=== PATIENT | male | born 1940 | race Caucasian/White ===

== ENCOUNTER → 2017-12-25 13:14 | Outpatient (CLI) | payer MEDICARE, SELFPAY ==
[2017-12-25 16:14] LABS: AST(SGOT) 20 U/L (15-37); Alanine Aminotransfer ALT/SGPT 39 U/L (16-61); Albumin, Serum 3.7 g/dL (3.2-5.0); Alkaline Phosphatase 74 U/L (45-117); Anion Gap 8 (5-15); BUN 20 mg/dL (7-18); Calcium,Total 8.8 mg/dL (8.5-10.1); Chloride 108 mmol/L (98-107); Creatinine, Serum 1.25 mg/dL (0.70-1.30); EST Glomerular Filtration Rate 60 mL/min (>60); Est Glom Filt Rate - Afr Amer 72 mL/min (>60); Globulin 3.8 g/dL (2.2-4.2); Glucose 124 mg/dL (74-106); Potassium 3.9 mmol/L (3.5-5.1); Protein, Total 7.5 g/dL (6.4-8.2); Sodium Level 144 mmol/L (136-145); T4 Free Direct 1.32 ng/dL (0.76-1.46); Thyroid Stim Hormone (TSH) 0.16 uIU/mL (0.358-3.74)
[2017-12-25 16:22] LABS: Vitamin B12 411 pg/mL (211-911); Vitamin D,25 Hydroxy 21.6 ng/mL (29.95-100.01)
[2017-12-25 16:29] LABS: Absolute Lymphocyte Count 1.41 X10^3/ul (0.83-4.51); Absolute Neutrophil Count 3.7 X10^3/uL (2.0-7.7); Basophil# 0.02 X10^3/uL; Basophil% 0.4 % (0-1); Eosinophil# 0.08 X10^3/uL; Eosinophils% 1.4 % (0-5); Hematocrit 43.9 % (40-54); Hemoglobin 14.7 g/dl (13.0-16.5); Lymphocyte # 1.41 X10^3/ul (4.0); Lymphocyte % 25.4 % (19-41); Mean Corp Hgb Conc 33.5 g/gl (32-36); Mean Corpuscular Hgb 30.4 pg (27.0-32.0); Mean Corpuscular Volume 90.9 fL (80-94); Mean Platelet Vol. 10.2 fl (6.2-12.0); Monocyte# 0.37 X10^3/uL; Monocyte% 6.7 % (0-10); Neutrophil # 3.66 X10^3/uL (2.7-7.7); Neutrophil % 65.9 % (47-70); Platelet Count 269 K/mm3 (150-450); RBC Distribution Width CV 13.2 % (11.6-14.6); RBC Distribution Width SD 43.9 fl (35.1-43.9); Red Blood Count 4.83 M/mm3 (4.6-6.2); White Blood Count 5.6 K/mm3 (4.4-11.0)
[2017-12-25 16:45] LABS: POSITIVE COUNT NO; POSITIVE DIFFERENTIAL NO; POSITIVE MORPHOLOGY NO
== END ==
PROVIDERS: Visit Provider Family Medicine
DX: R53.83 Other fatigue (principal); M79.7 Fibromyalgia; E03.9 Hypothyroidism, unspecified; E78.5 Hyperlipidemia, unspecified
CPT/HCPCS: 36415; 80053; 82306; 82607; 84439; 84443; 85025

== ENCOUNTER → 2018-04-28 17:08 | Outpatient (CLI) | payer MEDICARE, SELFPAY ==
--- NOTE | 2018-04-28 17:13 | CT_ITS ---
STUDY: CT ABDOMEN AND PELVIS WITHOUT CONTRAST REASON FOR EXAM: Male, 77 years old. Right flank pain, now resolved. 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 History of cholecystectomy and appendectomy. RADIATION DOSAGE (If Supplied By Facility): CTDIvol = ( 9.32 ) mGy, DLP = ( 458.72 ) mGycm TECHNIQUE: Transaxial images were obtained from the dome of the diaphragm to the symphysis pubis without oral contrast, and without intravenous contrast. Sagittal and coronal images were reconstructed. Individualized dose optimization techniques were used for this CT. COMPARISON: CT abdomen and pelvis with IV contrast March 19, 2017. FINDINGS: Minimal scarring or subsegmental atelectasis in the right lung base. The heart size is normal. Stable minor calcification along the mitral valve annulus. Normal liver. The portal vein diameter is 14.5 mm. There is non-visualization of the gallbladder, which may be secondary to either contraction or a prior cholecystectomy. The common bile duct diameter is 4.5 mm. Normal spleen. Normal pancreas. Normal bilateral adrenal glands. Normal right kidney. Stable left renal cortical cysts. The largest is the more superior of 2 adjacent cysts in the medial upper pole, measuring 4.2 x 3.55 x 4.15 cm. No hydronephrosis. Normal visualized stomach. Normal small intestine. There are occasional sigmoid colonic diverticula consistent with diverticulosis. There is non-visualization of the appendix. There is stable mild atherosclerotic calcification of the abdominal aorta and proximal iliac arteries, without a demonstrated aneurysm. Normal inferior vena cava. Normal retroperitoneum. Normal urinary bladder. The prostate gland is 5 x 4.4 x 3 cm (R 35 cc). There is a stable small umbilical hernia containing fat. Prior L4-5 laminectomies and posterior fusion of the spine L3-L5 with metal hardware again noted. Rounded depression of the right superior T12 vertebral endplate is no present. 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 CT/Abdomen/Pelvis without Cont IMPRESSION: 1. The gallbladder and appendix are not visualized, consistent with the history of prior resection. 2. Stable left renal cortical cysts. No hydronephrosis. 3. Occasional sigmoid diverticula without signs of acute diverticulitis. No sign of bowel obstruction. 4. Mild atherosclerotic vascular calcifications. 5. Enlarged prostate gland, unchanged. 6. Stable, fat-containing umbilical hernia. 7. Prior L4-5 laminectomies and posterior mid to lower lumbar spinal fusion with metal hardware again noted. New since previous exam is right sided rounded depression of the superior T12 vertebral endplate. Electronically Signed: Miah Fierro MD at 10:15 EST , Service support ,
--- OUTSIDE RECORDS SUMMARY | 2018-06-24 03:13 | XMS RPT_ITS ---
:1940 Author Organization OHIP Support Name Relationship Address Phone MAST, BRAD Unavailable [address] + [place] [address] R Unavailable Unavailable Unavailable MAST, BRAD Unavailable [address] + [place] [address] R Unavailable Unavailable Unavailable MAST, BRAD Unavailable [address] [phone] [place] [address] R Unavailable Unavailable Unavailable MAST, BRAD Unavailable [address] [phone] [place] [address] R Unavailable Unavailable Unavailable MAST, BRAD Unavailable [address] [phone] [place] [address] R Unavailable Unavailable Unavailable MAST, BRAD Unavailable [address] [phone] [place] [address] R Unavailable Unavailable Unavailable MAST, BRAD Unavailable [address] [phone] [place] [address] R Unavailable Unavailable Unavailable MAST, BRAD Unavailable [address] [phone] [place] [address] R Unavailable Unavailable Unavailable MAST, BRAD Unavailable [address] [phone] [place] [address] R Unavailable Unavailable Unavailable Care Team Providers Name Role Phone Elio Escamilla Attending Unavailable Jose Hernandez Primary Care Unavailable Elio Escamilla Referring Unavailable Elio Escamilla Attending Unavailable Jose Hernandez Primary Care Unavailable Mae Bazan Attending Unavailable Karis Ca Attending Unavailable Jose Hernandez Primary Care Unavailable Elio Escamilla Attending Unavailable Jose Hernandez Referring Unavailable Jose Hernandez Primary Care Unavailable Rina Berrios Attending Unavailable Geovanny Michelle Attending Unavailable Jose Hernandez Referring Unavailable Jose Hernandez Primary Care Unavailable Jose Hernandez Attending Unavailable Jose Hernandez Attending Unavailable Jose Hernandez Referring Unavailable Jose Hernandez Primary Care Unavailable PROBLEMS PROBLEMS DATE TYPE CONDITION / CODE ATTENDING STATUS SOURCE 05/07/2018 Unknown R10.9 - Jose Hernandez Active [place] [facility] abdominal pain / Hospital R10.9(ICD-10) Repository 12/25/2017 Unknown R53.83 - Other Jose Hernandez Active [place] fatigue / Community R53.83(ICD-10) Hospital Repository 12/25/2017 Unknown M79.7 - Jose Hernandez Active [place] Fibromyalgia / Community M79.7(ICD-10) Hospital Repository 12/25/2017 Unknown E03.9 - Jose Hernandez Active [place] Hypothyroidism, Community unspecified / Hospital E03.9(ICD-10) Repository 12/25/2017 Unknown E78.5 - Jose Hernandez Active [place] Hyperlipidemia, Community unspecified / Hospital E78.5(ICD-10) Repository 09/30/2017 Unknown K64.2 - Third [place], Active [place] degree hemorrhoids [facility] / K64.2(ICD-10) Hospital Repository 06/25/2017 Unknown K64.9 - [place], Active [place] Unspecified [facility] hemorrhoids / Hospital K64.9(ICD-10) Repository PROCEDURES PROCEDURES No Procedure Records FoundRESULTS RESULTS ABDOMEN/PELVIS WITHOUT Observed: 04/28/2018 Status: F Source: [place] CONT 5:14 PM [facility] H[facility]PITAL REPOSITORY [facility] Services [address] [place] [address] Abdomen/Pelvis without Cont MR#: [id number] Acct: [id number] Name: KULWANT ANDRADE Rep #: [id number] : 1940 M 77 From: Maximiliano Fierro MD PCP: Jose Hernandez MD Status: REG CLI Study: Abdomen/Pelvis without Cont Date of Exam: 04/28/18 Exam# [id number] Ordering Dr: Jose Hernandez MD STUDY: CT ABDOMEN AND PELVIS WITHOUT CONTRAST REASON FOR EXAM: Male, 77 years old. Right flank pain, now resolved. 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 History of cholecystectomy and appendectomy. RADIATION DOSAGE (If Supplied By Facility): CTDIvol = ( 9.32 ) mGy, DLP = ( 458.72 ) mGycm TECHNIQUE: Transaxial images were obtained from the dome of the diaphragm to the symphysis pubis without oral contrast, and without intravenous contrast. Sagittal and coronal images were reconstructed. Individualized dose optimization techniques were used for this CT. COMPARISON: CT abdomen and pelvis with IV contrast March 19, 2017. FINDINGS: Minimal scarring or subsegmental atelectasis in the right lung base. The heart size is normal. Stable minor calcification along the mitral valve annulus. Normal liver. The portal vein diameter is 14.5 mm. There is non-visualization of the gallbladder, which may be secondary to either contraction or a prior cholecystectomy. The common bile duct diameter is 4.5 mm. Normal spleen. Normal pancreas. Normal bilateral adrenal glands. Normal right kidney. Stable left renal cortical cysts. The largest is the more superior of 2 adjacent cysts in the medial upper pole, measuring 4.2 x 3.55 x 4.15 cm. No hydronephrosis. Normal visualized stomach. Normal small intestine. There are occasional sigmoid colonic diverticula consistent with diverticulosis. There is non-visualization of the appendix. There is stable mild atherosclerotic calcification of the abdominal aorta and proximal iliac arteries, without a demonstrated aneurysm. Normal inferior vena cava. Normal retroperitoneum. Normal urinary bladder. The prostate gland is 5 x 4.4 x 3 cm (R 35 cc). There is a stable small umbilical hernia containing fat. Prior L4-5 laminectomies and posterior fusion of the spine L3-L5 with metal hardware again noted. Rounded depression of the right superior T12 vertebral endplate is no present. 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 CT/Abdomen/Pelvis without Cont IMPRESSION: 1. The gallbladder and appendix are not visualized, consistent with the history of prior resection. 2. Stable left renal cortical cysts. No hydronephrosis. 3. Occasional sigmoid diverticula without signs of acute diverticulitis. No sign of bowel obstruction. 4. Mild atherosclerotic vascular calcifications. 5. Enlarged prostate gland, unchanged. 6. Stable, fat-containing umbilical hernia. 7. Prior L4-5 laminectomies and posterior mid to lower lumbar spinal fusion with metal hardware again noted. New since previous exam is right sided rounded depression of the superior T12 vertebral endplate. Electronically Signed: Miah Fierro MD at 10:15 EST , Service support , CC: Jose Hernandez MD Nurse Staff [facility]: Signed COMPREHENSIVE METABOLIC Collected: 12/25/2017 Status: F Source: [place] PROFIL 1:16 PM REPOSITORY TYPE CODE TESTS RESULT OUT OF RANGE REFERENCE UNITS LAB L501.0100 74-106 mg/dL High GLU 124 Result Comment: Fasting Glucose result from 100 to 125 mg/dL suggests IMPAIRED HOMEOSTASIS per A.D.A. criteria. Please note revised GLUCOSE reference range effective 2017. LAB L501.1000 7-18 mg/dL High BUN 20 LAB L501.1100 0.70-1.30 mg/dL Normal CREAT,SERUM 1.25 Result Comment: The validity of the calculated GFR AND GFRAA in patients over 70 years has not been determined. Clinical correlation is essential. LAB L501.1110 >60 mL/min Normal EST GFR 60 Result Comment: Non- GFR Calc LAB L501.1115 >60 mL/min Normal EST GFR - AA 72 Result Comment: GFR Calc LAB L501.1300 10-20 RATIO Normal BUN/CRE 16.0 LAB L501.1500 6.4-8.2 g/dL T Normal PROT 7.5 LAB L501.1800 3.2-5.0 g/dL Normal ALB 3.7 LAB L501.1950 2.2-4.2 g/dL Normal GLOB 3.8 LAB L501.2000 0.9-2.4 RATIO Normal A/G 1.0 LAB L501.2200 8.5-10.1 mg/dL CA Normal 8.8 LAB L501.4100 15-37 U/L Normal AST 20 LAB L501.4305 45-117 U/L Normal ALK P 74 LAB L501.4405 16-61 U/L Normal ALT 39 LAB L501.4600 0.20-1.00 mg/dL High T BILI 1.20 LAB L501.5300 136-145 mmol/L NA Normal 144 LAB L501.5600 3.5-5.1 mmol/L K Normal 3.9 LAB L501.5900 98-107 mmol/L High CL 108 LAB L501.6100 21.0-32.0 mmol/L Normal CO2 28.0 LAB L501.6200 5-15 Normal GAP 8 Performed By: #### L500.4050, L501.9520, L506.0400 #### [facility] [address] [place], [address] THYROID STIM HORMONE Collected: 12/25/2017 Status: F Source: [place] (TSH) 1:16 PM REPOSITORY TYPE CODE TESTS RESULT OUT OF RANGE REFERENCE UNITS LAB L501.9520 0.358-3.74 uIU/mL Low TSH 0.16 Performed By: #### L500.4050, L501.9520, L506.0400 #### [facility] [place], [address] T4 FREE DIRECT Collected: 12/25/2017 Status: F Source: [place] 1:16 PM REPOSITORY TYPE CODE TESTS RESULT OUT OF RANGE REFERENCE UNITS LAB L506.0400 0.76-1.46 ng/dL Normal T4 FREE 1.32 DIRECT Performed By: #### L500.4050, L501.9520, L506.0400 #### [facility] [place], [address] VITAMIN B12 Collected: 12/25/2017 Status: F Source: [place] 1:16 PM REPOSITORY TYPE CODE TESTS RESULT OUT OF RANGE REFERENCE UNITS LAB L503.0105 211-911 pg/mL Normal Vitamin B12 411 Performed By: #### L503.0105, L506.1000 #### [facility] [address] [place], [address] VITAMIN D,25 HYDROXY Collected: 12/25/2017 Status: F Source: [place] 1:16 PM REPOSITORY TYPE CODE TESTS RESULT OUT OF REFERENCE UNITS RANGE LAB L506.1000 29.95-100.01 ng/mL Low Vitamin D 21.6 25-OH Result Comment: Vitamin D 25(OH) Status Range Deficiency <20 ng/mL (50nmol/L) Insuffciency 20 - 30 ng/mL (50 - 75 nmol/L) Sufficiency 30 - 100 ng/mL (75 - 250 nmol/L) Toxicity >100 ng/mL (>250 nmol/L) Performed By: #### L503.0105, L506.1000 #### [facility] [place], [address] CBC W/DIFF, AUTOMATED Collected: 12/25/2017 Status: F Source: [place] 1:16 PM REPOSITORY TYPE CODE TESTS RESULT OUT OF RANGE REFERENCE UNITS LAB L100.1000 4.4-11.0 K/mm3 Normal WBC 5.6 LAB L100.1200 4.6-6.2 M/mm3 Normal RBC 4.83 LAB L100.1300 13.0-16.5 g/dl Normal HGB 14.7 LAB L100.1400 40-54 % Normal HCT 43.9 LAB L100.1500 80-94 fL Normal MCV 90.9 LAB L100.1600 27.0-32.0 pg Normal MCH 30.4 LAB L100.1700 32-36 g/gl Normal MCHC 33.5 LAB L100.1810 11.6-14.6 % Normal RDW CV 13.2 LAB L100.1820 35.1-43.9 fl Normal RDW SD 43.9 LAB L100.1900 150-450 K/mm3 Normal PLT 269 LAB L100.2000 6.2-12.0 fl Normal MPV 10.2 LAB L100.2100 47-70 % Normal NEUT% 65.9 LAB L100.2200 19-41 % Normal LY% 25.4 LAB L100.2300 0-10 % Normal MONO% 6.7 LAB L100.2400 0-5 % Normal EO% 1.4 LAB L100.2500 0-1 % Normal BASO% 0.4 LAB L100.2550 0.0-0.9 % Normal IM GRAN % 0.200 Result Comment: IG% - Immature Granulocytes (promyelocytes, myelocytes and metamyelocytes) > 1% indicates that a LEFT SHIFT is Present. LAB L100.2620 2.0-7.7 X10 3/uL Normal Absolute Neut 3.7 LAB L100.2720 0.83-4.51 X10 3/ul Normal Absolute Lymph 1.41 Performed By: #### L100.0100 #### [facility] [address] [place], [address] CARDIOLOGY VISIT Observed: 10/07/2017 Status: F Source: [place] REPORT 12:58 PM REPOSITORY [facility] [address] [place] [address] OFFICE VISIT Date of Service: 10/07/17 MR#: [id number] Acct: [id number] Name: KULWANT ANDRADE Rep #: [id number] : 1940 Provider: Geovanny Michelle MD Age/Sex: 77/M Location: [facility] Status: Signed HPI HPI Details: KULWANT ANDRADE, is a 77 M who presents to the office today for for outpatient cardiovascular follow-up of his history of an underlying cardiomyopathy, ventricular ectopy with PVCs status post EPS/RFA (2002), hyperlipidemia, and hypertension. He states overall since his last outpatient cardiovascular visit on 02/11/2017 that he has been doing well. He notes the adjustment of medications appears to be working well for him as he has not been complaining of chest discomfort, his breathing has been improved, his lower extremity edema has improved, and he is not having ongoing palpitations or near syncope or syncope. Intake Vital Signs10/07/17 Height 6 ft 1 in 10/07/17 Weight: 181 lb 10/07/17 Body Mass Index (BMI) 23.8 10/07/17 Blood Pressure 142/72 Intake Visit Reasons: 6 M FU Allergies erythromycin base Allergy (Verified 10/07/17 11:48) Hives amoxicillin [From Augmentin] Adverse Reaction (Severe, Verified 10/07/17 11:48) Itching atorvastatin Adverse Reaction (Severe, Verified 10/07/17 11:48) myalgias clavulanic acid [From Augmentin] Adverse Reaction (Severe, Verified 10/07/17 11:48) Itching fenofibrate [From Tricor] Adverse Reaction (Severe, Verified 10/07/17 11:48) myalgias levofloxacin [From Levaquin] Adverse Reaction (Unknown, Verified 10/07/17 11:48) Unknown Medications Amlodipine Besylate [Norvasc] 10 mg PO DAILY 04/15/17 [History Confirmed 10/07/17] Levothyroxine Sodium [Levoxyl] 100 mcg PO DAILY 04/15/17 [History Confirmed 10/07/17] Lisinopril [Zestril] 20 mg PO DAILY 04/15/17 [History Confirmed 10/07/17] Omeprazole [Prilosec] 20 mg PO DAILY 04/15/17 [History Confirmed 10/07/17] spironolactone 25 mg tablet 25 mg PO DAILY #30 tab 10/06/17 [Rx Confirmed 10/07/17] [facility] Medical History White coat syndrome with hypertension (Acute) Premature ventricular contraction (Acute) Bigeminy (Acute) Cardiomyopathy in other diseases classified elsewhere (Chronic) Hyperlipidemia (Chronic) Hypertension (Chronic) Premature atrial contractions (Acute) Acid reflux (Acute) Blood in stool (Acute) Hemorrhoid (Acute) Hypothyroid (Acute) Syncope (Acute) BPH (benign prostatic hyperplasia) (Chronic) DDD (degenerative disc disease) (Chronic) Fibromyalgia (Chronic) HTN (hypertension) (Chronic) 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) Benign neoplasm of right kidney (Resolved) Surgical History Hx of appendectomy (Chronic) H/O hemorrhoidectomy (Resolved) History of back surgery (Resolved) History of cholecystectomy (Resolved) History of kidney surgery (Resolved) History of radiofrequency ablation procedure for cardiac arrhythmia (Resolved 10/2002) Family History Father CVA (cerebral vascular accident) Hypertension Heart disease Mother CAD (coronary artery disease) Brother Hypertension Brother CAD (coronary artery disease) Hypertension Sister Hypertension Sister Patent foramen ovale Sister Hypertension Lung cancer Social History Smoking Status: Never smoker alcohol intake: never substance use type: does not use ROS Const Const: Negative for fatigue, weakness, weight gain, weight loss, frequent falls or excessive sweating Eyes Eyes: Negative for change in vision, blurry vision or transient loss of vision ENT ENT: Negative for dizziness or balance problems Cardio Chest Pain: No Palpitations: No Edema: None Muscle aches with walking: None Resp Respiratory: Negative for SOB with activity or SOB at rest GI GI: Negative vomiting or vomiting blood/hematemesis : Negative for hematuria Musc Musc: Negative for balance problems, muscle aches/ myalgia, muscle weakness or joint pain Skin Skin: Negative non-healing lesions or rash Neuro Neuro: Negative for weakness, blurry vision, dizziness, lightheadedness, frequent falls or orthostatic symptoms Ifeanyi Hematologic/Lymphatic: Negative for easy bleeding Endo Endo: Negative for fatigue or excessive sweating Psych Psych: Negative for anxiety or depression Allergy Allergy/Immunology: Negative for hives, Negative for rash Cardiology Exam Const Appearance: cooperative, healthy appearing, comfortable, no acute distress, well developed and well groomed Nutritional Appearance: thin Orientation: alert, awake and oriented x3 Head Head: normal to inspection, normocephalic and atraumatic Ears: hearing grossly normal bilaterally Nose: external nose normal Face and Sinus: face symmetric Teeth and gingiva: fair dentition Eyes General: appearance normal, both eyes and all related structures Eyelids: eyelids normal Conjunctivae: conjunctivae normal Pupils: PERRL EOM: EOM intact bilaterally Neck Neck: normal visual inspection and full ROM Carotids: normal carotid upstroke Chest Chest inspection: normal inspection of the chest and symmetric chest movement Auscultation: Bilateral: Clear to Auscultation Cardio Palpation: normal PMI Rate: regular rate Rhythm: regular rhythm and ectopic beats Heart sounds: S1 normal and S2 normal GI GI: normal to inspection, soft, no hepatosplenomegaly and bowel sounds present Neuro General: alert, awake, oriented x3, gait normal, moves all extremities, no focal sensory deficit and no focal motor deficits Skin Skin: no rashes or lesions noted Extremities Pulses: Normal: Right Radial Pulse, Left Radial Pulse Lower Extremity Edema: Trace: Bilateral Psych Psychological: normal affect Assessment AND Plan 1. Cardiomyopathy in other diseases classified elsewhere I43 Plan At the present time he appears to be doing well overall. He is going to continue his current cardiovascular medical management. It was not felt he required further cardiac diagnostic studies or therapeutic intervention at this time. 2. Premature ventricular beat I49.3 Plan He does have a history of ventricular ectopy as noted above. He appears to be without any obvious ongoing symptoms. He will continue medical management and follow-up. 3. Hyperlipidemia, unspecified hyperlipidemia type E78.5 Plan He does have a history of hyperlipidemia. This is being followed by his primary care physician. He believes it has been under good control. 4. Essential hypertension I10 Plan His blood pressure overall has improved compared to previous concerns. He will continue medical management and follow-up. Plan Detail Additional Comments He will be scheduled for an outpatient visit. He was asked to notify the office of any concerns in the interim. Thank you for allowing me to participate in the care of your patient. Please don't hesitate to call if any issues arise. This note was generated using a voice recognition system and there may be incorrect words, spelling or punctuation that were not noted when reviewing the office note prior to saving. Follow Up 9 Months Coding Level of Care Code Off vis,est,level 3 Diagnoses Cardiomyopathy in other diseases classified elsewhere I43 Premature ventricular beat I49.3 Hyperlipidemia, unspecified hyperlipidemia type E78.5 Hyperlipidemia type: unspecified Essential hypertension I10 Hypertension type: essential hypertension Coding Level of Care Code Off vis,est,level 3 Diagnoses Cardiomyopathy in other diseases classified elsewhere I43 Premature ventricular beat I49.3 Hyperlipidemia, unspecified hyperlipidemia type E78.5 Hyperlipidemia type: unspecified Essential hypertension I10 Hypertension type: essential hypertension 10/07/17 1258 <Electronically signed by Geovanny Michelle MD> Date Geovanny Michelle MD Cosigner Signature: Date (if applicable) CC: Jose Hernandez SURGERY VISIT REPORT Observed: 06/19/2017 Status: F Source: [place] 2:51 PM REPOSITORY [facility] [address] [address] OFFICE VISIT Date of Service: 06/18/17 MR#: [id number] Acct: [id number] Name: KULWANT ANDRADE Rep #: [id number] : 1940 Provider: Elio Escamilla MD Age/Sex: 76/M Location: [facility] Status: Signed Intake Intake Visit Reasons: Hemorrhoidectomy 06/04 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 Is patient in pain?: No Allergies erythromycin base Allergy (Verified 06/18/17 12:58) Hives Medications Amlodipine Besylate [Norvasc] 10 mg PO DAILY 04/15/17 [History Confirmed 06/18/17] Levothyroxine Sodium [Levoxyl] 100 mcg PO DAILY 04/15/17 [History Confirmed 06/18/17] Lisinopril [Zestril] 20 mg PO DAILY 04/15/17 [History Confirmed 06/18/17] Omeprazole [Prilosec] 20 mg PO DAILY 04/15/17 [History Confirmed 06/18/17] Spironolactone [Aldactone] 25 mg PO DAILY 04/15/17 [History Confirmed 06/18/17] Oxycodone HCl/Acetaminophen [Percocet 5/325] 1 - 2 tab PO Q4H PRN PRN #50 tab 06/04/17 [Rx Confirmed 06/18/17] PFSH Medical History Bloody stools (Acute) Hemorrhoid (Acute) Acid reflux (Acute) Hypothyroid (Acute) HTN (hypertension) (Chronic) Surgical History H/O hemorrhoidectomy (Acute) Social History Smoking Status: Never smoker HPI HPI HPI: KULWANT ANDRADE, is a 76 M who presents to the office today for follow-up after hemorrhoidectomy. The patient reports he had a rough 2 weeks but now he is feeling much better over the last few days. He is noticing no blood in his stool and he is having soft bowel movements with the aid of a stool softener. He is currently not having pain. Exam GI Rectal Exam: visual inspection normal, normal sphincter tone Assessment AND Plan Problems 1. Grade III hemorrhoids K64.2 Plan 1. Patient is doing well after hemorrhoidectomy. I asked the patient to continue his stool softener to prevent recurrence of hemorrhoids. Follow-up as needed. Elio Escamilla MD Pager: [facility] [address], [address] [place] [address] Office: Coding Level of Care Code Global Post Op Diagnoses Grade III hemorrhoids K64.2 Hemorrhoid type: third degree 06/19/17 1451 <Electronically signed by Elio Escamilla MD> Date Elio Escamilla MD Cosigner Signature: Date (if applicable) CC: Jose Hernandez EMERGENCY DEPARTMENT Observed: 06/06/2017 Status: F Source: [place] SUMMARY 8:17 AM REPOSITORY [facility] Medical Records Department [address] [place] [address] Emergency Department Summary 06/06/17 0754 MR#: [id number] Acct: [id number] Name: KULWANT ANDRADE Rep #: [id number] : 1940 76 From: Mae Bazan MD PCP: Jose Hernandez Status: REG ER - ER Visit Summary Date of Service: 06/06/17 Chief Complaint: [] Urinary retention, hemorrhoid surgery 2 days ago History of Present Illness: The patient is a 76 M [] healthy individual had hemorrhoid surgery 2 days ago since then he has had healthy producing urinary output for the last 12 hours or so he cannot produce any urine. His a rectal pain has improved to the point he stopped taking his OxyContin he has no abdominal pain no bleeding no fever no cough he is eating and drinking without difficulty he is passing gas per rectum, he generally has no issues of urinary retention, he scheduled to see a surgeon whose name starts with martín Patel in a few days follow-up Physical Examination: [] Is in no distress his vital signs are normal head neck chest unremarkable the abdomen soft nontender, there is minimal distention over the bladder, this area is really nontender, the rectal exam shows healed rectal tissue no bleeding no masses he indicates is a packet his rectum over the digital rectal exam I do not appreciate a pack there is no bleeding there is no pain there is no stool but thin runny liquid from his rectum no fecal impaction good rectal tone and again no bleeding mass or abscess very little pain, the rest exams unremarkable Test Results: [] Straight cath Andrews was done at his request productive of 500 cc of clear yellow urine again he did not wish to have a long-term Andrews he understood the risk of persistent urinary retention and the need to return to the emergency department etc. but again he declined a Andrews Emergency Department Course and Treatment: [] Patient states he believes was a pack in place he does not know the name of the surgeon other than the last name begins with a P, at this time I explained we could do screening labs IV fluids imaging etc. he declined all that he wanted his bladder drained he refused a long-term Andrews catheter, he underwent straight cath we collected a UA urine culture clinically looks well he feels better he wants to go home he will follow-up with his surgeon for all of the above stay in a high-fiber diet stop the narcotics, he knows a urine culture results are pending and he will have a surgeon check those he will return for change in symptoms, he wants nothing further done from the emergency department Treatment Plan: [] Disposition: [] Home stable Impression: [] Urinary retention, recent hemorrhoid surgery, patient declines further ED evaluation This note was generated with Civo dictation software. It may contain incorrect words, spelling, and punctuation that were not noted in review of the chart prior to signing ED Disposition - Plan for ED Patient: Chief Complaint: Complaint Instructions: ED Retention Urinary Male Referrals: Jose Hernandez MD [Primary Care Provider] - Additional Instructions: Follow-up with your surgeon the next few days What to do if you have Problems For any increased pain, shortness of breath, bleeding, nausea or vomiting, chest pain, or any unexpected problems, contact your Primary Care Provider. Call [facility] ([phone]) or report to the closest Emergency Room. Call 911 if necessary. 06/06/17 0820 <Electronically signed by Mae Bazan MD> Date Mae Bazan MD Cosigner Signature (If Indicated): Date CC: Jose Hernandez DISCHARGE INSTRUCTION Observed: 06/06/2017 Status: F Source: [facility] 7:57 AM [facility] HOSPITAL REPOSITORY [facility] Medical Records Department [address] [place] [address] Discharge Instruction 06/06/17 0757 MR#: [id number] Acct: [id number] Name: KULWANT ANDRADE Rep #: [id number] : 1940 76 From: Mae Bazan MD PCP: Jose Hernandez Status: REG ER ED Disposition - Plan for ED Patient: Chief Complaint: Complaint Instructions: ED Retention Urinary Male Referrals: Jose Hernandez MD [Primary Care Provider] - Additional Instructions: Follow-up with your surgeon the next few days What to do if you have Problems For any increased pain, shortness of breath, bleeding, nausea or vomiting, chest pain, or any unexpected problems, contact your Primary Care Provider. Call [facility] ([phone]) or report to the closest Emergency Room. Call 911 if necessary. 06/06/17 0757 <Electronically signed by Mae Bazan MD> Date Mae Bazan MD Cosigner Signature (If Indicated): Date CC: Jose Hernandez URINALYSIS, COMPLETE Collected: 06/06/2017 Status: F Source: [facility] 7:53 AM [facility] HOSPITAL REPOSITORY Order Comment: Order Date: 06/06/17 How was Urine Obtained? MINE WIRER TO SPECIFY TYPE CODE TESTS RESULT OUT OF RANGE REFERENCE UNITS LAB L400.3000 Yellow COLOR Normal Yellow LAB L400.3050 Clear Normal CLARITY Clear LAB L400.3200 Normal mg/dl Normal GLUCOSE, UR Normal LAB L400.3300 Negative mg/dL Normal BILIRUBIN URINE Negative LAB L400.3400 Negative mg/dl Normal KETONE UR Negative LAB L400.3465 1.002-1.030 Normal SP.GR. DIPSTX 1.015 LAB L400.3550 5.0 - 8.0 pH UR Normal 6.5 LAB L400.3600 Negative mg/dl PROT Normal DIPSTX Negative LAB L400.3700 Normal mg/dl Normal UROBILI Normal LAB L400.3750 Negative Normal NITRITE UR Negative LAB L400.3780 Negative /ul High 25 OCCULT BLOOD-UR LAB L400.3800 Negative /ul LEUK Normal ESTERASE Negative LAB L400.4050 0-5 /hpf WBC 0 Normal SEEN LAB L400.4100 0-5 /hpf Normal RBC-UA 0-5 SEEN LAB L400.4150 0-5 /hpf SQUAM 0 Normal EPI SEEN LAB L400.4300 None Seen /hpf 0 Normal BACTERIA SEEN LAB L400.4350 <or=2+ /hpf 0 Normal MUCUS, URINE SEEN Performed By: #### L400.0001 #### [facility] [address] [place], [address] Observed: 06/06/2017 Status: F Source: [place] CULTURE, URINE 7:53 AM REPOSITORY Order Date: 06/06/17 Urine Culture Culture exhibits no growth. Performed By: #### M100.0650 #### [facility] [address] [place], [address] DISCHARGE INSTRUCTION Observed: 06/04/2017 Status: F Source: [place] 12:44 PM REPOSITORY [facility] Medical Records Department [address] [place] [address] Instructions for Home/Discharge Instructions 06/04/17 1243 MR#: [id number] Acct: [id number] Name: KULWANT ANDRADE Rep #: [id number] : 1940 76 From: Elio Escmailla MD PCP: Jose Hernandez Status: REG [facility] Discharge Diet: No Restrictions Discharge Activity: Return to Normal Activity, May Not Drive - while you are taking narcotic pain medications. Do not drive, work with heavy equipment or sign legal documents for 24 hours after your surgery. Additional Activity Instructions:: Be aware that pain medications may cause nausea. You should typically eat light foods as you take your pain medications. Pain medications may also cause constipation, if you have difficulty with this please discuss with your doctor. Call your doctor if your incision/area has: Continuous Slow Oozing, Sudden Increased Bleeding, Increased Pain/ Swelling, Increased Redness, Foul Smelling Discharge, Swelling at the incision site Call your doctor if you observe: Fever of 101 or Higher Additional Dressing/Incision Instructions:: Leave the operative bandage on for 2 days. If a local anesthetic plug was placed in the anal area, try not to expel for 24-[address] dibucaine ointment on the perianal area as needed. Sitz baths twice daily and after bowel movements. Allergies/Adverse Reactions: Allergies erythromycin base Allergy (Verified 05/28/17 09:17) Hives Medications to take at Discharge Amlodipine Besylate [Norvasc] 10 mg PO DAILY 04/15/17 Levothyroxine Sodium [Levoxyl] 100 mcg PO DAILY 04/15/17 Lisinopril [Zestril] 20 mg PO DAILY 04/15/17 Metoprolol Succinate 50 mg PO DAILY 04/15/17 Omeprazole [Prilosec] 20 mg PO DAILY 04/15/17 Spironolactone [Aldactone] 25 mg PO DAILY 04/15/17 Oxycodone HCl/Acetaminophen [Percocet 5/325] 1 - 2 tablet PO Q4H PRN PRN #50 tablet 06/04/17 The following prescriptions were given: Oxycodone HCl/Acetaminophen [Percocet 5/325] 1 - 2 tablet PO Q4H PRN PRN #50 tablet PRN Reason: Pain Primary Care Physician: Jose Hernandez MD [Primary Care Provider] - Please Follow Up With: Elio Escamilla MD When: call tomorrow to make 2 week follow up appt [phone] 06/04/17 9429 <Electronically signed by Elio Escamilla MD> Date Elio Escamilla MD CC: Jose Hernandez OPERATIVE REPORT Observed: 06/04/2017 Status: F Source: [place] 12:43 PM REPOSITORY [facility] Medical Records Department [address] [place] [address] Operative Report 06/04/17 1240 MR#: [id number] Acct: [id number] Name: KULWANT ANDRADE Rep #: [id number] : 1940 76 From: Elio Escamilla MD PCP: Jose Hernandez Status: REG [facility] [place] Location: [place] [address] Problem List (1) Hemorrhoid Status: Acute Qualifiers: Hemorrhoid type: third degree Qualified Code(s): K64.2 - Third degree hemorrhoids (2) Bloody stools Status: Acute Report of Operation Date of Procedure: 06/04/17 Pre-Operative Diagnosis: Ulcerated external and internal grade 3 hemorrhoid Post-Operative Diagnosis: Same Surgery/Procedure Performed:: Exam under anesthesia with hemorrhoidectomy of external and internal hemorrhoid in the left lateral column Specimen's removed: Left lateral hemorrhoid Description of Procedure: The patient was brought back to the operating room and general anesthesia was induced and the patient was placed in a prone jackknife position. The perineal and rectal area was prepped with Betadine. Next a well-lubricated finger was used to perform a rectal exam and a rectal retractor was placed into the canal. In the left lateral position the patient had an ulcerated external hemorrhoid as well as a grade 3 internal hemorrhoid. The hemorrhoid was grasped and retracted medially and a scalpel was used to excise the mucosa. Once the mucosa was fully excised it was dissected free from the muscle and sphincter. Once it was freed and excised it was sent for pathology. The mucosa was reapproximated with a running locked 3-0 chromic suture and tied. The stasis appeared good. The remaining rectum was examined. Due to the amount of mucosa that was removed with a left lateral hemorrhoid I elected not to remove any other columns for risk of stricture. The area was then irrigated and suctioned and a four-quadrant pudendal nerve block was performed with Marcaine. The area just external to the hemorrhoid area was also anesthetized with Marcaine. Next a Gelfoam pad was coated with dibucaine cream and rolled and inserted into the rectum. Bandages and mesh gauze panties were then applied. The patient was taken to PACU in stable condition and tolerated the procedure well. - Admit VTE Documentation VTE Mechan Device Prophylaxis: SCD's 06/04/17 1243 <Electronically signed by Elio Escamilla MD> Date Elio Escamilla MD CC: Elio Escamilla MD; Jose Hernandez Signed HEMORRHOIDS Observed: 06/04/2017 Status: F Source: [place] 12:00 PM REPOSITORY Patient: KULWANT ANDRADE : 1940 (76/M) Acct Num: [id number] Phys: Andi BHATT,Elio Unit Num: [id number] Loc: [facility] Specimen: [id number] Received: 06/04/171316 Spec Type: HEMORRHOID TISSUES TISSUES: HEMORRHOIDS GROSS DESCRIPTION Received in fixative is one container labeled with the patient's name and designated left lateral column hemorrhoids. The specimen consists of a single glistening fragment of pink-tovar mucosa with attached hemorrhagic submucosal tissue measuring 3 x 2 x 0.8 cm. Optical Dispenser sections are submitted in one cassette. / AM:thelma 06/04/17 TC:2 CPT: 20783 HEADER OPERATION: EUA, hemorrhoidectomy PRE-OP DIAGNOSIS: Hemorrhoids TISSUE SUBMITTED: Left lateral column hemorrhoids MICROSCOPIC DESCRIPTION Slides are reviewed. MICROSCOPIC DIAGNOSIS Left lateral column hemorrhoids, hemorrhoidectomy: Vascular ectasia and thrombosis consistent with hemorrhoids. Ulceration with associated granulation and acute and chronic inflammation and fibrinopurulent material. AM:thelma 06/05/17 Signed Kevin Charles 06/05/17 <signature on file> Performed By: #### PHEM #### [facility] [address] [place], [address] HISTORY AND PHYSICAL Observed: 06/04/2017 Status: F Source: [place] EXAM 11:48 AM REPOSITORY [facility] Medical Records Department [address] [place] [address] History and Physical 06/04/17 1145 MR#: [id number] Acct: [id number] Name: KULWANT ANDRADE Rep #: [id number] : 1940 76 From: Elio Escamilla MD PCP: Jose Hernandez Status: REG [facility] [place] Location: [place] [address] Problem List (1) Hemorrhoid Status: Acute Qualifiers: Hemorrhoid type: third degree Qualified Code(s): K64.2 - Third degree hemorrhoids (2) Bloody stools Status: Acute History of Present Illness Date of Admission: 06/04/17 The patient is a 76 year old M who I performed a colonoscopy on last month. He did have an ulcerated external hemorrhoid as well as several large internal hemorrhoids. I recommended this be removed as the patient is having bloody drainage in his underwear. His colonoscopy was otherwise normal. Past Medical History Allergies erythromycin base Allergy (Verified 05/28/17 09:17) Hives Home Medications: Ambulatory Orders Medication Instructions Recorded Amlodipine Besylate [Norvasc] 10 mg PO DAILY 04/15/17 Levothyroxine Sodium [Levoxyl] 100 mcg PO DAILY 04/15/17 Surgical History: - - Abdominal tumor 1974, hemorrhoidectomy in 1992, back surgery 1998, kidney surgery in 2001, cholecystectomy, appendectomy, cardiac ablation Smoking Status: Never smoker Alcohol: None Drugs: None - *Family History Maternal History Items: Heart Disease Review of Systems Constitutional: Denies: Anorexia, Chills, Fever HEENT: Denies: Difficulty Swallowing Cardiovascular: Denies: Chest Pain Respiratory: Denies: Shortness of Breath Gastrointestinal: Reports: - - Blood in his underwear. Hemorrhoids. Denies: Abdominal Pain Musculoskeletal: Denies: Arm Pain, Joint Tenderness Psychiatric: Denies: Anxiety, Depression VTE Information - Inpt Only VTE Present on Admission: No VTE Mechan Device Prophylaxis: SCD's Patient Problems: Active and Suspected Problems Hemorrhoid (Acute) - Physical Exam General: Alert, Oriented x3, Cooperative HEENT: Atraumatic, PERRLA, EOMI, Normocephalic Neck: Supple, No JVD Lungs: Normal air movement Cardiovascular: Regular rate, Regular Rhythm Abdomen: Soft, Non Tender, Non-Distended Vital Signs Temp Pulse Resp BP Pulse Ox 97.6 F L 77 16 127/80 H 98 06/04/17 09:45 06/04/17 09:45 06/04/17 09:45 06/04/17 09:45 06/04/17 09:45 Oxygen Delivery Method Room Air Weight: 187 lb 9.814 oz Body Mass Index (BMI) 25.4 Assessment/Plan Active and Suspected Problems Hemorrhoid (Acute) 76-year-old male for exam under anesthesia with hemorrhoidectomy 1. The patient has an ulcerated external hemorrhoid which is causing him discharge and is nonhealing. He also has several large internal hemorrhoids which are bleeding. I discussed hemorrhoid ectomy with the patient including the risks of bleeding, infection, pain after surgery. The patient understands the risks and is willing to proceed with surgery. Elio Escamilla MD Pager: [facility] [address], [address] [address] Office: 06/04/17 1279 <Electronically signed by Elio Escamilla MD> Date Elio Escamilla MD Cosigner Signature: Date (if applicable) CC: Elio Escamilla MD; Jose Hernandez Signed ALLERGIES ALLERGIES DATE TYPE / CODE NAME / CODE REACTION SEVERITY SOURCE 10/07/2017 Drug erythromycin Hives Unknown [place] Allergy/416 base/[id number](RXN [facility] 585943([facility] ED CT) Repository 10/07/2017 Drug clavulanic Itching [place] Allergy/416 acid/[id number](RXN [facility] 195757([facility] ED CT) Repository 10/07/2017 Drug amoxicillin/M483991 Itching [place] Allergy/416 675(RXNORM) Community 829441([facility] ED CT) Repository 10/07/2017 Drug fenofibrate/Y656543 MYALGIAS [place] Allergy/416 789(RXNORM) [facility] 629466([facility] ED CT) Repository 10/07/2017 Drug levofloxacin/D44248 Unknown Unknown [place] Allergy/416 6299(RXNORM) [facility] 256610([facility] ED CT) Repository 10/07/2017 Drug atorvastatin/G56730 MYALGIAS SV [place] Allergy/416 6321(RXNORM) [facility] 794253([facility] ED CT) Repository ENCOUNTERS ENCOUNTERS ADMIT/DISCHARGE ACCOUNT ADMITTING ENCOUNTER LOCATION SOURCE NUMBER CLASS 04/28/2018 [id number] Ambulatory [place] 0 [facility] ing:CT Repository 12/25/2017 [id number] Ambulatory [place] 9 [facility] ing:BFHLAB Repository 10/07/2017/ [id number] Ambulatory BMSBuilding:B [place] 8 9 [facility] Repository 10/01/2017 [id number] Ambulatory BMSBuilding:B [place] 9 [facility] Repository 06/18/2017/ [id number] Ambulatory BMSBuilding:B [place] 8 5 [facility] Repository 06/08/2017 [id number] Ambulatory [place] Evelyn 9 [facility] ing:LAB.[facility]UTUR Repository E 06/06/2017/ [id number] Emergency [place] Evelyn 8 3 [facility] ing:ED Repository 06/04/2017/ [id number] Ambulatory Evelyn [place] 8 1 [facility] ing:SDC Repository 06/04/2017 [id number] Ambulatory BMSBuilding:W [place] 5 [facility] Repository PAYERS PAYERS ENCOUNTER GUARANTOR PAYER SUBSCRIBER SOURCE 04/28/2018 KULWANT S Primary KULWANT S [place] [id number] Insurance:AETNA SUMMERSDOB: [facility] Number: [id number] [id number] Repository [address]Erq: ([phone]) Date:6153-72-41XT [phone] () [id number] MONISHA LAZO [address]MH: 04/28/2018 Secondary NOT GIVENUNK [place] Insurance:SELF PAY [facility] Number: Effective Repository Date:2018-04-27 12/25/2017 KULWANT S Primary KULWANT S [place] [id number] Insurance:AETNA SUMMERSDOB: [facility] Number: [id number] [id number] Repository [address]Qvf: (330) Date:5504-53-50AQ [phone] () [address]AQ [place] [address]XY: 12/25/2017 Secondary NOT GIVENUNK [place] Insurance:SELF PAY [facility] Number: Effective Repository Date:2017-12-25 10/07/2017 KULWANT S Primary KULWANT S [place] [id number] Insurance:AETNA SUMMERSDOB: [facility] Number: [id number] [place] [id number] Repository [address]Ijo: (330) Date:3788-32-19YO [phone] (HP) [place], [place] [address]EC: 10/07/2017 Secondary NOT GIVENUNK [place] Insurance:SELF PAY [facility] Number: Effective Repository Date:2017-10-07 10/01/2017 KULWANT S Primary KULWANT S [place] [id number] Insurance:AETNA SUMMERSDOB: [facility] Number: [id number], [place] [id number] Repository [address]Mmv: (330) Date:5218-81-23OJ [phone] (HP) [id number] [place] [address]AD: 10/01/2017 Secondary NOT GIVENUNK [place] Insurance:SELF PAY [facility] Number: Effective Repository Date:2017-10-01 06/18/2017 KULWANT S Primary KULWANT S [place] [id number] Insurance:AETNA SUMMERSDOB: [facility] Number: [id number] [id number] Repository [address]Jhm: (330) Date:5791-18-47BB [phone] (HP) [id number] [place] [address]TM: 06/18/2017 Secondary NOT GIVENUNK Evelyn Insurance:SELF PAY [facility] Number: Effective Repository Date:2017-06-05 06/08/2017 KULWANT S Primary NOT GIVENUNK [place] [id number] Insurance:[facility] Number: [place], [place] Effective Repository [address]Yzu: (330) Date:8697-32-18UQ [phone] (HP) 656248MT [place] [address]DH: 06/08/2017 Secondary NOT GIVENUNK Evelyn Insurance:SELF PAY [facility] Number: Effective Repository Date:2017-06-08 06/06/2017 KULWANT S Primary KULWANT S [place] [id number] Insurance:AETNA SUMMERSDOB: [facility] Number: [id number] [id number] Repository [address]Tqp: (330) Date:5887-02-92GE [phone] (HP) 0819[address]NT [place] [address]ZW: 06/06/2017 Secondary NOT GIVENUNK Evelyn Insurance:SELF PAY [facility] Number: Effective Repository Date:2017-06-06 06/04/2017 KULWANT S Primary KULWANT S [place] [id number] Insurance:AETNA SUMMERSDOB: [facility] Number: [id number], [place] [id number] Repository [address]Cde: (330) Date:0899-49-29NF [phone] () [id number] [place] [address]NJ: 06/04/2017 Secondary NOT GIVENUNK [place] Insurance:SELF PAY [facility] Number: Effective Repository Date:2017-05-21 06/04/2017 KULWANT S Primary KULWANT S [place] [id number] Insurance:AETHUNG JARVISOB: [facility] Number: [id number], [place] [id number] Repository [address]Jrr: ([phone]) Date:2032-69-87EY [phone] () [address]GZ [place] [address]AX: 06/04/2017 Secondary NOT GIVENUNK [place] Insurance:SELF PAY [facility] Number: Effective Repository Date:2017-06-04
== END ==
PROVIDERS: Family Provider Family Medicine; PCP Family Medicine; Referring Provider Family Medicine; Visit Provider Family Medicine
DX: R10.9 Unspecified abdominal pain (principal); N28.89 Other specified disorders of kidney and ureter; R31.9 Hematuria, unspecified
CPT/HCPCS: 74176

== ENCOUNTER → 2018-07-13 13:33 | Outpatient (CLI) | payer MEDICARE, SELFPAY ==
[2017-10-07 11:48] VITALS: BMI 23.8
[2018-07-13 16:00] LABS: Absolute Lymphocyte Count 1.35 X10^3/ul (0.83-4.51); Absolute Neutrophil Count 4.2 X10^3/uL (2.0-7.7); Basophil# 0.03 X10^3/uL; Basophil% 0.5 % (0-1); Eosinophils% 1.6 % (0-5); Hematocrit 42.7 % (40-54); Hemoglobin 14.5 g/dl (13.0-16.5); Lymphocyte # 1.35 X10^3/ul (4.0); Lymphocyte % 21.5 % (19-41); Mean Corpuscular Hgb 31.5 pg (27.0-32.0); Mean Corpuscular Volume 92.8 fL (80-94); Mean Platelet Vol. 9.9 fl (6.2-12.0); Monocyte# 0.65 X10^3/uL; Monocyte% 10.3 % (0-10); Neutrophil # 4.15 X10^3/uL (2.7-7.7); Neutrophil % 65.9 % (47-70); Platelet Count 297 K/mm3 (150-450); RBC Distribution Width CV 12.3 % (11.6-14.6); RBC Distribution Width SD 41.3 fl (35.1-43.9); White Blood Count 6.3 K/mm3 (4.4-11.0)
[2018-07-13 16:04] LABS: POSITIVE COUNT NO; POSITIVE DIFFERENTIAL NO; POSITIVE MORPHOLOGY NO
[2018-07-13 16:06] LABS: Erythrocyte Sedimentation Rate 14 mm/hr (0-20)
[2018-07-13 16:29] LABS: Anion Gap 12 (5-15); BUN 26 mg/dL (7-18); BUN/Creat Ratio 21.8 RATIO (10-20); CRP 6.33 mg/L (0.0-3.0); Calcium,Total 8.9 mg/dL (8.5-10.1); Chloride 107 mmol/L (98-107); Creatinine, Serum 1.19 mg/dL (0.70-1.30); EST Glomerular Filtration Rate 63 mL/min (>60); Est Glom Filt Rate - Afr Amer 77 mL/min (>60); Glucose 86 mg/dL (74-106); Potassium 4.1 mmol/L (3.5-5.1); Sodium Level 142 mmol/L (136-145); T4 Free Direct 1.44 ng/dL (0.76-1.46); Thyroid Stim Hormone (TSH) 0.25 uIU/mL (0.358-3.74)
[2018-07-13 17:09] LABS: Vitamin D,25 Hydroxy 46.6 ng/mL (29.95-100.01)
[2018-07-15 16:03] LABS: ANTINUCLEAR ANTIBODIES DIRECT Positive (Negative); Anti-Centromere B Ab <0.2 AI (0.0-0.9); Anti-Chromatin <0.2 AI (0.0-0.9); Anti-Jo <0.2 AI (0.0-0.9); Anti-Scleroderma-70 AB 0.4 AI (0.0-0.9); RNP Ab <0.2 AI (0.0-0.9); SJOGREN'S Anti-SS-A test < 0.2 AI (0.0-0.9); SJOGREN'S Anti-SS-B test < 0.2 AI (0.0-0.9); Smith Ab <0.2 AI (0.0-0.9)
[2018-07-16 19:45] LABS: Anti-dsDNA Ab 56 IU/mL (0-9)
== END ==
PROVIDERS: Family Provider Family Medicine; PCP Family Medicine; Visit Provider Family Medicine
DX: R76.8 Other specified abnormal immunological findings in serum (principal); I10 Essential (primary) hypertension; E03.9 Hypothyroidism, unspecified; E55.9 Vitamin D deficiency, unspecified
CPT/HCPCS: 36415; 80048; 82306; 84439; 84443; 85025; 85652; 86038; 86140; 86225; 86235

== ENCOUNTER → 2019-03-09 10:07 | Outpatient (CLI) | payer MEDICARE, SELFPAY ==
[2019-01-12 13:51] VITALS: BMI 23.2
[2019-03-09 12:32] LABS: Absolute Lymphocyte Count 1.18 X10^3/uL (0.83-4.51); Absolute Neutrophil Count 3.1 X10^3/uL (2.0-7.7); Basophil# 0.04 X10^3/uL; Basophil% 0.8 % (0-1); Eosinophil# 0.09 X10^3/uL; Eosinophils% 1.8 % (0-5); Hematocrit 42.5 % (40-54); Hemoglobin 14.1 g/dL (13.0-16.5); Lymphocyte # 1.18 X10^3/ul (4.0); Mean Corp Hgb Conc 33.2 g/dL (32-36); Mean Corpuscular Hgb 30.9 pg (27.0-32.0); Mean Platelet Vol. 10.1 fl (6.2-12.0); Monocyte# 0.51 X10^3/uL; Monocyte% 10.4 % (0-10); NRBC Flagged by Analyzer 0 % (0-5); Neutrophil # 3.07 X10^3/uL (2.7-7.7); Neutrophil % 62.6 % (47-70); Platelet Count 259 K/mm3 (150-450); RBC Distribution Width CV 11.9 % (11.6-14.6); RBC Distribution Width SD 40.4 fl (35.1-43.9); Red Blood Count 4.57 M/mm3 (4.6-6.2); White Blood Count 4.9 K/mm3 (4.4-11.0)
[2019-03-09 12:57] LABS: ALB/GLOB Ratio 1.1 RATIO (0.9-2.4); AST(SGOT) 13 U/L (15-37); Alanine Aminotransfer ALT/SGPT 22 U/L (16-61); Albumin, Serum 3.7 g/dL (3.2-5.0); Alkaline Phosphatase 67 U/L (45-117); Anion Gap 10 (5-15); BUN 19 mg/dL (7-18); BUN/Creat Ratio 15.1 RATIO (10-20); Calcium,Total 8.5 mg/dL (8.5-10.1); Chloride 107 mmol/L (98-107); Creatinine, Serum 1.26 mg/dL (0.70-1.30); EST Glomerular Filtration Rate 59 mL/min (>60); Est Glom Filt Rate - Afr Amer 72 mL/min (>60); Globulin 3.5 g/dL (2.2-4.2); Glucose 87 mg/dL (74-106); Potassium 4.3 mmol/L (3.5-5.1); Protein, Total 7.2 g/dL (6.4-8.2); Sodium Level 144 mmol/L (136-145); Thyroid Stim Hormone (TSH) 0.12 uIU/mL (0.358-3.74)
[2019-03-09 12:58] LABS: Vitamin D,25 Hydroxy 57.7 ng/mL (29.95-100.01)
== END ==
PROVIDERS: Family Provider Family Medicine; PCP Family Medicine; Visit Provider Family Medicine
DX: M32.9 Systemic lupus erythematosus, unspecified (principal); E55.9 Vitamin D deficiency, unspecified; E03.9 Hypothyroidism, unspecified
CPT/HCPCS: 36415; 80053; 82306; 84439; 84443; 85025

== ENCOUNTER → 2019-04-20 10:07 | Outpatient (CLI) | payer MEDICARE, SELFPAY ==
[2019-01-12 13:51] VITALS: BMI 23.2
[2019-04-20 13:06] LABS: Thyroid Stim Hormone (TSH) 1.29 uIU/mL (0.358-3.74)
== END ==
PROVIDERS: Family Provider Family Medicine; PCP Family Medicine; Visit Provider Family Medicine
DX: E03.9 Hypothyroidism, unspecified (principal)
CPT/HCPCS: 36415; 84443

== ENCOUNTER 2019-11-23 09:30 | Outpatient (RCR) | payer MEDICARE, SELFPAY ==
[2019-09-22 14:02] VITALS: BMI 23.2
--- NOTE | 2019-11-09 09:44 | HP.PTEVAL_ITS ---
Patient's Visit Information KULWANT ANDRADE is a 79 year old M referred to Physical Therapy by Dr. 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 Date of Evaluation: 11/09/19 Physical Therapist: Lm Peters, DPT, OCS, CSCS - Visit Plan Frequency: Every Other Week Duration: 4 Weeks Plan: Per doctor order, 3 visits as needed to progress HEP. Gave LE rot in NWb today with pelvic tilt, prone prop and HS/quad strap stretches for 2x/daily. Next session progress to core strength in supine and prone to tolerance and increase education on NS position, LLA with rotation stretch - Subjective [address] Coronel in [place] fused L45. Had some back pain over the last year where he could only stand for 3-4 hours before pain. Heat helps. Back hurts if he is up 3 hours it gets worse but can sit down and get good relief. Was on prednisone for about a week and it helped a little bit. Pain is in LB and up into thoracic. Gets up to 8/10 and just feels tight at rest. Sleeps well. Not employed , retired from [employer]. Activitiy at home is limited wroking on [employer] cars and working in yard and has to do it a couple hours at a time. Riding in car is not a problem. Basic ADLs are OK. - Pain LBP Pain Intensity (Out of 10): 1 Pain Intensity Range: 0, 7 Comment: stiff currently - Objective Walks slightly hunched over with very little spinal movement appearing stiff in spine but I. Trasnfers I without UE, steps reciprocal without rail today slowly. LB AROM ext almost nil with ightness, flexion very limited segmentally in L/S, feels stiff, B SB max deficits with ipsilateral stiffness. HS and quads max tight with -35 90/90 measurement in B HS. Otherwise LE AROM WFL, weakness in hip ext ad abd B at 3+, otherwise 4/5 without pain. reflexes 2/3 in patella and achilles. Sensation to gross light touch WNL in LE - Balance Scores Functional Gait Assessment Score: 27 % Disability: 10.0000 - Goals Goal 1:: Pt I with appropriate HEP for LB ROM, core strength adn LE stretching. Goal Time Frame: 2-4 Weeks Goal 2:: Pt feel 50% better in overall pain levesl to 3/10 at worst Goal Time Frame: 4-6 Weeks Goal 3:: Patient stay on feet for 3 hours without increased pain. Goal Time Frame: 4-6 Weeks Goal 4:: <20% disability on oswestry Goal Time Frame: 4-6 Weeks - Rehabilitation Potential Physical Therapy Diagnosis: Degenerative changes in LB leading to stiffness and pain with limited mobility. Rehabilitation Potential: Fair - Anticipated Interventions Patient/Client Instruction: Educate patient on: Condition, Plan of Care For the Purpose of:: To decrease pain, To increase tolerance to activity/condition/position Therapeutic Exercise to Include: Strength training, Postural training, Flexibilty training, Passive ROM, Active ROM, Dynamic Lumbar Stabilization For the Purpose of:: To decrease pain, To increase tolerance to activity/condition/position, To improve ability of physical actions for home/community/work/leisure Thank you for the opportunity to evaluate your patient. For Medicare and Medicare HMO plans, please review the plan of care and approve it. It will need to be FAXED BACK to us at [phone] for Medicare purposes. For Medicare only, by signing this I certify the plan of care. Please let me know if there are questions or concerns regarding this plan of care. Physician Signature: Date:
--- NOTE | 2020-01-31 16:35 | HP.PT.NRP ---
KULWANT ANDRADE was seen in my office for initial evaluation on 11/09/19. The following Plan of Care was established for this patient: Initial Frequency: Every Other Week Initial Duration: 4 Weeks Patient/Client Instruction: Educate patient on: Condition, Plan of Care For the Purpose of:: To decrease pain, To increase tolerance to activity/condition/position Therapeutic Exercise to Include: Strength training, Postural training, Flexibilty training, Passive ROM, Active ROM, Dynamic Lumbar Stabilization For the Purpose of:: To decrease pain, To increase tolerance to activity/condition/position, To improve ability of physical actions for home/community/work/leisure This patient was last seen in our office 11/23/19. Pertinent comments regarding their Physical therapy will appear below: Pt seen two visits of POC and neglected to schedule or attend any further visits. At this point it has been over two months and I will disocntinue due to nonattendance. At this point I will be discontinuing this patient from physical therapy. I would be happy to see this patient again in the future if found appropriate by the physician. Thank you! Lm Peters, DPT, OCS, CSCS
== END 2019-11-23 19:00 | disposition home or self-care (01) ==
LOC: PT 09:30
PROVIDERS: PCP Family Medicine; Referring Provider Orthopaedic Surgery Orthopaedic Surgery of the Spine; Visit Provider Orthopaedic Surgery Orthopaedic Surgery of the Spine
DX: M51.36 Other intervertebral disc degeneration, lumbar region (principal); M47.814 Spondylosis without myelopathy or radiculopathy, thoracic region; Z98.1 Arthrodesis status
CPT/HCPCS: 97110; 97162

== ENCOUNTER → 2019-12-12 08:48 | Outpatient (CLI) | payer MEDICARE, SELFPAY ==
[2019-09-22 14:02] VITALS: BMI 23.2
--- NOTE | 2019-12-12 09:01 | MRI_ITS ---
STUDY: MRI LUMBAR SPINE WITHOUT CONTRAST REASON FOR EXAM: Male, 79 years old. Ddd, fusion L4-S1 -- prev surg 2000, pain low back TECHNIQUE: Standardized fat and water weighted pulse sequences were obtained in the sagittal and axial planes. COMPARISON: CT abdomen and pelvis without contrast 04/28/2018. FINDINGS: T10-T11: (Sagittal only). Normal T10 inferior endplate. Mild anterior wedging of T11 superior endplate is old and unchanged. Mild disc space height narrowing. Small posterior bulging disc. Normal central canal and bilateral intervertebral neural foramina. T11-T12: (Sagittal only). Normal T11 inferior endplate. Old anterior wedging of the upper T12 vertebral body with prominent central Schmorl''s node. These are unchanged. Increased disc space height due to old upper T12 compression fracture. Normal central canal and bilateral intervertebral neural foramina. T12-L1: (Sagittal only). Normal endplates. Normal disc height with mild loss of disc hydration. Normal central canal and bilateral intervertebral neural foramina. Normal lumbar lordosis. 4 lumbar type vertebral bodies due to partial sacralization of L5. There is no substantial scoliosis. Normal conus medullaris that terminates at the upper L1 vertebral body level. L1-2: (Sagittal only). Normal endplates. Normal disc height. Minimal degenerative retrolisthesis of L1 on L2. Prominent posterior bulging disc. Normal central canal and bilateral lateral recesses. Mild degenerative facet arthropathy. Normal bilateral intervertebral neural foramina. L2-3: Suboptimal visualization due to signal distortion coming from pedicular screws and rods. L3-4: Suboptimal visualization due to signal distortion artifacts coming from pedicular screws and rods. L4-5: Suboptimal visualization due to signal distortion coming from pedicular screws and rods. L5-S1: Normal endplates. Hypoplastic disc due to sacralization of L5. Normal central canal and bilateral lateral recesses. Hypoplastic facet joints. Signal distortion of the bilateral intervertebral neural foramina. Normal visualized sacral ala. Normal visualized paraspinous soft tissue structures. MRI/Spine Lumbar (Routine) IMPRESSION: 1. Limited study due to pedicular screws and rods causing signal distortion of the central canal, bilateral lateral recesses, facet joints and bilateral intervertebral neural foramina at L2-L3 down to L5-S1 disc space levels. 2. Sacralization of L5 accounting for 4 lumbar type vertebral bodies. 3. Minimal degenerative retrolisthesis of L1 on L2 with prominent posterior bulging disc and mild bilateral L1-L2 degenerative facet arthropathy. 4. Old anterior wedge compression fractures involving T11 and T12 vertebral bodies are unchanged. 5. No MRI evidence of suspicious lumbar extruded disc fragment at L1-L2 and above. Electronically Signed: Esvin Wells MD at 11:00 EDT , Service support ,
[2019-12-12 09:22] LABS: BUN 39 mg/dL (7-18); Creatinine, Serum 1.57 mg/dL (0.70-1.30); EST Glomerular Filtration Rate 46 mL/min (>60); Est Glom Filt Rate - Afr Amer 55 mL/min (>60)
== END ==
PROVIDERS: PCP Family Medicine; Referring Provider Orthopaedic Surgery Orthopaedic Surgery of the Spine; Visit Provider Orthopaedic Surgery Orthopaedic Surgery of the Spine
DX: M51.36 Other intervertebral disc degeneration, lumbar region (principal); Z98.1 Arthrodesis status
CPT/HCPCS: 36415; 72148; 82565; 84520

== ENCOUNTER → 2020-03-12 15:36 | Outpatient (CLI) | payer MEDICARE, SELFPAY ==
[2019-09-22 14:02] VITALS: BMI 23.2
[2020-03-12 16:46] LABS: Absolute Lymphocyte Count 1.26 X10^3/uL (0.83-4.51); Absolute Neutrophil Count 5.5 X10^3/uL (2.0-7.7); Basophil# 0.03 X10^3/uL; Basophil% 0.4 % (0-1); Eosinophil# 0.06 X10^3/uL; Eosinophils% 0.8 % (0-5); Hematocrit 38.4 % (40-54); Hemoglobin 12.2 g/dL (13.0-16.5); Lymphocyte # 1.26 X10^3/ul (4.0); Lymphocyte % 16.9 % (19-41); Mean Corp Hgb Conc 31.8 g/dL (32-36); Mean Corpuscular Hgb 30.7 pg (27.0-32.0); Mean Corpuscular Volume 96.7 fL (80-94); Mean Platelet Vol. 9.8 fl (6.2-12.0); Monocyte# 0.58 X10^3/uL; Monocyte% 7.8 % (0-10); NRBC Flagged by Analyzer 0 % (0-5); Neutrophil # 5.49 X10^3/uL (2.7-7.7); Neutrophil % 73.7 % (47-70); Platelet Count 278 K/mm3 (150-450); RBC Distribution Width CV 11.5 % (11.6-14.6); RBC Distribution Width SD 40.9 fl (35.1-43.9); Red Blood Count 3.97 M/mm3 (4.6-6.2); White Blood Count 7.5 K/mm3 (4.4-11.0)
[2020-03-12 17:03] LABS: Anion Gap 3 (5-15); BUN 33 mg/dL (7-18); BUN/Creat Ratio 23.6 RATIO (10-20); Calcium,Total 8.4 mg/dL (8.5-10.1); Chloride 112 mmol/L (98-107); EST Glomerular Filtration Rate 52 mL/min (>60); Est Glom Filt Rate - Afr Amer 63 mL/min (>60); Glucose 121 mg/dL (74-106); Potassium 4.4 mmol/L (3.5-5.1); Sodium Level 143 mmol/L (136-145); T4 Free Direct 1.27 ng/dL (0.76-1.46); Thyroid Stim Hormone (TSH) 0.23 uIU/mL (0.358-3.74)
[2020-03-13 12:04] LABS: Ferritin 218 ng/mL (26-388); Iron 68 ug/dL (65-175)
== END ==
PROVIDERS: PCP Family Medicine; Visit Provider Family Medicine
DX: E03.9 Hypothyroidism, unspecified (principal); N18.30 Chronic kidney disease, stage 3 unspecified; D64.9 Anemia, unspecified
CPT/HCPCS: 36415; 80048; 82728; 83540; 84439; 84443; 85025

== ENCOUNTER → 2020-04-10 10:56 | Outpatient (CLI) | payer MEDICARE, SELFPAY ==
[2019-09-22 14:02] VITALS: BMI 23.2
[2020-04-10 13:34] LABS: Thyroid Stim Hormone (TSH) 1.12 uIU/mL (0.358-3.74)
== END ==
PROVIDERS: PCP Family Medicine; Visit Provider Family Medicine
DX: E03.9 Hypothyroidism, unspecified (principal)
CPT/HCPCS: 36415; 84443

== ENCOUNTER 2020-07-30 07:44 | Outpatient (RCR) | payer MEDICARE, SELFPAY ==
[2020-06-04 15:26] VITALS: BMI 23.2
== END 2020-07-30 23:59 ==
LOC: IMMUN 07:44
PROVIDERS: PCP Family Medicine; Visit Provider Family Medicine
DX: Z23 Encounter for immunization (principal)
CPT/HCPCS: 0011A

== ENCOUNTER → 2020-08-21 11:58 | Outpatient (CLI) | payer MEDICARE, SELFPAY ==
[2020-06-04 15:26] VITALS: BMI 23.2
[2020-08-21 12:39] LABS: Erythrocyte Sedimentation Rate 7 mm/hr (0-20)
[2020-08-21 12:41] LABS: Absolute Lymphocyte Count 1.27 X10^3/uL (0.83-4.51); Absolute Neutrophil Count 4.3 X10^3/uL (2.0-7.7); Basophil# 0.04 X10^3/uL; Basophil% 0.6 % (0-1); Eosinophil# 0.08 X10^3/uL; Eosinophils% 1.3 % (0-5); Hematocrit 44.6 % (40-54); Hemoglobin 14.7 g/dL (13.0-16.5); Lymphocyte # 1.27 X10^3/ul (4.0); Lymphocyte % 20.2 % (19-41); Mean Corpuscular Hgb 30.9 pg (27.0-32.0); Mean Corpuscular Volume 93.7 fL (80-94); Mean Platelet Vol. 9.6 fl (6.2-12.0); Monocyte# 0.57 X10^3/uL; Monocyte% 9.1 % (0-10); NRBC Flagged by Analyzer 0 % (0-5); Neutrophil # 4.29 X10^3/uL (2.7-7.7); Neutrophil % 68.3 % (47-70); Platelet Count 289 K/mm3 (150-450); RBC Distribution Width CV 12.1 % (11.6-14.6); Red Blood Count 4.76 M/mm3 (4.6-6.2); White Blood Count 6.3 K/mm3 (4.4-11.0)
[2020-08-21 13:09] LABS: Vitamin D,25 Hydroxy 64.9 ng/mL
[2020-08-21 13:19] LABS: ALB/GLOB Ratio 1.1 RATIO (0.9-2.4); AST(SGOT) 10 U/L (15-37); Alanine Aminotransfer ALT/SGPT 18 U/L (16-61); Albumin, Serum 4.1 g/dL (3.2-5.0); Alkaline Phosphatase 60 U/L (45-117); Anion Gap 6 (5-15); BUN 32 mg/dL (7-18); BUN/Creat Ratio 21.6 RATIO (10-20); CRP < 2.90 mg/L (0.0-3.0); Calcium,Total 9.2 mg/dL (8.5-10.1); Chloride 110 mmol/L (98-107); Creatinine, Serum 1.48 mg/dL (0.70-1.30); EST Glomerular Filtration Rate 49 mL/min (>60); Est Glom Filt Rate - Afr Amer 59 mL/min (>60); Globulin 3.6 g/dL (2.2-4.2); Glucose 101 mg/dL (74-106); Potassium 4.5 mmol/L (3.5-5.1); Protein, Total 7.7 g/dL (6.4-8.2); Sodium Level 142 mmol/L (136-145)
== END ==
PROVIDERS: PCP Family Medicine; Referring Provider Family Medicine; Visit Provider Family Medicine
DX: I49.9 Cardiac arrhythmia, unspecified (principal); M06.4 Inflammatory polyarthropathy; R76.8 Other specified abnormal immunological findings in serum; E55.9 Vitamin D deficiency, unspecified; D63.8 Anemia in other chronic diseases classified elsewhere
CPT/HCPCS: 36415; 80053; 82306; 84443; 85025; 85652; 86038; 86140

== ENCOUNTER → 2020-10-31 15:04 | Outpatient (CLI) | payer MEDICARE, SELFPAY ==
[2020-10-31 14:10] VITALS: BMI 23.7
--- NOTE | 2020-10-31 15:10 | RAD_ITS ---
STUDY: X-RAY CHEST REASON FOR EXAM: Male, 80 years old. CARDIOMYOPATHY TECHNIQUE: PA and lateral views of the chest. COMPARISON: 04/15/2017 FINDINGS: The lungs are clear and expanded. There is no demonstrated pleural abnormality. Normal size heart. Normal mediastinum and param. Normal visualized pulmonary arteries. Normal visualized aortic arch and descending thoracic aorta. Normal visualized thoracic spine. Normal visualized ribs, clavicles, and shoulders. There is no demonstrated abnormality of the visualized soft tissue structures of the upper abdomen. RAD/Chest PA and Lateral IMPRESSION: Normal x-ray examination of the chest. Electronically Signed: Jose Cox MD at 15:35 EDT Tel , Service support ,
[2020-10-31 16:29] LABS: D-Dimer Quantitative (DVT/PE) 0.84 FEU/ug/m (0.27-0.49)
== END ==
PROVIDERS: PCP Family Medicine; Referring Provider Internal Medicine Cardiovascular Disease; Visit Provider Internal Medicine Cardiovascular Disease
DX: R60.0 Localized edema (principal); R06.00 Dyspnea, unspecified; I10 Essential (primary) hypertension; I49.3 Ventricular premature depolarization; I43 Cardiomyopathy in diseases classified elsewhere; E78.5 Hyperlipidemia, unspecified; I49.1 Atrial premature depolarization
CPT/HCPCS: 36415; 71046; 85379

== ENCOUNTER → 2020-11-01 13:38 | Outpatient (CLI) | payer MEDICARE, SELFPAY ==
[2020-10-31 14:10] VITALS: BMI 23.7
--- NOTE | 2020-11-01 14:05 | CT_ITS ---
STUDY: CTA CHEST REASON FOR EXAM: Male, 80 years old. Dyspnea on exertion RADIATION DOSAGE (If Supplied By Facility): CTDIvol = ( 9.89 ) mGy, DLP = ( 361.25 ) mGycm TECHNIQUE: The examination was performed with the intravenous administration of IV 100mL Isovue-370. Post-processing of the angiographic images was performed, with multiplanar reformation and 3D reconstruction. Individualized dose optimization techniques were used for this CT. COMPARISON: X-ray 10/31/2020, CT 06/07/2016 and correlation with PET CT scan is recommended. Follow-up CT the chest is recommended in 6 months document stability. FINDINGS: Normal enhancement of the main pulmonary artery and right and left pulmonary arteries. Normal enhancement of the bilateral peripheral pulmonary arteries. There is no demonstrated pulmonary embolism. Normal thoracic aorta and visualized great vessels. There is no demonstrated aortic dissection. Normal heart and pericardium. Normal mediastinum. Normal hilar regions. Normal visualized trachea and bronchi. The lungs are well expanded. 1 cm noncalcified subpleural nodule left lower lobe the lungs on image 1:30 Normal pleura. Normal chest wall structures. Normal osseous structures. 4.5 cm cyst in the upper pole the left kidney. CT/CTA Chest W/WO Contrast IMPRESSION: 1. No CT evidence of pulmonary embolism. 2. 1 cm noncalcified subpleural left lower lobe nodule and correlation with PET CT scan is recommended. Follow-up CT is recommended in 6 months document stability. Electronically Signed: Jose Cox MD at 15:21 EDT Tel , Service support ,
--- NOTE | 2020-11-01 14:17 | VDLE_ITS ---
Reason For Study: left leg edema, elevated D-Dimer Procedure LEFT Exam performed in department. GSV is normal. The exam was abbreviated due to the COVID 19 CFV is compressible, spontaneous, phasic, protocol. competent, and demonstrates normal The exam was diagnostic. augmentation. A preliminary report was called and/or faxed FV is compressible, spontaneous, phasic, to [facility]. competent and demonstrates normal augmentation. POP V is compressible, spontaneous, phasic, competent and demonstrates normal augmentation. T/P Trunk is compressible. PTV is compressible. LT PerV is compressible. Hypoechoic area behind the knee measuring 1.53 x 2.8 x 4.58 cm. Area is nonvascular. VL/Venous Duplex US, Unilateral Interpretation Summary There is no evidence of left lower extremity deep vein thrombosis. Left great s aphenous vein appears patent and compressible segmentally. Left popliteal space nonvascular cystic st ructure measuring 1.53 x 2.8 x 4.58 cm consistent with a Freeman's cyst. Clinical correlation would be appropriate. Abbreviated COVID-19 protocol utilized Ordering Physician: Geovanny Michelle Performed By: Simon Cole RVT and Student
[2020-11-01 16:03] LABS: CREATININE FINGERSTICK 1.4 mg/dL (0.70-1.30)
== END ==
PROVIDERS: PCP Family Medicine; Referring Provider Internal Medicine Cardiovascular Disease; Visit Provider Internal Medicine Cardiovascular Disease
DX: R06.00 Dyspnea, unspecified (principal); R79.89 Other specified abnormal findings of blood chemistry; R60.0 Localized edema
CPT/HCPCS: 71275; 93971; Q9967; A4216

== ENCOUNTER → 2020-11-08 07:02 | Outpatient (CLI) | payer MEDICARE, SELFPAY ==
[2020-10-31 14:10] VITALS: BMI 23.7
[2020-11-07 06:26] VITALS: BMI 23.7
--- NOTE | 2020-11-08 07:07 | ECHOD_ITS ---
Reason For Study: PREMATURE ATRIAL CONTRACTIONS, HTN Procedure This was a 2D Doppler, Color Flow transthoracic echocardiogram. The exam was of adequate technical quality. Exam performed in department. Left Ventricle Normal LV size. Left ventricular systolic function is normal. The estimated ejection fraction is 65 %. No evidence for diastolic dysfunction. No regional wall motion abnormalities noted. Right Ventricle Normal RV size. Normal systolic function. Atria The left atrium is mildly enlarged. Normal right atrium. No doppler evidence for ASD. Mitral Valve There is mild mitral annular calcification. Normal mitral valve. Trivial mitral valve insufficiency. Tricuspid Valve Normal tricuspid valve. Trivial tricuspid valve insufficiency. Right ventricular systolic pressure estimated to be 34 mmHg. Aortic Valve Trisinus/trileaflet aortic valve. Normal aortic valve. Pulmonic Valve The pulmonic valve is not well visualized. Trivial pulmonic valve insufficiency. Great Vessels Normal sized aortic root. Pericardium/Pleural No pericardial effusion. MMode/2D Measurements & Calculations LVIDd: 4.6 cm IVSd: 0.87 cm Ao root diam: 3.3 cm LVIDs: 2.8 cm LVPWd: 0.92 cm RVDd: 3.6 cm FS: 39.2 % LAV(MOD-bp): 65.7 ml LVAd ap4: 30.3 cm2 SV(MOD-sp4): 56.5 ml LAV(MOD-bp) Indexed: 31.9 ml/m2 LVLd ap4: 8.4 cm LAV(MOD-sp2): 70.0 ml EDV(MOD-sp4): 86.7 ml LAV(MOD-sp4): 59.5 ml EDV(sp4-el): 92.6 ml LVAs ap4: 15.5 cm2 LVLs ap4: 7.0 cm ESV(MOD-sp4): 30.2 ml ESV(sp4-el): 29.3 ml EF(MOD-sp4): 65.2 % EF(sp4-el): 68.4 % SV(sp4-el): 63.4 ml LA A4 area: 21.4 cm2 LA dimension(2D): 4.1 cm RA A4 area: 20.8 cm2 Time Measurements MV dec time: 0.29 sec Doppler Measurements & Calculations MV E max orestes: 90.7 cm/sec Lat Peak E' Orestes: 11.1 cm/sec Med Peak E' Orestes: 8.8 cm/sec MV A max orestes: 93.7 cm/sec E/E' lat: 8.2 E/E' med: 10.3 MV E/A: 0.97 Ao V2 max: 156.0 cm/sec LV V1 max: 113.9 cm/sec PA V2 max: 115.6 cm/sec Ao max P.7 mmHg LV V1 max P.2 mmHg TR max orestes: 277.6 cm/sec TR max P.8 mmHg ECHO/Echo Complete Interpretation Summary Left ventricular systolic function is normal. The estimated ejection fraction is 65 %. The left atrium is mildly enlarged. There is mild mitral annular calcification. Trivial mitral valve insufficiency. Trivial tricuspid valve insufficiency. Trivial pulmonic valve insufficiency. Right ventricular systolic pressure estimated to be 34 mmHg. No evidence for diastolic dysfunction. Ordering Physician: Geovanny Michelle Referring Physician: AJITH BATES Performed By: Maria Ines Vega RDCS
--- NOTE | 2020-11-08 09:50 | STRESSREP ---
Stress Test Report Date: 11-09-2019 Procedure: Pharmacologic stress nuclear imaging study Indications: Shortness of breath/dyspnea on exertion; fatigue; cardiac ectopy Consent: Per the patient Procedure: The patient underwent pharmacologic (Regadenoson 0.4mg ) evaluation with a peak heart rate of 103 beats per minute (72%predicted maximal heart rate) and a peak blood pressure of 122/72 mmHg. The baseline ECG demonstrated sinus rhythm. The peak pharmacologic ECG demonstrated no obvious ECG changes. There was an occasional PVC during recovery. There was no complaint of chest discomfort during pharmacologic infusion or recovery. The examination was discontinued secondary to completion of protocol. Impression: 1. Pharmacologic (Regadenoson) evaluation 2. Peak pharmacologic ECG with no obvious ECG changes. 3. There was an occasional PVC during recovery. 4. Nuclear images pending Myocardial perfusion imaging study: Technique: The patient was injected with 14.6 millicuries of technetium 99m Cardiolite and subsequently rest SPECT Cardiolite nuclear imaging was obtained in the horizontal long, vertical long, and short axis views. The patient underwent pharmacologic (Regadenoson) evaluation with a peak heart rate of 103 beats per minute (72% percent predicted maximal heart rate) and a peak blood pressure of 122/72 mmHg. The patient was injected with 44.1 millicuries of technetium 99m Cardiolite and subsequently stress SPECT Cardiolite nuclear imaging was obtained in the horizontal long, vertical long, and short axis views. A gated Cardiolite study at peak stress was obtained. Interpretation: Rest and stress SPECT Cardiolite nuclear imaging status post realignment, normalization, and attenuation correction demonstrate the appearance of body motion during image acquisition. At rest there appears to be relative uniform tracer uptake and myocardial perfusion appearing within normal limits. Status post stress there is notation of diminished myocardial perfusion/tracer uptake in the distal inferolateral lateral apical segments. There are similar type findings on the stress polar map images.. There is end systolic thickening and brightening. The gated Cardiolite study demonstrates myocardial thickening and inward wall motion. The reported LVEF is 83%. Impression: 1. Rest and stress SPECT cardiac nuclear imaging demonstrate an element of body motion during image acquisition as well as post stress an element of diminished myocardial perfusion/tracer uptake in portions of the distal inferolateral/lateral apical segments concerning for stress-induced myocardial ischemia, however, based upon the body motion during image acquisition an element of shifting soft tissue attenuation/artifact cannot necessarily be excluded. 2. The gated Cardiolite study reports an LVEF of 83%. This note was generated with [employer] software. It may contain incorrect words, spelling, and punctuation that were not noted in checking the note before signing.
== END ==
PROVIDERS: PCP Family Medicine; Referring Provider Internal Medicine Cardiovascular Disease; Visit Provider Internal Medicine Cardiovascular Disease
DX: Z01.812 Encounter for preprocedural laboratory examination (principal); R06.00 Dyspnea, unspecified; I43 Cardiomyopathy in diseases classified elsewhere; R60.0 Localized edema; I10 Essential (primary) hypertension; I49.3 Ventricular premature depolarization; I49.1 Atrial premature depolarization; E78.5 Hyperlipidemia, unspecified
CPT/HCPCS: 78452; 93017; 93306; A9500; A4216; J2785

== ENCOUNTER 2020-11-25 08:17 | Inpatient (IN) | payer MEDICARE, SELFPAY ==
[2020-11-07 06:26] VITALS: BMI 23.7
[2020-11-25] VITALS (8 sets, daily range): BP systolic 104–135; BP diastolic 63–74; PULSE 89–140; RESP 16–28; TEMP 36.4–37.2; O2SAT 91–96; BMI 23.7; BMI 24.0
--- NOTE | 2020-11-25 08:34 | EKG12_ITS ---
Test Reason : LOWER EXTREMITY PAIN Blood Pressure : / mmHG Vent. Rate : 132 BPM Atrial Rate : 132 BPM P-R Int : 150 ms QRS Dur : 070 ms QT Int : 266 ms P-R-T Axes : 027 -23 021 degrees QTc Int : 394 ms Sinus tachycardia Low voltage QRS Inferior infarct , age undetermined Cannot rule out Anterior infarct , age undetermined Abnormal ECG Confirmed by NETO BHATT, WILDA ([id number]), research editor WAQAS SANCHEZ ([id number]) on 11/27/2020 8:59:35 AM Referred By: OLAYINKA Confirmed By:WILDA DUQUE MD
--- NOTE | 2020-11-25 08:35 | EX.ED.DYSGE1 ---
HPI History of Present Illness Chief Complaint: Lower Extremity Injury Detail of Chief Complaint: Bilateral hip and knee pain as well as shortness of breath Informant: patient Narrative Narrative: Patient presents to the emergency department complaining of shortness of breath for about 2 months. Patient states that after he received his first mold during Covid vaccine that he developed pain in his joints as far as his hips and his knees. Patient was seen by his primary care physician and apparently had some testing and was told he might have lupus and was started on prednisone. Patient complaining of exertional dyspnea. He is scheduled to have a heart catheterization with his pediatric speech language pathologist in about 2 weeks. Patient denies any chest pain. He denies racing heart or palpitations. Patient tells me that years ago he had a history of near syncope and had an ablation and he has been fine since but cannot tell me what the abnormal heart rhythm was. Patient denies fever or cough. 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 Bigeminy Blood in stool BPH (benign prostatic hyperplasia) Cardiomyopathy in other diseases classified elsewhere D-dimer, elevated DDD (degenerative disc disease) Dyspnea on exertion Edema Essential hypertension Fibromyalgia Hemorrhoid HTN (hypertension) Hyperlipidemia Hypothyroid Nasal sinus polyp Premature atrial contractions Premature ventricular contraction Pulmonary nodule Syncope White coat syndrome with hypertension Home Medications amlodipine 10 mg PO DAILY 04/15/17 [History Last Taken 06/04/17 07:00] lisinopril 20 mg PO DAILY 04/15/17 [History Last Taken 06/04/17 07:00] omeprazole 10 mg PO DAILY 04/15/17 [History Last Taken 06/04/17 07:00] cholecalciferol (vitamin D3) 125 mcg (5,000 unit) tablet 5,000 unit PO DAILY 07/21/18 [History Last Taken Unknown] levothyroxine 88 mcg tablet 75 mcg PO DAILY 09/22/19 [History Last Taken Unknown] spironolactone 25 mg tablet 25 mg PO DAILY #90 tab 01/02/20 [Rx Last Taken Unknown] diphenhydramine 25 mg-acetaminophen 500 mg tablet 1 tab PO QHS PRN 10/31/20 [History Last Taken Unknown] prednisone 20 mg tablet 60 mg PO DAILY tab 10/31/20 [History Last Taken Unknown] aspirin 81 mg tablet,delayed release 81 mg PO DAILY 11/09/20 [History Last Taken Unknown] Allergy/AdvReac Type Severity Reaction Status Date / Time erythromycin base Allergy Hives Verified 11/25/20 08:22 amoxicillin [From Augmentin] AdvReac Severe Itching Verified 11/25/20 08:22 atorvastatin AdvReac Severe myalgias Verified 11/25/20 08:22 clavulanic acid AdvReac Severe Itching Verified 11/25/20 08:22 [From Augmentin] fenofibrate [From Tricor] AdvReac Severe myalgias Verified 11/25/20 08:22 levofloxacin [From Levaquin] AdvReac Unknown Unknown Verified 11/25/20 08:22 Family History Father CVA (cerebral vascular accident) Hypertension Heart disease Mother CAD (coronary artery disease) Brother Hypertension Brother CAD (coronary artery disease) Hypertension Sister Hypertension Sister Patent foramen ovale Sister Hypertension Lung cancer Surgical History H/O hemorrhoidectomy History of back surgery History of cholecystectomy History of kidney surgery History of radiofrequency ablation procedure for cardiac arrhythmia (~10/2002) Hx of appendectomy Social History Smoking Status: Never smoker alcohol intake: never substance use type: does not use ROS ROS ED Constitutional Constitutional ED: Reports systems reviewed and no addt'l complaints, except as documented; Denies body ache(s), change in weight or chills Eyes Eyes: Denies acute decrease in peripheral vision, change in vision, double vision or loss of vision ENT ENT ED: Reports none; Denies ear pain, lip swelling, loss taste/smell, neck pain, otalgia or sore throat Cardiovascular Cardiovascular: Reports none; Denies abdominal pain, chest pain with activity, leg edema, lightheadedness, palpitations, rapid heart rate or syncope Respiratory/Chest Respiratory/Chest: Reports none, dyspnea and shortness of breath with exertion; Denies change in mental status, dry cough, hemoptysis or shortness of breath at rest Gastrointestinal Gastrointestinal: Reports none; Denies abdominal pain, change in stool character, diarrhea, hematemesis, hematochezia, melena, rectal bleeding or vomiting Genitourinary Genitourinary ED: Reports none; Denies abdominal discomfort, anuria, dysuria, genital pain or polyuria Musculoskeletal Musculoskeletal: Reports none and joint pain; Denies arthralgias, back pain, difficulty walking, extremity pain, muscle weakness or myalgias Integumentary Reports none; Denies abscess or rash Neurologic Neurologic: Reports none; Denies abnormal gait, confusion, focal weakness, frequent falls, headache(s), loss of vision, numbness, paresthesias, radicular pain, vertigo or weakness Psychiatric Psychiatric: Reports systems reviewed and no addt'l complaints, except as documented and none; Denies behavioral changes, confusion, difficulty concentrating, hallucinations, suicidal ideation, tactile hallucinations or visual hallucinations Endocrine Endocrinology: Denies none, cold intolerance, excessive sweating, fatigue or heat intolerance Hematologic/Lymphatic Hematologic/Lymphatic: Reports none; Denies anemia, easy bleeding or easy bruising Allergic/Immunologic Allergic/Immunologic ED: Denies as per HPI, none, lip swelling, mouth swelling, throat swelling, tongue swelling or hives EXAM Physical Exam Const Vital Signs: 11/25/20 08:18 11/25/20 08:58 Temperature 98.5 F 97.6 F L Temperature Source Oral Temporal Pulse Rate 140 H 121 H Respiratory Rate 28 H 27 H Blood Pressure 135/73 H 119/74 Blood Pressure Mean 93 89 Pulse Ox 91 92 Oxygen Delivery Method Room Air Nasal Cannula Oxygen Flow Rate (L/min) 2 Positive well nourished and well developed General Appearance ED: well developed and NAD HEENT Reports TM's clear and moist mucous membranes normocephalic and atraumatic; Negative for trauma or tenderness Tympanic Membrane ED: Yes TM's clear Eyes PERRL and EOMs intact bilaterally General Eye ED: Negative for pale conjunctiva or scleral icterus Neck no lymphadenopathy, supple and no JVD General: Negative for tenderness Chest Wall inspection of chest normal and palpation of chest normal Chest: Negative for tenderness Resp clear to auscultation bilaterally Resp Narrative: Patient tachypneic with no sensory muscle use noted. No rales or wheezes noted. Effort and Inspection: Negative for respiratory distress or pain with movement Auscultation: Negative for rhonchi, wheezes or diminished lung sounds Cardio regular rate, regular rhythm, S1 normal heart sound, S2 normal heart sound and no murmurs Cardio Narrative: Patient tachycardic without murmurs auscultated Peripheral Pulses: pulses 2+ throughout GI normal to inspection, nondistended, normoactive bowel sounds, soft to palpation, non-tender, non-distended and no masses Back/Spine no CVA tenderness and no thoracic nor lumbar tenderness Extremity normal to inspection General Extremety ED: Negative for edema General Extremity: Negative for edema Neuro oriented x3, CN's II-XII intact bilaterally, no sensory deficits noted and gait normal Sensorium / Orientation: awake, alert, oriented to person, oriented to place and oriented to time Motor Exam: strength 5/5 throughout and strength abnormal Psych mental status grossly normal Skin no rashes or lesions noted and no wounds MDM MDM MDM Narrative Medical decision making narrative: Patient noted to have a right-sided pneumonia with criteria for sepsis. Lactate ordered and pending as initially it was unclear the etiology of his dyspnea as he has had really minimal cough and related complaint of fever or other infectious symptoms. Blood cultures ordered and patient started on Rocephin and Zithromax. Patient's D-dimer was elevated however cannot have CTA chest due to the fact that he has acute kidney injury. It appears patient had recent CTA chest that was negative for PE. I suspect the more likely diagnosis is pneumonia for his clinical presentation given the elevated white blood cell count and x-ray findings. Lab Data Attestation: I reviewed the patient's lab results. Labs: Laboratory Results - last 24 hr 11/25/20 11/25/20 11/25/20 08:35 08:35 08:35 WBC 24.1 H RBC 3.99 L Hgb 12.5 L Hct 37.8 L MCV 94.7 H MCH 31.3 MCHC 33.1 RDW Std Deviation 49.6 H RDW Coeff of Sukumar 14.3 Plt Count 284 MPV 9.4 Immature Gran % (Auto) 1.600 H Neut % (Auto) 95.4 H Lymph % (Auto) 1.7 L [place] % (Auto) 0.8 Eos % (Auto) 0.2 Baso % (Auto) 0.3 Absolute Neuts (auto) 23.0 H Absolute Lymphs (auto) 0.41 L Nucleated RBC % 0 Differential Comment SCANNED D-Dimer Quant (PE/DVT) Sodium 135 L Potassium 5.2 H Chloride 105 Carbon Dioxide 19.0 L Anion Gap 11 BUN 55 H Creatinine 2.37 H Estim Creat Clear Calc 27.36 Est GFR (MDRD) Af Amer 34 L Est GFR (MDRD) Non-Af 28 L BUN/Creatinine Ratio 23.2 H Glucose 147 H Calcium 9.5 Troponin I High Sens 19.7 B-Natriuretic Peptide 36.7 11/25/20 08:58 WBC RBC Hgb Hct MCV MCH MCHC RDW Std Deviation RDW Coeff of Sukumar Plt Count MPV Immature Gran % (Auto) Neut % (Auto) Lymph % (Auto) [place] % (Auto) Eos % (Auto) Baso % (Auto) Absolute Neuts (auto) Absolute Lymphs (auto) Nucleated RBC % Differential Comment D-Dimer Quant (PE/DVT) 1.56 H* Sodium Potassium Chloride Carbon Dioxide Anion Gap BUN Creatinine Estim Creat Clear Calc Est GFR (MDRD) Af Amer Est GFR (MDRD) Non-Af BUN/Creatinine Ratio Glucose Calcium Troponin I High Sens B-Natriuretic Peptide Radiography Chest X-Ray - ED: 1 View Diagnostic Testing: Radiology Impression Chest X-Ray 11/25/20 08:50 IMPRESSION: Right lower lung opacity/infiltrate new since previous exam. Small right pleural effusion. Electronically Signed: Mahendra Huff MD at 9:02 EDT Tel , Service support , 1 view chest x-ray obtained interpreted by myself as right lower lobe infiltrate. Radiology in agreement. EKG Initial EKG: Attestation: I personally reviewed and interpreted this EKG as follows: Comments: Sinus tachycardia with a ventricular rate of 132 bpm with old inferior infarct noted. Discharge Plan Dx/Rx/DC Orders Clinical Impression: Pneumonia, Sepsis Disposition Disposition: Acute Care Hospital [facility]
--- NOTE | 2020-11-25 08:50 | RAD_ITS ---
STUDY: X-RAY CHEST REASON FOR EXAM: Male, 80 years old. Dyspnea. TECHNIQUE: Single AP portable view of the chest. COMPARISON: 10/31/2020. FINDINGS: New large opacity in the right mid and lower lung zones. Blunting of right costophrenic angle likely affecting small right pleural effusion. Normal size heart. Normal mediastinum and param. Normal visualized pulmonary arteries. There is atherosclerotic tortuosity of the aortic arch and descending thoracic aorta. Stable osseous structures. There is no demonstrated abnormality of the visualized soft tissue structures of the upper abdomen. RAD/Chest 1 View (Portable) IMPRESSION: Right lower lung opacity/infiltrate new since previous exam. Small right pleural effusion. Electronically Signed: Mahendra Huff MD at 9:02 EDT Tel , Service support ,
[2020-11-25 08:52] LABS: Absolute Lymphocyte Count 0.41 X10^3/uL (0.83-4.51); Basophil# 0.07 X10^3/uL; Basophil% 0.3 % (0-1); Eosinophil# 0.04 X10^3/uL; Eosinophils% 0.2 % (0-5); Hematocrit 37.8 % (40-54); Hemoglobin 12.5 g/dL (13.0-16.5); Lymphocyte # 0.41 X10^3/ul (0.83-4.51); Lymphocyte % 1.7 % (19-41); Mean Corp Hgb Conc 33.1 g/dL (32-36); Mean Corpuscular Hgb 31.3 pg (27.0-32.0); Mean Corpuscular Volume 94.7 fL (80-94); Mean Platelet Vol. 9.4 fl (6.2-12.0); Monocyte# 0.19 X10^3/uL; Monocyte% 0.8 % (0-10); NRBC Flagged by Analyzer 0 % (0-5); Neutrophil # 22.96 X10^3/uL (2.7-7.7); Neutrophil % 95.4 % (47-70); POSITIVE DIFFERENTIAL YES; Platelet Count 284 K/mm3 (150-450); RBC Distribution Width CV 14.3 % (11.6-14.6); RBC Distribution Width SD 49.6 fl (35.1-43.9); Red Blood Count 3.99 M/mm3 (4.6-6.2); White Blood Count 24.1 K/mm3 (4.4-11.0)
[2020-11-25 08:55] LABS: Differential Indicated SCAN CRITERIA MET
[2020-11-25] MEDS: 0.9% Normal Saline 1,000 ML 15 ML IV (08:59)
[2020-11-25] MEDS: 0.9% Normal Saline 1,000 ML 1000 ML IV (08:59)
[2020-11-25 09:03] LABS: Anion Gap 11 (5-15); BUN 55 mg/dL (7-18); BUN/Creat Ratio 23.2 RATIO (10-20); Calcium,Total 9.5 mg/dL (8.5-10.1); Chloride 105 mmol/L (98-107); Creatinine, Serum 2.37 mg/dL (0.70-1.30); EST Glomerular Filtration Rate 28 mL/min (>60); Est Glom Filt Rate - Afr Amer 34 mL/min (>60); Estimated Creatinine Clearance 27.36 ml/min; Glucose 147 mg/dL (74-106); Potassium 5.2 mmol/L (3.5-5.1); Sodium Level 135 mmol/L (136-145); Troponin-I HS 19.7 pg/mL (3.0-78.5)
[2020-11-25 09:12] LABS: Differential Comment SCANNED
[2020-11-25 09:15] LABS: BNP,B-Type NATRIURETIC PEPTIDE 36.7 pg/mL (0-100)
[2020-11-25 09:19] LABS: D-Dimer Quantitative (DVT/PE) 1.56 FEU/ug/m (0.27-0.49)
--- NOTE | 2020-11-25 09:40 | NURSING ---
DR CULP FOR DR BLACKWOOD
--- NOTE | 2020-11-25 09:46 | PCM.HP.STD ---
HPI - General General Date of Admission: 11/25/20 HPI Narrative KULWANT ANDRADE, is a 80 M who presents with shortness of breath and cough. He was recently seen earlier this month and had a CTA of his chest because of an elevated D-dimer which was negative for PE and it did not show right lower lobe consolidation. Chest x-ray today demonstrates a right lower lobe consolidation with an elevated white count and tachycardia consistent with sepsis secondary to pneumonia. Is also been noticing over the last week that he has been waking up in the middle of the night with subjective fevers and said that he has been feeling thirsty. He states that he has been having some knee and hip pain after his first Covid shot and his PCP thinks that he has lupus and may have started him on prednisone. This may explain his elevated D-dimer especially in the setting of pneumonia. I think it is highly doubtful that he has a PE unfortunately cannot get a CTA of his chest this time secondary to his acute renal failure and a VQ scan will be unhelpful secondary to his consolidation. He states that he only got 1 shot for Covid and does not think that he has Covid but will obtain a rapid antigen to be safe. [facility] Medical History Acid reflux 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 Bigeminy Blood in stool BPH (benign prostatic hyperplasia) Cardiomyopathy in other diseases classified elsewhere D-dimer, elevated DDD (degenerative disc disease) Dyspnea on exertion Edema Essential hypertension Fibromyalgia Hemorrhoid HTN (hypertension) Hyperlipidemia Hypothyroid Nasal sinus polyp Premature atrial contractions Premature ventricular contraction Pulmonary nodule Syncope White coat syndrome with hypertension Home Medications amlodipine 10 mg PO DAILY 04/15/17 [History Last Taken 06/04/17 07:00] lisinopril 20 mg PO DAILY 04/15/17 [History Last Taken 06/04/17 07:00] omeprazole 10 mg PO DAILY 04/15/17 [History Last Taken 06/04/17 07:00] cholecalciferol (vitamin D3) 125 mcg (5,000 unit) tablet 5,000 unit PO DAILY 07/21/18 [History Last Taken Unknown] levothyroxine 88 mcg tablet 75 mcg PO DAILY 09/22/19 [History Last Taken Unknown] spironolactone 25 mg tablet 25 mg PO DAILY #90 tab 01/02/20 [Rx Last Taken Unknown] diphenhydramine 25 mg-acetaminophen 500 mg tablet 1 tab PO QHS PRN 10/31/20 [History Last Taken Unknown] prednisone 20 mg tablet 60 mg PO DAILY tab 10/31/20 [History Last Taken Unknown] aspirin 81 mg tablet,delayed release 81 mg PO DAILY 11/09/20 [History Last Taken Unknown] Allergy/AdvReac Type Severity Reaction Status Date / Time erythromycin base Allergy Hives Verified 11/25/20 08:22 amoxicillin [From Augmentin] AdvReac Severe Itching Verified 11/25/20 08:22 atorvastatin AdvReac Severe myalgias Verified 11/25/20 08:22 clavulanic acid AdvReac Severe Itching Verified 11/25/20 08:22 [From Augmentin] fenofibrate [From Tricor] AdvReac Severe myalgias Verified 11/25/20 08:22 levofloxacin [From Levaquin] AdvReac Unknown Unknown Verified 11/25/20 08:22 Family History Father CVA (cerebral vascular accident) Hypertension Heart disease Mother CAD (coronary artery disease) Brother Hypertension Brother CAD (coronary artery disease) Hypertension Sister Hypertension Sister Patent foramen ovale Sister Hypertension Lung cancer Surgical History H/O hemorrhoidectomy History of back surgery History of cholecystectomy History of kidney surgery History of radiofrequency ablation procedure for cardiac arrhythmia (~10/2002) Hx of appendectomy Social History Smoking Status: Never smoker alcohol intake: never substance use type: does not use ROS Constitutional Constitutional: Reports fever(s); Denies chills, fatigue or malaise Eyes Eyes: Denies blurry vision ENT HEENT: Denies headache(s) or nasal discharge Cardiovascular Cardiovascular: Denies chest pain, dyspnea on exertion or syncope Respiratory/Chest Respiratory/Chest: Reports cough and shortness of breath at rest; Denies shortness of breath with exertion Gastrointestinal Gastrointestinal: Denies constipation, diarrhea, nausea or vomiting Genitourinary Genitourinary: Denies dysuria Neurologic Neurologic: Denies focal weakness, numbness or tremor(s) Psychiatric Psychiatric: Denies anxiety or depression Vital Signs Vital Signs Vital Signs: 11/25/20 08:18 11/25/20 08:58 Temperature 98.5 F 97.6 F L Temperature Source Oral Temporal Pulse Rate 140 H 121 H Respiratory Rate 28 H 27 H Blood Pressure 135/73 H 119/74 Blood Pressure Mean 93 89 Pulse Ox 91 92 Oxygen Delivery Method Room Air Nasal Cannula Oxygen Flow Rate (L/min) 2 Weight Weight: 170 lb Body Mass Index (BMI) 23.7 Physical Exam Const alert, oriented x3 and no apparent distress General Appearance: cooperative HEENT normocephalic Mouth: dry mucous membranes Eyes PERRL, EOMs intact bilaterally and conjunctivae normal Neck supple and no JVD Resp normal respiratory effort, no retractions, no use of accessory muscles and clear to auscultation bilaterally Auscultation: diminished lung sounds; Negative for crackles, rales, rhonchi or wheezes Cardio regular rhythm, S1 normal heart sound, S2 normal heart sound and no murmurs Rate: tachycardic GI soft to palpation, non-tender and non-distended; Negative for hepatosplenomegaly Extremity no clubbing, cyanosis or edema Skin no rashes or lesions noted Neuro no focal motor deficits and no sensory deficits noted Psych affect normal Appearance: appropriate Results Lab / Micro Data Result Diagrams: 11/25/20 08:35 11/25/20 08:35 Labs: Laboratory Results - last 24 hr 11/25/20 11/25/20 11/25/20 08:35 08:35 08:35 WBC 24.1 H RBC 3.99 L Hgb 12.5 L Hct 37.8 L MCV 94.7 H MCH 31.3 MCHC 33.1 RDW Std Deviation 49.6 H RDW Coeff of Sukumar 14.3 Plt Count 284 MPV 9.4 Immature Gran % (Auto) 1.600 H Neut % (Auto) 95.4 H Lymph % (Auto) 1.7 L [place] % (Auto) 0.8 Eos % (Auto) 0.2 Baso % (Auto) 0.3 Absolute Neuts (auto) 23.0 H Absolute Lymphs (auto) 0.41 L Nucleated RBC % 0 Differential Comment SCANNED D-Dimer Quant (PE/DVT) Sodium 135 L Potassium 5.2 H Chloride 105 Carbon Dioxide 19.0 L Anion Gap 11 BUN 55 H Creatinine 2.37 H Estim Creat Clear Calc 27.36 Est GFR (MDRD) Af Amer 34 L Est GFR (MDRD) Non-Af 28 L BUN/Creatinine Ratio 23.2 H Glucose 147 H Calcium 9.5 Troponin I High Sens 19.7 B-Natriuretic Peptide 36.7 11/25/20 08:58 WBC RBC Hgb Hct MCV MCH MCHC RDW Std Deviation RDW Coeff of Sukumar Plt Count MPV Immature Gran % (Auto) Neut % (Auto) Lymph % (Auto) [place] % (Auto) Eos % (Auto) Baso % (Auto) Absolute Neuts (auto) Absolute Lymphs (auto) Nucleated RBC % Differential Comment D-Dimer Quant (PE/DVT) 1.56 H* Sodium Potassium Chloride Carbon Dioxide Anion Gap BUN Creatinine Estim Creat Clear Calc Est GFR (MDRD) Af Amer Est GFR (MDRD) Non-Af BUN/Creatinine Ratio Glucose Calcium Troponin I High Sens B-Natriuretic Peptide Radiology Impression Chest X-Ray 11/25/20 08:50 IMPRESSION: Right lower lung opacity/infiltrate new since previous exam. Small right pleural effusion. Electronically Signed: Mahendra Huff MD at 9:02 EDT Tel , Service support , Assessment & Plan Assessment/Plan (1) Sepsis: QUALIFIERS: Acute renal failure type: unspecified Sepsis acute organ dysfunction status: with acute organ dysfunction Sepsis type: Pneumococcus Severe sepsis acute organ dysfunction type: acute renal failure Severe sepsis shock status: without septic shock Qualified Code(s): A40.3 - Sepsis due to Streptococcus pneumoniae; R65.20 - Severe sepsis without septic shock; N17.9 - Acute kidney failure, unspecified (2) Pneumonia: QUALIFIERS: Laterality: right Lung location: lower lobe of lung Pneumonia type: due to Pneumococcus Qualified Code(s): J13 - Pneumonia due to Streptococcus pneumoniae PLAN: 1. Sepsis secondary to community-acquired pneumonia with acute BART -Continue with Rocephin and azithromycin -IV fluids at 125 cc/h -Lactate is pending, will obtain a rapid Covid antigen -D-dimer is elevated in conjunction with his potential outpatient lupus as well as his now new pneumonia, I do not believe that he has a PE, early October he had a CTA of his chest for an elevated D-dimer which was negative for a PE -We will continue with heparin prophylaxis -Cannot obtain a VQ scan secondary to his pneumonia and abnormal chest x-ray 2. HTN -He did have a recent stress test and echo which showed a normal EF with an RVSP of 34 mmHg, stress test was unremarkable however because he has been short of breath for last 2 months he will have a cath as an outpatient -We will hold his lisinopril secondary to his BART -Continue with Norvasc and aspirin 3. Hypothyroidism -Stable -Continue with Synthroid 4. GERD -Stable -Continue PPI DVT: Heparin Charges/Coding Visit Charges Inpatient E&M: 98340 Init Hosp L3
--- NOTE | 2020-11-25 09:48 | NURSING ---
MED SURG SUNI PNEUMONIA, SEPSIS, BART
[2020-11-25] MEDS: Ceftriaxone 1 GM/50 ML BAG IV (09:54)
[2020-11-25 10:06] LABS: Lactic Acid 3.8 mmol/L (0.4-1.9)
[2020-11-25] MEDS: 0.9% Normal Saline 1,000 ML 125 ML IV ×2 (11:05→18:15)
[2020-11-25 13:43] LABS: Reflex Lactate? Y
[2020-11-25 14:40] LABS: Lactic Acid 2.3 mmol/L (0.4-1.9)
[2020-11-25] MEDS: Heparin Injection (Vial) 5,000 UNIT/ML VIAL 5000 UNIT SC ×2 (15:00→20:51)
[2020-11-25] MEDS: Acetaminophen 325 MG Tablet 650 MG PO (22:37)
[2020-11-25] MEDS: MELATONIN 3 MG TABLET PO (22:37)
[2020-11-26] VITALS (36 sets, daily range): BP systolic 99–151; BP diastolic 51–91; PULSE 93–137; RESP 17–36; TEMP 36.9–38.2; O2SAT 85–97
[2020-11-26] MEDS: 0.9% Normal Saline 1,000 ML 125 ML IV ×2 (02:25→08:18)
[2020-11-26] MEDS: Heparin Injection (Vial) 5,000 UNIT/ML VIAL 5000 UNIT SC ×3 (06:22→21:50)
[2020-11-26] MEDS: Levothyroxine 75 MCG Tablet PO (06:22)
[2020-11-26 06:51] LABS: Absolute Lymphocyte Count 0.36 X10^3/uL (0.83-4.51); Absolute Neutrophil Count 20.6 X10^3/uL (2.0-7.7); Basophil# 0.03 X10^3/uL; Basophil% 0.1 % (0-1); Eosinophil# 0.05 X10^3/uL; Eosinophils% 0.2 % (0-5); Hematocrit 32.2 % (40-54); Hemoglobin 10.6 g/dL (13.0-16.5); Lymphocyte # 0.36 X10^3/ul (0.83-4.51); Lymphocyte % 1.7 % (19-41); Mean Corp Hgb Conc 32.9 g/dL (32-36); Mean Corpuscular Hgb 31.2 pg (27.0-32.0); Mean Corpuscular Volume 94.7 fL (80-94); Mean Platelet Vol. 9.6 fl (6.2-12.0); Monocyte# 0.17 X10^3/uL; Monocyte% 0.8 % (0-10); NRBC Flagged by Analyzer 0 % (0-5); Neutrophil # 20.59 X10^3/uL (2.7-7.7); Neutrophil % 96.1 % (47-70); POSITIVE DIFFERENTIAL YES; Platelet Count 258 K/mm3 (150-450); RBC Distribution Width CV 14.9 % (11.6-14.6); RBC Distribution Width SD 51.9 fl (35.1-43.9); White Blood Count 21.4 K/mm3 (4.4-11.0)
[2020-11-26 06:53] LABS: Differential Indicated SCAN CRITERIA MET
[2020-11-26 07:10] LABS: Anion Gap 11 (5-15); BUN 43 mg/dL (7-18); BUN/Creat Ratio 27.4 RATIO (10-20); Calcium,Total 8.4 mg/dL (8.5-10.1); Chloride 108 mmol/L (98-107); Creatinine, Serum 1.57 mg/dL (0.70-1.30); EST Glomerular Filtration Rate 46 mL/min (>60); Est Glom Filt Rate - Afr Amer 55 mL/min (>60); Glucose 95 mg/dL (74-106); Potassium 4.3 mmol/L (3.5-5.1); Sodium Level 139 mmol/L (136-145)
[2020-11-26] MEDS: Acetaminophen 325 MG Tablet 650 MG PO (08:15)
[2020-11-26] MEDS: Aspirin E.C. 81 MG Tablet PO (08:19)
[2020-11-26] MEDS: Azithromycin 250 MG Tablet 500 MG PO (08:19)
[2020-11-26] MEDS: amLODIPine 10 MG Tablet PO (08:19)
[2020-11-26] MEDS: Pantoprazole Sodium 20 MG Tablet PO (08:19)
[2020-11-26] MEDS: Ceftriaxone 1 GM/50 ML BAG IV (08:21)
[2020-11-26] MEDS: 0.9% Normal Saline 1,000 ML 150 ML IV ×2 (09:35→20:21)
--- NOTE | 2020-11-26 09:42 | CT_ITS ---
STUDY: CTA CHEST REASON FOR EXAM: Male, 80 years old. Elevated d-dimer. Shortness of breath and cough. History of Covid. RADIATION DOSAGE (If Supplied By Facility): CTDIvol = ( 13.98 ) mGy, DLP = ( 462.90 ) mGycm TECHNIQUE: The examination was performed with the intravenous administration of IV 100mL Isovue-370. Post-processing of the angiographic images was performed, with multiplanar reformation and 3D reconstruction. Individualized dose optimization techniques were used for this CT. COMPARISON: Comparison is made with prior study dated 11/01/2020. FINDINGS: Normal enhancement of the main pulmonary artery and right and left pulmonary arteries. Normal enhancement of the bilateral peripheral pulmonary arteries. There is no demonstrated pulmonary embolism. Normal thoracic aorta and visualized great vessels. There is no demonstrated aortic dissection. Normal heart and pericardium. Normal mediastinum. Normal hilar regions. Normal visualized trachea and bronchi. Loss of volume in the right hemithorax. Dense consolidation in the posterior segment of the right upper lobe abutting the right major fissure. Infiltration extends into the right middle lobe. Patchy infiltrate in the right lower lobe with a small right pleural effusion. Mild increased markings at the left lung base. Normal chest wall structures. There are degenerative changes of thoracic spine. Stable cyst in the upper pole of the left kidney. CT/CTA Chest W/WO Contrast IMPRESSION: No evidence of pulmonary embolism. Dense consolidation involving the right upper lobe as well as the right middle lobe. Mild increased markings at the left lung base and right lower lobe. Electronically Signed: Charanjit Smith MD at 10:46 EDT , Service support ,
--- NOTE | 2020-11-26 09:50 | PCM.RX.CS ---
Consult Pharmacy has been consulted to manage selected antiobiotic: Vancomycin Type of Consult: New start Suspected Infection: Sepsis Labs: Sodium 139 mmol/L (136-145) 11/26/20 06:20 Potassium 4.3 mmol/L (3.5-5.1) 11/26/20 06:20 Chloride 108 mmol/L (98-107) H 11/26/20 06:20 Carbon Dioxide 20.0 mmol/L (21.0-32.0) L 11/26/20 06:20 Anion Gap 11 (5-15) 11/26/20 06:20 BUN 43 mg/dL (7-18) H 11/26/20 06:20 Creatinine 1.57 mg/dL (0.70-1.30) H 11/26/20 06:20 Est GFR (MDRD) Af Amer 55 mL/min (>60) L 11/26/20 06:20 Est GFR (MDRD) Non-Af 46 mL/min (>60) L 11/26/20 06:20 BUN/Creatinine Ratio 27.4 RATIO (10-20) H 11/26/20 06:20 Glucose 95 mg/dL (74-106) 11/26/20 06:20 Microbiology: Microbiology 11/25/20 12:05 Mucosa - Nose SARS-CoV-2 Antigen (Rapid) - Final Estimated Creatinine Clearance: 41 ml/min Goal Trough: 15-20 mcg/mL Pharmacy Plan for Drug Dosing: NEW START IV VANCOMYCIN Consulting Physician: Sweta Indication: Sepsis Goal Trough: 15-20 SrCr: 1.57 CrCl: 41 mls/min Comments: 15mg/kg loading dose ordered = Vancomycin 1250mg IV x1 Vancomcyin Dose: Based on patients weight and renal function, recommend an initial dose of Vancomycin 500mg IV q12h. Trough level before the 4th total dose Pending Level: 11/26/20 @ 2130 Pharmacy Service will continue to monitor and adjust dosing as required. Follow-Up Labs: Trough Vancomycin - 11/26/20 @ 7277
--- NOTE | 2020-11-26 11:43 | EX.PCM.CONCC ---
Assessment & Plan Assessment/Plan (1) Acute hypoxemic respiratory failure: PLAN: RECOMMENDATIONS: 1. Okay to start heated high flow oxygen to maintain saturations at or above 90%. 2. Continue broad-spectrum antimicrobials. 3. Consider stopping supplemental IV fluids, given overall net positive volume status. 4. Check strep and urine Legionella antigens. 5. Resume prednisone 40 mg daily. 6. Consider bronchoscopy if no clinical improvement over the next 24 hours. IMPRESSIONS: 1. Acute hypoxemic respiratory failure Appears to be secondary to multilobar pneumonia. Agree with broadening of antimicrobials to vancomycin and cefepime. Will check strep and urine Legionella antigens as well. Coronavirus PCR was negative. CTA chest showed no evidence for PE. 2. Severe sepsis Secondary to underlying pulmonary infectious etiology. Given that the patient has been on prednisone therapy now at 60 mg daily for the last 6 weeks, I would avoid abrupt cessation of his corticosteroids. We will resume prednisone at 40 mg daily to avoid any form of adrenal insufficiency. The patient is currently hemodynamically stable. Continue antimicrobials per ID recommendations. 3. Acute kidney injury Most likely prerenal in etiology. Creatinine has improved with volume expansion. Continue to monitor urine output. No current indication for renal replacement therapy. 4. Positive autoimmune work-up There has been concern for a possible underlying autoimmune process in the past. The patient's PCP placed him on prednisone approximately 6 weeks ago. The patient was referred to rheumatology but has yet to be evaluated. 5. Hypertension/hypothyroidism/GERD Complicates care, management, recovery and prognosis. Continue home medications as indicated. CODE status: Discussed CODE status at length including difference between FULL code, DNR-CCA and DNR-CC status. Following discussions about the differences in these status, patient requested FULL CODE STATUS. Advanced Care Planning Face to Face Time: 12 minutes This note was generated with [employer] dictation software. It may contain incorrect words, spelling, and punctuation that were not noted in checking the note before signing. HPI Consult Data Date of Consult: 11/27/20 HPI Narrative Reason for Consultation: Acute hypoxemic respiratory failure HPI Narrative: The patient is a 80-year-old male, with a history as outlined below, who presented to the emergency department on November 25 with shortness of breath and joint pain. The patient reported that his symptoms have been progressing over the last 2 weeks. Although he does have a cough, he has been unable to produce any sputum. The patient has been on prednisone 60 mg daily now for approximately 6 weeks over concerns for an underlying autoimmune process. The patient was recently seen by myself in the pulmonary medicine clinic on November 07 after he presented for the evaluation of a pulmonary nodule. The patient did report, at that time, that since receiving his coronavirus vaccination, he had been experiencing exertional shortness of breath. 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 He is a lifelong non-smoker, but did report secondhand smoke exposure, having grown up in a smoking household. It did appear that based upon prior lab work in our system, and more recently lab work completed through [facility], that the patient has had a positive autoimmune screen dating back to 2018 with positive antidouble-stranded antibodies, with concern for possible underlying SLE. Pharmacologic stress test completed on November 08 revealed possible mismatch concerning for stress-induced myocardial ischemia. Surface echocardiogram revealed normal LV size and function with an ejection fraction of 65%. Right ventricular systolic pressure was estimated to be 34 mmHg. On presentation to the emergency department, the patient was noted to be afebrile and hemodynamically stable. However, the patient was notably tachycardic and tachypneic. Initial laboratory evaluation revealed an elevated white blood cell count to 24,000. Coagulation profile revealed a D-dimer of 1.56. Chemistry profile was notable for a sodium of 135, potassium of 5.2, bicarbonate of 19 and creatinine of 2.37. Lactate was elevated to 3.8. Chest x-ray revealed a right lower lobe airspace opacity and pleural effusion. The patient was initially placed on antimicrobials and admitted to the progressive care unit. During the course of the day, November 26, the patient continued to decline from a respiratory perspective. A CTA chest was obtained which showed no evidence for PE. There was a dense airspace consolidation present in the right middle and upper lobes. Due to the patient's declining respiratory status, he was transferred to the medical intensive care unit for further management. 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 Bigeminy Blood in stool BPH (benign prostatic hyperplasia) Cardiomyopathy in other diseases classified elsewhere D-dimer, elevated DDD (degenerative disc disease) Dyspnea on exertion Edema Essential hypertension Fibromyalgia Hemorrhoid HTN (hypertension) Hyperlipidemia Hypothyroid Nasal sinus polyp Premature atrial contractions Premature ventricular contraction Pulmonary nodule Syncope White coat syndrome with hypertension Home Medications amlodipine 10 mg PO DAILY 04/15/17 [History Last Taken 06/04/17 07:00] lisinopril 20 mg PO DAILY 04/15/17 [History Last Taken 06/04/17 07:00] omeprazole 10 mg PO DAILY 04/15/17 [History Last Taken 06/04/17 07:00] cholecalciferol (vitamin D3) 125 mcg (5,000 unit) tablet 5,000 unit PO DAILY 07/21/18 [History Last Taken Unknown] levothyroxine 88 mcg tablet 75 mcg PO DAILY 09/22/19 [History Last Taken Unknown] spironolactone 25 mg tablet 25 mg PO DAILY #90 tab 01/02/20 [Rx Last Taken Unknown] diphenhydramine 25 mg-acetaminophen 500 mg tablet 1 tab PO QHS PRN 10/31/20 [History Last Taken Unknown] prednisone 20 mg tablet 60 mg PO DAILY tab 10/31/20 [History Last Taken Unknown] aspirin 81 mg tablet,delayed release 81 mg PO DAILY 11/09/20 [History Last Taken Unknown] Allergy/AdvReac Type Severity Reaction Status Date / Time erythromycin base Allergy Hives Verified 11/25/20 08:22 amoxicillin [From Augmentin] AdvReac Severe Itching Verified 11/25/20 08:22 atorvastatin AdvReac Severe myalgias Verified 11/25/20 08:22 clavulanic acid AdvReac Severe Itching Verified 11/25/20 08:22 [From Augmentin] fenofibrate [From Tricor] AdvReac Severe myalgias Verified 11/25/20 08:22 levofloxacin [From Levaquin] AdvReac Unknown Unknown Verified 11/25/20 08:22 Family History Father CVA (cerebral vascular accident) Hypertension Heart disease Mother CAD (coronary artery disease) Brother Hypertension Brother CAD (coronary artery disease) Hypertension Sister Hypertension Sister Patent foramen ovale Sister Hypertension Lung cancer Surgical History H/O hemorrhoidectomy History of back surgery History of cholecystectomy History of kidney surgery History of radiofrequency ablation procedure for cardiac arrhythmia (~10/2002) Hx of appendectomy Social History Smoking Status: Never smoker alcohol intake: never substance use type: does not use ROS Constitutional Constitutional: Reports body ache(s), chills and fatigue Eyes Eyes: Denies blurry vision or change in vision ENT HEENT: Denies dizziness, dysphagia, epistaxis or headache(s) Cardiovascular Cardiovascular: Reports dyspnea; Denies chest pain Respiratory/Chest Respiratory/Chest: Reports cough and shortness of breath with exertion; Denies chest tightness Gastrointestinal Gastrointestinal: Denies abdominal pain, diarrhea, nausea or vomiting Genitourinary Genitourinary: Denies difficulty urinating Musculoskeletal Musculoskeletal: Reports arthralgias Integumentary Integumentary: Denies lesions, rash or skin ulcer Neurologic Neurologic: Denies abnormal gait, abnormal speech or confusion Psychiatric Psychiatric: Denies anxiety or depression Endocrine Endocrinology: Reports fatigue Hematologic/Lymphatic Hematologic/Lymphatic: Denies easy bleeding or easy bruising Physical Exam Const alert and oriented x3 General Appearance: cooperative HEENT normocephalic, head/scalp atraumatic and moist oral mucous membranes Eyes PERRL, EOMs intact bilaterally and conjunctivae normal Neck supple General: trachea midline Resp Effort and Inspection: tachypneic Auscultation: rhonchi and diminished lung sounds Cardio S1 normal heart sound and S2 normal heart sound Rate: tachycardic Rhythm: abnormal rhythm GI normal to inspection, nondistended, normoactive bowel sounds Extremity no clubbing, cyanosis or edema Skin no rashes or lesions noted Neuro CN's II-XII intact bilaterally, moves all extremities and no focal motor deficits Psych cooperative and affect normal Lab / Micro Data Result Diagrams: 11/27/20 05:00 11/27/20 05:00 Labs: Laboratory Results - last 24 hr 11/25/20 11/26/20 11/26/20 13:57 06:20 06:20 WBC 21.4 H RBC 3.40 L Hgb 10.6 L Hct 32.2 L MCV 94.7 H MCH 31.2 MCHC 32.9 RDW Std Deviation 51.9 H RDW Coeff of Sukumar 14.9 H Plt Count 258 MPV 9.6 Immature Gran % (Auto) 1.100 H Neut % (Auto) 96.1 H Lymph % (Auto) 1.7 L [place] % (Auto) 0.8 Eos % (Auto) 0.2 Baso % (Auto) 0.1 Absolute Neuts (auto) 20.6 H Absolute Lymphs (auto) 0.36 L Nucleated RBC % 0 Sodium 139 Potassium 4.3 Chloride 108 H Carbon Dioxide 20.0 L Anion Gap 11 BUN 43 H Creatinine 1.57 H Estim Creat Clear Calc 41.30 Est GFR (MDRD) Af Amer 55 L Est GFR (MDRD) Non-Af 46 L BUN/Creatinine Ratio 27.4 H Glucose 95 Lactic Acid 2.3 H* Calcium 8.4 L Micro: Microbiology 11/25/20 12:05 SARS-CoV-2 Antigen (Rapid) - Final Mucosa - Nose Radiology Impression Chest CTA 11/26/20 09:42 IMPRESSION: No evidence of pulmonary embolism. Dense consolidation involving the right upper lobe as well as the right middle lobe. Mild increased markings at the left lung base and right lower lobe. Electronically Signed: Charanjit Smith MD at 10:46 EDT , Service support , Charges/Coding Visit Charges Inpatient E&M: 63005 Init Hosp L3 Procedures Hospitalists Procedures: 28036 Advncd Care Plan 30 Min
--- NOTE | 2020-11-26 12:07 | NURSING ---
report called to Yvan You RN
[2020-11-26] MEDS: Cefepime HCl 2 GM in 0.9% NS 100 ML Minibag Q8 IV ×2 (12:37→22:06)
--- NOTE | 2020-11-26 13:47 | PCM.CONS.GEN ---
Assessment & Plan Assessment/Plan (1) Acute hypoxemic respiratory failure: (2) Pneumonia: QUALIFIERS: Pneumonia type: due to Pneumococcus Laterality: right Lung location: lower lobe of lung Qualified Code(s): J13 - Pneumonia due to Streptococcus pneumoniae (3) BART (acute kidney injury): (4) Severe sepsis: PLAN: severe sepsis with BART, hypoxia. Has been on 60mg daily prednisone for past 6 weeks, so is at risk for pneumocystis. - With one week of fatigue, dry cough, dyspnea, body aches, fever, and loss of taste, and now presenting with rapidly progressive hypoxic resp failure and lymphopenia, high concern for covid despite one negative pcr. Only received 1st dose covid vaccine 07/30/20. CT showed no PE. - Agree with vanc/cefepime for bacterial pneumonia coverage, will add remdesivir for covid. - Recommend tapering steroids, not stopping completely given high dose that he has been on. - BART improving - Recommend addressing code status. Will follow, thank you, d/w Dr. Mckeon and nursing. HPI Consult Data Date of Consult: 11/26/20 HPI Narrative HPI Narrative: KULWANT ANDRADE, is a 80 M who presented yesterday with one week of aches, fever, dyspnea, fatigue, dry cough, and loss of sense of taste. Had 1st dose of covid vaccine 07/30/20. A week later developed ongoing mild aches, PCP started 6mg daily of pred for 6 weeks without improvement. New PCP started 60mg pred daily for the past 6 weeks, not on any bacterial prophylaxis. Did not get 2nd dose of vaccine. No sick contacts. Noticed 11/18 that he could not taste his food. Worsened symptoms throughout the week, admitted here 11/25, started azithro/ceftriaxone, rapid covid neg. Now much worse hypoxia, transferred to icu, covid pcr neg, changed to vanc/cefepime, CTA done which showed no PE. Full ROS performed and neg except as noted above. No sputum, no n/v/d. 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 Bigeminy Blood in stool BPH (benign prostatic hyperplasia) Cardiomyopathy in other diseases classified elsewhere D-dimer, elevated DDD (degenerative disc disease) Dyspnea on exertion Edema Essential hypertension Fibromyalgia Hemorrhoid HTN (hypertension) Hyperlipidemia Hypothyroid Nasal sinus polyp Premature atrial contractions Premature ventricular contraction Pulmonary nodule Syncope White coat syndrome with hypertension Home Medications amlodipine 10 mg PO DAILY 04/15/17 [History Last Taken 06/04/17 07:00] lisinopril 20 mg PO DAILY 04/15/17 [History Last Taken 06/04/17 07:00] omeprazole 10 mg PO DAILY 04/15/17 [History Last Taken 06/04/17 07:00] cholecalciferol (vitamin D3) 125 mcg (5,000 unit) tablet 5,000 unit PO DAILY 07/21/18 [History Last Taken Unknown] levothyroxine 88 mcg tablet 75 mcg PO DAILY 09/22/19 [History Last Taken Unknown] spironolactone 25 mg tablet 25 mg PO DAILY #90 tab 01/02/20 [Rx Last Taken Unknown] diphenhydramine 25 mg-acetaminophen 500 mg tablet 1 tab PO QHS PRN 10/31/20 [History Last Taken Unknown] prednisone 20 mg tablet 60 mg PO DAILY tab 10/31/20 [History Last Taken Unknown] aspirin 81 mg tablet,delayed release 81 mg PO DAILY 11/09/20 [History Last Taken Unknown] Allergy/AdvReac Type Severity Reaction Status Date / Time erythromycin base Allergy Hives Verified 11/25/20 08:22 amoxicillin [From Augmentin] AdvReac Severe Itching Verified 11/25/20 08:22 atorvastatin AdvReac Severe myalgias Verified 11/25/20 08:22 clavulanic acid AdvReac Severe Itching Verified 11/25/20 08:22 [From Augmentin] fenofibrate [From Tricor] AdvReac Severe myalgias Verified 11/25/20 08:22 levofloxacin [From Levaquin] AdvReac Unknown Unknown Verified 11/25/20 08:22 Family History Father CVA (cerebral vascular accident) Hypertension Heart disease Mother CAD (coronary artery disease) Brother Hypertension Brother CAD (coronary artery disease) Hypertension Sister Hypertension Sister Patent foramen ovale Sister Hypertension Lung cancer Surgical History H/O hemorrhoidectomy History of back surgery History of cholecystectomy History of kidney surgery History of radiofrequency ablation procedure for cardiac arrhythmia (~10/2002) Hx of appendectomy Social History Smoking Status: Never smoker alcohol intake: never substance use type: does not use Physical Exam Const alert General Appearance: cooperative HEENT normocephalic and head/scalp atraumatic Eyes PERRL and EOMs intact bilaterally Neck supple and No nodes Resp clear to auscultation bilaterally Auscultation: diminished lung sounds Cardio regular rate and regular rhythm GI normal to inspection, nondistended, normoactive bowel sounds Extremity no clubbing, cyanosis or edema Skin no rashes or lesions noted Neuro CN's II-XII intact bilaterally Psych mental status grossly normal Lab / Micro Data Result Diagrams: 11/26/20 06:20 11/26/20 06:20 Labs: Laboratory Results - last 24 hr 11/25/20 11/26/20 11/26/20 13:57 06:20 06:20 WBC 21.4 H RBC 3.40 L Hgb 10.6 L Hct 32.2 L MCV 94.7 H MCH 31.2 MCHC 32.9 RDW Std Deviation 51.9 H RDW Coeff of Sukumar 14.9 H Plt Count 258 MPV 9.6 Immature Gran % (Auto) 1.100 H Neut % (Auto) 96.1 H Lymph % (Auto) 1.7 L [place] % (Auto) 0.8 Eos % (Auto) 0.2 Baso % (Auto) 0.1 Absolute Neuts (auto) 20.6 H Absolute Lymphs (auto) 0.36 L Nucleated RBC % 0 Sodium 139 Potassium 4.3 Chloride 108 H Carbon Dioxide 20.0 L Anion Gap 11 BUN 43 H Creatinine 1.57 H Estim Creat Clear Calc 41.30 Est GFR (MDRD) Af Amer 55 L Est GFR (MDRD) Non-Af 46 L BUN/Creatinine Ratio 27.4 H Glucose 95 Lactic Acid 2.3 H* Calcium 8.4 L COVID-19 ([place]) 11/26/20 10:12 WBC RBC Hgb Hct MCV MCH MCHC RDW Std Deviation RDW Coeff of Sukumar Plt Count MPV Immature Gran % (Auto) Neut % (Auto) Lymph % (Auto) [place] % (Auto) Eos % (Auto) Baso % (Auto) Absolute Neuts (auto) Absolute Lymphs (auto) Nucleated RBC % Sodium Potassium Chloride Carbon Dioxide Anion Gap BUN Creatinine Estim Creat Clear Calc Est GFR (MDRD) Af Amer Est GFR (MDRD) Non-Af BUN/Creatinine Ratio Glucose Lactic Acid Calcium COVID-19 ([place]) Not Detected Micro: Microbiology 11/25/20 12:05 SARS-CoV-2 Antigen (Rapid) - Final Mucosa - Nose Radiology Impression Chest CTA 11/26/20 09:42 IMPRESSION: No evidence of pulmonary embolism. Dense consolidation involving the right upper lobe as well as the right middle lobe. Mild increased markings at the left lung base and right lower lobe. Electronically Signed: Charanjit Smith MD at 10:46 EDT , Service support ,
[2020-11-26 13:57] LABS: Magnesium 2.2 mg/dL (1.6-2.6)
[2020-11-26] MEDS: predniSONE 20 MG Tablet 40 MG PO (14:16)
[2020-11-26 14:28] LABS: AST(SGOT) 17 U/L (15-37); Alanine Aminotransfer ALT/SGPT 25 U/L (16-61); Albumin, Serum 1.6 g/dL (3.2-5.0); Alkaline Phosphatase 101 U/L (45-117); Bilirubin, Direct 0.24 mg/dL (0.00-0.30); Globulin 3.8 g/dL (2.2-4.2); Protein, Total 5.4 g/dL (6.4-8.2)
--- NOTE | 2020-11-26 15:05 | PN.HOSP_ITS ---
Subjective Subjective Patient seen and examined. He said he felt terrible, and felt much weaker. He felt more short of breath, and had a cough which was nonproductive. He denied any fever or chills. REview of systems was otherwise negative. WBC aspirin down slightly to 21.4 Objective Data Objective Data Vital Signs: Vital Signs Temp Pulse Resp BP Pulse Ox 98.6 F 115 H 22 H 112/54 L 92 11/26/20 12:30 11/26/20 14:30 11/26/20 14:30 11/26/20 14:30 11/26/20 14:30 Oxygen Flow Rate (L/min) 60 Oxygen Delivery Method Airvo Weight: 172 lb 2.896 oz Body Mass Index (BMI) 24.0 Intake & Output: Intake and Output for Last 24 Hours 11/24/20 11/25/20 11/26/20 23:59 23:59 23:59 Intake Total 4298.75 / 4538.75 3351.25 / 3351.25 Output Total 550 / 550 Balance 4298.75 / 4438.75 2801.25 / 2801.25 Lab / Micro Data Result Diagrams: 11/26/20 06:20 11/26/20 06:20 Labs: Laboratory Results - last 24 hr 11/26/20 11/26/20 11/26/20 06:20 06:20 06:20 WBC 21.4 H RBC 3.40 L Hgb 10.6 L Hct 32.2 L MCV 94.7 H MCH 31.2 MCHC 32.9 RDW Std Deviation 51.9 H RDW Coeff of Sukumar 14.9 H Plt Count 258 MPV 9.6 Immature Gran % (Auto) 1.100 H Neut % (Auto) 96.1 H Lymph % (Auto) 1.7 L [place] % (Auto) 0.8 Eos % (Auto) 0.2 Baso % (Auto) 0.1 Absolute Neuts (auto) 20.6 H Absolute Lymphs (auto) 0.36 L Nucleated RBC % 0 Sodium 139 Potassium 4.3 Chloride 108 H Carbon Dioxide 20.0 L Anion Gap 11 BUN 43 H Creatinine 1.57 H Estim Creat Clear Calc 41.30 Est GFR (MDRD) Af Amer 55 L Est GFR (MDRD) Non-Af 46 L BUN/Creatinine Ratio 27.4 H Glucose 95 Calcium 8.4 L Magnesium 2.2 Total Bilirubin Direct Bilirubin AST ALT Alkaline Phosphatase Total Protein Albumin Globulin COVID-19 ([place]) 11/26/20 11/26/20 06:20 10:12 WBC RBC Hgb Hct MCV MCH MCHC RDW Std Deviation RDW Coeff of Sukumar Plt Count MPV Immature Gran % (Auto) Neut % (Auto) Lymph % (Auto) [place] % (Auto) Eos % (Auto) Baso % (Auto) Absolute Neuts (auto) Absolute Lymphs (auto) Nucleated RBC % Sodium Potassium Chloride Carbon Dioxide Anion Gap BUN Creatinine Estim Creat Clear Calc Est GFR (MDRD) Af Amer Est GFR (MDRD) Non-Af BUN/Creatinine Ratio Glucose Calcium Magnesium Total Bilirubin 0.70 Direct Bilirubin 0.24 AST 17 ALT 25 Alkaline Phosphatase 101 Total Protein 5.4 L Albumin 1.6 L Globulin 3.8 COVID-19 ([place]) Not Detected Micro: Microbiology 11/25/20 12:05 Mucosa - Nose SARS-CoV-2 Antigen (Rapid) - Final Radiography Diagnostic Testing: Radiology Impression Chest CTA 11/26/20 09:42 IMPRESSION: No evidence of pulmonary embolism. Dense consolidation involving the right upper lobe as well as the right middle lobe. Mild increased markings at the left lung base and right lower lobe. Electronically Signed: Charanjit Smith MD at 10:46 EDT , Service support , Physical Exam Const alert and oriented x3 Constitutional Narrative: Looks acutely ill Orientation / Consciousness: lethargic Exam Limitations: no limitations HEENT head/scalp atraumatic Head and Scalp: normocephalic Mouth: dry mucous membranes Eyes PERRL, EOMs intact bilaterally and conjunctivae normal Neck no lymphadenopathy Resp Resp Narrative: Patient on 6 L of oxygen. Diminished breath sounds bibasally. Cardio Cardio Narrative: tachycardic, normal S1 and S2 , no murmurs GI normal to inspection, nondistended, normoactive bowel sounds, soft to palpation, non-tender and non-distended Extremity normal to inspection, full ROM and no clubbing, cyanosis or edema Peripheral Pulses: Yes pulses 2+ throughout Skin no rashes or lesions noted Neuro oriented x3 Sensorium / Orientation: awake and alert Psych affect normal Assessment & Plan Assessment/Plan (1) Severe sepsis: (2) BART (acute kidney injury): (3) Pneumonia: QUALIFIERS: Pneumonia type: due to Pneumococcus Laterality: right Lung location: lower lobe of lung Qualified Code(s): J13 - Pneumonia due to Streptococcus pneumoniae (4) Acute hypoxemic respiratory failure: PLAN: #Severe sepsis due to community acquired pneumonia * patient looked much sicker today and felt very unwell * rapid covid antigen test was negative. * D-dimer was elevated. Started on IV ceftriaxone and oral azithromycin * Will get a Covid PCR will get a CT of the chest as creatinine is trending down from 2.37 to about 1.5. * Broaden IV antibiotics to IV vancomycin and IV cefepime. Blood cultures pending. * Consult ID and critical care and transfer patient to ICU * #Acute hypoxic respiratory failure due to pneumonia * Patient was on 6 L of oxygen at time of review this morning but his oxygen requirements went up to around 14 L by late morning. * Patient does not wear oxygen at home. On breathing treatments bronchodilators. CT of the chest ordered and patient will be transferred to the ICU. Critical care consulted. * Titrate oxygen to maintain saturation above 90%. * Breathing treatments bronchodilators. Urine for strep and Legionella ordered. * #BART: Improving. Creatinine trended down from 2.37-1.5. Been hydrated with IV fluids #Elevated D-dimer: CTA of the chest negative for PE #Hypertension * Lisinopril held on account of BART. On Norvasc * #Hypothyroidism: On Synthroid #GERD: On PPI #History of pulmonary nodule * Recently saw the wringer operator in the office on November 07 and at that time said since receiving his Covid vaccination, he has been getting short of breath. 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 steroids. Follow-up with rheumatology on outpatient basis. * DVT prophylaxis: Heparin Charges/Coding Visit Charges Inpatient E&M: 68230 Subs Hosp L3
--- NOTE | 2020-11-26 16:00 | CASEMGMT ---
RN CM assessment deferred at this time due to patient being on Airvo with FiO2 @ 73%. CM will continue to follow this patient and plan for a safe discharge.
[2020-11-26] MEDS: Vancomycin IV 500 MG/100 ML BAG 100 MG IV (22:45)
[2020-11-27] VITALS (48 sets, daily range): BP systolic 105–174; BP diastolic 47–145; PULSE 68–173; RESP 16–37; TEMP 36.9–37.7; O2SAT 80–97
[2020-11-27 05:14] LABS: Absolute Lymphocyte Count 0.24 X10^3/uL (0.83-4.51); Absolute Neutrophil Count 18.9 X10^3/uL (2.0-7.7); Basophil# 0.02 X10^3/uL; Basophil% 0.1 % (0-1); Eosinophil# 0.01 X10^3/uL; Eosinophils% 0.1 % (0-5); Hematocrit 30.9 % (40-54); Hemoglobin 10.3 g/dL (13.0-16.5); Lymphocyte # 0.24 X10^3/ul (0.83-4.51); Lymphocyte % 1.2 % (19-41); Mean Corp Hgb Conc 33.3 g/dL (32-36); Mean Corpuscular Hgb 31.4 pg (27.0-32.0); Mean Corpuscular Volume 94.2 fL (80-94); Mean Platelet Vol. 9.5 fl (6.2-12.0); Monocyte# 0.19 X10^3/uL; NRBC Flagged by Analyzer 0 % (0-5); Neutrophil # 18.93 X10^3/uL (2.7-7.7); Neutrophil % 96.2 % (47-70); POSITIVE DIFFERENTIAL YES; Platelet Count 266 K/mm3 (150-450); RBC Distribution Width CV 14.9 % (11.6-14.6); RBC Distribution Width SD 52.6 fl (35.1-43.9); Red Blood Count 3.28 M/mm3 (4.6-6.2); White Blood Count 19.7 K/mm3 (4.4-11.0)
[2020-11-27 05:15] LABS: Differential Indicated SCAN CRITERIA MET
[2020-11-27 05:31] LABS: ALB/GLOB Ratio 0.3 RATIO (0.9-2.4); AST(SGOT) 24 U/L (15-37); Alanine Aminotransfer ALT/SGPT 33 U/L (16-61); Albumin, Serum 1.4 g/dL (3.2-5.0); Alkaline Phosphatase 112 U/L (45-117); Anion Gap 10 (5-15); BUN 31 mg/dL (7-18); BUN/Creat Ratio 24.4 RATIO (10-20); Calcium,Total 8.2 mg/dL (8.5-10.1); Chloride 110 mmol/L (98-107); Creatinine, Serum 1.27 mg/dL (0.70-1.30); EST Glomerular Filtration Rate 58 mL/min (>60); Est Glom Filt Rate - Afr Amer 71 mL/min (>60); Estimated Creatinine Clearance 51.06 ml/min; Globulin 4.4 g/dL (2.2-4.2); Glucose 116 mg/dL (74-106); Potassium 4.2 mmol/L (3.5-5.1); Protein, Total 5.8 g/dL (6.4-8.2); Sodium Level 140 mmol/L (136-145)
--- NOTE | 2020-11-27 05:48 | PCM.PN.INT ---
Assessment & Plan Assessment/Plan (1) Acute hypoxemic respiratory failure: PLAN: RECOMMENDATIONS: 1. Continue Airvo heated high flow and wean FiO2 to maintain saturations at or above 90%. 2. Continue antimicrobials per ID recommendations. 3. Performed bedside bronchoscopy this morning. 4. Okay to resume diet after bronchoscopy. 5. Continue prednisone 40 mg daily. IMPRESSIONS: 1. Acute hypoxemic respiratory failure Appears to be secondary to multilobar Legionella pneumonia. However, in light of the patient's clinical presentation and oxygenation status, will perform bronchoscopy this morning. BAL fluid will be sent for analysis. We will also resend coronavirus PCR on lavage fluid. In the interim, continue to wean FiO2 to maintain oxygen saturations at or above 90%. Continue antimicrobials per ID recommendations. 2. Severe sepsis Secondary to underlying pulmonary infectious etiology. Given that the patient has been on prednisone therapy now at 60 mg daily for the last 6 weeks, I would avoid abrupt cessation of his corticosteroids. Will resume prednisone at 40 mg daily to avoid any form of adrenal insufficiency. The patient is currently hemodynamically stable. Continue antimicrobials per ID recommendations. 3. Acute kidney injury Resolved. Most likely prerenal in etiology. Creatinine has improved with volume expansion. Continue to monitor urine output. No current indication for renal replacement therapy. 4. Positive autoimmune work-up There has been concern for a possible underlying autoimmune process in the past. The patient's PCP placed him on prednisone approximately 6 weeks ago. The patient was referred to rheumatology but has yet to be evaluated. 5. Hypertension/hypothyroidism/GERD Complicates care, management, recovery and prognosis. Continue home medications as indicated. CODE status: Discussed CODE status at length including difference between FULL code, DNR-CCA and DNR-CC status. Following discussions about the differences in these status, patient requested FULL CODE STATUS. This note was generated with hearo[employer]fm dictation software. It may contain incorrect words, spelling, and punctuation that were not noted in checking the note before signing. Subjective Subjective The patient was seen and examined at the bedside this morning. Events from the last 24 hours have been reviewed. The patient is currently afebrile, hemodynamically stable and maintaining appropriate oxygen saturations on Airvo heated high flow oxygen with an FiO2 requirement of 70% and flow rate of 60 L/min. The patient is currently documented to be overall net +8.9 L for the hospital admission. White blood cell count remains elevated at 20,000. Creatinine has improved to 1.27. In light of the patient's oxygenation status and following my discussion with infectious diseases yesterday, will plan to proceed with bedside bronchoscopy and BAL this morning. Risks and benefits were reviewed with the patient and he is agreeable to proceed. Objective Data Objective Data The patient's most recent lab work, culture data and imaging studies have all been personally reviewed. Surface echocardiogram dated November 08 revealed normal LV size with an ejection fraction of 65%. Right ventricular systolic pressure was estimated to be 34 mmHg. Legionella urine antigen was positive. Streptococcus urinary antigen was negative. Both rapid coronavirus antigen testing and PCR were negative. Blood cultures are pending. Vital Signs: Vital Signs Temp Pulse Resp BP Pulse Ox 98.8 F 98 26 H 128/71 H 90 11/27/20 04:00 11/27/20 05:30 11/27/20 05:30 11/27/20 05:00 11/27/20 05:30 Oxygen Flow Rate (L/min) 60 Oxygen Delivery Method Airvo Weight: 172 lb 2.896 oz Body Mass Index (BMI) 24.0 Intake & Output: Intake and Output for Last 24 Hours 11/25/20 11/26/20 11/27/20 23:59 23:59 23:59 Intake Total 4298.75 / 4538.75 4471.25 / 4471.25 1000 / 1000 Output Total 850 / 850 Balance 4298.75 / 4438.75 3621.25 / 3621.25 1000 / 1000 Lab / Micro Data Attestation: I reviewed the patient's lab results. Result Diagrams: 11/27/20 05:00 11/27/20 05:00 Labs: Laboratory Results - last 24 hr 11/26/20 11/26/20 11/26/20 06:20 06:20 06:20 WBC 21.4 H RBC 3.40 L Hgb 10.6 L Hct 32.2 L MCV 94.7 H MCH 31.2 MCHC 32.9 RDW Std Deviation 51.9 H RDW Coeff of Sukumar 14.9 H Plt Count 258 MPV 9.6 Immature Gran % (Auto) 1.100 H Neut % (Auto) 96.1 H Lymph % (Auto) 1.7 L [place] % (Auto) 0.8 Eos % (Auto) 0.2 Baso % (Auto) 0.1 Absolute Neuts (auto) 20.6 H Absolute Lymphs (auto) 0.36 L Nucleated RBC % 0 Sodium 139 Potassium 4.3 Chloride 108 H Carbon Dioxide 20.0 L Anion Gap 11 BUN 43 H Creatinine 1.57 H Estim Creat Clear Calc 41.30 Est GFR (MDRD) Af Amer 55 L Est GFR (MDRD) Non-Af 46 L BUN/Creatinine Ratio 27.4 H Glucose 95 Calcium 8.4 L Magnesium 2.2 Total Bilirubin Direct Bilirubin AST ALT Alkaline Phosphatase Total Protein Albumin Globulin Albumin/Globulin Ratio COVID-19 ([place]) 11/26/20 11/26/20 11/27/20 06:20 10:12 05:00 WBC RBC Hgb Hct MCV MCH MCHC RDW Std Deviation RDW Coeff of Sukumar Plt Count MPV Immature Gran % (Auto) Neut % (Auto) Lymph % (Auto) [place] % (Auto) Eos % (Auto) Baso % (Auto) Absolute Neuts (auto) Absolute Lymphs (auto) Nucleated RBC % Sodium 140 Potassium 4.2 Chloride 110 H Carbon Dioxide 20.0 L Anion Gap 10 BUN 31 H Creatinine 1.27 Estim Creat Clear Calc 51.06 Est GFR (MDRD) Af Amer 71 Est GFR (MDRD) Non-Af 58 L BUN/Creatinine Ratio 24.4 H Glucose 116 H Calcium 8.2 L Magnesium Total Bilirubin 0.70 0.50 Direct Bilirubin 0.24 AST 17 24 ALT 25 33 Alkaline Phosphatase 101 112 Total Protein 5.4 L 5.8 L Albumin 1.6 L 1.4 L Globulin 3.8 4.4 H Albumin/Globulin Ratio 0.3 L COVID-19 ([place]) Not Detected 11/27/20 05:00 WBC 19.7 H RBC 3.28 L Hgb 10.3 L Hct 30.9 L MCV 94.2 H MCH 31.4 MCHC 33.3 RDW Std Deviation 52.6 H RDW Coeff of Sukumar 14.9 H Plt Count 266 MPV 9.5 Immature Gran % (Auto) 1.400 H Neut % (Auto) 96.2 H Lymph % (Auto) 1.2 L [place] % (Auto) 1.0 Eos % (Auto) 0.1 Baso % (Auto) 0.1 Absolute Neuts (auto) 18.9 H Absolute Lymphs (auto) 0.24 L Nucleated RBC % 0 Sodium Potassium Chloride Carbon Dioxide Anion Gap BUN Creatinine Estim Creat Clear Calc Est GFR (MDRD) Af Amer Est GFR (MDRD) Non-Af BUN/Creatinine Ratio Glucose Calcium Magnesium Total Bilirubin Direct Bilirubin AST ALT Alkaline Phosphatase Total Protein Albumin Globulin Albumin/Globulin Ratio COVID-19 ([place]) Micro: Microbiology 11/26/20 14:20 Urine, Random Legionella Antigen - Final 11/26/20 14:20 Urine, Random Streptococcus pneumoniae Antigen (M - Final 11/25/20 12:05 Mucosa - Nose SARS-CoV-2 Antigen (Rapid) - Final Radiography Diagnostic Testing: Radiology Impression Chest CTA 11/26/20 09:42 IMPRESSION: No evidence of pulmonary embolism. Dense consolidation involving the right upper lobe as well as the right middle lobe. Mild increased markings at the left lung base and right lower lobe. Electronically Signed: Charanjit Smith MD at 10:46 EDT , Service support , Physical Exam Const alert, oriented x3 and no apparent distress General Appearance: cooperative HEENT normocephalic, head/scalp atraumatic and moist oral mucous membranes Eyes PERRL, EOMs intact bilaterally and conjunctivae normal Neck supple General: trachea midline Resp Effort and Inspection: tachypneic Auscultation: diminished lung sounds; Negative for rales, rhonchi or wheezes Cardio regular rate, regular rhythm, S1 normal heart sound and S2 normal heart sound GI normal to inspection, nondistended, normoactive bowel sounds Extremity no clubbing, cyanosis or edema Skin no rashes or lesions noted Neuro CN's II-XII intact bilaterally, moves all extremities and no focal motor deficits Psych cooperative and affect normal Charges/Coding Visit Charges Inpatient E&M: 36282 Subs Hosp L3
[2020-11-27] MEDS: Levothyroxine 75 MCG Tablet PO (06:13)
[2020-11-27] MEDS: Heparin Injection (Vial) 5,000 UNIT/ML VIAL 5000 UNIT SC ×3 (06:13→20:46)
[2020-11-27] MEDS: 0.9% Saline Lock 10 ML Syringe IV ×2 (06:13→09:24)
--- NOTE | 2020-11-27 07:22 | PN.HOSP_ITS ---
Subjective Subjective Seen and examined. He has no active complaints overnight. Review of systems otherwise negative. Patient is now on air for with 60 L/min flow and FiO2 of 70%. He has otherwise remained hemodynamically stable. Objective Data Objective Data Vital Signs: Vital Signs Temp Pulse Resp BP Pulse Ox 98.8 F 68 32 H 130/62 H 94 11/27/20 04:00 11/27/20 07:00 11/27/20 07:00 11/27/20 07:00 11/27/20 07:00 Oxygen Flow Rate (L/min) 60 Oxygen Delivery Method Airvo Weight: 175 lb 0.752 oz Body Mass Index (BMI) 24.0 Intake & Output: Intake and Output for Last 24 Hours 11/25/20 11/26/20 11/27/20 23:59 23:59 23:59 Intake Total 4298.75 / 4538.75 4471.25 / 4471.25 1000 / 1000 Output Total 850 / 850 375 / 375 Balance 4298.75 / 4438.75 3621.25 / 3621.25 625 / 625 Lab / Micro Data Result Diagrams: 11/27/20 05:00 11/27/20 05:00 Labs: Laboratory Results - last 24 hr 11/26/20 11/26/20 11/26/20 06:20 06:20 10:12 WBC RBC Hgb Hct MCV MCH MCHC RDW Std Deviation RDW Coeff of Sukumar Plt Count MPV Immature Gran % (Auto) Neut % (Auto) Lymph % (Auto) [place] % (Auto) Eos % (Auto) Baso % (Auto) Absolute Neuts (auto) Absolute Lymphs (auto) Nucleated RBC % Sodium Potassium Chloride Carbon Dioxide Anion Gap BUN Creatinine Estim Creat Clear Calc Est GFR (MDRD) Af Amer Est GFR (MDRD) Non-Af BUN/Creatinine Ratio Glucose Calcium Magnesium 2.2 Total Bilirubin 0.70 Direct Bilirubin 0.24 AST 17 ALT 25 Alkaline Phosphatase 101 Total Protein 5.4 L Albumin 1.6 L Globulin 3.8 Albumin/Globulin Ratio COVID-19 ([place]) Not Detected 11/27/20 11/27/20 05:00 05:00 WBC 19.7 H RBC 3.28 L Hgb 10.3 L Hct 30.9 L MCV 94.2 H MCH 31.4 MCHC 33.3 RDW Std Deviation 52.6 H RDW Coeff of Sukumar 14.9 H Plt Count 266 MPV 9.5 Immature Gran % (Auto) 1.400 H Neut % (Auto) 96.2 H Lymph % (Auto) 1.2 L [place] % (Auto) 1.0 Eos % (Auto) 0.1 Baso % (Auto) 0.1 Absolute Neuts (auto) 18.9 H Absolute Lymphs (auto) 0.24 L Nucleated RBC % 0 Sodium 140 Potassium 4.2 Chloride 110 H Carbon Dioxide 20.0 L Anion Gap 10 BUN 31 H Creatinine 1.27 Estim Creat Clear Calc 51.06 Est GFR (MDRD) Af Amer 71 Est GFR (MDRD) Non-Af 58 L BUN/Creatinine Ratio 24.4 H Glucose 116 H Calcium 8.2 L Magnesium Total Bilirubin 0.50 Direct Bilirubin AST 24 ALT 33 Alkaline Phosphatase 112 Total Protein 5.8 L Albumin 1.4 L Globulin 4.4 H Albumin/Globulin Ratio 0.3 L COVID-19 ([place]) Micro: Microbiology 11/26/20 14:20 Urine, Random Legionella Antigen - Final 11/26/20 14:20 Urine, Random Streptococcus pneumoniae Antigen (M - Final 11/25/20 12:05 Mucosa - Nose SARS-CoV-2 Antigen (Rapid) - Final Radiography Diagnostic Testing: Radiology Impression Chest CTA 11/26/20 09:42 IMPRESSION: No evidence of pulmonary embolism. Dense consolidation involving the right upper lobe as well as the right middle lobe. Mild increased markings at the left lung base and right lower lobe. Electronically Signed: Charanjit Smith MD at 10:46 EDT , Service support , Physical Exam Const alert, oriented x3 and no apparent distress Constitutional Narrative: Looks acutely ill General Appearance: cooperative Orientation / Consciousness: lethargic Exam Limitations: no limitations HEENT normocephalic and head/scalp atraumatic Head and Scalp: normocephalic Eyes PERRL, EOMs intact bilaterally and conjunctivae normal Neck no lymphadenopathy, supple and no JVD Resp Resp Narrative: Diminished breath sounds bibasilally. On AirVO 60 L/min of oxygen and FiO2 of 70% patient on 6 L of oxygen. Auscultation: diminished lung sounds; Negative for crackles, rales, rhonchi or wheezes Cardio regular rate, regular rhythm, S1 normal heart sound, S2 normal heart sound and no murmurs Cardio Narrative: tachycardia has resolved Rate: tachycardic GI normal to inspection, nondistended, normoactive bowel sounds, soft to palpation, non-tender and non-distended; Negative for hepatosplenomegaly Extremity normal to inspection, full ROM and no clubbing, cyanosis or edema Peripheral Pulses: Yes pulses 2+ throughout Skin no rashes or lesions noted Neuro oriented x3, no focal motor deficits and no sensory deficits noted Sensorium / Orientation: awake and alert Psych affect normal Appearance: appropriate Assessment & Plan Assessment/Plan (1) Severe sepsis: (2) BART (acute kidney injury): (3) Pneumonia: QUALIFIERS: Laterality: right Lung location: lower lobe of lung Pneumonia type: due to Pneumococcus Qualified Code(s): J13 - Pneumonia due to Streptococcus pneumoniae (4) Acute hypoxemic respiratory failure: PLAN: #Severe sepsis due to community acquired pneumonia * now on Airvo with 60L/min of oxygen and FiO2 of 70% * on IV vancomycin and IV cefepime * legionella urine antigen positive. COVID PCR negative. * CTA of the chest was negative for PE and showed dense consolidation of the RUL as well as right middle lobe * blood cultures pending * wbc down to 19.7 * ID on board still want to keep him in isolation and patient has been started on remdesivir due to concerns for covid * #Acute hypoxic respiratory failure due to pneumonia * CTA of chest as above * oxygen requirements as above now * Titrate oxygen to maintain saturation above 90%. * Breathing treatments with bronchodilators. * #BART: Improving. CR is down to 1.27 #Elevated D-dimer: CTA of the chest negative for PE #Hypertension * on amlodipine. 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
[2020-11-27] MEDS: Cefepime HCl 2 GM in 0.9% NS 100 ML Minibag Q8 IV ×2 (08:25→20:46)
[2020-11-27] MEDS: fentaNYL 100 MCG/2 ML Ampul 50 MCG IV (09:10)
[2020-11-27] MEDS: Midazolam 2 MG/2 ML Syringe 4 MG IV (09:10)
--- NOTE | 2020-11-27 09:20 | NURSING ---
Dr. Mckeon, this RN, and endoscopy staff at bedside for bronchoscopy procedure, Versed 2 mg IV and Fentanyl 50 mcg IV given at 0910, see Dr. Mckeon's procedure note, procedure complete by 0920, patient tolerated well, denies pain, drowsy, will cont to monitor.
[2020-11-27] MEDS: Vancomycin IV 500 MG/100 ML BAG 100 MG IV (09:33)
--- NOTE | 2020-11-27 09:39 | OP.BRONCH_ITS ---
Patient Name: Janes Gaitan Procedure Date: 11/27/2020 7:55 AM Date of : 1940 Age: 80 Procedure: Bronchoscopy Indications: Pneumonia, Diagnostic bronchoalveolar lavage Providers: Jayme Mckeon MD Medicines: Midazolam 2 mg IV, Fentanyl 50 mcg IV Complications: No immediate complications Procedure: Pre-Anesthesia Assessment: - A History and Physical has been performed. Patient meds and allergies have been reviewed. The risks and benefits of the procedure and the sedation options and risks were discussed with the patient. All questions were answered and informed consent was obtained. Patient identification and proposed procedure were verified prior to the procedure by the physician and the nurse in the procedure room. Mental Status Examination: alert and oriented. Airway Examination: normal oropharyngeal airway. Respiratory Examination: rhonchi. CV Examination: normal. ASA Grade Assessment: II - A patient with mild systemic disease. After reviewing the risks and benefits, the patient was deemed in satisfactory condition to undergo the procedure. The anesthesia plan was to use moderate sedation / analgesia (conscious sedation). Immediately prior to administration of medications, the patient was re-assessed for adequacy to receive sedatives. The heart rate, respiratory rate, oxygen saturations, blood pressure, adequacy of pulmonary ventilation, and response to care were monitored throughout the procedure. The physical status of the patient was re-assessed after the procedure. After I obtained informed consent, the scope was passed under direct vision. Throughout the procedure, the patient's blood pressure, pulse, and oxygen saturations were monitored continuously. The bronchoscope was introduced through the mouth and advanced to the tracheobronchial tree. The procedure was accomplished without difficulty. The patient tolerated the procedure well. Findings: The oropharynx appears normal. The larynx appears normal. The vocal cords appear normal. The subglottic space is normal. The trachea is of normal caliber. The wilda is sharp. The tracheobronchial tree was examined to at least the first subsegmental level. Bronchial mucosa and anatomy are normal; there are no endobronchial lesions, and no secretions. Bronchoalveolar lavage was performed in the right middle lobe of the lung and sent for cell count, bacterial culture, viral smears & culture, and fungal & AFB analysis. 60 mL of fluid were instilled. 30 mL were returned. The return was cloudy. There were no mucoid plugs in the return fluid. Impression: - Pneumonia - Bronchoalveolar lavage - The airway examination was normal. - Bronchoalveolar lavage was performed. Recommendation: - Await BAL results. Procedure Code(s): --- Professional --- 31334, Bronchoscopy, rigid or flexible, including fluoroscopic guidance, when performed; with bronchial alveolar lavage Diagnosis Code(s): --- Professional --- J18.9, Pneumonia, unspecified organism CPT copyright 2017 [employer]. All rights reserved. The codes documented in this report are preliminary and upon literacy teacher review may be revised to meet current compliance requirements. DO Jayme Cason MD 11/27/2020 9:38:46 AM This report has been signed electronically. Number of Addenda: 0 Note Initiated On: 11/27/2020 7:55 AM
--- NOTE | 2020-11-27 09:46 | FLU_PTH ---
PATIENT: KULWANT ANDRADE LOC: [facility]#:[id number] AGE/SX: 80/M ROOM: [facility] RE11/25/[address]: Dr. Javon Espino MD : 1940 BED: 1 DIS: 12/04/2020 SPEC #: [id number] RECD: 11/27/20 12:59 STATUS: JOURDAN REQ #: [id number] ARIEL: 11/27/20 09:[address]: Jayme Mckeon DEPT: CYTOLOGY RECD BY: Blanca Lino ENTERED: 11/27/20 13:00 SP TYPE: Fluid OTHR DR: MD Dr. Jayme Hanna DO Dr. Jeffrey Burkey, MD Dr. Nana Yaa Koram, MD Dr. Nicholas F Kotsonis, MD Dr. Robert Leininger, MD Christina Muller, [employer] Tissues: Bronchus, NOS Procedures: Special Stain Group II Special Stain Group I Surgery Specimen Level IV AFB Stain (control) Cytospin Fluid Comments: @ Ordering doctor for SSII edited from to [email or web address] Montero by CHARLES at 11/27/20 1359 @ Ordering doctor for SUIV edited from to [email or web address] Montero by CHARLES at 11/27/20 1359 @ Ordering doctor for CYSPIN edited from to [email or web address] Montero by CHARLES at 11/27/20 1359 @ Submitting doctor edited from to [email or web address] Montero by CHARLES at 11/27/20 1359 HEADER OPERATION: Bronchoscopy PRE-OP DIAGNOSIS: Hypoxia TISSUE SUBMITTED: Right middle lobe bronchial lavage fluid for cytology DIAGNOSIS CYTOLOGY Right middle lobe, bronchial lavage fluid (cytospin and cell block): Negative for malignant cells. Special stain for acid fast bacilli is negative for organisms; matched control is appropriate. BABATUNDE:thelma 11/28/2020 COMMENT Correlation with clinical, radiologic findings and appropriate follow up are necessary. CYTOLOGY STUDY Slides are reviewed. CYTOLOGY GROSS Received is 20 ml of mucoid red fluid labeled with the patient's name and and designated per the requisition as bronchial lavage. Submitted for cytology preparation including cell block. / thelma 11/27/2020 TC:5 CPT: 38001, 91038, 13664 ADDENDUM ADDENDUM ADDENDUM ADDENDUM ADDENDUM ADDENDUM ADDENDUM ADDENDUM ADDENDUM 11/30/2020 11:25 ADDENDUM 11/30/2020 11:25 ADDENDUM 11/30/2020 11:25 ADDENDUM 11/30/2020 11:25 ADDENDUM 11/30/2020 11:25 Special stain for fungi is positive for fungal organisms (yeast and pseudohyphae) consistent with Cristin species; matched control is appropriate. The findings may represent contaminant from mouth. SJ:thelma 11/30/2020 Case has been reviewed in consultation with Dr. Charles who concurs with the above diagnosis. IDC:AM
[2020-11-27] MEDS: amLODIPine 10 MG Tablet PO (09:54)
[2020-11-27] MEDS: predniSONE 20 MG Tablet 40 MG PO (09:55)
[2020-11-27] MEDS: Aspirin E.C. 81 MG Tablet PO (09:55)
[2020-11-27] MEDS: Pantoprazole Sodium 20 MG Tablet PO (09:55)
[2020-11-27 09:57] LABS: Acid Fast Stain SEE PATHOLOGY REPORT; Cytology, Body Fluid / CSF SEE PATHOLOGY REPORT
[2020-11-27] MEDS: Lidocaine 2% (5ml sdv) 5 ML VIAL.MPF (10:06)
[2020-11-27] MEDS: Lidocaine 2% Jelly 1 APPLIC Tube (10:06)
--- NOTE | 2020-11-27 10:24 | PCM.PN.ID ---
Physical Exam Narrative Feeling better, breathing improved even after bronch. Aches and sense of taste better. Less fatigue. Const alert General Appearance: cooperative Resp clear to auscultation bilaterally Resp Narrative: mild rhonchi Auscultation: diminished lung sounds Cardio Rate: tachycardic GI normal to inspection, nondistended, normoactive bowel sounds Extremity no clubbing, cyanosis or edema Skin no rashes or lesions noted ID ID: Route of nutrition/ use of supplements: [] Nutritional Intake: [] IV Site: [] Andrews Catheter: [] Assessment & Plan Assessment/Plan (1) Acute hypoxemic respiratory failure: (2) Pneumonia: QUALIFIERS: Pneumonia type: due to Pneumococcus Laterality: right Lung location: lower lobe of lung Qualified Code(s): J13 - Pneumonia due to Streptococcus pneumoniae (3) BART (acute kidney injury): (4) Severe sepsis: PLAN: severe sepsis with BART, hypoxia. Has been on 60mg daily prednisone for past 6 weeks, so is at risk for pneumocystis. - With one week of fatigue, dry cough, dyspnea, body aches, fever, and loss of taste, and now presenting with rapidly progressive hypoxic resp failure and lymphopenia, high concern for covid despite one negative pcr. Only received 1st dose covid vaccine 07/30/20. CT showed no PE. Bronch done this AM - Legionella Ag (+). Reports hives with levaquin 25-30 years ago. Similar reaction with erythromycin. Discussed options with him, we agree to try levaquin and monitor for reaction. - Stop vanc. Cont cefepime and remdesivir. BAL pcr for covid pending. - On pred taper - BART improving Will follow
[2020-11-27] MEDS: levoFLOXacin IV 500 MG/100 ML BAG 100 MG IV (11:40)
--- NOTE | 2020-11-27 11:45 | CASEMGMT ---
Palliative screening tool complete for Lace/Strata 3. Patient does not meet criteria at this time.
[2020-11-27 12:08] LABS: Red Cell Count/Body Fluid 3350 /mm3; White Blood Count/Body Fluid 650 /mm3
[2020-11-27 12:11] LABS: Appearance/Body Fluid SL CLDY; Color/Body Fluid PINK; Source- Body Fluid BRONCHIAL LAVAGE
[2020-11-27 13:12] LABS: Lymphocytes 3 %; Monocytes 10 %; Neutrophil (Segs) 82 %; Other Cell Type/BF 5 %
[2020-11-27 13:13] LABS: Body Fluid QC Type(s) BF1Q,BF2Q
[2020-11-28] VITALS (26 sets, daily range): BP systolic 104–133; BP diastolic 55–91; PULSE 95–120; RESP 16–32; TEMP 36.7–37.2; O2SAT 90–94
[2020-11-28] MEDS: Acetaminophen 325 MG Tablet 650 MG PO ×2 (03:23→20:40)
[2020-11-28 03:48] LABS: Absolute Neutrophil Count 19.8 X10^3/uL (2.0-7.7); Basophil# 0.04 X10^3/uL; Basophil% 0.2 % (0-1); Differential Indicated SCAN CRITERIA MET; Eosinophil# 0.01 X10^3/uL; Hematocrit 31.6 % (40-54); Hemoglobin 10.4 g/dL (13.0-16.5); Lymphocyte % 1.4 % (19-41); Mean Corp Hgb Conc 32.9 g/dL (32-36); Mean Platelet Vol. 9.7 fl (6.2-12.0); Monocyte# 0.19 X10^3/uL; Monocyte% 0.9 % (0-10); NRBC Flagged by Analyzer 0 % (0-5); Neutrophil % 94.5 % (47-70); POSITIVE DIFFERENTIAL YES; Platelet Count 303 K/mm3 (150-450); RBC Distribution Width CV 15.6 % (11.6-14.6); RBC Distribution Width SD 54.2 fl (35.1-43.9); Red Blood Count 3.36 M/mm3 (4.6-6.2)
[2020-11-28 04:05] LABS: ALB/GLOB Ratio 0.3 RATIO (0.9-2.4); AST(SGOT) 25 U/L (15-37); Alanine Aminotransfer ALT/SGPT 41 U/L (16-61); Albumin, Serum 1.4 g/dL (3.2-5.0); Alkaline Phosphatase 116 U/L (45-117); Anion Gap 9 (5-15); BUN 37 mg/dL (7-18); BUN/Creat Ratio 27.6 RATIO (10-20); Chloride 109 mmol/L (98-107); Creatinine, Serum 1.34 mg/dL (0.70-1.30); EST Glomerular Filtration Rate 55 mL/min (>60); Est Glom Filt Rate - Afr Amer 66 mL/min (>60); Estimated Creatinine Clearance 48.39 ml/min; Globulin 4.7 g/dL (2.2-4.2); Glucose 114 mg/dL (74-106); Potassium 4.1 mmol/L (3.5-5.1); Protein, Total 6.1 g/dL (6.4-8.2); Sodium Level 139 mmol/L (136-145)
--- NOTE | 2020-11-28 05:42 | PN.CC_ITS ---
Assessment & Plan Assessment/Plan (1) Acute hypoxemic respiratory failure: PLAN: RECOMMENDATIONS: 1. Continue Airvo heated high flow and wean FiO2 to maintain saturations at or above 90%. 2. Continue antimicrobials per ID recommendations. 3. Continue prednisone 40 mg daily. 4. Await results of BAL. 5. Continue appropriate ICU prophylaxis. IMPRESSIONS: 1. Acute hypoxemic respiratory failure Appears to be secondary to multilobar Legionella pneumonia. However, in light of the patient's clinical presentation and oxygenation status, bronchoscopy was performed on November 27. BAL fluid was sent for analysis. In the interim, continue to wean FiO2 to maintain oxygen saturations at or above 90%. Continue antimicrobials per ID recommendations. Consider gentle diuresis. 2. Severe sepsis Secondary to underlying pulmonary infectious etiology. Given that the patient has been on prednisone therapy now at 60 mg daily for the last 6 weeks, I would avoid abrupt cessation of his corticosteroids. Will continue prednisone at 40 mg daily to avoid any form of adrenal insufficiency. The patient is currently h emodynamically stable. Continue antimicrobials per ID recommendations. 3. Acute kidney injury Resolved. Most likely prerenal in etiology. Creatinine has improved with vo lume expansion. Continue to monitor urine output. No current indication for renal replacement therapy. 4. Positive autoimmune work-up There has been concern for a possible underlying autoimmune process in the past. The patient's PCP placed him on prednisone approximately 6 weeks ago. The patient was referred to rheumatology but has yet to be evaluated. 5. Hypertension/hypothyroidism/GERD Complicates care, management, recovery and prognosis. Continue home medications as indicated. CODE status: Discussed CODE status at length including difference between FULL code, DNR-CCA and DNR-CC status. Following discussions about the differences in these status, patient requested FULL CODE STATUS. This note was generated with Weiju dictation software. It may contain incorrect words, spelling, and punctuation that were not noted in checking the note before signing. Subjective Subjective The patient was seen and examined at the bedside this morning. Events from the last 24 hours have been reviewed. The patient is currently afebrile, hemodynamically stable and maintaining appropriate oxygen saturations on Airvo heated high flow oxygen with an FiO2 requirement of 55% and flow rate of 60 L/min. The patient is currently documented to be overall net +8.7 L for the hospital admission. The patient did tolerate bronchoscopy with bronchial alveolar lavage of the right middle lobe yesterday. Objective Data Objective Data The patient's most recent lab work, culture data and imaging studies have all been personally reviewed. Surface echocardiogram dated November 08 revealed normal LV size with an ejection fraction of 65%. Right ventricular systolic pressure was estimated to be 34 mmHg. Legionella urine antigen was positive. Streptococcus urinary antigen was negative. Both rapid coronavirus antigen testing and PCR were negative. Blood cultures are pending. Vital Signs: Vital Signs Temp Pulse Resp BP Pulse Ox 99 F 105 H 22 H 123/55 H 92 11/28/20 04:00 11/28/20 04:00 11/28/20 04:00 11/28/20 04:00 11/28/20 04:00 Oxygen Flow Rate (L/min) 60 Oxygen Delivery Method Airvo Weight: 175 lb 0.752 oz Body Mass Index (BMI) 24.0 Intake & Output: Intake and Output for Last 24 Hours 11/26/20 11/27/20 11/28/20 23:59 23:59 23:59 Intake Total 4471.25 / 4471.25 2404.5 / 2504.5 100 / 100 Output Total 850 / 850 1125 / 1675 550 / 550 Balance 3621.25 / 3621.25 1279.5 / 829.5 -450 / -450 Lab / Micro Data Attestation: I reviewed the patient's lab results. Result Diagrams: 11/28/20 03:30 11/28/20 03:30 Labs: Laboratory Results - last 24 hr 11/27/20 11/28/20 11/28/20 09:40 03:30 03:30 WBC 21.0 H RBC 3.36 L Hgb 10.4 L Hct 31.6 L MCV 94.0 MCH 31.0 MCHC 32.9 RDW Std Deviation 54.2 H RDW Coeff of Sukumar 15.6 H Plt Count 303 MPV 9.7 Immature Gran % (Auto) 3.000 H Neut % (Auto) 94.5 H Lymph % (Auto) 1.4 L [place] % (Auto) 0.9 Eos % (Auto) 0.0 Baso % (Auto) 0.2 Absolute Neuts (auto) 19.8 H Absolute Lymphs (auto) 0.30 L Nucleated RBC % 0 Sodium 139 Potassium 4.1 Chloride 109 H Carbon Dioxide 21.0 Anion Gap 9 BUN 37 H Creatinine 1.34 H Estim Creat Clear Calc 48.39 Est GFR (MDRD) Af Amer 66 Est GFR (MDRD) Non-Af 55 L BUN/Creatinine Ratio 27.6 H Glucose 114 H Calcium 9.0 Total Bilirubin 0.70 AST 25 ALT 41 Alkaline Phosphatase 116 Total Protein 6.1 L Albumin 1.4 L Globulin 4.7 H Albumin/Globulin Ratio 0.3 L Fluid Source BRONCHIAL LAVAGE Fluid Color PINK Fluid Appearance SL CLDY Fluid WBC 650 Fluid RBC 3350 Fluid Tot Cell Count TNP Fluid Neutrophils 82 Fluid Lymphocytes 3 Fluid Monocytes 10 Fluid Other Cells 5 Fl Pathologist Comment May follow Fluid Comment 2 Not Reportable Micro: Microbiology 11/27/20 09:40 Bronchial Lavage - Right Middle Lobe Gram Stain - Final 11/25/20 08:35 Blood Culture (Wb) - Anticubital Left Blood Culture - Preliminary No growth in 48 hours. 11/25/20 09:51 Blood Culture (Wb) - Anticubital Right Blood Culture - Preliminary No growth in 48 hours. 11/26/20 14:20 Urine, Random Legionella Antigen - Final 11/26/20 14:20 Urine, Random Streptococcus pneumoniae Antigen (M - Final 11/25/20 12:05 Mucosa - Nose SARS-CoV-2 Antigen (Rapid) - Final Physical Exam Const alert, oriented x3 and no apparent distress General Appearance: cooperative HEENT normocephalic, head/scalp atraumatic and moist oral mucous membranes Eyes PERRL, EOMs intact bilaterally and conjunctivae normal Neck supple General: trachea midline Resp Effort and Inspection: tachypneic Auscultation: diminished lung sounds; Negative for rales, rhonchi or wheezes Cardio regular rate, regular rhythm, S1 normal heart sound and S2 normal heart sound GI normal to inspection, nondistended, normoactive bowel sounds Extremity no clubbing, cyanosis or edema Skin no rashes or lesions noted Neuro CN's II-XII intact bilaterally, moves all extremities and no focal motor deficits Psych cooperative and affect normal Charges/Coding Visit Charges Inpatient E&M: 97305 Subs Hosp L3
--- NOTE | 2020-11-28 07:19 | PN.HOSP_ITS ---
Subjective Subjective Patient seen and examined. He had an uneventful night and has no complaints this morning. He remains on airflow with FiO2 of 55% and flow rate of 60 L/min. Review of systems otherwise negative. She had bronchoscopy with bronchoalveolar lavage of the right middle lobe done yesterday. Objective Data Objective Data Vital Signs: Vital Signs Temp Pulse Resp BP Pulse Ox 99 F 101 H 18 108/68 91 11/28/20 04:00 11/28/20 07:00 11/28/20 07:00 11/28/20 07:00 11/28/20 07:00 Oxygen Flow Rate (L/min) 60 Oxygen Delivery Method Airvo Weight: 177 lb 4.026 oz Body Mass Index (BMI) 24.0 Intake & Output: Intake and Output for Last 24 Hours 11/26/20 11/27/20 11/28/20 23:59 23:59 23:59 Intake Total 4471.25 / 4471.25 2404.5 / 2504.5 220 / 220 Output Total 850 / 850 1125 / 1675 800 / 800 Balance 3621.25 / 3621.25 1279.5 / 829.5 -580 / -580 Lab / Micro Data Result Diagrams: 11/28/20 03:30 11/28/20 03:30 Labs: Laboratory Results - last 24 hr 11/27/20 11/28/20 11/28/20 09:40 03:30 03:30 WBC 21.0 H RBC 3.36 L Hgb 10.4 L Hct 31.6 L MCV 94.0 MCH 31.0 MCHC 32.9 RDW Std Deviation 54.2 H RDW Coeff of Sukumar 15.6 H Plt Count 303 MPV 9.7 Immature Gran % (Auto) 3.000 H Neut % (Auto) 94.5 H Lymph % (Auto) 1.4 L [place] % (Auto) 0.9 Eos % (Auto) 0.0 Baso % (Auto) 0.2 Absolute Neuts (auto) 19.8 H Absolute Lymphs (auto) 0.30 L Nucleated RBC % 0 Sodium 139 Potassium 4.1 Chloride 109 H Carbon Dioxide 21.0 Anion Gap 9 BUN 37 H Creatinine 1.34 H Estim Creat Clear Calc 48.39 Est GFR (MDRD) Af Amer 66 Est GFR (MDRD) Non-Af 55 L BUN/Creatinine Ratio 27.6 H Glucose 114 H Calcium 9.0 Total Bilirubin 0.70 AST 25 ALT 41 Alkaline Phosphatase 116 Total Protein 6.1 L Albumin 1.4 L Globulin 4.7 H Albumin/Globulin Ratio 0.3 L Fluid Source BRONCHIAL LAVAGE Fluid Color PINK Fluid Appearance SL CLDY Fluid WBC 650 Fluid RBC 3350 Fluid Tot Cell Count TNP Fluid Neutrophils 82 Fluid Lymphocytes 3 Fluid Monocytes 10 Fluid Other Cells 5 Fl Pathologist Comment May follow Fluid Comment 2 Not Reportable Micro: Microbiology 11/27/20 09:40 Bronchial Lavage - Right Middle Lobe Gram Stain - Final 11/25/20 08:35 Blood Culture (Wb) - Anticubital Left Blood Culture - Preliminary No growth in 48 hours. 11/25/20 09:51 Blood Culture (Wb) - Anticubital Right Blood Culture - Preliminary No growth in 48 hours. 11/26/20 14:20 Urine, Random Legionella Antigen - Final 11/26/20 14:20 Urine, Random Streptococcus pneumoniae Antigen (M - Final 11/25/20 12:05 Mucosa - Nose SARS-CoV-2 Antigen (Rapid) - Final Physical Exam Const alert, oriented x3 and no apparent distress General Appearance: cooperative Orientation / Consciousness: lethargic Exam Limitations: no limitations HEENT normocephalic and head/scalp atraumatic Head and Scalp: normocephalic Eyes PERRL, EOMs intact bilaterally and conjunctivae normal Neck no lymphadenopathy, supple and no JVD Resp Resp Narrative: Diminished breath sounds bibasilally. On AirVO 55 L/min of oxygen and FiO2 of 60% Auscultation: diminished lung sounds; Negative for crackles, rales, rhonchi or wheezes Cardio regular rate, regular rhythm, S1 normal heart sound, S2 normal heart sound and no murmurs Rate: tachycardic GI normal to inspection, nondistended, normoactive bowel sounds, soft to palpation, non-tender and non-distended; Negative for hepatosplenomegaly Extremity normal to inspection, full ROM and no clubbing, cyanosis or edema Peripheral Pulses: Yes pulses 2+ throughout Skin no rashes or lesions noted Neuro oriented x3, no focal motor deficits and no sensory deficits noted Sensorium / Orientation: awake and alert Psych affect normal Appearance: appropriate Assessment & Plan Assessment/Plan (1) Severe sepsis: (2) BART (acute kidney injury): (3) Pneumonia: QUALIFIERS: Laterality: right Lung location: lower lobe of lung Pneumonia type: due to Pneumococcus Qualified Code(s): J13 - Pneumonia due to Streptococcus pneumoniae (4) Acute hypoxemic respiratory failure: PLAN: #Severe sepsis due to community acquired pneumonia * remains on AirVO * on IV vancomycin and IV cefepime * legionella urine antigen positive. COVID PCR negative. * CTA of the chest was negative for PE and showed dense consolidation of the RUL as well as right middle lobe * had bronchoscopy today with BAL of right middle lobe; fluid analysis pending * blood cultures pending * wbc is 21 today * ID on board still want to keep him in isolation and patient has been started on remdesivir due to concerns for covid * #Acute hypoxic respiratory failure due to pneumonia * CTA of chest as above * oxygen requirements as above now * Titrate oxygen to maintain saturation above 90%. * Breathing treatments with bronchodilators. * s/p bronchoscopy * #BART: CR has trended up slightly to 1.34 today. Will monitor #Hypertension * on amlodipine and lisinopril * #Hypothyroidism: On Synthroid #GERD: On PPI #History of pulmonary nodule * Recently saw the sulfuric acid plant supervisor in the office on November 07 and at that time said since receiving his Covid vaccination, he has been getting short of breath. He also had a positive autoimmune screen dating back to 2019 with positive antidsDNA with concern for underlying SLE * To follow-up with pulmonology on outpatient basis * #Probable autoimmune disorder * had positive autoimmune screen on outpatient basis and also had positive antidsDNA concerning for SLE back in July 2018. I spoke to his PCP Dr. Wilkerson today per our discussion, he had thought that patient may have had polymyalgia rheumatica and that is why patient was started on steroids. He also tested patient for myasthenia gravis but these tests were negative. 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 * on PO prednisone * antimuscarinic antibody test and acetyl choline antibody test were negative for myasthenia gravis. * DVT prophylaxis: Heparin Charges/Coding Visit Charges Inpatient E&M: 22680 Subs Hosp L3
[2020-11-28] MEDS: Levothyroxine 75 MCG Tablet PO (07:32)
[2020-11-28] MEDS: Heparin Injection (Vial) 5,000 UNIT/ML VIAL 5000 UNIT SC ×3 (07:32→20:40)
[2020-11-28] MEDS: Aspirin E.C. 81 MG Tablet PO (08:20)
[2020-11-28] MEDS: predniSONE 20 MG Tablet 40 MG PO (08:20)
[2020-11-28] MEDS: levoFLOXacin IV 500 MG/100 ML BAG 100 MG IV (08:20)
[2020-11-28] MEDS: Pantoprazole Sodium 20 MG Tablet PO (08:20)
[2020-11-28] MEDS: 0.9% Saline Lock 10 ML Syringe IV (08:20)
[2020-11-28] MEDS: Furosemide 40 MG/4 ML Vial IV (08:20)
[2020-11-28] MEDS: amLODIPine 10 MG Tablet PO (08:20)
[2020-11-28] MEDS: Cefepime HCl 2 GM in 0.9% NS 100 ML Minibag Q8 IV (10:02)
[2020-11-28 13:26] LABS: Pathologist Comment/Body Fluid Reviewed
--- NOTE | 2020-11-28 13:42 | PCM.PN.ID ---
Physical Exam Narrative Feeling much better, breathing improved, minimal sputum, no fever Const alert and no apparent distress General Appearance: cooperative Resp clear to auscultation bilaterally Auscultation: diminished lung sounds Cardio regular rate and regular rhythm GI normal to inspection, nondistended, normoactive bowel sounds Skin no rashes or lesions noted ID ID: Route of nutrition/ use of supplements: [] Nutritional Intake: [] IV Site: [] Andrews Catheter: [] Assessment & Plan Assessment/Plan (1) Acute hypoxemic respiratory failure: (2) Pneumonia: QUALIFIERS: Pneumonia type: due to Pneumococcus Laterality: right Lung location: lower lobe of lung Qualified Code(s): J13 - Pneumonia due to Streptococcus pneumoniae (3) BART (acute kidney injury): (4) Severe sepsis: PLAN: severe sepsis with BART, hypoxia. Has been on 60mg daily prednisone for past 6 weeks, so is at risk for pneumocystis. - With one week of fatigue, dry cough, dyspnea, body aches, fever, and loss of taste, and now presenting with rapidly progressive hypoxic resp failure and lymphopenia, high concern for covid despite one negative pcr. Only received 1st dose covid vaccine 07/30/20. CT showed no PE. Bronch done 11/27. - Legionella Ag (+). Reports hives with levaquin 25-30 years ago. Similar reaction with erythromycin. So far tolerating levaquin well. - Stop cefepime cefepime and cont remdesivir. - On pred taper - BART improved - O2 dramatically improved, feeling better Will follow, d/w nursing
--- NOTE | 2020-11-28 15:05 | CASEMGMT ---
Addendum entered by Gayla Means 11/28/20 15:21: Pt states he wishes to start using [facility] pharmacy for all of his medications and would like all of his prescriptions transferred to [facility]. Call placed to Sandie @ the retail pharmacy. She states she is not sure if they are a preferred provided for [employer] and recommended pt call the customer service # on the back of his card to inquire about this. Pt made aware of same and voices understanding. He states his daughter manages insurance issues and he would call and have her check into this before transferring rx's to [facility]. Original Note: RN CM DEPALLETIZER OPERATOR CM to room to meet with patient for initial transition planning/care coordination assessment. RN CM introduced self and role at [facility]. Pt voices understanding and consents to assessment at this time. Pt resting in bed in no distress at this time. Pt is A/O at this time and answers all questions appropriately. Care providers, pharmacy, and demographics verified/updated at this time. PCP: Dr Wilkerson. Pt states wishes to switch to a different PCP. Pt provided w/list of local PCP's. Specialists: Dr Mckeon--pulmonology, Dr Michelle--cardiology Preferred Pharmacy: [facility]. Insurance: [employer] MCR Prescription Benefit: Yes Living Will/HPOA: Pt has LW but does not currently have HCPOA. Pt made aware that he can contact as an out-pt and make appt in the future if he decides he would like to talk with someone about this or would like to utilize [facility] social work for advanced directive completion once he is out of COVID precautions. Given Buildings And Grounds Coordinator Rac card with information and contact number. Pt expresses understanding. LNOK: DaughterLuna, who lives in [place]. Daughter, Jackie, who lives in [place]. Living Arrangements: Lives alone in one-story home w/ramp entrance. Independent w/ADL's and IADL's. Pt manages his appts and medications. Transportation: Pt states drives self and states no transportation concerns at this time. DaughterLuna, can assist w/transportation, if needed. DME: Denies using any DME and denies needs. Pt aware he may qualify for O2 @ discharge. Pt was provided with list of DME providers consistent with the patient's preferred geographic region, medical needs, and insurance network. The pt's preferred provider is [facility]. [facility] has the following DME available, but does not use: RTS, cane, walker HHC/SNF: No history of either. Denies needs for HHC or therapy. No needs identified. Pt wishes to return home and states has no concerns with going home at time of discharge. CM to follow for home oxygen needs and any further discharge planning/needs. Pt voices no further concerns/needs at this time. Advised pt to ask for CM if any further questions/concerns/needs arise. Voices understanding. PLAN: Home w/discharge plans in place. CM to follow for any O2 needs @ discharge. Sakina GREENE RN CM
--- NOTE | 2020-11-28 18:01 | NURSING ---
pt has decreased appetite, poor nutritional intake, ensure ordered.
[2020-11-28] MEDS: MELATONIN 3 MG TABLET PO (20:41)
[2020-11-29] VITALS (13 sets, daily range): BP systolic 107–138; BP diastolic 58–78; PULSE 63–129; RESP 18–22; TEMP 36.3–37.2; O2SAT 90–94
[2020-11-29 02:45] LABS: Absolute Lymphocyte Count 0.46 X10^3/uL (0.83-4.51); Absolute Neutrophil Count 18.6 X10^3/uL (2.0-7.7); Basophil# 0.05 X10^3/uL; Basophil% 0.2 % (0-1); Eosinophil# 0.01 X10^3/uL; Hematocrit 33.2 % (40-54); Hemoglobin 11.1 g/dL (13.0-16.5); Lymphocyte # 0.46 X10^3/ul (0.83-4.51); Lymphocyte % 2.3 % (19-41); Mean Corp Hgb Conc 33.4 g/dL (32-36); Mean Corpuscular Hgb 31.2 pg (27.0-32.0); Mean Corpuscular Volume 93.3 fL (80-94); Mean Platelet Vol. 10.2 fl (6.2-12.0); NRBC Flagged by Analyzer 0 % (0-5); Neutrophil # 18.62 X10^3/uL (2.7-7.7); Neutrophil % 93.1 % (47-70); POSITIVE DIFFERENTIAL YES; Platelet Count 358 K/mm3 (150-450); RBC Distribution Width CV 15.8 % (11.6-14.6); RBC Distribution Width SD 53.9 fl (35.1-43.9); Red Blood Count 3.56 M/mm3 (4.6-6.2)
[2020-11-29 02:47] LABS: Differential Indicated SCAN CRITERIA MET
[2020-11-29 03:03] LABS: ALB/GLOB Ratio 0.3 RATIO (0.9-2.4); AST(SGOT) 28 U/L (15-37); Alanine Aminotransfer ALT/SGPT 44 U/L (16-61); Albumin, Serum 1.4 g/dL (3.2-5.0); Alkaline Phosphatase 125 U/L (45-117); Anion Gap 9 (5-15); BUN 45 mg/dL (7-18); BUN/Creat Ratio 32.1 RATIO (10-20); Calcium,Total 9.3 mg/dL (8.5-10.1); Chloride 109 mmol/L (98-107); EST Glomerular Filtration Rate 52 mL/min (>60); Est Glom Filt Rate - Afr Amer 63 mL/min (>60); Estimated Creatinine Clearance 46.32 ml/min; Globulin 5.2 g/dL (2.2-4.2); Glucose 128 mg/dL (74-106); Potassium 3.9 mmol/L (3.5-5.1); Protein, Total 6.6 g/dL (6.4-8.2); Sodium Level 139 mmol/L (136-145)
[2020-11-29 03:04] LABS: Differential Comment SCANNED
[2020-11-29] MEDS: Heparin Injection (Vial) 5,000 UNIT/ML VIAL 5000 UNIT SC ×3 (05:24→22:21)
[2020-11-29] MEDS: Levothyroxine 75 MCG Tablet PO (05:24)
--- NOTE | 2020-11-29 06:24 | PCM.PN.INT ---
Assessment & Plan Assessment/Plan (1) Acute hypoxemic respiratory failure: PLAN: RECOMMENDATIONS: 1. Continue to wean supplemental oxygen to maintain saturations at or above 90%. 2. Continue antimicrobials per ID recommendations. 3. Continue prednisone 40 mg daily. 4. Continue appropriate prophylaxis. 5. The patient is medically stable for transfer out of the intensive care unit. IMPRESSIONS: 1. Acute hypoxemic respiratory failure Appears to be secondary to multilobar Legionella pneumonia. However, in light of the patient's clinical presentation and oxygenation status, bronchoscopy was performed on November 27. BAL fluid was sent for analysis. In the interim, continue to wean supplemental oxygen to maintain saturations at or above 90%. Continue antimicrobials per ID recommendations. 2. Severe sepsis Secondary to underlying pulmonary infectious etiology. Given that the patient has been on prednisone therapy now at 60 mg daily for the last 6 weeks, I would avoid abrupt cessation of his corticosteroids. Will continue prednisone at 40 mg daily to avoid any form of adrenal insufficiency. The patient is currently hemodynamically stable. Continue antimicrobials per ID recommendations. 3. Acute kidney injury Resolved. Most likely prerenal in etiology. Creatinine has improved with volume expansion. Continue to monitor urine output. No current indication for renal replacement therapy. 4. Positive autoimmune work-up There has been concern for a possible underlying autoimmune process in the past. The patient's PCP placed him on prednisone approximately 6 weeks ago. The patient was referred to rheumatology but has yet to be evaluated. 5. Hypertension/hypothyroidism/GERD Complicates care, management, recovery and prognosis. Continue home medications as indicated. CODE status: Discussed CODE status at length including difference between FULL code, DNR-CCA and DNR-CC status. Following discussions about the differences in these status, patient requested FULL CODE STATUS. This note was generated with Sentient dictation software. It may contain incorrect words, spelling, and punctuation that were not noted in checking the note before signing. Subjective Subjective The patient was seen and examined at the bedside this morning. Events from the last 24 hours have been reviewed. The patient is currently afebrile, hemodynamically stable and maintaining appropriate oxygen saturations on 6 L/min via nasal cannula. The patient is currently documented to be overall net +7.5 L for the hospital admission. Objective Data Objective Data The patient's most recent lab work, culture data and imaging studies have all been personally reviewed. Surface echocardiogram dated Giulia 10 revealed normal LV size with an ejection fraction of 65%. Right ventricular systolic pressure was estimated to be 34 mmHg. Legionella urine antigen was positive. Streptococcus urinary antigen was negative. Both rapid coronavirus antigen testing and PCR were negative. Blood cultures have shown no growth to date. Viral and fungal cultures are pending. Right middle lobe BAL was positive for alpha hemolytic Streptococcus. Vital Signs: Vital Signs Temp Pulse Resp BP Pulse Ox 99 F 109 H 18 138/68 H 94 11/29/20 04:00 11/29/20 04:00 11/29/20 04:00 11/29/20 04:00 11/29/20 04:00 Oxygen Flow Rate (L/min) 6 Oxygen Delivery Method Nasal Cannula Weight: 177 lb 14.609 oz Body Mass Index (BMI) 24.0 Intake & Output: Intake and Output for Last 24 Hours 11/27/20 11/28/20 11/29/20 23:59 23:59 23:59 Intake Total 2404.5 / 2504.5 1130 / 1130 100 / 100 Output Total 1125 / 1675 2450 / 2700 500 / 500 Balance 1279.5 / 829.5 -1320 / -1570 -400 / -400 Lab / Micro Data Attestation: I reviewed the patient's lab results. Result Diagrams: 11/29/20 02:30 11/29/20 02:30 Labs: Laboratory Results - last 24 hr 11/27/20 11/27/20 11/29/20 09:40 09:40 02:30 WBC RBC Hgb Hct MCV MCH MCHC RDW Std Deviation RDW Coeff of Sukumar Plt Count MPV Immature Gran % (Auto) Neut % (Auto) Lymph % (Auto) [place] % (Auto) Eos % (Auto) Baso % (Auto) Absolute Neuts (auto) Absolute Lymphs (auto) Nucleated RBC % Differential Comment Sodium 139 Potassium 3.9 Chloride 109 H Carbon Dioxide 21.0 Anion Gap 9 BUN 45 H Creatinine 1.40 H Estim Creat Clear Calc 46.32 Est GFR (MDRD) Af Amer 63 Est GFR (MDRD) Non-Af 52 L BUN/Creatinine Ratio 32.1 H Glucose 128 H Calcium 9.3 Total Bilirubin 0.80 AST 28 ALT 44 Alkaline Phosphatase 125 H Total Protein 6.6 Albumin 1.4 L Globulin 5.2 H Albumin/Globulin Ratio 0.3 L Fl Pathologist Comment Reviewed Acid Fast Stain SEE PATHOLOGY REPORT Miscellaneous Cytology SEE PATHOLOGY REPORT 11/29/20 02:30 WBC 20.0 H RBC 3.56 L Hgb 11.1 L Hct 33.2 L MCV 93.3 MCH 31.2 MCHC 33.4 RDW Std Deviation 53.9 H RDW Coeff of Sukumar 15.8 H Plt Count 358 MPV 10.2 Immature Gran % (Auto) 3.400 H Neut % (Auto) 93.1 H Lymph % (Auto) 2.3 L [place] % (Auto) 1.0 Eos % (Auto) 0.0 Baso % (Auto) 0.2 Absolute Neuts (auto) 18.6 H Absolute Lymphs (auto) 0.46 L Nucleated RBC % 0 Differential Comment SCANNED Sodium Potassium Chloride Carbon Dioxide Anion Gap BUN Creatinine Estim Creat Clear Calc Est GFR (MDRD) Af Amer Est GFR (MDRD) Non-Af BUN/Creatinine Ratio Glucose Calcium Total Bilirubin AST ALT Alkaline Phosphatase Total Protein Albumin Globulin Albumin/Globulin Ratio Fl Pathologist Comment Acid Fast Stain Miscellaneous Cytology Micro: Microbiology 11/27/20 09:40 Bronchial Lavage - Right Middle Lobe Gram Stain - Final 11/27/20 09:40 Bronchial Lavage - Right Middle Lobe Respiratory Culture - Preliminary Alpha Hemolytic Streptococcus 11/25/20 08:35 Blood Culture (Wb) - Anticubital Left Blood Culture - Preliminary No growth in 48 hours. 11/25/20 09:51 Blood Culture (Wb) - Anticubital Right Blood Culture - Preliminary No growth in 48 hours. 11/26/20 14:20 Urine, Random Legionella Antigen - Final 11/26/20 14:20 Urine, Random Streptococcus pneumoniae Antigen (M - Final 11/25/20 12:05 Mucosa - Nose SARS-CoV-2 Antigen (Rapid) - Final Physical Exam Const alert, oriented x3 and no apparent distress General Appearance: cooperative HEENT normocephalic, head/scalp atraumatic and moist oral mucous membranes Eyes PERRL, EOMs intact bilaterally and conjunctivae normal Neck supple General: trachea midline Resp Auscultation: diminished lung sounds; Negative for rales, rhonchi or wheezes Cardio regular rate, regular rhythm, S1 normal heart sound and S2 normal heart sound GI normal to inspection, nondistended, normoactive bowel sounds Extremity no clubbing, cyanosis or edema Skin no rashes or lesions noted Neuro CN's II-XII intact bilaterally, moves all extremities and no focal motor deficits Psych cooperative and affect normal Charges/Coding Visit Charges Inpatient E&M: 33017 Subs Hosp L2
--- NOTE | 2020-11-29 07:38 | PN.HOSP_ITS ---
Subjective Subjective Patient seen and examined. He had an uneventful night. He has no complaints this morning review of systems otherwise negative. He has been weaned down to oxygen by nasal cannula. Objective Data Objective Data Vital Signs: Vital Signs Temp Pulse Resp BP Pulse Ox 99 F 109 H 18 138/68 H 90 11/29/20 04:00 11/29/20 04:00 11/29/20 04:00 11/29/20 04:00 11/29/20 06:53 Oxygen Flow Rate (L/min) 7 Oxygen Delivery Method Nasal Cannula Weight: 177 lb 14.609 oz Body Mass Index (BMI) 24.0 Intake & Output: Intake and Output for Last 24 Hours 11/27/20 11/28/20 11/29/20 23:59 23:59 23:59 Intake Total 2404.5 / 2504.5 1130 / 1130 100 / 100 Output Total 1125 / 1675 2450 / 2700 500 / 500 Balance 1279.5 / 829.5 -1320 / -1570 -400 / -400 Lab / Micro Data Result Diagrams: 11/29/20 02:30 11/29/20 02:30 Labs: Laboratory Results - last 24 hr 11/27/20 11/27/20 11/29/20 09:40 09:40 02:30 WBC RBC Hgb Hct MCV MCH MCHC RDW Std Deviation RDW Coeff of Sukumar Plt Count MPV Immature Gran % (Auto) Neut % (Auto) Lymph % (Auto) [place] % (Auto) Eos % (Auto) Baso % (Auto) Absolute Neuts (auto) Absolute Lymphs (auto) Nucleated RBC % Differential Comment Sodium 139 Potassium 3.9 Chloride 109 H Carbon Dioxide 21.0 Anion Gap 9 BUN 45 H Creatinine 1.40 H Estim Creat Clear Calc 46.32 Est GFR (MDRD) Af Amer 63 Est GFR (MDRD) Non-Af 52 L BUN/Creatinine Ratio 32.1 H Glucose 128 H Calcium 9.3 Total Bilirubin 0.80 AST 28 ALT 44 Alkaline Phosphatase 125 H Total Protein 6.6 Albumin 1.4 L Globulin 5.2 H Albumin/Globulin Ratio 0.3 L Fl Pathologist Comment Reviewed Acid Fast Stain SEE PATHOLOGY REPORT Miscellaneous Cytology SEE PATHOLOGY REPORT 11/29/20 02:30 WBC 20.0 H RBC 3.56 L Hgb 11.1 L Hct 33.2 L MCV 93.3 MCH 31.2 MCHC 33.4 RDW Std Deviation 53.9 H RDW Coeff of Sukumar 15.8 H Plt Count 358 MPV 10.2 Immature Gran % (Auto) 3.400 H Neut % (Auto) 93.1 H Lymph % (Auto) 2.3 L [place] % (Auto) 1.0 Eos % (Auto) 0.0 Baso % (Auto) 0.2 Absolute Neuts (auto) 18.6 H Absolute Lymphs (auto) 0.46 L Nucleated RBC % 0 Differential Comment SCANNED Sodium Potassium Chloride Carbon Dioxide Anion Gap BUN Creatinine Estim Creat Clear Calc Est GFR (MDRD) Af Amer Est GFR (MDRD) Non-Af BUN/Creatinine Ratio Glucose Calcium Total Bilirubin AST ALT Alkaline Phosphatase Total Protein Albumin Globulin Albumin/Globulin Ratio Fl Pathologist Comment Acid Fast Stain Miscellaneous Cytology Micro: Microbiology 11/27/20 09:40 Bronchial Lavage - Right Middle Lobe Gram Stain - Final 11/27/20 09:40 Bronchial Lavage - Right Middle Lobe Respiratory Culture - Preliminary Alpha Hemolytic Streptococcus 11/25/20 08:35 Blood Culture (Wb) - Anticubital Left Blood Culture - Preli minary No growth in 48 hours. 11/25/20 09:51 Blood Culture (Wb) - Anticubital Right Blood Culture - Preliminary No growth in 48 hours. 11/26/20 14:20 Urine, Random Legionella Antigen - Final 11/26/20 14:20 Urine, Random Streptococcus pneumoniae Antigen (M - Final 11/25/20 12:05 Mucosa - Nose SARS-CoV-2 Antigen (Rapid) - Final Physical Exam Const alert, oriented x3 and no apparent distress Constitutional Narrative: Looks acutely ill General Appearance: cooperative Orientation / Consciousness: lethargic Exam Limitations: no limitations HEENT normocephalic and head/scalp atraumatic Head and Scalp: normocephalic Eyes PERRL, EOMs intact bilaterally and conjunctivae normal Neck no lymphadenopathy, supple and no JVD Resp normal respiratory effort, no retractions, no use of accessory muscles and clear to auscultation bilaterally Resp Narrative: Diminished breath sounds bibasilally. On 6L of oxygen by nasal canula Auscultation: diminished lung sounds; Negative for crackles, rales, rhonchi or wheezes Cardio regular rate, regular rhythm, S1 normal heart sound, S2 normal heart sound and no murmurs Rate: tachycardic GI normal to inspection, nondistended, normoactive bowel sounds, soft to palpation, non-tender and non-distended; Negative for hepatosplenomegaly Extremity normal to inspection, full ROM and no clubbing, cyanosis or edema Peripheral Pulses: Yes pulses 2+ throughout Skin no rashes or lesions noted Neuro oriented x3, no focal motor deficits and no sensory deficits noted Sensorium / Orientation: awake and alert Psych affect normal Appearance: appropriate Assessment & Plan Assessment/Plan (1) Severe sepsis: (2) BART (acute kidney injury): (3) Pneumonia: QUALIFIERS: Pneumonia type: due to Pneumococcus Laterality: right Lung location: lower lobe of lung Qualified Code(s): J13 - Pneumonia due to Streptococcus pneumoniae (4) Acute hypoxemic respiratory failure: PLAN: #Severe sepsis due to community acquired pneumonia * now down to 6L of oxygen by nasal canula * on IV vancomycin and IV cefepime as well as levofloxacin * legionella urine antigen positive. COVID PCR negative. * CTA of the chest was negative for PE and showed dense consolidation of the RUL as well as right middle lobe * BAL growing alpha hemolyticus strep * wbc is 20 today. * #Acute hypoxic respiratory failure due to pneumonia * CTA of chest as above * oxygen requirements as above now * Titrate oxygen to maintain saturation above 90%. * Breathing treatments with bronchodilators. * s/p bronchoscopy * #BART: CR has trended up slightly to 1.40 today. Will monitor and hydrate gently as needed. #Hypertension * on amlodipine and lisinopril * #Hypothyroidism: On Synthroid #GERD: On PPI #History of pulmonary nodule * Recently saw the transition coach in the office on November 07 and at that time said since receiving his Covid vaccination, he has been getting short of breath. He also had a positive autoimmune screen dating back to 2019 with positive antidsDNA with concern for underlying SLE * To follow-up with pulmonology on outpatient basis * #Probable autoimmune disorder * had positive autoimmune screen on outpatient basis and also had positive antidsDNA concerning for SLE back in July 2018. I spoke to his PCP Dr. Wilkerson today per our discussion, he had thought that patient may have had polymyalgia rheumatica and that is why patient was started on steroids. He also tested patient for myasthenia gravis but these tests were negative. 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 * on PO prednisone * antimuscarinic antibody test and acetyl choline antibody test were negative for myasthenia gravis. * DVT prophylaxis: Heparin Charges/Coding Visit Charges Inpatient E&M: 65595 Subs Hosp L3
[2020-11-29] MEDS: Aspirin E.C. 81 MG Tablet PO (08:55)
[2020-11-29] MEDS: amLODIPine 10 MG Tablet PO (08:55)
[2020-11-29] MEDS: Pantoprazole Sodium 20 MG Tablet PO (08:55)
[2020-11-29] MEDS: predniSONE 20 MG Tablet 40 MG PO (08:55)
[2020-11-29] MEDS: 0.9% Saline Lock 10 ML Syringe IV ×2 (08:56→14:32)
[2020-11-29] MEDS: levoFLOXacin IV 500 MG/100 ML BAG 100 MG IV (08:56)
[2020-11-29] MEDS: Metoprolol Tartrate 5 MG/5 ML Vial 2.5 MG IV (12:45)
[2020-11-30] VITALS (12 sets, daily range): BP systolic 106–132; BP diastolic 60–73; PULSE 56–123; RESP 15–18; TEMP 36.3–36.6; O2SAT 91–94
[2020-11-30 05:56] LABS: Hematocrit 32.6 % (40-54); Hemoglobin 10.7 g/dL (13.0-16.5); Mean Corp Hgb Conc 32.8 g/dL (32-36); Mean Corpuscular Hgb 30.7 pg (27.0-32.0); Mean Corpuscular Volume 93.4 fL (80-94); Mean Platelet Vol. 10.3 fl (6.2-12.0); POSITIVE COUNT YES; POSITIVE MORPHOLOGY YES; Platelet Count 412 K/mm3 (150-450); RBC Distribution Width CV 15.9 % (11.6-14.6); RBC Distribution Width SD 54.5 fl (35.1-43.9); Red Blood Count 3.49 M/mm3 (4.6-6.2)
[2020-11-30 06:00] LABS: Differential Indicated MANUAL DIFF
[2020-11-30] MEDS: Levothyroxine 75 MCG Tablet PO (06:19)
[2020-11-30] MEDS: Heparin Injection (Vial) 5,000 UNIT/ML VIAL 5000 UNIT SC ×3 (06:19→23:05)
[2020-11-30 06:21] LABS: Neutrophil-Band 1 % (0-5); Neutrophil-Segmented 91 % (47-70)
[2020-11-30 06:22] LABS: Blast 1 % (0-0); Lymphocyte 3 % (19-41); Monocyte 2 % (0-10); Myelocyte 2 % (0-0)
[2020-11-30 06:23] LABS: Absolute Neutrophil Count 15.7 X10^3/uL (2.0-7.7)
[2020-11-30 06:24] LABS: Absolute Lymphocyte Count 0.17 X10^3/uL (0.83-4.51); Platelet Estimate ADEQUATE (ADEQ); Red Cell Morphology NORM C+C NORMAL (NORM C&C)
[2020-11-30 07:58] LABS: ALB/GLOB Ratio 0.3 RATIO (0.9-2.4); AST(SGOT) 27 U/L (15-37); Alanine Aminotransfer ALT/SGPT 44 U/L (16-61); Albumin, Serum 1.4 g/dL (3.2-5.0); Alkaline Phosphatase 115 U/L (45-117); Anion Gap 8 (5-15); BUN 48 mg/dL (7-18); Chloride 108 mmol/L (98-107); Creatinine, Serum 1.17 mg/dL (0.70-1.30); EST Glomerular Filtration Rate 64 mL/min (>60); Est Glom Filt Rate - Afr Amer 78 mL/min (>60); Estimated Creatinine Clearance 55.42 ml/min; Globulin 4.8 g/dL (2.2-4.2); Glucose 124 mg/dL (74-106); Potassium 3.7 mmol/L (3.5-5.1); Protein, Total 6.2 g/dL (6.4-8.2); Sodium Level 139 mmol/L (136-145)
--- NOTE | 2020-11-30 09:20 | PN.CC_ITS ---
Assessment & Plan Assessment/Plan (1) Acute hypoxemic respiratory failure: PLAN: RECOMMENDATIONS: 1. Continue to wean supplemental oxygen to maintain saturations at or above 90%. 2. Continue antimicrobials per ID recommendations. 3. Continue prednisone 40 mg daily. 4. Continue appropriate prophylaxis. 5. Encourage incentive spirometer use and mobilize patient as tolerated. IMPRESSIONS: 1. Acute hypoxemic respiratory failure Appears to be secondary to multilobar Legionella pneumonia. However, in light of the patient's clinical presentation and oxygenation status, bronchoscopy was performed on November 27. BAL fluid was sent for analysis. In the interim, continue to wean supplemental oxygen to maintain saturations at or above 90%. Continue antimicrobials per ID recommendations. 2. Severe sepsis Secondary to underlying pulmonary infectious etiology. Given that the patient has been on prednisone therapy now at 60 mg daily for the last 6 weeks, I would avoid abrupt cessation of his corticosteroids. Will continue prednisone at 40 mg daily to avoid any form of adrenal insufficiency. The patient is currently hemodynamically stable. Continue antimicrobials per ID recommendations. 3. Acute kidney injury Resolved. Most likely prerenal in etiology. Creatinine has improved with volume expansion. Continue to monitor urine output. No current indication for renal replacement therapy. 4. Positive autoimmune work-up There has been concern for a possible underlying autoimmune process in the past. The patient's PCP placed him on prednisone approximately 6 weeks ago. The patient was referred to rheumatology but has yet to be evaluated. 5. Hypertension/hypothyroidism/GERD Complicates care, management, recovery and prognosis. Continue home medications as indicated. CODE status: Discussed CODE status at length including difference between FULL code, DNR-CCA and DNR-CC status. Following discussions about the differences in these status, patient requested FULL CODE STATUS. This note was generated with Remote Assistant dictation software. It may contain incorrect words, spelling, and punctuation that were not noted in checking the note before signing. Subjective Subjective The patient was seen and examined at the bedside this morning. Events from the last 24 hours have been reviewed. The patient is currently afebrile, hemod ynamically stable and maintaining appropriate oxygen saturations on 6 L/min via nasal cannula. The patient is currently documented to be overall net +7L for the hospital admission. The patient remains on antimicrobials and prednisone daily. Objective Data Objective Data The patient's most recent lab work, culture data and imaging studies have all been personally reviewed. Surface echocardiogram dated November 08 revealed normal LV size with an ejection fraction of 65%. Right ventricular systolic pressure was estimated to be 34 mmHg. Legionella urine antigen was positive. Streptococcus urinary antigen was negative. Both rapid coronavirus antigen testing and PCR were negative. Blood cultures have shown no growth to date. Viral and fungal cultures are pending. Right middle lobe BAL was positive for alpha hemolytic Streptococcus. Vital Signs: Vital Signs Temp Pulse Resp BP Pulse Ox 98 F 95 18 132/60 H 93 11/30/20 04:35 11/30/20 07:00 11/30/20 04:35 11/30/20 04:35 11/30/20 04:35 Oxygen Flow Rate (L/min) 6 Oxygen Delivery Method Nasal Cannula Weight: 178 lb 5.663 oz Body Mass Index (BMI) 24.0 Intake & Output: Intake and Output for Last 24 Hours 11/28/20 11/29/20 11/30/20 23:59 23:59 23:59 Intake Total 1130 / 1130 810 / 810 Output Total 2450 / 2700 1275 / 1275 375 / 375 Balance -1320 / -1570 -465 / -465 -375 / -375 Lab / Micro Data Attestation: I reviewed the patient's lab results. Result Diagrams: 11/30/20 05:10 11/30/20 05:10 Labs: Laboratory Results - last 24 hr 11/30/20 11/30/20 05:10 05:10 WBC 17.0 H RBC 3.49 L Hgb 10.7 L Hct 32.6 L MCV 93.4 MCH 30.7 MCHC 32.8 RDW Std Deviation 54.5 H RDW Coeff of Sukumar 15.9 H Plt Count 412 MPV 10.3 Neut % (Auto) Not Reportable Absolute Neuts (auto) 15.7 H Absolute Lymphs (auto) 0.17 L Neutrophils % (Manual) 91 H Band Neutrophils % 1 Lymphocytes % (Manual) 3 L Monocytes % (Manual) 2 Myelocytes % 2 H Blast Cells % 1 H* Diff Path Review May foll Platelet Estimate ADEQUATE RBC Morphology NORM C+C Sodium 139 Potassium 3.7 Chloride 108 H Carbon Dioxide 23.0 Anion Gap 8 BUN 48 H Creatinine 1.17 Estim Creat Clear Calc 55.42 Est GFR (MDRD) Af Amer 78 Est GFR (MDRD) Non-Af 64 BUN/Creatinine Ratio 41.0 H Glucose 124 H Calcium 9.0 Total Bilirubin 0.60 AST 27 ALT 44 Alkaline Phosphatase 115 Total Protein 6.2 L Albumin 1.4 L Globulin 4.8 H Albumin/Globulin Ratio 0.3 L Micro: Microbiology 11/27/20 09:40 Bronchial Lavage - Right Middle Lobe Gram Stain - Final 11/27/20 09:40 Bronchial Lavage - Right Middle Lobe Respiratory Culture - Preliminary Alpha Hemolytic Streptococcus Presumptive C albicans 11/25/20 08:35 Blood Culture (Wb) - Anticubital Left Blood Culture - Preliminary No growth in 48 hours. 11/25/20 09:51 Blood Culture (Wb) - Anticubital Right Blood Culture - Preliminary No growth in 48 hours. 11/26/20 14:20 Urine, Random Legionella Antigen - Final 11/26/20 14:20 Urine, Random Streptococcus pneumoniae Antigen (M - Final 11/25/20 12:05 Mucosa - Nose SARS-CoV-2 Antigen (Rapid) - Final Physical Exam Const alert, oriented x3 and no apparent distress General Appearance: cooperative HEENT normocephalic, head/scalp atraumatic and moist oral mucous membranes Eyes PERRL, EOMs intact bilaterally and conjunctivae normal Neck supple General: trachea midline Resp Auscultation: diminished lung sounds; Negative for rales, rhonchi or wheezes Cardio regular rate, regular rhythm, S1 normal heart sound and S2 normal heart sound GI normal to inspection, nondistended, normoactive bowel sounds Extremity no clubbing, cyanosis or edema Skin no rashes or lesions noted Neuro CN's II-XII intact bilaterally, moves all extremities and no focal motor deficits Psych cooperative and affect normal Charges/Coding Visit Charges Inpatient E&M: 28313 Subs Hosp L2
[2020-11-30] MEDS: Aspirin E.C. 81 MG Tablet PO (09:54)
[2020-11-30] MEDS: predniSONE 20 MG Tablet 40 MG PO (09:54)
[2020-11-30] MEDS: Pantoprazole Sodium 20 MG Tablet PO (09:54)
[2020-11-30] MEDS: levoFLOXacin IV 500 MG/100 ML BAG 100 MG IV (12:22)
[2020-11-30] MEDS: 0.9% Saline Lock 10 ML Syringe IV (12:24)
--- NOTE | 2020-11-30 12:30 | PN.HOSP_ITS ---
Subjective Subjective Patient seen and examined. He feels much better today. He was transferred out of the ICU to the PCU yesterday. He has no active complaints and review of systems otherwise negative. He does remain in isolation per ID. He remains in cumulative positive balance by 7.299 L. Objective Data Objective Data Vital Signs: Vital Signs Temp Pulse Resp BP Pulse Ox 97.8 F 104 H 18 106/67 94 11/30/20 09:50 11/30/20 11:00 11/30/20 09:50 11/30/20 09:50 11/30/20 09:50 Oxygen Flow Rate (L/min) 5 Oxygen Delivery Method Nasal Cannula Weight: 178 lb 5.663 oz Body Mass Index (BMI) 24.0 Intake & Output: Intake and Output for Last 24 Hours 11/28/20 11/29/20 11/30/20 23:59 23:59 23:59 Intake Total 1130 / 1130 810 / 810 360 / 360 Output Total 2450 / 2700 1275 / 1275 725 / 725 Balance -1320 / -1570 -465 / -465 -365 / -365 Lab / Micro Data Result Diagrams: 11/30/20 05:10 11/30/20 05:10 Labs: Laboratory Results - last 24 hr 11/30/20 11/30/20 05:10 05:10 WBC 17.0 H RBC 3.49 L Hgb 10.7 L Hct 32.6 L MCV 93.4 MCH 30.7 MCHC 32.8 RDW Std Deviation 54.5 H RDW Coeff of Sukumar 15.9 H Plt Count 412 MPV 10.3 Neut % (Auto) Not Reportable Absolute Neuts (auto) 15.7 H Absolute Lymphs (auto) 0.17 L Neutrophils % (Manual) 91 H Band Neutrophils % 1 Lymphocytes % (Manual) 3 L Monocytes % (Manual) 2 Myelocytes % 2 H Blast Cells % 1 H* Diff Path Review May foll Platelet Estimate ADEQUATE RBC Morphology NORM C+C Sodium 139 Potassium 3.7 Chloride 108 H Carbon Dioxide 23.0 Anion Gap 8 BUN 48 H Creatinine 1.17 Estim Creat Clear Calc 55.42 Est GFR (MDRD) Af Amer 78 Est GFR (MDRD) Non-Af 64 BUN/Creatinine Ratio 41.0 H Glucose 124 H Calcium 9.0 Total Bilirubin 0.60 AST 27 ALT 44 Alkaline Phosphatase 115 Total Protein 6.2 L Albumin 1.4 L Globulin 4.8 H Albumin/Globulin Ratio 0.3 L Micro: Microbiology 11/25/20 08:35 Blood Culture (Wb) - Anticubital Left Blood Culture - Final No growth in 5 days. 11/25/20 09:51 Blood Culture (Wb) - Anticubital Right Blood Culture - Final No growth in 5 days. 11/27/20 09:40 Bronchial Lavage - Right Middle Lobe Gram Stain - Final 11/27/20 09:40 Bronchial Lavage - Right Middle Lobe Respiratory Culture - Preliminary Alpha Hemolytic Streptococcus Presumptive C albicans 11/26/20 14:20 Urine, Random Legionella Antigen - Final 11/26/20 14:20 Urine, Random Streptococcus pneumoniae Antigen (M - Final 11/25/20 12:05 Mucosa - Nose SARS-CoV-2 Antigen (Rapid) - Final Physical Exam Const alert, oriented x3 and no apparent distress Constitutional Narrative: Looks acutely ill General Appearance: cooperative Orientation / Consciousness: lethargic Exam Limitations: no limitations HEENT normocephalic and head/scalp atraumatic Head and Scalp: normocephalic Eyes PERRL, EOMs intact bilaterally and conjunctivae normal Neck no lymphadenopathy, supple and no JVD Resp Resp Narrative: Diminished breath sounds bibasilally. On 6L of oxygen by nasal canula Auscultation: diminished lung sounds; Negative for crackles, rales, rhonchi or wheezes Cardio regular rate, regular rhythm, S1 normal heart sound, S2 normal heart sound and no murmurs Cardio Narrative: tachycardia has resolved Rate: tachycardic GI normal to inspection, nondistended, normoactive bowel sounds, soft to palpation, non-tender and non-distended; Negative for hepatosplenomegaly Extremity normal to inspection, full ROM and no clubbing, cyanosis or edema Peripheral Pulses: Yes pulses 2+ throughout Skin no rashes or lesions noted Neuro oriented x3, no focal motor deficits and no sensory deficits noted Sensorium / Orientation: awake and alert Psych affect normal Appearance: appropriate Assessment & Plan Assessment/Plan (1) Severe sepsis: (2) BATR (acute kidney injury): (3) Pneumonia: QUALIFIERS: Pneumonia type: due to Pneumococcus Laterality: right Lung location: lower lobe of lung Qualified Code(s): J13 - Pneumonia due to Streptococcus pneumoniae (4) Acute hypoxemic respiratory failure: PLAN: #Severe sepsis due to community acquired pneumonia * remains on 6L of oxygen by nasal canula * now on just IV levaquin. Vancomycin and cefepime discontinued. * legionella urine antigen positive. COVID PCR negative. * CTA of the chest was negative for PE and showed dense consolidation of the RUL as well as right middle lobe * BAL growing alpha hemolyticus strep * wbc is down to 17 today * remains on remdesivir per ID due to concerns about covid though covid PCR and antigen tests were both negative. * #Acute hypoxic respiratory failure due to pneumonia * CTA of chest as above * oxygen requirements as above now * Titrate oxygen to maintain saturation above 90%. * Breathing treatments with bronchodilators. * s/p bronchoscopy * #BART: resolved. 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 * on PO prednisone * antimuscarinic antibody test and acetyl choline antibody test were negative for myasthenia gravis. * follow up with rheumatology on outpatient basis * DVT prophylaxis: Heparin Charges/Coding Visit Charges Inpatient E&M: 43030 Subs Hosp L2
[2020-11-30 12:41] LABS: Pathologist Review Reviewed
--- NOTE | 2020-11-30 13:55 | PCM.PN.ID ---
Physical Exam Narrative Feeling better, O2 improving, no fever, minimal sputum Const alert and no apparent distress General Appearance: cooperative Resp clear to auscultation bilaterally Auscultation: diminished lung sounds Cardio regular rate and regular rhythm GI normal to inspection, nondistended, normoactive bowel sounds Skin no rashes or lesions noted ID ID: Route of nutrition/ use of supplements: [] Nutritional Intake: [] IV Site: [] Andrews Catheter: [] Assessment & Plan Assessment/Plan (1) Acute hypoxemic respiratory failure: (2) Pneumonia: QUALIFIERS: Pneumonia type: due to Pneumococcus Laterality: right Lung location: lower lobe of lung Qualified Code(s): J13 - Pneumonia due to Streptococcus pneumoniae (3) BART (acute kidney injury): (4) Severe sepsis: PLAN: severe sepsis with BART, hypoxia. Has been on 60mg daily prednisone for past 6 weeks, so is at risk for pneumocystis. - With one week of fatigue, dry cough, dyspnea, body aches, fever, and loss of taste, and now presenting with rapidly progressive hypoxic resp failure and lymphopenia, high concern for covid despite one negative pcr. Only received 1st dose covid vaccine 07/30/20. CT showed no PE. Bronch done 11/27. - Legionella Ag (+). Reports hives with levaquin 25-30 years ago. Similar reaction with erythromycin. So far tolerating levaquin well. - Completed remdesivir - On pred taper - BART improved - O2 dramatically improved, feeling better. Last dose of levaquin to be 12/03/20. Will follow
[2020-12-01] VITALS (11 sets, daily range): BP systolic 105–122; BP diastolic 67–77; PULSE 65–106; RESP 16; TEMP 36.2–36.9; O2SAT 91–97
[2020-12-01] MEDS: Levothyroxine 75 MCG Tablet PO (06:22)
[2020-12-01] MEDS: levoFLOXacin 500 MG Tablet PO (06:22)
[2020-12-01] MEDS: Heparin Injection (Vial) 5,000 UNIT/ML VIAL 5000 UNIT SC ×3 (06:22→23:27)
--- NOTE | 2020-12-01 07:07 | PN.CC_ITS ---
Assessment & Plan Assessment/Plan (1) Acute hypoxemic respiratory failure: PLAN: RECOMMENDATIONS: 1. Continue to wean supplemental oxygen to maintain saturations at or above 90%. 2. Continue antimicrobials per ID recommendations. 3. Continue prednisone 40 mg daily. Follow-up with rheumatology as scheduled on outpatient basis. 4. Continue appropriate prophylaxis. 5. Encourage incentive spirometer use and mobilize patient as tolerated. 6. Perform walking oximetry study prior to consideration for discharge home. 7. If the patient is able to maintain appropriate oxygen saturations on 6 L/min or less, he can be discharged. 8. Follow-up in the pulmonary medicine clinic as previously scheduled. 9. Will sign off. Please call with any additional questions. IMPRESSIONS: 1. Acute hypoxemic respiratory failure Appears to be secondary to multilobar Legionella pneumonia. However, in light of the patient's clinical presentation and oxygenation status, bronchoscopy was performed on November 27. BAL fluid was sent for analysis. In the interim, continue to wean supplemental oxygen to maintain saturations at or above 90%. Continue antimicrobials per ID recommendations. 2. Severe sepsis Secondary to underlying pulmonary infectious etiology. Given that the patient has been on prednisone therapy now at 60 mg daily for the last 6 weeks, I would avoid abrupt cessation of his corticosteroids. Will continue prednisone at 40 mg daily to avoid any form of adrenal insufficiency. The patient is currently hemodynamically stable. Continue antimicrobials per ID recommendations. 3. Acute kidney injury Resolved. Most likely prerenal in etiology. Creatinine has improved with volume expansion. Continue to monitor urine output. No current indication for renal replacement therapy. 4. Positive autoimmune work-up There has been concern for a possible underlying autoimmune process in the past. The patient's PCP placed him on prednisone approximately 6 weeks ago. The patient was referred to rheumatology but has yet to be evaluated. 5. Hypertension/hypothyroidism/GERD Complicates care, management, recovery and prognosis. Continue home medications as indicated. CODE status: Discussed CODE status at length including difference between FULL code, DNR-CCA and DNR-CC status. Following discussions about the differences in these status, patient requested FULL CODE STATUS. This note was generated with [employer] software. It may contain incorrect words, spelling, and punctuation that were not noted in checking the note before signing. Subjective Subjective The patient was seen and examined at the bedside this morning. Events from the last 24 hours have been reviewed. The patient is currently afebrile, hemodynamically stable and maintaining appropriate oxygen saturations on 3 L/min via nasal cannula. The patient is currently documented to be overall net +7.1L for the hospital admission. The patient feels well and is without any specific complaints. Objective Data Objective Data The patient's most recent lab work, culture data and imaging studies have all been personally reviewed. Surface echocardiogram dated November 08 revealed normal LV size with an ejection fraction of 65%. Right ventricular systolic pressure was estimated to be 34 mmHg. Legionella urine antigen was positive. Streptococcus urinary antigen was negative. Both rapid coronavirus antigen testing and PCR were negative. Blood cultures have shown no growth to date. Viral and fungal cultures are pending. Right middle lobe BAL was positive for alpha hemolytic Streptococcus. Vital Signs: Vital Signs Temp Pulse Resp BP Pulse Ox 97.1 F L 65 16 115/69 92 12/01/20 03:24 12/01/20 03:24 12/01/20 03:24 12/01/20 03:24 12/01/20 03:24 Oxygen Flow Rate (L/min) 3 Oxygen Delivery Method Nasal Cannula Weight: 168 lb 10.458 oz Body Mass Index (BMI) 24.0 Intake & Output: Intake and Output for Last 24 Hours 11/29/20 11/30/20 12/01/20 23:59 23:59 23:59 Intake Total 810 / 810 950 / 950 300 / 300 Output Total 1275 / 1275 925 / 925 600 / 600 Balance -465 / -465 25 / 25 -300 / -300 Lab / Micro Data Attestation: I reviewed the patient's lab results. Result Diagrams: 12/01/20 06:14 12/01/20 06:14 Labs: Laboratory Results - last 24 hr 11/27/20 11/30/20 11/30/20 09:40 05:10 05:10 Diff Path Review Reviewed Sodium 139 Potassium 3.7 Chloride 108 H Carbon Dioxide 23.0 Anion Gap 8 BUN 48 H Creatinine 1.17 Estim Creat Clear Calc 55.42 Est GFR (MDRD) Af Amer 78 Est GFR (MDRD) Non-Af 64 BUN/Creatinine Ratio 41.0 H Glucose 124 H Calcium 9.0 Total Bilirubin 0.60 AST 27 ALT 44 Alkaline Phosphatase 115 Total Protein 6.2 L Albumin 1.4 L Globulin 4.8 H Albumin/Globulin Ratio 0.3 L Miscellaneous Test Micro: Microbiology 11/27/20 09:40 Bronchial Lavage - Right Middle Lobe Gram Stain - Final 11/27/20 09:40 Bronchial Lavage - Right Middle Lobe Respiratory Culture - Final Streptococcus mitis/ oralis Presumptive C albicans 11/25/20 08:35 Blood Culture (Wb) - Anticubital Left Blood Culture - Final No growth in 5 days. 11/25/20 09:51 Blood Culture (Wb) - Anticubital Right Blood Culture - Final No growth in 5 days. 11/26/20 14:20 Urine, Random Legionella Antigen - Final 11/26/20 14:20 Urine, Random Streptococcus pneumoniae Antigen (M - Final 11/25/20 12:05 Mucosa - Nose SARS-CoV-2 Antigen (Rapid) - Final Physical Exam Const alert, oriented x3 and no apparent distress General Appearance: cooperative HEENT normocephalic, head/scalp atraumatic and moist oral mucous membranes Eyes PERRL, EOMs intact bilaterally and conjunctivae normal Neck supple General: trachea midline Resp Auscultation: diminished lung sounds; Negative for rales, rhonchi or wheezes Cardio regular rate, regular rhythm, S1 normal heart sound and S2 normal heart sound GI normal to inspection, nondistended, normoactive bowel sounds Extremity no clubbing, cyanosis or edema Skin no rashes or lesions noted Neuro CN's II-XII intact bilaterally, moves all extremities and no focal motor deficits Psych cooperative and affect normal Charges/Coding Visit Charges Inpatient E&M: 30291 Subs Hosp L2
[2020-12-01 07:16] LABS: Hematocrit 32.3 % (40-54); Hemoglobin 10.6 g/dL (13.0-16.5); Mean Corp Hgb Conc 32.8 g/dL (32-36); Mean Corpuscular Hgb 30.6 pg (27.0-32.0); Mean Corpuscular Volume 93.4 fL (80-94); Mean Platelet Vol. 10.6 fl (6.2-12.0); POSITIVE COUNT YES; POSITIVE MORPHOLOGY YES; Platelet Count 462 K/mm3 (150-450); RBC Distribution Width CV 16.1 % (11.6-14.6); RBC Distribution Width SD 55.5 fl (35.1-43.9); Red Blood Count 3.46 M/mm3 (4.6-6.2); White Blood Count 15.5 K/mm3 (4.4-11.0)
[2020-12-01 07:18] LABS: Differential Indicated MANUAL DIFF
[2020-12-01 07:39] LABS: Anion Gap 9 (5-15); BUN 55 mg/dL (7-18); BUN/Creat Ratio 48.7 RATIO (10-20); Calcium,Total 9.1 mg/dL (8.5-10.1); Chloride 108 mmol/L (98-107); Creatinine, Serum 1.13 mg/dL (0.70-1.30); EST Glomerular Filtration Rate 67 mL/min (>60); Est Glom Filt Rate - Afr Amer 81 mL/min (>60); Estimated Creatinine Clearance 57.38 ml/min; Glucose 130 mg/dL (74-106); Potassium 3.9 mmol/L (3.5-5.1); Sodium Level 140 mmol/L (136-145)
[2020-12-01 07:54] LABS: Lymphocyte 5 % (19-41); Metamyelocyte 2 % (0-1); Monocyte 1 % (0-10); Myelocyte 3 % (0-0); Neutrophil-Band 1 % (0-5); Neutrophil-Segmented 88 % (47-70); Total Cells Counted 100 (MANUAL DIFF)
[2020-12-01 07:55] LABS: Platelet Estimate ADEQUATE (ADEQ); Red Cell Morphology NORM C+C NORMAL (NORM C&C)
[2020-12-01 07:56] LABS: Absolute Lymphocyte Count 0.77 X10^3/uL (0.83-4.51); Absolute Neutrophil Count 13.8 X10^3/uL (2.0-7.7); Lymphocyte # 0.77 X10^3/ul (0.83-4.51); Neutrophil # 13.81 X10^3/uL (2.7-7.7)
[2020-12-01] MEDS: predniSONE 20 MG Tablet 40 MG PO (10:13)
[2020-12-01] MEDS: Aspirin E.C. 81 MG Tablet PO (10:14)
[2020-12-01] MEDS: Pantoprazole Sodium 20 MG Tablet PO (10:14)
--- NOTE | 2020-12-01 11:10 | PN.HOSP_ITS ---
Subjective Subjective Doing well, breathing a little bit easier. No issues overnight. White count is trending down Objective Data Objective Data Vital Signs: Vital Signs Temp Pulse Resp BP Pulse Ox 98.5 F 93 16 122/67 H 97 12/01/20 10:11 12/01/20 10:11 12/01/20 10:11 12/01/20 10:11 12/01/20 10:11 Oxygen Flow Rate (L/min) 3 Oxygen Delivery Method Nasal Cannula Weight: 168 lb 10.458 oz Body Mass Index (BMI) 24.0 Intake & Output: Intake and Output for Last 24 Hours 11/30/20 12/01/20 12/02/20 03:59 03:59 03:59 Intake Total 810 / 810 950 / 950 300 / 300 Output Total 1025 / 1025 1125 / 1125 400 / 400 Balance -215 / -215 -175 / -175 -100 / -100 Lab / Micro Data Result Diagrams: 12/01/20 06:14 12/01/20 06:14 Labs: Laboratory Results - last 24 hr 11/27/20 11/30/20 12/01/20 09:40 05:10 06:14 WBC 15.5 H RBC 3.46 L Hgb 10.6 L Hct 32.3 L MCV 93.4 MCH 30.6 MCHC 32.8 RDW Std Deviation 55.5 H RDW Coeff of Sukumar 16.1 H Plt Count 462 H MPV 10.6 Neut % (Auto) Not Reportable Absolute Neuts (auto) 13.8 H Absolute Lymphs (auto) 0.77 L Total Counted 100 Neutrophils % (Manual) 88 H Band Neutrophils % 1 Lymphocytes % (Manual) 5 L Monocytes % (Manual) 1 Metamyelocytes % 2 H Myelocytes % 3 H Diff Path Review Reviewed May foll Platelet Estimate ADEQUATE RBC Morphology NORM C+C Sodium Potassium Chloride Carbon Dioxide Anion Gap BUN Creatinine Estim Creat Clear Calc Est GFR (MDRD) Af Amer Est GFR (MDRD) Non-Af BUN/Creatinine Ratio Glucose Calcium Miscellaneous Test 12/01/20 06:14 WBC RBC Hgb Hct MCV MCH MCHC RDW Std Deviation RDW Coeff of Sukumar Plt Count MPV Neut % (Auto) Absolute Neuts (auto) Absolute Lymphs (auto) Total Counted Neutrophils % (Manual) Band Neutrophils % Lymphocytes % (Manual) Monocytes % (Manual) Metamyelocytes % Myelocytes % Diff Path Review Platelet Estimate RBC Morphology Sodium 140 Potassium 3.9 Chloride 108 H Carbon Dioxide 23.0 Anion Gap 9 BUN 55 H Creatinine 1.13 Estim Creat Clear Calc 57.38 Est GFR (MDRD) Af Amer 81 Est GFR (MDRD) Non-Af 67 BUN/Creatinine Ratio 48.7 H Glucose 130 H Calcium 9.1 Miscellaneous Test Micro: Microbiology 11/27/20 09:40 Bronchial Lavage - Right Middle Lobe Gram Stain - Final 11/27/20 09:40 Bronchial Lavage - Right Middle Lobe Respiratory Culture - Final Streptococcus mitis/ oralis Presumptive C albicans 11/25/20 08:35 Blood Culture (Wb) - Anticubital Left Blood Culture - Final No growth in 5 days. 11/25/20 09:51 Blood Culture (Wb) - Anticubital Right Blood Culture - Final No growth in 5 days. 11/26/20 14:20 Urine, Random Legionella Antigen - Final 11/26/20 14:20 Urine, Random Streptococcus pneumoniae Antigen (M - Final 11/25/20 12:05 Mucosa - Nose SARS-CoV-2 Antigen (Rapid) - Final Physical Exam Const alert, oriented x3 and no apparent distress Constitutional Narrative: Looks acutely ill General Appearance: cooperative Orientation / Consciousness: lethargic Exam Limitations: no limitations HEENT normocephalic and moist oral mucous membranes Eyes PERRL, EOMs intact bilaterally and conjunctivae normal Neck supple and no JVD Resp normal respiratory effort, no retractions, no use of accessory muscles and clear to auscultation bilaterally Resp Narrative: Diminished breath sounds bibasilally. On 6L of oxygen by nasal canula Auscultation: diminished lung sounds; Negative for crackles, rales, rhonchi or wheezes Cardio regular rate, regular rhythm, S1 normal heart sound, S2 normal heart sound and no murmurs Cardio Narrative: tachycardia has resolved Rate: tachycardic GI soft to palpation, non-tender and non-distended; Negative for hepatosplenomegaly Extremity no clubbing, cyanosis or edema Skin no rashes or lesions noted Neuro no focal motor deficits and no sensory deficits noted Sensorium / Orientation: awake and alert Psych affect normal Appearance: appropriate Assessment & Plan Assessment/Plan (1) Severe sepsis: (2) BART (acute kidney injury): (3) Pneumonia: QUALIFIERS: Pneumonia type: due to Pneumococcus Laterality: right Lung location: lower lobe of lung Qualified Code(s): J13 - Pneumonia due to Streptococcus pneumoniae (4) Acute hypoxemic respiratory failure: PLAN: #Severe sepsis due to community acquired pneumonia * remains on 6L of oxygen by nasal canula * now on just IV levaquin. Vancomycin and cefepime discontinued. * legionella urine antigen positive. COVID PCR negative. * CTA of the chest was negative for PE and showed dense consolidation of the RUL as well as right middle lobe * BAL growing alpha hemolyticus strep * wbc is down to 17 today * remains on remdesivir per ID due to concerns about covid though covid PCR and antigen tests were both negative. * 12/01/2020: Completed remdesivir, Covid is a very little concern is he had an organizing pneumonia and he has had multiple negative Covid tests. Legionella antigen test did come back positive therefore we will continue with Levaquin #Acute hypoxic respiratory failure due to pneumonia * CTA of chest as above * oxygen requirements as above now * Titrate oxygen to maintain saturation above 90%. * Breathing treatments with bronchodilators. * s/p bronchoscopy * #BART: resolved. 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 * on PO prednisone * antimuscarinic antibody test and acetyl choline antibody test were negative for myasthenia gravis. * follow up with rheumatology on outpatient basis * 12/01/2020: We will continue with p.o. prednisone and he will likely need to be discharged with this when stable. DVT: Heparin Charges/Coding Visit Charges Inpatient E&M: 45279 Subs Hosp L2
[2020-12-01] MEDS: Acetaminophen 325 MG Tablet 650 MG PO (20:34)
[2020-12-02] VITALS (13 sets, daily range): BP systolic 100–123; BP diastolic 44–73; PULSE 79–112; RESP 12–18; TEMP 36.2–36.8; O2SAT 94–96
[2020-12-02] MEDS: Levothyroxine 75 MCG Tablet PO (05:54)
[2020-12-02] MEDS: levoFLOXacin 500 MG Tablet PO (05:54)
[2020-12-02] MEDS: Heparin Injection (Vial) 5,000 UNIT/ML VIAL 5000 UNIT SC ×3 (05:54→21:21)
[2020-12-02 06:06] LABS: Hemoglobin 10.5 g/dL (13.0-16.5); Mean Corp Hgb Conc 32.8 g/dL (32-36); Mean Corpuscular Hgb 30.7 pg (27.0-32.0); Mean Corpuscular Volume 93.6 fL (80-94); Mean Platelet Vol. 10.2 fl (6.2-12.0); POSITIVE COUNT YES; POSITIVE MORPHOLOGY YES; Platelet Count 485 K/mm3 (150-450); RBC Distribution Width CV 15.9 % (11.6-14.6); RBC Distribution Width SD 54.5 fl (35.1-43.9); Red Blood Count 3.42 M/mm3 (4.6-6.2); White Blood Count 14.7 K/mm3 (4.4-11.0)
[2020-12-02 06:09] LABS: Differential Indicated MANUAL DIFF
[2020-12-02 06:28] LABS: Metamyelocyte 4 % (0-1); Myelocyte 3 % (0-0); Neutrophil-Segmented 83 % (47-70); Promyelocyte 1 % (0-0)
[2020-12-02 06:29] LABS: Lymphocyte 6 % (19-41); Monocyte 3 % (0-10)
[2020-12-02 06:30] LABS: Absolute Neutrophil Count 12.2 X10^3/uL (2.0-7.7)
[2020-12-02 06:31] LABS: Absolute Lymphocyte Count 0.88 X10^3/uL (0.83-4.51); Platelet Estimate SLT INC (ADEQ); Red Cell Morphology NORM C+C NORMAL (NORM C&C)
[2020-12-02 06:34] LABS: Anion Gap 9 (5-15); BUN 54 mg/dL (7-18); BUN/Creat Ratio 47.8 RATIO (10-20); Calcium,Total 8.7 mg/dL (8.5-10.1); Chloride 107 mmol/L (98-107); Creatinine, Serum 1.13 mg/dL (0.70-1.30); EST Glomerular Filtration Rate 67 mL/min (>60); Est Glom Filt Rate - Afr Amer 81 mL/min (>60); Estimated Creatinine Clearance 57.38 ml/min; Glucose 124 mg/dL (74-106); Sodium Level 140 mmol/L (136-145)
[2020-12-02] MEDS: Aspirin E.C. 81 MG Tablet PO (07:38)
[2020-12-02] MEDS: predniSONE 20 MG Tablet 40 MG PO (07:38)
[2020-12-02] MEDS: Pantoprazole Sodium 20 MG Tablet PO (09:44)
--- NOTE | 2020-12-02 10:51 | PCM.PN.HOSP ---
Subjective Subjective See paper chart for billing and note Objective Data Objective Data Vital Signs: Vital Signs Temp Pulse Resp BP Pulse Ox 98.2 F 79 12 106/68 94 12/02/20 09:46 12/02/20 09:46 12/02/20 09:46 12/02/20 09:46 12/02/20 09:46 Oxygen Flow Rate (L/min) 2 Oxygen Delivery Method Nasal Cannula Weight: 169 lb 8.568 oz Body Mass Index (BMI) 24.0 Intake & Output: Intake and Output for Last 24 Hours 12/01/20 12/02/20 12/03/20 03:59 03:59 03:59 Intake Total 950 / 950 1340 / 1340 120 / 120 Output Total 1125 / 1125 1550 / 1550 375 / 375 Balance -175 / -175 -210 / -210 -255 / -255 Lab / Micro Data Result Diagrams: 12/02/20 05:54 12/02/20 05:54 Labs: Laboratory Results - last 24 hr 12/02/20 12/02/20 05:54 05:54 WBC 14.7 H RBC 3.42 L Hgb 10.5 L Hct 32.0 L MCV 93.6 MCH 30.7 MCHC 32.8 RDW Std Deviation 54.5 H RDW Coeff of Sukumar 15.9 H Plt Count 485 H MPV 10.2 Neut % (Auto) Not Reportable Absolute Neuts (auto) 12.2 H Absolute Lymphs (auto) 0.88 Neutrophils % (Manual) 83 H Lymphocytes % (Manual) 6 L Monocytes % (Manual) 3 Metamyelocytes % 4 H Myelocytes % 3 H Promyelocytes % 1 H Diff Path Review May foll Platelet Estimate SLT INC RBC Morphology NORM C+C Sodium 140 Potassium 4.0 Chloride 107 Carbon Dioxide 24.0 Anion Gap 9 BUN 54 H Creatinine 1.13 Estim Creat Clear Calc 57.38 Est GFR (MDRD) Af Amer 81 Est GFR (MDRD) Non-Af 67 BUN/Creatinine Ratio 47.8 H Glucose 124 H Calcium 8.7 Micro: Microbiology 11/27/20 09:40 Bronchial Lavage - Right Middle Lobe Gram Stain - Final 11/27/20 09:40 Bronchial Lavage - Right Middle Lobe Respiratory Culture - Final Streptococcus mitis/ oralis Presumptive C albicans 11/25/20 08:35 Blood Culture (Wb) - Anticubital Left Blood Culture - Final No growth in 5 days. 11/25/20 09:51 Blood Culture (Wb) - Anticubital Right Blood Culture - Final No growth in 5 days. 11/26/20 14:20 Urine, Random Legionella Antigen - Final 11/26/20 14:20 Urine, Random Streptococcus pneumoniae Antigen (M - Final 11/25/20 12:05 Mucosa - Nose SARS-CoV-2 Antigen (Rapid) - Final
[2020-12-03] VITALS (11 sets, daily range): BP systolic 100–115; BP diastolic 62–76; PULSE 61–109; RESP 16–18; TEMP 36.3–36.6; O2SAT 92–96
[2020-12-03] MEDS: Heparin Injection (Vial) 5,000 UNIT/ML VIAL 5000 UNIT SC ×3 (05:58→20:38)
[2020-12-03] MEDS: levoFLOXacin 500 MG Tablet PO (05:58)
[2020-12-03] MEDS: Levothyroxine 75 MCG Tablet PO (05:58)
[2020-12-03 06:50] LABS: Hematocrit 35.1 % (40-54); Hemoglobin 10.6 g/dL (13.0-16.5); Mean Corp Hgb Conc 30.2 g/dL (32-36); Mean Corpuscular Volume 102.6 fL (80-94); Mean Platelet Vol. 10.4 fl (6.2-12.0); POSITIVE COUNT YES; POSITIVE MORPHOLOGY YES; Platelet Count 531 K/mm3 (150-450); RBC Distribution Width CV 16.1 % (11.6-14.6); RBC Distribution Width SD 61.4 fl (35.1-43.9); Red Blood Count 3.42 M/mm3 (4.6-6.2); White Blood Count 14.6 K/mm3 (4.4-11.0)
[2020-12-03 06:52] LABS: Differential Indicated MANUAL DIFF
[2020-12-03 07:14] LABS: Neutrophil-Segmented 80 % (47-70); Total Cells Counted 100 (MANUAL DIFF)
[2020-12-03 07:15] LABS: Absolute Lymphocyte Count 0.88 X10^3/uL (0.83-4.51); Absolute Neutrophil Count 12.4 X10^3/uL (2.0-7.7); Hypochromasia 1+; Lymphocyte 6 % (19-41); Metamyelocyte 5 % (0-1); Monocyte 3 % (0-10); Myelocyte 1 % (0-0); Neutrophil-Band 5 % (0-5); Platelet Estimate SLT INC (ADEQ); Red Cell Morphology N CYTIC NORMAL (NORM C&C)
--- NOTE | 2020-12-03 07:39 | NURSING ---
Received report. Purposeful rounds complete. Patient denies needs. Will monitor.
[2020-12-03] MEDS: Aspirin E.C. 81 MG Tablet PO (10:18)
[2020-12-03] MEDS: Pantoprazole Sodium 20 MG Tablet PO (10:18)
[2020-12-03] MEDS: 0.9% Saline Lock 10 ML Syringe IV (10:39)
[2020-12-03] MEDS: predniSONE 20 MG Tablet 40 MG PO (10:39)
[2020-12-03 11:43] LABS: Magnesium 2.2 mg/dL (1.6-2.6)
--- NOTE | 2020-12-03 15:27 | PN_ITS ---
Progress Note Doing well, breathing a bit easier. We will plan for an ambulatory pulse ox this morning. Assessment/Plan (1) Severe sepsis: (2) BART (acute kidney injury): (3) Pneumonia: QUALIFIERS: Pneumonia type: due to Pneumococcus Laterality: right Lung location: lower lobe of lung Qualified Code(s): J13 - Pneumonia due to Streptococcus pneumoniae (4) Acute hypoxemic respiratory failure: PLAN: #Severe sepsis due to community acquired pneumonia remains on 6L of oxygen by nasal canula now on just IV levaquin. Vancomycin and cefepime discontinued. legionella urine antigen positive. COVID PCR negative. CTA of the chest was negative for PE and showed dense consolidation of the RUL as well as right middle lobe BAL growing alpha hemolyticus strep wbc is down to 17 today remains on remdesivir per ID due to concerns about covid though covid PCR and antigen tests were both negative. 12/01/2020: Completed remdesivir, Covid is a very little concern is he had an organizing pneumonia and he has had multiple negative Covid tests. Legionella antigen test did come back positive therefore we will continue with Levaquin 12/03/2020: Levaquin will complete tomorrow, will plan for an ambulatory pulse ox today #Acute hypoxic respiratory failure due to pneumonia CTA of chest as above oxygen requirements as above now Titrate oxygen to maintain saturation above 90%. Breathing treatments with bronchodilators. s/p bronchoscopy #BART: resolved. 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 on PO prednisone antimuscarinic antibody test and acetyl choline antibody test were negative for myasthenia gravis. follow up with rheumatology on outpatient basis 12/01/2020: We will continue with p.o. prednisone and he will likely need to be discharged with this when stable. DVT: Heparin Physical Exam Const alert, oriented x3 and no apparent distress HEENT normocephalic and moist oral mucous membranes Eyes PERRL, EOMs intact bilaterally and conjunctivae normal Neck supple and no JVD Resp normal respiratory effort, normal air movement, no retractions, no use of accessory muscles and clear to auscultation bilaterally Auscultation: diminished lung sounds; Negative for crackles, rales, rhonchi or wheezes Cardio regular rate, regular rhythm, S1 normal heart sound, S2 normal heart sound and no murmurs GI soft to palpation, non-tender and non-distended; Negative for hepatosplenomegaly Extremity no clubbing, cyanosis or edema Skin no rashes or lesions noted Neuro no focal motor deficits and no sensory deficits noted Psych affect normal Appearance: appropriate Visit Charges Inpatient E&M: 79023 Subs Hosp L2
[2020-12-03] MEDS: Acetaminophen 325 MG Tablet 650 MG PO (23:42)
[2020-12-04] VITALS (7 sets, daily range): BP systolic 111–115; BP diastolic 73–81; PULSE 87–95; RESP 18; TEMP 35.9–36.3; O2SAT 92–94
[2020-12-04] MEDS: Heparin Injection (Vial) 5,000 UNIT/ML VIAL 5000 UNIT SC (05:57)
[2020-12-04] MEDS: Levothyroxine 75 MCG Tablet PO (05:58)
[2020-12-04] MEDS: Pantoprazole Sodium 20 MG Tablet PO (08:36)
[2020-12-04] MEDS: Aspirin E.C. 81 MG Tablet PO (08:36)
[2020-12-04] MEDS: predniSONE 20 MG Tablet 40 MG PO (08:36)
--- NOTE | 2020-12-04 11:29 | DCINST_ITS ---
Discharge Instructions Diet Discharge Diet: No restrictions Activity Discharge Activity: Return to Normal Activity Dressing / Incision Call your doctor if you observe: Fever of 101 or Higher, Shortness of breath, Dizziness, Swelling in the ankles, Chest pain and Increased palpitations (irregular heartbeat) Follow Up Care Test Results: Test results from this visit will be discussed in further detail at your follow-up appointment, if applicable. Discharge Plan Admission Admit Date/Time: 11/25/20 09:44 Attending Provider: Javon Espino Primary Care Provider: Javi Wilkerson Consulting Providers: Winston Barnard ; Asad Chance ; Jayme Mckeon ; Concepcion Trevino NP Discharge Orders/Prescriptions Prescriptions: Continued cholecalciferol (vitamin D3) 5,000 unit tablet 5,000 unit PO DAILY RF: 0 levothyroxine 88 mcg tablet 75 mcg PO DAILY RF: 0 diphenhydramine-acetaminophen [Tylenol PM Extra Strength] 25-500 mg tablet 1 tab PO QHS PRN (Reason: Sleep) RF: 0 prednisone 20 mg tablet 60 mg PO DAILY RF: 0 lisinopril 20 MG tablet 20 mg PO DAILY RF: 0 amlodipine 10 MG tablet 10 mg PO DAILY RF: 0 omeprazole 20 MG capsule 10 mg PO DAILY RF: 0 spironolactone 25 mg tablet 25 mg PO DAILY Qty: 90 RF: 3 aspirin [Adult Low Dose Aspirin] 81 mg tablet,delayed release (DR/EC) 81 mg PO DAILY RF: 0 Referrals / Follow Up: Javi Wilkerson MD [Primary Care Provider] - 12/11/20 11:20 am (Appointment is with Rl Terry N.P.) Concepcion Trevino NP, [employer] [Nurse Practitioner] - 12/17/20 1:15 pm Disposition Disposition (needs filled in before D/C Order can be placed): Home, Self Care
--- NOTE | 2020-12-04 11:53 | DS.PCM_ITS ---
Providers Date of Admission: 11/25/20 Primary Care Physician: Dr. Javi Wilkerson MD Consultations 11/26/20 09:10 Consult: Infectious Disease Routine Consulting Provider: Winston Barnard Reason for Consult: pneumonia EMERGENT Consult: No Notified: Yes Date Notified: 11/26/20 Time Notified: 09:16 Method of Notification: Answering Service 11/26/20 11:25 Consult: Utility Mechanic / Pulmonary Medicine Routine Consulting Provider: Pulmonary Medicine jasson Mckee Reason for Consult: acute hypoxic respiratorty failure EMERGENT Consult: No Notified: Yes Date Notified: 11/26/20 Time Notified: 11:25 Method of Notification: Text Reason For Visit: SEPSIS Diagnosis Discharge Diagnosis (1) Severe sepsis: Status: Acute Code(s): A41.9 - Sepsis, unspecified organism; R65.20 - Severe sepsis without septic shock (2) BART (acute kidney injury): Status: Acute Code(s): N17.9 - Acute kidney failure, unspecified (3) Pneumonia: Status: Acute Code(s): J18.9 - Pneumonia, unspecified organism Qualifiers: Pneumonia type: due to other aerobic Gram-negative bacteria Laterality: right Lung location: middle lobe of lung Qualified Code(s): J15.6 - Pneumonia due to other Gram-negative bacteria (4) Acute hypoxemic respiratory failure: Status: Acute Code(s): J96.01 - Acute respiratory failure with hypoxia Medications at Discharge Home Medications amlodipine 10 mg PO DAILY 04/15/17 lisinopril 20 mg PO DAILY 04/15/17 omeprazole 10 mg PO DAILY 04/15/17 cholecalciferol (vitamin D3) 125 mcg (5,000 unit) tablet 5,000 unit PO DAILY 07/21/18 levothyroxine 88 mcg tablet 75 mcg PO DAILY 09/22/19 spironolactone 25 mg tablet 25 mg PO DAILY #90 tab 01/02/20 diphenhydramine 25 mg-acetaminophen 500 mg tablet 1 tab PO QHS PRN 10/31/20 prednisone 20 mg tablet 60 mg PO DAILY tab 10/31/20 aspirin 81 mg tablet,delayed release 81 mg PO DAILY 11/09/20 Hospital Course Operations None Procedures None Summary of Care Provided Minutes Spent on Discharge: 40 Hospital Course: Per HPI: KULWANT ANDRADE, is a 80 M who presents with shortness of breath and cough. He was recently seen earlier this month and had a CTA of his chest because of an elevated D-dimer which was negative for PE and it did not show right lower lobe consolidation. Chest x-ray today demonstrates a right lower lobe consolidation with an elevated white count and tachycardia consistent with sepsis secondary to pneumonia. Is also been noticing over the last week that he has been waking up in the middle of the night with subjective fevers and said that he has been feeling thirsty. He states that he has been having some knee and hip pain after his first Covid shot and his PCP thinks that he has lupus and may have started him on prednisone. This may explain his elevated D- dimer especially in the setting of pneumonia. I think it is highly doubtful that he has a PE unfortunately cannot get a CTA of his chest this time secondary to his acute renal failure and a VQ scan will be unhelpful secondary to his consolidation. He states that he only got 1 shot for Covid and does not think that he has Covid but will obtain a rapid antigen to be safe. Hospital Course: 1. Severe sepsis and acute hypoxic respiratory failure secondary to Legionella [id number] male who presented to the hospital with shortness of breath and a cough. He was found to have a loculated pneumonia in his right upper and middle lobes on CT scan. He had a CTA of his chest secondary to an elevated D-dimer. CTA was negative for PE. He did also have an episode of BART which resolved fairly quickly. He did have worsening of his oxygen status and there was initially some concern for Covid however he did have his first shot of Covid and he had 2 - Covid tests and given the presentation on imaging, I do feel that he is not Covid positive and this was not a Covid related case. He did complete his Levaquin for his Legionella and therefore does not need any further antibiotics on discharge. I discussed with him the plan for discharge today, he did not require any oxygen ambulation or at rest and he expressed understanding of the risk and benefits of discharge today and would like to go home today. I did try to call [facility] 2. Hypertension, GERD, history of a pulmonary nodule which will need outpatient follow-up, as well as probable autoimmune disorder with concern for lupus, all chronic medical conditions which complicate his care. His home medication will be continued where necessary. Physical Exam Const alert, oriented x3 and no apparent distress Constitutional Narrative: Looks acutely ill General Appearance: cooperative Orientation / Consciousness: lethargic Exam Limitations: no limitations HEENT normocephalic and moist oral mucous membranes Eyes PERRL, EOMs intact bilaterally and conjunctivae normal Neck supple and no JVD Resp normal respiratory effort, normal air movement, no retractions, no use of accessory muscles and clear to auscultation bilaterally Auscultation: diminished lung sounds; Negative for crackles, rales, rhonchi or wheezes Cardio regular rate, regular rhythm, S1 normal heart sound, S2 normal heart sound and no murmurs GI soft to palpation, non-tender and non-distended; Negative for hepatosplenomegaly Extremity no clubbing, cyanosis or edema Skin no rashes or lesions noted Neuro no focal motor deficits and no sensory deficits noted Sensorium / Orientation: awake and alert Psych affect normal Appearance: appropriate Weight / BMI Weight Weight: 166 lb 0.129 oz Body Mass Index (BMI) 24.0 ABG / Lab / Microbiology Data Result Diagrams: 12/03/20 06:27 12/02/20 05:54 Microbiology: Microbiology 11/27/20 09:40 Bronchial Lavage - Right Middle Lobe Gram Stain - Final 11/27/20 09:40 Bronchial Lavage - Right Middle Lobe Respiratory Culture - Final Streptococcus mitis/ oralis Presumptive C albicans 11/25/20 08:35 Blood Culture (Wb) - Anticubital Left Blood Culture - Final No growth in 5 days. 11/25/20 09:51 Blood Culture (Wb) - Anticubital Right Blood Culture - Final No growth in 5 days. 11/26/20 14:20 Urine, Random Legionella Antigen - Final 11/26/20 14:20 Urine, Random Streptococcus pneumoniae Antigen (M - Final 11/25/20 12:05 Mucosa - Nose SARS-CoV-2 Antigen (Rapid) - Final D/C Instructions Discharge Diet: No restrictions Call your doctor if you observe: Fever of 101 or Higher, Shortness of breath, Dizziness, Swelling in the ankles, Chest pain and Increased palpitations (irregular heartbeat) Meaningful Use Info Meaningful Use Diagnoses (Choose all that apply): None applicable Discharge Plan Admission Admit Date/Time: 11/25/20 09:44 Attending Provider: Javon Espino Primary Care Provider: Javi Wilkerson Consulting Providers: Winston Barnard ; Asad Chance ; Jayme Mckeon ; Concepcion Trevino NP Discharge Orders/Prescriptions Prescriptions: Continued cholecalciferol (vitamin D3) 5,000 unit tablet 5,000 unit PO DAILY RF: 0 levothyroxine 88 mcg tablet 75 mcg PO DAILY RF: 0 diphenhydramine-acetaminophen [Tylenol PM Extra Strength] 25-500 mg tablet 1 tab PO QHS PRN (Reason: Sleep) RF: 0 prednisone 20 mg tablet 60 mg PO DAILY RF: 0 lisinopril 20 MG tablet 20 mg PO DAILY RF: 0 amlodipine 10 MG tablet 10 mg PO DAILY RF: 0 omeprazole 20 MG capsule 10 mg PO DAILY RF: 0 spironolactone 25 mg tablet 25 mg PO DAILY Qty: 90 RF: 3 aspirin [Adult Low Dose Aspirin] 81 mg tablet,delayed release (DR/EC) 81 mg PO DAILY RF: 0 Referrals / Follow Up: Javi Wilkerson MD [Primary Care Provider] - 12/11/20 11:20 am (Appointment is with Rl Terry N.P.) Concepcion Trevino NP, [employer] [Nurse Practitioner] - 12/17/20 1:15 pm Disposition Disposition (needs filled in before D/C Order can be placed): Home, Self Care Charges/Coding Visit Charges Inpatient E&M: 17564 Disch Hosp
[2020-12-04 12:06] LABS: Pathologist Review Reviewed
[2020-12-04 12:15] LABS: Pathologist Review Reviewed
[2020-12-04 12:22] LABS: Pathologist Review Reviewed
--- NOTE | 2020-12-06 13:31 | CASEMGMT ---
Addendum entered by Oneida Peralta 12/06/20 13:45: Pt called this SHENA GAMBINO back and states is 'doing a little better but it's a slow process.' Pt states no questions regarding discharge instructions/medications. Pt states has f/u scheduled and plans to keep. Pt also states is scheduled for heart cath with Dr. Michelle on 12/18/20. Pt states no suggestions for [facility] and states 'Everything was great and I was well pleased.' Pt voices no further questions/concerns/needs. Dereck CHATTERJEE CM Original Note: SHENA GAMBINO Discharge F/U Phone Call LACE: 13 Strata: 3 Discharge date: 12/04/20 Call date: 12/06/20 Call time: 1331 Attempted to reach pt without success, message left for pt to call this SHENA GAMBINO back if/when able. Dereck CHATTERJEE CM Admission dx: Sepsis
== END 2020-12-04 12:20 | disposition home or self-care (01) | DRG 177 ==
LOC: ED 09:46 → PCU 09:55 → ICU 11-26 12:39 → PCU 11-29 11:48
PROVIDERS: Internal Medicine Critical Care Medicine; Internal Medicine Infectious Disease; Student in an Organized Health Care Education/Training Program; Admitting Provider Family Medicine; Emergency Provider Emergency Medicine; PCP Family Medicine; Visit Provider Family Medicine
PROC: 0BJ08ZZ Inspection of Tracheobronchial Tree, Via Natural or Artificial Opening Endoscopic (ICD-10-PCS; CPT 31622; principal; 2020-11-27 08:45)
DX: A48.1 Legionnaires' disease (principal); J96.01 Acute respiratory failure with hypoxia; N17.9 Acute kidney failure, unspecified; I43 Cardiomyopathy in diseases classified elsewhere; D89.89 Other specified disorders involving the immune mechanism, not elsewhere classified; R91.1 Solitary pulmonary nodule; E03.9 Hypothyroidism, unspecified; E78.5 Hyperlipidemia, unspecified; I10 Essential (primary) hypertension; K21.9 Gastro-esophageal reflux disease without esophagitis; M79.7 Fibromyalgia; N40.0 Benign prostatic hyperplasia without lower urinary tract symptoms; Z79.82 Long term (current) use of aspirin; Z79.899 Other long term (current) drug therapy
CPT/HCPCS: 36415; 71045; 71275; 80048; 80053; 80076; 83605; 83735; 83880; 84484; 85025; 85379; 87040; 87070; 87077; 87102; 87186; 87205; 87206; 87252; 87426; 87449; 87635; 88108; 88305; 88312; 88313; 89050; 93005; 94660; 97110; 97116; 97162; 97166; 97530; 99251; 99285; J7030; J7040; J7050; Q9967; U0005; A4216; G0463; J1940; U0003

== ENCOUNTER → 2020-12-17 16:45 | Outpatient (CLI) | payer MEDICARE, SELFPAY ==
[2020-11-25 10:28] VITALS: BMI 24.0
[2020-12-17 17:08] LABS: Absolute Lymphocyte Count 0.98 X10^3/uL (0.83-4.51); Absolute Neutrophil Count 5.9 X10^3/uL (2.0-7.7); Basophil# 0.04 X10^3/uL; Basophil% 0.5 % (0-1); Eosinophil# 0.09 X10^3/uL; Eosinophils% 1.2 % (0-5); Hemoglobin 11.3 g/dL (13.0-16.5); Lymphocyte # 0.98 X10^3/ul (0.83-4.51); Lymphocyte % 12.8 % (19-41); Mean Corp Hgb Conc 32.3 g/dL (32-36); Mean Corpuscular Hgb 31.4 pg (27.0-32.0); Mean Corpuscular Volume 97.2 fL (80-94); Mean Platelet Vol. 8.8 fl (6.2-12.0); Monocyte# 0.55 X10^3/uL; Monocyte% 7.2 % (0-10); NRBC Flagged by Analyzer 0 % (0-5); Neutrophil # 5.93 X10^3/uL (2.7-7.7); Neutrophil % 77.1 % (47-70); Platelet Count 352 K/mm3 (150-450); RBC Distribution Width CV 14.2 % (11.6-14.6); RBC Distribution Width SD 50.2 fl (35.1-43.9); White Blood Count 7.7 K/mm3 (4.4-11.0)
[2020-12-17 17:36] LABS: ALB/GLOB Ratio 0.6 RATIO (0.9-2.4); AST(SGOT) 9 U/L (15-37); Alanine Aminotransfer ALT/SGPT 18 U/L (16-61); Albumin, Serum 2.6 g/dL (3.2-5.0); Alkaline Phosphatase 100 U/L (45-117); Anion Gap 4 (5-15); BUN 34 mg/dL (7-18); BUN/Creat Ratio 22.1 RATIO (10-20); Calcium,Total 8.6 mg/dL (8.5-10.1); Chloride 111 mmol/L (98-107); Creatinine, Serum 1.54 mg/dL (0.70-1.30); EST Glomerular Filtration Rate 47 mL/min (>60); Est Glom Filt Rate - Afr Amer 56 mL/min (>60); Globulin 4.4 g/dL (2.2-4.2); Glucose 98 mg/dL (74-106); Potassium 4.5 mmol/L (3.5-5.1); Sodium Level 142 mmol/L (136-145); Thyroid Stim Hormone (TSH) 2.42 uIU/mL (0.358-3.74)
== END ==
PROVIDERS: PCP Family Medicine Geriatric Medicine; Visit Provider Family Medicine Geriatric Medicine
DX: E55.9 Vitamin D deficiency, unspecified (principal); R53.83 Other fatigue
CPT/HCPCS: 36415; 80053; 82306; 84443; 85025

== ENCOUNTER → 2020-12-26 11:29 | Outpatient (CLI) | payer MEDICARE, SELFPAY ==
[2020-11-25 10:28] VITALS: BMI 24.0
[2020-12-26 12:37] LABS: Anion Gap 8 (5-15); BUN 28 mg/dL (7-18); BUN/Creat Ratio 16.2 RATIO (10-20); Calcium,Total 9.1 mg/dL (8.5-10.1); Chloride 110 mmol/L (98-107); Creatinine, Serum 1.73 mg/dL (0.70-1.30); EST Glomerular Filtration Rate 41 mL/min (>60); Est Glom Filt Rate - Afr Amer 49 mL/min (>60); Glucose 113 mg/dL (74-106); Potassium 4.4 mmol/L (3.5-5.1); Sodium Level 140 mmol/L (136-145)
== END ==
PROVIDERS: PCP Family Medicine Geriatric Medicine; Visit Provider Family Medicine Geriatric Medicine
DX: E86.0 Dehydration (principal)
CPT/HCPCS: 36415; 80048

== ENCOUNTER → 2021-01-02 08:56 | Outpatient (CLI) | payer MEDICARE, SELFPAY ==
[2020-11-25 10:28] VITALS: BMI 24.0
[2021-01-02 12:51] LABS: Anion Gap 8 (5-15); BUN 25 mg/dL (7-18); BUN/Creat Ratio 15.6 RATIO (10-20); Calcium,Total 9.1 mg/dL (8.5-10.1); Chloride 107 mmol/L (98-107); EST Glomerular Filtration Rate 45 mL/min (>60); Est Glom Filt Rate - Afr Amer 54 mL/min (>60); Glucose 93 mg/dL (74-106); Potassium 4.1 mmol/L (3.5-5.1); Sodium Level 139 mmol/L (136-145)
== END ==
PROVIDERS: Visit Provider Family Medicine Geriatric Medicine
DX: I10 Essential (primary) hypertension (principal)
CPT/HCPCS: 36415; 80048

== ENCOUNTER → 2021-01-17 09:27 | Outpatient (CLI) | payer MEDICARE, SELFPAY ==
[2021-01-17 12:26] LABS: Absolute Lymphocyte Count 1.21 X10^3/uL (0.83-4.51); Absolute Neutrophil Count 3.3 X10^3/uL (2.0-7.7); Basophil# 0.05 X10^3/uL; Basophil% 0.9 % (0-1); Eosinophil# 0.16 X10^3/uL; Hematocrit 38.6 % (40-54); Hemoglobin 12.4 g/dL (13.0-16.5); Lymphocyte # 1.21 X10^3/ul (0.83-4.51); Lymphocyte % 22.5 % (19-41); Mean Corp Hgb Conc 32.1 g/dL (32-36); Mean Corpuscular Hgb 30.8 pg (27.0-32.0); Mean Platelet Vol. 8.9 fl (6.2-12.0); Monocyte# 0.62 X10^3/uL; Monocyte% 11.5 % (0-10); NRBC Flagged by Analyzer 0 % (0-5); Neutrophil # 3.32 X10^3/uL (2.7-7.7); Neutrophil % 61.7 % (47-70); Platelet Count 309 K/mm3 (150-450); RBC Distribution Width CV 13.7 % (11.6-14.6); Red Blood Count 4.02 M/mm3 (4.6-6.2); White Blood Count 5.4 K/mm3 (4.4-11.0)
[2021-01-17 12:44] LABS: Anion Gap 7 (5-15); BUN 21 mg/dL (7-18); BUN/Creat Ratio 15.8 RATIO (10-20); Calcium,Total 9.1 mg/dL (8.5-10.1); Chloride 110 mmol/L (98-107); Creatinine, Serum 1.33 mg/dL (0.70-1.30); EST Glomerular Filtration Rate 55 mL/min (>60); Est Glom Filt Rate - Afr Amer 67 mL/min (>60); Glucose 96 mg/dL (74-106); Potassium 4.1 mmol/L (3.5-5.1); Sodium Level 141 mmol/L (136-145)
[2021-01-17 12:53] LABS: BNP,B-Type NATRIURETIC PEPTIDE 73.9 pg/mL (0-100)
== END ==
PROVIDERS: PCP Family Medicine Geriatric Medicine; Visit Provider Family Medicine Geriatric Medicine
DX: R60.9 Edema, unspecified (principal); R06.09 Other forms of dyspnea
CPT/HCPCS: 36415; 80048; 83880; 85025

== ENCOUNTER → 2021-01-17 10:08 | Outpatient (CLI) | payer MEDICARE, SELFPAY ==
--- NOTE | 2021-01-17 10:11 | VDLE_ITS ---
Reason For Study: Left leg edema RIGHT LEFT CFV is compressible, spontaneous, phasic, GSV is normal. competent and demonstrates normal CFV is compressible, spontaneous, phasic, augmentation. competent, and demonstrates normal Procedure augmentation. This is a venous duplex using B-mode, color FV is compressible, spontaneous, phasic, flow and spectral Doppler. competent and demonstrates normal Exam performed in department. augmentation. A preliminary report was called and/or faxed POP V is compressible, spontaneous, phasic, to [place]. competent and demonstrates normal augmentation. T/P Trunk is compressible. PTV is compressible. LT PerV is compressible. Nonvascularized structure noted in the left popliteal space measures approximently 1.31 x 2.73 x 5.37 cm. VL/Venous Duplex US, Unilateral Interpretation Summary Deep veins of the left lower extremity are patent and compressible segmentally. There is no evidence of left lower extremity deep vein thrombosis. Valvular competence appears intac t within the proximal deep venous system on the left . The left great saphenous vein appears patent a nd compressible segmentally. A non-vascular, heterogeneous structure is noted in the left popli teal space, measuring 1.31 cm x 2.73 cm x 5.37 cm. This may represent a popliteal cyst. Clinical gill elation is advised. Ordering Physician: Jose Hooks Referring Physician: Jose Hooks Chi Performed By: Oneida Mcallister RVT
== END ==
PROVIDERS: PCP Family Medicine Geriatric Medicine; Referring Provider Family Medicine Geriatric Medicine; Visit Provider Family Medicine Geriatric Medicine
DX: R60.0 Localized edema (principal); R06.09 Other forms of dyspnea
CPT/HCPCS: 36415; 80048; 83880; 85025; 93971

== ENCOUNTER → 2021-01-29 16:32 | Outpatient (CLI) | payer MEDICARE, SELFPAY ==
[2021-01-29 17:07] LABS: Erythrocyte Sedimentation Rate 13 mm/hr (0-20)
[2021-01-29 17:36] LABS: Anion Gap 5 (5-15); BUN 19 mg/dL (7-18); BUN/Creat Ratio 16.2 RATIO (10-20); CPK Total, Creatine Kinase 57 U/L (39-308); Calcium,Total 8.9 mg/dL (8.5-10.1); Chloride 111 mmol/L (98-107); Creatinine, Serum 1.17 mg/dL (0.70-1.30); EST Glomerular Filtration Rate 64 mL/min (>60); Est Glom Filt Rate - Afr Amer 78 mL/min (>60); Glucose 96 mg/dL (74-106); Potassium 3.9 mmol/L (3.5-5.1); Sodium Level 142 mmol/L (136-145); Thyroid Stim Hormone (TSH) 1.16 uIU/mL (0.358-3.74)
== END ==
LOC: LABSPEC 16:36 → LAB 01-30 10:35
PROVIDERS: PCP Family Medicine Geriatric Medicine; Visit Provider Family Medicine Geriatric Medicine
DX: I10 Essential (primary) hypertension (principal); E03.9 Hypothyroidism, unspecified; R06.02 Shortness of breath
CPT/HCPCS: 36415; 80048; 82550; 84443; 85652

== ENCOUNTER → 2021-01-31 10:42 | Outpatient (CLI) | payer MEDICARE, SELFPAY ==
[2021-01-31 11:36] LABS: Hematocrit 36.8 % (40-54); Hemoglobin 12.1 g/dL (13.0-16.5); Mean Corp Hgb Conc 32.9 g/dL (32-36); Mean Corpuscular Hgb 31.4 pg (27.0-32.0); Mean Corpuscular Volume 95.6 fL (80-94); Mean Platelet Vol. 9.7 fl (6.2-12.0); Platelet Count 320 K/mm3 (150-450); RBC Distribution Width CV 13.3 % (11.6-14.6); RBC Distribution Width SD 46.9 fl (35.1-43.9); Red Blood Count 3.85 M/mm3 (4.6-6.2); White Blood Count 13.1 K/mm3 (4.4-11.0)
[2021-01-31 11:44] LABS: Prothrombin Time (Protime)PT. 12.9 SECONDS (11.7-14.9)
[2021-01-31 11:45] LABS: Partial Thromboplast Time 29.5 Seconds (24.1-36.2)
[2021-01-31 11:52] LABS: Anion Gap 4 (5-15); BUN 34 mg/dL (7-18); BUN/Creat Ratio 28.6 RATIO (10-20); Calcium,Total 9.1 mg/dL (8.5-10.1); Chloride 113 mmol/L (98-107); Creatinine, Serum 1.19 mg/dL (0.70-1.30); EST Glomerular Filtration Rate 63 mL/min (>60); Est Glom Filt Rate - Afr Amer 76 mL/min (>60); Glucose 104 mg/dL (74-106); Potassium 4.6 mmol/L (3.5-5.1); Sodium Level 142 mmol/L (136-145)
== END ==
PROVIDERS: Internal Medicine Cardiovascular Disease; PCP Family Medicine Geriatric Medicine; Referring Provider Physician Assistant Medical; Visit Provider Physician Assistant Medical
DX: I10 Essential (primary) hypertension (principal); I43 Cardiomyopathy in diseases classified elsewhere; R94.39 Abnormal result of other cardiovascular function study; E78.5 Hyperlipidemia, unspecified; R06.00 Dyspnea, unspecified; I49.9 Cardiac arrhythmia, unspecified
CPT/HCPCS: 36415; 80048; 85027; 85610; 85730

== ENCOUNTER 2021-02-22 12:24 | Observation (INO) | payer MEDICARE, SELFPAY ==
[2020-11-07 06:26] VITALS: BMI 23.7
[2021-02-21 08:08] VITALS: BMI 23.6
--- NOTE | 2021-02-21 18:38 | PCM.HP.BLA ---
History and Physical Date of Admission: 02/22/21 [facility] [address] [place] [address] [id number] OFFICE VISITDate of Service: 01/31/21 MR#:[id number]:[id number]: KULWANT ANDRADE [facility] #:[id number]:[id number] Provider: FAHEEM Hanley/Sex: 80/M [facility] HPI History of Present Illness Details: This is a 80-year-old white male who presents today for outpatient cardiovascular follow-up post upon a history of PACs, PVCs, cardiomyopathy, hyperlipidemia, and hypertension with concerns of shortness of breath/dyspnea on exertion as well as lower extremity edema. He notes that since getting his COVID-19 vaccination he has felt somewhat more short of breath and dyspneic with exertion as well as having lower extremity myalgias. He has had also some intermittent lower extremity peripheral pitting edema especially more so on the left than the right. Patient did undergo a stress test which was noted to be abnormal. He was in the process of being scheduled for a diagnostic heart catheterization to further assess for this. He then was hospitalized for sepsis and this was placed on hold. He is here today to rediscuss this. Pt feels that he is recovering, he does feel that he is SOB with exertion. He can not walk 100ft down to his mailbox and not get SOB. He does not have any chest pain. He does not have any palpitations. He does not have any lightheadedness/dizziness. He does not have any edema. Intake Vital Signs 01/31/21 09:49 Height 5 ft 11 in Weight: 169 lb BMI 23.6 BP 143/82 H Blood Pressure Location Lt brachial Position Sitting Respiration 18 Pulse 87 Pulse Source Monitor Pulse Oximetry (%) 95 Intake Visit Reasons: F/U - CATH HAD BEEN POSTPONED Materials Tech Required: No Accompanied by: None Is patient in pain?: No Allergies erythromycin base Allergy (Verified 01/31/21 09:49) Hives amoxicillin [From Augmentin] Adverse Reaction (Severe, Verified 01/31/21 09:49) Itching atorvastatin Adverse Reaction (Severe, Verified 01/31/21 09:49) myalgias clavulanic acid [From Augmentin] Adverse Reaction (Severe, Verified 01/31/21 09:49) Itching fenofibrate [From Tricor] Adverse Reaction (Severe, Verified 01/31/21 09:49) myalgias levofloxacin [From Levaquin] Adverse Reaction (Unknown, Verified 01/31/21 09:49) Unknown Medications cholecalciferol (vitamin D3) 125 mcg (5,000 unit) tablet 5,000 unit PO DAILY 07/21/18 [History Confirmed 01/31/21] levothyroxine 88 mcg tablet 75 mcg PO DAILY 09/22/19 [History Confirmed 01/31/21] diphenhydramine 25 mg-acetaminophen 500 mg tablet 1 tab PO QHS PRN 10/31/20 [History Confirmed 01/31/21] prednisone 20 mg tablet 60 mg PO DAILY tab 10/31/20 [History Confirmed 01/31/21] famotidine 40 mg tablet 40 mg PO DAILY 01/31/21 [History Confirmed 01/31/21] metoprolol succinate 25 mg tablet,extended release 24 hr 25 mg PO BID 01/31/21 [History Confirmed 01/31/21] [facility] Medical History Acid reflux 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 Bigeminy BPH (benign prostatic hyperplasia) Cardiomyopathy in other diseases classified elsewhere D-dimer, elevated DDD (degenerative disc disease) Dyspnea on exertion Edema Essential hypertension Fibromyalgia Hemorrhoid HTN (hypertension) Hyperlipidemia Hypothyroid Nasal sinus polyp Premature atrial contractions Premature ventricular contraction Pulmonary nodule Syncope White coat syndrome with hypertension Surgical History H/O hemorrhoidectomy History of back surgery History of cholecystectomy History of kidney surgery History of radiofrequency ablation procedure for cardiac arrhythmia (~10/2002) Hx of appendectomy Family History Father CVA (cerebral vascular accident) Hypertension Heart disease Mother CAD (coronary artery disease) Brother Hypertension Brother CAD (coronary artery disease) Hypertension Sister Hypertension Sister Patent foramen ovale Sister Hypertension Lung cancer Social History Smoking Status: Never smoker alcohol intake: never substance use type: does not use ROS Const Const: Negative for fatigue, weakness, frequent falls, excessive sweating, weight gain or weight loss Eyes Eyes: Negative for transient loss of vision, blurry vision or change in vision ENT ENT: Negative for dizziness or balance problems Cardio Chest Pain: No Palpitations: No Edema: Left (pedal ) Muscle aches with walking: None Resp Respiratory: Positive for SOB with activity (increased in the last 2 months; hard to get a deep breath); Negative for SOB at rest, SOB orthopnea\SOB lying down, Cough, Coughing up blood/hemoptysis, chest congestion, pain on inspiration, snoring, stridor, wheezing, crackles, paroxysmal nocturnal dyspnea or other GI GI: Negative vomiting or vomiting blood/hematemesis : Negative for hematuria Musc Musc: Positive for muscle weakness (Bilat LE; feel heavy) and joint pain (generalized in joints post COVID vaccine); Negative for muscle aches/ myalgia or balance problems Skin Skin: Negative non-healing lesions or rash Neuro Neuro: Negative for dizziness, lightheadedness, orthostatic symptoms, frequent falls, weakness or blurry vision Ifeanyi Hematologic/Lymphatic: Negative for easy bleeding Endo Endo: Negative for fatigue or excessive sweating Psych Psych: Negative for anxiety or depression Allergy Allergy/Immunology: Negative for hives and Negative for rash Cardiology Exam Const Appearance: cooperative, healthy appearing, comfortable, no acute distress, well developed and well groomed Nutritional Appearance: overweight Orientation: alert, awake and oriented x3 Head Head: normal to inspection, normocephalic and atraumatic Ears: hearing grossly normal bilaterally Nose: external nose normal Face and Sinus: face symmetric Eyes Eyelids: eyelids normal Conjunctivae: conjunctivae normal Pupils: PERRL EOM: EOM intact bilaterally Neck Neck: normal visual inspection and full ROM Carotids: normal carotid upstroke Chest Chest inspection: normal inspection of the chest, symmetric chest movement and normal respiratory effort Auscultation: Bilateral: Clear to Auscultation Cardio Palpation: normal PMI Rate: regular rate Rhythm: regular rhythm and ectopic beats Heart sounds: S1 normal and S2 normal GI GI: normal to inspection, soft and bowel sounds present Neuro General: patient alert, patient awake, patient oriented x3 and moves all extremities Skin Skin: no rashes or lesions noted Extremities Pulses: Normal: Right Radial Pulse and Left Radial Pulse Lower Extremity Edema: +1: Left and Trace: Right Psych Psychological: normal affect Assessment and Plan Assessment and Plan (1) Abnormal stress test: Status: Acute Orders: Orders: Partial Thromboplast Time Today Prothrombin Time w/INR Today Plan - Rina MAYEN PA: With patient's continued shortness of breath and abnormal stress test would like to proceed with a diagnostic heart catheterization. Patient is agreeable with this. Patient Instructions: Your heart cath is tentatively scheduled for 02/22- I will call you to confirm date and time You will need a gas truck driver that day. Start a baby ASA Nothing to eat or drink after midnight, In the morning with a small sip of water take your all of your morning medications. (2) Essential hypertension: Status: Chronic Orders: Orders: Partial Thromboplast Time Today Prothrombin Time w/INR Today Plan - Rina MAYEN, PA: Blood pressure is well controlled on current medications, we do not recommend any changes at this time. Plan Details Other Orders: Orders: Partial Thromboplast Time Today E78.5, I43, I49.9, R06.00 Prothrombin Time w/INR Today E78.5, I43, R06.00 Follow Up: 01/31/21 (keep as is) Coding Level of Care Code Off vis,est,level 4 Diagnoses Abnormal stress test R94.39 Essential hypertension I10 Coding Level of Care Code Off vis,est,level 4 Diagnoses Abnormal stress test R94.39 Essential hypertension I10 Supplemental Info Supplemental Information Date: 11-08-2020 Procedure: Pharmacologic stress nuclear imaging study Indications: Shortness of breath/dyspnea on exertion; fatigue; cardiac ectopy Consent: Per the patient Procedure: The patient underwent pharmacologic (Regadenoson 0.4mg ) evaluation with a peak heart rate of 103 beats per minute (72%predicted maximal heart rate) and a peak blood pressure of 122/72 mmHg. The baseline ECG demonstrated sinus rhythm. The peak pharmacologic ECG demonstrated no obvious ECG changes. There was an occasional PVC during recovery. There was no complaint of chest discomfort during pharmacologic infusion or recovery. The examination was discontinued secondary to completion of protocol. Impression: 1. Pharmacologic (Regadenoson) evaluation 2. Peak pharmacologic ECG with no obvious ECG changes. 3. There was an occasional PVC during recovery. 4. Nuclear images pending Myocardial perfusion imaging study: Technique: The patient was injected with 14.6 millicuries of technetium 99m Cardiolite and subsequently rest SPECT Cardiolite nuclear imaging was obtained in the horizontal long, vertical long, and short axis views. The patient underwent pharmacologic (Regadenoson) evaluation with a peak heart rate of 103 beats per minute (72% percent predicted maximal heart rate) and a peak blood pressure of 122/72 mmHg. The patient was injected with 44.1 millicuries of technetium 99m Cardiolite and subsequently stress SPECT Cardiolite nuclear imaging was obtained in the horizontal long, vertical long, and short axis views. A gated Cardiolite study at peak stress was obtained. Interpretation: Rest and stress SPECT Cardiolite nuclear imaging status post realignment, normalization, and attenuation correction demonstrate the appearance of body motion during image acquisition. At rest there appears to be relative uniform tracer uptake and myocardial perfusion appearing within normal limits. Status post stress there is notation of diminished myocardial perfusion/tracer uptake in the distal inferolateral lateral apical segments. There are similar type findings on the stress polar map images.. There is end systolic thickening and brightening. The gated Cardiolite study demonstrates myocardial thickening and inward wall motion. The reported LVEF is 83%. Impression: 1. Rest and stress SPECT cardiac nuclear imaging demonstrate an element of body motion during image acquisition as well as post stress an element of diminished myocardial perfusion/tracer uptake in portions of the distal inferolateral/lateral apical segments concerning for stress-induced myocardial ischemia, however, based upon the body motion during image acquisition an element of shifting soft tissue attenuation/artifact cannot necessarily be excluded. 2. The gated Cardiolite study reports an LVEF of 83%. Echocardiogram 10/2020: Left ventricular systolic function is normal. The estimated ejection fraction is 65 %. The left atrium is mildly enlarged. There is mild mitral annular calcification. Trivial mitral valve insufficiency. Trivial tricuspid valve insufficiency. Trivial pulmonic valve insufficiency. Right ventricular systolic pressure estimated to be 34 mmHg. No evidence for diastolic dysfunction. Labs: No Data to Display Diagnostics: Venous Doppler Study Pulmonary: No Data to Display 01/31/21 1315<Electronically signed by Rina MAYEN>Date Rina Phoenix Signature:Date (if applicable) CC: Dr. Jose Hooks MD ~ Assessment & Plan Addt'l Comments I have re-examined the patient. There are no clinical changes since date of exam.
--- NOTE | 2021-02-22 09:36 | CASEMGMT ---
According to the [facility] website, the following are in-network tertiary facilities: [facility], [place], [facility], [facility], [facility], [facility], and . Dereck CHATTERJEE CM
--- NOTE | 2021-02-22 09:58 | CL.D_ITS ---
Patient Name: KULWANT ANDRADE Study Date: 02/22/2021 Performing: Geovanny Michelle MD Ht: 70.86 inches 180 cm : 1940 Wt: 169.76 lbs 77 kg Age: 80 Gender: male BSA: 1.96 PROCEDURE(S) PERFORMED [id number]/COR/LV CLINICAL PROFILE AND INDICATIONS Indications: Suspected CAD Heart Failure: None Stress/Imaging Date: 11/08/2020tress Test with SPECT MPI: Positive Intermediate Risk Angina Classification Anginal Classification w/in 2 Weeks: Anginal Equivalent Dyspnea CAD Presentations: Other: dyspnea on exertion CONCLUSIONS Elevated Left Ventricular End Diastolic Pressure Normal LV size, wall motion,and systolic function LVEF: by LV gram 55 % [place] Multivessel CAD Collateral Flow: left to right RECOMMENDATIONS Medical therapy Surgery consult for coronary revascularization DESCRIPTION OF PROCEDURE The patient arrived to the procedure lab. The risks and benefits of the procedure as well as a full d escription of our services here and current unavailability of surgical backup were fully explained to the patient and/or their significant other prior to the catheterization. The Timeout was completed, verifying the correct patient and procedure. The patient's procedural site was prepped and draped in the usual fashion. Local anesthetic was given subcutaneously to right radial region with Lidocaine 2% . Using a modified Seldinger technique, arterial access was obtained via the right radial artery, a 6 Fr sheath was inserted. Right Coronary Artery selective angiography was then performed in multiple v iews using a 5 Fr. 4.0 [place] catheter. Right Coronary Artery selective angiography was then performed in multiple views using a 5 Fr. 4.0 [place] catheter. Left Coronary Artery selective angiography was p erformed in multiple views using a 5 Fr. 4.0 [place] catheter. Left Ventriculography was performed in PAL[place] projection using a 5 Fr. Pig[place] catheter. LV to AO pullback pressures were then rec orded.The arterial sheath was pulled and a TR Band was applied for hemostasis 12cc air CORONARY ANGIOGRAPHY DOMINANCE: Right Dominant LEFT HEART ASSESSMENT Left Ventricular Ejection Fraction: by LV Gram 55 % Normal LV wall motion Elevated Left Ventricular End Diastolic Pressure LVEDP: 26 mmHg LEFT MAIN: Angiographically normal LEFT ANTERIOR DESCENDING ARTERY: PROX LAD: somewhat long: diffuse: 85 % Stenosis, 25 % Stenosis MID LAD: s/p SP: eccentric: 25 % Stenosis, 25 % Stenosis CIRCUMFLEX ARTERY: OM 1: Proximal - somewhat long: diffuse: prebirfurcation: 90 % Stenosis RIGHT CORONARY ARTERY: PROX RCA: long: diffuse: 90 % Stenosis RT PDA: Distal - small vessel: 75 % Stenosis COLLATERAL FLOW: Collateral flow from Left to Right AORTIC ROOT: Angiographically normal COMPLICATIONS No Complications PROCEDURE MEDICATIONS Fentanyl 50 mcg IV Versed 1 mg IV Morphine 50 mg IV Versed 1 mg IV Oxygen: 2 L/min via nasal cannula Heparin given [place] 02/22/2021 08:57:06 Verapamil 2.5mg, Ntg 100mcgs, 3000 units of Heparin given [place] 02/22/2021 08:57:06 SUMMARY OF HEMODYNAMIC DATA Time AIR REST ECG 07:41:19 AO 150/88 (113) SA 09:04:39 AO 162/88 (117) 09:16:43 LV 174/11, 32 09:26:50 LV 161/4, 26 09:28:09 LVp 169/6, 27 09:28:22 AOp 167/85 (116) 09:28:27 RM AIR REST 09:39:36 Signed By Geovanny Michelle MD On 02/22/2021 09:58:05 Geovanny Michelle MD
[2021-02-22 16:11] VITALS: BP 148/93; PULSE 65; RESP 16; TEMP 37.1; O2SAT 98
[2021-02-22] MEDS: HEPARIN/D5w 25,000 UNITS 25,000 UNITS/250 ML IV.SOLN. 11 UNITS IV (18:09)
[2021-02-22 19:23] VITALS: PULSE 71
[2021-02-22 19:26] LABS: Prothrombin Time (Protime)PT. 12.8 SECONDS (11.7-14.9)
[2021-02-22 20:44] VITALS: BP 158/84; PULSE 69; RESP 15; TEMP 36.7; O2SAT 96
[2021-02-22 22:00] VITALS: PULSE 69; RESP 15; O2SAT 96
[2021-02-22 23:40] VITALS: PULSE 66
--- NOTE | 2021-02-22 23:46 | NURSING ---
RCVD CALL FROM [facility] WITH BED ASSIGNMENT FOR TRANSFER. REPORT CALLED TO SUE CHATTERJEE AT THIS TIME. CHARGE NURSE CALLING PHYSICIANS TO ARRANAGE TRANSPORT. PT AWARE AND CONSENT OBTAINED
[2021-02-23 02:00] VITALS: BP 159/86; PULSE 69; RESP 15; TEMP 36.7; O2SAT 96
[2021-02-23 03:24] VITALS: PULSE 67
== END 2021-02-23 03:52 | disposition short-term general hospital (02) ==
LOC: PCU 17:12
PROVIDERS: Admitting Provider Internal Medicine Cardiovascular Disease; PCP Family Medicine Geriatric Medicine; Referring Provider Internal Medicine Cardiovascular Disease; Visit Provider Internal Medicine Cardiovascular Disease
DX: I25.10 Atherosclerotic heart disease of native coronary artery without angina pectoris (principal); I10 Essential (primary) hypertension; I49.3 Ventricular premature depolarization; E78.5 Hyperlipidemia, unspecified; R94.39 Abnormal result of other cardiovascular function study; I42.9 Cardiomyopathy, unspecified; R06.02 Shortness of breath; R60.0 Localized edema; K21.9 Gastro-esophageal reflux disease without esophagitis; N40.0 Benign prostatic hyperplasia without lower urinary tract symptoms; M79.7 Fibromyalgia; E03.9 Hypothyroidism, unspecified; Z79.890 Hormone replacement therapy; Z79.899 Other long term (current) drug therapy; Z79.82 Long term (current) use of aspirin; Z79.52 Long term (current) use of systemic steroids
CPT/HCPCS: 36415; 85610; 85730; 93458; 96365; 96366; 99152; 99153; J7040; Q9967; C1769; C1894

== ENCOUNTER 2021-03-05 18:25 | Inpatient (IN) | payer MEDICARE, SELFPAY ==
[2021-03-05 18:55] VITALS: BP 129/80; PULSE 79; RESP 17; TEMP 36.4; O2SAT 92
--- NOTE | 2021-03-05 20:55 | HP.PCM_ITS ---
HPI - General General Date of Admission: 03/05/21 HPI Narrative 02/22/2021 Dr. Michelle heart cath showed multivessel coronary artery disease. 02/23/2021 KULWANT ANDRADE, is a 80 Male who presents to [facility] for CABG evaluation. Recent hospitalization for Legionnaire's pneumonia. Recent polymyalgia rheumatica presentation with positive KHANH. 02/26/2021 Dr. Wrener performed CABG x 3. 03/01/2021 Transfused 1 unit PRBC. 03/02/2021 No pain, appears well, able to walk, had bowel movement. Good oxygen saturations on room air. 03/05/2021 Admit to TCU with debility, here for rehabilitation, strengthening, prior to discharge home alone. 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 Bigeminy BPH (benign prostatic hyperplasia) CAD (coronary artery disease) Cardiomyopathy in other diseases classified elsewhere D-dimer, elevated DDD (degenerative disc disease) Dyspnea on exertion Edema Essential hypertension Fibromyalgia Hemorrhoid HTN (hypertension) Hyperlipidemia Hypothyroid Nasal sinus polyp Premature atrial contractions Premature ventricular contraction Pulmonary nodule Syncope White coat syndrome with hypertension Home Medications cholecalciferol (vitamin D3) 125 mcg (5,000 unit) tablet 5,000 unit PO DAILY 07/21/18 [History Last Taken 02/22/21] levothyroxine 88 mcg tablet 75 mcg PO DAILY 09/22/19 [History Last Taken 02/22/21] diphenhydramine 25 mg-acetaminophen 500 mg tablet 1 tab PO QHS PRN 10/31/20 [History Last Taken Unknown] prednisone 20 mg tablet 60 mg PO DAILY tab 10/31/20 [History Last Taken 02/22/21] famotidine 40 mg tablet 40 mg PO DAILY 01/31/21 [History Last Taken 02/22/21] metoprolol succinate 25 mg tablet,extended release 24 hr 25 mg PO BID 01/31/21 [History Last Taken 02/22/21] aspirin [Baby Aspirin] 81 mg PO DAILY 02/22/21 [History Last Taken 02/22/21] Allergy/AdvReac Type Severity Reaction Status Date / Time erythromycin base Allergy Hives Verified 01/31/21 09:49 amoxicillin [From Augmentin] AdvReac Severe Itching Verified 01/31/21 09:49 atorvastatin AdvReac Severe myalgias Verified 01/31/21 09:49 clavulanic acid AdvReac Severe Itching Verified 01/31/21 09:49 [From Augmentin] fenofibrate [From Tricor] AdvReac Severe myalgias Verified 01/31/21 09:49 levofloxacin [From Levaquin] AdvReac Unknown Unknown Verified 01/31/21 09:49 Family History Father CVA (cerebral vascular accident) Hypertension Heart disease Mother CAD (coronary artery disease) Brother Hypertension Brother CAD (coronary artery disease) Hypertension Sister Hypertension Sister Patent foramen ovale Sister Hypertension Lung cancer Surgical History H/O hemorrhoidectomy History of back surgery History of cholecystectomy History of coronary artery bypass graft x 3 (~02/26/21) History of kidney surgery History of radiofrequency ablation procedure for cardiac arrhythmia (~10/2002) Hx of appendectomy Social History (Updated 03/05/21 @ 21:[address] Jose Hooks MD) household members: none Smoking Status: Never smoker alcohol intake: never substance use type: does not use ROS Constitutional Constitutional: Denies chills, fever(s) or weight gain ENT HEENT: Denies headache(s), nasal congestion or nasal discharge Cardiovascular Cardiovascular: Denies chest pain or palpitations Respiratory/Chest Respiratory/Chest: Denies cough, excessive phlegm production or shortness of breath with exertion Gastrointestinal Gastrointestinal: Denies abdominal pain, nausea or vomiting Genitourinary Genitourinary: Denies dysuria Musculoskeletal Musculoskeletal: Denies joint pain or joint swelling Integumentary Integumentary: Denies rash or wounds Neurologic Neurologic: Denies focal weakness, numbness or tingling Psychiatric Psychiatric: Reports auditory hallucinations; Denies anxiety, depression, homicidal ideation or suicidal ideation Physical Exam Const alert and oriented x3 General Appearance: cooperative HEENT normocephalic Eyes PERRL and EOMs intact bilaterally Neck supple, no JVD and no carotid bruits Resp normal respiratory effort, normal air movement and clear to auscultation bilaterally Cardio regular rate and regular rhythm GI normal to inspection, nondistended, normoactive bowel sounds, non-tender and non-distended Extremity normal capillary refill General Extremity: Negative for edema Skin no rashes or lesions noted General Skin Exam: no breakdown Psych affect normal Appearance: appropriate Results Lab / Micro Data Result Diagrams: 03/06/21 05:24 03/06/21 05:24 Assessment & Plan Assessment/Plan (1) Debility: (2) CAD (coronary artery disease): (3) History of coronary artery bypass graft x 3: (4) Vitamin D deficiency: (5) Gastroesophageal reflux disease: (6) Hypothyroidism: (7) Postoperative anemia: PLAN: 80 year old male with below past medical history hospitalized for multivessel coronary artery disease, underwent CABG x 3 02/26/[address] Werner, postoperative course complicated by anemia, admitted to TCU with de bility, here for rehabilitation, strengthening, prior to discharge home alone. * Debility - PT/OT. * Pain - Tylenol 1000mg Q6H prn pain (1-5), Tramadol 50mg Q6H prn pain (6-10), Lidoderm patch topical daily. * Bowel - Miralax 17gm daily, Senna/colace 2 tablets twice daily, Dulcolax 10mg daily PRN. * Adult immunization - Administer prevnar 13, pneumovax 23, fluzone, covid19 vaccine as appropriate. * DVT prophylaxis - Hold, Hemoglobin 8.0. * Coronary artery disease status post cabg x 3 - Metoprolol 50mg Q8H, Lisinopril 5mg daily, Aldactone 25mg daily, Aspirin 81mg daily. * Hypothyroidism - Levothyroxine 75mcg daily. * Hypomagnesemia - Magnesium chloride 128mg daily. * Insomnia - Melatonin 3mg qhs prn. * GERD - Pantoprazole 40mg daily. * Hyperlipidemia - Atorvastatin 40mg qhs.
[2021-03-05 22:00] VITALS: RESP 18; BMI 23.7
[2021-03-05 22:37] VITALS: BP 140/71; PULSE 80
[2021-03-05] MEDS: Metoprolol Tartrate 50 MG Tablet PO (22:37)
[2021-03-05] MEDS: Senna/Docusate Sodium 1 Tablet 2 TABLET PO (22:42)
[2021-03-05] MEDS: Acetaminophen 500 MG Tablet 1000 MG PO (22:46)
[2021-03-05] MEDS: MELATONIN 3 MG TABLET PO (22:47)
[2021-03-06 05:46] LABS: Absolute Lymphocyte Count 1.22 X10^3/uL (0.83-4.51); Absolute Neutrophil Count 4.3 X10^3/uL (2.0-7.7); Basophil# 0.03 X10^3/uL; Basophil% 0.4 % (0-1); Eosinophil# 0.58 X10^3/uL; Eosinophils% 8.2 % (0-5); Hematocrit 25.5 % (40-54); Lymphocyte # 1.22 X10^3/ul (0.83-4.51); Lymphocyte % 17.3 % (19-41); Mean Corp Hgb Conc 31.4 g/dL (32-36); Mean Corpuscular Hgb 30.8 pg (27.0-32.0); Mean Corpuscular Volume 98.1 fL (80-94); Mean Platelet Vol. 9.6 fl (6.2-12.0); Monocyte# 0.83 X10^3/uL; Monocyte% 11.7 % (0-10); NRBC Flagged by Analyzer 0.4 % (0-5); Neutrophil # 4.26 X10^3/uL (2.7-7.7); Neutrophil % 60.3 % (47-70); Platelet Count 383 K/mm3 (150-450); RBC Distribution Width SD 47.7 fl (35.1-43.9); White Blood Count 7.1 K/mm3 (4.4-11.0)
[2021-03-06 06:25] LABS: Anion Gap 7 (5-15); BUN 17 mg/dL (7-18); BUN/Creat Ratio 17.4 RATIO (10-20); Calcium,Total 7.8 mg/dL (8.5-10.1); Chloride 106 mmol/L (98-107); Creatinine, Serum 0.98 mg/dL (0.70-1.30); EST Glomerular Filtration Rate 79 mL/min (>60); Est Glom Filt Rate - Afr Amer 96 mL/min (>60); Estimated Creatinine Clearance 68.19 ml/min; Glucose 86 mg/dL (74-106); Potassium 4.2 mmol/L (3.5-5.1); Sodium Level 142 mmol/L (136-145)
[2021-03-06] MEDS: Lidocaine 5% Patch 1 PATCH TOPICAL (06:26)
[2021-03-06 06:27] VITALS: BP 143/80; PULSE 76
[2021-03-06] MEDS: Enoxaparin 30 MG/0.3 ML Syringe SC (06:27)
[2021-03-06] MEDS: Polyethylene Glycol 3350 17 GM PACKET PO (06:27)
[2021-03-06] MEDS: Metoprolol Tartrate 50 MG Tablet PO ×3 (06:27→21:10)
[2021-03-06] MEDS: Magnesium Chloride 64 MG Delay Rel.Tablet 128 MG PO (06:28)
[2021-03-06] MEDS: Levothyroxine 75 MCG Tablet PO (06:28)
[2021-03-06] MEDS: Pantoprazole Sodium 40 MG Tablet PO (06:28)
[2021-03-06] MEDS: Spironolactone 25 MG Tablet PO (06:28)
[2021-03-06] MEDS: Senna/Docusate Sodium 1 Tablet 2 TABLET PO (06:28)
[2021-03-06] MEDS: Lisinopril 5 MG Tablet PO (06:29)
[2021-03-06] MEDS: Aspirin 81 MG TAB.CHEW PO (08:25)
--- NOTE | 2021-03-06 09:19 | CASEMGMT ---
Social Work [employer] Specialist met w/pt in room, educated pt to role of SW in TCU. Code status of full code confirmed. MOLST form reviewed, communication to physician, form placed in chart. SW educated pt that his insurance will authorize for pt to be here a certain amount of time, once we are close to the end of that time, we will go to insurance to request additional time if needed. SW explained once we know how long insurance authorizes pt it will be communicated to him. Pt states understanding. Pt plans to return home at discharge, open to home care and any needed DME. Pt's girlfriend from [place] is available to stay w/pt at discharge. SW will continue to follow. MOON Key
--- NOTE | 2021-03-06 10:24 | PCM.PN.RX ---
Progress Note - Pharmacy Subjective: TCU Admission Objective: Allergies erythromycin base Allergy (Verified 01/31/21 09:49) Hives amoxicillin [From Augmentin] Adverse Reaction (Severe, Verified 01/31/21 09:49) Itching atorvastatin Adverse Reaction (Severe, Verified 01/31/21 09:49) myalgias clavulanic acid [From Augmentin] Adverse Reaction (Severe, Verified 01/31/21 09:49) Itching fenofibrate [From Tricor] Adverse Reaction (Severe, Verified 01/31/21 09:49) myalgias levofloxacin [From Levaquin] Adverse Reaction (Unknown, Verified 01/31/21 09:49) Unknown Current Medications Generic Name Dose Route Start Last Admin Trade Name Freq PRN Reason Stop Dose Admin Acetaminophen 1,000 mg 03/05/21 21:14 03/05/21 22:46 Acetaminophen 500 Mg Tablet PO 1,000 mg Q6H PRN PRN Administration Pain Score 1-5 Aspirin 81 mg 03/06/21 08:00 03/06/21 08:25 Aspirin 81 Mg Tab.Chew PO 81 mg BREAKFAST VASILE Administration Bisacodyl 10 mg 03/05/21 21:12 Bisacodyl 5 Mg Tablet PO DAILY PRN CONSTIPATION Levothyroxine Sodium 75 mcg 03/06/21 06:00 03/06/21 06:28 Levothyroxine 75 Mcg Tablet PO 75 mcg DAILY@0600 VASILE Administration Lidocaine 1 patch 03/06/21 06:00 03/06/21 06:26 Lidocaine 5% Patch TOPICAL 1 patch DAILY VASILE Administration Protocol Lisinopril 5 mg 03/06/21 06:00 03/06/21 06:29 Lisinopril 5 Mg Tablet PO 5 mg DAILY VASILE Administration Magnesium Chloride 128 mg 03/06/21 06:00 03/06/21 06:28 Magnesium Chloride 64 Mg Delay Rel.Tablet PO 128 mg DAILY VASILE Administration Melatonin 3 mg 03/05/21 19:46 03/05/21 22:47 Melatonin 3 Mg Tablet PO 3 mg QHS PRN Administration SLEEP Metoprolol Tartrate 50 mg 03/06/21 06:00 03/06/21 06:27 Metoprolol Tartrate 50 Mg Tablet PO 50 mg Q8 VASILE Administration Pantoprazole Sodium 40 mg 03/06/21 06:00 03/06/21 06:28 Pantoprazole Sodium 40 Mg Tablet PO 40 mg DAILY VASILE Administration Polyethylene Glycol 17 gm 03/06/21 06:00 03/06/21 06:27 Polyethylene Glycol 3350 17 Gm Packet PO 17 gm DAILY VASILE Administration Senna/Docusate Sodium 2 tablet 03/05/21 21:15 03/06/21 06:28 Senna/Docusate Sodium 1 Tablet PO 2 tablet BID VASILE Administration Spironolactone 25 mg 03/06/21 06:00 03/06/21 06:28 Spironolactone 25 Mg Tablet PO 25 mg DAILY VASILE Administration Tramadol HCl 50 mg 03/05/21 21:14 Tramadol 50 Mg Tablet PO 03/11/21 19:00 Q6H PRN PRN Pain Score 6-10 Tuberculin PPD 0.1 ml 03/13/21 10:00 Tuberculin,Purif.Prot.Deriv. 50 Tu/Ml Vial ID 03/13/21 10:01 X1 ONE Problem List (Last Reviewed 03/05/21 @ 21:[address] Jose Hooks MD) Postoperative anemia (Acute) Hypothyroidism (Acute) Gastroesophageal reflux disease (Acute) Vitamin D deficiency (Acute) Debility (Acute) History of coronary artery bypass graft x 3 (Acute ~02/26/21) CAD (coronary artery disease) (Acute) Vital Signs Temp Pulse Resp BP Pulse Ox 97.6 F L 76 18 143/80 H 92 03/05/21 18:55 03/06/21 06:27 03/05/21 22:00 03/06/21 06:27 03/05/21 18:55 Oxygen Delivery Method Room Air Weight: 76.742 kg Body Mass Index (BMI) 23.7 Sodium 142 mmol/L (136-145) 03/06/21 05:24 Potassium 4.2 mmol/L (3.5-5.1) 03/06/21 05:24 Chloride 106 mmol/L (98-107) 03/06/21 05:24 Carbon Dioxide 29.0 mmol/L (21.0-32.0) 03/06/21 05:24 Anion Gap 7 (5-15) 03/06/21 05:24 BUN 17 mg/dL (7-18) 03/06/21 05:24 Creatinine 0.98 mg/dL (0.70-1.30) 03/06/21 05:24 Est GFR (MDRD) Af Amer 96 mL/min (>60) 03/06/21 05:24 Est GFR (MDRD) Non-Af 79 mL/min (>60) 03/06/21 05:24 BUN/Creatinine Ratio 17.4 RATIO (10-20) 03/06/21 05:24 Glucose 86 mg/dL (74-106) 03/06/21 05:24 Assessment/Plan: *1. Pain: acetaminophen 1000mg PO Q6H PRN pain 1-5, tramadol 50mg PO Q6H PRN pain 6-10 (thru 03/11) and lidocaine 5% patch 1 patch topical daily. Please consider changing acetaminophen pain scale to pain 1-10 to account for gap in pain scale coverage after tramadol stop date. Thanks. Please continue to monitor for increased pain. 2. CAD s/p CABG x3: metoprolol tartrate 50mg PO Q8, lisinopril 5mg PO daily, spironolactone 25mg PO daily and aspirin 81mg PO breakfast. Please continue to monitor for BP (last 143/80), HR (last 76), potassium (last 4.2mmol/L), renal function, cough, S/S of bleeding and hemoglobin (last 8g/dL). 3. Hypothyroidism: levothyroxine 75mcg PO daily. Please continue to monitor for S/S of hypo/hyperthyroidism and TSH (last 01/29/21). 4. Hypomagnesemia: magnesium chloride 128mg PO daily. Please continue to monitor for magnesium levels (last 2.2mg/dL) and diarrhea. 5. GERD: pantoprazole 40mg PO daily. Please continue to monitor for S/S of GERD and diarrhea. 6. Insomnia: melatonin 3mg PO QHS PRN insomnia. Please continue to monitor for S/S of insomnia and PRN usage. Psychotropic Medications: None Unnecessary Medications: None Bowel Regimen: Miralax 17gm PO daily, senna/docusate 2T PO BID and bisacodyl 10mg PO daily PRN constipation. Please continue to monitor for constipation and PRN usage. Date of Note:: 03/06/21
[2021-03-06] MEDS: Tuberculin,Purif.prot.deriv. 50 TU/ML Vial 0.1 ML ID (12:23)
[2021-03-06 12:47] VITALS: O2SAT 91
[2021-03-06 15:02] VITALS: BP 119/66; PULSE 76
[2021-03-06 16:52] VITALS: BP 115/65; PULSE 72; RESP 20; TEMP 36.8
--- NOTE | 2021-03-06 17:08 | NURSING ---
Resident lying in bed. Reports feeling SOB. Hunched down in bed. Vest in place. Spo2 93% on room air. Assisted to chair to sit up straighter. Vest repositioned. Will continue to monitor.
[2021-03-06] MEDS: Acetaminophen 500 MG Tablet 1000 MG PO (17:11)
[2021-03-06] MEDS: MELATONIN 3 MG TABLET PO (21:09)
[2021-03-06 21:10] VITALS: BP 125/71; PULSE 70
[2021-03-06] MEDS: traMADol 50 MG Tablet PO (23:03)
--- NOTE | 2021-03-06 23:09 | NURSING ---
Addendum entered by Marlon Mar 03/06/21 23:55: Presents in bed with eyes closed. Resps even and unlabored. No distress observed or reported. Call light in reach. Original Note: Pt. reports sternal pain to surgical site with chest movement/breathing. Spo2 94% on RA, resps even and unlabored. No distress observed or reported. Repositioned to promote comfort. pt. states I really just want something to make me sleep. Pt. educated on PRN melatonin administered with HS medications to promote sleep. PRN Ultram administered per pt. request. Denies further requests. Call light in reach.
[2021-03-06 23:13] VITALS: PULSE 70; RESP 16; O2SAT 94
[2021-03-07] MEDS: Polyethylene Glycol 3350 17 GM PACKET PO (05:39)
[2021-03-07] MEDS: Lidocaine 5% Patch 1 PATCH TOPICAL (05:40)
[2021-03-07] MEDS: Levothyroxine 75 MCG Tablet PO (05:42)
[2021-03-07] MEDS: Magnesium Chloride 64 MG Delay Rel.Tablet 128 MG PO (05:42)
[2021-03-07] MEDS: Pantoprazole Sodium 40 MG Tablet PO (05:42)
[2021-03-07] MEDS: Senna/Docusate Sodium 1 Tablet 2 TABLET PO ×2 (05:42→17:33)
[2021-03-07 05:43] VITALS: BP 125/72; PULSE 78
[2021-03-07] MEDS: Lisinopril 5 MG Tablet PO (05:43)
[2021-03-07] MEDS: Metoprolol Tartrate 50 MG Tablet PO ×3 (05:43→19:55)
[2021-03-07] MEDS: Spironolactone 25 MG Tablet PO (05:45)
[2021-03-07] MEDS: Aspirin 81 MG TAB.CHEW PO (07:52)
[2021-03-07 12:46] VITALS: BP 103/56; PULSE 82; RESP 18; TEMP 36.6; O2SAT 92
[2021-03-07 14:17] VITALS: PULSE 82
--- NOTE | 2021-03-07 14:33 | CASEMGMT ---
Social Work Insurance issued LCD 03/09, DC 03/10. Spoke with pt and does not feel ready to DC home alone. His girlfriend lives in [place] and needs time to make arrangements to come assist. Pt does not feel stable medically either. Explained appeal rights - pt requesting peer to peer. Spoke with Dr. Hooks who agreed. Contacted [employer] and scheduled P2P. SW assisted Dr. Hooks with P2P, after much discussion, agreed with request for additional days - NRD 03/11, LCD 03/13, DC 03/14. Notified pt - pt appreciative. Instructed to contact GF to have in town by DC to assist. Pt agrees. SW will assist with DC referrals as recommended NIDHI WuW
--- NOTE | 2021-03-07 19:18 | PCA ---
patient refused HS care and did not want to change in a night gown. I am going to get a shower with therapy in the morning and i will just wait until then to get washed and changed
[2021-03-07 19:55] VITALS: BP 109/63; PULSE 78
[2021-03-07] MEDS: Acetaminophen 500 MG Tablet 1000 MG PO (21:30)
[2021-03-07] MEDS: MELATONIN 3 MG TABLET PO (21:31)
[2021-03-07 22:36] VITALS: PULSE 79; RESP 14; O2SAT 93
--- NOTE | 2021-03-08 04:53 | NURSING ---
Phone call placed to pharmacy and spoke warren Joyce, to follow-up on medication communication for Rosuvastatin (Crestor). he notes Crestor is not on formulary and Lipitor 40 mg is therapeutic interchange.
[2021-03-08 05:53] VITALS: BP 133/85; PULSE 68; RESP 16; TEMP 36.8; O2SAT 92
[2021-03-08 05:55] VITALS: BP 133/85; PULSE 68
[2021-03-08] MEDS: Metoprolol Tartrate 50 MG Tablet PO ×3 (05:55→20:25)
[2021-03-08] MEDS: Spironolactone 25 MG Tablet PO (05:56)
[2021-03-08] MEDS: Lisinopril 5 MG Tablet PO (05:56)
[2021-03-08] MEDS: Pantoprazole Sodium 40 MG Tablet PO (05:56)
[2021-03-08] MEDS: Levothyroxine 75 MCG Tablet PO (05:56)
[2021-03-08] MEDS: Magnesium Chloride 64 MG Delay Rel.Tablet 128 MG PO (05:56)
[2021-03-08 05:57] LABS: Hematocrit 27.1 % (40-54); Hemoglobin 8.5 g/dL (13.0-16.5)
[2021-03-08] MEDS: Senna/Docusate Sodium 1 Tablet 2 TABLET PO ×2 (05:57→17:43)
[2021-03-08] MEDS: Lidocaine 5% Patch 1 PATCH TOPICAL (05:57)
[2021-03-08] MEDS: Aspirin 81 MG TAB.CHEW PO (08:17)
[2021-03-08 14:06] VITALS: PULSE 73
[2021-03-08 16:00] VITALS: BP 100/73; PULSE 73; RESP 18; TEMP 36.2; O2SAT 93
[2021-03-08 20:25] VITALS: BP 120/76; PULSE 73
[2021-03-08] MEDS: Rosuvastatin 20 MG Tablet PO (20:25)
[2021-03-08] MEDS: MELATONIN 3 MG TABLET PO (20:28)
[2021-03-08 22:24] VITALS: PULSE 73; RESP 14
[2021-03-08] MEDS: traMADol 50 MG Tablet PO (23:52)
[2021-03-09] MEDS: Lidocaine 5% Patch 1 PATCH TOPICAL (05:22)
[2021-03-09 05:23] VITALS: BP 137/66; PULSE 71
[2021-03-09] MEDS: Metoprolol Tartrate 50 MG Tablet PO ×2 (05:23→21:23)
[2021-03-09] MEDS: Lisinopril 5 MG Tablet PO (05:24)
[2021-03-09] MEDS: Spironolactone 25 MG Tablet PO (05:24)
[2021-03-09] MEDS: Senna/Docusate Sodium 1 Tablet 2 TABLET PO ×2 (05:24→17:59)
[2021-03-09] MEDS: Pantoprazole Sodium 40 MG Tablet PO (05:24)
[2021-03-09] MEDS: Levothyroxine 75 MCG Tablet PO (05:24)
[2021-03-09] MEDS: Magnesium Chloride 64 MG Delay Rel.Tablet 128 MG PO (05:24)
[2021-03-09] MEDS: Aspirin 81 MG TAB.CHEW PO (08:09)
[2021-03-09 10:00] VITALS: PULSE 69; O2SAT 96
[2021-03-09 13:12] VITALS: BP 98/55; PULSE 70
--- NOTE | 2021-03-09 13:28 | NURSING ---
Bathroom call light was ringing and upon entering room to answer light, pt was observed standing in front of his recliner preparing to sit. When pt saw this nurse he stated I was just making my way back from the bathroom. This nurse educated pt on importance of waiting for assistance to ambulate, pt verbalized understanding.
[2021-03-09 13:51] VITALS: BP 98/55; PULSE 70; RESP 18; TEMP 36.1; O2SAT 91
[2021-03-09 21:23] VITALS: BP 129/73; PULSE 77
[2021-03-09] MEDS: Rosuvastatin 20 MG Tablet PO (21:24)
[2021-03-09] MEDS: MELATONIN 3 MG TABLET PO (23:10)
--- NOTE | 2021-03-09 23:10 | NURSING ---
Pt given Melatonin per request, states I thought I'd have no problem going to sleep tonight, but I guess not. Repositioned in bed for comfort and another pillow given, denies further needs. No distress noted, will continue to monitor.
[2021-03-10 06:01] VITALS: BP 135/78; PULSE 68; RESP 126; TEMP 36.3; O2SAT 93
[2021-03-10 06:03] VITALS: BP 135/78; PULSE 68
[2021-03-10] MEDS: Metoprolol Tartrate 50 MG Tablet PO ×3 (06:03→20:34)
[2021-03-10] MEDS: Levothyroxine 75 MCG Tablet PO (06:03)
[2021-03-10] MEDS: Lidocaine 5% Patch 1 PATCH TOPICAL (06:03)
[2021-03-10] MEDS: Magnesium Chloride 64 MG Delay Rel.Tablet 128 MG PO (06:03)
[2021-03-10] MEDS: Senna/Docusate Sodium 1 Tablet 2 TABLET PO ×2 (06:04→17:34)
[2021-03-10] MEDS: Lisinopril 5 MG Tablet PO (06:04)
[2021-03-10] MEDS: Pantoprazole Sodium 40 MG Tablet PO (06:04)
[2021-03-10] MEDS: Spironolactone 25 MG Tablet PO (06:04)
--- NOTE | 2021-03-10 06:09 | NURSING ---
Pt requests to take Miralax with breakfast.
[2021-03-10] MEDS: Aspirin 81 MG TAB.CHEW PO (08:27)
[2021-03-10 13:51] VITALS: BP 106/67; PULSE 70
[2021-03-10 20:15] VITALS: O2SAT 94
[2021-03-10 20:34] VITALS: BP 118/70; PULSE 67
[2021-03-10] MEDS: Rosuvastatin 20 MG Tablet PO (20:34)
[2021-03-10] MEDS: MELATONIN 3 MG TABLET PO (20:34)
[2021-03-11] MEDS: Senna/Docusate Sodium 1 Tablet 2 TABLET PO ×2 (06:04→17:20)
[2021-03-11] MEDS: Lidocaine 5% Patch 1 PATCH TOPICAL (06:04)
[2021-03-11 06:05] VITALS: BP 138/79; PULSE 68
[2021-03-11] MEDS: Lisinopril 5 MG Tablet PO (06:05)
[2021-03-11] MEDS: Magnesium Chloride 64 MG Delay Rel.Tablet 128 MG PO (06:05)
[2021-03-11] MEDS: Pantoprazole Sodium 40 MG Tablet PO (06:05)
[2021-03-11] MEDS: Spironolactone 25 MG Tablet PO (06:05)
[2021-03-11] MEDS: Metoprolol Tartrate 50 MG Tablet PO ×3 (06:05→21:08)
[2021-03-11] MEDS: Levothyroxine 75 MCG Tablet PO (06:05)
[2021-03-11] MEDS: Aspirin 81 MG TAB.CHEW PO (07:44)
[2021-03-11 13:59] VITALS: PULSE 67
[2021-03-11 16:00] VITALS: BP 110/62; PULSE 67; RESP 18; TEMP 36.4; O2SAT 95
[2021-03-11 19:48] VITALS: PULSE 78; O2SAT 94
[2021-03-11 21:08] VITALS: BP 117/67; PULSE 67
[2021-03-11] MEDS: Rosuvastatin 20 MG Tablet PO (21:08)
[2021-03-11] MEDS: MELATONIN 3 MG TABLET PO (21:08)
--- NOTE | 2021-03-11 22:40 | NURSING ---
Pt. voices my appointment was cancelled for tomorrow and they re-scheduled it for Thursday.
[2021-03-12] MEDS: Lidocaine 5% Patch 1 PATCH TOPICAL (05:29)
[2021-03-12 05:30] VITALS: BP 137/74; PULSE 64
[2021-03-12] MEDS: Metoprolol Tartrate 50 MG Tablet PO ×3 (05:30→21:00)
[2021-03-12] MEDS: Senna/Docusate Sodium 1 Tablet 2 TABLET PO (05:30)
[2021-03-12] MEDS: Spironolactone 25 MG Tablet PO (05:30)
[2021-03-12] MEDS: Lisinopril 5 MG Tablet PO (05:30)
[2021-03-12] MEDS: Magnesium Chloride 64 MG Delay Rel.Tablet 128 MG PO (05:31)
[2021-03-12] MEDS: Polyethylene Glycol 3350 17 GM PACKET PO (05:31)
[2021-03-12] MEDS: Levothyroxine 75 MCG Tablet PO (05:31)
[2021-03-12] MEDS: Pantoprazole Sodium 40 MG Tablet PO (05:31)
--- NOTE | 2021-03-12 07:57 | DS.PCM_ITS ---
Providers Date of Admission: 03/05/21 Primary Care Physician: Dr. Jose Hooks MD Reason For Visit: CABG X 3 Diagnosis Discharge Diagnosis (1) Debility: Status: Acute Code(s): R53.81 - Other malaise (2) CAD (coronary artery disease): Status: Acute Code(s): I25.10 - Atherosclerotic heart disease of [place] coronary artery without angina pectoris (3) History of coronary artery bypass graft x 3: Status: Acute Code(s): Z95.1 - Presence of aortocoronary bypass graft (4) Vitamin D deficiency: Status: Acute Code(s): E55.9 - Vitamin D deficiency, unspecified (5) Gastroesophageal reflux disease: Status: Acute Code(s): K21.9 - Gastro-esophageal reflux disease without esophagitis (6) Hypothyroidism: Status: Acute Code(s): E03.9 - Hypothyroidism, unspecified (7) Postoperative anemia: Status: Acute Code(s): D64.9 - Anemia, unspecified Medications at Discharge Home Medications aspirin 81 mg PO DAILY 02/22/21 levothyroxine 75 mcg PO DAILY@0600 30 Days #30 tab 03/12/21 lidocaine 1 patch TOPICAL DAILY 30 Days #30 ea 03/12/21 lisinopril 5 mg PO DAILY 30 Days #30 tab 03/12/21 magnesium chloride [Mag 64] 128 mg PO DAILY 30 Days #60 tab 03/12/21 melatonin 3 mg PO QHS PRN #0 tab 03/12/21 metoprolol tartrate 50 mg PO Q8 30 Days #90 tab 03/12/21 pantoprazole 40 mg PO DAILY 30 Days #30 tab 03/12/21 rosuvastatin [Crestor] 20 mg PO QHS 30 Days #30 tab 03/12/21 spironolactone 25 mg PO DAILY 30 Days #30 tab 03/12/21 Hospital Course Operations - (CABG x 3.) Procedures None Summary of Care Provided Minutes Spent on Discharge: 35 Hospital Course: 80 year old male with below past medical history hospitalized for multivessel coronary artery disease, underwent CABG x 3 02/26/[address] Werner, postoperative course complicated by anemia, admitted to TCU with debility, here for rehabilitation, strengthening, prior to discharge home alone. Discharge home with significant other, daughter support 03/14/2021, [facility] PT/OT. Physical Exam Const alert and oriented x3 General Appearance: cooperative HEENT normocephalic Eyes PERRL and EOMs intact bilaterally Neck supple, no JVD and no carotid bruits Resp normal respiratory effort, normal air movement and clear to auscultation bilaterally Cardio regular rate and regular rhythm GI normal to inspection, nondistended, normoactive bowel sounds, non-tender and non-distended Extremity normal capillary refill General Extremity: Negative for edema Skin no rashes or lesions noted General Skin Exam: no breakdown Psych affect normal Appearance: appropriate Weight / BMI Weight Weight: 73.6 kg Body Mass Index (BMI) 23.7 ABG / Lab / Microbiology Data Result Diagrams: 03/08/21 05:23 03/06/21 05:24 Microbiology: Microbiology 03/06/21 00:26 Nasal Secretion SARS-CoV-2 Antigen (Rapid) - Final D/C Instructions Discharge Diet: No restrictions Discharge Activity: Return to Normal Activity, May Shower and Use Walker May resume sexual activity in: 6-8 weeks Weight Bearing Status: Weight bearing as tolerated Call your doctor if you observe: Fever of 101 or Higher, Inability to urinate, Inability to have a bowel movement, Shortness of breath, Dizziness, Fainting spells, Swelling in the ankles, Chest pain, Increased palpitations (irregular heartbeat) and Uncontrolled pain Additional Instructions: Discharge home with significant other, daughter support 03/14/2021, [facility] PT/OT. Please Follow Up With: cardiology When: As scheduled. Meaningful Use Info Meaningful Use Diagnoses (Choose all that apply): None applicable Discharge Plan Admission Admit Date/Time: 03/05/21 18:25 Primary Reason for Your Visit: Debility. Attending Provider: Jose Hooks Chi Primary Care Provider: Jose Hooks Chi Instructions Additional Instructions / Restrictions: Discharge home with significant other, daughter support 03/14/2021, [facility] PT/OT. Discharge Orders/Prescriptions Prescriptions: New melatonin 3 mg Tablet 3 mg PO QHS PRN (Reason: SLEEP) Qty: 0 RF: 0 spironolactone 25 mg Tablet 25 mg PO DAILY 30 Days Qty: 30 RF: 0 levothyroxine 75 mcg Tablet 75 mcg PO DAILY@0600 30 Days Qty: 30 RF: 0 pantoprazole 40 mg Tablet,Delayed Release (Dr/Ec) 40 mg PO DAILY 30 Days Qty: 30 RF: 0 lidocaine 5 % Adhesive Patch,Medicated 1 patch topical DAILY 30 Days Qty: 30 RF: 0 metoprolol tartrate 50 mg Tablet 50 mg PO Q8 30 Days Qty: 90 RF: 0 lisinopril 5 mg Tablet 5 mg PO DAILY 30 Days Qty: 30 RF: 0 rosuvastatin [Crestor] 20 mg Tablet 20 mg PO QHS 30 Days Qty: 30 RF: 0 magnesium chloride [Mag 64] 64 mg Tablet,Delayed Release (Dr/Ec) 128 mg PO DAILY 30 Days Qty: 60 RF: 0 Continued aspirin 81 mg Tablet,Chewable 81 mg PO DAILY RF: 0 Discontinued cholecalciferol (vitamin D3) 5,000 unit tablet 5,000 unit PO DAILY RF: 0 levothyroxine 88 mcg tablet 75 mcg PO DAILY RF: 0 diphenhydramine-acetaminophen [Tylenol PM Extra Strength] 25-500 mg tablet 1 tab PO QHS PRN (Reason: Sleep) RF: 0 prednisone 20 mg tablet 60 mg PO DAILY RF: 0 metoprolol succinate 25 mg tablet extended release 24 hr 25 mg PO BID RF: 0 famotidine 40 mg tablet 40 mg PO DAILY RF: 0 Referrals / Follow Up: Jose Hooks Chi, MD [Primary Care Provider] - Disposition Disposition (needs filled in before D/C Order can be placed): Home Health Servi ce
[2021-03-12] MEDS: Aspirin 81 MG TAB.CHEW PO (08:07)
--- NOTE | 2021-03-12 09:15 | CASEMGMT ---
Social Work PHQ-9 (score 8) and BIMS (score 15) completed this date. SW spoke w/pt about the symptoms showing on the PHQ-9 that can indicate signs of depression. Pt attributed symptoms to his surgery and recovery. On all questions where pt scored a 1-3, pt indicated that he is feeling better, and does feel the indications of depression are more situational. No referrals needed at this time. MOON Key
[2021-03-12 09:35] VITALS: PULSE 64; RESP 18; O2SAT 94
--- NOTE | 2021-03-12 09:44 | NURSING ---
PT RESTING IN RECLINER CHAIR, DENIES NEEDS OR C/O. DID STATE HE WAS SICK TO STOMACH AT 0530 AFTER TAKING MEDS ON EMPTY STOMACH. FEELING BETTER NOW. THORACIC VEST PLACED ON PT, TEDS PLACED ON BOTH LEGS, NO EDEMA NOTED. INCISIONS ALL OPEN TO AIR WITH SCABBING AND PEELING GLUE IN PLACES.
[2021-03-12 13:39] VITALS: BP 103/54; PULSE 64
--- NOTE | 2021-03-12 13:47 | CASEMGMT ---
Social Work NOMNC received, LEILANI reviewed w/pt and pt signed. Pt continues to want to discharge on 03/14/21. LEILANI faxed NOMNC to [place] at [facility], copy given to pt and copy placed on chart. [place]
[2021-03-12 14:08] VITALS: BP 103/54; PULSE 64; RESP 16; TEMP 36.9; O2SAT 95
[2021-03-12] MEDS: Rosuvastatin 20 MG Tablet PO (20:59)
[2021-03-12 21:00] VITALS: BP 137/79; PULSE 63
[2021-03-12] MEDS: MELATONIN 3 MG TABLET PO (21:00)
[2021-03-13 06:09] LABS: Absolute Lymphocyte Count 1.21 X10^3/uL (0.83-4.51); Absolute Neutrophil Count 5.1 X10^3/uL (2.0-7.7); Basophil# 0.07 X10^3/uL; Basophil% 0.9 % (0-1); Eosinophil# 0.37 X10^3/uL; Eosinophils% 4.8 % (0-5); Hematocrit 29.2 % (40-54); Hemoglobin 9.4 g/dL (13.0-16.5); Lymphocyte # 1.21 X10^3/ul (0.83-4.51); Lymphocyte % 15.8 % (19-41); Mean Corp Hgb Conc 32.2 g/dL (32-36); Mean Corpuscular Hgb 31.8 pg (27.0-32.0); Mean Corpuscular Volume 98.6 fL (80-94); Mean Platelet Vol. 9.1 fl (6.2-12.0); Monocyte% 11.7 % (0-10); NRBC Flagged by Analyzer 0 % (0-5); Neutrophil # 5.07 X10^3/uL (2.7-7.7); Platelet Count 531 K/mm3 (150-450); RBC Distribution Width CV 14.3 % (11.6-14.6); RBC Distribution Width SD 50.7 fl (35.1-43.9); Red Blood Count 2.96 M/mm3 (4.6-6.2); White Blood Count 7.7 K/mm3 (4.4-11.0)
[2021-03-13 06:30] LABS: Anion Gap 6 (5-15); BUN 21 mg/dL (7-18); BUN/Creat Ratio 20.8 RATIO (10-20); Calcium,Total 8.5 mg/dL (8.5-10.1); Chloride 111 mmol/L (98-107); Creatinine, Serum 1.01 mg/dL (0.70-1.30); EST Glomerular Filtration Rate 76 mL/min (>60); Est Glom Filt Rate - Afr Amer 92 mL/min (>60); Estimated Creatinine Clearance 62.34 ml/min; Glucose 83 mg/dL (74-106); Potassium 4.1 mmol/L (3.5-5.1); Sodium Level 140 mmol/L (136-145)
[2021-03-13] MEDS: Lidocaine 5% Patch 1 PATCH TOPICAL (06:48)
[2021-03-13 06:49] VITALS: BP 109/64; PULSE 62
[2021-03-13] MEDS: Pantoprazole Sodium 40 MG Tablet PO (06:49)
[2021-03-13] MEDS: Levothyroxine 75 MCG Tablet PO (06:49)
[2021-03-13] MEDS: Lisinopril 5 MG Tablet PO (06:49)
[2021-03-13] MEDS: Spironolactone 25 MG Tablet PO (06:49)
[2021-03-13] MEDS: Metoprolol Tartrate 50 MG Tablet PO ×3 (06:49→20:44)
[2021-03-13] MEDS: Magnesium Chloride 64 MG Delay Rel.Tablet 128 MG PO (06:49)
[2021-03-13] MEDS: Aspirin 81 MG TAB.CHEW PO (08:13)
[2021-03-13 11:21] VITALS: PULSE 59; RESP 18; O2SAT 95
[2021-03-13 13:26] VITALS: BP 118/60; PULSE 62
--- NOTE | 2021-03-13 13:48 | CASEMGMT ---
Social Work Plan of Care meeting held today with pt and his daughter Luna present. Pt has progressed with therapy and discharge is set for tomorrow 03/14/21. Pt is agreeable to recommedations for home health PT/OT and list of providers including quality and resource use data was provided. PT preferred provider is [facility]. Pt does not have a wheeled walker and would like to obtain one [place] [facility] Pt dgt will transport pt home tomorrow after 4pm. Pt girlfriend will be available to assist as needed upon return home. Referral to [facility] and they are able to accept pt with a start of care 03/15/21. Referral [place] [facility] and they will deliver WW prior to pt discharge tomorrow. D/C date : 03/14/21 D/C disposition: Home with family support, [facility] PT/OT TIFFANIE Negro
[2021-03-13 16:00] VITALS: BP 118/60; PULSE 59; RESP 18; TEMP 36.8; O2SAT 95
[2021-03-13 20:44] VITALS: BP 112/68; PULSE 66
[2021-03-13] MEDS: Rosuvastatin 20 MG Tablet PO (20:44)
[2021-03-14] MEDS: MELATONIN 3 MG TABLET PO (00:32)
[2021-03-14 05:53] VITALS: BP 132/73; PULSE 61
[2021-03-14] MEDS: Lidocaine 5% Patch 1 PATCH TOPICAL (05:55)
[2021-03-14] MEDS: Spironolactone 25 MG Tablet PO (05:55)
[2021-03-14 05:57] VITALS: PULSE 61
[2021-03-14] MEDS: Metoprolol Tartrate 50 MG Tablet PO ×2 (05:57→13:55)
[2021-03-14] MEDS: Magnesium Chloride 64 MG Delay Rel.Tablet 128 MG PO (05:57)
[2021-03-14] MEDS: Senna/Docusate Sodium 1 Tablet 2 TABLET PO (05:58)
[2021-03-14] MEDS: Levothyroxine 75 MCG Tablet PO (05:58)
[2021-03-14] MEDS: Pantoprazole Sodium 40 MG Tablet PO (05:58)
[2021-03-14] MEDS: Lisinopril 5 MG Tablet PO (05:59)
[2021-03-14] MEDS: Aspirin 81 MG TAB.CHEW PO (08:38)
[2021-03-14 13:55] VITALS: BP 115/68; PULSE 63
[2021-03-14 14:43] VITALS: PULSE 61; RESP 16; O2SAT 92
[2021-03-14 14:53] VITALS: BP 111/59; PULSE 61; RESP 16; TEMP 36.5; O2SAT 92
[2021-03-14 16:02] VITALS: BP 111/59; PULSE 61; RESP 16; TEMP 36.5; O2SAT 92
--- NOTE | 2021-03-18 10:12 | MDS.RN ---
Information for the mds was obtained from review of the clinical record, interview of resident, staff, and direct observation of resident's care.
== END 2021-03-14 16:05 | disposition home health service (06) | DRG 950 ==
PROVIDERS: Admitting Provider Family Medicine Geriatric Medicine; PCP Family Medicine Geriatric Medicine; Visit Provider Family Medicine Geriatric Medicine
DX: Z48.812 Encounter for surgical aftercare following surgery on the circulatory system (principal); I25.10 Atherosclerotic heart disease of native coronary artery without angina pectoris; Z95.1 Presence of aortocoronary bypass graft; Z23 Encounter for immunization; M35.3 Polymyalgia rheumatica; K21.9 Gastro-esophageal reflux disease without esophagitis; N40.0 Benign prostatic hyperplasia without lower urinary tract symptoms; I10 Essential (primary) hypertension; M79.7 Fibromyalgia; E78.5 Hyperlipidemia, unspecified; E03.9 Hypothyroidism, unspecified; Z79.899 Other long term (current) drug therapy; Z79.82 Long term (current) use of aspirin; Z79.52 Long term (current) use of systemic steroids; Z79.890 Hormone replacement therapy; E55.9 Vitamin D deficiency, unspecified; D64.9 Anemia, unspecified
CPT/HCPCS: 36415; 80048; 85014; 85018; 85025; 87426; 97110; 97116; 97162; 97166; 97530; 97535; 97802; G0008; 90686

== ENCOUNTER → 2021-04-05 12:03 | Outpatient (CLI) | payer MEDICARE, SELFPAY ==
[2021-04-05 13:16] LABS: Absolute Lymphocyte Count 1.34 X10^3/uL (0.83-4.51); Absolute Neutrophil Count 4.5 X10^3/uL (2.0-7.7); Basophil# 0.05 X10^3/uL; Basophil% 0.7 % (0-1); Eosinophil# 0.76 X10^3/uL; Eosinophils% 10.2 % (0-5); Hematocrit 38.5 % (40-54); Hemoglobin 12.3 g/dL (13.0-16.5); Lymphocyte # 1.34 X10^3/ul (0.83-4.51); Mean Corp Hgb Conc 31.9 g/dL (32-36); Mean Corpuscular Hgb 30.4 pg (27.0-32.0); Mean Corpuscular Volume 95.3 fL (80-94); Mean Platelet Vol. 9.6 fl (6.2-12.0); Monocyte# 0.78 X10^3/uL; Monocyte% 10.5 % (0-10); NRBC Flagged by Analyzer 0 % (0-5); Neutrophil # 4.49 X10^3/uL (2.7-7.7); Neutrophil % 60.2 % (47-70); Platelet Count 351 K/mm3 (150-450); RBC Distribution Width CV 12.8 % (11.6-14.6); Red Blood Count 4.04 M/mm3 (4.6-6.2); White Blood Count 7.5 K/mm3 (4.4-11.0)
[2021-04-05 13:41] LABS: ALB/GLOB Ratio 0.8 RATIO (0.9-2.4); AST(SGOT) 26 U/L (15-37); Alanine Aminotransfer ALT/SGPT 45 U/L (16-61); Alkaline Phosphatase 85 U/L (45-117); Anion Gap 5 (5-15); BUN 28 mg/dL (7-18); BUN/Creat Ratio 20.6 RATIO (10-20); Calcium,Total 8.9 mg/dL (8.5-10.1); Chloride 109 mmol/L (98-107); Creatinine, Serum 1.36 mg/dL (0.70-1.30); EST Glomerular Filtration Rate 54 mL/min (>60); Est Glom Filt Rate - Afr Amer 65 mL/min (>60); Globulin 3.8 g/dL (2.2-4.2); Glucose 80 mg/dL (74-106); Potassium 4.3 mmol/L (3.5-5.1); Protein, Total 6.8 g/dL (6.4-8.2); Sodium Level 142 mmol/L (136-145)
== END ==
PROVIDERS: PCP Family Medicine Geriatric Medicine; Referring Provider Family Medicine Geriatric Medicine; Visit Provider Family Medicine Geriatric Medicine
DX: N39.0 Urinary tract infection, site not specified (principal); R33.9 Retention of urine, unspecified
CPT/HCPCS: 36415; 80053; 85025; 87086; 87088

== ENCOUNTER 2021-04-22 15:00 | Outpatient (RCR) | payer MEDICARE, SELFPAY ==
--- NOTE | 2021-04-16 09:43 | HP.PTEVAL ---
Patient's Visit Information KULWANT ANDRADE is a 80 year old M referred to Physical Therapy by Dr. Jose Hooks MD with a diagnosis of WEAKNESS OF LEGS. 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 GAIT AND BALANCE TRAINING. TRUNK AND CELESTE LE STRENGTHENING, ENDURANCE TRAINING AND STRETCHING. - Subjective Work/Leisure: RETIRED. Present symptoms: CELESTE LE WEAKNESS LEFT > RIGHT. SORE AND STIFF IN GROIN AREA AND IN LEFT MEDIAL PROXIMAL CALF AREA. Present since: ABOUT 3 WEEKS. Pain Scale: WORST 3/10, LEAST 2/10. Currently: 07/11. Commenced as a result of: TAKING VEINS OUT OF LEFT LEG JAN 2021 FOR CABG SURGERY. Symptoms at onset: LUMP AND PAIN IN LEFT MEDIAL CALF. Worse: NOTHING - ITS JUST THERE. Better: NOTHING. Disturbed sleep: VERY LITTLE NOW. Treatment this episode: PREDNISONE AND ANTIBIOTICS - PATIENT REPORTS THE MEDICINE HELPED A LOT. Coughing/sneezing/straining: NEGATIVE. Gait: I JUST DON'T HAVE THE STRENGTH THAT I HAD. NO AD'S. Difficulty initiating urination: NO. NO LOSS OF BOWEL OR BLADDER CONTROL THAT IS NEW. Accidents: NO. Unexplained weight loss: NONE RECENT. Imaging: NOT SINCE SURGERY FAR PATIENT CAN RE-CALL. PMH/Recent major surgery: HTN, LEGIONNAIRES DZ AUGUST 2020 - LOST 22 LBS- IN HOSPITAL 10-12 DAYS. CABG X 3 END OF JAN 2021. OTHER: PATIENT REPORTS ABOUT 30% STRENGTH RECOVERY AT THIS POINT COMPARED TO BEFORE CABG X 3 END OF JAN 2021. - Objective Sitting/Standing Posture: POOR. DECREASED LORDOSIS AND INCREASED KYPHOSIS. Active Correction of posture: PATIENT ONLY ABLE TO PARTIALLY CORRECT AND HAS NE ON PAIN. Other Observations: INDEP GAIT INTO PT WITHOUT ANY ASSISTIVE DEVICES. DECREASED CADANCE. MILD LLE LIMP. SLS ON RIGHT LE X APPROX 6 SEC WITHOUT UE ASSIST AND 2-3 SEC LLE. Motor deficit: CELESTE LE 5/5 WITH MMT'ING EXCEPT RIGHT HIP 4/5, LEFT HIP 3+ TO 4-/5 AND LEFT HS/QUAD 4/5. Sensory deficit: CELESTE LE LIGHT TOUCH SENSATION GROSSLY INTACT WITH TENDERNESS IN L PROXIMAL MEDIAL CALF. ROM deficit: CELESTE LE HIP FLEXOR, HS AND GASTROC SOLEUS COMPLEX TIGHTNESS. Reflexes: NT. Dural Signs: NEGATIVE CELESTE LE'S. Lumbar mvmt loss: flex - MIN. ext - OYLANDA. R SG - YOLANDA. L SG - YOLANDA. PATIENT C/O BACK PULLING WITH LUMBAR ROM TESTING ALL PLANES. Core strength: POOR. Palpation: TENDERNESS WITH PALPATION OF THE LEFT PROXIMAL MEDIAL CALF REGION AND THERE IS BULGING IN THIS AREA THAT PATIENT REPORTS HAS GONE DOWN SINCE TAKING THE ANTIBIOTIC. - Balance/Special Test Scores Lower Extremity Functional Score: 42 - Goals Goal 1:: DECREASE C/O LLE PAIN Goal Time Frame: 4-6 Weeks Goal 2:: INCREASE FUNCTIONAL STRENGTH OF CELESTE LE'S TO IMPROVE STANDING AND WALKING FUNCTION. Goal Time Frame: 4-6 Weeks Goal 3:: IMPROVE CELESTE LE FLEXABILITY TO IMPROVE GAIT AND BALANCE Goal Time Frame: 4-6 Weeks Goal 4:: PATIENT WILL BE INDEP WITH A HEP FOR CONTINUED IMPROVEMENT ONCE FORMAL PHYSICAL THERAPY CONCLUDES. Goal Time Frame: 4-6 Weeks - Anticipated Interventions Patient/Client Instruction: Educate patient on: Condition, Plan of Care, Risk Factors For the Purpose of:: To improve self management Therapeutic Exercise to Include: Strength training, Body mechanics, Postural training, Flexibilty training, Gait and locomotor training, Neuromotor development, In an aquatic setting, Dynamic Lumbar Stabilization For the Purpose of:: To improve muscle performance and motor function, To increase tolerance to activity/condition/position, To improve ability of physical actions for home/community/work/leisure, To improve gait and locomotor functions Thank you for the opportunity to evaluate your patient. For Medicare and Medicare HMO plans, please review the plan of care and approve it. It will need to be FAXED BACK to us at [phone] for Medicare purposes. For Medicare only, by signing this I certify the plan of care. Please let me know if there are questions or concerns regarding this plan of care. Physician Signature: Date:
--- NOTE | 2021-05-16 14:10 | HP.PT.NRP ---
KULWANT ANDRADE was seen in my office for initial evaluation on 04/16/21. The following Plan of Care was established for this patient: Initial Frequency: 2-3x /Week Initial Duration: 4-6 Weeks Patient/Client Instruction: Educate patient on: Condition, Plan of Care, Risk Factors For the Purpose of:: To improve self management Therapeutic Exercise to Include: Strength training, Body mechanics, Postural training, Flexibilty training, Gait and locomotor training, Neuromotor development, In an aquatic setting, Dynamic Lumbar Stabilization For the Purpose of:: To improve muscle performance and motor function, To increase tolerance to activity/condition/position, To improve ability of physical actions for home/community/work/leisure, To improve gait and locomotor functions This patient was last seen in our office . Pertinent comments regarding their Physical therapy will appear below: I RECEIVED A NOTE DATED 04/24/21 STATING PATIENT HAS A BLLOD CLOT IN LEG. CANCELLED ALL BEBO'TS. PATIENT HAS NOT CALLED TO RE-SCHEDULE SO I AM GOING TO GO AHEAD AND DISCHARGE HIS CHART AT THIS TIME. WE WOULD BE HAPPY TO RESUME PT NEEDED. At this point I will be discontinuing this patient from physical therapy. I would be happy to see this patient again in the future if found appropriate by the physician. Thank you! Vandana Chavez, PT, Cert MDT Balance/Gait/Functional tests - Balance/Special Test Scores Lower Extremity Functional Score: 42
== END 2021-04-22 19:00 | disposition home or self-care (01) ==
LOC: PT 15:00
PROVIDERS: PCP Family Medicine Geriatric Medicine; Referring Provider Family Medicine Geriatric Medicine; Visit Provider Family Medicine Geriatric Medicine
DX: R53.1 Weakness (principal)
CPT/HCPCS: 97110; 97162; 97530

== ENCOUNTER → 2021-04-24 11:14 | Outpatient (CLI) | payer MEDICARE, SELFPAY ==
--- NOTE | 2021-04-24 11:17 | VDLE_ITS ---
Reason For Study: Edema RIGHT LEFT CFV is compressible, spontaneous, phasic, CFV is compressible, spontaneous, phasic, competent and demonstrates normal competent, and demonstrates normal augmentation. augmentation. Procedure FV is compressible, spontaneous, phasic, This is a venous duplex using B-mode, color competent and demonstrates normal flow and spectral Doppler. augmentation. Exam performed in department. POP V is compressible, spontaneous, phasic, A preliminary report was called and/or faxed competent and demonstrates normal to [place]. augmentation. T/P Trunk is compressible. PTV is compressible. LT PerV is compressible. Left GSV, small segment harvested at knee area. Acute superficial vein thrombosis is noted from junction to distal thigh and prox to mid calf. SVT is 0.41 cm from CFV junction. VL/Venous Duplex US, Unilateral Interpretation Summary There is no evidence of left lower extremity deep vein thrombosis. Acute superf icial thrombophlebitis left great saphenous vein from the junction to the distal thig h at the site of segmental great saphenous vein harvesting. Additional superficial thrombophlebi tis from the proximal to distal calf. It is of note that these superficial venous thrombosis at the s aphenofemoral junction is 0.41 cm from the common femoral vein junction Left popliteal space hypoechoic structure of 1.06 x 2.64 x 3.95 cm. No vascular flow identified. Consistent with a Freeman's cyst. Clinical correlation would be appropriate. Normal flow patterns right common femoral vein Ordering Physician: Jose Hooks Referring Physician: Jose Hooks Chi Performed By: Oneida Mcallister RVT
== END ==
PROVIDERS: PCP Family Medicine Geriatric Medicine; Referring Provider Family Medicine Geriatric Medicine; Visit Provider Family Medicine Geriatric Medicine
DX: R60.0 Localized edema (principal)
CPT/HCPCS: 93971

== ENCOUNTER → 2021-05-01 16:54 | Outpatient (CLI) | payer MEDICARE, SELFPAY ==
[2021-05-01 17:28] LABS: Absolute Lymphocyte Count 1.26 X10^3/uL (0.83-4.51); Absolute Neutrophil Count 5.5 X10^3/uL (2.0-7.7); Basophil# 0.03 X10^3/uL; Basophil% 0.4 % (0-1); Eosinophil# 0.58 X10^3/uL; Eosinophils% 7.1 % (0-5); Hematocrit 31.1 % (40-54); Hemoglobin 9.9 g/dL (13.0-16.5); Lymphocyte # 1.26 X10^3/ul (0.83-4.51); Lymphocyte % 15.4 % (19-41); Mean Corp Hgb Conc 31.8 g/dL (32-36); Mean Corpuscular Hgb 30.2 pg (27.0-32.0); Mean Corpuscular Volume 94.8 fL (80-94); Mean Platelet Vol. 9.8 fl (6.2-12.0); Monocyte% 9.8 % (0-10); NRBC Flagged by Analyzer 0 % (0-5); Neutrophil # 5.47 X10^3/uL (2.7-7.7); Neutrophil % 66.6 % (47-70); Platelet Count 285 K/mm3 (150-450); RBC Distribution Width CV 13.5 % (11.6-14.6); RBC Distribution Width SD 46.6 fl (35.1-43.9); Red Blood Count 3.28 M/mm3 (4.6-6.2); White Blood Count 8.2 K/mm3 (4.4-11.0)
[2021-05-01 17:48] LABS: Anion Gap 6 (5-15); BUN 55 mg/dL (7-18); BUN/Creat Ratio 45.8 RATIO (10-20); Calcium,Total 9.3 mg/dL (8.5-10.1); Chloride 109 mmol/L (98-107); EST Glomerular Filtration Rate 62 mL/min (>60); Est Glom Filt Rate - Afr Amer 75 mL/min (>60); Ferritin 54 ng/mL (26-388); Glucose 98 mg/dL (74-106); Iron 99 ug/dL (65-175); Iron Binding Capacity,Total 326 ug/dL (250-450); Potassium 4.6 mmol/L (3.5-5.1); Sodium Level 143 mmol/L (136-145)
== END ==
PROVIDERS: PCP Family Medicine Geriatric Medicine; Visit Provider Family Medicine Geriatric Medicine
DX: D64.9 Anemia, unspecified (principal)
CPT/HCPCS: 36415; 80048; 82728; 83540; 83550; 85025; 86850; 86900; 86901

== ENCOUNTER → 2021-05-03 07:44 | Outpatient (CLI) | payer MEDICARE, SELFPAY ==
[2021-05-02 16:19] LABS: Hematocrit 28.2 % (40-54); Hemoglobin 9.2 g/dL (13.0-16.5)
[2021-05-03] VITALS (7 sets, daily range): BP systolic 88–123; BP diastolic 52–95; PULSE 57–83; RESP 16; TEMP 35.8–36.6; O2SAT 97–100; BMI 21.9
[2021-05-03] MEDS: 0.9% NaCl Peripheral Flush Adult/Peds IV (10:23)
[2021-05-03] MEDS: Furosemide 20 MG/2 ML VIAL IV (12:25)
== END ==
PROVIDERS: PCP Family Medicine Geriatric Medicine; Referring Provider Family Medicine Geriatric Medicine; Visit Provider Family Medicine Geriatric Medicine
DX: D64.9 Anemia, unspecified (principal)
CPT/HCPCS: 36415; 36430; 85014; 85018; 86850; 86900; 86901; 86920; 86922; J7040; P9016; A4216; J1940

== ENCOUNTER 2021-05-16 12:05 | Emergency (ER) | payer MEDICARE, SELFPAY ==
[2021-05-16 12:05] VITALS: BP 137/91; PULSE 62; RESP 14; TEMP 36.5; O2SAT 98; BMI 23.3
--- NOTE | 2021-05-16 12:40 | VDLE_ITS ---
Version 2 Reason For Study: swelling Procedure LEFT This is a venous duplex using B-mode, color CFV is compressible, spontaneous, phasic, flow and spectral Doppler. competent, and demonstrates normal Exam performed portable in ED. augmentation. The exam was abbreviated due to the COVID 19 FV is compressible, spontaneous, phasic, protocol. competent and demonstrates normal The exam was diagnostic. augmentation. A preliminary report was called and/or faxed POP V is compressible, spontaneous, phasic, to Dr. Eid. competent and demonstrates normal augmentation. T/P Trunk is compressible. PTV is compressible. LT PerV is compressible. GSV is partially harvested for CABG. Remainder of GSV is dilated and noncompressible. SVT is .9 cm from SFJ. Hypoechoic area behind the knee measuring 1.0 x 2.76 cm in short. Area is nonvascular. VL/Venous Duplex US, Unilateral Interpretation Summary There is no evidence of left lower extremity deep vein thrombosis. History sugg est great saphenous vein partially harvested for coronary bypass grafting. Remainder present is dil ated noncompressible and consistent with superficial thrombophlebitis extending to 0.9 cm from the s aphenofemoral junction Abbreviated COVID-19 protocol Left popliteal space 1 x 2.76 cm hypoechoic area that is nonvascular. Possible cyst. Clinical correlation would be appropriate. Ordering Physician: Kishore Eid Performed By: Andrea Cole RVBucky
--- NOTE | 2021-05-16 13:10 | US_ITS ---
STUDY: SCROTUM ULTRASOUND REASON FOR EXAM: Male, 80 years old. Left-sided testicular pain. TECHNIQUE: Ultrasound evaluation of the scrotum was performed with color Doppler and static gastelum-scale imaging. COMPARISON: None. FINDINGS: RIGHT TESTICLE INTRATESTICULAR: There is a normal size of the right testicle. The right testicle measures 4.9 cm x 3.6 x 2.1 cm. There is a homogenous echotexture. There is normal arterial and normal venous vascularity. Small cysts are seen within the testicle. The largest measures 9 mm x 5 mm x 4 mm. EXTRATESTICULAR: The epididymis is normal in size. The epididymis head measures 1.1 cm x 1.5 cm x 0.9 cm. There is normal vascularity of the epididymis. There is a well-defined cystic structure within the epididymis, without internal echoes, consistent with an epididymal cyst. This measures 1.17 x 1.5 cm x 0.9 cm. There is no demonstrated hydrocele. There is no demonstrated varicocele. There is no demonstrated extratesticular mass or cyst. LEFT TESTICLE INTRATESTICULAR: There is a normal size of the left testicle. The left testicle measures 4.9 cm x 4.3 cm x 2.0 cm. There is a homogenous echotexture. There is normal arterial and normal venous vascularity. A cluster of small cysts is seen in the inferior aspect of the testicle. This measures 2.1 sided by 1.3 size by 1.2 cm. EXTRATESTICULAR: The epididymis is normal in size. The epididymis head measures 1.6 cm x 0.97 x 1.1 cm. There is normal vascularity of the epididymis. There is a well-defined cystic structure within the epididymis, without internal echoes, consistent with an epididymal cyst. This measures 3.3 cm x 2.7 cm x 1.6 cm. There is no demonstrated hydrocele. There is no demonstrated varicocele. There is no demonstrated extratesticular mass or cyst. US/Testicular with Arterial Flow IMPRESSION: Bilateral testicular cysts. Bilateral epididymal cysts more prominent on the left side. Electronically Signed: Charanjit Smith MD at 15:01 EST , Service support ,
--- NOTE | 2021-05-16 13:14 | ED.VIS.LOWEX ---
HPI History of Present Illness Chief Complaint: Lower Extremity Injury Narrative Narrative: 80-year-old male presenting with pain in the left lower extremity. He states he has had this for a while it was told he had superficial thrombophlebitis that he was started on blood thinners and after which he developed a GI bleed. Patient is currently not anticoagulated. Patient states that at times he also has pain in his testicles. He states that the left greater than right. He denies any trauma. Denies dysuria or hematuria. Patient is not having chest pain or shortness of breath. 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 Bigeminy BPH (benign prostatic hyperplasia) CAD (coronary artery disease) Cardiomyopathy in other diseases classified elsewhere D-dimer, elevated DDD (degenerative disc disease) DVT (deep venous thrombosis) Dyspnea on exertion Edema Essential hypertension Fibromyalgia Hemorrhoid HTN (hypertension) Hyperlipidemia Hypothyroid Nasal sinus polyp Postoperative atrial fibrillation Premature atrial contractions Premature ventricular contraction Pulmonary nodule Syncope White coat syndrome with hypertension Home Medications aspirin 81 mg PO DAILY 02/22/21 [History Last Taken 02/22/21] levothyroxine 75 mcg PO DAILY@0600 30 Days #30 tab 03/12/21 [Rx Last Taken Unknown] pantoprazole 40 mg PO DAILY 30 Days #30 tab 03/12/21 [Rx Last Taken Unknown] rosuvastatin [Crestor] 20 mg PO QHS 30 Days #30 tab 03/12/21 [Rx Last Taken Unknown] spironolactone 25 mg PO DAILY 30 Days #30 tab 03/12/21 [Rx Last Taken Unknown] lisinopril 10 mg tablet 10 mg PO DAILY 05/10/21 [History Last Taken Unknown] metoprolol tartrate 50 mg tablet 75 mg PO BID 30 Days #90 tab 05/10/21 [Rx Last Taken Unknown] Allergy/AdvReac Type Severity Reaction Status Date / Time erythromycin base Allergy Hives Verified 05/16/21 12:07 amoxicillin [From Augmentin] AdvReac Severe Itching Verified 05/16/21 12:07 atorvastatin AdvReac Severe myalgias Verified 05/16/21 12:07 clavulanic acid AdvReac Severe Itching Verified 05/16/21 12:07 [From Augmentin] fenofibrate [From Tricor] AdvReac Severe myalgias Verified 05/16/21 12:07 levofloxacin [From Levaquin] AdvReac Unknown Unknown Verified 05/16/21 12:07 Family History Father CVA (cerebral vascular accident) Hypertension Heart disease Mother CAD (coronary artery disease) Brother Hypertension Brother CAD (coronary artery disease) Hypertension Sister Hypertension Sister Patent foramen ovale Sister Hypertension Lung cancer Surgical History H/O hemorrhoidectomy History of back surgery History of cholecystectomy History of coronary artery bypass graft x 3 (~02/26/21) History of kidney surgery History of radiofrequency ablation procedure for cardiac arrhythmia (~10/2002) Hx of appendectomy Social History household members: none Smoking Status: Never smoker alcohol intake: never substance use type: does not use ROS ROS ED Constitutional Constitutional ED: Denies chills or fever(s) Eyes Eyes: Denies blurry vision or change in vision ENT ENT ED: Denies rhinorrhea or sore throat Cardiovascular Cardiovascular: Denies chest pain or palpitations Respiratory/Chest Respiratory/Chest: Denies cough or dyspnea Gastrointestinal Gastrointestinal: Denies abdominal pain, nausea or vomiting Genitourinary Genitourinary ED: Reports other Details: Testicular pain ; Denies dysuria or hematuria Musculoskeletal Musculoskeletal: Reports other Details: Left leg pain and swelling in the calf and inguinal area. Integumentary Denies Abrasions or rash Neurologic Neurologic: Denies headache(s) or weakness Psychiatric Psychiatric: Denies anxiety or depression EXAM Physical Exam Const Vital Signs: 05/16/21 12:05 Temperature 97.7 F L Temperature Source Temporal Pulse Rate 62 Respiratory Rate 14 Blood Pressure 137/91 H Blood Pressure Mean 106 Pulse Ox 98 Oxygen Delivery Method Room Air Positive well nourished General Appearance ED: NAD HEENT normocephalic and atraumatic Resp normal respiratory effort and clear to auscultation bilaterally Cardio regular rate and regular rhythm GI non-tender Palpation: soft Narrative: Tenderness to palpation of the testicles bilaterally. There is pain in the left epididymal region. Testicles are high riding. Cremasteric reflex intact bilaterally. Extremity Extremity Narrative: Tenderness to palpation over the left proximal medial thigh as well as in the left calf. There is some swelling in both of these areas. No cellulitic change. Neuro oriented x3 Sensorium / Orientation: alert Psych mental status grossly normal Skin Skin Narrative: As described above MDM MDM MDM Narrative Medical decision making narrative: Patient found to have superficial thrombophlebitis on the left lower extremity. He also has a Freeman's cyst which was present previously. He is also having testicular pain so I obtained an ultrasound of the testicles and it shows bilateral testicular cyst worse on the left which is consistent with the patient's pain. There is no torsion present. Patient will follow up with Dr. Hooks for his superficial thrombophlebitis and I will give him urology follow-up for the testicular cysts. Impression: 1. Bilateral testicular cyst 2. Superficial thrombophlebitis Lab Data Attestation: I reviewed the patient's lab results. Radiography Diagnostic Testing: Clinical Impression(s) from Imaging Studies Venous Doppler Study 05/16/21 12:40 Interpretation Summary There is no evidence of left lower extremity deep vein thrombosis. History suggest great saphenous vein partially harvested for coronary bypass grafting. Remainder present is dilated noncompressible and consistent with superficial thrombophlebitis extending to 0.9 cm from the saphenofemoral junction Abbreviated COVID-19 protocol Left popliteal space 1 x 2.76 cm hypoechoic area that is nonvascular. Possible cyst. Clinical correlation would be appropriate. Ordering Physician: Kishore Eid Performed By: Andrea Cole, RVT Testicular Ultrasound 05/16/21 13:10 IMPRESSION: Bilateral testicular cysts. Bilateral epididymal cysts more prominent on the left side. Electronically Signed: Charanjit Smith MD at 15:01 EST , Service support , Discharge Plan Triage Chief Complaint: Lower Extremity Injury ED Provider: Kishore Eid Dx/Rx/DC Orders Instructions: ED Thrombophlebitis, Superficial Prescriptions: No Action aspirin 81 mg Tablet,Chewable 81 mg PO DAILY RF: 0 spironolactone 25 mg Tablet 25 mg PO DAILY 30 Days Qty: 30 RF: 0 levothyroxine 75 mcg Tablet 75 mcg PO DAILY@0600 30 Days Qty: 30 RF: 0 pantoprazole 40 mg Tablet,Delayed Release (Dr/Ec) 40 mg PO DAILY 30 Days Qty: 30 RF: 0 rosuvastatin [Crestor] 20 mg Tablet 20 mg PO QHS 30 Days Qty: 30 RF: 0 metoprolol tartrate 50 mg tablet 75 mg PO BID 30 Days Qty: 90 RF: 0 lisinopril 10 mg tablet 10 mg PO DAILY RF: 0 Primary Care Provider: Jose Hooks Chi Referrals: Jese Perdomo MD [STAFF PHYSICIAN] - Jose Hooks Chi, MD [Primary Care Provider] - Activity Restrictions/Additional Instructions: You have epididymal cysts on your bilateral testicles. This is greater on the left side which is why you are experiencing more pain on the left. You also have superficial thrombophlebitis in your leg. You do not require anticoagulation with the blood thinner. For your epididymal cyst I will give you follow-up with urology. Follow-up with your primary care for the thrombophlebitis. Disposition Disposition: Home, Self Care
[2021-05-16 15:27] VITALS: BP 138/94; PULSE 87; RESP 15; O2SAT 99
== END 2021-05-16 15:27 | disposition home or self-care (01) ==
PROVIDERS: Emergency Provider Student in an Organized Health Care Education/Training Program; PCP Family Medicine Geriatric Medicine
DX: I80.02 Phlebitis and thrombophlebitis of superficial vessels of left lower extremity (principal); N44.2 Benign cyst of testis; M71.22 Synovial cyst of popliteal space [Baker], left knee; I10 Essential (primary) hypertension; E03.9 Hypothyroidism, unspecified; E78.5 Hyperlipidemia, unspecified; I43 Cardiomyopathy in diseases classified elsewhere; I25.10 Atherosclerotic heart disease of native coronary artery without angina pectoris; I48.91 Unspecified atrial fibrillation; M79.7 Fibromyalgia; K21.9 Gastro-esophageal reflux disease without esophagitis; N40.0 Benign prostatic hyperplasia without lower urinary tract symptoms; Z86.718 Personal history of other venous thrombosis and embolism; Z79.01 Long term (current) use of anticoagulants; Z79.82 Long term (current) use of aspirin; Z79.899 Other long term (current) drug therapy
CPT/HCPCS: 76870; 93971; 93976; 99282

== ENCOUNTER 2021-06-20 15:02 | Outpatient (CLI) | payer MEDICARE, SELFPAY ==
[2021-06-20 16:56] LABS: Absolute Lymphocyte Count 1.18 X10^3/uL (0.83-4.51); Absolute Neutrophil Count 4.2 X10^3/uL (2.0-7.7); Basophil# 0.04 X10^3/uL; Basophil% 0.6 % (0-1); Eosinophils% 3.2 % (0-5); Hematocrit 40.1 % (40-54); Hemoglobin 13.2 g/dL (13.0-16.5); Lymphocyte # 1.18 X10^3/ul (0.83-4.51); Lymphocyte % 19.1 % (19-41); Mean Corp Hgb Conc 32.9 g/dL (32-36); Mean Corpuscular Hgb 30.3 pg (27.0-32.0); Mean Platelet Vol. 10.2 fl (6.2-12.0); Monocyte# 0.56 X10^3/uL; Monocyte% 9.1 % (0-10); NRBC Flagged by Analyzer 0 % (0-5); Neutrophil # 4.17 X10^3/uL (2.7-7.7); Neutrophil % 67.7 % (47-70); Platelet Count 293 K/mm3 (150-450); RBC Distribution Width CV 13.2 % (11.6-14.6); RBC Distribution Width SD 44.2 fl (35.1-43.9); Red Blood Count 4.36 M/mm3 (4.6-6.2); White Blood Count 6.2 K/mm3 (4.4-11.0)
[2021-06-20 17:25] LABS: Vitamin D,25 Hydroxy 39.6 ng/mL
[2021-06-20 17:29] LABS: AST(SGOT) 18 U/L (15-37); Alanine Aminotransfer ALT/SGPT 32 U/L (16-61); Albumin, Serum 3.3 g/dL (3.2-5.0); Alkaline Phosphatase 57 U/L (45-117); Anion Gap 5 (5-15); BUN 22 mg/dL (7-18); BUN/Creat Ratio 16.4 RATIO (10-20); Calcium,Total 8.7 mg/dL (8.5-10.1); Chloride 108 mmol/L (98-107); Creatinine, Serum 1.34 mg/dL (0.70-1.30); EST Glomerular Filtration Rate 55 mL/min (>60); Est Glom Filt Rate - Afr Amer 66 mL/min (>60); Globulin 3.2 g/dL (2.2-4.2); Glucose 108 mg/dL (74-106); Potassium 4.5 mmol/L (3.5-5.1); Protein, Total 6.5 g/dL (6.4-8.2); Sodium Level 141 mmol/L (136-145); Thyroid Stim Hormone (TSH) 0.42 uIU/mL (0.358-3.74)
== END 2021-06-20 23:59 | disposition short-term general hospital (02) ==
PROVIDERS: PCP Family Medicine Geriatric Medicine; Visit Provider Family Medicine Geriatric Medicine
DX: E55.9 Vitamin D deficiency, unspecified (principal); I10 Essential (primary) hypertension
CPT/HCPCS: 36415; 80053; 82306; 84443; 85025

== ENCOUNTER 2021-07-09 07:54 | Outpatient (CLI) | payer MEDICARE, SELFPAY ==
--- NOTE | 2021-07-09 08:02 | CR.ITP_ITS ---
Diagnosis - General Information Admitting Diagnosis: S/P CABG Secondary Diagnosis: Bloot Clot in left leg post vein harvest from the akle to the groin and was treated with blood thinners. Personal Learning Style:: Audio/Visual, Written Barriers to Learning: Hearing Impairment, Vision Impairment Stage of change r/t lifestyle modifications:: Action Gave educational material for:: Treating Heart Disease, Emotions & Heart Disease, Stress Management & Relaxation, Sleep Disorders & Heart Disease, How The Heart Works, What it means to have Heart Disease, How Coronary Artery Disease is Diagnosed, Heart Procedures, What Heart Medications Do, Risk Factors & Modifications, Living an Active Life, Nutrition - Education/Goals Individual Counseling: Initial Assessment: Abnormal Cholesterol Levels, High Blood Pressure Cardiac Rehabilitation Goals: 1. Maintain the individual as the primary focus of care. 2. To improve the patient's quality of life. 3. Identification of cardiac risk factors and provide cardiac risk factor management. 4. Enhance the psychosocial status of the patient. 5. Reconditioning enough to allow the patient to resume customary activities. 6. Control symptoms of cardiac disease Personal Goals: Initial Assessment: Improve management of stress and emotions, Improve energy level, Participate in home exercise program, Get back to work, or to resume activities faster, Improve knowledge of cardiac disease, Improve muscle strength and endurance, Improve diet and eating habits (eat healthier), Control risk factors (learn risk factor modification) Scale for measuring improvement of personal goals: Enter appropriate number in Comments. 2 = Unchanged. 3 = Slightly Better. 4 = Moderate Improvement. 5 = Met my Goal - Diagnosis & Disease Process Outcomes/Goals: Pt IDs own risk factors & lifestyle modifications by Session 10, Verbalizes symptoms of angina & response by session 3., Pt independently manages Plan/Interventions: Assist Pt to ID & engage in lifestyle modification to reduce CVD risk, Instruct on individual risk factors, Review symptoms of angina & emergency actions, Review secondary diagnosis & identify educational needs. - Safety Referral to Physical Therapy: No Referral to [facility] Case Management: No Fall Risk Assessed:: Yes Assistive Devices:: None Exercise - Initial Assessment - Visit Date of Eval: 07/09/21 Session #:: 0 - pre-cardiac rehab evaluation Mets: Pre-: >5 METS for 30 minutes by discharge - Physician Prescribed Exercise Modalities: Treadmill, Airdyne, NuStep, Lateral [place] Frequency: 3x/week for 12 weeks [36 sessions] Intensity: 60-80% of age predicted maximum heart rate reserve Target Heart Rate:: 93-120 Resting Blood Pressure: 109/71 EKG Type: Sinus bradycardia w/1st degree AV block - Outcomes & Goals Goals:: Verbalizes understanding of THR, RPE & goal METS by session 6, Documents in home exercise log/reports 30 min aerobic 5 day/wk by DC, Demonstrates accurate pulse taking by DC - Intervention & Plan Exercise Program Goals: Instruct on personal THR & RPE, Instruct on MET level & personal MET goal, Show patient to take own pulse /validate performance until accurate, Instruct on home exercise - Physical Activity Home Exercise Physical Activity - Home Exercise: Safe Exercise, Warm-up, Self-monitoring, Cool-Down, Home Exercise > 30 min Daily, Sitting Time <3 hours/daily - Outcomes & Goals Outcomes/Goals: Demonstrates correct Warm-up/exercise Cool-Down (S3) if = 2.5 METs, Verbalizes symptoms of exercise intolerance by Session 3 (S3), Demonstrate safe equipment use (S3) & follows exercise prescrition (6) - Intervention & Plan Plan/Intervention: Instruct warm-up & cool-down if exercising at > 2 METs, Instruct on symptoms of exercise intolerance & actions to take, Instruct & monitor on saf, Assess intial functional capacity & safety risk Nutrition - Initial Assessment - Program Goals Nutrition Program Goals: LDL <100 optimal. 100 - 129 Near optimal. 130 - 159 Borderline High. 160 - 189 High. Total Cholesterol <200 desirable. 200 - 239 Borderline High. >/= 240 High. HDL < 40 Low >/=60 High. Triglycerides <150 desirable. <199 optimal. VlDL 5 - 40. HgbA1C <7%. BMI <25 Patient has diagnosis of Hyperlipidemia (ICD E78)?: Yes - Visit Date of Assessment:: 07/09/21 Session #:: 0 - pre-cardiac rehab evaluation - Cholesterol/Lipids Triglycerides (mg/dL): 184 Total Cholesterol (mg/dL): 271 LDL Cholesterol (mg/dL): 199 HDL Cholesterol (mg/dL): 35 Determine presence & major risk factors that modify LDL goal: Hypertension or hypertensive medication, Low HDL cholesterol <40 mg/dL*, Family history of premature CHD in Male < 55 years: female <65 yearsFa, Age men > 45 years; women >/= 55 years Outcomes/Goals: Pt IDs own risk factors & lifestyle modifications by Session 10, Verbalizes symptoms of angina & response by session 3., Pt independently manages Intervention/Plan: Instruct on personal lipid levels & lipid goals/NCEP guidelines, Instruct on cholesterol Referral to dietitian:: Yes - Medical Nutrition Therapy - Diabetes (Other Core Measures) Diabetes Type: Not Applicable - Weight Mgt (Other Care) Not Applicable: Yes Height: 5 ft 11 in Weight:: 170 lb BMI: 23.7 Diagnosis Overweight/Obesity BMI> 30% ICD-10 E66: No Diagnosis High BMI/Morbid Obesity BMI> 35% ICD-10 Z68: No Outcomes/Goals: Pt sets, maintains & shows weight loss goal & trend during rehab Intervention/Plan: Instruct on ideal BMI & set weight loss goal w/patient - Healthy Eating Habits Will attend diet classes:: Yes Outcomes/Goals:: Consume diet rich in vegs,fruits,whole grain/high fiber,fish,lean meat, Limit sat/trans fats,cholesterol & added salts & sugars Intervention/Plan:: Assess current eating habits - Education Gave educational materials for:: Healthy eating Nutrition - 30-Day Assessment Nutrition - 60-Day Assessment Nutrition - 90-Day Assessment Nutrition - Final Assessment Medical - Initial Assessment - Visit Date of Eval: 07/09/21 Session #:: 0 - pre-cardiac rehab evaluation - Medication Compliance Preventative Medication(s):: Aspirin, Statin/lipid, Beta jack H/O mental health issues: depression, anxiety, or addiction?: No Doesn?t believe in the benefits of treatment?: No Believes medications are unnecessary or harmful?: No Has a concern about medication side effects?: No Expresses concern over the cost of medications?: No Outcomes/Goals: Verbalizes medications,desired effect & common side effects @ DC, Pt self-reports following medication regimen, Keeps card in wallet w/medications listed by DC Interventions/plans: Instruct on medication effects & side effects, Review medication list w/patient every two weeks, Instruct importance of taking meds as ordered & assist problem solving - Tobacco Use Tobacco Use: Non-smoker - Hypertension Hypertension Diagnosis:: Hypertension ICD-10 I10 Resting Blood Pressure:: 109/71 [employer] Hypertension Guidelines: [place] [employer] Hypertension Guidelines. Normal BP Less than 120/80. Elevated BP 120/80. Hypertension Stage 1: BP 130-139/80-89. Hypertesnion Stage 2: BP 140 or higher/90 or higher. Hypertension Crisis: BP higher than 180/120 Outcomes/Goals: Able to verbalize/achieve optimal blood pressure <130/80, Incorporates diet changes & exercise for blood pressure control by DC Interventions/plan: Instruct on optimal blood pressure, hypertension & medications, Instruct on effects of sodium, alcohol, stress, exercise &hypertension - Tobacco Cessation Referral Smoking Cessation Referral:: No Individual Education/Counseling:: No Education Schedule Given:: Yes - Referenced Online education W/instructions Medical- 30-Day Assessment Medical- 60-Day Assessment Medical- 90-Day Assessment Medical - Final Assessment Psychosocial - Initial Assess - VIsit Date of Eval: 07/09/21 Session #:: 0 - pre-cardiac rehab evaluation Not Applicable: Yes History of previous Mental disease:: No - Psychosocial Test Tool Used:: Jlans Terry QOL Cardiac, PHQ-9 Questionnaire phq-9 Severity: Severity. 1-4 Minimal Depression. 5-9 Mild Depression. 10-14 Moderate Depression. 15-19 Moderately Sever Depression. 20-27 Severe Depression. Rule: - Referral to Behavioral Health PS - Interventions: Yes Attend Stress Management Classes, No Referral to Behavioral Health if PHQ-9 score >9:, No Referral to [facility], No Referral to Physician if PHQ-9 if score is 5-9: - Outcomes/Goals: See list Psychosocial Outcomes/Goals:: ID's personal stressors & 2 strategies to manage stress by discharge - Intervention/Plan: See List Interventions/Plan:: Instruct/assist pt to develop coping & personal stress Mgt strategies, Refer to Behavioral Health if appropriate, Instruct patient to recognize signs & symptoms of depression, Instruct patient to recog Psychosocial - 30-Day Assess Psychosocial - 60-Day Assess Psychosocial - 90-Day Assess Psychosocial - Final Assessmen Patient Health Questionnaire Initial Assessment 1. Little interest or pleasure in doing things: Several days 2. Feeling down, depressed, or hopeless: Several days 3. Trouble falling or staying asleep, or sleeping too much: Nearly every day 4. Feeling tired or having little energy: More than half the days 5. Poor appetite or overeating: Not at all 6. Feeling bad about yourself -- or that you are a failure or have let yourself or your family down: Several days 7. Trouble concentrating on things, such as reading the newspaper or watching television: More than half the days 8. Moving or speaking so slowly that other people could have noticed. Or the opposite - being so fidgety or restless that you have been moving around a lot more than usual: Not at all 9. Thoughts that you would be better off , or of hurting yourself in some way: Several days How difficult have these problems made it for you to do your work, take care of things at home, or get along with other people?: Very difficult Total Score: 11 ISMA-Q SV Test - Statements CAD is a disease of the arteries in the heart: True Examples of risk factors for heart disease: True Angina is chest pain or discomfort: True The benefits of resistance training include: True Eating more meat and dairy products: True Anti-platelet medications such as aspirin are important: True The only effective way to manage stress: False An exercise warm-up slowly increases heart rate: True Prepared, processed foods usually have high sodium: True Depression is common after a heart attack: True The statin medications lower cholesterol: True To control blood pressure, lower the amount of sodium: True If someone gets chest discomfort during walking: False Transfats are partially hydrogenated vegetable oils: True Sleep apnea that is not treated increases the risk: True To control cholesterol, one should become a vegetarian: False Someone knows if he/she is exercising at the right level: True Diabetes cannot be prevented with exercise & health eating: True Stress is a large risk for heart attack: True A diet that can help lower blood pressure is rich in: True - Total Score Total Correct Responses: 16 Self-Efficacy Initial Assessment We would like to know how confident you are in doing certain activities. Please select your confidence level for:: Select your confidence level for the following using the scale 1-10 where 1 is not at all confident and 10 is totally confident. Your score is the average of all 6 responses. Fatigue: How confident are you that you can keep the fatigue caused by your disease from interfering with the things you want to do? Select Number: 6 Physical Discomfort or Pain: How confident are you that you can keep the physical discomfort or pain of your disease from interfering with the things you want to do? Select Number: 5 Emotional Distress: How confident are you that you can keep the emotional distress caused by your disease from interfering with the things you want to do? Select Number: 4 Other Symptoms or Health Problems: How confident are you that you can keep other symptoms or health problems from interfering with the things you want to do? Select Number: 4 Different Tasks and Activities: How confident are you that you can do the different tasks and activities needed to manage your health condition so as to reduce your need to see a doctor? Select Number: 5 Medication: How confident are you that you can do things other than just taking medication to reduce how much your illness affects your everyday life? Select Number: 4 Total Score:: 4 Nutrition Survey - Nutrition Survey Initial Have you lost >10 lbs over the past 2 months without trying?: No Are you following a special diet at home for diabetes, low fat, or low salt?: Yes Are you interested in meeting with a dietitian for help understanding your diet?: No Do you eat less than 3 meals a day?: No Do you eat fatty meats (valdes, sausage, ribs, etc), fried foods, desserts, large amounts of salad dressings, margarine, butter, or cheese most days?: No Do you have food allergies? [Enter types in comment field]: No Do you eat in restaurants more than 3 times a week?: No Do you season food with salt, seasoning salt, or garlic salt?: Yes
--- NOTE | 2021-07-09 08:03 | CR.HP_ITS ---
CR - History & Physical - General Arrival date:: 07/09/21 Arrival time:: 08:04 Date of Referral:: 06/27/21 Date of CR Evaluation:: 07/09/21 Referring Physician: Dr. Geovanny Michelle Primary Diagnosis: S/P CABG - History of Present Cardiac Event Onset Date: Enter Onset Date of cardiac illnesses in Comment field below Coronary Artery Bypass Graft:: Yes - 02/26/2021 @ [facility] Type of Symptoms:: August 2020 had been admitted to hospital had a nuclear stress test and then a heart cath her at [facility], found 3 vessels pretty well blocked and was then sent up to [facility]. Interventions with present event:: Had 3 vessel bypass done Were there any complications?: Developed blood clot left leg, still having trouble with hips and legs. - Sleep Disorder Evaluation Hx of Sleep Apnea: No Do you snore loudly (louder than talking or can be heard through closed doors)?: No Do you often feel tired/ fatigued/ sleepy during daytime?: Yes - Don't sleep well at night and sleep alot during the day. Has anyone observed you stop breathing during sleep?: No History of Hypertension (for STOP score): Yes STOP Results: Positive - Medications Home Medications: Ambulatory Orders Medication Instructions Recorded aspirin 81 mg PO DAILY 02/22/21 levothyroxine 75 mcg PO DAILY@0600 30 Days #30 03/12/21 tab pantoprazole 40 mg PO DAILY 30 Days #30 tab 03/12/21 rosuvastatin [Crestor] 20 mg PO QHS 30 Days #30 tab 03/12/21 spironolactone 25 mg PO DAILY 30 Days #30 tab 03/12/21 lisinopril 10 mg tablet 10 mg PO DAILY #90 tab 07/08/21 metoprolol tartrate 50 mg tablet 75 mg PO BID 30 Days #270 tab 07/08/21 - Allergies Allergies/Adverse Reactions: Allergies erythromycin base Allergy (Verified 05/16/21 12:07) Hives amoxicillin [From Augmentin] Adverse Reaction (Severe, Verified 05/16/21 12:07) Itching atorvastatin Adverse Reaction (Severe, Verified 05/16/21 12:07) myalgias clavulanic acid [From Augmentin] Adverse Reaction (Severe, Verified 05/16/21 12:07) Itching fenofibrate [From Tricor] Adverse Reaction (Severe, Verified 05/16/21 12:07) myalgias levofloxacin [From Levaquin] Adverse Reaction (Unknown, Verified 05/16/21 12:07) Unknown Advanced Directives - Advanced Directives Power of Puff Ironer: Yes - Daughter is POA for Healthcare Living Will: Yes Advance Directives Information Provided: No Advance Directives on File: Yes DNR Order?:: Yes - MOLST See MOLST form: No Past Medical History - Covid-19 Screening Fever: No Unexplained muscle aches: No Current respiratory symptoms: No Upper respiratory infections symptoms: No Gastro-intestinal symptoms: No [id number] symptoms: No Has tested positive for COVID-19 in last 30 days: No Date of testin08/07/20 - Had Moderna both vaccine and J&J booster vaccine Had contact w/person w/symptoms or Covid-19 (+) last 14 days: No Has High Risk Exposures ID'd by Health dept/Inf Control team: No 65 years or older:: Yes Lives in Assisted Living facility:: No Has a chronic lung disease or moderate to severe asthma:: No Has a serious heart condition:: Yes Immunocompromised:: No Severely obese (Body Mass Index of 40 or higher):: No Diabetic:: No Has chronic kidney disease undergoing dialysis:: No Has liver disease:: No - Past Medical Illness Medical History: Past Medical History (Last Reviewed 06/27/21 @ 10:13 by Rina MAYEN, PA) Acid reflux K21.9 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 Bigeminy I49.9 BPH (benign prostatic hyperplasia) N40.0 CAD (coronary artery disease) I25.10 Cardiomyopathy in other diseases classified elsewhere I43 D-dimer, elevated R79.89 DDD (degenerative disc disease) Dyspnea on exertion R06.00 Edema R60.9 Essential hypertension I10 Fibromyalgia M79.7 Hemorrhoid K64.9 HTN (hypertension) I10 Hyperlipidemia E78.5 Hypothyroid E03.9 Nasal sinus polyp J33.8 Postoperative atrial fibrillation I97.89, I48.91 Premature atrial contractions I49.1 Premature ventricular contraction I49.3 Pulmonary nodule R91.1 Syncope R55 White coat syndrome with hypertension I10 - Past Surgical History Surgical History: Past Surgical History (Last Reviewed 06/27/21 @ 10:13 by Rina MAYEN, PA) H/O hemorrhoidectomy Z98.890 X 2 History of back surgery Z98.890 History of cholecystectomy Z90.49 History of coronary artery bypass graft x 3 Onset Date: ~02/26/21 Z95.1 CABG x3- [place] in situ mammary end to side mid LAD, SVG aorta end to side OM1, SVG aorta to PDA Dr. 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 History of radiofrequency ablation procedure for cardiac arrhythmia Onset Date: ~10/2002 Z98.890 for ventricular arrhythmia Hx of appendectomy Z90.49 Surgical History: - - Abdominal tumor 1974, hemorrhoidectomy in 1992, back surgery 1998, kidney surgery in 2001, cholecystectomy, appendectomy, cardiac ablation - Family History Summary Family History: Family History (Last Reviewed 06/27/21 @ 10:13 by Rina MAYEN, PA) Father CVA (cerebral vascular accident) Hypertension Heart disease Mother CAD (coronary artery disease) Brother Hypertension Brother CAD (coronary artery disease) Hypertension Sister Hypertension Sister Patent foramen ovale Sister Hypertension Lung cancer Social History - Smoking History Smoking Status: Never smoker Hx Tobacco Use: No Hx Smoking Exposure: No - Alcohol Use Alcohol Usage: No - Substance Abuse Hx Substance Use: No - Occupation Occupation (List type of work in comments):: Retired - Hobbies, Recreation, Social Activities Hobbies: Other - automotive resoration, yard work Recreational Activities: I am able to engage in a few activities Social Environment - Status Marital Status: - Current Living Arrangements Living Environment:: Alone, Spouse - Children How many children do you have?: 2 - Daughter lives [facility], other in [place] Do any of your children live nearby?: Yes - Safety Do you feel safe in your surroundings?: Yes Review of Systems - Review of Systems Hints: Right click = Denies (Slash). Left click = Reports ([place]) Review of Present Symptoms: Reports: Shortness of Breath with Exertion - a little bit, no horrible, Operative Discomfort - left leg, hip and groin from blood clot., Fatigue, Appetite - Normal, Appetite - Special Diet - no salt, no fat, low cholesterol. Denies: Shortness of Breath at Rest, Angina, Wound Healing, Dizziness/Lightheadedness, Sleep - Normal - awake alot at night, sleep alot during the day - Pain Is Patient Pain Free?: No Pain Location: pelvis, lower extremity - left leg , hip and groin Pain Level: 8/10 Risk Factor Assessment - Chief Complaint Chief Complaint: pt is a 80 yr old male patient of Dr. Michelle who had a 3 vessel bypass done on 02/26/2021 @ [facility]. Post operatively he had developed a large blood clot from the ankle to the groin area in his left leg and was susequently treated with blood thinners. Patient still has some residual discomfort in the hip and groin area from the clot. - Vital Signs Temperature: 97.8 F Respiratory Rate: 18 Pulse Ox: 97 Blood Pressure: 109/71 Nailbeds:: pink in color - Pulse Pulse Rate: 57 Pulse Rhythm: Regular - Hypertension How long have you been treated?: 30 to 40 years now On medication(s)?: yes Blood Pressure Sitting - Left Arm: 109/71 - Stress Stress: Recent - Blood Cholesterol/Lipids Total Cholesterol (mg/dL) Goal = less than 200 mg/dL: 271 HDL Cholesterol (mg/dL) Goal = less than 40 mg/dL: 35 LDL Cholesterol (mg/dL) Goal = less than 70 mg/dL: 199 Triglycerides (mg/dL) Goal = less than 150 mg/dL: 184 - Obesity Height: 5 ft 11 in Weight:: 170 lb Weight in Pounds: 170.0 lbs Weight Source: Standing Scale Body Mass Index (BMI): 23.7 Nutritional Referral for Obesity: No - Physical Inactivity Physical Inactivity: Recreational activity - DR. Jaime had sent patient to [facility] for exercise S/P CABG and patient states they were making situation worse and doesn't understand why Dr. Hooks sent him there and not to cardiac rehab. - Risk Stratification Risk Guidelines: Lowest Risk: Risk Factor for Smoking, Risk Factor for Diabetes, Risk Factor for Obesity, Risk Factor for Hypertension, Risk Factor for Sedentary Lifestyle, Risk Factor for Depression, Moderate Risk: Risk Factor for Dyslipidemia, Risk Factor for Sedentary Lifestyle - Family History Family History: Family History (Last Reviewed 06/27/21 @ 10:13 by Rina MAYEN, PA) Father CVA (cerebral vascular accident) Hypertension Heart disease Mother CAD (coronary artery disease) Brother Hypertension Brother CAD (coronary artery disease) Hypertension Sister Hypertension Sister Patent foramen ovale Sister Hypertension Lung cancer Motivation - Motivation to Participate On a scale of 1 to 10, how prepared are you to commit to attending program?: 8 What do you see as barriers to successfully being able to complete the program?: pain in his hips and groin What do you see as the benefits of succesfully completing the program? In other words, what do you hope to get out of participating in the program?: get me back to where I was in life, not miserable and held down. Are there issues you are dealing with that will interfere with completing the program?: other than the pain, no Do you have a spouse or signficant other, family or friends who will help support you to complete the program?: yes.
[2021-07-09 08:40] VITALS: BP 109/71; PULSE 57; RESP 18; TEMP 36.6; O2SAT 97; BMI 23.7
[2021-07-09 09:15] VITALS: BP 109/71; BMI 23.7
== END 2021-07-09 23:59 | disposition home or self-care (01) ==
LOC: CR 07:55
PROVIDERS: PCP Family Medicine Geriatric Medicine; Referring Provider Internal Medicine Cardiovascular Disease; Visit Provider Internal Medicine Cardiovascular Disease
DX: I25.10 Atherosclerotic heart disease of native coronary artery without angina pectoris (principal); I43 Cardiomyopathy in diseases classified elsewhere; I48.91 Unspecified atrial fibrillation; N40.0 Benign prostatic hyperplasia without lower urinary tract symptoms; I10 Essential (primary) hypertension; M79.7 Fibromyalgia; E78.5 Hyperlipidemia, unspecified; E03.9 Hypothyroidism, unspecified; I49.3 Ventricular premature depolarization; Z95.1 Presence of aortocoronary bypass graft; K21.9 Gastro-esophageal reflux disease without esophagitis; Z79.82 Long term (current) use of aspirin; Z79.899 Other long term (current) drug therapy

== ENCOUNTER 2021-07-16 07:35 | Outpatient (CLI) | payer MEDICARE, SELFPAY ==
--- NOTE | 2021-07-16 08:08 | VDLE_ITS ---
Reason For Study: Swelling Procedure LEFT This is a venous duplex using B-mode, color CFV is compressible, spontaneous, phasic, flow and spectral Doppler. competent, and demonstrates normal Exam performed in department. augmentation. A preliminary report was called and/or faxed FV is compressible, spontaneous, phasic, to Jessica. competent and demonstrates normal augmentation. POP V is compressible, spontaneous, phasic, competent and demonstrates normal augmentation. T/P Trunk is compressible. PTV is compressible. LT PerV is compressible. GSV is partially harvested for CABG. GSV is dilated and noncompressible at SFJ and knee to prox calf. SVT is 0.65 cm from SFJ. Nonvascularized structure noted in the left popliteal fossa measuring 1.59 x 1.81 x 3.63 cm. VL/Venous Duplex US, Unilateral Interpretation Summary No DVT noted left leg. SVT noted in the residual greater saphenous vein from th e junction down to where it was previously harvested. Ordering Physician: Nils Lopez Referring Physician: Jose Hooks Chi Performed By: Oneida Mcallister RVT
== END 2021-07-16 23:59 | disposition home or self-care (01) ==
LOC: CVS 07:36
PROVIDERS: PCP Family Medicine Geriatric Medicine; Referring Provider Surgery Vascular Surgery; Visit Provider Surgery Vascular Surgery
DX: I82.90 Acute embolism and thrombosis of unspecified vein (principal); M79.89 Other specified soft tissue disorders
CPT/HCPCS: 93971

== ENCOUNTER 2021-07-29 15:45 | Outpatient (RCR) | payer MEDICARE, SELFPAY | END 2021-07-29 23:59 | LOC: CR 15:45 | PROVIDERS: PCP Family Medicine Geriatric Medicine; Referring Provider Internal Medicine Cardiovascular Disease; Visit Provider Internal Medicine Cardiovascular Disease | DX: Z95.1 Presence of aortocoronary bypass graft (principal) | CPT/HCPCS: 93798 ==

== ENCOUNTER 2021-08-07 12:00 | Outpatient (CLI) | payer MEDICARE, SELFPAY ==
[2021-08-05 13:10] VITALS: BMI 24.5
[2021-08-07 16:16] LABS: Absolute Lymphocyte Count 1.39 X10^3/uL (0.83-4.51); Absolute Neutrophil Count 4.1 X10^3/uL (2.0-7.7); Basophil# 0.03 X10^3/uL; Basophil% 0.5 % (0-1); Eosinophil# 0.25 X10^3/uL; Eosinophils% 3.8 % (0-5); Hematocrit 42.9 % (40-54); Hemoglobin 14.3 g/dL (13.0-16.5); Lymphocyte # 1.39 X10^3/ul (0.83-4.51); Lymphocyte % 21.3 % (19-41); Mean Corp Hgb Conc 33.3 g/dL (32-36); Mean Corpuscular Hgb 30.8 pg (27.0-32.0); Mean Corpuscular Volume 92.3 fL (80-94); Monocyte# 0.69 X10^3/uL; Monocyte% 10.6 % (0-10); NRBC Flagged by Analyzer 0 % (0-5); Neutrophil # 4.14 X10^3/uL (2.7-7.7); Neutrophil % 63.2 % (47-70); Platelet Count 288 K/mm3 (150-450); RBC Distribution Width CV 13.2 % (11.6-14.6); RBC Distribution Width SD 44.2 fl (35.1-43.9); Red Blood Count 4.65 M/mm3 (4.6-6.2); White Blood Count 6.5 K/mm3 (4.4-11.0)
[2021-08-07 16:44] LABS: Anion Gap 3 (5-15); BUN 31 mg/dL (7-18); CRP < 2.90 mg/L (0.0-3.0); Calcium,Total 9.6 mg/dL (8.5-10.1); Chloride 111 mmol/L (98-107); Creatinine, Serum 1.55 mg/dL (0.70-1.30); EST Glomerular Filtration Rate 46 mL/min (>60); Erythrocyte Sedimentation Rate 21 mm/hr (0-20); Est Glom Filt Rate - Afr Amer 56 mL/min (>60); Glucose 82 mg/dL (74-106); Potassium 4.9 mmol/L (3.5-5.1); Sodium Level 143 mmol/L (136-145)
== END 2021-08-07 23:59 | disposition home or self-care (01) ==
LOC: POLAB3 12:01
PROVIDERS: PCP Family Medicine Geriatric Medicine; Visit Provider Family Medicine Geriatric Medicine
DX: M35.3 Polymyalgia rheumatica (principal)
CPT/HCPCS: 36415; 80048; 85025; 85652; 86140

== ENCOUNTER 2021-08-26 14:59 | Outpatient (CLI) | payer MEDICARE, SELFPAY ==
[2021-08-05 13:10] VITALS: BMI 24.5
== END 2021-08-26 23:59 | disposition home or self-care (01) ==
LOC: POLAB3 15:00 → LABSPEC 15:00
PROVIDERS: PCP Family Medicine Geriatric Medicine; Visit Provider Family Medicine Geriatric Medicine
DX: N39.0 Urinary tract infection, site not specified (principal)
CPT/HCPCS: 87077; 87086; 87088; 87186

== ENCOUNTER 2021-08-26 15:45 | Outpatient (RCR) | payer MEDICARE, SELFPAY ==
--- NOTE | 2021-08-05 13:01 | CR.ITP_ITS ---
Diagnosis Exercise - 30-day Assessment - Visit Date of Eval: 08/05/21 Session #:: 11 - Physician Prescribed Exercise Modalities: Treadmill, Airdyne, NuStep, SciFit Frequency: 3x/week for 12 weeks [36 sessions] Intensity: 60-80% of age predicted maximum heart rate reserve Current METSs:: 4.0 Target Heart Rate:: 93-120 Current RPE:: 11-12 Maximum Excercise HR:: 77 Resting Blood Pressure: 98/48 Maximum Exercise Blood Pressure: 148/70 EKG Type: NSR with rare PACs PVCs Current Physical Activity or Exercising minutes: 39:44 - Outcomes & Goals Goals:: Verbalizes understanding of THR, RPE & goal METS by session 6, Documents in home exercise log/reports 30 min aerobic 5 day/wk by DC, Demonstrates accurate pulse taking by DC - Intervention & Plan Exercise Program Goals: Instruct on personal THR & RPE, Instruct on MET level & personal MET goal, Show patient to take own pulse /validate performance until accurate, Instruct on home exercise - 30-day Reassessments 30 day Reassessments:: Progressing - Physical Activity Home Exercise Physical Activity - Home Exercise: Safe Exercise, Warm-up, Self-monitoring, Cool-Down, Home Exercise > 30 min Daily, Sitting Time <3 hours/daily - Outcomes & Goals Outcomes/Goals: Demonstrates correct Warm-up/exercise Cool-Down (S3) if = 2.5 METs, Verbalizes symptoms of exercise intolerance by Session 3 (S3), Demonstrate safe equipment use (S3) & follows exercise prescrition (6) - Intervention & Plan Plan/Intervention: Instruct warm-up & cool-down if exercising at > 2 METs, Instruct on symptoms of exercise intolerance & actions to take, Instruct & monitor on saf, Assess intial functional capacity & safety risk - 30-day Reassessments 30 day Reassessments:: Progressing Nutrition - Initial Assessment Nutrition - 30-Day Assessment - Program Goals Nutrition Program Goals: LDL <100 optimal. 100 - 129 Near optimal. 130 - 159 Borderline High. 160 - 189 High. Total Cholesterol <200 desirable. 200 - 239 Borderline High. >/= 240 High. HDL < 40 Low >/=60 High. Triglycerides <150 desirable. <199 optimal. VlDL 5 - 40. HgbA1C <7%. BMI <25 Patient has diagnosis of Hyperlipidemia (ICD E78)?: Yes - Visit Date of Assessment:: 08/05/21 Session #:: 11 - 1894 - Cholesterol/Lipids Triglycerides (mg/dL): 184 Total Cholesterol (mg/dL): 271 LDL Cholesterol (mg/dL): 199 HDL Cholesterol (mg/dL): 35 Determine presence & major risk factors that modify LDL goal: Hypertension or hypertensive medication, Low HDL cholesterol <40 mg/dL*, Family history of premature CHD in Male < 55 years: female <65 yearsFa, Age men > 45 years; women >/= 55 years Outcomes/Goals: Pt IDs own risk factors & lifestyle modifications by Session 10, Verbalizes symptoms of angina & response by session 3., Pt independently manages Intervention/Plan: Instruct on personal lipid levels & lipid goals/NCEP guidelines, Instruct on cholesterol Referral to dietitian:: Yes 30-day Reassessments:: Progressing - Diabetes (Other Core Measures) Diabetes Type: Not Applicable - Weight Mgt (Other Care) Height: 5 ft 11 in Weight:: 175 lb 8 oz BMI: 24.5 Diagnosis Overweight/Obesity BMI> 30% ICD-10 E66: No Diagnosis High BMI/Morbid Obesity BMI> 35% ICD-10 Z68: No - Healthy Eating Habits Will attend diet classes:: Yes Outcomes/Goals:: Consume diet rich in vegs,fruits,whole grain/high fiber,fish,lean meat, Limit sat/trans fats,cholesterol & added salts & sugars Intervention/Plan:: Assess current eating habits 30-day Reassessments:: Progressing - Education Gave educational materials for:: Healthy eating Nutrition - 60-Day Assessment Nutrition - 90-Day Assessment Nutrition - Final Assessment Medical - Initial Assessment Medical- 30-Day Assessment - Visit Date of Eval: 08/05/21 Session #:: 11 - Medication Compliance Preventative Medication(s):: Aspirin, Statin/lipid, Beta jack H/O mental health issues: depression, anxiety, or addiction?: No Doesn?t believe in the benefits of treatment?: No Believes medications are unnecessary or harmful?: No Has a concern about medication side effects?: No Expresses concern over the cost of medications?: No Outcomes/Goals: Verbalizes medications,desired effect & common side effects @ DC, Pt self-reports following medication regimen, Keeps card in wallet w/medications listed by DC Interventions/plans: Instruct on medication effects & side effects, Review medication list w/patient every two weeks, Instruct importance of taking meds as ordered & assist problem solving 30-day Reassessments:: Progressing - Tobacco Use Tobacco Use: Non-smoker - Hypertension Hypertension Diagnosis:: Hypertension ICD-10 I10 Resting Blood Pressure:: 98/48 [place] [employer] Hypertension Guidelines: [place] [employer] Hypertension Guidelines. Normal BP Less than 120/80. Elevated BP 120/80. Hypertension Stage 1: BP 130-139/80-89. Hypertesnion Stage 2: BP 140 or higher/90 or higher. Hypertension Crisis: BP higher than 180/120 Peak Exercise Blood Pressure:: 148/70 Outcomes/Goals: Able to verbalize/achieve optimal blood pressure <130/80, Incorporates diet changes & exercise for blood pressure control by DC Interventions/plan: Instruct on optimal blood pressure, hypertension & medications, Instruct on effects of sodium, alcohol, stress, exercise &hypertension 30 day Reassessments:: Progressing - Tobacco Cessation Referral Smoking Cessation Referral:: No Individual Education/Counseling:: No Education Schedule Given:: Yes Medical- 60-Day Assessment Medical- 90-Day Assessment Medical - Final Assessment Psychosocial - Initial Assess Psychosocial - 30-Day Assess - VIsit Date of Eval: 08/05/21 Session #:: 11 Not Applicable: Yes History of previous Mental disease:: No - Psychosocial Test Tool Used:: PHQ-9 Questionnaire phq-9 Severity: Severity. 1-4 Minimal Depression. 5-9 Mild Depression. 10-14 Moderate Depression. 15-19 Moderately Sever Depression. 20-27 Severe Depression. Rule: - Referral to Behavioral Health PS - Interventions: Yes Attend Stress Management Classes, No Referral to Behavioral Health if PHQ-9 score >9:, No Referral to [facility], No Referral to Physician if PHQ-9 if score is 5-9: - Outcomes/Goals: See list Psychosocial Outcomes/Goals:: ID's personal stressors & 2 strategies to manage stress by discharge - Intervention/Plan: See List Interventions/Plan:: Assess stressors,coping strategies & signs of derpression on admission, Instruct/assist pt to develop coping & personal stress Mgt strategies, Instruct patient to recognize signs & symptoms of depression, Instruct patient to recog - 30-day Reassessments: 30 day Reassessments:: Progressing Psychosocial - 60-Day Assess Psychosocial - 90-Day Assess Psychosocial - Final Assessmen Patient Health Questionnaire 30-Day Re-eval Assessment 1. Little interest or pleasure in doing things: Several days 2. Feeling down, depressed, or hopeless: Several days 3. Trouble falling or staying asleep, or sleeping too much: Nearly every day 4. Feeling tired or having little energy: More than half the days 5. Poor appetite or overeating: Not at all 6. Feeling bad about yourself -- or that you are a failure or have let yourself or your family down: Several days 7. Trouble concentrating on things, such as reading the newspaper or watching television: More than half the days 8. Moving or speaking so slowly that other people could have noticed. Or the opposite - being so fidgety or restless that you have been moving around a lot more than usual: Not at all 9. Thoughts that you would be better off , or of hurting yourself in some way: Several days How difficult have these problems made it for you to do your work, take care of things at home, or get along with other people?: Very difficult - We are concerned with score of his PHQ-9 and depression not addressed by his PCP. Total Score: 11 Self-Efficacy Nutrition Survey
[2021-08-05 13:10] VITALS: BP 148/70; BP 98/48; BMI 24.5
== END 2021-08-29 23:59 | disposition home or self-care (01) ==
LOC: CR 15:45
PROVIDERS: PCP Family Medicine Geriatric Medicine; Referring Provider Internal Medicine Cardiovascular Disease; Visit Provider Internal Medicine Cardiovascular Disease
DX: Z95.1 Presence of aortocoronary bypass graft (principal)
CPT/HCPCS: 93798

== ENCOUNTER 2021-09-06 08:00 | Outpatient (RCR) | payer MEDICARE, SELFPAY ==
[2021-08-05 13:10] VITALS: BMI 24.5
[2021-08-30 00:40] VITALS: BP 148/70; BP 98/48
--- NOTE | 2021-09-04 10:19 | CR.ITP_ITS ---
Diagnosis - General Information Admitting Diagnosis: CABG Exercise - 60-day Assessment - Visit Date of Eval: 09/04/21 Session #:: 23 - Physician Prescribed Exercise Modalities: Treadmill, NuStep, SciFit Frequency: 3x/week for 12 weeks [36 sessions] Intensity: 60-80% of age predicted maximum heart rate reserve Current METSs:: 4 Target Heart Rate:: 93-120 Current RPE:: 11-12 Maximum Excercise HR:: 92 Resting Blood Pressure: 112/68 Maximum Exercise Blood Pressure: 138/78 EKG Type: SR with rare PAC's occas PVC's - Outcomes & Goals Goals:: Verbalizes understanding of THR, RPE & goal METS by session 6, Documents in home exercise log/reports 30 min aerobic 5 day/wk by DC, Demonstrates accurate pulse taking by DC, Other additional outcome/goals: see below - Intervention & Plan Exercise Program Goals: Instruct on personal THR & RPE, Instruct on MET level & personal MET goal, Show patient to take own pulse /validate performance until accurate, Instruct on home exercise, Other additional plan/int - 30-day Reassessments 30 day Reassessments:: Progressing - Physical Activity Home Exercise Physical Activity - Home Exercise: Safe Exercise, Warm-up, Self-monitoring, Cool-Down, Home Exercise > 30 min Daily, Sitting Time <3 hours/daily - Outcomes & Goals Outcomes/Goals: Demonstrates correct Warm-up/exercise Cool-Down (S3) if = 2.5 METs, Verbalizes symptoms of exercise intolerance by Session 3 (S3), Demonstrate safe equipment use (S3) & follows exercise prescrition (6), Other: See below - Intervention & Plan Plan/Intervention: Instruct warm-up & cool-down if exercising at > 2 METs, Instruct on symptoms of exercise intolerance & actions to take, Instruct & monitor on saf, Assess intial functional capacity & safety risk, Other See below - 30-day Reassessments 30 day Reassessments:: Progressing Nutrition - Initial Assessment Nutrition - 30-Day Assessment Nutrition - 60-Day Assessment - Program Goals Nutrition Program Goals: LDL <100 optimal. 100 - 129 Near optimal. 130 - 159 Borderline High. 160 - 189 High. Total Cholesterol <200 desirable. 200 - 239 Borderline High. >/= 240 High. HDL < 40 Low >/=60 High. Triglycerides <150 desirable. <199 optimal. VlDL 5 - 40. HgbA1C <7%. BMI <25 Patient has diagnosis of Hyperlipidemia (ICD E78)?: Yes - Visit Date of Assessment:: 09/04/21 Session #:: 23 - Cholesterol/Lipids Determine presence & major risk factors that modify LDL goal: Hypertension or hypertensive medication, Low HDL cholesterol <40 mg/dL*, Family history of premature CHD in Male < 55 years: female <65 yearsFa, Age men > 45 years; women >/= 55 years Outcomes/Goals: Pt IDs own risk factors & lifestyle modifications by Session 10, Verbalizes symptoms of angina & response by session 3., Pt independently manages, Other Additional Outcomes/Goals: Intervention/Plan: Advocate for lipid panel cholesterol medication if applicable, Instruct on personal lipid levels & lipid goals/NCEP guidelines, Instruct on cholesterol, Other additional plan/int Referral to dietitian:: Yes - medical nutrition therapy 30-day Reassessments:: Progressing - Diabetes (Other Core Measures) Diabetes Type: Not Applicable - Weight Mgt (Other Care) Height: 5 ft 11 in Weight:: 79.379 kg BMI: 24.4 Outcomes/Goals: Pt sets, maintains & shows weight loss goal & trend during rehab, Other additional outcomes/goals Intervention/Plan: Instruct on ideal BMI & set weight loss goal w/patient, Assist pt to ID & incorporate diet changes for weight loss by S9, Refer to Structured Weight Loss program as appropriate, Encourage goal of using 250- 300dcal per session for weight loss, Other additional plan/interventions 30 day Reassessments:: Progressing - Healthy Eating Habits Will attend diet classes:: Yes Outcomes/Goals:: Consume diet rich in vegs,fruits,whole grain/high fiber,fish,lean meat, Limit sat/trans fats,cholesterol & added salts & sugars, Other additional outcome/goals: Intervention/Plan:: Assess current eating habits, Other Additional plan/interventions 30-day Reassessments:: Progressing - Education Gave educational materials for:: Signs & symptoms of hypoglycemia, Signs & symptoms of hyperglycemia, Relate diabetes to coronary artery disease, Healthy eating Nutrition - 90-Day Assessment Nutrition - Final Assessment Medical - Initial Assessment Medical- 30-Day Assessment Medical- 60-Day Assessment - Visit Date of Eval: 09/04/21 Session #:: 23 - Medication Compliance Preventative Medication(s):: Aspirin, Statin/lipid, Beta jack H/O mental health issues: depression, anxiety, or addiction?: No Doesn?t believe in the benefits of treatment?: No Believes medications are unnecessary or harmful?: No Has a concern about medication side effects?: No Expresses concern over the cost of medications?: No Outcomes/Goals: Verbalizes medications,desired effect & common side effects @ DC, Pt self-reports following medication regimen, Keeps card in wallet w/medications listed by DC, Other additional outcome/goals: Interventions/plans: Instruct on medication effects & side effects, Review medication list w/patient every two weeks, Instruct importance of taking meds as ordered & assist problem solving, Other additional 30-day Reassessments:: Progressing - Tobacco Use Tobacco Use: Non-smoker 30-day Reassessments:: Progressing - Hypertension Hypertension Diagnosis:: Hypertension ICD-10 I10 Resting Blood Pressure:: 112/68 [place] [employer] Hypertension Guidelines: [place] [employer] Hypertension Guidelines. Normal BP Less than 120/80. Elevated BP 120/80. Hypertension Stage 1: BP 130-139/80-89. Hypertesnion Stage 2: BP 140 or higher/90 or higher. Hypertension Crisis: BP higher than 180/120 Peak Exercise Blood Pressure:: 138/78 Outcomes/Goals: Able to verbalize/achieve optimal blood pressure <130/80, Incorporates diet changes & exercise for blood pressure control by DC, Other additional outcomes/goals Interventions/plan: Instruct on optimal blood pressure, hypertension & medications, Instruct on effects of sodium, alcohol, stress, exercise &hypertension, Other additional plan/interventions 30 day Reassessments:: Progressing - Tobacco Cessation Referral Smoking Cessation Referral:: No Individual Education/Counseling:: No Education Schedule Given:: Yes Medical- 90-Day Assessment Medical - Final Assessment Psychosocial - Initial Assess Psychosocial - 30-Day Assess Psychosocial - 60-Day Assess - VIsit Date of Eval: 09/04/21 Session #:: 23 Not Applicable: No - Outcomes/Goals: See list Psychosocial Outcomes/Goals:: ID's personal stressors & 2 strategies to manage stress by discharge, Other Additional outcome/goals: - Intervention/Plan: See List Interventions/Plan:: Assess stressors,coping strategies & signs of derpression on admission, Instruct/assist pt to develop coping & personal stress Mgt strategies, Refer to Behavioral Health if appropriate, Refer to Physician if appropriate, Instruct patient to recognize signs & symptoms of depression, Instruct patient to recog, Other additional plan/intervention - 30-day Reassessments: 30 day Reassessments:: Progressing Psychosocial - 90-Day Assess Psychosocial - Final Assessmen Patient Health Questionnaire 60-Day Re-eval Assessment 1. Little interest or pleasure in doing things: Several days 2. Feeling down, depressed, or hopeless: Several days 3. Trouble falling or staying asleep, or sleeping too much: Nearly every day 4. Feeling tired or having little energy: More than half the days 5. Poor appetite or overeating: Not at all 6. Feeling bad about yourself -- or that you are a failure or have let yourself or your family down: Several days 7. Trouble concentrating on things, such as reading the newspaper or watching television: More than half the days 8. Moving or speaking so slowly that other people could have noticed. Or the opposite - being so fidgety or restless that you have been moving around a lot more than usual: Not at all 9. Thoughts that you would be better off , or of hurting yourself in some way: Several days How difficult have these problems made it for you to do your work, take care of things at home, or get along with other people?: Very difficult Total Score: 11 Self-Efficacy 60-Day Re-eval Assessment We would like to know how confident you are in doing certain activities. Please select your confidence level for:: Select your confidence level for the following using the scale 1-10 where 1 is not at all confident and 10 is totally confident. Your score is the average of all 6 responses. Fatigue: How confident are you that you can keep the fatigue caused by your disease from interfering with the things you want to do? Select Number: 6 Physical Discomfort or Pain: How confident are you that you can keep the physical discomfort or pain of your disease from interfering with the things you want to do? Select Number: 5 Emotional Distress: How confident are you that you can keep the emotional distress caused by your disease from interfering with the things you want to do? Select Number: 4 Other Symptoms or Health Problems: How confident are you that you can keep other symptoms or health problems from interfering with the things you want to do? Select Number: 4 Different Tasks and Activities: How confident are you that you can do the different tasks and activities needed to manage your health condition so as to reduce your need to see a doctor? Select Number: 5 Medication: How confident are you that you can do things other than just taking medication to reduce how much your illness affects your everyday life? Select Number: 4 Total Score:: 4 Nutrition Survey
[2021-09-04 10:29] VITALS: BP 112/68; BP 138/78; BMI 24.4
== END 2021-09-28 23:59 ==
LOC: CR 08:00
PROVIDERS: PCP Family Medicine Geriatric Medicine; Referring Provider Internal Medicine Cardiovascular Disease; Visit Provider Internal Medicine Cardiovascular Disease
DX: Z95.1 Presence of aortocoronary bypass graft (principal)
CPT/HCPCS: 93798

== ENCOUNTER 2021-09-18 14:37 | Outpatient (CLI) | payer MEDICARE, SELFPAY ==
[2021-09-04 10:29] VITALS: BMI 24.4
[2021-09-18 16:40] LABS: Absolute Lymphocyte Count 0.61 X10^3/uL (0.83-4.51); Absolute Neutrophil Count 10.2 X10^3/uL (2.0-7.7); Basophil# 0.03 X10^3/uL; Basophil% 0.3 % (0-1); Eosinophil# 0.02 X10^3/uL; Eosinophils% 0.2 % (0-5); Lymphocyte # 0.61 X10^3/ul (0.83-4.51); Lymphocyte % 5.3 % (19-41); Mean Corp Hgb Conc 33.3 g/dL (32-36); Mean Corpuscular Hgb 30.6 pg (27.0-32.0); Mean Corpuscular Volume 91.8 fL (80-94); Mean Platelet Vol. 9.8 fl (6.2-12.0); Monocyte# 0.55 X10^3/uL; Monocyte% 4.8 % (0-10); NRBC Flagged by Analyzer 0 % (0-5); Neutrophil # 10.18 X10^3/uL (2.7-7.7); Neutrophil % 87.8 % (47-70); Platelet Count 236 K/mm3 (150-450); RBC Distribution Width CV 14.3 % (11.6-14.6); RBC Distribution Width SD 48.2 fl (35.1-43.9); White Blood Count 11.6 K/mm3 (4.4-11.0)
[2021-09-18 16:46] LABS: Vitamin D,25 Hydroxy 38.1 ng/mL
[2021-09-18 16:55] LABS: ALB/GLOB Ratio 0.9 RATIO (0.9-2.4); AST(SGOT) 11 U/L (15-37); Alanine Aminotransfer ALT/SGPT 28 U/L (16-61); Alkaline Phosphatase 70 U/L (45-117); Anion Gap 9 (5-15); BUN 42 mg/dL (7-18); BUN/Creat Ratio 26.1 RATIO (10-20); Calcium,Total 8.4 mg/dL (8.5-10.1); Chloride 107 mmol/L (98-107); Creatinine, Serum 1.61 mg/dL (0.70-1.30); EST Glomerular Filtration Rate 44 mL/min (>60); Est Glom Filt Rate - Afr Amer 54 mL/min (>60); Globulin 3.4 g/dL (2.2-4.2); Glucose 131 mg/dL (74-106); Potassium 4.3 mmol/L (3.5-5.1); Protein, Total 6.4 g/dL (6.4-8.2); Sodium Level 140 mmol/L (136-145); Thyroid Stim Hormone (TSH) 0.41 uIU/mL (0.358-3.74)
== END 2021-09-18 23:59 | disposition home or self-care (01) ==
LOC: POLAB3 14:38
PROVIDERS: PCP Family Medicine Geriatric Medicine; Visit Provider Family Medicine Geriatric Medicine
DX: I10 Essential (primary) hypertension (principal); E55.9 Vitamin D deficiency, unspecified; N39.0 Urinary tract infection, site not specified
CPT/HCPCS: 36415; 80053; 82306; 84443; 85025; 87077; 87086; 87088; 87186

== ENCOUNTER → 2021-10-02 | Outpatient (CLI) | payer MEDICARE, SELFPAY ==
[2021-09-04 10:29] VITALS: BMI 24.4
--- NOTE | 2021-10-02 08:38 | ART_ITS ---
Reason For Study: Claudication Procedure A bilateral lower extremity continuous wave Doppler with analog waveform analysis,segmental pressures,and ankle brachial indexes without exercise. Left Segmental Pressures Left brachial= 84mmHg. Left posterior tibial artery = 90mmHg. Left dorsalis pedis artery = 94mmHg. Left digit = 59 mmHg. The left dorsalis pedis waveforms are triphasic. The left posterior tibial artery waveforms are triphasic. Right Segmental Pressures Right brachial= 84mmHg. Right posterior tibial artery = >254mmHg. Right dorsalis pedis artery = 106mmHg. Right digit = 79 mmHg. The right dorsalis pedis waveforms are triphasic. The right posterior tibial artery waveforms are triphasic. Indices The right ankle brachial index by the dorsalis pedis is 1.26. The right ankle brachial index by the posterior tibial artery is NC. The right digital-brachial index is 0.94. The left ankle brachial index by the dorsalis pedis is 1.12. The left ankle brachial index by the posterior tibial artery is 1.07. The left digital-brachial index is 0.70. . Manual Brachial BP, Rt: 82/60, Lt:84/62. Preliminary report called to Mary [facility]. VL/Lower Ext Art Exam w/o Exercis Interpretation Summary Bilateral triphasic flow noted with an RAVIN 1.26 and 1.12. Ordering Physician: Rina Olivier Referring Physician: Jose Hooks Chi Performed By: Oneida Mcallister RVT
== END | disposition home or self-care (01) ==
PROVIDERS: PCP Family Medicine Geriatric Medicine; Referring Provider Physician Assistant Medical; Visit Provider Physician Assistant Medical
DX: R09.89 Other specified symptoms and signs involving the circulatory and respiratory systems (principal)
CPT/HCPCS: 93923

== ENCOUNTER → 2021-10-07 | Outpatient (CLI) | payer MEDICARE, SELFPAY ==
[2021-09-04 10:29] VITALS: BMI 24.4
--- NOTE | 2021-10-07 06:39 | MRI_ITS ---
EXAM: MR LUMBAR SPINE WITHOUT INTRAVENOUS CONTRAST CLINICAL INDICATION: WEAKNESS TECHNIQUE: Multiplanar and multisequence MR images of the lumbar spine without intravenous contrast. This report was created using [employer] report generation technology. COMPARISON: December 12, 2019 FINDINGS: VERTEBRAE: Interpedicular screw fixation at L4, L5 and S1 again seen. No change in the superior endplate deformity of the L1 vertebral body. Vertebral body heights are preserved. Normal alignment. No spondylolisthesis. There is preservation of the normal lumbar lordosis. SPINAL CORD: Unremarkable. Normal position and signal intensity of the conus medullaris. SOFT TISSUES: Unremarkable. DISCS/SPINAL CANAL/NEURAL FORAMINA: L1-L2: Annular fissure again noted at the L1-2 level without significant disc bulging. Normal spinal canal and lateral recesses. Normal neuroforamina. L2-L3: Mild disc bulging of L2 on L3 and posterior ligamentous redundancy results in minor impression on the thecal sac. L3-L4: Stable mild narrowing at the L3-4 level related to disc bulging and posterior ligamentous redundancy. Normal spinal canal and lateral recesses. Normal neuroforamina. L4-L5: Posterior laminectomy. Disc bulging and posterior ligamentous redundancy results in mild narrowing of the spinal canal. Neural foramina are obscured by artifacts. L5-S1: Posterior laminectomy. No disc protrusion normal caliber spinal canal. Neural foramina not well seen due to artifacts. MRI/Spine Lumbar (Routine) IMPRESSION: Stable postoperative and degenerative changes. No significant spinal or neural foraminal stenosis. Electronically Signed: Jose Martin MD at 15:16 EDT ,
== END | disposition home or self-care (01) ==
LOC: MRI 06:27
PROVIDERS: PCP Family Medicine Geriatric Medicine; Visit Provider Family Medicine Geriatric Medicine
DX: R53.1 Weakness (principal)
CPT/HCPCS: 72148

== ENCOUNTER → 2021-10-10 | Outpatient (CLI) | payer MEDICARE, SELFPAY ==
[2021-09-04 10:29] VITALS: BMI 24.4
[2021-10-10 12:16] LABS: Hematocrit 41.5 % (40-54); Hemoglobin 13.9 g/dL (13.0-16.5); Mean Corp Hgb Conc 33.5 g/dL (32-36); Mean Corpuscular Hgb 30.5 pg (27.0-32.0); Mean Corpuscular Volume 91.2 fL (80-94); Mean Platelet Vol. 9.3 fl (6.2-12.0); Platelet Count 364 K/mm3 (150-450); RBC Distribution Width CV 14.2 % (11.6-14.6); Red Blood Count 4.55 M/mm3 (4.6-6.2); White Blood Count 6.8 K/mm3 (4.4-11.0)
[2021-10-10 12:31] LABS: Albumin, Serum 2.7 g/dL (3.2-5.0); BUN 30 mg/dL (7-18); BUN/Creat Ratio 20.3 RATIO (10-20); Calcium,Total 9.5 mg/dL (8.5-10.1); Chloride 108 mmol/L (98-107); Creatinine, Serum 1.48 mg/dL (0.70-1.30); EST Glomerular Filtration Rate 49 mL/min (>60); Est Glom Filt Rate - Afr Amer 59 mL/min (>60); Glucose 107 mg/dL (74-106); Phosphorus 3.2 mg/dL (2.5-4.9); Potassium 4.1 mmol/L (3.5-5.1); Sodium Level 142 mmol/L (136-145)
== END | disposition home or self-care (01) ==
PROVIDERS: PCP Family Medicine Geriatric Medicine; Visit Provider Internal Medicine Nephrology
DX: N17.9 Acute kidney failure, unspecified (principal)
CPT/HCPCS: 36415; 80069; 85027

== ENCOUNTER → 2021-10-15 | Outpatient (CLI) | payer MEDICARE, SELFPAY ==
[2021-09-04 10:29] VITALS: BMI 24.4
[2021-10-17 15:09] LABS: Anti-Centromere B Ab <0.2 AI (0.0-0.9); Anti-Chromatin <0.2 AI (0.0-0.9); Anti-Jo <0.2 AI (0.0-0.9); Anti-Scleroderma-70 AB 0.2 AI (0.0-0.9); RNP Ab 0.2 AI (0.0-0.9); SJOGREN'S Anti-SS-A test < 0.2 AI (0.0-0.9); SJOGREN'S Anti-SS-B test < 0.2 AI (0.0-0.9); Smith Ab <0.2 AI (0.0-0.9)
[2021-10-17 17:36] LABS: Anti-dsDNA Ab 5 IU/mL (0-9)
[2021-10-18 02:07] LABS: Dilute Prothrombin Time (dPT) 50.5 sec (0.0-47.6); Dilute Russell Viper Venom 59.3 sec (0.0-47.0); PTT-LA 38.2 sec (0.0-51.9); Thrombin Time 18.6 sec (0.0-23.0)
[2021-10-18 11:20] LABS: Interpretation Comment: (.)
== END | disposition home or self-care (01) ==
PROVIDERS: PCP Family Medicine Geriatric Medicine; Visit Provider Family Medicine Geriatric Medicine
DX: M06.9 Rheumatoid arthritis, unspecified (principal); M32.9 Systemic lupus erythematosus, unspecified
CPT/HCPCS: 36415; 86225; 86235

== ENCOUNTER → 2021-10-16 | Outpatient (CLI) | payer MEDICARE, SELFPAY ==
[2021-09-04 10:29] VITALS: BMI 24.4
--- NOTE | 2021-10-16 14:08 | US_ITS ---
STUDY: RENAL ULTRASOUND - COMPLETE REASON FOR EXAM: Male, 81 years old. CKD TECHNIQUE: Ultrasound evaluation of the kidneys was performed with real-time and static limon-scale imaging. COMPARISON: Comparison is made with prior study dated 02/18/2017. FINDINGS: RIGHT KIDNEY: with mild renal atrophy. The right kidney measures 8 cm x 5.1 cm x 4.7 cm. There is a normal cortex of the right kidney. The renal cortex measures 1.2 cm. There is no right renal mass or cyst. There are no right renal calculi. There is no right hydronephrosis. DISTAL RIGHT URETER: There is non-visualization of the distal right ureter. There is no demonstrated right ureterovesical junction calculus. There is no demonstrated right ureteral jet. LEFT KIDNEY: Normal location of the left kidney, which is normal in size. The left kidney measures 12 cm x 5.4 cm x 6.6 cm. There is a normal cortex of the left kidney. The renal cortex measures 1.5 cm. There is no left renal mass or cyst. There are no left renal calculi. There is no left hydronephrosis. DISTAL LEFT URETER: There is non-visualization of the distal left ureter. There is no demonstrated left ureterovesical junction calculus. There is no demonstrated left ureteral jet. BLADDER: The urinary bladder is not adequately distended for assessment. US/Kidney and Bladder IMPRESSION: Right renal atrophy. Electronically Signed: Charanjit Smith MD at 15:12 EDT ,
== END | disposition home or self-care (01) ==
LOC: US 14:06
PROVIDERS: PCP Family Medicine Geriatric Medicine; Referring Provider Internal Medicine Nephrology; Visit Provider Internal Medicine Nephrology
DX: N17.9 Acute kidney failure, unspecified (principal)
CPT/HCPCS: 76770

== ENCOUNTER → 2021-11-14 | Outpatient (CLI) | payer MEDICARE, SELFPAY ==
[2021-09-04 10:29] VITALS: BMI 24.4
--- NOTE | 2021-11-14 12:19 | MRI_ITS ---
STUDY: MRI BRAIN WITHOUT CONTRAST REASON FOR EXAM: Male, 81 years old. WEAKNESS TECHNIQUE: Standardized multiplanar fat and water weighted pulse sequences were obtained. COMPARISON: None. FINDINGS: There is moderate cerebral atrophy with widening of the extra-axial spaces and ventricular dilatation. There are multiple white matter hyperintensities, distributed throughout the deep white matter tracts of the cerebral hemispheres, consistent with moderate chronic white matter ischemic changes. There is no evidence for recent intracranial ischemia or other cause of cytotoxic edema on diffusion weighted imaging (DWI). Normal T2* images of the brain without demonstrated susceptibility artifact. There is no demonstrated hemosiderin stain. Normal bilateral basal ganglia. Normal thalami. There is no extra-axial fluid accumulation. Normal flow voids within the major intracranial circulation suggesting patency by spin echo criteria. Normal sella turcica, pituitary gland, infundibular stalk, optic chiasm and hypothalamus. Normal tectal plate and pineal gland. Normal midbrain, laura and medulla. Normal cerebellum. Normal basal cisterns. Normal bilateral temporal bones. Normal bilateral internal auditory canals. There are bilateral ocular lens implants with otherwise normal intraorbital contents. Normal visualized paranasal sinuses. Normal calvarium and skull base. Normal visualized soft tissue structures. Normal visualized upper cervical spine. MRI/Brain without Contrast IMPRESSION: Involutional changes of the brain, as described above. No acute infarct. Electronically Signed: Jose Cox MD at 14:19 EDT ,
--- NOTE | 2021-11-14 12:56 | MRI_ITS ---
STUDY: MRI CERVICAL SPINE WITHOUT CONTRAST REASON FOR EXAM: Male, 81 years old. SPINAL STENOSIS TECHNIQUE: Standardized fat and water weighted pulse sequences were obtained in the sagittal and axial planes. COMPARISON: None FINDINGS: Normal foramen magnum and brainstem-cervical cord junction. Normal craniovertebral junction. Normal anterior atlantoaxial articulation. Normal odontoid process. Normal cervical lordosis. Normal vertebral bodies and posterior osseous elements. C2-3: Normal endplates. Normal disc height, signal and morphology. Normal central canal and intervertebral neural foramina. C3-4: Normal endplates. Normal disc height, signal and morphology. Normal central canal and intervertebral neural foramina. C4-5: Mild bilobed disc osteophyte complex produces mild spinal stenosis with abutment of the left hemicord and mild bilateral neural foraminal stenosis. C5-6: Mild broad disc osteophyte complex asymmetric to the right resolved spinal stenosis and mild right neural foraminal stenosis. C6-7: Mild bilateral disc osteophyte complex and bilateral degenerative hypertrophy produce mild spinal stenosis and mild bilateral neural foraminal stenosis. C7-T1: Normal endplates. Normal disc height, signal and morphology. Normal central canal and intervertebral neural foramina. Normal cervical cord. Normal visualized soft tissue structures. MRI/Spine Cervical (Routine) IMPRESSION: Multilevel degenerative changes, as described above. Electronically Signed: Jose Cox MD at 14:22 EDT ,
== END | disposition home or self-care (01) ==
LOC: MRI 12:04
PROVIDERS: PCP Family Medicine Geriatric Medicine; Visit Provider Family Medicine Geriatric Medicine
DX: M48.02 Spinal stenosis, cervical region (principal); R53.1 Weakness
CPT/HCPCS: 70551; 72141

== ENCOUNTER → 2021-12-05 | Outpatient (CLI) | payer MEDICARE, SELFPAY ==
[2021-09-04 10:29] VITALS: BMI 24.4
[2021-12-05 09:24] LABS: Albumin, Serum 2.9 g/dL (3.2-5.0); BUN 18 mg/dL (7-18); BUN/Creat Ratio 16.5 RATIO (10-20); Calcium,Total 8.5 mg/dL (8.5-10.1); Chloride 112 mmol/L (98-107); Creatinine, Serum 1.09 mg/dL (0.70-1.30); EST Glomerular Filtration Rate 69 mL/min (>60); Est Glom Filt Rate - Afr Amer 84 mL/min (>60); Glucose 87 mg/dL (74-106); Phosphorus 2.4 mg/dL (2.5-4.9); Potassium 3.7 mmol/L (3.5-5.1); Sodium Level 141 mmol/L (136-145)
== END | disposition home or self-care (01) ==
LOC: LAB 08:10
PROVIDERS: PCP Family Medicine Geriatric Medicine; Visit Provider Internal Medicine Nephrology
DX: N18.32 Chronic kidney disease, stage 3b (principal)
CPT/HCPCS: 36415; 80069

== ENCOUNTER → 2021-12-19 | Outpatient (CLI) | payer MEDICARE, SELFPAY ==
[2021-09-04 10:29] VITALS: BMI 24.4
[2021-12-19 12:33] LABS: Absolute Lymphocyte Count 1.37 X10^3/uL (0.83-4.51); Absolute Neutrophil Count 4.1 X10^3/uL (2.0-7.7); Basophil# 0.05 X10^3/uL; Basophil% 0.8 % (0-1); Eosinophil# 0.14 X10^3/uL; Eosinophils% 2.2 % (0-5); Hematocrit 41.3 % (40-54); Hemoglobin 13.5 g/dL (13.0-16.5); Lymphocyte # 1.37 X10^3/ul (0.83-4.51); Lymphocyte % 21.2 % (19-41); Mean Corp Hgb Conc 32.7 g/dL (32-36); Mean Corpuscular Hgb 31.5 pg (27.0-32.0); Mean Corpuscular Volume 96.5 fL (80-94); Mean Platelet Vol. 9.6 fl (6.2-12.0); Monocyte# 0.78 X10^3/uL; Monocyte% 12.1 % (0-10); NRBC Flagged by Analyzer 0 % (0-5); Neutrophil # 4.08 X10^3/uL (2.7-7.7); Neutrophil % 63.2 % (47-70); Platelet Count 334 K/mm3 (150-450); RBC Distribution Width CV 13.1 % (11.6-14.6); RBC Distribution Width SD 45.8 fl (35.1-43.9); Red Blood Count 4.28 M/mm3 (4.6-6.2); White Blood Count 6.5 K/mm3 (4.4-11.0)
[2021-12-19 12:48] LABS: Vitamin D,25 Hydroxy 40.9 ng/mL
[2021-12-19 13:15] LABS: ALB/GLOB Ratio 0.9 RATIO (0.9-2.4); AST(SGOT) 20 U/L (15-37); Alanine Aminotransfer ALT/SGPT 17 U/L (16-61); Albumin, Serum 3.1 g/dL (3.2-5.0); Alkaline Phosphatase 56 U/L (45-117); Anion Gap 6 (5-15); BUN 20 mg/dL (7-18); BUN/Creat Ratio 15.6 RATIO (10-20); Calcium,Total 8.9 mg/dL (8.5-10.1); Chloride 112 mmol/L (98-107); Creatinine, Serum 1.28 mg/dL (0.70-1.30); EST Glomerular Filtration Rate 58 mL/min (>60); Est Glom Filt Rate - Afr Amer 70 mL/min (>60); Globulin 3.5 g/dL (2.2-4.2); Glucose 96 mg/dL (74-106); Potassium 4.3 mmol/L (3.5-5.1); Protein, Total 6.6 g/dL (6.4-8.2); Sodium Level 143 mmol/L (136-145); Thyroid Stim Hormone (TSH) 1.72 uIU/mL (0.358-3.74)
== END | disposition home or self-care (01) ==
LOC: POLAB3 10:33
PROVIDERS: PCP Family Medicine Geriatric Medicine; Visit Provider Family Medicine Geriatric Medicine
DX: I10 Essential (primary) hypertension (principal); E55.9 Vitamin D deficiency, unspecified
CPT/HCPCS: 36415; 80053; 82306; 84443; 85025

== ENCOUNTER → 2022-01-13 | Outpatient (CLI) | payer MEDICARE, SELFPAY ==
[2021-09-04 10:29] VITALS: BMI 24.4
--- NOTE | 2022-01-13 13:13 | NEURO ---
NCS and/or EMG Patient Report Ordering Doctor: Jose Hooks Chi DATE OF SERVICE: 01/13/22 Indication: Bilateral lower extremity weakness in the setting of low back and bilateral hip pain. History of lumbar radiculopathy status post surgery. Findings: Nerve conduction studies were performed in the right and left lower extremity. The right peroneal motor study recording the extensor digitorum brevis showed a borderline amplitude, normal distal latency and borderline conduction velocity. No conduction block or focal slowing was present across the fibular neck. The right peroneal motor study recording the tibialis anterior showed a normal amplitude, normal distal latency and normal conduction velocity. No conduction block or focal slowing was present across the fibular neck.The right tibial motor study recording the abductor hallucis brevis showed a normal amplitude, normal distal latency and normal conduction velocity. The right sural sensory response was absent. The right superficial peroneal sensory response was absent. The left peroneal motor study recording the extensor digitorum brevis showed a normal amplitude, normal distal latency and normal conduction velocity. No conduction block or focal slowing was present across the fibular neck. The left tibial motor study recording the abductor hallucis brevis showed a normal amplitude, normal distal latency and normal conduction velocity. The left sural sensory response was absent. The left superficial peroneal sensory response was absent. Needle EMG of the left lower extremity muscles was performed. The lumbar paraspinal muscles were not sampled due to the patients prior history of low back surgery. No denervation was present in any muscle. All motor unit morphology, activation and recruitment patterns were normal. Impression: This is an abnormal, but indeterminant study. The absent sensory responses in the bilateral lower extremities are not uncommon in the octogenarian population (normal values only exist to age 60). However, a mild sensory polyneuropathy cannot be entirely excluded by this study. There is no electrophysiologic evidence of active lumbosacral radiculopathy, plexopathy, or myopathy in the left lower extremity. Ke Cho D.O. Multi Select Codes Neurology Neurology Interp Codes: 74200-96 Musc test done w/n test comp (interp) and 73596-99 Nrv cndj test 9-10 studies (interp)
== END | disposition home or self-care (01) ==
LOC: PSN 11:09
PROVIDERS: PCP Family Medicine Geriatric Medicine; Visit Provider Family Medicine Geriatric Medicine
DX: R53.1 Weakness (principal)
CPT/HCPCS: 95886; 95911

== ENCOUNTER → 2022-01-22 | Outpatient (CLI) | payer MEDICARE, SELFPAY ==
[2021-09-04 10:29] VITALS: BMI 24.4
== END | disposition home or self-care (01) ==
LOC: POLAB3 15:13 → LABSPEC 15:15
PROVIDERS: PCP Family Medicine Geriatric Medicine; Visit Provider Family Medicine Geriatric Medicine
DX: N39.0 Urinary tract infection, site not specified (principal)
CPT/HCPCS: 87086

== ENCOUNTER → 2022-03-18 | Outpatient (CLI) | payer MEDICARE, SELFPAY ==
[2021-09-04 10:29] VITALS: BMI 24.4
--- NOTE | 2022-03-18 14:27 | VDLE_ITS ---
Reason For Study: LEG SWELLING RIGHT LEFT GSV is normal. GSV is normal. CFV is compressible, spontaneous, phasic, CFV is compressible, spontaneous, phasic, competent and demonstrates normal competent, and demonstrates normal augmentation. augmentation. FV is compressible, spontaneous, phasic, FV is compressible, spontaneous, phasic, competent and demonstrates normal competent and demonstrates normal augmentation. augmentation. POP V is compressible, spontaneous, phasic, POP V is compressible, spontaneous, phasic, competent and demonstrates normal competent and demonstrates normal augmentation. augmentation. T/P Trunk is compressible. T/P Trunk is compressible. PTV is compressible. PTV is compressible. RT PerV is compressible. LT PerV is compressible. Procedure There is a non-vascularized hypoechoic area This is a venous duplex using B-mode, color in the left popliteal space measuring 4.45cm flow and spectral Doppler. x 1.56cm. Exam performed in department. The exam was diagnostic. A preliminary report was called and/or faxed to Rina Olivier's office. VL/Venous Duplex US - Nikita Extrem Interpretation Summary No evidence for acute deep venous thrombosis bilateral lower extremities with p atent and compressible bilateral great saphenous veins. 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 Clinic al correlation would be appropriate Ordering Physician: Rina Olivier Referring Physician: Jose Hooks Chi Performed By: Manuel Christianson RVBucky
[2022-03-18 15:41] LABS: Anion Gap 4 (5-15); BNP,B-Type NATRIURETIC PEPTIDE 224.4 pg/mL (0-100); BUN 26 mg/dL (7-18); BUN/Creat Ratio 21.1 RATIO (10-20); Chloride 110 mmol/L (98-107); Creatinine, Serum 1.23 mg/dL (0.70-1.30); EST Glomerular Filtration Rate 60 mL/min (>60); Est Glom Filt Rate - Afr Amer 73 mL/min (>60); Glucose 100 mg/dL (74-106); Potassium 4.2 mmol/L (3.5-5.1); Sodium Level 143 mmol/L (136-145)
== END | disposition home or self-care (01) ==
PROVIDERS: PCP Family Medicine Geriatric Medicine; Referring Provider Physician Assistant Medical; Visit Provider Physician Assistant Medical
DX: R60.0 Localized edema (principal); R06.00 Dyspnea, unspecified; R09.89 Other specified symptoms and signs involving the circulatory and respiratory systems; M79.89 Other specified soft tissue disorders; Z95.1 Presence of aortocoronary bypass graft
CPT/HCPCS: 36415; 80048; 83880; 93970

== ENCOUNTER → 2022-04-04 | Outpatient (CLI) | payer MEDICARE, SELFPAY ==
[2021-09-04 10:29] VITALS: BMI 24.4
[2022-04-04 10:17] LABS: Anion Gap 7 (5-15); BUN 26 mg/dL (7-18); BUN/Creat Ratio 18.2 RATIO (10-20); Calcium,Total 9.1 mg/dL (8.5-10.1); Chloride 109 mmol/L (98-107); Creatinine, Serum 1.43 mg/dL (0.70-1.30); EST Glomerular Filtration Rate 51 mL/min (>60); Est Glom Filt Rate - Afr Amer 61 mL/min (>60); Glucose 96 mg/dL (74-106); Potassium 3.8 mmol/L (3.5-5.1); Sodium Level 143 mmol/L (136-145)
== END | disposition home or self-care (01) ==
LOC: LAB 08:27
PROVIDERS: PCP Family Medicine Geriatric Medicine; Referring Provider Physician Assistant Medical; Visit Provider Physician Assistant Medical
DX: R60.0 Localized edema (principal)
CPT/HCPCS: 36415; 80048

== ENCOUNTER → 2022-06-19 | Outpatient (CLI) | payer MEDICARE, SELFPAY ==
[2021-09-04 10:29] VITALS: BMI 24.4
[2022-06-19 13:19] LABS: Absolute Lymphocyte Count 1.23 X10^3/uL (0.83-4.51); Absolute Neutrophil Count 4.5 X10^3/uL (2.0-7.7); Basophil# 0.05 X10^3/uL; Basophil% 0.7 % (0-1); Eosinophil# 0.23 X10^3/uL; Eosinophils% 3.4 % (0-5); Hematocrit 45.2 % (40-54); Hemoglobin 15.2 g/dL (13.0-16.5); Lymphocyte # 1.23 X10^3/ul (0.83-4.51); Mean Corp Hgb Conc 33.6 g/dL (32-36); Mean Corpuscular Hgb 32.7 pg (27.0-32.0); Mean Corpuscular Volume 97.2 fL (80-94); Monocyte# 0.77 X10^3/uL; Monocyte% 11.3 % (0-10); NRBC Flagged by Analyzer 0 % (0-5); Neutrophil # 4.53 X10^3/uL (2.7-7.7); Neutrophil % 66.5 % (47-70); Platelet Count 311 K/mm3 (150-450); RBC Distribution Width CV 12.1 % (11.6-14.6); RBC Distribution Width SD 43.4 fl (35.1-43.9); Red Blood Count 4.65 M/mm3 (4.6-6.2); White Blood Count 6.8 K/mm3 (4.4-11.0)
[2022-06-19 13:32] LABS: Vitamin D,25 Hydroxy 68.6 ng/mL
[2022-06-19 13:43] LABS: ALB/GLOB Ratio 1.1 RATIO (0.9-2.4); AST(SGOT) 16 U/L (15-37); Alanine Aminotransfer ALT/SGPT 23 U/L (16-61); Albumin, Serum 3.4 g/dL (3.2-5.0); Alkaline Phosphatase 69 U/L (45-117); Anion Gap 3 (5-15); BUN 22 mg/dL (7-18); BUN/Creat Ratio 17.6 RATIO (10-20); Calcium,Total 8.8 mg/dL (8.5-10.1); Chloride 110 mmol/L (98-107); Creatinine, Serum 1.25 mg/dL (0.70-1.30); EST Glomerular Filtration Rate 59 mL/min (>60); Est Glom Filt Rate - Afr Amer 72 mL/min (>60); Globulin 3.2 g/dL (2.2-4.2); Glucose 82 mg/dL (74-106); Potassium 4.7 mmol/L (3.5-5.1); Protein, Total 6.6 g/dL (6.4-8.2); Sodium Level 143 mmol/L (136-145); Thyroid Stim Hormone (TSH) 3.95 uIU/mL (0.358-3.74)
== END | disposition home or self-care (01) ==
LOC: POLAB3 10:52
PROVIDERS: PCP Family Medicine Geriatric Medicine; Visit Provider Family Medicine Geriatric Medicine
DX: E55.9 Vitamin D deficiency, unspecified (principal); I10 Essential (primary) hypertension
CPT/HCPCS: 36415; 80053; 82306; 84443; 85025

== ENCOUNTER → 2022-07-09 | Outpatient (CLI) | payer MEDICARE, SELFPAY ==
[2021-09-04 10:29] VITALS: BMI 24.4
== END | disposition home or self-care (01) ==
LOC: POLAB3 16:10
PROVIDERS: PCP Family Medicine Geriatric Medicine; Visit Provider Family Medicine Geriatric Medicine
DX: N39.0 Urinary tract infection, site not specified (principal)
CPT/HCPCS: 87086

== ENCOUNTER → 2022-07-22 | Outpatient (CLI) | payer MEDICARE, SELFPAY ==
[2021-09-04 10:29] VITALS: BMI 24.4
== END | disposition home or self-care (01) ==
LOC: POLAB3 11:37
PROVIDERS: PCP Family Medicine Geriatric Medicine; Visit Provider Family Medicine Geriatric Medicine
DX: N39.0 Urinary tract infection, site not specified (principal)
CPT/HCPCS: 87086

== ENCOUNTER → 2022-07-22 | Outpatient (CLI) | payer MEDICARE, SELFPAY ==
[2021-09-04 10:29] VITALS: BMI 24.4
== END | disposition home or self-care (01) ==
PROVIDERS: PCP Family Medicine Geriatric Medicine; Visit Provider Family Medicine Geriatric Medicine
DX: R68.83 Chills (without fever) (principal); N39.0 Urinary tract infection, site not specified
CPT/HCPCS: 87086; 87635; C9803; U0003; U0005

== ENCOUNTER → 2022-08-04 | Outpatient (CLI) | payer MEDICARE, SELFPAY ==
[2021-09-04 10:29] VITALS: BMI 24.4
[2022-08-04 13:46] LABS: Thyroid Stim Hormone (TSH) 2.28 uIU/mL (0.358-3.74)
== END | disposition home or self-care (01) ==
LOC: POLAB3 10:59
PROVIDERS: PCP Family Medicine Geriatric Medicine; Visit Provider Family Medicine Geriatric Medicine
DX: E03.9 Hypothyroidism, unspecified (principal)
CPT/HCPCS: 36415; 84443

== ENCOUNTER → 2022-09-09 | Outpatient (CLI) | payer MEDICARE, SELFPAY ==
[2021-09-04 10:29] VITALS: BMI 24.4
[2022-09-09 11:31] LABS: BUN 20 mg/dL (7-18); BUN/Creat Ratio 14.4 RATIO (10-20); Calcium,Total 8.8 mg/dL (8.5-10.1); Chloride 111 mmol/L (98-107); Creatinine, Serum 1.39 mg/dL (0.70-1.30); EST Glomerular Filtration Rate 52 mL/min (>60); Est Glom Filt Rate - Afr Amer 63 mL/min (>60); Glucose 85 mg/dL (74-106); Phosphorus 2.4 mg/dL (2.5-4.9); Potassium 3.8 mmol/L (3.5-5.1); Sodium Level 144 mmol/L (136-145)
== END | disposition home or self-care (01) ==
LOC: LAB 09:58
PROVIDERS: PCP Family Medicine Geriatric Medicine; Referring Provider Internal Medicine Nephrology; Visit Provider Internal Medicine Nephrology
DX: N18.32 Chronic kidney disease, stage 3b (principal)
CPT/HCPCS: 36415; 80069

== ENCOUNTER 2022-10-29 14:30 | Outpatient (RCR) | payer MEDICARE, SELFPAY ==
[2021-09-04 10:29] VITALS: BMI 24.4
--- NOTE | 2022-10-17 13:43 | HP.PTEVAL ---
Patient's Visit Information KULWANT ANDRADE is a 82 year old M referred to Physical Therapy by Dr. Jose Hooks MD with a diagnosis of LUMBAR DICS DISEASE. Date of Evaluation: 10/17/22 Physical Therapist: Harjit Schofield, PT, Cert MDT, OCS - Visit Plan Frequency: 2x /Week Duration: 4 Weeks Plan: PT INTERVETIONS DLS ,POSTURAL EX'S ,LE FLEXABLITY ,BLE STRENGTHENING ,AND FUNCTIONAL STRENGTHENING - Subjective This 82 y/o male presents to physical therapy with low back pain and weakness. Patient has had weakness ~ 3months which progressively worse. Seen DR did cortisone injections in hip. 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 Also ,patient had laminectomy lumbar L4-5,L5-S1 in 1999. Patient had MRI in lumbar and cervical last year showed some DDD . Patient also will be seeing a Neurologist. Aggravating factors walking and standing, affects housework tasks and ADLS due to weakness in legs. Patient has pain in buttocks and legs. C/O paresthesia/tingling in hips/leg. Alleviating factors rest /sitting. Bowel/bladder-. Coughing/sneezing -. Patient is able sleep good. Patient has no abnormal night pain. Patient goal is to get stronger. Patient symptoms affects QOL and function. SOCIAL: . VOCATION: retired - Pain Bilateral Lower Extremity Pain Intensity (Out of 10): 8 Pain Intensity Range: 10 - Objective POSTURE: mild forward posture hips/knees flexed. GAIT: reciprocal pattern mild forward posture slow ivory. NEURO: denies paresthesia/tingling ,reflexes L3-4,L4-5,L5-S-1/3. PALAPTION: unremarkable. SYMMETRIES: align. MMT: (peak force) quads right 20.3 ,left 12.7 ,hamstrings right 7.8 ,left 12.9 ,hip flexion left 10.8 ,right 16.9,ankle 4/5. FLEXABLITY: hamstrings mod tight. LUMBAR ROM: flexion mod loss ,extension severe loss ,side glides mod loss - Balance/Special Test Scores Oswestry Low Back Score: 29 - Goals Goal 1:: Patient to be I with HEP for back and legs. Goal Time Frame: 4-6 Weeks Goal 2:: Patient to demonstrate 50% improvement with decrease pain and improved function Goal Time Frame: 4-6 Weeks Goal 3:: Patient to improve lumbar ROM for function of recovery to improve ability to put on shoes Goal Time Frame: 4-6 Weeks Goal 4:: Patient to improve peak force of quads/hams /hip by 5-10 to improve function Goal Time Frame: 4-6 Weeks Goal 5:: Patient to improve lumbar back oswestry 5 points to improve QOL Goal Time Frame: 4-6 Weeks - Rehabilitation Potential Physical Therapy Diagnosis: Patient has lumbar pain with weakness and pain in legs ,deconditioned ,impairs gait ,decrease ROM thus benefit from skilled PT Rehabilitation Potential: Good - Anticipated Interventions Patient/Client Instruction: Educate patient on: Condition, Plan of Care For the Purpose of:: To decrease pain, To increase ROM, To improve muscle performance and motor function, To improve ability to perform ADL's, To increase tolerance to activity/condition/position, To improve ability of physical actions for home/community/work/leisure, To improve health of tissue, To decrease soft tissue restriction, To increase flexibility/ROM, To improve balance, To improve tolerance to ADL's Therapeutic Exercise to Include: Strength training, Endurance training, Balance training, Postural training, Flexibilty training, Dynamic Lumbar Stabilization For the Purpose of:: To decrease pain, To increase ROM, To improve muscle performance and motor function, To improve ability to perform ADL's, To increase tolerance to activity/condition/position, To improve ability of physical actions for home/community/work/leisure, To improve gait and locomotor functions, To decrease soft tissue restriction, To increase flexibility/ROM TENS: Yes IF ES: Yes Cryotherapy (ice pack, ice massage): Yes Ultrasound (thermal/non thermal): Yes For the Purpose of:: To decrease pain, To increase ROM, To improve health of tissue, To decrease soft tissue restriction Thank you for the opportunity to evaluate your patient. For Medicare and Medicare HMO plans, please review the plan of care and approve it. It will need to be FAXED BACK to us at [phone] for Medicare purposes. For Medicare only, by signing this I certify the plan of care. Please let me know if there are questions or concerns regarding this plan of care. Physician Signature: Date:
--- NOTE | 2023-01-28 15:31 | HP.PT.NRP ---
Patient Information Patient Information: KULWANT ANDRADE was seen in my office for initial evaluation on 10/17/22. The following Plan of Care was established for this patient: POC Established Initial Frequency: 2x /Week Initial Duration: 4 Weeks Anticipated Interventions Patient/Client Instruction: Educate patient on: Condition and Plan of Care For the Purpose of:: To decrease pain, To increase ROM, To improve muscle performance and motor function, To improve ability to perform ADL's, To increase tolerance to activity/condition/position, To improve ability of physical actions for home/community/work/leisure, To improve health of tissue, To decrease soft tissue restriction, To increase flexibility/ROM, To improve balance and To improve tolerance to ADL's Therapeutic Exercise to Include: Strength training, Endurance training, Balance training, Postural training, Flexibilty training and Dynamic Lumbar Stabilization For the Purpose of:: To decrease pain, To increase ROM, To improve muscle performance and motor function, To improve ability to perform ADL's, To increase tolerance to activity/condition/position, To improve ability of physical actions for home/community/work/leisure, To improve gait and locomotor functions, To decrease soft tissue restriction and To increase flexibility/ROM TENS: Yes IF ES: Yes Cryotherapy (ice pack, ice massage): Yes Ultrasound (thermal/non thermal): Yes For the Purpose of:: To decrease pain, To increase ROM, To improve health of tissue and To decrease soft tissue restriction Last Seen Last Seen: This patient was last seen in our office . Pertinent comments regarding their Physical therapy will appear below: Patient seen for PT evaluation for lumbar pain for DLS with apparent min change with pain thus d/c At this point I will be discontinuing this patient from physical therapy. I would be happy to see this patient again in the future if found appropriate by the physician. Thank you! Harjit Schofield, PT, Cert MDT, OCS Balance/Gait/Functional tests Balance/Special Test Scores Oswestry Low Back Score: 11
== END 2022-10-29 19:00 | disposition home or self-care (01) ==
LOC: PT 14:30
PROVIDERS: PCP Family Medicine Geriatric Medicine; Referring Provider Family Medicine Geriatric Medicine; Visit Provider Family Medicine Geriatric Medicine
DX: M51.9 Unspecified thoracic, thoracolumbar and lumbosacral intervertebral disc disorder (principal)
CPT/HCPCS: 97110; 97140; 97162

== ENCOUNTER → 2022-10-30 | Outpatient (CLI) | payer MEDICARE, SELFPAY ==
[2021-09-04 10:29] VITALS: BMI 24.4
--- NOTE | 2022-10-30 11:20 | RAD_ITS ---
STUDY: X-RAY CHEST REASON FOR EXAM: Male, 82 years old. Redness of breath both at rest and with exertion. TECHNIQUE: PA and lateral views of the chest. COMPARISON: Chest, November 22, 2020. CTA of the chest, November 26, 2020 FINDINGS: The lungs are well-expanded. There is resolution of the right upper lobe pneumonia seen on the previous study. No new infiltrate or mass. There is no demonstrated pleural abnormality. Sternal cerclage wires and vascular clips are present from a prior sternotomy and coronary artery bypass graft procedure (CABG). The heart is normal in size. Normal mediastinum and param. Normal visualized pulmonary arteries. Normal visualized aortic arch and descending thoracic aorta. Mild compression deformity of T7 unchanged from the CT of November 26, 2020 Normal visualized ribs, clavicles, and shoulders. There is no demonstrated abnormality of the visualized soft tissue structures of the upper abdomen. RAD/Chest PA and Lateral IMPRESSION: No acute cardiopulmonary disease. Electronically Signed: Urbano Raza DO at 21:40 EDT ,
[2022-10-30 12:03] LABS: Hemoglobin 15.4 g/dL (13.0-16.5); Mean Corp Hgb Conc 32.8 g/dL (32-36); Mean Corpuscular Hgb 31.5 pg (27.0-32.0); Mean Corpuscular Volume 96.1 fL (80-94); Mean Platelet Vol. 9.5 fl (6.2-12.0); Platelet Count 287 K/mm3 (150-450); RBC Distribution Width CV 12.6 % (11.6-14.6); RBC Distribution Width SD 45.2 fl (35.1-43.9); Red Blood Count 4.89 M/mm3 (4.6-6.2)
[2022-10-30 12:35] LABS: BNP,B-Type NATRIURETIC PEPTIDE 290.8 pg/mL (0-100)
[2022-10-30 12:45] LABS: AST(SGOT) 13 U/L (15-37); Alanine Aminotransfer ALT/SGPT 17 U/L (16-61); Albumin, Serum 3.1 g/dL (3.2-5.0); Alkaline Phosphatase 64 U/L (45-117); Anion Gap 5 (5-15); BUN 22 mg/dL (7-18); BUN/Creat Ratio 16.4 RATIO (10-20); Calcium,Total 8.9 mg/dL (8.5-10.1); Chloride 112 mmol/L (98-107); Creatinine, Serum 1.34 mg/dL (0.70-1.30); EST Glomerular Filtration Rate 55 mL/min (>60); Est Glom Filt Rate - Afr Amer 66 mL/min (>60); Globulin 3.2 g/dL (2.2-4.2); Glucose 75 mg/dL (74-106); Magnesium 2.6 mg/dL (1.6-2.6); Potassium 4.3 mmol/L (3.5-5.1); Protein, Total 6.3 g/dL (6.4-8.2); Sodium Level 145 mmol/L (136-145); T4 Total, Thyroxin 11.5 ug/dL (4.5-12.1)
== END | disposition home or self-care (01) ==
PROVIDERS: PCP Family Medicine Geriatric Medicine; Referring Provider Nurse Practitioner Gerontology; Visit Provider Nurse Practitioner Gerontology
DX: R06.02 Shortness of breath (principal); Z95.1 Presence of aortocoronary bypass graft; I25.10 Atherosclerotic heart disease of native coronary artery without angina pectoris; R63.0 Anorexia; R40.0 Somnolence; R53.83 Other fatigue
CPT/HCPCS: 36415; 71046; 80053; 83735; 83880; 84436; 84443; 85027

== ENCOUNTER → 2022-11-06 | Outpatient (CLI) | payer MEDICARE, SELFPAY ==
[2021-09-04 10:29] VITALS: BMI 24.4
[2022-11-06 09:26] LABS: BNP,B-Type NATRIURETIC PEPTIDE 59.8 pg/mL (0-100)
[2022-11-06 09:31] LABS: Anion Gap 6 (5-15); BUN 45 mg/dL (7-18); BUN/Creat Ratio 24.3 RATIO (10-20); Calcium,Total 9.5 mg/dL (8.5-10.1); Chloride 103 mmol/L (98-107); Creatinine, Serum 1.85 mg/dL (0.70-1.30); EST Glomerular Filtration Rate 38 mL/min (>60); Est Glom Filt Rate - Afr Amer 45 mL/min (>60); Glucose 115 mg/dL (74-106); Sodium Level 141 mmol/L (136-145)
[2022-11-06 09:38] LABS: ALB/GLOB Ratio 0.9 RATIO (0.9-2.4); AST(SGOT) 14 U/L (15-37); Alanine Aminotransfer ALT/SGPT 25 U/L (16-61); Albumin, Serum 3.4 g/dL (3.2-5.0); Alkaline Phosphatase 79 U/L (45-117); Anion Gap 8 (5-15); BUN 43 mg/dL (7-18); BUN/Creat Ratio 23.4 RATIO (10-20); Calcium,Total 9.1 mg/dL (8.5-10.1); Chloride 103 mmol/L (98-107); Cholesterol 242 mg/dL (200); Creatinine, Serum 1.84 mg/dL (0.70-1.30); EST Glomerular Filtration Rate 38 mL/min (>60); Est Glom Filt Rate - Afr Amer 46 mL/min (>60); Globulin 3.7 g/dL (2.2-4.2); Glucose 113 mg/dL (74-106); High Density Lipoprotein 37 mg/dL; Protein, Total 7.1 g/dL (6.4-8.2); Sodium Level 142 mmol/L (136-145); Triglycerides 247 mg/dL; Very Low Density Lipoprotein 49 mg/dL (5-40)
== END | disposition home or self-care (01) ==
LOC: LAB 08:48
PROVIDERS: Internal Medicine Cardiovascular Disease; PCP Family Medicine Geriatric Medicine; Referring Provider Nurse Practitioner Gerontology; Visit Provider Nurse Practitioner Gerontology
DX: R06.00 Dyspnea, unspecified (principal); I48.91 Unspecified atrial fibrillation; I25.10 Atherosclerotic heart disease of native coronary artery without angina pectoris; Z95.1 Presence of aortocoronary bypass graft; I97.89 Other postprocedural complications and disorders of the circulatory system, not elsewhere classified; E78.5 Hyperlipidemia, unspecified; I10 Essential (primary) hypertension; Z51.81 Encounter for therapeutic drug level monitoring; Z79.899 Other long term (current) drug therapy
CPT/HCPCS: 36415; 80048; 80053; 80061; 83880

== ENCOUNTER → 2022-11-11 | Outpatient (CLI) | payer MEDICARE, SELFPAY ==
[2021-09-04 10:29] VITALS: BMI 24.4
--- NOTE | 2022-11-11 06:40 | ECHOCS_ITS ---
Reason For Study: SOB Procedure This was a 2D Doppler, Color Flow transthoracic echocardiogram. The study was technically difficult. Contrast injection was performed. Exam performed in department. Left Ventricle Normal size and thickness. The left ventricular ejection fraction is 60 %. Normal diastology for age. Right Ventricle Normal right ventricle. Atria The left atrium is mildly enlarged. Normal right atrium. Mitral Valve Mild (1+) mitral valve insufficiency. Tricuspid Valve Mild tricuspid valve insufficiency. Normal pulmonary artery pressure. Aortic Valve Normal aortic valve. Pulmonic Valve Mild (1+) pulmonic valve insufficiency. Great Vessels Mildly dilated aortic root. Pericardium/Pleural No pericardial effusion. Medication 22 gauge I.V. with prn adaptor inserted into right arm. Diluted definity 4ml given slow IV push to enhance endocardial definition. MMode/2D Measurements & Calculations LVIDd: 4.7 cm IVSd: 0.81 cm Ao root diam: 3.7 cm LVIDs: 3.2 cm LVPWd: 0.74 cm LA dimension: 4.1 cm RVDd: 4.4 cm FS: 33.1 % LAV(MOD-bp): 50.2 ml LVAd ap4: 27.1 cm2 SV(MOD-sp4): 46.2 ml LAV(MOD-bp) Indexed: 25.5 ml/m2 LVLd ap4: 7.5 cm LAV(MOD-sp2): 52.1 ml EDV(MOD-sp4): 82.9 ml LAV(MOD-sp4): 44.8 ml EDV(sp4-el): 82.9 ml LVAs ap4: 17.3 cm2 LVLs ap4: 6.7 cm ESV(MOD-sp4): 36.7 ml ESV(sp4-el): 37.7 ml EF(MOD-sp4): 55.7 % EF(sp4-el): 54.5 % SV(sp4-el): 45.2 ml LA A4 area: 17.7 cm2 RA A4 area: 17.1 cm2 TAPSE: 1.4 cm Time Measurements MV dec time: 0.29 sec Doppler Measurements & Calculations MV E max orestes: 62.4 cm/sec Lat Peak E' Orestes: 15.2 cm/sec Med Peak E' Orestes: 7.2 cm/sec MV A max orestes: 91.3 cm/sec E/E' lat: 4.1 E/E' med: 8.7 MV E/A: 0.68 MV V2 max: 104.1 cm/sec MV P1/2t max orestes: 72.4 cm/sec Ao V2 max: 85.6 cm/sec MV max P.3 mmHg MV P1/2t: 91.5 msec Ao max P.9 mmHg MV V2 mean: 53.1 cm/sec Ao V2 mean: 61.1 cm/sec MV mean P.3 mmHg MV dec slope: 231.9 cm/sec2 Ao mean P.7 mmHg MV V2 VTI: 26.3 cm MVA(P1/2t): 2.4 cm2 Ao V2 VTI: 19.4 cm AV (velocity ratio): 0.93 LV V1 max: 76.3 cm/sec PA V2 max: 130.0 cm/sec TR max orestes: 245.4 cm/sec LV V1 max P.3 mmHg PA V2 mean: 75.1 cm/sec TR max P.1 mmHg LV V1 mean P.3 mmHg LV V1 mean: 54.7 cm/sec LV V1 VTI: 17.9 cm ECHO/Echo Complete W/ Contrast Interpretation Summary The left ventricular ejection fraction is 60 %. The left atrium is mildly enlarged. Mild (1+) mitral valve insufficiency. Mild tricuspid valve insufficiency. Mild (1+) pulmonic valve insufficiency. Mildly dilated aortic root. Ordering Physician: Melody Whitmore Referring Physician: Jose Hooks Chi Performed By: Jose Cortez RCS
--- NOTE | 2022-11-13 13:26 | STRESSREP ---
Stress Test Report Exercise myocardial perfusion stress test. 82-year-old male with a history of dyspnea on exertion status post coronary bypass surgery Stress protocol: Resting EKG demonstrates sinus rhythm with a rate of 62 bpm resting blood pressure is 118/74 mmHg. The patient exercised according to the regular Asad protocol for a total duration of 4 minutes and 15 seconds attaining a maximum heart rate of 176 bpm which was 125% of maximum predicted heart rate; the maximum workload was 7 metabolic equivalents. At rest there were no ST or T wave changes noted to suggest ischemia and at peak exercise upsloping ST changes only were noted which did not meet the criteria for ischemia. No clinical angina was noted the test was terminated due to the target heart rate being achieved/fatigue. The peak blood pressure was 164/104 mmHg. Rate-pressure product was 17,000. Myocardial perfusion protocol. 11.9 mCi of technetium 99m sestamibi was injected at rest. The patient exercised according to regular Asad protocol for total duration of 4 minutes and 15 and at peak exercise 33.6 mCi of technetium 99m sestamibi was injected stress images were obtained stress and rest images were reconstructed in comparing the short axis vertical long and horizontal long axis. Gated images were also obtained. Perfusion SPECT analysis: Review of the stress images demonstrate normal uptake of tracer noted in all areas of the myocardium. The resting images similarly demonstrate normal uptake of tracer noted in all areas of the myocardium. No areas of reversibility are noted to suggest ischemia no previous infarct was noted. Gated SPECT analysis: The gated ejection fraction is 74%. Conclusion: Normal exercise myocardial perfusion stress test at a moderate workload Preserved ejection fraction.
== END | disposition home or self-care (01) ==
LOC: CVS 06:39
PROVIDERS: PCP Family Medicine Geriatric Medicine; Referring Provider Nurse Practitioner Gerontology; Visit Provider Nurse Practitioner Gerontology
DX: I48.91 Unspecified atrial fibrillation (principal); I43 Cardiomyopathy in diseases classified elsewhere; I25.10 Atherosclerotic heart disease of native coronary artery without angina pectoris; Z95.1 Presence of aortocoronary bypass graft; I10 Essential (primary) hypertension; E78.5 Hyperlipidemia, unspecified; I97.89 Other postprocedural complications and disorders of the circulatory system, not elsewhere classified; R06.02 Shortness of breath; R40.0 Somnolence; R53.83 Other fatigue; I49.1 Atrial premature depolarization
CPT/HCPCS: 78452; 93017; 93306; A9500; Q9957; A4216; C8929

== ENCOUNTER 2022-11-17 18:11 | Emergency (ER) | payer MEDICARE, SELFPAY ==
[2021-09-04 10:29] VITALS: BMI 24.4
[2022-11-17 18:12] VITALS: BP 171/87; PULSE 60; RESP 19; TEMP 36.6; O2SAT 98; BMI 23.5
--- NOTE | 2022-11-17 20:35 | EDS_ITS ---
HPI History of Present Illness Chief Complaint: Weakness Informant: patient Narrative Narrative: Patient presents with recurrent episodes of generalized weakness and shortness of breath. Patient states he started having the symptoms about a year ago. He had had b ypass surgery and he did well. But he has episodes were when he gets active and walks around he gets tired, his legs feel heavy and he feels a little short of breath. He states this normally happens in the evening. In the mornings he feels good. He does not get leg pain. He does get swelling. He is not coughing. He does not get chest pain or pressure. He has had many episodes of this. He started getting injections of steroids and muscle relaxants that seem to help this. But he states the last time he got these that helped was back in July. He has had them 2 or 3 times since and they have not helped anymore. He was recently on Lasix for what sounds like 3 weeks but has been off of it now. He is wondering if he got too dehydrated. He states his urine is a lot darker than it was. He just had an outpatient echocardiogram and a nuclear stress test. I did review the studies and they do not show any signs of acute process. He had an ejection fraction of 60%. [facility] Medical History Acid reflux Atherosclerotic heart disease of [place] coronary artery without angina pectoris 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 [place] BPH (benign prostatic hyperplasia) CAD (coronary artery disease) Cardiomyopathy in other diseases classified elsewhere D-dimer, elevated DDD (degenerative disc disease) Dyspnea on exertion Edema Essential hypertension Fibromyalgia Hemorrhoid HTN (hypertension) Hyperlipidemia Hypothyroid Nasal sinus polyp Postoperative atrial fibrillation Premature atrial contractions Premature ventricular contraction Pulmonary nodule Syncope White coat syndrome with hypertension Home Medications aspirin 81 mg chewable tablet 81 mg PO DAILY [facility]ART [facility] 02/22/21 [History Last Taken 02/22/21] pantoprazole 40 mg tablet,delayed release 40 mg PO DAILY 30 days #30 tabs 03/12/21 [Rx Last Taken Unknown] cholecalciferol (vitamin D3) 25 mcg (1,000 unit) capsule 25 mcg PO DAILY 12/25/21 [History Last Taken Unknown] levothyroxine 75 mcg tablet 88 mcg PO DAILY@0600 06/26/22 [History Last Taken Unknown] metoprolol tartrate 25 mg tablet 25 mg PO BID #180 tabs 08/28/22 [Rx Last Taken Unknown] furosemide 20 mg tablet (Lasix) 20 mg PO .COMPLEX #60 tabs 10/30/22 [Rx Last Taken Unknown] Allergy/AdvReac Type Severity Reaction Status Date / Time erythromycin base Allergy Hives Verified 11/17/22 18:13 amoxicillin [From Augmentin] AdvReac Severe Itching Verified 11/17/22 18:13 atorvastatin AdvReac Severe myalgias Verified 11/17/22 18:13 clavulanic acid AdvReac Severe Itching Verified 11/17/22 18:13 [From Augmentin] fenofibrate [From Tricor] AdvReac Severe myalgias Verified 11/17/22 18:13 levofloxacin [From Levaquin] AdvReac Unknown Unknown Verified 11/17/22 18:13 Family History Father CVA (cerebral vascular accident) Hypertension Heart disease Mother CAD (coronary artery disease) Brother Hypertension Brother CAD (coronary artery disease) Hypertension Sister Hypertension Sister Patent foramen ovale Sister Hypertension Lung cancer Other Dyspnea on exertion Surgical History H/O hemorrhoidectomy History of back surgery History of cholecystectomy History of coronary artery bypass graft x 3 (~02/26/21) History of kidney surgery History of radiofrequency ablation procedure for cardiac arrhythmia (~10/2002) Hx of appendectomy Social History household members: none Smoking Status: Never smoker alcohol intake: never substance use type: does not use ROS ROS ED ROS Narrative A complete review of systems was performed and is negative except as documented in the history of present illness. Some specific details below. Constitutional: No recent fevers or chills. No malaise except in the evenings. In the mornings he feels fine. EYE: No discharge, visual complaints, or pain. ENT: No difficulty swallowing. No swelling. No pain. No reflux symptoms. CV: See history of present illness. He does not get chest pain or palpitations. He gets exertional dyspnea but generally only late in the evening. Respiratory: See history of present illness. GI: No abdominal pain. No nausea vomiting diarrhea. No blood in stool. : No frequency dysuria or hematuria. Musculoskeletal: No recent trauma. No pains. No swelling. He does not get pain in his legs even with walking. His legs do feel tired. No swelling. Skin: No rash. Nondiaphoretic. Neuro: No weakness or numbness. Endocrine: No polyuria or polydipsia. EXAM Physical Exam Narrative Exam Narrative: CONSTITUTIONAL: Patient is nontoxic in appearance. The patient looks comfortable. Work of breathing looks normal. He looks very nontoxic. HEENT: No notable trauma. Mucous membranes moist no sign of significant dryness. No sinus tenderness. No indication of pain with swallowing. EYES: No conjunctival injection. No proptosis. No pallor. NECK:No JVD. No stridor. CARDIOVASCULAR: Regular rate. Regular rhythm. No notable murmur. No JVD. He is rate varies about 58-65. But does appear to be sinus rhythm on the monitor without any notable ectopy. RESPIRATORY: No respiratory distress. Breathing is unlabored. No wheezes. No rhonchi. No rales. No pain with a deep breath. No chest wall tenderness. Saturations are 98% on room air showing no hypoxia. GASTROINTESTINAL: Not distended. Bowel sounds are normal. No tenderness. No guarding. No rebound. No palpable mass. No bruit is heard. GENITOURINARY: No tenderness over the bladder. No CVA tenderness. MUSCULOSKELETAL: Atraumatic. No peripheral edema. No cord. No tenderness along the deep venous system. No asymmetry. No distended veins. No mottling or poor color. No tenderness anywhere. NEUROLOGICAL: Patient is alert and appropriate. No focal deficit noted. SKIN: No noted rashes. No diaphoresis. PSYCHIATRIC: Patient is calm. Mood is appropriate. Const Vital Signs: 11/17/22 18:12 11/17/22 19:58 11/17/22 20:50 Temperature 97.8 F Temperature Source Temporal Pulse Rate 60 59 L Respiratory Rate 19 H 20 H Respiratory Effort Normal Non-Labored Blood Pressure 171/87 H Blood Pressure Mean 115 Pulse Ox 98 Oxygen Delivery Method Room Air MDM MDM MDM Narrative Medical decision making narrative: Patient CBC shows normal white count hemoglobin and platelets. Patient's electrolytes showed creatinine 1.39 but this is better than his recent level. No sign of significant dehydration. He is currently off the diuretic. Patient's troponin is negative at 8. My independent her potation the patient's chest x-ray shows prior spinal stabilization and median sternotomy but no acute process. Final reading is no radiographic evidence of acute cardiopulmonary disease. We walked the patient. His lowest saturation was 93% showing no hypoxia. He was steady. He tells me he felt good. I do not think we need to keep him in the hospital. He has had the symptoms waxing and waning for over a year. He has follow-up appointment with rheumatology in about 2-1/2 weeks. 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 Lab Data Attestation: I reviewed the patient's lab results. Labs: Laboratory Results - last 24 hr 11/17/22 11/17/22 20:57 20:57 WBC 10.9 RBC 4.64 Hgb 14.5 Hct 43.9 MCV 94.6 H MCH 31.3 MCHC 33.0 RDW Std Deviation 43.5 RDW Coeff of Sukumar 12.4 Plt Count 306 MPV 9.5 Immature Gran % (Auto) 1.200 H Neut % (Auto) 82.4 H Lymph % (Auto) 8.6 L Scurry % (Auto) 7.6 Eos % (Auto) 0.0 Baso % (Auto) 0.2 Absolute Neuts (auto) 9.0 H Absolute Lymphs (auto) 0.94 Nucleated RBC % 0 Sodium 143 Potassium 4.5 Chloride 110 H Carbon Dioxide 29.0 Anion Gap 4 L BUN 33 H Creatinine 1.39 H Estim Creat Clear Calc 45.14 Est GFR (MDRD) Af Amer 63 Est GFR (MDRD) Non-Af 52 L BUN/Creatinine Ratio 23.7 H Glucose 114 H Calcium 9.2 Troponin I High Sens 8 Radiography Diagnostic Testing: Clinical Impression(s) from Imaging Studies Chest X-Ray 11/17/22 20:45 IMPRESSION: 1. No radiographic evidence of acute cardiopulmonary disease. Electronically Signed: Gregorio Draper DO at 21:14 EDT , EKG Initial EKG: Comments: Independent interpretation of the patient's EKG done for exertional dyspnea and weakness shows sinus rhythm with mildly bradycardic rate of 57. Occasional PAC with compensatory pause. No ventricular ectopy. No acute ST elevation or depression. DC interval, QRS duration and QTc are normal Discharge Plan Triage Chief Complaint: Weakness ED Provider: Emre Hussein Dx/Rx/DC Orders Clinical Impression: Exertional dyspnea, Episodic weakness Instructions: ED Weakness (Uncertain Cause) Prescriptions: No Action cholecalciferol (vitamin D3) 25 mcg (1,000 unit) capsule 25 mcg PO DAILY levothyroxine 75 mcg tablet 88 mcg PO DAILY@0600 aspirin 81 mg Tablet,Chewable 81 mg PO DAILY pantoprazole 40 mg Tablet,Delayed Release (Dr/Ec) 40 mg PO DAILY 30 Days Qty: 30 0RF metoprolol tartrate 25 mg tablet 25 mg PO BID Qty: 180 3RF furosemide [Lasix] 20 mg tablet 20 mg PO .COMPLEX Qty: 60 11RF Hold Instructions: Pt stopped due to frequent urination Rx Instructions: 20 mg orally 2 tablets together (40mg) every morning for 5 days, then resume 20 mg (1 tablet) every morning; please give extra tablets for future use; Primary Care Provider: Jose Hooks Chi Referrals: Jose Hooks Chi, MD [Primary Care Provider] - As soon as possible Disposition Disposition: Home, Self Care
--- NOTE | 2022-11-17 20:45 | RAD_ITS ---
INDICATION: SOB EXAMINATION/TECHNIQUE: X-RAY - XR Chest 1 View COMPARISON: October 30, 2022 chest x-ray FINDINGS: LINES/DEVICES: None. There are sternotomy wires and a sternotomy plate from prior thoracotomy. LUNGS: Symmetric normal lung volumes. No airspace opacity or abnormal interstitial pattern. No nodule or mass. No pleural effusion or pneumothorax. MEDIASTINUM AND CARDIOVASCULAR STRUCTURES: Normal size and contour of the cardiomediastinal silhouette. No evidence of pulmonary vascular congestion. BONES AND SOFT TISSUES: No fracture or focal osseous lesion. Degenerative changes bilateral glenohumeral joints. RAD/Chest 1 View (Portable) IMPRESSION: 1. No radiographic evidence of acute cardiopulmonary disease. Electronically Signed: Gregorio Draper DO at 21:14 EDT ,
[2022-11-17 20:50] VITALS: PULSE 59; RESP 20
[2022-11-17 21:04] LABS: Absolute Lymphocyte Count 0.94 X10^3/uL (0.83-4.51); Basophil# 0.02 X10^3/uL; Basophil% 0.2 % (0-1); Hematocrit 43.9 % (40-54); Hemoglobin 14.5 g/dL (13.0-16.5); Lymphocyte # 0.94 X10^3/ul (0.83-4.51); Lymphocyte % 8.6 % (19-41); Mean Corpuscular Hgb 31.3 pg (27.0-32.0); Mean Corpuscular Volume 94.6 fL (80-94); Mean Platelet Vol. 9.5 fl (6.2-12.0); Monocyte# 0.83 X10^3/uL; Monocyte% 7.6 % (0-10); NRBC Flagged by Analyzer 0 % (0-5); Neutrophil # 8.97 X10^3/uL (2.7-7.7); Neutrophil % 82.4 % (47-70); Platelet Count 306 K/mm3 (150-450); RBC Distribution Width CV 12.4 % (11.6-14.6); RBC Distribution Width SD 43.5 fl (35.1-43.9); Red Blood Count 4.64 M/mm3 (4.6-6.2); White Blood Count 10.9 K/mm3 (4.4-11.0)
[2022-11-17 21:23] LABS: Anion Gap 4 (5-15); BUN 33 mg/dL (7-18); BUN/Creat Ratio 23.7 RATIO (10-20); Calcium,Total 9.2 mg/dL (8.5-10.1); Chloride 110 mmol/L (98-107); Creatinine, Serum 1.39 mg/dL (0.70-1.30); EST Glomerular Filtration Rate 52 mL/min (>60); Est Glom Filt Rate - Afr Amer 63 mL/min (>60); Estimated Creatinine Clearance 45.14 ml/min; Glucose 114 mg/dL (74-106); Potassium 4.5 mmol/L (3.5-5.1); Sodium Level 143 mmol/L (136-145); Troponin-I HS 8 pg/mL (3.0-78.0)
[2022-11-17 22:29] VITALS: O2SAT 95
[2022-11-17 22:30] VITALS: BP 153/97; PULSE 64; RESP 17
[2022-11-17 23:19] VITALS: BP 179/96; PULSE 62; RESP 15; O2SAT 97
== END 2022-11-17 23:24 | disposition home or self-care (01) ==
PROVIDERS: Emergency Provider Emergency Medicine; PCP Family Medicine Geriatric Medicine; Visit Provider Emergency Medicine
DX: R53.1 Weakness (principal); I10 Essential (primary) hypertension; E78.5 Hyperlipidemia, unspecified; I25.10 Atherosclerotic heart disease of native coronary artery without angina pectoris; Z79.82 Long term (current) use of aspirin; Z90.49 Acquired absence of other specified parts of digestive tract; R06.00 Dyspnea, unspecified
CPT/HCPCS: 71045; 80048; 84484; 85025; 93005; 99284; A4216

== ENCOUNTER → 2022-12-24 | Outpatient (CLI) | payer MEDICARE, SELFPAY ==
[2021-09-04 10:29] VITALS: BMI 24.4
[2022-12-24 12:18] LABS: Absolute Lymphocyte Count 1.28 X10^3/uL (0.83-4.51); Basophil# 0.05 X10^3/uL; Basophil% 0.8 % (0-1); Eosinophil# 0.24 X10^3/uL; Eosinophils% 3.9 % (0-5); Hematocrit 45.7 % (40-54); Hemoglobin 15.1 g/dL (13.0-16.5); Lymphocyte # 1.28 X10^3/ul (0.83-4.51); Lymphocyte % 20.9 % (19-41); Mean Corpuscular Hgb 32.3 pg (27.0-32.0); Mean Corpuscular Volume 97.6 fL (80-94); Mean Platelet Vol. 9.7 fl (6.2-12.0); Monocyte# 0.56 X10^3/uL; Monocyte% 9.2 % (0-10); NRBC Flagged by Analyzer 0 % (0-5); Neutrophil # 3.95 X10^3/uL (2.7-7.7); Neutrophil % 64.7 % (47-70); Platelet Count 316 K/mm3 (150-450); RBC Distribution Width CV 12.6 % (11.6-14.6); RBC Distribution Width SD 45.3 fl (35.1-43.9); Red Blood Count 4.68 M/mm3 (4.6-6.2); White Blood Count 6.1 K/mm3 (4.4-11.0)
[2022-12-24 12:36] LABS: Vitamin D,25 Hydroxy 84.7 ng/mL
[2022-12-24 12:49] LABS: ALB/GLOB Ratio 0.9 RATIO (0.9-2.4); AST(SGOT) 12 U/L (15-37); Alanine Aminotransfer ALT/SGPT 20 U/L (16-61); Albumin, Serum 3.1 g/dL (3.2-5.0); Alkaline Phosphatase 62 U/L (45-117); Anion Gap 5 (5-15); BUN 22 mg/dL (7-18); BUN/Creat Ratio 14.7 RATIO (10-20); Calcium,Total 8.7 mg/dL (8.5-10.1); Chloride 110 mmol/L (98-107); EST Glomerular Filtration Rate 48 mL/min (>60); Est Glom Filt Rate - Afr Amer 58 mL/min (>60); Globulin 3.3 g/dL (2.2-4.2); Glucose 105 mg/dL (74-106); Potassium 3.8 mmol/L (3.5-5.1); Protein, Total 6.4 g/dL (6.4-8.2); Sodium Level 142 mmol/L (136-145); Thyroid Stim Hormone (TSH) 0.78 uIU/mL (0.358-3.74)
== END | disposition home or self-care (01) ==
PROVIDERS: PCP Family Medicine Geriatric Medicine; Visit Provider Family Medicine Geriatric Medicine
DX: I10 Essential (primary) hypertension (principal); E55.9 Vitamin D deficiency, unspecified
CPT/HCPCS: 36415; 80053; 82306; 84443; 85025

== ENCOUNTER 2023-01-05 10:39 | Observation (INO) | payer MEDICARE, SELFPAY ==
[2021-09-04 10:29] VITALS: BMI 24.4
[2022-12-15 09:34] VITALS: BMI 23.1
[2023-01-05] VITALS (10 sets, daily range): BP systolic 138–161; BP diastolic 84–103; PULSE 57–77; RESP 14–18; TEMP 36.3–37.2; O2SAT 94–99; BMI 23.2
[2023-01-05] MEDS: 0.9% Normal Saline 1,000 ML 100 ML IV (10:40)
--- NOTE | 2023-01-05 10:40 | CL.I_ITS ---
Patient Name: KULWANT ANDRADE Study Date: 01/05/2023 Performing: Melody Whitmore MD Ht: 71 inches 180.34 cm : 1940 Wt: 166.2 lbs 75.3 kg Age: 82 Gender: male BSA: 1.95 PROCEDURE(S) PERFORMED DC04-(86667)LHC/COR/CABG IC12-([id number])REKHA W/WO PTCA, SINGLE CORONARY ARTERY CLINICAL PROFILE AND CO-MORBIDITIES Indications: Stable Known CAD Heart Failure: None CAD Presentations: Other: Dyspnea, likely angina equivalent CONCLUSIONS 95% Prox, 70% Mid LAD; ARMSTRONG to LAD atretic, 80% anastomitic lesion 100% Mid LCX; SVG to OM 100%; OM2 filling retrogradely via collataerals from the RPLV 100% Prox RCA; SVG to RPDA patent; [place] RPDA 60% distal, small 1.5 mm vessel Successful REKHA Mid LAD using Resolute [place] 2.75x15 mm Successful REKHA Prox LAD using Resolute [place] 3.0x38 mm, optimized proximally using 4.0 mm balloon RECOMMENDATIONS ASA Indefinitley Plavix for at least 12 months DESCRIPTION OF PROCEDURE The patient arrived to the procedure lab. The risks and benefits of the procedure as well as a full description of our services here and lack of surgical backup were fully explained to the patient and/or their significant other prior to the catheterization. The Timeout was completed, verifying the correct patient and procedure. The patient's procedural site was prepped and draped in the usual fashion. Local anesthetic was given subcutaneously to left radial region with Lidocaine 2%. Using a modified Seldinger technique, arterial access was obtained via the left radial artery, a 6Fr sheath was inserted.. Right Coronary Artery selective angiography was then performed in multiple views using a 5 Fr. 4.0 [place] catheter. Left Coronary Artery selective angiography was performed in multiple views using a 5 Fr. 4.0 [place] catheter. Saphenous Vein graft to the OM 1 selective angiography was performed in multiple views using a 5 Fr. [place] 1 catheter. Saphenous Vein graft to the RPDA selective angiography was performed in multiple views using a 5 Fr. [place] 1 catheter. Left internal mammary artery graft to the LAD selective angiography was performed in multiple views using a 5 Fr. IM catheter 6F XB 3.5 Guide catheter was inserted and engaged into the LCA. runthrough Guide wire was advanced to the LAD. 2.75 x 15 [place] Drug Eluting stent was inserted. Drug Eluting stent was advanced across the lesion in the LAD, mid. Angiogram performed pre stent deployment. Angiogram performed post stent deployment. 2.75 x 15 [place] Balloon catheter was inserted post stent. 3.0 x 38 [place] Drug Eluting stent was inserted. Drug Eluting stent was advanced across the lesion in the LAD, proximal. Angiogram performed pre stent deployment. Angiogram performed post stent deployment. 3.0 x 20 [place] Balloon catheter was inserted post stent. Angiogram performed post balloon dilatation. 4.0 x 6 [place] Balloon catheter was inserted post stent. Angiogram performed post balloon dilatation. Balloon catheter was reinserted Angiogram performed post balloon dilatation. The arterial sheath was pulled and a TR Band was applied for hemostasis. 10cc air inserted. CORONARY ANGIOGRAPHY DOMINANCE: Right Dominant LEFT HEART ASSESSMENT Left Ventricular Ejection Fraction: Not assessed LEFT ANTERIOR DESCENDING ARTERY: LAD: Tubular 95% Proximal lesion in LAD Tubular 70% Mid lesion in LAD CIRCUMFLEX ARTERY: CIRCUMFLEX: Tubular 100% Proximal lesion in Circumflex RIGHT CORONARY ARTERY: RCA: Tubular 100% Proximal lesion in RCA RT PDA: Tubular 60% Distal lesion in Right PDA GRAFTS: SVG Graft to 2nd OM Tubular 100% lesion in SVG Graft to 2nd OM SVG Graft to Right PDA ARMSTRONG Graft to LAD Tubular 80% lesion in ARMSTRONG Graft to LAD COLLATERAL FLOW: Collateral flow from RCA to 2nd OM INTERVENTION INFORMATION LESION SITE: LAD (Mid) Lesion Complexity: Non-High/Non-C, lesion length: 14 mm Pre Stenosis: 70 % Pre intervention VAISHNAVI flow: 3 PROCEDURE: Drug Eluting Stent with post dilatation Post Stenosis: 0 % Post intervention VAISHNAVI flow: 3 Lesion Devices: Cordis 6 Fr XB3.5 100cm Guide Catheter Terumo .014 180cm Runthrough Extra Floppy straight Medtronic Resolute [place] RX REKHA 2.75x15 [place] EMERGE MR 2.75x15 BALLOON LESION SITE: LAD (Proximal) Lesion Complexity: High/C, lesion length: 36 mm Pre Stenosis: 95 % Pre intervention VAISHNAVI flow: 3 PROCEDURE: Drug Eluting Stent with post dilatation Post Stenosis: 0 % Post intervention VAISHANVI flow: 3 Lesion Devices: Cordis 6 Fr XB3.5 100cm Guide Catheter Terumo .014 180cm Runthrough Extra Floppy straight Medtronic Resolute [place] RX REKHA 3.0x38 Mick Sci NC EMERGE MR 3.00x20 BALLOON Medtronic NC EUPHORA RX 4.0x06 BALLOON COMPLICATIONS No Complications PROCEDURE MEDICATIONS Fentanyl 50 mcg IV Versed 1 mg IV Oxygen: 2 L/min via nasal cannula Brilinta 180 mg PO @ 01/05/2023 09:32:24 Heparin given IA 01/05/2023 09:08:30 Heparin 2000 unit(s) IV 01/05/2023 09:17:02 Heparin 6000 unit(s) IV 01/05/2023 09:30:46 Heparin 2000 unit(s) IV 01/05/2023 10:13:20 Nitro 200 mcg IC 01/05/2023 09:42:48 Nitro 200 mcg IC 01/05/2023 09:42:48 Verapamil 2.5mg, Ntg 200mcgs, 2000 units of Heparin given IA 01/05/2023 09:08:30 IV Bolus: .9 NaCl 500 ml total 01/05/2023 10:05:34 SUMMARY OF HEMODYNAMIC DATA Time AIR REST ECG 07:23:11 AO 126/61 (84) SA 09:12:54 Signed By Melody Whitmore MD On 01/06/2023 08:31:42 Signed By Melody Whitmore MD On 01/05/2023 10:39:15 Melody Whitmore MD
[2023-01-05] MEDS: amLODIPine 2.5 MG Tablet PO (11:34)
--- NOTE | 2023-01-05 12:12 | CRPHASE1_ITS ---
Patient Communication Patient Information Former Patient:: Phase I PHII Cardiac Rehab Discussed with Patient:: Yes Guide to Cardiac Rehab Given to Patient:: Yes Cardiac Rehab Facility Choice List Given to Patient:: Yes Communication to Cardiac Rehab Academic Affairs Specialist:: Melody Whitmore Medical/Surgical History Medical History MO:: No Angina:: Yes CAD:: Yes Congestive Heart Failure: Cardiomyopathy:: No Valve Disease/Replacement:: No Pulmonary:: Yes COPD:: No Asthma:: No Diabetes:: No Diabetes Type I:: No Hypertension:: Yes Dyslipidemia:: Yes CVA/TIA: DVT:: No GI:: Yes GERD:: Yes Cancer:: No Renal:: Yes Thyroid:: No Depression:: No Anxiety:: No Surgical History CABG: Yes ICD:: No Pacemaker:: No Cardiac Rehabilitation Info Program Information Cardiac Rehabilitation Program Information: Cardiac Rehab The cardiac rehab team at [facility] consists of highly skilled exercise physiologists, nurses, respiratory therapists and physicians working together with you. Our purpose is to help you have a full recovery and achieve the goals you set for yourself. Over the years many of our patients have returned to activities they assumed they would never do again! We can help restore your confidence and motivation to make lifestyle changes that can have a significant impact on your health and quality of life! We can help answer questions and concerns you may have about exercise, lifestyle, medications, diet, stress and anxiety which are common following a hospitalization. WE monitor ECG and vital signs during exercise and discuss your progress with you and report to your physician(s). Cardiac Rehab is proven to help reduce readmissions, improve functional capacity and lower recurrence of problems with your heart. Our Cardiac Rehab program is Certified by the [place] [employer]-Vascular and Pulmonary [employer] (AACVPR) and Accredited by the [place] [employer] through our [facility]. You can contact us at . We invite you to call us with your questions or to get started in our program. If you have other questions or concerns be sure to ask your physician/provider during your follow-up visit. WE look forward to seeing you!
--- NOTE | 2023-01-05 12:14 | CRPH1.INSTRU ---
General Education Discussed with Patient CAD and cardiac anatomy and function:: Patient communicates acknowledgment Explanation of diagnoses and procedures:: Patient communicates acknowledgment Sign/Symptoms of SD:: Patient communicates acknowledgment Antiplatelet therapy: Patient communicates acknowledgment Proper use of NTG-SL: Patient communicates acknowledgment Emergency procedures and activation of EMS: Patient communicates acknowledgment Compliance of all prescribed medications: Patient communicates acknowledgment Smoking Risk Factors Patient Nicotine/Smoking Risk Factors Are:: Never smoked Recommendations Recommendations Include:: Second-hand smoke recommendation Response Code Nicotine/Smoking Response Code:: Patient communicates acknowledgment Dyslipidemia Response Code Dyslipidemia Response Code:: Patient communicates acknowledgment Overweight/Obesity Risk Factors Patient Overweight/Obesity Risk Factors Are:: BMI Normal [24-29 & > 65 years old] Recommendations Recommendations Include:: Exercise 5-7 times/week Response Code Overweight/Obesity:: Patient communicates acknowledgment Hypertension Response Code Hypertension:: Patient communicates acknowledgment Heart Disease Response Code Heart Disease Response Code:: Patient communicates acknowledgment
[2023-01-05] MEDS: Clopidogrel Bisulfate 300 MG Tablet PO (16:38)
[2023-01-05] MEDS: Metoprolol Tartrate 25 MG Tablet PO (21:19)
[2023-01-06 03:47] VITALS: BP 148/96; PULSE 58; RESP 16; TEMP 36.6; O2SAT 96
[2023-01-06 05:26] VITALS: BMI 23.3
[2023-01-06] MEDS: Levothyroxine 88 MCG Tablet PO (06:00)
[2023-01-06 06:12] LABS: Hematocrit 40.1 % (40-54); Hemoglobin 13.7 g/dL (13.0-16.5); Mean Corp Hgb Conc 34.2 g/dL (32-36); Mean Corpuscular Hgb 31.8 pg (27.0-32.0); Mean Platelet Vol. 9.3 fl (6.2-12.0); Platelet Count 252 K/mm3 (150-450); RBC Distribution Width CV 12.2 % (11.6-14.6); RBC Distribution Width SD 42.2 fl (35.1-43.9); Red Blood Count 4.31 M/mm3 (4.6-6.2); White Blood Count 6.5 K/mm3 (4.4-11.0)
[2023-01-06 07:03] LABS: AST(SGOT) 20 U/L (15-37); Alanine Aminotransfer ALT/SGPT 29 U/L (16-61); Albumin, Serum 2.8 g/dL (3.2-5.0); Alkaline Phosphatase 60 U/L (45-117); Anion Gap 4 (5-15); BUN 17 mg/dL (7-18); BUN/Creat Ratio 14.5 RATIO (10-20); Calcium,Total 8.3 mg/dL (8.5-10.1); Chloride 110 mmol/L (98-107); Creatinine, Serum 1.17 mg/dL (0.70-1.30); EST Glomerular Filtration Rate 64 mL/min (>60); Est Glom Filt Rate - Afr Amer 77 mL/min (>60); Estimated Creatinine Clearance 51.99 ml/min; Globulin 2.7 g/dL (2.2-4.2); Glucose 87 mg/dL (74-106); Potassium 3.7 mmol/L (3.5-5.1); Protein, Total 5.5 g/dL (6.4-8.2); Sodium Level 140 mmol/L (136-145)
[2023-01-06 07:16] VITALS: O2SAT 96
[2023-01-06 08:43] LABS: ACT Activated Clotting Time 221 sec (74-137)
[2023-01-06 08:53] VITALS: BP 132/82; PULSE 71
[2023-01-06] MEDS: Cholecalciferol (VIT D3) 25 MCG TABLET (1,000 UNITS) PO (08:53)
[2023-01-06] MEDS: amLODIPine 2.5 MG Tablet PO (08:53)
[2023-01-06] MEDS: Metoprolol Tartrate 25 MG Tablet PO (08:53)
[2023-01-06] MEDS: Aspirin 81 MG TAB.CHEW PO (08:55)
[2023-01-06] MEDS: Pantoprazole Sodium 40 MG Tablet PO (08:55)
--- NOTE | 2023-01-06 09:33 | CASEMGMT ---
Patient has order for discharge. RN CM in to inquire about needs at discharge. Patient denies needs at discharge, states daughter lives next door to patient. Patient had no further questions or concerns at this time.
[2023-01-06] MEDS: Clopidogrel Bisulfate 75 MG Tablet PO (09:34)
--- NOTE | 2023-01-06 10:00 | EKG12_ITS ---
Test Reason : AM EKG Blood Pressure : / mmHG Vent. 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
[2023-01-06 10:02] VITALS: BP 140/98; PULSE 56; RESP 18; TEMP 36.2; O2SAT 96
--- NOTE | 2023-01-06 10:25 | PHA.DC.MC.R ---
Pharmacy [facility] has performed discharge medication reconciliation and counseling for this patient. 1. AMLODIPINE 2.5MG PO DAILY 2. CLOPIDOGREL 75MG PO DAILY The patient's discharge medication list was reviewed for discrepancies and discrepancies were resolved. The patient was counseled on the following discharge medications and changes in medications for homegoing were reviewed. The Reason for Use, instructions for use, and potential side effects were reviewed for all new medications. The patient's questions regarding all of their medications were answered. The patient was able to verbally demonstrate an understanding of their discharge medications. Patient counseled by clinical pharmacy technicianRenetta. Medications at Discharge Home Medications aspirin 81 mg chewable tablet 81 mg PO DAILY HEART HEALTH 02/22/21 pantoprazole 40 mg tablet,delayed release 40 mg PO DAILY reflux 30 days #30 tabs 03/12/21 cholecalciferol (vitamin D3) 25 mcg (1,000 unit) capsule 25 mcg PO DAILY vitamin 12/25/21 levothyroxine 75 mcg tablet 88 mcg PO DAILY@0600 thyroid 06/26/22 metoprolol tartrate 25 mg tablet 25 mg PO BID blood pressure #180 tabs 08/28/22 evolocumab 140 mg/mL subcutaneous pen injector (Repatha SureClick) 140 mg subcut Q2W cholesterol #2 mL 11/18/22 furosemide 20 mg tablet (Lasix) 20 mg PO DAILY PRN edema, sob, weight gain #60 tabs 11/18/22 amlodipine 2.5 mg tablet 2.5 mg PO DAILY #60 tabs 01/05/23 clopidogrel 75 mg tablet 75 mg PO DAILY #30 tabs 01/05/23
--- NOTE | 2023-01-06 11:27 | DCINST_ITS ---
Discharge Instructions Diet Discharge Diet: Low fat / Low cholesterol Activity Discharge Activity: Return to Normal Activity Dressing / Incision Call your doctor if your incision/area has: Sudden Increased Bleeding, Increased Pain/ Swelling, Increased Redness, Foul Smelling Discharge and Swelling at the incision site Follow Up Care Please Follow Up With: Melody Whitmore MD When: 2 weeks Test Results: Test results from this visit will be discussed in further detail at your follow- up appointment, if applicable. Discharge Plan Admission Admit Date/Time: 01/05/23 10:39 Attending Provider: Melody Whitmore Primary Care Provider: Jose Hooks Chi Instructions Patient Instructions: Cardiac Cath Transradial Discharge Orders/Prescriptions Prescriptions: New amlodipine 2.5 mg Tablet 2.5 mg PO DAILY Qty: 60 6RF clopidogrel 75 mg Tablet 75 mg PO DAILY Qty: 30 11RF Continued cholecalciferol (vitamin D3) 25 mcg (1,000 unit) capsule 25 mcg PO DAILY levothyroxine 75 mcg tablet 88 mcg PO DAILY@0600 aspirin 81 mg Tablet,Chewable 81 mg PO DAILY pantoprazole 40 mg Tablet,Delayed Release (Dr/Ec) 40 mg PO DAILY 30 Days Qty: 30 0RF metoprolol tartrate 25 mg tablet 25 mg PO BID Qty: 180 3RF Repatha SureClick 140 mg/mL pen injector 140 mg subcut Q2W Qty: 2 11RF furosemide [Lasix] 20 mg tablet 20 mg PO DAILY PRN (Reason: edema, sob, weight gain) Qty: 60 11RF Hold Instructions: Pt stopped due to frequent urination Referrals / Follow Up: Jose Hooks Chi, MD [Primary Care Provider] - Disposition Disposition (needs filled in before D/C Order can be placed): Home, Self Care
--- NOTE | 2023-01-06 12:11 | NURSING ---
patient discharged per orders. Transporting via family in private vehicle.
== END 2023-01-06 10:00 | disposition home or self-care (01) ==
LOC: CLSP 11:19 → PCU 11:19
PROVIDERS: Admitting Provider Internal Medicine Cardiovascular Disease; PCP Family Medicine Geriatric Medicine; Referring Provider Internal Medicine Cardiovascular Disease; Visit Provider Internal Medicine Cardiovascular Disease
DX: Z79.899 Other long term (current) drug therapy (principal); Z95.1 Presence of aortocoronary bypass graft; R53.1 Weakness; R06.09 Other forms of dyspnea; Z79.82 Long term (current) use of aspirin; Z79.890 Hormone replacement therapy; K21.9 Gastro-esophageal reflux disease without esophagitis; N40.0 Benign prostatic hyperplasia without lower urinary tract symptoms; I25.10 Atherosclerotic heart disease of native coronary artery without angina pectoris; M79.7 Fibromyalgia; I10 Essential (primary) hypertension; E78.5 Hyperlipidemia, unspecified; E03.9 Hypothyroidism, unspecified
CPT/HCPCS: 36415; 80053; 85027; 85347; 92928; 93005; 93455; 96360; 96361; 99152; 99153; 99221; C1725; C1894; J7030; J7040; Q9967; C1769; C1874; C1887; C9600; G0378

== ENCOUNTER → 2023-01-12 | Outpatient (CLI) | payer MEDICARE, SELFPAY ==
[2021-09-04 10:29] VITALS: BMI 24.4
--- NOTE | 2023-01-12 12:55 | CR.HP_ITS ---
CR - History & Physical General Arrival date:: 01/12/23 Arrival time:: 12:56 Date of Referral:: 01/06/23 Date of CR Evaluation:: 01/12/23 Referring Physician: Dr. Eliseo Pittman Primary Diagnosis: PCI with stent History of Present Cardiac Event Onset Date PTCA or coronary stenting:: Yes Medications Ambulatory Orders Medication Instructions Recorded aspirin 81 mg chewable tablet 81 mg PO DAILY HEART HEALTH 02/22/21 pantoprazole 40 mg tablet,delayed 40 mg PO DAILY reflux 30 days #30 03/12/21 release tabs cholecalciferol (vitamin D3) 25 25 mcg PO DAILY vitamin 12/25/21 mcg (1,000 unit) capsule levothyroxine 75 mcg tablet 88 mcg PO DAILY@0600 thyroid 06/26/22 metoprolol tartrate 25 mg tablet 25 mg PO BID blood pressure #180 08/28/22 tabs evolocumab 140 mg/mL subcutaneous 140 mg subcut Q2W cholesterol #2 mL 11/18/22 pen injector (Repshiraa SureClick) furosemide 20 mg tablet (Lasix) 20 mg PO DAILY PRN edema, sob, 11/18/22 weight gain #60 tabs amlodipine 2.5 mg tablet 2.5 mg PO DAILY #60 tabs 01/05/23 clopidogrel 75 mg tablet 75 mg PO DAILY #30 tabs 01/05/23 Allergies Allergies erythromycin base Allergy (Verified 12/09/22 13:03) Hives amoxicillin [From Augmentin] Adverse Reaction (Severe, Verified 12/09/22 13:03) Itching atorvastatin Adverse Reaction (Severe, Verified 12/09/22 13:03) myalgias clavulanic acid [From Augmentin] Adverse Reaction (Severe, Verified 12/09/22 13:03) Itching fenofibrate [From Tricor] Adverse Reaction (Severe, Verified 12/09/22 13:03) myalgias levofloxacin [From Levaquin] Adverse Reaction (Unknown, Verified 12/09/22 13:03) Unknown Sleep Disorder Evaluation Hx of Sleep Apnea: No Do you snore loudly (louder than talking or can be heard through closed doors)?: No Do you often feel tired/ fatigued/ sleepy during daytime?: No Has anyone observed you stop breathing during sleep?: No History of Hypertension (for STOP score): Yes STOP Results: Negative Advanced Directives Advanced Directives Power of Rn Family: Yes Living Will: Yes Advance Directives Information Provided: Yes Advance Directives on File: Yes DNR Order?:: No Past Medical History Covid-19 Screening Physicial Symptoms Other Clinical Concerns Exposure Risk Pertinent Comorbidities 65 years or older:: Yes Has a serious heart condition:: Yes Past Medical Illness Past Medical History (Updated 01/06/23 @ 07:57 by Myrna Braun) Acid reflux K21.9 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 [place] I49.9 BPH (benign prostatic hyperplasia) N40.0 CAD (coronary artery disease) I25.10 Cardiomyopathy in other diseases classified elsewhere I43 D-dimer, elevated R79.89 DDD (degenerative disc disease) Dyspnea on exertion R06.00 Edema R60.9 Essential hypertension I10 Fibromyalgia M79.7 Hemorrhoid K64.9 HTN (hypertension) I10 Hyperlipidemia E78.5 Hypothyroid E03.9 Nasal sinus polyp J33.8 Postoperative atrial fibrillation I97.89, I48.91 Premature atrial contractions I49.1 Premature ventricular contraction I49.3 Pulmonary nodule R91.1 Syncope R55 White coat syndrome with hypertension I10 Past Surgical History Past Surgical History (Updated 01/06/23 @ 07:59 by Myrna Braun) H/O hemorrhoidectomy Z98.890 X 2 History of back surgery Z98.890 History of cholecystectomy Z90.49 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 History of placement of stent in LAD coronary artery (01/05/23) Z95.5 REKHA Mid LAD using Resolute Tate 2.75x15 mm, REKHA Prox LAD using Resolute Tate 3.0x38 mm History of radiofrequency ablation procedure for cardiac arrhythmia (~10/2002) Z98.890 for ventricular arrhythmia Hx of appendectomy Z90.49 Surgical History: - (Abdominal tumor 1974, hemorrhoidectomy in 1992, back surgery 1998, kidney surgery in 2001, cholecystectomy, appendectomy, cardiac ablation) Family History Summary Family History Father CVA (cerebral vascular accident) Hypertension Heart disease Mother CAD (coronary artery disease) Brother Hypertension Brother CAD (coronary artery disease) Hypertension Sister Hypertension Sister Patent foramen ovale Sister Hypertension Lung cancer Other Dyspnea on exertion Social History Smoking History Smoking Status: Never smoker Alcohol Use Alcohol Usage: No Occupation Occupation (List type of work in comments):: Retired Hobbies, Recreation, Social Activities Hobbies: Other (working on cars) Recreational Activities: I am able to engage in all my recreational activities Social Environment Status Marital Status: Current Living Arrangements Living Environment:: Alone Children How many children do you have?: 2 Do any of your children live nearby?: Yes Safety Do you feel safe in your surroundings?: Yes Assistance Do you need any assistance at home?: no Review of Systems Review of Systems Hints Review of Present Symptoms: Reports Shortness of Breath with Exertion, Fatigue, Appetite - Normal and Sleep - Normal; Denies Shortness of Breath at Rest, PVD, Operative Discomfort, Angina, Wound Healing, Dizziness/Lightheadedness, Heart Arrhythmia/Irregularities, Appetite - Special Diet or Sexual Changes Pain Is Patient Pain Free?: No Risk Factor Assessment Chief Complaint Chief Complaint: PCI with stent Vital Signs Blood Pressure: 121/85 Pulse Pulse Rate: 64 Obesity Height: 5 ft 10.87 in Weight:: 166 lb Weight in Pounds: 166.0 lbs Body Mass Index (BMI): 23.2 Nutritional Referral for Obesity: No Physical Inactivity Physical Inactivity: Recreational activity Risk Stratification Risk Guidelines: Lowest Risk: Risk Factor for Smoking and Risk Factor for Obesity, Moderate Risk: Risk Factor for Diabetes, Risk Factor for Sedentary Lifestyle and Risk Factor for Depression and Highest Risk: Risk Factor for Dyslipidemia and Risk Factor for Hypertension For Smoking Smoking Risk Guidelines For Dyslipidemia Dyslipidemia Risk Guidelines For Diabetes Mellitus Diabetes Risk Guidelines For Obesity/Overweight Obesity/Overweight Risk Guidelines For Hypertension Hypertension Risk Guidelines For Sedentary Lifestyle Sedentary Lifestyle Risk Guidelines For Depression Depression Risk Guidelines Family History Family History Father CVA (cerebral vascular accident) Hypertension Heart disease Mother CAD (coronary artery disease) Brother Hypertension Brother CAD (coronary artery disease) Hypertension Sister Hypertension Sister Patent foramen ovale Sister Hypertension Lung cancer Other Dyspnea on exertion Motivation Motivation to Participate On a scale of 1 to 10, how prepared are you to commit to attending program?: 8 What do you see as barriers to successfully being able to complete the program?: nothing What do you see as the benefits of succesfully completing the program? In other words, what do you hope to get out of participating in the program?: stronger legs and arms Are there issues you are dealing with that will interfere with completing the program?: no Do you have a spouse or signficant other, family or friends who will help support you to complete the program?: yes
[2023-01-12 13:07] VITALS: BP 121/85; PULSE 64
--- NOTE | 2023-01-12 13:07 | PCM.CR.ITP ---
Diagnosis General Information Admitting Diagnosis: PCI with stent Personal Learning Style:: Audio/Visual Stage of change r/t lifestyle modifications:: Contemplation Gave educational material for:: Treating Heart Disease, How The Heart Works, What it means to have Heart Disease, How Coronary Artery Disease is Diagnosed, Heart Procedures, What Heart Medications Do, Risk Factors & Modifications, Living an Active Life, Nutrition, Emotions & Heart Disease, Stress Management & Relaxation and Sleep Disorders & Heart Disease Education/Goals Cardiac Rehabilitation Goals Personal Goals: Initial Assessment: Improve management of stress and emotions, Improve energy level, Improve knowledge of cardiac disease and Improve muscle strength and endurance Scale for measuring improvement of personal goals Diagnosis & Disease Process Outcomes/Goals: Pt IDs own risk factors & lifestyle modifications by Session 10, Verbalizes symptoms of angina & response by session 3., Pt independently manages and Other Additional Outcomes/Goals: Plan/Interventions: Assist Pt to ID & engage in lifestyle modification to reduce CVD risk, Instruct on individual risk factors, Review symptoms of angina & emergency actions, Review secondary diagnosis & identify educational needs. and Other see comment 30 day Reassessments:: Not Met 30 day Reassessments:: Not Met 30 day Reassessments:: Not Met 30 day Reassessments:: Not Met Final Reassessments:: Not Met Safety Referral to Physical Therapy: No Referral to [facility] Case Management: No Fall Risk Assessed:: Yes Assistive Devices:: None Exercise - Initial Assessment Visit Date of Eval: 01/12/23 (initial eval ) Mets: Pre-: >3 METS for 30 minutes by discharge, >5 METS for 30 minutes by discharge, >7 METS for 30 minutes by discharge and Unable to meet goal due to: (see comment below) Physician Prescribed Exercise Modalities: Treadmill, Rower, Airdyne, NuStep, SciFit and Lateral [place] Frequency: 3x/week for 12 weeks [36 sessions] Intensity: 60-80% of age predicted maximum heart rate reserve Duration: 30 - 45 minutes Current METSs:: 3 Target Heart Rate:: 84-105 Resting Blood Pressure: 121/85 EKG Type: SB with w/premature supraventricular contractions Outcomes & Goals Goals:: Verbalizes understanding of THR, RPE & goal METS by session 6, Documents in home exercise log/reports 30 min aerobic 5 day/wk by DC, Demonstrates accurate pulse taking by DC and Other additional outcome/goals: see below Intervention & Plan Exercise Program Goals: Instruct on personal THR & RPE, Instruct on MET level & personal MET goal, Show patient to take own pulse /validate performance until accurate, Instruct on home exercise and Other additional plan/int Physical Activity Home Exercise Physical Activity - Home Exercise: Safe Exercise, Warm-up, Self-monitoring, Cool-Down, Home Exercise > 30 min Daily and Sitting Time <3 hours/daily Outcomes & Goals Outcomes/Goals: Demonstrates correct Warm-up/exercise Cool-Down (S3) if = 2.5 METs, Verbalizes symptoms of exercise intolerance by Session 3 (S3), Demonstrate safe equipment use (S3) & follows exercise prescrition (6) and Other: See below Intervention & Plan Plan/Intervention: Instruct warm-up & cool-down if exercising at > 2 METs, Instruct on symptoms of exercise intolerance & actions to take, Instruct & monitor on saf, Assess intial functional capacity & safety risk and Other See below Nutrition - Initial Assessment Program Goals Nutrition Program Goals Patient has diagnosis of Hyperlipidemia (ICD E78)?: Yes Visit Date of Eval: 01/12/23 ([facility] ) Cholesterol/Lipids (Other Core Measures) Determine presence & major risk factors that modify LDL goal: Hypertension or hypertensive medication, Low HDL cholesterol <40 mg/dL*, Family history of premature CHD in Male < 55 years: female <65 yearsFa and Age men > 45 years; women >/= 55 years Outcomes/Goals: Pt IDs own risk factors & lifestyle modifications by Session 10, Verbalizes symptoms of angina & response by session 3., Pt independently manages and Other Additional Outcomes/Goals: Intervention/Plan: Advocate for lipid panel cholesterol medication if applicable, Instruct on personal lipid levels & lipid goals/NCEP guidelines, Instruct on cholesterol and Other additional plan/int Referral to dietitian:: Yes Diabetes (Other Core Measures) Diabetes Type: Not Applicable Weight Mgt (Other Care) Height: 5 ft 10.87 in Weight:: 166 lb BMI: 23.2 Diagnosis Overweight/Obesity BMI> 30% ICD-10 E66: No Diagnosis High BMI/Morbid Obesity BMI> 35% ICD-10 Z68: No Outcomes/Goals: Pt sets, maintains & shows weight loss goal & trend during rehab and Other additional outcomes/goals Intervention/Plan: Instruct on ideal BMI & set weight loss goal w/patient, Assist pt to ID & incorporate diet changes for weight loss by S9, Refer to Structured Weight Loss program as appropriate, Encourage goal of using 250-300dcal per session for weight loss and Other additional plan/interventions Healthy Eating Habits Will attend diet classes:: Yes Outcomes/Goals:: Consume diet rich in vegs,fruits,whole grain/high fiber,fish,lean meat, Limit sat/trans fats,cholesterol & added salts & sugars and Other additional outcome/goals: Intervention/Plan:: Assess current eating habits and Other Additional plan/interventions Education Gave educational materials for:: Signs & symptoms of hypoglycemia, Signs & symptoms of hyperglycemia, Relate diabetes to coronary artery disease and Healthy eating Core - Initial Assessment Visit Date of Eval: 01/12/23 (initial eval ) Medication Compliance Preventative Medication(s):: Aspirin, Statin/lipid and Beta jack Doesn?t believe in the benefits of treatment?: No Believes medications are unnecessary or harmful?: No Has a concern about medication side effects?: No Expresses concern over the cost of medications?: No Outcomes/Goals: Verbalizes medications,desired effect & common side effects @ DC, Pt self-reports following medication regimen, Keeps card in wallet w/medications listed by DC and Other additional outcome/goals: Interventions/plans: Instruct on medication effects & side effects, Review medication list w/patient every two weeks, Instruct importance of taking meds as ordered & assist problem solving and Other additional Tobacco Use Tobacco Use: Non-smoker Hypertension Hypertension Diagnosis:: Hypertension ICD-10 I10 Resting Blood Pressure:: 121/85 [place] [employer] Hypertension Guidelines Outcomes/Goals: Able to verbalize/achieve optimal blood pressure <130/80, Incorporates diet changes & exercise for blood pressure control by DC and Other additional outcomes/goals Interventions/plan: Instruct on optimal blood pressure, hypertension & medications, Instruct on effects of sodium, alcohol, stress, exercise &hypertension and Other additional plan/interventions Tobacco Cessation Referral Smoking Cessation Referral:: No Individual Education/Counseling:: No Education Schedule Given:: Yes Psychosocial - Initial Assess VIsit Date of Eval: 01/12/23 (initial eval ) History of previous Mental disease:: No Target Goals Target Goals ISMA-Q SV Test Statements CAD is a disease of the arteries in the heart: True Examples of risk factors for heart disease: True Angina is chest pain or discomfort: True The benefits of resistance training include: True Eating more meat and dairy products: True Anti-platelet medications such as aspirin are important: I Don't Know The only effective way to manage stress: I Don't Know An exercise warm-up slowly increases heart rate: I Don't Know Prepared, processed foods usually have high sodium: I Don't Know Depression is common after a heart attack: I Don't Know The statin medications lower cholesterol: I Don't Know To control blood pressure, lower the amount of sodium: I Don't Know If someone gets chest discomfort during walking: False Transfats are partially hydrogenated vegetable oils: True Sleep apnea that is not treated increases the risk: False To control cholesterol, one should become a vegetarian: False Someone knows if he/she is exercising at the right level: False Diabetes cannot be prevented with exercise & health eating: True Stress is a large risk for heart attack: True A diet that can help lower blood pressure is rich in: True Total Score Total Correct Responses: 9 Self-Efficacy 6-Item Scale Initial Assessment: We would like to know how confident you are in doing certain activities. Please select your confidence level for: Fatigue Select Number: 4 Physical Discomfort or Pain Select Number: 3 Emotional Distress Select Number: 3 Other Symptoms or Health Problems Select Number: 3 Different Tasks and Activities Select Number: 3 Medication Select Number: 3 Total Score:: 3 Nutrition Survey Nutrition Survey Instructions Scoring Instructions Nutrition Survey Initial: Have you lost >10 lbs over the past 2 months without trying?: No Are you following a special diet at home for diabetes, low fat, or low salt?: No Are you interested in meeting with a dietitian for help understanding your diet?: No Do you eat less than 3 meals a day?: Yes Do you eat fatty meats (valdes, sausage, ribs, etc), fried foods, desserts, large amounts of salad dressings, margarine, butter, or cheese most days?: No Do you have food allergies? [Enter types in comment field]: No Do you eat in restaurants more than 3 times a week?: Yes Do you season food with salt, seasoning salt, or garlic salt?: Yes Do you used canned, boxed, frozen meals, or soups, seasoning packets?: No Total Score:: 3 Exercise - Final/Discharge Physician Prescribed Exercise Modalities: Treadmill, Rower, Airdyne, NuStep, SciFit and Lateral [employer] Program[employer] Frequency: 3x/week for 12 weeks [36 sessions] Intensity: 60-80% of age predicted maximum heart rate reserve Current METSs:: 3 Target Heart Rate:: 84-105 Nutrition - 30-Day Assessment Weight Mgt (Other Care) Height: 5 ft 10.87 in Weight:: 166 lb BMI: 23.2 Nutrition - 60-Day Assessment Weight Mgt (Other Care) Height: 5 ft 10.87 in Weight:: 166 lb BMI: 23.2 Core - Final Assessment Hypertension Resting Blood Pressure:: 121/85 [place] [employer] Hypertension Guidelines Core - 60-Day Assessment Hypertension Resting Blood Pressure:: 121/85 [place] [employer] Hypertension Guidelines Psychosocial - 30-Day Assess Target Goals Target Goals Psychosocial - 60-Day Assess Target Goals Target Goals Psychosocial - 90-Day Assess Target Goals Target Goals Psychosocial - Final Assessmen Target Goals Target Goals Nutrition - 90-Day Assessment Weight Mgt (Other Care) Height: 5 ft 10.87 in Weight:: 166 lb BMI: 23.2 Nutrition - Final Assessment Program Goals Patient has diagnosis of Hyperlipidemia (ICD E78)?: Yes Weight Mgt (Other Care) Height: 5 ft 10.87 in Weight:: 166 lb BMI: 23.2
[2023-01-12 13:51] VITALS: BP 121/85; BMI 23.2
[2023-01-12 13:54] VITALS: BMI 23.2
== END | disposition home or self-care (01) ==
LOC: CR 12:49
PROVIDERS: PCP Family Medicine Geriatric Medicine; Referring Provider Internal Medicine Cardiovascular Disease; Visit Provider Internal Medicine Cardiovascular Disease
DX: Z95.5 Presence of coronary angioplasty implant and graft (principal); I43 Cardiomyopathy in diseases classified elsewhere; E78.5 Hyperlipidemia, unspecified; I10 Essential (primary) hypertension; K21.9 Gastro-esophageal reflux disease without esophagitis; I25.10 Atherosclerotic heart disease of native coronary artery without angina pectoris; D30.02 Benign neoplasm of left kidney; D30.01 Benign neoplasm of right kidney; N40.0 Benign prostatic hyperplasia without lower urinary tract symptoms; R79.89 Other specified abnormal findings of blood chemistry; R60.9 Edema, unspecified; M79.7 Fibromyalgia; K64.9 Unspecified hemorrhoids; E03.9 Hypothyroidism, unspecified; J33.8 Other polyp of sinus; I49.1 Atrial premature depolarization; I49.3 Ventricular premature depolarization; R91.1 Solitary pulmonary nodule; R55 Syncope and collapse; Z79.890 Hormone replacement therapy; Z90.49 Acquired absence of other specified parts of digestive tract; Z95.1 Presence of aortocoronary bypass graft; Z98.890 Other specified postprocedural states; R06.02 Shortness of breath; R53.83 Other fatigue

== ENCOUNTER 2023-01-28 08:00 | Outpatient (RCR) | payer MEDICARE, SELFPAY ==
[2023-01-12 13:51] VITALS: BMI 23.2
== END 2023-01-29 23:59 ==
LOC: CR 08:00
PROVIDERS: PCP Family Medicine Geriatric Medicine; Referring Provider Internal Medicine Cardiovascular Disease; Visit Provider Internal Medicine Cardiovascular Disease
DX: I25.10 Atherosclerotic heart disease of native coronary artery without angina pectoris (principal); Z95.5 Presence of coronary angioplasty implant and graft
CPT/HCPCS: 93798

== ENCOUNTER → 2023-02-05 | Outpatient (CLI) | payer MEDICARE, SELFPAY ==
[2023-01-12 13:51] VITALS: BMI 23.2
== END | disposition home or self-care (01) ==
LOC: PSN 08:12
PROVIDERS: PCP Family Medicine Geriatric Medicine; Referring Provider Family Medicine Geriatric Medicine; Visit Provider Family Medicine Geriatric Medicine
DX: R68.83 Chills (without fever) (principal)
CPT/HCPCS: 87635; 87804; 87807; C9803

== ENCOUNTER → 2023-02-17 | Outpatient (CLI) | payer MEDICARE, SELFPAY ==
[2023-02-11 07:34] VITALS: BMI 24.4
== END | disposition home or self-care (01) ==
LOC: PSN 11:56
PROVIDERS: PCP Family Medicine Geriatric Medicine; Referring Provider Internal Medicine Cardiovascular Disease; Visit Provider Internal Medicine Cardiovascular Disease
DX: Z95.5 Presence of coronary angioplasty implant and graft (principal); Z95.1 Presence of aortocoronary bypass graft; I49.3 Ventricular premature depolarization; I49.1 Atrial premature depolarization
CPT/HCPCS: 93225; 93226

== ENCOUNTER 2023-02-25 08:00 | Outpatient (RCR) | payer MEDICARE, SELFPAY ==
[2023-01-12 13:51] VITALS: BMI 23.2
--- NOTE | 2023-02-11 07:28 | CR.ITP_ITS ---
Exercise - Initial Assessment Visit Session #:: 11 Nutrition - Initial Assessment Weight Mgt (Other Care) Height: 5 ft 10.87 in Weight:: 174 lb 8 oz BMI: 24.4 Psychosocial - Initial Assess Target Goals Target Goals Self-Efficacy 6-Item Scale 30-Day Re-eval Assessment: We would like to know how confident you are in doing certain activities. Please select your confidence level for: Fatigue Select Number: 4 Physical Discomfort or Pain Select Number: 3 Emotional Distress Select Number: 3 Other Symptoms or Health Problems Select Number: 3 Different Tasks and Activities Select Number: 3 Medication Select Number: 3 Total Score:: 3 Nutrition Survey Nutrition Survey Instructions Scoring Instructions Exercise - 30-day Assessment Visit Session #:: 11 Physician Prescribed Exercise Modalities: Treadmill, NuStep and Lateral Compliance Technician Frequency: 3x/week for 12 weeks [36 sessions] Intensity: 60-80% of age predicted maximum heart rate reserve Duration: 30 - 45 minutes Current METSs:: 3 Target Heart Rate:: 84-105 Current RPE:: 12 Maximum Excercise HR:: 84 Resting Blood Pressure: 150/80 Maximum Exercise Blood Pressure: 150/80 Current Physical Activity or Exercising minutes: SB to NSR freq PVC, vent qaudrigeminy, bigeminy, rare vent couplet Outcomes & Goals Goals:: Verbalizes understanding of THR, RPE & goal METS by session 6, Documents in home exercise log/reports 30 min aerobic 5 day/wk by DC, Demonstrates accurate pulse taking by DC and Other additional outcome/goals: see below Intervention & Plan Exercise Program Goals: Instruct on personal THR & RPE, Instruct on MET level & personal MET goal, Show patient to take own pulse /validate performance until accurate, Instruct on home exercise and Other additional plan/int 30-day Reassessments 30 day Reassessments:: Progressing Physical Activity Home Exercise Physical Activity - Home Exercise: Safe Exercise, Warm-up, Self-monitoring, Cool-Down, Home Exercise > 30 min Daily and Sitting Time <3 hours/daily Outcomes & Goals Outcomes/Goals: Demonstrates correct Warm-up/exercise Cool-Down (S3) if = 2.5 METs, Verbalizes symptoms of exercise intolerance by Session 3 (S3), Demonstrate safe equipment use (S3) & follows exercise prescrition (6) and Other: See below Intervention & Plan Plan/Intervention: Instruct warm-up & cool-down if exercising at > 2 METs, Instruct on symptoms of exercise intolerance & actions to take, Instruct & monitor on saf, Assess intial functional capacity & safety risk and Other See below 30-day Reassessments 30 day Reassessments:: Progressing Nutrition - 30-Day Assessment Program Goals Nutrition Program Goals Patient has diagnosis of Hyperlipidemia (ICD E78)?: Yes Visit Date of Eval: 02/11/23 Session #:: 11 Cholesterol/Lipids (Other Core Measures) Determine presence & major risk factors that modify LDL goal: Hypertension or hypertensive medication, Low HDL cholesterol <40 mg/dL*, Family history of premature CHD in Male < 55 years: female <65 yearsFa and Age men > 45 years; women >/= 55 years Outcomes/Goals: Pt IDs own risk factors & lifestyle modifications by Session 10, Verbalizes symptoms of angina & response by session 3., Pt independently manages and Other Additional Outcomes/Goals: Intervention/Plan: Advocate for lipid panel cholesterol medication if applicable, Instruct on personal lipid levels & lipid goals/NCEP guidelines, Instruct on cholesterol and Other additional plan/int 30-day Reassessments:: Progressing Diabetes (Other Core Measures) Diabetes Type: Not Applicable Weight Mgt (Other Care) Height: 5 ft 10.87 in Weight:: 174 lb 8 oz BMI: 24.4 Diagnosis Overweight/Obesity BMI> 30% ICD-10 E66: No Diagnosis High BMI/Morbid Obesity BMI> 35% ICD-10 Z68: No Outcomes/Goals: Pt sets, maintains & shows weight loss goal & trend during rehab and Other additional outcomes/goals Intervention/Plan: Instruct on ideal BMI & set weight loss goal w/patient, Assist pt to ID & incorporate diet changes for weight loss by S9, Refer to Structured Weight Loss program as appropriate, Encourage goal of using 250- 300dcal per session for weight loss and Other additional plan/interventions 30 day Reassessments:: Progressing Healthy Eating Habits Will attend diet classes:: Yes Outcomes/Goals:: Consume diet rich in vegs,fruits,whole grain/high fiber,fish,lean meat, Limit sat/trans fats,cholesterol & added salts & sugars and Other additional outcome/goals: Intervention/Plan:: Assess current eating habits and Other Additional plan/inter ventions 30-day Reassessments:: Progressing Education Gave educational materials for:: Signs & symptoms of hypoglycemia, Signs & symptoms of hyperglycemia, Relate diabetes to coronary artery disease and Healthy eating Nutrition - 60-Day Assessment Weight Mgt (Other Care) Height: 5 ft 10.87 in Weight:: 174 lb 8 oz BMI: 24.4 Core - 30-Day Assessment Visit Date of Eval: 02/11/23 Session #:: 11 Medication Compliance Preventative Medication(s):: Aspirin, Statin/lipid and Beta jack H/O mental health issues: depression, anxiety, or addiction?: No Doesn?t believe in the benefits of treatment?: No Believes medications are unnecessary or harmful?: No Has a concern about medication side effects?: No Expresses concern over the cost of medications?: No Outcomes/Goals: Verbalizes medications,desired effect & common side effects @ DC, Pt self-reports following medication regimen, Keeps card in wallet w/medications listed by DC and Other additional outcome/goals: Interventions/plans: Instruct on medication effects & side effects, Review medication list w/patient every two weeks, Instruct importance of taking meds as ordered & assist problem solving and Other additional 30-day Reassessments:: Progressing Tobacco Use Tobacco Use: Non-smoker Hypertension Hypertension Diagnosis:: Hypertension ICD-10 I10 Resting Blood Pressure:: 150/80 [place] [employer] Hypertension Guidelines Peak Exercise Blood Pressure:: 150/80 Outcomes/Goals: Able to verbalize/achieve optimal blood pressure <130/80, Incorporates diet changes & exercise for blood pressure control by DC and Other additional outcomes/goals Interventions/plan: Instruct on optimal blood pressure, hypertension & medications, Instruct on effects of sodium, alcohol, stress, exercise &hypertension and Other additional plan/interventions 30 day Reassessments:: Progressing Tobacco Cessation Referral Smoking Cessation Referral:: No Individual Education/Counseling:: No Education Schedule Given:: Yes Psychosocial - 30-Day Assess VIsit Date of Eval: 02/11/23 Session #:: 11 History of previous Mental disease:: No Target Goals Target Goals Psychosocial - 60-Day Assess Target Goals Target Goals Psychosocial - 90-Day Assess Target Goals Target Goals Psychosocial - Final Assessmen Target Goals Target Goals Nutrition - 90-Day Assessment Weight Mgt (Other Care) Height: 5 ft 10.87 in Weight:: 174 lb 8 oz BMI: 24.4 Nutrition - Final Assessment Weight Mgt (Other Care) Height: 5 ft 10.87 in Weight:: 174 lb 8 oz BMI: 24.4
[2023-02-11 07:34] VITALS: BP 150/80; BMI 24.4
== END 2023-02-28 23:59 ==
LOC: CR 08:00
PROVIDERS: PCP Family Medicine Geriatric Medicine; Referring Provider Internal Medicine Cardiovascular Disease; Visit Provider Internal Medicine Cardiovascular Disease
DX: Z95.5 Presence of coronary angioplasty implant and graft (principal); I25.10 Atherosclerotic heart disease of native coronary artery without angina pectoris
CPT/HCPCS: 93798

== ENCOUNTER 2023-03-30 08:00 | Outpatient (RCR) | payer MEDICARE, SELFPAY ==
[2023-02-11 07:34] VITALS: BMI 24.4
[2023-03-01 00:45] VITALS: BP 150/80
--- NOTE | 2023-03-13 08:12 | CR.ITP_ITS ---
Nutrition - Initial Assessment Weight Mgt (Other Care) Height: 5 ft 10.87 in Weight:: 171 lb BMI: 23.9 Psychosocial - Initial Assess Target Goals Target Goals Self-Efficacy 6-Item Scale 60-Day Re-eval Assessment: We would like to know how confident you are in doing certain activities. Please select your confidence level for: Fatigue Select Number: 4 Physical Discomfort or Pain Select Number: 3 Emotional Distress Select Number: 3 Other Symptoms or Health Problems Select Number: 3 Different Tasks and Activities Select Number: 3 Medication Select Number: 3 Total Score:: 3 Nutrition Survey Nutrition Survey Instructions Scoring Instructions Exercise - 60-day Assessment Visit Date of Eval: 03/13/23 Session #:: 22 Physician Prescribed Exercise Modalities: Treadmill, Rower and NuStep Frequency: 3x/week for 12 weeks [36 sessions] Intensity: 60-80% of age predicted maximum heart rate reserve Current METSs:: 5 Target Heart Rate:: 105-119 Current RPE:: 12-13 Maximum Excercise HR:: 87 Resting Blood Pressure: 142/80 Maximum Exercise Blood Pressure: 142/80 EKG Type: SB to NSR w/freq PVC, vent bigeminy, trigeminy, and quadrigeminy. Rare vent Outcomes & Goals Goals:: Verbalizes understanding of THR, RPE & goal METS by session 6, Documents in home exercise log/reports 30 min aerobic 5 day/wk by DC, Demonstrates accurate pulse taking by DC and Other additional outcome/goals: see below Intervention & Plan Exercise Program Goals: Instruct on personal THR & RPE, Instruct on MET level & personal MET goal, Show patient to take own pulse /validate performance until accurate, Instruct on home exercise and Other additional plan/int 30-day Reassessments 30 day Reassessments:: Met Physical Activity Home Exercise Physical Activity - Home Exercise: Safe Exercise, Warm-up, Self-monitoring, Cool-Down, Home Exercise > 30 min Daily and Sitting Time <3 hours/daily Outcomes & Goals Outcomes/Goals: Demonstrates correct Warm-up/exercise Cool-Down (S3) if = 2.5 METs, Verbalizes symptoms of exercise intolerance by Session 3 (S3), Demonstrate safe equipment use (S3) & follows exercise prescrition (6) and Other: See below Intervention & Plan Plan/Intervention: Instruct warm-up & cool-down if exercising at > 2 METs, Instruct on symptoms of exercise intolerance & actions to take, Instruct & monitor on saf, Assess intial functional capacity & safety risk and Other See below 30-day Reassessments 30 day Reassessments:: Met Nutrition - 30-Day Assessment Weight Mgt (Other Care) Height: 5 ft 10.87 in Weight:: 171 lb BMI: 23.9 Nutrition - 60-Day Assessment Program Goals Nutrition Program Goals Patient has diagnosis of Hyperlipidemia (ICD E78)?: Yes Visit Date of Eval: 03/13/23 Session #:: 22 Cholesterol/Lipids (Other Core Measures) Determine presence & major risk factors that modify LDL goal: Hypertension or hypertensive medication, Low HDL cholesterol <40 mg/dL*, Family history of premature CHD in Male < 55 years: female <65 yearsFa and Age men > 45 years; women >/= 55 years Outcomes/Goals: Pt IDs own risk factors & lifestyle modifications by Session 10, Verbalizes symptoms of angina & response by session 3., Pt independently manages and Other Additional Outcomes/Goals: Intervention/Plan: Advocate for lipid panel cholesterol medication if applicable, Instruct on personal lipid levels & lipid goals/NCEP guidelines, Instruct on cholesterol and Other additional plan/int 30-day Reassessments:: Met Diabetes (Other Core Measures) Diabetes Type: Not Applicable Weight Mgt (Other Care) Height: 5 ft 10.87 in Weight:: 171 lb BMI: 23.9 Diagnosis Overweight/Obesity BMI> 30% ICD-10 E66: No Diagnosis High BMI/Morbid Obesity BMI> 35% ICD-10 Z68: No Outcomes/Goals: Pt sets, maintains & shows weight loss goal & trend during rehab and Other additional outcomes/goals Intervention/Plan: Instruct on ideal BMI & set weight loss goal w/patient, Assist pt to ID & incorporate diet changes for weight loss by S9, Refer to Structured Weight Loss program as appropriate, Encourage goal of using 250- 300dcal per session for weight loss and Other additional plan/interventions 30 day Reassessments:: Met Healthy Eating Habits Will attend diet classes:: Yes Outcomes/Goals:: Consume diet rich in vegs,fruits,whole grain/high fiber,fish,lean meat, Limit sat/trans fats,cholesterol & added salts & sugars and Other additional outcome/goals: Intervention/Plan:: Assess current eating habits and Other Additional plan/interventions 30-day Reassessments:: Met Education Gave educational materials for:: Signs & symptoms of hypoglycemia, Signs & symptoms of hyperglycemia, Relate diabetes to coronary artery disease and Healthy eating Core - 60-Day Assessment Visit Date of Eval: 03/13/23 Session #:: 22 Medication Compliance Preventative Medication(s):: Aspirin, Statin/lipid and Beta jack H/O mental health issues: depression, anxiety, or addiction?: No Doesn?t believe in the benefits of treatment?: No Believes medications are unnecessary or harmful?: No Has a concern about medication side effects?: No Expresses concern over the cost of medications?: No Outcomes/Goals: Verbalizes medications,desired effect & common side effects @ DC, Pt self-reports following medication regimen, Keeps card in wallet w/medications listed by DC and Other additional outcome/goals: Interventions/plans: Instruct on medication effects & side effects, Review medication list w/patient every two weeks, Instruct importance of taking meds as ordered & assist problem solving and Other additional 30-day Reassessments:: Met Tobacco Use Tobacco Use: Non-smoker Hypertension Hypertension Diagnosis:: Hypertension ICD-10 I10 [place] [employer] Hypertension Guidelines Outcomes/Goals: Able to verbalize/achieve optimal blood pressure <130/80, Incorporates diet changes & exercise for blood pressure control by DC and Other additional outcomes/goals Interventions/plan: Instruct on optimal blood pressure, hypertension & medications, Instruct on effects of sodium, alcohol, stress, exercise &hypertension and Other additional plan/interventions 30 day Reassessments:: Progressing Reassessment Notes & Comments:: pt encouraged to take his meds Tobacco Cessation Referral Smoking Cessation Referral:: No Individual Education/Counseling:: No Education Schedule Given:: Yes Psychosocial - 30-Day Assess Target Goals Target Goals Psychosocial - 60-Day Assess VIsit Date of Eval: 03/13/23 Session #:: 22 History of previous Mental disease:: No Target Goals Target Goals 30-day Reassessments: 30 day Reassessments:: Met Psychosocial - 90-Day Assess Target Goals Target Goals Psychosocial - Final Assessmen Target Goals Target Goals Nutrition - 90-Day Assessment Weight Mgt (Other Care) Height: 5 ft 10.87 in Weight:: 171 lb BMI: 23.9 Nutrition - Final Assessment Weight Mgt (Other Care) Height: 5 ft 10.87 in Weight:: 171 lb BMI: 23.9
[2023-03-13 08:22] VITALS: BP 142/80; BMI 23.9
== END 2023-03-31 23:59 ==
LOC: CR 08:00
PROVIDERS: PCP Family Medicine Geriatric Medicine; Referring Provider Internal Medicine Cardiovascular Disease; Visit Provider Internal Medicine Cardiovascular Disease
DX: I25.10 Atherosclerotic heart disease of native coronary artery without angina pectoris (principal); Z95.5 Presence of coronary angioplasty implant and graft
CPT/HCPCS: 93798

== ENCOUNTER → 2023-04-08 | Outpatient (CLI) | payer MEDICARE, SELFPAY ==
[2023-03-13 08:22] VITALS: BMI 23.9
[2023-04-08 08:37] LABS: Anion Gap 6 (5-15); BUN 30 mg/dL (7-18); BUN/Creat Ratio 19.1 RATIO (10-20); Calcium,Total 9.1 mg/dL (8.5-10.1); Chloride 110 mmol/L (98-107); Creatinine, Serum 1.57 mg/dL (0.70-1.30); EST Glomerular Filtration Rate 45 mL/min (>60); Est Glom Filt Rate - Afr Amer 55 mL/min (>60); Glucose 162 mg/dL (74-106); Magnesium 2.4 mg/dL (1.6-2.6); Potassium 4.6 mmol/L (3.5-5.1); Sodium Level 142 mmol/L (136-145)
[2023-04-08 08:37] LABS: AST(SGOT) 12 U/L (15-37); Alanine Aminotransfer ALT/SGPT 15 U/L (16-61); Albumin, Serum 3.8 g/dL (3.2-5.0); Alkaline Phosphatase 66 U/L (45-117); Bilirubin, Direct 0.24 mg/dL (0.00-0.30); Cholesterol 107 mg/dL (200); Globulin 2.9 g/dL (2.2-4.2); High Density Lipoprotein 45 mg/dL; Protein, Total 6.7 g/dL (6.4-8.2); Triglycerides 112 mg/dL; Very Low Density Lipoprotein 22 mg/dL (5-40)
== END | disposition home or self-care (01) ==
LOC: LAB 07:17
PROVIDERS: Internal Medicine Cardiovascular Disease; PCP Family Medicine Geriatric Medicine; Referring Provider Nurse Practitioner Gerontology; Visit Provider Nurse Practitioner Gerontology
DX: Z95.5 Presence of coronary angioplasty implant and graft (principal); I43 Cardiomyopathy in diseases classified elsewhere; I12.9 Hypertensive chronic kidney disease with stage 1 through stage 4 chronic kidney disease, or unspecified chronic kidney disease; N18.9 Chronic kidney disease, unspecified; I25.10 Atherosclerotic heart disease of native coronary artery without angina pectoris; E78.5 Hyperlipidemia, unspecified; I49.1 Atrial premature depolarization; Z95.1 Presence of aortocoronary bypass graft
CPT/HCPCS: 36415; 80048; 80061; 80076; 83735

== ENCOUNTER 2023-04-20 08:00 | Outpatient (RCR) | payer MEDICARE, SELFPAY ==
[2023-03-13 08:22] VITALS: BMI 23.9
[2023-04-01 00:23] VITALS: BP 142/80; BP 150/80
--- NOTE | 2023-04-13 08:07 | PCM.CR.ITP ---
Nutrition - Initial Assessment Weight Mgt (Other Care) Height: 5 ft 10.87 in Weight:: 173 lb 8 oz BMI: 24.3 Psychosocial - Initial Assess Target Goals Target Goals Self-Efficacy 6-Item Scale 90-Day Re-eval Assessment: We would like to know how confident you are in doing certain activities. Please select your confidence level for: Fatigue Select Number: 4 Physical Discomfort or Pain Select Number: 3 Emotional Distress Select Number: 3 Other Symptoms or Health Problems Select Number: 3 Different Tasks and Activities Select Number: 3 Medication Select Number: 3 Total Score:: 3 Nutrition Survey Nutrition Survey Instructions Scoring Instructions Exercise - 90-day Assessment Visit Date of Eval: 04/13/23 Session #:: 31 Physician Prescribed Exercise Modalities: Treadmill, NuStep and Lateral Scribner Frequency: 3x/week for 12 weeks [36 sessions] Intensity: 60-80% of age predicted maximum heart rate reserve Duration: 30 - 45 minutes Current METSs:: 5.5 Target Heart Rate:: 105-119 Current RPE:: 12-13 Maximum Excercise HR:: 120 Resting Blood Pressure: 124/78 Maximum Exercise Blood Pressure: 146/70 EKG Type: NSR to ST w/1st degree AV block, intermittent T wave inversion, rare pac, f Outcomes & Goals Goals:: Verbalizes understanding of THR, RPE & goal METS by session 6, Documents in home exercise log/reports 30 min aerobic 5 day/wk by DC, Demonstrates accurate pulse taking by DC and Other additional outcome/goals: see below Intervention & Plan Exercise Program Goals: Instruct on personal THR & RPE, Instruct on MET level & personal MET goal, Show patient to take own pulse /validate performance until accurate, Instruct on home exercise and Other additional plan/int 30-day Reassessments 30 day Reassessments:: Met Physical Activity Home Exercise Physical Activity - Home Exercise: Safe Exercise, Warm-up, Self-monitoring, Cool-Down, Home Exercise > 30 min Daily and Sitting Time <3 hours/daily Outcomes & Goals Outcomes/Goals: Demonstrates correct Warm-up/exercise Cool-Down (S3) if = 2.5 METs, Verbalizes symptoms of exercise intolerance by Session 3 (S3), Demonstrate safe equipment use (S3) & follows exercise prescrition (6) and Other: See below Intervention & Plan Plan/Intervention: Instruct warm-up & cool-down if exercising at > 2 METs, Instruct on symptoms of exercise intolerance & actions to take, Instruct & monitor on saf, Assess intial functional capacity & safety risk and Other See below 30-day Reassessments 30 day Reassessments:: Met Nutrition - 30-Day Assessment Weight Mgt (Other Care) Height: 5 ft 10.87 in Weight:: 173 lb 8 oz BMI: 24.3 Nutrition - 60-Day Assessment Weight Mgt (Other Care) Height: 5 ft 10.87 in Weight:: 173 lb 8 oz BMI: 24.3 Core - 90 Day Assessment Visit Date of Eval: 04/13/23 Session #:: 31 Medication Compliance Preventative Medication(s):: Aspirin, Statin/lipid and Beta jack H/O mental health issues: depression, anxiety, or addiction?: No Doesn?t believe in the benefits of treatment?: No Believes medications are unnecessary or harmful?: No Has a concern about medication side effects?: No Expresses concern over the cost of medications?: No Outcomes/Goals: Verbalizes medications,desired effect & common side effects @ DC, Pt self-reports following medication regimen, Keeps card in wallet w/medications listed by DC and Other additional outcome/goals: Interventions/plans: Instruct on medication effects & side effects, Review medication list w/patient every two weeks, Instruct importance of taking meds as ordered & assist problem solving and Other additional 30-day Reassessments:: Met Tobacco Use Tobacco Use: Non-smoker Hypertension Hypertension Diagnosis:: Hypertension ICD-10 I10 Resting Blood Pressure:: 124/78 [place] [employer] Hypertension Guidelines Peak Exercise Blood Pressure:: 140/70 Outcomes/Goals: Able to verbalize/achieve optimal blood pressure <130/80, Incorporates diet changes & exercise for blood pressure control by DC and Other additional outcomes/goals Interventions/plan: Instruct on optimal blood pressure, hypertension & medications, Instruct on effects of sodium, alcohol, stress, exercise &hypertension and Other additional plan/interventions 30 day Reassessments:: Met Tobacco Cessation Referral Smoking Cessation Referral:: No Individual Education/Counseling:: No Education Schedule Given:: Yes Psychosocial - 30-Day Assess Target Goals Target Goals Psychosocial - 60-Day Assess Target Goals Target Goals Psychosocial - 90-Day Assess VIsit Date of Eval: 04/13/23 Session #:: 31 History of previous Mental disease:: No Target Goals Target Goals 30-day Reassessments: 30 day Reassessments:: Met Psychosocial - Final Assessmen Target Goals Target Goals Nutrition - 90-Day Assessment Program Goals Nutrition Program Goals Patient has diagnosis of Hyperlipidemia (ICD E78)?: Yes Visit Date of Eval: 04/13/23 Session #:: 31 Cholesterol/Lipids (Other Core Measures) Determine presence & major risk factors that modify LDL goal: Hypertension or hypertensive medication, Low HDL cholesterol <40 mg/dL*, Family history of premature CHD in Male < 55 years: female <65 yearsFa and Age men > 45 years; women >/= 55 years Outcomes/Goals: Pt IDs own risk factors & lifestyle modifications by Session 10, Verbalizes symptoms of angina & response by session 3., Pt independently manages and Other Additional Outcomes/Goals: Intervention/Plan: Advocate for lipid panel cholesterol medication if applicable, Instruct on personal lipid levels & lipid goals/NCEP guidelines, Instruct on cholesterol and Other additional plan/int 30-day Reassessments:: Met Diabetes (Other Core Measures) Diabetes Type: Not Applicable Weight Mgt (Other Care) Height: 5 ft 10.87 in Weight:: 173 lb 8 oz BMI: 24.3 Diagnosis Overweight/Obesity BMI> 30% ICD-10 E66: No Diagnosis High BMI/Morbid Obesity BMI> 35% ICD-10 Z68: No Outcomes/Goals: Pt sets, maintains & shows weight loss goal & trend during rehab and Other additional outcomes/goals Intervention/Plan: Instruct on ideal BMI & set weight loss goal w/patient, Assist pt to ID & incorporate diet changes for weight loss by S9, Refer to Structured Weight Loss program as appropriate, Encourage goal of using 250-300dcal per session for weight loss and Other additional plan/interventions 30 day Reassessments:: Met Healthy Eating Habits Will attend diet classes:: Yes Outcomes/Goals:: Consume diet rich in vegs,fruits,whole grain/high fiber,fish,lean meat, Limit sat/trans fats,cholesterol & added salts & sugars and Other additional outcome/goals: Intervention/Plan:: Assess current eating habits and Other Additional plan/interventions 30-day Reassessments:: Met Education Gave educational materials for:: Signs & symptoms of hypoglycemia, Signs & symptoms of hyperglycemia, Relate diabetes to coronary artery disease and Healthy eating Nutrition - Final Assessment Weight Mgt (Other Care) Height: 5 ft 10.87 in Weight:: 173 lb 8 oz BMI: 24.3
[2023-04-13 08:14] VITALS: BP 124/78; BMI 24.3
== END 2023-04-30 23:59 ==
LOC: CR 08:00
PROVIDERS: PCP Family Medicine Geriatric Medicine; Referring Provider Internal Medicine Cardiovascular Disease; Visit Provider Internal Medicine Cardiovascular Disease
DX: I25.10 Atherosclerotic heart disease of native coronary artery without angina pectoris (principal); Z95.5 Presence of coronary angioplasty implant and graft
CPT/HCPCS: 93798

== ENCOUNTER → 2023-05-04 | Outpatient (CLI) | payer MEDICARE, SELFPAY ==
[2023-04-13 08:14] VITALS: BMI 24.3
[2023-05-04 12:34] LABS: Absolute Lymphocyte Count 1.05 X10^3/uL (0.83-4.51); Absolute Neutrophil Count 5.1 X10^3/uL (2.0-7.7); Basophil# 0.04 X10^3/uL; Basophil% 0.6 % (0-1); Eosinophil# 0.25 X10^3/uL; Eosinophils% 3.6 % (0-5); Hematocrit 49.3 % (40-54); Hemoglobin 15.8 g/dL (13.0-16.5); Lymphocyte # 1.05 X10^3/ul (0.83-4.51); Lymphocyte % 15.1 % (19-41); Mean Corpuscular Hgb 31.5 pg (27.0-32.0); Mean Corpuscular Volume 98.2 fL (80-94); Mean Platelet Vol. 9.3 fl (6.2-12.0); Monocyte# 0.52 X10^3/uL; Monocyte% 7.5 % (0-10); NRBC Flagged by Analyzer 0 % (0-5); Neutrophil # 5.06 X10^3/uL (2.7-7.7); Neutrophil % 72.8 % (47-70); Platelet Count 297 K/mm3 (150-450); RBC Distribution Width CV 12.6 % (11.6-14.6); RBC Distribution Width SD 45.4 fl (35.1-43.9); Red Blood Count 5.02 M/mm3 (4.6-6.2)
[2023-05-04 13:34] LABS: ALB/GLOB Ratio 0.9 RATIO (0.9-2.4); AST(SGOT) 13 U/L (15-37); Alanine Aminotransfer ALT/SGPT 21 U/L (16-61); Albumin, Serum 3.2 g/dL (3.2-5.0); Alkaline Phosphatase 64 U/L (45-117); Anion Gap 7 (5-15); BUN 27 mg/dL (7-18); BUN/Creat Ratio 20.3 RATIO (10-20); Chloride 111 mmol/L (98-107); Creatinine, Serum 1.33 mg/dL (0.70-1.30); EST Glomerular Filtration Rate 55 mL/min (>60); Est Glom Filt Rate - Afr Amer 66 mL/min (>60); Globulin 3.4 g/dL (2.2-4.2); Glucose 104 mg/dL (74-106); Potassium 4.3 mmol/L (3.5-5.1); Protein, Total 6.6 g/dL (6.4-8.2); Sodium Level 143 mmol/L (136-145); Thyroid Stim Hormone (TSH) 0.98 uIU/mL (0.358-3.74)
== END | disposition home or self-care (01) ==
LOC: POLAB3 10:41
PROVIDERS: PCP Family Medicine Geriatric Medicine; Visit Provider Family Medicine Geriatric Medicine
DX: R53.83 Other fatigue (principal)
CPT/HCPCS: 36415; 80053; 84443; 85025

== ENCOUNTER → 2023-05-06 | Outpatient (CLI) | payer MEDICARE, SELFPAY ==
[2023-04-13 08:14] VITALS: BMI 24.3
== END | disposition home or self-care (01) ==
LOC: PSN 08:09
PROVIDERS: PCP Family Medicine Geriatric Medicine; Referring Provider Family Medicine Geriatric Medicine; Visit Provider Family Medicine Geriatric Medicine
DX: R68.83 Chills (without fever) (principal)
CPT/HCPCS: 87635; 87804; 87807; C9803

== ENCOUNTER 2023-05-20 08:40 | Inpatient (IN) | payer MEDICARE, SELFPAY ==
[2023-04-13 08:14] VITALS: BMI 24.3
[2023-05-20] VITALS (11 sets, daily range): BP systolic 122–148; BP diastolic 81–103; PULSE 73–101; RESP 16–18; TEMP 36.6–37.1; O2SAT 93–96; BMI 24.8; BMI 21.4
--- NOTE | 2023-05-20 08:42 | EKG12_ITS ---
Test Reason : Blood Pressure : / mmHG Vent. 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
--- NOTE | 2023-05-20 08:42 | CT_ITS ---
STUDY: CT HEAD STROKE PROTOCOL W/O CONTRAST INJECTION REASON FOR EXAM: Male, 82 years old. Neuro deficit, acute, stroke suspected RADIATION DOSAGE (If Supplied By Facility): CTDIvol = ( 44.99 ) mGy, DLP = ( 880.47 ) mGycm TECHNIQUE: Transaxial CT imaging of the brain was performed without administration of intravenous contrast material. Individualized dose optimization techniques were used for this CT. COMPARISON: Comparison is made with prior study dated October 01, 2015. FINDINGS: Normal soft tissue structures. Normal calvarium. There is mild cerebral atrophy with widening of the extra-axial spaces and ventricular dilatation. There are areas of decreased attenuation within the white matter tracts of the supratentorial brain, consistent with microvascular disease changes. 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 Tiny lacuna in the right thalamus. Normal brainstem. There is mild cerebellar atrophy. There is no intracranial hemorrhage. There are no findings of an acute ischemic infarction. Mild mucosal thickening of the ethmoid sinuses bilaterally. ASPECT score: 8 CT/STROKE Brain/Head without Cont IMPRESSION: Chronic involutional changes of the brain. N.B. : The above Results were Read Back by Charanjit Smith MD to [facility]l Cadena and understanding confirmed on 05/20/2023 09:01:17 (ET). Electronically Signed: Charanjit Smith MD at 9:03 EST ,
--- NOTE | 2023-05-20 08:42 | CT_ITS ---
We are attempting to reach an attending provider to discuss findings. An addendum with communication details will be sent when the communication is complete. STUDY: CTA HEAD AND NECK WITH CONTRAST REASON FOR EXAM: Male, 82 years old. Neuro deficit, acute, stroke suspected RADIATION DOSAGE (If Supplied By Facility): CTDIvol = ( 23.75 ) mGy, DLP = ( 748.20 ) mGycm TECHNIQUE: CT angiography was performed with a multi-detector CT scanner. Data acquisition was obtained from the skull base through the vertex following intravenous administration of IV 100mL [id number]-370. MIP images were reconstructed from the axial data set. Post-processing of the angiographic images was performed, with multiplanar reformation and 3D reconstruction. Individualized dose optimization techniques were used for this CT. COMPARISON: Comparison is made with prior examination dated October 01, 2015. FINDINGS: Normal bilateral petrous carotid arteries. There is calcified plaque formation of the right cavernous carotid artery, without a cross-sectional luminal stenosis. There is calcified plaque formation of the left cavernous carotid artery, without a cross-sectional luminal stenosis. Normal right A1 segments of the anterior cerebral artery. Normal left A1 segments of the anterior cerebral artery. Normal intact anterior communicating artery (ACOM). Normal bilateral A2 segments of the anterior cerebral arteries. Normal right M1 and M2 segments of the middle cerebral arteries, with a normal M1 bifurcation. Normal left M1 and M2 segments of the middle cerebral arteries, with a normal M1 bifurcation. Normal right posterior communicating artery (PCOM). Normal left posterior communicating artery (PCOM). Normal bilateral vertebral arteries. Normal basilar artery with a normal basilar bifurcation. The visualized bilateral superior cerebellar (SCA) arteries are normal. Normal bilateral P1, P2 and visualized P3 segments of the posterior cerebral arteries. There is no demonstrated aneurysm of the [place]. AORTIC ARCH: There is a mild degree of atherosclerotic calcific plaque formation of the aortic arch and great vessels arising from the aortic arch, without a hemodynamically significant stenosis. There is a bovine origin of the great vessels with a common origin of the brachiocephalic and left common carotid artery. Normal origin of the left subclavian artery. RIGHT CAROTID ARTERIES: Normal right common carotid artery (CCA). Normal right common carotid bulb. There is mild atherosclerotic plaque formation of the origin of the right internal carotid artery with less than 50% cross sectional diameter stenosis. Normal visualized cervical portion of the right internal carotid artery. Normal origin of the right external carotid artery (ECA). LEFT CAROTID ARTERIES: Normal left common carotid artery (CCA). Normal left common carotid bulb. There is moderate atherosclerotic plaque formation of the origin of the left internal carotid artery with an estimated stenosis of 50-69% stenosis. Normal visualized cervical portion of the left internal carotid artery. Normal origin of the left external carotid artery (ECA). VERTEBRAL ARTERIES: Normal bilateral vertebral arteries. CT/STROKE CTA Head AND Neck W/Con IMPRESSION: Atherosclerotic calcific plaques at the origin of the left internal carotid artery causing between 50 and 69% stenosis. Mild calcific plaque at the origin of the right internal carotid artery causing less than 50% stenosis. Electronically Signed: Charanjit Smith MD at 9:08 EST ,
[2023-05-20 09:03] LABS: Absolute Lymphocyte Count 0.84 X10^3/uL (0.83-4.51); Absolute Neutrophil Count 7.2 X10^3/uL (2.0-7.7); Basophil# 0.05 X10^3/uL; Basophil% 0.6 % (0-1); Eosinophil# 0.09 X10^3/uL; Hematocrit 46.3 % (40-54); Hemoglobin 15.2 g/dL (13.0-16.5); Lymphocyte # 0.84 X10^3/ul (0.83-4.51); Lymphocyte % 9.3 % (19-41); Mean Corp Hgb Conc 32.8 g/dL (32-36); Mean Corpuscular Hgb 31.3 pg (27.0-32.0); Mean Corpuscular Volume 95.3 fL (80-94); Mean Platelet Vol. 9.3 fl (6.2-12.0); Monocyte# 0.81 X10^3/uL; Monocyte% 8.9 % (0-10); NRBC Flagged by Analyzer 0 % (0-5); Neutrophil # 7.22 X10^3/uL (2.7-7.7); Neutrophil % 79.6 % (47-70); Platelet Count 265 K/mm3 (150-450); RBC Distribution Width CV 12.8 % (11.6-14.6); RBC Distribution Width SD 44.9 fl (35.1-43.9); Red Blood Count 4.86 M/mm3 (4.6-6.2); White Blood Count 9.1 K/mm3 (4.4-11.0)
--- NOTE | 2023-05-20 09:03 | ED.VIS.STROK ---
HPI History of Present Illness Chief Complaint: Stroke Alert Informant: patient, family and EMS Narrative Narrative: 82-year-old male presenting to the emergency room with a chief complaint of strokelike symptoms. Reportedly last seen well last evening at 1900 hrs. by his daughter who brought him food. Patient states that he has been twitching and shaking intermittently and has bruised his tongue. Daughter noticed difficulty speaking today. Patient has history of coronary artery disease and atrial fibrillation. He had a stent to his LAD in January 05, 2023. Patient denies any change in vision arm or leg symptoms. He is not on a blood thinner other than aspirin. [facility] Medical History Acid reflux Atherosclerotic heart disease of [place] coronary artery without angina pectoris 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 [place] BPH (benign prostatic hyperplasia) CAD (coronary artery disease) Cardiomyopathy in other diseases classified elsewhere D-dimer, elevated DDD (degenerative disc disease) Dyspnea on exertion Edema Essential hypertension Fibromyalgia Hemorrhoid HTN (hypertension) Hyperlipidemia Hypothyroid Nasal sinus polyp Postoperative atrial fibrillation Premature atrial contractions Premature ventricular contraction Pulmonary nodule Syncope White coat syndrome with hypertension Home Medications aspirin 81 mg chewable tablet 81 mg PO DAILY HEART HEALTH 02/22/21 [History Last Taken 05/20/23] pantoprazole 40 mg tablet,delayed release 40 mg PO DAILY reflux 30 days #30 tabs 03/12/21 [Rx Last Taken 05/20/23] cholecalciferol (vitamin D3) 25 mcg (1,000 unit) capsule 25 mcg PO DAILY vitamin 12/25/21 [History Last Taken 05/20/23] levothyroxine 75 mcg tablet 88 mcg PO DAILY@0600 thyroid 06/26/22 [History Last Taken 05/20/23] furosemide 20 mg tablet (Lasix) 20 mg PO DAILY PRN edema, sob, weight gain #60 tabs 11/18/22 [Rx Last Taken Unknown] amlodipine 2.5 mg tablet 2.5 mg PO DAILY #60 tabs 01/05/23 [Rx Last Taken 05/20/23] clopidogrel 75 mg tablet 75 mg PO DAILY #30 tabs 01/05/23 [Rx Last Taken 05/20/23] blood pressure monitor #1 ea 01/15/23 [Rx Last Taken Unknown] evolocumab 140 mg/mL subcutaneous pen injector (Essie WiltonClick) 140 mg subcut Q2W cholesterol #2 mL 01/15/23 [Rx Last Taken 05/13/23] ezetimibe 10 mg tablet (Zetia) 10 mg PO DAILY #30 tabs 01/15/23 [Rx Last Taken 05/20/23] metoprolol tartrate 50 mg tablet 50 mg PO BID blood pressure #60 tabs 02/24/23 [Rx Last Taken 05/20/23] Allergy/AdvReac Type Severity Reaction Status Date / Time erythromycin base Allergy Hives Verified 05/20/23 09:04 amoxicillin [From Augmentin] AdvReac Severe Itching Verified 05/20/23 09:04 atorvastatin AdvReac Severe myalgias Verified 05/20/23 09:04 clavulanic acid AdvReac Severe Itching Verified 04/15/23 15:28 [From Augmentin] fenofibrate [From Tricor] AdvReac Severe myalgias Verified 05/20/23 09:04 levofloxacin [From Levaquin] AdvReac Unknown Unknown Verified 05/20/23 09:04 Family History Father CVA (cerebral vascular accident) Hypertension Heart disease Mother CAD (coronary artery disease) Brother Hypertension Brother CAD (coronary artery disease) Hypertension Sister Hypertension Sister Patent foramen ovale Sister Hypertension Lung cancer Other Dyspnea on exertion Surgical History H/O hemorrhoidectomy History of back surgery History of cholecystectomy History of coronary artery bypass graft x 3 (~02/26/21) History of kidney surgery History of placement of stent in LAD coronary artery (01/05/23) History of radiofrequency ablation procedure for cardiac arrhythmia (~10/2002) Hx of appendectomy Social History household members: none Smoking Status: Never smoker alcohol intake: never substance use type: does not use ROS ROS ED Constitutional Constitutional ED: Denies chills, fever(s) or weight loss Eyes Eyes: Denies change in vision or diplopia ENT ENT ED: Denies ear pain, rhinorrhea or sore throat Cardiovascular Cardiovascular: Denies chest pain, orthopnea, palpitations or racing heartbeat Respiratory/Chest Respiratory/Chest: Denies cough, dyspnea or orthopnea Gastrointestinal Gastrointestinal: Denies abdominal pain, diarrhea, nausea or vomiting Genitourinary Genitourinary ED: Denies dysuria, hematuria or urinary frequency Musculoskeletal Musculoskeletal: Denies arthralgias or myalgias Integumentary Denies abscess or rash Neurologic Neurologic: Reports other Details: Shaking Difficulty speaking ; Denies headache(s), paresthesias or weakness Psychiatric Psychiatric: Denies anxiety, depression, suicidal ideation or suicidal thoughts Endocrine Endocrinology: Denies polydipsia, polyphagia or polyuria Allergic/Immunologic Allergic/Immunologic ED: Denies mouth swelling, tongue swelling or urticaria EXAM Physical Exam Const Vital Signs: 05/20/23 08:41 05/20/23 08:42 05/20/23 08:42 Temperature 97.9 F 97.9 F 97.9 F Temperature Source Temporal Temporal Temporal Pulse Rate 77 77 77 Respiratory Rate 18 18 18 Blood Pressure 146/98 H 146/98 H 146/98 H Blood Pressure Mean 114 114 114 Pulse Ox 96 96 96 Oxygen Delivery Method Room Air Room Air Room Air 05/20/23 09:12 Temperature Temperature Source Pulse Rate 75 Respiratory Rate 16 Blood Pressure 122/81 H Blood Pressure Mean 94 Pulse Ox 94 Oxygen Delivery Method Room Air Positive well nourished and well developed General Appearance ED: well developed HEENT Reports normocephalic, head/scalp atraumatic and moist mucous membranes HEENT Narrative: there are small contusion like areas on the side of the tongue's. Patient states is because at times he cannot stop himself from shaking. Eyes PERRL and EOMs intact bilaterally Neck no lymphadenopathy, supple and no JVD Resp normal respiratory effort and clear to auscultation bilaterally Cardio regular rate, regular rhythm and no murmurs GI normal to inspection, nondistended, normoactive bowel sounds and non-tender Palpation: soft Back/Spine no CVA tenderness and normal ROM Extremity normal to inspection General Extremety ED: Negative for edema General Extremity: Negative for edema Neuro oriented x3 and CN's II-XII intact bilaterally Neuro Narrative: Dysarthria noted Vick Coma Scale: document GCS findings Spontaneous Obeys Commands Oriented 15 Sensorium / Orientation: alert Speech: Negative for speech normal Sensory Exam: No sensory level loss detected Motor Exam: strength 5/5 throughout Psych mental status grossly normal Mood & Affect: Negative for depressed or tearful Skin no rashes or lesions noted and no wounds NIHSS NIHSS Initial: 1a Level of Consciousness: 0 1b LOC Questions (Score 2 if aphasic/stupor): 0 1c LOC Commands (Only score 1st attempt): 0 2 Best Gaze (If aphasic, use reflexive mvmts.): 0 3 Visual: 0 4 Facial Palsy: 0 5 Motor Arm Right (UN = amputation/fusion): 0 5 Motor Arm Left: 0 6 Motor Leg Right: 0 6 Motor Leg Left: 0 7 Limb ataxia (Only + if out of proportion): 0 8 Sensory (Aphasia/stupor=0 or 1, coma=2): 0 9 Best Language: 0 10 Dysarthria (mute, coma=2, intubated=UN): 1 11 Extinction and Inattention (only scored if +): 0 Total Score: 1 MDM MDM MDM Narrative Medical decision making narrative: Prehospital stroke team was called. Patient was seen and examined in the ambulance bay area. He was taken directly to CT scan where a CT of the brain and CTA of head and neck was performed. The patient was then brought back into the ED room where he was assessed by [facility]. Obviously he is out of the window for tPA and I do not see any large vessel occlusion. My independent interpretation of the chest x-ray is Increased markings right base. I see that on his last chest x-ray in October had similar markings.. Troponin 6. Creatinine 1.59. White count 9.1. EKG is a sinus rhythm. Patient has been unable to provide a urine specimen yet. I will speak with the hospitalist regarding admission for further workup. I have not seen any seizure-like activity. I am not seeing any infectious signs at this point. History & Record Review Discussion w/independent historian: EMS personnel, Patient and Family Additional record(s) reviewed:: Prior inpatient record, Prior outpatient record, Prior ED visit and Prior labs Lab Data Attestation: I reviewed the patient's lab results. Labs: Laboratory Results - last 24 hr 05/20/23 08:28 WBC 9.1 RBC 4.86 Hgb 15.2 Hct 46.3 MCV 95.3 H MCH 31.3 MCHC 32.8 RDW Std Deviation 44.9 H RDW Coeff of Sukumar 12.8 Plt Count 265 MPV 9.3 Immature Gran % (Auto) 0.600 Neut % (Auto) 79.6 H Lymph % (Auto) 9.3 L Tillman % (Auto) 8.9 Eos % (Auto) 1.0 Baso % (Auto) 0.6 Absolute Neuts (auto) 7.2 Absolute Lymphs (auto) 0.84 Nucleated RBC % 0 PT 13.6 INR 1.0 APTT 29.4 Sodium 139 Potassium 3.9 Chloride 109 H Carbon Dioxide 22.0 Anion Gap 8 BUN 23 H Creatinine 1.59 H Estim Creat Clear Calc 38.26 Est GFR (MDRD) Af Amer 54 L Est GFR (MDRD) Non-Af 45 L BUN/Creatinine Ratio 14.5 Glucose 139 H Calcium 9.0 Troponin I High Sens 6 Radiography Diagnostic Testing: Clinical Impression(s) from Imaging Studies Brain CT 05/20/23 08:42 IMPRESSION: Chronic involutional changes of the brain. N.B. : The above Results were Read Back by Charanjit Smith MD to Rl Cadena and understanding confirmed on 05/20/2023 09:01:17 (ET). Electronically Signed: Charanjit Smith MD at 9:03 EST , ADDENDUM: 05/20/23 0910 IMPRESSION: Chronic involutional changes of the brain. N.B. : The above Results were Read Back by Charanjit Smith MD to Rl Cadena and understanding confirmed on 05/20/2023 09:01:17 (ET). Electronically Signed: Charanjit Smith MD at 9:03 EST , Head/Neck CTA 05/20/23 08:42 IMPRESSION: Atherosclerotic calcific plaques at the origin of the left internal carotid artery causing between 50 and 69% stenosis. Mild calcific plaque at the origin of the right internal carotid artery causing less than 50% stenosis. Electronically Signed: Charanjit Smith MD at 9:08 EST , ADDENDUM: 05/20/23 0916 IMPRESSION: Atherosclerotic calcific plaques at the origin of the left internal carotid artery causing between 50 and 69% stenosis. Mild calcific plaque at the origin of the right internal carotid artery causing less than 50% stenosis. N.B. : The above Results were Read Back by Charanjit Smith MD to Dr Surinder DO, and understanding confirmed on 05/20/2023 09:09:48 (ET). Electronically Signed: Charanjit Smith MD at 9:08 EST , Chest X-Ray 05/20/23 09:28 IMPRESSION: Increased markings at the right lung base suggestive of atelectasis and/or early infiltrate superimposed on scarring. Electronically Signed: Charanjit Smith MD at 10:05 EST , EKG Initial EKG: Attestation: I personally reviewed and interpreted this EKG as follows: Comments: Sinus rhythm with a first-degree AV block and a ventricular rate of 72 bpm Management Discussion w/another healthcare provider: Hospitalist Discharge Plan Triage Chief Complaint: Stroke Alert ED Provider: Rl Cadena Dx/Rx/DC Orders Prescriptions: No Action cholecalciferol (vitamin D3) 25 mcg (1,000 unit) capsule 25 mcg PO DAILY levothyroxine 75 mcg tablet 88 mcg PO DAILY@0600 ezetimibe [Zetia] 10 mg tablet 10 mg PO DAILY Qty: 30 6RF Repatha SureClick 140 mg/mL pen injector 140 mg subcut Q2W Qty: 2 11RF (DME) blood pressure monitor Kit See Rx Instructions .Route Qty: 1 0RF Rx Instructions: As directed metoprolol tartrate 50 mg tablet 50 mg PO BID Qty: 60 11RF aspirin 81 mg Tablet,Chewable 81 mg PO DAILY pantoprazole 40 mg Tablet,Delayed Release (Dr/Ec) 40 mg PO DAILY 30 Days Qty: 30 0RF amlodipine 2.5 mg Tablet 2.5 mg PO DAILY Qty: 60 6RF clopidogrel 75 mg Tablet 75 mg PO DAILY Qty: 30 11RF furosemide [Lasix] 20 mg tablet 20 mg PO DAILY PRN (Reason: edema, sob, weight gain) Qty: 60 11RF Hold Instructions: Order Changed Primary Care Provider: Jose Hooks Chi Referrals: Jose Hooks Chi, MD [Primary Care Provider] -
[2023-05-20 09:11] LABS: Prothrombin Time (Protime)PT. 13.6 SECONDS (11.7-14.9)
[2023-05-20 09:18] LABS: Partial Thromboplast Time 29.4 Seconds (24.1-36.2)
[2023-05-20 09:24] LABS: Anion Gap 8 (5-15); BUN 23 mg/dL (7-18); BUN/Creat Ratio 14.5 RATIO (10-20); Chloride 109 mmol/L (98-107); Creatinine, Serum 1.59 mg/dL (0.70-1.30); EST Glomerular Filtration Rate 45 mL/min (>60); Est Glom Filt Rate - Afr Amer 54 mL/min (>60); Estimated Creatinine Clearance 38.26 ml/min; Glucose 139 mg/dL (74-106); Potassium 3.9 mmol/L (3.5-5.1); Sodium Level 139 mmol/L (136-145); Troponin-I HS 6 pg/mL (3.0-78.0)
--- NOTE | 2023-05-20 09:28 | RAD_ITS ---
STUDY: X-RAY CHEST REASON FOR EXAM: Male, 82 years old. Neuro deficit, acute, stroke suspected TECHNIQUE: Single AP portable view of the chest. COMPARISON: Comparison is made with prior study dated November 17, 2022. FINDINGS: EKG electrodes are seen. Increased markings at the right lung base. This has progressed slightly as compared to prior study. This may represent right basilar atelectasis superimposed on scarring. Blunting of the right costo phrenic angle. Sternal cerclage wires and vascular clips are present from a prior sternotomy and coronary artery bypass graft procedure (CABG). Normal mediastinum and param. Normal visualized pulmonary arteries. There is atherosclerotic tortuosity of the aortic arch and descending thoracic aorta. There are diffuse degenerative changes of the visualized thoracic spine. Normal visualized ribs, clavicles, and shoulders. There is no demonstrated abnormality of the visualized soft tissue structures of the upper abdomen. RAD/Chest 1 View IMPRESSION: Increased markings at the right lung base suggestive of atelectasis and/or early infiltrate superimposed on scarring. Electronically Signed: Charanjit Smith MD at 10:05 EST ,
--- NOTE | 2023-05-20 10:34 | NURSING ---
DR DEVON HERNANDEZ
[2023-05-20 10:54] LABS: Bacteria 0 SEEN /hpf (None Seen); Mucous, Urine 0 SEEN /hpf (<or=2+); Squamous Epithelial Cells - UA 0 SEEN /hpf (0-5); White Blood Cells 0 SEEN /hpf (0-5)
[2023-05-20 10:59] LABS: Color, Urine Yellow (Yellow); Glucose, Dipstick Normal (Normal); Ketone-Dipstick Negative (Negative); Leukocyte Esterase-Dipstick Negative /ul (Negative); Nitrite-Dipstick Negative (Negative); Occult Blood-Urine 25 /ul (Negative); Protein-Dipstick 15 mg/dl (Negative); Urine Bilirubin Dipstick Negative (Negative); Urine Clarity Clear (Clear); Urine Urobilinogen 1 mg/dl (Normal)
[2023-05-20 11:07] LABS: Red Blood Cells-Urine 0-5 SEEN /hpf (0-5)
--- NOTE | 2023-05-20 11:48 | NURSING ---
PCU STROKE DEVON
--- NOTE | 2023-05-20 12:21 | HP.PCM.HOS_ITS ---
[facility] - General General Date of Admission: 05/20/23 Date of Service: 05/20/23 Chief Complaint: dysarthria. weakness. HPI Narrative KULWANT ANDRADE, is a 82 M who presents with dysarthria and weakness. Normally, the patient is very independent and speaks coherently. Patient beginning last night started having dysarthria as well as weakness. Patient was having an issue holding onto objects and dropping and was having shaking trying to hold and manipulates objects. Patient also with weakness in his legs. Had been feeling fine as of last night prior to this beginning. Patient denies any recent illness though he did have RSV about 3 weeks ago. He denies any new medications, denies any diphenhydramine, allergy medications, cold medications, antidepressants. So he presented to the emergency room and underwent neurologic workup with CT of the head and CTA of the head and neck were unremarkable any acute process. There is ongoing symptoms, the hospital service was contacted and patient being hospitalized. 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 Bigeminy BPH (benign prostatic hyperplasia) CAD (coronary artery disease) Cardiomyopathy in other diseases classified elsewhere D-dimer, elevated DDD (degenerative disc disease) Dyspnea on exertion Edema Essential hypertension Fibromyalgia Hemorrhoid HTN (hypertension) Hyperlipidemia Hypothyroid Nasal sinus polyp Postoperative atrial fibrillation Premature atrial contractions Premature ventricular contraction Pulmonary nodule Syncope White coat syndrome with hypertension Home Medications aspirin 81 mg chewable tablet 81 mg PO DAILY HEART HEALTH 02/22/21 [History Last Taken 05/20/23] pantoprazole 40 mg tablet,delayed release 40 mg PO DAILY ACID REFUX 30 days #30 tabs 03/12/21 [Rx Last Taken 05/20/23] cholecalciferol (vitamin D3) 25 mcg (1,000 unit) capsule 25 mcg PO DAILY SUPPLEM ENT 12/25/21 [History Last Taken 05/20/23] levothyroxine 75 mcg tablet 88 mcg PO DAILY@0600 THYROID 06/26/22 [History Last Taken 05/20/23] furosemide 20 mg tablet (Lasix) 20 mg PO DAILY PRN edema, sob, weight gain #60 tabs 11/18/22 [Rx Last Taken Unknown] amlodipine 2.5 mg tablet 2.5 mg PO DAILY BLOOD PRESSURE #60 tabs 01/05/23 [Rx Last Taken 05/20/23] clopidogrel 75 mg tablet 75 mg PO DAILY BLOOD THINNER #30 tabs 01/05/23 [Rx Last Taken 05/20/23] blood pressure monitor #1 ea 01/15/23 [Rx Last Taken Unknown] evolocumab 140 mg/mL subcutaneous pen injector (Repatha SureClick) 140 mg subcut Q2W CHOLESTEROL #2 mL 01/15/23 [Rx Last Taken 05/13/23] ezetimibe 10 mg tablet (Zetia) 10 mg PO DAILY CHOLESTEROL #30 tabs 01/15/23 [Rx Last Taken 05/20/23] metoprolol tartrate 50 mg tablet 50 mg PO BID BLOOD PRESSURE #60 tabs 02/24/23 [Rx Last Taken 05/20/23] Allergy/AdvReac Type Severity Reaction Status Date / Time erythromycin base Allergy Hives Verified 05/20/23 09:04 amoxicillin [From Augmentin] AdvReac Severe Itching Verified 05/20/23 09:04 atorvastatin AdvReac Severe myalgias Verified 05/20/23 09:04 clavulanic acid AdvReac Severe Itching Verified 04/15/23 15:28 [From Augmentin] fenofibrate [From Tricor] AdvReac Severe myalgias Verified 05/20/23 09:04 levofloxacin [From Levaquin] AdvReac Unknown Unknown Verified 05/20/23 09:04 Family History Father CVA (cerebral vascular accident) Hypertension Heart disease Mother CAD (coronary artery disease) Brother Hypertension Brother CAD (coronary artery disease) Hypertension Sister Hypertension Sister Patent foramen ovale Sister Hypertension Lung cancer Other Dyspnea on exertion Surgical History H/O hemorrhoidectomy History of back surgery History of cholecystectomy History of coronary artery bypass graft x 3 (~02/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 Vital Signs Vital Signs Vital Signs: 05/20/23 08:41 05/20/23 08:42 05/20/23 08:42 Temperature 36.6 C 36.6 C 36.6 C Temperature Source Temporal Temporal Temporal Pulse Rate 77 77 77 Respiratory Rate 18 18 18 Blood Pressure 146/98 H 146/98 H 146/98 H Blood Pressure Mean 114 114 114 Pulse Ox 96 96 96 Oxygen Delivery Method Room Air Room Air Room Air 05/20/23 09:12 05/20/23 09:30 05/20/23 10:00 Temperature Temperature Source Pulse Rate 75 73 76 Respiratory Rate 16 18 18 Blood Pressure 122/81 H 142/87 H 126/82 H Blood Pressure Mean 94 105 96 Pulse Ox 94 94 94 Oxygen Delivery Method Room Air Room Air Room Air 05/20/23 10:30 05/20/23 11:00 05/20/23 11:30 Temperature 36.7 C 36.7 C Temperature Source Temporal Temporal Pulse Rate 78 80 79 Respiratory Rate 16 18 16 Blood Pressure 134/83 H 137/91 H 142/91 H Blood Pressure Mean 100 106 108 Pulse Ox 94 95 95 Oxygen Delivery Method Room Air Room Air Room Air 05/20/23 12:00 05/20/23 12:00 Temperature 36.7 C 36.7 C Temperature Source Temporal Pulse Rate 82 82 Respiratory Rate 16 16 Blood Pressure 144/84 H 144/84 H Blood Pressure Mean 104 104 Pulse Ox 94 94 Oxygen Delivery Method Room Air Weight Weight: 78.5 kg Body Mass Index (BMI) 24.8 Physical Exam Const alert and no apparent distress HEENT normocephalic and head/scalp atraumatic HEENT Narrative: Noted tongue bruising as well as tongue fasciculations. Eyes PERRL and EOMs intact bilaterally Eyes Narrative: Intact vertical saccades. She impaired lateral eye movement to the right that was slowed but was present. Neck no lymphadenopathy Neck Narrative: No thyromegaly Resp normal respiratory effort, no retractions, no use of accessory muscles and clear to auscultation bilaterally Cardio regular rate, regular rhythm, S1 normal heart sound and S2 normal heart sound GI normal to inspection, nondistended, normoactive bowel sounds, soft to palpation, non-tender and non-distended Extremity normal to inspection and full ROM Skin Skin Narrative: No rashes or lesions Neuro oriented x3, CN's II-XII intact bilaterally and moves all extremities Neuro Narrative: Noted dysarthria but coherent. Muscle strength is 4-5 in upper and lower extremities. Would giveaway but is able to raise it back up on his own. Sensorium / Orientation: awake and alert Psych affect normal Results Lab / Micro Data Attestation: I reviewed the patient's lab results. 05/20/23 08:28 05/20/23 08:28 Labs: Laboratory Results - last 24 hr 05/20/23 08:28: WBC 9.1, RBC 4.86, Hgb 15.2, Hct 46.3, MCV 95.3 H, MCH 31.3, MCHC 32.8, RDW Std Deviation 44.9 H, RDW Coeff of Sukumar 12.8, Plt Count 265, MPV 9.3, Immature Gran % (Auto) 0.600, Neut % (Auto) 79.6 H, Lymph % (Auto) 9.3 L, Ponce % (Auto) 8.9, Eos % (Auto) 1.0, Baso % (Auto) 0.6, Absolute Neuts (auto) 7.2, Absolute Lymphs (auto) 0.84, Nucleated RBC % 0, PT 13.6, INR 1.0, APTT 29.4, Sodium 139, Potassium 3.9, Chloride 109 H, Carbon Dioxide 22.0, Anion Gap 8, BUN 23 H, Creatinine 1.59 H, Estim Creat Clear Calc 38.26, Est GFR (MDRD) Af Amer 54 L, Est GFR (MDRD) Non-Af 45 L, BUN/Creatinine Ratio 14.5, Glucose 139 H, Calcium 9.0, Troponin I High Sens 6 05/20/23 10:50: Urine Color Yellow, Urine Clarity Clear, Urine pH 7.0, Ur Specific [place] 1.010, Urine Protein 15 H, Urine Glucose (UA) Normal, Urine Ketones Negative, Urine Occult Blood 25 H, Urine Nitrite Negative, Urine Bilirubin Negative, Urine Urobilinogen 1 H, Ur Leukocyte Esterase Negative, Urine RBC 0-5 SEEN, Urine WBC 0 SEEN, Ur Squamous Epith Cells 0 SEEN, Urine Bact eria 0 SEEN, Urine Mucus 0 SEEN Imagaing Radiology Impression Brain CT 05/20/23 08:42 IMPRESSION: Chronic involutional changes of the brain. N.B. : The above Results were Read Back by Charanjit Smith MD to Rl Cadena and understanding confirmed on 05/20/2023 09:01:17 (ET). Electronically Signed: Charanjit Smith MD at 9:03 EST , ADDENDUM: 05/20/23 0910 IMPRESSION: Chronic involutional changes of the brain. N.B. : The above Results were Read Back by Charanjit Smith MD to Rl Cadena and understanding confirmed on 05/20/2023 09:01:17 (ET). Electronically Signed: Charanjit Smith MD at 9:03 EST , Head/Neck CTA 05/20/23 08:42 IMPRESSION: Atherosclerotic calcific plaques at the origin of the left internal carotid artery causing between 50 and 69% stenosis. Mild calcific plaque at the origin of the right internal carotid artery causing less than 50% stenosis. Electronically Signed: Charanjit Smith MD at 9:08 EST , ADDENDUM: 05/20/23 0916 IMPRESSION: Atherosclerotic calcific plaques at the origin of the left internal carotid artery causing between 50 and 69% stenosis. Mild calcific plaque at the origin of the right internal carotid artery causing less than 50% stenosis. N.B. : The above Results were Read Back by Charanjit Smith MD to Dr Surinder DO, and understanding confirmed on 05/20/2023 09:09:48 (ET). Electronically Signed: Charanjit Smith MD at 9:08 EST , Chest X-Ray 05/20/23 09:28 IMPRESSION: Increased markings at the right lung base suggestive of atelectasis and/or early infiltrate superimposed on scarring. Electronically Signed: Charanjit Smith MD at 10:05 EST , Assessment & Plan Assessment/Plan (1) Dysarthria: PLAN: Plan Dysarthria * With associated weakness. Patient has fasciculations of his tongue. Is unclear of the significance of this. But would be beneficial to proceed with a stroke workup including an MRI and echocardiogram. Patient is already on aspirin and clopidogrel and will continue with those medications. * Will check an EEG as patient did bite his tongue. Unclear if that was related with prior jaw fasciculations that he was having with this. * Other concerns could include other neurologic diseases such as Parkinson's, PSP, ALS etc. Seems unlikely as this was been in rapid onset and patient has not had any prior history of this in the past. No clear medications that would be contributing to this as well. * Speech therapy * Will check a TSH and ammonia level. Weakness * Unclear etiology but likely tied into the dysarthria somehow. * PT OT evaluate and treat Chronic additions * Hypertension: Hold off on metoprolol and amlodipine until the . * Hypothyroidism: Continue with levothyroxine VTE prophylaxis: Subcu heparin. CODE STATUS: Addressed with the patient. Patient was to be full code. Charges/Coding Visit Charges Inpatient E&M: 89986 Init Hosp L3
--- NOTE | 2023-05-20 12:36 | MRI_ITS ---
STUDY: MRI BRAIN WITHOUT CONTRAST REASON FOR EXAM: Male, 82 years old. dysarthia. weakness. TECHNIQUE: Standardized multiplanar fat and water weighted pulse sequences were obtained. COMPARISON: Head CT dated May 20, 2023. MRI of the brain dated November 14, 2021 FINDINGS: There is mild cerebral atrophy with widening of the extra-axial spaces and ventricular dilatation. There are multiple white matter hyperintensities, distributed throughout the deep white matter tracts of the cerebral hemispheres, consistent with moderate chronic white matter ischemic changes. There is no evidence for recent intracranial ischemia or other cause of cytotoxic edema on diffusion weighted imaging (DWI). Normal T2* images of the brain without demonstrated susceptibility artifact. There is no demonstrated hemosiderin stain. There are prominent perivascular spaces (PVS) involving the basal ganglia. Normal thalami. There is no extra-axial fluid accumulation. Normal flow voids within the major intracranial circulation suggesting patency by spin echo criteria. Normal sella turcica, pituitary gland, infundibular stalk, optic chiasm and hypothalamus. Normal tectal plate and pineal gland. Normal midbrain, laura and medulla. Normal cerebellum. Normal basal cisterns. Normal bilateral temporal bones. Normal bilateral internal auditory canals. No demonstrated orbital abnormality, within the constraints of a routine brain study. There is mucoperiosteal inflammatory disease of the paranasal sinuses consistent with mild chronic sinusitis. Normal calvarium and skull base. Normal visualized soft tissue structures. Normal visualized upper cervical spine. MRI/Brain without Contrast IMPRESSION: 1. Involutional and chronic ischemic changes of the brain, as described above. Electronically Signed: Karthikeyan Thompson MD at 14:55 EST ,
--- NOTE | 2023-05-20 12:36 | ECHOD_ITS ---
Reason For Study: TIA/CVA Procedure This was a 2D Doppler, Color Flow transthoracic echocardiogram. Exam performed portable in patient room. Left Ventricle Normal left ventricle. The estimated ejection fraction is 55-60 %. Right Ventricle Normal right ventricle. Normal systolic function. Atria The left atrium is mildly enlarged. Normal right atrium. Mitral Valve The mitral valve is structurally normal. No prolapse or stenosis seen. Mild (1+) mitral valve insufficiency. Tricuspid Valve Normal tricuspid valve. Aortic Valve Trisinus/trileaflet aortic valve. Pulmonic Valve The pulmonic valve is not well visualized. Great Vessels The aortic root is not well visualized. Pericardium/Pleural No pericardial effusion. MMode/2D Measurements & Calculations LVIDd: 3.8 cm IVSd: 1.1 cm Ao root diam: 3.3 cm LVIDs: 2.4 cm LVPWd: 1.1 cm RVDd: 3.9 cm FS: 36.5 % LAV(MOD-bp): 29.3 ml LVAd ap4: 23.5 cm2 SV(MOD-sp4): 41.9 ml LAV(MOD-bp) Indexed: 15.0 ml/m2 LVLd ap4: 7.6 cm LAV(MOD-sp2): 23.5 ml EDV(MOD-sp4): 61.5 ml LAV(MOD-sp4): 37.1 ml EDV(sp4-el): 61.4 ml LVAs ap4: 11.9 cm2 LVLs ap4: 6.3 cm ESV(MOD-sp4): 19.6 ml ESV(sp4-el): 19.3 ml EF(MOD-sp4): 68.1 % EF(sp4-el): 68.6 % SV(sp4-el): 42.1 ml LA A4 area: 16.1 cm2 LA dimension(2D): 4.2 cm RA A4 area: 8.0 cm2 Time Measurements MV dec time: 0.28 sec Doppler Measurements & Calculations MV E max orestes: 68.0 cm/sec Lat Peak E' Orestes: 11.1 cm/sec Med Peak E' Orestes: 6.3 cm/sec MV A max orestes: 88.3 cm/sec E/E' lat: 6.1 E/E' med: 10.8 MV E/A: 0.77 Ao V2 max: 104.0 cm/sec LV V1 max: 83.9 cm/sec MV dec slope: 244.2 cm/sec2 Ao max P.3 mmHg LV V1 max P.8 mmHg Ao V2 mean: 85.5 cm/sec Ao mean P.0 mmHg Ao V2 VTI: 21.5 cm PA V2 max: 89.8 cm/sec TR max orestes: 221.7 cm/sec TR max P.7 mmHg ECHO/Echo Complete Interpretation Summary The estimated ejection fraction is 55-60 %. Normal LV systolic function Mild MR Grade 1 diastolic dysfunction No significant change in comparison to prior echocardiogram in October 2022 Ordering Physician: Lm Delaney Referring Physician: Jose Hooks Chi Performed By: Kayla Sethi, JEAN CARLOS, RVT
[2023-05-20 12:52] LABS: Thyroid Stim Hormone (TSH) 0.42 uIU/mL (0.358-3.74)
[2023-05-20 13:15] LABS: Ammonia < 10.0 umol/L (11-32)
[2023-05-20] MEDS: 0.9% Normal Saline (1000mL) 1,000 ML 150 ML IV (15:43)
[2023-05-20] MEDS: Acetaminophen 325 MG Tablet 650 MG PO (21:45)
[2023-05-21] VITALS (9 sets, daily range): BP systolic 114–133; BP diastolic 78–83; PULSE 70–104; RESP 15–18; TEMP 36.5–37.7; O2SAT 92–95; BMI 21.4
[2023-05-21] MEDS: Levothyroxine 88 MCG Tablet PO (05:00)
[2023-05-21 05:32] LABS: Anion Gap 7 (5-15); BUN 24 mg/dL (7-18); BUN/Creat Ratio 19.4 RATIO (10-20); Chloride 113 mmol/L (98-107); Cholesterol 78 mg/dL (200); Creatinine, Serum 1.24 mg/dL (0.70-1.30); EST Glomerular Filtration Rate 60 mL/min (>60); Est Glom Filt Rate - Afr Amer 72 mL/min (>60); Estimated Creatinine Clearance 49.93 ml/min; Glucose 89 mg/dL (74-106); High Density Lipoprotein 42 mg/dL; Potassium 4.5 mmol/L (3.5-5.1); Sodium Level 145 mmol/L (136-145); Triglycerides 87 mg/dL; Very Low Density Lipoprotein 17 mg/dL (5-40)
--- NOTE | 2023-05-21 08:50 | PN.HOSP_ITS ---
Reason for Visit Reason for Visit: Diagnoses Dysarthria and anarthria (05/20/23) Subjective Subjective Daughter informed nursing that patient may be taking CBD Gummies. Addressed with the patient and he absolutely denies any CBD or marijuana consumption in any form. States that he is speaking somewhat better but still having myoclonus. Objective Data Objective Data Vital Signs: Vital Signs Temp Pulse Resp BP Pulse Ox O2 Del Method 36.6 C 78 15 133/83 H 95 Room Air 05/21/23 03:24 05/21/23 03:24 05/21/23 03:24 05/21/23 03:24 05/21/23 03:24 05/21/23 03:25 Oxygen Delivery Method Room Air Weight: 74.3 kg Body Mass Index (BMI) 21.4 Intake & Output: Intake and Output for Last 24 Hours 05/19/23 05/20/23 05/21/23 23:59 23:59 23:59 Intake Total 1000 / 1000 Balance 1000 / 1000 Lab / Micro Data 05/20/23 08:28 05/21/23 04:50 Labs: Laboratory Results - last 24 hr 05/20/23 08:28: WBC 9.1, RBC 4.86, Hgb 15.2, Hct 46.3, MCV 95.3 H, MCH 31.3, M CHC 32.8, RDW Std Deviation 44.9 H, RDW Coeff of Sukumar 12.8, Plt Count 265, MPV 9.3, Immature Gran % (Auto) 0.600, Neut % (Auto) 79.6 H, Lymph % (Auto) 9.3 L, [place] % (Auto) 8.9, Eos % (Auto) 1.0, Baso % (Auto) 0.6, Absolute Neuts (auto) 7.2, Absolute Lymphs (auto) 0.84, Nucleated RBC % 0, PT 13.6, INR 1.0, APTT 29.4, Sodium 139, Potassium 3.9, Chloride 109 H, Carbon Dioxide 22.0, Anion Gap 8, BUN 23 H, Creatinine 1.59 H, Estim Creat Clear Calc 38.26, Est GFR (MDRD) Af Amer 54 L, Est GFR (MDRD) Non-Af 45 L, BUN/Creatinine Ratio 14.5, Glucose 139 H, Calcium 9.0, Troponin I High Sens 6, TSH 0.42 05/20/23 10:50: Urine Color Yellow, Urine Clarity Clear, Urine pH 7.0, Ur Specific [place] 1.010, Urine Protein 15 H, Urine Glucose (UA) Normal, Urine Ketones Negative, Urine Occult Blood 25 H, Urine Nitrite Negative, Urine Bi lirubin Negative, Urine Urobilinogen 1 H, Ur Leukocyte Esterase Negative, Urine RBC 0-5 SEEN, Urine WBC 0 SEEN, Ur Squamous Epith Cells 0 SEEN, Urine Bacteria 0 SEEN, Urine Mucus 0 SEEN 05/20/23 12:47: Ammonia < 10.0 L 05/21/23 04:50: Sodium 145, Potassium 4.5, Chloride 113 H, Carbon Dioxide 25.0, Anion Gap 7, BUN 24 H, Creatinine 1.24, Estim Creat Clear Calc 49.93, Est GFR (MDRD) Af Amer 72, Est GFR (MDRD) Non-Af 60, BUN/Creatinine Ratio 19.4, Glucose 89, Calcium 8.0 L, Triglycerides 87, Cholesterol 78, LDL Cholesterol 19, VLDL Cholesterol 17, HDL Cholesterol 42 Radiography Diagnostic Testing: Radiology Impression Brain CT 05/20/23 08:42 IMPRESSION: Chronic involutional changes of the brain. N.B. : The above Results were Read Back by Charanjit Smith MD to Rl Cadena and understanding confirmed on 05/20/2023 09:01:17 (ET). Electronically Signed: Charanjit Smith MD at 9:03 EST , ADDENDUM: 05/20/23 0910 IMPRESSION: Chronic involutional changes of the brain. N.B. : The above Results were Read Back by Charanjit Smith MD to Rl Cadena and understanding confirmed on 05/20/2023 09:01:17 (ET). Electronically Signed: Charanjit Smith MD at 9:03 EST , Head/Neck CTA 05/20/23 08:42 IMPRESSION: Atherosclerotic calcific plaques at the origin of the left internal carotid artery causing between 50 and 69% stenosis. Mild calcific plaque at the origin of the right internal carotid artery causing less than 50% stenosis. Electronically Signed: Charanjit Smith MD at 9:08 EST , ADDENDUM: 05/20/23 0916 IMPRESSION: Atherosclerotic calcific plaques at the origin of the left internal carotid artery causing between 50 and 69% stenosis. Mild calcific plaque at the origin of the right internal carotid artery causing less than 50% stenosis. N.B. : The above Results were Read Back by Charanjit Smith MD to Dr Surinder DO, and understanding confirmed on 05/20/2023 09:09:48 (ET). Electronically Signed: Charanjit Smith MD at 9:08 EST , Chest X-Ray 05/20/23 09:28 IMPRESSION: Increased markings at the right lung base suggestive of atelectasis and/or early infiltrate superimposed on scarring. Electronically Signed: Charanjit Smith MD at 10:05 EST , Brain MRI 05/20/23 12:36 IMPRESSION: 1. Involutional and chronic ischemic changes of the brain, as described above. Electronically Signed: Karthikeyan Thompson MD at 14:55 EST , Physical Exam Const alert and no apparent distress HEENT HEENT Narrative: Myoclonic jerking of the jaw. No obvious tongue fasciculations at this time. Neuro Neuro Narrative: Myoclonic jerking of the upper and lower extremities. Sensorium / Orientation: awake and alert Assessment & Plan Assessment/Plan (1) Dysarthria: PLAN: Plan Dysarthria * With associated weakness. Patient has fasciculations of his tongue. Is un clear of the significance of this. Patient is already on aspirin and clopidogrel and will continue with those medications. * MRI brain showed involutional and chronic ischemic changes of the brain. No acute CVA. * Will check an EEG as patient did bite his tongue. Unclear if that was related with prior jaw fasciculations that he was having with this. * Other concerns could include other neurologic diseases such as Parkinson's, PSP, ALS etc. Seems unlikely as this was been in rapid onset and patient has not had any prior history of this in the past. No clear medications that would be contributing to this as well. No medications suggest tardive dyskinesia. Family reports patient may be taking CBD but the patient absolutely denies that nor any consumption of marijuana. * Speech therapy * TSH and ammonia level WNL * Neuro reevaluation pending. Weakness * Unclear etiology but likely tied into the dysarthria somehow. * PT OT evaluate and treat Chronic conditions: * Hypertension: Hold off on metoprolol and amlodipine until the . * Hypothyroidism: Continue with levothyroxine VTE prophylaxis: Subcu heparin. CODE STATUS: Addressed with the patient. Patient was to be full code. Charges/Coding Visit Charges Inpatient E&M: 93307 Subs Hosp L2
[2023-05-21] MEDS: Aspirin 81 MG TAB.CHEW PO (10:14)
[2023-05-21] MEDS: Ezetimibe 10 MG Tablet PO (10:14)
[2023-05-21] MEDS: Clopidogrel Bisulfate 75 MG Tablet PO (10:15)
[2023-05-21] MEDS: Enoxaparin 40 MG/0.4 ML Syringe SC (10:15)
[2023-05-21] MEDS: Pantoprazole Sodium 40 MG Tablet PO (10:15)
[2023-05-21] MEDS: amLODIPine 2.5 MG Tablet PO (10:15)
[2023-05-21] MEDS: Cholecalciferol (VIT D3) 25 MCG TABLET (1,000 UNITS) PO (10:15)
--- NOTE | 2023-05-21 13:45 | NEURO.CONS ---
Assessment and Plan: Neuro Assessment/Plan JANES GAITAN is a 82 M with a past medical history of chronic baclofen use, history of CKD vs BART (unclear which because pt denies history of kidney disease), being evaluated by Teleneurology for myoclonus. On history, symptoms started suddently per pt and has been gradually progressive. Will need corroborating evidence as well. Exam with clear UMN signs of spasticity and +babinski and diffuse movement initiated myoclonus. MRI Brain benign or acute process or cortical diffusion restriction. There is diffuse atrophy and white matter disease. Ddx includes autoimmune encephalitis (especially given recent RSV vaccine), medication withdrawal (given recent decline in baclofen), possible paraneoplastic etiology. Cannot rule out degenerative state but no clear signs for this Plan: - CT chest/abdomen/pelvis - provide 1x dose baclofen 10mg - send the following serum labs: KHANH, ESR, paraneoplastic panel, anti-MOG, autoimune encephalitis panel (sendout lab), [id number], HIV, RPR, lyme - send UDS - recommend LP tomorrow with the following labs: cell count, protein, glucose, cytology, flow cytometry, HSV, VSV, VDRL, [place] virus, lyme, enterovirus, listeria monocytogenies, gram stain, CSF autoimmune panel (sendout lab), RT-QuIC Transfer to [facility] for the following reasons: I personally attended this patient and spent a total time of minutes evaluating this patient including clinical assessment, review of chart, medical history imaging, and determining appropriate treatment and workup. HPI Consult Data Date of Consult: 05/21/23 HPI Narrative HPI Narrative: JANES GAITAN, is a 82 M who presents with dysarthria and weakness. Normally, the patient is very independent and speaks coherently. Patient beginning last night started having dysarthria as well as weakness. Patient was having an issue holding onto objects and dropping and was having shaking trying to hold and manipulates objects. Patient also with weakness in his legs. Had been feeling fine as of last night prior to this beginning. Patient denies any recent illness though he did have RSV about 3 weeks ago. He denies any new medications, denies any diphenhydramine, allergy medications, cold medications, antidepressants. So he presented to the emergency room and underwent neurologic workup with CT of the head and CTA of the head and neck were unremarkable any acute process. There is ongoing symptoms, the hospital service was contacted and patient being hospitalized. Today, per progress note, Daughter informed nursing that patient may be taking CBD Gummies. Addressed with the patient and he absolutely denies any CBD or marijuana consumption in any form. States that he is speaking somewhat better but still having myoclonus. Neurologic History The above history was confirmed: day before yesterday per pt woke up with sudden dysarthria and myoclonus. Denies any prior mycolonic symptoms, denies any mental status or cognitive changes. He lives alone. Had a RSV vaccine 3 weeks ago. His voice sounds better to him but still shaking and difficulty feeding himself. Has tried standing up with a walker but arms are shaking poorly. Before all this did not use walker or cane. No new medications recently, no new doses of the medications. No recent stoppage of medication. No difficult using the restroom with this. Has been getting steroid shot in the hip and muscle relaxer been on oral prednisone 10mg. Does not remember the name of the muscle relaxer but baclofen sounds familiar to him. Stopped taking baclofen 1 month ago but was on it for 5 days daily and then would recycle 6 weeks later. Last dose of oral prednisone was 4 weeks ago too. Re baclofen, on further questioning, pt refilled his baclofen 05/04 and could have taken the medications for 5 days. Voice sounds almost back to normal, the shaking was in both arms and legs. No passing out or loss of periods of time. Will shaking and jerking with standing or eating. 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 Bigeminy BPH (benign prostatic hyperplasia) CAD (coronary artery disease) Cardiomyopathy in other diseases classified elsewhere D-dimer, elevated DDD (degenerative disc disease) Dyspnea on exertion Edema Essential hypertension Fibromyalgia Hemorrhoid HTN (hypertension) Hyperlipidemia Hypothyroid Nasal sinus polyp Postoperative atrial fibrillation Premature atrial contractions Premature ventricular contraction Pulmonary nodule Syncope White coat syndrome with hypertension Home Medications aspirin 81 mg chewable tablet 81 mg PO DAILY HEART HEALTH 02/22/21 [History Last Taken 05/20/23] pantoprazole 40 mg tablet,delayed release 40 mg PO DAILY ACID REFUX 30 days #30 tabs 03/12/21 [Rx Last Taken 05/20/23] cholecalciferol (vitamin D3) 25 mcg (1,000 unit) capsule 25 mcg PO DAILY SUPPLEMENT 12/25/21 [History Last Taken 05/20/23] levothyroxine 75 mcg tablet 88 mcg PO DAILY@0600 THYROID 06/26/22 [History Last Taken 05/20/23] furosemide 20 mg tablet (Lasix) 20 mg PO DAILY PRN edema, sob, weight gain #60 tabs 11/18/22 [Rx Last Taken Unknown] amlodipine 2.5 mg tablet 2.5 mg PO DAILY BLOOD PRESSURE #60 tabs 01/05/23 [Rx Last Taken 05/20/23] clopidogrel 75 mg tablet 75 mg PO DAILY BLOOD THINNER #30 tabs 01/05/23 [Rx Last Taken 05/20/23] blood pressure monitor #1 ea 01/15/23 [Rx Last Taken Unknown] evolocumab 140 mg/mL subcutaneous pen injector (Essei Day) 140 mg subcut Q2W CHOLESTEROL #2 mL 01/15/23 [Rx Last Taken 05/13/23] ezetimibe 10 mg tablet (Zetia) 10 mg PO DAILY CHOLESTEROL #30 tabs 01/15/23 [Rx Last Taken 05/20/23] metoprolol tartrate 50 mg tablet 50 mg PO BID BLOOD PRESSURE #60 tabs 02/24/23 [Rx Last Taken 05/20/23] Allergy/AdvReac Type Severity Reaction Status Date / Time erythromycin base Allergy Hives Verified 05/20/23 09:04 amoxicillin [From Augmentin] AdvReac Severe Itching Verified 05/20/23 09:04 atorvastatin AdvReac Severe myalgias Verified 05/20/23 09:04 clavulanic acid AdvReac Severe Itching Verified 04/15/23 15:28 [From Augmentin] fenofibrate [From Tricor] AdvReac Severe myalgias Verified 05/20/23 09:04 levofloxacin [From Levaquin] AdvReac Unknown Unknown Verified 05/20/23 09:04 Family History Father CVA (cerebral vascular accident) Hypertension Heart disease Mother CAD (coronary artery disease) Brother Hypertension Brother CAD (coronary artery disease) Hypertension Sister Hypertension Sister Patent foramen ovale Sister Hypertension Lung cancer Other Dyspnea on exertion Surgical History H/O hemorrhoidectomy History of back surgery History of cholecystectomy History of coronary artery bypass graft x 3 (~02/26/21) History of kidney surgery History of placement of stent in LAD coronary artery (01/05/23) History of radiofrequency ablation procedure for cardiac arrhythmia (~10/2002) Hx of appendectomy Social History household members: none Smoking Status: Never smoker alcohol intake: never substance use type: does not use Vital Signs Vital Signs Vital Signs: 05/20/23 14:00 05/20/23 21:48 05/20/23 21:49 Temperature 98.4 F Temperature Source Oral Pulse Rate 101 H Pulse Strength Normal (2+) Respiratory Rate 16 Respiratory Effort Normal Respiratory Depth Normal Respiratory Pattern Normal Blood Pressure 137/94 H Blood Pressure Mean 108 Blood Pressure Source Monitor Blood Pressure Position Semi-Fowlers Blood Pressure Location Right Forearm Pulse Ox 93 Oxygen Delivery Method Room Air Room Air 05/20/23 19:50 05/21/23 03:24 05/21/23 03:25 Temperature 97.8 F Temperature Source Axillary Pulse Rate 78 Pulse Strength Respiratory Rate 15 Respiratory Effort Normal Non-Labored Normal Non-Labored Respiratory Depth Normal Respiratory Pattern Normal Blood Pressure 133/83 H Blood Pressure Mean 99 Blood Pressure Source Monitor Blood Pressure Position Semi-Fowlers Blood Pressure Location Right Arm Pulse Ox 95 Oxygen Delivery Method Room Air Room Air Room Air 05/21/23 07:45 05/21/23 09:38 05/21/23 09:38 Temperature Temperature Source Pulse Rate Pulse Strength Normal (2+) Respiratory Rate Respiratory Effort Normal Non-Labored Respiratory Depth Normal Respiratory Pattern Normal Blood Pressure Blood Pressure Mean Blood Pressure Source Blood Pressure Position Blood Pressure Location Pulse Ox 93 Oxygen Delivery Method Room Air Room Air 05/21/23 09:48 05/21/23 09:25 Temperature 97.7 F L Temperature Source Temporal Pulse Rate 70 Pulse Strength Respiratory Rate 18 Respiratory Effort Respiratory Depth Respiratory Pattern Blood Pressure 114/79 Blood Pressure Mean 90 Blood Pressure Source Monitor Blood Pressure Position Semi-Fowlers Blood Pressure Location Right Arm Pulse Ox 93 93 Oxygen Delivery Method Room Air Weight Weight: 74.3 kg Body Mass Index (BMI) 21.4 EEG Results Procedure Details EEG Procedure Details: STUDY NAME: routine video EEG monitoring. ? INDICATIONS FOR STUDY: ?Janes Gaitan is 82 yr old man at [facility] who is undergoing routine EEG for stroke like symptoms ? TECHNICAL DESCRIPTION: ?Video EEG monitoring was performed using 10/20 electrode placement system. ? EEG Description: Background rhythm is continuous, symmetric over both the hemispheres with predominant excess beta frequency admixed some alpha activity. No well defined PDR was seen. Voltage is symmetric with most of activity around 20 -40 ?V. Symmetric variability and reactivity was present. ? Stage II sleep transient were seen. ? INTERICTAL DISCHARGE: None. PERIODIC OR RHYTHMIC DISCHARGES: None. CLINICAL EVENTS: None. ? The ECG channel was unremarkable during the monitoring. ? Clinical Interpretation: ? This routine EEG recording is abnormal due to presence of excess fast activity which is likely the medication effect. No epileptogenic abnormalities were recorded. NIHSS NIHSS Nursing Documentation NIHSS Nursing Documentation: NIHSS: Ischemic Stroke/TIA Start: 05/20/23 12:36 Text: For PCU Patients: NIH and Neuro Check every 4 Status: Complete hours and PRN Freq: [id number] Protocol: Activity Type Activity Date Activity User E-sign Co-sign Detail Recorded Client Recorded Date Recorded By Document 05/20/23 13:29 OR Desktop 05/20/23 13:46 OR 05/20/23 13:29 NIH Stroke Scale [NIHSS] A score of 0 is normal or asymptomatic . Total possible score is 42. Inpatient: RN or Physician to activate a stroke alert for onset of new stroke symptoms or with NIHSS increase >/= 3 points. Following change in neurological status, NIHSS will be performed per physician order or more frequently PRN. -1a. Level of Consciousness Alert; keenly responsive -1b. LOC Questions Answers BOTH questions correctly. -1c. LOC Commands Performs both tasks correctly . -2. Best Gaze Normal -3. Visual No visual loss -4. Facial Palsy Normal symmetrical movements -5a. Left Arm No drift; arm holds 90 (or 45 ) degrees for full 10 seconds -5b. Right Arm No drift; arm holds 90 (or 45 ) degrees for full 10 seconds -6b. Right Leg No drift; leg holds 30-degree position for full 5 seconds -7. Limb Ataxia Absent -8. Sensory Normal; no sensory loss -9. Best Language Mild-to- moderate aphasia; -10. Dysarthria Mild-to- moderate dysarthria; -11. Extinction and Inattention No abnormality -Total 2 Query Text:A score of 0 is normal or asymptomatic. Total possible score is 42 . ED: Notify Physician for NIHSS increase by > / = 3 points. Inpatient: RN or Physician to activate a stroke alert for NIHSS increase of > / = 3 points. Coma Scale [Assess] -Eye Opening Spontaneous -Motor Obeys Commands -Verbal Oriented [Total] -Coma Scale Total 15 Physical Exam Narrative -? General: Laying comfortably in bed; in no acute distress. -? HENT: Normal oropharynx and mucosa. Normal external appearance of ears and nose. Exophthalmos. -? Neck: Supple, no pain or tenderness -? CV:? No peripheral edema. -? Pulmonary:? Normal respiratory effort. -? Ext: No cyanosis, edema, or deformity -? Skin: No rash. Normal palpation of skin.? -? Musculoskeletal: full range of motion; no joint tenderness. Normal digits and nails by inspection. No clubbing. -? NEURO: -? Mental Status: The patient was alert and oriented to time, place, and person. Normal recent/remote memory, concentration, and general fund of knowledge. -? Language: speech is clear.? Naming, repetition, fluency, and comprehension intact. -? Cranial Nerves: PERRL 3 mm/brisk. EOMI, visual mcmahon full, no facial asymmetry, facial sensation intact, hearing intact, tongue midline, no evidence of atrophy or fibrillations. No evidence of nystagmus or opsoclonus -? Motor: Detailed strength exam as performed by the nurse/BEBO and witnessed by the physician: R L SA 5 5 EE 5 5 EF 5 5 WE WF Coverer 5 5- HF 5 5 KE 5 5 KF 5 5 DF 5 5 PF 5 5 -? Detailed reflex exam as performed by the nurse/BEBO and witnessed by the physician: R L Biceps Patellar 2 2 Ankle Babinski down up -? Tone: spasticity in the b/l UE - positional myolconus throughout but no inc with startle and none at rest. no evidence of tremor. No bradykinesia, -? Sensation- Intact to light touch bilaterally -? Coordination: No dysmetria on [id number], finger follow finger or [id number]. -? Gait- there is myoclonus with standing, did not walk patient Lab / Micro Data 05/20/23 08:28 05/21/23 04:50 Labs: Laboratory Results - last 24 hr 05/21/23 04:50: Sodium 145, Potassium 4.5, Chloride 113 H, Carbon Dioxide 25.0, Anion Gap 7, BUN 24 H, Creatinine 1.24, Estim Creat Clear Calc 49.93, Est GFR (MDRD) Af Amer 72, Est GFR (MDRD) Non-Af 60, BUN/Creatinine Ratio 19.4, Glucose 89, Calcium 8.0 L, Triglycerides 87, Cholesterol 78, LDL Cholesterol 19, VLDL Cholesterol 17, HDL Cholesterol 42 Imagaing Radiology Impression Brain MRI 05/20/23 12:36 IMPRESSION: 1. Involutional and chronic ischemic changes of the brain, as described above. Electronically Signed: Karthikeyan Thompson MD at 14:55 EST Reading Location ID and State: [facility] / [place] , Service support , Active Medications Active Medications Active Medications: Current Medications Generic Name Dose Route Start Last Admin Trade Name Freq PRN Reason Stop Dose Admin Acetaminophen 650 mg 05/20/23 12:36 05/20/23 21:45 Acetaminophen 325 Mg Tablet PO 650 mg Q6H PRN PRN Administration Pain 1-10 Or Fever>100.7 Amlodipine Besylate 2.5 mg 05/21/23 10:00 05/21/23 10:15 Amlodipine 2.5 Mg Tablet PO 2.5 mg DAILY VASILE Administration Protocol Aspirin 81 mg 05/21/23 08:00 05/21/23 10:14 Aspirin 81 Mg Tab.Chew PO 81 mg DAILYCM VASILE Administration Cholecalciferol 25 mcg 05/21/23 08:00 05/21/23 10:15 Cholecalciferol (Vit D3) 25 Mcg Tablet (1,000 Units) PO 25 mcg DAILYCM VASILE Administration Clopidogrel Bisulfate 75 mg 05/21/23 10:00 05/21/23 10:15 Clopidogrel Bisulfate 75 Mg Tablet PO 75 mg DAILY VASILE Administration Ezetimibe 10 mg 05/21/23 10:00 05/21/23 10:14 Ezetimibe 10 Mg Tablet PO 10 mg DAILY VASILE Administration Enoxaparin Sodium 40 mg 05/21/23 10:00 05/21/23 10:15 Enoxaparin 40 Mg/0.4 Ml Syringe SC 40 mg DAILY VASILE Administration Hydralazine HCl 5 mg 05/20/23 12:36 Hydralazine 20 Mg/Ml Vial IV Q30M PRN to maintain BP goals Sodium Chloride 250 mls @ 15 mls/hr 05/20/23 12:45 IV .[id number] PRN Additional IVPB Infusion Sodium Chloride 250 mls @ 15 mls/hr 05/20/23 12:45 IV .[id number] PRN Saline Flush Labetalol HCl 10 - 20 mg 05/20/23 12:36 Labetalol (Prefilled) 20 Mg/4 Ml IV Q10M PRN PRN to Maintain BP Goals Levothyroxine Sodium 88 mcg 05/21/23 06:00 05/21/23 05:00 Levothyroxine 88 Mcg Tablet PO 88 mcg DAILY@0600 VASILE Administration Metoprolol Tartrate 50 mg 05/21/23 22:00 Metoprolol Tartrate 50 Mg Tablet PO BID [facility] Protocol Pantoprazole Sodium 40 mg 05/21/23 10:00 05/21/23 10:15 Pantoprazole Sodium 40 Mg Tablet PO 40 mg DAILY VASILE Administration Sodium Chloride 10 - 40 ml 05/20/23 12:45 0.9% Saline Lock 10 Ml Syringe IV UD PRN SALINE FLUSH
--- NOTE | 2023-05-21 15:02 | CASEMGMT ---
RN CM NOTE: RN CM to room to complete initial RN CM assessment. RN, Bennett, @ bedside and [facility] tele-neuro consult being done at this time. RN CM to complete assessment at another time. Sakina REYNOSON RN CM
--- NOTE | 2023-05-21 15:20 | CT_ITS ---
We are attempting to reach an attending provider to discuss findings. An addendum with communication details will be sent when the communication is complete. STUDY: CT CHEST, ABDOMEN T PELVIS WITH CONTRAST REASON FOR EXAM: Male, 82 years old. myoclonus -- rule out paraneoplastic syndrome. RADIATION DOSAGE (If Supplied By Facility): CTDIvol = ( 16.63 ) mGy, DLP = ( 1615.06 ) mGycm TECHNIQUE: Transaxial imaging was performed following intravenous administration of IV 100mL Isovue-300. Multiplanar coronal and sagittal images were reformatted. Individualized dose optimization techniques were used for this CT. COMPARISON: CT chest 11/26/2020. FINDINGS: CHEST Bilateral lower lobe atelectasis versus scarring. Minimal scarring versus atelectasis within the right middle lobe and right upper lobe. Otherwise normal lung parenchyma with no focal consolidation to suggest infiltrate. Minimal right-sided the pleural thickening. Normal cardiac size with coronary artery calcifications. The RV/LV ratio is 1.2 suggestive of early sided cardiac strain. Normal mediastinum. Normal hilar regions. A linear filling defects identified throughout the bilateral pulmonary emboli crossing the midline consistent with saddle embolus. This extends into the proximal left upper lobe and left lower lobe pulmonary arteries and some of the distal branches of the left lower lobe. On the right there are filling defect identified within the proximal segmental branches of the right lower lobe and right middle lobe consistent with partially occlusive thrombi. Atherosclerosis of aorta with no aneurysm or dissection. There are multi-level degenerative changes of the thoracic spine. Upper abdomen described indeterminant accompanying CT of the abdomen report. ABDOMEN Lung bases as described above. The visualized portions of the heart are within normal limits. Normal liver. There is non-visualization of the gallbladder, which may be secondary to either contraction or a prior cholecystectomy. Normal spleen. Normal pancreas. Normal bilateral adrenal glands. Normal right kidney. Multiple low-attenuation structures within the left kidney, largest seen in the upper pole measuring 5.7 cm consistent with simple renal cysts. Normal visualized stomach. Normal small intestine. Normal colon. There is non-visualization of the appendix. There is diffuse atherosclerotic calcification of the abdominal aorta with elongation and tortuosity, but without a demonstrated aneurysm. Normal inferior vena cava. Normal retroperitoneum. Minimal fat-containing umbilical hernia. There are diffuse degenerative changes of the visualized lumbar spine. Status post posterior fusion at the lower lumbar spine. Minimal compression fracture of T12, unchanged. PELVIS Mild thickening of urinary bladder wall, cannot exclude cystitis. Nodularity along the posterior urinary bladder wall, likely secondary to nodular prostate enlargement. Questionable cyst versus hydrocele involving the left testis. Normal visualized small intestine. Normal visualized colon. There is no pelvic fluid. There is no pelvic lymphadenopathy or mass lesion. There is diffuse atherosclerotic calcification of the pelvic arteries. Normal abdominal wall. There are diffuse degenerative changes of the visualized lumbar spine. Postoperative changes of the lower lumbar spine. CT/CT Chest, Abd, Pel w/Contrast IMPRESSION: Subtle embolus with multiple bilateral pulmonary emboli as described with early signs of right-sided cardiac strain. Multifocal multilobar atelectasis with scarring, otherwise no acute cardiac pulmonary disease. Left-sided simple renal cysts with no further follow-up imaging recommended. Otherwise unremarkable abdominal viscera. Cannot exclude mild cystitis, correlation with urinalysis recommended. Mild nodular prostate enlargement. Electronically Signed: Lilian Marrero MD at 16:51 EST ,
[2023-05-21] MEDS: Baclofen 10 MG Tablet PO ×2 (16:21→21:13)
[2023-05-21 17:01] LABS: Amphetamine Urine VISTA NEGATIVE (<1000 ng/mL); Barbiturate Urine VISTA NEGATIVE (< 200 ng/mL); Benzodiazepine Urine VISTA NEGATIVE (< 200 ng/mL); Cocaine Urine VISTA NEGATIVE (< 300 ng/mL); Ecstacy Urine VISTA NEGATIVE (< 500 ng/mL); Methadone Urine VISTA NEGATIVE (< 300 ng/mL); PCP Urine VISTA NEGATIVE (< 25 ng/mL); THC Urine VISTA NEGATIVE (< 50 ng/mL); Vista UDS pH Range 5
[2023-05-21] MEDS: Metoprolol Tartrate 50 MG Tablet PO (21:13)
[2023-05-21] MEDS: APIXABAN 5 MG TABLET 10 MG PO (21:13)
[2023-05-22] VITALS (8 sets, daily range): BP systolic 101–151; BP diastolic 74–91; PULSE 58–70; RESP 16–18; TEMP 36.3–37.2; O2SAT 93–94; BMI 21.4
[2023-05-22] MEDS: Levothyroxine 88 MCG Tablet PO (05:39)
[2023-05-22] MEDS: Baclofen 10 MG Tablet PO (05:39)
--- NOTE | 2023-05-22 08:49 | PCM.PN.HOSP ---
Reason for Visit Reason for Visit: Diagnoses Dysarthria and anarthria (05/20/23) Subjective Subjective Still with myoclonus. Objective Data Objective Data Vital Signs: Vital Signs Temp Pulse Resp BP Pulse Ox O2 Del Method 37.2 C 69 16 118/74 93 Room Air 05/22/23 03:00 05/22/23 03:06 05/22/23 03:00 05/22/23 03:00 05/22/23 03:00 05/22/23 07:21 Oxygen Delivery Method Room Air Weight: 74.3 kg Body Mass Index (BMI) 21.4 Intake & Output: Intake and Output for Last 24 Hours 05/20/23 05/21/23 05/22/23 23:59 23:59 23:59 Intake Total 1000 / 1000 360 / 360 Output Total 250 / 250 Balance 1000 / 1000 110 / 110 Lab / Micro Data 05/20/23 08:28 05/21/23 04:50 Labs: Laboratory Results - last 24 hr 05/21/23 16:30: Urine Opiates Screen NEGATIVE, Urine Methadone Screen NEGATIVE, Ur Barbiturates Screen NEGATIVE, Ur Phencyclidine Scrn NEGATIVE, Ur Amphetamines Screen NEGATIVE, MDMA (Ecstasy) Screen NEGATIVE, U Benzodiazepines Scrn NEGATIVE, Urine Cocaine Screen NEGATIVE, U Cannabinoids Screen NEGATIVE, Ur Drug Screen Comment Radiography Diagnostic Testing: Radiology Impression Echocardiogram 05/20/23 12:36 Interpretation Summary The estimated ejection fraction is 55-60 %. Normal LV systolic function Mild MR Grade 1 diastolic dysfunction No significant change in comparison to prior echocardiogram in October 2022 Ordering Physician: Lm Delaney Referring Physician: Jose Hooks Chi Performed By: Kayla Sethi, JEAN CARLOS, RVT Chest/Abdomen/Pelvis CT 05/21/23 15:20 IMPRESSION: Subtle embolus with multiple bilateral pulmonary emboli as described with early signs of right-sided cardiac strain. Multifocal multilobar atelectasis with scarring, otherwise no acute cardiac pulmonary disease. Left-sided simple renal cysts with no further follow-up imaging recommended. Otherwise unremarkable abdominal viscera. Cannot exclude mild cystitis, correlation with urinalysis recommended. Mild nodular prostate enlargement. Electronically Signed: Lilian Marrero MD at 16:51 EST , ADDENDUM: 05/21/23 1708 IMPRESSION: Subtle embolus with multiple bilateral pulmonary emboli as described with early signs of right-sided cardiac strain. Multifocal multilobar atelectasis with scarring, otherwise no acute cardiac pulmonary disease. Left-sided simple renal cysts with no further follow-up imaging recommended. Otherwise unremarkable abdominal viscera. Cannot exclude mild cystitis, correlation with urinalysis recommended. Mild nodular prostate enlargement. N.B. : The above Results were Read Back by Lilian Marrero MD to Aurora Schultz RN, and understanding confirmed on 05/21/2023 17:01:54 (ET). Electronically Signed: Lilian Marrero MD at 16:51 EST , Physical Exam Const alert and no apparent distress Constitutional Narrative: Still with some myoclonus of the extremity throughout. Still with dysarthria but though speech is understandable. Assessment & Plan Assessment/Plan (1) Dysarthria: PLAN: Plan Dysarthria With associated weakness. Patient has fasciculations of his tongue. Is unclear of the significance of this. Patient is already on aspirin and clopidogrel and will continue with those medications. MRI brain showed involutional and chronic ischemic changes of the brain. No acute CVA. Will check an EEG as patient did bite his tongue. Unclear if that was related with prior jaw fasciculations that he was having with this. Other concerns could include other neurologic diseases such as Parkinson's, PSP, ALS etc. Seems unlikely as this was been in rapid onset and patient has not had any prior history of this in the past. No clear medications that would be contributing to this as well. No medications suggest tardive dyskinesia. Family reports patient may be taking CBD but the patient absolutely denies that nor any consumption of marijuana. Speech therapy TSH and ammonia level WNL. UDS negative. EEG negative for seizure. Neuro reevaluation recommending CT C/A/P, dose of baclofen, UDS, KHANH, ESR, anti-MOG, autoimmune encephalitis panel: [id number], HIV, RPR, Lyme. LP (will need to be held as he is on clopidogrel). Unfortunately unable to perform an LP as patient had PCI in January. PE: incidental finding on CT. 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 Echo showed an EF of 55-60%. No mention of right heart strain. On apixaban. Weakness Unclear etiology but likely tied into the dysarthria somehow. PT OT evaluate and treat Chronic conditions: Hypertension: Hold off on metoprolol and amlodipine until the . Hypothyroidism: Continue with levothyroxine VTE prophylaxis: Subcu heparin. CODE STATUS: Addressed with the patient. Patient was to be full code. Greater than 55 minutes of which greater than 50% of time was spent at baseline discussing with the patient about his workup but also discussing with Dr. Drake who videoconference and during the encounter. Charges/Coding Visit Charges Inpatient E&M: 7[address]20 [facility] Hosp L3
[2023-05-22] MEDS: Pantoprazole Sodium 40 MG Tablet PO (09:30)
[2023-05-22] MEDS: APIXABAN 5 MG TABLET 10 MG PO ×2 (09:30→19:58)
[2023-05-22] MEDS: Ezetimibe 10 MG Tablet PO (09:31)
[2023-05-22] MEDS: amLODIPine 2.5 MG Tablet PO (09:31)
[2023-05-22] MEDS: Metoprolol Tartrate 50 MG Tablet PO ×2 (09:31→19:58)
[2023-05-22] MEDS: Cholecalciferol (VIT D3) 25 MCG TABLET (1,000 UNITS) PO (09:31)
[2023-05-22] MEDS: Aspirin 81 MG TAB.CHEW PO (09:31)
[2023-05-22] MEDS: Clopidogrel Bisulfate 75 MG Tablet PO (09:31)
[2023-05-22 09:44] LABS: Erythrocyte Sedimentation Rate 25 mm/hr (0-20)
--- NOTE | 2023-05-22 10:22 | MRI_ITS ---
HISTORY: myoclonus. TECHNIQUE: Axial coronal T1-weighted MR images of the brain were obtained after the intravenous administration of 15 mL Clariscan. 73 images. COMPARISON: Noncontrast examination 05/20/2023. FINDINGS: BRAIN PARENCHYMA: No enhancing lesion in the brain parenchyma. CSF SPACES: Generalized volume loss. No abnormal extra-axial enhancement. OTHER: Paranasal sinus mucosal thickening. Symmetric orbital contents. MRI/Brain WITH Contrast IMPRESSION: No evidence for enhancing intracranial mass. Electronically Signed: Sandra Huynh MD at 13:09 EST ,
--- NOTE | 2023-05-22 11:30 | CASEMGMT ---
RN CM Face to Face with patient for initial transition planning/care coordination assessment. RN CM introduced self and role at [facility]. Patient sitting chair, alert and oriented. Patient willing to participate in assessment and is able to answer all questions appropriately. Care providers, pharmacy, and demographics verified. Patient wishes to discharge home, will monitor for HHC vs outpatient therapy at discharge. Patient states he has no further needs or concerns at this time. CM to follow for discharge planning needs that may arise. PCP: Jessee Specialists: JOSH, cardiology Preferred Pharmacy: [facility] Retail Insurance: [employer] Prescription Benefit: yes Living Will/HPOA: yes, daugther Luna Mast LNOK: daughter Living Arrangements: Patient lives next door to [facility] in a single story home with 1 step and railing to enter the home. Patient was independent at home. Transportation: self, daughter DME/HHC: Patient has shower chair, raised toilet, cane, grab bars. Patient may benefit from walker at discharge. No previous HHC or SNF Disposition Plan: TBD, anticipate HHC vs outpatient therapy pending progress with therapy. Oneida REYNOSON, RN, CM
[2023-05-22] MEDS: clonazePAM 0.5 MG Tablet PO ×2 (13:34→19:58)
--- NOTE | 2023-05-22 19:24 | CON.PCM.NE_ITS ---
Assessment and Plan: Neuro Assessment/Plan Assessment/Plan KULWANT ANDRADE is a 82 M with a past medical history of chronic baclofen use, history of CKD vs BART (unclear which because pt denies history of kidney disease), being evaluated by Teleneurology for myoclonus. On history, symptoms started suddently per pt and has been gradually progressive. Will need corroborating evidence as well. Exam with clear UMN signs of spasticity and +babinski and diffuse movement initiated myoclonus. MRI Brain benign or acute process or cortical diffusion restriction. There is diffuse atrophy and white matter disease. Ddx includes autoimmune encephalitis (especially given recent RSV vaccine), medication withdrawal (given recent decline in baclofen), possible paraneoplastic etiology. Cannot rule out degenerative state but no clear signs for this. Unable to get LP as patient on Plavix and recently had cardiac stent, also needs to be on AC for PE. Improvement in symptoms, recommend klonopin 0.5mg BID. Unclear if this is truly baclofen withdrawal as pt states he definitely did not take the medication but WOJCIECH-agonist is likely helping his symptoms Plan: - MRI Brain with contrast - klonopin 0.5mg BID - serum labs pending: KHANH, paraneoplastic panel, anti-MOG, autoimune encephalitis panel, [id number]. Please also send: HIV, RPR, lyme - ESR 25, CRP 75 suggesting some level of inflammation I personally attended this patient and spent a total time of 30 minutes evaluating this patient including clinical assessment, review of chart, medical history imaging, and determining appropriate treatment and workup. HPI Consult Data Date of Consult: 05/22/23 HPI Narrative HPI Narrative: 05/22 - myoclonus is improved but still present. Pt states definitely does not believe he took the baclofen from this last injection even though it was filled. FOR[facility]LY [facility] Medical History Acid reflux Atherosclerotic heart disease of [place] coronary artery without angina pectoris 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 Bigeminy BPH (benign prostatic hyperplasia) CAD (coronary artery disease) Cardiomyopathy in other diseases classified elsewhere D-dimer, elevated DDD (degenerative disc disease) Dyspnea on exertion Edema Essential hypertension Fibromyalgia Hemorrhoid HTN (hypertension) Hyperlipidemia Hypothyroid Nasal sinus polyp Postoperative atrial fibrillation Premature atrial contractions Premature ventricular contraction Pulmonary nodule Syncope White coat syndrome with hypertension Home Medications aspirin 81 mg chewable tablet 81 mg PO DAILY HEART HEALTH 02/22/21 [History Last Taken 05/20/23] pantoprazole 40 mg tablet,delayed release 40 mg PO DAILY ACID REFUX 30 days #30 tabs 03/12/21 [Rx Last Taken 05/20/23] cholecalciferol (vitamin D3) 25 mcg (1,000 unit) capsule 25 mcg PO DAILY SUPPLEMENT 12/25/21 [History Last Taken 05/20/23] levothyroxine 75 mcg tablet 88 mcg PO DAILY@0600 THYROID 06/26/22 [History Last Taken 05/20/23] furosemide 20 mg tablet (Lasix) 20 mg PO DAILY PRN edema, sob, weight gain #60 tabs 11/18/22 [Rx Last Taken Unknown] amlodipine 2.5 mg tablet 2.5 mg PO DAILY BLOOD PRESSURE #60 tabs 01/05/23 [Rx Last Taken 05/20/23] clopidogrel 75 mg tablet 75 mg PO DAILY BLOOD THINNER #30 tabs 01/05/23 [Rx Last Taken 05/20/23] blood pressure monitor #1 ea 01/15/23 [Rx Last Taken Unknown] evolocumab 140 mg/mL subcutaneous pen injector (Repatha SureClick) 140 mg subcut Q2W CHOLESTEROL #2 mL 01/15/23 [Rx Last Taken 05/13/23] ezetimibe 10 mg tablet (Zetia) 10 mg PO DAILY CHOLESTEROL #30 tabs 01/15/23 [Rx Last Taken 05/20/23] metoprolol tartrate 50 mg tablet 50 mg PO BID BLOOD PRESSURE #60 tabs 02/24/23 [Rx Last Taken 05/20/23] Allergy/AdvReac Type Severity Reaction Status Date / Time erythromycin base Allergy Hives Verified 05/20/23 09:04 amoxicillin [From Augmentin] AdvReac Severe Itching Verified 05/20/23 09:04 atorvastatin AdvReac Severe myalgias Verified 05/20/23 09:04 clavulanic acid AdvReac Severe Itching Verified 04/15/23 15:28 [From Augmentin] fenofibrate [From Tricor] AdvReac Severe myalgias Verified 05/20/23 09:04 levofloxacin [From Levaquin] AdvReac Unknown Unknown Verified 05/20/23 09:04 Family History Father CVA (cerebral vascular accident) Hypertension Heart disease Mother CAD (coronary artery disease) Brother Hypertension Brother CAD (coronary artery disease) Hypertension Sister Hypertension Sister Patent foramen ovale Sister Hypertension Lung cancer Other Dyspnea on exertion Surgical History H/O hemorrhoidectomy History of back surgery History of cholecystectomy History of coronary artery bypass graft x 3 (~02/26/21) History of kidney surgery History of placement of stent in LAD coronary artery (01/05/23) History of radiofrequency ablation procedure for cardiac arrhythmia (~10/2002) Hx of appendectomy Social History household members: none Smoking Status: Never smoker alcohol intake: never substance use type: does not use Vital Signs Vital Signs Vital Signs: 05/21/23 21:09 05/21/23 21:13 05/21/23 21:00 Temperature 99.8 F H Temperature Source Temporal Pulse Rate 100 100 Pulse Strength Respiratory Rate 16 Respiratory Effort Normal Non-Labored Respiratory Depth Normal Respiratory Pattern Normal Blood Pressure 126/78 H Blood Pressure Mean 94 Blood Pressure Source Monitor Blood Pressure Position Supine Blood Pressure Location Right Arm Pulse Ox 92 Oxygen Delivery Method Room Air Room Air 05/21/23 23:12 05/22/23 03:06 05/22/23 03:00 Temperature 99 F Temperature Source Temporal Pulse Rate 79 69 70 Pulse Strength Respiratory Rate 16 Respiratory Effort Respiratory Depth Respiratory Pattern Blood Pressure 118/74 Blood Pressure Mean 88 Blood Pressure Source Monitor Blood Pressure Position Semi-Fowlers Blood Pressure Location Right Arm Pulse Ox 93 Oxygen Delivery Method Room Air 05/22/23 03:00 05/22/23 07:21 05/22/23 07:21 Temperature Temperature Source Pulse Rate Pulse Strength Normal (2+) Respiratory Rate Respiratory Effort Normal Non-Labored Normal Non-Labored Respiratory Depth Normal Normal Respiratory Pattern Normal Normal Blood Pressure Blood Pressure Mean Blood Pressure Source Blood Pressure Position Blood Pressure Location Pulse Ox Oxygen Delivery Method Room Air Room Air 05/22/23 09:00 05/22/23 09:31 05/22/23 07:38 Temperature 97.9 F Temperature Source Temporal Pulse Rate 68 68 Pulse Strength Respiratory Rate 18 Respiratory Effort Respiratory Depth Respiratory Pattern Blood Pressure 101/81 H 101/81 H Blood Pressure Mean 87 Blood Pressure Source Monitor Blood Pressure Position Semi-Fowlers Blood Pressure Location Right Arm Pulse Ox 93 94 Oxygen Delivery Method Room Air Room Air 05/22/23 13:37 05/22/23 15:00 Temperature 97.4 F L Temperature Source Temporal Pulse Rate 58 L Pulse Strength Respiratory Rate 18 Respiratory Effort Normal Non-Labored Respiratory Depth Normal Respiratory Pattern Normal Blood Pressure 151/91 H Blood Pressure Mean 111 Blood Pressure Source Monitor Blood Pressure Position Semi-Fowlers Blood Pressure Location Right Arm Pulse Ox 94 Oxygen Delivery Method Room Air Room Air Weight Weight: 74.3 kg Body Mass Index (BMI) 21.4 NIHSS NIHSS Nursing Documentation NIHSS Nursing Documentation: NIHSS: Ischemic Stroke/TIA Start: 05/20/23 12:36 Text: For PCU Patients: NIH and Neuro Check every 4 Status: Complete hours and PRN Freq: [id number] Protocol: Activity Type Activity Date Activity User E-sign Co-sign Detail Recorded Client Recorded Date Recorded By Document 05/20/23 13:29 MD Desktop 05/20/23 13:46 MD 05/20/23 13:29 NIH Stroke Scale [NIHSS] A score of 0 is normal or asymptomatic . Total possible score is 42. Inpatient: RN or Physician to activate a stroke alert for onset of new stroke symptoms or with NIHSS increase >/= 3 points. Following change in neurological status, NIHSS will be performed per physician order or more frequently PRN. -1a. Level of Consciousness Alert; keenly responsive -1b. LOC Questions Answers BOTH questions correctly. -1c. LOC Commands Performs both tasks correctly . -2. Best Gaze Normal -3. Visual No visual loss -4. Facial Palsy Normal symmetrical movements -5a. Left Arm No drift; arm holds 90 (or 45 ) degrees for full 10 seconds -5b. Right Arm No drift; arm holds 90 (or 45 ) degrees for full 10 seconds -6b. Right Leg No drift; leg holds 30-degree position for full 5 seconds -7. Limb Ataxia Absent -8. Sensory Normal; no sensory loss -9. Best Language Mild-to- moderate aphasia; -10. Dysarthria Mild-to- moderate dysarthria; -11. Extinction and Inattention No abnormality -Total 2 Query Text:A score of 0 is normal or asymptomatic. Total possible score is 42 . ED: Notify Physician for NIHSS increase by > / = 3 points. Inpatient: RN or Physician to activate a stroke alert for NIHSS increase of > / = 3 points. Coma Scale [Assess] -Eye Opening Spontaneous -Motor Obeys Commands -Verbal Oriented [Total] -Coma Scale Total 15 Physical Exam Narrative -? General: Laying comfortably in bed; in no acute distress. -? HENT: Normal oropharynx and mucosa. Normal external appearance of ears and nose. Exophthalmos. -? Neck: Supple, no pain or tenderness -? CV:? No peripheral edema. -? Pulmonary:? Normal respiratory effort. -? Ext: No cyanosis, edema, or deformity -? Skin: No rash. Normal palpation of skin.? -? Musculoskeletal: full range of motion; no joint tenderness. Normal digits and nails by inspection. No clubbing. -? NEURO: -? Mental Status: The patient was alert and oriented to time, place, and person. Normal recent/remote memory, concentration, and general fund of knowledge. -? Language: speech is clear.? Naming, repetition, fluency, and comprehension intact. -? Cranial Nerves: PERRL 3 mm/brisk. EOMI, visual mcmahon full, no facial asymmetry, facial sensation intact, hearing intact, tongue midline, no evidence of atrophy or fibrillations. No evidence of nystagmus or opsoclonus - positional myolconus throughout but no inc with startle and none at rest. no evidence of tremor. No bradykinesia, Myoclonus us improved -? Gait- minimal myoclonus on standing Lab / Micro Data 05/20/23 08:28 05/21/23 04:50 Labs: Laboratory Results - last 24 hr 05/22/23 09:10: ESR 25 H, C-React Prot Ext Range 75.60 H Imagaing Radiology Impression Brain MRI 05/22/23 10:22 IMPRESSION: No evidence for enhancing intracranial mass. Electronically Signed: Sandra Huynh MD at 13:09 EST , Active Medications Active Medications Active Medications: Current Medications Generic Name Dose Route Start Last Admin Trade Name Freq PRN Reason Stop Dose Admin Acetaminophen 650 mg 05/20/23 12:36 05/20/23 21:45 Acetaminophen 325 Mg Tablet PO 650 mg Q6H PRN PRN Administration Pain 1-10 Or Fever>100.7 Amlodipine Besylate 2.5 mg 05/21/23 10:00 05/22/23 09:31 Amlodipine 2.5 Mg Tablet PO 2.5 mg DAILY VASILE Administration Protocol Apixaban 10 mg 05/21/23 22:00 05/22/23 09:30 Apixaban 5 Mg Tablet PO 10 mg BID VASILE Administration Aspirin 81 mg 05/21/23 08:00 05/22/23 09:31 Aspirin 81 Mg Tab.Chew PO 81 mg DAILYCM VASILE Administration Cholecalciferol 25 mcg 05/21/23 08:00 05/22/23 09:31 Cholecalciferol (Vit D3) 25 Mcg Tablet (1,000 Units) PO 25 mcg DAILYCM VASILE Administration Clonazepam 0.5 mg 05/22/23 14:00 05/22/23 13:34 Clonazepam 0.5 Mg Tablet PO 0.5 mg Q8H VASILE Administration Clopidogrel Bisulfate 75 mg 05/21/23 10:00 05/22/23 09:31 Clopidogrel Bisulfate 75 Mg Tablet PO 75 mg DAILY VASILE Administration Ezetimibe 10 mg 05/21/23 10:00 05/22/23 09:31 Ezetimibe 10 Mg Tablet PO 10 mg DAILY VASILE Administration Hydralazine HCl 5 mg 05/20/23 12:36 Hydralazine 20 Mg/Ml Vial IV Q30M PRN to maintain BP goals Sodium Chloride 250 mls @ 15 mls/hr 05/20/23 12:45 IV .[id number] PRN Additional IVPB Infusion Sodium Chloride 250 mls @ 15 mls/hr 05/20/23 12:45 IV .[id number] PRN Saline Flush Labetalol HCl 10 - 20 mg 05/20/23 12:36 Labetalol (Prefilled) 20 Mg/4 Ml IV Q10M PRN PRN to Maintain BP Goals Levothyroxine Sodium 88 mcg 05/21/23 06:00 05/22/23 05:39 Levothyroxine 88 Mcg Tablet PO 88 mcg DAILY@0600 VASILE Administration Metoprolol Tartrate 50 mg 05/21/23 22:00 05/22/23 09:31 Metoprolol Tartrate 50 Mg Tablet PO 50 mg BID VASILE Administration Protocol Pantoprazole Sodium 40 mg 05/21/23 10:00 05/22/23 09:30 Pantoprazole Sodium 40 Mg Tablet PO 40 mg DAILY VASILE Administration Sodium Chloride 10 - 40 ml 05/20/23 12:45 0.9% Saline Lock 10 Ml Syringe IV UD PRN SALINE FLUSH
--- NOTE | 2023-05-22 19:57 | NURSING ---
Pt continues to fall asleep during assessment. States he would like his meds to be given early.
[2023-05-23 03:15] VITALS: BP 126/82; PULSE 57; RESP 16; TEMP 35.7; O2SAT 98
[2023-05-23] MEDS: Levothyroxine 88 MCG Tablet PO (05:14)
[2023-05-23] MEDS: clonazePAM 0.5 MG Tablet PO ×2 (05:14→13:44)
[2023-05-23 07:01] VITALS: O2SAT 93
--- NOTE | 2023-05-23 08:06 | PN.HOSP_ITS ---
Reason for Visit Reason for Visit: Diagnoses Dysarthria and anarthria (05/20/23) Subjective Subjective Weakness improved. Objective Data Objective Data Vital Signs: Vital Signs Temp Pulse Resp BP Pulse Ox O2 Del Method 35.7 C L 57 L 16 126/82 H 98 Room Air 05/23/23 03:15 05/23/23 03:15 05/23/23 03:15 05/23/23 03:15 05/23/23 03:15 05/23/23 03:15 Oxygen Delivery Method Room Air Weight: 74.3 kg Body Mass Index (BMI) 21.4 Intake & Output: Intake and Output for Last 24 Hours 05/21/23 05/22/23 05/23/23 23:59 23:59 23:59 Intake Total 360 / 360 530 / 530 Output Total 250 / 250 Balance 110 / 110 530 / 530 Lab / Micro Data 05/20/23 08:28 05/21/23 04:50 Labs: Laboratory Results - last 24 hr 05/22/23 09:10: ESR 25 H, C-React Prot Ext Range 75.60 H Radiography Diagnostic Testing: Radiology Impression Brain MRI 05/22/23 10:22 IMPRESSION: No evidence for enhancing intracranial mass. Electronically Signed: Sandra Huynh MD at 13:09 EST , Physical Exam Const alert and no apparent distress Constitutional Narrative: improved dysarthria. Neuro no focal motor deficits Neuro Narrative: no myoclonus. Sensorium / Orientation: awake and alert Psych affect normal Assessment & Plan Assessment/Plan (1) Dysarthria: PLAN: Plan Myoclonus * Etiology unclear, though this is not a CVA nor seizure nor intracranial mass. * Seen by [facility] teleneurology: possibilities could be autoimmune encephalitis, medication withdrawal (baclofen), paraneoplastic etiology. * MRI brain showed involutional and chronic ischemic changes of the brain. No acute CVA. MRI brain w contrast did not show a mass. * EEG negative for seiziure. * TSH and ammonia level WNL. UDS negative. * Paraneopastic eval pending, autoimmune work up pending. * Unfortunately unable to perform an LP as patient had PCI in January and need to remain on clopidogrel uninterrupted for 12 months * Per [facility] teleneurology, pt should follow up with a more specialized neurologist at a larger institution, such as [facility] or [facility]. Pt prefers to follow up with [facility]. PE: * incidental finding on CT. 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 * Echo showed an EF of 55-60%. No mention of right heart strain. * On apixaban. Weakness * Unclear etiology but likely tied into the dysarthria somehow. * PT OT evaluate and treat Chronic conditions: * Hypertension: Hold off on metoprolol and amlodipine until the . * Hypothyroidism: Continue with levothyroxine VTE prophylaxis: Subcu heparin. CODE STATUS: Addressed with the patient. Patient was to be full code.
[2023-05-23 09:00] VITALS: BMI 21.4
[2023-05-23 09:50] VITALS: BP 152/89; PULSE 65; RESP 16; TEMP 36.5; O2SAT 94
[2023-05-23 10:00] VITALS: BP 152/89; PULSE 65
[2023-05-23] MEDS: Metoprolol Tartrate 50 MG Tablet PO (10:00)
[2023-05-23] MEDS: Cholecalciferol (VIT D3) 25 MCG TABLET (1,000 UNITS) PO (10:00)
[2023-05-23] MEDS: APIXABAN 5 MG TABLET 10 MG PO (10:00)
[2023-05-23] MEDS: amLODIPine 2.5 MG Tablet PO (10:00)
[2023-05-23] MEDS: Clopidogrel Bisulfate 75 MG Tablet PO (10:00)
[2023-05-23] MEDS: Pantoprazole Sodium 40 MG Tablet PO (10:00)
[2023-05-23] MEDS: Aspirin 81 MG TAB.CHEW PO (10:01)
[2023-05-23] MEDS: Ezetimibe 10 MG Tablet PO (10:03)
--- NOTE | 2023-05-23 10:56 | DS.PCM_ITS ---
Providers Date of Admission: 05/20/23 Primary Care Physician: Dr. Jose Hooks MD Consultations 05/20/23 17:28 Consult: Tele-Neurology Routine Consulting Provider: [facility] Reason for Consult: Dysarthria and weakness EMERGENT Consult: No MD Notified: Yes Date Notified: 05/20/23 Time Notified: 17:28 Method of Notification: Answering Service Comments:: Stroke alert in ED Nursing Unit Staff Notify [facility] of Tele-Neurology Consult: Yes Reason For Visit: DYSARTHRIA WEAKNESS Diagnosis Discharge Diagnosis (1) Dysarthria: Status: Acute Code(s): R47.1 - Dysarthria and anarthria Plan Myoclonus * Etiology unclear, though this is not a CVA nor seizure nor intracranial mass. * Seen by [facility]: possibilities could be autoimmune encephalitis, medication withdrawal (baclofen), paraneoplastic etiology. * MRI brain showed involutional and chronic ischemic changes of the brain. No acute CVA. MRI brain w contrast did not show a mass. * EEG negative for seiziure. * TSH and ammonia level WNL. UDS negative. * Paraneopastic eval pending, autoimmune work up pending. * Unfortunately unable to perform an LP as patient had PCI in January and need to remain on clopidogrel uninterrupted for 12 months * Per [facility], pt should follow up with a more specialized neurologist at a larger institution, such as [facility] or [facility]. Pt prefers to follow up with [facility]. PE: * incidental finding on CT. 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 * Echo showed an EF of 55-60%. No mention of right heart strain. * On apixaban. Weakness * Unclear etiology but likely tied into the dysarthria somehow. * PT OT evaluate and treat Chronic conditions: * Hypertension: Hold off on metoprolol and amlodipine until the . * Hypothyroidism: Continue with levothyroxine VTE prophylaxis: Subcu heparin. CODE STATUS: Addressed with the patient. Patient was to be full code. Updated family at bedside. Medications at Discharge Home Medications aspirin 81 mg chewable tablet 81 mg PO DAILY HEART HEALTH 02/22/21 pantoprazole 40 mg tablet,delayed release 40 mg PO DAILY ACID REFUX 30 days #30 tabs 03/12/21 cholecalciferol (vitamin D3) 25 mcg (1,000 unit) capsule 25 mcg PO DAILY SUPPLEMENT 12/25/21 levothyroxine 75 mcg tablet 88 mcg PO DAILY@0600 THYROID 06/26/22 amlodipine 2.5 mg tablet 2.5 mg PO DAILY BLOOD PRESSURE #60 tabs 01/05/23 clopidogrel 75 mg tablet 75 mg PO DAILY BLOOD THINNER #30 tabs 01/05/23 blood pressure monitor #1 ea 01/15/23 evolocumab 140 mg/mL subcutaneous pen injector (Repatha SureClick) 140 mg subcut Q2W CHOLESTEROL #2 mL 01/15/23 ezetimibe 10 mg tablet (Zetia) 10 mg PO DAILY CHOLESTEROL #30 tabs 01/15/23 metoprolol tartrate 50 mg tablet 50 mg PO BID BLOOD PRESSURE #60 tabs 02/24/23 apixaban 5 mg tablet (Eliquis) 10 mg (2 x 5 mg) PO BID #60 tabs 05/23/23 clonazepam 0.5 mg tablet 0.5 mg PO Q8H PRN myoclonic jerks #20 tabs 05/23/23 Weight / BMI Weight Weight: 74.3 kg Body Mass Index (BMI) 21.4 ABG / Lab / Microbiology Data 05/20/23 08:28 05/21/23 04:50 Radiography Diagnostic Testing: Radiology Impression Brain MRI 05/22/23 10:22 IMPRESSION: No evidence for enhancing intracranial mass. Electronically Signed: Sandra Huynh MD at 13:09 EST Reading Location ID and State: [facility] / [place] Tel , Service support , D/C Instructions Discharge Diet: No restrictions Discharge Activity: Use Walker Meaningful Use Info Meaningful Use Diagnoses (Choose all that apply): None applicable Discharge Plan Admission Admit Date/Time: 05/20/23 12:06 Primary Reason for Your Visit: myoclonus. Attending Provider: Lm Delaney Primary Care Provider: Jose Hooks Chi Consulting Providers: Yany Siu; Deborah Drake; Yesi Olson; Kole Morales; Joycelyn Rey; NATALIIA HARO; Mabel Stewart; Sofia Noriega; Jay Fatima; Ilene Parekh; Cong Salas; Carol Sneed; Emely Purcell; Jaxon Gupta; Nathalie Jeter; Ezequiel Portillo; Harjit Vazquez; Art Luis; Ralph Sánchez; Merari Alonso; Emre Mcintyre; Maximo Minor; Louis Carranza; Sheryl Ca; Apollo,Raffaele Instructions Additional Instructions / Restrictions: You have myoclonus. Etiology is unclear. MRI is negative for stroke or any mass in your brain. EEG was negative for seizures. He had autoimmune workup which is currently pending. Please follow-up with your primary care doctor to see if you need a referral to mediator. 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 Options include: [facility] Movement Disorder [phone]. [facility] movement disorder [phone]. [facility] [phone]. Discharge Orders/Prescriptions Prescriptions: New Eliquis 5 mg Tablet 10 mg PO BID Qty: 60 0RF clonazepam 0.5 mg Tablet 0.5 mg PO Q8H PRN (Reason: myoclonic jerks) Qty: 20 0RF Continued cholecalciferol (vitamin D3) 25 mcg (1,000 unit) capsule 25 mcg PO DAILY levothyroxine 75 mcg tablet 88 mcg PO DAILY@0600 ezetimibe [Zetia] 10 mg tablet 10 mg PO DAILY Qty: 30 6RF Repatha SureClick 140 mg/mL pen injector 140 mg subcut Q2W Qty: 2 11RF (DME) blood pressure monitor Kit See Rx Instructions .Route Qty: 1 0RF Rx Instructions: As directed metoprolol tartrate 50 mg tablet 50 mg PO BID Qty: 60 11RF aspirin 81 mg Tablet,Chewable 81 mg PO DAILY pantoprazole 40 mg Tablet,Delayed Release (Dr/Ec) 40 mg PO DAILY 30 Days Qty: 30 0RF amlodipine 2.5 mg Tablet 2.5 mg PO DAILY Qty: 60 6RF clopidogrel 75 mg Tablet 75 mg PO DAILY Qty: 30 11RF Discontinued furosemide [Lasix] 20 mg tablet 20 mg PO DAILY PRN (Reason: edema, sob, weight gain) Qty: 60 11RF Hold Instructions: Order Changed Referrals / Follow Up: Jose Hooks Chi, MD [Primary Care Provider] - Within 2 Weeks Disposition Disposition (needs filled in before D/C Order can be placed): Home, Self Care Charges/Coding Visit Charges Inpatient E&M: 97073 Disch Hosp >30min
[2023-05-23 13:15] VITALS: BMI 21.4
[2023-05-23 13:25] VITALS: BP 118/72; PULSE 60; RESP 16; TEMP 36.4; O2SAT 95
[2023-05-23 15:32] VITALS: O2SAT 91; O2SAT 95
[2023-05-26 12:07] LABS: ANTINUCLEAR ANTIBODIES DIRECT Negative (Negative)
== END 2023-05-23 16:05 | disposition home or self-care (01) | DRG 92 ==
LOC: ED 10:18 → PCU 13:07
PROVIDERS: Emergency Provider Emergency Medicine; PCP Family Medicine Geriatric Medicine
DX: R47.1 Dysarthria and anarthria (principal); I27.82 Chronic pulmonary embolism; G25.3 Myoclonus; I10 Essential (primary) hypertension; I65.22 Occlusion and stenosis of left carotid artery; E03.9 Hypothyroidism, unspecified; I25.10 Atherosclerotic heart disease of native coronary artery without angina pectoris; E78.5 Hyperlipidemia, unspecified; Z95.5 Presence of coronary angioplasty implant and graft; Z82.3 Family history of stroke; R53.1 Weakness
CPT/HCPCS: 36415; 70450; 70496; 70498; 70551; 70552; 71045; 71260; 74177; 80048; 80061; 80307; 81001; 82140; 84443; 84484; 85025; 85610; 85652; 85730; 86038; 86140; 86225; 86235; 93005; 93306; 94762; 95819; 97110; 97116; 97150; 97162; 97166; 97530; 97535; 99285; A9575; J7030; Q9967

== ENCOUNTER 2023-05-29 14:04 | Observation (INO) | payer MEDICARE, SELFPAY ==
[2023-04-13 08:14] VITALS: BMI 24.3
[2023-05-29] VITALS (8 sets, daily range): BP systolic 124–153; BP diastolic 73–89; PULSE 64–72; RESP 14–18; TEMP 36.5–36.8; O2SAT 94–100; BMI 24.2; BMI 23.4
--- NOTE | 2023-05-29 14:31 | ED.VIS.GI ---
HPI HPI - GI History of Present Illness Chief Complaint: GI Bleed Informant: patient and spouse/S.O. Narrative Narrative: 82-year-old gentleman was just discharged from the hospital a week ago on Eliquis after being diagnosed with pulmonary emboli. Now he is having some dark stools and when he brushes his teeth he is having bleeding from his gums that is minor and transient. Called doctor and was advised to come to the ER. Denies any other symptoms he is feeling okay, denies shortness of breath or chest pain right now. The significant other states that when he was on Eliquis in the past, he had the same thing happened and had acute blood loss anemia requiring transfusion of several units of blood. [facility] Medical History (Updated 05/29/23 @ 23:[address] 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 [place] BPH (benign prostatic hyperplasia) CAD (coronary artery disease) Cardiomyopathy in other diseases classified elsewhere Coronary artery disease D-dimer, elevated DDD (degenerative disc disease) Dyspnea on exertion Edema Essential hypertension Fibromyalgia GI bleed Hemorrhoid HTN (hypertension) Hyperlipidemia Hypothyroid Kidney stones Nasal sinus polyp Postoperative atrial fibrillation Premature atrial contractions Premature ventricular contraction Pulmonary embolism Pulmonary nodule Syncope TIA (transient ischemic attack) White coat syndrome with hypertension Home Medications aspirin 81 mg chewable tablet 81 mg PO DAILY HEART HEALTH 02/22/21 [History Last Taken 05/29/23] pantoprazole 40 mg tablet,delayed release 40 mg PO DAILY ACID REFUX 30 days #30 tabs 03/12/21 [Rx Last Taken 05/29/23] cholecalciferol (vitamin D3) 25 mcg (1,000 unit) capsule 25 mcg PO DAILY SUPPLEMENT 12/25/21 [History Last Taken 05/29/23] amlodipine 2.5 mg tablet 2.5 mg PO DAILY BLOOD PRESSURE #60 tabs 01/05/23 [Rx Last Taken 05/29/23] clopidogrel 75 mg tablet 75 mg PO DAILY BLOOD THINNER #30 tabs 01/05/23 [Rx Last Taken 05/29/23] blood pressure monitor #1 ea 01/15/23 [Rx Last Taken Unknown] evolocumab 140 mg/mL subcutaneous pen injector (Repatha SureMaganick) 140 mg subcut Q2W CHOLESTEROL #2 mL 01/15/23 [Rx Last Taken 05/27/23] ezetimibe 10 mg tablet (Zetia) 10 mg PO DAILY CHOLESTEROL #30 tabs 01/15/23 [Rx Last Taken 05/29/23] metoprolol tartrate 50 mg tablet 50 mg PO BID BLOOD PRESSURE #60 tabs 02/24/23 [Rx Last Taken 05/29/23] clonazepam 0.5 mg tablet 0.5 mg PO Q8H PRN myoclonic jerks #20 tabs 05/23/23 [Rx Last Taken Unknown] apixaban 5 mg tablet (Eliquis) 5 mg PO BID BLOOD THINNER 05/29/23 [History Last Taken 05/29/23] levothyroxine 88 mcg tablet 88 mcg PO DAILY THYROID 05/29/23 [History Last Taken 05/29/23] mirtazapine 7.5 mg tablet 7.5 mg PO QHS DEPRESSION 05/29/23 [History Last Taken 05/28/23] Allergy/AdvReac Type Severity Reaction Status Date / Time erythromycin base Allergy Hives Verified 05/29/23 14:05 amoxicillin [From Augmentin] AdvReac Severe Itching Verified 05/29/23 14:05 atorvastatin AdvReac Severe myalgias Verified 05/29/23 14:05 clavulanic acid AdvReac Severe Itching Verified 05/29/23 14:05 [From Augmentin] fenofibrate [From Tricor] AdvReac Severe myalgias Verified 05/29/23 14:05 levofloxacin [From Levaquin] AdvReac Unknown Unknown Verified 05/29/23 14:05 Family History Father CVA (cerebral vascular accident) Hypertension Heart disease Mother CAD (coronary artery disease) Brother Hypertension Brother CAD (coronary artery disease) Hypertension Sister Hypertension Sister Patent foramen ovale Sister Hypertension Lung cancer Other Dyspnea on exertion Surgical History H/O hemorrhoidectomy History of back surgery History of cholecystectomy History of coronary artery bypass graft x 3 (~02/26/21) History of coronary artery stent placement History of kidney surgery History of placement of stent in LAD coronary artery (01/05/23) History of radiofrequency ablation procedure for cardiac arrhythmia (~10/2002) Hx of appendectomy Hx of CABG Social History household members: none Smoking Status: Never smoker alcohol intake: never substance use type: does not use ROS ROS ED Constitutional Constitutional ED: Reports fatigue; Denies chills or fever(s) Eyes Eyes: Denies change in vision or diplopia ENT ENT ED: Reports other Details: gingival bleeding ; Denies rhinorrhea or sore throat Cardiovascular Cardiovascular: Denies chest pain or palpitations Respiratory/Chest Respiratory/Chest: Denies cough or dyspnea Gastrointestinal Gastrointestinal: Reports other Details: dark stools ; Denies abdominal pain, diarrhea, hematemesis, hematochezia, nausea or vomiting Genitourinary Genitourinary ED: Denies dysuria or hematuria Musculoskeletal Musculoskeletal: Denies back pain or neck pain Integumentary Denies abscess or rash Neurologic Neurologic: Denies headache(s), paresthesias or weakness Psychiatric Psychiatric: Denies anxiety or suicidal thoughts EXAM Physical Exam Const Vital Signs: 05/29/23 14:06 05/29/23 14:41 Temperature 98.2 F Temperature Source Temporal Pulse Rate 67 Pulse Rate [Sitting (for 1 minute prior to obtaining)] 64 Pulse Rate [Standing (for 1 minute prior to obtaining)] 68 Respiratory Rate 14 Blood Pressure 136/86 H Blood Pressure [Lying] 125/73 H Blood Pressure [Sitting (for 1 minute prior to obtaining)] 124/84 H Blood Pressure [Standing (for 1 minute prior to obtaining)] 130/78 H Blood Pressure Mean 102 Blood Pressure Mean [Lying] 90 Blood Pressure Mean [Sitting (for 1 minute prior to obtaining)] 97 Blood Pressure Mean [Standing (for 1 minute prior to obtaining)] 95 Pulse Ox 100 Oxygen Delivery Method Room Air Positive well nourished and well developed General Appearance ED: well developed and NAD HEENT Reports moist mucous membranes HEENT Narrative: There are multiple areas of gingival disease, there is no active bleeding, in the canines of the left maxillary dentition there is some evidence of recent bleeding. There is no sign of necrotic tissue or tenderness. normocephalic and atraumatic Eyes PERRL and EOMs intact bilaterally Neck full ROM and supple Resp normal respiratory effort and clear to auscultation bilaterally Cardio regular rate, regular rhythm and no murmurs GI non-tender and non-distended GI Narrative: On rectal, stool is light brown with no gross blood. Sent for Hemoccult. No rectal tenderness. Auscultation: normoactive bowel sounds Palpation: soft Back/Spine no CVA tenderness General Back: other FROM Extremity normal to inspection General Extremety ED: Negative for edema, pulses abnormal or tenderness General Extremity: Negative for edema or pulses abnormal Neuro oriented x3, CN's II-XII intact bilaterally and no sensory deficits noted Sensorium / Orientation: awake and alert Motor Exam: strength 5/5 throughout Skin no rashes or lesions noted and no wounds MDM MDM MDM Narrative Medical decision making narrative: Patient's stool was Hemoccult positive. His hemoglobin is 13.9 which is excellent, however it is down 1.3 g compared with 9 days ago. He is clinically and hemodynamically stable, but given his recent PE diagnosis, he will need to still be anticoagulated so I think he will need to have EGD to determine why he is bleeding to see if intervention can be done. I discussed that with Dr. Friend he is in agreement and will consult on the patient. Ordered the patient Protonix bolus and drip. He is clinically and hemodynamically stable, discussed with hospitalist for admission. Lab Data Attestation: I reviewed the patient's lab results. Labs: Laboratory Results - last 24 hr 05/29/23 14:40 WBC 7.3 RBC 4.32 L Hgb 13.9 Hct 41.2 MCV 95.4 H MCH 32.2 H MCHC 33.7 RDW Std Deviation 43.1 RDW Coeff of Sukumar 12.4 Plt Count 370 MPV 9.0 Immature Gran % (Auto) 1.200 H Neut % (Auto) 69.1 Lymph % (Auto) 13.6 L [place] % (Auto) 9.2 Eos % (Auto) 6.3 H Baso % (Auto) 0.6 Absolute Neuts (auto) 5.0 Absolute Lymphs (auto) 0.99 Nucleated RBC % 0 PT 17.0 H INR 1.4 APTT 35.4 Sodium 144 Potassium 4.1 Chloride 113 H Carbon Dioxide 28.0 Anion Gap 3 L BUN 24 H Creatinine 1.06 Estim Creat Clear Calc 57.39 Est GFR (MDRD) Af Amer 86 Est GFR (MDRD) Non-Af 71 BUN/Creatinine Ratio 22.6 H Glucose 108 H Calcium 8.5 Magnesium 2.1 Blood Type O POSITIVE Antibody Screen NEGATIVE Management Discussion w/another healthcare provider: Hospitalist and [employer] (GI friend) Discharge Plan Dx/Rx/DC Orders Clinical Impression: Anticoagulated by anticoagulation treatment, ABLA (acute blood loss anemia), Acute upper gastrointestinal bleeding, Bilateral pulmonary embolism Disposition Disposition: Acute Care Hospital [facility] Discharge Date/Time: 05/29/23 17:16
[2023-05-29 14:50] LABS: Absolute Lymphocyte Count 0.99 X10^3/uL (0.83-4.51); Basophil# 0.04 X10^3/uL; Basophil% 0.6 % (0-1); Eosinophil# 0.46 X10^3/uL; Eosinophils% 6.3 % (0-5); Hematocrit 41.2 % (40-54); Hemoglobin 13.9 g/dL (13.0-16.5); Lymphocyte # 0.99 X10^3/ul (0.83-4.51); Lymphocyte % 13.6 % (19-41); Mean Corp Hgb Conc 33.7 g/dL (32-36); Mean Corpuscular Hgb 32.2 pg (27.0-32.0); Mean Corpuscular Volume 95.4 fL (80-94); Monocyte# 0.67 X10^3/uL; Monocyte% 9.2 % (0-10); NRBC Flagged by Analyzer 0 % (0-5); Neutrophil # 5.02 X10^3/uL (2.7-7.7); Neutrophil % 69.1 % (47-70); Platelet Count 370 K/mm3 (150-450); RBC Distribution Width CV 12.4 % (11.6-14.6); RBC Distribution Width SD 43.1 fl (35.1-43.9); Red Blood Count 4.32 M/mm3 (4.6-6.2); White Blood Count 7.3 K/mm3 (4.4-11.0)
[2023-05-29 15:06] LABS: Anion Gap 3 (5-15); BUN 24 mg/dL (7-18); BUN/Creat Ratio 22.6 RATIO (10-20); Calcium,Total 8.5 mg/dL (8.5-10.1); Chloride 113 mmol/L (98-107); Creatinine, Serum 1.06 mg/dL (0.70-1.30); EST Glomerular Filtration Rate 71 mL/min (>60); Est Glom Filt Rate - Afr Amer 86 mL/min (>60); Estimated Creatinine Clearance 57.39 ml/min; Glucose 108 mg/dL (74-106); Potassium 4.1 mmol/L (3.5-5.1); Sodium Level 144 mmol/L (136-145)
[2023-05-29] MEDS: Pantoprazole Sodium 80 MG in 0.9% Normal Saline (50mL Bag) 15 ML 420 MG IV BOLUS (15:45)
--- NOTE | 2023-05-29 16:01 | PCM.HP.STD ---
HPI - General General Date of Admission: 05/29/23 Date of Service: 05/29/23 Chief Complaint: Dark stools, bleeding from his gums. HPI Narrative The patient is an 82 y/o M w/ PMHx: Postoperative Hx PAF, HTN, HLD, Hypothyroidism, GERD, CAD s/p CABG and recent 01/06/2023 PCI, BPH, admission 05/20/23-05/23/23 with dysarthria as well as weakness with no evidence of any acute CVA with MRI of the brain demonstrating involutional and chronic ischemic changes, EEG negative, TSH/ammonia levels normal, UDS negative, pending paraneoplastic as well as autoimmune workup and unfortunate inability to obtain LP during presentation secondary to recent PCI with inability to hold Plavix with teleneurology recommendation for evaluation at a larger institution at follow-up with incidental CTPA noting multiple bilateral pulmonary emboli with early signs of right heart strain started on Eliquis with echo demonstrating EF 55 to 60% discharged to home who now re-presents to the [facility] ED on 05/29/23 with history of onset of dark black appearing stools and bleeding from his gums since initiating recent Eliquis therapy prompting ED evaluation. Patient denies any marked symptoms from the anemia with no dyspnea, chest pain, lightheadedness or dizziness. He does state that when he had been on Eliquis in the past he had a similar occurrence with acute blood loss anemia and did require transfusions at that time. In the ED patient with light brown stool with no gross blood noted despite positive Hemoccult. In the ED also no active bleeding from the gums. Workup in the ED included T98.2, heart 67, BP 136/86, respiratory rate 14, 100% room air, orthostatics not marked appearing, CBC with WBC 7.3, hemoglobin 13.9, MCV 95.4, platelet 370 with mild increased immature granulocytes, BMP with chloride 113, BUN/creatinine 24/1.06, glucose 108 otherwise not marked appearing, stool guaiac positive, type and screen initiated per ED physician. In the ED patient ministered Protonix bolus with drip ongoing. ED discussed case with Dr. Rose. [facility] Medical History (Updated 05/29/23 @ 18:[address] Kusum Bishop MD) Acid reflux Atherosclerotic heart disease of [place] coronary artery without angina pectoris 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 Bigeminy BPH (benign prostatic hyperplasia) CAD (coronary artery disease) Cardiomyopathy in other diseases classified elsewhere Coronary artery disease D-dimer, elevated DDD (degenerative disc disease) Dyspnea on exertion Edema Essential hypertension Fibromyalgia GI bleed Hemorrhoid HTN (hypertension) Hyperlipidemia Hypothyroid Kidney stones Nasal sinus polyp Postoperative atrial fibrillation Premature atrial contractions Premature ventricular contraction Pulmonary embolism Pulmonary nodule Syncope TIA (transient ischemic attack) White coat syndrome with hypertension Home Medications aspirin 81 mg chewable tablet 81 mg PO DAILY HEART HEALTH 02/22/21 [History Last Taken 05/29/23] pantoprazole 40 mg tablet,delayed release 40 mg PO DAILY ACID REFUX 30 days #30 tabs 03/12/21 [Rx Last Taken 05/29/23] cholecalciferol (vitamin D3) 25 mcg (1,000 unit) capsule 25 mcg PO DAILY SUPPLEMENT 12/25/21 [History Last Taken 05/29/23] amlodipine 2.5 mg tablet 2.5 mg PO DAILY BLOOD PRESSURE #60 tabs 01/05/23 [Rx Last Taken 05/29/23] clopidogrel 75 mg tablet 75 mg PO DAILY BLOOD THINNER #30 tabs 01/05/23 [Rx Last Taken 05/29/23] blood pressure monitor #1 ea 01/15/23 [Rx Last Taken Unknown] evolocumab 140 mg/mL subcutaneous pen injector (Essie Day) 140 mg subcut Q2W CHOLESTEROL #2 mL 01/15/23 [Rx Last Taken 05/27/23] ezetimibe 10 mg tablet (Zetia) 10 mg PO DAILY CHOLESTEROL #30 tabs 01/15/23 [Rx Last Taken 05/29/23] metoprolol tartrate 50 mg tablet 50 mg PO BID BLOOD PRESSURE #60 tabs 02/24/23 [Rx Last Taken 05/29/23] clonazepam 0.5 mg tablet 0.5 mg PO Q8H PRN myoclonic jerks #20 tabs 05/23/23 [Rx Last Taken Unknown] apixaban 5 mg tablet (Eliquis) 5 mg PO BID BLOOD THINNER 05/29/23 [History Last Taken 05/29/23] levothyroxine 88 mcg tablet 88 mcg PO DAILY THYROID 05/29/23 [History Last Taken 05/29/23] mirtazapine 7.5 mg tablet 7.5 mg PO QHS DEPRESSION 05/29/23 [History Last Taken 05/28/23] Allergy/AdvReac Type Severity Reaction Status Date / Time erythromycin base Allergy Hives Verified 05/29/23 14:05 amoxicillin [From Augmentin] AdvReac Severe Itching Verified 05/29/23 14:05 atorvastatin AdvReac Severe myalgias Verified 05/29/23 14:05 clavulanic acid AdvReac Severe Itching Verified 05/29/23 14:05 [From Augmentin] fenofibrate [From Tricor] AdvReac Severe myalgias Verified 05/29/23 14:05 levofloxacin [From Levaquin] AdvReac Unknown Unknown Verified 05/29/23 14:05 Family History Father CVA (cerebral vascular accident) Hypertension Heart disease Mother CAD (coronary artery disease) Brother Hypertension Brother CAD (coronary artery disease) Hypertension Sister Hypertension Sister Patent foramen ovale Sister Hypertension Lung cancer Other Dyspnea on exertion Surgical History H/O hemorrhoidectomy History of back surgery History of cholecystectomy History of coronary artery bypass graft x 3 (~02/26/21) History of coronary artery stent placement History of kidney surgery History of placement of stent in LAD coronary artery (01/05/23) History of radiofrequency ablation procedure for cardiac arrhythmia (~10/2002) Hx of appendectomy Hx of CABG Social History household members: none Smoking Status: Never smoker alcohol intake: never substance use type: does not use ROS ROS Narrative Admission Review of Systems: CONSTITUTIONAL: No weight loss, fever, chills, + weakness or fatigue. HEENT: + bleeding gums. Eyes: No visual loss, blurred vision, double vision or yellow sclerae. Ears, Nose, Throat: No hearing loss, sneezing, congestion, runny nose or sore throat. SKIN: No rash or itching, lesions, wounds. CARDIOVASCULAR: + Edema. No chest pain, chest pressure or chest discomfort, palpitations, orthopnea, syncopal events. RESPIRATORY: No shortness of breath, cough or sputum, wheezing, hemoptysis. GASTROINTESTINAL: + Dark appearing stools. No anorexia, nausea, vomiting or diarrhea, abdominal pain, BRBPR. GENITOURINARY: No dysuria, frequency, urgency or retention. NEUROLOGICAL: + Occasional myoclonic jerks, recent admission for dysarthria which appears resolved. No headache, dizziness, syncope, paralysis, ataxia, numbness or tingling in the extremities, focal weakness, change in bowel or bladder control, seizure. MUSCULOSKELETAL: + muscle, back pain, joint pain or stiffness. HEMATOLOGIC: No anemia. + Recent bleeding, easy bruising. LYMPHATICS: No enlarged nodes. No history of splenectomy. PSYCHIATRIC: + History anxiety and depression. ENDOCRINOLOGIC: No reports of sweating, cold or heat intolerance. No polyuria or polydipsia. ALLERGIES: + Hx hives. Vital Signs Vital Signs Vital Signs: 05/29/23 14:06 05/29/23 14:41 Temperature 98.2 F Temperature Source Temporal Pulse Rate 67 Pulse Rate [Sitting (for 1 minute prior to obtaining)] 64 Pulse Rate [Standing (for 1 minute prior to obtaining)] 68 Respiratory Rate 14 Blood Pressure 136/86 H Blood Pressure [Lying] 125/73 H Blood Pressure [Sitting (for 1 minute prior to obtaining)] 124/84 H Blood Pressure [Standing (for 1 minute prior to obtaining)] 130/78 H Blood Pressure Mean 102 Blood Pressure Mean [Lying] 90 Blood Pressure Mean [Sitting (for 1 minute prior to obtaining)] 97 Blood Pressure Mean [Standing (for 1 minute prior to obtaining)] 95 Pulse Ox 100 Oxygen Delivery Method Room Air Weight Weight: 168 lb 10.458 oz Body Mass Index (BMI) 24.2 Physical Exam Narrative Physical Examination: General: Awake, alert, oriented x 3 and cooperative, seated upright in ED bed, fatigued otherwise no acute complaints. Skin: Normal color, normal turgor, no icterus, no cyanosis except occasional staged ecchymoses, abrasion. HEENT: AT/NC, EOMI, PERRLA, mildly dry MM, no carotid bruits or JVD noted. Lungs: Mildly diminished, greater bases, appropriate effort no rales, ronchi or wheezing. Heart: Regular rate and rhythm; no gallop, rub audible. Abdomen: Soft, NTTP, ND, hyperactive BS, no appreciated HSM. Extremities: No cyanosis, no clubbing, peripheral pedal to distal harding edema noted. Neurological: Patient awake, alert, oriented as noted, cognitive function intact; pupils equally reactive to light and accommodation, cranial nerves grossly normal, moving all 4 extremities, no focal deficits, strength moderately globally decreased secondary to acute presentation and underlying comorbidities. Psychiatric: Affect appears fatigued otherwise normal, no acute evidence of depressive or anxiety feelings but does have underlying history. Results Lab / Micro Data 05/29/23 14:40 05/29/23 14:40 Labs: Laboratory Results - last 24 hr 05/29/23 14:40: WBC 7.3, RBC 4.32 L, Hgb 13.9, Hct 41.2, MCV 95.4 H, MCH 32.2 H, MCHC 33.7, RDW Std Deviation 43.1, RDW Coeff of Sukumar 12.4, Plt Count 370, MPV 9.0, Immature Gran % (Auto) 1.200 H, Neut % (Auto) 69.1, Lymph % (Auto) 13.6 L, Bracken % (Auto) 9.2, Eos % (Auto) 6.3 H, Baso % (Auto) 0.6, Absolute Neuts (auto) 5.0, Absolute Lymphs (auto) 0.99, Nucleated RBC % 0, Sodium 144, Potassium 4.1, Chloride 113 H, Carbon Dioxide 28.0, Anion Gap 3 L, BUN 24 H, Creatinine 1.06, Estim Creat Clear Calc 57.39, Est GFR (MDRD) Af Amer 86, Est GFR (MDRD) Non-Af 71, BUN/Creatinine Ratio 22.6 H, Glucose 108 H, Calcium 8.5, Blood Type O POSITIVE, Antibody Screen NEGATIVE Micro: Microbiology 05/29/23 14:35 Stool Stool Occult Blood (CHRIS) - Final Occult Blood Positive Assessment & Plan Assessment/Plan (1) GI bleed: PLAN: Plan The patient is an 82 y/o M w/ PMHx: Postoperative Hx PAF, HTN, HLD, Hypothyroidism, GERD, CAD s/p CABG and recent 01/06/2023 PCI, BPH, admission 05/20/23-05/23/23 with dysarthria as well as weakness with no evidence of any acute CVA with MRI of the brain demonstrating involutional and chronic ischemic changes, EEG negative, TSH/ammonia levels normal, UDS negative, pending paraneoplastic as well as autoimmune workup and unfortunate inability to obtain LP during presentation secondary to recent PCI with inability to hold Plavix with teleneurology recommendation for evaluation at a larger institution at follow-up with incidental CTPA noting multiple bilateral pulmonary emboli with early signs of right heart strain started on Eliquis with echo demonstrating EF 55 to 60% discharged to home who now re-presents to the [facility] ED on 05/29/23 with history of onset of dark black appearing stools and bleeding from his gums since initiating recent Eliquis therapy prompting ED evaluation. #1. Acute GI Bleed w/ resultant Acute Blood Loss Anemia recently initiated on anticoagulation secondary to #2 complicated by recent PCI and necessity also of antiplatelet therapy: Admission Hgb 13.9 decreased from recent 05/20/2023 hemoglobin 15.2, will admit to PCU, holding eliquis, continue antiplt therapy given recent PCI, given BL PE with early strain concern will place on heparin drip in the interim, may necessitate vascular involvement for consideration IVC depending on Hgb trending and also findings on endoscopies, cycle H+Hs, maintain on IV PPI, NPO after midnight, GI consulted. #2. Recent BL Pulmonary Emboli with early cardiac strain concern: Given presentation will temporally hold Eliquis with transition given recent significant bilateral pulmonary emboli with early strain evident to heparin drip pending GI evaluation as noted, unfortunately patient may need consideration of IVC filter placement if intervention delayed or unable to find source. #3. Recent presentation for dysarthria and general weakness: As noted MRI of the brain with no acute findings, EEG negative, TSH and ammonia levels normal, UDS negative, pending paraneoplastic and autoimmune workup with at discharge recommendation to follow-up at tertiary facility and per patient preference [facility] given atypical presentation per neurology recommendation. As noted previously unable to perform LP during previous admission secondary to inability to hold Plavix. #4. CAD: Most recent intervention 01/06/2023 with noted 90% proximal, 70% mid LAD, ARMSTRONG to LAD atretic, 80% anastomotic lesion, 100% mid LCx, SVG to OM 100%, OM2 filling retrogradely via collaterals from the R PLV, 1 9% proximal RCA, SVG to RPDA patent, [place] RPDA DA 60% distal, small 1.5 mm vessel, successful REKHA mid LAD, successful REKHA proximal LAD with aspirin indefinitely and noted intention for Plavix for at least 12 months. Given current presentation unfortunately will need to continue Plavix, not on statin therapy but will continue Zetia and noted to be on Repatha outpatient, continue metoprolol, not on JOAQUIM or/ARB. #5. Hypertension: Continue home regimen including metoprolol, amlodipine, PRN hydralazine. #6. Hyperlipidemia: Patient is on Zetia, not on statin therapy with myalgias reported with outpatient Repatha therapy noted. #7. Hypothyroidism: We will continue patient home levothyroxine regimen. #8. History of postoperative PAF: s/p prior RFA. Patient currently upon presentation recently initiated on Eliquis secondary to concurrent new diagnosis of multiple bilateral pulmonary emboli however presents with bleeding as noted, complicates presentation, continue home metoprolol therapy with hold parameters as needed. #9. GERD: As noted we will maintain on PPI. #10. DVT prophylaxis: Given presentation as noted holding Eliquis but transition to heparin drip given recent bilateral PE with early strain concern pending GI evaluation with hold pending hemoglobin trending. #11. CODE status: Patient AGGIE is his daughter and living will is currently in place. Discussed CODE status at length including difference between FULL code, DNR-CCA and DNR-CC status. Following discussions about the differences in these status, requested Full Code status. Advanced Care Planning Face to Face Time: 16 minutes. Charges/Coding Visit Charges Inpatient E&M: 65293 Init Hosp L3 Procedures Hospitalists Procedures: 65648 Advncd Care Plan 30 Min
--- NOTE | 2023-05-29 16:29 | NURSING ---
PCU WHITE GIB, ABLA, PE
[2023-05-29] MEDS: Pantoprazole Sodium 80 MG in 0.9% Normal Saline (100mL Bag) 80 ML 10 MG CONT INF ×2 (16:40→19:02)
[2023-05-29 16:59] LABS: Magnesium 2.1 mg/dL (1.6-2.6)
[2023-05-29 17:19] LABS: International Normalized Ratio 1.4; Partial Thromboplast Time 35.4 Seconds (24.1-36.2)
[2023-05-29] MEDS: 0.9% Normal Saline (1000mL) 1,000 ML 75 ML IV (18:58)
[2023-05-29] MEDS: Bisacodyl 5 MG Tablet 20 MG PO (18:58)
[2023-05-29] MEDS: HEPARIN/D5w 25,000 UNITS 25,000 UNITS/250 ML IV.SOLN. 11 UNITS CONT INF (19:00)
[2023-05-29 19:05] LABS: Hematocrit 39.4 % (40-54); Hemoglobin 13.2 g/dL (13.0-16.5)
[2023-05-29] MEDS: Metoclopramide 10 MG/2 ML Vial IV (19:41)
[2023-05-29] MEDS: 0.9% Saline Lock 10 ML Syringe IV (19:41)
[2023-05-29] MEDS: Polyethylene Glycol 3350 BOWEL PREP PO (20:06)
[2023-05-29] MEDS: Mirtazapine 15 MG Tablet 7.5 MG PO (21:50)
[2023-05-29] MEDS: Metoprolol Tartrate 50 MG Tablet PO (21:50)
--- NOTE | 2023-05-29 21:59 | NURSING ---
pt drank 160z total of bowel prep , refused to continue drinking bowel preparation. Notified .
--- NOTE | 2023-05-29 23:00 | EX.PCM.CON.G ---
HPI Consult Data Date of Consult: 05/29/23 HPI Narrative Reason for Consultation: GI bleed HPI Narrative: KULWANT ANDRADE, is a 82 M who presents with multiple episodes of blood per rectum and melanotic stools. He was just discharged from the hospital a week ago on Eliquis after being diagnosed with pulmonary emboli. Now he is having some dark stools and when he brushes his teeth he is having bleeding from his gums that is minor and transient. He called his doctor and was advised to come to the ER. Denies any other symptoms he is feeling okay, denies shortness of breath or chest pain right now. The significant other states that when he was on Eliquis in the past, he had the same thing happened and had acute blood loss anemia requiring transfusion of several units of blood. He has a past medical history of PAF, HTN, HLD, Hypothyroidism, GERD, CAD s/p CABG and recent 01/06/2023 PCI, BPH, admission 05/20/23-05/23/23 with dysarthria as well as weakness with no evidence of any acute CVA with MRI of the brain demonstrating involutional and chronic ischemic changes, EEG negative, TSH/ammonia levels normal, UDS negative, pending paraneoplastic as well as autoimmune workup. CTPA noting multiple bilateral pulmonary emboli with early signs of right heart strain started on Eliquis with echo demonstrating EF 55 to 60%. He was discharged to home who now re-presents to the [facility] ED on 05/29/23 with history of onset of dark black appearing stools and bleeding from his gums since initiating recent Eliquis therapy prompting ED evaluation. Patient denies any marked symptoms from the anemia with no dyspnea, chest pain, lightheadedness or dizziness. He does state that when he had been on Eliquis in the past he had a similar occurrence with acute blood loss anemia and did require transfusions at that time. In the ED patient with light brown stool with no gross blood noted despite positive Hemoccult. In the ED also no active bleeding from the gums. Workup in the ED included T98.2, heart 67, BP 136/86, respiratory rate 14, 100% room air, orthostatics not marked appearing, CBC with WBC 7.3, hemoglobin 13.9, MCV 95.4, platelet 370 with mild increased immature granulocytes, BMP with chloride 113, BUN/creatinine 24/1.06, glucose 108 otherwise not marked appearing, stool guaiac positive, type and screen initiated per ED physician. [facility] Medical History (Updated 05/30/23 @ 08:[address] España Friend, DO) Acid reflux Atherosclerotic heart disease of [place] coronary artery without angina pectoris 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 Bigeminy BPH (benign prostatic hyperplasia) CAD (coronary artery disease) Cardiomyopathy in other diseases classified elsewhere Coronary artery disease D-dimer, elevated DDD (degenerative disc disease) Dyspnea on exertion Edema Essential hypertension Fibromyalgia GI bleed Hemorrhoid HTN (hypertension) Hyperlipidemia Hypothyroid Kidney stones Nasal sinus polyp Postoperative atrial fibrillation Premature atrial contractions Premature ventricular contraction Pulmonary embolism Pulmonary nodule Syncope TIA (transient ischemic attack) White coat syndrome with hypertension Home Medications aspirin 81 mg chewable tablet 81 mg PO DAILY HEART HEALTH 02/22/21 [History Last Taken 05/29/23] pantoprazole 40 mg tablet,delayed release 40 mg PO DAILY ACID REFUX 30 days #30 tabs 03/12/21 [Rx Last Taken 05/29/23] cholecalciferol (vitamin D3) 25 mcg (1,000 unit) capsule 25 mcg PO DAILY SUPPLEMENT 12/25/21 [History Last Taken 05/29/23] amlodipine 2.5 mg tablet 2.5 mg PO DAILY BLOOD PRESSURE #60 tabs 01/05/23 [Rx Last Taken 05/29/23] clopidogrel 75 mg tablet 75 mg PO DAILY BLOOD THINNER #30 tabs 01/05/23 [Rx Last Taken 05/29/23] blood pressure monitor #1 ea 01/15/23 [Rx Last Taken Unknown] evolocumab 140 mg/mL subcutaneous pen injector (Essie Day) 140 mg subcut Q2W CHOLESTEROL #2 mL 01/15/23 [Rx Last Taken 05/27/23] ezetimibe 10 mg tablet (Zetia) 10 mg PO DAILY CHOLESTEROL #30 tabs 01/15/23 [Rx Last Taken 05/29/23] metoprolol tartrate 50 mg tablet 50 mg PO BID BLOOD PRESSURE #60 tabs 02/24/23 [Rx Last Taken 05/29/23] clonazepam 0.5 mg tablet 0.5 mg PO Q8H PRN myoclonic jerks #20 tabs 05/23/23 [Rx Last Taken Unknown] apixaban 5 mg tablet (Eliquis) 5 mg PO BID BLOOD THINNER 05/29/23 [History Last Taken 05/29/23] levothyroxine 88 mcg tablet 88 mcg PO DAILY THYROID 05/29/23 [History Last Taken 05/29/23] mirtazapine 7.5 mg tablet 7.5 mg PO QHS DEPRESSION 05/29/23 [History Last Taken 05/28/23] Allergy/AdvReac Type Severity Reaction Status Date / Time erythromycin base Allergy Hives Verified 05/29/23 14:05 amoxicillin [From Augmentin] AdvReac Severe Itching Verified 05/29/23 14:05 atorvastatin AdvReac Severe myalgias Verified 05/29/23 14:05 clavulanic acid AdvReac Severe Itching Verified 05/29/23 14:05 [From Augmentin] fenofibrate [From Tricor] AdvReac Severe myalgias Verified 05/29/23 14:05 levofloxacin [From Levaquin] AdvReac Unknown Unknown Verified 05/29/23 14:05 Family History Father CVA (cerebral vascular accident) Hypertension Heart disease Mother CAD (coronary artery disease) Brother Hypertension Brother CAD (coronary artery disease) Hypertension Sister Hypertension Sister Patent foramen ovale Sister Hypertension Lung cancer Other Dyspnea on exertion Surgical History H/O hemorrhoidectomy History of back surgery History of cholecystectomy History of coronary artery bypass graft x 3 (~02/26/21) History of coronary artery stent placement History of kidney surgery History of placement of stent in LAD coronary artery (01/05/23) History of radiofrequency ablation procedure for cardiac arrhythmia (~10/2002) Hx of appendectomy Hx of CABG Social History household members: none Smoking Status: Never smoker alcohol intake: never substance use type: does not use ROS ROS Narrative Admission Review of Systems: CONSTITUTIONAL: No weight loss, fever, chills, + weakness or fatigue. HEENT: + bleeding gums. Eyes: No visual loss, blurred vision, double vision or yellow sclerae. Ears, Nose, Throat: No hearing loss, sneezing, congestion, runny nose or sore throat. SKIN: No rash or itching, lesions, wounds. CARDIOVASCULAR: + Edema. No chest pain, chest pressure or chest discomfort, palpitations, orthopnea, syncopal events. RESPIRATORY: No shortness of breath, cough or sputum, wheezing, hemoptysis. GASTROINTESTINAL: + Dark appearing stools. No anorexia, nausea, vomiting or diarrhea, abdominal pain, BRBPR. GENITOURINARY: No dysuria, frequency, urgency or retention. NEUROLOGICAL: + Occasional myoclonic jerks, recent admission for dysarthria which appears resolved. No headache, dizziness, syncope, paralysis, ataxia, numbness or tingling in the extremities, focal weakness, change in bowel or bladder control, seizure. MUSCULOSKELETAL: + muscle, back pain, joint pain or stiffness. HEMATOLOGIC: No anemia. + Recent bleeding, easy bruising. LYMPHATICS: No enlarged nodes. No history of splenectomy. PSYCHIATRIC: + History anxiety and depression. ENDOCRINOLOGIC: No reports of sweating, cold or heat intolerance. No polyuria or polydipsia. ALLERGIES: + Hx hives. Physical Exam Narrative Physical Examination: General: Awake, alert, oriented x 3 and cooperative, seated upright in ED bed, fatigued otherwise no acute complaints. Skin: Normal color, normal turgor, no icterus, no cyanosis except occasional staged ecchymoses, abrasion. HEENT: AT/NC, EOMI, PERRLA, mildly dry MM, no carotid bruits or JVD noted. Lungs: Mildly diminished, greater bases, appropriate effort no rales, ronchi or wheezing. Heart: Regular rate and rhythm; no gallop, rub audible. Abdomen: Soft, NTTP, ND, hyperactive BS, no appreciated HSM. Extremities: No cyanosis, no clubbing, peripheral pedal to distal harding edema noted. Neurological: Patient awake, alert, oriented as noted, cognitive function intact; pupils equally reactive to light and accommodation, cranial nerves grossly normal, moving all 4 extremities, no focal deficits, strength moderately globally decreased secondary to acute presentation and underlying comorbidities. Psychiatric: Affect appears fatigued otherwise normal, no acute evidence of depressive or anxiety feelings but does have underlying history. Lab / Micro Data 05/30/23 06:45 05/30/23 06:45 Labs: Laboratory Results - last 24 hr 05/29/23 14:40: WBC 7.3, RBC 4.32 L, Hgb 13.9, Hct 41.2, MCV 95.4 H, MCH 32.2 H, MCHC 33.7, RDW Std Deviation 43.1, RDW Coeff of Sukumar 12.4, Plt Count 370, MPV 9.0, Immature Gran % (Auto) 1.200 H, Neut % (Auto) 69.1, Lymph % (Auto) 13.6 L, [place] % (Auto) 9.2, Eos % (Auto) 6.3 H, Baso % (Auto) 0.6, Absolute Neuts (auto) 5.0, Absolute Lymphs (auto) 0.99, Nucleated RBC % 0, PT 17.0 H, INR 1.4, APTT 35.4, Sodium 144, Potassium 4.1, Chloride 113 H, Carbon Dioxide 28.0, Anion Gap 3 L, BUN 24 H, Creatinine 1.06, Estim Creat Clear Calc 57.39, Est GFR (MDRD) Af Amer 86, Est GFR (MDRD) Non-Af 71, BUN/Creatinine Ratio 22.6 H, Glucose 108 H, Calcium 8.5, Magnesium 2.1, Blood Type O POSITIVE, Antibody Screen NEGATIVE 05/29/23 18:50: Hgb 13.2, Hct 39.4 L 05/29/23 23:11: Hgb 13.8, Hct 41.8 05/30/23 01:15: Hgb 14.0, Hct 41.9, APTT 91.1 H* 05/30/23 06:45: WBC 7.5, RBC 4.24 L, Hgb 13.6, Hct 40.3, MCV 95.0 H, MCH 32.1 H, MCHC 33.7, RDW Std Deviation 42.5, RDW Coeff of Sukumar 12.3, Plt Count 339, MPV 8.9, Immature Gran % (Auto) 0.900, Neut % (Auto) 69.6, Lymph % (Auto) 15.0 L, [place] % (Auto) 9.0, Eos % (Auto) 5.0, Baso % (Auto) 0.5, Absolute Neuts (auto) 5.2, Absolute Lymphs (auto) 1.12, Nucleated RBC % 0, Sodium 144, Potassium 3.9, Chloride 115 H, Carbon Dioxide 26.0, Anion Gap 3 L, BUN 19 H, Creatinine 1.10, Estim Creat Clear Calc 56.59, Est GFR (MDRD) Af Amer 83, Est GFR (MDRD) Non-Af 68, BUN/Creatinine Ratio 17.3, Glucose 87, Calcium 8.5, Total Bilirubin 1.00, AST 10 L, ALT 19, Alkaline Phosphatase 67, Total Protein 5.6 L, Albumin 2.5 L, Globulin 3.1, Albumin/Globulin Ratio 0.8 L Micro: Microbiology 05/29/23 14:35 Stool Stool Occult Blood (CHRIS) - Final Occult Blood Positive Assessment & Plan Assessment/Plan (1) GI bleed: QUALIFIERS: GI bleed type/associated pathology: unspecified gastrointestinal hemorrhage type Qualified Code(s): K92.2 - Gastrointestinal hemorrhage, unspecified PLAN: Plan The patient is an 82 y/o with past medical history of PAF, HTN, HLD, Hypothyroidism, GERD, CAD s/p CABG and recent 01/06/2023 PCI, BPH, admission 05/20/23-05/23/23 with dysarthria as well as weakness with no evidence of any acute CVA .he also had a CTPA noting multiple bilateral pulmonary emboli with early signs of right heart strain started on Eliquis with echo demonstrating EF 55 to 60% discharged to home who now re-presents to the [facility] ED on 05/29/23 with history of onset of dark black appearing stools and bleeding from his gums since initiating recent Eliquis therapy. Acute GI Bleed w/ resultant Acute Blood Loss Anemia recently initiated on anticoagulation secondary to #2 complicated by recent PCI and necessity also of antiplatelet therapy: Admission Hgb 13.9 decreased from recent 05/20/2023 hemoglobin 15.2, will admit to PCU, holding eliquis, hospitalist continued antiplatelet therapy given recent PCI, given BL PE with early strain concern he was placed on heparin drip in the interim He also has recent BL Pulmonary Emboli with early cardiac strain concern: His Eliquis is on hold. However given recent significant bilateral pulmonary emboli with early strain he was placed on a heparin drip. He should undergo an upper and lower endoscopy to evaluate his upper GI tract and lower GI tract for causes of GI bleed and underlying cause of patient's hypercoagulable state causing PE and possible TIA causing altered mental status. Charges/Coding Visit Charges Inpatient E&M: 45583 Init Hosp L3
[2023-05-29 23:26] LABS: Hematocrit 41.8 % (40-54); Hemoglobin 13.8 g/dL (13.0-16.5)
[2023-05-30] VITALS (9 sets, daily range): BP systolic 90–137; BP diastolic 78–93; PULSE 63–77; RESP 12–18; TEMP 36.1–36.6; O2SAT 93–97; BMI 22.9
[2023-05-30 01:32] LABS: Hematocrit 41.9 % (40-54)
[2023-05-30 02:36] LABS: Partial Thromboplast Time 91.1 Seconds (24.1-36.2)
[2023-05-30] MEDS: Pantoprazole Sodium 80 MG in 0.9% Normal Saline (100mL Bag) 80 ML 10 MG CONT INF (03:11)
[2023-05-30] MEDS: 0.9% Saline Lock 10 ML Syringe IV ×2 (05:56→12:33)
[2023-05-30] MEDS: Levothyroxine 88 MCG Tablet PO (05:56)
[2023-05-30] MEDS: Metoclopramide 10 MG/2 ML Vial IV ×2 (05:56→12:33)
[2023-05-30] MEDS: 0.9% Normal Saline (1000mL) 1,000 ML 75 ML IV (06:58)
[2023-05-30 07:00] LABS: Absolute Lymphocyte Count 1.12 X10^3/uL (0.83-4.51); Absolute Neutrophil Count 5.2 X10^3/uL (2.0-7.7); Basophil# 0.04 X10^3/uL; Basophil% 0.5 % (0-1); Eosinophil# 0.37 X10^3/uL; Hematocrit 40.3 % (40-54); Hemoglobin 13.6 g/dL (13.0-16.5); Lymphocyte # 1.12 X10^3/ul (0.83-4.51); Mean Corp Hgb Conc 33.7 g/dL (32-36); Mean Corpuscular Hgb 32.1 pg (27.0-32.0); Mean Platelet Vol. 8.9 fl (6.2-12.0); Monocyte# 0.67 X10^3/uL; NRBC Flagged by Analyzer 0 % (0-5); Neutrophil # 5.19 X10^3/uL (2.7-7.7); Neutrophil % 69.6 % (47-70); Platelet Count 339 K/mm3 (150-450); RBC Distribution Width CV 12.3 % (11.6-14.6); RBC Distribution Width SD 42.5 fl (35.1-43.9); Red Blood Count 4.24 M/mm3 (4.6-6.2); White Blood Count 7.5 K/mm3 (4.4-11.0)
[2023-05-30 07:17] LABS: ALB/GLOB Ratio 0.8 RATIO (0.9-2.4); AST(SGOT) 10 U/L (15-37); Alanine Aminotransfer ALT/SGPT 19 U/L (16-61); Albumin, Serum 2.5 g/dL (3.2-5.0); Alkaline Phosphatase 67 U/L (45-117); Anion Gap 3 (5-15); BUN 19 mg/dL (7-18); BUN/Creat Ratio 17.3 RATIO (10-20); Calcium,Total 8.5 mg/dL (8.5-10.1); Chloride 115 mmol/L (98-107); EST Glomerular Filtration Rate 68 mL/min (>60); Est Glom Filt Rate - Afr Amer 83 mL/min (>60); Estimated Creatinine Clearance 56.59 ml/min; Globulin 3.1 g/dL (2.2-4.2); Glucose 87 mg/dL (74-106); Potassium 3.9 mmol/L (3.5-5.1); Protein, Total 5.6 g/dL (6.4-8.2); Sodium Level 144 mmol/L (136-145)
--- NOTE | 2023-05-30 07:50 | PCM.PN.HOSP ---
Reason for Visit Reason for Visit: Diagnoses Gastrointestinal hemorrhage, unspecified (05/29/23) Objective Data Objective Data Vital Signs: Vital Signs Temp Pulse Resp BP Pulse Ox O2 Del Method 97.9 F 63 16 131/90 H 97 Room Air 05/30/23 03:45 05/30/23 03:45 05/30/23 03:45 05/30/23 03:45 05/30/23 03:45 05/30/23 03:47 Oxygen Delivery Method Room Air Weight: 164 lb 10.965 oz Body Mass Index (BMI) 22.9 Intake & Output: Intake and Output for Last 24 Hours 05/28/23 05/29/23 05/30/23 23:59 23:59 23:59 Intake Total 302.33 / 302.33 1065.47 / 1065.47 Balance 302.33 / 302.33 1065.47 / 1065.47 Lab / Micro Data 05/30/23 06:45 05/30/23 06:45 Labs: Laboratory Results - last 24 hr 05/29/23 14:40: WBC 7.3, RBC 4.32 L, Hgb 13.9, Hct 41.2, MCV 95.4 H, MCH 32.2 H, MCHC 33.7, RDW Std Deviation 43.1, RDW Coeff of Sukumar 12.4, Plt Count 370, MPV 9.0, Immature Gran % (Auto) 1.200 H, Neut % (Auto) 69.1, Lymph % (Auto) 13.6 L, [place] % (Auto) 9.2, Eos % (Auto) 6.3 H, Baso % (Auto) 0.6, Absolute Neuts (auto) 5.0, Absolute Lymphs (auto) 0.99, Nucleated RBC % 0, PT 17.0 H, INR 1.4, APTT 35.4, Sodium 144, Potassium 4.1, Chloride 113 H, Carbon Dioxide 28.0, Anion Gap 3 L, BUN 24 H, Creatinine 1.06, Estim Creat Clear Calc 57.39, Est GFR (MDRD) Af Amer 86, Est GFR (MDRD) Non-Af 71, BUN/Creatinine Ratio 22.6 H, Glucose 108 H, Calcium 8.5, Magnesium 2.1, Blood Type O POSITIVE, Antibody Screen NEGATIVE 05/29/23 18:50: Hgb 13.2, Hct 39.4 L 05/29/23 23:11: Hgb 13.8, Hct 41.8 05/30/23 01:15: Hgb 14.0, Hct 41.9, APTT 91.1 H* 05/30/23 06:45: WBC 7.5, RBC 4.24 L, Hgb 13.6, Hct 40.3, MCV 95.0 H, MCH 32.1 H, MCHC 33.7, RDW Std Deviation 42.5, RDW Coeff of Sukumar 12.3, Plt Count 339, MPV 8.9, Immature Gran % (Auto) 0.900, Neut % (Auto) 69.6, Lymph % (Auto) 15.0 L, [place] % (Auto) 9.0, Eos % (Auto) 5.0, Baso % (Auto) 0.5, Absolute Neuts (auto) 5.2, Absolute Lymphs (auto) 1.12, Nucleated RBC % 0, Sodium 144, Potassium 3.9, Chloride 115 H, Carbon Dioxide 26.0, Anion Gap 3 L, BUN 19 H, Creatinine 1.10, Estim Creat Clear Calc 56.59, Est GFR (MDRD) Af Amer 83, Est GFR (MDRD) Non-Af 68, BUN/Creatinine Ratio 17.3, Glucose 87, Calcium 8.5, Total Bilirubin 1.00, AST 10 L, ALT 19, Alkaline Phosphatase 67, Total Protein 5.6 L, Albumin 2.5 L, Globulin 3.1, Albumin/Globulin Ratio 0.8 L Micro: Microbiology 05/29/23 14:35 Stool Stool Occult Blood (CHRIS) - Final Occult Blood Positive Assessment & Plan Assessment/Plan (1) GI bleed: PLAN: Plan The patient is an 82 y/o M is being admitted for darker stool, bleeding gums which is minor and transient. Denies chest pain or shortness of breath. Recently patient was discharged 1 week ago on Eliquis after diagnosis with pulmonary embolism. #1. Acute GI Bleed w/ resultant Acute Blood Loss Anemia most likely due to anticoagulation/Eliquis and Plavix: Patient is being admitted in PCP. Patient baseline hemoglobin is around 14.5 and is maintained on diet. On IV PPI. N.p.o. after midnight. GI is consulted. 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 - Small hiatal hernia. - No gross lesions in the second portion of the duodenum. - No specimens collected. Recommendation: - [facility] to [facility]. - Resume previous diet. - Continue present medications. - Repeat EGD when patient can be off antiplatelets and anticoagulation for biopsies of Ogden's esophagus -Consider colonoscopy due to no evidence of acute GI bleed seen on his endoscopy #2. Recent BL Pulmonary Emboli with early cardiac strain concern: Hold Eliquis. On transient heparin drip until further GI evaluation. #3. Recent presentation for dysarthria and general weakness and myoclonus: As noted MRI of the brain with no acute findings, EEG negative, TSH and ammonia levels normal, U tox negative during last hospital workup. Patient was referred to tertiary facility for further workup of possible differential diagnosis of autoimmune workup and paraneoplastic process. LP could not be performed last time because of Plavix which needs to be continued for 12 months. #4. CAD: Most recent intervention 01/06/2023 with noted 90% proximal, 70% mid LAD, ARMSTRONG to LAD atretic, 80% anastomotic lesion, 100% mid LCx, SVG to OM 100%, OM2 filling retrogradely via collaterals from the R PLV, 1 9% proximal RCA, SVG to RPDA patent, tolowa dee-ni' RPDA DA 60% distal, small 1.5 mm vessel, successful REKHA mid LAD, successful REKHA proximal LAD with aspirin indefinitely and noted intention for Plavix for at least 12 months. Given current presentation unfortunately will need to continue Plavix, not on statin therapy but will continue Zetia and noted to be on Repatha outpatient, continue metoprolol, not on JOAQUIM or/ARB. #5. Hypertension: Continue home regimen including metoprolol, amlodipine, PRN hydralazine. #6. Hyperlipidemia: Patient is on Zetia, not on statin therapy with myalgias reported with outpatient Repatha therapy noted. #7. Hypothyroidism: We will continue patient home levothyroxine regimen. #8. History of postoperative PAF: s/p prior RFA. Patient currently upon presentation recently initiated on Eliquis secondary to concurrent new diagnosis of multiple bilateral pulmonary emboli however presents with bleeding as noted, complicates presentation, continue home metoprolol therapy with hold parameters as needed. #9. GERD: maintain on PPI. #10. DVT prophylaxis: Given presentation as noted holding Eliquis but transition to heparin drip given recent bilateral PE with early strain concern pending GI evaluation with hold pending hemoglobin trending. #11. CODE status: Patient AGGIE is his daughter and living will is currently in place. Discussed CODE status at length including difference between FULL code, DNR-CCA and DNR-CC status. Following discussions about the differences in these status, requested Full Code status. Advanced Care Planning Face to Face Time: 16 minutes. Charges/Coding Visit Charges Inpatient E&M: 00596 Subs Hosp L2
--- NOTE | 2023-05-30 08:44 | OP.CCLET_ITS ---
05/30/2023 Jose Hooks MD [address] [place] [address] Re : Upper GI endoscopy procedure for Janes Gaitan Dear Dr. Hooks This procedure was performed on Tuesday, May 30, 2023. 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 - Small hiatal hernia. - No gross lesions in the second portion of the duodenum. - No specimens collected. Recommendations : - [facility] patient to [facility] care. - Resume previous diet. - Continue present medications. - Repeat EGD when patient can be off antiplatelets and anticoagulation for biopsies of Ogden's esophagus -Consider colonoscopy due to no evidence of acute GI bleed seen on his endoscopy My findings are described in the full procedure note, which is enclosed. If I can be of further assistance, please feel free to contact me at . Sincerely, Taco Rose, 05/30/2023 8:43:11 AM This report has been signed electronically.
--- NOTE | 2023-05-30 08:44 | OP.EGD_ITS ---
Patient Name: Janes Gaitan Procedure Date: 05/30/2023 7:44 AM Date of : 1940 Age: 82 Procedure: Upper GI endoscopy Indications: Acute post hemorrhagic anemia, Melena Providers: Taco Rose DO Referring MD: Fred Tam Medicines: Monitored Anesthesia Care Patient Profile: This is an 82 year old male. Refer to note in patient chart for documentation of history and physical. Patient has symptoms of acute dyspepsia and acute nausea. Complications: No immediate complications. Procedure: Pre-Anesthesia Assessment: - Prior to the procedure, a History and Physical was performed, and patient medications and allergies were reviewed. The risks and benefits of the procedure and the sedation options and risks were discussed with the patient. All questions were answered and informed consent was obtained. Patient identification and proposed procedure were verified by the physician in the pre-procedure area. Mental Status Examination: alert and oriented. Airway Examination: normal oropharyngeal airway and neck mobility. Respiratory Examination: clear to auscultation. CV Examination: normal. Prophylactic Antibiotics: The patient does not require prophylactic antibiotics. Prior Anticoagulants: The patient has taken heparin, last dose was day of procedure. ASA Grade Assessment: III - A patient with severe systemic disease. After reviewing the risks and benefits, the patient was deemed in satisfactory condition to undergo the procedure. The anesthesia plan was to use monitored anesthesia care (MAC). Immediately prior to administration of medications, the patient was re-assessed for adequacy to receive sedatives. The heart rate, respiratory rate, oxygen saturations, blood pressure, adequacy of pulmonary ventilation, and response to care were monitored throughout the procedure. The physical status of the patient was re-assessed after the procedure. After obtaining informed consent, the endoscope was passed under direct vision. Throughout the procedure, the patient's blood pressure, pulse, and oxygen saturations were monitored continuously. The Colonoscope was introduced through the mouth, and advanced to the second part of duodenum. The upper GI endoscopy was accomplished without difficulty. The patient tolerated the procedure well. Scope In: 8:30:42 AM Scope Out: 8:34:23 AM Total Procedure Duration Time 0 hours 3 minutes 41 seconds Findings: There were esophageal mucosal changes suggestive of Ogden's esophagus present in the lower third of the esophagus. The maximum longitudinal extent of these mucosal changes was 3 cm in length. A small hiatal hernia was present. No other significant abnormalities were identified in a careful examination of the stomach. No gross lesions were noted in the second portion of the duodenum. 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 - Small hiatal hernia. - No gross lesions in the second portion of the duodenum. - No specimens collected. Recommendation: - Return patient to [facility] for ongoing care. - Resume previous diet. - Continue present medications. - Repeat EGD when patient can be off antiplatelets and anticoagulation for biopsies of Ogden's esophagus -Consider colonoscopy due to no evidence of acute GI bleed seen on his endoscopy Procedure Code(s): --- Professional --- 21958, Esophagogastroduodenoscopy, flexible, transoral; diagnostic, including collection of specimen(s) by brushing or washing, when performed (separate procedure) CPT copyright 2021 [employer]. All rights reserved. The codes documented in this report are preliminary and upon terminal makeup operator review may be revised to meet current compliance requirements. Taco Rose DO 05/30/2023 8:43:11 AM This report has been signed electronically. Number of Addenda: 0 Note Initiated On: 05/30/2023 7:44 AM
[2023-05-30] MEDS: Ezetimibe 10 MG Tablet PO (10:00)
[2023-05-30] MEDS: Metoprolol Tartrate 50 MG Tablet PO (10:00)
[2023-05-30] MEDS: amLODIPine 2.5 MG Tablet PO (10:00)
[2023-05-30] MEDS: Clopidogrel Bisulfate 75 MG Tablet PO (10:01)
[2023-05-30 10:16] LABS: Partial Thromboplast Time 85.7 Seconds (24.1-36.2)
--- NOTE | 2023-05-30 11:41 | DCINST_ITS ---
Discharge Instructions Diet Discharge Diet: 2000 mg Sodium Diet Activity Discharge Activity: Return to Normal Activity Weight Bearing Status: Weight bearing as tolerated Dressing / Incision Call your doctor if you observe: Fever of 101 or Higher, Coldness, Increased Pain, Numbness or Tingling, Change in Color, Inability to urinate, Inability to have a bowel movement, Shortness of breath, Dizziness, Fainting spells, Swelling in the ankles, Chest pain, Prolonged hiccupping, Increased palpitations (irregular heartbeat) and Calf discomfort Follow Up Care When: IN 2 WEEKS Test Results: Test results from this visit will be discussed in further detail at your follow- up appointment, if applicable. Discharge Plan Admission Admit Date/Time: 05/29/23 16:11 Primary Reason for Your Visit: GI bleed Attending Provider: Jaya Almanza Primary Care Provider: Jose Hooks [employer] Providers: Kusum Bishop; Lm Maxwell Discharge Orders/Prescriptions Prescriptions: Continued cholecalciferol (vitamin D3) 25 mcg (1,000 unit) capsule 25 mcg PO DAILY ezetimibe [Zetia] 10 mg tablet 10 mg PO DAILY Qty: 30 6RF Repatha SureClick 140 mg/mL pen injector 140 mg subcut Q2W Qty: 2 11RF (DME) blood pressure monitor Kit See Rx Instructions .Route Qty: 1 0RF Rx Instructions: As directed metoprolol tartrate 50 mg tablet 50 mg PO BID Qty: 60 11RF amlodipine 2.5 mg Tablet 2.5 mg PO DAILY Qty: 60 6RF clopidogrel 75 mg Tablet 75 mg PO DAILY Qty: 30 11RF clonazepam 0.5 mg Tablet 0.5 mg PO Q8H PRN (Reason: myoclonic jerks) Qty: 20 0RF levothyroxine 88 mcg tablet 88 mcg PO DAILY mirtazapine 7.5 mg tablet 7.5 mg PO QHS Changed pantoprazole 40 mg Tablet,Delayed Release (Dr/Ec) 40 mg PO BID 30 Days Qty: 60 2RF Rx Instructions: Twice daily for 2 months and then once daily. Held Eliquis 5 mg Tablet 5 mg PO BID Hold Instructions: Hold for 5 more days from 05/31/2023 Discontinued aspirin 81 mg Tablet,Chewable 81 mg PO DAILY Referrals / Follow Up: Jose Hooks Chi, MD [Primary Care Provider] - Lm Maxwell MD [Med Staff - Active Staff] - In 1 Week ( For IVC filter evaluation.) FriendTaco DO [Med Staff - Active Staff] - Within 1 Month Disposition Disposition (needs filled in before D/C Order can be placed): Home, Self Care
--- NOTE | 2023-05-30 12:25 | CASEMGMT ---
RN CM chart review: Patient was admitted 05/20-05/23/23 for Dysarthria, weakness. See SHENA CM assessment from 05/22/23. Patient was discharged to home with family support and referral to [facility]. Patient returned 05/29/23 for GI bleed and was admtted with GI consult. Patient and daughter state they have follow-up appt with PCP on 06/03/22. Patient was taking medications as perscribed and [facility] had been out to see patient on 05/29/23. Patient to discharge home with resumption of [facility] and follow-up plans in place. Patient and daughter denied further questions, concerns, or needs.
--- NOTE | 2023-05-30 14:20 | PCM.DC.SUM ---
Providers Date of Admission: 05/29/23 Date of Discharge: 05/30/23 Primary Care Physician: Dr. Jose Hooks MD Consultations 05/29/23 17:42 Consult: Gastroenterology Routine Consulting Provider: [facility] Reason for Consult: GI bleed, ABLA EMERGENT Consult: No Notified: Yes Date Notified: 05/29/23 Time Notified: 16:13 Method of Notification: Verbal 05/30/23 11:41 Consult: Vascular Surgery Routine Consulting Provider: Lm Maxwell Reason for Consult: ivc FILTER Evaluation EMERGENT Consult: No Notified: Yes Date Notified: 05/30/23 Time Notified: 11:41 Method of Notification: Verbal Reason For Visit: GI BLEED, ABLA Diagnosis Discharge Diagnosis (1) GI bleed: Status: Acute Code(s): K92.2 - Gastrointestinal hemorrhage, unspecified Qualifiers: GI bleed type/associated pathology: unspecified gastrointestinal hemorrhage type Qualified Code(s): K92.2 - Gastrointestinal hemorrhage, unspecified Plan The patient is an 82 y/o M is being admitted for darker stool, bleeding gums which is minor and transient. Denies chest pain or shortness of breath. Recently patient was discharged 1 week ago on Eliquis after diagnosis with pulmonary embolism. #1. Acute GI Bleed w/ resultant Acute Blood Loss Anemia most likely due to anticoagulation/Eliquis and Plavix: Patient is being admitted in PCP. Patient baseline hemoglobin is around 14.5 and is maintained on diet. On IV PPI. N.p.o. after midnight. GI is consulted. 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 - Small hiatal hernia. - No gross lesions in the second portion of the duodenum. - No specimens collected. Recommendation: - [facility]. - Resume previous diet. - Continue present medications. - Repeat EGD when patient can be off antiplatelets and anticoagulation for biopsies of Ogden's esophagus -Consider colonoscopy due to no evidence of acute GI bleed seen on his endoscopy #2. Recent BL Pulmonary Emboli with early cardiac strain concern: Hold Eliquis. On transient heparin drip until further GI evaluation. 05/30: Hold Eliquis for [address] Lm Maxwell and vascular surgery consult requested. Follow-up in the office within 1 week for possible IVC filter insertion. Continue Plavix. #3. Recent presentation for dysarthria and general weakness and myoclonus: As noted MRI of the brain with no acute findings, EEG negative, TSH and ammonia levels normal, U tox negative during last hospital workup. Patient was referred to tertiary facility for further workup of possible differential diagnosis of autoimmune workup and paraneoplastic process. LP could not be performed last time because of Plavix which needs to be continued for 12 months. #4. CAD: Most recent intervention 01/06/2023 with noted 90% proximal, 70% mid LAD, ARMSTRONG to LAD atretic, 80% anastomotic lesion, 100% mid LCx, SVG to OM 100%, OM2 filling retrogradely via collaterals from the R PLV, 1 9% proximal RCA, SVG to RPDA patent, [place] RPDA DA 60% distal, small 1.5 mm vessel, successful REKHA mid LAD, successful REKHA proximal LAD with aspirin indefinitely and noted intention for Plavix for at least 12 months. continue Plavix, not on statin therapy but will continue Zetia and noted to be on Repatha outpatient, continue metoprolol, not on JOAQUIM or/ARB. #5. Hypertension: Continue home regimen including metoprolol, amlodipine, PRN hydralazine. #6. Hyperlipidemia: Patient is on Zetia, not on statin therapy with myalgias reported with outpatient Repatha therapy noted. #7. Hypothyroidism: We will continue patient home levothyroxine regimen. #8. History of postoperative PAF: s/p prior RFA. Patient currently upon presentation recently initiated on Eliquis secondary to concurrent new diagnosis of multiple bilateral pulmonary emboli however presents with bleeding as noted, complicates presentation, continue home metoprolol therapy with hold parameters as needed. #9. GERD: maintain on PPI. #10. DVT prophylaxis: Given presentation as noted holding Eliquis but transition to heparin drip given recent bilateral PE with early strain concern pending GI evaluation with hold pending hemoglobin trending. #11. CODE status: Patient AGGIE is his daughter and living will is currently in place. Discussed CODE status at length including difference between FULL code, DNR-CCA and DNR-CC status. Following discussions about the differences in these status, requested Full Code status. Discharge medication reconciliation done. Discharge follow-up instructions completed. Discharge process discussed with the patient and all questions were answered to patient's satisfaction. Follow with PCP in 1 to 2 weeks Total time spent, exact 35 minutes on discharge meds reconciliation, examination, coordination of care with nurses and ancillary staff, review of imaging and blood test and discussion with the patient on follow-up instructions. Medications at Discharge Home Medications cholecalciferol (vitamin D3) 25 mcg (1,000 unit) capsule 25 mcg PO DAILY SUPPLEMENT 12/25/21 amlodipine 2.5 mg tablet 2.5 mg PO DAILY BLOOD PRESSURE #60 tabs 01/05/23 clopidogrel 75 mg tablet 75 mg PO DAILY BLOOD THINNER #30 tabs 01/05/23 blood pressure monitor #1 ea 01/15/23 evolocumab 140 mg/mL subcutaneous pen injector (Repatha SureClick) 140 mg subcut Q2W CHOLESTEROL #2 mL 01/15/23 ezetimibe 10 mg tablet (Zetia) 10 mg PO DAILY CHOLESTEROL #30 tabs 01/15/23 metoprolol tartrate 50 mg tablet 50 mg PO BID BLOOD PRESSURE #60 tabs 02/24/23 clonazepam 0.5 mg tablet 0.5 mg PO Q8H PRN myoclonic jerks #20 tabs 05/23/23 apixaban 5 mg tablet (Eliquis) 5 mg PO BID BLOOD THINNER 05/29/23 levothyroxine 88 mcg tablet 88 mcg PO DAILY THYROID 05/29/23 mirtazapine 7.5 mg tablet 7.5 mg PO QHS DEPRESSION 05/29/23 pantoprazole 40 mg tablet,delayed release 40 mg PO BID ACID REFUX 30 days #60 tabs 05/30/23 Physical Exam Narrative Seen and examined. Patient admitted with dark stool but no vomiting or upper GI bleed. Patient had EGD in the morning. Physical exam General: Alert, Oriented x3, Cooperative HEENT: Atraumatic, PERRLA, EOMI, Normocephalic Oral: No Gingival or Mucosal Lesions/ Ulcerations Neck: Supple, No JVD, Negative Carotid Bruits Lungs: Air entry diminished in bilateral lung bases. No crepitation/rhonchi Cardiovascular: Regular rate, Regular Rhythm, Normal S1, Normal S2, systolic murmur over right second ICS Abdomen: Bowel Sounds Present, Soft, Non Tender, Non-Distended : No renal angle tenderness. No suprapubic tenderness. Extremities: No edema, Capillary Refill Less than 3 Seconds Skin: No rashes, No breakdown Musculoskeletal: No Tenderness to Palpation of Joints or Extremities. No unilateral swelling or signs of DVT. Neurological: Cranial nerves II-XII grossly intact, DTR 2+/4. No acute focal neurological deficit. Psych/Mental Status: Normal Affect, Appropriate. Weight / BMI Weight Weight: 164 lb 10.965 oz Body Mass Index (BMI) 22.9 ABG / Lab / Microbiology Data 05/30/23 06:45 05/30/23 06:45 Laboratory: Laboratory Results - last 24 hr 05/29/23 14:40: WBC 7.3, RBC 4.32 L, Hgb 13.9, Hct 41.2, MCV 95.4 H, MCH 32.2 H, MCHC 33.7, RDW Std Deviation 43.1, RDW Coeff of Sukumar 12.4, Plt Count 370, MPV 9.0, Immature Gran % (Auto) 1.200 H, Neut % (Auto) 69.1, Lymph % (Auto) 13.6 L, [place] % (Auto) 9.2, Eos % (Auto) 6.3 H, Baso % (Auto) 0.6, Absolute Neuts (auto) 5.0, Absolute Lymphs (auto) 0.99, Nucleated RBC % 0, PT 17.0 H, INR 1.4, APTT 35.4, Sodium 144, Potassium 4.1, Chloride 113 H, Carbon Dioxide 28.0, Anion Gap 3 L, BUN 24 H, Creatinine 1.06, Estim Creat Clear Calc 57.39, Est GFR (MDRD) Af Amer 86, Est GFR (MDRD) Non-Af 71, BUN/Creatinine Ratio 22.6 H, Glucose 108 H, Calcium 8.5, Magnesium 2.1, Blood Type O POSITIVE, Antibody Screen NEGATIVE 05/29/23 18:50: Hgb 13.2, Hct 39.4 L 05/29/23 23:11: Hgb 13.8, Hct 41.8 05/30/23 01:15: Hgb 14.0, Hct 41.9, APTT 91.1 H* 05/30/23 06:45: WBC 7.5, RBC 4.24 L, Hgb 13.6, Hct 40.3, MCV 95.0 H, MCH 32.1 H, MCHC 33.7, RDW Std Deviation 42.5, RDW Coeff of Sukumar 12.3, Plt Count 339, MPV 8.9, Immature Gran % (Auto) 0.900, Neut % (Auto) 69.6, Lymph % (Auto) 15.0 L, [place] % (Auto) 9.0, Eos % (Auto) 5.0, Baso % (Auto) 0.5, Absolute Neuts (auto) 5.2, Absolute Lymphs (auto) 1.12, Nucleated RBC % 0, Sodium 144, Potassium 3.9, Chloride 115 H, Carbon Dioxide 26.0, Anion Gap 3 L, BUN 19 H, Creatinine 1.10, Estim Creat Clear Calc 56.59, Est GFR (MDRD) Af Amer 83, Est GFR (MDRD) Non-Af 68, BUN/Creatinine Ratio 17.3, Glucose 87, Calcium 8.5, Total Bilirubin 1.00, AST 10 L, ALT 19, Alkaline Phosphatase 67, Total Protein 5.6 L, Albumin 2.5 L, Globulin 3.1, Albumin/Globulin Ratio 0.8 L 05/30/23 09:57: APTT 85.7 H Microbiology: Microbiology 05/29/23 14:35 Stool Stool Occult Blood (CHRIS) - Final Occult Blood Positive D/C Instructions Discharge Diet: 2000 mg Sodium Diet Weight Bearing Status: Weight bearing as tolerated Call your doctor if you observe: Fever of 101 or Higher, Coldness, Increased Pain, Numbness or Tingling, Change in Color, Inability to urinate, Inability to have a bowel movement, Shortness of breath, Dizziness, Fainting spells, Swelling in the ankles, Chest pain, Prolonged hiccupping, Increased palpitations (irregular heartbeat) and Calf discomfort When: IN 2 WEEKS Meaningful Use Info Meaningful Use Diagnoses (Choose all that apply): None applicable Discharge Plan Admission Admit Date/Time: 05/29/23 16:11 Primary Reason for Your Visit: GI bleed Attending Provider: Jaya Almanza Primary Care Provider: Jose Hooks [employer] Providers: Kusum Bihsop; Lm Maxwell Discharge Orders/Prescriptions Prescriptions: Continued cholecalciferol (vitamin D3) 25 mcg (1,000 unit) capsule 25 mcg PO DAILY ezetimibe [Zetia] 10 mg tablet 10 mg PO DAILY Qty: 30 6RF Repatha SureClick 140 mg/mL pen injector 140 mg subcut Q2W Qty: 2 11RF (DME) blood pressure monitor Kit See Rx Instructions .Route Qty: 1 0RF Rx Instructions: As directed metoprolol tartrate 50 mg tablet 50 mg PO BID Qty: 60 11RF amlodipine 2.5 mg Tablet 2.5 mg PO DAILY Qty: 60 6RF clopidogrel 75 mg Tablet 75 mg PO DAILY Qty: 30 11RF clonazepam 0.5 mg Tablet 0.5 mg PO Q8H PRN (Reason: myoclonic jerks) Qty: 20 0RF levothyroxine 88 mcg tablet 88 mcg PO DAILY mirtazapine 7.5 mg tablet 7.5 mg PO QHS Changed pantoprazole 40 mg Tablet,Delayed Release (Dr/Ec) 40 mg PO BID 30 Days Qty: 60 2RF Rx Instructions: Twice daily for 2 months and then once daily. Held Eliquis 5 mg Tablet 5 mg PO BID Hold Instructions: Hold for 5 more days from 05/31/2023 Discontinued aspirin 81 mg Tablet,Chewable 81 mg PO DAILY Referrals / Follow Up: Lm Maxwell MD [Med Staff - Active Staff] - In 1 Week ( For IVC filter evaluation.) FriendTaco DO [Med Staff - Active Staff] - Within 1 Month Jose Hooks Chi, MD [Primary Care Provider] - Disposition Disposition (needs filled in before D/C Order can be placed): Home, Self Care Charges/Coding Addendum Addendum: Patient was admitted as inpatient but was discharged because of sooner recovery than expected at time of admission. Did not show significant drop in hemoglobin to require blood transfusion. Hemodynamically stable. Wants to go home. Visit Charges Inpatient E&M: 74190 Disch Hosp >30min
--- NOTE | 2023-05-30 16:28 | EX.PCM.CON.S ---
Assessment & Plan Assessment/Plan (1) Bilateral pulmonary embolism: PLAN: -recently diagnosed and started on oral anticoagulation -dark stools and anemia followed shortly after -given recent VTE would recommend IVC filter sooner than later -patient already discharged and getting homegoing instructions -risks/symptoms of recurrent PE discussed, instructed to return if new CP/SOB -will attempt to arrange filter for Thursday HPI Consult Data Date of Consult: 05/30/23 HPI Narrative HPI Narrative: KULWANT ANDRADE, is a 82 M who presents with dark stools and anemia after recently initiating eliquis for PE found 9 days ago. At that time he denied any acute symptoms consistent with PE, in fact had presented with stroke like symptoms. He currently denies any CP or SOB. This admission he underwent endoscopy which revealed no obvious bleeding source. He is also no plavix for recent cardiac stents. Does have history of DVT several years ago after open heart surgery; at that time he also did not tolerate Eliquis. [facility] Medical History (Updated 05/30/23 @ 08:[address] España Friend, DO) Acid reflux Atherosclerotic heart disease of [place] coronary artery without angina pectoris 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 Bigeminy BPH (benign prostatic hyperplasia) CAD (coronary artery disease) Cardiomyopathy in other diseases classified elsewhere Coronary artery disease D-dimer, elevated DDD (degenerative disc disease) Dyspnea on exertion Edema Essential hypertension Fibromyalgia GI bleed Hemorrhoid HTN (hypertension) Hyperlipidemia Hypothyroid Kidney stones Nasal sinus polyp Postoperative atrial fibrillation Premature atrial contractions Premature ventricular contraction Pulmonary embolism Pulmonary nodule Syncope TIA (transient ischemic attack) White coat syndrome with hypertension Home Medications cholecalciferol (vitamin D3) 25 mcg (1,000 unit) capsule 25 mcg PO DAILY SUPPLEMENT 12/25/21 [History Last Taken 05/29/23] amlodipine 2.5 mg tablet 2.5 mg PO DAILY BLOOD PRESSURE #60 tabs 01/05/23 [Rx Last Taken 05/29/23] clopidogrel 75 mg tablet 75 mg PO DAILY BLOOD THINNER #30 tabs 01/05/23 [Rx Last Taken 05/29/23] blood pressure monitor #1 ea 01/15/23 [Rx Last Taken Unknown] evolocumab 140 mg/mL subcutaneous pen injector (Repatha SureClick) 140 mg subcut Q2W CHOLESTEROL #2 mL 01/15/23 [Rx Last Taken 05/27/23] ezetimibe 10 mg tablet (Zetia) 10 mg PO DAILY CHOLESTEROL #30 tabs 01/15/23 [Rx Last Taken 05/29/23] metoprolol tartrate 50 mg tablet 50 mg PO BID BLOOD PRESSURE #60 tabs 02/24/23 [Rx Last Taken 05/29/23] clonazepam 0.5 mg tablet 0.5 mg PO Q8H PRN myoclonic jerks #20 tabs 05/23/23 [Rx Last Taken Unknown] apixaban 5 mg tablet (Eliquis) 5 mg PO BID BLOOD THINNER 05/29/23 [History Last Taken 05/29/23] levothyroxine 88 mcg tablet 88 mcg PO DAILY THYROID 05/29/23 [History Last Taken 05/29/23] mirtazapine 7.5 mg tablet 7.5 mg PO QHS DEPRESSION 05/29/23 [History Last Taken 05/28/23] pantoprazole 40 mg tablet,delayed release 40 mg PO BID ACID REFUX 30 days #60 tabs 05/30/23 [Rx Last Taken Unknown] Allergy/AdvReac Type Severity Reaction Status Date / Time erythromycin base Allergy Hives Verified 05/29/23 14:05 amoxicillin [From Augmentin] AdvReac Severe Itching Verified 05/29/23 14:05 atorvastatin AdvReac Severe myalgias Verified 05/29/23 14:05 clavulanic acid AdvReac Severe Itching Verified 05/29/23 14:05 [From Augmentin] fenofibrate [From Tricor] AdvReac Severe myalgias Verified 05/29/23 14:05 levofloxacin [From Levaquin] AdvReac Unknown Unknown Verified 05/29/23 14:05 Family History Father CVA (cerebral vascular accident) Hypertension Heart disease Mother CAD (coronary artery disease) Brother Hypertension Brother CAD (coronary artery disease) Hypertension Sister Hypertension Sister Patent foramen ovale Sister Hypertension Lung cancer Other Dyspnea on exertion Surgical History H/O hemorrhoidectomy History of back surgery History of cholecystectomy History of coronary artery bypass graft x 3 (~02/26/21) History of coronary artery stent placement History of kidney surgery History of placement of stent in LAD coronary artery (01/05/23) History of radiofrequency ablation procedure for cardiac arrhythmia (~10/2002) Hx of appendectomy Hx of CABG Social History household members: none Smoking Status: Never smoker alcohol intake: never substance use type: does not use ROS Constitutional Constitutional: Denies chills, fever(s), frequent falls, lethargy or weakness Eyes Eyes: Denies blind spots, change in vision or loss of vision ENT HEENT: Reports bleeding gums; Denies hoarseness or sore throat Cardiovascular Cardiovascular: Denies abdominal pain, bluish discoloration of hand/feet, chest pain with activity, claudication, cold extremities, cyanosis, dyspnea on exertion, erythema on extremities, irregular heart rhythm, leg edema, leg ulcers, numbness in extremities or weakness in extremities Respiratory/Chest Respiratory/Chest: Denies cough, excessive phlegm production, shortness of breath at rest, shortness of breath with exertion or wheezing Gastrointestinal Gastrointestinal: Reports melena; Denies anorexia, change in stool character, constipation, diarrhea or rectal bleeding Genitourinary Genitourinary: Denies dysuria or hematuria Musculoskeletal Musculoskeletal: Denies abnormal gait Integumentary Integumentary: Reports other Details: ; Denies erythema, non-healing lesions or wounds Neurologic Neurologic: Denies abnormal speech, focal weakness, headache(s), loss of vision, numbness, paresthesias or sensory deficit Hematologic/Lymphatic Hematologic/Lymphatic: Denies easy bleeding, easy bruising or lymphadenopathy Physical Exam Const alert, oriented x3, no apparent distress and healthy appearing General Appearance: cooperative; Negative for combative or lethargic Orientation / Consciousness: awake Exam Limitations: no limitations HEENT Head and Scalp: normocephalic and atraumatic Eyes EOMs intact bilaterally General Eye: normal appearance of both eyes Neck full ROM, no lymphadenopathy, thyroid normal and No no carotid bruits General: trachea midline; Negative for lymphadenopathy or tenderness Thyroid: thyroid normal Lymph Lymphatic: Negative for no lymphadenopathy noted Resp normal respiratory effort and no use of accessory muscles Effort and Inspection: Negative for labored, stridor or audible wheezes Cardio regular rate and regular rhythm Back/Spine Cervical Spine: cervical ROM normal Extremity full ROM, normal capillary refill and no clubbing, cyanosis or edema Skin no rashes or lesions noted and no wounds Neuro oriented x3, CN's II-XII intact bilaterally, no focal motor deficits and no sensory deficits noted Psych thought process normal, cooperative, affect normal, speech normal and activity/motor behavior normal Lab / Micro Data 05/30/23 06:45 05/30/23 06:45 Labs: Laboratory Results - last 24 hr 05/29/23 14:40: PT 17.0 H, INR 1.4, APTT 35.4, Magnesium 2.1 05/29/23 18:50: Hgb 13.2, Hct 39.4 L 05/29/23 23:11: Hgb 13.8, Hct 41.8 05/30/23 01:15: Hgb 14.0, Hct 41.9, APTT 91.1 H* 05/30/23 06:45: WBC 7.5, RBC 4.24 L, Hgb 13.6, Hct 40.3, MCV 95.0 H, MCH 32.1 H, MCHC 33.7, RDW Std Deviation 42.5, RDW Coeff of Sukumar 12.3, Plt Count 339, MPV 8.9, Immature Gran % (Auto) 0.900, Neut % (Auto) 69.6, Lymph % (Auto) 15.0 L, [place] % (Auto) 9.0, Eos % (Auto) 5.0, Baso % (Auto) 0.5, Absolute Neuts (auto) 5.2, Absolute Lymphs (auto) 1.12, Nucleated RBC % 0, Sodium 144, Potassium 3.9, Chloride 115 H, Carbon Dioxide 26.0, Anion Gap 3 L, BUN 19 H, Creatinine 1.10, Estim Creat Clear Calc 56.59, Est GFR (MDRD) Af Amer 83, Est GFR (MDRD) Non-Af 68, BUN/Creatinine Ratio 17.3, Glucose 87, Calcium 8.5, Total Bilirubin 1.00, AST 10 L, ALT 19, Alkaline Phosphatase 67, Total Protein 5.6 L, Albumin 2.5 L, Globulin 3.1, Albumin/Globulin Ratio 0.8 L 05/30/23 09:57: APTT 85.7 H Micro: Microbiology 05/29/23 14:35 Stool Stool Occult Blood (CHRIS) - Final Occult Blood Positive Charges/Coding Visit Charges Inpatient E&M: 74728 Init Hosp L3
== END 2023-05-30 16:27 | disposition home health service (06) ==
LOC: ED 14:52 → PCU 16:56
PROVIDERS: Internal Medicine Gastroenterology; Admitting Provider Family Medicine; Emergency Provider Emergency Medicine; PCP Family Medicine Geriatric Medicine; Referring Provider Emergency Medicine; Visit Provider Internal Medicine
PROC: 0DJD8ZZ Inspection of Lower Intestinal Tract, Via Natural or Artificial Opening Endoscopic (ICD-10-PCS; CPT 45378; principal; 2023-05-30 08:00)
DX: K92.2 Gastrointestinal hemorrhage, unspecified (principal); I26.99 Other pulmonary embolism without acute cor pulmonale; I48.0 Paroxysmal atrial fibrillation; K44.9 Diaphragmatic hernia without obstruction or gangrene; Z79.82 Long term (current) use of aspirin; E78.5 Hyperlipidemia, unspecified; Z79.02 Long term (current) use of antithrombotics/antiplatelets; M79.7 Fibromyalgia; I25.10 Atherosclerotic heart disease of native coronary artery without angina pectoris; I10 Essential (primary) hypertension; D62 Acute posthemorrhagic anemia; Z79.01 Long term (current) use of anticoagulants; E03.9 Hypothyroidism, unspecified; Z79.899 Other long term (current) drug therapy; Z79.890 Hormone replacement therapy; K21.9 Gastro-esophageal reflux disease without esophagitis; Z23 Encounter for immunization
CPT/HCPCS: 43235; 36415; 80048; 80053; 82274; 83735; 85014; 85018; 85025; 85610; 85730; 86850; 86900; 86901; 94668; 96365; 96366; 96375; 96376; 97161; 97166; 99252; 99284; G0009; J7030; A4216; G0463; J3490

== ENCOUNTER 2023-06-03 08:38 | Day surgery (SDC) | payer MEDICARE, SELFPAY ==
[2023-04-13 08:14] VITALS: BMI 24.3
[2023-06-02 11:31] VITALS: BMI 22.9
--- NOTE | 2023-06-03 14:21 | OP.PCM_ITS ---
Report of Operation Date of Procedure: 06/03/23 Pre-Operative Diagnosis: recent pulmonary embolism with contraindication to ant icoagulation Post-Operative Diagnosis: same Surgery/Procedure Performed:: insertion inferior vena cava filter Surgeon: Lm Maxwell Type of Anesthesia: Local and Sedation,Conscious Estimated Blood Loss (mL): 1 Description of Procedure: HPI: Patient is an 82-year-old male with recent pulmonary embolism which was unprovoked in nature. He was started on anticoagulation and shortly after developed dark stools which prompted admission to the hospital. As of yet he has not found the etiology of his change in stool character and his anticoagulation was stopped. He is taken now for inferior vena cava filter given his contraindication anticoagulation and recent VTE. Description of procedure: Upon obtaining form consent and verification correct patient procedure site patient taken to the Airconditioning Engineer was positioned prepped and draped in usual fashion. Time was performed conscious sedation administered Versed and fentanyl. Skin overlying the right common femoral vein was anesthetized 1% lidocaine the vessel accessed under ultrasound guidance with a micropuncture needle wire. There is then exchanged out for micropuncture sheath routine injection ilio caval venogram was performed revealed satisfactory placement no extravasation or dissection, normal caliber patent iliac vein and IVC. Through the micropuncture sheath Acceptdson wire advanced the micropuncture sheath exchanged for the Cook filter delivery system. This was then advanced in position at the L2 vertebral body and digital traction venacavogram was performed. This revealed normal caliber vena cava with no thrombus. This also revealed the confluence of the renal veins with the left being the lowest. The lowest renal vein was then marked on the screen and the delivery catheter position inferior to the confluence. A Cook Elmo t[place]ip inferior vena cava filter was then advanced in position deployed. Completion venacavogram revealed satisfactory positioning with some tilt blood positioning below the renal vein. The sheath was then withdrawn manage pressure held for 5 minutes after satisfactory stasis was noted. Dry sterile dressing was then applied patient was taken recovery for bedrest prior to discharge to home
== END 2023-06-03 13:30 | disposition home or self-care (01) ==
LOC: CLSP 08:40
PROVIDERS: PCP Family Medicine Geriatric Medicine; Referring Provider Surgery Trauma Surgery; Visit Provider Surgery Trauma Surgery
DX: I26.99 Other pulmonary embolism without acute cor pulmonale (principal); Z79.01 Long term (current) use of anticoagulants; Z82.49 Family history of ischemic heart disease and other diseases of the circulatory system; Z86.73 Personal history of transient ischemic attack (TIA), and cerebral infarction without residual deficits; E03.9 Hypothyroidism, unspecified; E78.5 Hyperlipidemia, unspecified; I10 Essential (primary) hypertension; I25.10 Atherosclerotic heart disease of native coronary artery without angina pectoris; Z86.718 Personal history of other venous thrombosis and embolism; K21.9 Gastro-esophageal reflux disease without esophagitis
CPT/HCPCS: 37191; 76937; 99152; C1880; C1894; J7040; Q9967; C1769

== ENCOUNTER → 2023-06-08 | Outpatient (CLI) | payer MEDICARE, SELFPAY ==
[2023-04-13 08:14] VITALS: BMI 24.3
[2023-06-08 12:48] LABS: Absolute Lymphocyte Count 1.01 X10^3/uL (0.83-4.51); Absolute Neutrophil Count 5.6 X10^3/uL (2.0-7.7); Basophil# 0.06 X10^3/uL; Basophil% 0.8 % (0-1); Eosinophil# 0.47 X10^3/uL; Eosinophils% 5.9 % (0-5); Hematocrit 43.9 % (40-54); Hemoglobin 14.5 g/dL (13.0-16.5); Lymphocyte # 1.01 X10^3/ul (0.83-4.51); Lymphocyte % 12.7 % (19-41); Mean Corpuscular Volume 96.9 fL (80-94); Mean Platelet Vol. 9.4 fl (6.2-12.0); Monocyte# 0.79 X10^3/uL; Monocyte% 9.9 % (0-10); NRBC Flagged by Analyzer 0 % (0-5); Neutrophil # 5.57 X10^3/uL (2.7-7.7); Neutrophil % 70.1 % (47-70); Platelet Count 365 K/mm3 (150-450); RBC Distribution Width CV 12.6 % (11.6-14.6); RBC Distribution Width SD 44.6 fl (35.1-43.9); Red Blood Count 4.53 M/mm3 (4.6-6.2)
== END | disposition home or self-care (01) ==
LOC: POLAB3 11:49
PROVIDERS: PCP Family Medicine Geriatric Medicine; Visit Provider Family Medicine Geriatric Medicine
DX: R53.83 Other fatigue (principal)
CPT/HCPCS: 36415; 85025

== ENCOUNTER → 2023-06-24 | Outpatient (CLI) | payer MEDICARE, SELFPAY ==
[2023-04-13 08:14] VITALS: BMI 24.3
[2023-06-24 11:22] LABS: Absolute Lymphocyte Count 1.02 X10^3/uL (0.83-4.51); Absolute Neutrophil Count 5.1 X10^3/uL (2.0-7.7); Basophil# 0.07 X10^3/uL; Eosinophil# 0.39 X10^3/uL; Eosinophils% 5.4 % (0-5); Hematocrit 46.6 % (40-54); Hemoglobin 14.8 g/dL (13.0-16.5); Lymphocyte # 1.02 X10^3/ul (0.83-4.51); Lymphocyte % 14.1 % (19-41); Mean Corp Hgb Conc 31.8 g/dL (32-36); Mean Corpuscular Hgb 31.1 pg (27.0-32.0); Mean Corpuscular Volume 97.9 fL (80-94); Mean Platelet Vol. 9.8 fl (6.2-12.0); Monocyte# 0.63 X10^3/uL; Monocyte% 8.7 % (0-10); NRBC Flagged by Analyzer 0 % (0-5); Neutrophil # 5.06 X10^3/uL (2.7-7.7); Neutrophil % 70.2 % (47-70); Platelet Count 323 K/mm3 (150-450); RBC Distribution Width CV 12.4 % (11.6-14.6); RBC Distribution Width SD 44.8 fl (35.1-43.9); Red Blood Count 4.76 M/mm3 (4.6-6.2); White Blood Count 7.2 K/mm3 (4.4-11.0)
[2023-06-24 11:47] LABS: Vitamin D,25 Hydroxy 86.7 ng/mL
[2023-06-24 12:17] LABS: AST(SGOT) 13 U/L (15-37); Alanine Aminotransfer ALT/SGPT 15 U/L (16-61); Albumin, Serum 3.1 g/dL (3.2-5.0); Alkaline Phosphatase 72 U/L (45-117); Anion Gap 4 (5-15); BUN 17 mg/dL (7-18); BUN/Creat Ratio 11.5 RATIO (10-20); Chloride 109 mmol/L (98-107); Creatinine, Serum 1.48 mg/dL (0.70-1.30); EST Glomerular Filtration Rate 49 mL/min (>60); Est Glom Filt Rate - Afr Amer 59 mL/min (>60); Globulin 3.2 g/dL (2.2-4.2); Glucose 96 mg/dL (74-106); Potassium 4.1 mmol/L (3.5-5.1); Protein, Total 6.3 g/dL (6.4-8.2); Sodium Level 141 mmol/L (136-145); Thyroid Stim Hormone (TSH) 0.59 uIU/mL (0.358-3.74)
== END | disposition home or self-care (01) ==
LOC: POLAB3 09:32
PROVIDERS: PCP Family Medicine Geriatric Medicine; Visit Provider Family Medicine Geriatric Medicine
DX: I10 Essential (primary) hypertension (principal); E55.9 Vitamin D deficiency, unspecified
CPT/HCPCS: 36415; 80053; 82306; 84443; 85025

== ENCOUNTER → 2023-08-18 | Outpatient (CLI) | payer MEDICARE, SELFPAY ==
[2023-04-13 08:14] VITALS: BMI 24.3
--- NOTE | 2023-08-18 10:50 | VDLE_ITS ---
Reason For Study: Bilateral leg pain RIGHT LEFT GSV is normal. GSV is normal. CFV is compressible, spontaneous, phasic, CFV is compressible, spontaneous, phasic, competent and demonstrates normal competent, and demonstrates normal augmentation. augmentation. FV is compressible, spontaneous, phasic, FV is compressible, spontaneous, phasic, competent and demonstrates normal competent and demonstrates normal augmentation. augmentation. POP V is compressible, spontaneous, phasic, POP V is compressible, spontaneous, phasic, competent and demonstrates normal competent and demonstrates normal augmentation. augmentation. T/P Trunk is compressible. T/P Trunk is compressible. PTV is compressible. PTV is compressible. RT PerV is compressible. LT PerV is compressible. Procedure Acute deep vein thrombosis is noted in the This is a venous duplex using B-mode, color Soleus V. It is dilated and NONCOMPRESSIBLE. flow and spectral Doppler. Exam performed in department. A preliminary report was called and/or faxed to [facility]. VL/Venous Duplex US - Nikita Extrem Interpretation Summary Acute deep vein thrombosis is noted in the left soleus vein. Deep veins of the right lower extremity are patent and compressible segmentally . There is no evidence of right lower extremity deep vein thrombosis. The bilateral great sap henous veins appear patent and compressible segmentally. Ordering Physician: Lm Maxwell Referring Physician: Jose Hooks Chi Performed By: Oneida Mcallister RVT
== END | disposition home or self-care (01) ==
LOC: CVS 10:49
PROVIDERS: PCP Family Medicine Geriatric Medicine; Referring Provider Surgery Trauma Surgery; Visit Provider Surgery Trauma Surgery
DX: I82.462 Acute embolism and thrombosis of left calf muscular vein (principal); I26.99 Other pulmonary embolism without acute cor pulmonale; Z95.828 Presence of other vascular implants and grafts
CPT/HCPCS: 93970

== ENCOUNTER → 2023-09-08 | Outpatient (CLI) | payer MEDICARE, SELFPAY ==
[2021-09-04 10:29] VITALS: BMI 24.4
[2023-04-13 08:14] VITALS: BMI 24.3
[2023-09-08 09:30] LABS: Color, Urine Yellow (Yellow); Glucose, Dipstick Normal (Normal); Ketone-Dipstick Negative (Negative); Leukocyte Esterase-Dipstick Negative /ul (Negative); Nitrite-Dipstick Negative (Negative); Occult Blood-Urine 10 /ul (Negative); Protein-Dipstick Negative (Negative); Specific Gravity, Urine 1.025 (1.002-1.030); Urine Clarity Clear (Clear); Urine Urobilinogen Normal (Normal)
[2023-09-08 09:33] LABS: Urine Bilirubin Dipstick 1 mg/dL (Negative)
[2023-09-08 14:34] LABS: Albumin, Serum 3.3 g/dL (3.2-5.0); BUN 22 mg/dL (7-18); BUN/Creat Ratio 15.8 RATIO (10-20); Calcium,Total 8.8 mg/dL (8.5-10.1); Chloride 113 mmol/L (98-107); Creatinine, Serum 1.39 mg/dL (0.70-1.30); EST Glomerular Filtration Rate 52 mL/min (>60); Est Glom Filt Rate - Afr Amer 63 mL/min (>60); Glucose 99 mg/dL (74-106); Phosphorus 3.3 mg/dL (2.5-4.9); Sodium Level 142 mmol/L (136-145)
[2023-09-08 14:46] LABS: AST(SGOT) 13 U/L (15-37); Alanine Aminotransfer ALT/SGPT 19 U/L (16-61); Albumin, Serum 3.4 g/dL (3.2-5.0); Alkaline Phosphatase 66 U/L (45-117); Bilirubin, Direct 0.25 mg/dL (0.00-0.30); Cholesterol 126 mg/dL (200); Globulin 3.3 g/dL (2.2-4.2); High Density Lipoprotein 36 mg/dL; Protein, Total 6.7 g/dL (6.4-8.2); Triglycerides 283 mg/dL; Very Low Density Lipoprotein 57 mg/dL (5-40)
== END | disposition home or self-care (01) ==
LOC: LAB 08:59
PROVIDERS: Nurse Practitioner Gerontology; PCP Family Medicine Geriatric Medicine; Referring Provider Internal Medicine Nephrology; Visit Provider Internal Medicine Nephrology
DX: N18.32 Chronic kidney disease, stage 3b (principal)
CPT/HCPCS: 36415; 80061; 80069; 80076; 81002

== ENCOUNTER → 2023-09-09 | Outpatient (CLI) | payer MEDICARE, SELFPAY ==
[2023-04-13 08:14] VITALS: BMI 24.3
[2023-09-09 12:09] LABS: Erythrocyte Sedimentation Rate 6 mm/hr (0-20)
[2023-09-09 12:25] LABS: CPK Total, Creatine Kinase 63 U/L (39-308); CRP 7.07 mg/L (0.0-3.0)
== END | disposition home or self-care (01) ==
LOC: POLAB3 10:56
PROVIDERS: PCP Family Medicine Geriatric Medicine; Visit Provider Family Medicine Geriatric Medicine
DX: G72.0 Drug-induced myopathy (principal)
CPT/HCPCS: 36415; 82550; 85652; 86140

== ENCOUNTER 2023-09-30 09:37 | Inpatient (IN) | payer MEDICARE, SELFPAY ==
[2023-04-13 08:14] VITALS: BMI 24.3
[2023-09-30] VITALS (9 sets, daily range): BP systolic 80–150; BP diastolic 48–99; PULSE 51–108; RESP 14–18; TEMP 36.6–37.4; O2SAT 92–98; BMI 23.7; BMI 23.1
--- NOTE | 2023-09-30 09:58 | CT_ITS ---
STUDY: CT ABDOMEN AND PELVIS WITH AND WITHOUT CONTRAST REASON FOR EXAM: Male, 83 years old. Hematuria. Passing blood clots. Groin pain. RADIATION DOSAGE (If Supplied By Facility): CTDIvol = ( 18.45 ) mGy, DLP = ( 2330.30 ) mGycm TECHNIQUE: Transaxial images were obtained from the dome of the diaphragm to the symphysis pubis without oral contrast. ISOVUE 370-68ml was administered. Sagittal and coronal images were reconstructed. Individualized dose optimization techniques were used for this CT. COMPARISON: Comparison is made with prior study dated April 28, 2018. FINDINGS: Mild linear scarring at the lung bases. Coronary artery calcification. There is decreased attenuation of the liver consistent with steatosis. The patient is status post cholecystectomy. Normal spleen. Normal pancreas. Normal bilateral adrenal glands. 1 cm cyst in the lower pole of the right kidney. There is a 5.8 cm x 4.5 cm cyst in the upper medial pole of the left kidney. There is a 2.6 cm x 2.2 sonolucent cyst in the midportion of the left kidney as well as a 1.2 cm cyst in the lower pole of the left kidney. Normal visualized stomach. Normal small intestine. Normal colon. There is non-visualization of the appendix. Patient has a history of prior appendectomy. There is diffuse atherosclerotic calcification of the abdominal aorta and its major visceral branches, without a demonstrated aneurysm. There is an IVC filter in place. Normal retroperitoneum. Diffuse bladder wall thickening. The bladder is not completely distended. There is a 1.5 cm x 1.4 cm polypoid lesion in the posterior aspect of the base of the urinary bladder. Heterogeneous enlargement of the prostate. The prostate measures 3.7 cm x 5 cm. Normal abdominal wall. Prior antibiotic or sclerotic fixation at the L3-L4 and L4-L5 levels. Minimal anterior listhesis of L3 on L4. CT/CT Abd/Pelvis W/WO Contrast IMPRESSION: Diffuse bladder wall thickening with polypoid lesion at the base of the bladder. Heterogeneous enlargement of the prostate with indentation at the bladder base. Bilateral renal cysts more prominent on the left side. Electronically Signed: Charanjit Smith MD at 11:30 EDT ,
--- NOTE | 2023-09-30 10:05 | EX.ED.DYSGE1 ---
HPI History of Present Illness Chief Complaint: Complaint Informant: patient Narrative Narrative: 83-year-old male presenting with hematuria. Patient has had gross hematuria as well as clots. He states this started today. He is on aspirin, Plavix, no additional anticoagulants. He complains of diffuse joint pain which has been chronic. Denies abdominal or back pain. Denies fever. Denies chest pain or shortness of breath. Denies syncope. 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 Bigeminy BPH (benign prostatic hyperplasia) CAD (coronary artery disease) Cardiomyopathy in other diseases classified elsewhere Coronary artery disease D-dimer, elevated DDD (degenerative disc disease) Dyspnea on exertion Edema Essential hypertension Fibromyalgia GI bleed Hemorrhoid HTN (hypertension) Hyperlipidemia Hypothyroid Kidney stones Nasal sinus polyp Postoperative atrial fibrillation Premature atrial contractions Premature ventricular contraction Pulmonary embolism Pulmonary nodule Syncope TIA (transient ischemic attack) White coat syndrome with hypertension Home Medications cholecalciferol (vitamin D3) 25 mcg (1,000 unit) capsule 25 mcg PO DAILY SUPPLEMENT 12/25/21 [History Last Taken 09/30/23] amlodipine 2.5 mg tablet 2.5 mg PO DAILY BLOOD PRESSURE #60 tabs 01/05/23 [Rx Last Taken 09/30/23] clopidogrel 75 mg tablet 75 mg PO DAILY BLOOD THINNER #30 tabs 01/05/23 [Rx Last Taken 09/30/23] blood pressure monitor #1 ea 01/15/23 [Rx Last Taken Unknown] metoprolol tartrate 50 mg tablet 50 mg PO BID BLOOD PRESSURE #60 tabs 02/24/23 [Rx Last Taken 09/30/23] levothyroxine 88 mcg tablet 88 mcg PO DAILY THYROID 05/29/23 [History Last Taken 09/30/23] acetaminophen 500 mg tablet (Tylenol Extra Strength) 1,000 mg PO Q6H PRN fever or pain 09/30/23 [History Last Taken 09/30/23] aspirin 81 mg tablet,delayed release (Adult Aspirin Regimen) 81 mg PO DAILY 09/30/23 [History Last Taken 09/30/23] cephalexin 500 mg capsule 500 mg PO BID #14 caps 09/30/23 [Rx Last Taken Unknown] diphenhydramine 25 mg-acetaminophen 500 mg tablet (Tylenol PM Extra Strength) 2 tab PO QHS 09/30/23 [History Last Taken 09/29/23] pantoprazole 40 mg tablet,delayed release 40 mg PO DAILY ACID REFUX 09/30/23 [History Last Taken 09/30/23] prednisone 5 mg tablet 5 mg PO DAILY 09/30/23 [History Last Taken 09/30/23] Allergy/AdvReac Type Severity Reaction Status Date / Time erythromycin base Allergy Hives Verified 09/30/23 09:39 amoxicillin [From Augmentin] AdvReac Severe Itching Verified 09/30/23 09:39 atorvastatin AdvReac Severe myalgias Verified 09/30/23 09:39 clavulanic acid AdvReac Severe Itching Verified 09/30/23 09:39 [From Augmentin] fenofibrate [From Tricor] AdvReac Severe myalgias Verified 09/30/23 09:39 levofloxacin [From Levaquin] AdvReac Unknown Unknown Verified 09/30/23 09:39 Family History Father CVA (cerebral vascular accident) Hypertension Heart disease Mother CAD (coronary artery disease) Brother Hypertension Brother CAD (coronary artery disease) Hypertension Sister Hypertension Sister Patent foramen ovale Sister Hypertension Lung cancer Other Dyspnea on exertion Surgical History H/O hemorrhoidectomy History of back surgery History of cholecystectomy History of coronary artery bypass graft x 3 (~02/26/21) History of coronary artery stent placement History of kidney surgery History of placement of stent in LAD coronary artery (01/05/23) History of radiofrequency ablation procedure for cardiac arrhythmia (~10/2002) Hx of appendectomy Hx of CABG Social History household members: none Smoking Status: Never smoker alcohol intake: never substance use type: does not use ROS ROS ED Constitutional Constitutional ED: Denies fever(s) Eyes Eyes: Denies change in vision ENT ENT ED: Denies rhinorrhea or sore throat Cardiovascular Cardiovascular: Denies chest pain or palpitations Respiratory/Chest Respiratory/Chest: Denies cough or dyspnea Gastrointestinal Gastrointestinal: Denies abdominal pain, diarrhea, nausea or vomiting Genitourinary Genitourinary ED: Reports hematuria; Denies dysuria Musculoskeletal Musculoskeletal: Reports arthralgias Integumentary Denies rash Neurologic Neurologic: Denies headache(s) Psychiatric Psychiatric: Denies suicidal thoughts EXAM Physical Exam Const Vital Signs: 09/30/23 09:37 09/30/23 11:37 09/30/23 13:00 Temperature 97.8 F Temperature Source Temporal Pulse Rate 59 L 51 L 57 L Respiratory Rate 16 16 14 Blood Pressure 119/75 135/98 H 150/82 H Blood Pressure Mean 89 110 104 Pulse Ox 98 93 95 Oxygen Delivery Method Room Air Room Air Room Air 09/30/23 15:00 Temperature Temperature Source Pulse Rate 57 L Respiratory Rate 16 Blood Pressure 148/87 H Blood Pressure Mean 107 Pulse Ox 97 Oxygen Delivery Method Room Air Positive well nourished and well developed General Appearance ED: well developed HEENT Reports normocephalic and head/scalp atraumatic Eyes PERRL and EOMs intact bilaterally Neck supple General: Negative for tenderness Chest Wall inspection of chest normal Resp normal respiratory effort and clear to auscultation bilaterally Cardio regular rate and regular rhythm GI non-tender and non-distended Palpation: soft; Negative for guarding or rebound tenderness present no CVA tenderness Extremity normal to inspection Neuro oriented x3 Sensorium / Orientation: alert Psych mental status grossly normal MDM MDM MDM Narrative Medical decision making narrative: Andrews catheter will be placed and bladder will be irrigated. Andrews catheter was placed. Urine cleared quickly. Patient is unable to tolerate Andrews catheter in place. It is removed. CBC shows white count 12.9, hemoglobin 13.9. BUN 26, creatinine 1.36. This is at his baseline. Urinalysis shows positive nitrite, over 100 red blood cells, over 100 white blood cells. Patient was given Rocephin. Urine culture was sent. He is able to urinate in the ED without difficulty. CT abdomen pelvis shows diffuse bladder wall thickening with polypoid lesion at the base of the bladder. Heterogeneous enlargement of the prostate with indentation at the bladder base. Bilateral renal cysts more prominent on the left side. Patient is feeling improved in the emergency room. He is comfortable with discharge home. He will need urology follow-up. He was given Dr. Perdomo for follow-up. Given prescription for Keflex. Advised signs and symptoms for which to return to the ED. History & Record Review Additional record(s) reviewed:: Prior labs Lab Data Attestation: I reviewed the patient's lab results. Labs: Laboratory Results - last 24 hr 09/30/23 10:05 WBC 12.9 H RBC 4.49 L Hgb 13.9 Hct 42.6 MCV 94.9 H MCH 31.0 MCHC 32.6 RDW Std Deviation 45.2 H RDW Coeff of Sukumar 12.8 Plt Count 255 MPV 9.6 Immature Gran % (Auto) 0.300 Neut % (Auto) 82.8 H Lymph % (Auto) 6.9 L [place] % (Auto) 9.4 Eos % (Auto) 0.3 Baso % (Auto) 0.3 Absolute Neuts (auto) 10.7 H Absolute Lymphs (auto) 0.89 Nucleated RBC % 0 Sodium 141 Potassium 3.9 Chloride 113 H Carbon Dioxide 23.0 Anion Gap 5 BUN 26 H Creatinine 1.36 H Estim Creat Clear Calc 45.37 Est GFR (MDRD) Af Amer 65 Est GFR (MDRD) Non-Af 53 L BUN/Creatinine Ratio 19.1 Glucose 111 H Calcium 8.6 Urine Color [place] Urine Clarity Cloudy Urine pH 6.5 Ur Specific Butler 1.015 Urine Protein 500 H Urine Glucose (UA) Normal Urine Ketones 5 H Urine Occult Blood 250 H Urine Nitrite Positive H Urine Bilirubin 1 H Urine Urobilinogen 1 H Ur Leukocyte Esterase 500 H Urine RBC > 100 SEEN Urine WBC >100 SEEN Ur Squamous Epith Cells 0 SEEN Urine Bacteria 0 SEEN Urine Mucus 0 SEEN Radiography Diagnostic Testing: Clinical Impression(s) from Imaging Studies Abdomen/Pelvis CT 09/30/23 09:58 IMPRESSION: Diffuse bladder wall thickening with polypoid lesion at the base of the bladder. Heterogeneous enlargement of the prostate with indentation at the bladder base. Bilateral renal cysts more prominent on the left side. Electronically Signed: Charanjit Smith MD at 11:30 EDT , Discharge Plan Triage Chief Complaint: Complaint ED Provider: Barbara Mathew Dx/Rx/DC Orders Clinical Impression: Hematuria Instructions: ED Hematuria Prescriptions: New cephalexin 500 mg capsule 500 mg PO BID Qty: 14 0RF No Action cholecalciferol (vitamin D3) 25 mcg (1,000 unit) capsule 25 mcg PO DAILY (DME) blood pressure monitor Kit See Rx Instructions .Route Qty: 1 0RF Rx Instructions: As directed metoprolol tartrate 50 mg tablet 50 mg PO BID Qty: 60 11RF amlodipine 2.5 mg Tablet 2.5 mg PO DAILY Qty: 60 6RF clopidogrel 75 mg Tablet 75 mg PO DAILY Qty: 30 11RF levothyroxine 88 mcg tablet 88 mcg PO DAILY prednisone 5 mg tablet 5 mg PO DAILY aspirin [Adult Aspirin Regimen] 81 mg tablet,delayed release (DR/EC) 81 mg PO DAILY Tylenol PM Extra Strength 25-500 mg tablet 2 tab PO QHS acetaminophen [Tylenol Extra Strength] 500 mg tablet 1,000 mg PO Q6H PRN (Reason: fever or pain) pantoprazole 40 mg Tablet,Delayed Release (Dr/Ec) 40 mg PO DAILY Rx Instructions: Twice daily for 2 months and then once daily. Primary Care Provider: Jose Hooks Chi Referrals: Jese Perdomo MD [Med Staff - Active Staff] - Jose Hooks Chi, MD [Primary Care Provider] - Disposition Disposition: Home, Self Care
[2023-09-30 10:13] LABS: Bacteria 0 SEEN /hpf (None Seen); Mucous, Urine 0 SEEN /hpf (<or=2+); Squamous Epithelial Cells - UA 0 SEEN /hpf (0-5)
[2023-09-30 10:18] LABS: Color, Urine Amber (Yellow); Glucose, Dipstick Normal (Normal); Ketone-Dipstick 5 mg/dl (Negative); Leukocyte Esterase-Dipstick 500 /ul (Negative); Nitrite-Dipstick Positive (Negative); Occult Blood-Urine 250 /ul (Negative); Protein-Dipstick 500 mg/dl (Negative); Specific Gravity, Urine 1.015 (1.002-1.030); Urine Bilirubin Dipstick 1 mg/dL (Negative); Urine Clarity Cloudy (Clear); Urine Urobilinogen 1 mg/dl (Normal); Urine pH 6.5 (5.0 - 8.0)
[2023-09-30 10:19] LABS: Absolute Lymphocyte Count 0.89 X10^3/uL (0.83-4.51); Absolute Neutrophil Count 10.7 X10^3/uL (2.0-7.7); Basophil# 0.04 X10^3/uL; Basophil% 0.3 % (0-1); Eosinophil# 0.04 X10^3/uL; Eosinophils% 0.3 % (0-5); Hematocrit 42.6 % (40-54); Hemoglobin 13.9 g/dL (13.0-16.5); Lymphocyte # 0.89 X10^3/ul (0.83-4.51); Lymphocyte % 6.9 % (19-41); Mean Corp Hgb Conc 32.6 g/dL (32-36); Mean Corpuscular Volume 94.9 fL (80-94); Mean Platelet Vol. 9.6 fl (6.2-12.0); Monocyte# 1.22 X10^3/uL; Monocyte% 9.4 % (0-10); NRBC Flagged by Analyzer 0 % (0-5); Neutrophil % 82.8 % (47-70); Platelet Count 255 K/mm3 (150-450); RBC Distribution Width CV 12.8 % (11.6-14.6); RBC Distribution Width SD 45.2 fl (35.1-43.9); Red Blood Count 4.49 M/mm3 (4.6-6.2); White Blood Count 12.9 K/mm3 (4.4-11.0)
[2023-09-30 10:23] LABS: Red Blood Cells-Urine > 100 SEEN /hpf (0-5); White Blood Cells >100 SEEN /hpf (0-5)
[2023-09-30 10:29] LABS: Anion Gap 5 (5-15); BUN 26 mg/dL (7-18); BUN/Creat Ratio 19.1 RATIO (10-20); Calcium,Total 8.6 mg/dL (8.5-10.1); Chloride 113 mmol/L (98-107); Creatinine, Serum 1.36 mg/dL (0.70-1.30); EST Glomerular Filtration Rate 53 mL/min (>60); Est Glom Filt Rate - Afr Amer 65 mL/min (>60); Estimated Creatinine Clearance 45.37 ml/min; Glucose 111 mg/dL (74-106); Potassium 3.9 mmol/L (3.5-5.1); Sodium Level 141 mmol/L (136-145)
[2023-09-30] MEDS: Morphine 4 MG/ML Syringe IV (12:00)
[2023-09-30] MEDS: Ondansetron 4 MG/2 ML Vial IV (12:00)
[2023-09-30] MEDS: Ceftriaxone 1 GM/50 ML BAG IV (15:46)
--- NOTE | 2023-09-30 15:56 | HP.PCM.HOS_ITS ---
[facility] - General General Date of Admission: 09/30/23 Date of Service: 09/30/23 Chief Complaint: Gross Hematuria. [facility] Narrative KULWANT GAITAN, is a 83 M with a past medical history of essential hypertension, hyperlipidemia; with intolerance to statin and fenofibrate with myalgias, hypothyroidism, CAD; status post CABG x 3 (2020) plus LAD stent (2022) on BASA and Plavix, history of PE, history of atrial fibrillation; with history of radiofrequency ablation (2002), history of TIA, GERD; history of GI bleed, fibromyalgia, degenerative disc disease; with history of back surgery, history of appendectomy, BPH, history of renal calculi, history of benign neoplasm of both kidneys; with history of kidney surgery and osteoarthritis who presents to [facility] ER complaining of gross hematuria. Mr. Gaitan reports his symptoms began earlier today with the abrupt onset of gross hematuria as well as passing blood clots. He states he has taken his aspirin and Plavix today but he denies being on any other anticoagulants or antiplatelet agents. He also complains of diffuse joint pain which is chronic for him but he denies related dysuria, fever, chills, nausea, vomiting, chest pain or shortness of breath. He denies similar previous episodes. In the ER his CT scan of the abdomen and pelvis revealed a suspected polypoid bladder wall mass with a heterogenously enlarged prostate with indentation at the bladder base and b ilateral renal cysts that are more prominent on the left complicated by urinalysis positive for acute cystitis; with gross hematuria along with severe chills with leukocytosis of 12.9 present on admission and he was then admitted to the general medical floor for ongoing care for status expected to be greater than 48 hours. [facility] Medical History Acid reflux Atherosclerotic heart disease of [place] coronary artery without angina pectoris 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 [place] BPH (benign prostatic hyperplasia) CAD (coronary artery disease) Cardiomyopathy in other diseases classified elsewhere Coronary artery disease D-dimer, elevated DDD (degenerative disc disease) Dyspnea on exertion Edema Essential hypertension Fibromyalgia GI bleed Hemorrhoid HTN (hypertension) Hyperlipidemia Hypothyroid Kidney stones Nasal sinus polyp Postoperative atrial fibrillation Premature atrial contractions Premature ventricular contraction Pulmonary embolism Pulmonary nodule Syncope TIA (transient ischemic attack) White coat syndrome with hypertension Home Medications cholecalciferol (vitamin D3) 25 mcg (1,000 unit) capsule 25 mcg PO DAILY SUPPLEMENT 12/25/21 [History Last Taken 09/30/23] amlodipine 2.5 mg tablet 2.5 mg PO DAILY BLOOD PRESSURE #60 tabs 01/05/23 [Rx Last Taken 09/30/23] clopidogrel 75 mg tablet 75 mg PO DAILY BLOOD THINNER #30 tabs 01/05/23 [Rx Last Taken 09/30/23] blood pressure monitor #1 ea 01/15/23 [Rx Last Taken Unknown] metoprolol tartrate 50 mg tablet 50 mg PO BID BLOOD PRESSURE #60 tabs 02/24/23 [Rx Last Taken 09/30/23] levothyroxine 88 mcg tablet 88 mcg PO DAILY THYROID 05/29/23 [History Last Taken 09/30/23] acetaminophen 500 mg tablet (Tylenol Extra Strength) 1,000 mg PO Q6H PRN fever or pain 09/30/23 [History Last Taken 09/30/23] aspirin 81 mg tablet,delayed release (Adult Aspirin Regimen) 81 mg PO DAILY 09/30/23 [History Last Taken 09/30/23] cephalexin 500 mg capsule 500 mg PO BID #14 caps 09/30/23 [Rx Last Taken Unknown] diphenhydramine 25 mg-acetaminophen 500 mg tablet (Tylenol PM Extra Strength) 2 tab PO QHS 09/30/23 [History Last Taken 09/29/23] pantoprazole 40 mg tablet,delayed release 40 mg PO DAILY ACID REFUX 09/30/23 [History Last Taken 09/30/23] prednisone 5 mg tablet 5 mg PO DAILY 09/30/23 [History Last Taken 09/30/23] Allergy/AdvReac Type Severity Reaction Status Date / Time erythromycin base Allergy Hives Verified 09/30/23 09:39 amoxicillin [From Augmentin] AdvReac Severe Itching Verified 09/30/23 09:39 atorvastatin AdvReac Severe myalgias Verified 09/30/23 09:39 clavulanic acid AdvReac Severe Itching Verified 09/30/23 09:39 [From Augmentin] fenofibrate [From Tricor] AdvReac Severe myalgias Verified 09/30/23 09:39 levofloxacin [From Levaquin] AdvReac Unknown Unknown Verified 09/30/23 09:39 Family History Father CVA (cerebral vascular accident) Hypertension Heart disease Mother CAD (coronary artery disease) Brother Hypertension Brother CAD (coronary artery disease) Hypertension Sister Hypertension Sister Patent foramen ovale Sister Hypertension Lung cancer Other Dyspnea on exertion Surgical History H/O hemorrhoidectomy History of back surgery History of cholecystectomy History of coronary artery bypass graft x 3 (~02/26/21) History of coronary artery stent placement History of kidney surgery History of placement of stent in LAD coronary artery (01/05/23) History of radiofrequency ablation procedure for cardiac arrhythmia (~10/2002) Hx of appendectomy Hx of CABG Social History household members: none Smoking Status: Never smoker alcohol intake: never substance use type: does not use ROS ROS Narrative Review of systems: General: Patient denies fevers or chills. HENT: Denies headache, denies stuffy nose, denies sore throat EYES: Denies changes in vision or discharge from eyes. Resp: Denies cough, denies shortness of breath Cardiac: Denies chest pain, palpitations or heart racing. GI: Denies abdominal pain, denies changes in bowel, denies nausea or vomiting. : Patient admits to gross hematuria hematuria but he denies dysuria. Extremity: Denies swelling Musculoskeletal: Feels somewhat generally weak and unwell with patient c omplaining of arthralgias but he denies myalgias. Neuro: Patient denies headache, paresthesias or focal neurologic weakness. Heme: Patient admits to gross hematuria but he denies bruising. Skin: Denies rashes Psychiatric: No complaints voiced related uncontrolled depression or anxiety. Endocrine: No polyuria, polydipsia or polyphagia. The rest of the 14 point ROS was negative except for positives in HPI. Vital Signs Vital Signs Vital Signs: 09/30/23 09:37 09/30/23 11:37 09/30/23 13:00 Temperature 97.8 F Temperature Source Temporal Pulse Rate 59 L 51 L 57 L Respiratory Rate 16 16 14 Blood Pressure 119/75 135/98 H 150/82 H Blood Pressure Mean 89 110 104 Pulse Ox 98 93 95 Oxygen Delivery Method Room Air Room Air Room Air 09/30/23 15:00 Temperature Temperature Source Pulse Rate 57 L Respiratory Rate 16 Blood Pressure 148/87 H Blood Pressure Mean 107 Pulse Ox 97 Oxygen Delivery Method Room Air Weight Weight: 170 lb Body Mass Index (BMI) 23.7 Physical Exam Const alert, oriented x3, no apparent distress, average body habitus and healthy appearing General Appearance: cooperative HEENT normocephalic, head/scalp atraumatic, hearing grossly normal bilaterally and moist oral mucous membranes Eyes PERRL and EOMs intact bilaterally Neck no lymphadenopathy and supple Resp normal respiratory effort, no retractions, no use of accessory muscles and clear to auscultation bilaterally Cardio regular rate and regular rhythm GI normal to inspection, nondistended, normoactive bowel sounds, soft to palpation, non-tender and non-distended Extremity normal to inspection and full ROM Skin Skin Narrative: Negative for evidence of abscess, jaundice or rash. Neuro oriented x3, CN's II-XII intact bilaterally, moves all extremities and no focal motor deficits Sensorium / Orientation: awake, alert, oriented to person, oriented to place and oriented to time Speech: speech normal Motor Exam: strength 5/5 throughout Psych affect normal Results Medical Records Data Attestation: I reviewed the patient's medical records Lab / Micro Data Attestation: I reviewed the patient's lab results. 09/30/23 10:05 09/30/23 10:05 Labs: Laboratory Results - last 24 hr 09/30/23 10:05: WBC 12.9 H, RBC 4.49 L, Hgb 13.9, Hct 42.6, MCV 94.9 H, MCH 31.0, MCHC 32.6, RDW Std Deviation 45.2 H, RDW Coeff of Sukumar 12.8, Plt Count 255, MPV 9.6, Immature Gran % (Auto) 0.300, Neut % (Auto) 82.8 H, Lymph % (Auto) 6.9 L, Rooks % (Auto) 9.4, Eos % (Auto) 0.3, Baso % (Auto) 0.3, Absolute Neuts (auto) 10.7 H, Absolute Lymphs (auto) 0.89, Nucleated RBC % 0, Sodium 141, Potassium 3.9, Chloride 113 H, Carbon Dioxide 23.0, Anion Gap 5, BUN 26 H, Creatinine 1.36 H, Estim Creat Clear Calc 45.37, Est GFR (MDRD) Af Amer 65, Est GFR (MDRD) Non- Af 53 L, BUN/Creatinine Ratio 19.1, Glucose 111 H, Calcium 8.6, Urine Color [place], Urine Clarity Cloudy, Urine pH 6.5, Ur Specific [place] 1.015, Urine Protein 500 H, Urine Glucose (UA) Normal, Urine Ketones 5 H, Urine Occult Blood 250 H, Urine Nitrite Positive H, Urine Bilirubin 1 H, Urine Urobilinogen 1 H, Ur Leukocyte Esterase 500 H, Urine RBC > 100 SEEN, Urine WBC >100 SEEN, Ur Squamous Epith Cells 0 SEEN, Urine Bacteria 0 SEEN, Urine Mucus 0 SEEN Imaging Radiology Impression Abdomen/Pelvis CT 09/30/23 09:58 IMPRESSION: Diffuse bladder wall thickening with polypoid lesion at the base of the bladder. Heterogeneous enlargement of the prostate with indentation at the bladder base. Bilateral renal cysts more prominent on the left side. Electronically Signed: Charanjit Smith MD at 11:30 EDT Reading Location ID and State: [address] [place] [address] , Service support , Assessment & Plan Assessment/Plan (1) Hematuria: QUALIFIERS: Hematuria type: gross Qualified Code(s): R31.0 - Gross hematuria (2) Bladder mass: (3) Acute cystitis with hematuria: (4) Adverse drug reaction: QUALIFIERS: Encounter type: initial encounter Qualified Code(s): T50.905A - Adverse effect of unspecified drugs, medicaments and biological substances, initial encounter PLAN: Plan 1. Gross hematuria with CT positive for suspected polypoid bladder wall mass with a heterogenously enlarged prostate with indentation at the bladder base and bilateral cysts are more prominent on the left in the setting of known BPH and previously known benign renal masses with history of kidney surgery - Admit to general medical floor. Continue conservative care and consult Dr. Morgan of urology to see this patient on rounds in the a.m. with help appreciated in advance. 2. Acute cystitis; with gross hematuria complicating #1 - Continue empiric IV Rocephin and await culture and sensitivity data. Give Tylenol as needed [id number] (level 1-5 out of 10) pain or fever. 3. Adverse drug reaction to combination of baby aspirin and Plavix compounding #1 & #2 - Noted. These agents will be held until further notice. 4. CAD; status post CABG x 3 (2020) plus LAD stent (2022) on BASA and Plavix - Noted. 5. Essential hypertension - Hold scheduled antihypertensives until bleeding has stopped. Give IV hydralazine as needed for systolic blood pressure greater than 1 or 60 mmHg. 6. Hyperlipidemia; with intolerance to statin and fenofibrate with myalgias - Noted. Check lipid profile. 7. Hypothyroidism - Resume Synthroid as previous. 8. History of PE - Noted. 9. History of atrial fibrillation; with history of radiofrequency ablation (2002) - Stable. 10. History of TIA - Noted. 11. GERD; history of GI bleed - Noted. 12. Fibromyalgia - Stable. 13. DDD; with history of back surgery - Noted. 14. History of appendectomy - Noted. 15. History of renal calculi - Noted. 16. DVT prophylaxis - SCD's only in light of #1. Total time: Approximately 75 minutes. Charges/Coding Visit Charges Inpatient E&M: 96742 Init Hosp L3
[2023-09-30] MEDS: 0.9% Normal Saline (1000mL) 1,000 ML 70 ML IV (17:24)
[2023-09-30] MEDS: Acetaminophen 500 MG Tablet 1000 MG PO (18:38)
--- NOTE | 2023-09-30 19:01 | NURSING ---
discussed conversation regarding consult for urology with house nursing locomotive supervisor Shara as requested by Dr. Olivia
[2023-09-30 19:12] LABS: PSA,Total - Annual Screen 5.03 ng/mL (0.00-4.00)
[2023-09-30] MEDS: Lactobacillis Acidophilus 2 CAP PO (21:31)
[2023-09-30] MEDS: DiphenhydrAMINE 25 MG Capsule 50 MG PO (21:32)
[2023-10-01] VITALS (19 sets, daily range): BP systolic 89–132; BP diastolic 47–82; PULSE 66–89; RESP 11–18; TEMP 36.3–37.2; O2SAT 91–96; BMI 23.2
[2023-10-01] MEDS: Levothyroxine 88 MCG Tablet PO (06:02)
[2023-10-01] MEDS: 0.9% Normal Saline (1000mL) 1,000 ML 70 ML IV (06:02)
[2023-10-01 06:11] LABS: Absolute Lymphocyte Count 0.71 X10^3/uL (0.83-4.51); Absolute Neutrophil Count 20.9 X10^3/uL (2.0-7.7); Basophil# 0.08 X10^3/uL; Basophil% 0.3 % (0-1); Differential Indicated SCAN CRITERIA MET; Hematocrit 37.3 % (40-54); Hemoglobin 12.2 g/dL (13.0-16.5); Lymphocyte # 0.71 X10^3/ul (0.83-4.51); Mean Corp Hgb Conc 32.7 g/dL (32-36); Mean Corpuscular Hgb 31.1 pg (27.0-32.0); Mean Corpuscular Volume 95.2 fL (80-94); Monocyte# 1.36 X10^3/uL; Monocyte% 5.8 % (0-10); NRBC Flagged by Analyzer 0 % (0-5); Neutrophil # 20.93 X10^3/uL (2.7-7.7); Neutrophil % 89.5 % (47-70); POSITIVE DIFFERENTIAL YES; Platelet Count 228 K/mm3 (150-450); RBC Distribution Width CV 13.3 % (11.6-14.6); RBC Distribution Width SD 46.6 fl (35.1-43.9); Red Blood Count 3.92 M/mm3 (4.6-6.2); White Blood Count 23.4 K/mm3 (4.4-11.0)
[2023-10-01 06:34] LABS: ALB/GLOB Ratio 0.8 RATIO (0.9-2.4); AST(SGOT) 209 U/L (15-37); Alanine Aminotransfer ALT/SGPT 185 U/L (16-61); Albumin, Serum 2.3 g/dL (3.2-5.0); Alkaline Phosphatase 213 U/L (45-117); Anion Gap 5 (5-15); BUN 31 mg/dL (7-18); BUN/Creat Ratio 16.5 RATIO (10-20); Chloride 112 mmol/L (98-107); Creatinine, Serum 1.88 mg/dL (0.70-1.30); EST Glomerular Filtration Rate 37 mL/min (>60); Est Glom Filt Rate - Afr Amer 45 mL/min (>60); Estimated Creatinine Clearance 32.82 ml/min; Glucose 91 mg/dL (74-106); Magnesium 1.9 mg/dL (1.6-2.6); Phosphorus 4.4 mg/dL (2.5-4.9); Potassium 4.3 mmol/L (3.5-5.1); Protein, Total 5.3 g/dL (6.4-8.2); Sodium Level 141 mmol/L (136-145)
[2023-10-01 07:02] LABS: Differential Comment SCANNED
[2023-10-01] MEDS: Pantoprazole Sodium 40 MG Tablet PO (08:17)
[2023-10-01] MEDS: Lactobacillis Acidophilus 2 CAP PO ×2 (08:17→21:53)
[2023-10-01] MEDS: Cholecalciferol (VIT D3) 25 MCG TABLET (1,000 UNITS) PO (08:17)
[2023-10-01] MEDS: predniSONE 5 MG Tablet PO (08:17)
[2023-10-01] MEDS: Lactated Ringers 1,000 ML 999 ML IV ×2 (08:33→09:50)
--- NOTE | 2023-10-01 08:33 | US_ITS ---
STUDY: ABDOMINAL ULTRASOUND - RIGHT UPPER QUADRANT REASON FOR VISIT: Male, 83 years old RUQ US for elevated LFTs TECHNIQUE: Ultrasound evaluation of the right upper quadrant was performed with real-time and static gastelum-scale imaging. TECHNICAL QUALITY: Adequate. COMPARISON: CT 09/30/2023 FINDINGS: Liver: The liver measures 17.3 cm. There is normal echogenicity of the liver. The bile ducts are within normal limits. There is hepatic color flow. The direction of portal flow is hepatopetal. There is no demonstrated mass lesion. Gallbladder: The patient is status post cholecystectomy. es. Common Bile Duct (C.B.D.): The common bile duct measures 4 mm. Pancreas: Normal size of the head, body and tail of the pancreas. There is normal echogenicity of the pancreas. There is no demonstrated pancreatic mass or cyst. Right Kidney: Normal size of the right kidney. The right kidney measures 8.9 cm. Normal renal cortex. The right cortex measures 1.4 cm. Subcentimeter cyst lower pole right kidney. There is no right hydronephrosis. US/Abdomen Limited IMPRESSION: Normal right upper quadrant ultrasound examination after cholecystectomy. Electronically Signed: Jose Cox MD at 23:09 EDT ,
--- NOTE | 2023-10-01 08:37 | NURSING ---
message sent to warehouseman that we are giving patient 2l bolus potential transfer to icu for sepsis. sound technician supervisor replied they had talked with Dr. Wright and working on getting an icu bed. pt placed on tele monitor and cspo2, 2nd IV started. primary RN Myrna remained bedside. pt a&ox3, talkative and stated daughter stated would be here by 0900
[2023-10-01] MEDS: 0.9% Saline Lock 10 ML Syringe IV (08:52)
--- NOTE | 2023-10-01 08:59 | NURSING ---
called dr. perdomo's office as pt states he has seen dr. perdomo in the past. confirmed with Dr. Perdomo's office that he is out of town and will be back on thursday.
--- NOTE | 2023-10-01 09:11 | NURSING ---
primary RN updated on icu7 for bed
--- NOTE | 2023-10-01 09:19 | CASEMGMT ---
SHENA GAMBINO NOTE: Insurance review for hospitals In-network with?[employer] PPO Insurance if transfer is recommended is as follows: [facility], [place], [facility], [facility], [facility], [facility], [place], [facility], [facility]), and . Sakina REYNOSON SHENA CM
[2023-10-01] MEDS: 0.9% Normal Saline (250mL Bag) 250 ML 15 ML IV (09:21)
[2023-10-01] MEDS: Ceftriaxone 2 GM in 0.9% Normal Saline (50mL MB+) 50 ML IV (09:21)
--- NOTE | 2023-10-01 09:37 | NURSING ---
dr thao informed of lactic acid of 2.[address] primary RN to icu transported with tele monitoring.
[2023-10-01 12:52] LABS: Reflex Lactate? Y
[2023-10-01] MEDS: Lactated Ringers 1,000 ML 500 ML IV ×2 (13:03→15:07)
[2023-10-01 13:15] LABS: Hematocrit 35.6 % (40-54); Hemoglobin 11.8 g/dL (13.0-16.5); Mean Corp Hgb Conc 33.1 g/dL (32-36); Mean Corpuscular Hgb 31.6 pg (27.0-32.0); Mean Corpuscular Volume 95.4 fL (80-94); Mean Platelet Vol. 10.1 fl (6.2-12.0); Platelet Count 204 K/mm3 (150-450); RBC Distribution Width CV 13.3 % (11.6-14.6); RBC Distribution Width SD 46.6 fl (35.1-43.9); Red Blood Count 3.73 M/mm3 (4.6-6.2); White Blood Count 18.5 K/mm3 (4.4-11.0)
--- NOTE | 2023-10-01 13:46 | PN.HOSP_ITS ---
Reason for Visit Reason for Visit: Diagnoses Acute cystitis with hematuria (09/30/23) Other specified disorders of bladder (09/30/23) Gross hematuria (09/30/23) Adverse effect of unspecified drugs, medicaments and biological substances, initial encounter (09/30/23) Subjective Subjective Patient came to the ED yesterday with gross hematuria with clots. Has history of microscopic hematuria but had never had gross hematuria. Patient is on aspir in and Plavix given history of CAD with CABG in 2020 and more recently drug- eluting stent placement x 1 in 12/2022. Patient was found on CT abdomen pelvis to have diffuse bladder wall thickening with a 1.5 cm x 1.4 cm polypoid lesion at the base of the bladder. He was also found to have heterogenous enlargement of the prostate with indentation of the bladder base. Andrews catheter was placed in the ED but placement was noted to be difficult and quite painful for the patient. UA sample showed 500 leukocyte esterase, positive nitrites concerning for UTI. Patient actually had fairly quick clearance of hematuria after Andrews placement and initially plan was for him to go home with Andrews and outpatient urology follow-up. However, patient developed fevers and chills while in the ED concerning for possible UTI related sepsis and was admitted for further management. He also was not tolerating the Andrews catheter well and it was ultimately removed in the ED. Notably, admitting provider consulted urology for further management but we do not have urology services available here until 10/04. Patient was admitted to [facility] and again had fevers and chills yesterday evening. This morning his WBC count jumped from 12K to 23K and he became hypotensive. Lactate was 2.0 at that time. Morning labs also showed worsening BART and newly elevated LFTs. Given high concern for sepsis due to gram-negative bacteremia from UTI, patient was started on 30 cc/kg IV fluids and transferred to the ICU for further management. I saw the patient at the bedside in the midmorning, daughter was also present at bedside. Patient was sitting up fairly comfortably in bed at that time and conversing normally. He denied any current fevers or chills. Denied any acute pain or discomfort. He did note that he has had minimal urine output since Andrews catheter was pulled yesterday. Per nursing staff, has had multiple bladder scans done that showed minimal urine in the bladder. The urine that he has produced does remain fairly red. His blood pressure was remaining in the 90s over 60s, was still finishing the 30 cc/kg fluid bolus at that time. Had repeat CBC drawn early this afternoon and hemoglobin remained stable (12.2 to 11.8). Discussed with patient and daughter and we will not plan to transfer the patient for urology services at this time. I suspect that the small polypoid bladder lesion may be contributing to the hematuria but also suspect that the UTI could be contributing and patient being on aspirin and Plavix also played a role. Now after a somewhat traumatic Andrews placement, would suspect this factors into the hematuria as well. Patient will need close follow-up with urology for likely cystoscopy with biopsy of the bladder mass. However, this can be done in the office with urology next week. Importantly, patient has history of severe CAD with prior CABG and stent place ment about 9 months ago. Patient was scheduled to follow-up with [facility] on 10/13 and patient and daughter noted that they were hoping to potentially discontinue patient's Plavix in November. Patient would need to be off Plavix for about 5 days for cystoscopy with biopsy of this bladder mass with urology. Given that he is 9 months out from stent placement, I will plan to restart his baby aspirin tomorrow but hold his Plavix until urology follow-up early next week. Objective Data Objective Data Vital Signs: Vital Signs Temp Pulse Resp BP Pulse Ox O2 Del Method O2 Flow Rate 98.5 F 70 11 L 107/65 93 Room Air 95 10/01/23 12:00 10/01/23 13:10/01/23 13:10/01/23 13:10/01/23 13:10/01/23 13:09/30/23 18:34 Oxygen Flow Rate (L/min) 95 Oxygen Delivery Method Room Air Weight: 75.3 kg Body Mass Index (BMI) 23.2 Intake & Output: Intake and Output for Last 24 Hours 09/29/23 09/30/23 10/01/23 23:59 23:59 23:59 Intake Total 50 / 50 3455.83 / 3455.83 Output Total 100 / 100 200 / 200 Balance -50 / -50 3255.83 / 3255.83 Lab / Micro Data 10/01/23 13:02 10/01/23 05:55 Labs: Laboratory Results - last 24 hr 09/30/23 10:05: PSA Screen 5.03 H 10/01/23 05:55: WBC 23.4 H, RBC 3.92 L, Hgb 12.2 L, Hct 37.3 L, MCV 95.2 H, MCH 31.1, MCHC 32.7, RDW Std Deviation 46.6 H, RDW Coeff of Sukumar 13.3, Plt Count 228, MPV 10.0, Immature Gran % (Auto) 1.400 H, Neut % (Auto) 89.5 H, Lymph % (Auto) 3.0 L, Ralls % (Auto) 5.8, Eos % (Auto) 0.0, Baso % (Auto) 0.3, Absolute Neuts (auto) 20.9 H, Absolute Lymphs (auto) 0.71 L, Nucleated RBC % 0, Differential Comment SCANNED, Sodium 141, Potassium 4.3, Chloride 112 H, Carbon Dioxide 24.0, Anion Gap 5, BUN 31 H, Creatinine 1.88 H, Estim Creat Clear Calc 32.82, Est GFR (MDRD) Af Amer 45 L, Est GFR (MDRD) Non-Af 37 L, BUN/Creatinine Ratio 16.5, Glucose 91, Calcium 8.0 L, Phosphorus 4.4, Magnesium 1.9, Total Bilirubin 1.80 H , AST 209 H, ALT 185 H, Alkaline Phosphatase 213 H, Total Protein 5.3 L, Albumin 2.3 L, Globulin 3.0, Albumin/Globulin Ratio 0.8 L 10/01/23 08:47: Lactic Acid 2.0 10/01/23 13:02: WBC 18.5 H, RBC 3.73 L, Hgb 11.8 L, Hct 35.6 L, MCV 95.4 H, MCH 31.6, MCHC 33.1, RDW Std Deviation 46.6 H, RDW Coeff of Sukumar 13.3, Plt Count 204, MPV 10.1 Micro: Microbiology 09/30/23 10:05 Urine, Clean Catch Urine Culture - Preliminary Presumptive E. coli Physical Exam Const alert, oriented x3, no apparent distress and average body habitus Constitutional Narrative: Pleasant elderly male, sitting up comfortably in bed, conversing normally, no acute distress. General Appearance: cooperative and comfortable HEENT normocephalic, head/scalp atraumatic, hearing grossly normal bilaterally and nasal mucous membranes and turbinates normal Eyes PERRL, EOMs intact bilaterally and conjunctivae normal Neck full ROM Chest inspection of chest normal Resp normal respiratory effort, normal air movement, no use of accessory muscles and clear to auscultation bilaterally Cardio regular rate, regular rhythm, no murmurs and peripheral pulses 2+ throughout GI normal to inspection, nondistended, normoactive bowel sounds, soft to palpation, non-tender and non-distended Negative for no CVA tenderness Bladder / Kidney Exam: No catheter in place and bladder normal to palpation Back/Spine normal ROM Extremity normal to inspection, full ROM and no pedal edema Skin no rashes or lesions noted Neuro moves all extremities and no focal motor deficits Speech: speech normal Psych mental status grossly normal Assessment & Plan Assessment/Plan (1) Sepsis: QUALIFIERS: Sepsis type: Pneumococcus Sepsis acute organ dysfunction status: with acute organ dysfunction Severe sepsis acute organ dysfunction type: acute renal failure Acute renal failure type: unspecified Severe sepsis shock status: without septic shock Qualified Code(s): A40.3 - Sepsis due to Streptococcus pneumoniae; R65.20 - Severe sepsis without septic shock; N17.9 - Acute kidney failure, unspecified (2) UTI (urinary tract infection): (3) Bladder mass: (4) BART (acute kidney injury): (5) Gross hematuria: PLAN: Plan Patient is an 83-year-old male who presented to [facility] ED on 09/30/2023 with gross hematuria. 1. Sepsis secondary to E. coli UTI Initially admitted to [facility], not septic on admission. However, that sepsis criteria on hospital day 2 with worsening leukocytosis, new BART, hypotension, elevated lactate in setting of UTI. Given high concern for gram-negative sepsi s, transferred to ICU on 09/30. BP responsive to 30 cc/kg IV fluid bolus. ? Urine culture preliminarily positive for > 100K E. coli. Blood cultures pending. Continue treatment with IV ceftriaxone for now. Hold on further IV fluids, can start Levophed as needed to maintain MAP greater than 65. Hold on executive communications manager consult for now, can add as needed. 2. Gross hematuria, mild acute blood loss anemia See subjective above for further details. CT abdomen pelvis on admit showed diffuse bladder wall thickening with a 1.5 cm x 1.4 cm polypoid lesion at the base of the bladder. Suspected that hematuria is multifactorial due to bladder lesion with UTI while on aspirin and Plavix dual therapy. Had traumatic Andrews placement in the ED suspected due to BPH, likely also factoring in. Andrews removed in ED due to patient discomfort. ? Hemoglobin 13.9 on admit, at baseline. Repeat hemoglobin 12.2 on morning of 09/30, with recheck 11.8 on afternoon of 09/30. Aspirin Plavix held on admission. Will restart baby aspirin tomorrow morning and continue to hold Plavix. Monitor daily CBC. Monitor closely for signs of worsening hematuria. Unfortunately no urology available here this week. Will plan for close outpatient follow-up with urology in the office next week for likely cystoscopy with biopsy. 3. History of CAD s/p CABG and recent stenting ? Follows with [facility]. Most recent stenting was done in December 2022. On home aspirin and Plavix. Aspirin and Plavix both held on admit, will restart aspirin on 10/01. Will continue to hold Plavix for suspected urology procedure next week. Has outpatient follow-up with cardiology scheduled for 10/13. 4. BART on CKD stage III ? Creatinine 1.36 on admit, appeared to be at baseline creatinine around 1.1- 1.4. Worsened to creatinine 1.88 on 09/30, suspected due to sepsis as noted above. Treating sepsis as noted above. Trend daily BMP and urine output. 5. Elevated transaminases ? AST 209, ALT 185, alk phos 213, T. bili 1.80 on 09/30. No previous history of elevated LFTs. CT abdomen pelvis on admit showed history of cholecystectomy, decreased liver attenuation consistent with steatosis, no other RUQ pathology. Seems most consistent with mild ischemic hepatitis due to sepsis but will obtain RUQ ultrasound for further evaluation. Trend daily LFTs. 6. Suspected BPH with obstructive symptoms ? No reported history of BPH per patient. However given UTI on admit and heterogenously enlarged prostate on CT on admit, strongly suspect BPH. PSA mildly elevated at 5.03. Will plan to initiate patient on Flomax prior to discharge and patient will need close outpatient urology follow-up as noted above. Chronic medical conditions: ? Recent history of VTE s/p IVC filter placement: Found on CT imaging on 05/21/2023 to have a saddle PE, started on Eliquis and stable for discharge on 05/23. Unfortunately had an upper GI bleed with acute blood loss anemia requiring admission on . AC was discontinued and IVC filter was placed on 06/03. ? History of GERD with Ogden's esophagus and recent upper GI bleed: Had upper GI bleed while on Eliquis as noted above. Per Dr. Rose's note on 07/15, patient has intermittent reflux typically related to lifestyle choices, Protonix was reduced from twice daily to daily at that time. Currently stable and asymptomatic. Continue home PPI daily. ? Hypertension: Holding home amlodipine and Lopressor. ? Hyperlipidemia: Intolerant to statins and fenofibrate. Monitor outpatient. ? Hypothyroidism: Stable. Continue home Synthroid. ? History of A-fib s/p radiofrequency ablation: Stable in normal sinus rhythm. ? History of KHANH positive with myalgias: Continue home low-dose prednisone. ? Insomnia: Continue home Benadryl. DVT prophylaxis: SCDs CODE STATUS: Full code, verified Expected disposition: Home, TBD Total clinical time spent by myself addressing the patient's medical issues, reviewing all the data, and collaborating with patient's care team: 50 minutes. Charges/Coding Visit Charges Inpatient E&M: 07573 Subs Hosp L3
[2023-10-01 13:56] LABS: Lactic Acid 2.4 mmol/L (0.4-1.9)
--- NOTE | 2023-10-01 15:40 | CASEMGMT ---
SHENA GAMBINO Assessment Face to Face with patient for initial transition planning/care coordination assessment. SHENA GAMBINO introduced self and role at [facility], pt voices understanding. Pt is A&Ox4 and is resting comfortably in bed and is calm. Care providers, pharmacy, and demographics verified. Admitting dx: Gross Hematuria with Bladder Mass and UTI PCP: [facility] Specialists: [facility] Preferred Pharmacy: [facility] Insurance: [employer] [facility] Prescription Benefit: Yes LNOK: Luna Martinez (Daughter) Living Arrangements: Pt lives alone in a single story home with a BM and a ramp to enter. Pt states that he does not go downstairs. Pt daughter lives next door. ADLs/IADLs: Ind Transportation: Self, Daughter DME: Cane and walker at home but the pt states that he does not use. Walk-in shower with GB and seat. Raised toilet seat. HHC/SNF: denies SNF history or needs. Hx with [facility] HH Pt?s goal: Return to PLOF and return home Plan: Plan is TBD. It appears Dr. Perdomo has signed out from today until 10/04. Dr. Wright states that the pt will be staying here for now and if the pt does not get better medically he will then be transferred to a tertiary facility if needed. If the pt does DC from [facility], the pt denies the need for HHC or SNF placement at this time. Pt states that he might be interested in OP therapy depending on his progression. PT eval is pending. CM to follow. Mesha Rubin RN, CM
[2023-10-01] MEDS: DiphenhydrAMINE 25 MG Capsule 50 MG PO (21:53)
[2023-10-02] VITALS (13 sets, daily range): BP systolic 116–149; BP diastolic 62–94; PULSE 70–85; RESP 13–18; TEMP 36.4–37; O2SAT 90–96; BMI 24.8
[2023-10-02] MEDS: 0.9% Normal Saline (250mL Bag) 250 ML 15 ML IV (02:05)
[2023-10-02 04:45] LABS: Hematocrit 34.3 % (40-54); Hemoglobin 11.3 g/dL (13.0-16.5); Mean Corp Hgb Conc 32.9 g/dL (32-36); Mean Corpuscular Hgb 31.3 pg (27.0-32.0); Mean Platelet Vol. 10.1 fl (6.2-12.0); Platelet Count 197 K/mm3 (150-450); RBC Distribution Width CV 13.2 % (11.6-14.6); RBC Distribution Width SD 45.8 fl (35.1-43.9); Red Blood Count 3.61 M/mm3 (4.6-6.2); White Blood Count 14.4 K/mm3 (4.4-11.0)
[2023-10-02 05:02] LABS: AST(SGOT) 74 U/L (15-37); Alanine Aminotransfer ALT/SGPT 110 U/L (16-61); Albumin, Serum 2.1 g/dL (3.2-5.0); Alkaline Phosphatase 153 U/L (45-117); Anion Gap 4 (5-15); BUN 26 mg/dL (7-18); BUN/Creat Ratio 19.7 RATIO (10-20); Bilirubin, Direct 0.21 mg/dL (0.00-0.30); Chloride 115 mmol/L (98-107); Creatinine, Serum 1.32 mg/dL (0.70-1.30); EST Glomerular Filtration Rate 55 mL/min (>60); Est Glom Filt Rate - Afr Amer 67 mL/min (>60); Estimated Creatinine Clearance 46.75 ml/min; Glucose 95 mg/dL (74-106); Potassium 3.7 mmol/L (3.5-5.1); Protein, Total 5.1 g/dL (6.4-8.2); Sodium Level 144 mmol/L (136-145)
[2023-10-02] MEDS: Levothyroxine 88 MCG Tablet PO (05:33)
[2023-10-02] MEDS: Lactobacillis Acidophilus 2 CAP PO ×2 (07:43→20:25)
[2023-10-02] MEDS: Cholecalciferol (VIT D3) 25 MCG TABLET (1,000 UNITS) PO (07:44)
[2023-10-02] MEDS: predniSONE 5 MG Tablet PO (07:44)
[2023-10-02] MEDS: Pantoprazole Sodium 40 MG Tablet PO (07:44)
[2023-10-02] MEDS: Aspirin 81 MG TAB.CHEW PO (07:44)
--- NOTE | 2023-10-02 09:30 | CASEMGMT ---
Dr. Wright states that the pt will transfer to [facility] today. Report called and given to SHENA Malin CM.
[2023-10-02] MEDS: Ceftriaxone 2 GM in 0.9% Normal Saline (50mL MB+) 50 ML IV (09:32)
--- NOTE | 2023-10-02 11:43 | PCM.PN.HOSP ---
Reason for Visit Reason for Visit: Diagnoses Sepsis due to Streptococcus pneumoniae (09/30/23) Acute kidney failure, unspecified (09/30/23) Acute cystitis with hematuria (09/30/23) Other specified disorders of bladder (09/30/23) Urinary tract infection, site not specified (09/30/23) Gross hematuria (09/30/23) Severe sepsis without septic shock (09/30/23) Adverse effect of unspecified drugs, medicaments and biological substances, initial encounter (09/30/23) Subjective Subjective No acute events overnight. Patient seen at bedside this morning. He was sitting up comfortably in bedside chair, conversing normally, no acute distress. He appeared well this morning, had good energy and skin tone. He has been urinating well on his own and states the urine color has become much more clear since yesterday, only slightly reddish this morning. Denies any fevers or chills. Does have some pain with urination but this is improved from yesterday. No other acute concerns. Objective Data Objective Data Vital Signs: Vital Signs Temp Pulse Resp BP Pulse Ox O2 Del Method O2 Flow Rate 98.3 F 85 16 130/86 H 91 Room Air 95 10/02/23 08:00 10/02/23 09:00 10/02/23 09:00 10/02/23 09:00 10/02/23 09:00 10/02/23 09:00 09/30/23 18:34 Oxygen Flow Rate (L/min) 95 Oxygen Delivery Method Room Air Weight: 80.9 kg Body Mass Index (BMI) 24.8 Intake & Output: Intake and Output for Last 24 Hours 09/30/23 10/01/23 10/02/23 23:59 23:59 23:59 Intake Total 50 / 50 5855.83 / 5855.83 600 / 600 Output Total 100 / 100 875 / 875 200 / 200 Balance -50 / -50 4980.83 / 4980.83 400 / 400 Lab / Micro Data 10/02/23 04:33 10/02/23 04:33 Labs: Laboratory Results - last 24 hr 10/01/23 13:02: WBC 18.5 H, RBC 3.73 L, Hgb 11.8 L, Hct 35.6 L, MCV 95.4 H, MCH 31.6, MCHC 33.1, RDW Std Deviation 46.6 H, RDW Coeff of Sukumar 13.3, Plt Count 204, MPV 10.1, Lactic Acid 2.4 H* 10/02/23 04:33: WBC 14.4 H, RBC 3.61 L, Hgb 11.3 L, Hct 34.3 L, MCV 95.0 H, MCH 31.3, MCHC 32.9, RDW Std Deviation 45.8 H, RDW Coeff of Sukumar 13.2, Plt Count 197, MPV 10.1, Sodium 144, Potassium 3.7, Chloride 115 H, Carbon Dioxide 25.0, Anion Gap 4 L, BUN 26 H, Creatinine 1.32 H, Estim Creat Clear Calc 46.75, Est GFR (MDRD) Af Amer 67, Est GFR (MDRD) Non-Af 55 L, BUN/Creatinine Ratio 19.7, Glucose 95, Calcium 8.0 L, Total Bilirubin 0.70, Direct Bilirubin 0.21, AST 74 H, ALT 110 H, Alkaline Phosphatase 153 H, Total Protein 5.1 L, Albumin 2.1 L, Globulin 3.0 Micro: Microbiology 09/30/23 10:05 Urine, Clean Catch Urine Culture - Final Escherichia coli Radiography Diagnostic Testing: Radiology Impression Abdomen Ultrasound 10/01/23 08:33 IMPRESSION: Normal right upper quadrant ultrasound examination after cholecystectomy. Electronically Signed: Jose Cox MD at 23:09 EDT , Physical Exam Const alert, oriented x3, no apparent distress and average body habitus Constitutional Narrative: Pleasant elderly male, sitting up comfortably in bedside chair, conversing normally, no acute distress. General Appearance: cooperative and comfortable HEENT normocephalic, head/scalp atraumatic, hearing grossly normal bilaterally and nasal mucous membranes and turbinates normal Eyes PERRL, EOMs intact bilaterally and conjunctivae normal Neck full ROM Chest inspection of chest normal Resp normal respiratory effort, normal air movement, no use of accessory muscles and clear to auscultation bilaterally Cardio regular rate, regular rhythm, no murmurs and peripheral pulses 2+ throughout GI normal to inspection, nondistended, normoactive bowel sounds, soft to palpation, non-tender and non-distended Negative for no CVA tenderness Bladder / Kidney Exam: No catheter in place and bladder normal to palpation Back/Spine normal ROM Extremity normal to inspection, full ROM and no pedal edema Skin no rashes or lesions noted Neuro moves all extremities and no focal motor deficits Speech: speech normal Psych mental status grossly normal Assessment & Plan Assessment/Plan (1) Sepsis: QUALIFIERS: Sepsis type: Pneumococcus Sepsis acute organ dysfunction status: with acute organ dysfunction Severe sepsis acute organ dysfunction type: acute renal failure Acute renal failure type: unspecified Severe sepsis shock status: without septic shock Qualified Code(s): A40.3 - Sepsis due to Streptococcus pneumoniae; R65.20 - Severe sepsis without septic shock; N17.9 - Acute kidney failure, unspecified (2) UTI (urinary tract infection): (3) Bladder mass: (4) BART (acute kidney injury): (5) Gross hematuria: PLAN: Plan Patient is an 83-year-old male who presented to [facility] ED on 09/30/2023 with gross hematuria. 1. Sepsis secondary to E. coli UTI, improving Initially admitted to [facility], not septic on admission. However, that sepsis criteria on hospital day 2 with worsening leukocytosis, new BART, hypotension, elevated lactate in setting of UTI. Given high concern for gram-negative sepsis, transferred to ICU on 09/30. BP responsive to 30 cc/kg IV fluid bolus. ? Urine culture grew > 100K pansensitive E. coli. Blood cultures remain pending. Patient doing very well, has not needed pressors. Stable for transfer out of ICU on 10/01. Continue IV ceftriaxone for now. If remains stable tomorrow, will likely plan for discharge home on p.o. antibiotics to complete a 7-day course of antibiotics total. 2. Gross hematuria, mild acute blood loss anemia See subjective above for further details. CT abdomen pelvis on admit showed diffuse bladder wall thickening with a 1.5 cm x 1.4 cm polypoid lesion at the base of the bladder. Suspected that hematuria is multifactorial due to bladder lesion with UTI while on aspirin and Plavix dual therapy. Had traumatic Andrews placement in the ED suspected due to BPH, likely also factoring in. Andrews removed in ED due to patient discomfort. ? Hemoglobin 13.9 on admit, at baseline. Repeat hemoglobin 12.2 on morning of 09/30, with recheck 11.8 on afternoon of 09/30. Aspirin Plavix held on admission. Hemoglobin remained stable on 10/01. Restarted home aspirin on morning of 10/01. Will monitor closely for worsening hematuria and follow-up hemoglobin tomorrow morning. If remains stable, likely okay for discharge home tomorrow. Planning to hold Plavix until patient sees urology in the office next Thursday or Thursday for suspected cystoscopy with biopsy. 3. History of CAD s/p CABG and recent stenting ? Follows with [facility]. Most recent stenting was done in December 2022. On home aspirin and Plavix. Aspirin and Plavix both held on admit, restarted aspirin on 10/01. Will continue to hold Plavix for suspected urology procedure next week. Has outpatient follow-up with cardiology scheduled for 10/13. 4. BART on CKD stage III, resolved ? Creatinine 1.36 on admit, appeared to be at baseline creatinine around 1.1-1.4. Worsened to creatinine 1.88 on 09/30, suspected due to sepsis as noted above. Creatinine resolved to baseline on 10/01. Continue antibiotics as noted above. Trend daily BMP and urine output. 5. Elevated transaminases ? AST 209, ALT 185, alk phos 213, T. bili 1.80 on 09/30. No previous history of elevated LFTs. CT abdomen pelvis on admit showed history of cholecystectomy, decreased liver attenuation consistent with steatosis, no other RUQ pathology. Right upper quadrant ultrasound on 09/30 with no abnormalities. Labs improved on 10/01. Seems most consistent with mild ischemic hepatitis. No need to trend further LFTs. 6. Suspected BPH with obstructive symptoms ? No reported history of BPH per patient. However given UTI on admit and heterogenously enlarged prostate on CT on admit, strongly suspect BPH. PSA mildly elevated at 5.03. Will plan to initiate patient on Flomax prior to discharge and patient will need close outpatient urology follow-up as noted above. Chronic medical conditions: ? Recent history of VTE s/p IVC filter placement: Found on CT imaging on 05/21/2023 to have a saddle PE, started on Eliquis and stable for discharge on 05/23. Unfortunately had an upper GI bleed with acute blood loss anemia requiring admission on 05/29-. AC was discontinued and IVC filter was placed on 06/03. ? History of GERD with Ogden's esophagus and recent upper GI bleed: Had upper GI bleed while on Eliquis as noted above. Per Dr. Rose's note on 07/15, patient has intermittent reflux typically related to lifestyle choices, Protonix was reduced from twice daily to daily at that time. Currently stable and asymptomatic. Continue home PPI daily. ? Hypertension: Holding home amlodipine and Lopressor. ? Hyperlipidemia: Intolerant to statins and fenofibrate. Monitor outpatient. ? Hypothyroidism: Stable. Continue home Synthroid. ? History of A-fib s/p radiofrequency ablation: Stable in normal sinus rhythm. ? History of KHANH positive with myalgias: Continue home low-dose prednisone. ? Insomnia: Continue home Benadryl. DVT prophylaxis: SCDs CODE STATUS: Full code, verified Expected disposition: Home, 1 to 2 days Total clinical time spent by myself addressing the patient's medical issues, reviewing all the data, and collaborating with patient's care team: 35 minutes. Charges/Coding Visit Charges Inpatient E&M: 86791 Subs Hosp L2
[2023-10-02] MEDS: 0.9% Saline Lock 10 ML Syringe IV (20:24)
[2023-10-02] MEDS: DiphenhydrAMINE 25 MG Capsule 50 MG PO (20:25)
[2023-10-02] MEDS: Acetaminophen 325 MG Tablet 650 MG PO (20:26)
[2023-10-03 00:28] VITALS: BMI 25.0
[2023-10-03 02:18] VITALS: BP 158/94; PULSE 62; RESP 16; TEMP 36.6; O2SAT 96
[2023-10-03] MEDS: Levothyroxine 88 MCG Tablet PO (06:11)
[2023-10-03 06:14] VITALS: BP 154/95; PULSE 63; RESP 16; TEMP 36.6; O2SAT 93
[2023-10-03 06:23] LABS: Hematocrit 36.2 % (40-54); Hemoglobin 11.8 g/dL (13.0-16.5); Mean Corp Hgb Conc 32.6 g/dL (32-36); Mean Corpuscular Hgb 31.1 pg (27.0-32.0); Mean Corpuscular Volume 95.5 fL (80-94); Mean Platelet Vol. 9.7 fl (6.2-12.0); Platelet Count 208 K/mm3 (150-450); RBC Distribution Width CV 13.1 % (11.6-14.6); RBC Distribution Width SD 45.5 fl (35.1-43.9); Red Blood Count 3.79 M/mm3 (4.6-6.2); White Blood Count 8.2 K/mm3 (4.4-11.0)
[2023-10-03 06:55] LABS: Anion Gap 3 (5-15); BUN 17 mg/dL (7-18); BUN/Creat Ratio 15.6 RATIO (10-20); Calcium,Total 8.1 mg/dL (8.5-10.1); Chloride 114 mmol/L (98-107); Creatinine, Serum 1.09 mg/dL (0.70-1.30); EST Glomerular Filtration Rate 69 mL/min (>60); Est Glom Filt Rate - Afr Amer 84 mL/min (>60); Estimated Creatinine Clearance 56.61 ml/min; Glucose 78 mg/dL (74-106); Potassium 3.7 mmol/L (3.5-5.1); Sodium Level 144 mmol/L (136-145)
[2023-10-03] MEDS: Pantoprazole Sodium 40 MG Tablet PO (07:38)
[2023-10-03] MEDS: Lactobacillis Acidophilus 2 CAP PO (07:39)
[2023-10-03] MEDS: predniSONE 5 MG Tablet PO (07:39)
[2023-10-03] MEDS: Cholecalciferol (VIT D3) 25 MCG TABLET (1,000 UNITS) PO (07:39)
[2023-10-03] MEDS: Aspirin 81 MG TAB.CHEW PO (07:39)
[2023-10-03 07:58] VITALS: BP 168/94; PULSE 60; RESP 16; TEMP 36.4; O2SAT 95
[2023-10-03 08:02] VITALS: O2SAT 97
--- NOTE | 2023-10-03 09:26 | PCM.DC ---
Discharge Instructions Diet Discharge Diet: No restrictions Activity Discharge Activity: No Restrictions Follow Up Care Test Results: Test results from this visit will be discussed in further detail at your follow-up appointment, if applicable. Discharge Plan Admission Admit Date/Time: 09/30/23 16:14 Primary Reason for Your Visit: blood in urine, UTI Attending Provider: Jay Wright Primary Care Provider: Jose Hooks [employer] Providers: Ham Lopez Instructions Additional Instructions / Restrictions: Please take Bactrim as noted below to complete a 7-day course of antibiotics total for your UTI. Please call Dr. Perdomo's office on Thursday to schedule an appointment early next week - He is aware of your case and will make sure you are seen next week. Please hold the Plavix until your appointment with Dr. Perdomo. Discharge Orders/Prescriptions Prescriptions: New sulfamethoxazole-trimethoprim [Bactrim DS] 800-160 mg tablet 1 tab PO BID 4 Days Qty: 7 0RF Continued cholecalciferol (vitamin D3) 25 mcg (1,000 unit) capsule 25 mcg PO DAILY (DME) blood pressure monitor Kit See Rx Instructions .Route Qty: 1 0RF Rx Instructions: As directed metoprolol tartrate 50 mg tablet 50 mg PO BID Qty: 60 11RF amlodipine 2.5 mg Tablet 2.5 mg PO DAILY Qty: 60 6RF levothyroxine 88 mcg tablet 88 mcg PO DAILY prednisone 5 mg tablet 5 mg PO DAILY aspirin [Adult Aspirin Regimen] 81 mg tablet,delayed release (DR/EC) 81 mg PO DAILY Tylenol PM Extra Strength 25-500 mg tablet 2 tab PO QHS pantoprazole 40 mg Tablet,Delayed Release (Dr/Ec) 40 mg PO DAILY Rx Instructions: Twice daily for 2 months and then once daily. Changed acetaminophen [Tylenol Extra Strength] 500 mg tablet 1,000 mg PO Q8H PRN PRN (Reason: fever or pain) 30 Days Qty: 0 0RF Held clopidogrel 75 mg Tablet 75 mg PO DAILY Qty: 30 11RF Hold Instructions: Resume on 10/09/23. Hold until Urology appointment Referrals / Follow Up: Jese Perdomo MD [Med Staff - Active Staff] - Jose Hooks Chi, MD [Primary Care Provider] - Disposition Disposition (needs filled in before D/C Order can be placed): Home, Self Care
--- NOTE | 2023-10-03 09:30 | DS.PCM_ITS ---
Providers Date of Admission: 09/30/23 Date of Discharge: 10/03/23 Primary Care Physician: Dr. Jose Hooks MD Reason For Visit: GROSS HEMATURIA WITH BLADDER MASS AND UTI Diagnosis Discharge Diagnosis (1) Sepsis: Status: Resolved Code(s): A41.9 - Sepsis, unspecified organism Qualifiers: Acute renal failure type: unspecified Sepsis acute organ dysfunction status: with acute organ dysfunction Sepsis type: Pneumococcus Severe sepsis acute organ dysfunction type: acute renal failure Severe sepsis shock status: without septic shock Qualified Code(s): A40.3 - Sepsis due to Streptococcus pneumoniae; R65.20 - Severe sepsis without septic shock; N17.9 - Acute kidney failure, unspecified (2) UTI (urinary tract infection): Status: Acute Code(s): N39.0 - Urinary tract infection, site not specified (3) Bladder mass: Status: Acute Code(s): N32.89 - Other specified disorders of bladder (4) BART (acute kidney injury): Status: Resolved Code(s): N17.9 - Acute kidney failure, unspecified (5) Gross hematuria: Status: Acute Code(s): R31.0 - Gross hematuria Medications at Discharge Home Medications cholecalciferol (vitamin D3) 25 mcg (1,000 unit) capsule 25 mcg PO DAILY SUPPLEMENT 12/25/21 amlodipine 2.5 mg tablet 2.5 mg PO DAILY BLOOD PRESSURE #60 tabs 01/05/23 clopidogrel 75 mg tablet 75 mg PO DAILY BLOOD THINNER #30 tabs 01/05/23 blood pressure monitor #1 ea 01/15/23 metoprolol tartrate 50 mg tablet 50 mg PO BID BLOOD PRESSURE #60 tabs 02/24/23 levothyroxine 88 mcg tablet 88 mcg PO DAILY THYROID 05/29/23 aspirin 81 mg tablet,delayed release (Adult Aspirin Regimen) 81 mg PO DAILY 09/30/23 diphenhydramine 25 mg-acetaminophen 500 mg tablet (Tylenol PM Extra Strength) 2 tab PO QHS 09/30/23 pantoprazole 40 mg tablet,delayed release 40 mg PO DAILY ACID REFUX 09/30/23 prednisone 5 mg tablet 5 mg PO DAILY 09/30/23 acetaminophen 500 mg tablet (Tylenol Extra Strength) 1,000 mg (2 x 500 mg) PO Q8H PRN PRN fever or pain 30 days #0 tabs 10/03/23 sulfamethoxazole 800 mg-trimethoprim 160 mg tablet (Bactrim DS) 1 tab PO BID 4 days #7 tabs 10/03/23 Hospital Course Operations None Procedures - (CT abdomen pelvis with and without contrast, abdominal ultrasound) Summary of Care Provided Minutes Spent on Discharge: 35 Hospital Course: Patient is an 83-year-old male who presented to [facility] ED on 09/30/2023 with gross hematuria. Hospital course as noted below. Patient discharged home with no therapy needs in stable condition on 10/02. 1. Sepsis secondary to E. coli UTI, improved Initially admitted to [facility], not septic on admission. However, met sepsis criteria on hospital day 2 with worsening leukocytosis, new BART, hypotension, elevated lactate in setting of UTI. Given high concern for gram-negative sepsis, transferred to ICU on 09/30. BP responsive to 30 cc/kg IV fluid bolus. Urine culture grew > 100K pansensitive E. coli. Blood cultures negative at 48 hours. Treated with IV ceftriaxone 2 g every 24 hours and patient did very well with this. Did not require any pressors and was stable for transfer out of the ICU on 10/01. ? Patient remained stable on day of discharge. Discharged on Bactrim DS twice daily Patient doing very well, has not needed pressors. Stable for transfer out of ICU on 10/01. Continue IV ceftriaxone for now. If remains stable tomorrow, will likely plan for discharge home on p.o. antibiotics to complete a 7-day course of antibiotics total. 2. Gross hematuria, mild acute blood loss anemia See subjective above for further details. CT abdomen pelvis on admit showed diffuse bladder wall thickening with a 1.5 cm x 1.4 cm polypoid lesion at the base of the bladder. Suspected that hematuria is multifactorial due to bladder lesion with UTI while on aspirin and Plavix dual therapy. Had traumatic Andrews placement in the ED suspected due to BPH, likely also factoring in. Andrews removed in ED due to patient discomfort. ? Hemoglobin 13.9 on admit, at baseline. Repeat hemoglobin 12.2 on morning of 09/30, with recheck 11.8 on afternoon of 09/30. Aspirin Plavix held on admission. Hemoglobin remained stable on 10/01. Restarted home aspirin on morning of 10/01. Will monitor closely for worsening hematuria and follow-up hemoglobin tomorrow morning. If remains stable, likely okay for discharge home tomorrow. Planning to hold Plavix until patient sees urology in the office next Thursday or Thursday for suspected cystoscopy with biopsy. 3. History of CAD s/p CABG and recent stenting ? Follows with [facility]. Most recent stenting was done in December 2022. On home aspirin and Plavix. Aspirin and Plavix both held on admit, restarted aspirin on 10/01. Will continue to hold Plavix for suspected urology procedure next week. Has outpatient follow-up with cardiology scheduled for 10/13. 4. BART on CKD stage III, resolved ? Creatinine 1.36 on admit, appeared to be at baseline creatinine around 1.1- 1.4. Worsened to creatinine 1.88 on 09/30, suspected due to sepsis as noted shawna mcneil. Creatinine resolved to baseline on 10/01. Continue antibiotics as noted above. Trend daily BMP and urine output. 5. Elevated transaminases ? AST 209, ALT 185, alk phos 213, T. bili 1.80 on 09/30. No previous history of elevated LFTs. CT abdomen pelvis on admit showed history of cholecystectomy, decreased liver attenuation consistent with steatosis, no other RUQ pathology. Right upper quadrant ultrasound on 09/30 with no abnormalities. Labs improved on 10/01. Seems most consistent with mild ischemic hepatitis. No need to trend further LFTs. 6. Suspected BPH with obstructive symptoms ? No reported history of BPH per patient. However given UTI on admit and heterogenously enlarged prostate on CT on admit, strongly suspect BPH. PSA mildly elevated at 5.03. Will plan to initiate patient on Flomax prior to discharge and patient will need close outpatient urology follow-up as noted ab akhtar. Chronic medical conditions: ? Recent history of VTE s/p IVC filter placement: Found on CT imaging on 05/21/2023 to have a saddle PE, started on Eliquis and stable for discharge on 05/23. Unfortunately had an upper GI bleed with acute blood loss anemia requiring admission on 05/29-. AC was discontinued and IVC filter was placed on 06/03. ? History of GERD with Ogden's esophagus and recent upper GI bleed: Had upper GI bleed while on Eliquis as noted above. Per Dr. Rose's note on 07/15, patient has intermittent reflux typically related to lifestyle choices, Protonix was reduced from twice daily to daily at that time. Currently stable and asymptomatic. Continue home PPI daily. ? Hypertension: Holding home amlodipine and Lopressor. ? Hyperlipidemia: Intolerant to statins and fenofibrate. Monitor outpatient. ? Hypothyroidism: Stable. Continue home Synthroid. ? History of A-fib s/p radiofrequency ablation: Stable in normal sinus rhythm. ? History of KHANH positive with myalgias: Continue home low-dose prednisone. ? Insomnia: Continue home Benadryl. DVT prophylaxis: SCDs CODE STATUS: Full code, verified Expected disposition: Home, 1 to 2 days Total clinical time spent by myself addressing the patient's medical issues, reviewing all the data, and collaborating with patient's care team: 35 minutes. Weight / BMI Weight Weight: 81.5 kg Body Mass Index (BMI) 25.0 ABG / Lab / Microbiology Data 10/03/23 06:12 10/03/23 06:12 Laboratory: Laboratory Results - last 24 hr 10/03/23 06:12: WBC 8.2, RBC 3.79 L, Hgb 11.8 L, Hct 36.2 L, MCV 95.5 H, MCH 31.1, MCHC 32.6, RDW Std Deviation 45.5 H, RDW Coeff of Sukumar 13.1, Plt Count 208, MPV 9.7, Sodium 144, Potassium 3.7, Chloride 114 H, Carbon Dioxide 27.0, Anion Gap 3 L, BUN 17, Creatinine 1.09, Estim Creat Clear Calc 56.61, Est GFR (MDRD) Af Amer 84, Est GFR (MDRD) Non-Af 69, BUN/Creatinine Ratio 15.6, Glucose 78, Calcium 8.1 L Microbiology: Microbiology 09/30/23 10:05 Urine, Clean Catch Urine Culture - Final Escherichia coli D/C Instructions Discharge Diet: No restrictions Meaningful Use Info Ischemic Stroke Statin Dosing Therapy Reference: STATIN DOSE THERAPY REFERENCE: * Patients > 75 years receive moderate or high dose statin therapy. * Patients 75 years or YOUNGER should receive HIGH intensity statin dose unless contraindicated. You will be required to document reason for non-treatment if statin daily dose does not meet guidelines. HIGH DOSE STATIN THERAPY DAILY Atorvastatin > than or = to 40 mg Rosuvastatin > than or = to 20 mg Amlodipine + Atorvastatin > than or = to 2.5/40 mg Ezetimibe + Simvastatin 10/80 mg Simvastatin 80mg Discharge Plan Admission Admit Date/Time: 09/30/23 16:14 Primary Reason for Your Visit: blood in urine, UTI Attending Provider: Jay Wright Primary Care Provider: Jose Hooks [employer] Providers: Ham Lopez Instructions Additional Instructions / Restrictions: Please take Bactrim as noted below to complete a 7-day course of antibiotics total for your UTI. Please call Dr. ePrdomo's office on Thursday to schedule an appointment early next week - He is aware of your case and will make sure you are seen next week. Please hold the Plavix until your appointment with Dr. Perdomo. Discharge Orders/Prescriptions Prescriptions: New sulfamethoxazole-trimethoprim [Bactrim DS] 800-160 mg tablet 1 tab PO BID 4 Days Qty: 7 0RF Continued cholecalciferol (vitamin D3) 25 mcg (1,000 unit) capsule 25 mcg PO DAILY (DME) blood pressure monitor Kit See Rx Instructions .Route Qty: 1 0RF Rx Instructions: As directed metoprolol tartrate 50 mg tablet 50 mg PO BID Qty: 60 11RF amlodipine 2.5 mg Tablet 2.5 mg PO DAILY Qty: 60 6RF levothyroxine 88 mcg tablet 88 mcg PO DAILY prednisone 5 mg tablet 5 mg PO DAILY aspirin [Adult Aspirin Regimen] 81 mg tablet,delayed release (DR/EC) 81 mg PO DAILY Tylenol PM Extra Strength 25-500 mg tablet 2 tab PO QHS pantoprazole 40 mg Tablet,Delayed Release (Dr/Ec) 40 mg PO DAILY Rx Instructions: Twice daily for 2 months and then once daily. Changed acetaminophen [Tylenol Extra Strength] 500 mg tablet 1,000 mg PO Q8H PRN PRN (Reason: fever or pain) 30 Days Qty: 0 0RF Held clopidogrel 75 mg Tablet 75 mg PO DAILY Qty: 30 11RF Hold Instructions: Resume on 10/09/23. Hold until Urology appointment Referrals / Follow Up: Jese Perdomo MD [Med Staff - Active Staff] - Jose Hooks Chi, MD [Primary Care Provider] - Disposition Disposition (needs filled in before D/C Order can be placed): Home, Self Care
[2023-10-03] MEDS: 0.9% Saline Lock 10 ML Syringe IV (09:49)
[2023-10-03] MEDS: Ceftriaxone 2 GM in 0.9% Normal Saline (50mL MB+) 50 ML IV (09:49)
--- NOTE | 2023-10-03 10:50 | DS.PCM_ITS ---
Providers Date of Admission: 09/30/23 Date of Discharge: 10/03/23 Primary Care Physician: Dr. Jose Hooks MD Reason For Visit: GROSS HEMATURIA WITH BLADDER MASS AND UTI Diagnosis Discharge Diagnosis (1) Sepsis: Status: Resolved Code(s): A41.9 - Sepsis, unspecified organism Qualifiers: Sepsis type: Pneumococcus Sepsis acute organ dysfunction status: with acute organ dysfunction Severe sepsis acute organ dysfunction type: acute renal failure Acute renal failure type: unspecified Severe sepsis shock status: without septic shock Qualified Code(s): A40.3 - Sepsis due to Streptococcus pneumoniae; R65.20 - Severe sepsis without septic shock; N17.9 - Acute kidney failure, unspecified (2) UTI (urinary tract infection): Status: Acute Code(s): N39.0 - Urinary tract infection, site not specified (3) Bladder mass: Status: Acute Code(s): N32.89 - Other specified disorders of bladder (4) BART (acute kidney injury): Status: Resolved Code(s): N17.9 - Acute kidney failure, unspecified (5) Gross hematuria: Status: Acute Code(s): R31.0 - Gross hematuria Medications at Discharge Home Medications cholecalciferol (vitamin D3) 25 mcg (1,000 unit) capsule 25 mcg PO DAILY SUPPLEMENT 12/25/21 amlodipine 2.5 mg tablet 2.5 mg PO DAILY BLOOD PRESSURE #60 tabs 01/05/23 clopidogrel 75 mg tablet 75 mg PO DAILY BLOOD THINNER #30 tabs 01/05/23 blood pressure monitor #1 ea 01/15/23 metoprolol tartrate 50 mg tablet 50 mg PO BID BLOOD PRESSURE #60 tabs 02/24/23 levothyroxine 88 mcg tablet 88 mcg PO DAILY THYROID 05/29/23 aspirin 81 mg tablet,delayed release (Adult Aspirin Regimen) 81 mg PO DAILY 09/30/23 diphenhydramine 25 mg-acetaminophen 500 mg tablet (Tylenol PM Extra Strength) 2 tab PO QHS 09/30/23 pantoprazole 40 mg tablet,delayed release 40 mg PO DAILY ACID REFUX 09/30/23 prednisone 5 mg tablet 5 mg PO DAILY 09/30/23 acetaminophen 500 mg tablet (Tylenol Extra Strength) 1,000 mg (2 x 500 mg) PO Q8H PRN PRN fever or pain 30 days #0 tabs 10/03/23 sulfamethoxazole 800 mg-trimethoprim 160 mg tablet (Bactrim DS) 1 tab PO BID 4 days #7 tabs 10/03/23 Hospital Course Operations None Procedures - (CT abdomen pelvis with and without contrast, abdominal ultrasound) Summary of Care Provided Minutes Spent on Discharge: 35 Hospital Course: Patient is an 83-year-old male who presented to [facility] ED on 09/30/2023 with gross hematuria. Hospital course as noted below. Patient discharged home with no therapy needs in stable condition on 10/02. 1. Sepsis secondary to E. coli UTI, improving Initially admitted to [facility], not septic on admission. However, that sepsis criteria on hospital day 2 with worsening leukocytosis, new BART, hypotension, elevated lactate in setting of UTI. Given high concern for gram-negative sepsis, transferred to ICU on 09/30. BP responsive to 30 cc/kg IV fluid bolus. Urine culture grew > 100K pansensitive E. coli. Blood cultures negative at 48 hours. Treated with IV ceftriaxone and patient did very well, never required pressors. Stable for transfer out of the ICU on 10/01. ? Discharged on Bactrim DS twice daily to complete 7 day course of antibiotics total, stop date 10/05. 2. Gross hematuria, resolved; bladder mass; mild acute blood loss anemia, stable CT abdomen pelvis on admit showed diffuse bladder wall thickening with a 1.5 cm x 1.4 cm polypoid lesion at the base of the bladder. Suspected that hematuria was multifactorial due to bladder lesion with UTI while on aspirin and Plavix dual therapy. Had traumatic Andrews placement in the ED suspected due to BPH, likely also factoring in. Andrews removed in ED due to patient discomfort. Hemoglobin was 13.9 on admit, at baseline. Hemoglobin dropped slightly during hospitalization with juan carlos of 11.3, stable at 11.8 on day of discharge. ? Home baby aspirin and Plavix held on admission. However given recent stent placement as noted below, restarted home aspirin on morning of 10/01. Patient had no worsening of hematuria and hemoglobin remained stable on aspirin. Briefly discussed with Dr. Perdomo and will plan to have patient follow-up in the office there by early to mid next week with likely plan for cystoscopy with biopsy of bladder mass. Will hold Plavix until that appointment. 3. History of CAD s/p CABG and recent stenting ? Follows with [facility]. Most recent stenting was done in December 2022. On home aspirin and Plavix. Aspirin and Plavix both held on admit, restarted aspirin on 10/01. Will continue to hold Plavix for suspected urology procedure next week. Has outpatient follow-up with cardiology scheduled for . 4. BART on CKD stage III, resolved ? Creatinine 1.36 on admit, appeared to be at baseline creatinine around 1.1- 1.4. Worsened to creatinine 1.88 on 09/30, suspected due to sepsis as noted above. Creatinine resolved to baseline on 10/01. Continue antibiotics as noted above. Trend daily BMP and urine output. 5. Elevated transaminases, improving ? AST 209, ALT 185, alk phos 213, T. bili 1.80 on 09/30. No previous history of elevated LFTs. CT abdomen pelvis on admit showed history of cholecystectomy, decreased liver attenuation consistent with steatosis, no other RUQ pathology. Right upper quadrant ultrasound on 09/30 with no abnormalities. Labs improved on 10/01. Seems most consistent with mild ischemic hepatitis. No need to trend further LFTs. 6. Suspected BPH without obstructive symptoms ? No reported history of BPH or obstructive symptoms per patient. However given UTI on admit and heterogenously enlarged prostate on CT on admit, strongly suspect BPH. PSA mildly elevated at 5.03. Patient had good urine output and no difficulty with urination during hospitalization, thus decided not to start Flomax on discharge. Chronic medical conditions: ? Recent history of VTE s/p IVC filter placement: Found on CT imaging on 05/21/2023 to have a saddle PE, started on Eliquis and stable for discharge on 05/23. Unfortunately had an upper GI bleed with acute blood loss anemia requ iring admission on . AC was discontinued and IVC filter was placed on 06/03. ? History of GERD with Ogden's esophagus and recent upper GI bleed: Had upper GI bleed while on Eliquis as noted above. Per Dr. Rose's note on 07/15, patient has intermittent reflux typically related to lifestyle choices, Protonix was reduced from twice daily to daily at that time. Currently stable and asymptomatic. Continue home PPI daily. ? Hypertension: Home Lopressor and amlodipine held during hospitalization. Became hypertensive to 150s on day of discharge which is likely his baseline, okay to resume home meds on discharge. ? Hyperlipidemia: Intolerant to statins and fenofibrate. Monitor outpatient. ? Hypothyroidism: Stable. Continue home Synthroid. ? History of A-fib s/p radiofrequency ablation: Stable in normal sinus rhythm. ? History of KHANH positive with myalgias: Continue home low-dose prednisone. ? Insomnia: Continue home Benadryl. Total clinical time spent by myself addressing the patient's medical issues, reviewing all the data, and collaborating with patient's care team: 35 minutes. Physical Exam Const alert, oriented x3, no apparent distress and average body habitus Constitutional Narrative: Pleasant elderly male, sitting up comfortably in bedside chair, conversing normally, no acute distress. General Appearance: cooperative and comfortable HEENT normocephalic, head/scalp atraumatic, hearing grossly normal bilaterally and nasal mucous membranes and turbinates normal Eyes PERRL, EOMs intact bilaterally and conjunctivae normal Neck full ROM Chest inspection of chest normal Resp normal respiratory effort, normal air movement, no use of accessory muscles and clear to auscultation bilaterally Cardio regular rate, regular rhythm, no murmurs and peripheral pulses 2+ throughout GI normal to inspection, nondistended, normoactive bowel sounds, soft to palpation, non-tender and non-distended Negative for no CVA tenderness Bladder / Kidney Exam: No catheter in place and bladder normal to palpation Back/Spine normal ROM Extremity normal to inspection, full ROM and no pedal edema Skin no rashes or lesions noted Neuro moves all extremities and no focal motor deficits Speech: speech normal Psych mental status grossly normal Weight / BMI Weight Weight: 81.5 kg Body Mass Index (BMI) 25.0 ABG / Lab / Microbiology Data 10/03/23 06:12 10/03/23 06:12 Laboratory: Laboratory Results - last 24 hr 10/03/23 06:12: WBC 8.2, RBC 3.79 L, Hgb 11.8 L, Hct 36.2 L, MCV 95.5 H, MCH 31.1, MCHC 32.6, RDW Std Deviation 45.5 H, RDW Coeff of Sukumar 13.1, Plt Count 208, MPV 9.7, Sodium 144, Potassium 3.7, Chloride 114 H, Carbon Dioxide 27.0, Anion Gap 3 L, BUN 17, Creatinine 1.09, Estim Creat Clear Calc 56.61, Est GFR (MDRD) Af Amer 84, Est GFR (MDRD) Non-Af 69, BUN/Creatinine Ratio 15.6, Glucose 78, Calcium 8.1 L Microbiology: Microbiology 09/30/23 10:05 Urine, Clean Catch Urine Culture - Final Escherichia coli D/C Instructions Discharge Diet: No restrictions Meaningful Use Info Meaningful Use Meaningful Use Diagnoses (Choose all that apply): None applicable Ischemic Stroke Statin Dosing Therapy Reference: STATIN DOSE THERAPY REFERENCE: * Patients > 75 years receive moderate or high dose statin therapy. * Patients 75 years or YOUNGER should receive HIGH intensity statin dose unless contraindicated. You will be required to document reason for non-treatment if statin daily dose does not meet guidelines. HIGH DOSE STATIN THERAPY DAILY Atorvastatin > than or = to 40 mg Rosuvastatin > than or = to 20 mg Amlodipine + Atorvastatin > than or = to 2.5/40 mg Ezetimibe + Simvastatin 10/80 mg Simvastatin 80mg Discharge Plan Admission Admit Date/Time: 09/30/23 16:14 Primary Reason for Your Visit: blood in urine, UTI Attending Provider: Jay Wright Primary Care Provider: Jose Hooks [employer] Providers: Ham Lopez Instructions Additional Instructions / Restrictions: Please take Bactrim as noted below to complete a 7-day course of antibiotics total for your UTI. Please call Dr. Perdomo's office on Thursday to schedule an appointment early next week - He is aware of your case and will make sure you are seen next week. Please hold the Plavix until your appointment with Dr. Perdomo. Discharge Orders/Prescriptions Prescriptions: New sulfamethoxazole-trimethoprim [Bactrim DS] 800-160 mg tablet 1 tab PO BID 4 Days Qty: 7 0RF Continued cholecalciferol (vitamin D3) 25 mcg (1,000 unit) capsule 25 mcg PO DAILY (DME) blood pressure monitor Kit See Rx Instructions .Route Qty: 1 0RF Rx Instructions: As directed metoprolol tartrate 50 mg tablet 50 mg PO BID Qty: 60 11RF amlodipine 2.5 mg Tablet 2.5 mg PO DAILY Qty: 60 6RF levothyroxine 88 mcg tablet 88 mcg PO DAILY prednisone 5 mg tablet 5 mg PO DAILY aspirin [Adult Aspirin Regimen] 81 mg tablet,delayed release (DR/EC) 81 mg PO DAILY Tylenol PM Extra Strength 25-500 mg tablet 2 tab PO QHS pantoprazole 40 mg Tablet,Delayed Release (Dr/Ec) 40 mg PO DAILY Rx Instructions: Twice daily for 2 months and then once daily. Changed acetaminophen [Tylenol Extra Strength] 500 mg tablet 1,000 mg PO Q8H PRN PRN (Reason: fever or pain) 30 Days Qty: 0 0RF Held clopidogrel 75 mg Tablet 75 mg PO DAILY Qty: 30 11RF Hold Instructions: Resume on 10/09/23. Hold until Urology appointment Referrals / Follow Up: Jese Perdomo MD [Med Staff - Active Staff] - Jose Hooks Chi, MD [Primary Care Provider] - Disposition Disposition (needs filled in before D/C Order can be placed): Home, Self Care Charges/Coding Visit Charges Inpatient E&M: 87878 Disch Hosp >30min
== END 2023-10-03 10:45 | disposition home or self-care (01) | DRG 690 ==
LOC: ED 15:54 → MS3 16:26 → ICU 10-01 09:55 → MS3 10-02 15:28
PROVIDERS: Admitting Provider Internal Medicine; Emergency Provider Emergency Medicine; PCP Family Medicine Geriatric Medicine; Visit Provider Hospitalist
DX: N30.01 Acute cystitis with hematuria (principal); D62 Acute posthemorrhagic anemia; N17.9 Acute kidney failure, unspecified; N18.30 Chronic kidney disease, stage 3 unspecified; E03.9 Hypothyroidism, unspecified; I12.9 Hypertensive chronic kidney disease with stage 1 through stage 4 chronic kidney disease, or unspecified chronic kidney disease; K21.9 Gastro-esophageal reflux disease without esophagitis; I25.10 Atherosclerotic heart disease of native coronary artery without angina pectoris; E78.5 Hyperlipidemia, unspecified; M79.7 Fibromyalgia; Z79.82 Long term (current) use of aspirin; Z79.02 Long term (current) use of antithrombotics/antiplatelets; T39.015A Adverse effect of aspirin, initial encounter; N28.1 Cyst of kidney, acquired; N32.9 Bladder disorder, unspecified; Z95.5 Presence of coronary angioplasty implant and graft; N28.89 Other specified disorders of kidney and ureter; G47.00 Insomnia, unspecified; Z79.899 Other long term (current) drug therapy; Z79.890 Hormone replacement therapy; T45.525A Adverse effect of antithrombotic drugs, initial encounter; N40.1 Benign prostatic hyperplasia with lower urinary tract symptoms
CPT/HCPCS: 36415; 51702; 74178; 76705; 80048; 80053; 80076; 81001; 83605; 83735; 84100; 84153; 85025; 85027; 87040; 87086; 87088; 87186; 94668; 97161; 99285; Q9967; A4216; G0103; J0696; J2405

== ENCOUNTER → 2023-10-06 | Outpatient (CLI) | payer MEDICARE, SELFPAY ==
[2023-04-13 08:14] VITALS: BMI 24.3
[2023-10-06 13:26] LABS: Absolute Lymphocyte Count 1.41 X10^3/uL (0.83-4.51); Absolute Neutrophil Count 5.6 X10^3/uL (2.0-7.7); Basophil# 0.08 X10^3/uL; Eosinophil# 0.16 X10^3/uL; Hematocrit 43.9 % (40-54); Hemoglobin 14.1 g/dL (13.0-16.5); Lymphocyte # 1.41 X10^3/ul (0.83-4.51); Lymphocyte % 17.4 % (19-41); Mean Corp Hgb Conc 32.1 g/dL (32-36); Mean Corpuscular Hgb 30.1 pg (27.0-32.0); Mean Corpuscular Volume 93.8 fL (80-94); Mean Platelet Vol. 9.8 fl (6.2-12.0); Monocyte# 0.69 X10^3/uL; Monocyte% 8.5 % (0-10); NRBC Flagged by Analyzer 0 % (0-5); Neutrophil # 5.58 X10^3/uL (2.7-7.7); Neutrophil % 68.6 % (47-70); Platelet Count 316 K/mm3 (150-450); RBC Distribution Width SD 44.3 fl (35.1-43.9); Red Blood Count 4.68 M/mm3 (4.6-6.2); White Blood Count 8.1 K/mm3 (4.4-11.0)
[2023-10-06 13:56] LABS: Anion Gap 5 (5-15); BUN 23 mg/dL (7-18); BUN/Creat Ratio 17.7 RATIO (10-20); Calcium,Total 8.9 mg/dL (8.5-10.1); Chloride 107 mmol/L (98-107); EST Glomerular Filtration Rate 56 mL/min (>60); Est Glom Filt Rate - Afr Amer 68 mL/min (>60); Glucose 92 mg/dL (74-106); Potassium 3.8 mmol/L (3.5-5.1); Sodium Level 139 mmol/L (136-145)
== END | disposition home or self-care (01) ==
PROVIDERS: PCP Family Medicine Geriatric Medicine; Referring Provider Family Medicine Geriatric Medicine; Visit Provider Family Medicine Geriatric Medicine
DX: N17.9 Acute kidney failure, unspecified (principal); R30.0 Dysuria; R31.9 Hematuria, unspecified
CPT/HCPCS: 36415; 80048; 85025; 87086

== ENCOUNTER → 2023-10-14 | Outpatient (CLI) | payer MEDICARE, SELFPAY ==
[2023-04-13 08:14] VITALS: BMI 24.3
[2023-10-14 16:54] LABS: Thyroid Stim Hormone (TSH) 2.07 uIU/mL (0.358-3.74)
== END | disposition home or self-care (01) ==
LOC: LAB 14:55
PROVIDERS: PCP Family Medicine Geriatric Medicine; Referring Provider Nurse Practitioner Gerontology; Visit Provider Nurse Practitioner Gerontology
DX: R53.83 Other fatigue (principal)
CPT/HCPCS: 36415; 84443

== ENCOUNTER 2023-10-21 08:44 | Day surgery (SDC) | payer MEDICARE, SELFPAY ==
[2023-04-13 08:14] VITALS: BMI 24.3
[2023-10-21] VITALS (14 sets, daily range): BP systolic 122–162; BP diastolic 77–91; PULSE 53–65; RESP 12–18; TEMP 35.9–36.7; O2SAT 89–98; BMI 23.3
[2023-10-21] MEDS: Lactated Ringers 1,000 ML 15 ML IV (09:15)
--- NOTE | 2023-10-21 11:20 | PROS_PTH ---
PATIENT: KULWANT ANDRADE LOC: [facility] [place] U#:[id number] AGE/SX: 83/M ROOM: RE10/21/[address]: Dr. Jese Perdomo MD : [id number] BED: DIS: 10/22/2023 SPEC #: [id number] RECD: 10/21/23 12:45 STATUS: JOURDAN RELokesh #: [id number] ARIEL: 10/21/23 11:[address]: Jese Perdomo DEPT: SURGICAL PATHOLOGY RECD BY: Christopher Mix ENTERED: 10/21/23 13:51 SP TYPE: TURP OTHR DR: Dr. Jose Hooks MD Tissues: Prostate, NOS Procedures: Surgery Specimen Level IV HEADER OPERATION: Transurethral resection of bladder tumor with Mitomycin PRE-OP DIAGNOSIS: Bladder tumor TISSUE SUBMITTED: Tissue from prostate and bladder MICROSCOPIC DIAGNOSIS Urinary bladder, transurethral resection: Urothelium with focal benign hyperplasia, acute and chronic inflammation and dystrophic microcalcifications. Prostatic tissue with no pathologic change. / 10/22/2023 MICROSCOPIC DESCRIPTION Slides are reviewed. GROSS DESCRIPTION Received is one container labeled with the patient's name and designated prostate and bladder tissue. The specimen consists of multiple irregular fragments of pink-tovar, rubbery, soft tissue that in aggregate weigh 2.3 gm and measure in aggregate 5.0 x 3.0 x 0.2 cm. The entire specimen is submitted in two cassettes. / 10/21/23 TC:2 CPT: 16622
[2023-10-21] MEDS: Cefazolin 2 GM in 0.9% Normal Saline (100mL Bag) 100 ML IV (11:36)
--- NOTE | 2023-10-21 12:18 | PCM.DC ---
Discharge Instructions Diet Discharge Diet: No restrictions Activity Discharge Activity: Return to Normal Activity and May Not Drive (while taking narcotic pain medications.) Dressing / Incision Call your doctor if you observe: Fever of 101 or Higher Follow Up Care Please Follow Up With: Jese Perdomo MD When: Call [phone] for an appointment Test Results: Test results from this visit will be discussed in further detail at your follow-up appointment, if applicable. Discharge Plan Admission Primary Reason for Your Visit: Resection of prostate nodule Attending Provider: Jese Perdomo Primary Care Provider: Jose Hooks Chi Instructions Print Language: Prydeinig Discharge Orders/Prescriptions Prescriptions: New sulfamethoxazole-trimethoprim [Bactrim] 400-80 mg tablet 1 tab PO BID Qty: 10 0RF Continued cholecalciferol (vitamin D3) 25 mcg (1,000 unit) capsule 25 mcg PO DAILY (DME) blood pressure monitor Kit See Rx Instructions .Route Qty: 1 0RF Rx Instructions: As directed metoprolol tartrate 50 mg tablet 50 mg PO BID Qty: 60 11RF amlodipine 2.5 mg Tablet 2.5 mg PO DAILY Qty: 60 6RF levothyroxine 88 mcg tablet 88 mcg PO DAILY prednisone 5 mg tablet 5 mg PO DAILY aspirin [Adult Aspirin Regimen] 81 mg tablet,delayed release (DR/EC) 81 mg PO DAILY Tylenol PM Extra Strength 25-500 mg tablet 2 tab PO QHS pantoprazole 40 mg Tablet,Delayed Release (Dr/Ec) 40 mg PO DAILY Rx Instructions: Twice daily for 2 months and then once daily. Held clopidogrel 75 mg Tablet 75 mg PO DAILY Qty: 30 11RF Hold Instructions: Resume on 11/04/23. Referrals / Follow Up: Jose Hooks Chi, MD [Primary Care Provider] - Disposition Disposition (needs filled in before D/C Order can be placed): Home, Self Care
--- NOTE | 2023-10-21 12:18 | PCM.OPRPT ---
Report of Operation Date of Procedure: 10/21/23 Pre-Operative Diagnosis: BPH with prostate nodule Post-Operative Diagnosis: The same Surgery/Procedure Performed:: Transurethral section of prostate Description of Surgical Findings:: Indication is an 83-year-old male CT scan was done that demonstrated nodule at the base of the bladder suspicious for a bladder tumor spoke to the patient in preop setting discussed the could be either tumor in the bladder or could be prostate nodule organ to proceed with resection of this tumor or nodule. Patient was taken back to the operating room at this with induction of anesthesia he was placed in dorsolithotomy position went in the bladder with a 24 Chilean continuous-flow resectoscope and inspection of the bladder there is no papillary tumors in the bladder there was a large median lobe coming from the base of the bladder I then resected his median lobe because it was causing obstruction and then I carefully resected back to the verumontanum and then I used button loop to shave the resection nice and open I did a flow test had a wide open flow got all the chips out these were sent off for specimen they look like prostate tissue and then put a 22 Chilean catheter in the bladder for continuous irrigation we will keep him overnight for irrigation and with a cath catheter tomorrow morning for voiding trial. Surgeon: Jese Perdomo Type of Anesthesia: General Drains: 22fr [address] way Admit VTE Documentation VTE Present on Admission: No VTE Mechan Device Prophylaxis: SCD's VTE Pharm Prophylaxis ordered?: No
--- NOTE | 2023-10-21 13:10 | EKG12_ITS ---
Test Reason : Blood Pressure : / mmHG Vent. Rate : 058 BPM Atrial Rate : 058 BPM P-R Int : 248 ms QRS Dur : 080 ms QT Int : 464 ms P-R-T Axes : 054 -31 034 degrees QTc Int : 455 ms Sinus bradycardia with 1st degree A-V block with occasional and consecutive Premature ventricular com plexes Left axis deviation Low voltage QRS Inferior infarct , age undetermined Abnormal ECG When compared with ECG of 21-OCT-2023 12:57, MANUAL COMPARISON REQUIRED, DATA IS UNCONFIRMED Confirmed by Gregorio Salguero ([id number]), supervising editor trailer ERICK ROSSI ([id number]) on 10/22/2023 2:22:20 PM Referred By: Jese Perdomo Confirmed By:Gregorio Salguero
[2023-10-21 13:20] LABS: Troponin-I HS 4 pg/mL (3.0-78.0)
[2023-10-21] MEDS: oxyCODONE 5 MG Tablet PO (14:23)
--- NOTE | 2023-10-21 14:47 | SUR.PHASEII ---
PATIENT VOMITED X1 GREEN LIQUID. FEELS BETTER AFTER.
[2023-10-21] MEDS: 0.9% Normal Saline (1000mL) 1,000 ML 125 ML IV ×2 (14:56→22:31)
[2023-10-21] MEDS: DiphenhydrAMINE 25 MG Capsule 50 MG PO (20:04)
[2023-10-21] MEDS: Docusate Sodium 100 MG Capsule 200 MG PO (20:04)
[2023-10-21] MEDS: Metoprolol Tartrate 50 MG Tablet PO (20:05)
[2023-10-21] MEDS: Acetaminophen 500 MG Tablet 1000 MG PO (20:05)
[2023-10-21] MEDS: DEXTROSE 5% IV (22:26)
[2023-10-21] MEDS: SMZ IV (22:26)
[2023-10-21] MEDS: WATER IV (22:26)
[2023-10-21] MEDS: TMP IV (22:26)
[2023-10-22 03:00] VITALS: BP 115/70; PULSE 64; RESP 16; TEMP 37; O2SAT 96
[2023-10-22] MEDS: 0.9% Normal Saline (1000mL) 1,000 ML 125 ML IV (05:07)
[2023-10-22] MEDS: Levothyroxine 88 MCG Tablet PO (05:08)
--- NOTE | 2023-10-22 07:25 | PCM.PN.BLA ---
Progress Note Status post resection of median lobe and prostate, will DC Andrews today and patient can go home after urinate
[2023-10-22 08:24] VITALS: BP 119/69; PULSE 55; RESP 18; TEMP 36.9; O2SAT 95
[2023-10-22] MEDS: Docusate Sodium 100 MG Capsule 200 MG PO (08:35)
[2023-10-22] MEDS: amLODIPine 2.5 MG Tablet PO (08:35)
[2023-10-22] MEDS: Aspirin E.C. 81 MG Tablet PO (08:36)
[2023-10-22] MEDS: Pantoprazole Sodium 40 MG Tablet PO (08:36)
[2023-10-22] MEDS: predniSONE 5 MG Tablet PO (08:36)
[2023-10-22 08:37] VITALS: PULSE 55
--- NOTE | 2023-10-22 08:45 | CASEMGMT ---
SHENA CM into pt room, pt sitting up in bed eating breakfast in no distress. Pt reports he is I in ADL's and does not use a device for ambulation. Pt denies any homegoing needs. Pt states he will feel better once home.
[2023-10-22 09:17] VITALS: O2SAT 96
[2023-10-22] MEDS: DEXTROSE 5% IV (09:52)
[2023-10-22] MEDS: SMZ IV (09:52)
[2023-10-22] MEDS: TMP IV (09:52)
[2023-10-22] MEDS: WATER IV (09:52)
--- NOTE | 2023-10-22 10:19 | PHA.DC_ITS ---
Pharmacy [facility] has performed discharge medication reconciliation and counseling for this patient. Patient would like meds to beds, this [facility] called retail and requested delivery. 1. BACTRIM SS 1T PO BID X 5 DAYS 2. HOLD PLAVIX UNTIL 11/03 The patient's discharge medication list was reviewed for discrepancies and discrepancies were resolved. The patient was counseled on the following discharge medications and changes in medications for homegoing were reviewed. The Reason for Use, instructions for use, and potential side effects were reviewed for all new medications. The patient's questions regarding all of their medications were answered. The patient was able to verbally demonstrate an understanding of their discharge medications. Medications at Discharge Home Medications cholecalciferol (vitamin D3) 25 mcg (1,000 unit) capsule 25 mcg PO DAILY SUPPLE MENT 12/25/21 amlodipine 2.5 mg tablet 2.5 mg PO DAILY BLOOD PRESSURE #60 tabs 01/05/23 clopidogrel 75 mg tablet 75 mg PO DAILY BLOOD THINNER #30 tabs 01/05/23 blood pressure monitor #1 ea 01/15/23 metoprolol tartrate 50 mg tablet 50 mg PO BID BLOOD PRESSURE #60 tabs 02/24/23 levothyroxine 88 mcg tablet 88 mcg PO DAILY THYROID 05/29/23 aspirin 81 mg tablet,delayed release (Adult Aspirin Regimen) 81 mg PO DAILY 09/30/23 diphenhydramine 25 mg-acetaminophen 500 mg tablet (Tylenol PM Extra Strength) 2 tab PO QHS 09/30/23 pantoprazole 40 mg tablet,delayed release 40 mg PO DAILY ACID REFUX 09/30/23 prednisone 5 mg tablet 5 mg PO DAILY 09/30/23 sulfamethoxazole 400 mg-trimethoprim 80 mg tablet (Bactrim) 1 tab PO BID #10 tabs 10/21/23
[2023-10-22 12:14] VITALS: BP 112/67; PULSE 56; RESP 18; TEMP 36.6; O2SAT 94
== END 2023-10-22 12:40 | disposition home or self-care (01) ==
LOC: SDC 08:46 → AC 14:01 → MS3 15:38
PROVIDERS: Anesthesiology; PCP Family Medicine Geriatric Medicine; Referring Provider Urology; Visit Provider Urology
PROC: 0T5B8ZZ Destruction of Bladder, Via Natural or Artificial Opening Endoscopic (ICD-10-PCS; CPT 51720; principal; 2023-10-21 11:10)
DX: N40.2 Nodular prostate without lower urinary tract symptoms (principal); Z95.1 Presence of aortocoronary bypass graft; R31.0 Gross hematuria; Z79.82 Long term (current) use of aspirin; Z90.49 Acquired absence of other specified parts of digestive tract; I10 Essential (primary) hypertension; E03.9 Hypothyroidism, unspecified; E78.5 Hyperlipidemia, unspecified; R93.41 Abnormal radiologic findings on diagnostic imaging of renal pelvis, ureter, or bladder; Z95.5 Presence of coronary angioplasty implant and graft; Z86.73 Personal history of transient ischemic attack (TIA), and cerebral infarction without residual deficits
CPT/HCPCS: 52601; 00914; 84484; 88305; 93005; J7030; J7120; J9280; J2405

== ENCOUNTER → 2023-11-02 | Outpatient (CLI) | payer MEDICARE, SELFPAY ==
[2023-04-13 08:14] VITALS: BMI 24.3
--- NOTE | 2023-11-02 11:25 | RAD_ITS ---
STUDY: X-RAY - LUMBAR SPINE REASON FOR EXAM: Male, 83 years old. MUSCLE SPASMS OF BACK TECHNIQUE: 5 view(s) of the lumbar spine were obtained. COMPARISON: None FINDINGS: Normal lumbar lordosis. There is no substantial scoliosis. There is a normal alignment of the vertebrae. Mild wedge compression of L1. Mild spurring at the vertebral endplates. Status post surgical fusion at L3-L5 with laminectomy at L4 and L5. Normal disc space heights. The soft tissue structures are unremarkable. There is an IVC filter and placement RAD/L/S Spine Min 4 Views IMPRESSION: Degenerative and postsurgical changes of the lumbar spine. Electronically Signed: Wilmar Strauss DO at 17:20 EDT ,
== END | disposition home or self-care (01) ==
PROVIDERS: PCP Family Medicine Geriatric Medicine; Referring Provider Family Medicine Geriatric Medicine; Visit Provider Family Medicine Geriatric Medicine
DX: M62.830 Muscle spasm of back (principal); M54.31 Sciatica, right side
CPT/HCPCS: 72110

== ENCOUNTER → 2023-11-30 | Outpatient (CLI) | payer MEDICARE, SELFPAY ==
[2023-04-13 08:14] VITALS: BMI 24.3
--- NOTE | 2023-11-30 14:00 | MRI_ITS ---
STUDY: MRI LUMBAR SPINE WITHOUT CONTRAST REASON FOR EXAM: Male, 83 years old. LBP,COMPRESSION FX L1 prev mri 2019, hx prior surgery 24 years ago TECHNIQUE: Standardized fat and water weighted pulse sequences were obtained in the sagittal and axial planes. COMPARISON: MRI the lumbar spine dated October 07, 2021 FINDINGS: Normal lumbar lordosis. There is no substantial scoliosis. Normal conus medullaris that terminates at the L1 level. Chronic mild compression deformity of the T12 and L1 vertebral bodies. Stable fusion rods and pedicle screws from L3 down to L5. Metallic artifact at the levels of the hardware obscure the central canal and intervertebral neuroforamina which cannot be evaluated. T12-L1: Normal endplates. Diffuse disc desiccation with mild posterior disc space narrowing with no significant bulge or herniation of the disc. Normal bilateral facet joints. Normal central canal and bilateral lateral recesses. Normal bilateral intervertebral neural foramina. L1-2: Diffuse disc desiccation with moderate to severe posterior disc space narrowing with a small posterior disc spur complex the anterior and central disc space is mildly narrowed. Mild facet joint hypertrophy. Normal central canal and bilateral lateral recesses. Normal bilateral intervertebral neural foramina. L2-3: Diffuse disc desiccation with moderate disc space narrowing and disc bulging. Mild to moderate facet joint hypertrophy. Normal central canal and bilateral lateral recesses. Normal bilateral intervertebral neural foramina. L3-4: Mild disc desiccation and disc space narrowing with partial bony ankylosis in the posterior aspect of the disc space. Normal central canal and bilateral lateral recesses. The facet joints and intervertebral neuroforamina are not visualized due to metallic artifact. L4-5: Mild disc space narrowing. No significant posterior disc herniation or bulging. Partial bony ankylosis in the posterior aspect of the disc space. Posterior surgical decompressive defect. Normal central canal and bilateral lateral recesses. The facet joints and intervertebral neuroforamina are not visualized due to metallic artifact. L5-S1: Posterior surgical decompressive defect. Normal disc height, hydration and morphology. Normal bilateral facet joints. Normal central canal and bilateral lateral recesses. Normal bilateral intervertebral neural foramina. Normal visualized sacral ala. There is moderate paraspinal muscular atrophy. Benign bilateral renal cysts redemonstrated which does not requiring additional imaging. MRI/Spine Lumbar (Routine) IMPRESSION: 1. Multilevel degenerative changes, as described above. Electronically Signed: Karthikeyan Thompson MD at 10:45 EDT ,
== END | disposition home or self-care (01) ==
LOC: MRI 13:18
PROVIDERS: PCP Family Medicine Geriatric Medicine; Referring Provider Family Medicine Geriatric Medicine; Visit Provider Family Medicine Geriatric Medicine
DX: S32.010A Wedge compression fracture of first lumbar vertebra, initial encounter for closed fracture (principal); M54.50 Low back pain, unspecified; X58.XXXA Exposure to other specified factors, initial encounter
CPT/HCPCS: 72148

== ENCOUNTER → 2023-12-09 | Outpatient (CLI) | payer MEDICARE, SELFPAY ==
[2023-04-13 08:14] VITALS: BMI 24.3
[2023-12-09 16:41] LABS: Absolute Lymphocyte Count 1.01 X10^3/uL (0.83-4.51); Absolute Neutrophil Count 5.3 X10^3/uL (2.0-7.7); Basophil# 0.02 X10^3/uL; Basophil% 0.3 % (0-1); Eosinophil# 0.04 X10^3/uL; Eosinophils% 0.6 % (0-5); Hematocrit 41.8 % (40-54); Hemoglobin 13.8 g/dL (13.0-16.5); Lymphocyte # 1.01 X10^3/ul (0.83-4.51); Lymphocyte % 14.2 % (19-41); Mean Corpuscular Volume 93.9 fL (80-94); Mean Platelet Vol. 9.5 fl (6.2-12.0); Monocyte# 0.69 X10^3/uL; Monocyte% 9.7 % (0-10); NRBC Flagged by Analyzer 0 % (0-5); Neutrophil # 5.33 X10^3/uL (2.7-7.7); Neutrophil % 74.6 % (47-70); Platelet Count 260 K/mm3 (150-450); RBC Distribution Width CV 13.6 % (11.6-14.6); RBC Distribution Width SD 46.5 fl (35.1-43.9); Red Blood Count 4.45 M/mm3 (4.6-6.2); White Blood Count 7.1 K/mm3 (4.4-11.0)
[2023-12-09 17:27] LABS: Anion Gap 5 (5-15); BNP,B-Type NATRIURETIC PEPTIDE 203.9 pg/mL (0-100); BUN 39 mg/dL (7-18); BUN/Creat Ratio 30.2 RATIO (10-20); Calcium,Total 9.1 mg/dL (8.5-10.1); Chloride 110 mmol/L (98-107); Creatinine, Serum 1.29 mg/dL (0.70-1.30); EST Glomerular Filtration Rate 57 mL/min (>60); Est Glom Filt Rate - Afr Amer 69 mL/min (>60); Glucose 102 mg/dL (74-106); Potassium 4.5 mmol/L (3.5-5.1); Sodium Level 141 mmol/L (136-145)
== END | disposition home or self-care (01) ==
PROVIDERS: PCP Family Medicine Geriatric Medicine; Referring Provider Family Medicine Geriatric Medicine; Visit Provider Family Medicine Geriatric Medicine
DX: I10 Essential (primary) hypertension (principal); R06.02 Shortness of breath
CPT/HCPCS: 36415; 80048; 83880; 85025; 87086; 87088; 87186

== ENCOUNTER → 2023-12-10 | Outpatient (CLI) | payer MEDICARE, SELFPAY ==
[2023-04-13 08:14] VITALS: BMI 24.3
--- NOTE | 2023-12-10 14:21 | BD_ITS ---
STUDY: DUAL ENERGY X-RAY ABSORPTIOMETRY / DXA REASON FOR EXAM: Male, 83 years old. BACK PAIN TECHNIQUE: Bone Mineral Density (BMD) measurements of left forearm and bilateral hips were obtained. COMPARISON: None. FINDINGS: Left Femur Total: g/cm2 (0.910) / T-score (-0.8) / Z-score (0.3) Left Femoral Neck: g/cm2 (0.707) / T-score (-1.6) / Z-score (-0.1) Right Femur Total: g/cm2 (0.857) / T-score (-1.2) / Z-score (-0.1) Right Femoral Neck: g/cm2 (0.672) / T-score (-1.9) / Z-score (-0.3) BD/Dexa Bone Density Study IMPRESSION: The patient is considered osteopenic as outlined below according to World [place] Organization (WHO) criteria with a moderate fracture risk. Reference Information: The T-score is the number of standard deviations above or below the standard which is normal for young adults at their peak bone mineral density. The World Health Organization (WHO) interprets the T-scores as follows: Above -1 Normal bone density Between -1 and -2.5 Osteopenia Equal to / or below -2.5 Osteoporosis As a practical clinical guideline, osteopenia may be graded as follows: Mild -1 through -1.5 Moderate -1.6 through -2.0 Severe -2.1 through -2.4 The Z-score is the number of standard deviations above or below age-matched controls. A Z-score of less than -1.5 would be considered abnormal. References: 1. NIH Osteoporosis and Related Bone Diseases www osteo.org 2. International Society for Clinical Densitometry www iscd.org 3. National Osteoporosis Foundation www nof.org Electronically Signed: Charanjit Smith MD at 11:13 EDT ,
== END | disposition home or self-care (01) ==
LOC: OPBD 14:19
PROVIDERS: PCP Family Medicine Geriatric Medicine; Referring Provider Family Medicine Geriatric Medicine; Visit Provider Family Medicine Geriatric Medicine
DX: S32.010A Wedge compression fracture of first lumbar vertebra, initial encounter for closed fracture (principal); M54.50 Low back pain, unspecified
CPT/HCPCS: 77080

== ENCOUNTER → 2023-12-16 | Outpatient (CLI) | payer MEDICARE, SELFPAY ==
[2023-04-13 08:14] VITALS: BMI 24.3
== END | disposition home or self-care (01) ==
PROVIDERS: PCP Family Medicine Geriatric Medicine; Referring Provider Family Medicine Geriatric Medicine; Visit Provider Family Medicine Geriatric Medicine
DX: N39.0 Urinary tract infection, site not specified (principal)
CPT/HCPCS: 87086; 87088

== ENCOUNTER → 2023-12-25 | Outpatient (CLI) | payer MEDICARE, SELFPAY ==
[2023-04-13 08:14] VITALS: BMI 24.3
== END | disposition home or self-care (01) ==
PROVIDERS: PCP Family Medicine Geriatric Medicine; Referring Provider Family Medicine Geriatric Medicine; Visit Provider Family Medicine Geriatric Medicine
DX: U07.1 COVID-19 (principal); R68.83 Chills (without fever); B37.0 Candidal stomatitis; K14.6 Glossodynia
CPT/HCPCS: 87631

== ENCOUNTER → 2023-12-29 | Outpatient (CLI) | payer MEDICARE, SELFPAY ==
[2023-04-13 08:14] VITALS: BMI 24.3
[2023-12-29 10:25] LABS: Absolute Lymphocyte Count 1.34 X10^3/uL (0.83-4.51); Absolute Neutrophil Count 6.7 X10^3/uL (2.0-7.7); Basophil# 0.03 X10^3/uL; Basophil% 0.3 % (0-1); Eosinophil# 0.02 X10^3/uL; Eosinophils% 0.2 % (0-5); Hematocrit 41.2 % (40-54); Hemoglobin 13.6 g/dL (13.0-16.5); Lymphocyte # 1.34 X10^3/ul (0.83-4.51); Mean Corpuscular Hgb 31.3 pg (27.0-32.0); Mean Corpuscular Volume 94.7 fL (80-94); Mean Platelet Vol. 9.5 fl (6.2-12.0); Monocyte% 8.9 % (0-10); NRBC Flagged by Analyzer 0 % (0-5); Neutrophil # 6.67 X10^3/uL (2.7-7.7); Neutrophil % 74.5 % (47-70); Platelet Count 236 K/mm3 (150-450); RBC Distribution Width CV 13.8 % (11.6-14.6); RBC Distribution Width SD 47.7 fl (35.1-43.9); Red Blood Count 4.35 M/mm3 (4.6-6.2)
[2023-12-29 10:51] LABS: Vitamin D,25 Hydroxy 66.2 ng/mL
[2023-12-29 10:56] LABS: ALB/GLOB Ratio 1.1 RATIO (0.9-2.4); AST(SGOT) 18 U/L (15-37); Alanine Aminotransfer ALT/SGPT 26 U/L (16-61); Albumin, Serum 3.2 g/dL (3.2-5.0); Alkaline Phosphatase 60 U/L (45-117); Anion Gap 6 (5-15); BUN 30 mg/dL (7-18); BUN/Creat Ratio 22.4 RATIO (10-20); Calcium,Total 8.8 mg/dL (8.5-10.1); Chloride 110 mmol/L (98-107); Creatinine, Serum 1.34 mg/dL (0.70-1.30); EST Glomerular Filtration Rate 54 mL/min (>60); Est Glom Filt Rate - Afr Amer 66 mL/min (>60); Glucose 94 mg/dL (74-106); Potassium 4.4 mmol/L (3.5-5.1); Protein, Total 6.2 g/dL (6.4-8.2); Sodium Level 140 mmol/L (136-145); Thyroid Stim Hormone (TSH) 0.94 uIU/mL (0.358-3.74)
== END | disposition home or self-care (01) ==
LOC: POLAB3 09:52
PROVIDERS: PCP Family Medicine Geriatric Medicine; Visit Provider Family Medicine Geriatric Medicine
DX: I10 Essential (primary) hypertension (principal); E55.9 Vitamin D deficiency, unspecified
CPT/HCPCS: 36415; 80053; 82306; 84443; 85025

== ENCOUNTER → 2023-12-31 | Outpatient (CLI) | payer MEDICARE, SELFPAY ==
[2023-04-13 08:14] VITALS: BMI 24.3
--- NOTE | 2023-12-31 09:05 | RAD_ITS ---
INDICATION: AWAN EXAMINATION/TECHNIQUE: X-RAY - XR Chest 2 Views COMPARISON: 03/20/2023 FINDINGS: LIFE-SUPPORT AND LINES: 1. Median sternotomy wires again demonstrated. Surgical clips are present. HEART AND VESSELS: The cardiac silhouette, pulmonary vasculature have normal appearance. No evidence of congestive failure. LUNGS AND PLEURAL SPACES: Lungs are clear. No focal infiltrate, consolidation or effusions. No evidence of pneumothorax. No pulmonary mass is noted. MEDIASTINUM AND HILAR REGIONS: No masses adenopathy noted. No areas of calcification. Visualized upper airway is normal in position. BONY ELEMENTS: No acute bony changes noted. RAD/Chest PA and Lateral IMPRESSION: 1. Postop changes of prior CABG. 2. No evidence of acute cardiopulmonary process. Electronically Signed: Jose Tsang MD at 1:14 EDT ,
[2023-12-31 09:45] LABS: Absolute Neutrophil Count 7.1 X10^3/uL (2.0-7.7); Basophil# 0.03 X10^3/uL; Basophil% 0.3 % (0-1); Eosinophil# 0.02 X10^3/uL; Eosinophils% 0.2 % (0-5); Hematocrit 43.5 % (40-54); Hemoglobin 14.2 g/dL (13.0-16.5); Lymphocyte % 12.9 % (19-41); Mean Corp Hgb Conc 32.6 g/dL (32-36); Mean Corpuscular Hgb 31.3 pg (27.0-32.0); Mean Platelet Vol. 9.4 fl (6.2-12.0); Monocyte# 0.93 X10^3/uL; NRBC Flagged by Analyzer 0 % (0-5); Neutrophil # 7.05 X10^3/uL (2.7-7.7); Neutrophil % 75.8 % (47-70); Platelet Count 255 K/mm3 (150-450); RBC Distribution Width CV 14.2 % (11.6-14.6); RBC Distribution Width SD 49.7 fl (35.1-43.9); Red Blood Count 4.53 M/mm3 (4.6-6.2); White Blood Count 9.3 K/mm3 (4.4-11.0)
[2023-12-31 10:08] LABS: BNP,B-Type NATRIURETIC PEPTIDE 178.4 pg/mL (0-100)
[2023-12-31 10:11] LABS: AST(SGOT) 15 U/L (15-37); Alanine Aminotransfer ALT/SGPT 30 U/L (16-61); Albumin, Serum 3.4 g/dL (3.2-5.0); Alkaline Phosphatase 66 U/L (45-117); Anion Gap 3 (5-15); BUN 28 mg/dL (7-18); Bilirubin, Direct 0.22 mg/dL (0.00-0.30); Calcium,Total 8.9 mg/dL (8.5-10.1); Chloride 115 mmol/L (98-107); Cholesterol 259 mg/dL (200); Creatinine, Serum 1.27 mg/dL (0.70-1.30); EST Glomerular Filtration Rate 58 mL/min (>60); Est Glom Filt Rate - Afr Amer 70 mL/min (>60); Globulin 3.1 g/dL (2.2-4.2); Glucose 92 mg/dL (74-106); High Density Lipoprotein 45 mg/dL; Potassium 4.7 mmol/L (3.5-5.1); Protein, Total 6.5 g/dL (6.4-8.2); Sodium Level 143 mmol/L (136-145); Triglycerides 192 mg/dL; Very Low Density Lipoprotein 38 mg/dL (5-40)
== END | disposition home or self-care (01) ==
LOC: RAD 09:03
PROVIDERS: PCP Family Medicine Geriatric Medicine; Referring Provider Nurse Practitioner Gerontology; Visit Provider Nurse Practitioner Gerontology
DX: R06.09 Other forms of dyspnea (principal); E78.00 Pure hypercholesterolemia, unspecified; Z95.1 Presence of aortocoronary bypass graft
CPT/HCPCS: 36415; 71046; 80048; 80061; 80076; 83880; 85025

== ENCOUNTER 2024-01-05 06:38 | Inpatient (IN) | payer MEDICARE, SELFPAY ==
[2023-04-13 08:14] VITALS: BMI 24.3
[2024-01-05] VITALS (12 sets, daily range): BP systolic 123–138; BP diastolic 81–108; PULSE 62–75; RESP 15–22; TEMP 36.3–36.7; O2SAT 95–99; BMI 22.9; BMI 22.8
--- NOTE | 2024-01-05 07:08 | EKG12_ITS ---
Test Reason : SOB Blood Pressure : / mmHG Vent. Rate : 064 BPM Atrial Rate : 064 BPM P-R Int : 214 ms QRS Dur : 078 ms QT Int : 406 ms P-R-T Axes : -05 -31 013 degrees QTc Int : 418 ms Sinus rhythm with 1st degree A-V block with frequent Premature ventricular complexes and Premature at rial complexes Left axis deviation Low voltage QRS Abnormal ECG Confirmed by Gregorio Salguero ([id number]), editor trade journal ERICK ROSSI ([id number]) on 01/07/2024 9:25:39 AM Referred By: Confirmed By:Gregoiro Salguero
--- NOTE | 2024-01-05 07:08 | RAD_ITS ---
EXAM: XR CHEST, 1 VIEW CLINICAL INDICATION: Shortness of breath TECHNIQUE: Frontal view of the chest. COMPARISON: 12/31/2023. FINDINGS: LUNGS AND PLEURAL SPACES: Unremarkable. No consolidation or edema. No pneumothorax. No effusion. HEART: Unremarkable. Cardiac silhouette not enlarged. MEDIASTINUM: Central airways and mediastinal contour are unremarkable. BONES/JOINTS: Sternal wires. No acute fracture. SOFT TISSUES: Unremarkable. RAD/Chest 1 View (Portable) IMPRESSION: No acute cardiopulmonary abnormality. Electronically Signed: Gregorio Guthrie MD at 7:30 EDT ,
--- NOTE | 2024-01-05 07:09 | ED.VIS.DYS ---
HPI History of Present Illness Chief Complaint: Shortness of Breath Narrative Narrative: 83-year-old male past medical history of pulmonary emboli and DVT, status post IVC filter presents with complaints of generalized weakness and shortness of breath with dyspnea on exertion since December 02, approximately 1 month ago. Over the weekend, 4 to 5 days ago, his daughter relates history that he felt more weak. Today he could not get out of bed. He states that he has been short of breath and when he walks to the mailbox only 100 feet he is very winded. He denies history of COPD or CHF, but has had swelling in the past and he was put on Lasix. He does live at home alone and he presents with his daughter because of the generalized weakness and shortness of breath. He denies any fevers or chills, he has occasional cough. No nausea or vomiting, no other symptoms. [facility] Medical History Wears glasses Thyroid disease History of steroid therapy Prostate disease Bladder disease High cholesterol History of echocardiogram History of stress test Cardiology follow-up encounter H/O Legionnaire's disease (~2019) [place] filter in place Kidney stones GI bleed Pulmonary embolism Coronary artery disease TIA (transient ischemic attack) Postoperative atrial fibrillation Atherosclerotic heart disease of [place] coronary artery without angina pectoris CAD (coronary artery disease) Pulmonary nodule D-dimer, elevated Edema Dyspnea on exertion Essential hypertension BPH (benign prostatic hyperplasia) Nasal sinus polyp DDD (degenerative disc disease) Fibromyalgia Syncope White coat syndrome with hypertension 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 Hemorrhoid Premature ventricular contraction [place] Cardiomyopathy in other diseases classified elsewhere Hyperlipidemia Premature atrial contractions Hypothyroid Acid reflux HTN (hypertension) Home Medications ?Medication ?Instructions ?Recorded ?Last Taken ?Type cholecalciferol (vitamin D3) 25 25 mcg PO DAILY SUPPLEMENT 12/25/21 10/20/23 History mcg (1,000 unit) capsule amlodipine 2.5 mg tablet 2.5 mg PO DAILY BLOOD PRESSURE #60 01/05/23 10/21/23 Rx tabs clopidogrel 75 mg tablet 75 mg PO DAILY BLOOD THINNER #30 01/05/23 10/09/23 Rx tabs blood pressure monitor #1 ea 01/15/23 Unknown Rx metoprolol tartrate 50 mg tablet 50 mg PO BID BLOOD PRESSURE #60 02/24/23 10/21/23 Rx tabs levothyroxine 88 mcg tablet 88 mcg PO DAILY THYROID 05/29/23 10/21/23 History aspirin 81 mg tablet,delayed 81 mg PO DAILY 09/30/23 10/20/23 History release (Adult Aspirin Regimen) diphenhydramine 25 2 tab PO QHS 09/30/23 10/20/23 History mg-acetaminophen 500 mg tablet (Tylenol PM Extra Strength) pantoprazole 40 mg tablet,delayed 40 mg PO DAILY ACID REFUX 09/30/23 10/21/23 History release furosemide 40 mg tablet (Lasix) 40 mg PO DAILY #30 tabs 12/31/23 Unknown Rx Allergy/AdvReac Type Severity Reaction Status Date / Time erythromycin base Allergy Hives Verified 01/05/24 06:40 amoxicillin (From Augmentin) AdvReac Severe Itching Verified 01/05/24 06:40 atorvastatin AdvReac Severe myalgias Verified 01/05/24 06:40 clavulanic acid (From AdvReac Severe Itching Verified 01/05/24 06:40 Augmentin) fenofibrate (From Tricor) AdvReac Severe myalgias Verified 01/05/24 06:40 levofloxacin (From Levaquin) AdvReac Unknown Unknown Verified 01/05/24 06:40 Family History Father CVA (cerebral vascular accident) Hypertension Heart disease Mother CAD (coronary artery disease) Brother Hypertension Brother CAD (coronary artery disease) Hypertension Sister Hypertension Sister Patent foramen ovale Sister Hypertension Lung cancer Other Dyspnea on exertion Surgical History History of cardiac catheterization (~02/22/21) Hx of CABG (~2018) History of coronary artery stent placement History of placement of stent in LAD coronary artery (01/05/23) History of coronary artery bypass graft x 3 (~02/26/21) History of radiofrequency ablation procedure for cardiac arrhythmia (~10/2002) History of cholecystectomy Hx of appendectomy History of kidney surgery (~2001) History of back surgery (~1999) H/O hemorrhoidectomy Social History household members: none Smoking Status: Never smoker alcohol intake: never substance use type: does not use ROS ROS ED ROS Narrative Constitutional: No fever, no chills. Positive generalized weakness. No energy. HEENT: No sore throat. No neck pain. No loss of vision. No rhinorrhea. Cardiovascular: No chest pain. No palpitations. No pedal edema. Respiratory: Occasional cough, positive dyspnea on exertion and shortness of breath. Abdominal: No abdominal pain. No nausea. No vomiting. Genitourinary: No dysuria. No hematuria. Musculoskeletal: No myalgias. No arthralgias. Neurologic: No headaches. No dizziness. No lightheadedness. Skin: No rash. No change in color. Psychiatric: No depression. No anxiety. EXAM Physical Exam Narrative Exam Narrative: Afebrile. Vital signs noted. HEENT: Normocephalic. Atraumatic. PERRL, EOMI. Neck soft and supple. No point tenderness or step off. Cardiovascular: Regular rate and rhythm. No murmurs, rubs, or gallops appreciated. Respiratory: No tachypnea. Lungs clear to auscultation bilaterally. Decreased breath sounds bilateral bases. No expiratory wheezing. No distress. Gastrointestinal: Abdomen soft, nontender, with normoactive bowel sounds. No rebound or guarding. Neurological: Awake. Alert. Nonfocal, nonlateralizing. Skin: No rash. Normal color. No pallor. Musculoskeletal: Positive bilateral pedal edema left greater than right. Full range of motion extremities. Const Vital Signs: 01/05/24 06:42 01/05/24 06:42 01/05/24 06:48 Temperature 97.9 F Temperature Source Temporal Pulse Rate 70 65 Respiratory Rate 22 H 17 Respiratory Effort Normal Respiratory Depth Normal Respiratory Pattern Normal Blood Pressure 128/106 H 128/106 H Blood Pressure Mean 113 113 Pulse Ox 99 97 Oxygen Delivery Method Room Air Room Air Room Air 01/05/24 08:35 01/05/24 08:36 Temperature 98.1 F 98.1 F Temperature Source Oral Pulse Rate 67 67 Respiratory Rate 19 H 17 Respiratory Effort Respiratory Depth Respiratory Pattern Blood Pressure 123/88 H 123/88 H Blood Pressure Mean 99 99 Pulse Ox 97 98 Oxygen Delivery Method Room Air MDM MDM MDM Narrative Medical decision making narrative: Differential diagnosis includes but not limited to pneumonia versus pneumothorax versus CHF exacerbation versus ACS. History and physical does not support pneumothorax and he has bilateral breath sounds. His symptoms have been ongoing for a month as well, so I doubt ACS. He does not really have a history of CHF but he does have chronic kidney disease. For his generalized weakness, he may be dehydrated versus other electrolyte abnormality. I have low suspicion for anemia requiring transfusion based on his clinical examination. Comprehensive workup was pursued. EKG was obtained and interpreted by myself independently as normal sinus rhythm with PVCs and PACs but no STEMI. I reviewed interpreted his chest x-ray independently and see no evidence of pneumonia or pneumothorax. I reviewed the radiology report which confirms my independent interpretation. On review of his laboratory work, he has normal white count of 9.0, hemoglobin 13.8, platelet count normal at 199. Sodium normal at 141, potassium 4.9, BUN of 53 and creatinine did elevate to 2.66. In comparison to laboratory work 5 days ago, his creatinine was elevated, but is almost doubled. He was bolused normal saline 1 L intravenously. High-sensitivity troponin is 6. I do not feel he needs serial enzymes. BNP is also normal. In review of his urinalysis, while he has 0-5 white cells, he has RBCs 25-50 with rare bacteria. No feel he necessarily needs antibiotics for UTI. There is noted mucus. Given his generalized weakness and that he lives alone, I do feel that with an acute kidney injury, that he merits observation. I discussed patient with Dr. Ramirez who would like him as a full admit to the general medical floor. Patient is in stable condition. History & Record Review Discussion w/independent historian: Patient Additional record(s) reviewed:: Prior labs Lab Data Attestation: I reviewed the patient's lab results. Labs: Laboratory Results - last 24 hr 01/05/24 01/05/24 06:55 07:55 WBC 9.0 RBC 4.35 L Hgb 13.8 Hct 42.1 MCV 96.8 H MCH 31.7 MCHC 32.8 RDW Std Deviation 51.1 H RDW Coeff of Suk[place] 14.4 Plt Count 199 MPV 9.9 Immature Gran % (Auto) 0.800 Neut % (Auto) 75.5 H Lymph % (Auto) 13.9 L [place] % (Auto) 9.3 Eos % (Auto) 0.2 Baso % (Auto) 0.3 Absolute Neuts (auto) 6.8 Absolute Lymphs (auto) 1.26 Nucleated RBC % 0 Sodium 141 Potassium 4.9 Chloride 110 H Carbon Dioxide 24.0 Anion Gap 7 BUN 53 H Creatinine 2.66 H Estim Creat Clear Calc 22.99 Est GFR (MDRD) Af Amer 30 L Est GFR (MDRD) Non-Af 25 L BUN/Creatinine Ratio 19.9 Glucose 116 H Calcium 9.4 Total Bilirubin 1.40 H AST 12 L ALT 24 Alkaline Phosphatase 63 Troponin I High Sens 6 B-Natriuretic Peptide 84.8 Total Protein 6.8 Albumin 3.6 Globulin 3.2 Albumin/Globulin Ratio 1.1 Urine Color Yellow Urine Clarity Clear Urine pH 5.0 Ur Specific [place] 1.010 Urine Protein 15 H Urine Glucose (UA) Normal Urine Ketones Negative Urine Occult Blood 250 H Urine Nitrite Negative Urine Bilirubin Negative Urine Urobilinogen Normal Ur Leukocyte Esterase 25 H Urine RBC 25-50 SEEN Urine WBC 0-5 SEEN Ur Squamous Epith Cells 0-5 SEEN Urine Bacteria RARE Hyaline Casts 0-5 SEEN Urine Mucus 1+ Radiography Diagnostic Testing: Clinical Impression(s) from Imaging Studies Chest X-Ray 01/05/24 07:08 IMPRESSION: No acute cardiopulmonary abnormality. Electronically Signed: Gregorio Guthrie MD at 7:30 EDT , Discharge Plan Dx/Rx/DC Orders Clinical Impression: Generalized weakness, Acute kidney injury, Chronic kidney disease, S/P insertion of IVC (inferior vena caval) filter, Dehydration Disposition Disposition: Acute Care Hospital [facility]
[2024-01-05 07:19] LABS: Absolute Lymphocyte Count 1.26 X10^3/uL (0.83-4.51); Absolute Neutrophil Count 6.8 X10^3/uL (2.0-7.7); Basophil# 0.03 X10^3/uL; Basophil% 0.3 % (0-1); Eosinophil# 0.02 X10^3/uL; Eosinophils% 0.2 % (0-5); Hematocrit 42.1 % (40-54); Hemoglobin 13.8 g/dL (13.0-16.5); Lymphocyte # 1.26 X10^3/ul (0.83-4.51); Lymphocyte % 13.9 % (19-41); Mean Corp Hgb Conc 32.8 g/dL (32-36); Mean Corpuscular Hgb 31.7 pg (27.0-32.0); Mean Corpuscular Volume 96.8 fL (80-94); Mean Platelet Vol. 9.9 fl (6.2-12.0); Monocyte# 0.84 X10^3/uL; Monocyte% 9.3 % (0-10); NRBC Flagged by Analyzer 0 % (0-5); Neutrophil # 6.82 X10^3/uL (2.7-7.7); Neutrophil % 75.5 % (47-70); Platelet Count 199 K/mm3 (150-450); RBC Distribution Width CV 14.4 % (11.6-14.6); RBC Distribution Width SD 51.1 fl (35.1-43.9); Red Blood Count 4.35 M/mm3 (4.6-6.2)
[2024-01-05 07:33] LABS: ALB/GLOB Ratio 1.1 RATIO (0.9-2.4); AST(SGOT) 12 U/L (15-37); Alanine Aminotransfer ALT/SGPT 24 U/L (16-61); Albumin, Serum 3.6 g/dL (3.2-5.0); Alkaline Phosphatase 63 U/L (45-117); Anion Gap 7 (5-15); BUN 53 mg/dL (7-18); BUN/Creat Ratio 19.9 RATIO (10-20); Calcium,Total 9.4 mg/dL (8.5-10.1); Chloride 110 mmol/L (98-107); Creatinine, Serum 2.66 mg/dL (0.70-1.30); EST Glomerular Filtration Rate 25 mL/min (>60); Est Glom Filt Rate - Afr Amer 30 mL/min (>60); Estimated Creatinine Clearance 22.99 ml/min; Globulin 3.2 g/dL (2.2-4.2); Glucose 116 mg/dL (74-106); Potassium 4.9 mmol/L (3.5-5.1); Protein, Total 6.8 g/dL (6.4-8.2); Sodium Level 141 mmol/L (136-145); Troponin-I HS 6 pg/mL (3.0-78.0)
[2024-01-05 08:11] LABS: Color, Urine Yellow (Yellow); Glucose, Dipstick Normal (Normal); Ketone-Dipstick Negative (Negative); Leukocyte Esterase-Dipstick 25 /ul (Negative); Nitrite-Dipstick Negative (Negative); Occult Blood-Urine 250 /ul (Negative); Protein-Dipstick 15 mg/dl (Negative); Urine Bilirubin Dipstick Negative (Negative); Urine Clarity Clear (Clear); Urine Urobilinogen Normal (Normal)
[2024-01-05 08:18] LABS: BNP,B-Type NATRIURETIC PEPTIDE 84.8 pg/mL (0-100)
[2024-01-05 08:21] LABS: Red Blood Cells-Urine 25-50 SEEN /hpf (0-5); White Blood Cells 0-5 SEEN /hpf (0-5)
[2024-01-05 08:22] LABS: Bacteria RARE /hpf (None Seen); Hyaline Cast 0-5 SEEN /lpf (0-5); Mucous, Urine 1+ /hpf (<or=2+); Squamous Epithelial Cells - UA 0-5 SEEN /hpf (0-5)
[2024-01-05] MEDS: 0.9% Normal Saline (1000mL) 1,000 ML 999 ML IV (08:35)
--- NOTE | 2024-01-05 08:40 | ED.RN ---
CALLED [facility] DAUGHTER AND LET HER KNOW PT IS BEING ADMITTED PER PT REQUEST
--- NOTE | 2024-01-05 09:22 | HP.PCM.HOS_ITS ---
HPI - General General Date of Admission: 01/05/24 Date of Service: 01/05/24 Chief Complaint: Generalized weakness, fatigue even walking to the mailbox, shortness of breath, increased left leg swelling. HPI Narrative KULWANT ANDRADE, is a 83 M states he has generalized weakness with dyspnea on exertion since December 02 about a month ago. Since that he has been feeling more weaker. He had increased leg swelling and was put on Lasix that further increase to shortness of breath. He is urinating frequently. For last 4 to 5 days he is feeling more weak, could not even walk to the mailbox and gets winded. He had bilateral leg swelling left more than right about a month ago which got better with Lasix. Left leg is still more swollen. No pain. He said he had DVT in the left leg after the CABG and was off thumb size. No fever or chills or burning micturition. In ED, vitals were in normal range. Usual lab work shows increased creatinine , 2.66. Normal BNP and normal troponin. Patient is further admitted for B[facility] Medical History Wears glasses Thyroid disease History of steroid therapy Prostate disease Bladder disease High cholesterol History of echocardiogram History of stress test Cardiology follow-up encounter H/O Legionnaire's disease (~2019) Fortun[place] filter in place Kidney stones GI bleed Pulmonary embolism Coronary artery disease TIA (transient ischemic attack) Postoperative atrial fibrillation Atherosclerotic heart disease of [place] coronary artery without angina pectoris CAD (coronary artery disease) Pulmonary nodule D-dimer, elevated Edema Dyspnea on exertion Essential hypertension BPH (benign prostatic hyperplasia) Nasal sinus polyp DDD (degenerative disc disease) Fibromyalgia Syncope White coat syndrome with hypertension 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 Hemorrhoid Premature ventricular contraction [place] Cardiomyopathy in other diseases classified elsewhere Hyperlipidemia Premature atrial contractions Hypothyroid Acid reflux HTN (hypertension) Home Medications ?Medication ?Instructions ?Recorded ?Last Taken ?Type cholecalciferol (vitamin D3) 25 25 mcg PO DAILY SUPPLEMENT 12/25/21 01/04/24 History mcg (1,000 unit) capsule amlodipine 2.5 mg tablet 2.5 mg PO DAILY BLOOD PRESSURE #60 01/05/23 01/04/24 Rx tabs clopidogrel 75 mg tablet 75 mg PO DAILY BLOOD THINNER #30 01/05/23 01/04/24 Rx tabs blood pressure monitor #1 ea 01/15/23 Unknown Rx metoprolol tartrate 50 mg tablet 50 mg PO BID BLOOD PRESSURE #60 02/24/23 01/04/24 Rx tabs levothyroxine 88 mcg tablet 88 mcg PO DAILY THYROID 05/29/23 01/04/24 History aspirin 81 mg tablet,delayed 81 mg PO DAILY Anticoagulant 09/30/23 01/04/24 History release (Adult Aspirin Regimen) diphenhydramine 25 2 tab PO QHS Sleep 09/30/23 01/04/24 History mg-acetaminophen 500 mg tablet (Tylenol PM Extra Strength) pantoprazole 40 mg tablet,delayed 40 mg PO DAILY ACID REFUX 09/30/23 01/04/24 History release furosemide 40 mg tablet (Lasix) 40 mg PO DAILY Water retention #30 12/31/23 01/05/24 Rx tabs Allergy/AdvReac Type Severity Reaction Status Date / Time erythromycin base Allergy Hives Verified 01/05/24 06:40 amoxicillin (From Augmentin) AdvReac Severe Itching Verified 01/05/24 06:40 atorvastatin AdvReac Severe myalgias Verified 01/05/24 06:40 clavulanic acid (From AdvReac Severe Itching Verified 01/05/24 06:40 Augmentin) fenofibrate (From Tricor) AdvReac Severe myalgias Verified 01/05/24 06:40 levofloxacin (From Levaquin) AdvReac Unknown Unknown Verified 01/05/24 06:40 Family History Father CVA (cerebral vascular accident) Hypertension Heart disease Mother CAD (coronary artery disease) Brother Hypertension Brother CAD (coronary artery disease) Hypertension Sister Hypertension Sister Patent foramen ovale Sister Hypertension Lung cancer Other Dyspnea on exertion Surgical History History of cardiac catheterization (~02/22/21) Hx of CABG (~2018) History of coronary artery stent placement History of placement of stent in LAD coronary artery (01/05/23) History of coronary artery bypass graft x 3 (~02/26/21) History of radiofrequency ablation procedure for cardiac arrhythmia (~10/2002) History of cholecystectomy Hx of appendectomy History of kidney surgery (~2001) History of back surgery (~1999) H/O hemorrhoidectomy Social History household members: none Smoking Status: Never smoker alcohol intake: never substance use type: does not use ROS ROS Narrative Constitutional: Reports generalized fatigue and weakness. No fever. HEENT: Reports systems reviewed and no addt'l complaints, except as documented Respiratory/Chest: No acute shortness of breath or respiratory distress or wheezing. CVS: No chest pain or shortness of breath. Old CABG. Gastrointestinal: Denies coffee ground emesis, hematemesis or vomiting Genitourinary: On furosemide. Denies burning urination or new urinary tract symptoms Musculoskeletal: Denies acute joint pain or limited range of motion. No acute injury Neurologic: Denies seizure-like symptoms. skin: No ulcer. No rash Endocrinology: Reports systems reviewed and no addt'l complaints, except as documented Hematologic/Lymphatic: History of left leg DVT. History of IVC filter as he could not tolerate anticoagulant. Reports systems reviewed and no addt'l complaints, except as documented Rest 14 ROS are negative except as mentioned in HPI Vital Signs Vital Signs Vital Signs: 01/05/24 06:42 01/05/24 06:42 01/05/24 06:48 Temperature 97.9 F Temperature Source Temporal Pulse Rate 70 65 Respiratory Rate 22 H 17 Respiratory Effort Normal Respiratory Depth Normal Respiratory Pattern Normal Blood Pressure 128/106 H 128/106 H Blood Pressure Mean 113 113 Pulse Ox 99 97 Oxygen Delivery Method Room Air Room Air Room Air 01/05/24 08:35 01/05/24 08:36 Temperature 98.1 F 98.1 F Temperature Source Oral Pulse Rate 67 67 Respiratory Rate 19 H 17 Respiratory Effort Respiratory Depth Respiratory Pattern Blood Pressure 123/88 H 123/88 H Blood Pressure Mean 99 99 Pulse Ox 97 98 Oxygen Delivery Method Room Air Weight Weight: 164 lb 8 oz Body Mass Index (BMI) 22.9 Physical Exam Narrative General: Alert, Oriented x3, Cooperative HEENT: Atraumatic, PERRLA, EOMI, Normocephalic Oral: Oral mucosa moist. No Gingival or Mucosal Lesions/ Ulcerations Neck: Supple, No JVD, Negative Carotid Bruits Chest wall/Lungs: Air entry diminished in bilateral lung bases. No crepitation/rhonchi Cardiovascular: Open heart surgery scar. Normal S1, Normal S2, soft systolic murmur Abdomen: Bowel Sounds Present, Soft, Non Tender, Non-Distended : No dysuria. No renal angle tenderness. No suprapubic tenderness. Extremities: Left leg swollen more than right. Capillary Refill Less than 3 Seconds Skin: No rashes, No breakdown Musculoskeletal: No Tenderness to Palpation of Joints or Extremities. No tenderness. ROM intact Neurological: Cranial nerves II-XII grossly intact, DTR 2+/4. No acute focal neurological deficit. Psych/Mental Status: Normal Affect, Appropriate. Results Lab / Micro Data 01/05/24 06:55 01/05/24 06:55 Labs: Laboratory Results - last 24 hr 01/05/24 06:55: WBC 9.0, RBC 4.35 L, Hgb 13.8, Hct 42.1, MCV 96.8 H, MCH 31.7, MCHC 32.8, RDW Std Deviation 51.1 H, RDW Coeff of Sukumar 14.4, Plt Count 199, MPV 9.9, Immature Gran % (Auto) 0.800, Neut % (Auto) 75.5 H, Lymph % (Auto) 13.9 L, Marshall % (Auto) 9.3, Eos % (Auto) 0.2, Baso % (Auto) 0.3, Absolute Neuts (auto) 6.8, Absolute Lymphs (auto) 1.26, Nucleated RBC % 0, Sodium 141, Potassium 4.9, Chloride 110 H, Carbon Dioxide 24.0, Anion Gap 7, BUN 53 H, Creatinine 2.66 H, Estim Creat Clear Calc 22.99, Est GFR (MDRD) Af Amer 30 L, Est GFR (MDRD) Non-Af 25 L, BUN/Creatinine Ratio 19.9, Glucose 116 H, Calcium 9.4, Total Bilirubin 1.40 H, AST 12 L, ALT 24, Alkaline Phosphatase 63, Troponin I High Sens 6, B- Natriuretic Peptide 84.8, Total Protein 6.8, Albumin 3.6, Globulin 3.2, Albumin/Globulin Ratio 1.1 01/05/24 07:55: Urine Color Yellow, Urine Clarity Clear, Urine pH 5.0, Ur Specific [place] 1.010, Urine Protein 15 H, Urine Glucose (UA) Normal, Urine Ketones Negative, Urine Occult Blood 250 H, Urine Nitrite Negative, Urine Bilirubin Negative, Urine Urobilinogen Normal, Ur Leukocyte Esterase 25 H, Urine RBC 25-50 SEEN, Urine WBC 0-5 SEEN, Ur Squamous Epith Cells 0-5 SEEN, Urine Bacteria RARE, Hyaline Casts 0-5 SEEN, Urine Mucus 1+ Imaging Radiology Impression Chest X-Ray 01/05/24 07:08 IMPRESSION: No acute cardiopulmonary abnormality. Electronically Signed: Gregorio Guthrie MD at 7:30 EDT , Assessment & Plan Assessment/Plan (1) Acute kidney injury: PLAN: Plan This is a 83-year-old gentleman being admitted for generalized fatigue and weakness. Found to be BART 1. BART most likely due to diuretic on CKD stage IIIa: Patient is being admitted on [facility] floor. Started on IV fluid normal saline 100 mill per hour for 2 L. Furosemide/diuretics discontinued. UA shows occult blood 250, protein 15. RBC 25-50 cells, WBC 0-5 sensitively 25. Nitrite negative. Urine electrolytes and indices ordered. Urine culture ordered. Chest x-ray no acute abnormality 2. Chronic BPH: Patient is stated he gets intermittent hematuria and had prostate surgery many years ago by Dr. Perdomo and used to follow Dr. Banda. Currently denies any decrease in urinary stream or force. Bladder scan every 4 hourly. Patient had cystoscopy in September 2023 for suspected prostate nodule but found to be BPH. Had transurethral section of the prostate. 3. Acute bilateral lower extremity DVT with history of chronic DVT status post IVC filter: In the past patient could not tolerate anticoagulants. He had 3 units blood transfusion in the past and requiring admission in May 2023. Had IVC filter in June 03, 2023. Venous duplex of lower extremities done this time shows acute DVT in bilateral proximal veins and acute superficial vein thrombosis in the right GSV. Risk and benefits of anticoagulants discussed and patient very concerned but agreed that we will start low-dose Eliquis 2.5 mg twice daily although not the therapeutic dose. Will check stool for occult blood and H&H the night. Discontinue Eliquis if platelet count drops less than 50,000 or hemoglobin less than 8 g%/ 4. CAD status post CABG: Patient had most recent cardiac stent in December 2022. Hold Plavix . 5. Hypertension: On amlodipine and Lopressor. Blood pressure in normal range. 6. Dyslipidemia: Intolerant to statin and fenofibrate. Outpatient follow-up. 7. Hypothyroidism: On home dose Synthroid. 8. History of A-fib status post radiofrequency ablation: Twelve-lead EKG once done which shows normal sinus rhythm with PVCs and PACs 9. History of GI bleed: PPI twice daily. Living will/advanced directive/end of life care: Patient does have living will or advanced directive. Next to kin is his daughter. After discussion of benefits/risks procedures involved with full code, DNR CC arrest and DNR CC, the patient opted for full code. Patient does want artificial life support including intubation, tube feed, ventilator and/chest compression, central venous catheter, vasopressor and DC shock if needed Total time spent in [id number] encounter in discussion of advanced directive 17 minutes. Laboratory Results 01/05/24 06:55: WBC 9.0, RBC 4.35 L, Hgb 13.8, Hct 42.1, MCV 96.8 H, MCH 31.7, MCHC 32.8, RDW Std Deviation 51.1 H, RDW Coeff of [place] 14.4, Plt Count 199, MPV 9.9, Immature Gran % (Auto) 0.800, Neut % (Auto) 75.5 H, Lymph % (Auto) 13.9 L, [place] % (Auto) 9.3, Eos % (Auto) 0.2, Baso % (Auto) 0.3, Absolute Neuts (auto) 6.8, Absolute Lymphs (auto) 1.26, Nucleated RBC % 0, Sodium 141, Potassium 4.9, Chloride 110 H, Carbon Dioxide 24.0, Anion Gap 7, BUN 53 H, Creatinine 2.66 H, Estim Creat Clear Calc 22.99, Est GFR (MDRD) Af Amer 30 L, Est GFR (MDRD) Non-Af 25 L, BUN/Creatinine Ratio 19.9, Glucose 116 H, Uric Acid 10.3 H, Calcium 9.4, Phosphorus 4.5, Magnesium 2.6, Total Bilirubin 1.40 H, AST 12 L, ALT 24, Alkaline Phosphatase 63, Total Creatine Kinase 44, Troponin I High Sens 6, B- Natriuretic Peptide 84.8, Total Protein 6.8, Albumin 3.6, Globulin 3.2, Albumin/Globulin Ratio 1.1 01/05/24 07:55: Urine Color Yellow, Urine Clarity Clear, Urine pH 5.0, Ur Specific [place] 1.010, Urine Protein 15 H, Urine Glucose (UA) Normal, Urine Ketones Negative, Urine Occult Blood 250 H, Urine Nitrite Negative, Urine Bilirubin Negative, Urine Urobilinogen Normal, Ur Leukocyte Esterase 25 H, Urine RBC 25-50 SEEN, Urine WBC 0-5 SEEN, Ur Squamous Epith Cells 0-5 SEEN, Urine Bacteria RARE, Hyaline Casts 0-5 SEEN, Urine Mucus 1+ Clinical Impression(s) from Imaging Studies Chest X-Ray 01/05/24 07:08 IMPRESSION: No acute cardiopulmonary abnormality. Venous Doppler Study 01/05/24 09:25 Interpretation Summary Acute deep vein thrombosis is noted in the right distal femoral vein, popliteal vein, tibioperoneal trunk vein. Acute deep vein thrombosis is noted in the left common femoral vein, femoral vein, popliteal vein, tibioperoenal trunk vein, posterior tibial vein, peroneal vein Acute superficial vein thrombosis is noted in the right great saphenous vein. Charges/Coding Visit Charges Inpatient E&M: 96334 Init Hosp L3 Procedures Hospitalists Procedures: 40775 Advncd Care Plan 30 Min
--- NOTE | 2024-01-05 09:25 | VDLE_ITS ---
Reason For Study: SWELLING RIGHT LEFT GSV is normal. CFV, FV, POPV, T-P TRUNK, PTV, PERV & GSV are CFV is compressible, spontaneous, phasic, DILATED & NONCOMPRESSIBLE. competent and demonstrates normal augmentation. PTV is compressible. RT PerV is compressible. FV PROXIMAL/MID segments are compressible with flow noted. FV DISTAL, POP V, T-P TRUNK DILATED & NONCOMPRESSIBLE. Procedure This is a venous duplex using B-mode, color flow and spectral Doppler. Exam performed portable in ED. The study was technically difficult. A preliminary report was called and/or faxed to DR. Davis & ED. VL/Venous Duplex US - Nikita Extrem Interpretation Summary Acute deep vein thrombosis is noted in the right distal femoral vein, popliteal vein, tibioperoneal trunk vein. Acute deep vein thrombosis is noted in the left common femoral vein, femoral ve in, popliteal vein, tibioperoenal trunk vein, posterior tibial vein, peroneal vein Acute superficial vein thrombosis is noted in the right great saphenous vein. Ordering Physician: Jaya Almanza Referring Physician: Jose Hooks Chi Performed By: Sharifa Sánchez, JEAN CARLOS, RVT
[2024-01-05 10:05] LABS: Magnesium 2.6 mg/dL (1.6-2.6); Phosphorus 4.5 mg/dL (2.5-4.9)
[2024-01-05 10:09] LABS: CPK Total, Creatine Kinase 44 U/L (39-308); Uric Acid 10.3 mg/dL (3.5-7.2)
[2024-01-05] MEDS: 0.9% Saline Lock 10 ML Syringe IV (11:53)
[2024-01-05] MEDS: 0.9% Normal Saline (1000mL) 1,000 ML 100 ML IV ×2 (11:53→22:00)
[2024-01-05] MEDS: APIXABAN 2.5 MG TABLET (WCH) PO ×2 (12:07→21:10)
[2024-01-05] MEDS: Senna/Docusate Sodium 1 Tablet 2 TABLET PO ×2 (12:07→21:10)
[2024-01-05] MEDS: Pantoprazole Sodium 40 MG Tablet PO ×2 (15:56→21:10)
[2024-01-05 17:04] LABS: Osmolality, Urine 451 mOsm/KG
[2024-01-05 17:05] LABS: Urine Sodium 86 mmol/L (Not Establ.)
[2024-01-05 17:06] LABS: Protein, Urine (Random) 13.5 mg/dL (<11.9); Protein:Creat Ratio 197 mg/g CRE (0-200)
[2024-01-05 19:51] LABS: Hematocrit 38.3 % (40-54); Hemoglobin 12.8 g/dL (13.0-16.5)
[2024-01-05] MEDS: Metoprolol Tartrate 50 MG Tablet PO (21:09)
[2024-01-06] VITALS (8 sets, daily range): BP systolic 107–134; BP diastolic 71–79; PULSE 58–88; RESP 15–16; TEMP 36.6–37.1; O2SAT 97–98
[2024-01-06] MEDS: Levothyroxine 88 MCG Tablet PO (05:35)
[2024-01-06 06:03] LABS: Absolute Lymphocyte Count 0.97 X10^3/uL (0.83-4.51); Absolute Neutrophil Count 6.2 X10^3/uL (2.0-7.7); Basophil# 0.04 X10^3/uL; Basophil% 0.5 % (0-1); Eosinophil# 0.04 X10^3/uL; Eosinophils% 0.5 % (0-5); Hematocrit 35.5 % (40-54); Hemoglobin 11.6 g/dL (13.0-16.5); Lymphocyte # 0.97 X10^3/ul (0.83-4.51); Mean Corp Hgb Conc 32.7 g/dL (32-36); Mean Corpuscular Hgb 31.5 pg (27.0-32.0); Mean Corpuscular Volume 96.5 fL (80-94); Mean Platelet Vol. 10.1 fl (6.2-12.0); Monocyte% 9.9 % (0-10); NRBC Flagged by Analyzer 0 % (0-5); Neutrophil # 6.19 X10^3/uL (2.7-7.7); Neutrophil % 76.4 % (47-70); Platelet Count 163 K/mm3 (150-450); RBC Distribution Width CV 14.4 % (11.6-14.6); RBC Distribution Width SD 50.6 fl (35.1-43.9); Red Blood Count 3.68 M/mm3 (4.6-6.2); White Blood Count 8.1 K/mm3 (4.4-11.0)
[2024-01-06 06:40] LABS: Anion Gap 8 (5-15); BUN 52 mg/dL (7-18); BUN/Creat Ratio 29.9 RATIO (10-20); Calcium,Total 8.4 mg/dL (8.5-10.1); Chloride 111 mmol/L (98-107); Creatinine, Serum 1.74 mg/dL (0.70-1.30); EST Glomerular Filtration Rate 40 mL/min (>60); Est Glom Filt Rate - Afr Amer 49 mL/min (>60); Estimated Creatinine Clearance 35.04 ml/min; Glucose 86 mg/dL (74-106); Potassium 4.2 mmol/L (3.5-5.1); Sodium Level 141 mmol/L (136-145); Thyroid Stim Hormone (TSH) 1.08 uIU/mL (0.358-3.74)
[2024-01-06] MEDS: Aspirin E.C. 81 MG Tablet PO (08:53)
[2024-01-06] MEDS: APIXABAN 2.5 MG TABLET (WCH) PO (08:53)
[2024-01-06] MEDS: Metoprolol Tartrate 50 MG Tablet PO ×2 (08:54→22:26)
[2024-01-06] MEDS: Cholecalciferol (VIT D3) 25 MCG TABLET (1,000 UNITS) PO (08:55)
[2024-01-06] MEDS: amLODIPine 2.5 MG Tablet PO (08:55)
[2024-01-06] MEDS: Pantoprazole Sodium 40 MG Tablet PO ×2 (08:55→22:28)
[2024-01-06] MEDS: Senna/Docusate Sodium 1 Tablet 2 TABLET PO ×2 (08:55→22:28)
[2024-01-06 09:37] LABS: Urine Chloride 123 mmol/L (Not Establ.); Urine Potassium 49.9 mmol/L (Not Establ.)
--- NOTE | 2024-01-06 09:44 | PCM.PN.HOSP ---
Reason for Visit Reason for Visit: Diagnoses Acute kidney failure, unspecified (01/05/24) Objective Data Objective Data Vital Signs: Vital Signs Temp Pulse Resp BP Pulse Ox O2 Del Method 97.9 F 68 15 118/79 97 Room Air 01/06/24 02:56 01/06/24 08:54 01/06/24 02:56 01/06/24 08:54 01/06/24 08:40 01/06/24 07:52 Oxygen Delivery Method Room Air Weight: 164 lb 0.383 oz Body Mass Index (BMI) 22.8 Intake & Output: Intake and Output for Last 24 Hours 01/04/24 01/05/24 01/06/24 23:59 23:59 23:59 Intake Total 2000 / 2400 600 / 600 Output Total 200 / 650 750 / 750 Balance 1800 / 1750 -150 / -150 Lab / Micro Data 01/06/24 05:05 01/06/24 05:05 Labs: Laboratory Results - last 24 hr 01/05/24 06:55: Uric Acid 10.3 H, Phosphorus 4.5, Magnesium 2.6, Total Creatine Kinase 44 01/05/24 16:20: Urine Osmolality 451, U Random Total Protein 13.5 H, Ur Random Sodium 86, Urine Creatinine 68.70, Protein/Creatinin Ratio 197, Urine Potassium 49.9, Urine Chloride 123 01/05/24 19:35: Hgb 12.8 L, Hct 38.3 L 01/06/24 05:05: WBC 8.1, RBC 3.68 L, Hgb 11.6 L, Hct 35.5 L, MCV 96.5 H, MCH 31.5, MCHC 32.7, RDW Std Deviation 50.6 H, RDW Coeff of Sukumar 14.4, Plt Count 163, MPV 10.1, Immature Gran % (Auto) 0.700, Neut % (Auto) 76.4 H, Lymph % (Auto) 12.0 L, [place] % (Auto) 9.9, Eos % (Auto) 0.5, Baso % (Auto) 0.5, Absolute Neuts (auto) 6.2, Absolute Lymphs (auto) 0.97, Nucleated RBC % 0, Sodium 141, Potassium 4.2, Chloride 111 H, Carbon Dioxide 22.0, Anion Gap 8, BUN 52 H, Creatinine 1.74 H, Estim Creat Clear Calc 35.04, Est GFR (MDRD) Af Amer 49 L, Est GFR (MDRD) Non-Af 40 L, BUN/Creatinine Ratio 29.9 H, Glucose 86, Calcium 8.4 L, TSH 1.08 Radiography Diagnostic Testing: Radiology Impression Venous Doppler Study 01/05/24 09:25 Interpretation Summary Acute deep vein thrombosis is noted in the right distal femoral vein, popliteal vein, tibioperoneal trunk vein. Acute deep vein thrombosis is noted in the left common femoral vein, femoral vein, popliteal vein, tibioperoenal trunk vein, posterior tibial vein, peroneal vein Acute superficial vein thrombosis is noted in the right great saphenous vein. Ordering Physician: Jaya Almanza Referring Physician: Jose Hooks Chi Performed By: Sharifa Sánchez, JOSE LUISCS, RVT Physical Exam Narrative General: Alert, Oriented x3, Cooperative HEENT: Atraumatic, PERRLA, EOMI, Normocephalic Oral: Oral mucosa moist. No Gingival or Mucosal Lesions/ Ulcerations Neck: Supple, No JVD, Negative Carotid Bruits Chest wall/Lungs: Air entry diminished in bilateral lung bases. No crepitation/rhonchi Cardiovascular: Open heart surgery scar. Normal S1, Normal S2, soft systolic murmur Abdomen: Bowel Sounds Present, Soft, Non Tender, Non-Distended : No dysuria. No renal angle tenderness. No suprapubic tenderness. Extremities: Left leg swollen more than right. Capillary Refill Less than 3 Seconds Skin: No rashes, No breakdown Musculoskeletal: Mild tenderness in left leg near calf. Bilateral DVT. No bony or joint tenderness. ROM intact Neurological: Cranial nerves II-XII grossly intact, DTR 2+/4. No acute focal neurological deficit. Psych/Mental Status: Flat affect Assessment & Plan Assessment/Plan (1) Acute kidney injury: PLAN: Plan This is a 83-year-old gentleman being admitted for generalized fatigue and weakness. Found to be BART 1. BART most likely due to diuretic on CKD stage IIIa: [facility]. Started on IV fluid normal saline 100 mill per hour for 2 L. Furosemide/diuretics discontinued. UA shows occult blood 250, protein 15. RBC 25-50 cells, WBC 0-5 sensitively 25. Nitrite negative. Urine electrolytes and indices ordered. Urine culture ordered. Chest x-ray no acute abnormality 01/05: Improvement in creatinine to 1.74. Renal and bladder ultrasound is ordered. Urine culture shows no growth. Urine osmolarity 451, total protein 13.5, urine sodium 86, creatinine 68.7, potassium 50 and chloride 123 suggestive of recent diuretic use. [employer]k Clerk further consulted. 2. 2. Chronic BPH: Patient is stated he gets intermittent hematuria and had prostate surgery many years ago by Dr. Perdomo and used to follow Dr. Banda. Currently denies any decrease in urinary stream or force. Bladder scan every 4 hourly. Patient had cystoscopy in September 2023 for suspected prostate nodule but found to be BPH. Had transurethral section of the prostate. 3. Acute bilateral lower extremity DVT, left more than right with history of chronic DVT status post IVC filter: In the past patient could not tolerate anticoagulants. He had 3 units blood transfusion in the past and requiring admission in May 2023. Had IVC filter in June 03, 2023. Venous duplex of lower extremities done this time shows acute DVT in bilateral proximal veins, left tibioperoneal trunk, posterior tibial and peroneal veins and acute superficial vein thrombosis in the right GSV. Risk and benefits of anticoagulants discussed and patient very concerned but agreed that we will start low-dose Eliquis 2.5 mg twice daily although not the therapeutic dose. Will check stool for occult blood and H&H the night. Discontinue Eliquis if platelet count drops less than 50,000 or hemoglobin less than 8 g% 01/05: H&H did not show much drop. 11.6. Patient on Eliquis 2.5 mg twice daily although not appropriate for DVT dose but because of severe recent GI bleed and BART. Vascular surgery consulted for further opinion. Patient does not want to take full therapeutic dose for the fear of GI bleed and said it was a near situation last time. 4. CAD status post CABG: Patient had most recent cardiac stent in December 2022. Hold Plavix . 5. Hypertension: On amlodipine and Lopressor. Blood pressure in normal range. 6. Dyslipidemia: Intolerant to statin and fenofibrate. Outpatient follow-up. 7. Hypothyroidism: On home dose Synthroid. 8. History of A-fib status post radiofrequency ablation: Twelve-lead EKG once done which shows normal sinus rhythm with PVCs and PACs 9. History of GI bleed: PPI twice daily. Living will/advanced directive/end of life care: Patient does have living will or advanced directive. Next to kin is his daughter. After discussion of benefits/risks procedures involved with full code, DNR CC arrest and DNR CC, the patient opted for full code. Patient does want artificial life support including intubation, tube feed, ventilator and/chest compression, central venous catheter, vasopressor and DC shock if needed Microbiology Past 72 Hours 01/05/24 16:20 Urine, Clean Catch Urine Culture - Preliminary Culture exhibits no growth. Laboratory Results 01/05/24 16:20: Urine Osmolality 451, U Random Total Protein 13.5 H, Ur Random Sodium 86, Urine Creatinine 68.70, Protein/Creatinin Ratio 197, Urine Potassium 49.9, Urine Chloride 123 01/05/24 19:35: Hgb 12.8 L, Hct 38.3 L 01/06/24 05:05: WBC 8.1, RBC 3.68 L, Hgb 11.6 L, Hct 35.5 L, MCV 96.5 H, MCH 31.5, MCHC 32.7, RDW Std Deviation 50.6 H, RDW Coeff of Sukumar 14.4, Plt Count 163, MPV 10.1, Immature Gran % (Auto) 0.700, Neut % (Auto) 76.4 H, Lymph % (Auto) 12.0 L, [place] % (Auto) 9.9, Eos % (Auto) 0.5, Baso % (Auto) 0.5, Absolute Neuts (auto) 6.2, Absolute Lymphs (auto) 0.97, Nucleated RBC % 0, Sodium 141, Potassium 4.2, Chloride 111 H, Carbon Dioxide 22.0, Anion Gap 8, BUN 52 H, Creatinine 1.74 H, Estim Creat Clear Calc 35.04, Est GFR (MDRD) Af Amer 49 L, Est GFR (MDRD) Non-Af 40 L, BUN/Creatinine Ratio 29.9 H, Glucose 86, Calcium 8.4 L, TSH 1.08 Laboratory Results 01/05/24 06:55: WBC 9.0, RBC 4.35 L, Hgb 13.8, Hct 42.1, MCV 96.8 H, MCH 31.7, MCHC 32.8, RDW Std Deviation 51.1 H, RDW Coeff of Sukumar 14.4, Plt Count 199, MPV 9.9, Immature Gran % (Auto) 0.800, Neut % (Auto) 75.5 H, Lymph % (Auto) 13.9 L, [place] % (Auto) 9.3, Eos % (Auto) 0.2, Baso % (Auto) 0.3, Absolute Neuts (auto) 6.8, Absolute Lymphs (auto) 1.26, Nucleated RBC % 0, Sodium 141, Potassium 4.9, Chloride 110 H, Carbon Dioxide 24.0, Anion Gap 7, BUN 53 H, Creatinine 2.66 H, Estim Creat Clear Calc 22.99, Est GFR (MDRD) Af Amer 30 L, Est GFR (MDRD) Non-Af 25 L, BUN/Creatinine Ratio 19.9, Glucose 116 H, Uric Acid 10.3 H, Calcium 9.4, Phosphorus 4.5, Magnesium 2.6, Total Bilirubin 1.40 H, AST 12 L, ALT 24, Alkaline Phosphatase 63, Total Creatine Kinase 44, Troponin I High Sens 6, B-Natriuretic Peptide 84.8, Total Protein 6.8, Albumin 3.6, Globulin 3.2, Albumin/Globulin Ratio 1.1 01/05/24 07:55: Urine Color Yellow, Urine Clarity Clear, Urine pH 5.0, Ur Specific [place] 1.010, Urine Protein 15 H, Urine Glucose (UA) Normal, Urine Ketones Negative, Urine Occult Blood 250 H, Urine Nitrite Negative, Urine Bilirubin Negative, Urine Urobilinogen Normal, Ur Leukocyte Esterase 25 H, Urine RBC 25-50 SEEN, Urine WBC 0-5 SEEN, Ur Squamous Epith Cells 0-5 SEEN, Urine Bacteria RARE, Hyaline Casts 0-5 SEEN, Urine Mucus 1+ Clinical Impression(s) from Imaging Studies Chest X-Ray 01/05/24 07:08 IMPRESSION: No acute cardiopulmonary abnormality. Venous Doppler Study 01/05/24 09:25 Interpretation Summary Acute deep vein thrombosis is noted in the right distal femoral vein, popliteal vein, tibioperoneal trunk vein. Acute deep vein thrombosis is noted in the left common femoral vein, femoral vein, popliteal vein, tibioperoenal trunk vein, posterior tibial vein, peroneal vein Acute superficial vein thrombosis is noted in the right great saphenous vein. Charges/Coding Addendum Addendum: Total time of the visit including total time spent in counseling or coordination of care, (more than 50% of the total time, spent in obtaining medical information from nurses and other ancillary care providers,explaining to the patient about labs, imaging, diagnosis and management of active complex medical conditions), discussion with vascular surgeon and gum cook, diffuse bilateral DVT status post IVC filter, review of labs and imaging is 40 minutes. Visit Charges Inpatient E&M: 37385 Subs Hosp L3
--- NOTE | 2024-01-06 10:19 | US_ITS ---
EXAM: US RETROPERITONEAL LIMITED, RENAL CLINICAL INDICATION: macrina TECHNIQUE: Limited grayscale and color Doppler sonographic evaluation of the retroperitoneum was performed. COMPARISON: Abdominal ultrasound, 10-[address] chest abdomen pelvis, 05/21/2023. FINDINGS: RIGHT KIDNEY: There are multiple simple cysts of the right kidney for which no follow-up is indicated. No hydronephrosis. No shadowing calculus. No perinephric collection is demonstrated. The right kidney measures 10.3 cm in length. LEFT KIDNEY: There are multiple simple cyst of the left kidney for which no follow-up is indicated. No hydronephrosis. No shadowing calculus. No perinephric collection is demonstrated. The left kidney measures 12.5 cm in length. BLADDER: No significant findings. No urinary bladder wall thickening is identified. OTHER FINDINGS: The prostate measures 4.0 x 4.3 x 3.2 cm. US/Kidney and Bladder IMPRESSION: 1. Bilateral renal cysts for which no follow-up is indicated. No hydronephrosis or other acute renal pathology. 2. The prostate measures approximately 30 mL. Electronically Signed: Abdirahman Liu DO at 20:55 EDT ,
--- NOTE | 2024-01-06 12:13 | CON.PCM.RE_ITS ---
Assessment & Plan Assessment/Plan (1) Acute kidney injury: PLAN: likely due to prerenal event. Creatinine improved with iv fluids. Agree with holding lasix. BNP low at 84. Cannot r/o renal vein thrombosis. Currently nonoliguric so doubt. Await renal US (2) CKD stage 3a, GFR 45-59 ml/min: PLAN: baseline creatinine 1.2 (3) Deep vein thrombosis (DVT) of iliac vein: QUALIFIERS: Chronicity: acute Laterality: left Qualified Code(s): I82.422 - Acute embolism and thrombosis of left iliac vein (4) Bilateral lower extremity edema: PLAN: due to DVT agree with holding diuretics HPI Consult Data Date of Consult: 01/06/24 HPI Narrative Reason for Consultation: BART on CKD stage 3. HPI Narrative: KULWANT ANDRADE, is a 83 M who presents with increased shortness of breath and leg edema since Thursday. He was diagnosed with acute DVT BLE on Eliquis. He was on lasix at home. Creatinine increased from baseline 1.2 to 2.66 then 1.74 today with iv fluids. He travelled on a long road trip in [facility] and recently to [place]. He has a history of DVT and PE s/p IVC filter and recently discontinued plavix. He has a history of GI bleed on blood thinners. His dyspnea improved. Legs still swolle. Denied chest pain, fever, chills, cough. [facility] Medical History Wears glasses Thyroid disease History of steroid therapy Prostate disease Bladder disease High cholesterol History of echocardiogram History of stress test Cardiology follow-up encounter H/O Legionnaire's disease (~2019) [place] filter in place Kidney stones GI bleed Pulmonary embolism Coronary artery disease TIA (transient ischemic attack) Postoperative atrial fibrillation Atherosclerotic heart disease of [place] coronary artery without angina pectoris CAD (coronary artery disease) Pulmonary nodule D-dimer, elevated Edema Dyspnea on exertion Essential hypertension BPH (benign prostatic hyperplasia) Nasal sinus polyp DDD (degenerative disc disease) Fibromyalgia Syncope White coat syndrome with hypertension 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 Hemorrhoid Premature ventricular contraction [place] Cardiomyopathy in other diseases classified elsewhere Hyperlipidemia Premature atrial contractions Hypothyroid Acid reflux HTN (hypertension) Home Medications ?Medication ?Instructions ?Recorded ?Last Taken ?Type cholecalciferol (vitamin D3) 25 25 mcg PO DAILY SUPPLEMENT 12/25/21 01/04/24 History mcg (1,000 unit) capsule amlodipine 2.5 mg tablet 2.5 mg PO DAILY BLOOD PRESSURE #60 01/05/23 01/04/24 Rx tabs clopidogrel 75 mg tablet 75 mg PO DAILY BLOOD THINNER #30 01/05/23 01/04/24 Rx tabs blood pressure monitor #1 ea 01/15/23 Unknown Rx metoprolol tartrate 50 mg tablet 50 mg PO BID BLOOD PRESSURE #60 02/24/23 01/04/24 Rx tabs levothyroxine 88 mcg tablet 88 mcg PO DAILY THYROID 05/29/23 01/04/24 History aspirin 81 mg tablet,delayed 81 mg PO DAILY Anticoagulant 09/30/23 01/04/24 History release (Adult Aspirin Regimen) diphenhydramine 25 2 tab PO QHS Sleep 09/30/23 01/04/24 History mg-acetaminophen 500 mg tablet (Tylenol PM Extra Strength) pantoprazole 40 mg tablet,delayed 40 mg PO DAILY ACID REFUX 09/30/23 01/04/24 History release furosemide 40 mg tablet (Lasix) 40 mg PO DAILY Water retention #30 12/31/23 01/05/24 Rx tabs Allergy/AdvReac Type Severity Reaction Status Date / Time erythromycin base Allergy Hives Verified 01/05/24 06:40 amoxicillin (From Augmentin) AdvReac Severe Itching Verified 01/05/24 06:40 atorvastatin AdvReac Severe myalgias Verified 01/05/24 06:40 clavulanic acid (From AdvReac Severe Itching Verified 01/05/24 06:40 Augmentin) fenofibrate (From Tricor) AdvReac Severe myalgias Verified 01/05/24 06:40 levofloxacin (From Levaquin) AdvReac Unknown Unknown Verified 01/05/24 06:40 Family History Father CVA (cerebral vascular accident) Hypertension Heart disease Mother CAD (coronary artery disease) Brother Hypertension Brother CAD (coronary artery disease) Hypertension Sister Hypertension Sister Patent foramen ovale Sister Hypertension Lung cancer Other Dyspnea on exertion Surgical History History of cardiac catheterization (~02/22/21) Hx of CABG (~2018) History of coronary artery stent placement History of placement of stent in LAD coronary artery (01/05/23) History of coronary artery bypass graft x 3 (~02/26/21) History of radiofrequency ablation procedure for cardiac arrhythmia (~10/2002) History of cholecystectomy Hx of appendectomy History of kidney surgery (~2001) History of back surgery (~1999) H/O hemorrhoidectomy Social History household members: none Smoking Status: Never smoker alcohol intake: never substance use type: does not use ROS Constitutional Constitutional: Reports weakness; Denies chills or fever(s) ENT HEENT: Denies nasal congestion Cardiovascular Cardiovascular: Denies chest pain, diaphoresis or syncope Respiratory/Chest Respiratory/Chest: Reports dyspnea on exertion; Denies dry cough or hemoptysis Gastrointestinal Gastrointestinal: Denies abdominal pain, anorexia, diarrhea, nausea or vomiting Genitourinary Genitourinary: Denies change in urinary stream Musculoskeletal Musculoskeletal: Reports other Details: increased leg swelling Neurologic Neurologic: Reports weakness; Denies syncope or tremor(s) Psychiatric Psychiatric: Denies anxiety or confusion Endocrine Endocrinology: Denies fatigue Hematologic/Lymphatic Hematologic/Lymphatic: Reports anemia Physical Exam Const alert, oriented x3 and no apparent distress General Appearance: well developed HEENT normocephalic Neck supple Resp clear to auscultation bilaterally Cardio regular rate GI non-tender and non-distended Auscultation: normoactive bowel sounds Palpation: soft Extremity General Extremity: edema bilateral lower extremity Details: moderate Neuro CN's II-XII intact bilaterally Psych cooperative Lab / Micro Data 01/06/24 05:05 01/06/24 05:05 Labs: Laboratory Results - last 24 hr 01/05/24 16:20: Urine Osmolality 451, U Random Total Protein 13.5 H, Ur Random Sodium 86, Urine Creatinine 68.70, Protein/Creatinin Ratio 197, Urine Potassium 49.9, Urine Chloride 123 01/05/24 19:35: Hgb 12.8 L, Hct 38.3 L 01/06/24 05:05: WBC 8.1, RBC 3.68 L, Hgb 11.6 L, Hct 35.5 L, MCV 96.5 H, MCH 31.5, MCHC 32.7, RDW Std Deviation 50.6 H, RDW Coeff of Sukumar 14.4, Plt Count 163, MPV 10.1, Immature Gran % (Auto) 0.700, Neut % (Auto) 76.4 H, Lymph % (Auto) 12.0 L, [place] % (Auto) 9.9, Eos % (Auto) 0.5, Baso % (Auto) 0.5, Absolute Neuts (auto) 6.2, Absolute Lymphs (auto) 0.97, Nucleated RBC % 0, Sodium 141, Potassium 4.2, Chloride 111 H, Carbon Dioxide 22.0, Anion Gap 8, BUN 52 H, C reatinine 1.74 H, Estim Creat Clear Calc 35.04, Est GFR (MDRD) Af Amer 49 L, Est GFR (MDRD) Non-Af 40 L, BUN/Creatinine Ratio 29.9 H, Glucose 86, Calcium 8.4 L, TSH 1.08 Micro: Microbiology 01/05/24 16:20 Urine, Clean Catch Urine Culture - Preliminary Culture exhibits no growth.
--- NOTE | 2024-01-06 12:39 | CASEMGMT ---
SHENA GAMBINO Assessment Face to Face with patient for initial transition planning/care coordination assessment. RN CM introduced self and role at [facility], pt voices understanding. Pt is A&Ox4 and is resting comfortably in bed and is calm. Pt daughter (Luna) at bedside. Care providers, pharmacy, and demographics verified. Admitting dx: BART PCP: Jessee Specialists: ALLISON Preferred Pharmacy: [facility] Insurance: [employer] [facility] Prescription Benefit: Yes LNOK: Luna Martinez (Daughter), Jackie Penny (Daughter - Lives in [place]) Living Arrangements: Pt lives alone in a single story home with a BM and a ramp to enter through the front and 2 steps to enter through the garage. Pt states that the ramp was built for his prior to her passing and that the pt uses the steps in the garage to enter. Pt daughter (Luna) lives next door. ADLs/IADLs: Ind Transportation: Self, Daughter DME: Cane and walker at home but the pt states that he does not use. Walk-in shower with GB and seat. Raised toilet seat. BP Monitor. HHC/SNF: denies SNF history or needs. Hx with [facility] HH Pt?s goal: Home Plan: Home no needs e/f possible OP therapy. Pt was cleared by PT and OT. 6-Click is 23. Pt denies the need for HHC. Pt states that he may be interested in attending OP Tx but wants to wait and see how he progresses in the hospital first. Pt states that he walks at home and also has an exercising machine. Pt states that he mows his 2 acre lawn as well. Nephro and vacular are consulted. CM to follow. Mesha Rubin RN, CM
--- NOTE | 2024-01-06 17:27 | EX.PCM.CON.S ---
Assessment & Plan Assessment/Plan (1) Deep vein thrombosis (DVT) of iliac vein: QUALIFIERS: Chronicity: acute Laterality: left Qualified Code(s): I82.422 - Acute embolism and thrombosis of left iliac vein PLAN: -bilateral DVT, left up to iliac veins -fairly symptomatic -reasonable to trial anticoagulation in effort to decrease thrombus burden -not much of provoking factors; might be reasonable for longterm prophylactic dose anticoagulation -filter protective in events unable to tolerate anticaogulation HPI Consult Data Date of Consult: 01/06/24 HPI Narrative HPI Narrative: KULWANT ANDRADE, is a 83 M who presents with bilateral edema, left>right. Initially had some symptoms starting in early November that improved with compression. He travels fairly frequently, driving to [facility] and [place]. About a week ago he noticed some worsening of his edema not related to any travel. Over this past weekend he was traveling and after getting home he was more fatigued, SOB, unable to walk to get mail. He presented to the hospital and was found to have BART, bilateral extensive DVT. He had IVC filter placed in Jun 2023 due to GI bleed with recent DVT. Has been off anticoagulation since that time. No recurrence of GI bleeds. [facility] Medical History Wears glasses Thyroid disease History of steroid therapy Prostate disease Bladder disease High cholesterol History of echocardiogram History of stress test Cardiology follow-up encounter H/O Legionnaire's disease (~2018) [place] filter in place Kidney stones GI bleed Pulmonary embolism Coronary artery disease TIA (transient ischemic attack) Postoperative atrial fibrillation Atherosclerotic heart disease of [place] coronary artery without angina pectoris CAD (coronary artery disease) Pulmonary nodule D-dimer, elevated Edema Dyspnea on exertion Essential hypertension BPH (benign prostatic hyperplasia) Nasal sinus polyp DDD (degenerative disc disease) Fibromyalgia Syncope White coat syndrome with hypertension 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 Hemorrhoid Premature ventricular contraction [place] Cardiomyopathy in other diseases classified elsewhere Hyperlipidemia Premature atrial contractions Hypothyroid Acid reflux HTN (hypertension) Home Medications ?Medication ?Instructions ?Recorded ?Last Taken ?Type cholecalciferol (vitamin D3) 25 25 mcg PO DAILY SUPPLEMENT 12/25/21 01/04/24 History mcg (1,000 unit) capsule amlodipine 2.5 mg tablet 2.5 mg PO DAILY BLOOD PRESSURE #60 01/05/23 01/04/24 Rx tabs clopidogrel 75 mg tablet 75 mg PO DAILY BLOOD THINNER #30 01/05/23 01/04/24 Rx tabs blood pressure monitor #1 ea 01/15/23 Unknown Rx metoprolol tartrate 50 mg tablet 50 mg PO BID BLOOD PRESSURE #60 02/24/23 01/04/24 Rx tabs levothyroxine 88 mcg tablet 88 mcg PO DAILY THYROID 05/29/23 01/04/24 History aspirin 81 mg tablet,delayed 81 mg PO DAILY Anticoagulant 09/30/23 01/04/24 History release (Adult Aspirin Regimen) diphenhydramine 25 2 tab PO QHS Sleep 09/30/23 01/04/24 History mg-acetaminophen 500 mg tablet (Tylenol PM Extra Strength) pantoprazole 40 mg tablet,delayed 40 mg PO DAILY ACID REFUX 09/30/23 01/04/24 History release furosemide 40 mg tablet (Lasix) 40 mg PO DAILY Water retention #30 12/31/23 01/05/24 Rx tabs Allergy/AdvReac Type Severity Reaction Status Date / Time erythromycin base Allergy Hives Verified 01/05/24 06:40 amoxicillin (From Augmentin) AdvReac Severe Itching Verified 01/05/24 06:40 atorvastatin AdvReac Severe myalgias Verified 01/05/24 06:40 clavulanic acid (From AdvReac Severe Itching Verified 01/05/24 06:40 Augmentin) fenofibrate (From Tricor) AdvReac Severe myalgias Verified 01/05/24 06:40 levofloxacin (From Levaquin) AdvReac Unknown Unknown Verified 01/05/24 06:40 Family History Father CVA (cerebral vascular accident) Hypertension Heart disease Mother CAD (coronary artery disease) Brother Hypertension Brother CAD (coronary artery disease) Hypertension Sister Hypertension Sister Patent foramen ovale Sister Hypertension Lung cancer Other Dyspnea on exertion Surgical History History of cardiac catheterization (~02/22/21) Hx of CABG (~2019) History of coronary artery stent placement History of placement of stent in LAD coronary artery (01/05/23) History of coronary artery bypass graft x 3 (~02/26/21) History of radiofrequency ablation procedure for cardiac arrhythmia (~10/2002) History of cholecystectomy Hx of appendectomy History of kidney surgery (~2001) History of back surgery (~1999) H/O hemorrhoidectomy Social History household members: none Smoking Status: Never smoker alcohol intake: never substance use type: does not use ROS Constitutional Constitutional: Reports weakness; Denies chills, fever(s), frequent falls or lethargy Eyes Eyes: Denies blind spots, change in vision or loss of vision ENT HEENT: Denies bleeding gums, hoarseness or sore throat Cardiovascular Cardiovascular: Reports dyspnea on exertion, leg edema and weakness in extremities; Denies abdominal pain, bluish discoloration of hand/feet, chest pain with activity, claudication, cold extremities, cyanosis, erythema on extremities, irregular heart rhythm, leg ulcers or numbness in extremities Respiratory/Chest Respiratory/Chest: Denies cough, excessive phlegm production, shortness of breath at rest, shortness of breath with exertion or wheezing Gastrointestinal Gastrointestinal: Denies anorexia, change in stool character, constipation, diarrhea, melena or rectal bleeding Genitourinary Genitourinary: Denies dysuria or hematuria Musculoskeletal Musculoskeletal: Denies abnormal gait Integumentary Integumentary: Reports other Details: ; Denies erythema, non-healing lesions or wounds Neurologic Neurologic: Denies abnormal speech, focal weakness, headache(s), loss of vision, numbness, paresthesias or sensory deficit Hematologic/Lymphatic Hematologic/Lymphatic: Denies easy bleeding, easy bruising or lymphadenopathy Physical Exam Const alert, oriented x3, no apparent distress and healthy appearing General Appearance: cooperative; Negative for combative or lethargic Orientation / Consciousness: awake Exam Limitations: no limitations HEENT Head and Scalp: normocephalic and atraumatic Eyes EOMs intact bilaterally General Eye: normal appearance of both eyes Neck full ROM, no lymphadenopathy and thyroid normal General: trachea midline; Negative for lymphadenopathy or tenderness Thyroid: thyroid normal Resp normal respiratory effort and no use of accessory muscles Effort and Inspection: Negative for labored, stridor or audible wheezes Cardio regular rate and regular rhythm Cardio Narrative: +1 edema RLE, 2+ edema LLE Back/Spine Cervical Spine: cervical ROM normal Extremity full ROM, normal capillary refill and no clubbing, cyanosis or edema Skin no rashes or lesions noted and no wounds Neuro oriented x3, CN's II-XII intact bilaterally, no focal motor deficits and no sensory deficits noted Psych thought process normal, cooperative, affect normal, speech normal and activity/motor behavior normal Lab / Micro Data 01/06/24 05:05 01/06/24 05:05 Labs: Laboratory Results - last 24 hr 01/05/24 16:20: Urine Potassium 49.9, Urine Chloride 123 01/05/24 19:35: Hgb 12.8 L, Hct 38.3 L 01/06/24 05:05: WBC 8.1, RBC 3.68 L, Hgb 11.6 L, Hct 35.5 L, MCV 96.5 H, MCH 31.5, MCHC 32.7, RDW Std Deviation 50.6 H, RDW Coeff of Sukumar 14.4, Plt Count 163, MPV 10.1, Immature Gran % (Auto) 0.700, Neut % (Auto) 76.4 H, Lymph % (Auto) 12.0 L, [place] % (Auto) 9.9, Eos % (Auto) 0.5, Baso % (Auto) 0.5, Absolute Neuts (auto) 6.2, Absolute Lymphs (auto) 0.97, Nucleated RBC % 0, Sodium 141, Potassium 4.2, Chloride 111 H, Carbon Dioxide 22.0, Anion Gap 8, BUN 52 H, Creatinine 1.74 H, Estim Creat Clear Calc 35.04, Est GFR (MDRD) Af Amer 49 L, Est GFR (MDRD) Non-Af 40 L, BUN/Creatinine Ratio 29.9 H, Glucose 86, Calcium 8.4 L, TSH 1.08 Micro: Microbiology 01/05/24 16:20 Urine, Clean Catch Urine Culture - Preliminary Culture exhibits no growth. Charges/Coding Multi Select Codes Visit Charges Visit Charges: 73021 Init Hosp L3
[2024-01-06] MEDS: APIXABAN 5 MG TABLET PO (22:26)
[2024-01-07] VITALS (10 sets, daily range): BP systolic 104–133; BP diastolic 63–76; PULSE 61–74; RESP 15–18; TEMP 36.6–36.8; O2SAT 97–98; BMI 22.9
[2024-01-07] MEDS: Levothyroxine 88 MCG Tablet PO (06:09)
[2024-01-07 07:59] LABS: Anion Gap 5 (5-15); BUN 39 mg/dL (7-18); BUN/Creat Ratio 29.5 RATIO (10-20); Calcium,Total 8.4 mg/dL (8.5-10.1); Chloride 113 mmol/L (98-107); Creatinine, Serum 1.32 mg/dL (0.70-1.30); EST Glomerular Filtration Rate 55 mL/min (>60); Est Glom Filt Rate - Afr Amer 67 mL/min (>60); Estimated Creatinine Clearance 46.19 ml/min; Glucose 86 mg/dL (74-106); Potassium 4.4 mmol/L (3.5-5.1); Sodium Level 141 mmol/L (136-145)
--- NOTE | 2024-01-07 08:29 | PCM.PN.REN ---
Subjective Subjective breathing better, edema persists. Creatinine improved with iv fluids back to baseline. Tolerating Eliquis well without bleeding so far Objective Data Objective Data Vital Signs: Vital Signs Temp Pulse Resp BP Pulse Ox O2 Del Method 98.2 F 61 15 114/76 97 Room Air 01/07/24 03:17 01/07/24 03:17 01/07/24 03:19 01/07/24 03:17 01/07/24 03:19 01/07/24 03:19 Oxygen Delivery Method Room Air Weight: 74.4 kg Body Mass Index (BMI) 22.9 Intake & Output: Intake and Output for Last 24 Hours 01/05/24 01/06/24 01/07/24 23:59 23:59 23:59 Intake Total 2000 / 2400 3000 / 3000 Output Total 200 / 650 1800 / 2000 450 / 450 Balance 1800 / 1750 1200 / 1000 -450 / -450 Lab / Micro Data 01/07/24 06:58 01/07/24 06:58 Labs: Laboratory Results - last 24 hr 01/05/24 16:20: Urine Potassium 49.9, Urine Chloride 123 01/07/24 06:58: Sodium 141, Potassium 4.4, Chloride 113 H, Carbon Dioxide 23.0, Anion Gap 5, BUN 39 H, Creatinine 1.32 H, Estim Creat Clear Calc 46.19, Est GFR (MDRD) Af Amer 67, Est GFR (MDRD) Non-Af 55 L, BUN/Creatinine Ratio 29.5 H, Glucose 86, Calcium 8.4 L Micro: Microbiology 01/05/24 16:20 Urine, Clean Catch Urine Culture - Preliminary Culture exhibits no growth. Radiography Diagnostic Testing: Radiology Impression Renal Ultrasound 01/06/24 10:19 IMPRESSION: 1. Bilateral renal cysts for which no follow-up is indicated. No hydronephrosis or other acute renal pathology. 2. The prostate measures approximately 30 mL. Electronically Signed: Abdirahman Liu DO at 20:55 EDT , Physical Exam Const alert, oriented x3 and no apparent distress General Appearance: well developed HEENT normocephalic Neck supple Resp clear to auscultation bilaterally Cardio regular rate GI non-tender and non-distended Auscultation: normoactive bowel sounds Palpation: soft Extremity General Extremity: edema bilateral lower extremity Details: moderate Neuro CN's II-XII intact bilaterally Psych cooperative Assessment & Plan Assessment/Plan (1) Acute kidney injury: PLAN: likely due to prerenal event. Creatinine improved with iv fluids to 1.32 today. Agree with holding lasix. BNP low at 84. renal US bilateral multiple renal cysts (2) CKD stage 3a, GFR 45-59 ml/min: PLAN: baseline creatinine 1.2 (3) Deep vein thrombosis (DVT) of iliac vein: QUALIFIERS: Chronicity: acute Laterality: left Qualified Code(s): I82.422 - Acute embolism and thrombosis of left iliac vein PLAN: on Eliquis (4) Bilateral lower extremity edema: PLAN: due to DVT agree with holding diuretics
[2024-01-07 09:18] LABS: Absolute Lymphocyte Count 0.88 X10^3/uL (0.83-4.51); Absolute Neutrophil Count 4.7 X10^3/uL (2.0-7.7); Basophil# 0.02 X10^3/uL; Basophil% 0.3 % (0-1); Eosinophil# 0.03 X10^3/uL; Eosinophils% 0.5 % (0-5); Hematocrit 34.7 % (40-54); Hemoglobin 11.3 g/dL (13.0-16.5); Lymphocyte # 0.88 X10^3/ul (0.83-4.51); Lymphocyte % 13.8 % (19-41); Mean Corp Hgb Conc 32.6 g/dL (32-36); Mean Corpuscular Hgb 31.7 pg (27.0-32.0); Mean Corpuscular Volume 97.2 fL (80-94); Monocyte# 0.67 X10^3/uL; Monocyte% 10.5 % (0-10); NRBC Flagged by Analyzer 0 % (0-5); Neutrophil # 4.74 X10^3/uL (2.7-7.7); Neutrophil % 74.1 % (47-70); Platelet Count 174 K/mm3 (150-450); RBC Distribution Width CV 14.1 % (11.6-14.6); RBC Distribution Width SD 50.3 fl (35.1-43.9); Red Blood Count 3.57 M/mm3 (4.6-6.2); White Blood Count 6.4 K/mm3 (4.4-11.0)
[2024-01-07] MEDS: Pantoprazole Sodium 40 MG Tablet PO ×2 (10:51→21:35)
[2024-01-07] MEDS: Cholecalciferol (VIT D3) 25 MCG TABLET (1,000 UNITS) PO (10:51)
[2024-01-07] MEDS: Senna/Docusate Sodium 1 Tablet 2 TABLET PO ×2 (10:51→21:35)
[2024-01-07] MEDS: amLODIPine 2.5 MG Tablet PO (10:51)
[2024-01-07] MEDS: Metoprolol Tartrate 50 MG Tablet PO ×2 (10:51→21:35)
[2024-01-07] MEDS: APIXABAN 5 MG TABLET PO ×2 (10:57→21:35)
--- NOTE | 2024-01-07 13:25 | PN.HOSP_ITS ---
Reason for Visit Reason for Visit: Diagnoses Acute embolism and thrombosis of left iliac vein (01/05/24) Acute kidney failure, unspecified (01/05/24) Objective Data Objective Data Vital Signs: Vital Signs Temp Pulse Resp BP Pulse Ox O2 Del Method 98.3 F 74 18 124/64 H 97 Room Air 01/07/24 09:00 01/07/24 10:51 01/07/24 10:00 01/07/24 10:51 01/07/24 12:15 01/07/24 12:15 Oxygen Delivery Method Room Air Weight: 164 lb 0.383 oz Body Mass Index (BMI) 22.9 Intake & Output: Intake and Output for Last 24 Hours 01/05/24 01/06/24 01/07/24 23:59 23:59 23:59 Intake Total 2000 / 2400 3000 / 3000 800 / 800 Output Total 200 / 650 1800 / 2000 1150 / 1150 Balance 1800 / 1750 1200 / 1000 -350 / -350 Lab / Micro Data 01/07/24 06:58 01/07/24 06:58 Labs: Laboratory Results - last 24 hr 01/07/24 06:58: WBC 6.4, RBC 3.57 L, Hgb 11.3 L, Hct 34.7 L, MCV 97.2 H, MCH 31.7, MCHC 32.6, RDW Std Deviation 50.3 H, RDW Coeff of Sukumar 14.1, Plt Count 174, MPV 10.0, Immature Gran % (Auto) 0.800, Neut % (Auto) 74.1 H, Lymph % (Auto) 13.8 L, Gilchrist % (Auto) 10.5 H, Eos % (Auto) 0.5, Baso % (Auto) 0.3, Absolute Neuts (auto) 4.7, Absolute Lymphs (auto) 0.88, Nucleated RBC % 0, Sodium 141, Potassium 4.4, Chloride 113 H, Carbon Dioxide 23.0, Anion Gap 5, BUN 39 H, Creatinine 1.32 H, Estim Creat Clear Calc 46.19, Est GFR (MDRD) Af Amer 67, Est GFR (MDRD) Non-Af 55 L, BUN/Creatinine Ratio 29.5 H, Glucose 86, Calcium 8.4 L Micro: Microbiology 01/05/24 16:20 Urine, Clean Catch Urine Culture - Final GNR lactose correspondence analyst Radiography Diagnostic Testing: Radiology Impression Renal Ultrasound 01/06/24 10:19 IMPRESSION: 1. Bilateral renal cysts for which no follow-up is indicated. No hydronephrosis or other acute renal pathology. 2. The prostate measures approximately 30 mL. Electronically Signed: Abdirahman Liu DO at 20:55 EDT , Physical Exam Narrative Seen and examined. Patient left leg is still swollen than right but overall feeling better. Kidney function improving. No fever. Physical exam General: Alert, Oriented x3, Cooperative HEENT: Atraumatic, PERRLA, EOMI, Normocephalic Oral: Oral mucosa moist. No Gingival or Mucosal Lesions/ Ulcerations Neck: Supple, No JVD, Negative Carotid Bruits Chest wall/Lungs: Air entry diminished in bilateral lung bases. No crepitation/rhonchi Cardiovascular: Open heart surgery scar. Normal S1, Normal S2, soft systolic murmur Abdomen: Bowel Sounds Present, Soft, Non Tender, Non-Distended : No dysuria. No renal angle tenderness. No suprapubic tenderness. Extremities: Left leg swollen more than right. Capillary Refill Less than 3 Seconds Skin: No rashes, No breakdown Musculoskeletal: Mild tenderness in left leg near calf. Prominent varicose vein on the left foot. Bilateral DVT. No bony or joint tenderness. ROM intact Neurological: Cranial nerves II-XII grossly intact, DTR 2+/4. No acute focal neurological deficit. Psych/Mental Status: Flat affect Assessment & Plan Assessment/Plan (1) Acute kidney injury: PLAN: Plan This is a 83-year-old gentleman being admitted for generalized fatigue and weakness. Found to be BART 1. BART most likely due to diuretic on CKD stage IIIa: [facility] Started on IV fluid normal saline 100 mill per hour for 2 L. Furosemide/diuretics discontinued. UA shows occult blood 250, protein 15. RBC 25-50 cells, WBC 0-5 sensitively 25. Nitrite negative. Urine electrolytes and indices ordered. Urine culture ordered. Chest x-ray no acute abnormality 01/05: Improvement in creatinine to 1.74. Renal and bladder ultrasound is ordered. Urine culture shows no growth. Urine osmolarity 451, total protein 13.5, urine sodium 86, creatinine 68.7, potassium 50 and chloride 123 suggestive of recent diuretic use. Head Tennis Professional further consulted. 01/06: Creatinine improved to 1.32. BUN 39. Electrolytes except chloride in normal range. Bicarb 23. Anion gap 5. 2. Chronic BPH: Patient is stated he gets intermittent hematuria and had prostate surgery many years ago by Dr. Perdomo and used to follow Dr. Banda. Currently denies any decrease in urinary stream or force. Bladder scan every 4 hourly. Patient had cystoscopy in September 2023 for suspected prostate nodule but found to be BPH. Had transurethral section of the prostate. 3. Acute bilateral lower extremity DVT, left more than right with history of chronic DVT status post IVC filter: In the past patient could not tolerate anticoagulants. He had 3 units blood transfusion in the past and requiring admission in May 2023. Had IVC filter in June 03, 2023. Venous duplex of lower extremities done this time shows acute DVT in bilateral proximal veins, left tibioperoneal trunk, posterior tibial and peroneal veins and acute superficial vein thrombosis in the right GSV. Risk and benefits of anticoagulants discussed and patient very concerned but agreed that we will start low-dose Eliquis 2.5 mg twice daily although not the therapeutic dose. Will check stool for occult blood and H&H the night. Discontinue Eliquis if platelet count drops less than 50,000 or hemoglobin less than 8 g% 01/05: H&H did not show much drop. 11.6. Patient on Eliquis 2.5 mg twice daily although not appropriate for DVT dose but because of severe recent GI bleed and BART. Vascular surgery consulted for further opinion. Patient does not want to take full therapeutic dose for the fear of GI bleed and said it was a near situation last time. 01/06: Patient evaluated by vascular surgeon. Bilateral DVT acute thromboembolism of LLE up to left iliac vein, unprovoked DVT. H&H 11.3/34.7. Patient tolerating Eliquis 5 mg twice daily. Will continue. 4. CAD status post CABG: Patient had most recent cardiac stent in December 2022. Hold Plavix . 5. Hypertension: On amlodipine and Lopressor. Blood pressure in normal range. 6. Dyslipidemia: Intolerant to statin and fenofibrate. Outpatient follow-up. 7. Hypothyroidism: On home dose Synthroid. 8. History of A-fib status post radiofrequency ablation: Twelve-lead EKG once done which shows normal sinus rhythm with PVCs and PACs 9. History of GI bleed: PPI twice daily. Living will/advanced directive/end of life care: Patient does have living will or advanced directive. Next to kin is his daughter. After discussion of benefits/risks procedures involved with full code, DNR CC arrest and DNR CC, the patient opted for full code. Patient does want artificial life support including intubation, tube feed, ventilator and/chest compression, central venous catheter, vasopressor and DC shock if needed Microbiology Past 72 Hours 01/05/24 16:20 Urine, Clean Catch Urine Culture - Preliminary Culture exhibits no growth. Laboratory Results 01/05/24 16:20: Urine Osmolality 451, U Random Total Protein 13.5 H, Ur Random Sodium 86, Urine Creatinine 68.70, Protein/Creatinin Ratio 197, Urine Potassium 49.9, Urine Chloride 123 01/05/24 19:35: Hgb 12.8 L, Hct 38.3 L 01/06/24 05:05: WBC 8.1, RBC 3.68 L, Hgb 11.6 L, Hct 35.5 L, MCV 96.5 H, MCH 31.5, MCHC 32.7, RDW Std Deviation 50.6 H, RDW Coeff of Sukumar 14.4, Plt Count 163, MPV 10.1, Immature Gran % (Auto) 0.700, Neut % (Auto) 76.4 H, Lymph % (Auto) 12.0 L, Gilchrist % (Auto) 9.9, Eos % (Auto) 0.5, Baso % (Auto) 0.5, Absolute Neuts (auto) 6.2, Absolute Lymphs (auto) 0.97, Nucleated RBC % 0, Sodium 141, Potassium 4.2, Chloride 111 H, Carbon Dioxide 22.0, Anion Gap 8, BUN 52 H, C reatinine 1.74 H, Estim Creat Clear Calc 35.04, Est GFR (MDRD) Af Amer 49 L, Est GFR (MDRD) Non-Af 40 L, BUN/Creatinine Ratio 29.9 H, Glucose 86, Calcium 8.4 L, TSH 1.08 Laboratory Results 01/05/24 06:55: WBC 9.0, RBC 4.35 L, Hgb 13.8, Hct 42.1, MCV 96.8 H, MCH 31.7, MCHC 32.8, RDW Std Deviation 51.1 H, RDW Coeff of Sukumar 14.4, Plt Count 199, MPV 9.9, Immature Gran % (Auto) 0.800, Neut % (Auto) 75.5 H, Lymph % (Auto) 13.9 L, Gilchrist % (Auto) 9.3, Eos % (Auto) 0.2, Baso % (Auto) 0.3, Absolute Neuts (auto) 6.8, Absolute Lymphs (auto) 1.26, Nucleated RBC % 0, Sodium 141, Potassium 4.9, Chloride 110 H, Carbon Dioxide 24.0, Anion Gap 7, BUN 53 H, Creatinine 2.66 H, Estim Creat Clear Calc 22.99, Est GFR (MDRD) Af Amer 30 L, Est GFR (MDRD) Non-Af 25 L, BUN/Creatinine Ratio 19.9, Glucose 116 H, Uric Acid 10.3 H, Calcium 9.4, Phosphorus 4.5, Magnesium 2.6, Total Bilirubin 1.40 H, AST 12 L, ALT 24, Alkaline Phosphatase 63, Total Creatine Kinase 44, Troponin I High Sens 6, B- Natriuretic Peptide 84.8, Total Protein 6.8, Albumin 3.6, Globulin 3.2, Albumin/Globulin Ratio 1.1 01/05/24 07:55: Urine Color Yellow, Urine Clarity Clear, Urine pH 5.0, Ur Specific [place] 1.010, Urine Protein 15 H, Urine Glucose (UA) Normal, Urine Ketones Negative, Urine Occult Blood 250 H, Urine Nitrite Negative, Urine Bilirubin Negative, Urine Urobilinogen Normal, Ur Leukocyte Esterase 25 H, Urine RBC 25-50 SEEN, Urine WBC 0-5 SEEN, Ur Squamous Epith Cells 0-5 SEEN, Urine Bacteria RARE, Hyaline Casts 0-5 SEEN, Urine Mucus 1+ Clinical Impression(s) from Imaging Studies Chest X-Ray 01/05/24 07:08 IMPRESSION: No acute cardiopulmonary abnormality. Venous Doppler Study 01/05/24 09:25 Interpretation Summary Acute deep vein thrombosis is noted in the right distal femoral vein, popliteal vein, tibioperoneal trunk vein. Acute deep vein thrombosis is noted in the left common femoral vein, femoral vein, popliteal vein, tibioperoenal trunk vein, posterior tibial vein, peroneal vein Acute superficial vein thrombosis is noted in the right great saphenous vein. Charges/Coding Visit Charges Inpatient E&M: 13077 Subs Hosp L2
--- NOTE | 2024-01-07 13:32 | CHAPLAIN ---
Type of Pastoral Visit _x__ Initial Visit ___ Follow-up Visit ___ On-call Visit ___ General Patient Visit ___ Spiritual Assessment ___ Family Conference ___ Bereavement ___ Rapid Response ___ Code Blue ___ Other (describe below) Pastoral Care Referral From _x__ Patient ___ Family ___ Nurse ___ Physician ___ Deputy Sheriff/Investigator ___ Rf Design Engineer ___ Other (describe below) Sacrament/Intervention _x__ Active listening ___ Anointing ___ Mormon ___ Bereavement ___ Communion _x__ Angely exploration ___ _x__ Life review ___ Prayer ___ Reconciliation ___ Sacrament of Sick ___ Supportive presence ___ Wedding ___ Other (describe below) Pastoral Comments very talkative patient that spoke much of his life in review, his angely community, his relationship with a 'girlfriend', thoughts about his health; pt welcomed presence and prayers
[2024-01-07] MEDS: 0.9% Saline Lock 10 ML Syringe IV (21:33)
[2024-01-08 02:21] VITALS: BP 117/56; PULSE 68; RESP 18; TEMP 36.5; O2SAT 98
[2024-01-08] MEDS: Levothyroxine 88 MCG Tablet PO (05:23)
[2024-01-08 06:00] VITALS: BMI 22.9
[2024-01-08 06:12] LABS: Absolute Neutrophil Count 4.4 X10^3/uL (2.0-7.7); Basophil# 0.02 X10^3/uL; Basophil% 0.3 % (0-1); Eosinophil# 0.03 X10^3/uL; Eosinophils% 0.5 % (0-5); Hematocrit 36.4 % (40-54); Hemoglobin 11.9 g/dL (13.0-16.5); Lymphocyte % 16.2 % (19-41); Mean Corp Hgb Conc 32.7 g/dL (32-36); Mean Corpuscular Hgb 31.7 pg (27.0-32.0); Mean Corpuscular Volume 97.1 fL (80-94); Mean Platelet Vol. 9.7 fl (6.2-12.0); Monocyte# 0.69 X10^3/uL; Monocyte% 11.1 % (0-10); NRBC Flagged by Analyzer 0 % (0-5); Neutrophil % 71.1 % (47-70); Platelet Count 194 K/mm3 (150-450); RBC Distribution Width CV 14.2 % (11.6-14.6); RBC Distribution Width SD 50.3 fl (35.1-43.9); Red Blood Count 3.75 M/mm3 (4.6-6.2); White Blood Count 6.2 K/mm3 (4.4-11.0)
[2024-01-08 06:42] LABS: Anion Gap 7 (5-15); BUN 34 mg/dL (7-18); BUN/Creat Ratio 29.8 RATIO (10-20); Calcium,Total 8.5 mg/dL (8.5-10.1); Chloride 111 mmol/L (98-107); Creatinine, Serum 1.14 mg/dL (0.70-1.30); EST Glomerular Filtration Rate 66 mL/min (>60); Est Glom Filt Rate - Afr Amer 79 mL/min (>60); Estimated Creatinine Clearance 53.48 ml/min; Glucose 87 mg/dL (74-106); Potassium 4.2 mmol/L (3.5-5.1); Sodium Level 139 mmol/L (136-145)
[2024-01-08 08:30] VITALS: BP 131/66; PULSE 67; RESP 16; TEMP 36.6; O2SAT 97
[2024-01-08 09:01] VITALS: BP 131/66; PULSE 67
[2024-01-08] MEDS: Pantoprazole Sodium 40 MG Tablet PO (09:01)
[2024-01-08] MEDS: Cholecalciferol (VIT D3) 25 MCG TABLET (1,000 UNITS) PO (09:01)
[2024-01-08] MEDS: Metoprolol Tartrate 50 MG Tablet PO (09:01)
[2024-01-08] MEDS: APIXABAN 5 MG TABLET PO (09:03)
[2024-01-08] MEDS: amLODIPine 2.5 MG Tablet PO (09:03)
[2024-01-08 09:21] VITALS: PULSE 67; RESP 16; O2SAT 97
--- NOTE | 2024-01-08 11:10 | CASEMGMT ---
Addendum entered by Domenico Rubin 01/08/24 13:18: Pt has an Rx for Eliquis placed by Dr. Almanza. TC to [facility] who states that the medication is 35$ after insurance. The pt has used the savings card before so he cannot use this again. RN IMMANUEL to pt room at this time and the pt states that he is OK with this and denies further concerns. Original Note: SHENA GAMBINO to pt room to discuss DC planning. The plan is for the pt to DC today per Dr. Almanza. Pt states that he is interested in attending OP Tx down the road once I am feeling a little better. Rx signed by Dr. Almanza. Copy placed in pt chart and original Rx given to pt. Pt states that he will call and make an appt himself. Pt denies further needs at this time. DC plan updated.
--- NOTE | 2024-01-08 11:28 | DCINST_ITS ---
Discharge Instructions Diet Discharge Diet: 2000 mg Sodium Diet Activity Discharge Activity: Return to Normal Activity Weight Bearing Status: Weight bearing as tolerated Dressing / Incision Call your doctor if you observe: Fever of 101 or Higher, Coldness, Increased Pain, Numbness or Tingling, Change in Color, Inability to urinate, Inability to have a bowel movement, Shortness of breath, Dizziness, Fainting spells, Swelling in the ankles, Chest pain, Prolonged hiccupping, Increased palpitations (irregular heartbeat) and Calf discomfort Follow Up Care When: IN 2 WEEKS Test Results: Test results from this visit will be discussed in further detail at your follow- up appointment, if applicable. Discharge Plan Admission Admit Date/Time: 01/05/24 09:16 Primary Reason for Your Visit: BART. Acute bilateral lower extremities DVT Attending Provider: Jaya Almanza Primary Care Provider: Jose Hooks Chi Consulting Providers: Karis Ca; Lm Maxwell Instructions Additional Instructions / Restrictions: Plavix was discontinued as patient had 1 year after last cardiac assessment in December 2022. Hold baby aspirin as patient history of GI bleed. On Eliquis 5 mg twice daily. Hold Lasix follow with doughnut glazier episode resumption. Discharge Orders/Prescriptions Prescriptions: New pantoprazole 40 mg Tablet,Delayed Release (Dr/Ec) 40 mg PO BID 30 Days Qty: 60 2RF Eliquis 5 mg Tablet 5 mg PO Q12 30 Days Qty: 60 2RF Rx Instructions: Discontinue if platelet count drops less than 50,000 or hemoglobin less than 8 g% sennosides-docusate sodium [Stimulant Laxative Plus] 8.6-50 mg Tablet 2 tab PO BID Qty: 0 0RF ferrous sulfate 324 mg (65 mg iron) tablet,delayed release (DR/EC) 324 mg PO QODAY Qty: 30 2RF ascorbic acid (vitamin C) 500 mg tablet 500 mg PO BID Qty: 60 2RF Continued cholecalciferol (vitamin D3) 25 mcg (1,000 unit) capsule 25 mcg PO DAILY (DME) blood pressure monitor Kit See Rx Instructions .Route Qty: 1 0RF Rx Instructions: As directed metoprolol tartrate 50 mg tablet 50 mg PO BID Qty: 60 11RF levothyroxine 88 mcg tablet 88 mcg PO DAILY diphenhydramine-acetaminophen [Tylenol PM Extra Strength] 25-500 mg tablet 2 tab PO QHS Held aspirin [Adult Aspirin Regimen] 81 mg tablet,delayed release (DR/EC) 81 mg PO DAILY Hold Instructions: Hold for 2 to 3 weeks and check with PCP before resumption. Patient on Eliquis and history of GI bleed furosemide [Lasix] 40 mg tablet 40 mg PO DAILY Qty: 30 3RF Hold Instructions: Hold for 1 month and following with doughnut glazier before resumption. Discontinued amlodipine 2.5 mg Tablet 2.5 mg PO DAILY Qty: 60 6RF clopidogrel 75 mg Tablet 75 mg PO DAILY Qty: 30 11RF pantoprazole 40 mg Tablet,Delayed Release (Dr/Ec) 40 mg PO DAILY Rx Instructions: Twice daily for 2 months and then once daily. Referrals / Follow Up: Karis Ca DO [Med Staff - Consulting] - Within 2 Weeks Lm Maxwell MD [Med Staff - Active Staff] - Within 2 Weeks (For bilateral DVT.) Jose Hooks Chi, MD [Primary Care Provider] - Within 2 Weeks Disposition Disposition (needs filled in before D/C Order can be placed): Home Health Service
--- NOTE | 2024-01-08 11:40 | DS.PCM_ITS ---
Providers Date of Admission: 01/05/24 Date of Discharge: 01/08/24 Primary Care Physician: Dr. Jose Hooks MD Consultations 01/06/24 10:18 Consult: Vascular Surgery Routine Consulting Provider: Lm Maxwell Reason for Consult: B/L LE DVT, IVC filter EMERGENT Consult: No Notified: Yes Date Notified: 01/06/24 Time Notified: 10:18 Method of Notification: Text 01/06/24 10:19 Consult: Nephrology Routine Consulting Provider: Karis Ca Reason for Consult: BART EMERGENT Consult: No Notified: Yes Date Notified: 01/06/24 Time Notified: 10:19 Method of Notification: Text Reason For Visit: BART Diagnosis Discharge Diagnosis (1) Acute kidney injury: Status: Acute Code(s): N17.9 - Acute kidney failure, unspecified (2) CKD stage 3a, GFR 45-59 ml/min: Status: Chronic Code(s): N18.31 - Chronic kidney disease, stage 3a (3) Deep vein thrombosis (DVT) of iliac vein: Status: Acute Code(s): I82.429 - Acute embolism and thrombosis of unspecified iliac vein Qualifiers: Chronicity: acute Laterality: left Qualified Code(s): I82.422 - Acute embolism and thrombosis of left iliac vein (4) Bilateral lower extremity edema: Status: Acute Code(s): R60.0 - Localized edema Plan This is a 83-year-old gentleman being admitted for generalized fatigue and weakness. Found to be BART 1. BART most likely due to diuretic on CKD stage IIIa: Patient is being admitted on MedSurg floor. Started on IV fluid normal saline 100 mill per hour for 2 L. Furosemide/diuretics discontinued. UA shows occult blood 250, protein 15. RBC 25-50 cells, WBC 0-5 sensitively 25. Nitrite negative. Urine electrolytes and indices ordered. Urine culture ordered. Chest x-ray no acute abnormality 01/05: Improvement in creatinine to 1.74. Renal and bladder ultrasound is ordered. Urine culture shows no growth. Urine osmolarity 451, total protein 13.5, urine sodium 86, creatinine 68.7, potassium 50 and chloride 123 suggestive of recent diuretic use. Math And Physics Instructor further consulted. 01/06: Creatinine improved to 1.32. BUN 39. Electrolytes except chloride in normal range. Bicarb 23. Anion gap 5. 8/9: BUNs/creatinine improved 34/1.14. Back to baseline. Continue holding furosemide/Lasix until follows senior copywriter Dr. Ca. Electrolytes in normal range. 2. Chronic BPH: Patient is stated he gets intermittent hematuria and had prostate surgery many years ago by Dr. Perdomo and used to follow Dr. Banda. Currently denies any decrease in urinary stream or force. Bladder scan every 4 hourly. Patient had cystoscopy in September 2023 for suspected prostate nodule but found to be BPH. Had transurethral section of the prostate. 01/07: Urine culture shows GNR lactose paint grinder less than 1000. UTI ruled out. Patient does not have acute lower admitted symptoms. 3. Acute bilateral lower extremity DVT, left more than right with history of chronic DVT status post IVC filter: In the past patient could not tolerate anticoagulants. He had 3 units blood transfusion in the past and requiring admission in May 2023. Had IVC filter in June 03, 2023. Venous duplex of lower extremities done this time shows acute DVT in bilateral proximal veins, left tibioperoneal trunk, posterior tibial and peroneal veins and acute superficial vein thrombosis in the right GSV. Risk and benefits of anticoagulants discussed and patient very concerned but agreed that we will start low-dose Eliquis 2.5 mg twice daily although not the therapeutic dose. Will check stool for occult blood and H&H the night. Discontinue Eliquis if platelet count drops less than 50,000 or hemoglobin less than 8 g% 01/05: H&H did not show much drop. 11.6. Patient on Eliquis 2.5 mg twice daily although not appropriate for DVT dose but because of severe recent GI bleed and BART. Vascular surgery consulted for further opinion. Patient does not want to take full therapeutic dose for the fear of GI bleed and said it was a near situation last time. 01/06: Patient evaluated by vascular surgeon. Bilateral DVT acute thromboembolism of LLE up to left iliac vein, unprovoked DVT. H&H 11.3/34.7. Patient tolerating Eliquis 5 mg twice daily. Will continue. 01/07: Continue Eliquis 5 mg twice daily. Follow-up with Dr. Lm Mtz. Prescription for Eliquis given. 4. CAD status post CABG: Patient had most recent cardiac stent in December 2022. Hold Plavix . 01/07: Patient completed 1 year of Plavix because of cardiac stent therefore Plavix discontinued. Hold baby aspirin until H&H is stabilized, at least for 2 weeks. Follow with cardiology . 5. Hypertension: On amlodipine and Lopressor. Blood pressure in normal range. 6. Dyslipidemia: Intolerant to statin and fenofibrate. Outpatient follow-up. 7. Hypothyroidism: On home dose Synthroid. 8. History of A-fib status post radiofrequency ablation: Twelve-lead EKG once done which shows normal sinus rhythm with PVCs and PACs 9. History of GI bleed: PPI twice daily. 01/07: H&H was 4 during hospital stay. Remained constant actually improved from 11.6-11.9. Platelet count 194,000. Prescription for ferrous sulfate and ascorbic acid given. Stool for occult blood positive. Follow-up in GI. Living will/advanced directive/end of life care: Patient does have living will or advanced directive. Next to kin is his daughter. After discussion of benefits/risks procedures involved with full code, DNR CC arrest and DNR CC, the patient opted for full code. Patient does want artificial life support including intubation, tube feed, ventilator and/chest compression, central venous catheter, vasopressor and DC shock if needed Discharge medication reconciliation done. Discharge follow-up instructions completed. Discharge process discussed with the patient and all questions were answered to patient's satisfaction. Follow with PCP in 1 to 2 weeks Total time spent, exact 35 minutes on discharge meds reconciliation, examination, coordination of care with nurses and ancillary staff, review of imaging and blood test and discussion with the patient on follow-up instructions. Microbiology Past 72 Hours 01/08/24 08:25 Stool Stool Occult Blood ([facility]IS) - Final Occult Blood Positive 01/05/24 16:20 Urine, Clean Catch Urine Culture - Final GNR lactose paint grinder Laboratory Results 01/08/24 05:43: WBC 6.2, RBC 3.75 L, Hgb 11.9 L, Hct 36.4 L, MCV 97.1 H, MCH 31.7, MCHC 32.7, RDW Std Deviation 50.3 H, RDW Coeff of Sukumar 14.2, Plt Count 194, MPV 9.7, Immature Gran % (Auto) 0.800, Neut % (Auto) 71.1 H, Lymph % (Auto) 16.2 L, [place] % (Auto) 11.1 H, Eos % (Auto) 0.5, Baso % (Auto) 0.3, Absolute Neuts (auto) 4.4, Absolute Lymphs (auto) 1.00, Nucleated RBC % 0, Sodium 139, Potassium 4.2, Chloride 111 H, Carbon Dioxide 21.0, Anion Gap 7, BUN 34 H, Creatinine 1.14, Estim Creat Clear Calc 53.48, Est GFR (MDRD) Af Amer 79, Est GFR (MDRD) Non-Af 66, BUN/Creatinine Ratio 29.8 H, Glucose 87, Calcium 8.5 Clinical Impression(s) from Imaging Studies Chest X-Ray 01/05/24 07:08 IMPRESSION: No acute cardiopulmonary abnormality. Venous Doppler Study 01/05/24 09:25 Interpretation Summary Acute deep vein thrombosis is noted in the right distal femoral vein, popliteal vein, tibioperoneal trunk vein. Acute deep vein thrombosis is noted in the left common femoral vein, femoral vein, popliteal vein, tibioperoenal trunk vein, posterior tibial vein, peroneal vein Acute superficial vein thrombosis is noted in the right great saphenous vein. Medications at Discharge Home Medications cholecalciferol (vitamin D3) 25 mcg (1,000 unit) capsule 25 mcg PO DAILY SUPPLEMENT 12/25/21 blood pressure monitor #1 ea 01/15/23 metoprolol tartrate 50 mg tablet 50 mg PO BID BLOOD PRESSURE #60 tabs 02/24/23 levothyroxine 88 mcg tablet 88 mcg PO DAILY THYROID 05/29/23 aspirin 81 mg tablet,delayed release (Adult Aspirin Regimen) 81 mg PO DAILY Anticoagulant 09/30/23 diphenhydramine 25 mg-acetaminophen 500 mg tablet (Tylenol PM Extra Strength) 2 tab PO QHS Sleep 09/30/23 furosemide 40 mg tablet (Lasix) 40 mg PO DAILY Water retention #30 tabs 12/31/23 apixaban 5 mg tablet (Eliquis) 5 mg PO Q12 30 days #60 tabs 01/08/24 ascorbic acid (vitamin C) 500 mg tablet 500 mg PO BID #60 tabs 01/08/24 ferrous sulfate 324 mg (65 mg iron) tablet,delayed release 324 mg PO QODAY #30 tabs 01/08/24 pantoprazole 40 mg tablet,delayed release 40 mg PO BID 1 month #60 tabs 01/08/24 sennosides 8.6 mg-docusate sodium 50 mg tablet (Stimulant Laxative Plus) 2 tab PO BID #0 tabs 01/08/24 Physical Exam Narrative Seen and examined. Patient left leg is still swollen than right but overall feeling better. Continue Eliquis. Kidney function improved and back to baseline. No fever. Physical exam General: Alert, Oriented x3, Cooperative HEENT: Atraumatic, PERRLA, EOMI, Normocephalic Oral: Oral mucosa moist. No Gingival or Mucosal Lesions/ Ulcerations Neck: Supple, No JVD, Negative Carotid Bruits Chest wall/Lungs: Air entry diminished in bilateral lung bases. No crepitation/rhonchi Cardiovascular: Open heart surgery scar. Normal S1, Normal S2, soft systolic murmur Abdomen: Bowel Sounds Present, Soft, Non Tender, Non-Distended : No dysuria. No renal angle tenderness. No suprapubic tenderness. Extremities: Left leg swollen more than right, looks slightly better. Capillary Refill Less than 3 Seconds Skin: No rashes, No breakdown Musculoskeletal: Mild tenderness in left leg near calf. Prominent varicose vein on the left foot. Bilateral DVT. No bony or joint tenderness. ROM intact Neurological: Cranial nerves II-XII grossly intact, DTR 2+/4. No acute focal neurological deficit. Psych/Mental Status: Flat affect Weight / BMI Weight Weight: 164 lb 0.383 oz Body Mass Index (BMI) 22.9 ABG / Lab / Microbiology Data 01/08/24 05:43 01/08/24 05:43 Laboratory: Laboratory Results - last 24 hr 01/08/24 05:43: WBC 6.2, RBC 3.75 L, Hgb 11.9 L, Hct 36.4 L, MCV 97.1 H, MCH 31.7, MCHC 32.7, RDW Std Deviation 50.3 H, RDW Coeff of Sukumar 14.2, Plt Count 194, MPV 9.7, Immature Gran % (Auto) 0.800, Neut % (Auto) 71.1 H, Lymph % (Auto) 16.2 L, [place] % (Auto) 11.1 H, Eos % (Auto) 0.5, Baso % (Auto) 0.3, Absolute Neuts (auto) 4.4, Absolute Lymphs (auto) 1.00, Nucleated RBC % 0, Sodium 139, Potassium 4.2, Chloride 111 H, Carbon Dioxide 21.0, Anion Gap 7, BUN 34 H, Creatinine 1.14, Estim Creat Clear Calc 53.48, Est GFR (MDRD) Af Amer 79, Est GFR (MDRD) Non-Af 66, BUN/Creatinine Ratio 29.8 H, Glucose 87, Calcium 8.5 Microbiology: Microbiology 01/08/24 08:25 Stool Stool Occult Blood (CHRIS) - Final Occult Blood Positive 01/05/24 16:20 Urine, Clean Catch Urine Culture - Final GNR lactose paint grinder D/C Instructions Discharge Diet: 2000 mg Sodium Diet Weight Bearing Status: Weight bearing as tolerated Call your doctor if you observe: Fever of 101 or Higher, Coldness, Increased Pain, Numbness or Tingling, Change in Color, Inability to urinate, Inability to have a bowel movement, Shortness of breath, Dizziness, Fainting spells, Swelling in the ankles, Chest pain, Prolonged hiccupping, Increased palpitations (irregular heartbeat) and Calf discomfort When: IN 2 WEEKS Meaningful Use Info Meaningful Use Meaningful Use Diagnoses (Choose all that apply): None applicable Ischemic Stroke Statin Dosing Therapy Reference: STATIN DOSE THERAPY REFERENCE: * Patients > 75 years receive moderate or high dose statin therapy. * Patients 75 years or YOUNGER should receive HIGH intensity statin dose unless contraindicated. You will be required to document reason for non-treatment if statin daily dose does not meet guidelines. HIGH DOSE STATIN THERAPY DAILY Atorvastatin > than or = to 40 mg Rosuvastatin > than or = to 20 mg Amlodipine + Atorvastatin > than or = to 2.5/40 mg Ezetimibe + Simvastatin 10/80 mg Simvastatin 80mg Discharge Plan Admission Admit Date/Time: 01/05/24 09:16 Primary Reason for Your Visit: BART. Acute bilateral lower extremities DVT Attending Provider: Jaya Almanza Primary Care Provider: Jose Hooks [employer] Consult[employer] Providers: Karis Ca; Lm Maxwell Instructions Additional Instructions / Restrictions: Plavix was discontinued as patient had 1 year after last cardiac assessment in December 2022. Hold baby aspirin as patient history of GI bleed. On Eliquis 5 mg twice daily. Hold Lasix follow with senior copywriter episode resumption. Discharge Orders/Prescriptions Prescriptions: New pantoprazole 40 mg Tablet,Delayed Release (Dr/Ec) 40 mg PO BID 30 Days Qty: 60 2RF Eliquis 5 mg Tablet 5 mg PO Q12 30 Days Qty: 60 2RF Rx Instructions: Discontinue if platelet count drops less than 50,000 or hemoglobin less than 8 g% sennosides-docusate sodium [Stimulant Laxative Plus] 8.6-50 mg Tablet 2 tab PO BID Qty: 0 0RF ferrous sulfate 324 mg (65 mg iron) tablet,delayed release (DR/EC) 324 mg PO QODAY Qty: 30 2RF ascorbic acid (vitamin C) 500 mg tablet 500 mg PO BID Qty: 60 2RF Continued cholecalciferol (vitamin D3) 25 mcg (1,000 unit) capsule 25 mcg PO DAILY (DME) blood pressure monitor Kit See Rx Instructions .Route Qty: 1 0RF Rx Instructions: As directed metoprolol tartrate 50 mg tablet 50 mg PO BID Qty: 60 11RF levothyroxine 88 mcg tablet 88 mcg PO DAILY diphenhydramine-acetaminophen [Tylenol PM Extra Strength] 25-500 mg tablet 2 tab PO QHS Held aspirin [Adult Aspirin Regimen] 81 mg tablet,delayed release (DR/EC) 81 mg PO DAILY Hold Instructions: Hold for 2 to 3 weeks and check with PCP before resumption. Patient on Eliquis and history of GI bleed furosemide [Lasix] 40 mg tablet 40 mg PO DAILY Qty: 30 3RF Hold Instructions: Hold for 1 month and following with senior copywriter before resumption. Discontinued amlodipine 2.5 mg Tablet 2.5 mg PO DAILY Qty: 60 6RF clopidogrel 75 mg Tablet 75 mg PO DAILY Qty: 30 11RF pantoprazole 40 mg Tablet,Delayed Release (Dr/Ec) 40 mg PO DAILY Rx Instructions: Twice daily for 2 months and then once daily. Referrals / Follow Up: Karis Ca DO [Med Staff - Consulting] - Within 2 Weeks Lm Maxwell MD [Med Staff - Active Staff] - Within 2 Weeks (For bilateral DVT.) Jose Hooks Chi, MD [Primary Care Provider] - Within 2 Weeks Taco Rose DO [Med Staff - Active Staff] - Within 1 Month Disposition Disposition (needs filled in before D/C Order can be placed): Home Health Service Charges/Coding Visit Charges Inpatient E&M: 73724 Disch Hosp >30min
[2024-01-08 14:13] VITALS: BP 114/83; PULSE 69; RESP 16; TEMP 36.9; O2SAT 98
== END 2024-01-08 15:30 | disposition home or self-care (01) | DRG 301 ==
LOC: ED 08:40 → MS3 10:21
PROVIDERS: Internal Medicine Nephrology; Admitting Provider Internal Medicine; Emergency Provider Emergency Medicine; PCP Family Medicine Geriatric Medicine; Visit Provider Internal Medicine
DX: I82.422 Acute embolism and thrombosis of left iliac vein (principal); I82.413 Acute embolism and thrombosis of femoral vein, bilateral; N18.31 Chronic kidney disease, stage 3a; E03.9 Hypothyroidism, unspecified; I12.9 Hypertensive chronic kidney disease with stage 1 through stage 4 chronic kidney disease, or unspecified chronic kidney disease; Z95.828 Presence of other vascular implants and grafts; I82.491 Acute embolism and thrombosis of other specified deep vein of right lower extremity; I82.432 Acute embolism and thrombosis of left popliteal vein; I82.442 Acute embolism and thrombosis of left tibial vein; E78.00 Pure hypercholesterolemia, unspecified; I25.10 Atherosclerotic heart disease of native coronary artery without angina pectoris; E86.0 Dehydration; K21.9 Gastro-esophageal reflux disease without esophagitis; Z95.5 Presence of coronary angioplasty implant and graft; Z79.890 Hormone replacement therapy; Z79.02 Long term (current) use of antithrombotics/antiplatelets; Z95.1 Presence of aortocoronary bypass graft; Z86.73 Personal history of transient ischemic attack (TIA), and cerebral infarction without residual deficits; Z79.899 Other long term (current) drug therapy; Z79.82 Long term (current) use of aspirin; Z90.49 Acquired absence of other specified parts of digestive tract; N40.0 Benign prostatic hyperplasia without lower urinary tract symptoms; R60.0 Localized edema
CPT/HCPCS: 36415; 71045; 76770; 80048; 80053; 81001; 82274; 82436; 82550; 82570; 83735; 83880; 83935; 84100; 84133; 84156; 84300; 84443; 84484; 84550; 85014; 85018; 85025; 87086; 87088; 93005; 93970; 94668; 97110; 97116; 97162; 97166; 97530; 99285; A4216

== ENCOUNTER → 2024-01-11 | Outpatient (CLI) | payer MEDICARE, SELFPAY ==
[2023-04-13 08:14] VITALS: BMI 24.3
[2024-01-11 10:35] LABS: Absolute Lymphocyte Count 0.99 X10^3/uL (0.83-4.51); Absolute Neutrophil Count 5.1 X10^3/uL (2.0-7.7); Basophil# 0.03 X10^3/uL; Basophil% 0.4 % (0-1); Eosinophil# 0.05 X10^3/uL; Eosinophils% 0.7 % (0-5); Hematocrit 39.1 % (40-54); Hemoglobin 12.7 g/dL (13.0-16.5); Lymphocyte # 0.99 X10^3/ul (0.83-4.51); Lymphocyte % 14.5 % (19-41); Mean Corp Hgb Conc 32.5 g/dL (32-36); Mean Corpuscular Hgb 31.8 pg (27.0-32.0); Mean Corpuscular Volume 97.8 fL (80-94); Mean Platelet Vol. 9.3 fl (6.2-12.0); Monocyte% 8.8 % (0-10); NRBC Flagged by Analyzer 0 % (0-5); Neutrophil # 5.06 X10^3/uL (2.7-7.7); Neutrophil % 74.4 % (47-70); Platelet Count 273 K/mm3 (150-450); RBC Distribution Width CV 14.4 % (11.6-14.6); RBC Distribution Width SD 52.1 fl (35.1-43.9); White Blood Count 6.8 K/mm3 (4.4-11.0)
[2024-01-11 11:35] LABS: Anion Gap 4 (5-15); BUN 34 mg/dL (7-18); BUN/Creat Ratio 24.1 RATIO (10-20); Calcium,Total 8.9 mg/dL (8.5-10.1); Chloride 113 mmol/L (98-107); Creatinine, Serum 1.41 mg/dL (0.70-1.30); EST Glomerular Filtration Rate 51 mL/min (>60); Est Glom Filt Rate - Afr Amer 62 mL/min (>60); Glucose 94 mg/dL (74-106); Potassium 4.5 mmol/L (3.5-5.1); Sodium Level 141 mmol/L (136-145)
== END | disposition home or self-care (01) ==
PROVIDERS: PCP Family Medicine Geriatric Medicine; Visit Provider Family Medicine Geriatric Medicine
DX: I10 Essential (primary) hypertension (principal)
CPT/HCPCS: 36415; 80048; 85025

== ENCOUNTER → 2024-01-20 | Outpatient (CLI) | payer MEDICARE, SELFPAY ==
[2023-04-13 08:14] VITALS: BMI 24.3
[2024-01-20 10:04] LABS: Hemoglobin 13.1 g/dL (13.0-16.5)
[2024-01-20 10:40] LABS: Anion Gap 4 (5-15); BUN 22 mg/dL (7-18); BUN/Creat Ratio 14.3 RATIO (10-20); Calcium,Total 9.3 mg/dL (8.5-10.1); Chloride 111 mmol/L (98-107); Creatinine, Serum 1.54 mg/dL (0.70-1.30); EST Glomerular Filtration Rate 46 mL/min (>60); Est Glom Filt Rate - Afr Amer 56 mL/min (>60); Glucose 92 mg/dL (74-106); Potassium 4.4 mmol/L (3.5-5.1); Sodium Level 141 mmol/L (136-145)
== END | disposition home or self-care (01) ==
LOC: LAB 09:25
PROVIDERS: Nurse Practitioner Gerontology; PCP Family Medicine Geriatric Medicine; Referring Provider Physician Assistant; Visit Provider Physician Assistant
DX: D64.9 Anemia, unspecified (principal); R06.09 Other forms of dyspnea
CPT/HCPCS: 36415; 80048; 85018

== ENCOUNTER → 2024-02-18 | Outpatient (CLI) | payer MEDICARE, SELFPAY ==
[2023-04-13 08:14] VITALS: BMI 24.3
[2024-02-18 11:40] LABS: Absolute Lymphocyte Count 1.01 X10^3/uL (0.83-4.51); Absolute Neutrophil Count 4.8 X10^3/uL (2.0-7.7); Basophil# 0.05 X10^3/uL; Basophil% 0.7 % (0-1); Eosinophil# 0.04 X10^3/uL; Eosinophils% 0.6 % (0-5); Hematocrit 41.1 % (40-54); Hemoglobin 13.3 g/dL (13.0-16.5); Lymphocyte # 1.01 X10^3/ul (0.83-4.51); Lymphocyte % 15.1 % (19-41); Mean Corp Hgb Conc 32.4 g/dL (32-36); Mean Corpuscular Hgb 32.1 pg (27.0-32.0); Mean Corpuscular Volume 99.3 fL (80-94); Mean Platelet Vol. 9.7 fl (6.2-12.0); Monocyte% 10.5 % (0-10); NRBC Flagged by Analyzer 0 % (0-5); Neutrophil # 4.84 X10^3/uL (2.7-7.7); Neutrophil % 72.5 % (47-70); Platelet Count 297 K/mm3 (150-450); Red Blood Count 4.14 M/mm3 (4.6-6.2); White Blood Count 6.7 K/mm3 (4.4-11.0)
== END | disposition home or self-care (01) ==
LOC: LAB 11:10
PROVIDERS: PCP Family Medicine Geriatric Medicine; Referring Provider Physician Assistant Medical; Visit Provider Physician Assistant Medical
DX: K92.2 Gastrointestinal hemorrhage, unspecified (principal)
CPT/HCPCS: 36415; 85025

== ENCOUNTER → 2024-03-07 | Outpatient (CLI) | payer MEDICARE, SELFPAY ==
[2023-04-13 08:14] VITALS: BMI 24.3
--- NOTE | 2024-03-07 12:50 | ECHOD_ITS ---
Reason For Study: SOB Procedure This was a 2D Doppler, Color Flow transthoracic echocardiogram. Exam performed in department. Left Ventricle Normal size and thickness. The left ventricular ejection fraction is 65 %. Diastolic function is indeterminate. Right Ventricle Normal right ventricle. Atria The left atrium is severely enlarged. The right atrium is mildly enlarged. Mitral Valve Mild-Moderate (1-2+) mitral valve insufficiency. Tricuspid Valve Mild tricuspid valve insufficiency. Right ventricular systolic pressure estimated to be 42 mmHg. Aortic Valve Trisinus/trileaflet aortic valve. Trivial aortic valve insufficiency. Pulmonic Valve Trivial pulmonic valve insufficiency identified. Great Vessels Normal sized aortic root. Pericardium/Pleural No pericardial effusion. MMode/2D Measurements & Calculations LVIDd: 3.9 cm IVSd: 1.2 cm LVOT diam: 2.3 cm LVIDs: 3.1 cm LVPWd: 1.0 cm LVOT area: 4.0 cm2 RVDd: 4.4 cm FS: 21.5 % Ao root diam: 3.8 cm LAV(MOD-bp): 77.8 ml LVAd ap4: 28.0 cm2 LA dimension: 4.6 cm LAV(MOD-bp) Indexed: 40.0 ml/m2 LVLd ap4: 7.3 cm LAV(MOD-sp2): 88.9 ml EDV(MOD-sp4): 86.0 ml LAV(MOD-sp4): 69.2 ml EDV(sp4-el): 91.3 ml LVAs ap4: 15.5 cm2 LVLs ap4: 6.5 cm ESV(MOD-sp4): 31.3 ml ESV(sp4-el): 31.0 ml EF(MOD-sp4): 63.7 % EF(sp4-el): 66.1 % SV(MOD-sp4): 54.7 ml SV(sp4-el): 60.3 ml LA A4 area: 23.5 cm2 RA A4 area: 19.5 cm2 TAPSE: 2.2 cm Time Measurements MV dec time: 0.19 sec Doppler Measurements & Calculations MV E max orestes: 80.9 cm/sec Lat Peak E' Orestes: 10.2 cm/sec Med Peak E' Orestes: 8.0 cm/sec MV A max orestes: 74.5 cm/sec E/E' lat: 8.0 E/E' med: 10.1 MV E/A: 1.1 MV V2 max: 104.1 cm/sec MV P1/2t max orestes: 104.4 cm/sec Ao V2 max: 100.0 cm/sec MV max P.3 mmHg MV P1/2t: 85.4 msec Ao max P.0 mmHg MV V2 mean: 56.5 cm/sec Ao V2 mean: 66.0 cm/sec MV mean P.5 mmHg MV dec slope: 358.2 cm/sec2 Ao mean P.0 mmHg MV V2 VTI: 39.8 cm MVA(P1/2t): 2.6 cm2 Ao V2 VTI: 24.4 cm AV (velocity ratio): 0.76 MVA(VTI): 1.9 cm2 ARON(I,D): 3.1 cm2 ARON(V,D): 2.9 cm2 LV V1 max: 72.6 cm/sec MR max orestes: 560.1 cm/sec SV(LVOT): 75.2 ml LV V1 max P.1 mmHg MR max P.5 mmHg LV V1 mean P.1 mmHg MR mean orestes: 465.2 cm/sec LV V1 mean: 49.1 cm/sec MR mean P.1 mmHg LV V1 VTI: 18.6 cm MR VTI: 170.2 cm PA V2 max: 89.7 cm/sec PI end-d orestes: 96.9 cm/sec TR max orestes: 304.7 cm/sec PA max PG (full): 2.3 mmHg TR max P.1 mmHg ECHO/Echo Complete Interpretation Summary The left ventricular ejection fraction is 65 %. Diastolic function is indeterminate. The left atrium is severely enlarged. The right atrium is mildly enlarged. Mild-Moderate (1-2+) mitral valve insufficiency. Mild tricuspid valve insufficiency. Right ventricular systolic pressure estimated to be 42 mmHg. Ordering Physician: Rina Olivier Referring Physician: Rina Olivier Performed By: Jose Winslow and Student
== END | disposition home or self-care (01) ==
LOC: CVS 12:50
PROVIDERS: PCP Family Medicine Geriatric Medicine; Referring Provider Physician Assistant Medical; Visit Provider Physician Assistant Medical
DX: R06.09 Other forms of dyspnea (principal)
CPT/HCPCS: 93306

== ENCOUNTER → 2024-03-15 | Outpatient (CLI) | payer MEDICARE, SELFPAY ==
[2023-04-13 08:14] VITALS: BMI 24.3
== END | disposition home or self-care (01) ==
LOC: PSN 08:36
PROVIDERS: PCP Family Medicine Geriatric Medicine; Referring Provider Physician Assistant Medical; Visit Provider Physician Assistant Medical
DX: R06.09 Other forms of dyspnea (principal)
CPT/HCPCS: 93225; 93226

== ENCOUNTER → 2024-03-29 | Outpatient (CLI) | payer MEDICARE, SELFPAY ==
[2023-04-13 08:14] VITALS: BMI 24.3
[2024-03-29 10:52] LABS: Albumin, Serum 3.2 g/dL (3.2-5.0); BUN 21 mg/dL (7-18); BUN/Creat Ratio 17.1 RATIO (10-20); Chloride 112 mmol/L (98-107); Creatinine, Serum 1.23 mg/dL (0.70-1.30); EST Glomerular Filtration Rate 60 mL/min (>60); Est Glom Filt Rate - Afr Amer 73 mL/min (>60); Glucose 94 mg/dL (74-106); Phosphorus 3.1 mg/dL (2.5-4.9); Potassium 3.6 mmol/L (3.5-5.1); Sodium Level 144 mmol/L (136-145)
== END | disposition home or self-care (01) ==
LOC: POLAB3 09:48
PROVIDERS: PCP Family Medicine Geriatric Medicine; Visit Provider Internal Medicine Nephrology
DX: N18.31 Chronic kidney disease, stage 3a (principal)
CPT/HCPCS: 36415; 80069

== ENCOUNTER 2024-04-25 09:25 | Inpatient (IN) | payer MEDICARE, SELFPAY ==
[2023-04-13 08:14] VITALS: BMI 24.3
[2024-04-25 09:26] VITALS: BP 117/61; PULSE 79; RESP 16; TEMP 36.4; O2SAT 99; BMI 22.7
[2024-04-25 10:37] LABS: ALB/GLOB Ratio 1.3 RATIO (0.9-2.4); AST(SGOT) 13 U/L (15-37); Alanine Aminotransfer ALT/SGPT 11 U/L (16-61); Albumin, Serum 3.3 g/dL (3.2-5.0); Alkaline Phosphatase 53 U/L (45-117); Anion Gap 7 (5-15); BUN 61 mg/dL (7-18); BUN/Creat Ratio 44.2 RATIO (10-20); Calcium,Total 8.9 mg/dL (8.5-10.1); Chloride 114 mmol/L (98-107); Creatinine, Serum 1.38 mg/dL (0.70-1.30); EST Glomerular Filtration Rate 53 mL/min (>60); Est Glom Filt Rate - Afr Amer 64 mL/min (>60); Estimated Creatinine Clearance 43.88 ml/min; Globulin 2.6 g/dL (2.2-4.2); Glucose 142 mg/dL (74-106); Potassium 3.9 mmol/L (3.5-5.1); Protein, Total 5.9 g/dL (6.4-8.2); Sodium Level 144 mmol/L (136-145); Troponin-I HS 7 pg/mL (3.0-78.0)
[2024-04-25 10:39] LABS: Absolute Lymphocyte Count 2.03 X10^3/uL (0.83-4.51); Absolute Neutrophil Count 5.5 X10^3/uL (2.0-7.7); Basophil# 0.06 X10^3/uL; Basophil% 0.7 % (0-1); Eosinophil# 0.07 X10^3/uL; Eosinophils% 0.8 % (0-5); Hematocrit 29.3 % (40-54); Hemoglobin 9.5 g/dL (13.0-16.5); Lymphocyte # 2.03 X10^3/ul (0.83-4.51); Lymphocyte % 23.8 % (19-41); Mean Corp Hgb Conc 32.4 g/dL (32-36); Mean Corpuscular Hgb 32.8 pg (27.0-32.0); Monocyte# 0.86 X10^3/uL; Monocyte% 10.1 % (0-10); NRBC Flagged by Analyzer 0 % (0-5); Neutrophil # 5.45 X10^3/uL (2.7-7.7); Platelet Count 302 K/mm3 (150-450); RBC Distribution Width CV 12.4 % (11.6-14.6); RBC Distribution Width SD 44.7 fl (35.1-43.9); White Blood Count 8.5 K/mm3 (4.4-11.0)
[2024-04-25 11:29] VITALS: BP 117/66; PULSE 65; RESP 14; TEMP 36.9; O2SAT 96
[2024-04-25 12:43] VITALS: BP 109/71; PULSE 64; RESP 16; TEMP 36.5; O2SAT 99
[2024-04-25 12:51] VITALS: BMI 22.0
[2024-04-25] MEDS: 0.9% Normal Saline (1000mL) 1,000 ML 125 ML IV ×2 (14:02→21:36)
[2024-04-25] MEDS: 0.9% Saline Lock 10 ML Syringe IV (14:02)
[2024-04-25 16:00] VITALS: BP 111/68; PULSE 68; RESP 16; TEMP 36.6; O2SAT 98
[2024-04-25] MEDS: Acetaminophen 325 MG Tablet 650 MG PO (21:35)
[2024-04-25] MEDS: Doxycycline 100 MG CAPSULE PO (21:36)
[2024-04-25] MEDS: Pantoprazole Sodium 40 MG in 0.9% Normal Saline (100mL MB+) 100 ML 330 MG IV (21:36)
[2024-04-25 21:39] VITALS: BP 129/73; PULSE 75; RESP 18; TEMP 36.8; O2SAT 98
[2024-04-26] VITALS (12 sets, daily range): BP systolic 78–128; BP diastolic 53–77; PULSE 67–92; RESP 14–18; TEMP 36.2–36.9; O2SAT 94–99
[2024-04-26 07:00] LABS: Absolute Lymphocyte Count 1.16 X10^3/uL (0.83-4.51); Basophil# 0.03 X10^3/uL; Basophil% 0.6 % (0-1); Eosinophil# 0.12 X10^3/uL; Eosinophils% 2.4 % (0-5); Hematocrit 22.8 % (40-54); Hemoglobin 7.2 g/dL (13.0-16.5); Lymphocyte # 1.16 X10^3/ul (0.83-4.51); Lymphocyte % 23.6 % (19-41); Mean Corp Hgb Conc 31.6 g/dL (32-36); Mean Corpuscular Hgb 31.9 pg (27.0-32.0); Mean Corpuscular Volume 100.9 fL (80-94); Mean Platelet Vol. 9.9 fl (6.2-12.0); Monocyte# 0.55 X10^3/uL; Monocyte% 11.2 % (0-10); NRBC Flagged by Analyzer 0 % (0-5); Neutrophil # 3.04 X10^3/uL (2.7-7.7); Neutrophil % 61.8 % (47-70); Platelet Count 209 K/mm3 (150-450); RBC Distribution Width CV 12.4 % (11.6-14.6); RBC Distribution Width SD 44.5 fl (35.1-43.9); Red Blood Count 2.26 M/mm3 (4.6-6.2); White Blood Count 4.9 K/mm3 (4.4-11.0)
[2024-04-26 07:10] LABS: International Normalized Ratio 1.3; Partial Thromboplast Time 29.4 Seconds (24.1-36.2); Prothrombin Time (Protime)PT. 16.5 SECONDS (11.7-14.9)
[2024-04-26 07:46] LABS: Anion Gap 4 (5-15); BUN 44 mg/dL (7-18); BUN/Creat Ratio 43.1 RATIO (10-20); Calcium,Total 7.9 mg/dL (8.5-10.1); Chloride 118 mmol/L (98-107); Creatinine, Serum 1.02 mg/dL (0.70-1.30); EST Glomerular Filtration Rate 74 mL/min (>60); Est Glom Filt Rate - Afr Amer 90 mL/min (>60); Estimated Creatinine Clearance 57.52 ml/min; Glucose 101 mg/dL (74-106); Potassium 3.9 mmol/L (3.5-5.1); Sodium Level 145 mmol/L (136-145)
[2024-04-26] MEDS: Pantoprazole Sodium 40 MG in 0.9% Normal Saline (100mL MB+) 100 ML 330 MG IV ×2 (11:15→22:42)
[2024-04-26] MEDS: Bisacodyl 5 MG Tablet 20 MG PO (18:20)
[2024-04-26] MEDS: Polyethylene Glycol 3350 BOWEL PREP PO (20:08)
[2024-04-26] MEDS: Doxycycline 100 MG CAPSULE PO (20:12)
[2024-04-26] MEDS: 0.9% Saline Lock 10 ML Syringe IV (22:42)
[2024-04-27] VITALS (10 sets, daily range): BP systolic 84–128; BP diastolic 35–88; PULSE 78–94; RESP 16–18; TEMP 35.8–36.8; O2SAT 93–100; BMI 22.0
[2024-04-27 06:46] LABS: Absolute Lymphocyte Count 0.87 X10^3/uL (0.83-4.51); Absolute Neutrophil Count 8.2 X10^3/uL (2.0-7.7); Basophil# 0.05 X10^3/uL; Basophil% 0.5 % (0-1); Eosinophil# 0.04 X10^3/uL; Eosinophils% 0.4 % (0-5); Hematocrit 24.2 % (40-54); Lymphocyte # 0.87 X10^3/ul (0.83-4.51); Lymphocyte % 8.6 % (19-41); Mean Corp Hgb Conc 33.1 g/dL (32-36); Mean Corpuscular Hgb 32.9 pg (27.0-32.0); Mean Corpuscular Volume 99.6 fL (80-94); Monocyte# 0.85 X10^3/uL; Monocyte% 8.4 % (0-10); NRBC Flagged by Analyzer 0 % (0-5); Neutrophil # 8.22 X10^3/uL (2.7-7.7); Neutrophil % 81.5 % (47-70); Platelet Count 240 K/mm3 (150-450); RBC Distribution Width CV 12.5 % (11.6-14.6); RBC Distribution Width SD 44.1 fl (35.1-43.9); Red Blood Count 2.43 M/mm3 (4.6-6.2); White Blood Count 10.1 K/mm3 (4.4-11.0)
[2024-04-27 07:08] LABS: Anion Gap 4 (5-15); BUN 28 mg/dL (7-18); BUN/Creat Ratio 26.4 RATIO (10-20); Calcium,Total 8.2 mg/dL (8.5-10.1); Chloride 115 mmol/L (98-107); Creatinine, Serum 1.06 mg/dL (0.70-1.30); EST Glomerular Filtration Rate 71 mL/min (>60); Est Glom Filt Rate - Afr Amer 86 mL/min (>60); Estimated Creatinine Clearance 55.35 ml/min; Glucose 111 mg/dL (74-106); Potassium 3.5 mmol/L (3.5-5.1); Sodium Level 143 mmol/L (136-145)
[2024-04-27] MEDS: Pantoprazole Sodium 40 MG in 0.9% Normal Saline (100mL MB+) 100 ML 330 MG IV ×2 (09:55→20:54)
[2024-04-27] MEDS: 0.9% Saline Lock 10 ML Syringe IV (09:56)
[2024-04-27] MEDS: Doxycycline 100 MG CAPSULE PO (20:54)
[2024-04-27] MEDS: Acetaminophen 325 MG Tablet 650 MG PO (20:55)
[2024-04-28 02:56] VITALS: BP 128/72; PULSE 88; RESP 16; TEMP 36.9; O2SAT 95
[2024-04-28] MEDS: 0.9% Saline Lock 10 ML Syringe IV (05:35)
[2024-04-28] MEDS: Levothyroxine 88 MCG Tablet PO (05:35)
[2024-04-28 07:23] LABS: Absolute Lymphocyte Count 0.97 X10^3/uL (0.83-4.51); Basophil# 0.02 X10^3/uL; Basophil% 0.3 % (0-1); Eosinophils% 1.3 % (0-5); Hematocrit 23.2 % (40-54); Hemoglobin 7.7 g/dL (13.0-16.5); Lymphocyte # 0.97 X10^3/ul (0.83-4.51); Lymphocyte % 12.3 % (19-41); Mean Corp Hgb Conc 33.2 g/dL (32-36); Mean Corpuscular Hgb 32.6 pg (27.0-32.0); Mean Corpuscular Volume 98.3 fL (80-94); Monocyte# 0.75 X10^3/uL; Monocyte% 9.5 % (0-10); NRBC Flagged by Analyzer 0 % (0-5); Neutrophil # 6.02 X10^3/uL (2.7-7.7); Platelet Count 249 K/mm3 (150-450); RBC Distribution Width CV 13.2 % (11.6-14.6); RBC Distribution Width SD 44.6 fl (35.1-43.9); Red Blood Count 2.36 M/mm3 (4.6-6.2); White Blood Count 7.9 K/mm3 (4.4-11.0)
[2024-04-28 07:41] LABS: Anion Gap 5 (5-15); BUN 23 mg/dL (7-18); BUN/Creat Ratio 22.5 RATIO (10-20); Calcium,Total 8.2 mg/dL (8.5-10.1); Chloride 115 mmol/L (98-107); Creatinine, Serum 1.02 mg/dL (0.70-1.30); EST Glomerular Filtration Rate 74 mL/min (>60); Est Glom Filt Rate - Afr Amer 90 mL/min (>60); Estimated Creatinine Clearance 57.52 ml/min; Glucose 87 mg/dL (74-106); Potassium 3.2 mmol/L (3.5-5.1); Sodium Level 144 mmol/L (136-145)
[2024-04-28] MEDS: Pantoprazole Sodium 40 MG in 0.9% Normal Saline (100mL MB+) 100 ML 330 MG IV (07:58)
[2024-04-28] MEDS: Doxycycline 100 MG CAPSULE PO (07:58)
[2024-04-28 08:51] VITALS: BP 116/68; PULSE 98; RESP 16; TEMP 36.6; O2SAT 98
== END 2024-04-28 13:23 | disposition home or self-care (01) | DRG 378 ==
LOC: ED 11:31 → PCU 12:18
PROVIDERS: Anesthesiology; Internal Medicine Gastroenterology; Admitting Provider Student in an Organized Health Care Education/Training Program; Emergency Provider Emergency Medicine; PCP Nurse Practitioner Family; Visit Provider Student in an Organized Health Care Education/Training Program
PROC: 0DJ08ZZ Inspection of Upper Intestinal Tract, Via Natural or Artificial Opening Endoscopic (ICD-10-PCS; CPT 43235; principal; 2024-04-26 15:55)
PROC: 0DJD8ZZ Inspection of Lower Intestinal Tract, Via Natural or Artificial Opening Endoscopic (ICD-10-PCS; CPT 45378; principal; 2024-04-27 18:10)
DX: K55.21 Angiodysplasia of colon with hemorrhage (principal); D62 Acute posthemorrhagic anemia; N17.9 Acute kidney failure, unspecified; N18.31 Chronic kidney disease, stage 3a; I12.9 Hypertensive chronic kidney disease with stage 1 through stage 4 chronic kidney disease, or unspecified chronic kidney disease; E03.9 Hypothyroidism, unspecified; I48.91 Unspecified atrial fibrillation; E78.00 Pure hypercholesterolemia, unspecified; I25.10 Atherosclerotic heart disease of native coronary artery without angina pectoris; K44.9 Diaphragmatic hernia without obstruction or gangrene; K63.5 Polyp of colon; K57.30 Diverticulosis of large intestine without perforation or abscess without bleeding; K21.9 Gastro-esophageal reflux disease without esophagitis; K31.89 Other diseases of stomach and duodenum; Z79.01 Long term (current) use of anticoagulants; Z95.5 Presence of coronary angioplasty implant and graft; Z86.718 Personal history of other venous thrombosis and embolism; Z86.73 Personal history of transient ischemic attack (TIA), and cerebral infarction without residual deficits; Z79.890 Hormone replacement therapy; Z79.899 Other long term (current) drug therapy; Z95.1 Presence of aortocoronary bypass graft; Z90.49 Acquired absence of other specified parts of digestive tract; N40.0 Benign prostatic hyperplasia without lower urinary tract symptoms; K63.89 Other specified diseases of intestine
CPT/HCPCS: 36415; 71045; 80048; 80053; 82274; 84443; 84484; 85025; 85610; 85730; 86850; 86900; 86901; 88305; 93005; 99285; J7030; A4216

== ENCOUNTER → 2024-05-10 | Outpatient (CLI) | payer MEDICARE, SELFPAY ==
[2023-04-13 08:14] VITALS: BMI 24.3
[2024-05-10 09:58] LABS: Absolute Lymphocyte Count 1.32 X10^3/uL (0.83-4.51); Absolute Neutrophil Count 4.4 X10^3/uL (2.0-7.7); Basophil# 0.04 X10^3/uL; Basophil% 0.6 % (0-1); Eosinophil# 0.12 X10^3/uL; Eosinophils% 1.8 % (0-5); Hematocrit 27.9 % (40-54); Hemoglobin 8.5 g/dL (13.0-16.5); Lymphocyte # 1.32 X10^3/ul (0.83-4.51); Lymphocyte % 20.2 % (19-41); Mean Corp Hgb Conc 30.5 g/dL (32-36); Mean Corpuscular Hgb 30.1 pg (27.0-32.0); Mean Corpuscular Volume 98.9 fL (80-94); Mean Platelet Vol. 9.5 fl (6.2-12.0); Monocyte# 0.64 X10^3/uL; Monocyte% 9.8 % (0-10); NRBC Flagged by Analyzer 0 % (0-5); Neutrophil # 4.39 X10^3/uL (2.7-7.7); Neutrophil % 67.1 % (47-70); Platelet Count 432 K/mm3 (150-450); RBC Distribution Width CV 13.6 % (11.6-14.6); RBC Distribution Width SD 49.1 fl (35.1-43.9); Red Blood Count 2.82 M/mm3 (4.6-6.2); White Blood Count 6.5 K/mm3 (4.4-11.0)
== END | disposition home or self-care (01) ==
LOC: LAB 08:50
PROVIDERS: PCP Nurse Practitioner Family; Referring Provider Nurse Practitioner Family; Visit Provider Nurse Practitioner Family
DX: I10 Essential (primary) hypertension (principal)
CPT/HCPCS: 36415; 85025

== ENCOUNTER → 2024-05-18 | Outpatient (CLI) | payer MEDICARE, SELFPAY ==
[2023-04-13 08:14] VITALS: BMI 24.3
[2024-05-18 11:19] LABS: Absolute Lymphocyte Count 1.27 X10^3/uL (0.83-4.51); Absolute Neutrophil Count 3.1 X10^3/uL (2.0-7.7); Basophil# 0.04 X10^3/uL; Basophil% 0.8 % (0-1); Eosinophil# 0.16 X10^3/uL; Eosinophils% 3.1 % (0-5); Hematocrit 30.7 % (40-54); Hemoglobin 9.5 g/dL (13.0-16.5); Lymphocyte # 1.27 X10^3/ul (0.83-4.51); Lymphocyte % 24.2 % (19-41); Mean Corp Hgb Conc 30.9 g/dL (32-36); Mean Corpuscular Hgb 29.9 pg (27.0-32.0); Mean Corpuscular Volume 96.5 fL (80-94); Mean Platelet Vol. 9.4 fl (6.2-12.0); Monocyte# 0.66 X10^3/uL; Monocyte% 12.6 % (0-10); NRBC Flagged by Analyzer 0 % (0-5); Neutrophil # 3.08 X10^3/uL (2.7-7.7); Neutrophil % 58.7 % (47-70); Platelet Count 381 K/mm3 (150-450); RBC Distribution Width CV 13.2 % (11.6-14.6); RBC Distribution Width SD 46.8 fl (35.1-43.9); Red Blood Count 3.18 M/mm3 (4.6-6.2); White Blood Count 5.2 K/mm3 (4.4-11.0)
[2024-05-18 11:51] LABS: Ferritin 21 ng/mL (26-388); Iron 24 ug/dL (65-175); Iron Binding Capacity,Total 289 ug/dL (250-450); PERCENT IRON SATURATION 8.3 % (15.0-55.0)
[2024-05-19 08:35] LABS: Vitamin B12 271 pg/mL (211-911)
== END | disposition home or self-care (01) ==
PROVIDERS: PCP Nurse Practitioner Family; Referring Provider Nurse Practitioner Acute Care; Visit Provider Nurse Practitioner Acute Care
DX: D64.9 Anemia, unspecified (principal); R53.83 Other fatigue; R06.02 Shortness of breath; K92.2 Gastrointestinal hemorrhage, unspecified
CPT/HCPCS: 36415; 82607; 82728; 83540; 83550; 85025

== ENCOUNTER → 2024-06-03 | Outpatient (CLI) | payer MEDICARE, SELFPAY ==
[2023-04-13 08:14] VITALS: BMI 24.3
--- NOTE | 2024-06-03 16:30 | RAD_ITS ---
EXAM: XR RIGHT KNEE COMPLETE, 4 OR MORE VIEWS CLINICAL INDICATION: ARTHRITIS? PAIN IN RIGHT KNEE TECHNIQUE: Four or more views of the right knee. COMPARISON: No relevant prior studies available. FINDINGS: BONES/JOINTS: There is mild narrowing of medial knee joint. No acute fracture. No subluxation. Normal alignment. No sclerotic or destructive changes observed. SOFT TISSUES: Unremarkable. No soft tissue swelling or gas. No radiopaque foreign body. RAD/Knee 4 or More Views IMPRESSION: No acute osseous abnormalities. There are mild degenerative changes with narrowing of the medial knee joint. Electronically Signed: Aamir Radford MD at 0:03 EST ,
== END | disposition home or self-care (01) ==
LOC: MTRAD 16:26
PROVIDERS: PCP Nurse Practitioner Family; Referring Provider Nurse Practitioner Family; Visit Provider Nurse Practitioner Family
DX: M25.561 Pain in right knee (principal)
CPT/HCPCS: 73564

== ENCOUNTER → 2024-06-06 | Outpatient (CLI) | payer MEDICARE, SELFPAY ==
[2023-04-13 08:14] VITALS: BMI 24.3
--- NOTE | 2024-06-06 10:12 | VDLE_ITS ---
Reason For Study: Right leg pain RIGHT LEFT GSV is normal. CFV is compressible, spontaneous, phasic, CFV is compressible, spontaneous, phasic, competent, and demonstrates normal competent and demonstrates normal augmentation. augmentation. FV is compressible, spontaneous, phasic, competent and demonstrates normal augmentation. POP V is compressible, spontaneous, phasic, competent and demonstrates normal augmentation. T/P Trunk is compressible. PTV is compressible. RT PerV is compressible. Procedure This is a venous duplex using B-mode, color flow and spectral Doppler. Exam performed in department. A preliminary report was called and/or faxed to [facility]. VL/Venous Duplex US, Unilateral Interpretation Summary Deep veins of the right lower extremity are patent and compressible segmentally . There is no evidence of right lower extremity deep vein thrombosis. The right great sapheno us vein appears patent and compressible segmentally. Ordering Physician: Kayla Rodriguez Referring Physician: Kayla Rodriguez Performed By: Oneida Mcallister RVT
== END | disposition home or self-care (01) ==
LOC: CVS 10:08
PROVIDERS: PCP Nurse Practitioner Family; Referring Provider Nurse Practitioner Family; Visit Provider Nurse Practitioner Family
DX: M79.604 Pain in right leg (principal)
CPT/HCPCS: 93971

== ENCOUNTER → 2024-06-13 | Outpatient (CLI) | payer MEDICARE, SELFPAY ==
[2023-04-13 08:14] VITALS: BMI 24.3
[2024-06-13 18:03] LABS: Absolute Lymphocyte Count 1.13 X10^3/uL (0.83-4.51); Absolute Neutrophil Count 2.5 X10^3/uL (2.0-7.7); Basophil# 0.04 X10^3/uL; Basophil% 0.9 % (0-1); Eosinophil# 0.12 X10^3/uL; Eosinophils% 2.8 % (0-5); Hematocrit 36.4 % (40-54); Hemoglobin 11.5 g/dL (13.0-16.5); Lymphocyte # 1.13 X10^3/ul (0.83-4.51); Mean Corp Hgb Conc 31.6 g/dL (32-36); Mean Corpuscular Volume 98.1 fL (80-94); Mean Platelet Vol. 9.6 fl (6.2-12.0); Monocyte# 0.52 X10^3/uL; NRBC Flagged by Analyzer 0 % (0-5); Neutrophil # 2.53 X10^3/uL (2.7-7.7); Neutrophil % 58.1 % (47-70); Platelet Count 325 K/mm3 (150-450); RBC Distribution Width SD 57.6 fl (35.1-43.9); Red Blood Count 3.71 M/mm3 (4.6-6.2); White Blood Count 4.4 K/mm3 (4.4-11.0)
== END | disposition home or self-care (01) ==
LOC: MTLAB 14:55
PROVIDERS: PCP Nurse Practitioner Family; Referring Provider Nurse Practitioner Acute Care; Visit Provider Nurse Practitioner Acute Care
DX: D64.9 Anemia, unspecified (principal)

== ENCOUNTER → 2024-07-15 | Outpatient (CLI) | payer MEDICARE, SELFPAY ==
[2023-04-13 08:14] VITALS: BMI 24.3
[2024-07-15 13:31] LABS: T4 Free Direct 1.14 ng/dL (0.76-1.46)
== END | disposition home or self-care (01) ==
LOC: BFHLAB 09:54
PROVIDERS: PCP Nurse Practitioner Family; Referring Provider Nurse Practitioner Family; Visit Provider Nurse Practitioner Family
DX: E03.9 Hypothyroidism, unspecified (principal)
CPT/HCPCS: 36415; 84439; 84443

== ENCOUNTER → 2024-07-21 | Outpatient (CLI) | payer MEDICARE, SELFPAY ==
[2023-04-13 08:14] VITALS: BMI 24.3
[2024-07-21 12:26] LABS: Albumin, Serum 3.4 g/dL (3.2-5.0)
[2024-07-21 12:34] LABS: Absolute Lymphocyte Count 1.13 X10^3/uL (0.83-4.51); Absolute Neutrophil Count 3.1 X10^3/uL (2.0-7.7); Basophil# 0.06 X10^3/uL; Basophil% 1.1 % (0-1); Eosinophil# 0.35 X10^3/uL; Eosinophils% 6.6 % (0-5); Hematocrit 43.2 % (40-54); Hemoglobin 13.6 g/dL (13.0-16.5); Lymphocyte # 1.13 X10^3/ul (0.83-4.51); Lymphocyte % 21.4 % (19-41); Mean Corp Hgb Conc 31.5 g/dL (32-36); Mean Corpuscular Hgb 29.8 pg (27.0-32.0); Mean Corpuscular Volume 94.7 fL (80-94); Mean Platelet Vol. 10.6 fl (6.2-12.0); Monocyte% 11.3 % (0-10); NRBC Flagged by Analyzer 0 % (0-5); Neutrophil # 3.14 X10^3/uL (2.7-7.7); Neutrophil % 59.4 % (47-70); Platelet Count 335 K/mm3 (150-450); RBC Distribution Width CV 14.5 % (11.6-14.6); RBC Distribution Width SD 50.1 fl (35.1-43.9); Red Blood Count 4.56 M/mm3 (4.6-6.2); White Blood Count 5.3 K/mm3 (4.4-11.0)
== END | disposition home or self-care (01) ==
LOC: MTLAB 09:58
PROVIDERS: PCP Nurse Practitioner Family; Referring Provider Specialist; Visit Provider Specialist
DX: R79.89 Other specified abnormal findings of blood chemistry (principal)
CPT/HCPCS: 36415; 82040; 85025

== ENCOUNTER 2024-08-16 17:29 | Emergency (ER) | payer MEDICARE, SELFPAY ==
[2023-04-13 08:14] VITALS: BMI 24.3
[2024-08-16 17:32] VITALS: BP 179/84; PULSE 87; RESP 18; TEMP 37.2; O2SAT 100; BMI 22.8
[2024-08-16] MEDS: HYDROcodone Bitartrate/Apap 5/325 Tablet PO (18:00)
--- NOTE | 2024-08-16 18:04 | EX.ED.DYSGE1 ---
HPI <FAHEEM Whitman - Last Filed: 08/16/24 19:40> History of Present Illness Chief Complaint: General Illness Narrative Narrative: Patient presenting today due to failure to thrive at home. He had a right knee replacement performed by Dr. Schneider 2 weeks ago, he was at [facility] for 10 days for rehab, he was discharged home on Thursday. His daughter was staying with him but had to go back to work yesterday. Since then, he has been at home by himself and reports that he is having a hard time getting around due to the pain in his right knee, he is not taking his medications on time due to difficulty ambulating. He is wanting to be admitted to a SNF. His daughter was able to talk with [facility], they do have a bed for him, however, he needs an order placed to be sent there. He reports that he was told to come to the emergency department for this. Otherwise he denies any acute complaints. 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 Wears glasses Thyroid disease History of steroid therapy Prostate disease Bladder disease High cholesterol History of echocardiogram History of stress test Cardiology follow-up encounter H/O Legionnaire's disease (~2019) [place] filter in place Kidney stones GI bleed Pulmonary embolism Coronary artery disease TIA (transient ischemic attack) Postoperative atrial fibrillation Atherosclerotic heart disease of [place] coronary artery without angina pectoris CAD (coronary artery disease) Pulmonary nodule D-dimer, elevated Edema Dyspnea on exertion Essential hypertension BPH (benign prostatic hyperplasia) Nasal sinus polyp DDD (degenerative disc disease) Fibromyalgia Syncope White coat syndrome with hypertension 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 Hemorrhoid Premature ventricular contraction [place] Cardiomyopathy in other diseases classified elsewhere Hyperlipidemia Premature atrial contractions Hypothyroid Acid reflux HTN (hypertension) Home Medications ?Medication ?Instructions ?Recorded ?Last Taken ?Type blood pressure monitor #1 ea 01/15/23 Unknown Rx levothyroxine 88 mcg tablet 88 mcg PO DAILY THYROID 05/29/23 04/25/24 History diphenhydramine 25 2 tab PO QHS Sleep 09/30/23 04/24/24 History mg-acetaminophen 500 mg tablet (Tylenol PM Extra Strength) apixaban 2.5 mg tablet (Eliquis) 2.5 mg PO BID VTE 02/17/24 04/25/24 History metoprolol tartrate 25 mg tablet 25 mg PO BID BLOOD PRESSURE #60 03/21/24 04/25/24 Rx tabs amlodipine 2.5 mg tablet 2.5 mg PO DAILY BP 04/25/24 04/25/24 History cholecalciferol (vitamin D3) 50 50 mcg PO DAILY supplement 04/25/24 04/25/24 History mcg (2,000 unit) capsule doxycycline hyclate 100 mg tablet 100 mg PO BID infection - groin ? 04/25/24 04/25/24 History ascorbate calcium (vitamin C) 500 500 mg PO QDAY #90 tabs 05/18/24 Unknown Rx mg tablet ferrous sulfate 325 mg (65 mg 325 mg PO QDAY #90 tabs 05/18/24 Unknown Rx iron) tablet pantoprazole 40 mg tablet,delayed 40 mg PO QDAY stomach 1 month #30 05/18/24 Unknown Rx release tabs hydrocodone-acetaminophen 5-325mg 1 tab PO Q6H PRN PRN Pain 3 days 08/16/24 Unknown Rx 5mg-325mg #10 TABLETS Allergy/AdvReac Type Severity Reaction Status Date / Time erythromycin base Allergy Hives Verified 08/16/24 17:30 amoxicillin (From Augmentin) AdvReac Severe Itching Verified 08/16/24 17:30 atorvastatin AdvReac Severe myalgias Verified 08/16/24 17:30 clavulanic acid (From AdvReac Severe Itching Verified 05/18/24 10:06 Augmentin) fenofibrate (From Tricor) AdvReac Severe myalgias Verified 08/16/24 17:30 levofloxacin (From Levaquin) AdvReac Unknown Unknown Verified 08/16/24 17:30 Family History Father CVA (cerebral vascular accident) Hypertension Heart disease Mother CAD (coronary artery disease) Brother Hypertension Brother CAD (coronary artery disease) Hypertension Sister Hypertension Sister Patent foramen ovale Sister Hypertension Lung cancer Other Dyspnea on exertion Surgical History History of cardiac catheterization (~02/22/21) Hx of CABG (~2018) History of coronary artery stent placement History of placement of stent in LAD coronary artery (01/05/23) History of coronary artery bypass graft x 3 (~02/26/21) History of radiofrequency ablation procedure for cardiac arrhythmia (~10/2002) History of cholecystectomy Hx of appendectomy History of kidney surgery (~2001) History of back surgery (~1999) H/O hemorrhoidectomy Social History household members: none Smoking Status: Never smoker alcohol intake: never substance use type: does not use ROS <FAHEEM Whitman - Last Filed: 08/16/24 19:40> ROS ED Constitutional Constitutional ED: Denies chills or fever(s) Cardiovascular Cardiovascular: Denies chest pain Respiratory/Chest Respiratory/Chest: Denies dyspnea Gastrointestinal Gastrointestinal: Denies abdominal pain, nausea or vomiting Musculoskeletal Musculoskeletal: Reports arthralgias Integumentary Denies rash Neurologic Neurologic: Denies weakness EXAM <FAHEEM Whitman - Last Filed: 08/16/24 19:40> Physical Exam Const Vital Signs: 08/16/24 17:32 08/16/24 17:37 Temperature 98.9 F Temperature Source Oral Pulse Rate 87 Respiratory Rate 18 Respiratory Effort Normal Non-Labored Blood Pressure 179/84 H Blood Pressure Mean 115 Pulse Ox 100 Oxygen Delivery Method Room Air Positive well nourished, well developed and no apparent distress General Appearance ED: well developed HEENT Reports normocephalic and head/scalp atraumatic Mouth ED: Yes moist mucous membranes normal Eyes PERRL and EOMs intact bilaterally Neck full ROM and supple Chest Wall inspection of chest normal Resp normal respiratory effort and clear to auscultation bilaterally Cardio regular rate and regular rhythm Back/Spine normal ROM and normal to inspection Extremity normal to inspection Extremity Narrative: Right knee surgical incision without any dehiscence, purulent discharge, warmth, or erythema General Extremety ED: Negative for edema General Extremity: Negative for edema Neuro oriented x3, moves all extremities, no focal motor deficits and no sensory deficits noted Sensorium / Orientation: awake and alert Psych mental status grossly normal and thought process normal Skin no rashes or lesions noted and no wounds <Dr. Rl Cadena DO - Last Filed: 08/16/24 18:37> Physical Exam Const Vital Signs: 08/16/24 17:32 08/16/24 17:37 Temperature 98.9 F Temperature Source Oral Pulse Rate 87 Respiratory Rate 18 Respiratory Effort Normal Non-Labored Blood Pressure 179/84 H Blood Pressure Mean 115 Pulse Ox 100 Oxygen Delivery Method Room Air [facility] <FAHEEM Whitman - Last Filed: 08/16/24 19:40> [facility] Narrative Medical decision making narrative: Patient presenting requesting to be transferred to a SNF due to difficulty ambulating around his home following a right knee replacement performed [address] Schneider. He otherwise does not have any acute complaints. Family has been in contact with [facility] who is willing to accept him, they just need an order to be placed. He was given a [facility] here for his knee pain. His knee otherwise is looking good without any signs of infection. I spoke with the geriatric social work professor who was able to arrange placement at [facility]. I do not feel that any further workup is indicated. His daughter will transport him. He will be discharged in stable condition. <Dr. Rl Cadena, - Last Filed: 08/16/24 18:37> [facility] History & Record Review Discussion w/independent historian: Patient and Family Treatment and Re-Evaluation :: I have personally performed a face to face assessment of the patient and have reviewed the BEBO Note. I performed a substantive portion of the visit including all aspects of the following. My solis findings include: History is 83-year-old male 2 weeks postop from a left knee replacement presenting to the emergency department with an inability care for self. Patient is trying to get to nursing home facility. He was [facility] from [facility]. He states he is behind on his rehabilitation due to scheduling. [facility] has availability to take him tonight. He does not have any specific complaints other than needing assistance. Exam is alert oriented x 3 clinically appears well. Postoperative changes of the left leg. Medical Decison Making we will work with social work to see if we can get him to a facility tonight. If not we can certainly admit him for failure to thrive. However he looks clinically well and we should be able to get him to SNF tonight. Discharge Plan Triage Chief Complaint: General Illness ED Midlevel Provider: Vanesa Ko ED Provider: Rl Cadena Dx/Rx/DC Orders Clinical Impression: Adult failure to thrive, Difficulty walking, Acute postoperative pain of right knee Instructions: Managing Post-Op Pain at Home Prescriptions: New hydrocodone-acetaminophen 5-325 mg tablet 1 tab PO Q6H PRN PRN (Reason: Pain) 3 Days Qty: 10 0RF No Action (DME) blood pressure monitor Kit See Rx Instructions .Route Qty: 1 0RF Rx Instructions: As directed Eliquis 2.5 mg tablet 2.5 mg PO BID pantoprazole 40 mg tablet,delayed release (DR/EC) 40 mg PO QDAY 30 Days Qty: 30 2RF ferrous sulfate 325 mg (65 mg iron) tablet 325 mg PO QDAY Qty: 90 0RF ascorbate calcium (vitamin C) 500 mg tablet 500 mg PO QDAY Qty: 90 0RF levothyroxine 88 mcg tablet 88 mcg PO DAILY diphenhydramine-acetaminophen [Tylenol PM Extra Strength] 25-500 mg tablet 2 tab PO QHS cholecalciferol (vitamin D3) 50 mcg (2,000 unit) capsule 50 mcg PO DAILY amlodipine 2.5 mg tablet 2.5 mg PO DAILY doxycycline hyclate 100 mg tablet 100 mg PO BID metoprolol tartrate 25 mg tablet 25 mg PO BID Qty: 60 11RF Primary Care Provider: Kayla Rodriguez Referrals: Kayla Rodriguez, FISCAL ECONOMIST-C [Primary Care Provider] - Activity Restrictions/Additional Instructions: May discharge to a SNF. Print Language: Spanish Disposition Disposition: Inpatient Rehab Unit/Facility Discharge Location: [facility] Discharge Date/Time: 08/16/24 19:21
--- NOTE | 2024-08-16 19:39 | CM.ED ---
Social Work SW spoke with patient and patients daughter. Patient had knee surgery two weeks ago, spent 10 days in [place] and was discharged. Patients daughter stated that she stayed with him over the weekend, but both patient and patients daughter state that patient needs more time in a rehab center. Patients daughter had been in contact with [facility] and states that everything is ready for patient to admit, that they were told to come to the ER for a discharge order. SW contacted admissions at [facility], admission director stated that she had all necessary paper work and only needed the discharge orders and PASRR. All paperwork completed and sent to [facility] via [employer]. Patient to discharge to SNF. Shani Meza, BLENDING TANK TENDER HELPER, FULLER BRUSH WORKER
== END 2024-08-16 19:21 ==
LOC: ED 18:41
PROVIDERS: Emergency Provider Emergency Medicine; PCP Nurse Practitioner Family; Visit Provider Emergency Medicine
DX: R62.7 Adult failure to thrive (principal); N18.31 Chronic kidney disease, stage 3a; M25.561 Pain in right knee; I25.10 Atherosclerotic heart disease of native coronary artery without angina pectoris; I12.9 Hypertensive chronic kidney disease with stage 1 through stage 4 chronic kidney disease, or unspecified chronic kidney disease; R26.2 Difficulty in walking, not elsewhere classified; E78.00 Pure hypercholesterolemia, unspecified; Z98.890 Other specified postprocedural states; Z96.651 Presence of right artificial knee joint; Z86.73 Personal history of transient ischemic attack (TIA), and cerebral infarction without residual deficits; E03.9 Hypothyroidism, unspecified; Z79.01 Long term (current) use of anticoagulants; Z79.890 Hormone replacement therapy; Z79.899 Other long term (current) drug therapy; K21.9 Gastro-esophageal reflux disease without esophagitis; Z95.5 Presence of coronary angioplasty implant and graft; Z90.49 Acquired absence of other specified parts of digestive tract
CPT/HCPCS: 99282

== ENCOUNTER → 2024-08-17 | Outpatient (REF) | payer OTHER, SELFPAY ==
[2023-04-13 08:14] VITALS: BMI 24.3
[2024-08-17 09:03] LABS: Hematocrit 31.6 % (40-54); Hemoglobin 10.4 g/dL (13.0-16.5); Mean Corp Hgb Conc 32.9 g/dL (32-36); Mean Corpuscular Hgb 31.3 pg (27.0-32.0); Mean Corpuscular Volume 95.2 fL (80-94); Mean Platelet Vol. 9.3 fl (6.2-12.0); Platelet Count 569 K/mm3 (150-450); RBC Distribution Width CV 15.9 % (11.6-14.6); RBC Distribution Width SD 52.1 fl (35.1-43.9); Red Blood Count 3.32 M/mm3 (4.6-6.2); White Blood Count 6.4 K/mm3 (4.4-11.0)
[2024-08-17 09:44] LABS: Anion Gap 11 (5-15); BUN 31 mg/dL (4-19); BUN/Creat Ratio 27.4 RATIO (10-20); Calcium,Total 8.9 mg/dL (7.6-11.0); Chloride 105 mmol/L (98-108); Cholesterol 177 mg/dL (<=200); Creatinine, Serum 1.14 mg/dL (0.70-1.20); EST Glomerular Filtration Rate 65 (>60); Glucose 77 mg/dL (70-99); High Density Lipoprotein 26 mg/dL; Low Density Lipoprotein Calc. 112 mg/dL; Magnesium 2.3 mg/dL (1.5-2.2); Potassium 4.4 mmol/L (3.3-5.1); Sodium Level 139 mmol/L (133-145); Triglycerides 195 mg/dL; Very Low Density Lipoprotein 39 mg/dL (5-40); cholesterol:hdl ratio screen 6.81
[2024-08-17 10:09] LABS: Vitamin B12 971 pg/mL (180-914); Vitamin D,25 Hydroxy 60.1 ng/mL (30-100)
== END ==
LOC: OLS.SW 05:00
PROVIDERS: PCP Nurse Practitioner Family; Visit Provider Internal Medicine
DX: Z02.2 Encounter for examination for admission to residential institution (principal)
CPT/HCPCS: 36415; 80048; 80061; 82306; 82607; 83735; 84443; 85027

== ENCOUNTER → 2024-08-24 | Outpatient (REF) | payer OTHER, SELFPAY ==
[2023-04-13 08:14] VITALS: BMI 24.3
[2024-08-24 08:38] LABS: Hematocrit 35.6 % (40-54); Hemoglobin 11.5 g/dL (13.0-16.5); Mean Corp Hgb Conc 32.3 g/dL (32-36); Mean Corpuscular Hgb 30.3 pg (27.0-32.0); Mean Corpuscular Volume 93.9 fL (80-94); Mean Platelet Vol. 9.3 fl (6.2-12.0); Platelet Count 491 K/mm3 (150-450); RBC Distribution Width CV 15.3 % (11.6-14.6); RBC Distribution Width SD 50.8 fl (35.1-43.9); Red Blood Count 3.79 M/mm3 (4.6-6.2); White Blood Count 5.1 K/mm3 (4.4-11.0)
[2024-08-24 09:11] LABS: Anion Gap 10 (5-15); BUN 29 mg/dL (4-19); BUN/Creat Ratio 26.6 RATIO (10-20); Calcium,Total 7.2 mg/dL (7.6-11.0); Carbon Dioxide 24.1 mmol/L (21.0-32.0); Chloride 107 mmol/L (98-108); Creatinine, Serum 1.07 mg/dL (0.70-1.20); EST Glomerular Filtration Rate 70 (>60); Glucose 88 mg/dL (70-99); Magnesium 2.4 mg/dL (1.5-2.2); Potassium 4.3 mmol/L (3.3-5.1); Sodium Level 142 mmol/L (133-145)
== END ==
LOC: OLS.SW 05:00
PROVIDERS: PCP Nurse Practitioner Family; Visit Provider Internal Medicine
DX: N18.30 Chronic kidney disease, stage 3 unspecified (principal); E87.5 Hyperkalemia
CPT/HCPCS: 36415; 80048; 83735; 85027

== ENCOUNTER → 2024-09-30 | Outpatient (CLI) | payer MEDICARE, SELFPAY ==
[2023-04-13 08:14] VITALS: BMI 24.3
[2024-09-30 18:07] LABS: Albumin, Serum 3.7 g/dL (3.4-4.8); Anion Gap 10 (5-15); BUN 19 mg/dL (4-19); BUN/Creat Ratio 17.4 RATIO (10-20); Carbon Dioxide 24.5 mmol/L (21.0-32.0); Chloride 108 mmol/L (98-108); Creatinine, Serum 1.09 mg/dL (0.70-1.20); EST Glomerular Filtration Rate 68 (>60); Glucose 82 mg/dL (70-99); Phosphorus 3.4 mg/dL (2.7-4.5); Potassium 4.1 mmol/L (3.3-5.1); Sodium Level 142 mmol/L (133-145)
== END | disposition home or self-care (01) ==
LOC: MTLAB 15:39
PROVIDERS: PCP Nurse Practitioner Family; Referring Provider Internal Medicine Nephrology; Visit Provider Internal Medicine Nephrology
DX: N18.31 Chronic kidney disease, stage 3a (principal)
CPT/HCPCS: 36415; 80069

== ENCOUNTER 2024-11-14 14:19 | Emergency (ER) | payer MEDICARE, SELFPAY ==
[2023-04-13 08:14] VITALS: BMI 24.3
[2024-11-14 14:20] VITALS: BP 108/92; PULSE 68; RESP 15; TEMP 36.4; O2SAT 99
--- NOTE | 2024-11-14 15:09 | EDS_ITS ---
HPI History of Present Illness Chief Complaint: Lower Extremity Injury Detail of Chief Complaint: Right knee pain Informant: patient Narrative Narrative: Patient presents with right knee pain that started 2 weeks ago. He denies injury. Patient states that he had a total knee replacement in July by Dr. Schneider. States it felt better after surgery than he currently feels. He cannot get in until November to see Dr. Schneider. He denies fevers or chills or sweats. Denies any significant swelling or erythema. He feels like maybe sometimes it feels a little warm but it has ever since his surgery. He is also anticoagulated on Eliquis. [facility] Medical History (Updated 11/14/24 @ 17:[address] 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 Wears glasses Thyroid disease History of steroid therapy Prostate disease Bladder disease High cholesterol History of echocardiogram History of stress test Cardiology follow-up encounter H/O Legionnaire's disease (~2018) [place] filter in place Kidney stones GI bleed Pulmonary embolism Coronary artery disease TIA (transient ischemic attack) Postoperative atrial fibrillation Atherosclerotic heart disease of [place] coronary artery without angina pectoris CAD (coronary artery disease) Pulmonary nodule D-dimer, elevated Edema Dyspnea on exertion Essential hypertension BPH (benign prostatic hyperplasia) Nasal sinus polyp DDD (degenerative disc disease) Fibromyalgia Syncope White coat syndrome with hypertension 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 Hemorrhoid Premature ventricular contraction [place] Cardiomyopathy in other diseases classified elsewhere Hyperlipidemia Premature atrial contractions Hypothyroid Acid reflux HTN (hypertension) Home Medications ?Medication ?Instructions ?Recorded ?Last Taken ?Type blood pressure monitor #1 ea 01/15/23 Unknown Rx levothyroxine 88 mcg tablet 88 mcg PO DAILY THYROID 04/25/24 History diphenhydramine 25 2 tab PO QHS Sleep 09/30/23 04/24/24 History mg-acetaminophen 500 mg tablet (Tylenol PM Extra Strength) cholecalciferol (vitamin D3) 50 50 mcg PO DAILY supple ment 04/25/24 04/25/24 History mcg (2,000 unit) capsule doxycycline hyclate 100 mg tablet 100 mg PO BID infect ion - groin ? 04/25/24 04/25/24 History ascorbate calcium (vitamin C) 500 500 mg PO QDAY #90 t abs 05/18/24 Unknown Rx mg tablet ferrous sulfate 325 mg (65 mg 325 mg PO QDAY #90 tabs 05/18/24 Unknown Rx iron) tablet pantoprazole 40 mg tablet,delayed 40 mg PO QDAY stomac h 1 month #30 05/18/24 Unknown Rx release tabs hydrocodone-acetaminophen 5-325mg 1 tab PO Q6H PRN PRN Pain 3 days 08/16/24 Unknown Rx 5mg-325mg #10 TABLETS apixaban 5 mg tablet (Eliquis) 5 mg PO BID 11/01/24 Un known History aspirin 81 mg tablet,delayed 81 mg PO QDAY #90 tabs Unknown Rx release (Adult Aspirin Regimen) escitalopram oxalate 20 mg tablet 20 mg PO QHS 5 Unknown History metoprolol succinate 25 mg 25 mg PO QDAY #90 tabs 08/23 Unknown Rx tablet,extended release 24 hr naproxen 500 mg tablet 500 mg PO BID 11/01/24 Unkno wn History tramadol 50 mg tablet 25 mg PO Q6 PRN pain 5 Unknown History colesevelam 625 mg tablet (WelChol) 1,875 mg (3 x 625 mg) PO BID #90 11/04/24 Unknown Rx tabs hydrocodone-acetaminophen 5-325mg 1 tab PO Q4H PRN PRN Pain 2 days 11/14/24 Unknown Rx 5mg-325mg #10 TABLETS Allergy/AdvReac Type Severity Reaction Status Date / Time erythromycin base Allergy Hives Verified 11/14/24 14:20 amoxicillin (From Augmentin) AdvReac Severe Itching Verified 11/14/24 14:20 atorvastatin AdvReac Severe myalgias Verified 11/14/24 14:20 clavulanic acid (From AdvReac Severe Itching Verified 11/14/24 14:20 Augmentin) fenofibrate (From Tricor) AdvReac Severe myalgias Verified 11/14/24 14:20 levofloxacin (From Levaquin) AdvReac Unknown Unknown Verified 11/14/24 14:20 Family History Father CVA (cerebral vascular accident) Hypertension Heart disease Mother CAD (coronary artery disease) Brother Hypertension Brother CAD (coronary artery disease) Hypertension Sister Hypertension Sister Patent foramen ovale Sister Hypertension Lung cancer Other Dyspnea on exertion Surgical History S/P knee surgery History of cardiac catheterization (~02/22/21) Hx of CABG (~2018) History of coronary artery stent placement History of placement of stent in LAD coronary artery (01/05/23) History of coronary artery bypass graft x 3 (~02/26/21) History of radiofrequency ablation procedure for cardiac arrhythmia (~10/2002) History of cholecystectomy Hx of appendectomy History of kidney surgery (~2001) History of back surgery (~1999) H/O hemorrhoidectomy Social History household members: none Smoking Status: Never smoker alcohol intake: never substance use type: does not use ROS ROS ED Review of Systems ROS Unobtainable: other Constitutional Constitutional ED: Reports lethargy; Denies chills, fever(s), sweats or weight loss Eyes Eyes: Denies blurry vision, change in vision or diplopia ENT ENT ED: Denies rhinorrhea or sore throat Cardiovascular Cardiovascular: Denies chest pain, orthopnea or racing heartbeat Respiratory/Chest Respiratory/Chest: Denies cough, dyspnea, dyspnea on exertion, orthopnea or sputum Gastrointestinal Gastrointestinal: Denies abdominal pain, diarrhea, nausea or vomiting Genitourinary Genitourinary ED: Denies dysuria, hematuria or urinary frequency Musculoskeletal Musculoskeletal: Reports other Details: Knee pain ; Denies arthralgias, back pain, myalgias or neck pain Integumentary Denies abscess, Abrasions or rash Neurologic Neurologic: Denies headache(s) or weakness Psychiatric Psychiatric: Denies anxiety, depression or suicidal thoughts Endocrine Endocrinology: Denies polydipsia, polyphagia or polyuria Hematologic/Lymphatic Hematologic/Lymphatic: Denies easy bleeding, easy bruising or lymphadenopathy Allergic/Immunologic Allergic/Immunologic ED: Denies mouth swelling, tongue swelling or urticaria EXAM Physical Exam Const Vital Signs: 11/14/24 14:20 11/14/24 16:19 Temperature 97.5 F L Temperature Source Oral Pulse Rate 68 54 L Respiratory Rate 15 18 Blood Pressure 108/92 H 171/92 H Blood Pressure Mean 97 118 Pulse Ox 99 98 Oxygen Delivery Method Room Air Room Air Positive well nourished and well developed General Appearance ED: well developed and NAD HEENT Reports TM's clear and moist mucous membranes normocephalic and atraumatic; Negative for trauma or tenderness Tympanic Membrane ED: Yes TM's clear Eyes PERRL and EOMs intact bilaterally General Eye ED: Negative for pale conjunctiva or scleral icterus Neck no lymphadenopathy, supple and no JVD General: Negative for tenderness Chest Wall inspection of chest normal and palpation of chest normal Chest: Negative for tenderness Resp normal respiratory effort and clear to auscultation bilaterally Effort and Inspection: Negative for respiratory distress or pain with movement Auscultation: Negative for rhonchi, wheezes or diminished lung sounds Cardio regular rate, regular rhythm, S1 normal heart sound, S2 normal heart sound and no murmurs Peripheral Pulses: pulses 2+ throughout GI normal to inspection, nondistended, normoactive bowel sounds, soft to palpation, non-tender, non-distended and no masses Back/Spine no CVA tenderness and no thoracic nor lumbar tenderness Extremity Extremity Narrative: Right knee-no effusion noted. There is no erythema or warmth. He has pain with range of motion but able to flex and extend the knee. Patient also with tenderness to the medial and lateral joint lines. Neurovascular intact distally. General Extremety ED: Negative for edema General Extremity: Negative for edema Neuro oriented x3, CN's II-XII intact bilaterally, no sensory deficits noted and gait normal Sensorium / Orientation: awake, alert, oriented to person, oriented to place and oriented to time Motor Exam: strength 5/5 throughout and strength abnormal Psych mental status grossly normal Skin no rashes or lesions noted and no wounds MDM MDM MDM Narrative Medical decision making narrative: Patient presents with atraumatic right knee pain. Patient had a total right knee replacement done in July by Dr. Schneider. There is no evidence of effusion or erythema or warmth. No signs for infection. 4 view x-rays of the right knee obtained showed no fractures or effusions or acute process. I did perform a CBC with differential that showed a normal white count of 5.6 with hemoglobin 13 and platelet count of 298. Patient's sed rate was normal at 7 and C-reactive protein was slightly elevated 7.31. This point etiology of his pain unclear. Will discuss case with orthopedics on-call for follow-up. Lab Data Attestation: I reviewed the patient's lab results. Labs: Laboratory Results - last 24 hr 11/14/24 16:01 WBC 5.6 RBC 4.36 L Hgb 13.5 Hct 40.6 MCV 93.1 MCH 31.0 MCHC 33.3 RDW Std Deviation 43.3 RDW Coeff of Sukumar 12.6 Plt Count 298 MPV 9.6 Immature Gran % (Auto) 0.200 Neut % (Auto) 64.0 Lymph % (Auto) 21.8 Prentiss % (Auto) 11.3 H Eos % (Auto) 2.0 Baso % (Auto) 0.7 Absolute Neuts (auto) 3.6 Absolute Lymphs (auto) 1.22 Nucleated RBC % 0 ESR 7 C-React Prot Ext Range 7.31 H Radiography Diagnostic Testing: Clinical Impression(s) from Imaging Studies Knee X-Ray 11/14/24 15:40 IMPRESSION: Status post right knee total arthroplasty without obvious hardware complication. [facility] Discharge Plan Triage Chief Complaint: Lower Extremity Injury ED Provider: Franck Good Dx/Rx/DC Orders Clinical Impression: Acute pain of right knee Instructions: ED Pain, Acute, Uncertain Cause Prescriptions: New hydrocodone-acetaminophen 5-325 mg tablet 1 tab PO Q4H PRN PRN (Reason: Pain) 2 Days Qty: 10 0RF No Action (DME) blood pressure monitor Kit See Rx Instructions .Route Qty: 1 0RF Rx Instructions: As directed pantoprazole 40 mg tablet,delayed release (DR/EC) 40 mg PO QDAY 30 Days Qty: 30 2RF ferrous sulfate 325 mg (65 mg iron) tablet 325 mg PO QDAY Qty: 90 0RF ascorbate calcium (vitamin C) 500 mg tablet 500 mg PO QDAY Qty: 90 0RF tramadol 50 mg tablet 25 mg PO Q6 PRN (Reason: pain) naproxen 500 mg tablet 500 mg PO BID escitalopram oxalate 20 mg tablet 20 mg PO QHS Eliquis 5 mg tablet 5 mg PO BID aspirin [Adult Aspirin Regimen] 81 mg tablet,delayed release (DR/EC) 81 mg PO QDAY Qty: 90 3RF metoprolol succinate 25 mg tablet extended release 24 hr 25 mg PO QDAY Qty: 90 3RF levothyroxine 88 mcg tablet 88 mcg PO DAILY diphenhydramine-acetaminophen [Tylenol PM Extra Strength] 25-500 mg tablet 2 tab PO QHS cholecalciferol (vitamin D3) 50 mcg (2,000 unit) capsule 50 mcg PO DAILY doxycycline hyclate 100 mg tablet 100 mg PO BID hydrocodone-acetaminophen 5-325 mg tablet 1 tab PO Q6H PRN PRN (Reason: Pain) 3 Days Qty: 10 0RF colesevelam [WelChol] 625 mg tablet 1,875 mg PO BID Qty: 90 11RF Primary Care Provider: Kayla Rodriguez Referrals: Stef Schneider MD [Med Staff - Active Staff] - Keep Allison appointment Kayla Rodriguez, CYLINDER MACHINE OPERATOR-C [Primary Care Provider] - Activity Restrictions/Additional Instructions: If you continue to have significant discomfort call the orthopedic surgeons office to see if you can get an appointment sooner than scheduled. Print Language: Urdu Disposition Disposition: Home, Self Care
--- NOTE | 2024-11-14 15:40 | RAD_ITS ---
PROCEDURE: KNEE 4 OR MORE VIEWS 11/14/2024 REASON FOR EXAM: PAIN TECHNIQUE: KNEE 4 OR MORE VIEWS COMPARISON: June 03, 2024 knee radiograph FINDINGS: Bones: Normal bone mineralization. Since the prior study there has been placement of total knee arthroplasty hardware. Joints: The total knee arthroplasty hardware is intact and well-positioned. No obvious complication. Effusion: No appreciable effusion. Soft tissues: Unremarkable Other: RAD/Knee 4 or More Views IMPRESSION: Status post right knee total arthroplasty without obvious hardware complication . Reading Location: [facility]
[2024-11-14 16:19] VITALS: BP 171/92; PULSE 54; RESP 18; O2SAT 98
[2024-11-14 16:36] LABS: CRP 7.31 mg/L (0.0-3.0)
[2024-11-14 16:48] LABS: Absolute Lymphocyte Count 1.22 X10^3/uL (0.83-4.51); Absolute Neutrophil Count 3.6 X10^3/uL (2.0-7.7); Basophil# 0.04 X10^3/uL; Basophil% 0.7 % (0-1); Eosinophil# 0.11 X10^3/uL; Hematocrit 40.6 % (40-54); Hemoglobin 13.5 g/dL (13.0-16.5); Lymphocyte # 1.22 X10^3/ul (0.83-4.51); Lymphocyte % 21.8 % (19-41); Mean Corp Hgb Conc 33.3 g/dL (32-36); Mean Corpuscular Volume 93.1 fL (80-94); Mean Platelet Vol. 9.6 fl (6.2-12.0); Monocyte# 0.63 X10^3/uL; Monocyte% 11.3 % (0-10); NRBC Flagged by Analyzer 0 % (0-5); Neutrophil # 3.58 X10^3/uL (2.7-7.7); Platelet Count 298 K/mm3 (150-450); RBC Distribution Width CV 12.6 % (11.6-14.6); RBC Distribution Width SD 43.3 fl (35.1-43.9); Red Blood Count 4.36 M/mm3 (4.6-6.2); White Blood Count 5.6 K/mm3 (4.4-11.0)
[2024-11-14 16:51] LABS: Erythrocyte Sedimentation Rate 7 mm/hr (0-20)
== END 2024-11-14 17:46 | disposition home or self-care (01) ==
PROVIDERS: Emergency Provider Emergency Medicine; PCP Nurse Practitioner Family; Visit Provider Emergency Medicine
DX: M25.561 Pain in right knee (principal); N18.31 Chronic kidney disease, stage 3a; Z96.651 Presence of right artificial knee joint; I12.9 Hypertensive chronic kidney disease with stage 1 through stage 4 chronic kidney disease, or unspecified chronic kidney disease; E78.00 Pure hypercholesterolemia, unspecified; I25.10 Atherosclerotic heart disease of native coronary artery without angina pectoris; Z86.73 Personal history of transient ischemic attack (TIA), and cerebral infarction without residual deficits; N40.0 Benign prostatic hyperplasia without lower urinary tract symptoms; M79.7 Fibromyalgia; E03.9 Hypothyroidism, unspecified; K21.9 Gastro-esophageal reflux disease without esophagitis; Z95.1 Presence of aortocoronary bypass graft; Z87.19 Personal history of other diseases of the digestive system; Z79.01 Long term (current) use of anticoagulants; Z90.49 Acquired absence of other specified parts of digestive tract; Z79.82 Long term (current) use of aspirin; Z86.711 Personal history of pulmonary embolism; Z86.718 Personal history of other venous thrombosis and embolism; Z79.899 Other long term (current) drug therapy; Z79.890 Hormone replacement therapy
CPT/HCPCS: 73564; 85025; 85652; 86140; 99282

== ENCOUNTER → 2025-01-05 | Outpatient (CLI) | payer MEDICARE, SELFPAY ==
[2023-04-13 08:14] VITALS: BMI 24.3
--- OUTSIDE RECORDS SUMMARY | 2025-01-03 18:53 | XMS RPT_ITS | CCD ---
Author Organization [facility] Care Team Providers Care Clinical Specialist Name Role Phone Cordelia Rivera Unavailable Unavailable Cordelia Rivera Unavailable Unavailable Fast DO, Sherron A Unavailable Jovanni Claudia FONTAINE Unavailable Myrna Rivas RN Unavailable Unavailable Unavailable Unavailable Dr. Javi Bates Referring Provider Dr. Geovanny Michelle Attending Provider [phone] [place], Dr. Jose Sewell Primary Care Provider Dr. Winston Mclaughlin Attending Provider Dr. Kishore Eid Referring Provider [place], Dr. Jose Sewell Referring Provider FAHEEM Bob Attending Provider [place], Dr. Jose Sewell Primary Care Provider [place], Dr. Jose Sewell Primary Care Provider Jes[place], Dr. Jose Sewell Referring Provider FAHEEM Bob Attending Provider [place], Dr. oJse Sewell Primary Care Provider Jes[place], Dr. Jose Sewell Referring Provider FAHEEM Bob Attending Provider [place], Dr. Jose Sewell Other Provider Dr. Wilder Cho Attending Provider Dr. Winston Mclaughlin Attending Provider Dr. Jose Hooks Chi Primary Care Provider [place], Dr. Jose Sewell Referring Provider FAHEEM Bob Attending Provider [place], Dr. Jose Sewell Other Provider Dr. Wilder Cho Attending Provider Dr. Winston Mclaughlin Attending Provider FAHEEM Bob Referring Provider [place], Dr. Jose Sewell Primary Care Provider Jes[place], Dr. Jose Sewell Referring Provider FAHEEM Bob Attending Provider Cyrus 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, 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-C Myrna Attending Provider [place], Dr. Jose Sewell Primary Care Provider Jes[place], Dr. Jose Sewell Referring Provider [phone])[phone] [place], Dr. Jose Sewell Primary Care Provider 1([facility])[phone] Jes[place], Dr. Jose Sewell Referring Provider Cyrus 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, 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-C Myrna Attending Provider [place], Dr. Jose Sewell Primary Care Provider 1([facility])[phone] [place], Dr. Jose Sewell Referring Provider Dr. Eliseo Pittman Attending Provider [phone]([facility])[phone] Melody Whitmore Attending Provider 1([facility])[phone] Cyrus BERRY, 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-C Myrna Referring Provider Cyrus 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, 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-C Myrna Other Provider [phone] Cyrus 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, 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-C Myrna Attending Provider [place], Dr. Jose Sewell Primary Care Provider [place], Dr. Jose Sewell Referring Provider Dr. Eliseo Pittman Attending Provider [place], Dr. Jose Sewell Primary Care Provider Dr. Melody Whitmore Attending Provider [place], Dr. Jose Sewell Referring Provider Cyrus 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, 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-C Myrna Attending Provider Dr. Jose Hooks Chi Primary Care Provider Dr. Jose Hooks Chi Primary Care Provider [place], Dr. Jose Sewell Referring Provider Cyrus 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, 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-C Myrna Attending Provider Dr. Rl Cadena Emergency Provider [phone] Lm Delaney Admit Provider Dr. Lm Delaney Attending Provider Dr. Lm Delaney Other Provider Dr. Yany Siu Other Provider Dr. Deborah Drake Other Provider MD Yesi Olson Other Provider [phone] MS Kole Morales Other Provider MD Joycelyn Rey Other Provider [phone] MD NATALIIA GARCIA Other Provider MD Mabel Stewart Other Provider Dr. Sofia Noriega Other Provider MD Jay Fatima Other Provider [phone] MD Ilene Parekh Other Provider MD Cong Salas Other Provider Unavailable MD Carol Sneed Other Provider Unavailable Dr. Emely Purcell Other Provider Dr. Jaxon Gupta Other Provider [phone] Dr. Nathalie Jeter Other Provider Dr. Ezequiel Portillo Other Provider Dr. Bindu Vazquez Other Provider Dr. Melvina Luis Other Provider Dr. Ralph Sánchez Other Provider [phone] Dr. Merari Alonso Other Provider Dr. Emre Mcintyre Other Provider Dr. Maximo Minor Other Provider Dr. Louis Carranza Other Provider Dr. Sheryl Ca Other Provider Unavailable MD Raffaele Bustillos Other Provider Unavailable Dr. Stephanie Zapata Attending Provider Dr. Fred Tam Referring Provider [phone] Fred Tam Emergency Provider Dr. Kusum Bishop Admit Provider Dr. Kusum Bishop Other Provider Dr. Jaya Almanza Other Provider [place], Dr. España Attending Provider [phone] Jaya Almanza Attending Provider Dr. Lm Maxwell Other Provider Dr. Lm Maxwell Attending Provider [phone])[phone] Lm Maxwell Referring Provider 1([facility])[phone] FAHEEM Abad Attending Provider Dr. Jose Hooks Chi Primary Care Provider Dr. Rl Cadena Emergency Provider [phone] Lm Delaney Admit Provider Dr. Lm Delaney Attending Provider Dr. Lm Delaney Other Provider Dr. Yany Siu Other Provider Dr. Deborah Drake Other Provider MD Yesi Olson Other Provider MS Kole Morales Other Provider MD Joycelyn Rey Other Provider MD NATALIIA GARCIA Other Provider MD Mabel Stewart Other Provider Dr. Sofia Noriega Other Provider MD Jay Fatima Other Provider MD Ilene Parekh Other Provider MD Cong Salas Other Provider Unavailable MD Carol Sneed Other Provider Unavailable Dr. Emely Purcell Other Provider Dr. Jaxon Gupta Other Provider Dr. Nathalie Jeter Other Provider Dr. Ezequiel Portillo Other Provider Dr. Bindu Vazquez Other Provider Dr. Melvina Luis Other Provider Dr. Ralph Sánchez Other Provider Dr. Merari Alonso Other Provider Dr. Emre Mcintyre Other Provider [phone] Dr. Maximo Minor Other Provider Dr. Louis Carranza Other Provider Dr. Sheryl Ca Other Provider Unavailable MD Raffaele Bustillos Other Provider Unavailable Dr. Stephanie Zapata Attending Provider Dr. Fred Tam Referring Provider Dr. Fred Tam Emergency Provider Dr. Kusum Bishop Admit Provider Dr. Kusum Bishop Other Provider Dr. Jaya Almanza Other Provider [place], Dr. España Attending Provider Dr. Jaya Almanza Attending Provider Dr. Lm Maxwell Other Provider Dr. Lm Maxwell Attending Provider Dr. Lm Maxwell Referring Provider Dr. Jose Hooks Chi Referring Provider FAHEEM Abad Attending Provider [phone] Jose Hooks Chi Primary Care Provider [phone] Dr. Lm Maxwell Attending Provider [phone] Lm Maxwell Other Provider Dr. Taco Rose Attending Provider [phone] Dr. Jose Hooks Chi Primary Care Provider Dr. Lm Maxwell Attending Provider [phone] Lm Maxwell Referring Provider [phone] Barbara Mathew Emergency Provider Lopez, Dr. Cheek Admit Provider Unavailabl e Dr. Galilea Lopez Other Provider Unavailabl e Dr. Jay Wright Attending Provider Dr. Jay Wright Other Provider DES BHATT, CORKY Primary Care Physician Dr. Butch Barcenas DO Emergency Provider Negro 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-C, Juan Primary Care Provider [phone] Sweta BHATT, Dr. Joanna Malone Admit Provider Sweta BHATT, Dr. Joanna Malone Attending Provider Sweta BHATT, Dr. Joanna Malone Referring Provider Sweta BHATT, Dr. Joanna Malone Other Provider Dr. Taco Rose DO Attending Provider Negro 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-C, Juan Attending Provider Negro 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-C, Juan Referring Provider Elio 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-C, Jackie Attending Provider Elio 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-C, Jackie Referring Provider Dr. Lm Maxwell MD Attending Provider Jennie BHATT, Dr. Finch Attending Provider [phone] Jennie BHATT, Dr. Finch Referring Provider [phone] Dr. Rl Cadena DO Emergency Provider [phone] Negro 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-C, [place] Primary Care Provider [phone] Negro 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-C, Juan Referring Provider [phone] Negro 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-C, Juan Attending Provider [phone] Rl Cadena DO Attending Provider [phone] Claire BHATT, Dr. Syed Attending Provider Unavaila ble Negro 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-C, [place] Primary Care Provider [phone] Negro 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-C, [place] Referring Provider [phone] Elio 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-C, Jackie Attending Provider Elio 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-C, Jackie Referring Provider Negro 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-C, [place] Primary Care Provider [phone] Negro 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-C, Juan Attending Provider [phone] Negro 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-C, Juan Referring Provider [phone] Karis Ca DO Attending Provider Dr. Karis Ca DO Referring Provider OSCAR TURCIOS DO Attending Unavailable NEGRO LEAD WEB DEVELOPER, GENEVA Primary Care Unavailable KENNEN WEB MANAGER-SYNCHRONOUS MOTOR ASSEMBLER, JUAN L Admitting Cristino HERNANDEZ MD, CORKY Primary Care Unavailable JENNIE BHATT, DR DAY Jules Attending Lasha Zabala MD, DR DAY Jules Attending Unavailab le NEGRO LEAD WEB DEVELOPER, GENEVA Primary Care Unavailable KENNEN WEB MANAGER-SYNCHRONOUS MOTOR ASSEMBLER, JUAN L Consulting Cristino NEWBERRY MD, DR DAY Jules Admitting Lasha Corcoran MD, [facility] Care Unavailable JENNIE BHATT, DR DAY Jules Attending Unavailab le Negro 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-C, [place] Primary Care Provider Negro 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-C, [place] Referring Provider [phone] Haim BHATT, Dr. Oliver Attending Provider Dr. Franck Good DO Emergency Provider Negro 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-C, Juan Primary Care Provider Koram, Joanna Kira Admitting Unavailable Negro, Juan Primary Care Unavailable Koram, Joanna Kira Attending Unavailable Jessee, Jose Chi Primary Care Unavailable Archie, Jaya Attending Unavailable Archie, Jaya Admitting Unavailable Roby, Karis Consulting Unavailable Girdler, Lm Consulting Unavailable Yahaira Shipman Attending Unavailable Negro, Juan Primary Care Unavailable Jessee, Jose Chi Primary Care Unavailable Jessee, Jose Chi Attending Unavailable Jessee, Jose Chi Referring Unavailable Abad, Emely Attending Unavailable Abad, Emely Referring Unavailable Jessee, Jose Chi Primary Care Unavailable Bridges 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, Myrna Consulting Unavailable ElioJackie arango Referring Unavailable Negro, Juan Primary Care Unavailable Jackie Ballard Attending Unavailable Negro, Juan Referring Unavailable Negro, Juan Attending Unavailable Negro, Juan Primary Care Unavailable Jessee, Jose Chi Primary Care Unavailable Jessee, Jose Chi Referring Unavailable Jessee, Jose Chi Attending Unavailable Negro, Juan Primary Care Unavailable Franck Good Attending Unavailable Jessee, Jose Chi Primary Care Unavailable Jessee, Jose Chi Attending Unavailable Negro, Juan Primary Care Unavailable Negro, Juan Referring Unavailable Negro, Juan Attending Unavailable Negro, Juan Primary Care Unavailable Jackie Ballard Referring Unavailable Jackie Ballard Attending Unavailable Jessee, Jose Chi Primary Care Unavailable Cyrus 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, Myrna Attending Unavailable Cyrus 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, Myrna Referring Unavailable Negro, Juan Primary Care Unavailable Roby Karis Attending Unavailable Roby, Karis Referring Unavailable Jessee, Jose Chi Attending Unavailable Jessee, Jose Chi Primary Care Unavailable Jessee, Jose Chi Primary Care Unavailable Jessee, Jose Chi Referring Unavailable Jessee, Jose Chi Attending Unavailable Jessee, Jose Chi Primary Care Unavailable Jessee, Jose Chi Referring Unavailable Jessee, Jose Chi Attending Unavailable Negro, Juan Primary Care Unavailable Abad, Emely Attending Unavailable Jessee, Jose Chi Referring Unavailable Negro, Juan Primary Care Unavailable Jackie Ballard Attending Unavailable Negro, Juan Referring Unavailable Melody Whitmore Attending Unavailable Jessee, Jose Chi Primary Care Unavailable Archie, Jaya Attending Unavailable Archie, Jaya Admitting Unavailable Jessee, Jose Chi Primary Care Unavailable Roby, Karis Consulting Unavailable Hans, Lm Consulting Unavailable Archie, Jaya Consulting Unavailable Koram, Joanna Kira Admitting Unavailable Negro, Juan Primary Care Unavailable Koram, Joanna Kira Consulting Unavailable Koram, Joanna Kira Attending Unavailable [employer] Attending Unavailable Koram, Joanna Kira Referring Unavailable Negro, Juan Primary Care Unavailable Negro, Juan Referring Unavailable Melody Whitmore Attending Unavailable Jessee, Jose Chi Primary Care Unavailable Jessee, Jose Chi Referring Unavailable Katie Oconnell Attending Unavailable [employer] Attending Unavailable Jessee, Jose Chi Primary Care Unavailable Jessee, Jsoe Chi Referring Unavailable Archie, Jaya Referring Unavailable Hans, Lm Attending Unavailable Jessee, Jose Chi Primary Care Unavailable Myrna Bridges NP Attending Unavailable Jessee, Jose Chi Primary Care Unavailable Haim, Melody Attending Unavailable Rina Bob Referring Unavail able [employer] Attending Unavailable Negro, Juan Primary Care Unavailable Koram, Joanna Kira Referring Unavailable Negro, Juan Primary Care Unavailable [employer] Attending Unavailable Koram, Joanna Kira Referring Unavailable Negro, Juan Primary Care Unavailable HansLm Attending Unavailable Negro, Juan Referring Unavailable Jackie Ballard Attending Unavailable Negro, Juan Primary Care Unavailable Negro, Juan Referring Unavailable Jessee, Jose Chi Primary Care Unavailable Khang Klein Attending Unavailable Jessee, Jose Chi Referring Unavailable Jessee, Jose Chi Primary Care Unavailable Eliseo Pittamn Attending Unavailable Jessee, Jose Chi Primary Care Unavailable Jessee, Jose Chi Referring Unavailable Jessee, Jose Chi Attending Unavailable Negro, Juan Primary Care Unavailable Yahaira Shipman Attending Unavailable Negro, Juan Primary Care Unavailable Eshenaur, Ray Attending Unavailable Eshenaur, Ray Referring Unavailable Negro, Juan Primary Care Unavailable Rina Bob Attending Unavail able Rina Bob Referring Unavail able Negro, Juan Primary Care Unavailable Rl Cadena Attending Unavailable Negro, Juan Primary Care Unavailable Negro, Juan Referring Unavailable Negro, Juan Attending Unavailable Rina Bob Referring Unavail able Rina Bob Attending Unavail able Jessee, Jose Chi Primary Care Unavailable Rina Bob Referring Unavail able Rina Bob Attending Unavail able Jessee, Jose Chi Primary Care Unavailable Jessee, Jose Chi Primary Care Unavailable Karis Ca Attending Unavailable Negro, Juan Primary Care Unavailable Day Newberry Attending Unavailable JennieDay mitchell Referring Unavailable Negro, Juan Primary Care Unavailable Negro, Juan Referring Unavailable Negro, Juan Attending Unavailable Jessee, Jose Chi Primary Care Unavailable Jessee, Jose Chi Referring Unavailable Cyrus BERRY, Myrna Attending Unavailable Negro, Juan Primary Care Unavailable Yahaira Shipman Attending Unavailable Emely Abad Attending Unavailable Jessee, Jose Chi Primary Care Unavailable Jessee, Jose Chi Referring Unavailable Jessee, Jose Chi Primary Care Unavailable Jessee, Jose Chi Referring Unavailable Rina Bob Attending Unavail able Jessee, Jose Chi Primary Care Unavailable Jessee, Jose Chi Referring Unavailable Emely Abad Attending Unavailable Jessee, Jose Chi Primary Care Unavailable Archie, Jaya Referring Unavailable Lm Maxwell Attending Unavailable Rina Bob Attending Unavail able Rina Bob Referring Unavail able Jessee, Jose Chi Primary Care Unavailable Allergies Allergy Classification Reported Allergen(s) Allergy Type Date of Onset Reaction(s) Facility (2 sources) amoxicillin / clavulanate Drug Allergy 08-29-19 11 itching [facility] Work Phone: (2 sources) atorvastatin Drug Allergy 08-29-19 11 muscle aches [facility] Work Phone: (4 sources) erythromycin; 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: [Erythromycin] Drug Allergy 08-29-19 11 Hives [facility] Work Phone: (2 sources) fenofibrate; 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: [TRICOR] Drug Allergy 08-29-19 11 myalgia [facility] Work Phone: (2 sources) levoFLOXacin Drug Allergy 08-29-19 11 [facility] Work Phone: (1 source) amLODIPine; 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: [Norvasc *CALCIUM CHANNEL BLOCKERS*] Drug Allergy [facility] Work Phone: (1 source) Amoxicillin / Clavulanate; 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: [Augmentin *PENICILLINS*] Drug Allergy [facility]; [facility] Work Phone: (20 sources) Fenofibrate; 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: [TRICOR, 145MG (Oral Tablet)] Drug Allergy 05-16-20 21 myalgias [facility]; [facility] Work Phone: (1 source) nabumetone; 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: [Nabumetone *ANALGESICS - ANTI-INFLAMMATOR Y*] Drug Allergy Diarrhea, Vomiting [facility]; [facility] Work Phone: (1 source) Erythromycins; 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: [Erythromycins] Allergy to substance (finding) [facility]; [facility] Work Phone: (20 sources) Amoxicillin Drug Allergy 05-16-20 21 Itching [facility] (20 sources) atorvastatin Drug Allergy 05-16-20 21 myalgias [facility] (20 sources) Clavulanate Drug Allergy 05-16-20 21 Itching [facility] (20 sources) Erythromycin Drug Allergy 05-16-20 21 Hives [facility] (20 sources) levoFLOXacin Drug Allergy 05-16-20 21 Unknown [facility] (1 source) Amoxicillin Drug Allergy 11-15-19 25 [facility] (1 source) atorvastatin Drug Allergy 11-15-19 25 [facility] (1 source) Clavulanate Drug Allergy 11-15-19 25 [facility] (1 source) Fenofibrate Drug Allergy 11-15-19 25 [facility] (1 source) levoFLOXacin Drug Allergy 11-15-19 25 [facility] (1 source) erythromycin base Drug allergy (disorder) 11-15-19 25 [facility] Medications Current Medications Medication Drug Class(es) Dates Sig (Normalized) Sig (Original) acetaminophen 500 mg / diphenhydrAMINE hydrochloride 25 mg oral tablet (20 sources) Histamine-1 Receptor Antagonist Start: 07-07-2024 take 1 tablet by mouth once daily at bedtime as needed for pain Tylenol PM Extra Strength oral tablet Dose = 1 tab(s), Oral, qHS, PRN as needed for pain Start Date: 07/07/24 Status: Ordered Repeat number: 1 Start: 09-30-2023 Diphenhydramin e-Acetaminophen (Tylenol Pm Extra Strength) 25- 500 mg tablet Active 2 {tbl} PO AT BEDTIME September 30, 2023 12:00am Start: 10-31-2020 End: 03-12-2021 Diphenhydramine-Acetaminophe n (Tylenol Pm Extra Strength) 25- 500 mg tablet Discontinued 1 {tbl} PO AT BEDTIME as needed for Sleep October 31, 2020 12:00am March 12, 2021 8:00am acetaminophen 325 mg / HYDROcodone bitartrate 5 mg oral tablet (7 sources) Opioid Agonist Start: 11-14-2024 take 1 tablet by mouth every four hours as needed for pain Hydrocodone-Acetaminophen 5-325 mg tablet Active 1 {tbl} PO EVERY 4 HOURS NEEDED as needed for Pain 10 2 November 14, 2024 Start: 08-16-2024 take 1 tablet by zohaib th every six hours as needed for pain Hydrocodone-Acetaminophen 5-325 mg table t Active 1 {tbl} PO EVERY 6 HOURS NEEDED as needed for Pain 10 3 August 16, 2024 apixaban 5 mg oral tablet (20 sources) Factor Xa Inhibitor Start: 11-01-2024 take 1 tablet by mouth twice daily Apixaban (Eliquis) 5 mg tablet Active 5 mg PO TWICE A DAY November 01, 2024 12:00am Start: 07-07-2024 Eliquis 5 mg o ral tablet Dose : 5 mg = 1 tab(s), Oral, BID, 0 Refill(s) Start Date: 07/07/24 Status: Ordered Repeat number: 1 Start: 01-20-2024 End: 11-01-2024 take 1 tablet by mouth twice daily Apixaban (Eliquis) 2.5 mg tablet Discontinued 2.5 mg PO TWICE A DAY February 17, 2024 3:31pm November 01, 2024 9:40am Start: 01-08-2024 End: 01-20-2024 take 1 drop(s) by mouth twice daily Apixaban (Eliquis) 5 mg tablet Discontinued 5 mg PO TWICE A DAY January 08, 2024 12:00am January 20, 2024 8:44am On Hold: blood in stool/tarry stool Discontinue if platelet count drops less than 50,000 or hemoglobin less than 8 g% Start: 05-29-2023 End: 06-25-2023 take 1 tablet by mouth twice daily Apixaban (Eliquis) 5 mg Tablet Discontinued 5 mg PO TWICE A DAY May 29, 2023 1:00am June 25, 2023 12:09pm On Hold: Hold for 5 more days from 05/31/2023 Start: 05-23-2023 End: 05-29-2023 take 2 tablets by mouth twice daily Apixaban (Eliquis) 5 mg Tablet Discontinued 10 mg PO TWICE A DAY 60 May 23, 2023 1:00am May 29, 2023 5:01pm aspirin 81 mg delayed release oral tablet (20 sources) Nonsteroidal Anti-inflammatory Drug Start: 11-01-2024 take 1 tablet by mouth once daily Aspirin (Adult Aspirin Regimen) 81 mg tablet,delayed release (DR/EC) Active 81 mg PO daily November 01, 2024 12:00am Start: 09-30-2023 End: 04-25-2024 take 1 tablet by mouth once daily Aspirin (Adult Aspirin Regimen) 81 mg tablet,delayed release (DR/EC) Discontinued 81 mg PO DAILY September 30, 2023 12:00am April 25, 2024 10:33am On Hold: Hold for 2 to 3 weeks and check with PCP before resumption. Patient on Eliquis and history of GI bleed Start: 02-22-2021 End: 05-30-2023 take 1 tablet by mouth once daily Aspirin 81 mg Tablet,Chewable Discontinued 81 mg PO DAILY February 22, 2021 12:00am May 30, 2023 3:19pm Start: 11-09-2020 End: 01-31-2021 Aspirin (Adult Low Dose Aspi rin) 81 mg tablet,delayed release (DR/EC) Discontinued 81 mg PO DAILY November 09, 2020 12:00am January 31, 2021 9:54am Start: 11-05-2015 End: 05-05-2016 take 1 tablet by mouth once daily ASPIRIN 325 MG TABS One tablet by mouth daily ASPIRIN [id number] 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 Start: 10-03-2015 End: 10-03-2015 Start: 10-03-2015 Start: 03-24-2007 End: 01-25-2008 Blood Pressure Monitor (20 sources) Start: 01-15-2023 Blood Pressure Monitor Active 0 .Route January 14, 2023 11:00pm As directed Start: 01-15-2023 Blood Pressure Monitor Active 0 .Route 1 January 15, 2023 12:00am As directed Blood Pressure Monitor kit (6 sources) Start: 01-15-2023 Blood Pressure Monitor kit Active 0 .Route January 15, 2023 12:00am As directed calcium ascorbate 500 mg oral tablet (6 sources) Start: 05-18-2024 take 1 tablet by mouth once daily Ascorbate Calcium (Vitamin C) 500 mg tablet Active 500 mg PO daily May 18, 2024 1:00am cephalexin 500 mg oral capsule (1 source) Cephalosporin Antibacterial Start: 09-30-2023 take 500 mg by mouth twice daily Cephalexin Active 500 MG PO TWICE A DAY September 30, 2023 12:00am cholecalciferol 0.05 mg oral capsule (20 sources) Vitamin D Start: 04-25-2024 take 1 capsule by mouth once daily Cholecalciferol (Vitamin D3) 50 mcg (2,000 unit) capsule Active 50 ug PO DAILY April 25, 2024 1:00am Start: 12-25-2021 End: 04-25-2024 take 1 capsule by mouth once daily Cholecalciferol (Vitamin D3) 25 mcg (1,000 unit) capsule Discontinued 25 ug PO DAILY December 25, 2021 12:00am April 25, 2024 10:33am Start: 07-21-2018 End: 03-12-2021 take 1 tablet by mouth once daily Cholecalciferol (Vitamin D3) 5,000 unit tablet Discontinued 5000 U PO DAILY July 21, 2018 1:00am March 12, 2021 8:01am Start: 05-05-2016 End: 11-03-2016 take 1 tablet by mouth once daily VITAMIN D3 2000 UNIT TABS One tablet by mouth daily CHOLECALCIFEROL [id number] Geovanny Michelle MD Start: 01-16-2012 End: 03-20-2015 take 2 tablets by mouth once daily VITAMIN D 2000 UNIT TABS Two tablets by mouth daily CHOLECALCIFEROL [id number] Rina Olivier PA-C Start: 01-15-2011 colesevelam hydrochloride 625 mg oral tablet (7 sources) Bile Acid Sequestrant Start: 11-04-2024 take 3 tablets by mouth twice daily Colesevelam (Welchol) 625 mg tablet Active 1875 mg PO TWICE A DAY November 04, 2024 12:00am Start: 02-22-2013 End: 02-22-2013 Start: 10-22-2012 End: 10-22-2012 Start: 01-16-2012 End: 07-26-2012 take 6 tablets by mouth once daily WELCHOL 625 MG TABS Six tablets by mouth daily COLESEVELAM HCL [id number] Geovanny Michelle MD doxycycline hyclate 100 mg oral tablet (7 sources) Tetracycline-class Drug Start: 04-25-2024 take 1 tablet by mouth twice daily Doxycycline Hyclate 100 mg tablet Active 100 mg PO TWICE A DAY April 25, 2024 1:00am Start: 09-27-2014 End: 10-31-2014 escitalopram 20 mg oral tablet (2 sources) Serotonin Reuptake Inhibitor Start: 11-01-2024 take 1 tablet by mouth at bedtime Escitalopram Oxalate 20 mg tablet Active 20 mg PO AT BEDTIME November 01, 2024 12:00am ferrous sulfate 324 mg delayed release oral tablet (14 sources) Start: 07-07-2024 take 1 dose by mouth once daily ferrous sulfate Dose : 324 mg =, Oral, qDay, 0 Refill(s) Start Date: 07/07/24 Status: Ordered Repeat number: 1 Start: 05-18-2024 take 1 tablet by zohaib th once daily Ferrous Sulfate 325 mg (65 mg iron) tablet Active 325 mg PO daily May 18, 2024 1:00am Start: 01-08-2024 End: 02-18-2024 take 1 tablet by mouth every other day Ferrous Sulfate 324 mg (65 mg iron) tablet,delayed release (DR/EC) Discontinued 324 mg PO EVERY OTHER DAY January 08, 2024 12:00am February 18, 2024 10:48am Lopressor 25mg--USE metoprolol tartrate 25 mg oral tablet (2 sources) Start: 07-07-2024 Lopressor 25mg--USE metoprolol tartrate 25 mg oral tablet Dose : 50 mg = 2 tab(s), Oral, qDay, 0 Refill(s) Start Date: 07/07/24 Status: Ordered Repeat number: 1 24 hr metoprolol succinate 25 mg extended release oral tablet (20 sources) beta-Adrenergic Yadira Start: 11-01-2024 take 1 tablet by mouth once daily Metoprolol Succinate 25 mg tablet extended release 24 hr Active 25 mg PO daily 90 November 01, 2024 12:00am Start: 03-21-2024 End: 11-01-2024 take 1 tablet by mouth twice daily Metoprolol Tartrate 25 mg tablet Discontinued 25 mg PO TWICE A DAY 60 March 21, 2024 3:57pm November 01, 2024 3:50pm Start: 02-24-2023 End: 03-21-2024 take 1 tablet by mouth twice daily Metoprolol Tartrate 50 mg tablet Discontinued 50 mg PO TWICE A DAY 60 February 25, 2024 8:33am March 21, 2024 3:58pm Start: 10-10-2021 End: 02-24-2023 take 1 tablet by mouth twice daily Metoprolol Tartrate 25 mg tablet Discontinued 25 mg PO TWICE A DAY 180 August 28, 2022 8:49am February 24, 2023 4:49pm Start: 09-18-2021 End: 10-10-2021 take 1 tablet by mouth twice daily Metoprolol Tartrate 50 mg tablet Discontinued 50 mg PO TWICE A DAY 60 September 18, 2021 9:34am October 10, 2021 10:50am Start: 05-10-2021 End: 09-18-2021 Metoprolol Tartrate 50 mg ta blet Discontinued 75 mg PO TWICE A DAY 270 July 08, 2021 4:44pm September 18, 2021 9:36am Start: 05-10-2021 End: 09-18-2021 take 75 mg by mouth twice daily Metoprolol Tartrate Di scontinued 75 MG PO TWICE A DAY 270 July 08, 2021 3:44pm September 18, 2021 8:36am Start: 03-12-2021 End: 05-10-2021 take 1 tablet by mouth every eight hours Metoprolol Tartrate 50 mg Tablet Discontinued 50 mg PO EVERY 8 HOURS 90 March 12, 2021 12:00am May 10, 2021 3:57pm Start: 10-01-2017 End: 10-07-2017 take 1 tablet by mouth once daily Metoprolol Succinate 50 mg tablet extended release 24 hr Discontinued 50 mg PO daily October 01, 2017 12:00am October 07, 2017 11:49am Start: 02-21-2016 End: 03-12-2021 take 1 tablet by mouth twice daily Metoprolol Succinate 25 mg tablet extended release 24 hr Discontinued 25 mg PO TWICE A DAY January 31, 2021 12:00am March 12, 2021 8:01am Start: 11-05-2015 take 1 tablet by zohaib th once daily METOPROLOL SUCCINATE ER 25 MG [id number] One tablet by mouth daily METOPROLOL SUCCINATE [id number] Geovanny Michelle MD Start: 11-05-2015 take 1 tablet by zohaib th once daily METOPROLOL SUCCINATE ER 50 MG [id number] One tablet by mouth daily METOPROLOL SUCCINATE [id number] 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 naproxen 500 mg oral tablet (2 sources) Nonsteroidal Anti-inflammatory Drug Start: 11-01-2024 take 1 tablet by mouth twice daily Naproxen 500 mg tablet Active 500 mg PO TWICE A DAY November 01, 2024 12:00am pantoprazole 40 mg delayed release oral tablet (20 sources) Proton Pump Inhibitor Start: 05-18-2024 take 1 tablet by mouth once daily Pantoprazole 40 mg tablet,delayed release (DR/EC) Active 40 mg PO daily May 18, 2024 11:38am Start: 05-30-2023 End: 05-18-2024 take 1 tablet by mouth twice daily Pantoprazole 40 mg Tablet,Delayed Release (Dr/Ec) Discontinued 40 mg PO TWICE A DAY January 08, 2024 12:00am May 18, 2024 11:38am Start: 03-12-2021 End: 05-30-2023 take 1 tablet by mouth once daily Pantoprazole 40 mg Tablet,Delayed Release (Dr/Ec) Discontinued 40 mg PO DAILY March 12, 2021 12:00am May 30, 2023 3:19pm Start: 04-25-2008 End: 03-13-2010 levothyroxine sodium 0.088 mg oral tablet (20 sources) l-Thyroxine Start: 07-07-2024 levothyroxine 88 mcg (0.088 mg) oral tablet Dose : 88 mcg = 1 tab(s), Oral, qDayAC, 0 Refill(s) Start Date: 07/07/24 Status: Ordered Repeat number: 1 Start: 05-29-2023 take 1 tablet by zohaib th once daily Levothyroxine 88 mcg tablet Active 88 ug PO DAILY May 29, 2023 1:00am Start: 06-26-2022 End: 05-29-2023 Levothyroxine 75 mcg tablet Discontinued 88 ug PO DAILY@0600 June 26, 2022 10:45am May 29, 2023 4:55pm Start: 06-26-2022 End: 05-29-2023 take 88 ug by mouth once daily Levothyroxine Discontin ued 88 MCG PO DAILY@0600 June 26, 2022 10:45am May 29, 2023 4:55pm Start: 09-22-2019 End: 03-12-2021 Levothyroxine 88 mcg tablet Discontinued 75 ug PO DAILY September 22, 2019 12:00am March 12, 2021 8:00am Start: 09-22-2019 End: 03-12-2021 take 75 ug by mouth once daily Levothyroxine Discontin ued 75 MCG PO DAILY September 22, 2019 12:00am March 12, 2021 8:00am Start: 06-13-2016 End: 09-22-2019 take 1 tablet by mouth once daily Levothyroxine 100 MCG tablet Discontinued 100 ug PO DAILY April 15, 2017 1:00am September 22, 2019 2:07pm Start: 04-17-2015 End: 06-26-2022 take 1 tablet by mouth once daily Levothyroxine 75 mcg Tablet Discontinued 75 ug PO DAILY@0600 March 12, 2021 12:00am June 26, 2022 10:45am Start: 01-16-2012 End: 05-05-2016 take 1 tablet by mouth once daily LEVOTHROID 75 MCG TABS One tablet by mouth daily LEVOTHYROXINE SODIUM [id number] 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 Start: 01-16-2012 take 1 tablet by zohaib th once daily LEVOTHROID 75 MCG TABS One tablet by mouth daily LEVOTHYROXINE SODIUM [id number] Geovnany Michelle MD traMADol hydrochloride 50 mg oral tablet (2 sources) Opioid Agonist Start: 11-01-2024 Tramadol 50 mg tablet Active 25 mg PO EVERY 6 HOURS as needed for pain November 01, 2024 12:00am Vitamin C 500 mg oral tablet, chewable (2 sources) Start: 07-07-2024 Vitamin C 500 mg oral tablet, chewable Dose : 1,000 mg = 2 tab(s), Chewed, Daily, # 30 tab(s), 0 Refill(s) Start Date: 07/07/24 Status: Ordered Quantity: 30.0 Unit: tab(s) Repeat number: 1 Completed/Discontinued Medications Medication Drug Class(es) Dates Sig (Normalized) Sig (Original) acetaminophen 500 mg oral tablet (17 sources) Start: 10-03-2023 End: 10-14-2023 take 2 tablets by mouth every eight hours as needed for pain Acetaminophen (Tylenol Extra Strength) 500 mg tablet Discontinued 1000 mg PO EVERY 8 HOURS NEEDED as needed for fever or pain 0 October 03, 2023 9:27am October 14, 2023 8:27am Start: 09-30-2023 End: 10-03-2023 take 2 tablets by mouth every six hours as needed for pain Acetaminophen (Tylenol Extra Strength) 500 mg tablet Discontinued 1000 mg PO EVERY 6 HOURS as needed for fever or pain September 30, 2023 12:00am October 03, 2023 9:27am acetaminophen 325 mg / oxyCODONE hydrochloride 5 mg oral tablet (20 sources) Opioid Agonist Start: 06-04-2017 End: 10-07-2017 Oxycodone-Acetaminophen 1 TABLET tablet Discontinued 1 - 2 {tbl} PO EVERY 4 HOURS NEEDED as needed for Pain June 04, 2017 1:00am October 07, 2017 11:49am Start: 06-04-2017 End: 10-07-2017 take 1 tablet by mouth every four hours as needed Oxycodone-Acetaminophen Discontinued 1 - 2 TABLET PO EVERY 4 HOURS NEEDED June 04, 2017 1:00am October 07, 2017 11:49am amLODIPine 2.5 mg oral tablet (20 sources) Dihydropyridine Calcium Channel Yadira Start: 04-25-2024 End: 11-01-2024 take 1 tablet by mouth once daily Amlodipine 2.5 mg tablet Discontinued 2.5 mg PO DAILY April 25, 2024 1:00am November 01, 2024 9:40am Start: 01-05-2023 End: 01-08-2024 take 1 tablet by mouth once daily Amlodipine 2.5 mg Tablet Discontinued 2.5 mg PO DAILY 60 January 05, 2023 12:00am January 08, 2024 11:29am Start: 08-14-2016 End: 01-31-2021 take 1 tablet by mouth once daily Amlodipine 10 MG tablet Discontinued 10 mg PO DAILY April 15, 2017 1:00am January 31, 2021 9:54am Start: 08-14-2016 take 1 tablet by zohaib th once daily AMLODIPINE BESYLATE 5 MG TABS One tablet by mouth daily AMLODIPINE BESYLATE [id number] Rina Olivier PA-C amoxicillin 500 mg oral capsule (1 source) Penicillin-class Antibacterial Start: 02-22-2013 End: 02-22-2013 ascorbic acid 500 mg oral tablet (6 sources) Vitamin C Start: 01-08-2024 End: 02-18-2024 take 1 tablet by mouth twice daily Ascorbic Acid (Vitamin C) 500 mg tablet Discontinued 500 mg PO TWICE A DAY 60 January 08, 2024 12:00am February 18, 2024 10:47am benzonatate 100 mg oral capsule (1 source) Non-narcotic Antitussive Start: 05-20-2007 End: 01-25-2008 ciprofloxacin 500 mg oral tablet (1 source) Quinolone Antimicrobial Start: 10-25-2013 End: 11-04-2013 clonazePAM 0.5 mg oral tablet (16 sources) Benzodiazepine Start: 05-23-2023 End: 06-25-2023 take 1 tablet by mouth every eight hours as needed Clonazepam 0.5 mg Tablet Discontinued 0.5 mg PO Q8H as needed for myoclonic jerks May 23, 2023 12:08pm June 25, 2023 12:10pm cloNIDine hydrochloride 0.1 mg oral tablet (1 source) Central alpha-2 Adrenergic Agonist Start: 09-19-2011 End: 10-28-2011 clopidogrel 75 mg oral tablet (20 sources) P2Y12 Platelet Inhibitor Start: 01-05-2023 End: 01-08-2024 take 1 tablet by mouth once daily Clopidogrel 75 mg Tablet Discontinued 75 mg PO DAILY January 05, 2023 12:00am January 08, 2024 11:31am clotrimazole 10 mg oral lozenge (1 source) Azole Antifungal Start: 05-20-2007 End: 07-19-2007 docusate sodium 50 mg / sennosides, alf 8.6 mg oral tablet (6 sources) Start: 01-08-2024 End: 01-20-2024 Sennosides-Docusa te Sodium (Stimulant Laxative Plus) 8.6-50 mg Tablet Discontinued 2 {tbl} PO TWICE A DAY 0 January 08, 2024 12:00am January 20, 2024 8:42am DULoxetine 20 mg delayed release oral capsule (11 sources) Serotonin and Norepinephrine Reuptake Inhibitor Start: 01-16-2012 End: 03-20-2015 take 2 tablets by mouth once daily CYMBALTA 20 MG CPEP Two tablets by mouth daily DULOXETINE HCL [id number] Rina Olivier PA-C Start: 08-28-2010 End: 08-08-2016 1 ml evolocumab 140 mg/ml auto-injector (20 sources) PCSK9 Inhibitor Start: 11-18-2022 End: 09-30-2023 Evolocumab (Repatha Sureclick) 140 mg/mL pen injector Discontinued 140 mg SC every 2 weeks 2 January 15, 2023 3:20pm September 30, 2023 9:56am ezetimibe 10 mg oral tablet (20 sources) Dietary Cholesterol Absorption Inhibitor Start: 01-15-2023 End: 09-30-2023 take 1 tablet by mouth once daily Ezetimibe (Zetia) 10 mg tablet Discontinued 10 mg PO DAILY August 19, 2023 10:12am September 30, 2023 9:56am Start: 12-16-2006 End: 12-16-2006 ezetimibe 10 mg / simvastati n 20 mg oral tablet (3 sources) HMG-CoA Reductase Inhibitor, Dietary Cholesterol Absorption Inhibitor Start: 11-09-2007 End: 01-25-2008 Start: 08-09-2007 End: 08-24-2007 Start: 12-16-2006 End: 08-09-2007 famotidine 40 mg oral tablet (20 sources) Histamine-2 Receptor Antagonist Start: 01-31-2021 End: 03-12-2021 take 1 tablet by mouth once daily Famotidine 40 mg tablet Discontinued 40 mg PO DAILY January 31, 2021 12:00am March 12, 2021 8:00am fenofibrate 145 mg oral tablet (1 source) Peroxisome Proliferator Receptor alpha Agonist Start: 08-22-2009 End: 08-22-2009 fluconazole 150 mg oral tablet (1 source) Azole Antifungal Start: 10-05-2014 End: 10-11-2014 furosemide 40 mg oral tablet (20 sources) Loop Diuretic Start: 12-31-2023 End: 05-18-2024 take 1 tablet by mouth once daily Furosemide (Lasix) 40 mg tablet Discontinued 40 mg PO DAILY December 31, 2023 12:00am May 18, 2024 11:07am Start: 03-18-2022 End: 05-23-2023 take 1 tablet by mouth once daily as needed for edema Furosemide (Lasix) 20 mg tablet Discontinued 20 mg PO DAILY as needed for edema, sob, weight gain 60 November 18, 2022 5:20pm May 23, 2023 12:06pm On Hold: Order Changed hydroCHLOROthiazide 12.5 mg oral capsule (11 sources) Thiazide Diuretic Start: 10-08-2016 Start: 08-28-2010 End: 11-10-2016 take 1 tablet by mouth once daily HYDROCHLOROTHIAZIDE 12.5 MG TABS One tablet by mouth daily HYDROCHLOROTHIAZIDE [id number] 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 levoFLOXacin 500 mg oral tablet (1 source) Quinolone Antimicrobial Start: 07-05-2008 End: 08-14-2008 lidocaine 0.05 mg/mg medicated patch (20 sources) Antiarrhythmic, Amide Local Anesthetic Start: 03-12-2021 End: 05-16-2021 Lidocaine 5 % Adhesive Patch,Medicated Discontinued 1 NMA TOPICAL DAILY March 12, 2021 12:00am May 16, 2021 12:12pm Please contact the information source for Protocol details. lisinopril 10 mg oral tablet (20 sources) Angiotensin Converting Enzyme Inhibitor Start: 05-10-2021 End: 05-10-2021 take 2.5 mg by mouth once daily Lisinopril 5 mg tablet Discontinued 2.5 mg PO DAILY May 10, 2021 3:52pm May 10, 2021 3:58pm Start: 05-10-2021 End: 05-10-2021 take 2.5 mg by mouth once daily Lisinopril Discontinue d 2.5 MG PO DAILY May 10, 2021 3:52pm May 10, 2021 3:58pm Start: 05-10-2021 End: 12-25-2021 take 1 tablet by mouth once daily Lisinopril 10 mg tablet Discontinued 10 mg PO DAILY July 08, 2021 4:44pm December 25, 2021 9:53am On Hold: low bp Start: 03-12-2021 End: 05-10-2021 take 1 tablet by mouth once daily Lisinopril 5 mg Tablet Discontinued 5 mg PO DAILY March 12, 2021 12:00am May 10, 2021 3:57pm Start: 08-28-2010 End: 01-31-2021 take 1 tablet by mouth once daily Lisinopril 20 MG tablet Discontinued 20 mg PO DAILY April 15, 2017 1:00am January 31, 2021 9:54am Start: 08-28-2010 take 0.5 tablet by m outh once daily LISINOPRIL 40 MG TABS 1/2 tablet by mouth daily LISINOPRIL [id number] Geovanny Michelle MD Start: 08-28-2010 take 1 tablet by zohaib th once daily LISINOPRIL 40 MG TABS One tablet by mouth daily LISINOPRIL [id number] PHIL HolcombC loratadine 10 mg oral capsule (1 source) Start: 10-31-2014 End: 01-24-2015 lovastatin 10 mg oral tablet (5 sources) HMG-CoA Reductase Inhibitor Start: 10-03-2015 End: 05-05-2016 take 1 tablet by mouth at bedtime LOVASTATIN 10 MG TABS One tablet by mouth at bedtime. LOVASTATIN [id number] 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 magnesium chloride 535 mg delayed release oral tablet (20 sources) Start: 03-12-2021 End: 05-10-2021 Magnesium Chloride (Mag 64) 64 mg Tablet,Delayed Release (Dr/Ec) Discontinued 128 mg PO DAILY 60 March 12, 2021 12:00am May 10, 2021 3:53pm magnesium oxide 400 mg oral tablet (20 sources) Start: 05-10-2021 End: 05-16-2021 take 1 tablet by mouth once daily Magnesium Oxide 400 mg (241.3 mg magnesium) tablet Discontinued 400 mg PO DAILY May 10, 2021 1:00am May 16, 2021 12:12pm melatonin 3 mg oral tablet (20 sources) Start: 03-12-2021 End: 05-16-2021 take 1 tablet by mouth at bedtime as needed for sleep Melatonin 3 mg Tablet Discontinued 3 mg PO AT BEDTIME as needed for SLEEP 0 March 12, 2021 12:00am May 16, 2021 12:12pm mirtazapine 7.5 mg oral tablet (15 sources) Start: 05-29-2023 End: 06-25-2023 take 1 tablet by mouth at bedtime Mirtazapine 7.5 mg tablet Discontinued 7.5 mg PO AT BEDTIME May 29, 2023 1:00am June 25, 2023 12:10pm [facility] [place] NATURAL PRODUCTS (4 sources) Start: 11-05-2015 End: 05-05-2016 take 1 tablet by mouth once daily TART XIONG ADVANCED CAPS One tablet by mouth daily [facility] [place] [employer] [id number] 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 Start: 11-05-2015 take 1 tablet by zohaib th once daily TART XIONG ADVANCED CAPS One tablet by mouth daily [facility] [place] [facility] [id number] Geovanny Michelle MD mometasone furoate 0.05 mg/actuat metered dose nasal spray (1 source) Corticosteroid Start: 10-05-2014 End: 01-24-2015 24 hr NIFEdipine 90 mg extended release oral tablet (7 sources) Dihydropyridine Calcium Channel Yadira Start: 10-24-2015 End: 10-24-2015 Start: 01-16-2012 End: 11-05-2015 take 1 tablet by mouth once daily NIFEDIPINE ER 90 MG [id number] One tablet by mouth daily NIFEDIPINE [id number] Geovanny Michelle MD Start: 08-28-2010 take 1 tablet by zohaib th once daily NIFEDIPINE ER 60 MG [id number] One tablet by mouth daily NIFEDIPINE [id number] Rosetta Brothers RN nystatin 120115 unt/ml oral suspension (1 source) Polyene Antifungal Start: 10-05-2014 End: 10-15-2014 omeprazole 20 mg delayed release oral capsule (20 sources) Proton Pump Inhibitor Start: 04-15-2017 End: 01-31-2021 take 10 mg by mouth once daily Omeprazole 20 MG capsule Discontinued 10 mg PO DAILY April 15, 2017 1:00am January 31, 2021 9:53am Start: 04-15-2017 End: 01-31-2021 take 10 mg by mouth once daily Omeprazole Discontinued 10 MG PO DAILY April 15, 2017 1:00am January 31, 2021 9:53am Start: 07-26-2012 take 1 tablet by zohaib th every other day OMEPRAZOLE 20 MG CPDR One tablet by mouth every other day OMEPRAZOLE [id number] Geovanny Michelle MD Start: 01-16-2012 take 1 tablet by zohaib th once daily OMEPRAZOLE 20 MG CPDR One tablet by mouth daily OMEPRAZOLE [id number] Rina Berrios RN End: 06-27-2014 pitavastatin calcium 2 mg oral tablet (1 source) HMG-CoA Reductase Inhibitor Start: 01-15-2011 End: 01-15-2011 potassium chloride 10 meq extended release oral tablet (20 sources) Start: 05-05-2016 End: 11-10-2016 take 2 tablets by mouth once daily POTASSIUM CHLORIDE ER 10 MEQ CR-TABS Two tablets by mouth daily (STOP) POTASSIUM CHLORIDE [id number] Janet Schumacher RN Start: 02-22-2013 End: 06-30-2013 Start: 01-25-2013 End: 05-03-2014 take 1 tablet by mouth once daily KLOR-CON 10 CR-TABS One tablet by mouth daily POTASSIUM CHLORIDE CR-TABS [id number] Rina Olivier PA-C Start: 01-25-2013 take 1 tablet by zohaib th once daily KLOR-CON 10 CR-TABS One tablet by mouth daily POTASSIUM CHLORIDE CR-TABS [id number] Rina Olivier PA-C Start: 01-16-2012 End: 07-26-2012 take 3 tablets by mouth once daily POTASSIUM CHLORIDE ER 10 MEQ CR-TABS Three tablets by mouth daily POTASSIUM CHLORIDE [id number] Geovanny Michelle MD Start: 08-28-2010 take 1 tablet by zohaib th once daily POTASSIUM CHLORIDE ER 10 MEQ CR-TABS One tablet by mouth daily POTASSIUM CHLORIDE [id number] 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 Start: 02-15-2010 End: 05-06-2010 Start: 01-25-2008 End: 01-25-2008 Start: 02-17-2007 End: 02-17-2007 pravastatin sodium 20 mg oral tablet (1 source) HMG-CoA Reductase Inhibitor Start: 11-28-2009 End: 03-13-2010 predniSONE 5 mg oral tablet (20 sources) Start: 09-30-2023 End: 12-30-2023 take 1 tablet by mouth once daily Prednisone 5 mg tablet Discontinued 5 mg PO DAILY September 30, 2023 12:00am December 30, 2023 8:55am Start: 09-18-2021 End: 12-25-2021 take 1 tablet by mouth twice daily Prednisone 10 mg tablet Discontinued 10 mg PO TWICE A DAY September 18, 2021 12:00am December 25, 2021 9:53am Start: 10-31-2020 End: 03-12-2021 take 3 tablets by mouth once daily Prednisone 20 mg tablet Discontinued 60 mg PO DAILY October 31, 2020 12:00am March 12, 2021 8:01am Start: 10-31-2020 End: 03-12-2021 take 60 mg by mouth once daily Prednisone Discontinued 60 MG PO DAILY October 31, 2020 12:00am March 12, 2021 8:01am Start: 11-07-2015 End: 11-21-2015 Start: 08-13-2015 End: 10-08-2015 Start: 02-24-2014 End: 06-27-2014 pregabalin 50 mg oral capsule (1 source) Start: 11-09-2007 End: 01-25-2008 rosuvastatin calcium 20 mg oral tablet (20 sources) HMG-CoA Reductase Inhibitor Start: 03-12-2021 End: 12-25-2021 take 1 tablet by mouth at bedtime Rosuvastatin (Crestor) 20 mg Tablet Discontinued 20 mg PO AT BEDTIME March 12, 2021 12:00am December 25, 2021 9:53am On Hold: muscle aches Start: 05-30-2008 End: 08-14-2008 selenium sulfide 25 mg/ml medicated shampoo (1 source) Start: 09-21-2006 End: 08-14-2008 sildenafil 50 mg oral tablet (1 source) Phosphodiesterase 5 Inhibitor Start: 06-27-2015 simvastatin 40 mg oral tablet (1 source) HMG-CoA Reductase Inhibitor Start: 01-25-2008 End: 01-25-2008 spironolactone 25 mg oral tablet (20 sources) Aldosterone Antagonist Start: 03-12-2021 End: 09-18-2021 take 1 tablet by mouth once daily Spironolactone 25 mg Tablet Discontinued 25 mg PO DAILY March 12, 2021 12:00am September 18, 2021 9:34am Start: 11-03-2016 End: 01-31-2021 take 1 tablet by mouth once daily Spironolactone 25 mg tablet Discontinued 0 .ROUTE .COMPLEX December 27, 2020 4:47pm January 31, 2021 9:53am TAKE 1 TABLET BY MOUTH EVERY DAY Start: 11-03-2016 take 1 tablet by zohaib th twice daily ALDACTONE 25 MG TABS One tablet by mouth twice daily SPIRONOLACTONE [id number] Geovanny Michelle MD Start: 10-08-2015 End: 10-08-2015 sucralfate 1000 mg oral tablet (4 sources) Aluminum Complex Start: 06-13-2016 End: 11-03-2016 SUCRALFATE 1 GM TABS One tablet 4 times daily before meals and at bedtime SUCRALFATE [id number] Geovanny Michelle MD sulfamethoxazole 400 mg / trimethoprim 80 mg oral tablet (14 sources) Dihydrofolate Reductase Inhibitor Antibacterial, Sulfonamide Antimicrobial Start: 10-21-2023 End: 12-30-2023 Sulfamethoxazole-Tri methoprim (Bactrim) 400-80 mg tablet Discontinued 1 {tbl} PO TWICE A DAY October 21, 2023 12:00am December 30, 2023 8:56am Start: 10-03-2023 End: 10-14-2023 Sulfamethoxazole-Trimethopri m (Bactrim Ds) 800-160 mg tablet Discontinued 1 {tbl} PO TWICE A DAY 12 02October 03, 2023 12:00am October 14, 2023 8:29am tamsulosin hydrochloride 0.4 mg oral capsule (1 source) alpha-Adrenergic Yadira Start: 09-27-2014 End: 06-13-2015 Triamcinolone (1 source) Corticosteroid Start: 08-09-2007 End: 08-14-2008 Problems Active Problems Problem Classification Problem Date Documented Date Episodic/Chronic Abdominal pain (20 sources) Abdominal pain; 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: [Unspecified abdominal pain] 06-04-2017 Episodic Acute cerebrovascular disease (9 sources) Lacunar infarction; 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] 12-05-2015 Chronic Acute posthemorrhagic anemia (19 sources) Acute posthemorrhagic anemia; 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: [Acute posthemorrhagic anemia] 05-29-2023 Episodic Administrative/social admission (1 source) Encounter for examination for admission to residential institution; 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: [Encounter for examination for admission to residential institution] Onset: 09-08-2024 Episodic Allergic reactions (2 sources) Contact dermatitis due to poison christos; 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: [Poison christos] 12-05-2015 Episodic Biliary tract disease (1 source) Gallstone; 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: [Calculus of gallbladder w/o mention of cholecystitis or obstruction] 12-05-2015 Episodic Cardiac dysrhythmias (20 sources) Ventricular premature depolarization; 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: [Premature atrial contraction] Onset: 08-28-2010 08-28-2010 Chronic Chronic kidney disease (20 sources) Chronic kidney disease; 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: [Chronic kidney disease, unspecified] 11-04-2022 Chronic Chronic kidney disease (3 sources) Chronic kidney disease; 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: [Chronic kidney disease, stage 3a] Onset: 01-08-2024 Coma; stupor; and brain damage (20 sources) Daytime somnolence; 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: [Somnolence] 10-30-2022 Episodic Complications of surgical procedures or medical care (20 sources) Adverse reaction to drug; 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: [Adverse reaction to drug, sequela] 12-05-2015 Episodic Conduction disorders (2 sources) Conduction disorder of the heart; 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: [Other specified cardiac arrhythmias] Onset: 08-28-2010 08-28-2010 Chronic Coronary atherosclerosis and other heart disease (20 sources) Coronary atherosclerosis; 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: [Atherosclerotic heart disease of [place] coronary artery without angina pectoris] Chronic Deficiency and other anemia (20 sources) Anemia; 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: [Anemia, unspecified] 03-22-2021 Episodic Disorders of lipid metabolism (20 sources) Hyperlipidemia; 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: [Hypercholesterolemia] Onset: 05-03-2014 05-03-2014 Chronic E Codes: Adverse effects of medical drugs (2 sources) Adverse effect of unspecified drugs, medicaments and biological substances, initial encounter; 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: [Unspecified drug or medicinal substance causing adverse effects in therapeutic use] 10-03-2023 Episodic Esophageal disorders (20 sources) Gastroesophageal reflux disease without esophagitis; 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: [Gastroesophageal reflux disease without esophagitis] 12-05-2015 Chronic Essential hypertension (20 sources) Hypertensive disorder; 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: [Essential hypertension] Onset: 05-03-2014 Resolved: 10-24-2015 05-03-2014 Chronic Fluid and electrolyte disorders (8 sources) Hypokalemia; 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: [Hypokalemia] Onset: 11-28-2009 12-05-2015 Episodic Gastritis and duodenitis (1 source) Acute gastritis; 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: [Gastritis, acute] 12-05-2015 Episodic Genitourinary symptoms and ill-defined conditions (16 sources) Blood in urine; 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: [Hematuria] Resolved: 08-22-2009 05-22-2009 Episodic Hyperplasia of prostate (1 source) Hyperplasia of prostate; 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: [Benign prostatic hyperplasia with urinary obstruction and other lower urinary tract symptoms] 12-05-2015 Chronic Immunizations and screening for infectious disease (20 sources) Needs influenza immunization; 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: [Need for prophylactic vaccination and inoculation against influenza] 12-05-2015 Episodic Malaise and fatigue (20 sources) Fatigue; 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: [Asthenia] Onset: 08-28-2010 08-28-2010 Episodic Nutritional deficiencies (20 sources) Vitamin D deficiency; 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: [Vitamin D deficiency, unspecified] 12-05-2015 Chronic Occlusion or stenosis of precerebral arteries (1 source) Arteriosclerosis of carotid artery; 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: [Arteriosclerosis of both carotid arteries] 12-05-2015 Chronic Other aftercare (20 sources) Patient encounter status; 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: [Therapeutic drug monitoring] 12-05-2015 Episodic Other aftercare (14 sources) Drug therapy finding; 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: [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] 05-29-2023 Episodic Other aftercare (5 sources) detention (current) use of anticoagulants; 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: [Long-term (current) use of anticoagulants] 05-30-2023 Episodic Other aftercare (6 sources) Long-term current use of diuretic; 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: [Encounter for therapeutic drug level monitoring] 10-30-2022 Episodic Other circulatory disease (13 sources) History of insertion of inferior vena caval filter; 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: [Presence of other vascular implants and grafts] 06-26-2023 Chronic Other circulatory disease (13 sources) Presence of other vascular implants and grafts; 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: [Other postprocedural status] 06-25-2023 Chronic Other circulatory disease (20 sources) Abnormal peripheral pulse; 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: [Other specified symptoms and signs involving the circulatory and respiratory systems] 09-18-2021 Episodic Other circulatory disease (9 sources) Other specified symptoms and signs involving the circulatory and respiratory systems; 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: [Other symptoms involving cardiovascular system] Episodic Other connective tissue disease (1 source) Fibromyalgia; 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: [Fibromyalgia] 12-05-2015 Episodic Other connective tissue disease (1 source) Pain in both feet; 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: [Pain in both feet] 12-05-2015 Episodic Other connective tissue disease (1 source) Synovial cyst of knee; 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: [Synovial cyst of popliteal space (Renamed from Freeman cyst)] 12-05-2015 Episodic Other connective tissue disease (20 sources) Muscle pain; 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: [Myalgia, unspecified site] 09-18-2021 Episodic Other connective tissue disease (9 sources) Myalgia, unspecified site; 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: [Myalgia and myositis, unspecified] Episodic Other diseases of bladder and urethra (8 sources) Mass of urinary bladder; 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: [Other specified disorders of bladder] 09-30-2023 Chronic Other diseases of bladder and urethra (2 sources) Other specified disorders of bladder; 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: [Other specified disorders of bladder] 10-03-2023 Chronic Other diseases of kidney and ureters (1 source) Cyst of kidney; 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: [Renal cyst, left] 12-05-2015 Episodic Other fractures (6 sources) Fracture of twelfth thoracic vertebra; 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: [Wedge compression fracture of T11-T12 vertebra, initial encounter for closed fracture] 12-30-2023 Episodic Other lower respiratory disease (1 source) Disorder of lung; 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: [Other disorders of lung] 12-05-2015 Episodic Other lower respiratory disease (20 sources) Dyspnea on exertion; 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: [Dyspnea, unspecified] 10-31-2020 Episodic Other lower respiratory disease (20 sources) Dyspnea; 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: [Shortness of breath] 11-07-2020 Episodic Other lower respiratory disease (20 sources) Nodule of lung; 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: [Solitary pulmonary nodule] 11-02-2020 Episodic Other male genital disorders (1 source) Male erectile dysfunction, unspecified; 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: [Erectile dysfunction] 12-05-2015 Chronic Other nervous system disorders (6 sources) Difficulty walking; 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: [Difficulty in walking, not elsewhere classified] 08-16-2024 Chronic Other nervous system disorders (1 source) Paresthesia; 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: [Paresthesia] 12-05-2015 Episodic Other nervous system disorders (17 sources) Dysarthria; 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: [Dysarthria and anarthria] 05-20-2023 Episodic Other nervous system disorders (8 sources) Dysarthria and anarthria; 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: [Dysarthria] 05-23-2023 Episodic Other nervous system disorders (6 sources) Other acute postprocedural pain; 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: [Acute postoperative pain of right knee] 08-16-2024 Episodic Other non-traumatic joint disorders (2 sources) Joint pain; 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: [Arthralgia] 12-05-2015 Episodic Other non-traumatic joint disorders (3 sources) Pain in right knee; 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: [Chronic pain of both knees] Onset: 11-15-2024 12-05-2015 Episodic Other non-traumatic joint disorders (1 source) Arthralgia of the ankle and/or foot; 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: [Pain in joint involving ankle and foot, unspecified laterality] 12-05-2015 Episodic Other nutritional; endocrine; and metabolic disorders (1 source) Body mass index 25-29 - overweight; 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: [BMI 26.0-26.9,adult] 12-05-2015 Episodic Other nutritional; endocrine; and metabolic disorders (20 sources) Decrease in appetite; 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: [Anorexia] 10-30-2022 Episodic Other nutritional; endocrine; and metabolic disorders (6 sources) Adult failure to thrive syndrome; 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: [Adult failure to thrive] 08-16-2024 Episodic Other nutritional; endocrine; and metabolic disorders (1 source) Adult failure to thrive; 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: [Adult failure to thrive] Onset: 09-16-2024 Episodic Other skin disorders (1 source) Night sweats; 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: [Night sweats] 12-05-2015 Episodic Other upper respiratory disease (1 source) Allergic rhinitis; 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: [Allergic rhinitis] 12-05-2015 Chronic Other upper respiratory infections (3 sources) Sore throat symptom; 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: [ACUTE PHARYNGITIS (462.)] Resolved: 05-22-2009 12-05-2015 Episodic Fatuma-; endo-; and myocarditis; cardiomyopathy (20 sources) 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 classified elsewhere; 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: [Primary cardiomyopathy] Onset: 08-28-2010 08-28-2010 Chronic Pneumonia (except that caused by tuberculosis or sexually transmitted disease) (20 sources) Pneumonia; 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: [Pneumonia, unspecified organism] 12-12-2020 Episodic Pulmonary heart disease (20 sources) Pulmonary embolism; 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: [Other pulmonary embolism without acute cor pulmonale] 05-29-2023 Episodic Residual codes; unclassified (1 source) Obstructive sleep apnea of adult; 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: [Obstructive sleep apnea, adult] 12-05-2015 Chronic Residual codes; unclassified (1 source) Non-smoker; 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: [Nonsmoker] 12-05-2015 Episodic Residual codes; unclassified (1 source) Sleep disorder; 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: [Sleep disorder] 12-05-2015 Episodic Residual codes; unclassified (1 source) Swelling - edema - symptom; 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: [Edema, unspecified] Episodic Residual codes; unclassified (20 sources) Edema; 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: [Edema, unspecified] 10-31-2020 Episodic Residual codes; unclassified (3 sources) Edema, unspecified; 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: [Edema] Episodic Residual codes; unclassified (6 sources) Bilateral lower limb edema; 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: [Localized edema] 12-31-2023 Episodic Respiratory failure; insufficiency; arrest (adult) (20 sources) Acute hypoxemic respiratory failure; 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: [Acute respiratory failure with hypoxia] 12-12-2020 Episodic Septicemia (except in labor) (20 sources) Sepsis; 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: [Sepsis, unspecified organism] 12-12-2020 Episodic Spondylosis; intervertebral disc disorders; other back problems (8 sources) Degeneration of intervertebral disc; 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: [Degenerative disc disease] Onset: 12-31-2023 12-05-2015 Chronic Thyroid disorders (20 sources) Hypothyroidism; 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: [Hypothyroidism] Onset: 07-28-2024 12-05-2015 Chronic Unclassified (1 source) Low back pain, unspecified; 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: [Low back pain, unspecified] Onset: 12-31-2023 Viral infection (1 source) COVID-19; 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: [COVID-19] Onset: 01-19-2024 Past or Other Problems Problem Classification Problem Date Documented Da te Episodic/Chronic Acute and unspecified renal failure (20 sources) Injury of kidney; 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: [Acute kidney failure, unspecified] Onset: 01-26-2024 12-12-2020 Episodic Conditions associated with dizziness or vertigo (2 sources) Dizziness and giddiness; 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: [Dizziness and giddiness] Onset: 04-25-2024 Resolved: 11-14-2008 04-16-2015 Episodic Coronary atherosclerosis and other heart disease (20 sources) Presence of aortocoronary bypass graft; 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: [Personal history of surgery to heart and great vessels, presenting hazards to health] Onset: 01-30-2021 Episodic Deficiency and other anemia (1 source) Anemia, unspecified; 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: [Anemia, unspecified] Onset: 07-06-2024 Episodic Gastrointestinal hemorrhage (20 sources) Hematochezia; 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: [Gastrointestinal hemorrhage] Onset: 04-27-2017 04-28-2017 Episodic Headache; including migraine (1 source) Acute headache; 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: [Acute nonintractable headache, unspecified headache type] Resolved: 10-15-2015 10-15-2015 Episodic Mycoses (2 sources) Candidiasis of mouth; 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: [Candidiasis of mouth] Resolved: 01-24-2015 05-03-2015 Episodic Nonspecific chest pain (4 sources) Chest pain; 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: [Chest pain] Onset: 06-13-2016 Resolved: 10-24-2015 06-13-2016 Episodic Other and unspecified benign neoplasm (4 sources) Benign neoplasm of kidney; 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] Onset: 10-14-2016 10-15-2016 Episodic Other and unspecified benign neoplasm (1 source) Polyp of colon; 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: [n (Renamed from Colon polyp)] Resolved: 11-14-2008 11-14-2008 Episodic Other circulatory disease (2 sources) Elevated blood-pressure reading, without diagnosis of hypertension; 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: [Elevated blood-pressure reading, without diagnosis of hypertension] Onset: 09-05-2016 09-05-2016 Episodic Other connective tissue disease (1 source) Swelling of limb; 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: [Swelling of limb] Resolved: 11-07-2015 11-07-2015 Episodic Other connective tissue disease (1 source) Pain in right leg; 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: [Pain in right leg] Onset: 06-30-2024 Episodic Other connective tissue disease (1 source) Arthrodesis status; 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: [Arthrodesis status] Onset: 12-31-2023 Episodic Other endocrine disorders (1 source) Hypoglycemia; 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: [Hypoglycemia] Resolved: 05-22-2009 05-22-2009 Chronic Other fractures (1 source) Wedge compression fracture of T11-T12 vertebra, sequela; 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: [Wedge compression fracture of T11-T12 vertebra, sequela] Onset: 12-31-2023 Episodic Other fractures (1 source) Wedge compression fracture of first lumbar vertebra, initial encounter for closed fracture; 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: [Wedge compression fracture of first lumbar vertebra, initial encounter for closed fracture] Onset: 12-18-2023 Episodic Other gastrointestinal disorders (1 source) Angiodysplasia of colon with hemorrhage; 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: [Angiodysplasia of colon with hemorrhage] Onset: 05-10-2024 Episodic Other inflammatory condition of skin (1 source) Seborrheic dermatitis; 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: [Seborrheic dermatitis, unspecified] Resolved: 11-28-2009 04-23-2015 Episodic Other lower respiratory disease (1 source) Cough; 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: [Cough] Resolved: 11-14-2008 11-14-2008 Episodic Other lower respiratory disease (19 sources) Other forms of dyspnea; 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: [Other respiratory abnormalities] Onset: 04-06-2024 11-04-2022 Episodic Other non-traumatic joint disorders (1 source) Shoulder pain; 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: [Shoulder pain] Resolved: 11-14-2008 11-14-2008 Episodic Other screening for suspected conditions (not mental disorders or infectious disease) (20 sources) Blood chemistry abnormal; 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: [Other specified abnormal findings of blood chemistry] Onset: 08-04-2024 Resolved: 06-27-2014 12-05-2015 Episodic Other skin disorders (2 sources) Swelling of skin; 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: [Localized swelling, mass and lump, left lower limb] Onset: 11-10-2016 11-10-2016 Episodic Other upper respiratory disease (1 source) Pain in throat; 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: [Throat pain] Resolved: 10-11-2010 05-15-2015 Episodic Phlebitis; thrombophlebitis and thromboembolism (20 sources) Deep venous thrombosis; 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: [Acute embolism and thrombosis of unspecified deep veins of unspecified lower extremity] Onset: 01-13-2024 05-17-2021 Episodic Comment on above: Venous duplex 01/05/20 24:Right DVT up to the femoral veinLeft DVT up to the iliac veins Residual codes; unclassified (1 source) Edema of extremity; 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: [Edema extremities] Resolved: 11-07-2015 11-07-2015 Episodic Residual codes; unclassified (1 source) Localized edema; 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: [Localized edema] Onset: 01-08-2024 Episodic Spondylosis; intervertebral disc disorders; other back problems (8 sources) Backache; 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: [Backache] Onset: 12-31-2023 12-05-2015 Episodic Syncope (2 sources) Syncope; 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: [Syncope and collapse] Onset: 08-28-2010 08-28-2010 Episodic Unclassified (20 sources) FH: Hypertension; 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: [FH: Raised blood lipids] Onset: 08-28-2010 Resolved: 05-05-2016 05-03-2014 Episodic Urinary tract infections (14 sources) Urinary tract infectious disease; 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: [Urinary tract infection, site not specified] Onset: 01-04-2024 12-05-2015 Episodic Results Test Name Value Interpretation Reference Range Facility Absolute lymphocyte countOrd ered By: Franck Good on 11-14-2024 Lymphocytes Auto (Unsp spec) [#/Vol] 1.22 10*3/uL 0.83-4.51 [facility] Absolute neutrophil countOrd ered By: Franck Good on 11-14-2024 Neutrophils (Bld) [#/Vol] 3.6 10*3/uL 2.0-7.7 [facility] Automated lymphocyte count a s percentage of total leukocytesOrdered By: Franck Good on 11-14-2024 Lymphocytes/100 WBC Auto (Unsp spec) 21.8 % 19-41 [facility] Basophil percentageOrdered B y: Franck Good on 11-14-2024 Basophils/100 WBC (Bld) 0.7 % 0-1 [facility] CBC W/Diff, Automatedon -06 06-2024 Absolute Lymph 1.22 X10 3/uL Normal 0.83-4.51 [facility] Comment on above: Performed By: #### L 101.9900, L501.6710, L100.0100 ####[facility] [address] [place], [address] Absolute Neut 3.6 X10 3/uL Normal 2.0-7.7 [facility] Comment on above: Performed By: #### L 101.9900, L501.6710, L100.0100 ####[facility] [address] [place], [address] Basophils/100 WBC (Bld) 0.7 % Normal 0-1 [facility] Comment on above: Performed By: #### L 101.9900, L501.6710, L100.0100 ####[facility] [address] [place], [address] Eosinophils/100 WBC (Bld) 2.0 % Normal 0-5 [facility] Comment on above: Performed By: #### L 101.9900, L501.6710, L100.0100 ####[facility] [address] [place], [address] Erythrocyte distribution width (RBC) [Ratio] 12.6 % Normal 11.6-14.6 [facility] Comment on above: Performed By: #### L 101.9900, L501.6710, L100.0100 ####[facility] [address] [place], [address] Hematocrit (Bld) [Volume fraction] 40.6 % Normal 40-54 [facility] Comment on above: Performed By: #### L 101.9900, L501.6710, L100.0100 ####[facility] [address] [place], [address] Hemoglobin (Bld) [Mass/Vol] 13.5 g/dL Normal 13.0-16.5 [facility] Comment on above: Performed By: #### L 101.9900, L501.6710, L100.0100 ####[facility] [address] [place], [address] IG% 0.200 Normal 0.0-0.9 [facility] Comment on above: Result Comment: IG% - Immature Granulocytes (promyelocytes, myelocytes andmetamyelocytes) > 1% indicates that a LEFT SHIFT is Present. Performed By: #### L 101.9900, L501.6710, L100.0100 ####[facility] [address] [place], [address] Lymphocytes/100 WBC (Bld) 21.8 % Normal 19-41 [facility] Comment on above: Performed By: #### L 101.9900, L501.6710, L100.0100 ####[facility] [address] [place], [address] MCH (RBC) [Entitic mass] 31.0 pg Normal 27.0-32.0 [facility] Comment on above: Performed By: #### L 101.9900, L501.6710, L100.0100 ####[facility] [address] [place], [address] MCHC (RBC) [Mass/Vol] 33.3 g/dL Normal 32-36 [facility] Comment on above: Performed By: #### L 101.9900, L501.6710, L100.0100 ####[facility] [address] [place], [address] MCV (RBC) [Entitic vol] 93.1 fL Normal 80-94 [facility] Comment on above: Performed By: #### L 101.9900, L501.6710, L100.0100 ####[facility] [address] [place], [address] Monocytes/100 WBC (Bld) 11.3 % High 0-10 [facility] Comment on above: Performed By: #### L 101.9900, L501.6710, L100.0100 ####[facility] [address] [place], [address] Neutrophils/100 WBC (Bld) 64.0 % Normal 47-70 [facility] Comment on above: Performed By: #### L 101.9900, L501.6710, L100.0100 ####[facility] [address] [place], [address] Nucleated RBC (Bld) [#/Vol] 0 10*3/uL Normal 0-5 [facility] Comment on above: Performed By: #### L 101.9900, L501.6710, L100.0100 ####[facility] [address] [place], [address] Platelet mean volume (Bld) [Entitic vol] 9.6 fL Normal 6.2-12.0 [facility] Comment on above: Performed By: #### L 101.9900, L501.6710, L100.0100 ####[facility] [address] [place], [address] Platelets (Bld) [#/Vol] 298 10*3/uL Normal 150-450 [facility] Comment on above: Performed By: #### L 101.9900, L501.6710, L100.0100 ####[facility] [address] [place], [address] RBC (Bld) [#/Vol] 4.36 10*6/uL Low 4.6-6.2 [facility] Comment on above: Performed By: #### L 101.9900, L501.6710, L100.0100 ####[facility] [address] [place], [address] RDW SD 43.3 fl Normal 35.1-43.9 [facility] Comment on above: Performed By: #### L 101.9900, L501.6710, L100.0100 ####[facility] [address] [place], [address] WBC (Bld) [#/Vol] 5.6 10*3/uL Normal 4.4-11.0 [facility] Comment on above: Performed By: #### L 101.9900, L501.6710, L100.0100 ####[facility] [address] [place], [address] CRPon 11-14-2024 C-REACTIVE PROT 7.31 mg/L High 0.0-3.0 [facility] Comment on above: Performed By: #### L 101.9900, L501.6710, L100.0100 ####[facility] [address] [place], [address] Emergency Department Summary on 11-14-2024 Emergency Department Summary Normal [facility] Eosinophil percentageOrdered By: Remus Unghannah on 11-14-2024 Eosinophils/100 WBC (Bld) 2.0 % 0-5 [facility] Erythrocyte Sed Rateon 11-14 SED RATE 7 mm/hr Normal 0-20 [facility] Comment on above: Performed By: #### L 101.9900, L501.6710, L100.0100 ####[facility] [address] [place], [address] Erythrocyte distribution wid th ratioOrdered By: Remus Unghannah on 11-14-2024 Erythrocyte distribution width (RBC) [Ratio] 12.6 % 11.6-14.6 [facility] Erythrocyte distribution wid th standard deviationOrdered By: Remus Ungur on 11-14-2024 Erythrocyte distribution width (RBC) [Ratio] 43.3 fl 35.1-43.9 [facility] Erythrocyte sedimentation ra teOrdered By: Franck Good on 11-14-2024 ESR (Bld) [Velocity] 7 mm/h 0-20 [facility] Hematocrit Auto (Bld) [Volum e fraction]Ordered By: Franck Good on 11-14-2024 Hematocrit (Bld) [Volume fraction] 40.6 % 40-54 [facility] Hemoglobin measurementOrdere d By: Franck Good on 11-14-2024 Hemoglobin (Bld) [Mass/Vol] 13.5 g/dL 13.0-16.5 [facility] Immature granulocytes/100 WB C Auto (Bld)Ordered By: Franck Good on 11-14-2024 Immature granulocytes/100 WBC (Bld) 0.200 % 0.0-0.9 [facility] Comment on above: IG% - Immature Granu locytes (promyelocytes, myelocytes and metamyelocytes) > 1% indicates that a LEFT SHIFT is Present. Knee 4 or More Viewson 11-14 Knee 4 or More Views Normal [facility] MCV (mean corpuscular volume ) determinationOrdered By: Franck Good on 11-14-2024 MCV (RBC) [Entitic vol] 93.1 fL 80-94 [facility] Mean corpuscular hemoglobin (MCH) determinationOrdered By: Franck Good on 11-14-2024 MCH (RBC) [Entitic mass] 31.0 pg 27.0-32.0 [facility] Mean corpuscular hemoglobin concentration (MCHC) determinationOrdered By: Franck Good on 11-14-2024 MCHC (RBC) [Mass/Vol] 33.3 g/dL 32-36 [facility] Mean platelet volume determi nationOrdered By: Franck Good on 11-14-2024 Platelet mean volume (Bld) [Entitic vol] 9.6 fL 6.2-12.0 [facility] Monocyte percentageOrdered B y: Franck Good on 11-14-2024 Monocytes/100 WBC (Bld) 11.3 % High 0-10 [facility] Neutrophil percentageOrdered By: Franck Good on 11-14-2024 Neutrophils/100 WBC (Bld) 64.0 % 47-70 [facility] Nucleated red blood cell per centageOrdered By: Franck Good on 11-14-2024 Nucleated RBC/100 WBC (Bld) [Ratio] 0 % 0-5 [facility] Platelet countOrdered By: Abbie Good on 11-14-2024 Platelets (Bld) [#/Vol] 298 10*3/uL 150-450 [facility] RBC Auto (Bld) [#/Vol]Ordere d By: Franck Good on 11-14-2024 RBC (Bld) [#/Vol] 4.36 10*6/uL Low 4.6-6.2 [facility] Serum or plasma C reactive p rotein measurement (mass/volume)Ordered By: Franck Good on 11-14-2024 CRP [Mass/Vol] 7.31 mg/L High 0.0-3.0 [facility] White blood cell (WBC) count Ordered By: Franck Good on 11-14-2024 WBC (Bld) [#/Vol] 5.6 10*3/uL 4.4-11.0 [facility] Cardiology Visit Reporton Cardiology Visit Report Normal [facility] Anion gap in Serum or Plasma Ordered By: Karis Ca on 09-30-2024 Anion gap [Moles/Vol] 10 mmol/L 5-15 [facility] BUN/creatinine ratioOrdered By: Karis Ca on 09-30-2024 Urea nitrogen/Creatinine [Mass ratio] 17.4 mg/mg 10-20 [facility] Carbon dioxide, total [Moles /volume] in Central venous bloodOrdered By: Karis Ca on 09-30-2024 CO2 [Moles/Vol] 24.5 mmol/L 21.0-32.0 [facility] Chloride assayOrdered By: Julien Ca on 09-30-2024 Chloride [Moles/Vol] 108 mmol/L 98-108 [facility] GFR/1.73 sq M.predicted tiffany g non-blacks MDRD (S/P/Bld) [Vol rate/Area]Ordered By: Karis Ca on 09-30-2024 Estimated GFR (MDRD) Non-Af Amer 68 >60 [facility] Comment on above: mL/min/1.73m2 CKD-EP I Creatinine Equation (2020) Glomerular filtration rate ( GFR) estimation/1.73 sq m using serum, plasma, or whole bOrdered By: Karis Ca on 09-30-2024 GFR/1.73 sq M.predicted among non-blacks MDRD (S/P/Bld) [Vol rate/Area] 68 mL/min/{1.73_m2} >60 [facility] Comment on above: mL/min/1.73m2 CKD-EP I Creatinine Equation (2020) Potassium (Unsp spec) [Mass/ Vol]Ordered By: Karis Ca on 09-30-2024 Potassium [Moles/Vol] 4.1 mmol/L 3.3-5.1 [facility] Potassium measurement (mass/ volume)Ordered By: Karis Ca on 09-30-2024 Potassium (Unsp spec) [Mass/Vol] 4.1 mmol/L 3.3-5.1 [facility] Renal Profileon 09-30-2024 Albumin [Mass/Vol] 3.7 g/dL Normal 3.4-4.8 [facility] Comment on above: Performed By: #### L 500.3600 ####[facility] [address] [place], [address] BUN/CRE 17.4 RATIO Normal 10-20 [facility] Comment on above: Performed By: #### L 500.3600 ####[facility] [address] [place], [address] Calcium [Mass/Vol] 9.0 mg/dL Normal 7.6-11.0 [facility] Comment on above: Performed By: #### L 500.3600 ####[facility] [address] [place], [address] Chloride [Moles/Vol] 108 mmol/L Normal 98-108 [facility] Comment on above: Performed By: #### L 500.3600 ####[facility] [address] [place], [address] CO2 [Moles/Vol] 24.5 mmol/L Normal 21.0-32.0 [facility] Comment on above: Performed By: #### L 500.3600 ####[facility] [address] [place], [address] Creatinine [Mass/Vol] 1.09 mg/dL Normal 0.70-1.20 [facility] Comment on above: Performed By: #### L 500.3600 ####[facility] [address] [place], [address] GAP 10 Normal 5-15 [facility] Comment on above: Performed By: #### L 500.3600 ####[facility] [address] [place], [address] GFR/1.73 sq M.predicted among non-blacks MDRD (S/P/Bld) [Vol rate/Area] 68 mL/min/{1.73_m2} Normal >60 [facility] Comment on above: Result Comment: mL/m in/1.73m2 CKD-EPI Creatinine Equation (2020) Performed By: #### L 500.3600 ####[facility] [address] [place], [address] Glucose [Mass/Vol] 82 mg/dL Normal 70-99 [facility] Comment on above: Performed By: #### L 500.3600 ####[facility] [address] [place], [address] Phosphate [Mass/Vol] 3.4 mg/dL Normal 2.7-4.5 [facility] Comment on above: Performed By: #### L 500.3600 ####[facility] [address] [place], [address] Potassium [Moles/Vol] 4.1 mmol/L Normal 3.3-5.1 [facility] Comment on above: Performed By: #### L 500.3600 ####[facility] [address] [place], [place], [address] Sodium [Moles/Vol] 142 mmol/L Normal 133-145 [facility] Comment on above: Performed By: #### L 500.3600 ####[facility] [address] [place], [address] Urea nitrogen [Mass/Vol] 19 mg/dL Normal 4-19 [facility] Comment on above: Performed By: #### L 500.3600 ####[facility] [address] [place], [place], [address] Serum creatinine measurement (mass/volume)Ordered By: Karis Ca on 09-30-2024 Creatinine [Mass/Vol] 1.09 mg/dL 0.70-1.20 [facility] Serum glucose measurement (m ass/volume)Ordered By: Karis Ca on 09-30-2024 Glucose [Mass/Vol] 82 mg/dL 70-99 [facility] Serum or plasma albumin ambar urement (mass/volume)Ordered By: Karis Ca on 09-30-2024 Albumin [Mass/Vol] 3.7 g/dL 3.4-4.8 [facility] Serum or plasma calcium ambar urement (mass/volume)Ordered By: Karis Ca on 09-30-2024 Calcium [Mass/Vol] 9.0 mg/dL 7.6-11.0 [facility] Serum or plasma urea nitroge n measurement (mass/volume)Ordered By: Karis Ca on 09-30-2024 Urea nitrogen [Mass/Vol] 19 mg/dL 4-19 [facility] Serum phosphorus measurement Ordered By: Karis Ca on 09-30-2024 Phosphorus Level 3.4 mg/dL 2.7-4.5 [facility] Sodium levelOrdered By: Anam Ca on 09-30-2024 Sodium [Moles/Vol] 142 mmol/L 133-145 [facility] Anion gap in Serum or Plasma Ordered By: Yahaira Rangel on 08-24-2024 Anion gap [Moles/Vol] 10 mmol/L 5-15 [facility] BUN/creatinine ratioOrdered By: Yahaira Rangel on 08-24-2024 Urea nitrogen/Creatinine [Mass ratio] 26.6 mg/mg High 10- [facility] Basic Metabolic Profile (BMP )on 08-24-2024 BUN/CRE 26.6 RATIO High 10-20 [facility] Comment on above: Order Comment: 101.1 Performed By: #### L 500.2500, L100.0500, L501.5200 ####[facility] [address] [place], [address] Calcium [Mass/Vol] 7.2 mg/dL Low 7.6-11.0 [facility] Comment on above: Order Comment: 101.1 Performed By: #### L 500.2500, L100.0500, L501.5200 ####[facility] [address] [place], [address] Chloride [Moles/Vol] 107 mmol/L Normal 98-108 [facility] Comment on above: Order Comment: 101.1 Performed By: #### L 500.2500, L100.0500, L501.5200 ####[facility] [address] [place], [address] CO2 [Moles/Vol] 24.1 mmol/L Normal 21.0-32.0 [facility] Comment on above: Order Comment: 101.1 Performed By: #### L 500.2500, L100.0500, L501.5200 ####[facility] [address] [place], [address] Creatinine [Mass/Vol] 1.07 mg/dL Normal 0.70-1.20 [facility] Comment on above: Order Comment: 101.1 Performed By: #### L 500.2500, L100.0500, L501.5200 ####[facility] [address] [place], [address] GAP 10 Normal 5-15 [facility] Comment on above: Order Comment: 101.1 Performed By: #### L 500.2500, L100.0500, L501.5200 ####[facility] [address] [place], [address] GFR/1.73 sq M.predicted among non-blacks MDRD (S/P/Bld) [Vol rate/Area] 70 mL/min/{1.73_m2} Normal >60 [facility] Comment on above: Order Comment: 101.1 Result Comment: mL/m in/1.73m2 CKD-EPI Creatinine Equation (2020) Performed By: #### L 500.2500, L100.0500, L501.5200 ####[facility] [address] [place], [address] Glucose [Mass/Vol] 88 mg/dL Normal 70-99 [facility] Comment on above: Order Comment: 101.1 Performed By: #### L 500.2500, L100.0500, L501.5200 ####[facility] [address] [place], [address] Potassium [Moles/Vol] 4.3 mmol/L Normal 3.3-5.1 [facility] Comment on above: Order Comment: 101.1 Performed By: #### L 500.2500, L100.0500, L501.5200 ####[facility] [address] [place], [address] Sodium [Moles/Vol] 142 mmol/L Normal 133-145 [facility] Comment on above: Order Comment: 101.1 Performed By: #### L 500.2500, L100.0500, L501.5200 ####[facility] [address] [place], [address] Urea nitrogen [Mass/Vol] 29 mg/dL High 4-19 [facility] Comment on above: Order Comment: 101.1 Performed By: #### L 500.2500, L100.0500, L501.5200 ####[facility] [address] [place], [address] CBC-Complete Blood Cnt No Sahara ffon 08-24-2024 Erythrocyte distribution width (RBC) [Ratio] 15.3 % High 11.6-14.6 [facility] Comment on above: Order Comment: 101.1 Performed By: #### L 500.2500, L100.0500, L501.5200 ####[facility] [address] [place], [address] Hematocrit (Bld) [Volume fraction] 35.6 % Low 40-54 [facility] Comment on above: Order Comment: 101.1 Performed By: #### L 500.2500, L100.0500, L501.5200 ####[facility] [address] [place], [address] Hemoglobin (Bld) [Mass/Vol] 11.5 g/dL Low 13.0-16.5 [facility] Comment on above: Order Comment: 101.1 Performed By: #### L 500.2500, L100.0500, L501.5200 ####[facility] [address] [place], [address] MCH (RBC) [Entitic mass] 30.3 pg Normal 27.0-32.0 [facility] Comment on above: Order Comment: 101.1 Performed By: #### L 500.2500, L100.0500, L501.5200 ####[facility] [address] [place], [address] MCHC (RBC) [Mass/Vol] 32.3 g/dL Normal 32-36 [facility] Comment on above: Order Comment: 101.1 Performed By: #### L 500.2500, L100.0500, L501.5200 ####[facility] [address] [place], [address] MCV (RBC) [Entitic vol] 93.9 fL Normal 80-94 [facility] Comment on above: Order Comment: 101.1 Performed By: #### L 500.2500, L100.0500, L501.5200 ####[facility] [address] [place], [address] Platelet mean volume (Bld) [Entitic vol] 9.3 fL Normal 6.2-12.0 [facility] Comment on above: Order Comment: 101.1 Performed By: #### L 500.2500, L100.0500, L501.5200 ####[facility] [address] [place], [address] Platelets (Bld) [#/Vol] 491 10*3/uL High 150-450 [facility] Comment on above: Order Comment: 101.1 Performed By: #### L 500.2500, L100.0500, L501.5200 ####[facility] [address] [place], [address] RBC (Bld) [#/Vol] 3.79 10*6/uL Low 4.6-6.2 [facility] Comment on above: Order Comment: 101.1 Performed By: #### L 500.2500, L100.0500, L501.5200 ####[facility] [address] [place], [address] RDW SD 50.8 fl High 35.1-43.9 [facility] Comment on above: Order Comment: 101.1 Performed By: #### L 500.2500, L100.0500, L501.5200 ####[facility] [address] [place], [address] WBC (Bld) [#/Vol] 5.1 10*3/uL Normal 4.4-11.0 [facility] Comment on above: Order Comment: 101.1 Performed By: #### L 500.2500, L100.0500, L501.5200 ####[facility] [address] [place], [address] Carbon dioxide, total [Moles /volume] in Central venous bloodOrdered By: Yahaira Rangel on 08-24-2024 CO2 [Moles/Vol] 24.1 mmol/L 21.0-32.0 [facility] Chloride assayOrdered By: Ryan Rangel on 08-24-2024 Chloride [Moles/Vol] 107 mmol/L 98-108 [facility] Erythrocyte distribution wid th (RBC) [Ratio]Ordered By: Yahaira Rangel on 08-24-2024 Erythrocyte distribution width (RBC) [Entitic vol] 50.8 fL High 35.1-43.9 [facility] Erythrocyte distribution wid th ratioOrdered By: Yahaira Rangel on 08-24-2024 Erythrocyte distribution width (RBC) [Ratio] 15.3 % High 11.6-14.6 [facility] Erythrocyte distribution wid th standard deviationOrdered By: Yahaira Rangel on 08-24-2024 Erythrocyte distribution width (RBC) [Ratio] 50.8 fl High 35.1-43.9 [facility] GFR/1.73 sq M.predicted tiffany g non-blacks MDRD (S/P/Bld) [Vol rate/Area]Ordered By: Yahaira Rangel on 08-24-2024 Estimated GFR (MDRD) Non-Af Amer 70 >60 [facility] Comment on above: mL/min/1.73m2 CKD-EP I Creatinine Equation (2020) Glomerular filtration rate ( GFR) estimation/1.73 sq m using serum, plasma, or whole bOrdered By: Yahaira Rangel on 08-24-2024 GFR/1.73 sq M.predicted among non-blacks MDRD (S/P/Bld) [Vol rate/Area] 70 mL/min/{1.73_m2} >60 [facility] Comment on above: mL/min/1.73m2 CKD-EP I Creatinine Equation (2020) Hematocrit Auto (Bld) [Volum e fraction]Ordered By: Yahaira Rangel on 08-24-2024 Hematocrit (Bld) [Volume fraction] 35.6 % Low 40-54 [facility] Hemoglobin measurementOrdere d By: Yahaira Rangel on 08-24-2024 Hemoglobin (Bld) [Mass/Vol] 11.5 g/dL Low 13.0-16.5 [facility] MCV (mean corpuscular volume ) determinationOrdered By: Yahaira Rangel on 08-24-2024 MCV (RBC) [Entitic vol] 93.9 fL 80-94 [facility] Magnesiumon 08-24-2024 Magnesium [Mass/Vol] 2.4 mg/dL High 1.5-2.2 [facility] Comment on above: Order Comment: 101.1 Performed By: #### L 500.2500, L100.0500, L501.5200 ####[facility] [address] [place], [place], [address] Magnesium (Unsp spec) [Mass/ Vol]Ordered By: Yahaira Rangel on 08-24-2024 Magnesium [Mass/Vol] 2.4 mg/dL High 1.5-2.2 [facility] Magnesium measurement (mass/ volume)Ordered By: Yahaira Rangel on 08-24-2024 Magnesium (Unsp spec) [Mass/Vol] 2.4 mg/dL High 1.5-2.2 [facility] Mean corpuscular hemoglobin (MCH) determinationOrdered By: Yahaira Rangel on 08-24-2024 MCH (RBC) [Entitic mass] 30.3 pg 27.0-32.0 [facility] Mean corpuscular hemoglobin concentration (MCHC) determinationOrdered By: Yahaira Rangel on 08-24-2024 MCHC (RBC) [Mass/Vol] 32.3 g/dL 32-36 [facility] Mean platelet volume determi nationOrdered By: Yahaira Rangel on 08-24-2024 Platelet mean volume (Bld) [Entitic vol] 9.3 fL 6.2-12.0 [facility] Platelet countOrdered By: Ryan Rangel on 08-24-2024 Platelets (Bld) [#/Vol] 491 10*3/uL High 150-450 [facility] Potassium (Unsp spec) [Mass/ Vol]Ordered By: Yahaira Rangel on 08-24-2024 Potassium [Moles/Vol] 4.3 mmol/L 3.3-5.1 [facility] Potassium measurement (mass/ volume)Ordered By: Yahaira Rangel on 08-24-2024 Potassium (Unsp spec) [Mass/Vol] 4.3 mmol/L 3.3-5.1 [facility] RBC Auto (Bld) [#/Vol]Ordere d By: Yahaira Rangel on 08-24-2024 RBC (Bld) [#/Vol] 3.79 10*6/uL Low 4.6-6.2 [facility] Serum creatinine measurement (mass/volume)Ordered By: Yahaira Rangel on 08-24-2024 Creatinine [Mass/Vol] 1.07 mg/dL 0.70-1.20 [facility] Serum glucose measurement (m ass/volume)Ordered By: Yahaira Rangel on 08-24-2024 Glucose [Mass/Vol] 88 mg/dL 70-99 [facility] Serum or plasma calcium ambar urement (mass/volume)Ordered By: Yahaira Rangel on 08-24-2024 Calcium [Mass/Vol] 7.2 mg/dL Low 7.6-11.0 [facility] Serum or plasma urea nitroge n measurement (mass/volume)Ordered By: Yahaira Rangel on 08-24-2024 Urea nitrogen [Mass/Vol] 29 mg/dL High 4-19 [facility] Sodium levelOrdered By: Krysta Rangel on 08-24-2024 Sodium [Moles/Vol] 142 mmol/L 133-145 [facility] White blood cell (WBC) count Ordered By: Yahaira Rangel on 08-24-2024 WBC (Bld) [#/Vol] 5.1 10*3/uL 4.4-11.0 [facility] Anion gap in Serum or Plasma Ordered By: Yahaira Rangel on 08-22-2024 Anion gap [Moles/Vol] 11 mmol/L - [facility] BUN/creatinine ratioOrdered By: Yahaira Rangel on 08-22-2024 Urea nitrogen/Creatinine [Mass ratio] 28.6 mg/mg High 03-20 [facility] Basic Metabolic Profile (BMP )on 08-22-2024 BUN/CRE 28.6 RATIO High 03-20 [facility] Comment on above: Order Comment: 101.1 Performed By: #### L 500.2500, L100.0500 ####[facility] [address] [place], [address] Calcium [Mass/Vol] 9.5 mg/dL Normal 7.6-11.0 [facility] Comment on above: Order Comment: 101.1 Performed By: #### L 500.2500, L100.0500 ####[facility] [address] [place], [address] Chloride [Moles/Vol] 105 mmol/L Normal 98-108 [facility] Comment on above: Order Comment: 101.1 Performed By: #### L 500.2500, L100.0500 ####[facility] [address] [place], [address] CO2 [Moles/Vol] 25.4 mmol/L Normal 21.0-32.0 [facility] Comment on above: Order Comment: 101.1 Performed By: #### L 500.2500, L100.0500 ####[facility] [address] [place], [address] Creatinine [Mass/Vol] 1.18 mg/dL Normal 0.70-1.20 [facility] Comment on above: Order Comment: 101.1 Performed By: #### L 500.2500, L100.0500 ####[facility] [address] [place], [address] GAP 11 Normal - [facility] Comment on above: Order Comment: 101.1 Performed By: #### L 500.2500, L100.0500 ####[facility] [address] [place], [address] GFR/1.73 sq M.predicted among non-blacks MDRD (S/P/Bld) [Vol rate/Area] 62 mL/min/{1.73_m2} Normal >60 [facility] Comment on above: Order Comment: 101.1 Result Comment: mL/m in/1.73m2 CKD-EPI Creatinine Equation (2020) Performed By: #### L 500.2500, L100.0500 ####[facility] [address] [place], [address] Glucose [Mass/Vol] 96 mg/dL Normal 70-99 [facility] Comment on above: Order Comment: 101.1 Performed By: #### L 500.2500, L100.0500 ####[facility] [address] [place], [address] Potassium [Moles/Vol] 4.4 mmol/L Normal 3.3-5.1 [facility] Comment on above: Order Comment: 101.1 Performed By: #### L 500.2500, L100.0500 ####[facility] [address] [place], [address] Sodium [Moles/Vol] 141 mmol/L Normal 133-145 [facility] Comment on above: Order Comment: 101.1 Performed By: #### L 500.2500, L100.0500 ####[facility] [address] [place], [address] Urea nitrogen [Mass/Vol] 34 mg/dL High 4-19 [facility] Comment on above: Order Comment: 101.1 Performed By: #### L 500.2500, L100.0500 ####[facility] [address] [place], [address] CBC-Complete Blood Cnt No Di london 08-22-2024 Erythrocyte distribution width (RBC) [Ratio] 15.2 % High 11.6-14.6 [facility] Comment on above: Order Comment: 101.1 Performed By: #### L 500.2500, L100.0500 ####[facility] [address] [place], [address] Hematocrit (Bld) [Volume fraction] 35.3 % Low 40-54 [facility] Comment on above: Order Comment: 101.1 Performed By: #### L 500.2500, L100.0500 ####[facility] [address] [place], [address] Hemoglobin (Bld) [Mass/Vol] 11.3 g/dL Low 13.0-16.5 [facility] Comment on above: Order Comment: 101.1 Performed By: #### L 500.2500, L100.0500 ####[facility] [address] [place], [address] MCH (RBC) [Entitic mass] 30.1 pg Normal 27.0-32.0 [facility] Comment on above: Order Comment: 101.1 Performed By: #### L 500.2500, L100.0500 ####[facility] [address] [place], [address] MCHC (RBC) [Mass/Vol] 32.0 g/dL Normal 32-36 [facility] Comment on above: Order Comment: 101.1 Performed By: #### L 500.2500, L100.0500 ####[facility] [address] [place], [address] MCV (RBC) [Entitic vol] 93.9 fL Normal 80-94 [facility] Comment on above: Order Comment: 101.1 Performed By: #### L 500.2500, L100.0500 ####[facility] [address] [place], [address] Platelet mean volume (Bld) [Entitic vol] 9.6 fL Normal 6.2-12.0 [facility] Comment on above: Order Comment: 101.1 Performed By: #### L 500.2500, L100.0500 ####[facility] [address] [place], [address] Platelets (Bld) [#/Vol] 531 10*3/uL High 150-450 [facility] Comment on above: Order Comment: 101.1 Performed By: #### L 500.2500, L100.0500 ####[facility] [address] [place], [address] RBC (Bld) [#/Vol] 3.76 10*6/uL Low 4.6-6.2 [facility] Comment on above: Order Comment: 101.1 Performed By: #### L 500.2500, L100.0500 ####[facility] [address] [place], [address] RDW SD 51.6 fl High 35.1-43.9 [facility] Comment on above: Order Comment: 101.1 Performed By: #### L 500.2500, L100.0500 ####[facility] [address] [place], [address] WBC (Bld) [#/Vol] 5.3 10*3/uL Normal 4.4-11.0 [facility] Comment on above: Order Comment: 101.1 Performed By: #### L 500.2500, L100.0500 ####[facility] [address] [place], [address] Carbon dioxide, total [Moles /volume] in Central venous bloodOrdered By: Yahaira Rangel on 08-22-2024 CO2 [Moles/Vol] 25.4 mmol/L 21.0-32.0 [facility] Chloride assayOrdered By: Ryan Rangel on 08-22-2024 Chloride [Moles/Vol] 105 mmol/L 98-108 [facility] Erythrocyte distribution wid th (RBC) [Ratio]Ordered By: Yahaira Rangel on 08-22-2024 Erythrocyte distribution width (RBC) [Entitic vol] 51.6 fL High 35.1-43.9 [facility] Erythrocyte distribution wid th ratioOrdered By: Yahaira Rangel on 08-22-2024 Erythrocyte distribution width (RBC) [Ratio] 15.2 % High 11.6-14.6 [facility] Erythrocyte distribution wid th standard deviationOrdered By: Yahaira Rangel on 08-22-2024 Erythrocyte distribution width (RBC) [Ratio] 51.6 fl High 35.1-43.9 [facility] GFR/1.73 sq M.predicted tiffany g non-blacks MDRD (S/P/Bld) [Vol rate/Area]Ordered By: Yahaira Rangel on 08-22-2024 Estimated GFR (MDRD) Non-Af Amer 62 >60 [facility] Comment on above: mL/min/1.73m2 CKD-EP I Creatinine Equation (2020) Glomerular filtration rate ( GFR) estimation/1.73 sq m using serum, plasma, or whole bOrdered By: Yahaira Rangel on 08-22-2024 GFR/1.73 sq M.predicted among non-blacks MDRD (S/P/Bld) [Vol rate/Area] 62 mL/min/{1.73_m2} >60 [facility] Comment on above: mL/min/1.73m2 CKD-EP I Creatinine Equation (2020) Hematocrit Auto (Bld) [Volum e fraction]Ordered By: Yahaira Rangel on 08-22-2024 Hematocrit (Bld) [Volume fraction] 35.3 % Low 40-54 [facility] Hemoglobin measurementOrdere d By: Yahaira Rangel on 08-22-2024 Hemoglobin (Bld) [Mass/Vol] 11.3 g/dL Low 13.0-16.5 [facility] MCV (mean corpuscular volume ) determinationOrdered By: Yahaira Rangel on 08-22-2024 MCV (RBC) [Entitic vol] 93.9 fL 80-94 [facility] Mean corpuscular hemoglobin (MCH) determinationOrdered By: Yahaira Rangel on 08-22-2024 MCH (RBC) [Entitic mass] 30.1 pg 27.0-32.0 [facility] Mean corpuscular hemoglobin concentration (MCHC) determinationOrdered By: Yahaira Rangel on 08-22-2024 MCHC (RBC) [Mass/Vol] 32.0 g/dL 32-36 [facility] Mean platelet volume determi nationOrdered By: Yahaira Rangel on 08-22-2024 Platelet mean volume (Bld) [Entitic vol] 9.6 fL 6.2-12.0 [facility] Platelet countOrdered By: Ryan Rangel on 08-22-2024 Platelets (Bld) [#/Vol] 531 10*3/uL High 150-450 [facility] Potassium (Unsp spec) [Mass/ Vol]Ordered By: Yahaira Rangel on 08-22-2024 Potassium [Moles/Vol] 4.4 mmol/L 3.3-5.1 [facility] Potassium measurement (mass/ volume)Ordered By: Yahaira Rangel on 08-22-2024 Potassium (Unsp spec) [Mass/Vol] 4.4 mmol/L 3.3-5.1 [facility] RBC Auto (Bld) [#/Vol]Ordere d By: Yahaira Rangel on 08-22-2024 RBC (Bld) [#/Vol] 3.76 10*6/uL Low 4.6-6.2 [facility] Serum creatinine measurement (mass/volume)Ordered By: Yahaira Rangel on 08-22-2024 Creatinine [Mass/Vol] 1.18 mg/dL 0.70-1.20 [facility] Serum glucose measurement (m ass/volume)Ordered By: Yahaira Rangel on 08-22-2024 Glucose [Mass/Vol] 96 mg/dL 70-99 [facility] Serum or plasma calcium ambar urement (mass/volume)Ordered By: Yahaira Rangel on 08-22-2024 Calcium [Mass/Vol] 9.5 mg/dL 7.6-11.0 [facility] Serum or plasma urea nitroge n measurement (mass/volume)Ordered By: Yahaira Rangel on 08-22-2024 Urea nitrogen [Mass/Vol] 34 mg/dL High - [facility] Sodium levelOrdered By: Krysta Rangel on 08-22-2024 Sodium [Moles/Vol] 141 mmol/L 133-145 [facility] White blood cell (WBC) count Ordered By: Yahaira Rangel on 08-22-2024 WBC (Bld) [#/Vol] 5.3 10*3/uL 4.4-11.0 [facility] Anion gap in Serum or Plasma Ordered By: Yahaira Rangel on 08-17-2024 Anion gap [Moles/Vol] 11 mmol/L 5-15 [facility] BUN/creatinine ratioOrdered By: Yahaira Rangel on 08-17-2024 Urea nitrogen/Creatinine [Mass ratio] 27.4 mg/mg High 10- [facility] Basic Metabolic Profile (BMP )on 08-17-2024 BUN/CRE 27.4 RATIO High - [facility] Comment on above: Order Comment: 101 Performed By: #### L 100.0500, L500.4100, L501.5200, L506.1001, L503.0106, L501.9520, L500.2500 ####[facility] [address] [place], [address] Calcium [Mass/Vol] 8.9 mg/dL Normal 7.6-11.0 [facility] Comment on above: Order Comment: 101 Performed By: #### L 100.0500, L500.4100, L501.5200, L506.1001, L503.0106, L501.9520, L500.2500 ####[facility] [address] [place], [address] Chloride [Moles/Vol] 105 mmol/L Normal 98-108 [facility] Comment on above: Order Comment: 101 Performed By: #### L 100.0500, L500.4100, L501.5200, L506.1001, L503.0106, L501.9520, L500.2500 ####[facility] [address] [place], [address] CO2 [Moles/Vol] 23.0 mmol/L Normal 21.0-32.0 [facility] Comment on above: Order Comment: 101 Performed By: #### L 100.0500, L500.4100, L501.5200, L506.1001, L503.0106, L501.9520, L500.2500 ####[facility] [address] [place], [address] Creatinine [Mass/Vol] 1.14 mg/dL Normal 0.70-1.20 [facility] Comment on above: Order Comment: 101 Performed By: #### L 100.0500, L500.4100, L501.5200, L506.1001, L503.0106, L501.9520, L500.2500 ####[facility] [address] [place], [place], [id number] GAP 11 Normal 5-15 [facility] Comment on above: Order Comment: 101 Performed By: #### L 100.0500, L500.4100, L501.5200, L506.1001, L503.0106, L501.9520, L500.2500 ####[facility] [address] [place], [address] GFR/1.73 sq M.predicted among non-blacks MDRD (S/P/Bld) [Vol rate/Area] 65 mL/min/{1.73_m2} Normal >60 [facility] Comment on above: Order Comment: 101 Result Comment: mL/m in/1.73m2 CKD-EPI Creatinine Equation (2020) Performed By: #### L 100.0500, L500.4100, L501.5200, L506.1001, L503.0106, L501.9520, L500.2500 ####[facility] [address] [place], [address] Glucose [Mass/Vol] 77 mg/dL Normal 70-99 [facility] Comment on above: Order Comment: 101 Performed By: #### L 100.0500, L500.4100, L501.5200, L506.1001, L503.0106, L501.9520, L500.2500 ####[facility] [address] [place], [address] Potassium [Moles/Vol] 4.4 mmol/L Normal 3.3-5.1 [facility] Comment on above: Order Comment: 101 Performed By: #### L 100.0500, L500.4100, L501.5200, L506.1001, L503.0106, L501.9520, L500.2500 ####[facility] [address] [place], [address] Sodium [Moles/Vol] 139 mmol/L Normal 133-145 [facility] Comment on above: Order Comment: 101 Performed By: #### L 100.0500, L500.4100, L501.5200, L506.1001, L503.0106, L501.9520, L500.2500 ####[facility] [address] [place], [address] Urea nitrogen [Mass/Vol] 31 mg/dL High -19 [facility] Comment on above: Order Comment: 101 Performed By: #### L 100.0500, L500.4100, L501.5200, L506.1001, L503.0106, L501.9520, L500.2500 ####[facility] [address] [place], [address] CBC-Complete Blood Cnt No Di ffon 08-17-2024 Erythrocyte distribution width (RBC) [Ratio] 15.9 % High 11.6-14.6 [facility] Comment on above: Order Comment: 101 Performed By: #### L 100.0500, L500.4100, L501.5200, L506.1001, L503.0106, L501.9520, L500.2500 ####[facility] [address] [place], [address] Hematocrit (Bld) [Volume fraction] 31.6 % Low 40-54 [facility] Comment on above: Order Comment: 101 Performed By: #### L 100.0500, L500.4100, L501.5200, L506.1001, L503.0106, L501.9520, L500.2500 ####[facility] [address] [place], [address] Hemoglobin (Bld) [Mass/Vol] 10.4 g/dL Low 13.0-16.5 [facility] Comment on above: Order Comment: 101 Performed By: #### L 100.0500, L500.4100, L501.5200, L506.1001, L503.0106, L501.9520, L500.2500 ####[facility] [address] [place], [address] MCH (RBC) [Entitic mass] 31.3 pg Normal 27.0-32.0 [facility] Comment on above: Order Comment: 101 Performed By: #### L 100.0500, L500.4100, L501.5200, L506.1001, L503.0106, L501.9520, L500.2500 ####[facility] [address] [place], [address] MCHC (RBC) [Mass/Vol] 32.9 g/dL Normal 32-36 [facility] Comment on above: Order Comment: 101 Performed By: #### L 100.0500, L500.4100, L501.5200, L506.1001, L503.0106, L501.9520, L500.2500 ####[facility] [address] [place], [address] MCV (RBC) [Entitic vol] 95.2 fL High 80-94 [facility] Comment on above: Order Comment: 101 Performed By: #### L 100.0500, L500.4100, L501.5200, L506.1001, L503.0106, L501.9520, L500.2500 ####[facility] [address] [place], [address] Platelet mean volume (Bld) [Entitic vol] 9.3 fL Normal 6.2-12.0 [facility] Comment on above: Order Comment: 101 Performed By: #### L 100.0500, L500.4100, L501.5200, L506.1001, L503.0106, L501.9520, L500.2500 ####[facility] [address] [place], [address] Platelets (Bld) [#/Vol] 569 10*3/uL High 150-450 [facility] Comment on above: Order Comment: 101 Performed By: #### L 100.0500, L500.4100, L501.5200, L506.1001, L503.0106, L501.9520, L500.2500 ####[facility] [address] [place], [address] RBC (Bld) [#/Vol] 3.32 10*6/uL Low 4.6-6.2 [facility] Comment on above: Order Comment: 101 Performed By: #### L 100.0500, L500.4100, L501.5200, L506.1001, L503.0106, L501.9520, L500.2500 ####[facility] [address] [place], [address] RDW SD 52.1 fl High 35.1-43.9 [facility] Comment on above: Order Comment: 101 Performed By: #### L 100.0500, L500.4100, L501.5200, L506.1001, L503.0106, L501.9520, L500.2500 ####[facility] [address] [place], [address] WBC (Bld) [#/Vol] 6.4 10*3/uL Normal 4.4-11.0 [facility] Comment on above: Order Comment: 101 Performed By: #### L 100.0500, L500.4100, L501.5200, L506.1001, L503.0106, L501.9520, L500.2500 ####[facility] [address] [facility] [place], [place], [address] Calculated very low density lipoprotein (VLDL) cholesterol measurementOrdered By: Yahaira Rangel on 08-17-2024 Calculated very low density lipoprotein (VLDL) cholesterol measurement 39 mg/dL 5-40 [facility] VLDL Cholesterol 39 mg/dL 5-40 [facility] Carbon dioxide, total [Moles /volume] in Central venous bloodOrdered By: Yahaira Rangel on 08-17-2024 CO2 [Moles/Vol] 23.0 mmol/L 21.0-32.0 [facility] Chloride assayOrdered By: Ryan Rangel on 08-17-2024 Chloride [Moles/Vol] 105 mmol/L 98-108 [facility] Erythrocyte distribution wid th (RBC) [Ratio]Ordered By: Yahaira Rangel on 08-17-2024 Erythrocyte distribution width (RBC) [Entitic vol] 52.1 fL High 35.1-43.9 [facility] Erythrocyte distribution wid th ratioOrdered By: Yahaira Rangel on 08-17-2024 Erythrocyte distribution width (RBC) [Ratio] 15.9 % High 11.6-14.6 [facility] Erythrocyte distribution wid th standard deviationOrdered By: Yahaira Rangel on 08-17-2024 Erythrocyte distribution width (RBC) [Ratio] 52.1 fl High 35.1-43.9 [facility] GFR/1.73 sq M.predicted tiffany g non-blacks MDRD (S/P/Bld) [Vol rate/Area]Ordered By: Yahaira Rangel on 08-17-2024 Estimated GFR (MDRD) Non-Af Amer 65 >60 [facility] Comment on above: mL/min/1.73m2 CKD-EP I Creatinine Equation (2020) Glomerular filtration rate ( GFR) estimation/1.73 sq m using serum, plasma, or whole bOrdered By: Yahaira Rangel on 08-17-2024 GFR/1.73 sq M.predicted among non-blacks MDRD (S/P/Bld) [Vol rate/Area] 65 mL/min/{1.73_m2} >60 [facility] Comment on above: mL/min/1.73m2 CKD-EP I Creatinine Equation (2020) Hematocrit Auto (Bld) [Volum e fraction]Ordered By: Yahaira Rangel on 08-17-2024 Hematocrit (Bld) [Volume fraction] 31.6 % Low 40-54 [facility] Hemoglobin measurementOrdere d By: Yahaira Rangel on 08-17-2024 Hemoglobin (Bld) [Mass/Vol] 10.4 g/dL Low 13.0-16.5 [facility] L503.0106on 08-17-2024 Cobalamin (Vitamin B12) [Mass/Vol] 971 pg/mL High 180-914 [facility] Comment on above: Order Comment: 101 Performed By: #### L 100.0500, L500.4100, L501.5200, L506.1001, L503.0106, L501.9520, L500.2500 ####[facility] [address] [place], [address] L506.1001on 08-17-2024 Vitamin D 25-OH 60.1 ng/mL Normal 30-100 [facility] Comment on above: Order Comment: 101 Result Comment: Maya min D StatusDeficiency: <20 ng/mL (50nmol/L)Insufficiency: 20-30 ng/mL (50-75 nmol/L)Sufficiency: 30-100 ng/mL (75-250 nmol/L)Toxicity: >100 ng/mL (>250 nmol/L) Performed By: #### L 100.0500, L500.4100, L501.5200, L506.1001, L503.0106, L501.9520, L500.2500 ####[facility] [address] [place], [place], [id number]22) LDL calc ser/plasOrdered By: Yahaira Rangel on 08-17-2024 Cholesterol in LDL [Mass/Vol] 112 mg/dL [facility] Comment on above: Gfssffoegt=401-114 m g/dL & Higher Xqdh=384 mg/dL or greater LDL Cholesterol, Calculated 112 mg/dL [facility] Comment on above: Mbhxhauhqg=647-617 m g/dL & Higher Qzfz=959 mg/dL or greater Lipid Profileon 08-17-2024 CHOL:HDL 6.81 Normal [facility] Comment on above: Order Comment: 101 Performed By: #### L 100.0500, L500.4100, L501.5200, L506.1001, L503.0106, L501.9520, L500.2500 ####[facility] [address] [place], [place], [phone] Cholesterol [Mass/Vol] 177 mg/dL Normal <=200 [facility] Comment on above: Order Comment: 101 Result Comment: Chol esterol level, Desirable <200 mg/dLBorderline high cholesterol 200-239 mg/dLHigh cholesterol >=240 mg/dLRecommendations of the NCEP Adult Treatment Panel for thefollowing risk-cutoff thresholds for the [place] American[place]ulation. Performed By: #### L 100.0500, L500.4100, L501.5200, L506.1001, L503.0106, L501.9520, L500.2500 ####[facility] [address] [place], [place], [id number] Cholesterol in HDL [Mass/Vol] 26 mg/dL Low [facility] Comment on above: Order Comment: 101 Result Comment: Leslie onal Cholesterol Education Program (NCEP) guidelines:<40 mg/dL: Low HDL-cholesterol (major risk factor for CHD)>= 60 mg/dL: High HDL-cholesterol (negative risk factor forCHD)HDL-cholesterol is affected by a number of factors, e.g.smoking, exercise, hormones, sex and age. Performed By: #### L 100.0500, L500.4100, L501.5200, L506.1001, L503.0106, L501.9520, L500.2500 ####[facility] [address] [place], [address] Cholesterol in LDL [Mass/Vol] 112 mg/dL Normal [facility] Comment on above: Order Comment: 101 Result Comment: Bord hcakiy=743-398 mg/dL Higher Myoh=440 mg/dL or greater Performed By: #### L 100.0500, L500.4100, L501.5200, L506.1001, L503.0106, L501.9520, L500.2500 ####[facility] [address] [place], [address] Cholesterol in VLDL [Mass/Vol] 39 mg/dL Normal 5-40 [facility] Comment on above: Order Comment: 101 Performed By: #### L 100.0500, L500.4100, L501.5200, L506.1001, L503.0106, L501.9520, L500.2500 ####[facility] [address] [place], [address] Triglyceride [Mass/Vol] 195 mg/dL Normal [facility] Comment on above: Order Comment: 101 Result Comment: The drugs N-Acetylcysteine and Metamizole may falselydepress this assay.Normal range: <150 mg/dLBorderline High: 150-199 mg/dLHigh: 200-499 mg/dLVery High: >500 mg/dL Performed By: #### L 100.0500, L500.4100, L501.5200, L506.1001, L503.0106, L501.9520, L500.2500 ####[facility] [address] [place], [address] MCV (mean corpuscular volume ) determinationOrdered By: Yahaira Rangel on 08-17-2024 MCV (RBC) [Entitic vol] 95.2 fL High 80-94 [facility] Magnesiumon 08-17-2024 Magnesium [Mass/Vol] 2.3 mg/dL High 1.5-2.2 [facility] Comment on above: Order Comment: 101 Performed By: #### L 100.0500, L500.4100, L501.5200, L506.1001, L503.0106, L501.9520, L500.2500 ####[facility] [address] [place], [address] Magnesium (Unsp spec) [Mass/ Vol]Ordered By: Yahaira Rangel on 08-17-2024 Magnesium [Mass/Vol] 2.3 mg/dL High 1.5-2.2 [facility] Magnesium measurement (mass/ volume)Ordered By: Yahaira Rangel on 08-17-2024 Magnesium (Unsp spec) [Mass/Vol] 2.3 mg/dL High 1.5-2.2 [facility] Mean corpuscular hemoglobin (MCH) determinationOrdered By: Yahaira Rangel on 08-17-2024 MCH (RBC) [Entitic mass] 31.3 pg 27.0-32.0 [facility] Mean corpuscular hemoglobin concentration (MCHC) determinationOrdered By: Yahaira Rangel on 08-17-2024 MCHC (RBC) [Mass/Vol] 32.9 g/dL 32-36 [facility] Mean platelet volume determi nationOrdered By: Yahaira Rangel on 08-17-2024 Platelet mean volume (Bld) [Entitic vol] 9.3 fL 6.2-12.0 [facility] Platelet countOrdered By: Ryan Rangel on 08-17-2024 Platelets (Bld) [#/Vol] 569 10*3/uL High 150-450 [facility] Potassium (Unsp spec) [Mass/ Vol]Ordered By: Yahaira Rangel on 08-17-2024 Potassium [Moles/Vol] 4.4 mmol/L 3.3-5.1 [facility] Potassium measurement (mass/ volume)Ordered By: Yahaira Rangel on 08-17-2024 Potassium (Unsp spec) [Mass/Vol] 4.4 mmol/L 3.3-5.1 [facility] RBC Auto (Bld) [#/Vol]Ordere d By: Yahaira Rangel on 08-17-2024 RBC (Bld) [#/Vol] 3.32 10*6/uL Low 4.6-6.2 [facility] Screening total cholesterol/ high density lipoprotein (HDL) cholesterol ratioOrdered By: Yahaira Rangel on 08-17-2024 Cholesterol.total/Brenda sterol in HDL [Mass ratio] 6.81 {ratio} [facility] Serum creatinine measurement (mass/volume)Ordered By: Yahaira Rangel on 08-17-2024 Creatinine [Mass/Vol] 1.14 mg/dL 0.70-1.20 [facility] Serum glucose measurement (m ass/volume)Ordered By: Yahaira Rangel on 08-17-2024 Glucose [Mass/Vol] 77 mg/dL 70-99 [facility] Serum or plasma calcium ambar urement (mass/volume)Ordered By: Yahaira Rangel on 08-17-2024 Calcium [Mass/Vol] 8.9 mg/dL 7.6-11.0 [facility] Serum or plasma cholesterol in HDL measurement (mass/volume)Ordered By: Yahaira Rangel on 08-17-2024 Cholesterol in HDL [Mass/Vol] 26 mg/dL Low >40 [facility] Comment on above: National Cholesterol Education Program (NCEP) guidelines:<40 mg/dL: Low HDL-cholesterol (major risk factor for CHD)>= 60 mg/dL: High HDL-cholesterol (negative risk factor for CHD)HDL-cholesterol is affected by a number of factors, e.g. smoking, exercise, hormones, sex and age. Serum or plasma cholesterol measurement (mass/volume)Ordered By: Yahaira Rangel on 08-17-2024 Cholesterol [Mass/Vol] 177 mg/dL <201 [facility] Comment on above: Cholesterol level, D esirable <200 mg/dLBorderline high cholesterol 200-239 mg/dLHigh cholesterol >=240 mg/dLRecommendations of the NCEP Adult Treatment Panel for the following risk-cutoff thresholds for the [place] population. Serum or plasma urea nitroge n measurement (mass/volume)Ordered By: Yahaira Rangel on 08-17-2024 Urea nitrogen [Mass/Vol] 31 mg/dL High 4-19 [facility] Sodium levelOrdered By: Krysta Rangel on 08-17-2024 Sodium [Moles/Vol] 139 mmol/L 133-145 [facility] TSH DL <= 0.005 mIU/L QnOrde red By: Yahaira Rangel on 08-17-2024 Thyroid Stimulating Hormone (TSH) 3.090 uIU/mL 0.300-4.20 0 [facility] TSH Qn 3.090 uIU/mL 0.300-4.20 0 [facility] Thyroid Stim Hormone (TSH)on 08-17-2024 TSH 3.090 uIU/mL Normal 0.300-4.20 0 [facility] Comment on above: Order Comment: 101 Performed By: #### L 100.0500, L500.4100, L501.5200, L506.1001, L503.0106, L501.9520, L500.2500 ####[facility] [address] [place], [address] Triglycerides measurementOrd ered By: Yahaira Rangel on 08-17-2024 Triglyceride [Mass/Vol] 195 mg/dL <199 [facility] Comment on above: The drugs N-Acetylcy steine and Metamizole may falsely depress this assay. Normal range: <150 mg/dLBorderline High: 150-199 mg/dLHigh: 200-499 mg/dLVery High: >500 mg/dL Vitamin B12 ser/plasOrdered By: Yahaira Rangel on 08-17-2024 Cobalamin (Vitamin B12) [Mass/Vol] 971 pg/mL High 180-914 [facility] Vitamin D, 25-hydroxyOrdered By: Yahaira Rangel on 08-17-2024 Vitamin D 25-Hydroxy 60.1 ng/mL 30-100 [facility] Comment on above: Vitamin D StatusDefi ciency: <20 ng/mL (50nmol/L)Insufficiency: 20-30 ng/mL (50-75 nmol/L)Sufficiency: 30-100 ng/mL (75-250 nmol/L)Toxicity: >100 ng/mL (>250 nmol/L) White blood cell (WBC) count Ordered By: Yahaira Rangel on 08-17-2024 WBC (Bld) [#/Vol] 6.4 10*3/uL 4.4-11.0 [facility] Basic Metabolic Profile (BMP )on 08-16-2024 BUN Normal 4-19 [facility] Comment on above: Result Comment: Canc elled via OM: MD Ordered Performed By: #### L 100.0100, L500.2500 ####[facility] [address] [place], [address] BUN/CRE Normal 10-20 [facility] Comment on above: Result Comment: Canc elled via OM: MD Ordered Performed By: #### L 100.0100, L500.2500 ####[facility] [address] [place], [address] Calcium Normal 7.6-11.0 [facility] Comment on above: Result Comment: Canc elled via OM: MD Ordered Performed By: #### L 100.0100, L500.2500 ####[facility] [address] [place], [address] CL Normal 98-108 [facility] Comment on above: Result Comment: Canc elled via OM: MD Ordered Performed By: #### L 100.0100, L500.2500 ####[facility] [address] [place], [address] CO2 Normal 21.0-32.0 [facility] Comment on above: Result Comment: Canc elled via OM: MD Ordered Performed By: #### L 100.0100, L500.2500 ####[facility] [address] [place], [address] CREAT,SERUM Normal 0.70-1.20 [facility] Comment on above: Result Comment: Canc elled via OM: MD Ordered Performed By: #### L 100.0100, L500.2500 ####[facility] [address] [place], [address] eGFR Normal >60 [facility] Comment on above: Result Comment: Canc elled via OM: MD Ordered Performed By: #### L 100.0100, L500.2500 ####[facility] [address] [place], [address] GAP Normal 5-15 [facility] Comment on above: Result Comment: Canc elled via OM: MD Ordered Performed By: #### L 100.0100, L500.2500 ####[facility] [address] [place], [address] GLU Normal 70-99 [facility] Comment on above: Result Comment: Canc elled via OM: MD Ordered Performed By: #### L 100.0100, L500.2500 ####[facility] [address] [place], [address] Potassium Normal 3.3-5.1 [facility] Comment on above: Result Comment: Canc elled via OM: MD Ordered Performed By: #### L 100.0100, L500.2500 ####[facility] [address] [place], [address] Basic Metabolic Profile (BMP) Normal 133-145 [facility] Comment on above: Result Comment: Canc elled via OM: MD Ordered Performed By: #### L 100.0100, L500.2500 ####[facility] [address] [place], [address] CBC W/Diff, Automatedon - Absolute Neut Normal 2.0-7.7 [facility] Comment on above: Result Comment: Canc elled via OM: MD Ordered Performed By: #### L 100.0100, L500.2500 ####[facility] [address] [place], [address] HCT Normal 40-54 [facility] Comment on above: Result Comment: Canc elled via OM: MD Ordered Performed By: #### L 100.0100, L500.2500 ####[facility] [address] [place], [address] HGB Normal 13.0-16.5 [facility] Comment on above: Result Comment: Canc elled via OM: MD Ordered Performed By: #### L 100.0100, L500.2500 ####[facility] [address] [place], [address] MCH Normal 27.0-32.0 [facility] Comment on above: Result Comment: Canc elled via OM: MD Ordered Performed By: #### L 100.0100, L500.2500 ####[facility] [address] [place], [address] MCHC Normal 32-36 [facility] Comment on above: Result Comment: Canc elled via OM: MD Ordered Performed By: #### L 100.0100, L500.2500 ####[facility] [address] [place], [address] MCV Normal 80-94 [facility] Comment on above: Result Comment: Canc elled via OM: MD Ordered Performed By: #### L 100.0100, L500.2500 ####[facility] [address] [place], [address] NEUT% Normal 47-70 [facility] Comment on above: Result Comment: Canc elled via OM: MD Ordered Performed By: #### L 100.0100, L500.2500 ####[facility] [address] [place], [address] PLT Normal 150-450 [facility] Comment on above: Result Comment: Canc elled via OM: MD Ordered Performed By: #### L 100.0100, L500.2500 ####[facility] [address] [place], [address] RBC Normal 4.6-6.2 [facility] Comment on above: Result Comment: Canc elled via OM: MD Ordered Performed By: #### L 100.0100, L500.2500 ####[facility] [address] [place], [address] RDW CV Normal 11.6-14.6 [facility] Comment on above: Result Comment: Canc elled via OM: MD Ordered Performed By: #### L 100.0100, L500.2500 ####[facility] [address] [place], [address] RDW SD Normal 35.1-43.9 [facility] Comment on above: Result Comment: Canc elled via OM: MD Ordered Performed By: #### L 100.0100, L500.2500 ####[facility] [address] [place], [address] WBC Normal 4.4-11.0 [facility] Comment on above: Result Comment: Canc elled via OM: MD Ordered Performed By: #### L 100.0100, L500.2500 ####[facility] [address] [place], [address] Emergency Department Summary on 08-16-2024 Emergency Department Summary Normal [facility] US ANESTHESIA BLOCKon 2024 US ANESTHESIA BLOCK ORIGINAL Images acquired, not reported on this accession number. Normal [facility] .GFRon 08-06-2024 Estimated Glomerular Filtration Rate 74 ml/min/1.73sqm Normal [facility] Comment on above: Result Comment: Stages of Chronic Kidney Disease (CKD) Stage Description eGFR(ml/min/1.73 sq.m.) CKD 1 Normal kidney function or >=90 normal kindney function with possible kidney damage (ex. Proteinuria) CKD 2 Kidney damage with mild loss 60-89 of kidney function CKD 3a Mild to moderate loss of kidney 45-59 function CKD 3b Moderate to severe loss of 30-44 of kindey function CKD 4 Severe loss of kidney function 15-29 CKD 5 Kidney failure <15 Note: (go live 2024) the eGFR calculation was updated to the 2020 CKD-EPI creatinine equation without a race factor to calculate the eGFR results. Performed By: #### B MP, GFR #### [address] [address] BMPon 08-06-2024 BUN/Creatinine Ratio 24 ratio Normal 7-27 [facility] Comment on above: Performed By: #### B MP, GFR #### [address] [address] Calcium [Mass/Vol] 8.3 mg/dL Low 8.4-10.2 [facility] Comment on above: Performed By: #### B MP, GFR #### [address] [address] Chloride [Moles/Vol] 106 mmol/L Normal 98-107 [facility] Comment on above: Performed By: #### B MP, GFR #### [address] [address] CO2 [Moles/Vol] 24 mmol/L Normal 23-31 [facility] Comment on above: Performed By: #### B MP, GFR #### [address] [address] Creatinine [Mass/Vol] 1.02 mg/dL Normal 0.70-1.30 [facility] Comment on above: Result Comment: Test ing performed on Siemens Dimension EXL analyzer using a modified kinetic Ashley technique. Performed By: #### B MP, GFR #### [address] [address] Electrolyte Balance 10.0 mEq/L Normal 4.0-15.0 [facility] Comment on above: Performed By: #### B MP, GFR #### [address] [address] Glucose [Mass/Vol] 86 mg/dL Normal 83-110 [facility] Comment on above: Performed By: #### B MP, GFR #### [address] [address] Potassium [Moles/Vol] 4.2 mmol/L Normal 3.5-5.1 [facility] Comment on above: Performed By: #### B MP, GFR #### [address] [address] Sodium [Moles/Vol] 140 mmol/L Normal 136-145 [facility] Comment on above: Performed By: #### B MP, GFR #### [address] [address] Urea nitrogen [Mass/Vol] 24 mg/dL High 7-18 [facility] Comment on above: Performed By: #### B MP, GFR #### [address] [address] .Auto Diffon 08-04-2024 Basophil, Absolute 0.0 10 3/mcL Normal 0.0-0.2 [facility] Comment on above: Performed By: #### B MP, GFR #### [address] [address] Basophils/100 WBC (Bld) 0.2 % Normal 0.0-2.5 [facility] Comment on above: Performed By: #### B MP, GFR #### [address] [address] Eosinophil, Absolute 0.0 10 3/mcL Normal 0.0-0.7 [facility] Comment on above: Performed By: #### B MP, GFR #### [address] [address] Eosinophils/100 WBC (Bld) 0.5 % Normal 0.0-7.0 [facility] Comment on above: Performed By: #### B MP, GFR #### [address] [place], [place] [address] Lymphocyte, Absolute 1.0 10 3/mcL Normal 0.9-4.3 [facility] Comment on above: Performed By: #### B MP, GFR #### [address] [address] Lymphocytes/100 WBC (Bld) 13.9 % Low 20.0-40.0 [facility] Comment on above: Performed By: #### B MP, GFR #### [address] [address] Monocyte, Absolute 0.8 10 3/mcL Normal 0.1-1.4 [facility] Comment on above: Performed By: #### B MP, GFR #### [address] [address] Monocytes/100 WBC (Bld) 11.2 % Normal 2.0-13.0 [facility] Comment on above: Performed By: #### B MP, GFR #### [address] [address] Neutrophils/100 WBC (Bld) 74.2 % Normal 50.0-75.0 [facility] Comment on above: Performed By: #### B MP, GFR #### [address] [address] .GFRon 08-04-2024 Estimated Glomerular Filtration Rate 53 ml/min/1.73sqm Normal [facility] Comment on above: Result Comment: Stages of Chronic Kidney Disease (CKD) Stage Description eGFR(ml/min/1.73 sq.m.) CKD 1 Normal kidney function or >=90 normal kindney function with possible kidney damage (ex. Proteinuria) CKD 2 Kidney damage with mild loss 60-89 of kidney function CKD 3a Mild to moderate loss of kidney 45-59 function CKD 3b Moderate to severe loss of 30-44 of kindey function CKD 4 Severe loss of kidney function 15-29 CKD 5 Kidney failure <15 Note: (go live 2024) the eGFR calculation was updated to the 2020 CKD-EPI creatinine equation without a race factor to calculate the eGFR results. Performed By: #### B MP, GFR #### [address] [address] .NEUABSon 08-04-2024 Neutrophil, Absolute 5.5 10 3/mcL Normal 2.3-8.1 [facility] Comment on above: Performed By: #### B MP, GFR #### [address] [address] BMPon 08-04-2024 BUN/Creatinine Ratio 25 ratio Normal 7-27 [facility] Comment on above: Performed By: #### B MP, GFR #### [address] [address] Calcium [Mass/Vol] 8.1 mg/dL Low 8.4-10.2 [facility] Comment on above: Performed By: #### B MP, GFR #### [place] [id number] Chloride [Moles/Vol] 110 mmol/L High 98-107 [facility] Comment on above: Performed By: #### B MP, GFR #### [address] [address] CO2 [Moles/Vol] 29 mmol/L Normal 23-31 [facility] Comment on above: Performed By: #### B MP, GFR #### [address] [address] Creatinine [Mass/Vol] 1.34 mg/dL High 0.70-1.30 [facility] Comment on above: Result Comment: Test ing performed on Siemens Dimension EXL analyzer using a modified kinetic Ashley technique. Performed By: #### B MP, GFR #### [place] [address] Electrolyte Balance 3.0 mEq/L Low 4.0-15.0 [facility] Comment on above: Performed By: #### B MP, GFR #### [address] [address] Glucose [Mass/Vol] 89 mg/dL Normal 83-110 [facility] Comment on above: Performed By: #### B MP, GFR #### [place] [id number] Potassium [Moles/Vol] 4.6 mmol/L Normal 3.5-5.1 [facility] Comment on above: Performed By: #### B MP, GFR #### [place] [phone] Sodium [Moles/Vol] 142 mmol/L Normal 136-145 [facility] Comment on above: Performed By: #### B MP, GFR #### [place] [phone] Urea nitrogen [Mass/Vol] 33 mg/dL High 7-18 [facility] Comment on above: Performed By: #### B MP, GFR #### [address] [address] CBCon 08-04-2024 Erythrocyte distribution width (RBC) [Ratio] 15.6 % High 11.5-15.5 [facility] Comment on above: Performed By: #### B MP, GFR #### [address] [address] Hematocrit (Bld) [Volume fraction] 30.6 % Low 40.0-52.0 [facility] Comment on above: Performed By: #### B MP, GFR #### [place] [phone] Hgb 10.4 G/dL Low 13.0-17.5 [facility] Comment on above: Performed By: #### B MP, GFR #### [address] [address] MCH (RBC) [Entitic mass] 30.9 pg Normal 27.0-33.0 [facility] Comment on above: Performed By: #### B MP, GFR #### [address] [address] MCHC 33.9 G/dL Normal 32.0-36.0 [facility] Comment on above: Performed By: #### B MP, GFR #### [address] [address] MCV (RBC) [Entitic vol] 91.1 fL Normal 81.0-100.0 [facility] Comment on above: Performed By: #### B MP, GFR #### [address] [address] Platelet 208 10 3/mcL Normal 150-450 [facility] Comment on above: Performed By: #### B MP, GFR #### [address] [address] Platelet mean volume (Bld) [Entitic vol] 8.2 fL Normal 6.4-10.5 [facility] Comment on above: Performed By: #### B MP, GFR #### [address] [address] RBC 3.35 10 6/mcL Low 4.50-6.00 [facility] Comment on above: Performed By: #### B MP, GFR #### [address] [address] WBC 7.4 10 3/mcL Normal 4.5-10.8 [facility] Comment on above: Performed By: #### B MP, GFR #### [address] [address] .Auto Diffon 08-03-2024 Basophil, Absolute 0.0 10 3/mcL Normal 0.0-0.2 [facility] Comment on above: Performed By: #### B MP, GFR #### [address] [address] Basophils/100 WBC (Bld) 0.1 % Normal 0.0-2.5 [facility] Comment on above: Performed By: #### B MP, GFR #### [address] [address] Eosinophil, Absolute 0.0 10 3/mcL Normal 0.0-0.7 [facility] Comment on above: Performed By: #### B MP, GFR #### [address] [address] Eosinophils/100 WBC (Bld) 0.0 % Normal 0.0-7.0 [facility] Comment on above: Performed By: #### B MP, GFR #### [address] [address] Lymphocyte, Absolute 0.5 10 3/mcL Low 0.9-4.3 [facility] Comment on above: Performed By: #### B MP, GFR #### [address] [address] Lymphocytes/100 WBC (Bld) 3.8 % Low 20.0-40.0 [facility] Comment on above: Performed By: #### B MP, GFR #### [address] [address] Monocyte, Absolute 0.9 10 3/mcL Normal 0.1-1.4 [facility] Comment on above: Performed By: #### B MP, GFR #### [address] [address] Monocytes/100 WBC (Bld) 6.0 % Normal 2.0-13.0 [facility] Comment on above: Performed By: #### B MP, GFR #### [address] [address] Neutrophils/100 WBC (Bld) 90.1 % High 50.0-75.0 [facility] Comment on above: Performed By: #### B MP, GFR #### [address] [address] .GFRon 08-03-2024 Estimated Glomerular Filtration Rate 46 ml/min/1.73sqm Normal [facility] Comment on above: Result Comment: Stages of Chronic Kidney Disease (CKD) Stage Description eGFR(ml/min/1.73 sq.m.) CKD 1 Normal kidney function or >=90 normal kindney function with possible kidney damage (ex. Proteinuria) CKD 2 Kidney damage with mild loss 60-89 of kidney function CKD 3a Mild to moderate loss of kidney 45-59 function CKD 3b Moderate to severe loss of 30-44 of kindey function CKD 4 Severe loss of kidney function 15-29 CKD 5 Kidney failure <15 Note: (go live 2024) the eGFR calculation was updated to the 2020 CKD-EPI creatinine equation without a race factor to calculate the eGFR results. Performed By: #### B MP, GFR #### [address] [address] .NEUABSon 08-03-2024 Neutrophil, Absolute 12.9 10 3/mcL High 2.3-8.1 [facility] Comment on above: Performed By: #### B MP, GFR #### [address] [address] BMPon 08-03-2024 BUN/Creatinine Ratio 19 ratio Normal 7-27 [facility] Comment on above: Performed By: #### B MP, GFR #### [address] [address] Calcium [Mass/Vol] 8.3 mg/dL Low 8.4-10.2 [facility] Comment on above: Performed By: #### B MP, GFR #### [address] [address] Chloride [Moles/Vol] 106 mmol/L Normal 98-107 [facility] Comment on above: Performed By: #### B MP, GFR #### [address] [address] CO2 [Moles/Vol] 26 mmol/L Normal 23-31 [facility] Comment on above: Performed By: #### B MP, GFR #### [address] [address] Creatinine [Mass/Vol] 1.51 mg/dL High 0.70-1.30 [facility] Comment on above: Result Comment: Test ing performed on Siemens Dimension EXL analyzer using a modified kinetic Ashley technique. Performed By: #### B MP, GFR #### [address] [address] Electrolyte Balance 9.0 mEq/L Normal 4.0-15.0 [facility] Comment on above: Performed By: #### B MP, GFR #### [address] [address] Glucose [Mass/Vol] 152 mg/dL High 83-110 [facility] Comment on above: Performed By: #### B MP, GFR #### [address] [address] Potassium [Moles/Vol] 5.1 mmol/L Normal 3.5-5.1 [facility] Comment on above: Performed By: #### B MP, GFR #### [address] [address] Sodium [Moles/Vol] 141 mmol/L Normal 136-145 [facility] Comment on above: Performed By: #### B MP, GFR #### [address] [address] Urea nitrogen [Mass/Vol] 28 mg/dL High 7-18 [facility] Comment on above: Performed By: #### B MP, GFR #### [address] [address] CBCon 08-03-2024 Erythrocyte distribution width (RBC) [Ratio] 15.1 % Normal 11.5-15.5 [facility] Comment on above: Performed By: #### B MP, GFR #### [address] [address] Hematocrit (Bld) [Volume fraction] 34.8 % Low 40.0-52.0 [facility] Comment on above: Performed By: #### B MP, GFR #### [address] [address] Hgb 11.7 G/dL Low 13.0-17.5 [facility] Comment on above: Performed By: #### B MP, GFR #### [address] [address] MCH (RBC) [Entitic mass] 30.4 pg Normal 27.0-33.0 [facility] Comment on above: Performed By: #### B MP, GFR #### [address] [address] MCHC 33.7 G/dL Normal 32.0-36.0 [facility] Comment on above: Performed By: #### B MP, GFR #### [address] [address] MCV (RBC) [Entitic vol] 90.3 fL Normal 81.0-100.0 [facility] Comment on above: Performed By: #### B MP, GFR #### [address] [address] Platelet 262 10 3/mcL Normal 150-450 [facility] Comment on above: Performed By: #### B MP, GFR #### [address] [address] Platelet mean volume (Bld) [Entitic vol] 8.3 fL Normal 6.4-10.5 [facility] Comment on above: Performed By: #### B MP, GFR #### [address] [address] RBC 3.86 10 6/mcL Low 4.50-6.00 [facility] Comment on above: Performed By: #### B MP, GFR #### [address] [address] WBC 14.4 10 3/mcL High 4.5-10.8 [facility] Comment on above: Performed By: #### B MP, GFR #### [address] [address] ABO/Rh (Gel)on 08-02-2024 ABO/Rh Interp Positive Invalid Interpretation Code [facility] Comment on above: Performed By: #### A PATRICIA, ADIFF, ABOGEL, ABSGEL, BMP, CBC, GFR, ALB #### [place] [address] [place], [place] [address] ABS (Gel)on 08-02-2024 ABSC Interp (Gel) Negative Normal [facility] Comment on above: Performed By: #### A PATRICIA, ADIFF, ABOGEL, ABSGEL, BMP, CBC, GFR, ALB #### [facility] [address] [place], [place] [address] XR KNEE 1 OR 2 VIEWS RIGHTon 08-02-2024 XR KNEE 1 OR 2 VIEWS RIGHT ORIGINAL EXAMINATION: TWO XRAY VIEWS OF THE RIGHT KNEE08/02/2024 12:28 pm COMPARISON: None. HISTORY: ORDERING SYSTEM PROVIDED HISTORY: Reason for Exam: Status Post Arthroplasty FINDINGS: Right knee arthroplasty demonstrates anatomic alignment. Skin desi noted. No acute fracture or dislocation is identified. Air in fluid seen in the joint spaces and soft tissues. The joint spaces are maintained. There is no radiopaque foreign body. IMPRESSION: Anatomic alignment of the new right knee arthroplasty Interpreted by: Rodrigo Mai MD Preliminary Report By: Rodrigo Mai MD Electronically signed By Rodrigo Mai MD Dictated Date: 08/02/2024 12:53:02 PM Prelim Date: 08/02/2024 12:53:38 PM Sign Date: 08/02/2024 12:53:38 PM Ordering Provider: DAY NEWBERRY Normal [facility] Absolute lymphocyte countOrd ered By: Day Newberry on 07-21-2024 Lymphocytes Auto (Unsp spec) [#/Vol] 1.13 10*3/uL 0.83-4.51 [facility] Absolute neutrophil countOrd ered By: Day Newberry on 07-21-2024 Neutrophils (Bld) [#/Vol] 3.1 10*3/uL 2.0-7.7 [facility] Albumin, Serumon 07-21-2024 Albumin [Mass/Vol] 3.4 g/dL Normal 3.2-5.0 [facility] Comment on above: Performed By: #### L 501.1800, L100.0100 ####[facility] [address] [place], [address] Automated lymphocyte count a s percentage of total leukocytesOrdered By: Day Newberry on 07-21-2024 Lymphocytes/100 WBC Auto (Unsp spec) 21.4 % 19-41 [facility] Basophil percentageOrdered B y: Day Newberry on 07-21-2024 Basophils/100 WBC (Bld) 1.1 % High 0-1 [facility] CBC W/Diff, Automatedon 07-03-2024 Absolute Lymph 1.13 X10 3/uL Normal 0.83-4.51 [facility] Comment on above: Performed By: #### L 501.1800, L100.0100 ####[facility] [address] [place], [address] Absolute Neut 3.1 X10 3/uL Normal 2.0-7.7 [facility] Comment on above: Performed By: #### L 501.1800, L100.0100 ####[facility] [address] [place], [address] Basophils/100 WBC (Bld) 1.1 % High 0-1 [facility] Comment on above: Performed By: #### L 501.1800, L100.0100 ####[facility] [address] [place], [address] Eosinophils/100 WBC (Bld) 6.6 % High 0-5 [facility] Comment on above: Performed By: #### L 501.1800, L100.0100 ####[facility] [address] [place], [address] Erythrocyte distribution width (RBC) [Ratio] 14.5 % Normal 11.6-14.6 [facility] Comment on above: Performed By: #### L 501.1800, L100.0100 ####[facility] [address] [place], [address] Hematocrit (Bld) [Volume fraction] 43.2 % Normal 40-54 [facility] Comment on above: Performed By: #### L 501.1800, L100.0100 ####[facility] [address] [place], [address] Hemoglobin (Bld) [Mass/Vol] 13.6 g/dL Normal 13.0-16.5 [facility] Comment on above: Performed By: #### L 501.1800, L100.0100 ####[facility] [address] [place], [address] IG% 0.200 Normal 0.0-0.9 [facility] Comment on above: Result Comment: IG% - Immature Granulocytes (promyelocytes, myelocytes andmetamyelocytes) > 1% indicates that a LEFT SHIFT is Present. Performed By: #### L 501.1800, L100.0100 ####[facility] [address] [place], [address] Lymphocytes/100 WBC (Bld) 21.4 % Normal 19-41 [facility] Comment on above: Performed By: #### L 501.1800, L100.0100 ####[facility] [address] [place], [address] MCH (RBC) [Entitic mass] 29.8 pg Normal 27.0-32.0 [facility] Comment on above: Performed By: #### L 501.1800, L100.0100 ####[facility] [address] [place], [address] MCHC (RBC) [Mass/Vol] 31.5 g/dL Low 32-36 [facility] Comment on above: Performed By: #### L 501.1800, L100.0100 ####[facility] [address] [place], [address] MCV (RBC) [Entitic vol] 94.7 fL High 80-94 [facility] Comment on above: Performed By: #### L 501.1800, L100.0100 ####[facility] [address] [place], [address] Monocytes/100 WBC (Bld) 11.3 % High 0-10 [facility] Comment on above: Performed By: #### L 501.1800, L100.0100 ####[facility] [address] [place], [address] Neutrophils/100 WBC (Bld) 59.4 % Normal 47-70 [facility] Comment on above: Performed By: #### L 501.1800, L100.0100 ####[facility] [address] [place], [address] Nucleated RBC (Bld) [#/Vol] 0 10*3/uL Normal 0-5 [facility] Comment on above: Performed By: #### L 501.1800, L100.0100 ####[facility] [address] [place], [address] Platelet mean volume (Bld) [Entitic vol] 10.6 fL Normal 6.2-12.0 [facility] Comment on above: Performed By: #### L 501.1800, L100.0100 ####[facility] [address] [place], [address] Platelets (Bld) [#/Vol] 335 10*3/uL Normal 150-450 [facility] Comment on above: Performed By: #### L 501.1800, L100.0100 ####[facility] [address] [place], [address] RBC (Bld) [#/Vol] 4.56 10*6/uL Low 4.6-6.2 [facility] Comment on above: Performed By: #### L 501.1800, L100.0100 ####[facility] [address] [place], [address] RDW SD 50.1 fl High 35.1-43.9 [facility] Comment on above: Performed By: #### L 501.1800, L100.0100 ####[facility] [address] [place], [address] WBC (Bld) [#/Vol] 5.3 10*3/uL Normal 4.4-11.0 [facility] Comment on above: Performed By: #### L 501.1800, L100.0100 ####[facility] [address] [place], [address] Eosinophil percentageOrdered By: Day Newberry on 07-21-2024 Eosinophils/100 WBC (Bld) 6.6 % High 0-5 [facility] Erythrocyte distribution wid th ratioOrdered By: Day Newberry on 07-21-2024 Erythrocyte distribution width (RBC) [Ratio] 14.5 % 11.6-14.6 [facility] Erythrocyte distribution wid th standard deviationOrdered By: Day Newberry on 07-21-2024 Erythrocyte distribution width (RBC) [Entitic vol] 50.1 fL High 35.1-43.9 [facility] Erythrocyte distribution width (RBC) [Ratio] 50.1 fl High 35.1-43.9 [facility] Hematocrit Auto (Bld) [Volum e fraction]Ordered By: Day Newberry on 07-21-2024 Hematocrit (Bld) [Volume fraction] 43.2 % 40-54 [facility] Hemoglobin measurementOrdere d By: Day Newberry on 07-21-2024 Hemoglobin (Bld) [Mass/Vol] 13.6 g/dL 13.0-16.5 [facility] Immature granulocytes/100 WB C Auto (Bld)Ordered By: Day Newberry on 07-21-2024 Immature granulocytes/100 WBC (Bld) 0.200 % 0.0-0.9 [facility] Comment on above: IG% - Immature Granu locytes (promyelocytes, myelocytes and metamyelocytes) > 1% indicates that a LEFT SHIFT is Present. Lymphocytes Auto (Unsp spec) [#/Vol]Ordered By: Day Newberry on 07-21-2024 Lymphocytes (Bld) [#/Vol] 1.13 10*3/uL 0.83-4.51 [facility] Lymphocytes/100 WBC Auto (Un sp spec)Ordered By: Day Newberry on 07-21-2024 Lymphocytes/100 WBC (Bld) 21.4 % 19-41 [facility] MCV (mean corpuscular volume ) determinationOrdered By: Day Newberry on 07-21-2024 MCV (RBC) [Entitic vol] 94.7 fL High 80-94 [facility] Mean corpuscular hemoglobin (MCH) determinationOrdered By: Day Newberry on 07-21-2024 MCH (RBC) [Entitic mass] 29.8 pg 27.0-32.0 [facility] Mean corpuscular hemoglobin concentration (MCHC) determinationOrdered By: Day Newberry on 07-21-2024 MCHC (RBC) [Mass/Vol] 31.5 g/dL Low 32-36 [facility] Mean platelet volume determi nationOrdered By: Day Newberry on 07-21-2024 Platelet mean volume (Bld) [Entitic vol] 10.6 fL 6.2-12.0 [facility] Monocyte percentageOrdered B y: Day Newberry on 07-21-2024 Monocytes/100 WBC (Bld) 11.3 % High 0-10 [facility] Neutrophil percentageOrdered By: Day Newberry on 07-21-2024 Neutrophils/100 WBC (Bld) 59.4 % 47-70 [facility] Nucleated red blood cell per centageOrdered By: Day Newberry on 07-21-2024 Nucleated RBC/100 WBC (Bld) [Ratio] 0 % 0-5 [facility] Platelet countOrdered By: St mechelle Newberry on 07-21-2024 Platelets (Bld) [#/Vol] 335 10*3/uL 150-450 [facility] RBC Auto (Bld) [#/Vol]Ordere d By: Day Newberry on 07-21-2024 RBC (Bld) [#/Vol] 4.56 10*6/uL Low 4.6-6.2 [facility] Serum or plasma albumin ambar urement (mass/volume)Ordered By: Day Newberry on 07-21-2024 Albumin [Mass/Vol] 3.4 g/dL 3.2-5.0 [facility] White blood cell (WBC) count Ordered By: Day Newberry on 07-21-2024 WBC (Bld) [#/Vol] 5.3 10*3/uL 4.4-11.0 [facility] Direct serum free thyroxine (FT4) measurementOrdered By: Juan Rodriguez on 07-15-2024 Free T4 [Mass/Vol] 1.14 ng/dL 0.76-1.46 [facility] Serum or plasma thyroid stim ulating hormone (TSH) measurement (units/volume)Ordered By: Juan Rodriguez on 07-15-2024 TSH Qn 1.840 uIU/mL 0.358-3.74 0 [facility] T4 Free Directon 07-15-2024 T4 FREE DIRECT 1.14 ng/dL Normal 0.76-1.46 [facility] Comment on above: Performed By: #### L 501.9520, L506.0400 ####[facility] [address] [facility] [place], [place], [id number] TSH QnOrdered By: Juan wyatt on 07-15-2024 Thyroid Stimulating Hormone (TSH) 1.840 uIU/mL 0.358-3.74 0 [facility] Thyroid Stim Hormone (TSH)on 07-15-2024 TSH 1.840 uIU/mL Normal 0.358-3.74 0 [facility] Comment on above: Performed By: #### L 501.9520, L506.0400 ####[facility] [address] [place], [place], [address] CT KNEE W/O CONTRAST RIGHTon 07-08-2024 CT KNEE W/O CONTRAST RIGHT ORIGINAL EXAMINATION: CT OF THE RIGHT KNEE WITHOUT CONTRAST 07/07/2024 4:30 pm TECHNIQUE: CT of the right knee was performed without the administration of intravenous contrast. Multiplanar reformatted images are provided for review. Automated exposure control, iterative reconstruction, and/or weight based adjustment of the mA/kV was utilized to reduce the radiation dose to as low as reasonably achievable. MA KO protocol was performed with axial images through the right hip and right ankle. COMPARISON: None. HISTORY ORDERING SYSTEM PROVIDED HISTORY: Reason for Exam: unilateral osteoarthritis right knee FINDINGS: There is no acute fracture or dislocation. Diffuse bone demineralization. There is no suspicious lytic or blastic osseous lesion. There is no aggressive periosteal reaction. Partially visualized pelvis demonstrates a significant stool burden within the region of the rectum. Mild right femoroacetabular joint space narrowing. Tricompartmental osteoarthritis of the right knee severe in the medial compartment with near bone on bone, subchondral sclerosis and marginal osteophyte formation. There is a button osteophyte of the medial femoral condyle. Moderate knee joint effusion with thickened synovium and calcified intra-articular debris. Nonspecific prepatellar and infrapatellar subcutaneous edema. Vascular calcifications. Limited evaluation of the neurovascular structures with lack of contrast. Retrocalcaneal enthesopathy with dystrophic calcifications in a thickened distal Achilles tendon, correlate clinically for Achilles tendinosis. Accessory navicularis.. Small popliteal Freeman's cyst. There is no evidence of solid or cystic soft tissue mass within limitations for lack of contrast. IMPRESSION: Tricompartmental osteoarthritis of the right knee severe in the medial compartment in patient presenting for preop planning. There is a moderate knee joint effusion with synovitis and calcified intra-articular debris. Additional incidental findings are as detailed above. Interpreted by: Jsesica River Preliminary Report By: Jessica River Electronically signed By Jessica River Dictated Date: 07/08/2024 9:26:53 AM Prelim Date: 07/08/2024 9:30:49 AM Sign Date: 07/08/2024 9:30:49 AM Ordering Provider: DAY NEWBERRY Normal [facility] .Auto Diffon 07-07-2024 Basophil, Absolute 0.0 10 3/mcL Normal 0.0-0.2 [facility] Comment on above: Performed By: #### A PATRICIA, ADIFF, ABOGEL, ABSGEL, BMP, CBC, GFR, ALB #### [facility] [address] [place], [place] [address] Basophils/100 WBC (Bld) 0.7 % Normal 0.0-2.5 [facility] Comment on above: Performed By: #### A PATRICIA, ADIFF, ABOGEL, ABSGEL, BMP, CBC, GFR, ALB #### [address] [address] Eosinophil, Absolute 0.3 10 3/mcL Normal 0.0-0.7 [facility] Comment on above: Performed By: #### A PATRICIA, ADIFF, ABOGEL, ABSGEL, BMP, CBC, GFR, ALB #### [address] [address] Eosinophils/100 WBC (Bld) 4.8 % Normal 0.0-7.0 [facility] Comment on above: Performed By: #### A PATRICIA, ADIFF, ABOGEL, ABSGEL, BMP, CBC, GFR, ALB #### [address] [address] Lymphocyte, Absolute 1.0 10 3/mcL Normal 0.9-4.3 [facility] Comment on above: Performed By: #### A PATRICIA, ADIFF, ABOGEL, ABSGEL, BMP, CBC, GFR, ALB #### [address] [address] Lymphocytes/100 WBC (Bld) 18.0 % Low 20.0-40.0 [facility] Comment on above: Performed By: #### A PATRICIA, ADIFF, ABOGEL, ABSGEL, BMP, CBC, GFR, ALB #### [address] [address] Monocyte, Absolute 0.7 10 3/mcL Normal 0.1-1.4 [facility] Comment on above: Performed By: #### A PATRICIA, ADIFF, ABOGEL, ABSGEL, BMP, CBC, GFR, ALB #### [address] [address] Monocytes/100 WBC (Bld) 11.6 % Normal 2.0-13.0 [facility] Comment on above: Performed By: #### A PATRICIA, ADIFF, ABOGEL, ABSGEL, BMP, CBC, GFR, ALB #### [address] [address] Neutrophils/100 WBC (Bld) 64.9 % Normal 50.0-75.0 [facility] Comment on above: Performed By: #### A PATRICIA, ADIFF, ABOGEL, ABSGEL, BMP, CBC, GFR, ALB #### [address] [address] .GFRon 07-07-2024 Estimated Glomerular Filtration Rate 57 ml/min/1.73sqm Normal [facility] Comment on above: Result Comment: Stages of Chronic Kidney Disease (CKD) Stage Description eGFR(ml/min/1.73 sq.m.) CKD 1 Normal kidney function or >=90 normal kindney function with possible kidney damage (ex. Proteinuria) CKD 2 Kidney damage with mild loss 60-89 of kidney function CKD 3a Mild to moderate loss of kidney 45-59 function CKD 3b Moderate to severe loss of 30-44 of kindey function CKD 4 Severe loss of kidney function 15-29 CKD 5 Kidney failure <15 Note: (go live 2024) the eGFR calculation was updated to the 2020 CKD-EPI creatinine equation without a race factor to calculate the eGFR results. Performed By: #### A PATRICIA, ADIFF, ABOGEL, ABSGEL, BMP, CBC, GFR, ALB #### [address] [address] .NEUABSon 07-07-2024 Neutrophil, Absolute 3.7 10 3/mcL Normal 2.3-8.1 [facility] Comment on above: Performed By: #### A PATRICIA, ADIFF, ABOGEL, ABSGEL, BMP, CBC, GFR, ALB #### [address] [address] ABO/Rh (Gel)on 07-07-2024 ABO/Rh Interp Positive Invalid Interpretation Code [facility] Comment on above: Performed By: #### A PATRICIA, ADIFF, ABOGEL, ABSGEL, BMP, CBC, GFR, ALB #### [address] [address] ABS (Gel)on 07-07-2024 ABSC Interp (Gel) Negative Normal [facility] Comment on above: Performed By: #### A PATRICIA, ADIFF, ABOGEL, ABSGEL, BMP, CBC, GFR, ALB #### [address] [address] ALBon 07-07-2024 Albumin Level 3.2 G/dL Low 3.4-4.8 [facility] Comment on above: Performed By: #### A PATRICIA, ADIFF, ABOGEL, ABSGEL, BMP, CBC, GFR, ALB #### [address] [address] BMPon 07-07-2024 BUN/Creatinine Ratio 16 ratio Normal 7-27 [facility] Comment on above: Performed By: #### A PATRICIA, ADIFF, ABOGEL, ABSGEL, BMP, CBC, GFR, ALB #### [address] [address] Calcium [Mass/Vol] 9.2 mg/dL Normal 8.4-10.2 [facility] Comment on above: Performed By: #### A PATRICIA, ADIFF, ABOGEL, ABSGEL, BMP, CBC, GFR, ALB #### [address] [address] Chloride [Moles/Vol] 106 mmol/L Normal 98-107 [facility] Comment on above: Performed By: #### A PATRICIA, ADIFF, ABOGEL, ABSGEL, BMP, CBC, GFR, ALB #### [address] [address] CO2 [Moles/Vol] 28 mmol/L Normal 23-31 [facility] Comment on above: Performed By: #### A PATRICIA, ADIFF, ABOGEL, ABSGEL, BMP, CBC, GFR, ALB #### [address] [address] Creatinine [Mass/Vol] 1.27 mg/dL Normal 0.70-1.30 [facility] Comment on above: Result Comment: Test ing performed on Siemens Dimension EXL analyzer using a modified kinetic Ashley technique. Performed By: #### A PATRICIA, ADIFF, ABOGEL, ABSGEL, BMP, CBC, GFR, ALB #### [address] [address] Electrolyte Balance 7.0 mEq/L Normal 4.0-15.0 [facility] Comment on above: Performed By: #### A PATRICIA, ADIFF, ABOGEL, ABSGEL, BMP, CBC, GFR, ALB #### [address] [address] Glucose [Mass/Vol] 109 mg/dL Normal 83-110 [facility] Comment on above: Performed By: #### A PATRICIA, ADIFF, ABOGEL, ABSGEL, BMP, CBC, GFR, ALB #### [address] [address] Potassium [Moles/Vol] 4.2 mmol/L Normal 3.5-5.1 [facility] Comment on above: Performed By: #### A PATRICIA, ADIFF, ABOGEL, ABSGEL, BMP, CBC, GFR, ALB #### [address] [address] Sodium [Moles/Vol] 141 mmol/L Normal 136-145 [facility] Comment on above: Performed By: #### A PATRICIA, ADIFF, ABOGEL, ABSGEL, BMP, CBC, GFR, ALB #### [address] [address] Urea nitrogen [Mass/Vol] 20 mg/dL High 7-18 [facility] Comment on above: Performed By: #### A PATRICIA, ADIFF, ABOGEL, ABSGEL, BMP, CBC, GFR, ALB #### [address] [address] CBCon 07-07-2024 Erythrocyte distribution width (RBC) [Ratio] 16.2 % High 11.5-15.5 [facility] Comment on above: Order Comment: Pre-A dmission Testing Performed By: #### A PATRICIA, ADIFF, ABOGEL, ABSGEL, BMP, CBC, GFR, ALB #### [address] [address] Hematocrit (Bld) [Volume fraction] 40.2 % Normal 40.0-52.0 [facility] Comment on above: Order Comment: Pre-A dmission Testing Performed By: #### A PATRICIA, ADIFF, ABOGEL, ABSGEL, BMP, CBC, GFR, ALB #### [address] [address] Hgb 13.4 G/dL Normal 13.0-17.5 [facility] Comment on above: Order Comment: Pre-A dmission Testing Performed By: #### A PATRICIA, ADIFF, ABOGEL, ABSGEL, BMP, CBC, GFR, ALB #### [address] [address] MCH (RBC) [Entitic mass] 30.9 pg Normal 27.0-33.0 [facility] Comment on above: Order Comment: Pre-A dmission Testing Performed By: #### A PATRICIA, ADIFF, ABOGEL, ABSGEL, BMP, CBC, GFR, ALB #### [address] [address] MCHC 33.3 G/dL Normal 32.0-36.0 [facility] Comment on above: Order Comment: Pre-A dmission Testing Performed By: #### A PATRICIA, ADIFF, ABOGEL, ABSGEL, BMP, CBC, GFR, ALB #### [address] [address] MCV (RBC) [Entitic vol] 92.8 fL Normal 81.0-100.0 [facility] Comment on above: Order Comment: Pre-A dmission Testing Performed By: #### A PATRICIA, ADIFF, ABOGEL, ABSGEL, BMP, CBC, GFR, ALB #### [address] [address] Platelet 293 10 3/mcL Normal 150-450 [facility] Comment on above: Order Comment: Pre-A dmission Testing Performed By: #### A PATRICIA, ADIFF, ABOGEL, ABSGEL, BMP, CBC, GFR, ALB #### [address] [address] Platelet mean volume (Bld) [Entitic vol] 7.9 fL Normal 6.4-10.5 [facility] Comment on above: Order Comment: Pre-A dmission Testing Performed By: #### A PATRICIA, ADIFF, ABOGEL, ABSGEL, BMP, CBC, GFR, ALB #### [address] [place], [place] [address] RBC 4.33 10 6/mcL Low 4.50-6.00 [facility] Comment on above: Order Comment: Pre-A dmission Testing Performed By: #### A PATRICIA, ADIFF, ABOGEL, ABSGEL, BMP, CBC, GFR, ALB #### [address] [place], [place] [address] WBC 5.7 10 3/mcL Normal 4.5-10.8 [facility] Comment on above: Order Comment: Pre-A dmission Testing Performed By: #### A PATRICIA, ADIFF, ABOGEL, ABSGEL, BMP, CBC, GFR, ALB #### [address] [address] LABORATORYOrdered By: Eleanor Hall on 07-07-2024 ABO and Rh group Nom (Bld) Blood group O Rh(D) positive Invalid Interpretation Code AO BB Auto SS Blood group antibody screen Ql Negative ABSC (07/07/24 2:23 PM) Normal AO BB Auto SS LABORATORYOrdered By: SYSTEM SYSTEM on 07-07-2024 Albumin BCP dye [Mass/Vol] 3.2 G/dL Low 3.4 - 4.8 G/dL AO ADM SS Basophils (Bld) [#/Vol] 0.0 103/mcL Normal 0.0 - 0.2 10^3/mcL AO Workflow SS Basophils/100 WBC (Bld) 0.7 % Normal 0.0 - 2.5 % AO Workflow SS Calcium [Mass/Vol] 9.2 mg/dL Normal 8.4 - 10. 2 mg/dL AO ADM SS Chloride [Moles/Vol] 106 mmol/L Normal 98 - 10 7 mmol/L AO ADM SS CO2 [Moles/Vol] 28 mmol/L Normal 23 - 31 mmol/L AO ADM SS Creatinine [Mass/Vol] 1.27 mg/dL Normal 0.70 - 1.30 mg/dL AO ADM SS Comment on above: Interpretive Data: T esting performed on Siemens Dimension EXL analyzer using a modified kinetic Ashley technique. Electrolyte Balance 7.0 mEq/L Normal 4.0 - 15 .0 mEq/L AO ADM SS Eosinophil, Absolute 0.3 103/mcL Normal 0.0 - 0 .7 10^3/mcL AO Workflow SS Eosinophils/100 WBC (Bld) 4.8 % Normal 0.0 - 7.0 % AO Workflow SS Erythrocyte distribution width (RBC) [Ratio] 16.2 % High 11.5 - 15.5 % AO Workflow SS Estimated Glomerular Filtration Rate 57 ml/min/1.73sqm Invalid Interpretation Code AO Chemistry S Comment on above: Interpretive Data: Stages of Chronic Kidney Disease (CKD) Stage Description eGFR(ml/min/1.73 sq.m.) CKD 1 Normal kidney function or >=90 normal kindney function with possible kidney damage (ex. Proteinuria) CKD 2 Kidney damage with mild loss 60-89 of kidney function CKD 3a Mild to moderate loss of kidney 45-59 function CKD 3b Moderate to severe loss of 30-44 of kindey function CKD 4 Severe loss of kidney function 15-29 CKD 5 Kidney failure <15 Note: (go live 2024) the eGFR calculation was updated to the 2020 CKD-EPI creatinine equation without a race factor to calculate the eGFR results. Glucose [Mass/Vol] 109 mg/dL Normal 83 - 110 mg/dL AO ADM SS Hematocrit (Bld) [Volume fraction] 40.2 % Normal 40.0 - 52.0 % AO Workflow SS Hemoglobin (Bld) [Mass/Vol] 13.4 G/dL Normal 13.0 - 17.5 G/dL AO Workflow SS Lymphocytes (Bld) [#/Vol] 1.0 103/mcL Normal 0.9 - 4.3 10^3/mcL AO Workflow SS Lymphocytes/100 WBC (Bld) 18.0 % Low 20.0 - 40.0 % AO Workflow SS MCH (RBC) [Entitic mass] 30.9 pg Normal 27.0 - 33.0 pg AO Workflow SS MCHC 33.3 G/dL Normal 32.0 - 36.0 G/dL AO Workflow SS MCV (RBC) [Entitic vol] 92.8 fL Normal 81.0 - 100.0 fL AO Workflow SS Monocytes (Bld) [#/Vol] 0.7 103/mcL Normal 0.1 - 1.4 10^3/mcL AO Workflow SS Monocytes/100 WBC (Bld) 11.6 % Normal 2.0 - 13.0 % AO Workflow SS Neutrophils (Bld) [#/Vol] 3.7 103/mcL Normal 2.3 - 8.1 10^3/mcL AO Workflow SS Neutrophils/100 WBC (Bld) 64.9 % Normal 50.0 - 75.0 % AO Workflow SS Platelet mean volume (Bld) [Entitic vol] 7.9 fL Normal 6.4 - 10.5 fL AO Workflow SS Platelets (Bld) [#/Vol] 293 103/mcL Normal 150 - 450 10^3/mcL AO Workflow SS Potassium [Moles/Vol] 4.2 mmol/L Normal 3.5 - 5.1 mmol/L AO ADM SS RBC (Bld) [#/Vol] 4.33 106/mcL Low 4.50 - 6.00 10^6/mcL AO Workflow SS Sodium [Moles/Vol] 141 mmol/L Normal 136 - 145 mmol/L AO ADM SS Urea nitrogen [Mass/Vol] 20 mg/dL High 7 - 18 mg/dL AO ADM SS Urea nitrogen/Creatinine [Mass ratio] 16 ratio Normal 7 - 27 ratio AO ADM SS WBC (Bld) [#/Vol] 5.7 103/mcL Normal 4.5 - 10.8 10^3/mcL AO Workflow SS LABORATORYOrdered By: Binh Garcia on 07-07-2024 MRSA (PCR) Not Detected 1 (07/07/24 2:23 PM) Normal Not Detected Auto Viro/Sero SS Comment on above: Result Comment: [place] [id number] MRSA PCR Int MRSA DNA not detecte d by Real-Time Polymerase Chain Reaction (PCR). A negative result may be due to intermittent colonization. Colonization may vary depending on patient treatment, patient status, or exposure to high-risk environments.As with all PCR based in vitro diagnostic tests, extremely low levels of target below the limit of detection of the assay may be detected, but results may not be reproducible. Invalid Interpretation Code Auto Viro/Sero SS MRSAPCRon 07-07-2024 MRSA (PCR) Not detected Normal Not Detected [facility] Comment on above: Result Comment: [place] [id number] Performed By: #### A HARITHA GOMEZ, ABOGEL, ABSGEL, BMP, CBC, GFR, ALB #### [address] [place], [place] [address] MRSA PCR Int Normal [facility] Comment on above: Result Comment: MRSA DNA not detected by Real-Time Polymerase Chain Reaction (PCR). A negative result may be due to intermittent colonization. Colonization may vary depending on patient treatment, patient status, or exposure to high-risk environments. As with all PCR based in vitro diagnostic tests, extremely low levels of target below the limit of detection of the assay may be detected, but results may not be reproducible. See Below Performed By: #### A PATRICIA, ADIFF, ABOGEL, ABSGEL, BMP, CBC, GFR, ALB #### [address] [place], [place] [address] Absolute neutrophil countOrd ered By: Jackie Ballard on 06-13-2024 Neutrophils (Bld) [#/Vol] 2.5 10*3/uL 2.0-7.7 [facility] Basophil percentageOrdered B y: Jackie Ballard on 06-13-2024 Basophils/100 WBC (Bld) 0.9 % 0-1 [facility] CBC W/Diff, Automatedon 06-01 Absolute Lymph 1.13 X10 3/uL Normal 0.83-4.51 [facility] Comment on above: Performed By: #### L 100.0100 ####[facility] [address] [place], [address] Absolute Neut 2.5 X10 3/uL Normal 2.0-7.7 [facility] Comment on above: Performed By: #### L 100.0100 ####[facility] [address] [place], [address] Basophils/100 WBC (Bld) 0.9 % Normal 0-1 [facility] Comment on above: Performed By: #### L 100.0100 ####[facility] [address] [place], [address] Eosinophils/100 WBC (Bld) 2.8 % Normal 0-5 [facility] Comment on above: Performed By: #### L 100.0100 ####[facility] [address] [place], [address] Erythrocyte distribution width (RBC) [Ratio] 16.0 % High 11.6-14.6 [facility] Comment on above: Performed By: #### L 100.0100 ####[facility] [address] [place], [address] Hematocrit (Bld) [Volume fraction] 36.4 % Low 40-54 [facility] Comment on above: Performed By: #### L 100.0100 ####[facility] [address] [place], [address] Hemoglobin (Bld) [Mass/Vol] 11.5 g/dL Low 13.0-16.5 [facility] Comment on above: Performed By: #### L 100.0100 ####[facility] [address] [place], [address] IG% 0.200 Normal 0.0-0.9 [facility] Comment on above: Result Comment: IG% - Immature Granulocytes (promyelocytes, myelocytes andmetamyelocytes) > 1% indicates that a LEFT SHIFT is Present. Performed By: #### L 100.0100 ####[facility] [address] [place], [address] Lymphocytes/100 WBC (Bld) 26.0 % Normal 19-41 [facility] Comment on above: Performed By: #### L 100.0100 ####[facility] [address] [place], [address] MCH (RBC) [Entitic mass] 31.0 pg Normal 27.0-32.0 [facility] Comment on above: Performed By: #### L 100.0100 ####[facility] [address] [place], [address] MCHC (RBC) [Mass/Vol] 31.6 g/dL Low 32-36 [facility] Comment on above: Performed By: #### L 100.0100 ####[facility] [address] [place], [address] MCV (RBC) [Entitic vol] 98.1 fL High 80-94 [facility] Comment on above: Performed By: #### L 100.0100 ####[facility] [address] [place], [address] Monocytes/100 WBC (Bld) 12.0 % High 0-10 [facility] Comment on above: Performed By: #### L 100.0100 ####[facility] [address] [place], [address] Neutrophils/100 WBC (Bld) 58.1 % Normal 47-70 [facility] Comment on above: Performed By: #### L 100.0100 ####[facility] [address] [place], [address] Nucleated RBC (Bld) [#/Vol] 0 10*3/uL Normal 0-5 [facility] Comment on above: Performed By: #### L 100.0100 ####[facility] [address] [place], [address] Platelet mean volume (Bld) [Entitic vol] 9.6 fL Normal 6.2-12.0 [facility] Comment on above: Performed By: #### L 100.0100 ####[facility] [address] [place], [address] Platelets (Bld) [#/Vol] 325 10*3/uL Normal 150-450 [facility] Comment on above: Performed By: #### L 100.0100 ####[facility] [address] [place], [address] RBC (Bld) [#/Vol] 3.71 10*6/uL Low 4.6-6.2 [facility] Comment on above: Performed By: #### L 100.0100 ####[facility] [address] [place], [address] RDW SD 57.6 fl High 35.1-43.9 [facility] Comment on above: Performed By: #### L 100.0100 ####[facility] [address] [place], [address] WBC (Bld) [#/Vol] 4.4 10*3/uL Normal 4.4-11.0 [facility] Comment on above: Performed By: #### L 100.0100 ####[facility] [address] [place], [address] Eosinophil percentageOrdered By: Jackie Ballard on 06-13-2024 Eosinophils/100 WBC (Bld) 2.8 % 0-5 [facility] Erythrocyte distribution wid th ratioOrdered By: Jackie Ballard on 06-13-2024 Erythrocyte distribution width (RBC) [Ratio] 16.0 % High 11.6-14.6 [facility] Erythrocyte distribution wid th standard deviationOrdered By: Jackie Ballard on 06-13-2024 Erythrocyte distribution width (RBC) [Entitic vol] 57.6 fL High 35.1-43.9 [facility] Hematocrit Auto (Bld) [Volum e fraction]Ordered By: Jackie Ballard on 06-13-2024 Hematocrit (Bld) [Volume fraction] 36.4 % Low 40-54 [facility] Hemoglobin measurementOrdere d By: Jackie Ballard on 06-13-2024 Hemoglobin (Bld) [Mass/Vol] 11.5 g/dL Low 13.0-16.5 [facility] Immature granulocytes/100 WB C Auto (Bld)Ordered By: Jackie Ballard on 06-13-2024 Immature granulocytes/100 WBC (Bld) 0.200 % 0.0-0.9 [facility] Comment on above: IG% - Immature Granu locytes (promyelocytes, myelocytes and metamyelocytes) > 1% indicates that a LEFT SHIFT is Present. Lymphocytes Auto (Unsp spec) [#/Vol]Ordered By: Jackie Ballard on 06-13-2024 Lymphocytes (Bld) [#/Vol] 1.13 10*3/uL 0.83-4.51 [facility] Lymphocytes/100 WBC Auto (Un sp spec)Ordered By: Jackie Ballard on 06-13-2024 Lymphocytes/100 WBC (Bld) 26.0 % 19-41 [facility] MCV (mean corpuscular volume ) determinationOrdered By: Jackie Ballard on 06-13-2024 MCV (RBC) [Entitic vol] 98.1 fL High 80-94 [facility] Mean corpuscular hemoglobin (MCH) determinationOrdered By: Jackie Ballard on 06-13-2024 MCH (RBC) [Entitic mass] 31.0 pg 27.0-32.0 [facility] Mean corpuscular hemoglobin concentration (MCHC) determinationOrdered By: Jackie Ballard on 06-13-2024 MCHC (RBC) [Mass/Vol] 31.6 g/dL Low 32-36 [facility] Mean platelet volume determi nationOrdered By: Jackie Ballard on 06-13-2024 Platelet mean volume (Bld) [Entitic vol] 9.6 fL 6.2-12.0 [facility] Monocyte percentageOrdered B y: Jackie Ballard on 06-13-2024 Monocytes/100 WBC (Bld) 12.0 % High 0-10 [facility] Neutrophil percentageOrdered By: Jackie Ballard on 06-13-2024 Neutrophils/100 WBC (Bld) 58.1 % 47-70 [facility] Nucleated red blood cell per centageOrdered By: Jackie Ballard on 06-13-2024 Nucleated RBC/100 WBC (Bld) [Ratio] 0 % 0-5 [facility] Platelet countOrdered By: Maninder Ballard on 06-13-2024 Platelets (Bld) [#/Vol] 325 10*3/uL 150-450 [facility] RBC Auto (Bld) [#/Vol]Ordere d By: Jackie Ballard on 06-13-2024 RBC (Bld) [#/Vol] 3.71 10*6/uL Low 4.6-6.2 [facility] White blood cell (WBC) count Ordered By: Jackie Elio on 06-13-2024 WBC (Bld) [#/Vol] 4.4 10*3/uL 4.4-11.0 [facility] Venous Duplex US, Unilateral on 06-06-2024 Venous Duplex US, Unilateral Normal [facility] Knee 4 or More Viewson 06-03 Knee 4 or More Views Normal [facility] Vitamin B12on 05-19-2024 Cobalamin (Vitamin B12) [Mass/Vol] 271 pg/mL Normal 211-911 [facility] Comment on above: Performed By: #### L 503.6030, L503.6550, L100.0100, L503.0105 ####[facility] [address] [place], [place], [id number] Absolute neutrophil countOrd ered By: Jackie Chairezony on 05-18-2024 Neutrophils (Bld) [#/Vol] 3.1 10*3/uL 2.0-7.7 [facility] Basophil percentageOrdered B y: Jackie Elio on 05-18-2024 Basophils/100 WBC (Bld) 0.8 % 0-1 [facility] CBC W/Diff, Automatedon 05-01 Absolute Lymph 1.27 X10 3/uL Normal 0.83-4.51 [facility] Comment on above: Performed By: #### L 503.6030, L503.6550, L100.0100, L503.0105 ####[facility] [address] [place], [place], [address] Absolute Neut 3.1 X10 3/uL Normal 2.0-7.7 [facility] Comment on above: Performed By: #### L 503.6030, L503.6550, L100.0100, L503.0105 ####[facility] [address] [place], [address] Basophils/100 WBC (Bld) 0.8 % Normal 0-1 [facility] Comment on above: Performed By: #### L 503.6030, L503.6550, L100.0100, L503.0105 ####[facility] [address] [place], [address] Eosinophils/100 WBC (Bld) 3.1 % Normal 0-5 [facility] Comment on above: Performed By: #### L 503.6030, L503.6550, L100.0100, L503.0105 ####[facility] [address] [place], [address] Erythrocyte distribution width (RBC) [Ratio] 13.2 % Normal 11.6-14.6 [facility] Comment on above: Performed By: #### L 503.6030, L503.6550, L100.0100, L503.0105 ####[facility] [address] [place], [address] Hematocrit (Bld) [Volume fraction] 30.7 % Low 40-54 [facility] Comment on above: Performed By: #### L 503.6030, L503.6550, L100.0100, L503.0105 ####[facility] [address] [place], [address] Hemoglobin (Bld) [Mass/Vol] 9.5 g/dL Low 13.0-16.5 [facility] Comment on above: Performed By: #### L 503.6030, L503.6550, L100.0100, L503.0105 ####[facility] [address] [place], [address] IG% 0.600 Normal 0.0-0.9 [facility] Comment on above: Result Comment: IG% - Immature Granulocytes (promyelocytes, myelocytes andmetamyelocytes) > 1% indicates that a LEFT SHIFT is Present. Performed By: #### L 503.6030, L503.6550, L100.0100, L503.0105 ####[facility] [address] [place], [address] Lymphocytes/100 WBC (Bld) 24.2 % Normal 19-41 [facility] Comment on above: Performed By: #### L 503.6030, L503.6550, L100.0100, L503.0105 ####[facility] [address] [place], [address] MCH (RBC) [Entitic mass] 29.9 pg Normal 27.0-32.0 [facility] Comment on above: Performed By: #### L 503.6030, L503.6550, L100.0100, L503.0105 ####[facility] [address] [place], [address] MCHC (RBC) [Mass/Vol] 30.9 g/dL Low 32-36 [facility] Comment on above: Performed By: #### L 503.6030, L503.6550, L100.0100, L503.0105 ####[facility] [address] [place], [address] MCV (RBC) [Entitic vol] 96.5 fL High 80-94 [facility] Comment on above: Performed By: #### L 503.6030, L503.6550, L100.0100, L503.0105 ####[facility] [address] [place], [address] Monocytes/100 WBC (Bld) 12.6 % High 0-10 [facility] Comment on above: Performed By: #### L 503.6030, L503.6550, L100.0100, L503.0105 ####[facility] [address] [place], [address] Neutrophils/100 WBC (Bld) 58.7 % Normal 47-70 [facility] Comment on above: Performed By: #### L 503.6030, L503.6550, L100.0100, L503.0105 ####[facility] [address] [place], [address] Nucleated RBC (Bld) [#/Vol] 0 10*3/uL Normal 0-5 [facility] Comment on above: Performed By: #### L 503.6030, L503.6550, L100.0100, L503.0105 ####[facility] [address] [place], [address] Platelet mean volume (Bld) [Entitic vol] 9.4 fL Normal 6.2-12.0 [facility] Comment on above: Performed By: #### L 503.6030, L503.6550, L100.0100, L503.0105 ####[facility] [address] [place], [address] Platelets (Bld) [#/Vol] 381 10*3/uL Normal 150-450 [facility] Comment on above: Performed By: #### L 503.6030, L503.6550, L100.0100, L503.0105 ####[facility] [address] [place], [address] RBC (Bld) [#/Vol] 3.18 10*6/uL Low 4.6-6.2 [facility] Comment on above: Performed By: #### L 503.6030, L503.6550, L100.0100, L503.0105 ####[facility] [address] [place], [address] RDW SD 46.8 fl High 35.1-43.9 [facility] Comment on above: Performed By: #### L 503.6030, L503.6550, L100.0100, L503.0105 ####[facility] [address] [place], [address] WBC (Bld) [#/Vol] 5.2 10*3/uL Normal 4.4-11.0 [facility] Comment on above: Performed By: #### L 503.6030, L503.6550, L100.0100, L503.0105 ####[facility] [address] [place], [address] Eosinophil percentageOrdered By: Jackie Ballard on 05-18-2024 Eosinophils/100 WBC (Bld) 3.1 % 0-5 [facility] Erythrocyte distribution wid th ratioOrdered By: Jackie Ballard on 05-18-2024 Erythrocyte distribution width (RBC) [Ratio] 13.2 % 11.6-14.6 [facility] Erythrocyte distribution wid th standard deviationOrdered By: Jackie Ballard on 05-18-2024 Erythrocyte distribution width (RBC) [Entitic vol] 46.8 fL High 35.1-43.9 [facility] Ferritinon 05-18-2024 Ferritin [Mass/Vol] 21 ng/mL Low 26-388 [facility] Comment on above: Performed By: #### L 503.6030, L503.6550, L100.0100, L503.0105 ####[facility] [address] [place], [address] Ferritin measurementOrdered By: Jackie Ballard on 05-18-2024 Ferritin [Mass/Vol] 21 ng/mL Low 26-388 [facility] Gastroenterology Visit Repor ton 05-18-2024 Gastroenterology Visit Report Normal [facility] Hematocrit Auto (Bld) [Volum e fraction]Ordered By: Jackie Ballard on 05-18-2024 Hematocrit (Bld) [Volume fraction] 30.7 % Low 40-54 [facility] Hemoglobin measurementOrdere d By: Jackie Ballard on 05-18-2024 Hemoglobin (Bld) [Mass/Vol] 9.5 g/dL Low 13.0-16.5 [facility] Immature granulocytes/100 WB C Auto (Bld)Ordered By: Jackie Ballard on 05-18-2024 Immature granulocytes/100 WBC (Bld) 0.600 % 0.0-0.9 [facility] Comment on above: IG% - Immature Granu locytes (promyelocytes, myelocytes and metamyelocytes) > 1% indicates that a LEFT SHIFT is Present. Iron (Unsp spec) [Mass/Mass] Ordered By: Jackie Ballard on 05-18-2024 Iron [Mass/Vol] 24 ug/dL Low 65-175 [facility] Iron saturation [Mass fracti on]Ordered By: Jackie Ballard on 05-18-2024 Iron Saturation 8.3 % Low 15.0-55.0 [facility] Iron+Iron Binding Capacityon 05-18-2024 Iron [Mass/Vol] 24 ug/dL Low 65-175 [facility] Comment on above: Performed By: #### L [id number], L503.6550, L100.0100, L503.0105 ####[facility] [address] [place], [address] IRON SATURATION 8.3 Low 15.0-55.0 [facility] Comment on above: Performed By: #### L 503.6030, L503.6550, L100.0100, L503.0105 ####[facility] [address] [place], [address] TIBC 289 ug/dL Normal 250-450 [facility] Comment on above: Performed By: #### L 503.6030, L503.6550, L100.0100, L503.0105 ####[facility] [address] [place], [address] Lymphocytes Auto (Unsp spec) [#/Vol]Ordered By: Jackie Ballard on 05-18-2024 Lymphocytes (Bld) [#/Vol] 1.27 10*3/uL 0.83-4.51 [facility] Lymphocytes/100 WBC Auto (Un sp spec)Ordered By: Jackie Ballard on 05-18-2024 Lymphocytes/100 WBC (Bld) 24.2 % 19-41 [facility] MCV (mean corpuscular volume ) determinationOrdered By: Jackie Ballard on 05-18-2024 MCV (RBC) [Entitic vol] 96.5 fL High 80-94 [facility] Mean corpuscular hemoglobin (MCH) determinationOrdered By: Jackie Ballard on 05-18-2024 MCH (RBC) [Entitic mass] 29.9 pg 27.0-32.0 [facility] Mean corpuscular hemoglobin concentration (MCHC) determinationOrdered By: Jackie Ballard on 05-18-2024 MCHC (RBC) [Mass/Vol] 30.9 g/dL Low 32-36 [facility] Mean platelet volume determi nationOrdered By: Jackie Ballard on 05-18-2024 Platelet mean volume (Bld) [Entitic vol] 9.4 fL 6.2-12.0 [facility] Monocyte percentageOrdered B y: Jackie Ballard on 05-18-2024 Monocytes/100 WBC (Bld) 12.6 % High 0-10 [facility] Neutrophil percentageOrdered By: Jackie Ballard on 05-18-2024 Neutrophils/100 WBC (Bld) 58.7 % 47-70 [facility] Nucleated red blood cell per centageOrdered By: Jackie Ballard on 05-18-2024 Nucleated RBC/100 WBC (Bld) [Ratio] 0 % 0-5 [facility] Platelet countOrdered By: Maninder Ballard on 05-18-2024 Platelets (Bld) [#/Vol] 381 10*3/uL 150-450 [facility] RBC Auto (Bld) [#/Vol]Ordere d By: Jackie Ballard on 05-18-2024 RBC (Bld) [#/Vol] 3.18 10*6/uL Low 4.6-6.2 [facility] TIBCOrdered By: Jackie conde on 05-18-2024 Total Iron Binding Capacity 289 ug/dL 250-450 [facility] Vitamin B12 measurementOrder ed By: Jackie Ballard on 05-18-2024 Cobalamin (Vitamin B12) [Mass/Vol] 271 pg/mL 211-911 [facility] White blood cell (WBC) count Ordered By: Jackie Ballard on 05-18-2024 WBC (Bld) [#/Vol] 5.2 10*3/uL 4.4-11.0 [facility] Absolute neutrophil countOrd ered By: Juan Rodriguez on 05-10-2024 Neutrophils (Bld) [#/Vol] 4.4 10*3/uL 2.0-7.7 [facility] Basophil percentageOrdered B y: Juan Rodriguez on 05-10-2024 Basophils/100 WBC (Bld) 0.6 % 0-1 [facility] CBC W/Diff, Automatedon 05-01-2023 Absolute Lymph 1.32 X10 3/uL Normal 0.83-4.51 [facility] Comment on above: Performed By: #### L 100.0100 ####[facility] [address] [place], [address] Absolute Neut 4.4 X10 3/uL Normal 2.0-7.7 [facility] Comment on above: Performed By: #### L 100.0100 ####[facility] [address] [place], [address] Basophils/100 WBC (Bld) 0.6 % Normal 0-1 [facility] Comment on above: Performed By: #### L 100.0100 ####[facility] [address] [place], [address] Eosinophils/100 WBC (Bld) 1.8 % Normal 0-5 [facility] Comment on above: Performed By: #### L 100.0100 ####[facility] [address] [place], [address] Erythrocyte distribution width (RBC) [Ratio] 13.6 % Normal 11.6-14.6 [facility] Comment on above: Performed By: #### L 100.0100 ####[facility] [address] [place], [address] Hematocrit (Bld) [Volume fraction] 27.9 % Low 40-54 [facility] Comment on above: Performed By: #### L 100.0100 ####[facility] [address] [place], [address] Hemoglobin (Bld) [Mass/Vol] 8.5 g/dL Low 13.0-16.5 [facility] Comment on above: Performed By: #### L 100.0100 ####[facility] [address] [place], [address] IG% 0.500 Normal 0.0-0.9 [facility] Comment on above: Result Comment: IG% - Immature Granulocytes (promyelocytes, myelocytes andmetamyelocytes) > 1% indicates that a LEFT SHIFT is Present. Performed By: #### L 100.0100 ####[facility] [address] [place], [address] Lymphocytes/100 WBC (Bld) 20.2 % Normal 19-41 [facility] Comment on above: Performed By: #### L 100.0100 ####[facility] [address] [place], [address] MCH (RBC) [Entitic mass] 30.1 pg Normal 27.0-32.0 [facility] Comment on above: Performed By: #### L 100.0100 ####[facility] [address] [place], [address] MCHC (RBC) [Mass/Vol] 30.5 g/dL Low 32-36 [facility] Comment on above: Performed By: #### L 100.0100 ####[facility] [address] [place], [address] MCV (RBC) [Entitic vol] 98.9 fL High 80-94 [facility] Comment on above: Performed By: #### L 100.0100 ####[facility] [address] [place], [address] Monocytes/100 WBC (Bld) 9.8 % Normal 0-10 [facility] Comment on above: Performed By: #### L 100.0100 ####[facility] [address] [place], [address] Neutrophils/100 WBC (Bld) 67.1 % Normal 47-70 [facility] Comment on above: Performed By: #### L 100.0100 ####[facility] [address] [place], [address] Nucleated RBC (Bld) [#/Vol] 0 10*3/uL Normal 0-5 [facility] Comment on above: Performed By: #### L 100.0100 ####[facility] [address] [place], [address] Platelet mean volume (Bld) [Entitic vol] 9.5 fL Normal 6.2-12.0 [facility] Comment on above: Performed By: #### L 100.0100 ####[facility] [address] [place], [address] Platelets (Bld) [#/Vol] 432 10*3/uL Normal 150-450 [facility] Comment on above: Performed By: #### L 100.0100 ####[facility] [address] [place], [address] RBC (Bld) [#/Vol] 2.82 10*6/uL Low 4.6-6.2 [facility] Comment on above: Performed By: #### L 100.0100 ####[facility] [address] [place], [address] RDW SD 49.1 fl High 35.1-43.9 [facility] Comment on above: Performed By: #### L 100.0100 ####[facility] [address] [place], [address] WBC (Bld) [#/Vol] 6.5 10*3/uL Normal 4.4-11.0 [facility] Comment on above: Performed By: #### L 100.0100 ####[facility] [address] [place], [address] Eosinophil percentageOrdered By: Juansammy Rodriguez on 05-10-2024 Eosinophils/100 WBC (Bld) 1.8 % 0-5 [facility] Erythrocyte distribution wid th ratioOrdered By: [facility] on 05-10-2024 Erythrocyte distribution width (RBC) [Ratio] 13.6 % 11.6-14.6 [facility] Erythrocyte distribution wid th standard deviationOrdered By: [facility] on 05-10-2024 Erythrocyte distribution width (RBC) [Entitic vol] 49.1 fL High 35.1-43.9 [facility] Hematocrit Auto (Bld) [Volum e fraction]Ordered By: Juan Negro on 05-10-2024 Hematocrit (Bld) [Volume fraction] 27.9 % Low 40-54 [facility] Hemoglobin measurementOrdere d By: [facility] on 05-10-2024 Hemoglobin (Bld) [Mass/Vol] 8.5 g/dL Low 13.0-16.5 [facility] Immature granulocytes/100 WB C Auto (Bld)Ordered By: Juansammy Rodriguez on 05-10-2024 Immature granulocytes/100 WBC (Bld) 0.500 % 0.0-0.9 [facility] Comment on above: IG% - Immature Granu locytes (promyelocytes, myelocytes and metamyelocytes) > 1% indicates that a LEFT SHIFT is Present. Lymphocytes Auto (Unsp spec) [#/Vol]Ordered By: Juansammy Rodriguez on 05-10-2024 Lymphocytes (Bld) [#/Vol] 1.32 10*3/uL 0.83-4.51 [facility] Lymphocytes/100 WBC Auto (Un sp spec)Ordered By: Juan Rodriguez on 05-10-2024 Lymphocytes/100 WBC (Bld) 20.2 % 19-41 [facility] MCV (mean corpuscular volume ) determinationOrdered By: Juan Rodriguez on 05-10-2024 MCV (RBC) [Entitic vol] 98.9 fL High 80-94 [facility] Mean corpuscular hemoglobin (MCH) determinationOrdered By: Juan Rodriguez on 05-10-2024 MCH (RBC) [Entitic mass] 30.1 pg 27.0-32.0 [facility] Mean corpuscular hemoglobin concentration (MCHC) determinationOrdered By: Juan Rodriguez on 05-10-2024 MCHC (RBC) [Mass/Vol] 30.5 g/dL Low 32-36 [facility] Mean platelet volume determi nationOrdered By: Juan Rodriguez on 05-10-2024 Platelet mean volume (Bld) [Entitic vol] 9.5 fL 6.2-12.0 [facility] Monocyte percentageOrdered B y: Juan Rodriguez on 05-10-2024 Monocytes/100 WBC (Bld) 9.8 % 0-10 [facility] Neutrophil percentageOrdered By: Juan Rodriguez on 05-10-2024 Neutrophils/100 WBC (Bld) 67.1 % 47-70 [facility] Nucleated red blood cell per centageOrdered By: Juan Rodriguez on 05-10-2024 Nucleated RBC/100 WBC (Bld) [Ratio] 0 % 0-5 [facility] Platelet countOrdered By: Ra nicola Rodriguez on 05-10-2024 Platelets (Bld) [#/Vol] 432 10*3/uL 150-450 [facility] RBC Auto (Bld) [#/Vol]Ordere d By: Juan Rodriguez on 05-10-2024 RBC (Bld) [#/Vol] 2.82 10*6/uL Low 4.6-6.2 [facility] White blood cell (WBC) count Ordered By: Juan Rodriguez on 05-10-2024 WBC (Bld) [#/Vol] 6.5 10*3/uL 4.4-11.0 [facility] Basic Metabolic Profile (BMP )on 05-02-2024 BUN Normal 7-18 [facility] Comment on above: Result Comment: Canc elled via OM: Order cancelled - Patient discharged Performed By: #### L 100.0100, L500.2500 ####[facility] [address] [place], [address] BUN/CRE Normal 10-20 [facility] Comment on above: Result Comment: Canc elled via OM: Order cancelled - Patient discharged Performed By: #### L 100.0100, L500.2500 ####[facility] [address] [place], [address] CA,Total Normal 8.5-10.1 [facility] Comment on above: Result Comment: Canc elled via OM: Order cancelled - Patient discharged Performed By: #### L 100.0100, L500.2500 ####[facility] [address] [place], [address] CL Normal 98-107 [facility] Comment on above: Result Comment: Canc elled via OM: Order cancelled - Patient discharged Performed By: #### L 100.0100, L500.2500 ####[facility] [address] [place], [address] CO2 Normal 21.0-32.0 [facility] Comment on above: Result Comment: Canc elled via OM: Order cancelled - Patient discharged Performed By: #### L 100.0100, L500.2500 ####[facility] [address] [place], [address] CREAT,SERUM Normal 0.70-1.30 [facility] Comment on above: Result Comment: Canc elled via OM: Order cancelled - Patient discharged Performed By: #### L 100.0100, L500.2500 ####[facility] [address] [place], [address] EST GFR Normal >60 [facility] Comment on above: Result Comment: Canc elled via OM: Order cancelled - Patient discharged Performed By: #### L 100.0100, L500.2500 ####[facility] [address] [place], [address] EST GFR - AA Normal >60 [facility] Comment on above: Result Comment: Canc elled via OM: Order cancelled - Patient discharged Performed By: #### L 100.0100, L500.2500 ####[facility] [address] [place], [address] GAP Normal 5-15 [facility] Comment on above: Result Comment: Canc elled via OM: Order cancelled - Patient discharged Performed By: #### L 100.0100, L500.2500 ####[facility] [address] [place], [address] GLU Normal 74-106 [facility] Comment on above: Result Comment: Canc elled via OM: Order cancelled - Patient discharged Performed By: #### L 100.0100, L500.2500 ####[facility] [address] [place], [address] Potassium Normal 3.5-5.1 [facility] Comment on above: Result Comment: Canc elled via OM: Order cancelled - Patient discharged Performed By: #### L 100.0100, L500.2500 ####[facility] [address] [place], [address] Basic Metabolic Profile (BMP) Normal 136-145 [facility] Comment on above: Result Comment: Canc elled via OM: Order cancelled - Patient discharged Performed By: #### L 100.0100, L500.2500 ####[facility] [address] [place], [address] CBC W/Diff, Automatedon 12-0 Absolute Neut Normal 2.0-7.7 [facility] Comment on above: Result Comment: Canc elled via OM: Order cancelled - Patient discharged Performed By: #### L 100.0100, L500.2500 ####[facility] [address] [place], [address] HCT Normal 40-54 [facility] Comment on above: Result Comment: Canc elled via OM: Order cancelled - Patient discharged Performed By: #### L 100.0100, L500.2500 ####[facility] [address] [place], [address] HGB Normal 13.0-16.5 [facility] Comment on above: Result Comment: Canc elled via OM: Order cancelled - Patient discharged Performed By: #### L 100.0100, L500.2500 ####[facility] [address] [place], [address] MCH Normal 27.0-32.0 [facility] Comment on above: Result Comment: Canc elled via OM: Order cancelled - Patient discharged Performed By: #### L 100.0100, L500.2500 ####[facility] [address] [place], [address] MCHC Normal 32-36 [facility] Comment on above: Result Comment: Canc elled via OM: Order cancelled - Patient discharged Performed By: #### L 100.0100, L500.2500 ####[facility] [address] [place], [address] MCV Normal 80-94 [facility] Comment on above: Result Comment: Canc elled via OM: Order cancelled - Patient discharged Performed By: #### L 100.0100, L500.2500 ####[facility] [address] [place], [address] NEUT% Normal 47-70 [facility] Comment on above: Result Comment: Canc elled via OM: Order cancelled - Patient discharged Performed By: #### L 100.0100, L500.2500 ####[facility] [address] [place], [address] PLT Normal 150-450 [facility] Comment on above: Result Comment: Canc elled via OM: Order cancelled - Patient discharged Performed By: #### L 100.0100, L500.2500 ####[facility] [address] [place], [address] RBC Normal 4.6-6.2 [facility] Comment on above: Result Comment: Canc elled via OM: Order cancelled - Patient discharged Performed By: #### L 100.0100, L500.2500 ####[facility] [address] [place], [address] RDW CV Normal 11.6-14.6 [facility] Comment on above: Result Comment: Canc elled via OM: Order cancelled - Patient discharged Performed By: #### L 100.0100, L500.2500 ####[facility] [address] [place], [address] RDW SD Normal 35.1-43.9 [facility] Comment on above: Result Comment: Canc elled via OM: Order cancelled - Patient discharged Performed By: #### L 100.0100, L500.2500 ####[facility] [address] [place], [address] WBC Normal 4.4-11.0 [facility] Comment on above: Result Comment: Canc elled via OM: Order cancelled - Patient discharged Performed By: #### L 100.0100, L500.2500 ####[facility] [address] [place], [address] Basic Metabolic Profile (BMP )on 05-01-2024 BUN Normal 7-18 [facility] Comment on above: Result Comment: Canc elled via OM: Order cancelled - Patient discharged Performed By: #### L 100.0100, L500.2500 ####[facility] [address] [place], [address] BUN/CRE Normal 10-20 [facility] Comment on above: Result Comment: Canc elled via OM: Order cancelled - Patient discharged Performed By: #### L 100.0100, L500.2500 ####[facility] [address] [place], [address] CA,Total Normal 8.5-10.1 [facility] Comment on above: Result Comment: Canc elled via OM: Order cancelled - Patient discharged Performed By: #### L 100.0100, L500.2500 ####[facility] [address] [place], [address] CL Normal 98-107 [facility] Comment on above: Result Comment: Canc elled via OM: Order cancelled - Patient discharged Performed By: #### L 100.0100, L500.2500 ####[facility] [address] [place], [address] CO2 Normal 21.0-32.0 [facility] Comment on above: Result Comment: Canc elled via OM: Order cancelled - Patient discharged Performed By: #### L 100.0100, L500.2500 ####[facility] [address] [place], [address] CREAT,SERUM Normal 0.70-1.30 [facility] Comment on above: Result Comment: Canc elled via OM: Order cancelled - Patient discharged Performed By: #### L 100.0100, L500.2500 ####[facility] [address] [place], [address] EST GFR Normal >60 [facility] Comment on above: Result Comment: Canc elled via OM: Order cancelled - Patient discharged Performed By: #### L 100.0100, L500.2500 ####[facility] [address] [facility] [place], [address] EST GFR - AA Normal >60 [facility] Comment on above: Result Comment: Canc elled via OM: Order cancelled - Patient discharged Performed By: #### L 100.0100, L500.2500 ####[facility] [address] [place], [address] GAP Normal 5-15 [facility] Comment on above: Result Comment: Canc elled via OM: Order cancelled - Patient discharged Performed By: #### L 100.0100, L500.2500 ####[facility] [address] [place], [address] GLU Normal 74-106 [facility] Comment on above: Result Comment: Canc elled via OM: Order cancelled - Patient discharged Performed By: #### L 100.0100, L500.2500 ####[facility] [address] [place], [address] Potassium Normal 3.5-5.1 [facility] Comment on above: Result Comment: Canc elled via OM: Order cancelled - Patient discharged Performed By: #### L 100.0100, L500.2500 ####[facility] [address] [place], [address] Basic Metabolic Profile (BMP) Normal 136-145 [facility] Comment on above: Result Comment: Canc elled via OM: Order cancelled - Patient discharged Performed By: #### L 100.0100, L500.2500 ####[facility] [address] [place], [address] CBC W/Diff, Automatedon 12-0 Absolute Neut Normal 2.0-7.7 [facility] Comment on above: Result Comment: Canc elled via OM: Order cancelled - Patient discharged Performed By: #### L 100.0100, L500.2500 ####[facility] [address] [place], [address] HCT Normal 40-54 [facility] Comment on above: Result Comment: Canc elled via OM: Order cancelled - Patient discharged Performed By: #### L 100.0100, L500.2500 ####[facility] [address] [place], [address] HGB Normal 13.0-16.5 [facility] Comment on above: Result Comment: Canc elled via OM: Order cancelled - Patient discharged Performed By: #### L 100.0100, L500.2500 ####[facility] [address] [place], [address] MCH Normal 27.0-32.0 [facility] Comment on above: Result Comment: Canc elled via OM: Order cancelled - Patient discharged Performed By: #### L 100.0100, L500.2500 ####[facility] [address] [place], [address] MCHC Normal 32-36 [facility] Comment on above: Result Comment: Canc elled via OM: Order cancelled - Patient discharged Performed By: #### L 100.0100, L500.2500 ####[facility] [address] [place], [address] MCV Normal 80-94 [facility] Comment on above: Result Comment: Canc elled via OM: Order cancelled - Patient discharged Performed By: #### L 100.0100, L500.2500 ####[facility] [address] [place], [address] NEUT% Normal 47-70 [facility] Comment on above: Result Comment: Canc elled via OM: Order cancelled - Patient discharged Performed By: #### L 100.0100, L500.2500 ####[facility] [address] [place], [address] PLT Normal 150-450 [facility] Comment on above: Result Comment: Canc elled via OM: Order cancelled - Patient discharged Performed By: #### L 100.0100, L500.2500 ####[facility] [address] [place], [address] RBC Normal 4.6-6.2 [facility] Comment on above: Result Comment: Canc elled via OM: Order cancelled - Patient discharged Performed By: #### L 100.0100, L500.2500 ####[facility] [address] [place], [address] RDW CV Normal 11.6-14.6 [facility] Comment on above: Result Comment: Canc elled via OM: Order cancelled - Patient discharged Performed By: #### L 100.0100, L500.2500 ####[facility] [address] [place], [address] RDW SD Normal 35.1-43.9 [facility] Comment on above: Result Comment: Canc elled via OM: Order cancelled - Patient discharged Performed By: #### L 100.0100, L500.2500 ####[facility] [address] [place], [address] WBC Normal 4.4-11.0 [facility] Comment on above: Result Comment: Canc elled via OM: Order cancelled - Patient discharged Performed By: #### L 100.0100, L500.2500 ####[facility] [address] [place], [address] Basic Metabolic Profile (BMP )on 04-30-2024 BUN Normal 7-18 [facility] Comment on above: Result Comment: Canc elled via OM: Order cancelled - Patient discharged Performed By: #### L 500.2500, L100.0100 ####[facility] [address] [place], [address] BUN/CRE Normal 10-20 [facility] Comment on above: Result Comment: Canc elled via OM: Order cancelled - Patient discharged Performed By: #### L 500.2500, L100.0100 ####[facility] [address] [place], [address] CA,Total Normal 8.5-10.1 [facility] Comment on above: Result Comment: Canc elled via OM: Order cancelled - Patient discharged Performed By: #### L 500.2500, L100.0100 ####[facility] [address] [place], [address] CL Normal 98-107 [facility] Comment on above: Result Comment: Canc elled via OM: Order cancelled - Patient discharged Performed By: #### L 500.2500, L100.0100 ####[facility] [address] [place], [address] CO2 Normal 21.0-32.0 [facility] Comment on above: Result Comment: Canc elled via OM: Order cancelled - Patient discharged Performed By: #### L 500.2500, L100.0100 ####[facility] [address] [place], [address] CREAT,SERUM Normal 0.70-1.30 [facility] Comment on above: Result Comment: Canc elled via OM: Order cancelled - Patient discharged Performed By: #### L 500.2500, L100.0100 ####[facility] [address] [place], [address] EST GFR Normal >60 [facility] Comment on above: Result Comment: Canc elled via OM: Order cancelled - Patient discharged Performed By: #### L 500.2500, L100.0100 ####[facility] [address] [place], [address] EST GFR - AA Normal >60 [facility] Comment on above: Result Comment: Canc elled via OM: Order cancelled - Patient discharged Performed By: #### L 500.2500, L100.0100 ####[facility] [address] [place], [address] GAP Normal 5-15 [facility] Comment on above: Result Comment: Canc elled via OM: Order cancelled - Patient discharged Performed By: #### L 500.2500, L100.0100 ####[facility] [address] [place], [address] GLU Normal 74-106 [facility] Comment on above: Result Comment: Canc elled via OM: Order cancelled - Patient discharged Performed By: #### L 500.2500, L100.0100 ####[facility] [address] [place], [address] Potassium Normal 3.5-5.1 [facility] Comment on above: Result Comment: Canc elled via OM: Order cancelled - Patient discharged Performed By: #### L 500.2500, L100.0100 ####[facility] [address] [place], [address] Basic Metabolic Profile (BMP) Normal 136-145 [facility] Comment on above: Result Comment: Canc elled via OM: Order cancelled - Patient discharged Performed By: #### L 500.2500, L100.0100 ####[facility] [address] [place], [address] CBC W/Diff, Automatedon 11-3 0-2023 Absolute Neut Normal 2.0-7.7 [facility] Comment on above: Result Comment: Canc elled via OM: Order cancelled - Patient discharged Performed By: #### L 500.2500, L100.0100 ####[facility] [address] [place], [address] HCT Normal 40-54 [facility] Comment on above: Result Comment: Canc elled via OM: Order cancelled - Patient discharged Performed By: #### L 500.2500, L100.0100 ####[facility] [address] [place], [address] HGB Normal 13.0-16.5 [facility] Comment on above: Result Comment: Canc elled via OM: Order cancelled - Patient discharged Performed By: #### L 500.2500, L100.0100 ####[facility] [address] [place], [address] MCH Normal 27.0-32.0 [facility] Comment on above: Result Comment: Canc elled via OM: Order cancelled - Patient discharged Performed By: #### L 500.2500, L100.0100 ####[facility] [address] [place], [address] MCHC Normal 32-36 [facility] Comment on above: Result Comment: Canc elled via OM: Order cancelled - Patient discharged Performed By: #### L 500.2500, L100.0100 ####[facility] [address] [place], [address] MCV Normal 80-94 [facility] Comment on above: Result Comment: Canc elled via OM: Order cancelled - Patient discharged Performed By: #### L 500.2500, L100.0100 ####[facility] [address] [place], [address] NEUT% Normal 47-70 [facility] Comment on above: Result Comment: Canc elled via OM: Order cancelled - Patient discharged Performed By: #### L 500.2500, L100.0100 ####[facility] [address] [place], [address] PLT Normal 150-450 [facility] Comment on above: Result Comment: Canc elled via OM: Order cancelled - Patient discharged Performed By: #### L 500.2500, L100.0100 ####[facility] [address] [place], [address] RBC Normal 4.6-6.2 [facility] Comment on above: Result Comment: Canc elled via OM: Order cancelled - Patient discharged Performed By: #### L 500.2500, L100.0100 ####[facility] [address] [place], [address] RDW CV Normal 11.6-14.6 [facility] Comment on above: Result Comment: Canc elled via OM: Order cancelled - Patient discharged Performed By: #### L 500.2500, L100.0100 ####[facility] [address] [place], [address] RDW SD Normal 35.1-43.9 [facility] Comment on above: Result Comment: Canc elled via OM: Order cancelled - Patient discharged Performed By: #### L 500.2500, L100.0100 ####[facility] [address] [place], [address] WBC Normal 4.4-11.0 [facility] Comment on above: Result Comment: Canc elled via OM: Order cancelled - Patient discharged Performed By: #### L 500.2500, L100.0100 ####[facility] [address] [place], [address] Basic Metabolic Profile (BMP )on 04-29-2024 BUN Normal 7-18 [facility] Comment on above: Result Comment: Canc elled via OM: Order cancelled - Patient discharged Performed By: #### L 100.0100, L500.2500 ####[facility] [address] [place], [address] BUN/CRE Normal 10-20 [facility] Comment on above: Result Comment: Canc elled via OM: Order cancelled - Patient discharged Performed By: #### L 100.0100, L500.2500 ####[facility] [address] [place], [address] CA,Total Normal 8.5-10.1 [facility] Comment on above: Result Comment: Canc elled via OM: Order cancelled - Patient discharged Performed By: #### L 100.0100, L500.2500 ####[facility] [address] [place], [address] CL Normal 98-107 [facility] Comment on above: Result Comment: Canc elled via OM: Order cancelled - Patient discharged Performed By: #### L 100.0100, L500.2500 ####[facility] [address] [place], [address] CO2 Normal 21.0-32.0 [facility] Comment on above: Result Comment: Canc elled via OM: Order cancelled - Patient discharged Performed By: #### L 100.0100, L500.2500 ####[facility] [address] [place], [address] CREAT,SERUM Normal 0.70-1.30 [facility] Comment on above: Result Comment: Canc elled via OM: Order cancelled - Patient discharged Performed By: #### L 100.0100, L500.2500 ####[facility] [address] [place], [address] EST GFR Normal >60 [facility] Comment on above: Result Comment: Canc elled via OM: Order cancelled - Patient discharged Performed By: #### L 100.0100, L500.2500 ####[facility] [address] [place], [address] EST GFR - AA Normal >60 [facility] Comment on above: Result Comment: Canc elled via OM: Order cancelled - Patient discharged Performed By: #### L 100.0100, L500.2500 ####[facility] [address] [place], [address] GAP Normal 5-15 [facility] Comment on above: Result Comment: Canc elled via OM: Order cancelled - Patient discharged Performed By: #### L 100.0100, L500.2500 ####[facility] [address] [place], [address] GLU Normal 74-106 [facility] Comment on above: Result Comment: Canc elled via OM: Order cancelled - Patient discharged Performed By: #### L 100.0100, L500.2500 ####[facility] [address] [place], [address] Potassium Normal 3.5-5.1 [facility] Comment on above: Result Comment: Canc elled via OM: Order cancelled - Patient discharged Performed By: #### L 100.0100, L500.2500 ####[facility] [address] [place], [address] Basic Metabolic Profile (BMP) Normal 136-145 [facility] Comment on above: Result Comment: Canc elled via OM: Order cancelled - Patient discharged Performed By: #### L 100.0100, L500.2500 ####[facility] [address] [place], [address] CBC W/Diff, Automatedon 11-2 Absolute Neut Normal 2.0-7.7 [facility] Comment on above: Result Comment: Canc elled via OM: Order cancelled - Patient discharged Performed By: #### L 100.0100, L500.2500 ####[facility] [address] [place], [address] HCT Normal 40-54 [facility] Comment on above: Result Comment: Canc elled via OM: Order cancelled - Patient discharged Performed By: #### L 100.0100, L500.2500 ####[facility] [address] [place], [address] HGB Normal 13.0-16.5 [facility] Comment on above: Result Comment: Canc elled via OM: Order cancelled - Patient discharged Performed By: #### L 100.0100, L500.2500 ####[facility] [address] [place], [address] MCH Normal 27.0-32.0 [facility] Comment on above: Result Comment: Canc elled via OM: Order cancelled - Patient discharged Performed By: #### L 100.0100, L500.2500 ####[facility] [address] [place], [address] MCHC Normal 32-36 [facility] Comment on above: Result Comment: Canc elled via OM: Order cancelled - Patient discharged Performed By: #### L 100.0100, L500.2500 ####[facility] [address] [place], [address] MCV Normal 80-94 [facility] Comment on above: Result Comment: Canc elled via OM: Order cancelled - Patient discharged Performed By: #### L 100.0100, L500.2500 ####[facility] [address] [place], [address] NEUT% Normal 47-70 [facility] Comment on above: Result Comment: Canc elled via OM: Order cancelled - Patient discharged Performed By: #### L 100.0100, L500.2500 ####[facility] [address] [place], [address] PLT Normal 150-450 [facility] Comment on above: Result Comment: Canc elled via OM: Order cancelled - Patient discharged Performed By: #### L 100.0100, L500.2500 ####[facility] [address] [place], [address] RBC Normal 4.6-6.2 [facility] Comment on above: Result Comment: Canc elled via OM: Order cancelled - Patient discharged Performed By: #### L 100.0100, L500.2500 ####[facility] [address] [place], [address] RDW CV Normal 11.6-14.6 [facility] Comment on above: Result Comment: Canc elled via OM: Order cancelled - Patient discharged Performed By: #### L 100.0100, L500.2500 ####[facility] [address] [place], [address] RDW SD Normal 35.1-43.9 [facility] Comment on above: Result Comment: Canc elled via OM: Order cancelled - Patient discharged Performed By: #### L 100.0100, L500.2500 ####[facility] [address] [place], [address] WBC Normal 4.4-11.0 [facility] Comment on above: Result Comment: Canc elled via OM: Order cancelled - Patient discharged Performed By: #### L 100.0100, L500.2500 ####[facility] [address] [place], [address] Absolute neutrophil countOrd ered By: Joanna Sol on 04-28-2024 Neutrophils (Bld) [#/Vol] 6.0 10*3/uL 2.0-7.7 [facility] Basic Metabolic Profile (BMP )on 04-28-2024 BUN/CRE 22.5 RATIO High 10-20 [facility] Comment on above: Performed By: #### L 500.2500, L100.0100 ####[facility] [address] [place], [address] CA,Total 8.2 mg/dL Low 8.5-10.1 [facility] Comment on above: Performed By: #### L 500.2500, L100.0100 ####[facility] [address] [place], [address] Chloride [Moles/Vol] 115 mmol/L High 98-107 [facility] Comment on above: Performed By: #### L 500.2500, L100.0100 ####[facility] [address] [place], [address] CO2 [Moles/Vol] 23.0 mmol/L Normal 21.0-32.0 [facility] Comment on above: Performed By: #### L 500.2500, L100.0100 ####[facility] [address] [place], [address] Creatinine [Mass/Vol] 1.02 mg/dL Normal 0.70-1.30 [facility] Comment on above: Result Comment: The validity of the calculated GFR GFRAA in patients over70 years has not been determined. Clinical correlation isessential. Performed By: #### L 500.2500, L100.0100 ####[facility] [address] [place], [address] ECRCL 57.52 ml/min Normal [facility] Comment on above: Performed By: #### L 500.2500, L100.0100 ####[facility] [address] [place], [address] EST GFR - AA 90 mL/min Normal >60 [facility] Comment on above: Result Comment: Afri can [place] GFR Calc Performed By: #### L 500.2500, L100.0100 ####[facility] [address] [place], [address] GAP 5 Normal 5-15 [facility] Comment on above: Performed By: #### L 500.2500, L100.0100 ####[facility] [address] [place], [address] GFR/1.73 sq M.predicted among non-blacks MDRD (S/P/Bld) [Vol rate/Area] 74 mL/min/{1.73_m2} Normal >60 [facility] Comment on above: Result Comment: Non- GFR Calc Performed By: #### L 500.2500, L100.0100 ####[facility] [address] [place], [address] Glucose [Mass/Vol] 87 mg/dL Normal 74-106 [facility] Comment on above: Performed By: #### L 500.2500, L100.0100 ####[facility] [address] [place], [address] Potassium [Moles/Vol] 3.2 mmol/L Low 3.5-5.1 [facility] Comment on above: Performed By: #### L 500.2500, L100.0100 ####[facility] [address] [place], [address] Sodium [Moles/Vol] 144 mmol/L Normal 136-145 [facility] Comment on above: Performed By: #### L 500.2500, L100.0100 ####[facility] [address] [place], [address] Urea nitrogen [Mass/Vol] 23 mg/dL High 7-18 [facility] Comment on above: Performed By: #### L 500.2500, L100.0100 ####[facility] [address] [place], [address] Basophil percentageOrdered B y: Joannajorge a Sol on 04-28-2024 Basophils/100 WBC (Bld) 0.3 % 0-1 [facility] Blood urea nitrogen (BUN)/cr eatinine ratioOrdered By: Joannajorge a Sol on 04-28-2024 Urea nitrogen/Creatinine [Mass ratio] 22.5 mg/mg High 10-20 [facility] CBC W/Diff, Automatedon - Absolute Lymph 0.97 X10 3/uL Normal 0.83-4.51 [facility] Comment on above: Performed By: #### L 500.2500, L100.0100 ####[facility] [address] [place], [address] Absolute Neut 6.0 X10 3/uL Normal 2.0-7.7 [facility] Comment on above: Performed By: #### L 500.2500, L100.0100 ####[facility] [address] [place], [address] Basophils/100 WBC (Bld) 0.3 % Normal 0-1 [facility] Comment on above: Performed By: #### L 500.2500, L100.0100 ####[facility] [address] [place], [address] Eosinophils/100 WBC (Bld) 1.3 % Normal 0-5 [facility] Comment on above: Performed By: #### L 500.2500, L100.0100 ####[facility] [address] [place], [address] Erythrocyte distribution width (RBC) [Ratio] 13.2 % Normal 11.6-14.6 [facility] Comment on above: Performed By: #### L 500.2500, L100.0100 ####[facility] [address] [place], [address] Hematocrit (Bld) [Volume fraction] 23.2 % Low 40-54 [facility] Comment on above: Performed By: #### L 500.2500, L100.0100 ####[facility] [address] [place], [address] Hemoglobin (Bld) [Mass/Vol] 7.7 g/dL Low 13.0-16.5 [facility] Comment on above: Performed By: #### L 500.2500, L100.0100 ####[facility] [address] [place], [address] IG% 0.600 Normal 0.0-0.9 [facility] Comment on above: Result Comment: IG% - Immature Granulocytes (promyelocytes, myelocytes andmetamyelocytes) > 1% indicates that a LEFT SHIFT is Present. Performed By: #### L 500.2500, L100.0100 ####[facility] [address] [place], [address] Lymphocytes/100 WBC (Bld) 12.3 % Low 19-41 [facility] Comment on above: Performed By: #### L 500.2500, L100.0100 ####[facility] [address] [place], [address] MCH (RBC) [Entitic mass] 32.6 pg High 27.0-32.0 [facility] Comment on above: Performed By: #### L 500.2500, L100.0100 ####[facility] [address] [place], [address] MCHC (RBC) [Mass/Vol] 33.2 g/dL Normal 32-36 [facility] Comment on above: Performed By: #### L 500.2500, L100.0100 ####[facility] [address] [place], [address] MCV (RBC) [Entitic vol] 98.3 fL High 80-94 [facility] Comment on above: Performed By: #### L 500.2500, L100.0100 ####[facility] [address] [place], [address] Monocytes/100 WBC (Bld) 9.5 % Normal 0-10 [facility] Comment on above: Performed By: #### L 500.2500, L100.0100 ####[facility] [address] [place], [address] Neutrophils/100 WBC (Bld) 76.0 % High 47-70 [facility] Comment on above: Performed By: #### L 500.2500, L100.0100 ####[facility] [address] [place], [address] Nucleated RBC (Bld) [#/Vol] 0 10*3/uL Normal 0-5 [facility] Comment on above: Performed By: #### L 500.2500, L100.0100 ####[facility] [address] [place], [address] Platelet mean volume (Bld) [Entitic vol] 10.0 fL Normal 6.2-12.0 [facility] Comment on above: Performed By: #### L 500.2500, L100.0100 ####[facility] [address] [place], [address] Platelets (Bld) [#/Vol] 249 10*3/uL Normal 150-450 [facility] Comment on above: Performed By: #### L 500.2500, L100.0100 ####[facility] [address] [place], [address] RBC (Bld) [#/Vol] 2.36 10*6/uL Low 4.6-6.2 [facility] Comment on above: Performed By: #### L 500.2500, L100.0100 ####[facility] [address] [place], [address] RDW SD 44.6 fl High 35.1-43.9 [facility] Comment on above: Performed By: #### L 500.2500, L100.0100 ####[facility] [address] [place], [address] WBC (Bld) [#/Vol] 7.9 10*3/uL Normal 4.4-11.0 [facility] Comment on above: Performed By: #### L 500.2500, L100.0100 ####[facility] [address] [place], [address] Carbon dioxide measurementOr dered By: Joanna Sol on 04-28-2024 CO2 [Moles/Vol] 23.0 mmol/L 21.0-32.0 [facility] Chloride measurementOrdered By: Joanna Sol on 04-28-2024 Chloride [Moles/Vol] 115 mmol/L High 98-107 [facility] Discharge Instructionon 04-02 Discharge Instruction Normal [facility] Eosinophil percentageOrdered By: Joanna Sol on 04-28-2024 Eosinophils/100 WBC (Bld) 1.3 % 0-5 [facility] Erythrocyte distribution wid th ratioOrdered By: Joanna Sol on 04-28-2024 Erythrocyte distribution width (RBC) [Ratio] 13.2 % 11.6-14.6 [facility] Erythrocyte distribution wid th standard deviationOrdered By: Joanna Sol on 04-28-2024 Erythrocyte distribution width (RBC) [Entitic vol] 44.6 fL High 35.1-43.9 [facility] Estimated glomerular filtrat ion rate (GFR) AmericanOrdered By: Joanna Sol on 04-28-2024 Estimated GFR (MDRD) Amer 90 mL/min >60 [facility] Comment on above: GFR Calc Estimation of creatinine thalia aranceOrdered By: Joanna Sol on 04-28-2024 Estimated Creatinine Clearance Calc 57.52 ml/min [facility] Glomerular filtration rate ( GFR) estimationOrdered By: Joanna Sol on 04-28-2024 Estimated GFR (MDRD) Non-Af Amer 74 mL/min >60 [facility] Comment on above: Non- GFR Calc Glucose measurementOrdered B y: Joanna Sol on 04-28-2024 Glucose [Mass/Vol] 87 mg/dL 74-106 [facility] Hematocrit Auto (Bld) [Volum e fraction]Ordered By: Joanna Sol on 04-28-2024 Hematocrit (Bld) [Volume fraction] 23.2 % Low 40-54 [facility] Hemoglobin measurementOrdere d By: Joanna Sol on 04-28-2024 Hemoglobin (Bld) [Mass/Vol] 7.7 g/dL Low 13.0-16.5 [facility] Immature granulocytes/100 WB C Auto (Bld)Ordered By: Joanna Sol on 04-28-2024 Immature granulocytes/100 WBC (Bld) 0.600 % 0.0-0.9 [facility] Comment on above: IG% - Immature Granu locytes (promyelocytes, myelocytes and metamyelocytes) > 1% indicates that a LEFT SHIFT is Present. Lymphocytes Auto (Unsp spec) [#/Vol]Ordered By: Joanna Sol on 04-28-2024 Lymphocytes (Bld) [#/Vol] 0.97 10*3/uL 0.83-4.51 [facility] Lymphocytes/100 WBC Auto (Un sp spec)Ordered By: Joanna Sol on 04-28-2024 Lymphocytes/100 WBC (Bld) 12.3 % Low 19-41 [facility] MCV (mean corpuscular volume ) determinationOrdered By: Joanna Sol on 04-28-2024 MCV (RBC) [Entitic vol] 98.3 fL High 80-94 [facility] Mean corpuscular hemoglobin (MCH) determinationOrdered By: Joanna Sol on 04-28-2024 MCH (RBC) [Entitic mass] 32.6 pg High 27.0-32.0 [facility] Mean corpuscular hemoglobin concentration (MCHC) determinationOrdered By: Joanna Sol on 04-28-2024 MCHC (RBC) [Mass/Vol] 33.2 g/dL 32-36 [facility] Mean platelet volume determi nationOrdered By: Joanna Sol on 04-28-2024 Platelet mean volume (Bld) [Entitic vol] 10.0 fL 6.2-12.0 [facility] Monocyte percentageOrdered B y: Joanna Sol on 04-28-2024 Monocytes/100 WBC (Bld) 9.5 % 0-10 [facility] Neutrophil percentageOrdered By: Joanna Sol on 04-28-2024 Neutrophils/100 WBC (Bld) 76.0 % High 47-70 [facility] Nucleated red blood cell per centageOrdered By: Joanna Sol on 04-28-2024 Nucleated RBC/100 WBC (Bld) [Ratio] 0 % 0-5 [facility] Platelet countOrdered By: Na leandra Sol on 04-28-2024 Platelets (Bld) [#/Vol] 249 10*3/uL 150-450 [facility] Potassium measurementOrdered By: Joanna Sol on 04-28-2024 Potassium [Moles/Vol] 3.2 mmol/L Low 3.5-5.1 [facility] RBC Auto (Bld) [#/Vol]Ordere d By: Joanna Sol on 04-28-2024 RBC (Bld) [#/Vol] 2.36 10*6/uL Low 4.6-6.2 [facility] Serum anion gap measurementO rdered By: Joanna Sol on 04-28-2024 Anion gap [Moles/Vol] 5 mmol/L 5-15 [facility] Serum or plasma calcium ambar urement (mass/volume)Ordered By: Joanna Sol on 04-28-2024 Calcium [Mass/Vol] 8.2 mg/dL Low 8.5-10.1 [facility] Serum or plasma creatinine m easurement (mass/volume)Ordered By: Joanna Sol on 04-28-2024 Creatinine [Mass/Vol] 1.02 mg/dL 0.70-1.30 [facility] Comment on above: The validity of the calculated GFR & GFRAA in patients over 70 years has not been determined. Clinical correlation is essential. Serum or plasma urea nitroge n measurement (mass/volume)Ordered By: Joanna Sol on 04-28-2024 Urea nitrogen [Mass/Vol] 23 mg/dL High 7-18 [facility] Sodium levelOrdered By: Joanna Sol on 04-28-2024 Sodium [Moles/Vol] 144 mmol/L 136-145 [facility] White blood cell (WBC) count Ordered By: Joanna Sol on 04-28-2024 WBC (Bld) [#/Vol] 7.9 10*3/uL 4.4-11.0 [facility] Basic Metabolic Profile (BMP )on 04-27-2024 BUN/CRE 26.4 RATIO High 10-20 [facility] Comment on above: Performed By: #### L 100.0100, L500.2500 ####[facility] [address] [place], [place], [address] [place],Total 8.2 mg/dL Low 8.5-10.1 [facility] Comment on above: Performed By: #### L 100.0100, L500.2500 ####[facility] [address] [place], [address] Chloride [Moles/Vol] 115 mmol/L High 98-107 [facility] Comment on above: Performed By: #### L 100.0100, L500.2500 ####[facility] [address] [place], [address] CO2 [Moles/Vol] 23.0 mmol/L Normal 21.0-32.0 [facility] Comment on above: Performed By: #### L 100.0100, L500.2500 ####[facility] [address] [place], [address] Creatinine [Mass/Vol] 1.06 mg/dL Normal 0.70-1.30 [facility] Comment on above: Result Comment: The validity of the calculated GFR GFRAA in patients over70 years has not been determined. Clinical correlation isessential. Performed By: #### L 100.0100, L500.2500 ####[facility] [address] [place], [address] ECRCL 55.35 ml/min Normal [facility] Comment on above: Performed By: #### L 100.0100, L500.2500 ####[facility] [address] [place], [address] EST GFR - AA 86 mL/min Normal >60 [facility] Comment on above: Result Comment: Afri can [place] GFR Calc Performed By: #### L 100.0100, L500.2500 ####[facility] [address] [place], [address] GAP 4 Low 5-15 [facility] Comment on above: Performed By: #### L 100.0100, L500.2500 ####[facility] [address] [place], [address] GFR/1.73 sq M.predicted among non-blacks MDRD (S/P/Bld) [Vol rate/Area] 71 mL/min/{1.73_m2} Normal >60 [facility] Comment on above: Result Comment: Non- GFR Calc Performed By: #### L 100.0100, L500.2500 ####[facility] [address] [place], [address] Glucose [Mass/Vol] 111 mg/dL High 74-106 [facility] Comment on above: Result Comment: Fast ing Glucose result from 100 to 125 mg/dLsuggests IMPAIRED HOMEOSTASIS per A.D.A. criteria. Performed By: #### L 100.0100, L500.2500 ####[facility] [address] [place], [address] Potassium [Moles/Vol] 3.5 mmol/L Normal 3.5-5.1 [facility] Comment on above: Performed By: #### L 100.0100, L500.2500 ####[facility] [address] [place], [address] Sodium [Moles/Vol] 143 mmol/L Normal 136-145 [facility] Comment on above: Performed By: #### L 100.0100, L500.2500 ####[facility] [address] [place], [address] Urea nitrogen [Mass/Vol] 28 mg/dL High 7-18 [facility] Comment on above: Performed By: #### L 100.0100, L500.2500 ####[facility] [address] [place], [address] CBC W/Diff, Automatedon 11-2 Absolute Lymph 0.87 X10 3/uL Normal 0.83-4.51 [facility] Comment on above: Performed By: #### L 100.0100, L500.2500 ####[facility] [address] [place], [address] Absolute Neut 8.2 X10 3/uL High 2.0-7.7 [facility] Comment on above: Performed By: #### L 100.0100, L500.2500 ####[facility] [address] [place], [address] Basophils/100 WBC (Bld) 0.5 % Normal 0-1 [facility] Comment on above: Performed By: #### L 100.0100, L500.2500 ####[facility] [address] [place], [address] Eosinophils/100 WBC (Bld) 0.4 % Normal 0-5 [facility] Comment on above: Performed By: #### L 100.0100, L500.2500 ####[facility] [address] [place], [address] Erythrocyte distribution width (RBC) [Ratio] 12.5 % Normal 11.6-14.6 [facility] Comment on above: Performed By: #### L 100.0100, L500.2500 ####[facility] [address] [place], [address] Hematocrit (Bld) [Volume fraction] 24.2 % Low 40-54 [facility] Comment on above: Performed By: #### L 100.0100, L500.2500 ####[facility] [address] [place], [address] Hemoglobin (Bld) [Mass/Vol] 8.0 g/dL Low 13.0-16.5 [facility] Comment on above: Performed By: #### L 100.0100, L500.2500 ####[facility] [address] [place], [address] IG% 0.600 Normal 0.0-0.9 [facility] Comment on above: Result Comment: IG% - Immature Granulocytes (promyelocytes, myelocytes andmetamyelocytes) > 1% indicates that a LEFT SHIFT is Present. Performed By: #### L 100.0100, L500.2500 ####[facility] [address] [place], [address] Lymphocytes/100 WBC (Bld) 8.6 % Low 19-41 [facility] Comment on above: Performed By: #### L 100.0100, L500.2500 ####[facility] [address] [place], [address] MCH (RBC) [Entitic mass] 32.9 pg High 27.0-32.0 [facility] Comment on above: Performed By: #### L 100.0100, L500.2500 ####[facility] [address] [place], [address] MCHC (RBC) [Mass/Vol] 33.1 g/dL Normal 32-36 [facility] Comment on above: Performed By: #### L 100.0100, L500.2500 ####[facility] [address] [place], [address] MCV (RBC) [Entitic vol] 99.6 fL High 80-94 [facility] Comment on above: Performed By: #### L 100.0100, L500.2500 ####[facility] [address] [place], [address] Monocytes/100 WBC (Bld) 8.4 % Normal 0-10 [facility] Comment on above: Performed By: #### L 100.0100, L500.2500 ####[facility] [address] [place], [address] Neutrophils/100 WBC (Bld) 81.5 % High 47-70 [facility] Comment on above: Performed By: #### L 100.0100, L500.2500 ####[facility] [address] [place], [address] Nucleated RBC (Bld) [#/Vol] 0 10*3/uL Normal 0-5 [facility] Comment on above: Performed By: #### L 100.0100, L500.2500 ####[facility] [address] [place], [address] Platelet mean volume (Bld) [Entitic vol] 10.0 fL Normal 6.2-12.0 [facility] Comment on above: Performed By: #### L 100.0100, L500.2500 ####[facility] [address] [place], [address] Platelets (Bld) [#/Vol] 240 10*3/uL Normal 150-450 [facility] Comment on above: Performed By: #### L 100.0100, L500.2500 ####[facility] [address] [place], [address] RBC (Bld) [#/Vol] 2.43 10*6/uL Low 4.6-6.2 [facility] Comment on above: Performed By: #### L 100.0100, L500.2500 ####[facility] [address] [place], [address] RDW SD 44.1 fl High 35.1-43.9 [facility] Comment on above: Performed By: #### L 100.0100, L500.2500 ####[facility] [address] [place], [address] WBC (Bld) [#/Vol] 10.1 10*3/uL Normal 4.4-11.0 [facility] Comment on above: Performed By: #### L 100.0100, L500.2500 ####[facility] [address] [place], [address] Colonoscopy Reporton 024 Colonoscopy Report Normal [facility] MR/POSTOP.ANEon 04-27-2024 MR/POSTOP.ANE Normal [facility] MR/IKQXXPZC5om 04-27-2024 MR/POSTOPAN2 Normal [facility] Surgery Specimen Level Atif 04-27-2024 Surgery Specimen Level IV Normal [facility] Comment on above: Performed By: #### P SUIV ####[facility] [address] [place], [address] Basic Metabolic Profile (BMP )on 04-26-2024 BUN/CRE 43.1 RATIO High 10-20 [facility] Comment on above: Performed By: #### L 100.0100, L501.9520, L500.2500 ####[facility] [address] [place], [address] CA,Total 7.9 mg/dL Low 8.5-10.1 [facility] Comment on above: Performed By: #### L 100.0100, L501.9520, L500.2500 ####[facility] [address] [place], [address] Chloride [Moles/Vol] 118 mmol/L High 98-107 [facility] Comment on above: Performed By: #### L 100.0100, L501.9520, L500.2500 ####[facility] [address] [place], [address] CO2 [Moles/Vol] 23.0 mmol/L Normal 21.0-32.0 [facility] Comment on above: Performed By: #### L 100.0100, L501.9520, L500.2500 ####[facility] [address] [place], [address] Creatinine [Mass/Vol] 1.02 mg/dL Normal 0.70-1.30 [facility] Comment on above: Result Comment: The validity of the calculated GFR GFRAA in patients over70 years has not been determined. Clinical correlation isessential. Performed By: #### L 100.0100, L501.9520, L500.2500 ####[facility] [address] [place], [address] ECRCL 57.52 ml/min Normal [facility] Comment on above: Performed By: #### L 100.0100, L501.9520, L500.2500 ####[facility] [address] [place], [address] EST GFR - AA 90 mL/min Normal >60 [facility] Comment on above: Result Comment: Afri can [place] GFR Calc Performed By: #### L 100.0100, L501.9520, L500.2500 ####[facility] [address] [place], [address] GAP 4 Low 5-15 [facility] Comment on above: Performed By: #### L 100.0100, L501.9520, L500.2500 ####[facility] [address] [place], [address] GFR/1.73 sq M.predicted among non-blacks MDRD (S/P/Bld) [Vol rate/Area] 74 mL/min/{1.73_m2} Normal >60 [facility] Comment on above: Result Comment: Non- GFR Calc Performed By: #### L 100.0100, L501.9520, L500.2500 ####[facility] [address] [place], [address] Glucose [Mass/Vol] 101 mg/dL Normal 74-106 [facility] Comment on above: Result Comment: Fast ing Glucose result from 100 to 125 mg/dLsuggests IMPAIRED HOMEOSTASIS per A.D.A. criteria. Performed By: #### L 100.0100, L501.9520, L500.2500 ####[facility] [address] [place], [address] Potassium [Moles/Vol] 3.9 mmol/L Normal 3.5-5.1 [facility] Comment on above: Performed By: #### L 100.0100, L501.9520, L500.2500 ####[facility] [address] [place], [address] Sodium [Moles/Vol] 145 mmol/L Normal 136-145 [facility] Comment on above: Performed By: #### L 100.0100, L501.9520, L500.2500 ####[facility] [address] [place], [address] Urea nitrogen [Mass/Vol] 44 mg/dL High 7-18 [facility] Comment on above: Performed By: #### L 100.0100, L501.9520, L500.2500 ####[facility] [address] [place], [address] CBC W/Diff, Automatedon 11-2 Absolute Lymph 1.16 X10 3/uL Normal 0.83-4.51 [facility] Comment on above: Performed By: #### L 100.0100, L501.9520, L500.2500 ####[facility] [address] [place], [address] Absolute Neut 3.0 X10 3/uL Normal 2.0-7.7 [facility] Comment on above: Performed By: #### L 100.0100, L501.9520, L500.2500 ####[facility] [address] [place], [address] Basophils/100 WBC (Bld) 0.6 % Normal 0-1 [facility] Comment on above: Performed By: #### L 100.0100, L501.9520, L500.2500 ####[facility] [address] [place], [address] Eosinophils/100 WBC (Bld) 2.4 % Normal 0-5 [facility] Comment on above: Performed By: #### L 100.0100, L501.9520, L500.2500 ####[facility] [address] [place], [address] Erythrocyte distribution width (RBC) [Ratio] 12.4 % Normal 11.6-14.6 [facility] Comment on above: Performed By: #### L 100.0100, L501.9520, L500.2500 ####[facility] [address] [place], [address] Hematocrit (Bld) [Volume fraction] 22.8 % Low 40-54 [facility] Comment on above: Performed By: #### L 100.0100, L501.9520, L500.2500 ####[facility] [address] [place], [address] Hemoglobin (Bld) [Mass/Vol] 7.2 g/dL Low 13.0-16.5 [facility] Comment on above: Performed By: #### L 100.0100, L501.9520, L500.2500 ####[facility] [address] [place], [address] IG% 0.400 Normal 0.0-0.9 [facility] Comment on above: Result Comment: IG% - Immature Granulocytes (promyelocytes, myelocytes andmetamyelocytes) > 1% indicates that a LEFT SHIFT is Present. Performed By: #### L 100.0100, L501.9520, L500.2500 ####[facility] [address] [place], [address] Lymphocytes/100 WBC (Bld) 23.6 % Normal 19-41 [facility] Comment on above: Performed By: #### L 100.0100, L501.9520, L500.2500 ####[facility] [address] [place], [address] MCH (RBC) [Entitic mass] 31.9 pg Normal 27.0-32.0 [facility] Comment on above: Performed By: #### L 100.0100, L501.9520, L500.2500 ####[facility] [address] [place], [address] MCHC (RBC) [Mass/Vol] 31.6 g/dL Low 32-36 [facility] Comment on above: Performed By: #### L 100.0100, L501.9520, L500.2500 ####[facility] [address] [place], [address] MCV (RBC) [Entitic vol] 100.9 fL High 80-94 [facility] Comment on above: Performed By: #### L 100.0100, L501.9520, L500.2500 ####[facility] [address] [place], [address] Monocytes/100 WBC (Bld) 11.2 % High 0-10 [facility] Comment on above: Performed By: #### L 100.0100, L501.9520, L500.2500 ####[facility] [address] [place], [address] Neutrophils/100 WBC (Bld) 61.8 % Normal 47-70 [facility] Comment on above: Performed By: #### L 100.0100, L501.9520, L500.2500 ####[facility] [address] [place], [address] Nucleated RBC (Bld) [#/Vol] 0 10*3/uL Normal 0-5 [facility] Comment on above: Performed By: #### L 100.0100, L501.9520, L500.2500 ####[facility] [address] [place], [address] Platelet mean volume (Bld) [Entitic vol] 9.9 fL Normal 6.2-12.0 [facility] Comment on above: Performed By: #### L 100.0100, L501.9520, L500.2500 ####[facility] [address] [place], [address] Platelets (Bld) [#/Vol] 209 10*3/uL Normal 150-450 [facility] Comment on above: Performed By: #### L 100.0100, L501.9520, L500.2500 ####[facility] [address] [place], [address] RBC (Bld) [#/Vol] 2.26 10*6/uL Low 4.6-6.2 [facility] Comment on above: Performed By: #### L 100.0100, L501.9520, L500.2500 ####[facility] [address] [place], [address] RDW SD 44.5 fl High 35.1-43.9 [facility] Comment on above: Performed By: #### L 100.0100, L501.9520, L500.2500 ####[facility] [address] [place], [address] WBC (Bld) [#/Vol] 4.9 10*3/uL Normal 4.4-11.0 [facility] Comment on above: Performed By: #### L 100.0100, L501.9520, L500.2500 ####[facility] [address] [place], [address] EGD Reporton 04-26-2024 EGD Report Normal [facility] International normalized rat io (INR) calculationOrdered By: Elian Maldonado on 04-26-2024 INR Coag (Bld) [Relative time] 1.3 {INR} [facility] MR/POSTOP.ANEon 04-26-2024 MR/POSTOP.ANE Normal [facility] MR/NGZIKGLR9on 04-26-2024 MR/POSTOPAN2 Normal [facility] Partial Thromboplast Timeon 04-26-2024 aPTT Coag (Bld) [Time] 29.4 s Normal 24.1-36.2 [facility] Comment on above: Performed By: #### L 300.4310, L300.3900 ####[facility] [address] [place], [address] Prothrombin Time w/INRon INR Coag (PPP) [Relative time] 1.3 {INR} Normal [facility] Comment on above: Performed By: #### L 300.4310, L300.3900 ####[facility] [address] [place], [address] PT Coag (PPP) [Time] 16.5 s High 11.7-14.9 [facility] Comment on above: Performed By: #### L 300.4310, L300.3900 ####[facility] [address] [place], [address] Prothrombin timeOrdered By: Elian Maldonado on 04-26-2024 PT Coag (PPP) [Time] 16.5 s High 11.7-14.9 [facility] TSH QnOrdered By: Elian Maldonado on 04-26-2024 Thyroid Stimulating Hormone (TSH) 5.340 uIU/mL High 0.358-3.74 0 [facility] Thyroid Stim Hormone (TSH)on 04-26-2024 TSH 5.340 uIU/mL High 0.358-3.74 0 [facility] Comment on above: Performed By: #### L 100.0100, L501.9520, L500.2500 ####[facility] [address] [place], [address] aPTT Coag (PPP) [Time]Ordere d By: Elian Maldonado on 04-26-2024 aPTT Coag (Bld) [Time] 29.4 s 24.1-36.2 [facility] 12 Lead EKGon 04-25-2024 12 Lead EKG Normal [facility] Albumin to globulin ratioOrd ered By: Butch Barcenas on 04-25-2024 Albumin/Globulin [Mass ratio] 1.3 {ratio} 0.9-2.4 [facility] Bilirubin, totalOrdered By: Butch Barcenas on 04-25-2024 Bilirubin [Mass/Vol] 0.90 mg/dL 0.20-1.00 [facility] Comment on above: For patients on eltr ombopag therapy, use of Dimension [place] TBIL is not recommended. CBC W/Diff, Automatedon 04-02 Absolute Lymph 2.03 X10 3/uL Normal 0.83-4.51 [facility] Comment on above: Performed By: #### L 500.4050, BTS, L501.4020, L100.0100 ####[facility] [address] [place], [address] Absolute Neut 5.5 X10 3/uL Normal 2.0-7.7 [facility] Comment on above: Performed By: #### L 500.4050, BTS, L501.4020, L100.0100 ####[facility] [address] [place], [address] Basophils/100 WBC (Bld) 0.7 % Normal 0-1 [facility] Comment on above: Performed By: #### L 500.4050, BTS, L501.4020, L100.0100 ####[facility] [address] [place], [address] Eosinophils/100 WBC (Bld) 0.8 % Normal 0-5 [facility] Comment on above: Performed By: #### L 500.4050, BTS, L501.4020, L100.0100 ####[facility] [address] [place], [address] Erythrocyte distribution width (RBC) [Ratio] 12.4 % Normal 11.6-14.6 [facility] Comment on above: Performed By: #### L 500.4050, BTS, L501.4020, L100.0100 ####[facility] [address] [place], [address] Hematocrit (Bld) [Volume fraction] 29.3 % Low 40-54 [facility] Comment on above: Performed By: #### L 500.4050, BTS, L501.4020, L100.0100 ####[facility] [address] [place], [address] Hemoglobin (Bld) [Mass/Vol] 9.5 g/dL Low 13.0-16.5 [facility] Comment on above: Performed By: #### L 500.4050, BTS, L501.4020, L100.0100 ####[facility] [address] [place], [address] IG% 0.600 Normal 0.0-0.9 [facility] Comment on above: Result Comment: IG% - Immature Granulocytes (promyelocytes, myelocytes andmetamyelocytes) > 1% indicates that a LEFT SHIFT is Present. Performed By: #### L 500.4050, BTS, L501.4020, L100.0100 ####[facility] [address] [place], [address] Lymphocytes/100 WBC (Bld) 23.8 % Normal 19-41 [facility] Comment on above: Performed By: #### L 500.4050, BTS, L501.4020, L100.0100 ####[facility] [address] [place], [address] MCH (RBC) [Entitic mass] 32.8 pg High 27.0-32.0 [facility] Comment on above: Performed By: #### L 500.4050, BTS, L501.4020, L100.0100 ####[facility] [address] [place], [address] MCHC (RBC) [Mass/Vol] 32.4 g/dL Normal 32-36 [facility] Comment on above: Performed By: #### L 500.4050, BTS, L501.4020, L100.0100 ####[facility] [address] [place], [address] MCV (RBC) [Entitic vol] 101.0 fL High 80-94 [facility] Comment on above: Performed By: #### L 500.4050, BTS, L501.4020, L100.0100 ####[facility] [address] [place], [address] Monocytes/100 WBC (Bld) 10.1 % High 0-10 [facility] Comment on above: Performed By: #### L 500.4050, BTS, L501.4020, L100.0100 ####[facility] [address] [place], [address] Neutrophils/100 WBC (Bld) 64.0 % Normal 47-70 [facility] Comment on above: Performed By: #### L 500.4050, BTS, L501.4020, L100.0100 ####[facility] [address] [place], [address] Nucleated RBC (Bld) [#/Vol] 0 10*3/uL Normal 0-5 [facility] Comment on above: Performed By: #### L 500.4050, BTS, L501.4020, L100.0100 ####[facility] [address] [place], [address] Platelet mean volume (Bld) [Entitic vol] 10.0 fL Normal 6.2-12.0 [facility] Comment on above: Performed By: #### L 500.4050, BTS, L501.4020, L100.0100 ####[facility] [address] [place], [address] Platelets (Bld) [#/Vol] 302 10*3/uL Normal 150-450 [facility] Comment on above: Performed By: #### L 500.4050, BTS, L501.4020, L100.0100 ####[facility] [address] [place], [address] RBC (Bld) [#/Vol] 2.90 10*6/uL Low 4.6-6.2 [facility] Comment on above: Performed By: #### L 500.4050, BTS, L501.4020, L100.0100 ####[facility] [address] [place], [address] RDW SD 44.7 fl High 35.1-43.9 [facility] Comment on above: Performed By: #### L 500.4050, BTS, L501.4020, L100.0100 ####[facility] [address] [place], [address] WBC (Bld) [#/Vol] 8.5 10*3/uL Normal 4.4-11.0 [facility] Comment on above: Performed By: #### L 500.4050, BTS, L501.4020, L100.0100 ####[facility] [address] [place], [address] Chest 1 View (Portable)on Chest 1 View (Portable) Normal [facility] Comprehensive Metabolic Prof ilon 04-25-2024 Albumin [Mass/Vol] 3.3 g/dL Normal 3.2-5.0 [facility] Comment on above: Order Comment: 'TROP ' Serial specimen #1, #2 or #3: 1 Performed By: #### L 500.4050, BTS, L501.4020, L100.0100 ####[facility] [address] [place], [address] Albumin/Globulin [Mass ratio] 1.3 {ratio} Normal 0.9-2.4 [facility] Comment on above: Order Comment: 'TROP ' Serial specimen #1, #2 or #3: 1 Performed By: #### L 500.4050, BTS, L501.4020, L100.0100 ####[facility] [address] [place], [address] ALK P 53 U/L Normal 45-117 [facility] Comment on above: Order Comment: 'TROP ' Serial specimen #1, #2 or #3: 1 Performed By: #### L 500.4050, BTS, L501.4020, L100.0100 ####[facility] [address] [place], [address] ALT [Catalytic activity/Vol] 11 U/L Low 16-61 [facility] Comment on above: Order Comment: 'TROP ' Serial specimen #1, #2 or #3: 1 Performed By: #### L 500.4050, BTS, L501.4020, L100.0100 ####[facility] [address] [place], [address] AST [Catalytic activity/Vol] 13 U/L Low 15-37 [facility] Comment on above: Order Comment: 'TROP ' Serial specimen #1, #2 or #3: 1 Performed By: #### L 500.4050, BTS, L501.4020, L100.0100 ####[facility] [address] [place], [address] Bilirubin [Mass/Vol] 0.90 mg/dL Normal 0.20-1.00 [facility] Comment on above: Order Comment: 'TROP ' Serial specimen #1, #2 or #3: 1 Result Comment: For patients on eltrombopag therapy, use of Dimension [place] TBIL is not recommended. Performed By: #### L 500.4050, BTS, L501.4020, L100.0100 ####[facility] [address] [place], [address] BUN/CRE 44.2 RATIO High 10-20 [facility] Comment on above: Order Comment: 'TROP ' Serial specimen #1, #2 or #3: 1 Performed By: #### L 500.4050, BTS, L501.4020, L100.0100 ####[facility] [address] [place], [address] CA,Total 8.9 mg/dL Normal 8.5-10.1 [facility] Comment on above: Order Comment: 'TROP ' Serial specimen #1, #2 or #3: 1 Performed By: #### L 500.4050, BTS, L501.4020, L100.0100 ####[facility] [address] [place], [address] Chloride [Moles/Vol] 114 mmol/L High 98-107 [facility] Comment on above: Order Comment: 'TROP ' Serial specimen #1, #2 or #3: 1 Performed By: #### L 500.4050, BTS, L501.4020, L100.0100 ####[facility] [address] [place], [address] CO2 [Moles/Vol] 24.0 mmol/L Normal 21.0-32.0 [facility] Comment on above: Order Comment: 'TROP ' Serial specimen #1, #2 or #3: 1 Performed By: #### L 500.4050, BTS, L501.4020, L100.0100 ####[facility] [address] [place], [address] Creatinine [Mass/Vol] 1.38 mg/dL High 0.70-1.30 [facility] Comment on above: Order Comment: 'TROP ' Serial specimen #1, #2 or #3: 1 Result Comment: The validity of the calculated GFR GFRAA in patients over70 years has not been determined. Clinical correlation isessential. Performed By: #### L 500.4050, BTS, L501.4020, L100.0100 ####[facility] [address] [place], [address] ECRCL 43.88 ml/min Normal [facility] Comment on above: Order Comment: 'TROP ' Serial specimen #1, #2 or #3: 1 Performed By: #### L 500.4050, BTS, L501.4020, L100.0100 ####[facility] [address] [place], [address] EST GFR - AA 64 mL/min Normal >60 [facility] Comment on above: Order Comment: 'TROP ' Serial specimen #1, #2 or #3: 1 Result Comment: Afri can [place] GFR Calc Performed By: #### L 500.4050, BTS, L501.4020, L100.0100 ####[facility] [address] [place], [address] GAP 7 Normal 5-15 [facility] Comment on above: Order Comment: 'TROP ' Serial specimen #1, #2 or #3: 1 Performed By: #### L 500.4050, BTS, L501.4020, L100.0100 ####[facility] [address] [place], [address] GFR/1.73 sq M.predicted among non-blacks MDRD (S/P/Bld) [Vol rate/Area] 53 mL/min/{1.73_m2} Low >60 [facility] Comment on above: Order Comment: 'TROP ' Serial specimen #1, #2 or #3: 1 Result Comment: Non- GFR Calc Performed By: #### L 500.4050, BTS, L501.4020, L100.0100 ####[facility] [address] [place], [address] Globulin (S) [Mass/Vol] 2.6 g/dL Normal 2.2-4.2 [facility] Comment on above: Order Comment: 'TROP ' Serial specimen #1, #2 or #3: 1 Performed By: #### L 500.4050, BTS, L501.4020, L100.0100 ####[facility] [address] [place], [address] Glucose [Mass/Vol] 142 mg/dL High 74-106 [facility] Comment on above: Order Comment: 'TROP ' Serial specimen #1, #2 or #3: 1 Result Comment: Fast ing Glucose result greater than or equal to 126 mg/dLsuggests DIABETES MELLITUS per A.D.A. criteria. Performed By: #### L 500.4050, BTS, L501.4020, L100.0100 ####[facility] [address] [place], [address] Potassium [Moles/Vol] 3.9 mmol/L Normal 3.5-5.1 [facility] Comment on above: Order Comment: 'TROP ' Serial specimen #1, #2 or #3: 1 Performed By: #### L 500.4050, BTS, L501.4020, L100.0100 ####[facility] [address] [place], [address] Sodium [Moles/Vol] 144 mmol/L Normal 136-145 [facility] Comment on above: Order Comment: 'TROP ' Serial specimen #1, #2 or #3: 1 Performed By: #### L 500.4050, BTS, L501.4020, L100.0100 ####[facility] [address] [place], [address] T PROT 5.9 g/dL Low 6.4-8.2 [facility] Comment on above: Order Comment: 'TROP ' Serial specimen #1, #2 or #3: 1 Performed By: #### L 500.4050, BTS, L501.4020, L100.0100 ####[facility] [address] [place], [address] Urea nitrogen [Mass/Vol] 61 mg/dL High 7-18 [facility] Comment on above: Order Comment: 'TROP ' Serial specimen #1, #2 or #3: 1 Performed By: #### L 500.4050, BTS, L501.4020, L100.0100 ####[facility] [address] [place], [address] Emergency Department Summary on 04-25-2024 Emergency Department Summary Normal [facility] L501.4020on 04-25-2024 TROPONIN-I HS 7 pg/mL Normal 3.0-78.0 [facility] Comment on above: Order Comment: 'TROP ' Serial specimen #1, #2 or #3: 1 Result Comment: Plea se Note: New Test Units and Gender Specific Reference Ranges. For more information see Policy Stat Procedure [facility] High Sensitivity Troponin (TNIH) and attachments. Performed By: #### L 500.4050, BTS, L501.4020, L100.0100 ####[facility] [address] [place], [address] Laboratory - Chemistry and C hemistry - challengeOrdered By: Butch Barcenas on 04-25-2024 AST [Catalytic activity/Vol] 13 U/L Low 15-37 [facility] Lower GI hemoglobin IA Ql (S tl)Ordered By: Butch Barcenas on 04-25-2024 Stool Occult Blood (CHRIS) Positive Abnormal [facility] MR/CON.PCM.GIon 04-25-2024 MR/CON.PCM.GI Normal [facility] Serum globulin measurementOr dered By: Butch Barcenas on 04-25-2024 Globulin (S) [Mass/Vol] 2.6 g/dL 2.2-4.2 [facility] Serum or plasma alanine [place] otransferase (ALT) measurementOrdered By: Butch Barcenas on 04-25-2024 ALT [Catalytic activity/Vol] 11 U/L Low 16-61 [facility] Serum or plasma albumin ambar urement (mass/volume)Ordered By: Butch Barcenas on 04-25-2024 Albumin [Mass/Vol] 3.3 g/dL 3.2-5.0 [facility] Serum or plasma alkaline toni sphatase measurementOrdered By: Butch Barcenas on 04-25-2024 ALP [Catalytic activity/Vol] 53 U/L 45-117 [facility] Stool Occult Blood iFOBon STOB Positive Normal [facility] Comment on above: Performed By: #### M 100.7900 ####[facility] [address] [place], [address] Total proteinOrdered By: Aurora aBrcenas on 04-25-2024 Protein [Mass/Vol] 5.9 g/dL Low 6.4-8.2 [facility] Troponin IOrdered By: Butch Barcenas on 04-25-2024 Troponin I High Sensitivity 7 pg/mL 3.0-78.0 [facility] Comment on above: Please Note: [place] t Units and Gender Specific Reference Ranges. For more information see Policy Stat Procedure [place] High Sensitivity Troponin (TNIH) and attachments. Type AND Screenon 04-25-2024 ABO and Rh group Nom (Bld) Blood group O Rh(D) positive Normal [facility] Comment on above: Order Comment: A Performed By: #### L 500.4050, BTS, L501.4020, L100.0100 ####[facility] [address] [place], [address] Renal Profileon 03-29-2024 Albumin [Mass/Vol] 3.2 g/dL Normal 3.2-5.0 [facility] Comment on above: Performed By: #### L 500.3600 ####[facility] [address] [place], [address] BUN/CRE 17.1 RATIO Normal - [facility] Comment on above: Performed By: #### L 500.3600 ####[facility] [address] [place], [address] CA,Total 9.0 mg/dL Normal 8.5-10.1 [facility] Comment on above: Performed By: #### L 500.3600 ####[facility] [address] [place], [address] Chloride [Moles/Vol] 112 mmol/L High 98-107 [facility] Comment on above: Performed By: #### L 500.3600 ####[facility] [address] [place], [address] CO2 [Moles/Vol] 26.0 mmol/L Normal 21.0-32.0 [facility] Comment on above: Performed By: #### L 500.3600 ####[facility] [address] [place], [address] Creatinine [Mass/Vol] 1.23 mg/dL Normal 0.70-1.30 [facility] Comment on above: Result Comment: The validity of the calculated GFR GFRAA in patients over70 years has not been determined. Clinical correlation isessential. Performed By: #### L 500.3600 ####[facility] [address] [place], [address] EST GFR - AA 73 mL/min Normal >60 [facility] Comment on above: Result Comment: Afri can [place] GFR Calc Performed By: #### L 500.3600 ####[facility] [address] [place], [address] GFR/1.73 sq M.predicted among non-blacks MDRD (S/P/Bld) [Vol rate/Area] 60 mL/min/{1.73_m2} Normal >60 [facility] Comment on above: Result Comment: Non- GFR Calc Performed By: #### L 500.3600 ####[facility] [address] [place], [address] Glucose [Mass/Vol] 94 mg/dL Normal 74-106 [facility] Comment on above: Performed By: #### L 500.3600 ####[facility] [address] [place], [address] Phosphate [Mass/Vol] 3.1 mg/dL Normal 2.5-4.9 [facility] Comment on above: Performed By: #### L 500.3600 ####[facility] [address] [place], [address] Potassium [Moles/Vol] 3.6 mmol/L Normal 3.5-5.1 [facility] Comment on above: Performed By: #### L 500.3600 ####[facility] [address] [place], [address] Sodium [Moles/Vol] 144 mmol/L Normal 136-145 [facility] Comment on above: Performed By: #### L 500.3600 ####[facility] [address] [place], [address] Urea nitrogen [Mass/Vol] 21 mg/dL High 7-18 [facility] Comment on above: Performed By: #### L 500.3600 ####[facility] [address] [place], [address] Echo Completeon 03-07-2024 Echo Complete Normal [facility] CBC W/Diff, Automatedon - Absolute Lymph 1.01 X10 3/uL Normal 0.83-4.51 [facility] Comment on above: Performed By: #### L 100.0100 ####[facility] [address] [place], [address] Absolute Neut 4.8 X10 3/uL Normal 2.0-7.7 [facility] Comment on above: Performed By: #### L 100.0100 ####[facility] [address] [place], [address] Basophils/100 WBC (Bld) 0.7 % Normal 0-1 [facility] Comment on above: Performed By: #### L 100.0100 ####[facility] [address] [place], [address] Eosinophils/100 WBC (Bld) 0.6 % Normal 0-5 [facility] Comment on above: Performed By: #### L 100.0100 ####[facility] [address] [place], [address] Erythrocyte distribution width (RBC) [Ratio] 13.0 % Normal 11.6-14.6 [facility] Comment on above: Performed By: #### L 100.0100 ####[facility] [address] [place], [address] Hematocrit (Bld) [Volume fraction] 41.1 % Normal 40-54 [facility] Comment on above: Performed By: #### L 100.0100 ####[facility] [address] [place], [address] Hemoglobin (Bld) [Mass/Vol] 13.3 g/dL Normal 13.0-16.5 [facility] Comment on above: Performed By: #### L 100.0100 ####[facility] [address] [place], [address] IG% 0.600 Normal 0.0-0.9 [facility] Comment on above: Result Comment: IG% - Immature Granulocytes (promyelocytes, myelocytes andmetamyelocytes) > 1% indicates that a LEFT SHIFT is Present. Performed By: #### L 100.0100 ####[facility] [address] [place], [address] Lymphocytes/100 WBC (Bld) 15.1 % Low 19-41 [facility] Comment on above: Performed By: #### L 100.0100 ####[facility] [address] [place], [address] MCH (RBC) [Entitic mass] 32.1 pg High 27.0-32.0 [facility] Comment on above: Performed By: #### L 100.0100 ####[facility] [address] [place], [address] MCHC (RBC) [Mass/Vol] 32.4 g/dL Normal 32-36 [facility] Comment on above: Performed By: #### L 100.0100 ####[facility] [address] [place], [address] MCV (RBC) [Entitic vol] 99.3 fL High 80-94 [facility] Comment on above: Performed By: #### L 100.0100 ####[facility] [address] [place], [address] Monocytes/100 WBC (Bld) 10.5 % High 0-10 [facility] Comment on above: Performed By: #### L 100.0100 ####[facility] [address] [place], [address] Neutrophils/100 WBC (Bld) 72.5 % High 47-70 [facility] Comment on above: Performed By: #### L 100.0100 ####[facility] [address] [place], [address] Nucleated RBC (Bld) [#/Vol] 0 10*3/uL Normal 0-5 [facility] Comment on above: Performed By: #### L 100.0100 ####[facility] [address] [place], [address] Platelet mean volume (Bld) [Entitic vol] 9.7 fL Normal 6.2-12.0 [facility] Comment on above: Performed By: #### L 100.0100 ####[facility] [address] [place], [address] Platelets (Bld) [#/Vol] 297 10*3/uL Normal 150-450 [facility] Comment on above: Performed By: #### L 100.0100 ####[facility] [address] [place], [address] RBC (Bld) [#/Vol] 4.14 10*6/uL Low 4.6-6.2 [facility] Comment on above: Performed By: #### L 100.0100 ####[facility] [address] [place], [address] RDW SD 47.0 fl High 35.1-43.9 [facility] Comment on above: Performed By: #### L 100.0100 ####[facility] [address] [place], [address] WBC (Bld) [#/Vol] 6.7 10*3/uL Normal 4.4-11.0 [facility] Comment on above: Performed By: #### L 100.0100 ####[facility] [address] [place], [address] MR/BMS.BVSon 02-18-2024 MR/BMS.BVS Normal [facility] Cardiology Visit Reporton Cardiology Visit Report Normal [facility] Office Visit Reporton 2023 Office Visit Report Normal [facility] Gastroenterology Visit Repor ton 01-21-2024 Gastroenterology Visit Report Normal [facility] Basic Metabolic Profile (BMP )on 01-20-2024 BUN/CRE 14.3 RATIO Normal 10-20 [facility] Comment on above: Performed By: #### L 500.2500 ####[facility] [address] [place], [address] CA,Total 9.3 mg/dL Normal 8.5-10.1 [facility] Comment on above: Performed By: #### L 500.2500 ####[facility] [address] [place], [address] Chloride [Moles/Vol] 111 mmol/L High 98-107 [facility] Comment on above: Performed By: #### L 500.2500 ####[facility] [address] [place], [address] CO2 [Moles/Vol] 26.0 mmol/L Normal 21.0-32.0 [facility] Comment on above: Performed By: #### L 500.2500 ####[facility] [address] [place], [address] Creatinine [Mass/Vol] 1.54 mg/dL High 0.70-1.30 [facility] Comment on above: Result Comment: The validity of the calculated GFR GFRAA in patients over70 years has not been determined. Clinical correlation isessential. Performed By: #### L 500.2500 ####[facility] [address] [place], [address] EST GFR - AA 56 mL/min Low >60 [facility] Comment on above: Result Comment: Afri can [place] GFR Calc Performed By: #### L 500.2500 ####[facility] [address] [place], [address] GAP 4 Low 5-15 [facility] Comment on above: Performed By: #### L 500.2500 ####[facility] [address] [place], [address] GFR/1.73 sq M.predicted among non-blacks MDRD (S/P/Bld) [Vol rate/Area] 46 mL/min/{1.73_m2} Low >60 [facility] Comment on above: Result Comment: Non- GFR Calc Performed By: #### L 500.2500 ####[facility] [address] [place], [address] Glucose [Mass/Vol] 92 mg/dL Normal 74-106 [facility] Comment on above: Performed By: #### L 500.2500 ####[facility] [address] [place], [address] Potassium [Moles/Vol] 4.4 mmol/L Normal 3.5-5.1 [facility] Comment on above: Performed By: #### L 500.2500 ####[facility] [address] [place], [address] Sodium [Moles/Vol] 141 mmol/L Normal 136-145 [facility] Comment on above: Performed By: #### L 500.2500 ####[facility] [address] [place], [address] Urea nitrogen [Mass/Vol] 22 mg/dL High 7-18 [facility] Comment on above: Performed By: #### L 500.2500 ####[facility] [address] [place], [address] Hemoglobinon 01-20-2024 Hemoglobin (Bld) [Mass/Vol] 13.1 g/dL Normal 13.0-16.5 [facility] Comment on above: Performed By: #### L 100.1300 ####[facility] [address] [place], [address] MR/BMS.BVSon 01-20-2024 MR/BMS.BVS Normal [facility] Basic Metabolic Profile (BMP )on 01-11-2024 BUN/CRE 24.1 RATIO High 10-20 [facility] Comment on above: Order Comment: CC: Anand BRIDGES Performed By: #### L 500.2500, L100.0100 ####[facility] [address] [place], [address] CA,Total 8.9 mg/dL Normal 8.5-10.1 [facility] Comment on above: Order Comment: CC: Anand BRIDGES Performed By: #### L 500.2500, L100.0100 ####[facility] [address] [place], [address] Chloride [Moles/Vol] 113 mmol/L High 98-107 [facility] Comment on above: Order Comment: CC: Anand BRIDGES Performed By: #### L 500.2500, L100.0100 ####[facility] [address] [place], [address] CO2 [Moles/Vol] 24.0 mmol/L Normal 21.0-32.0 [facility] Comment on above: Order Comment: CC: Anand BRIDGES Performed By: #### L 500.2500, L100.0100 ####[facility] [address] [place], [address] Creatinine [Mass/Vol] 1.41 mg/dL High 0.70-1.30 [facility] Comment on above: Order Comment: CC: Anand BRIDGES Result Comment: The validity of the calculated GFR GFRAA in patients over70 years has not been determined. Clinical correlation isessential. Performed By: #### L 500.2500, L100.0100 ####[facility] [address] [place], [address] EST GFR - AA 62 mL/min Normal >60 [facility] Comment on above: Order Comment: CC: Anand BRIDGES Result Comment: Afri can [place] GFR Calc Performed By: #### L 500.2500, L100.0100 ####[facility] [address] [place], [address] GAP 4 Low 5-15 [facility] Comment on above: Order Comment: CC: Anand BRIDGES Performed By: #### L 500.2500, L100.0100 ####[facility] [address] [place], [address] GFR/1.73 sq M.predicted among non-blacks MDRD (S/P/Bld) [Vol rate/Area] 51 mL/min/{1.73_m2} Low >60 [facility] Comment on above: Order Comment: CC: Anand BRIDGES Result Comment: Non- GFR Calc Performed By: #### L 500.2500, L100.0100 ####[facility] [address] [place], [address] Glucose [Mass/Vol] 94 mg/dL Normal 74-106 [facility] Comment on above: Order Comment: CC: Anand BRIDGES Performed By: #### L 500.2500, L100.0100 ####[facility] [address] [place], [address] Potassium [Moles/Vol] 4.5 mmol/L Normal 3.5-5.1 [facility] Comment on above: Order Comment: CC: Anand BRIDGES Performed By: #### L 500.2500, L100.0100 ####[facility] [address] [place], [address] Sodium [Moles/Vol] 141 mmol/L Normal 136-145 [facility] Comment on above: Order Comment: CC: Anand BRIDGES Performed By: #### L 500.2500, L100.0100 ####[facility] [address] [place], [address] Urea nitrogen [Mass/Vol] 34 mg/dL High 7-18 [facility] Comment on above: Order Comment: CC: Anand BRIDGES Performed By: #### L 500.2500, L100.0100 ####[facility] [address] [place], [address] CBC W/Diff, Automatedon 12-30 Absolute Lymph 0.99 X10 3/uL Normal 0.83-4.51 [facility] Comment on above: Order Comment: CC: Anand BRIDGES Performed By: #### L 500.2500, L100.0100 ####[facility] [address] [place], [address] Absolute Neut 5.1 X10 3/uL Normal 2.0-7.7 [facility] Comment on above: Order Comment: CC: Anand BRIDGES Performed By: #### L 500.2500, L100.0100 ####[facility] [address] [place], [address] Basophils/100 WBC (Bld) 0.4 % Normal 0-1 [facility] Comment on above: Order Comment: CC: Anand BRIDGES Performed By: #### L 500.2500, L100.0100 ####[facility] [address] [place], [address] Eosinophils/100 WBC (Bld) 0.7 % Normal 0-5 [facility] Comment on above: Order Comment: CC: Anand BRIDGES Performed By: #### L 500.2500, L100.0100 ####[facility] [address] [place], [address] Erythrocyte distribution width (RBC) [Ratio] 14.4 % Normal 11.6-14.6 [facility] Comment on above: Order Comment: CC: Anand BRIDGES Performed By: #### L 500.2500, L100.0100 ####[facility] [address] [place], [address] Hematocrit (Bld) [Volume fraction] 39.1 % Low 40-54 [facility] Comment on above: Order Comment: CC: Anand BRIDGES Performed By: #### L 500.2500, L100.0100 ####[facility] [address] [place], [address] Hemoglobin (Bld) [Mass/Vol] 12.7 g/dL Low 13.0-16.5 [facility] Comment on above: Order Comment: CC: Anand BRIDGES Performed By: #### L 500.2500, L100.0100 ####[facility] [address] [place], [address] IG% 1.200 High 0.0-0.9 [facility] Comment on above: Order Comment: CC: Anand BRIDGES Result Comment: IG% - Immature Granulocytes (promyelocytes, myelocytes andmetamyelocytes) > 1% indicates that a LEFT SHIFT is Present. Performed By: #### L 500.2500, L100.0100 ####[facility] [address] [place], [address] Lymphocytes/100 WBC (Bld) 14.5 % Low 19-41 [facility] Comment on above: Order Comment: CC: Anand BRIDGES Performed By: #### L 500.2500, L100.0100 ####[facility] [address] [place], [address] MCH (RBC) [Entitic mass] 31.8 pg Normal 27.0-32.0 [facility] Comment on above: Order Comment: CC: Anand BRIDGES Performed By: #### L 500.2500, L100.0100 ####[facility] [address] [place], [address] MCHC (RBC) [Mass/Vol] 32.5 g/dL Normal 32-36 [facility] Comment on above: Order Comment: CC: Anand BRIDGES Performed By: #### L 500.2500, L100.0100 ####[facility] [address] [place], [address] MCV (RBC) [Entitic vol] 97.8 fL High 80-94 [facility] Comment on above: Order Comment: CC: Anand BRIDGES Performed By: #### L 500.2500, L100.0100 ####[facility] [address] [place], [address] Monocytes/100 WBC (Bld) 8.8 % Normal 0-10 [facility] Comment on above: Order Comment: CC: Anand BRIDGES Performed By: #### L 500.2500, L100.0100 ####[facility] [address] [place], [address] Neutrophils/100 WBC (Bld) 74.4 % High 47-70 [facility] Comment on above: Order Comment: CC: Anand BRIDGES Performed By: #### L 500.2500, L100.0100 ####[facility] [address] [place], [address] Nucleated RBC (Bld) [#/Vol] 0 10*3/uL Normal 0-5 [facility] Comment on above: Order Comment: CC: Anand BRIDGES Performed By: #### L 500.2500, L100.0100 ####[facility] [address] [place], [address] Platelet mean volume (Bld) [Entitic vol] 9.3 fL Normal 6.2-12.0 [facility] Comment on above: Order Comment: CC: Anand BRIDGES Performed By: #### L 500.2500, L100.0100 ####[facility] [address] [place], [address] Platelets (Bld) [#/Vol] 273 10*3/uL Normal 150-450 [facility] Comment on above: Order Comment: CC: Anand BRIDGES Performed By: #### L 500.2500, L100.0100 ####[facility] [address] [place], [address] RBC (Bld) [#/Vol] 4.00 10*6/uL Low 4.6-6.2 [facility] Comment on above: Order Comment: CC: Anand BRIDGES Performed By: #### L 500.2500, L100.0100 ####[facility] [address] [place], [address] RDW SD 52.1 fl High 35.1-43.9 [facility] Comment on above: Order Comment: CC: Anand BRIDGES Performed By: #### L 500.2500, L100.0100 ####[facility] [address] [place], [address] WBC (Bld) [#/Vol] 6.8 10*3/uL Normal 4.4-11.0 [facility] Comment on above: Order Comment: CC: Anand BRIDGES Performed By: #### L 500.2500, L100.0100 ####[facility] [address] [place], [address] CBC W/Diff, Automatedon - Absolute Neut Normal 2.0-7.7 [facility] Comment on above: Result Comment: Canc elled via OM: Order cancelled - Patient discharged Performed By: #### L 100.0100 ####[facility] [address] [place], [address] HCT Normal 40-54 [facility] Comment on above: Result Comment: Canc elled via OM: Order cancelled - Patient discharged Performed By: #### L 100.0100 ####[facility] [address] [place], [address] HGB Normal 13.0-16.5 [facility] Comment on above: Result Comment: Canc elled via OM: Order cancelled - Patient discharged Performed By: #### L 100.0100 ####[facility] [address] [place], [address] MCH Normal 27.0-32.0 [facility] Comment on above: Result Comment: Canc elled via OM: Order cancelled - Patient discharged Performed By: #### L 100.0100 ####[facility] [address] [place], [address] MCHC Normal 32-36 [facility] Comment on above: Result Comment: Canc elled via OM: Order cancelled - Patient discharged Performed By: #### L 100.0100 ####[facility] [address] [place], [address] MCV Normal 80-94 [facility] Comment on above: Result Comment: Canc elled via OM: Order cancelled - Patient discharged Performed By: #### L 100.0100 ####[facility] [address] [place], [address] NEUT% Normal 47-70 [facility] Comment on above: Result Comment: Canc elled via OM: Order cancelled - Patient discharged Performed By: #### L 100.0100 ####[facility] [address] [place], [address] PLT Normal 150-450 [facility] Comment on above: Result Comment: Canc elled via OM: Order cancelled - Patient discharged Performed By: #### L 100.0100 ####[facility] [address] [place], [address] RBC Normal 4.6-6.2 [facility] Comment on above: Result Comment: Canc elled via OM: Order cancelled - Patient discharged Performed By: #### L 100.0100 ####[facility] [address] [place], [address] RDW CV Normal 11.6-14.6 [facility] Comment on above: Result Comment: Canc elled via OM: Order cancelled - Patient discharged Performed By: #### L 100.0100 ####[facility] [address] [place], [address] RDW SD Normal 35.1-43.9 [facility] Comment on above: Result Comment: Canc elled via OM: Order cancelled - Patient discharged Performed By: #### L 100.0100 ####[facility] [address] [place], [address] WBC Normal 4.4-11.0 [facility] Comment on above: Result Comment: Canc elled via OM: Order cancelled - Patient discharged Performed By: #### L 100.0100 ####[facility] [address] [place], [address] Basic Metabolic Profile (BMP )on 01-09-2024 BUN Normal 7-18 [facility] Comment on above: Result Comment: Canc elled via OM: Order cancelled - Patient discharged Performed By: #### L 500.2500, L100.0100 ####[facility] [address] [place], [address] BUN/CRE Normal 10-20 [facility] Comment on above: Result Comment: Canc elled via OM: Order cancelled - Patient discharged Performed By: #### L 500.2500, L100.0100 ####[facility] [address] [place], [address] CA,Total Normal 8.5-10.1 [facility] Comment on above: Result Comment: Canc elled via OM: Order cancelled - Patient discharged Performed By: #### L 500.2500, L100.0100 ####[facility] [address] [place], [address] CL Normal 98-107 [facility] Comment on above: Result Comment: Canc elled via OM: Order cancelled - Patient discharged Performed By: #### L 500.2500, L100.0100 ####[facility] [address] [place], [address] CO2 Normal 21.0-32.0 [facility] Comment on above: Result Comment: Canc elled via OM: Order cancelled - Patient discharged Performed By: #### L 500.2500, L100.0100 ####[facility] [address] [place], [address] CREAT,SERUM Normal 0.70-1.30 [facility] Comment on above: Result Comment: Canc elled via OM: Order cancelled - Patient discharged Performed By: #### L 500.2500, L100.0100 ####[facility] [address] [place], [address] EST GFR Normal >60 [facility] Comment on above: Result Comment: Canc elled via OM: Order cancelled - Patient discharged Performed By: #### L 500.2500, L100.0100 ####[facility] [address] [place], [address] EST GFR - AA Normal >60 [facility] Comment on above: Result Comment: Canc elled via OM: Order cancelled - Patient discharged Performed By: #### L 500.2500, L100.0100 ####[facility] [address] [place], [address] GAP Normal 5-15 [facility] Comment on above: Result Comment: Canc elled via OM: Order cancelled - Patient discharged Performed By: #### L 500.2500, L100.0100 ####[facility] [address] [place], [address] GLU Normal 74-106 [facility] Comment on above: Result Comment: Canc elled via OM: Order cancelled - Patient discharged Performed By: #### L 500.2500, L100.0100 ####[facility] [address] [place], [address] Potassium Normal 3.5-5.1 [facility] Comment on above: Result Comment: Canc elled via OM: Order cancelled - Patient discharged Performed By: #### L 500.2500, L100.0100 ####[facility] [address] [place], [address] Basic Metabolic Profile (BMP) Normal 136-145 [facility] Comment on above: Result Comment: Canc elled via OM: Order cancelled - Patient discharged Performed By: #### L 500.2500, L100.0100 ####[facility] [address] [place], [address] CBC W/Diff, Automatedon 08 0-2023 Absolute Neut Normal 2.0-7.7 [facility] Comment on above: Result Comment: Canc elled via OM: Order cancelled - Patient discharged Performed By: #### L 500.2500, L100.0100 ####[facility] [address] [place], [address] HCT Normal 40-54 [facility] Comment on above: Result Comment: Canc elled via OM: Order cancelled - Patient discharged Performed By: #### L 500.2500, L100.0100 ####[facility] [address] [place], [address] HGB Normal 13.0-16.5 [facility] Comment on above: Result Comment: Canc elled via OM: Order cancelled - Patient discharged Performed By: #### L 500.2500, L100.0100 ####[facility] [address] [place], [address] MCH Normal 27.0-32.0 [facility] Comment on above: Result Comment: Canc elled via OM: Order cancelled - Patient discharged Performed By: #### L 500.2500, L100.0100 ####[facility] [address] [place], [address] MCHC Normal 32-36 [facility] Comment on above: Result Comment: Canc elled via OM: Order cancelled - Patient discharged Performed By: #### L 500.2500, L100.0100 ####[facility] [address] [place], [address] MCV Normal 80-94 [facility] Comment on above: Result Comment: Canc elled via OM: Order cancelled - Patient discharged Performed By: #### L 500.2500, L100.0100 ####[facility] [address] [place], [address] NEUT% Normal 47-70 [facility] Comment on above: Result Comment: Canc elled via OM: Order cancelled - Patient discharged Performed By: #### L 500.2500, L100.0100 ####[facility] [address] [place], [address] PLT Normal 150-450 [facility] Comment on above: Result Comment: Canc elled via OM: Order cancelled - Patient discharged Performed By: #### L 500.2500, L100.0100 ####[facility] [address] [place], [address] RBC Normal 4.6-6.2 [facility] Comment on above: Result Comment: Canc elled via OM: Order cancelled - Patient discharged Performed By: #### L 500.2500, L100.0100 ####[facility] [address] [place], [address] RDW CV Normal 11.6-14.6 [facility] Comment on above: Result Comment: Canc elled via OM: Order cancelled - Patient discharged Performed By: #### L 500.2500, L100.0100 ####[facility] [address] [place], [address] RDW SD Normal 35.1-43.9 [facility] Comment on above: Result Comment: Canc elled via OM: Order cancelled - Patient discharged Performed By: #### L 500.2500, L100.0100 ####[facility] [address] [place], [address] WBC Normal 4.4-11.0 [facility] Comment on above: Result Comment: Canc elled via OM: Order cancelled - Patient discharged Performed By: #### L 500.2500, L100.0100 ####[facility] [address] [place], [address] Basic Metabolic Profile (BMP )on 01-08-2024 BUN/CRE 29.8 RATIO High 10-20 [facility] Comment on above: Performed By: #### L 500.2500, L100.0100 ####[facility] [address] [place], [address] CA,Total 8.5 mg/dL Normal 8.5-10.1 [facility] Comment on above: Performed By: #### L 500.2500, L100.0100 ####[facility] [address] [place], [address] Chloride [Moles/Vol] 111 mmol/L High 98-107 [facility] Comment on above: Performed By: #### L 500.2500, L100.0100 ####[facility] [address] [place], [address] CO2 [Moles/Vol] 21.0 mmol/L Normal 21.0-32.0 [facility] Comment on above: Performed By: #### L 500.2500, L100.0100 ####[facility] [address] [place], [address] Creatinine [Mass/Vol] 1.14 mg/dL Normal 0.70-1.30 [facility] Comment on above: Result Comment: The validity of the calculated GFR GFRAA in patients over70 years has not been determined. Clinical correlation isessential. Performed By: #### L 500.2500, L100.0100 ####[facility] [address] [place], [address] ECRCL 53.48 ml/min Normal [facility] Comment on above: Performed By: #### L 500.2500, L100.0100 ####[facility] [address] [place], [address] EST GFR - AA 79 mL/min Normal >60 [facility] Comment on above: Result Comment: Afri can [place] GFR Calc Performed By: #### L 500.2500, L100.0100 ####[facility] [address] [place], [address] GAP 7 Normal 5-15 [facility] Comment on above: Performed By: #### L 500.2500, L100.0100 ####[facility] [address] [place], [address] GFR/1.73 sq M.predicted among non-blacks MDRD (S/P/Bld) [Vol rate/Area] 66 mL/min/{1.73_m2} Normal >60 [facility] Comment on above: Result Comment: Non- GFR Calc Performed By: #### L 500.2500, L100.0100 ####[facility] [address] [place], [address] Glucose [Mass/Vol] 87 mg/dL Normal 74-106 [facility] Comment on above: Performed By: #### L 500.2500, L100.0100 ####[facility] [address] [place], [address] Potassium [Moles/Vol] 4.2 mmol/L Normal 3.5-5.1 [facility] Comment on above: Performed By: #### L 500.2500, L100.0100 ####[facility] [address] [place], [address] Sodium [Moles/Vol] 139 mmol/L Normal 136-145 [facility] Comment on above: Performed By: #### L 500.2500, L100.0100 ####[facility] [address] [place], [address] Urea nitrogen [Mass/Vol] 34 mg/dL High 7-18 [facility] Comment on above: Performed By: #### L 500.2500, L100.0100 ####[facility] [address] [place], [address] BUN Normal 7-18 [facility] Comment on above: Result Comment: DUPL ICATE ORDER Performed By: #### L 500.2500 ####[facility] [address] [place], [address] BUN/CRE Normal 10-20 [facility] Comment on above: Result Comment: DUPL ICATE ORDER Performed By: #### L 500.2500 ####[facility] [address] [place], [address] CA,Total Normal 8.5-10.1 [facility] Comment on above: Result Comment: DUPL ICATE ORDER Performed By: #### L 500.2500 ####[facility] [address] [place], [address] CL Normal 98-107 [facility] Comment on above: Result Comment: DUPL ICATE ORDER Performed By: #### L 500.2500 ####[facility] [address] [place], [address] CO2 Normal 21.0-32.0 [facility] Comment on above: Result Comment: DUPL ICATE ORDER Performed By: #### L 500.2500 ####[facility] [address] [place], [address] CREAT,SERUM Normal 0.70-1.30 [facility] Comment on above: Result Comment: DUPL ICATE ORDER Performed By: #### L 500.2500 ####[facility] [address] [place], [address] EST GFR Normal >60 [facility] Comment on above: Result Comment: DUPL ICATE ORDER Performed By: #### L 500.2500 ####[facility] [address] [place], [address] EST GFR - AA Normal >60 [facility] Comment on above: Result Comment: DUPL ICATE ORDER Performed By: #### L 500.2500 ####[facility] [address] [place], [address] GAP Normal 5-15 [facility] Comment on above: Result Comment: DUPL ICATE ORDER Performed By: #### L 500.2500 ####[facility] [address] [place], [address] GLU Normal 74-106 [facility] Comment on above: Result Comment: DUPL ICATE ORDER Performed By: #### L 500.2500 ####[facility] [address] [place], [address] Potassium Normal 3.5-5.1 [facility] Comment on above: Result Comment: DUPL ICATE ORDER Performed By: #### L 500.2500 ####[facility] [address] [place], [address] Basic Metabolic Profile (BMP) Normal 136-145 [facility] Comment on above: Result Comment: DUPL ICATE ORDER Performed By: #### L 500.2500 ####[facility] [address] [place], [address] CBC W/Diff, Automatedon 08-0 9-2023 Absolute Lymph 1.00 X10 3/uL Normal 0.83-4.51 [facility] Comment on above: Performed By: #### L 500.2500, L100.0100 ####[facility] [address] [place], [address] Absolute Neut 4.4 X10 3/uL Normal 2.0-7.7 [facility] Comment on above: Performed By: #### L 500.2500, L100.0100 ####[facility] [address] [place], [address] Basophils/100 WBC (Bld) 0.3 % Normal 0-1 [facility] Comment on above: Performed By: #### L 500.2500, L100.0100 ####[facility] [address] [place], [address] Eosinophils/100 WBC (Bld) 0.5 % Normal 0-5 [facility] Comment on above: Performed By: #### L 500.2500, L100.0100 ####[facility] [address] [place], [address] Erythrocyte distribution width (RBC) [Ratio] 14.2 % Normal 11.6-14.6 [facility] Comment on above: Performed By: #### L 500.2500, L100.0100 ####[facility] [address] [place], [address] Hematocrit (Bld) [Volume fraction] 36.4 % Low 40-54 [facility] Comment on above: Performed By: #### L 500.2500, L100.0100 ####[facility] [address] [place], [address] Hemoglobin (Bld) [Mass/Vol] 11.9 g/dL Low 13.0-16.5 [facility] Comment on above: Performed By: #### L 500.2500, L100.0100 ####[facility] [address] [place], [address] IG% 0.800 Normal 0.0-0.9 [facility] Comment on above: Result Comment: IG% - Immature Granulocytes (promyelocytes, myelocytes andmetamyelocytes) > 1% indicates that a LEFT SHIFT is Present. Performed By: #### L 500.2500, L100.0100 ####[facility] [address] [place], [address] Lymphocytes/100 WBC (Bld) 16.2 % Low 19-41 [facility] Comment on above: Performed By: #### L 500.2500, L100.0100 ####[facility] [address] [place], [address] MCH (RBC) [Entitic mass] 31.7 pg Normal 27.0-32.0 [facility] Comment on above: Performed By: #### L 500.2500, L100.0100 ####[facility] [address] [place], [address] MCHC (RBC) [Mass/Vol] 32.7 g/dL Normal 32-36 [facility] Comment on above: Performed By: #### L 500.2500, L100.0100 ####[facility] [address] [place], [address] MCV (RBC) [Entitic vol] 97.1 fL High 80-94 [facility] Comment on above: Performed By: #### L 500.2500, L100.0100 ####[facility] [address] [place], [address] Monocytes/100 WBC (Bld) 11.1 % High 0-10 [facility] Comment on above: Performed By: #### L 500.2500, L100.0100 ####[facility] [address] [place], [address] Neutrophils/100 WBC (Bld) 71.1 % High 47-70 [facility] Comment on above: Performed By: #### L 500.2500, L100.0100 ####[facility] [address] [place], [address] Nucleated RBC (Bld) [#/Vol] 0 10*3/uL Normal 0-5 [facility] Comment on above: Performed By: #### L 500.2500, L100.0100 ####[facility] [address] [place], [address] Platelet mean volume (Bld) [Entitic vol] 9.7 fL Normal 6.2-12.0 [facility] Comment on above: Performed By: #### L 500.2500, L100.0100 ####[facility] [address] [place], [address] Platelets (Bld) [#/Vol] 194 10*3/uL Normal 150-450 [facility] Comment on above: Performed By: #### L 500.2500, L100.0100 ####[facility] [address] [place], [address] RBC (Bld) [#/Vol] 3.75 10*6/uL Low 4.6-6.2 [facility] Comment on above: Performed By: #### L 500.2500, L100.0100 ####[facility] [address] [place], [address] RDW SD 50.3 fl High 35.1-43.9 [facility] Comment on above: Performed By: #### L 500.2500, L100.0100 ####[facility] [address] [place], [address] WBC (Bld) [#/Vol] 6.2 10*3/uL Normal 4.4-11.0 [facility] Comment on above: Performed By: #### L 500.2500, L100.0100 ####[facility] [address] [place], [address] Discharge Instructionon 08-0 Discharge Instruction Normal [facility] Stool Occult Blood iFOBon STOB Positive Normal [facility] Comment on above: Performed By: #### M 100.7900 ####[facility] [address] [place], [address] Basic Metabolic Profile (BMP )on 01-07-2024 BUN/CRE 29.5 RATIO High 10-20 [facility] Comment on above: Performed By: #### L 500.2500 ####[facility] [address] [place], [address] CA,Total 8.4 mg/dL Low 8.5-10.1 [facility] Comment on above: Performed By: #### L 500.2500 ####[facility] [address] [place], [address] Chloride [Moles/Vol] 113 mmol/L High 98-107 [facility] Comment on above: Performed By: #### L 500.2500 ####[facility] [address] [place], [address] CO2 [Moles/Vol] 23.0 mmol/L Normal 21.0-32.0 [facility] Comment on above: Performed By: #### L 500.2500 ####[facility] [address] [place], [address] Creatinine [Mass/Vol] 1.32 mg/dL High 0.70-1.30 [facility] Comment on above: Result Comment: The validity of the calculated GFR GFRAA in patients over70 years has not been determined. Clinical correlation isessential. Performed By: #### L 500.2500 ####[facility] [address] [place], [address] ECRCL 46.19 ml/min Normal [facility] Comment on above: Performed By: #### L 500.2500 ####[facility] [address] [place], [address] EST GFR - AA 67 mL/min Normal >60 [facility] Comment on above: Result Comment: Afri can [place] GFR Calc Performed By: #### L 500.2500 ####[facility] [address] [place], [address] GAP 5 Normal 5-15 [facility] Comment on above: Performed By: #### L 500.2500 ####[facility] [address] [place], [address] GFR/1.73 sq M.predicted among non-blacks MDRD (S/P/Bld) [Vol rate/Area] 55 mL/min/{1.73_m2} Low >60 [facility] Comment on above: Result Comment: Non- GFR Calc Performed By: #### L 500.2500 ####[facility] [address] [place], [address] Glucose [Mass/Vol] 86 mg/dL Normal 74-106 [facility] Comment on above: Performed By: #### L 500.2500 ####[facility] [address] [place], [address] Potassium [Moles/Vol] 4.4 mmol/L Normal 3.5-5.1 [facility] Comment on above: Performed By: #### L 500.2500 ####[facility] [address] [place], [address] Sodium [Moles/Vol] 141 mmol/L Normal 136-145 [facility] Comment on above: Performed By: #### L 500.2500 ####[facility] [address] [place], [address] Urea nitrogen [Mass/Vol] 39 mg/dL High 7-18 [facility] Comment on above: Performed By: #### L 500.2500 ####[facility] [address] [place], [address] CBC W/Diff, Automatedon 08-0 8-4 Absolute Lymph 0.88 X10 3/uL Normal 0.83-4.51 [facility] Comment on above: Performed By: #### L 100.0100 ####[facility] [address] [place], [address] Absolute Neut 4.7 X10 3/uL Normal 2.0-7.7 [facility] Comment on above: Performed By: #### L 100.0100 ####[facility] [address] [place], [address] Basophils/100 WBC (Bld) 0.3 % Normal 0-1 [facility] Comment on above: Performed By: #### L 100.0100 ####[facility] [address] [place], [address] Eosinophils/100 WBC (Bld) 0.5 % Normal 0-5 [facility] Comment on above: Performed By: #### L 100.0100 ####[facility] [address] [place], [address] Erythrocyte distribution width (RBC) [Ratio] 14.1 % Normal 11.6-14.6 [facility] Comment on above: Performed By: #### L 100.0100 ####[facility] [address] [place], [address] Hematocrit (Bld) [Volume fraction] 34.7 % Low 40-54 [facility] Comment on above: Performed By: #### L 100.0100 ####[facility] [address] [place], [address] Hemoglobin (Bld) [Mass/Vol] 11.3 g/dL Low 13.0-16.5 [facility] Comment on above: Performed By: #### L 100.0100 ####[facility] [address] [place], [address] IG% 0.800 Normal 0.0-0.9 [facility] Comment on above: Result Comment: IG% - Immature Granulocytes (promyelocytes, myelocytes andmetamyelocytes) > 1% indicates that a LEFT SHIFT is Present. Performed By: #### L 100.0100 ####[facility] [address] [place], [address] Lymphocytes/100 WBC (Bld) 13.8 % Low 19-41 [facility] Comment on above: Performed By: #### L 100.0100 ####[facility] [address] [place], [address] MCH (RBC) [Entitic mass] 31.7 pg Normal 27.0-32.0 [facility] Comment on above: Performed By: #### L 100.0100 ####[facility] [address] [place], [address] MCHC (RBC) [Mass/Vol] 32.6 g/dL Normal 32-36 [facility] Comment on above: Performed By: #### L 100.0100 ####[facility] [address] [place], [address] MCV (RBC) [Entitic vol] 97.2 fL High 80-94 [facility] Comment on above: Performed By: #### L 100.0100 ####[facility] [address] [place], [address] Monocytes/100 WBC (Bld) 10.5 % High 0-10 [facility] Comment on above: Performed By: #### L 100.0100 ####[facility] [address] [place], [address] Neutrophils/100 WBC (Bld) 74.1 % High 47-70 [facility] Comment on above: Performed By: #### L 100.0100 ####[facility] [address] [place], [address] Nucleated RBC (Bld) [#/Vol] 0 10*3/uL Normal 0-5 [facility] Comment on above: Performed By: #### L 100.0100 ####[facility] [address] [place], [address] Platelet mean volume (Bld) [Entitic vol] 10.0 fL Normal 6.2-12.0 [facility] Comment on above: Performed By: #### L 100.0100 ####[facility] [address] [place], [address] Platelets (Bld) [#/Vol] 174 10*3/uL Normal 150-450 [facility] Comment on above: Performed By: #### L 100.0100 ####[facility] [address] [place], [address] RBC (Bld) [#/Vol] 3.57 10*6/uL Low 4.6-6.2 [facility] Comment on above: Performed By: #### L 100.0100 ####[facility] [address] [place], [address] RDW SD 50.3 fl High 35.1-43.9 [facility] Comment on above: Performed By: #### L 100.0100 ####[facility] [address] [place], [address] WBC (Bld) [#/Vol] 6.4 10*3/uL Normal 4.4-11.0 [facility] Comment on above: Performed By: #### L 100.0100 ####[facility] [address] 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, [address] Basic Metabolic Profile (BMP )on 01-06-2024 BUN/CRE 29.9 RATIO High 10-20 [facility] Comment on above: Performed By: #### L 500.2500, L501.9520, L100.0100 ####[facility] [address] [place], [address] CA,Total 8.4 mg/dL Low 8.5-10.1 [facility] Comment on above: Performed By: #### L 500.2500, L501.9520, L100.0100 ####[facility] [address] [place], [address] Chloride [Moles/Vol] 111 mmol/L High 98-107 [facility] Comment on above: Performed By: #### L 500.2500, L501.9520, L100.0100 ####[facility] [address] [place], [address] CO2 [Moles/Vol] 22.0 mmol/L Normal 21.0-32.0 [facility] Comment on above: Performed By: #### L 500.2500, L501.9520, L100.0100 ####[facility] [address] [place], [address] Creatinine [Mass/Vol] 1.74 mg/dL High 0.70-1.30 [facility] Comment on above: Result Comment: The validity of the calculated GFR GFRAA in patients over70 years has not been determined. Clinical correlation isessential. Performed By: #### L 500.2500, L501.9520, L100.0100 ####[facility] [address] [place], [address] ECRCL 35.04 ml/min Normal [facility] Comment on above: Performed By: #### L 500.2500, L501.9520, L100.0100 ####[facility] [address] [place], [address] EST GFR - AA 49 mL/min Low >60 [facility] Comment on above: Result Comment: Afri can [place] GFR Calc Performed By: #### L 500.2500, L501.9520, L100.0100 ####[facility] [address] [place], [address] GAP 8 Normal 5-15 [facility] Comment on above: Performed By: #### L 500.2500, L501.9520, L100.0100 ####[facility] [address] [place], [address] GFR/1.73 sq M.predicted among non-blacks MDRD (S/P/Bld) [Vol rate/Area] 40 mL/min/{1.73_m2} Low >60 [facility] Comment on above: Result Comment: Non- GFR Calc Performed By: #### L 500.2500, L501.9520, L100.0100 ####[facility] [address] [place], [address] Glucose [Mass/Vol] 86 mg/dL Normal 74-106 [facility] Comment on above: Performed By: #### L 500.2500, L501.9520, L100.0100 ####[facility] [address] [place], [address] Potassium [Moles/Vol] 4.2 mmol/L Normal 3.5-5.1 [facility] Comment on above: Performed By: #### L 500.2500, L501.9520, L100.0100 ####[facility] [address] [place], [address] Sodium [Moles/Vol] 141 mmol/L Normal 136-145 [facility] Comment on above: Performed By: #### L 500.2500, L501.9520, L100.0100 ####[facility] [address] [place], [address] Urea nitrogen [Mass/Vol] 52 mg/dL High 7-18 [facility] Comment on above: Performed By: #### L 500.2500, L501.9520, L100.0100 ####[facility] [address] [place], [address] CBC W/Diff, Automatedon 08-0 7-2024 Absolute Lymph 0.97 X10 3/uL Normal 0.83-4.51 [facility] Comment on above: Performed By: #### L 500.2500, L501.9520, L100.0100 ####[facility] [address] [place], [address] Absolute Neut 6.2 X10 3/uL Normal 2.0-7.7 [facility] Comment on above: Performed By: #### L 500.2500, L501.9520, L100.0100 ####[facility] [address] [place], [address] Basophils/100 WBC (Bld) 0.5 % Normal 0-1 [facility] Comment on above: Performed By: #### L 500.2500, L501.9520, L100.0100 ####[facility] [address] [place], [address] Eosinophils/100 WBC (Bld) 0.5 % Normal 0-5 [facility] Comment on above: Performed By: #### L 500.2500, L501.9520, L100.0100 ####[facility] [address] [place], [address] Erythrocyte distribution width (RBC) [Ratio] 14.4 % Normal 11.6-14.6 [facility] Comment on above: Performed By: #### L 500.2500, L501.9520, L100.0100 ####[facility] [address] [place], [address] Hematocrit (Bld) [Volume fraction] 35.5 % Low 40-54 [facility] Comment on above: Performed By: #### L 500.2500, L501.9520, L100.0100 ####[facility] [address] [place], [address] Hemoglobin (Bld) [Mass/Vol] 11.6 g/dL Low 13.0-16.5 [facility] Comment on above: Performed By: #### L 500.2500, L501.9520, L100.0100 ####[facility] [address] [place], [address] IG% 0.700 Normal 0.0-0.9 [facility] Comment on above: Result Comment: IG% - Immature Granulocytes (promyelocytes, myelocytes andmetamyelocytes) > 1% indicates that a LEFT SHIFT is Present. Performed By: #### L 500.2500, L501.9520, L100.0100 ####[facility] [address] [place], [address] Lymphocytes/100 WBC (Bld) 12.0 % Low 19-41 [facility] Comment on above: Performed By: #### L 500.2500, L501.9520, L100.0100 ####[facility] [address] [place], [address] MCH (RBC) [Entitic mass] 31.5 pg Normal 27.0-32.0 [facility] Comment on above: Performed By: #### L 500.2500, L501.9520, L100.0100 ####[facility] [address] [place], [address] MCHC (RBC) [Mass/Vol] 32.7 g/dL Normal 32-36 [facility] Comment on above: Performed By: #### L 500.2500, L501.9520, L100.0100 ####[facility] [address] [place], [address] MCV (RBC) [Entitic vol] 96.5 fL High 80-94 [facility] Comment on above: Performed By: #### L 500.2500, L501.9520, L100.0100 ####[facility] [address] [place], [address] Monocytes/100 WBC (Bld) 9.9 % Normal 0-10 [facility] Comment on above: Performed By: #### L 500.2500, L501.9520, L100.0100 ####[facility] [address] [place], [address] Neutrophils/100 WBC (Bld) 76.4 % High 47-70 [facility] Comment on above: Performed By: #### L 500.2500, L501.9520, L100.0100 ####[facility] [address] [place], [address] Nucleated RBC (Bld) [#/Vol] 0 10*3/uL Normal 0-5 [facility] Comment on above: Performed By: #### L 500.2500, L501.9520, L100.0100 ####[facility] [address] [place], [address] Platelet mean volume (Bld) [Entitic vol] 10.1 fL Normal 6.2-12.0 [facility] Comment on above: Performed By: #### L 500.2500, L501.9520, L100.0100 ####[facility] [address] [place], [address] Platelets (Bld) [#/Vol] 163 10*3/uL Normal 150-450 [facility] Comment on above: Performed By: #### L 500.2500, L501.9520, L100.0100 ####[facility] [address] [place], [address] RBC (Bld) [#/Vol] 3.68 10*6/uL Low 4.6-6.2 [facility] Comment on above: Performed By: #### L 500.2500, L501.9520, L100.0100 ####[facility] [address] [place], [address] RDW SD 50.6 fl High 35.1-43.9 [facility] Comment on above: Performed By: #### L 500.2500, L501.9520, L100.0100 ####[facility] [address] [place], [address] WBC (Bld) [#/Vol] 8.1 10*3/uL Normal 4.4-11.0 [facility] Comment on above: Performed By: #### L 500.2500, L501.9520, L100.0100 ####[facility] [address] [place], [address] Consultation - Nephrologyon 01-06-2024 Consultation - Nephrology Normal [facility] Consultation - Surgicalon Consultation - Surgical Normal [facility] Kidney and Bladderon 024 Kidney and Bladder Normal [facility] Thyroid Stim Hormone (TSH)on 01-06-2024 TSH 1.08 uIU/mL Normal 0.358-3.74 [facility] Comment on above: Performed By: #### L 500.2500, L501.9520, L100.0100 ####[facility] [address] [place], [address] Urine Electrolytes- Randomon 01-06-2024 UR CL 123 mmol/L Normal Not Establ. [facility] Comment on above: Performed By: #### L 500.9400 ####[facility] [address] [place], [address] UR K 49.9 mmol/L Normal Not Establ. [facility] Comment on above: Performed By: #### L 500.9400 ####[facility] [address] [place], [address] 12 Lead EKGon 01-05-2024 12 Lead EKG Normal [facility] BNP,B-Type NATRIURETIC PEPTI Britt 01-05-2024 Natriuretic peptide B (Bld) [Mass/Vol] 84.8 pg/mL Normal 0-100 [facility] Comment on above: Performed By: #### L 503.6620, L500.4050, L501.4020, L100.0100 ####[facility] [address] [place], [address] CBC W/Diff, Automatedon 08 Absolute Lymph 1.26 X10 3/uL Normal 0.83-4.51 [facility] Comment on above: Performed By: #### L 503.6620, L500.4050, L501.4020, L100.0100 ####[facility] [address] [place], [address] Absolute Neut 6.8 X10 3/uL Normal 2.0-7.7 [facility] Comment on above: Performed By: #### L 503.6620, L500.4050, L501.4020, L100.0100 ####[facility] [address] [place], [address] Basophils/100 WBC (Bld) 0.3 % Normal 0-1 [facility] Comment on above: Performed By: #### L 503.6620, L500.4050, L501.4020, L100.0100 ####[facility] [address] [place], [address] Eosinophils/100 WBC (Bld) 0.2 % Normal 0-5 [facility] Comment on above: Performed By: #### L 503.6620, L500.4050, L501.4020, L100.0100 ####[facility] [address] [place], [address] Erythrocyte distribution width (RBC) [Ratio] 14.4 % Normal 11.6-14.6 [facility] Comment on above: Performed By: #### L 503.6620, L500.4050, L501.4020, L100.0100 ####[facility] [address] [place], [address] Hematocrit (Bld) [Volume fraction] 42.1 % Normal 40-54 [facility] Comment on above: Performed By: #### L 503.6620, L500.4050, L501.4020, L100.0100 ####[facility] [address] [place], [address] Hemoglobin (Bld) [Mass/Vol] 13.8 g/dL Normal 13.0-16.5 [facility] Comment on above: Performed By: #### L 503.6620, L500.4050, L501.4020, L100.0100 ####[facility] [address] [place], [address] IG% 0.800 Normal 0.0-0.9 [facility] Comment on above: Result Comment: IG% - Immature Granulocytes (promyelocytes, myelocytes andmetamyelocytes) > 1% indicates that a LEFT SHIFT is Present. Performed By: #### L 503.6620, L500.4050, L501.4020, L100.0100 ####[facility] [address] [place], [address] Lymphocytes/100 WBC (Bld) 13.9 % Low 19-41 [facility] Comment on above: Performed By: #### L 503.6620, L500.4050, L501.4020, L100.0100 ####[facility] [address] [place], [address] MCH (RBC) [Entitic mass] 31.7 pg Normal 27.0-32.0 [facility] Comment on above: Performed By: #### L 503.6620, L500.4050, L501.4020, L100.0100 ####[facility] [address] [place], [address] MCHC (RBC) [Mass/Vol] 32.8 g/dL Normal 32-36 [facility] Comment on above: Performed By: #### L 503.6620, L500.4050, L501.4020, L100.0100 ####[facility] [address] [place], [address] MCV (RBC) [Entitic vol] 96.8 fL High 80-94 [facility] Comment on above: Performed By: #### L 503.6620, L500.4050, L501.4020, L100.0100 ####[facility] [address] [place], [address] Monocytes/100 WBC (Bld) 9.3 % Normal 0-10 [facility] Comment on above: Performed By: #### L 503.6620, L500.4050, L501.4020, L100.0100 ####[facility] [address] [place], [address] Neutrophils/100 WBC (Bld) 75.5 % High 47-70 [facility] Comment on above: Performed By: #### L 503.6620, L500.4050, L501.4020, L100.0100 ####[facility] [address] [place], [address] Nucleated RBC (Bld) [#/Vol] 0 10*3/uL Normal 0-5 [facility] Comment on above: Performed By: #### L 503.6620, L500.4050, L501.4020, L100.0100 ####[facility] [address] [place], [address] Platelet mean volume (Bld) [Entitic vol] 9.9 fL Normal 6.2-12.0 [facility] Comment on above: Performed By: #### L 503.6620, L500.4050, L501.4020, L100.0100 ####[facility] [address] [place], [address] Platelets (Bld) [#/Vol] 199 10*3/uL Normal 150-450 [facility] Comment on above: Performed By: #### L 503.6620, L500.4050, L501.4020, L100.0100 ####[facility] [address] [place], [address] RBC (Bld) [#/Vol] 4.35 10*6/uL Low 4.6-6.2 [facility] Comment on above: Performed By: #### L 503.6620, L500.4050, L501.4020, L100.0100 ####[facility] [address] [place], [address] RDW SD 51.1 fl High 35.1-43.9 [facility] Comment on above: Performed By: #### L 503.6620, L500.4050, L501.4020, L100.0100 ####[facility] [address] [place], [address] WBC (Bld) [#/Vol] 9.0 10*3/uL Normal 4.4-11.0 [facility] Comment on above: Performed By: #### L 503.6620, L500.4050, L501.4020, L100.0100 ####[facility] [address] [place], [address] CPK Total, Creatine Kinaseon 01-05-2024 CPK TOTAL 44 U/L Normal 39-308 [facility] Comment on above: Performed By: #### L 501.1400, L501.3620 ####[facility] [address] [place], [address] Chest 1 View (Portable)on Chest 1 View (Portable) Normal [facility] Comprehensive Metabolic Prof ilon 01-05-2024 Albumin [Mass/Vol] 3.6 g/dL Normal 3.2-5.0 [facility] Comment on above: Order Comment: 'TROP ' Serial specimen #1, #2 or #3: 1 Performed By: #### L 503.6620, L500.4050, L501.4020, L100.0100 ####[facility] [address] [place], [address] Albumin/Globulin [Mass ratio] 1.1 {ratio} Normal 0.9-2.4 [facility] Comment on above: Order Comment: 'TROP ' Serial specimen #1, #2 or #3: 1 Performed By: #### L 503.6620, L500.4050, L501.4020, L100.0100 ####[facility] [address] [place], [address] ALK P 63 U/L Normal 45-117 [facility] Comment on above: Order Comment: 'TROP ' Serial specimen #1, #2 or #3: 1 Performed By: #### L 503.6620, L500.4050, L501.4020, L100.0100 ####[facility] [address] [place], [address] ALT [Catalytic activity/Vol] 24 U/L Normal 16-61 [facility] Comment on above: Order Comment: 'TROP ' Serial specimen #1, #2 or #3: 1 Performed By: #### L 503.6620, L500.4050, L501.4020, L100.0100 ####[facility] [address] [place], [address] AST [Catalytic activity/Vol] 12 U/L Low 15-37 [facility] Comment on above: Order Comment: 'TROP ' Serial specimen #1, #2 or #3: 1 Performed By: #### L 503.6620, L500.4050, L501.4020, L100.0100 ####[facility] [address] [place], [address] Bilirubin [Mass/Vol] 1.40 mg/dL High 0.20-1.00 [facility] Comment on above: Order Comment: 'TROP ' Serial specimen #1, #2 or #3: 1 Result Comment: For patients on eltrombopag therapy, use of Dimension [place] TBIL is not recommended. Performed By: #### L 503.6620, L500.4050, L501.4020, L100.0100 ####[facility] [address] [place], [address] BUN/CRE 19.9 RATIO Normal 10-20 [facility] Comment on above: Order Comment: 'TROP ' Serial specimen #1, #2 or #3: 1 Performed By: #### L 503.6620, L500.4050, L501.4020, L100.0100 ####[facility] [address] [place], [address] CA,Total 9.4 mg/dL Normal 8.5-10.1 [facility] Comment on above: Order Comment: 'TROP ' Serial specimen #1, #2 or #3: 1 Performed By: #### L 503.6620, L500.4050, L501.4020, L100.0100 ####[facility] [address] [place], [address] Chloride [Moles/Vol] 110 mmol/L High 98-107 [facility] Comment on above: Order Comment: 'TROP ' Serial specimen #1, #2 or #3: 1 Performed By: #### L 503.6620, L500.4050, L501.4020, L100.0100 ####[facility] [address] [place], [address] CO2 [Moles/Vol] 24.0 mmol/L Normal 21.0-32.0 [facility] Comment on above: Order Comment: 'TROP ' Serial specimen #1, #2 or #3: 1 Performed By: #### L 503.6620, L500.4050, L501.4020, L100.0100 ####[facility] [address] [place], [address] Creatinine [Mass/Vol] 2.66 mg/dL High 0.70-1.30 [facility] Comment on above: Order Comment: 'TROP ' Serial specimen #1, #2 or #3: 1 Result Comment: The validity of the calculated GFR GFRAA in patients over70 years has not been determined. Clinical correlation isessential. Performed By: #### L 503.6620, L500.4050, L501.4020, L100.0100 ####[facility] [address] [place], [address] ECRCL 22.99 ml/min Normal [facility] Comment on above: Order Comment: 'TROP ' Serial specimen #1, #2 or #3: 1 Performed By: #### L 503.6620, L500.4050, L501.4020, L100.0100 ####[facility] [address] [place], [address] EST GFR - AA 30 mL/min Low >60 [facility] Comment on above: Order Comment: 'TROP ' Serial specimen #1, #2 or #3: 1 Result Comment: Afri can [place] GFR Calc Performed By: #### L 503.6620, L500.4050, L501.4020, L100.0100 ####[facility] [address] [place], [address] GAP 7 Normal 5-15 [facility] Comment on above: Order Comment: 'TROP ' Serial specimen #1, #2 or #3: 1 Performed By: #### L 503.6620, L500.4050, L501.4020, L100.0100 ####[facility] [address] [place], [address] GFR/1.73 sq M.predicted among non-blacks MDRD (S/P/Bld) [Vol rate/Area] 25 mL/min/{1.73_m2} Low >60 [facility] Comment on above: Order Comment: 'TROP ' Serial specimen #1, #2 or #3: 1 Result Comment: Non- GFR Calc Performed By: #### L 503.6620, L500.4050, L501.4020, L100.0100 ####[facility] [address] [place], [address] Globulin (S) [Mass/Vol] 3.2 g/dL Normal 2.2-4.2 [facility] Comment on above: Order Comment: 'TROP ' Serial specimen #1, #2 or #3: 1 Performed By: #### L 503.6620, L500.4050, L501.4020, L100.0100 ####[facility] [address] [place], [address] Glucose [Mass/Vol] 116 mg/dL High 74-106 [facility] Comment on above: Order Comment: 'TROP ' Serial specimen #1, #2 or #3: 1 Result Comment: Fast ing Glucose result from 100 to 125 mg/dLsuggests IMPAIRED HOMEOSTASIS per A.D.A. criteria. Performed By: #### L 503.6620, L500.4050, L501.4020, L100.0100 ####[facility] [address] [place], [address] Potassium [Moles/Vol] 4.9 mmol/L Normal 3.5-5.1 [facility] Comment on above: Order Comment: 'TROP ' Serial specimen #1, #2 or #3: 1 Performed By: #### L 503.6620, L500.4050, L501.4020, L100.0100 ####[facility] [address] [place], [address] Sodium [Moles/Vol] 141 mmol/L Normal 136-145 [facility] Comment on above: Order Comment: 'TROP ' Serial specimen #1, #2 or #3: 1 Performed By: #### L 503.6620, L500.4050, L501.4020, L100.0100 ####[facility] [address] [place], [address] T PROT 6.8 g/dL Normal 6.4-8.2 [facility] Comment on above: Order Comment: 'TROP ' Serial specimen #1, #2 or #3: 1 Performed By: #### L 503.6620, L500.4050, L501.4020, L100.0100 ####[facility] [address] [place], [address] Urea nitrogen [Mass/Vol] 53 mg/dL High 7-18 [facility] Comment on above: Order Comment: 'TROP ' Serial specimen #1, #2 or #3: 1 Performed By: #### L 503.6620, L500.4050, L501.4020, L100.0100 ####[facility] [address] [place], [address] Emergency Department Summary on 01-05-2024 Emergency Department Summary Normal [facility] H AND P Exam - Hospitaliston 01-05-2024 H&P Exam - Hospitalist Normal [facility] HH, Hemoglobin AND Hematocri ton 01-05-2024 Hematocrit (Bld) [Volume fraction] 38.3 % Low 40-54 [facility] Comment on above: Performed By: #### L 100.0600 ####[facility] [address] [place], [address] Hemoglobin (Bld) [Mass/Vol] 12.8 g/dL Low 13.0-16.5 [facility] Comment on above: Performed By: #### L 100.0600 ####[facility] [address] [place], [address] L501.4020on 01-05-2024 TROPONIN-I HS 6 pg/mL Normal 3.0-78.0 [facility] Comment on above: Order Comment: 'TROP ' Serial specimen #1, #2 or #3: 1 Result Comment: Plea se Note: New Test Units and Gender Specific Reference Ranges. For more information see Policy Stat Procedure [place] High Sensitivity Troponin (TNIH) and attachments. Performed By: #### L 503.6620, L500.4050, L501.4020, L100.0100 ####[facility] [address] [place], [address] Magnesiumon 01-05-2024 Magnesium [Mass/Vol] 2.6 mg/dL Normal 1.6-2.6 [facility] Comment on above: Performed By: #### L 501.2300, L501.5200 ####[facility] [address] [place], [address] Osmolality, Urineon 01-05-20 24 OSMOLALITY,UR 451 mOsm/KG Normal [facility] Comment on above: Result Comment: Norm al Urine Reference Ranges Random: 50 - 1200 mOsm/kg H20 depending on fluid intake Random: >850 mOsm/kg after 12 hour fluid restriction 24 hour: 300 - 900 mOsm/kg H2O Performed By: #### L 501.7400 ####[facility] [address] [place], [address] Phosphoruson 01-05-2024 Phosphate [Mass/Vol] 4.5 mg/dL Normal 2.5-4.9 [facility] Comment on above: Performed By: #### L 501.2300, L501.5200 ####[facility] [address] [place], [address] Protein+Creatinine Ratio,Uri neon 01-05-2024 PROT:CRE RATIO 197 mg/g CRE Normal 0-200 [facility] Comment on above: Performed By: #### L 501.0900 ####[facility] [address] [place], [address] Protein (U) [Mass/Vol] 13.5 mg/dL High <11.9 [facility] Comment on above: Performed By: #### L 501.0900 ####[facility] [address] [place], [address] UR CREAT 68.70 mg/dL Normal NO RANGE EST. [facility] Comment on above: Performed By: #### L 501.0900 ####[facility] [address] [place], [address] Uric Acidon 01-05-2024 URIC 10.3 mg/dL High 3.5-7.2 [facility] Comment on above: Result Comment: The drugs N-Acetylcysteine and Metamizole may falselydepress this assay. Performed By: #### L 501.1400, L501.3620 ####[facility] [address] [place], [address] Urinalysis, Completeon 01-04 BACTERIA RARE Normal None Seen [facility] Comment on above: Order Comment: CLEAN CATCH Performed By: #### L 400.0001 ####[facility] [address] [place], [address] CAST,HYALINE 0-5 SEEN Normal 0-5 [facility] Comment on above: Order Comment: CLEAN CATCH Performed By: #### L 400.0001 ####[facility] [address] [place], [address] EPI,SQUAMOUS 0-5 SEEN Normal 0-5 [facility] Comment on above: Order Comment: CLEAN CATCH Performed By: #### L 400.0001 ####[facility] [address] [place], [address] Mucus Ql (Urine sed) 1+ /hpf Normal [facility] Comment on above: Order Comment: CLEAN CATCH Performed By: #### L 400.0001 ####[facility] [address] [place], [address] RBC 25-50 SEEN Normal 0-5 [facility] Comment on above: Order Comment: CLEAN CATCH Performed By: #### L 400.0001 ####[facility] [address] [place], [address] WBC 0-5 SEEN Normal 0-5 [facility] Comment on above: Order Comment: CLEAN CATCH Performed By: #### L 400.0001 ####[facility] [address] [place], [address] Venous Duplex US - Nikita Extre mon 01-05-2024 Venous Duplex US - Nikita Extrem Normal [facility] BNP,B-Type NATRIURETIC PEPTI Britt 12-31-2023 Natriuretic peptide B (Bld) [Mass/Vol] 178.4 pg/mL High 0-100 [facility] Comment on above: Order Comment: PER P T-TO DO ALL TESTS FOR BRIDGES Performed By: #### L 503.6620, L500.4100, L100.0100, L500.2500, L500.3400 ####[facility] [address] [place], [address] Basic Metabolic Profile (BMP )on 12-31-2023 BUN/CRE 22.0 RATIO High 10-20 [facility] Comment on above: Order Comment: PER P T-TO DO ALL TESTS FOR BRIDGES Performed By: #### L 503.6620, L500.4100, L100.0100, L500.2500, L500.3400 ####[facility] [address] [place], [address] CA,Total 8.9 mg/dL Normal 8.5-10.1 [facility] Comment on above: Order Comment: PER P T-TO DO ALL TESTS FOR BRIDGES Performed By: #### L 503.6620, L500.4100, L100.0100, L500.2500, L500.3400 ####[facility] [address] [place], [address] Chloride [Moles/Vol] 115 mmol/L High 98-107 [facility] Comment on above: Order Comment: PER P T-TO DO ALL TESTS FOR CYRUS Performed By: #### L 503.6620, L500.4100, L100.0100, L500.2500, L500.3400 ####[facility] [address] [place], [address] CO2 [Moles/Vol] 25.0 mmol/L Normal 21.0-32.0 [facility] Comment on above: Order Comment: PER P T-TO DO ALL TESTS FOR CYRUS Performed By: #### L 503.6620, L500.4100, L100.0100, L500.2500, L500.3400 ####[facility] [address] [place], [address] Creatinine [Mass/Vol] 1.27 mg/dL Normal 0.70-1.30 [facility] Comment on above: Order Comment: PER P T-TO DO ALL TESTS FOR CYRUS Result Comment: The validity of the calculated GFR GFRAA in patients over70 years has not been determined. Clinical correlation isessential. Performed By: #### L 503.6620, L500.4100, L100.0100, L500.2500, L500.3400 ####[facility] [address] [place], [address] EST GFR - AA 70 mL/min Normal >60 [facility] Comment on above: Order Comment: PER P T-TO DO ALL TESTS FOR CYRUS Result Comment: Afri can [place] GFR Calc Performed By: #### L 503.6620, L500.4100, L100.0100, L500.2500, L500.3400 ####[facility] [address] [place], [address] GAP 3 Low 5-15 [facility] Comment on above: Order Comment: PER P T-TO DO ALL TESTS FOR CYRUS Performed By: #### L 503.6620, L500.4100, L100.0100, L500.2500, L500.3400 ####[facility] [address] [place], [address] GFR/1.73 sq M.predicted among non-blacks MDRD (S/P/Bld) [Vol rate/Area] 58 mL/min/{1.73_m2} Low >60 [facility] Comment on above: Order Comment: PER P T-TO DO ALL TESTS FOR CYRUS Result Comment: Non- GFR Calc Performed By: #### L 503.6620, L500.4100, L100.0100, L500.2500, L500.3400 ####[facility] [address] [place], [address] Glucose [Mass/Vol] 92 mg/dL Normal 74-106 [facility] Comment on above: Order Comment: PER P T-TO DO ALL TESTS FOR CYRUS Performed By: #### L 503.6620, L500.4100, L100.0100, L500.2500, L500.3400 ####[facility] [address] [place], [address] Potassium [Moles/Vol] 4.7 mmol/L Normal 3.5-5.1 [facility] Comment on above: Order Comment: PER P T-TO DO ALL TESTS FOR BRIDGES Performed By: #### L 503.6620, L500.4100, L100.0100, L500.2500, L500.3400 ####[facility] [address] [place], [address] Sodium [Moles/Vol] 143 mmol/L Normal 136-145 [facility] Comment on above: Order Comment: PER P T-TO DO ALL TESTS FOR BRIDGES Performed By: #### L 503.6620, L500.4100, L100.0100, L500.2500, L500.3400 ####[facility] [address] [place], [address] Urea nitrogen [Mass/Vol] 28 mg/dL High 7-18 [facility] Comment on above: Order Comment: PER P T-TO DO ALL TESTS FOR BRIDGES Performed By: #### L 503.6620, L500.4100, L100.0100, L500.2500, L500.3400 ####[facility] [address] [place], [address] CBC W/Diff, Automatedon 08-0 -2023 Absolute Lymph 1.20 X10 3/uL Normal 0.83-4.51 [facility] Comment on above: Order Comment: PER P T-TO DO ALL TESTS FOR BRIDGES Performed By: #### L 503.6620, L500.4100, L100.0100, L500.2500, L500.3400 ####[facility] [address] [place], [address] Absolute Neut 7.1 X10 3/uL Normal 2.0-7.7 [facility] Comment on above: Order Comment: PER P T-TO DO ALL TESTS FOR BRIDGES Performed By: #### L 503.6620, L500.4100, L100.0100, L500.2500, L500.3400 ####[facility] [address] [place], [address] Basophils/100 WBC (Bld) 0.3 % Normal 0-1 [facility] Comment on above: Order Comment: PER P T-TO DO ALL TESTS FOR BRIDGES Performed By: #### L 503.6620, L500.4100, L100.0100, L500.2500, L500.3400 ####[facility] [address] [place], [address] Eosinophils/100 WBC (Bld) 0.2 % Normal 0-5 [facility] Comment on above: Order Comment: PER P T-TO DO ALL TESTS FOR BRIDGES Performed By: #### L 503.6620, L500.4100, L100.0100, L500.2500, L500.3400 ####[facility] [address] [place], [address] Erythrocyte distribution width (RBC) [Ratio] 14.2 % Normal 11.6-14.6 [facility] Comment on above: Order Comment: PER P T-TO DO ALL TESTS FOR BRIDGES Performed By: #### L 503.6620, L500.4100, L100.0100, L500.2500, L500.3400 ####[facility] [address] [place], [address] Hematocrit (Bld) [Volume fraction] 43.5 % Normal 40-54 [facility] Comment on above: Order Comment: PER P T-TO DO ALL TESTS FOR BRIDGES Performed By: #### L 503.6620, L500.4100, L100.0100, L500.2500, L500.3400 ####[facility] [address] [place], [address] Hemoglobin (Bld) [Mass/Vol] 14.2 g/dL Normal 13.0-16.5 [facility] Comment on above: Order Comment: PER P T-TO DO ALL TESTS FOR BRIDGES Performed By: #### L 503.6620, L500.4100, L100.0100, L500.2500, L500.3400 ####[facility] [address] [place], [address] IG% 0.800 Normal 0.0-0.9 [facility] Comment on above: Order Comment: PER P T-TO DO ALL TESTS FOR BRIDGES Result Comment: IG% - Immature Granulocytes (promyelocytes, myelocytes andmetamyelocytes) > 1% indicates that a LEFT SHIFT is Present. Performed By: #### L 503.6620, L500.4100, L100.0100, L500.2500, L500.3400 ####[facility] [address] [place], [address] Lymphocytes/100 WBC (Bld) 12.9 % Low 19-41 [facility] Comment on above: Order Comment: PER P T-TO DO ALL TESTS FOR BRIDGES Performed By: #### L 503.6620, L500.4100, L100.0100, L500.2500, L500.3400 ####[facility] [address] [place], [address] MCH (RBC) [Entitic mass] 31.3 pg Normal 27.0-32.0 [facility] Comment on above: Order Comment: PER P T-TO DO ALL TESTS FOR BRIDGES Performed By: #### L 503.6620, L500.4100, L100.0100, L500.2500, L500.3400 ####[facility] [address] [place], [address] MCHC (RBC) [Mass/Vol] 32.6 g/dL Normal 32-36 [facility] Comment on above: Order Comment: PER P T-TO DO ALL TESTS FOR BRIDGES Performed By: #### L 503.6620, L500.4100, L100.0100, L500.2500, L500.3400 ####[facility] [address] [place], [address] MCV (RBC) [Entitic vol] 96.0 fL High 80-94 [facility] Comment on above: Order Comment: PER P T-TO DO ALL TESTS FOR BRIDGES Performed By: #### L 503.6620, L500.4100, L100.0100, L500.2500, L500.3400 ####[facility] [address] [place], [address] Monocytes/100 WBC (Bld) 10.0 % Normal 0-10 [facility] Comment on above: Order Comment: PER P T-TO DO ALL TESTS FOR BRIDGES Performed By: #### L 503.6620, L500.4100, L100.0100, L500.2500, L500.3400 ####[facility] [address] [place], [address] Neutrophils/100 WBC (Bld) 75.8 % High 47-70 [facility] Comment on above: Order Comment: PER P T-TO DO ALL TESTS FOR BRIDGES Performed By: #### L 503.6620, L500.4100, L100.0100, L500.2500, L500.3400 ####[facility] [address] [place], [address] Nucleated RBC (Bld) [#/Vol] 0 10*3/uL Normal 0-5 [facility] Comment on above: Order Comment: PER P T-TO DO ALL TESTS FOR BRIDGES Performed By: #### L 503.6620, L500.4100, L100.0100, L500.2500, L500.3400 ####[facility] [address] [place], [address] Platelet mean volume (Bld) [Entitic vol] 9.4 fL Normal 6.2-12.0 [facility] Comment on above: Order Comment: PER P T-TO DO ALL TESTS FOR BRIDGES Performed By: #### L 503.6620, L500.4100, L100.0100, L500.2500, L500.3400 ####[facility] [address] [place], [address] Platelets (Bld) [#/Vol] 255 10*3/uL Normal 150-450 [facility] Comment on above: Order Comment: PER P T-TO DO ALL TESTS FOR BRIDGES Performed By: #### L 503.6620, L500.4100, L100.0100, L500.2500, L500.3400 ####[facility] [address] [place], [address] RBC (Bld) [#/Vol] 4.53 10*6/uL Low 4.6-6.2 [facility] Comment on above: Order Comment: PER P T-TO DO ALL TESTS FOR BRIDGES Performed By: #### L 503.6620, L500.4100, L100.0100, L500.2500, L500.3400 ####[facility] [address] [place], [address] RDW SD 49.7 fl High 35.1-43.9 [facility] Comment on above: Order Comment: PER P T-TO DO ALL TESTS FOR BRIDGES Performed By: #### L 503.6620, L500.4100, L100.0100, L500.2500, L500.3400 ####[facility] [address] [place], [address] WBC (Bld) [#/Vol] 9.3 10*3/uL Normal 4.4-11.0 [facility] Comment on above: Order Comment: PER P T-TO DO ALL TESTS FOR BRIDGES Performed By: #### L 503.6620, L500.4100, L100.0100, L500.2500, L500.3400 ####[facility] [address] [place], [address] Cardiology Visit Reporton Cardiology Visit Report Normal [facility] Chest PA and Lateralon 12-30 Chest PA and Lateral Normal [facility] Lipid Profileon 12-31-2023 Cholesterol [Mass/Vol] 259 mg/dL High 200 [facility] Comment on above: Order Comment: PER P T-TO DO ALL TESTS FOR BRIDGES Result Comment: <200 mg/dL Desirable 200-240 mg/dL Borderline >240 mg/dL High Risk Performed By: #### L 503.6620, L500.4100, L100.0100, L500.2500, L500.3400 ####[facility] [address] [place], [address] Cholesterol in HDL [Mass/Vol] 45 mg/dL Normal [facility] Comment on above: Order Comment: PER P T-TO DO ALL TESTS FOR CYRUS Result Comment: The drugs N-Acetylcysteine and Metamizole may falselydepress this assay. Reference Range HDL <40 mg/dL Low HDL Cholesterol HDL >or= 60 mg/dL High HDL Cholesterol Performed By: #### L 503.6620, L500.4100, L100.0100, L500.2500, L500.3400 ####[facility] [address] [place], [address] Cholesterol in LDL [Mass/Vol] 176 mg/dL High 0-130 [facility] Comment on above: Order Comment: PER P T-TO DO ALL TESTS FOR CYRUS Performed By: #### L 503.6620, L500.4100, L100.0100, L500.2500, L500.3400 ####[facility] [address] [place], [address] Cholesterol in VLDL [Mass/Vol] 38 mg/dL Normal 5-40 [facility] Comment on above: Order Comment: PER P T-TO DO ALL TESTS FOR CYRUS Performed By: #### L 503.6620, L500.4100, L100.0100, L500.2500, L500.3400 ####[facility] [address] [place], [address] Triglyceride [Mass/Vol] 192 mg/dL Normal [facility] Comment on above: Order Comment: PER P T-TO DO ALL TESTS FOR CYRUS Result Comment: The drugs N-Acetylcysteine and Metamizole may falselydepress this assay.Serum Triglycerides Reference Interval Normal <150 mg/dL Borderline high 150 - 199 mg/dL High 200 - 499 mg/dL Very High > or = 500 mg/dL Performed By: #### L 503.6620, L500.4100, L100.0100, L500.2500, L500.3400 ####[facility] [address] [place], [address] Liver Profileon 12-31-2023 Albumin [Mass/Vol] 3.4 g/dL Normal 3.2-5.0 [facility] Comment on above: Order Comment: PER P T-TO DO ALL TESTS FOR BRIDGES Performed By: #### L 503.6620, L500.4100, L100.0100, L500.2500, L500.3400 ####[facility] [address] [place], [address] ALK P 66 U/L Normal 45-117 [facility] Comment on above: Order Comment: PER P T-TO DO ALL TESTS FOR BRIDGES Performed By: #### L 503.6620, L500.4100, L100.0100, L500.2500, L500.3400 ####[facility] [address] [place], [address] ALT [Catalytic activity/Vol] 30 U/L Normal 16-61 [facility] Comment on above: Order Comment: PER P T-TO DO ALL TESTS FOR BRIDGES Performed By: #### L 503.6620, L500.4100, L100.0100, L500.2500, L500.3400 ####[facility] [address] [place], [address] AST [Catalytic activity/Vol] 15 U/L Normal 15-37 [facility] Comment on above: Order Comment: PER P T-TO DO ALL TESTS FOR BRIDGES Performed By: #### L 503.6620, L500.4100, L100.0100, L500.2500, L500.3400 ####[facility] [address] [place], [address] Bilirubin [Mass/Vol] 1.40 mg/dL High 0.20-1.00 [facility] Comment on above: Order Comment: PER P T-TO DO ALL TESTS FOR BRIDGES Result Comment: For patients on eltrombopag therapy, use of Dimension [place] TBIL is not recommended. Performed By: #### L 503.6620, L500.4100, L100.0100, L500.2500, L500.3400 ####[facility] [address] [place], [address] Bilirubin.direct [Mass/Vol] 0.22 mg/dL Normal 0.00-0.30 [facility] Comment on above: Order Comment: PER P T-TO DO ALL TESTS FOR BRIDGES Performed By: #### L 503.6620, L500.4100, L100.0100, L500.2500, L500.3400 ####[facility] [address] [place], [address] Globulin (S) [Mass/Vol] 3.1 g/dL Normal 2.2-4.2 [facility] Comment on above: Order Comment: PER P T-TO DO ALL TESTS FOR BRIDGES Performed By: #### L 503.6620, L500.4100, L100.0100, L500.2500, L500.3400 ####[facility] [address] [place], [address] T PROT 6.5 g/dL Normal 6.4-8.2 [facility] Comment on above: Order Comment: PER P T-TO DO ALL TESTS FOR BRIDGES Performed By: #### L 503.6620, L500.4100, L100.0100, L500.2500, L500.3400 ####[facility] [address] [place], [address] L/S Spine Bending Flex/[place] 12-30-2023 L/S Spine Bending Flex/Ext Normal [facility] Orthopedic Visit Reporton Orthopedic Visit Report Normal [facility] CBC W/Diff, Automatedon 12-01 Absolute Lymph 1.34 X10 3/uL Normal 0.83-4.51 [facility] Comment on above: Performed By: #### L 100.0100, L500.4050, L506.1000, L501.9520 ####[facility] [address] [place], [address] Absolute Neut 6.7 X10 3/uL Normal 2.0-7.7 [facility] Comment on above: Performed By: #### L 100.0100, L500.4050, L506.1000, L501.9520 ####[facility] [address] [place], [address] Basophils/100 WBC (Bld) 0.3 % Normal 0-1 [facility] Comment on above: Performed By: #### L 100.0100, L500.4050, L506.1000, L501.9520 ####[facility] [address] [place], [address] Eosinophils/100 WBC (Bld) 0.2 % Normal 0-5 [facility] Comment on above: Performed By: #### L 100.0100, L500.4050, L506.1000, L501.9520 ####[facility] [address] [place], [address] Erythrocyte distribution width (RBC) [Ratio] 13.8 % Normal 11.6-14.6 [facility] Comment on above: Performed By: #### L 100.0100, L500.4050, L506.1000, L501.9520 ####[facility] [address] [place], [address] Hematocrit (Bld) [Volume fraction] 41.2 % Normal 40-54 [facility] Comment on above: Performed By: #### L 100.0100, L500.4050, L506.1000, L501.9520 ####[facility] [address] [place], [address] Hemoglobin (Bld) [Mass/Vol] 13.6 g/dL Normal 13.0-16.5 [facility] Comment on above: Performed By: #### L 100.0100, L500.4050, L506.1000, L501.9520 ####[facility] [address] [place], [address] IG% 1.100 High 0.0-0.9 [facility] Comment on above: Result Comment: IG% - Immature Granulocytes (promyelocytes, myelocytes andmetamyelocytes) > 1% indicates that a LEFT SHIFT is Present. Performed By: #### L 100.0100, L500.4050, L506.1000, L501.9520 ####[facility] [address] [place], [address] Lymphocytes/100 WBC (Bld) 15.0 % Low 19-41 [facility] Comment on above: Performed By: #### L 100.0100, L500.4050, L506.1000, L501.9520 ####[facility] [address] [place], [address] MCH (RBC) [Entitic mass] 31.3 pg Normal 27.0-32.0 [facility] Comment on above: Performed By: #### L 100.0100, L500.4050, L506.1000, L501.9520 ####[facility] [address] [place], [address] MCHC (RBC) [Mass/Vol] 33.0 g/dL Normal 32-36 [facility] Comment on above: Performed By: #### L 100.0100, L500.4050, L506.1000, L501.9520 ####[facility] [address] [place], [address] MCV (RBC) [Entitic vol] 94.7 fL High 80-94 [facility] Comment on above: Performed By: #### L 100.0100, L500.4050, L506.1000, L501.9520 ####[facility] [address] [place], [address] Monocytes/100 WBC (Bld) 8.9 % Normal 0-10 [facility] Comment on above: Performed By: #### L 100.0100, L500.4050, L506.1000, L501.9520 ####[facility] [address] [place], [address] Neutrophils/100 WBC (Bld) 74.5 % High 47-70 [facility] Comment on above: Performed By: #### L 100.0100, L500.4050, L506.1000, L501.9520 ####[facility] [address] [place], [address] Nucleated RBC (Bld) [#/Vol] 0 10*3/uL Normal 0-5 [facility] Comment on above: Performed By: #### L 100.0100, L500.4050, L506.1000, L501.9520 ####[facility] [address] [place], [address] Platelet mean volume (Bld) [Entitic vol] 9.5 fL Normal 6.2-12.0 [facility] Comment on above: Performed By: #### L 100.0100, L500.4050, L506.1000, L501.9520 ####[facility] [address] [place], [address] Platelets (Bld) [#/Vol] 236 10*3/uL Normal 150-450 [facility] Comment on above: Performed By: #### L 100.0100, L500.4050, L506.1000, L501.9520 ####[facility] [address] [place], [address] RBC (Bld) [#/Vol] 4.35 10*6/uL Low 4.6-6.2 [facility] Comment on above: Performed By: #### L 100.0100, L500.4050, L506.1000, L501.9520 ####[facility] [address] [place], [address] RDW SD 47.7 fl High 35.1-43.9 [facility] Comment on above: Performed By: #### L 100.0100, L500.4050, L506.1000, L501.9520 ####[facility] [address] [place], [address] WBC (Bld) [#/Vol] 9.0 10*3/uL Normal 4.4-11.0 [facility] Comment on above: Performed By: #### L 100.0100, L500.4050, L506.1000, L501.9520 ####[facility] [address] [place], [address] Comprehensive Metabolic [facility] 12-29-2023 Albumin [Mass/Vol] 3.2 g/dL Normal 3.2-5.0 [facility] Comment on above: Performed By: #### L 100.0100, L500.4050, L506.1000, L501.9520 ####[facility] [address] [place], [address] Albumin/Globulin [Mass ratio] 1.1 {ratio} Normal 0.9-2.4 [facility] Comment on above: Performed By: #### L 100.0100, L500.4050, L506.1000, L501.9520 ####[facility] [address] [place], [address] ALK P 60 U/L Normal 45-117 [facility] Comment on above: Performed By: #### L 100.0100, L500.4050, L506.1000, L501.9520 ####[facility] [address] [place], [address] ALT [Catalytic activity/Vol] 26 U/L Normal 16-61 [facility] Comment on above: Performed By: #### L 100.0100, L500.4050, L506.1000, L501.9520 ####[facility] [address] [place], [address] AST [Catalytic activity/Vol] 18 U/L Normal 15-37 [facility] Comment on above: Performed By: #### L 100.0100, L500.4050, L506.1000, L501.9520 ####[facility] [address] [place], [address] Bilirubin [Mass/Vol] 1.40 mg/dL High 0.20-1.00 [facility] Comment on above: Result Comment: For patients on eltrombopag therapy, use of Dimension [place] TBIL is not recommended. Performed By: #### L 100.0100, L500.4050, L506.1000, L501.9520 ####[facility] [address] [place], [address] BUN/CRE 22.4 RATIO High 10-20 [facility] Comment on above: Performed By: #### L 100.0100, L500.4050, L506.1000, L501.9520 ####[facility] [address] [place], [address] CA,Total 8.8 mg/dL Normal 8.5-10.1 [facility] Comment on above: Performed By: #### L 100.0100, L500.4050, L506.1000, L501.9520 ####[facility] [address] [place], [address] Chloride [Moles/Vol] 110 mmol/L High 98-107 [facility] Comment on above: Performed By: #### L 100.0100, L500.4050, L506.1000, L501.9520 ####[facility] [address] [place], [address] CO2 [Moles/Vol] 24.0 mmol/L Normal 21.0-32.0 [facility] Comment on above: Performed By: #### L 100.0100, L500.4050, L506.1000, L501.9520 ####[facility] [address] [place], [address] Creatinine [Mass/Vol] 1.34 mg/dL High 0.70-1.30 [facility] Comment on above: Result Comment: The validity of the calculated GFR GFRAA in patients over70 years has not been determined. Clinical correlation isessential. Performed By: #### L 100.0100, L500.4050, L506.1000, L501.9520 ####[facility] [address] [place], [address] EST GFR - AA 66 mL/min Normal >60 [facility] Comment on above: Result Comment: Afri can [place] GFR Calc Performed By: #### L 100.0100, L500.4050, L506.1000, L501.9520 ####[facility] [address] [place], [address] GAP 6 Normal 5-15 [facility] Comment on above: Performed By: #### L 100.0100, L500.4050, L506.1000, L501.9520 ####[facility] [address] [place], [address] GFR/1.73 sq M.predicted among non-blacks MDRD (S/P/Bld) [Vol rate/Area] 54 mL/min/{1.73_m2} Low >60 [facility] Comment on above: Result Comment: Non- GFR Calc Performed By: #### L 100.0100, L500.4050, L506.1000, L501.9520 ####[facility] [address] [place], [address] Globulin (S) [Mass/Vol] 3.0 g/dL Normal 2.2-4.2 [facility] Comment on above: Performed By: #### L 100.0100, L500.4050, L506.1000, L501.9520 ####[facility] [address] [place], [address] Glucose [Mass/Vol] 94 mg/dL Normal 74-106 [facility] Comment on above: Performed By: #### L 100.0100, L500.4050, L506.1000, L501.9520 ####[facility] [address] [place], [address] Potassium [Moles/Vol] 4.4 mmol/L Normal 3.5-5.1 [facility] Comment on above: Performed By: #### L 100.0100, L500.4050, L506.1000, L501.9520 ####[facility] [address] [place], [address] Sodium [Moles/Vol] 140 mmol/L Normal 136-145 [facility] Comment on above: Performed By: #### L 100.0100, L500.4050, L506.1000, L501.9520 ####[facility] [address] [place], [address] T PROT 6.2 g/dL Low 6.4-8.2 [facility] Comment on above: Performed By: #### L 100.0100, L500.4050, L506.1000, L501.9520 ####[facility] [address] [place], [address] Urea nitrogen [Mass/Vol] 30 mg/dL High 7-18 [facility] Comment on above: Performed By: #### L 100.0100, L500.4050, L506.1000, L501.9520 ####[facility] [address] [place], [address] Thyroid Stim Hormone (TSH)on 12-29-2023 TSH 0.94 uIU/mL Normal 0.358-3.74 [facility] Comment on above: Performed By: #### L 100.0100, L500.4050, L506.1000, L501.9520 ####[facility] [address] [place], [address] Vitamin D,25 Hydroxyon 12-28 Vitamin D 25-OH 66.2 ng/mL Normal [facility] Comment on above: Result Comment: Maya min D 25(OH) Status Range Deficiency <20 ng/mL (50nmol/L) Insufficiency 20 - 30 ng/mL (50 - 75 nmol/L) Sufficiency 30 - 100 ng/mL (75 - 250 nmol/L) Toxicity >100 ng/mL (>250 nmol/L) Performed By: #### L 100.0100, L500.4050, L506.1000, L501.9520 ####[facility] [address] [place], [address] M100.678on 12-25-2023 M100.678 Normal Reference Ran ge = Negative FLUABV+SARS-CoV-2+RSV Pnl Resp [place]+probe GeneXpert Instrument, PCR method SARS-CoV-2 (COVID 19) Negative INFLUENZA A Negative INFLUENZA B Negative RSV PCR Negative Normal [facility] Comment on above: Performed By: #### M 100.678 ####[facility] [address] [facility] [place], [address] Urine Cultureon 12-17-2023 URC Below infection leve l. Gram negative prasanth Dafter Count <1000 Normal [facility] Comment on above: Performed By: #### M 100.2200 ####[facility] [address] [facility] [place], [address] Urine Cultureon 12-11-2023 URC Normal [facility] Comment on above: Performed By: #### M 100.2200 ####[facility] [address] [place], [address] Dexa Bone Density Studyon Dexa Bone Density Study Normal [facility] BNP,B-Type NATRIURETIC PEPTI Britt 12-09-2023 Natriuretic peptide B (Bld) [Mass/Vol] 203.9 pg/mL High 0-100 [facility] Comment on above: Performed By: #### L 500.2500, L100.0100, L503.6620 ####[facility] [address] [place], [address] Basic Metabolic Profile (BMP )on 12-09-2023 BUN/CRE 30.2 RATIO High 10-20 [facility] Comment on above: Performed By: #### L 500.2500, L100.0100, L503.6620 ####[facility] [address] [place], [address] CA,Total 9.1 mg/dL Normal 8.5-10.1 [facility] Comment on above: Performed By: #### L 500.2500, L100.0100, L503.6620 ####[facility] [address] [place], [address] Chloride [Moles/Vol] 110 mmol/L High 98-107 [facility] Comment on above: Performed By: #### L 500.2500, L100.0100, L503.6620 ####[facility] [address] [place], [address] CO2 [Moles/Vol] 26.0 mmol/L Normal 21.0-32.0 [facility] Comment on above: Performed By: #### L 500.2500, L100.0100, L503.6620 ####[facility] [address] [place], [address] Creatinine [Mass/Vol] 1.29 mg/dL Normal 0.70-1.30 [facility] Comment on above: Result Comment: The validity of the calculated GFR GFRAA in patients over70 years has not been determined. Clinical correlation isessential. Performed By: #### L 500.2500, L100.0100, L503.6620 ####[facility] [address] [place], [address] EST GFR - AA 69 mL/min Normal >60 [facility] Comment on above: Result Comment: Afri can [place] GFR Calc Performed By: #### L 500.2500, L100.0100, L503.6620 ####[facility] [address] [place], [address] GAP 5 Normal 5-15 [facility] Comment on above: Performed By: #### L 500.2500, L100.0100, L503.6620 ####[facility] [address] [place], [address] GFR/1.73 sq M.predicted among non-blacks MDRD (S/P/Bld) [Vol rate/Area] 57 mL/min/{1.73_m2} Low >60 [facility] Comment on above: Result Comment: Non- GFR Calc Performed By: #### L 500.2500, L100.0100, L503.6620 ####[facility] [address] [place], [address] Glucose [Mass/Vol] 102 mg/dL Normal 74-106 [facility] Comment on above: Result Comment: Fast ing Glucose result from 100 to 125 mg/dLsuggests IMPAIRED HOMEOSTASIS per A.D.A. criteria. Performed By: #### L 500.2500, L100.0100, L503.6620 ####[facility] [address] [place], [address] Potassium [Moles/Vol] 4.5 mmol/L Normal 3.5-5.1 [facility] Comment on above: Performed By: #### L 500.2500, L100.0100, L503.6620 ####[facility] [address] [place], [address] Sodium [Moles/Vol] 141 mmol/L Normal 136-145 [facility] Comment on above: Performed By: #### L 500.2500, L100.0100, L503.6620 ####[facility] [address] [place], [address] Urea nitrogen [Mass/Vol] 39 mg/dL High 7-18 [facility] Comment on above: Performed By: #### L 500.2500, L100.0100, L503.6620 ####[facility] [address] [place], [address] CBC W/Diff, Automatedon 07- 0-2024 Absolute Lymph 1.01 X10 3/uL Normal 0.83-4.51 [facility] Comment on above: Performed By: #### L 500.2500, L100.0100, L503.6620 ####[facility] [address] [place], [address] Absolute Neut 5.3 X10 3/uL Normal 2.0-7.7 [facility] Comment on above: Performed By: #### L 500.2500, L100.0100, L503.6620 ####[facility] [address] [place], [address] Basophils/100 WBC (Bld) 0.3 % Normal 0-1 [facility] Comment on above: Performed By: #### L 500.2500, L100.0100, L503.6620 ####[facility] [address] [place], [address] Eosinophils/100 WBC (Bld) 0.6 % Normal 0-5 [facility] Comment on above: Performed By: #### L 500.2500, L100.0100, [id number] ####[facility] [address] [place], [address] Erythrocyte distribution width (RBC) [Ratio] 13.6 % Normal 11.6-14.6 [facility] Comment on above: Performed By: #### L 500.2500, L100.0100, [id number] ####[facility] [address] [place], [address] Hematocrit (Bld) [Volume fraction] 41.8 % Normal 40-54 [facility] Comment on above: Performed By: #### L 500.2500, L100.0100, [id number] ####[facility] [address] [place], [address] Hemoglobin (Bld) [Mass/Vol] 13.8 g/dL Normal 13.0-16.5 [facility] Comment on above: Performed By: #### L 500.2500, L100.0100, [id number] ####[facility] [address] [place], [address] IG% 0.600 Normal 0.0-0.9 [facility] Comment on above: Result Comment: IG% - Immature Granulocytes (promyelocytes, myelocytes andmetamyelocytes) > 1% indicates that a LEFT SHIFT is Present. Performed By: #### L 500.2500, L100.0100, [id number] ####[facility] [address] [place], [address] Lymphocytes/100 WBC (Bld) 14.2 % Low 19-41 [facility] Comment on above: Performed By: #### L 500.2500, L100.0100, [id number] ####[facility] [address] [place], [address] MCH (RBC) [Entitic mass] 31.0 pg Normal 27.0-32.0 [facility] Comment on above: Performed By: #### L 500.2500, L100.0100, [id number] ####[facility] [address] [place], [address] MCHC (RBC) [Mass/Vol] 33.0 g/dL Normal 32-36 [facility] Comment on above: Performed By: #### L 500.2500, L100.0100, [id number] ####[facility] [address] [place], [address] MCV (RBC) [Entitic vol] 93.9 fL Normal 80-94 [facility] Comment on above: Performed By: #### L 500.2500, L100.0100, [id number] ####[facility] [address] [place], [address] Monocytes/100 WBC (Bld) 9.7 % Normal 0-10 [facility] Comment on above: Performed By: #### L 500.2500, L100.0100, [id number] ####[facility] [address] [place], [address] Neutrophils/100 WBC (Bld) 74.6 % High 47-70 [facility] Comment on above: Performed By: #### L 500.2500, L100.0100, [id number] ####[facility] [address] [place], [address] Nucleated RBC (Bld) [#/Vol] 0 10*3/uL Normal 0-5 [facility] Comment on above: Performed By: #### L 500.2500, L100.0100, [id number] ####[facility] [address] [place], [address] Platelet mean volume (Bld) [Entitic vol] 9.5 fL Normal 6.2-12.0 [facility] Comment on above: Performed By: #### L 500.2500, L100.0100, [id number] ####[facility] [address] [place], [address] Platelets (Bld) [#/Vol] 260 10*3/uL Normal 150-450 [facility] Comment on above: Performed By: #### L 500.2500, L100.0100, [id number] ####[facility] [address] [place], [address] RBC (Bld) [#/Vol] 4.45 10*6/uL Low 4.6-6.2 [facility] Comment on above: Performed By: #### L 500.2500, L100.0100, [id number] ####[facility] [address] [place], [address] RDW SD 46.5 fl High 35.1-43.9 [facility] Comment on above: Performed By: #### L 500.2500, L100.0100, [id number] ####[facility] [address] [place], [address] WBC (Bld) [#/Vol] 7.1 10*3/uL Normal 4.4-11.0 [facility] Comment on above: Performed By: #### L 500.2500, L100.0100, [id number] ####[facility] [address] [place], [address] Spine Lumbar (Routine)on Spine Lumbar (Routine) Normal [facility] Absolute lymphocyte countOrd ered By: Jose Hooks on 10-06-2023 Lymphocytes Auto (Unsp spec) [#/Vol] 1.41 10*3/uL 0.83-4.51 [facility] Automated lymphocyte count a s percentage of total leukocytesOrdered By: Jose Hooks on 10-06-2023 Lymphocytes/100 WBC Auto (Unsp spec) 17.4 % 19-41 [facility] Basophil percentageOrdered B y: Jose Hooks on 10-06-2023 Basophils/100 WBC (Bld) 1.0 % 0-1 [facility] Chloride [Moles/Vol] 107 mmol/L 98-107 [facility] Eosinophils/100 WBC (Bld) 2.0 % 0-5 [facility] Glucose [Mass/Vol] 92 mg/dL 74-106 [facility] Hemoglobin (Bld) [Mass/Vol] 14.1 g/dL 13.0-16.5 [facility] Monocytes/100 WBC (Bld) 8.5 % 0-10 [facility] Neutrophils (Bld) [#/Vol] 5.6 10*3/uL 2.0-7.7 [facility] Neutrophils/100 WBC (Bld) 68.6 % 47-70 [facility] Potassium [Moles/Vol] 3.8 mmol/L 3.5-5.1 [facility] Sodium [Moles/Vol] 139 mmol/L 136-145 [facility] WBC (Bld) [#/Vol] 8.1 10*3/uL 4.4-11.0 [facility] Culture, urineOrdered By: Xu Hooks on 10-06-2023 Bacteria identified Cx Nom (U) Culture exhibits no growth. [facility] Determination of erythrocyte mean corpuscular volume (MCV)Ordered By: Jose Hooks on 10-06-2023 MCV (RBC) [Entitic vol] 93.8 fL 80-94 [facility] Erythrocyte distribution wid th ratioOrdered By: Jose Hooks on 10-06-2023 Erythrocyte distribution width (RBC) [Ratio] 13.0 % 11.6-14.6 [facility] Erythrocyte distribution wid th standard deviationOrdered By: Jose Hooks on 10-06-2023 Erythrocyte distribution width (RBC) [Entitic vol] 44.3 fL 35.1-43.9 [facility] Hematocrit Auto (Bld) [Volum e fraction]Ordered By: Jose Hooks on 10-06-2023 Hematocrit (Bld) [Volume fraction] 43.9 % 40-54 [facility] Immature granulocytes/100 WB C Auto (Bld)Ordered By: Jose Hooks on 10-06-2023 Immature granulocytes/100 WBC (Bld) 2.500 % 0.0-0.9 [facility] Comment on above: IG% - Immature Granu locytes (promyelocytes, myelocytes and metamyelocytes) > 1% indicates that a LEFT SHIFT is Present. Laboratory - Chemistry and C hemistry - challengeOrdered By: Jose Hooks on 10-06-2023 CO2 [Moles/Vol] 27.0 mmol/L 21.0-32.0 [facility] Urea nitrogen/Creatinine [Mass ratio] 17.7 mg/mg 10-20 [facility] Laboratory - Hematology and Cell countsOrdered By: Jose Hooks on 10-06-2023 MCH (RBC) [Entitic mass] 30.1 pg 27.0-32.0 [facility] MCHC (RBC) [Mass/Vol] 32.1 g/dL 32-36 [facility] Nucleated RBC/100 WBC (Bld) [Ratio] 0 % 0-5 [facility] Platelet mean volume (Bld) [Entitic vol] 9.8 fL 6.2-12.0 [facility] Platelets (Bld) [#/Vol] 316 10*3/uL 150-450 [facility] No Panel InformationOrdered By: Jose Hooks on 10-06-2023 Estimated GFR (MDRD) Amer 68 mL/min >60 [facility] Comment on above: GFR Calc Estimated GFR (MDRD) Non-Af Amer 56 mL/min >60 [facility] Comment on above: Non- GFR Calc RBC Auto (Bld) [#/Vol]Ordere d By: Jose Hooks on 10-06-2023 RBC (Bld) [#/Vol] 4.68 10*6/uL 4.6-6.2 [facility] Serum or plasma calcium ambar urement (mass/volume)Ordered By: Jose Hooks on 10-06-2023 Calcium [Mass/Vol] 8.9 mg/dL 8.5-10.1 [facility] Serum or plasma creatinine m easurement (mass/volume)Ordered By: Jose Hooks on 10-06-2023 Creatinine [Mass/Vol] 1.30 mg/dL 0.70-1.30 [facility] Comment on above: The validity of the calculated GFR & GFRAA in patients over 70 years has not been determined. Clinical correlation is essential. Serum or plasma urea nitroge n measurement (mass/volume)Ordered By: Jose Hooks on 10-06-2023 Urea nitrogen [Mass/Vol] 23 mg/dL 7-18 [facility] Thin prep Papanicolaou smear with manual screeningOrdered By: Jose Hooks on 10-06-2023 Thin prep Papanicolaou smear with manual screening 5 5-15 [facility] Basophil percentageOrdered B y: Jay Wright on 10-03-2023 Chloride [Moles/Vol] 114 mmol/L 98-107 [facility] Glucose [Mass/Vol] 78 mg/dL 74-106 [facility] Hemoglobin (Bld) [Mass/Vol] 11.8 g/dL 13.0-16.5 [facility] Potassium [Moles/Vol] 3.7 mmol/L 3.5-5.1 [facility] Sodium [Moles/Vol] 144 mmol/L 136-145 [facility] WBC (Bld) [#/Vol] 8.2 10*3/uL 4.4-11.0 [facility] Determination of erythrocyte mean corpuscular volume (MCV)Ordered By: Jay Wright on 10-03-2023 MCV (RBC) [Entitic vol] 95.5 fL 80-94 [facility] Erythrocyte distribution wid th ratioOrdered By: Jay Wright on 10-03-2023 Erythrocyte distribution width (RBC) [Ratio] 13.1 % 11.6-14.6 [facility] Erythrocyte distribution wid th standard deviationOrdered By: Jay Wright on 10-03-2023 Erythrocyte distribution width (RBC) [Entitic vol] 45.5 fL 35.1-43.9 [facility] Hematocrit Auto (Bld) [Volum e fraction]Ordered By: Jay Wright on 10-03-2023 Hematocrit (Bld) [Volume fraction] 36.2 % 40-54 [facility] Laboratory - Chemistry and C hemistry - challengeOrdered By: Jay Wright on 10-03-2023 CO2 [Moles/Vol] 27.0 mmol/L 21.0-32.0 [facility] Urea nitrogen/Creatinine [Mass ratio] 15.6 mg/mg 10-20 [facility] - Hematology and Cell countsOrdered By: Jay Wright on 10-03-2023 MCH (RBC) [Entitic mass] 31.1 pg 27.0-32.0 [facility] MCHC (RBC) [Mass/Vol] 32.6 g/dL 32-36 [facility] Platelet mean volume (Bld) [Entitic vol] 9.7 fL 6.2-12.0 [facility] Platelets (Bld) [#/Vol] 208 10*3/uL 150-450 [facility] No Panel InformationOrdered By: Jay Wright on 10-03-2023 Estimated Creatinine Clearance Calc 56.61 ml/min [facility] Estimated GFR (MDRD) Amer 84 mL/min >60 [facility] Comment on above: GFR Calc Estimated GFR (MDRD) Non-Af Amer 69 mL/min >60 [facility] Comment on above: Non- GFR Calc RBC Auto (Bld) [#/Vol]Ordere d By: Jay Wright on 10-03-2023 RBC (Bld) [#/Vol] 3.79 10*6/uL 4.6-6.2 [facility] Serum or plasma calcium ambar urement (mass/volume)Ordered By: Jay Wright on 10-03-2023 Calcium [Mass/Vol] 8.1 mg/dL 8.5-10.1 [facility] Serum or plasma creatinine m easurement (mass/volume)Ordered By: Jay Wright on 10-03-2023 Creatinine [Mass/Vol] 1.09 mg/dL 0.70-1.30 [facility] Comment on above: The validity of the calculated GFR & GFRAA in patients over 70 years has not been determined. Clinical correlation is essential. Serum or plasma urea nitroge n measurement (mass/volume)Ordered By: Jay Wright on 10-03-2023 Urea nitrogen [Mass/Vol] 17 mg/dL 7-18 [facility] Thin prep Papanicolaou smear with manual screeningOrdered By: Jay Wright on 10-03-2023 Thin prep Papanicolaou smear with manual screening 3 5-15 [facility] Basophil percentageOrdered B y: Jay Wright on 10-02-2023 Bilirubin [Mass/Vol] 0.70 mg/dL 0.20-1.00 [facility] Comment on above: For patients on eltr ombopag therapy, use of Dimension [place] TBIL is not recommended. Protein [Mass/Vol] 5.1 g/dL 6.4-8.2 [facility] Direct bilirubinOrdered By: Jay Wright on 10-02-2023 Bilirubin.direct [Mass/Vol] 0.21 mg/dL 0.00-0.30 [facility] Laboratory - Chemistry and C hemistry - challengeOrdered By: Jay Wright on 10-02-2023 ALP [Catalytic activity/Vol] 153 U/L 45-117 [facility] ALT [Catalytic activity/Vol] 110 U/L 16-61 [facility] Globulin (S) [Mass/Vol] 3.0 g/dL 2.2-4.2 [facility] Thin prep Papanicolaou smear with manual screeningOrdered By: Jay Wright on 10-02-2023 Thin prep Papanicolaou smear with manual screening 2.1 g/dL 3.2-5.0 [facility] Thin prep Papanicolaou smear with manual screening 74 U/L 15-37 [facility] Absolute lymphocyte countOrd ered By: Galilea Moncada on 10-01-2023 Lymphocytes Auto (Unsp spec) [#/Vol] 0.71 10*3/uL 0.83-4.51 [facility] Automated lymphocyte count a s percentage of total leukocytesOrdered By: Galilea Moncada on 10-01-2023 Lymphocytes/100 WBC Auto (Unsp spec) 3.0 % 19-41 [facility] Basophil percentageOrdered B y: Jay Wright on 10-01-2023 Lactate [Moles/Vol] 2.4 mmol/L 0.4-2.0 [facility] Comment on above: Critical Result(s) C alled at: 13:55:22 10/01/2023 by: BINDU BISHOP to Artemio Clement. Results read back by same. Basophil percentageOrdered B y: Galilea Moncada on 10-01-2023 Basophil percentage 4.4 mg/dL 2.5-4.9 [facility] Basophils/100 WBC (Bld) 0.3 % 0-1 [facility] Eosinophils/100 WBC (Bld) 0.0 % 0-5 [facility] Monocytes/100 WBC (Bld) 5.8 % 0-10 [facility] Neutrophils (Bld) [#/Vol] 20.9 10*3/uL 2.0-7.7 [facility] Neutrophils/100 WBC (Bld) 89.5 % 47-70 [facility] Blood manual differential co mment interpretation (narrative result)Ordered By: Galilea Moncada on 10-01-2023 Manual differential comment Joe (Bld) [Interp] SCANNED [facility] Comment on above: NEUTROPHILLIA PRESEN T Immature granulocytes/100 WB C Auto (Bld)Ordered By: Galilea Moncada on 10-01-2023 Immature granulocytes/100 WBC (Bld) 1.400 % 0.0-0.9 [facility] Comment on above: IG% - Immature Granu locytes (promyelocytes, myelocytes and metamyelocytes) > 1% indicates that a LEFT SHIFT is Present. Laboratory - Chemistry and C hemistry - challengeOrdered By: Galilea Moncada on 10-01-2023 Albumin/Globulin [Mass ratio] 0.8 {ratio} 0.9-2.4 [facility] Magnesium [Mass/Vol] 1.9 mg/dL 1.6-2.6 [facility] Laboratory - Hematology and Cell countsOrdered By: Galilea Moncada on 10-01-2023 Nucleated RBC/100 WBC (Bld) [Ratio] 0 % 0-5 [facility] - Microbiology an d Antimicrobial susceptibilityOrdered By: Jay Wright on 10-01-2023 Bacteria identified Cx Nom (Bld) No growth in 5 days. [facility] Absolute lymphocyte countOrd ered By: Barbara Mathew on 09-30-2023 Lymphocytes Auto (Unsp spec) [#/Vol] 0.89 10*3/uL 0.83-4.51 [facility] Automated lymphocyte count a s percentage of total leukocytesOrdered By: Barbara Mathew on 09-30-2023 Lymphocytes/100 WBC Auto (Unsp spec) 6.9 % 19-41 [facility] Basophil percentageOrdered B y: Barbara Mathew on 09-30-2023 Basophil percentage >100 SEEN /hpf 0-5 [facility] Comment on above: Microscopic field is filled. Other elements may be obscured. Basophils/100 WBC (Bld) 0.3 % 0-1 [facility] Chloride [Moles/Vol] 113 mmol/L 98-107 [facility] Eosinophils/100 WBC (Bld) 0.3 % 0-5 [facility] Glucose [Mass/Vol] 111 mg/dL 74-106 [facility] Comment on above: Fasting Glucose resu lt from 100 to 125 mg/dL suggests IMPAIRED HOMEOSTASIS per A.D.A. criteria. Hemoglobin (Bld) [Mass/Vol] 13.9 g/dL 13.0-16.5 [facility] Monocytes/100 WBC (Bld) 9.4 % 0-10 [facility] Neutrophils (Bld) [#/Vol] 10.7 10*3/uL 2.0-7.7 [facility] Neutrophils/100 WBC (Bld) 82.8 % 47-70 [facility] Potassium [Moles/Vol] 3.9 mmol/L 3.5-5.1 [facility] Sodium [Moles/Vol] 141 mmol/L 136-145 [facility] WBC (Bld) [#/Vol] 12.9 10*3/uL 4.4-11.0 [facility] Bilirubin Test strip Ql (U)O rdered By: Barbara Mahtew on 09-30-2023 Bilirubin Ql (U) 1 mg/dL Negative [facility] Comment on above: COLOR OF URINE MAY A FFECT DIPSTICK RESULTS. Culture, urineOrdered By: Josh Mathew on 09-30-2023 Bacteria identified Cx Nom (U) Escherichia coli [facility] Determination of erythrocyte mean corpuscular volume (MCV)Ordered By: Barbara Mathew on 09-30-2023 MCV (RBC) [Entitic vol] 94.9 fL 80-94 [facility] Erythrocyte distribution wid th ratioOrdered By: Barbara Mathew on 09-30-2023 Erythrocyte distribution width (RBC) [Ratio] 12.8 % 11.6-14.6 [facility] Erythrocyte distribution wid th standard deviationOrdered By: Barbara Mathew on 09-30-2023 Erythrocyte distribution width (RBC) [Entitic vol] 45.2 fL 35.1-43.9 [facility] Hematocrit Auto (Bld) [Volum e fraction]Ordered By: Barbara Mathew on 09-30-2023 Hematocrit (Bld) [Volume fraction] 42.6 % 40-54 [facility] Immature granulocytes/100 WB C Auto (Bld)Ordered By: Barbara Mathew on 09-30-2023 Immature granulocytes/100 WBC (Bld) 0.300 % 0.0-0.9 [facility] Comment on above: IG% - Immature Granu locytes (promyelocytes, myelocytes and metamyelocytes) > 1% indicates that a LEFT SHIFT is Present. Ketones Test strip Ql (U)Ord ered By: Barbara Mathew on 09-30-2023 Ketones Ql (U) 5 mg/dl Negative [facility] Laboratory - Chemistry and C hemistry - challengeOrdered By: Barbara Mathew on 09-30-2023 CO2 [Moles/Vol] 23.0 mmol/L 21.0-32.0 [facility] Urea nitrogen/Creatinine [Mass ratio] 19.1 mg/mg 10-20 [facility] Laboratory - Hematology and Cell countsOrdered By: Barbara Mathew on 09-30-2023 MCH (RBC) [Entitic mass] 31.0 pg 27.0-32.0 [facility] MCHC (RBC) [Mass/Vol] 32.6 g/dL 32-36 [facility] Nucleated RBC/100 WBC (Bld) [Ratio] 0 % 0-5 [facility] Platelet mean volume (Bld) [Entitic vol] 9.6 fL 6.2-12.0 [facility] Platelets (Bld) [#/Vol] 255 10*3/uL 150-450 [facility] Mucus LM Ql (Urine sed)Order ed By: Barbara Mathew on 09-30-2023 Mucus Ql (Urine sed) 0 SEEN /hpf [facility] Nitrite Test strip Ql (U)Ord ered By: Barbara Mathew on 09-30-2023 Nitrite Ql (U) Positive Negative [facility] No Panel InformationOrdered By: Barbara Mathew on 09-30-2023 Estimated Creatinine Clearance Calc 45.37 ml/min [facility] Estimated GFR (MDRD) Amer 65 mL/min >60 [facility] Comment on above: GFR Calc Estimated GFR (MDRD) Non-Af Amer 53 mL/min >60 [facility] Comment on above: Non- GFR Calc Urine RBC > 100 SEEN /hpf 0-5 [facility] Comment on above: Microscopic field is filled. Other elements may be obscured. No Panel InformationOrdered By: Galilea Moncada on 09-30-2023 Prostate Specific Antigen Screen 5.03 ng/mL 0.00-4.00 [facility] Comment on above: This test was perfor med using the TPSA assay method for the[employer] chemistry system. Values obtained with differentassay methods cannot be used interchangably.When changing PSA assays in the course of monitoring apatient, additional sequential testing should be carriedout to confirm baseline values. Protein Test strip Ql (U)Ord ered By: Barbara Mathew on 09-30-2023 Protein Ql (U) 500 mg/dl Negative [facility] RBC Auto (Bld) [#/Vol]Ordere d By: Barbara Mathew on 09-30-2023 RBC (Bld) [#/Vol] 4.49 10*6/uL 4.6-6.2 [facility] Serum or plasma calcium ambar urement (mass/volume)Ordered By: Barbara Mathew on 09-30-2023 Calcium [Mass/Vol] 8.6 mg/dL 8.5-10.1 [facility] Serum or plasma creatinine m easurement (mass/volume)Ordered By: Barbara Mathew on 09-30-2023 Creatinine [Mass/Vol] 1.36 mg/dL 0.70-1.30 [facility] Comment on above: The validity of the calculated GFR & GFRAA in patients over 70 years has not been determined. Clinical correlation is essential. Serum or plasma urea nitroge n measurement (mass/volume)Ordered By: Barbara Mathew on 09-30-2023 Urea nitrogen [Mass/Vol] 26 mg/dL 7-18 [facility] Squamous epithelial cells de tection in urine sediment by light microscopyOrdered By: Barbara Mathew on 09-30-2023 Epithelial cells.squamous LM Ql (Urine sed) 0 SEEN /hpf 0-5 [facility] Thin prep Papanicolaou smear with manual screeningOrdered By: Barbara Mathew on 09-30-2023 Thin prep Papanicolaou smear with manual screening 5 5-15 [facility] Urine blood detectionOrdered By: Barbara Mathew on 09-30-2023 RBC Ql (U) 250 /ul Negative [facility] Urine clarityOrdered By: Pamela Mathew on 09-30-2023 Clarity (U) Cloudy Clear [facility] Urine color determinationOrd ered By: Barbara Mathew on 09-30-2023 Color (U) Nargis Yellow [facility] Urine glucose detectionOrder ed By: Barbara Mathew on 09-30-2023 Glucose Ql (U) Normal mg/dl Normal [facility] Urine leukocyte esterase det ection by dipstickOrdered By: Barbara Mathew on 09-30-2023 Leukocyte esterase Test strip Ql (U) 500 /ul Negative [facility] Urine pHOrdered By: Barbara Sheth outrobby on 09-30-2023 pH (U) 6.5 [pH] 5.0 - 8.0 [facility] Urine sediment bacteria coun t by microscopy (number/high power field)Ordered By: Barbara Mathew on 09-30-2023 Bacteria LM.HPF (Urine sed) [#/Area] 0 /[HPF] None Seen [facility] Urine specific gravity measu rementOrdered By: Barbara Mathew on 09-30-2023 Specific gravity (U) [Rel density] 1.015 1.002-1.03 0 [facility] Urine urobilinogen measureme ntOrdered By: Barbara Mathew on 09-30-2023 Urobilinogen Ql (U) 1 mg/dl Normal [facility] Erythrocyte sedimentation ra teOrdered By: Jose Hooks on 09-09-2023 ESR (Bld) [Velocity] 6 mm/h 0-20 [facility] Laboratory - Chemistry and C hemistry - challengeOrdered By: Jose Hooks on 09-09-2023 CK [Catalytic activity/Vol] 63 U/L 39-308 [facility] No Panel InformationOrdered By: Jose Hooks on 09-09-2023 C-Reactive Protein Extended Range 7.07 mg/L 0.0-3.0 [facility] Comment on above: C-Reactive Protein ( CRP) provides useful information for thediagnosis, therapy and monitoring of inflammatory processesand associated diseases. For the evaluation of Relative Riskfor Cardiovascular Disease, a High Sensitivity CRP (HSCRP)should be ordered. Basophil percentageOrdered B y: Myrna Bridges on 09-08-2023 Bilirubin [Mass/Vol] 1.30 mg/dL 0.20-1.00 [facility] Comment on above: For patients on eltr ombopag therapy, use of Dimension [place] TBIL is not recommended. Cholesterol [Mass/Vol] 126 mg/dL <200 [facility] Comment on above: <200 mg/dL Desirable 200-240 mg/dL Borderline >240 mg/dL High Risk Protein [Mass/Vol] 6.7 g/dL 6.4-8.2 [facility] Triglyceride [Mass/Vol] 283 mg/dL <199 [facility] Comment on above: The drugs N-Acetylcy steine and Metamizole may falsely depress this assay.Serum Triglycerides Reference Interval Normal <150 mg/dL Borderline high 150 - 199 mg/dL High 200 - 499 mg/dL Very High > or = 500 mg/dL Basophil percentageOrdered B y: Karis Ca on 09-08-2023 Basophil percentage 3.3 mg/dL 2.5-4.9 [facility] Chloride [Moles/Vol] 113 mmol/L 98-107 [facility] Glucose [Mass/Vol] 99 mg/dL 74-106 [facility] Potassium [Moles/Vol] 4.0 mmol/L 3.5-5.1 [facility] Sodium [Moles/Vol] 142 mmol/L 136-145 [facility] Bilirubin Test strip Ql (U)O rdered By: Karis Ca on 09-08-2023 Bilirubin Ql (U) 1 mg/dL Negative [facility] Comment on above: COLOR OF URINE MAY A FFECT DIPSTICK RESULTS. Direct bilirubinOrdered By: Myrna Bridges on 09-08-2023 Bilirubin.direct [Mass/Vol] 0.25 mg/dL 0.00-0.30 [facility] Ketones Test strip Ql (U)Ord ered By: Karis Ca on 09-08-2023 Ketones Ql (U) Negative Negative [facility] Laboratory - Chemistry and C hemistry - challengeOrdered By: Myrna Bridges on 09-08-2023 ALP [Catalytic activity/Vol] 66 U/L 45-117 [facility] ALT [Catalytic activity/Vol] 19 U/L 16-61 [facility] Cholesterol in HDL [Mass/Vol] 36 mg/dL >40 [facility] Comment on above: The drugs N-Acetylcy steine and Metamizole may falsely depress this assay. Reference Range HDL <40 mg/dL Low HDL Cholesterol HDL >or= 60 mg/dL High HDL Cholesterol Cholesterol in LDL [Mass/Vol] 33 mg/dL 0-130 [facility] Globulin (S) [Mass/Vol] 3.3 g/dL 2.2-4.2 [facility] Laboratory - Chemistry and C hemistry - challengeOrdered By: Karis Ca on 09-08-2023 CO2 [Moles/Vol] 23.0 mmol/L 21.0-32.0 [facility] Urea nitrogen/Creatinine [Mass ratio] 15.8 mg/mg 10-20 [facility] Nitrite Test strip Ql (U)Ord ered By: Karis Ca on 09-08-2023 Nitrite Ql (U) Negative Negative [facility] No Panel InformationOrdered By: Myrna Bridges on 09-08-2023 VLDL Cholesterol 57 mg/dL 5-40 [facility] No Panel InformationOrdered By: Karis Ca on 09-08-2023 Estimated GFR (MDRD) Amer 63 mL/min >60 [facility] Comment on above: GFR Calc Estimated GFR (MDRD) Non-Af Amer 52 mL/min >60 [facility] Comment on above: Non- GFR Calc Protein Test strip Ql (U)Ord ered By: Karis Ca on 09-08-2023 Protein Ql (U) Negative Negative [facility] Serum or plasma calcium ambar urement (mass/volume)Ordered By: Karis Ca on 09-08-2023 Calcium [Mass/Vol] 8.8 mg/dL 8.5-10.1 [facility] Serum or plasma creatinine m easurement (mass/volume)Ordered By: Karis Ca on 09-08-2023 Creatinine [Mass/Vol] 1.39 mg/dL 0.70-1.30 [facility] Comment on above: The validity of the calculated GFR & GFRAA in patients over 70 years has not been determined. Clinical correlation is essential. Serum or plasma urea nitroge n measurement (mass/volume)Ordered By: Karis Ca on 09-08-2023 Urea nitrogen [Mass/Vol] 22 mg/dL 7-18 [facility] Thin prep Papanicolaou smear with manual screeningOrdered By: Myrna Bridges on 09-08-2023 Thin prep Papanicolaou smear with manual screening 3.4 g/dL 3.2-5.0 [facility] Thin prep Papanicolaou smear with manual screening 13 U/L 15-37 [facility] Urine blood detectionOrdered By: Karis Ca on 09-08-2023 RBC Ql (U) 10 /ul Negative [facility] Urine clarityOrdered By: Sue Ca on 09-08-2023 Clarity (U) Clear Clear [facility] Urine color determinationOrd ered By: Karis Ca on 09-08-2023 Color (U) Yellow Yellow [facility] Urine glucose detectionOrder ed By: Karis Ca on 09-08-2023 Glucose Ql (U) Normal mg/dl Normal [facility] Urine leukocyte esterase det ection by dipstickOrdered By: Karis Ca on 09-08-2023 Leukocyte esterase Test strip Ql (U) Negative Negative [facility] Urine pHOrdered By: Becky Ca on 09-08-2023 pH (U) 5.0 [pH] 5.0 - 8.0 [facility] Urine specific gravity measu rementOrdered By: Karis Ca on 09-08-2023 Specific gravity (U) [Rel density] 1.025 1.002-1.03 0 [facility] Urine urobilinogen measureme ntOrdered By: Karis Ca on 09-08-2023 Urobilinogen Ql (U) Normal mg/dl Normal [facility] Absolute lymphocyte countOrd ered By: Jose Hooks on 06-24-2023 Lymphocytes Auto (Unsp spec) [#/Vol] 1.02 10*3/uL 0.83-4.51 [facility] Automated lymphocyte count a s percentage of total leukocytesOrdered By: Jose Hooks on 06-24-2023 Lymphocytes/100 WBC Auto (Unsp spec) 14.1 % 19-41 [facility] Basophil percentageOrdered B y: Jose Hooks on 06-24-2023 Basophils/100 WBC (Bld) 1.0 % 0-1 [facility] Bilirubin [Mass/Vol] 1.40 mg/dL 0.20-1.00 [facility] Comment on above: For patients on eltr ombopag therapy, use of Dimension [place] TBIL is not recommended. Chloride [Moles/Vol] 109 mmol/L 98-107 [facility] Eosinophils/100 WBC (Bld) 5.4 % 0-5 [facility] Glucose [Mass/Vol] 96 mg/dL 74-106 [facility] Hemoglobin (Bld) [Mass/Vol] 14.8 g/dL 13.0-16.5 [facility] Monocytes/100 WBC (Bld) 8.7 % 0-10 [facility] Neutrophils (Bld) [#/Vol] 5.1 10*3/uL 2.0-7.7 [facility] Neutrophils/100 WBC (Bld) 70.2 % 47-70 [facility] Potassium [Moles/Vol] 4.1 mmol/L 3.5-5.1 [facility] Protein [Mass/Vol] 6.3 g/dL 6.4-8.2 [facility] Sodium [Moles/Vol] 141 mmol/L 136-145 [facility] WBC (Bld) [#/Vol] 7.2 10*3/uL 4.4-11.0 [facility] Determination of erythrocyte mean corpuscular volume (MCV)Ordered By: Jose Hooks on 06-24-2023 MCV (RBC) [Entitic vol] 97.9 fL 80-94 [facility] Erythrocyte distribution wid th ratioOrdered By: Jose Jessee on 06-24-2023 Erythrocyte distribution width (RBC) [Ratio] 12.4 % 11.6-14.6 [facility] Erythrocyte distribution wid th standard deviationOrdered By: Jose Orellanaok on 06-24-2023 Erythrocyte distribution width (RBC) [Entitic vol] 44.8 fL 35.1-43.9 [facility] Hematocrit Auto (Bld) [Volum e fraction]Ordered By: Jose Hooks 06-24-2023 Hematocrit (Bld) [Volume fraction] 46.6 % 40-54 [facility] Immature granulocytes/100 WB C Auto (Bld)Ordered By: Jose Hooks on 06-24-2023 Immature granulocytes/100 WBC (Bld) 0.600 % 0.0-0.9 [facility] Comment on above: IG% - Immature Granu locytes (promyelocytes, myelocytes and metamyelocytes) > 1% indicates that a LEFT SHIFT is Present. Laboratory - Chemistry and C hemistry - challengeOrdered By: Jose Hooks on 06-24-2023 Albumin/Globulin [Mass ratio] 1.0 {ratio} 0.9-2.4 [facility] ALP [Catalytic activity/Vol] 72 U/L 45-117 [facility] ALT [Catalytic activity/Vol] 15 U/L 16-61 [facility] CO2 [Moles/Vol] 28.0 mmol/L 21.0-32.0 [facility] Globulin (S) [Mass/Vol] 3.2 g/dL 2.2-4.2 [facility] Urea nitrogen/Creatinine [Mass ratio] 11.5 mg/mg 10-20 [facility] Laboratory - Hematology and Cell countsOrdered By: Jose Hooks on 06-24-2023 MCH (RBC) [Entitic mass] 31.1 pg 27.0-32.0 [facility] MCHC (RBC) [Mass/Vol] 31.8 g/dL 32-36 [facility] Nucleated RBC/100 WBC (Bld) [Ratio] 0 % 0-5 [facility] Platelets (Bld) [#/Vol] 323 10*3/uL 150-450 [facility] No Panel InformationOrdered By: Jose Hooks on 06-24-2023 Estimated GFR (MDRD) Amer 59 mL/min >60 [facility] Comment on above: GFR Calc Estimated GFR (MDRD) Non-Af Amer 49 mL/min >60 [facility] Comment on above: Non- GFR Calc Vitamin D 25-Hydroxy 86.7 ng/mL [facility] Comment on above: Vitamin D 25(OH) Sta tus Range Deficiency <20 ng/mL (50nmol/L) Insufficiency 20 - 30 ng/mL (50 - 75 nmol/L) Sufficiency 30 - 100 ng/mL (75 - 250 nmol/L) Toxicity >100 ng/mL (>250 nmol/L) Platelet mean volume Cristi-Ec ker (Bld) [Entitic vol]Ordered By: Jose Hooks on 06-24-2023 Platelet mean volume (Bld) [Entitic vol] 9.8 fL 6.2-12.0 [facility] RBC Auto (Bld) [#/Vol]Ordere d By: Jose Hooks on 06-24-2023 RBC (Bld) [#/Vol] 4.76 10*6/uL 4.6-6.2 [facility] Serum or plasma calcium ambar urement (mass/volume)Ordered By: Jose Hooks on 06-24-2023 Calcium [Mass/Vol] 9.0 mg/dL 8.5-10.1 [facility] Serum or plasma creatinine m easurement (mass/volume)Ordered By: Jose Hooks on 06-24-2023 Creatinine [Mass/Vol] 1.48 mg/dL 0.70-1.30 [facility] Comment on above: The validity of the calculated GFR & GFRAA in patients over 70 years has not been determined. Clinical correlation is essential. Serum or plasma thyroid stim ulating hormone (TSH) measurement (units/volume)Ordered By: Jose Hooks on 06-24-2023 TSH Qn 0.59 uIU/mL 0.358-3.74 [facility] Serum or plasma urea nitroge n measurement (mass/volume)Ordered By: Jose Hooks on 06-24-2023 Urea nitrogen [Mass/Vol] 17 mg/dL 7-18 [facility] Thin prep Papanicolaou smear with manual screeningOrdered By: Jose Hooks on 06-24-2023 Thin prep Papanicolaou smear with manual screening 3.1 g/dL 3.2-5.0 [facility] Thin prep Papanicolaou smear with manual screening 13 U/L 15-37 [facility] Thin prep Papanicolaou smear with manual screening 4 5-15 [facility] Absolute lymphocyte countOrd ered By: Jose Hooks on 06-08-2023 Lymphocytes Auto (Unsp spec) [#/Vol] 1.01 10*3/uL 0.83-4.51 [facility] Basophil percentageOrdered B y: Jose Hooks on 06-08-2023 Basophils/100 WBC (Bld) 0.8 % 0-1 [facility] Eosinophils/100 WBC (Bld) 5.9 % 0-5 [facility] Neutrophils (Bld) [#/Vol] 5.6 10*3/uL 2.0-7.7 [facility] Neutrophils/100 WBC (Bld) 70.1 % 47-70 [facility] WBC (Bld) [#/Vol] 8.0 10*3/uL 4.4-11.0 [facility] Blood erythrocytes count (nu mber/volume)Ordered By: Jose Hooks on 06-08-2023 RBC (Bld) [#/Vol] 4.53 10*6/uL 4.6-6.2 [facility] Blood hemoglobin measurement (mass/volume)Ordered By: Jose Hooks on 06-08-2023 Hemoglobin (Bld) [Mass/Vol] 14.5 g/dL 13.0-16.5 [facility] Blood lymphocytes/100 leukoc ytesOrdered By: Jose Hooks on 06-08-2023 Lymphocytes/100 WBC (Bld) 12.7 % 19-41 [facility] Blood monocytes/100 leukocyt esOrdered By: Jose Hooks on 06-08-2023 Monocytes/100 WBC (Bld) 9.9 % 0-10 [facility] Blood platelet mean volumeOr dered By: Jose Hooks on 06-08-2023 Platelet mean volume (Bld) [Entitic vol] 9.4 fL 6.2-12.0 [facility] Determination of erythrocyte mean corpuscular volume (MCV)Ordered By: Jose Hooks on 06-08-2023 MCV (RBC) [Entitic vol] 96.9 fL 80-94 [facility] Hematocrit Auto (Bld) [Volum e fraction]Ordered By: Jose Hooks on 06-08-2023 Hematocrit (Bld) [Volume fraction] 43.9 % 40-54 [facility] Laboratory - Hematology and Cell countsOrdered By: Jose Hooks on 06-08-2023 Erythrocyte distribution width (RBC) [Entitic vol] 44.6 fL 35.1-43.9 [facility] Erythrocyte distribution width (RBC) [Ratio] 12.6 % 11.6-14.6 [facility] Immature granulocytes/100 WBC (Bld) 0.600 % 0.0-0.9 [facility] Comment on above: IG% - Immature Granu locytes (promyelocytes, myelocytes and metamyelocytes) > 1% indicates that a LEFT SHIFT is Present. MCH (RBC) [Entitic mass] 32.0 pg 27.0-32.0 [facility] Nucleated RBC/100 WBC (Bld) [Ratio] 0 % 0-5 [facility] MCHC Auto (RBC) [Mass/Vol]Or dered By: Jose Hooks on 06-08-2023 MCHC (RBC) [Mass/Vol] 33.0 g/dL 32-36 [facility] Platelets bldOrdered By: Jose Hooks on 06-08-2023 Platelets (Bld) [#/Vol] 365 10*3/uL 150-450 [facility] Absolute lymphocyte countOrd ered By: Kusum White on 05-30-2023 Lymphocytes Auto (Unsp spec) [#/Vol] 1.12 10*3/uL 0.83-4.51 [facility] Basophil percentageOrdered B y: White on 05-30-2023 Basophils/100 WBC (Bld) 0.5 % 0-1 [facility] Bilirubin [Mass/Vol] 1.00 mg/dL 0.20-1.00 [facility] Comment on above: For patients on eltr ombopag therapy, use of Dimension [place] TBIL is not recommended. Chloride [Moles/Vol] 115 mmol/L 98-107 [facility] Eosinophils/100 WBC (Bld) 5.0 % 0-5 [facility] Glucose [Mass/Vol] 87 mg/dL 74-106 [facility] Neutrophils (Bld) [#/Vol] 5.2 10*3/uL 2.0-7.7 [facility] Neutrophils/100 WBC (Bld) 69.6 % 47-70 [facility] Potassium [Moles/Vol] 3.9 mmol/L 3.5-5.1 [facility] Protein [Mass/Vol] 5.6 g/dL 6.4-8.2 [facility] Sodium [Moles/Vol] 144 mmol/L 136-145 [facility] WBC (Bld) [#/Vol] 7.5 10*3/uL 4.4-11.0 [facility] Blood erythrocytes count (nu mber/volume)Ordered By: Kusum Bishop on 05-30-2023 RBC (Bld) [#/Vol] 4.24 10*6/uL 4.6-6.2 [facility] Blood hemoglobin measurement (mass/volume)Ordered By: Kusum Bishop on 05-30-2023 Hemoglobin (Bld) [Mass/Vol] 13.6 g/dL 13.0-16.5 [facility] Blood lymphocytes/100 leukoc ytesOrdered By: Kusum Bishop on 05-30-2023 Lymphocytes/100 WBC (Bld) 15.0 % 19-41 [facility] Blood monocytes/100 leukocyt esOrdered By: Kusum Bishop on 05-30-2023 Monocytes/100 WBC (Bld) 9.0 % 0-10 [facility] Blood platelet mean volumeOr dered By: Kusum Bishop on 05-30-2023 Platelet mean volume (Bld) [Entitic vol] 8.9 fL 6.2-12.0 [facility] Determination of erythrocyte mean corpuscular volume (MCV)Ordered By: Kusum Bishop on 05-30-2023 MCV (RBC) [Entitic vol] 95.0 fL 80-94 [facility] Hematocrit Auto (Bld) [Volum e fraction]Ordered By: Kusum Bishop on 05-30-2023 Hematocrit (Bld) [Volume fraction] 40.3 % 40-54 [facility] Laboratory - Chemistry and C hemistry - challengeOrdered By: Kusum Bishop on 05-30-2023 ALP [Catalytic activity/Vol] 67 U/L 45-117 [facility] ALT [Catalytic activity/Vol] 19 U/L 16-61 [facility] CO2 [Moles/Vol] 26.0 mmol/L 21.0-32.0 [facility] Globulin (S) [Mass/Vol] 3.1 g/dL 2.2-4.2 [facility] Urea nitrogen/Creatinine [Mass ratio] 17.3 mg/mg 10-20 [facility] Laboratory - CoagulationOrde red By: Kusum Bishop on 05-30-2023 aPTT Coag (Bld) [Time] 85.7 s 24.1-36.2 [facility] Laboratory - Hematology and Cell countsOrdered By: Kusum Bishop on 05-30-2023 Erythrocyte distribution width (RBC) [Entitic vol] 42.5 fL 35.1-43.9 [facility] Erythrocyte distribution width (RBC) [Ratio] 12.3 % 11.6-14.6 [facility] Immature granulocytes/100 WBC (Bld) 0.900 % 0.0-0.9 [facility] Comment on above: IG% - Immature Granu locytes (promyelocytes, myelocytes and metamyelocytes) > 1% indicates that a LEFT SHIFT is Present. MCH (RBC) [Entitic mass] 32.1 pg 27.0-32.0 [facility] Nucleated RBC/100 WBC (Bld) [Ratio] 0 % 0-5 [facility] MCHC Auto (RBC) [Mass/Vol]Or dered By: Kusum Bishop on 05-30-2023 MCHC (RBC) [Mass/Vol] 33.7 g/dL 32-36 [facility] No Panel InformationOrdered By: Kusum Bishop on 05-30-2023 Estimated Creatinine Clearance Calc 56.59 ml/min [facility] Estimated GFR (MDRD) Amer 83 mL/min >60 [facility] Comment on above: GFR Calc Estimated GFR (MDRD) Non-Af Amer 68 mL/min >60 [facility] Comment on above: Non- GFR Calc Platelets bldOrdered By: Pedro Bishop on 05-30-2023 Platelets (Bld) [#/Vol] 339 10*3/uL 150-450 [facility] Serum or plasma albumin ambar urement (mass/volume)Ordered By: Kusum Bishpo on 05-30-2023 Albumin [Mass/Vol] 2.5 g/dL 3.2-5.0 [facility] Serum or plasma albumin/glob ulin mass ratioOrdered By: Kusum Bishop on 05-30-2023 Albumin/Globulin [Mass ratio] 0.8 {ratio} 0.9-2.4 [facility] Serum or plasma calcium ambar urement (mass/volume)Ordered By: Kusum Bishop on 05-30-2023 Calcium [Mass/Vol] 8.5 mg/dL 8.5-10.1 [facility] Serum or plasma creatinine m easurement (mass/volume)Ordered By: Kusum Bishop on 05-30-2023 Creatinine [Mass/Vol] 1.10 mg/dL 0.70-1.30 [facility] Comment on above: The validity of the calculated GFR & GFRAA in patients over 70 years has not been determined. Clinical correlation is essential. Serum or plasma urea nitroge n measurement (mass/volume)Ordered By: Kusum Bishop on 05-30-2023 Urea nitrogen [Mass/Vol] 19 mg/dL 7-18 [facility] Thin prep Papanicolaou smear with manual screeningOrdered By: Kusum Bishop on 05-30-2023 Thin prep Papanicolaou smear with manual screening 10 U/L 15-37 [facility] Thin prep Papanicolaou smear with manual screening 3 5-15 [facility] Absolute lymphocyte countOrd ered By: Fred Tam on 05-29-2023 Lymphocytes Auto (Unsp spec) [#/Vol] 0.99 10*3/uL 0.83-4.51 [facility] Basophil percentageOrdered B y: Fred Tam on 05-29-2023 Basophils/100 WBC (Bld) 0.6 % 0-1 [facility] Chloride [Moles/Vol] 113 mmol/L 98-107 [facility] Eosinophils/100 WBC (Bld) 6.3 % 0-5 [facility] Glucose [Mass/Vol] 108 mg/dL 74-106 [facility] Comment on above: Fasting Glucose resu lt from 100 to 125 mg/dL suggests IMPAIRED HOMEOSTASIS per A.D.A. criteria. Neutrophils (Bld) [#/Vol] 5.0 10*3/uL 2.0-7.7 [facility] Neutrophils/100 WBC (Bld) 69.1 % 47-70 [facility] Potassium [Moles/Vol] 4.1 mmol/L 3.5-5.1 [facility] Sodium [Moles/Vol] 144 mmol/L 136-145 [facility] WBC (Bld) [#/Vol] 7.3 10*3/uL 4.4-11.0 [facility] Blood erythrocytes count (nu mber/volume)Ordered By: Fred Tam on 05-29-2023 RBC (Bld) [#/Vol] 4.32 10*6/uL 4.6-6.2 [facility] Blood hemoglobin measurement (mass/volume)Ordered By: Fred Tam on 05-29-2023 Hemoglobin (Bld) [Mass/Vol] 13.9 g/dL 13.0-16.5 [facility] Blood lymphocytes/100 leukoc ytesOrdered By: Fred Tam on 05-29-2023 Lymphocytes/100 WBC (Bld) 13.6 % 19-41 [facility] Blood monocytes/100 leukocyt esOrdered By: Fred Tam on 05-29-2023 Monocytes/100 WBC (Bld) 9.2 % 0-10 [facility] Blood platelet mean volumeOr dered By: Fred Tam on 05-29-2023 Platelet mean volume (Bld) [Entitic vol] 9.0 fL 6.2-12.0 [facility] Determination of erythrocyte mean corpuscular volume (MCV)Ordered By: Fred Tam on 05-29-2023 MCV (RBC) [Entitic vol] 95.4 fL 80-94 [facility] Hematocrit Auto (Bld) [Volum e fraction]Ordered By: Fred Tam on 05-29-2023 Hematocrit (Bld) [Volume fraction] 41.2 % 40-54 [facility] INR in Blood by Coagulation assayOrdered By: Kusum Bishop on 05-29-2023 INR Coag (Bld) [Relative time] 1.4 {INR} [facility] Laboratory - Chemistry and C hemistry - challengeOrdered By: Fred Tam on 05-29-2023 CO2 [Moles/Vol] 28.0 mmol/L 21.0-32.0 [facility] Urea nitrogen/Creatinine [Mass ratio] 22.6 mg/mg 10-20 [facility] Laboratory - Chemistry and C hemistry - challengeOrdered By: Kusum Bishop on 05-29-2023 Magnesium [Mass/Vol] 2.1 mg/dL 1.6-2.6 [facility] Laboratory - CoagulationOrde red By: Kusum Bishop on 05-29-2023 PT Coag (PPP) [Time] 17.0 s 11.7-14.9 [facility] Laboratory - Hematology and Cell countsOrdered By: Fred Tam on 05-29-2023 Erythrocyte distribution width (RBC) [Entitic vol] 43.1 fL 35.1-43.9 [facility] Erythrocyte distribution width (RBC) [Ratio] 12.4 % 11.6-14.6 [facility] Immature granulocytes/100 WBC (Bld) 1.200 % 0.0-0.9 [facility] Comment on above: IG% - Immature Granu locytes (promyelocytes, myelocytes and metamyelocytes) > 1% indicates that a LEFT SHIFT is Present. MCH (RBC) [Entitic mass] 32.2 pg 27.0-32.0 [facility] Nucleated RBC/100 WBC (Bld) [Ratio] 0 % 0-5 [facility] Lower GI hemoglobin IA Ql (S tl)Ordered By: Fred Tam on 05-29-2023 Stool Occult Blood (CHRIS) Positive [facility] Stool Occult Blood (CHRIS) Positive [facility] MCHC Auto (RBC) [Mass/Vol]Or dered By: Fred Tam on 05-29-2023 MCHC (RBC) [Mass/Vol] 33.7 g/dL 32-36 [facility] No Panel InformationOrdered By: Fred Tam on 05-29-2023 Estimated Creatinine Clearance Calc 57.39 ml/min [facility] Estimated GFR (MDRD) Amer 86 mL/min >60 [facility] Comment on above: GFR Calc Estimated GFR (MDRD) Non-Af Amer 71 mL/min >60 [facility] Comment on above: Non- GFR Calc Platelets bldOrdered By: Elisa Tam on 05-29-2023 Platelets (Bld) [#/Vol] 370 10*3/uL 150-450 [facility] Serum or plasma calcium ambar urement (mass/volume)Ordered By: Fred Tam on 05-29-2023 Calcium [Mass/Vol] 8.5 mg/dL 8.5-10.1 [facility] Serum or plasma creatinine m easurement (mass/volume)Ordered By: Fred Tam on 05-29-2023 Creatinine [Mass/Vol] 1.06 mg/dL 0.70-1.30 [facility] Comment on above: The validity of the calculated GFR & GFRAA in patients over 70 years has not been determined. Clinical correlation is essential. Serum or plasma urea nitroge n measurement (mass/volume)Ordered By: Fred Tam on 05-29-2023 Urea nitrogen [Mass/Vol] 24 mg/dL 7-18 [facility] Thin prep Papanicolaou smear with manual screeningOrdered By: Fred Tam on 05-29-2023 Thin prep Papanicolaou smear with manual screening 3 5-15 [facility] Basophil percentageOrdered B y: Lm Delaney on 05-22-2023 Basophil percentage Not Reportable [facility] Erythrocyte sedimentation ra teOrdered By: Lm Delaney on 05-22-2023 ESR (Bld) [Velocity] 25 mm/h 0-20 [facility] No Panel InformationOrdered By: Lm Delaney on 05-22-2023 Anti-Nuclear Antibody Screen Negative Negative [facility] Comment on above: Performed at: [facility] [address] [id number] Director: Brian Montenegro PhD, Phone: [phone] [employer] Antibody Not Reportable [facility] Miscellaneous Test See comment [facility] Comment on above: TEST RESULTS LIMITSP araneoplastic AbInterpretation Negative NegativeA negative paraneoplastic autoantibody result does not rule outall clinically relevant antibodies. If indicated, a phenotypespecific profile (For example, Encephalopathy, dementia, myelopathy, or axonal neuropathy) should be considered.Anti-Hu Ab A, Negative NegativeAnti-Ri Ab A, Negative NegativeAntineuronal nuclear Ab Type 3 A, Negative NegativePCA Type-1 (Anti-Yo) Ab A, Negative NegativePurkinje Cell Cyto Ab Type 2 A, Negative NegativePurkinje Cell Cyto Ab Type Tr A, Negative NegativeAmphiphysin Antibody A, Negative NegativeCRMP-5 IgG A, Negative NegativeAGNA-1 A, Negative NegativeVGCC Antibody <1.0 pmol/L 0.0-30.5MQVIU0 Antibody,Cell-based IFA A, Negative NegativeLGI1 Antibody, Cell-based IFA A, Negative NegativeCommentsA: This test was developed and its performance characteristics determined by [facility]. It has not been cleared or approved by the Food and Drug Administration. TESTING PERFORMED AT [facility]. ORIGINAL REPORT ON FILE IN LAB CONTAINS ADDITIONAL TEST SITE INFORMATION. [employer] SUPERVISOR Antibody Not Reportable [facility] Serum DNA double strand anti body assay (units/volume)Ordered By: Lm Delaney on 05-22-2023 DNA double strand Ab Qn (S) Not Reportable [facility] Serum Rosa-1 antibody assay (u nits/volume)Ordered By: Lm Delaney on 05-22-2023 Rosa-1 extractable nuclear Ab Qn (S) Not Reportable [facility] Serum Scl-70 extractable nuc lear antibody assay (units/volume)Ordered By: Lm Delaney on 05-22-2023 SCL-70 extractable nuclear Ab Qn (S) Not Reportable [facility] Serum Cam extractable nucl ear antibody detectionOrdered By: Lm Delaney on 05-22-2023 Cam extractable nuclear Ab Ql (S) Not Reportable [facility] Serum or plasma C reactive p rotein measurement (mass/volume)Ordered By: Lm Delaney on 05-22-2023 CRP [Mass/Vol] 75.60 mg/L 0.0-3.0 [facility] Comment on above: C-Reactive Protein ( CRP) provides useful information for thediagnosis, therapy and monitoring of inflammatory processesand associated diseases. For the evaluation of Relative Riskfor Cardiovascular Disease, a High Sensitivity CRP (HSCRP)should be ordered. Basophil percentageOrdered B y: Lm Delaney on 05-21-2023 Chloride [Moles/Vol] 113 mmol/L 98-107 [facility] Cholesterol [Mass/Vol] 78 mg/dL <200 [facility] Comment on above: <200 mg/dL Desirable 200-240 mg/dL Borderline >240 mg/dL High Risk Glucose [Mass/Vol] 89 mg/dL 74-106 [facility] Potassium [Moles/Vol] 4.5 mmol/L 3.5-5.1 [facility] Sodium [Moles/Vol] 145 mmol/L 136-145 [facility] Triglyceride [Mass/Vol] 87 mg/dL <199 [facility] Comment on above: The drugs N-Acetylcy steine and Metamizole may falsely depress this assay.Serum Triglycerides Reference Interval Normal <150 mg/dL Borderline high 150 - 199 mg/dL High 200 - 499 mg/dL Very High > or = 500 mg/dL Laboratory - Chemistry and C hemistry - challengeOrdered By: Lm Delaney on 05-21-2023 CO2 [Moles/Vol] 25.0 mmol/L 21.0-32.0 [facility] Urea nitrogen/Creatinine [Mass ratio] 19.4 mg/mg 10- [facility] Laboratory - Drug toxicology Ordered By: Lm Delaney on 05-21-2023 Amphetamines Ql (U) Negative <1000 ng/mL [facility] Benzodiazepines Ql (U) Negative < 200 ng/mL [facility] Cannabinoids Screen Ql (U) Negative < 50 ng/mL [facility] Cocaine Ql (U) Negative < 300 ng/mL [facility] Opiates Ql (U) Negative < 300 ng/mL [facility] No Panel InformationOrdered By: Lm Delaney on 05-21-2023 MDMA (Ecstasy) Screen Negative < 500 ng/mL [facility] Urine Barbiturates Screen Negative < 200 ng/mL [facility] Urine Drug Screen Comment [facility] Comment on above: CONFIRMATORY TESTING FOR ALL POSITIVE URINE DRUG SCREENRESULTS WILL ONLY BE SENT OUT UPON PHYSICIAN ORDER. VISTA Urine Drug Screen methods provide only preliminaryanalytical test results. A more specific alternate chemicalmethod must be used in order to obtain a confirmedanalytical result. Gas chromatography/mass spectrometery(GC/MS) is the preferred confirmatory method. Clinicalconsideration and professional judgement should be appliedto any drug of abuse test result, particularly whenpreliminary positive results are used. URINE TCA TESTING MUST BE ORDERED SEPARATELY. USE TESTMNEMONIC: [facility] Urine Methadone Screen Negative < 300 ng/mL [facility] Estimated Creatinine Clearance Calc 49.93 ml/min [facility] Estimated GFR (MDRD) Amer 72 mL/min >60 [facility] Comment on above: GFR Calc Estimated GFR (MDRD) Non-Af Amer 60 mL/min >60 [facility] Comment on above: Non- GFR Calc Serum or plasma calcium ambar urement (mass/volume)Ordered By: Lm Delaney on 05-21-2023 Calcium [Mass/Vol] 8.0 mg/dL 8.5-10.1 [facility] Serum or plasma cholesterol in HDL measurement (mass/volume)Ordered By: Lm Delaney on 05-21-2023 Cholesterol in HDL [Mass/Vol] 42 mg/dL >40 [facility] Comment on above: The drugs N-Acetylcy steine and Metamizole may falsely depress this assay. Reference Range HDL <40 mg/dL Low HDL Cholesterol HDL >or= 60 mg/dL High HDL Cholesterol Serum or plasma cholesterol in VLDL measurement (mass/volume)Ordered By: Lm Delaney on 05-21-2023 Cholesterol in VLDL [Mass/Vol] 17 mg/dL 5-40 [facility] Serum or plasma creatinine m easurement (mass/volume)Ordered By: Lm Delaney on 05-21-2023 Creatinine [Mass/Vol] 1.24 mg/dL 0.70-1.30 [facility] Comment on above: The validity of the calculated GFR & GFRAA in patients over 70 years has not been determined. Clinical correlation is essential. Serum or plasma low density lipoprotein (LDL) cholesterol measurement (mass/volume)Ordered By: Lm Delaney on 05-21-2023 Cholesterol in LDL [Mass/Vol] 19 mg/dL 0-130 [facility] Serum or plasma urea nitroge n measurement (mass/volume)Ordered By: Lm Delaney on 05-21-2023 Urea nitrogen [Mass/Vol] 24 mg/dL 7-18 [facility] Thin prep Papanicolaou smear with manual screeningOrdered By: Lm Delaney on 05-21-2023 Thin prep Papanicolaou smear with manual screening 7 5-15 [facility] Urine phencyclidine (PCP) de tectionOrdered By: Lm Delaney on 05-21-2023 Phencyclidine Ql (U) Negative < 25 ng/mL [facility] Absolute lymphocyte countOrd ered By: Rl Cadena on 05-20-2023 Lymphocytes Auto (Unsp spec) [#/Vol] 0.84 10*3/uL 0.83-4.51 [facility] Basophil percentageOrdered B y: Lm Delaney on 05-20-2023 Basophil percentage < 10.0 umol/L 11-32 [facility] Basophil percentageOrdered B y: Rl Cadena on 05-20-2023 Basophil percentage 0 SEEN /hpf 0-5 [facility] Basophils/100 WBC (Bld) 0.6 % 0-1 [facility] Chloride [Moles/Vol] 109 mmol/L 98-107 [facility] Eosinophils/100 WBC (Bld) 1.0 % 0-5 [facility] Glucose [Mass/Vol] 139 mg/dL 74-106 [facility] Comment on above: Fasting Glucose resu lt greater than or equal to 126 mg/dL suggests DIABETES MELLITUS per A.D.A. criteria. Neutrophils (Bld) [#/Vol] 7.2 10*3/uL 2.0-7.7 [facility] Neutrophils/100 WBC (Bld) 79.6 % 47-70 [facility] Potassium [Moles/Vol] 3.9 mmol/L 3.5-5.1 [facility] Sodium [Moles/Vol] 139 mmol/L 136-145 [facility] WBC (Bld) [#/Vol] 9.1 10*3/uL 4.4-11.0 [facility] Bilirubin Test strip Ql (U)O rdered By: Rl Cadena on 05-20-2023 Bilirubin Ql (U) Negative Negative [facility] Blood erythrocytes count (nu mber/volume)Ordered By: Rl Cadena on 05-20-2023 RBC (Bld) [#/Vol] 4.86 10*6/uL 4.6-6.2 [facility] Blood hemoglobin measurement (mass/volume)Ordered By: Rl Cadena on 05-20-2023 Hemoglobin (Bld) [Mass/Vol] 15.2 g/dL 13.0-16.5 [facility] Blood lymphocytes/100 leukoc ytesOrdered By: Rl Cadena on 05-20-2023 Lymphocytes/100 WBC (Bld) 9.3 % 19-41 [facility] Blood monocytes/100 leukocyt esOrdered By: Rl Cadena on 05-20-2023 Monocytes/100 WBC (Bld) 8.9 % 0-10 [facility] Blood platelet mean volumeOr dered By: Rl Cadena on 05-20-2023 Platelet mean volume (Bld) [Entitic vol] 9.3 fL 6.2-12.0 [facility] Determination of erythrocyte mean corpuscular volume (MCV)Ordered By: Rl Cadena on 05-20-2023 MCV (RBC) [Entitic vol] 95.3 fL 80-94 [facility] Hematocrit Auto (Bld) [Volum e fraction]Ordered By: Rl Cadena on 05-20-2023 Hematocrit (Bld) [Volume fraction] 46.3 % 40-54 [facility] INR in Blood by Coagulation assayOrdered By: Rl Cadena on 05-20-2023 INR Coag (Bld) [Relative time] 1.0 {INR} [facility] Ketones Test strip Ql (U)Ord ered By: Rl Cadena on 05-20-2023 Ketones Ql (U) Negative Negative [facility] Laboratory - Chemistry and C hemistry - challengeOrdered By: Rl Cadena on 05-20-2023 CO2 [Moles/Vol] 22.0 mmol/L 21.0-32.0 [facility] Urea nitrogen/Creatinine [Mass ratio] 14.5 mg/mg 03-20 [facility] - CoagulationOrde red By: Rl Cadena on 05-20-2023 aPTT Coag (Bld) [Time] 29.4 s 24.1-36.2 [facility] PT Coag (PPP) [Time] 13.6 s 11.7-14.9 [facility] - Hematology and Cell countsOrdered By: Rl Cadena on 05-20-2023 Erythrocyte distribution width (RBC) [Entitic vol] 44.9 fL 35.1-43.9 [facility] Erythrocyte distribution width (RBC) [Ratio] 12.8 % 11.6-14.6 [facility] Immature granulocytes/100 WBC (Bld) 0.600 % 0.0-0.9 [facility] Comment on above: IG% - Immature Granu locytes (promyelocytes, myelocytes and metamyelocytes) > 1% indicates that a LEFT SHIFT is Present. MCH (RBC) [Entitic mass] 31.3 pg 27.0-32.0 [facility] Nucleated RBC/100 WBC (Bld) [Ratio] 0 % 0-5 [facility] MCHC Auto (RBC) [Mass/Vol]Or dered By: Rl Cadena on 05-20-2023 MCHC (RBC) [Mass/Vol] 32.8 g/dL 32-36 [facility] Mucus LM Ql (Urine sed)Order ed By: Rl Cadena on 05-20-2023 Mucus Ql (Urine sed) 0 SEEN /hpf [facility] Nitrite Test strip Ql (U)Ord ered By: Rl Cadena on 05-20-2023 Nitrite Ql (U) Negative Negative [facility] No Panel InformationOrdered By: Rl Cadena on 05-20-2023 Estimated Creatinine Clearance Calc 38.26 ml/min [facility] Estimated GFR (MDRD) Amer 54 mL/min >60 [facility] Comment on above: GFR Calc Estimated GFR (MDRD) Non-Af Amer 45 mL/min >60 [facility] Comment on above: Non- GFR Calc Troponin I High Sensitivity 6 pg/mL 3.0-78.0 [facility] Comment on above: Please Note: [place] t Units and Gender Specific Reference Ranges. For more information see Policy Stat Procedure [place] High Sensitivity Troponin (TNIH) and attachments. No Panel InformationOrdered By: Lm Delaney on 05-20-2023 Thyroid Stimulating Hormone (TSH) 0.42 uIU/mL 0.358-3.74 [facility] Platelets bldOrdered By: Arron Cadena on 05-20-2023 Platelets (Bld) [#/Vol] 265 10*3/uL 150-450 [facility] Protein Test strip Ql (U)Ord ered By: Rl Cadena on 05-20-2023 Protein Ql (U) 15 mg/dl Negative [facility] Serum or plasma calcium ambar urement (mass/volume)Ordered By: Rl Cadena on 05-20-2023 Calcium [Mass/Vol] 9.0 mg/dL 8.5-10.1 [facility] Serum or plasma creatinine m easurement (mass/volume)Ordered By: Rl Cadena on 05-20-2023 Creatinine [Mass/Vol] 1.59 mg/dL 0.70-1.30 [facility] Comment on above: The validity of the calculated GFR & GFRAA in patients over 70 years has not been determined. Clinical correlation is essential. Serum or plasma urea nitroge n measurement (mass/volume)Ordered By: Rl Cadena on 05-20-2023 Urea nitrogen [Mass/Vol] 23 mg/dL 7-18 [facility] Squamous epithelial cells de tection in urine sediment by light microscopyOrdered By: Rl Cadena on 05-20-2023 Epithelial cells.squamous LM Ql (Urine sed) 0 SEEN /hpf 0-5 [facility] Thin prep Papanicolaou smear with manual screeningOrdered By: Rl Cadena on 05-20-2023 Thin prep Papanicolaou smear with manual screening 8 5-15 [facility] Urine blood detectionOrdered By: Rl Cadena on 05-20-2023 RBC Ql (U) 25 /ul Negative [facility] RBC Ql (U) 0-5 SEEN /hpf 0-5 [facility] Urine clarityOrdered By: Arron Cadena on 05-20-2023 Clarity (U) Clear Clear [facility] Urine color determinationOrd ered By: Rl Cadena on 05-20-2023 Color (U) Yellow Yellow [facility] Urine glucose detectionOrder ed By: Rl Cadena on 05-20-2023 Glucose Ql (U) Normal mg/dl Normal [facility] Urine leukocyte esterase det ection by dipstickOrdered By: Rl Cadena on 05-20-2023 Leukocyte esterase Test strip Ql (U) Negative Negative [facility] Urine pHOrdered By: Rl hoffman on 05-20-2023 pH (U) 7.0 [pH] 5.0 - 8.0 [facility] Urine sediment bacteria coun t by microscopy (number/high power field)Ordered By: Rl Cadena on 05-20-2023 Bacteria LM.HPF (Urine sed) [#/Area] 0 /[HPF] None Seen [facility] Urine specific gravity measu rementOrdered By: Rl Cadena on 05-20-2023 Specific gravity (U) [Rel density] 1.010 1.002-1.03 0 [facility] Urobilinogen Auto test strip Ql (U)Ordered By: Rl Cadena on 05-20-2023 Urobilinogen Ql (U) 1 mg/dl Normal [facility] Laboratory - Microbiology an d Antimicrobial susceptibilityOrdered By: Jose Hooks on 05-06-2023 SARS-CoV-2 (COVID-19) RNA [place]+probe Ql (Unsp spec) [facility] SARS-CoV-2 (COVID-19) RNA [place]+probe Ql (Unsp spec) [facility] No Panel InformationOrdered By: Jose Hooks on 05-06-2023 Influenza Types A,B Direct FA (CRHIS) [facility] Influenza Types A,B Direct FA (CHRIS) [facility] RSV Ag Immune stain Ql (Tiss )Ordered By: Jose Hooks on 05-06-2023 Rapid RSV (DFA) RSV [facility] Rapid RSV (DFA) RSV [facility] Absolute lymphocyte countOrd ered By: Jose Hooks on 05-04-2023 Lymphocytes Auto (Unsp spec) [#/Vol] 1.05 10*3/uL 0.83-4.51 [facility] Basophil percentageOrdered B y: Jose Hooks on 05-04-2023 Basophils/100 WBC (Bld) 0.6 % 0-1 [facility] Bilirubin [Mass/Vol] 1.20 mg/dL 0.20-1.00 [facility] Comment on above: For patients on eltr ombopag therapy, use of Dimension [place] TBIL is not recommended. Chloride [Moles/Vol] 111 mmol/L 98-107 [facility] Eosinophils/100 WBC (Bld) 3.6 % 0-5 [facility] Glucose [Mass/Vol] 104 mg/dL 74-106 [facility] Comment on above: Fasting Glucose resu lt from 100 to 125 mg/dL suggests IMPAIRED HOMEOSTASIS per A.D.A. criteria. Neutrophils (Bld) [#/Vol] 5.1 10*3/uL 2.0-7.7 [facility] Neutrophils/100 WBC (Bld) 72.8 % 47-70 [facility] Potassium [Moles/Vol] 4.3 mmol/L 3.5-5.1 [facility] Protein [Mass/Vol] 6.6 g/dL 6.4-8.2 [facility] Sodium [Moles/Vol] 143 mmol/L 136-145 [facility] WBC (Bld) [#/Vol] 7.0 10*3/uL 4.4-11.0 [facility] Blood erythrocytes count (nu mber/volume)Ordered By: Jose Hooks on 05-04-2023 RBC (Bld) [#/Vol] 5.02 10*6/uL 4.6-6.2 [facility] Blood hemoglobin measurement (mass/volume)Ordered By: Jose Hooks on 05-04-2023 Hemoglobin (Bld) [Mass/Vol] 15.8 g/dL 13.0-16.5 [facility] Blood lymphocytes/100 leukoc ytesOrdered By: Jose Hooks on 05-04-2023 Lymphocytes/100 WBC (Bld) 15.1 % 19-41 [facility] Blood monocytes/100 leukocyt esOrdered By: Jose Hooks on 05-04-2023 Monocytes/100 WBC (Bld) 7.5 % 0-10 [facility] Blood platelet mean volumeOr dered By: Jose Hooks on 05-04-2023 Platelet mean volume (Bld) [Entitic vol] 9.3 fL 6.2-12.0 [facility] Determination of erythrocyte mean corpuscular volume (MCV)Ordered By: Jose Hooks on 05-04-2023 MCV (RBC) [Entitic vol] 98.2 fL 80-94 [facility] Hematocrit Auto (Bld) [Volum e fraction]Ordered By: Jose Hooks on 05-04-2023 Hematocrit (Bld) [Volume fraction] 49.3 % 40-54 [facility] Laboratory - Chemistry and C hemistry - challengeOrdered By: Jose Hooks on 05-04-2023 ALP [Catalytic activity/Vol] 64 U/L 45-117 [facility] ALT [Catalytic activity/Vol] 21 U/L 16-61 [facility] CO2 [Moles/Vol] 25.0 mmol/L 21.0-32.0 [facility] Globulin (S) [Mass/Vol] 3.4 g/dL 2.2-4.2 [facility] Urea nitrogen/Creatinine [Mass ratio] 20.3 mg/mg 10-20 [facility] - Hematology and Cell countsOrdered By: Jose Jessee on 05-04-2023 Erythrocyte distribution width (RBC) [Entitic vol] 45.4 fL 35.1-43.9 [facility] Erythrocyte distribution width (RBC) [Ratio] 12.6 % 11.6-14.6 [facility] Immature granulocytes/100 WBC (Bld) 0.400 % 0.0-0.9 [facility] Comment on above: IG% - Immature Granu locytes (promyelocytes, myelocytes and metamyelocytes) > 1% indicates that a LEFT SHIFT is Present. MCH (RBC) [Entitic mass] 31.5 pg 27.0-32.0 [facility] Nucleated RBC/100 WBC (Bld) [Ratio] 0 % 0-5 [facility] MCHC Auto (RBC) [Mass/Vol]Or dered By: Jose Hooks on 05-04-2023 MCHC (RBC) [Mass/Vol] 32.0 g/dL 32-36 [facility] No Panel InformationOrdered By: Jose Hooks on 05-04-2023 Estimated GFR (MDRD) Amer 66 mL/min >60 [facility] Comment on above: GFR Calc Estimated GFR (MDRD) Non-Af Amer 55 mL/min >60 [facility] Comment on above: Non- GFR Calc Thyroid Stimulating Hormone (TSH) 0.98 uIU/mL 0.358-3.74 [facility] Platelets bldOrdered By: Jose Hooks on 05-04-2023 Platelets (Bld) [#/Vol] 297 10*3/uL 150-450 [facility] Serum or plasma albumin ambar urement (mass/volume)Ordered By: Jose Hooks on 05-04-2023 Albumin [Mass/Vol] 3.2 g/dL 3.2-5.0 [facility] Serum or plasma albumin/glob ulin mass ratioOrdered By: Jose Hooks on 05-04-2023 Albumin/Globulin [Mass ratio] 0.9 {ratio} 0.9-2.4 [facility] Serum or plasma calcium ambar urement (mass/volume)Ordered By: Jose Hooks on 05-04-2023 Calcium [Mass/Vol] 9.0 mg/dL 8.5-10.1 [facility] Serum or plasma creatinine m easurement (mass/volume)Ordered By: Jose Hooks on 05-04-2023 Creatinine [Mass/Vol] 1.33 mg/dL 0.70-1.30 [facility] Comment on above: The validity of the calculated GFR & GFRAA in patients over 70 years has not been determined. Clinical correlation is essential. Serum or plasma urea nitroge n measurement (mass/volume)Ordered By: Jose Hooks on 05-04-2023 Urea nitrogen [Mass/Vol] 27 mg/dL 7-18 [facility] Thin prep Papanicolaou smear with manual screeningOrdered By: Jose Hooks 05-04-2023 Thin prep Papanicolaou smear with manual screening 13 U/L 15-37 [facility] Thin prep Papanicolaou smear with manual screening 7 5-15 [facility] Basophil percentageOrdered B y: Myrna Bridges on 04-08-2023 Bilirubin [Mass/Vol] 1.00 mg/dL 0.20-1.00 [facility] Comment on above: For patients on eltr ombopag therapy, use of Dimension [place] TBIL is not recommended. Cholesterol [Mass/Vol] 107 mg/dL <200 [facility] Comment on above: <200 mg/dL Desirable 200-240 mg/dL Borderline >240 mg/dL High Risk Protein [Mass/Vol] 6.7 g/dL 6.4-8.2 [facility] Triglyceride [Mass/Vol] 112 mg/dL <199 [facility] Comment on above: The drugs N-Acetylcy steine and Metamizole may falsely depress this assay.Serum Triglycerides Reference Interval Normal <150 mg/dL Borderline high 150 - 199 mg/dL High 200 - 499 mg/dL Very High > or = 500 mg/dL Basophil percentageOrdered B y: Melody Whitmore on 04-08-2023 Chloride [Moles/Vol] 110 mmol/L 98-107 [facility] Glucose [Mass/Vol] 162 mg/dL 74-106 [facility] Comment on above: Fasting Glucose resu lt greater than or equal to 126 mg/dL suggests DIABETES MELLITUS per A.D.A. criteria. Potassium [Moles/Vol] 4.6 mmol/L 3.5-5.1 [facility] Sodium [Moles/Vol] 142 mmol/L 136-145 [facility] Direct bilirubinOrdered By: Myrna Bridges on 04-08-2023 Bilirubin.direct [Mass/Vol] 0.24 mg/dL 0.00-0.30 [facility] - Chemistry and C hemistry - challengeOrdered By: Myrna Bridges on 04-08-2023 ALP [Catalytic activity/Vol] 66 U/L 45-117 [facility] ALT [Catalytic activity/Vol] 15 U/L 16-61 [facility] Globulin (S) [Mass/Vol] 2.9 g/dL 2.2-4.2 [facility] Laboratory - Chemistry and C hemistry - challengeOrdered By: Melody Whitmore on 04-08-2023 CO2 [Moles/Vol] 26.0 mmol/L 21.0-32.0 [facility] Magnesium [Mass/Vol] 2.4 mg/dL 1.6-2.6 [facility] Urea nitrogen/Creatinine [Mass ratio] 19.1 mg/mg 10-20 [facility] No Panel InformationOrdered By: Melody Whitmore on 04-08-2023 Estimated GFR (MDRD) Amer 55 mL/min >60 [facility] Comment on above: GFR Calc Estimated GFR (MDRD) Non-Af Amer 45 mL/min >60 [facility] Comment on above: Non- GFR Calc Serum or plasma albumin ambar urement (mass/volume)Ordered By: Myrna Bridges on 04-08-2023 Albumin [Mass/Vol] 3.8 g/dL 3.2-5.0 [facility] Serum or plasma calcium ambar urement (mass/volume)Ordered By: Melody Whitmore on 04-08-2023 Calcium [Mass/Vol] 9.1 mg/dL 8.5-10.1 [facility] Serum or plasma cholesterol in HDL measurement (mass/volume)Ordered By: Myrna Bridges on 04-08-2023 Cholesterol in HDL [Mass/Vol] 45 mg/dL >40 [facility] Comment on above: The drugs N-Acetylcy steine and Metamizole may falsely depress this assay. Reference Range HDL <40 mg/dL Low HDL Cholesterol HDL >or= 60 mg/dL High HDL Cholesterol Serum or plasma cholesterol in VLDL measurement (mass/volume)Ordered By: Myrna Bridges on 04-08-2023 Cholesterol in VLDL [Mass/Vol] 22 mg/dL 5-40 [facility] Serum or plasma creatinine m easurement (mass/volume)Ordered By: Melody Whitmore on 04-08-2023 Creatinine [Mass/Vol] 1.57 mg/dL 0.70-1.30 [facility] Comment on above: The validity of the calculated GFR & GFRAA in patients over 70 years has not been determined. Clinical correlation is essential. Serum or plasma low density lipoprotein (LDL) cholesterol measurement (mass/volume)Ordered By: Myrna Bridges on 04-08-2023 Cholesterol in LDL [Mass/Vol] 40 mg/dL 0-130 [facility] Serum or plasma urea nitroge n measurement (mass/volume)Ordered By: Melody Whitmore on 04-08-2023 Urea nitrogen [Mass/Vol] 30 mg/dL 7-18 [facility] Thin prep Papanicolaou smear with manual screeningOrdered By: Myrna Bridges on 04-08-2023 Thin prep Papanicolaou smear with manual screening 12 U/L 15-37 [facility] Thin prep Papanicolaou smear with manual screeningOrdered By: Melody Whitmore on 04-08-2023 Thin prep Papanicolaou smear with manual screening 6 5-15 [facility] - Microbiology an d Antimicrobial susceptibilityOrdered By: Jose Hooks on 02-05-2023 SARS-CoV-2 (COVID-19) RNA [place]+probe Ql (Unsp spec) [facility] SARS-CoV-2 (COVID-19) RNA [place]+probe Ql (Unsp spec) [facility] No Panel InformationOrdered By: Jose Hooks on 02-05-2023 Influenza Types A,B Direct FA (CHRIS) [facility] Influenza Types A,B Direct FA (CHRIS) [facility] RSV Ag EIAOrdered By: Jose bull on 02-05-2023 RSV Ag Immune stain Ql (Tiss) [facility] RSV Ag Immune stain Ql (Tiss) [facility] Basophil percentageOrdered B y: Melody Whitmore on 01-06-2023 Bilirubin [Mass/Vol] 1.00 mg/dL 0.20-1.00 [facility] Comment on above: For patients on eltr ombopag therapy, use of Dimension [place] TBIL is not recommended. Chloride [Moles/Vol] 110 mmol/L 98-107 [facility] Glucose [Mass/Vol] 87 mg/dL 74-106 [facility] Potassium [Moles/Vol] 3.7 mmol/L 3.5-5.1 [facility] Protein [Mass/Vol] 5.5 g/dL 6.4-8.2 [facility] Sodium [Moles/Vol] 140 mmol/L 136-145 [facility] WBC (Bld) [#/Vol] 6.5 10*3/uL 4.4-11.0 [facility] Blood erythrocytes count (nu mber/volume)Ordered By: Melody Whitmore on 01-06-2023 RBC (Bld) [#/Vol] 4.31 10*6/uL 4.6-6.2 [facility] Blood hemoglobin measurement (mass/volume)Ordered By: Melody Whitmore on 01-06-2023 Hemoglobin (Bld) [Mass/Vol] 13.7 g/dL 13.0-16.5 [facility] Blood platelet mean volumeOr dered By: Melody Whitmore on 01-06-2023 Platelet mean volume (Bld) [Entitic vol] 9.3 fL 6.2-12.0 [facility] Determination of erythrocyte mean corpuscular volume (MCV)Ordered By: Melody Whitmore on 01-06-2023 MCV (RBC) [Entitic vol] 93.0 fL 80-94 [facility] Hematocrit Auto (Bld) [Volum e fraction]Ordered By: Melody Whitmore on 01-06-2023 Hematocrit (Bld) [Volume fraction] 40.1 % 40-54 [facility] Laboratory - Chemistry and C hemistry - challengeOrdered By: Melody Whitmore on 01-06-2023 ALP [Catalytic activity/Vol] 60 U/L 45-117 [facility] ALT [Catalytic activity/Vol] 29 U/L 16-61 [facility] CO2 [Moles/Vol] 26.0 mmol/L 21.0-32.0 [facility] Globulin (S) [Mass/Vol] 2.7 g/dL 2.2-4.2 [facility] Urea nitrogen/Creatinine [Mass ratio] 14.5 mg/mg 10-20 [facility] - Hematology and Cell countsOrdered By: Melody Whitmore on 01-06-2023 Erythrocyte distribution width (RBC) [Entitic vol] 42.2 fL 35.1-43.9 [facility] Erythrocyte distribution width (RBC) [Ratio] 12.2 % 11.6-14.6 [facility] MCH (RBC) [Entitic mass] 31.8 pg 27.0-32.0 [facility] MCHC Auto (RBC) [Mass/Vol]Or dered By: Melody Whitmore on 01-06-2023 MCHC (RBC) [Mass/Vol] 34.2 g/dL 32-36 [facility] No Panel InformationOrdered By: Melody Whitmore on 01-06-2023 Estimated Creatinine Clearance Calc 51.99 ml/min [facility] Estimated GFR (MDRD) Amer 77 mL/min >60 [facility] Comment on above: GFR Calc Estimated GFR (MDRD) Non-Af Amer 64 mL/min >60 [facility] Comment on above: Non- GFR Calc Platelets bldOrdered By: Latoya Whitmore on 01-06-2023 Platelets (Bld) [#/Vol] 252 10*3/uL 150-450 [facility] Serum or plasma albumin ambar urement (mass/volume)Ordered By: Melody Whitmore on 01-06-2023 Albumin [Mass/Vol] 2.8 g/dL 3.2-5.0 [facility] Serum or plasma albumin/glob ulin mass ratioOrdered By: Melody Whitmore on 01-06-2023 Albumin/Globulin [Mass ratio] 1.0 {ratio} 0.9-2.4 [facility] Serum or plasma calcium ambar urement (mass/volume)Ordered By: Melodyberny Whitmore on 01-06-2023 Calcium [Mass/Vol] 8.3 mg/dL 8.5-10.1 [facility] Serum or plasma creatinine m easurement (mass/volume)Ordered By: Melody Whitmore on 01-06-2023 Creatinine [Mass/Vol] 1.17 mg/dL 0.70-1.30 [facility] Comment on above: The validity of the calculated GFR & GFRAA in patients over 70 years has not been determined. Clinical correlation is essential. Serum or plasma urea nitroge n measurement (mass/volume)Ordered By: Melodyberny Whitmore on 01-06-2023 Urea nitrogen [Mass/Vol] 17 mg/dL 7-18 [facility] Thin prep Papanicolaou smear with manual screeningOrdered By: Melodyberny Whitmore on 01-06-2023 Thin prep Papanicolaou smear with manual screening 20 U/L 15-37 [facility] Thin prep Papanicolaou smear with manual screening 4 5-15 [facility] No Panel InformationOrdered By: Melody Whitmore on 01-05-2023 Activated Clotting Time 221 sec 74-137 [facility] Absolute lymphocyte countOrd ered By: Jose Hooks on 12-24-2022 Lymphocytes Auto (Unsp spec) [#/Vol] 1.28 10*3/uL 0.83-4.51 [facility] Basophil percentageOrdered B y: Jose Hooks on 12-24-2022 Basophils/100 WBC (Bld) 0.8 % 0-1 [facility] Bilirubin [Mass/Vol] 1.30 mg/dL 0.20-1.00 [facility] Comment on above: For patients on eltr ombopag therapy, use of Dimension [place] TBIL is not recommended. Chloride [Moles/Vol] 110 mmol/L 98-107 [facility] Eosinophils/100 WBC (Bld) 3.9 % 0-5 [facility] Glucose [Mass/Vol] 105 mg/dL 74-106 [facility] Comment on above: Fasting Glucose resu lt from 100 to 125 mg/dL suggests IMPAIRED HOMEOSTASIS per A.D.A. criteria. Neutrophils (Bld) [#/Vol] 4.0 10*3/uL 2.0-7.7 [facility] Neutrophils/100 WBC (Bld) 64.7 % 47-70 [facility] Potassium [Moles/Vol] 3.8 mmol/L 3.5-5.1 [facility] Protein [Mass/Vol] 6.4 g/dL 6.4-8.2 [facility] Sodium [Moles/Vol] 142 mmol/L 136-145 [facility] WBC (Bld) [#/Vol] 6.1 10*3/uL 4.4-11.0 [facility] Blood erythrocytes count (nu mber/volume)Ordered By: Jose Hooks on 12-24-2022 RBC (Bld) [#/Vol] 4.68 10*6/uL 4.6-6.2 [facility] Blood hemoglobin measurement (mass/volume)Ordered By: Jose Hooks on 12-24-2022 Hemoglobin (Bld) [Mass/Vol] 15.1 g/dL 13.0-16.5 [facility] Blood lymphocytes/100 leukoc ytesOrdered By: Jose Hooks on 12-24-2022 Lymphocytes/100 WBC (Bld) 20.9 % 19-41 [facility] Blood monocytes/100 leukocyt esOrdered By: Jose Hooks on 12-24-2022 Monocytes/100 WBC (Bld) 9.2 % 0-10 [facility] Blood platelet mean volumeOr dered By: Jose Hooks on 12-24-2022 Platelet mean volume (Bld) [Entitic vol] 9.7 fL 6.2-12.0 [facility] Determination of erythrocyte mean corpuscular volume (MCV)Ordered By: Jose Hooks on 12-24-2022 MCV (RBC) [Entitic vol] 97.6 fL 80-94 [facility] Hematocrit Auto (Bld) [Volum e fraction]Ordered By: Jose Hooks on 12-24-2022 Hematocrit (Bld) [Volume fraction] 45.7 % 40-54 [facility] Laboratory - Chemistry and C hemistry - challengeOrdered By: Jose Hooks on 12-24-2022 ALP [Catalytic activity/Vol] 62 U/L 45-117 [facility] ALT [Catalytic activity/Vol] 20 U/L 16-61 [facility] CO2 [Moles/Vol] 27.0 mmol/L 21.0-32.0 [facility] Globulin (S) [Mass/Vol] 3.3 g/dL 2.2-4.2 [facility] Urea nitrogen/Creatinine [Mass ratio] 14.7 mg/mg 10-20 [facility] - Hematology and Cell countsOrdered By: Jose Hooks on 12-24-2022 Erythrocyte distribution width (RBC) [Entitic vol] 45.3 fL 35.1-43.9 [facility] Erythrocyte distribution width (RBC) [Ratio] 12.6 % 11.6-14.6 [facility] Immature granulocytes/100 WBC (Bld) 0.500 % 0.0-0.9 [facility] Comment on above: IG% - Immature Granu locytes (promyelocytes, myelocytes and metamyelocytes) > 1% indicates that a LEFT SHIFT is Present. MCH (RBC) [Entitic mass] 32.3 pg 27.0-32.0 [facility] Nucleated RBC/100 WBC (Bld) [Ratio] 0 % 0-5 [facility] MCHC Auto (RBC) [Mass/Vol]Or dered By: Jose Hooks on 12-24-2022 MCHC (RBC) [Mass/Vol] 33.0 g/dL 32-36 [facility] No Panel InformationOrdered By: Jose Hooks on 12-24-2022 Estimated GFR (MDRD) Amer 58 mL/min >60 [facility] Comment on above: GFR Calc Estimated GFR (MDRD) Non-Af Amer 48 mL/min >60 [facility] Comment on above: Non- GFR Calc Thyroid Stimulating Hormone (TSH) 0.78 uIU/mL 0.358-3.74 [facility] Vitamin D 25-Hydroxy 84.7 ng/mL [facility] Comment on above: Vitamin D 25(OH) Sta tus Range Deficiency <20 ng/mL (50nmol/L) Insufficiency 20 - 30 ng/mL (50 - 75 nmol/L) Sufficiency 30 - 100 ng/mL (75 - 250 nmol/L) Toxicity >100 ng/mL (>250 nmol/L) Platelets bldOrdered By: Jose Hooks on 12-24-2022 Platelets (Bld) [#/Vol] 316 10*3/uL 150-450 [facility] Serum or plasma albumin ambar urement (mass/volume)Ordered By: Jose Hooks on 12-24-2022 Albumin [Mass/Vol] 3.1 g/dL 3.2-5.0 [facility] Serum or plasma albumin/glob ulin mass ratioOrdered By: Jose Hooks on 12-24-2022 Albumin/Globulin [Mass ratio] 0.9 {ratio} 0.9-2.4 [facility] Serum or plasma calcium ambar urement (mass/volume)Ordered By: Jose Hooks on 12-24-2022 Calcium [Mass/Vol] 8.7 mg/dL 8.5-10.1 [facility] Serum or plasma creatinine m easurement (mass/volume)Ordered By: Jose Hooks 12-24-2022 Creatinine [Mass/Vol] 1.50 mg/dL 0.70-1.30 [facility] Comment on above: The validity of the calculated GFR & GFRAA in patients over 70 years has not been determined. Clinical correlation is essential. Serum or plasma urea nitroge n measurement (mass/volume)Ordered By: Jose Hooks on 12-24-2022 Urea nitrogen [Mass/Vol] 22 mg/dL 7-18 [facility] Thin prep Papanicolaou smear with manual screeningOrdered By: Jose Hooks on 12-24-2022 Thin prep Papanicolaou smear with manual screening 12 U/L 15-37 [facility] Thin prep Papanicolaou smear with manual screening 5 5-15 [facility] Absolute lymphocyte countOrd ered By: Emre Hussein on 11-17-2022 Lymphocytes Auto (Unsp spec) [#/Vol] 0.94 10*3/uL 0.83-4.51 [facility] Basophil percentageOrdered B y: Emre Hussein on 11-17-2022 Basophils/100 WBC (Bld) 0.2 % 0-1 [facility] Chloride [Moles/Vol] 110 mmol/L 98-107 [facility] Eosinophils/100 WBC (Bld) 0.0 % 0-5 [facility] Glucose [Mass/Vol] 114 mg/dL 74-106 [facility] Comment on above: Fasting Glucose resu lt from 100 to 125 mg/dL suggests IMPAIRED HOMEOSTASIS per A.D.A. criteria. Neutrophils (Bld) [#/Vol] 9.0 10*3/uL 2.0-7.7 [facility] Neutrophils/100 WBC (Bld) 82.4 % 47-70 [facility] Potassium [Moles/Vol] 4.5 mmol/L 3.5-5.1 [facility] Sodium [Moles/Vol] 143 mmol/L 136-145 [facility] WBC (Bld) [#/Vol] 10.9 10*3/uL 4.4-11.0 [facility] Blood erythrocytes count (nu mber/volume)Ordered By: Emre Hussein on 11-17-2022 RBC (Bld) [#/Vol] 4.64 10*6/uL 4.6-6.2 [facility] Blood hemoglobin measurement (mass/volume)Ordered By: Emre Hussein on 11-17-2022 Hemoglobin (Bld) [Mass/Vol] 14.5 g/dL 13.0-16.5 [facility] Blood lymphocytes/100 leukoc ytesOrdered By: Emre Hussein on 11-17-2022 Lymphocytes/100 WBC (Bld) 8.6 % 19-41 [facility] Blood monocytes/100 leukocyt esOrdered By: Emre Hussein on 11-17-2022 Monocytes/100 WBC (Bld) 7.6 % 0-10 [facility] Blood platelet mean volumeOr dered By: Emre Hussein on 11-17-2022 Platelet mean volume (Bld) [Entitic vol] 9.5 fL 6.2-12.0 [facility] Determination of erythrocyte mean corpuscular volume (MCV)Ordered By: Emre Hussein on 11-17-2022 MCV (RBC) [Entitic vol] 94.6 fL 80-94 [facility] Hematocrit Auto (Bld) [Volum e fraction]Ordered By: Emre Hussein on 11-17-2022 Hematocrit (Bld) [Volume fraction] 43.9 % 40-54 [facility] Laboratory - Chemistry and C hemistry - challengeOrdered By: Emre Hussein on 11-17-2022 CO2 [Moles/Vol] 29.0 mmol/L 21.0-32.0 [facility] Urea nitrogen/Creatinine [Mass ratio] 23.7 mg/mg 10-20 [facility] Laboratory - Hematology and Cell countsOrdered By: Emre Hussein on 11-17-2022 Erythrocyte distribution width (RBC) [Entitic vol] 43.5 fL 35.1-43.9 [facility] Erythrocyte distribution width (RBC) [Ratio] 12.4 % 11.6-14.6 [facility] Immature granulocytes/100 WBC (Bld) 1.200 % 0.0-0.9 [facility] Comment on above: IG% - Immature Granu locytes (promyelocytes, myelocytes and metamyelocytes) > 1% indicates that a LEFT SHIFT is Present. MCH (RBC) [Entitic mass] 31.3 pg 27.0-32.0 [facility] Nucleated RBC/100 WBC (Bld) [Ratio] 0 % 0-5 [facility] MCHC Auto (RBC) [Mass/Vol]Or dered By: Emre Hussein on 11-17-2022 MCHC (RBC) [Mass/Vol] 33.0 g/dL 32-36 [facility] No Panel InformationOrdered By: Emre Hussein on 11-17-2022 Estimated Creatinine Clearance Calc 45.14 ml/min [facility] Estimated GFR (MDRD) Amer 63 mL/min >60 [facility] Comment on above: GFR Calc Estimated GFR (MDRD) Non-Af Amer 52 mL/min >60 [facility] Comment on above: Non- GFR Calc Troponin I High Sensitivity 8 pg/mL 3.0-78.0 [facility] Comment on above: Please Note: [place] t Units and Gender Specific Reference Ranges. For more information see Policy Stat Procedure [place] High Sensitivity Troponin (TNIH) and attachments. Platelets bldOrdered By: Jose Hussein on 11-17-2022 Platelets (Bld) [#/Vol] 306 10*3/uL 150-450 [facility] Serum or plasma calcium ambar urement (mass/volume)Ordered By: Emre Hussein on 11-17-2022 Calcium [Mass/Vol] 9.2 mg/dL 8.5-10.1 [facility] Serum or plasma creatinine m easurement (mass/volume)Ordered By: Emre Hussein on 11-17-2022 Creatinine [Mass/Vol] 1.39 mg/dL 0.70-1.30 [facility] Comment on above: The validity of the calculated GFR & GFRAA in patients over 70 years has not been determined. Clinical correlation is essential. Serum or plasma urea nitroge n measurement (mass/volume)Ordered By: Emre Hussein on 11-17-2022 Urea nitrogen [Mass/Vol] 33 mg/dL 7-18 [facility] Thin prep Papanicolaou smear with manual screeningOrdered By: Emre Hussein on 11-17-2022 Thin prep Papanicolaou smear with manual screening 4 5-15 [facility] Basophil percentageOrdered B y: Dr. Whitmore on 11-06-2022 Bilirubin [Mass/Vol] 1.40 mg/dL 0.20-1.00 [facility] Comment on above: For patients on eltr ombopag therapy, use of Dimension [place] TBIL is not recommended. Chloride [Moles/Vol] 103 mmol/L 98-107 [facility] Cholesterol [Mass/Vol] 242 mg/dL <200 [facility] Comment on above: <200 mg/dL Desirable 200-240 mg/dL Borderline >240 mg/dL High Risk Glucose [Mass/Vol] 113 mg/dL 74-106 [facility] Comment on above: Fasting Glucose resu lt from 100 to 125 mg/dL suggests IMPAIRED HOMEOSTASIS per A.D.A. criteria. Potassium [Moles/Vol] 4.0 mmol/L 3.5-5.1 [facility] Protein [Mass/Vol] 7.1 g/dL 6.4-8.2 [facility] Sodium [Moles/Vol] 142 mmol/L 136-145 [facility] Triglyceride [Mass/Vol] 247 mg/dL <199 [facility] Comment on above: The drugs N-Acetylcy steine and Metamizole may falsely depress this assay.Serum Triglycerides Reference Interval Normal <150 mg/dL Borderline high 150 - 199 mg/dL High 200 - 499 mg/dL Very High > or = 500 mg/dL Laboratory - Chemistry and C hemistry - challengeOrdered By: Dr. Whitmore on 11-06-2022 ALP [Catalytic activity/Vol] 79 U/L 45-117 [facility] ALT [Catalytic activity/Vol] 25 U/L 16-61 [facility] CO2 [Moles/Vol] 31.0 mmol/L 21.0-32.0 [facility] Globulin (S) [Mass/Vol] 3.7 g/dL 2.2-4.2 [facility] Natriuretic peptide B (Bld) [Mass/Vol] 59.8 pg/mL 0-100 [facility] Urea nitrogen/Creatinine [Mass ratio] 23.4 mg/mg 10-20 [facility] No Panel InformationOrdered By: Dr. Whitmore on 11-06-2022 Estimated GFR (MDRD) Amer 46 mL/min >60 [facility] Comment on above: GFR Calc Estimated GFR (MDRD) Non-Af Amer 38 mL/min >60 [facility] Comment on above: Non- GFR Calc Serum or plasma albumin ambar urement (mass/volume)Ordered By: Dr. Whitmore on 11-06-2022 Albumin [Mass/Vol] 3.4 g/dL 3.2-5.0 [facility] Serum or plasma albumin/glob ulin mass ratioOrdered By: Dr. Whitmore on 11-06-2022 Albumin/Globulin [Mass ratio] 0.9 {ratio} 0.9-2.4 [facility] Serum or plasma calcium ambar urement (mass/volume)Ordered By: Dr. Whitmore on 11-06-2022 Calcium [Mass/Vol] 9.1 mg/dL 8.5-10.1 [facility] Serum or plasma cholesterol in HDL measurement (mass/volume)Ordered By: Dr. Whitmore on 11-06-2022 Cholesterol in HDL [Mass/Vol] 37 mg/dL >40 [facility] Comment on above: The drugs N-Acetylcy steine and Metamizole may falsely depress this assay. Reference Range HDL <40 mg/dL Low HDL Cholesterol HDL >or= 60 mg/dL High HDL Cholesterol Serum or plasma cholesterol in VLDL measurement (mass/volume)Ordered By: Dr. Whitmore on 11-06-2022 Cholesterol in VLDL [Mass/Vol] 49 mg/dL 5-40 [facility] Serum or plasma creatinine m easurement (mass/volume)Ordered By: Dr. Whitmore on 11-06-2022 Creatinine [Mass/Vol] 1.84 mg/dL 0.70-1.30 [facility] Comment on above: The validity of the calculated GFR & GFRAA in patients over 70 years has not been determined. Clinical correlation is essential. Serum or plasma low density lipoprotein (LDL) cholesterol measurement (mass/volume)Ordered By: Dr. Whitmore on 11-06-2022 Cholesterol in LDL [Mass/Vol] 156 mg/dL 0-130 [facility] Serum or plasma urea nitroge n measurement (mass/volume)Ordered By: Dr. Whitmore on 11-06-2022 Urea nitrogen [Mass/Vol] 43 mg/dL 7-18 [facility] Thin prep Papanicolaou smear with manual screeningOrdered By: Dr. Whitmore on 11-06-2022 Thin prep Papanicolaou smear with manual screening 14 U/L 15-37 [facility] Thin prep Papanicolaou smear with manual screening 8 5-15 [facility] Basophil percentageOrdered B y: Myrna Bridges on 10-30-2022 Bilirubin [Mass/Vol] 1.20 mg/dL 0.20-1.00 [facility] Comment on above: For patients on eltr ombopag therapy, use of Dimension [place] TBIL is not recommended. Chloride [Moles/Vol] 112 mmol/L 98-107 [facility] Glucose [Mass/Vol] 75 mg/dL 74-106 [facility] Potassium [Moles/Vol] 4.3 mmol/L 3.5-5.1 [facility] Protein [Mass/Vol] 6.3 g/dL 6.4-8.2 [facility] Sodium [Moles/Vol] 145 mmol/L 136-145 [facility] WBC (Bld) [#/Vol] 7.0 10*3/uL 4.4-11.0 [facility] Blood erythrocytes count (nu mber/volume)Ordered By: Myrna Bridges on 10-30-2022 RBC (Bld) [#/Vol] 4.89 10*6/uL 4.6-6.2 [facility] Blood hemoglobin measurement (mass/volume)Ordered By: Myrna Bridges on 10-30-2022 Hemoglobin (Bld) [Mass/Vol] 15.4 g/dL 13.0-16.5 [facility] Blood platelet mean volumeOr dered By: Myrna Bridges on 10-30-2022 Platelet mean volume (Bld) [Entitic vol] 9.5 fL 6.2-12.0 [facility] Determination of erythrocyte mean corpuscular volume (MCV)Ordered By: Myrna Bridges on 10-30-2022 MCV (RBC) [Entitic vol] 96.1 fL 80-94 [facility] Hematocrit Auto (Bld) [Volum e fraction]Ordered By: Myrna Bridges on 10-30-2022 Hematocrit (Bld) [Volume fraction] 47.0 % 40-54 [facility] Laboratory - Chemistry and C hemistry - challengeOrdered By: Myrna Bridges on 10-30-2022 ALP [Catalytic activity/Vol] 64 U/L 45-117 [facility] ALT [Catalytic activity/Vol] 17 U/L 16-61 [facility] CO2 [Moles/Vol] 28.0 mmol/L 21.0-32.0 [facility] Globulin (S) [Mass/Vol] 3.2 g/dL 2.2-4.2 [facility] Magnesium [Mass/Vol] 2.6 mg/dL 1.6-2.6 [facility] Natriuretic peptide B (Bld) [Mass/Vol] 290.8 pg/mL 0-100 [facility] T4 [Mass/Vol] 11.5 ug/dL 4.5-12.1 [facility] Urea nitrogen/Creatinine [Mass ratio] 16.4 mg/mg 10-20 [facility] Laboratory - Hematology and Cell countsOrdered By: Myrna Bridges on 10-30-2022 Erythrocyte distribution width (RBC) [Entitic vol] 45.2 fL 35.1-43.9 [facility] Erythrocyte distribution width (RBC) [Ratio] 12.6 % 11.6-14.6 [facility] MCH (RBC) [Entitic mass] 31.5 pg 27.0-32.0 [facility] MCHC Auto (RBC) [Mass/Vol]Or dered By: Myrna Bridges on 10-30-2022 MCHC (RBC) [Mass/Vol] 32.8 g/dL 32-36 [facility] No Panel InformationOrdered By: Myrna Bridges on 10-30-2022 Estimated GFR (MDRD) Amer 66 mL/min >60 [facility] Comment on above: GFR Calc Estimated GFR (MDRD) Non-Af Amer 55 mL/min >60 [facility] Comment on above: Non- GFR Calc Thyroid Stimulating Hormone (TSH) 0.90 uIU/mL 0.358-3.74 [facility] Platelets bldOrdered By: Gopal Bridges on 10-30-2022 Platelets (Bld) [#/Vol] 287 10*3/uL 150-450 [facility] Serum or plasma albumin ambar urement (mass/volume)Ordered By: Myrna Bridges on 10-30-2022 Albumin [Mass/Vol] 3.1 g/dL 3.2-5.0 [facility] Serum or plasma albumin/glob ulin mass ratioOrdered By: Myrna Bridges on 10-30-2022 Albumin/Globulin [Mass ratio] 1.0 {ratio} 0.9-2.4 [facility] Serum or plasma calcium ambar urement (mass/volume)Ordered By: Myrna Bridges on 10-30-2022 Calcium [Mass/Vol] 8.9 mg/dL 8.5-10.1 [facility] Serum or plasma creatinine m easurement (mass/volume)Ordered By: Myrna Bridges on 10-30-2022 Creatinine [Mass/Vol] 1.34 mg/dL 0.70-1.30 [facility] Comment on above: The validity of the calculated GFR & GFRAA in patients over 70 years has not been determined. Clinical correlation is essential. Serum or plasma urea nitroge n measurement (mass/volume)Ordered By: Myrna Bridges on 10-30-2022 Urea nitrogen [Mass/Vol] 22 mg/dL 7-18 [facility] Thin prep Papanicolaou smear with manual screeningOrdered By: Myrna Bridges on 10-30-2022 Thin prep Papanicolaou smear with manual screening 13 U/L 15-37 [facility] Thin prep Papanicolaou smear with manual screening 5 5-15 [facility] Basophil percentageOrdered B y: Dr. Ca on 09-09-2022 Basophil percentage 2.4 mg/dL 2.5-4.9 [facility] Chloride [Moles/Vol] 111 mmol/L 98-107 [facility] Glucose [Mass/Vol] 85 mg/dL 74-106 [facility] Potassium [Moles/Vol] 3.8 mmol/L 3.5-5.1 [facility] Sodium [Moles/Vol] 144 mmol/L 136-145 [facility] Laboratory - Chemistry and C hemistry - challengeOrdered By: Dr. Ca on 09-09-2022 CO2 [Moles/Vol] 28.0 mmol/L 21.0-32.0 [facility] Urea nitrogen/Creatinine [Mass ratio] 14.4 mg/mg 10-20 [facility] No Panel InformationOrdered By: Dr. Ca on 09-09-2022 Estimated GFR (MDRD) Amer 63 mL/min >60 [facility] Comment on above: GFR Calc Estimated GFR (MDRD) Non-Af Amer 52 mL/min >60 [facility] Comment on above: Non- GFR Calc Serum or plasma albumin ambar urement (mass/volume)Ordered By: Dr. Ca on 09-09-2022 Albumin [Mass/Vol] 3.0 g/dL 3.2-5.0 [facility] Serum or plasma calcium ambar urement (mass/volume)Ordered By: Dr. Ca on 09-09-2022 Calcium [Mass/Vol] 8.8 mg/dL 8.5-10.1 [facility] Serum or plasma creatinine m easurement (mass/volume)Ordered By: Dr. Ca on 09-09-2022 Creatinine [Mass/Vol] 1.39 mg/dL 0.70-1.30 [facility] Comment on above: The validity of the calculated GFR & GFRAA in patients over 70 years has not been determined. Clinical correlation is essential. Serum or plasma urea nitroge n measurement (mass/volume)Ordered By: Dr. Ca on 09-09-2022 Urea nitrogen [Mass/Vol] 20 mg/dL 7-18 [facility] No Panel InformationOrdered By: Dr. Hooks on 08-04-2022 Thyroid Stimulating Hormone (TSH) 2.28 uIU/mL 0.358-3.74 [facility] Culture, urineOrdered By: Xu Hooks on 07-24-2022 Bacteria identified Cx Nom (U) Culture exhibits no growth. [facility] COVID-19 virus antigen assay Ordered By: Dr. Hooks on 07-22-2022 SARS-CoV-2 (COVID-19) Ag IA.rapid Ql (Resp) Not detected Not Detect [facility] Comment on above: Normal Reference Ran ge: Not DetectedMethod:(RT-PCR) real-time reverse transcriptase PCRLuminex TONY Instrument*The Food and Drug Administration (FDA) has issued an Emergency Use Authorization (EAU) for the TONY SARS-CoV-2 Assay for the rapid detection of the virus that causes COVID-19. This test has been validated, but the FDAs independent review of this validation is pending.*Negative results do not preclude infection and should not be used as the sole basis for treatment or patient management. Optimum specimen types and timing for peak viral levels during infections caused by SARS-CoV-2 have not been determined. Collection of multiple specimens from the same patient may be necessary to detect the virus. The possibility of a false negative result should be considered if the patient has clinical presentation or has had recent exposure. Culture, urineOrdered By: Dr Shane Hooks on 07-12-2022 Bacteria identified Cx Nom (U) Culture exhibits no growth. [facility] Absolute lymphocyte countOrd ered By: Dr. Hooks on 06-19-2022 Lymphocytes Auto (Unsp spec) [#/Vol] 1.23 10*3/uL 0.83-4.51 [facility] Basophil percentageOrdered B y: Dr. Hooks on 06-19-2022 Basophils/100 WBC (Bld) 0.7 % 0-1 [facility] Bilirubin [Mass/Vol] 0.90 mg/dL 0.20-1.00 [facility] Comment on above: Slight Lipemia, Resu lt may be falsely increased. For patients on eltrombopag therapy, use of Dimension [place] TBIL is not recommended. Chloride [Moles/Vol] 110 mmol/L 98-107 [facility] Eosinophils/100 WBC (Bld) 3.4 % 0-5 [facility] Glucose [Mass/Vol] 82 mg/dL 74-106 [facility] Comment on above: Slight Lipemia, Resu lt may be falsely increased. Neutrophils (Bld) [#/Vol] 4.5 10*3/uL 2.0-7.7 [facility] Neutrophils/100 WBC (Bld) 66.5 % 47-70 [facility] Potassium [Moles/Vol] 4.7 mmol/L 3.5-5.1 [facility] Comment on above: Slight Lipemia, Resu lt may be falsely increased. Protein [Mass/Vol] 6.6 g/dL 6.4-8.2 [facility] Comment on above: Slight Lipemia, Resu lt may be falsely increased. Sodium [Moles/Vol] 143 mmol/L 136-145 [facility] WBC (Bld) [#/Vol] 6.8 10*3/uL 4.4-11.0 [facility] Blood erythrocytes count (nu mber/volume)Ordered By: Dr. Hooks on 06-19-2022 RBC (Bld) [#/Vol] 4.65 10*6/uL 4.6-6.2 [facility] Blood hemoglobin measurement (mass/volume)Ordered By: Dr. Hooks on 06-19-2022 Hemoglobin (Bld) [Mass/Vol] 15.2 g/dL 13.0-16.5 [facility] Blood lymphocytes/100 leukoc ytesOrdered By: Dr. Hooks on 06-19-2022 Lymphocytes/100 WBC (Bld) 18.0 % 19-41 [facility] Blood monocytes/100 leukocyt esOrdered By: Dr. Hooks on 06-19-2022 Monocytes/100 WBC (Bld) 11.3 % 0-10 [facility] Blood platelet mean volumeOr dered By: Dr. Hooks on 06-19-2022 Platelet mean volume (Bld) [Entitic vol] 10.0 fL 6.2-12.0 [facility] Determination of erythrocyte mean corpuscular volume (MCV)Ordered By: Dr. Hooks on 06-19-2022 MCV (RBC) [Entitic vol] 97.2 fL 80-94 [facility] Hematocrit Auto (Bld) [Volum e fraction]Ordered By: Dr. Hooks on 06-19-2022 Hematocrit (Bld) [Volume fraction] 45.2 % 40-54 [facility] Laboratory - Chemistry and C hemistry - challengeOrdered By: Dr. Hooks on 06-19-2022 ALP [Catalytic activity/Vol] 69 U/L 45-117 [facility] ALT [Catalytic activity/Vol] 23 U/L 16-61 [facility] Comment on above: Slight Lipemia, Resu lt may be falsely increased. CO2 [Moles/Vol] 30.0 mmol/L 21.0-32.0 [facility] Comment on above: Slight Lipemia, Resu lt may be falsely increased. Globulin (S) [Mass/Vol] 3.2 g/dL 2.2-4.2 [facility] Urea nitrogen/Creatinine [Mass ratio] 17.6 mg/mg 10-20 [facility] Laboratory - Hematology and Cell countsOrdered By: Dr. Hooks on 06-19-2022 Erythrocyte distribution width (RBC) [Entitic vol] 43.4 fL 35.1-43.9 [facility] Erythrocyte distribution width (RBC) [Ratio] 12.1 % 11.6-14.6 [facility] Immature granulocytes/100 WBC (Bld) 0.100 % 0.0-0.9 [facility] Comment on above: IG% - Immature Granu locytes (promyelocytes, myelocytes and metamyelocytes) > 1% indicates that a LEFT SHIFT is Present. MCH (RBC) [Entitic mass] 32.7 pg 27.0-32.0 [facility] Nucleated RBC/100 WBC (Bld) [Ratio] 0 % 0-5 [facility] MCHC Auto (RBC) [Mass/Vol]Or dered By: Dr. Hooks on 06-19-2022 MCHC (RBC) [Mass/Vol] 33.6 g/dL 32-36 [facility] No Panel InformationOrdered By: Dr. Hooks on 06-19-2022 Estimated GFR (MDRD) Amer 72 mL/min >60 [facility] Comment on above: GFR Calc Estimated GFR (MDRD) Non-Af Amer 59 mL/min >60 [facility] Comment on above: Non- GFR Calc Thyroid Stimulating Hormone (TSH) 3.95 uIU/mL 0.358-3.74 [facility] Vitamin D 25-Hydroxy 68.6 ng/mL [facility] Comment on above: Vitamin D 25(OH) Sta tus Range Deficiency <20 ng/mL (50nmol/L) Insufficiency 20 - 30 ng/mL (50 - 75 nmol/L) Sufficiency 30 - 100 ng/mL (75 - 250 nmol/L) Toxicity >100 ng/mL (>250 nmol/L) Platelets bldOrdered By: Dr. Hooks on 06-19-2022 Platelets (Bld) [#/Vol] 311 10*3/uL 150-450 [facility] Serum or plasma albumin ambar urement (mass/volume)Ordered By: Dr. Hooks on 06-19-2022 Albumin [Mass/Vol] 3.4 g/dL 3.2-5.0 [facility] Serum or plasma albumin/glob ulin mass ratioOrdered By: Dr. Hooks on 06-19-2022 Albumin/Globulin [Mass ratio] 1.1 {ratio} 0.9-2.4 [facility] Serum or plasma calcium ambar urement (mass/volume)Ordered By: Dr. Hooks on 06-19-2022 Calcium [Mass/Vol] 8.8 mg/dL 8.5-10.1 [facility] Comment on above: Slight Lipemia, Resu lt may be falsely increased. Serum or plasma creatinine m easurement (mass/volume)Ordered By: Dr. Hooks on 06-19-2022 Creatinine [Mass/Vol] 1.25 mg/dL 0.70-1.30 [facility] Comment on above: Slight Lipemia, Resu lt may be falsely increased.The validity of the calculated GFR & GFRAA in patients over 70 years has not been determined. Clinical correlation is essential. Serum or plasma urea nitroge n measurement (mass/volume)Ordered By: Dr. Hooks on 06-19-2022 Urea nitrogen [Mass/Vol] 22 mg/dL 7-18 [facility] Comment on above: Slight Lipemia, Resu lt may be falsely increased. Thin prep Papanicolaou smear with manual screeningOrdered By: Dr. Hooks on 06-19-2022 Thin prep Papanicolaou smear with manual screening 16 U/L 15-37 [facility] Comment on above: Slight Lipemia, Resu lt may be falsely increased. Thin prep Papanicolaou smear with manual screening 3 5-15 [facility] Basophil percentageOrdered B y: Rina Olivier on 04-04-2022 Chloride [Moles/Vol] 109 mmol/L 98-107 [facility] Glucose [Mass/Vol] 96 mg/dL 74-106 [facility] Potassium [Moles/Vol] 3.8 mmol/L 3.5-5.1 [facility] Sodium [Moles/Vol] 143 mmol/L 136-145 [facility] Laboratory - Chemistry and C hemistry - challengeOrdered By: Rina Olivier on 04-04-2022 CO2 [Moles/Vol] 27.0 mmol/L 21.0-32.0 [facility] Urea nitrogen/Creatinine [Mass ratio] 18.2 mg/mg 10- [facility] No Panel InformationOrdered By: Rina Olivier on 04-04-2022 Estimated GFR (MDRD) Amer 61 mL/min >60 [facility] Comment on above: GFR Calc Estimated GFR (MDRD) Non-Af Amer 51 mL/min >60 [facility] Comment on above: Non- GFR Calc Serum or plasma calcium ambar urement (mass/volume)Ordered By: Rina Olivier on 04-04-2022 Calcium [Mass/Vol] 9.1 mg/dL 8.5-10.1 [facility] Serum or plasma creatinine m easurement (mass/volume)Ordered By: Rina Olviier on 04-04-2022 Creatinine [Mass/Vol] 1.43 mg/dL 0.70-1.30 [facility] Comment on above: The validity of the calculated GFR & GFRAA in patients over 70 years has not been determined. Clinical correlation is essential. Serum or plasma urea nitroge n measurement (mass/volume)Ordered By: Rina Olivier on 04-04-2022 Urea nitrogen [Mass/Vol] 26 mg/dL -18 [facility] Thin prep Papanicolaou smear with manual screeningOrdered By: Rina Olivier on 04-04-2022 Thin prep Papanicolaou smear with manual screening 7 5-15 [facility] Basophil percentageOrdered B y: Rina Olivier on 03-18-2022 Chloride [Moles/Vol] 110 mmol/L 98-107 [facility] Glucose [Mass/Vol] 100 mg/dL 74-106 [facility] Comment on above: Fasting Glucose resu lt from 100 to 125 mg/dL suggests IMPAIRED HOMEOSTASIS per A.D.A. criteria. Potassium [Moles/Vol] 4.2 mmol/L 3.5-5.1 [facility] Sodium [Moles/Vol] 143 mmol/L 136-145 [facility] Laboratory - Chemistry and C hemistry - challengeOrdered By: Rina Olivier on 03-18-2022 CO2 [Moles/Vol] 29.0 mmol/L 21.0-32.0 [facility] Natriuretic peptide B (Bld) [Mass/Vol] 224.4 pg/mL 0-100 [facility] Urea nitrogen/Creatinine [Mass ratio] 21.1 mg/mg 10-20 [facility] No Panel InformationOrdered By: Rina Olivier on 03-18-2022 Estimated GFR (MDRD) Amer 73 mL/min >60 [facility] Comment on above: GFR Calc Estimated GFR (MDRD) Non-Af Amer 60 mL/min >60 [facility] Comment on above: Non- GFR Calc Serum or plasma calcium ambar urement (mass/volume)Ordered By: Rina Olivier on 03-18-2022 Calcium [Mass/Vol] 9.0 mg/dL 8.5-10.1 [facility] Serum or plasma creatinine m easurement (mass/volume)Ordered By: Rina Olivier on 03-18-2022 Creatinine [Mass/Vol] 1.23 mg/dL 0.70-1.30 [facility] Comment on above: The validity of the calculated GFR & GFRAA in patients over 70 years has not been determined. Clinical correlation is essential. Serum or plasma urea nitroge n measurement (mass/volume)Ordered By: Rina Olivier on 03-18-2022 Urea nitrogen [Mass/Vol] 26 mg/dL 12-16 [facility] Thin prep Papanicolaou smear with manual screeningOrdered By: Rina Olivier on 03-18-2022 Thin prep Papanicolaou smear with manual screening 4 - [facility] Absolute lymphocyte counton 12-19-2021 Lymphocytes Auto (Unsp spec) [#/Vol] 1.37 10*3/uL 0.83-4.51 [facility] Work Phone: Basophil percentageon 2021 Basophils/100 WBC (Bld) 0.8 % 0-1 [facility] Work Phone: Bilirubin [Mass/Vol] 1.00 mg/dL 0.20-1.00 [facility] Work Phone: Comment on above: For patients on eltr ombopag therapy, use of Dimension [place] TBIL is not recommended. Chloride [Moles/Vol] 112 mmol/L 98-107 [facility] Work Phone: Eosinophils/100 WBC (Bld) 2.2 % 0-5 [facility] Work Phone: Glucose [Mass/Vol] 96 mg/dL 74-106 [facility] Work Phone: Neutrophils (Bld) [#/Vol] 4.1 10*3/uL 2.0-7.7 [facility] Work Phone: Neutrophils/100 WBC (Bld) 63.2 % 47-70 [facility] Work Phone: Potassium [Moles/Vol] 4.3 mmol/L 3.5-5.1 [facility] Work Phone: Protein [Mass/Vol] 6.6 g/dL 6.4-8.2 [facility] Work Phone: Sodium [Moles/Vol] 143 mmol/L 136-145 [facility] Work Phone: WBC (Bld) [#/Vol] 6.5 10*3/uL 4.4-11.0 [facility] Work Phone: Blood erythrocytes count (nu mber/volume)on 12-19-2021 RBC (Bld) [#/Vol] 4.28 10*6/uL 4.6-6.2 [facility] Work Phone: Blood hemoglobin measurement (mass/volume)on 12-19-2021 Hemoglobin (Bld) [Mass/Vol] 13.5 g/dL 13.0-16.5 [facility] Work Phone: Blood lymphocytes/100 leukoc yteson 12-19-2021 Lymphocytes/100 WBC (Bld) 21.2 % 19-41 [facility] Work Phone: Blood monocytes/100 leukocyt eson 12-19-2021 Monocytes/100 WBC (Bld) 12.1 % 0-10 [facility] Work Phone: Blood platelet mean volumeon 12-19-2021 Platelet mean volume (Bld) [Entitic vol] 9.6 fL 6.2-12.0 [facility] Work Phone: Determination of erythrocyte mean corpuscular volume (MCV)on 12-19-2021 MCV (RBC) [Entitic vol] 96.5 fL 80-94 [facility] Work Phone: Hematocrit Auto (Bld) [Volum e fraction]on 12-19-2021 Hematocrit (Bld) [Volume fraction] 41.3 % 40-54 [facility] Work Phone: Laboratory - Chemistry and C hemistry - challengeon 12-19-2021 ALP [Catalytic activity/Vol] 56 U/L 45-117 [facility] Work Phone: ALT [Catalytic activity/Vol] 17 U/L 16-61 [facility] Work Phone: CO2 [Moles/Vol] 25.0 mmol/L 21.0-32.0 [facility] Work Phone: Globulin (S) [Mass/Vol] 3.5 g/dL 2.2-4.2 [facility] Work Phone: Urea nitrogen/Creatinine [Mass ratio] 15.6 mg/mg 10-20 [facility] Work Phone: Laboratory - Hematology and Cell countson 12-19-2021 Erythrocyte distribution width (RBC) [Entitic vol] 45.8 fL 35.1-43.9 [facility] Work Phone: Erythrocyte distribution width (RBC) [Ratio] 13.1 % 11.6-14.6 [facility] Work Phone: Immature granulocytes/100 WBC (Bld) 0.500 % 0.0-0.9 [facility] Work Phone: Comment on above: IG% - Immature Granu locytes (promyelocytes, myelocytes and metamyelocytes) > 1% indicates that a LEFT SHIFT is Present. MCH (RBC) [Entitic mass] 31.5 pg 27.0-32.0 [facility] Work Phone: Nucleated RBC/100 WBC (Bld) [Ratio] 0 % 0-5 [facility] Work Phone: MCHC Auto (RBC) [Mass/Vol]on 12-19-2021 MCHC (RBC) [Mass/Vol] 32.7 g/dL 32-36 [facility] Work [facility]: No Panel Informationon 12-19 Estimated GFR (MDRD) Amer 70 mL/min >60 [facility] Work Phone: Comment on above: GFR Calc Estimated GFR (MDRD) Non-Af Amer 58 mL/min >60 [facility] Work Phone: Comment on above: Non- GFR Calc Thyroid Stimulating Hormone (TSH) 1.72 uIU/mL 0.358-3.74 [facility] Work Phone: Vitamin D 25-Hydroxy 40.9 ng/mL [facility] Work Phone: Comment on above: Vitamin D 25(OH) Sta tus Range Deficiency <20 ng/mL (50nmol/L) Insufficiency 20 - 30 ng/mL (50 - 75 nmol/L) Sufficiency 30 - 100 ng/mL (75 - 250 nmol/L) Toxicity >100 ng/mL (>250 nmol/L) Platelets bldon 12-19-2021 Platelets (Bld) [#/Vol] 334 10*3/uL 150-450 [facility] Work Phone: Serum or plasma albumin ambar urement (mass/volume)on 12-19-2021 Albumin [Mass/Vol] 3.1 g/dL 3.2-5.0 [facility] Work Phone: Serum or plasma albumin/glob ulin mass ratioon 12-19-2021 Albumin/Globulin [Mass ratio] 0.9 {ratio} 0.9-2.4 [facility] Work Phone: Serum or plasma calcium ambar urement (mass/volume)on 12-19-2021 Calcium [Mass/Vol] 8.9 mg/dL 8.5-10.1 [facility] Work Phone: Serum or plasma creatinine m easurement (mass/volume)on 12-19-2021 Creatinine [Mass/Vol] 1.28 mg/dL 0.70-1.30 [facility] Work Phone: Comment on above: The validity of the calculated GFR & GFRAA in patients over 70 years has not been determined. Clinical correlation is essential. Serum or plasma urea nitroge n measurement (mass/volume)on 12-19-2021 Urea nitrogen [Mass/Vol] 20 mg/dL 7-18 [facility] Work Phone: Thin prep Papanicolaou smear with manual screeningon 12-19-2021 Thin prep Papanicolaou smear with manual screening 20 U/L 15-37 [facility] Work Phone: Thin prep Papanicolaou smear with manual screening 6 5-15 [facility] Work Phone: Basophil percentageon 2021 Basophil percentage 2.4 mg/dL 2.5-4.9 [facility] Work Phone: Chloride [Moles/Vol] 112 mmol/L 98-107 [facility] Work Phone: Glucose [Mass/Vol] 87 mg/dL 74-106 [facility] Work Phone: Potassium [Moles/Vol] 3.7 mmol/L 3.5-5.1 [facility] Work Phone: Sodium [Moles/Vol] 141 mmol/L 136-145 [facility] Work Phone: Laboratory - Chemistry and C hemistry - challengeon 12-05-2021 CO2 [Moles/Vol] 22.0 mmol/L 21.0-32.0 [facility] Work Phone: Urea nitrogen/Creatinine [Mass ratio] 16.5 mg/mg 10-20 [facility] Work Phone: No Panel Informationon 12-05 Estimated GFR (MDRD) Amer 84 mL/min >60 [facility] Work Phone: Comment on above: GFR Calc Estimated GFR (MDRD) Non-Af Amer 69 mL/min >60 [facility] Work Phone: Comment on above: Non- GFR Calc Serum or plasma albumin ambar urement (mass/volume)on 12-05-2021 Albumin [Mass/Vol] 2.9 g/dL 3.2-5.0 [facility] Work Phone: Serum or plasma calcium ambar urement (mass/volume)on 12-05-2021 Calcium [Mass/Vol] 8.5 mg/dL 8.5-10.1 [facility] Work Phone: Serum or plasma creatinine m easurement (mass/volume)on 12-05-2021 Creatinine [Mass/Vol] 1.09 mg/dL 0.70-1.30 [facility] Work Phone: Comment on above: The validity of the calculated GFR & GFRAA in patients over 70 years has not been determined. Clinical correlation is essential. Serum or plasma urea nitroge n measurement (mass/volume)on 12-05-2021 Urea nitrogen [Mass/Vol] 18 mg/dL 7-18 [facility] Work Phone: Basophil percentageon 2021 Basophil percentage < 0.2 AI 0.0-0.9 [facility] Work Phone: Dilute Steve's viper venom timeon 10-15-2021 dRVVT Coag (PPP) [Time] 59.3 s 0.0-47.0 [facility] Work Phone: No Panel Informationon 10-15 Centromere B Antibody <0.2 AI 0.0-0.9 [facility] Work Phone: Miscellaneous Test See comment [facility] Work Phone: Comment on above: TEST RESULT UNITS RE F INTERVALRheumatoid Arthritis ProfileRheumatoid Factor (RF) 11.2 IU/mL <14.0Anti-CCP Ab, IgG/IgA 8 units 0-19 Negative <20 Weak positive 20 - 39 Moderate positive 40 - 59 Strong positive >59 TESTING PERFORMED AT [facility]. ORIGINAL REPORT ON FILE IN LAB CONTAINS ADDITIONAL TEST SITE INFORMATION. [employer]PER[employer] Antibody 0.2 AI 0.0-0.9 [facility] Work Phone: Serum DNA double strand anti body assay (units/volume)on 10-15-2021 DNA double strand Ab Qn (S) 5 [IU]/mL 0-9 [facility] Work Phone: Comment on above: Negative <5 Equivoca l 5 - 9 Positive >9 Serum Rosa-1 antibody assay (u nits/volume)on 10-15-2021 Rosa-1 extractable nuclear Ab Qn (S) <0.2 AI 0.0-0.9 [facility] Work Phone: Serum Scl-70 extractable nuc lear antibody assay (units/volume)on 10-15-2021 SCL-70 extractable nuclear Ab Qn (S) 0.2 AI 0.0-0.9 [facility] Work Phone: Serum Cam extractable nucl ear antibody detectionon 10-15-2021 Cam extractable nuclear Ab Ql (S) <0.2 AI 0.0-0.9 [facility] Work Phone: Thin prep Papanicolaou smear with manual screeningon 10-15-2021 Thin prep Papanicolaou smear with manual screening 50.5 sec 0.0-47.6 [facility] Work Phone: Thin prep Papanicolaou smear with manual screening 1.10 Ratio 0.00-1.34 [facility] Work Phone: Thin prep Papanicolaou smear with manual screening 38.2 sec 0.0-51.9 [facility] Work Phone: Thin prep Papanicolaou smear with manual screening Comment: . [facility] Work Phone: Comment on above: No lupus anticoagula nt was detected. PTT-LA and dRVVT results areconsistent with specific inhibitors to one or more common pathway factors(X, V, II or fibrinogen). The dPT was extended but the dPT confirmatoryratio was normal. As antibody titers may fluctuate with time, repeattesting may be indicated and ideally should be performed in the absence ofanticoagulant therapy.Performed at: [facility], [place] [id number] Director: Kunal Cruz MD, Phone: [phone] Thrombin time in platelet po or plasmaon 10-15-2021 Thrombin time Coag (PPP) [Time] 18.6 sec 0.0-23.0 [facility] Work Phone: Basophil percentageon 2021 Basophil percentage 3.2 mg/dL 2.5-4.9 [facility] Work Phone: Chloride [Moles/Vol] 108 mmol/L 98-107 [facility] Work Phone: Glucose [Mass/Vol] 107 mg/dL 74-106 [facility] Work Phone: Comment on above: Fasting Glucose resu lt from 100 to 125 mg/dL suggests IMPAIRED HOMEOSTASIS per A.D.A. criteria. Potassium [Moles/Vol] 4.1 mmol/L 3.5-5.1 [facility] Work Phone: Sodium [Moles/Vol] 142 mmol/L 136-145 [facility] Work Phone: WBC (Bld) [#/Vol] 6.8 10*3/uL 4.4-11.0 [facility] Work Phone: Blood erythrocytes count (nu mber/volume)on 10-10-2021 RBC (Bld) [#/Vol] 4.55 10*6/uL 4.6-6.2 [facility] Work Phone: Blood hemoglobin measurement (mass/volume)on 10-10-2021 Hemoglobin (Bld) [Mass/Vol] 13.9 g/dL 13.0-16.5 [facility] Work Phone: Blood platelet mean volumeon 10-10-2021 Platelet mean volume (Bld) [Entitic vol] 9.3 fL 6.2-12.0 [facility] Work Phone: Determination of erythrocyte mean corpuscular volume (MCV)on 10-10-2021 MCV (RBC) [Entitic vol] 91.2 fL 80-94 [facility] Work Phone: Hematocrit Auto (Bld) [Volum e fraction]on 10-10-2021 Hematocrit (Bld) [Volume fraction] 41.5 % 40-54 [facility] Work Phone: Laboratory - Chemistry and C hemistry - challengeon 10-10-2021 CO2 [Moles/Vol] 28.0 mmol/L 21.0-32.0 [facility] Work Phone: Urea nitrogen/Creatinine [Mass ratio] 20.3 mg/mg 10-20 [facility] Work Phone: Laboratory - Hematology and Cell countson 10-10-2021 Erythrocyte distribution width (RBC) [Entitic vol] 48.0 fL 35.1-43.9 [facility] Work Phone: Erythrocyte distribution width (RBC) [Ratio] 14.2 % 11.6-14.6 [facility] Work Phone: MCH (RBC) [Entitic mass] 30.5 pg 27.0-32.0 [facility] Work Phone: MCHC Auto (RBC) [Mass/Vol]on 10-10-2021 MCHC (RBC) [Mass/Vol] 33.5 g/dL 32-36 [facility] Work Phone: No Panel Informationon 10-10 Estimated GFR (MDRD) Amer 59 mL/min >60 [facility] Work Phone: Comment on above: GFR Calc Estimated GFR (MDRD) Non-Af Amer 49 mL/min >60 [facility] Work Phone: Comment on above: Non- GFR Calc Platelets bldon 10-10-2021 Platelets (Bld) [#/Vol] 364 10*3/uL 150-450 [facility] Work Phone: Serum or plasma albumin ambar urement (mass/volume)on 10-10-2021 Albumin [Mass/Vol] 2.7 g/dL 3.2-5.0 [facility] Work Phone: Serum or plasma calcium ambar urement (mass/volume)on 10-10-2021 Calcium [Mass/Vol] 9.5 mg/dL 8.5-10.1 [facility] Work Phone: Serum or plasma creatinine m easurement (mass/volume)on 10-10-2021 Creatinine [Mass/Vol] 1.48 mg/dL 0.70-1.30 [facility] Work Phone: Comment on above: The validity of the calculated GFR & GFRAA in patients over 70 years has not been determined. Clinical correlation is essential. Serum or plasma urea nitroge n measurement (mass/volume)on 10-10-2021 Urea nitrogen [Mass/Vol] 30 mg/dL 7-18 [facility] Work Phone: Absolute lymphocyte counton 09-18-2021 Lymphocytes Auto (Unsp spec) [#/Vol] 0.61 10*3/uL 0.83-4.51 [facility] Work Phone: Basophil percentageon 2021 Basophils/100 WBC (Bld) 0.3 % 0-1 [facility] Work Phone: Bilirubin [Mass/Vol] 1.40 mg/dL 0.20-1.00 [facility] Work Phone: Comment on above: For patients on eltr ombopag therapy, use of Dimension [place] TBIL is not recommended. Chloride [Moles/Vol] 107 mmol/L 98-107 [facility] Work Phone: Eosinophils/100 WBC (Bld) 0.2 % 0-5 [facility] Work Phone: Glucose [Mass/Vol] 131 mg/dL 74-106 [facility] Work Phone: Comment on above: Fasting Glucose resu lt greater than or equal to 126 mg/dL suggests DIABETES MELLITUS per A.D.A. criteria. Neutrophils (Bld) [#/Vol] 10.2 10*3/uL 2.0-7.7 [facility] Work Phone: Neutrophils/100 WBC (Bld) 87.8 % 47-70 [facility] Work Phone: Potassium [Moles/Vol] 4.3 mmol/L 3.5-5.1 [facility] Work Phone: Protein [Mass/Vol] 6.4 g/dL 6.4-8.2 [facility] Work Phone: Sodium [Moles/Vol] 140 mmol/L 136-145 [facility] Work Phone: WBC (Bld) [#/Vol] 11.6 10*3/uL 4.4-11.0 [facility] Work Phone: Blood erythrocytes count (nu mber/volume)on 09-18-2021 RBC (Bld) [#/Vol] 4.90 10*6/uL 4.6-6.2 [facility] Work Phone: Blood hemoglobin measurement (mass/volume)on 09-18-2021 Hemoglobin (Bld) [Mass/Vol] 15.0 g/dL 13.0-16.5 [facility] Work Phone: Blood lymphocytes/100 leukoc yteson 09-18-2021 Lymphocytes/100 WBC (Bld) 5.3 % 19-41 [facility] Work Phone: Blood monocytes/100 leukocyt eson 09-18-2021 Monocytes/100 WBC (Bld) 4.8 % 0-10 [facility] Work Phone: Blood platelet mean volumeon 09-18-2021 Platelet mean volume (Bld) [Entitic vol] 9.8 fL 6.2-12.0 [facility] Work Phone: Culture, urineon 09-18-2021 Bacteria identified Cx Nom (U) Pseudomonas aeroginosa [facility] Work Phone: Determination of erythrocyte mean corpuscular volume (MCV)on 09-18-2021 MCV (RBC) [Entitic vol] 91.8 fL 80-94 [facility] Work Phone: Hematocrit Auto (Bld) [Volum e fraction]on 09-18-2021 Hematocrit (Bld) [Volume fraction] 45.0 % 40-54 [facility] Work Phone: Laboratory - Chemistry and C hemistry - challengeon 09-18-2021 ALP [Catalytic activity/Vol] 70 U/L 45-117 [facility] Work Phone: ALT [Catalytic activity/Vol] 28 U/L 16-61 [facility] Work Phone: CO2 [Moles/Vol] 24.0 mmol/L 21.0-32.0 [facility] Work Phone: Globulin (S) [Mass/Vol] 3.4 g/dL 2.2-4.2 [facility] Work Phone: Urea nitrogen/Creatinine [Mass ratio] 26.1 mg/mg 10-20 [facility] Work Phone: Laboratory - Hematology and Cell countson 09-18-2021 Erythrocyte distribution width (RBC) [Entitic vol] 48.2 fL 35.1-43.9 [facility] Work Phone: Erythrocyte distribution width (RBC) [Ratio] 14.3 % 11.6-14.6 [facility] Work Phone: Immature granulocytes/100 WBC (Bld) 1.600 % 0.0-0.9 [facility] Work Phone: Comment on above: IG% - Immature Granu locytes (promyelocytes, myelocytes and metamyelocytes) > 1% indicates that a LEFT SHIFT is Present. MCH (RBC) [Entitic mass] 30.6 pg 27.0-32.0 [facility] Work Phone: Nucleated RBC/100 WBC (Bld) [Ratio] 0 % 0-5 [facility] Work Phone: MCHC Auto (RBC) [Mass/Vol]on 09-18-2021 MCHC (RBC) [Mass/Vol] 33.3 g/dL 32-36 [facility] Work Phone: No Panel Informationon 09-18 Estimated GFR (MDRD) Amer 54 mL/min >60 [facility] Work Phone: Comment on above: GFR Calc Estimated GFR (MDRD) Non-Af Amer 44 mL/min >60 [facility] Work Phone: Comment on above: Non- GFR Calc Thyroid Stimulating Hormone (TSH) 0.41 uIU/mL 0.358-3.74 [facility] Work Phone: Vitamin D 25-Hydroxy 38.1 ng/mL [facility] Work Phone: Comment on above: Vitamin D 25(OH) Sta tus Range Deficiency <20 ng/mL (50nmol/L) Insufficiency 20 - 30 ng/mL (50 - 75 nmol/L) Sufficiency 30 - 100 ng/mL (75 - 250 nmol/L) Toxicity >100 ng/mL (>250 nmol/L) Platelets bldon 09-18-2021 Platelets (Bld) [#/Vol] 236 10*3/uL 150-450 [facility] Work Phone: Serum or plasma albumin ambar urement (mass/volume)on 09-18-2021 Albumin [Mass/Vol] 3.0 g/dL 3.2-5.0 [facility] Work Phone: Serum or plasma albumin/glob ulin mass ratioon 09-18-2021 Albumin/Globulin [Mass ratio] 0.9 {ratio} 0.9-2.4 [facility] Work Phone: Serum or plasma calcium ambar urement (mass/volume)on 09-18-2021 Calcium [Mass/Vol] 8.4 mg/dL 8.5-10.1 [facility] Work Phone: Serum or plasma creatinine m easurement (mass/volume)on 09-18-2021 Creatinine [Mass/Vol] 1.61 mg/dL 0.70-1.30 [facility] Work Phone: Comment on above: The validity of the calculated GFR & GFRAA in patients over 70 years has not been determined. Clinical correlation is essential. Serum or plasma urea nitroge n measurement (mass/volume)on 09-18-2021 Urea nitrogen [Mass/Vol] 42 mg/dL 7-18 [facility] Work Phone: Thin prep Papanicolaou smear with manual screeningon 09-18-2021 Thin prep Papanicolaou smear with manual screening 11 U/L 15-37 [facility] Work Phone: Thin prep Papanicolaou smear with manual screening 9 5-15 [facility] Work Phone: Culture, urineon 08-26-2021 Bacteria identified Cx Nom (U) Pseudomonas aeroginosa [facility] Work Phone: Absolute lymphocyte counton 08-07-2021 Lymphocytes Auto (Unsp spec) [#/Vol] 1.39 10*3/uL 0.83-4.51 [facility] Work Phone: Basophil percentageon 2021 Basophils/100 WBC (Bld) 0.5 % 0-1 [facility] Work Phone: Chloride [Moles/Vol] 111 mmol/L 98-107 [facility] Work Phone: Eosinophils/100 WBC (Bld) 3.8 % 0-5 [facility] Work Phone: Glucose [Mass/Vol] 82 mg/dL 74-106 [facility] Work Phone: Neutrophils (Bld) [#/Vol] 4.1 10*3/uL 2.0-7.7 [facility] Work Phone: Neutrophils/100 WBC (Bld) 63.2 % 47-70 [facility] Work Phone: Potassium [Moles/Vol] 4.9 mmol/L 3.5-5.1 [facility] Work Phone: Sodium [Moles/Vol] 143 mmol/L 136-145 [facility] Work Phone: WBC (Bld) [#/Vol] 6.5 10*3/uL 4.4-11.0 [facility] Work Phone: Blood erythrocytes count (nu mber/volume)on 08-07-2021 RBC (Bld) [#/Vol] 4.65 10*6/uL 4.6-6.2 [facility]: Blood hemoglobin measurement (mass/volume)on 08-07-2021 Hemoglobin (Bld) [Mass/Vol] 14.3 g/dL 13.0-16.5 [facility] Work Phone: Blood lymphocytes/100 leukoc yteson 08-07-2021 Lymphocytes/100 WBC (Bld) 21.3 % 19-41 [facility] Work Phone: Blood monocytes/100 leukocyt eson 08-07-2021 Monocytes/100 WBC (Bld) 10.6 % 0-10 [facility] Work Phone: Blood platelet mean volumeon 08-07-2021 Platelet mean volume (Bld) [Entitic vol] 10.0 fL 6.2-12.0 [facility] Work Phone: Determination of erythrocyte mean corpuscular volume (MCV)on 08-07-2021 MCV (RBC) [Entitic vol] 92.3 fL 80-94 [facility] Work Phone: Erythrocyte sedimentation ra sb 08-07-2021 ESR (Bld) [Velocity] 21 mm/h 0-20 [facility] Work Phone: Hematocrit Auto (Bld) [Volum e fraction]on 08-07-2021 Hematocrit (Bld) [Volume fraction] 42.9 % 40-54 [facility] Work Phone: Laboratory - Chemistry and C hemistry - challengeon 08-07-2021 CO2 [Moles/Vol] 29.0 mmol/L 21.0-32.0 [facility] Work Phone: Urea nitrogen/Creatinine [Mass ratio] 20.0 mg/mg 10-20 [facility] Work Phone: Laboratory - Hematology and Cell countson 08-07-2021 Erythrocyte distribution width (RBC) [Entitic vol] 44.2 fL 35.1-43.9 [facility] Work Phone: Erythrocyte distribution width (RBC) [Ratio] 13.2 % 11.6-14.6 [facility] Work Phone: Immature granulocytes/100 WBC (Bld) 0.600 % 0.0-0.9 [facility] Work Phone: Comment on above: IG% - Immature Granu locytes (promyelocytes, myelocytes and metamyelocytes) > 1% indicates that a LEFT SHIFT is Present. MCH (RBC) [Entitic mass] 30.8 pg 27.0-32.0 [facility] Work Phone: Nucleated RBC/100 WBC (Bld) [Ratio] 0 % 0-5 [facility] Work Phone: MCHC Auto (RBC) [Mass/Vol]on 08-07-2021 MCHC (RBC) [Mass/Vol] 33.3 g/dL 32-36 [facility] Work Phone: No Panel Informationon 08-07 Estimated GFR (MDRD) Amer 56 mL/min >60 [facility] Work Phone: Comment on above: GFR Calc Estimated GFR (MDRD) Non-Af Amer 46 mL/min >60 [facility] Work Phone: Comment on above: Non- GFR Calc Platelets bldon 08-07-2021 Platelets (Bld) [#/Vol] 288 10*3/uL 150-450 [facility] Work Phone: Serum or plasma C reactive p rotein measurement (mass/volume)on 08-07-2021 CRP [Mass/Vol] mg/L 0.0-3.0 [facility] Work Phone: Comment on above: C-Reactive Protein ( CRP) provides useful information for thediagnosis, therapy and monitoring of inflammatory processesand associated diseases. For the evaluation of Relative Riskfor Cardiovascular Disease, a High Sensitivity CRP (HSCRP)should be ordered. Serum or plasma calcium ambar urement (mass/volume)on 08-07-2021 Calcium [Mass/Vol] 9.6 mg/dL 8.5-10.1 [facility] Work Phone: Serum or plasma creatinine m easurement (mass/volume)on 08-07-2021 Creatinine [Mass/Vol] 1.55 mg/dL 0.70-1.30 [facility] Work Phone: Comment on above: The validity of the calculated GFR & GFRAA in patients over 70 years has not been determined. Clinical correlation is essential. Serum or plasma urea nitroge n measurement (mass/volume)on 08-07-2021 Urea nitrogen [Mass/Vol] 31 mg/dL 7-18 [facility] Work Phone: Thin prep Papanicolaou smear with manual screeningon 08-07-2021 Thin prep Papanicolaou smear with manual screening 3 5-15 [facility] Work Phone: Absolute lymphocyte counton 06-20-2021 Lymphocytes Auto (Unsp spec) [#/Vol] 1.18 10*3/uL 0.83-4.51 [facility] Work Phone: Basophil percentageon 2021 Basophils/100 WBC (Bld) 0.6 % 0-1 [facility] Work Phone: Bilirubin [Mass/Vol] 0.80 mg/dL 0.20-1.00 [facility] Work Phone: Comment on above: For patients on eltr ombopag therapy, use of Dimension [place] TBIL is not recommended. Chloride [Moles/Vol] 108 mmol/L 98-107 [facility] Work Phone: Eosinophils/100 WBC (Bld) 3.2 % 0-5 [facility] Work Phone: Glucose [Mass/Vol] 108 mg/dL 74-106 [facility] Work Phone: Comment on above: Fasting Glucose resu lt from 100 to 125 mg/dL suggests IMPAIRED HOMEOSTASIS per A.D.A. criteria. Neutrophils (Bld) [#/Vol] 4.2 10*3/uL 2.0-7.7 [facility] Work Phone: Neutrophils/100 WBC (Bld) 67.7 % 47-70 [facility] Work Phone: Potassium [Moles/Vol] 4.5 mmol/L 3.5-5.1 [facility] Work Phone: Protein [Mass/Vol] 6.5 g/dL 6.4-8.2 [facility] Work Phone: Sodium [Moles/Vol] 141 mmol/L 136-145 [facility] Work Phone: WBC (Bld) [#/Vol] 6.2 10*3/uL 4.4-11.0 [facility] Work Phone: Blood erythrocytes count (nu mber/volume)on 06-20-2021 RBC (Bld) [#/Vol] 4.36 10*6/uL 4.6-6.2 [facility] Work Phone: Blood hemoglobin measurement (mass/volume)on 06-20-2021 Hemoglobin (Bld) [Mass/Vol] 13.2 g/dL 13.0-16.5 [facility] Work Phone: Blood lymphocytes/100 leukoc yteson 06-20-2021 Lymphocytes/100 WBC (Bld) 19.1 % 19-41 [facility] Work Phone: Blood monocytes/100 leukocyt eson 06-20-2021 Monocytes/100 WBC (Bld) 9.1 % 0-10 [facility] Work Phone: Blood platelet mean volumeon 06-20-2021 Platelet mean volume (Bld) [Entitic vol] 10.2 fL 6.2-12.0 [facility] Work Phone: Determination of erythrocyte mean corpuscular volume (MCV)on 06-20-2021 MCV (RBC) [Entitic vol] 92.0 fL 80-94 [facility] Work Phone: Hematocrit Auto (Bld) [Volum e fraction]on 06-20-2021 Hematocrit (Bld) [Volume fraction] 40.1 % 40-54 [facility] Work Phone: Laboratory - Chemistry and C hemistry - challengeon 06-20-2021 ALP [Catalytic activity/Vol] 57 U/L 45-117 [facility] Work Phone: ALT [Catalytic activity/Vol] 32 U/L 16-61 [facility] Work Phone: CO2 [Moles/Vol] 28.0 mmol/L 21.0-32.0 [facility] Work Phone: Globulin (S) [Mass/Vol] 3.2 g/dL 2.2-4.2 [facility] Work Phone: Urea nitrogen/Creatinine [Mass ratio] 16.4 mg/mg 10-20 [facility] Work Phone: Laboratory - Hematology and Cell countson 06-20-2021 Erythrocyte distribution width (RBC) [Entitic vol] 44.2 fL 35.1-43.9 [facility] Work Phone: Erythrocyte distribution width (RBC) [Ratio] 13.2 % 11.6-14.6 [facility] Work Phone: Immature granulocytes/100 WBC (Bld) 0.300 % 0.0-0.9 [facility] Work Phone: Comment on above: IG% - Immature Granu locytes (promyelocytes, myelocytes and metamyelocytes) > 1% indicates that a LEFT SHIFT is Present. MCH (RBC) [Entitic mass] 30.3 pg 27.0-32.0 [facility] Work Phone: Nucleated RBC/100 WBC (Bld) [Ratio] 0 % 0-5 [facility] Work Phone: MCHC Auto (RBC) [Mass/Vol]on 06-20-2021 MCHC (RBC) [Mass/Vol] 32.9 g/dL 32-36 [facility] Work Phone: No Panel Informationon 06-20 Estimated GFR (MDRD) Amer 66 mL/min >60 [facility] Work Phone: Comment on above: GFR Calc Estimated GFR (MDRD) Non-Af Amer 55 mL/min >60 [facility] Work Phone: Comment on above: Non- GFR Calc Thyroid Stimulating Hormone (TSH) 0.42 uIU/mL 0.358-3.74 [facility] Work Phone: Vitamin D 25-Hydroxy 39.6 ng/mL [facility] Work Phone: Comment on above: Vitamin D 25(OH) Sta tus Range Deficiency <20 ng/mL (50nmol/L) Insufficiency 20 - 30 ng/mL (50 - 75 nmol/L) Sufficiency 30 - 100 ng/mL (75 - 250 nmol/L) Toxicity >100 ng/mL (>250 nmol/L) Platelets bldon 06-20-2021 Platelets (Bld) [#/Vol] 293 10*3/uL 150-450 [facility] Work Phone: Serum or plasma albumin ambar urement (mass/volume)on 06-20-2021 Albumin [Mass/Vol] 3.3 g/dL 3.2-5.0 [facility] Work Phone: Serum or plasma albumin/glob ulin mass ratioon 06-20-2021 Albumin/Globulin [Mass ratio] 1.0 {ratio} 0.9-2.4 [facility] Work Phone: Serum or plasma calcium ambar urement (mass/volume)on 06-20-2021 Calcium [Mass/Vol] 8.7 mg/dL 8.5-10.1 [facility] Work Phone: Serum or plasma creatinine m easurement (mass/volume)on 06-20-2021 Creatinine [Mass/Vol] 1.34 mg/dL 0.70-1.30 [facility] Work Phone: Comment on above: The validity of the calculated GFR & GFRAA in patients over 70 years has not been determined. Clinical correlation is essential. Serum or plasma urea nitroge n measurement (mass/volume)on 06-20-2021 Urea nitrogen [Mass/Vol] 22 mg/dL 7-18 [facility] Work Phone: Thin prep Papanicolaou smear with manual screeningon 06-20-2021 Thin prep Papanicolaou smear with manual screening 18 U/L 15-37 [facility] Work Phone: Thin prep Papanicolaou smear with manual screening 5 5-15 [facility] Work Phone: Blood hemoglobin measurement (mass/volume)on 05-02-2021 Hemoglobin (Bld) [Mass/Vol] 9.2 g/dL 13.0-16.5 [facility] Work Phone: Hematocrit Auto (Bld) [Volum e fraction]on 05-02-2021 Hematocrit (Bld) [Volume fraction] 28.2 % 40-54 [facility] Work Phone: CNOVon 04-04-2021 CNOV Office Visit ([facility]) KULWANT ANDRADE ([id number]) 1940 M Date Time Provider Department 04/04/21 10:00 AM KIRBY IZQUIERDO During your visit today, we recorded the following information about you: Pulse Respiration Blood pressure Weight 68/minute 18/minute 112/82 73.5 kg Height 1.803 m Kirby Izquierdo APRN.CNP 04/04/2021 6:32 PM Signed HPI: Kulwant Andrade is a 80 year old male with PMH of HTN, CKD, who was admitted with acute hypoxic respiratory failure, on the basis of multilobar pneumonia in October 2020. He continue having dyspnea on exertion and fatigue. Stress testing was performed in October which was abnormal, showing inducible ischemia in distal inferolateral lateral apical segments; ejection fraction was 83%. 2D echo performed at that time showed normal left ventricular function with no valvular abnormalities. ?Left heart catheterization demonstrated?severe multivessel coronary disease, including approximately 90% lesions in the proximal RCA, proximal LAD, and proximal circumflex. He has no previous history of AR. ?There was a vague history of cardiomyopathy in the past. Pt has undergone some sort of ablation at [facility] in the remote past, but does not carry history of atrial fibrillation and?has?not been?anticoagulated. On 02/26/2021, patient underwent CABG x3 with Dr. Grewal. His post-op course was relatively unremarkable, and pt was tx to 4200 on POD #4. On POD #6, pt had a non sustained episode of tachy arrhythmia/possible atrial fibrillation. The episode lasted a few minutes with spontaneous resolve. K and mag were repleted. No further episodes. Pt was DC to SNF on POD #7. He was dc home after 6 days stay on SNF. Patient returns to the office today for one month post-discharge follow up. Interval events: none Kulwant Andrade reports home recovery as listed below: C/o: bilateral groin pain x1 week prohibiting him from walking Episodes of dizziness or syncope: no Chest pain: no Palpitations: no BP: reviewed per home log: has been high with SBP 140-170s from time to time. HR 60-80s. Tolerating diet well without changing bowel habits: good Fever, chills: no Activities at home with/without SOB or AWAN: walks frequently but slowed down this week due to pressure pain in groin bilaterally Post surgical pain: none without pain medications . Leg edema: none Sleep: not well Energy: not much yet Subjective: Current Outpatient Medications Medication Sig - lisinopril (ZESTRIL, PRINIVIL) 5 mg tablet Take 0.5 tablets by mouth once daily. Hold for SBP <110 mmHg - metoprolol tartrate, short acting, (LOPRESSOR) 50 mg tablet Take 1 tablet by mouth every 8 hours. Hold for HR <60 and SBP <100 - acetaminophen (TYLENOL) 500 mg tablet Take 2 tablets by mouth every 6 hours. - aspirin 81 mg chewable tablet Take 2 tablets by mouth once daily for 30 days, THEN 1 tablet once daily. - magnesium oxide (MAG-OX) 400 mg (241.3 mg magnesium) tablet Take 1 tablet by mouth once daily. - melatonin 3 mg tablet Take 1 tablet by mouth at bedtime as needed (insomnia). - pantoprazole DR (PROTONIX) 40 mg tablet Take 1 tablet by mouth DAILY (6 AM). - rosuvastatin (CRESTOR) 20 mg tablet Take 1 tablet by mouth daily at bedtime. - spironolactone (ALDACTONE) 25 mg tablet Take 25 mg by mouth once daily. - levothyroxine (SYNTHROID) 75 mcg tablet Take 75 mcg by mouth daily before breakfast. - lidocaine (SALONPAS) 4 % patch Apply 1 Patch as directed once daily. Cut in half and apply to either side of midsternal incision daily. Remove after 12 hrs. (Patient not taking: Reported on 04/04/2021 ) No current facility-administered medications for this visit. Amoxicillin, Amoxicillin-Pot Clavulanate, Atorvastatin, Clavulanic Acid, Fenofibrate, Levofloxacin, and Erythromycin PAST MEDICAL HISTORY Diagnosis Date - Chronic cholecystitis - Essential hypertension, benign - Myalgia and myositis, unspecified - Other and unspecified hyperlipidemia PAST SURGICAL HISTORY Procedure Laterality Date - CABG (3) VEIN GRAFTS AND ARTERIAL GRAFT(S) 02/26/2021 (springer-lad, svg-om1, svt-pda; left evh) - EXPLORATORY OF ABDOMEN Laparotomy, exp - LAPAROSCOPIC CHOLECYSTECTOMY 05/03/2007 - PAST SURGICAL HISTORY OF back surgery - PAST SURGICAL HISTORY OF excision of kidney tumor FAMILY HISTORY Problem Relation Age of Onset - Breast Cancer Sister x3 - Cancer Sister x2 lung - Cancer Brother appendix Social History Tobacco Use - Smoking status: Never Smoker - Smokeless tobacco: Never Used Substance Use Topics - Alcohol use: No - Drug use: Not on file Review of Systems Constitutional: Negative for chills, fever, malaise/fatigue and weight loss. HENT: Negative for sore throat. Respiratory: Negative for cough, sputum production, shortness of breath and wheezing. Cardiovascular: Negati (more content not included)... Normal [facility] XR CHEST 2V FRONTAL/LATon XR CHEST 2V FRONTAL/LAT * * *Final Repor t* * * DATE OF EXAM: Apr 04 2021 9:28AM [id number] - XR CHEST 2V FRONTAL/LAT / PROCEDURE REASON: S/P CABG (coronary artery bypass graft) * * * * Physician Interpretation * * * * EXAMINATION: CHEST RADIOGRAPH (2 VIEW FRONTAL and LATERAL) CLINICAL HISTORY: S/P CABG (coronary artery bypass graft) MQ: [id number]_6 EXAM DATE/TIME: 04/04/2021 9:28 AM COMPARISON: No relevant prior studies available. RESULT: Lines, tubes, and devices: None. Lungs and pleura: The previously noted bilateral pleural effusions have resolved. Patchy densities near the lung bases have also resolved. There are mild linear densities in the mid to lower right lung and near the left lung base suggestive of small areas of scarring or atelectasis. Cardiomediastinal silhouette: The cardiac size appears within normal limits. The thoracic aorta is mildly tortuous. Postsurgical changes are noted status post median sternotomy. Bones and soft tissues: Degenerative changes are noted in the thoracic spine. There is a mild compression deformity in the midthoracic spine. IMPRESSION: Resolution of bilateral pleural effusions and bibasilar infiltrate/atelectasis. Steel Wheel Engraver: JABARI Transcribe Date/Time: Apr 04 2021 2:56P Dictated by : GALILEA BOLES MD This examination was interpreted and the report reviewed and electronically signed by: GALILEA BOLES MD on Apr 04 2021 2:58PM EST [id number] Normal [facility] CNOVon 03-15-2021 CNOV Office Visit ([facility]) KULWANT ANDRADE ([id number]) 1940 M Date Time Provider Department 03/15/21 10:00 AM YANCY SHIPMAN During your visit today, we recorded the following information about you: Pulse Respiration Blood pressure Weight 66/minute 16/minute 104/62 73.5 kg Height 1.803 m Yancy Shipman APRN.CNP 03/15/2021 10:47 AM Signed HPI: This is a 80 year old man, who was [facility] for evaluation of symptomatic severe multivessel?CAD,?and for consideration for CABG.?In October of this year, pt developed myalgias, fever, dyspnea, fatigue, dry cough, and loss of taste. ?He was admitted with acute hypoxic respiratory failure, on the basis of multilobar pneumonia. ?He was diagnosed with Legionella pneumonia, complicated by acute renal insufficiency (creatinine 2.37), with evidence of sepsis (lactate level 3.8). He was ruled out for Covid infection. CT of the chest showed dense consolidation in the posterior segment of the right upper lobe, abutting the major fissure and patchy infiltrate in right lower lobe with a small right pleural effusion. ?Bronchoscopy with BAL was performed showing normal anatomy and no lesions. Pt noted that since October, he has had exertional dyspnea. ?He denied chest pressure, heaviness, burning, syncope, presyncope etc. Stress testing was performed in October which was abnormal, showing inducible ischemia in distal inferolateral lateral apical segments; ejection fraction was 83%. 2D echo performed at that time showed normal left ventricular function with no valvular abnormalities. ?Left heart catheterization demonstrated?severe multivessel coronary disease, including approximately 90% lesions in the proximal RCA, proximal LAD, and proximal circumflex. He has no previous history of AR. ?There was a vague history of cardiomyopathy in the past. Pt has undergone some sort of ablation at [facility] in the remote past, but does not carry history of atrial fibrillation and?has?not been?anticoagulated. There is a vague history of a positive rheumatologic work up, possible SLE. He had been on prednisone 60 mg daily, as of October, but is no longer on immunosuppression. ? On 02/26/2021, patient underwent CABG x3 with Dr. Grewal. His post-op course was relatively unremarkable, and pt was tx to 4200 on POD #4. On POD #6, pt had a non sustained episode of tachy arrhythmia/possible atrial fibrillation, with associated indigestion. The episode lasted a few minutes with spontaneous resolve. K and mag were repleted. No further episodes. Pt was DC to SNF on POD #7. Interval events: Pt denies acute cardiac and incisional complaints. He was DC from SNF last evening and his GF is staying with him. His pain is controlled. He did not bring a VS log with him; will start now. Kulwant Andrade reports home recovery as listed below: Episodes of dizziness or syncope: No Chest pain: No Palpitations: No BP: reviewed per home log: See above Tolerating diet well without changing bowel habits: Yes Fever, chills: No Activities at home with/without SOB or AWAN: walks around his home; encouraged to walk outside and as [place]. Post surgical pain without pain medications- Tylenol only Leg edema: No Sleep: Okay Energy: Good Subjective: Current Outpatient Medications Medication Sig - lisinopril (ZESTRIL, PRINIVIL) 5 mg tablet Take 0.5 tablets by mouth once daily. Hold for SBP <110 mmHg - metoprolol tartrate, short acting, (LOPRESSOR) 50 mg tablet Take 1 tablet by mouth every 8 hours. Hold for HR <60 and SBP <100 - acetaminophen (TYLENOL) 500 mg tablet Take 2 tablets by mouth every 6 hours. - aspirin 81 mg chewable tablet Take 2 tablets by mouth once daily for 30 days, THEN 1 tablet once daily. - lidocaine (SALONPAS) 4 % patch Apply 1 Patch as directed once daily. Cut in half and apply to either side of midsternal incision daily. Remove after 12 hrs. - magnesium oxide (MAG-OX) 400 mg (241.3 mg magnesium) tablet Take 1 tablet by mouth once daily. - melatonin 3 mg tablet Take 1 tablet by mouth at bedtime as needed (insomnia). - pantoprazole DR (PROTONIX) 40 mg tablet Take 1 tablet by mouth DAILY (6 AM). - rosuvastatin (CRESTOR) 20 mg tablet Take 1 tablet by mouth daily at bedtime. - spironolactone (ALDACTONE) 25 mg tablet Take 25 mg by mouth once daily. - levothyroxine (SYNTHROID) 75 mcg tablet Take 75 mcg by mouth daily before breakfast. No current facility-administered medications for this visit. Amoxicillin, Amoxicillin-Pot Clavulanate, Atorvastatin, Clavulanic Acid, Fenofibrate, Levofloxacin, and Erythromycin PAST MEDICAL HISTORY Diagnosis Date - Chronic cholecystitis - Essential hypertension, benign - Myalgia and myositis, unspecified - Other and unspecified hyperlipidemia PAST SURGICAL HISTORY Procedure Laterality (more content not included)... Normal [facility] Basic metabolic 2000 panelon 03-05-2021 Anion gap [Moles/Vol] 12 mmol/L Normal 9-18 [facility] Comment on above: Order Comment: Speci men Type: BLOOD SPECIMEN Performed By: #### 2 4321-2, ####[facility]ORY[facility]IA [id number] [place] [address] [place] Calcium [Mass/Vol] 8.2 mg/dL Low 8.5-10.2 [facility] Comment on above: Order Comment: Speci men Type: BLOOD SPECIMEN Performed By: #### 2 4320-2, ####[facility]ORY[facility] [id number] [address] [place] Chloride [Moles/Vol] 104 mmol/L Normal 97-105 [facility] Comment on above: Order Comment: Speci men Type: BLOOD SPECIMEN Performed By: #### 2 4320-2, ####[facility]ORYCLIA [id number] [place] [address] [place] CO2 [Moles/Vol] 24 mmol/L Normal 22-30 [facility] Comment on above: Order Comment: Speci men Type: BLOOD SPECIMEN Performed By: #### 2 4320-2, ####[facility]ORY[facility] [id number] [place] [address] [place] Creatinine [Mass/Vol] 1.04 mg/dL Normal 0.73-1.22 [facility] Comment on above: Order Comment: Speci men Type: BLOOD SPECIMEN Performed By: #### 2 4320-2, ####[facility]ORYCLIA [id number] [place] [address] [place] GFR/1.73 sq M.predicted MDRD (S/P/Bld) [Vol rate/Area] mL/min/{1.73_m2} Normal [facility] Comment on above: Order Comment: Speci men Type: BLOOD SPECIMEN Result Comment: >60 eGFR (Estimated GFR) Units of measure: mL/min/1.73 meters squared eGFR is derived from the reexpressed MDRD Study equation using the following parameters: serum creatinine, age, gender and race. The creatinine assay has been calibrated to be traceable to IDMS. An eGFR <60 mL/min/1.73m2 for >3 months is consistent with chronic kidney disease. Refer to KDOQI guidelines for clinical interpretation. In patients with unstable renal function, e.g. those with acute kidney injury, the eGFR may not accurately reflect actual GFR. Performed By: #### 2 432-, 58727-4 ####[facility]ORYCLIA [id number] [place] [address] [place] Glucose [Mass/Vol] 89 mg/dL Normal 74-99 [facility] Comment on above: Order Comment: Speci men Type: BLOOD SPECIMEN Result Comment: The [place] Diabetes [employer] (ADA) provides guidance for cutoff values for fasting glucose and random glucose. The ADA defines fasting as no caloric intake for at least 8 hours. Fasting plasma glucose results between 100 to 125 mg/dL indicate increased risk for diabetes (prediabetes). Fasting plasma glucose results greater than or equal to 126 mg/dL meet the criteria for diagnosis of diabetes. In the absence of unequivocal hyperglycemia, results should be confirmed by repeat testing. In a patient with classic symptoms of hyperglycemia or hyperglycemic crisis, random plasma glucose results greater than or equal to 200 mg/dL meet the criteria for diagnosis of diabetes. Reference: Standards of Medical Care in Diabetes 2016, [place] [employer]. Diabetes Care. 2016.39(Suppl 1). Performed By: #### 2 432-, 00395-2 ####[facility]ORYCLIA [id number] [place] [address] [place] Potassium [Moles/Vol] 3.9 mmol/L Normal 3.7-5.1 [facility] Comment on above: Order Comment: Speci men Type: BLOOD SPECIMEN Performed By: #### 2 4321-2, ####[facility]ORY[facility]IA [id number] [address] Sodium [Moles/Vol] 140 mmol/L Normal 136-144 [facility] Comment on above: Order Comment: Speci men Type: BLOOD SPECIMEN Performed By: #### 2 4321-2, ####[facility]ORYCL[facility] [id number] [address] Urea nitrogen [Mass/Vol] 16 mg/dL Normal 9-24 [facility] Comment on above: Order Comment: Speci men Type: BLOOD SPECIMEN Performed By: #### 2 432-2, ####[facility]ORYCLIA [id number] [address] CBC panel Auto (Bld)on 03-05 Erythrocyte distribution width (RBC) [Ratio] 13.7 % Normal 11.5-15.0 [facility] Comment on above: Order Comment: Speci men Type: BLOOD SPECIMEN Performed By: #### 5 8410-2 ####[facility]ORYCLIA [id number] [address] Hematocrit (Bld) [Volume fraction] 24.5 % Low 39.0-51.0 [facility] Comment on above: Order Comment: Speci men Type: BLOOD SPECIMEN Performed By: #### 5 8410-2 ####[facility]ORYCLIA [id number] [address] Hemoglobin (Bld) [Mass/Vol] 7.8 g/dL Low 13.0-17.0 [facility] Comment on above: Order Comment: Speci men Type: BLOOD SPECIMEN Performed By: #### 5 8410-2 ####[facility]ORYCLIA [id number] [address] MCH (RBC) [Entitic mass] 31.0 pg Normal 26.0-34.0 [facility] Comment on above: Order Comment: Speci men Type: BLOOD SPECIMEN Performed By: #### 5 8410-2 ####[facility]ORYCLIA [id number] [address] MCHC (RBC) [Mass/Vol] 31.8 g/dL Normal 30.5-36.0 [facility] Comment on above: Order Comment: Speci men Type: BLOOD SPECIMEN Performed By: #### 5 8410-2 ####[facility]ORYCLIA [id number] [address] MCV (RBC) [Entitic vol] 97.2 fL Normal 80.0-100.0 [facility] Comment on above: Order Comment: Speci men Type: BLOOD SPECIMEN Performed By: #### 5 8410-2 ####[facility]ORYCLIA [id number] [address] Nucleated RBC (Bld) [#/Vol] 0.04 10*3/uL High <0.01 [facility] Comment on above: Order Comment: Speci men Type: BLOOD SPECIMEN Performed By: #### 5 8410-2 ####[facility]ORYCLIA [id number] [address] Platelet mean volume (Bld) [Entitic vol] 9.5 fL Normal 9.0-12.7 [facility] Comment on above: Order Comment: Speci men Type: BLOOD SPECIMEN Performed By: #### 5 8410-2 ####[facility]ORYCLIA [id number] [address] Platelets (Bld) [#/Vol] 326 10*3/uL Normal 150-400 [facility] Comment on above: Order Comment: Speci men Type: BLOOD SPECIMEN Performed By: #### 5 8410-2 ####[facility]ORYCLIA [id number] [address] RBC (Bld) [#/Vol] 2.52 10*6/uL Low 4.20-6.00 [facility] Comment on above: Order Comment: Speci men Type: BLOOD SPECIMEN Performed By: #### 5 8410-2 ####[facility]ORYCLIA [id number] [address] [facility] WBC (Bld) [#/Vol] 7.02 10*3/uL Normal 3.70-11.00 [facility] Comment on above: Order Comment: Speci men Type: BLOOD SPECIMEN Performed By: #### 5 8410-2 ####[facility]ATORYCLIA [id number] [place] [id number] [facility] CNDSon 03-05-2021 CNDS HNO ID: [id number] Author: Yancy Shipman APRN.[employer]OR [employer]SEMBLER Service: Cardiovascular Surgery Author Type: Nurse Practitioner Type: Discharge Summary Filed: 03/05/2021 2:10 PM Note Text: Attestation signed by Todd Grewal MD at 03/12/2021 8:58 PM Attending Note I have personally performed a face to face assessment of the patient and have reviewed the PA/ROUTE SALES PERSON note. My solis findings include: Assessment/Plan are as above Other additions or changes: None Signature: Todd Grewal MD Date: 03/12/2021 Time: 8:57 PM DISCHARGE SUMMARY PATIENT NAME: Kulwant Andrade Code Status: Not on file Highest Readmission Risk Score: 13 The 30 day readmissions risk score is derived from an internally validated risk model which evaluates patient level characteristics, utilization history, medication orders and lab results up until the day of discharge. Patients with a score of 40 or above are considered highest risk for readmission. Specific patient level drivers will be listed at the bottom of the summary. Admission Information Admission Information ADMIT DATE: 02/23/2021 DISCHARGE DATE: 03/05/2021 MY DOCTORS AND MEDICAL TEAM: My Main Hospital Doctor: Todd Grewal MD Primary Care Provider: No primary care provider on file. My Medical Team Members: Treatment Team: Attending Provider: Todd Grewal MD Attending: Manpreet Lawson MD Consulting: Ramiro Lacy MD Consulting: Todd Grewal MD MY CONDITION AT DISCHARGE: Stable REASON I WAS IN THE HOSPITAL: Chest pain/Coronary artery disease SUMMARY OF WHAT HAPPENED WHILE I WAS IN THE HOSPITAL: You presented to the ED with complaints of chest pain. Left heart cath revealed multivessel coronary artery disease; with recommendations for coronary artery bypass surgery. OTHER PROBLEMS/DIAGNOSIS: Principal Problem: CAD (coronary artery disease) Resolved Problems: * No resolved hospital problems. * OPERATIONS PERFORMED WHILE IN THE HOSPITAL: Coronary artery bypass grafting IMPORTANT TEST/PROCEDURES: See above TEST RESULTS NOT AVAILABLE AT THIS TIME: None HPI: This is a 80 year old man, transferred from [facility] for evaluation of symptomatic severe multivessel?CAD,?and for consideration for CABG.?In October of this year, pt developed myalgias, fever, dyspnea, fatigue, dry cough, and loss of taste. ?He was admitted with acute hypoxic respiratory failure, on the basis of multilobar pneumonia. ?He was diagnosed with Legionella pneumonia, complicated by acute renal insufficiency (creatinine 2.37), with evidence of sepsis (lactate level 3.8). He was ruled out for Covid infection. CT of the chest showed dense consolidation in the posterior segment of the right upper lobe, abutting the major fissure and patchy infiltrate in right lower lobe with a small right pleural effusion. ?Bronchoscopy with BAL was performed showing normal anatomy and no lesions. Pt noted that since October, he has had exertional dyspnea. ?He denied chest pressure, heaviness, burning, syncope, presyncope etc. Stress testing was performed in October which was abnormal, showing inducible ischemia in distal inferolateral lateral apical segments; ejection fraction was 83%. 2D echo performed at that time showed normal left ventricular function with no valvular abnormalities. ?Left heart catheterization demonstrated?severe multivessel coronary disease, including approximately 90% lesions in the proximal RCA, proximal LAD, and proximal circumflex. He has no previous history of AR. ?There was a vague history of cardiomyopathy in the past. Pt has undergone some sort of ablation at [facility] in the remote past, but does not carry history of atrial fibrillation and?has?not been?anticoagulated. There is a vague history of a positive rheumatologic work up, possible SLE. He had been on prednisone 60 mg daily, as of October, but is no longer on immunosuppression. On 02/26/2021, patient underwent CABG x3 with Dr. Grewal. His post-op course has been relatively unremarkable, and pt was tx to 4200 on POD #4. AM CXR on 03/03 with small BL effusions. On POD #6, pt had a non sustained episode of tachy arrhythmia/possible atrial fibrillation, with associated indigestion. The episode lasted a few minutes with spontaneous resolve. K and mag were repleted. No further episodes. INTERVAL EVENTS / PERTINENT ROS:?NAEO, pt is hemodynamically stable. AM labs reviewed: HANDH stable, hypokalemia resolved. Per tele pt in NSR with PVCs. Pt denies acute cardiac and incisional complaints. Pain is controlled. He is ambulating without difficulty and has had BMs. Pt and daughter prefer he go to SNF at [place]. Plans for [place] this afternoon. CAD -S/p CABG x 3 (springer-lad, svg-om1, svt-pda; left (more content not included)... Normal [facility] Magnesium SerPl-mCncon 03-05 Magnesium [Mass/Vol] 2.1 mg/dL Normal 1.7-2.3 [facility] Comment on above: Order Comment: Speci men Type: BLOOD SPECIMEN Performed By: #### 2 4321-2, 11233-5 ####[facility]ORATORYCLIA [id number] [address] [place] THERAPY NTon 03-05-2021 THERAPY NT HNO ID: [id number] Author: Annalise Pace PT Service: Physical Therapy Author Type: Physical Therapist Type: Therapy (PT/OT/Speech/Resp) Filed: 03/05/2021 11:50 AM Note Text: Physical Therapy Treatment SERVICE DATE: 03/05/2021 SERVICE TIME: 1100 to 1125 ROOM: [place] [address] Recommended Discharge Disposition: Acute Rehab Recommended Discharge Disposition Comments: Patient with significant improvement since initial evaluation. He continues to require physical assist for mobility and remains unsafe to return home alone. Patient however is much more appropriate to discharge to acute rehab at this time as he will tolerate 3 hours of therapy and was completely independent prior to admission. Recommended Discharge Disposition Due to: Patient requires daily, facility-based rehabilitation from at least one discipline due to:;ADL impairment resulting in caregiver dependence;decline in functional status requiring daily skilled care PT 6 Clicks Score: 17 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 Reason for Hospital Admission: SOB and AWAN Relevant Past Medical History: legionaire's PNA 09/19, CAD Response to Therapy Interventions: Notable progression with functional activities/skills, Good participation in activities, Requires additional time to complete activities Continue skilled needs due to: Functional mobility/skill impairments, Safety concerns Physical Therapy Problem List: Decreased Activity Tolerance;Functional Mobility Impairment;Balance Impaired Treatment Interventions: Education;Functional Mobility Training;Balance Training;Strengthening Home Environment Patient Lives With: Self/Alone Assistance Available: multimedia services coordinator (dtr lives next door; SO is going to come over and assist at D/C) Entry To Home: Stairs Prior Functional Level: Within Functional Limits Prior Functional Level Comments: indep; has been having SOB lately but still indep Patient Report: Patient agreeable to PT session mobility performed during session in bold, other mobility completed during prior session and may no longer be correct or appropriate to complete. CURRENT FUNCTIONAL STATUS: Most recent performance Current Functional Mobility Assist Level Additional Information Rolling Supine to Sit Contact Guard Assistance Sit to Supine Minimal Assistance;Additional Information Patient required cueing and assistance to return to supine in bed without use of UEs. Provided instruction for reverse log roll. Assisted to get BLEs into the bed Scooting Sit to Stand Moderate Assistance Provided cueing for rocking technique with sit to stand transfer. Patient initially trying to push up with UEs. Provided re-education about sternal precautions and that he cannot push up with UEs. Provided patient with pillow to hug when standing. Stand to Sit Minimal Assistance Cues to make sure legs are touching the bed prior to sitting. Patient trying to reach back with RUE. Cues to not reach with arms. Bed to Chair Toilet/Commode Gait Contact Guard Assistance Gait Device: Wheeled Walker Gait Distance (feet): 150ft Limited in further distances secondary to fatigue. No instability or LOB. Reduced step length and velocity throughout. Stairs Curb Step Car Transfer Blank mcmahon indicate activity not attempted General Deviations/Observations : Anastasia decreased;Step length decreased Balance: Static Standing Static Standing Balance: Fair Patient able to maintain balance with handhold support, may require occasional minimal assistance -HLM: 7: Walk 25 feet or more Learning/Educational Needs: Discharge Plan;Disease Process;Functional Activities/Mobility;Slava abilitation Techniques and Procedures;Safety Goals for Plan of Care: Patient /Caregiver Goals: Go Home Transfer supine to/from sit with: Minimal Assistance (within sternal precautions) Transfer sit to/from stand with: Contact Guard Assistance Ambulate with: Contact Guard Assistance Distance: 40x2 Device: Wheeled Walker Goal: sit to/from stand x5 reps SBA Progress Toward Goals: Progressing as expected Rehab Potential: Fair Patient will be discontinued from Physical Therapy when no further skilled needs are identified in this setting. PLAN: PT Frequency: 3 times per week (1-3) Plan of Care developed with: Patient TREATMENT INTERVENTIONS: Therapy Diagnosis: Reduced mobility-other;Muscle Weakness (generalized);Unsteadin ess on feet;Abnormalities of gait and mobility-other Interventions Provided: Therapeutic Activity (65144);Therapeutic Exercise (52288) Therapeutic Exercise (70859) Treatment Minutes: 10 $ Therapeutic Exercise (56640) Billed Units: 1 unit Patient completed general strengthening exercises in supine, at edge of bed or chair (ankle pump, heel slide with leg press against resistance, hip abd/add, straight leg raise, short arc quad, hip adductor squeeze) x 10-12 rep (more content not included)... Normal [facility] Basic metabolic 2000 panelon 03-04-2021 Anion gap [Moles/Vol] 12 mmol/L Normal 9-18 [facility] Comment on above: Order Comment: Speci men Type: BLOOD SPECIMEN Performed By: #### 2 4321-2 ####[facility]ATORYCLIA [id number] [place] [address] [place] Calcium [Mass/Vol] 7.8 mg/dL Low 8.5-10.2 [facility] Comment on above: Order Comment: Speci men Type: BLOOD SPECIMEN Performed By: #### 2 4321-2 ####[facility]ATORYCLIA [id number] [address] [place] Chloride [Moles/Vol] 106 mmol/L High 97-105 [facility] Comment on above: Order Comment: Speci men Type: BLOOD SPECIMEN Performed By: #### 2 4321-2 ####[facility]ORATORYCLIA [id number] [address] [place] CO2 [Moles/Vol] 23 mmol/L Normal 22-30 [facility] Comment on above: Order Comment: Speci men Type: BLOOD SPECIMEN Performed By: #### 2 4321-2 ####[facility]ORYCLIA [id number] [address] [place] Creatinine [Mass/Vol] 0.94 mg/dL Normal 0.73-1.22 [facility] Comment on above: Order Comment: Speci men Type: BLOOD SPECIMEN Performed By: #### 2 4321-2 ####[facility]ATORYCLIA [id number] [address] [place] GFR/1.73 sq M.predicted MDRD (S/P/Bld) [Vol rate/Area] mL/min/{1.73_m2} Normal [facility] Comment on above: Order Comment: Speci men Type: BLOOD SPECIMEN Result Comment: >60 eGFR (Estimated GFR) Units of measure: mL/min/1.73 meters squared eGFR is derived from the reexpressed MDRD Study equation using the following parameters: serum creatinine, age, gender and race. The creatinine assay has been calibrated to be traceable to IDMS. An eGFR <60 mL/min/1.73m2 for >3 months is consistent with chronic kidney disease. Refer to KDOQI guidelines for clinical interpretation. In patients with unstable renal function, e.g. those with acute kidney injury, the eGFR may not accurately reflect actual GFR. Performed By: #### 2 4321-2 ####[facility]ATORYCLIA [id number] [address] Glucose [Mass/Vol] 86 mg/dL Normal 74-99 [facility] Comment on above: Order Comment: Speci men Type: BLOOD SPECIMEN Result Comment: The [place] Diabetes [employer] (ADA) provides guidance for cutoff values for fasting glucose and random glucose. The ADA defines fasting as no caloric intake for at least 8 hours. Fasting plasma glucose results between 100 to 125 mg/dL indicate increased risk for diabetes (prediabetes). Fasting plasma glucose results greater than or equal to 126 mg/dL meet the criteria for diagnosis of diabetes. In the absence of unequivocal hyperglycemia, results should be confirmed by repeat testing. In a patient with classic symptoms of hyperglycemia or hyperglycemic crisis, random plasma glucose results greater than or equal to 200 mg/dL meet the criteria for diagnosis of diabetes. Reference: Standards of Medical Care in Diabetes 2016, [place] [employer]. Diabetes Care. 2016.39(Suppl 1). Performed By: #### 2 4321-2 ####[facility]ATORYCLIA [id number] [address] STATES OF [facility] Potassium [Moles/Vol] 3.3 mmol/L Low 3.7-5.1 [facility] Comment on above: Order Comment: Speci men Type: BLOOD SPECIMEN Performed By: #### 2 4321-2 ####[facility]ATORYCLIA [id number] [address] Sodium [Moles/Vol] 141 mmol/L Normal 136-144 [facility] Comment on above: Order Comment: Speci men Type: BLOOD SPECIMEN Performed By: #### 2 4321-2 ####[facility]ATORYCLIA [id number] [address] Urea nitrogen [Mass/Vol] 16 mg/dL Normal 9-24 [facility] Comment on above: Order Comment: Speci men Type: BLOOD SPECIMEN Performed By: #### 2 4321-2 ####[facility]ORATORYCLIA [id number] [address] CASE MANAGEMon 03-04-2021 CASE MANAGEM HNO ID: [id number] Author: Pooja Johnson RN Service: Nursing Author Type: Registered Nurse Type: Care Mgt Progress Note Filed: 03/04/2021 3:23 PM Note Text: CARE MANAGEMENT PROGRESS NOTE SERVICE DATE: 03/04/2021 SERVICE TIME: 3:22 PM LOS: 9 days Auth to [facility] obtained. Auth is good through 03/06. Can d/c when medically ready SIGNATURE: Pooja Johnson RN PATIENT NAME: Kulwant Andrade DATE: March 04, 2021 TIME: 3:22 PM PAGER/CONTACT #: [phone] Normal [facility] CASE MANAGEM HNO ID: [id number] Author: Pooja Johnson RN Service: Nursing Author Type: Registered Nurse Type: Care Mgt Progress Note Filed: 03/04/2021 8:37 AM Note Text: CARE MANAGEMENT PROGRESS NOTE SERVICE DATE: 03/04/2021 SERVICE TIME: 8:34 AM LOS: 9 days Updated clinicals sent to [facility]. Will need auth. Asked for auth to be initiated today. SIGNATURE: Pooja Johnson RN PATIENT NAME: Kulwant Andrade DATE: March 04, 2021 TIME: 8:34 AM PAGER/CONTACT #: [phone] - Normal [facility] CBC panel Auto (Bld)on 03-04 Erythrocyte distribution width (RBC) [Ratio] 13.5 % Normal 11.5-15.0 [facility] Comment on above: Order Comment: Speci men Type: BLOOD SPECIMEN Performed By: #### 5 8410-2 ####[facility]ORATORYCLIA [id number] [address] STATES OF [facility] Hematocrit (Bld) [Volume fraction] 23.4 % Low 39.0-51.0 [facility] Comment on above: Order Comment: Speci men Type: BLOOD SPECIMEN Performed By: #### 5 8410-2 ####[facility]ATORYCLIA [id number] [address] [place] Hemoglobin (Bld) [Mass/Vol] 7.7 g/dL Low 13.0-17.0 [facility] Comment on above: Order Comment: Speci men Type: BLOOD SPECIMEN Performed By: #### 5 8410-2 ####[facility]ORATORYCLIA [id number] [address] MCH (RBC) [Entitic mass] 31.8 pg Normal 26.0-34.0 [facility] Comment on above: Order Comment: Speci men Type: BLOOD SPECIMEN Performed By: #### 5 8410-2 ####[facility]ATORYCLIA [id number] [address] MCHC (RBC) [Mass/Vol] 32.9 g/dL Normal 30.5-36.0 [facility] Comment on above: Order Comment: Speci men Type: BLOOD SPECIMEN Performed By: #### 5 8410-2 ####[facility]ATORYCLIA [id number] [address] MCV (RBC) [Entitic vol] 96.7 fL Normal 80.0-100.0 [facility] Comment on above: Order Comment: Speci men Type: BLOOD SPECIMEN Performed By: #### 5 8410-2 ####[facility]ATORYCLIA [id number] [address] Nucleated RBC (Bld) [#/Vol] 0.05 10*3/uL High <0.01 [facility] Comment on above: Order Comment: Speci men Type: BLOOD SPECIMEN Performed By: #### 5 8410-2 ####[facility]ATORYCLIA [id number] [address] Platelet mean volume (Bld) [Entitic vol] 10.0 fL Normal 9.0-12.7 [facility] Comment on above: Order Comment: Speci men Type: BLOOD SPECIMEN Performed By: #### 5 8410-2 ####[facility]ORATORYCLIA [id number] [place] [address] [place] Platelets (Bld) [#/Vol] 268 10*3/uL Normal 150-400 [facility] Comment on above: Order Comment: Speci men Type: BLOOD SPECIMEN Performed By: #### 5 8410-2 ####[facility]ATORYCLIA [id number] [address] [place] RBC (Bld) [#/Vol] 2.42 10*6/uL Low 4.20-6.00 [facility] Comment on above: Order Comment: Speci men Type: BLOOD SPECIMEN Performed By: #### 5 8410-2 ####[facility]ATORYCLIA [id number] [address] WBC (Bld) [#/Vol] 6.07 10*3/uL Normal 3.70-11.00 [facility] Comment on above: Order Comment: Speci men Type: BLOOD SPECIMEN Performed By: #### 5 8410-2 ####[facility]ATORYCLIA [id number] [address] Magnesium SerPl-mCncon 03-04 Magnesium [Mass/Vol] 1.9 mg/dL Normal 1.7-2.3 [facility] Comment on above: Order Comment: Speci men Type: BLOOD SPECIMEN Performed By: #### 1 9123-9 ####[facility]ATORYCLIA [id number] [address] NUTRITIONon 03-04-2021 NUTRITION HNO ID: [id number] Author: Kiera Valdez RD Service: Nutrition Therapy Author Type: Registered Dietitian Type: Nutrition Filed: 03/04/2021 1:31 PM Note Text: NUTRITION THERAPY PROGRESS NOTE SERVICE DATE: 03/04/2021 SERVICE TIME: 11:05 Nutrition Assessment: Recommended Malnutrition Diagnosis: No Malnutrition Identified (02/25/21 1220 : Kiera Valdez RD) Estimated kilocalorie needs: 7027-0270 Calorie Calculation Method: 25-30 kcals/kg Estimated protein needs (grams): 89-112 Grams protein determined by: 1.2 - 1.5 g/kg Care Plan: Continue current diet Supplements: Ensure Max BID Monitor and Evaluation: Meet greater than 75% of estimated needs;Monitor bowel function;Monitor fluid/electrolyte balance;Monitor labs, I/Os, vital signs, weight Discharge Recommendations: Diet;Oral Supplements Diet: Heart healthy Oral Supplements: Ensure Max or equivalent 1-2x/day until intake improved Interval History: CTS following post-CABG, patient had BM, walking, planning to leave for rehab soon. Anthropometrics: Height: 182.9 cm (6') Weight: 82.6 kg (182 lb 1.6 oz) Dosing Weight: 74.3 kg (163 lb 12.8 oz) Usual Weight: 77.1 kg (170 lb) (with shoes) Body mass index is 24.7 kg/m?. Weight change percentage over time: Patient reports he lost 22 lbs beginning of this year d/t acute illness. Has put weight back on and stayed in his range. Does not like to go above 170 lbs. Intake History: Current Intake: Less than or equal to 75% estimated energy needs Over: 5 days with >75% intake for 4 days prior. Today he reports he has been eating a bit less since surgery, but still feels he is eating alright overall. Nursing recording about 75% of meals consumed. He does drink the Ensure, but states he gets about half of them down. Frustrated today d/t issues with blood pressure. Diet Orders (From admission, onward) Start Ordered 02/27/21 0900 DIET SUPPLEMENTS START NOW Question Answer Comment Supplement 1 ENSURE MAX CHOCOLATE Supplement 1 Frequency 1. BREAKFAST Supplement 1 Frequency 5. DINNER 02/27/21 0847 02/27/21 0830 DIET HEART HEALTHY START NOW Question: Heart Healthy Answer: 4 GM SODIUM (LOW SAT FAT) 02/27/21 0826 MNT Billing Type: Re-assess/15 min 1 unit SIGNATURE: Kiera Valdez RD PATIENT NAME: Kulwant Andrade DATE: March 04, 2021 TIME: 11:05 AM PAGER: [phone] [facility] ALLIED HEALTHon 03-03-2021 ALLIED HEALTH HNO ID: [id number] Author: RT Aminta(R) Service: Radiology Author Type: Technologist Type: Allied Health Filed: 03/03/2021 8:08 AM Note Text: Radiology Service Progress Note PATIENT NAME: Kulwant Andrade DATE OF SERVICE: March 03, 2021 TIME: 8:08 AM PATIENT IDENTITY VERIFICATION COMPLETED USING TWO (2) IDENTIFIERS: Name and Date of confirmed by patient verbally and Name and Date of confirmed by identification band. FALL SCREENING: Has the patient had 2 falls in the last year or 1 fall with injury or currently using an Ambulatory Assistive Device (Walker, Cane, Wheelchair, Crutches, etc.)? Inpatient: Screened on floor PATIENT GENDER DATA: Male PATIENT RELEVANT IMPLANT DATA REVIEWED: Not Applicable RADIOLOGY DEPARTMENT: General X-ray: Exam(s) Completed: Chest X-Ray PERIPHERAL IV DATA: Not applicable SIGNED BY: RT Aminta(R) March 03, 2021 8:08 AM Normal [facility] Basic metabolic 2000 panelon 03-03-2021 Anion gap [Moles/Vol] 13 mmol/L Normal 9-18 [facility] Comment on above: Order Comment: Speci men Type: BLOOD SPECIMEN Performed By: #### 2 4321-2 ####[facility]ATORYCLIA [id number] [address] STATES OF [facility] Calcium [Mass/Vol] 7.9 mg/dL Low 8.5-10.2 [facility] Comment on above: Order Comment: Speci men Type: BLOOD SPECIMEN Performed By: #### 2 4321-2 ####[facility]ATORYCLIA [id number] [place] [address] [place] Chloride [Moles/Vol] 106 mmol/L High 97-105 [facility] Comment on above: Order Comment: Speci men Type: BLOOD SPECIMEN Performed By: #### 2 4321-2 ####[facility]ATORYCLIA [id number] [place] [address] [place] CO2 [Moles/Vol] 22 mmol/L Normal 22-30 [facility] Comment on above: Order Comment: Speci men Type: BLOOD SPECIMEN Performed By: #### 2 4321-2 ####[facility]ATORYCLIA [id number] [address] STATES [place] [facility] Creatinine [Mass/Vol] 0.93 mg/dL Normal 0.73-1.22 [facility] Comment on above: Order Comment: Speci men Type: BLOOD SPECIMEN Performed By: #### 2 4321-2 ####[facility]ATORYCLIA [id number] [address] [place] GFR/1.73 sq M.predicted MDRD (S/P/Bld) [Vol rate/Area] mL/min/{1.73_m2} Normal [facility] Comment on above: Order Comment: Speci men Type: BLOOD SPECIMEN Result Comment: >60 eGFR (Estimated GFR) Units of measure: mL/min/1.73 meters squared eGFR is derived from the reexpressed MDRD Study equation using the following parameters: serum creatinine, age, gender and race. The creatinine assay has been calibrated to be traceable to IDMS. An eGFR <60 mL/min/1.73m2 for >3 months is consistent with chronic kidney disease. Refer to KDOQI guidelines for clinical interpretation. In patients with unstable renal function, e.g. those with acute kidney injury, the eGFR may not accurately reflect actual GFR. Performed By: #### 2 4321-2 ####[facility]ATORYCLIA [id number] [address] STATES OF [facility] Glucose [Mass/Vol] 89 mg/dL Normal 74-99 [facility] Comment on above: Order Comment: Speci [facility] Type: BLOOD SPECIMEN Result Comment: The [place] [employer] (ADA) provides guidance for cutoff values for fasting glucose and random glucose. The ADA defines fasting as no caloric intake for at least 8 hours. Fasting plasma glucose results between 100 to 125 mg/dL indicate increased risk for diabetes (prediabetes). Fasting plasma glucose results greater than or equal to 126 mg/dL meet the criteria for diagnosis of diabetes. In the absence of unequivocal hyperglycemia, results should be confirmed by repeat testing. In a patient with classic symptoms of hyperglycemia or hyperglycemic crisis, random plasma glucose results greater than or equal to 200 mg/dL meet the criteria for diagnosis of diabetes. Reference: Standards of Medical Care in Diabetes 2016, [place] [employer]. Diabetes Care. 2016.39(Suppl 1). Performed By: #### 2 4321-2 ####[facility] LABORATORYCLIA [id number] [address] Potassium [Moles/Vol] 3.5 mmol/L Low 3.7-5.1 [facility] Comment on above: Order Comment: Speci men Type: BLOOD SPECIMEN Performed By: #### 2 4321-2 ####[facility] LABORATORYCLIA [id number] [address] Sodium [Moles/Vol] 141 mmol/L Normal 136-144 [facility] Comment on above: Order Comment: Speci men Type: BLOOD SPECIMEN Performed By: #### 2 4321-2 ####[facility] LABORATORYCLIA [id number] [address] Urea nitrogen [Mass/Vol] 20 mg/dL Normal 9-24 [facility] Comment on above: Order Comment: Speci men Type: BLOOD SPECIMEN Performed By: #### 2 4321-2 ####[facility] LABORATORYCLIA [id number] [address] CBC panel Auto (Bld)on 03-03 Erythrocyte distribution width (RBC) [Ratio] 13.5 % Normal 11.5-15.0 [facility] Comment on above: Order Comment: Speci men Type: BLOOD SPECIMEN Performed By: #### 5 8410-2 ####[facility] LABORATORYCLIA [id number] [address] Hematocrit (Bld) [Volume fraction] 22.3 % Low 39.0-51.0 [facility] Comment on above: Order Comment: Speci men Type: BLOOD SPECIMEN Performed By: #### 5 8410-2 ####[facility] LABORATORYCLIA [id number] [address] Hemoglobin (Bld) [Mass/Vol] 7.2 g/dL Low 13.0-17.0 [facility] Comment on above: Order Comment: Speci men Type: BLOOD SPECIMEN Performed By: #### 5 8410-2 ####[facility] LABORATORYCLIA [id number] [address] MCH (RBC) [Entitic mass] 31.3 pg Normal 26.0-34.0 [facility] Comment on above: Order Comment: Speci men Type: BLOOD SPECIMEN Performed By: #### 5 8410-2 ####[facility] LABORATORYCLIA [id number] [address] MCHC (RBC) [Mass/Vol] 32.3 g/dL Normal 30.5-36.0 [facility] Comment on above: Order Comment: Speci men Type: BLOOD SPECIMEN Performed By: #### 5 8410-2 ####[facility] LABORATORYCLIA [id number] [address] MCV (RBC) [Entitic vol] 97.0 fL Normal 80.0-100.0 [facility] Comment on above: Order Comment: Speci men Type: BLOOD SPECIMEN Performed By: #### 5 8410-2 ####[facility] LABORATORYCLIA [id number] [address] Nucleated RBC (Bld) [#/Vol] 0.05 10*3/uL High <0.01 [facility] Comment on above: Order Comment: Speci men Type: BLOOD SPECIMEN Performed By: #### 5 8410-2 ####[facility] LABORATORYCLIA [id number] [address] Platelet mean volume (Bld) [Entitic vol] 9.7 fL Normal 9.0-12.7 [facility] Comment on above: Order Comment: Speci men Type: BLOOD SPECIMEN Performed By: #### 5 8410-2 ####[facility] LABORATORYCLIA [id number] [address] Platelets (Bld) [#/Vol] 221 10*3/uL Normal 150-400 [facility] Comment on above: Order Comment: Speci men Type: BLOOD SPECIMEN Performed By: #### 5 8410-2 ####[facility] LABORATORYCLIA [id number] [address] RBC (Bld) [#/Vol] 2.30 10*6/uL Low 4.20-6.00 [facility] Comment on above: Order Comment: Speci men Type: BLOOD SPECIMEN Performed By: #### 5 8410-2 ####[facility] LABORATORYCLIA [id number] [place] [id number] [facility] WBC (Bld) [#/Vol] 6.46 10*3/uL Normal 3.70-11.00 [facility] Comment on above: Order Comment: Speci men Type: BLOOD SPECIMEN Performed By: #### 5 8410-2 ####[facility] LABORATORYCLIA [id number] [address] THERAPY NTon 03-03-2021 THERAPY NT HNO ID: [id number] Author: Daphnie Blackburn OT/L Service: Occupational Therapy Author Type: Occupational Therapist Type: Therapy (PT/OT/Speech/Resp) Filed: 03/03/2021 10:39 AM Note Text: Occupational Therapy Treatment SERVICE DATE: 03/03/2021 SERVICE TIME: 1009 to 1028 ROOM: [place] [address] Recommended Discharge Disposition: Acute Rehab Recommended Discharge Disposition Comments: Pt with progression towards occupational therapy goals but continues to be functioning below baseline. Pt lives alone and does not have 24/7 assist with functional mobilty, transfers, and ADL's. Anticipate that pt will tolerate 3 hrs/day of therapy. Recommended Discharge Disposition Due to: Patient requires an active, intensive rehabilitation therapy program due to:;ADL impairment resulting in caregiver dependence;decline in functional status requiring daily skilled care;ongoing intervention of multiple therapy disciplines OT 6 Clicks Score: 14 Pt with ongoing progress towards occupational therapy goals at this date but continues to require physical assist with functional transfers and ADL's as well as verbal cueing to maintain sternal precautions. Pt completed functional transfer to bathroom at this date with wheeled walker for toileting and grooming standing sink side. Pt is extremely motivated to return to PLOF and anticipate that he will tolerate 3hrs/day of therapy. 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 Reason for Hospital Admission: SOB and AWAN Relevant Past Medical History: legionaire's PNA 09/19, CAD Response to Therapy Interventions: Good participation in activities, Improved tolerance for activity, Requires additional time to complete activities Continue skilled needs due to: Functional impairment Occupational Therapy Problem List: Impaired Self Care;Decreased Activity Tolerance;Functional Mobility Impairment;Balance Impaired Cognition/Communication Deficits Orientation Deficits: Not oriented to Place Responsiveness: Awake, Alert Treatment Interventions: Self Care / Home Management;Education;Fu nctional Mobility Training;Strengthening Home Environment Patient Lives With: Self/Alone Assistance Available: multimedia services coordinator (dtr lives next door; SO is going to come over and assist at D/C) Entry To Home: Stairs Prior Functional Level: Within Functional Limits Prior Functional Level Comments: indep; has been having SOB lately but still indep Patient Report: Pt agreeable to OT treatment session CURRENT FUNCTIONAL STATUS: Most recent performance Current Activities of Daily Living Assist Level Additional Information Feeding Set Up Grooming Minimal Assistance Standing sink side. Required assist with opening toothpaste container. Completed oral care and face washing at this date. Bathing Upper Body Moderate Assistance Bathing Lower Body Maximal Assistance Dressing Upper Body Moderate Assistance Dressing Lower Body Maximal Assistance Toileting Moderate Assistance Completed in bathroom. Required assist with back fatuma care at this date while standing at wheeled walker and maintaining sternal precautions. Instrumental Activities of Daily Living Assist Level Additional Information Meal/Beverage Prep Cleaning Laundry Medication Management with Strategies Functional Mobility Assist Level Additional Information Rolling Supine to Sit Minimal Assistance Sit to Supine Minimal Assistance Scooting Moderate Assistance Verbal cueing to not push through UE to maintain sternal precautions. Pillow placed in pt's arms for compliance. Required assist with draw sheet. Sit to Stand Minimal Assistance rocking technique used to build momentum with transfer. Pillow placed in pt's arms to assist with maintaining precautions. Stand to Sit Minimal Assistance Bed to Chair Toilet/Commode Minimal Assistance Verbal cueing to cross arms to maintain sternal precautions to transfer. Placed pillow in pt's arms when completing functional transfer off of toilet to maintain precautions. Shower Functional Mobility Contact Guard Assistance Wheeled Walker Blank mcmahon indicate activity not attempted Balance: Static Sitting;Static Standing;Dynamic Sitting;Dynamic Standing Static Sitting Balance: Good Patient able to maintain balance without handhold support, limited postural sway Dynamic Sitting Balance: Fair Patient accepts minimal challenge, able to maintain balance while turning head/trunk Static Standing Balance: Fair Patient able to maintain balance with handhold support, may require occasional minimal assistance Dynamic Standing Balance: Fair Patient accepts minimal challenge, able to maintain balance while turning head/trunk Activity Tolerance: Sitting Activity;Standing Activity Sitting Activity: bed mobility, sitting EOB, toileting Sitting Activity Tolerance (in minutes): 6 Standing Activity: sit to stand transfer, funct (more content not included)... Normal [facility] THERAPY NT HNO ID: [id number] Author: Karlos Martinez PT Service: Physical Therapy Author Type: Physical Therapist Type: Therapy (PT/OT/Speech/Resp) Filed: 03/03/2021 9:57 AM Note Text: Physical Therapy Treatment SERVICE DATE: 03/03/2021 SERVICE TIME: 09 to 0943 ROOM: [place] [address] Recommended Discharge Disposition: Acute Rehab Recommended Discharge Disposition Comments: Patient with significant improvement since initial evaluation. He continues to require physical assist for mobility and remains unsafe to return home alone. Patient however is much more appropriate to discharge to acute rehab at this time as he will tolerate 3 hours of therapy and was completely independent prior to admission. Recommended Discharge Disposition Due to: Patient requires daily, facility-based rehabilitation from at least one discipline due to:;ADL impairment resulting in caregiver dependence;decline in functional status requiring daily skilled care PT 6 Clicks Score: 18 Patient with marked improvement in independence this date. Patient currently is functioning at a level of minimal assist/ contact guard assist for all mobility with use of front wheeled walker up to 150'x1. Discharge disposition changed to acute rehab as patient will be able to tolerate 3 hours of therapy at time of discharge. Patient is very motivated to return to prior level of function and was completely independent prior to admit. 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 Reason for Hospital Admission: SOB and AWAN Relevant Past Medical History: legionaire's PNA 09/19, CAD Response to Therapy Interventions: Notable progression with functional activities/skills, Good participation in activities, Requires additional time to complete activities Physical Therapy Problem List: Decreased Activity Tolerance;Functional Mobility Impairment;Balance Impaired Treatment Interventions: Education;Functional Mobility Training;Balance Training;Strengthening Plan for next visit: Sit to Stand Transfers, Gait training, Fall prevention, Standing Balance, Standing Tolerance Home Environment Patient Lives With: Self/Alone Assistance Available: multimedia services coordinator (dtr lives next door; SO is going to come over and assist at D/C) Entry To Home: Stairs Prior Functional Level: Within Functional Limits Prior Functional Level Comments: indep; has been having SOB lately but still indep Patient Report: pleasant and agreeable to PT CURRENT FUNCTIONAL STATUS: Most recent performance mobility performed during session in bold, other mobility completed during prior session and may no longer be correct or appropriate to complete. Current Functional Mobility Assist Level Additional Information Rolling Supine to Sit Contact Guard Assistance Sit to Supine Contact Guard Assistance Scooting Sit to Stand Minimal Assistance;Additional Information Much improved independence. Increased time with use of momentum to achieve upright Stand to Sit Minimal Assistance;Additional Information Physical assist to control descent. VCs to maintain sternal precautions Bed to Chair Toilet/Commode Gait Contact Guard Assistance;Additional Information Gait Device: Wheeled Walker Gait Distance (feet): 150'x1 Limited in further distances secondary to fatigue. No instability or LOB. Reduced step length and velocity throughout. Stairs Curb Step Car Transfer Blank mcmahon indicate activity not attempted General Deviations/Observations : Anastasia decreased;Step length decreased Range of Motion: WFL Strength: WFL Balance: Static Standing Static Standing Balance: Poor Patient requires handhold support and moderate to maximal assistance to maintain position Activity Tolerance: Standing Activity Standing Activity: static stand with mod A Standing Activity Tolerance (in minutes): 1.5 (x2 trials) -HLM: 7: Walk 25 feet or more Learning/Educational Needs: Discharge Plan;Disease Process;Functional Activities/Mobility;Slava abilitation Techniques and Procedures;Safety Goals for Plan of Care: Patient /Caregiver Goals: Go Home Transfer supine to/from sit with: Minimal Assistance (within sternal precautions) Transfer sit to/from stand with: Contact Guard Assistance Ambulate with: Contact Guard Assistance Distance: 40x2 Device: Wheeled Walker Goal: sit to/from stand x5 reps SBA Progress Toward Goals: Progressing as expected Rehab Potential: Fair Patient will be discontinued from Physical Therapy when no further skilled needs are identified in this setting. PLAN: PT Frequency: 3 times per week (1-3) Plan of Care developed with: Patient TREATMENT INTERVENTIONS: Therapy Diagnosis: Reduced mobility-other;Muscle Weakness (generalized);Unsteadin ess on feet;Abnormalities of gait and mobility-other Interventions Provided: Therapeutic Activity (30274);Gait Training (08380) Therapeutic Activity (18452) Treatme (more content not included)... Normal [facility] XR CHEST 2V FRONTAL/LATon XR CHEST 2V FRONTAL/LAT * * *Final Repor t* * * DATE OF EXAM: Mar 03 2021 8:09AM AKX 5291 - XR CHEST 2V FRONTAL/LAT / PROCEDURE REASON: Post-operative / post-procedure assessment, asymptomatic * * * * Physician Interpretation * * * * EXAMINATION: CHEST RADIOGRAPH (2 VIEW FRONTAL and LATERAL) CLINICAL HISTORY: Post-operative / post-procedure assessment, asymptomatic MQ: XC2_6 EXAM DATE/TIME: 03/03/2021 8:09 AM COMPARISON: 03/02/2021 RESULT: Lines, tubes, and devices: None. Lungs and pleura: There are persistent bilateral pleural effusions. There are bibasilar infiltrates/atelectasis . There is central vascular prominence. There has been resolution of the previously seen mild pulmonary edema. Cardiomediastinal silhouette: The patient is status post median sternotomy. A retrosternal air-fluid level cannot be excluded. A follow-up exam is recommended. Bones and soft tissues: Unremarkable. IMPRESSION: Postsurgical changes as described above with persistent bilateral pleural effusions Steel Wheel Engraver: JABARI Transcribe Date/Time: Mar 03 2021 9:04A Dictated by : ZENY MORAN MD This examination was interpreted and the report reviewed and electronically signed by: ZENY MORAN MD on Mar 03 2021 9:06AM EST [id number] Normal [facility] ALLIED HEALTHon 03-02-2021 ALLIED HEALTH HNO ID: [id number] Author: RT Riya(R) Service: Radiology Author Type: Technologist Type: Allied Health Filed: 03/02/2021 4:54 AM Note Text: Radiology Service Progress Note PATIENT NAME: Kulwant Andrade DATE OF SERVICE: March 02, 2021 TIME: 4:54 AM PATIENT IDENTITY VERIFICATION COMPLETED USING TWO (2) IDENTIFIERS: Name and Date of confirmed by patient verbally and Name and Date of confirmed by identification band. FALL SCREENING: Has the patient had 2 falls in the last year or 1 fall with injury or currently using an Ambulatory Assistive Device (Walker, Cane, Wheelchair, Crutches, etc.)? Inpatient: Screened on floor PATIENT GENDER DATA: Male PATIENT RELEVANT IMPLANT DATA REVIEWED: Not Applicable RADIOLOGY DEPARTMENT: General X-ray: Exam(s) Completed: Chest X-Ray PERIPHERAL IV DATA: n/a SIGNED BY: RT Riya(R) March 02, 2021 4:54 AM Normal [facility] Basic metabolic 2000 panelon 03-02-2021 Anion gap [Moles/Vol] 10 mmol/L Normal 9-18 [facility] Comment on above: Order Comment: Speci men Type: BLOOD SPECIMEN Performed By: #### 2 4321-2 ####[facility] LABORATORYCLIA [id number] [address] [facility] Calcium [Mass/Vol] 7.7 mg/dL Low 8.5-10.2 [facility] Comment on above: Order Comment: Speci men Type: BLOOD SPECIMEN Performed By: #### 2 4321-2 ####[facility] LABORATORYCLIA [id number] [address] [facility] Chloride [Moles/Vol] 107 mmol/L High 97-105 [facility] Comment on above: Order Comment: Speci men Type: BLOOD SPECIMEN Performed By: #### 2 4321-2 ####[facility] LABORATORYCLIA [id number] [address] [place] CO2 [Moles/Vol] 22 mmol/L Normal 22-30 [facility] Comment on above: Order Comment: Speci men Type: BLOOD SPECIMEN Performed By: #### 2 4321-2 ####[facility] LABORATORYCLIA [id number] [address] [facility] Creatinine [Mass/Vol] 0.96 mg/dL Normal 0.73-1.22 [facility] Comment on above: Order Comment: Speci men Type: BLOOD SPECIMEN Performed By: #### 2 4321-2 ####[facility] LABORATORYCLIA [id number] [place] [address] [place] GFR/1.73 sq M.predicted MDRD (S/P/Bld) [Vol rate/Area] mL/min/{1.73_m2} Normal [facility] Comment on above: Order Comment: Speci men Type: BLOOD SPECIMEN Result Comment: >60 eGFR (Estimated GFR) Units of measure: mL/min/1.73 meters squared eGFR is derived from the reexpressed MDRD Study equation using the following parameters: serum creatinine, age, gender and race. The creatinine assay has been calibrated to be traceable to IDMS. An eGFR <60 mL/min/1.73m2 for >3 months is consistent with chronic kidney disease. Refer to KDOQI guidelines for clinical interpretation. In patients with unstable renal function, e.g. those with acute kidney injury, the eGFR may not accurately reflect actual GFR. Performed By: #### 2 4321-2 ####[facility] LABORATORYCLIA [id number] [place] [id number] [place] Glucose [Mass/Vol] 92 mg/dL Normal 74-99 [facility] Comment on above: Order Comment: Speci men Type: BLOOD SPECIMEN Result Comment: The [place] [employer] (ADA) provides guidance for cutoff values for fasting glucose and random glucose. The ADA defines fasting as no caloric intake for at least 8 hours. Fasting plasma glucose results between 100 to 125 mg/dL indicate increased risk for diabetes (prediabetes). Fasting plasma glucose results greater than or equal to 126 mg/dL meet the criteria for diagnosis of diabetes. In the absence of unequivocal hyperglycemia, results should be confirmed by repeat testing. In a patient with classic symptoms of hyperglycemia or hyperglycemic crisis, random plasma glucose results greater than or equal to 200 mg/dL meet the criteria for diagnosis of diabetes. Reference: Standards of Medical Care in Diabetes 2016, [place] [employer]. Diabetes Care. 2016.39(Suppl 1). Performed By: #### 2 4321-2 ####[facility] LABORATORYCLIA [id number] [place] [address] [place] Potassium [Moles/Vol] 3.7 mmol/L Normal 3.7-5.1 [facility] Comment on above: Order Comment: Speci men Type: BLOOD SPECIMEN Performed By: #### 2 4321-2 ####[facility] LABORATORYCLIA [id number] [address] Sodium [Moles/Vol] 139 mmol/L Normal 136-144 [facility] Comment on above: Order Comment: Speci men Type: BLOOD SPECIMEN Performed By: #### 2 4321-2 ####[facility] LABORATORYCLIA [id number] [address] Urea nitrogen [Mass/Vol] 22 mg/dL Normal 9-24 [facility] Comment on above: Order Comment: Speci men Type: BLOOD SPECIMEN Performed By: #### 2 4321-2 ####[facility] LABORATORYCLIA [id number] [address] CBC panel Auto (Bld)on 03-02 Erythrocyte distribution width (RBC) [Ratio] 13.1 % Normal 11.5-15.0 [facility] Comment on above: Order Comment: Speci men Type: BLOOD SPECIMEN Performed By: #### 5 8410-2 ####[facility] LABORATORYCLIA [id number] [address] Hematocrit (Bld) [Volume fraction] 20.2 % Low 39.0-51.0 [facility] Comment on above: Order Comment: Speci men Type: BLOOD SPECIMEN Performed By: #### 5 8410-2 ####[facility] LABORATORYCLIA [id number] [address] Hemoglobin (Bld) [Mass/Vol] 6.4 g/dL Low 13.0-17.0 [facility] Comment on above: Order Comment: Speci men Type: BLOOD SPECIMEN Performed By: #### 5 8410-2 ####[facility] LABORATORYCLIA [id number] [address] MCH (RBC) [Entitic mass] 31.8 pg Normal 26.0-34.0 [facility] Comment on above: Order Comment: Speci men Type: BLOOD SPECIMEN Performed By: #### 5 8410-2 ####[facility] LABORATORYCLIA [id number] [address] MCHC (RBC) [Mass/Vol] 31.7 g/dL Normal 30.5-36.0 [facility] Comment on above: Order Comment: Speci men Type: BLOOD SPECIMEN Performed By: #### 5 8410-2 ####[facility] LABORATORYCLIA [id number] [address] MCV (RBC) [Entitic vol] 100.5 fL High 80.0-100.0 [facility] Comment on above: Order Comment: Speci men Type: BLOOD SPECIMEN Performed By: #### 5 8410-2 ####[facility] LABORATORYCLIA [id number] [address] Nucleated RBC (Bld) [#/Vol] 0.03 10*3/uL High <0.01 [facility] Comment on above: Order Comment: Speci men Type: BLOOD SPECIMEN Performed By: #### 5 8410-2 ####[facility] LABORATORYCLIA [id number] [address] Platelet mean volume (Bld) [Entitic vol] 10.0 fL Normal 9.0-12.7 [facility] Comment on above: Order Comment: Speci men Type: BLOOD SPECIMEN Performed By: #### 5 8410-2 ####[facility] LABORATORYCLIA [id number] [address] Platelets (Bld) [#/Vol] 195 10*3/uL Normal 150-400 [facility] Comment on above: Order Comment: Speci men Type: BLOOD SPECIMEN Performed By: #### 5 8410-2 ####[facility] LABORATORYCLIA [id number] [address] RBC (Bld) [#/Vol] 2.01 10*6/uL Low 4.20-6.00 [facility] Comment on above: Order Comment: Speci men Type: BLOOD SPECIMEN Performed By: #### 5 8410-2 ####[facility] LABORATORYCLIA [id number] [address] WBC (Bld) [#/Vol] 6.48 10*3/uL Normal 3.70-11.00 [facility] Comment on above: Order Comment: Speci men Type: BLOOD SPECIMEN Performed By: #### 5 8410-2 ####[facility] LABORATORYCLIA [id number] [address] TYPE AND SCREENon 03-02-2021 ABO O Normal [facility] Comment on above: Order Comment: Speci men Type: BLOOD SPECIMEN Performed By: #### T SCR ####[facility] BANKCLIA [id number] [address] HISTORICAL AB SCR STATUS Negative Normal [facility] Comment on above: Order Comment: Speci men Type: BLOOD SPECIMEN Performed By: #### T SCR ####[facility] BLO[facility] BANKCLIA [id number] [address] Rh Nom (Bld) Positive Normal [facility] Comment on above: Order Comment: Speci men Type: BLOOD SPECIMEN Performed By: #### T SCR ####[facility] BLOOD BANKCLIA [id number] [address] TYPE AND SCREEN EXPIRATION 03/05/2021 23:59 Normal [facility] Comment on above: Order Comment: Speci men Type: BLOOD SPECIMEN Performed By: #### T SCR ####[facility] BLO[facility] BANKCLIA [id number] [address] XR CHEST 1V FRONTALon 2020 XR CHEST 1V FRONTAL * * *Final Report* * * DATE OF EXAM: Mar 02 2021 5:15AM AKX 5290 - XR CHEST 1V FRONTAL / PROCEDURE REASON: Post-operative / post-procedure assessment, asymptomatic * * * * Physician Interpretation * * * * EXAM TITLE: AP/PA CHEST X RAY COMPARISON: 03/01/21 CLINICAL HISTORY: Post-operative / post-procedure assessment, asymptomatic ENCOUNTER: Not applicable MQ: XC1_5 RESULT: Lines, tubes, and devices: Examination limited due to overlying EKG leads. Again noted is right internal jugular central venous catheter, essentially unchanged with tip overlying the inferior aspect of the SVC.. Lungs and pleura: Low lung volumes, likely related to poor inspiratory result. Again demonstrated are mixed interstitial and airspace opacities involving the right mid and bilateral lower lung zones, essentially unchanged, compared to previous examination. Likely small right pleural effusion, unchanged. No discrete left-sided effusion or pneumothorax. Cardiomediastinal silhouette: Enlarged cardiac silhouette, essentially unchanged. Status post median sternotomy, hardware appears to be intact. Other: Osseous structures and soft tissues grossly intact. IMPRESSION: No significant interval change regarding right internal jugular central venous catheter or airspace opacities involving lungs bilaterally. Likely small right-sided effusion, essentially unchanged. 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 Transcribe Date/Time: Mar 02 2021 7:34A Dictated by : MELVINA MARCIAL MD This examination was interpreted and the report reviewed and electronically signed by: MELVINA MARCIAL MD on Mar 02 2021 7:37AM EST [id number] Normal [facility] ALLIED HEALTHon 03-01-2021 ALLIED HEALTH HNO ID: [id number] Author: RT Marimar(R) Service: Radiology Author Type: Technologist Type: Allied Health Filed: 03/01/2021 8:09 AM Note Text: Radiology Service Progress Note PATIENT NAME: Kulwant Andrade DATE OF SERVICE: March 01, 2021 TIME: 8:09 AM PATIENT IDENTITY VERIFICATION COMPLETED USING TWO (2) IDENTIFIERS: Name and Date of confirmed by patient verbally and Name and Date of confirmed by identification band. FALL SCREENING: Has the patient had 2 falls in the last year or 1 fall with injury or currently using an Ambulatory Assistive Device (Walker, Cane, Wheelchair, Crutches, etc.)? Inpatient: Screened on floor PATIENT GENDER DATA: Male PATIENT RELEVANT IMPLANT DATA REVIEWED: Not Applicable RADIOLOGY DEPARTMENT: General X-ray: Exam(s) Completed: Chest X-Ray PERIPHERAL IV DATA: Not applicable SIGNED BY: RT Marimar(R) March 01, 2021 8:09 AM Normal [facility] Basic metabolic 2000 panelon 03-01-2021 Anion gap [Moles/Vol] 10 mmol/L Normal 9-18 [facility] Comment on above: Order Comment: Speci men Type: BLOOD SPECIMEN Performed By: #### T SCR #### [facility] CLIA [id number] [address] STATES OF [facility] Calcium [Mass/Vol] 7.6 mg/dL Low 8.5-10.2 [facility] Comment on above: Order Comment: Speci men Type: BLOOD SPECIMEN Performed By: #### T SCR #### [facility] CLIA [id number] [address] [place] OF [facility] Chloride [Moles/Vol] 110 mmol/L High 97-105 [facility] Comment on above: Order Comment: Speci men Type: BLOOD SPECIMEN Performed By: #### T SCR #### [facility] CLIA [id number] [address] STATES OF [place] CO2 [Moles/Vol] 18 mmol/L Low 22-30 [facility] Comment on above: Order Comment: Speci men Type: BLOOD SPECIMEN Performed By: #### T SCR #### [facility] CLIA [id number] [address] [place] Creatinine [Mass/Vol] 0.90 mg/dL Normal 0.73-1.22 [facility] Comment on above: Order Comment: Speci men Type: BLOOD SPECIMEN Performed By: #### T SCR #### [facility] CLIA [id number] [address] [place] GFR/1.73 sq M.predicted MDRD (S/P/Bld) [Vol rate/Area] mL/min/{1.73_m2} Normal [facility] Comment on above: Order Comment: Speci men Type: BLOOD SPECIMEN Result Comment: >60 eGFR (Estimated GFR) Units of measure: mL/min/1.73 meters squared eGFR is derived from the reexpressed MDRD Study equation using the following parameters: serum creatinine, age, gender and race. The creatinine assay has been calibrated to be traceable to IDMS. An eGFR <60 mL/min/1.73m2 for >3 months is consistent with chronic kidney disease. Refer to KDOQI guidelines for clinical interpretation. In patients with unstable renal function, e.g. those with acute kidney injury, the eGFR may not accurately reflect actual GFR. Performed By: #### T SCR #### [facility] CLIA [id number] 1 [place] [address] [place] Glucose [Mass/Vol] 110 mg/dL High 74-99 [facility] Comment on above: Order Comment: Speci men Type: BLOOD SPECIMEN Result Comment: The [place] Diabetes [employer] (ADA) provides guidance for cutoff values for fasting glucose and random glucose. The ADA defines fasting as no caloric intake for at least 8 hours. Fasting plasma glucose results between 100 to 125 mg/dL indicate increased risk for diabetes (prediabetes). Fasting plasma glucose results greater than or equal to 126 mg/dL meet the criteria for diagnosis of diabetes. In the absence of unequivocal hyperglycemia, results should be confirmed by repeat testing. In a patient with classic symptoms of hyperglycemia or hyperglycemic crisis, random plasma glucose results greater than or equal to 200 mg/dL meet the criteria for diagnosis of diabetes. Reference: Standards of Medical Care in Diabetes 2016, [place] [employer]. Diabetes Care. 2016.39(Suppl 1). Performed By: #### T SCR #### [facility] CLIA [id number] [address] [place] Potassium [Moles/Vol] 4.0 mmol/L Normal 3.7-5.1 [facility] Comment on above: Order Comment: Speci men Type: BLOOD SPECIMEN Performed By: #### T SCR #### [facility] CLIA [id number] 1 [place] [address] [place] Sodium [Moles/Vol] 138 mmol/L Normal 136-144 [facility] Comment on above: Order Comment: Speci men Type: BLOOD SPECIMEN Performed By: #### T SCR #### [facility] CLIA [id number] [address] Urea nitrogen [Mass/Vol] 22 mg/dL Normal 9-24 [facility] Comment on above: Order Comment: Speci men Type: BLOOD SPECIMEN Performed By: #### T SCR #### [facility] CLIA [id number] [address] CASE MANAGEMon 03-01-2021 CASE MANAGEM HNO ID: [id number] Author: Irais Weber RN Service: ? Author Type: Registered Nurse Type: Care Mgt Progress Note Filed: 03/01/2021 1:17 PM Note Text: CARE MANAGEMENT PROGRESS NOTE SERVICE DATE: 03/01/2021 SERVICE TIME: 1:13 PM LOS: 6 days Needs Prior to Discharge: To Be Determined;Discharge Prescriptions;OT/PT Evaluation;Precertifica tion;Discharge Transportation Spoke with pt's dtr Luna re acute rehab at [facility]. They are stating inappropriate LOC at this time. Are willing to consider him for the SNF unit. Will need updated PT/OT evals on Thursday for their recommendation - SNF vs acute rehab. Dtr states she will not be able to take off work next week to be with her dad and her sister is in [place]. Dsich Plan: TBD: SNF vs acute rehab. SIGNATURE: Irais Weber RN PATIENT NAME: Kulwant Andrade DATE: March 01, 2021 TIME: 1:13 PM PAGER/CONTACT #: [phone] Normal [facility] CBC panel Auto (Bld)on 03-01 Erythrocyte distribution width (RBC) [Ratio] 13.1 % Normal 11.5-15.0 [facility] Comment on above: Order Comment: Speci men Type: BLOOD SPECIMEN Performed By: #### 5 8410-2 ####[facility] [id number] [address] Hematocrit (Bld) [Volume fraction] 21.8 % Low 39.0-51.0 [facility] Comment on above: Order Comment: Speci men Type: BLOOD SPECIMEN Performed By: #### 5 8410-2 ####[facility] [id number] [address] Hemoglobin (Bld) [Mass/Vol] 7.0 g/dL Low 13.0-17.0 [facility] Comment on above: Order Comment: Speci men Type: BLOOD SPECIMEN Performed By: #### 5 8410-2 ####[facility] [id number] [address] MCH (RBC) [Entitic mass] 31.7 pg Normal 26.0-34.0 [facility] Comment on above: Order Comment: Speci men Type: BLOOD SPECIMEN Performed By: #### 5 8410-2 ####[facility] [id number] [address] MCHC (RBC) [Mass/Vol] 32.1 g/dL Normal 30.5-36.0 [facility] Comment on above: Order Comment: Speci men Type: BLOOD SPECIMEN Performed By: #### 5 8410-2 ####[facility] [id number] [address] MCV (RBC) [Entitic vol] 98.6 fL Normal 80.0-100.0 [facility] Comment on above: Order Comment: Speci men Type: BLOOD SPECIMEN Performed By: #### 5 8410-2 ####[facility] [id number] [address] Nucleated RBC (Bld) [#/Vol] 10*3/uL Normal <0.01 [facility] Comment on above: Order Comment: Speci men Type: BLOOD SPECIMEN Performed By: #### 5 8410-2 ####[facility] [id number] [address] Platelet mean volume (Bld) [Entitic vol] 10.2 fL Normal 9.0-12.7 [facility] Comment on above: Order Comment: Speci men Type: BLOOD SPECIMEN Performed By: #### 5 8410-2 ####[facility] [id number] [address] Platelets (Bld) [#/Vol] 207 10*3/uL Normal 150-400 [facility] Comment on above: Order Comment: Speci men Type: BLOOD SPECIMEN Performed By: #### 5 8410-2 ####[facility] [id number] [address] RBC (Bld) [#/Vol] 2.21 10*6/uL Low 4.20-6.00 [facility] Comment on above: Order Comment: Speci men Type: BLOOD SPECIMEN Performed By: #### 5 8410-2 ####[facility] [id number] [address] WBC (Bld) [#/Vol] 8.25 10*3/uL Normal 3.70-11.00 [facility] Comment on above: Order Comment: Speci men Type: BLOOD SPECIMEN Performed By: #### 5 8410-2 ####[facility] [id number] [address] XR CHEST 1V FRONTALon 2020 XR CHEST 1V FRONTAL * * *Final Report* * * DATE OF EXAM: Mar 01 2021 8:23AM AKX 5290 - XR CHEST 1V FRONTAL / PROCEDURE REASON: Post-operative / post-procedure assessment, asymptomatic * * * * Physician Interpretation * * * * EXAMINATION: CHEST RADIOGRAPH (SINGLE VIEW AP OR PA) CLINICAL HISTORY: Post-operative / post-procedure assessment, asymptomatic MQ: XC1_5 Comparison: 02/28/2021 RESULT: Lines, tubes, and devices: Right central venous catheter is unchanged. Stable left thoracostomy tube. Lungs and pleura: There are stable small bilateral pleural effusions. Atelectasis is present at the lung bases. This is also stable. Cardiomediastinal silhouette: Stable cardiomediastinal silhouette. Other: . IMPRESSION: Stable appearance of the chest. Steel Wheel Engraver: JABARI Transcribe Date/Time: Mar 01 2021 9:22A Dictated by : ANMOL YAP MD This examination was interpreted and the report reviewed and electronically signed by: ANMOL YAP MD on Mar 01 2021 9:23AM EST [id number] Normal [facility] Basic metabolic 2000 panelon 02-28-2021 Anion gap [Moles/Vol] 7 mmol/L Low 9-18 [facility] Comment on above: Order Comment: Speci men Type: BLOOD SPECIMEN Performed By: #### 2 4320-2, ####[facility] [id number] [address] STATES OF [facility] Calcium [Mass/Vol] 7.3 mg/dL Low 8.5-10.2 [facility] Comment on above: Order Comment: Speci men Type: BLOOD SPECIMEN Performed By: #### 2 4320-2, ####[facility]IA [id number] [place] [address] [place] Chloride [Moles/Vol] 113 mmol/L High 97-105 [facility] Comment on above: Order Comment: Speci men Type: BLOOD SPECIMEN Performed By: #### 2 4320-2, ####[facility]ORY[facility]IA [id number] [place] [address] [place] CO2 [Moles/Vol] 19 mmol/L Low 22-30 [facility] Comment on above: Order Comment: Speci men Type: BLOOD SPECIMEN Performed By: #### 2 4320-2, ####[facility]ORY[facility]IA [id number] [place] [address] [place] Creatinine [Mass/Vol] 1.09 mg/dL Normal 0.73-1.22 [facility] Comment on above: Order Comment: Speci men Type: BLOOD SPECIMEN Performed By: #### 2 4320-2, ####[facility]ORYCLIA [id number] [place] [address] [place] GFR/1.73 sq M.predicted MDRD (S/P/Bld) [Vol rate/Area] mL/min/{1.73_m2} Normal [facility] Comment on above: Order Comment: Speci men Type: BLOOD SPECIMEN Result Comment: >60 eGFR (Estimated GFR) Units of measure: mL/min/1.73 meters squared eGFR is derived from the reexpressed MDRD Study equation using the following parameters: serum creatinine, age, gender and race. The creatinine assay has been calibrated to be traceable to IDNY. An eGFR <60 mL/min/1.73m2 for >3 months is consistent with chronic kidney disease. Refer to KDOQI guidelines for clinical interpretation. In patients with unstable renal function, e.g. those with acute kidney injury, the eGFR may not accurately reflect actual GFR. Performed By: #### 2 4321-2, 72911-1 ####[facility] [id number] [place] [id number] [place] Glucose [Mass/Vol] 143 mg/dL High 74-99 [facility] Comment on above: Order Comment: Speci men Type: BLOOD SPECIMEN Result Comment: The [place] Diabetes [employer] (ADA) provides guidance for cutoff values for fasting glucose and random glucose. The ADA defines fasting as no caloric intake for at least 8 hours. Fasting plasma glucose results between 100 to 125 mg/dL indicate increased risk for diabetes (prediabetes). Fasting plasma glucose results greater than or equal to 126 mg/dL meet the criteria for diagnosis of diabetes. In the absence of unequivocal hyperglycemia, results should be confirmed by repeat testing. In a patient with classic symptoms of hyperglycemia or hyperglycemic crisis, random plasma glucose results greater than or equal to 200 mg/dL meet the criteria for diagnosis of diabetes. Reference: Standards of Medical Care in Diabetes 2016, [place] [employer]. Diabetes Care. 2016.39(Suppl 1). Performed By: #### 2 4321-2, 86145-6 ####[facility]ORYCLIA [id number] [place] [address] [place] Potassium [Moles/Vol] 4.7 mmol/L Normal 3.7-5.1 [facility] Comment on above: Order Comment: Speci men Type: BLOOD SPECIMEN Performed By: #### 2 4321-2, ####[facility]ORYCLIA [id number] [place] [address] [facility] Sodium [Moles/Vol] 139 mmol/L Normal 136-144 [facility] Comment on above: Order Comment: Speci men Type: BLOOD SPECIMEN Performed By: #### 2 4321-2, ####[facility]ORYCLIA [id number] [place] [address] [facility] Urea nitrogen [Mass/Vol] 23 mg/dL Normal 9-24 [facility] Comment on above: Order Comment: Speci men Type: BLOOD SPECIMEN Performed By: #### 2 4321-2, ####[facility]ORATORYCLIA [id number] [place] [id number] [facility] CASE MANAGEMon 02-28-2021 CASE MANAGEM HNO ID: [id number] Author: Irais Weber RN Service: ? Author Type: Registered Nurse Type: Care Mgt Progress Note Filed: 02/28/2021 3:14 PM Note Text: CARE MANAGEMENT PROGRESS NOTE SERVICE DATE: 02/28/2021 SERVICE TIME: 3:10 PM LOS: 5 days Needs Prior to Discharge: Facility or Agency Choices;Accepting Facility;OT/PT Evaluation;Precertifica tion;Discharge Prescriptions;Discharge Transportation Met with pt and his dtr Luna per their request. Pt will not have anyone to stay with him at [facility]. He would like to be set up for acute rehab at [facility]. Explained will need authorization from [employer], repeat PT/OT evals. Referral sent to [facility] acute rehab. SIGNATURE: Irais Weber RN PATIENT NAME: Kulwant Andrade DATE: February 28, 2021 TIME: 3:10 PM PAGER/CONTACT #: [phone] Normal [facility] CBC panel Auto (Bld)on 02-28 Erythrocyte distribution width (RBC) [Ratio] 12.8 % Normal 11.5-15.0 [facility] Comment on above: Order Comment: Speci men Type: BLOOD SPECIMEN Performed By: #### 5 8410-2 ####[facility]ORYCLIA [id number] [address] Hematocrit (Bld) [Volume fraction] 22.3 % Low 39.0-51.0 [facility] Comment on above: Order Comment: Speci men Type: BLOOD SPECIMEN Performed By: #### 5 8410-2 ####[facility]ORYCLIA [id number] [address] Hemoglobin (Bld) [Mass/Vol] 7.0 g/dL Low 13.0-17.0 [facility] Comment on above: Order Comment: Speci men Type: BLOOD SPECIMEN Performed By: #### 5 8410-2 ####[facility]ORYCLIA [id number] [address] MCH (RBC) [Entitic mass] 32.1 pg Normal 26.0-34.0 [facility] Comment on above: Order Comment: Speci men Type: BLOOD SPECIMEN Performed By: #### 5 8410-2 ####[facility]ORYCLIA [id number] [address] MCHC (RBC) [Mass/Vol] 31.4 g/dL Normal 30.5-36.0 [facility] Comment on above: Order Comment: Speci men Type: BLOOD SPECIMEN Performed By: #### 5 8410-2 ####[facility]ORYCLIA [id number] [address] MCV (RBC) [Entitic vol] 102.3 fL High 80.0-100.0 [facility] Comment on above: Order Comment: Speci men Type: BLOOD SPECIMEN Performed By: #### 5 8410-2 ####[facility]ORYCLIA [id number] [address] Nucleated RBC (Bld) [#/Vol] 10*3/uL Normal <0.01 [facility] Comment on above: Order Comment: Speci men Type: BLOOD SPECIMEN Performed By: #### 5 8410-2 ####[facility]ORYCLIA [id number] [address] Platelet mean volume (Bld) [Entitic vol] 10.3 fL Normal 9.0-12.7 [facility] Comment on above: Order Comment: Speci men Type: BLOOD SPECIMEN Performed By: #### 5 8410-2 ####[facility]ORYCLIA [id number] [address] Platelets (Bld) [#/Vol] 165 10*3/uL Normal 150-400 [facility] Comment on above: Order Comment: Speci men Type: BLOOD SPECIMEN Performed By: #### 5 8410-2 ####[facility]ORYCLIA [id number] [address] RBC (Bld) [#/Vol] 2.18 10*6/uL Low 4.20-6.00 [facility] Comment on above: Order Comment: Speci men Type: BLOOD SPECIMEN Performed By: #### 5 8410-2 ####[facility]ORYCLIA [id number] [address] WBC (Bld) [#/Vol] 9.42 10*3/uL Normal 3.70-11.00 [facility] Comment on above: Order Comment: Speci men Type: BLOOD SPECIMEN Performed By: #### 5 8410-2 ####[facility]ORYCLIA [id number] [address] Magnesium SerPl-mCncon 02-28 Magnesium [Mass/Vol] 2.0 mg/dL Normal 1.7-2.3 [facility] Comment on above: Order Comment: Speci men Type: BLOOD SPECIMEN Performed By: #### 2 4321-2, 68016-8 ####[facility]ORYCLIA [id number] [address] [place] PT EDon 02-28-2021 PT ED HNO ID: [id number] Author: Emani Sheehan RD Service: Nutrition Therapy Author Type: Registered Dietitian Type: Patient Education Filed: 02/28/2021 3:31 PM Note Text: NUTRITION THERAPY PATIENT EDUCATION SERVICE DATE: 02/28/2021 SERVICE TIME: 151 TOPIC: Diet: heart healthy LEARNING ASSESSMENT Individuals Assessed: Patient and Family Preferred Learning Method: : Individual Instruction, Verbal Instruction and Written Instruction Barriers to Learning: : None Evident LEARNING RESPONSE Instruction Provided to: Patient and family member Patient / Family Response: Verbalizes Understanding and Recommend Cont. Instruction Method of Instruction: Group class instruction Written instruction - handouts Verbal instruction Material(s) Provided to Patient: CC Mediterranean Diet Follow-Up Plan: Reinforce - Repeat previous content Referral (Recommendation): Cardiac rehab MNT Billing: Re-assess/15 min 1 unit SIGNATURE: Emani Sheehan RD PATIENT NAME: Kulwant Andrade DATE: February 28, 2021 TIME: 3:30 PM PAGER: [phone] Normal [facility] XR CHEST 1V FRONTALon 2020 XR CHEST 1V FRONTAL * * *Final Report* * * DATE OF EXAM: Feb 28 2021 6:19AM AKX 5290 - XR CHEST 1V FRONTAL / PROCEDURE REASON: Post-operative / post-procedure assessment, asymptomatic * * * * Physician Interpretation * * * * EXAMINATION: CHEST RADIOGRAPH (SINGLE VIEW AP OR PA) CLINICAL HISTORY: Post-operative / post-procedure assessment, asymptomatic MQ: XC1_5 Comparison: 02/27/2021 at 05 17 RESULT: Lines, tubes, and devices: Right internal jugular central line with tip in the distal superior vena cava. Stable positioning left-sided chest tube. Mediastinal drain is not as clearly seen on present study. Lungs and pleura: Small lung volumes with presumed atelectasis at both lung bases. Aeration in the lungs has decreased since prior exam. Cardiomediastinal silhouette: Heart size difficult to assess given the small lung volumes. Other: Gaseous distention of the stomach. IMPRESSION: Small bilateral lung volumes with worsening aeration at the lung bases most consistent with atelectasis. Steel Wheel Engraver: JABARI Transcribe Date/Time: Feb 28 2021 6:53A Dictated by : ISABEL MAK MD This examination was interpreted and the report reviewed and electronically signed by: ISABEL MAK MD on Feb 28 2021 6:54AM EST [id number] Normal [facility] ALLIED HEALTHon 02-27-2021 ALLIED HEALTH HNO ID: [id number] Author: RT Bela(R) Service: Radiology Author Type: Technologist Type: Allied Health Filed: 02/27/2021 5:40 AM Note Text: Radiology Service Progress Note PATIENT NAME: Kulwant Andrade DATE OF SERVICE: February 27, 2021 TIME: 5:40 AM PATIENT IDENTITY VERIFICATION COMPLETED USING TWO (2) IDENTIFIERS: Name and Date of confirmed by patient verbally and Name and Date of confirmed by identification band. FALL SCREENING: Has the patient had 2 falls in the last year or 1 fall with injury or currently using an Ambulatory Assistive Device (Walker, Cane, Wheelchair, Crutches, etc.)? Inpatient: Screened on floor PATIENT GENDER DATA: Male PATIENT RELEVANT IMPLANT DATA REVIEWED: Not Applicable RADIOLOGY DEPARTMENT: General X-ray: Exam(s) Completed: Chest X-Ray PERIPHERAL IV DATA: Not applicable SIGNED BY: RT Bela(R) February 27, 2021 5:40 AM Normal [facility] ANES POSTPROC EVALon 021 ANES POSTPROC EVAL HNO ID: [id number] Author: Rodrigo Rubin DO Service: Anesthesiology Author Type: Physician Type: Anesthesia Postprocedure Evaluation Filed: 02/27/2021 7:21 AM Note Text: POST ANESTHESIA EVALUATION NOTE : 1940 Procedure Summary Date: 02/26/21 Room / Location: [place] OR 05 / [place] OR Anesthesia Start: 943 Anesthesia Stop: 1426 Procedure: BYPASS GRAFT ARTERY CORONARY ON-PUMP THREE CORONARY ARTERIAL GRAFTS (N/A Chest) 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 Post Anesthesia Patient Status Anticipated Disposition: ICU planned admission. Neurological Status: aware and responsive. Pulmonary Status: breathing comfortably on supplemental oxygen Airway Control: returned to baseline unsupported. Cardiovascular Status: unstable. medication administered: vasopressors Pain Management: clinically adequate Postoperative Hydration: acceptable. Intraoperative Events: no significant anesthesia events Recommendation: further care per PACU/ICU/floor team. Anesthesia Observations No Documentation SIGNATURE: Rodrigo Rubin DO PATIENT NAME: Kulwant Andrade DATE: February 27, 2021 TIME: 7:18 AM CSN: [id number] Normal [facility] Basic metabolic 2000 panelon 02-27-2021 Anion gap [Moles/Vol] 7 mmol/L Low 9-18 [facility] Comment on above: Order Comment: Speci men Type: BLOOD SPECIMEN Performed By: #### 2 4320-07, ####[facility]ORYCLIA [id number] [place] [address] [place] Calcium [Mass/Vol] 7.9 mg/dL Low 8.5-10.2 [facility] Comment on above: Order Comment: Speci men Type: BLOOD SPECIMEN Performed By: #### 2 4320-07, ####[facility]ORYCLIA [id number] [place] [address] [place] Chloride [Moles/Vol] 112 mmol/L High 97-105 [facility] Comment on above: Order Comment: Speci men Type: BLOOD SPECIMEN Performed By: #### 2 2, ####[facility]ORYCLIA [id number] [place] [address] [place] CO2 [Moles/Vol] 21 mmol/L Low 22-30 [facility] Comment on above: Order Comment: Speci men Type: BLOOD SPECIMEN Performed By: #### 2 4320-07, ####[facility]ORYCLIA [id number] [place] [address] [place] Creatinine [Mass/Vol] 1.04 mg/dL Normal 0.73-1.22 [facility] Comment on above: Order Comment: Speci men Type: BLOOD SPECIMEN Performed By: #### 2 4321-2, 45291-4 ####[facility]ORYCLIA [id number] [place] [address] [place] GFR/1.73 sq M.predicted MDRD (S/P/Bld) [Vol rate/Area] mL/min/{1.73_m2} Normal [facility] Comment on above: Order Comment: Speci men Type: BLOOD SPECIMEN Result Comment: >60 eGFR (Estimated GFR) Units of measure: mL/min/1.73 meters squared eGFR is derived from the reexpressed MDRD Study equation using the following parameters: serum creatinine, age, gender and race. The creatinine assay has been calibrated to be traceable to IDMS. An eGFR <60 mL/min/1.73m2 for >3 months is consistent with chronic kidney disease. Refer to KDOQI guidelines for clinical interpretation. In patients with unstable renal function, e.g. those with acute kidney injury, the eGFR may not accurately reflect actual GFR. Performed By: #### 2 4321-2, 32370-0 ####[facility]ORYCLIA [id number] [place] [address] [place] Glucose [Mass/Vol] 90 mg/dL Normal 74-99 [facility] Comment on above: Order Comment: Speci men Type: BLOOD SPECIMEN Result Comment: The [place] Diabetes [employer] (ADA) provides guidance for cutoff values for fasting glucose and random glucose. The ADA defines fasting as no caloric intake for at least 8 hours. Fasting plasma glucose results between 100 to 125 mg/dL indicate increased risk for diabetes (prediabetes). Fasting plasma glucose results greater than or equal to 126 mg/dL meet the criteria for diagnosis of diabetes. In the absence of unequivocal hyperglycemia, results should be confirmed by repeat testing. In a patient with classic symptoms of hyperglycemia or hyperglycemic crisis, random plasma glucose results greater than or equal to 200 mg/dL meet the criteria for diagnosis of diabetes. Reference: Standards of Medical Care in Diabetes 2016, [place] [employer]. Diabetes Care. 2016.39(Suppl 1). Performed By: #### 2 4321-2, ####[facility]ORYCLIA [id number] [address] Potassium [Moles/Vol] 5.1 mmol/L Normal 3.7-5.1 [facility] Comment on above: Order Comment: Speci men Type: BLOOD SPECIMEN Performed By: #### 2 4321-2, ####[facility]ORYCLIA [id number] [place], [place] [id number] [place] [address] Sodium [Moles/Vol] 140 mmol/L Normal 136-144 [facility] Comment on above: Order Comment: Speci men Type: BLOOD SPECIMEN Performed By: #### 2 432-2, ####[facility]IA [id number] [address] Urea nitrogen [Mass/Vol] 21 mg/dL Normal 9-24 [facility] Comment on above: Order Comment: Speci men Type: BLOOD SPECIMEN Performed By: #### 2 432-2, ####[facility]ORYCLIA [id number] [address] CASE MANAGEMon 02-27-2021 CASE MANAGEM HNO ID: [id number] Author: Irais Weber RN Service: ? Author Type: Registered Nurse Type: Care Mgt Progress Note Filed: 02/27/2021 11:02 AM Note Text: CARE MANAGEMENT PROGRESS NOTE SERVICE DATE: 02/27/2021 SERVICE TIME: 11:01 AM LOS: 4 days [place] of Choice Given: Yes Level of Care Discussed: Home Care Financial Disclosure Provided: Yes Financial Disclosure Comments: CC affilaite Provider List: Home Care Provider list within the patient's requested geographic area shared with the patient/family: No Quality and resource use metrics shared with the patient that are relevant to the patient's goals of care and treatment preferences:: Yes Metrics: Potentially Preventable 30-day Post Discharge Readmission Rates Needs Prior to Discharge: Home Care Order;Discharge Prescriptions Met with pt and his dtr to discuss post CABG disch needs. Pt states he will work on finding someone to stay with him at [facility]. He is agreeable to [facility] and prefers [facility] - referral created. SIGNATURE: Irais Weber RN PATIENT NAME: Kulwant Andrade DATE: February 27, 2021 TIME: 11:01 AM PAGER/CONTACT #: [phone] Normal [facility] CBC panel Auto (Bld)on 02-27 Erythrocyte distribution width (RBC) [Ratio] 12.5 % Normal 11.5-15.0 [facility] Comment on above: Order Comment: Speci men Type: BLOOD SPECIMEN Performed By: #### 5 8410-2 ####[facility]ORYCLIA [id number] [address] Hematocrit (Bld) [Volume fraction] 26.7 % Low 39.0-51.0 [facility] Comment on above: Order Comment: Speci men Type: BLOOD SPECIMEN Performed By: #### 5 8410-2 ####[facility]ATORYCLIA [id number] [address] OF [facility] Hemoglobin (Bld) [Mass/Vol] 8.5 g/dL Low 13.0-17.0 [facility] Comment on above: Order Comment: Speci men Type: BLOOD SPECIMEN Performed By: #### 5 8410-2 ####[facility]ORYCLIA [id number] [address] OF [facility] MCH (RBC) [Entitic mass] 31.0 pg Normal 26.0-34.0 [facility] Comment on above: Order Comment: Speci men Type: BLOOD SPECIMEN Performed By: #### 5 8410-2 ####[facility]ORYCLIA [id number] [address] OF [facility] MCHC (RBC) [Mass/Vol] 31.8 g/dL Normal 30.5-36.0 [facility] Comment on above: Order Comment: Speci men Type: BLOOD SPECIMEN Performed By: #### 5 8410-2 ####[facility]ORYCLIA [id number] [address] MCV (RBC) [Entitic vol] 97.4 fL Normal 80.0-100.0 [facility] Comment on above: Order Comment: Speci men Type: BLOOD SPECIMEN Performed By: #### 5 8410-2 ####[facility]ORYCLIA [id number] [address] Nucleated RBC (Bld) [#/Vol] 10*3/uL Normal <0.01 [facility] Comment on above: Order Comment: Speci men Type: BLOOD SPECIMEN Performed By: #### 5 8410-2 ####[facility]ORYCLIA [id number] [address] Platelet mean volume (Bld) [Entitic vol] 10.1 fL Normal 9.0-12.7 [facility] Comment on above: Order Comment: Speci men Type: BLOOD SPECIMEN Performed By: #### 5 8410-2 ####[facility]ATORYCLIA [id number] [address] Platelets (Bld) [#/Vol] 201 10*3/uL Normal 150-400 [facility] Comment on above: Order Comment: Speci men Type: BLOOD SPECIMEN Performed By: #### 5 8410-2 ####[facility]ORYCLIA [id number] [address] OF [facility] RBC (Bld) [#/Vol] 2.74 10*6/uL Low 4.20-6.00 [facility] Comment on above: Order Comment: Speci men Type: BLOOD SPECIMEN Performed By: #### 5 8410-2 ####[facility]ORYCLIA [id number] [address] WBC (Bld) [#/Vol] 10.26 10*3/uL Normal 3.70-11.00 [facility] Comment on above: Order Comment: Speci men Type: BLOOD SPECIMEN Performed By: #### 5 8410-2 ####[facility]ORYCLIA [id number] [place] [address] [place] Magnesium SerPl-mCncon 02-27 Magnesium [Mass/Vol] 1.8 mg/dL Normal 1.7-2.3 [facility] Comment on above: Order Comment: Speci men Type: BLOOD SPECIMEN Performed By: #### 2 4321-2, 81974-2 ####[facility]ATORYCLIA [id number] [place] [address] [facility] NUTRITIONon 02-27-2021 NUTRITION HNO ID: [id number] Author: Tsering Keyes RD Service: Nutrition Therapy Author Type: Registered Dietitian Type: Nutrition Filed: 02/27/2021 8:45 AM Note Text: NUTRITION THERAPY PROGRESS NOTE SERVICE DATE: 02/27/2021 SERVICE TIME: 8:37 Nutrition Assessment: Recommended Malnutrition Diagnosis: No Malnutrition Identified (02/25/21 1220 : Kiera Valdez RD) Estimated kilocalorie needs: 1199-1448 Calorie Calculation Method: 25-30 kcals/kg Estimated protein needs (grams): 89-112 Grams protein determined by: 1.2 - 1.5 g/kg Care Plan: Continue current diet Supplements: Ensure Max (BID x 5 days post-op per ERAS protocol) Received nutrition consult per ERAS protocol. Nutrition already following. Patient assessed 02/25 and started nutrition supplements pre-op. Now post-op CABG 02/26. Will reorder supplements and follow up as scheduled Monitor and Evaluation: Meet greater than 75% of estimated needs;Monitor fluid/electrolyte balance;Monitor labs, I/Os, vital signs, weight;Monitor bowel function Discharge Recommendations: Diet Diet: Heart Healthy diet Interval History: Patient s/p CABG 02/26. Extubated on 4L NC. Anthropometrics: Height: 182.9 cm (6') Weight: 82.8 kg (182 lb 8.7 oz) Dosing Weight: 74.3 kg (163 lb 12.8 oz) Usual Weight: 77.1 kg (170 lb) (with shoes) Body mass index is 24.76 kg/m?. Weight change percentage over time: Patient reports he lost 22 lbs beginning of this year d/t acute illness. Has put weight back on and stayed in his range. Does not like to go above 170 lbs. Intake History: Current Intake: Greater than 75% estimated energy needs Over: 4 days LOS. Recorded intakes 100%. Patient s/p CABG 02/26 Diet Orders (From admission, onward) Start Ordered 02/27/21 0830 DIET HEART HEALTHY START NOW Question: Heart Healthy Answer: 4 GM SODIUM (LOW SAT FAT) 02/27/21 0826 MNT Billing Type: Re-assess/15 min 1 unit SIGNATURE: Tsering Keyes RD PATIENT NAME: Kulwant Andrade DATE: February 27, 2021 TIME: 8:37 AM PAGER: [phone] Normal [facility] THERAPY NTon 02-27-2021 THERAPY NT HNO ID: [id number] Author: Tsering Lopez OTR/L Service: Occupational Therapy Author Type: Occupational Therapist Type: Therapy (PT/OT/Speech/Resp) Filed: 02/27/2021 3:06 PM Note Text: Occupational Therapy Evaluation SERVICE DATE: 02/27/2021 SERVICE TIME: 1422 to 1437 ROOM: [place] [address] Recommended Discharge Disposition: Subacute/SNF Recommended Discharge Disposition Comments: If pt declines SNF, rec home OT with 24 hr family assist/supervision to assist with ADLs/IADLs. Recommended Discharge Disposition Due to: Patient requires daily, facility-based rehabilitation from at least one discipline due to:;ADL impairment resulting in caregiver dependence;decline in functional status requiring daily skilled care OT 6 Clicks Score: 14 Barriers to discharge to home include: - Needing mod assist x2 for sit-stand transfers and assist for functional mobility - New decrease in endurance affecting their mobility at home - Change in ability to manage ADLs/IADLs - Change in functional strength from baseline - Lives alone and/or has no reliable assistance Strategies to reduce barriers include: - Patient should be up to the bathroom or bedside commode for toileting - Patient should be up to the chair 3x/day for meals - Limit external catheter usage while encouraging increased mobility to the bathroom - Limit time in bed - Encourage patient participation in their own ADLs as able while in the hospital. - Follow Therapy recommendations to nursing (found in nursing SBAR handoff) Sternal precautions handout given to patient. If pt goes home at d/c, will need further education follow-up re: safe ADL completion following sternal procedure. Precautions/Activity Restrictions: Fall Risk;Lines/Tubes/Drains ;Sternal Current Hospital Course: s/p CABG x3 02/26 Reason for Hospital Admission: SOB and AWAN Relevant Past Medical History: legionaire's PNA 09/19, CAD Response to Therapy Interventions: Good participation in activities, Multiple ongoing medical issues Continue skilled needs due to: Functional impairment Occupational Therapy Problem List: Impaired Self Care;Decreased Activity Tolerance;Functional Mobility Impairment;Balance Impaired Cognition/Communication Deficits Responsiveness: Alert Follows Commands: 2-step Commands Treatment Interventions: Self Care / Home Management;Education;Fu nctional Mobility Training;Strengthening Home Environment Patient Lives With: Self/Alone Assistance Available: multimedia services coordinator (dtr lives next door; SO is going to come over and assist at D/C) Entry To Home: Stairs Prior Functional Level: Within Functional Limits Prior Functional Level Comments: indep; has been having SOB lately but still indep Patient Report: Agreeable to session; no c/o pain; does report fatigue. States that his in 2014. CURRENT FUNCTIONAL STATUS: Most recent performance Current Activities of Daily Living Assist Level Additional Information Feeding Set Up Grooming Minimal Assistance Bathing Upper Body Moderate Assistance Bathing Lower Body Maximal Assistance Dressing Upper Body Moderate Assistance Dressing Lower Body Maximal Assistance Toileting Maximal Assistance Instrumental Activities of Daily Living Assist Level Additional Information Meal/Beverage Prep Cleaning Laundry Medication Management with Strategies Functional Mobility Assist Level Additional Information Rolling Supine to Sit Sit to Supine Scooting Sit to Stand Moderate Assistance (x2) Stand to Sit Moderate Assistance (x2) Bed to Chair Toilet/Commode Shower Functional Mobility Additional Information Unable to ambulate due to drop in BP Blank mcmahon indicate activity not attempted Range of Motion: WFL Strength: WFL (not formally tested due to sternal precautions) Balance: Dynamic Standing Dynamic Standing Balance: Fair Patient accepts minimal challenge, able to maintain balance while turning head/trunk Activity Tolerance: Standing Activity Standing Activity: static standing from chair Standing Activity Tolerance (in minutes): 2 Learning/Educational Needs: Discharge Plan;Disease Process;Functional Activities/Mobility;Pre cautions;Safety;Self Care Goals for Plan of Care: Patient /Caregiver Goals: Go Home Grooming with: Independent Upper Body Bathing with: Minimal Assistance Upper Body Dressing with: Minimal Assistance Lower Body Bathing with: Minimal Assistance Lower Body Dressing with: Minimal Assistance Toilet Hygiene with: Minimal Assistance Chair Transfer with: Minimal Assistance Toilet Transfer with: Minimal Assistance Tolerate (minutes of functional activity): 20 Functional Activity with: Minimal Assistance Demonstrate Competence With Education with: Independent (sternal precautions) Rehab Potential: Good Patient will be discontinued from Occupational Therapy when no further skilled needs are identified in this setting. PLAN: (more content not included)... Normal [facility] THERAPY NT HNO ID: [id number] Author: Mavis Flowers PT Service: Physical Therapy Author Type: Physical Therapist Type: Therapy (PT/OT/Speech/Resp) Filed: 02/27/2021 2:50 PM Note Text: Physical Therapy Evaluation SERVICE DATE: 02/27/2021 SERVICE TIME: 1320 to 1345 ROOM: [place] [address] Recommended Discharge Disposition: Subacute/SNF Recommended Discharge Disposition Due to: Patient requires daily, facility-based rehabilitation from at least one discipline due to:;ADL impairment resulting in caregiver dependence;decline in functional status requiring daily skilled care PT 6 Clicks Score: 9 Precautions/Activity Restrictions: Fall Risk;Lines/Tubes/Drains ;Sternal Current Hospital Course: s/p CABG x3 02/26 Reason for Hospital Admission: SOB and AWAN Relevant Past Medical History: legionaire's PNA 09/19, CAD Response to Therapy Interventions: Low activity tolerance Continue skilled needs due to: Functional mobility/skill impairments, Safety concerns Physical Therapy Problem List: Decreased Activity Tolerance;Functional Mobility Impairment;Balance Impaired Treatment Interventions: Education;Functional Mobility Training;Balance Training;Strengthening Home Environment Patient Lives With: Self/Alone Assistance Available: multimedia services coordinator (dtr lives next door; SO is going to come over and assist at D/C) Entry To Home: Stairs Prior Functional Level: Within Functional Limits Prior Functional Level Comments: indep; has been having SOB lately but still indep Patient Report: pleasant and agreeable to PT CURRENT FUNCTIONAL STATUS: Most recent performance Current Functional Mobility Assist Level Additional Information Rolling Supine to Sit Sit to Supine Scooting Sit to Stand Moderate Assistance (x2--unable to stand with max Ax1--but with someone on each side able to stand) Stand to Sit Moderate Assistance (x2--decreased eccentric control to lower to bed) Bed to Chair Toilet/Commode Gait Stairs Curb Step Car Transfer Range of Motion: WFL Strength: WFL Balance: Static Standing Static Standing Balance: Poor Patient requires handhold support and moderate to maximal assistance to maintain position Activity Tolerance: Standing Activity Standing Activity: static stand with mod A Standing Activity Tolerance (in minutes): 1.5 (x2 trials) JH-HLM: 5: Standing (1 or more minutes) Learning/Educational Needs: Discharge Plan;Family Education/Training;Func tional Activities/Mobility;[place] n of Care;Precautions;Safety Goals for Plan of Care: Patient /Caregiver Goals: Go Home Transfer supine to/from sit with: Minimal Assistance (within sternal precautions) Transfer sit to/from stand with: Contact Guard Assistance Ambulate with: Contact Guard Assistance Distance: 40x2 Device: Wheeled Walker Goal: sit to/from stand x5 reps SBA Rehab Potential: Fair Patient will be discontinued from Physical Therapy when no further skilled needs are identified in this setting. PLAN: PT Frequency: 3 times per week (1-3) Plan of Care developed with: Patient TREATMENT INTERVENTIONS: Therapy Diagnosis: Reduced mobility-other;Muscle Weakness (generalized);Unsteadin ess on feet;Abnormalities of gait and mobility-other Interventions Provided: Evaluation;Therapeutic Activity (46657) $ Evaluation-Moderate (89457) Billed Units: 1 unit Therapeutic Activity (91634) Treatment Minutes: 8 $ Therapeutic Activity (62597) Billed Units: 1 unit Educated pt and dtr on role of PT in acute care Facilitated transfers and standing balance and tolerance Educated on sternal precautions and how to follow with functional mobility Instruct in using pillow and momentum to stand--attempted to stand with max A x2 trials and unable to stand each time---with 2nd person to assist pt able to stand with mod Ax2 Training AND education provided in: Benefits of in-hospital mobility, Discharge planning, Falls prevention, Home safety, Role of Physical Therapy, Sitting balance, Standing balance, Transfers, Home set-up/modifications The following therapeutic skills were used: Activity dosing, Assessment of tolerance including vitals response to activity, Cues for sequencing/proper technique for activity, Physical assist, Movement facilitation Total Timed Code Treatment Minutes: 8 Total Treatment Time (minutes): 25 Please see discipline specific clinical documentation flowsheet for complete details for this therapy evaluation/treatment. SIGNATURE: Mavis Flowers PT PATIENT NAME: Kulwant Andrade DATE: February 27, 2021 TIME: 2:48 PM Normal [facility] XR CHEST 1V FRONTALon 2020 XR CHEST 1V FRONTAL * * *Final Report* * * DATE OF EXAM: Feb 27 2021 5:35AM AKX 5290 - XR CHEST 1V FRONTAL / PROCEDURE REASON: Post-operative / post-procedure assessment, asymptomatic * * * * Physician Interpretation * * * * EXAMINATION: CHEST RADIOGRAPH (SINGLE VIEW AP OR PA) CLINICAL HISTORY: Post-operative / post-procedure assessment, asymptomatic MQ: XC1_5 Comparison: 02/26/2021 at 1442 RESULT: Lines, tubes, and devices: Status post removal of the endotracheal tube and enteric tube. Right internal jugular central line with tip in the midsuperior vena cava. Mediastinal drain overlying the inferior aspect of the heart. Left-sided chest tube paralleling the left hemidiaphragm. Overlying patient monitor leads. Intact median sternotomy wires. Lungs and pleura: Patchy diminished aeration at both lung bases most likely atelectasis. Small lung volumes. No pneumothorax. Cardiomediastinal silhouette: Normal cardiomediastinal silhouette. Other: No significant additional findings. IMPRESSION: Status post extubation. Postextubation atelectasis at the lung bases. 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 Transcribe Date/Time: Feb 27 2021 6:57A Dictated by : ISABEL MAK MD This examination was interpreted and the report reviewed and electronically signed by: ISABEL MAK MD on Feb 27 2021 6:58AM EST [id number] Normal [facility] ALLIED HEALTHon 02-26-2021 ALLIED HEALTH HNO ID: [id number] Author: RT Wilbert(Dana) Service: ? Author Type: Technologist Type: Allied Health Filed: 02/26/2021 2:53 PM Note Text: Radiology Service Progress Note PATIENT NAME: Kulwant Andrade DATE OF SERVICE: February 26, 2021 TIME: 2:53 PM PATIENT IDENTITY VERIFICATION COMPLETED USING TWO (2) IDENTIFIERS: Name and Date of confirmed by identification band. FALL SCREENING: Has the patient had 2 falls in the last year or 1 fall with injury or currently using an Ambulatory Assistive Device (Walker, Cane, Wheelchair, Crutches, etc.)? Inpatient: Screened on floor PATIENT GENDER DATA: Male PATIENT RELEVANT IMPLANT DATA REVIEWED: Not Applicable RADIOLOGY DEPARTMENT: General X-ray: Exam(s) Completed: Chest X-Ray PERIPHERAL IV DATA: Not applicable SIGNED BY: RT Wilbert(R) February 26, 2021 2:53 PM Normal [facility] ANES PRE-OPon 02-26-2021 ANES PRE-OP HNO ID: [id number] Author: Rodrigo Rubin DO Service: Anesthesiology Author Type: Physician Type: Anesthesia Preprocedure Evaluation Filed: 02/26/2021 10:53 AM Note Text: ANESTHESIOLOGY DAY OF SURGERY NOTE : 1940 Procedure(s) (LRB): BYPASS GRAFT ARTERY CORONARY ON-PUMP THREE CORONARY ARTERIAL GRAFTS (N/A) Surgeon(s): Todd Grewal MD Estimated body mass index is 22.25 kg/m? as calculated from the following: Height as of this encounter: 182.9 cm (6'). Weight as of this encounter: 74.4 kg (164 lb 0.4 oz). Most recent hematocrit and potassium results: Hematocrit 36.1 02/26/2021 Hematocrit (POCT) 33 02/26/2021 Potassium 3.9 02/25/2021 Potassium (POCT) 3.7 02/26/2021 Relevant Problems CARDIO (+) CAD (coronary artery disease) (+) Essential hypertension, benign -RENAL (+) BART (acute kidney injury) (HCC) I - PHYSICAL EVALUATION AIRWAY Patient intubated: No. Mallampati: II. TM distance: >3 FB. Neck ROM: full ROM without neurological symptoms. Mouth opening: adequate. DENTAL Dental findings: teeth intact. Additional exam findings: yes. CARDIOVASCULAR Normal cardiovascular observations. PULMONARY Normal pulmonary observations. II - ANESTHESIA PLAN ASA Score: 4 Anesthetic Plan: general Airway type: ETT Anesthetic plan additional comments: Pt with Legionella PNA back in October. Had worsened AWAN which lead to LHC showing MV CAD. Here for CABG. Echo, PFTs, and LHC reviewed. . NPO Status: adequate Monitoring plan: standard ASA and invasive hemodynamic monitoring. Monitoring method: arterial Line, CVL and STEWART STEWART details: patient denies history of stricture or varices Postoperative analgesic plan: parenteral or oral opioids, multimodal analgesia and go to ICU. Anesthetic Risks, Benefits, Alternatives, Personnel Discussed. Consent obtained from: patient.Patient / Surrogate agrees to blood products: Yes Significant changes in the patient condition since the History and Physical, not otherwise documented in primary service progress note: no. Vitals Value Taken Time BP 157/86 02/26/21851 Pulse 62 02/26/21851 Resp 20 02/26/21851 Temp 36.4 ?C (97.5 ?F) 02/26/21851 SpO2 96 % 02/26/21851 Facility-Administered Medications as of 02/26/2021 Medication Dose Route Frequency - aztreonam 2 g in D5W 100 mL MB+ (AZACTAM) 2 g INTRAVENOUS q 4 HR - [COMPLETED] vancomycin iv piggyback 1 g in D5W 200 mL (VANCOCIN) 1 g INTRAVENOUS ONCE - [MAR Hold due to Transfer] lactated ringers iv infusion 50 mL/hr INTRAVENOUS CONTINUOUS - [COMPLETED] acetaminophen 1,000 mg tab(s) (TYLENOL) 1,000 mg ORAL ONCE - [MAR Hold due to Transfer] aspirin 81 mg chewable tab(s) 81 mg ORAL DAILY - [MAR Hold due to Transfer] Chlorhexidine Gluconate 0.12 % 15 mL (PERIDEX) 15 mL ORAL q 6 H - [MAR Hold due to Transfer] ipratropium-albuterol 3 mL nebulizer solution (DUONEB) 3 mL INHALATION TID - [COMPLETED] lisinopril 10 mg tab(s) (ZESTRIL, PRINIVIL) 10 mg ORAL DAILY - [] heparin iv infusion (LOW DOSE ACS/NOMOGRAM) 25,000 units in NaCl 0.45% 250 mL PREMIX 0-3,000 Units/hr INTRAVENOUS CONTINUOUS And - [MAR Hold due to Transfer] heparin RATE CHANGE bolus 1,000-4,000 Units for subtherapeutic aptt results 1,000-4,000 Units INTRAVENOUS PRN - [] heparin nomogram - NO INITIAL BOLUS OTHER ONCE (heparin bolus) - [MAR Hold due to Transfer] levothyroxine 75 mcg tab(s) (SYNTHROID) 75 mcg ORAL BEFORE BREAKFAST DAILY - [MAR Hold due to Transfer] famotidine 40 mg tab(s) (PEPCID) 40 mg ORAL DAILY - [MAR Hold due to Transfer] metoprolol tartrate (short acting) 12.5 mg tab(s) (LOPRESSOR) 12.5 mg ORAL BID - [MAR Hold due to Transfer] sodium chloride 0.9 % (flush) 2-10 mL (BD POSIFLUSH) 2-10 mL INTRAVENOUS q 12 H - [MAR Hold due to Transfer] nitroglycerin sublingual 0.4 mg tab(s) (NITROQUICK) 0.4 mg SUBLINGUAL q 5 MIN PRN - [MAR Hold due to Transfer] NaCl 0.9% iv flush bag 20 mL INTRAVENOUS PRN - [MAR Hold due to Transfer] sodium chloride 0.9 % (flush) 3-5 mL (BD POSIFLUSH) 3-5 mL INTRAVENOUS q 12 H - [MAR Hold due to Transfer] pantoprazole DR 20 mg tab(s) (PROTONIX) 20 mg ORAL DAILY (6 AM) - [JUL Hold due to Transfer] atorvastatin 40 mg tab(s) (LIPITOR) 40 mg ORAL AT BEDTIME - [JUL Hold due to Transfer] mupirocin 2 % 0.5 g ointment (BACTROBAN) 0.5 g NASAL BID Outpatient Medications as of 02/26/2021 Medication Sig - famotidine (PEPCID) 40 mg tablet Take 40 mg by mouth once daily. - metoprolol tartrate, short acting, (LOPRESSOR) 25 mg tablet Take 25 mg by mouth twice daily. - Cholecalciferol, Vitamin D3, 125 mcg (5,000 unit) cap Take 5,000 Units by mouth once daily. - levothyroxine (SYNTHROID) 75 mcg tablet Take 75 mcg by mouth daily before breakfast. - acetaminophen/diphenhyd ramine (TYLENOL PM EXTRA STRENGTH ORAL) Take 2 tablets by mouth as needed. - spironolactone (ALDACTONE) 25 mg tablet Take 25 mg by mouth once daily. - omeprazole (more content not included)... Normal [facility] ARTERIAL BLOOD GASESon 02-26 BASE DEFICIT, ARTERIAL -5.5 mmol/L Low -2-0 [facility] Comment on above: Order Comment: Speci men Type: ARTERIAL BLOOD SPECIMEN Performed By: #### A LLBG ####[facility]ORATORYCLIA [id number] [place] [address] [place] Body temperature 97.16 [degF] Normal [facility] Comment on above: Order Comment: Speci men Type: ARTERIAL BLOOD SPECIMEN Performed By: #### A LLBG ####[facility]ORY[facility] [id number] [address] CALCIUM IONIZED, PH CORRECTED 1.21 mmol/L Normal 1.08-1.30 [facility] Comment on above: Order Comment: Speci men Type: ARTERIAL BLOOD SPECIMEN Performed By: #### A LLBG ####[facility]ORYCL[facility] [id number] [address] Calcium.ionized (BldV) [Mass/Vol] 1.27 mmol/L Normal 1.08-1.30 [facility] Comment on above: Order Comment: Speci men Type: ARTERIAL BLOOD SPECIMEN Performed By: #### A LLBG ####[facility]ORYCLIA [id number] [address] OF [facility] Carboxyhemoglobin (BldA) [Mass fraction] 1.0 % Normal 0.0-2.0 [facility] Comment on above: Order Comment: Speci men Type: ARTERIAL BLOOD SPECIMEN Result Comment: Carb oxyhemoglobin Reference Range for Smokers: 2.0-8.0% Performed By: #### A LLBG ####[facility]ORYCLIA [id number] [address] OF [place] CO2 (Bld) [Partial pressure] 42 mm Hg Normal 36-46 [facility] Comment on above: Order Comment: Speci men Type: ARTERIAL BLOOD SPECIMEN Performed By: #### A LLBG ####[facility] [id number] [address] OF [place] CO2 [Moles/Vol] 19.0 mmol/L Low 22-28 [facility] Comment on above: Order Comment: Speci men Type: ARTERIAL BLOOD SPECIMEN Performed By: #### A LLBG ####[facility]ORYCLIA [id number] [address] OF [place] CO2 adjusted to patient's actual temperature (Bld) [Partial pressure] 40 mmHg Normal 36-46 [facility] Comment on above: Order Comment: Speci men Type: ARTERIAL BLOOD SPECIMEN Performed By: #### A LLBG ####[facility]ORY[facility]IA [id number] [address] Glucose [Mass/Vol] 99 mg/dL Normal 60-105 [facility] Comment on above: Order Comment: Speci men Type: ARTERIAL BLOOD SPECIMEN Performed By: #### A LLBG ####[facility]ORYCLIA [id number] [address] HCO3 (Bld) [Moles/Vol] 20 mmol/L Low 22-26 [facility] Comment on above: Order Comment: Speci men Type: ARTERIAL BLOOD SPECIMEN Performed By: #### A LLBG ####[facility]ORYCLIA [id number] [address] Hematocrit (Bld) [Volume fraction] 29.7 % Low 39.0-51.0 [facility] Comment on above: Order Comment: Speci men Type: ARTERIAL BLOOD SPECIMEN Performed By: #### A LLBG ####[facility]ORYCL[facility] [id number] [address] Hemoglobin (Bld) [Mass/Vol] 9.6 g/dL Low 13.0-17.0 [facility] Comment on above: Order Comment: Speci men Type: ARTERIAL BLOOD SPECIMEN Performed By: #### A LLBG ####[facility]ORYCLIA [id number] [address] Methemoglobin (Bld) [Mass fraction] % Normal 0.0-1.5 [facility] Comment on above: Order Comment: Speci men Type: ARTERIAL BLOOD SPECIMEN Performed By: #### A LLBG ####[facility]ORYCLIA [id number] [address] O2 THERAPY Ventilator Normal [facility] Comment on above: Order Comment: Speci men Type: ARTERIAL BLOOD SPECIMEN Performed By: #### A LLBG ####[facility]ORYCLIA [id number] [place], [place] [id number] [place] [address] OF [facility] Oxygen (Bld) [Partial pressure] 118 mm Hg High 85-95 [facility] Comment on above: Order Comment: Speci men Type: ARTERIAL BLOOD SPECIMEN Performed By: #### A LLBG ####[facility]ORYCLIA [id number] [place], [place] [address] [place] [address] Oxygen adjusted to patient's actual temperature (Bld) [Partial pressure] 113 mmHg High 85-95 [facility] Comment on above: Order Comment: Speci men Type: ARTERIAL BLOOD SPECIMEN Performed By: #### A LLBG ####[facility]ORYCLIA [id number] [address] OXYGEN SATURATION, ARTERIAL 97 % Normal 95-98 [facility] Comment on above: Order Comment: Speci men Type: ARTERIAL BLOOD SPECIMEN Performed By: #### A LLBG ####[facility]ORYCLIA [id number] [address] Oxyhemoglobin (BldA) [Mass fraction] 95 % Normal 95-98 [facility] Comment on above: Order Comment: Speci men Type: ARTERIAL BLOOD SPECIMEN Performed By: #### A LLBG ####[facility]ORYCLIA [id number] [address] [place] pH (Bld) 7.30 [pH] Low 7.35-7.45 [facility] Comment on above: Order Comment: Speci men Type: ARTERIAL BLOOD SPECIMEN Performed By: #### A LLBG ####[facility]ORYCLIA [id number] [address] pH adjusted to patient's actual temperature (Bld) 7.31 Low 7.35-7.45 [facility] Comment on above: Order Comment: Speci men Type: ARTERIAL BLOOD SPECIMEN Performed By: #### A LLBG ####[facility]ORYCLIA [id number] [address] Potassium [Moles/Vol] 4.7 mmol/L Normal 3.5-5.0 [facility] Comment on above: Order Comment: Speci men Type: ARTERIAL BLOOD SPECIMEN Performed By: #### A LLBG ####[facility]ORYCLIA [id number] [address] Sodium [Moles/Vol] 138 mmol/L Normal 136-144 [facility] Comment on above: Order Comment: Speci men Type: ARTERIAL BLOOD SPECIMEN Performed By: #### A LLBG ####[facility]ORYCLIA [id number] [address] BASE DEFICIT, ARTERIAL -6.1 mmol/L Low -2-0 [facility] Comment on above: Order Comment: Speci men Type: ARTERIAL BLOOD SPECIMEN Performed By: #### A LLBG ####[facility]ATORYCLIA [id number] [address] Body temperature 96.08 [degF] Normal [facility] Comment on above: Order Comment: Speci men Type: ARTERIAL BLOOD SPECIMEN Performed By: #### A LLBG ####[facility]ORYCLIA [id number] [address] CALCIUM IONIZED, PH CORRECTED 1.24 mmol/L Normal 1.08-1.30 [facility] Comment on above: Order Comment: Speci men Type: ARTERIAL BLOOD SPECIMEN Performed By: #### A LLBG ####[facility]ORYCLIA [id number] [address] Calcium.ionized (BldV) [Mass/Vol] 1.26 mmol/L Normal 1.08-1.30 [facility] Comment on above: Order Comment: Speci men Type: ARTERIAL BLOOD SPECIMEN Performed By: #### A LLBG ####[facility]ORYCLIA [id number] [address] Carboxyhemoglobin (BldA) [Mass fraction] 1.1 % Normal 0.0-2.0 [facility] Comment on above: Order Comment: Speci men Type: ARTERIAL BLOOD SPECIMEN Result Comment: Carb oxyhemoglobin Reference Range for Smokers: 2.0-8.0% Performed By: #### A LLBG ####[facility]ORYCLIA [id number] [address] CO2 (Bld) [Partial pressure] 32 mm Hg Low 36-46 [facility] Comment on above: Order Comment: Speci men Type: ARTERIAL BLOOD SPECIMEN Performed By: #### A LLBG ####[facility]ORYCLIA [id number] [address] CO2 [Moles/Vol] 16.9 mmol/L Low 22-28 [facility] Comment on above: Order Comment: Speci men Type: ARTERIAL BLOOD SPECIMEN Performed By: #### A LLBG ####[facility]ORYCLIA [id number] [address] CO2 adjusted to patient's actual temperature (Bld) [Partial pressure] 30 mmHg Low 36-46 [facility] Comment on above: Order Comment: Speci men Type: ARTERIAL BLOOD SPECIMEN Performed By: #### A LLBG ####[facility]ORYCLIA [id number] [address] Glucose [Mass/Vol] 90 mg/dL Normal 60-105 [facility] Comment on above: Order Comment: Speci men Type: ARTERIAL BLOOD SPECIMEN Performed By: #### A LLBG ####[facility]ORYCLIA [id number] [address] HCO3 (Bld) [Moles/Vol] 18 mmol/L Low 22-26 [facility] Comment on above: Order Comment: Speci men Type: ARTERIAL BLOOD SPECIMEN Performed By: #### A LLBG ####[facility]ORYCLIA [id number] [address] Hematocrit (Bld) [Volume fraction] 29.7 % Low 39.0-51.0 [facility] Comment on above: Order Comment: Speci men Type: ARTERIAL BLOOD SPECIMEN Performed By: #### A LLBG ####[facility]ORYCLIA [id number] [address] Hemoglobin (Bld) [Mass/Vol] 9.6 g/dL Low 13.0-17.0 [facility] Comment on above: Order Comment: Speci men Type: ARTERIAL BLOOD SPECIMEN Performed By: #### A LLBG ####[facility]ORYCLIA [id number] [address] Methemoglobin (Bld) [Mass fraction] 1.4 % Normal 0.0-1.5 [facility] Comment on above: Order Comment: Speci men Type: ARTERIAL BLOOD SPECIMEN Performed By: #### A LLBG ####[facility]ORYCLIA [id number] [address] O2 THERAPY Ventilator Normal [facility] Comment on above: Order Comment: Speci men Type: ARTERIAL BLOOD SPECIMEN Performed By: #### A LLBG ####[facility]ORYCLIA [id number] [address] Oxygen (Bld) [Partial pressure] 179 mm Hg High 85-95 [facility] Comment on above: Order Comment: Speci men Type: ARTERIAL BLOOD SPECIMEN Performed By: #### A LLBG ####[facility]ORYCLIA [id number] [address] Oxygen adjusted to patient's actual temperature (Bld) [Partial pressure] 173 mmHg High 85-95 [facility] Comment on above: Order Comment: Speci men Type: ARTERIAL BLOOD SPECIMEN Performed By: #### A LLBG ####[facility]ORYCLIA [id number] [address] OXYGEN SATURATION, ARTERIAL 98 % Normal 95-98 [facility] Comment on above: Order Comment: Speci men Type: ARTERIAL BLOOD SPECIMEN Performed By: #### A LLBG ####[facility]ORYCLIA [id number] [address] [place] Oxyhemoglobin (BldA) [Mass fraction] 96 % Normal 95-98 [facility] Comment on above: Order Comment: Speci men Type: ARTERIAL BLOOD SPECIMEN Performed By: #### A LLBG ####[facility]ORYCLIA [id number] [address] [place] pH (Bld) 7.37 [pH] Normal 7.35-7.45 [facility] Comment on above: Order Comment: Speci men Type: ARTERIAL BLOOD SPECIMEN Performed By: #### A LLBG ####[facility]ORYCLIA [id number] [address] pH adjusted to patient's actual temperature (Bld) 7.39 Normal 7.35-7.45 [facility] Comment on above: Order Comment: Speci men Type: ARTERIAL BLOOD SPECIMEN Performed By: #### A LLBG ####[facility]ATORYCLIA [id number] [address] [place] Potassium [Moles/Vol] 3.6 mmol/L Normal 3.5-5.0 [facility] Comment on above: Order Comment: Speci men Type: ARTERIAL BLOOD SPECIMEN Performed By: #### A LLBG ####[facility]ORYCLIA [id number] [address] STATES OF [facility] Sodium [Moles/Vol] 140 mmol/L Normal 136-144 [facility] Comment on above: Order Comment: Speci men Type: ARTERIAL BLOOD SPECIMEN Performed By: #### A LLBG ####[facility]ORYCLIA [id number] [place] [address] [place] Basic metabolic 2000 panelon 02-26-2021 Anion gap [Moles/Vol] 9 mmol/L Normal 9-18 [facility] Comment on above: Order Comment: Speci men Type: BLOOD SPECIMEN Performed By: #### 2 4321-2, 65316-8 ####[facility]ORYCLIA [id number] [address] [place] Calcium [Mass/Vol] 8.6 mg/dL Normal 8.5-10.2 [facility] Comment on above: Order Comment: Speci men Type: BLOOD SPECIMEN Performed By: #### 2 432-2, ####[facility]ATORYCLIA [id number] [place], [place] [address] [place] [address] [place] Chloride [Moles/Vol] 112 mmol/L High 97-105 [facility] Comment on above: Order Comment: Speci men Type: BLOOD SPECIMEN Performed By: #### 2 432-2, ####[facility]ATORYCLIA [id number] [address] [place] CO2 [Moles/Vol] 19 mmol/L Low 22-30 [facility] Comment on above: Order Comment: Speci men Type: BLOOD SPECIMEN Performed By: #### 2 4322, ####[facility]ATORYCLIA [id number] [address] [place] Creatinine [Mass/Vol] 1.06 mg/dL Normal 0.73-1.22 [facility] Comment on above: Order Comment: Speci men Type: BLOOD SPECIMEN Performed By: #### 2 432-2, ####[facility]ATORYCLIA [id number] [address] [place] GFR/1.73 sq M.predicted MDRD (S/P/Bld) [Vol rate/Area] mL/min/{1.73_m2} Normal [facility] Comment on above: Order Comment: Speci men Type: BLOOD SPECIMEN Result Comment: >60 eGFR (Estimated GFR) Units of measure: mL/min/1.73 meters squared eGFR is derived from the reexpressed MDRD Study equation using the following parameters: serum creatinine, age, gender and race. The creatinine assay has been calibrated to be traceable to IDMS. An eGFR <60 mL/min/1.73m2 for >3 months is consistent with chronic kidney disease. Refer to KDOQI guidelines for clinical interpretation. In patients with unstable renal function, e.g. those with acute kidney injury, the eGFR may not accurately reflect actual GFR. Performed By: #### 2 4320-07, ####[facility]ATORYCLIA [id number] [address] [place] Glucose [Mass/Vol] 98 mg/dL Normal 74-99 [facility] Comment on above: Order Comment: Speci men Type: BLOOD SPECIMEN Result Comment: The [place] [employer] (ADA) provides guidance for cutoff values for fasting glucose and random glucose. The ADA defines fasting as no caloric intake for at least 8 hours. Fasting plasma glucose results between 100 to 125 mg/dL indicate increased risk for diabetes (prediabetes). Fasting plasma glucose results greater than or equal to 126 mg/dL meet the criteria for diagnosis of diabetes. In the absence of unequivocal hyperglycemia, results should be confirmed by repeat testing. In a patient with classic symptoms of hyperglycemia or hyperglycemic crisis, random plasma glucose results greater than or equal to 200 mg/dL meet the criteria for diagnosis of diabetes. Reference: Standards of Medical Care in Diabetes 2016, [place] [employer]. Diabetes Care. 2016.39(Suppl 1). Performed By: #### 2 4320-07, ####[facility]ATORYCLIA [id number] [address] [place] Potassium [Moles/Vol] 4.0 mmol/L Normal 3.7-5.1 [facility] Comment on above: Order Comment: Speci men Type: BLOOD SPECIMEN Performed By: #### 2 ####[facility]ORYCLIA [id number] [address] [place] Sodium [Moles/Vol] 140 mmol/L Normal 136-144 [facility] Comment on above: Order Comment: Speci men Type: BLOOD SPECIMEN Performed By: #### 2 4320-07, ####[facility]ORYCLIA [id number] [address] STATES OF [facility] Urea nitrogen [Mass/Vol] 21 mg/dL Normal 9-24 [facility] Comment on above: Order Comment: Speci men Type: BLOOD SPECIMEN Performed By: #### 2 4320-07, ####[facility]ORATORYCLIA [id number] [address] CBC panel Auto (Bld)on 02-26 Erythrocyte distribution width (RBC) [Ratio] 12.4 % Normal 11.5-15.0 [facility] Comment on above: Order Comment: Speci men Type: BLOOD SPECIMEN Performed By: #### 5 8410-2 ####[facility]ORYCLIA [id number] [address] Hematocrit (Bld) [Volume fraction] 30.6 % Low 39.0-51.0 [facility] Comment on above: Order Comment: Speci men Type: BLOOD SPECIMEN Performed By: #### 5 8410-2 ####[facility]ORYCLIA [id number] [address] Hemoglobin (Bld) [Mass/Vol] 9.9 g/dL Low 13.0-17.0 [facility] Comment on above: Order Comment: Speci men Type: BLOOD SPECIMEN Performed By: #### 5 8410-2 ####[facility]ORYCLIA [id number] [address] MCH (RBC) [Entitic mass] 31.4 pg Normal 26.0-34.0 [facility] Comment on above: Order Comment: Speci men Type: BLOOD SPECIMEN Performed By: #### 5 8410-2 ####[facility]ORYCLIA [id number] [address] MCHC (RBC) [Mass/Vol] 32.4 g/dL Normal 30.5-36.0 [facility] Comment on above: Order Comment: Speci men Type: BLOOD SPECIMEN Performed By: #### 5 8410-2 ####[facility]ORYCLIA [id number] [address] MCV (RBC) [Entitic vol] 97.1 fL Normal 80.0-100.0 [facility] Comment on above: Order Comment: Speci men Type: BLOOD SPECIMEN Performed By: #### 5 8410-2 ####[facility]ORYCLIA [id number] [address] Nucleated RBC (Bld) [#/Vol] 10*3/uL Normal <0.01 [facility] Comment on above: Order Comment: Speci men Type: BLOOD SPECIMEN Performed By: #### 5 8410-2 ####[facility]ORYCLIA [id number] [address] Platelet mean volume (Bld) [Entitic vol] 10.0 fL Normal 9.0-12.7 [facility] Comment on above: Order Comment: Speci men Type: BLOOD SPECIMEN Performed By: #### 5 8410-2 ####[facility]ORYCLIA [id number] [address] Platelets (Bld) [#/Vol] 206 10*3/uL Normal 150-400 [facility] Comment on above: Order Comment: Speci men Type: BLOOD SPECIMEN Performed By: #### 5 8410-2 ####[facility]ORYCLIA [id number] [address] RBC (Bld) [#/Vol] 3.15 10*6/uL Low 4.20-6.00 [facility] Comment on above: Order Comment: Speci men Type: BLOOD SPECIMEN Performed By: #### 5 8410-2 ####[facility]ORYCLIA [id number] [address] WBC (Bld) [#/Vol] 9.59 10*3/uL Normal 3.70-11.00 [facility] Comment on above: Order Comment: Speci men Type: BLOOD SPECIMEN Performed By: #### 5 8410-2 ####[facility]ORYCLIA [id number] [address] Erythrocyte distribution width (RBC) [Ratio] 12.3 % Normal 11.5-15.0 [facility] Comment on above: Order Comment: Speci men Type: BLOOD SPECIMEN Performed By: #### 5 8410-2 ####[facility]ORYCLIA [id number] [address] Hematocrit (Bld) [Volume fraction] 36.1 % Low 39.0-51.0 [facility] Comment on above: Order Comment: Speci men Type: BLOOD SPECIMEN Performed By: #### 5 8410-2 ####[facility]ORYCLIA [id number] [address] Hemoglobin (Bld) [Mass/Vol] 11.7 g/dL Low 13.0-17.0 [facility] Comment on above: Order Comment: Speci men Type: BLOOD SPECIMEN Performed By: #### 5 8410-2 ####[facility]ORYCLIA [id number] [address] MCH (RBC) [Entitic mass] 31.2 pg Normal 26.0-34.0 [facility] Comment on above: Order Comment: Speci men Type: BLOOD SPECIMEN Performed By: #### 5 8410-2 ####[facility]ORYCLIA [id number] [address] MCHC (RBC) [Mass/Vol] 32.4 g/dL Normal 30.5-36.0 [facility] Comment on above: Order Comment: Speci men Type: BLOOD SPECIMEN Performed By: #### 5 8410-2 ####[facility]ORYCLIA [id number] [address] MCV (RBC) [Entitic vol] 96.3 fL Normal 80.0-100.0 [facility] Comment on above: Order Comment: Speci men Type: BLOOD SPECIMEN Performed By: #### 5 8410-2 ####[facility]ORYCLIA [id number] [address] Nucleated RBC (Bld) [#/Vol] 10*3/uL Normal <0.01 [facility] Comment on above: Order Comment: Speci men Type: BLOOD SPECIMEN Performed By: #### 5 8410-2 ####[facility]ORYCLIA [id number] [address] Platelet mean volume (Bld) [Entitic vol] 10.1 fL Normal 9.0-12.7 [facility] Comment on above: Order Comment: Speci men Type: BLOOD SPECIMEN Performed By: #### 5 8410-2 ####[facility]ORYCLIA [id number] [address] Platelets (Bld) [#/Vol] 236 10*3/uL Normal 150-400 [facility] Comment on above: Order Comment: Speci men Type: BLOOD SPECIMEN Performed By: #### 5 8410-2 ####[facility]ORYCLIA [id number] [address] RBC (Bld) [#/Vol] 3.75 10*6/uL Low 4.20-6.00 [facility] Comment on above: Order Comment: Speci men Type: BLOOD SPECIMEN Performed By: #### 5 8410-2 ####[facility]ORYCLIA [id number] [address] WBC (Bld) [#/Vol] 5.67 10*3/uL Normal 3.70-11.00 [facility] Comment on above: Order Comment: Speci men Type: BLOOD SPECIMEN Performed By: #### 5 8410-2 ####[facility]ORYCLIA [id number] [address] CONSULTon 02-26-2021 CONSULT HNO ID: [id number] Author: Kishore Schwab MD Service: Critical Care Author Type: Physician Type: Consults Filed: 02/26/2021 5:08 PM Note Text: CRITICAL CARE CONSULT NOTE SERVICE DATE: 02/26/2021 SERVICE TIME: 4:54 PM REASON FOR CONSULT: Post-op respiratory insufficiency and abnormal Chest CT scan of 02/23/21. REQUESTING PHYSICIAN: Dr. Lahorra? ADMITTING PROVIDER: Martinez Bettencourt II, MD SERVICE DATE: 02/26/2021 SERVICE TIME: 4:54 PM Admission Date: 02/23/2021 AGE: [age] year old LOS: 3 days Subjective 80 yo WM with no history of lung disease and LLNS who we are asked to see immediate post-op care following CABG x 3 due to multivessel disease noted on recent cardiac cath in [place] with preserved EF. Patient had noted increased SOB/AWAN and LE swelling in which he underwent a stress test in October showing perfusion defects in the inferolateral and lateral apical segments. EF was 83%. He is now sedated and unresponsive on vent with SIMV/PSV-12 P-5 PS-12 FiO2 40% and Vt-570ml. SaO2 99% and Ve-6-7l/min. 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, Acquired Arthralgia Esr Raised Crp Elevated Bart (Acute Kidney Injury) (Hcc) Dehydration Hypercalcemia Low Serum Parathyroid Hormone (Pth) Cad (Coronary Artery Disease) PAST MEDICAL HISTORY Diagnosis Date - Chronic cholecystitis - Essential hypertension, benign - Myalgia and myositis, unspecified - Other and unspecified hyperlipidemia PAST SURGICAL HISTORY Procedure Laterality Date - EXPLORATORY OF ABDOMEN Laparotomy, exp - LAPAROSCOPIC CHOLECYSTECTOMY 05/03/07 - PAST SURGICAL HISTORY OF back surgery - PAST SURGICAL HISTORY OF excision of kidney tumor Social History Tobacco Use - Smoking status: Never Smoker - Smokeless tobacco: Never Used Substance Use Topics - Alcohol use: No - Drug use: Not on file VITAL SIGNS (last 24hrs min/max): Temp Av.9 ?C (96.6 ?F) Min: 35.2 ?C (95.36 ?F) Max: 36.8 ?C (98.2 ?F) Pulse Av.4 Min: 0 Max: 156 Arterial BP 1 Min: -37/-40 Max: 234/230 Cuff BP Min: 71/57 Max: 173/100 Pain Level: 0 Vital signs reviewed. BP 111/74 Pulse 52 Temp (Src) 95.36 (Andrews Thermistor) Resp 11 Ht 6' 0 (1.83m) Wt 164 lb 0.4 oz (74.4kg) SpO2 99% BMI 22.24 kg/(m2). O2 Therapy: Ventilator, %FIO2: 40 Temp (24hrs), Av.9 ?C (96.6 ?F), Min:35.2 ?C (95.36 ?F), Max:36.8 ?C (98.2 ?F) NET FLUID BALANCE Intake/Output Summary (Last 24 hours) at 02/26/2021 1654 Last data filed at 02/26/2021 1600 Gross per 24 hour Intake 2967 ml Output 720 ml Net 2247 ml MEDICATIONS Current Facility-Administered Medications Medication Dose Route Frequency - insulin regular iv infusion 100 units in NaCl 0.9% 100 mL - AK CARD SURG NOMOGRAM 0-12 Units/hr INTRAVENOUS CONTINUOUS - insulin regular human 10 Units bolus from bag 10 Units INTRAVENOUS PRN - dextrose 50% in water 25 mL syringe 12.5 g INTRAVENOUS PRN - potassium chloride iv piggyback 20 mEq/100 mL 20 mEq INTRAVENOUS PRN - magnesium sulfate in sterile water 2 g in sterile water 50 ml 2 g INTRAVENOUS PRN(NO DISPENSE) - sodium chloride 0.9 % (flush) 3-5 mL (BD POSIFLUSH) 3-5 mL INTRAVENOUS q 12 H - lactated ringers iv infusion 50 mL/hr INTRAVENOUS CONTINUOUS - lactated ringers 250 mL iv bolus 250 mL INTRAVENOUS PRN - albuterol 2.5 mg /3 mL (0.083 %) 2.5 mg (PROVENTIL) 2.5 mg INHALATION q 2 H PRN - PHENYLephrine iv infusion 10 mg in NaCl 0.9% 250 mL (DOE-SYNEPHRINE) 0-100 mcg/min INTRAVENOUS CONTINUOUS - ondansetron (PF) 4 mg injection (ZOFRAN) 4 mg INTRAVENOUS q 6 H PRN - midazolam (PF) 2 mg injection (VERSED) 2 mg INTRAVENOUS q 6 H PRN - acetaminophen 1,000 mg tab(s) (TYLENOL) 1,000 mg ORAL q 6 H - lidocaine 4 % 1 Patch (SALONPAS) 1 Patch TRANSDERMAL ONCE - magnesium oxide 400 mg tab(s) (MAG-OX) 400 mg ORAL DAILY - traMADol 50-100 mg tab(s) (ULTRAM) 50-100 mg ORAL q 6 H PRN - morphine 2-4 mg injection 2-4 mg INTRAVENOUS q 1 H PRN - dexmedeTOMIDine 400 mcg in NaCl 0.9% 100 mL (PRECEDEX) 0.2-0.7 mcg/kg/hr (Order-Specific) INTRAVENOUS CONTINUOUS Lines, Drains, and Airways Line Peripheral Double Lumen 02/23/21 0515 Admission to Hospital Short Left Forearm 22 Gauge 3 days Peripheral 02/24/21 0600 Assessment Short Right Forearm 20 Gauge 2 days Arterial Line/Sheath 02/26/21 0953 Left Radial <1 day Drain Chest Tube 02/26/21 Left Pleural 28 Fr Tube #2 <1 day Chest Tube 02/26/21 Mediastinal 32 Fr Tube #1 <1 day Indwelling Urinary Catheter 02/26/21 1000 Temperature Monitoring 16 Fr <1 day Airway Airway Endotracheal Tube 02/26/21 <1 day Airway Endotracheal Tube 02/26/21 0958 <1 day PHYSICAL EXAM PERFORMED: Age-appropriate WD WN WM orotracheally intubated. ENT: Pupils 3mm and equal reacti (more content not included)... Normal [facility] Magnesium SerPl-mCncon 02-26 Magnesium [Mass/Vol] 2.4 mg/dL High 1.7-2.3 [facility] Comment on above: Order Comment: Speci men Type: BLOOD SPECIMEN Performed By: #### 2 4321-2, 43871-7 ####[facility] LABORATORYCLIA [id number] [place] [address] [place] OPERATIVE NOon 02-26-2021 OPERATIVE NO HNO ID: [id number] Author: Todd Grewal MD Service: Cardiac Surgery Author Type: Physician Type: Operative Report Filed: 02/26/2021 4:15 PM Note Text: [facility] CARDIO-THORACICSURGERY OPERATIVE/PROCEDURE REPORT LOG ID: [id number] SURGERY/PROCEDURE DATE: 02/26/2021 INCISION/PROCEDURE START TIME: 10:45 AM INCISION CLOSE/PROCEDURE END TIME: 2:10 PM SURGEON(S)/PROCEDURALIS T(S) AND NEUROLOGY PHYSICIAN ASSISTANT(S): Surgeon(s) and Role: * Todd Grewal MD - Primary Physician Sewage Screen Operator: Timo Hooper PA-C Tawer: Lorrie Holt SA ANESTHESIA: General CTS OP REPORTS PROCEDURE(S): Coronary Artery Bypass Graft PREOPERATIVE DIAGNOSIS: Complex Vessel Coronary Artery Disease POSTOPERATIVE DIAGNOSIS: Same as preop FINDINGS: Normal LV function pre and post excellent graft flows DESCRIPTION OF PROCEDURE: Operative Approach: Full Conventional Sternotomy Reoperation: No previous surgeries PUMP: ON PUMP Arterial Cannulation: Aortic Venous Cannulation: Right Atrial CARDIOPLEGIA: Buckberg Cardioplegia Delivery: Antegrade CABG: CONDUIT QUALITY: Normal caliber with excellent flow AORTA QUALITY: Normal CORONARY ARTERY QUALITY: Normal Proximal Technique: Single cross clamp GRAFTS: ? SPRINGER in situ mammary end to side mid LAD ? Vein graft ascending aorta end to side obtuse marginal 1 ? Vein graft ascending aorta posterior descending (PDA) Left RE: Skeletonized [place] Technique: Direct vision (open) Vein(s) Harvested: Left leg greater saphenous [place] Technique: Endoscopic POST-BYPASS: Aortic Occlusion: Aortic cross clamp PACING WIRES: None CHEST TUBES/DRAINS: Left chest tube and Mediastinal chest tube CLOSURE: Routine with sternal wires sternal plate x 1 POST-PROCEDURE DETAILS: Patient Tolerance of Procedure: tolerated well, no immediate complications Sponge/Instrument/Needl e Counts: Final Counts Correct Estimated Blood Loss: 250 mL of shed blood was preserved by cardiopulmonary bypass pump and the cell saver. Specimens: None SURGEON/NEUROLOGY PHYSICIAN ASSISTANT PARTICIPATION: The primary Surgeon/Proceduralist performed the procedure with assistance. No qualified Resident/Fellow was available. Sample Sewer: opened and closed Second Assist: opened, closed and harvested graft Grafts Harvested: left greater saphenous vein OTHER FINDINGS/DETAILS: FAHEEM Denis: surgical first assistant Lorrie Holt SA second assist and harvest vein COMPLETED BY: Todd Grewal MD PATIENT NAME: Kulwant Andrade DATE: February 26, 2021 TIME: 4:09 PM AGE: [age] year old Normal [facility] PT panel Coag (PPP)on 2020 INR Coag (PPP) [Relative time] 1.1 {INR} Normal 0.9-1.3 [facility] Comment on above: Order Comment: Speci men Type: BLOOD SPECIMEN Result Comment: Maya min K Antagonist (VKA) Therapeutic Range: INR 2 to 3 (Target INR of 2.5) Note: For patients treated with VKA drugs, such as warfarin, the [place] [employer] 2012 Guideline recommends a therapeutic INR range of 2 to 3 (target INR of 2.5). This recommendation includes high-risk patients with antiphospholipid syndrome with previous arterial or venous thromboembolism, current-generation mechanical or bioprosthetic aortic heart valve replacement. Note: Patients with mechanical aortic valve replacement and additional risk factors for thromboembolic events (atrial fibrillation, previous thromboembolism, LV dysfunction, hypercoagulable conditions) or an older generation mechanical AVR (i.e., ball in-Cage) or any mechanical MVR should have a INR therapeutic range of 2.5 to 3.5 (target INR of 3). Ela GH, et al. Chest 2012, 141:7S-47S Renny RA, et al. [facility] 2017, 70: 252-289 Performed By: #### 3 4528-0, 68375-3 ####[facility] LABORATORYCLIA [id number] [address] PT Coag (PPP) [Time] 11.8 s Normal 9.7-13.0 [facility] Comment on above: Order Comment: Speci men Type: BLOOD SPECIMEN Performed By: #### 3 4528-0, 57570-2 ####[facility]ORATORYCLIA [id number] [address] THROMBOGRAPH HEPARINASE PANE Filiberto 02-26-2021 Clot angle after addition of heparinase TEG (Bld) [Angle] 74.8 degrees High 47.0-74.0 [facility] Comment on above: Order Comment: Speci men Type: BLOOD SPECIMEN Performed By: #### T EGHPP ####[facility]ORATORYCLIA [id number] [address] Clot Lysis 30 Min post maximum clot amplitude TEG (Bld) [Length fraction] 1.7 % Normal 0.0-8.0 [facility] Comment on above: Order Comment: Speci men Type: BLOOD SPECIMEN Performed By: #### T EGHPP ####[facility]ATORYCLIA [id number] [address] Clotting time after addition of heparinase TEG (Bld) 6.3 minutes Normal 4.0-10.0 [facility] Comment on above: Order Comment: Speci men Type: BLOOD SPECIMEN Performed By: #### T EGHPP ####[facility]ORATORYCLIA [id number] [address] Coagulation index TEG Qn (Bld) 1.2 Normal -4.6-3.2 [facility] Comment on above: Order Comment: Speci men Type: BLOOD SPECIMEN Result Comment: The Coagulation Index, a secondary parameter, is labeled by the underwriting internship as for research use only and is used per the underwriting internship's instructions. Its performance characteristics were determined by [facility]'s [facility] Pathology and Laboratory Medicine [place] in a manner consistent with CLIA requirements. This test has not been cleared by the U.S. Food and Drug Administration. Performed By: #### T EGHPP ####[facility]ORATORYCLIA [id number] [address] Maximum clot firmness after addition of heparinase TEG (Bld) [Length] 63.6 mm Normal 51.0-75.0 [facility] Comment on above: Order Comment: Speci men Type: BLOOD SPECIMEN Performed By: #### T EGHPP ####[facility]ATORYCLIA [id number] [address] THROMBOGRAPH PANELon 09-28-2 021 Clot angle TEG (Bld) [Angle] 13.2 degrees Low 47.0-74.0 [facility] Comment on above: Order Comment: Speci men Type: BLOOD SPECIMEN Performed By: #### T EGPNP ####[facility]ATORYCLIA [id number] [address] Clot Lysis 30 Min post maximum clot amplitude TEG (Bld) [Length fraction] 0.0 % Normal 0.0-8.0 [facility] Comment on above: Order Comment: Speci men Type: BLOOD SPECIMEN Performed By: #### T EGPNP ####[facility]ATORYCLIA [id number] [address] Clotting time TEG (Bld) 52.8 minutes High 4.0-10.0 [facility] Comment on above: Order Comment: Speci men Type: BLOOD SPECIMEN Performed By: #### T EGPNP ####[facility]ORATORYCLIA [id number] [address] STATES OF [facility] Coagulation index TEG Qn (Bld) -40.1 Low -4.6-3.2 [facility] Comment on above: Order Comment: Speci men Type: BLOOD SPECIMEN Result Comment: The Coagulation Index, a secondary parameter, is labeled by the underwriting internship as for research use only and is used per the underwriting internship's instructions. Its performance characteristics were determined by [facility]'s [facility] Pathology and Laboratory Medicine [place] in a manner consistent with CLIA requirements. This test has not been cleared by the U.S. Food and Drug Administration. Performed By: #### T EGPNP ####[facility]ORATORYCLIA [id number] [place] [id number] [place] [facility] Maximum clot firmness TEG (Bld) [Length] 60.5 mm Normal 51.0-75.0 [facility] Comment on above: Order Comment: Speci men Type: BLOOD SPECIMEN Performed By: #### T EGPNP ####[facility]ORATORYCLIA [id number] [place] [id number] [place] XR CHEST 1V FRONTALon 2020 XR CHEST 1V FRONTAL * * *Final Report* * * DATE OF EXAM: Feb 26 2021 2:56PM [id number] [id number] - XR CHEST 1V FRONTAL / PROCEDURE REASON: Evaluate tube, line or lead position * * * * Physician Interpretation * * * * EXAMINATION: CHEST RADIOGRAPH (SINGLE VIEW AP OR PA) CLINICAL HISTORY: Evaluate tube, line or lead position MQ: XC1_5 Comparison: CT chest study 02/23/2021. RESULT: Limitations: Extreme apical lordotic patient positioning. Lines, tubes, and devices: Endotracheal tube in profile with the upper tracheal airway. Enteric tube extending below the diaphragm terminating over the left upper quadrant abdomen. Right internal jugular central venous catheter terminating in profile with the proximal SVC. Midline mediastinal drain. Left-sided thoracostomy tube with the tip terminating in profile with the extreme left lateral costophrenic angle. Overlying cardiac monitoring leads and radiopaque tubing. Lungs and pleura: Similar right-sided upper lobe interstitial opacity, mid to lower lung linear density and lateral lower lung subpleural nodular densities. No pneumothorax. No pleural effusion. Cardiomediastinal silhouette: Limited evaluation of the superior mediastinum secondary to apical lordotic patient positioning. Borderline prominent cardiac silhouette accentuated by portable technique. Other: Interval postoperative change of median sternotomy with sternal stabilization plate and sternotomy wires. IMPRESSION: Right-sided pulmonary parenchymal findings as described above. Correlate with CT chest study findings 02/23/2021. No pneumothorax. Life support equipment as noted. Interval median sternotomy. A stat reading is made available at time of dictation as requested. 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 Transcribe Date/Time: Feb 26 2021 2:58P Dictated by : JAVI LOCKE MD This examination was interpreted and the report reviewed and electronically signed by: JAVI LOCKE MD on Feb 26 2021 3:06PM EST [id number] Normal [facility] aPTT PPPon 02-26-2021 aPTT Coag (PPP) [Time] 43.9 s High 23.0-32.4 [facility] Comment on above: Order Comment: Speci men Type: BLOOD SPECIMEN Performed By: #### 3 4528-0, 49163-2 ####[facility] LABORATORYCLIA [id number] [address] OF [facility] ALLIED HEALTHon 02-25-2021 ALLIED HEALTH HNO ID: [id number] Author: Oneida Catherine Administrative Supervisor Service: Cardiac Rehab Author Type: Administrative Supervisor Type: Allied Health Filed: 02/25/2021 1:11 PM Note Text: CARDIAC REHAB 5 METER WALK TEST SERVICE DATE: 02/25/2021 SERVICE TIME: 1310 ASSESSMENT: 5 Meter Walk Test 5 Meter Walk Test Completed: Yes Trial 1 # of Seconds: 6.03 Trial 1 Assistive Device: IV Pole Trial 2 # of Seconds: 6.54 Trial 2 Assistive Device: IV Pole Trial 3 # of Seconds: 5.95 Trial 3 Assistive Device: IV Pole SIGNATURE: Oneida Catherine Administrative Supervisor PATIENT NAME: Kulwant Andrade DATE: February 25, 2021 TIME: 1:11 PM PAGER/CONTACT #: [phone] Normal [facility] Basic metabolic 2000 panelon 02-25-2021 Anion gap [Moles/Vol] 11 mmol/L Normal 9-18 [facility] Comment on above: Order Comment: Speci men Type: BLOOD SPECIMEN Performed By: #### 2 4321-2, ####[facility]ORATORYCLIA [id number] [place] [address] [place] Calcium [Mass/Vol] 9.0 mg/dL Normal 8.5-10.2 [facility] Comment on above: Order Comment: Speci men Type: BLOOD SPECIMEN Performed By: #### 2 4321-2, ####[facility]ORATORYCLIA [id number] [place] [address] [place] Chloride [Moles/Vol] 106 mmol/L High 97-105 [facility] Comment on above: Order Comment: Speci men Type: BLOOD SPECIMEN Performed By: #### 2 4321-2, ####[facility]ORATORYCLIA [id number] [place] [address] [place] CO2 [Moles/Vol] 23 mmol/L Normal 22-30 [facility] Comment on above: Order Comment: Speci men Type: BLOOD SPECIMEN Performed By: #### 2 4321-2, ####[facility]ORATORYCLIA [id number] [place] [address] [place] Creatinine [Mass/Vol] 1.24 mg/dL High 0.73-1.22 [facility] Comment on above: Order Comment: Speci men Type: BLOOD SPECIMEN Performed By: #### 2 4321-2, ####[facility]ORATORYCLIA [id number] [place] [address] [place] GFR/1.73 sq M.predicted MDRD (S/P/Bld) [Vol rate/Area] mL/min/{1.73_m2} Normal [facility] Comment on above: Order Comment: Speci men Type: BLOOD SPECIMEN Result Comment: 56 eGFR (Estimated GFR) Units of measure: mL/min/1.73 meters squared eGFR is derived from the reexpressed MDRD Study equation using the following parameters: serum creatinine, age, gender and race. The creatinine assay has been calibrated to be traceable to IDMS. An eGFR <60 mL/min/1.73m2 for >3 months is consistent with chronic kidney disease. Refer to KDOQI guidelines for clinical interpretation. In patients with unstable renal function, e.g. those with acute kidney injury, the eGFR may not accurately reflect actual GFR. Performed By: #### 2 432-, ####[facility]ORATORYCLIA [id number] [place] [address] [place] Glucose [Mass/Vol] 92 mg/dL Normal 74-99 [facility] Comment on above: Order Comment: Speci [facility] Type: BLOOD SPECIMEN Result Comment: The [place] Diabetes Association (ADA) provides guidance for cutoff values for fasting glucose and random glucose. The ADA defines fasting as no caloric intake for at least 8 hours. Fasting plasma glucose results between 100 to 125 mg/dL indicate increased risk for diabetes (prediabetes). Fasting plasma glucose results greater than or equal to 126 mg/dL meet the criteria for diagnosis of diabetes. In the absence of unequivocal hyperglycemia, results should be confirmed by repeat testing. In a patient with classic symptoms of hyperglycemia or hyperglycemic crisis, random plasma glucose results greater than or equal to 200 mg/dL meet the criteria for diagnosis of diabetes. Reference: Standards of Medical Care in Diabetes 2016, [place] [employer] Association. Diabetes Care. 2016.39(Suppl 1). Performed By: #### 2 4320-07, ####[facility]ORATORYCLIA [id number] [place] [address] [place] Potassium [Moles/Vol] 3.9 mmol/L Normal 3.7-5.1 [facility] Comment on above: Order Comment: Speci [facility] Type: BLOOD SPECIMEN Performed By: #### 2 432-, ####[facility]ORATORYCLIA [id number] [place] [address] [place] Sodium [Moles/Vol] 140 mmol/L Normal 136-144 [facility] Comment on above: Order Comment: Speci men Type: BLOOD SPECIMEN Performed By: #### 2 432-2, ####[facility]ORATORYCLIA [id number] [place] [address] [facility] Urea nitrogen [Mass/Vol] 19 mg/dL Normal 9-24 [facility] Comment on above: Order Comment: Speci men Type: BLOOD SPECIMEN Performed By: #### 2 432-2, ####[facility] LABORATORYCLIA [id number] [place] [address] [facility] CASE MGT INIT ASSESon 2020 CASE MGT INIT ASSKECIA HNO ID: [id number] Author: Vandana Warren RN Service: Nursing Author Type: Registered Nurse Type: Care Mgt Initial Assessment Filed: 02/25/2021 3:28 PM Note Text: CARE MANAGEMENT: ASSESSMENT AND DISCHARGE PLAN SERVICE DATE: February 25, 2021 SERVICE TIME: 3:25 PM PRIMARY CARE PHYSICIAN: No primary care provider on file. 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 Last discharge within 30 days: No Advance Directive: Current Advance Directive: Health Care Power of Gaming Dealer In Chart: No Health LiteracyHow often do you need to have someone help you when you read instructions, pamphlets, or other written material from your doctor or pharmacy? : 1 - Never How confident are you filling out medical forms by yourself?: 1 - Extremely If Patient scores > 3 on either question, the following interventions were put into place:: Patient did not score > 3 on either question. Baseline Mental Status Prior to this Illness what was the patient's Baseline Mental Status?: Alert AND Oriented Prior to this illness, has anyone described the patient having any of the following behaviors?: Not Applicable Relationship of the informant to the patient:: Self Functional Status: Independent Does Patient Currently Receive Any Community Services or Home Care?: None Equipment Prior to Admission: None Has the Patient Been in a Long Term Facility in the Past 30 days?: No SOCIAL: Living Arrangements: Home Lives With: Alone Financial Resources: Retired Primary Contact: Extended Emergency Contact Information Primary Emergency Contact: luna martinez Relation: Daughter Supportive Patient Contact:: Yes Contact Resources: Family Family Name/Phone: Luna teixeira Caregiver AssessmentCaregiver is ready, willing and able to meet the patient's needs as recommended by the inter-professional team:: No Caregiver needed Does the patient have an acute stroke diagnosis, or has the patient had a stroke during this admission?: No Patient's transition needs and plan for meeting these needs: Home with [facility] after CABG Patient's perception of need for this admission: need CABG Medication Adherance I am convinced of the importance of my prescription medication: 0 - Agree Completely I worry that my prescription medication will do more harm than good to me : 0 - Disagree Completely I feel financially burdened by my [id number] expenses for my prescription medication:: 0 - Disagree Completely Risk Score: 0 Patient is categorized as: Low risk < 2 Are you interested in bedside delivery of your medications? No Is Patient Psychosocially Complex?: No ASSESSMENT AND PLAN: Medical Needs: Medical Needs: None Psychosocial Needs: Psychosocial Needs: None FREEDOM OF CHOICE EXPLAINED: [place] of Choice Given: No Reason Not Given: Unable to complete with this assessment - revisit POTENTIAL TRANSITION PLANS Home;Home Care Patient from home alone, lives next door to lluvia Carrasco. 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 Patient admitted after heart cath needing CABG. OR scheduled for 02/26/2021. +PCP (precise winder is Dr. Michelle in [place]) +Rx ([facility]) Plan at discharge is for patient to return home with [facility]. Family will transport patient home. Patient will need PT/OT evals postoperatively. SIGNATURE: Vandana Warren RN PATIENT NAME: Kulwant Andrade DATE: February 25, 2021 TIME: 3:25 PM PAGER/CONTACT #: [phone] Normal [facility] CBC panel Auto (Bld)on 02-25 Erythrocyte distribution width (RBC) [Ratio] 12.4 % Normal 11.5-15.0 [facility] Comment on above: Order Comment: Speci men Type: BLOOD SPECIMEN Performed By: #### 5 8410-2 ####[facility] LABORATORYCLIA [id number] [address] Hematocrit (Bld) [Volume fraction] 40.0 % Normal 39.0-51.0 [facility] [facility] Comment on above: Order Comment: Speci men Type: BLOOD SPECIMEN Performed By: #### 5 8410-2 ####[facility]ORYCLIA [id number] [address] Hemoglobin (Bld) [Mass/Vol] 13.2 g/dL Normal 13.0-17.0 [facility] Comment on above: Order Comment: Speci men Type: BLOOD SPECIMEN Performed By: #### 5 8410-2 ####[facility]ORYCLIA [id number] [address] MCH (RBC) [Entitic mass] 31.4 pg Normal 26.0-34.0 [facility] Comment on above: Order Comment: Speci men Type: BLOOD SPECIMEN Performed By: #### 5 8410-2 ####[facility]ORATORYCLIA [id number] [address] MCHC (RBC) [Mass/Vol] 33.0 g/dL Normal 30.5-36.0 [facility] Comment on above: Order Comment: Speci men Type: BLOOD SPECIMEN Performed By: #### 5 8410-2 ####[facility] LABORATORYCLIA [id number] [address] MCV (RBC) [Entitic vol] 95.0 fL Normal 80.0-100.0 [facility] Comment on above: Order Comment: Speci men Type: BLOOD SPECIMEN Performed By: #### 5 8410-2 ####[facility]ORYCLIA [id number] [address] Nucleated RBC (Bld) [#/Vol] 10*3/uL Normal <0.01 [facility] Comment on above: Order Comment: Speci men Type: BLOOD SPECIMEN Performed By: #### 5 8410-2 ####[facility] LABORATORYCLIA [id number] [address] Platelet mean volume (Bld) [Entitic vol] 9.7 fL Normal 9.0-12.7 [facility] Comment on above: Order Comment: Speci men Type: BLOOD SPECIMEN Performed By: #### 5 8410-2 ####[facility]ATORYCLIA [id number] [address] Platelets (Bld) [#/Vol] 260 10*3/uL Normal 150-400 [facility] Comment on above: Order Comment: Speci men Type: BLOOD SPECIMEN Performed By: #### 5 8410-2 ####[facility]ATORYCLIA [id number] [address] RBC (Bld) [#/Vol] 4.21 10*6/uL Normal 4.20-6.00 [facility] Comment on above: Order Comment: Speci men Type: BLOOD SPECIMEN Performed By: #### 5 8410-2 ####[facility] LABORATORYCLIA [id number] [address] WBC (Bld) [#/Vol] 6.66 10*3/uL Normal 3.70-11.00 [facility] Comment on above: Order Comment: Speci men Type: BLOOD SPECIMEN Performed By: #### 5 8410-2 ####[facility] LABORATORYCLIA [id number] [address] Guera 02-25-2021 EDWARDN Telephone (AGVASLESLYE) ARNIEKULWANT ([id number]) 1940 M Date Time Provider Department 02/25/21 TODD GREWAL During your visit today, we recorded the following information about you: Allergies As of Date: 02/25/2021 Noted Allergy Reaction AMOXICILLIN 11/25/2020 9 - Itching AMOXICILLIN-POT CLAVULANATE 08/28/2010 9 - Itching ATORVASTATIN 08/28/2010 5 - Intolerance CLAVULANIC ACID 11/25/2020 9 - Itching FENOFIBRATE 08/28/2010 17 - Myalgia LEVOFLOXACIN 08/28/2010 16 - Unknown ERYTHROMYCIN 04/15/2005 4 - Hives Date Reviewed: 02/25/2021 Reviewed by: Josefa Davis RN - Fully Assessed Reason for Visit: Orders [681] Primary Visit Diagnosis:Coronary artery disease involving hughes coronary artery of hughes heart without angina pectoris [I25.10] Order(s):SURGICAL REQUEST - ELECTIVE (12/2019) [1936218] Order #: [id number]: 1 Prescriptions as of 02/25/2021 - famotidine (PEPCID) 40 mg tablet Take 40 mg by mouth once daily. - metoprolol tartrate, short acting, (LOPRESSOR) 25 mg tablet Take 25 mg by mouth twice daily. - acetaminophen/diphenhyd ramine (TYLENOL PM EXTRA STRENGTH ORAL) Take 2 tablets by mouth as needed. - Cholecalciferol, Vitamin D3, 125 mcg (5,000 unit) cap Take 5,000 Units by mouth once daily. - spironolactone (ALDACTONE) 25 mg tablet Take 25 mg by mouth once daily. - omeprazole (PRILOSEC) 20 mg capsule TAKE 1 CAPSULE BY MOUTH EVERY DAY 30 MINUTES BEFORE A MEAL - lisinopril (ZESTRIL, PRINIVIL) 20 mg tablet Take 20 mg by mouth once daily. - levothyroxine (SYNTHROID) 75 mcg tablet Take 75 mcg by mouth daily before breakfast. Facility-Administered Medications as of 02/25/2021 - lactated ringers iv infusion - acetaminophen 1,000 mg tab(s) (TYLENOL) - aspirin 81 mg chewable tab(s) - Chlorhexidine Gluconate 0.12 % 15 mL (PERIDEX) - heparin iv infusion (LOW DOSE ACS/NOMOGRAM) 25,000 units in NaCl 0.45% 250 mL PREMIX - heparin RATE CHANGE bolus 1,000-4,000 Units for subtherapeutic aptt results - levothyroxine 75 mcg tab(s) (SYNTHROID) - famotidine 40 mg tab(s) (PEPCID) - metoprolol tartrate (short acting) 12.5 mg tab(s) (LOPRESSOR) - sodium chloride 0.9 % (flush) 2-10 mL (BD POSIFLUSH) - nitroglycerin sublingual 0.4 mg tab(s) (NITROQUICK) - NaCl 0.9% iv flush bag - sodium chloride 0.9 % (flush) 3-5 mL (BD POSIFLUSH) - pantoprazole DR 20 mg tab(s) (PROTONIX) - atorvastatin 40 mg tab(s) (LIPITOR) - mupirocin 2 % 0.5 g ointment (BACTROBAN) Problem List As Of Date 02/25/2021 Noted Resolved HYPERLIPIDEMIA NEC/NOS [E78.5] BENIGN HYPERTENSION [I10] PLANTAR NERVE LESION [G57.60] 04/15/2005 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 Comment on above: Order Comment: Speci men Type: BLOOD SPECIMEN Performed By: #### 2 2096-4, 23006-9 ####[facility]ORATORYCLIA [id number] [address] NUTRITIONon 02-25-2021 NUTRITION HNO ID: [id number] Author: Kiera Valdez RD Service: Nutrition Therapy Author Type: Registered Dietitian Type: Nutrition Filed: 02/25/2021 2:51 PM Note Text: NUTRITION THERAPY INITIAL ASSESSMENT SERVICE DATE: 02/25/2021 SERVICE TIME: 12:20 Nutrition Assessment: Recommended Malnutrition Diagnosis: No Malnutrition Identified Nutrition Diagnosis: Problem: Increased nutrient needs Related to: Acute illness (upcoming CABG) As evidenced by: Medical condition Estimated kilocalorie needs: 4061-2990 Calorie Calculation Method: 25-30 kcals/kg Estimated protein needs (grams): 89-112 Grams protein determined by: 1.2 - 1.5 g/kg Care Plan: Continue current diet Supplements: Ensure Max (BID) Diet education provided at visit Monitor and Evaluation: Meet greater than 75% of estimated needs;Monitor bowel function;Monitor fluid/electrolyte balance;Monitor labs, I/Os, vital signs, weight Discharge Recommendations: Diet Diet: Heart healthy HPI: 80 year old male with history chronic cholecystitis, HTN, HLD, cardiomyopathy, CAD, and recent Legionnaire's disease presenting with SOB, BLE edema. CTS consulted, planning for CABG. Intake History: Nutrition Intake Prior to Admission: Greater than 75% estimated energy needs greater than or equal to 1 month (great appetite. Goes camping with girlfriend, good appetite but not the healthiest choices. Did discuss this at visit, provided written materials.) Diet Orders (From admission, onward) Start Ordered 02/26/21 0001 DIET NPO AFTER MIDNIGHT 02/25/21 0858 02/25/21 1330 DIET SUPPLEMENTS START NOW Question Answer Comment Supplement 1 ENSURE MAX CHOCOLATE Supplement 1 Frequency 1. BREAKFAST Supplement 1 Frequency 5. DINNER 02/25/21 1325 02/23/21 0600 DIET HEART HEALTHY START NOW Question: Heart Healthy Answer: 2 GM SODIUM (LOW SAT FAT) 02/23/21 0554 Anthropometrics: Height: 182.9 cm (6') Weight: 74.3 kg (163 lb 12.8 oz) Dosing Weight: 74.3 kg (163 lb 12.8 oz) Usual Weight: 77.1 kg (170 lb) (with shoes) Body mass index is 22.22 kg/m?. Weight change percentage over time: Patient reports he lost 22 lbs beginning of this year d/t acute illness. Has put weight back on and stayed in his range. Does not like to go above 170 lbs. Physical Exam: Subcutaneous fat loss: No fat loss Muscle loss: No muscle loss Potential micronutrient deficiency: No deficiency identified Edema/Ascites: Lower extremities Lower Extermity: Mild 1+ GI Symptoms: None Functional Status: No Change Potential Signs of Inflammation: Chronic condition MNT Billing Type: Initial Assess/15 min 1 unit SIGNATURE: Kiera Valdez RD PATIENT NAME: Kulwant Andrade DATE: February 25, 2021 TIME: 12:20 PM PAGER: [phone] [facility] PT EDon 02-25-2021 PT ED HNO ID: [id number] Author: Kiera Valdez RD Service: Nutrition Therapy Author Type: Registered Dietitian Type: Patient Education Filed: 02/25/2021 2:53 PM Note Text: NUTRITION THERAPY PATIENT EDUCATION SERVICE DATE: 02/25/2021 SERVICE TIME: 12:20 TOPIC: Diet: Heart Healthy LEARNING ASSESSMENT Individuals Assessed: Patient Preferred Learning Method: : Individual Instruction, Verbal Instruction and Written Instruction Barriers to Learning: : None Evident LEARNING RESPONSE Instruction Provided to: Patient Patient / Family Response: Recommend Cont. Instruction, did provide information but was very scattered discussion - would benefit from reinforcement Method of Instruction: Individual instruction Material(s) Provided to Patient: Healthy Lunch/Dinner Plate Follow-Up Plan: Reinforce - Repeat previous content Referral (Recommendation): Nutrition - Inpatient MNT Billing: Initial Assess/15 min 1 unit SIGNATURE: Kiera Valdez RD PATIENT NAME: Kulwant Andrade DATE: February 25, 2021 TIME: 2:51 PM PAGER: [phone] [facility] TYPE AND SCREENon 02-25-2021 ABO O [facility] Comment on above: Order Comment: Speci men Type: BLOOD SPECIMEN Performed By: #### T SCR #### [facility] CLIA [id number] [address] [place] HISTORICAL AB SCR STATUS Negative [facility] Comment on above: Order Comment: Speci men Type: BLOOD SPECIMEN Performed By: #### T SCR #### [facility] CLIA [id number] [address] Rh Nom (Bld) Positive Normal [facility] Comment on above: Order Comment: Speci men Type: BLOOD SPECIMEN Performed By: #### T SCR #### [facility] CLIA [id number] [address] TYPE AND SCREEN EXPIRATION 02/28/2021 23:59 Normal [facility] Comment on above: Order Comment: Speci men Type: BLOOD SPECIMEN Performed By: #### T SCR #### [facility] CLIA [id number] [address] UA WITH CULTURE IF INDICATED on 02-25-2021 Bacteria LM.HPF (Urine sed) [#/Area] None Seen Normal None Seen [facility] Comment on above: Order Comment: Speci men Type: URINE SPECIMEN Performed By: #### U ACII ####[facility]ORATORYCLIA [id number] [address] Bilirubin Ql (U) Detected Abnormal Negative [facility] Comment on above: Order Comment: Speci men Type: URINE SPECIMEN Performed By: #### U ACII ####[facility]ATORYCLIA [id number] [address] Clarity (Unsp spec) Clear Normal Clear [facility] Comment on above: Order Comment: Speci men Type: URINE SPECIMEN Performed By: #### U ACII ####[facility]ATORYCLIA [id number] [address] Color (U) Yellow Normal Yellow [facility] Comment on above: Order Comment: Speci men Type: URINE SPECIMEN Performed By: #### U ACII ####[facility]ATORYCLIA [id number] [address] Epithelial cells LM.HPF (Urine sed) [#/Area] 0.3 /[HPF] Normal [facility] Comment on above: Order Comment: Speci men Type: URINE SPECIMEN Performed By: #### U ACII ####[facility]ATORYCLIA [id number] [place], [place] [id number] [place] [address] Glucose Test strip (U) [Mass/Vol] Negative Normal Negative [facility] Comment on above: Order Comment: Speci men Type: URINE SPECIMEN Performed By: #### U ACII ####[facility]ORATORYCLIA [id number] [address] Hemoglobin Ql (U) Negative Normal Negative [facility] Comment on above: Order Comment: Speci men Type: URINE SPECIMEN Performed By: #### U ACII ####[facility]ATORYCLIA [id number] [address] Hyaline casts (Urine sed) [#/Area] 0 /[LPF] Normal 0 /LPF [facility] Comment on above: Order Comment: Speci men Type: URINE SPECIMEN Performed By: #### U ACII ####[facility]ORATORYCLIA [id number] [address] Ketones Ql (U) Negative Normal Negative [facility] Comment on above: Order Comment: Speci men Type: URINE SPECIMEN Performed By: #### U ACII ####[facility]ATORYCLIA [id number] [address] Leukocyte esterase Test strip Ql (U) Negative Normal Negative [facility] Comment on above: Order Comment: Speci men Type: URINE SPECIMEN Performed By: #### U ACII ####[facility]ORATORYCLIA [id number] [address] OF [facility] Nitrite Ql (U) Negative Normal Negative [facility] Comment on above: Order Comment: Speci men Type: URINE SPECIMEN Performed By: #### U ACII ####[facility]ATORYCLIA [id number] [address] pH (U) 6.0 [pH] Normal 5.0-8.0 [facility] Comment on above: Order Comment: Speci men Type: URINE SPECIMEN Performed By: #### U ACII ####[facility]ATORYCLIA [id number] [address] Protein (U) [Mass/Vol] Negative Normal Negative [facility] Comment on above: Order Comment: Speci men Type: URINE SPECIMEN Performed By: #### U ACII ####[facility]ORYCLIA [id number] [address] RBC LM.HPF (Urine sed) [#/Area] 0-3 /HPF Normal 0-3 /HPF [facility] Comment on above: Order Comment: Speci men Type: URINE SPECIMEN Performed By: #### U ACII ####[facility]ATORYCLIA [id number] [address] Specific gravity (U) [Rel density] 1.024 Normal 1.005-1.03 0 [facility] Comment on above: Order Comment: Speci men Type: URINE SPECIMEN Performed By: #### U ACII ####[facility]ORYCLIA [id number] [address] Urobilinogen Ql (U) 1.0 EU/dL Normal 0.2-1.0 EU/dL [facility] Comment on above: Order Comment: Speci men Type: URINE SPECIMEN Performed By: #### U ACII ####[facility]ORYCLIA [id number] [address] WBC LM.HPF (Urine sed) [#/Area] 0-5 /HPF Normal 0-5 /HPF [facility] Comment on above: Order Comment: Speci men Type: URINE SPECIMEN Performed By: #### U ACII ####[facility]ATORYCLIA [id number] [address] aPTT PPPon 02-25-2021 aPTT Coag (PPP) [Time] 56.5 s High 23.0-32.4 [facility] Comment on above: Order Comment: Speci men Type: BLOOD SPECIMEN Performed By: #### 1 4979-9 ####[facility]ATORYCLIA [id number] [address] [place] Basic metabolic 2000 panelon 02-24-2021 Anion gap [Moles/Vol] 10 mmol/L Normal 9-18 [facility] Comment on above: Order Comment: Speci men Type: BLOOD SPECIMEN Performed By: #### 2 4321-2 ####[facility]ORYCLIA [id number] [address] Calcium [Mass/Vol] 8.9 mg/dL Normal 8.5-10.2 [facility] Comment on above: Order Comment: Speci men Type: BLOOD SPECIMEN Performed By: #### 2 4321-2 ####[facility]ATORYCLIA [id number] [address] STATES OF [facility] Chloride [Moles/Vol] 107 mmol/L High 97-105 [facility] Comment on above: Order Comment: Speci men Type: BLOOD SPECIMEN Performed By: #### 2 4321-2 ####[facility]ATORYCLIA [id number] [address] [place] CO2 [Moles/Vol] 24 mmol/L Normal 22-30 [facility] Comment on above: Order Comment: Speci men Type: BLOOD SPECIMEN Performed By: #### 2 4321-2 ####[facility]ATORYCLIA [id number] [address] [place] Creatinine [Mass/Vol] 1.06 mg/dL Normal 0.73-1.22 [facility] Comment on above: Order Comment: Speci men Type: BLOOD SPECIMEN Performed By: #### 2 4321-2 ####[facility]ATORYCLIA [id number] [place] [address] [place] GFR/1.73 sq M.predicted MDRD (S/P/Bld) [Vol rate/Area] mL/min/{1.73_m2} Normal [facility] Comment on above: Order Comment: Speci men Type: BLOOD SPECIMEN Result Comment: >60 eGFR (Estimated GFR) Units of measure: mL/min/1.73 meters squared eGFR is derived from the reexpressed MDRD Study equation using the following parameters: serum creatinine, age, gender and race. The creatinine assay has been calibrated to be traceable to IDMS. An eGFR <60 mL/min/1.73m2 for >3 months is consistent with chronic kidney disease. Refer to KDOQI guidelines for clinical interpretation. In patients with unstable renal function, e.g. those with acute kidney injury, the eGFR may not accurately reflect actual GFR. Performed By: #### 2 4321-2 ####[facility]ITALCLIA [id number] [place] [address] [place] Glucose [Mass/Vol] 96 mg/dL Normal 74-99 [facility] Comment on above: Order Comment: Speci men Type: BLOOD SPECIMEN Result Comment: The [place] Diabetes Association (ADA) provides guidance for cutoff values for fasting glucose and random glucose. The ADA defines fasting as no caloric intake for at least 8 hours. Fasting plasma glucose results between 100 to 125 mg/dL indicate increased risk for diabetes (prediabetes). Fasting plasma glucose results greater than or equal to 126 mg/dL meet the criteria for diagnosis of diabetes. In the absence of unequivocal hyperglycemia, results should be confirmed by repeat testing. In a patient with classic symptoms of hyperglycemia or hyperglycemic crisis, random plasma glucose results greater than or equal to 200 mg/dL meet the criteria for diagnosis of diabetes. Reference: Standards of Medical Care in Diabetes 2016, [place] [employer]. Diabetes Care. 2016.39(Suppl 1). Performed By: #### 2 4321-2 ####[facility]ATORYCLIA [id number] [address] [place] Potassium [Moles/Vol] 4.0 mmol/L Normal 3.7-5.1 [facility] Comment on above: Order Comment: Speci [facility] Type: BLOOD SPECIMEN Performed By: #### 2 4321-2 ####[facility]ORYCLIA [id number] [address] Sodium [Moles/Vol] 141 mmol/L Normal 136-144 [facility] Comment on above: Order Comment: Speci men Type: BLOOD SPECIMEN Performed By: #### 2 4321-2 ####[facility]ORYCLIA [id number] [address] Urea nitrogen [Mass/Vol] 18 mg/dL Normal 9-24 [facility] Comment on above: Order Comment: Speci men Type: BLOOD SPECIMEN Performed By: #### 2 4321-2 ####[facility]ORYCLIA [id number] [address] CBC panel Auto (Bld)on 02-24 Erythrocyte distribution width (RBC) [Ratio] 12.4 % Normal 11.5-15.0 [facility] Comment on above: Order Comment: Speci men Type: BLOOD SPECIMEN Performed By: #### 5 8410-2 ####[facility]ORYCLIA [id number] [address] Hematocrit (Bld) [Volume fraction] 40.2 % Normal 39.0-51.0 [facility] Comment on above: Order Comment: Speci men Type: BLOOD SPECIMEN Performed By: #### 5 8410-2 ####[facility]ORYCLIA [id number] [address] Hemoglobin (Bld) [Mass/Vol] 13.0 g/dL Normal 13.0-17.0 [facility] Comment on above: Order Comment: Speci men Type: BLOOD SPECIMEN Performed By: #### 5 8410-2 ####[facility]ORYCLIA [id number] [address] MCH (RBC) [Entitic mass] 30.7 pg Normal 26.0-34.0 [facility] Comment on above: Order Comment: Speci men Type: BLOOD SPECIMEN Performed By: #### 5 8410-2 ####[facility]ORYCLIA [id number] [address] MCHC (RBC) [Mass/Vol] 32.3 g/dL Normal 30.5-36.0 [facility] Comment on above: Order Comment: Speci men Type: BLOOD SPECIMEN Performed By: #### 5 8410-2 ####[facility]ORYCLIA [id number] [address] MCV (RBC) [Entitic vol] 94.8 fL Normal 80.0-100.0 [facility] Comment on above: Order Comment: Speci men Type: BLOOD SPECIMEN Performed By: #### 5 8410-2 ####[facility]ORYCLIA [id number] [address] Nucleated RBC (Bld) [#/Vol] 10*3/uL Normal <0.01 [facility] Comment on above: Order Comment: Speci men Type: BLOOD SPECIMEN Performed By: #### 5 8410-2 ####[facility]ORYCLIA [id number] [address] Platelet mean volume (Bld) [Entitic vol] 9.7 fL Normal 9.0-12.7 [facility] Comment on above: Order Comment: Speci men Type: BLOOD SPECIMEN Performed By: #### 5 8410-2 ####[facility]ORYCLIA [id number] [address] Platelets (Bld) [#/Vol] 243 10*3/uL Normal 150-400 [facility] Comment on above: Order Comment: Speci men Type: BLOOD SPECIMEN Performed By: #### 5 8410-2 ####[facility]ORYCLIA [id number] [address] RBC (Bld) [#/Vol] 4.24 10*6/uL Normal 4.20-6.00 [facility] Comment on above: Order Comment: Speci men Type: BLOOD SPECIMEN Performed By: #### 5 8410-2 ####[facility]ORYCLIA [id number] [place] [address] [place] [facility] WBC (Bld) [#/Vol] 5.65 10*3/uL Normal 3.70-11.00 [facility] Comment on above: Order Comment: Speci men Type: BLOOD SPECIMEN Performed By: #### 5 8410-2 ####[facility]ORYCLIA [id number] [place] [address] [facility] CONSULTon 02-24-2021 CONSULT HNO ID: [id number] Author: Todd Grewal MD Service: Cardiac Surgery Author Type: Physician Type: Consults Filed: 02/25/2021 3:31 PM Note Text: CARDIOTHORACIC SURGERY CONSULT / HANDP SERVICE DATE: 02/24/2021 SERVICE TIME: 242 Subjective PRIMARY SERVICE: Cardiothoracic Surgery CHIEF COMPLAINT: Symptomatic severe multivessel coronary disease HPI: This is a 80 year old man transferred from [facility] after left heart catheterization for evaluation of symptomatic severe multivessel coronary artery disease and for consideration of bypass surgery. In October of this year he developed myalgias, fever, dyspnea, fatigue, dry cough, and loss of taste. He was admitted with acute hypoxic respiratory failure on the basis of multilobar pneumonia. He was diagnosed with Legionella pneumonia, complicated by acute renal insufficiency (creatinine 2.37) with evidence of sepsis (lactate level 3.8). He ruled out for Covid infection. CT of the chest showed dense consolidation in the posterior segment of the right upper lobe abutting the major fissure and patchy infiltrate in right lower lobe with a small right pleural effusion. Bronchoscopy with BAL was performed showing normal anatomy and no lesions. I do not have results of BAL at this time. He has noted since that time he has had exertional dyspnea. He denies chest pressure, heaviness, burning, syncope, presyncope etc. Stress testing was performed in October which was abnormal, showing decreased perfusion status post stress in the distal inferolateral lateral apical segments; ejection fraction is 83%. 2D echo performed at that time showed normal left ventricular function with no valve abnormalities. Left heart catheterization now shows severe multivessel coronary disease including approximately 90% lesions in the proximal RCA, proximal LAD, and proximal circumflex. He has no previous history of heart attack. There is a vague history of cardiomyopathy in the past. Is undergone some sort of ablation at [facility] in the remote past but does not carry history of atrial fibrillation and is not anticoagulated. There is a vague history of a positive rheumatologic work up, possible SLE. He had been on prednisone 60 mg daily, as of October, but is no longer on immunosuppression. PAST MEDICAL HISTORY Diagnosis Date - Chronic cholecystitis - Essential hypertension, benign - Myalgia and myositis, unspecified - Other and unspecified hyperlipidemia PAST SURGICAL HISTORY Procedure Laterality Date - EXPLORATORY OF ABDOMEN Laparotomy, exp - LAPAROSCOPIC CHOLECYSTECTOMY 05/03/07 - PAST SURGICAL HISTORY OF back surgery - PAST SURGICAL HISTORY OF excision of kidney tumor FAMILY HISTORY Problem Relation Age of Onset - Breast Cancer Sister x3 - Cancer Sister x2 lung - Cancer Brother appendix Social History Tobacco Use - Smoking status: Never Smoker - Smokeless tobacco: Never Used Substance Use Topics - Alcohol use: No - Drug use: Not on file famotidine (PEPCID) 40 mg tablet, Take 40 mg by mouth once daily., Disp: , Rfl: metoprolol tartrate, short acting, (LOPRESSOR) 25 mg tablet, Take 25 mg by mouth twice daily., Disp: , Rfl: Cholecalciferol, Vitamin D3, 125 mcg (5,000 unit) cap, Take 5,000 Units by mouth once daily., Disp: , Rfl: levothyroxine (SYNTHROID) 75 mcg tablet, Take 75 mcg by mouth daily before breakfast., Disp: , Rfl: acetaminophen/diphenhyd ramine (TYLENOL PM EXTRA STRENGTH ORAL), Take 2 tablets by mouth as needed., Disp: , Rfl: spironolactone (ALDACTONE) 25 mg tablet, Take 25 mg by mouth once daily., Disp: , Rfl: omeprazole (PRILOSEC) 20 mg capsule, TAKE 1 CAPSULE BY MOUTH EVERY DAY 30 MINUTES BEFORE A MEAL, Disp: , Rfl: lisinopril (ZESTRIL, PRINIVIL) 20 mg tablet, Take 20 mg by mouth once daily., Disp: , Rfl: famotidine (PEPCID) 40 mg tablet, Take 40 mg by mouth once daily. metoprolol tartrate, short acting, (LOPRESSOR) 25 mg tablet, Take 25 mg by mouth twice daily. Cholecalciferol, Vitamin D3, 125 mcg (5,000 unit) cap, Take 5,000 Units by mouth once daily. levothyroxine (SYNTHROID) 75 mcg tablet, Take 75 mcg by mouth daily before breakfast. acetaminophen/diphenhyd ramine (TYLENOL PM EXTRA STRENGTH ORAL), Take 2 tablets by mouth as needed. spironolactone (ALDACTONE) 25 mg tablet, Take 25 mg by mouth once daily. omeprazole (PRILOSEC) 20 mg capsule, TAKE 1 CAPSULE BY MOUTH EVERY DAY 30 MINUTES BEFORE A MEAL lisinopril (ZESTRIL, PRINIVIL) 20 mg tablet, Take 20 mg by mouth once daily. ALLERGIES Allergen Reactions - Amoxicillin Itching - Amoxicillin-Pot Cla* Itching - Atorvastatin Intolerance - Clavulanic Acid Itching - Fenofibrate Myalgia - Levofloxacin Unknown - Erythromycin Hives REVIEW OF SYSTEMS: as above, Currently, no fever, chills, nausea, vomiting, diarrhea, cough, sputum, stroke,m COPD, hepatic disease, cancer, etc. Objective PHYSICAL EXAM: (more content not included)... Normal [facility] THERAPY NTon 02-24-2021 THERAPY NT HNO ID: [id number] Author: Merced Dumont WHEEL FITTER Service: Respiratory Therapy Author Type: Respiratory Therapist Type: Therapy (PT/OT/Speech/Resp) Filed: 02/24/2021 9:18 AM Note Text: Summary: Bedside Spirometry Patient bedside spirometry completed. Copy left in patient chart. Normal [facility] aPTT PPPon 02-24-2021 aPTT Coag (PPP) [Time] 57.3 s High 23.0-32.4 [facility] Comment on above: Order Comment: Speci men Type: BLOOD SPECIMEN Performed By: #### 1 4979-9 ####[facility] [id number] [address] aPTT Coag (PPP) [Time] 63.5 s High 23.0-32.4 [facility] Comment on above: Order Comment: Speci men Type: BLOOD SPECIMEN Performed By: #### 1 4979-9 ####[facility] [id number] [address] aPTT Coag (PPP) [Time] 72.3 s High 23.0-32.4 [facility] Comment on above: Order Comment: Speci men Type: BLOOD SPECIMEN Performed By: #### 1 4979-9 ####[facility] [id number] [address] CBC W Auto Differential pane l (Bld)on 02-23-2021 Basophils (Bld) [#/Vol] 0.04 10*3/uL Normal <0.11 [facility] Comment on above: Order Comment: Speci men Type: BLOOD SPECIMEN Performed By: #### 5 7021-8 ####[facility] [id number] [address] Basophils/100 WBC (Bld) 0.6 % Normal [facility] Comment on above: Order Comment: Speci men Type: BLOOD SPECIMEN Performed By: #### 5 7021-8 ####[facility]ORYCLIA [id number] [address] Differential cell count method Nom (Bld) Auto Normal [facility] Comment on above: Order Comment: Speci men Type: BLOOD SPECIMEN Performed By: #### 5 7021-8 ####[facility]ORYCLIA [id number] [address] STATES OF [facility] Eosinophils (Bld) [#/Vol] 0.08 10*3/uL Normal <0.46 [facility] Comment on above: Order Comment: Speci men Type: BLOOD SPECIMEN Performed By: #### 5 7021-8 ####[facility] [id number] [address] Eosinophils/100 WBC (Bld) 1.2 % Normal [facility] Comment on above: Order Comment: Speci men Type: BLOOD SPECIMEN Performed By: #### 5 7021-8 ####[facility] [id number] [address] Erythrocyte distribution width (RBC) [Ratio] 12.3 % Normal 11.5-15.0 [facility] Comment on above: Order Comment: Speci men Type: BLOOD SPECIMEN Performed By: #### 5 7021-8 ####[facility] [id number] [address] Hematocrit (Bld) [Volume fraction] 40.1 % Normal 39.0-51.0 [facility] Comment on above: Order Comment: Speci men Type: BLOOD SPECIMEN Performed By: #### 5 7021-8 ####[facility] [id number] [address] Hemoglobin (Bld) [Mass/Vol] 13.3 g/dL Normal 13.0-17.0 [facility] Comment on above: Order Comment: Speci men Type: BLOOD SPECIMEN Performed By: #### 5 7021-8 ####[facility] [id number] [address] IMMATURE GRAN % 0.3 % Normal [facility] Comment on above: Order Comment: Speci men Type: BLOOD SPECIMEN Performed By: #### 5 7021-8 ####[facility] [id number] [address] IMMATURE GRAN ABS <0.03 Normal <0.10 [facility] Comment on above: Order Comment: Speci men Type: BLOOD SPECIMEN Performed By: #### 5 7021-8 ####[facility] [id number] [address] Lymphocytes (Bld) [#/Vol] 1.05 10*3/uL Normal 1.00-4.00 [facility] Comment on above: Order Comment: Speci men Type: BLOOD SPECIMEN Performed By: #### 5 7021-8 ####[facility] [id number] [address] Lymphocytes/100 WBC (Bld) 15.2 % Normal [facility] Comment on above: Order Comment: Speci men Type: BLOOD SPECIMEN Performed By: #### 5 7021-8 ####[facility]CLIA [id number] [address] MCH (RBC) [Entitic mass] 31.5 pg Normal 26.0-34.0 [facility] Comment on above: Order Comment: Speci men Type: BLOOD SPECIMEN Performed By: #### 5 7021-8 ####[facility]ORYCLIA [id number] [address] MCHC (RBC) [Mass/Vol] 33.2 g/dL Normal 30.5-36.0 [facility] Comment on above: Order Comment: Speci men Type: BLOOD SPECIMEN Performed By: #### 5 7021-8 ####[facility]ORYCLIA [id number] [address] MCV (RBC) [Entitic vol] 95.0 fL Normal 80.0-100.0 [facility] Comment on above: Order Comment: Speci men Type: BLOOD SPECIMEN Performed By: #### 5 7021-8 ####[facility]ORYCLIA [id number] [address] Monocytes (Bld) [#/Vol] 0.58 10*3/uL Normal <0.87 [facility] Comment on above: Order Comment: Speci men Type: BLOOD SPECIMEN Performed By: #### 5 7021-8 ####[facility]ORYCLIA [id number] [address] Monocytes/100 WBC (Bld) 8.4 % Normal [facility] Comment on above: Order Comment: Speci men Type: BLOOD SPECIMEN Performed By: #### 5 7021-8 ####[facility]ORYCLIA [id number] [address] Neutrophils (Bld) [#/Vol] 5.16 10*3/uL Normal 1.45-7.50 [facility] Comment on above: Order Comment: Speci men Type: BLOOD SPECIMEN Performed By: #### 5 7021-8 ####[facility]ORYCLIA [id number] [address] Neutrophils/100 WBC (Bld) 74.3 % Normal [facility] Comment on above: Order Comment: Speci men Type: BLOOD SPECIMEN Performed By: #### 5 7021-8 ####[facility]ORYCLIA [id number] [address] Nucleated RBC (Bld) [#/Vol] 10*3/uL Normal <0.01 [facility] Comment on above: Order Comment: Speci men Type: BLOOD SPECIMEN Performed By: #### 5 7021-8 ####[facility]ORYCLIA [id number] [address] Nucleated RBC/100 WBC (Bld) [Ratio] 0.0 /100 WBC Normal 0.0 [facility] Comment on above: Order Comment: Speci men Type: BLOOD SPECIMEN Performed By: #### 5 7021-8 ####[facility]ORYCLIA [id number] [address] Platelet mean volume (Bld) [Entitic vol] 9.6 fL Normal 9.0-12.7 [facility] Comment on above: Order Comment: Speci men Type: BLOOD SPECIMEN Performed By: #### 5 7021-8 ####[facility]ORYCLIA [id number] [address] OF [facility] Platelets (Bld) [#/Vol] 245 10*3/uL Normal 150-400 [facility] Comment on above: Order Comment: Speci men Type: BLOOD SPECIMEN Performed By: #### 5 7021-8 ####[facility]CL[facility] [id number] [address] RBC (Bld) [#/Vol] 4.22 10*6/uL Normal 4.20-6.00 [facility] Comment on above: Order Comment: Speci men Type: BLOOD SPECIMEN Performed By: #### 5 7021-8 ####[facility] [id number] [address] WBC (Bld) [#/Vol] 6.93 10*3/uL Normal 3.70-11.00 [facility] Comment on above: Order Comment: Speci men Type: BLOOD SPECIMEN Performed By: #### 5 7021-8 ####[facility]ORYCLIA [id number] [address] CBC panel Auto (Bld)on 02-23 Erythrocyte distribution width (RBC) [Ratio] 12.2 % Normal 11.5-15.0 [facility] Comment on above: Order Comment: Speci men Type: BLOOD SPECIMEN Performed By: #### 5 8410-2 ####[facility]ORYCLIA [id number] [address] Hematocrit (Bld) [Volume fraction] 39.4 % Normal 39.0-51.0 [facility] Comment on above: Order Comment: Speci men Type: BLOOD SPECIMEN Performed By: #### 5 8410-2 ####[facility]ORYCLIA [id number] [address] Hemoglobin (Bld) [Mass/Vol] 13.0 g/dL Normal 13.0-17.0 [facility] Comment on above: Order Comment: Speci men Type: BLOOD SPECIMEN Performed By: #### 5 8410-2 ####[facility]ORYCLIA [id number] [address] MCH (RBC) [Entitic mass] 31.0 pg Normal 26.0-34.0 [facility] Comment on above: Order Comment: Speci men Type: BLOOD SPECIMEN Performed By: #### 5 8410-2 ####[facility]ORYCLIA [id number] [address] MCHC (RBC) [Mass/Vol] 33.0 g/dL Normal 30.5-36.0 [facility] Comment on above: Order Comment: Speci men Type: BLOOD SPECIMEN Performed By: #### 5 8410-2 ####[facility]ORYCLIA [id number] [address] MCV (RBC) [Entitic vol] 94.0 fL Normal 80.0-100.0 [facility] Comment on above: Order Comment: Speci men Type: BLOOD SPECIMEN Performed By: #### 5 8410-2 ####[facility]ORYCLIA [id number] [address] Nucleated RBC (Bld) [#/Vol] 10*3/uL Normal <0.01 [facility] Comment on above: Order Comment: Speci men Type: BLOOD SPECIMEN Performed By: #### 5 8410-2 ####[facility]ORYCLIA [id number] [address] Platelet mean volume (Bld) [Entitic vol] 9.7 fL Normal 9.0-12.7 [facility] Comment on above: Order Comment: Speci men Type: BLOOD SPECIMEN Performed By: #### 5 8410-2 ####[facility]ORYCLIA [id number] [address] Platelets (Bld) [#/Vol] 233 10*3/uL Normal 150-400 [facility] Comment on above: Order Comment: Speci men Type: BLOOD SPECIMEN Performed By: #### 5 8410-2 ####[facility]ORYCLIA [id number] [address] RBC (Bld) [#/Vol] 4.19 10*6/uL Low 4.20-6.00 [facility] Comment on above: Order Comment: Speci men Type: BLOOD SPECIMEN Performed By: #### 5 8410-2 ####[facility]ORYCLIA [id number] [address] WBC (Bld) [#/Vol] 6.29 10*3/uL Normal 3.70-11.00 [facility] Comment on above: Order Comment: Speci men Type: BLOOD SPECIMEN Performed By: #### 5 8410-2 ####[facility]ATORYCLIA [id number] [place] [address] [place] CONSULTon 02-23-2021 CONSULT HNO ID: [id number] Author: Bindu Sheehan PA-C Service: Cardiovascular Surgery Author Type: Physician Sewage Screen Operator Type: Consults Filed: 02/23/2021 9:08 AM Note Text: CARDIOTHORACIC SURGERY CONSULT / HANDP SERVICE DATE: 02/23/2021 SERVICE TIME: 8:45 AM Subjective PRIMARY SERVICE: Cardiothoracic Surgery CHIEF COMPLAINT: SOB HPI: This is a 80 year old male with hx of HTN, cardiomyopathy, HL, 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 He reported that he got the first Moderna Covid shot in August subsequently ended up feeling short of breath achy and subsequently ended up admitted over at [place] spent 9 days in 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 He did follow up with the JUN[employer] covid vaccination. He states ever since that time he is never felt 100% better he has had ongoing and persistent shortness of breath for several months he is never described any chest pain he describes the shortness of breath more with any type of exertion simply walking to the mailbox and back he would lives [place] 3 acres will cause him some generalized dyspnea he denies any recent travel surgeries no history of blood clots in his legs or lungs. He was scheduled have a stress test previously but because of the pneumonia and admission it was placed at a later date until recently where he had an abnormal stress test. EF 83%. He was thus scheduled for a cardiac cath 02/22. He did undergo cardiac cath in [place] (Dr. Michelle), with results as follow: ? Elevated LVED pressure Normal LV size, wall motion, and systolic function LVEF 55% [place] multivessel CAD Collateral flow left to right Upon initial evaluation discussion this morning patient is in good spirits and has no complaints. He states other than feeling little sleepy and tired as he did not sleep well last night he denies any chest pain shortness of breath denies any lightheaded dizziness weakness no blurred vision double vision photophobia photosensitivity denies any dysphonia or dysphagia no problems eating drinking or swallowing. He did state when he was admitted with pneumonia he was checked for Covid twice it was negative however he did state because of the admission he lost about 22 pounds but his appetite is starting to come back and he starting to eat much better at this point time. Denies abdominal pain no blood in the stools no urinary symptoms no problems with his prostate is able to sleep recumbent at night without any difficulty denies any leg pain swelling or edema denies any other complaints no history of injury trauma or falls. Patient is Able to Perform the Following Physical Activity: Walk indoors, such as around the house (1.75 METs) Do light work around the house, such as dusting or washing dishes (2.70 METs) Take care of self; that is eating, dressing, bathing, using the toilet (2.75 METs) Walk a block or two on level ground (2.75 METs) Do moderate work around the house such as vacuuming, sweeping floors, or carrying in groceries (3.50 METs) Do yardwork, such as raking leaves, weeding,or pushing a power mower (4.50 METs) Patient has the following medical comorbidities which might affect the perioperative course: - CAD of the hughes vessel. Stable with no angina at rest or exertion.. - Hypertension, well controlled. PAST MEDICAL HISTORY Diagnosis Date - Chronic cholecystitis - Essential hypertension, benign - Myalgia and myositis, unspecified - Other and unspecified hyperlipidemia PAST SURGICAL HISTORY Procedure Laterality Date - EXPLORATORY OF ABDOMEN Laparotomy, exp - LAPAROSCOPIC CHOLECYSTECTOMY 05/03/07 - PAST SURGICAL HISTORY OF back surgery - PAST SURGICAL HISTORY OF excision of kidney tumor FAMILY HISTORY Problem Relation Age of Onset - Breast Cancer Sister x3 - Cancer Sister x2 lung - Cancer Brother appendix Social History Tobacco Use - Smoking status: Never Smoker - Smokeless tobacco: Never Used Substance Use Topics - Alcohol use: No - Drug use: Not on file famotidine (PEPCID) 40 mg tablet, Take 40 mg by mouth once daily., Disp: , Rfl: metoprolol tartrate, short acting, (LOPRESSOR) 25 mg tablet, Take 25 mg by mouth twice daily., Disp: , Rfl: Cholecalciferol, Vitamin D3, 125 mcg (5,000 unit) cap, Take 5,000 Units by mouth once daily., Disp: , Rfl: levothyroxine (SYNTHROID) 75 mcg tablet, Take 75 mcg by mouth daily before breakfast., Disp: , Rfl: acetaminophen/diphenhyd ramine (TYLENOL PM EXTRA STRENGTH ORAL), Take 2 tablets by mouth as needed., Disp: , Rfl: spironolactone (ALDACTONE) 25 mg tablet, Take 25 mg by mouth once daily., Disp: , Rfl: omeprazole (PRILOSEC) 20 mg capsule, TAKE 1 CAPSULE BY MOUTH EVERY DAY 30 MINUTES BEFORE A MEAL, Disp: , Rfl: lisinopril (ZESTRIL, PRINIVIL) 20 mg tablet, Ta (more content not included)... Normal [facility] CONSULT HNO ID: [id number] Author: Rober Hoffmann MD Service: Cardiovascular Disease Author Type: Physician Type: Consults Filed: 02/23/2021 12:26 PM Note Text: CARDIOLOGY CONSULT NOTE REASON FOR CONSULT: CAD REQUESTING PHYSICIAN: POLLY CC: Javi Bates MD HPI: Mr. 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 Recovered. Had persistent Dyspnea. UNderwent stress test which was abnormal. This lead to diagnostic cath which uncovered 3 v CAD. He waas transferred for CABG. Has not had chest pain of dyspnea in the recent past. No prior AR. Physsically active. 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 Non smoker non diabetic , H/o Htn > 20 yrs. 1. 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 H/O Legionnaire's disease - ICD9: V12.09, ICD10: Z86.19 3. Primary hypertension - ICD9: 401.9, ICD10: I10 4. Dyslipidemia - ICD9: 272.4, ICD10: E78.5 CARDIAC RISK FACTORS: Smoking: No Diabetes: No Lipids: Yes Obesity: No HTN: Yes Sedentary Lifestyle: No Family History of M.A.C.E: No CHF: No Stroke /TIA: No PVD: No MOST RECENT CARDIAC TESTING: Echo: 09/08/20: Evelyn: Normal EF Normal Valves. Cardiac Catheterization: 02/22/21: 3 V CAD. Evelyn Holter / Event Recorder : === Stress Test : ABn stress , Evelyn TILT: === Device: === Vasc: === PRIOR CARDIAC/VASCULAR EVENTS: === PAST MEDICAL HISTORY Diagnosis Date - Chronic cholecystitis - Essential hypertension, benign - Myalgia and myositis, unspecified - Other and unspecified hyperlipidemia PAST SURGICAL HISTORY Procedure Laterality Date - EXPLORATORY OF ABDOMEN Laparotomy, exp - LAPAROSCOPIC CHOLECYSTECTOMY 05/03/07 - PAST SURGICAL HISTORY OF back surgery - PAST SURGICAL HISTORY OF excision of kidney tumor SOCIAL HISTORY Social History Tobacco Use - Smoking status: Never Smoker - Smokeless tobacco: Never Used Substance Use Topics - Alcohol use: No - Drug use: Not on file FAMILY HISTORY Problem Relation Age of Onset - Breast Cancer Sister x3 - Cancer Sister x2 lung - Cancer Brother appendix Family history was reviewed and non-contributory. ALLERGIES Allergen Reactions - Erythromycin Hives MEDICATIONS: famotidine (PEPCID) 40 mg tablet Take 40 mg by mouth once daily. metoprolol tartrate, short acting, (LOPRESSOR) 25 mg tablet Take 25 mg by mouth twice daily. Cholecalciferol, Vitamin D3, 125 mcg (5,000 unit) cap Take 5,000 Units by mouth once daily. levothyroxine (SYNTHROID) 75 mcg tablet Take 75 mcg by mouth daily before breakfast. acetaminophen/diphenhyd ramine (TYLENOL PM EXTRA STRENGTH ORAL) Take 2 tablets by mouth as needed. spironolactone (ALDACTONE) 25 mg tablet Take 25 mg by mouth once daily. omeprazole (PRILOSEC) 20 mg capsule TAKE 1 CAPSULE BY MOUTH EVERY DAY 30 MINUTES BEFORE A MEAL lisinopril (ZESTRIL, PRINIVIL) 20 mg tablet Take 20 mg by mouth once daily. REVIEW OF SYSTEMS: GENERAL: Negative for:Weight loss and Weight gain. Fevers, night sweats or chills HEENT: Negative for:Nosebleeds RESPIRATORY: Negative for:Shortness of breath, sputum production, cough or hemoptysis. GASTROINTESTINAL: Negative for: Indigestion, epigastric burning, hematemesis or blood in stool MUSCULOSKELETAL: Negtive for: Muscle or joint pain, stiffness, Joint swelling SKIN: No rash HEMATOLOGICAL/LYMPHATIC : Negative for: Easy bruising and Easy bleeding CARDIOVASCULAR: As stated in HPI. 10 system review negative except as stated in HPI PHYSICAL EXAMINATION: BP 160/97 Pulse 74 Temp (Src) 97.7 (Oral) Resp 16 Ht 6' 0 (1.83m) Wt 162 lb 6.4 oz (73.7kg) SpO2 95% BMI 22.02 kg/(m2). O2 Therapy: Room Air General: Well appearing, appears stated age and in no acute distress. Eyes: No subconjunctival hemorrhage Skin: No rash, bruising Oropharynx: Mucous membranes normal Neck: No jugular venous distention, no HJR, no carotid bruits. Lymph: No cervical lymphadenopathy Chest: Normal in ap diameter. No surgical scars or implants. No devices or ports Lungs: Clear to auscultation bilaterally, no wheezing or rhonchi. Heart: Rhythm is regular. No Lifts or heaves. PMI is not displaced. S1, S2 normal, S4 no S3, no murmur. Abdomen: Soft non tender. Positive bowel sounds, no guarding ,rebound of collateral circulation. Extremities: No peripheral edema VAscular: Pulses are symmetric. No bruits over the major vascular beds.Capillary refill at the toes 2+ Neuro: No acute focal motor or sensory deficits. Reflexes are normal. Affect and mentation are appropriate for current in -hospital condition. Gait was not tested. LABS Recent Labs 02/23/21 0659 WBC 6.29 RBC 4.19* HB 13.0 HCT 39.4 MCV 94.0 MCH 31.0 MCHC 33.0 RDWCV 12.2 PLT 233 MPV 9.7 PTSEC 10.7 APTT 55.0* INR 1.0 TSH 3.090 10/02/2020 (more content not included)... Normal [facility] CT CHEST WO IVCONon 02-24-20 CT CHEST WO IVCON * * *Final Report* * * DATE OF EXAM: Feb 23 2021 10:17AM [facility] 0541 - CT CHEST WO IVCON / PROCEDURE REASON: Shortness of breath * * * * Physician Interpretation * * * * EXAMINATION: CHEST CT WITHOUT CONTRAST CLINICAL HISTORY: Shortness of breath Technique: Spiral CT acquisition of the chest from the thoracic inlet to the upper abdomen without contrast. MQ: [id number] CT Radiation dose: Integrated Dose-length product (DLP) for this visit = 187 mGy*cm CT Dose Reduction Employed: Iterative recon Comparison: Ultrasound of the kidneys RESULT: Limitations: None. Lines, tubes, and devices: None. Lung parenchyma and airways: Wedge-shaped fibrosis with traction bronchiectasis involving the apical and posterior right upper lobe and linear fibrosis in the anterior right upper lobe and medial right middle lobe reflecting scarring. No consolidation. Minimal subpleural scarring is also noted in the left lung base. There is a 0.3 cm nodule in the lateral basal right lower lobe and other pleural-based nodularity seen inferiorly measuring up to 0.8 cm likely also post inflammatory/infectious in nature. Two punctate nodularities are present in the superior lingula and superior left lower lobe. (3, 106-110) The central airways are patent. Pleural space: No pleural effusion. No pleural thickening. Lower neck, lymph nodes, and mediastinum: The imaged thyroid gland is normal. No lymphadenopathy in the supraclavicular, axillary, mediastinal, or hilar regions. Heart, pericardium, and thoracic vessels: Ectatic ascending aorta that measures up to 3.9 cm with smooth distal tapering, minimal atherosclerotic plaque. Central pulmonary arteries are normal in course and caliber. The cardiac chambers are normal in size. Minimal calcifications of the mitral annulus, moderate coronary artery atherosclerotic calcifications are noted, although the study is not optimized for coronary assessment. No pericardial effusion or thickening. Bones and soft tissues: Mild anterior wedge deformity of several vertebral body of T7 and T8 with approximately 10-20% height loss and no retropulsion of bone fragments. There is also a likely chronic compression fracture the vertebral body T12. Mild degenerative changes of the glenohumeral joints. Upper abdomen: No acute abnormality in the imaged upper abdomen. A 4.8 cm cyst is present in the superior left renal pole. Partially imaged contrast excretion and renal pelvis, likely from recent catheterization. Rn Ostomy (topogram) images: No additional findings. IMPRESSION: 1. Moderate coronary artery calcifications. 2. Fibrotic changes involving the right upper and middle lobes. No consolidation or pleural effusion. 3. A few pleural-based nodularity in the right lower lobe measuring up to 0.8 cm, likely scarring or even possibly small intrapulmonary AVM, for which correlation with prior studies if available is recommended. Otherwise recommend follow-up in 3 months to assess for stability. --If prior studies become available, an addendum can be performed if requested.-- Steel Wheel Engraver: JABARI Transcribe Date/Time: Feb 25 2021 8:13A Dictated by : JAYME SHRESTHA MD This examination was interpreted and the report reviewed and electronically signed by: JAYME SHRESTHA MD on Feb 25 2021 8:27AM EST [id number] Normal [facility] Comprehensive metabolic 2000 panelon 02-23-2021 Albumin [Mass/Vol] 3.9 g/dL Normal 3.9-4.9 [facility] Comment on above: Order Comment: Speci men Type: BLOOD SPECIMEN Performed By: #### 1 9123-9, 3016-3, 37069-0, LIPB ####[facility]ATORYCLIA [id number] [address] ALP [Catalytic activity/Vol] 62 U/L Normal 38-113 [facility] Comment on above: Order Comment: Speci men Type: BLOOD SPECIMEN Performed By: #### 1 9123-9, 3016-3, 18793-2, LIPB ####[facility]ORYCLIA [id number] [address] STATES OF [facility] ALT With P-5'-P [Catalytic activity/Vol] 9 U/L Low 10-54 [facility] Comment on above: Order Comment: Speci men Type: BLOOD SPECIMEN Performed By: #### 1 9123-9, 3016-3, 57489-2, LIPB ####[facility]ATORYCLIA [id number] [address] OF [facility] Anion gap [Moles/Vol] 11 mmol/L Normal 9-18 [facility] Comment on above: Order Comment: Speci men Type: BLOOD SPECIMEN Performed By: #### 1 9123-9, 3016-3, 52111-3, LIPB ####[facility]ORYCLIA [id number] [address] OF [facility] AST With P-5'-P [Catalytic activity/Vol] 12 U/L Low 14-40 [facility] Comment on above: Order Comment: Speci men Type: BLOOD SPECIMEN Performed By: #### 1 23-9, 3016-3, 49253-8, LIPB ####[facility]ATORYCLIA [id number] [place], [place] [address] [place] [address] [place] Bilirubin [Mass/Vol] 0.8 mg/dL Normal 0.2-1.3 [facility] Comment on above: Order Comment: Speci men Type: BLOOD SPECIMEN Performed By: #### 1 23-9, 3016-3, 56222-7, LIPB ####[facility]ATORYCLIA [id number] [place], [place] [address] [place] [address] [place] Calcium [Mass/Vol] 8.9 mg/dL Normal 8.5-10.2 [facility] Comment on above: Order Comment: Speci men Type: BLOOD SPECIMEN Performed By: #### 1 9122-9, 6-3, 60515-9, LIPB ####[facility]ORYCLIA [id number] [address] [place] Chloride [Moles/Vol] 107 mmol/L High 97-105 [facility] Comment on above: Order Comment: Speci men Type: BLOOD SPECIMEN Performed By: #### 1 9122-9, 6-3, 62382-1, LIPB ####[facility]ORYCLIA [id number] [place], [place] [id number] [place] [address] [place] CO2 [Moles/Vol] 24 mmol/L Normal 22-30 [facility] Comment on above: Order Comment: Speci men Type: BLOOD SPECIMEN Performed By: #### 1 23-9, 6-3, 83750-2, LIPB ####[facility]ORYCLIA [id number] [place] [address] [place] Creatinine [Mass/Vol] 1.02 mg/dL Normal 0.73-1.22 [facility] Comment on above: Order Comment: Speci men Type: BLOOD SPECIMEN Performed By: #### 1 23-9, 3016-3, 27592-9, LIPB ####[facility] LABORATORYCLIA [id number] [place] [address] [place] GFR/1.73 sq M.predicted MDRD (S/P/Bld) [Vol rate/Area] mL/min/{1.73_m2} Normal [facility] Comment on above: Order Comment: Speci men Type: BLOOD SPECIMEN Result Comment: >60 eGFR (Estimated GFR) Units of measure: mL/min/1.73 meters squared eGFR is derived from the reexpressed MDRD Study equation using the following parameters: serum creatinine, age, gender and race. The creatinine assay has been calibrated to be traceable to IDMS. An eGFR <60 mL/min/1.73m2 for >3 months is consistent with chronic kidney disease. Refer to KDOQI guidelines for clinical interpretation. In patients with unstable renal function, e.g. those with acute kidney injury, the eGFR may not accurately reflect actual GFR. Performed By: #### 1 9123-9, 3016-3, 56857-7, LIPB ####[facility]ATORYCLIA [id number] [place] [id number] [place] Glucose [Mass/Vol] 96 mg/dL Normal 74-99 [facility] Comment on above: Order Comment: Speci men Type: BLOOD SPECIMEN Result Comment: The [place] Diabetes Association (ADA) provides guidance for cutoff values for fasting glucose and random glucose. The ADA defines fasting as no caloric intake for at least 8 hours. Fasting plasma glucose results between 100 to 125 mg/dL indicate increased risk for diabetes (prediabetes). Fasting plasma glucose results greater than or equal to 126 mg/dL meet the criteria for diagnosis of diabetes. In the absence of unequivocal hyperglycemia, results should be confirmed by repeat testing. In a patient with classic symptoms of hyperglycemia or hyperglycemic crisis, random plasma glucose results greater than or equal to 200 mg/dL meet the criteria for diagnosis of diabetes. Reference: Standards of Medical Care in Diabetes 2016, [place] [employer] Association. Diabetes Care. 2016.39(Suppl 1). Performed By: #### 1 9123-9, 3016-3, 98080-1, LIPB ####[facility]ATORYCLIA [id number] [place] [address] [place] Potassium [Moles/Vol] 3.9 mmol/L Normal 3.7-5.1 [facility] Comment on above: Order Comment: Speci men Type: BLOOD SPECIMEN Performed By: #### 1 9123-9, 3016-3, 73396-6, LIPB ####[facility]ATORYCLIA [id number] [place], [place] [address] [place] [address] [place] [facility] Protein [Mass/Vol] 6.2 g/dL Low 6.3-8.0 [facility] Comment on above: Order Comment: Speci men Type: BLOOD SPECIMEN Performed By: #### 1 9123-9, 3016-3, 53880-8, LIPB ####[facility]ATORYCLIA [id number] [address] STATES OF [facility] Sodium [Moles/Vol] 142 mmol/L Normal 136-144 [facility] Comment on above: Order Comment: Speci men Type: BLOOD SPECIMEN Performed By: #### 1 9123-9, 3016-3, 64529-2, LIPB ####[facility]ATORYCLIA [id number] [address] STATES OF [facility] Urea nitrogen [Mass/Vol] 17 mg/dL Normal 9-24 [facility] Comment on above: Order Comment: Speci men Type: BLOOD SPECIMEN Performed By: #### 1 9123-9, 3016-3, 36412-6, LIPB ####[facility]ATORYCLIA [id number] [address] [place] HGB A1Con 02-23-2021 Average glucose Estimated from glycated hemoglobin (Bld) [Mass/Vol] 105 mg/dL Normal [facility] Comment on above: Order Comment: Speci men Type: BLOOD SPECIMEN Result Comment: eAG: (Estimated average glucose) is a calculated value from HgbA1c and is representative government relations of the average blood glucose level in the last 2-3 month period. Performed By: #### H BA1C ####[facility]ATORYCLIA [id number] [address] [place] HbA1c (Bld) [Mass fraction] 5.3 % Normal 4.3-5.6 [facility] Comment on above: Order Comment: Speci men Type: BLOOD SPECIMEN Performed By: #### H BA1C ####[facility]ATORYCLIA [id number] [address] HIGH SENSITIVITY TROPONIN To n 02-23-2021 HIGH SENSITIVITY KELLY 22 ng/L High <12 [facility] Comment on above: Order Comment: Speci men Type: BLOOD SPECIMEN Result Comment: When assessing risk for acute coronary syndromes: In patients undergoing blood draw greater than or equal to 2 hours from symptom onset, with history of very low to moderate risk and non-ischemic ECG, an initial hs-Troponin T less than 12 ng/L AND a 1 hour delta hs-Troponin T less than 3 ng/L should be considered very low risk for 30 day MACE. Performed By: #### H STNT ####[facility]ORATORYCLIA [id number] [address] HIGH SENSITIVITY KELLY 19 ng/L High <12 [facility] Comment on above: Order Comment: [facility] Type: BLOOD SPECIMEN Result Comment: When assessing risk for acute coronary syndromes: In patients undergoing blood draw greater than or equal to 2 hours from symptom onset, with history of very low to moderate risk and non-ischemic ECG, an initial hs-Troponin T less than 12 ng/L AND a 1 hour delta hs-Troponin T less than 3 ng/L should be considered very low risk for 30 day MACE. Performed By: #### H STNT ####[facility]ATORYCLIA [id number] [address] HISTORY PHYSICALon HISTORY PHYSICAL HNO ID: [id number] Author: Manpreet Lawson MD Service: General Internal Medicine Author Type: Physician Type: HANDP Filed: 02/23/2021 7:57 AM Note Text: DEPARTMENT OF HOSPITAL MEDICINE HISTORY AND PHYSICAL EXAM SERVICE DATE: 02/23/2021 SERVICE TIME: 6:37 AM Primary Care Physician: Javi Bates MD NIGHT AND WEEKEND COVERAGE: From 7am - 7pm, please call Sound After 7pm, please call cross cover pager #[phone] Subjective CHIEF COMPLAINT: SOB/AWAN Completed Covid vaccines (Moderna #1, JANDJ #2) HPI: This is a 80 year old male with hx of HTN, cardiomyopathy, HL, Legionaire's pneumonia 08/2020, KHANH positive, who visited his PCP 01/31 reporting increasing SOB/AWAN and increasing bilat LE edema. He had a recent abnormal stress test. EF 83%. He was thus scheduled for a cardiac cath 02/22. He did undergo cardiac cath in [place] (Dr. Michelle), with results as follow: Elevated LVED pressure Normal LV size, wall motion, and systolic function LVEF 55% [place] multivessel CAD Collateral flow left to right Recommendations: Medical therapy Surgery consult for coronary revascularization He has thus been transferred here for Cardiology and CT Surgery assessment. Pt denies headache, fever, chills, vision changes, swallowing problems, neck pain, chest pain, cough, abdominal pain, flank pain, nausea, vomiting, diarrhea, constipation, bleeding, urinary problems, muscle pain or weakness, numbness, tingling, or joint pain/swelling. No other associated symptoms. No other known aggravating or relieving factors. He is afebrile, hypertensive, 96% on RA. Admission labs and EKG pending. PAST MEDICAL HISTORY Diagnosis Date - Chronic cholecystitis - Essential hypertension, benign - Myalgia and myositis, unspecified - Other and unspecified hyperlipidemia PAST SURGICAL HISTORY Procedure Laterality Date - EXPLORATORY OF ABDOMEN Laparotomy, exp - LAPAROSCOPIC CHOLECYSTECTOMY 05/03/07 - PAST SURGICAL HISTORY OF back surgery - PAST SURGICAL HISTORY OF excision of kidney tumor FAMILY HISTORY Problem Relation Age of Onset - Breast Cancer Sister x3 - Cancer Sister x2 lung - Cancer Brother appendix Social History Tobacco Use - Smoking status: Never Smoker - Smokeless tobacco: Never Used Substance Use Topics - Alcohol use: No - Drug use: Not on file HOME MEDICATIONS: Prior to Admission Medications Prescriptions Last Dose Informant Patient Reported? Taking? Cholecalciferol, Vitamin D3, 125 mcg (5,000 unit) cap Yes Yes Sig: Take 5,000 Units by mouth once daily. acetaminophen/diphenhyd ramine (TYLENOL PM EXTRA STRENGTH ORAL) Yes No Sig: Take 2 tablets by mouth as needed. famotidine (PEPCID) 40 mg tablet Yes Yes Sig: Take 40 mg by mouth once daily. levothyroxine (SYNTHROID) 75 mcg tablet Yes Yes Sig: Take 75 mcg by mouth daily before breakfast. lisinopril (ZESTRIL, PRINIVIL) 20 mg tablet Yes No Sig: Take 20 mg by mouth once daily. metoprolol tartrate, short acting, (LOPRESSOR) 25 mg tablet Yes Yes Sig: Take 25 mg by mouth twice daily. omeprazole (PRILOSEC) 20 mg capsule Yes No Sig: TAKE 1 CAPSULE BY MOUTH EVERY DAY 30 MINUTES BEFORE A MEAL predniSONE (DELTASONE) 20 mg tablet No No Si tabs a day by mouth daily spironolactone (ALDACTONE) 25 mg tablet Yes No Sig: Take 25 mg by mouth once daily. Facility-Administered Medications: None ALLERGIES Allergen Reactions - Erythromycin Hives REVIEW OF SYSTEM: All ROS are negative except those noted in HPI Objective PHYSICAL EXAM: BP 160/97 Pulse 74 Temp (Src) 97.7 (Oral) Resp 16 Ht 6' 0 (1.83m) Wt 162 lb 6.4 oz (73.7kg) SpO2 95% BMI 22.02 kg/(m2). O2 Therapy: Room Air GENERAL: Alert, no distress, cooperative, NAD SKIN: Warm, dry intact, no open lesions, no rashs HEAD/SINUSES: Normocephalic, atraumatic, oral mucosa moist EYES: PERRLA, EOMI NECK: No jugulovenous distention, Supple, no adenopathy LUNGS: Lungs clear to auscultation, no wheezes, ronchi, or rales CARDIAC: RRR, Normal S1 and S2; no rubs, murmurs, or gallops ABDOMEN: Abdomen soft, non-tender, BS normal, No masses or organomegaly EXTREMITIES: Extremities normal, no deformities, edema, clubbing or skin discoloration. NEURO: Sensation grossly intact, Cranial nerves II-XII intact, moves all 4 extremities, speech was clear and coherent - no chronic andrews DATA: Diagnostic tests reviewed for today's visit: Most recent labs and imaging results. CBC: No results for input(s): WBC, RBC, HB, HCT, PLT, MCV, MCH, MPV, RDW in the last 24 hours. Coags: No results for input(s): PT, INR, APTT in the last 24 hours. BMP: No results for input(s): NA, K, CHLOR, CO2, BUN, CREAT, GLUC in the last 24 hours. CMP: No results for input(s): NA, K, CHLOR, CO2, BUN, CREAT, GLUC, TPROT, CA, MG, ALBUMIN, TBILI, ALKPHOS, ALT, AST, ANION in the last 24 hours. Cardiac Enzymes: No results for input(s): CK, MB, CKMB, TROPT in the last (more content not included)... Normal [facility] LIPID PANEL BASICon 02-24-20 21 Cholesterol [Mass/Vol] 256 mg/dL High <200 [facility] Comment on above: Order Comment: Speci men Type: BLOOD SPECIMEN Result Comment: <200 mg/dL, Desirable 200-239 mg/dL, Borderline high >239 mg/dL, High Performed By: #### 1 9123-9, 3016-3, 06249-6, LIPB ####[facility]ATORYCLIA [id number] [address] OF [facility] Cholesterol in HDL [Mass/Vol] 42 mg/dL Normal >39 [facility] Comment on above: Order Comment: Speci men Type: BLOOD SPECIMEN Result Comment: 40-5 9 mg/dL, Acceptable >59 mg/dL, High: Negative risk factor for coronary heart disease <40 mg/dL, Low: Positive risk factor for coronary heart disease Performed By: #### 1 9123-9, 6-3, 12315-9, LIPB ####[facility]ORYCLIA [id number] [address] STATES OF [facility] Cholesterol in LDL [Mass/Vol] 176 mg/dL High <100 [facility] Comment on above: Order Comment: Spec men Type: BLOOD SPECIMEN Result Comment: <100 mg/dL, Optimal 100-129 mg/dL, Near optimal/above optimal 130-159 mg/dL, Borderline high 160-189 mg/dL, High >189 mg/dL, Very high Secondary prevention optimal LDL Cholesterol levels are recommended to be < 70 mg/dL Performed By: #### 1 9123-9, 3016-3, 71909-5, LIPB ####[facility]ORYCLIA [id number] [address] OF [facility] Cholesterol in LDL/Cholesterol in HDL [Mass ratio] 4.19 {ratio} High <2.54 [facility] Comment on above: Order Comment: Speci men Type: BLOOD SPECIMEN Result Comment: Loc enriquez: 1. National Cholesterol Education Program ATP III Guideline At-A-Glance Quick Desk Reference: National Heart, Lung, and Blood [place]. National Institutes of Health. 2001: NIH Publication No. 01-3305. 2. An International Atherosclerosis Society position paper: global recommendations for the management of dyslipidemia: executive summary, Atherosclerosis. 2014: 232(2):410-413. Performed By: #### 1 9123-9, 3016-3, 25486-1, LIPB ####[facility]ATORYCLIA [id number] [address] OF [facility] Cholesterol in VLDL [Mass/Vol] 38 mg/dL High <30 [facility] Comment on above: Order Comment: Speci men Type: BLOOD SPECIMEN Performed By: #### 1 9123-9, 3016-3, 90482-5, LIPB ####[facility]ATORYCLIA [id number] [address] [place] Cholesterol non HDL [Mass/Vol] 214 mg/dL High <130 [facility] Comment on above: Order Comment: Speci men Type: BLOOD SPECIMEN Result Comment: <130 mg/dL, Optimal 130-159 mg/dL, Near optimal/above optimal 160-189 mg/dL, Borderline high 190-219 mg/dL, High >219 mg/dL, Very high Secondary prevention optimal non HDL Cholesterol levels are recommended to be <100 mg/dL Performed By: #### 1 9123-9, 3016-3, 50661-6, LIPB ####[facility]ATORYCLIA [id number] [address] Cholesterol.total/Brenda sterol in HDL [Mass ratio] 6.10 {ratio} High <5.10 [facility] Comment on above: Order Comment: Speci men Type: BLOOD SPECIMEN Performed By: #### 1 9123-9, 3016-3, 73631-8, LIPB ####[facility]ORATORYCLIA [id number] [address] STATES OF [facility] FASTING TIME 0 hrs Normal [facility] Comment on above: Order Comment: Speci men Type: BLOOD SPECIMEN Performed By: #### 1 9123-9, 3015-3, 61048-3, LIPB ####[facility]ATORYCLIA [id number] [address] STATES OF [facility] Triglyceride [Mass/Vol] 191 mg/dL High <150 [facility] Comment on above: Order Comment: Speci men Type: BLOOD SPECIMEN Result Comment: <150 mg/dL, Normal 150-199 mg/dL, Borderline high 200-499 mg/dL, High >499 mg/dL, Very high Performed By: #### 1 9123-9, 3015-3, , LIPB ####[facility]ATORYCLIA [id number] [address] [place] Magnesium SerPl-mCncon 02-23 Magnesium [Mass/Vol] 2.0 mg/dL Normal 1.7-2.3 [facility] Comment on above: Order Comment: Speci men Type: BLOOD SPECIMEN Performed By: #### 1 9123-9, 3015-3, , LIPB ####[facility]ATORYCLIA [id number] [address] STATES OF [facility] PT panel Coag (PPP)on 2020 INR Coag (PPP) [Relative time] 1.0 {INR} Normal 0.9-1.3 [facility] Comment on above: Order Comment: Speci men Type: BLOOD SPECIMEN Result Comment: Maya min K Antagonist (VKA) Therapeutic Range: INR 2 to 3 (Target INR of 2.5) Note: For patients treated with VKA drugs, such as warfarin, the [place] [employer] 2012 Guideline recommends a therapeutic INR range of 2 to 3 (target INR of 2.5). This recommendation includes high-risk patients with antiphospholipid syndrome with previous arterial or venous thromboembolism, current-generation mechanical or bioprosthetic aortic heart valve replacement. Note: Patients with mechanical aortic valve replacement and additional risk factors for thromboembolic events (atrial fibrillation, previous thromboembolism, LV dysfunction, hypercoagulable conditions) or an older generation mechanical AVR (i.e., ball in-Cage) or any mechanical MVR should have a INR therapeutic range of 2.5 to 3.5 (target INR of 3). Ela PERALTA, et al. Chest 2012, 141:7S-47S Renny BULLOCK et al. [facility] 2017, 70: 252-289 Performed By: #### 3 4528-0, 48932-3 ####[facility]ATORYCLIA [id number] [address] [place] PT Coag (PPP) [Time] 10.7 s Normal 9.7-13.0 [facility] Comment on above: Order Comment: Speci men Type: BLOOD SPECIMEN Performed By: #### 3 4528-0, 36267-4 ####[facility]ORYCLIA [id number] [address] OF [facility] SARS-CoV-2 RNA Resp Ql [place]+p robeon 02-23-2021 SARS-CoV-2 (COVID-19) RNA [place]+probe Ql (Resp) COVID 19 RESULT: SARS-CoV-2 (Agent of COVID-19) Not Detected by PCR. This test has been authorized by FDA under an Emergency Use Authorization (EUA) Normal [facility] Comment on above: Performed By: #### 9 4500-6 ####[facility]ORYCLIA [id number] [address] STAPH AUREUS PCRon S. aureus and MRSA panel [place]+probe (Nose) Normal Negative [facility] Comment on above: Order Comment: Speci men Type: BLOOD SPECIMEN Result Comment: Nega tive for Staphylococcus aureus by PCR. Negative for MRSA by PCR Performed By: #### T SCR #### [facility] CLIA [id number] [place] TSH SerPl-aCncon 02-23-2021 TSH Qn 3.380 m[IU]/L Normal 0.270-4.20 0 [facility] Comment on above: Order Comment: Speci men Type: BLOOD SPECIMEN Performed By: #### 1 9123-9, 3016-3, 06343-3, LIPB ####[facility] LABORATORYCLIA [id number] [address] aPTT PPPon 02-23-2021 aPTT Coag (PPP) [Time] 48.4 s High 23.0-32.4 [facility] Comment on above: Order Comment: Speci men Type: BLOOD SPECIMEN Performed By: #### 1 4979-9 ####[facility]ATORYCLIA [id number] [address] aPTT Coag (PPP) [Time] 55.0 s High 23.0-32.4 [facility] Comment on above: Order Comment: Speci men Type: BLOOD SPECIMEN Performed By: #### 3 4528-0, 23070-1 ####[facility]ORATORYCLIA [id number] [address] CNPMeredith [facility]-07-2020 [facility] KULWANT ANDRADE ([id number]) 1940 Date Time Provider Department [facility]/07[facility] visit today, we recorded the following information about you: Javi Bates MD 12/07/2020 12:44 PM Signed Let patient know all labs for myasthenia gravis testing were negative. Caitlin Abrams Ma 12/07/2020 1:43 PM Signed Patient was notified Caitlin Abrams Ma Allergies As of Date: 12/07/2020 Noted Allergy Reaction ERYTHROMYCIN 04/15/2005 4 - Hives Date Reviewed: 11/12/2020 Reviewed by: Sofiya Zanick, WEB MANAGER.SYNCHRONOUS MOTOR ASSEMBLER - Fully Assessed Reason for Visit: Results [95] Prescriptions as of 12/07/2020 - acetaminophen/diphenhyd ramine (TYLENOL PM EXTRA STRENGTH ORAL) Take 2 tablets by mouth as needed. - predniSONE (DELTASONE) 20 mg tablet 3 tabs a day by mouth daily - Cholecalciferol, Vitamin D3, 125 mcg (5,000 unit) cap Take 5,000 Units by mouth once daily. - spironolactone (ALDACTONE) 25 mg tablet Take 25 mg by mouth once daily. - omeprazole (PRILOSEC) 20 mg capsule TAKE 1 CAPSULE BY MOUTH EVERY DAY 30 MINUTES BEFORE A MEAL - lisinopril (ZESTRIL, PRINIVIL) 20 mg tablet Take 20 mg by mouth once daily. - levothyroxine (SYNTHROID) 75 mcg tablet Take 75 mcg by mouth daily before breakfast. 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] 04/15/2005 Arthralgia [M25.50] 10/11/2020 ESR raised [R70.0] 10/11/2020 CRP elevated [R79.82] 10/11/2020 BART (acute kidney injury) (HCC) [N17.9] 10/11/2020 Dehydration [E86.0] 10/11/2020 Hypercalcemia [E83.52] 10/11/2020 Low serum parathyroid hormone (PTH) [R79.89] 10/11/2020 Encounter Status:Closed by CAITLIN ABRAMS MA on 12/07/20 Normal [facility] Actylcholine Bindingon 11-22 Acetylcholin Rec/Bin <0.02 Normal <0.21 [facility] Comment on above: Performed By: #### A CHRAB, WSR, CRP ####[facility] [address] [place], [place] [phone]#### MUSK #### [address] [phone] Actylcholine Bind Ql Negative Normal [facility] [facility] Comment on above: Performed By: #### A CHRAB, WSR, CRP ####[facility] [place], [place] [phone]#### MUSK #### [facility] [place], [place] [phone] C-Reactive Proteinon 021 C-Reactive Protein 28.8 mg/dL High <0.9 [facility] Comment on above: Performed By: #### A CHRAB, WSR, CRP ####[facility] [place], [place] [phone]#### MUSK #### [facility] [place], [place] [phone] LRP4 Autoab Teston 1 LRP4 Auto Ab (NOTE) Normal [facility] Comment on above: Result Comment: INTE RPRETATION NEGATIVE This test did not detect abnormal levels of anti-LRP4 antibodies. TECHNICAL RESULTS -------- Interpretive Result Table -------- INTERPRETIVE RESULT: Negative TEST: anti-LRP4 TECHNICAL RESULT: Negative REFERENCE RANGE: Negative -------- -------- COMMENTS This result does not exclude a diagnosis of Myasthenia Gravis. Recommendations: Health care providers, please contact the [email or web address] Client Services Department at if you wish to speak with a clinical portrait consultant regarding this test result. Other testing available: [email or web address] recommends additional testing, if not already performed, and currently offers the following test: MuSK Antibody Test. Please contact the [email or web address] Client Services Department or visit [facility] for information regarding additional testing that may be appropriate based on this individual's clinical presentation. Background information: Myasthenia gravis (MG) is an autoimmune disease affecting the neuromuscular junctions of skeletal muscles. The predominant clinical feature is fatigability and weakness of the muscles that typically become progressively worse during periods of sustained activity and improve after periods of rest. The age of onset is variable with an overall prevalence of approximately 7.77 cases per 100,000 persons (range 1.5 to 17.9). The majority of patients with generalized MG have antibodies against the acetylcholine receptor (AChR). However, about 10-15% are AChR sero-negative, while approximately 40% of these patients have anti-MuSK antibodies, 2-50% may have antibodies to the low-density lipoprotein receptor-related protein 4 (LRP4). LRP4 is a postsynaptic agrin receptor protein responsible for development and maintenance of the neuromuscular junction, and anti-LRP4 antibodies may be involved in a pathogenic mechanism at the neuromuscular endplate. METHODS Detection of antibodies was performed by indirect immunofluorescence staining on a recombinant cell line expressing the antigen. Limitations of analysis: Cross-interfering antibodies may be present in samples and appear as borderline or low positive results. Specimen type may affect sensitivity and specificity of this assay. Although rare, false positive or false negative results may occur. All results should be interpreted in the context of clinical findings, relevant history, and other laboratory data. REFERENCES 1. Loren , et al. (2010) BMC Neurol 2010;10:46. (PMID: 24952655) 2. Robert Patel et al. (2013) J Autoimmun 52: 139. (PMID: 64761571) 3. Jayson A, et al. (2013) Autoimmun Rev 12: 931-5. (PMID: 26343195) 4. Helder HANNA et al. (2015) Biochim Biophys Acta 1852(4): 651-7. (PMID: 94504993) This test was developed and its analytical performance characteristics have been determined by [email or web address]. It has not been cleared or approved by the U.S. Food and Drug Administration. This assay has been validated pursuant to the CLIA regulations and is used for clinical purposes. Laboratory oversight provided by Nellie Forte M.D., Ph.D., CLIA license [place], [email or web address] (CLIA# [id number]) Testing performed at: [email or web address] [address] [place] [address] Performed By: #### A CHR, WSR, CRP ####[place] [address] [place], [place] [phone]#### MUSK #### [address] [phone] MuSK Antibody Teston 021 MuSK Antibody 0.00 nmol/L Normal 0.00-0.02 [facility] Comment on above: Result Comment: (NOT E) A negative result does not exclude the diagnosis of autoimmune myasthenia gravis. Testing for acetylcholine receptor binding and modulating antibodies, and striational antibody should be considered. ADDITIONAL INFORMATION This test was developed using an analyte specific reagent. Its performance characteristics were determined by [facility] in a manner consistent with CLIA requirements. This test has not been cleared or approved by the U.S. Food and Drug Administration. Performed By: #### A CHRAB, WSR, CRP ####[place] [address] [place], [place] [phone]#### MUSK #### [address] [place], [place] [phone] Sed Rate Westergrenon 2020 Sed Rate Westergren 93 mm/hr High 0-15 [facility] Comment on above: Performed By: #### A CHRAB, WSR, CRP ####[facility] [address] [place], [place] [phone]#### MUSK #### [facility] [place], [place] [phone] CNPMeredith 11-21-2020 CNPN Telephone (NEPHST) KULWANT ANDRADE ([id number]) 1940 M Date Time Provider Department 11/21/20 SOFIYA SONG During your visit today, we recorded the following information about you: Sandie Isrrael Pss 11/21/2020 10:05 AM Signed Patient said since Sofiya Song took him off of a medication (he didn't know the name of it), his BP has been high. Took it this morning and it was 142/83. Yesterday was 158/94 11/19/20 was 174/98. Please advise at [phone]. Dayan Barrett MA 11/21/2020 2:20 PM Signed spoke with patient Allergies As of Date: 11/21/2020 Noted Allergy Reaction ERYTHROMYCIN 04/15/2005 4 - Hives Date Reviewed: 11/12/2020 Reviewed by: Sofiya Song APRN.SYNCHRONOUS MOTOR ASSEMBLER - Fully Assessed Reason for Visit: Elevated BP since medication change [Other] Prescriptions as of 11/21/2020 Sig: TYLENOL PM EXTRA STRENGTH ORAL Take 2 tablets by mouth as ne* PREDNISONE 20 MG TABLET 3 tabs a day by mouth daily CHOLECALCIFEROL (VITAMIN D3) * Take 5,000 Units by mouth onc* SPIRONOLACTONE 25 MG TABLET Take 25 mg by mouth once gaetano* OMEPRAZOLE 20 MG CAPSULE,GIANNI* TAKE 1 CAPSULE BY MOUTH EVERY* LISINOPRIL 20 MG TABLET Take 20 mg by mouth once gaetano* LEVOTHYROXINE 75 MCG TABLET Take 75 mcg by mouth daily be* Problem List As Of Date 11/21/2020 Noted Resolved HYPERLIPIDEMIA NEC/NOS [E78.5] BENIGN HYPERTENSION [I10] PLANTAR NERVE LESION [G57.60] 04/15/2005 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] 04/15/2005 Arthralgia [M25.50] 10/11/2020 ESR raised [R70.0] 10/11/2020 CRP elevated [R79.82] 10/11/2020 BART (acute kidney injury) (HCC) [N17.9] 10/11/2020 Dehydration [E86.0] 10/11/2020 Hypercalcemia [E83.52] 10/11/2020 Low serum parathyroid hormone (PTH) [R79.89] 10/11/2020 Encounter Status:Closed by DAYAN BARRETT MA on 11/21/20 Normal [facility] US KIDNEY/BLADDERon 11-22-19 KIDNEY/BLADDER * * *Final Report* * * DATE OF EXAM: Nov 21 2020 8:41AM U 1055 - US KIDNEY/BLADDER / PROCEDURE REASON: BART (acute kidney injury) (HCC) * * * * Physician Interpretation * * * * EXAMINATION: ULTRASOUND KIDNEY/BLADDER CLINICAL HISTORY: Acute kidney injury. TECHNIQUE: Sonography of the kidneys and urinary bladder was performed. Images were obtained and stored in a permanent archive. MQ: UR_1 COMPARISON: The CT abdomen on 10/28/2002 is not available for comparison. RESULT: Right Kidney: -Renal length: 10.6 cm -Parenchyma: Normal parenchymal echogenicity. Normal parenchymal thickness. -Collecting system: No hydronephrosis. -Calculus: There is a 4 mm echogenic focus in the lower pole. -Lesion: None. Left Kidney: -Renal length: 12.2 cm -Parenchyma: Normal parenchymal echogenicity. Normal parenchymal thickness. -Collecting system: No hydronephrosis. -Calculus: No echogenic, shadowing calculus. -Lesion: Multiple cysts identified with the largest ones measuring 7.0 x 3.7 x 4.6 cm (upper pole lobulated cyst versus 2 adjacent cysts) and 3.0 x 2.7 x 3.2 cm (lower pole). Bladder: Partially decompressed bladder. Prevoid volume 103 cc and the postvoid volume 6 cc. IMPRESSION: Tiny echogenic focus in the right kidney, raising concern for right renal calculus. Multiple left renal cyst. Steel Wheel Engraver: JABARI Transcribe Date/Time: Nov 21 2020 2:32P Dictated by : DUKE SAAVEDRA MD This examination was interpreted and the report reviewed and electronically signed by: DUKE SAAVEDRA MD on Nov 21 2020 2:35PM EST [id number] [facility]FAM[facility]utor [facility]ve[facility] KULWANT ANDRADE ([id number]) 1940 M Date Time Provider Department 11/20/20 JAVI BATES [facility] During your visit today, we recorded the following information about you: Julianna Spivey RN 11/20/2020 3:22 PM Signed Patient calls and states that his legs are getting weaker and weaker. Patient states that he can't hardly lift his feet off the floor. Patient states that he is still taking his 60 mg of prednisone. Patient also complaining of shortness of breath. Patient is going to go see Dr. Michelle 12/04. Patient thinks he is going to have heart catheterization on 12/11. When patient visited resident program specialist Sofiya Song on 11/12/2020 he was take off of amlodipine. Patient now says that his blood pressures have been running high. Last blood pressure was 150/114. Patient is asymptomatic for this. Please review and advise, SHENA Montaño PA-C 11/21/2020 8:56 AM Signed Patient needs to contact nephrology about blood pressure changes with their recent med change.. For the weakness, is he scheduled with rheum yet? If significantly worsening, he should go to ER. Otherwise, i'm going to ask Dr. Bates to review tomorrow when he is back in office. Thanks, SOCORRO Saldana LPN 11/21/2020 9:19 AM Signed Spoke with pt and reviewed Haroon's message with him. Pt verbalizes understanding. Pt will contact nephrology when he gets home. States he has rheumatology appt 12/24. Pt aware Kalyn will discuss with Dr Bates tomorrow. Pt states sx get worse towards evening. Pt verbalizes understanding of ER instructions and states will go if sx worsen. Forest Bates MD 11/22/2020 1:13 PM Signed Let patient know I don't want to change anything in his treatment at this time but want to repeat his inflammatory markers (ESR and CRP) to see if lower then they were since being on the prednisone. I also want to do some labs for myasthenia gravis. Orders placed. Forest Sebastian LPN 11/22/2020 2:39 PM Signed Left message for pt to contact office. Forest White LPN 11/22/2020 3:02 PM Signed Spoke with pt and information listed below given. Pt verbalizes understanding. Pt scheduled to come in today to get blood work done. Pt reports can hardly walk and getting worse each day. Elena Bates MD 11/23/2020 8:08 AM Signed Noted. Allergies As of Date: 11/20/2020 Noted Allergy Reaction ERYTHROMYCIN 04/15/2005 4 - Hives Date Reviewed: 11/12/2020 Reviewed by: Sofiya Song APRN.SYNCHRONOUS MOTOR ASSEMBLER - Fully Assessed Reason for Visit: Patient Update [1234] Primary Visit Diagnosis:ESRD (end stage renal disease) on dialysis (HCC) [N18.6, Z99.2] Other Visit Diagnoses:Elevated sed rate [R70.0] CRP elevated [R79.82] Muscle weakness [M62.81] Order(s):C-REACTIVE PROTEIN (CRP) [SQCRP] Order #: [id number] FUTURE SED RATE WESTERGREN [SQWSR] Order #: [id number] FUTURE MUSK ANTIBODY TEST [SQMUSK] Order #: [id number] FUTURE ACETYLCHOLINE REC BINDING AB [SQACHRAB] Order #: [id number] FUTURE LRP4 AUTOANTIBODY TEST [UIIJH9WV] Order #: [id number] FUTURE Prescriptions as of 11/20/2020 Sig: TYLENOL PM EXTRA STRENGTH ORAL Take 2 tablets by mouth as ne* PREDNISONE 20 MG TABLET 3 tabs a day by mouth daily CHOLECALCIFEROL (VITAMIN D3) * Take 5,000 Units by mouth onc* SPIRONOLACTONE 25 MG TABLET Take 25 mg by mouth once gaetano* OMEPRAZOLE 20 MG CAPSULE,GIANNI* TAKE 1 CAPSULE BY MOUTH EVERY* LISINOPRIL 20 MG TABLET Take 20 mg by mouth once gaetano* LEVOTHYROXINE 75 MCG TABLET Take 75 mcg by mouth daily be* Problem List As Of Date 11/20/2020 Noted Resolved HYPERLIPIDEMIA NEC/NOS [E78.5] BENIGN HYPERTENSION [I10] PLANTAR NERVE LESION [G57.60] 04/15/2005 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] 04/15/2005 Arthralgia [M25.50] 10/11/2020 ESR raised [R70.0] 10/11/2020 CRP elevated [R79.82] 10/11/2020 BART (acute kidney injury) (HCC) [N17.9] 10/11/2020 Dehydration [E86.0] 10/11/2020 Hypercalcemia [E83.52] 10/11/2020 Low serum parathyroid hormone (PTH) [R79.89] 10/11/2020 Encounter Status:Closed by JAVI BATES on 11/23/20 Normal [facility] CBC and Differentialon 11-12 Abs Baso <0.03 Normal <0.11 [facility] Comment on above: Performed By: #### V ITD, SERMPA, PTHI, RFP ####[facility] [address] [place], [place] [phone] Abs Eosin <0.03 Normal <0.46 [facility] Comment on above: Performed By: #### V ITD, SERMPA, PTHI, RFP ####[place] [address] [place] [phone] Abs [place]is[place] 0.30 k/uL Normal <0.87 [facility] Comment on above: Performed By: #### V ITD, SERMPA, PTHI, RFP ####[address] [phone] Abs Neut 10.80 k/uL High 1.45-7.50 [facility] Comment on above: Performed By: #### V ITD, SERMPA, PTHI, RFP ####[place] [address] [place] [phone] Absolute nRBC <0.01 Normal <0.01 [facility] Comment on above: Performed By: #### V ITD, SERMPA, PTHI, RFP ####[place] [address] [place] [phone] Basophils/100 WBC (Bld) 0.1 % Normal [facility] Comment on above: Performed By: #### V ITD, SERMPA, PTHI, RFP ####[address] [phone] DTYPE Auto Diff Normal [facility] Comment on above: Performed By: #### V ITD, SERMPA, PTHI, RFP ####[address] [phone] Eosinophils/100 WBC (Bld) 0.0 % Normal [facility] Comment on above: Performed By: #### V ITD, SERMPA, PTHI, RFP ####[address] [phone] Erythrocyte distribution width (RBC) [Ratio] 13.2 % Normal 11.5-15.0 [facility] Comment on above: Performed By: #### V ITD, SERMPA, PTHI, RFP ####[place] [address], [place] [phone] Hematocrit (Bld) [Volume fraction] 38.5 % Low 39.0-51.0 [facility] Comment on above: Performed By: #### V ITD, SERMPA, PTHI, RFP ####[address] [phone] Hemoglobin (Bld) [Mass/Vol] 12.7 g/dL Low 13.0-17.0 [facility] Comment on above: Performed By: #### V ITD, SERMPA, PTHI, RFP ####[place] [phone] Lymphocytes (Bld) [#/Vol] 0.30 10*3/uL Low 1.00-4.00 [facility] Comment on above: Performed By: #### V ITD, SERMPA, PTHI, RFP ####[place] [phone] Lymphocytes/100 WBC (Bld) 2.6 % Normal [facility] Comment on above: Performed By: #### V ITD, SERMPA, PTHI, RFP ####[place] [phone] MCH 31.4 pG Normal 26.0-34.0 [facility] Comment on above: Performed By: #### V ITD, SERMPA, PTHI, RFP ####[place] [address] [place] [phone] MCHC (RBC) [Mass/Vol] 33.0 g/dL Normal 30.5-36.[address] [facility] Comment on above: Performed By: #### V ITD, SERMPA, PTHI, RFP ####[address] [phone] MCV (RBC) [Entitic vol] 95.1 fL Normal 80.0-100.0 [facility] Comment on above: Performed By: #### V ITD, SERMPA, PTHI, RFP ####[place] [address], [place] [phone] Monocytes/100 WBC (Bld) 2.6 % Normal [facility] Comment on above: Performed By: #### V ITD, SERMPA, PTHI, RFP ####[place] [address], [place] [phone] Neutrophils/100 WBC (Bld) 94.7 % Normal [facility] Comment on above: Performed By: #### V ITD, SERMPA, PTHI, RFP ####[place] [address], [place] [phone] NRBCs 0.0 /100 WBC Normal 0 [facility] Comment on above: Performed By: #### V ITD, SERMPA, PTHI, RFP ####[place] [address], [place] [phone] Platelet mean volume (Bld) [Entitic vol] 9.0 fL Normal 9.0-12.7 [facility] Comment on above: Performed By: #### V ITD, SERMPA, PTHI, RFP ####[place] [address], [place] [phone] Platelets (Bld) [#/Vol] 271 10*3/uL Normal 150-400 [facility] Comment on above: Performed By: #### V ITD, SERMPA, PTHI, RFP ####[place] [address], [place] [phone] RBC (Bld) [#/Vol] 4.05 10*6/uL Low 4.20-6.00 [facility] Comment on above: Performed By: #### V ITD, SERMPA, PTHI, RFP ####[place] [address] [place], [place] [phone] WBC (Bld) [#/Vol] 11.41 10*3/uL High 3.70-11.00 [facility] Comment on above: Performed By: #### V ITD, SERMPA, PTHI, RFP ####[facility] [address] [place], [place] [phone] CNOVon 11-12-2020 CNOV Office Visit (NEPHST ) KULWANT ANDRADE ([id number]) 1940 M Date Time Provider Department 11/12/20 2:00 PM SOFIYA SONG During your visit today, we recorded the following information about you: Respiration Weight Height 12/minute 80.3 kg 1.803 m Sofiya Song APRN.SYNCHRONOUS MOTOR ASSEMBLER 11/12/2020 3:47 PM Signed [facility] NEPHR[facility]YPERTENSION [facility] SERVICE DATE: 11/11/2020 SERVICE TIME: 7:43 PM REASON FOR CONSULT: I am asked to see this patient in consultation for my opinion regarding BART. My recommendations will be communicated by way of shared medical record, fax, or mail. REQUESTING PHYSICIAN: Javi Bates MD PRIMARY CARE PHYSICIAN: Javi Bates MD CHIEF COMPLAINT: BART HPI: Mr. 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 Done [facility]. Prior resident program specialist: none Creatinine has been abnormal since September 2020. Most recently creatinine ranging from 1.8-2.0 Proteinuria; no sample on file Hematuria: reports he has been told he has microscopic hematuria- saw urology in past and was told cystoscopy was negative. Current BP medications: Amlodipine 10 mg daily; lisinopril 20 mg daily; Spironolactone 25 mg once daily Diabetic: No HTN: yes, since . NSAIDs: Was taking it 1-2 x day for bilateral hip pain / Moderna vaccination; Started in July. Not taking anymore. Stopped about 6 weeks ago. No excessive use prior to this. Supplements currently being taken:vitamin D Hx of kidney stones: yes x1 Hx of chronic UTIs: none Family Hx of kidney disease: dtr has medullary sponge Daily fluids: 2-3 bottles of 16 oz water Pt on prednisone since Moderna vaccines. Advised to take it for couple months due to SE arthralgias (suspected PMR) from first vaccine of Moderna. Was advised not to get 2nd vaccine. Has an appt with rheum on 11/24. Pt states he has had SOB and has cardiology appt next month to see if he needs cardiac cath. CT of chest with contrast done last Thu by cardiology. No issues with urination. Denies dysuria; Has noticed BPs been being lower since being on prednisone, which surprises him since he knows the medication can raise BP. PAST MEDICAL HISTORY: PAST MEDICAL HISTORY Diagnosis Date - Chronic cholecystitis - Essential hypertension, benign - Myalgia and myositis, unspecified - Other and unspecified hyperlipidemia PAST SURGICAL HISTORY: PAST SURGICAL HISTORY Procedure Laterality Date - EXPLORATORY OF ABDOMEN Laparotomy, exp - LAPAROSCOPIC CHOLECYSTECTOMY 05/03/07 - PAST SURGICAL HISTORY OF back surgery - PAST SURGICAL HISTORY OF excision of kidney tumor FAMILY HISTORY: FAMILY HISTORY Problem Relation Age of Onset - Breast Cancer Sister x3 - Cancer Sister x2 lung - Cancer Brother appendix SOCIAL HISTORY: reports that he has never smoked. He has never used smokeless tobacco. He reports that he does not drink alcohol. PMH, PSH, FH, SH reviewed MEDICATIONS: acetaminophen/diphenhyd ramine (TYLENOL PM EXTRA STRENGTH ORAL) Take 2 tablets by mouth as needed. predniSONE (DELTASONE) 20 mg tablet 3 tabs a day by mouth daily Cholecalciferol, Vitamin D3, 125 mcg (5,000 unit) cap Take 5,000 Units by mouth once daily. spironolactone (ALDACTONE) 25 mg tablet Take 25 mg by mouth once daily. amLODIPine (NORVASC) 10 mg tablet Take 10 mg by mouth once daily. omeprazole (PRILOSEC) 20 mg capsule TAKE 1 CAPSULE BY MOUTH EVERY DAY 30 MINUTES BEFORE A MEAL lisinopril (ZESTRIL, PRINIVIL) 20 mg tablet Take 20 mg by mouth once daily. levothyroxine (SYNTHROID) 75 mcg tablet Take 75 mcg by mouth daily before breakfast. ALLERGIES: ALLERGIES Allergen Reactions - Erythromycin Hives Medications and allergies reviewed REVIEW OF SYSTEMS: GENERAL: No weight loss, malaise or fevers RESPIRATORY: see hpi CARDIOVASCULAR: Denies CP, palpitations, dizziness, (+)BLE swelling. GI: No nausea, vomiting, or diarrhea, denies constipation or melena : No history of dysuria, frequency or incontinence, denies hematuria or foamy urine. SKIN: Negative for lesions, rash, and itching PHYSICAL EXAM: Average BP (BpTru): 94/64 BpTRU BP #1 discard value (BpTru): 93/70 Pulse #1 Discard Value (BpTru): 96 beats/min BP #2 (BpTru): 102/70 Pulse #2 (BpTru): 93 beats/min BP #3 (BpTru): 106/64 Pulse #3 (BpTru): 95 beats/min BP #4 (BpTru): 95/62 Pulse #4 (BpTru): 100 beats/min BP #5 (BpTru): 91/61 Pulse #5 (BpTru): 100 beats/min BP #6 (BpTru): 91/65 Pulse #6 (BpTru): 101 beats/min Average BP (BpTru): 94/64 Average Pulse (BpTru): 98 beats/min BP cuff location: Left upper arm BP cuff size: regular adult General appearance: Well appearing, alert, in no acute distress, well-hydrated, well nourished. (more content not included)... Normal [facility] Monclnl Protein, Seron 11-12 K/L Ratio, Serum 1.09 Normal 0.26-1.65 [facility] Comment on above: Performed By: #### V ITD, SERMPA, PTHI, RFP ####[facility] [place], [place] [phone] Land[place], Free, Serum 16.6 mg/L Normal 3.30-19.40 [facility] Comment on above: Result Comment: Test performed by an immunoturbidimetric assay on Optilite instrument from [facility]. Immunoglobulin free light chain assay results should be interpreted in conjunction with other tests and in correlation with clinical picture. Performed By: #### V ITD, SERMPA, PTHI, RFP ####[address] [phone] Lambda, Free, Serum 15.2 mg/L Normal 5.7-26.3 [facility] Comment on above: Result Comment: Test performed by an immunoturbidimetric assay on Optilite instrument from [facility]. Immunoglobulin free light chain assay results should be interpreted in conjunction with other tests and in correlation with clinical picture. Performed By: #### V ITD, SERMPA, PTHI, RFP ####[place] [phone] MPA Result No M protein is identified. Normal No M protein is identified . [facility] Comment on above: Performed By: #### V ITD, SERMPA, PTHI, RFP ####[address] [place] [phone] RUST Serum IgA 101 mg/dL Normal 70-400 [facility] Comment on above: Performed By: #### V ITD, SERMPA, PTHI, RFP ####[address] [place] [phone] RUST Serum IgG 557 mg/dL Low 700-1600 [facility] Comment on above: Performed By: #### V ITD, SERMPA, PTHI, RFP ####[address] [place] [phone] MPA Serum IgM 75 mg/dL Normal 40-230 [facility] Comment on above: Performed By: #### V ITD, SERMPA, PTHI, RFP ####[address] [place] [phone] Staff Review Reviewed by Yancy Barr MD ([id number]) Normal [facility] Comment on above: Performed By: #### V ITD, SERMPA, PTHI, RFP ####[facility]level[address]ated[place], [place] [phone] Monoclonal Prot Uron 021 UMPA Result No M protein is identified. Normal No M protein is identified . [facility] Comment on above: Performed By: #### U RMPA, UAWMIC ####[facility] [address] AveClevelSlated[place], [place] [phone] UMPA Staff Review Reviewed by Ynacy Barr MD ([id number]) Normal [facility] Comment on above: Performed By: #### U RMPA, UAWMIC ####[facility], [place] [phone] PTH, Intacton 11-12-2020 PTH, Intact 28 pg/mL Normal 15-65 [facility] Comment on above: Performed By: #### V ITD, SERMPA, PTHI, RFP ####[facility], [place] [phone] Protein/Creatinine Ratioon 0 11-12-2020 Creatinine,Urine,Ran 168.5 mg/dL Normal 20-[address] [facility] Comment on above: Performed By: #### P RATIO ####[place] [address], [place] [phone] Protein (U) [Mass/Vol] 20 mg/dL Normal 0-20 [facility] Comment on above: Performed By: #### P RATIO ####[place] [address]ClevelSlated[address], [place] [phone] Protein/Creatinine Ratio 0.1 Normal <0.2 [facility] Comment on above: Performed By: #### P RATIO ####[place] [address]Cl[address] city hospitalandSold[address], [place] [phone] Renal Function Panelon 06-14 -2021 Albumin [Mass/Vol] 4.1 g/dL Normal 3.9-4.9 [facility] Comment on above: Performed By: #### V ITD, SERMPA, PTHI, RFP ####[place] [address] [place] [phone] Anion gap [Moles/Vol] 14 mmol/L Normal 9-[address] [facility] Comment on above: Performed By: #### V ITD, SERMPA, PTHI, RFP ####[place] [phone] Calcium [Mass/Vol] 8.9 mg/dL Normal 8.5-10.2 [facility] Comment on above: Performed By: #### V ITD, SERMPA, PTHI, RFP ####[place] [phone] Chloride [Moles/Vol] 108 mmol/L High 97-105 [facility] Comment on above: Performed By: #### V ITD, SERMPA, PTHI, RFP ####[place] [phone] CO2 [Moles/Vol] 20 mmol/L Low 22-30 [facility] Comment on above: Performed By: #### V ITD, SERMPA, PTHI, RFP ####[place] [address] [place] [phone] Creatinine [Mass/Vol] 1.54 mg/dL High 0.73-1.[address] [facility] Comment on above: Performed By: #### V ITD, SERMPA, PTHI, RFP ####[place] [address] [place] [phone] eGFR- Amer. 53 Normal [facility] Comment on above: Performed By: #### V ITD, SERMPA, PTHI, RFP ####[place] [address] [place] [phone] eGFR-All Other Races 44 . Normal [facility] Comment on above: Result Comment: eGFR (Estimated GFR) Units of measure: mL/min/1.73 meters squared eGFR is derived from the reexpressed MDRD Study equation using the following parameters: serum creatinine, age, gender and race. The creatinine assay has been calibrated to be traceable to IDMS. An eGFR <60 mL/min/1.73m2 for >3 months is consistent with chronic kidney disease. Refer to KDOQI guidelines for clinical interpretation. In patients with unstable renal function, e.g. those with acute kidney injury, the eGFR may not accurately reflect actual GFR. Performed By: #### V ITD, SERMPA, PTHI, RFP ####[facility] [place], [place] [phone] Glucose [Mass/Vol] 191 mg/dL High 74-99 [facility] Comment on above: Result Comment: The [place] [employer] (ADA) provides guidance for cutoff values for fasting glucose and random glucose. The ADA defines fasting as no caloric intake for at least 8 hours. Fasting plasma glucose results between 100 to 125 mg/dL indicate increased risk for diabetes (prediabetes). Fasting plasma glucose results greater than or equal to 126 mg/dL meet the criteria for diagnosis of diabetes. In the absence of unequivocal hyperglycemia, results should be confirmed by repeat testing. In a patient with classic symptoms of hyperglycemia or hyperglycemic crisis, random plasma glucose results greater than or equal to 200 mg/dL meet the criteria for diagnosis of diabetes. Reference: Standards of Medical Care in Diabetes 2016, [place] [employer]. Diabetes Care. 2016.39(Suppl 1). Performed By: #### V ITD, SERMPA, PTHI, RFP ####[facility] [address] [place], [place] [phone] Phosphate [Mass/Vol] 3.4 mg/dL Normal 2.7-4.8 [facility] Comment on above: Performed By: #### V ITD, SERMPA, PTHI, RFP ####[facility] [address]Fair[address], [place] [phone] Potassium [Moles/Vol] 4.9 mmol/L Normal 3.7-5.[address] [facility] Comment on above: Performed By: #### V ITD, SERMPA, PTHI, RFP ####[facility] [place] [phone] Sodium [Moles/Vol] 142 mmol/L Normal 136-144 [facility] Comment on above: Performed By: #### V ITD, SERMPA, PTHI, RFP ####[place] [address] [place] [phone] Urea nitrogen [Mass/Vol] 44 mg/dL High 9-24 [facility] Comment on above: Performed By: #### V ITD, SERMPA, PTHI, RFP ####[place] [address] [place] [phone] Urinalysis with Microscopico n 11-12-2020 Bilirubin, Urine Negative Normal Negative [facility] Comment on above: Performed By: #### U RMPA, UAWMIC ####[place] [address] [place] [phone] Clarity (U) Clear Normal Clear [facility] Comment on above: Performed By: #### U RMPA, UAWMIC ####[place] [address] [place] [phone] Color (U) Yellow Normal Yellow [facility] Comment on above: Performed By: #### U RMPA, UAWMIC ####[facility]CS[address] [place] [phone] Comments SEE COMMENT Normal [facility] Comment on above: Result Comment: N/A Performed By: #### U RMPA, UAWMIC ####[facility], [place] [phone] Glucose Ql (U) Negative Normal Negative [facility] Comment on above: Performed By: #### U RMPA, UAWMIC ####[facility]ClevelSlated[address], [place] [phone] Hemoglobin/Blood,Ur Negative Normal Negative [facility] Comment on above: Performed By: #### U RMPA, UAWMIC ####[facility]ClevelSlated[address], [place] [phone] Ketones Ql (U) Negative Normal Negative [facility] Comment on above: Performed By: #### U RMPA, UAWMIC ####[place] [address] [place] [phone] Leukest Negative Normal Negative [facility] Comment on above: Performed By: #### U RMPA, UAWMIC ####[place] [address] [place] [phone] Nitrite Ql (U) Negative Normal Negative [facility] Comment on above: Performed By: #### U RMPA, UAWMIC ####[place] [address] [place] [phone] pH (U) 5.0 [pH] Normal 5.0-8.0 [facility] Comment on above: Performed By: #### U RMPA, UAWMIC ####[place] [address] [place] [phone] Protein, Urine 1+ Critically abnormal Negative [facility] Comment on above: Performed By: #### U RMPA, UAWMIC ####[place] [address] [place] [phone] RBC 0-3 Normal 0-3 [facility] Comment on above: Performed By: #### U RMPA, UAWMIC ####[place] [address], [place] [phone] Specific [place], Ur 1.023 Normal 1.005-1 .03 0 [facility] Comment on above: Performed By: #### U RMPA, UAWMIC ####[facility] [address], [place] [phone] Urine Chris Comment SEE COMMENT Normal [facility] Comment on above: Result Comment: N/A Performed By: #### U RMPA, UAWMIC ####[facility] [place], [place] [phone] Urobilinogen (U) [Mass/Vol] Negative Normal Negative [facility] Comment on above: Performed By: #### U RMPA, UAWMIC ####[facility] [address] [place], [place] [phone] WBC 0-5 Normal 0-5 [facility] Comment on above: Performed By: #### U RMPA, UAWMIC ####[place] [address] [place], [place] [phone] Vitamin D 25 Hydroxyon 11-12 Vitamin D 25 Hydroxy 57.5 ng/mL Normal 31.0-80.0 [facility] Comment on above: Result Comment: Clas sification of 25 [place] Vitamin D status: Insufficiency/Moderate Deficiency: < or = 30 ng/mL Sufficiency/Optimal Levels: 31 to 80 ng/mL Toxicity: > 100 ng/mL Test performed by chemiluminescent immunoassay. Performed By: #### V ITD, SERMPA, PTHI, RFP ####[facility] [place], [place] [phone] [facility] [place] [facility] KULWANT ANDRADE ([id number]) 1940 M Date Time Provider Department 11/08/20 JAVI BATES During your visit today, we recorded the following information about you: Javi Bates MD 11/08/2020 8:23 PM Signed Let patient know I received a copy of the Lung CTA he had done on 11/01/2020 and there is the presence of a 1 cm noncalcified nodule in the left lower base. Radiology has recommended a PET scan and therefore I want her to see pulmonary. Order placed. Serina Cespedes 11/09/2020 9:00 AM Signed TC to pt. LM to call back for results and recommendations from PCP. Serina Cespedes 11/12/2020 3:02 PM Signed TC to pt. LM to call the office for results. Serina León RN 11/13/2020 8:26 AM Signed Pt called, verified by name and birthdate. Patient notified of results and provider's instructions. Patient verbalizes understanding. Call transferred to PSR to make pulmonology apt Ankush Tee [facility] 11/13/2020 8:35 AM Signed Patient stated he is seeing Pulmonology at [facility]. He states it is Dr. Mckeon and he will have the records sent to PCP. Allergies As of Date: 11/08/2020 Noted Allergy Reaction ERYTHROMYCIN 04/15/2005 4 - Hives Date Reviewed: 10/11/2020 Reviewed by: Javi Bates MD - Fully Assessed Reason for Visit: Results [95] Primary Visit Diagnosis:Lung nodule [R91.1] Order(s):CONSULT TO PULMONARY MEDICINE [[id number]] Order #: [id number]: 1 Prescriptions as of 11/08/2020 Sig: TYLENOL PM EXTRA STRENGTH ORAL Take 2 tablets by mouth as ne* PREDNISONE 20 MG TABLET 3 tabs a day by mouth daily CHOLECALCIFEROL (VITAMIN D3) * Take 5,000 Units by mouth onc* SPIRONOLACTONE 25 MG TABLET Take 25 mg by mouth once gaetano* OMEPRAZOLE 20 MG CAPSULE,GIANNI* TAKE 1 CAPSULE BY MOUTH EVERY* LISINOPRIL 20 MG TABLET Take 20 mg by mouth once gaetano* X AMLODIPINE 10 MG TABLET Take 10 mg by mouth once gaetano* LEVOTHYROXINE 75 MCG TABLET Take 75 mcg by mouth daily be* Problem List As Of Date 11/08/2020 Noted Resolved HYPERLIPIDEMIA NEC/NOS [E78.5] BENIGN HYPERTENSION [I10] PLANTAR NERVE LESION [G57.60] 04/15/2005 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] 04/15/2005 Arthralgia [M25.50] 10/11/2020 ESR raised [R70.0] 10/11/2020 CRP elevated [R79.82] 10/11/2020 BART (acute kidney injury) (HCC) [N17.9] 10/11/2020 Dehydration [E86.0] 10/11/2020 Hypercalcemia [E83.52] 10/11/2020 Low serum parathyroid hormone (PTH) [R79.89] 10/11/2020 Encounter Status:Closed by ANKUSH LEÓN RN on 11/13/20 [facility] CNPNon 10-22-2020 CNPN Telephone [facility] KULWANT ANDRADE ([id number]) 1940 M Date Time Provider Department 10/22/20 JAVI BATES During your visit today, we recorded the following information about you: Javi Bates MD 10/22/2020 11:45 PM Signed Let patient know calcium labs ok. BMP shows continue kidney impairment. Order placed for consult to see renal. Forest Sebastian LPN 10/23/2020 9:10 AM Signed Left message for pt to contact office. Forest Alberts RN 10/23/2020 12:30 PM Signed Patient returned call and given provider's message below with verbalized understanding. [facility]. Allergies As of Date: 10/22/2020 Noted Allergy Reaction ERYTHROMYCIN 04/15/2005 4 - Hives Date Reviewed: 10/11/2020 Reviewed by: Javi Bates MD - Fully Assessed Reason for Visit: Results [95] Primary Visit Diagnosis:Stage 3b chronic kidney disease (HCC) [N18.32] Order(s):CONSULT TO NEPHROLOGY [9037] Order #: [id number]: 1 FUTURE Prescriptions as of 10/22/2020 Sig: TYLENOL PM EXTRA STRENGTH ORAL Take 2 tablets by mouth as ne* PREDNISONE 20 MG TABLET 3 tabs a day by mouth daily CHOLECALCIFEROL (VITAMIN D3) * Take 5,000 Units by mouth onc* SPIRONOLACTONE 25 MG TABLET Take 25 mg by mouth once gaetano* AMLODIPINE 10 MG TABLET Take 10 mg by mouth once gaetano* OMEPRAZOLE 20 MG CAPSULE,GIANNI* TAKE 1 CAPSULE BY MOUTH EVERY* LISINOPRIL 20 MG TABLET Take 20 mg by mouth once gaetano* LEVOTHYROXINE 75 MCG TABLET Take 75 mcg by mouth daily be* Problem List As Of Date 10/22/2020 Noted Resolved HYPERLIPIDEMIA NEC/NOS [E78.5] BENIGN HYPERTENSION [I10] PLANTAR NERVE LESION [G57.60] 04/15/2005 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 Comment on above: Performed By: #### B MP, ICA, PTHI ####[facility] [place], [place] [phone] Calcium [Mass/Vol] 9.3 mg/dL Normal 8.5-10.2 [facility] Comment on above: Performed By: #### B MP, ICA, PTHI ####[facility] [address] [place], [place] [phone] Chloride [Moles/Vol] 107 mmol/L High 97-105 [facility] Comment on above: Performed By: #### B MP, ICA, PTHI ####[facility] [address], [place] [phone] CO2 [Moles/Vol] 22 mmol/L Normal 22-30 [facility] Comment on above: Performed By: #### B MP, ICA, PTHI ####[facility] [place], [place] [phone] Creatinine [Mass/Vol] 2.03 mg/dL High 0.73-1.[address] [facility] Comment on above: Performed By: #### B MP, ICA, PTHI ####[place] [address] [place], [place] [phone] eGFR- Amer. 39 Normal [facility] Comment on above: Performed By: #### B MP, ICA, PTHI ####[facility] [place], [place] [phone] eGFR-All Other Races 32 . Normal [facility] Comment on above: Result Comment: eGFR (Estimated GFR) Units of measure: mL/min/1.73 meters squared eGFR is derived from the reexpressed MDRD Study equation using the following parameters: serum creatinine, age, gender and race. The creatinine assay has been calibrated to be traceable to IDMS. An eGFR <60 mL/min/1.73m2 for >3 months is consistent with chronic kidney disease. Refer to KDOQI guidelines for clinical interpretation. In patients with unstable renal function, e.g. those with acute kidney injury, the eGFR may not accurately reflect actual GFR. Performed By: #### B MP, ICA, PTHI ####[facility] [place], [place] [phone] Glucose [Mass/Vol] 93 mg/dL Normal 74-99 [facility] Comment on above: Result Comment: The [place] Diabetes [employer] (ADA) provides guidance for cutoff values for fasting glucose and random glucose. The ADA defines fasting as no caloric intake for at least 8 hours. Fasting plasma glucose results between 100 to 125 mg/dL indicate increased risk for diabetes (prediabetes). Fasting plasma glucose results greater than or equal to 126 mg/dL meet the criteria for diagnosis of diabetes. In the absence of unequivocal hyperglycemia, results should be confirmed by repeat testing. In a patient with classic symptoms of hyperglycemia or hyperglycemic crisis, random plasma glucose results greater than or equal to 200 mg/dL meet the criteria for diagnosis of diabetes. Reference: Standards of Medical Care in Diabetes 2016, [place] [employer]. Diabetes Care. 2016.39(Suppl 1). Performed By: #### B MP, ICA, PTHI ####[address] [phone] Potassium [Moles/Vol] 4.2 mmol/L Normal 3.7-5.[address] [facility] Comment on above: Performed By: #### B MP, ICA, PTHI ####[address] [phone] Sodium [Moles/Vol] 141 mmol/L Normal 136-144 [facility] Comment on above: Performed By: #### B MP, ICA, PTHI ####[address] [phone] Urea nitrogen [Mass/Vol] 61 mg/dL High 9-24 [facility] Comment on above: Performed By: #### B MP, ICA, PTHI ####[address] [phone] Calcium, Ionizedon 1 Calcium [Moles/Vol] 1.27 mmol/L Normal 1.08-1.30 [facility] Comment on above: Performed By: #### B MP, ICA, PTHI ####[address] [phone] Calcium, Ionized 1.34 mmol/L High 1.08-1.[address] [facility] Comment on above: Performed By: #### B MP, ICA, PTHI ####[facility] [address] [place], [place] [phone] PTH, Intacton 10-18-2020 PTH, Intact 31 pg/mL Normal 15-65 [facility] Comment on above: Performed By: #### B MP, ICA, PTHI ####[facility] [address] [place], [place] [phone] CNOVon 10-11-2020 CNOV Office Visit ([facility] ) KULWANT ANDRADE ([id number]) 1940 M Date Time Provider Department 10/11/20 8:40 AM [facility] your visit today, we recorded the following information about you: Temperature Pulse Respiration Blood pressure 97.8 degrees 101/minute 14/minute 98/56 Weight 79.2 kg Jvai Bates MD 10/11/2020 4:45 PM Signed Chief Complaint Patient presents with: Follow Up Pain: joint pain, ankles, hips Shortness of Breath: onset 07/30/20 after vaccine HPI Kulwant Andrade is a 80 year old male who presents here today for Above Complaints.. Patient was seen in [facility] care and in the office last week and this past Thursday for above concerns. He has been having joint pain: wrists, elbows, knees, ankles, and hips, feels like an ache which is constant. Taking warm baths which is beneficial. Noticed this pain started after his first covid vaccine 07/30/2020. Denies any fever or chills. No night sweats. He feels like he has progressively gotten weaker in the last several Months. Hard to get out of a chair. He has not been able to work on his [employer] cars like he likes to do. He was told by Dr. Calabrese about a year ago he may have Lupus but patient says he has not had any of the symptoms like his did who with Lupus 6 yrs ago. No headache's, temporal pain or pain with chewing. He had been taking NSAID's regularly up to a few weeks ago. Dr. Calabrese put him on a steroid taper starting at 30 mg and going down to 10 mg over a 15 day period on 08/21/2020. Patient felt no better with this. He was then put on dexamethasone 2 mg 3 for 5 days, 2 for 5 days, then one for 5 days on 09/05/2020. Though pharmacy shows a refill of the dexamethasone on 10/05/2020 patient says he has not taken any other steroids. Labs recently showed abnormal renal panel, he also had an elevated calcium , ionized calcium with a low PTH. Most recently rheumatoid panel was abnormal with a ERS of 109 (in July was 7), CRP of 1.3 and positive KHANH Past medical history, appointments, medications, allergies reviewed. Previous Medical History PAST MEDICAL HISTORY Diagnosis Date - Chronic cholecystitis - Essential hypertension, benign - Myalgia and myositis, unspecified - Other and unspecified hyperlipidemia Previous Surgical History PAST SURGICAL HISTORY Procedure Laterality Date - EXPLORATORY OF ABDOMEN Laparotomy, exp - LAPAROSCOPIC CHOLECYSTECTOMY 05/03/07 - PAST SURGICAL HISTORY OF back surgery - PAST SURGICAL HISTORY OF excision of kidney tumor Family History FAMILY HISTORY Problem Relation Age of Onset - Breast Cancer Sister x3 - Cancer Sister x2 lung - Cancer Brother appendix Patient Allergies ALLERGIES Allergen Reactions - Erythromycin Hives Current Medications Current Outpatient Medications on File Prior to Visit Medication Sig - acetaminophen/diphenhyd ramine (TYLENOL PM EXTRA STRENGTH ORAL) Take 2 tablets by mouth as needed. - Cholecalciferol, Vitamin D3, 125 mcg (5,000 unit) cap Take 5,000 Units by mouth once daily. - spironolactone (ALDACTONE) 25 mg tablet Take 25 mg by mouth once daily. - amLODIPine (NORVASC) 10 mg tablet Take 10 mg by mouth once daily. - omeprazole (PRILOSEC) 20 mg capsule TAKE 1 CAPSULE BY MOUTH EVERY DAY 30 MINUTES BEFORE A MEAL - lisinopril (ZESTRIL, PRINIVIL) 20 mg tablet Take 20 mg by mouth once daily. - levothyroxine (SYNTHROID) 75 mcg tablet Take 75 mcg by mouth daily before breakfast. No current facility-administered medications on file prior to visit. Social History Social History Tobacco Use - Smoking status: Never Smoker - Smokeless tobacco: Never Used Substance Use Topics - Alcohol use: No - Drug use: Not on file Review of Symptoms REVIEW OF SYSTEMS See HPI EXAM: BP 98/56 (BP Site: Left Arm, BP Position: Sitting, BP Cuff Size: Regular Adult) Pulse 101 Temp 36.6 ?C (97.8 ?F) (Tympanic) Resp 14 Wt 79.2 kg (174 lb 9.6 oz) SpO2 100% General Appearance: Well appearing, alert, in no acute distress, well-hydrated, well nourished.. Lungs: Lungs clear to auscultation. No wheezing, rhonchi, rales.. Heart: RRR without murmur, gallop, or rubs. No ectopy. Extremities: No deformities, edema, skin discoloration, Peripheral Pulses: Normal. Neurologic: Gait normal. Reflexes normal and symmetric. Sensation to light touch and crainal nerves 2-12 intact.. Muscular: Upper extremity strength seems normal. Knee extension strength was good. Hip flexion showed slight weakness on both sides and worse on the right. Health Maintenance List HEPATITIS C SCREENING Never done DTAP,TDAP,TD(1 - Tdap) Never done COLORECTAL CANCER SCREENING Never done SHINGRIX VACCINE(1 of 2) Never done ADVANCE DIRECTIVE DISCUSSION Never done PNEUMOVAX AGE 65 AND OVER WITH 5YR LOOKBACK(1) Never done COVID-19 VACCIN (more content not included)... Normal [facility] ANAon 10-08-2020 KHANH by EIA 1.4 OD Ratio Normal [facility] Comment on above: Result Comment: OD R atio is interpreted as follows: Negative <1.0 Positive >=1.0 Performed By: #### R FP, CBCDIF, ICA, CRP, WSR, VITD, ANAS, SERFOL, PTHI ####[facility] [place], [place] [phone] KHANH by EIA, Qual Positive Critically abnormal Negative [facility] Comment on above: Result Comment: Resu lts are to be used as an aid to diagnosis. Confirmation testing for specific antibodies should be run if a positive assay is obtained. A positive result suggests certain diseases and should be confirmed by clinical findings. Performed By: #### R FP, CBCDIF, ICA, CRP, WSR, VITD, ANAS, SERFOL, PTHI ####[place] [address] [place] [phone] C-Reactive Proteinon 021 C-Reactive Protein 1.3 mg/dL High <0.9 [facility] Comment on above: Performed By: #### R FP, CBCDIF, ICA, CRP, WSR, VITD, ANAS, SERFOL, PTHI ####[place] [address] [place] [phone] CBC and Differentialon 10-08 Abs Baso 0.05 k/uL Normal <0.11 [facility] Comment on above: Performed By: #### R FP, CBCDIF, ICA, CRP, WSR, VITD, ANAS, SERFOL, PTHI ####[place] [address] [place] [phone] Abs [place] 0.70 k/uL Normal <0.87 [facility] Comment on above: Performed By: #### R FP, CBCDIF, ICA, CRP, WSR, VITD, ANAS, SERFOL, PTHI ####[place] [address] [place] [phone] Abs Neut 4.06 k/uL Normal 1.45-7.50 [facility] Comment on above: Performed By: #### R FP, CBCDIF, ICA, CRP, WSR, VITD, ANAS, SERFOL, PTHI ####[place] [address] [place] [phone] Absolute nRBC <0.01 Normal <0.01 [facility] Comment on above: Performed By: #### R FP, CBCDIF, ICA, CRP, WSR, VITD, ANAS, SERFOL, PTHI ####[place] [address] [place] [phone] Basophils/100 WBC (Bld) 0.8 % Normal [facility] Comment on above: Performed By: #### R FP, CBCDIF, ICA, CRP, WSR, VITD, ANAS, SERFOL, PTHI ####[place] [address] [address] [place] [phone] DTYPE Auto Diff Normal [facility] Comment on above: Performed By: #### R FP, CBCDIF, ICA, CRP, WSR, VITD, ANAS, SERFOL, PTHI ####[place] [address] [place] [phone] Eosinophils (Bld) [#/Vol] 0.27 10*3/uL Normal <0.46 [facility] Comment on above: Performed By: #### R FP, CBCDIF, ICA, CRP, WSR, VITD, ANAS, SERFOL, PTHI ####[place] [address] [address] [place] [phone] Eosinophils/100 WBC (Bld) 4.1 % Normal [facility] Comment on above: Performed By: #### R FP, CBCDIF, ICA, CRP, WSR, VITD, ANAS, SERFOL, PTHI ####[place] [address] [place] [phone] Erythrocyte distribution width (RBC) [Ratio] 12.0 % Normal 11.5-15.0 [facility] Comment on above: Performed By: #### R FP, CBCDIF, ICA, CRP, WSR, VITD, ANAS, SERFOL, PTHI ####[place] [address] [address] [phone] Hematocrit (Bld) [Volume fraction] 45.1 % Normal 39.0-51.0 [facility] Comment on above: Performed By: #### R FP, CBCDIF, ICA, CRP, WSR, VITD, ANAS, SERFOL, PTHI ####[place] [address] [place], [place] [phone] Hemoglobin (Bld) [Mass/Vol] 14.6 g/dL Normal 13.0-17.0 [facility] Comment on above: Performed By: #### R FP, CBCDIF, ICA, CRP, WSR, VITD, ANAS, SERFOL, PTHI ####[place] [phone] Lymphocytes (Bld) [#/Vol] 1.47 10*3/uL Normal 1.00-4.00 [facility] Comment on above: Performed By: #### R FP, CBCDIF, ICA, CRP, WSR, VITD, ANAS, SERFOL, PTHI ####[place] [phone] Lymphocytes/100 WBC (Bld) 22.4 % Normal [facility] Comment on above: Performed By: #### R FP, CBCDIF, ICA, CRP, WSR, VITD, ANAS, SERFOL, PTHI ####[place] [phone] MCH 31.3 pG Normal 26.0-34.0 [facility] Comment on above: Performed By: #### R FP, CBCDIF, ICA, CRP, WSR, VITD, ANAS, SERFOL, PTHI ####[address] [place], [place] [phone] MCHC (RBC) [Mass/Vol] 32.4 g/dL Normal 30.5-36.[address] [facility] Comment on above: Performed By: #### R FP, CBCDIF, ICA, CRP, WSR, VITD, ANAS, SERFOL, PTHI ####[address] [place] [phone] MCV (RBC) [Entitic vol] 96.8 fL Normal 80.0-100.0 [facility] Comment on above: Performed By: #### R FP, CBCDIF, ICA, CRP, WSR, VITD, ANAS, SERFOL, PTHI ####[place] [address], [place] [phone] Monocytes/100 WBC (Bld) 10.7 % Normal [facility] Comment on above: Performed By: #### R FP, CBCDIF, ICA, CRP, WSR, VITD, ANAS, SERFOL, PTHI ####[place] [address] [address] [phone] Neutrophils/100 WBC (Bld) 62.0 % Normal [facility] Comment on above: Performed By: #### R FP, CBCDIF, ICA, CRP, WSR, VITD, ANAS, SERFOL, PTHI ####[place] [address], [place] [phone] NRBCs 0.0 /100 WBC Normal 0 [facility] Comment on above: Performed By: #### R FP, CBCDIF, ICA, CRP, WSR, VITD, ANAS, SERFOL, PTHI ####[place] [address], [place] [phone] Platelet mean volume (Bld) [Entitic vol] 9.1 fL Normal 9.0-12.7 [facility] Comment on above: Performed By: #### R FP, CBCDIF, ICA, CRP, WSR, VITD, ANAS, SERFOL, PTHI ####[place] [address], [place] [phone] Platelets (Bld) [#/Vol] 512 10*3/uL High 150-400 [facility] Comment on above: Performed By: #### R FP, CBCDIF, ICA, CRP, WSR, VITD, ANAS, SERFOL, PTHI ####[facility] [address] [place], [place] [phone] RBC (Bld) [#/Vol] 4.66 10*6/uL Normal 4.20-6.00 [facility] Comment on above: Performed By: #### R FP, CBCDIF, ICA, CRP, WSR, VITD, ANAS, SERFOL, PTHI ####[facility] [address] [place], [place] [phone] WBC (Bld) [#/Vol] 6.55 10*3/uL Normal 3.70-11.00 [facility] Comment on above: Performed By: #### R FP, CBCDIF, ICA, CRP, WSR, VITD, ANAS, SERFOL, PTHI ####[facility] [address] [place], [place] [phone] BRENDAOVon 10-08-2020 [facility] KULWANT ANDRADE ([id number]) 1940 M Date Time Provider Department 10/08/20 8:40 AM [facility] your visit today, we recorded the following information about you: Pulse Respiration Blood pressure 72/minute 20/minute 102/70 Martha Flower APRN.[employer] 10/08/2020 9:11 AM Signed This is a 80 year old male who presents today with: No chief complaint on file. HISTORY OF PRESENT ILLNESS: Kulwant Andrade is a 80 year old male. No chief complaint on file. Patient presents to the office for urgent care follow up for body chills. Went to urgent care on 10/02/2020 for myalgias. Blood work was completed and given Toradol. Concerns for kidney injury due to possible NSAID use, his creatinine 2.03, bun 43, potassium 5.2, calcium 10.2. Patient today still refers he is having joint pain: wrists, elbows, knees, ankles, and hips, feels like an ache which is constant. Taking warm baths which is beneficial. Noticed this pain started after his first covid vaccine 07/30/2020. Denies any fever or chills. Brought lab work in that he had completed in July 2020, showed reduce kidney function and + KHANH. Patient has not had any ibuprofen for a couple of weeks as instructed from urgent care. PAST MEDICAL HISTORY: PAST MEDICAL HISTORY Diagnosis Date - Chronic cholecystitis - Essential hypertension, benign - Myalgia and myositis, unspecified - Other and unspecified hyperlipidemia PAST SURGICAL HISTORY Procedure Laterality Date - EXPLORATORY OF ABDOMEN Laparotomy, exp - LAPAROSCOPIC CHOLECYSTECTOMY 05/03/07 - PAST SURGICAL HISTORY OF back surgery - PAST SURGICAL HISTORY OF excision of kidney tumor ALLERGIES Erythromycin MEDICATIONS Current Outpatient Medications Medication Sig - Cholecalciferol, Vitamin D3, 125 mcg (5,000 unit) cap Take 5,000 Units by mouth once daily. - spironolactone (ALDACTONE) 25 mg tablet Take 25 mg by mouth once daily. - amLODIPine (NORVASC) 10 mg tablet Take 10 mg by mouth once daily. - omeprazole (PRILOSEC) 20 mg capsule TAKE 1 CAPSULE BY MOUTH EVERY DAY 30 MINUTES BEFORE A MEAL - lisinopril (ZESTRIL, PRINIVIL) 20 mg tablet Take 20 mg by mouth once daily. - levothyroxine (SYNTHROID) 75 mcg tablet Take 75 mcg by mouth daily before breakfast. No current facility-administered medications for this visit. FAMILY HISTORY Problem Relation Age of Onset - Breast Cancer Sister x3 - Cancer Sister x2 lung - Cancer Brother appendix Social History Tobacco Use - Smoking status: Never Smoker - Smokeless tobacco: Never Used Substance Use Topics - Alcohol use: No - Drug use: Not on file REVIEW OF SYSTEMS GENERAL: No weight loss, malaise or fevers/chills HEENT: Negative for frequent or significant headaches, No changes in hearing or vision. NECK: Negative for lumps, goiter, pain and significant neck swelling RESPIRATORY: Negative for cough, hemoptysis, wheezing, dyspnea or shortness of breath CARDIOVASCULAR: Negative for chest pain, leg swelling, orthopnea, or palpitations GI: No nausea, vomiting, or diarrhea/constipation. No hematochezia/melena. No heartburn or reflux symptoms. : No history of dysuria, frequency or incontinence MUSCULOSKELETAL: + joint pain SKIN: Negative for lesions, rash, and itching ENDOCRINE: Negative for cold or heat intolerance, polyuria, polydipsia and goiter NEURO: No history of headaches, syncope, paralysis, seizures or tremors MOOD: Negative for depression, anxiety, or suicidal ideation. EXAM: BP 102/70 Pulse 72 Resp 20 PHYSICAL EXAM: General Appearance: Well appearing, alert, in no acute distress, well-hydrated, well nourished. Skin: Skin color, texture, turgor normal, no suspicious rashes or lesions. Head: Normocephalic, no masses, lesions, tenderness or abnormalities. Eyes: Anicteric sclera. Extraocular movements are intact. Lungs: Lungs clear to auscultation. No wheezing, rhonchi, rales. Heart: RRR without murmur, gallop, or rubs. No ectopy. Extremities: No deformities, edema, skin discoloration, clubbing or cyanosis. Good capillary refill. . Musculoskeletal: Joint pain: Wrists, elbows, hips, knees, and ankles- tender with palpation, but no swelling or erythema. Normal WNL. Peripheral Pulses: Normal, Capillary refill <2secs, strong peripheral pulses, Pulses palpable. Neurologic: Gait normal. Reflexes normal and symmetric. Sensation grossly intact. Strength 5/5 bilaterally. ASSESSMENT/PLAN: 1. Myalgia - ICD9: 729.1, ICD10: M79.10 - Instructued the patient to get blood work completed today. - May use Tylenol 650 mg every 6 hours as needed for pain, he may continue to use warm baths or heating pad to help with the joint pain as well. - Follow-up pending lab results. - Patient refers he had a positive KHANH, may need referral to rheumatology pending lab results. - (more content not included)... Normal [facility] Calcium, Ionizedon 1 Calcium [Moles/Vol] 1.33 mmol/L High 1.08-1.30 [facility] Comment on above: Performed By: #### R FP, CBCDIF, ICA, CRP, WSR, VITD, ANAS, SERFOL, PTHI ####[place] [address], [place] [phone] Calcium, Ionized 1.37 mmol/L High 1.08-1.[address] [facility] Comment on above: Performed By: #### R FP, CBCDIF, ICA, CRP, WSR, VITD, ANAS, SERFOL, PTHI ####[place] [address], [place] [phone] Folate, Serumon 10-08-2020 Folate [Mass/Vol] 9.4 ng/mL Normal >4.[address] [facility] Comment on above: Performed By: #### R FP, CBCDIF, ICA, CRP, WSR, VITD, ANAS, SERFOL, PTHI ####[address] [place] [phone] PTH, Intacton 10-08-2020 PTH, Intact 12 pg/mL Low 15-65 [facility] Comment on above: Performed By: #### R FP, CBCDIF, ICA, CRP, WSR, VITD, ANAS, SERFOL, PTHI ####[address] [place] [phone] Remote B12 (for [facility], [facility] use only )on 10-08-2020 Cobalamin (Vitamin B12) [Mass/Vol] 451 pg/mL Normal 232-1245 [facility] Comment on above: Performed By: #### R B12 ####[place] [address], [place] [phone] Renal Function Panelon 10-08 Albumin [Mass/Vol] 4.3 g/dL Normal 3.9-4.9 [facility] Comment on above: Performed By: #### R FP, CBCDIF, ICA, CRP, WSR, VITD, ANAS, SERFOL, PTHI ####[place] [address] [place] [phone] Anion gap [Moles/Vol] 13 mmol/L Normal 9-[address] [facility] Comment on above: Performed By: #### R FP, CBCDIF, ICA, CRP, WSR, VITD, ANAS, SERFOL, PTHI ####[place] [address] [place] [phone] Calcium [Mass/Vol] 10.2 mg/dL Normal 8.5-10.2 [facility] Comment on above: Performed By: #### R FP, CBCDIF, ICA, CRP, WSR, VITD, ANAS, SERFOL, PTHI ####[place] [phone] Chloride [Moles/Vol] 104 mmol/L Normal 97-105 [facility] Comment on above: Performed By: #### R FP, CBCDIF, ICA, CRP, WSR, VITD, ANAS, SERFOL, PTHI ####[place] [address] [place] [phone] CO2 [Moles/Vol] 25 mmol/L Normal 22-30 [facility] Comment on above: Performed By: #### R FP, CBCDIF, ICA, CRP, WSR, VITD, ANAS, SERFOL, PTHI ####[place] [address] [place] [phone] Creatinine [Mass/Vol] 1.82 mg/dL High 0.73-1.[address] [facility] Comment on above: Performed By: #### R FP, CBCDIF, ICA, CRP, WSR, VITD, ANAS, SERFOL, PTHI ####[place] [address] [place] [phone] eGFR- Amer. 44 Normal [facility] Comment on above: Performed By: #### R FP, CBCDIF, ICA, CRP, WSR, VITD, ANAS, SERFOL, PTHI ####[facility] [place], [place] [phone] eGFR-All Other Races 36 . Normal [facility] Comment on above: Result Comment: eGFR (Estimated GFR) Units of measure: mL/min/1.73 meters squared eGFR is derived from the reexpressed MDRD Study equation using the following parameters: serum creatinine, age, gender and race. The creatinine assay has been calibrated to be traceable to IDMS. An eGFR <60 mL/min/1.73m2 for >3 months is consistent with chronic kidney disease. Refer to KDOQI guidelines for clinical interpretation. In patients with unstable renal function, e.g. those with acute kidney injury, the eGFR may not accurately reflect actual GFR. Performed By: #### R FP, CBCDIF, ICA, CRP, WSR, VITD, ANAS, SERFOL, PTHI ####[facility] [place], [place] [phone] Glucose [Mass/Vol] 99 mg/dL Normal 74-99 [facility] Comment on above: Result Comment: The [place] [employer] (ADA) provides guidance for cutoff values for fasting glucose and random glucose. The ADA defines fasting as no caloric intake for at least 8 hours. Fasting plasma glucose results between 100 to 125 mg/dL indicate increased risk for diabetes (prediabetes). Fasting plasma glucose results greater than or equal to 126 mg/dL meet the criteria for diagnosis of diabetes. In the absence of unequivocal hyperglycemia, results should be confirmed by repeat testing. In a patient with classic symptoms of hyperglycemia or hyperglycemic crisis, random plasma glucose results greater than or equal to 200 mg/dL meet the criteria for diagnosis of diabetes. Reference: Standards of Medical Care in Diabetes 2016, [place] [employer]. Diabetes Care. 2016.39(Suppl 1). Performed By: #### R FP, CBCDIF, ICA, CRP, WSR, VITD, ANAS, SERFOL, PTHI ####[facility] [place], [place] [phone] Phosphate [Mass/Vol] 3.8 mg/dL Normal 2.7-4.8 [facility] Comment on above: Performed By: #### R FP, CBCDIF, ICA, CRP, WSR, VITD, ANAS, SERFOL, PTHI ####[facility] [place], [place] [phone] Potassium [Moles/Vol] 4.5 mmol/L Normal 3.7-5.[address] [facility] Comment on above: Performed By: #### R FP, CBCDIF, ICA, CRP, WSR, VITD, ANAS, SERFOL, PTHI ####[facility] [place], [place] [phone] Sodium [Moles/Vol] 142 mmol/L Normal 136-144 [facility] Comment on above: Performed By: #### R FP, CBCDIF, ICA, CRP, WSR, VITD, ANAS, SERFOL, PTHI ####[place] [address] [address], [place] [phone] Urea nitrogen [Mass/Vol] 41 mg/dL High 9-24 [facility] Comment on above: Performed By: #### R FP, CBCDIF, ICA, CRP, WSR, VITD, ANAS, SERFOL, PTHI ####[place] [address] [place], [place] [phone] Sed Rate Westergrenon 2020 Sed Rate Westergren 109 mm/hr High 0-15 [facility] Comment on above: Performed By: #### R FP, CBCDIF, ICA, CRP, WSR, VITD, ANAS, SERFOL, PTHI ####[facility] [place], [place] [phone] Vitamin D 25 Hydroxyon 10-08 Vitamin D 25 Hydroxy 60.9 ng/mL Normal 31.0-80.0 [facility] Comment on above: Result Comment: Clas sification of 25 [place] Vitamin D status: Insufficiency/Moderate Deficiency: < or = 30 ng/mL Sufficiency/Optimal Levels: 31 to 80 ng/mL Toxicity: > 100 ng/mL Test performed by chemiluminescent immunoassay. Performed By: #### R FP, CBCDIF, ICA, CRP, WSR, VITD, ANAS, SERFOL, PTHI ####[facility], [place] [phone] CBC and Differentialon 10-02 Abs Baso 0.03 k/uL Normal <0.11 [facility] Comment on above: Performed By: #### C BCDIF, CMP, TSH ####[place] [address] [place] [phone] Abs [place] 0.73 k/uL Normal <0.87 [facility] Comment on above: Performed By: #### C BCDIF, CMP, TSH ####[place] [address] [place] [phone] Abs Neut 5.77 k/uL Normal 1.45-7.50 [facility] Comment on above: Performed By: #### C BCDIF, CMP, TSH ####[place] [address] [place] [phone] Absolute nRBC <0.01 Normal <0.01 [facility] Comment on above: Performed By: #### C BCDIF, CMP, TSH ####[place] [address] [place] [phone] Basophils/100 WBC (Bld) 0.4 % Normal [facility] Comment on above: Performed By: #### C BCDIF, CMP, TSH ####[place] [address] [place] [phone] DTYPE Auto Diff Normal [facility] Comment on above: Performed By: #### C BCDIF, CMP, TSH ####[place] [address] [place] [phone] Eosinophils (Bld) [#/Vol] 0.59 10*3/uL High <0.46 [facility] Comment on above: Performed By: #### C BCDIF, CMP, TSH ####[facility] [phone] Eosinophils/100 WBC (Bld) 7.5 % Normal [facility] Comment on above: Performed By: #### C BCDIF, CMP, TSH ####[facility] [place] [phone] Erythrocyte distribution width (RBC) [Ratio] 12.4 % Normal 11.5-15.0 [facility] Comment on above: Performed By: #### C BCDIF CMP, TSH ####[facility] [place] [phone] Hematocrit (Bld) [Volume fraction] 40.5 % Normal 39.0-51.0 [facility] Comment on above: Performed By: #### C BCDIF, CMP, TSH ####[facility] [place] [phone] Hemoglobin (Bld) [Mass/Vol] 13.3 g/dL Normal 13.0-17.0 [facility] Comment on above: Performed By: #### C BCDIF, CMP, TSH ####[facility] [phone] Lymphocytes (Bld) [#/Vol] 0.76 10*3/uL Low 1.00-4.00 [facility] Comment on above: Performed By: #### C BCDIF, CMP, TSH ####[facility]levelandMeredith [place] [phone] Lymphocytes/100 WBC (Bld) 9.6 % Normal [facility] Comment on above: Performed By: #### C BCDIF, CMP, TSH ####[facility]leveland[address]eredith [place] [phone] MCH 31.1 pG Normal 26.0-34.0 [facility] Comment on above: Performed By: #### C BCDIF, CMP, TSH ####[facility]ClevelSlatedale, [place] [phone] MCHC (RBC) [Mass/Vol] 32.8 g/dL Normal 30.5-36.[address] [facility] Comment on above: Performed By: #### C BCDIF, CMP, TSH ####[facility]level[address]ated[address], [place] [phone] MCV (RBC) [Entitic vol] 94.8 fL Normal 80.0-100.0 [facility] Comment on above: Performed By: #### C BCDIF, CMP, TSH ####[facility], [place] [phone] Monocytes/100 WBC (Bld) 9.3 % Normal [facility] Comment on above: Performed By: #### C BCDIF, CMP, TSH ####[facility], [place] [phone] Neutrophils/100 WBC (Bld) 73.2 % Normal [facility] Comment on above: Performed By: #### C BCDIF, CMP, TSH ####[facility], [place] [phone] NRBCs 0.0 /100 WBC Normal 0 [facility] Comment on above: Performed By: #### C BCDIF, CMP, TSH ####[facility] [address]leveland[address], [place] [phone] Platelet mean volume (Bld) [Entitic vol] 9.3 fL Normal 9.0-12.7 [facility] Comment on above: Performed By: #### C BCDIF, CMP, TSH ####[facility], [place] [phone] Platelets (Bld) [#/Vol] 354 10*3/uL Normal 150-400 [facility] Comment on above: Performed By: #### C BCDIF, CMP, TSH ####[facility] [place], [place] [phone] RBC (Bld) [#/Vol] 4.27 10*6/uL Normal 4.20-6.00 [facility] Comment on above: Performed By: #### C BCDIF, CMP, TSH ####[facility] [address] [place], [place] [phone] WBC (Bld) [#/Vol] 7.88 10*3/uL Normal 3.70-11.00 [facility] Comment on above: Performed By: #### C BCDIF, CMP, TSH ####[facility] [place], [place] [phone] CNOVon 10-02-2020 [facility] Office Visit ([facility] ) KULWANT ANDRADE ([id number]) 1940 M Date Time Provider Department 10/02/20 8:45 AM MAGALYS GUTIERRES [facility] During your visit today, we recorded the following information about you: Temperature Pulse Respiration Blood pressure 98.5 degrees 116/minute 18/minute 124/84 Weight 78.9 kg Magalys Gutierres APRN.CNP 10/02/2020 2:57 PM Signed This note was created using NoteWriter. Subjective Kulwant Andrade is a 80 year old male. With PMH hypothyroid, acid reflux, HTN presents for complaints of body aches. Acute onset August 06 and he states that he believes this is related to the vaccine. 1st vaccine Moderna on July 30. August 06 woke up with joint paint and body aches my feet feel glued to floor: Endorses every bit of me hurts He was seen by Dr. Hernandez on August 07 for same complaints and states he was placed on 2 rounds of steroids. No relief. Advised to not obtain second vaccine. States he had an appointment on August [address] Hernandez, but was cancelled by office. Endorses that they told me a touch of lupus possibly Endorses sx have been worsening over past few weeks. States that he has been using Ibuprofen but without relief of symptoms. He states he is unable to get in with his PCP, Dr. Hernandez. I don't know what is going on in that office The history is provided by the patient. No computer information science professor was used. Musculoskeletal Problem This is a new problem. The current episode started more than 1 month ago. The problem occurs constantly. The problem has been unchanged. Associated symptoms include myalgias. Pertinent negatives include no abdominal pain, anorexia, chest pain, chills, congestion, coughing, diaphoresis, fatigue, fever, headaches, nausea, numbness, rash or vomiting. Nothing aggravates the symptoms. He has tried NSAIDs for the symptoms. The treatment provided no relief. PAST MEDICAL HISTORY Diagnosis Date - Chronic cholecystitis - Essential hypertension, benign - Myalgia and myositis, unspecified - Other and unspecified hyperlipidemia PAST SURGICAL HISTORY Procedure Laterality Date - EXPLORATORY OF ABDOMEN Laparotomy, exp - LAPAROSCOPIC CHOLECYSTECTOMY 05/03/07 - PAST SURGICAL HISTORY OF back surgery - PAST SURGICAL HISTORY OF excision of kidney tumor ALLERGIES Erythromycin MEDICATIONS spironolactone (ALDACTONE) 25 mg tablet Take 25 mg by mouth once daily. lisinopril (ZESTRIL, PRINIVIL) 20 mg tablet Take 20 mg by mouth once daily. levothyroxine (SYNTHROID) 75 mcg tablet Take 75 mcg by mouth daily before breakfast. KLOR-CON 10 10 MEQ TAB amLODIPine (NORVASC) 10 mg tablet Take 10 mg by mouth once daily. omeprazole (PRILOSEC) 20 mg capsule TAKE 1 CAPSULE BY MOUTH EVERY DAY 30 MINUTES BEFORE A MEAL METOPROLOL SUCCINATE ORAL Take by mouth. DICLOFENAC SODIUM ORAL Take by mouth. ASPIRIN 81 MG CHEWABLE TAB Take one(1) tablet daily. NIFEdipine XL 60 mg ORAL TbSR Take one(1) tablet daily. ezetimibe-simvastatin (VYTORIN 10) 10-20 mg ORAL Tab Take one(1) tablet daily. HYDROCHLOROTHIAZIDE 25 MG TAB Take one(1) tablet daily. PRINIVIL 20 MG TAB Take one(1) tablet daily. FAMILY HISTORY Problem Relation Age of Onset - Breast Cancer Sister x3 - Cancer Sister x2 lung - Cancer Brother appendix Social History Tobacco Use - Smoking status: Never Smoker - Smokeless tobacco: Never Used Substance Use Topics - Alcohol use: No - Drug use: Not on file Review of Systems Constitutional: Negative for appetite change, chills, diaphoresis, fatigue and fever. HENT: Negative for congestion, dental problem, drooling, ear discharge, ear pain, facial swelling, hearing loss, mouth sores, nosebleeds, postnasal drip, rhinorrhea, sinus pressure and sinus pain. Eyes: Negative for photophobia, pain, redness and visual disturbance. Respiratory: Negative for apnea, cough, choking, chest tightness and shortness of breath. Cardiovascular: Negative for chest pain, palpitations and leg swelling. Gastrointestinal: Negative for abdominal pain, anorexia, diarrhea, nausea and vomiting. Musculoskeletal: Positive for myalgias. Skin: Negative for color change, pallor, rash and wound. Allergic/Immunologic: Negative for environmental allergies, food allergies and immunocompromised state. Neurological: Negative for dizziness, facial asymmetry, light-headedness, numbness and headaches. Hematological: Negative for adenopathy. Does not bruise/bleed easily. Psychiatric/Behavioral: Negative for agitation, behavioral problems, confusion and decreased concentration. Objective BP 124/84 Pulse 116 Temp 36.9 ?C (98.5 ?F) (Tympanic) Resp 18 Wt 78.9 kg (174 lb) SpO2 96% Physical Exam Vitals and nursing note reviewed. Constitutional: General: He is not in acute distress. Appearance: Normal appearance. He is normal weight. He (more content not included)... [facility] Telephone ([facility]) KULWANT ANDRADE ([id number]) 1940 M Date Time Provider Department 10/02/20 LORRIE PÉREZ [facility] During your visit today, we recorded the following information about you: Lorrie Pérez MD 10/02/2020 9:32 PM Signed Patient notified: Labs show decreased kidney function. He should not be using NSAIDs for pain relief as these can damage his kidneys further. He had used ibuprofen over the last month, but none this week as it does not do much. He reports his kidney function was normal in July through his PCP. Follow up with primary care as scheduled on Thursday for other abnormalities on his labs. Repeat labs ordered to be done on Thursday. Put on lab schedule and notify patient of time. Allergies As of Date: 10/02/2020 Noted Allergy Reaction ERYTHROMYCIN 04/15/2005 4 - Hives Date Reviewed: 10/02/2020 Reviewed by: Pooja Trujillo Ma - Fully Assessed Reason for Visit: Results [95] Cmt: Cr 2.0 Primary Visit Diagnosis:BART (acute kidney injury) (HCC) [N17.9] Other Visit Diagnoses:Hypercalcemia [E83.52] Hyperkalemia [E87.5] Myalgia [M79.10] Order(s):CALCIUM IONIZED B [SQICA] Order #: [id number] FUTURE RENAL FUNCTION PANEL [SQRFP] Order #: [id number] FUTURE PTH INTACT BLD [SQPTHI] Order #: [id number] FUTURE VITAMIN D 25 HYDROXY [SQVITD] Order #: [id number] FUTURE Prescriptions as of 10/02/2020 Sig: SPIRONOLACTONE 25 MG TABLET Take 25 mg by mouth once gaetano* AMLODIPINE 10 MG TABLET Take 10 mg by mouth once gaetano* OMEPRAZOLE 20 MG CAPSULE,GIANNI* TAKE 1 CAPSULE BY MOUTH EVERY* LISINOPRIL 20 MG TABLET Take 20 mg by mouth once gaetano* LEVOTHYROXINE 75 MCG TABLET Take 75 mcg by mouth daily be* X METOPROLOL SUCCINATE ORAL Take by mouth. Patient not taking: Reported on 10/02/2020 X DICLOFENAC SODIUM ORAL Take by mouth. Patient not taking: Reported on 10/02/2020 X ASPIRIN 81 MG CHEWABLE TABLET Take one(1) tablet daily. Patient not taking: X * NIFEDIPINE ER 60 MG TABLET,EX* Take one(1) tablet daily. X * VYTORIN 10 MG-20 MG TABLET Take one(1) tablet daily. Patient not taking: X * HYDROCHLOROTHIAZIDE 25 MG TAB* Take one(1) tablet daily. Patient not taking: X * KLOR-CON 10 MEQ TABLET,EXTEND* X * PRINIVIL 20 MG TABLET Take one(1) tablet daily. 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] 04/15/2005 Encounter Status:Closed by LORRIE PÉREZ on 10/11/20 Normal [facility] Comp Metabolic Panelon 10-02 Albumin [Mass/Vol] 4.0 g/dL Normal 3.9-4.9 [facility] Comment on above: Performed By: #### C BCDIF, CMP, TSH ####[facility] [place], [place] [phone] ALP [Catalytic activity/Vol] 66 U/L Normal 38-113 [facility] Comment on above: Performed By: #### C BCDIF, CMP, TSH ####[facility] [place], [place] [phone] ALT [Catalytic activity/Vol] 15 U/L Normal 10-54 [facility] Comment on above: Performed By: #### C BCDIF, CMP, TSH ####[facility] [address] [place], [place] [phone] Anion gap [Moles/Vol] 12 mmol/L Normal 9-[address] [facility] Comment on above: Performed By: #### C BCDIF, CMP, TSH ####[facility] [place], [place] [phone] AST [Catalytic activity/Vol] 15 U/L Normal 14-40 [facility] Comment on above: Performed By: #### C BCDIF, CMP, TSH ####[facility] [place] [phone] Bilirubin [Mass/Vol] 0.5 mg/dL Normal 0.2-1.3 [facility] Comment on above: Performed By: #### C BCDIF CMP, TSH ####[facility] [place] [phone] Calcium [Mass/Vol] 10.4 mg/dL High 8.5-10.2 [facility] Comment on above: Performed By: #### C BCDIF CMP, TSH ####[place] [address] [address] [place] [phone] Chloride [Moles/Vol] 104 mmol/L Normal 97-105 [facility] Comment on above: Performed By: #### C BCSAHARAFLEFTY, TSH ####[facility] [place] [phone] CO2 [Moles/Vol] 25 mmol/L Normal 22-30 [facility] Comment on above: Performed By: #### C BCLEFTY GANDARA, TSH ####[facility] [place] [phone] Creatinine [Mass/Vol] 2.03 mg/dL High 0.73-1.[address] [facility] Comment on above: Performed By: #### C BCSAHARAF CMP, TSH ####[facility] [phone] eGFR- Amer. 39 Normal [facility] Comment on above: Performed By: #### C BCDIF CMP, TSH ####[facility] [place] [phone] eGFR-All Other Races 32 . Normal [facility] Comment on above: Result Comment: eGFR (Estimated GFR) Units of measure: mL/min/1.73 meters squared eGFR is derived from the reexpressed MDRD Study equation using the following parameters: serum creatinine, age, gender and race. The creatinine assay has been calibrated to be traceable to IDNY. An eGFR <60 mL/min/1.73m2 for >3 months is consistent with chronic kidney disease. Refer to KDOQI guidelines for clinical interpretation. In patients with unstable renal function, e.g. those with acute kidney injury, the eGFR may not accurately reflect actual GFR. Performed By: #### C LEFTY INGRAM, TSH ####[facility] [place], [place] [phone] Glucose [Mass/Vol] 98 mg/dL Normal 74-99 [facility] Comment on above: Result Comment: The [place] [employer] (ADA) provides guidance for cutoff values for fasting glucose and random glucose. The ADA defines fasting as no caloric intake for at least 8 hours. Fasting plasma glucose results between 100 to 125 mg/dL indicate increased risk for diabetes (prediabetes). Fasting plasma glucose results greater than or equal to 126 mg/dL meet the criteria for diagnosis of diabetes. In the absence of unequivocal hyperglycemia, results should be confirmed by repeat testing. In a patient with classic symptoms of hyperglycemia or hyperglycemic crisis, random plasma glucose results greater than or equal to 200 mg/dL meet the criteria for diagnosis of diabetes. Reference: Standards of Medical Care in Diabetes 2016, [place] [employer]. Diabetes Care. 2016.39(Suppl 1). Performed By: #### C LEFTY INGRAM, TSH ####[facility] [place], [place] [phone] Potassium [Moles/Vol] 5.2 mmol/L High 3.7-5.[address] [facility] Comment on above: Performed By: #### C LEFTY INGRAM, TSH ####[facility] [place], [place] [phone] Protein [Mass/Vol] 6.8 g/dL Normal 6.3-8.0 [facility] Comment on above: Performed By: #### C BCLEFTY GANDARA, TSH ####[facility], [place] [phone] Sodium [Moles/Vol] 141 mmol/L Normal 136-144 [facility] Comment on above: Performed By: #### C BCSAHARAFLEFTY, TSH ####[facility] [place], [place] [phone] Urea nitrogen [Mass/Vol] 43 mg/dL High 9-24 [facility] Comment on above: Performed By: #### C JACQUELINEF CMP, TSH ####[facility] [place], [place] [phone] TSHon 10-02-2020 TSH Qn 3.090 m[IU]/L Normal 0.270-4.20 0 [facility] Comment on above: Performed By: #### C JACQUELINEFLEFTY, TSH ####[facility] [place], [place] [phone] IR INJ FACET JOINT LUMBAR W/ GUIDEon 01-04-2020 IR INJ FACET JOINT LUMBAR W/GUIDE ORIGINAL IR INJ FACET JOINT LUMBAR W/GUIDE 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 Please see intraoperative notes for additional details. Interpreted By: Amanda Maharaj MD Preliminary Report By: Amanda Maharaj MD Electronically Signed By: Amanda Maharaj MD Dictated Date: 01/04/2020 4:33:24 PM Prelim Date: 01/04/2020 4:33:24 PM Sign Date: 01/04/2020 4:33:52 PM Ordering Provider:Javi Coronel [facility] ([place]) Office Visit: teodora/crispin 04-27-2017 Documentation of current medications (procedure) Done Invalid Interpretation Code [facility] Work Phone: Fall risk assessment No Invalid Interpretation Code [facility] Work Phone: Tobacco smoking status NHIS Never Invalid Interpretation Code [facility] Work Phone: Tobacco use CPHS Never smoker Invalid Interpretation Code [facility] Work Phone: Lab Report: Basic Metabolic Profile (BMP)on 11-20-2016 Anion gap 4 mmol/L Low 5-15 [facility] [employer] Work Phone: BUN/Creatinine Ratio 23.0 RATIO High 10-20 [facility] [employer] Work Phone: Calcium 8.3 mg/dL Low 8.5-10.1 [facility] [employer] Work Phone: Chloride 111 mmol/L High 98-107 [facility] [employer] Work Phone: CO2 29.0 mmol/L Invalid Interpretation Code 21.0-32.0 [facility] [employer] Work Phone: Creatinine 1.00 mg/dL Invalid Interpretation Code 0.70-1.30 [facility] [employer] Work Phone: eGFR (non-black) 94 mL/min/{1.73_m2} Invalid Interpretation Code >60 [facility] [employer] Work Phone: eGFR (non-black) 78 mL/min/{1.73_m2} Invalid Interpretation Code >60 [facility] Work Phone: Glucose mass conc 84 mg/dL Invalid Interpretation Code 70-110 [facility] [employer] Work Phone: Potassium molar conc 4.0 mmol/L Invalid Interpretation Code 3.5-5.1 [facility] [employer] Work Phone: Sodium 144 mmol/L Invalid Interpretation Code 136-145 [facility] [employer] Work Phone: Urea nitrogen 23 mg/dL High 7-18 [facility] [employer] Work Phone: Clinical Lists Update: Prelo acquisition professional 11-03-2016 Left ventricular Ejection fraction 55 % Invalid Interpretation Code [facility] [employer] Work Phone: Replaced Document: Caleb Rojas CG Observationson 06-13-2016 EKG QRS axis -20 deg Invalid Interpretation Code [facility] [employer] Work Phone: Interpretation Sinus Rhythm - frequ ent ectopic ventricular beat s # VECs = 2BORDERLINE RHYTHM Invalid Interpretation Code [facility] Work Phone: P [place] -1 deg Invalid Interpretation Code [facility] [employer] Work Phone: HI Interval 190 ms Invalid Interpretation Code [facility] Work Phone: Pulse (Heart Rate) 61 /min Invalid Interpretation Code [facility] Work Phone: QRS Duration 94 ms Invalid Interpretation Code [facility] Work Phone: QT Interval new path ms Invalid Interpretation Code [facility] Work Phone: QTc Hayes 425 ms Invalid Interpretation Code [facility] Work Phone: T [place] 27 deg Invalid Interpretation Code [facility] Work Phone: Clinical Lists Updateon Alanine aminotransferase (ALT) 18 U/L Invalid Interpretation Code [facility] Work Phone: Alkaline phosphatase (ALP) 56 U/L Invalid Interpretation Code [facility] Work Phone: Aspartate aminotransferase (AST) 14 U/L Invalid Interpretation Code [facility] Work Phone: Bilirubin (total) 1.60 mg/dL High [facility] Work Phone: Hematocrit (HCT) 45.1 % Invalid Interpretation Code [facility] Work Phone: Hemoglobin mass conc (Bld) 15.6 g/dL Invalid Interpretation Code [facility] Work Phone: Platelets 232 10*3/mm3 Invalid Interpretation Code [facility] Work Phone: WBC (Leukocytes) 6.4 10*3/uL Invalid Interpretation Code [facility] Work Phone: Lab Report: Magnesiumon 05-01 Magnesium 2.5 mg/dL High 1.8-2.4 [facility] Work Phone: Lab Report: Thyroid Stim Hor tiffany (TSH)on 05-13-2016 Thyroid stimulating hormone (TSH) 9.09 u[iU]/mL High 0.358-3.74 [facility] Work Phone: HEPATIC FUNCTION PANEL ([phone])Ordered By: Trim Carpenter on 11-22-2015 Albumin [Mass/Vol] 4.2 g/dL Normal 3.5-4.8 [facility]; [facility] Work Phone: ALP [Catalytic activity/Vol] 57 U/L Normal 39-117 [facility]; [facility] Work Phone: ALT [Catalytic activity/Vol] 11 U/L Normal 0-44 [facility]; [facility] Work Phone: AST [Catalytic activity/Vol] 15 U/L Normal 0-40 [facility]; [facility] Work Phone: Bilirubin [Mass/Vol] 1.6 mg/dL Abnormal 0.0-1.2 [facility]; [facility] Work Phone: Bilirubin.direct [Mass/Vol] 0.30 mg/dL Normal 0.00-0.40 [facility]; [facility] Work Phone: Protein [Mass/Vol] 6.5 g/dL Normal 6.0-8.5 [facility]; [facility] Work Phone: LIPID PANEL ([phone])Ordered B y: Trim Carpenter on 11-22-2015 Cholesterol [Mass/Vol] 188 mg/dL Normal 100-199 [facility]; [facility] Work Phone: Cholesterol in HDL [Mass/Vol] 36 mg/dL Abnormal [facility]; [facility] Work Phone: Cholesterol in LDL [Mass/Vol] 130 mg/dL Abnormal 0-99 [facility]; [facility] Work Phone: Cholesterol in LDL/Cholesterol in HDL [Mass ratio] 3.6 {ratio_units} Normal 0.0-3.6 [facility]; [facility] Work Phone: Cholesterol in VLDL [Mass/Vol] 22 mg/dL Normal 5-40 [facility]; [facility] Work Phone: Triglyceride [Mass/Vol] 112 mg/dL Normal 0-149 [facility]; [facility] Work Phone: Metabolic Panel, Basic ([phone])Ordered By: Trim Carpenter on 11-22-2015 Calcium [Mass/Vol] 9.0 mg/dL Normal 8.6-10.2 [facility]; [facility] Work Phone: Chloride [Moles/Vol] 103 mmol/L Normal 97-108 [facility]; [facility] Work Phone: CO2 [Moles/Vol] 26 mmol/L Normal 18-29 [facility]; [facility] Work Phone: Creatinine [Mass/Vol] 1.16 mg/dL Normal 0.76-1.27 [facility]; [facility] Work Phone: GFR/1.73 sq M.predicted among blacks CKD-EPI (S/P/Bld) [Vol rate/Area] 72 mL/min/1.73 Normal [facility]; [facility] Work Phone: GFR/1.73 sq M.predicted among non-blacks CKD-EPI (S/P/Bld) [Vol rate/Area] 62 mL/min/1.73 Normal [facility]; [facility] Work Phone: Glucose [Mass/Vol] 91 mg/dL Normal 65-99 [facility]; [facility] Work Phone: Potassium [Moles/Vol] 3.6 mmol/L Normal 3.5-5.2 [facility]; [facility] Work Phone: Sodium [Moles/Vol] 145 mmol/L Abnormal 134-144 [facility]; [facility] Work Phone: Urea nitrogen [Mass/Vol] 25 mg/dL Normal 8-27 [facility]; [facility] Work Phone: Urea nitrogen/Creatinine [Mass ratio] 22 mg/mg Normal 10-22 [facility]; [facility] Work Phone: KHANH (ANTINUCLEAR ANTIBODY) ( [phone])Ordered By: Trim Carpenter on 08-08-2015 Nuclear Ab Ql (S) Negative Normal [facility]; [facility] Work Phone: C-REACTIVE PROTEIN ([phone])Or dered By: Trim Carpenter on 08-08-2015 CRP [Mass/Vol] 3.1 mg/L Normal 0.0-4.9 [facility]; [facility] Work Phone: CBC W/AUTO DIFF WBC ([phone])O rdered By: Trim Carpenter on 08-08-2015 Basophils (Bld) [#/Vol] 0.0 10*3/uL Normal 0.0-0.2 [facility]; [facility] Work Phone: Basophils/100 WBC (Bld) 1 % Normal [facility]; [facility] Work Phone: Eosinophils (Bld) [#/Vol] 0.2 10*3/uL Normal 0.0-0.4 [facility]; [facility] Work Phone: Eosinophils/100 WBC (Bld) 2 % Normal [facility]; [facility] Work Phone: Erythrocyte distribution width (RBC) [Ratio] 13.6 % Normal 12.3-15.4 [facility]; [facility] Work Phone: Hematocrit (Bld) [Volume fraction] 44.3 % Normal 37.5-51.0 [facility]; [facility] Work Phone: Hemoglobin (Bld) [Mass/Vol] 15.3 g/dL Normal 12.6-17.7 [facility]; [facility] Work Phone: Immature granulocytes (Bld) [#/Vol] 0.0 10*3/uL Normal 0.0-0.1 [facility]; [facility] Work Phone: Immature granulocytes/100 WBC (Bld) 0 % Normal [facility]; [facility] Work Phone: Lymphocytes (Bld) [#/Vol] 1.3 10*3/uL Normal 0.7-3.1 [facility]; [facility] Work Phone: Lymphocytes/100 WBC (Bld) 16 % Normal [facility]; [facility] Work Phone: MCH (RBC) [Entitic mass] 30.5 pg Normal 26.6-33.0 [facility]; [facility] Work Phone: MCHC (RBC) [Mass/Vol] 34.5 g/dL Normal 31.5-35.7 [facility]; [facility] Work Phone: MCV (RBC) [Entitic vol] 88 fL Normal 79-97 [facility]; [facility] Work Phone: Monocytes (Bld) [#/Vol] 0.7 10*3/uL Normal 0.1-0.9 [facility]; [facility] Work Phone: Monocytes/100 WBC (Bld) 9 % Normal [facility]; [facility] Work Phone: Neutrophils (Bld) [#/Vol] 5.6 10*3/uL Normal 1.4-7.0 [facility]; [facility] Work Phone: Neutrophils/100 WBC (Bld) 72 % Normal [facility]; [facility] Work Phone: Platelets (Bld) [#/Vol] 279 10*3/uL Normal 150-379 [facility]; [facility] Work Phone: RBC (Bld) [#/Vol] 5.01 10*6/uL Normal 4.14-5.80 [facility] Work Phone: WBC (Bld) [#/Vol] 7.9 10*3/uL Normal 3.4-10.8 [facility]; [facility] Work Phone: CCP ANTIBODY ([phone])Ordered By: Trim Carpenter on 08-08-2015 Cyclic citrullinated peptide IgA+IgG IA Qn 15 {units} Normal 0-19 [facility]; [facility] Work Phone: METABOLIC PANEL, COMPREHENSI VE ([phone])Ordered By: Trim Carpenter on 08-08-2015 Albumin [Mass/Vol] 4.3 g/dL Normal 3.5-4.8 [facility]; [facility] Work Phone: Albumin/Globulin [Mass ratio] 1.6 {ratio} Normal 1.1-2.5 [facility]; [facility] Work Phone: ALP [Catalytic activity/Vol] 78 U/L Normal 39-117 [facility]; [facility] Work Phone: ALT [Catalytic activity/Vol] 11 U/L Normal 0-44 [facility]; [facility] Work Phone: AST [Catalytic activity/Vol] 16 U/L Normal 0-40 [facility]; [facility] Work Phone: Bilirubin [Mass/Vol] 1.0 mg/dL Normal 0.0-1.2 [facility] Work Phone: Calcium [Mass/Vol] 9.6 mg/dL Normal 8.6-10.2 [facility]; [facility] Work Phone: Chloride [Moles/Vol] 103 mmol/L Normal 97-108 [facility]; [facility] Work Phone: CO2 [Moles/Vol] 23 mmol/L Normal 18-29 [facility]; [facility] Work Phone: Creatinine [Mass/Vol] 1.08 mg/dL Normal 0.76-1.27 [facility]; [facility] Work Phone: GFR/1.73 sq M.predicted among blacks CKD-EPI (S/P/Bld) [Vol rate/Area] 79 mL/min/1.73 Normal [facility]; [facility] Work Phone: GFR/1.73 sq M.predicted among non-blacks CKD-EPI (S/P/Bld) [Vol rate/Area] 68 mL/min/1.73 Normal [facility]; [facility] Work Phone: Globulin (S) [Mass/Vol] 2.7 g/dL Normal 1.5-4.5 [facility]; [facility] Work Phone: Glucose [Mass/Vol] 129 mg/dL Abnormal 65-99 [facility]; [facility] Work Phone: Potassium [Moles/Vol] 3.6 mmol/L Normal 3.5-5.2 [facility] pre[facility]ive Internal [facility]; [facility] Work Phone: Protein [Mass/Vol] 7.0 g/dL Normal 6.0-8.5 [facility]; [facility] Work Phone: Sodium [Moles/Vol] 144 mmol/L Normal 134-144 [facility]; [facility] Work Phone: Urea nitrogen [Mass/Vol] 18 mg/dL Normal 8-27 [facility]; [facility] Work Phone: Urea nitrogen/Creatinine [Mass ratio] 17 mg/mg Normal 10-22 [facility]; [facility] Work Phone: RHEUMATOID FACTOR-QUANT ([phone])Ordered By: Trim Carpenter on 08-08-2015 Rheumatoid factor Qn 3.2 [IU]/mL Normal 0.0-13.9 [facility] pre[facility]ive [facility]; [facility] Work Phone: SED RATE ERYTHROCYTE ([id number]) Ordered By: Trim Carpenter on 08-08-2015 ESR (Bld) [Velocity] 5 mm/h Normal 0-30 [facility]; [facility] Work Phone: URIC ACID BLOOD ([phone])Order ed By: Trim Carpenter on 08-08-2015 Urate [Mass/Vol] 7.4 mg/dL Normal 3.7-8.6 [facility]; [facility] Work Phone: CBC W/AUTO DIFF WBC ([id number])O rdered By: Trim Carpenter on 05-21-2015 Basophils (Bld) [#/Vol] 0.0 10*3/uL Normal 0.0-0.2 [facility]; [facility] Work Phone: Basophils/100 WBC (Bld) 1 % Normal [facility]; [facility] Work Phone: Eosinophils (Bld) [#/Vol] 0.1 10*3/uL Normal 0.0-0.4 [facility]; [facility] Work Phone: Eosinophils/100 WBC (Bld) 2 % Normal [facility]; [facility] Work Phone: Erythrocyte distribution width (RBC) [Ratio] 13.2 % Normal 12.3-15.4 [facility]; [facility] Work Phone: Hematocrit (Bld) [Volume fraction] 42.7 % Normal 37.5-51.0 [facility]; [facility] Work Phone: Hemoglobin (Bld) [Mass/Vol] 15.2 g/dL Normal 12.6-17.7 [facility]; [facility] Work Phone: Immature granulocytes (Bld) [#/Vol] 0.0 10*3/uL Normal 0.0-0.1 [facility]; [facility] Work Phone: Immature granulocytes/100 WBC (Bld) 0 % Normal [facility]; [facility] Work Phone: Lymphocytes (Bld) [#/Vol] 1.8 10*3/uL Normal 0.7-3.1 [facility]; [facility] Work Phone: Lymphocytes/100 WBC (Bld) 31 % Normal [facility]; [facility] Work Phone: MCH (RBC) [Entitic mass] 31.2 pg Normal 26.6-33.0 [facility]; [facility] Work Phone: MCHC (RBC) [Mass/Vol] 35.6 g/dL Normal 31.5-35.7 [facility]; [facility] Work Phone: MCV (RBC) [Entitic vol] 88 fL Normal 79-97 [facility]; [facility] Work Phone: Monocytes (Bld) [#/Vol] 0.5 10*3/uL Normal 0.1-0.9 [facility]; [facility] Work Phone: Monocytes/100 WBC (Bld) 9 % Normal [facility]; [facility] Work Phone: Neutrophils (Bld) [#/Vol] 3.4 10*3/uL Normal 1.4-7.0 [facility]; [facility] Work Phone: Neutrophils/100 WBC (Bld) 57 % Normal [facility]; [facility] Work Phone: Platelets (Bld) [#/Vol] 251 10*3/uL Normal 150-379 [facility]; [facility] Work Phone: RBC (Bld) [#/Vol] 4.87 10*6/uL Normal 4.14-5.80 Compr e[facility]; [facility] Work Phone: WBC (Bld) [#/Vol] 5.9 10*3/uL Normal 3.4-10.8 Compre hens[facility]; [facility] Work Phone: LIPID PANEL ([id number])Ordered B y: Trim Carpenter on 05-21-2015 Cholesterol [Mass/Vol] 246 mg/dL Abnormal 100-199 [facility]; [facility] Work Phone: Cholesterol in HDL [Mass/Vol] 31 mg/dL Abnormal [facility]; [facility] Work Phone: Cholesterol in LDL [Mass/Vol] 156 mg/dL Abnormal 0-99 [facility]; [facility] Work Phone: Cholesterol in LDL/Cholesterol in HDL [Mass ratio] 5.0 {ratio_units} Abnormal 0.0-3.6 [facility]; [facility] Work Phone: Cholesterol in VLDL [Mass/Vol] 59 mg/dL Abnormal 5-40 [facility]; [facility] Work Phone: Triglyceride [Mass/Vol] 295 mg/dL Abnormal 0-149 [facility]; [facility] Work Phone: METABOLIC PANEL, COMPREHENSI VE ([id number])Ordered By: Trim Carpenter on 05-21-2015 Albumin [Mass/Vol] 3.9 g/dL Normal 3.5-4.8 [facility]; [facility] Work Phone: Albumin/Globulin [Mass ratio] 1.5 {ratio} Normal 1.1-2.5 [facility]; [facility] Work Phone: ALP [Catalytic activity/Vol] 66 U/L Normal 39-117 [facility]; [facility] Work Phone: ALT [Catalytic activity/Vol] 12 U/L Normal 0-44 [facility]; [facility] Work Phone: AST [Catalytic activity/Vol] 11 U/L Normal 0-40 [facility]; [facility] Work Phone: Bilirubin [Mass/Vol] 1.1 mg/dL Normal 0.0-1.2 [facility]; [facility] Work Phone: Calcium [Mass/Vol] 8.9 mg/dL Normal 8.6-10.2 [facility]; [facility] Work Phone: Chloride [Moles/Vol] 106 mmol/L Normal 97-108 [facility]; [facility] Work Phone: CO2 [Moles/Vol] 23 mmol/L Normal 18-29 [facility]; [facility] Work Phone: Creatinine [Mass/Vol] 1.08 mg/dL Normal 0.76-1.27 [facility]; [facility] Work Phone: GFR/1.73 sq M.predicted among blacks CKD-EPI (S/P/Bld) [Vol rate/Area] 79 mL/min/1.73 Normal [facility]; [facility] Work Phone: GFR/1.73 sq M.predicted among non-blacks CKD-EPI (S/P/Bld) [Vol rate/Area] 68 mL/min/1.73 Normal [facility]; [facility] Work Phone: Globulin (S) [Mass/Vol] 2.6 g/dL Normal 1.5-4.5 [facility]; [facility] Work Phone: Glucose [Mass/Vol] 87 mg/dL Normal 65-99 [facility]; [facility] Work Phone: Potassium [Moles/Vol] 4.0 mmol/L Normal 3.5-5.2 [facility] prehensive [facility]; [facility] Work Phone: Protein [Mass/Vol] 6.5 g/dL Normal 6.0-8.5 [facility]; [facility] Work Phone: Sodium [Moles/Vol] 146 mmol/L Abnormal 134-144 [facility]; [facility] Work Phone: Urea nitrogen [Mass/Vol] 16 mg/dL Normal 8-27 [facility]; [facility] Work Phone: Urea nitrogen/Creatinine [Mass ratio] 15 mg/mg Normal 10-22 [facility]; [facility] Work Phone: PSA (PROSTATE SPECIFIC ANTIG EN) (V76.44)Ordered By: Trim Carpenter on 05-21-2015 Prostate specific Ag [Mass/Vol] 0.8 ng/mL Normal 0.0-4.0 [facility]; [facility] Work Phone: TSH ([id number])Ordered By: Holli m Hogshead Stock Clerk on 05-21-2015 TSH Qn 1.370 {uIU/mL} Normal 0.450-4.50 0 [facility]; [facility] Work Phone: Vitamin D Hydroxy ([id number])Ord ered By: Trim Carpenter on 05-21-2015 25-hydroxyvitamin D [Mass/Vol] 26.7 ng/mL Abnormal 30.0-100.0 [facility]; [facility] Work Phone: CALCIFEDIOL ([id number])Ordered B y: Trim Carpenter on 01-18-2015 25-hydroxyvitamin D [Mass/Vol] 44.9 ng/mL Normal 30.0-100.0 [facility]; [facility] Work Phone: CBC WITH MANUAL DIFF ([id number]) Ordered By: Trim Carpenter on 01-18-2015 Basophils (Bld) [#/Vol] 0.0 10*3/uL Normal 0.0-0.2 [facility]; [facility] Work Phone: Basophils/100 WBC (Bld) 0 % Normal [facility]; [facility] Work Phone: Eosinophils (Bld) [#/Vol] 0.1 10*3/uL Normal 0.0-0.4 [facility]; [facility] Work Phone: Eosinophils/100 WBC (Bld) 1 % Normal [facility]; [facility] Work Phone: Erythrocyte distribution width (RBC) [Ratio] 13.2 % Normal 12.3-15.4 [facility]; [facility] Work Phone: Hematocrit (Bld) [Volume fraction] 45.6 % Normal 37.5-51.0 [facility]; [facility] Work Phone: Hemoglobin (Bld) [Mass/Vol] 15.3 g/dL Normal 12.6-17.7 [facility]; [facility] Work Phone: Immature granulocytes (Bld) [#/Vol] 0.0 10*3/uL Normal 0.0-0.1 [facility]; [facility] Work Phone: Immature granulocytes/100 WBC (Bld) 0 % Normal [facility]; [facility] Work Phone: Lymphocytes (Bld) [#/Vol] 1.6 10*3/uL Normal 0.7-3.1 [facility]; [facility] Work Phone: Lymphocytes/100 WBC (Bld) 22 % Normal [facility]; [facility] Work Phone: MCH (RBC) [Entitic mass] 30.2 pg Normal 26.6-33.0 [facility]; [facility] Work Phone: MCHC (RBC) [Mass/Vol] 33.6 g/dL Normal 31.5-35.7 [facility] prehensive [facility]; [facility] Work Phone: MCV (RBC) [Entitic vol] 90 fL Normal 79-97 [facility]; [facility] Work Phone: Monocytes (Bld) [#/Vol] 0.6 10*3/uL Normal 0.1-0.9 [facility]; [facility] Work Phone: Monocytes/100 WBC (Bld) 8 % Normal [facility]; [facility] Work Phone: Neutrophils (Bld) [#/Vol] 4.9 10*3/uL Normal 1.4-7.0 [facility]; [facility] Work Phone: Neutrophils/100 WBC (Bld) 69 % Normal [facility]; [facility] Work Phone: Platelets (Bld) [#/Vol] 295 10*3/uL Normal 150-379 [facility]; [facility] Work Phone: RBC (Bld) [#/Vol] 5.07 10*6/uL Normal 4.14-5.80 [facility]pr [facility]; [facility] Work Phone: WBC (Bld) [#/Vol] 7.1 10*3/uL Normal 3.4-10.8 Compre hens[facility]; [facility] Work Phone: Lipid Panel ([id number])Ordered B y: Trim Carpenter on 01-18-2015 Cholesterol [Mass/Vol] 248 mg/dL Abnormal 100-199 [facility]; [facility] Work Phone: Cholesterol in HDL [Mass/Vol] 37 mg/dL Abnormal [facility]; [facility] Work Phone: Cholesterol in LDL [Mass/Vol] 173 mg/dL Abnormal 0-99 [facility]; [facility] Work Phone: Cholesterol in LDL/Cholesterol in HDL [Mass ratio] 4.7 {ratio_units} Abnormal 0.0-3.6 [facility]; [facility] Work Phone: Cholesterol in VLDL [Mass/Vol] 38 mg/dL Normal 5-40 [facility]; [facility] Work Phone: Triglyceride [Mass/Vol] 188 mg/dL Abnormal 0-149 [facility]; [facility] Work Phone: Metabolic Panel, Comprehensi ve ([id number])Ordered By: Trim Carpenter on 01-18-2015 Albumin [Mass/Vol] 4.4 g/dL Normal 3.5-4.8 [facility]; [facility] Work Phone: Albumin/Globulin [Mass ratio] 1.9 {ratio} Normal 1.1-2.5 [facility]; [facility] Work Phone: ALP [Catalytic activity/Vol] 65 U/L Normal 39-117 [facility]; [facility] Work Phone: ALT [Catalytic activity/Vol] 9 U/L Normal 0-44 [facility]; [facility] Work Phone: AST [Catalytic activity/Vol] 12 U/L Normal 0-40 [facility]; [facility] Work Phone: Bilirubin [Mass/Vol] 1.2 mg/dL Normal 0.0-1.2 [facility]; [facility] Work Phone: Calcium [Mass/Vol] 9.1 mg/dL Normal 8.6-10.2 [facility]; [facility] Work Phone: Chloride [Moles/Vol] 102 mmol/L Normal 97-108 [facility] rehensive Internal Medicine; [facility] Work Phone: CO2 [Moles/Vol] 24 mmol/L Normal 18-29 [facility]; [facility] Work Phone: Creatinine [Mass/Vol] 1.12 mg/dL Normal 0.76-1.27 [facility]; [facility] Work Phone: GFR/1.73 sq M.predicted among blacks CKD-EPI (S/P/Bld) [Vol rate/Area] 75 mL/min/1.73 Normal [facility]; [facility] Work Phone: GFR/1.73 sq M.predicted among non-blacks CKD-EPI (S/P/Bld) [Vol rate/Area] 65 mL/min/1.73 Normal [facility]; [facility] Work Phone: Globulin (S) [Mass/Vol] 2.3 g/dL Normal 1.5-4.5 [facility]; [facility] Work Phone: Glucose [Mass/Vol] 85 mg/dL Normal 65-99 [facility]; [facility] Work Phone: Potassium [Moles/Vol] 4.0 mmol/L Normal 3.5-5.2 Com pre[facility]; [facility] Work Phone: Protein [Mass/Vol] 6.7 g/dL Normal 6.0-8.5 [facility]; [facility] Work Phone: Sodium [Moles/Vol] 145 mmol/L Abnormal 134-144 [facility]; [facility] Work Phone: Urea nitrogen [Mass/Vol] 17 mg/dL Normal 8-27 [facility]; [facility] Work Phone: Urea nitrogen/Creatinine [Mass ratio] 15 mg/mg Normal 10-22 [facility]; [facility] Work Phone: TSH ([id number])Ordered By: Holli m Hogshead Stock Clerk on 01-18-2015 TSH Qn 10.550 {uIU/mL} Abnormal 0.450-4.50 0 [facility]; [facility] Work Phone: Rapid Strep Test, Office ([phone])on 10-31-2014 S. pyogenes Ag EIA Ql (Throat) Negative Normal [facility]; [facility] Work Phone: Rapid Strep Test, Office ([phone])Ordered By: Madison Cam on 10-05-2014 S. pyogenes Ag EIA Ql (Throat) Negative Normal [facility]; [facility] Work Phone: C-REACTIVE PROTEIN ([id number])Or dered By: Trim Carpenter on 09-27-2014 CRP [Mass/Vol] 4.1 mg/L Normal 0.0-4.9 [facility]; [facility] Work Phone: CBC with auto diff ([phone])Or dered By: Trim Carpenter on 09-27-2014 Basophils (Bld) [#/Vol] 0.0 10*3/uL Normal 0.0-0.2 [facility]; [facility] Work Phone: Basophils/100 WBC (Bld) 1 % Normal [facility]; [facility] Work Phone: Eosinophils (Bld) [#/Vol] 0.2 10*3/uL Normal 0.0-0.4 [facility]; [facility] Work Phone: Eosinophils/100 WBC (Bld) 2 % Normal [facility]; [facility] Work Phone: Erythrocyte distribution width (RBC) [Ratio] 13.6 % Normal 12.3-15.4 [facility]; [facility] Work Phone: Hematocrit (Bld) [Volume fraction] 40.4 % Normal 37.5-51.0 [facility]; [facility] Work Phone: Hemoglobin (Bld) [Mass/Vol] 13.9 g/dL Normal 12.6-17.7 [facility]; [facility] Work Phone: Immature granulocytes (Bld) [#/Vol] 0.0 10*3/uL Normal 0.0-0.1 [facility]; [facility] Work Phone: Immature granulocytes/100 WBC (Bld) 0 % Normal [facility]; [facility] Work Phone: Lymphocytes (Bld) [#/Vol] 1.8 10*3/uL Normal 0.7-3.1 [facility]; [facility] Work Phone: Lymphocytes/100 WBC (Bld) 22 % Normal [facility]; [facility] Work Phone: MCH (RBC) [Entitic mass] 29.7 pg Normal 26.6-33.0 [facility]; [facility] Work Phone: MCHC (RBC) [Mass/Vol] 34.4 g/dL Normal 31.5-35.7 [facility] Work Phone: MCV (RBC) [Entitic vol] 86 fL Normal 79-97 [facility] Work Phone: Monocytes (Bld) [#/Vol] 0.6 10*3/uL Normal 0.1-0.9 [facility]; [facility] Work Phone: Monocytes/100 WBC (Bld) 8 % Normal [facility]; [facility] Work Phone: Neutrophils (Bld) [#/Vol] 5.7 10*3/uL Normal 1.4-7.0 [facility]; [facility] Work Phone: Neutrophils/100 WBC (Bld) 67 % Normal [facility]; [facility] Work Phone: Platelets (Bld) [#/Vol] 286 10*3/uL Normal 150-379 [facility]; [facility] Work Phone: RBC (Bld) [#/Vol] 4.68 10*6/uL Normal 4.14-5.80 [facility] Work Phone: WBC (Bld) [#/Vol] 8.3 10*3/uL Normal 3.4-10.8 Compre hensive [facility]; [facility] Work Phone: CCP ANTIBODY ([id number])Ordered By: Trim Carpenter on 09-27-2014 Cyclic citrullinated peptide IgA+IgG IA Qn 3 {units} Normal 0-19 [facility]; [facility] Work Phone: LIPID PANEL ([id number])Ordered B y: Trim Carpenter on 09-27-2014 Cholesterol [Mass/Vol] 248 mg/dL Abnormal 100-199 [facility]; [facility] Work Phone: Cholesterol in HDL [Mass/Vol] 33 mg/dL Abnormal [facility]; [facility] Work Phone: Cholesterol in LDL [Mass/Vol] 163 mg/dL Abnormal 0-99 [facility]; [facility] Work Phone: Cholesterol in LDL/Cholesterol in HDL [Mass ratio] 4.9 {ratio_units} Abnormal 0.0-3.6 [facility]; [facility] Work Phone: Cholesterol in VLDL [Mass/Vol] 52 mg/dL Abnormal 5-40 [facility]; [facility] Work Phone: Triglyceride [Mass/Vol] 261 mg/dL Abnormal 0-149 [facility]; [facility] Work Phone: METABOLIC PANEL, COMPREHENSI VE ([phone])Ordered By: Trim Carpenter on 09-27-2014 Albumin [Mass/Vol] 4.2 g/dL Normal 3.5-4.8 [facility]; [facility] Work Phone: Albumin/Globulin [Mass ratio] 1.8 {ratio} Normal 1.1-2.5 [facility]; [facility] Work Phone: ALP [Catalytic activity/Vol] 73 U/L Normal 39-117 [facility]; [facility] Work Phone: ALT [Catalytic activity/Vol] 16 U/L Normal 0-44 [facility]; [facility] Work Phone: AST [Catalytic activity/Vol] 15 U/L Normal 0-40 [facility]; [facility] Work Phone: Bilirubin [Mass/Vol] 1.1 mg/dL Normal 0.0-1.2 Comp rehensive [facility]; [facility] Work Phone: Calcium [Mass/Vol] 9.5 mg/dL Normal 8.6-10.2 [facility]; [facility] Work Phone: Chloride [Moles/Vol] 101 mmol/L Normal 97-108 [facility]; [facility] Work Phone: CO2 [Moles/Vol] 23 mmol/L Normal 18-29 [facility]; [facility] Work Phone: Creatinine [Mass/Vol] 1.23 mg/dL Normal 0.76-1.27 [facility]; [facility] Work Phone: GFR/1.73 sq M.predicted among blacks CKD-EPI (S/P/Bld) [Vol rate/Area] 67 mL/min/1.73 Normal [facility]; [facility] Work Phone: GFR/1.73 sq M.predicted among non-blacks CKD-EPI (S/P/Bld) [Vol rate/Area] 58 mL/min/1.73 Abnormal [facility]; [facility] Work Phone: Globulin (S) [Mass/Vol] 2.4 g/dL Normal 1.5-4.5 [facility]; [facility] Work Phone: Glucose [Mass/Vol] 113 mg/dL Abnormal 65-99 [facility]; [facility] Work Phone: Potassium [Moles/Vol] 4.2 mmol/L Normal 3.5-5.2 [facility]; [facility] Work Phone: Protein [Mass/Vol] 6.6 g/dL Normal 6.0-8.5 [facility]; [facility] Work Phone: Sodium [Moles/Vol] 143 mmol/L Normal 134-144 [facility]; [facility] Work Phone: Urea nitrogen [Mass/Vol] 20 mg/dL Normal 8-27 [facility]; [facility] Work Phone: Urea nitrogen/Creatinine [Mass ratio] 16 mg/mg Normal 10-22 [facility]; [facility] Work Phone: SED RATE ERYTHROCYTE ([id number]) Ordered By: Trim Carpenter on 09-27-2014 ESR (Bld) [Velocity] 8 mm/h Normal 0-30 [facility]; [facility] Work Phone: TSH ([id number])Ordered By: Syste m Hogshead Stock Clerk on 09-27-2014 TSH Qn 2.360 {uIU/mL} Normal 0.450-4.50 0 [facility]; [facility] Work Phone: URINALYSIS, W/ MICRO ([id number]) Ordered By: Trim Carpenter on 09-27-2014 Appearance (U) Clear Normal [facility]; [facility] Work Phone: Bilirubin Ql (U) Negative Normal Comprehe nsive Internal Medicine; [facility] Work Phone: Color (U) Yellow Normal [facility]; [facility] Work Phone: Glucose Ql (U) Negative Normal [facility]; [facility] Work Phone: Hemoglobin Ql (U) Negative Normal Compreh ensive [facility]; [facility] Work Phone: Ketones Ql (U) Trace Abnormal [facility]; [facility] Work Phone: Leukocyte esterase Test strip Ql (U) Negative Normal [facility]; [facility] Work Phone: Microscopic observation LM Nom (Urine sed) MICRON Normal [facility]; [facility] Work Phone: Microscopic observation LM Nom (Urine sed) See below: Normal [facility]; [facility] Work Phone: Nitrite Ql (U) Negative Normal [facility]; [facility] Work Phone: pH (U) 6.0 [pH] Normal 5.0-7.5 [facility]; [facility] Work Phone: Protein Ql (U) Trace Normal [facility]; [facility] Work Phone: Specific gravity (U) [Rel density] 1.028 1 Normal 1.005-1.03 0 [facility]; [facility] Work Phone: Urobilinogen (U) [Mass/Vol] 0.2 mg/dL Normal 0.0-1.9 [facility]; [facility] Work Phone: URINE PAYTON CULTURE (MELVIN COL COUNT) ([id number])Ordered By: Trim Carpenter on 09-27-2014 Bacteria identified Cx Nom (U) Final report Abnormal [facility]; [facility] Work Phone: Bacteria identified Cx Nom (U) Escherichia coli Abnormal [facility]; [facility] Work Phone: Bacteria identified Cx Nom (U) BETAGB Abnormal [facility]; [facility] Work Phone: Office Visiton 09-20-2014 General cardiovascular disease 10Y risk [#] Edmond.D'Agostino 33 % Invalid Interpretation Code [facility] Work Phone: KHANH (ANTINUCLEAR ANTIBODY) ( [id number])Ordered By: Trim Carpenter on 06-27-2014 Nuclear Ab Ql (S) Negative Normal Compreh ensive [facility]; [facility] Work Phone: C-REACTIVE PROTEIN ([id number])Or dered By: Trim Carpenter on 06-27-2014 CRP [Mass/Vol] 4.3 mg/L Normal 0.0-4.9 [facility]; [facility] Work Phone: CBC, PLATELETS & AUT DIFF ([phone])Ordered By: Trim Carpenter on 06-27-2014 Basophils (Bld) [#/Vol] 0.0 10*3/uL Normal 0.0-0.2 [facility]; [facility] Work Phone: Basophils/100 WBC (Bld) 1 % Normal [facility]; [facility] Work Phone: Eosinophils (Bld) [#/Vol] 0.1 10*3/uL Normal 0.0-0.4 [facility]; [facility] Work Phone: Eosinophils/100 WBC (Bld) 2 % Normal [facility]; [facility] Work Phone: Erythrocyte distribution width (RBC) [Ratio] 13.3 % Normal 12.3-15.4 [facility]; [facility] Work Phone: Hematocrit (Bld) [Volume fraction] 44.0 % Normal 37.5-51.0 [facility]; [facility] Work Phone: Hemoglobin (Bld) [Mass/Vol] 15.2 g/dL Normal 12.6-17.7 [facility]; [facility] Work Phone: Immature granulocytes (Bld) [#/Vol] 0.0 10*3/uL Normal 0.0-0.1 [facility]; [facility] Work Phone: Immature granulocytes/100 WBC (Bld) 0 % Normal [facility]; [facility] Work Phone: Lymphocytes (Bld) [#/Vol] 1.6 10*3/uL Normal 0.7-3.1 [facility]; [facility] Work Phone: Lymphocytes/100 WBC (Bld) 29 % Normal [facility]; [facility] Work Phone: MCH (RBC) [Entitic mass] 30.2 pg Normal 26.6-33.0 [facility]; [facility] Work Phone: MCHC (RBC) [Mass/Vol] 34.5 g/dL Normal 31.5-35.7 [facility] prehensive [facility]; [facility] Work Phone: MCV (RBC) [Entitic vol] 87 fL Normal 79-97 [facility]; [facility] Work Phone: Monocytes (Bld) [#/Vol] 0.5 10*3/uL Normal 0.1-0.9 [facility]; [facility] Work Phone: Monocytes/100 WBC (Bld) 9 % Normal [facility]; [facility] Work Phone: Neutrophils (Bld) [#/Vol] 3.3 10*3/uL Normal 1.4-7.0 [facility]; [facility] Work Phone: Neutrophils/100 WBC (Bld) 59 % Normal [facility]; [facility] Work Phone: Platelets (Bld) [#/Vol] 283 10*3/uL Normal 150-379 [facility]; [facility] Work Phone: RBC (Bld) [#/Vol] 5.04 10*6/uL Normal 4.14-5.80 [facility]; [facility] Work Phone: WBC (Bld) [#/Vol] 5.6 10*3/uL Normal 3.4-10.8 [facility]; [facility] Work Phone: LDH (LD) (LACTATE DEHYDROGEN ASE) ([id number])Ordered By: Trim Carpenter on 06-27-2014 LDH [Catalytic activity/Vol] 199 U/L Normal 121-224 [facility]; [facility] Work Phone: METABOLIC PANEL, COMPREHENSI VE ([id number])Ordered By: Trim Carpenter on 06-27-2014 Albumin [Mass/Vol] 4.5 g/dL Normal 3.5-4.8 [facility]; [facility] Work Phone: Albumin/Globulin [Mass ratio] 1.8 {ratio} Normal 1.1-2.5 [facility]; [facility] Work Phone: ALP [Catalytic activity/Vol] 73 U/L Normal 39-117 [facility]; [facility] Work Phone: ALT [Catalytic activity/Vol] 12 U/L Normal 0-44 [facility]; [facility] Work Phone: AST [Catalytic activity/Vol] 13 U/L Normal 0-40 [facility]; [facility] Work Phone: Bilirubin [Mass/Vol] 1.1 mg/dL Normal 0.0-1.2 [facility] Internal Medicine; [facility] Work Phone: Calcium [Mass/Vol] 9.9 mg/dL Normal 8.6-10.2 [facility]; [facility] Work Phone: Chloride [Moles/Vol] 101 mmol/L Normal 97-108 [facility] Medicine; [facility] Work Phone: CO2 [Moles/Vol] 23 mmol/L Normal 18-29 [facility]; [facility] Work Phone: Creatinine [Mass/Vol] 1.15 mg/dL Normal 0.76-1.27 [facility]; [facility] Work Phone: GFR/1.73 sq M.predicted among blacks CKD-EPI (S/P/Bld) [Vol rate/Area] 74 mL/min/1.73 Normal [facility]; [facility] Work Phone: GFR/1.73 sq M.predicted among non-blacks CKD-EPI (S/P/Bld) [Vol rate/Area] 64 mL/min/1.73 Normal [facility]; [facility] Work Phone: Globulin (S) [Mass/Vol] 2.5 g/dL Normal 1.5-4.5 [facility] Internal [facility]; [facility] Work Phone: Glucose [Mass/Vol] 81 mg/dL Normal 65-99 [facility]; [facility] Work Phone: Potassium [Moles/Vol] 4.0 mmol/L Normal 3.5-5.2 [facility]; [facility] Work Phone: Protein [Mass/Vol] 7.0 g/dL Normal 6.0-8.5 [facility]; [facility] Work Phone: Sodium [Moles/Vol] 142 mmol/L Normal 134-144 [facility]; [facility] Work Phone: Urea nitrogen [Mass/Vol] 20 mg/dL Normal 8-27 [facility]; [facility] Work Phone: Urea nitrogen/Creatinine [Mass ratio] 17 mg/mg Normal 10-22 [facility]; [facility] Work Phone: RHEUMATOID FACTOR-QUANT ([phone])Ordered By: Trim Carpenter on 06-27-2014 Rheumatoid factor Qn 8.1 [IU]/mL Normal 0.0-13.9 [facility]; [facility] Work Phone: TSH ([id number])Ordered By: Syste m Hogshead Stock Clerk on 06-27-2014 TSH Qn 1.650 {uIU/mL} Normal 0.450-4.50 0 [facility]; [facility] Work Phone: Vitamin D Hydroxy ([id number])Ord ered By: Trim Carpenter on 06-27-2014 25-hydroxyvitamin D [Mass/Vol] 45.4 ng/mL Normal 30.0-100.0 [facility]; [facility] Work Phone: LIPID PANEL ([id number])Ordered B y: Trim Carpenter on 06-16-2014 Cholesterol [Mass/Vol] 250 mg/dL Abnormal 100-199 [facility]; [facility] Work Phone: Cholesterol in HDL [Mass/Vol] 36 mg/dL Abnormal [facility]; [facility] Work Phone: Cholesterol in LDL [Mass/Vol] 169 mg/dL Abnormal 0-99 [facility]; [facility] Work Phone: Cholesterol in LDL/Cholesterol in HDL [Mass ratio] 4.7 {ratio_units} Abnormal 0.0-3.6 [facility]; [facility] Work Phone: Cholesterol in VLDL [Mass/Vol] 45 mg/dL Abnormal 5-40 [facility]; [facility] Work Phone: Triglyceride [Mass/Vol] 223 mg/dL Abnormal 0-149 [facility]; [facility] Work Phone: METABOLIC PANEL, COMPREHENSI VE ([id number])Ordered By: Trim Carpenter on 06-16-2014 Albumin [Mass/Vol] 4.2 g/dL Normal 3.5-4.8 [facility]; [facility] Work Phone: Albumin/Globulin [Mass ratio] 1.8 {ratio} Normal 1.1-2.5 [facility]; [facility] Work Phone: ALP [Catalytic activity/Vol] 67 U/L Normal 39-117 [facility]; [facility] Work Phone: ALT [Catalytic activity/Vol] 9 U/L Normal 0-44 [facility]; [facility] Work Phone: AST [Catalytic activity/Vol] 13 U/L Normal 0-40 [facility]; [facility] Work Phone: Bilirubin [Mass/Vol] 1.0 mg/dL Normal 0.0-1.2 [facility]; [facility] Work Phone: Calcium [Mass/Vol] 9.1 mg/dL Normal 8.6-10.2 [facility]; [facility] Work Phone: Chloride [Moles/Vol] 105 mmol/L Normal 97-108 [facility]; [facility] Work Phone: CO2 [Moles/Vol] 23 mmol/L Normal 18-29 [facility]; [facility] Work Phone: Creatinine [Mass/Vol] 1.03 mg/dL Normal 0.76-1.27 [facility]; [facility] Work Phone: GFR/1.73 sq M.predicted among blacks CKD-EPI (S/P/Bld) [Vol rate/Area] 84 mL/min/1.73 Normal [facility]; [facility] Work Phone: GFR/1.73 sq M.predicted among non-blacks CKD-EPI (S/P/Bld) [Vol rate/Area] 73 mL/min/1.73 Normal [facility]; [facility] Work Phone: Globulin (S) [Mass/Vol] 2.3 g/dL Normal 1.5-4.5 [facility]; [facility] Work Phone: Glucose [Mass/Vol] 87 mg/dL Normal 65-99 [facility]; [facility] Work Phone: Potassium [Moles/Vol] 3.7 mmol/L Normal 3.5-5.2 [facility]; [facility] Work Phone: Protein [Mass/Vol] 6.5 g/dL Normal 6.0-8.5 [facility]; [facility] Work Phone: Sodium [Moles/Vol] 147 mmol/L Abnormal 134-144 Com[facility]; [facility] Work Phone: Urea nitrogen [Mass/Vol] 17 mg/dL Normal 8-27 [facility]; [facility] Work Phone: Urea nitrogen/Creatinine [Mass ratio] 17 mg/mg Normal 10-22 [facility]; [facility] Work Phone: TSH ([id number])Ordered By: Holli jo Hogshead Stock Clerk on 06-16-2014 TSH Qn 1.070 {uIU/mL} Normal 0.450-4.50 0 [facility]; [facility] Work Phone: Office Visit: [facility] 05-03-20 14 cardiac risk group B Invalid Interpretation Code [facility] Work Phone: LIPID PANEL ([id number])Ordered B y: Trim Carpenter on 02-14-2014 Cholesterol [Mass/Vol] 250 mg/dL Abnormal 100-199 [facility]; [facility] Work Phone: Cholesterol in HDL [Mass/Vol] 32 mg/dL Abnormal [facility]; [facility] Work Phone: Cholesterol in LDL [Mass/Vol] 164 mg/dL Abnormal 0-99 [facility]; [facility] Work Phone: Cholesterol in LDL/Cholesterol in HDL [Mass ratio] 5.1 {ratio_units} Abnormal 0.0-3.6 [facility]; [facility] Work Phone: Cholesterol in VLDL [Mass/Vol] 54 mg/dL Abnormal 5-40 [facility]; [facility] Work Phone: Triglyceride [Mass/Vol] 272 mg/dL Abnormal 0-149 [facility]; [facility] Work Phone: METABOLIC PANEL, COMPREHENSI VE ([id number])Ordered By: Trim Carpenter on 02-14-2014 Albumin [Mass/Vol] 4.3 g/dL Normal 3.5-4.8 [facility]; [facility] Work Phone: Albumin/Globulin [Mass ratio] 1.8 {ratio} Normal 1.1-2.5 [facility]; [facility] Work Phone: ALP [Catalytic activity/Vol] 71 U/L Normal 39-117 [facility]; [facility] Work Phone: ALT [Catalytic activity/Vol] 11 U/L Normal 0-44 [facility]; [facility] Work Phone: AST [Catalytic activity/Vol] 10 U/L Normal 0-40 [facility]; [facility] Work Phone: Bilirubin [Mass/Vol] 0.7 mg/dL Normal 0.0-1.2 [facility] re[facility]; [facility] Work Phone: Calcium [Mass/Vol] 9.1 mg/dL Normal 8.6-10.2 [facility]; [facility] Work Phone: Chloride [Moles/Vol] 100 mmol/L Normal 97-108 [facility] rehens[facility]; [facility] Work Phone: CO2 [Moles/Vol] 25 mmol/L Normal 18-29 [facility]; [facility] Work Phone: Creatinine [Mass/Vol] 1.06 mg/dL Normal 0.76-1.27 [facility]; [facility] Work Phone: GFR/1.73 sq M.predicted among blacks CKD-EPI (S/P/Bld) [Vol rate/Area] 81 mL/min/1.73 Normal [facility]; [facility] Work Phone: GFR/1.73 sq M.predicted among non-blacks CKD-EPI (S/P/Bld) [Vol rate/Area] 70 mL/min/1.73 Normal [facility]; [facility] Work Phone: Globulin (S) [Mass/Vol] 2.4 g/dL Normal 1.5-4.5 [facility]; [facility] Work Phone: Glucose [Mass/Vol] 85 mg/dL Normal 65-99 [facility]; [facility] Work Phone: Potassium [Moles/Vol] 4.0 mmol/L Normal 3.5-5.2 [facility] prehensive [facility]; [facility] Work Phone: Protein [Mass/Vol] 6.7 g/dL Normal 6.0-8.5 [facility]; [facility] Work Phone: Sodium [Moles/Vol] 142 mmol/L Normal 134-144 [facility]; [facility] Work Phone: Urea nitrogen [Mass/Vol] 18 mg/dL Normal 8-27 [facility]; [facility] Work Phone: Urea nitrogen/Creatinine [Mass ratio] 17 mg/mg Normal 10-22 [facility]; [facility] Work Phone: PSA (PROSTATE SPECIFIC ANTIG EN) (V76.44)Ordered By: Trim Carpenter on 02-14-2014 Prostate specific Ag [Mass/Vol] 1.7 ng/mL Normal 0.0-4.0 [facility]; [facility] Work Phone: TSH ([id number])Ordered By: Holli m Hogshead Stock Clerk on 02-14-2014 TSH Qn 9.320 {uIU/mL} Abnormal 0.450-4.50 0 [facility]; [facility] Work Phone: TSH Qn TSHA Normal [facility]; [facility] Work Phone: Vitamin D Hydroxy ([id number])Ord ered By: Trim Carpenter on 02-14-2014 25-hydroxyvitamin D [Mass/Vol] 32.6 ng/mL Normal 30.0-100.0 [facility]; [facility] Work Phone: URINE PAYTON CULTURE (MELVIN COL COUNT) ([id number])Ordered By: Trim Carpenter on 11-10-2013 Bacteria identified Cx Nom (U) Final report Normal [facility]; [facility] Work Phone: Bacteria identified Cx Nom (U) MUG Normal [facility]; [facility] Work Phone: URINE PAYTON CULTURE (MELVIN COL COUNT) ([id number])Ordered By: Trim Carpenter on 10-21-2013 Bacteria identified Cx Nom (U) Final report Abnormal [facility]; [facility] Work Phone: Bacteria identified Cx Nom (U) Enterococcus faecalis Abnormal [facility]; [facility] Work Phone: Other Antibiotic [Susc] MIHEAD Normal [facility]; [facility] Work Phone: CBC WITH MANUAL DIFF ([id number]) Ordered By: Trim Carpenter on 10-07-2013 Basophils (Bld) [#/Vol] 0.0 10*3/uL Normal 0.0-0.2 [facility]; [facility] Work Phone: Basophils/100 WBC (Bld) 1 % Normal 0-3 [facility]; [facility] Work Phone: Eosinophils (Bld) [#/Vol] 0.2 10*3/uL Normal 0.0-0.4 [facility]; [facility] Work Phone: Eosinophils/100 WBC (Bld) 3 % Normal 0-5 [facility]; [facility] Work Phone: Erythrocyte distribution width (RBC) [Ratio] 13.6 % Normal 12.3-15.4 [facility]; [facility] Work Phone: Hematocrit (Bld) [Volume fraction] 41.4 % Normal 37.5-51.0 [facility]; [facility] Work Phone: Hemoglobin (Bld) [Mass/Vol] 14.4 g/dL Normal 12.6-17.7 [facility]; [facility] Work Phone: Immature granulocytes (Bld) [#/Vol] 0.0 10*3/uL Normal 0.0-0.1 [facility]; [facility] Work Phone: Immature granulocytes/100 WBC (Bld) 0 % Normal 0-2 [facility]; [facility] Work Phone: Lymphocytes (Bld) [#/Vol] 1.8 10*3/uL Normal 0.7-3.1 [facility]; [facility] Work Phone: Lymphocytes/100 WBC (Bld) 26 % Normal 14-46 [facility]; [facility] Work Phone: MCH (RBC) [Entitic mass] 30.3 pg Normal 26.6-33.0 [facility]; [facility] Work Phone: MCHC (RBC) [Mass/Vol] 34.8 g/dL Normal 31.5-35.7 [facility] prehensive [facility]; [facility] Work Phone: MCV (RBC) [Entitic vol] 87 fL Normal 79-97 [facility]; [facility] Work Phone: Monocytes (Bld) [#/Vol] 0.6 10*3/uL Normal 0.1-0.9 [facility]; [facility] Work Phone: Monocytes/100 WBC (Bld) 9 % Normal 4-12 [facility]; [facility] Work Phone: Neutrophils (Bld) [#/Vol] 4.5 10*3/uL Normal 1.4-7.0 [facility]; [facility] Work Phone: Neutrophils/100 WBC (Bld) 61 % Normal 40-74 [facility]; [facility] Work Phone: Platelets (Bld) [#/Vol] 363 10*3/uL Normal 155-379 [facility]; [facility] Work Phone: RBC (Bld) [#/Vol] 4.76 10*6/uL Normal 4.14-5.80 [facility] ehensive Internal [facility]; [facility] Work Phone: WBC (Bld) [#/Vol] 7.2 10*3/uL Normal 3.4-10.8 Compre hensive [facility]; [facility] Work Phone: LIPID PANEL ([id number])Ordered B y: Trim Carpenter on 10-07-2013 Cholesterol [Mass/Vol] 243 mg/dL Abnormal 100-199 [facility]; [facility] Work Phone: Cholesterol in HDL [Mass/Vol] 37 mg/dL Abnormal [facility]; [facility] Work Phone: Cholesterol in LDL [Mass/Vol] 159 mg/dL Abnormal 0-99 [facility]; [facility] Work Phone: Cholesterol in LDL/Cholesterol in HDL [Mass ratio] 4.3 {ratio_units} Abnormal 0.0-3.6 [facility]; [facility] Work Phone: Cholesterol in VLDL [Mass/Vol] 47 mg/dL Abnormal 5-40 [facility]; [facility] Work Phone: Triglyceride [Mass/Vol] 234 mg/dL Abnormal 0-149 [facility]; [facility] Work Phone: METABOLIC PANEL, COMPREHENSI VE ([id number])Ordered By: Trim Carpenter on 10-07-2013 Albumin [Mass/Vol] 4.2 g/dL Normal 3.5-4.8 [facility]; [facility] Work Phone: Albumin/Globulin [Mass ratio] 1.5 {ratio} Normal 1.1-2.5 [facility]; [facility] Work Phone: ALP [Catalytic activity/Vol] 76 U/L Normal 39-117 [facility]; [facility] Work Phone: ALT [Catalytic activity/Vol] 25 U/L Normal 0-44 [facility]; [facility] Work Phone: AST [Catalytic activity/Vol] 26 U/L Normal 0-40 [facility]; [facility] Work Phone: Bilirubin [Mass/Vol] 0.7 mg/dL Normal 0.0-1.2 [facility]; [facility] Work Phone: Calcium [Mass/Vol] 9.3 mg/dL Normal 8.6-10.2 [facility]; [facility] Work Phone: Chloride [Moles/Vol] 104 mmol/L Normal 97-108 [facility] Internal [facility]; [facility] Work Phone: CO2 [Moles/Vol] 24 mmol/L Normal 19-28 [facility]; [facility] Work Phone: Creatinine [Mass/Vol] 1.15 mg/dL Normal 0.76-1.27 [facility]; [facility] Work Phone: GFR/1.73 sq M.predicted among blacks CKD-EPI (S/P/Bld) [Vol rate/Area] 74 mL/min/1.73 Normal [facility]; [facility] Work Phone: GFR/1.73 sq M.predicted among non-blacks CKD-EPI (S/P/Bld) [Vol rate/Area] 64 mL/min/1.73 Normal [facility]; [facility] Work Phone: Globulin (S) [Mass/Vol] 2.8 g/dL Normal 1.5-4.5 [facility]; [facility] Work Phone: Glucose [Mass/Vol] 96 mg/dL Normal 65-99 [facility]; [facility] Work Phone: Potassium [Moles/Vol] 4.2 mmol/L Normal 3.5-5.2 [facility]; [facility] Work Phone: Protein [Mass/Vol] 7.0 g/dL Normal 6.0-8.5 [facility]; [facility] Work Phone: Sodium [Moles/Vol] 144 mmol/L Normal 134-144 [facility]; [facility] Work Phone: Urea nitrogen [Mass/Vol] 23 mg/dL Normal 8-27 [facility]; [facility] Work Phone: Urea nitrogen/Creatinine [Mass ratio] 20 mg/mg Normal 10-22 [facility]; [facility] Work Phone: PSA (PROSTATE SPECIFIC ANTIG EN) (V76.44)Ordered By: Trim Carpenter on 10-07-2013 Prostate specific Ag [Mass/Vol] 5.3 ng/mL Abnormal 0.0-4.0 [facility]; [facility] Work Phone: URINALYSIS, W/ MICRO ([id number]) Ordered By: Trim Carpenter on 10-07-2013 Appearance (U) Clear Normal [facility]; [facility] Work Phone: Bilirubin Ql (U) Negative Normal Comprehe nsive Internal Medicine; [facility] Work Phone: Color (U) Yellow Normal [facility]; [facility] Work Phone: Glucose Ql (U) Negative Normal [facility]; [facility] Work Phone: Hemoglobin Ql (U) Negative Normal Compreh ensive [facility]; [facility] Work Phone: Ketones Ql (U) Negative Normal [facility]; [facility] Work Phone: Leukocyte esterase Test strip Ql (U) Trace Abnormal [facility]; [facility] Work Phone: Microscopic observation LM Nom (Urine sed) See below: Normal [facility]; [facility] Work Phone: Nitrite Ql (U) Negative Normal [facility]; [facility] Work Phone: pH (U) 7.0 [pH] Normal 5.0-7.5 [facility]; [facility] Work Phone: Protein Ql (U) Trace Normal [facility]; [facility] Work Phone: Specific gravity (U) [Rel density] 1.023 1 Normal 1.005-1.03 0 [facility]; [facility] Work Phone: Urobilinogen (U) [Mass/Vol] 0.2 mg/dL Normal 0.0-1.9 [facility]; [facility] Work Phone: Vitamin D Hydroxy ([id number])Ord ered By: Trim Carpenter on 10-07-2013 25-hydroxyvitamin D [Mass/Vol] 43.1 ng/mL Normal 30.0-100.0 [facility]; [facility] Work Phone: CBC WITH MANUAL DIFF ([id number]) Ordered By: Trim Carpenter on 06-08-2013 Basophils (Bld) [#/Vol] 0.1 10*3/uL Normal 0.0-0.2 [facility]; [facility] Work Phone: Basophils/100 WBC (Bld) 1 % Normal 0-3 [facility]; [facility] Work Phone: Eosinophils (Bld) [#/Vol] 0.3 10*3/uL Normal 0.0-0.4 [facility]; [facility] Work Phone: Eosinophils/100 WBC (Bld) 4 % Normal 0-5 [facility]; [facility] Work Phone: Erythrocyte distribution width (RBC) [Ratio] 13.2 % Normal 12.3-15.4 [facility]; [facility] Work Phone: Hematocrit (Bld) [Volume fraction] 42.5 % Normal 37.5-51.0 [facility]; [facility] Work Phone: Hemoglobin (Bld) [Mass/Vol] 14.3 g/dL Normal 12.6-17.7 [facility]; [facility] Work Phone: Immature granulocytes (Bld) [#/Vol] 0.0 10*3/uL Normal 0.0-0.1 [facility]; [facility] Work Phone: Immature granulocytes/100 WBC (Bld) 0 % Normal 0-2 [facility]; [facility] Work Phone: Lymphocytes (Bld) [#/Vol] 1.8 10*3/uL Normal 0.7-3.1 [facility]; [facility] Work Phone: Lymphocytes/100 WBC (Bld) 25 % Normal 14-46 [facility]; [facility] Work Phone: MCH (RBC) [Entitic mass] 29.2 pg Normal 26.6-33.0 [facility]; [facility] Work Phone: MCHC (RBC) [Mass/Vol] 33.6 g/dL Normal 31.5-35.7 [facility] prehensive [facility]; [facility] Work Phone: MCV (RBC) [Entitic vol] 87 fL Normal 79-97 [facility]; [facility] Work Phone: Monocytes (Bld) [#/Vol] 0.8 10*3/uL Normal 0.1-0.9 [facility]; [facility] Work Phone: Monocytes/100 WBC (Bld) 12 % Normal 4-12 [facility]; [facility] Work Phone: Neutrophils (Bld) [#/Vol] 4.2 10*3/uL Normal 1.4-7.0 [facility]; [facility] Work Phone: Neutrophils/100 WBC (Bld) 58 % Normal 40-74 [facility]; [facility] Work Phone: Platelets (Bld) [#/Vol] 272 10*3/uL Normal 155-379 [facility]; [facility] Work Phone: RBC (Bld) [#/Vol] 4.89 10*6/uL Normal 4.14-5.80 [facility] ehensive Internal Medicine; [facility] Work Phone: WBC (Bld) [#/Vol] 7.2 10*3/uL Normal 3.4-10.8 Compre [facility]; [facility] Work Phone: LIPID PANEL ([id number])Ordered B y: Trim Carpenter on 06-08-2013 Cholesterol [Mass/Vol] 243 mg/dL Abnormal 100-199 [facility]; [facility] Work Phone: Cholesterol in HDL [Mass/Vol] 35 mg/dL Abnormal [facility]; [facility] Work Phone: Cholesterol in LDL [Mass/Vol] 159 mg/dL Abnormal 0-99 [facility]; [facility] Work Phone: Cholesterol in LDL/Cholesterol in HDL [Mass ratio] 4.5 {ratio_units} Abnormal 0.0-3.6 [facility]; [facility] Work Phone: Cholesterol in VLDL [Mass/Vol] 49 mg/dL Abnormal 5-40 [facility]; [facility] Work Phone: Triglyceride [Mass/Vol] 245 mg/dL Abnormal 0-149 [facility]; [facility] Work Phone: METABOLIC PANEL, COMPREHENSI VE ([id number])Ordered By: Trim Carpenter on 06-08-2013 Albumin [Mass/Vol] 4.2 g/dL Normal 3.5-4.8 [facility]; [facility] Work Phone: Albumin/Globulin [Mass ratio] 1.5 {ratio} Normal 1.1-2.5 [facility]; [facility] Work Phone: ALP [Catalytic activity/Vol] 84 U/L Normal 39-117 [facility]; [facility] Work Phone: ALT [Catalytic activity/Vol] 20 U/L Normal 0-44 [facility]; [facility] Work Phone: AST [Catalytic activity/Vol] 18 U/L Normal 0-40 [facility]; [facility] Work Phone: Bilirubin [Mass/Vol] 0.9 mg/dL Normal 0.0-1.2 [facility] Work Phone: Calcium [Mass/Vol] 9.2 mg/dL Normal 8.6-10.2 [facility]; [facility] Work Phone: Chloride [Moles/Vol] 102 mmol/L Normal 97-108 [facility]; [facility] Work Phone: CO2 [Moles/Vol] 25 mmol/L Normal 19-28 [facility]; [facility] Work Phone: Creatinine [Mass/Vol] 1.13 mg/dL Normal 0.76-1.27 [facility]; [facility] Work Phone: GFR/1.73 sq M.predicted among blacks CKD-EPI (S/P/Bld) [Vol rate/Area] 76 mL/min/1.73 Normal [facility]; [facility] Work Phone: GFR/1.73 sq M.predicted among non-blacks CKD-EPI (S/P/Bld) [Vol rate/Area] 65 mL/min/1.73 Normal [facility]; [facility] Work Phone: Globulin (S) [Mass/Vol] 2.8 g/dL Normal 1.5-4.5 [facility]; [facility] Work Phone: Glucose [Mass/Vol] 91 mg/dL Normal 65-99 [facility]; [facility] Work Phone: Potassium [Moles/Vol] 3.8 mmol/L Normal 3.5-5.2 [facility] prehensive [facility] Medicine; [facility] Work Phone: Protein [Mass/Vol] 7.0 g/dL Normal 6.0-8.5 [facility]; [facility] Work Phone: Sodium [Moles/Vol] 141 mmol/L Normal 134-144 [facility]; [facility] Work Phone: Urea nitrogen [Mass/Vol] 16 mg/dL Normal 8-27 [facility]; [facility] Work Phone: Urea nitrogen/Creatinine [Mass ratio] 14 mg/mg Normal 10-22 [facility]; [facility] Work Phone: TSH ([id number])Ordered By: Holli m Hogshead Stock Clerk on 06-08-2013 TSH Qn 1.830 {uIU/mL} Normal 0.450-4.50 0 [facility]; [facility] Work Phone: Vitamin D Hydroxy ([id number])Ord ered By: Trim Carpenter on 06-08-2013 25-hydroxyvitamin D [Mass/Vol] 45.6 ng/mL Normal 30.0-100.0 [facility]; [facility] Work Phone: CBC WITH MANUAL DIFF ([id number]) Ordered By: Trim Carpenter on 02-15-2013 Basophils (Bld) [#/Vol] 0.0 10*3/uL Normal 0.0-0.2 [facility]; [facility] Work Phone: Basophils/100 WBC (Bld) 1 % Normal 0-3 [facility]; [facility] Work Phone: Eosinophils (Bld) [#/Vol] 0.2 10*3/uL Normal 0.0-0.4 [facility]; [facility] Work Phone: Eosinophils/100 WBC (Bld) 3 % Normal 0-5 [facility]; [facility] Work Phone: Erythrocyte distribution width (RBC) [Ratio] 13.5 % Normal 12.3-15.4 [facility]; [facility] Work Phone: Hematocrit (Bld) [Volume fraction] 42.3 % Normal 37.5-51.0 [facility]; [facility] Work Phone: Hemoglobin (Bld) [Mass/Vol] 14.5 g/dL Normal 12.6-17.7 [facility]; [facility] Work Phone: Immature granulocytes (Bld) [#/Vol] 0.0 10*3/uL Normal 0.0-0.1 [facility]; [facility] Work Phone: Immature granulocytes/100 WBC (Bld) 0 % Normal 0-2 [facility]; [facility] Work Phone: Lymphocytes (Bld) [#/Vol] 1.5 10*3/uL Normal 0.7-3.1 [facility]; [facility] Work Phone: Lymphocytes/100 WBC (Bld) 27 % Normal 14-46 [facility]; [facility] Work Phone: MCH (RBC) [Entitic mass] 30.4 pg Normal 26.6-33.0 [facility]; [facility] Work Phone: MCHC (RBC) [Mass/Vol] 34.3 g/dL Normal 31.5-35.7 [facility] prehensive [facility]; [facility] Work Phone: MCV (RBC) [Entitic vol] 89 fL Normal 79-97 [facility]; [facility] Work Phone: Monocytes (Bld) [#/Vol] 0.6 10*3/uL Normal 0.1-0.9 [facility]; [facility] Work Phone: Monocytes/100 WBC (Bld) 10 % Normal 4-12 [facility]; [facility] Work Phone: Neutrophils (Bld) [#/Vol] 3.4 10*3/uL Normal 1.4-7.0 [facility]; [facility] Work Phone: Neutrophils/100 WBC (Bld) 59 % Normal 40-74 [facility]; [facility] Work Phone: Platelets (Bld) [#/Vol] 255 10*3/uL Normal 155-379 [facility]; [facility] Work Phone: RBC (Bld) [#/Vol] 4.77 10*6/uL Normal 4.14-5.80 Compr ehensive [facility]; [facility] Work Phone: WBC (Bld) [#/Vol] 5.8 10*3/uL Normal 3.4-10.8 Compre [facility]; [facility] Work Phone: LIPID PANEL ([id number])Ordered B y: Trim Carpenter on 02-15-2013 Cholesterol [Mass/Vol] 263 mg/dL Abnormal 100-199 [facility]; [facility] Work Phone: Cholesterol in HDL [Mass/Vol] 40 mg/dL Normal [facility]; [facility] Work Phone: Cholesterol in LDL [Mass/Vol] 184 mg/dL Abnormal 0-99 [facility]; [facility] Work Phone: Cholesterol in LDL/Cholesterol in HDL [Mass ratio] 4.6 {ratio_units} Abnormal 0.0-3.6 [facility]; [facility] Work Phone: Cholesterol in VLDL [Mass/Vol] 39 mg/dL Normal 5-40 [facility]; [facility] Work Phone: Triglyceride [Mass/Vol] 197 mg/dL Abnormal 0-149 [facility]; [facility] Work Phone: METABOLIC PANEL, COMPREHENSI VE ([id number])Ordered By: Trim Carpenter on 02-15-2013 Albumin [Mass/Vol] 4.4 g/dL Normal 3.5-4.8 [facility]; [facility] Work Phone: Albumin/Globulin [Mass ratio] 1.7 {ratio} Normal 1.1-2.5 [facility]; [facility] Work Phone: ALP [Catalytic activity/Vol] 78 U/L Normal 44-103 [facility]; [facility] Work Phone: ALT [Catalytic activity/Vol] 12 U/L Normal 0-44 [facility]; [facility] Work Phone: AST [Catalytic activity/Vol] 14 U/L Normal 0-40 [facility]; [facility] Work Phone: Bilirubin [Mass/Vol] 1.0 mg/dL Normal 0.0-1.2 [facility]; [facility] Work Phone: Calcium [Mass/Vol] 9.3 mg/dL Normal 8.6-10.2 [facility]; [facility] Work Phone: Chloride [Moles/Vol] 101 mmol/L Normal 97-108 [facility]; [facility] Work Phone: CO2 [Moles/Vol] 24 mmol/L Normal 19-28 [facility]; [facility] Work Phone: Creatinine [Mass/Vol] 1.07 mg/dL Normal 0.76-1.27 [facility]; [facility] Work Phone: GFR/1.73 sq M.predicted among blacks CKD-EPI (S/P/Bld) [Vol rate/Area] 81 mL/min/1.73 Normal [facility]; [facility] Work Phone: GFR/1.73 sq M.predicted among non-blacks CKD-EPI (S/P/Bld) [Vol rate/Area] 70 mL/min/1.73 Normal [facility]; [facility] Work Phone: Globulin (S) [Mass/Vol] 2.6 g/dL Normal 1.5-4.5 [facility]; [facility] Work Phone: Glucose [Mass/Vol] 84 mg/dL Normal 65-99 [facility]; [facility] Work Phone: Potassium [Moles/Vol] 4.2 mmol/L Normal 3.5-5.2 [facility] prehensive Internal Medicine; [facility] Work Phone: Protein [Mass/Vol] 7.0 g/dL Normal 6.0-8.5 [facility]; [facility] Work Phone: Sodium [Moles/Vol] 141 mmol/L Normal 134-144 [facility]; [facility] Work Phone: Urea nitrogen [Mass/Vol] 15 mg/dL Normal 8-27 [facility]; [facility] Work Phone: Urea nitrogen/Creatinine [Mass ratio] 14 mg/mg Normal 10-22 [facility]; [facility] Work Phone: TSH ([id number])Ordered By: Holli jo Hogshead Stock Clerk on 02-15-2013 TSH Qn 1.680 {uIU/mL} Normal 0.450-4.50 0 [facility]; [facility] Work Phone: Vitamin D Hydroxy ([id number])Ord ered By: Trim Carpenter on 02-15-2013 25-hydroxyvitamin D [Mass/Vol] 51.0 ng/mL Normal 30.0-100.0 [facility]; [facility] Work Phone: Replaced Document: Caleb Crystal LEANDER Friedman 01-25-2013 Pulse (Heart Rate) 409 ms Invalid Interpretation Code [facility] Work Phone: Lab Report: Ordered by Dr. Jani doshi 10-14-2012 Cholesterol 229 mg/dL Invalid Interpretation Code [facility] [employer] Work Phone: HDL Cholesterol 35 mg/dL Invalid Interpretation Code [facility] [employer] Work Phone: LDL Cholesterol 155 mg/dL Invalid Interpretation Code [facility] Work Phone: Triglyceride 195 mg/dL Invalid Interpretation Code [facility] [employer] Work Phone: very low density lipoproteins 39 mg/dL Invalid Interpretation Code [facility] Work Phone: LIPID PANEL ([id number])Ordered B y: Trim Carpenter on 10-13-2012 Cholesterol [Mass/Vol] 229 mg/dL Abnormal 100-199 [facility]; [facility] Work Phone: Cholesterol in HDL [Mass/Vol] 35 mg/dL Abnormal [facility]; [facility] Work Phone: Cholesterol in LDL [Mass/Vol] 155 mg/dL Abnormal 0-99 [facility]; [facility] Work Phone: Cholesterol in LDL/Cholesterol in HDL [Mass ratio] 4.4 {ratio_units} Abnormal 0.0-3.6 [facility]; [facility] Work Phone: Cholesterol in VLDL [Mass/Vol] 39 mg/dL Normal 5-40 [facility]; [facility] Work Phone: Triglyceride [Mass/Vol] 195 mg/dL Abnormal 0-149 [facility]; [facility] Work Phone: Lab Report: Ordered by Dr. Jani doshi 10-13-2012 Albumin 4.2 g/dL Normal 3.5-4.8 [facility] [employer] Work Phone: Albumin/Globulin Ratio 1.8 {ratio} Normal 1.1-2.5 [facility] [employer] Work Phone: Protein 6.6 g/dL Normal 6.0-8.5 [facility] Work Phone: Globulin 2.4 g/dL Invalid Interpretation Code [facility] [employer] Work Phone: METABOLIC PANEL, COMPREHENSI VE ([id number])Ordered By: Trim Carpenter on 10-13-2012 ALP [Catalytic activity/Vol] 73 U/L Normal 25-160 [facility]; [facility] Work Phone: ALT [Catalytic activity/Vol] 12 U/L Normal 0-44 [facility]; [facility] Work Phone: AST [Catalytic activity/Vol] 17 U/L Normal 0-40 [facility]; [facility] Work Phone: Bilirubin [Mass/Vol] 0.9 mg/dL Normal 0.0-1.2 [facility]; [facility] Work Phone: Calcium [Mass/Vol] 8.8 mg/dL Normal 8.6-10.2 [facility]; [facility] Work Phone: Chloride [Moles/Vol] 107 mmol/L Normal 97-108 [facility]; [facility] Work Phone: CO2 [Moles/Vol] 21 mmol/L Normal 20-32 [facility]; [facility] Work Phone: Creatinine [Mass/Vol] 1.19 mg/dL Normal 0.76-1.27 [facility]; [facility] Work Phone: GFR/1.73 sq M.predicted among blacks CKD-EPI (S/P/Bld) [Vol rate/Area] 71 mL/min/1.73 Normal [facility]; [facility] Work Phone: GFR/1.73 sq M.predicted among non-blacks CKD-EPI (S/P/Bld) [Vol rate/Area] 62 mL/min/1.73 Normal [facility]; [facility] Work Phone: Globulin (S) [Mass/Vol] 2.4 g/dL Normal 1.5-4.5 [facility] Work Phone: Glucose [Mass/Vol] 97 mg/dL Normal 65-99 [facility]; [facility] Work Phone: Potassium [Moles/Vol] 4.0 mmol/L Normal 3.5-5.2 [facility] prehensive Internal Medicine; [facility] Work Phone: Sodium [Moles/Vol] 144 mmol/L Normal 134-144 [facility]; [facility] Work Phone: Urea nitrogen [Mass/Vol] 23 mg/dL Normal 8-27 [facility]; [facility] Work Phone: Urea nitrogen/Creatinine [Mass ratio] 19 mg/mg Normal 10-22 [facility]; [facility] Work Phone: PSA (PROSTATE SPECIFIC ANTIG EN) (V76.44)Ordered By: Trim Carpenter on 10-13-2012 Prostate specific Ag [Mass/Vol] 1.0 ng/mL Normal 0.0-4.0 [facility]; [facility] Work Phone: TSH ([id number])Ordered By: Holli m Hogshead Stock Clerk on 10-13-2012 TSH Qn 1.070 {uIU/mL} Normal 0.450-4.50 0 [facility]; [facility] Work Phone: Vitamin D Hydroxy ([phone])Ord ered By: Trim Carpenter on 10-13-2012 25-hydroxyvitamin D [Mass/Vol] 45.3 ng/mL Normal 30.0-100.0 [facility] Internal Medicine; [facility] Work Phone: Clinical Lists Update: Prelo acquisition professional 06-15-2012 Erythrocytes (RBC) 4.90 10*6/uL Invalid Interpretation Code [facility] Work Phone: MCH 29.4 pg Invalid Interpretation Code [facility] Work Phone: MCHC mass conc (RBC) 34.0 % Invalid Interpretation Code [facility] Work Phone: MCV 86.5 fL Invalid Interpretation Code [facility] Work Phone: KHANH (ANTINUCLEAR ANTIBODY) ( [id number])Ordered By: Trim Carpenter on 03-19-2012 Nuclear Ab Ql (S) Negative Normal [facility]; [facility] Work Phone: C-REACTIVE PROTEIN ([id number])Or dered By: Trim Carpenter on 03-19-2012 CRP [Mass/Vol] 3.9 mg/L Normal 0.0-4.9 [facility]; [facility] Work Phone: RHEUMATOID FACTOR-QUANT ([phone])Ordered By: Trim Carpenter on 03-19-2012 Rheumatoid factor Qn 10.2 [IU]/mL Normal 0.0-13.9 [facility]; [facility] Work Phone: SED RATE ERYTHROCYTE ([id number]) Ordered By: Trim Carpenter on 03-19-2012 ESR (Bld) [Velocity] 15 mm/h Normal 0-30 Comp rehensive [facility]; [facility] Work Phone: Uric Acid Blood ([id number])Order ed By: Trim Carpenter on 03-19-2012 Urate [Mass/Vol] 7.5 mg/dL Normal 3.7-8.6 Comprehe nsive [facility] Medicine; [facility] Work Phone: VITAMIN B-12 (CYANOCOBALAMIN ) ([id number])Ordered By: Trim Carpenter on 03-19-2012 Cobalamin (Vitamin B12) [Mass/Vol] 448 pg/mL Normal 211-946 [facility]; [facility] Work Phone: CBC WITH MANUAL DIFF ([id number]) Ordered By: Trim Carpenter on 03-02-2012 Basophils (Bld) [#/Vol] 0.0 10*3/uL Normal 0.0-0.2 [facility]; [facility] Work Phone: Basophils/100 WBC (Bld) 1 % Normal 0-3 [facility]; [facility] Work Phone: Eosinophils (Bld) [#/Vol] 0.2 10*3/uL Normal 0.0-0.4 [facility]; [facility] Work Phone: Eosinophils/100 WBC (Bld) 3 % Normal 0-7 [facility]; [facility] Work Phone: Erythrocyte distribution width (RBC) [Ratio] 13.5 % Normal 12.3-15.4 [facility]; [facility] Work Phone: Hematocrit (Bld) [Volume fraction] 39.1 % Normal 37.5-51.0 [facility]; [facility] Work Phone: Hemoglobin (Bld) [Mass/Vol] 13.5 g/dL Normal 12.6-17.7 [facility]; [facility] Work Phone: Immature granulocytes (Bld) [#/Vol] 0.0 10*3/uL Normal 0.0-0.1 [facility]; [facility] Work Phone: Immature granulocytes/100 WBC (Bld) 0 % Normal 0-2 [facility]; [facility] Work Phone: Lymphocytes (Bld) [#/Vol] 1.6 10*3/uL Normal 0.7-4.5 [facility]; [facility] Work Phone: Lymphocytes/100 WBC (Bld) 30 % Normal 14-46 [facility]; [facility] Work Phone: MCH (RBC) [Entitic mass] 30.5 pg Normal 26.6-33.0 [facility]; [facility] Work Phone: MCHC (RBC) [Mass/Vol] 34.5 g/dL Normal 31.5-35.7 [facility] prehensive Internal Medicine; [facility] Work Phone: MCV (RBC) [Entitic vol] 89 fL Normal 79-97 [facility]; [facility] Work Phone: Monocytes (Bld) [#/Vol] 0.5 10*3/uL Normal 0.1-1.0 [facility]; [facility] Work Phone: Monocytes/100 WBC (Bld) 10 % Normal 4-13 [facility]; [facility] Work Phone: Neutrophils (Bld) [#/Vol] 3.0 10*3/uL Normal 1.8-7.8 [facility]; [facility] Work Phone: Neutrophils/100 WBC (Bld) 56 % Normal 40-74 [facility]; [facility] Work Phone: Platelets (Bld) [#/Vol] 245 10*3/uL Normal 140-415 [facility]; [facility] Work Phone: RBC (Bld) [#/Vol] 4.42 10*6/uL Normal 4.14-5.80 [facility] Work Phone: WBC (Bld) [#/Vol] 5.3 10*3/uL Normal 4.0-10.5 [facility]; [facility] Work Phone: LIPID PANEL ([id number])Ordered B y: Trim Carpenter on 03-02-2012 Cholesterol [Mass/Vol] 226 mg/dL Abnormal 100-199 [facility]; [facility] Work Phone: Cholesterol in HDL [Mass/Vol] 37 mg/dL Abnormal [facility]; [facility] Work Phone: Cholesterol in LDL [Mass/Vol] 150 mg/dL Abnormal 0-99 [facility]; [facility] Work Phone: Cholesterol in LDL/Cholesterol in HDL [Mass ratio] 4.1 {ratio_units} Abnormal 0.0-3.6 [facility]; [facility] Work Phone: Cholesterol in VLDL [Mass/Vol] 39 mg/dL Normal 5-40 [facility]; [facility] Work Phone: Triglyceride [Mass/Vol] 196 mg/dL Abnormal 0-149 [facility]; [facility] Work Phone: METABOLIC PANEL, COMPREHENSI VE ([id number])Ordered By: Trim Carpenter on 03-02-2012 Albumin [Mass/Vol] 4.3 g/dL Normal 3.6-4.8 [facility]; [facility] Work Phone: Albumin/Globulin [Mass ratio] 1.9 {ratio} Normal 1.1-2.5 [facility]; [facility] Work Phone: ALP [Catalytic activity/Vol] 68 U/L Normal 25-160 [facility]; [facility] Work Phone: ALT [Catalytic activity/Vol] 26 U/L Normal 0-55 [facility]; [facility] Work Phone: AST [Catalytic activity/Vol] 17 U/L Normal 0-40 [facility]; [facility] Work Phone: Bilirubin [Mass/Vol] 1.3 mg/dL Abnormal 0.0-1.2 [facility]; [facility] Work Phone: Calcium [Mass/Vol] 9.4 mg/dL Normal 8.6-10.2 [facility]; [facility] Work Phone: Chloride [Moles/Vol] 104 mmol/L Normal 97-108 [facility]; [facility] Work Phone: CO2 [Moles/Vol] 26 mmol/L Normal 20-32 [facility]; [facility] Work Phone: Creatinine [Mass/Vol] 1.07 mg/dL Normal 0.76-1.27 [facility] Internal Medicine; [facility] Internal Medicine Work Phone: GFR/1.73 sq M.predicted among blacks CKD-EPI (S/P/Bld) [Vol rate/Area] 81 mL/min/1.73 Normal [facility]; [facility] Work Phone: GFR/1.73 sq M.predicted among non-blacks CKD-EPI (S/P/Bld) [Vol rate/Area] 70 mL/min/1.73 Normal [facility]; [facility] Work Phone: Globulin (S) [Mass/Vol] 2.3 g/dL Normal 1.5-4.5 [facility]; [facility] Medicine Work Phone: Glucose [Mass/Vol] 92 mg/dL Normal 65-99 [facility] Internal Medicine; [facility] Medicine Work Phone: Potassium [Moles/Vol] 4.2 mmol/L Normal 3.5-5.2 [facility] Internal Medicine; [facility] Medicine Work Phone: Protein [Mass/Vol] 6.6 g/dL Normal 6.0-8.5 [facility] Internal Medicine; [facility] Internal Medicine Work Phone: Sodium [Moles/Vol] 143 mmol/L Normal 134-144 [facility] Internal Medicine; [facility] Work Phone: Urea nitrogen [Mass/Vol] 16 mg/dL Normal 8-27 [facility]; [facility] Work Phone: Urea nitrogen/Creatinine [Mass ratio] 15 mg/mg Normal 10-22 [facility] Medicine; [facility] Medicine Work Phone: TSH ([id number])Ordered By: Holli m Hogshead Stock Clerk on 03-02-2012 TSH Qn 0.972 {uIU/mL} Normal 0.450-4.50 0 [facility] Work Phone: Vitamin D Hydroxy ([id number])Ord ered By: Trim Carpenter on 03-02-2012 25-hydroxyvitamin D [Mass/Vol] 44.2 ng/mL Normal 30.0-100.0 [facility] Work Phone: Anti-TPO Antibody ([id number])Ord ered By: Trim Carpenter on 01-06-2012 TPO Ab Qn 8 [IU]/mL Normal 0-34 [facility] Work Phone: T3, FREE (TRIDOTHYRONINE) ([phone])Ordered By: Trim Carpenter on 01-06-2012 Free T3 [Mass/Vol] 3.0 pg/mL Normal 2.0-4.4 [facility] Internal Medicine; [facility] Internal Medicine Work Phone: T4, FREE (THYROXINE) ([id number]) Ordered By: Trim Carpenter on 01-06-2012 Free T4 [Mass/Vol] 1.08 ng/dL Normal 0.82-1.77 [facility] Internal Medicine; [facility] Internal Medicine Work Phone: TSH ([id number])Ordered By: Holli m Hogshead Stock Clerk on 01-06-2012 TSH Qn 5.160 {uIU/mL} Abnormal 0.450-4.50 0 [facility]; [facility] Work Phone: CBC WITH MANUAL DIFF ([id number]) Ordered By: Trim Carpenter on 11-24-2011 Basophils (Bld) [#/Vol] 0.0 10*3/uL Normal 0.0-0.2 [facility]; [facility] Work Phone: Basophils/100 WBC (Bld) 1 % Normal 0-3 [facility]; [facility] Work Phone: Eosinophils (Bld) [#/Vol] 0.2 10*3/uL Normal 0.0-0.4 [facility]; [facility] Work Phone: Eosinophils/100 WBC (Bld) 3 % Normal 0-7 [facility]; [facility] Work Phone: Erythrocyte distribution width (RBC) [Ratio] 13.3 % Normal 12.3-15.4 [facility]; [facility] Work Phone: Hematocrit (Bld) [Volume fraction] 41.7 % Normal 37.5-51.0 [facility]; [facility] Work Phone: Hemoglobin (Bld) [Mass/Vol] 14.5 g/dL Normal 12.6-17.7 [facility]; [facility] Work Phone: Immature granulocytes (Bld) [#/Vol] 0.0 10*3/uL Normal 0.0-0.1 [facility]; [facility] Work Phone: Immature granulocytes/100 WBC (Bld) 0 % Normal 0-2 [facility]; [facility] Work Phone: Lymphocytes (Bld) [#/Vol] 1.3 10*3/uL Normal 0.7-4.5 [facility]; [facility] Work Phone: Lymphocytes/100 WBC (Bld) 24 % Normal 14-46 [facility]; [facility] Work Phone: MCH (RBC) [Entitic mass] 30.1 pg Normal 26.6-33.0 [facility]; [facility] Work Phone: MCHC (RBC) [Mass/Vol] 34.8 g/dL Normal 31.5-35.7 [facility]; [facility] Work Phone: MCV (RBC) [Entitic vol] 87 fL Normal 79-97 [facility]; [facility] Work Phone: Monocytes (Bld) [#/Vol] 0.4 10*3/uL Normal 0.1-1.0 [facility]; [facility] Work Phone: Monocytes/100 WBC (Bld) 7 % Normal 4-13 [facility]; [facility] Work Phone: Neutrophils (Bld) [#/Vol] 3.6 10*3/uL Normal 1.8-7.8 [facility]; [facility] Work Phone: Neutrophils/100 WBC (Bld) 65 % Normal 40-74 [facility]; [facility] Work Phone: Platelets (Bld) [#/Vol] 240 10*3/uL Normal 140-415 [facility]; [facility] Work Phone: RBC (Bld) [#/Vol] 4.81 10*6/uL Normal 4.14-5.80 [facility]; [facility] Work Phone: WBC (Bld) [#/Vol] 5.5 10*3/uL Normal 4.0-10.5 [facility]; [facility] Work Phone: FREE TRIDOTHYRONINE (T3) ([phone])Ordered By: Trim Carpenter on 11-24-2011 Free T3 [Mass/Vol] 2.7 pg/mL Normal 2.0-4.4 [facility]; [facility] Work Phone: LIPID PANEL ([id number])Ordered B y: Trim Carpenter on 11-24-2011 Cholesterol [Mass/Vol] 228 mg/dL Abnormal 100-[address] [facility]; [facility] Work Phone: Cholesterol in HDL [Mass/Vol] 36 mg/dL Abnormal [facility]; [facility] Work Phone: Cholesterol in LDL [Mass/Vol] 116 mg/dL Abnormal 0-99 [facility]; [facility] Work Phone: Cholesterol in LDL/Cholesterol in HDL [Mass ratio] 3.2 {ratio_units} Normal 0.0-3.6 [facility]; [facility] Work Phone: Cholesterol in VLDL [Mass/Vol] 76 mg/dL Abnormal 5-40 [facility]; [facility] Work Phone: Triglyceride [Mass/Vol] 378 mg/dL Abnormal 0-149 [facility]; [facility] Work Phone: METABOLIC PANEL, COMPREHENSI VE ([phone])Ordered By: Trim Carpenter on 11-24-2011 Albumin [Mass/Vol] 4.1 g/dL Normal 3.6-4.8 [facility]; [facility] Medicine Work Phone: Albumin/Globulin [Mass ratio] 1.6 {ratio} Normal 1.1-2.5 [facility]; [facility] Work Phone: ALP [Catalytic activity/Vol] 78 U/L Normal 25-160 [facility]; [facility] Work Phone: ALT [Catalytic activity/Vol] 51 U/L Normal 0-55 [facility]; [facility] Work Phone: AST [Catalytic activity/Vol] 31 U/L Normal 0-40 [facility]; [facility] Work Phone: Bilirubin [Mass/Vol] 1.3 mg/dL Abnormal 0.0-1.2 [facility] Internal [facility]; [facility] Work Phone: Calcium [Mass/Vol] 8.7 mg/dL Normal 8.6-10.2 [facility]; [facility] Work Phone: Chloride [Moles/Vol] 105 mmol/L Normal 97-108 [facility]; [facility] Work Phone: CO2 [Moles/Vol] 22 mmol/L Normal 20-32 [facility]; [facility] Work Phone: Creatinine [Mass/Vol] 1.05 mg/dL Normal 0.76-1.27 [facility]; [facility] Work Phone: GFR/1.73 sq M.predicted among blacks CKD-EPI (S/P/Bld) [Vol rate/Area] 83 mL/min/1.73 Normal [facility]; [facility] Work Phone: GFR/1.73 sq M.predicted among non-blacks CKD-EPI (S/P/Bld) [Vol rate/Area] 72 mL/min/1.73 Normal [facility]; [facility] Work Phone: Globulin (S) [Mass/Vol] 2.6 g/dL Normal 1.5-4.5 [facility]; [facility] Work Phone: Glucose [Mass/Vol] 92 mg/dL Normal 65-99 [facility]; [facility] Work Phone: Potassium [Moles/Vol] 3.6 mmol/L Normal 3.5-5.2 [facility]; [facility] Work Phone: Protein [Mass/Vol] 6.7 g/dL Normal 6.0-8.5 [facility]; [facility] Work Phone: Sodium [Moles/Vol] 141 mmol/L Normal 134-144 [facility]; [facility] Work Phone: Urea nitrogen [Mass/Vol] 13 mg/dL Normal 8-27 [facility]; [facility] Work Phone: Urea nitrogen/Creatinine [Mass ratio] 12 mg/mg Normal 10-22 [facility]; [facility] Work Phone: MICROSOMAL ANTIBODY ([id number])O rdered By: Trim Carpenter on 11-24-2011 TPO Ab Qn 10 [IU]/mL Normal 0-34 [facility]; [facility] Work Phone: THYROXINE FREE ([phone])Ordere d By: Trim Carpenter on 11-24-2011 Free T4 [Mass/Vol] 0.98 ng/dL Normal 0.82-1.77 [facility]pre [facility]; [facility] Work Phone: TSH (THYROID STIMULATING HOR TIFFANY) ([id number])Ordered By: Trim Carpenter on 11-24-2011 TSH Qn 4.700 {uIU/mL} Abnormal 0.450-4.50 0 [facility]; [facility] Work Phone: KHANH (ANTINUCLEAR ANTIBODY) ( [id number])Ordered By: Trim Carpenter on 09-29-2011 Nuclear Ab Ql (S) Negative Normal Compre[facility] ensive [facility]; [facility] Work Phone: C-REACTIVE PROTEIN ([phone])Or dered By: Trim Carpenter on 09-29-2011 CRP [Mass/Vol] 1.2 mg/L Normal 0.0-4.9 [facility]; [facility] Work Phone: Potassium Serum ([id number])Order ed By: Trim Carpenter on 09-29-2011 Potassium [Moles/Vol] 3.8 mmol/L Normal 3.5-5.2 [facility]; [facility] Work Phone: RHEUMATOID FACTOR-QUANT ([phone])Ordered By: Trim Carpenter on 09-29-2011 Rheumatoid factor Qn 7.2 [IU]/mL Normal 0.0-13.9 [facility]; [facility] Work Phone: SED RATE ERYTHROCYTE ([id number]) Ordered By: Trim Carpenter on 09-29-2011 ESR (Bld) [Velocity] 9 mm/h Normal 0-30 Comp rehensive [facility]; [facility] Work Phone: TSH ([phone])Ordered By: Holli m Hogshead Stock Clerk on 09-29-2011 TSH Qn 6.580 {uIU/mL} Abnormal 0.450-4.50 0 [facility]; [facility] Work Phone: Vitamin D Hydroxy ([id number])Ord ered By: Trim Carpenter on 09-29-2011 25-hydroxyvitamin D [Mass/Vol] 35.2 ng/mL Normal 30.0-100.0 [facility]; [facility] Work Phone: CBC WITH MANUAL DIFF ([id number]) Ordered By: Trim Carpenter on 05-09-2011 Basophils (Bld) [#/Vol] 0.0 10*3/uL Normal 0.0-0.2 [facility]; [facility] Work Phone: Basophils/100 WBC (Bld) 1 % Normal 0-3 [facility]; [facility] Work Phone: Eosinophils (Bld) [#/Vol] 0.1 10*3/uL Normal 0.0-0.4 [facility]; [facility] Work Phone: Eosinophils/100 WBC (Bld) 2 % Normal 0-7 [facility]; [facility] Work Phone: Erythrocyte distribution width (RBC) [Ratio] 12.9 % Normal 11.7-15.0 [facility]; [facility] Work Phone: Hematocrit (Bld) [Volume fraction] 42.5 % Normal 36.0-50.0 [facility]; [facility] Work Phone: Hemoglobin (Bld) [Mass/Vol] 14.2 g/dL Normal 12.5-17.0 [facility]; [facility] Work Phone: Immature granulocytes (Bld) [#/Vol] 0.0 10*3/uL Normal 0.0-0.1 [facility]; [facility] Work Phone: Immature granulocytes/100 WBC (Bld) 0 % Normal 0-2 [facility]; [facility] Work Phone: Lymphocytes (Bld) [#/Vol] 2.0 10*3/uL Normal 0.7-4.5 [facility]; [facility] Work Phone: Lymphocytes/100 WBC (Bld) 31 % Normal 14-46 [facility]; [facility] Work Phone: MCH (RBC) [Entitic mass] 30.1 pg Normal 27.0-34.0 [facility]; [facility] Work Phone: MCHC (RBC) [Mass/Vol] 33.4 g/dL Normal 32.0-36.0 [facility] prehensive Internal Medicine; [facility] Work Phone: MCV (RBC) [Entitic vol] 90 fL Normal 80-98 [facility]; [facility] Work Phone: Monocytes (Bld) [#/Vol] 0.5 10*3/uL Normal 0.1-1.0 [facility]; [facility] Work Phone: Monocytes/100 WBC (Bld) 8 % Normal 4-13 [facility]; [facility] Work Phone: Neutrophils (Bld) [#/Vol] 3.6 10*3/uL Normal 1.8-7.8 [facility]; [facility] Work Phone: Neutrophils/100 WBC (Bld) 58 % Normal 40-74 [facility]; [facility] Work Phone: Platelets (Bld) [#/Vol] 238 10*3/uL Normal 140-415 [facility]; [facility] Work Phone: RBC (Bld) [#/Vol] 4.71 10*6/uL Normal 4.10-5.60 [facility] ehensive Internal Medicine; [facility] Work Phone: WBC (Bld) [#/Vol] 6.3 10*3/uL Normal 4.0-10.5 [facility]; [facility] Work Phone: LIPID PANEL ([id number])Ordered B y: Trim Carpenter on 05-09-2011 Cholesterol [Mass/Vol] 247 mg/dL Abnormal 100-199 [facility]; [facility] Work Phone: Cholesterol in HDL [Mass/Vol] 36 mg/dL Abnormal [facility]; [facility] Work Phone: Cholesterol in LDL [Mass/Vol] 162 mg/dL Abnormal 0-99 [facility]; [facility] Work Phone: Cholesterol in LDL/Cholesterol in HDL [Mass ratio] 4.5 {ratio_units} Abnormal 0.0-3.6 [facility]; [facility] Work Phone: Cholesterol in VLDL [Mass/Vol] 49 mg/dL Abnormal 5-40 [facility]; [facility] Work Phone: Triglyceride [Mass/Vol] 246 mg/dL Abnormal 0-149 [facility]; [facility] Work Phone: METABOLIC PANEL, COMPREHENSI VE ([phone])Ordered By: Trim Carpenter on 05-09-2011 Albumin [Mass/Vol] 4.2 g/dL Normal 3.6-4.8 [facility]; [facility] Work Phone: Albumin/Globulin [Mass ratio] 1.6 {ratio} Normal 1.1-2.5 [facility]; [facility] Work Phone: ALP [Catalytic activity/Vol] 67 U/L Normal 25-160 [facility]; [facility] Work Phone: ALT [Catalytic activity/Vol] 17 U/L Normal 0-55 [facility]; [facility] Work Phone: AST [Catalytic activity/Vol] 16 U/L Normal 0-40 [facility]; [facility] Work Phone: Bilirubin [Mass/Vol] 0.9 mg/dL Normal 0.0-1.2 [facility] rehensive Internal Medicine; [facility] Work Phone: Calcium [Mass/Vol] 9.2 mg/dL Normal 8.6-10.2 [facility]; [facility] Work Phone: Chloride [Moles/Vol] 103 mmol/L Normal 97-108 Comp rehensive [facility]; [facility] Work Phone: CO2 [Moles/Vol] 27 mmol/L Normal 20-32 [facility]; [facility] Work Phone: Creatinine [Mass/Vol] 1.20 mg/dL Normal 0.76-1.27 [facility] prehensive Internal Medicine; [facility] Work Phone: GFR/1.73 sq M.predicted among blacks MDRD (S/P/Bld) [Vol rate/Area] 71 mL/min/{1.73_m2} Normal Comprehens[facility] e [facility]; [facility] Work Phone: GFR/1.73 sq M.predicted among non-blacks CKD-EPI (S/P/Bld) [Vol rate/Area] 62 mL/min/1.73 Normal [facility]; [facility] Work Phone: Globulin (S) [Mass/Vol] 2.6 g/dL Normal 1.5-4.5 [facility]; [facility] Work Phone: Glucose [Mass/Vol] 88 mg/dL Normal 65-99 [facility]; [facility] Work Phone: Potassium [Moles/Vol] 3.7 mmol/L Normal 3.5-5.2 [facility] prehensive Internal Medicine; [facility] Work Phone: Protein [Mass/Vol] 6.8 g/dL Normal 6.0-8.5 [facility]; [facility] Work Phone: Sodium [Moles/Vol] 143 mmol/L Normal 135-145 [facility]; [facility] Work Phone: Urea nitrogen [Mass/Vol] 19 mg/dL Normal 8-27 [facility]; [facility] Work Phone: Urea nitrogen/Creatinine [Mass ratio] 16 mg/mg Normal 10-22 [facility]; [facility] Work Phone: Vitamin D Hydroxy ([phone])Ord ered By: Trim Carpenter on 05-09-2011 25-hydroxyvitamin D [Mass/Vol] 34.6 ng/mL Normal 30.0-100.0 [facility]; [facility] Work Phone: HEPATIC FUNCTION PANEL ([phone])Ordered By: Trim Carpenter on 01-07-2011 Bilirubin.direct [Mass/Vol] 0.22 mg/dL Normal 0.00-0.40 [facility]; [facility] Work Phone: LIPID PANEL ([id number])Ordered B y: Trim Carpenter on 01-07-2011 Cholesterol [Mass/Vol] 234 mg/dL Abnormal 100-199 [facility]; [facility] Work Phone: Cholesterol in HDL [Mass/Vol] 38 mg/dL Abnormal [facility]; [facility] Work Phone: Cholesterol in LDL [Mass/Vol] 168 mg/dL Abnormal 0-99 [facility]; [facility] Work Phone: Cholesterol in LDL/Cholesterol in HDL [Mass ratio] 4.4 {ratio_units} Abnormal 0.0-3.6 [facility]; [facility] Work Phone: Cholesterol in VLDL [Mass/Vol] 28 mg/dL Normal 5-40 [facility]; [facility] Work Phone: Triglyceride [Mass/Vol] 141 mg/dL Normal 0-149 [facility]; [facility] Work Phone: METABOLIC PANEL, COMPREHENSI VE ([phone])Ordered By: Trim Carpenter on 01-07-2011 Albumin [Mass/Vol] 4.1 g/dL Normal 3.6-4.8 [facility]; [facility] Work Phone: Albumin/Globulin [Mass ratio] 1.6 {ratio} Normal 1.1-2.5 [facility]; [facility] Work Phone: ALP [Catalytic activity/Vol] 67 U/L Normal 25-160 [facility]; [facility] Work Phone: ALT [Catalytic activity/Vol] 17 U/L Normal 0-55 [facility]; [facility] Work Phone: AST [Catalytic activity/Vol] 20 U/L Normal 0-40 [facility]; [facility] Work Phone: Bilirubin [Mass/Vol] 1.1 mg/dL Normal 0.0-1.2 [facility]; [facility] Work Phone: Calcium [Mass/Vol] 8.8 mg/dL Normal 8.6-10.2 [facility]; [facility] Work Phone: Chloride [Moles/Vol] 104 mmol/L Normal 97-108 [facility]; [facility] Work Phone: CO2 [Moles/Vol] 24 mmol/L Normal 20-32 [facility]; [facility] Work Phone: Creatinine [Mass/Vol] 1.14 mg/dL Normal 0.76-1.27 [facility]; [facility] Work Phone: GFR/1.73 sq M.predicted among blacks MDRD (S/P/Bld) [Vol rate/Area] 76 mL/min/{1.73_m2} Normal [facility]; [facility] Work Phone: GFR/1.73 sq M.predicted among non-blacks CKD-EPI (S/P/Bld) [Vol rate/Area] 66 mL/min/1.73 Normal [facility]; [facility] Work Phone: Globulin (S) [Mass/Vol] 2.6 g/dL Normal 1.5-4.5 [facility]; [facility] Work Phone: Glucose [Mass/Vol] 93 mg/dL Normal 65-99 [facility]; [facility] Work Phone: Potassium [Moles/Vol] 3.9 mmol/L Normal 3.5-5.2 [facility]; [facility] Work Phone: Protein [Mass/Vol] 6.7 g/dL Normal 6.0-8.5 [facility] Internal Medicine; [facility] Work Phone: Sodium [Moles/Vol] 141 mmol/L Normal 135-145 [facility]; [facility] Work Phone: Urea nitrogen [Mass/Vol] 25 mg/dL Normal 8-27 [facility]; [facility] Work Phone: Urea nitrogen/Creatinine [Mass ratio] 22 mg/mg Normal 10-22 [facility]; [facility] Work Phone: Vitamin D Hydroxy ([id number])Ord ered By: Trim Carpenter on 01-07-2011 1,25-dihydroxyvitamin D3 [Mass/Vol] 30.3 ng/mL Abnormal 32.0-100.0 [facility]; [facility] Work Phone: PAYTON CULTURE-OTHER ([id number])Ord ered By: Trim Carpenter on 08-28-2010 Bacteria identified Respiratory culture Nom (Unsp spec) Final report Normal [facility]; [facility] Work Phone: Bacteria identified Respiratory culture Nom (Unsp spec) RRF Normal [facility]; [facility] Work Phone: Rapid Strep Test, Office ([phone])Ordered By: Josi Holloway on 08-28-2010 S. pyogenes Ag EIA Ql (Throat) Negative Normal [facility]; [facility] Work Phone: LIPID PANEL ([id number])Ordered B y: Trim Carpenter on 07-09-2010 Cholesterol [Mass/Vol] 263 mg/dL Abnormal 100-199 [facility]; [facility] Work Phone: Cholesterol in HDL [Mass/Vol] 39 mg/dL Abnormal [facility]; [facility] Work Phone: Cholesterol in LDL [Mass/Vol] 181 mg/dL Abnormal 0-99 [facility]; [facility] Work Phone: Cholesterol in LDL/Cholesterol in HDL [Mass ratio] 4.6 {ratio_units} Abnormal 0.0-3.6 [facility]; [facility] Work Phone: Cholesterol in VLDL [Mass/Vol] 43 mg/dL Abnormal 5-40 [facility]; [facility] Work Phone: Triglyceride [Mass/Vol] 213 mg/dL Abnormal 0-149 [facility]; [facility] Work Phone: METABOLIC PANEL, COMPREHENSI VE ([id number])Ordered By: Trim Carpenter on 07-09-2010 Albumin [Mass/Vol] 4.3 g/dL Normal 3.6-4.8 [facility]pre [facility]; [facility] Work Phone: Albumin/Globulin [Mass ratio] 1.6 {ratio} Normal 1.1-2.5 [facility] Medicine; [facility] Work Phone: ALP [Catalytic activity/Vol] 70 U/L Normal 25-160 [facility] Internal Medicine; [facility] Work Phone: ALT [Catalytic activity/Vol] 13 U/L Normal 0-55 [facility] Medicine; [facility] Work Phone: AST [Catalytic activity/Vol] 13 U/L Normal 0-40 [facility] Medicine; [facility] Work Phone: Bilirubin [Mass/Vol] 0.9 mg/dL Normal 0.0-1.2 [facility] rehensive Internal Medicine; [facility] Work Phone: Calcium [Mass/Vol] 9.1 mg/dL Normal 8.6-10.2 [facility] Internal [facility]; [facility] Work Phone: Chloride [Moles/Vol] 104 mmol/L Normal 97-108 [facility] rehensive [facility]; [facility] Work Phone: CO2 [Moles/Vol] 24 mmol/L Normal 20-32 [facility] Internal Medicine; [facility] Work Phone: Creatinine [Mass/Vol] 1.11 mg/dL Normal 0.76-1.27 [facility]; [facility] Medicine Work Phone: GFR/1.73 sq M.predicted among blacks MDRD (S/P/Bld) [Vol rate/Area] mL/min/{1.73_m2} Normal [facility] Internal Medicine; [facility] Work Phone: GFR/1.73 sq M.predicted MDRD (S/P/Bld) [Vol rate/Area] mL/min/{1.73_m2} Normal [facility] Internal Medicine; [facility] Medicine Work Phone: Globulin (S) [Mass/Vol] 2.7 g/dL Normal 1.5-4.5 [facility]; [facility] Medicine Work Phone: Glucose [Mass/Vol] 93 mg/dL Normal 65-99 [facility] Medicine; [facility] Work Phone: Potassium [Moles/Vol] 3.7 mmol/L Normal 3.5-5.2 [facility] Internal Medicine; [facility] Work Phone: Protein [Mass/Vol] 7.0 g/dL Normal 6.0-8.5 [facility] Medicine; [facility] Work Phone: Sodium [Moles/Vol] 143 mmol/L Normal 135-145 [facility] Medicine; [facility] Work Phone: Urea nitrogen [Mass/Vol] 21 mg/dL Normal 8-27 [facility]; [facility] Work Phone: Urea nitrogen/Creatinine [Mass ratio] 19 mg/mg Normal 10-22 [facility]; [facility] Work Phone: PSA (PROSTATE SPECIFIC ANTIG EN) (V76.44)Ordered By: Trim Carpenter on 07-09-2010 Prostate specific Ag [Mass/Vol] 0.8 ng/mL Normal 0.0-4.0 [facility]; [facility] Work Phone: Vitamin D Hydroxy ([id number])Ord ered By: Trim Carpenter on 07-09-2010 1,25-dihydroxyvitamin D3 [Mass/Vol] 20.2 ng/mL Abnormal 32.0-100.0 [facility]; [facility] Work Phone: LIPID PANEL ([id number])Ordered B y: Trim Carpenter on 11-14-2009 Cholesterol [Mass/Vol] 201 mg/dL Abnormal 100-199 [facility] Internal Medicine; [facility] Work Phone: Cholesterol in HDL [Mass/Vol] 37 mg/dL Abnormal [facility]; [facility] Work Phone: Cholesterol in LDL [Mass/Vol] 125 mg/dL Abnormal 0-99 [facility]; [facility] Work Phone: Cholesterol in LDL/Cholesterol in HDL [Mass ratio] 3.4 {ratio_units} Normal 0.0-3.6 [facility]; [facility] Work Phone: Cholesterol in VLDL [Mass/Vol] 39 mg/dL Normal 5-40 [facility]; [facility] Work Phone: Triglyceride [Mass/Vol] 194 mg/dL Abnormal 0-149 [facility] Internal Medicine; [facility] Medicine Work Phone: METABOLIC PANEL, COMPREHENSI VE ([id number])Ordered By: Trim Carpenter on 11-14-2009 Albumin [Mass/Vol] 4.1 g/dL Normal 3.6-4.8 [facility] Internal Medicine; [facility] Medicine Work Phone: Albumin/Globulin [Mass ratio] 1.5 {ratio} Normal 1.1-2.5 [facility] Internal Medicine; [facility] Work Phone: ALP [Catalytic activity/Vol] 71 U/L Normal 25-160 [facility] Internal Medicine; [facility] Medicine Work Phone: ALT [Catalytic activity/Vol] 14 U/L Normal 0-55 [facility]; [facility] Work Phone: AST [Catalytic activity/Vol] 12 U/L Normal 0-40 [facility]; [facility] Work Phone: Bilirubin [Mass/Vol] 1.3 mg/dL Abnormal 0.0-1.2 [facility]; [facility] Work Phone: Calcium [Mass/Vol] 8.8 mg/dL Normal 8.6-10.2 [facility] Internal Medicine; [facility] Medicine Work Phone: Chloride [Moles/Vol] 104 mmol/L Normal 97-108 [facility]; [facility] Work Phone: CO2 [Moles/Vol] 24 mmol/L Normal 20-32 [facility] Internal [facility]; [facility] Work Phone: Creatinine [Mass/Vol] 1.23 mg/dL Normal 0.76-1.27 [facility] Internal Medicine; [facility] Medicine Work Phone: GFR/1.73 sq M.predicted among blacks MDRD (S/P/Bld) [Vol rate/Area] mL/min/{1.73_m2} Normal [facility]; [facility] Work Phone: GFR/1.73 sq M.predicted MDRD (S/P/Bld) [Vol rate/Area] 59 mL/min/{1.73_m2} Abnormal [facility]; [facility] Work Phone: Globulin (S) [Mass/Vol] 2.8 g/dL Normal 1.5-4.5 [facility]; [facility] Work Phone: Glucose [Mass/Vol] 97 mg/dL Normal 65-99 [facility]; [facility] Work Phone: Potassium [Moles/Vol] 3.4 mmol/L Abnormal 3.5-5.2 Com [facility]; [facility] Work Phone: Protein [Mass/Vol] 6.9 g/dL Normal 6.0-8.5 [facility]; [facility] Work Phone: Sodium [Moles/Vol] 142 mmol/L Normal 135-145 [facility] Internal Medicine; [facility] Work Phone: Urea nitrogen [Mass/Vol] 21 mg/dL Normal 5-26 [facility]; [facility] Work Phone: Urea nitrogen/Creatinine [Mass ratio] 17 mg/mg Normal 8-27 [facility]; [facility] Work Phone: URINE PAYTON CULTURE-MELVIN COL C OUNT ([id number])Ordered By: Sherron Mercer on 05-22-2009 Bacteria identified Cx Nom (U) Final report Normal [facility]; [facility] Work Phone: Bacteria identified Cx Nom (U) NG36 Normal [facility]; [facility] Work Phone: Urinalysis, Office ([id number])Or dered By: Kanika Martinez on 05-22-2009 Bilirubin Ql (U) Negative Normal Compre[facility] ive [facility]; [facility] Work Phone: Glucose Test strip (U) [Mass/Vol] Negative Normal [facility]; [facility] Work Phone: Hemoglobin Ql (U) Hemolyzed Small Normal [facility]; [facility] Work Phone: Ketones Ql (U) Negative Normal [facility]; [facility] Work Phone: Leukocyte esterase Test strip Ql (U) Negative Normal [facility]; [facility] Work Phone: Nitrite Ql (U) Negative Normal [facility]; [facility] Work Phone: pH (U) 6.0 [pH] Normal [facility]; [facility] Work Phone: Protein Ql (U) Trace Normal [facility]; [facility] Work Phone: Specific gravity (U) [Rel density] 1.025 1 Normal [facility]; [facility] Work Phone: Urobilinogen (24H U) [Mass/Time] Normal Normal [facility]; [facility] Work Phone: CBC WITH MANUAL DIFF ([id number]) Ordered By: Sherron Mercer on 05-14-2009 Basophils (Bld) [#/Vol] 0.1 10*3/uL Normal 0.0-0.2 [facility]; [facility] Work Phone: Basophils/100 WBC (Bld) 1 % Normal 0-3 [facility]; [facility] Work Phone: Eosinophils (Bld) [#/Vol] 0.2 10*3/uL Normal 0.0-0.4 [facility]; [facility] Work Phone: Eosinophils/100 WBC (Bld) 3 % Normal 0-7 [facility]; [facility] Work Phone: Erythrocyte distribution width (RBC) [Ratio] 12.9 % Normal 11.7-15.0 [facility]; [facility] Work Phone: Hematocrit (Bld) [Volume fraction] 43.3 % Normal 36.0-50.0 [facility]; [facility] Work Phone: Hemoglobin (Bld) [Mass/Vol] 14.8 g/dL Normal 12.5-17.0 [facility]; [facility] Work Phone: Lymphocytes (Bld) [#/Vol] 1.7 10*3/uL Normal 0.7-4.5 [facility]; [facility] Work Phone: Lymphocytes/100 WBC (Bld) 30 % Normal 14-46 [facility]; [facility] Work Phone: MCH (RBC) [Entitic mass] 30.6 pg Normal 27.0-34.0 [facility]; [facility] Work Phone: MCHC (RBC) [Mass/Vol] 34.2 g/dL Normal 32.0-36.0 [facility] prehensive Internal Medicine; [facility] Work Phone: MCV (RBC) [Entitic vol] 90 fL Normal 80-98 [facility]; [facility] Work Phone: Monocytes (Bld) [#/Vol] 0.5 10*3/uL Normal 0.1-1.0 [facility]; [facility] Work Phone: Monocytes/100 WBC (Bld) 9 % Normal 4-13 [facility]; [facility] Work Phone: Neutrophils (Bld) [#/Vol] 3.2 10*3/uL Normal 1.8-7.8 [facility]; [facility] Work Phone: Neutrophils/100 WBC (Bld) 57 % Normal 40-74 [facility]; [facility] Work Phone: Platelets (Bld) [#/Vol] 251 10*3/uL Normal 140-415 [facility]; [facility] Work Phone: RBC (Bld) [#/Vol] 4.83 10*6/uL Normal 4.10-5.60 [facility] ehensive Internal Medicine; [facility] Work Phone: WBC (Bld) [#/Vol] 5.7 10*3/uL Normal 4.0-10.5 [facility]; [facility] Work Phone: HEPATIC FUNCTION PANEL ([id number])Ordered By: on 05-14-2009 Bilirubin.direct [Mass/Vol] 0.25 mg/dL Normal 0.00-0.40 [facility]; [facility] Work Phone: LIPID PANEL ([id number])Ordered B y: on 05-14-2009 Cholesterol [Mass/Vol] 221 mg/dL Abnormal 100-199 [facility]; [facility] Work Phone: Cholesterol in HDL [Mass/Vol] 38 mg/dL Abnormal [facility]; [facility] Work Phone: Cholesterol in LDL [Mass/Vol] 144 mg/dL Abnormal 0-99 [facility]; [facility] Work Phone: Cholesterol in LDL/Cholesterol in HDL [Mass ratio] 3.8 {ratio_units} Abnormal 0.0-3.6 [facility]; [facility] Work Phone: Cholesterol in VLDL [Mass/Vol] 39 mg/dL Normal 5-40 [facility]; [facility] Work Phone: Triglyceride [Mass/Vol] 195 mg/dL Abnormal 0-149 [facility]; [facility] Work Phone: METABOLIC PANEL, COMPREHENSI VE ([id number])Ordered By: on 05-14-2009 Albumin [Mass/Vol] 4.2 g/dL Normal 3.6-4.8 [facility]; [facility] Work Phone: Albumin/Globulin [Mass ratio] 1.4 {ratio} Normal 1.1-2.5 [facility]; [facility] Work Phone: ALP [Catalytic activity/Vol] 69 U/L Normal 25-160 [facility]; [facility] Work Phone: ALT [Catalytic activity/Vol] 15 U/L Normal 0-55 [facility]; [facility] Work Phone: AST [Catalytic activity/Vol] 15 U/L Normal 0-40 [facility]; [facility] Work Phone: Bilirubin [Mass/Vol] 1.3 mg/dL Abnormal 0.1-1.2 [facility]; [facility] Work Phone: Calcium [Mass/Vol] 9.4 mg/dL Normal 8.5-10.6 [facility] Internal Medicine; [facility] Medicine Work Phone: Chloride [Moles/Vol] 102 mmol/L Normal 97-108 [facility]; [facility] Work Phone: CO2 [Moles/Vol] 26 mmol/L Normal 20-32 [facility] Internal Medicine; [facility] Medicine Work Phone: Creatinine [Mass/Vol] 1.15 mg/dL Normal 0.76-1.27 [facility] Internal Medicine; [facility] Medicine Work Phone: GFR/1.73 sq M.predicted among blacks MDRD (S/P/Bld) [Vol rate/Area] mL/min/{1.73_m2} Normal [facility]; [facility] Work Phone: GFR/1.73 sq M.predicted MDRD (S/P/Bld) [Vol rate/Area] mL/min/{1.73_m2} Normal [facility] Internal Medicine; [facility] Work Phone: Globulin (S) [Mass/Vol] 3.0 g/dL Normal 1.5-4.5 [facility]; [facility] Work Phone: Glucose [Mass/Vol] 84 mg/dL Normal 65-99 [facility] Internal Medicine; [facility] Medicine Work Phone: Potassium [Moles/Vol] 3.5 mmol/L Normal 3.5-5.2 [facility] Internal Medicine; [facility] Work Phone: Protein [Mass/Vol] 7.2 g/dL Normal 6.0-8.5 [facility] Internal Medicine; [facility] Medicine Work Phone: Sodium [Moles/Vol] 143 mmol/L Normal 135-145 Compre hensive [facility]; [facility] Work Phone: Urea nitrogen [Mass/Vol] 15 mg/dL Normal 5-26 [facility]; [facility] Work Phone: Urea nitrogen/Creatinine [Mass ratio] 13 mg/mg Normal 8-27 [facility]; [facility] Work Phone: URINALYSIS W/O MICRO ([id number]) Ordered By: Sherron Mercer on 05-14-2009 Appearance (U) Clear Normal [facility]; [facility] Work Phone: Bilirubin Ql (U) Negative Normal Comprehe nsive [facility]; [facility] Work Phone: Color (U) Yellow Normal [facility]; [facility] Work Phone: Glucose Ql (U) Negative Normal [facility]; [facility] Work Phone: Hemoglobin Ql (U) Negative Normal Compreh ensive [facility]; [facility] Work Phone: Ketones Ql (U) Trace Abnormal [facility]; [facility] Work Phone: Leukocyte esterase Test strip Ql (U) Trace Abnormal [facility]; [facility] Work Phone: Microscopic observation LM Nom (Urine sed) See below: Normal [facility]; [facility] Work Phone: Nitrite Ql (U) Negative Normal [facility]; [facility] Work Phone: pH (U) 6.5 [pH] Normal 5.0-7.5 [facility]; [facility] Work Phone: Protein Ql (U) 1+ Abnormal [facility]; [facility] Work Phone: Specific gravity (U) [Rel density] 1.026 1 Normal 1.005-1.03 0 [facility]; [facility] Work Phone: Urobilinogen (U) [Mass/Vol] 0.2 mg/dL Normal 0.0-1.9 [facility]; [facility] Work Phone: CBC WITH MANUAL DIFF ([id number]) Ordered By: Sherron Mercer on 11-03-2008 Basophils (Bld) [#/Vol] 0.1 10*3/uL Normal 0.0-0.2 [facility]; [facility] Work Phone: Basophils/100 WBC (Bld) 1 % Normal 0-3 [facility]; [facility] Work Phone: Eosinophils (Bld) [#/Vol] 0.2 10*3/uL Normal 0.0-0.4 [facility]; [facility] Work Phone: Eosinophils/100 WBC (Bld) 3 % Normal 0-7 [facility]; [facility] Work Phone: Erythrocyte distribution width (RBC) [Ratio] 13.2 % Normal 11.7-15.0 [facility]; [facility] Work Phone: Hematocrit (Bld) [Volume fraction] 43.8 % Normal 36.0-50.0 [facility]; [facility] Work Phone: Hemoglobin (Bld) [Mass/Vol] 15.3 g/dL Normal 12.5-17.0 [facility]; [facility] Work Phone: Lymphocytes (Bld) [#/Vol] 1.6 10*3/uL Normal 0.7-4.5 [facility]; [facility] Work Phone: Lymphocytes/100 WBC (Bld) 26 % Normal 14-46 [facility]; [facility] Work Phone: MCH (RBC) [Entitic mass] 31.6 pg Normal 27.0-34.0 [facility]; [facility] Work Phone: MCHC (RBC) [Mass/Vol] 34.9 g/dL Normal 32.0-36.0 [facility] prehensive Internal Medicine; [facility] Work Phone: MCV (RBC) [Entitic vol] 91 fL Normal 80-98 [facility]; [facility] Work Phone: Monocytes (Bld) [#/Vol] 0.6 10*3/uL Normal 0.1-1.0 [facility]; [facility] Work Phone: Monocytes/100 WBC (Bld) 9 % Normal 4-13 [facility]; [facility] Work Phone: Neutrophils (Bld) [#/Vol] 3.8 10*3/uL Normal 1.8-7.8 [facility]; [facility] Work Phone: Neutrophils/100 WBC (Bld) 61 % Normal 40-74 [facility]; [facility] Work Phone: Platelets (Bld) [#/Vol] 238 10*3/uL Normal 140-415 [facility]; [facility] Work Phone: RBC (Bld) [#/Vol] 4.84 10*6/uL Normal 4.10-5.60 Compr ehensive Internal Medicine; [facility] Work Phone: WBC (Bld) [#/Vol] 6.2 10*3/uL Normal 4.0-10.5 Compre hensive [facility]; [facility] Work Phone: HEPATIC FUNCTION PANEL ([id number] [id number])Ordered By: hSerron Mercer on 11-03-2008 Bilirubin.direct [Mass/Vol] 0.19 mg/dL Normal 0.00-0.40 [facility]; [facility] Work Phone: LIPID PANEL ([id number])Ordered B y: Sherron Fast on 11-03-2008 Cholesterol [Mass/Vol] 261 mg/dL Abnormal 100-199 [facility]; [facility] Work Phone: Cholesterol in HDL [Mass/Vol] 33 mg/dL Abnormal [facility]; [facility] Work Phone: Cholesterol in LDL [Mass/Vol] 161 mg/dL Abnormal 0-99 [facility]; [facility] Work Phone: Cholesterol in LDL/Cholesterol in HDL [Mass ratio] SPRCS Normal [facility]; [facility] Work Phone: Cholesterol in LDL/Cholesterol in HDL [Mass ratio] 4.9 {ratio_units} Abnormal 0.0-3.6 [facility]; [facility] Work Phone: Cholesterol in VLDL [Mass/Vol] 67 mg/dL Abnormal 5-40 [facility]; [facility] Work Phone: Triglyceride [Mass/Vol] 336 mg/dL Abnormal 0-149 [facility]; [facility] Work Phone: METABOLIC PANEL, COMPREHENSI VE ([id number])Ordered By: Sherron Mercer on 11-03-2008 Albumin [Mass/Vol] 4.3 g/dL Normal 3.6-4.8 [facility]; [facility] Work Phone: Albumin/Globulin [Mass ratio] 1.6 {ratio} Normal 1.1-2.5 [facility]; [facility] Work Phone: ALP [Catalytic activity/Vol] 68 U/L Normal 25-160 [facility]; [facility] Work Phone: ALT [Catalytic activity/Vol] 16 U/L Normal 0-55 [facility]; [facility] Work Phone: AST [Catalytic activity/Vol] 20 U/L Normal 0-40 [facility]; [facility] Work Phone: Bilirubin [Mass/Vol] 1.0 mg/dL Normal 0.1-1.2 [facility] rehensive Internal Medicine; [facility] Work Phone: Calcium [Mass/Vol] 9.3 mg/dL Normal 8.5-10.6 [facility]; [facility] Work Phone: Chloride [Moles/Vol] 101 mmol/L Normal 97-108 [facility]; [facility] Work Phone: CO2 [Moles/Vol] 28 mmol/L Normal 20-32 [facility] Internal Medicine; [facility] Medicine Work Phone: Creatinine [Mass/Vol] 1.10 mg/dL Normal 0.76-1.27 [facility] prehensive Internal Medicine; [facility] Work Phone: GFR/1.73 sq M.predicted among blacks MDRD (S/P/Bld) [Vol rate/Area] mL/min/{1.73_m2} Normal [facility]; [facility] Work Phone: GFR/1.73 sq M.predicted MDRD (S/P/Bld) [Vol rate/Area] mL/min/{1.73_m2} Normal [facility]; [facility] Work Phone: Globulin (S) [Mass/Vol] 2.7 g/dL Normal 1.5-4.5 [facility]; [facility] Work Phone: Glucose [Mass/Vol] 85 mg/dL Normal 65-99 [facility] Internal Medicine; [facility] Internal Medicine Work Phone: Potassium [Moles/Vol] 3.9 mmol/L Normal 3.5-5.2 [facility] prehensive Internal Medicine; [facility] Work Phone: Protein [Mass/Vol] 7.0 g/dL Normal 6.0-8.5 [facility] Internal Medicine; [facility] Work Phone: Sodium [Moles/Vol] 141 mmol/L Normal 135-145 [facility] Internal Medicine; [facility] Work Phone: Urea nitrogen [Mass/Vol] 17 mg/dL Normal 5-26 [facility] Internal Medicine; [facility] Work Phone: Urea nitrogen/Creatinine [Mass ratio] 15 mg/mg Normal 8-27 [facility] Internal Medicine; [facility] Work Phone: TSH ([id number])Ordered By: Sherron Fast on 11-03-2008 TSH Qn 4.082 {uIU/mL} Normal 0.450-4.50 0 [facility] Internal Medicine; [facility] Internal Medicine Work Phone: HEPATIC FUNCTION PANEL ([phone])Ordered By: Sherron Fast on 08-02-2008 Albumin [Mass/Vol] 4.7 g/dL Normal 3.6-4.8 [facility] Internal Medicine; [facility] Internal Medicine Work Phone: ALP [Catalytic activity/Vol] 65 U/L Normal 25-160 [facility]; [facility] Work Phone: ALT [Catalytic activity/Vol] 25 U/L Normal 0-55 [facility]; [facility] Work Phone: AST [Catalytic activity/Vol] 21 U/L Normal 0-40 [facility]; [facility] Work Phone: Bilirubin [Mass/Vol] 1.2 mg/dL Normal 0.1-1.2 Comp rehensive Internal Medicine; [facility] Work Phone: Bilirubin.direct [Mass/Vol] 0.22 mg/dL Normal 0.00-0.40 [facility] Internal Medicine; [facility] Work Phone: Protein [Mass/Vol] 7.4 g/dL Normal 6.0-8.5 [facility] Internal Medicine; [facility] Work Phone: LIPID PANEL ([id number])Ordered B y: Sherron Fast on 08-02-2008 Cholesterol [Mass/Vol] 241 mg/dL Abnormal 100-199 [facility]; [facility] Work Phone: Cholesterol in HDL [Mass/Vol] 41 mg/dL Normal [facility]; [facility] Work Phone: Cholesterol in LDL [Mass/Vol] 166 mg/dL Abnormal 0-99 [facility]; [facility] Work Phone: Cholesterol in LDL/Cholesterol in HDL [Mass ratio] SPRCS Normal [facility]; [facility] Work Phone: Cholesterol in LDL/Cholesterol in HDL [Mass ratio] 4.0 {ratio_units} Abnormal 0.0-3.6 [facility]; [facility] Work Phone: Cholesterol in VLDL [Mass/Vol] 34 mg/dL Normal 5-40 [facility]; [facility] Work Phone: Triglyceride [Mass/Vol] 169 mg/dL Abnormal 0-149 [facility]; [facility] Work Phone: PAYTON CULTURE-OTHER ([id number])Ord ered By: Pamela López on 07-05-2008 Bacteria identified Respiratory culture Nom (Unsp spec) Final report Normal [facility]; [facility] Work Phone: Bacteria identified Respiratory culture Nom (Unsp spec) RRF Normal [facility]; [facility] Work Phone: Rapid Flu ([phone])Ordered By: Pamela López on 07-05-2008 FLUAV Ag IA Ql (Throat) Negative Normal [facility]; [facility] Work Phone: Rapid Strep Test, Office ([phone])Ordered By: Pamela López on 07-05-2008 S. pyogenes Ag EIA Ql (Throat) Negative Normal [facility]; [facility] Work Phone: CBC WITH MANUAL DIFF ([id number]) Ordered By: Sherron Mercer on 04-17-2008 Basophils (Bld) [#/Vol] 0.0 10*3/uL Normal 0.0-0.2 [facility]; [facility] Work Phone: Basophils/100 WBC (Bld) 0 % Normal 0-3 [facility]; [facility] Work Phone: Eosinophils (Bld) [#/Vol] 0.1 10*3/uL Normal 0.0-0.4 [facility]; [facility] Work Phone: Eosinophils/100 WBC (Bld) 2 % Normal 0-7 [facility]; [facility] Work Phone: Erythrocyte distribution width (RBC) [Ratio] 13.4 % Normal 11.7-15.0 [facility]; [facility] Work Phone: Hematocrit (Bld) [Volume fraction] 45.5 % Normal 36.0-50.0 [facility]; [facility] Work Phone: Hemoglobin (Bld) [Mass/Vol] 15.4 g/dL Normal 12.5-17.0 [facility]; [facility] Work Phone: Lymphocytes (Bld) [#/Vol] 1.8 10*3/uL Normal 0.7-4.5 [facility]; [facility] Work Phone: Lymphocytes/100 WBC (Bld) 25 % Normal 14-46 [facility] Internal Medicine; [facility] Work Phone: MCH (RBC) [Entitic mass] 30.7 pg Normal 27.0-34.0 [facility] Internal Medicine; [facility] Work Phone: MCHC (RBC) [Mass/Vol] 33.8 g/dL Normal 32.0-36.0 [facility] Internal Medicine; [facility] Work Phone: MCV (RBC) [Entitic vol] 91 fL Normal 80-98 [facility] Internal Medicine; [facility] Work Phone: Monocytes (Bld) [#/Vol] 0.6 10*3/uL Normal 0.1-1.0 [facility] Internal Medicine; [facility] Work Phone: Monocytes/100 WBC (Bld) 8 % Normal 4-13 [facility] Internal Medicine; [facility] Work Phone: Neutrophils (Bld) [#/Vol] 4.7 10*3/uL Normal 1.8-7.8 [facility] Internal [facility]; [facility] Work Phone: Neutrophils/100 WBC (Bld) 65 % Normal 40-74 [facility] Internal [facility]; [facility] Work Phone: Platelets (Bld) [#/Vol] 246 10*3/uL Normal 140-415 [facility] Internal [facility]; [facility] Work Phone: RBC (Bld) [#/Vol] 5.02 10*6/uL Normal 4.10-5.60 [facility] Internal Medicine; [facility] Work Phone: WBC (Bld) [#/Vol] 7.3 10*3/uL Normal 4.0-10.5 [facility] Internal Medicine; [facility] Work Phone: HEPATIC FUNCTION PANEL ([phone])Ordered By: Sherron Mercer on 04-17-2008 Albumin [Mass/Vol] 4.2 g/dL Normal 3.6-4.8 [facility] Internal Medicine; [facility] Internal Medicine Work Phone: ALP [Catalytic activity/Vol] 68 U/L Normal 25-160 [facility]; [facility] Work Phone: ALT [Catalytic activity/Vol] 12 U/L Normal 0-55 [facility]; [facility] Work Phone: AST [Catalytic activity/Vol] 15 U/L Normal 0-40 [facility]; [facility] Work Phone: Bilirubin [Mass/Vol] 1.2 mg/dL Normal 0.1-1.2 [facility] rehensive [facility] Medicine; [facility] Work Phone: Bilirubin.direct [Mass/Vol] 0.18 mg/dL Normal 0.00-0.40 [facility]; [facility] Work Phone: Protein [Mass/Vol] 7.1 g/dL Normal 6.0-8.5 [facility] Internal [facility]; [facility] Work Phone: LIPID PANEL ([id number])Ordered B y: Sherron Mercer on 04-17-2008 Cholesterol [Mass/Vol] 288 mg/dL Abnormal 100-199 [facility]; [facility] Work Phone: Cholesterol in HDL [Mass/Vol] 33 mg/dL Abnormal [facility]; [facility] Work Phone: Cholesterol in LDL [Mass/Vol] 198 mg/dL Abnormal 0-99 [facility]; [facility] Work Phone: Cholesterol in LDL/Cholesterol in HDL [Mass ratio] SPRCS Normal [facility]; [facility] Work Phone: Cholesterol in LDL/Cholesterol in HDL [Mass ratio] 6.0 {ratio_units} Abnormal 0.0-3.6 [facility]; [facility] Work Phone: Cholesterol in VLDL [Mass/Vol] 57 mg/dL Abnormal 5-40 [facility]; [facility] Work Phone: Triglyceride [Mass/Vol] 285 mg/dL Abnormal 0-149 [facility]; [facility] Work Phone: Metabolic Panel, Basic ([phone])Ordered By: Sherron Mercer on 04-17-2008 Calcium [Mass/Vol] 9.4 mg/dL Normal 8.5-10.6 [facility] Internal Medicine; [facility] Work Phone: Chloride [Moles/Vol] 105 mmol/L Normal 97-108 [facility] Medicine; [facility] Work Phone: CO2 [Moles/Vol] 23 mmol/L Normal 20-32 [facility] Internal Medicine; [facility] Work Phone: Creatinine [Mass/Vol] 1.20 mg/dL Normal 0.76-1.27 [facility] Internal Medicine; [facility] Work Phone: GFR/1.73 sq M.predicted among blacks MDRD (S/P/Bld) [Vol rate/Area] mL/min/{1.73_m2} Normal [facility] Internal Medicine; [facility] Work Phone: GFR/1.73 sq M.predicted MDRD (S/P/Bld) [Vol rate/Area] mL/min/{1.73_m2} Normal [facility] Internal [facility]; [facility] Work Phone: Glucose [Mass/Vol] 85 mg/dL Normal 65-99 [facility] Internal Medicine; [facility] Work Phone: Potassium [Moles/Vol] 4.2 mmol/L Normal 3.5-5.2 [facility] Internal Medicine; [facility] Work Phone: Sodium [Moles/Vol] 146 mmol/L Abnormal 135-145 [facility] Internal Medicine; [facility] Work Phone: Urea nitrogen [Mass/Vol] 19 mg/dL Normal 5-26 [facility]; [facility] Work Phone: Urea nitrogen/Creatinine [Mass ratio] 16 mg/mg Normal 8-27 [facility]; [facility] Work Phone: PSA (PROSTATE SPECIFIC ANTIG EN) (V76.44)Ordered By: Sherron Fast on 04-17-2008 Prostate specific Ag [Mass/Vol] 0.9 ng/mL Normal 0.0-4.0 [facility]; [facility] Work Phone: CBC WITH MANUAL DIFF ([id number]) Ordered By: Sherron Mercer on 01-18-2008 Basophils (Bld) [#/Vol] 0.1 10*3/uL Normal 0.0-0.2 [facility]; [facility] Work Phone: Basophils/100 WBC (Bld) 1 % Normal 0-3 [facility]; [facility] Work Phone: Eosinophils (Bld) [#/Vol] 0.1 10*3/uL Normal 0.0-0.4 [facility]; [facility] Work Phone: Eosinophils/100 WBC (Bld) 2 % Normal 0-7 [facility]; [facility] Work Phone: Erythrocyte distribution width (RBC) [Ratio] 13.6 % Normal 11.7-15.0 [facility]; [facility] Work Phone: Hematocrit (Bld) [Volume fraction] 44.3 % Normal 36.0-50.0 [facility]; [facility] Work Phone: Hemoglobin (Bld) [Mass/Vol] 14.9 g/dL Normal 12.5-17.0 [facility]; [facility] Work Phone: Lymphocytes (Bld) [#/Vol] 1.9 10*3/uL Normal 0.7-4.5 [facility]; [facility] Work Phone: Lymphocytes/100 WBC (Bld) 33 % Normal 14-46 [facility]; [facility] Work Phone: MCH (RBC) [Entitic mass] 30.2 pg Normal 27.0-34.0 [facility]; [facility] Work Phone: MCHC (RBC) [Mass/Vol] 33.7 g/dL Normal 32.0-36.0 [facility] prehensive Internal Medicine; [facility] Work Phone: MCV (RBC) [Entitic vol] 90 fL Normal 80-98 [facility]; [facility] Work Phone: Monocytes (Bld) [#/Vol] 0.6 10*3/uL Normal 0.1-1.0 [facility]; [facility] Work Phone: Monocytes/100 WBC (Bld) 10 % Normal 4-13 [facility]; [facility] Work Phone: Neutrophils (Bld) [#/Vol] 3.2 10*3/uL Normal 1.8-7.8 [facility]; [facility] Work Phone: Neutrophils/100 WBC (Bld) 54 % Normal 40-74 [facility]; [facility] Work Phone: Platelets (Bld) [#/Vol] 248 10*3/uL Normal 140-415 [facility]; [facility] Work Phone: RBC (Bld) [#/Vol] 4.95 10*6/uL Normal 4.10-5.60 [facility] e[facility]; [facility] Work Phone: WBC (Bld) [#/Vol] 5.9 10*3/uL Normal 4.0-10.5 Compre hensive [facility] Medicine; [facility] Work Phone: HEPATIC FUNCTION PANEL ([phone])Ordered By: Sherron Fast on 01-18-2008 Bilirubin.direct [Mass/Vol] 0.20 mg/dL Normal 0.00-0.40 [facility]; [facility] Work Phone: LIPID PANEL ([id number])Ordered B y: Sherron Fast on 01-18-2008 Cholesterol [Mass/Vol] 264 mg/dL Abnormal 100-199 [facility]; [facility] Work Phone: Cholesterol in HDL [Mass/Vol] 33 mg/dL Abnormal 40-59 [facility]; [facility] Work Phone: Cholesterol in LDL [Mass/Vol] 183 mg/dL Abnormal 0-99 [facility]; [facility] Work Phone: Cholesterol in LDL/Cholesterol in HDL [Mass ratio] SPRCS Normal [facility]; [facility] Work Phone: Cholesterol in LDL/Cholesterol in HDL [Mass ratio] 5.5 {ratio_units} Abnormal 0.0-3.6 [facility]; [facility] Work Phone: Cholesterol in VLDL [Mass/Vol] 48 mg/dL Abnormal 5-40 [facility]; [facility] Work Phone: Triglyceride [Mass/Vol] 242 mg/dL Abnormal 0-149 [facility]; [facility] Work Phone: LIPID PANEL ([id number])Ordered B y: Sherron Fast on 08-03-2007 Cholesterol [Mass/Vol] 154 mg/dL Normal 100-199 [facility]; [facility] Work Phone: Cholesterol in HDL [Mass/Vol] 37 mg/dL Abnormal 40-59 [facility]; [facility] Work Phone: Cholesterol in LDL [Mass/Vol] 87 mg/dL Normal 0-99 [facility]; [facility] Work Phone: Cholesterol in LDL/Cholesterol in HDL [Mass ratio] 2.4 {ratio_units} Normal 0.0-3.6 [facility]; [facility] Work Phone: Cholesterol in VLDL [Mass/Vol] 30 mg/dL Normal 5-40 [facility]; [facility] Work Phone: Triglyceride [Mass/Vol] 152 mg/dL Abnormal 0-149 [facility]; [facility] Work Phone: METABOLIC PANEL, COMPREHENSI VE ([id number])Ordered By: Sherron Fast on 08-03-2007 Albumin [Mass/Vol] 4.4 g/dL Normal 3.6-4.8 Compre hens[facility] Medicine; [facility] Work Phone: Albumin/Globulin [Mass ratio] 1.5 {ratio} Normal 1.1-2.5 [facility]; [facility] Work Phone: ALP [Catalytic activity/Vol] 73 U/L Normal 25-160 [facility]; [facility] Work Phone: ALT [Catalytic activity/Vol] 19 U/L Normal 0-55 [facility] Internal Medicine; [facility] Internal Medicine Work Phone: AST [Catalytic activity/Vol] 19 U/L Normal 0-40 [facility] Internal Medicine; [facility] Work Phone: Bilirubin [Mass/Vol] 1.1 mg/dL Normal 0.1-1.2 [facility]; [facility] Work Phone: Calcium [Mass/Vol] 9.3 mg/dL Normal 8.5-10.6 [facility] Internal Medicine; [facility] Internal Medicine Work Phone: Chloride [Moles/Vol] 100 mmol/L Normal 96-109 [facility] Internal Medicine; [facility] Internal Medicine Work Phone: CO2 [Moles/Vol] 25 mmol/L Normal 20-32 [facility] Internal Medicine; [facility] Internal Medicine Work Phone: Creatinine [Mass/Vol] 1.2 mg/dL Normal 0.5-1.5 [facility] Work Phone: Globulin (S) [Mass/Vol] 3.0 g/dL Normal 1.5-4.5 [facility]; [facility] Internal Medicine Work Phone: Glucose [Mass/Vol] 43 mg/dL Abnormal 65-99 [facility] Internal Medicine; [facility] Internal Medicine Work Phone: Potassium [Moles/Vol] 4.3 mmol/L Normal 3.5-5.5 [facility] Internal Medicine; [facility] Internal Medicine Work Phone: Protein [Mass/Vol] 7.4 g/dL Normal 6.0-8.5 [facility] Internal Medicine; [facility] Internal Medicine Work Phone: Sodium [Moles/Vol] 143 mmol/L Normal 135-148 [facility] Internal Medicine; [facility] Internal Medicine Work Phone: Urea nitrogen [Mass/Vol] 21 mg/dL Normal 5-26 [facility] Internal Medicine; [facility] Medicine Work Phone: Urea nitrogen/Creatinine [Mass ratio] 18 mg/mg Normal 8-27 [facility]; [facility] Work Phone: PSA (PROSTATE SPECIFIC ANTIG EN) ([id number])Ordered By: Sherron Mercer on 08-03-2007 Prostate specific Ag [Mass/Vol] 0.6 ng/mL Normal 0.0-4.0 [facility]; [facility] Work Phone: Rapid Strep Test, Office ([phone])Ordered By: Jaquelin Everett on 05-20-2007 S. pyogenes Ag EIA Ql (Throat) Negative Normal [facility]; [facility] Work Phone: METABOLIC PANEL, COMPREHENSI VE ([id number])Ordered By: Sherron Mercer on 03-15-2007 Albumin [Mass/Vol] 4.3 g/dL Normal 3.6-4.8 [facility]; [facility] Work Phone: Albumin/Globulin [Mass ratio] 1.7 {ratio} Normal 1.1-2.5 [facility] Internal [facility]; [facility] Work Phone: ALP [Catalytic activity/Vol] 61 U/L Normal 25-160 [facility]; [facility] Work Phone: ALT [Catalytic activity/Vol] 12 U/L Normal 0-55 [facility]; [facility] Work Phone: AST [Catalytic activity/Vol] 17 U/L Normal 0-40 [facility]; [facility] Work Phone: Bilirubin [Mass/Vol] 1.7 mg/dL Abnormal 0.1-1.2 [facility]; [facility] Work Phone: Calcium [Mass/Vol] 9.4 mg/dL Normal 8.5-10.6 [facility] Internal Medicine; [facility] Internal Medicine Work Phone: Chloride [Moles/Vol] 103 mmol/L Normal 96-109 [facility] Internal Medicine; [facility] Internal Medicine Work Phone: CO2 [Moles/Vol] 28 mmol/L Normal 20-32 [facility] Internal Medicine; [facility] Internal Medicine Work Phone: Creatinine [Mass/Vol] 1.2 mg/dL Normal 0.5-1.5 [facility] prehensive Internal Medicine; [facility] Work Phone: Globulin (S) [Mass/Vol] 2.6 g/dL Normal 1.5-4.5 [facility]; [facility] Work Phone: Glucose [Mass/Vol] 92 mg/dL Normal 65-99 [facility] Internal Medicine; [facility] Internal Medicine Work Phone: Potassium [Moles/Vol] 3.8 mmol/L Normal 3.5-5.5 [facility] prehensive Internal Medicine; [facility] Work Phone: Protein [Mass/Vol] 6.9 g/dL Normal 6.0-8.5 [facility] Internal Medicine; [facility] Internal Medicine Work Phone: Sodium [Moles/Vol] 142 mmol/L Normal 135-148 [facility] Internal Medicine; [facility] Medicine Work Phone: Urea nitrogen [Mass/Vol] 19 mg/dL Normal 5-26 [facility]; [facility] Work Phone: Urea nitrogen/Creatinine [Mass ratio] 16 mg/mg Normal 8-27 [facility]; [facility] Work Phone: Culture, urine Bacteria identified Cx Nom (U) Pseudomonas aeroginosa [facility] Work Phone: Bacteria identified Cx Nom (U) Culture exhibits no growth. [facility] Work Phone: Vital Signs Date Time Vital Sign Value Performing Clinician Facility 11-14-2024 16:19-0400 Diastolic blood pressure 92 mm[Hg] [facility] 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-C Work Phone: [facility] 11-14-2024 16:19-0400 Heart rate 54 /min [facility] 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-C Work Phone: [facility] 11-14-2024 16:19-0400 Respiratory rate 18 /min [facility] 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-C Work Phone: [facility] 11-14-2024 16:19-0400 SaO2% (BldA) [Mass fraction] 98 % Juansammy Rodriguez 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-C Work Phone: [facility] 11-14-2024 16:19-0400 Systolic blood pressure 171 mm[Hg] Juan Negro 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-C Work Phone: [facility] 11-14-2024 14:20-0400 Body height 180.34 cm Juan Negro 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-C Work Phone: [facility] 11-14-2024 14:20-0400 Body temperature 97.5 [degF] Juan Davisgar 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-C Work Phone: [facility] 11-01-2024 07:31-0400 Body mass index (BMI) [Ratio] 22.8 kg/m2 Juan Davisgar 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-C Work Phone: [facility] 11-01-2024 07:31-0400 Body weight 74.38 kg Juan Negro 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-C Work Phone: [facility] 11-01-2024 07:31-0400 Diastolic blood pressure 62 mm[Hg] Juan Davisgar 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-C Work Phone: [facility] 11-01-2024 07:31-0400 Heart rate 57 /min Juan Davisgar 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-C Work Phone: [facility] 11-01-2024 07:31-0400 Respiratory rate 16 /min Juan Negro 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-C Work Phone: [facility] 11-01-2024 07:31-0400 Systolic blood pressure 100 mm[Hg] Juan Negro 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-C Work Phone: [facility] 08-16-2024 17:32-0400 Body height 180.[address] Butch Barcenas DO Work Phone: [facility] 08-16-2024 17:32-0400 Body mass index (BMI) [Ratio] 22.8 kg/m2 Dr. Butch Barcenas DO Work Phone: [facility] 08-16-2024 17:32-0400 Body temperature 98.9 [degF] Dr. Butch Barcenas DO Work Phone: [facility] 08-16-2024 17:32-0400 Body weight 74.[address] Butch Barcenas DO Work Phone: [facility] 08-16-2024 17:32-0400 Diastolic blood pressure 84 mm[Hg] Dr. Butch Barcenas DO Work Phone: [facility] 08-16-2024 17:32-0400 Heart rate 87 /min Dr. Butch Barcenas DO Work Phone: [phone] [place] [address] 08-16-2024 17:32-0400 Respiratory rate 18 /min Dr. Butch Barcenas DO Work Phone: [phone] [place] [address] 08-16-2024 17:32-0400 SaO2% (BldA) [Mass fraction] 100 % Dr. Butch Barcenas DO Work Phone: [facility] 08-16-2024 17:32-0400 Systolic blood pressure 179 mm[Hg] Dr. Butch Barcenas DO Work Phone: [facility] 07-07-2024 13:45-0500 Body height 180.[address] DAY NEWBERRY MD [facility] 07-07-2024 13:45-0500 Body weight 78.[address] DAY NEWBERRY MD [facility] 07-07-2024 13:45-0500 Body weight 24.24 kg/m2 DR DAY NEWBERRY MD [facility] 07-07-2024 13:45-0500 Diastolic Blood Pressure Non-Invasive 79 mm[Hg] DR DAY NEWBERRY MD [facility] 07-07-2024 13:45-0500 Heart rate 65 /min DR DAY NEWBERRY MD [facility] 07-07-2024 13:45-0500 Respiratory rate 20 /min DR DAY NEWBERRY MD [facility] 07-07-2024 13:45-0500 Systolic Blood Pressure Non-Invasive 120 mm[Hg] DR DAY NEWBERRY MD [facility] 05-18-2024 10:04-0500 Body mass index (BMI) [Ratio] 23.6 kg/m2 Dr. Butch Barcenas DO Work Phone: 7(091)969-520518 [place] [address] 05-18-2024 10:04-0500 Body weight 76.[address] Butch Barcenas DO Work Phone: 5(839)862-329318 [place] [address] 05-18-2024 10:04-0500 Diastolic blood pressure 67 mm[Hg] Dr. Butch Barcenas DO Work Phone: 7(679)981-216418 [place] [address] 05-18-2024 10:04-0500 Heart rate 66 /min Dr. Butch Barcenas DO Work Phone: 8(917)682-716218 [place] [address] 05-18-2024 10:04-0500 Respiratory rate 16 /min Dr. Butch Barcenas DO Work Phone: 4(304)442-870718 [place] [address] 05-18-2024 10:04-0500 SaO2% (BldA) [Mass fraction] 98 % Dr. Butch Barcenas DO Work Phone: [facility] 05-18-2024 10:04-0500 Systolic blood pressure 115 mm[Hg] Dr. Butch Barcenas DO Work Phone: [facility] 04-28-2024 08:51-0500 Body temperature 97.8 [degF] Dr. Butch Barcenas DO Work Phone: [facility] 04-28-2024 08:51-0500 Diastolic blood pressure 68 mm[Hg] Dr. Butch Barcenas DO Work Phone: [facility] 04-28-2024 08:51-0500 Heart rate 98 /min Dr. Butch Barcenas DO Work Phone: 1(665)914-925518 [place] [address] 04-28-2024 08:51-0500 Respiratory rate 16 /min Dr. Butch Barcenas DO Work Phone: 1(746)359-994118 [place] [address] 04-28-2024 08:51-0500 SaO2% (BldA) [Mass fraction] 98 % Dr. Butch Barcenas DO Work Phone: 9(903)469-437118 [place] [address] 04-28-2024 08:51-0500 Systolic blood pressure 116 mm[Hg] Dr. Butch Barcenas DO Work Phone: 0(074)954-439318 [place] [address] 04-27-2024 02:48-0500 Body mass index (BMI) [Ratio] 22 kg/m2 Dr. Butch Barcenas DO Work Phone: 4(893)848-908218 [place] [address] 04-26-2024 10:54-0500 Body weight 71.[address] Butch Barcenas DO Work Phone: 1(607)999-801318 [place] [address] 10-03-2023 08:02-0400 SaO2% (BldA) [Mass fraction] 97 % Dr. Jose Hooks Work Phone: [facility] 10-03-2023 07:58-0400 Body temperature 97.6 [degF] Dr. Jose Hooks Work Phone: [facility] 10-03-2023 07:58-0400 Diastolic blood pressure 94 mm[Hg] Dr. Jose Hooks Work Phone: [facility] 10-03-2023 07:58-0400 Heart rate 60 /min Dr. Jose Hooks Work Phone: [facility] 10-03-2023 07:58-0400 Respiratory rate 16 /min Dr. Jose Hooks Work Phone: [facility] 10-03-2023 07:58-0400 Systolic blood pressure 168 mm[Hg] Dr. Jose Hooks Work Phone: [facility] 10-03-2023 00:28-0400 Body mass index (BMI) [Ratio] 25 kg/m2 Dr. Jose Hooks Work Phone: [facility] 10-03-2023 00:28-0400 Body weight 81.[address] Jose Hooks Work Phone: 7(890)635-327697 [place] [address] 10-01-2023 10:43-0400 Body height 180.[address] Jose Hooks Work Phone: 3(537)033-833497 [place] [address] 09-30-2023 18:34-0400 Inhaled oxygen flow rate 95 L/min Dr. Jose Hooks Work Phone: 0(341)804-322154 [place] [address] 09-30-2023 16:36-0400 Body temperature 99.4 [degF] Dr. Jose Hooks Work Phone: 2(990)010-813839 [address] 09-30-2023 16:36-0400 Diastolic blood pressure 69 mm[Hg] Dr. Jose Hooks Work Phone: 4(920)394-032439 [address] 09-30-2023 16:36-0400 Heart rate 74 /min Dr. Jose Hooks Work Phone: 9(787)492-174754 [place] [address] 09-30-2023 16:36-0400 Respiratory rate 16 /min Dr. Jose Hooks Work Phone: 5(635)422-937754 [place] [address] 09-30-2023 16:36-0400 SaO2% (BldA) [Mass fraction] 92 % Dr. Jose Hooks Work Phone: 5(203)338-943597 [place] [address] 09-30-2023 16:36-0400 Systolic blood pressure 122 mm[Hg] Dr. Jose Hooks Work Phone: 8(057)655-563797 [place] [address] 09-30-2023 09:39-0400 Body mass index (BMI) [Ratio] 23.7 kg/m2 Dr. Jose Hooks Work Phone: 2(879)505-169597 [place] [address] 09-30-2023 09:39-0400 Body weight 77.[address] Jose Hooks Work Phone: [facility] 09-30-2023 09:37-0400 Body height 180.[address] Jose Hooks Work Phone: 4(187)737-151997 [place] [address] 08-18-2023 13:14-0400 Body temperature 98.4 [degF] Dr. Jose Hooks Work Phone: 0(639)595-101697 [place] [address] 08-18-2023 13:14-0400 Body weight 80.[address] Jose Hooks Work Phone: 9(698)981-153697 [place] [address] 08-18-2023 13:14-0400 Diastolic blood pressure 94 mm[Hg] Dr. Jose Hooks Work Phone: 1(179)379-019339 [address] 08-18-2023 13:14-0400 Heart rate 59 /min Dr. Jose Hooks Work Phone: 9(051)229-088139 [address] 08-18-2023 13:14-0400 Respiratory rate 16 /min Dr. Jose Hooks Work Phone: 2(764)452-905354 [place] [address] 08-18-2023 13:14-0400 SaO2% (BldA) [Mass fraction] 94 % Dr. Jose Hooks Work Phone: 8(901)725-758639 [address] 08-18-2023 13:14-0400 Systolic blood pressure 165 mm[Hg] Dr. Jose Hooks Work Phone: 0(183)881-855897 [place] [address] 06-25-2023 11:00-0500 Body temperature 98.4 [degF] Dr. Jose Hooks Work Phone: 3(702)744-750397 [place] [address] 06-25-2023 11:00-0500 Body weight 76.[address] Jose Hooks Work Phone: 7(683)795-593097 [place] [address] 06-25-2023 11:00-0500 Diastolic blood pressure 79 mm[Hg] Dr. Jose Hooks Work Phone: 9(453)215-053097 [place] [address] 06-25-2023 11:00-0500 Heart rate 65 /min Dr. Jose Hooks Work Phone: 9(288)120-067697 [place] [address] 06-25-2023 11:00-0500 Respiratory rate 16 /min Dr. Jose Hooks Work Phone: [facility] 06-25-2023 11:00-0500 SaO2% (BldA) [Mass fraction] 96 % Dr. Jose Hooks Work Phone: [facility] 06-25-2023 11:00-0500 Systolic blood pressure 115 mm[Hg] Dr. Jose Hooks Work Phone: 8(042)868-683197 [place] [address] 06-03-2023 09:05-0500 Body height 180.[address] Jose Hooks Work Phone: 1(996)184-081997 [place] [address] 06-03-2023 09:05-0500 Body weight 74.[address] Jose Hooks Work Phone: 5(181)402-791197 [place] [address] 06-02-2023 11:31-0500 Body mass index (BMI) [Ratio] 22.9 kg/m2 Dr. Jose Hooks Work Phone: 2(561)280-575997 [place] [address] 05-30-2023 16:35-0500 Diastolic blood pressure 93 mm[Hg] Dr. Jose Hooks Work Phone: 9(347)219-966697 [place] [address] 05-30-2023 16:35-0500 Heart rate 77 /min Dr. Jose Hooks Work Phone: 8(688)997-418697 [place] [address] 05-30-2023 16:35-0500 Respiratory rate 16 /min Dr. Jose Hooks Work Phone: [facility] 05-30-2023 16:35-0500 SaO2% (BldA) [Mass fraction] 97 % Dr. Jose Hooks Work Phone: [facility] 05-30-2023 16:35-0500 Systolic blood pressure 137 mm[Hg] Dr. Jose Hooks Work Phone: [facility] 05-30-2023 11:13-0500 Body height 180.[address] Jose Hooks Work Phone: 0(614)024-956797 [place] [address] 05-30-2023 11:13-0500 Body weight 74.[address] Jose Hooks Work Phone: 0(840)546-022197 [place] [address] 05-30-2023 10:00-0500 Diastolic blood pressure 85 mm[Hg] Dr. Jose Hooks Work Phone: [facility] 05-30-2023 10:00-0500 Heart rate 66 /min Dr. Jose Hooks Work Phone: [facility] 05-30-2023 10:00-0500 Systolic blood pressure 120 mm[Hg] Dr. Jose Hooks Work Phone: [facility] 05-30-2023 09:58-0500 Body temperature 97.9 [degF] Dr. Jose Hooks Work Phone: [facility] 05-30-2023 09:58-0500 Respiratory rate 18 /min Dr. Jose Hooks Work Phone: [facility] 05-30-2023 09:58-0500 SaO2% (BldA) [Mass fraction] 96 % Dr. Jose Hooks Work Phone: [facility] 05-30-2023 06:00-0500 Body mass index (BMI) [Ratio] 22.9 kg/m2 Dr. Jose Hooks Work Phone: [facility] 05-29-2023 16:44-0500 Diastolic blood pressure 89 mm[Hg] Dr. Jose Hooks Work Phone: [facility] 05-29-2023 16:44-0500 Heart rate 69 /min Dr. Jose Hooks Work Phone: [facility] 05-29-2023 16:44-0500 Respiratory rate 18 /min Dr. Jose Hooks Work Phone: [facility] 05-29-2023 16:44-0500 SaO2% (BldA) [Mass fraction] 96 % Dr. Jose Hooks Work Phone: [facility] 05-29-2023 16:44-0500 Systolic blood pressure 141 mm[Hg] Dr. Jose Hooks Work Phone: [facility] 05-29-2023 14:37-0500 Body mass index (BMI) [Ratio] 24.2 kg/m2 Dr. Jose Hooks Work Phone: [facility] 05-29-2023 14:37-0500 Body weight 76.[address] Jose Hooks Work Phone: [facility] 05-29-2023 14:06-0500 Body height 177.[address] Jose Hooks Work Phone: [facility] 05-29-2023 14:06-0500 Body temperature 98.2 [degF] Dr. Jose Hooks Work Phone: [facility] 05-23-2023 15:32-0500 Inhaled oxygen flow rate 0 L/min Dr. Jose Hooks Work Phone: [facility] 05-23-2023 15:32-0500 SaO2% (BldA) [Mass fraction] 91 % Dr. Jose Hoosk Work Phone: [facility] 05-23-2023 13:25-0500 Body temperature 97.5 [degF] Dr. Jose Hooks Work Phone: [facility] 05-23-2023 13:25-0500 Diastolic blood pressure 72 mm[Hg] Dr. Jose Hooks Work Phone: [facility] 05-23-2023 13:25-0500 Heart rate 60 /min Dr. Jose Hooks Work Phone: [facility] 05-23-2023 13:25-0500 Respiratory rate 16 /min Dr. Jose Hooks Work Phone: [facility] 05-23-2023 13:25-0500 Systolic blood pressure 118 mm[Hg] Dr. Jose Hooks Work Phone: [facility] 05-23-2023 13:15-0500 Body mass index (BMI) [Ratio] 21.4 kg/m2 Dr. Jose Hooks Work Phone: [facility] 05-22-2023 14:59-0500 Body height 185.[address] Jose Hooks Work Phone: [facility] 05-22-2023 14:59-0500 Body weight 74.[address] Jose Hooks Work Phone: 7(746)842-804797 [place] [address] 05-20-2023 12:37-0500 Body height 185.[address] Jose Hooks Work Phone: 8(044)858-619854 [place] [address] 05-20-2023 12:37-0500 Body mass index (BMI) [Ratio] 21.4 kg/m2 Dr. Jose Hooks Work Phone: 8(435)231-226039 [address] 05-20-2023 12:37-0500 Body weight 74.[address] Jose Hooks Work Phone: 6(021)222-157454 [place] [address] 05-20-2023 12:00-0500 Body temperature 98 [degF] Dr. Jose Hooks Work Phone: 6(495)745-012054 [place] [address] 05-20-2023 12:00-0500 Diastolic blood pressure 84 mm[Hg] Dr. Jose Hooks Work Phone: 5(738)145-327654 [place] [address] 05-20-2023 12:00-0500 Heart rate 82 /min Dr. Jose Hooks Work Phone: 0(048)083-270054 [place] [address] 05-20-2023 12:00-0500 Respiratory rate 16 /min Dr. Jose Hooks Work Phone: 5(146)798-167954 [place] [address] 05-20-2023 12:00-0500 SaO2% (BldA) [Mass fraction] 94 % Dr. Jose Hooks Work Phone: 5(816)244-106897 [place] [address] 05-20-2023 12:00-0500 Systolic blood pressure 144 mm[Hg] Dr. Jose Hooks Work Phone: 9(547)098-576197 [place] [address] 04-15-2023 15:21-0500 Body height 180.[address] Jose Hooks Work Phone: 3(507)631-830254 [place] [address] 04-15-2023 15:18-0500 Body mass index (BMI) [Ratio] 24.8 kg/m2 Dr. Jose Hooks Work Phone: 9(797)891-928739 [address] 04-15-2023 15:18-0500 Body weight 78.[address] Jose Hooks Work Phone: [facility] 04-15-2023 15:18-0500 Diastolic blood pressure 89 mm[Hg] Dr. Jose Hooks Work Phone: [facility] 04-15-2023 15:18-0500 Heart rate 63 /min Dr. Jose Hooks Work Phone: [facility] 04-15-2023 15:18-0500 Respiratory rate 18 /min Dr. Jose Hooks Work Phone: [facility] 04-15-2023 15:18-0500 SaO2% (BldA) [Mass fraction] 97 % Dr. Jose Hooks Work Phone: [facility] 04-15-2023 15:18-0500 Systolic blood pressure 129 mm[Hg] Dr. Jose Hooks Work Phone: 2(882)938-392297 [place] [address] 04-13-2023 08:14-0500 Body height 180.[address] Jose Hooks Work Phone: 4(734)923-608097 [place] [address] 04-13-2023 08:14-0500 Body weight 78.[address] Jose Hooks Work Phone: [facility] 03-13-2023 08:22-0400 Body weight 77.[address] Jose Hooks Work Phone: [facility] 02-11-2023 07:34-0400 Body height 180.[address] Jose Hooks Work Phone: [facility] 02-11-2023 07:34-0400 Body weight 79.[address] Jose Hooks Work Phone: [facility] 01-15-2023 14:56-0400 Body height 180.[address] Jose Hooks Work Phone: [facility] 01-15-2023 14:56-0400 Body mass index (BMI) [Ratio] 23.6 kg/m2 Dr. Jose Hooks Work Phone: [facility] 01-15-2023 14:56-0400 Body weight 76.[address] Jose Hooks Work Phone: [facility] 01-15-2023 14:56-0400 Diastolic blood pressure 90 mm[Hg] Dr. Jose Hooks Work Phone: [facility] 01-15-2023 14:56-0400 Heart rate 63 /min Dr. Jose Hooks Work Phone: [facility] 01-15-2023 14:56-0400 Respiratory rate 18 /min Dr. Jose Hooks Work Phone: 6(660)003-745597 [place] [address] 01-15-2023 14:56-0400 SaO2% (BldA) [Mass fraction] 95 % Dr. Jose Hooks Work Phone: 8(938)553-379197 [place] [address] 01-15-2023 14:56-0400 Systolic blood pressure 142 mm[Hg] Dr. Jose Hooks Work Phone: 7(437)170-115597 [place] [address] 01-12-2023 13:54-0400 Body mass index (BMI) [Ratio] 23.2 kg/m2 Dr. Jose Hooks Work Phone: 2(220)250-836997 [place] [address] 01-12-2023 13:51-0400 Body weight 75.[address] Jose Hooks Work Phone: 0(809)807-002997 [place] [address] 01-12-2023 13:07-0400 Diastolic blood pressure 85 mm[Hg] Dr. Jose Hooks Work Phone: [facility] 01-12-2023 13:07-0400 Heart rate 64 /min Dr. Jose Hooks Work Phone: [facility] 01-12-2023 13:07-0400 Systolic blood pressure 121 mm[Hg] Dr. Jose Hooks Work Phone: [facility] 01-06-2023 10:02-0400 Body temperature 97.1 [degF] Dr. Jose Hooks Work Phone: [facility] 01-06-2023 10:02-0400 Diastolic blood pressure 98 mm[Hg] Dr. Jose Hooks Work Phone: [facility] 01-06-2023 10:02-0400 Heart rate 56 /min Dr. Jose Hooks Work Phone: [facility] 01-06-2023 10:02-0400 Respiratory rate 18 /min Dr. Jose Hooks Work Phone: [facility] 01-06-2023 10:02-0400 SaO2% (BldA) [Mass fraction] 96 % Dr. Jose Hooks Work Phone: [facility] 01-06-2023 10:02-0400 Systolic blood pressure 140 mm[Hg] Dr. Jose Hooks Work Phone: [facility] 01-06-2023 05:26-0400 Body mass index (BMI) [Ratio] 23.3 kg/m2 Dr. Jose Hooks Work Phone: 7(315)124-250597 [place] [address] 01-06-2023 05:26-0400 Body weight 75.[address] Jose Hooks Work Phone: 7(761)801-970497 [place] [address] 01-05-2023 11:05-0400 Body height 180.[address] oJse Hooks Work Phone: [facility] 12-09-2022 13:00-0400 Body mass index (BMI) [Ratio] 23.1 kg/m2 Dr. Jose Hooks Work Phone: [facility] 12-09-2022 13:00-0400 Body weight 75.[address] Jose Hooks Work Phone: [facility] 12-09-2022 13:00-0400 Diastolic blood pressure 85 mm[Hg] Dr. Jose Hooks Work Phone: [facility] 12-09-2022 13:00-0400 Heart rate 64 /min Dr. Jose Hooks Work Phone: [facility] 12-09-2022 13:00-0400 Respiratory rate 16 /min Dr. Jose Hooks Work Phone: [facility] 12-09-2022 13:00-0400 Systolic blood pressure 121 mm[Hg] Dr. Jose Hooks Work Phone: [facility] 11-17-2022 23:19-0400 Diastolic blood pressure 96 mm[Hg] Dr. Jose Hooks Work Phone: 8(515)357-262497 [place] [address] 11-17-2022 23:19-0400 Heart rate 62 /min Dr. Jose Hooks Work Phone: 7(190)789-268097 [place] [address] 11-17-2022 23:19-0400 Respiratory rate 15 /min Dr. Jose Hooks Work Phone: 7(546)727-953397 [place] [address] 11-17-2022 23:19-0400 SaO2% (BldA) [Mass fraction] 97 % Dr. Jose Hooks Work Phone: 0(491)289-613054 [place] [address] 11-17-2022 23:19-0400 Systolic blood pressure 179 mm[Hg] Dr. Jose Hooks Work Phone: 9(056)294-228697 [place] [address] 11-17-2022 18:12-0400 Body mass index (BMI) [Ratio] 23.5 kg/m2 Dr. Jose Hooks Work Phone: 6(440)556-180254 [place] [address] 11-17-2022 18:12-0400 Body temperature 97.8 [degF] Dr. Jose Hooks Work Phone: 9(033)018-366054 [place] [address] 11-17-2022 18:12-0400 Body weight 76.[address] Jose Hooks Work Phone: 9(950)576-546797 [place] [address] 11-04-2022 11:26-0400 Body height 180.[address] Jose Hooks Work Phone: 4(730)250-386697 [place] [address] 11-04-2022 11:26-0400 Body mass index (BMI) [Ratio] 22.6 kg/m2 Dr. Jose Hooks Work Phone: 3(353)908-602497 [place] [address] 11-04-2022 11:26-0400 Body weight 73.[address] Jose Hooks Work Phone: 7(505)651-206954 [place] [address] 11-04-2022 11:26-0400 Diastolic blood pressure 83 mm[Hg] Dr. Jose Hooks Work Phone: [facility] 11-04-2022 11:26-0400 Heart rate 55 /min Dr. Jose Hooks Work Phone: [facility] 11-04-2022 11:26-0400 Respiratory rate 16 /min Dr. Jose Hooks Work Phone: [facility] 11-04-2022 11:26-0400 Systolic blood pressure 122 mm[Hg] Dr. Jose Hooks Work Phone: 1(131)099-179997 [place] [address] 06-26-2022 09:41-0500 Body height 180.[address] Jose Hooks Work Phone: 5(686)242-345397 [place] [address] 06-26-2022 09:41-0500 Body mass index (BMI) [Ratio] 23.8 kg/m2 Dr. Jose Hooks Work Phone: 5(637)977-350554 [place] [address] 06-26-2022 09:41-0500 Body weight 77.[address] Jose Hooks Work Phone: 6(444)280-880539 [address] 06-26-2022 09:41-0500 Diastolic blood pressure 81 mm[Hg] Dr. Jose Hooks Work Phone: 7(785)061-164997 [place] [address] 06-26-2022 09:41-0500 Heart rate 63 /min Dr. Jose Hooks Work Phone: 5(917)965-804197 [place] [address] 06-26-2022 09:41-0500 Respiratory rate 18 /min Dr. Jose Hooks Work Phone: 6(894)785-436697 [place] [address] 06-26-2022 09:41-0500 SaO2% (BldA) [Mass fraction] 97 % Dr. Jose Hooks Work Phone: 3(070)043-753097 [place] [address] 06-26-2022 09:41-0500 Systolic blood pressure 147 mm[Hg] Dr. Jose Hooks Work Phone: 8(713)996-486497 [place] [address] 03-18-2022 14:14-0400 Diastolic blood pressure 90 mm[Hg] Dr. Jose Hooks Work Phone: [facility] 03-18-2022 14:14-0400 Systolic blood pressure 160 mm[Hg] Dr. Jose Hooks Work Phone: [facility] 03-18-2022 13:46-0400 Body height 180.[address] Jose Hooks Work Phone: [facility] Work Phone: 03-18-2022 13:46-0400 Body mass index (BMI) [Ratio] 23.8 kg/m2 Dr. Jose Hooks Work Phone: [facility] 03-18-2022 13:46-0400 Body weight 77.[address] Jose Hooks Work Phone: [facility] 03-18-2022 13:46-0400 Heart rate 58 /min Dr. Jose Hooks Work Phone: [facility] 03-18-2022 13:46-0400 Respiratory rate 16 /min Dr. Jose Hooks Work Phone: [facility] 01-09-2022 09:17-0400 Body height 180.[address] Jose Hooks Work Phone: [facility] Work Phone: 01-09-2022 09:17-0400 Diastolic blood pressure 80 mm[Hg] Dr. Jose Hooks Work Phone: [facility] Work Phone: 01-09-2022 09:17-0400 Systolic blood pressure 130 mm[Hg] Dr. Jose Hooks Work Phone: [facility] Work Phone: 01-09-2022 09:17-0400 Body mass index (BMI) [Ratio] 23.7 kg/m2 Dr. Jose Hooks Work Phone: [facility] Work Phone: 01-09-2022 09:17-0400 Body weight 77.[address] Jose Hooks Work Phone: [facility] Work Phone: 01-09-2022 09:17-0400 Heart rate 67 /min Dr. Jose Hooks Work Phone: [facility] Work Phone: 01-09-2022 09:17-0400 Respiratory rate 18 /min Dr. Jose Hooks Work Phone: [facility] Work Phone: 01-09-2022 09:17-0400 SaO2% (BldA) [Mass fraction] 96 % Dr. Jose Hooks Work Phone: [facility] Work Phone: 12-25-2021 09:54-0400 Diastolic blood pressure 100 mm[Hg] Dr. Jose Hooks Work Phone: [facility] Work Phone: 12-25-2021 09:54-0400 Heart rate 68 /min Dr. Jose Hooks Work Phone: [facility] Work Phone: 12-25-2021 09:54-0400 Systolic blood pressure 160 mm[Hg] Dr. Jose Hooks Work Phone: [facility] Work Phone: 09-18-2021 08:49-0400 Body height 180.[address] Jose Hooks Work Phone: [facility] Work Phone: 09-18-2021 08:49-0400 Body mass index (BMI) [Ratio] 23.8 kg/m2 Dr. Jose Hooks Work Phone: [facility] Work Phone: 09-18-2021 08:49-0400 Body weight 77.[address] Jose Hooks Work Phone: [facility] Work Phone: 09-18-2021 08:49-0400 Diastolic blood pressure 59 mm[Hg] Dr. Jose Hooks Work Phone: [facility] Work Phone: 09-18-2021 08:49-0400 Heart rate 59 /min Dr. Jose Hooks Work Phone: [facility] Work Phone: 09-18-2021 08:49-0400 Respiratory rate 18 /min Dr. Jose Hooks Work Phone: [facility] Work Phone: 09-18-2021 08:49-0400 SaO2% (BldA) [Mass fraction] 98 % Dr. Jose Hooks Work Phone: [facility] Work Phone: 09-18-2021 08:49-0400 Systolic blood pressure 101 mm[Hg] Dr. Jose Hooks Work Phone: [facility] Work Phone: 09-18-2021 08:49-0400 Body height 180.[address] Jose Hooks Work Phone: [facility] Work Phone: 09-18-2021 08:49-0400 Body mass index (BMI) [Ratio] 23.8 kg/m2 Dr. Jose Hooks Work Phone: [facility] Work Phone: 09-18-2021 08:49-0400 Body weight 77.[address] Jose Hooks Work Phone: [facility] Work Phone: 09-18-2021 08:49-0400 Diastolic blood pressure 59 mm[Hg] Dr. Jose Hooks Work Phone: [facility] Work Phone: 09-18-2021 08:49-0400 Heart rate 59 /min Dr. Jose Hooks Work Phone: [facility] Work Phone: 09-18-2021 08:49-0400 Respiratory rate 18 /min Dr. Jose Hooks Work Phone: [facility] Work Phone: 09-18-2021 08:49-0400 SaO2% (BldA) [Mass fraction] 98 % Dr. Jose Hooks Work Phone: [facility] Work Phone: 09-18-2021 08:49-0400 Systolic blood pressure 101 mm[Hg] Dr. Jose Hooks Work Phone: [facility] Work Phone: 09-04-2021 10:29-0400 Body weight 79.[address] Jose Hooks Work Phone: [facility] Work Phone: 09-04-2021 10:29-0400 Body height 180.[address] Javi Bates Work Phone: [facility] Work Phone: 09-04-2021 10:29-0400 Body weight 79.[address] Javi Bates Work Phone: [facility] Work Phone: 08-05-2021 13:10-0500 Body weight 79.[address] Jose Hooks Work Phone: [facility] Work Phone: 08-05-2021 12:10-0500 Body height 180.[address] Javi Bates Work Phone: [facility] Work Phone: 08-05-2021 12:10-0500 Body weight 79.[address] Javi Bates Work Phone: [facility] Work Phone: 07-09-2021 08:15-0500 Body weight 77.[address] Javi Bates Work Phone: [facility] Work Phone: 07-09-2021 07:40-0500 Body mass index (BMI) [Ratio] 23.7 kg/m2 Dr. Javi Bates Work Phone: [facility] Work Phone: 07-09-2021 07:40-0500 Body temperature 97.8 [degF] Dr. Javi Bates Work Phone: [facility] Work Phone: 07-09-2021 07:40-0500 Diastolic blood pressure 71 mm[Hg] Dr. Javi Bates Work Phone: [facility] Work Phone: 07-09-2021 07:40-0500 Heart rate 57 /min Dr. Javi Bates Work Phone: [facility] Work Phone: 07-09-2021 07:40-0500 Respiratory rate 18 /min Dr. Javi Bates Work Phone: [facility] Work Phone: 07-09-2021 07:40-0500 SaO2% (BldA) [Mass fraction] 97 % Dr. Javi Bates Work Phone: [facility] Work Phone: 07-09-2021 07:40-0500 Systolic blood pressure 109 mm[Hg] Dr. Javi Bates Work Phone: [facility] Work Phone: 06-27-2021 08:58-0500 Body mass index (BMI) [Ratio] 23.7 kg/m2 Dr. Javi Bates Work Phone: [facility] Work Phone: 06-27-2021 08:58-0500 Body weight 77.[address] Javi Bates Work Phone: [facility] Work Phone: 06-27-2021 08:58-0500 Diastolic blood pressure 71 mm[Hg] Dr. Javi Bates Work Phone: [facility] Work Phone: 06-27-2021 08:58-0500 Heart rate 57 /min Dr. Javi Bates Work Phone: [facility] Work Phone: 06-27-2021 08:58-0500 Respiratory rate 18 /min Dr. Javi Bates Work Phone: [facility] Work Phone: 06-27-2021 08:58-0500 SaO2% (BldA) [Mass fraction] 97 % Dr. Javi Bates Work Phone: [facility] Work Phone: 06-27-2021 08:58-0500 Systolic blood pressure 109 mm[Hg] Dr. Javi Bates Work Phone: [facility] Work Phone: 05-16-2021 14:27-0500 Diastolic blood pressure 94 mm[Hg] Dr. Javi Bates Work Phone: [facility] Work Phone: 05-16-2021 14:27-0500 Heart rate 87 /min Dr. Javi Bates Work Phone: [facility] [facility] Work Phone: 05-16-2021 14:27-0500 Respiratory rate 15 /min Dr. Javi Bates Work Phone: [facility] Work Phone: 05-16-2021 14:27-0500 SaO2% (BldA) [Mass fraction] 99 % Dr. Javi Bates Work Phone: [facility] Work Phone: 05-16-2021 14:27-0500 Systolic blood pressure 138 mm[Hg] Dr. Javi Bates Work Phone: [facility] Work Phone: 05-16-2021 11:05-0500 Body mass index (BMI) [Ratio] 23.3 kg/m2 Dr. Javi Bates Work Phone: [facility] Work Phone: 05-16-2021 11:05-0500 Body temperature 97.7 [degF] Dr. Javi Bates Work Phone: [facility] Work Phone: 05-16-2021 11:05-0500 Body weight [address] Javi Bates Work Phone: [facility] Work Phone: 05-16-2021 10:05-0500 Body weight 75.[address] Javi Bates Work Phone: [facility] Work Phone: 05-16-2021 10:05-0500 Diastolic blood pressure 78 mm[Hg] Dr. Javi Bates Work Phone: [facility] Work Phone: 05-16-2021 10:05-0500 Heart rate 60 /min Dr. Javi Bates Work Phone: [facility] Work Phone: 05-16-2021 10:05-0500 Respiratory rate 18 /min Dr. Javi Bates Work Phone: [facility] Work Phone: 05-16-2021 10:05-0500 Systolic blood pressure 114 mm[Hg] Dr. Javi Bates Work Phone: [facility] Work Phone: 05-03-2021 13:41-0500 Body temperature 96.5 [degF] Dr. Javi Bates Work Phone: [facility] Work Phone: 05-03-2021 13:41-0500 Diastolic blood pressure 68 mm[Hg] Dr. Javi Bates Work Phone: [facility] Work Phone: 05-03-2021 13:41-0500 Heart rate 69 /min Dr. Javi Bates Work Phone: [facility] Work Phone: 05-03-2021 13:41-0500 Respiratory rate 16 /min Dr. Javi Bates Work Phone: [facility] Work Phone: 05-03-2021 13:41-0500 SaO2% (BldA) [Mass fraction] 98 % Dr. Javi Bates Work Phone: [facility] Work Phone: 05-03-2021 13:41-0500 Systolic blood pressure 112 mm[Hg] Dr. Javi Bates Work Phone: [facility] Work Phone: 05-03-2021 06:56-0500 Body mass index (BMI) [Ratio] 21.9 kg/m2 Dr. Javi Bates Work Phone: [facility] Work Phone: 05-03-2021 06:56-0500 Body weight 73.[address] Javi Bates Work Phone: [facility] Work Phone: 10-31-2020 14:10-0400 Body mass index (BMI) [Ratio] 23.7 kg/m2 Dr. Javi Bates Work Phone: [facility] Work Phone: 04-27-2017 08:52-0500 BMI (Body Mass Index) 25.82 kg/m2 Cordelia Rivera [facility] Work Phone: 04-27-2017 08:52-0500 BP Diastolic 81 mm[Hg] Cordelia Rivera [facility] Work Phone: 04-27-2017 08:52-0500 BP Systolic 131 mm[Hg] Cordelia Rivera [facility] Work Phone: 04-27-2017 08:52-0500 Height 177.8 cm Cordelia [facility] Work Phone: 04-27-2017 08:52-0500 Pulse (Heart Rate) 64 /min [facility] Work Phone: 04-27-2017 08:52-0500 Respiratory Rate 18 /min [facility] Work Phone: 04-27-2017 08:52-0500 Weight 81.65 kg [facility] Work Phone: 06-13-2016 11:52-0500 BSA (Body Surface Area) 2.03 m2 [facility] Work Phone: 05-05-2016 12:59-0500 BP Diastolic 90 mm[Hg] [facility] Work Phone: 05-05-2016 12:59-0500 BP Systolic 130 mm[Hg] [facility] Work Phone: 12-05-2015 13:09-0400 Body height 177.8 cm Myrna Rivas RN [facility]; [facility] Work Phone: 12-05-2015 13:09-0400 Body mass index (BMI) [Ratio] 25.84 kg/m2 Myrna Rivas RN [facility]; [facility] Work Phone: 12-05-2015 13:09-0400 Body surface area Derived from formula 2 m2 Myrna Rivas RN [facility]; [facility] Work Phone: 12-05-2015 13:09-0400 Body temperature 98.3 [degF] Myrna Rivas RN [facility]; [facility] Work Phone: 12-05-2015 13:09-0400 Body weight 81.7 kg Myrna Rivas RN [facility]; [facility] Work Phone: 12-05-2015 13:09-0400 Diastolic blood pressure 72 mm[Hg] Myrna Rivas RN [facility]; [facility] Work Phone: 12-05-2015 13:09-0400 Heart rate 66 /min Myrna Rivas RN [facility]; [facility] Work Phone: 12-05-2015 13:09-0400 Respiratory rate 18 /min Myrna Rivas RN [facility]; [facility] Work Phone: 12-05-2015 13:09-0400 SaO2% (BldA) [Mass fraction] 98 % Myrna Rivas RN [facility]; [facility] Work Phone: 12-05-2015 13:09-0400 Systolic blood pressure 120 mm[Hg] Myrna Rivas RN [facility]; [facility] Work Phone: 11-21-2015 13:49-0400 Body height 177.8 cm Myrna Rivas RN [facility]; [facility] Work Phone: 11-21-2015 13:49-0400 Body mass index (BMI) [Ratio] 25.88 kg/m2 Myrna Rivas RN [facility]; [facility] Work Phone: 11-21-2015 13:49-0400 Body surface area Derived from formula 2 m2 Myrna Rivas RN [facility]; [facility] Work Phone: 11-21-2015 13:49-0400 Body weight 81.82 kg Myrna Rivas RN [facility]; [facility] Work Phone: 11-21-2015 13:49-0400 Diastolic blood pressure 80 mm[Hg] Myrna Rivas RN [facility]; [facility] Work Phone: 11-21-2015 13:49-0400 Heart rate 80 /min Myrna Rivas RN [facility]; [facility] Work Phone: 11-21-2015 13:49-0400 Respiratory rate 18 /min Myrna Rivas RN [facility]; [facility] Work Phone: 11-21-2015 13:49-0400 SaO2% (BldA) [Mass fraction] 96 % Myrna Rivas RN [facility]; [facility] Work Phone: 11-21-2015 13:49-0400 Systolic blood pressure 118 mm[Hg] Myrna Rivas RN [facility]; [facility] Work Phone: 11-07-2015 13:17-0400 Body height 177.8 cm Myrna Rivas RN [facility]; [facility] Work Phone: 11-07-2015 13:17-0400 Body mass index (BMI) [Ratio] 26.31 kg/m2 Myrna Rivas RN [facility]; [facility] Work Phone: 11-07-2015 13:17-0400 Body surface area Derived from formula 2.01 m2 Myrna Rivas RN [facility]; [facility] Work Phone: 11-07-2015 13:17-0400 Body weight 83.18 kg Myrna Rivas RN [facility]; [facility] Work Phone: 11-07-2015 13:17-0400 Diastolic blood pressure 82 mm[Hg] Myrna Rivas RN [facility]; [facility] Work Phone: 11-07-2015 13:17-0400 Heart rate 70 /min Myrna Rivas RN [facility]; [facility] Work Phone: 11-07-2015 13:17-0400 Respiratory rate 18 /min [facility]; [facility] Work Phone: 11-07-2015 13:17-0400 SaO2% (BldA) [Mass fraction] 97 % Myrna Rivas RN [facility]; [facility] Work Phone: 11-07-2015 13:17-0400 Systolic blood pressure 158 mm[Hg] Myrna Rivas RN [facility]; [facility] Work Phone: 10-24-2015 12:25-0400 Body height 177.8 cm Jonna Richards [facility]; [facility] Work Phone: 10-24-2015 12:25-0400 Body mass index (BMI) [Ratio] 25.77 kg/m2 Jonna Richards [facility]; [facility] Work Phone: 10-24-2015 12:25-0400 Body surface area Derived from formula 1.99 m2 Jonna Richards [facility]; [facility] Work Phone: 10-24-2015 12:250400 Body weight 81.47 kg Jonna Richards [facility]; [facility] Work Phone: 10-24-2015 12:25-0400 Diastolic blood pressure 72 mm[Hg] Jonna Richards [facility]; [facility] Work Phone: 10-24-2015 12:25-0400 Heart rate 72 /min Jonna Richards [facility]; [facility] Work Phone: 10-24-2015 12:250400 Respiratory rate 18 /min Jonna Richards [facility]; [facility] Work Phone: 10-24-2015 12:25-0400 SaO2% (BldA) [Mass fraction] 95 % Jonna Richards [facility]; [facility] Work Phone: 10-24-2015 12:25-0400 Systolic blood pressure 124 mm[Hg] Jonna Richards [facility]; [facility] Work Phone: 10-15-2015 13:33-0400 Body height 177.8 cm Stefano Emoctavio [facility]; [facility] Work Phone: 10-15-2015 13:33-0400 Body mass index (BMI) [Ratio] 26.2 kg[facility]; [facility] Work Phone: 10-15-2015 13:33-0400 Body surface area Derived from formula 2.01 m2 Stefano Emoctavio [facility]; [facility] Work Phone: 10-15-2015 13:33-0400 Body temperature 98 [degF] Stefano Emoctavio [facility]; [facility] Work Phone: 10-15-2015 13:33-0400 Body weight 82.83 kg [place] Emoct[facility]; [facility] Work Phone: 10-15-2015 13:33-0400 Diastolic blood pressure 94 mm[Hg] Stefano Truong [facility]; [facility] Work Phone: 10-15-2015 13:33-0400 Heart rate 90 /min Stefano Truong [facility]; [facility] Work Phone: 10-15-2015 13:33-0400 Respiratory rate 16 /min Stefano Truong [facility]; [facility] Work Phone: 10-15-2015 13:33-0400 SaO2% (BldA) [Mass fraction] 93 % Stefano Truong [facility]; [facility] Work Phone: 10-15-2015 13:33-0400 Systolic blood pressure 128 mm[Hg] Stefano Truong [facility]; [facility] Work Phone: 10-08-2015 15:51-0400 Diastolic blood pressure 82 mm[Hg] Sherron A Fast DO Work Phone: [facility]; [facility] Work Phone: 10-08-2015 15:51-0400 Systolic blood pressure 160 mm[Hg] Sherron A Fast DO Work Phone: [facility]; [facility] Work Phone: 10-08-2015 14:38-0400 Body height 177.8 cm Sherron A Fast DO Work Phone: [facility]; [facility] Work Phone: 10-08-2015 14:38-0400 Body mass index (BMI) [Ratio] 27.41 kg/m2 Sherron A Fast DO Work Phone: [facility]; [facility] Work Phone: 10-08-2015 14:38-0400 Body surface area Derived from formula 2.05 m2 Sherron A Fast DO Work Phone: [facility]; [facility] Work Phone: 10-08-2015 14:38-0400 Body temperature 98.3 [degF] Sherron A Fast DO Work Phone: [facility]; [facility] Work Phone: 10-08-2015 14:38-0400 Body weight 86.64 kg Sherron A Fast DO Work Phone: [facility]; [facility] Work Phone: 10-08-2015 14:38-0400 Diastolic blood pressure 104 mm[Hg] Sherron A Fast DO Work Phone: [facility]; [facility] Work Phone: 10-08-2015 14:38-0400 Heart rate 70 /min Sherron A Fast DO Work Phone: [facility]; [facility] Work Phone: 10-08-2015 14:38-0400 Respiratory rate 15 /min Sherron A Fast DO Work Phone: [facility]; [facility] Work Phone: 10-08-2015 14:38-0400 SaO2% (BldA) [Mass fraction] 95 % Sherron A Fast DO Work Phone: [facility]; [facility] Work Phone: 10-08-2015 14:38-0400 Systolic blood pressure 164 mm[Hg] Sherron A Fast DO Work Phone: [facility]; [facility] Work Phone: 10-03-2015 09:54-0400 Body height 177.8 cm Jackie Darby [facility]; [facility] Work Phone: 10-03-2015 09:54-0400 Body mass index (BMI) [Ratio] 27.41 kg/m2 Jackie Darby [facility]; [facility] Work Phone: 10-03-2015 09:54-0400 Body surface area Derived from formula 2.05 m2 Jackie Darby [facility]; [facility] Work Phone: 10-03-2015 09:54-0400 Body temperature 98.4 [degF] Jackie Darby [facility]; [facility] Work Phone: 10-03-2015 09:54-0400 Body weight 86.64 kg Jackie Darby [facility]; [facility] Work Phone: 10-03-2015 09:54-0400 Diastolic blood pressure 90 mm[Hg] Jackie Darby [facility]; [facility] Work Phone: 10-03-2015 09:54-0400 Heart rate 74 /min Jackie Gaytan [facility]; [facility] Work Phone: 10-03-2015 09:54-0400 Respiratory rate 15 /min Jackie Gaytan [facility]; [facility] Work Phone: 10-03-2015 09:54-0400 SaO2% (BldA) [Mass fraction] 96 % Jackie Gaytan [facility]; [facility] Work Phone: 10-03-2015 09:54-0400 Systolic blood pressure 132 mm[Hg] Jackie Gaytan [facility]; [facility] Work Phone: 08-08-2015 10:45-0500 Body height 177.8 cm Jackie Gaytan [facility]; [facility] Work Phone: 08-08-2015 10:45-0500 Body mass index (BMI) [Ratio] 27.41 kg/m2 Jackie Gaytan [facility]; [facility] Work Phone: 08-08-2015 10:45-0500 Body surface area Derived from formula 2.05 m2 Jackie Gaytan [facility]; [facility] Work Phone: 08-08-2015 10:45-0500 Body temperature 98.6 [degF] Jackie Gaytan [facility]; [facility] Work Phone: 08-08-2015 10:45-0500 Body weight 86.64 kg Jackie Gaytan [facility]; [facility] Work Phone: 08-08-2015 10:45-0500 Diastolic blood pressure 80 mm[Hg] Jackie Darby [facility]; [facility] Work Phone: 08-08-2015 10:45-0500 Heart rate 94 /min Jackie Darby [facility]; [facility] Work Phone: 08-08-2015 10:45-0500 Respiratory rate 16 /min Jackie Gaytan [facility]; [facility] Work Phone: 08-08-2015 10:45-0500 SaO2% (BldA) [Mass fraction] 96 % Jackie Gaytan [facility]; [facility] Work Phone: 08-08-2015 10:45-0500 Systolic blood pressure 126 mm[Hg] Jackie Gaytan [facility]; [facility] Work Phone: 06-13-2015 13:27-0500 Body height 177.8 cm Jackie Gaytan [facility]; [facility] Work Phone: 06-13-2015 13:27-0500 Body mass index (BMI) [Ratio] 27.26 kg/m2 Jackie Gaytan [facility]; [facility] Work Phone: 06-13-2015 13:27-0500 Body surface area Derived from formula 2.04 m2 Jackie Gaytan [facility]; [facility] Work Phone: 06-13-2015 13:27-0500 Body temperature 98.5 [degF] Jackie Gaytan [facility]; [facility] Work Phone: 06-13-2015 13:27-0500 Body weight 86.18 kg Jackie Gaytan [facility]; [facility] Work Phone: 06-13-2015 13:27-0500 Diastolic blood pressure 84 mm[Hg] Jackie Gaytan [facility]; [facility] Work Phone: 06-13-2015 13:27-0500 Heart rate 96 /min Jackie Gaytan [facility]; [facility] Work Phone: 06-13-2015 13:27-0500 Respiratory rate 16 /min Jackie Darby [facility]; [facility] Work Phone: 06-13-2015 13:27-0500 SaO2% (BldA) [Mass fraction] 95 % Jackie Gaytan [facility]; [facility] Work Phone: 06-13-2015 13:27-0500 Systolic blood pressure 132 mm[Hg] Jackie Darby [facility]; [facility] Work Phone: 01-24-2015 13:33-0400 Body height 177.8 cm Jackie Gaytan [facility]; [facility] Work Phone: 01-24-2015 13:33-0400 Body mass index (BMI) [Ratio] 26.26 kg/m2 Jackie Gaytan [facility]; [facility] Work Phone: 01-24-2015 13:33-0400 Body surface area Derived from formula 2.01 m2 Jackie Gaytan [facility]; [facility] Work Phone: 01-24-2015 13:33-0400 Body temperature 97.2 [degF] Jackie Gaytan [facility]; [facility] Work Phone: 01-24-2015 13:33-0400 Body weight 83.01 kg Jackie Gaytan [facility]; [facility] Work Phone: 01-24-2015 13:33-0400 Diastolic blood pressure 88 mm[Hg] Jackie Gaytan [facility]; [facility] Work Phone: 01-24-2015 13:33-0400 Heart rate 92 /min Jackie Gaytan [facility]; [facility] Work Phone: 01-24-2015 13:33-0400 Respiratory rate 16 /min Jackie Gaytan [facility]; [facility] Work Phone: 01-24-2015 13:33-0400 Systolic blood pressure 124 mm[Hg] Jackie Gaytan [facility]; [facility] Work Phone: 10-31-2014 10:31-0400 Body height 177.8 cm Yulisa Slarb [employer] [facility]; [facility] Work Phone: 10-31-2014 10:31-0400 Body mass index (BMI) [Ratio] 26.13 kg/m2 Yulisa Slarb [employer] [facility]; [facility] Work Phone: 10-31-2014 10:31-0400 Body surface area Derived from formula 2.01 m2 Yulisa Slarb [employer] [facility]; [facility] Work Phone: 10-31-2014 10:31-0400 Body temperature 97.6 [degF] Yulisa Slarb [employer] [facility]; [facility] Work Phone: 10-31-2014 10:31-0400 Body weight 82.61 kg Yulisa Slarb [employer] [facility]; [facility] Work Phone: 10-31-2014 10:31-0400 Diastolic blood pressure 80 mm[Hg] Yulisa Slarb [employer] [facility]; [facility] Work Phone: 10-31-2014 10:31-0400 Heart rate 94 /min Yulisa Slarb [employer] [facility]; [facility] Work Phone: 10-31-2014 10:31-0400 Respiratory rate 16 /min Yulisa Slarb [employer] [facility]; [facility] Work Phone: 10-31-2014 10:31-0400 SaO2% (BldA) [Mass fraction] 97 % Yulisa Slarb [employer] [facility]; [facility] Work Phone: 10-31-2014 10:31-0400 Systolic blood pressure 132 mm[Hg] Yulisa Slarb [employer] [facility]; [facility] Work Phone: 10-05-2014 09:18-0400 Body height 177.8 cm Myrna Rivas RN [facility]; [facility] Work Phone: 10-05-2014 09:18-0400 Body mass index (BMI) [Ratio] 26.4 kg/m2 Myrna Rivas RN [facility]; [facility] Work Phone: 10-05-2014 09:18-0400 Body surface area Derived from formula 2.01 m2 Myrna Rivas RN [facility]; [facility] Work Phone: 10-05-2014 09:18-0400 Body temperature 97.8 [degF] Myrna Rivas RN [facility]; [facility] Work Phone: 10-05-2014 09:18-0400 Body weight 83.46 kg Myrna Rivas RN [facility]; [facility] Work Phone: 10-05-2014 09:18-0400 Diastolic blood pressure 78 mm[Hg] Myrna Rivas RN [facility]; [facility] Work Phone: 10-05-2014 09:18-0400 Heart rate 110 /min Myrna Rivas RN [facility]; [facility] Work Phone: 10-05-2014 09:18-0400 Respiratory rate 18 /min Myrna Rivas RN [facility]; [facility] Work Phone: 10-05-2014 09:18-0400 SaO2% (BldA) [Mass fraction] 96 % Myrna Rivas RN [facility]; [facility] Work Phone: 10-05-2014 09:18-0400 Systolic blood pressure 118 mm[Hg] Myrna Rivas RN [facility]; [facility] Work Phone: 09-27-2014 13:27-0400 Body height 177.8 cm Jackie Darby [facility]; [facility] Work Phone: 09-27-2014 13:27-0400 Body mass index (BMI) [Ratio] 26.4 kg/m2 Jackie Darby [facility]; [facility] Work Phone: 09-27-2014 13:27-0400 Body surface area Derived from formula 2.01 m2 Jackie Darby [facility]; [facility] Work Phone: 09-27-2014 13:27-0400 Body temperature 97.6 [degF] Jackie Gaytan [facility]; [facility] Work Phone: 09-27-2014 13:27-0400 Body weight 83.46 kg Jackie Lukas [facility]; [facility] Work Phone: 09-27-2014 13:27-0400 Diastolic blood pressure 80 mm[Hg] Jackie Gaytan [facility]; [facility] Work Phone: 09-27-2014 13:27-0400 Heart rate 104 /min Jackie Gaytan [facility]; [facility] Work Phone: 09-27-2014 13:27-0400 Respiratory rate 16 /min Jackie Gaytan [facility]; [facility] Work Phone: 09-27-2014 13:27-0400 Systolic blood pressure 132 mm[Hg] Jackie Gaytan [facility]; [facility] Work Phone: 06-27-2014 09:47-0500 Body height 177.8 cm Jackie Gaytan [facility]; [facility] Work Phone: 06-27-2014 09:47-0500 Body mass index (BMI) [Ratio] 27.26 kg/m2 Jackie Gaytan [facility]; [facility] Work Phone: 06-27-2014 09:47-0500 Body surface area Derived from formula 2.04 m2 Jackie Gaytan [facility]; [facility] Work Phone: 06-27-2014 09:47-0500 Body temperature 97.6 [degF] Jackie Gaytan [facility]; [facility] Work Phone: 06-27-2014 09:47-0500 Body weight 86.18 kg Jackie Darby [facility]; [facility] Work Phone: 06-27-2014 09:47-0500 Diastolic blood pressure 82 mm[Hg] Jackie Flinner [facility]; [facility] Work Phone: 06-27-2014 09:47-0500 Heart rate 94 /min Jackie Gaytan [facility]; [facility] Work Phone: 06-27-2014 09:47-0500 Respiratory rate 16 /min Jackie Lukas [facility]; [facility] Work Phone: 06-27-2014 09:47-0500 Systolic blood pressure 136 mm[Hg] Jackie Gaytan [facility]; [facility] Work Phone: 05-03-2014 10:34-0500 Pulse (Heart Rate) Cordelia Rivera [facility] Work Phone: 02-24-2014 10:05-0400 Body height 177.8 cm Jackie Gaytan [facility]; [facility] Work Phone: 02-24-2014 10:05-0400 Body mass index (BMI) [Ratio] 26.54 kg/m2 Jackie Gaytan [facility]; [facility] Work Phone: 02-24-2014 10:05-0400 Body surface area Derived from formula 2.02 m2 Jackie Gaytan [facility]; [facility] Work Phone: 02-24-2014 10:05-0400 Body temperature 95.8 [degF] Jackie Gaytan [facility]; [facility] Work Phone: 02-24-2014 10:05-0400 Body weight 83.92 kg Jackie Gaytan [facility]; [facility] Work Phone: 02-24-2014 10:05-0400 Diastolic blood pressure 96 mm[Hg] Jackie Gaytan [facility]; [facility] Work Phone: 02-24-2014 10:05-0400 Heart rate 70 /min Jackie Gaytan [facility]; [facility] Work Phone: 02-24-2014 10:05-0400 Respiratory rate 16 /min Jackie Gaytan [facility]; [facility] Work Phone: 02-24-2014 10:05-0400 Systolic blood pressure 130 mm[Hg] Jackie Lukas [facility]; [facility] Work Phone: 10-21-2013 09:47-0400 Body height 177.8 cm Faith Hill [facility]; [facility] Work Phone: 10-21-2013 09:47-0400 Body mass index (BMI) [Ratio] 26.26 kg/m2 [facility]; [facility] Work Phone: 10-21-2013 09:47-0400 Body surface area Derived from formula 2.01 m2 Faithtamika Hill [facility]; [facility] Work Phone: 10-21-2013 09:47-0400 Body temperature 96.8 [degF] Faith Jane[facility]rendaanand [facility]; [facility] Work Phone: 10-21-2013 09:47-0400 Body weight 83.01 kg [facility]; [facility] Work Phone: 10-21-2013 09:47-0400 Diastolic blood pressure 80 mm[Hg] [facility]; [facility] Work Phone: 10-21-2013 09:47-0400 Heart rate 83 /min [facility]; [facility] Work Phone: 10-21-2013 09:47-0400 Respiratory rate 16 /min [facility]; [facility] Work Phone: 10-21-2013 09:47-0400 SaO2% (BldA) [Mass fraction] 98 % [facility]; [facility] Work Phone: 10-21-2013 09:47-0400 Systolic blood pressure 122 mm[Hg] [facility] Work Phone: 06-30-2013 09:41-0500 Body height 177.8 cm Jackie Gaytan [facility]; [facility] Work Phone: 06-30-2013 09:41-0500 Body mass index (BMI) [Ratio] 27.12 kg/m2 Jackie Gaytan [facility]; [facility] Work Phone: 06-30-2013 09:41-0500 Body surface area Derived from formula 2.04 m2 Jackie Gaytan [facility]; [facility] Work Phone: 06-30-2013 09:41-0500 Body temperature 97.1 [degF] Jackie Gaytan [facility]; [facility] Work Phone: 06-30-2013 09:41-0500 Body weight 85.73 kg Jackie Gaytan [facility]; [facility] Work Phone: 06-30-2013 09:41-0500 Diastolic blood pressure 82 mm[Hg] Jackie Gaytan [facility]; [facility] Work Phone: 06-30-2013 09:41-0500 Heart rate 78 /min Jackie Gaytan [facility]; [facility] Work Phone: 06-30-2013 09:41-0500 Respiratory rate 18 /min Jackie Gaytan [facility]; [facility] Work Phone: 06-30-2013 09:41-0500 Systolic blood pressure 128 mm[Hg] Jackie Gaytan [facility]; [facility] Work Phone: 02-22-2013 09:53-0400 Body height 177.8 cm Jackie Gaytan [facility]; [facility] Work Phone: 02-22-2013 09:53-0400 Body mass index (BMI) [Ratio] 26.4 kg/m2 Jackie Gaytan [facility]; [facility] Work Phone: 02-22-2013 09:53-0400 Body surface area Derived from formula 2.01 m2 Jackie Darby [facility]; [facility] Work Phone: 02-22-2013 09:53-0400 Body temperature 97.2 [degF] Jackie Gaytan [facility]; [facility] Work Phone: 02-22-2013 09:53-0400 Body weight 83.46 kg Jackie Gaytan [facility]; [facility] Work Phone: 02-22-2013 09:53-0400 Diastolic blood pressure 78 mm[Hg] Jackie Gaytan [facility]; [facility] Work Phone: 02-22-2013 09:53-0400 Heart rate 70 /min Jackie Gaytan [facility]; [facility] Work Phone: 02-22-2013 09:53-0400 Respiratory rate 16 /min Jackie Gaytan [facility]; [facility] Work Phone: 02-22-2013 09:53-0400 Systolic blood pressure 122 mm[Hg] Jackie Gaytan [facility]; [facility] Work Phone: 10-22-2012 10:32-0400 Body height 177.8 cm Jackie Gaytan [facility]; [facility] Work Phone: 10-22-2012 10:32-0400 Body mass index (BMI) [Ratio] 26.54 kg/m2 Jackie Gaytan [facility]; [facility] Work Phone: 10-22-2012 10:32-0400 Body surface area Derived from formula 2.02 m2 Jackie Gaytan [facility]; [facility] Work Phone: 10-22-2012 10:32-0400 Body temperature 96.3 [degF] Jackie Gaytan [facility]; [facility] Work Phone: 10-22-2012 10:32-0400 Body weight 83.92 kg Jackie Gaytan [facility]; [facility] Work Phone: 10-22-2012 10:32-0400 Diastolic blood pressure 88 mm[Hg] Jackie Gaytan [facility]; [facility] Work Phone: 10-22-2012 10:32-0400 Heart rate 68 /min Jackie Gaytan [facility]; [facility] Work Phone: 10-22-2012 10:32-0400 Respiratory rate 16 /min Jackie Gaytan [facility]; [facility] Work Phone: 10-22-2012 10:32-0400 Systolic blood pressure 128 mm[Hg] Jackie Gaytan [facility]; [facility] Work Phone: 06-21-2012 13:36-0500 Body height 177.8 cm Teresa Vinson LPN [facility]; [facility] Work Phone: 06-21-2012 13:36-0500 Body mass index (BMI) [Ratio] 26.4 kg/m2 Teresa Vinson LPN [facility]; [facility] Work Phone: 06-21-2012 13:36-0500 Body surface area Derived from formula 2.01 m2 Teresa Vinson LPN [facility]; [facility] Work Phone: 06-21-2012 13:36-0500 Body temperature 97.7 [degF] Teresa Vinson LPN [facility]; [facility] Work Phone: 06-21-2012 13:36-0500 Body weight 83.46 kg Teresa Vinson LPN [facility]; [facility] Work Phone: 06-21-2012 13:36-0500 Diastolic blood pressure 72 mm[Hg] Teresa Vinson LPN [facility]; [facility] Work Phone: 06-21-2012 13:36-0500 Heart rate 78 /min Teresa Vinson LPN [facility]; [facility] Work Phone: 06-21-2012 13:36-0500 Respiratory rate 18 /min Teresa Vinson LPN [facility]; [facility] Work Phone: 06-21-2012 13:36-0500 Systolic blood pressure 100 mm[Hg] Teresa Vinson LPN [facility]; [facility] Work Phone: 03-19-2012 13:15-0400 Body height 177.8 cm Jackie Gaytan [facility]; [facility] Work Phone: 03-19-2012 13:15-0400 Body mass index (BMI) [Ratio] 26.4 kg/m2 Jackie Gaytan [facility]; [facility] Work Phone: 03-19-2012 13:15-0400 Body surface area Derived from formula 2.01 m2 Jackie Gaytan [facility]; [facility] Work Phone: 03-19-2012 13:15-0400 Body temperature 97.3 [degF] Jackie Gaytan [facility]; [facility] Work Phone: 03-19-2012 13:15-0400 Body weight 83.46 kg Jackie Gaytan [facility]; [facility] Work Phone: 03-19-2012 13:15-0400 Diastolic blood pressure 62 mm[Hg] Jackie Gaytan [facility]; [facility] Work Phone: 03-19-2012 13:15-0400 Heart rate 84 /min Jackie Gaytan [facility]; [facility] Work Phone: 03-19-2012 13:15-0400 Respiratory rate 16 /min Jackie Gaytan [facility]; [facility] Work Phone: 03-19-2012 13:15-0400 Systolic blood pressure 102 mm[Hg] Jackie Gaytan [facility]; [facility] Work Phone: 12-09-2011 14:34-0400 Body height 177.8 cm Kanika Martinez RN [facility]; [facility] Work Phone: 12-09-2011 14:34-0400 Body mass index (BMI) [Ratio] 26.11 kg/m2 Kanika Martinez RN [facility]; [facility] Work Phone: 12-09-2011 14:34-0400 Body surface area Derived from formula 2.01 m2 Kanika Martinez RN [facility]; [facility] Work Phone: 12-09-2011 14:34-0400 Body temperature 98.1 [degF] Kanika Martinez RN [facility]; [facility] Work Phone: 12-09-2011 14:34-0400 Body weight 82.56 kg Kanika Martinez RN [facility]; [facility] Work Phone: 12-09-2011 14:34-0400 Diastolic blood pressure 82 mm[Hg] Kanika Martinez RN [facility]; [facility] Work Phone: 12-09-2011 14:34-0400 Heart rate 80 /min Kanika Martinez RN [facility]; [facility] Work Phone: 12-09-2011 14:34-0400 Respiratory rate 20 /min Kanika Martinez RN [facility]; [facility] Work Phone: 12-09-2011 14:34-0400 Systolic blood pressure 122 mm[Hg] Kanika Martinez RN [facility]; [facility] Work Phone: 09-19-2011 13:07-0400 Body height 177.8 cm Jackie Darby [facility]; [facility] Work Phone: 09-19-2011 13:07-0400 Body mass index (BMI) [Ratio] 26.26 kg/m2 Jackie Darby [facility]; [facility] Work Phone: 09-19-2011 13:07-0400 Body surface area Derived from formula 2.01 m2 Jackie Darby [facility]; [facility] Work Phone: 09-19-2011 13:07-0400 Body temperature 96.6 [degF] Jackie Darby [facility]; [facility] Work Phone: 09-19-2011 13:07-0400 Body weight 83.01 kg Jackie Gaytan [facility]; [facility] Work Phone: 09-19-2011 13:07-0400 Diastolic blood pressure 90 mm[Hg] Jackie Gaytan [facility]; [facility] Work Phone: 09-19-2011 13:07-0400 Heart rate 76 /min Jackie Gaytan [facility]; [facility] Work Phone: 09-19-2011 13:07-0400 Respiratory rate 16 /min Jackie Gaytan [facility]; [facility] Work Phone: 09-19-2011 13:07-0400 Systolic blood pressure 128 mm[Hg] Jackie Gaytan [facility]; [facility] Work Phone: 05-20-2011 13:03-0500 Body height 177.8 cm Jackie Gaytan [facility]; [facility] Work Phone: 05-20-2011 13:03-0500 Body mass index (BMI) [Ratio] 26.54 kg/m2 Jackie Gaytan [facility]; [facility] Work Phone: 05-20-2011 13:03-0500 Body surface area Derived from formula 2.02 m2 Jackie Gaytan [facility]; [facility] Work Phone: 05-20-2011 13:03-0500 Body temperature 96.7 [degF] Jackie Gaytan [facility]; [facility] Work Phone: 05-20-2011 13:03-0500 Body weight 83.92 kg Jackie Gaytan [facility]; [facility] Work Phone: 05-20-2011 13:03-0500 Diastolic blood pressure 92 mm[Hg] Jackie Gaytan [facility]; [facility] Work Phone: 05-20-2011 13:03-0500 Heart rate 78 /min Jackie Darby [facility]; [facility] Work Phone: 05-20-2011 13:03-0500 Respiratory rate 16 /min Jackie Lukas [facility]; [facility] Work Phone: 05-20-2011 13:03-0500 Systolic blood pressure 132 mm[Hg] Jackie Gaytan [facility]; [facility] Work Phone: 01-15-2011 13:30-0400 Body height 177.8 cm Jackie Gaytan [facility]; [facility] Work Phone: 01-15-2011 13:30-0400 Body mass index (BMI) [Ratio] 25.4 kg/m2 Jackie Gaytan [facility]; [facility] Work Phone: 01-15-2011 13:30-0400 Body surface area Derived from formula 1.98 m2 Jackie Gaytan [facility]; [facility] Work Phone: 01-15-2011 13:30-0400 Body temperature 96.9 [degF] Jackie Gaytan [facility]; [facility] Work Phone: 01-15-2011 13:30-0400 Body weight 80.29 kg Jackie Lukas [facility]; [facility] Work Phone: 01-15-2011 13:30-0400 Diastolic blood pressure 78 mm[Hg] Jackie Gaytan [facility]; [facility] Work Phone: 01-15-2011 13:30-0400 Heart rate 80 /min Jackie Gaytan [facility]; [facility] Work Phone: 01-15-2011 13:30-0400 Respiratory rate 16 /min Jackie Gaytan [facility]; [facility] Work Phone: 01-15-2011 13:30-0400 Systolic blood pressure 114 mm[Hg] Jackie Gaytan [facility]; [facility] Work Phone: 10-11-2010 13:10-0400 Body height 177.8 cm Jackie Lukas [facility]; [facility] Work Phone: 10-11-2010 13:10-0400 Body mass index (BMI) [Ratio] 26.11 kg/m2 Jackie Lukas [facility]; [facility] Work Phone: 10-11-2010 13:10-0400 Body surface area Derived from formula 2.01 m2 Jackie Lukas [facility]; [facility] Work Phone: 10-11-2010 13:10-0400 Body temperature 97.3 [degF] Ajckie Lukas [facility]; [facility] Work Phone: 10-11-2010 13:10-0400 Body weight 82.56 kg Jackie Lukas [facility]; [facility] Work Phone: 10-11-2010 13:10-0400 Diastolic blood pressure 88 mm[Hg] Jackie Gaytan [facility]; [facility] Work Phone: 10-11-2010 13:10-0400 Heart rate 78 /min Jackie Gaytan [facility]; [facility] Work Phone: 10-11-2010 13:10-0400 Respiratory rate 16 /min Jackie Lukas [facility]; [facility] Work Phone: 10-11-2010 13:10-0400 Systolic blood pressure 122 mm[Hg] Jackie Gaytan [facility]; [facility] Work Phone: 08-28-2010 11:25-0400 Body height 182.88 cm Josi Holloway [facility]; [facility] Work Phone: 08-28-2010 11:25-0400 Body mass index (BMI) [Ratio] 25.09 kg/m2 Josi [facility]; [facility] Work Phone: 08-28-2010 11:25-0400 Body surface area Derived from formula 2.06 m2 Josi [facility]; [facility] Work Phone: 08-28-2010 11:25-0400 Body temperature 98.1 [degF] Josi Holloway [facility]; [facility] Work Phone: 08-28-2010 11:25-0400 Body weight 83.92 kg Josi Holloway [facility]; [facility] Work Phone: 08-28-2010 11:25-0400 Diastolic blood pressure 60 mm[Hg] Josi Holloway [facility]; [facility] Work Phone: 08-28-2010 11:25-0400 Heart rate 72 /min Josi Holloway [facility]; [facility] Work Phone: 08-28-2010 11:25-0400 Respiratory rate 16 /min Josi Holloway [facility]; [facility] Work Phone: 08-28-2010 11:25-0400 Systolic blood pressure 112 mm[Hg] Josi Holloway [facility]; [facility] Work Phone: 03-13-2010 13:55-0400 Body temperature 97.7 [degF] Jackie Gaytan [facility]; [facility] Work Phone: 03-13-2010 13:55-0400 Body weight 81.65 kg Jackie Gaytan [facility]; [facility] Work Phone: 03-13-2010 13:55-0400 Diastolic blood pressure 84 mm[Hg] Jackie Gaytan [facility]; [facility] Work Phone: 03-13-2010 13:55-0400 Heart rate 88 /min Jackie Gaytan [facility]; [facility] Work Phone: 03-13-2010 13:55-0400 Respiratory rate 18 /min Jackie Gaytan [facility]; [facility] Work Phone: 03-13-2010 13:55-0400 Systolic blood pressure 124 mm[Hg] Jackie Gaytan [facility]; [facility] Work Phone: 11-28-2009 13:38-0400 Body weight 83.01 kg Jackie Tillmanrito [facility]; [facility] Work Phone: 11-28-2009 13:38-0400 Diastolic blood pressure 94 mm[Hg] Jackie Lukas [facility]; [facility] Work Phone: 11-28-2009 13:38-0400 Heart rate 72 /min Jackie Lukas [facility]; [facility] Work Phone: 11-28-2009 13:38-0400 Respiratory rate 18 /min Jackie Lukas [facility]; [facility] Work Phone: 11-28-2009 13:38-0400 Systolic blood pressure 122 mm[Hg] Jackie Lukas [facility]; [facility] Work Phone: 08-22-2009 13:03-0400 Body temperature 96.6 [degF] Kanika Mast RN [facility]; [facility] Work Phone: 08-22-2009 13:03-0400 Body weight 86.18 kg Kanika Mast RN [facility]; [facility] Work Phone: 08-22-2009 13:03-0400 Diastolic blood pressure 72 mm[Hg] Kanika Mast RN [facility]; [facility] Work Phone: 08-22-2009 13:03-0400 Heart rate 80 /min Kanika Mast RN [facility]; [facility] Work Phone: 08-22-2009 13:03-0400 Respiratory rate 16 /min Kanika Mast RN [facility]; [facility] Work Phone: 08-22-2009 13:03-0400 Systolic blood pressure 98 mm[Hg] Kanika Mast RN [facility]; [facility] Work Phone: 05-22-2009 13:03-0500 Body height 0 cm Kanika Martinez RN [facility]; [facility] Work Phone: 05-22-2009 13:03-0500 Body temperature 98.1 [degF] Kanika Mast RN [facility]; [facility] Work Phone: 05-22-2009 13:03-0500 Body weight 83.01 kg Kanika Martinez RN [facility]; [facility] Work Phone: 05-22-2009 13:03-0500 Diastolic blood pressure 72 mm[Hg] Kanika Martinez RN [facility]; [facility] Work Phone: 05-22-2009 13:03-0500 Head Occipital-frontal circumference 0 cm Kanika Martinez RN [facility]; [facility] Work Phone: 05-22-2009 13:03-0500 Heart rate 92 /min Kanika Martinez RN [facility]; [facility] Work Phone: 05-22-2009 13:03-0500 Respiratory rate 16 /min Kanika Martinez RN [facility]; [facility] Work Phone: 05-22-2009 13:03-0500 Systolic blood pressure 110 mm[Hg] Kanika Martinez RN [facility]; [facility] Work Phone: 02-20-2009 13:05-0400 Body height 0 cm Jackie Gaytan [facility]; [facility] Work Phone: 02-20-2009 13:05-0400 Body temperature 98.1 [degF] Jackie Gaytan [facility]; [facility] Work Phone: 02-20-2009 13:05-0400 Body weight 83.46 kg Jackie Gaytan [facility]; [facility] Work Phone: 02-20-2009 13:05-0400 Diastolic blood pressure 70 mm[Hg] Jackie Gaytan [facility]; [facility] Work Phone: 02-20-2009 13:05-0400 Head Occipital-frontal circumference 0 cm Jackie Gaytan [facility]; [facility] Work Phone: 02-20-2009 13:05-0400 Heart rate 88 /min Jackie Gaytan [facility]; [facility] Work Phone: 02-20-2009 13:05-0400 Respiratory rate 18 /min Jackie Gaytan [facility]; [facility] Work Phone: 02-20-2009 13:05-0400 Systolic blood pressure 108 mm[Hg] Jackie Gaytan [facility]; [facility] Work Phone: 11-14-2008 13:31-0400 Body height 0 cm Jackie Gaytan [facility]; [facility] Work Phone: 11-14-2008 13:31-0400 Body temperature 97.7 [degF] Jackie Gaytan [facility]; [facility] Work Phone: 11-14-2008 13:31-0400 Body weight 83.46 kg Jackie Gaytan [facility]; [facility] Work Phone: 11-14-2008 13:31-0400 Diastolic blood pressure 92 mm[Hg] Jackie Gaytan [facility]; [facility] Work Phone: 11-14-2008 13:31-0400 Head Occipital-frontal circumference 0 cm Jackie Gaytan [facility]; [facility] Work Phone: 11-14-2008 13:31-0400 Heart rate 92 /min Jackie Gaytan [facility]; [facility] Work Phone: 11-14-2008 13:31-0400 Respiratory rate 18 /min Jackie Gaytan [facility]; [facility] Work Phone: 11-14-2008 13:31-0400 Systolic blood pressure 120 mm[Hg] Jackie Gaytan [facility]; [facility] Work Phone: 08-14-2008 13:53-0400 Body height 0 cm Sherron A Fast DO Work Phone: [facility]; [facility] Work Phone: 08-14-2008 13:53-0400 Body weight 0 kg Sherron A Fast DO Work Phone: [facility]; [facility] Work Phone: 08-14-2008 13:53-0400 Diastolic blood pressure 84 mm[Hg] Sherron A Fast DO Work Phone: [facility]; [facility] Work Phone: 08-14-2008 13:53-0400 Head Occipital-frontal circumference 0 cm Sherron A Fast DO Work Phone: [facility]; [facility] Medicine Work Phone: 08-14-2008 13:53-0400 Systolic blood pressure 125 mm[Hg] Sherron A Fast DO Work Phone: [facility]; [facility] Work Phone: 08-14-2008 13:14-0400 Body height 179.07 cm Jackie Darby [facility]; [facility] Work Phone: 08-14-2008 13:14-0400 Body mass index (BMI) [Ratio] 25.74 kg/m2 Jackie Gaytan [facility]; [facility] Work Phone: 08-14-2008 13:14-0400 Body surface area Derived from formula 2.02 m2 Jackie Gaytan [facility]; [facility] Work Phone: 08-14-2008 13:14-0400 Body temperature 95.4 [degF] Jackie Gaytan [facility]; [facility] Work Phone: 08-14-2008 13:14-0400 Body weight 82.56 kg Jackie Gaytan [facility]; [facility] Work Phone: 08-14-2008 13:14-0400 Diastolic blood pressure 90 mm[Hg] Jackie Darby [facility]; [facility] Work Phone: 08-14-2008 13:14-0400 Head Occipital-frontal circumference 0 cm Jackie Darby [facility]; [facility] Work Phone: 08-14-2008 13:14-0400 Heart rate 92 /min Jackie Flinner [facility]; [facility] Work Phone: 08-14-2008 13:14-0400 Respiratory rate 16 /min Jackie Gaytan [facility]; [facility] Work Phone: 08-14-2008 13:14-0400 Systolic blood pressure 136 mm[Hg] Jackie Gaytan [facility]; [facility] Work Phone: 07-05-2008 07:54-0500 Body height 0 cm Pamela [facility]; [facility] Work Phone: 07-05-2008 07:54-0500 Body temperature 98 [degF] Pamela [facility]; [facility] Work Phone: 07-05-2008 07:54-0500 Body weight 84.45 kg Pamela [facility]; [facility] Work Phone: 07-05-2008 07:54-0500 Diastolic blood pressure 70 mm[Hg] Pamela [facility]; [facility] Work Phone: 07-05-2008 07:54-0500 Head Occipital-frontal circumference 0 cm Pamela [facility]; [facility] Work Phone: 07-05-2008 07:54-0500 Heart rate 91 /min Pamela [facility]; [facility] Work Phone: 07-05-2008 07:54-0500 Respiratory rate 18 /min Pamela [facility]; [facility] Work Phone: 07-05-2008 07:54-0500 SaO2% (BldA) [Mass fraction] 97 % Pamela [facility]; [facility] Work Phone: 07-05-2008 07:54-0500 Systolic blood pressure 120 mm[Hg] Pamela [facility]; [facility] Work Phone: 05-30-2008 13:17-0500 Body height 182.88 cm [facility]; [facility] Work Phone: 05-30-2008 13:17-0500 Body mass index (BMI) [Ratio] 24.73 kg/m2 [facility]; [facility] Work Phone: 05-30-2008 13:17-0500 Body surface area Derived from formula 2.05 m2 [facility]; [facility] Work Phone: 05-30-2008 13:17-0500 Body temperature 98.6 [degF] [facility]; [facility] Work Phone: 05-30-2008 13:17-0500 Body weight 82.7 kg [facility]; [facility] Work Phone: 05-30-2008 13:17-0500 Diastolic blood pressure 78 mm[Hg] [facility]; [facility] Work Phone: 05-30-2008 13:17-0500 Head Occipital-frontal circumference 0 cm [facility]; [facility] Work Phone: 05-30-2008 13:17-0500 Heart rate 76 /min [facility]; [facility] Work Phone: 05-30-2008 13:17-0500 Respiratory rate 18 /min [facility]; [facility] Work Phone: 05-30-2008 13:17-0500 Systolic blood pressure 124 mm[Hg] [facility]; [facility] Work Phone: 04-25-2008 12:58-0500 Body height 0 cm Jackie Gaytan [facility]; [facility] Work Phone: 04-25-2008 12:58-0500 Body temperature 96.2 [degF] Jackie Gaytan [facility]; [facility] Work Phone: 04-25-2008 12:58-0500 Body weight 82.56 kg Jackie Gaytan [facility]; [facility] Work Phone: 04-25-2008 12:58-0500 Diastolic blood pressure 84 mm[Hg] Jackie Gaytan [facility]; [facility] Work Phone: 04-25-2008 12:58-0500 Head Occipital-frontal circumference 0 cm Jackie Gaytan [facility]; [facility] Work Phone: 04-25-2008 12:58-0500 Heart rate 76 /min Jackie Gaytan [facility]; [facility] Work Phone: 04-25-2008 12:58-0500 Respiratory rate 18 /min Jackie Gaytan [facility]; [facility] Work Phone: 04-25-2008 12:58-0500 Systolic blood pressure 116 mm[Hg] Jackie Gaytan [facility]; [facility] Work Phone: 01-25-2008 13:28-0400 Body height 0 cm Jackie Gaytan [facility]; [facility] Work Phone: 01-25-2008 13:28-0400 Body temperature 97.9 [degF] Jackie Gaytan [facility]; [facility] Work Phone: 01-25-2008 13:28-0400 Body weight 79.83 kg Jackie Gaytan [facility]; [facility] Work Phone: 01-25-2008 13:28-0400 Diastolic blood pressure 78 mm[Hg] Jackie Gaytan [facility]; [facility] Work Phone: 01-25-2008 13:28-0400 Head Occipital-frontal circumference 0 cm Jackie Gaytan [facility]; [facility] Work Phone: 01-25-2008 13:28-0400 Heart rate 76 /min Jackie Gaytan [facility]; [facility] Work Phone: 01-25-2008 13:28-0400 Respiratory rate 16 /min Jackie Gaytan [facility]; [facility] Work Phone: 01-25-2008 13:28-0400 Systolic blood pressure 120 mm[Hg] Jackie Flrito Darby [facility]; [facility] Work Phone: 11-09-2007 [id number] Body height 0 cm Stacia Clemens [facility]; [facility] Work Phone: 11-09-2007 [id number] Body weight 79.41 kg Stacia Clemens [facility]; [facility] Work Phone: 11-09-2007 13:03-0400 Diastolic blood pressure 84 mm[Hg] Stacia Clemens [facility]; [facility] Work Phone: 11-09-2007 13:03-0400 Head Occipital-frontal circumference 0 cm Stacia Clemens [facility]; [facility] Work Phone: 11-09-2007 13:03-0400 Heart rate 74 /min Stacia Clemens [facility]; [facility] Work Phone: 11-09-2007 13:03-0400 Respiratory rate 16 /min Stacia Clemens [facility]; [facility] Work Phone: 11-09-2007 13:03-0400 Systolic blood pressure 118 mm[Hg] Stacia Clemens [facility]; [facility] Work Phone: 08-09-2007 10:51-0400 Body height 182.88 cm Jackie Gaytan [facility]; [facility] Work Phone: 08-09-2007 10:51-0400 Body mass index (BMI) [Ratio] 24.55 kg/m2 Jackie Gaytan [facility]; [facility] Work Phone: 08-09-2007 10:51-0400 Body surface area Derived from formula 2.04 m2 Jackie Darby [facility]; [facility] Work Phone: 08-09-2007 10:51-0400 Body temperature 98 [degF] Jackie Darby [facility]; [facility] Work Phone: 08-09-2007 10:51-0400 Body weight 82.1 kg Jackie Darby [facility]; [facility] Work Phone: 08-09-2007 10:51-0400 Diastolic blood pressure 74 mm[Hg] Jackie Gaytan [facility]; [facility] Work Phone: 08-09-2007 10:51-0400 Head Occipital-frontal circumference 0 cm Jackie Gaytan [facility]; [facility] Work Phone: 08-09-2007 10:51-0400 Heart rate 80 /min Jackie Gaytan [facility]; [facility] Work Phone: 08-09-2007 10:51-0400 Respiratory rate 16 /min Jackie Gaytan [facility]; [facility] Work Phone: 08-09-2007 10:51-0400 Systolic blood pressure 112 mm[Hg] Jackie Gaytan [facility]; [facility] Work Phone: 05-20-2007 09:51-0500 Body height 182.88 cm Jaquelin Everett LPN [facility]; [facility] Work Phone: 05-20-2007 09:51-0500 Body mass index (BMI) [Ratio] 24.14 kg/m2 Jaquelin Everett LPN [facility]; [facility] Work Phone: 05-20-2007 09:51-0500 Body surface area Derived from formula 2.03 m2 Jaquelin Everett LPN [facility]; [facility] Work Phone: 05-20-2007 09:51-0500 Body temperature 98.4 [degF] Jaquelin Everett LPN [facility]; [facility] Work Phone: 05-20-2007 09:51-0500 Body weight 80.74 kg Jaquelin Everett LPN [facility]; [facility] Work Phone: 05-20-2007 09:51-0500 Diastolic blood pressure 74 mm[Hg] Jaquelin Everett LPN [facility]; [facility] Work Phone: 05-20-2007 09:51-0500 Head Occipital-frontal circumference 0 cm Jaquelin Karlos HUFFMAN [facility]; [facility] Work Phone: 05-20-2007 09:51-0500 Heart rate 66 /min Jaquelin Karlos HUFFMAN [facility]; [facility] Work Phone: 05-20-2007 09:51-0500 Respiratory rate 16 /min Jaquelin Karlos HUFFMAN [facility]; [facility] Work Phone: 05-20-2007 09:51-0500 SaO2% (BldA) [Mass fraction] 96 % Jaquelin Everett LPN [facility]; [facility] Work Phone: 05-20-2007 09:51-0500 Systolic blood pressure 116 mm[Hg] Jaquelin Everett LPN [facility]; [facility] Work Phone: 03-24-2007 13:14-0400 Body height 182.88 cm Jackie Gaytan [facility]; [facility] Work Phone: 03-24-2007 13:14-0400 Body mass index (BMI) [Ratio] 24.14 kg/m2 Jackie Gaytan [facility]; [facility] Work Phone: 03-24-2007 13:14-0400 Body surface area Derived from formula 2.03 m2 Jackie Gaytan [facility]; [facility] Work Phone: 03-24-2007 13:14-0400 Body temperature 98 [degF] Jackie Gaytan [facility]; [facility] Work Phone: 03-24-2007 13:14-0400 Body weight 80.74 kg Jackie Gaytan [facility]; [facility] Work Phone: 03-24-2007 13:14-0400 Diastolic blood pressure 88 mm[Hg] Jackie Gaytan [facility]; [facility] Work Phone: 03-24-2007 13:14-0400 Head Occipital-frontal circumference 0 cm Jackie Gaytan [facility]; [facility] Work Phone: 03-24-2007 13:14-0400 Heart rate 68 /min Jackie Gaytan [facility]; [facility] Work Phone: 03-24-2007 13:14-0400 Respiratory rate 16 /min Jackie Gaytan [facility]; [facility] Work Phone: 03-24-2007 13:14-0400 Systolic blood pressure 110 mm[Hg] Jackie Gaytan [facility]; [facility] Work Phone: 12-31-2006 15:05-0400 Body height 182.88 cm Kanika Martinez RN [facility]; [facility] Work Phone: 12-31-2006 15:05-0400 Body mass index (BMI) [Ratio] 23.73 kg/m2 Kanika Martinez RN [facility]; [facility] Work Phone: 12-31-2006 15:05-0400 Body surface area Derived from formula 2.01 m2 Kanika Martinez RN [facility]; [facility] Work Phone: 12-31-2006 15:05-0400 Body temperature 98.3 [degF] Kanika Martinez RN [facility]; [facility] Work Phone: 12-31-2006 15:05-0400 Body weight 79.38 kg Kanika Martinez RN [facility]; [facility] Work Phone: 12-31-2006 15:05-0400 Diastolic blood pressure 70 mm[Hg] Kanika Martinez RN [facility]; [facility] Work Phone: 12-31-2006 15:05-0400 Head Occipital-frontal circumference 0 cm Kanika Martinez RN [facility]; [facility] Work Phone: 12-31-2006 15:05-0400 Heart rate 84 /min Kanika Martinez RN [facility]; [facility] Work Phone: 12-31-2006 15:05-0400 Respiratory rate 16 /min Kanika Martinez RN [facility]; [facility] Work Phone: 12-31-2006 15:05-0400 Systolic blood pressure 104 mm[Hg] Kanika Martinez RN [facility]; [facility] Work Phone: 12-28-2006 14:58-0400 Body height 0 cm Jackie Gaytan [facility]; [facility] Work Phone: 12-28-2006 14:58-0400 Body temperature 97.9 [degF] Jackie Gaytan [facility]; [facility] Work Phone: 12-28-2006 14:58-0400 Body weight 77.57 kg Jackie Gaytan [facility]; [facility] Work Phone: 12-28-2006 14:58-0400 Diastolic blood pressure 78 mm[Hg] Jackie Gaytan [facility]; [facility] Work Phone: 12-28-2006 14:58-0400 Head Occipital-frontal circumference 0 cm Jackie Gaytan [facility]; [facility] Work Phone: 12-28-2006 14:58-0400 Heart rate 84 /min Jackie Gaytan [facility]; [facility] Work Phone: 12-28-2006 14:58-0400 Respiratory rate 16 /min Jackie Gaytan [facility]; [facility] Work Phone: 12-28-2006 14:58-0400 Systolic blood pressure 102 mm[Hg] Jackie Gaytan [facility]; [facility] Work Phone: 12-16-2006 13:11-0400 Body height 182.88 cm Myrna Rivas [facility]; [facility] Work Phone: 12-16-2006 13:11-0400 Body mass index (BMI) [Ratio] 23.36 kg/m2 Myrna Rivas [facility]; [facility] Work Phone: 12-16-2006 13:11-0400 Body surface area Derived from formula 2 m2 Myrna Rivas [facility]; [facility] Work Phone: 12-16-2006 13:11-0400 Body temperature 97.9 [degF] Myrna Rivas [facility]; [facility] Work Phone: 12-16-2006 13:11-0400 Body weight 78.13 kg Myrna Rivas [facility]; [facility] Work Phone: 12-16-2006 13:11-0400 Diastolic blood pressure 80 mm[Hg] Myrna Rivas [facility]; [facility] Work Phone: 12-16-2006 13:11-0400 Head Occipital-frontal circumference 0 cm Myrna Rivas [facility]; [facility] Work Phone: 12-16-2006 13:11-0400 Heart rate 72 /min Myrna Rivas [facility]; [facility] Work Phone: 12-16-2006 13:11-0400 Respiratory rate 20 /min Myrna Rivas [facility]; [facility] Work Phone: 12-16-2006 13:11-0400 Systolic blood pressure 120 mm[Hg] Myrna Rivas [facility]; [facility] Work Phone: 09-18-2006 12:13-0400 Body height 0 cm Kanika Martinez RN [facility]; [facility] Work Phone: 09-18-2006 12:13-0400 Body temperature 97 [degF] Kanika Martinez RN [facility]; [facility] Work Phone: 09-18-2006 12:13-0400 Body weight 80.29 kg Kanika Martinez RN [facility]; [facility] Work Phone: 09-18-2006 12:13-0400 Diastolic blood pressure 78 mm[Hg] Kanika Martinez RN [facility]; [facility] Work Phone: 09-18-2006 12:13-0400 Head Occipital-frontal circumference 0 cm Kanika Martinez RN [facility]; [facility] Work Phone: 09-18-2006 12:13-0400 Heart rate 72 /min Kanika Martinez RN [facility]; [facility] Work Phone: 09-18-2006 12:13-0400 Respiratory rate 14 /min Kanika Martinez RN [facility]; [facility] Work Phone: 09-18-2006 12:13-0400 Systolic blood pressure 120 mm[Hg] Kanika Martinez RN [facility]; [facility] Work Phone: 06-16-2006 11:01-0500 Body height 0 cm Jackie Darby [facility]; [facility] Work Phone: 06-16-2006 11:01-0500 Body temperature 97.1 [degF] Jackie Darby [facility]; [facility] Work Phone: 06-16-2006 11:01-0500 Body weight 81.85 kg Jackie Darby [facility]; [facility] Work Phone: 06-16-2006 11:01-0500 Diastolic blood pressure 76 mm[Hg] Jackie Darby [facility]; [facility] Work Phone: 06-16-2006 11:01-0500 Head Occipital-frontal circumference 0 cm Jackie Darby [facility]; [facility] Work Phone: 06-16-2006 11:01-0500 Heart rate 72 /min Jackie Gaytan [facility]; [facility] Work Phone: 06-16-2006 11:01-0500 Respiratory rate 16 /min Jackie Darby [facility]; [facility] Work Phone: 06-16-2006 11:01-0500 Systolic blood pressure 116 mm[Hg] Jackie Darby [facility]; [facility] Work Phone: Encounters Encounter Date Encounter Type Care Provider Facility Start: 11-14-2024 End: 11-14-2024 Emergency department patient visit Juan Rodriguez NP-C Work Phone: -Emergency Department Work Phone: Start: 11-01-2024 End: 11-01-[address] Melody Whitmore MD -[facility] Work Phone: Start: 11-01-2024 End: 11-01-2024 ambulatory Juan Negro 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-C Work Phone: [facility] Work Phone: Start: 09-30-2024 End: 09-30-2024 ambulatory Juan Negro 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-C Work Phone: [facility] Work Phone: Start: 09-30-2024 End: 09-30-[address] [facility] Start: 09-30-2024 End: 09-30-2024 ambulatory [facility] Facility:[facility] Start: 08-24-2024 End: 08-24-2024 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 Work Phone: [facility] Work Phone: Start: 08-24-2024 End: 08-24-[address] Yahaira Rangel MD -[facility] Start: 08-24-[address] Yahaira Rangel MD -[facility] Start: 08-24-2024 End: 08-24-2024 ambulatory Yahaira RICE Facility:[facility] Start: 08-22-2024 ambulatory [facility] Facility:[facility] Start: 08-22-[address] Yahaira Rangel MD -[facility] Start: 08-18-2024 ambulatory [facility] Negro [facility] Start: 08-17-2024 End: 08-17-2024 ambulatory Juan Negro 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-C Work Phone: [facility] Work Phone: Start: 08-17-2024 End: 08-17-[address] Yahaira Rangel MD -[facility] Start: 08-16-2024 End: 08-16-2024 Emergency department patient visit Dr. Butch Barcenas DO Work Phone: -Emergency Department Work Phone: Start: 08-16-2024 End: 08-17-2024 ambulatory [facility] Facility:[facility] Start: 08-04-2024 End: 08-13-2024 Evaluation and management of inpatient OSCAR TURCIOS DO Facility:[facility] Start: 08-02-2024 End: 08-04-[address] DAY NEWBERRY MD Facility:[facility] Start: 07-21-2024 End: 07-21-[address] Day Newberry MD -Laboratory, [place] Work Phone: Start: 07-21-2024 End: 07-21-2024 ambulatory [facility] Facility:[facility] Start: 07-15-2024 End: 07-15-2024 Patient encounter procedure Juan Rodriguez NP-C -Laboratory, [facility] Start: 07-15-2024 End: 07-15-2024 ambulatory [facility] Facility:[facility] Start: 07-07-2024 End: 07-07-2024 ambulatory CORKY HERNANDEZ MD Facility[place] [place] Start: 07-07-2024 End: 07-07-[address] DAY NEWBERRY MD [facility] Start: 07-07-2024 End: 07-07-[address] DAY NEWBERRY MD [facility] Start: 07-07-2024 End: 07-07-2024 ambulatory CORKY HERNANDEZ MD Facility:[facility] Start: 06-29-2024 ambulatory [facility] Facility:[place] Start: 06-13-2024 End: 06-13-2024 Patient encounter procedure Jackie Ballard NP-C -Laboratory, [place] Work Phone: Start: 06-13-2024 End: 06-13-2024 ambulatory [facility] Facility:[facility] Start: 06-06-2024 ambulatory [facility] Start: 06-06-2024 Non-patient / Non-visit Dr. Lm stacy MD -[facility] Start: 06-06-2024 End: 06-06-2024 Patient encounter procedure Juan Rodriguez 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-C -Cardiovascular Services Work Phone: Start: 06-06-2024 End: 06-06-2024 ambulatory [facility] Facility:[facility] Start: 06-03-2024 End: 06-03-2024 Patient encounter procedure Juan Rodriguez 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-C -Radiology, [place] Work Phone: Start: 06-03-2024 End: 06-03-2024 ambulatory [facility] Facility:[facility] Start: 05-18-2024 End: 05-18-2024 Patient encounter procedure Jackie Ballard 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-C -Laboratory Work Phone: Start: 05-18-2024 End: 05-18-2024 Patient encounter procedure Jackie Ballard 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-C -[facility] Work Phone: Start: 05-18-2024 End: 05-18-2024 ambulatory Jackie Ballard [facility] Start: 05-18-2024 End: 05-18-2024 ambulatory Jackie Ballard Facility:[facility] Start: 05-10-2024 End: 05-10-2024 Patient encounter procedure Juan Rodriguez 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-C -Laboratory Work Phone: Start: 05-10-2024 End: 05-10-2024 ambulatory [facility] Facility:[facility] Start: 04-28-2024 Non-patient / Non-visit Dr. Leandra Sol MD -[facility] Work Phone: Start: 04-27-2024 ambulatory [facility] Facility:[facility] Start: 04-27-2024 Non-patient / Non-visit Taco Driscoll nd, DO -[facility] Start: 04-27-2024 Non-patient / Non-visit Dr. Leandra Sol MD -[place] [facility] Physicians Work Phone: Start: 04-26-2024 Non-patient / Non-visit Taco Driscoll nd DO [facility] Start: 04-26-2024 Non-patient / Non-visit Dr. Leandra Sol MD -[place] [facility] Work Phone: Start: 04-26-2024 ambulatory Taco Rose Facility :[facility] Start: 04-25-2024 Non-patient / Non-visit Taco Driscoll nd DO -[facility] Start: 04-25-2024 ambulatory Joanna Sol Facility :[facility] Start: 04-25-2024 End: 04-28-2024 Evaluation and management of inpatient Dr. Joanna Sol MD -Progressive Care Unit Work Phone: Start: 03-29-2024 End: 03-29-2024 ambulatory Jose Chi Jessee Facility:[facility] Start: 03-15-2024 ambulatory Jose Chi Jessee [facility] Start: 03-15-2024 End: 03-15-2024 ambulatory Rina Olivier PA Facility:[facility] Start: 03-08-2024 ambulatory Jose Chi Jessee [facility] Start: 03-07-2024 ambulatory Melody Pedersenan [facility] Start: 03-07-2024 End: 03-07-2024 ambulatory Rina Olivier PA Facility:[facility] Start: 02-18-2024 End: 02-18-2024 ambulatory Jose Chi Jessee Facility:[facility] Start: 02-17-2024 End: 02-18-2024 ambulatory Rina Olivier PA Facility:[facility] Start: 01-28-2024 End: 01-28-2024 ambulatory Taco Friend Facility:[facility] Start: 01-21-2024 End: 01-21-2024 ambulatory Jose Chi Jessee Facility:[facility] Start: 01-20-2024 End: 01-20-2024 ambulatory Emely Abad Facility:[facility] Start: 01-20-2024 End: 01-20-2024 ambulatory Emely Abad Facility:[facility] Start: 01-11-2024 End: 01-11-2024 ambulatory Joes Chi Jessee Facility:[facility] Start: 01-05-2024 ambulatory Jose Chi Jessee [facility] Start: 01-05-2024 End: 01-08-2024 Evaluation and management of inpatient Jose Chi Jessee Facility:[facility] Start: 12-31-2023 End: 12-31-2023 ambulatory Jose Chi Jessee Facility:[facility] Start: 12-30-2023 End: 12-31-2023 ambulatory Jose Chi Jessee Facility:[facility] Start: 12-29-2023 End: 12-29-2023 ambulatory Jose Chi Jessee Facility:[facility] Start: 12-25-2023 End: 12-25-2023 ambulatory Jose Chi Jessee Facility:[facility] Start: 12-16-2023 End: 12-16-2023 ambulatory Jose Chi Jessee Facility:[facility] Start: 12-10-2023 End: 12-10-2023 ambulatory Jose Chi Jessee Facility:[facility] Start: 12-09-2023 End: 12-09-2023 ambulatory Jose Chi Jessee Facility:[facility] Start: 11-30-2023 End: 11-30-2023 ambulatory Jose Chi Jessee Facility:[facility] Start: 10-19-[address] Butch Barcenas DO Work Phone: [facility] Start: 10-06-2023 End: 10-06-[address] Jose Hooks Work Phone: [facility] Work Phone: Start: 10-06-2023 End: 10-06-[address] Jose Hooks Work Phone: [facility] Work Phone: Start: 10-03-2023 Non-patient / Non-visit Dr. Xu Hooks Work Phone: [facility] Work Phone: Start: 10-02-2023 Non-patient / Non-visit [facility] Hook[facility] Work Phone: Start: 10-01-2023 Non-patient / Non-visit Dr. Xu Hooks Work Phone: [facility] Inpatient Physicians Work Phone: Start: 09-30-2023 End: 10-03-2023 Evaluation and management of inpatient Dr. Jose Hooks [facility] Work Phone: Start: 09-09-2023 End: 09-09-[address] Jose Hooks Work Phone: [facility] Work Phone: Start: 09-09-2023 End: 09-09-[address] Jose Hooks Work Phone: [facility], y Office 3rd Nmr Start: 09-08-2023 End: 09-08-[address] Jose Hooks Work Phone: [facility] Work Phone: Start: 09-08-2023 End: 09-08-[address] Jose Hook[facility] Start: 08-18-2023 End: 08-18-[address] Jose Hooks Work Phone: [facility] Vascular Surgery Work Phone: Start: 08-18-2023 Non-patient / Non-visit Dr. Xu Hooks Work Phone: [facility] Start: 08-18-2023 End: 08-18-[address] Jose Hooks Work Phone: [facility] Work Phone: Start: 08-18-2023 End: 08-18-[address] Jose Hooks [facility] Work [facility]: Start: 07-15-2023 End: 07-15-[address] Jose Hooks Work Phone: [facility] Gastroenterology Work Phone: Start: 06-25-2023 End: 06-25-[address] Jose Hooks Work Phone: [facility] Vascular Surgery Work Phone: Start: 06-24-2023 End: 06-24-[address] Jose Hooks Work Phone: [facility] Work Phone: Start: 06-24-2023 End: 06-24-[address] Jose Hooks Work Phone: [facility]Labor[facility], Phy Office 3rd Flr Start: 06-08-2023 End: 06-08-[address] Jose Hooks [facility] Start: 06-03-2023 Non-patient / Non-visit Dr. Xu Hooks Work Phone: [facility] Start: 06-03-2023 End: 06-03-2023 Admission to same day surgery center Dr. Jose Hooks Work Phone: [facility]/Special Procedures Work Phone: Start: 05-30-2023 Non-patient / Non-visit Dr. Xu Hooks Work Phone: [facility] Start: 05-30-2023 Non-patient / Non-visit Dr. Xu Hooks Work Phone: [facility] Inpatient Physicians Work Phone: Start: 05-30-2023 Non-patient / Non-visit Dr. Xu Hooks Work Phone: [facility] Start: 05-29-2023 End: 05-30-2023 Evaluation and management of inpatient Dr. Jose Hooks Work [facility] Work Phone: Start: 05-23-2023 Non-patient / Non-visit Dr. Xu Hooks Work Phone: [facility] Inpatient Physicians Work Phone: Start: 05-22-2023 Non-patient / Non-visit Dr. Xu Hooks Work Phone: [facility] Inpatient Physicians Work Phone: Start: 05-21-2023 Non-patient / Non-visit Dr. Xu Hooks Work Phone: [facility] Start: 05-21-2023 Non-patient / Non-visit Dr. Xu Hooks Work Phone: [facility] Inpatient Physicians Work Phone: Start: 05-20-2023 Non-patient / Non-visit Dr. Xu Hooks Work Phone: [facility] Inpatient Physicians Work Phone: Start: 05-20-2023 End: 05-23-2023 Evaluation and management of inpatient Dr. Jose Hooks Work Phone[facility] Work Phone: Start: 05-06-2023 End: 05-06-[address] Jose Hooks Work Phone: [facility] Work Phone: Start: 05-06-2023 End: 05-06-[address] Jose Hooks [facility] Work Phone: Start: 05-04-2023 End: 05-04-[address] Jose Hooks Work Phone: [facility], Phy Office 3rd Flr Start: 04-20-2023 End: 04-30-[address] Jose Hooks Work Phone: [facility] Work Phone: Start: 04-20-2023 End: 04-30-[address] Jose Hooks Work Phone: [facility]Cardiac Rehab Work Phone: Start: 04-15-2023 End: 04-15-[address] Jose Hooks Work Phone: [facility] Work Phone: Start: 04-08-[address] Jose ferrell Work Phone: [facility]-Cardiac Rehab Work Phone: Start: 04-08-2023 End: 04-08-[address] Jose Hooks Work Phone: [facility] Work Phone: Start: 04-08-2023 End: 04-08-[address] Jose Hooks [facility]: Start: 03-30-2023 End: 03-31-[address] Joes Hooks Work Phone: [facility]-Cardiac Rehab Work Phone: Start: 02-25-2023 End: 02-28-[address] Jose Hooks Work Phone: [facility] Work Phone: Start: 02-25-2023 End: 02-28-[address] Jose Hooks Work Phone: [facility] Work Phone: Start: 02-23-[address] Jose ferrell Work Phone: [facility] Work Phone: Start: 02-17-2023 End: 02-17-[address] Jose Hooks Work Phone: [facility] Work Phone: Start: 02-17-2023 End: 02-17-[address] Jose Hooks [facility] Work Phone: Start: 02-11-[address] Jose ferrell Work Phone: [facility]Card[facility] Work Phone: Start: 02-05-2023 End: 02-05-[address] Jose Hooks Work Phone: [facility] Work Phone: Start: 02-05-2023 End: 02-05-[address] Jose Hooks [facility] Work Phone: Start: 01-28-2023 End: 01-29-[address] Jose Hooks Work Phone: [facility] Work Phone: Start: 01-28-2023 End: 01-29-[address] Jose Hooks Work Phone: [facility]Cardiac [facility] Work Phone: Start: 01-28-[address] Jose ferrell Work Phone: [facility] Work Phone: Start: 01-16-[address] Jose ferrell Work Phone: [facility] Work Phone: Start: 01-15-2023 End: 01-15-[address] Jose Hooks Work Phone: [facility] Work Phone: Start: 01-12-2023 End: 01-12-[address] Jose Hooks Work Phone: [facility] Work Phone: Start: 01-12-2023 End: 01-12-[address] Jose Hooks Work Phone: [facility]Card[facility] Work Phone: Start: 01-06-2023 Non-patient / Non-visit Dr. Xu Hooks Work Phone: [facility] Start: 01-05-2023 End: 01-06-2023 Evaluation and management of inpatient Dr. Jose Hooks Work Phone: [facility]-Progressive Care Unit Work Phone: Start: 01-05-2023 End: 01-06-[address] Jose Hooks Work Phone: [facility] Work Phone: Start: 01-05-2023 Non-patient / Non-visit Dr. Xu Hooks Work Phone: [facility] Start: 12-24-2022 End: 12-24-[address] Jose Hooks Work Phone: [facility] Work Phone: Start: 12-24-2022 End: 12-24-[address] Jose Hooks Work Phone: [facility]-Laboratory, Phy Office [address] [place] [address] Start: 12-09-2022 End: 12-09-[address] Jose Hooks Work Phone: [facility] Work Phone: Start: 11-17-2022 End: 11-17-2022 Emergency department patient visit Dr. Jose Hooks Work Phone: [facility]-Emergency Department Work Phone: Start: 11-13-2022 Non-patient / Non-visit Dr. Xu Hooks Work Phone: [facility] Start: 11-11-2022 Non-patient / Non-visit Dr. Xu Hooks Work Phone: [facility] Start: 11-11-2022 End: 11-11-[address] Jose Hooks Work Phone: [facility] Work Phone: Start: 11-11-2022 End: 11-11-[address] Jose Hooks [facility] Start: 11-06-2022 End: 11-06-[address] Jose Hooks Work Phone: [facility] Start: 11-04-2022 End: 11-04-[address] Jose Hooks Work Phone: [facility] Start: 10-30-2022 End: 10-30-[address] Jose Hooks Work Phone: [facility] Work Phone: Start: 10-30-2022 End: 10-30-[address] Jose Hooks Work Phone: [facility] Start: 10-29-2022 End: 10-29-[address] Jose Hooks Work Phone: [facility] Work Phone: Start: 10-29-2022 End: 10-29-[address] Jose Hooks Work Phone: [facility] Work Phone: Start: 10-29-[address] Jose ferrell Work Phone: [facility] Start: 09-09-2022 End: 09-09-[address] Jose Hooks [facility] Start: 08-04-2022 End: 08-04-[address] Jose Hooks Work Phone: [facility] Work Phone: Start: 08-04-2022 End: 08-04-[address] Jose Hooks [facility] Phone[facility] 3[facility] Flr Start: 07-22-2022 End: 07-22-[address] Jose Hooks Work Phone: [facility] Work Phone: Start: 07-22-2022 End: 07-22-[address] Jose Hooks Work Phone: [facility]-Pulmonary Services/Neurology Start: 07-09-2022 End: 07-09-[address] Jose Hooks Work Phone: [facility] Work Phone: Start: 07-09-2022 End: 07-09-[address] Jose Hooks Work Phone: [facility] Office 3rd Flr Start: 06-26-2022 End: 06-26-[address] Jose Hooks Work Phone: [facility] Start: 06-19-2022 End: 06-19-[address] Jose Hooks Work Phone: [facility] Work Phone: Start: 06-19-2022 End: 06-19-[address] Jose Hooks Work Phone[facility] Office 3rd Flr Start: 04-04-2022 End: 04-04-[address] Jose Hooks Work Phone: [facility] Work Phone: Start: 04-04-2022 End: 04-04-[address] Jose Hooks Work Phone: [facility] Start: 03-18-2022 Non-patient / Non-visit Dr. Xu Hooks Work Phone: [facility] Start: 03-18-2022 End: 03-18-[address] Jose Hooks Work Phone: [facility] Work Phone: Start: 03-18-2022 End: 03-18-[address] Jose Hooks Work Phone: [facility] Start: 01-22-2022 End: 01-22-[address] Jose Hooks Work Phone: [facility] Work Phone: Start: 01-22-2022 End: 01-22-[address] Jose Hooks [facility] Start: 01-13-2022 Non-patient / Non-visit Dr. Xu Hooks Work Phone: [facility] Start: 01-13-2022 End: 01-13-[address] Jose Hooks Work [facility] Start: 01-09-2022 End: 01-09-[address] Jose Hooks Work Phone: [facility] Start: 12-25-2021 End: 12-25-[address] Jose Hooks Work Phone: [facility] Start: 12-19-2021 End: 12-19-[address] Jose Hooks [facility] 3[facility] Flr Start: 12-05-2021 End: 12-05-[address] Jose Hooks Work Phone: [facility] Start: 11-14-2021 End: 11-14-[address] Jose Hoosk Work Phone: [facility] Start: 10-16-2021 End: 10-16-[address] Jose Hooks Work Phone: [facility] Start: 10-15-2021 End: 10-15-[address] Jose Hooks [facility] Start: 10-10-2021 End: 10-10-[address] Jose Hooks Work Phone[facility] 3[facility] Fl[facility] Start: 10-07-2021 End: 10-07-[address] Jose Hooks Work Phone: [facility] Start: 10-02-2021 End: 10-02-[address] Jose Hooks Work Phone: [facility]Cardi[facility] Services Start: 09-18-2021 End: 09-18-[address] Jose Hooks [facility] Fl[facility] Start: 09-18-2021 End: 09-18-[address] Jose Hooks Work Phone: [facility] Start: 09-06-2021 End: 09-28-[address] Jose Hooks Work Phone: [facility] Start: 09-06-[address] Jose ferrell Work Phone: [facility] Start: 09-04-[address] Orestes Bates Work Phone: [facility] Start: 08-26-2021 End: 08-29-[address] Javi Bates Work Phone: [facility] Start: 08-26-2021 End: 08-26-[address] Javi Bates Work Phone: [facility]Laboratory, Specimen Start: 08-07-2021 End: 08-07-[address] Javi Bates Work Phone: [facility], y Office 3rd Flr Start: 07-29-2021 End: 07-29-[address] Javi Bates Work Phone: [facility] Start: 07-16-2021 End: 07-16-[address] Javi Bates Work Phone: [facility]Cardi[facility] Start: 07-09-2021 End: 07-09-[address] Javi Bates Work Phone: [facility] Start: 06-27-2021 End: 06-27-[address] Javi Bates Work Phone: [facility] Start: 06-20-2021 End: 06-20-[address] Javi Bates Work Phone: [facility], y Office 3rd Flr Start: 05-16-2021 Non-patient / Non-visit Dr. Maninder Bates Work Phone: [facility] Start: 05-16-2021 End: 05-16-2021 Emergency department patient visit Dr. Javi Bates Work Phone: [facility]Emergency Department Start: 05-16-2021 End: 05-16-[address] Javi Bates Work Phone: [facility] Start: 05-03-[address] Javi Bates Work Phone: [facility]Medical Out Start: 12-05-2015 End: 12-05-2015 Office outpatient visit 5 minutes Sherron Fast DO Work Phone: [facility] Start: 11-21-2015 End: 11-21-2015 Office outpatient visit 10 minutes Sherron Fast DO Work Phone: [facility] Start: 11-07-2015 End: 11-07-2015 Office outpatient visit 15 minutes Sherron Fast DO Work Phone: [facility] Start: 10-24-2015 End: 10-24-2015 Office outpatient visit 25 minutes Sherron Fast DO Work Phone: [facility] Start: 10-15-2015 End: 10-15-2015 Office outpatient visit 25 minutes Sherron Fast DO Work Phone: [facility] Start: 10-08-2015 End: 10-08-2015 Office outpatient visit 40 minutes Sherron Fast DO Work Phone: [facility] Start: 10-03-2015 End: 10-08-2015 Office outpatient visit 25 minutes Sherron Fast DO Work Phone: [facility] Start: 08-13-2015 End: 08-13-2015 Sherron Fast DO Work Phone: [facility] Start: 08-08-2015 End: 08-09-2015 Office outpatient visit 25 minutes Sherron Fast DO Work Phone: [facility] Start: 06-13-2015 End: 06-14-2015 Office outpatient visit 25 minutes Sherron Fast DO Work Phone: [facility] Start: 01-24-2015 End: 01-25-2015 Office outpatient visit 25 minutes Sherron Fast DO Work Phone: [facility] Start: 01-18-2015 End: 01-19-2015 Sherron Fast DO Work Phone: [facility] Start: 10-31-2014 End: 10-31-2014 Office outpatient visit 15 minutes Sherron Fast DO Work Phone: [facility] Start: 10-05-2014 End: 10-05-2014 Office outpatient visit 15 minutes Sherron Fast DO Work Phone: [facility] Start: 09-27-2014 End: 09-27-2014 Office outpatient visit 25 minutes Sherron Fast DO Work Phone: [facility] Start: 06-27-2014 End: 06-27-2014 Office outpatient visit 25 minutes Sherron Fast DO Work Phone: [facility] Start: 03-06-2014 End: 03-06-2014 Office outpatient visit 5 minutes Sherron Fast DO Work Phone: [facility] Start: 02-24-2014 End: 02-26-2014 Office outpatient visit 25 minutes Sherron Fast DO Work Phone: [facility] Start: 10-25-2013 End: 10-25-2013 Sherron Fast DO Work Phone: [facility] Start: 10-21-2013 End: 10-21-2013 Sherron Fast DO Work Phone: [facility] Start: 06-30-2013 End: 06-30-2013 Sherron Fast DO Work Phone: [facility] Start: 02-22-2013 End: 02-22-2013 Sherron Fast DO Work Phone: [facility] Start: 10-22-2012 End: 10-22-2012 Sherron Fast DO Work Phone: [facility] Start: 06-22-2012 End: 06-22-2012 Sherron Fast DO Work Phone: [facility] Start: 06-21-2012 End: 06-21-2012 Sherron Fast DO Work Phone: [facility] Start: 03-19-2012 End: 03-21-2012 Sherron Fast DO Work Phone: [facility] Start: 01-08-2012 End: 01-08-2012 Sherron Fast DO Work Phone: [facility] Start: 01-05-2012 End: 01-05-2012 Sherron Fast DO Work Phone: [facility] Start: 12-09-2011 End: 12-09-2011 Sherron Fast DO Work Phone: [facility] Start: 11-24-2011 End: 11-24-2011 Sherron Fast DO Work Phone: [facility] Start: 10-07-2011 End: 10-07-2011 Sherron Fast DO Work Phone: [facility] Start: 09-19-2011 End: 09-21-2011 Sherron Fast DO Work Phone: [facility] Start: 09-17-2011 End: 09-17-2011 Sherron Fast DO Work Phone: [facility] Start: 05-20-2011 End: 05-20-2011 Sherron Fast DO Work Phone: [facility] Start: 01-15-2011 End: 01-15-2011 Sherron Fast DO Work Phone: [facility] Start: 10-11-2010 End: 10-11-2010 Sherron Fast DO Work Phone: [facility] Start: 08-28-2010 End: 08-28-2010 Sherron Fast DO Work Phone: [facility] Start: 05-06-2010 End: 05-06-2010 Sherron Fast DO Work Phone: [facility] Start: 03-13-2010 End: 03-13-2010 Sherron Fast DO Work Phone: [facility] Start: 11-28-2009 End: 11-28-2009 Sherron Fast DO Work Phone: [facility] Start: 08-22-2009 End: 08-22-2009 Sherron Fast DO Work Phone: [facility] Start: 05-22-2009 End: 05-22-2009 Sherron Fast DO Work Phone: [facility] Start: 02-20-2009 End: 02-20-2009 Sherron Fast DO Work Phone: [facility] Start: 12-15-2008 End: 12-15-2008 Sherron Fast DO Work Phone: [facility] Start: 11-14-2008 End: 11-14-2008 Sherron Fast DO Work Phone: [facility] Start: 08-14-2008 End: 08-14-2008 Sherron Fast DO Work Phone: [facility] Start: 07-05-2008 End: 07-05-2008 Office outpatient visit 15 minutes Sherron Fast DO Work Phone: [facility] Start: 05-30-2008 End: 05-30-2008 Sherron Fast DO Work Phone: [facility] Start: 04-25-2008 End: 04-25-2008 Sherron Fast DO Work Phone: [facility] Start: 01-25-2008 End: 01-25-2008 Sherron Fast DO Work Phone: [facility] Start: 11-09-2007 End: 11-09-2007 Sherron Fast DO Work Phone: [facility] Start: 08-24-2007 End: 08-24-2007 Sherron Fast DO Work Phone: [facility] Start: 08-09-2007 End: 08-09-2007 Sherron Fast DO Work Phone: [facility] Start: 05-20-2007 End: 05-20-2007 Office outpatient visit 25 minutes Sherron Fast DO Work Phone: [facility] Start: 03-24-2007 End: 03-24-2007 Sherron Fast DO Work Phone: [facility] Start: 02-17-2007 End: 02-17-2007 Hserron Fast DO Work Phone: [facility] Start: 12-31-2006 End: 01-01-2007 Sherron Fast DO Work Phone: [facility] Start: 12-28-2006 End: 12-29-2006 Sherron Fast DO Work Phone: [facility] Start: 12-16-2006 End: 12-16-2006 Sherron Fast DO Work Phone: [facility] Start: 09-18-2006 End: 09-21-2006 Sherron Fast DO Work Phone: [facility] Start: 06-16-2006 End: 06-16-2006 Sherron Fast DO Work Phone: [facility] Start: 06-15-2006 End: 06-15-2006 Sherron Fast DO Work Phone: [facility] Start: 04-28-2006 End: 04-28-2006 Sherron Fast DO Work Phone: [facility] Start: 02-13-2006 End: 02-13-2006 Sherron Fast DO Work Phone: [facility] Patient encounter procedure Myrna Rivas RN [facility]; [facility] Work Phone: Procedures Date Procedure Procedure Detail Performing Clinician Start: 11-14-2024 X-ray of knee, four or more views Juan Rodriguez 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-C Work Phone: Start: 09-30-2024 Serum inorganic phosphate measurement Juan Rodriguez 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-C Work Phone: Start: 08-17-2024 Vitamin D, 25-hydroxy measurement Juan Rodriguez 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-C Work Phone: Comment on above: Vitamin D StatusDeficiency: <20 ng/mL (5 0nmol/L)Insufficiency: 20-30 ng/mL (50-75 nmol/L)Sufficiency: 30-100 ng/mL (75-250 nmol/L)Toxicity: >100 ng/mL (>250 nmol/L) Start: 06-03-2024 X-ray of knee, four or more views Dr. Butch Barcenas DO Work Phone: Start: 04-27-[address] Butch Barcenas DO Work Phone: Start: 04-26-[address] Butch Barcenas DO Work Phone: Start: 04-25-2024 Measurement of occult blood in stool specimen using immunoassay Dr. Butch Barcenas DO Work Phone: Start: 04-25-2024 Plain chest X-ray Dr. Butch Barcenas Work Phone: Start: 10-06-[address] Jose Hooks Work Phone: Start: 10-01-2023 Bacteria identified in Blood by Culture Dr. Jose Hooks Work Phone: Start: 10-01-[address] Jose Hooks Work Phone: Start: 09-30-[address] Jose Hooks Work Phone: Start: 09-30-2023 Computed tomography of abdomen and pelvis with contrast Dr. Jose Hooks Work Phone: Start: 05-30-[address] Jose Hooks Work Phone: Start: 05-29-2023 Measurement of occult blood in stool specimen using immunoassay Dr. Jose Hooks Work Phone: Start: 05-22-2023 MRI of brain with contrast Dr. Jose Hooks Work Phone: Start: 05-21-2023 CT of chest and abdomen Dr. Jose Hooks Work Phone: Start: 05-20-2023 MRI of brain without contrast Dr. Jose bull Work Phone: Start: 05-20-2023 Plain chest X-ray Dr. Jose Hooks Work Phone: Start: 05-20-2023 CT angiography of head and neck Dr. Jose Hooks Work Phone: Start: 05-20-2023 CT of head without contrast Dr. Jose Hooks Work Phone: Start: 05-06-2023 Coronavirus COVID-[address] Jose Hooks Work Phone: Start: 05-06-2023 Influenza Types A,B Direct FA (CHRIS) Dr. Jose Hooks Work Phone: Start: 05-06-2023 Respiratory syncytial virus antigen assay Dr. Jose Hooks Work Phone: Start: 02-05-2023 Coronavirus COVID-[address] Jose Hooks Work Phone: Start: 02-05-2023 Influenza Types A,B Direct FA (CHRIS) Dr. Jose Hooks Work Phone: Start: 02-05-2023 Respiratory syncytial virus antigen assay Dr. Jose Hooks Work Phone: Start: 01-05-2023 History of placement of stent in anterior descending branch of left coronary artery History of placement of stent in LAD coronary artery Dr. Jose Hooks Work Phone: Comment on above: REKHA Mid LAD using Resolute Ina 2.75x15 mm, REKHA Prox LAD using Resolute Ina 3.0x38 mm Start: 11-17-2022 Plain chest X-ray Dr. Jose Hooks Work Phone: Start: 11-11-2022 Radionuclide imaging of perfusion of myocardium under exercise stress Dr. Jose Hooks Work Phone: Start: 10-30-2022 Plain chest X-ray Dr. Jose Hooks Work Phone: Start: 11-14-2021 MRI of cervical spine Dr. Jose Hooks Work Phone: Start: 11-14-2021 MRI of brain without contrast Dr. Jose bull Work Phone: Start: 10-16-[address] Jose Hooks Work Phone: Start: 10-07-2021 MRI of lumbar spine Dr. Jose Hooks Work Phone: Start: 09-18-[address] Jose Hooks Work Phone: Start: 08-26-[address] Javi Bates Work Phone: Start: 05-16-2021 Echography of scrotum and contents Dr. Javi Bates Work Phone: Start: 03-02-2021 Antibody screen Comment on above: Order Comment: Specimen Type: BLOOD SPEC IMEN Performed By: #### T SCR ####[facility] [id number] [address] Start: 02-25-2021 Antibody screen Comment on above: Order Comment: Specimen Type: BLOOD SPEC IMEN Performed By: #### T SCR #### [facility] CLIA [id number] [address] Start: 01-30-2021 History of coronary artery bypass grafting History of coronary artery bypass graft x 3 Dr. Melody Whitmore MD Comment on above: CABG x3- SPRINGER in situ mammary end to arpit e mid LAD, SVG aorta end to side OM1, SVG aorta to PDA Dr. Grewal @ [facility] 02/26/21 Start: 02-11-2017 End: 02-11-2017 Follow Up Appt 6 months Rina Olivier PA-C Work Phone: Start: 02-11-2017 End: 02-11-2017 PFM Rina Olivier PA-C Work Phone: Start: 11-26-2016 End: 11-27-2016 Referral to resident program specialist Geovanny Michelle MD Start: 11-10-2016 End: 11-11-2016 Venous doppler Geovanny Michelle MD Start: 11-03-2016 End: 11-20-2016 *BMP Geovanny Michelle MD Start: 11-03-2016 End: 11-03-2016 Follow Up Appt 3 months Geovanny Michelle MD Start: 11-03-2016 End: 11-03-2016 MMReji Michelle MD Start: 10-14-2016 End: 02-05-2017 Renal doppler Rina Olivier PA-C Work Phone: Start: 10-14-2016 End: 02-05-2017 Us abdominal real time w/image limited Rina Olivier PA-C Work Phone: Start: 09-05-2016 End: 02-05-2017 Ambulatory BP Monitor 24 HR Rina Olivier PA-C Work Phone: Start: 08-08-2016 End: 2016 *BMP Rina Olivier PA-C Work Phone: Start: 08-08-2016 End: 08-08-2016 Follow Up Appt Other Rina Olivier PA-C Work Phone: Start: 06-13-2016 End: 06-13-2016 Ecg routine ecg w/least 12 lds w/i&r Geovanny Michelle MD Start: 06-13-2016 End: 06-13-2016 Follow Up Appt Other Geovanny Michelle MD Start: 06-13-2016 End: 06-13-2016 MMM Geovanny Michelle MD Start: 05-08-2016 End: 08-01-2016 Echocardiography Cindy A Keyes LEAD WEB DEVELOPER-C Start: 05-08-2016 End: 08-01-2016 Follow Up Appt 3 months Cindy A Keyes LEAD WEB DEVELOPER-C Start: 05-08-2016 End: 05-13-2016 Magnesium [Mass/volume] in Serum or Plasma Cindy A Keyes LEAD WEB DEVELOPER-C Start: 05-08-2016 End: 08-01-2016 MMM Cindy A Keyes LEAD WEB DEVELOPER-C Start: 05-08-2016 End: 05-16-2016 Thyrotropin [Units/volume] in Serum or Plasma Cindy A Keyes LEAD WEB DEVELOPER-C Start: 05-05-2016 End: 08-01-2016 24 hour holter monitor Cindy A Keyes LEAD WEB DEVELOPER-C Start: 05-05-2016 End: 05-05-2016 Ecg routine ecg w/least 12 lds w/i&r Cindy A Keyes LEAD WEB DEVELOPER-C Start: 05-05-2016 End: 05-05-2016 Follow Up Appt Other Cindy A Keyes LEAD WEB DEVELOPER-C Start: 12-05-2015 End: 12-05-2015 Comments: See Note; NOTES: [facility] [address] [place] [address] Fax REHABILITATION SERVICES DISCHARGE SUMMARY MR#: [id number] Acct: [id number] Name: KULWANT ANDRADE Rep #: [id number] : 1940 75 From: Vandana Chavez PT, Cert. T Referring Dr.: Javi Coronel Status: REG RCR Insurance: MEDICARE PART A B ANTHEM HP - Discharge Summary (1) - Patient Information KULWANT ANDRADE was seen in my office for initial evaluation on 09/19/15. The following Plan of Care was established for this patient: Initial Frequency: 3x /Week Initial Duration: 10 - Anticipated Interventions Patient/Client Instruction: Educate patient on: Condition, Plan of Care, Risk Factors, Benefits of Fitness Program For the Purpose of:: To improve self management Therapeutic Exercise to Include: Strength training, Body mechanics, Postural training, Dynamic Lumbar Stabilization For the Purpose of:: To improve ability of physical actions for home/community/work/leisu re Cryotherapy (ice pack, ice massage): Yes Ultrasound (thermal/non thermal): Yes For the Purpose of:: To decrease pain, To decrease swelling/inflammation This patient was last seen in our office . Pertinent comments regarding their Physical therapy will appear below: PATIENT HAS NOT RETURNED TO PT AND IS APPROPRIATE TO RETURN TO MD FOR FURTHER FOLLOW-UP NEEDED. At this point I will be discontinuing this patient from physical therapy. I would be happy to see this patient again in the future if found appropriate by the physician. Thank you! Vandana Chavez <Electronically signed by Vandana Chavez PT CertShane MDT> 12/05/15 1700 CC: Sherron Mercer DO; Javi Coronel BRUNA Signed Sherron Mercer DO Work Phone: Start: 11-05-2015 End: 11-05-2015 Follow Up Appt 6 months Geovanny Michelle MD Start: 11-05-2015 End: 11-05-2015 MMReji Michelle MD Start: 10-22-2015 End: 10-22-2015 Comments: See Note; NOTES: [facility] Medical Records Department [address] [place] [address] Emergency Department Summary MR#: [id number] Acct: [id number] Name: KULWANT ANDRADE Rep #: [id number] : 1940 75 From: iWlder Lee MD PCP: Sherron Mercer DO Status: DEP ER DATE OF SERVICE: 10/01/2015 CHIEF COMPLAINT: Sinus headache. HISTORY OF PRESENT ILLNESS: This is a 75-year-old gentleman who woke up with throbbing sternal headache this morning. He did not have headache last night when he went to bed. He denies neck pain, visual changes, fever or recent travel. He has no other associated ____ complaints. He does note that he has been under quite a lot of stress recently. He denies feeling depressed or suicidal. PHYSICAL EXAMINATION: VITAL SIGNS: Within normal limits except for mild hypertension. HEENT: His pupils are equal and reactive. NECK: Supple. HEART: Tones regular without murmur. LUNGS: Clear bilaterally. ABDOMEN: Bowel sounds present. There are focal or lateralizing findings. NEUROLOGIC: Completely normal. NIH is 0. EMERGENCY DEPARTMENT COURSE AND DECISION MAKING: He was ordered medication and after discussion with him, we ordered plain CT head and CTA to rule out aneurysm. We discussed the possibility of performing lumbar puncture, which is negative ____ of the CT ____ given that his pain started less than 6 hours ago. I feel that if the CT is negative, he is pretty low risk overall. He would prefer to avoid lumbar puncture if this is negative ____ reasonable. ____ oncoming physician, Dr. Frias. IMPRESSION: Acute headache, uncertain etiology. Ke Lee MD T: [facility] JOB: [id number] 10/22/15 0828 <Electronically signed by Wilder Lee MD> Date Wilder Lee MD Cosigner Signature (If Indicated): Date CC: Sherron Mercer DO Date Dictated: 10/12/152033 Date Transcribed: 10/12/152033 Steel Wheel Engraver: Signed Sherron Mercer DO Work Phone: Start: 10-16-2015 End: 10-16-2015 Comments: See Note; NOTES: [facility] Cardiovascular Services [address] [place] [address] Renal Artery Duplex Ultrasound 10/16/15 0857 MR#: [id number] Acct: [id number] Name: KULWANT ANDRADE Rep #: [id number] : 1940 75 From: Kulwant Epstein MD Attending Dr: Sherron Mercer DO Status: REG CLI Ordering Dr: Sherron Mercer DO Date: 10/16/15 Location: [facility] Sex: M C Admitted: Reason For Study: malignant hypertension Right Renal Artery Left Renal Artery Right renal artery ostium 131/48.1 Left renal artery ostium 91.1/ 25.4 RSV/EDV. PSV/EDV. Right renal artery proximal Left renal artery proximal PSV /EDV 162/55.0 PSV/EDV. 101/38.5 . Right renal artery mid 162/56.4 Left renal artery mid 137/49.5 PSV/EDV. PSV/EDV . Right renal artery distal 96.8/37.4 Left renal artery distal 89.5/ 32.8 PSV/EDV. PSV/EDV. Right RAR 1.9. Left RAR 1.6. Right Renal Parenchyma Left Renal Parenchyma Upper Pole Medula 40.2/16.5 Left upper pole medulla 32.5/ 12.7 PSV/EDV. PSV/EDV . Right upper pole medulla EDR .41 . Left upper pole medulla EDR .39 . Right upper pole medulla R.I. .59 . Left upper pole medulla R.I. .61 . Upper Krunal Cortx 29.2/14.9 PSV/EDV. UP Cortex 22.6/9.44 PSV/EDV. Right upper pole cortex EDR .51 . Left upper pole cortex EDR .42 . Right upper pole cortex R.I. .49 . Left upper pole cortex R.I. .58 . Right lower Pole medulla 25.9/13.2 Left lower Pole medulla 31.2/ 15.6 PSV/EDV . PSV/EDV . Right lower pole medulla EDR .51 . Left lower pole medulla EDR .5 . Right lower pole medulla R.I. .49 . Left lower pole medulla R.I. .5 . Lower Pole Cortex 26.4/8.25 Lower Pole Cortx 24.2/9.03 PSV /EDV. PSV/EDV. Left lower pole cortex EDR .37 . Right lower pole cortex EDR .31 . Left lower pole cortex R.I. .63 . Right lower pole cortex R.I. .69 . Left Renal Hilar Right Renal Hilar LT Hilar avg 35.7/15.2 PSV/EDV . Right hilar acceleration time 59 Left hilar acceleration time 66 m/sec. m/sec. Right Hilar avg 55.0/24.2 PSV/EDV. Left Renal Dimensions Right Renal Dimensions Left kidney size 12.2 cm . Right kidney size 9.3 cm . Left cortical dimension 1.75 cm . Right cortical dimension 1.55 cm . Hypoechoic area on the lower pole Patient has had prior mass removal. measuring 1.63 x 1.67 cm. Area is nonvascular. Hypoechoic area on the upper pole measuring 3.07 x 3.06 cm. Area is nonvascular. Aorta Proximal abdominal aorta 1.46 x 1.46 cm . Proximal abdominal aorta peak systolic velocity is 83.7 cm/sec . Distal abdominal aorta 1.37 x 1.44 cm . Distal abdominal aorta peak systolic velocity is 97.7 cm/sec . Nikita normal renal veins. Interpretation Summary Dimensions of the intra-abdominal aorta appear normal, without evidence of aneurysmal dilatation. Renal artery velocities are bilaterally normal. Acceleration times are normal bilaterally. Renal- aortic ratios are also bilaterally normal. There is no evidence of hemodynamically significant renal artery stenosis on either side. Renovascular resistance appears to be bilaterally normal . The right cortical dimension is increased. The left cortical dimension is increased. Kidneys are normal in size bilaterally, though the right kidney is more than 1 centimeter smaller than the left kidney. However, there is a history of prior right renal mass excision. A hypoechoic mass is noted in the left upper and lower kidney, with dimensions as documented above. These appear to represent renal cysts. Clinical correlation is advised. Ordering Physician: Sherron Mercer Performed By: Andrea Cole RVT 10/16/152148 Date Kulwant Epstein MD CC: Sherron Mercer DO Date Dictated: 10/16/15 0857 Date Transcribed: 10/16/152148 Steel Wheel Engraver: Signed Sherron Mercer DO Work Phone: Start: 10-16-2015 End: 10-16-2015 Comments: See Note; NOTES: [facility] Imaging Services [address] [place] [address] Verdana 4d Nuclear Stress Test - Treadmky MR#: [id number] Acct: [id number] Name: KULWANT ANDRADE Rep #: [id number] : 1940 75 From: Geovanny Michelle MD Primary Care: Sherron Mercer DO Status: REG CLI Ordering Dr: Sherron Mercer DO Sex: M C DATE OF SERVICE: 10/16/2015 EXERCISE TOLERANCE TEST: The patient exercised on a Asad protocol for 6 minutes completing stage 2, achieving a peak heart rate of 136 beats per minute (92% predicted maximum heart rate) and a peak blood pressure of rate of 208/92 mmHg and a peak MET capacity of 7 METs. The baseline ECG demonstrated normal sinus rhythm. The peak exercise ECG demonstrated significant somatic/motion artifact with no obvious ECG changes. There was an isolated PVC during exercise and occasional PVC during recovery. The functional capacity was considered average. The patient had no complaint of chest discomfort during exercise or recovery. The examination was discontinued secondary to dyspnea and knee discomfort. IMPRESSION: 1. Technically adequate (percent predicted maximum heart rate greater than 85%), exercise tolerance test. 2. Peak exercise ECG with significant somatic/motion artifact with no obvious ECG changes. 3. Isolated premature ventricular contractures during exercise and occasional premature ventricular contractures during recovery. 4. Nuclear images pending. MYOCARDIAL PERFUSION IMAGING STUDY: TECHNIQUE: The patient was injected with 11.3 mCi of Tc99m Cardiolite and subsequently rest SPECT Cardiolite nuclear imaging was obtained in the horizontal long, vertical long and short axes views. The patient exercised on a Asad protocol for 6 minutes completing stage 2, achieving a peak heart rate of 136 beats per minute (92% predicted maximum heart rate) and a peak blood pressure of 208/92 mmHg and a peak MET capacity of 7 METs. The patient was injected with 34.2 mCi of Tc99m Cardiolite and subsequently stress SPECT Cardiolite nuclear imaging was obtained in the horizontal long, vertical long and short axes views. A gated Cardiolite study at peak stress was obtained. INTERPRETATION: Rest and stress SPECT Cardiolite nuclear imaging, status post realignment and normalization, demonstrate areas of extracardiac/hepatic and gastrointestinal tracer uptake near the inferior segments, which appears to be much more prominent at rest as opposed to stress. At rest, there is notation of diminished tracer uptake in the basal to mid towards distal inferior segments, which appear to be less prominent and/or normalized following stress. There are similar type findings on the resting and stress polar map images. There is notation of end systolic thickening and brightening. The gated Cardiolite study demonstrates myocardial thickening and inward wall motion. The reported LVEF is 56%. The aforementioned findings appear compatible with the effects of shifting soft tissue attenuation/artifact and/or gastrointestinal tracer uptake/detraction being more prominent at rest as opposed to stress with no post-stress myocardial perfusion changes considered diagnostic for stress-induced myocardial ischemia or previous myocardial injury/infarction. IMPRESSION: 1. Rest and stress SPECT Cardiolite nuclear imaging demonstrate myocardial perfusion changes appearing compatible with the effects of shifting soft tissue attenuation/artifact and/or gastrointestinal tracer uptake/detraction being more prominent at rest as opposed to stress with no post-stress myocardial perfusion changes considered diagnostic for associated stress-induced myocardial ischemia or previous myocardial injury/infarction. 2. The gated Cardiolite study reports an LVEF of 56%. Geovanny Michelle MD T: [facility] JOB: [id number] 10/16/15 1443 <Electronically signed by Geovanny Michelle MD> Date Geovanny Michelle MD CC: Sherron Umesh FONTAINE Date Dictated: 10/16/15 1146 Date Transcribed: 10/16/15 114 Steel Wheel Engraver: Signed Sherron Jorge A Mercer DO Work Phone: Start: 10-08-2015 End: 10-08-2015 Ecg routine ecg w/least 12 lds w/i&r [MEASUREMENTS ANALYSIS] Date of Test: 10/08/2015 14:45:19; Heart Rate: 67; HI Interval: 184; QRS: 93; QT Interval: 420; Corrected QT Interval (QTc): 432; P Wave [place]: 32; QRS Wave [place]: -14; T Wave [place]: -1; Blood Pressure: 164/104 [ECG DIAGNOSTIC STATEMENTS] Date of Test: 10/08/2015 14:45:19; Summary: Sinus Rhythm WITHIN NORMAL LIMITS Sherron Mercer DO Work Phone: Start: 10-03-2015 End: 10-03-2015 Comments: See Note; NOTES: [facility] Medical Records Department [address] [place] [address] Discharge Instruction 10/01/15 1035 MR#: [id number] Acct: [id number] Name: KULWANT ANDRADE Rep #: [id number] : 1940 75 From: Ajay Frias MD PCP: Sherron Mercer DO Status: DEP ER ED Disposition - Plan for ED Patient: Chief Complaint: Headache Instructions: ED Headache, Unspecified Referrals: Sherron Mercer DO [Primary Care Provider] - 1-2 Days if not improving What to do if you have Problems For any increased pain, shortness of breath, bleeding, nausea or vomiting, chest pain, or any unexpected problems, contact your doctor. Call [facility] ([phone]) or report to the closest Emergency Room. Call 911 if necessary. 10/03/152334 <Electronically signed by Ajay Frias MD> Date Ajay Frias MD Cosigner Signature (If Indicated): Date CC: Sherron Lei DO Work Phone: Start: 10-03-2015 End: 10-03-2015 Comments: See Note; NOTES: [facility] Medical Records Department [address] [place] [address] Emergency Department Summary MR#: [id number] Acct: [id number] Name: KULWANT ANDRADE Rep #: [id number] : 1940 75 From: Ajay Frias MD PCP: Sherron Mercer DO Status: [facility] ER DATE OF SERVICE: 10/01/2015 ADDENDUM: This patient was checked out to me by Dr. Lee with labs and CT pending. These have returned. CBC is normal. Chem-7 is remarkable for a potassium of 3.3, chloride of 109, calcium of 8.4. CT of the head shows chronic changes. CT of the head shows no aneurysms. EMERGENCY DEPARTMENT COURSE: The patient is initially given morphine and Zofran IV and got mild relief of his headache, was nauseated and vomited once here. He was given Reglan and Benadryl IV as well as 0.5 mg of Dilaudid and his pain has essentially resolved. He is resting comfortably. TREATMENT PLAN: The patient will be discharged with instructions to follow up with Dr. Mercer in 1-2 days if not improving. DISPOSITION: Home, improved condition. IMPRESSION: Acute cephalgia. MD Rafy Contreras C: Sherron Mercer DO T: NTS JOB: [id number] 10/03/152334 <Electronically signed by Ajay Frias MD> Date Ajay Frias MD Cosigner Signature (If Indicated): Date CC: Sherron Mercer DO Date Dictated: 10/01/15 1037 Date Transcribed: 10/01/15 1037 Steel Wheel Engraver: Signed Sherron Mercer DO Work Phone: Start: 10-01-2015 End: 10-01-2015 Comments: See Note; NOTES: [facility] Imaging Services [address] [place] [address] Verdana 4d CTA Head W/WO Contrast MR#: [id number] Acct: [id number] Name: KULWANT ANDRADE Rep #: [id number] : 1940 M 75 From: Charanjit Smith MD PCP: Sherron Mercer DO Status: REG ER Study: CTA Head W/WO Contrast Date of Exam: 10/01/15 Exam# [id number] Ordering Dr: Wilder Lee MD STUDY: CTA OF THE BRAIN REASON FOR EXAM: Male, 75 years old. Right-sided orbital headaches. RADIATION DOSAGE (If Supplied By Facility): CTDIvol = ( 49.65 ) mGy, DLP = ( 1085.12 ) mGycm TECHNIQUE: CT angiography was performed with a multi-detector CT scanner. Data acquisition was obtained from the skull base through the vertex following intravenous administration of 100 ml of Isovue-370. MIP images were reconstructed from the axial data set. Post-processing of the angiographic images was performed, with multiplanar reformation and 3D reconstruction. Individualized dose optimization techniques were used for this CT. COMPARISON: None. FINDINGS: Normal bilateral petrous carotid arteries. There is calcified plaque formation of the right cavernous carotid artery, without a cross-sectional luminal stenosis. There is calcified plaque formation of the left cavernous carotid artery, without a cross-sectional luminal stenosis. Normal right A1 segments of the anterior cerebral artery. Normal left A1 segments of the anterior cerebral artery. Normal intact anterior communicating artery (ACOM). Normal bilateral A2 segments of the anterior cerebral arteries. Normal right M1 and M2 segments of the middle cerebral arteries, with a normal M1 bifurcation. Normal left M1 and M2 segments of the middle cerebral arteries, with a normal M1 bifurcation. Normal right posterior communicating artery (PCOM). Normal left posterior communicating artery (PCOM). Normal bilateral vertebral arteries. Normal basilar artery with a normal basilar bifurcation. The visualized bilateral superior cerebellar (SCA) arteries are normal. Normal bilateral P1, P2 and visualized P3 segments of the posterior cerebral arteries. There is no demonstrated aneurysm of the pitka's point of [place]. 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 Decreased attenuation in the right temporal lobe suggestive of prior ischemic change. Mucosal thickening of the right maxillary sinus and ethmoid sinus. IMPRESSION: No acute abnormality is seen. Electronically Signed: Charanjit Smith MD at 8:01 EDT Tel [phone], Service support [phone], CC: Ke Lee MD; Sherron Mercer DO Steel Wheel Engraver: Signed Sherron Mercer DO Work Phone: Start: 10-01-2015 End: 10-01-2015 Comments: See Note; NOTES: [facility] Imaging Services [address] [place] [address] Verdana 4d Brain/Head without Contrast MR#: [id number] Acct: [id number] Name: KULWANT ANDRADE Rep #: [id number] : 1940 M 75 From: Charanjit Smith MD PCP: Sherron Mercer DO Status: [facility] ER Study: Brain/Head without Contrast Date of Exam: 10/01/15 Exam# [id number] Ordering Dr: Wilder Lee MD STUDY: CT BRAIN WITHOUT CONTRAST REASON FOR EXAM: Male, 75 years old. Headaches. Hypertension. RADIATION DOSAGE (If Supplied By Facility): CTDIvol = ( 58.44 ) mGy, DLP = ( 1066.59 ) mGycm TECHNIQUE: Transaxial CT imaging of the brain was performed without administration of intravenous contrast material. Individualized dose optimization techniques were used for this CT. COMPARISON: None. FINDINGS: Normal soft tissue structures. Normal calvarium. There is mild cerebral atrophy with widening of the extra-axial spaces and ventricular dilatation. There are areas of decreased attenuation within the white matter tracts of the supratentorial brain, consistent with microvascular disease changes. There is evidence of old lacunar infarct in the right basal ganglia as well as in the right temporal lobe. Normal brainstem. Normal cerebellum. There is no intracranial hemorrhage. There are no findings of an acute ischemic infarction. Calcification of the cavernous portions of the internal carotid arteries bilaterally. Mucosal thickening of the right maxillary sinus and ethmoid sinus. IMPRESSION: Chronic involutional changes of the brain. Electronically Signed: Charanjit Smith MD at 7:51 EDT Tel [phone], Service support [phone], CC: Ke Lee MD; Sherron Mercer DO Steel Wheel Engraver: Signed Sherron Mercer DO Work Phone: Start: 09-19-2015 End: 09-19-2015 Comments: See Note; NOTES: [facility] [address] [place] [address]. [address] [place] [address] Fax REHABILITATION SERVICES INITIAL EVALUATION MR#: [id number] Acct: [id number] Name: KULWANT ANDRADE Rep #: [id number] : 1940 75 From: Vandana Chavez PT, Cert. T Referring DrShane: Javi Coronel Status: REG RCR Insurance: MEDICARE PART A B Eval Date: ANTHEM Patient's Visit Information KULWANT ANDRADE is a 75 year old M referred to Physical Therapy by Javi Coronel with a diagnosis of . Date of Evaluation: 09/19/15 Physical Therapist: Vandana Chavez - Visit Plan Frequency: 3x /Week Duration: 10 - Subjective Subjective: THIS PATIENT PRESENTS TO PT WITH C/O LBP, BUTTOCK PAIN AND BILATERAL THIGH PAIN TO HIS KNEES. HE HAD A LUMBAR FUSION IN 200 BUT RECENTLY FLARED IT UP A WEEK AGO DIGGING IN A DITCH. HE HAS ALSO RECENTLY BEEN HAVING TROUBLE WITH SWELLING IN HIS LEGS BEING TREATED BY DR. MERCER. HIS LBP AND NIKITA THIGH PAIN IS RANGING 2-6/10. HIS PAIN IS BETTER IN THE MORNING AND GETTS WORSE THE DAY PROGRESSES. HE REPORTS DR. CORONEL HAD HIM HAVE X-RAYS AND THEY REVEALED SI JOINT ARTHRITIS AND DETERIORATION AT THE LEVEL ABOVE HIS FUSION. HE TRIED TAKING PRESCRIPTION ANTI-INFLAMMATORY BUT IT UPSET HIS STOMACH SO HE IS TAKING TYLONOL ARTHRITIS NOW. HE REPORTS HE IS GETTING BETTER GRADUALLY. INTERMITTENT NUMBNESS AND TINGLING LB AND NIKITA HIPS/ THIGHS. PMH: HTN, NEUROPATHY AND FIBROMYALGIA. 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 - Objective THIS PATIENT ABMULATES INDEP'LY INTO PT WITHOUT ANY ASSISTIVE DEVICES OR GROSS DEVIATIONS NOTED. HE IS UNABLE TO SLS ON THE LEFT LE GREATER THAN 6 SEC AND THE RIGHT MORE THAN 10 SEC WITHOUT UE SUPPORT. HE IS ABLE TO TRANSFER INDEP'LY FROM SIT TO STAND WITHOUT UE SUPPORT BUT IT IS DIFFICULT. HE HAS POOR POSTURAL CONTROL AND STRENGTH. POOR CORE STRENGTH. INCREASED KYPHOSIS AND POST RIGHT RIB/KIDNEY SURGERY. RECUCED LUMBAR LORDOSIS AND YOLANDA LUMBAR MVMT LOSS ALL PLANES EXCEPT FLEX WHICH IS MODERATE. NEGATIVE NIKITA LE DURAL SIGNS. NIKITA LE STRENGTH IS 5/5 WITH MMT. NIKITA LE LIGHT TOUCH SENSATION IS INTACT AND SYMMETRICAL (FEET NT) - Goals Goal 1:: DECREASE C/O LBP Goal Time Frame: 2-4 Weeks Goal 2:: DECREASE NIKITA LE SX'S Goal Time Frame: 2-4 Weeks Goal 3:: IMPROVE BENDING, LIFTING, RISING FORM SITTING, STANDING, WALKING, AND LEISURE ACTIVITY Goal Time Frame: 2-4 Weeks Goal 4:: INSTRUCT IN PROPHYLAXIS Goal Time Frame: 2-4 Weeks - Rehabilitation Potential Rehabilitation Potential: Good - Anticipated Interventions Patient/Client Instruction: Educate patient on: Condition, Plan of Care, Risk Factors, Benefits of Fitness Program For the Purpose of:: To improve self management Therapeutic Exercise to Include: Strength training, Body mechanics, Postural training, Dynamic Lumbar Stabilization For the Purpose of:: To improve ability of physical actions for home/community/work/leisu re Cryotherapy (ice pack, ice massage): Yes Ultrasound (thermal/non thermal): Yes For the Purpose of:: To decrease pain, To decrease swelling/inflammation Thank you for the opportunity to evaluate your patient. For Medicare and Medicare HMO plans, please review the plan of care and approve it. It will need to be FAXED BACK to us at [phone] for Medicare purposes. Please let me know if there are questions or concerns regarding this plan of care. Physician Signature: Date: _ <Electronically signed by Vandana Chavez PT, Cert. MDT> 09/19/15 1121 CC: Sherron Mercer DO; Javi Coronel BRUNA Signed For Medicare only, by signing this I certify the plan of care. ___ Physicians Signature Date Sherron Mercer DO Work Phone: Start: 08-08-2015 End: 08-08-2015 Comments: See Note; NOTES: [facility] Imaging Services [address] [place] [address] Verdana 4d Foot min 3 Views MR#: [id number] Acct: [id number] Name: KULWANT ANDRADE Rep #: [id number] : 1940 M 74 From: Charanjit Smith MD PCP: Sherron Mercer DO Status: REG CLI Study: Foot min 3 Views Date of Exam: 08/08/15 Exam# [id number] Ordering Dr: Sherron Mercer DO STUDY: X-RAY - RIGHT FOOT CLINICAL: Male, 74 years old. Pain and swelling. No known injury. TECHNIQUE: 3 view(s) of the foot. COMPARISON: None. FINDINGS: There is an enthesophyte involving the posterior superior calcaneus at the site of insertion of the Achilles tendon. Normal visualized subtalar, talonavicular, calcaneocuboid, tarsal and tarsometatarsal articulations. Normal metatarsi. There is degenerative arthrosis of the metatarsophalangeal joint of the hallux . Normal tibial and fibular sesamoid bones. Normal interphalangeal joint of the great toe. Normal phalanges of the great toe. Normal second through fifth metatarsophalangeal joints. Normal interphalangeal joints and phalanges of the lesser toes. There is non-specific soft tissue swelling of the foot. Vascular calcification. IMPRESSION: Soft tissue swelling. Vascular calcifications Electronically Signed: Charanjit Smith MD at 13:43 EST Tel [phone], Service support [phone], RAD/Foot min 3 Views IMPRESSION: Soft tissue swelling. Vascular calcifications Electronically Signed: Charanjit Smith MD at 13:43 EST Tel [phone], Service support [phone], CC: Sherron Mercer DO Steel Wheel Engraver: Signed Sherron Mercer DO Work Phone: Start: 08-08-2015 End: 08-08-2015 Comments: See Note; NOTES: [facility] Imaging Services [facility] [place] [address] Verdana 4d Knee 4 or More Views MR#: [id number] Acct: [id number] Name: KULWANT ANDRADE Rep #: [id number] : 1940 74 From: Charanjit Smith MD PCP: Sherron Mercer DO Status: REG CLI Study: Knee 4 or More Views Date of Exam: 08/08/15 Exam# [id number] Ordering Dr: Sherron Mercer DO STUDY: X-RAY - RIGHT KNEE REASON FOR EXAM: Male, 74 years old. Pain. No known injury. TECHNIQUE: 4 view(s) of the knee. COMPARISON: None. FINDINGS: Normal visualized distal femur. Normal visualized proximal tibia and fibula. Normal proximal tibiofibular articulation. There is moderate degenerative arthrosis of the medial femorotibial compartment with moderate joint space narrowing. Normal lateral femorotibial compartment. Normal patellofemoral articulation. The soft tissue structures are unremarkable. IMPRESSION: Degenerative arthrosis. Electronically Signed: Charanjit Smith MD at 13:41 EST Tel [phone], Service support [phone], RAD/Knee 4 or More Views IMPRESSION: Degenerative arthrosis. Electronically Signed: Charanjit Smith MD at 13:41 EST Tel [phone], Service support [phone], CC: Sherron Mercer DO Steel Wheel Engraver: Signed Sherron Mercer DO Work Phone: Start: 03-20-2015 End: 03-20-2015 Documentation of current medications Rina Olivier PA-C Work Phone: Start: 03-20-2015 End: 03-20-2015 Follow Up Appt 6 months Rina Olivier PA-C Work Phone: Start: 03-20-2015 End: 03-20-2015 Follow Up Appt Other Rina Olivier PA-C Work Phone: Start: 03-20-2015 End: 03-20-2015 [facility] Rina Olivier PA-C Work Phone: Start: 03-18-2015 End: 03-18-2015 Comments: See Note; NOTES: [facility] Cardiovascular Services [address] [place] [address] Carotid Duplex Ultrasound 03/15/15 1057 MR#: [id number] Acct: [id number] Name: KULWANT ANDRADE Rep #: [id number] : 1940 74 From: Nils Lopez MD Attending Dr: Sherron Mercer DO Status: REG CLI Ordering Dr: Sherron Mercer DO Date: 03/15/15 Location: [facility] Sex: M C Admitted: Rt. Velocities/BP Lt. Velocities/BP Prox CCA 93.2/16.4 cm/sec. Prox CCA 87.9/24.6 cm/sec. Mid CCA 102.0/25.2 cm/sec. Mid CCA 88.5/25.2 cm/sec. Dist CCA 101.0/24.6 cm/sec. Dist CCA 79.2/24.6 cm/sec. Prox ICA 53.9/16.4 cm/sec. Prox ICA 69.8/24.6 cm/sec. Mid ICA 63.3/25.8 cm/sec. Mid ICA 65.1/28.7 cm/sec. Dist ICA 46.5/16.7 cm/sec. Dist ICA 46.7/20.6 cm/sec. Rt. ICA/CCA = .62. Lt. ICA/CCA = .79. Prox ECA 59.2/11.1 cm/sec. Prox ECA 74.5/15.8 cm/sec. Rt. Vert. 49.8/18.2 cm/sec. Lt. Vert. 42.2/11.7 cm/sec. Right Extracranial There is intimal thickening but no significant atherosclerotic plaque noted in the right common carotid artery. There is homogeneous, smooth atherosclerotic plaque noted in the right internal carotid artery. There is no significant atherosclerotic plaque noted in the right external carotid artery. Antegrade flow is noted in the right vertebral artery. There is heterogeneous, irregular atherosclerotic plaque noted in the right bulb. Left Extracranial There is intimal thickening but no significant atherosclerotic plaque noted in the left common carotid artery. There is homogeneous, smooth atherosclerotic plaque noted in the left internal carotid artery. There is no significant atherosclerotic plaque noted in the left external carotid artery. Antegrade flow is noted in the left vertebral artery. There is heterogeneous, irregular atherosclerotic plaque noted in the left bulb. Procedure Carotid Duplex [id number]. Exam performed in department. Interpretation Summary Mild (<50%) stenosis right extracranial internal carotid. Mild (<50%) stenosis left extracranial internal carotid. Flow within the vertebral arteries is antegrade bilaterally. Ordering Physician: Sherron Mercer Performed By: Marie Cortez RVT 03/18/15 1748 Date Nils Lopez MD CC: Sherron Mercer DO Date Dictated: 03/15/15 1057 Date Transcribed: 03/18/151747 Steel Wheel Engraver: Signed Sherron Mercer DO Work Phone: Start: 09-20-2014 End: 09-21-2014 Documentation of current medications Geovanny Michelle MD Start: 09-20-2014 End: 09-20-2014 Follow Up Appt 6 months Geovanny Michelle MD Start: 09-20-2014 End: 09-20-2014 MMM Geovanny Michelle MD Start: 05-03-2014 End: 05-03-2014 Ecg routine ecg w/least 12 lds w/i&r Rina Olivier PA-C Work Phone: Start: 05-03-2014 End: 05-03-2014 Follow Up Appt Other Rina Olivier PA-C Work Phone: Start: 05-03-2014 End: 05-03-2014 PFM Rina Olivier PA-C Work Phone: Start: 04-18-2014 End: 04-18-2014 Comments: See Note; NOTES: [facility] Cardiovascular Services [address] [address] Carotid Duplex Ultrasound 04/17/14 1103 MR#: [id number] Acct: [id number] Name: KULWANT ANDRADE Rep #: [id number] : 1940 73 From: Nils Lopez MD Attending Dr: Sherron Mercer DO Status: REG CLI Ordering Dr: Sherron Mercer DO Date: 04/17/14 Location: [facility] Sex: M C Admitted: Rt. Velocities/BP Lt. Velocities/BP Prox CCA 115/27.5 cm/sec. Prox CCA 97.4/ 27.5 cm/sec. Mid CCA 92.7/31.4 cm/sec. Mid CCA 106/33.8 cm/sec. Dist CCA 76.2/22.9 cm/sec. Dist CCA 94.3/ 25.9 cm/sec. Prox ICA 72.7/27.6 cm/sec. Prox ICA 68.6/ 22.3 cm/sec. Mid ICA 51.9/13.5 cm/sec. Mid ICA 66.3/21.1 cm/sec. Dist ICA 40.5/17.1 cm/sec. Dist ICA 55.1/ 24.0 cm/sec. Rt. ICA/CCA = .8. Lt. ICA/CCA = .64. Prox ECA 85.6/16.4 cm/sec. Prox ECA 91.1/ 14.9 cm/sec. Rt. Vert. 38.5/13.7 cm/sec. Lt. Vert. 40.9/ 12.6 cm/sec. Right Extracranial There is homogeneous, smooth atherosclerotic plaque noted in the right common carotid artery. There is homogeneous, smooth atherosclerotic plaque noted in the right internal carotid artery. There is intimal thickening but no significant atherosclerotic plaque noted in the right external carotid artery. Antegrade flow is noted in the right vertebral artery. There is heterogeneous, irregular atherosclerotic plaque noted in the left bulb. Left Extracranial There is intimal thickening but no significant atherosclerotic plaque noted in the left common carotid artery. There is intimal thickening but no significant atherosclerotic plaque noted in the left internal carotid artery. There is intimal thickening but no significant atherosclerotic plaque noted in the left external carotid artery. Antegrade flow is noted in the left vertebral artery. There is heterogeneous, irregular atherosclerotic plaque noted in the left bulb. Interpretation Summary Mild (<50%) stenosis right extracranial internal carotid. Mild (<50%) stenosis left extracranial internal carotid. Flow within the vertebral arteries is antegrade bilaterally. ____ Ordering Physician: Sherron Mercer Performed By: Deana Marcano RDCS 04/18/142055 Date Nils Lopez MD CC: Sherron Mercer DO Date Dictated: 04/17/14 1103 Date Transcribed: 04/18/142055 Steel Wheel Engraver: Signed Sherron Mercer DO Work Phone: Start: 10-10-2013 End: 10-10-2013 Comments: See Note; NOTES: [facility] Medical Records Department [address] [place] [address] Emergency Department Summary MR#: [id number] Acct: [id number] Name: KULWANT ANDRADE Rep #: [id number] : 1940 73 From: Geovanny Arias MD PCP: Sherron Mercer DO Status: DEP ER DATE OF SERVICE: 09/25/2013 CHIEF COMPLAINT: Abdominal pain. HISTORY OF PRESENT ILLNESS: This is a 73-year-old with abdominal pain. Started yesterday, his main concern is dysuria, frequency and urgency, which he has had also since yesterday. He has intermittent abdominal pain, which is slight. He has no flank pain. His pain is suprapubic and bilateral. PHYSICAL EXAMINATION: VITAL SIGNS: Unremarkable vitals. LUNGS: Clear. ABDOMEN: Soft. Some slight tenderness suprapubic. Normal external genitalia, no CVA tenderness. EMERGENCY DEPARTMENT COURSE: CT flank unremarkable. CBC, chemistries were unremarkable. Urinalysis was quite positive for urinary tract infection. This is likely the source of his symptoms. He has a slight leukocytosis of 16,000. We will treat him with Rocephin IV [facility]. IMPRESSION: Urinary tract infection. DISPOSITION: Home, stable condition. Geovanny Arias MD T: NTS JOB: [id number] 10/10/13 0817 <Electronically signed by Geovanny Arias MD> Date Geovanny Arias MD CC: Sherron Mercer DO Date Dictated: 09/25/13 1436 Date Transcribed: 09/25/13 143 Steel Wheel Engraver: Signed Sherron Mercer DO Work Phone: Start: 09-25-2013 End: 09-26-2013 Comments: See Note; NOTES: [facility] Medical Records Department [address] [place] [address] Discharge Instruction 09/25/13 1439 MR#: [id number] Acct: [id number] Name: KULWANT ANDRADE Rep #: [id number] : 1940 73 From: Geovanny Arias MD PCP: Sherron Mercer DO Status: [facility] ER ED Disposition - Plan for ED Patient: Chief Complaint: Complaint Instructions: Understanding Urinary Tract Infections (UTIs) Prescriptions: Levofloxacin [Levaquin] 750 mg PO DAILY #5 tablet Referrals: Sherron eMrcer DO [Primary Care Provider] - 3-5 Days What to do if you have Problems For any increased pain, shortness of breath, bleeding, nausea or vomiting, chest pain, or any unexpected problems, contact your doctor. Call [facility] ( [phone]) or report to the closest Emergency Room. Call 911 if necessary. 09/25/13 1440 <Electronically signed by Geovanny Arias MD> Date Geovanny Arias MD CC: Sherron Fast DO Sherron A Fast DO Work Phone: Start: 09-25-2013 End: 09-26-2013 Comments: See Note; NOTES: [facility] Imaging Services [address] [place] [address] CAT Scan Report MR#: [id number] Acct: [id number] Name: KULWANT ANDRADE Rep #: [id number] : 1940 73 From: Rl Langston DO PCP: Sherron Mercer DO Status: REG ER Study: Abdomen/Pelvis without Cont Date of Exam: 09/25/13 Exam# [id number] Ordering Dr: Geovanny Arias MD STUDY: CT ABDOMEN AND PELVIS WITHOUT CONTRAST REASON FOR EXAM: Male, 73 years old. Bilateral groin pain. History of right renal tumor surgically removed. RADIATION DOSAGE (If Supplied By Facility): CTDIvol = ( 12.71 ) mGy, DLP = ( 688.94 ) mGycm TECHNIQUE: Transaxial images were obtained from the dome of the diaphragm to the symphysis pubis without oral contrast, and without intravenous contrast. Sagittal and coronal images were reconstructed. COMPARISON: None. FINDINGS: Minimal pleural-based densities are present in the left lung base. This may be fibrotic in origin. The visualized portions of the heart are within normal limits. Normal liver. There is non-visualization of the gallbladder, which may be secondary to either contraction or a prior cholecystectomy. Normal spleen. Normal pancreas. Normal bilateral adrenal glands. Right kidney size is stable. Configuration remains stable from prior study. There is no definite renal mass visible. No hydronephrosis demonstrated Ureter is decompressed as visualized. Left kidney size is stable. There are 3 cysts in the right kidney that are slightly increased in size on prior exam. The largest cyst in superior pole measures 2.7 cm in maximal diameter. There is no hydronephrosis. Ureter is decompressed. Normal visualized stomach. There is some mild distention of proximal jejunal loops. This is similar finding from prior study. There is a moderate amount of gas identified throughout the colon without definite obstruction. No definite pericolonic inflammatory changes are visible. There is non-visualization of the appendix. Mild atheromatous changes of the aorta are present. Normal inferior vena cava. Normal retroperitoneum. The urinary bladder is decompressed. There is circumferential wall thickening associated with the bladder. The prostate gland is moderately prominent in size. Seminal vesicles are symmetric. The fascial planes adjacent to the seminal vesicles are not well-defined. There appears be a small moderate fluid in the scrotal sac bilaterally. There is a small umbilical hernia containing fat. There are postsurgical residuals at L4-L5 and S1 with pedicle screws noted bilaterally. The configuration spine is not significantly changed from the prior exam. IMPRESSION: There is significant gaseous distention of colon without obstruction. A mild amount of gaseous distention of jejunum is identified with a similar configuration to prior exam. This does not appear obstructed. Postsurgical residual lower lumbar spine. Normal noncontrast CT appearance of the right kidney. 3 cysts are identified in the left kidney. The largest cyst is slightly increased in size from prior exam. There is no hydronephrosis. Prostate is mildly enlarged. The fascial planes adjacent to the seminal vesicles are slightly ill-defined. Prostatitis is a diagnostic consideration. There is circumferential wall thickening of the urinary bladder. This may be secondary to incomplete distention versus chronic cystitis. Correlate. Small amount of fluid is suggested in the scrotal sac. 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 Correlate with exam. Electronically Signed: Arron Irizarry DO at 14:14 EDT , Service support [phone], CC: Sherron Mercer DO; OUT OF TOWN DOCTOR; Geovanny Arias MD Steel Wheel Engraver: Signed Sherron Jules Fast DO Work Phone: Start: 09-19-2013 End: 09-19-2013 Follow Up Appt 6 months Geovanny Michelle MD Start: 09-19-2013 End: 09-19-2013 MMM Geovanny Michelle MD Start: 01-25-2013 End: 01-25-2013 Ecg routine ecg w/least 12 lds w/i&r Rina Olivier PA-C Work Phone: Start: 01-25-2013 End: 01-25-2013 Follow Up Appt 6 months Rina Olivier PA-C Work Phone: Start: 01-25-2013 End: 01-25-2013 Follow Up Appt Other Rina Olivier PA-C Work Phone: Start: 01-25-2013 End: 01-25-2013 PFM Rian Olivier PA-C Work Phone: Start: 07-26-2012 End: 07-26-2012 Follow Up Appt 6 months Geovanny Michelle MD Start: 07-26-2012 End: 07-26-2012 MM Geovanny Michelle MD Start: 01-16-2012 End: 01-17-2013 Ecg routine ecg w/least 12 lds w/i&r Geovanny Michelle MD Start: 01-16-2012 End: 01-17-2013 Echocardiography Geovanny Michelle MD Start: 01-16-2012 End: 01-17-2013 Follow Up Appt 6 months Geovanny Michelle MD Benign neoplasm of k serenaney (disorder) DR DAY NEWBERRY MD Cholecystectomy DR DAY NEWBERRY MD Coronary artery bypa ss grafts x 3 DR DAY NEWBERRY MD Coronary artery sten t (physical object) DR DAY NEWBERRY MD Extraction of cataract DR YELENA BHATT Comment on above: bilateral History of arthrosco py of knee joint DR DAY NEWBERRY MD Comment on above: bilateral History of operative procedure on knee S/P knee surgery Juan Rodriguez 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-C Work Phone: Insertion of inferio r vena caval filter DR DAY NEWBERRY MD Lumbar spinal fusion DR ENRICO NEWBERRY MD Comment on above: L4-L5 Urine culture Dr. Jose Hooks Work Phone: Urine culture Dr. Jose Hooks Work Phone: Urine culture Dr. Jose Hooks Work Phone: Plan of Treatment Date Care Activity Detail Author Start: 11-14-2024 [facility] Start: 08-16-2024 [facility] Start: 04-28-2024 Patient discharge [facility] Start: 04-26-2024 [facility] Start: 04-25-2024 Application of intermittent pneumatic compression device [facility] Start: 04-25-2024 Referral to gastroenterology service [facility] Start: 04-25-2024 Assessment of risk of venous thromboembolism [facility] Start: 04-25-2024 Insertion of catheter into peripheral vein [facility] Start: 04-25-2024 Measuring intake and output [facility] Start: 04-25-2024 Providing care according to standard [facility] Start: 04-25-2024 Referral to occupational therapist [facility] Start: 04-25-2024 Referral to service [facility] Start: 04-25-2024 [facility] Start: 04-25-2024 Following clinical pathway protocol [facility] Start: 04-25-2024 Admission procedure [facility] Start: 10-03-2023 Patient discharge [facility] Start: 10-01-2023 Bacteria identified in Blood by Culture Blood Culture [facility] Start: 10-01-2023 Blood culture [facility] Start: 10-01-2023 [facility] Start: 09-30-2023 Following clinical pathway protocol [facility] Start: 09-30-2023 Application of intermittent pneumatic compression device [facility] Start: 09-30-2023 Assessment of risk of venous thromboembolism [facility] Start: 09-30-2023 Documentation procedure [facility] Start: 09-30-2023 Insertion of catheter into peripheral vein [facility] Start: 09-30-2023 Measuring intake and output [facility] Start: 09-30-2023 Providing care according to standard [facility] Start: 09-30-2023 Provision of activity privileges [facility] Start: 09-30-2023 Referral to service [facility] Start: 09-30-2023 [facility] Start: 09-30-2023 Verification routine [facility] Start: 09-30-2023 Admission procedure [facility] Start: 09-30-2023 Hospital admission, emergency, from emergency room, medical nature [facility] Start: 09-30-2023 Bacteria identified in Urine by Culture [facility] Start: 09-30-2023 [facility] Start: 06-03-2023 Patient discharge [facility] Start: 05-30-2023 Partial thromboplastin time, activated [facility] Start: 05-30-2023 Referral to vascular surgeon [facility] Start: 05-30-2023 Patient discharge [facility] Start: 05-30-2023 Referral to service [facility] Start: 05-29-2023 End: 05-30-2023 [facility] Start: 05-29-2023 Assessment of risk of venous thromboembolism [facility] Start: 05-29-2023 Fall prevention [facility] Start: 05-29-2023 Inhalation therapy procedure [facility] Start: 05-29-2023 Insertion of catheter into peripheral vein [facility] Start: 05-29-2023 Introduction of urinary catheter [facility] Start: 05-29-2023 Measuring intake and output [facility] Start: 05-29-2023 Oxygen therapy [facility] Start: 05-29-2023 Providing care according to standard [facility] Start: 05-29-2023 Provision of activity privileges [facility] Start: 05-29-2023 Referral to gastroenterology service [facility] Start: 05-29-2023 Referral to occupational therapist [facility] Start: 05-29-2023 Referral to service [facility] Start: 05-29-2023 Following clinical pathway protocol [facility] Start: 05-29-2023 Admission procedure [facility] Start: 05-29-2023 Hospital admission, emergency, from emergency room, medical nature [facility] Start: 05-29-2023 Partial thromboplastin time, activated [facility] Start: 05-29-2023 Prothrombin time [facility] Start: 05-29-2023 Esophagogastroduodenoscopy transoral diagnostic EGD DIAGNOSTIC BRUSH WASH [facility] Start: 05-23-2023 Referral to service [facility] Start: 05-23-2023 Patient discharge [facility] Start: 05-22-2023 Procedure [facility] Start: 05-21-2023 Blood chemistry [facility] Start: 05-20-2023 Telemedicine consultation with patient [facility] Start: 05-20-2023 Following clinical pathway protocol [facility] Start: 05-20-2023 Assessment of risk of venous thromboembolism [facility] Start: 05-20-2023 Cardiac monitoring [facility] Start: 05-20-2023 Catheterization of vein [facility] Start: 05-20-2023 Continuous pulse oximetry [facility] Start: 05-20-2023 Electroencephalogram [facility] Start: 05-20-2023 Elevation of head of bed [facility] Start: 05-20-2023 Exercises [facility] Start: 05-20-2023 Implementation of planned interventions [facility] Start: 05-20-2023 Insertion of catheter into peripheral vein [facility] Start: 05-20-2023 Measuring intake and output [facility] Start: 05-20-2023 MRI of brain without contrast Brain without Contrast [facility] Start: 05-20-2023 Notification of physician [facility] Start: 05-20-2023 Oxygen therapy [facility] Start: 05-20-2023 Providing care according to standard [facility] Start: 05-20-2023 Provision of activity privileges [facility] Start: 05-20-2023 Referral to occupational therapist [facility] Start: 05-20-2023 Referral to service [facility] Start: 05-20-2023 Speech therapy assessment [facility] Start: 05-20-2023 Tobacco use cessation education [facility] Start: 05-20-2023 [facility] Start: 05-20-2023 Vital signs measurements [facility] Start: 05-20-2023 Verification routine [facility] Start: 05-20-2023 Admission procedure [facility] Start: 05-20-2023 Oxygen therapy [facility] Start: 05-20-2023 Thyroid stimulating hormone measurement [facility] Start: 01-12-2023 Patient referral to [facility] Start: 01-06-2023 Patient referral [facility] Work Phone: Start: 01-06-2023 Patient discharge [facility] Start: 01-05-2023 Following clinical pathway protocol [facility] Start: 01-05-2023 Admission procedure [facility] Start: 01-05-2023 Ambulation without limitation [facility] Start: 01-05-2023 Cardiac monitoring [facility] Start: 01-05-2023 Cardiac rehabilitation - phase 1 [facility] Start: 01-05-2023 Cardiac rehabilitation - phase 2 [facility] Start: 01-05-2023 Notification of physician [facility] Start: 01-05-2023 Oxygen therapy [facility] Start: 01-05-2023 Patient discharge [facility] Start: 01-05-2023 Provision of activity privileges [facility] Start: 01-05-2023 Taking patient vital signs [facility] Start: 01-05-2023 Vascular disease risk assessment [facility] Start: 01-05-2023 Vital signs measurements [facility] Start: 01-05-2023 End: 01-05-2023 [facility] Start: 07-22-2022 [facility] Start: 08-05-2021 [facility] Start: 10-07-2017 End: 10-07-2017 Appointment Appointment [facility] Work Phone: Start: 05-05-2017 End: 05-05-2017 Appointment Appointment [facility] Work Phone: Start: 04-27-2017 End: 04-28-2017 Colonoscopy flx dx w/collj spec when pfrmd Colonoscopy [facility] Work Phone: Start: 02-11-2017 End: 02-11-2017 Follow Up Appt 6 months Follow Up Appt 6 months [facility] Work Phone: Start: 02-11-2017 End: 02-11-2017 PFM PFM [facility] Work Phone: Start: 11-26-2016 End: 11-26-2016 Nephrology Referral Nephrology Referral Karis Ca, [facility] [address], [address], [place], [address] [facility] Work Phone: Start: 11-10-2016 End: 11-11-2016 Venous doppler Venous doppler [facility] Work Phone: Start: 11-03-2016 End: 11-20-2016 *BMP *BMP [facility] Work Phone: Start: 11-03-2016 End: 11-03-2016 Follow Up Appt 3 months Follow Up Appt 3 months [facility] Work Phone: Start: 11-03-2016 End: 11-03-2016 MMM MMM [facility] Work Phone: Start: 10-14-2016 End: 10-15-2016 Renal doppler Renal doppler [facility] Work Phone: Start: 10-14-2016 End: 10-15-2016 Us abdominal real time w/image limited US Kidney [facility] Work Phone: Start: 09-05-2016 End: 09-08-2016 Ambulatory BP Monitor 24 HR Ambulatory BP Monitor 24 HR [facility] Work Phone: Start: 08-08-2016 End: 2016 *BMP *BMP [facility] Work Phone: Start: 08-08-2016 End: 08-08-2016 Follow Up Appt Other Follow Up Appt Other [facility] Work Phone: Start: 06-13-2016 End: 06-13-2016 Ecg routine ecg w/least 12 lds w/i&r EKG (In office) [facility] Work Phone: Start: 06-13-2016 End: 06-13-2016 Follow Up Appt Other Follow Up Appt Other [facility] Work Phone: Start: 06-13-2016 End: 06-13-2016 MMM MMM [facility] Work Phone: Start: 05-08-2016 End: 05-13-2016 *BMP *BMP [facility] Work Phone: Start: 05-08-2016 End: 05-08-2016 Echocardiography Echocardiogram (complete) [facility] Work Phone: Start: 05-08-2016 End: 08-01-2016 Follow Up Appt 3 months Follow Up Appt 3 months [facility] Work Phone: Start: 05-08-2016 End: 05-13-2016 Magnesium *Magnesium [facility] Work Phone: Start: 05-08-2016 End: 08-01-2016 MMM MMM [facility] Work Phone: Start: 05-08-2016 End: 05-16-2016 Thyroid stimulating hormone (TSH) *TSH [facility] Work Phone: Start: 05-05-2016 End: 05-05-2016 24 hour holter monitor 24 hour holter monitor [facility] Work Phone: Start: 05-05-2016 End: 05-05-2016 Ecg routine ecg w/least 12 lds w/i&r EKG (In office) [facility] Work Phone: Start: 05-05-2016 End: 05-05-2016 Follow Up Appt Other Follow Up Appt Other [facility] Work Phone: Start: 11-21-2015 Provider Instructions for Treatment [facility] Work Phone: Start: 11-07-2015 Provider Instructions for Treatment [facility] Work Phone: Start: 11-07-2015 Basic metabolic panel calcium total [facility]; [facility] Work Phone: Start: 11-05-2015 End: 11-05-2015 Follow Up Appt 6 months Follow Up Appt 6 months [facility] Work Phone: Start: 11-05-2015 End: 11-05-2015 MMM MMM [facility] Work Phone: Start: 10-24-2015 Procedure Education [facility]; [facility] Work Phone: Start: 10-24-2015 Provider Instructions for Treatment [facility] Work Phone: Start: 10-15-2015 Procedure Education [facility]; [facility] Work Phone: Start: 10-15-2015 Provider Instructions for Treatment [facility]; [facility] Work Phone: Start: 10-08-2015 Assay of troponin quantitative [facility] Work Phone: Start: 10-08-2015 Assay of thyroid stimulating hormone tsh [facility] Work Phone: Start: 10-08-2015 Blood count complete auto&auto difrntl wbc [facility]; [facility] Work Phone: Start: 10-08-2015 Urnls dip stick/tablet reagent auto microscopy [facility]; [facility] Work Phone: Start: 10-08-2015 Comprehensive metabolic panel [facility] Work Phone: Start: 10-08-2015 Procedure Education [facility]; [facility] Work Phone: Start: 10-08-2015 Provider Instructions for Treatment [facility]; [facility] Work Phone: Start: 10-03-2015 Patient Education [facility]; [facility] Work Phone: Start: 10-03-2015 Procedure Education [facility]; [facility] Work Phone: Start: 10-03-2015 Comprehensive metabolic panel [facility] Work Phone: Start: 08-08-2015 Procedure Education [facility]; [facility] Work Phone: Start: 06-13-2015 Procedure Education [facility]; [facility] Work Phone: Start: 06-13-2015 Urnls dip stick/tablet reagent auto microscopy [facility]; [facility] Work Phone: Start: 06-13-2015 Blood count complete auto&auto difrntl wbc [facility]; [facility] Work Phone: Start: 06-13-2015 Comprehensive metabolic panel [facility] Work Phone: Start: 06-13-2015 Lipid panel [facility]; [facility] Work Phone: Start: 03-20-2015 End: 03-20-2015 Follow Up Appt 6 months Follow Up Appt 6 months [facility] Work Phone: Start: 03-20-2015 End: 03-20-2015 Follow Up Appt Other Follow Up Appt Other [facility] Work Phone: Start: 03-20-2015 End: 03-20-2015 PFM PFM [facility] Work Phone: Start: 01-24-2015 Procedure Education [facility]; [facility] Work Phone: Start: 01-18-2015 Urinalysis qual/semiquant except immunoassays [facility]; [facility] Work Phone: Start: 10-31-2014 Provider Instructions for Treatment [facility] Work Phone: Start: 10-05-2014 Provider Instructions for Treatment [facility]; [facility] Work Phone: Start: 10-05-2014 Cul bact xcpt urine blood/stool aerobic isol [facility]; [facility] Work Phone: Start: 09-27-2014 Procedure Education [facility]; [facility] Work Phone: Start: 09-20-2014 End: 09-20-2014 Follow Up Appt 6 months Follow Up Appt 6 months [facility] Work Phone: Start: 09-20-2014 End: 09-20-2014 MMM MMM [facility] Work Phone: Start: 05-03-2014 End: 05-03-2014 Ecg routine ecg w/least 12 lds w/i&r EKG (In office) [facility] Work Phone: Start: 05-03-2014 End: 05-03-2014 Follow Up Appt Other Follow Up Appt Other [facility] Work Phone: Start: 05-03-2014 End: 05-03-2014 PFM PFM [facility] Work Phone: Start: 03-06-2014 Patient Education [facility]; [facility] Work Phone: Start: 02-24-2014 Procedure Education [facility]; [facility] Work Phone: Start: 10-21-2013 Patient Education [facility]; [facility] Work Phone: Start: 09-19-2013 End: 09-19-2013 Follow Up Appt 6 months Follow Up Appt 6 months [facility] Work Phone: Start: 09-19-2013 End: 09-19-2013 MMM MMM [facility] Work Phone: Start: 06-30-2013 Provider Instructions for Treatment [facility]; [facility] Work Phone: Start: 01-25-2013 End: 01-25-2013 Ecg routine ecg w/least 12 lds w/i&r EKG (In office) [facility] Work Phone: Start: 01-25-2013 End: 01-25-2013 Follow Up Appt 6 months Follow Up Appt 6 months [facility] Work Phone: Start: 01-25-2013 End: 01-25-2013 Follow Up Appt Other Follow Up Appt Other [facility] Work Phone: Start: 01-25-2013 End: 01-25-2013 PFM PFM [facility] Work Phone: Start: 10-22-2012 Patient Education [facility]; [facility] Work Phone: Start: 07-26-2012 End: 07-26-2012 Follow Up Appt 6 months Follow Up Appt 6 months [facility] Work Phone: Start: 07-26-2012 End: 07-26-2012 MMM MMM [facility] Work Phone: Start: 06-19-2012 25 hydroxy includes fractions if performed [facility]; [facility] Work Phone: Start: 06-19-2012 Lipid panel [facility]; [facility] Work Phone: Start: 06-19-2012 Blood count manual cell count each [facility]; [facility] Work Phone: Start: 06-19-2012 Comprehensive metabolic panel [facility] Work Phone: Start: 03-19-2012 Patient Education [facility]; [facility] Work Phone: Start: 03-04-2012 Assay of thyroid stimulating hormone tsh [facility]; [facility] Work Phone: Start: 01-16-2012 End: 01-17-2013 Ecg routine ecg w/least 12 lds w/i&r EKG (In office) [facility] Work Phone: Start: 01-16-2012 End: 01-16-2012 Echocardiography Echocardiogram (complete) [facility] Work Phone: Start: 01-16-2012 End: 01-17-2013 Follow Up Appt 6 months Follow Up Appt 6 months [facility] Work Phone: Start: 12-09-2011 Patient Education [facility]; [facility] Work Phone: Start: 10-07-2011 Assay of triiodothyronine t3 free [facility] Work Phone: Start: 10-07-2011 Assay of free thyroxine [facility]; [facility] Work Phone: Start: 10-07-2011 Assay of thyroid stimulating hormone tsh [facility]; [facility] Work Phone: Start: 10-07-2011 Antibody screen rbc each serum technique [facility]; [facility] Work Phone: Start: 10-07-2011 Blood typing serologic rh phenotyping complete [facility]; [facility] Work Phone: Start: 09-19-2011 Cyclic citrullinated peptide antibody [facility]; [facility] Work Phone: Start: 09-17-2011 Potassium serum plasma/whole blood [facility]; [facility] Work Phone: Start: 05-20-2011 Assay of prostate specific antigen total [facility]; [facility] Work Phone: Start: 05-20-2011 Comprehensive metabolic panel [facility] Work Phone: Start: 05-20-2011 Lipid panel [facility]; [facility] Work Phone: Start: 05-20-2011 25 hydroxy includes fractions if performed [facility]; [facility] Work Phone: Start: 10-11-2010 Provider Instructions for Treatment [facility]; [facility] Work Phone: Start: 08-28-2010 Patient Education [facility]; [facility] Work Phone: Start: 11-28-2009 Comprehensive metabolic panel [facility] Work Phone: Start: 11-28-2009 Lipid panel [facility]; [facility] Work Phone: Start: 11-28-2009 Potassium serum plasma/whole blood [facility]; [facility] Work Phone: Start: 05-22-2009 Provider Instructions for Treatment [facility]; [facility] Work Phone: Start: 05-22-2009 Hepatic function panel [facility]; [facility] Work Phone: Start: 05-22-2009 Lipid panel [facility]; [facility] Work Phone: Start: 02-20-2009 Provider Instructions for Treatment [facility]; [facility] Work Phone: Start: 11-14-2008 Hepatic function panel [facility]; [facility] Work Phone: Start: 11-14-2008 Lipid panel [facility]; [facility] Work Phone: Start: 11-14-2008 Assay of prostate specific antigen total [facility]; [facility] Work Phone: Start: 11-14-2008 Provider Instructions for Treatment [facility]; [facility] Work Phone: Start: 07-05-2008 Provider Instructions for Treatment [facility]; [facility] Work Phone: Start: 05-30-2008 Provider Instructions for Treatment [facility]; [facility] Work Phone: Start: 04-25-2008 Provider Instructions for Treatment [facility]; [facility] Work Phone: Start: 04-25-2008 Glucose tolerance test gtt 3 specimens [facility]; [facility] Work Phone: Start: 11-09-2007 Comprehensive metabolic panel [facility] Work Phone: Start: 08-09-2007 Hepatic function panel [facility]; [facility] Work Phone: Start: 08-09-2007 Lipid panel [facility]; [facility] Work Phone: Start: 05-20-2007 Cul bact xcpt urine blood/stool aerobic isol [facility]; [facility] Work Phone: Start: 12-16-2006 Assay of prostate specific antigen total [facility]; [facility] Work Phone: Start: 12-16-2006 Lipid panel [facility]; [facility] Work Phone: Start: 12-16-2006 Blood count manual cell count each [facility]; [facility] Work Phone: Start: 09-21-2006 Provider Instructions for Treatment [facility]; [facility] Work Phone: Start: 09-21-2006 Hepatic function panel [facility]; [facility] Work Phone: Start: 09-21-2006 Lipid panel [facility]; [facility] Work Phone: Start: 06-16-2006 Provider Instructions for Treatment [facility]; [facility] Work Phone: Start: 06-16-2006 Assay of prostate specific antigen total [facility]; [facility] Work Phone: Start: 06-16-2006 Lipid panel [facility]; [facility] Work Phone: Start: 06-16-2006 Urnls dip stick/tablet rgnt auto w/o microscopy [facility]; [facility] Work Phone: Start: 06-16-2006 Assay of thyroid stimulating hormone tsh [facility]; [facility] Work Phone: Start: 06-16-2006 Comprehensive metabolic panel [facility] Work Phone: Start: 06-16-2006 Blood count manual cell count each [facility]; [facility] Work Phone: Anion gap measurement [facility] Antibody to lupus [place] protein measurement [facility] Antibody to SS-A measurement [facility] Bacteria identified in Urine by Culture Urine Culture [facility] Blood ammonia measurement [facility] Brain natriuretic pe ptide measurement [facility] BUN/Creatinine ratio [facility] Calcium [Mass/volume ] in Serum or Plasma [facility] Carbon dioxide, tota l [Moles/volume] in Serum or Plasma [facility] Centromere protein B Ab [Units/volume] in Serum [facility] Chloride [Moles/volu me] in Serum or Plasma [facility] Cholesterol [Mass/vo lume] in Serum or Plasma [facility] Cholesterol in HDL [ Mass/volume] in Serum or Plasma [facility] Cholesterol in LDL [ Mass/volume] in Serum or Plasma [facility] Chromatin Ab [Units/ volume] in Serum or Plasma [facility] Comprehensive metabo lic 2000 panel - Serum or Plasma [facility] Creatinine [Moles/vo lume] in Serum or Plasma [facility] DNA double strand Ab [Units/volume] in Serum [facility] Glucose [Mass/volume ] in Serum or Plasma [facility] INR in Blood by Coagulation assay [facility] Rosa-1 extractable nuc lear Ab [Units/volume] in Serum [facility] Lipid 1995 panel - S justine or Plasma [facility] Lipid 1995 panel - S justine or Plasma [facility] Lipid 1995 panel - S [facility] or Plasma [facility] Measurement of renal function [facility] Nuclear Ab [Presence] in Serum [facility] Patient Education [facility] Work Phone: Patient referral [facility] Work Phone: Potassium [Moles/vol ume] in Serum or Plasma [facility] Radionuclide imaging of perfusion of myocardium under exercise stress [facility] [id number] extractable n uclear Ab [Units/volume] in Serum by Immunoassay [facility] Cam extractable nu clear Ab [Presence] in Serum [facility] Sodium [Moles/volume ] in Serum or Plasma [facility] Triglycerides measurement [facility] Urea nitrogen [Mass/ volume] in Serum or Plasma [facility] US Heart [facility] VLDL cholesterol measurement [facility] Work Phone: [facility] Work Phone[facility] Work Phone: [facility] Work Phone: [facility] Work Phone: [facility] Work Phone: [facility] Work Phone: [facility] Work Phone: [facility] Work Phone: [facility] Work Phone: [facility] Work Phone: [facility] Work Phone[facility] Work Phone: [facility] Work Phone[facility] Work Phone[facility] Work Phone: [facility]; [facility] Internal Medicine Work Phone: [facility] Work Phone: [facility]; [facility] Work Phone: [facility]; [facility] Work Phone: [facility]; [facility] Work Phone: [facility]; [facility] Work Phone: [facility]; [facility] Work Phone: [facility]; [facility] Work Phone: [facility] Work Phone: [facility]; [facility] Work Phone: [facility]; [facility] Work Phone: [facility]; [facility] Work Phone: [facility] [place], [place] Immunizations Immunization Date Immunization Notes Care Provider Fa cility 05-09-2023 RSV Adult Recombinan t (Arexvy) Dr. Butch Barcenas DO Work Phone: [facility] 10-09-2021 Covid (Moderna) Dr. Butch ramirez DO Work Phone: [facility] 05-22-2021 Covid (Moderna) Dr. Butch ramirez DO Work Phone: [facility] 03-06-2021 influenza, injectabl e, quadrivalent, preservative free Dr. Jose Hooks Work Phone: [facility] 03-06-2021 influenza, seasonal, injectable Dr. Javi Bates Work Phone: [facility] 03-06-2021 Seasonal, quadrivale nt, recombinant, injectable influenza vaccine, preservative free Dr. Butch Barcenas DO Work Phone: [facility] 01-29-2021 Covid (Gus & Gus) Dr. Javi Bates Work Phone: [facility] 12-26-2020 tetanus toxoid, redu parth diphtheria toxoid, and acellular pertussis vaccine, adsorbed Dr. Butch Barcenas DO Work Phone: [facility] 12-19-[address] Butch Barcenas DO Work Phone: [facility] 12-17-2020 pneumococcal polysaccharide vaccine, [address] Butch Barcenas DO Work Phone: [facility] 07-30-2020 Covid (Moderna) Dr. Javi Bates Work Phone: [facility] 02-20-2009 influenza, seasonal, injectable Sherron Fast DO Work Phone: [facility]; [facility] Work Phone: 02-20-2009 pneumococcal polysaccharide vaccine, 23 valent Sherron Fast DO Work Phone: [facility]; [facility] Work Phone: Payers Date Payer Category Payer Medicare [id number] 2024 Private Health Insurance [id number] [id number] 2023 Self-pay [id number] 2023 Private Health Insurance [id number] 2007 Unknown [id number] 1940 Unknown [id number] 2.16.8 40.1.101677.3.579.2.627 1942 Unknown [id number] 2.16.8 40.1.621840.3.579.2.627 1942 Unknown [id number] 2.16.8 40.1.992052.3.579.2.627 1942 Unknown [id number] 2.16.8 40.1.550667.3.579.2.627 Unknown Unknown [id number] 2.16.8 40.1.506286.3.579.2.462 Unknown [id number] 2.16.8 40.1.678742.3.579.2.462 Unknown [id number] 2.16.8 40.1.897470.3.579.2.462 Unknown [id number] 2.16.8 40.1.143223.3.579.2.462 Unknown [id number] 2.16.8 40.1.599071.3.579.2.462 Unknown [id number] 2.16.8 40.1.392471.3.579.2.462 Unknown [id number] 2.16.8 40.1.550308.3.579.2.462 Unknown [id number] 2.16.8 40.1.093259.3.579.2.462 Unknown [id number] 2.16.8 40.1.617648.3.579.2.462 Unknown [id number] 2.16.8 40.1.388607.3.579.2.462 Unknown [id number] 2.16.8 40.1.092913.3.579.2.462 Unknown [id number] 2.16.8 40.1.402610.3.579.2.462 Unknown [id number] 2.16.8 40.1.590124.3.579.2.462 Unknown [id number] 2.16.8 40.1.210608.3.579.2.462 Unknown [id number] 2.16.8 40.1.909451.3.579.2.462 Unknown [id number] 2.16.8 40.1.769381.3.579.2.462 Unknown [id number] 2.16.8 40.1.996694.3.579.2.462 Unknown [id number] 2.16.8 40.1.891999.3.579.2.462 Unknown [id number] 2.16.8 40.1.164005.3.579.2.462 Unknown [id number] 2.16.8 40.1.928651.3.579.2.462 Unknown [id number] 2.16.8 40.1.933555.3.579.2.462 Unknown [id number] 2.16.8 40.1.107252.3.579.2.462 Unknown [id number] 2.16.8 40.1.297910.3.579.2.462 Unknown [id number] 2.16.8 40.1.006900.3.579.2.462 Unknown [id number] 2.16.8 40.1.355279.3.579.2.462 Unknown [id number] 2.16.8 40.1.199784.3.579.2.462 Unknown [id number] 2.16.8 40.1.701993.3.579.2.462 Unknown [id number] 2.16.8 40.1.547765.3.579.2.462 Unknown [id number] 2.16.8 40.1.249602.3.579.2.462 Unknown [id number] 2.16.8 40.1.936749.3.579.2.462 Unknown [id number] 2.16.8 40.1.232660.3.579.2.462 Unknown [id number] 2.16.8 40.1.163139.3.579.2.462 Unknown [id number] 2.16.8 40.1.629706.3.579.2.462 Unknown [id number] 2.16.8 40.1.201486.3.579.2.462 Unknown [id number] 2.16.8 40.1.448607.3.579.2.462 Unknown [id number] 2.16.8 40.1.073045.3.579.2.462 Unknown [id number] 2.16.8 40.1.356361.3.579.2.462 Unknown [id number] 2.16.8 40.1.281953.3.579.2.462 Unknown [id number] 2.16.8 40.1.613266.3.579.2.462 Unknown [id number] 2.16.8 40.1.835967.3.579.2.462 Unknown [id number] 2.16.8 40.1.656181.3.579.2.462 Unknown [id number] 2.16.8 40.1.034749.3.579.2.462 Unknown [id number] 2.16.8 40.1.139229.3.579.2.462 Unknown [id number] 2.16.8 40.1.180088.3.579.2.462 Unknown [id number] 2.16.8 40.1.507912.3.579.2.462 Unknown [id number] 2.16.8 40.1.103143.3.579.2.462 Unknown [id number] 2.16.8 40.1.342662.3.579.2.462 Unknown [id number] 2.16.8 40.1.629378.3.579.2.462 Unknown [id number] 2.16.8 40.1.587488.3.579.2.462 Unknown [id number] 2.16.8 40.1.558392.3.579.2.462 Unknown [id number] 2.16.8 40.1.245536.3.579.2.462 Unknown [id number] 2.16.8 40.1.091299.3.579.2.462 Unknown [id number] 2.16.8 40.1.905926.3.579.2.462 Unknown [id number] 2.16.8 40.1.585010.3.579.2.462 Unknown [id number] 2.16.8 40.1.991939.3.579.2.462 Unknown [id number] 2.16.8 40.1.518923.3.579.2.462 Unknown [id number] 2.16.8 40.1.734114.3.579.2.462 Unknown [id number] 2.16.8 40.1.967202.3.579.2.462 Unknown [id number] 2.16.8 40.1.717356.3.579.2.462 Social History Date Type Detail Facility [facility] Work Phone: Never smoker. [facility]; [facility] Work Phone: Start: 07-09-2021 End: 05-20-2023 Tobacco smoking status NHIS Unknown if ever smoked [facility] Start: 06-04-2017 None [facility] Start: 1940 Sex Assigned At Male W [facility] Start: 05-23-2023 Non-smoker [facility] Start: 07-07-2024 End: 08-16-2024 Tobacco smoking status Never smoked tobacco (finding) [facility] Sexual Orientation Pardeep Yvan burton [facility] Start: 01-03-2020 End: 10-05-2024 Sex Male (finding) [facility] Medical Equipment Procedure Code Equipment Code Equipment Origin al Text Equipment Identifier Dates Colonoscopy Ligation clip, metallic ()[id number] FDA Start: 04-27-2024 Drug-eluting coronary artery stent, dgl-qjaerzsmzezve-ku lymer-coated ()[id number] FDA Start: 01-05-2023 Drug-eluting coronary artery stent, kjg-ubymvldywpjsv-ci lymer-coated ()[id number] FDA Start: 01-05-2023 Vena cava filter , temporary/permanent ()[id number] [id number] FDA Start: 06-03-2023 Goals Date Patient Goal Desired Activity /State Functional Status Date Assessment Result Facility 07-07-2024 Functional Status Sensory Defici ts Hearing deficit, left ear, Hearing deficit, right ear [facility] 04-28-2024 Functional status Ambulates;Bedside Commo de [facility] Work Phone: 10-03-2023 Functional status Ambulates;Up ad morenita [facility] Work Phone: 05-30-2023 Functional status Ambulates [facility] Work Phone: 05-23-2023 Functional status Activity Abili ty With Assist of 1 [facility] Work Phone: 05-22-2023 Functional status Ambulates [facility] Work Phone: 01-06-2023 Functional status Ambulates [facility] Work Phone: Mental Status Date Assessment Result Facility 08-16-2024 Cognitive function Level Of Cons ciousness Awake;Alert;Appropriate;Follow s Commands [facility] Work Phone: 04-28-2024 Cognitive function Voice/Name [facility] Work Phone: 10-03-2023 Cognitive function Voice/Name [facility] Work Phone: 05-30-2023 Cognitive function Voice/Name [facility] Work Phone: 05-23-2023 Cognitive function Voice/Name [facility] Work Phone: 05-20-2023 Cognitive function Voice/Name [facility] Work Phone: 01-06-2023 Cognitive function Voice/Name [facility] Work Phone: 11-17-2022 Cognitive function Voice/Name [facility] Work Phone: 05-03-2021 Cognitive function Voice/Name [facility] Work Phone: Clinical Notes 10-02-2020 to 11-14-2024 Note Date & Type Note Facility 11-14-2024 Radiology Diagnostic study note [facility] Imaging Services [address] [place], [place] [address] Knee 4 or More Views MR#: [id number] Acct: [id number] Name: KULWANT ANDRADE Rep #: [id number] : 1940 M 84 From: Pet er Peer DO PCP: RANI Hdz Status: REG ER Study:Knee 4 or More Views Date of Exam: 11/14/24 Exam# [id number] Ordering Dr: Abbie Good DO PROCEDURE: KNEE 4 OR MORE VIEWS 11/14/2024 REASON FOR EXAM: PAIN TECHNIQUE: KNEE 4 OR MORE VIEWS COMPARISON: June 03, 2024 knee radiograph FINDINGS: Bones: Normal bone mineralization. Since the prior study there has been placement of total knee arthroplasty hardware. Joints: The total knee arthroplasty hardware is intact and well-positioned. No obvious complication. Effusion: No appreciable effusion. Soft tissues: Unremarkable Other: RAD/Knee 4 or More Views IMPRESSION: Status post right knee total arthroplasty without obvious hardware complication. Reading [facility] CC: RANI Rodriguez; Dr. 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 [facility] 11-01-2024 Evaluation note Diagnosis Onset Date Resolution Chronic kidney disease chronic November 01, 2024 9:30am Coronary artery disease chronic November 01, 2024 9:30am History of coronary artery bypass graft x 3 January, chronic November 01, 2024 9:30am History of DVT (deep vein thrombosis) chronic November 01, 2024 9:30am Essential hypertension inactive November 01, 2024 9:30am Hyperlipidemia inactive November 01, 2024 9:30am [facility] Work Phone: 1(105) 463-306606-03-2025 [facility] [address] [place], [place] [address] OFFICE VISIT Date of Service: 11/01/24 MR#: [id number] Acct: [id number] Name: KULWANT ANDRADE Rep #: [id number] : 1940 Provider: Dr. Jamel Whitmore MD Age/Sex: 84/M [place] [facility] [place] Status: Signed HPI HPI History of Present Illness Details: This gentleman with history of coronary artery disease status post CABG, noted to have atretic LIMAto the LAD on angiography in 2022, 100% SVG to the obtuse marginal and patent SVG to the RCA, status post REKHA to the proximal and mid LAD,is here for follow-up visit. Denies any chest pains or shortness of breath. No palpitations. No orthopnea or PND. No ankle edema. Patient does complain of being tired and fatigued. 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Medication ?Instructions ?Recorded ?Confirmed ?Type blood pressure monitor #1 ea 01/15/23 11/01/24 Rx levothyroxine 88 mcg tablet 88 mcg PO DAILY THYROID 11/01/24 History diphenhydramine 25 2 tab PO QHS Sleep 09/30/23 11/01/24 History mg-acetaminophen 500 mg tablet (Tylenol PM Extra Strength) metoprolol tartrate 25 mg tablet 25 mg PO BID BLOOD HI ESSURE #60 03/21/24 11/01/24 Rx tabs cholecalciferol (vitamin D3) 50 50 mcg PO DAILY supple ment 04/25/24 11/01/24 History mcg (2,000 unit) capsule doxycycline hyclate 100 mg tablet 100 mg PO BID infect ion - groin ? 04/25/24 11/01/24 History ascorbate calcium (vitamin C) 500 500 mg PO QDAY #90 t abs 05/18/24 11/01/24 Rx mg tablet ferrous sulfate 325 mg (65 mg 325 mg PO QDAY #90 tabs 05/18/24 11/01/24 Rx iron) tablet pantoprazole 40 mg tablet,delayed 40 mg PO QDAY stomac h 1 month #30 05/18/24 11/01/24 Rx release tabs hydrocodone-acetaminophen 5-325mg 1 tab PO Q6H PRN PRN Pain 3 days 08/16/24 11/01/24 Rx 5mg-325mg #10 TABLETS apixaban 5 mg tablet (Eliquis) 5 mg PO BID 11/01/24 History escitalopram oxalate 20 mg tablet 20 mg PO QHS 5 11/01/24 History naproxen 500 mg tablet 500 mg PO BID 11/01/2411/01 History tramadol 50 mg tablet 25 mg PO Q6 PRN pain 5 11/01/24 History Ejection fraction %: 65 Have you fallen in the past year?: No PFSH Medical History (Updated 11/01/24 @ 10:[address] 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 Wears glasses Thyroid disease History of steroid therapy Prostate disease Bladder disease High cholesterol History of echocardiogram History of stress test Cardiology follow-up encounter H/O Legionnaire's disease (~2018) [place] filter in place Kidney stones GI bleed Pulmonary embolism Coronary artery disease TIA (transient ischemic attack) Postoperative atrial fibrillation Atherosclerotic heart disease of hughes coronary artery without angina pectoris CAD (coronary artery disease) Pulmonary nodule D-dimer, elevated Edema Dyspnea on exertion Essential hypertension BPH (benign prostatic hyperplasia) Nasal sinus polyp DDD (degenerative disc disease) Fibromyalgia Syncope White coat syndrome with hypertension 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 Hemorrhoid Premature ventricular contraction Bigeminy Cardiomyopathy in other diseases classified elsewhere Hyperlipidemia Premature atrial contractions Hypothyroid Acid reflux HTN (hypertension) Surgical History S/P knee surgery History of cardiac catheterization (~02/22/21) Hx of CABG (~2018) History of coronary artery stent placement History of placement of stent in LAD coronary artery (01/05/23) History of coronary artery bypass graft x 3 (~02/26/21) History of radiofrequency ablation procedure for cardiac arrhythmia (~10/2002) History of cholecystectomy Hx of appendectomy History of kidney surgery (~2001) History of back surgery (~1999) H/O hemorrhoidectomy Family History Father CVA (cerebral vascular accident) Hypertension Heart disease Mother CAD (coronary artery disease) Brother Hypertension Brother CAD (coronary artery disease) Hypertension Sister Hypertension Sister Patent foramen ovale Sister Hypertension Lung cancer Other Dyspnea on exertion Social History household members: none Smoking Status: Never smoker alcohol intake: never substance use type: does not use ROS Const Const: Positive for fatigue and weakness; Negative for headache(s) or weight gain ENT ENT: Positive for balance problems (with orthopedic limitations to L Knee); Negative for headache(s), dizziness or Nosebleed/epistaxis Cardio Chest Pain: No Palpitations: No Edema: None Muscle aches with walking: None Resp Respiratory: Negative for SOB with activity, SOB at rest or SOB orthopneaundefinedSOB lying down GI GI: Negative nausea, vomiting or heartburn Musc Musc: Positive for muscle weakness, joint pain (L Knee) and balance problems (with orthopedic limitations to L Knee); Negative for muscle aches/ myalgia Neuro Neuro: Positive for weakness; Negative for dizziness, lightheadedness, near syncope, syncope or headache(s) Endo Endo: Positive for fatigue Psych Psych: Positive for depression Cardiology Exam Const Appearance: comfortable and no acute distress Nutritional Appearance: well nourished Neck Neck: no JVD Carotids: Negative bruit Chest Auscultation: Bilateral: Clear to Auscultation Cardio Rate: regular rate Rhythm: regular rhythm Heart sounds: S1 normal and S2 normal Neuro General: patient alert, patient awake and patient oriented x3 Extremities Lower Extremity Edema: None: Bilateral Supplemental Info Supplemental Information Echocardiogram 03/07/2024: Interpretation Summary The left ventricular ejection fraction is 65 %. Diastolic function is indeterminate. The left atrium is severely enlarged. The right atrium is mildly enlarged. Mild-Moderate (1-2+) mitral valve insufficiency. Mild tricuspid valve insufficiency. Right ventricular systolic pressure estimated to be 42 mmHg. ECHOCARDIOGRAM 11/11/2022: Interpretation Summary The left ventricular ejection fraction is 60 %. The left atrium is mildly enlarged. Mild (1+) mitral valve insufficiency. Mild tricuspid valve insufficiency. Mild (1+) pulmonic valve insufficiency. Mildly dilated aortic root. STRESS TEST 11/11/22: Perfusion SPECT analysis: Review of the stress images demonstrate normal uptake of tracer noted in all areas of the myocardium. The resting images similarly demonstrate normal uptakeof tracer noted in all areas of the myocardium. No areas of reversibility are noted to suggest ischemia no previous infarct was noted. Gated SPECT analysis: The gated ejection fraction is 74%. Conclusion: Normal exercise myocardial perfusion stress test at a moderate workload Preserved ejection fraction. Stress Test 11-08-2020: Impression: 1. Pharmacologic (Regadenoson) evaluation 2. Peak pharmacologic ECG with no obvious ECG changes. 3. There was an occasional PVC during recovery. 4. Nuclear images pending Interpretation: Rest and stress SPECT Cardiolite nuclear imaging status post realignment, normalization, and attenuation correction demonstrate the appearance of body motion during image acquisition. At rest there appears to be relative uniform tracer uptake and myocardial perfusion appearing within normal limits.Status post stress there is notation of diminished myocardial perfusion/tracer uptake in the distalinferolateral lateral apical segments. There are similar type findings on the stress polar map images.. There is end systolic thickening and brightening. The gated Cardiolite study demonstrates myocardial thickening and inward wall motion. The reported LVEF is 83%. Impression: 1. Rest and stress SPECT cardiac nuclear imaging demonstrate an element of bodymotion during image acquisition as well as post stress an element of diminished myocardial perfusion/tracer uptake in portions of the distal inferolateral/lateral apical segments concerning for stress-induced myocardial i schemia, however, based upon the body motion during image acquisition an element of shifting soft tissue attenuation/artifact cannot necessarily be excluded. 2. The gated Cardiolite study reports an LVEF of 83%. Echocardiogram 11/08/2020: Left ventricular systolic function is normal. The estimated ejection fraction is 65 %. The left atrium is mildly enlarged. There is mild mitral annular calcification. Trivial mitral valve insufficiency. Trivial tricuspid valve insufficiency. Trivial pulmonic valve insufficiency. Right ventricular systolic pressure estimated to be 34 mmHg. No evidence for diastolic dysfunction. 48-Hour Holter Monitor Summary 03/16/2024: Interpretation: There were a total of [id number] beats recorded over the 48 hour period. Normal Sinus Rhythm with periods of PVCs and rare PACs. Average heart rate was 59 BPM Minimum heart rate was 37 BPM at 0327 AM D1, sinus bradycardia Maximum heart rate was 88 BPM at 1638 PM D1 There were a total of 9582 premature ventricular ectopic isolated beats, comprising of 6.0% of the total QRS complexes. 2 ventricular runs noted. The longest run consisted of 6 beats with a maximum heart rate of 95 BPM D2. The fastest run consisted of 4 beats with a maximum heart rate of 103 BPM D2. 26 triplets noted, 2 interpolated beats, 492 bigeminy and 78 trigeminal beats. 669 couplets noted. There were a total of 771 premature supraventricular ectopic isolated beats, comprising of 0.5% of the total QRS complexes. 1 dropped beat consisting of 3.4 seconds of the longest R-R interval at 0707 AM D1. No atrial fibrillation noted. Provider Comments: 3.4 second pause Cardiac Catheterization 02/22/2021 CONCLUSIONS Elevated Left Ventricular End Diastolic Pressure Normal LV size, wall motion,and systolic function LVEF: by LV gram 55 % [place] Multivessel CAD Collateral Flow: left to right RECOMMENDATIONS Medical therapy Surgery consult for coronary revascularization CORONARY ANGIOGRAPHY DOMINANCE: Right Dominant LEFT HEART ASSESSMENT Left Ventricular Ejection Fraction: by LV Gram 55 % Normal LV wall motion Elevated Left Ventricular End Diastolic Pressure LVEDP: 26 mmHg LEFT MAIN: Angiographically normal LEFT ANTERIOR DESCENDING ARTERY: PROX LAD: somewhat long: diffuse: 85 % Stenosis, 25 % Stenosis MID LAD: s/p SP: eccentric: 25 % Stenosis, 25 % Stenosis CIRCUMFLEX ARTERY: OM 1: Proximal - somewhat long: diffuse: prebirfurcation: 90 % Stenosis RIGHT CORONARY ARTERY: PROX RCA: long: diffuse: 90 % Stenosis RT PDA: Distal - small vessel: 75 % Stenosis COLLATERAL FLOW: Collateral flow from Left to Right AORTIC ROOT: Angiographically normal COMPLICATIONS CABG 02/26/2021 [facility]: SPRINGER to the LAD SVG to OM1 SVG to the PDA Assessment and Plan Assessment and Plan (1) Coronary artery disease: Status: Chronic Plan: Status post CABG. SPRINGER to LAD atretic. Status post-REKHA to the proximal and midLAD in 2022. SVG to RCA patent. SVG to obtuse marginal totally occluded. Obtuse marginal and filling retrogradely via home collaterals from the left system. Continue beta-blockers. In view of his fatigue with borderline blood pressure, DC amlodipine. Decrease metoprolol to extended release 25 mg once daily. Start enteric-coated aspirin 81 mg daily. Patient intolerant of statins. Refuses to trial. Start on Tricor. Check lipidprofile in 3 months. 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 Grewal @ [facility] 02/26/21 Plan: See #1 above. (3) Hyperlipidemia: Status: Inactive Qualifiers: Hyperlipidemia type: unspecified Qualified Code(s): E78.5 - Hyperlipidemia, unspecified Plan: Intolerant of statins and Repatha with myalgias. Try Tricor. (4) Essential hypertension: Status: Inactive Plan: Blood pressure borderline. DC amlodipine. Decrease metoprolol to 25 mg extended release once daily. (5) Chronic kidney disease: Status: Chronic Plan: Continue to monitor. (6) History of DVT (deep vein thrombosis): Status: Chronic Plan: On apixaban. Continue to manage as per PCP/vascular. Plan Details Follow Up: 6 Months Coding Level of Care Code Off vis,est,level 4 Diagnoses Coronary artery disease I25.10 History of coronary artery bypass graft x 3 Z95.1 Hyperlipidemia, unspecified hyperlipidemia type E78.5 Hyperlipidemia type: unspecified Essential hypertension I10 Chronic kidney disease N18.9 History of DVT (deep vein thrombosis) Z86.718 Coding Level of Care Code Off vis,est,level 4 Diagnoses Coronary artery disease I25.10 History of coronary artery bypass graft x 3 Z95.1 Hyperlipidemia, unspecified hyperlipidemia type E78.5 Hyperlipidemia type: unspecified Essential hypertension I10 Chronic kidney disease N18.9 History of DVT (deep vein thrombosis) Z86.718 Clinical Quality Measures Falls Risk Screening/Assistive Devices Have you fallen in the past year?: No Cardiac Ejection fraction %: 65 11/01/24 1005 MD> Date _ [facility] Signature: Date (if applicable) CC: 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-C Juan Rodriguez ~ [facility] [facility] Evaluation note* Diagnosis Onset Date Resolution Status Admit Date Fatigue acute May 18, 2024 9:43am SOB (shortness of breath) acute May 18, 2024 9:43am GI bleed resolved May 18, 2024 9:43am [facility] Work Phone: 1(116) 521-303511-28-2024 [facility]11-25-2024 Evaluation note* Diagnosis Onset Date Resolution Status Admit Date Acute kidney injury resolved 2023 11:34am GI bleed inactive April 25, 2024 11:34am Fatigue acute May 18, 2024 9:43am SOB (shortness of breath) acute May 18, 2024 9:43am GI bleed resolved May 18, 2024 9:43am [facility] Work Phone: 1(637) 715-576511-25-2024 [facility]08-09-2024 [facility]05-03-2024 Progress note Author Jay Wright [facility] October 02, 2023 1:32pm Note Date/Time October 02, 2023 11:43a m [facility] Medical Records Department [address] [place] [address] Progress Note - Hospitalist 10/02/23 1143 MR#: [id number] Acct: [id number] Name: KULWANT ANDRADE Rep #:[id number] : 1940 83 From: Jay santos DO PCP: Dr. Jose Hooks MD Status:ADM I N Location: ICU ICU- Reason for Visit Reason for Visit: Diagnoses Sepsis due to Streptococcus pneumoniae (09/30/23) Acute kidney failure, unspecified (09/30/23) Acute cystitis with hematuria (09/30/23) Other specified disorders of bladder (09/30/23) Urinary tract infection, site not specified (09/30/23) Gross hematuria (09/30/23) Severe sepsis without septic shock (09/30/23) Adverse effect of unspecified drugs, medicaments and biological substances, initial encounter (09/30/23) Subjective Subjective No acute events overnight. Patient seen at bedside this morning. He was sitting up comfortably in bedside chair, conversing normally, no acute distress. He appeared well this morning, had good energy and skin tone. He has been urinating well on his own and states the urine color has become much more clear since yesterday, only slightly reddish this morning. Denies any fevers or chills. Does have some pain with urination but this is improved from yesterday. No other acute concerns. Objective Data Objective Data Vital Signs: Vital Signs Temp Pulse Resp BP Pulse Ox O2 Del Method O2 Flow Rate 98.3 F 85 16 130/86 H 91 Room Air 95 10/02/23 08:00 10/02/23 09:00 10/02/23 09:00 10/02/23 09:00 10/02/23 09:00 10/02/23 09:00 09/30/23 18:34 Oxygen Flow Rate (L/min) 95 Oxygen Delivery Method Room Air Weight: 80.9 kg Body Mass Index (BMI) 24.8 Intake & Output: Intake and Output for Last 24 Hours 09/30/23 10/01/23 10/02/23 23:59 23:59 23:59 Intake Total 50 / 50 5855.83 / 5855.83 600 / 600 Output Total 100 / 100 875 / 875 200 / 200 Balance -50 / -50 4980.83 / 4980.83 400 / 400 Lab / Micro Data 10/02/23 04:33 10/02/23 04:33 Labs: Laboratory Results - last 24 hr 10/01/23 13:02: WBC 18.5 H, RBC 3.73 L, Hgb 11.8 L, Hct 35.6 L, MCV 95.4 H, MCH 31.6, MCHC 33.1, RDW Std Deviation 46.6 H, RDW Coeff of Sukumar 13.3, Plt Count 204,MPV 10.1, Lactic Acid 2.4 H* 10/02/23 04:33: WBC 14.4 H, RBC 3.61 L, Hgb 11.3 L, Hct 34.3 L, MCV 95.0 H, MCH 31.3, MCHC 32.9, RDW Std Deviation 45.8 H, RDW Coeff of Sukumar 13.2, Plt Count 197,MPV 10.1, Sodium 144, Potassium 3.7, Chloride 115 H, Carbon Dioxide 25.0, Anion Gap 4 L, BUN 26 H, Creatinine 1.32 H, Estim Creat Clear Calc 46.75, Est GFR (MDRD) Af Amer 67, Est GFR (MDRD) Non-Af 55 L, BUN/Creatinine Ratio 19.7, Glucose 95, Calcium 8.0 L, Total Bilirubin 0.70, Direct Bilirubin 0.21, AST 74 H, ALT 110 H, Alkaline Phosphatase 153 H, Total Protein 5.1 L, Albumin 2.1 L, Globulin 3.0 Micro: Microbiology 09/30/23 10:05 Urine, Clean Catch Urine Culture - Final Escherichia coli Radiography Diagnostic Testing: Radiology Impression Abdomen Ultrasound 10/01/23 08:33 IMPRESSION: Normal right upper quadrant ultrasound examination after cholecystectomy. Electronically Signed: Jose Cox MD at 23:09 EDT , Physical Exam Const alert, oriented x3, no apparent distress and average body habitus Constitutional Narrative: Pleasant elderly male, sitting up comfortably in bedside chair, conversing normally, no acute distress. General Appearance: cooperative and comfortable HEENT normocephalic, head/scalp atraumatic, hearing grossly normal bilaterally and nasal mucous membranes and turbinates normal Eyes PERRL, EOMs intact bilaterally and conjunctivae normal Neck full ROM Chest inspection of chest normal Resp normal respiratory effort, normal air movement, no use of accessory muscles and clear to auscultation bilaterally Cardio regular rate, regular rhythm, no murmurs and peripheral pulses 2+ throughout GI normal to inspection, nondistended, normoactive bowel sounds, soft to palpation,non-tender and non-distended Negative for no CVA tenderness Bladder / Kidney Exam: No catheter in place and bladder normal to palpation Back/Spine normal ROM Extremity normal to inspection, full ROM and no pedal edema Skin no rashes or lesions noted Neuro moves all extremities and no focal motor deficits Speech: speech normal Psych mental status grossly normal Assessment & Plan Assessment/Plan (1) Sepsis: QUALIFIERS: Sepsis type: Pneumococcus Sepsis acute organ dysfunction status: with acute organ dysfunction Severe sepsis acute organ dysfunction type: acute renal failure Acute renal failure type: unspecified Severe sepsis shock status: without septic shock Qualified Code(s): A40.3 - Sepsis due to Streptococcus pneumoniae; R65.20 - Severe sepsis without septic shock; N17.9 - Acute kidney failure, unspecified (2) UTI (urinary tract infection): (3) Bladder mass: (4) BART (acute kidney injury): (5) Gross hematuria: PLAN: Plan Patient is an 83-year-old male who presented to [facility] ED on09/30/2023 with gross hematuria. 1. Sepsis secondary to E. coli UTI, improving Initially admitted to MedSurg, not septic on admission. However, that sepsis criteria on hospital day 2 with worsening leukocytosis, new BART, hypotension, elevated lactate in setting of UTI. Given high concern for gram-negative sepsis, transferred to ICU on 09/30. BP responsive to 30 cc/kg IV fluid bolus. ? Urine culture grew > 100K pansensitive E. coli. Blood cultures remain pending. Patient doing very well, has not needed pressors. Stable for transferout of ICU on 10/01. Continue IV ceftriaxone for now. If remains stable tomorrow, will likely plan for discharge home on p.o. antibiotics to complete a 7-day course of antibiotics total. 2. Gross hematuria, mild acute blood loss anemia See subjective above for further details. CT abdomen pelvis on admit showed diffuse bladder wall thickening with a 1.5 cm x 1.4 cm polypoid lesion at the base of the bladder. Suspected that hematuria is multifactorial due to bladder lesion with UTI while on aspirin and Plavix dual therapy. Had traumatic Andrews placement in the ED suspected due to BPH, likely also factoring in. Andrews removed in ED due to patient discomfort. ? Hemoglobin 13.9 on admit, at baseline. Repeat hemoglobin 12.2 on morning of 09/30, with recheck 11.8 on afternoon of 09/30. Aspirin Plavix held on admission. Hemoglobin remained stable on 10/01. Restarted home aspirin on morning of 10/01. Will monitor closely for worsening hematuria and follow-up hemoglobin tomorrow morning. If remains stable, likely okay for discharge home tomorrow. Planning to hold Plavix until patient sees urology in the office next Thursday or Thursday for suspected cystoscopy with biopsy. 3. History of CAD s/p CABG and recent stenting ? Follows with [facility]. Most recent stenting was done in December 2022. On home aspirin and Plavix. Aspirin and Plavix both held on admit, restarted aspirin on 10/01. Will continue to hold Plavix for suspected urology procedure next week. Has outpatient follow-up with cardiology scheduled for 10/13. 4. BART on CKD stage III, resolved ? Creatinine 1.36 on admit, appeared to be at baseline creatinine around 1.1- 1.4. Worsened to creatinine 1.88 on 09/30, suspected due to sepsis as noted above. Creatinine resolved to baseline on 10/01. Continue antibiotics as noted above. Trend daily BMP and urine output. 5. Elevated transaminases ? AST 209, ALT 185, alk phos 213, T. bili 1.80 on 09/30. No previous history of elevated LFTs. CT abdomen pelvis on admit showed history of cholecystectomy, decreased liver attenuation consistent with steatosis, no other RUQ pathology. Right upper quadrant ultrasound on 09/30 with no abnormalities. Labs improved on 10/01. Seems most consistent with mild ischemic hepatitis. No need to trend further LFTs. 6. Suspected BPH with obstructive symptoms ? No reported history of BPH per patient. However given UTI on admit and heterogenously enlarged prostate on CT on admit, strongly suspect BPH. PSA mildly elevated at 5.03. Will plan to initiate patient on Flomax prior to discharge and patient will need close outpatient urology follow-up as noted above. Chronic medical conditions: ? Recent history of VTE s/p IVC filter placement: Found on CT imaging on 05/21/2023 to have a saddle PE, started on Eliquis and stable for discharge on 05/23. Unfortunately had an upper GI bleed with acute blood loss anemia requiring admission on . AC was discontinued and IVC filter was placed on 06/03. ? History of GERD with Ogden's esophagus and recent upper GI bleed: Had upper GI bleed while on Eliquis as noted above. Per Dr. Rose's note on 07/15, patient has intermittent reflux typically related to lifestyle choices, Protonixwas reduced from twice daily to daily at that time. Currently stable and asymptomatic. Continue home PPI daily. ? Hypertension: Holding home amlodipine and Lopressor. ? Hyperlipidemia: Intolerant to statins and fenofibrate. Monitor outpatient. ? Hypothyroidism: Stable. Continue home Synthroid. ? History of A-fib s/p radiofrequency ablation: Stable in normal sinus rhythm. ? History of KHANH positive with myalgias: Continue home low-dose prednisone. ? Insomnia: Continue home Benadryl. DVT prophylaxis: SCDs CODE STATUS: Full code, verified Expected disposition: Home, 1 to 2 days Total clinical time spent by myself addressing the patient's medical issues, reviewing all the data, and collaborating with patient's care team: 35 minutes. Charges/Coding Visit Charges Inpatient E&M: 80600 Subs Hosp L2 10/02/23 1332 <Electronically signed by Jay Wright DO> Cosigner Signature (if applicable): CC: ~ Signed [facility] Work Phone: 1(278) 892-545205-02-2024 Progress note Author Jay Adriana [facility] October 01, 2023 4:40pm Note Date/Time October 01, 2023 1:46pm [facility] Medical Records Department [address] [place] [address] Progress Note - Hospitalist 10/01/23 1346 MR#: [id number] Acct: [id number] Name: KULWANT ANDRADE Rep #:[id number] : 1940 83 From: Jay santos DO PCP: Dr. Jose Hooks MD Status:ADM I N Location: ICU ICU- Reason for Visit Reason for Visit: Diagnoses Acute cystitis with hematuria (09/30/23) Other specified disorders of bladder (09/30/23) Gross hematuria (09/30/23) Adverse effect of unspecified drugs, medicaments and biological substances, initial encounter (09/30/23) Subjective Subjective Patient came to the ED yesterday with gross hematuria with clots. Has history of microscopic hematuria but had never had gross hematuria. Patient is on aspirin and Plavix given history of CAD with CABG in 2020 and more recently drug-eluting stent placement x 1 in 12/2022. Patient was found on CT abdomen pelvis to have diffuse bladder wall thickening with a 1.5 cm x 1.4 cm polypoid lesion at the base of the bladder. He was also found to have heterogenous enlargement of the prostate with indentation of the bladder base. Andrews catheter was placed in the ED but placement was noted to be difficult and quite painful for the patient. UA sample showed 500 leukocyte esterase, positive nitrites concerning for UTI. Patient actually had fairly quick clearance of hematuria after Andrews placement and initially plan was for him to go home with Andrews and outpatient urology follow-up. However, patient developed fevers and chills while in the ED concerning for possible UTI related sepsis and was admitted for further management. He also was not tolerating the Andrews catheter well and it was ultimately removed in the ED. Notably, admitting provider consulted urology for further management but we do not have urology services available here until 10/04. Patient was admitted to [facility] and again had fevers and chills yesterday evening. This morning his WBC count jumped from 12K to 23K and he became hypotensive. Lactate was 2.0 at that time. Morning labs also showed worsening BART and newly elevated LFTs. Given high concern for sepsis due to gram-negativebacteremia from UTI, patient was started on 30 cc/kg IV fluids and transferred to the ICU for further management. I saw the patient at the bedside in the midmorning, daughter was also present atbedside. Patient was sitting up fairly comfortably in bed at that time and conversing normally. He denied any current fevers or chills. Denied any acute pain or discomfort. He did note that he has had minimal urine output since Andrews catheter was pulled yesterday. Per nursing staff, has had multiple bladder scans done that showed minimal urine in the bladder. The urine that he has produced does remain fairly red. His blood pressure was remaining in the 90s over 60s, was still finishing the 30 cc/kg fluid bolus at that time. Had repeat CBC drawn early this afternoon and hemoglobin remained stable (12.2 to 11.8). Discussed with patient and daughter and we will not plan to transfer the patient for urology services at this time. I suspect that the small polypoid bladder lesion may be contributing to the hematuria but also suspect that the UTI could be contributing and patient being on aspirin and Plavix also played a role. Now after a somewhat traumatic Andrews placement, would suspect this factors into the hematuria as well. Patient will need close follow-up withurology for likely cystoscopy with biopsy of the bladder mass. However, this can be done in the office with urology next week. Importantly, patient has history of severe CAD with prior CABG and stent placement about 9 months ago. Patient was scheduled to follow-up with [facility] on 10/13 and patient and daughter noted that they were hoping to potentially discontinue patient's Plavix in November. Patient would need to be off Plavix for about 5 days for cystoscopy with biopsy of this bladder mass with urology. Given that he is 9 months out from stent placement, I will plan to restart his baby aspirin tomorrow but hold his Plavix until urology follow-up early next week. Objective Data Objective Data Vital Signs: Vital Signs Temp Pulse Resp BP Pulse Ox O2 Del Method O2 Flow Rate 98.5 F 70 11 L 107/65 93 Room Air 95 10/01/23 12:00 10/01/23 13:00 10/01/23 13:00 10/01/23 13:00 10/01/23 13:00 10/01/23 13:00 09/30/23 18:34 Oxygen Flow Rate (L/min) 95 Oxygen Delivery Method Room Air Weight: 75.3 kg Body Mass Index (BMI) 23.2 Intake & Output: Intake and Output for Last 24 Hours 09/29/23 09/30/23 10/01/23 23:59 23:59 23:59 Intake Total 50 / 50 3455.83 / 3455.83 Output Total 100 / 100 200 / 200 Balance -50 / -50 3255.83 / 3255.83 Lab / Micro Data 10/01/23 13:02 10/01/23 05:55 Labs: Laboratory Results - last 24 hr 09/30/23 10:05: PSA Screen 5.03 H 10/01/23 05:55: WBC 23.4 H, RBC 3.92 L, Hgb 12.2 L, Hct 37.3 L, MCV 95.2 H, MCH 31.1, MCHC 32.7, RDW Std Deviation 46.6 H, RDW Coeff of Sukumar 13.3, Plt Count 228,MPV 10.0, Immature Gran % (Auto) 1.400 H, Neut % (Auto) 89.5 H, Lymph % (Auto) 3.0 L, [place] % (Auto) 5.8, Eos % (Auto) 0.0, Baso % (Auto) 0.3, Absolute Neuts (auto) 20.9 H, Absolute Lymphs (auto) 0.71 L, Nucleated RBC % 0, Differential Comment SCANNED, Sodium 141, Potassium 4.3, Chloride 112 H, Carbon Dioxide 24.0,Anion Gap 5, BUN 31 H, Creatinine 1.88 H, Estim Creat Clear Calc 32.82, Est GFR (MDRD) Af Amer 45 L, Est GFR (MDRD) Non-Af 37 L, BUN/Creatinine Ratio 16.5, Glucose 91, Calcium 8.0 L, Phosphorus 4.4, Magnesium 1.9, Total Bilirubin 1.80 H, AST 209 H, ALT 185 H, Alkaline Phosphatase 213 H, Total Protein 5.3 L, Albumin2.3 L, Globulin 3.0, Albumin/Globulin Ratio 0.8 L 10/01/23 08:47: Lactic Acid 2.0 10/01/23 13:02: WBC 18.5 H, RBC 3.73 L, Hgb 11.8 L, Hct 35.6 L, MCV 95.4 H, MCH 31.6, MCHC 33.1, RDW Std Deviation 46.6 H, RDW Coeff of Sukumar 13.3, Plt Count 204,MPV 10.1 Micro: Microbiology 09/30/23 10:05 Urine, Clean Catch Urine Culture - Preliminary Presumptive E. coli Physical Exam Const alert, oriented x3, no apparent distress and average body habitus Constitutional Narrative: Pleasant elderly male, sitting up comfortably in bed, conversing normally, no acute distress. General Appearance: cooperative and comfortable HEENT normocephalic, head/scalp atraumatic, hearing grossly normal bilaterally and nasal mucous membranes and turbinates normal Eyes PERRL, EOMs intact bilaterally and conjunctivae normal Neck full ROM Chest inspection of chest normal Resp normal respiratory effort, normal air movement, no use of accessory muscles and clear to auscultation bilaterally Cardio regular rate, regular rhythm, no murmurs and peripheral pulses 2+ throughout GI normal to inspection, nondistended, normoactive bowel sounds, soft to palpation,non-tender and non-distended Negative for no CVA tenderness Bladder / Kidney Exam: No catheter in place and bladder normal to palpation Back/Spine normal ROM Extremity normal to inspection, full ROM and no pedal edema Skin no rashes or lesions noted Neuro moves all extremities and no focal motor deficits Speech: speech normal Psych mental status grossly normal Assessment & Plan Assessment/Plan (1) Sepsis: QUALIFIERS: Sepsis type: Pneumococcus Sepsis acute organ dysfunction status: with acute organ dysfunction Severe sepsis acute organ dysfunction type: acute renal failure Acute renal failure type: unspecified Severe sepsis shock status: without septic shock Qualified Code(s): A40.3 - Sepsis dueto Streptococcus pneumoniae; R65.20 - Severe sepsis without septic shock; N17.9 - Acute kidney failure, unspecified (2) UTI (urinary tract infection): (3) Bladder mass: (4) BART (acute kidney injury): (5) Gross hematuria: PLAN: Plan Patient is an 83-year-old male who presented to [facility] ED on09/30/2023 with gross hematuria. 1. Sepsis secondary to E. coli UTI Initially admitted to [facility], not septic on admission. However, that sepsis criteria on hospital day 2 with worsening leukocytosis, new BART, hypotension, elevated lactate in setting of UTI. Given high concern for gram-negative sepsis, transferred to ICU on 09/30. BP responsive to 30 cc/kg IV fluid bolus. ? Urine culture preliminarily positive for > 100K E. coli. Blood cultures pending. Continue treatment with IV ceftriaxone for now. Hold on further IV fluids, can start Levophed as needed to maintain MAP greater than 65. Hold on coin dealer consult for now, can add as needed. 2. Gross hematuria, mild acute blood loss anemia See subjective above for further details. CT abdomen pelvis on admit showed diffuse bladder wall thickening with a 1.5 cm x 1.4 cm polypoid lesion at the base of the bladder. Suspected that hematuria is multifactorial due to bladder lesion with UTI while on aspirin and Plavix dual therapy. Had traumatic Andrews placement in the ED suspected due to BPH, likely also factoring in. Andrews removed in ED due to patient discomfort. ? Hemoglobin 13.9 on admit, at baseline. Repeat hemoglobin 12.2 on morning of 09/30, with recheck 11.8 on afternoon of 09/30. Aspirin Plavix held on admission. Will restart baby aspirin tomorrow morning and continue to hold Plavix. Monitordaily CBC. Monitor closely for signs of worsening hematuria. Unfortunately no urology available here this week. Will plan for close outpatient follow-up withurology in the office next week for likely cystoscopy with biopsy. 3. History of CAD s/p CABG and recent stenting ? Follows with [facility]. Most recent stenting was done in December 2022. On home aspirin and Plavix. Aspirin and Plavix both held on admit, will restart aspirin on 10/01. Will continue to hold Plavix for suspected urology procedure next week. Has outpatient follow-up with cardiology scheduled for 10/13. 4. BART on CKD stage III ? Creatinine 1.36 on admit, appeared to be at baseline creatinine around 1.1- 1.4. Worsened to creatinine 1.88 on 09/30, suspected due to sepsis as noted above. Treating sepsis as noted above. Trend daily BMP and urine output. 5. Elevated transaminases ? AST 209, ALT 185, alk phos 213, T. bili 1.80 on 09/30. No previous history of elevated LFTs. CT abdomen pelvis on admit showed history of cholecystectomy, decreased liver attenuation consistent with steatosis, no other RUQ pathology. Seems most consistent with mild ischemic hepatitis due to sepsis but will obtainRUQ ultrasound for further evaluation. Trend daily LFTs. 6. Suspected BPH with obstructive symptoms ? No reported history of BPH per patient. However given UTI on admit and heterogenously enlarged prostate on CT on admit, strongly suspect BPH. PSA mildly elevated at 5.03. Will plan to initiate patient on Flomax prior to discharge and patient will need close outpatient urology follow-up as noted above. Chronic medical conditions: ? Recent history of VTE s/p IVC filter placement: Found on CT imaging on 05/21/2023 to have a saddle PE, started on Eliquis and stable for discharge on 05/23. Unfortunately had an upper GI bleed with acute blood loss anemia requiring admission on 05/29-. AC was discontinued and IVC filter was placed on 06/03. ? History of GERD with Ogden's esophagus and recent upper GI bleed: Had upper GI bleed while on Eliquis as noted above. Per Dr. Rose's note on 07/15, patient has intermittent reflux typically related to lifestyle choices, Protonixwas reduced from twice daily to daily at that time. Currently stable and asymptomatic. Continue home PPI daily. ? Hypertension: Holding home amlodipine and Lopressor. ? Hyperlipidemia: Intolerant to statins and fenofibrate. Monitor outpatient. ? Hypothyroidism: Stable. Continue home Synthroid. ? History of A-fib s/p radiofrequency ablation: Stable in normal sinus rhythm. ? History of KHANH positive with myalgias: Continue home low-dose prednisone. ? Insomnia: Continue home Benadryl. DVT prophylaxis: SCDs CODE STATUS: Full code, verified Expected disposition: Home, TBD Total clinical time spent by myself addressing the patient's medical issues, reviewing all the data, and collaborating with patient's care team: 50 minutes. Charges/Coding Visit Charges Inpatient E&M: 54013 Subs Hosp L3 10/01/23 1640 <Electronically signed by aJy Wright DO> Cosigner Signature (if applicable): CC: ~ Signed [facility] Work Phone: 1(169) 112-312105-01-2024 History and physical note Author Galilea Moncada [facility] September 30, 2023 6:36pm Note Date/Time September 30, 2023 4:14pm [facility] Medical Records Department [address] [place] [address] H&P Exam - Hospitalist 09/30/23 1556 MR#: [id number] Acct: [id number] Name: KULWANT ANDRADE Rep #:[id number] : 1940 83 From: Galilea Pena DO PCP: Dr. Jose Hooks MD Status:ADM I N [id number] - General General Date of Admission: 09/30/23 Date of Service: 09/30/23 Chief Complaint: Gross Hematuria. HPI Narrative KULWANT ANDRADE, is a 83 M with a past medical history of essential hypertension, hyperlipidemia; with intolerance to statin and fenofibrate with myalgias, hypothyroidism, CAD; status post CABG x 3 (2020) plus LAD stent (2022) on BASA and Plavix, history of PE, history of atrial fibrillation; with history of radiofrequency ablation (2002), history of TIA, GERD; history of GI bleed, fibromyalgia, degenerative disc disease; with history of back surgery, history of appendectomy, BPH, history of renal calculi, history of benign neoplasm of both kidneys; with history of kidney surgery and osteoarthritis who presents to [facility] ER complaining of gross hematuria. Mr. Andrade reports his symptoms began earlier today with the abrupt onset of gross hematuria as well as passing blood clots. He states he has taken his aspirin and Plavix today but he denies being on any other anticoagulants or antiplateletagents. He also complains of diffuse joint pain which is chronic for him but hedenies related dysuria, fever, chills, nausea, vomiting, chest pain or shortnessof breath. He denies similar previous episodes. In the ER his CT scan of the abdomen and pelvis revealed a suspected polypoid bladder wall mass with a heterogenously enlarged prostate with indentation at the bladder base and bilateral renal cysts that are more prominent on the left complicated by urinalysispositive for acute cystitis; with gross hematuria along with severe chills with leukocytosis of 12.9 present on admission and he was then admitted to the general medical floor for ongoing care for status expected to be greater than 48hours. 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 Bigeminy BPH (benign prostatic hyperplasia) CAD (coronary artery disease) Cardiomyopathy in other diseases classified elsewhere Coronary artery disease D-dimer, elevated DDD (degenerative disc disease) Dyspnea on exertion Edema Essential hypertension Fibromyalgia GI bleed Hemorrhoid HTN (hypertension) Hyperlipidemia Hypothyroid Kidney stones Nasal sinus polyp Postoperative atrial fibrillation Premature atrial contractions Premature ventricular contraction Pulmonary embolism Pulmonary nodule Syncope TIA (transient ischemic attack) White coat syndrome with hypertension Home Medications cholecalciferol (vitamin D3) 25 mcg (1,000 unit) capsule 25 mcg PO DAILY SUPPLEMENT 12/25/21 [History Last Taken 09/30/23] amlodipine 2.5 mg tablet 2.5 mg PO DAILY BLOOD PRESSURE #60 tabs 01/05/23 [Rx Last Taken 09/30/23] clopidogrel 75 mg tablet 75 mg PO DAILY BLOOD THINNER #30 tabs 01/05/23 [Rx Last Taken 09/30/23] blood pressure monitor #1 ea 01/15/23 [Rx Last Taken Unknown] metoprolol tartrate 50 mg tablet 50 mg PO BID BLOOD PRESSURE #60 tabs 02/24/23 [Rx Last Taken 09/30/23] levothyroxine 88 mcg tablet 88 mcg PO DAILY THYROID 05/29/23 [History Last Taken 09/30/23] acetaminophen 500 mg tablet (Tylenol Extra Strength) 1,000 mg PO Q6H PRN fever or pain 09/30/23 [History Last Taken 09/30/23] aspirin 81 mg tablet,delayed release (Adult Aspirin Regimen) 81 mg PO DAILY 09/30/23 [History Last Taken 09/30/23] cephalexin 500 mg capsule 500 mg PO BID #14 caps 09/30/23 [Rx Last Taken Unknown] diphenhydramine 25 mg-acetaminophen 500 mg tablet (Tylenol PM Extra Strength) 2 tab PO QHS 09/30/23 [History Last Taken 09/29/23] pantoprazole 40 mg tablet,delayed release 40 mg PO DAILY ACID REFUX 09/30/23 [History Last Taken 09/30/23] prednisone 5 mg tablet 5 mg PO DAILY 09/30/23 [History Last Taken 09/30/23] Allergy/AdvReac Type Severity Reaction Status Date / Time erythromycin base Allergy Hives Verified 09/30/23 09:39 amoxicillin [From Augmentin] AdvReac Severe Itching Verified 09/30/23 09:39 atorvastatin AdvReac Severe myalgias Verified 09/30/23 09:39 clavulanic acid AdvReac Severe Itching Verified 09/30/23 09:39 [From Augmentin] fenofibrate [From Tricor] AdvReac Severe myalgias Verified 09/30/23 09:39 levofloxacin [From Levaquin] AdvReac Unknown Unknown Verified 09/30/23 09:39 Family History Father CVA (cerebral vascular accident) Hypertension Heart disease Mother CAD (coronary artery disease) Brother Hypertension Brother CAD (coronary artery disease) Hypertension Sister Hypertension Sister Patent foramen ovale Sister Hypertension Lung cancer Other Dyspnea on exertion Surgical History H/O hemorrhoidectomy History of back surgery History of cholecystectomy History of coronary artery bypass graft x 3 (~02/26/21) History of coronary artery stent placement History of kidney surgery History of placement of stent in LAD coronary artery (01/05/23) History of radiofrequency ablation procedure for cardiac arrhythmia (~10/2002) Hx of appendectomy Hx of CABG Social History household members: none Smoking Status: Never smoker alcohol intake: never substance use type: does not use ROS ROS Narrative Review of systems: General: Patient denies fevers or chills. HENT: Denies headache, denies stuffy nose, denies sore throat EYES: Denies changes in vision or discharge from eyes. Resp: Denies cough, denies shortness of breath Cardiac: Denies chest pain, palpitations or heart racing. GI: Denies abdominal pain, denies changes in bowel, denies nausea or vomiting. : Patient admits to gross hematuria hematuria but he denies dysuria. Extremity: Denies swelling Musculoskeletal: Feels somewhat generally weak and unwell with patient complaining of arthralgias but he denies myalgias. Neuro: Patient denies headache, paresthesias or focal neurologic weakness. Heme: Patient admits to gross hematuria but he denies bruising. Skin: Denies rashes Psychiatric: No complaints voiced related uncontrolled depression or anxiety. Endocrine: No polyuria, polydipsia or polyphagia. The rest of the 14 point ROS was negative except for positives in HPI. Vital Signs Vital Signs Vital Signs: 09/30/23 09:37 09/30/23 11:37 09/30/23 13:00 Temperature 97.8 F Temperature Source Temporal Pulse Rate 59 L 51 L 57 L Respiratory Rate 16 16 14 Blood Pressure 119/75 135/98 H 150/82 H Blood Pressure Mean 89 110 104 Pulse Ox 98 93 95 Oxygen Delivery Method Room Air Room Air Room Air 09/30/23 15:00 Temperature Temperature Source Pulse Rate 57 L Respiratory Rate 16 Blood Pressure 148/87 H Blood Pressure Mean 107 Pulse Ox 97 Oxygen Delivery Method Room Air Weight Weight: 170 lb Body Mass Index (BMI) 23.7 Physical Exam Const alert, oriented x3, no apparent distress, average body habitus and healthy appearing General Appearance: cooperative HEENT normocephalic, head/scalp atraumatic, hearing grossly normal bilaterally and moist oral mucous membranes Eyes PERRL and EOMs intact bilaterally Neck no lymphadenopathy and supple Resp normal respiratory effort, no retractions, no use of accessory muscles and clearto auscultation bilaterally Cardio regular rate and regular rhythm GI normal to inspection, nondistended, normoactive bowel sounds, soft to palpation,non-tender and non-distended Extremity normal to inspection and full ROM Skin Skin Narrative: Negative for evidence of abscess, jaundice or rash. Neuro oriented x3, CN's II-XII intact bilaterally, moves all extremities and no focal motor deficits Sensorium / Orientation: awake, alert, oriented to person, oriented to place andoriented to time Speech: speech normal Motor Exam: strength 5/5 throughout Psych affect normal Results Medical Records Data Attestation: I reviewed the patient's medical records Lab / Micro Data Attestation: I reviewed the patient's lab results. 09/30/23 10:05 09/30/23 10:05 Labs: Laboratory Results - last 24 hr 09/30/23 10:05: WBC 12.9 H, RBC 4.49 L, Hgb 13.9, Hct 42.6, MCV 94.9 H, MCH 31.0, MCHC 32.6, RDW Std Deviation 45.2 H, RDW Coeff of Sukumar 12.8, Plt Count 255,MPV 9.6, Immature Gran % (Auto) 0.300, Neut % (Auto) 82.8 H, Lymph % (Auto) 6.9 L, [place] % (Auto) 9.4, Eos % (Auto) 0.3, Baso % (Auto) 0.3, Absolute Neuts (auto)10.7 H, Absolute Lymphs (auto) 0.89, Nucleated RBC % 0, Sodium 141, Potassium 3.9, Chloride 113 H, Carbon Dioxide 23.0, Anion Gap 5, BUN 26 H, Creatinine 1.36H, Estim Creat Clear Calc 45.37, Est GFR (MDRD) Af Amer 65, Est GFR (MDRD) Non-Af 53 L, BUN/Creatinine Ratio 19.1, Glucose 111 H, Calcium 8.6, Urine Color Nargis, Urine Clarity Cloudy, Urine pH 6.5, Ur Specific [place] 1.015, Urine Protein 500 H, Urine Glucose (UA) Normal, Urine Ketones 5 H, Urine Occult Blood 250 H, Urine Nitrite Positive H, Urine Bilirubin 1 H, Urine Urobilinogen 1 H, UrLeukocyte Esterase 500 H, Urine RBC > 100 SEEN, Urine WBC >100 SEEN, Ur SquamousEpith Cells 0 SEEN, Urine Bacteria 0 SEEN, Urine Mucus 0 SEEN Imaging Radiology Impression Abdomen/Pelvis CT 09/30/23 09:58 IMPRESSION: Diffuse bladder wall thickening with polypoid lesion at the base of the bladder. Heterogeneous enlargement of the prostate with indentation at the bladder base. Bilateral renal cysts more prominent on the left side. Electronically Signed: Charanjit Smith MD at 11:30 EDT , Assessment & Plan Assessment/Plan (1) Hematuria: QUALIFIERS: Hematuria type: gross Qualified Code(s): R31.0 - Gross hematuria (2) Bladder mass: (3) Acute cystitis with hematuria: (4) Adverse drug reaction: QUALIFIERS: Encounter type: initial encounter Qualified Code(s): T50.905A - Adverse effect of unspecified drugs, medicaments and biological substances, initial encounter PLAN: Plan 1. Gross hematuria with CT positive for suspected polypoid bladder wall mass with a heterogenously enlarged prostate with indentation at the bladder base andbilateral cysts are more prominent on the left in the setting of known BPH and previously known benign renal masses with history of kidney surgery - Admit to general medical floor. Continue conservative care and consult Dr. Morgan of urology to see this patient on rounds in the a.m. with help appreciated in advance. 2. Acute cystitis; with gross hematuria complicating #1 - Continue empiric IV Rocephin and await culture and sensitivity data. Give Tylenol as needed [id number] (level 1-5 out of 10) pain or fever. 3. Adverse drug reaction to combination of baby aspirin and Plavix compounding #1 & #2 - Noted. These agents will be held until further notice. 4. CAD; status post CABG x 3 (2020) plus LAD stent (2022) on BASA and Plavix - Noted. 5. Essential hypertension - Hold scheduled antihypertensives until bleeding hasstopped. Give IV hydralazine as needed for systolic blood pressure greater than1 or 60 mmHg. 6. Hyperlipidemia; with intolerance to statin and fenofibrate with myalgias - Noted. Check lipid profile. 7. Hypothyroidism - Resume Synthroid as previous. 8. History of PE - Noted. 9. History of atrial fibrillation; with history of radiofrequency ablation (2002) - Stable. 10. History of TIA - Noted. 11. GERD; history of GI bleed - Noted. 12. Fibromyalgia - Stable. 13. DDD; with history of back surgery - Noted. 14. History of appendectomy - Noted. 15. History of renal calculi - Noted. 16. DVT prophylaxis - SCD's only in light of #1. Total time: Approximately 75 minutes. Charges/Coding Visit Charges Inpatient E&M: 46834 Init Hosp L3 09/30/23 6931 <Electronically signed by Galilea Lopez DO> Cosigner Signature (if applicable): CC: Dr. Galilea Lopez DO; Dr. Jose Hooks MD~ Signed [facility] Work Phone: [phone]) 858-888705-01-2024 Discharge summary Author Barbara Mathew [facility] September 30, 2023 4:03pm Note Date/Time September 30, 2023 10:08a m [facility] Medical Records Department [address] [place] [address] Emergency Department Summary 09/30/23 MR#: [id number] Acct: [id number] Name: KULWANT ANDRADE Rep #:[id number] : 1940 83 From: Barbara Mathew MD PCP: Dr. Jose Hooks MD Status:REG E R Location: ED ADDENDUM by Dr. Barbara Mathew MD on 09/30/23 at 1603 Prior to discharge patient began having shaking chills. He does not feel well. Family also is uncomfortable with patient going home. Discussed with hospitalist and patient will be admitted. 09/30/23 1603<Electronically signed by Barbara Mathew MD> Cosigner Signature (if applicable): cc: Dr. Jose Hooks MD ~* Signed HPI History of Present Illness Chief Complaint: Complaint Informant: patient Narrative Narrative: 83-year-old male presenting with hematuria. Patient has had gross hematuria as well as clots. He states this started today. He is on aspirin, Plavix, no additional anticoagulants. He complains of diffuse joint pain which has been chronic. Denies abdominal or back pain. Denies fever. Denies chest pain or shortness of breath. Denies syncope. Prior similar symptoms: No Recent Illness/Hospitalization: No PFSH PFSH Medical History Acid reflux Atherosclerotic heart disease of hughes coronary artery without angina pectoris 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 Bigeminy BPH (benign prostatic hyperplasia) CAD (coronary artery disease) Cardiomyopathy in other diseases classified elsewhere Coronary artery disease D-dimer, elevated DDD (degenerative disc disease) Dyspnea on exertion Edema Essential hypertension Fibromyalgia GI bleed Hemorrhoid HTN (hypertension) Hyperlipidemia Hypothyroid Kidney stones Nasal sinus polyp Postoperative atrial fibrillation Premature atrial contractions Premature ventricular contraction Pulmonary embolism Pulmonary nodule Syncope TIA (transient ischemic attack) White coat syndrome with hypertension Home Medications cholecalciferol (vitamin D3) 25 mcg (1,000 unit) capsule 25 mcg PO DAILY SUPPLEMENT 12/25/21 [History Last Taken 09/30/23] amlodipine 2.5 mg tablet 2.5 mg PO DAILY BLOOD PRESSURE #60 tabs 01/05/23 [Rx Last Taken 09/30/23] clopidogrel 75 mg tablet 75 mg PO DAILY BLOOD THINNER #30 tabs 01/05/23 [Rx Last Taken 09/30/23] blood pressure monitor #1 ea 01/15/23 [Rx Last Taken Unknown] metoprolol tartrate 50 mg tablet 50 mg PO BID BLOOD PRESSURE #60 tabs 02/24/23 [Rx Last Taken 09/30/23] levothyroxine 88 mcg tablet 88 mcg PO DAILY THYROID 05/29/23 [History Last Taken 09/30/23] acetaminophen 500 mg tablet (Tylenol Extra Strength) 1,000 mg PO Q6H PRN fever or pain 09/30/23 [History Last Taken 09/30/23] aspirin 81 mg tablet,delayed release (Adult Aspirin Regimen) 81 mg PO DAILY 09/30/23 [History Last Taken 09/30/23] cephalexin 500 mg capsule 500 mg PO BID #14 caps 09/30/23 [Rx Last Taken Unknown] diphenhydramine 25 mg-acetaminophen 500 mg tablet (Tylenol PM Extra Strength) 2 tab PO QHS 09/30/23 [History Last Taken 09/29/23] pantoprazole 40 mg tablet,delayed release 40 mg PO DAILY ACID REFUX 09/30/23 [History Last Taken 09/30/23] prednisone 5 mg tablet 5 mg PO DAILY 09/30/23 [History Last Taken 09/30/23] Allergy/AdvReac Type Severity Reaction Status Date / Time erythromycin base Allergy Hives Verified 09/30/23 09:39 amoxicillin [From Augmentin] AdvReac Severe Itching Verified 09/30/23 09:39 atorvastatin AdvReac Severe myalgias Verified 09/30/23 09:39 clavulanic acid AdvReac Severe Itching Verified 09/30/23 09:39 [From Augmentin] fenofibrate [From Tricor] AdvReac Severe myalgias Verified 09/30/23 09:39 levofloxacin [From Levaquin] AdvReac Unknown Unknown Verified 09/30/23 09:39 Family History Father CVA (cerebral vascular accident) Hypertension Heart disease Mother CAD (coronary artery disease) Brother Hypertension Brother CAD (coronary artery disease) Hypertension Sister Hypertension Sister Patent foramen ovale Sister Hypertension Lung cancer Other Dyspnea on exertion Surgical History H/O hemorrhoidectomy History of back surgery History of cholecystectomy History of coronary artery bypass graft x 3 (~02/26/21) History of coronary artery stent placement History of kidney surgery History of placement of stent in LAD coronary artery (01/05/23) History of radiofrequency ablation procedure for cardiac arrhythmia (~10/2002) Hx of appendectomy Hx of CABG Social History household members: none Smoking Status: Never smoker alcohol intake: never substance use type: does not use ROS ROS ED Constitutional Constitutional ED: Denies fever(s) Eyes Eyes: Denies change in vision ENT ENT ED: Denies rhinorrhea or sore throat Cardiovascular Cardiovascular: Denies chest pain or palpitations Respiratory/Chest Respiratory/Chest: Denies cough or dyspnea Gastrointestinal Gastrointestinal: Denies abdominal pain, diarrhea, nausea or vomiting Genitourinary Genitourinary ED: Reports hematuria; Denies dysuria Musculoskeletal Musculoskeletal: Reports arthralgias Integumentary Denies rash Neurologic Neurologic: Denies headache(s) Psychiatric Psychiatric: Denies suicidal thoughts EXAM Physical Exam Const Vital Signs: 09/30/23 09:37 09/30/23 11:37 09/30/23 13:00 Temperature 97.8 F Temperature Source Temporal Pulse Rate 59 L 51 L 57 L Respiratory Rate 16 16 14 Blood Pressure 119/75 135/98 H 150/82 H Blood Pressure Mean 89 110 104 Pulse Ox 98 93 95 Oxygen Delivery Method Room Air Room Air Room Air 09/30/23 15:00 Temperature Temperature Source Pulse Rate 57 L Respiratory Rate 16 Blood Pressure 148/87 H Blood Pressure Mean 107 Pulse Ox 97 Oxygen Delivery Method Room Air Positive well nourished and well developed General Appearance ED: well developed HEENT Reports normocephalic and head/scalp atraumatic Eyes PERRL and EOMs intact bilaterally Neck supple General: Negative for tenderness Chest Wall inspection of chest normal Resp normal respiratory effort and clear to auscultation bilaterally Cardio regular rate and regular rhythm GI non-tender and non-distended Palpation: soft; Negative for guarding or rebound tenderness present no CVA tenderness Extremity normal to inspection Neuro oriented x3 Sensorium / Orientation: alert Psych mental status grossly normal MDM MDM MDM Narrative Medical decision making narrative: Anderws catheter will be placed and bladder will be irrigated. Andrews catheter wasplaced. Urine cleared quickly. Patient is unable to tolerate Andrews catheter inplace. It is removed. CBC shows white count 12.9, hemoglobin 13.9. BUN 26, creatinine 1.36. This is at his baseline. Urinalysis shows positive nitrite, over 100 red blood cells, over 100 white blood cells. Patient was given Rocephin. Urine culture was sent. He is able to urinate in the ED without difficulty. CT abdomen pelvis shows diffuse bladder wall thickening with polypoid lesion at the base of the bladder. Heterogeneous enlargement of the prostate with indentation at the bladder base. Bilateral renal cysts more prominent on the left side. Patient is feeling improved in the emergency room. He is comfortable with discharge home. He will need urology follow-up. He was given Dr. Perdomo for follow-up. Given prescription for Keflex. Advised signs and symptoms for which to return to the ED. History & Record Review Additional record(s) reviewed:: Prior labs Lab Data Attestation: I reviewed the patient's lab results. Labs: Laboratory Results - last 24 hr 09/30/23 10:05 WBC 12.9 H RBC 4.49 L Hgb 13.9 Hct 42.6 MCV 94.9 H MCH 31.0 MCHC 32.6 RDW Std Deviation 45.2 H RDW Coeff of Sukumar 12.8 Plt Count 255 MPV 9.6 Immature Gran % (Auto) 0.300 Neut % (Auto) 82.8 H Lymph % (Auto) 6.9 L [place] % (Auto) 9.4 Eos % (Auto) 0.3 Baso % (Auto) 0.3 Absolute Neuts (auto) 10.7 H Absolute Lymphs (auto) 0.89 Nucleated RBC % 0 Sodium 141 Potassium 3.9 Chloride 113 H Carbon Dioxide 23.0 Anion Gap 5 BUN 26 H Creatinine 1.36 H Estim Creat Clear Calc 45.37 Est GFR (MDRD) Af Amer 65 Est GFR (MDRD) Non-Af 53 L BUN/Creatinine Ratio 19.1 Glucose 111 H Calcium 8.6 Urine Color Nargis Urine Clarity Cloudy Urine pH 6.5 Ur Specific [place] 1.015 Urine Protein 500 H Urine Glucose (UA) Normal Urine Ketones 5 H Urine Occult Blood 250 H Urine Nitrite Positive H Urine Bilirubin 1 H Urine Urobilinogen 1 H Ur Leukocyte Esterase 500 H Urine RBC > 100 SEEN Urine WBC >100 SEEN Ur Squamous Epith Cells 0 SEEN Urine Bacteria 0 SEEN Urine Mucus 0 SEEN Radiography Diagnostic Testing: Clinical Impression(s) from Imaging Studies Abdomen/Pelvis CT 09/30/23 09:58 IMPRESSION: Diffuse bladder wall thickening with polypoid lesion at the base of the bladder. Heterogeneous enlargement of the prostate with indentation at the bladder base. Bilateral renal cysts more prominent on the left side. Electronically Signed: Charanjit Smith MD at 11:30 EDT , Discharge Plan Triage Chief Complaint: Complaint ED Provider: Barbara Mathew Dx/Rx/DC Orders Clinical Impression: Hematuria Instructions: ED Hematuria Prescriptions: New cephalexin 500 mg capsule 500 mg PO BID Qty: 14 0RF No Action cholecalciferol (vitamin D3) 25 mcg (1,000 unit) capsule 25 mcg PO DAILY (DME) blood pressure monitor Kit See Rx Instructions .Route Qty: 1 0RF Rx Instructions: As directed metoprolol tartrate 50 mg tablet 50 mg PO BID Qty: 60 11RF amlodipine 2.5 mg Tablet 2.5 mg PO DAILY Qty: 60 6RF clopidogrel 75 mg Tablet 75 mg PO DAILY Qty: 30 11RF levothyroxine 88 mcg tablet 88 mcg PO DAILY prednisone 5 mg tablet 5 mg PO DAILY aspirin [Adult Aspirin Regimen] 81 mg tablet,delayed release (DR/EC) 81 mg PO DAILY Tylenol PM Extra Strength 25-500 mg tablet 2 tab PO QHS acetaminophen [Tylenol Extra Strength] 500 mg tablet 1,000 mg PO Q6H PRN (Reason: fever or pain) pantoprazole 40 mg Tablet,Delayed Release (Dr/Ec) 40 mg PO DAILY Rx Instructions: Twice daily for 2 months and then once daily. Primary Care Provider: Jose Hooks Chi Referrals: Jese Perdomo MD [Med Staff - Active Staff] - Jose Hooks Chi, MD [Primary Care Provider] - Disposition Disposition: Home, Self Care What to do if you have Problems For any increased pain, shortness of breath, bleeding, nausea or vomiting, chestpain, or any unexpected problems, contact your Primary Care Provider. Call [facility] ([phone]) or report to the closest Emergency Room. Call 911 if necessary. 09/30/23 1527 <Electronically signed by Barbara Mathew MD> Cosigner Signature (if applicable): CC: Dr. Jose Hooks MD ~ Signed [facility] Work Phone: [phone] Discharge summary Author Barbara [facility] September 30, 2023 4:03pm Note Date/Time September 30, 2023 10:08a m [facility] Medical Records Department [address] [place] [address] Emergency Department Summary 09/30/23 MR#: [id number] Acct: [id number] Name: KULWANT ANDRADE Rep #:[id number] : 1940 83 From: Barbara Mathew MD PCP: Dr. Jose Hooks MD Status:REG E R Location: ED ADDENDUM by Dr. Barbara Mathew MD on 09/30/23 at 1603 Prior to discharge patient began having shaking chills. He does not feel well. Family also is uncomfortable with patient going home. Discussed with hospitalist and patient will be admitted. 09/30/23 1603<Electronically signed by Barbara Mathew MD> Cosigner Signature (if applicable): cc: Dr. Jose Hooks MD ~* Signed HPI History of Present Illness Chief Complaint: Complaint Informant: patient Narrative Narrative: 83-year-old male presenting with hematuria. Patient has had gross hematuria as well as clots. He states this started today. He is on aspirin, Plavix, no additional anticoagulants. He complains of diffuse joint pain which has been chronic. Denies abdominal or back pain. Denies fever. Denies chest pain or shortness of breath. Denies syncope. Prior similar symptoms: No Recent Illness/Hospitalization: No PFSH PFSH Medical History Acid reflux Atherosclerotic heart disease of hughes coronary artery without angina pectoris 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 Bigeminy BPH (benign prostatic hyperplasia) CAD (coronary artery disease) Cardiomyopathy in other diseases classified elsewhere Coronary artery disease D-dimer, elevated DDD (degenerative disc disease) Dyspnea on exertion Edema Essential hypertension Fibromyalgia GI bleed Hemorrhoid HTN (hypertension) Hyperlipidemia Hypothyroid Kidney stones Nasal sinus polyp Postoperative atrial fibrillation Premature atrial contractions Premature ventricular contraction Pulmonary embolism Pulmonary nodule Syncope TIA (transient ischemic attack) White coat syndrome with hypertension Home Medications cholecalciferol (vitamin D3) 25 mcg (1,000 unit) capsule 25 mcg PO DAILY SUPPLEMENT 12/25/21 [History Last Taken 09/30/23] amlodipine 2.5 mg tablet 2.5 mg PO DAILY BLOOD PRESSURE #60 tabs 01/05/23 [Rx Last Taken 09/30/23] clopidogrel 75 mg tablet 75 mg PO DAILY BLOOD THINNER #30 tabs 01/05/23 [Rx Last Taken 09/30/23] blood pressure monitor #1 ea 01/15/23 [Rx Last Taken Unknown] metoprolol tartrate 50 mg tablet 50 mg PO BID BLOOD PRESSURE #60 tabs 02/24/23 [Rx Last Taken 09/30/23] levothyroxine 88 mcg tablet 88 mcg PO DAILY THYROID 05/29/23 [History Last Taken 09/30/23] acetaminophen 500 mg tablet (Tylenol Extra Strength) 1,000 mg PO Q6H PRN fever or pain 09/30/23 [History Last Taken 09/30/23] aspirin 81 mg tablet,delayed release (Adult Aspirin Regimen) 81 mg PO DAILY 09/30/23 [History Last Taken 09/30/23] cephalexin 500 mg capsule 500 mg PO BID #14 caps 09/30/23 [Rx Last Taken Unknown] diphenhydramine 25 mg-acetaminophen 500 mg tablet (Tylenol PM Extra Strength) 2 tab PO QHS 09/30/23 [History Last Taken 09/29/23] pantoprazole 40 mg tablet,delayed release 40 mg PO DAILY ACID REFUX 09/30/23 [History Last Taken 09/30/23] prednisone 5 mg tablet 5 mg PO DAILY 09/30/23 [History Last Taken 09/30/23] Allergy/AdvReac Type Severity Reaction Status Date / Time erythromycin base Allergy Hives Verified 09/30/23 09:39 amoxicillin [From Augmentin] AdvReac Severe Itching Verified 09/30/23 09:39 atorvastatin AdvReac Severe myalgias Verified 09/30/23 09:39 clavulanic acid AdvReac Severe Itching Verified 09/30/23 09:39 [From Augmentin] fenofibrate [From Tricor] AdvReac Severe myalgias Verified 09/30/23 09:39 levofloxacin [From Levaquin] AdvReac Unknown Unknown Verified 09/30/23 09:39 Family History Father CVA (cerebral vascular accident) Hypertension Heart disease Mother CAD (coronary artery disease) Brother Hypertension Brother CAD (coronary artery disease) Hypertension Sister Hypertension Sister Patent foramen ovale Sister Hypertension Lung cancer Other Dyspnea on exertion Surgical History H/O hemorrhoidectomy History of back surgery History of cholecystectomy History of coronary artery bypass graft x 3 (~02/26/21) History of coronary artery stent placement History of kidney surgery History of placement of stent in LAD coronary artery (01/05/23) History of radiofrequency ablation procedure for cardiac arrhythmia (~10/2002) Hx of appendectomy Hx of CABG Social History household members: none Smoking Status: Never smoker alcohol intake: never substance use type: does not use ROS ROS ED Constitutional Constitutional ED: Denies fever(s) Eyes Eyes: Denies change in vision ENT ENT ED: Denies rhinorrhea or sore throat Cardiovascular Cardiovascular: Denies chest pain or palpitations Respiratory/Chest Respiratory/Chest: Denies cough or dyspnea Gastrointestinal Gastrointestinal: Denies abdominal pain, diarrhea, nausea or vomiting Genitourinary Genitourinary ED: Reports hematuria; Denies dysuria Musculoskeletal Musculoskeletal: Reports arthralgias Integumentary Denies rash Neurologic Neurologic: Denies headache(s) Psychiatric Psychiatric: Denies suicidal thoughts EXAM Physical Exam Const Vital Signs: 09/30/23 09:37 09/30/23 11:37 09/30/23 13:00 Temperature 97.8 F Temperature Source Temporal Pulse Rate 59 L 51 L 57 L Respiratory Rate 16 16 14 Blood Pressure 119/75 135/98 H 150/82 H Blood Pressure Mean 89 110 104 Pulse Ox 98 93 95 Oxygen Delivery Method Room Air Room Air Room Air 09/30/23 15:00 Temperature Temperature Source Pulse Rate 57 L Respiratory Rate 16 Blood Pressure 148/87 H Blood Pressure Mean 107 Pulse Ox 97 Oxygen Delivery Method Room Air Positive well nourished and well developed General Appearance ED: well developed HEENT Reports normocephalic and head/scalp atraumatic Eyes PERRL and EOMs intact bilaterally Neck supple General: Negative for tenderness Chest Wall inspection of chest normal Resp normal respiratory effort and clear to auscultation bilaterally Cardio regular rate and regular rhythm GI non-tender and non-distended Palpation: soft; Negative for guarding or rebound tenderness present no CVA tenderness Extremity normal to inspection Neuro oriented x3 Sensorium / Orientation: alert Psych mental status grossly normal MDM MDM MDM Narrative Medical decision making narrative: Andrews catheter will be placed and bladder will be irrigated. Andrews catheter wasplaced. Urine cleared quickly. Patient is unable to tolerate Andrews catheter inplace. It is removed. CBC shows white count 12.9, hemoglobin 13.9. BUN 26, creatinine 1.36. This is at his baseline. Urinalysis shows positive nitrite, over 100 red blood cells, over 100 white blood cells. Patient was given Rocephin. Urine culture was sent. He is able to urinate in the ED without difficulty. CT abdomen pelvis shows diffuse bladder wall thickening with polypoid lesion at the base of the bladder. Heterogeneous enlargement of the prostate with indentation at the bladder base. Bilateral renal cysts more prominent on the left side. Patient is feeling improved in the emergency room. He is comfortable with discharge home. He will need urology follow-up. He was given Dr. Perdomo for follow-up. Given prescription for Keflex. Advised signs and symptoms for which to return to the ED. History & Record Review Additional record(s) reviewed:: Prior labs Lab Data Attestation: I reviewed the patient's lab results. Labs: Laboratory Results - last 24 hr 09/30/23 10:05 WBC 12.9 H RBC 4.49 L Hgb 13.9 Hct 42.6 MCV 94.9 H MCH 31.0 MCHC 32.6 RDW Std Deviation 45.2 H RDW Coeff of Sukumar 12.8 Plt Count 255 MPV 9.6 Immature Gran % (Auto) 0.300 Neut % (Auto) 82.8 H Lymph % (Auto) 6.9 L [place] % (Auto) 9.4 Eos % (Auto) 0.3 Baso % (Auto) 0.3 Absolute Neuts (auto) 10.7 H Absolute Lymphs (auto) 0.89 Nucleated RBC % 0 Sodium 141 Potassium 3.9 Chloride 113 H Carbon Dioxide 23.0 Anion Gap 5 BUN 26 H Creatinine 1.36 H Estim Creat Clear Calc 45.37 Est GFR (MDRD) Af Amer 65 Est GFR (MDRD) Non-Af 53 L BUN/Creatinine Ratio 19.1 Glucose 111 H Calcium 8.6 Urine Color Nargis Urine Clarity Cloudy Urine pH 6.5 Ur Specific Courtland 1.015 Urine Protein 500 H Urine Glucose (UA) Normal Urine Ketones 5 H Urine Occult Blood 250 H Urine Nitrite Positive H Urine Bilirubin 1 H Urine Urobilinogen 1 H Ur Leukocyte Esterase 500 H Urine RBC > 100 SEEN Urine WBC >100 SEEN Ur Squamous Epith Cells 0 SEEN Urine Bacteria 0 SEEN Urine Mucus 0 SEEN Radiography Diagnostic Testing: Clinical Impression(s) from Imaging Studies Abdomen/Pelvis CT 09/30/23 09:58 IMPRESSION: Diffuse bladder wall thickening with polypoid lesion at the base of the bladder. Heterogeneous enlargement of the prostate with indentation at the bladder base. Bilateral renal cysts more prominent on the left side. Electronically Signed: Charanjit Smith MD at 11:30 EDT , Discharge Plan Triage Chief Complaint: Complaint ED Provider: Barbara Mathew Dx/Rx/DC Orders Clinical Impression: Hematuria Instructions: ED Hematuria Prescriptions: New cephalexin 500 mg capsule 500 mg PO BID Qty: 14 0RF No Action cholecalciferol (vitamin D3) 25 mcg (1,000 unit) capsule 25 mcg PO DAILY (DME) blood pressure monitor Kit See Rx Instructions .Route Qty: 1 0RF Rx Instructions: As directed metoprolol tartrate 50 mg tablet 50 mg PO BID Qty: 60 11RF amlodipine 2.5 mg Tablet 2.5 mg PO DAILY Qty: 60 6RF clopidogrel 75 mg Tablet 75 mg PO DAILY Qty: 30 11RF levothyroxine 88 mcg tablet 88 mcg PO DAILY prednisone 5 mg tablet 5 mg PO DAILY aspirin [Adult Aspirin Regimen] 81 mg tablet,delayed release (DR/EC) 81 mg PO DAILY Tylenol PM Extra Strength 25-500 mg tablet 2 tab PO QHS acetaminophen [Tylenol Extra Strength] 500 mg tablet 1,000 mg PO Q6H PRN (Reason: fever or pain) pantoprazole 40 mg Tablet,Delayed Release (Dr/Ec) 40 mg PO DAILY Rx Instructions: Twice daily for 2 months and then once daily. Primary Care Provider: Jose Hooks Chi Referrals: Jese Perdomo MD [Med Staff - Active Staff] - Jose Hokos Chi, MD [Primary Care Provider] - Disposition Disposition: Home, Self Care What to do if you have Problems For any increased pain, shortness of breath, bleeding, nausea or vomiting, chestpain, or any unexpected problems, contact your Primary Care Provider. Call [facility] ([phone]) or report to the closest Emergency Room. Call 911 if necessary. 09/30/23 1527 <Electronically signed by Barbara Mathew MD> Cosigner Signature (if applicable): CC: Dr. Jose Hooks MD ~ Signed [facility] Work Phone: 1(954) 575-513812-30-2023 Discharge summary Author Jaya Almanza [facility] May 30, 2023 2:24pm Note Date/Time May 30, 2023 2:24pm [facility] Medical Records Department [address] [place] [address] Discharge Summary 05/30/23 1420 MR#: [id number] Acct: [id number] Name: KULWANT ANDRADE Rep #:[id number] : 1940 82 From: Jaya Prince PCP: Dr. Jose Hooks MD Status:ADM I N Location: [place] [address] Providers Date of Admission: 05/29/23 Date of Discharge: 05/30/23 Primary Care Physician: Dr. Jose Hooks MD Consultations 05/29/23 17:42 Consult: Gastroenterology Routine Consulting Provider: [facility] Reason for Consult: GI bleed, ABLA EMERGENT Consult: No MD Notified: Yes Date Notified: 05/29/23 Time Notified: 16:13 Method of Notification: Verbal 05/30/23 11:41 Consult: Vascular Surgery Routine Consulting Provider: Lm Maxwell Reason for Consult: ivc FILTER Evaluation EMERGENT Consult: No MD Notified: Yes Date Notified: 05/30/23 Time Notified: 11:41 Method of Notification: Verbal Reason For Visit: GI BLEED, ABLA Diagnosis Discharge Diagnosis (1) GI bleed: Status: Acute Code(s): K92.2 - Gastrointestinal hemorrhage, unspecified Qualifiers: GI bleed type/associated pathology: unspecified gastrointestinal hemorrhage type Qualified Code(s): K92.2 - Gastrointestinal hemorrhage, unspecified Plan The patient is an 82 y/o M is being admitted for darker stool, bleeding gums which is minor and transient. Denies chest pain or shortness of breath. Recently patient was discharged 1 week ago on Eliquis after diagnosis with pulmonary embolism. #1. Acute GI Bleed w/ resultant Acute Blood Loss Anemia most likely due to anticoagulation/Eliquis and Plavix: Patient is being admitted in PCP. Patient baseline hemoglobin is around 14.5 and is maintained on diet. On IV PPI. N.p.o. after midnight. GI is consulted. 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 - Small hiatal hernia. - No gross lesions in the second portion of the duodenum. - No specimens collected. Recommendation: - [facility]. - Resume previous diet. - Continue present medications. - Repeat EGD when patient can be off antiplatelets and anticoagulation for biopsies of Ogden's esophagus -Consider colonoscopy due to no evidence of acute GI bleed seen on his endoscopy #2. Recent BL Pulmonary Emboli with early cardiac strain concern: Hold Eliquis. On transient heparin drip until further GI evaluation. 05/30: Hold Eliquis for [address] Lm Maxwell and vascular surgery consult requested. Follow-up in the office within 1 week for possible IVC filter insertion. Continue Plavix. #3. Recent presentation for dysarthria and general weakness and myoclonus: As noted MRI of the brain with no acute findings, EEG negative, TSH and ammonia levels normal, U tox negative during last hospital workup. Patient was referredto tertiary facility for further workup of possible differential diagnosis of autoimmune workup and paraneoplastic process. LP could not be performed last time because of Plavix which needs to be continued for 12 months. #4. CAD: Most recent intervention 01/06/2023 with noted 90% proximal, 70% mid LAD, SPRINGER to LAD atretic, 80% anastomotic lesion, 100% mid LCx, SVG to OM 100%, OM2 filling retrogradely via collaterals from the R PLV, 1 9% proximal RCA, SVG to RPDA patent, hughes RPDA DA 60% distal, small 1.5 mm vessel, successful REKHA mid LAD, successful REKHA proximal LAD with aspirin indefinitely and noted intention for Plavix for at least 12 months. continue Plavix, not on statin therapy but will continue Zetia and noted to be on Repatha outpatient, continue metoprolol, not on JOAQUIM or/ARB. #5. Hypertension: Continue home regimen including metoprolol, amlodipine, PRN hydralazine. #6. Hyperlipidemia: Patient is on Zetia, not on statin therapy with myalgias reported with outpatient Repatha therapy noted. #7. Hypothyroidism: We will continue patient home levothyroxine regimen. #8. History of postoperative PAF: s/p prior RFA. Patient currently upon presentation recently initiated on Eliquis secondary to concurrent new diagnosis of multiple bilateral pulmonary emboli however presents with bleeding as noted, complicates presentation, continue home metoprolol therapy with hold parameters as needed. #9. GERD: maintain on PPI. #10. DVT prophylaxis: Given presentation as noted holding Eliquis but transition to heparin drip given recent bilateral PE with early strain concern pending GI evaluation with hold pending hemoglobin trending. #11. CODE status: Patient AGGIE is his daughter and living will is currently inplace. Discussed CODE status at length including difference between FULL code, DNR-CCA and DNR-CC status. Following discussions about the differences in these status, requested Full Code status. Discharge medication reconciliation done. Discharge follow-up instructions completed. Discharge process discussed with the patient and all questions wereanswered to patient's satisfaction. Follow with PCP in 1 to 2 weeks Total time spent, exact 35 minutes on discharge meds reconciliation, examination, coordination of care with nurses and ancillary staff, review of imaging and blood test and discussion with the patient on follow-up instructions. Medications at Discharge Home Medications cholecalciferol (vitamin D3) 25 mcg (1,000 unit) capsule 25 mcg PO DAILY SUPPLEMENT 12/25/21 amlodipine 2.5 mg tablet 2.5 mg PO DAILY BLOOD PRESSURE #60 tabs 01/05/23 clopidogrel 75 mg tablet 75 mg PO DAILY BLOOD THINNER #30 tabs 01/05/23 blood pressure monitor #1 ea 01/15/23 evolocumab 140 mg/mL subcutaneous pen injector (Repatha SureClick) 140 mg [id number] CHOLESTEROL #2 mL 01/15/23 ezetimibe 10 mg tablet (Zetia) 10 mg PO DAILY CHOLESTEROL #30 tabs 01/15/23 metoprolol tartrate 50 mg tablet 50 mg PO BID BLOOD PRESSURE #60 tabs 02/24/23 clonazepam 0.5 mg tablet 0.5 mg PO Q8H PRN myoclonic jerks #20 tabs 05/23/23 apixaban 5 mg tablet (Eliquis) 5 mg PO BID BLOOD THINNER 05/29/23 levothyroxine 88 mcg tablet 88 mcg PO DAILY THYROID 05/29/23 mirtazapine 7.5 mg tablet 7.5 mg PO QHS DEPRESSION 05/29/23 pantoprazole 40 mg tablet,delayed release 40 mg PO BID ACID REFUX 30 days #60 tabs 05/30/23 Physical Exam Narrative Seen and examined. Patient admitted with dark stool but no vomiting or upper GI bleed. Patient had EGD in the morning. Physical exam General: Alert, Oriented x3, Cooperative HEENT: Atraumatic, PERRLA, EOMI, Normocephalic Oral: No Gingival or Mucosal Lesions/ Ulcerations Neck: Supple, No JVD, Negative Carotid Bruits Lungs: Air entry diminished in bilateral lung bases. No crepitation/rhonchi Cardiovascular: Regular rate, Regular Rhythm, Normal S1, Normal S2, systolic murmur over right second ICS Abdomen: Bowel Sounds Present, Soft, Non Tender, Non-Distended : No renal angle tenderness. No suprapubic tenderness. Extremities: No edema, Capillary Refill Less than 3 Seconds Skin: No rashes, No breakdown Musculoskeletal: No Tenderness to Palpation of Joints or Extremities. No unilateral swelling or signs of DVT. Neurological: Cranial nerves II-XII grossly intact, DTR 2+/4. No acute focal neurological deficit. Psych/Mental Status: Normal Affect, Appropriate. Weight / BMI Weight Weight: 164 lb 10.965 oz Body Mass Index (BMI) 22.9 ABG / Lab / Microbiology Data 05/30/23 06:45 05/30/23 06:45 Laboratory: Laboratory Results - last 24 hr 05/29/23 14:40: WBC 7.3, RBC 4.32 L, Hgb 13.9, Hct 41.2, MCV 95.4 H, MCH 32.2 H,MCHC 33.7, RDW Std Deviation 43.1, RDW Coeff of Sukumar 12.4, Plt Count 370, MPV 9.0, Immature Gran % (Auto) 1.200 H, Neut % (Auto) 69.1, Lymph % (Auto) 13.6 L, [place] % (Auto) 9.2, Eos % (Auto) 6.3 H, Baso % (Auto) 0.6, Absolute Neuts (auto) 5.0, Absolute Lymphs (auto) 0.99, Nucleated RBC % 0, PT 17.0 H, INR 1.4, APTT 35.4, Sodium 144, Potassium 4.1, Chloride 113 H, Carbon Dioxide 28.0, Anion Gap 3 L, BUN 24 H, Creatinine 1.06, Estim Creat Clear Calc 57.39, Est GFR (MDRD) Af Amer 86, Est GFR (MDRD) Non-Af 71, BUN/Creatinine Ratio 22.6 H, Glucose 108 H, Calcium 8.5, Magnesium 2.1, Blood Type O POSITIVE, Antibody Screen NEGATIVE 05/29/23 18:50: Hgb 13.2, Hct 39.4 L 05/29/23 23:11: Hgb 13.8, Hct 41.8 05/30/23 01:15: Hgb 14.0, Hct 41.9, APTT 91.1 H* 05/30/23 06:45: WBC 7.5, RBC 4.24 L, Hgb 13.6, Hct 40.3, MCV 95.0 H, MCH 32.1 H,MCHC 33.7, RDW Std Deviation 42.5, RDW Coeff of Sukumar 12.3, Plt Count 339, MPV 8.9, Immature Gran % (Auto) 0.900, Neut % (Auto) 69.6, Lymph % (Auto) 15.0 L, [place] % (Auto) 9.0, Eos % (Auto) 5.0, Baso % (Auto) 0.5, Absolute Neuts (auto) 5.2, Absolute Lymphs (auto) 1.12, Nucleated RBC % 0, Sodium 144, Potassium 3.9, Chloride 115 H, Carbon Dioxide 26.0, Anion Gap 3 L, BUN 19 H, Creatinine 1.10, Estim Creat Clear Calc 56.59, Est GFR (MDRD) Af Amer 83, Est GFR (MDRD) Non-Af 68, BUN/Creatinine Ratio 17.3, Glucose 87, Calcium 8.5, Total Bilirubin 1.00, AST 10 L, ALT 19, Alkaline Phosphatase 67, Total Protein 5.6 L, Albumin 2.5 L, Globulin 3.1, Albumin/Globulin Ratio 0.8 L 05/30/23 09:57: APTT 85.7 H Microbiology: Microbiology 05/29/23 14:35 Stool Stool Occult Blood (CHRIS) - Final Occult Blood Positive D/C Instructions Discharge Diet: 2000 mg Sodium Diet Weight Bearing Status: Weight bearing as tolerated Call your doctor if you observe: Fever of 101 or Higher, Coldness, Increased Pain, Numbness or Tingling, Change in Color, Inability to urinate, Inability to have a bowel movement, Shortness of breath, Dizziness, Fainting spells, Swellingin the ankles, Chest pain, Prolonged hiccupping, Increased palpitations (irregular heartbeat) and Calf discomfort When: IN 2 WEEKS Meaningful Use Info Meaningful Use Diagnoses (Choose all that apply): None applicable Discharge Plan Admission Admit Date/Time: 05/29/23 16:11 Primary Reason for Your Visit: GI bleed Attending Provider: Jaya Almanza Primary Care Provider: Jose Hooks Chi Consulting Providers: Kusum Bishop; Lm Maxwell Discharge Orders/Prescriptions Prescriptions: Continued cholecalciferol (vitamin D3) 25 mcg (1,000 unit) capsule 25 mcg PO DAILY ezetimibe [Zetia] 10 mg tablet 10 mg PO DAILY Qty: 30 6RF Repatha SureClick 140 mg/mL pen injector 140 mg subcut Q2W Qty: 2 11RF (DME) blood pressure monitor Kit See Rx Instructions .Route Qty: 1 0RF Rx Instructions: As directed metoprolol tartrate 50 mg tablet 50 mg PO BID Qty: 60 11RF amlodipine 2.5 mg Tablet 2.5 mg PO DAILY Qty: 60 6RF clopidogrel 75 mg Tablet 75 mg PO DAILY Qty: 30 11RF clonazepam 0.5 mg Tablet 0.5 mg PO Q8H PRN (Reason: myoclonic jerks) Qty: 20 0RF levothyroxine 88 mcg tablet 88 mcg PO DAILY mirtazapine 7.5 mg tablet 7.5 mg PO QHS Changed pantoprazole 40 mg Tablet,Delayed Release (Dr/Ec) 40 mg PO BID 30 Days Qty: 60 2RF Rx Instructions: Twice daily for 2 months and then once daily. Held Eliquis 5 mg Tablet 5 mg PO BID Hold Instructions: Hold for 5 more days from 05/31/2023 Discontinued aspirin 81 mg Tablet,Chewable 81 mg PO DAILY Referrals / Follow Up: Lm Maxwell MD [Med Staff - Active Staff] - In 1 Week ( For IVC filter evaluation.) Taco Rose DO [Med Staff - Active Staff] - Within 1 Month Jose Hooks Chi, MD [Primary Care Provider] - Disposition Disposition (needs filled in before D/C Order can be placed): Home, Self Care Charges/Coding Addendum Addendum: Patient was admitted as inpatient but was discharged because of sooner recovery than expected at time of admission. Did not show significant drop in hemoglobinto require blood transfusion. Hemodynamically stable. Wants to go home. Visit Charges Inpatient E&M: 20257 Disch Hosp >30min 05/30/23 1424 <Electronically signed by Jaya Almanza MD> Cosigner Signature (if applicable): CC: Dr. Jaya Almanza MD; Dr. Jose Hooks MD~ Signed [facility] Work Phone: [phone] 883-805512-30-2023 Discharge summary Author Jaya Almanza [facility] May 30, 2023 2:20pm Note Date/Time May 30, 2023 2:17pm [facility] Medical Records Department [address] [place] [address] Instructions for Home/Discharge Instructions 05/30/23 1141 MR#: [id number] Acct: [id number] Name: KULWANT ANDRADE Rep #:[id number] : 1940 82 From: Jaya Prince PCP: Dr. Jose Hooks MD Status:ADM I N Discharge Instructions Diet Discharge Diet: 2000 mg Sodium Diet Activity Discharge Activity: Return to Normal Activity Weight Bearing Status: Weight bearing as tolerated Dressing / Incision Call your doctor if you observe: Fever of 101 or Higher, Coldness, Increased Pain, Numbness or Tingling, Change in Color, Inability to urinate, Inability to have a bowel movement, Shortness of breath, Dizziness, Fainting spells, Swellingin the ankles, Chest pain, Prolonged hiccupping, Increased palpitations (irregular heartbeat) and Calf discomfort Follow Up Care When: IN 2 WEEKS Test Results: Test results from this visit will be discussed in further detail at your follow- up appointment, if applicable. Discharge Plan Admission Admit Date/Time: 05/29/23 16:11 Primary Reason for Your Visit: GI bleed Attending Provider: Jaya Almanza Primary Care Provider: Jose Hooks Chi Consulting Providers: Kusum Bishop; Lm Maxwell Discharge Orders/Prescriptions Prescriptions: Continued cholecalciferol (vitamin D3) 25 mcg (1,000 unit) capsule 25 mcg PO DAILY ezetimibe [Zetia] 10 mg tablet 10 mg PO DAILY Qty: 30 6RF Repatha SureClick 140 mg/mL pen injector 140 mg subcut Q2W Qty: 2 11RF (DME) blood pressure monitor Kit See Rx Instructions .Route Qty: 1 0RF Rx Instructions: As directed metoprolol tartrate 50 mg tablet 50 mg PO BID Qty: 60 11RF amlodipine 2.5 mg Tablet 2.5 mg PO DAILY Qty: 60 6RF clopidogrel 75 mg Tablet 75 mg PO DAILY Qty: 30 11RF clonazepam 0.5 mg Tablet 0.5 mg PO Q8H PRN (Reason: myoclonic jerks) Qty: 20 0RF levothyroxine 88 mcg tablet 88 mcg PO DAILY mirtazapine 7.5 mg tablet 7.5 mg PO QHS Changed pantoprazole 40 mg Tablet,Delayed Release (Dr/Ec) 40 mg PO BID 30 Days Qty: 60 2RF Rx Instructions: Twice daily for 2 months and then once daily. Held Eliquis 5 mg Tablet 5 mg PO BID Hold Instructions: Hold for 5 more days from 05/31/2023 Discontinued aspirin 81 mg Tablet,Chewable 81 mg PO DAILY Referrals / Follow Up: Jose Hooks Chi, MD [Primary Care Provider] - Lm Maxwell MD [Med Staff - Active Staff] - In 1 Week ( For IVC filter evaluation.) Taco Rose DO [Med Staff - Active Staff] - Within 1 Month Disposition Disposition (needs filled in before D/C Order can be placed): Home, Self Care 05/30/23 1420<Electronically signed by Jaya Almanza MD>Jaya Almanza MD CC: Dr. Kusum Bishop MD; Dr. Lm Maxwell MD; Dr. Jose Hooks MD ~ Signed [facility] Work Phone: [phone]) 868-954012-30-2023 Consult note Author Taco Rose [facility] May 30, 2023 8:23am Note Date/Time May 30, 2023 8:15am [facility] Medical Records Department [address] [place] [address] Consultation - GI 05/29/23 2300 MR#: [id number] Acct: [id number] Name: KULWANT ANDRADE Rep #:[id number] : 1940 82 From: Taco Rose DO PCP: Dr. Jose Hooks MD Status:ADM I N Location: [place] [address] ADDENDUM by Taco Rose DO on 05/30/23 at 0823 Addendum 0 05/30/23 0823<Electronically signed by Taco Rose DO> Cosigner Signature (if applicable): cc: Dr. Kusum Bishop MD; Dr. Fred Tam MD; Dr. Jose Hooks MD ~* Signed HPI Consult Data Date of Consult: 05/29/23 HPI Narrative Reason for Consultation: GI bleed HPI Narrative: KULWANT ANDRADE, is a 82 M who presents with multiple episodes of blood per rectumand melanotic stools. He was just discharged from the hospital a week ago on Eliquis after being diagnosed with pulmonary emboli. Now he is having some darkstools and when he brushes his teeth he is having bleeding from his gums that isminor and transient. He called his doctor and was advised to come to the ER. Denies any other symptoms he is feeling okay, denies shortness of breath or chest pain right now. The significant other states that when he was on Eliquis in the past, he had the same thing happened and had acute blood loss anemia requiring transfusion ofseveral units of blood. He has a past medical history of PAF, HTN, HLD, Hypothyroidism, GERD, CAD s/p CABG and recent 01/06/2023 PCI, BPH, admission 05/20/23-05/23/23 with dysarthria as well as weakness with no evidence of any acute CVA with MRI of the brain demonstrating involutional and chronic ischemic changes, EEG negative, TSH/ammonia levels normal, UDS negative, pending paraneoplastic as well as autoimmune workup. CTPA noting multiple bilateral pulmonary emboli with early signs of right heartstrain started on Eliquis with echo demonstrating EF 55 to 60%. He was discharged to home who now re-presents to the [facility] ED on 05/29/23 with history ofonset of dark black appearing stools and bleeding from his gums since initiatingrecent Eliquis therapy prompting ED evaluation. Patient denies any marked symptoms from the anemia with no dyspnea, chest pain,lightheadedness or dizziness. He does state that when he had been on Eliquis inthe past he had a similar occurrence with acute blood loss anemia and did require transfusions at that time. In the ED patient with light brown stool with no gross blood noted despite positive Hemoccult. In the ED also no active bleeding from the gums. Workup in the ED included T98.2, heart 67, BP 136/86, respiratory rate 14, 100% room air, orthostatics notmarked appearing, CBC with WBC 7.3, hemoglobin 13.9, MCV 95.4, platelet 370 withmild increased immature granulocytes, BMP with chloride 113, BUN/creatinine 24/1.06, glucose 108 otherwise not marked appearing, stool guaiac positive, typeand screen initiated per ED physician. [facility] Medical History (Updated 05/30/23 @ 08:[address] España Friend, DO) Acid reflux Atherosclerotic heart disease of hughes coronary artery without angina pectoris 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 Bigeminy BPH (benign prostatic hyperplasia) CAD (coronary artery disease) Cardiomyopathy in other diseases classified elsewhere Coronary artery disease D-dimer, elevated DDD (degenerative disc disease) Dyspnea on exertion Edema Essential hypertension Fibromyalgia GI bleed Hemorrhoid HTN (hypertension) Hyperlipidemia Hypothyroid Kidney stones Nasal sinus polyp Postoperative atrial fibrillation Premature atrial contractions Premature ventricular contraction Pulmonary embolism Pulmonary nodule Syncope TIA (transient ischemic attack) White coat syndrome with hypertension Home Medications aspirin 81 mg chewable tablet 81 mg PO DAILY HEART HEALTH 02/22/21 [History Last Taken 05/29/23] pantoprazole 40 mg tablet,delayed release 40 mg PO DAILY ACID REFUX 30 days #30 tabs 03/12/21 [Rx Last Taken 05/29/23] cholecalciferol (vitamin D3) 25 mcg (1,000 unit) capsule 25 mcg PO DAILY SUPPLEMENT 12/25/21 [History Last Taken 05/29/23] amlodipine 2.5 mg tablet 2.5 mg PO DAILY BLOOD PRESSURE #60 tabs 01/05/23 [Rx Last Taken 05/29/23] clopidogrel 75 mg tablet 75 mg PO DAILY BLOOD THINNER #30 tabs 01/05/23 [Rx Last Taken 05/29/23] blood pressure monitor #1 ea 01/15/23 [Rx Last Taken Unknown] evolocumab 140 mg/mL subcutaneous pen injector (Repatha SureClick) 140 mg [id number] CHOLESTEROL #2 mL 01/15/23 [Rx Last Taken 05/27/23] ezetimibe 10 mg tablet (Zetia) 10 mg PO DAILY CHOLESTEROL #30 tabs 01/15/23 [Rx Last Taken 05/29/23] metoprolol tartrate 50 mg tablet 50 mg PO BID BLOOD PRESSURE #60 tabs 02/24/23 [Rx Last Taken 05/29/23] clonazepam 0.5 mg tablet 0.5 mg PO Q8H PRN myoclonic jerks #20 tabs 05/23/23 [Rx Last Taken Unknown] apixaban 5 mg tablet (Eliquis) 5 mg PO BID BLOOD THINNER 05/29/23 [History Last Taken 05/29/23] levothyroxine 88 mcg tablet 88 mcg PO DAILY THYROID 05/29/23 [History Last Taken 05/29/23] mirtazapine 7.5 mg tablet 7.5 mg PO QHS DEPRESSION 05/29/23 [History Last Taken 05/28/23] Allergy/AdvReac Type Severity Reaction Status Date / Time erythromycin base Allergy Hives Verified 05/29/23 14:05 amoxicillin [From Augmentin] AdvReac Severe Itching Verified 05/29/23 14:05 atorvastatin AdvReac Severe myalgias Verified 05/29/23 14:05 clavulanic acid AdvReac Severe Itching Verified 05/29/23 14:05 [From Augmentin] fenofibrate [From Tricor] AdvReac Severe myalgias Verified 05/29/23 14:05 levofloxacin [From Levaquin] AdvReac Unknown Unknown Verified 05/29/23 14:05 Family History Father CVA (cerebral vascular accident) Hypertension Heart disease Mother CAD (coronary artery disease) Brother Hypertension Brother CAD (coronary artery disease) Hypertension Sister Hypertension Sister Patent foramen ovale Sister Hypertension Lung cancer Other Dyspnea on exertion Surgical History H/O hemorrhoidectomy History of back surgery History of cholecystectomy History of coronary artery bypass graft x 3 (~02/26/21) History of coronary artery stent placement History of kidney surgery History of placement of stent in LAD coronary artery (01/05/23) History of radiofrequency ablation procedure for cardiac arrhythmia (~10/2002) Hx of appendectomy Hx of CABG Social History household members: none Smoking Status: Never smoker alcohol intake: never substance use type: does not use ROS ROS Narrative Admission Review of Systems: CONSTITUTIONAL: No weight loss, fever, chills, + weakness or fatigue. HEENT: + bleeding gums. Eyes: No visual loss, blurred vision, double vision or yellow sclerae. Ears, Nose, Throat: No hearing loss, sneezing, congestion, runny nose or sore throat. SKIN: No rash or itching, lesions, wounds. CARDIOVASCULAR: + Edema. No chest pain, chest pressure or chest discomfort, palpitations, orthopnea, syncopal events. RESPIRATORY: No shortness of breath, cough or sputum, wheezing, hemoptysis. GASTROINTESTINAL: + Dark appearing stools. No anorexia, nausea, vomiting or diarrhea, abdominal pain, BRBPR. GENITOURINARY: No dysuria, frequency, urgency or retention. NEUROLOGICAL: + Occasional myoclonic jerks, recent admission for dysarthria which appears resolved. No headache, dizziness, syncope, paralysis, ataxia, numbness or tingling in the extremities, focal weakness, change in bowel or bladder control, seizure. MUSCULOSKELETAL: + muscle, back pain, joint pain or stiffness. HEMATOLOGIC: No anemia. + Recent bleeding, easy bruising. LYMPHATICS: No enlarged nodes. No history of splenectomy. PSYCHIATRIC: + History anxiety and depression. ENDOCRINOLOGIC: No reports of sweating, cold or heat intolerance. No polyuria orpolydipsia. ALLERGIES: + Hx hives. Physical Exam Narrative Physical Examination: General: Awake, alert, oriented x 3 and cooperative, seated upright in ED bed, fatigued otherwise no acute complaints. Skin: Normal color, normal turgor, no icterus, no cyanosis except occasional staged ecchymoses, abrasion. HEENT: AT/NC, EOMI, PERRLA, mildly dry MM, no carotid bruits or JVD noted. Lungs: Mildly diminished, greater bases, appropriate effort no rales, ronchi or wheezing. Heart: Regular rate and rhythm; no gallop, rub audible. Abdomen: Soft, NTTP, ND, hyperactive BS, no appreciated HSM. Extremities: No cyanosis, no clubbing, peripheral pedal to distal harding edema noted. Neurological: Patient awake, alert, oriented as noted, cognitive function intact; pupils equally reactive to light and accommodation, cranial nerves grossly normal, moving all 4 extremities, no focal deficits, strength moderatelyglobally decreased secondary to acute presentation and underlying comorbidities. Psychiatric: Affect appears fatigued otherwise normal, no acute evidence of depressive or anxiety feelings but does have underlying history. Lab / Micro Data 05/30/23 06:45 05/30/23 06:45 Labs: Laboratory Results - last 24 hr 05/29/23 14:40: WBC 7.3, RBC 4.32 L, Hgb 13.9, Hct 41.2, MCV 95.4 H, MCH 32.2 H,MCHC 33.7, RDW Std Deviation 43.1, RDW Coeff of Sukumar 12.4, Plt Count 370, MPV 9.0, Immature Gran % (Auto) 1.200 H, Neut % (Auto) 69.1, Lymph % (Auto) 13.6 L, [place] % (Auto) 9.2, Eos % (Auto) 6.3 H, Baso % (Auto) 0.6, Absolute Neuts (auto) 5.0, Absolute Lymphs (auto) 0.99, Nucleated RBC % 0, PT 17.0 H, INR 1.4, APTT 35.4, Sodium 144, Potassium 4.1, Chloride 113 H, Carbon Dioxide 28.0, Anion Gap 3 L, BUN 24 H, Creatinine 1.06, Estim Creat Clear Calc 57.39, Est GFR (MDRD) Af Amer 86, Est GFR (MDRD) Non-Af 71, BUN/Creatinine Ratio 22.6 H, Glucose 108 H, Calcium 8.5, Magnesium 2.1, Blood Type O POSITIVE, Antibody Screen NEGATIVE 05/29/23 18:50: Hgb 13.2, Hct 39.4 L 05/29/23 23:11: Hgb 13.8, Hct 41.8 05/30/23 01:15: Hgb 14.0, Hct 41.9, APTT 91.1 H* 05/30/23 06:45: WBC 7.5, RBC 4.24 L, Hgb 13.6, Hct 40.3, MCV 95.0 H, MCH 32.1 H,MCHC 33.7, RDW Std Deviation 42.5, RDW Coeff of Sukumar 12.3, Plt Count 339, MPV 8.9, Immature Gran % (Auto) 0.900, Neut % (Auto) 69.6, Lymph % (Auto) 15.0 L, [place] % (Auto) 9.0, Eos % (Auto) 5.0, Baso % (Auto) 0.5, Absolute Neuts (auto) 5.2, Absolute Lymphs (auto) 1.12, Nucleated RBC % 0, Sodium 144, Potassium 3.9, Chloride 115 H, Carbon Dioxide 26.0, Anion Gap 3 L, BUN 19 H, Creatinine 1.10, Estim Creat Clear Calc 56.59, Est GFR (MDRD) Af Amer 83, Est GFR (MDRD) Non-Af 68, BUN/Creatinine Ratio 17.3, Glucose 87, Calcium 8.5, Total Bilirubin 1.00, AST 10 L, ALT 19, Alkaline Phosphatase 67, Total Protein 5.6 L, Albumin 2.5 L, Globulin 3.1, Albumin/Globulin Ratio 0.8 L Micro: Microbiology 05/29/23 14:35 Stool Stool Occult Blood (CHRIS) - Final Occult Blood Positive Assessment & Plan Assessment/Plan (1) GI bleed: QUALIFIERS: GI bleed type/associated pathology: unspecified gastrointestinal hemorrhage type Qualified Code(s): K92.2 - Gastrointestinal hemorrhage, unspecified PLAN: Plan The patient is an 82 y/o with past medical history of PAF, HTN, HLD, Hypothyroidism, GERD, CAD s/p CABG and recent 01/06/2023 PCI, BPH, admission 05/20/23-05/23/23 with dysarthria as well as weakness with no evidence of any acute CVA .he also had a CTPA noting multiple bilateral pulmonary emboli with early signs of right heart strain started on Eliquis with echo demonstrating EF 55 to 60% discharged to home who now re-presents to the [facility] ED on 05/29/23 with history of onset of dark black appearing stools and bleeding from his gums sinceinitiating recent Eliquis therapy. Acute GI Bleed w/ resultant Acute Blood Loss Anemia recently initiated on anticoagulation secondary to #2 complicated by recent PCI and necessity also of antiplatelet therapy: Admission Hgb 13.9 decreased from recent 05/20/2023 hemoglobin 15.2, will admit to PCU, holding eliquis, hospitalist continued antiplatelet therapy given recent PCI, given BL PE with early strain concern he was placed on heparin drip in the interim He also has recent BL Pulmonary Emboli with early cardiac strain concern: His Eliquis is on hold. However given recent significant bilateral pulmonary emboliwith early strain he was placed on a heparin drip. He should undergo an upper and lower endoscopy to evaluate his upper GI tract and lower GI tract for causesof GI bleed and underlying cause of patient's hypercoagulable state causing PE and possible TIA causing altered mental status. Charges/Coding Visit Charges Inpatient E&M: 86539 Init Hosp L3 05/30/23 0822 <Electronically signed by Taco Friend DO> Cosigner Signature (if applicable): CC: Dr. Kusum Bishop MD; Dr. Fred Tam MD; Dr. Jose Hooks MD~ Signed [facility] Work Phone: 1(320) 712-849512-30-2023 Procedure [facility] 05-30-2023 Procedure [facility]12-30-2023 Discharge summary Author Fred Tam [facility] May 29, 2023 11:37pm Note Date/Time May 29, 2023 2:34pm [facility] Medical Records Department [address] [place] [address] Emergency Department Summary 05/29/23 MR#: [id number] Acct: [id number] Name: KULWANT ANDRADE Rep #:[id number] : 1940 82 From: Fred Tam MD PCP: Dr. Jose Hooks MD Status:ADM I N Location: [place] [address] HPI HPI - GI History of Present Illness Chief Complaint: GI Bleed Informant: patient and spouse/S.O. Narrative Narrative: 82-year-old gentleman was just discharged from the hospital a week ago on Eliquis after being diagnosed with pulmonary emboli. Now he is having some darkstools and when he brushes his teeth he is having bleeding from his gums that isminor and transient. Called doctor and was advised to come to the ER. Denies any other symptoms he is feeling okay, denies shortness of breath or chest pain right now. The significant other states that when he was on Eliquis in the past, he had the same thing happened and had acute blood loss anemia requiring transfusion of several units of blood. [facility] Medical History (Updated 05/29/23 @ 23:[address] Fred Tam MD) Acid reflux Atherosclerotic heart disease of hughes coronary artery without angina pectoris 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 Bigeminy BPH (benign prostatic hyperplasia) CAD (coronary artery disease) Cardiomyopathy in other diseases classified elsewhere Coronary artery disease D-dimer, elevated DDD (degenerative disc disease) Dyspnea on exertion Edema Essential hypertension Fibromyalgia GI bleed Hemorrhoid HTN (hypertension) Hyperlipidemia Hypothyroid Kidney stones Nasal sinus polyp Postoperative atrial fibrillation Premature atrial contractions Premature ventricular contraction Pulmonary embolism Pulmonary nodule Syncope TIA (transient ischemic attack) White coat syndrome with hypertension Home Medications aspirin 81 mg chewable tablet 81 mg PO DAILY HEART HEALTH 02/22/21 [History Last Taken 05/29/23] pantoprazole 40 mg tablet,delayed release 40 mg PO DAILY ACID REFUX 30 days #30 tabs 03/12/21 [Rx Last Taken 05/29/23] cholecalciferol (vitamin D3) 25 mcg (1,000 unit) capsule 25 mcg PO DAILY SUPPLEMENT 12/25/21 [History Last Taken 05/29/23] amlodipine 2.5 mg tablet 2.5 mg PO DAILY BLOOD PRESSURE #60 tabs 01/05/23 [Rx Last Taken 05/29/23] clopidogrel 75 mg tablet 75 mg PO DAILY BLOOD THINNER #30 tabs 01/05/23 [Rx Last Taken 05/29/23] blood pressure monitor #1 ea 01/15/23 [Rx Last Taken Unknown] evolocumab 140 mg/mL subcutaneous pen injector (Repatha SureClick) 140 mg [id number] CHOLESTEROL #2 mL 01/15/23 [Rx Last Taken 05/27/23] ezetimibe 10 mg tablet (Zetia) 10 mg PO DAILY CHOLESTEROL #30 tabs 01/15/23 [Rx Last Taken 05/29/23] metoprolol tartrate 50 mg tablet 50 mg PO BID BLOOD PRESSURE #60 tabs 02/24/23 [Rx Last Taken 05/29/23] clonazepam 0.5 mg tablet 0.5 mg PO Q8H PRN myoclonic jerks #20 tabs 05/23/23 [Rx Last Taken Unknown] apixaban 5 mg tablet (Eliquis) 5 mg PO BID BLOOD THINNER 05/29/23 [History Last Taken 05/29/23] levothyroxine 88 mcg tablet 88 mcg PO DAILY THYROID 05/29/23 [History Last Taken 05/29/23] mirtazapine 7.5 mg tablet 7.5 mg PO QHS DEPRESSION 05/29/23 [History Last Taken 05/28/23] Allergy/AdvReac Type Severity Reaction Status Date / Time erythromycin base Allergy Hives Verified 05/29/23 14:05 amoxicillin [From Augmentin] AdvReac Severe Itching Verified 05/29/23 14:05 atorvastatin AdvReac Severe myalgias Verified 05/29/23 14:05 clavulanic acid AdvReac Severe Itching Verified 05/29/23 14:05 [From Augmentin] fenofibrate [From Tricor] AdvReac Severe myalgias Verified 05/29/23 14:05 levofloxacin [From Levaquin] AdvReac Unknown Unknown Verified 05/29/23 14:05 Family History Father CVA (cerebral vascular accident) Hypertension Heart disease Mother CAD (coronary artery disease) Brother Hypertension Brother CAD (coronary artery disease) Hypertension Sister Hypertension Sister Patent foramen ovale Sister Hypertension Lung cancer Other Dyspnea on exertion Surgical History H/O hemorrhoidectomy History of back surgery History of cholecystectomy History of coronary artery bypass graft x 3 (~02/26/21) History of coronary artery stent placement History of kidney surgery History of placement of stent in LAD coronary artery (01/05/23) History of radiofrequency ablation procedure for cardiac arrhythmia (~10/2002) Hx of appendectomy Hx of CABG Social History household members: none Smoking Status: Never smoker alcohol intake: never substance use type: does not use ROS ROS ED Constitutional Constitutional ED: Reports fatigue; Denies chills or fever(s) Eyes Eyes: Denies change in vision or diplopia ENT ENT ED: Reports other Details: gingival bleeding ; Denies rhinorrhea or sore throat Cardiovascular Cardiovascular: Denies chest pain or palpitations Respiratory/Chest Respiratory/Chest: Denies cough or dyspnea Gastrointestinal Gastrointestinal: Reports other Details: dark stools ; Denies abdominal pain, diarrhea, hematemesis, hematochezia, nausea or vomiting Genitourinary Genitourinary ED: Denies dysuria or hematuria Musculoskeletal Musculoskeletal: Denies back pain or neck pain Integumentary Denies abscess or rash Neurologic Neurologic: Denies headache(s), paresthesias or weakness Psychiatric Psychiatric: Denies anxiety or suicidal thoughts EXAM Physical Exam Const Vital Signs: 05/29/23 14:06 05/29/23 14:41 Temperature 98.2 F Temperature Source Temporal Pulse Rate 67 Pulse Rate [Sitting (for 1 minute prior to obtaining)] 64 Pulse Rate [Standing (for 1 minute prior to obtaining)] 68 Respiratory Rate 14 Blood Pressure 136/86 H Blood Pressure [Lying] 125/73 H Blood Pressure [Sitting (for 1 minute prior to obtaining)] 124/84 H Blood Pressure [Standing (for 1 minute prior to obtaining)] 130/78 H Blood Pressure Mean 102 Blood Pressure Mean [Lying] 90 Blood Pressure Mean [Sitting (for 1 minute prior to obtaining)] 97 Blood Pressure Mean [Standing (for 1 minute prior to obtaining)] 95 Pulse Ox 100 Oxygen Delivery Method Room Air Positive well nourished and well developed General Appearance ED: well developed and NAD HEENT Reports moist mucous membranes HEENT Narrative: There are multiple areas of gingival disease, there is no active bleeding, in the canines of the left maxillary dentition there is some evidence of recent bleeding. There is no sign of necrotic tissue or tenderness. normocephalic and atraumatic Eyes PERRL and EOMs intact bilaterally Neck full ROM and supple Resp normal respiratory effort and clear to auscultation bilaterally Cardio regular rate, regular rhythm and no murmurs GI non-tender and non-distended GI Narrative: On rectal, stool is light brown with no gross blood. Sent for Hemoccult. No rectal tenderness. Auscultation: normoactive bowel sounds Palpation: soft Back/Spine no CVA tenderness General Back: other FROM Extremity normal to inspection General Extremety ED: Negative for edema, pulses abnormal or tenderness General Extremity: Negative for edema or pulses abnormal Neuro oriented x3, CN's II-XII intact bilaterally and no sensory deficits noted Sensorium / Orientation: awake and alert Motor Exam: strength 5/5 throughout Skin no rashes or lesions noted and no wounds MDM MDM MDM Narrative Medical decision making narrative: Patient's stool was Hemoccult positive. His hemoglobin is 13.9 which is excellent, however it is down 1.3 g compared with 9 days ago. He is clinically and hemodynamically stable, but given his recent PE diagnosis, he will need to still be anticoagulated so I think he will need to have EGD to determine why he is bleeding to see if intervention can be done. I discussed that with Dr. Rose he is in agreement and will consult on the patient. Ordered the patient Protonix bolus and drip. He is clinically and hemodynamically stable, discussedwith hospitalist for admission. Lab Data Attestation: I reviewed the patient's lab results. Labs: Laboratory Results - last 24 hr 05/29/23 14:40 WBC 7.3 RBC 4.32 L Hgb 13.9 Hct 41.2 MCV 95.4 H MCH 32.2 H MCHC 33.7 RDW Std Deviation 43.1 RDW Coeff of Sukumar 12.4 Plt Count 370 MPV 9.0 Immature Gran % (Auto) 1.200 H Neut % (Auto) 69.1 Lymph % (Auto) 13.6 L [place] % (Auto) 9.2 Eos % (Auto) 6.3 H Baso % (Auto) 0.6 Absolute Neuts (auto) 5.0 Absolute Lymphs (auto) 0.99 Nucleated RBC % 0 PT 17.0 H INR 1.4 APTT 35.4 Sodium 144 Potassium 4.1 Chloride 113 H Carbon Dioxide 28.0 Anion Gap 3 L BUN 24 H Creatinine 1.06 Estim Creat Clear Calc 57.39 Est GFR (MDRD) Af Amer 86 Est GFR (MDRD) Non-Af 71 BUN/Creatinine Ratio 22.6 H Glucose 108 H Calcium 8.5 Magnesium 2.1 Blood Type O POSITIVE Antibody Screen NEGATIVE Management Discussion w/another healthcare provider: Hospitalist and Filter Machine Operator (GI friend) Discharge Plan Dx/Rx/DC Orders Clinical Impression: Anticoagulated by anticoagulation treatment, ABLA (acute blood loss anemia), Acute upper gastrointestinal bleeding, Bilateral pulmonary embolism Disposition Disposition: Acute Care Hospital [facility] Discharge Date/Time: 05/29/23 17:16 What to do if you have Problems For any increased pain, shortness of breath, bleeding, nausea or vomiting, chestpain, or any unexpected problems, contact your Primary Care Provider. Call [facility] ([phone]) or report to the closest Emergency Room. Call 911 if necessary. 05/29/23 1619 <Electronically signed by Fred Tam MD> Cosigner Signature (if applicable): CC: Dr. Jose Hooks MD ~ Signed [facility] Work Phone: 1(488) 703-401012-29-2023 History and physical note Author Kusum Bishop [facility] May 29, 2023 6:33pm Note Date/Time May 29, 2023 4:03pm [facility] Medical Records Department [address] [place] [id number] H&P Exam - Hospitalist 05/29/23 1601 MR#: [id number] Acct: [id number] Name: KULWANT ANDRADE Rep #:[id number] : 1940 82 From: Kusum Bishop MD PCP: Dr. Jose Hooks MD Status:ADM I N Location: [place] [id number] HPI - General General Date of Admission: 05/29/23 Date of Service: 05/29/23 Chief Complaint: Dark stools, bleeding from his gums. HPI Narrative The patient is an 82 y/o M w/ PMHx: Postoperative Hx PAF, HTN, HLD, Hypothyroidism, GERD, CAD s/p CABG and recent 01/06/2023 PCI, BPH, admission 05/20/23-05/23/23 with dysarthria as well as weakness with no evidence of any acute CVA with MRI of the brain demonstrating involutional and chronic ischemic changes, EEG negative, TSH/ammonia levels normal, UDS negative, pending paraneoplastic as well as autoimmune workup and unfortunate inability to obtain LP during presentation secondary to recent PCI with inability to hold Plavix with teleneurology recommendation for evaluation at a larger institution at follow-up with incidental CTPA noting multiple bilateral pulmonary emboli with early signs of right heart strain started on Eliquis with echo demonstrating EF 55 to 60% discharged to home who now re-presents to the [facility] ED on 05/29/23 with history of onset of dark black appearing stools and bleeding from his gums sinceinitiating recent Eliquis therapy prompting ED evaluation. Patient denies any marked symptoms from the anemia with no dyspnea, chest pain, lightheadedness or dizziness. He does state that when he had been on Eliquis in the past he had a similar occurrence with acute blood loss anemia and did require transfusions at that time. In the ED patient with light brown stool with no gross blood noted despite positive Hemoccult. In the ED also no active bleeding from the gums. Workup in the ED included T98.2, heart 67, BP 136/86, respiratory rate 14, 100% room air, orthostatics not marked appearing, CBC with WBC 7.3, hemoglobin 13.9, MCV 95.4, platelet 370 with mild increased immature granulocytes, BMP with chloride 113, BUN/creatinine 24/1.06, glucose 108 otherwise not marked appearing, stool guaiac positive, type and screen initiated per ED physician. In the ED patient ministered Protonix bolus with drip ongoing. ED discussed casewith Dr. Rose. [facility] Medical History (Updated 05/29/23 @ 18:[address] Kusum Bishop MD) Acid reflux Atherosclerotic heart disease of hughes coronary artery without angina pectoris 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 Bigeminy BPH (benign prostatic hyperplasia) CAD (coronary artery disease) Cardiomyopathy in other diseases classified elsewhere Coronary artery disease D-dimer, elevated DDD (degenerative disc disease) Dyspnea on exertion Edema Essential hypertension Fibromyalgia GI bleed Hemorrhoid HTN (hypertension) Hyperlipidemia Hypothyroid Kidney stones Nasal sinus polyp Postoperative atrial fibrillation Premature atrial contractions Premature ventricular contraction Pulmonary embolism Pulmonary nodule Syncope TIA (transient ischemic attack) White coat syndrome with hypertension Home Medications aspirin 81 mg chewable tablet 81 mg PO DAILY HEART HEALTH 02/22/21 [History Last Taken 05/29/23] pantoprazole 40 mg tablet,delayed release 40 mg PO DAILY ACID REFUX 30 days #30 tabs 03/12/21 [Rx Last Taken 05/29/23] cholecalciferol (vitamin D3) 25 mcg (1,000 unit) capsule 25 mcg PO DAILY SUPPLEMENT 12/25/21 [History Last Taken 05/29/23] amlodipine 2.5 mg tablet 2.5 mg PO DAILY BLOOD PRESSURE #60 tabs 01/05/23 [Rx Last Taken 05/29/23] clopidogrel 75 mg tablet 75 mg PO DAILY BLOOD THINNER #30 tabs 01/05/23 [Rx Last Taken 05/29/23] blood pressure monitor #1 ea 01/15/23 [Rx Last Taken Unknown] evolocumab 140 mg/mL subcutaneous pen injector (Repatha SureClick) 140 mg [id number] CHOLESTEROL #2 mL 01/15/23 [Rx Last Taken 05/27/23] ezetimibe 10 mg tablet (Zetia) 10 mg PO DAILY CHOLESTEROL #30 tabs 01/15/23 [Rx Last Taken 05/29/23] metoprolol tartrate 50 mg tablet 50 mg PO BID BLOOD PRESSURE #60 tabs 02/24/23 [Rx Last Taken 05/29/23] clonazepam 0.5 mg tablet 0.5 mg PO Q8H PRN myoclonic jerks #20 tabs 05/23/23 [Rx Last Taken Unknown] apixaban 5 mg tablet (Eliquis) 5 mg PO BID BLOOD THINNER 05/29/23 [History Last Taken 05/29/23] levothyroxine 88 mcg tablet 88 mcg PO DAILY THYROID 05/29/23 [History Last Taken 05/29/23] mirtazapine 7.5 mg tablet 7.5 mg PO QHS DEPRESSION 05/29/23 [History Last Taken 05/28/23] Allergy/AdvReac Type Severity Reaction Status Date / Time erythromycin base Allergy Hives Verified 05/29/23 14:05 amoxicillin [From Augmentin] AdvReac Severe Itching Verified 05/29/23 14:05 atorvastatin AdvReac Severe myalgias Verified 05/29/23 14:05 clavulanic acid AdvReac Severe Itching Verified 05/29/23 14:05 [From Augmentin] fenofibrate [From Tricor] AdvReac Severe myalgias Verified 05/29/23 14:05 levofloxacin [From Levaquin] AdvReac Unknown Unknown Verified 05/29/23 14:05 Family History Father CVA (cerebral vascular accident) Hypertension Heart disease Mother CAD (coronary artery disease) Brother Hypertension Brother CAD (coronary artery disease) Hypertension Sister Hypertension Sister Patent foramen ovale Sister Hypertension Lung cancer Other Dyspnea on exertion Surgical History H/O hemorrhoidectomy History of back surgery History of cholecystectomy History of coronary artery bypass graft x 3 (~02/26/21) History of coronary artery stent placement History of kidney surgery History of placement of stent in LAD coronary artery (01/05/23) History of radiofrequency ablation procedure for cardiac arrhythmia (~10/2002) Hx of appendectomy Hx of CABG Social History household members: none Smoking Status: Never smoker alcohol intake: never substance use type: does not use ROS ROS Narrative Admission Review of Systems: CONSTITUTIONAL: No weight loss, fever, chills, + weakness or fatigue. HEENT: + bleeding gums. Eyes: No visual loss, blurred vision, double vision or yellow sclerae. Ears, Nose, Throat: No hearing loss, sneezing, congestion, runny nose or sore throat. SKIN: No rash or itching, lesions, wounds. CARDIOVASCULAR: + Edema. No chest pain, chest pressure or chest discomfort, palpitations, orthopnea, syncopal events. RESPIRATORY: No shortness of breath, cough or sputum, wheezing, hemoptysis. GASTROINTESTINAL: + Dark appearing stools. No anorexia, nausea, vomiting or diarrhea, abdominal pain, BRBPR. GENITOURINARY: No dysuria, frequency, urgency or retention. NEUROLOGICAL: + Occasional myoclonic jerks, recent admission for dysarthria which appears resolved. No headache, dizziness, syncope, paralysis, ataxia, numbness or tingling in the extremities, focal weakness, change in bowel or bladder control, seizure. MUSCULOSKELETAL: + muscle, back pain, joint pain or stiffness. HEMATOLOGIC: No anemia. + Recent bleeding, easy bruising. LYMPHATICS: No enlarged nodes. No history of splenectomy. PSYCHIATRIC: + History anxiety and depression. ENDOCRINOLOGIC: No reports of sweating, cold or heat intolerance. No polyuria orpolydipsia. ALLERGIES: + Hx hives. Vital Signs Vital Signs Vital Signs: 05/29/23 14:06 05/29/23 14:41 Temperature 98.2 F Temperature Source Temporal Pulse Rate 67 Pulse Rate [Sitting (for 1 minute prior to obtaining)] 64 Pulse Rate [Standing (for 1 minute prior to obtaining)] 68 Respiratory Rate 14 Blood Pressure 136/86 H Blood Pressure [Lying] 125/73 H Blood Pressure [Sitting (for 1 minute prior to obtaining)] 124/84 H Blood Pressure [Standing (for 1 minute prior to obtaining)] 130/78 H Blood Pressure Mean 102 Blood Pressure Mean [Lying] 90 Blood Pressure Mean [Sitting (for 1 minute prior to obtaining)] 97 Blood Pressure Mean [Standing (for 1 minute prior to obtaining)] 95 Pulse Ox 100 Oxygen Delivery Method Room Air Weight Weight: 168 lb 10.458 oz Body Mass Index (BMI) 24.2 Physical Exam Narrative Physical Examination: General: Awake, alert, oriented x 3 and cooperative, seated upright in ED bed, fatigued otherwise no acute complaints. Skin: Normal color, normal turgor, no icterus, no cyanosis except occasional staged ecchymoses, abrasion. HEENT: AT/NC, EOMI, PERRLA, mildly dry MM, no carotid bruits or JVD noted. Lungs: Mildly diminished, greater bases, appropriate effort no rales, ronchi or wheezing. Heart: Regular rate and rhythm; no gallop, rub audible. Abdomen: Soft, NTTP, ND, hyperactive BS, no appreciated HSM. Extremities: No cyanosis, no clubbing, peripheral pedal to distal harding edema noted. Neurological: Patient awake, alert, oriented as noted, cognitive function intact; pupils equally reactive to light and accommodation, cranial nerves grossly normal, moving all 4 extremities, no focal deficits, strength moderately globally decreased secondary to acute presentation and underlying comorbidities. Psychiatric: Affect appears fatigued otherwise normal, no acute evidence of depressive or anxiety feelings but does have underlying history. Results Lab / Micro Data 05/29/23 14:40 05/29/23 14:40 Labs: Laboratory Results - last 24 hr 05/29/23 14:40: WBC 7.3, RBC 4.32 L, Hgb 13.9, Hct 41.2, MCV 95.4 H, MCH 32.2 H,MCHC 33.7, RDW Std Deviation 43.1, RDW Coeff of Sukumar 12.4, Plt Count 370, MPV 9.0, Immature Gran % (Auto) 1.200 H, Neut % (Auto) 69.1, Lymph % (Auto) 13.6 L, [place] % (Auto) 9.2, Eos % (Auto) 6.3 H, Baso % (Auto) 0.6, Absolute Neuts (auto) 5.0, Absolute Lymphs (auto) 0.99, Nucleated RBC % 0, Sodium 144, Potassium 4.1, Chloride 113 H, Carbon Dioxide 28.0, Anion Gap 3 L, BUN 24 H, Creatinine 1.06, Estim Creat Clear Calc 57.39, Est GFR (MDRD) Af Amer 86, Est GFR (MDRD) Non-Af 71, BUN/Creatinine Ratio 22.6 H, Glucose 108 H, Calcium 8.5, Blood Type O POSITIVE, Antibody Screen NEGATIVE Micro: Microbiology 05/29/23 14:35 Stool Stool Occult Blood (CHRIS) - Final Occult Blood Positive Assessment & Plan Assessment/Plan (1) GI bleed: PLAN: Plan The patient is an 82 y/o M w/ PMHx: Postoperative Hx PAF, HTN, HLD, Hypothyroidism, GERD, CAD s/p CABG and recent 01/06/2023 PCI, BPH, admission 05/20/23-05/23/23 with dysarthria as well as weakness with no evidence of any acute CVA with MRI of the brain demonstrating involutional and chronic ischemic changes, EEG negative, TSH/ammonia levels normal, UDS negative, pending paraneoplastic as well as autoimmune workup and unfortunate inability to obtain LP during presentation secondary to recent PCI with inability to hold Plavix with teleneurology recommendation for evaluation at a larger institution at follow-up with incidental CTPA noting multiple bilateral pulmonary emboli with early signs of right heart strain started on Eliquis with echo demonstrating EF 55 to 60% discharged to home who now re-presents to the [facility] ED on 05/29/23 with history of onset of dark black appearing stools and bleeding from his gums sinceinitiating recent Eliquis therapy prompting ED evaluation. #1. Acute GI Bleed w/ resultant Acute Blood Loss Anemia recently initiated on anticoagulation secondary to #2 complicated by recent PCI and necessity also of antiplatelet therapy: Admission Hgb 13.9 decreased from recent 05/20/2023 hemoglobin 15.2, will admit to PCU, holding eliquis, continue antiplt therapy given recent PCI, given BL PE with early strain concern will place on heparin drip in the interim, may necessitate vascular involvement for consideration IVC depending on Hgb trending and also findings on endoscopies, cycle H+Hs, maintainon IV PPI, NPO after midnight, GI consulted. #2. Recent BL Pulmonary Emboli with early cardiac strain concern: Given presentation will temporally hold Eliquis with transition given recent significant bilateral pulmonary emboli with early strain evident to heparin drippending GI evaluation as noted, unfortunately patient may need consideration of IVC filter placement if intervention delayed or unable to find source. #3. Recent presentation for dysarthria and general weakness: As noted MRI of the brain with no acute findings, EEG negative, TSH and ammonia levels normal, UDS negative, pending paraneoplastic and autoimmune workup with at discharge recommendation to follow-up at tertiary facility and per patient preference [facility] given atypical presentation per neurology recommendation. As noted previously unable to perform LP during previous admission secondary to inability to hold Plavix. #4. CAD: Most recent intervention 01/06/2023 with noted 90% proximal, 70% mid LAD, SPRINGER to LAD atretic, 80% anastomotic lesion, 100% mid LCx, SVG to OM 100%, OM2 filling retrogradely via collaterals from the R PLV, 1 9% proximal RCA, SVG to RPDA patent, hughes RPDA DA 60% distal, small 1.5 mm vessel, successful REKHA mid LAD, successful REKHA proximal LAD with aspirin indefinitely and noted intention for Plavix for at least 12 months. Given current presentation unfortunately will need to continue Plavix, not on statin therapy but will continue Zetia and noted to be on Repatha outpatient, continue metoprolol, not on JOAQUIM or/ARB. #5. Hypertension: Continue home regimen including metoprolol, amlodipine, PRN hydralazine. #6. Hyperlipidemia: Patient is on Zetia, not on statin therapy with myalgias reported with outpatient Repatha therapy noted. #7. Hypothyroidism: We will continue patient home levothyroxine regimen. #8. History of postoperative PAF: s/p prior RFA. Patient currently upon presentation recently initiated on Eliquis secondary to concurrent new diagnosisof multiple bilateral pulmonary emboli however presents with bleeding as noted, complicates presentation, continue home metoprolol therapy with hold parameters as needed. #9. GERD: As noted we will maintain on PPI. #10. DVT prophylaxis: Given presentation as noted holding Eliquis but transition to heparin drip given recent bilateral PE with early strain concern pending GI evaluation with hold pending hemoglobin trending. #11. CODE status: Patient AGGIE is his daughter and living will is currently inplace. Discussed CODE status at length including difference between FULL code, DNR-CCA and DNR-CC status. Following discussions about the differences in these status, requested Full Code status. Advanced Care Planning Face to Face Time: 16minutes. Charges/Coding Visit Charges Inpatient E&M: 50170 Init Hosp L3 Procedures Hospitalists Procedures: 61843 Advncd Care Plan 30 Min 05/29/23 1833 <Electronically signed by Kusum Bishop MD> Cosigner Signature (if applicable): CC: Dr. Kusum Bishop MD; Dr. Jose Hooks MD~ Signed [facility] Work Phone: 1(533) 496-466912-23-2023 Discharge summary Author Lm Delaney [facility] May 23, 2023 11:12am Note Date/Time May 23, 2023 11:06am [facility] Medical Records Department [address] [place] [id number] Discharge Summary 05/23/23 1056 MR#: [id number] Acct: [id number] Name: KULWANT ANDRADE Rep #:[id number] : 1940 82 From: Lm Delaney DO PCP: Dr. Jose Hooks MD Status:ADM I N Location: [place] [address] Providers Date of Admission: 05/20/23 Primary Care Physician: Dr. Jose Hooks MD Consultations 05/20/23 17:28 Consult: Tele-Neurology Routine Consulting Provider: [facility] Reason for Consult: Dysarthria and weakness EMERGENT Consult: No MD Notified: Yes Date Notified: 05/20/23 Time Notified: 17:28 Method of Notification: Answering Service Comments:: Stroke alert in ED Nursing Unit Staff Notify [facility] of Tele-Neurology Consult: Yes Reason For Visit: DYSARTHRIA WEAKNESS Diagnosis Discharge Diagnosis (1) Dysarthria: Status: Acute Code(s): R47.1 - Dysarthria and anarthria Plan Myoclonus * Etiology unclear, though this is not a CVA nor seizure nor intracranial mass. * Seen by [facility] tel[facility]: possibilities could be autoimmune encephalitis, medication withdrawal (baclofen), paraneoplastic etiology. * MRI brain showed involutional and chronic ischemic changes of the brain. No acute CVA. MRI brain w contrast did not show a mass. * EEG negative for seiziure. * TSH and ammonia level WNL. UDS negative. * Paraneopastic eval pending, autoimmune work up pending. * Unfortunately unable to perform an LP as patient had PCI in January and need to remain on clopidogrel uninterrupted for 12 months * Per [facility], pt should follow up with a more specialized neurologist at a larger institution, such as [facility] or [facility]. Pt prefers to follow up with [facility]. PE: * incidental finding on CT. 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 * Echo showed an EF of 55-60%. No mention of right heart strain. * On apixaban. Weakness * Unclear etiology but likely tied into the dysarthria somehow. * PT OT evaluate and treat Chronic conditions: * Hypertension: Hold off on metoprolol and amlodipine until the . * Hypothyroidism: Continue with levothyroxine VTE prophylaxis: Subcu heparin. CODE STATUS: Addressed with the patient. Patient was to be full code. Updated family at bedside. Medications at Discharge Home Medications aspirin 81 mg chewable tablet 81 mg PO DAILY HEART HEALTH 02/22/21 pantoprazole 40 mg tablet,delayed release 40 mg PO DAILY ACID REFUX 30 days #30 tabs 03/12/21 cholecalciferol (vitamin D3) 25 mcg (1,000 unit) capsule 25 mcg PO DAILY SUPPLEMENT 12/25/21 levothyroxine 75 mcg tablet 88 mcg PO DAILY@0600 THYROID 06/26/22 amlodipine 2.5 mg tablet 2.5 mg PO DAILY BLOOD PRESSURE #60 tabs 01/05/23 clopidogrel 75 mg tablet 75 mg PO DAILY BLOOD THINNER #30 tabs 01/05/23 blood pressure monitor #1 ea 01/15/23 evolocumab 140 mg/mL subcutaneous pen injector (Repatha SureClick) 140 mg [id number] CHOLESTEROL #2 mL 01/15/23 ezetimibe 10 mg tablet (Zetia) 10 mg PO DAILY CHOLESTEROL #30 tabs 01/15/23 metoprolol tartrate 50 mg tablet 50 mg PO BID BLOOD PRESSURE #60 tabs 02/24/23 apixaban 5 mg tablet (Eliquis) 10 mg (2 x 5 mg) PO BID #60 tabs 05/23/23 clonazepam 0.5 mg tablet 0.5 mg PO Q8H PRN myoclonic jerks #20 tabs 05/23/23 Weight / BMI Weight Weight: 74.3 kg Body Mass Index (BMI) 21.4 ABG / Lab / Microbiology Data 05/20/23 08:28 05/21/23 04:50 Radiography Diagnostic Testing: Radiology Impression Brain MRI 05/22/23 10:22 IMPRESSION: No evidence for enhancing intracranial mass. Electronically Signed: Sandra Huynh MD at 13:09 EST , D/C Instructions Discharge Diet: No restrictions Discharge Activity: Use Walker Meaningful Use Info Meaningful Use Diagnoses (Choose all that apply): None applicable Discharge Plan Admission Admit Date/Time: 05/20/23 12:06 Primary Reason for Your Visit: myoclonus. 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 Etiology is unclear. MRI is negative for stroke or any mass in your brain. EEG was negative for seizures. He had autoimmune workup which is currently pending. Please follow-up with your primary care doctor to see if you need a referral to networking technology instructor. 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 Options include: [facility] Movement Disorder [phone]. [facility] movement disorder [phone].[facility] [phone]. Discharge Orders/Prescriptions Prescriptions: New Eliquis 5 mg Tablet 10 mg PO BID Qty: 60 0RF clonazepam 0.5 mg Tablet 0.5 mg PO Q8H PRN (Reason: myoclonic jerks) Qty: 20 0RF Continued cholecalciferol (vitamin D3) 25 mcg (1,000 unit) capsule 25 mcg PO DAILY levothyroxine 75 mcg tablet 88 mcg PO DAILY@0600 ezetimibe [Zetia] 10 mg tablet 10 mg PO DAILY Qty: 30 6RF Repatha SureClick 140 mg/mL pen injector 140 mg subcut Q2W Qty: 2 11RF (DME) blood pressure monitor Kit See Rx Instructions .Route Qty: 1 0RF Rx Instructions: As directed metoprolol tartrate 50 mg tablet 50 mg PO BID Qty: 60 11RF aspirin 81 mg Tablet,Chewable 81 mg PO DAILY pantoprazole 40 mg Tablet,Delayed Release (Dr/Ec) 40 mg PO DAILY 30 Days Qty: 30 0RF amlodipine 2.5 mg Tablet 2.5 mg PO DAILY Qty: 60 6RF clopidogrel 75 mg Tablet 75 mg PO DAILY Qty: 30 11RF Discontinued furosemide [Lasix] 20 mg tablet 20 mg PO DAILY PRN (Reason: edema, sob, weight gain) Qty: 60 11RF Hold Instructions: Order Changed Referrals / Follow Up: Jose Hooks Chi, MD [Primary Care Provider] - Within 2 Weeks Disposition Disposition (needs filled in before D/C Order can be placed): Home, Self Care Charges/Coding Visit Charges Inpatient E&M: 88474 Disch Hosp >30min 05/23/23 1112 <Electronically signed by Lm Delaney DO> Cosigner Signature (if applicable): CC: Dr. Lm Delaney DO; Dr. Jose Hooks MD~ Signed [facility] Work Phone: 1(270) 313-952712-23-2023 Progress note Author Lm [facility] May 23, 2023 10:56am Note Date/Time May 23, 2023 8:15am [facility] Medical Records Department [address] [place] [address] Progress Note - Hospitalist 05/23/23 0806 MR#: [id number] Acct: [id number] Name: KULWANT ANDRADE Rep #:[id number] : 1940 82 From: Lm Delaney DO PCP: Dr. Jose Hooks MD Status:ADM I N Location: [place] [address] Reason for Visit Reason for Visit: Diagnoses Dysarthria and anarthria (05/20/23) Subjective Subjective Weakness improved. Objective Data Objective Data Vital Signs: Vital Signs Temp Pulse Resp BP Pulse Ox O2 Del Method 35.7 C L 57 L 16 126/82 H 98 Room Air 05/23/23 03:15 05/23/23 03:15 05/23/23 03:15 05/23/23 03:15 05/23/23 03:15 05/23/23 03:15 Oxygen Delivery Method Room Air Weight: 74.3 kg Body Mass Index (BMI) 21.4 Intake & Output: Intake and Output for Last 24 Hours 05/21/23 05/22/23 05/23/23 23:59 23:59 23:59 Intake Total 360 / 360 530 / 530 Output Total 250 / 250 Balance 110 / 110 530 / 530 Lab / Micro Data 05/20/23 08:28 05/21/23 04:50 Labs: Laboratory Results - last 24 hr 05/22/23 09:10: ESR 25 H, C-React Prot Ext Range 75.60 H Radiography Diagnostic Testing: Radiology Impression Brain MRI 05/22/23 10:22 IMPRESSION: No evidence for enhancing intracranial mass. Electronically Signed: Sandra Huynh MD at 13:09 EST , Physical Exam Const alert and no apparent distress Constitutional Narrative: improved dysarthria. Neuro no focal motor deficits Neuro Narrative: no myoclonus. Sensorium / Orientation: awake and alert Psych affect normal Assessment & Plan Assessment/Plan (1) Dysarthria: PLAN: Plan Myoclonus * Etiology unclear, though this is not a CVA nor seizure nor intracranial mass. * Seen by [facility]: possibilities could be autoimmune encephalitis, medication withdrawal (baclofen), paraneoplastic etiology. * MRI brain showed involutional and chronic ischemic changes of the brain. No acute CVA. MRI brain w contrast did not show a mass. * EEG negative for seiziure. * TSH and ammonia level WNL. UDS negative. * Paraneopastic eval pending, autoimmune work up pending. * Unfortunately unable to perform an LP as patient had PCI in January and need to remain on clopidogrel uninterrupted for 12 months * Per [facility], pt should follow up with a more specialized neurologist at a larger institution, such as [facility] or [facility]. Pt prefers to follow up with [facility]. PE: * incidental finding on CT. 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 * Echo showed an EF of 55-60%. No mention of right heart strain. * On apixaban. Weakness * Unclear etiology but likely tied into the dysarthria somehow. * PT OT evaluate and treat Chronic conditions: * Hypertension: Hold off on metoprolol and amlodipine until the . * Hypothyroidism: Continue with levothyroxine VTE prophylaxis: Subcu heparin. CODE STATUS: Addressed with the patient. Patient was to be full code. 05/23/23 1056 <Electronically signed by Lm Delaney DO> Cosigner Signature (if applicable): CC: ~ Signed [facility] Work Phone: 1(812) 971-765712-22-2023 Consult note Author Deborah Drake [facility] May 22, 2023 7:29pm Note Date/Time May 21, 2023 1:48pm [facility] Medical Records Department [address] [place] [address] Consultation - Neurology 05/21/23 1345 MR#: [id number] Acct: [id number] Name: KULWANT ANDRADE Rep #:[id number] : 1940 82 From: Deborah Drake MD PCP: Dr. Jose Hooks MD Status:ADM I N Location: [place] [address] Assessment and Plan: Neuro Assessment/Plan KULWANT ANDRADE is a 82 M with a past medical history of chronic baclofen use, history of CKD vs BART (unclear which because pt denies history of kidney disease), being evaluated by Teleneurology for myoclonus. On history, symptoms started suddently per pt and has been gradually progressive. Will need corroborating evidence as well. Exam with clear UMN signs of spasticity and +babinski and diffuse movement initiated myoclonus. MRI Brain benign or acute process or cortical diffusion restriction. There is diffuse atrophy and white matter disease. Ddx includes autoimmune encephalitis (especially given recent RSV vaccine), medication withdrawal (given recent decline in baclofen), possible paraneoplastic etiology. Cannot rule out degenerative state but no clear signs for this Plan: - CT chest/abdomen/pelvis - provide 1x dose baclofen 10mg - send the following serum labs: KHANH, ESR, paraneoplastic panel, anti-MOG, autoimune encephalitis panel (sendout lab), [id number], HIV, RPR, lyme - send UDS - recommend LP tomorrow with the following labs: cell count, protein, glucose, cytology, flow cytometry, HSV, VSV, VDRL, west nile virus, lyme, enterovirus, listeria monocytogenies, gram stain, CSF autoimmune panel (sendout lab), RT-QuIC Transfer to [facility] for the following reasons: I personally attended this patient and spent a total time of minutes evaluating this patient including clinical assessment, review of chart, medical history imaging, and determining appropriate treatment and workup. HPI Consult Data Date of Consult: 05/21/23 HPI Narrative HPI Narrative: KULWANT ANDRADE, is a 82 M who presents with dysarthria and weakness. Normally, the patient is very independent and speaks coherently. Patient beginning last night started having dysarthria as well as weakness. Patient was having an issue holding onto objects and dropping and was having shaking trying to hold and manipulates objects. Patient also with weakness in his legs. Had been feeling fine as of last night prior to this beginning. Patient denies any recent illness though he did have RSV about 3 weeks ago. He denies any new medications, denies any diphenhydramine, allergy medications, cold medications, antidepressants. So he presented to the emergency room and underwent neurologicworkup with CT of the head and CTA of the head and neck were unremarkable any acute process. There is ongoing symptoms, the hospital service was contacted and patient being hospitalized. Today, per progress note, Daughter informed nursing that patient may be taking CBD Gummies. Addressed with the patient and he absolutely denies any CBD or marijuana consumption in any form. States that he is speaking somewhat better but still having myoclonus. Neurologic History The above history was confirmed: day before yesterday per pt woke up with suddendysarthria and myoclonus. Denies any prior mycolonic symptoms, denies any mentalstatus or cognitive changes. He lives alone. Had a RSV vaccine 3 weeks ago. His voice sounds better to him but still shaking and difficulty feeding himself.Has tried standing up with a walker but arms are shaking poorly. Before all thisdid not use walker or cane. No new medications recently, no new doses of the medications. No recent stoppageof medication. No difficult using the restroom with this. Has been getting steroid shot in the hip and muscle relaxer been on oral prednisone 10mg. Does not remember the name of the muscle relaxer but baclofen sounds familiar to him. Stopped taking baclofen 1 month ago but was on it for 5 days daily and then would recycle 6 weeks later. Last dose of oral prednisone was 4 weeks ago too. Re baclofen, on further questioning, pt refilled his baclofen 05/04 and could have taken the medications for 5 days. Voice sounds almost back to normal, the shaking was in both arms and legs. No passing out or loss of periods of time. Will shaking and jerking with standing or eating. 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 Bigeminy BPH (benign prostatic hyperplasia) CAD (coronary artery disease) Cardiomyopathy in other diseases classified elsewhere D-dimer, elevated DDD (degenerative disc disease) Dyspnea on exertion Edema Essential hypertension Fibromyalgia Hemorrhoid HTN (hypertension) Hyperlipidemia Hypothyroid Nasal sinus polyp Postoperative atrial fibrillation Premature atrial contractions Premature ventricular contraction Pulmonary nodule Syncope White coat syndrome with hypertension Home Medications aspirin 81 mg chewable tablet 81 mg PO DAILY HEART HEALTH 02/22/21 [History Last Taken 05/20/23] pantoprazole 40 mg tablet,delayed release 40 mg PO DAILY ACID REFUX 30 days #30 tabs 03/12/21 [Rx Last Taken 05/20/23] cholecalciferol (vitamin D3) 25 mcg (1,000 unit) capsule 25 mcg PO DAILY SUPPLEMENT 12/25/21 [History Last Taken 05/20/23] levothyroxine 75 mcg tablet 88 mcg PO DAILY@0600 THYROID 06/26/22 [History Last Taken 05/20/23] furosemide 20 mg tablet (Lasix) 20 mg PO DAILY PRN edema, sob, weight gain #60 tabs 11/18/22 [Rx Last Taken Unknown] amlodipine 2.5 mg tablet 2.5 mg PO DAILY BLOOD PRESSURE #60 tabs 01/05/23 [Rx Last Taken 05/20/23] clopidogrel 75 mg tablet 75 mg PO DAILY BLOOD THINNER #30 tabs 01/05/23 [Rx Last Taken 05/20/23] blood pressure monitor #1 ea 01/15/23 [Rx Last Taken Unknown] evolocumab 140 mg/mL subcutaneous pen injector (Repatha SureClick) 140 mg [id number] CHOLESTEROL #2 mL 01/15/23 [Rx Last Taken 05/13/23] ezetimibe 10 mg tablet (Zetia) 10 mg PO DAILY CHOLESTEROL #30 tabs 01/15/23 [Rx Last Taken 05/20/23] metoprolol tartrate 50 mg tablet 50 mg PO BID BLOOD PRESSURE #60 tabs 02/24/23 [Rx Last Taken 05/20/23] Allergy/AdvReac Type Severity Reaction Status Date / Time erythromycin base Allergy Hives Verified 05/20/23 09:04 amoxicillin [From Augmentin] AdvReac Severe Itching Verified 05/20/23 09:04 atorvastatin AdvReac Severe myalgias Verified 05/20/23 09:04 clavulanic acid AdvReac Severe Itching Verified 04/15/23 15:28 [From Augmentin] fenofibrate [From Tricor] AdvReac Severe myalgias Verified 05/20/23 09:04 levofloxacin [From Levaquin] AdvReac Unknown Unknown Verified 05/20/23 09:04 Family History Father CVA (cerebral vascular accident) Hypertension Heart disease Mother CAD (coronary artery disease) Brother Hypertension Brother CAD (coronary artery disease) Hypertension Sister Hypertension Sister Patent foramen ovale Sister Hypertension Lung cancer Other Dyspnea on exertion Surgical History H/O hemorrhoidectomy History of back surgery History of cholecystectomy History of coronary artery bypass graft x 3 (~02/26/21) History of kidney surgery History of placement of stent in LAD coronary artery (01/05/23) History of radiofrequency ablation procedure for cardiac arrhythmia (~10/2002) Hx of appendectomy Social History household members: none Smoking Status: Never smoker alcohol intake: never substance use type: does not use Vital Signs Vital Signs Vital Signs: 05/20/23 14:00 05/20/23 21:48 05/20/23 21:49 Temperature 98.4 F Temperature Source Oral Pulse Rate 101 H Pulse Strength Normal (2+) Respiratory Rate 16 Respiratory Effort Normal Respiratory Depth Normal Respiratory Pattern Normal Blood Pressure 137/94 H Blood Pressure Mean 108 Blood Pressure Source Monitor Blood Pressure Position Semi-Fowlers Blood Pressure Location Right Forearm Pulse Ox 93 Oxygen Delivery Method Room Air Room Air 05/20/23 19:50 05/21/23 03:24 05/21/23 03:25 Temperature 97.8 F Temperature Source Axillary Pulse Rate 78 Pulse Strength Respiratory Rate 15 Respiratory Effort Normal Non-Labored Normal Non-Labored Respiratory Depth Normal Respiratory Pattern Normal Blood Pressure 133/83 H Blood Pressure Mean 99 Blood Pressure Source Monitor Blood Pressure Position Semi-Fowlers Blood Pressure Location Right Arm Pulse Ox 95 Oxygen Delivery Method Room Air Room Air Room Air 05/21/23 07:45 05/21/23 09:38 05/21/23 09:38 Temperature Temperature Source Pulse Rate Pulse Strength Normal (2+) Respiratory Rate Respiratory Effort Normal Non-Labored Respiratory Depth Normal Respiratory Pattern Normal Blood Pressure Blood Pressure Mean Blood Pressure Source Blood Pressure Position Blood Pressure Location Pulse Ox 93 Oxygen Delivery Method Room Air Room Air 05/21/23 09:48 05/21/23 09:25 Temperature 97.7 F L Temperature Source Temporal Pulse Rate 70 Pulse Strength Respiratory Rate 18 Respiratory Effort Respiratory Depth Respiratory Pattern Blood Pressure 114/79 Blood Pressure Mean 90 Blood Pressure Source Monitor Blood Pressure Position Semi-Fowlers Blood Pressure Location Right Arm Pulse Ox 93 93 Oxygen Delivery Method Room Air Weight Weight: 74.3 kg Body Mass Index (BMI) 21.4 EEG Results Procedure Details EEG Procedure Details: STUDY NAME: routine video EEG monitoring. ? INDICATIONS FOR STUDY: ?Kulwant Andrade is 82 yr old man at [facility] who is undergoing routine EEG for stroke like symptoms ? TECHNICAL DESCRIPTION: ?Video EEG monitoring was performed using 10/20 electrodeplacement system. ? EEG Description: Background rhythm is continuous, symmetric over both the hemispheres with predominant excess beta frequency admixed some alpha activity. No well defined PDR was seen. Voltage is symmetric with most of activity around 20 -40 ?V. Symmetric variability and reactivity was present. ? Stage II sleep transient were seen. ? INTERICTAL DISCHARGE: None. PERIODIC OR RHYTHMIC DISCHARGES: None. CLINICAL EVENTS: None. ? The ECG channel was unremarkable during the monitoring. ? Clinical Interpretation: ? This routine EEG recording is abnormal due to presence of excess fast activity which is likely the medication effect. No epileptogenic abnormalities were recorded. NIHSS NIHSS Nursing Documentation NIHSS Nursing Documentation: NIHSS: Ischemic Stroke/TIA Start: 05/20/23 12:36 Text: For PCU Patients: NIH and Neuro Check every 4 Status: Complete hours and PRN Freq: [id number] Protocol: Activity Type Activity Date Activity User E-sign Co-sign Detail Recorded Client Recorded Date Recorded By Document 05/20/23 13:29 AR Desktop 05/20/23 13:46 AR 05/20/23 13:29 NIH Stroke Scale [NIHSS] A score of 0 is normal or asymptomatic . Total possible score is 42. Inpatient: RN or Physician to activate a stroke alert for onset of new stroke symptoms or with NIHSS increase >/= 3 points. Following change in neurological status, NIHSS will be performed per physician order or more frequently PRN. -1a. Level of Consciousness Alert; keenly responsive -1b. LOC Questions Answers BOTH questions correctly. -1c. LOC Commands Performs both tasks correctly . -2. Best Gaze Normal -3. Visual No visual loss -4. Facial Palsy Normal symmetrical movements -5a. Left Arm No drift; arm holds 90 (or 45 ) degrees for full 10 seconds -5b. Right Arm No drift; arm holds 90 (or 45 ) degrees for full 10 seconds -6b. Right Leg No drift; leg holds 30-degree position for full 5 seconds -7. Limb Ataxia Absent -8. Sensory Normal; no sensory loss -9. Best Language Mild-to- moderate aphasia; -10. Dysarthria Mild-to- moderate dysarthria; -11. Extinction and Inattention No abnormality -Total 2 Query Text:A score of 0 is normal or asymptomatic. Total possible score is 42 . ED: Notify Physician for NIHSS increase by > / = 3 points. Inpatient: RN or Physician to activate a stroke alert for NIHSS increase of > / = 3 points. Coma Scale [Assess] -Eye Opening Spontaneous -Motor Obeys Commands -Verbal Oriented [Total] -Coma Scale Total 15 Physical Exam Narrative -? General: Laying comfortably in bed; in no acute distress. -? HENT: Normal oropharynx and mucosa. Normal external appearance of ears and nose. Exophthalmos. -? Neck: Supple, no pain or tenderness -? CV:? No peripheral edema. -? Pulmonary:? Normal respiratory effort. -? Ext: No cyanosis, edema, or deformity -? Skin: No rash. Normal palpation of skin.? -? Musculoskeletal: full range of motion; no joint tenderness. Normal digits and nails by inspection. No clubbing. -? NEURO: -? Mental Status: The patient was alert and oriented to time, place, and person. Normal recent/remote memory, concentration, and general fund of knowledge. -? Language: speech is clear.? Naming, repetition, fluency, and comprehension intact. -? Cranial Nerves: PERRL 3 mm/brisk. EOMI, visual mcmahon full, no facial asymmetry, facial sensation intact, hearing intact, tongue midline, no evidence of atrophy or fibrillations. No evidence of nystagmus or opsoclonus -? Motor: Detailed strength exam as performed by the nurse/BEBO and witnessed by the physician: R L SA 5 5 EE 5 5 EF 5 5 WE WF Vice President And Portfolio Manager 5 5- HF 5 5 KE 5 5 KF 5 5 DF 5 5 PF 5 5 -? Detailed reflex exam as performed by the nurse/BEBO and witnessed by the physician: R L Biceps Patellar 2 2 Ankle Babinski down up -? Tone: spasticity in the b/l UE - positional myolconus throughout but no inc with startle and none at rest. no evidence of tremor. No bradykinesia, -? Sensation- Intact to light touch bilaterally -? Coordination: No dysmetria on [id number], finger follow finger or [id number]. -? Gait- there is myoclonus with standing, did not walk patient Lab / Micro Data 05/20/23 08:28 05/21/23 04:50 Labs: Laboratory Results - last 24 hr 05/21/23 04:50: Sodium 145, Potassium 4.5, Chloride 113 H, Carbon Dioxide 25.0, Anion Gap 7, BUN 24 H, Creatinine 1.24, Estim Creat Clear Calc 49.93, Est GFR (MDRD) Af Amer 72, Est GFR (MDRD) Non-Af 60, BUN/Creatinine Ratio 19.4, Glucose 89, Calcium 8.0 L, Triglycerides 87, Cholesterol 78, LDL Cholesterol 19, VLDL Cholesterol 17, HDL Cholesterol 42 Imagaing Radiology Impression Brain MRI 05/20/23 12:36 IMPRESSION: 1. Involutional and chronic ischemic changes of the brain, as described above. Electronically Signed: Karthikeyan Thompson MD at 14:55 EST Reading Location ID and State: [facility] / [place] , Service support , Active Medications Active Medications Active Medications: Current Medications Generic Name Dose Route Start Last Admin Trade Name Freq PRN Reason Stop Dose Admin Acetaminophen 650 mg 05/20/23 12:36 05/20/23 21:45 Acetaminophen 325 Mg Tablet PO 650 mg Q6H PRN PRN Administration Pain 1-10 Or Fever>100.7 Amlodipine Besylate 2.5 mg 05/21/23 10:00 05/21/23 10:15 Amlodipine 2.5 Mg Tablet PO 2.5 mg DAILY VASILE Administration Protocol Aspirin 81 mg 05/21/23 08:00 05/21/23 10:14 Aspirin 81 Mg Tab.Chew PO 81 mg DAILYCM VASILE Administration Cholecalciferol 25 mcg 05/21/23 08:00 05/21/23 10:15 Cholecalciferol (Vit D3) 25 Mcg Tablet (1,000 Units) PO 25 mcg DAILYCM VASILE Administration Clopidogrel Bisulfate 75 mg 05/21/23 10:00 05/21/23 10:15 Clopidogrel Bisulfate 75 Mg Tablet PO 75 mg DAILY VASILE Administration Ezetimibe 10 mg 05/21/23 10:00 05/21/23 10:14 Ezetimibe 10 Mg Tablet PO 10 mg DAILY VASILE Administration Enoxaparin Sodium 40 mg 05/21/23 10:00 05/21/23 10:15 Enoxaparin 40 Mg/0.4 Ml Syringe SC 40 mg DAILY VASILE Administration Hydralazine HCl 5 mg 05/20/23 12:36 Hydralazine 20 Mg/Ml Vial IV Q30M PRN to maintain BP goals Sodium Chloride 250 mls @ 15 mls/hr 05/20/23 12:45 IV .[id number] PRN Additional IVPB Infusion Sodium Chloride 250 mls @ 15 mls/hr 05/20/23 12:45 IV .[id number] PRN Saline Flush Labetalol HCl 10 - 20 mg 05/20/23 12:36 Labetalol (Prefilled) 20 Mg/4 Ml IV Q10M PRN PRN to Maintain BP Goals Levothyroxine Sodium 88 mcg 05/21/23 06:00 05/21/23 05:00 Levothyroxine 88 Mcg Tablet PO 88 mcg DAILY@0600 VASILE Administration Metoprolol Tartrate 50 mg 05/21/23 22:00 Metoprolol Tartrate 50 Mg Tablet PO BID VASILE Protocol Pantoprazole Sodium 40 mg 05/21/23 10:00 05/21/23 10:15 Pantoprazole Sodium 40 Mg Tablet PO 40 mg DAILY VASILE Administration Sodium Chloride 10 - 40 ml 05/20/23 12:45 0.9% Saline Lock 10 Ml Syringe IV UD PRN SALINE FLUSH 05/21/23 1649 <Electronically signed by Deborah Drake MD> Cosigner Signature (if applicable): CC: Emely Purcell; Yany Siu; Sofia Noriega; Emre Crespo; Deborah Drake MD; Carol Sneed MD; Cong Salas MD; Yesi Olson MD; Dr. Ector Garcia MD; Dr. Jaxon Gupta MD; Dr. Nathalie Jeter MD; Dr. Bindu Vazquez MD; Dr. Ezequiel Portillo MD; Dr. Melvina Luis DO; Dr. Merari Alonso MD; Dr. Ralph Sánchez MD; Dr. Maximo Minor MD; Dr. Louis Carranza MD; Dr. Jose Hooks MD; Dr. Sheryl Ca MD; Joycelyn Rey MD; Kole Morales MD; Mabel Stewart DO; Jay Fatima MD; Ilene Parekh DO; Raffaele Bustillos MD~ Signed ADDENDUM by Deborah Drake MD on 05/22/23 at 1929 Assessment and Plan: Neuro Assessment/Plan KULWANT ANDRADE is a 82 M with a past medical history of chronic baclofen use, history of CKD vs BART (unclear which because pt denies history of kidney disease), being evaluated by Teleneurology for myoclonus. On history, symptoms started suddently per pt and has been gradually progressive. Will need corroborating evidence as well. Exam with clear UMN signs of spasticity and +babinski and diffuse movement initiated myoclonus. MRI Brain benign or acute process or cortical diffusion restriction. There is diffuse atrophy and white matter disease. Ddx includes autoimmune encephalitis (especially given recent RSV vaccine), medication withdrawal (given recent decline in baclofen), possible paraneoplastic etiology. Cannot rule out degenerative state but no clear signs for this Plan: - CT chest/abdomen/pelvis - provide 1x dose baclofen 10mg - send the following serum labs: KHANH, ESR, paraneoplastic panel, anti-MOG, autoimune encephalitis panel (sendout lab), [id number], HIV, RPR, lyme - send UDS - recommend LP tomorrow with the following labs: cell count, protein, glucose, cytology, flow cytometry, HSV, VSV, VDRL, [place] virus, lyme, enterovirus, listeria monocytogenies, gram stain, CSF autoimmune panel (sendout lab), RT-QuIC I personally attended this patient and spent a total time of 60 minutes evaluating this patient including clinical assessment, review of chart, medical history imaging, and determining appropriate treatment and workup. 05/22/231928<Electronically signed by Deborah Drake MD> Cosigner Signature (if applicable): cc: Emely Purcell; Yany Siu; Sofia Noriega; Emre Crespo; Deborah Drake MD; Carol Sneed MD; Cong Salas MD; Yesi Olson MD; Dr. Ector Garcia MD; Dr. Jaxon Gupta MD; Dr. Nathalie Jeter MD; Dr. Bindu Vazquez MD; Dr. Ezequiel Portillo MD; Dr. Melvina Luis DO; Dr. Merari Alonso MD; Dr. Ralph Sánchez MD; Dr. Maximo Minor MD; Dr. Louis Carranza MD; Dr. Jose Hooks MD; Dr. Sheryl Ca MD; Joycelyn Rey MD; Kole Morales MD; Mabel Stewart DO; Jay Fatima MD; Ilene Parekh DO; Raffaele Bustillos MD ~* Signed [facility] Work Phone: 1(322) 277-371512-22-2023 Consult note Author Deborah Drake [facility] May 22, 2023 7:27pm Note Date/Time May 22, 2023 7:27pm [facility] Medical Records Department [address] [place] [address] Consultation - Neurology 05/22/231923 MR#: [id number] Acct: [id number] Name: KULWANT ANDRADE Rep #:[id number] : 1940 82 From: Deborah Drake MD PCP: Dr. Jose Hooks MD Status:ADM I N Location: [place] [address] Assessment and Plan: Neuro Assessment/Plan Assessment/Plan KULWANT ANDRADE is a 82 M with a past medical history of chronic baclofen use, history of CKD vs BART (unclear which because pt denies history of kidney disease), being evaluated by Teleneurology for myoclonus. On history, symptoms started suddently per pt and has been gradually progressive. Will need corroborating evidence as well. Exam with clear UMN signs of spasticity and +babinski and diffuse movement initiated myoclonus. MRI Brain benign or acute process or cortical diffusion restriction. There is diffuse atrophy and white matter disease. Ddx includes autoimmune encephalitis (especially given recent RSV vaccine), medication withdrawal (given recent decline in baclofen), possible paraneoplastic etiology. Cannot rule out degenerative state but no clear signs for this. Unable to get LP as patient on Plavix and recently had cardiac stent, also needs to be on AC for PE. Improvement in symptoms, recommend klonopin 0.5mgBID. Unclear if this is truly baclofen withdrawal as pt states he definitely didnot take the medication but WOJCIECH-agonist is likely helping his symptoms Plan: - MRI Brain with contrast - klonopin 0.5mg BID - serum labs pending: KHANH, paraneoplastic panel, anti-MOG, autoimune encephalitis panel, [id number]. Please also send: HIV, RPR, lyme - ESR 25, CRP 75 suggesting some level of inflammation I personally attended this patient and spent a total time of 30 minutes evaluating this patient including clinical assessment, review of chart, medical history imaging, and determining appropriate treatment and workup. HPI Consult Data Date of Consult: 05/22/23 HPI Narrative HPI Narrative: 05/22 - myoclonus is improved but still present. Pt states definitely does not believe he took the baclofen from this last injection even though it was filled. 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 Bigeminy BPH (benign prostatic hyperplasia) CAD (coronary artery disease) Cardiomyopathy in other diseases classified elsewhere D-dimer, elevated DDD (degenerative disc disease) Dyspnea on exertion Edema Essential hypertension Fibromyalgia Hemorrhoid HTN (hypertension) Hyperlipidemia Hypothyroid Nasal sinus polyp Postoperative atrial fibrillation Premature atrial contractions Premature ventricular contraction Pulmonary nodule Syncope White coat syndrome with hypertension Home Medications aspirin 81 mg chewable tablet 81 mg PO DAILY HEART HEALTH 02/22/21 [History Last Taken 05/20/23] pantoprazole 40 mg tablet,delayed release 40 mg PO DAILY ACID REFUX 30 days #30 tabs 03/12/21 [Rx Last Taken 05/20/23] cholecalciferol (vitamin D3) 25 mcg (1,000 unit) capsule 25 mcg PO DAILY SUPPLEMENT 12/25/21 [History Last Taken 05/20/23] levothyroxine 75 mcg tablet 88 mcg PO DAILY@0600 THYROID 06/26/22 [History Last Taken 05/20/23] furosemide 20 mg tablet (Lasix) 20 mg PO DAILY PRN edema, sob, weight gain #60 tabs 11/18/22 [Rx Last Taken Unknown] amlodipine 2.5 mg tablet 2.5 mg PO DAILY BLOOD PRESSURE #60 tabs 01/05/23 [Rx Last Taken 05/20/23] clopidogrel 75 mg tablet 75 mg PO DAILY BLOOD THINNER #30 tabs 01/05/23 [Rx Last Taken 05/20/23] blood pressure monitor #1 ea 01/15/23 [Rx Last Taken Unknown] evolocumab 140 mg/mL subcutaneous pen injector (Repatha SureClick) 140 mg [id number] CHOLESTEROL #2 mL 01/15/23 [Rx Last Taken 05/13/23] ezetimibe 10 mg tablet (Zetia) 10 mg PO DAILY CHOLESTEROL #30 tabs 01/15/23 [Rx Last Taken 05/20/23] metoprolol tartrate 50 mg tablet 50 mg PO BID BLOOD PRESSURE #60 tabs 02/24/23 [Rx Last Taken 05/20/23] Allergy/AdvReac Type Severity Reaction Status Date / Time erythromycin base Allergy Hives Verified 05/20/23 09:04 amoxicillin [From Augmentin] AdvReac Severe Itching Verified 05/20/23 09:04 atorvastatin AdvReac Severe myalgias Verified 05/20/23 09:04 clavulanic acid AdvReac Severe Itching Verified 04/15/23 15:28 [From Augmentin] fenofibrate [From Tricor] AdvReac Severe myalgias Verified 05/20/23 09:04 levofloxacin [From Levaquin] AdvReac Unknown Unknown Verified 05/20/23 09:04 Family History Father CVA (cerebral vascular accident) Hypertension Heart disease Mother CAD (coronary artery disease) Brother Hypertension Brother CAD (coronary artery disease) Hypertension Sister Hypertension Sister Patent foramen ovale Sister Hypertension Lung cancer Other Dyspnea on exertion Surgical History H/O hemorrhoidectomy History of back surgery History of cholecystectomy History of coronary artery bypass graft x 3 (~02/26/21) History of kidney surgery History of placement of stent in LAD coronary artery (01/05/23) History of radiofrequency ablation procedure for cardiac arrhythmia (~10/2002) Hx of appendectomy Social History household members: none Smoking Status: Never smoker alcohol intake: never substance use type: does not use Vital Signs Vital Signs Vital Signs: 05/21/23 21:09 05/21/23 21:13 05/21/23 21:00 Temperature 99.8 F H Temperature Source Temporal Pulse Rate 100 100 Pulse Strength Respiratory Rate 16 Respiratory Effort Normal Non-Labored Respiratory Depth Normal Respiratory Pattern Normal Blood Pressure 126/78 H Blood Pressure Mean 94 Blood Pressure Source Monitor Blood Pressure Position Supine Blood Pressure Location Right Arm Pulse Ox 92 Oxygen Delivery Method Room Air Room Air 05/21/23 23:12 05/22/23 03:06 05/22/23 03:00 Temperature 99 F Temperature Source Temporal Pulse Rate 79 69 70 Pulse Strength Respiratory Rate 16 Respiratory Effort Respiratory Depth Respiratory Pattern Blood Pressure 118/74 Blood Pressure Mean 88 Blood Pressure Source Monitor Blood Pressure Position Semi-Fowlers Blood Pressure Location Right Arm Pulse Ox 93 Oxygen Delivery Method Room Air 05/22/23 03:00 05/22/23 07:21 05/22/23 07:21 Temperature Temperature Source Pulse Rate Pulse Strength Normal (2+) Respiratory Rate Respiratory Effort Normal Non-Labored Normal Non-Labored Respiratory Depth Normal Normal Respiratory Pattern Normal Normal Blood Pressure Blood Pressure Mean Blood Pressure Source Blood Pressure Position Blood Pressure Location Pulse Ox Oxygen Delivery Method Room Air Room Air 05/22/23 09:00 05/22/23 09:31 05/22/23 07:38 Temperature 97.9 F Temperature Source Temporal Pulse Rate 68 68 Pulse Strength Respiratory Rate 18 Respiratory Effort Respiratory Depth Respiratory Pattern Blood Pressure 101/81 H 101/81 H Blood Pressure Mean 87 Blood Pressure Source Monitor Blood Pressure Position Semi-Fowlers Blood Pressure Location Right Arm Pulse Ox 93 94 Oxygen Delivery Method Room Air Room Air 05/22/23 13:37 05/22/23 15:00 Temperature 97.4 F L Temperature Source Temporal Pulse Rate 58 L Pulse Strength Respiratory Rate 18 Respiratory Effort Normal Non-Labored Respiratory Depth Normal Respiratory Pattern Normal Blood Pressure 151/91 H Blood Pressure Mean 111 Blood Pressure Source Monitor Blood Pressure Position Semi-Fowlers Blood Pressure Location Right Arm Pulse Ox 94 Oxygen Delivery Method Room Air Room Air Weight Weight: 74.3 kg Body Mass Index (BMI) 21.4 NIHSS NIHSS Nursing Documentation NIHSS Nursing Documentation: NIHSS: Ischemic Stroke/TIA Start: 05/20/23 12:36 Text: For PCU Patients: NIH and Neuro Check every 4 Status: Complete hours and PRN Freq: [id number] Protocol: Activity Type Activity Date Activity User E-sign Co-sign Detail Recorded Client Recorded Date Recorded By Document 05/20/23 13:29 AR Desktop 05/20/23 13:46 AR 05/20/23 13:29 NIH Stroke Scale [NIHSS] A score of 0 is normal or asymptomatic . Total possible score is 42. Inpatient: RN or Physician to activate a stroke alert for onset of new stroke symptoms or with NIHSS increase >/= 3 points. Following change in neurological status, NIHSS will be performed per physician order or more frequently PRN. -1a. Level of Consciousness Alert; keenly responsive -1b. LOC Questions Answers BOTH questions correctly. -1c. LOC Commands Performs both tasks correctly . -2. Best Gaze Normal -3. Visual No visual loss -4. Facial Palsy Normal symmetrical movements -5a. Left Arm No drift; arm holds 90 (or 45 ) degrees for full 10 seconds -5b. Right Arm No drift; arm holds 90 (or 45 ) degrees for full 10 seconds -6b. Right Leg No drift; leg holds 30-degree position for full 5 seconds -7. Limb Ataxia Absent -8. Sensory Normal; no sensory loss -9. Best Language Mild-to- moderate aphasia; -10. Dysarthria Mild-to- moderate dysarthria; -11. Extinction and Inattention No abnormality -Total 2 Query Text:A score of 0 is normal or asymptomatic. Total possible score is 42 . ED: Notify Physician for NIHSS increase by > / = 3 points. Inpatient: RN or Physician to activate a stroke alert for NIHSS increase of > / = 3 points. Coma Scale [Assess] -Eye Opening Spontaneous -Motor Obeys Commands -Verbal Oriented [Total] -Coma Scale Total 15 Physical Exam Narrative -? General: Laying comfortably in bed; in no acute distress. -? HENT: Normal oropharynx and mucosa. Normal external appearance of ears and nose. Exophthalmos. -? Neck: Supple, no pain or tenderness -? CV:? No peripheral edema. -? Pulmonary:? Normal respiratory effort. -? Ext: No cyanosis, edema, or deformity -? Skin: No rash. Normal palpation of skin.? -? Musculoskeletal: full range of motion; no joint tenderness. Normal digits and nails by inspection. No clubbing. -? NEURO: -? Mental Status: The patient was alert and oriented to time, place, and person. Normal recent/remote memory, concentration, and general fund of knowledge. -? Language: speech is clear.? Naming, repetition, fluency, and comprehension intact. -? Cranial Nerves: PERRL 3 mm/brisk. EOMI, visual mcmahon full, no facial asymmetry, facial sensation intact, hearing intact, tongue midline, no evidence of atrophy or fibrillations. No evidence of nystagmus or opsoclonus - positional myolconus throughout but no inc with startle and none at rest. no evidence of tremor. No bradykinesia, Myoclonus us improved -? Gait- minimal myoclonus on standing Lab / Micro Data 05/20/23 08:28 05/21/23 04:50 Labs: Laboratory Results - last 24 hr 05/22/23 09:10: ESR 25 H, C-React Prot Ext Range 75.60 H Imagaing Radiology Impression Brain MRI 05/22/23 10:22 IMPRESSION: No evidence for enhancing intracranial mass. Electronically Signed: Sandra Huynh MD at 13:09 EST Reading Location ID and State: [facility] / [place] Tel , Service support , Active Medications Active Medications Active Medications: Current Medications Generic Name Dose Route Start Last Admin Trade Name Freq PRN Reason Stop Dose Admin Acetaminophen 650 mg 05/20/23 12:36 05/20/23 21:45 Acetaminophen 325 Mg Tablet PO 650 mg Q6H PRN PRN Administration Pain 1-10 Or Fever>100.7 Amlodipine Besylate 2.5 mg 05/21/23 10:00 05/22/23 09:31 Amlodipine 2.5 Mg Tablet PO 2.5 mg DAILY VASILE Administration Protocol Apixaban 10 mg 05/21/23 22:00 05/22/23 09:30 Apixaban 5 Mg Tablet PO 10 mg BID VASILE Administration Aspirin 81 mg 05/21/23 08:00 05/22/23 09:31 Aspirin 81 Mg Tab.Chew PO 81 mg DAILYCM VASILE Administration Cholecalciferol 25 mcg 05/21/23 08:00 05/22/23 09:31 Cholecalciferol (Vit D3) 25 Mcg Tablet (1,000 Units) PO 25 mcg DAILYCM VASILE Administration Clonazepam 0.5 mg 05/22/23 14:00 05/22/23 13:34 Clonazepam 0.5 Mg Tablet PO 0.5 mg Q8H VASILE Administration Clopidogrel Bisulfate 75 mg 05/21/23 10:00 05/22/23 09:31 Clopidogrel Bisulfate 75 Mg Tablet PO 75 mg DAILY VASILE Administration Ezetimibe 10 mg 05/21/23 10:00 05/22/23 09:31 Ezetimibe 10 Mg Tablet PO 10 mg DAILY VASILE Administration Hydralazine HCl 5 mg 05/20/23 12:36 Hydralazine 20 Mg/Ml Vial IV Q30M PRN to maintain BP goals Sodium Chloride 250 mls @ 15 mls/hr 05/20/23 12:45 IV .[id number] PRN Additional IVPB Infusion Sodium Chloride 250 mls @ 15 mls/hr 05/20/23 12:45 IV .[id number] PRN Saline Flush Labetalol HCl 10 - 20 mg 05/20/23 12:36 Labetalol (Prefilled) 20 Mg/4 Ml IV Q10M PRN PRN to Maintain BP Goals Levothyroxine Sodium 88 mcg 05/21/23 06:00 05/22/23 05:39 Levothyroxine 88 Mcg Tablet PO 88 mcg DAILY@0600 VASILE Administration Metoprolol Tartrate 50 mg 05/21/23 22:00 05/22/23 09:31 Metoprolol Tartrate 50 Mg Tablet PO 50 mg BID VASILE Administration Protocol Pantoprazole Sodium 40 mg 05/21/23 10:00 05/22/23 09:30 Pantoprazole Sodium 40 Mg Tablet PO 40 mg DAILY VASILE Administration Sodium Chloride 10 - 40 ml 05/20/23 12:45 0.9% Saline Lock 10 Ml Syringe IV UD PRN SALINE FLUSH 05/22/231926 <Electronically signed by Deborah Drake MD> Cosigner Signature (if applicable): CC: Emely Purcell; Yany Siu; Sofia Noriega; Emre Crespo; Deborah Drake MD; Carol Sneed MD; Cong Salas MD; Yesi Olson MD; Dr. Ector Garcia MD; Dr. Jaxon Gupta MD; Dr. Nathalie Jeter MD; Dr. Bindu Vazquez MD; Dr. Ezequiel Portillo MD; Dr. Melvina Luis DO; Dr. Merari Alonso MD; Dr. Ralph Sánchez MD; Dr. Maximo Minor MD; Dr. Louis Carranza MD; Dr. Jose Hooks MD; Dr. Sheryl Ca MD; Joycelyn Rey MD; Kole Morales MD; Mabel Stewart DO; Jay Fatima MD; Ilene Parekh DO; Raffaele Bustillos MD~ [facility] Work Phone: 1(759) 836-705712-22-2023 Progress note Author Lm [facility] May 22, 2023 3:44pm Note Date/Time May 22, 2023 9:00am [facility] Medical Records Department [address] [place] [id number] Progress Note - Hospitalist 05/22/23 0849 MR#: [id number] Acct: [id number] Name: KULWANT ANDRADE Rep #:[id number] : 1940 82 From: Lm Delaney DO PCP: Dr. Jose Hooks MD Status:ADM I N Location: [place] [address] Reason for Visit Reason for Visit: Diagnoses Dysarthria and anarthria (05/20/23) Subjective Subjective Still with myoclonus. Objective Data Objective Data Vital Signs: Vital Signs Temp Pulse Resp BP Pulse Ox O2 Del Method 37.2 C 69 16 118/74 93 Room Air 05/22/23 03:00 05/22/23 03:06 05/22/23 03:00 05/22/23 03:00 05/22/23 03:00 05/22/23 07:21 Oxygen Delivery Method Room Air Weight: 74.3 kg Body Mass Index (BMI) 21.4 Intake & Output: Intake and Output for Last 24 Hours 05/20/23 05/21/23 05/22/23 23:59 23:59 23:59 Intake Total 1000 / 1000 360 / 360 Output Total 250 / 250 Balance 1000 / 1000 110 / 110 Lab / Micro Data 05/20/23 08:28 05/21/23 04:50 Labs: Laboratory Results - last 24 hr 05/21/23 16:30: Urine Opiates Screen NEGATIVE, Urine Methadone Screen NEGATIVE, Ur Barbiturates Screen NEGATIVE, Ur Phencyclidine Scrn NEGATIVE, Ur AmphetaminesScreen NEGATIVE, MDMA (Ecstasy) Screen NEGATIVE, U Benzodiazepines Scrn NEGATIVE, Urine Cocaine Screen NEGATIVE, U Cannabinoids Screen NEGATIVE, Ur DrugScreen Comment Radiography Diagnostic Testing: Radiology Impression Echocardiogram 05/20/23 12:36 Interpretation Summary The estimated ejection fraction is 55-60 %. Normal LV systolic function Mild MR Grade 1 diastolic dysfunction No significant change in comparison to prior echocardiogram in October 2022 Ordering Physician: Lm Delaney Referring Physician: Jose Hooks Chi Performed By: Juan Sethi, JEAN CARLOS, RVT Chest/Abdomen/Pelvis CT 05/21/23 15:20 IMPRESSION: Subtle embolus with multiple bilateral pulmonary emboli as described with early signs of right-sided cardiac strain. Multifocal multilobar atelectasis with scarring, otherwise no acute cardiac pulmonary disease. Left-sided simple renal cysts with no further follow-up imaging recommended. Otherwise unremarkable abdominal viscera. Cannot exclude mild cystitis, correlation with urinalysis recommended. Mild nodular prostate enlargement. Electronically Signed: Lilian Marrero MD at 16:51 EST , ADDENDUM: 05/21/23 1708 IMPRESSION: Subtle embolus with multiple bilateral pulmonary emboli as described with early signs of right-sided cardiac strain. Multifocal multilobar atelectasis with scarring, otherwise no acute cardiac pulmonary disease. Left-sided simple renal cysts with no further follow-up imaging recommended. Otherwise unremarkable abdominal viscera. Cannot exclude mild cystitis, correlation with urinalysis recommended. Mild nodular prostate enlargement. N.B. : The above Results were Read Back by Lilian Marrero MD to Aurora Schultz RN, and understanding confirmed on 05/21/2023 17:01:54 (ET). Electronically Signed: Lilian Marrero MD at 16:51 EST , Physical Exam Const alert and no apparent distress Constitutional Narrative: Still with some myoclonus of the extremity throughout. Still with dysarthria but though speech is understandable. Assessment & Plan Assessment/Plan (1) Dysarthria: PLAN: Plan Dysarthria * With associated weakness. Patient has fasciculations of his tongue. Is unclear of the significance of this. Patient is already on aspirin and clopidogrel and will continue with those medications. * MRI brain showed involutional and chronic ischemic changes of the brain. No acute CVA. * Will check an EEG as patient did bite his tongue. Unclear if that was related with prior jaw fasciculations that he was having with this. * Other concerns could include other neurologic diseases such as Parkinson's, PSP, ALS etc. Seems unlikely as this was been in rapid onset and patient has not had any prior history of this in the past. No clear medications that would be contributing to this as well. No medications suggest tardive dyskinesia. Family reports patient may be taking CBD but the patient absolutely denies that nor any consumption of marijuana. * Speech therapy * TSH and ammonia level WNL. UDS negative. * EEG negative for seizure. * Neuro reevaluation recommending CT C/A/P, dose of baclofen, UDS, KHANH, ESR, anti-MOG, autoimmune encephalitis panel: [id number], HIV, RPR, Lyme. LP (will need to be held as he is on clopidogrel). Unfortunately unable to perform an LP as patient had PCI in January. PE: * incidental finding on CT. 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 * Echo showed an EF of 55-60%. No mention of right heart strain. * On apixaban. Weakness * Unclear etiology but likely tied into the dysarthria somehow. * PT OT evaluate and treat Chronic conditions: * Hypertension: Hold off on metoprolol and amlodipine until the . * Hypothyroidism: Continue with levothyroxine VTE prophylaxis: Subcu heparin. CODE STATUS: Addressed with the patient. Patient was to be full code. Greater than 55 minutes of which greater than 50% of time was spent at baseline discussing with the patient about his workup but also discussing with Dr. Drake who videoconference and during the encounter. Charges/Coding Visit Charges Inpatient E&M: 35550 [facility] Hosp 05/22/23 1544 <Electronically signed by Lm Delaney DO> Cosigner Signature (if applicable): CC: ~ Signed [facility] Work Phone: 1(796) 166-960212-21-2023 Progress note Author Lm [facility] May 21, 2023 1:34pm Note Date/Time May 21, 2023 8:53am [facility] Medical Records Department [address] [place] [id number] Progress Note - Hospitalist 05/21/23 0850 MR#: [id number] Acct: [id number] Name: KULWANT ANDRADE Rep #:[id number] : 1940 82 From: Lm Delaney DO PCP: Dr. Jose Hooks MD Status:ADM I N Location: [place] [address] Reason for Visit Reason for Visit: Diagnoses Dysarthria and anarthria (05/20/23) Subjective Subjective Daughter informed nursing that patient may be taking CBD Gummies. Addressed with the patient and he absolutely denies any CBD or marijuana consumption in any form. States that he is speaking somewhat better but still having myoclonus. Objective Data Objective Data Vital Signs: Vital Signs Temp Pulse Resp BP Pulse Ox O2 Del Method 36.6 C 78 15 133/83 H 95 Room Air 05/21/23 03:24 05/21/23 03:24 05/21/23 03:24 05/21/23 03:24 05/21/23 03:24 05/21/23 03:25 Oxygen Delivery Method Room Air Weight: 74.3 kg Body Mass Index (BMI) 21.4 Intake & Output: Intake and Output for Last 24 Hours 05/19/23 05/20/23 05/21/23 23:59 23:59 23:59 Intake Total 1000 / 1000 Balance 1000 / 1000 Lab / Micro Data 05/20/23 08:28 05/21/23 04:50 Labs: Laboratory Results - last 24 hr 05/20/23 08:28: WBC 9.1, RBC 4.86, Hgb 15.2, Hct 46.3, MCV 95.3 H, MCH 31.3, MCHC 32.8, RDW Std Deviation 44.9 H, RDW Coeff of Sukumar 12.8, Plt Count 265, MPV 9.3, Immature Gran % (Auto) 0.600, Neut % (Auto) 79.6 H, Lymph % (Auto) 9.3 L, [place] % (Auto) 8.9, Eos % (Auto) 1.0, Baso % (Auto) 0.6, Absolute Neuts (auto) 7.2, Absolute Lymphs (auto) 0.84, Nucleated RBC % 0, PT 13.6, INR 1.0, APTT 29.4, Sodium 139, Potassium 3.9, Chloride 109 H, Carbon Dioxide 22.0, Anion Gap 8, BUN 23 H, Creatinine 1.59 H, Estim Creat Clear Calc 38.26, Est GFR (MDRD) Af Amer 54 L, Est GFR (MDRD) Non-Af 45 L, BUN/Creatinine Ratio 14.5, Glucose 139 H,Calcium 9.0, Troponin I High Sens 6, TSH 0.42 05/20/23 10:50: Urine Color Yellow, Urine Clarity Clear, Urine pH 7.0, Ur Specific [place] 1.010, Urine Protein 15 H, Urine Glucose (UA) Normal, Urine Ketones Negative, Urine Occult Blood 25 H, Urine Nitrite Negative, Urine Bilirubin Negative, Urine Urobilinogen 1 H, Ur Leukocyte Esterase Negative, Urine RBC 0-5 SEEN, Urine WBC 0 SEEN, Ur Squamous Epith Cells 0 SEEN, Urine Bacteria 0SEEN, Urine Mucus 0 SEEN 05/20/23 12:47: Ammonia < 10.0 L 05/21/23 04:50: Sodium 145, Potassium 4.5, Chloride 113 H, Carbon Dioxide 25.0, Anion Gap 7, BUN 24 H, Creatinine 1.24, Estim Creat Clear Calc 49.93, Est GFR (MDRD) Af Amer 72, Est GFR (MDRD) Non-Af 60, BUN/Creatinine Ratio 19.4, Glucose 89, Calcium 8.0 L, Triglycerides 87, Cholesterol 78, LDL Cholesterol 19, VLDL Cholesterol 17, HDL Cholesterol 42 Radiography Diagnostic Testing: Radiology Impression Brain CT 05/20/23 08:42 IMPRESSION: Chronic involutional changes of the brain. N.B. : The above Results were Read Back by Charanjit Smith MD to Rl Cadena and understanding confirmed on 05/20/2023 09:01:17 (ET). Electronically Signed: Charanjit Smith MD at 9:03 EST , ADDENDUM: 05/20/23 0910 IMPRESSION: Chronic involutional changes of the brain. N.B. : The above Results were Read Back by Charanjit Smith MD to Rl Cadena and understanding confirmed on 05/20/2023 09:01:17 (ET). Electronically Signed: Charanjit Smith MD at 9:03 EST Reading Location ID and State: [id number] / [place] , Service support , Head/Neck CTA 05/20/23 08:42 IMPRESSION: Atherosclerotic calcific plaques at the origin of the left internal carotid artery causing between 50 and 69% stenosis. Mild calcific plaque at the origin of the right internal carotid artery causing less than 50% stenosis. Electronically Signed: Charanjit Smith MD at 9:08 EST Reading Location ID and State: [id number] / [place] , Service support , ADDENDUM: 05/20/23 0916 IMPRESSION: Atherosclerotic calcific plaques at the origin of the left internal carotid artery causing between 50 and 69% stenosis. Mild calcific plaque at the origin of the right internal carotid artery causing less than 50% stenosis. N.B. : The above Results were Read Back by Charanjit Smith MD to Dr Surinder DO, and understanding confirmed on 05/20/2023 09:09:48 (ET). Electronically Signed: Charanjit Smith MD at 9:08 EST , Chest X-Ray 05/20/23 09:28 IMPRESSION: Increased markings at the right lung base suggestive of atelectasis and/or early infiltrate superimposed on scarring. Electronically Signed: Charanjit Smith MD at 10:05 EST , Brain MRI 05/20/23 12:36 IMPRESSION: 1. Involutional and chronic ischemic changes of the brain, as described above. Electronically Signed: Karthikeyan Thompson MD at 14:55 EST , Physical Exam Const alert and no apparent distress HEENT HEENT Narrative: Myoclonic jerking of the jaw. No obvious tongue fasciculations at this time. Neuro Neuro Narrative: Myoclonic jerking of the upper and lower extremities. Sensorium / Orientation: awake and alert Assessment & Plan Assessment/Plan (1) Dysarthria: PLAN: Plan Dysarthria * With associated weakness. Patient has fasciculations of his tongue. Is un clear of the significance of this. Patient is already on aspirin and clopidogrel and will continue with those medications. * MRI brain showed involutional and chronic ischemic changes of the brain. No acute CVA. * Will check an EEG as patient did bite his tongue. Unclear if that was related with prior jaw fasciculations that he was having with this. * Other concerns could include other neurologic diseases such as Parkinson's, PSP, ALS etc. Seems unlikely as this was been in rapid onset and patient has not had any prior history of this in the past. No clear medications that would be contributing to this as well. No medications suggest tardive dyskinesia. Family reports patient may be taking CBD but the patient absolutely denies that nor any consumption of marijuana. * Speech therapy * TSH and ammonia level WNL * Neuro reevaluation pending. Weakness * Unclear etiology but likely tied into the dysarthria somehow. * PT OT evaluate and treat Chronic conditions: * Hypertension: Hold off on metoprolol and amlodipine until the . * Hypothyroidism: Continue with levothyroxine VTE prophylaxis: Subcu heparin. CODE STATUS: Addressed with the patient. Patient was to be full code. Charges/Coding Visit Charges Inpatient E&M: 03731 Subs Hosp L2 05/21/23 1334 <Electronically signed by Lm Delaney DO> Cosigner Signature (if applicable): CC: ~ Signed [facility] Work Phone: 1(315) 225-238012-20-2023 Discharge summary Author Rl [facility] May 20, 2023 3:25pm Note Date/Time May 20, 2023 9:07am [facility] Medical Records Department [address] [place] [id number] Emergency Department Summary 05/20/23 MR#: [id number] Acct: [id number] Name: KULWANT ANDRADE Rep #:[id number] : 1940 82 From: Rl Scott PCP: Dr. Jose Hooks MD Status:ADM I N Location: [place] [address] HPI History of Present Illness Chief Complaint: Stroke Alert Informant: patient, family and EMS Narrative Narrative: 82-year-old male presenting to the emergency room with a chief complaint of strokelike symptoms. Reportedly last seen well last evening at 1900 hrs. by hisdaughter who brought him food. Patient states that he has been twitching and shaking intermittently and has bruised his tongue. Daughter noticed difficulty speaking today. Patient has history of coronary artery disease and atrial fibrillation. He had a stent to his LAD in January 05, 2023. Patient denies any change in vision arm or leg symptoms. He is not on a blood thinner other than aspirin. [facility] Medical History Acid reflux Atherosclerotic heart disease of hughes coronary artery without angina pectoris 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 Bigeminy BPH (benign prostatic hyperplasia) CAD (coronary artery disease) Cardiomyopathy in other diseases classified elsewhere D-dimer, elevated DDD (degenerative disc disease) Dyspnea on exertion Edema Essential hypertension Fibromyalgia Hemorrhoid HTN (hypertension) Hyperlipidemia Hypothyroid Nasal sinus polyp Postoperative atrial fibrillation Premature atrial contractions Premature ventricular contraction Pulmonary nodule Syncope White coat syndrome with hypertension Home Medications aspirin 81 mg chewable tablet 81 mg PO DAILY [facility] 02/22/21 [History Last Taken 05/20/23] pantoprazole 40 mg tablet,delayed release 40 mg PO DAILY reflux 30 days #30 tabs1 [Rx Last Taken 05/20/23] cholecalciferol (vitamin D3) 25 mcg (1,000 unit) capsule 25 mcg PO DAILY [id number]/27/22 [History Last Taken 05/20/23] levothyroxine 75 mcg tablet 88 mcg PO DAILY@0600 thyroid 06/26/22 [History Last Taken 05/20/23] furosemide 20 mg tablet (Lasix) 20 mg PO DAILY PRN edema, sob, weight gain #60 tabs 11/18/22 [Rx Last Taken Unknown] amlodipine 2.5 mg tablet 2.5 mg PO DAILY #60 tabs 01/05/23 [Rx Last Taken 05/20/23] clopidogrel 75 mg tablet 75 mg PO DAILY #30 tabs 01/05/23 [Rx Last Taken 05/20/23] blood pressure monitor #1 ea 01/15/23 [Rx Last Taken Unknown] evolocumab 140 mg/mL subcutaneous pen injector (Repatha SureClick) 140 mg [id number] cholesterol #2 mL 01/15/23 [Rx Last Taken 05/13/23] ezetimibe 10 mg tablet (Zetia) 10 mg PO DAILY #30 tabs 01/15/23 [Rx Last Taken 05/20/23] metoprolol tartrate 50 mg tablet 50 mg PO BID blood pressure #60 tabs 02/24/23 [Rx Last Taken 05/20/23] Allergy/AdvReac Type Severity Reaction Status Date / Time erythromycin base Allergy Hives Verified 05/20/23 09:04 amoxicillin [From Augmentin] AdvReac Severe Itching Verified 05/20/23 09:04 atorvastatin AdvReac Severe myalgias Verified 05/20/23 09:04 clavulanic acid AdvReac Severe Itching Verified 04/15/23 15:28 [From Augmentin] fenofibrate [From Tricor] AdvReac Severe myalgias Verified 05/20/23 09:04 levofloxacin [From Levaquin] AdvReac Unknown Unknown Verified 05/20/23 09:04 Family History Father CVA (cerebral vascular accident) Hypertension Heart disease Mother CAD (coronary artery disease) Brother Hypertension Brother CAD (coronary artery disease) Hypertension Sister Hypertension Sister Patent foramen ovale Sister Hypertension Lung cancer Other Dyspnea on exertion Surgical History H/O hemorrhoidectomy History of back surgery History of cholecystectomy History of coronary artery bypass graft x 3 (~02/26/21) History of kidney surgery History of placement of stent in LAD coronary artery (01/05/23) History of radiofrequency ablation procedure for cardiac arrhythmia (~10/2002) Hx of appendectomy Social History household members: none Smoking Status: Never smoker alcohol intake: never substance use type: does not use ROS ROS ED Constitutional Constitutional ED: Denies chills, fever(s) or weight loss Eyes Eyes: Denies change in vision or diplopia ENT ENT ED: Denies ear pain, rhinorrhea or sore throat Cardiovascular Cardiovascular: Denies chest pain, orthopnea, palpitations or racing heartbeat Respiratory/Chest Respiratory/Chest: Denies cough, dyspnea or orthopnea Gastrointestinal Gastrointestinal: Denies abdominal pain, diarrhea, nausea or vomiting Genitourinary Genitourinary ED: Denies dysuria, hematuria or urinary frequency Musculoskeletal Musculoskeletal: Denies arthralgias or myalgias Integumentary Denies abscess or rash Neurologic Neurologic: Reports other Details: Shaking Difficulty speaking ; Denies headache(s), paresthesias or weakness Psychiatric Psychiatric: Denies anxiety, depression, suicidal ideation or suicidal thoughts Endocrine Endocrinology: Denies polydipsia, polyphagia or polyuria Allergic/Immunologic Allergic/Immunologic ED: Denies mouth swelling, tongue swelling or urticaria EXAM Physical Exam Const Vital Signs: 05/20/23 08:41 05/20/23 08:42 05/20/23 08:42 Temperature 97.9 F 97.9 F 97.9 F Temperature Source Temporal Temporal Temporal Pulse Rate 77 77 77 Respiratory Rate 18 18 18 Blood Pressure 146/98 H 146/98 H 146/98 H Blood Pressure Mean 114 114 114 Pulse Ox 96 96 96 Oxygen Delivery Method Room Air Room Air Room Air 05/20/23 09:12 Temperature Temperature Source Pulse Rate 75 Respiratory Rate 16 Blood Pressure 122/81 H Blood Pressure Mean 94 Pulse Ox 94 Oxygen Delivery Method Room Air Positive well nourished and well developed General Appearance ED: well developed HEENT Reports normocephalic, head/scalp atraumatic and moist mucous membranes HEENT Narrative: there are small contusion like areas on the side of the tongue's. Patient states is because at times he cannot stop himself from shaking. Eyes PERRL and EOMs intact bilaterally Neck no lymphadenopathy, supple and no JVD Resp normal respiratory effort and clear to auscultation bilaterally Cardio regular rate, regular rhythm and no murmurs GI normal to inspection, nondistended, normoactive bowel sounds and non-tender Palpation: soft Back/Spine no CVA tenderness and normal ROM Extremity normal to inspection General Extremety ED: Negative for edema General Extremity: Negative for edema Neuro oriented x3 and CN's II-XII intact bilaterally Neuro Narrative: Dysarthria noted Vick Coma Scale: document GCS findings Spontaneous Obeys Commands Oriented 15 Sensorium / Orientation: alert Speech: Negative for speech normal Sensory Exam: No sensory level loss detected Motor Exam: strength 5/5 throughout Psych mental status grossly normal Mood & Affect: Negative for depressed or tearful Skin no rashes or lesions noted and no wounds NIHSS NIHSS Initial: 1a Level of Consciousness: 0 1b LOC Questions (Score 2 if aphasic/stupor): 0 1c LOC Commands (Only score 1st attempt): 0 2 Best Gaze (If aphasic, use reflexive mvmts.): 0 3 Visual: 0 4 Facial Palsy: 0 5 Motor Arm Right (UN = amputation/fusion): 0 5 Motor Arm Left: 0 6 Motor Leg Right: 0 6 Motor Leg Left: 0 7 Limb ataxia (Only + if out of proportion): 0 8 Sensory (Aphasia/stupor=0 or 1, coma=2): 0 9 Best Language: 0 10 Dysarthria (mute, coma=2, intubated=UN): 1 11 Extinction and Inattention (only scored if +): 0 Total Score: 1 MDM MDM MDM Narrative Medical decision making narrative: Prehospital stroke team was called. Patient was seen and examined in the ambulance bay area. He was taken directly to CT scan where a CT of the brain and CTA of head and neck was performed. The patient was then brought back into the ED room where he was assessed by [facility] teleneu[facility]. Obviously he is out of the window for tPA and I do not see any large vessel occlusion. My independent interpretation of the chest x-ray is Increased markings right base. I see that on his last chest x-ray in October had similar markings.. Troponin 6. Creatinine 1.59. White count 9.1. EKG is a sinus rhythm. Patient has been unable to provide a urine specimen yet. I will speak with the hospitalist regarding admission for further workup. I have not seen any seizure-like activity. I am not seeing any infectious signs at this point. History & Record Review Discussion w/independent historian: EMS personnel, Patient and Family Additional record(s) reviewed:: Prior inpatient record, Prior outpatient record,Prior ED visit and Prior labs Lab Data Attestation: I reviewed the patient's lab results. Labs: Laboratory Results - last 24 hr 05/20/23 08:28 WBC 9.1 RBC 4.86 Hgb 15.2 Hct 46.3 MCV 95.3 H MCH 31.3 MCHC 32.8 RDW Std Deviation 44.9 H RDW Coeff of Sukumar 12.8 Plt Count 265 MPV 9.3 Immature Gran % (Auto) 0.600 Neut % (Auto) 79.6 H Lymph % (Auto) 9.3 L [place] % (Auto) 8.9 Eos % (Auto) 1.0 Baso % (Auto) 0.6 Absolute Neuts (auto) 7.2 Absolute Lymphs (auto) 0.84 Nucleated RBC % 0 PT 13.6 INR 1.0 APTT 29.4 Sodium 139 Potassium 3.9 Chloride 109 H Carbon Dioxide 22.0 Anion Gap 8 BUN 23 H Creatinine 1.59 H Estim Creat Clear Calc 38.26 Est GFR (MDRD) Af Amer 54 L Est GFR (MDRD) Non-Af 45 L BUN/Creatinine Ratio 14.5 Glucose 139 H Calcium 9.0 Troponin I High Sens 6 Radiography Diagnostic Testing: Clinical Impression(s) from Imaging Studies Brain CT 05/20/23 08:42 IMPRESSION: Chronic involutional changes of the brain. N.B. : The above Results were Read Back by Charanjit Smith MD to Rl Cadena and understanding confirmed on 05/20/2023 09:01:17 (ET). Electronically Signed: Charanjit Smith MD at 9:03 EST Reading Location ID and State: [id number] / Refurrl , Service support , ADDENDUM: 05/20/23 0910 IMPRESSION: Chronic involutional changes of the brain. N.B. : The above Results were Read Back by Charanjit Smith MD to Rl Cadena and understanding confirmed on 05/20/2023 09:01:17 (ET). Electronically Signed: Charanjit Smith MD at 9:03 EST Reading Location ID and State: [id number] / Refurrl , Service support , Head/Neck CTA 05/20/23 08:42 IMPRESSION: Atherosclerotic calcific plaques at the origin of the left internal carotid artery causing between 50 and 69% stenosis. Mild calcific plaque at the origin of the right internal carotid artery causing less than 50% stenosis. Electronically Signed: Charanjit Smith MD at 9:08 EST Reading Location ID and State: [id number] / Refurrl , Service support , ADDENDUM: 05/20/23 0916 IMPRESSION: Atherosclerotic calcific plaques at the origin of the left internal carotid artery causing between 50 and 69% stenosis. Mild calcific plaque at the origin of the right internal carotid artery causing less than 50% stenosis. N.B. : The above Results were Read Back by Charanjit Smith MD to Dr Surinder DO, and understanding confirmed on 05/20/2023 09:09:48 (ET). Electronically Signed: Charanjit Smith MD at 9:08 EST , Chest X-Ray 05/20/23 09:28 IMPRESSION: Increased markings at the right lung base suggestive of atelectasis and/or early infiltrate superimposed on scarring. Electronically Signed: Charanjit Smith MD at 10:05 EST , EKG Initial EKG: Attestation: I personally reviewed and interpreted this EKG as follows: Comments: Sinus rhythm with a first-degree AV block and a ventricular rateof 72 bpm Management Discussion w/another healthcare provider: Hospitalist Discharge Plan Triage Chief Complaint: Stroke Alert ED Provider: Rl Cadena Dx/Rx/DC Orders Prescriptions: No Action cholecalciferol (vitamin D3) 25 mcg (1,000 unit) capsule 25 mcg PO DAILY levothyroxine 75 mcg tablet 88 mcg PO DAILY@0600 ezetimibe [Zetia] 10 mg tablet 10 mg PO DAILY Qty: 30 6RF Repatha SureClick 140 mg/mL pen injector 140 mg subcut Q2W Qty: 2 11RF (DME) blood pressure monitor Kit See Rx Instructions .Route Qty: 1 0RF Rx Instructions: As directed metoprolol tartrate 50 mg tablet 50 mg PO BID Qty: 60 11RF aspirin 81 mg Tablet,Chewable 81 mg PO DAILY pantoprazole 40 mg Tablet,Delayed Release (Dr/Ec) 40 mg PO DAILY 30 Days Qty: 30 0RF amlodipine 2.5 mg Tablet 2.5 mg PO DAILY Qty: 60 6RF clopidogrel 75 mg Tablet 75 mg PO DAILY Qty: 30 11RF furosemide [Lasix] 20 mg tablet 20 mg PO DAILY PRN (Reason: edema, sob, weight gain) Qty: 60 11RF Hold Instructions: Order Changed Primary Care Provider: Jose Hooks Chi Referrals: Jose Hooks Chi, MD [Primary Care Provider] - What to do if you have Problems For any increased pain, shortness of breath, bleeding, nausea or vomiting, chestpain, or any unexpected problems, contact your Primary Care Provider. Call [facility] ([phone]) or report to the closest Emergency Room. Call 911 if necessary. 05/20/23 9295 <Electronically signed by Rl Cadena DO> Cosigner Signature (if applicable): CC: Dr. Jose Hooks MD ~ Signed [facility] Work Phone: 1(210) 830-509012-20-2023 History and physical note Author Lm Delaney [facility] May 20, 2023 12:30pm Note Date/Time May 20, 2023 12:30pm [facility] Medical Records Department [address] [place] [id number] H&P Exam - Hospitalist 05/20/23 1221 MR#: [id number] Acct: [id number] Name: KULWANT ANDRADE Rep #:[id number] : 1940 82 From: Lm Delaney DO PCP: Dr. Jose Hooks MD Status:ADM I N [facility] - General General Date of Admission: 05/20/23 Date of Service: 05/20/23 Chief Complaint: dysarthria. weakness. HPI Narrative KULWANT ANDRADE, is a 82 M who presents with dysarthria and weakness. Normally, the patient is very independent and speaks coherently. Patient beginning last night started having dysarthria as well as weakness. Patient was having an issue holding onto objects and dropping and was having shaking trying to hold and manipulates objects. Patient also with weakness in his legs. Had been feeling fine as of last night prior to this beginning. Patient denies any recent illness though he did have RSV about 3 weeks ago. He denies any new medications, denies any diphenhydramine, allergy medications, cold medications, antidepressants. So he presented to the emergency room and underwent neurologicworkup with CT of the head and CTA of the head and neck were unremarkable any acute process. There is ongoing symptoms, the hospital service was contacted and patient being hospitalized. 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 Bigeminy BPH (benign prostatic hyperplasia) CAD (coronary artery disease) Cardiomyopathy in other diseases classified elsewhere D-dimer, elevated DDD (degenerative disc disease) Dyspnea on exertion Edema Essential hypertension Fibromyalgia Hemorrhoid HTN (hypertension) Hyperlipidemia Hypothyroid Nasal sinus polyp Postoperative atrial fibrillation Premature atrial contractions Premature ventricular contraction Pulmonary nodule Syncope White coat syndrome with hypertension Home Medications aspirin 81 mg chewable tablet 81 mg PO DAILY HEART HEALTH 02/22/21 [History Last Taken 05/20/23] pantoprazole 40 mg tablet,delayed release 40 mg PO DAILY ACID REFUX 30 days #30 tabs 03/12/21 [Rx Last Taken 05/20/23] cholecalciferol (vitamin D3) 25 mcg (1,000 unit) capsule 25 mcg PO DAILY SUPPLEMENT 12/25/21 [History Last Taken 05/20/23] levothyroxine 75 mcg tablet 88 mcg PO DAILY@0600 THYROID 06/26/22 [History Last Taken 05/20/23] furosemide 20 mg tablet (Lasix) 20 mg PO DAILY PRN edema, sob, weight gain #60 tabs 11/18/22 [Rx Last Taken Unknown] amlodipine 2.5 mg tablet 2.5 mg PO DAILY BLOOD PRESSURE #60 tabs 01/05/23 [Rx Last Taken 05/20/23] clopidogrel 75 mg tablet 75 mg PO DAILY BLOOD THINNER #30 tabs 01/05/23 [Rx Last Taken 05/20/23] blood pressure monitor #1 ea 01/15/23 [Rx Last Taken Unknown] evolocumab 140 mg/mL subcutaneous pen injector (Repatha SureClick) 140 mg [id number] CHOLESTEROL #2 mL 01/15/23 [Rx Last Taken 05/13/23] ezetimibe 10 mg tablet (Zetia) 10 mg PO DAILY CHOLESTEROL #30 tabs 01/15/23 [Rx Last Taken 05/20/23] metoprolol tartrate 50 mg tablet 50 mg PO BID BLOOD PRESSURE #60 tabs 02/24/23 [Rx Last Taken 05/20/23] Allergy/AdvReac Type Severity Reaction Status Date / Time erythromycin base Allergy Hives Verified 05/20/23 09:04 amoxicillin [From Augmentin] AdvReac Severe Itching Verified 05/20/23 09:04 atorvastatin AdvReac Severe myalgias Verified 05/20/23 09:04 clavulanic acid AdvReac Severe Itching Verified 04/15/23 15:28 [From Augmentin] fenofibrate [From Tricor] AdvReac Severe myalgias Verified 05/20/23 09:04 levofloxacin [From Levaquin] AdvReac Unknown Unknown Verified 05/20/23 09:04 Family History Father CVA (cerebral vascular accident) Hypertension Heart disease Mother CAD (coronary artery disease) Brother Hypertension Brother CAD (coronary artery disease) Hypertension Sister Hypertension Sister Patent foramen ovale Sister Hypertension Lung cancer Other Dyspnea on exertion Surgical History H/O hemorrhoidectomy History of back surgery History of cholecystectomy History of coronary artery bypass graft x 3 (~02/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 Vital Signs Vital Signs Vital Signs: 05/20/23 08:41 05/20/23 08:42 05/20/23 08:42 Temperature 36.6 C 36.6 C 36.6 C Temperature Source Temporal Temporal Temporal Pulse Rate 77 77 77 Respiratory Rate 18 18 18 Blood Pressure 146/98 H 146/98 H 146/98 H Blood Pressure Mean 114 114 114 Pulse Ox 96 96 96 Oxygen Delivery Method Room Air Room Air Room Air 05/20/23 09:12 05/20/23 09:30 05/20/23 10:00 Temperature Temperature Source Pulse Rate 75 73 76 Respiratory Rate 16 18 18 Blood Pressure 122/81 H 142/87 H 126/82 H Blood Pressure Mean 94 105 96 Pulse Ox 94 94 94 Oxygen Delivery Method Room Air Room Air Room Air 05/20/23 10:30 05/20/23 11:00 05/20/23 11:30 Temperature 36.7 C 36.7 C Temperature Source Temporal Temporal Pulse Rate 78 80 79 Respiratory Rate 16 18 16 Blood Pressure 134/83 H 137/91 H 142/91 H Blood Pressure Mean 100 106 108 Pulse Ox 94 95 95 Oxygen Delivery Method Room Air Room Air Room Air 05/20/23 12:00 05/20/23 12:00 Temperature 36.7 C 36.7 C Temperature Source Temporal Pulse Rate 82 82 Respiratory Rate 16 16 Blood Pressure 144/84 H 144/84 H Blood Pressure Mean 104 104 Pulse Ox 94 94 Oxygen Delivery Method Room Air Weight Weight: 78.5 kg Body Mass Index (BMI) 24.8 Physical Exam Const alert and no apparent distress HEENT normocephalic and head/scalp atraumatic HEENT Narrative: Noted tongue bruising as well as tongue fasciculations. Eyes PERRL and EOMs intact bilaterally Eyes Narrative: Intact vertical saccades. She impaired lateral eye movement to the right that was slowed but was present. Neck no lymphadenopathy Neck Narrative: No thyromegaly Resp normal respiratory effort, no retractions, no use of accessory muscles and clearto auscultation bilaterally Cardio regular rate, regular rhythm, S1 normal heart sound and S2 normal heart sound GI normal to inspection, nondistended, normoactive bowel sounds, soft to palpation,non-tender and non-distended Extremity normal to inspection and full ROM Skin Skin Narrative: No rashes or lesions Neuro oriented x3, CN's II-XII intact bilaterally and moves all extremities Neuro Narrative: Noted dysarthria but coherent. Muscle strength is 4-5 in upper and lower extremities. Would giveaway but is able to raise it back up on his own. Sensorium / Orientation: awake and alert Psych affect normal Results Lab / Micro Data Attestation: I reviewed the patient's lab results. 05/20/23 08:28 05/20/23 08:28 Labs: Laboratory Results - last 24 hr 05/20/23 08:28: WBC 9.1, RBC 4.86, Hgb 15.2, Hct 46.3, MCV 95.3 H, MCH 31.3, MCHC 32.8, RDW Std Deviation 44.9 H, RDW Coeff of Sukumar 12.8, Plt Count 265, MPV 9.3, Immature Gran % (Auto) 0.600, Neut % (Auto) 79.6 H, Lymph % (Auto) 9.3 L, [place] % (Auto) 8.9, Eos % (Auto) 1.0, Baso % (Auto) 0.6, Absolute Neuts (auto) 7.2, Absolute Lymphs (auto) 0.84, Nucleated RBC % 0, PT 13.6, INR 1.0, APTT 29.4, Sodium 139, Potassium 3.9, Chloride 109 H, Carbon Dioxide 22.0, Anion Gap 8, BUN 23 H, Creatinine 1.59 H, Estim Creat Clear Calc 38.26, Est GFR (MDRD) Af Amer 54 L, Est GFR (MDRD) Non-Af 45 L, BUN/Creatinine Ratio 14.5, Glucose 139 H,Calcium 9.0, Troponin I High Sens 6 05/20/23 10:50: Urine Color Yellow, Urine Clarity Clear, Urine pH 7.0, Ur Specific [place] 1.010, Urine Protein 15 H, Urine Glucose (UA) Normal, Urine Ketones Negative, Urine Occult Blood 25 H, Urine Nitrite Negative, Urine Bilirubin Negative, Urine Urobilinogen 1 H, Ur Leukocyte Esterase Negative, Urine RBC 0-5 SEEN, Urine WBC 0 SEEN, Ur Squamous Epith Cells 0 SEEN, Urine Bacteria 0 SEEN, Urine Mucus 0 SEEN Imagaing Radiology Impression Brain CT 05/20/23 08:42 IMPRESSION: Chronic involutional changes of the brain. N.B. : The above Results were Read Back by Charanjit Smith MD to Rl Cadena and understanding confirmed on 05/20/2023 09:01:17 (ET). Electronically Signed: Charanjit Smith MD at 9:03 EST , ADDENDUM: 05/20/23 0910 IMPRESSION: Chronic involutional changes of the brain. N.B. : The above Results were Read Back by Charanjit Smith MD to Rl Cadena and understanding confirmed on 05/20/2023 09:01:17 (ET). Electronically Signed: Charanjit Smith MD at 9:03 EST , Head/Neck CTA 05/20/23 08:42 IMPRESSION: Atherosclerotic calcific plaques at the origin of the left internal carotid artery causing between 50 and 69% stenosis. Mild calcific plaque at the origin of the right internal carotid artery causing less than 50% stenosis. Electronically Signed: Charanjit Smith MD at 9:08 EST , ADDENDUM: 05/20/23 0916 IMPRESSION: Atherosclerotic calcific plaques at the origin of the left internal carotid artery causing between 50 and 69% stenosis. Mild calcific plaque at the origin of the right internal carotid artery causing less than 50% stenosis. N.B. : The above Results were Read Back by Charanjit Smith MD to Dr Surinder DO, and understanding confirmed on 05/20/2023 09:09:48 (ET). Electronically Signed: Charanjit Smith MD at 9:08 EST , Chest X-Ray 05/20/23 09:28 IMPRESSION: Increased markings at the right lung base suggestive of atelectasis and/or early infiltrate superimposed on scarring. Electronically Signed: Charanjit Smith MD at 10:05 EST , Assessment & Plan Assessment/Plan (1) Dysarthria: PLAN: Plan Dysarthria * With associated weakness. Patient has fasciculations of his tongue. Is unclear of the significance of this. But would be beneficial to proceed with a stroke workup including an MRI and echocardiogram. Patient is already on aspirin and clopidogrel and will continue with those medications. * Will check an EEG as patient did bite his tongue. Unclear if that was related with prior jaw fasciculations that he was having with this. * Other concerns could include other neurologic diseases such as Parkinson's, PSP, ALS etc. Seems unlikely as this was been in rapid onset and patient has not had any prior history of this in the past. No clear medications that would be contributing to this as well. * Speech therapy * Will check a TSH and ammonia level. Weakness * Unclear etiology but likely tied into the dysarthria somehow. * PT OT evaluate and treat Chronic additions * Hypertension: Hold off on metoprolol and amlodipine until the . * Hypothyroidism: Continue with levothyroxine VTE prophylaxis: Subcu heparin. CODE STATUS: Addressed with the patient. Patient was to be full code. Charges/Coding Visit Charges Inpatient E&M: 95285 Init Hosp L3 05/20/23 1230 <Electronically signed by Lm Delaney DO> Cosigner Signature (if applicable): CC: Dr. Lm Delaney DO; Dr. Jose Hooks MD~ Signed [facility] Work Phone: 1(598) 765-405508-30-2023 Discharge summary Author Bindu Schofield [facility] January 28, 2023 3:40pm Note Date/Time January 28, 2023 3: 31pm [facility] [address] [place] [address]. [address] [place] [address] / REHABILITATION SERVICES DISCHARGE SUMMARY MR#: [id number] Acct: [id number] Name: ANDRADEKULWANT Sheth Rep #: [id number] : 1940 82 From: Cert. SANTHOSH Moya, CONNIE Referring Dr.: Dr. Jose Hooks MD Status: [facility] Insurance: [facility] SELF PAY INSURANCE Patient Information Patient Information: KULWANT ANDRADE was seen in my office for initial evaluation on 10/17/22. The following Plan of Care was established for this patient: POC Established Initial Frequency: 2x /Week Initial Duration: 4 Weeks Anticipated Interventions Patient/Client Instruction: Educate patient on: Condition and Plan of Care For the Purpose of:: To decrease pain, To increase ROM, To improve muscle performance and motor function, To improve ability to perform ADL's, To increasetolerance to activity/condition/position, To improve ability of physical actionsfor home/community/work/leisure, To improve health of tissue, To decrease soft tissue restriction, To increase flexibility/ROM, To improve balance and To improve tolerance to ADL's Therapeutic Exercise to Include: Strength training, Endurance training, Balance training, Postural training, Flexibilty training and Dynamic Lumbar Stabilization For the Purpose of:: To decrease pain, To increase ROM, To improve muscle performance and motor function, To improve ability to perform ADL's, To increasetolerance to activity/condition/position, To improve ability of physical actionsfor home/community/work/leisure, To improve gait and locomotor functions, To decrease soft tissue restriction and To increase flexibility/ROM TENS: Yes IF ES: Yes Cryotherapy (ice pack, ice massage): Yes Ultrasound (thermal/non thermal): Yes For the Purpose of:: To decrease pain, To increase ROM, To improve health of tissue and To decrease soft tissue restriction Last Seen Last Seen: This patient was last seen in our office . Pertinent comments regarding their Physical therapy will appear below: Patient seen for PT evaluation for lumbar pain for DLS with apparent min change with pain thus d/c At this point I will be discontinuing this patient from physical therapy. I would be happy to see this patient again in the future if found appropriate by the physician. Thank you! Bindu Schofield PT, Cert T, [facility] Balance/Gait/Functional tests Balance/Special Test Scores Oswestry Low Back Score: 11 <Electronically signed by Eron Queen PT. SANTHOSH, CONNIE> 01/28/23 6646 CC: Dr. Jose Hooks MD ~ [facility] Signed [facility] Work Phone: 1(763) 667-701211-04-2021 NoteHNO ID: [id number] Author: Kirby Izquierdo APRN.[employer] Service: ? Author Type: Nurse Practitioner Type: Progress Notes Filed: 04/04/2021 6:32 PM Note Text: HPI: Kulwant Andrade is a 80 year old male with PMH of HTN, CKD, who was admitted with acute hypoxic respiratory failure, on the basis of multilobar pneumonia in October 2020. He continue having dyspnea on exertion and fatigue. Stress testing was performed in October which was abnormal, showing inducible ischemia in distal inferolateral lateral apical segments; ejection fraction was 83%. 2D echo performed at that time showed normal left ventricular function with no valvular abnormalities. ?Left heart catheterization demonstrated?severe multivessel coronary disease, including approximately 90% lesions in the proximal RCA, proximal LAD, and proximal circumflex. He has no previous history of AR. ?There was a vague history of cardiomyopathy in the past. Pt has undergone some sort of ablation at [facility] in the remote past, but does not carry history of atrial fibrillation and?has?not been?anticoagulated. On 02/26/2021, patient underwent CABG x3 with Dr. Grewal. His post-op course was relatively unremarkable, and pt was tx to 4200 on POD #4. On POD #6, pt had a non sustained episode of tachy arrhythmia/possible atrial fibrillation. The episode lasted a few minutes with spontaneous resolve. K and mag were repleted. No further episodes. Pt was DC to SNF on POD #7. He was dc home after 6 days stay on SNF. Patient returns to the office today for one month post-discharge follow up. Interval events: none Kulwant Andrade reports home recovery as listed below: C/o: bilateral groin pain x1 week prohibiting him from walking Episodes of dizziness or syncope: no Chest pain: no Palpitations: no BP: reviewed per home log: has been high with SBP 140-170s from time to time. HR 60-80s. Tolerating diet well without changing bowel habits: good Fever, chills: no Activities at home with/without SOB or AWAN: walks frequently but slowed down this week due to pressure pain in groin bilaterally Post surgical pain: none without pain medications . Leg edema: none Sleep: not well Energy: not much yet Subjective: Current Outpatient Medications Medication Sig - lisinopril (ZESTRIL, PRINIVIL) 5 mg tablet Take 0.5 tablets by mouth once daily. Hold for SBP <110 mmHg - metoprolol tartrate, short acting, (LOPRESSOR) 50 mg tablet Take 1 tablet by mouth every 8 hours. Hold for HR <60 and SBP <100 - acetaminophen (TYLENOL) 500 mg tablet Take 2 tablets by mouth every 6 hours. - aspirin 81 mg chewable tablet Take 2 tablets by mouth once daily for 30 days, THEN 1 tablet once daily. - magnesium oxide (MAG-OX) 400 mg (241.3 mg magnesium) tablet Take 1 tablet by mouth once daily. - melatonin 3 mg tablet Take 1 tablet by mouth at bedtime as needed (insomnia). - pantoprazole DR (PROTONIX) 40 mg tablet Take 1 tablet by mouth DAILY (6 AM). - rosuvastatin (CRESTOR) 20 mg tablet Take 1 tablet by mouth daily at bedtime. - spironolactone (ALDACTONE) 25 mg tablet Take 25 mg by mouth once daily. - levothyroxine (SYNTHROID) 75 mcg tablet Take 75 mcg by mouth daily before breakfast. - lidocaine (SALONPAS) 4 % patch Apply 1 Patch as directed once daily. Cut in half and apply to either side of midsternal incision daily. Remove after 12 hrs. (Patient not taking: Reported on 04/04/2021 ) No current facility-administered medications for this visit. Amoxicillin, Amoxicillin-Pot Clavulanate, Atorvastatin, Clavulanic Acid, Fenofibrate, Levofloxacin, and Erythromycin PAST MEDICAL HISTORY Diagnosis Date - Chronic cholecystitis - Essential hypertension, benign - Myalgia and myositis, unspecified - Other and unspecified hyperlipidemia PAST SURGICAL HISTORY Procedure Laterality Date - CABG (3) VEIN GRAFTS AND ARTERIAL GRAFT(S) 02/26/2021 (springer-lad, svg-om1, svt-pda; left evh) - EXPLORATORY OF ABDOMEN Laparotomy, exp - LAPAROSCOPIC CHOLECYSTECTOMY 05/03/2007 - PAST SURGICAL HISTORY OF back surgery - PAST SURGICAL HISTORY OF excision of kidney tumor FAMILY HISTORY Problem Relation Age of Onset - Breast Cancer Sister x3 - Cancer Sister x2 lung - Cancer Brother appendix Social History Tobacco Use - Smoking status: Never Smoker - Smokeless tobacco: Never Used Substance Use Topics - Alcohol use: No - Drug use: Not on file Review of Systems Constitutional: Negative for chills, fever, malaise/fatigue and weight loss. HENT: Negative for sore throat. Respiratory: Negative for cough, sputum production, shortness of breath and wheezing. Cardiovascular: Negative for chest pain, palpitations, orthopnea, claudication, leg swelling and PND. Gastrointestinal: Negative for abdominal pain, blood in stool, constipation, diarrhea, melena, nausea and vomiting. Genitourinary: Negative for dysuria. Musculoskeletal: Negative fo (more content not included)...[facility]10-15-2021 NoteHNO ID: [id number] Author: Yancy Shipman APRN.EDWARD Service: ? Author Type: Nurse Practitioner Type: Progress Notes Filed: 03/15/2021 10:47 AM Note Text: HPI: This is a 80 year old man, who was transferred from [facility] for evaluation of symptomatic severe multivessel?CAD,?and for consideration for CABG.?In October of this year, pt developed myalgias, fever, dyspnea, fatigue, dry cough, and loss of taste. ?He was admitted with acute hypoxic respiratory failure, on the basis of multilobar pneumonia. ?He was diagnosed with Legionella pneumonia, complicated by acute renal insufficiency (creatinine 2.37), with evidence of sepsis (lactate level 3.8). He was ruled out for Covid infection. CT of the chest showed dense consolidation in the posterior segment of the right upper lobe, abutting the major fissure and patchy infiltrate in right lower lobe with a small right pleural effusion. ?Bronchoscopy with BAL was performed showing normal anatomy and no lesions. Pt noted that since October, he has had exertional dyspnea. ?He denied chest pressure, heaviness, burning, syncope, presyncope etc. Stress testing was performed in October which was abnormal, showing inducible ischemia in distal inferolateral lateral apical segments; ejection fraction was 83%. 2D echo performed at that time showed normal left ventricular function with no valvular abnormalities. ?Left heart catheterization demonstrated?severe multivessel coronary disease, including approximately 90% lesions in the proximal RCA, proximal LAD, and proximal circumflex. He has no previous history of AR. ?There was a vague history of cardiomyopathy in the past. Pt has undergone some sort of ablation at [facility] in the remote past, but does not carry history of atrial fibrillation and?has?not been?anticoagulated. There is a vague history of a positive rheumatologic work up, possible SLE. He had been on prednisone 60 mg daily, as of October, but is no longer on immunosuppression. ? On 02/26/2021, patient underwent CABG x3 with Dr. Grewal. His post-op course was relatively unremarkable, and pt was tx to 4200 on POD #4. On POD #6, pt had a non sustained episode of tachy arrhythmia/possible atrial fibrillation, with associated indigestion. The episode lasted a few minutes with spontaneous resolve. K and mag were repleted. No further episodes. Pt was DC to SNF on POD #7. Interval events: Pt denies acute cardiac and incisional complaints. He was DC from SNF last evening and his GF is staying with him. His pain is controlled. He did not bring a VS log with him; will start now. Kulwant Sheth Arnie reports home recovery as listed below: Episodes of dizziness or syncope: No Chest pain: No Palpitations: No BP: reviewed per home log: See above Tolerating diet well without changing bowel habits: Yes Fever, chills: No Activities at home with/without SOB or AWAN: walks around his home; encouraged to walk outside and as estelle. Post surgical pain without pain medications- Tylenol only Leg edema: No Sleep: Okay Energy: Good Subjective: Current Outpatient Medications Medication Sig - lisinopril (ZESTRIL, PRINIVIL) 5 mg tablet Take 0.5 tablets by mouth once daily. Hold for SBP <110 mmHg - metoprolol tartrate, short acting, (LOPRESSOR) 50 mg tablet Take 1 tablet by mouth every 8 hours. Hold for HR <60 and SBP <100 - acetaminophen (TYLENOL) 500 mg tablet Take 2 tablets by mouth every 6 hours. - aspirin 81 mg chewable tablet Take 2 tablets by mouth once daily for 30 days, THEN 1 tablet once daily. - lidocaine (SALONPAS) 4 % patch Apply 1 Patch as directed once daily. Cut in half and apply to either side of midsternal incision daily. Remove after 12 hrs. - magnesium oxide (MAG-OX) 400 mg (241.3 mg magnesium) tablet Take 1 tablet by mouth once daily. - melatonin 3 mg tablet Take 1 tablet by mouth at bedtime as needed (insomnia). - pantoprazole DR (PROTONIX) 40 mg tablet Take 1 tablet by mouth DAILY (6 AM). - rosuvastatin (CRESTOR) 20 mg tablet Take 1 tablet by mouth daily at bedtime. - spironolactone (ALDACTONE) 25 mg tablet Take 25 mg by mouth once daily. - levothyroxine (SYNTHROID) 75 mcg tablet Take 75 mcg by mouth daily before breakfast. No current facility-administered medications for this visit. Amoxicillin, Amoxicillin-Pot Clavulanate, Atorvastatin, Clavulanic Acid, Fenofibrate, Levofloxacin, and Erythromycin PAST MEDICAL HISTORY Diagnosis Date - Chronic cholecystitis - Essential hypertension, benign - Myalgia and myositis, unspecified - Other and unspecified hyperlipidemia PAST SURGICAL HISTORY Procedure Laterality Date - CABG (3) VEIN GRAFTS AND ARTERIAL GRAFT(S) 02/26/2021 (springer-lad, svg-om1, svt-pda; left evh) - EXPLORATORY OF ABDOMEN Laparotomy, exp - LAPAROSCOPIC CHOLECYSTECTOMY 05/03/2007 - PAST SURGICAL HISTORY OF back surgery - PAST SURGICAL HISTORY OF excision of (more content not included)...[facility]10-05-2021 NoteHNO ID: [id number] Author: Cleopatra Walton RN Service: Care Management Author Type: Registered Nurse Type: Care Mgt Progress Note Filed: 03/05/2021 3:12 PM Note Text: CARE MANAGEMENT DISCHARGE NOTE SERVICE DATE: 03/05/2021 SERVICE TIME: 3:00 PM LOS: 10 days Admission Date: 02/23/2021 DISCHARGE ARRANGEMENT (list agency and phone number) Discharge Arrangement: halfway facility Was an expedited discharge program used?: No Provider Name: [facility] CAREGIVER ASSESSMENT: HANDOFF COMMUNICATION: Handoff to: Primary Care Physician Primary Care Physician Name/Phone: Unknown TRANSPORTATION ARRANGEMENTS: Transportation Arrangements: Ambulance/[facility] Transportation Agency and Phone #:: [facility] ( [facility] ) [phone] / [phone] Date of Trip: 03/05/21 Time of Trip: 1600 Type of Service: Wheelchair Discussion of financial coverage occurred with: Family Division Operations Manager Location: [facility] Destination: [facility] Financial Care Management Responsibility: None ADDITIONAL CONTACT RESOURCES: None Patient has been discharged to [facility]. [facility] is transporting patient via at 16:00. Patient and his dtr notified. RN aware of discharge time. Discharge orders faxed SIGNATURE: Cleopatra Walton RN PATIENT NAME: Kulwant Andrade DATE: March 05, 2021 TIME: 3:00 PM [facility]AG[facility] #[phone] NoteHNO ID: [id number] Author: Isiah Canada RPh Service: Pharmacy Author Type: Pharmacist Type: Plan of Care Filed: 03/05/2021 2:47 PM Note Text: DISCHARGE MEDICATION REVIEW BY PHARMACY Patient Name: Kulwant Andrade Account #: Data Unavailable Admission Date: 02/23/2021 Date of Contact: March 05, 2021 Time of Contact: 2:47 PM Medication list was reviewed by a Pharmacist for drug interactions or drug related problems:Yes Below is a summary of pharmacist recommendations discussed with LIP: No Recommendations at this time from Discharge Medication List. Isiah Canada RPh March 05, 2021 2:47 PM Pager: [phone] 03/05/2021 2:47 PM Medication List START taking these medications acetaminophen 500 mg tablet Commonly known as: TYLENOL Take 2 tablets by mouth every 6 hours. aspirin 81 mg chewable tablet Take 2 tablets by mouth once daily for 30 days, THEN 1 tablet once daily. Start taking on: March 06, 2021 lidocaine 4 % patch Commonly known as: SALONPAS Apply 1 Patch as directed once daily. Cut in half and apply to either side of midsternal incision daily. Remove after 12 hrs. Start taking on: March 06, 2021 magnesium oxide 400 mg (241.3 mg magnesium) tablet Commonly known as: MAG-OX Take 1 tablet by mouth once daily. Start taking on: March 06, 2021 melatonin 3 mg tablet Take 1 tablet by mouth at bedtime as needed (insomnia). pantoprazole DR 40 mg tablet Commonly known as: PROTONIX Take 1 tablet by mouth DAILY (6 AM). Start taking on: March 06, 2021 rosuvastatin 20 mg tablet Commonly known as: CRESTOR Take 1 tablet by mouth daily at bedtime. traMADol 50 mg tablet Commonly known as: ULTRAM Take 1 tablet by mouth every 6 hours as needed for pain for up to 7 days. CHANGE how you take these medications lisinopril 5 mg tablet Commonly known as: ZESTRIL, PRINIVIL Take 1 tablet by mouth once daily. Hold for SBP <110 mmHg Start taking on: March 06, 2021 What changed: ? medication strength ? how much to take ? additional instructions metoprolol tartrate (short acting) 50 mg tablet Commonly known as: LOPRESSOR Take 1 tablet by mouth every 8 hours. Hold for HR <60 and SBP <100 What changed: ? medication strength ? how much to take ? when to take this ? additional instructions CONTINUE taking these medications spironolactone 25 mg tablet Commonly known as: ALDACTONE SYNTHROID 75 mcg tablet Generic drug: levothyroxine STOP taking these medications Cholecalciferol (Vitamin D3) 125 mcg (5,000 unit) Cap famotidine 40 mg tablet Commonly known as: PEPCID omeprazole 20 mg capsule Commonly known as: PriLOSEC TYLENOL PM EXTRA STRENGTH [facility]10-05-2021 NoteHNO ID: [id number] Author: Yancy Shipman APRN.SYNCHRONOUS MOTOR ASSEMBLER Service: Cardiovascular Surgery Author Type: Nurse Practitioner Type: Progress Notes Filed: 03/05/2021 11:35 AM Note Text: CARDIOTHORACIC SURGERY POSTOP PROGRESS NOTE SERVICE DATE: 03/04/2021 SERVICE TIME: 09:45 AM Subjective S/P SURGERY: Procedure(s) (LRB): BYPASS GRAFT ARTERY CORONARY ON-PUMP SINGLE CORONARY ARTERIAL GRAFT (N/A) BYPASS GRAFT ARTERY CORONARY ON-PUMP USING VENOUS GRAFT(S) AND ARTERIAL GRAFT(S); TWO VENOUS GRAFTS (N/A) ENDOSCOPIC HARVEST VEIN FOR CORONARY ARTERY BYPASS PROCEDURE (N/A) DATE OF SURGERY: 02/26/2021 POSTOP DAY #7 LOS: 10 HPI:??This is a 80 year old man, transferred from [facility] for evaluation of symptomatic severe multivessel?CAD,?and for consideration for CABG.?In October of this year, pt developed myalgias, fever, dyspnea, fatigue, dry cough, and loss of taste. ?He was admitted with acute hypoxic respiratory failure, on the basis of multilobar pneumonia. ?He was diagnosed with Legionella pneumonia, complicated by acute renal insufficiency (creatinine 2.37), with evidence of sepsis (lactate level 3.8). He was ruled out for Covid infection. CT of the chest showed dense consolidation in the posterior segment of the right upper lobe, abutting the major fissure and patchy infiltrate in right lower lobe with a small right pleural effusion. ?Bronchoscopy with BAL was performed showing normal anatomy and no lesions. Pt noted that since October, he has had exertional dyspnea. ?He denied chest pressure, heaviness, burning, syncope, presyncope etc. Stress testing was performed in October which was abnormal, showing inducible ischemia in distal inferolateral lateral apical segments; ejection fraction was 83%. 2D echo performed at that time showed normal left ventricular function with no valvular abnormalities. ?Left heart catheterization demonstrated?severe multivessel coronary disease, including approximately 90% lesions in the proximal RCA, proximal LAD, and proximal circumflex. He has no previous history of AR. ?There was a vague history of cardiomyopathy in the past. Pt has undergone some sort of ablation at [facility] in the remote past, but does not carry history of atrial fibrillation and?has?not been?anticoagulated. There is a vague history of a positive rheumatologic work up, possible SLE. He had been on prednisone 60 mg daily, as of October, but is no longer on immunosuppression. On 02/26/2021, patient underwent CABG x3 with Dr. Grewal. His post-op course has been relatively unremarkable, and pt was tx to 4200 on POD #4. AM CXR on 10/3 with small BL effusions. On POD #6, pt had a non sustained episode of tachy arrhythmia/possible atrial fibrillation, with associated indigestion. The episode lasted a few minutes with spontaneous resolve. K and mag were repleted. No further episodes. INTERVAL EVENTS / PERTINENT ROS:?NAEO, pt is hemodynamically stable. AM labs reviewed: HANDH stable, hypokalemia resolved. Per tele pt in NSR with PVCs. Pt denies acute cardiac and incisional complaints. Pain is controlled. He is ambulating without difficulty and has had BMs. Objective Admission Weight: 73.7 kg (162 lb 6.4 oz) BP 149/87 Pulse 72 Temp 36.7 ?C (98.1 ?F) (Oral) Resp 18 Ht 182.9 cm (6') Wt 82.2 kg (181 lb 3.5 oz) SpO2 95% BMI 24.58 kg/m? Body surface area is 2.04 meters squared. Min/Max/Average Temperature AND Blood Pressure: Temp (24hrs), Av.8 ?C (98.2 ?F), Min:36.4 ?C (97.5 ?F), Max:37 ?C (98.6 ?F) Systolic (24hrs), Av, Min:104 , Max:1149 Diastolic (24hrs), Av, Min:68, Max:102 Intake/Output Summary (Last 24 hours) at 03/05/2021 1122 Last data filed at 03/05/2021 0434 Gross per 24 hour Intake ? Output 1800 ml Net -1800 ml TELEMETRY: NSR with PVCs PHYSICAL EXAM: General Appearance: Well developed and well nourished appearance. No acute distress sitting in chair. Skin/SURGICAL SITE: Midsternal incision CDI with glue. Sternal bones stable. CT site dressing CDI. LE vein harvest site dressing CDI. L thigh ecchymotic and edematous. Neck: no JVD; supple Lungs: clear and respiratory effort: normal Heart: regular rhythm and S1, S2 normal Peripheral Vascular/Arteries: BL radial and PT pulses palpable. Abdomen: soft, non-tender and bowel sounds present Neurologic/Psychiatric: Oriented to person, place, time. Normal affect. No gross focal neurologic deficits. Extremities: L thigh edema, no edema BLE. Lines, Drains, and Airways Line Peripheral Double Lumen 02/23/21 0515 Admission to Hospital Short Left Forearm 22 Gauge 10 days Peripheral 02/24/21 0600 Assessment Short Right Forearm 20 Gauge 9 days DATA: Diagnostic tests reviewed for today's visit: Chest X-RAY on 03/03: Lungs and pleura: ?There are persistent bilateral pleural effusions. ? There are bibasilar infiltrates/atelectasis. ?There is central vascular prominence. (more content not included)...[facility]10-04-2021 NoteHNO ID: [id number] Author: Yancy Shipman APRN.EDWARD Service: Cardiovascular Surgery Author Type: Nurse Practitioner Type: Progress Notes Filed: 03/04/2021 10:25 AM Note Text: CARDIOTHORACIC SURGERY POSTOP PROGRESS NOTE SERVICE DATE: 03/03/2021 SERVICE TIME: 09:30 AM [facility] S/P SURGERY: Procedure(s) (LRB): BYPASS GRAFT ARTERY CORONARY ON-PUMP SINGLE CORONARY ARTERIAL GRAFT (N/A) BYPASS GRAFT ARTERY CORONARY ON-PUMP USING VENOUS GRAFT(S) AND ARTERIAL GRAFT(S); TWO VENOUS GRAFTS (N/A) ENDOSCOPIC HARVEST VEIN FOR CORONARY ARTERY BYPASS PROCEDURE (N/A) DATE OF SURGERY: 02/26/2021 POSTOP DAY #6 LOS: 9 HPI:??This is a 80 year old man, transferred from [facility] s/[facility] for evaluation of symptomatic severe multivessel?CAD,?and for consideration for CABG.?In October of this year, pt developed myalgias, fever, dyspnea, fatigue, dry cough, and loss of taste. ?He was admitted with acute hypoxic respiratory failure, on the basis of multilobar pneumonia. ?He was diagnosed with Legionella pneumonia, complicated by acute renal insufficiency (creatinine 2.37), with evidence of sepsis (lactate level 3.8). He was ruled out for Covid infection. CT of the chest showed dense consolidation in the posterior segment of the right upper lobe, abutting the major fissure and patchy infiltrate in right lower lobe with a small right pleural effusion. ?Bronchoscopy with BAL was performed showing normal anatomy and no lesions. Pt noted that since October, he has had exertional dyspnea. ?He denied chest pressure, heaviness, burning, syncope, presyncope etc. Stress testing was performed in October which was abnormal, showing inducible ischemia in distal inferolateral lateral apical segments; ejection fraction was 83%. 2D echo performed at that time showed normal left ventricular function with no valvular abnormalities. ?Left heart catheterization demonstrated?severe multivessel coronary disease, including approximately 90% lesions in the proximal RCA, proximal LAD, and proximal circumflex. He has no previous history of AR. ?There was a vague history of cardiomyopathy in the past. Pt has undergone some sort of ablation at [facility] in the remote past, but does not carry history of atrial fibrillation and?has?not been?anticoagulated. There is a vague history of a positive rheumatologic work up, possible SLE. He had been on prednisone 60 mg daily, as of October, but is no longer on immunosuppression. On 02/26/2021, patient underwent CABG x3 with Dr. Grewal. His post-op course has been relatively unremarkable, and pt was tx to 4200 on POD #4. AM CXR on 03/03 with small BL effusions. INTERVAL EVENTS / PERTINENT ROS:?NAEO, pt is hemodynamically stable. AM labs reviewed: HANDH incrementally improved, worsening hypokalemia. Per tele; pt appeared to have an episode of atrial fibrillation this AM, he is otherwise in NSR with PVCs. Per pt; he had an episode of indigestion this AM, which spontaneously resolved. Wonder if this was in relation with episode of a-fib. He denied all other acute cardiac or incisional complaints. Pain was controlled. Of note: following my assessment; RN informed me that pt BP 95/58 manually, HR 76, in NSR with PVCs, and he was feeling dizzy. She was told to get pt back into bed, hold AM dose of Lasix, hold additional dose of Metop 25 mg for now, and check stat Mag. Objective Admission Weight: 73.7 kg (162 lb 6.4 oz) BP 95/58 Pulse 95 Temp 37.5 ?C (99.5 ?F) Resp 16 Ht 182.9 cm (6') Wt 82.6 kg (182 lb 1.6 oz) SpO2 93% BMI 24.70 kg/m? Body surface area is 2.05 meters squared. Min/Max/Average Temperature AND Blood Pressure: Temp (24hrs), Av.2 ?C (99 ?F), Min:37.1 ?C (98.8 ?F), Max:37.5 ?C (99.5 ?F) Systolic (24hrs), Av, Min:95 , Max:145 Diastolic (24hrs), Av, Min:51, Max:91 Intake/Output Summary (Last 24 hours) at 03/04/2021 1008 Last data filed at 03/04/2021 0800 Gross per 24 hour Intake ? Output 1025 ml Net -1025 ml TELEMETRY: NSR with PVCs PHYSICAL EXAM: General Appearance: Well developed and well nourished appearance. No acute distress sitting in chair. Skin/SURGICAL SITE: Midsternal incision CDI with glue. Sternal bones stable. CT site dressing CDI. LE vein harvest site dressing CDI. L thigh ecchymotic and edematous. Neck: no JVD; supple Lungs: clear and respiratory effort: normal Heart: regular rhythm and S1, S2 normal Peripheral Vascular/Arteries: BL radial and PT pulses palpable. Abdomen: soft, non-tender and bowel sounds present Neurologic/Psychiatric: Oriented to person, place, time. Normal affect. No gross focal neurologic deficits. Extremities: L thigh edema, no edema BLE. Lines, Drains, and Airways Line Peripheral Double Lumen 02/23/21 0515 Admission to Hospital Short Left Forearm 22 Gauge 9 days Peripheral 02/24/21 0600 Assessment Short Right Forearm 20 Gauge 8 days DATA: Diagnostic tests review (more content not included)...[facility]10-03-2021 NoteHNO ID: [id number] Author: Timo Hooper PA-C Service: Cardiovascular Surgery Author Type: Physician Sewage Screen Operator Type: Progress Notes Filed: 03/03/2021 11:26 AM Note Text: CARDIOTHORACIC SURGERY POSTOP PROGRESS NOTE SERVICE DATE: 03/02/2021 SERVICE TIME: 8:17 AM Subjective S/P SURGERY: Procedure(s) (LRB): BYPASS GRAFT ARTERY CORONARY ON-PUMP SINGLE CORONARY ARTERIAL GRAFT (N/A) BYPASS GRAFT ARTERY CORONARY ON-PUMP USING VENOUS GRAFT(S) AND ARTERIAL GRAFT(S); TWO VENOUS GRAFTS (N/A) ENDOSCOPIC HARVEST VEIN FOR CORONARY ARTERY BYPASS PROCEDURE (N/A) DATE OF SURGERY: 02/26/2021 POSTOP DAY #5 LOS: 7 HPI:??This is a 80 year old man transferred from [facility] after left heart catheterization for evaluation of symptomatic severe multivessel?CAD,?for consideration of CABG.?In October of this year he developed myalgias, fever, dyspnea, fatigue, dry cough, and loss of taste. ?He was admitted with acute hypoxic respiratory failure on the basis of multilobar pneumonia. ?He was diagnosed with Legionella pneumonia, complicated by acute renal insufficiency (creatinine 2.37) with evidence of sepsis (lactate level 3.8). He ruled out for Covid infection. CT of the chest showed dense consolidation in the posterior segment of the right upper lobe abutting the major fissure and patchy infiltrate in right lower lobe with a small right pleural effusion. ?Bronchoscopy with BAL was performed showing normal anatomy and no lesions. ? He has noted since that time he has had exertional dyspnea. ?He denies chest pressure, heaviness, burning, syncope, presyncope etc. ?Stress testing was performed in October which was abnormal, showing decreased perfusion status post stress in the distal inferolateral lateral apical segments; ejection fraction is 83%. ?2D echo performed at that time showed normal left ventricular function with no valve abnormalities. ?Left heart catheterization demonstrated?severe multivessel coronary disease including approximately 90% lesions in the proximal RCA, proximal LAD, and proximal circumflex. He has no previous history of heart attack. ?There is a vague history of cardiomyopathy in the past. ?Is undergone some sort of ablation at [facility] in the remote past but does not carry history of atrial fibrillation and?has?not been?anticoagulated. There is a vague history of a positive rheumatologic work up, possible SLE. He had been on prednisone 60 mg daily, as of October, but is no longer on immunosuppression. ? INTERVAL EVENTS / PERTINENT ROS:?On 02/26/2021, patient underwent CABG x3 with Dr. Grewal. ?He was transferred to CVICU in stable condition and extubated within early extubation protocol. Patient seen and examined today. His hgb improved slightly today. Patient is well-appearing and reports no pain at this time. He has walked and has had a BM. Patient is saturating well on RA. He is currently awaiting pre-certification for rehab facility Objective Admission Weight: 73.7 kg (162 lb 6.4 oz) BP 147/86 Pulse 95 Temp 36.9 ?C (98.4 ?F) (Oral) Resp 16 Ht 182.9 cm (6') Wt 86.3 kg (190 lb 4.1 oz) SpO2 93% BMI 25.80 kg/m? Body surface area is 2.09 meters squared. Min/Max/Average Temperature AND Blood Pressure: Temp (24hrs), Av.8 ?C (98.2 ?F), Min:36.6 ?C (97.9 ?F), Max:36.9 ?C (98.4 ?F) Systolic (24hrs), Av , Min:97 , Max:155 Diastolic (24hrs), Av, Min:68, Max:140 Intake/Output Summary (Last 24 hours) at 03/03/2021 1118 Last data filed at 03/03/2021 0700 Gross per 24 hour Intake 347 ml Output 1000 ml Net -653 ml TELEMETRY: sinus tachycardia PHYSICAL EXAM: General Appearance: Well developed and well nourished appearance. No acute distress. Skin: Midsternal AND SVG incision dry AND intact, without redness, drainage or edema. Neck: no JVD; supple Lungs: clear and respiratory effort: normal Heart: regular rhythm and S1, S2 normal Peripheral Vascular/Arteries: pulses intact Abdomen: soft, non-tender and bowel sounds present Neurologic/Psychiatric: Oriented to person, place, time. Normal affect. No gross focal neurologic deficits. Extremities: edema: 2+, pitting at lower extremities Lines, Drains, and Airways Line Peripheral Double Lumen 02/23/21 0515 Admission to Hospital Short Left Forearm 22 Gauge 8 days Peripheral 02/24/21 0600 Assessment Short Right Forearm 20 Gauge 7 days DATA: Diagnostic tests reviewed for today's visit: Chest X-RAY: Lungs and pleura: ?There are persistent bilateral pleural effusions. ? There are bibasilar infiltrates/atelectasis. ?There is central vascular prominence. ?There has been resolution of the previously seen mild pulmonary edema. Recent Labs 03/03/21 0358 03/02/21 0547 03/01/21 0833 RBC 2.30* 2.01* 2.21* WBC 6.46 6.48 8.25 HB 7.2* 6.4* 7.0* HCT 22.3* 20.2* 21.8* PLT 221 195 207 NA 141 139 138 K 3.5* 3.7 4.0 CHLOR 106* 107* 110* CO2 22 22 18* BUN 2 (more content not included)...[facility]10-02-2021 Note HNO ID: [id number] Author: Owen Rubin RN Service: Nursing Author Type: Registered Nurse Type: Nursing Progress Note Filed: 03/02/2021 3:42 PM Note Text: Pt transferred to [id number], SHENA [facility]10-02-2021 NoteHNO ID: [id number] Author: Bety Swain PA-C Service: Cardiovascular Surgery Author Type: Physician Sewage Screen Operator Type: Progress Notes Filed: 03/02/2021 11:42 AM Note Text: CARDIOTHORACIC SURGERY POSTOP PROGRESS NOTE SERVICE DATE: 03/02/2021 SERVICE TIME: 8:17 AM Subjective S/P SURGERY: Procedure(s) (LRB): BYPASS GRAFT ARTERY CORONARY ON-PUMP SINGLE CORONARY ARTERIAL GRAFT (N/A) BYPASS GRAFT ARTERY CORONARY ON-PUMP USING VENOUS GRAFT(S) AND ARTERIAL GRAFT(S); TWO VENOUS GRAFTS (N/A) ENDOSCOPIC HARVEST VEIN FOR CORONARY ARTERY BYPASS PROCEDURE (N/A) DATE OF SURGERY: 02/26/2021 POSTOP DAY #4 LOS: 7 HPI:??This is a 80 year old man transferred from [facility] after left heart catheterization for evaluation of symptomatic severe multivessel?CAD,?for consideration of CABG.?In October of this year he developed myalgias, fever, dyspnea, fatigue, dry cough, and loss of taste. ?He was admitted with acute hypoxic respiratory failure on the basis of multilobar pneumonia. ?He was diagnosed with Legionella pneumonia, complicated by acute renal insufficiency (creatinine 2.37) with evidence of sepsis (lactate level 3.8). He ruled out for Covid infection. CT of the chest showed dense consolidation in the posterior segment of the right upper lobe abutting the major fissure and patchy infiltrate in right lower lobe with a small right pleural effusion. ?Bronchoscopy with BAL was performed showing normal anatomy and no lesions. ? He has noted since that time he has had exertional dyspnea. ?He denies chest pressure, heaviness, burning, syncope, presyncope etc. ?Stress testing was performed in October which was abnormal, showing decreased perfusion status post stress in the distal inferolateral lateral apical segments; ejection fraction is 83%. ?2D echo performed at that time showed normal left ventricular function with no valve abnormalities. ?Left heart catheterization demonstrated?severe multivessel coronary disease including approximately 90% lesions in the proximal RCA, proximal LAD, and proximal circumflex. He has no previous history of heart attack. ?There is a vague history of cardiomyopathy in the past. ?Is undergone some sort of ablation at [facility] in the remote past but does not carry history of atrial fibrillation and?has?not been?anticoagulated. There is a vague history of a positive rheumatologic work up, possible SLE. He had been on prednisone 60 mg daily, as of October, but is no longer on immunosuppression. ? INTERVAL EVENTS / PERTINENT ROS:?On 02/26/2021, patient underwent CABG x3 with Dr. Grewal. ?He was transferred to CVICU in stable condition and extubated within early extubation protocol. Today, patient is seen and examined.?Hgb is 6.4 this AM, we will still transfuse despite remaining hemodynamically stable with NSR, normotensive, 97% on 2L NC, Cr 0.97, no dizziness or light headed. He is having confusion with day/nights.?Denies chest pain, abdominal pain (+BM), and shortness of breath. His appetite and ambulation also improving. No events overnight. Labs and images reviewed. Objective Admission Weight: 73.7 kg (162 lb 6.4 oz) BP (!) 155/140 Pulse 110 Temp 36.8 ?C (98.2 ?F) (Temporal) Resp 15 Ht 182.9 cm (6') Wt 86.3 kg (190 lb 4.1 oz) SpO2 95% BMI 25.80 kg/m? Body surface area is 2.09 meters squared. Min/Max/Average Temperature AND Blood Pressure: Temp (24hrs), Av.9 ?C (98.5 ?F), Min:36.7 ?C (98.1 ?F), Max:37.3 ?C (99.1 ?F) Systolic (24hrs), Av , Min:97 , Max:155 Diastolic (24hrs), Av, Min:68, Max:140 Intake/Output Summary (Last 24 hours) at 03/02/2021 0817 Last data filed at 03/02/2021 0600 Gross per 24 hour Intake 1320 ml Output 2025 ml Net -705 ml TELEMETRY: sinus tachycardia PHYSICAL EXAM: General Appearance: Well developed and well nourished appearance. No acute distress. Midsternal AND SVG incision dry AND intact, without redness, drainage or edema. Head/Eyes: Sclera clear, normal conjunctiva. EOMI Neck: no JVD and RIJ dressing dry and intact Lungs: clear and respiratory effort: normal Heart: regular rhythm and S1, S2 normal Peripheral Vascular/Arteries: pulses intact Abdomen: soft, non-tender and bowel sounds present Neurologic/Psychiatric: Oriented to person, place, time. Normal affect. No gross focal neurologic deficits. Extremities: edema: 2+, pitting at lower extremities L>R Lines, Drains, and Airways Line Peripheral Double Lumen 02/23/21 0515 Admission to Hospital Short Left Forearm 22 Gauge 7 days Peripheral 02/24/21 0600 Assessment Short Right Forearm 20 Gauge 6 days Central Line Quadruple Lumen 02/26/21 Non-tunneled Right Neck 4 days DATA: Diagnostic tests reviewed for today's visit: Chest X-RAY: -Low lung volumes, likely related to poor inspiratory result. -Again demonstrated are mixed interstitial and airspace opacities involving the right mid and bilateral lower lung z (more content not included)...[facility]10-02-2021 NoteHNO ID: [id number] Author: Owen Rubin RN Service: Nursing Author Type: Registered Nurse Type: Nursing Progress Note Filed: 03/02/2021 2:06 PM Note Text: HgB 6.4 FAHEEM Albert aware See [facility]21 NoteHNO ID: [id number] Author: Kishore Schwab MD Service: Critical Care Author Type: Physician Type: Progress Notes Filed: 03/01/2021 11:56 PM Note Text: MICU - PROGRESS NOTE SERVICE DATE: March 01, 2021 Admission Date: 02/23/2021 AGE: [age] year old LOS: 6 days Subjective Just returned from a walk. Chest tubes are out. Wanting to go home soon. Up in chair. No breathing complaints and no SOB on ambulation. SaO2 93% on 3l/min. 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, Acquired Arthralgia Esr Raised Crp Elevated Bart (Acute Kidney Injury) (Hcc) Dehydration Hypercalcemia Low Serum Parathyroid Hormone (Pth) Cad (Coronary Artery Disease) PAST MEDICAL HISTORY Diagnosis Date - Chronic cholecystitis - Essential hypertension, benign - Myalgia and myositis, unspecified - Other and unspecified hyperlipidemia PAST SURGICAL HISTORY Procedure Laterality Date - EXPLORATORY OF ABDOMEN Laparotomy, exp - LAPAROSCOPIC CHOLECYSTECTOMY 05/03/07 - PAST SURGICAL HISTORY OF back surgery - PAST SURGICAL HISTORY OF excision of kidney tumor Social History Tobacco Use - Smoking status: Never Smoker - Smokeless tobacco: Never Used Substance Use Topics - Alcohol use: No - Drug use: Not on file VITAL SIGNS (last 24hrs min/max): Temp Av.7 ?C (98 ?F) Min: 35.3 ?C (95.54 ?F) Max: 37.1 ?C (98.8 ?F) Pulse Av.1 Min: 56 Max: 121 Arterial BP 1 Min: 78/41 Max: 151/77 Cuff BP Min: 81/63 Max: 123/66 Pain Level: 0 Vital signs reviewed. BP 107/70 Pulse 93 Temp (Src) 98.1 (Temporal) Resp 13 Ht 6' 0 (1.83m) Wt 190 lb 4.1 oz (86.3kg) SpO2 93% BMI 25.80 kg/(m2). O2 Therapy: Nasal Cannula, Liters: 2 Temp (24hrs), Av.9 ?C (98.5 ?F), Min:36.7 ?C (98.1 ?F), Max:37.1 ?C (98.8 ?F) NET FLUID BALANCE Intake/Output Summary (Last 24 hours) at 03/01/2021 2350 Last data filed at 03/01/2021 1800 Gross per 24 hour Intake 1080 ml Output 1780 ml Net -700 ml MEDICATIONS Current Facility-Administered Medications Medication Dose Route Frequency - metoprolol tartrate (short acting) 50 mg tab(s) (LOPRESSOR) 50 mg ORAL q 12 H - tamsulosin 0.4 mg cap(s) (FLOMAX) 0.4 mg ORAL DAILY - pantoprazole DR 40 mg tab(s) (PROTONIX) 40 mg ORAL DAILY (6 AM) - lidocaine 4 % 1 Patch (SALONPAS) 1 Patch TRANSDERMAL DAILY And - lidocaine patch - REMOVE OTHER AT BEDTIME And - lidocaine - VERIFY PATCH OTHER q 8 H - fentaNYL 50 mcg/mL 25 mcg injection (SUBLIMAZE) 25 mcg INTRAVENOUS q 1 H PRN - polyethylene glycol 3350 17 g packet (MIRALAX, GLYCOLAX) 17 g ORAL DAILY - senna-docusate 8.6-50 mg 1 tablet (SENNA-S) 1 tablet ORAL BID - dextrose 50% in water 25 mL syringe 12.5 g INTRAVENOUS PRN - aspirin 162 mg chewable tab(s) 162 mg ORAL DAILY - potassium chloride iv piggyback 20 mEq/100 mL 20 mEq INTRAVENOUS PRN - magnesium sulfate in sterile water 2 g in sterile water 50 ml 2 g INTRAVENOUS PRN(NO DISPENSE) - enoxaparin 40 mg injection (LOVENOX) 40 mg SUBCUTANEOUS q 24 HR - sodium chloride 0.9 % (flush) 3-5 mL (BD POSIFLUSH) 3-5 mL INTRAVENOUS q 12 H - lactated ringers iv infusion 50 mL/hr INTRAVENOUS CONTINUOUS - albuterol 2.5 mg /3 mL (0.083 %) 2.5 mg (PROVENTIL) 2.5 mg INHALATION q 2 H PRN - rosuvastatin 20 mg tab(s) (CRESTOR) 20 mg ORAL AT BEDTIME - ondansetron (PF) 4 mg injection (ZOFRAN) 4 mg INTRAVENOUS q 6 H PRN - acetaminophen 1,000 mg tab(s) (TYLENOL) 1,000 mg ORAL q 6 H - magnesium oxide 400 mg tab(s) (MAG-OX) 400 mg ORAL DAILY - traMADol 50-100 mg tab(s) (ULTRAM) 50-100 mg ORAL q 6 H PRN - levothyroxine 75 mcg tab(s) (SYNTHROID) 75 mcg ORAL DAILY (6 AM) Lines, Drains, and Airways Line Peripheral Double Lumen 02/23/21 0515 Admission to Hospital Short Left Forearm 22 Gauge 6 days Peripheral 02/24/21 0600 Assessment Short Right Forearm 20 Gauge 5 days Central Line Quadruple Lumen 02/26/21 Non-tunneled Right Neck 3 days PHYSICAL EXAM PERFORMED: General: no acute distress ENT: No thrush. Grade II airway. Neck: No JVD. +Right IJV TLC. Cardiovascular: Regular rhythm with extrasystoles. Ventricular quadrigeminy on monitor. Respiratory: Clear to auscultation A/L. Serosanguinous drainage from chest tubes. Abdomen: Soft, Nontender and Positive bowel sounds Extremities: Edema- No Neurologic: Awake, oriented, Alert, Follows commands and Moving all extremities Respiratory/Nursing Documentation: O2 Therapy: Nasal Cannula (03/01/211999) Invasive Ventilator Mode: Synchronized Intermittent Mandatory Ventilation (02/26/211512) Set Ventilator Respiratory Rate (BPM): 12 (02/26/21 1515) Invasive Ventilator Total Respiratory Rate (BPM): 12 (02/26/211512) Invasive Ventilator Tidal Volume Set (mL): 570 (02/26/211512) Exhaled Tidal Volume (mL): 570 (02/26/211512) Minute Volume (L): 6.9 (02/26/211512) Peak Inspiratory (more content not included)...[facility] 03-01-2021 NoteHNO ID: [id number] Author: Bindu Sheehan PA-C Service: Cardiovascular Surgery Author Type: Physician Sewage Screen Operator Type: Progress Notes Filed: 03/01/2021 2:09 PM Note Text: CARDIOTHORACIC SURGERY POSTOP PROGRESS NOTE SERVICE DATE: 03/01/2021 SERVICE TIME: 7:37 AM Subjective S/P SURGERY: Procedure(s) (LRB): BYPASS GRAFT ARTERY CORONARY ON-PUMP SINGLE CORONARY ARTERIAL GRAFT (N/A) BYPASS GRAFT ARTERY CORONARY ON-PUMP USING VENOUS GRAFT(S) AND ARTERIAL GRAFT(S); TWO VENOUS GRAFTS (N/A) ENDOSCOPIC HARVEST VEIN FOR CORONARY ARTERY BYPASS PROCEDURE (N/A) DATE OF SURGERY: 02/26/2021 POSTOP DAY #3 LOS: 6 HPI:??This is a 80 year old man transferred from [facility] after left heart catheterization for evaluation of symptomatic severe multivessel CAD, for consideration of CABG.?In October of this year he developed myalgias, fever, dyspnea, fatigue, dry cough, and loss of taste. ?He was admitted with acute hypoxic respiratory failure on the basis of multilobar pneumonia. ?He was diagnosed with Legionella pneumonia, complicated by acute renal insufficiency (creatinine 2.37) with evidence of sepsis (lactate level 3.8). He ruled out for Covid infection. CT of the chest showed dense consolidation in the posterior segment of the right upper lobe abutting the major fissure and patchy infiltrate in right lower lobe with a small right pleural effusion. ?Bronchoscopy with BAL was performed showing normal anatomy and no lesions. ? He has noted since that time he has had exertional dyspnea. ?He denies chest pressure, heaviness, burning, syncope, presyncope etc. ?Stress testing was performed in October which was abnormal, showing decreased perfusion status post stress in the distal inferolateral lateral apical segments; ejection fraction is 83%. ?2D echo performed at that time showed normal left ventricular function with no valve abnormalities. Left heart catheterization demonstrated severe multivessel coronary disease including approximately 90% lesions in the proximal RCA, proximal LAD, and proximal circumflex. He has no previous history of heart attack. ?There is a vague history of cardiomyopathy in the past. ?Is undergone some sort of ablation at [facility] in the remote past but does not carry history of atrial fibrillation and has not been anticoagulated. There is a vague history of a positive rheumatologic work up, possible SLE. He had been on prednisone 60 mg daily, as of October, but is no longer on immunosuppression. ? INTERVAL EVENTS / PERTINENT ROS: On 02/26/2021, patient underwent CABG x3 with SPRINGER to LAD, saphenous vein graft to OM1, saphenous vein graft to PDA. He was transferred to CVICU in stable condition. Of note, hemoglobin A1c was 5.3. Home Synthroid has been resumed. Andrews catheter was removed. Patient was seen/examined in CVICU on postop day #2. He is getting ready to go for a walk. Chest tube output has been minimal overnight and will be removed today. RN reports low urine output and is requesting Flomax. Doe-Synephrine is off, metoprolol is at 25 mg bid, however pressure is running 120s-150s, HR at 100, He states having some trouble voiding, but able to small amounts, has had some problems with prostate in the past specifically with cold medicines, otherwise he has no complaints today, No SOB, no CP. ? Objective Admission Weight: 73.7 kg (162 lb 6.4 oz) BP 124/81 Pulse 80 Temp 36.9 ?C (98.5 ?F) Resp 10 Ht 182.9 cm (6') Wt 86.3 kg (190 lb 4.1 oz) SpO2 97% BMI 25.80 kg/m? Body surface area is 2.09 meters squared. Min/Max/Average Temperature AND Blood Pressure: Temp (24hrs), Av.8 ?C (98.2 ?F), Min:36.3 ?C (97.3 ?F), Max:37.1 ?C (98.8 ?F) No data recorded. No data recorded. Intake/Output Summary (Last 24 hours) at 03/01/2021 1404 Last data filed at 03/01/2021 1200 Gross per 24 hour Intake 1906 ml Output 1098 ml Net 808 ml TELEMETRY: NSR with multiple unifocal PVC's PHYSICAL EXAM: General: Well developed and well nourished appearance. No acute distress. Sitting upright in the chair at bedside Skin: No rash on chest, arms or legs. Warm, dry. Sternal incision healing well, left leg incision has no drainage, or redness Head/Eyes: Sclera clear, mild pale conjunctiva. EOMI.. Neck: No JVD. Supple. Central line in place, trachea midline Lungs: Normal respiratory effort. Clear lungs without rhonchi, rales, wheezing. No accessory muscle use Heart: Normal PMI. Regular rate and rhythm. Normal S1, S2. No murmurs. No rubs. Peripheral Vascular/Arteries: . DP/Radial pulses normal. Abdomen: Soft abdomen, nontender, nondistended without mass. Normal bowel sounds. Extremities: No clubbing or cyanosis. Mild +1 non pitting edema. Warm digits. Neurologic/Psychiatric: Oriented to person, place, time. Normal affect. No gross focal neurologic deficits. Lines, Drains, and Airways Line Peripheral Double Lumen 02/23/21 0515 Admissio (more content not included)... [facility]09-30-2021 NoteHNO ID: [id number] Author: Tameka Nj PA-C Service: Cardiovascular Surgery Author Type: Physician Sewage Screen Operator Type: Progress Notes Filed: 02/28/2021 10:29 AM Note Text: CARDIOTHORACIC SURGERY POSTOP PROGRESS NOTE SERVICE DATE: 02/28/2021 SERVICE TIME: 10:04 AM Subjective S/P SURGERY: Procedure(s) (LRB): BYPASS GRAFT ARTERY CORONARY ON-PUMP SINGLE CORONARY ARTERIAL GRAFT (N/A) BYPASS GRAFT ARTERY CORONARY ON-PUMP USING VENOUS GRAFT(S) AND ARTERIAL GRAFT(S); TWO VENOUS GRAFTS (N/A) ENDOSCOPIC HARVEST VEIN FOR CORONARY ARTERY BYPASS PROCEDURE (N/A) DATE OF SURGERY: 02/26/2021 POSTOP DAY #2 LOS: 5 HPI: This is a 80 year old man transferred from [facility] after left heart catheterization for evaluation of symptomatic severe multivessel CAD, for consideration of CABG. In October of this year he developed myalgias, fever, dyspnea, fatigue, dry cough, and loss of taste. He was admitted with acute hypoxic respiratory failure on the basis of multilobar pneumonia. He was diagnosed with Legionella pneumonia, complicated by acute renal insufficiency (creatinine 2.37) with evidence of sepsis (lactate level 3.8). He ruled out for Covid infection. CT of the chest showed dense consolidation in the posterior segment of the right upper lobe abutting the major fissure and patchy infiltrate in right lower lobe with a small right pleural effusion. Bronchoscopy with BAL was performed showing normal anatomy and no lesions. ? He has noted since that time he has had exertional dyspnea. He denies chest pressure, heaviness, burning, syncope, presyncope etc. Stress testing was performed in October which was abnormal, showing decreased perfusion status post stress in the distal inferolateral lateral apical segments; ejection fraction is 83%. 2D echo performed at that time showed normal left ventricular function with no valve abnormalities. Left heart catheterization demonstrated severe multivessel coronary disease including approximately 90% lesions in the proximal RCA, proximal LAD, and proximal circumflex. He has no previous history of heart attack. There is a vague history of cardiomyopathy in the past. Is undergone some sort of ablation at [facility] in the remote past but does not carry history of atrial fibrillation and has not been anticoagulated. There is a vague history of a positive rheumatologic work up, possible SLE. He had been on prednisone 60 mg daily, as of October, but is no longer on immunosuppression. INTERVAL EVENTS / PERTINENT ROS: On 02/26/2021, patient underwent CABG x3 with SPRINGER to LAD, saphenous vein graft to OM1, saphenous vein graft to PDA. He was transferred to CVICU in stable condition. Of note, hemoglobin A1c was 5.3. Home Synthroid has been resumed. Andrews catheter was removed. Patient was seen/examined in CVICU on postop day #2. He is getting ready to go for a walk. Chest tube output has been minimal overnight and will be removed today. RN reports low urine output and is requesting Flomax. Doe-Synephrine is being weaned off. He denied any pain or dyspnea. Denied lightheadedness or nausea. He has been working on his IS. He is in good spirits. Elevated HR overnight in the 120s when ambulating. Currently in the 90s. No a.fib. Objective Admission Weight: 73.7 kg (162 lb 6.4 oz) BP 123/66 Pulse 96 Temp 36.2 ?C (97.2 ?F) Resp 19 Ht 182.9 cm (6') Wt 86.3 kg (190 lb 4.1 oz) SpO2 94% BMI 25.80 kg/m? Body surface area is 2.09 meters squared. Min/Max/Average Temperature AND Blood Pressure: Temp (24hrs), Av.4 ?C (97.5 ?F), Min:36 ?C (96.8 ?F), Max:36.6 ?C (97.9 ?F) Systolic (24hrs), Av , Min:81 , Max:123 Diastolic (24hrs), Av, Min:62, Max:72 Intake/Output Summary (Last 24 hours) at 02/28/2021 1003 Last data filed at 02/28/2021 0800 Gross per 24 hour Intake 1613 ml Output 1610 ml Net 3 ml TELEMETRY: normal sinus rhythm/ST PHYSICAL EXAM: General: Resting. No acute distress. Up in chair HEENT: Normocephalic. Atraumatic Cardiovascular: Sternotomy incision clean, dry, intact. Heart is regular rate and rhythm Lungs: Clear to auscultation bilaterally Abdomen: Soft, nontender, nondistended, positive bowel sounds Extremities:1+ edema of lower extremities. No cyanosis or clubbing. Endoscopic saphenous vein harvest site is clean, dry, intact Musculoskeletal: Good strength throughout Neurologic: No focal deficits. Psychiatric: Normal affect Lines, Drains, and Airways Line Peripheral Double Lumen 02/23/21 0515 Admission to Hospital Short Left Forearm 22 Gauge 5 days Peripheral 02/24/21 0600 Assessment Short Right Forearm 20 Gauge 4 days Arterial Line/Sheath 02/26/21 0953 Left Radial 2 days Central Line Quadruple Lumen 02/26/21 Non-tunneled Right Neck 2 days Drain Chest Tube 02/26/21 Left Pleural 28 Fr Tube #2 2 days Chest Tube 02/26/21 Mediastinal 32 Fr Tube #1 2 days DATA: Diagnostic tests reviewed for today's (more content not included)...[facility]09-29-2021 NoteHNO ID: [id number] Author: Kishore Schwab MD Service: Critical Care Author Type: Physician Type: Progress Notes Filed: 02/27/2021 6:24 PM Note Text: MICU - PROGRESS NOTE SERVICE DATE: February 27, 2021 Admission Date: 02/23/2021 AGE: [age] year old LOS: 4 days Subjective Successfully extubated within time window last PM. Up in chair. No breathing complaints. SaO2 94% on 3l/min. 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, Acquired Arthralgia Esr Raised Crp Elevated Bart (Acute Kidney Injury) (Hcc) Dehydration Hypercalcemia Low Serum Parathyroid Hormone (Pth) Cad (Coronary Artery Disease) PAST MEDICAL HISTORY Diagnosis Date - Chronic cholecystitis - Essential hypertension, benign - Myalgia and myositis, unspecified - Other and unspecified hyperlipidemia PAST SURGICAL HISTORY Procedure Laterality Date - EXPLORATORY OF ABDOMEN Laparotomy, exp - LAPAROSCOPIC CHOLECYSTECTOMY 05/03/07 - PAST SURGICAL HISTORY OF back surgery - PAST SURGICAL HISTORY OF excision of kidney tumor Social History Tobacco Use - Smoking status: Never Smoker - Smokeless tobacco: Never Used Substance Use Topics - Alcohol use: No - Drug use: Not on file VITAL SIGNS (last 24hrs min/max): Temp Av.7 ?C (98 ?F) Min: 35.3 ?C (95.54 ?F) Max: 37.1 ?C (98.8 ?F) Pulse Av.1 Min: 56 Max: 121 Arterial BP 1 Min: 78/41 Max: 151/77 Cuff BP Min: 81/63 Max: 123/66 Pain Level: 0 Vital signs reviewed. BP 123/66 Pulse 88 Temp (Src) 96.8 (Temporal) Resp 11 Ht 6' 0 (1.83m) Wt 182 lb 8.7 oz (82.8kg) SpO2 94% BMI 24.75 kg/(m2). O2 Therapy: Nasal Cannula, Liters: 3 Temp (24hrs), Av.7 ?C (98 ?F), Min:35.3 ?C (95.54 ?F), Max:37.1 ?C (98.8 ?F) NET FLUID BALANCE Intake/Output Summary (Last 24 hours) at 02/27/2021 1816 Last data filed at 02/27/2021 1800 Gross per 24 hour Intake 3637 ml Output 2146 ml Net 1491 ml MEDICATIONS Current Facility-Administered Medications Medication Dose Route Frequency - lidocaine 4 % 1 Patch (SALONPAS) 1 Patch TRANSDERMAL DAILY And - lidocaine patch - REMOVE OTHER AT BEDTIME And - lidocaine - VERIFY PATCH OTHER q 8 H - fentaNYL 50 mcg/mL 25 mcg injection (SUBLIMAZE) 25 mcg INTRAVENOUS q 1 H PRN - polyethylene glycol 3350 17 g packet (MIRALAX, GLYCOLAX) 17 g ORAL DAILY - senna-docusate 8.6-50 mg 1 tablet (SENNA-S) 1 tablet ORAL BID - dextrose 50% in water 25 mL syringe 12.5 g INTRAVENOUS PRN - aspirin 162 mg chewable tab(s) 162 mg ORAL DAILY - potassium chloride iv piggyback 20 mEq/100 mL 20 mEq INTRAVENOUS PRN - magnesium sulfate in sterile water 2 g in sterile water 50 ml 2 g INTRAVENOUS PRN(NO DISPENSE) - enoxaparin 40 mg injection (LOVENOX) 40 mg SUBCUTANEOUS q 24 HR - sodium chloride 0.9 % (flush) 3-5 mL (BD POSIFLUSH) 3-5 mL INTRAVENOUS q 12 H - lactated ringers iv infusion 50 mL/hr INTRAVENOUS CONTINUOUS - albuterol 2.5 mg /3 mL (0.083 %) 2.5 mg (PROVENTIL) 2.5 mg INHALATION q 2 H PRN - PHENYLephrine iv infusion 10 mg in NaCl 0.9% 250 mL (DOE-SYNEPHRINE) 0-100 mcg/min INTRAVENOUS CONTINUOUS - aztreonam 2 g in D5W 100 mL MB+ (AZACTAM) 2 g INTRAVENOUS q 12 HR - rosuvastatin 20 mg tab(s) (CRESTOR) 20 mg ORAL AT BEDTIME - pantoprazole 40 mg injection (PROTONIX) 40 mg INTRAVENOUS DAILY (6 AM) - ondansetron (PF) 4 mg injection (ZOFRAN) 4 mg INTRAVENOUS q 6 H PRN - acetaminophen 1,000 mg tab(s) (TYLENOL) 1,000 mg ORAL q 6 H - magnesium oxide 400 mg tab(s) (MAG-OX) 400 mg ORAL DAILY - traMADol 50-100 mg tab(s) (ULTRAM) 50-100 mg ORAL q 6 H PRN - vancomycin iv piggyback 1 g in D5W 200 mL (VANCOCIN) 1 g INTRAVENOUS q 24 HR - levothyroxine 75 mcg tab(s) (SYNTHROID) 75 mcg ORAL DAILY (6 AM) Lines, Drains, and Airways Line Peripheral Double Lumen 02/23/21 0515 Admission to Hospital Short Left Forearm 22 Gauge 4 days Peripheral 02/24/21 0600 Assessment Short Right Forearm 20 Gauge 3 days Arterial Line/Sheath 02/26/21 0953 Left Radial 1 day Central Line Quadruple Lumen 02/26/21 Non-tunneled Right Neck 1 day Drain Chest Tube 02/26/21 Left Pleural 28 Fr Tube #2 1 day Chest Tube 02/26/21 Mediastinal 32 Fr Tube #1 1 day PHYSICAL EXAM PERFORMED: General: no acute distress ENT: No thrush. Grade II airway. Neck: No JVD. +Right IJV TLC. Cardiovascular: Regular rhythm Respiratory: Clear to auscultation and decreased in the bases. Serosanguinous drainage from chest tubes. Abdomen: Soft, Nontender and Positive bowel sounds Extremities: Edema- No Neurologic: Awake, oriented, Alert, Follows commands and Moving all extremities Respiratory/Nursing Documentation: O2 Therapy: Nasal Cannula (02/27/21 1800) Invasive Ventilator Mode: Synchronized Intermittent Mandatory Ventilation (02/26/21 1513) Set Ventilator Respiratory Rate (BPM): 12 (more content not included)...[facility]09-29-2021 NoteHNO ID: [id number] Author: Bindu Sheehan PA-C Service: Cardiovascular Surgery Author Type: Physician Sewage Screen Operator Type: Progress Notes Filed: 02/27/2021 9:41 AM Note Text: CARDIOTHORACIC SURGERY POSTOP PROGRESS NOTE SERVICE DATE: 02/27/2021 SERVICE TIME: 8:52 AM Subjective S/P SURGERY: Procedure(s) (LRB): BYPASS GRAFT ARTERY CORONARY ON-PUMP THREE CORONARY ARTERIAL GRAFTS (N/A) DATE OF SURGERY: 02/26/2021 POSTOP DAY #1 LOS: 4 HPI:??This is a 80 year old male with hx of HTN, cardiomyopathy, HL,?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 ? He reported that he got the first Moderna Covid shot in August subsequently ended up feeling short of breath achy and subsequently ended up admitted over at [place] spent 9 days in 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 He did follow up with the JUNBerny covid vaccination. He states ever since that time he is never felt 100% better he has had ongoing and persistent shortness of breath for several months he is never described any chest pain he describes the shortness of breath more with any type of exertion simply walking to the mailbox and back he would [place] will cause him some generalized dyspnea he denies any recent travel surgeries no history of blood clots in his legs or lungs. He was scheduled have a stress test previously but because of the pneumonia and admission it was placed at a later date until recently where he had an abnormal stress test. EF 83%. He was thus scheduled for a cardiac cath 02/22. ?He did undergo cardiac cath in [place] (Dr. Michelle), with results as follow: ? INTERVAL EVENTS / PERTINENT ROS: On 02/26/21 he underwent successful CABG x 3, and was transferred to the CVICU without incidence. He was extubated slowly, but still under the 6 hour cindy. On exam this am, he is slightly tired and hurts but otherwise states he's doing ok, examination he is sitting at bedside in the chair, daughter at bedside. Denies any significant pain, sob, lightheaded or dizziness. Drinking fluids, not much of an appetite, labs an images were reviewed. Nursing reports no events overnight, other than occasional PVCs and a run of 9 PVCs. His CVP this am was low around 7, initial discussion with nursing was to provide fluid bolus of 500cc saline. Objective Admission Weight: 73.7 kg (162 lb 6.4 oz) BP 99/70 Pulse 86 Temp 36.6 ?C (97.88 ?F) ([employer] Thermistor) Resp 12 Ht 182.9 cm (6') Wt 82.8 kg (182 lb 8.7 oz) SpO2 95% BMI 24.76 kg/m? Body surface area is 2.05 meters squared. Min/Max/Average Temperature AND Blood Pressure: Temp (24hrs), Av.4 ?C (97.5 ?F), Min:35 ?C (95 ?F), Max:37.1 ?C (98.8 ?F) Systolic (24hrs), Av , Min:71 , Max:173 Diastolic (24hrs), Av, Min:57, Max:119 Intake/Output Summary (Last 24 hours) at 02/27/2021 0852 Last data filed at 02/27/2021 0700 Gross per 24 hour Intake 6565 ml Output 2166 ml Net 4399 ml TELEMETRY: normal sinus rhythm PHYSICAL EXAM: General: Well developed and well nourished appearance. No acute distress. Conversant sitting upright Skin: No rash on chest, arms or legs. Warm, dry. Slight pallor, sternal incision dry, joaquim wrap left leg has some dry drainage, incision site is not actively draining currently Head/Eyes: Sclera clear, normal conjunctiva. EOMI. Neck: No JVD. Supple. Central line in place right side, trachea midline, no masses Lungs: Normal respiratory effort. Clear lungs without rhonchi, rales, wheezing. Diminished in bases, no accessory muscle use Heart: Normal PMI. Regular rate and rhythm. Normal S1, S2. No murmurs. No rubs. Peripheral Vascular/Arteries:DP/Radial pulses normal. Abdomen: Soft abdomen, nontender, nondistended without mass. Normal bowel sounds. Extremities: No clubbing or cyanosis. No edema. Warm digits. Neurologic/Psychiatric: Oriented to person, place, time. Normal affect. No gross focal neurologic deficits. Lines, Drains, and Airways Line Peripheral Double Lumen 02/23/21 0515 Admission to Hospital Short Left Forearm 22 Gauge 4 days Peripheral 02/24/21 0600 Assessment Short Right Forearm 20 Gauge 3 days Central Line Quadruple Lumen 02/26/21 Non-tunneled Right Neck 1 day Arterial Line/Sheath 02/26/21 0953 Left Radial <1 day Drain Chest Tube 02/26/21 Left Pleural 28 Fr Tube #2 1 day Chest Tube 02/26/21 Mediastinal 32 Fr Tube #1 1 day Indwelling Urinary Catheter 02/26/21 1000 Temperature Monitoring 16 Fr <1 day DATA: Diagnostic tests reviewed for today's visit: Chest X-RAY: Status post extubation. Postextubation atelectasis at the lung bases. Recent Labs 02/27/21 0526 02/27/21 0010 02/26/21 1958 02/26/21 1508 02/26/21 1442 02/26/21 0327 02/25/21 0310 02/25/21 0310 02/24/21 1538 RBC 2.74* -- -- -- 3.15* 3.75* < > 4.21 -- W (more content not included)...[facility]09-28-2021 NoteHNO ID: [id number] Author: Lisseth Navarrete RPh Service: Pharmacy Author Type: Pharmacist Type: Progress Notes Filed: 02/26/2021 7:00 PM Note Text: Pharmacy Consult Agreement: Renal Dose Adjustment Patient Name: Kulwant Andrade Service Date: 02/26/2021 Service Time: 6:59 PM The following changes have been made to the patient's medication therapy as part of the pharmacy consult agreement. Estimated CrCl: Estimated Creatinine Clearance: 60.4 mL/min (based on SCr of 1.06 mg/dL). Current Therapy: Vancomycin 1g every 12 hours x 3 doses New Therapy: Vancomycin 1g every 24 hours x 2 doses as patient is 80 years and CrCL = 60.4 ml/min. Thank you for allowing me to participate in the care for this patient. Signature: Lisseth Navarrete [facility] Pager/Extension: [phone] [facility]09-28-2021 NoteHNO ID: [id number] Author: Emily Ray APRN.RETAIL KEY HOLDER Service: Anesthesiology Author Type: Nurse Freight Agent Type: Anesthesia Procedure Notes Filed: 02/26/2021 10:31 AM Note Text: ANESTHESIOLOGY PROCEDURE NOTE Airway General Information Procedure Start Time/Medication Administration: 02/26/2021 9:58 AM Patient location during procedure: OR Staffing Anesthesiologist: Rodrigo Rubin DO SRNA: OLAMIDE Farah Performed by: OLAMIDE Indications and Patient Condition Preoxygenated: yes Patient position: sniffing Difficult Mask: No Indications for airway management: anesthesia anesthesia circuit Method: sleep Final Airway Details Final airway type: endotracheal airway Final Endotracheal Airway: ETT Cuffed: yes Successful intubation technique: direct laryngoscopy Endotracheal tube insertion site: oral Blade: Fela Blade size: #4 ETT size (mm): 8.0 Measured from: lips Measurement (cm): 23 Placement verified by: capnometry Cormack-Lehane Classification: grade I - full view of glottis Number of attempts at approach: 1 Airway not difficult SIGNATURE: Emily Ray APRN.RETAIL KEY HOLDER PATIENT NAME: Kulwant Andrade DATE: February 26, 2021 TIME: 10:26 AM CSN: [id number] [facility]09-28-2021 NoteHNO ID: [id number] Author: Emily Ray APRN.CRNA Service: Anesthesiology Author Type: Nurse Freight Agent Type: Anesthesia Procedure Notes Filed: 02/26/2021 10:17 AM Note Text: ANESTHESIOLOGY PROCEDURE NOTE A-Line General Information Procedure Start Time/Medication Administration: 02/26/2021 9:53 AM Patient location during procedure: OR Timeout Performed Pre-procedure: timeout performed Indication: continuous blood pressure monitoring Staffing Anesthesiologist: Rodrigo Rubin DO RETAIL KEY HOLDER: Emily Ray APRN.RETAIL KEY HOLDER SRNA: OLAMIDE Chu Performed by: OLAMIDE Preparation Sterility Preparation: hand hygiene performed prior to procedure, surgical cap used, mask used, sterile drape used during line insertion, skin prep agent completely dried prior to procedure Sterility Technique Not Completely Performed Due to Extreme Emergency: No Site Prep: Chloraprep Procedure Details Catheter Size: 20 G Catheter Length: 1.75 in Micropuncture Kit Used: No Guidewire Used: Yes Guidewire Removed Intact: YesLaterality: left Site: radial artery Ultrasound Guided: NoLine Secured: Tegaderm and occlusive biodressing Events Events: patient tolerated procedure well with no complications SIGNATURE: Emily Ray APRN.CRNA PATIENT NAME: Kulwant Andrade DATE: February 26, 2021 TIME: 10:17 AM CSN: [id number] Psych[facility] Center09-27-2021 NoteHNO ID: [id number] Author: Nu Bello DO Service: Hospital Medicine Author Type: Physician Type: Progress Notes Filed: 02/25/2021 7:04 PM Note Text: DEPARTMENT OF HOSPITAL MEDICINE PROGRESS NOTE SERVICE DATE: 02/23/2021 SERVICE TIME: 7:21 PM Hospital Medicine/Primary Attending: Nu Bello DO NIGHT AND WEEKEND COVERAGE: [place] COVERAGE: After 7pm, please call cross cover pager #[phone] Subjective Patient feels well today. Denies CP, shortness of breath, n/v, abdominal pain, diarrhea, fevers/chills INTERVAL HPI: 80 y/o male admitted to hospital after left heart cath showing triple vessel disease, admitted for CABG. Cardiology and CT surgery following. Currently on heparin drip. Plan for OR tomorrow MEDICATIONS: Reviewed Objective PHYSICAL EXAM: BP 129/76 Pulse 63 Temp (Src) 98.2 (Oral) Resp 18 Ht 6' 0 (1.83m) Wt 163 lb 12.8 oz (74.3kg) SpO2 93% BMI 22.21 kg/(m2). O2 Therapy: Room Air Physical Exam Performed GENERAL: Alert, no distress, cooperative SKIN: Skin color, texture, turgor normal. No rashes or lesions. EYES: PERRLA, EOMI OROPHARYNX: Lips, mucosa, and tongue normal. Teeth and gums normal. Oropharynx normal. LUNGS: Lungs clear to auscultation, Good diaphragmatic excursion CARDIAC: Normal S1 and S2; no rubs, murmurs, or gallops ABDOMEN: Abdomen soft, non-tender, BS normal, No masses or organomegaly EXTREMITIES: Extremities normal, no deformities, edema, clubbing or skin discoloration. Good capillary refill., No ulcers PULSES: 2+ radial, 2+ posterial tibial Lines, Drains, and Airways Line Peripheral Double Lumen 02/23/21 0515 Admission to Hospital Short Left Forearm 22 Gauge 2 days Peripheral 02/24/21 0600 Assessment Short Right Forearm 20 Gauge 1 day Reviewed lines and needs to be continued: REASONS: Heparin infusion DATA: Diagnostic tests reviewed for today's visit: Most recent labs and imaging results. Assessment/Plan Principal Problem: #CAD (coronary artery disease)- Triple vessel disease, currently CP free Assessment AND Plan: -CT surgery following, ordered workup -Heparin #HTN -lopressor -lisinopril -hold AM of surgery #HLD -atorvastatin #Hypothyroid -continue synthroid Resolved Problems: * No resolved hospital problems. * Medication and Non-Pharmacologic VTE Prophylaxis/Anticoagulants Anticoagulant AND Antiplatelet Medications (From admission, onward) Start Dose Route Frequency Last Action Ordered Stop 02/25/21 09 aspirin 81 mg chewable tab(s) 81 mg ORAL DAILY Given, 02/25 0939 02/25/21 0858 -- 02/23/21 06 heparin iv infusion (LOW DOSE ACS/NOMOGRAM) 25,000 units in NaCl 0.45% 250 mL PREMIX (Heparin Infusion + Rate Change Bolus) 0-30 mL/hr 0-3,000 Units/hr INTRAVENOUS CONTINUOUS New Bag/Syringe/Bottle, 02/25 1148 02/23/21 0554 02/26/21 0600 02/23/21 0700 vte current anticoag therapy ([place]) 02/23/21 0700 activity - mobilize patient ([place]) VTE Prophylaxis: currently on heparin drip Disposition: Home Plan of care discussed with: Provider, RN, Patient SIGNATURE: Nu Bello DO PATIENT NAME: Kulwant Andrade DATE: February 05, 2021 TIME: 7:04 PM etx [id number] Psych[facility] Center09-27-2021 NoteHNO ID: [id number] Author: Kirby Izquierdo APRN.SYNCHRONOUS MOTOR ASSEMBLER Service: Cardiovascular Surgery Author Type: Nurse Practitioner Type: Plan of Care Filed: 02/25/2021 11:07 AM Note Text: CARDIOTHORACIC SURGERY PLAN OF CARE SERVICE DATE: February 25, 2021 SERVICE TIME: 8:59 AM Patient is visited today. I offered the cardiac surgery binder with content reviewed briefly with patient. I went over post-op recovery expectations (ICU, [id number] then home recovery with patient. For pre-op lung function optimization, patient is offered IS. Nutrition consult is placed per ERAS protocol. Pre-op check list review performed: still missing Type and screen. Communicated with nursing staff to make sure it is done today for surgery tomorrow. Pre-op preparation orders placed, including: NPO, meds(BB, ASA, Tylenol ), heparin stop time, CHG bath. MRSA result reviewed and treatment order reviewed, blood products ordered x2. Questions and concerns are addressed and emotional support provided. Patient has no questions at this point. CTVS Surgery Pre-Op Open Heart Check List Patient Info: Kulwant Andrade 1940 80 year old STS RISK SCORE: 1.102% Pre-Op Testing: LABS: CHEMISTRY Sodium (mmol/L) Date Value 02/25/2021 140 02/24/2021 141 02/23/2021 142 11/12/2020 142 10/18/2020 141 10/08/2020 142 Chloride (mmol/L) Date Value 02/25/2021 106 02/24/2021 107 02/23/2021 107 11/12/2020 108 10/18/2020 107 10/08/2020 104 CO2 (mmol/L) Date Value 02/25/2021 23 02/24/2021 24 02/23/2021 24 11/12/2020 20 10/18/2020 22 10/08/2020 25 BUN (mg/dL) Date Value 02/25/2021 19 02/24/2021 18 02/23/2021 17 11/12/2020 44 10/18/2020 61 10/08/2020 41 Creatinine (mg/dL) Date Value 02/25/2021 1.24 02/24/2021 1.06 02/23/2021 1.02 11/12/2020 1.54 10/18/2020 2.03 10/08/2020 1.82 Glucose (mg/dL) Date Value 02/25/2021 92 02/24/2021 96 02/23/2021 96 11/12/2020 191 10/18/2020 93 10/08/2020 99 Ionized Calcium (mmol/L) Date Value 10/18/2020 1.34 10/08/2020 1.37 Magnesium (mg/dL) Date Value 02/25/2021 2.1 02/23/2021 2.0 Phosphorus (mg/dL) Date Value 11/12/2020 3.4 10/08/2020 3.8 Protein, Total (g/dL) Date Value 02/23/2021 6.2 10/02/2020 6.8 Calcium (mg/dL) Date Value 11/12/2020 8.9 10/18/2020 9.3 10/08/2020 10.2 Calcium, Total (mg/dL) Date Value 02/25/2021 9.0 02/24/2021 8.9 02/23/2021 8.9 Bilirubin, Total (mg/dL) Date Value 02/23/2021 0.8 10/02/2020 0.5 Alkaline Phosphatase (U/L) Date Value 02/23/2021 62 10/02/2020 66 ALT (U/L) Date Value 02/23/2021 9 10/02/2020 15 AST (U/L) Date Value 02/23/2021 12 10/02/2020 15 Anion Gap (mmol/L) Date Value 02/25/2021 11 02/24/2021 10 02/23/2021 11 11/12/2020 14 10/18/2020 12 10/08/2020 13 Lipid Panel Cholesterol, Total Date Value Ref Range Status 02/23/2021 256 (H) <200 mg/dL Final Comment: <200 mg/dL, Desirable 200-239 mg/dL, Borderline high >239 mg/dL, High HDL Cholesterol Date Value Ref Range Status 02/23/2021 42 >39 mg/dL Final Comment: 40-59 mg/dL, Acceptable >59 mg/dL, High: Negative risk factor for coronary heart disease <40 mg/dL, Low: Positive risk factor for coronary heart disease LDL Cholesterol Date Value Ref Range Status 02/23/2021 176 (H) <100 mg/dL Final Comment: <100 mg/dL, Optimal 100-129 mg/dL, Near optimal/above optimal 130-159 mg/dL, Borderline high 160-189 mg/dL, High >189 mg/dL, Very high Secondary prevention optimal LDL Cholesterol levels are recommended to be < 70 mg/dL Triglyceride Date Value Ref Range Status 02/23/2021 191 (H) <150 mg/dL Final Comment: <150 mg/dL, Normal 150-199 mg/dL, Borderline high 200-499 mg/dL, High >499 mg/dL, Very high NT Pro BNP No results found for: PBNP ENDOCRINE Hemoglobin A1C (%) Date Value 02/23/2021 5.3 Lab Results Component Value Date TSH 3.380 02/23/2021 HEMATOLOGY RBC (m/uL) Date Value 02/25/2021 4.21 02/24/2021 4.24 02/23/2021 4.22 11/12/2020 4.05 10/08/2020 4.66 10/02/2020 4.27 Hemoglobin (g/dL) Date Value 02/25/2021 13.2 02/24/2021 13.0 02/23/2021 13.3 11/12/2020 12.7 10/08/2020 14.6 10/02/2020 13.3 Hematocrit (%) Date Value 02/25/2021 40.0 02/24/2021 40.2 02/23/2021 40.1 11/12/2020 38.5 10/08/2020 45.1 10/02/2020 40.5 WBC (k/uL) Date Value 02/25/2021 6.66 02/24/2021 5.65 02/23/2021 6.93 11/12/2020 11.41 10/08/2020 6.55 10/02/2020 7.88 Platelet Count (k/uL) Date Value 02/25/2021 260 02/24/2021 243 02/23/2021 245 11/12/2020 271 10/08/2020 512 10/02/2020 354 COAGULATION PT Sec Date Value Ref Range Status 02/23/2021 10.7 9.7 - 13.0 sec Final INR Date Value Ref Range Status 02/23/2021 1.0 0.9 - 1.3 Final Comment: Vitamin K Antagonist (VKA) Therapeutic Range: INR 2 to 3 (Target INR of 2.5) Note: For patients treated with VKA drugs, such as warfarin, the [place] C (more content not included)...[facility]09-26-2021 NoteHNO ID: [id number] Author: Nu Bello DO Service: Hospital Medicine Author Type: Physician Type: Progress Notes Filed: 02/24/2021 6:50 PM Note Text: DEPARTMENT OF HOSPITAL MEDICINE PROGRESS NOTE SERVICE DATE: 02/23/2021 SERVICE TIME: 7:21 PM Hospital Medicine/Primary Attending: Nu Bello DO NIGHT AND WEEKEND COVERAGE: [place] COVERAGE: After 7pm, please call cross cover pager #[phone] Subjective Patient feels well today. Denies CP, shortness of breath, n/v, abdominal pain, diarrhea, fevers/chills INTERVAL HPI: 80 y/o male admitted to hospital after left heart cath showing triple vessel disease, admitted for CABG. Cardiology and CT surgery following. Currently on heparin drip. MEDICATIONS: Reviewed Objective PHYSICAL EXAM: BP 148/94 Pulse 67 Temp (Src) 97.9 (Oral) Resp 18 Ht 6' 0 (1.83m) Wt 161 lb 9.6 oz (73.3kg) SpO2 96% BMI 21.91 kg/(m2). O2 Therapy: Room Air Physical Exam Performed GENERAL: Alert, no distress, cooperative SKIN: Skin color, texture, turgor normal. No rashes or lesions. EYES: PERRLA, EOMI OROPHARYNX: Lips, mucosa, and tongue normal. Teeth and gums normal. Oropharynx normal. LUNGS: Lungs clear to auscultation, Good diaphragmatic excursion CARDIAC: Normal S1 and S2; no rubs, murmurs, or gallops ABDOMEN: Abdomen soft, non-tender, BS normal, No masses or organomegaly EXTREMITIES: Extremities normal, no deformities, edema, clubbing or skin discoloration. Good capillary refill., No ulcers PULSES: 2+ radial, 2+ posterial tibial Lines, Drains, and Airways Line Peripheral Double Lumen 02/23/21 0515 Admission to Hospital Short Left Forearm 22 Gauge 1 day Peripheral 02/24/21 0600 Assessment Short Right Forearm 20 Gauge <1 day Reviewed lines and needs to be continued: REASONS: Heparin infusion DATA: Diagnostic tests reviewed for today's visit: Most recent labs and imaging results. Assessment/Plan Principal Problem: #CAD (coronary artery disease)- Triple vessel disease, currently CP free Assessment AND Plan: -CT surgery following, ordered workup -Heparin #HTN -lopressor -lisinopril #HLD -atorvastatin #Hypothyroid -continue synthroid Resolved Problems: * No resolved hospital problems. * Medication and Non-Pharmacologic VTE Prophylaxis/Anticoagulants Anticoagulant AND Antiplatelet Medications (From admission, onward) Start Dose Route Frequency Last Action Ordered Stop 02/23/21 06 heparin iv infusion (LOW DOSE ACS/NOMOGRAM) 25,000 units in NaCl 0.45% 250 mL PREMIX (Heparin Infusion + Rate Change Bolus) 0-30 mL/hr 0-3,000 Units/hr INTRAVENOUS CONTINUOUS Rate Verify, 02/24 1614 02/23/21 0554 -- 02/23/21 0700 vte current anticoag therapy ([place] 02/23/21 0700 activity - mobilize [place] ([place] VTE Prophylaxis: currently on heparin drip Disposition: Home Plan of care discussed with: Provider, RN, Patient SIGNATURE: Nu Bello DO PATIENT NAME: Kulwant Andrade DATE: February 24, 2021 TIME: 6:49 PM etx [id number] Psychiatric Center09-25-2021 NoteHNO ID: [id number] Author: Nu Bello DO Service: Hospital Medicine Author Type: Physician Type: Progress Notes Filed: 02/23/2021 7:35 PM Note Text: DEPARTMENT OF HOSPITAL MEDICINE PROGRESS NOTE SERVICE DATE: 02/23/2021 SERVICE TIME: 7:21 PM Hospital Medicine/Primary Attending: Nu Bello, NIGHT AND WEEKEND COVERAGE: [place] COVERAGE: After 7pm, please call cross cover pager #[phone] Subjective Patient feels well today. Denies CP, shortness of breath, n/v, abdominal pain, diarrhea, fevers/chills INTERVAL HPI: 80 y/o male admitted to hospital after left heart cath showing triple vessel disease, admitted for CABG. Cardiology and CT surgery following. Currently on heparin drip. MEDICATIONS: Reviewed Objective PHYSICAL EXAM: BP 137/85 Pulse 69 Temp (Src) 98.2 (Oral) Resp 18 Ht 6' 0 (1.83m) Wt 162 lb 6.4 oz (73.7kg) SpO2 95% BMI 22.02 kg/(m2). O2 Therapy: Room Air Physical Exam Performed GENERAL: Alert, no distress, cooperative SKIN: Skin color, texture, turgor normal. No rashes or lesions. EYES: PERRLA, EOMI OROPHARYNX: Lips, mucosa, and tongue normal. Teeth and gums normal. Oropharynx normal. LUNGS: Lungs clear to auscultation, Good diaphragmatic excursion CARDIAC: Normal S1 and S2; no rubs, murmurs, or gallops ABDOMEN: Abdomen soft, non-tender, BS normal, No masses or organomegaly EXTREMITIES: Extremities normal, no deformities, edema, clubbing or skin discoloration. Good capillary refill., No ulcers PULSES: 2+ radial, 2+ posterial tibial Lines, Drains, and Airways Line Peripheral Double Lumen 02/23/21 0515 Admission to Hospital Short Left Forearm 22 Gauge <1 day Reviewed lines and needs to be continued: REASONS: Heparin infusion DATA: Diagnostic tests reviewed for today's visit: Most recent labs and imaging results. Assessment/Plan Principal Problem: #CAD (coronary artery disease)- Triple vessel disease, currently CP free Assessment AND Plan: -CT surgery following, ordered workup -Cardiology following -Heparin #HTN -lopressor -lisinopril #HLD -hx of statin intolerance -atorvastatin #Hypothyroid -continue synthroid Resolved Problems: * No resolved hospital problems. * Medication and Non-Pharmacologic VTE Prophylaxis/Anticoagulants Anticoagulant AND Antiplatelet Medications (From admission, onward) Start Dose Route Frequency Last Action Ordered Stop 02/23/21 0600 heparin iv infusion (LOW DOSE ACS/NOMOGRAM) 25,000 units in NaCl 0.45% 250 mL PREMIX (Heparin Infusion + Rate Change Bolus) 0-30 mL/hr 0-3,000 Units/hr INTRAVENOUS CONTINUOUS New Bag/Syringe/Bottle, 02/23 1654 02/23/21 0554 -- 02/23/21 0700 vte current anticoag therapy ([place]) 02/23/21 0700 activity - mobilize patient ([place]) VTE Prophylaxis: currently on heparin drip Disposition: Home Plan of care discussed with: Provider, RN, Patient SIGNATURE: Nu Bello DO PATIENT NAME: Kulwatn Andrade DATE: February 23, 2021 TIME: 7:21 PM etx [id number] Psychiatric Center09-01-2021 Evaluation note* Diagnosis Onset Date Resolution Status 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, acute Postoperative atrial fibrillation acute Essential hypertension chron ic Hyperlipidemia chronic 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, acute Postoperative atrial fibrillation acute Essential hypertension chron ic Hyperlipidemia [facility] Work Phone: 1(503) 505-618809-01-2021 Evaluation note* Diagnosis Onset Date Resolution Status 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, acute Postoperative atrial fibrillation acute Essential hypertension chron ic Hyperlipidemia chronic 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 Diminished pulses in lower extremity acute History of coronary artery bypass graft x January, acute Myalgia acute Postoperative atrial fibrillation acute Essential hypertension chron ic Hyperlipidemia [facility] Work Phone: 1(216) 223-751309-01-2021 Evaluation note* Diagnosis Onset Date Resolution Status 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 Diminished pulses in lower extremity acute History of coronary artery bypass graft x January, acute Myalgia acute Postoperative atrial fibrillation acute Essential hypertension chron ic Hyperlipidemia [facility] Work Phone: 1([phone]) 417-317209-01-2021 Evaluation note* Diagnosis Onset Date Resolution Status 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, acute Postoperative atrial fibrillation acute Essential hypertension chron ic Hyperlipidemia chronic History of coronary artery bypass graft x January, acute Postoperative atrial fibrillation acute Essential hypertension chron ic Hyperlipidemia [facility] Work Phone: [phone]) 668-505509-01-2021 Evaluation note* Diagnosis Onset Date Resolution Status 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, acute Postoperative atrial fibrillation acute Essential hypertension chron ic Hyperlipidemia chronic History of coronary artery bypass graft x January, acute Postoperative atrial fibrillation acute Essential hypertension chron ic Hyperlipidemia chronic Edema acute History of coronary artery bypass graft x January, acute Postoperative atrial fibrillation acute Essential hypertension chron ic Hyperlipidemia [facility] Work Phone: [phone]) 498-739909-01-2021 Evaluation note* Diagnosis Onset Date Resolution Status Edema acute History of coronary artery bypass graft x January, acute Postoperative atrial fibrillation acute Essential hypertension chron ic Hyperlipidemia chronic History of coronary artery bypass graft x January, acute Postoperative atrial fibrillation acute Essential hypertension chron ic Hyperlipidemia [facility] Work Phone: [phone]) 618-143409-01-2021 Evaluation note* Diagnosis Onset Date Resolution Status History of coronary artery bypass graft x January, acute Postoperative atrial fibrillation acute Essential hypertension chron ic Hyperlipidemia [facility] Work Phone: [phone]) 918-743509-01-2021 Evaluation note* Diagnosis Onset Date Resolution Status Dyspnea on exertion acute History of coronary artery bypass graft x January, acute Chronic kidney disease chron ic Essential hypertension chron ic Hyperlipidemia [facility] Work Phone: [phone] 117-642909-01-2021 Evaluation note* Diagnosis Onset Date Resolution Status Chronic kidney disease chron ic Dyspnea on exertion chronic Essential hypertension chron ic History of coronary artery bypass graft x January, chronic Hyperlipidemia chronic Chronic kidney disease chron ic Dyspnea on exertion chronic Essential hypertension chron ic History of coronary artery bypass graft x January, chronic Hyperlipidemia [facility] Work Phone: [phone]) 654-920809-01-2021 Evaluation note* Diagnosis Onset Date Resolution Status Chronic kidney disease chron ic Dyspnea on exertion chronic Essential hypertension chron ic History of coronary artery bypass graft x January, chronic Hyperlipidemia chronic Chronic kidney disease chron ic Dyspnea on exertion chronic Essential hypertension chron ic History of coronary artery bypass graft x January, chronic Hyperlipidemia chronic Essential hypertension chron ic History of coronary artery bypass graft x January, chronic Hyperlipidemia [facility] Work Phone: [phone]) 443-629509-01-2021 Evaluation note* Diagnosis Onset Date Resolution Status Essential hypertension chron ic History of coronary artery bypass graft x January, chronic Hyperlipidemia [facility] Work Phone: [phone]) [phone] Evaluation note* Diagnosis Onset Date Resolution Status Essential hypertension chron ic History of coronary artery bypass graft x January, chronic Hyperlipidemia chronic Essential hypertension chron ic History of coronary artery bypass graft x January, chronic Hyperlipidemia [facility] Work Phone: [phone]) 446-910809-01-2021 Evaluation note* Diagnosis Onset Date Resolution Status Essential hypertension chron ic History of coronary artery bypass graft x January, chronic Hyperlipidemia chronic 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 Dysarthria acute Stroke acute Essential hypertension chron ic Hyperlipidemia [facility] Work Phone: [phone] Evaluation note* Diagnosis Onset Date Resolution Status Essential hypertension chron ic History of coronary artery bypass graft x January, chronic Hyperlipidemia chronic 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 Dysarthria acute Stroke acute Essential hypertension chron ic Hyperlipidemia chronic ABLA (acute blood loss anemia) acute Acute upper gastrointestinal bleeding acute Anticoagulated by anticoagulation treatment acute Bilateral pulmonary embolism acute GI bleed acute [facility] Work Phone: [phone] Evaluation note* Diagnosis Onset Date Resolution Status History of coronary artery bypass graft x January, chronic Dysarthria acute ABLA (acute blood loss anemia) acute Acute upper gastrointestinal bleeding acute Anticoagulated by anticoagulation treatment acute Bilateral pulmonary embolism acute GI bleed acute Bilateral pulmonary embolism acute S/P insertion of IVC (inferior vena caval) filter acute [facility] Work Phone: [phone]) 441-449406-14-2021 NoteHNO ID: [id number] Author: Sofiya Song APRN.SYNCHRONOUS MOTOR ASSEMBLER Service: ? Author Type: Nurse Practitioner Type: Progress Notes Filed: 11/12/2020 3:47 PM Note Text: [facility] SERVICE DATE: 11/11/2020 SERVICE TIME: 7:43 PM REASON FOR CONSULT: I am asked to see this patient in consultation for my opinion regarding BART. My recommendations will be communicated by way of shared medical record, fax, or mail. REQUESTING PHYSICIAN: Javi Bates MD PRIMARY CARE PHYSICIAN: Javi Bates MD CHIEF COMPLAINT: BART HPI: Mr. 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 Done [facility]. Prior resident program specialist: none Creatinine has been abnormal since September 2020. Most recently creatinine ranging from 1.8-2.0 Proteinuria; no sample on file Hematuria: reports he has been told he has microscopic hematuria- saw urology in past and was told cystoscopy was negative. Current BP medications: Amlodipine 10 mg daily; lisinopril 20 mg daily; Spironolactone 25 mg once daily Diabetic: No HTN: yes, since . NSAIDs: Was taking it 1-2 x day for bilateral hip pain / Moderna vaccination; Started in July. Not taking anymore. Stopped about 6 weeks ago. No excessive use prior to this. Supplements currently being taken:vitamin D Hx of kidney stones: yes x1 Hx of chronic UTIs: none Family Hx of kidney disease: dtr has medullary sponge Daily fluids: 2-3 bottles of 16 oz water Pt on prednisone since Moderna vaccines. Advised to take it for couple months due to SE arthralgias (suspected PMR) from first vaccine of Moderna. Was advised not to get 2nd vaccine. Has an appt with rheum on 11/24. Pt states he has had SOB and has cardiology appt next month to see if he needs cardiac cath. CT of chest with contrast done last Wed by cardiology. No issues with urination. Denies dysuria; Has noticed BPs been being lower since being on prednisone, which surprises him since he knows the medication can raise BP. PAST MEDICAL HISTORY: PAST MEDICAL HISTORY Diagnosis Date - Chronic cholecystitis - Essential hypertension, benign - Myalgia and myositis, unspecified - Other and unspecified hyperlipidemia PAST SURGICAL HISTORY: PAST SURGICAL HISTORY Procedure Laterality Date - EXPLORATORY OF ABDOMEN Laparotomy, exp - LAPAROSCOPIC CHOLECYSTECTOMY 05/03/07 - PAST SURGICAL HISTORY OF back surgery - PAST SURGICAL HISTORY OF excision of kidney tumor FAMILY HISTORY: FAMILY HISTORY Problem Relation Age of Onset - Breast Cancer Sister x3 - Cancer Sister x2 lung - Cancer Brother appendix SOCIAL HISTORY: reports that he has never smoked. He has never used smokeless tobacco. He reports that he does not drink alcohol. PMH, PSH, FH, SH reviewed MEDICATIONS: acetaminophen/diphenhydramine (TYLENOL PM EXTRA STRENGTH ORAL) Take 2 tablets by mouth as needed. predniSONE (DELTASONE) 20 mg tablet 3 tabs a day by mouth daily Cholecalciferol, Vitamin D3, 125 mcg (5,000 unit) cap Take 5,000 Units by mouth once daily. spironolactone (ALDACTONE) 25 mg tablet Take 25 mg by mouth once daily. amLODIPine (NORVASC) 10 mg tablet Take 10 mg by mouth once daily. omeprazole (PRILOSEC) 20 mg capsule TAKE 1 CAPSULE BY MOUTH EVERY DAY 30 MINUTES BEFORE A MEAL lisinopril (ZESTRIL, PRINIVIL) 20 mg tablet Take 20 mg by mouth once daily. levothyroxine (SYNTHROID) 75 mcg tablet Take 75 mcg by mouth daily before breakfast. ALLERGIES: ALLERGIES Allergen Reactions - Erythromycin Hives Medications and allergies reviewed REVIEW OF SYSTEMS: GENERAL: No weight loss, malaise or fevers RESPIRATORY: see hpi CARDIOVASCULAR: Denies CP, palpitations, dizziness, (+)BLE swelling. GI: No nausea, vomiting, or diarrhea, denies constipation or melena : No history of dysuria, frequency or incontinence, denies hematuria or foamy urine. SKIN: Negative for lesions, rash, and itching PHYSICAL EXAM: Average BP (BpTru): 94/64 BpTRU BP #1 discard value (BpTru): 93/70 Pulse #1 Discard Value (BpTru): 96 beats/min BP #2 (BpTru): 102/70 Pulse #2 (BpTru): 93 beats/min BP #3 (BpTru): 106/64 Pulse #3 (BpTru): 95 beats/min BP #4 (BpTru): 95/62 Pulse #4 (BpTru): 100 beats/min BP #5 (BpTru): 91/61 Pulse #5 (BpTru): 100 beats/min BP #6 (BpTru): 91/65 Pulse #6 (BpTru): 101 beats/min Average BP (BpTru): 94/64 Average Pulse (BpTru): 98 beats/min BP cuff location: Left upper arm BP cuff size: regular adult General appearance: Well appearing, alert, in no acute distress, well-hydrated, well nourished. Skin: Skin color, texture, turgor normal, no suspicious rashes or lesions Neck: Supple, normal size, Lungs: Lungs clear to auscultation. No wheezing, rhonchi, rales Heart: RRR without murmur, gallop, or rubs. Abdomen: Norm (more content not included)...[facility]05-13-2021 NoteHNO ID: [id number] Author: Javi Bates MD Service: ? Author Type: Physician Type: Progress Notes Filed: 10/11/2020 4:45 PM Note Text: Chief Complaint Patient presents with: Follow Up Pain: joint pain, ankles, hips Shortness of Breath: onset 07/30/20 after vaccine HPI Kulwant Andrade is a 80 year old male who presents here today for Above Complaints.. Patient was seen in [facility] care and in the office last week and this past Thursday for above concerns. He has been having joint pain: wrists, elbows, knees, ankles, and hips, feels like an ache which is constant. Taking warm baths which is beneficial. Noticed this pain started after his first covid vaccine 07/30/2020. Denies any fever or chills. No night sweats. He feels like he has progressively gotten weaker in the last several Months. Hard to get out of a chair. He has not been able to work on his [employer] like he likes to do. He was told by Dr. Calabrese about a year ago he may have Lupus but patient says he has not had any of the symptoms like his did who with Lupus 6 yrs ago. No headache's, temporal pain or pain with chewing. He had been taking NSAID's regularly up to a few weeks ago. Dr. Calabrese put him on a steroid taper starting at 30 mg and going down to 10 mg over a 15 day period on 08/21/2020. Patient felt no better with this. He was then put on dexamethasone 2 mg 3 for 5 days, 2 for 5 days, then one for 5 days on 09/05/2020. Though pharmacy shows a refill of the dexamethasone on 10/05/2020 patient says he has not taken any other steroids. Labs recently showed abnormal renal panel, he also had an elevated calcium , ionized calcium with a low PTH. Most recently rheumatoid panel was abnormal with a ERS of 109 (in July was 7), CRP of 1.3 and positive KHANH Past medical history, appointments, medications, allergies reviewed. Previous Medical History PAST MEDICAL HISTORY Diagnosis Date - Chronic cholecystitis - Essential hypertension, benign - Myalgia and myositis, unspecified - Other and unspecified hyperlipidemia Previous Surgical History PAST SURGICAL HISTORY Procedure Laterality Date - EXPLORATORY OF ABDOMEN Laparotomy, exp - LAPAROSCOPIC CHOLECYSTECTOMY 05/03/07 - PAST SURGICAL HISTORY OF back surgery - PAST SURGICAL HISTORY OF excision of kidney tumor Family History FAMILY HISTORY Problem Relation Age of Onset - Breast Cancer Sister x3 - Cancer Sister x2 lung - Cancer Brother appendix Patient Allergies ALLERGIES Allergen Reactions - Erythromycin Hives Current Medications Current Outpatient Medications on File Prior to Visit Medication Sig - acetaminophen/diphenhydramine (TYLENOL PM EXTRA STRENGTH ORAL) Take 2 tablets by mouth as needed. - Cholecalciferol, Vitamin D3, 125 mcg (5,000 unit) cap Take 5,000 Units by mouth once daily. - spironolactone (ALDACTONE) 25 mg tablet Take 25 mg by mouth once daily. - amLODIPine (NORVASC) 10 mg tablet Take 10 mg by mouth once daily. - omeprazole (PRILOSEC) 20 mg capsule TAKE 1 CAPSULE BY MOUTH EVERY DAY 30 MINUTES BEFORE A MEAL - lisinopril (ZESTRIL, PRINIVIL) 20 mg tablet Take 20 mg by mouth once daily. - levothyroxine (SYNTHROID) 75 mcg tablet Take 75 mcg by mouth daily before breakfast. No current facility-administered medications on file prior to visit. Social History Social History Tobacco Use - Smoking status: Never Smoker - Smokeless tobacco: Never Used Substance Use Topics - Alcohol use: No - Drug use: Not on file Review of Symptoms REVIEW OF SYSTEMS See HPI EXAM: BP 98/56 (BP Site: Left Arm, BP Position: Sitting, BP Cuff Size: Regular Adult) Pulse 101 Temp 36.6 ?C (97.8 ?F) (Tympanic) Resp 14 Wt 79.2 kg (174 lb 9.6 oz) SpO2 100% General Appearance: Well appearing, alert, in no acute distress, well-hydrated, well nourished.. Lungs: Lungs clear to auscultation. No wheezing, rhonchi, rales.. Heart: RRR without murmur, gallop, or rubs. No ectopy. Extremities: No deformities, edema, skin discoloration, Peripheral Pulses: Normal. Neurologic: Gait normal. Reflexes normal and symmetric. Sensation to light touch and crainal nerves 2-12 intact.. Muscular: Upper extremity strength seems normal. Knee extension strength was good. Hip flexion showed slight weakness on both sides and worse on the right. Health Maintenance List HEPATITIS C SCREENING Never done DTAP,TDAP,TD(1 - Tdap) Never done COLORECTAL CANCER SCREENING Never done SHINGRIX VACCINE(1 of 2) Never done ADVANCE DIRECTIVE DISCUSSION Never done PNEUMOVAX AGE 65 AND OVER WITH 5YR LOOKBACK(1) Never done COVID-19 VACCINE(2 - Moderna 2-dose series) due on 08/27/2020 INFLUENZA(Season Ended) due on 01/30/2021 ANNUAL PCP TEAM CHRONIC DISEASE VISIT due on 10/08/2021 BP CONTROLLED (<130/80) due on 10/08/2021 DEPRESSION SCREENING due on 10/11/2021 DIABETES SCREEN due on 10/03/2023 MENINGOCOCCAL CONJUGATE (more content not included)...[facility] 10-08-2020 NoteHNO ID: [id number] Author: Martha Flower APRN.SYNCHRONOUS MOTOR ASSEMBLER Service: ? Author Type: Nurse Practitioner Type: Progress Notes Filed: 10/08/2020 9:11 AM Note Text: This is a 80 year old male who presents today with: No chief complaint on file. HISTORY OF PRESENT ILLNESS: Kulwant Andrade is a 80 year old male. No chief complaint on file. Patient presents to the office for urgent care follow up for body chills. Went to urgent care on 10/02/2020 for myalgias. Blood work was completed and given Toradol. Concerns for kidney injury due to possible NSAID use, his creatinine 2.03, bun 43, potassium 5.2, calcium 10.2. Patient today still refers he is having joint pain: wrists, elbows, knees, ankles, and hips, feels like an ache which is constant. Taking warm baths which is beneficial. Noticed this pain started after his first covid vaccine 07/30/2020. Denies any fever or chills. Brought lab work in that he had completed in July 2020, showed reduce kidney function and + KHANH. Patient has not had any ibuprofen for a couple of weeks as instructed from urgent care. PAST MEDICAL HISTORY: PAST MEDICAL HISTORY Diagnosis Date - Chronic cholecystitis - Essential hypertension, benign - Myalgia and myositis, unspecified - Other and unspecified hyperlipidemia PAST SURGICAL HISTORY Procedure Laterality Date - EXPLORATORY OF ABDOMEN Laparotomy, exp - LAPAROSCOPIC CHOLECYSTECTOMY 05/03/07 - PAST SURGICAL HISTORY OF back surgery - PAST SURGICAL HISTORY OF excision of kidney tumor ALLERGIES Erythromycin MEDICATIONS Current Outpatient Medications Medication Sig - Cholecalciferol, Vitamin D3, 125 mcg (5,000 unit) cap Take 5,000 Units by mouth once daily. - spironolactone (ALDACTONE) 25 mg tablet Take 25 mg by mouth once daily. - amLODIPine (NORVASC) 10 mg tablet Take 10 mg by mouth once daily. - omeprazole (PRILOSEC) 20 mg capsule TAKE 1 CAPSULE BY MOUTH EVERY DAY 30 MINUTES BEFORE A MEAL - lisinopril (ZESTRIL, PRINIVIL) 20 mg tablet Take 20 mg by mouth once daily. - levothyroxine (SYNTHROID) 75 mcg tablet Take 75 mcg by mouth daily before breakfast. No current facility-administered medications for this visit. FAMILY HISTORY Problem Relation Age of Onset - Breast Cancer Sister x3 - Cancer Sister x2 lung - Cancer Brother appendix Social History Tobacco Use - Smoking status: Never Smoker - Smokeless tobacco: Never Used Substance Use Topics - Alcohol use: No - Drug use: Not on file REVIEW OF SYSTEMS GENERAL: No weight loss, malaise or fevers/chills HEENT: Negative for frequent or significant headaches, No changes in hearing or vision. NECK: Negative for lumps, goiter, pain and significant neck swelling RESPIRATORY: Negative for cough, hemoptysis, wheezing, dyspnea or shortness of breath CARDIOVASCULAR: Negative for chest pain, leg swelling, orthopnea, or palpitations GI: No nausea, vomiting, or diarrhea/constipation. No hematochezia/melena. No heartburn or reflux symptoms. : No history of dysuria, frequency or incontinence MUSCULOSKELETAL: + joint pain SKIN: Negative for lesions, rash, and itching ENDOCRINE: Negative for cold or heat intolerance, polyuria, polydipsia and goiter NEURO: No history of headaches, syncope, paralysis, seizures or tremors MOOD: Negative for depression, anxiety, or suicidal ideation. EXAM: BP 102/70 Pulse 72 Resp 20 PHYSICAL EXAM: General Appearance: Well appearing, alert, in no acute distress, well-hydrated, well nourished. Skin: Skin color, texture, turgor normal, no suspicious rashes or lesions. Head: Normocephalic, no masses, lesions, tenderness or abnormalities. Eyes: Anicteric sclera. Extraocular movements are intact. Lungs: Lungs clear to auscultation. No wheezing, rhonchi, rales. Heart: RRR without murmur, gallop, or rubs. No ectopy. Extremities: No deformities, edema, skin discoloration, clubbing or cyanosis. Good capillary refill. . Musculoskeletal: Joint pain: Wrists, elbows, hips, knees, and ankles- tender with palpation, but no swelling or erythema. Normal WNL. Peripheral Pulses: Normal, Capillary refill <2secs, strong peripheral pulses, Pulses palpable. Neurologic: Gait normal. Reflexes normal and symmetric. Sensation grossly intact. Strength 5/5 bilaterally. ASSESSMENT/PLAN: 1. Myalgia - ICD9: 729.1, ICD10: M79.10 - Instructued the patient to get blood work completed today. - May use Tylenol 650 mg every 6 hours as needed for pain, he may continue to use warm baths or heating pad to help with the joint pain as well. - Follow-up pending lab results. - Patient refers he had a positive KHANH, may need referral to rheumatology pending lab results. - C-REACTIVE PROTEIN (CRP) - KHANH BLOOD - SED RATE [facility] - FOLATE SERUM - B-12 LEVEL (B12) (FOR REMOTE [facility], [facility] USE) Follow up pending lab testing or sooner as needed. Discussed treatment plan and patient voices understanding. Mckenzie (more content not included)...[facility]05-04-2021 NoteHNO ID: [id number] Author: Magalys Gutierres APRN.SYNCHRONOUS MOTOR ASSEMBLER Service: ? Author Type: Nurse Practitioner Type: Progress Notes Filed: 10/02/2020 2:57 PM Note Text: This note was created using [employer]. Subjective Kulwant Andrade is a 80 year old male. With PMH hypothyroid, acid reflux, HTN presents for complaints of body aches. Acute onset August 06 and he states that he believes this is related to the vaccine. 1st vaccine Moderna on July 30. August 06 woke up with joint paint and body aches my feet feel glued to floor: Endorses every bit of me hurts He was seen by Dr. Hernandez on August 07 for same complaints and states he was placed on 2 rounds of steroids. No relief. Advised to not obtain second vaccine. States he had an appointment on August [address] Hernandez, but was cancelled by office. Endorses that they told me a touch of lupus possibly Endorses sx have been worsening over past few weeks. States that he has been using Ibuprofen but without relief of symptoms. He states he is unable to get in with his PCP, Dr. Hernandez. I don't know what is going on in that office The history is provided by the patient. No computer information science professor was used. Musculoskeletal Problem This is a new problem. The current episode started more than 1 month ago. The problem occurs constantly. The problem has been unchanged. Associated symptoms include myalgias. Pertinent negatives include no abdominal pain, anorexia, chest pain, chills, congestion, coughing, diaphoresis, fatigue, fever, headaches, nausea, numbness, rash or vomiting. Nothing aggravates the symptoms. He has tried NSAIDs for the symptoms. The treatment provided no relief. PAST MEDICAL HISTORY Diagnosis Date - Chronic cholecystitis - Essential hypertension, benign - Myalgia and myositis, unspecified - Other and unspecified hyperlipidemia PAST SURGICAL HISTORY Procedure Laterality Date - EXPLORATORY OF ABDOMEN Laparotomy, exp - LAPAROSCOPIC CHOLECYSTECTOMY 05/03/07 - PAST SURGICAL HISTORY OF back surgery - PAST SURGICAL HISTORY OF excision of kidney tumor ALLERGIES Erythromycin MEDICATIONS spironolactone (ALDACTONE) 25 mg tablet Take 25 mg by mouth once daily. lisinopril (ZESTRIL, PRINIVIL) 20 mg tablet Take 20 mg by mouth once daily. levothyroxine (SYNTHROID) 75 mcg tablet Take 75 mcg by mouth daily before breakfast. KLOR-CON 10 10 MEQ TAB amLODIPine (NORVASC) 10 mg tablet Take 10 mg by mouth once daily. omeprazole (PRILOSEC) 20 mg capsule TAKE 1 CAPSULE BY MOUTH EVERY DAY 30 MINUTES BEFORE A MEAL METOPROLOL SUCCINATE ORAL Take by mouth. DICLOFENAC SODIUM ORAL Take by mouth. ASPIRIN 81 MG CHEWABLE TAB Take one(1) tablet daily. NIFEdipine XL 60 mg ORAL TbSR Take one(1) tablet daily. ezetimibe-simvastatin (VYTORIN 10/20) 10-20 mg ORAL Tab Take one(1) tablet daily. HYDROCHLOROTHIAZIDE 25 MG TAB Take one(1) tablet daily. PRINIVIL 20 MG TAB Take one(1) tablet daily. FAMILY HISTORY Problem Relation Age of Onset - Breast Cancer Sister x3 - Cancer Sister x2 lung - Cancer Brother appendix Social History Tobacco Use - Smoking status: Never Smoker - Smokeless tobacco: Never Used Substance Use Topics - Alcohol use: No - Drug use: Not on file Review of Systems Constitutional: Negative for appetite change, chills, diaphoresis, fatigue and fever. HENT: Negative for congestion, dental problem, drooling, ear discharge, ear pain, facial swelling, hearing loss, mouth sores, nosebleeds, postnasal drip, rhinorrhea, sinus pressure and sinus pain. Eyes: Negative for photophobia, pain, redness and visual disturbance. Respiratory: Negative for apnea, cough, choking, chest tightness and shortness of breath. Cardiovascular: Negative for chest pain, palpitations and leg swelling. Gastrointestinal: Negative for abdominal pain, anorexia, diarrhea, nausea and vomiting. Musculoskeletal: Positive for myalgias. Skin: Negative for color change, pallor, rash and wound. Allergic/Immunologic: Negative for environmental allergies, food allergies and immunocompromised state. Neurological: Negative for dizziness, facial asymmetry, light-headedness, numbness and headaches. Hematological: Negative for adenopathy. Does not bruise/bleed easily. Psychiatric/Behavioral: Negative for agitation, behavioral problems, confusion and decreased concentration. Objective BP 124/84 Pulse 116 Temp 36.9 ?C (98.5 ?F) (Tympanic) Resp 18 Wt 78.9 kg (174 lb) SpO2 96% Physical Exam Vitals and nursing note reviewed. Constitutional: General: He is not in acute distress. Appearance: Normal appearance. He is normal weight. He is not ill-appearing, toxic-appearing or diaphoretic. Comments: Elderly appearing. Pleasant HENT: Head: Normocephalic and atraumatic. Right Ear: Tympanic membrane and ear canal normal. Left Ear: Tympanic membrane and ear canal normal. Nose: Nose normal. Mouth/Throat: (more content not included)...[facility] note Author Ana Keyes [facility] January 06, 2023 10:26am Note Date/Time January 06, 2023 10: 26am [facility] Medical Records Department [address] [place] [address] Counseling Note - Pharmacy 01/06/23 1025 MR#: [id number] Acct: [id number] Name: KULWANT ANDRADE Rep #:[id number] : 1940 82 From: Ana Keyes PCP: Dr. Jose Hooks MD Status:ADM I NO Y Location: [place] [address] Pharmacy [facility] Service has performed discharge medication reconciliation and counseling for this patient. 1. AMLODIPINE 2.5MG PO DAILY 2. CLOPIDOGREL 75MG PO DAILY The patient's discharge medication list was reviewed for discrepancies and discrepancies were resolved. The patient was counseled on the following discharge medications and changes in medications for homegoing were reviewed. The Reason for Use, instructions for use, and potential side effects were reviewed for all new medications. The patient's questions regarding all of their medications were answered. The patient was able to verbally demonstrate an understanding of their dischargemedications. Patient counseled by retail pharmacy merchandiserRenetta. Medications at Discharge Home Medications aspirin 81 mg chewable tablet 81 mg PO DAILY HEART HEALTH 02/22/21 pantoprazole 40 mg tablet,delayed release 40 mg PO DAILY reflux 30 days #30 tabs1 cholecalciferol (vitamin D3) 25 mcg (1,000 unit) capsule 25 mcg PO DAILY [id number]/27/22 levothyroxine 75 mcg tablet 88 mcg PO DAILY@0600 thyroid 06/26/22 metoprolol tartrate 25 mg tablet 25 mg PO BID blood pressure #180 tabs 08/28/22 evolocumab 140 mg/mL subcutaneous pen injector (Repatha SureClick) 140 mg [id number] cholesterol #2 mL 11/18/22 furosemide 20 mg tablet (Lasix) 20 mg PO DAILY PRN edema, sob, weight gain #60 tabs 11/18/22 amlodipine 2.5 mg tablet 2.5 mg PO DAILY #60 tabs 01/05/23 clopidogrel 75 mg tablet 75 mg PO DAILY #30 tabs 01/05/23 01/06/23 1026 <Electronically signed by Ana Keyes> Date _ Ana Keyes Cosigner Signature (if applicable): Date __ CC: ~ Signed [facility] Work Phone: Discharge summary Author Melody Whitmore [facility] January 06, 2023 11:29am Note Date/Time January 06, 2023 11: 29am [facility] Medical Records Department [address] [place] [address] Instructions for Home/Discharge Instructions 01/06/23 1127 MR#: [id number] Acct: [id number] Name: KULWANT ANDRADE Rep #:[id number] : 1940 82 From: Melody Whitmore MD PCP: Dr. Jose Hooks MD Status:ADM I NO Discharge Instructions Diet Discharge Diet: Low fat / Low cholesterol Activity Discharge Activity: Return to Normal Activity Dressing / Incision Call your doctor if your incision/area has: Sudden Increased Bleeding, IncreasedPain/ Swelling, Increased Redness, Foul Smelling Discharge and Swelling at the incision site Follow Up Care Please Follow Up With: Melody Whitmore MD When: 2 weeks Test Results: Test results from this visit will be discussed in further detail at your follow- up appointment, if applicable. Discharge Plan Admission Admit Date/Time: 01/05/23 10:39 Attending Provider: Melody Whitmore Primary Care Provider: Jose Hooks Chi Instructions Patient Instructions: Cardiac Cath Transradial Discharge Orders/Prescriptions Prescriptions: New amlodipine 2.5 mg Tablet 2.5 mg PO DAILY Qty: 60 6RF clopidogrel 75 mg Tablet 75 mg PO DAILY Qty: 30 11RF Continued cholecalciferol (vitamin D3) 25 mcg (1,000 unit) capsule 25 mcg PO DAILY levothyroxine 75 mcg tablet 88 mcg PO DAILY@0600 aspirin 81 mg Tablet,Chewable 81 mg PO DAILY pantoprazole 40 mg Tablet,Delayed Release (Dr/Ec) 40 mg PO DAILY 30 Days Qty: 30 0RF metoprolol tartrate 25 mg tablet 25 mg PO BID Qty: 180 3RF Repatha SureClick 140 mg/mL pen injector 140 mg subcut Q2W Qty: 2 11RF furosemide [Lasix] 20 mg tablet 20 mg PO DAILY PRN (Reason: edema, sob, weight gain) Qty: 60 11RF Hold Instructions: Pt stopped due to frequent urination Referrals / Follow Up: Jose Hooks Chi, MD [Primary Care Provider] - Disposition Disposition (needs filled in before D/C Order can be placed): Home, Self Care 01/06/23 1129<Electronically signed by Melody Whitmore MD>Melody Whitmore MD CC: Dr. Jose Hooks MD ~ Signed [facility] Work Phone: Discharge summary Author Jay Wright [facility] October 03, 2023 9:30am Note Date/Time October 03, 2023 9:26am [facility] Medical Records Department [address] [place] [address] Instructions for Home/Discharge Instructions 10/03/23925 MR#: [id number] Acct: [id number] Name: KULWANT ANDRADE Rep #:[id number] : 1940 83 From: Jay santos DO PCP: Dr. Jose Hooks MD Status:ADM I N Discharge Instructions Diet Discharge Diet: No restrictions Activity Discharge Activity: No Restrictions Follow Up Care Test Results: Test results from this visit will be discussed in further detail at your follow- up appointment, if applicable. Discharge Plan Admission Admit Date/Time: 09/30/23 16:14 Primary Reason for Your Visit: blood in urine, UTI Attending Provider: Jay Wright Primary Care Provider: Jose Hooks Chi Consulting Providers: Galilea Lopez Instructions Additional Instructions / Restrictions: Please take Bactrim as noted below to complete a 7-day course of antibiotics total for your UTI. Please call Dr. Perdomo's office on Thursday to schedule an appointment early next week - He is aware of your case and will make sure you are seen next week. Please hold the Plavix until your appointment with Dr. Perdomo. Discharge Orders/Prescriptions Prescriptions: New sulfamethoxazole-trimethoprim [Bactrim DS] 800-160 mg tablet 1 tab PO BID 4 Days Qty: 7 0RF Continued cholecalciferol (vitamin D3) 25 mcg (1,000 unit) capsule 25 mcg PO DAILY (DME) blood pressure monitor Kit See Rx Instructions .Route Qty: 1 0RF Rx Instructions: As directed metoprolol tartrate 50 mg tablet 50 mg PO BID Qty: 60 11RF amlodipine 2.5 mg Tablet 2.5 mg PO DAILY Qty: 60 6RF levothyroxine 88 mcg tablet 88 mcg PO DAILY prednisone 5 mg tablet 5 mg PO DAILY aspirin [Adult Aspirin Regimen] 81 mg tablet,delayed release (DR/EC) 81 mg PO DAILY Tylenol PM Extra Strength 25-500 mg tablet 2 tab PO QHS pantoprazole 40 mg Tablet,Delayed Release (Dr/Ec) 40 mg PO DAILY Rx Instructions: Twice daily for 2 months and then once daily. Changed acetaminophen [Tylenol Extra Strength] 500 mg tablet 1,000 mg PO Q8H PRN PRN (Reason: fever or pain) 30 Days Qty: 0 0RF Held clopidogrel 75 mg Tablet 75 mg PO DAILY Qty: 30 11RF Hold Instructions: Resume on 10/09/23. Hold until Urology appointment Referrals / Follow Up: Jese Perdomo MD [Med Staff - Active Staff] - Jose Hooks Chi, MD [Primary Care Provider] - Disposition Disposition (needs filled in before D/C Order can be placed): Home, Self Care 10/03/23 0930<Electronically signed by Jay Wright DO>Jay Wright DO CC: Dr. Galilea Lopez DO; Dr. Jose Hooks MD ~ Signed [facility] Work Phone: Discharge summary Author Jay Wright [facility] October 03, 2023 10:59am Note Date/Time October 03, 2023 10:59a m [facility] Medical Records Department [address] [place] [address] Discharge Summary 10/03/23 1050 MR#: [id number] Acct: [id number] Name: KULWANT ANDRADE #:[id number] : 1940 83 From: Jay santos DO PCP: Dr. Jose Hooks MD Status:DIS I N [place] [facility] [place] [facility] Providers Date of Admission: 09/30/23 Date of Discharge: 10/03/23 Primary Care Physician: Dr. Jose Hooks MD Reason For Visit: GROSS HEMATURIA WITH BLADDER MASS AND UTI Diagnosis Discharge Diagnosis (1) Sepsis: Status: Resolved Code(s): A41.9 - Sepsis, unspecified organism Qualifiers: Sepsis type: Pneumococcus Sepsis acute organ dysfunction status: with acute organ dysfunction Severe sepsis acute organ dysfunction type: acute renalfailure Acute renal failure type: unspecified Severe sepsis shock status: without septic shock Qualified Code(s): A40.3 - Sepsis due to Streptococcus pneumoniae; R65.20 - Severe sepsis without septic shock; N17.9 - Acute kidney failure, unspecified (2) UTI (urinary tract infection): Status: Acute Code(s): N39.0 - Urinary tract infection, site not specified (3) Bladder mass: Status: Acute Code(s): N32.89 - Other specified disorders of bladder (4) BART (acute kidney injury): Status: Resolved Code(s): N17.9 - Acute kidney failure, unspecified (5) Gross hematuria: Status: Acute Code(s): R31.0 - Gross hematuria Medications at Discharge Home Medications cholecalciferol (vitamin D3) 25 mcg (1,000 unit) capsule 25 mcg PO DAILY SUPPLEMENT 12/25/21 amlodipine 2.5 mg tablet 2.5 mg PO DAILY BLOOD PRESSURE #60 tabs 01/05/23 clopidogrel 75 mg tablet 75 mg PO DAILY BLOOD THINNER #30 tabs 01/05/23 blood pressure monitor #1 ea 01/15/23 metoprolol tartrate 50 mg tablet 50 mg PO BID BLOOD PRESSURE #60 tabs 02/24/23 levothyroxine 88 mcg tablet 88 mcg PO DAILY THYROID 05/29/23 aspirin 81 mg tablet,delayed release (Adult Aspirin Regimen) 81 mg PO DAILY 09/30/23 diphenhydramine 25 mg-acetaminophen 500 mg tablet (Tylenol PM Extra Strength) 2 tab PO QHS 09/30/23 pantoprazole 40 mg tablet,delayed release 40 mg PO DAILY ACID REFUX 09/30/23 prednisone 5 mg tablet 5 mg PO DAILY 09/30/23 acetaminophen 500 mg tablet (Tylenol Extra Strength) 1,000 mg (2 x 500 mg) PO Q8H PRN PRN fever or pain 30 days #0 tabs 10/03/23 sulfamethoxazole 800 mg-trimethoprim 160 mg tablet (Bactrim DS) 1 tab PO BID 4 days #7 tabs 10/03/23 Hospital Course Operations None Procedures - (CT abdomen pelvis with and without contrast, abdominal ultrasound) Summary of Care Provided Minutes Spent on Discharge: 35 Hospital Course: Patient is an 83-year-old male who presented to [facility] ED on09/30/2023 with gross hematuria. Hospital course as noted below. Patient discharged home with no therapy needs in stable condition on 10/02. 1. Sepsis secondary to E. coli UTI, improving Initially admitted to [facility], not septic on admission. However, that sepsis criteria on hospital day 2 with worsening leukocytosis, new BART, hypotension, elevated lactate in setting of UTI. Given high concern for gram-negative sepsis,transferred to ICU on 09/30. BP responsive to 30 cc/kg IV fluid bolus. Urine culture grew > 100K pansensitive E. coli. Blood cultures negative at 48 hours. Treated with IV ceftriaxone and patient did very well, never required pressors. Stable for transfer out of the ICU on 10/01. ? Discharged on Bactrim DS twice daily to complete 7 day course of antibiotics total, stop date 10/05. 2. Gross hematuria, resolved; bladder mass; mild acute blood loss anemia, stable CT abdomen pelvis on admit showed diffuse bladder wall thickening with a 1.5 cm x 1.4 cm polypoid lesion at the base of the bladder. Suspected that hematuria was multifactorial due to bladder lesion with UTI while on aspirin and Plavix dual therapy. Had traumatic Andrews placement in the ED suspected due to BPH, likely also factoring in. Andrews removed in ED due to patient discomfort. Hemoglobin was 13.9 on admit, at baseline. Hemoglobin dropped slightly during hospitalization with juan carlos of 11.3, stable at 11.8 on day of discharge. ? Home baby aspirin and Plavix held on admission. However given recent stent placement as noted below, restarted home aspirin on morning of 10/01. Patient hadno worsening of hematuria and hemoglobin remained stable on aspirin. Briefly discussed with Dr. Perdomo and will plan to have patient follow-up in the office there by early to mid next week with likely plan for cystoscopy with biopsy of bladder mass. Will hold Plavix until that appointment. 3. History of CAD s/p CABG and recent stenting ? Follows with [facility]. Most recent stenting was done in December 2022. On home aspirin and Plavix. Aspirin and Plavix both held on admit, restarted aspirin on 10/01. Will continue to hold Plavix for suspected urology procedure next week. Has outpatient follow-up with cardiology scheduled for 10/13. 4. BART on CKD stage III, resolved ? Creatinine 1.36 on admit, appeared to be at baseline creatinine around 1.1- 1.4. Worsened to creatinine 1.88 on 09/30, suspected due to sepsis as noted above. Creatinine resolved to baseline on 10/01. Continue antibiotics as noted above. Trend daily BMP and urine output. 5. Elevated transaminases, improving ? AST 209, ALT 185, alk phos 213, T. bili 1.80 on 09/30. No previous history of elevated LFTs. CT abdomen pelvis on admit showed history of cholecystectomy, decreased liver attenuation consistent with steatosis, no other RUQ pathology. Right upper quadrant ultrasound on 09/30 with no abnormalities. Labs improved on 10/01. Seems most consistent with mild ischemic hepatitis. No need to trend further LFTs. 6. Suspected BPH without obstructive symptoms ? No reported history of BPH or obstructive symptoms per patient. However givenUTI on admit and heterogenously enlarged prostate on CT on admit, strongly suspect BPH. PSA mildly elevated at 5.03. Patient had good urine output and nodifficulty with urination during hospitalization, thus decided not to start Flomax on discharge. Chronic medical conditions: ? Recent history of VTE s/p IVC filter placement: Found on CT imaging on 05/21/2023 to have a saddle PE, started on Eliquis and stable for discharge on 05/23. Unfortunately had an upper GI bleed with acute blood loss anemia requiring admission on 05/29-. AC was discontinued and IVC filter was placed on 06/03. ? History of GERD with Ogden's esophagus and recent upper GI bleed: Had upper GI bleed while on Eliquis as noted above. Per Dr. Rose's note on 07/15, patient has intermittent reflux typically related to lifestyle choices, Protonixwas reduced from twice daily to daily at that time. Currently stable and asymptomatic. Continue home PPI daily. ? Hypertension: Home Lopressor and amlodipine held during hospitalization. Became hypertensive to 150s on day of discharge which is likely his baseline, okay to resume home meds on discharge. ? Hyperlipidemia: Intolerant to statins and fenofibrate. Monitor outpatient. ? Hypothyroidism: Stable. Continue home Synthroid. ? History of A-fib s/p radiofrequency ablation: Stable in normal sinus rhythm. ? History of KHANH positive with myalgias: Continue home low-dose prednisone. ? Insomnia: Continue home Benadryl. Total clinical time spent by myself addressing the patient's medical issues, reviewing all the data, and collaborating with patient's care team: 35 minutes. Physical Exam Const alert, oriented x3, no apparent distress and average body habitus Constitutional Narrative: Pleasant elderly male, sitting up comfortably in bedside chair, conversing normally, no acute distress. General Appearance: cooperative and comfortable HEENT normocephalic, head/scalp atraumatic, hearing grossly normal bilaterally and nasal mucous membranes and turbinates normal Eyes PERRL, EOMs intact bilaterally and conjunctivae normal Neck full ROM Chest inspection of chest normal Resp normal respiratory effort, normal air movement, no use of accessory muscles and clear to auscultation bilaterally Cardio regular rate, regular rhythm, no murmurs and peripheral pulses 2+ throughout GI normal to inspection, nondistended, normoactive bowel sounds, soft to palpation,non-tender and non-distended Negative for no CVA tenderness Bladder / Kidney Exam: No catheter in place and bladder normal to palpation Back/Spine normal ROM Extremity normal to inspection, full ROM and no pedal edema Skin no rashes or lesions noted Neuro moves all extremities and no focal motor deficits Speech: speech normal Psych mental status grossly normal Weight / BMI Weight Weight: 81.5 kg Body Mass Index (BMI) 25.0 ABG / Lab / Microbiology Data 10/03/23 06:12 10/03/23 06:12 Laboratory: Laboratory Results - last 24 hr 10/03/23 06:12: WBC 8.2, RBC 3.79 L, Hgb 11.8 L, Hct 36.2 L, MCV 95.5 H, MCH 31.1, MCHC 32.6, RDW Std Deviation 45.5 H, RDW Coeff of Sukumar 13.1, Plt Count 208,MPV 9.7, Sodium 144, Potassium 3.7, Chloride 114 H, Carbon Dioxide 27.0, Anion Gap 3 L, BUN 17, Creatinine 1.09, Estim Creat Clear Calc 56.61, Est GFR (MDRD) Af Amer 84, Est GFR (MDRD) Non-Af 69, BUN/Creatinine Ratio 15.6, Glucose 78, Calcium 8.1 L Microbiology: Microbiology 09/30/23 10:05 Urine, Clean Catch Urine Culture - Final Escherichia coli D/C Instructions Discharge Diet: No restrictions Meaningful Use Info Meaningful Use Meaningful Use Diagnoses (Choose all that apply): None applicable Ischemic Stroke Statin Dosing Therapy Reference: STATIN DOSE THERAPY REFERENCE: * Patients > 75 years receive moderate or high dose statin therapy. * Patients 75 years or YOUNGER should receive HIGH intensity statin dose unless contraindicated. You will be required to document reason for non-treatment if statin daily dose does not meet guidelines. HIGH DOSE STATIN THERAPY DAILY Atorvastatin > than or = to 40 mg Rosuvastatin > than or = to 20 mg Amlodipine + Atorvastatin > than or = to 2.5/40 mg Ezetimibe + Simvastatin 10/80 mg Simvastatin 80mg Discharge Plan Admission Admit Date/Time: 09/30/23 16:14 Primary Reason for Your Visit: blood in urine, UTI Attending Provider: Jay Wright Primary Care Provider: Jose Hooks Chi Consulting Providers: Galilea Lopez Instructions Additional Instructions / Restrictions: Please take Bactrim as noted below to complete a 7-day course of antibiotics total for your UTI. Please call Dr. Perdomo's office on Thursday to schedule an appointment early next week - He is aware of your case and will make sure you are seen next week. Please hold the Plavix until your appointment with Dr. Perdomo. Discharge Orders/Prescriptions Prescriptions: New sulfamethoxazole-trimethoprim [Bactrim DS] 800-160 mg tablet 1 tab PO BID 4 Days Qty: 7 0RF Continued cholecalciferol (vitamin D3) 25 mcg (1,000 unit) capsule 25 mcg PO DAILY (DME) blood pressure monitor Kit See Rx Instructions .Route Qty: 1 0RF Rx Instructions: As directed metoprolol tartrate 50 mg tablet 50 mg PO BID Qty: 60 11RF amlodipine 2.5 mg Tablet 2.5 mg PO DAILY Qty: 60 6RF levothyroxine 88 mcg tablet 88 mcg PO DAILY prednisone 5 mg tablet 5 mg PO DAILY aspirin [Adult Aspirin Regimen] 81 mg tablet,delayed release (DR/EC) 81 mg PO DAILY Tylenol PM Extra Strength 25-500 mg tablet 2 tab PO QHS pantoprazole 40 mg Tablet,Delayed Release (Dr/Ec) 40 mg PO DAILY Rx Instructions: Twice daily for 2 months and then once daily. Changed acetaminophen [Tylenol Extra Strength] 500 mg tablet 1,000 mg PO Q8H PRN PRN (Reason: fever or pain) 30 Days Qty: 0 0RF Held clopidogrel 75 mg Tablet 75 mg PO DAILY Qty: 30 11RF Hold Instructions: Resume on 10/09/23. Hold until Urology appointment Referrals / Follow Up: Jese Perdomo MD [Med Staff - Active Staff] - Jose Hooks Chi, MD [Primary Care Provider] - Disposition Disposition (needs filled in before D/C Order can be placed): Home, Self Care Charges/Coding Visit Charges Inpatient E&M: 50616 Disch Hosp >30min 10/03/23 1059 <Electronically signed by Jay Wright DO> Cosigner Signature (if applicable): CC: Dr. Jay Wright DO; Dr. Jose Hooks MD~ Signed [facility] Work Phone: Evaluation + Plan note Future Appointments [facility] Evaluation note* Diagnosis Onset Date Resolution Status Dysarthria acute ABLA (acute blood loss anemia) acute Acute upper gastrointestinal bleeding acute Anticoagulated by anticoagulation treatment acute Bilateral pulmonary embolism acute GI bleed resolved Bilateral pulmonary embolism acute S/P insertion of IVC (inferior vena caval) filter acute Barretts esophagus chronic GI bleed resolved S/P insertion of IVC (inferior vena caval) filter acute [facility] Work Phone: Evaluation note* Diagnosis Onset Date Resolution Status Bilateral pulmonary embolism acute S/P insertion of IVC (inferior vena caval) filter acute Barretts esophagus chronic GI bleed resolved S/P insertion of IVC (inferior vena caval) filter acute Hematuria acute [facility] Work Phone: Evaluation note* Diagnosis Onset Date Resolution Status Bilateral pulmonary embolism acute S/P insertion of IVC (inferior vena caval) filter acute Barretts esophagus chronic GI bleed resolved S/P insertion of IVC (inferior vena caval) filter acute Acute cystitis with hematuria acute Adverse drug reaction acute Bladder mass acute Gross hematuria acute Hematuria acute UTI (urinary tract infection) acute BART (acute kidney injury) re solved Sepsis resolved [facility] Work Phone: Evaluation note* Diagnosis Onset Date Resolution Status Bilateral pulmonary embolism acute S/P insertion of IVC (inferior vena caval) filter acute Barretts esophagus chronic GI bleed resolved S/P insertion of IVC (inferior vena caval) filter acute Bladder mass acute UTI (urinary tract infection) acute Adverse drug reaction resolv ed BART (acute kidney injury) re solved Gross hematuria resolved Sepsis resolved [facility] Work Phone: Evaluation noteNo assessment information available [facility] Work Phone: History and physical note Author Lm Delaney [facility] May 20, 2023 12:30pm Note Date/Time May 20, 2023 12:30pm [facility] Medical Records Department [address] [place] [address] H&P Exam - Hospitalist 05/20/23 1221 MR#: [id number] Acct: [id number] Name: KULWANT ANDRADE Rep #:[id number] : 1940 82 From: Lm Delaney DO PCP: Dr. Jose Hooks MD Status:ADM I N Location: [place] [address] HPI - General General Date of Admission: 05/20/23 Date of Service: 05/20/23 Chief Complaint: dysarthria. weakness. HPI Narrative KULWANT ANDRADE, is a 82 M who presents with dysarthria and weakness. Normally, the patient is very independent and speaks coherently. Patient beginning last night started having dysarthria as well as weakness. Patient was having an issue holding onto objects and dropping and was having shaking trying to hold and manipulates objects. Patient also with weakness in his legs. Had been feeling fine as of last night prior to this beginning. Patient denies any recent illness though he did have RSV about 3 weeks ago. He denies any new medications, denies any diphenhydramine, allergy medications, cold medications, antidepressants. So he presented to the emergency room and underwent neurologicworkup with CT of the head and CTA of the head and neck were unremarkable any acute process. There is ongoing symptoms, the hospital service was contacted and patient being hospitalized. 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 Bigeminy BPH (benign prostatic hyperplasia) CAD (coronary artery disease) Cardiomyopathy in other diseases classified elsewhere D-dimer, elevated DDD (degenerative disc disease) Dyspnea on exertion Edema Essential hypertension Fibromyalgia Hemorrhoid HTN (hypertension) Hyperlipidemia Hypothyroid Nasal sinus polyp Postoperative atrial fibrillation Premature atrial contractions Premature ventricular contraction Pulmonary nodule Syncope White coat syndrome with hypertension Home Medications aspirin 81 mg chewable tablet 81 mg PO DAILY HEART HEALTH 02/22/21 [History Last Taken 05/20/23] pantoprazole 40 mg tablet,delayed release 40 mg PO DAILY ACID REFUX 30 days #30 tabs 03/12/21 [Rx Last Taken 05/20/23] cholecalciferol (vitamin D3) 25 mcg (1,000 unit) capsule 25 mcg PO DAILY SUPPLEMENT 12/25/21 [History Last Taken 05/20/23] levothyroxine 75 mcg tablet 88 mcg PO DAILY@0600 THYROID 06/26/22 [History Last Taken 05/20/23] furosemide 20 mg tablet (Lasix) 20 mg PO DAILY PRN edema, sob, weight gain #60 tabs 11/18/22 [Rx Last Taken Unknown] amlodipine 2.5 mg tablet 2.5 mg PO DAILY BLOOD PRESSURE #60 tabs 01/05/23 [Rx Last Taken 05/20/23] clopidogrel 75 mg tablet 75 mg PO DAILY BLOOD THINNER #30 tabs 01/05/23 [Rx Last Taken 05/20/23] blood pressure monitor #1 ea 01/15/23 [Rx Last Taken Unknown] evolocumab 140 mg/mL subcutaneous pen injector (Repatha SureClick) 140 mg [id number] CHOLESTEROL #2 mL 01/15/23 [Rx Last Taken 05/13/23] ezetimibe 10 mg tablet (Zetia) 10 mg PO DAILY CHOLESTEROL #30 tabs 01/15/23 [Rx Last Taken 05/20/23] metoprolol tartrate 50 mg tablet 50 mg PO BID BLOOD PRESSURE #60 tabs 02/24/23 [Rx Last Taken 05/20/23] Allergy/AdvReac Type Severity Reaction Status Date / Time erythromycin base Allergy Hives Verified 05/20/23 09:04 amoxicillin [From Augmentin] AdvReac Severe Itching Verified 05/20/23 09:04 atorvastatin AdvReac Severe myalgias Verified 05/20/23 09:04 clavulanic acid AdvReac Severe Itching Verified 04/15/23 15:28 [From Augmentin] fenofibrate [From Tricor] AdvReac Severe myalgias Verified 05/20/23 09:04 levofloxacin [From Levaquin] AdvReac Unknown Unknown Verified 05/20/23 09:04 Family History Father CVA (cerebral vascular accident) Hypertension Heart disease Mother CAD (coronary artery disease) Brother Hypertension Brother CAD (coronary artery disease) Hypertension Sister Hypertension Sister Patent foramen ovale Sister Hypertension Lung cancer Other Dyspnea on exertion Surgical History H/O hemorrhoidectomy History of back surgery History of cholecystectomy History of coronary artery bypass graft x 3 (~02/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 Vital Signs Vital Signs Vital Signs: 05/20/23 08:41 05/20/23 08:42 05/20/23 08:42 Temperature 36.6 C 36.6 C 36.6 C Temperature Source Temporal Temporal Temporal Pulse Rate 77 77 77 Respiratory Rate 18 18 18 Blood Pressure 146/98 H 146/98 H 146/98 H Blood Pressure Mean 114 114 114 Pulse Ox 96 96 96 Oxygen Delivery Method Room Air Room Air Room Air 05/20/23 09:12 05/20/23 09:30 05/20/23 10:00 Temperature Temperature Source Pulse Rate 75 73 76 Respiratory Rate 16 18 18 Blood Pressure 122/81 H 142/87 H 126/82 H Blood Pressure Mean 94 105 96 Pulse Ox 94 94 94 Oxygen Delivery Method Room Air Room Air Room Air 05/20/23 10:30 05/20/23 11:00 05/20/23 11:30 Temperature 36.7 C 36.7 C Temperature Source Temporal Temporal Pulse Rate 78 80 79 Respiratory Rate 16 18 16 Blood Pressure 134/83 H 137/91 H 142/91 H Blood Pressure Mean 100 106 108 Pulse Ox 94 95 95 Oxygen Delivery Method Room Air Room Air Room Air 05/20/23 12:00 05/20/23 12:00 Temperature 36.7 C 36.7 C Temperature Source Temporal Pulse Rate 82 82 Respiratory Rate 16 16 Blood Pressure 144/84 H 144/84 H Blood Pressure Mean 104 104 Pulse Ox 94 94 Oxygen Delivery Method Room Air Weight Weight: 78.5 kg Body Mass Index (BMI) 24.8 Physical Exam Const alert and no apparent distress HEENT normocephalic and head/scalp atraumatic HEENT Narrative: Noted tongue bruising as well as tongue fasciculations. Eyes PERRL and EOMs intact bilaterally Eyes Narrative: Intact vertical saccades. She impaired lateral eye movement to the right that was slowed but was present. Neck no lymphadenopathy Neck Narrative: No thyromegaly Resp normal respiratory effort, no retractions, no use of accessory muscles and clearto auscultation bilaterally Cardio regular rate, regular rhythm, S1 normal heart sound and S2 normal heart sound GI normal to inspection, nondistended, normoactive bowel sounds, soft to palpation,non-tender and non-distended Extremity normal to inspection and full ROM Skin Skin Narrative: No rashes or lesions Neuro oriented x3, CN's II-XII intact bilaterally and moves all extremities Neuro Narrative: Noted dysarthria but coherent. Muscle strength is 4-5 in upper and lower extremities. Would giveaway but is able to raise it back up on his own. Sensorium / Orientation: awake and alert Psych affect normal Results Lab / Micro Data Attestation: I reviewed the patient's lab results. 05/20/23 08:28 05/20/23 08:28 Labs: Laboratory Results - last 24 hr 05/20/23 08:28: WBC 9.1, RBC 4.86, Hgb 15.2, Hct 46.3, MCV 95.3 H, MCH 31.3, MCHC 32.8, RDW Std Deviation 44.9 H, RDW Coeff of Sukumar 12.8, Plt Count 265, MPV 9.3, Immature Gran % (Auto) 0.600, Neut % (Auto) 79.6 H, Lymph % (Auto) 9.3 L, [place] % (Auto) 8.9, Eos % (Auto) 1.0, Baso % (Auto) 0.6, Absolute Neuts (auto) 7.2, Absolute Lymphs (auto) 0.84, Nucleated RBC % 0, PT 13.6, INR 1.0, APTT 29.4, Sodium 139, Potassium 3.9, Chloride 109 H, Carbon Dioxide 22.0, Anion Gap 8, BUN 23 H, Creatinine 1.59 H, Estim Creat Clear Calc 38.26, Est GFR (MDRD) Af Amer 54 L, Est GFR (MDRD) Non-Af 45 L, BUN/Creatinine Ratio 14.5, Glucose 139 H,Calcium 9.0, Troponin I High Sens 6 05/20/23 10:50: Urine Color Yellow, Urine Clarity Clear, Urine pH 7.0, Ur Specific [place] 1.010, Urine Protein 15 H, Urine Glucose (UA) Normal, Urine Ketones Negative, Urine Occult Blood 25 H, Urine Nitrite Negative, Urine Bilirubin Negative, Urine Urobilinogen 1 H, Ur Leukocyte Esterase Negative, Urine RBC 0-5 SEEN, Urine WBC 0 SEEN, Ur Squamous Epith Cells 0 SEEN, Urine Bacteria 0 SEEN, Urine Mucus 0 SEEN Imagaing Radiology Impression Brain CT 05/20/23 08:42 IMPRESSION: Chronic involutional changes of the brain. N.B. : The above Results were Read Back by Charanjit Smith MD to Rl Cadena and understanding confirmed on 05/20/2023 09:01:17 (ET). Electronically Signed: Charanjit Smith MD at 9:03 EST , ADDENDUM: 05/20/23 0910 IMPRESSION: Chronic involutional changes of the brain. N.B. : The above Results were Read Back by Charanjit Smith MD to Rl Cadena and understanding confirmed on 05/20/2023 09:01:17 (ET). Electronically Signed: Charanjit Smith MD at 9:03 EST , Head/Neck CTA 05/20/23 08:42 IMPRESSION: Atherosclerotic calcific plaques at the origin of the left internal carotid artery causing between 50 and 69% stenosis. Mild calcific plaque at the origin of the right internal carotid artery causing less than 50% stenosis. Electronically Signed: Charanjit Smith MD at 9:08 EST , ADDENDUM: 05/20/23 0916 IMPRESSION: Atherosclerotic calcific plaques at the origin of the left internal carotid artery causing between 50 and 69% stenosis. Mild calcific plaque at the origin of the right internal carotid artery causing less than 50% stenosis. N.B. : The above Results were Read Back by Charanjit Smith MD to Dr Surinder DO, and understanding confirmed on 05/20/2023 09:09:48 (ET). Electronically Signed: Charanjit Smith MD at 9:08 EST , Chest X-Ray 05/20/23 09:28 IMPRESSION: Increased markings at the right lung base suggestive of atelectasis and/or early infiltrate superimposed on scarring. Electronically Signed: Charanjit Smith MD at 10:05 EST , Assessment & Plan Assessment/Plan (1) Dysarthria: PLAN: Plan Dysarthria * With associated weakness. Patient has fasciculations of his tongue. Is unclear of the significance of this. But would be beneficial to proceed with a stroke workup including an MRI and echocardiogram. Patient is already on aspirin and clopidogrel and will continue with those medications. * Will check an EEG as patient did bite his tongue. Unclear if that was related with prior jaw fasciculations that he was having with this. * Other concerns could include other neurologic diseases such as Parkinson's, PSP, ALS etc. Seems unlikely as this was been in rapid onset and patient has not had any prior history of this in the past. No clear medications that would be contributing to this as well. * Speech therapy * Will check a TSH and ammonia level. Weakness * Unclear etiology but likely tied into the dysarthria somehow. * PT OT evaluate and treat Chronic additions * Hypertension: Hold off on metoprolol and amlodipine until the . * Hypothyroidism: Continue with levothyroxine VTE prophylaxis: Subcu heparin. CODE STATUS: Addressed with the patient. Patient was to be full code. Charges/Coding Visit Charges Inpatient E&M: 82979 Init Hosp L3 05/20/23 1230 <Electronically signed by Lm Delaney DO> Cosigner Signature (if applicable): CC: Dr. Lm Delaney DO; Dr. Jose Hooks MD~ Signed [facility] Work Phone: Hospital course Narrative No data available for this section [facility] Discharge instructionsAmbulatory Orders* Phase II, Outpatient Cardiac Rehab Location: None Selected [facility] Work Phone: Hospital Discharge instructions No data available for this section [facility] Discharge instructions Additional Instructions May discharge to a SNF.[facility] Work Phone: Hospital Discharge instructions Additional Instructions If you continue to have significant discomfort call the orthopedic surgeons office to see if you can get an appointment sooner than scheduled.[facility] Work Phone: Instructions* Name Dates Details How to access health informa tion online Indication:Essential hypertension Start:21-Nov-2015 Instruction Type:Patient Education How to access health informa tion online - Detail Indication:Essential hypertension Start:21-Nov-2015 Instruction Type:Patient Education Patient Instructions Indication:Essential hypertension Start:21-Nov-2015 Instruction Type:Provider Instructions for Treatment Patient Instructions Indication:Essential hypertension Start:07-Nov-2015 Instruction Type:Provider Instructions for Treatment How to access health informa tion online Indication:Essential hypertension Start:24-Oct-2015 Instruction Type:Patient Education How to access health informa tion online - Detail Indication:Essential hypertension Start:24-Oct-2015 Instruction Type:Patient Education Patient Instructions Indication:Essential hypertension Start:24-Oct-2015 Instruction Type:Provider Instructions for Treatment How to access health informa tion online - Detail Indication:Essential hypertension with goal blood pressure less than 130/80 Start:15-Oct-2015 Instruction Type:Patient Education Patient Instructions Indication:Essential hypertension with goal blood pressure less than 130/80 Start:15-Oct-2015 Instruction Type:Provider Instructions for Treatment How to access health informa tion online Indication:Essential hypertension with goal blood pressure less than 130/80 Start:15-Oct-2015 Instruction Type:Patient Education How to access health informa tion online Indication:Malignant hypertension Start:08-Oct-2015 Instruction Type:Patient Education How to access health informa tion online - Detail Indication:Malignant hypertension Start:08-Oct-2015 Instruction Type:Patient Education Patient Instructions Indication:Malignant hypertension Start:08-Oct-2015 Instruction Type:Provider Instructions for Treatment How to access health informa tion online Indication:Acute nonintractable headache, unspecified headache type Start:03-Oct-2015 Instruction Type:Patient Education How to access health informa tion online - Detail Indication:Acute nonintractable headache, unspecified headache type Start:03-Oct-2015 Instruction Type:Patient Education Patient Instructions Indication:Acute nonintractable headache, unspecified headache type Start:03-Oct-2015 Instruction Type:Provider Instructions for Treatment How to access health informa tion online Indication:Swelling of limb Start:08-Aug-2015 Instruction Type:Patient Education How to access health informa tion online - Detail Indication:Swelling of limb Start:08-Aug-2015 Instruction Type:Patient Education Patient Instructions Indication:Swelling of limb Start:08-Aug-2015 Instruction Type:Provider Instructions for Treatment How to access health informa tion online Indication:Hypercholesterolemia Start:13-Jun-2015 Instruction Type:Patient Education How to access health informa tion online - Detail Indication:Hypercholesterolemia Start:13-Jun-2015 Instruction Type:Patient Education Patient Instructions Indication:Hypercholesterolemia Start:13-Jun-2015 Instruction Type:Provider Instructions for Treatment How to access health informa tion online Indication:Hypercholesterolemia Start:24-Jan-2015 Instruction Type:Patient Education How to access health informa tion online - Detail Indication:Hypercholesterolemia Start:24-Jan-2015 Instruction Type:Patient Education Patient Instructions Indication:Hypercholesterolemia Start:24-Jan-2015 Instruction Type:Provider Instructions for Treatment How to access health informa tion online Indication:ACUTE PHARYNGITIS (462.) Start:05-Oct-2014 Instruction Type:Patient Education How to access health informa tion online - Detail Indication:ACUTE PHARYNGITIS (462.) Start:05-Oct-2014 Instruction Type:Patient Education Patient Instructions Indication:ACUTE PHARYNGITIS (462.) Start:05-Oct-2014 Instruction Type:Provider Instructions for Treatment Patient Instructions Indication:Hypercholesterolemia Start:27-Sep-2014 Instruction Type:Provider Instructions for Treatment Patient Instructions Indication:Hypercholesterolemia Start:27-Jun-2014 Instruction Type:Provider Instructions for Treatment Patient Instructions Indication:Essential hypertension with goal blood pressure less than 130/80 Start:24-Feb-2014 Instruction Type:Provider Instructions for Treatment Patient Instructions Indication:Essential hypertension with goal blood pressure less than 130/80 Start:21-Oct-2013 Instruction Type:Provider Instructions for Treatment Patient Instructions Indication:Essential hypertension with goal blood pressure less than 130/80 Start:30-Jun-2013 Instruction Type:Provider Instructions for Treatment Patient Instructions Indication:Essential hypertension with goal blood pressure less than 130/80 Start:22-Feb-2013 Instruction Type:Provider Instructions for Treatment Patient Instructions Indication:Hypothyroidism Start:22-Oct-2012 Instruction Type:Provider Instructions for Treatment Patient Instructions Indication:Vitamin D deficiency, unspecified Start:21-Jun-2012 Instruction Type:Provider Instructions for Treatment Patient Instructions Indication:Fibromyalgia Start:19-Mar-2012 Instruction Type:Provider Instructions for Treatment Sore throat: diagnosis and treatment Indication:ACUTE PHARYNGITIS (462.) Start:05-Jul-2008 Instruction Type:Patient Education Sore throat: diagnosis and treatment Indication:ACUTE PHARYNGITIS (462.) Start:20-May-2007 Instruction Type:Patient Education [facility] Work Phone: progress note No data available for this section [facility] Progress note Author Melody Whitmore [facility] Services Note Date/Time November 01, 2024 10:04 am [facility] [address] [place] [address] OFFICE VISIT Date of Service: 11/01/24 MR#: [id number] Acct: [id number] Name: KULWANT ANDRADE Rep #: [id number] : 1940 Provider: Dr. Jamel Whitmore MD Age/Sex: 84/M [place] [facility] [place] Status: Signed HPI HPI History of Present Illness Details: This gentleman with history of coronary artery disease status post CABG, noted to have atretic SPRINGER to the LAD on angiography in 2022, 100% SVG to the obtuse marginal and patent SVG to the RCA, status post REKHA to the proximal and mid LAD,is here for follow-up visit. Denies any chest pains or shortness of breath. No palpitations. No orthopnea or PND. No ankle edema. Patient does complain of being tired and fatigued. 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 Required: No Accompanied by: Self Is patient in pain?: Yes (-10/08; left knee; s/p surgical procedure) Allergies erythromycin base Allergy (Verified 11/01/24 09:36) Hives amoxicillin (From Augmentin) Adverse Reaction (Severe, Verified 11/01/24 09:36) Itching atorvastatin Adverse Reaction (Severe, Verified 11/01/24 09:36) myalgias clavulanic acid (From Augmentin) Adverse Reaction (Severe, Verified 11/01/24 09:36) Itching fenofibrate (From Tricor) Adverse Reaction (Severe, Verified 11/01/24 09:36) myalgias levofloxacin (From Levaquin) Adverse Reaction (Unknown, Verified 11/01/24 09:36) Unknown Medications ?Medication ?Instructions ?Recorded ?Confirmed ?Type blood pressure monitor #1 ea 01/15/23 11/01/24 Rx levothyroxine 88 mcg tablet 88 mcg PO DAILY THYROID 11/01/24 History diphenhydramine 25 2 tab PO QHS Sleep 09/30/23 11/01/24 History mg-acetaminophen 500 mg tablet (Tylenol PM Extra Strength) metoprolol tartrate 25 mg tablet 25 mg PO BID BLOOD HI ESSURE #60 03/21/24 11/01/24 Rx tabs cholecalciferol (vitamin D3) 50 50 mcg PO DAILY supple ment 04/25/24 11/01/24 History mcg (2,000 unit) capsule doxycycline hyclate 100 mg tablet 100 mg PO BID infect ion - groin ? 04/25/24 11/01/24 History ascorbate calcium (vitamin C) 500 500 mg PO QDAY #90 t abs 05/18/24 11/01/24 Rx mg tablet ferrous sulfate 325 mg (65 mg 325 mg PO QDAY #90 tabs 05/18/24 11/01/24 Rx iron) tablet pantoprazole 40 mg tablet,delayed 40 mg PO QDAY stomac h 1 month #30 05/18/24 11/01/24 Rx release tabs hydrocodone-acetaminophen 5-325mg 1 tab PO Q6H PRN PRN Pain 3 days 08/16/24 11/01/24 Rx 5mg-325mg #10 TABLETS apixaban 5 mg tablet (Eliquis) 5 mg PO BID 11/01/24 History escitalopram oxalate 20 mg tablet 20 mg PO QHS 5 11/01/24 History naproxen 500 mg tablet 500 mg PO BID 11/01/2411/01 History tramadol 50 mg tablet 25 mg PO Q6 PRN pain 5 11/01/24 History Ejection fraction %: 65 Have you fallen in the past year?: No PFSH Medical History (Updated 11/01/24 @ 10:[address] 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 Wears glasses Thyroid disease History of steroid therapy Prostate disease Bladder disease High cholesterol History of echocardiogram History of stress test Cardiology follow-up encounter H/O Legionnaire's disease (~2018) [place] filter in place Kidney stones GI bleed Pulmonary embolism Coronary artery disease TIA (transient ischemic attack) Postoperative atrial fibrillation Atherosclerotic heart disease of hughes coronary artery without angina pectoris CAD (coronary artery disease) Pulmonary nodule D-dimer, elevated Edema Dyspnea on exertion Essential hypertension BPH (benign prostatic hyperplasia) Nasal sinus polyp DDD (degenerative disc disease) Fibromyalgia Syncope White coat syndrome with hypertension 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 Hemorrhoid Premature ventricular contraction [place] Cardiomyopathy in other diseases classified elsewhere Hyperlipidemia Premature atrial contractions Hypothyroid Acid reflux HTN (hypertension) Surgical History S/P knee surgery History of cardiac catheterization (~02/22/21) Hx of CABG (~2018) History of coronary artery stent placement History of placement of stent in LAD coronary artery (01/05/23) History of coronary artery bypass graft x 3 (~02/26/21) History of radiofrequency ablation procedure for cardiac arrhythmia (~10/2002) History of cholecystectomy Hx of appendectomy History of kidney surgery (~2001) History of back surgery (~1999) H/O hemorrhoidectomy Family History Father CVA (cerebral vascular accident) Hypertension Heart disease Mother CAD (coronary artery disease) Brother Hypertension Brother CAD (coronary artery disease) Hypertension Sister Hypertension Sister Patent foramen ovale Sister Hypertension Lung cancer Other Dyspnea on exertion Social History household members: none Smoking Status: Never smoker alcohol intake: never substance use type: does not use ROS Const Const: Positive for fatigue and weakness; Negative for headache(s) or weight gain ENT ENT: Positive for balance problems (with orthopedic limitations to L Knee); Negative for headache(s), dizziness or Nosebleed/epistaxis Cardio Chest Pain: No Palpitations: No Edema: None Muscle aches with walking: None Resp Respiratory: Negative for SOB with activity, SOB at rest or SOB orthopneaundefinedSOB lying down GI GI: Negative nausea, vomiting or heartburn Musc Musc: Positive for muscle weakness, joint pain (L Knee) and balance problems (with orthopedic limitations to L Knee); Negative for muscle aches/ myalgia Neuro Neuro: Positive for weakness; Negative for dizziness, lightheadedness, near syncope, syncope or headache(s) Endo Endo: Positive for fatigue Psych Psych: Positive for depression Cardiology Exam Const Appearance: comfortable and no acute distress Nutritional Appearance: well nourished Neck Neck: no JVD Carotids: Negative bruit Chest Auscultation: Bilateral: Clear to Auscultation Cardio Rate: regular rate Rhythm: regular rhythm Heart sounds: S1 normal and S2 normal Neuro General: patient alert, patient awake and patient oriented x3 Extremities Lower Extremity Edema: None: Bilateral Supplemental Info Supplemental Information Echocardiogram 03/07/2024: Interpretation Summary The left ventricular ejection fraction is 65 %. Diastolic function is indeterminate. The left atrium is severely enlarged. The right atrium is mildly enlarged. Mild-Moderate (1-2+) mitral valve insufficiency. Mild tricuspid valve insufficiency. Right ventricular systolic pressure estimated to be 42 mmHg. ECHOCARDIOGRAM 11/11/2022: Interpretation Summary The left ventricular ejection fraction is 60 %. The left atrium is mildly enlarged. Mild (1+) mitral valve insufficiency. Mild tricuspid valve insufficiency. Mild (1+) pulmonic valve insufficiency. Mildly dilated aortic root. STRESS TEST 11/11/22: Perfusion SPECT analysis: Review of the stress images demonstrate normal uptake of tracer noted in all areas of the myocardium. The resting images similarly demonstrate normal uptakeof tracer noted in all areas of the myocardium. No areas of reversibility are noted to suggest ischemia no previous infarct was noted. Gated SPECT analysis: The gated ejection fraction is 74%. Conclusion: Normal exercise myocardial perfusion stress test at a moderate workload Preserved ejection fraction. Stress Test 11-08-2020: Impression: 1. Pharmacologic (Regadenoson) evaluation 2. Peak pharmacologic ECG with no obvious ECG changes. 3. There was an occasional PVC during recovery. 4. Nuclear images pending Interpretation: Rest and stress SPECT Cardiolite nuclear imaging status post realignment, normalization, and attenuation correction demonstrate the appearance of body motion during image acquisition. At rest there appears to be relative uniform tracer uptake and myocardial perfusion appearing within normal limits. Status post stress there is notation of diminished myocardial perfusion/tracer uptake in the distal inferolateral lateral apical segments. There are similar type findings on the stress polar map images.. There is end systolic thickening and brightening. The gated Cardiolite study demonstrates myocardial thickening and inward wall motion. The reported LVEF is 83%. Impression: 1. Rest and stress SPECT cardiac nuclear imaging demonstrate an element of bodymotion during image acquisition as well as post stress an element of diminished myocardial perfusion/tracer uptake in portions of the distal inferolateral/lateral apical segments concerning for stress-induced myocardial ischemia, however, based upon the body motion during image acquisition an element of shifting soft tissue attenuation/artifact cannot necessarily be excluded. 2. The gated Cardiolite study reports an LVEF of 83%. Echocardiogram 11/08/2020: Left ventricular systolic function is normal. The estimated ejection fraction is 65 %. The left atrium is mildly enlarged. There is mild mitral annular calcification. Trivial mitral valve insufficiency. Trivial tricuspid valve insufficiency. Trivial pulmonic valve insufficiency. Right ventricular systolic pressure estimated to be 34 mmHg. No evidence for diastolic dysfunction. 48-Hour Holter Monitor Summary 03/16/2024: Interpretation: There were a total of [id number] beats recorded over the 48 hour period. Normal Sinus Rhythm with periods of PVCs and rare PACs. Average heart rate was 59 BPM Minimum heart rate was 37 BPM at 0327 AM D1, sinus bradycardia Maximum heart rate was 88 BPM at 1638 PM D1 There were a total of 9582 premature ventricular ectopic isolated beats, comprising of 6.0% of the total QRS complexes. 2 ventricular runs noted. The longest run consisted of 6 beats with a maximum heart rate of 95 BPM D2. The fastest run consisted of 4 beats with a maximum heart rate of 103 BPM D2. 26 triplets noted, 2 interpolated beats, 492 bigeminy and 78 trigeminal beats. 669 couplets noted. There were a total of 771 premature supraventricular ectopic isolated beats, comprising of 0.5% of the total QRS complexes. 1 dropped beat consisting of 3.4 seconds of the longest R-R interval at 0707 AM D1. No atrial fibrillation noted. Provider Comments: 3.4 second pause Cardiac Catheterization 02/22/2021 CONCLUSIONS Elevated Left Ventricular End Diastolic Pressure Normal LV size, wall motion,and systolic function LVEF: by LV gram 55 % [place] Multivessel CAD Collateral Flow: left to right RECOMMENDATIONS Medical therapy Surgery consult for coronary revascularization CORONARY ANGIOGRAPHY DOMINANCE: Right Dominant LEFT HEART ASSESSMENT Left Ventricular Ejection Fraction: by LV Gram 55 % Normal LV wall motion Elevated Left Ventricular End Diastolic Pressure LVEDP: 26 mmHg LEFT MAIN: Angiographically normal LEFT ANTERIOR DESCENDING ARTERY: PROX LAD: somewhat long: diffuse: 85 % Stenosis, 25 % Stenosis MID LAD: s/p SP: eccentric: 25 % Stenosis, 25 % Stenosis CIRCUMFLEX ARTERY: OM 1: Proximal - somewhat long: diffuse: prebirfurcation: 90 % Stenosis RIGHT CORONARY ARTERY: PROX RCA: long: diffuse: 90 % Stenosis RT PDA: Distal - small vessel: 75 % Stenosis COLLATERAL FLOW: Collateral flow from Left to Right AORTIC ROOT: Angiographically normal COMPLICATIONS CABG 02/26/2021 [facility]: SPRINGER to the LAD SVG to OM1 SVG to the PDA Assessment and Plan Assessment and Plan (1) Coronary artery disease: Status: Chronic Plan: Status post CABG. SPRINGER to LAD atretic. Status post-REKHA to the proximal and midLAD in 2022. SVG to RCA patent. SVG to obtuse marginal totally occluded. Obtuse marginal and filling retrogradely via home collaterals from the left system. Continue beta-blockers. In view of his fatigue with borderline blood pressure, DC amlodipine. Decrease metoprolol to extended release 25 mg once daily. Start enteric-coated aspirin 81 mg daily. Patient intolerant of statins. Refuses to trial. Start on Tricor. Check lipidprofile in 3 months. 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 Grewal @ [facility] 02/26/21 Plan: See #1 above. (3) Hyperlipidemia: Status: Inactive Qualifiers: Hyperlipidemia type: unspecified Qualified Code(s): E78.5 - Hyperlipidemia, unspecified Plan: Intolerant of statins and Repatha with myalgias. Try Tricor. (4) Essential hypertension: Status: Inactive Plan: Blood pressure borderline. DC amlodipine. Decrease metoprolol to 25 mg extended release once daily. (5) Chronic kidney disease: Status: Chronic Plan: Continue to monitor. (6) History of DVT (deep vein thrombosis): Status: Chronic Plan: On apixaban. Continue to manage as per PCP/vascular. Plan Details Follow Up: 6 Months Coding Level of Care Code Off vis,est,level 4 Diagnoses Coronary artery disease I25.10 History of coronary artery bypass graft x 3 Z95.1 Hyperlipidemia, unspecified hyperlipidemia type E78.5 Hyperlipidemia type: unspecified Essential hypertension I10 Chronic kidney disease N18.9 History of DVT (deep vein thrombosis) Z86.718 Coding Level of Care Code Off vis,est,level 4 Diagnoses Coronary artery disease I25.10 History of coronary artery bypass graft x 3 Z95.1 Hyperlipidemia, unspecified hyperlipidemia type E78.5 Hyperlipidemia type: unspecified Essential hypertension I10 Chronic kidney disease N18.9 History of DVT (deep vein thrombosis) Z86.718 Clinical Quality Measures Falls Risk Screening/Assistive Devices Have you fallen in the past year?: No Cardiac Ejection fraction %: 65 11/01/24 1005 <Electronically signed by Melody Whitmore MD> Date _ Melody Whitmore MD Cosign Signature: Date (if applicable) CC: 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-C Juan Rodriguez ~ [facility] Work Phone: Reason for referral (narrative)No reason for referral information availableWCleveland [facility] Work Phone: Summary Purpose Family History No Family History Records FoundUnknown Family Member Name Dates Details Brother 1 Comments:Colon cancer Status:Active Father Comments: at 93 of heart faiilure Status:Active Mother Comments: in her 70s fro m goiter & heart failure Status:Active Sister 1 Comments: at 49 from abrahan g cancer Status:Active Sister 2 Comments: in her 60s fro m breast cancer Status:Active Sister 3 Comments:Brain tumor Status:Active Relationship Condition Age at Onset Recorded Date/T james father Cerebrovascular accident (CVA) Unknown Hypertension Unknown Cardiac disease Unknown mother Coronary artery disease Unknown brother Hypertension Unknown brother Coronary artery disease Unknown sister Hypertension Unknown sister Patent foramen ovale Unknown Malignant neoplasm of lung Unknown Relationship Condition Age at Onset Recorded Date/T james Not Specified Dyspnea on exertion Unknown father Cerebrovascular accident (CVA) Unknown Hypertension Unknown Cardiac disease Unknown mother Coronary artery disease Unknown brother Hypertension Unknown brother Coronary artery disease Unknown sister Hypertension Unknown sister Patent foramen ovale Unknown Malignant neoplasm of lung Unknown Advance Directives No Advanced Directives Records Found Advance Directive Response Recorded Date/ Time Name of Medical Power of Gaming Dealer daughter May 16, 2021 1:22pm Advance Directives Yes January 7:38am Living Will Yes July 09 9:40am Power of Gaming Dealer Yes July 09, 2021 9:40am Advance Directive Response Recorded Date/ Time Advance Directives Yes January 7:38am Living Will Yes July 09 9:40am Power of Gaming Dealer Yes July 09, 2021 9:40am Advance Directive Response Recorded Date/ Time Advance Directives Yes January 6:38am Living Will Yes July 09 8:40am Power of Gaming Dealer Yes July 09, 2021 8:40am Advance Directive Response Recorded Date/ Time Advance Directives No December 15 9:35am Living Will No December 15, 2022 9:35am Power of Gaming Dealer No December 15 9:35am Advance Directive Response Recorded Date/ Time Advance Directives on File Yes 2022 7:21am Name of Medical Power of Gaming Dealer Luna valdez er January 05, 2023 7:21am Advance Directives Yes January 05 023 7:21am Living Will Yes January 05, 2023 7:21am Power of Gaming Dealer Yes January 05 7:21am Advance Directive Response Recorded Date/ Time Advance Directives on File Yes 2022 1:14pm Advance Directives Yes January 05 023 7:21am Living Will Yes January 12 1:14pm Power of Gaming Dealer Yes January 12 023 1:14pm Advance Directives on File Yes 2022 7:21am Name of Medical Power of Gaming Dealer Luna [place] er January 05, 2023 7:21am Advance Directive Response Recorded Date/ Time Advance Directives on File Yes t 2022 12:14pm Advance Directives Yes January 05, 2 023 6:21am Living Will Yes January 12 12:14pm Power of Gaming Dealer Yes January 12, 023 12:14pm Advance Directives on File Yes 2022 6:21am Name of Medical Power of Gaming Dealer Luna daught er January 05, 2023 6:21am Advance Directive Response Recorded Date/ Time Advance Directives on File Yes Augus t 2022 12:14pm Advance Directives Yes January 05, 023 6:21am Living Will Yes January 12 12:14pm Power of Gaming Dealer Yes January 12, 2 023 12:14pm Advance Directive Response Recorded Date/ Time Name of Medical Power of Gaming Dealer luna Mast May 20, 2023 12:37pm Advance Directives Yes January 05, 2 023 6:21am Living Will Yes May 20, 023 12:37pm Power of Gaming Dealer Yes May 20, 2023 12:37pm Advance Directive Response Recorded Date/ Time Name of Medical Power of Gaming Dealer luna Mast May 20, 2023 12:37pm Name of Medical Power of Gaming Dealer Luna Mast May 29, 2023 2:38pm Advance Directives Yes January 05, 2 023 6:21am Living Will Yes May 29 023 2:38pm Power of Gaming Dealer Yes May 29, 2023 2:38pm Advance Directive Response Recorded Date/ Time Name of Medical Power of Gaming Dealer luna Mast May 20, 2023 12:37pm Name of Medical Power of Gaming Dealer Luna Mast May 29, 2023 5:26pm Advance Directives Yes January 05, 2 023 6:21am Living Will Yes May 29, 023 5:26pm Power of Gaming Dealer Yes May 29, 2023 5:26pm Advance Directive Response Recorded Date/ Time Advance Directives on File Yes Junroyce 2023 9:05am Name of Medical Power of Gaming Dealer Luna daught er June 03, 2023 9:05am Advance Directives Yes June 03, 2023 9:05am Living Will Yes June 03 9:05am Power of Gaming Dealer Yes June 03 024 9:05am Name of Medical Power of Gaming Dealer luna Mast May 20, 2023 12:37pm Name of Medical Power of Gaming Dealer Luna Mast May 29, 2023 5:26pm Advance Directive Response Recorded Date/ Time Advance Directives on File Yes 2023 10:05am Name of Medical Power of Gaming Dealer Luna daught er June 03, 2023 10:05am Advance Directives Yes June 03, 2023 10:05am Living Will Yes June 03 10:05am Power of Gaming Dealer Yes June 03 024 10:05am Name of Medical Power of Gaming Dealer luna Mast May 20, 2023 1:37pm Name of Medical Power of Gaming Dealer Luna Mast May 29, 2023 6:26pm Advance Directive Response Recorded Date/ Time Advance Directives on File Yes 2023 10:05am Name of Medical Power of Gaming Dealer Luna daught er June 03, 2023 10:05am Name of Medical Power of Gaming Dealer LUNA MAST September 30, 2023 9:59am Advance Directives Yes June 03, 2023 10:05am Living Will Yes September 30, 2023 9: 59am Power of Gaming Dealer Yes September 30, 2023 9:59am Advance Directive Response Recorded Date/ Time Name of Medical Power of Gaming Dealer LUNA MAST September 30, 2023 5:02pm Advance Directives Yes June 03, 2023 10:05am Living Will Yes September 30, 2023 5: 02pm Power of Gaming Dealer Yes September 30, 2023 5:02pm Advance Directive Response Recorded Date/ Time Living Will Yes April 25, 024 1:55pm Power of Gaming Dealer Yes April 25, 2024 1:55pm Name of Medical Power of Gaming Dealer LUNA MAST April 25, 2024 1:55pm Living Will Yes August 16, 2024 5:42pm Power of Gaming Dealer Yes August 16 5:42pm Name of Medical Power of Gaming Dealer ? August 16, 2024 5:42pm Advance Directives Yes June 03, 2023 10:05am Advance Directive Response Recorded Date/ Time Living Will Yes August 16, 2024 5:42pm Do you have a Healthcare Power of Gaming Dealer? Yes August 16, 2024 5:42pm Name of Medical Power of Gaming Dealer ? August 16, 2024 5:42pm Advance Directives Yes June 03, 2023 10:05am Advance Directive Response Recorded Date/ Time Do you have a Healthcare Power of Gaming Dealer? Yes November 14, 2024 4:00pm Living Will Yes August 16, 2024 5:42pm Do you have a Healthcare Power of Gaming Dealer? Yes August 16, 2024 5:42pm Name of Medical Power of Gaming Dealer ? August 16, 2024 5:42pm Advance Directives Yes June 03, 2023 10:05am Chief Complaint and Reason for Visit Chief Complaint 2 units PRBCS 6 MO F/U (WITH PFM) LEFT LEG 6 wk FU S/P CABG LLE DVT S/P CABG S/P CABG Reason for Visit Atherosclerotic hear t disease of hughes coronary artery without angina pectoris History of coronary artery bypass graft x 3 Postoperative atrial fibrillation Essential hypertension Hyperlipidemia Atherosclerotic heart disease of hughes coronary artery without angina pectoris History of coronary artery bypass graft x 3 Postoperative atrial fibrillation Essential hypertension Hyperlipidemia Chief Complaint 6 MO F/U (WITH PFM) LEFT LEG 6 wk FU S/P CABG LLE DVT S/P CABG S/P CABG S/P CABG Reason for Visit Atherosclerotic hear t disease of hughes coronary artery without angina pectoris History of coronary artery bypass graft x 3 Postoperative atrial fibrillation Essential hypertension Hyperlipidemia Atherosclerotic heart disease of [place] coronary artery without angina pectoris History of coronary artery bypass graft x 3 Postoperative atrial fibrillation Essential hypertension Hyperlipidemia Chief Complaint 6 wk FU S/P CABG LLE DVT S/P CABG S/P CABG S/P CABG 3 M FU Reason for Visit Atherosclerotic hear t disease of hughes coronary artery without angina pectoris History of coronary artery bypass graft x 3 Postoperative atrial fibrillation Essential hypertension Hyperlipidemia Atherosclerotic heart disease of hughes coronary artery without angina pectoris Diminished pulses in lower extremity History of coronary artery bypass graft x 3 Myalgia Postoperative atrial fibrillation Essential hypertension Hyperlipidemia Chief Complaint 6 wk FU S/P CABG LLE DVT S/P CABG S/P CABG S/P CABG 3 M FU CLAUDICATION Reason for Visit Atherosclerotic hear t disease of hughes coronary artery without angina pectoris History of coronary artery bypass graft x 3 Postoperative atrial fibrillation Essential hypertension Hyperlipidemia Atherosclerotic heart disease of hughes coronary artery without angina pectoris Diminished pulses in lower extremity History of coronary artery bypass graft x 3 Myalgia Postoperative atrial fibrillation Essential hypertension Hyperlipidemia Chief Complaint 6 wk FU S/P CABG LLE DVT S/P CABG S/P CABG S/P CABG 3 M FU CLAUDICATION WEAKNESS Reason for Visit Atherosclerotic hear t disease of hughes coronary artery without angina pectoris History of coronary artery bypass graft x 3 Postoperative atrial fibrillation Essential hypertension Hyperlipidemia Atherosclerotic heart disease of hughes coronary artery without angina pectoris Diminished pulses in lower extremity History of coronary artery bypass graft x 3 Myalgia Postoperative atrial fibrillation Essential hypertension Hyperlipidemia Chief Complaint 6 wk FU S/P CABG LLE DVT S/P CABG S/P CABG S/P CABG 3 M FU CLAUDICATION WEAKNESS ACUTE ON CHRONIC RENAL FAILURE Reason for Visit Atherosclerotic hear t disease of hughes coronary artery without angina pectoris History of coronary artery bypass graft x 3 Postoperative atrial fibrillation Essential hypertension Hyperlipidemia Atherosclerotic heart disease of [place]hes coronary artery without angina pectoris Diminished pulses in lower extremity History of coronary artery bypass graft x 3 Myalgia Postoperative atrial fibrillation Essential hypertension Hyperlipidemia Chief Complaint S/P CABG S/P CABG S/P CABG 3 M FU CLAUDICATION WEAKNESS ACUTE ON CHRONIC RENAL FAILURE WEAKNESS Reason for Visit Atherosclerotic hear t disease of hug[place] coronary artery without angina pectoris Diminished pulses in lower extremity History of coronary artery bypass graft x 3 Myalgia Postoperative atrial fibrillation Essential hypertension Hyperlipidemia Chief Complaint S/P CABG S/P CABG 3 M FU CLAUDICATION WEAKNESS ACUTE ON CHRONIC RENAL FAILURE WEAKNESS Reason for Visit Atherosclerotic hear t disease of hughes coronary artery without angina pectoris Diminished pulses in lower extremity History of coronary artery bypass graft x 3 Myalgia Postoperative atrial fibrillation Essential hypertension Hyperlipidemia Chief Complaint CLAUDICATION WEAKNESS ACUTE ON CHRONIC RENAL FAILURE WEAKNESS 3 M FU PER MMM BILAT LOWER WEAKNESS BILAT LOWER WEAKNESS Reason for Visit Atherosclerotic hear t disease of hughes coronary artery without angina pectoris History of coronary artery bypass graft x 3 Postoperative atrial fibrillation Essential hypertension Hyperlipidemia History of coronary artery bypass graft x 3 Postoperative atrial fibrillation Essential hypertension Hyperlipidemia Chief Complaint 3 M FU PER MMM BILAT LOWER WEAKNESS BILAT LOWER WEAKNESS L.E. EDEMA SWELLING OF LEGS Reason for Visit Atherosclerotic hear t disease of hughes coronary artery without angina pectoris History of coronary artery bypass graft x 3 Postoperative atrial fibrillation Essential hypertension Hyperlipidemia History of coronary artery bypass graft x 3 Postoperative atrial fibrillation Essential hypertension Hyperlipidemia Edema History of coronary artery bypass graft x 3 Postoperative atrial fibrillation Essential hypertension Hyperlipidemia Chief Complaint 3 M FU PER MMM BILAT LOWER WEAKNESS BILAT LOWER WEAKNESS L.E. EDEMA SWELLING OF LEGS E ORDER Reason for Visit Atherosclerotic hear t disease of hughes coronary artery without angina pectoris History of coronary artery bypass graft x 3 Postoperative atrial fibrillation Essential hypertension Hyperlipidemia History of coronary artery bypass graft x 3 Postoperative atrial fibrillation Essential hypertension Hyperlipidemia Edema History of coronary artery bypass graft x 3 Postoperative atrial fibrillation Essential hypertension Hyperlipidemia Chief Complaint L.E. EDEMA SWELLING OF LEGS E ORDER 3 M FU Reason for Visit Edema History of coronary artery bypass graft x 3 Postoperative atrial fibrillation Essential hypertension Hyperlipidemia History of coronary artery bypass graft x 3 Postoperative atrial fibrillation Essential hypertension Hyperlipidemia Chief Complaint E ORDER 3 M FU Reason for Visit History of coronary artery bypass graft x 3 Postoperative atrial fibrillation Essential hypertension Hyperlipidemia Chief Complaint E ORDER 3 M FU VIRAL SYMPTOMS Reason for Visit History of coronary artery bypass graft x 3 Postoperative atrial fibrillation Essential hypertension Hyperlipidemia Chief Complaint 3 M FU VIRAL SYMPTOMS Reason for Visit History of coronary artery bypass graft x 3 Postoperative atrial fibrillation Essential hypertension Hyperlipidemia Chief Complaint VIRAL SYMPTOMS LUMBAR DISC DISEASE RX HERE heart fluttering, SOB L.Lorson EORDERS former PFM pt, new onset CHF. L.Lorson Reason for Visit Dyspnea on exertion History of coronary artery bypass graft x 3 Chronic kidney disease Essential hypertension Hyperlipidemia Chief Complaint VIRAL SYMPTOMS LUMBAR DISC DISEASE RX HERE heart fluttering, SOB L.Lorson EORDERS former PFM pt, new onset CHF. L.Lorson INT LABS SOB Shortness of breath Reason for Visit Dyspnea on exertion History of coronary artery bypass graft x 3 Chronic kidney disease Essential hypertension Hyperlipidemia Chief Complaint LUMBAR DISC DISEASE RX HERE heart fluttering, SOB L.Lorson EORDERS former PFM pt, new onset CHF. L.Lorson INT LABS SOB Shortness of breath weakness 1 M FU Reason for Visit Chronic kidney disea se Dyspnea on exertion Essential hypertension History of coronary artery bypass graft x 3 Hyperlipidemia Chronic kidney disease Dyspnea on exertion Essential hypertension History of coronary artery bypass graft x 3 Hyperlipidemia Chief Complaint LUMBAR DISC DISEASE RX HERE heart fluttering, SOB L.Lorson EORDERS former PFM pt, new onset CHF. L.Lorson INT LABS SOB Shortness of breath weakness 1 M FU SOB WEAKESS CAD Reason for Visit Chronic kidney disea se Dyspnea on exertion Essential hypertension History of coronary artery bypass graft x 3 Hyperlipidemia Chronic kidney disease Dyspnea on exertion Essential hypertension History of coronary artery bypass graft x 3 Hyperlipidemia Chief Complaint LUMBAR DISC DISEASE RX HERE heart fluttering, SOB L.Lorson EORDERS former PFM pt, new onset CHF. [place]und[place].Lorson INT LABS SOB Shortness of breath weakness 1 M FU SOB WEAKESS CAD PCI w/coronary stenting S/P [facility] 01/01/23 PCI with coronary stent Reason for Visit Chronic kidney disea se Dyspnea on exertion Essential hypertension History of coronary artery bypass graft x 3 Hyperlipidemia Chronic kidney disease Dyspnea on exertion Essential hypertension History of coronary artery bypass graft x 3 Hyperlipidemia Essential hypertension History of coronary artery bypass graft x 3 Hyperlipidemia Chief Complaint LUMBAR DISC DISEASE RX HERE heart fluttering, SOB Dawna EORDERS former PFM pt, new onset CHF. LShaneLorson INT LABS SOB Shortness of breath weakness 1 M FU SOB WEAKESS CAD PCI w/coronary stenting S/P [facility] 01/01/23 PCI with coronary stent VIRAL SYMPTOMS PCI with coronary stent Reason for Visit Chronic kidney disea se Dyspnea on exertion Essential hypertension History of coronary artery bypass graft x 3 Hyperlipidemia Chronic kidney disease Dyspnea on exertion Essential hypertension History of coronary artery bypass graft x 3 Hyperlipidemia Essential hypertension History of coronary artery bypass graft x 3 Hyperlipidemia Chief Complaint LUMBAR DISC DISEASE RX HERE heart fluttering, SOB Dawna EORDERS former PFM pt, new onset CHF. PrabhjotLorson INT LABS SOB Shortness of breath weakness 1 M FU SOB WEAKESS CAD PCI w/coronary stenting S/P [facility] 01/01/23 PCI with coronary stent VIRAL SYMPTOMS Presence of coronary angioplasty implant and graft PCI with coronary stent Reason for Visit Chronic kidney disea se Dyspnea on exertion Essential hypertension History of coronary artery bypass graft x 3 Hyperlipidemia Chronic kidney disease Dyspnea on exertion Essential hypertension History of coronary artery bypass graft x 3 Hyperlipidemia Essential hypertension History of coronary artery bypass graft x 3 Hyperlipidemia Chief Complaint former PFM pt, new o nset CHF. L.Lorson INT LABS SOB Shortness of breath weakness 1 M FU SOB WEAKESS CAD PCI w/coronary stenting S/P [facility] 01/01/23 PCI with coronary stent VIRAL SYMPTOMS Presence of coronary angioplasty implant and graft PCI with coronary stent Reason for Visit Chronic kidney disea se Dyspnea on exertion Essential hypertension History of coronary artery bypass graft x 3 Hyperlipidemia Chronic kidney disease Dyspnea on exertion Essential hypertension History of coronary artery bypass graft x 3 Hyperlipidemia Essential hypertension History of coronary artery bypass graft x 3 Hyperlipidemia Chief Complaint SOB WEAKESS CAD PCI w/coronary stenting S/P [facility] 01/01/23 PCI with coronary stent VIRAL SYMPTOMS Presence of coronary angioplasty implant and graft PCI with coronary stent PCI with coronary stent E ORDERS PCI with coronary stent Reason for Visit Essential hypertensi on History of coronary artery bypass graft x 3 Hyperlipidemia Chief Complaint SOB WEAKESS CAD PCI w/coronary stenting S/P [facility] 01/01/23 PCI with coronary stent VIRAL SYMPTOMS Presence of coronary angioplasty implant and graft PCI with coronary stent PCI with coronary stent E ORDERS 3 M FU PCI with coronary stent Reason for Visit Essential hypertensi on History of coronary artery bypass graft x 3 Hyperlipidemia Essential hypertension History of coronary artery bypass graft x 3 Hyperlipidemia Chief Complaint PCI w/coronary stent ing S/P [facility] 01/01/23 PCI with coronary stent VIRAL SYMPTOMS Presence of coronary angioplasty implant and graft PCI with coronary stent PCI with coronary stent E ORDERS 3 M FU PCI with coronary stent SCREENING Reason for Visit Essential hypertensi on History of coronary artery bypass graft x 3 Hyperlipidemia Essential hypertension History of coronary artery bypass graft x 3 Hyperlipidemia Chief Complaint PCI with coronary st ent VIRAL SYMPTOMS Presence of coronary angioplasty implant and graft PCI with coronary stent PCI with coronary stent E ORDERS 3 M FU PCI with coronary stent SCREENING DYSARTHRIA WEAKNESS STROKE DYSARTHRIA WEAKNESS DYSARTHRIA WEAKNESS DYSARTHRIA WEAKNESS Reason for Visit Essential conchai on History of coronary artery bypass graft x 3 Hyperlipidemia Atherosclerotic heart disease of hughes coronary artery without angina pectoris Dysarthria Stroke Essential hypertension Hyperlipidemia Chief Complaint VIRAL SYMPTOMS Presence of coronary angioplasty implant and graft PCI with coronary stent PCI with coronary stent E ORDERS 3 M FU PCI with coronary stent SCREENING DYSARTHRIA WEAKNESS STROKE DYSARTHRIA WEAKNESS DYSARTHRIA WEAKNESS DYSARTHRIA WEAKNESS GI BLEED, ABLA Reason for Visit Essential conchai on History of coronary artery bypass graft x 3 Hyperlipidemia Atherosclerotic heart disease of [place] coronary artery without angina pectoris Dysarthria Stroke Essential hypertension Hyperlipidemia Chief Complaint VIRAL SYMPTOMS Presence of coronary angioplasty implant and graft PCI with coronary stent PCI with coronary stent E ORDERS 3 M FU PCI with coronary stent SCREENING DYSARTHRIA WEAKNESS STROKE DYSARTHRIA WEAKNESS DYSARTHRIA WEAKNESS DYSARTHRIA WEAKNESS GI BLEED, ABLA GI BLEED, ABLA GI BLEED, ABLA Reason for Visit Essential hyperti on History of coronary artery bypass graft x 3 Hyperlipidemia Atherosclerotic heart disease of [place] coronary artery without angina pectoris Dysarthria Stroke Essential hypertension Hyperlipidemia ABLA (acute blood loss anemia) Acute upper gastrointestinal bleeding Anticoagulated by anticoagulation treatment Bilateral pulmonary embolism GI bleed Chief Complaint PCI with coronary st ent E ORDERS 3 M FU PCI with coronary stent SCREENING DYSARTHRIA WEAKNESS STROKE DYSARTHRIA WEAKNESS DYSARTHRIA WEAKNESS DYSARTHRIA WEAKNESS GI BLEED, ABLA GI BLEED, ABLA GI BLEED, ABLA GI BLEED, ABLA Other pulmonary embolism without acute cor pulmona Other pulmonary embolism without acute cor pulmona 3-4 W MOBILE DISC JOCKEY F/U Reason for Visit History of coronary artery bypass graft x 3 Dysarthria ABLA (acute blood loss anemia) Acute upper gastrointestinal bleeding Anticoagulated by anticoagulation treatment Bilateral pulmonary embolism GI bleed Bilateral pulmonary embolism S/P insertion of IVC (inferior vena caval) filter Chief Complaint SCREENING DYSARTHRIA WEAKNESS STROKE DYSARTHRIA WEAKNESS DYSARTHRIA WEAKNESS DYSARTHRIA WEAKNESS GI BLEED, ABLA GI BLEED, ABLA GI BLEED, ABLA GI BLEED, ABLA Other pulmonary embolism without acute cor pulmona Other pulmonary embolism without acute cor pulmona 3-4 W MOBILE DISC JOCKEY F/U H FU PAIN BILAT LEGS US F/U Reason for Visit Dysarthria ABLA (acute blood loss anemia) Acute upper gastrointestinal bleeding Anticoagulated by anticoagulation treatment Bilateral pulmonary embolism GI bleed Bilateral pulmonary embolism S/P insertion of IVC (inferior vena caval) filter Barretts esophagus GI bleed S/P insertion of IVC (inferior vena caval) filter Chief Complaint DYSARTHRIA WEAKNESS STROKE DYSARTHRIA WEAKNESS DYSARTHRIA WEAKNESS DYSARTHRIA WEAKNESS GI BLEED, ABLA GI BLEED, ABLA GI BLEED, ABLA GI BLEED, ABLA Other pulmonary embolism without acute cor pulmona Other pulmonary embolism without acute cor pulmona 3-4 W MOBILE DISC JOCKEY F/U H FU PAIN BILAT LEGS US F/U Reason for Visit Dysarthria ABLA (acute blood loss anemia) Acute upper gastrointestinal bleeding Anticoagulated by anticoagulation treatment Bilateral pulmonary embolism GI bleed Bilateral pulmonary embolism S/P insertion of IVC (inferior vena caval) filter Barretts esophagus GI bleed S/P insertion of IVC (inferior vena caval) filter Chief Complaint Other pulmonary embo lism without acute cor pulmona Other pulmonary embolism without acute cor pulmona 3-4 W MOBILE DISC JOCKEY F/U H FU PAIN BILAT LEGS US F/U GROSS HEMATURIA WITH BLADDER MASS AND UTI Reason for Visit Bilateral pulmonary embolism S/P insertion of IVC (inferior vena caval) filter Barretts esophagus GI bleed S/P insertion of IVC (inferior vena caval) filter Hematuria Chief Complaint 3-4 W MOBILE DISC JOCKEY F/U H FU PAIN BILAT LEGS US F/U GROSS HEMATURIA WITH BLADDER MASS AND UTI GROSS HEMATURIA WITH BLADDER MASS AND UTI GROSS HEMATURIA WITH BLADDER MASS AND UTI Reason for Visit Bilateral pulmonary embolism S/P insertion of IVC (inferior vena caval) filter Barretts esophagus GI bleed S/P insertion of IVC (inferior vena caval) filter Acute cystitis with hematuria Adverse drug reaction Bladder mass Gross hematuria Hematuria UTI (urinary tract infection) BART (acute kidney injury) Sepsis Chief Complaint 3-4 W MOBILE DISC JOCKEY F/U H FU PAIN BILAT LEGS US F/U GROSS HEMATURIA WITH BLADDER MASS AND UTI GROSS HEMATURIA WITH BLADDER MASS AND UTI GROSS HEMATURIA WITH BLADDER MASS AND UTI GROSS HEMATURIA WITH BLADDER MASS AND UTI Reason for Visit Bilateral pulmonary embolism S/P insertion of IVC (inferior vena caval) filter Barretts esophagus GI bleed S/P insertion of IVC (inferior vena caval) filter Bladder mass UTI (urinary tract infection) Adverse drug reaction BART (acute kidney injury) Gross hematuria Sepsis Chief Complaint PCI with coronary st ent VIRAL SYMPTOMS Presence of coronary angioplasty implant and graft PCI with coronary stent PCI with coronary stent E ORDERS 3 M FU PCI with coronary stent SCREENING STROKE STROKE Reason for Visit Essential hypertensi on History of coronary artery bypass graft x 3 Hyperlipidemia Atherosclerotic heart disease of [place] coronary artery without angina pectoris Dysarthria Stroke Essential hypertension Hyperlipidemia Chief Complaint Admit Date GI BLEED April 25, 2024 11:34am GI BLEED April 25, 2024 6:42pm GI BLEED April 26, 2024 11:52am GI BLEED April 27, 2024 11:31am GI BLEED April 28, 2024 12:23pm Hospital FU May 18, 2024 9:43am INT LABS May 18, 2024 10:50am RIGHT KNEE PAIN June 03, 2024 4: 25pm Pain in right leg June 06, 2024 10 :07am EORDER June 13, 2024 2 :54pm general illness August 16, 2024 5:2 9pm Reason for Visit Admit Date Acute kidney injury April 25, 2024 11:34am GI bleed April 25, 2024 11:34am Fatigue May 18, 2024 9:43am SOB (shortness of breath) May 18, 2024 9:43am GI bleed May 18, 2024 9:43am Chief Complaint Admit Date Hospital FU May 18, 2024 9:43am INT LABS May 18, 2024 10:50am RIGHT KNEE PAIN June 03, 2024 4: 25pm Pain in right leg June 06, 2024 10 :07am EORDER June 13, 2024 2 :54pm general illness August 16, 2024 5:2 9pm [facility] LAB WORK August 17, 2024 5 :00am Reason for Visit Admit Date Fatigue May 18, 2024 9:43am SOB (shortness of breath) May 18, 2024 9:43am GI bleed May 18, 2024 9:43am Chief Complaint Admit Date RIGHT KNEE PAIN June 03, 2024 4: 25pm Pain in right leg June 06, 2024 10 :07am EORDER June 13, 2024 2 :54pm general illness August 16, 2024 5:2 9pm [facility] LAB WORK August 17, 2024 5 :00am [facility] WORK August 24, 2024 5 :00am Chief Complaint Admit Date EORDER June 13, 2024 2 :54pm general illness August 16, 2024 5:2 9pm [facility] LAB WORK August 17, 2024 5 :00am [facility] WORK August 24, 2024 5 :00am CKD September 30, 2024 3:38pm Chief Complaint Admit Date general illness August 16, 2024 5:2 9pm [facility] WORK August 17, 2024 5 :00am [facility] WORK August 24, 2024 5 :00am CKD September 30, 2024 3:38pm 6 M FU November 01, 2024 9:30a m KNEE November 14, 2024 2:19 pm Reason for Visit Admit Date Chronic kidney disease November 01, 2024 9: 30am Coronary artery disease November 01, 2024 9 :30am History of coronary artery bypass graft x 3 November 01, 2024 9:30am History of DVT (deep vein thrombosis) Ju 2024 9:30am Essential hypertension November 01, 2024 9: 30am Hyperlipidemia November 01, 2024 9:30a m Chief Complaint Admit Date general illness August 16, 2024 5:2 9pm [facility] WORK August 17, 2024 5 :00am [facility] WORK August 24, 2024 5 :00am CKD September 30, 2024 3:38pm 6 M FU November 01, 2024 9:30a m Additional Source Comments (unrecognized sect ion and content) No Status Records FoundNo Status Records FoundNo Status Records FoundNo Status Records FoundNo Status Records Found INFORMATION SOURCE (unrecogn ized section and content) DATE CREATED AUTHOR 01/05/2020 [facility] ([place]) DATE CREATED AUTHOR AUTHOR'S ORGANIZ ATION 04/06/2021 [facility] DATE CREATED AUTHOR AUTHOR'S ORGANIZ ATION 06/30/2021 [facility] DATE CREATED AUTHOR AUTHOR'S ORGANIZ ATION 11/05/2024 [facility] DATE CREATED AUTHOR AUTHOR'S ORGANIZ ATION 11/16/2024 [facility] Goals (unrecognized section and content) Goals may be documented in a n alternate sectionGoals may be documented in an alternate sectionGoals may be documented in an alternate sectionGoals may be documented in an alternate sectionGoals may be documented in an alternate sectionGoals may be documented in an alternate sectionGoals may be documented in an alternate sectionGoals may be documented in an alternate sectionGoals may be documented in an alternate sectionGoals may be documented in an alternate sectionGoals may be documented in an alternate sectionGoals may be documented in an alternate sectionGoals may be documented in an alternate sectionGoals may be documented in an alternate sectionGoals may be documented in an alternate sectionGoals may be documented in an alternate sectionGoals may be documented in an alternate sectionGoals may be documented in an alternate sectionGoals may be documented in an alternate sectionGoals may be documented in an alternate sectionGoals may be documented in an alternate sectionGoals may be documented in an alternate sectionGoals may be documented in an alternate sectionGoals may be documented in an alternate sectionGoals may be documented in an alternate sectionGoals may be documented in an alternate section No data available for this section No data available for this sectionGoals may be documented in an alternate sectionGoals may be documented in an alternate sectionGoals may be documented in an alternate sectionGoals may be documented in an alternate sectionGoals may be documented in an alternate section Care Teams (unrecognized sec tion and content) Team Status: Active Member Role Status Dates Dr. Corky Hernandez MD Family Provider Active Dr. Jose Hooks MD Primary Care Provider Active Team Status: Inactive Member Role Status Dates Dr. Jose Hooks MD Primary Care Provider, Referring Provider Active Rina Olivier PA, PA Attending Provider Active Team Status: Inactive Member Role Status Dates Dr. Jose Hooks MD Primary Care Provider, Referring Provider Active Myrna Bridges 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, 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-C Attending Provider Active Team Status: Active Member Role Status Dates Dr. Jose Hooks MD Primary Care Provider Active Dr. Winstno Mclaughlin MD Attending Provider Active Rina Olivier PA, PA Referring Provider Active Team Status: Inactive Member Role Status Dates Dr. Jose Hooks MD Primary Care Provider Active Rina Olivier PA, PA Attending Provider, Referr ing Provider Active Team Status: Inactive Member Role Status Dates Dr. Joes Hooks MD Primary Care Provider, Attending Provider Active Team Status: Active Member Role Status Dates Dr. Jose Hooks MD Primary Care Provider, Attending Provider Active Team Status: Inactive Member Role Status Dates Dr. Jose Hooks MD Primary Care Provider Active Jose Hooks MD Attending Provider Active Team Status: Inactive Member Role Status Dates Dr. Jose Hooks MD Primary Care Provider Active Jose RICE MD Attending Provider Active Team Status: Inactive Member Role Status Dates Dr. Jose Hooks MD Primary Care Provider, Referring Provider Active Zain Active Dr. Eliseo Pittman MD Attending Provider Active Team Status: Inactive Member Role Status Dates Dr. Jose Hooks MD Primary Care Provider, Referring Provider Active Dr. Melody Whitmore MD Attending Provider Active Team Status: Inactive Member Role Status Dates Dr. Jose Hooks MD Primary Care Provider Active Dr. Karis Ca DO Attending Provider, Referring P rovider Active Team Status: Active Member Role Status Dates Dr. Jose Hooks MD Primary Care Provi kathie, Attending Provider, Referring Provider Active Team Status: Inactive Member Role Status Dates Dr. Jose Hooks MD Primary Care Provider Active Myrna Bridges 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, 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-C Attending Provider, Referring P rovider Active Team Status: Active Member Role Status Dates Dr. oJse Hooks MD Primary Care Provider Active Myrna Bridges 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, 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-C Referring Provider, Other Provi kathie Active Dr. Eliseo Pittman MD Attending Provider Active Team Status: Inactive Member Role Status Dates Dr. Jose Hooks MD Primary Care Provider Active Myrna Bridges 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, 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-C Attending Provider, Referring P prem Active Dr. Melody Whitmore MD Other Provider Active Team Status: Active Member Role Status Dates Dr. Jose Hooks MD Primary Care Provider Active Dr. Melody Whitmore MD Attending Provider Active Team Status: Inactive Member Role Status Dates Dr. Jose Hooks MD Primary Care Provider Active Dr. Emre Hussein MD Attending Provider, Emergency Provider Active Team Status: Inactive Member Role Status Dates Dr. Jose Hooks MD Primary Care Provider Active Dr. Melody Whitmore MD Admit Provider, At tending Provider, Referring Provider Active Team Status: Inactive Member Role Status Dates Dr. Jose Hooks MD Primary Care Provider Active Dr. Melody Whitmore MD Attending Provider, Referring Pr ovider Active Team Status: Active Member Role Status Dates Dr. Jose Hooks MD Primary Care Provider Active Dr. Melody Whitmore MD Attending Provider, Referring Pr ovider Active Team Status: Inactive Member Role Status Dates Dr. Jose Hooks MD Primary Care Provi kathie, Attending Provider, Referring Provider Active Team Status: Active Member Role Status Dates Dr. Jose Hooks MD Primary Care Provider Active Dr. Rl Cdaena DO Emergency Provider Active Dr. Lm Delaney DO Admit Provider, At tending Provider, Other Provider Active Team Status: Active Member Role Status Dates Dr. Jose Hooks MD Primary Care Provider Active Dr. Rl Cadena DO Emergency Provider Active Dr. Lm Delaney DO Admit Provider, At tending Provider, Other Provider Active Dr. Yany Siu MD Other Provider Active Dr. Deborah Drake MD Other Provider Active Yesi Olson MD Other Provider Active Kole Morales MS Other Provider Active Joycelyn Rey MD Other Provider Active NATALIIA GARCIA MD Other Provider Active Mabel Stewart MD Other Provider Active Dr. Sofia Noriega MD Other Provider Active Jay Fatima MD Other Provider Active Ilene Parekh MD Other Provider Active Cong Salas MD Other Provider Active Carol Sneed MD Other Provider Active Dr. Emely Binh , DO Other Provider Active Dr. Jaxon Gupta MD Other Provider Active Dr. Nathalie Jeter MD Other Provider Active Dr. Ezequiel Portillo MD Other Provider Active Dr. Bindu Vazquez MD Other Provider Active Dr. Melvina Luis MD Other Provider Active Dr. Ralph Sánchez MD Other Provider Active Dr. Merari Alonso MD Other Provider Active Dr. Emre Mcintyre MD Other Provider Active Dr. Maximo Minor MD Other Provider Active Dr. Louis Carranza MD Other Provider Active Dr. Sheryl Ca MD Other Provider Active Raffaele Bustillos MD Other Provider Active Team Status: Active Member Role Status Dates Dr. Jose Hooks MD Primary Care Provider Active Dr. Stephanie Zapata MD Attending Provider Active Team Status: Inactive Member Role Status Dates Dr. Jose Hooks MD Primary Care Provider Active Dr. Rl Cadena , Emergency Provider Active Dr. Lm Delaney , Admit Provider, Attending Provid er Active Dr. Yany Siu MD Other Provider Active Dr. Deborah Drake MD Other Provider Active Yesi Olson MD Other Provider Active Kole Morales MS Other Provider Active Joycelyn Rye MD Other Provider Active NATALIIA GARCIA MD Other Provider Active Mabel Stewart MD Other Provider Active Dr. Sofia Noriega MD Other Provider Active Jay Fatima MD Other Provider Active Ilene Parekh MD Other Provider Active Cong Salas MD Other Provider Active Carol Sneed MD Other Provider Active Dr. Emely Purcell DO Other Provider Active Dr. Jaxon Gupta MD Other Provider Active Dr. Nathalie Jeter MD Other Provider Active Dr. Ezequiel Portillo MD Other Provider Active Dr. Bindu Vazquez MD Other Provider Active Dr. Melvina Luis MD Other Provider Active Dr. Ralph Sánchez MD Other Provider Active Dr. Merari Alonso MD Other Provider Active Dr. Emre Mcintyre MD Other Provider Active Dr. Maximo Minor MD Other Provider Active Dr. Louis Carranza MD Other Provider Active Dr. Sheryl Ca MD Other Provider Active Raffaele Bustillos MD Other Provider Active Team Status: Active Member Role Status Dates Dr. Jose Hooks MD Primary Care Provider Active Dr. Fred Tam MD Referring Provider, Emergency Provider Active Dr. Kusum Bishop MD Admit Provider, Attending Prov ider Active Team Status: Active Member Role Status Dates Dr. Jose Hooks MD Primary Care Provider Active Dr. Fred Tam MD Referring Provider, Emergency Provider Active Dr. Kusum Bishop MD Admit Provider, Other Provider Active Dr. Jaya Almanza MD Other Provider Active Dr. Taco Rose DO Attending Provider Active Team Status: Active Member Role Status Dates Dr. Jose Hooks MD Primary Care Provider Active Dr. Fred Tam MD Referring Provider, Emergency Provider Active Dr. Kusum Bishop MD Admit Provider, Other Provider Active Dr. Jaya Almanza MD Attending Provider, Other Provi kathie Active Dr. Lm Maxwell MD Other Provider Active Team Status: Inactive Member Role Status Dates Dr. Jose Hooks MD Primary Care Provider Active Dr. Fred Tam MD Referring Provider, Emergency Provider Active Dr. Kusum Bishop MD Admit Provider, Other Provider Active Dr. Jaya Almanza MD Attending Provider Active Dr. Lm Maxwell MD Other Provider Active Team Status: Active Member Role Status Dates Dr. Jose Hooks MD Primary Care Provider Active Dr. Fred Tam MD Emergency Provider Active Dr. Kusum Bishop MD Admit Provider, Other Provider Active Dr. Jaya Almanza MD Attending Provider, Other Provi kathie Active Dr. Lm Maxwell MD Other Provider Active Team Status: Active Member Role Status Dates Dr. Jose Hooks MD Primary Care Provider Active Dr. Fred Tam MD Referring Provider, Emergency Provider Active Dr. Kusum Bishop MD Admit Provider, Other Provider Active Dr. Jaya Almanza MD Other Provider Active Dr. Lm Maxwell MD Attending Provider, Other Provide r Active Team Status: Inactive Member Role Status Dates Dr. Jose Hooks MD Primary Care Provider, Referring Provider Active FAHEEM Power Attending Provider Active Team Status: Active Member Role Status Dates Dr. Jose Hooks MD Primary Care Provider Active Dr. Lm Maxwell MD Attending Provider, Referring Provider, Other Provider Active Team Status: Inactive Member Role Status Dates Dr. Jose Hooks MD Primary Care Provider Active Dr. Lm Maxwell MD Attending Provider, Referring Pro vider Active Team Status: Inactive Member Role Status Dates Dr. Jose Hooks MD Primary Care Provider Active Dr. Fred Tam MD Referring Provider, Emergency Provider Active Dr. Kusum Bishop MD Admit Provider, Other Provider Active Dr. Lm Maxwell MD Other Provider Active Dr. Jaya Almanza MD Attending Provider Active Team Status: Inactive Member Role Status Dates Dr. Jose Hooks MD Primary Care Provider, Referring Provider Active Dr. Taco Rose DO Attending Provider Active Team Status: Active Member Role Status Dates Dr. Jose Hooks MD Primary Care Provider Active Dr. Lm Maxwell MD Attending Provider Active Team Status: Active Member Role Status Dates Dr. Jose Hooks MD Primary Care Provider Active Dr. Lm Maxwell MD Attending Provider, Referring Pro vider Active Team Status: Active Member Role Status Dates Dr. Jose Hooks MD Primary Care Provider Active Dr. Barbara Mathew MD Emergency Provider Active Dr. Galilea Lopez DO Admit Provider, Attending Pr ovider Active Team Status: Active Member Role Status Dates Dr. Jose Hooks MD Primary Care Provider Active Dr. Barbara Mathew MD Emergency Provider Active Dr. Galilea Lopez DO Admit Provider, Other Provid er Active Dr. Jay Wright DO Attending Provider, Other Provider Active Team Status: Inactive Member Role Status Dates Dr. Jose Hooks MD Primary Care Provider Active Dr. Brabara Mathew MD Emergency Provider Active Dr. Galilea Lopez DO Admit Provider, Other Provid er Active Dr. Jay Wright DO Attending Provider Active Team Status: Active Member Role Status Dates Dr. Jose Hooks MD Primary Care Provider Active Dr. Rl Cadena DO Emergency Provider Active Dr. Lm Delaney DO Admit Provider, Attending Provid er Active Dr. Yany Siu MD Other Provider Active Dr. Deborah Drake MD Other Provider Active Yesi Olson MD Other Provider Active Kole Morales MS Other Provider Active Joycelyn Rey MD Other Provider Active NATALIIA GARCIA MD Other Provider Active Mabel Stewart MD Other Provider Active Dr. Sofia Noriega MD Other Provider Active Jay Fatima MD Other Provider Active Ilene Parekh MD Other Provider Active Team Status: Active Member Role Status Dates Juan Rodriguez 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-C Primary Care Provider Active Team Status: Inactive Member Role Status Dates Dr. Butch Barcenas DO Emergency Provider Active Start: April 25, 2024 End: April 28, 2024 Juan Rodriguez 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-C Primary Care Provider Active Start: April 25, 2024 End: April 28, 2024 Dr. Joanna Sol MD Admit Provider Active St art: April 25, 2024 End: April 28, 2024 Dr. Joanna Sol MD Attending Provider Active Start: April 25, 2024 End: April 28, 2024 Dr. Joanna Sol MD Other Provider Active St art: April 25, 2024 Team Status: Active Member Role Status Dates Dr. Butch Barcenas DO Emergency Provider Active Start: April 25, 2024 Juan Rodriguez 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-C Primary Care Provider Active Start: April 25, 2024 Dr. Joanna Sol MD Admit Provider Active St art: April 25, 2024 Dr. Joanna Sol MD Referring Provider Active Start: April 25, 2024 Dr. Joanna Sol MD Other Provider Active St art: April 25, 2024 Dr. Taco Rose DO Attending Provider Active Start: April 25, 2024 Team Status: Active Member Role Status Dates Dr. Butch Barcenas DO Emergency Provider Active Start: April 26, 2024 Juan Rodriguez NP-C Primary Care Provider Active Start: April 26, 2024 Dr. Joanna Sol MD Admit Provider Active St art: April 26, 2024 Dr. Joanna Sol MD Attending Provider Active Start: April 26, 2024 Dr. Joanna Slo MD Other Provider Active St art: April 26, 2024 Team Status: Active Member Role Status Dates Juan Rodriguez NP-C Primary Care Provider Active Start: April 26, 2024 Dr. Taco Rose DO Attending Provider Active Start: April 26, 2024 Dr. Joanna Sol MD Referring Provider Active Start: April 26, 2024 Team Status: Active Member Role Status Dates Dr. Butch Barcenas DO Emergency Provider Active Start: April 27, 2024 Juan Negro , 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-C Primary Care Provider Active Start: April 27, 2024 Dr. Joanna Sol MD Admit Provider Active St art: April 27, 2024 Dr. Joanna Sol MD Attending Provider Active Start: April 27, 2024 Dr. Joanna Sol MD Other Provider Active St art: April 27, 2024 Team Status: Active Member Role Status Dates Juan Rodriguez 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-C Primary Care Provider Active Start: April 27, 2024 Dr. Taco Rose DO Attending Provider Active Start: April 27, 2024 Dr. Joanna Sol MD Referring Provider Active Start: April 27, 2024 Team Status: Active Member Role Status Dates Dr. Butch Barcenas DO Emergency Provider Active Start: April 28, 2024 Juan Rodriguez 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-C Primary Care Provider Active Start: April 28, 2024 Dr. Joanna Sol MD Admit Provider Active St art: April 28, 2024 Dr. Joanna Sol MD Attending Provider Active Start: April 28, 2024 Dr. Joanna Sol MD Other Provider Active St art: April 28, 2024 Team Status: Inactive Member Role Status Dates Juan Rodriguez , 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-C Primary Care Provider Active Start: May 10, 2024 End: May 10, 2024 Juan Rodriguez 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-C Attending Provider Active St art: May 10, 2024 End: May 10, 2024 Juan Rodriguez 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-C Referring Provider Active St art: May 10, 2024 End: May 10, 2024 Team Status: Inactive Member Role Status Dates Juan Rodriguez 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-C Primary Care Provider Active Start: May 18, 2024 End: May 18, 2024 Juan Rodriguez 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-C Referring Provider Active St art: May 18, 2024 End: May 18, 2024 RANI Lorenz Attending Provider Active Start: May 18, 2024 End: May 18, 2024 Team Status: Inactive Member Role Status Dates Juan Rodriguez 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-C Primary Care Provider Active Start: May 18, 2024 End: May 18, 2024 Jackie Ballard NP-C Attending Provider Active Start: May 18, 2024 End: May 18, 2024 Jackie Ballard 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-C Referring Provider Active Start: May 18, 2024 End: May 18, 2024 Team Status: Inactive Member Role Status Dates Juan Rodriguez , 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-C Primary Care Provider Active Start: June 03, 2024 End: June 03, 2024 Juan Rodriguez , 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-C Attending Provider Active St art: June 03, 2024 End: June 03, 2024 Juan Rodriguez , 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-C Referring Provider Active St art: June 03, 2024 End: June 03, 2024 Team Status: Inactive Member Role Status Dates Juansammy Rodriguez , 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-C Primary Care Provider Active Start: June 06, 2024 End: June 06, 2024 Juan Rodriguez , 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-C Attending Provider Active St art: June 06, 2024 End: June 06, 2024 Juan Rodriguez , 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-C Referring Provider Active St art: June 06, 2024 End: June 06, 2024 Team Status: Active Member Role Status Dates Juan Rodriguez , 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-C Primary Care Provider Active Start: June 06, 2024 Juan Rodriguez , 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-C Referring Provider Active St art: June 06, 2024 Dr. Lm Maxwell MD Attending Provider Active S tart: June 06, 2024 Team Status: Inactive Member Role Status Dates Juan Rodriguez , 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-C Primary Care Provider Active Start: June 13, 2024 End: June 13, 2024 Jackie Ballard , 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-C Attending Provider Active Start: June 13, 2024 End: June 13, 2024 Jackie Ballard , 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-C Referring Provider Active Start: June 13, 2024 End: June 13, 2024 Team Status: Inactive Member Role Status Dates Juan Rodriguez , 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-C Primary Care Provider Active Start: July 15, 2024 End: July 15, 2024 Juan Rodriguez , 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-C Attending Provider Active St art: July 15, 2024 End: July 15, 2024 Juan Rodriguez , 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-C Referring Provider Active St art: July 15, 2024 End: July 15, 2024 Team Status: Inactive Member Role Status Dates Juansammy Rodriguez , 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-C Primary Care Provider Active Start: July 21, 2024 End: July 21, 2024 Dr. Day Newberry MD Attending Provider Active Start: July 21, 2024 End: July 21, 2024 Dr. Day Newberry MD Referring Provider Active Start: July 21, 2024 End: July 21, 2024 Team Status: Inactive Member Role Status Dates Juan Negro , 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-C Primary Care Provider Active Start: August 16, 2024 End: August 16, 2024 Dr. Rl Cadena DO Emergency Provider Active Start: August 16, 2024 End: August 16, 2024 Team Status: Inactive Member Role Status Dates Juan Negro , 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-C Primary Care Provider Active Start: August 16, 2024 End: August 16, 2024 Dr. Rl Cadena DO Attending Provider Active Start: August 16, 2024 End: August 16, 2024 Dr. Rl Cadena DO Emergency Provider Active Start: August 16, 2024 End: August 16, 2024 Team Status: Inactive Member Role Status Dates Juan Negro , 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-C Primary Care Provider Active Start: August 17, 2024 End: August 17, 2024 Dr. Yahaira RICE MD Attending Provider Active Start: August 17, 2024 End: August 17, 2024 Team Status: Active Member Role Status Dates Juansammy Rodriguez , 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-C Primary Care Provider Active Start: August 22, 2024 Dr. Yahaira RICE MD Attending Provider Active Start: August 22, 2024 Team Status: Active Member Role Status Dates Juan Negro , 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-C Primary Care Provider Active Start: August 24, 2024 Dr. Yahaira RICE MD Attending Provider Active Start: August 24, 2024 Team Status: Inactive Member Role Status Dates Juan Negro , 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-C Primary Care Provider Active Start: August 24, 2024 End: August 24, 2024 Dr. Yahaira RICE MD Attending Provider Active Start: August 24, 2024 End: August 24, 2024 Team Status: Inactive Member Role Status Dates Juan Negro , 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-C Primary Care Provider Active Start: September 30, 2024 End: September 30, 2024 Dr. Karis Ca DO Attending Provider Active Start: September 30, 2024 End: September 30, 2024 Dr. Karis Ca DO Referring Provider Active Start: September 30, 2024 End: September 30, 2024 Team Status: Inactive Member Role Status Dates RANI Hdz Primary Care Provider Active Start: November 01, 2024 End: November 01, 2024 RANI Hdz Referring Provider Active St art: November 01, 2024 End: November 01, 2024 Dr. Melody Whitmore MD Attending Provider Active Start: November 01, 2024 End: November 01, 2024 Team Status: Inactive Member Role Status Dates RANI Hdz Primary Care Provider Active Start: November 14, 2024 End: November 14, 2024 Dr. Franck Good , Emergency Provider Active S tart: November 14, 2024 End: November 14, 2024 FOR RECORDS PERTAINING TO PATIENTS WHO ARE OR HAVE BEEN ENROLLED IN A CHEMICAL DEPENDENCY/SUBSTANCEABUSE PROGRAM, SOME INFORMATION MAY BE OMITTED. This clinical summary was aggregated from multiple sources. Caution should be exercised in using it in the provision of clinical care. This summary normalizes information from multiple sources, and as a consequence, information in this document may materially change the coding, format and clinical context of patient data. In addition, data may be omitted in some cases. CLINICAL DECISIONS SHOULD BE BASED ON THE PRIMARY CLINICAL RECORDS. [facility]. provides no warranty or guarantee of the accuracy or completeness of information in this document.
--- OUTSIDE RECORDS SUMMARY | 2025-01-03 18:53 | XMS RPT_ITS | CCD ---
Author Organization [facility] Care Team Providers Care Labor Mediator Name Role Phone Cordelia Rivera Unavailable Unavailable Cordelia Rivera Unavailable Unavailable Fast DO, Sherron A Unavailable Jovanni Claudia FONTAINE Unavailable Myrna Rivas RN Unavailable Unavailable Unavailable Unavailable Dr. Javi Bates Referring Provider Dr. Geovanny Michelle Attending Provider [phone] [place], Dr. Jose Sewell Primary Care Provider [...] Attending Provider Dr. Winston Mclaughlin Attending Provider [phone] FAHEEM Bob Referring Provider Jes[place], Dr. Jose Sewell Primary Care Provider Jessee, Dr. Jose Sewell Referring Provider FAHEEM Bob Attending Provider Cyrus PIPELINE CONSTRUCTION INSPECTOR, PIPELINE CONSTRUCTION INSPECTOR-C Myrna Attending Provider Jes[place], Dr. Jose Sewell Primary Care Provider Jessee, Dr. Jose Sewell Referring Provider [phone] [place], Dr. Jose Sewell Primary Care Provider [phone] Jes[place], Dr. Jose Sewell Referring Provider Cyrus PIPELINE CONSTRUCTION INSPECTOR, PIPELINE CONSTRUCTION INSPECTOR-C Myrna Attending Provider Jes[place], Dr. Jose Sewell Primary Care Provider [phone] Jes[place], Dr. Jose Sewell Referring Provider Dr. Eliseo Pittman Attending Provider [phone] Melody Whitmore Attending Provider [phone] Cyrus BERRY, PIPELINE CONSTRUCTION INSPECTOR-C Myrna Referring Provider Cyrus PIPELINE CONSTRUCTION INSPECTOR, PIPELINE CONSTRUCTION INSPECTOR-C Myrna Other Provider [phone] Cyrus PIPELINE CONSTRUCTION INSPECTOR, PIPELINE CONSTRUCTION INSPECTOR-C Myrna Attending Provider [place], Dr. Jose Sewell Primary Care Provider Jessee, Dr. Jose Sewell Referring Provider Dr. Eliseo Pittman Attending Provider Jes[place], Dr. Jose Sewell Primary Care Provider Dr. Melody Whitmore Attending Provider Jes[place], Dr. Jose Sewell Referring Provider Cyrus PIPELINE CONSTRUCTION INSPECTOR, PIPELINE CONSTRUCTION INSPECTOR-C Myrna Attending Provider Dr. Jose Hooks Chi Primary Care Provider Dr. Jose Hooks Chi Primary Care Provider Jes[place], Dr. Jose Sewell Referring Provider Cyrus PIPELINE CONSTRUCTION INSPECTOR, PIPELINE CONSTRUCTION INSPECTOR-C Myrna Attending Provider Dr. Rl Cadena Emergency Provider [phone] Lm Delaney Admit Provider Dr. Lm Delaney Attending Provider Dr. Lm Delaney Other Provider Dr. Yany Siu Other Provider Dr. Deborah Drake Other Provider MD Yesi Olson Other Provider [phone] MS Kole Morales Other Provider MD Joycelyn Rey Other Provider [phone] MD NATALIIA GARCIA Other Provider MD Mabel Stewart Other Provider Dr. Sofia Noriega Other Provider MD Jay Fatima Other Provider [phone] MD Ilene Parekh Other Provider MD Cong Salas Other Provider Unavailable MD Carol Sneed Other Provider Unavailable Dr. Emely Purcell Other Provider Dr. Jaxon Gupta Other Provider [phone] Dr. Nathalie Jeter Other Provider Dr. Ezequiel Portillo Other Provider Dr. Bindu Vazquez Other Provider Dr. eMlvina Luis Other Provider Dr. Ralph Sánchez Other Provider [phone] Dr. Merari Alonso Other Provider Dr. [...] Provider [place], Dr. España Attending Provider [phone] Jaya Almanza Attending Provider Dr. Lm Maxwell Other Provider Dr. Lm Maxwell Attending Provider [phone] Lm Maxwell Referring Provider [phone] FAHEEM Abad Attending Provider Dr. Jose Hooks Chi Primary Care Provider Dr. Rl Cadena Emergency Provider [phone] Lm Delaney Admit Provider Dr. Lm [...] Provider Dr. Taco Rose Attending Provider [phone] Dr. Jose Hooks Chi Primary Care Provider Dr. Lm Maxwell Attending Provider [phone] Lm Maxwell Referring Provider [phone] Barbara Mathew Emergency Provider Lopez, Dr. Cheek Admit Provider Unavailabl e Dr. Galilea Lopez Other Provider Unavailabl e Dr. Jay Wright Attending Provider Dr. Jay Wright Other Provider DES BHATT, CORKY Primary Care Physician Dr. Butch Barcenas DO Emergency Provider Negro PIPELINE CONSTRUCTION INSPECTOR-C, Juan Primary Care Provider [phone] Sweta BHATT, Dr. Joanna Malone Admit Provider Sweta BHATT, Dr. Joanna Malone Attending Provider Sweta BHATT, Dr. Joanna Malone Referring Provider Sweta BHATT, Dr. Joanna Malone Other Provider Dr. Taco Rose DO Attending Provider Negro PIPELINE CONSTRUCTION INSPECTOR-C, Juan Attending Provider Negro PIPELINE CONSTRUCTION INSPECTOR-C, Juan Referring Provider [phone] Elio PIPELINE CONSTRUCTION INSPECTOR-C, Jackie Attending Provider Elio PIPELINE CONSTRUCTION INSPECTOR-C, Jackie Referring Provider Dr. Lm Maxwell MD Attending Provider Jennie BHATT, Dr. Finch Attending Provider [phone] Jennie BHATT, Dr. Finch Referring Provider [phone] Dr. Rl Cadena DO Emergency Provider [phone] Negro PIPELINE CONSTRUCTION INSPECTOR-C, [place] Primary Care Provider [phone] Negro PIPELINE CONSTRUCTION INSPECTOR-C, Juan Referring Provider [phone] Negro PIPELINE CONSTRUCTION INSPECTOR-C, Juan Attending Provider [phone] Rl Cadena DO Attending Provider [phone] Claire BHATT, Dr. Syed Attending Provider Unavaila ble Negro PIPELINE CONSTRUCTION INSPECTOR-C, [place] Primary Care Provider [phone] Negro PIPELINE CONSTRUCTION INSPECTOR-C, [place] Referring Provider [phone] Elio PIPELINE CONSTRUCTION INSPECTOR-C, Jackie Attending Provider Elio PIPELINE CONSTRUCTION INSPECTOR-C, Jackie Referring Provider Negro PIPELINE CONSTRUCTION INSPECTOR-C, [place] Primary Care Provider [phone] Negro PIPELINE CONSTRUCTION INSPECTOR-C, Juan Attending Provider [phone] Negro PIPELINE CONSTRUCTION INSPECTOR-C, Juan Referring Provider [phone] Karis Ca DO Attending Provider Dr. Karis Ca DO Referring Provider OSCAR TURCIOS DO Attending Unavailable NEGRO BOTTLE GAUGER, HOWELL Primary Care Unavailable KENNEN SAND HAULER-RUBBER CHEMIST, JUAN L Admitting Cristino HERNANDEZ MD, CORKY Primary Care Unavailable JENNIE BHATT, DR DAY Jules Attending Lasha Zabala MD, DR DAY Jules Attending Unavailab le NEGRO BOTTLE GAUGER, HOWELL Primary Care Unavailable KENNEN SAND HAULER-RUBBER CHEMIST, JUAN L Consulting Cristino NEWBERRY MD, DR DAY Jules Admitting Lasha Corcoran MD, [facility] Care Unavailable JENNIE BHATT, DR DAY Jules Attending Unavailab le Negro PIPELINE CONSTRUCTION INSPECTOR-C, [place] Primary Care Provider Negro PIPELINE CONSTRUCTION INSPECTOR-C, [place] Referring Provider [phone] Haim BHATT, Dr. Oliver Attending Provider Dr. Franck Good DO Emergency Provider Negro PIPELINE CONSTRUCTION INSPECTOR-C, Juan Primary Care Provider Koram, Joanna Kira Admitting Unavailable Negro, Juan Primary Care Unavailable Koram, Joanna Kira Attending Unavailable Jessee, Jose Chi Primary Care Unavailable Archie, Jaya Attending Unavailable Archie, Jaya Admitting Unavailable Roby, Karis Consulting Unavailable Henning, Lm Consulting Unavailable Yahaira Shipman Attending Unavailable Negro, Juan Primary Care Unavailable Jessee, Jose Chi Primary Care Unavailable Jessee, Jose Chi Attending Unavailable Jessee, Jose Chi Referring Unavailable Abad, Emely Attending Unavailable Abad, Emely Referring Unavailable Jessee, Jose Chi Primary Care Unavailable Bridges PIPELINE CONSTRUCTION INSPECTOR, Myrna Consulting Unavailable ElioJackie arango Referring Unavailable [...] Jessee, Jose Chi Primary Care Unavailable Cyrus PIPELINE CONSTRUCTION INSPECTOR, Myrna Attending Unavailable Cyrus PIPELINE CONSTRUCTION INSPECTOR, Myrna Referring Unavailable Negro, Juan Primary Care [...] Care Unavailable Jessee, Jose Chi Referring Unavailable Archie, Jaya Referring Unavailable [...] Jessee, Jose Chi Primary Care Unavailable Eliseo Pittman Attending Unavailable Jessee, Jose Chi Primary Care [...] / clavulanate Drug Allergy 08-29-19 11 itching [facility] Work Phone: (2 sources) atorvastatin Drug Allergy 08-29-19 11 muscle aches [facility] Work Phone: (4 sources) erythromycin; 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: [Erythromycin] Drug Allergy 08-29-19 11 Hives [facility] Work Phone: (2 sources) fenofibrate; 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: [TRICOR] Drug Allergy 08-29-19 11 myalgia [facility] Work Phone: (2 sources) levoFLOXacin Drug Allergy 08-29-19 11 [facility] Work Phone: (1 source) amLODIPine; [...] sources) Amoxicillin Drug Allergy 05-16-20 21 Itching [facility] (20 sources) atorvastatin Drug Allergy 05-16-20 21 myalgias [facility] (20 sources) Clavulanate Drug Allergy 05-16-20 21 Itching [facility] (20 sources) Erythromycin Drug Allergy 05-16-20 21 Hives [facility] (20 sources) levoFLOXacin Drug Allergy 05-16-20 21 Unknown [facility] (1 source) Amoxicillin Drug Allergy 11-15-19 25 [facility] (1 source) atorvastatin Drug Allergy 11-15-19 25 [facility] (1 source) Clavulanate Drug Allergy 11-15-19 25 [facility] (1 source) Fenofibrate Drug Allergy 11-15-19 25 [facility] (1 source) levoFLOXacin Drug Allergy 11-15-19 25 [facility] (1 source) erythromycin base Drug allergy (disorder) 11-15-19 25 [facility] Medications Current Medications Medication Drug [...] TABS One tablet by mouth daily ASPIRIN [id number] Cindy Keyes BOTTLE GAUGER-C Start: 10-03-2015 End: 10-03-2015 Start: 10-03-2015 Start: [...] TABS One tablet by mouth daily CHOLECALCIFEROL [id number] Geovanny Michelle MD Start: 01-16-2012 End: 03-20-2015 take 2 tablets by mouth once daily VITAMIN D 2000 UNIT TABS Two tablets by mouth daily CHOLECALCIFEROL [id number] Rina Olivier PA-C Start: 01-15-2011 colesevelam hydrochloride [...] Six tablets by mouth daily COLESEVELAM HCL [id number] Geovanny Michelle MD doxycycline hyclate 100 mg [...] once daily METOPROLOL SUCCINATE ER 25 MG [id number] One tablet by mouth daily METOPROLOL SUCCINATE [id number] Geovanny Michelle MD Start: 11-05-2015 take 1 tablet by zohaib th once daily METOPROLOL SUCCINATE ER 50 MG [id number] One tablet by mouth daily METOPROLOL SUCCINATE [id number] Cindy Keyes BOTTLE GAUGER-C naproxen 500 mg oral tablet (2 sources) [...] One tablet by mouth daily LEVOTHYROXINE SODIUM [id number] Cindy Keyes BOTTLE GAUGER-C Start: 01-16-2012 take 1 tablet by zohaib th once daily LEVOTHROID 75 MCG TABS One tablet by mouth daily LEVOTHYROXINE SODIUM [id number] Geovanny Michelle MD traMADol hydrochloride 50 mg oral [...] One tablet by mouth daily AMLODIPINE BESYLATE [id number] Rina Olivier PA-C amoxicillin 500 mg oral [...] 07-19-2007 docusate sodium 50 mg / sennosides, skilled nursing 8.6 mg oral tablet (6 sources) Start: [...] Two tablets by mouth daily DULOXETINE HCL [id number] Rina Olivier PA-C Start: 08-28-2010 End: 08-08-2016 [...] TABS One tablet by mouth daily HYDROCHLOROTHIAZIDE [id number] Cindy Keyes BOTTLE GAUGER-C levoFLOXacin 500 mg oral tablet (1 source) [...] TABS 1/2 tablet by mouth daily LISINOPRIL [id number] Geovanny Michelle MD Start: 08-28-2010 take 1 tablet by zohaib th once daily LISINOPRIL 40 MG TABS One tablet by mouth daily LISINOPRIL [id number] PHIL HolcombC loratadine 10 mg oral capsule (1 source) Start: 10-31-2014 End: 01-24-2015 lovastatin 10 mg oral tablet (5 sources) HMG-CoA Reductase Inhibitor Start: 10-03-2015 End: 05-05-2016 take 1 tablet by mouth at bedtime LOVASTATIN 10 MG TABS One tablet by mouth at bedtime. LOVASTATIN [id number] Cindy Keyes BOTTLE GAUGER-C magnesium chloride 535 mg delayed release oral [...] 29, 2023 1:00am June 25, 2023 12:10pm [facility] [employer] (4 sources) Start: 11-05-2015 End: 05-05-2016 take 1 tablet by mouth once daily TART XIONG ADVANCED CAPS One tablet by mouth daily [facility] [employer] [id number] iCndy Keyes BOTTLE GAUGER-C Start: 11-05-2015 take 1 tablet by zohaib th once daily TART XIONG ADVANCED CAPS One tablet by mouth daily [facility] Posto7 [id number] Geovanny Michelle MD mometasone furoate 0.05 mg/actuat metered dose nasal spray (1 source) Corticosteroid Start: 10-05-2014 End: 01-24-2015 24 hr NIFEdipine 90 mg extended release oral tablet (7 sources) Dihydropyridine Calcium Channel Yadira Start: 10-24-2015 End: 10-24-2015 Start: 01-16-2012 End: 11-05-2015 take 1 tablet by mouth once daily NIFEDIPINE ER 90 MG [id number] One tablet by mouth daily NIFEDIPINE [id number] Geovanny Michelle MD Start: 08-28-2010 take 1 tablet by zohaib th once daily NIFEDIPINE ER 60 MG [id number] One tablet by mouth daily NIFEDIPINE [id number] Rosetta Brothers RN nystatin [id number] unt/ml oral suspension (1 source) Polyene Antifungal [...] tablet by mouth every other day OMEPRAZOLE [id number] Geovanny Michelle MD Start: 01-16-2012 take 1 tablet by zohaib th once daily OMEPRAZOLE 20 MG CPDR One tablet by mouth daily OMEPRAZOLE [id number] Rina Berrios RN End: 06-27-2014 pitavastatin calcium 2 mg oral tablet (1 source) HMG-CoA Reductase Inhibitor Start: 01-15-2011 End: 01-15-2011 potassium chloride 10 meq extended release oral tablet (20 sources) Start: 05-05-2016 End: 11-10-2016 take 2 tablets by mouth once daily POTASSIUM CHLORIDE ER 10 MEQ CR-TABS Two tablets by mouth daily (STOP) POTASSIUM CHLORIDE [id number] Janet Schumacher RN Start: 02-22-2013 End: 06-30-2013 Start: 01-25-2013 End: 05-03-2014 take 1 tablet by mouth once daily KLOR-CON 10 CR-TABS One tablet by mouth daily POTASSIUM CHLORIDE CR-TABS [id number] Rina Olivier PA-C Start: 01-25-2013 take 1 tablet by zohaib th once daily KLOR-CON 10 CR-TABS One tablet by mouth daily POTASSIUM CHLORIDE CR-TABS [id number] Rina Olivier PA-C Start: 01-16-2012 End: 07-26-2012 take 3 tablets by mouth once daily POTASSIUM CHLORIDE ER 10 MEQ CR-TABS Three tablets by mouth daily POTASSIUM CHLORIDE [id number] Geovanny Michelle MD Start: 08-28-2010 take 1 tablet by zohaib th once daily POTASSIUM CHLORIDE ER 10 MEQ CR-TABS One tablet by mouth daily POTASSIUM CHLORIDE [id number] Cindy Keyes BOTTLE GAUGER-C Start: 02-15-2010 End: 05-06-2010 Start: 01-25-2008 End: [...] One tablet by mouth twice daily SPIRONOLACTONE [id number] Geovanny Michelle MD Start: 10-08-2015 End: 10-08-2015 sucralfate 1000 mg oral tablet (4 sources) Aluminum Complex Start: 06-13-2016 End: 11-03-2016 SUCRALFATE 1 GM TABS One tablet 4 times daily before meals and at bedtime SUCRALFATE [id number] Geovanny Michelle MD sulfamethoxazole 400 mg / [...] Coronary atherosclerosis; 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: [Atherosclerotic heart disease of [place] coronary artery without angina pectoris] Chronic Deficiency [...] aftercare (14 sources) Drug therapy finding; 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: [oysterman (current) use of anticoagulants] 05-29-2023 Episodic Other aftercare (5 sources) intermediate (current) use of anticoagulants; 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: [Long-term (current) [...] Auto (Unsp spec) [#/Vol] 1.22 10*3/uL 0.83-4.51 [facility] Absolute neutrophil countOrd ered By: Franck Good on 11-14-2024 Neutrophils (Bld) [#/Vol] 3.6 10*3/uL 2.0-7.7 [facility] Automated lymphocyte count a s percentage of total leukocytesOrdered By: Franck Good on 11-14-2024 Lymphocytes/100 WBC Auto (Unsp spec) 21.8 % 19-41 [facility] Basophil percentageOrdered B y: Franck Good on 11-14-2024 Basophils/100 WBC (Bld) 0.7 % 0-1 [facility] CBC W/Diff, Automatedon -06 06-2024 Absolute Lymph 1.22 X10 3/uL Normal 0.83-4.51 [facility] Comment on above: Performed By: #### L 101.9900, L501.6710, L100.0100 ####[facility] [address] [place], [address] Absolute Neut 3.6 X10 3/uL Normal 2.0-7.7 [facility] Comment on above: Performed By: #### L 101.9900, L501.6710, L100.0100 ####[facility] [address] [place], [address] Basophils/100 WBC (Bld) 0.7 % Normal 0-1 [facility] Comment on above: Performed By: #### L 101.9900, L501.6710, L100.0100 ####[facility] [address] [place], [address] Eosinophils/100 WBC (Bld) 2.0 % Normal 0-5 [facility] Comment on above: Performed By: #### L 101.9900, L501.6710, L100.0100 ####[facility] [address] [place], [address] Erythrocyte distribution width (RBC) [Ratio] 12.6 % Normal 11.6-14.6 [facility] Comment on above: Performed By: #### L 101.9900, L501.6710, L100.0100 ####[facility] [address] [place], [address] Hematocrit (Bld) [Volume fraction] 40.6 % Normal 40-54 [facility] Comment on above: Performed By: #### L 101.9900, L501.6710, L100.0100 ####[facility] [address] [place], [address] Hemoglobin (Bld) [Mass/Vol] 13.5 g/dL Normal 13.0-16.5 [facility] Comment on above: Performed By: #### L 101.9900, L501.6710, L100.0100 ####[facility] [address] [place], [address] IG% 0.200 Normal 0.0-0.9 [facility] Comment on above: Result Comment: IG% - Immature Granulocytes (promyelocytes, myelocytes andmetamyelocytes) > 1% indicates that a LEFT SHIFT is Present. Performed By: #### L 101.9900, L501.6710, L100.0100 ####[facility] [address] [place], [address] Lymphocytes/100 WBC (Bld) 21.8 % Normal 19-41 [facility] Comment on above: Performed By: #### L 101.9900, L501.6710, L100.0100 ####[facility] [address] [place], [address] MCH (RBC) [Entitic mass] 31.0 pg Normal 27.0-32.0 [facility] Comment on above: Performed By: #### L 101.9900, L501.6710, L100.0100 ####[facility] [address] [place], [address] MCHC (RBC) [Mass/Vol] 33.3 g/dL Normal 32-36 [facility] Comment on above: Performed By: #### L 101.9900, L501.6710, L100.0100 ####[facility] [address] [place], [address] MCV (RBC) [Entitic vol] 93.1 fL Normal 80-94 [facility] Comment on above: Performed By: #### L 101.9900, L501.6710, L100.0100 ####[facility] [address] [place], [address] Monocytes/100 WBC (Bld) 11.3 % High 0-10 [facility] Comment on above: Performed By: #### L 101.9900, L501.6710, L100.0100 ####[facility] [address] [place], [address] Neutrophils/100 WBC (Bld) 64.0 % Normal 47-70 [facility] Comment on above: Performed By: #### L 101.9900, L501.6710, L100.0100 ####[facility] [address] [place], [address] Nucleated RBC (Bld) [#/Vol] 0 10*3/uL Normal 0-5 [facility] Comment on above: Performed By: #### L 101.9900, L501.6710, L100.0100 ####[facility] [address] [place], [address] Platelet mean volume (Bld) [Entitic vol] 9.6 fL Normal 6.2-12.0 [facility] Comment on above: Performed By: #### L 101.9900, L501.6710, L100.0100 ####[facility] [address] [place], [address] Platelets (Bld) [#/Vol] 298 10*3/uL Normal 150-450 [facility] Comment on above: Performed By: #### L 101.9900, L501.6710, L100.0100 ####[facility] [address] [place], [address] RBC (Bld) [#/Vol] 4.36 10*6/uL Low 4.6-6.2 [facility] Comment on above: Performed By: #### L 101.9900, L501.6710, L100.0100 ####[facility] [address] [place], [address] RDW SD 43.3 fl Normal 35.1-43.9 [facility] Comment on above: Performed By: #### L 101.9900, L501.6710, L100.0100 ####[facility] [address] [place], [address] WBC (Bld) [#/Vol] 5.6 10*3/uL Normal 4.4-11.0 [facility] Comment on above: Performed By: #### L 101.9900, L501.6710, L100.0100 ####[facility] [address] [place], [address] CRPon 11-14-2024 C-REACTIVE PROT 7.31 mg/L High 0.0-3.0 [facility] Comment on above: Performed By: #### L 101.9900, L501.6710, L100.0100 ####[facility] [address] [place], [address] Emergency Department Summary on 11-14-2024 Emergency Department Summary Normal [facility] Eosinophil percentageOrdered By: Remus Unghannah on 11-14-2024 Eosinophils/100 WBC (Bld) 2.0 % 0-5 [facility] Erythrocyte Sed Rateon 11-14 SED RATE 7 mm/hr Normal 0-20 [facility] Comment on above: Performed By: #### L 101.9900, L501.6710, L100.0100 ####[facility] [address] [place], [address] Erythrocyte distribution wid th ratioOrdered By: Remus Unghannah on 11-14-2024 Erythrocyte distribution width (RBC) [Ratio] 12.6 % 11.6-14.6 [facility] Erythrocyte distribution wid th standard deviationOrdered By: Remus Ungur on 11-14-2024 Erythrocyte distribution width (RBC) [Ratio] 43.3 fl 35.1-43.9 [facility] Erythrocyte sedimentation ra teOrdered By: Franck Good on 11-14-2024 ESR (Bld) [Velocity] 7 mm/h 0-20 [facility] Hematocrit Auto (Bld) [Volum e fraction]Ordered By: Franck Good on 11-14-2024 Hematocrit (Bld) [Volume fraction] 40.6 % 40-54 [facility] Hemoglobin measurementOrdere d By: Franck Good on 11-14-2024 Hemoglobin (Bld) [Mass/Vol] 13.5 g/dL 13.0-16.5 [facility] Immature granulocytes/100 WB C Auto (Bld)Ordered By: Frnack Good on 11-14-2024 Immature granulocytes/100 WBC (Bld) 0.200 % 0.0-0.9 [facility] Comment on above: IG% - Immature Granu locytes (promyelocytes, myelocytes and metamyelocytes) > 1% indicates that a LEFT SHIFT is Present. Knee 4 or More Viewson 11-14 Knee 4 or More Views Normal [facility] MCV (mean corpuscular volume ) determinationOrdered By: Franck Good on 11-14-2024 MCV (RBC) [Entitic vol] 93.1 fL 80-94 [facility] Mean corpuscular hemoglobin (MCH) determinationOrdered By: Franck Good on 11-14-2024 MCH (RBC) [Entitic mass] 31.0 pg 27.0-32.0 [facility] Mean corpuscular hemoglobin concentration (MCHC) determinationOrdered By: Franck Good on 11-14-2024 MCHC (RBC) [Mass/Vol] 33.3 g/dL 32-36 [facility] Mean platelet volume determi nationOrdered By: Franck Good on 11-14-2024 Platelet mean volume (Bld) [Entitic vol] 9.6 fL 6.2-12.0 [facility] Monocyte percentageOrdered B y: Franck Good on 11-14-2024 Monocytes/100 WBC (Bld) 11.3 % High 0-10 [facility] Neutrophil percentageOrdered By: Franck Good on 11-14-2024 Neutrophils/100 WBC (Bld) 64.0 % 47-70 [facility] Nucleated red blood cell per centageOrdered By: Franck Good on 11-14-2024 Nucleated RBC/100 WBC (Bld) [Ratio] 0 % 0-5 [facility] Platelet countOrdered By: Abbie Good on 11-14-2024 Platelets (Bld) [#/Vol] 298 10*3/uL 150-450 [facility] RBC Auto (Bld) [#/Vol]Ordere d By: Franck Good on 11-14-2024 RBC (Bld) [#/Vol] 4.36 10*6/uL Low 4.6-6.2 [facility] Serum or plasma C reactive p rotein measurement (mass/volume)Ordered By: Franck Good on 11-14-2024 CRP [Mass/Vol] 7.31 mg/L High 0.0-3.0 [facility] White blood cell (WBC) count Ordered By: Franck Good on 11-14-2024 WBC (Bld) [#/Vol] 5.6 10*3/uL 4.4-11.0 [facility] Cardiology Visit Reporton Cardiology Visit Report Normal [facility] Anion gap in Serum or Plasma Ordered By: Karis Ca on 09-30-2024 Anion gap [Moles/Vol] 10 mmol/L 5-15 [facility] BUN/creatinine ratioOrdered By: Karis Ca on 09-30-2024 Urea nitrogen/Creatinine [Mass ratio] 17.4 mg/mg 10-20 [facility] Carbon dioxide, total [Moles /volume] in Central venous bloodOrdered By: Karis Ca on 09-30-2024 CO2 [Moles/Vol] 24.5 mmol/L 21.0-32.0 [facility] Chloride assayOrdered By: Julien Ca on 09-30-2024 Chloride [Moles/Vol] 108 mmol/L 98-108 [facility] GFR/1.73 sq M.predicted tiffany g non-blacks MDRD (S/P/Bld) [Vol rate/Area]Ordered By: Karis Ca on 09-30-2024 Estimated GFR (MDRD) Non-Af Amer 68 >60 [facility] Comment on above: mL/min/1.73m2 CKD-EP I Creatinine Equation (2020) Glomerular filtration rate ( GFR) estimation/1.73 sq m using serum, plasma, or whole bOrdered By: Karis Ca on 09-30-2024 GFR/1.73 sq M.predicted among non-blacks MDRD (S/P/Bld) [Vol rate/Area] 68 mL/min/{1.73_m2} >60 [facility] Comment on above: mL/min/1.73m2 CKD-EP I Creatinine Equation (2020) Potassium (Unsp spec) [Mass/ Vol]Ordered By: Karis Ca on 09-30-2024 Potassium [Moles/Vol] 4.1 mmol/L 3.3-5.1 [facility] Potassium measurement (mass/ volume)Ordered By: Karis Ca on 09-30-2024 Potassium (Unsp spec) [Mass/Vol] 4.1 mmol/L 3.3-5.1 [facility] Renal Profileon 09-30-2024 Albumin [Mass/Vol] 3.7 g/dL Normal 3.4-4.8 [facility] Comment on above: Performed By: #### L 500.3600 ####[facility] [address] [place], [address] BUN/CRE 17.4 RATIO Normal 10-20 [facility] Comment on above: Performed By: #### L 500.3600 ####[facility] [address] [place], [address] Calcium [Mass/Vol] 9.0 mg/dL Normal 7.6-11.0 [facility] Comment on above: Performed By: #### L 500.3600 ####[facility] [address] [place], [address] Chloride [Moles/Vol] 108 mmol/L Normal 98-108 [facility] Comment on above: Performed By: #### L 500.3600 ####[facility] [address] [place], [address] CO2 [Moles/Vol] 24.5 mmol/L Normal 21.0-32.0 [facility] Comment on above: Performed By: #### L 500.3600 ####[facility] [address] [place], [address] Creatinine [Mass/Vol] 1.09 mg/dL Normal 0.70-1.20 [facility] Comment on above: Performed By: #### L 500.3600 ####[facility] [address] [place], [address] GAP 10 Normal 5-15 [facility] Comment on above: Performed By: #### L 500.3600 ####[facility] [address] [place], [address] GFR/1.73 sq M.predicted among non-blacks MDRD (S/P/Bld) [Vol rate/Area] 68 mL/min/{1.73_m2} Normal >60 [facility] Comment on above: Result Comment: mL/m in/1.73m2 CKD-EPI Creatinine Equation (2020) Performed By: #### L 500.3600 ####[facility] [address] [place], [address] Glucose [Mass/Vol] 82 mg/dL Normal 70-99 [facility] Comment on above: Performed By: #### L 500.3600 ####[facility] [address] [place], [address] Phosphate [Mass/Vol] 3.4 mg/dL Normal 2.7-4.5 [facility] Comment on above: Performed By: #### L 500.3600 ####[facility] [address] [place], [address] Potassium [Moles/Vol] 4.1 mmol/L Normal 3.3-5.1 [facility] Comment on above: Performed By: #### L 500.3600 ####[facility] [address] [place], [place], [id number] Sodium [Moles/Vol] 142 mmol/L Normal 133-145 [facility] Comment on above: Performed By: #### L 500.3600 ####[facility] [address] [place], [address] Urea nitrogen [Mass/Vol] 19 mg/dL Normal 4-19 [facility] Comment on above: Performed By: #### L 500.3600 ####[facility] [address] [place], [place], [id number] Serum creatinine measurement (mass/volume)Ordered By: Karis Ca on 09-30-2024 Creatinine [Mass/Vol] 1.09 mg/dL 0.70-1.20 [facility] Serum glucose measurement (m ass/volume)Ordered By: Karis Ca on 09-30-2024 Glucose [Mass/Vol] 82 mg/dL 70-99 [facility] Serum or plasma albumin ambar urement (mass/volume)Ordered By: Karis Ca on 09-30-2024 Albumin [Mass/Vol] 3.7 g/dL 3.4-4.8 [facility] Serum or plasma calcium ambar urement (mass/volume)Ordered By: Karis Ca on 09-30-2024 Calcium [Mass/Vol] 9.0 mg/dL 7.6-11.0 [facility] Serum or plasma urea nitroge n measurement (mass/volume)Ordered By: Karis Ca on 09-30-2024 Urea nitrogen [Mass/Vol] 19 mg/dL 4-19 [facility] Serum phosphorus measurement Ordered By: Karis Ca on 09-30-2024 Phosphorus Level 3.4 mg/dL 2.7-4.5 [facility] Sodium levelOrdered By: Anam Ca on 09-30-2024 Sodium [Moles/Vol] 142 mmol/L 133-145 [facility] Anion gap in Serum or Plasma Ordered By: Yahaira Rangel on 08-24-2024 Anion gap [Moles/Vol] 10 mmol/L 5-15 [facility] BUN/creatinine ratioOrdered By: Yahaira Rangel on 08-24-2024 Urea nitrogen/Creatinine [Mass ratio] 26.6 mg/mg High 10- [facility] Basic Metabolic Profile (BMP )on 08-24-2024 BUN/CRE 26.6 RATIO High 10-20 [facility] Comment on above: Order Comment: 101.1 Performed By: #### L 500.2500, L100.0500, L501.5200 ####[facility] [address] [place], [address] Calcium [Mass/Vol] 7.2 mg/dL Low 7.6-11.0 [facility] Comment on above: Order Comment: 101.1 Performed By: #### L 500.2500, L100.0500, L501.5200 ####[facility] [address] [place], [address] Chloride [Moles/Vol] 107 mmol/L Normal 98-108 [facility] Comment on above: Order Comment: 101.1 Performed By: #### L 500.2500, L100.0500, L501.5200 ####[facility] [address] [place], [address] CO2 [Moles/Vol] 24.1 mmol/L Normal 21.0-32.0 [facility] Comment on above: Order Comment: 101.1 Performed By: #### L 500.2500, L100.0500, L501.5200 ####[facility] [address] [place], [address] Creatinine [Mass/Vol] 1.07 mg/dL Normal 0.70-1.20 [facility] Comment on above: Order Comment: 101.1 Performed By: #### L 500.2500, L100.0500, L501.5200 ####[facility] [address] [place], [address] GAP 10 Normal 5-15 [facility] Comment on above: Order Comment: 101.1 Performed By: #### L 500.2500, L100.0500, L501.5200 ####[facility] [address] [place], [address] GFR/1.73 sq M.predicted among non-blacks MDRD (S/P/Bld) [Vol rate/Area] 70 mL/min/{1.73_m2} Normal >60 [facility] Comment on above: Order Comment: 101.1 Result Comment: mL/m in/1.73m2 CKD-EPI Creatinine Equation (2020) Performed By: #### L 500.2500, L100.0500, L501.5200 ####[facility] [address] [place], [address] Glucose [Mass/Vol] 88 mg/dL Normal 70-99 [facility] Comment on above: Order Comment: 101.1 Performed By: #### L 500.2500, L100.0500, L501.5200 ####[facility] [address] [place], [address] Potassium [Moles/Vol] 4.3 mmol/L Normal 3.3-5.1 [facility] Comment on above: Order Comment: 101.1 Performed By: #### L 500.2500, L100.0500, L501.5200 ####[facility] [address] [place], [address] Sodium [Moles/Vol] 142 mmol/L Normal 133-145 [facility] Comment on above: Order Comment: 101.1 Performed By: #### L 500.2500, L100.0500, L501.5200 ####[facility] [address] [place], [address] Urea nitrogen [Mass/Vol] 29 mg/dL High 4-19 [facility] Comment on above: Order Comment: 101.1 Performed By: #### L 500.2500, L100.0500, L501.5200 ####[facility] [address] [place], [address] CBC-Complete Blood Cnt No [place] ffon 08-24-2024 Erythrocyte distribution width (RBC) [Ratio] 15.3 % High 11.6-14.6 [facility] Comment on above: Order Comment: 101.1 Performed By: #### L 500.2500, L100.0500, L501.5200 ####[facility] [address] [place], [address] Hematocrit (Bld) [Volume fraction] 35.6 % Low 40-54 [facility] Comment on above: Order Comment: 101.1 Performed By: #### L 500.2500, L100.0500, L501.5200 ####[facility] [address] [place], [address] Hemoglobin (Bld) [Mass/Vol] 11.5 g/dL Low 13.0-16.5 [facility] Comment on above: Order Comment: 101.1 Performed By: #### L 500.2500, L100.0500, L501.5200 ####[facility] [address] [place], [address] MCH (RBC) [Entitic mass] 30.3 pg Normal 27.0-32.0 [facility] Comment on above: Order Comment: 101.1 Performed By: #### L 500.2500, L100.0500, L501.5200 ####[facility] [address] [place], [address] MCHC (RBC) [Mass/Vol] 32.3 g/dL Normal 32-36 [facility] Comment on above: Order Comment: 101.1 Performed By: #### L 500.2500, L100.0500, L501.5200 ####[facility] [address] [place], [address] MCV (RBC) [Entitic vol] 93.9 fL Normal 80-94 [facility] Comment on above: Order Comment: 101.1 Performed By: #### L 500.2500, L100.0500, L501.5200 ####[facility] [address] [place], [address] Platelet mean volume (Bld) [Entitic vol] 9.3 fL Normal 6.2-12.0 [facility] Comment on above: Order Comment: 101.1 Performed By: #### L 500.2500, L100.0500, L501.5200 ####[facility] [address] [place], [address] Platelets (Bld) [#/Vol] 491 10*3/uL High 150-450 [facility] Comment on above: Order Comment: 101.1 Performed By: #### L 500.2500, L100.0500, L501.5200 ####[facility] [address] [place], [address] RBC (Bld) [#/Vol] 3.79 10*6/uL Low 4.6-6.2 [facility] Comment on above: Order Comment: 101.1 Performed By: #### L 500.2500, L100.0500, L501.5200 ####[facility] [address] [place], [address] RDW SD 50.8 fl High 35.1-43.9 [facility] Comment on above: Order Comment: 101.1 Performed By: #### L 500.2500, L100.0500, L501.5200 ####[facility] [address] [place], [address] WBC (Bld) [#/Vol] 5.1 10*3/uL Normal 4.4-11.0 [facility] Comment on above: Order Comment: 101.1 Performed By: #### L 500.2500, L100.0500, L501.5200 ####[facility] [address] [place], [address] Carbon dioxide, total [Moles /volume] in Central venous bloodOrdered By: Yahaira Rangel on 08-24-2024 CO2 [Moles/Vol] 24.1 mmol/L 21.0-32.0 [facility] Chloride assayOrdered By: Ryan Rangel on 08-24-2024 Chloride [Moles/Vol] 107 mmol/L 98-108 [facility] Erythrocyte distribution wid th (RBC) [Ratio]Ordered By: Yahaira Rangel on 08-24-2024 Erythrocyte distribution width (RBC) [Entitic vol] 50.8 fL High 35.1-43.9 [facility] Erythrocyte distribution wid th ratioOrdered By: Yahaira Rangel on 08-24-2024 Erythrocyte distribution width (RBC) [Ratio] 15.3 % High 11.6-14.6 [facility] Erythrocyte distribution wid th standard deviationOrdered By: Yahaira Rangel on 08-24-2024 Erythrocyte distribution width (RBC) [Ratio] 50.8 fl High 35.1-43.9 [facility] GFR/1.73 sq M.predicted tiffany g non-blacks MDRD (S/P/Bld) [Vol rate/Area]Ordered By: Yahaira Rangel on 08-24-2024 Estimated GFR (MDRD) Non-Af Amer 70 >60 [facility] Comment on above: mL/min/1.73m2 CKD-EP I Creatinine Equation (2020) Glomerular filtration rate ( GFR) estimation/1.73 sq m using serum, plasma, or whole bOrdered By: Yahaira Rangel on 08-24-2024 GFR/1.73 sq M.predicted among non-blacks MDRD (S/P/Bld) [Vol rate/Area] 70 mL/min/{1.73_m2} >60 [facility] Comment on above: mL/min/1.73m2 CKD-EP I Creatinine Equation (2020) Hematocrit Auto (Bld) [Volum e fraction]Ordered By: Yahaira Rangel on 08-24-2024 Hematocrit (Bld) [Volume fraction] 35.6 % Low 40-54 [facility] Hemoglobin measurementOrdere d By: Yahaira Rangel on 08-24-2024 Hemoglobin (Bld) [Mass/Vol] 11.5 g/dL Low 13.0-16.5 [facility] MCV (mean corpuscular volume ) determinationOrdered By: Yahaira Rangel on 08-24-2024 MCV (RBC) [Entitic vol] 93.9 fL 80-94 [facility] Magnesiumon 08-24-2024 Magnesium [Mass/Vol] 2.4 mg/dL High 1.5-2.2 [facility] Comment on above: Order Comment: 101.1 Performed By: #### L 500.2500, L100.0500, L501.5200 ####[facility] [address] [place], [place], [address] Magnesium (Unsp spec) [Mass/ Vol]Ordered By: Yahaira Rangel on 08-24-2024 Magnesium [Mass/Vol] 2.4 mg/dL High 1.5-2.2 [facility] Magnesium measurement (mass/ volume)Ordered By: Yahaira Rangel on 08-24-2024 Magnesium (Unsp spec) [Mass/Vol] 2.4 mg/dL High 1.5-2.2 [facility] Mean corpuscular hemoglobin (MCH) determinationOrdered By: Yahaira Rangel on 08-24-2024 MCH (RBC) [Entitic mass] 30.3 pg 27.0-32.0 [facility] Mean corpuscular hemoglobin concentration (MCHC) determinationOrdered By: Yahaira Rangel on 08-24-2024 MCHC (RBC) [Mass/Vol] 32.3 g/dL 32-36 [facility] Mean platelet volume determi nationOrdered By: Yahaira Rangel on 08-24-2024 Platelet mean volume (Bld) [Entitic vol] 9.3 fL 6.2-12.0 [facility] Platelet countOrdered By: Ryan Rangel on 08-24-2024 Platelets (Bld) [#/Vol] 491 10*3/uL High 150-450 [facility] Potassium (Unsp spec) [Mass/ Vol]Ordered By: Yahaira Rangel on 08-24-2024 Potassium [Moles/Vol] 4.3 mmol/L 3.3-5.1 [facility] Potassium measurement (mass/ volume)Ordered By: Yahaira Rangel on 08-24-2024 Potassium (Unsp spec) [Mass/Vol] 4.3 mmol/L 3.3-5.1 [facility] RBC Auto (Bld) [#/Vol]Ordere d By: Yahaira Rangel on 08-24-2024 RBC (Bld) [#/Vol] 3.79 10*6/uL Low 4.6-6.2 [facility] Serum creatinine measurement (mass/volume)Ordered By: Yahaira Rangel on 08-24-2024 Creatinine [Mass/Vol] 1.07 mg/dL 0.70-1.20 [facility] Serum glucose measurement (m ass/volume)Ordered By: Yahaira Rangel on 08-24-2024 Glucose [Mass/Vol] 88 mg/dL 70-99 [facility] Serum or plasma calcium ambar urement (mass/volume)Ordered By: Yahaira Rangel on 08-24-2024 Calcium [Mass/Vol] 7.2 mg/dL Low 7.6-11.0 [facility] Serum or plasma urea nitroge n measurement (mass/volume)Ordered By: Yahaira Rangel on 08-24-2024 Urea nitrogen [Mass/Vol] 29 mg/dL High 4-19 [facility] Sodium levelOrdered By: Krysta Rangel on 08-24-2024 Sodium [Moles/Vol] 142 mmol/L 133-145 [facility] White blood cell (WBC) count Ordered By: Yahaira Rangel on 08-24-2024 WBC (Bld) [#/Vol] 5.1 10*3/uL 4.4-11.0 [facility] Anion gap in Serum or Plasma Ordered By: Yahaira Rangel on 08-22-2024 Anion gap [Moles/Vol] 11 mmol/L - [facility] BUN/creatinine ratioOrdered By: Yahaira Rangel on 08-22-2024 Urea nitrogen/Creatinine [Mass ratio] 28.6 mg/mg High 03-20 [facility] Basic Metabolic Profile (BMP )on 08-22-2024 BUN/CRE 28.6 RATIO High 03-20 [facility] Comment on above: Order Comment: 101.1 Performed By: #### L 500.2500, L100.0500 ####[facility] [address] [place], [address] Calcium [Mass/Vol] 9.5 mg/dL Normal 7.6-11.0 [facility] Comment on above: Order Comment: 101.1 Performed By: #### L 500.2500, L100.0500 ####[facility] [address] [place], [address] Chloride [Moles/Vol] 105 mmol/L Normal 98-108 [facility] Comment on above: Order Comment: 101.1 Performed By: #### L 500.2500, L100.0500 ####[facility] [address] [place], [address] CO2 [Moles/Vol] 25.4 mmol/L Normal 21.0-32.0 [facility] Comment on above: Order Comment: 101.1 Performed By: #### L 500.2500, L100.0500 ####[facility] [address] [place], [address] Creatinine [Mass/Vol] 1.18 mg/dL Normal 0.70-1.20 [facility] Comment on above: Order Comment: 101.1 Performed By: #### L 500.2500, L100.0500 ####[facility] [address] [place], [address] GAP 11 Normal - [facility] Comment on above: Order Comment: 101.1 Performed By: #### L 500.2500, L100.0500 ####[facility] [address] [place], [address] GFR/1.73 sq M.predicted among non-blacks MDRD (S/P/Bld) [Vol rate/Area] 62 mL/min/{1.73_m2} Normal >60 [facility] Comment on above: Order Comment: 101.1 Result Comment: mL/m in/1.73m2 CKD-EPI Creatinine Equation (2020) Performed By: #### L 500.2500, L100.0500 ####[facility] [address] [place], [address] Glucose [Mass/Vol] 96 mg/dL Normal 70-99 [facility] Comment on above: Order Comment: 101.1 Performed By: #### L 500.2500, L100.0500 ####[facility] [address] [place], [address] Potassium [Moles/Vol] 4.4 mmol/L Normal 3.3-5.1 [facility] Comment on above: Order Comment: 101.1 Performed By: #### L 500.2500, L100.0500 ####[facility] [address] [place], [address] Sodium [Moles/Vol] 141 mmol/L Normal 133-145 [facility] Comment on above: Order Comment: 101.1 Performed By: #### L 500.2500, L100.0500 ####[facility] [address] [place], [address] Urea nitrogen [Mass/Vol] 34 mg/dL High 4-19 [facility] Comment on above: Order Comment: 101.1 Performed By: #### L 500.2500, L100.0500 ####[facility] [address] [place], [address] CBC-Complete Blood Cnt No Di london 08-22-2024 Erythrocyte distribution width (RBC) [Ratio] 15.2 % High 11.6-14.6 [facility] Comment on above: Order Comment: 101.1 Performed By: #### L 500.2500, L100.0500 ####[facility] [address] [place], [address] Hematocrit (Bld) [Volume fraction] 35.3 % Low 40-54 [facility] Comment on above: Order Comment: 101.1 Performed By: #### L 500.2500, L100.0500 ####[facility] [address] [place], [address] Hemoglobin (Bld) [Mass/Vol] 11.3 g/dL Low 13.0-16.5 [facility] Comment on above: Order Comment: 101.1 Performed By: #### L 500.2500, L100.0500 ####[facility] [address] [place], [address] MCH (RBC) [Entitic mass] 30.1 pg Normal 27.0-32.0 [facility] Comment on above: Order Comment: 101.1 Performed By: #### L 500.2500, L100.0500 ####[facility] [address] [place], [address] MCHC (RBC) [Mass/Vol] 32.0 g/dL Normal 32-36 [facility] Comment on above: Order Comment: 101.1 Performed By: #### L 500.2500, L100.0500 ####[facility] [address] [place], [address] MCV (RBC) [Entitic vol] 93.9 fL Normal 80-94 [facility] Comment on above: Order Comment: 101.1 Performed By: #### L 500.2500, L100.0500 ####[facility] [address] [place], [address] Platelet mean volume (Bld) [Entitic vol] 9.6 fL Normal 6.2-12.0 [facility] Comment on above: Order Comment: 101.1 Performed By: #### L 500.2500, L100.0500 ####[facility] [address] [place], [address] Platelets (Bld) [#/Vol] 531 10*3/uL High 150-450 [facility] Comment on above: Order Comment: 101.1 Performed By: #### L 500.2500, L100.0500 ####[facility] [address] [place], [address] RBC (Bld) [#/Vol] 3.76 10*6/uL Low 4.6-6.2 [facility] Comment on above: Order Comment: 101.1 Performed By: #### L 500.2500, L100.0500 ####[facility] [address] [place], [address] RDW SD 51.6 fl High 35.1-43.9 [facility] Comment on above: Order Comment: 101.1 Performed By: #### L 500.2500, L100.0500 ####[facility] [address] [place], [address] WBC (Bld) [#/Vol] 5.3 10*3/uL Normal 4.4-11.0 [facility] Comment on above: Order Comment: 101.1 Performed By: #### L 500.2500, L100.0500 ####[facility] [address] [place], [address] Carbon dioxide, total [Moles /volume] in Central venous bloodOrdered By: Yahaira Rangel on 08-22-2024 CO2 [Moles/Vol] 25.4 mmol/L 21.0-32.0 [facility] Chloride assayOrdered By: Ryan Rangel on 08-22-2024 Chloride [Moles/Vol] 105 mmol/L 98-108 [facility] Erythrocyte distribution wid th (RBC) [Ratio]Ordered By: Yahaira Rangel on 08-22-2024 Erythrocyte distribution width (RBC) [Entitic vol] 51.6 fL High 35.1-43.9 [facility] Erythrocyte distribution wid th ratioOrdered By: Yahaira Rangel on 08-22-2024 Erythrocyte distribution width (RBC) [Ratio] 15.2 % High 11.6-14.6 [facility] Erythrocyte distribution wid th standard deviationOrdered By: Yahaira Rangel on 08-22-2024 Erythrocyte distribution width (RBC) [Ratio] 51.6 fl High 35.1-43.9 [facility] GFR/1.73 sq M.predicted tiffany g non-blacks MDRD (S/P/Bld) [Vol rate/Area]Ordered By: Yahaira Rangel on 08-22-2024 Estimated GFR (MDRD) Non-Af Amer 62 >60 [facility] Comment on above: mL/min/1.73m2 CKD-EP I Creatinine Equation (2020) Glomerular filtration rate ( GFR) estimation/1.73 sq m using serum, plasma, or whole bOrdered By: Yahaira Rangel on 08-22-2024 GFR/1.73 sq M.predicted among non-blacks MDRD (S/P/Bld) [Vol rate/Area] 62 mL/min/{1.73_m2} >60 [facility] Comment on above: mL/min/1.73m2 CKD-EP I Creatinine Equation (2020) Hematocrit Auto (Bld) [Volum e fraction]Ordered By: Yahaira Rangel on 08-22-2024 Hematocrit (Bld) [Volume fraction] 35.3 % Low 40-54 [facility] Hemoglobin measurementOrdere d By: Yahaira Rangel on 08-22-2024 Hemoglobin (Bld) [Mass/Vol] 11.3 g/dL Low 13.0-16.5 [facility] MCV (mean corpuscular volume ) determinationOrdered By: Yahaira Rangel on 08-22-2024 MCV (RBC) [Entitic vol] 93.9 fL 80-94 [facility] Mean corpuscular hemoglobin (MCH) determinationOrdered By: Yahaira Rangel on 08-22-2024 MCH (RBC) [Entitic mass] 30.1 pg 27.0-32.0 [facility] Mean corpuscular hemoglobin concentration (MCHC) determinationOrdered By: Yahaira Rangel on 08-22-2024 MCHC (RBC) [Mass/Vol] 32.0 g/dL 32-36 [facility] Mean platelet volume determi nationOrdered By: Yahaira Rangel on 08-22-2024 Platelet mean volume (Bld) [Entitic vol] 9.6 fL 6.2-12.0 [facility] Platelet countOrdered By: Ryan Rangel on 08-22-2024 Platelets (Bld) [#/Vol] 531 10*3/uL High 150-450 [facility] Potassium (Unsp spec) [Mass/ Vol]Ordered By: Yahaira Rangel on 08-22-2024 Potassium [Moles/Vol] 4.4 mmol/L 3.3-5.1 [facility] Potassium measurement (mass/ volume)Ordered By: Yahaira Rangel on 08-22-2024 Potassium (Unsp spec) [Mass/Vol] 4.4 mmol/L 3.3-5.1 [facility] RBC Auto (Bld) [#/Vol]Ordere d By: Yahaira Rangel on 08-22-2024 RBC (Bld) [#/Vol] 3.76 10*6/uL Low 4.6-6.2 [facility] Serum creatinine measurement (mass/volume)Ordered By: Yahaira Rangel on 08-22-2024 Creatinine [Mass/Vol] 1.18 mg/dL 0.70-1.20 [facility] Serum glucose measurement (m ass/volume)Ordered By: Yahaira Rangel on 08-22-2024 Glucose [Mass/Vol] 96 mg/dL 70-99 [facility] Serum or plasma calcium ambar urement (mass/volume)Ordered By: Yahaira Rangel on 08-22-2024 Calcium [Mass/Vol] 9.5 mg/dL 7.6-11.0 [facility] Serum or plasma urea nitroge n measurement (mass/volume)Ordered By: Yahaira Rangel on 08-22-2024 Urea nitrogen [Mass/Vol] 34 mg/dL High - [facility] Sodium levelOrdered By: Krysta Rangel on 08-22-2024 Sodium [Moles/Vol] 141 mmol/L 133-145 [facility] White blood cell (WBC) count Ordered By: Yahaira Rangel on 08-22-2024 WBC (Bld) [#/Vol] 5.3 10*3/uL 4.4-11.0 [facility] Anion gap in Serum or Plasma Ordered By: Yahaira Rangel on 08-17-2024 Anion gap [Moles/Vol] 11 mmol/L 5-15 [facility] BUN/creatinine ratioOrdered By: Yahaira Rangel on 08-17-2024 Urea nitrogen/Creatinine [Mass ratio] 27.4 mg/mg High 10- [facility] Basic Metabolic Profile (BMP )on 08-17-2024 BUN/CRE 27.4 RATIO High - [facility] Comment on above: Order Comment: 101 Performed By: #### L 100.0500, L500.4100, L501.5200, L506.1001, L503.0106, L501.9520, L500.2500 ####[facility] [address] [place], [address] Calcium [Mass/Vol] 8.9 mg/dL Normal 7.6-11.0 [facility] Comment on above: Order Comment: 101 Performed By: #### L 100.0500, L500.4100, L501.5200, L506.1001, L503.0106, L501.9520, L500.2500 ####[facility] [address] [place], [address] Chloride [Moles/Vol] 105 mmol/L Normal 98-108 [facility] Comment on above: Order Comment: 101 Performed By: #### L 100.0500, L500.4100, L501.5200, L506.1001, L503.0106, L501.9520, L500.2500 ####[facility] [address] [place], [address] CO2 [Moles/Vol] 23.0 mmol/L Normal 21.0-32.0 [facility] Comment on above: Order Comment: 101 Performed By: #### L 100.0500, L500.4100, L501.5200, L506.1001, L503.0106, L501.9520, L500.2500 ####[facility] [address] [place], [address] Creatinine [Mass/Vol] 1.14 mg/dL Normal 0.70-1.20 [facility] Comment on above: Order Comment: 101 Performed By: #### L 100.0500, L500.4100, L501.5200, L506.1001, L503.0106, L501.9520, L500.2500 ####[facility] [address] [place], [place], [phone] GAP 11 Normal 5-15 [facility] Comment on above: Order Comment: 101 Performed By: #### L 100.0500, L500.4100, L501.5200, L506.1001, L503.0106, L501.9520, L500.2500 ####[facility] [address] [place], [address] GFR/1.73 sq M.predicted among non-blacks MDRD (S/P/Bld) [Vol rate/Area] 65 mL/min/{1.73_m2} Normal >60 [facility] Comment on above: Order Comment: 101 Result Comment: mL/m in/1.73m2 CKD-EPI Creatinine Equation (2020) Performed By: #### L 100.0500, L500.4100, L501.5200, L506.1001, L503.0106, L501.9520, L500.2500 ####[facility] [address] [place], [address] Glucose [Mass/Vol] 77 mg/dL Normal 70-99 [facility] Comment on above: Order Comment: 101 Performed By: #### L 100.0500, L500.4100, L501.5200, L506.1001, L503.0106, L501.9520, L500.2500 ####[facility] [address] [place], [address] Potassium [Moles/Vol] 4.4 mmol/L Normal 3.3-5.1 [facility] Comment on above: Order Comment: 101 Performed By: #### L 100.0500, L500.4100, L501.5200, L506.1001, L503.0106, L501.9520, L500.2500 ####[facility] [address] [place], [address] Sodium [Moles/Vol] 139 mmol/L Normal 133-145 [facility] Comment on above: Order Comment: 101 Performed By: #### L 100.0500, L500.4100, L501.5200, L506.1001, L503.0106, L501.9520, L500.2500 ####[facility] [address] [place], [address] Urea nitrogen [Mass/Vol] 31 mg/dL High -19 [facility] Comment on above: Order Comment: 101 Performed By: #### L 100.0500, L500.4100, L501.5200, L506.1001, L503.0106, L501.9520, L500.2500 ####[facility] [address] [place], [address] CBC-Complete Blood Cnt No Di ffon 08-17-2024 Erythrocyte distribution width (RBC) [Ratio] 15.9 % High 11.6-14.6 [facility] Comment on above: Order Comment: 101 Performed By: #### L 100.0500, L500.4100, L501.5200, L506.1001, L503.0106, L501.9520, L500.2500 ####[facility] [address] [place], [address] Hematocrit (Bld) [Volume fraction] 31.6 % Low 40-54 [facility] Comment on above: Order Comment: 101 Performed By: #### L 100.0500, L500.4100, L501.5200, L506.1001, L503.0106, L501.9520, L500.2500 ####[facility] [address] [place], [address] Hemoglobin (Bld) [Mass/Vol] 10.4 g/dL Low 13.0-16.5 [facility] Comment on above: Order Comment: 101 Performed By: #### L 100.0500, L500.4100, L501.5200, L506.1001, L503.0106, L501.9520, L500.2500 ####[facility] [address] [place], [address] MCH (RBC) [Entitic mass] 31.3 pg Normal 27.0-32.0 [facility] Comment on above: Order Comment: 101 Performed By: #### L 100.0500, L500.4100, L501.5200, L506.1001, L503.0106, L501.9520, L500.2500 ####[facility] [address] [place], [address] MCHC (RBC) [Mass/Vol] 32.9 g/dL Normal 32-36 [facility] Comment on above: Order Comment: 101 Performed By: #### L 100.0500, L500.4100, L501.5200, L506.1001, L503.0106, L501.9520, L500.2500 ####[facility] [address] [place], [address] MCV (RBC) [Entitic vol] 95.2 fL High 80-94 [facility] Comment on above: Order Comment: 101 Performed By: #### L 100.0500, L500.4100, L501.5200, L506.1001, L503.0106, L501.9520, L500.2500 ####[facility] [address] [place], [address] Platelet mean volume (Bld) [Entitic vol] 9.3 fL Normal 6.2-12.0 [facility] Comment on above: Order Comment: 101 Performed By: #### L 100.0500, L500.4100, L501.5200, L506.1001, L503.0106, L501.9520, L500.2500 ####[facility] [address] [place], [address] Platelets (Bld) [#/Vol] 569 10*3/uL High 150-450 [facility] Comment on above: Order Comment: 101 Performed By: #### L 100.0500, L500.4100, L501.5200, L506.1001, L503.0106, L501.9520, L500.2500 ####[facility] [address] [place], [address] RBC (Bld) [#/Vol] 3.32 10*6/uL Low 4.6-6.2 [facility] Comment on above: Order Comment: 101 Performed By: #### L 100.0500, L500.4100, L501.5200, L506.1001, L503.0106, L501.9520, L500.2500 ####[facility] [address] [place], [address] RDW SD 52.1 fl High 35.1-43.9 [facility] Comment on above: Order Comment: 101 Performed By: #### L 100.0500, L500.4100, L501.5200, L506.1001, L503.0106, L501.9520, L500.2500 ####[facility] [address] [place], [address] WBC (Bld) [#/Vol] 6.4 10*3/uL Normal 4.4-11.0 [facility] Comment on above: Order Comment: 101 Performed By: #### L 100.0500, L500.4100, L501.5200, L506.1001, L503.0106, L501.9520, L500.2500 ####[facility] [address] [facility] [place], [place], [address] Calculated very low density lipoprotein (VLDL) cholesterol measurementOrdered By: Yahaira Rangel on 08-17-2024 Calculated very low density lipoprotein (VLDL) cholesterol measurement 39 mg/dL 5-40 [facility] VLDL Cholesterol 39 mg/dL 5-40 [facility] Carbon dioxide, total [Moles /volume] in Central venous bloodOrdered By: Yahaira Rangel on 08-17-2024 CO2 [Moles/Vol] 23.0 mmol/L 21.0-32.0 [facility] Chloride assayOrdered By: Ryan Rangel on 08-17-2024 Chloride [Moles/Vol] 105 mmol/L 98-108 [facility] Erythrocyte distribution wid th (RBC) [Ratio]Ordered By: Yahaira Rangel on 08-17-2024 Erythrocyte distribution width (RBC) [Entitic vol] 52.1 fL High 35.1-43.9 [facility] Erythrocyte distribution wid th ratioOrdered By: Yahaira Rangel on 08-17-2024 Erythrocyte distribution width (RBC) [Ratio] 15.9 % High 11.6-14.6 [facility] Erythrocyte distribution wid th standard deviationOrdered By: Yahaira Rangel on 08-17-2024 Erythrocyte distribution width (RBC) [Ratio] 52.1 fl High 35.1-43.9 [facility] GFR/1.73 sq M.predicted tiffany g non-blacks MDRD (S/P/Bld) [Vol rate/Area]Ordered By: Yahaira Rangel on 08-17-2024 Estimated GFR (MDRD) Non-Af Amer 65 >60 [facility] Comment on above: mL/min/1.73m2 CKD-EP I Creatinine Equation (2020) Glomerular filtration rate ( GFR) estimation/1.73 sq m using serum, plasma, or whole bOrdered By: Yahaira Rangel on 08-17-2024 GFR/1.73 sq M.predicted among non-blacks MDRD (S/P/Bld) [Vol rate/Area] 65 mL/min/{1.73_m2} >60 [facility] Comment on above: mL/min/1.73m2 CKD-EP I Creatinine Equation (2020) Hematocrit Auto (Bld) [Volum e fraction]Ordered By: Yahaira Rangel on 08-17-2024 Hematocrit (Bld) [Volume fraction] 31.6 % Low 40-54 [facility] Hemoglobin measurementOrdere d By: Yahaira Rangel on 08-17-2024 Hemoglobin (Bld) [Mass/Vol] 10.4 g/dL Low 13.0-16.5 [facility] L503.0106on 08-17-2024 Cobalamin (Vitamin B12) [Mass/Vol] 971 pg/mL High 180-914 [facility] Comment on above: Order Comment: 101 Performed By: #### L 100.0500, L500.4100, L501.5200, L506.1001, L503.0106, L501.9520, L500.2500 ####[facility] [address] [place], [address] L506.1001on 08-17-2024 Vitamin D 25-OH 60.1 ng/mL Normal 30-100 [facility] Comment on above: Order Comment: 101 Result Comment: Maya min D StatusDeficiency: <20 ng/mL (50nmol/L)Insufficiency: 20-30 ng/mL (50-75 nmol/L)Sufficiency: 30-100 ng/mL (75-250 nmol/L)Toxicity: >100 ng/mL (>250 nmol/L) Performed By: #### L 100.0500, L500.4100, L501.5200, L506.1001, L503.0106, L501.9520, L500.2500 ####[facility] [address] [place], [place], [phone]) LDL calc ser/plasOrdered By: Yahaira Rangel on 08-17-2024 Cholesterol in LDL [Mass/Vol] 112 mg/dL [facility] Comment on above: Ytnatcxfts=435-619 m g/dL & Higher Hfsq=944 mg/dL or greater LDL Cholesterol, Calculated 112 mg/dL [facility] Comment on above: Nhogunseix=979-829 m g/dL & Higher Wqht=747 mg/dL or greater Lipid Profileon 08-17-2024 CHOL:HDL 6.81 Normal [facility] Comment on above: Order Comment: 101 Performed By: #### L 100.0500, L500.4100, L501.5200, L506.1001, L503.0106, L501.9520, L500.2500 ####[facility] [address] [place], [place], [phone]) Cholesterol [Mass/Vol] 177 mg/dL Normal <=200 [facility] Comment on above: Order Comment: 101 Result Comment: Chol esterol level, Desirable <200 mg/dLBorderline high cholesterol 200-239 mg/dLHigh cholesterol >=240 mg/dLRecommendations of the NCEP Adult Treatment Panel for thefollowing risk-cutoff thresholds for the [place] Americanpulation. Performed By: #### L 100.0500, L500.4100, L501.5200, L506.1001, L503.0106, L501.9520, L500.2500 ####[facility] [address] [place], [place], [id number] Cholesterol in HDL [Mass/Vol] 26 mg/dL Low [facility] Comment on above: Order Comment: 101 Result Comment: Leslie onal Cholesterol Education Program (NCEP) guidelines:<40 mg/dL: Low HDL-cholesterol (major risk factor for CHD)>= 60 mg/dL: High HDL-cholesterol (negative risk factor forCHD)HDL-cholesterol is affected by a number of factors, e.g.smoking, exercise, hormones, sex and age. Performed By: #### L 100.0500, L500.4100, L501.5200, L506.1001, L503.0106, L501.9520, L500.2500 ####[facility] [address] [place], [address] Cholesterol in LDL [Mass/Vol] 112 mg/dL Normal [facility] Comment on above: Order Comment: 101 Result Comment: Bord eiglql=224-862 mg/dL Higher Xwdd=787 mg/dL or greater Performed By: #### L 100.0500, L500.4100, L501.5200, L506.1001, L503.0106, L501.9520, L500.2500 ####[facility] [address] [place], [address] Cholesterol in VLDL [Mass/Vol] 39 mg/dL Normal 5-40 [facility] Comment on above: Order Comment: 101 Performed By: #### L 100.0500, L500.4100, L501.5200, L506.1001, L503.0106, L501.9520, L500.2500 ####[facility] [address] [place], [address] Triglyceride [Mass/Vol] 195 mg/dL Normal [facility] Comment on above: Order Comment: 101 Result Comment: The drugs N-Acetylcysteine and Metamizole may falselydepress this assay.Normal range: <150 mg/dLBorderline High: 150-199 mg/dLHigh: 200-499 mg/dLVery High: >500 mg/dL Performed By: #### L 100.0500, L500.4100, L501.5200, L506.1001, L503.0106, L501.9520, L500.2500 ####[facility] [address] [place], [address] MCV (mean corpuscular volume ) determinationOrdered By: Yahaira Rangel on 08-17-2024 MCV (RBC) [Entitic vol] 95.2 fL High 80-94 [facility] Magnesiumon 08-17-2024 Magnesium [Mass/Vol] 2.3 mg/dL High 1.5-2.2 [facility] Comment on above: Order Comment: 101 Performed By: #### L 100.0500, L500.4100, L501.5200, L506.1001, L503.0106, L501.9520, L500.2500 ####[facility] [address] [place], [address] Magnesium (Unsp spec) [Mass/ Vol]Ordered By: Yahaira Rangel on 08-17-2024 Magnesium [Mass/Vol] 2.3 mg/dL High 1.5-2.2 [facility] Magnesium measurement (mass/ volume)Ordered By: Yahaira Rangel on 08-17-2024 Magnesium (Unsp spec) [Mass/Vol] 2.3 mg/dL High 1.5-2.2 [facility] Mean corpuscular hemoglobin (MCH) determinationOrdered By: Yahaira Rangel on 08-17-2024 MCH (RBC) [Entitic mass] 31.3 pg 27.0-32.0 [facility] Mean corpuscular hemoglobin concentration (MCHC) determinationOrdered By: Yahaira Rangel on 08-17-2024 MCHC (RBC) [Mass/Vol] 32.9 g/dL 32-36 [facility] Mean platelet volume determi nationOrdered By: Yahaira Rangel on 08-17-2024 Platelet mean volume (Bld) [Entitic vol] 9.3 fL 6.2-12.0 [facility] Platelet countOrdered By: Ryan Rangel on 08-17-2024 Platelets (Bld) [#/Vol] 569 10*3/uL High 150-450 [facility] Potassium (Unsp spec) [Mass/ Vol]Ordered By: Yahaira Rangel on 08-17-2024 Potassium [Moles/Vol] 4.4 mmol/L 3.3-5.1 [facility] Potassium measurement (mass/ volume)Ordered By: Yahaira Rangel on 08-17-2024 Potassium (Unsp spec) [Mass/Vol] 4.4 mmol/L 3.3-5.1 [facility] RBC Auto (Bld) [#/Vol]Ordere d By: Yahaira Rangel on 08-17-2024 RBC (Bld) [#/Vol] 3.32 10*6/uL Low 4.6-6.2 [facility] Screening total cholesterol/ high density lipoprotein (HDL) cholesterol ratioOrdered By: Yahaira Rangel on 08-17-2024 Cholesterol.total/Brenda sterol in HDL [Mass ratio] 6.81 {ratio} [facility] Serum creatinine measurement (mass/volume)Ordered By: Yahaira Rangel on 08-17-2024 Creatinine [Mass/Vol] 1.14 mg/dL 0.70-1.20 [facility] Serum glucose measurement (m ass/volume)Ordered By: Yahaira Rangel on 08-17-2024 Glucose [Mass/Vol] 77 mg/dL 70-99 [facility] Serum or plasma calcium ambar urement (mass/volume)Ordered By: Yahaira Rangel on 08-17-2024 Calcium [Mass/Vol] 8.9 mg/dL 7.6-11.0 [facility] Serum or plasma cholesterol in HDL measurement (mass/volume)Ordered By: Yahaira Rangel on 08-17-2024 Cholesterol in HDL [Mass/Vol] 26 mg/dL Low >40 [facility] Comment on above: National Cholesterol Education Program (NCEP) guidelines:<40 mg/dL: Low HDL-cholesterol (major risk factor for CHD)>= 60 mg/dL: High HDL-cholesterol (negative risk factor for CHD)HDL-cholesterol is affected by a number of factors, e.g. smoking, exercise, hormones, sex and age. Serum or plasma cholesterol measurement (mass/volume)Ordered By: Yahaira Rangel on 08-17-2024 Cholesterol [Mass/Vol] 177 mg/dL <201 [facility] Comment on above: Cholesterol level, D esirable <200 mg/dLBorderline high cholesterol 200-239 mg/dLHigh cholesterol >=240 mg/dLRecommendations of the NCEP Adult Treatment Panel for the following risk-cutoff thresholds for the [place] population. Serum or plasma urea nitroge n measurement (mass/volume)Ordered By: Yahaira Rangel on 08-17-2024 Urea nitrogen [Mass/Vol] 31 mg/dL High 4-19 [facility] Sodium levelOrdered By: Krysta Rangel on 08-17-2024 Sodium [Moles/Vol] 139 mmol/L 133-145 [facility] TSH DL <= 0.005 mIU/L QnOrde red By: Yahaira Rangel on 08-17-2024 Thyroid Stimulating Hormone (TSH) 3.090 uIU/mL 0.300-4.20 0 [facility] TSH Qn 3.090 uIU/mL 0.300-4.20 0 [facility] Thyroid Stim Hormone (TSH)on 08-17-2024 TSH 3.090 uIU/mL Normal 0.300-4.20 0 [facility] Comment on above: Order Comment: 101 Performed By: #### L 100.0500, L500.4100, L501.5200, L506.1001, L503.0106, L501.9520, L500.2500 ####[facility] [address] [place], [address] Triglycerides measurementOrd ered By: Yahaira Rangel on 08-17-2024 Triglyceride [Mass/Vol] 195 mg/dL <199 [facility] Comment on above: The drugs N-Acetylcy steine and Metamizole may falsely depress this assay. Normal range: <150 mg/dLBorderline High: 150-199 mg/dLHigh: 200-499 mg/dLVery High: >500 mg/dL Vitamin B12 ser/plasOrdered By: Yahaira Rangel on 08-17-2024 Cobalamin (Vitamin B12) [Mass/Vol] 971 pg/mL High 180-914 [facility] Vitamin D, 25-hydroxyOrdered By: Yahaira Rangel on 08-17-2024 Vitamin D 25-Hydroxy 60.1 ng/mL 30-100 [facility] Comment on above: Vitamin D StatusDefi ciency: <20 ng/mL (50nmol/L)Insufficiency: 20-30 ng/mL (50-75 nmol/L)Sufficiency: 30-100 ng/mL (75-250 nmol/L)Toxicity: >100 ng/mL (>250 nmol/L) White blood cell (WBC) count Ordered By: Yahaira Rangel on 08-17-2024 WBC (Bld) [#/Vol] 6.4 10*3/uL 4.4-11.0 [facility] Basic Metabolic Profile (BMP )on 08-16-2024 BUN Normal 4-19 [facility] Comment on above: Result Comment: Canc elled via OM: MD Ordered Performed By: #### L 100.0100, L500.2500 ####[facility] [address] [place], [address] BUN/CRE Normal 10-20 [facility] Comment on above: Result Comment: Canc elled via OM: MD Ordered Performed By: #### L 100.0100, L500.2500 ####[facility] [address] [place], [address] Calcium Normal 7.6-11.0 [facility] Comment on above: Result Comment: Canc elled via OM: MD Ordered Performed By: #### L 100.0100, L500.2500 ####[facility] [address] [place], [address] CL Normal 98-108 [facility] Comment on above: Result Comment: Canc elled via OM: MD Ordered Performed By: #### L 100.0100, L500.2500 ####[facility] [address] [place], [address] CO2 Normal 21.0-32.0 [facility] Comment on above: Result Comment: Canc elled via OM: MD Ordered Performed By: #### L 100.0100, L500.2500 ####[facility] [address] [place], [address] CREAT,SERUM Normal 0.70-1.20 [facility] Comment on above: Result Comment: Canc elled via OM: MD Ordered Performed By: #### L 100.0100, L500.2500 ####[facility] [address] [place], [address] eGFR Normal >60 [facility] Comment on above: Result Comment: Canc elled via OM: MD Ordered Performed By: #### L 100.0100, L500.2500 ####[facility] [address] [place], [address] GAP Normal 5-15 [facility] Comment on above: Result Comment: Canc elled via OM: MD Ordered Performed By: #### L 100.0100, L500.2500 ####[facility] [address] [place], [address] GLU Normal 70-99 [facility] Comment on above: Result Comment: Canc elled via OM: MD Ordered Performed By: #### L 100.0100, L500.2500 ####[facility] [address] [place], [address] Potassium Normal 3.3-5.1 [facility] Comment on above: Result Comment: Canc elled via OM: MD Ordered Performed By: #### L 100.0100, L500.2500 ####[facility] [address] [place], [address] Basic Metabolic Profile (BMP) Normal 133-145 [facility] [facility] Comment on above: Result Comment: Canc elled via OM: MD Ordered Performed By: #### L 100.0100, L500.2500 ####[facility] [address] [place], [address] CBC W/Diff, Automatedon - Absolute Neut Normal 2.0-7.7 [facility] Comment on above: Result Comment: Canc elled via OM: MD Ordered Performed By: #### L 100.0100, L500.2500 ####[facility] [address] [place], [address] HCT Normal 40-54 [facility] Comment on above: Result Comment: Canc elled via OM: MD Ordered Performed By: #### L 100.0100, L500.2500 ####[facility] [address] [place], [address] HGB Normal 13.0-16.5 [facility] Comment on above: Result Comment: Canc elled via OM: MD Ordered Performed By: #### L 100.0100, L500.2500 ####[facility] [address] [place], [address] MCH Normal 27.0-32.0 [facility] Comment on above: Result Comment: Canc elled via OM: MD Ordered Performed By: #### L 100.0100, L500.2500 ####[facility] [address] [place], [address] MCHC Normal 32-36 [facility] Comment on above: Result Comment: Canc elled via OM: MD Ordered Performed By: #### L 100.0100, L500.2500 ####[facility] [address] [place], [address] MCV Normal 80-94 [facility] Comment on above: Result Comment: Canc elled via OM: MD Ordered Performed By: #### L 100.0100, L500.2500 ####[facility] [address] [place], [address] NEUT% Normal 47-70 [facility] Comment on above: Result Comment: Canc elled via OM: MD Ordered Performed By: #### L 100.0100, L500.2500 ####[facility] [address] [place], [address] PLT Normal 150-450 [facility] Comment on above: Result Comment: Canc elled via OM: MD Ordered Performed By: #### L 100.0100, L500.2500 ####[facility] [address] [place], [address] RBC Normal 4.6-6.2 [facility] Comment on above: Result Comment: Canc elled via OM: MD Ordered Performed By: #### L 100.0100, L500.2500 ####[facility] [address] [place], [address] RDW CV Normal 11.6-14.6 [facility] Comment on above: Result Comment: Canc elled via OM: MD Ordered Performed By: #### L 100.0100, L500.2500 ####[facility] [address] [place], [address] RDW SD Normal 35.1-43.9 [facility] Comment on above: Result Comment: Canc elled via OM: MD Ordered Performed By: #### L 100.0100, L500.2500 ####[facility] [address] [place], [address] WBC Normal 4.4-11.0 [facility] Comment on above: Result Comment: Canc elled via OM: MD Ordered Performed By: #### L 100.0100, L500.2500 ####[facility] [address] [place], [address] Emergency Department Summary on 08-16-2024 Emergency Department Summary Normal [facility] US ANESTHESIA BLOCKon 2024 US ANESTHESIA BLOCK ORIGINAL Images acquired, not reported on this accession number. Normal [facility] .GFRon 08-06-2024 Estimated Glomerular Filtration Rate 74 ml/min/1.73sqm Normal [facility] Comment on above: Result Comment: Stages of [...] Performed By: #### B MP, GFR #### [address] [address] BMPon 08-06-2024 BUN/Creatinine Ratio 24 ratio Normal 7-27 [facility] Comment on above: Performed By: #### B MP, GFR #### [address] [address] Calcium [Mass/Vol] 8.3 mg/dL Low 8.4-10.2 [facility] Comment on above: Performed By: #### B MP, GFR #### [address] [address] Chloride [Moles/Vol] 106 mmol/L Normal 98-107 [facility] Comment on above: Performed By: #### B MP, GFR #### [address] [address] CO2 [Moles/Vol] 24 mmol/L Normal 23-31 [facility] Comment on above: Performed By: #### B MP, GFR #### [address] [address] Creatinine [Mass/Vol] 1.02 mg/dL Normal 0.70-1.30 [facility] Comment on above: Result Comment: Test ing performed on Siemens Dimension EXL analyzer using a modified kinetic Ashley technique. Performed By: #### B MP, GFR #### [address] [address] Electrolyte Balance 10.0 mEq/L Normal 4.0-15.0 [facility] Comment on above: Performed By: #### B MP, GFR #### [address] [address] Glucose [Mass/Vol] 86 mg/dL Normal 83-110 [facility] Comment on above: Performed By: #### B MP, GFR #### [address] [address] Potassium [Moles/Vol] 4.2 mmol/L Normal 3.5-5.1 [facility] Comment on above: Performed By: #### B MP, GFR #### [address] [address] Sodium [Moles/Vol] 140 mmol/L Normal 136-145 [facility] Comment on above: Performed By: #### B MP, GFR #### [address] [address] Urea nitrogen [Mass/Vol] 24 mg/dL High 7-18 [facility] Comment on above: Performed By: #### B MP, GFR #### [address] [address] .Auto Diffon 08-04-2024 Basophil, Absolute 0.0 10 3/mcL Normal 0.0-0.2 [facility] Comment on above: Performed By: #### B MP, GFR #### [address] [address] Basophils/100 WBC (Bld) 0.2 % Normal 0.0-2.5 [facility] Comment on above: Performed By: #### B MP, GFR #### [address] [address] Eosinophil, Absolute 0.0 10 3/mcL Normal 0.0-0.7 [facility] Comment on above: Performed By: #### B MP, GFR #### [address] [address] Eosinophils/100 WBC (Bld) 0.5 % Normal 0.0-7.0 [facility] Comment on above: Performed By: #### B MP, GFR #### [address] [place], [place] [address] Lymphocyte, Absolute 1.0 10 3/mcL Normal 0.9-4.3 [facility] Comment on above: Performed By: #### B MP, GFR #### [address] [address] Lymphocytes/100 WBC (Bld) 13.9 % Low 20.0-40.0 [facility] Comment on above: Performed By: #### B MP, GFR #### [address] [address] Monocyte, Absolute 0.8 10 3/mcL Normal 0.1-1.4 [facility] Comment on above: Performed By: #### B MP, GFR #### [address] [address] Monocytes/100 WBC (Bld) 11.2 % Normal 2.0-13.0 [facility] Comment on above: Performed By: #### B MP, GFR #### [address] [address] Neutrophils/100 WBC (Bld) 74.2 % Normal 50.0-75.0 [facility] Comment on above: Performed By: #### B MP, GFR #### [address] [address] .GFRon 08-04-2024 Estimated Glomerular Filtration Rate 53 ml/min/1.73sqm Normal [facility] Comment on above: Result Comment: Stages of [...] Performed By: #### B MP, GFR #### [address] [address] .NEUABSon 08-04-2024 Neutrophil, Absolute 5.5 10 3/mcL Normal 2.3-8.1 [facility] Comment on above: Performed By: #### B MP, GFR #### [address] [address] BMPon 08-04-2024 BUN/Creatinine Ratio 25 ratio Normal 7-27 [facility] Comment on above: Performed By: #### B MP, GFR #### [address] [address] Calcium [Mass/Vol] 8.1 mg/dL Low 8.4-10.2 [facility] Comment on above: Performed By: #### B MP, GFR #### [id number] Chloride [Moles/Vol] 110 mmol/L High 98-107 [facility] Comment on above: Performed By: #### B MP, GFR #### [address] [address] CO2 [Moles/Vol] 29 mmol/L Normal 23-31 [facility] Comment on above: Performed By: #### B MP, GFR #### [address] [address] Creatinine [Mass/Vol] 1.34 mg/dL High 0.70-1.30 [facility] Comment on above: Result Comment: Test ing performed on Siemens Dimension EXL analyzer using a modified kinetic Ashley technique. Performed By: #### B MP, GFR #### [place] [address] Electrolyte Balance 3.0 mEq/L Low 4.0-15.0 [facility] Comment on above: Performed By: #### B MP, GFR #### [address] [address] Glucose [Mass/Vol] 89 mg/dL Normal 83-110 [facility] Comment on above: Performed By: #### B MP, GFR #### [phone] Potassium [Moles/Vol] 4.6 mmol/L Normal 3.5-5.1 [facility] Comment on above: Performed By: #### B MP, GFR #### [place] [phone] Sodium [Moles/Vol] 142 mmol/L Normal 136-145 [facility] Comment on above: Performed By: #### B MP, GFR #### [place] [phone] Urea nitrogen [Mass/Vol] 33 mg/dL High 7-18 [facility] Comment on above: Performed By: #### B MP, GFR #### [address] [address] CBCon 08-04-2024 Erythrocyte distribution width (RBC) [Ratio] 15.6 % High 11.5-15.5 [facility] Comment on above: Performed By: #### B MP, GFR #### [address] [address] Hematocrit (Bld) [Volume fraction] 30.6 % Low 40.0-52.0 [facility] Comment on above: Performed By: #### B MP, GFR #### [place] [phone] Hgb 10.4 G/dL Low 13.0-17.5 [facility] Comment on above: Performed By: #### B MP, GFR #### [address] [address] MCH (RBC) [Entitic mass] 30.9 pg Normal 27.0-33.0 [facility] Comment on above: Performed By: #### B MP, GFR #### [address] [address] MCHC 33.9 G/dL Normal 32.0-36.0 [facility] Comment on above: Performed By: #### B MP, GFR #### [address] [address] MCV (RBC) [Entitic vol] 91.1 fL Normal 81.0-100.0 [facility] Comment on above: Performed By: #### B MP, GFR #### [address] [address] Platelet 208 10 3/mcL Normal 150-450 [facility] Comment on above: Performed By: #### B MP, GFR #### [address] [address] Platelet mean volume (Bld) [Entitic vol] 8.2 fL Normal 6.4-10.5 [facility] Comment on above: Performed By: #### B MP, GFR #### [address] [address] RBC 3.35 10 6/mcL Low 4.50-6.00 [facility] Comment on above: Performed By: #### B MP, GFR #### [address] [address] WBC 7.4 10 3/mcL Normal 4.5-10.8 [facility] Comment on above: Performed By: #### B MP, GFR #### [address] [address] .Auto Diffon 08-03-2024 Basophil, Absolute 0.0 10 3/mcL Normal 0.0-0.2 [facility] Comment on above: Performed By: #### B MP, GFR #### [address] [address] Basophils/100 WBC (Bld) 0.1 % Normal 0.0-2.5 [facility] Comment on above: Performed By: #### B MP, GFR #### [address] [address] Eosinophil, Absolute 0.0 10 3/mcL Normal 0.0-0.7 [facility] Comment on above: Performed By: #### B MP, GFR #### [address] [address] Eosinophils/100 WBC (Bld) 0.0 % Normal 0.0-7.0 [facility] Comment on above: Performed By: #### B MP, GFR #### [address] [address] Lymphocyte, Absolute 0.5 10 3/mcL Low 0.9-4.3 [facility] Comment on above: Performed By: #### B MP, GFR #### [address] [address] Lymphocytes/100 WBC (Bld) 3.8 % Low 20.0-40.0 [facility] Comment on above: Performed By: #### B MP, GFR #### [address] [address] Monocyte, Absolute 0.9 10 3/mcL Normal 0.1-1.4 [facility] Comment on above: Performed By: #### B MP, GFR #### [address] [address] Monocytes/100 WBC (Bld) 6.0 % Normal 2.0-13.0 [facility] Comment on above: Performed By: #### B MP, GFR #### [address] [address] Neutrophils/100 WBC (Bld) 90.1 % High 50.0-75.0 [facility] Comment on above: Performed By: #### B MP, GFR #### [address] [address] .GFRon 08-03-2024 Estimated Glomerular Filtration Rate 46 ml/min/1.73sqm Normal [facility] Comment on above: Result Comment: Stages of [...] Performed By: #### B MP, GFR #### [address] [address] .NEUABSon 08-03-2024 Neutrophil, Absolute 12.9 10 3/mcL High 2.3-8.1 [facility] Comment on above: Performed By: #### B MP, GFR #### [address] [address] BMPon 08-03-2024 BUN/Creatinine Ratio 19 ratio Normal 7-27 [facility] Comment on above: Performed By: #### B MP, GFR #### [address] [address] Calcium [Mass/Vol] 8.3 mg/dL Low 8.4-10.2 [facility] Comment on above: Performed By: #### B MP, GFR #### [address] [address] Chloride [Moles/Vol] 106 mmol/L Normal 98-107 [facility] Comment on above: Performed By: #### B MP, GFR #### [address] [address] CO2 [Moles/Vol] 26 mmol/L Normal 23-31 [facility] Comment on above: Performed By: #### B MP, GFR #### [address] [address] Creatinine [Mass/Vol] 1.51 mg/dL High 0.70-1.30 [facility] Comment on above: Result Comment: Test ing performed on Siemens Dimension EXL analyzer using a modified kinetic Ashley technique. Performed By: #### B MP, GFR #### [address] [address] Electrolyte Balance 9.0 mEq/L Normal 4.0-15.0 [facility] Comment on above: Performed By: #### B MP, GFR #### [address] [address] Glucose [Mass/Vol] 152 mg/dL High 83-110 [facility] Comment on above: Performed By: #### B MP, GFR #### [address] [address] Potassium [Moles/Vol] 5.1 mmol/L Normal 3.5-5.1 [facility] Comment on above: Performed By: #### B MP, GFR #### [address] [address] Sodium [Moles/Vol] 141 mmol/L Normal 136-145 [facility] Comment on above: Performed By: #### B MP, GFR #### [address] [address] Urea nitrogen [Mass/Vol] 28 mg/dL High 7-18 [facility] Comment on above: Performed By: #### B MP, GFR #### [address] [address] CBCon 08-03-2024 Erythrocyte distribution width (RBC) [Ratio] 15.1 % Normal 11.5-15.5 [facility] Comment on above: Performed By: #### B MP, GFR #### [address] [address] Hematocrit (Bld) [Volume fraction] 34.8 % Low 40.0-52.0 [facility] Comment on above: Performed By: #### B MP, GFR #### [address] [address] Hgb 11.7 G/dL Low 13.0-17.5 [facility] Comment on above: Performed By: #### B MP, GFR #### [address] [address] MCH (RBC) [Entitic mass] 30.4 pg Normal 27.0-33.0 [facility] Comment on above: Performed By: #### B MP, GFR #### [address] [address] MCHC 33.7 G/dL Normal 32.0-36.0 [facility] Comment on above: Performed By: #### B MP, GFR #### [address] [address] MCV (RBC) [Entitic vol] 90.3 fL Normal 81.0-100.0 [facility] Comment on above: Performed By: #### B MP, GFR #### [address] [address] Platelet 262 10 3/mcL Normal 150-450 [facility] Comment on above: Performed By: #### B MP, GFR #### [address] [address] Platelet mean volume (Bld) [Entitic vol] 8.3 fL Normal 6.4-10.5 [facility] Comment on above: Performed By: #### B MP, GFR #### [address] [address] RBC 3.86 10 6/mcL Low 4.50-6.00 [facility] Comment on above: Performed By: #### B MP, GFR #### [address] [address] WBC 14.4 10 3/mcL High 4.5-10.8 [facility] Comment on above: Performed By: #### B MP, GFR #### [address] [address] ABO/Rh (Gel)on 08-02-2024 ABO/Rh Interp Positive Invalid Interpretation Code [facility] Comment on above: Performed By: #### A PATRICIA, ADIFF, ABOGEL, ABSGEL, BMP, CBC, GFR, ALB #### [address] [place], [place] [address] ABS (Gel)on 08-02-2024 ABSC Interp (Gel) Negative Normal [facility] Comment on above: Performed By: #### A PATRICIA, ADIFF, ABOGEL, ABSGEL, BMP, CBC, GFR, ALB #### [facility] [address] [place], [place] [address] XR KNEE 1 OR 2 VIEWS RIGHTon [...] 12:53:38 PM Ordering Provider: DAY NEWBERRY Normal [facility] Absolute lymphocyte countOrd ered By: Day Newberry on 07-21-2024 Lymphocytes Auto (Unsp spec) [#/Vol] 1.13 10*3/uL 0.83-4.51 [facility] Absolute neutrophil countOrd ered By: Day Newberry on 07-21-2024 Neutrophils (Bld) [#/Vol] 3.1 10*3/uL 2.0-7.7 [facility] Albumin, Serumon 07-21-2024 Albumin [Mass/Vol] 3.4 g/dL Normal 3.2-5.0 [facility] Comment on above: Performed By: #### L 501.1800, L100.0100 ####[facility] [address] [place], [address] Automated lymphocyte count a s percentage of total leukocytesOrdered By: Day Newberry on 07-21-2024 Lymphocytes/100 WBC Auto (Unsp spec) 21.4 % 19-41 [facility] Basophil percentageOrdered B y: Day Newberry on 07-21-2024 Basophils/100 WBC (Bld) 1.1 % High 0-1 [facility] CBC W/Diff, Automatedon 07-03-2024 Absolute Lymph 1.13 X10 3/uL Normal 0.83-4.51 [facility] Comment on above: Performed By: #### L 501.1800, L100.0100 ####[facility] [address] [place], [address] Absolute Neut 3.1 X10 3/uL Normal 2.0-7.7 [facility] Comment on above: Performed By: #### L 501.1800, L100.0100 ####[facility] [address] [place], [address] Basophils/100 WBC (Bld) 1.1 % High 0-1 [facility] Comment on above: Performed By: #### L 501.1800, L100.0100 ####[facility] [address] [place], [address] Eosinophils/100 WBC (Bld) 6.6 % High 0-5 [facility] Comment on above: Performed By: #### L 501.1800, L100.0100 ####[facility] [address] [place], [address] Erythrocyte distribution width (RBC) [Ratio] 14.5 % Normal 11.6-14.6 [facility] Comment on above: Performed By: #### L 501.1800, L100.0100 ####[facility] [address] [place], [address] Hematocrit (Bld) [Volume fraction] 43.2 % Normal 40-54 [facility] Comment on above: Performed By: #### L 501.1800, L100.0100 ####[facility] [address] [place], [address] Hemoglobin (Bld) [Mass/Vol] 13.6 g/dL Normal 13.0-16.5 [facility] Comment on above: Performed By: #### L 501.1800, L100.0100 ####[facility] [address] [place], [address] IG% 0.200 Normal 0.0-0.9 [facility] Comment on above: Result Comment: IG% - Immature Granulocytes (promyelocytes, myelocytes andmetamyelocytes) > 1% indicates that a LEFT SHIFT is Present. Performed By: #### L 501.1800, L100.0100 ####[facility] [address] [place], [address] Lymphocytes/100 WBC (Bld) 21.4 % Normal 19-41 [facility] Comment on above: Performed By: #### L 501.1800, L100.0100 ####[facility] [address] [place], [address] MCH (RBC) [Entitic mass] 29.8 pg Normal 27.0-32.0 [facility] Comment on above: Performed By: #### L 501.1800, L100.0100 ####[facility] [address] [place], [address] MCHC (RBC) [Mass/Vol] 31.5 g/dL Low 32-36 [facility] Comment on above: Performed By: #### L 501.1800, L100.0100 ####[facility] [address] [place], [address] MCV (RBC) [Entitic vol] 94.7 fL High 80-94 [facility] Comment on above: Performed By: #### L 501.1800, L100.0100 ####[facility] [address] [place], [address] Monocytes/100 WBC (Bld) 11.3 % High 0-10 [facility] Comment on above: Performed By: #### L 501.1800, L100.0100 ####[facility] [address] [place], [address] Neutrophils/100 WBC (Bld) 59.4 % Normal 47-70 [facility] Comment on above: Performed By: #### L 501.1800, L100.0100 ####[facility] [address] [place], [address] Nucleated RBC (Bld) [#/Vol] 0 10*3/uL Normal 0-5 [facility] Comment on above: Performed By: #### L 501.1800, L100.0100 ####[facility] [address] [place], [address] Platelet mean volume (Bld) [Entitic vol] 10.6 fL Normal 6.2-12.0 [facility] Comment on above: Performed By: #### L 501.1800, L100.0100 ####[facility] [address] [place], [address] Platelets (Bld) [#/Vol] 335 10*3/uL Normal 150-450 [facility] Comment on above: Performed By: #### L 501.1800, L100.0100 ####[facility] [address] [place], [address] RBC (Bld) [#/Vol] 4.56 10*6/uL Low 4.6-6.2 [facility] Comment on above: Performed By: #### L 501.1800, L100.0100 ####[facility] [address] [place], [address] RDW SD 50.1 fl High 35.1-43.9 [facility] Comment on above: Performed By: #### L 501.1800, L100.0100 ####[facility] [address] [place], [address] WBC (Bld) [#/Vol] 5.3 10*3/uL Normal 4.4-11.0 [facility] Comment on above: Performed By: #### L 501.1800, L100.0100 ####[facility] [address] [place], [address] Eosinophil percentageOrdered By: Day Newberry on 07-21-2024 Eosinophils/100 WBC (Bld) 6.6 % High 0-5 [facility] Erythrocyte distribution wid th ratioOrdered By: Day Newberry on 07-21-2024 Erythrocyte distribution width (RBC) [Ratio] 14.5 % 11.6-14.6 [facility] Erythrocyte distribution wid th standard deviationOrdered By: Day Newberry on 07-21-2024 Erythrocyte distribution width (RBC) [Entitic vol] 50.1 fL High 35.1-43.9 [facility] Erythrocyte distribution width (RBC) [Ratio] 50.1 fl High 35.1-43.9 [facility] Hematocrit Auto (Bld) [Volum e fraction]Ordered By: Day Newberry on 07-21-2024 Hematocrit (Bld) [Volume fraction] 43.2 % 40-54 [facility] Hemoglobin measurementOrdere d By: Day Newberry on 07-21-2024 Hemoglobin (Bld) [Mass/Vol] 13.6 g/dL 13.0-16.5 [facility] Immature granulocytes/100 WB C Auto (Bld)Ordered By: Day Newberry on 07-21-2024 Immature granulocytes/100 WBC (Bld) 0.200 % 0.0-0.9 [facility] Comment on above: IG% - Immature Granu locytes (promyelocytes, myelocytes and metamyelocytes) > 1% indicates that a LEFT SHIFT is Present. Lymphocytes Auto (Unsp spec) [#/Vol]Ordered By: Day Newberry on 07-21-2024 Lymphocytes (Bld) [#/Vol] 1.13 10*3/uL 0.83-4.51 [facility] Lymphocytes/100 WBC Auto (Un sp spec)Ordered By: Day Newberry on 07-21-2024 Lymphocytes/100 WBC (Bld) 21.4 % 19-41 [facility] MCV (mean corpuscular volume ) determinationOrdered By: Day Newberry on 07-21-2024 MCV (RBC) [Entitic vol] 94.7 fL High 80-94 [facility] Mean corpuscular hemoglobin (MCH) determinationOrdered By: Day Newberry on 07-21-2024 MCH (RBC) [Entitic mass] 29.8 pg 27.0-32.0 [facility] Mean corpuscular hemoglobin concentration (MCHC) determinationOrdered By: Day Newberry on 07-21-2024 MCHC (RBC) [Mass/Vol] 31.5 g/dL Low 32-36 [facility] Mean platelet volume determi nationOrdered By: Day Newberry on 07-21-2024 Platelet mean volume (Bld) [Entitic vol] 10.6 fL 6.2-12.0 [facility] Monocyte percentageOrdered B y: Day Newberry on 07-21-2024 Monocytes/100 WBC (Bld) 11.3 % High 0-10 [facility] Neutrophil percentageOrdered By: Day Newberry on 07-21-2024 Neutrophils/100 WBC (Bld) 59.4 % 47-70 [facility] Nucleated red blood cell per centageOrdered By: Day Newberry on 07-21-2024 Nucleated RBC/100 WBC (Bld) [Ratio] 0 % 0-5 [facility] Platelet countOrdered By: St mechelle Newberry on 07-21-2024 Platelets (Bld) [#/Vol] 335 10*3/uL 150-450 [facility] RBC Auto (Bld) [#/Vol]Ordere d By: Day Newberry on 07-21-2024 RBC (Bld) [#/Vol] 4.56 10*6/uL Low 4.6-6.2 [facility] Serum or plasma albumin ambar urement (mass/volume)Ordered By: Day Newberry on 07-21-2024 Albumin [Mass/Vol] 3.4 g/dL 3.2-5.0 [facility] White blood cell (WBC) count Ordered By: Day Newberry on 07-21-2024 WBC (Bld) [#/Vol] 5.3 10*3/uL 4.4-11.0 [facility] Direct serum free thyroxine (FT4) measurementOrdered By: Juna Rodriguez on 07-15-2024 Free T4 [Mass/Vol] 1.14 ng/dL 0.76-1.46 [facility] Serum or plasma thyroid stim ulating hormone (TSH) measurement (units/volume)Ordered By: Juan Rodriguez on 07-15-2024 TSH Qn 1.840 uIU/mL 0.358-3.74 0 [facility] T4 Free Directon 07-15-2024 T4 FREE DIRECT 1.14 ng/dL Normal 0.76-1.46 [facility] Comment on above: Performed By: #### L 501.9520, L506.0400 ####[facility] [address] [facility] [place], [place], [id number] TSH QnOrdered By: Juan wyatt on 07-15-2024 Thyroid Stimulating Hormone (TSH) 1.840 uIU/mL 0.358-3.74 0 [facility] Thyroid Stim Hormone (TSH)on 07-15-2024 TSH 1.840 uIU/mL Normal 0.358-3.74 0 [facility] Comment on above: Performed By: #### L 501.9520, L506.0400 ####[facility] [address] [facility] [place], [place], [id number] CT KNEE W/O CONTRAST RIGHTon 07-08-2024 CT [...] findings are as detailed above. Interpreted by: Jessica River Preliminary Report By: Jessica River Electronically signed By Jessica River Dictated Date: 07/08/2024 9:26:53 AM Prelim Date: 07/08/2024 9:30:49 AM Sign Date: 07/08/2024 9:30:49 AM Ordering Provider: DAY NEWBERRY Normal [facility] .Auto Diffon 07-07-2024 Basophil, Absolute 0.0 10 3/mcL Normal 0.0-0.2 [facility] Comment on above: Performed By: #### A PATRICIA, ADIFF, ABOGEL, ABSGEL, BMP, CBC, GFR, ALB #### [facility] [address] [place], [place] [address] Basophils/100 WBC (Bld) 0.7 % Normal 0.0-2.5 [facility] Comment on above: Performed By: #### A PATRICIA, ADIFF, ABOGEL, ABSGEL, BMP, CBC, GFR, ALB #### [address] [address] Eosinophil, Absolute 0.3 10 3/mcL Normal 0.0-0.7 [facility] Comment on above: Performed By: #### A PATRICIA, ADIFF, ABOGEL, ABSGEL, BMP, CBC, GFR, ALB #### [address] [address] Eosinophils/100 WBC (Bld) 4.8 % Normal 0.0-7.0 [facility] Comment on above: Performed By: #### A PATRICIA, ADIFF, ABOGEL, ABSGEL, BMP, CBC, GFR, ALB #### [address] [address] Lymphocyte, Absolute 1.0 10 3/mcL Normal 0.9-4.3 [facility] Comment on above: Performed By: #### A PATRICIA, ADIFF, ABOGEL, ABSGEL, BMP, CBC, GFR, ALB #### [address] [address] Lymphocytes/100 WBC (Bld) 18.0 % Low 20.0-40.0 [facility] Comment on above: Performed By: #### A PATRICIA, ADIFF, ABOGEL, ABSGEL, BMP, CBC, GFR, ALB #### [address] [address] Monocyte, Absolute 0.7 10 3/mcL Normal 0.1-1.4 [facility] Comment on above: Performed By: #### A PATRICIA, ADIFF, ABOGEL, ABSGEL, BMP, CBC, GFR, ALB #### [address] [address] Monocytes/100 WBC (Bld) 11.6 % Normal 2.0-13.0 [facility] Comment on above: Performed By: #### A PATRICIA, ADIFF, ABOGEL, ABSGEL, BMP, CBC, GFR, ALB #### [address] [address] Neutrophils/100 WBC (Bld) 64.9 % Normal 50.0-75.0 [facility] Comment on above: Performed By: #### A PATRICIA, ADIFF, ABOGEL, ABSGEL, BMP, CBC, GFR, ALB #### [address] [address] .GFRon 07-07-2024 Estimated Glomerular Filtration Rate 57 ml/min/1.73sqm Normal [facility] Comment on above: Result Comment: Stages of [...] ABOGEL, ABSGEL, BMP, CBC, GFR, ALB #### [address] [address] .NEUABSon 07-07-2024 Neutrophil, Absolute 3.7 10 3/mcL Normal 2.3-8.1 [facility] Comment on above: Performed By: #### A PATRICIA, ADIFF, ABOGEL, ABSGEL, BMP, CBC, GFR, ALB #### [address] [address] ABO/Rh (Gel)on 07-07-2024 ABO/Rh Interp Positive Invalid Interpretation Code [facility] Comment on above: Performed By: #### A PATRICIA, ADIFF, ABOGEL, ABSGEL, BMP, CBC, GFR, ALB #### [address] [address] ABS (Gel)on 07-07-2024 ABSC Interp (Gel) Negative Normal [facility] Comment on above: Performed By: #### A PATRICIA, ADIFF, ABOGEL, ABSGEL, BMP, CBC, GFR, ALB #### [address] [address] ALBon 07-07-2024 Albumin Level 3.2 G/dL Low 3.4-4.8 [facility] Comment on above: Performed By: #### A PATRICIA, ADIFF, ABOGEL, ABSGEL, BMP, CBC, GFR, ALB #### [address] [address] BMPon 07-07-2024 BUN/Creatinine Ratio 16 ratio Normal 7-27 [facility] Comment on above: Performed By: #### A PATRICIA, ADIFF, ABOGEL, ABSGEL, BMP, CBC, GFR, ALB #### [address] [address] Calcium [Mass/Vol] 9.2 mg/dL Normal 8.4-10.2 [facility] Comment on above: Performed By: #### A PATRICIA, ADIFF, ABOGEL, ABSGEL, BMP, CBC, GFR, ALB #### [address] [address] Chloride [Moles/Vol] 106 mmol/L Normal 98-107 [facility] Comment on above: Performed By: #### A PATRICIA, ADIFF, ABOGEL, ABSGEL, BMP, CBC, GFR, ALB #### [address] [address] CO2 [Moles/Vol] 28 mmol/L Normal 23-31 [facility] Comment on above: Performed By: #### A PATRICIA, ADIFF, ABOGEL, ABSGEL, BMP, CBC, GFR, ALB #### [address] [address] Creatinine [Mass/Vol] 1.27 mg/dL Normal 0.70-1.30 [facility] Comment on above: Result Comment: Test ing performed on Siemens Dimension EXL analyzer using a modified kinetic Ashley technique. Performed By: #### A PATRICIA, ADIFF, ABOGEL, ABSGEL, BMP, CBC, GFR, ALB #### [address] [address] Electrolyte Balance 7.0 mEq/L Normal 4.0-15.0 [facility] Comment on above: Performed By: #### A PATRICIA, ADIFF, ABOGEL, ABSGEL, BMP, CBC, GFR, ALB #### [address] [address] Glucose [Mass/Vol] 109 mg/dL Normal 83-110 [facility] Comment on above: Performed By: #### A PATRICIA, ADIFF, ABOGEL, ABSGEL, BMP, CBC, GFR, ALB #### [address] [address] Potassium [Moles/Vol] 4.2 mmol/L Normal 3.5-5.1 [facility] Comment on above: Performed By: #### A PATRICIA, ADIFF, ABOGEL, ABSGEL, BMP, CBC, GFR, ALB #### [address] [address] Sodium [Moles/Vol] 141 mmol/L Normal 136-145 [facility] Comment on above: Performed By: #### A PATRICIA, ADIFF, ABOGEL, ABSGEL, BMP, CBC, GFR, ALB #### [address] [address] Urea nitrogen [Mass/Vol] 20 mg/dL High 7-18 [facility] Comment on above: Performed By: #### A PATRICIA, ADIFF, ABOGEL, ABSGEL, BMP, CBC, GFR, ALB #### [address] [address] CBCon 07-07-2024 Erythrocyte distribution width (RBC) [Ratio] 16.2 % High 11.5-15.5 [facility] Comment on above: Order Comment: Pre-A dmission Testing Performed By: #### A PATRICIA, ADIFF, ABOGEL, ABSGEL, BMP, CBC, GFR, ALB #### [address] [address] Hematocrit (Bld) [Volume fraction] 40.2 % Normal 40.0-52.0 [facility] Comment on above: Order Comment: Pre-A dmission Testing Performed By: #### A PATRICIA, ADIFF, ABOGEL, ABSGEL, BMP, CBC, GFR, ALB #### [address] [address] Hgb 13.4 G/dL Normal 13.0-17.5 [facility] Comment on above: Order Comment: Pre-A dmission Testing Performed By: #### A PATRICIA, ADIFF, ABOGEL, ABSGEL, BMP, CBC, GFR, ALB #### [address] [address] MCH (RBC) [Entitic mass] 30.9 pg Normal 27.0-33.0 [facility] Comment on above: Order Comment: Pre-A dmission Testing Performed By: #### A PATRICIA, ADIFF, ABOGEL, ABSGEL, BMP, CBC, GFR, ALB #### [address] [address] MCHC 33.3 G/dL Normal 32.0-36.0 [facility] Comment on above: Order Comment: Pre-A dmission Testing Performed By: #### A PATRICIA, ADIFF, ABOGEL, ABSGEL, BMP, CBC, GFR, ALB #### [address] [address] MCV (RBC) [Entitic vol] 92.8 fL Normal 81.0-100.0 [facility] Comment on above: Order Comment: Pre-A dmission Testing Performed By: #### A PATRICIA, ADIFF, ABOGEL, ABSGEL, BMP, CBC, GFR, ALB #### [address] [address] Platelet 293 10 3/mcL Normal 150-450 [facility] Comment on above: Order Comment: Pre-A dmission Testing Performed By: #### A PATRICIA, ADIFF, ABOGEL, ABSGEL, BMP, CBC, GFR, ALB #### [address] [address] Platelet mean volume (Bld) [Entitic vol] 7.9 fL Normal 6.4-10.5 [facility] Comment on above: Order Comment: Pre-A dmission Testing Performed By: #### A PATRICIA, ADIFF, ABOGEL, ABSGEL, BMP, CBC, GFR, ALB #### [address] [place], [place] [address] RBC 4.33 10 6/mcL Low 4.50-6.00 [facility] Comment on above: Order Comment: Pre-A dmission Testing Performed By: #### A PATRICIA, ADIFF, ABOGEL, ABSGEL, BMP, CBC, GFR, ALB #### [address] [place], [place] [address] WBC 5.7 10 3/mcL Normal 4.5-10.8 [facility] Comment on above: Order Comment: Pre-A dmission Testing Performed By: #### A PATRICIA, ADIFF, ABOGEL, ABSGEL, BMP, CBC, GFR, ALB #### [address] [address] LABORATORYOrdered By: Eleanor Hall on 07-07-2024 ABO [...] Comment on above: Result Comment: [place] [id number] MRSA PCR Int MRSA DNA not detecte [...] MRSA (PCR) Not detected Normal Not Detected [facility] Comment on above: Result Comment: [place] [id number] Performed By: #### A HARITHA GOMEZ, ABOGEL, ABSGEL, BMP, CBC, GFR, ALB #### [address] [place], [place] [address] MRSA PCR Int Normal [facility] Comment on above: Result Comment: MRSA DNA [...] ABOGEL, ABSGEL, BMP, CBC, GFR, ALB #### [address] [place], [place] [address] Absolute neutrophil countOrd ered By: Jackie Ballard on 06-13-2024 Neutrophils (Bld) [#/Vol] 2.5 10*3/uL 2.0-7.7 [facility] Basophil percentageOrdered B y: Jackie Ballard on 06-13-2024 Basophils/100 WBC (Bld) 0.9 % 0-1 [facility] CBC W/Diff, Automatedon 06-01 Absolute Lymph 1.13 X10 3/uL Normal 0.83-4.51 [facility] Comment on above: Performed By: #### L 100.0100 ####[facility] [address] [place], [address] Absolute Neut 2.5 X10 3/uL Normal 2.0-7.7 [facility] Comment on above: Performed By: #### L 100.0100 ####[facility] [address] [place], [address] Basophils/100 WBC (Bld) 0.9 % Normal 0-1 [facility] Comment on above: Performed By: #### L 100.0100 ####[facility] [address] [place], [address] Eosinophils/100 WBC (Bld) 2.8 % Normal 0-5 [facility] Comment on above: Performed By: #### L 100.0100 ####[facility] [address] [place], [address] Erythrocyte distribution width (RBC) [Ratio] 16.0 % High 11.6-14.6 [facility] Comment on above: Performed By: #### L 100.0100 ####[facility] [address] [place], [address] Hematocrit (Bld) [Volume fraction] 36.4 % Low 40-54 [facility] Comment on above: Performed By: #### L 100.0100 ####[facility] [address] [place], [address] Hemoglobin (Bld) [Mass/Vol] 11.5 g/dL Low 13.0-16.5 [facility] Comment on above: Performed By: #### L 100.0100 ####[facility] [address] [place], [address] IG% 0.200 Normal 0.0-0.9 [facility] Comment on above: Result Comment: IG% - Immature Granulocytes (promyelocytes, myelocytes andmetamyelocytes) > 1% indicates that a LEFT SHIFT is Present. Performed By: #### L 100.0100 ####[facility] [address] [place], [address] Lymphocytes/100 WBC (Bld) 26.0 % Normal 19-41 [facility] Comment on above: Performed By: #### L 100.0100 ####[facility] [address] [place], [address] MCH (RBC) [Entitic mass] 31.0 pg Normal 27.0-32.0 [facility] Comment on above: Performed By: #### L 100.0100 ####[facility] [address] [place], [address] MCHC (RBC) [Mass/Vol] 31.6 g/dL Low 32-36 [facility] Comment on above: Performed By: #### L 100.0100 ####[facility] [address] [place], [address] MCV (RBC) [Entitic vol] 98.1 fL High 80-94 [facility] Comment on above: Performed By: #### L 100.0100 ####[facility] [address] [place], [address] Monocytes/100 WBC (Bld) 12.0 % High 0-10 [facility] Comment on above: Performed By: #### L 100.0100 ####[facility] [address] [place], [address] Neutrophils/100 WBC (Bld) 58.1 % Normal 47-70 [facility] Comment on above: Performed By: #### L 100.0100 ####[facility] [address] [place], [address] Nucleated RBC (Bld) [#/Vol] 0 10*3/uL Normal 0-5 [facility] Comment on above: Performed By: #### L 100.0100 ####[facility] [address] [place], [address] Platelet mean volume (Bld) [Entitic vol] 9.6 fL Normal 6.2-12.0 [facility] Comment on above: Performed By: #### L 100.0100 ####[facility] [address] [place], [address] Platelets (Bld) [#/Vol] 325 10*3/uL Normal 150-450 [facility] Comment on above: Performed By: #### L 100.0100 ####[facility] [address] [place], [address] RBC (Bld) [#/Vol] 3.71 10*6/uL Low 4.6-6.2 [facility] Comment on above: Performed By: #### L 100.0100 ####[facility] [address] [place], [address] RDW SD 57.6 fl High 35.1-43.9 [facility] Comment on above: Performed By: #### L 100.0100 ####[facility] [address] [place], [address] WBC (Bld) [#/Vol] 4.4 10*3/uL Normal 4.4-11.0 [facility] Comment on above: Performed By: #### L 100.0100 ####[facility] [address] [place], [address] Eosinophil percentageOrdered By: Jackie Ballard on 06-13-2024 Eosinophils/100 WBC (Bld) 2.8 % 0-5 [facility] Erythrocyte distribution wid th ratioOrdered By: Jackie Ballard on 06-13-2024 Erythrocyte distribution width (RBC) [Ratio] 16.0 % High 11.6-14.6 [facility] Erythrocyte distribution wid th standard deviationOrdered By: Jackie Ballard on 06-13-2024 Erythrocyte distribution width (RBC) [Entitic vol] 57.6 fL High 35.1-43.9 [facility] Hematocrit Auto (Bld) [Volum e fraction]Ordered By: Jackie Ballard on 06-13-2024 Hematocrit (Bld) [Volume fraction] 36.4 % Low 40-54 [facility] Hemoglobin measurementOrdere d By: Jackie Ballard on 06-13-2024 Hemoglobin (Bld) [Mass/Vol] 11.5 g/dL Low 13.0-16.5 [facility] Immature granulocytes/100 WB C Auto (Bld)Ordered By: Jackie Ballard on 06-13-2024 Immature granulocytes/100 WBC (Bld) 0.200 % 0.0-0.9 [facility] Comment on above: IG% - Immature Granu locytes (promyelocytes, myelocytes and metamyelocytes) > 1% indicates that a LEFT SHIFT is Present. Lymphocytes Auto (Unsp spec) [#/Vol]Ordered By: Jackie Ballard on 06-13-2024 Lymphocytes (Bld) [#/Vol] 1.13 10*3/uL 0.83-4.51 [facility] Lymphocytes/100 WBC Auto (Un sp spec)Ordered By: Jackie Ballard on 06-13-2024 Lymphocytes/100 WBC (Bld) 26.0 % 19-41 [facility] MCV (mean corpuscular volume ) determinationOrdered By: Jackie Ballard on 06-13-2024 MCV (RBC) [Entitic vol] 98.1 fL High 80-94 [facility] Mean corpuscular hemoglobin (MCH) determinationOrdered By: Jackei Ballard on 06-13-2024 MCH (RBC) [Entitic mass] 31.0 pg 27.0-32.0 [facility] Mean corpuscular hemoglobin concentration (MCHC) determinationOrdered By: Jackie Ballard on 06-13-2024 MCHC (RBC) [Mass/Vol] 31.6 g/dL Low 32-36 [facility] Mean platelet volume determi nationOrdered By: Jackie Ballard on 06-13-2024 Platelet mean volume (Bld) [Entitic vol] 9.6 fL 6.2-12.0 [facility] Monocyte percentageOrdered B y: Jackie Ballard on 06-13-2024 Monocytes/100 WBC (Bld) 12.0 % High 0-10 [facility] Neutrophil percentageOrdered By: Jackie Ballard on 06-13-2024 Neutrophils/100 WBC (Bld) 58.1 % 47-70 [facility] Nucleated red blood cell per centageOrdered By: Jackie Ballard on 06-13-2024 Nucleated RBC/100 WBC (Bld) [Ratio] 0 % 0-5 [facility] Platelet countOrdered By: Maninder Ballard on 06-13-2024 Platelets (Bld) [#/Vol] 325 10*3/uL 150-450 [facility] RBC Auto (Bld) [#/Vol]Ordere d By: Jackie Ballard on 06-13-2024 RBC (Bld) [#/Vol] 3.71 10*6/uL Low 4.6-6.2 [facility] White blood cell (WBC) count Ordered By: Jackie Elio on 06-13-2024 WBC (Bld) [#/Vol] 4.4 10*3/uL 4.4-11.0 [facility] Venous Duplex US, Unilateral on 06-06-2024 Venous Duplex US, Unilateral Normal [facility] Knee 4 or More Viewson 06-03 Knee 4 or More Views Normal [facility] Vitamin B12on 05-19-2024 Cobalamin (Vitamin B12) [Mass/Vol] 271 pg/mL Normal 211-911 [facility] Comment on above: Performed By: #### L 503.6030, L503.6550, L100.0100, L503.0105 ####[facility] [address] [place], [place], [id number] Absolute neutrophil countOrd ered By: Jackie Chairezony on 05-18-2024 Neutrophils (Bld) [#/Vol] 3.1 10*3/uL 2.0-7.7 [facility] Basophil percentageOrdered B y: Jackie Elio on 05-18-2024 Basophils/100 WBC (Bld) 0.8 % 0-1 [facility] CBC W/Diff, Automatedon 05-01 Absolute Lymph 1.27 X10 3/uL Normal 0.83-4.51 [facility] Comment on above: Performed By: #### L 503.6030, L503.6550, L100.0100, L503.0105 ####[facility] [address] [place], [place], [address] Absolute Neut 3.1 X10 3/uL Normal 2.0-7.7 [facility] Comment on above: Performed By: #### L 503.6030, L503.6550, L100.0100, L503.0105 ####[facility] [address] [place], [address] Basophils/100 WBC (Bld) 0.8 % Normal 0-1 [facility] Comment on above: Performed By: #### L 503.6030, L503.6550, L100.0100, L503.0105 ####[facility] [address] [place], [address] Eosinophils/100 WBC (Bld) 3.1 % Normal 0-5 [facility] Comment on above: Performed By: #### L 503.6030, L503.6550, L100.0100, L503.0105 ####[facility] [address] [place], [address] Erythrocyte distribution width (RBC) [Ratio] 13.2 % Normal 11.6-14.6 [facility] Comment on above: Performed By: #### L 503.6030, L503.6550, L100.0100, L503.0105 ####[facility] [address] [place], [address] Hematocrit (Bld) [Volume fraction] 30.7 % Low 40-54 [facility] Comment on above: Performed By: #### L 503.6030, L503.6550, L100.0100, L503.0105 ####[facility] [address] [place], [address] Hemoglobin (Bld) [Mass/Vol] 9.5 g/dL Low 13.0-16.5 [facility] Comment on above: Performed By: #### L 503.6030, L503.6550, L100.0100, L503.0105 ####[facility] [address] [place], [address] IG% 0.600 Normal 0.0-0.9 [facility] Comment on above: Result Comment: IG% - Immature Granulocytes (promyelocytes, myelocytes andmetamyelocytes) > 1% indicates that a LEFT SHIFT is Present. Performed By: #### L 503.6030, L503.6550, L100.0100, L503.0105 ####[facility] [address] [place], [address] Lymphocytes/100 WBC (Bld) 24.2 % Normal 19-41 [facility] Comment on above: Performed By: #### L 503.6030, L503.6550, L100.0100, L503.0105 ####[facility] [address] [place], [address] MCH (RBC) [Entitic mass] 29.9 pg Normal 27.0-32.0 [facility] Comment on above: Performed By: #### L 503.6030, L503.6550, L100.0100, L503.0105 ####[facility] [address] [place], [address] MCHC (RBC) [Mass/Vol] 30.9 g/dL Low 32-36 [facility] Comment on above: Performed By: #### L 503.6030, L503.6550, L100.0100, L503.0105 ####[facility] [address] [place], [address] MCV (RBC) [Entitic vol] 96.5 fL High 80-94 [facility] Comment on above: Performed By: #### L 503.6030, L503.6550, L100.0100, L503.0105 ####[facility] [address] [place], [address] Monocytes/100 WBC (Bld) 12.6 % High 0-10 [facility] Comment on above: Performed By: #### L 503.6030, L503.6550, L100.0100, L503.0105 ####[facility] [address] [place], [address] Neutrophils/100 WBC (Bld) 58.7 % Normal 47-70 [facility] Comment on above: Performed By: #### L 503.6030, L503.6550, L100.0100, L503.0105 ####[facility] [address] [place], [address] Nucleated RBC (Bld) [#/Vol] 0 10*3/uL Normal 0-5 [facility] Comment on above: Performed By: #### L 503.6030, L503.6550, L100.0100, L503.0105 ####[facility] [address] [place], [address] Platelet mean volume (Bld) [Entitic vol] 9.4 fL Normal 6.2-12.0 [facility] Comment on above: Performed By: #### L 503.6030, L503.6550, L100.0100, L503.0105 ####[facility] [address] [place], [address] Platelets (Bld) [#/Vol] 381 10*3/uL Normal 150-450 [facility] Comment on above: Performed By: #### L 503.6030, L503.6550, L100.0100, L503.0105 ####[facility] [address] [place], [address] RBC (Bld) [#/Vol] 3.18 10*6/uL Low 4.6-6.2 [facility] Comment on above: Performed By: #### L 503.6030, L503.6550, L100.0100, L503.0105 ####[facility] [address] [place], [address] RDW SD 46.8 fl High 35.1-43.9 [facility] Comment on above: Performed By: #### L 503.6030, L503.6550, L100.0100, L503.0105 ####[facility] [address] [place], [address] WBC (Bld) [#/Vol] 5.2 10*3/uL Normal 4.4-11.0 [facility] Comment on above: Performed By: #### L 503.6030, L503.6550, L100.0100, L503.0105 ####[facility] [address] [place], [address] Eosinophil percentageOrdered By: Jackie Ballard on 05-18-2024 Eosinophils/100 WBC (Bld) 3.1 % 0-5 [facility] Erythrocyte distribution wid th ratioOrdered By: Jackie Ballard on 05-18-2024 Erythrocyte distribution width (RBC) [Ratio] 13.2 % 11.6-14.6 [facility] Erythrocyte distribution wid th standard deviationOrdered By: Jackie Ballard on 05-18-2024 Erythrocyte distribution width (RBC) [Entitic vol] 46.8 fL High 35.1-43.9 [facility] Ferritinon 05-18-2024 Ferritin [Mass/Vol] 21 ng/mL Low 26-388 [facility] Comment on above: Performed By: #### L 503.6030, L503.6550, L100.0100, L503.0105 ####[facility] [address] [place], [address] Ferritin measurementOrdered By: Jackie Ballard on 05-18-2024 Ferritin [Mass/Vol] 21 ng/mL Low 26-388 [facility] Gastroenterology Visit Repor ton 05-18-2024 Gastroenterology Visit Report Normal [facility] Hematocrit Auto (Bld) [Volum e fraction]Ordered By: Jackie Ballard on 05-18-2024 Hematocrit (Bld) [Volume fraction] 30.7 % Low 40-54 [facility] Hemoglobin measurementOrdere d By: Jackie Ballard on 05-18-2024 Hemoglobin (Bld) [Mass/Vol] 9.5 g/dL Low 13.0-16.5 [facility] Immature granulocytes/100 WB C Auto (Bld)Ordered By: Jackie Ballard on 05-18-2024 Immature granulocytes/100 WBC (Bld) 0.600 % 0.0-0.9 [facility] Comment on above: IG% - Immature Granu locytes (promyelocytes, myelocytes and metamyelocytes) > 1% indicates that a LEFT SHIFT is Present. Iron (Unsp spec) [Mass/Mass] Ordered By: Jackie Ballard on 05-18-2024 Iron [Mass/Vol] 24 ug/dL Low 65-175 [facility] Iron saturation [Mass fracti on]Ordered By: Jackie Ballard on 05-18-2024 Iron Saturation 8.3 % Low 15.0-55.0 [facility] Iron+Iron Binding Capacityon 05-18-2024 Iron [Mass/Vol] 24 ug/dL Low 65-175 [facility] Comment on above: Performed By: #### L 503.6030, L503.6550, L100.0100, L503.0105 ####[facility] [address] [place], [address] IRON SATURATION 8.3 Low 15.0-55.0 [facility] Comment on above: Performed By: #### L 503.6030, L503.6550, L100.0100, L503.0105 ####[facility] [address] [place], [address] TIBC 289 ug/dL Normal 250-450 [facility] Comment on above: Performed By: #### L 503.6030, L503.6550, L100.0100, L503.0105 ####[facility] [address] [place], [address] Lymphocytes Auto (Unsp spec) [#/Vol]Ordered By: Jackie Ballard on 05-18-2024 Lymphocytes (Bld) [#/Vol] 1.27 10*3/uL 0.83-4.51 [facility] Lymphocytes/100 WBC Auto (Un sp spec)Ordered By: Jackie Ballard on 05-18-2024 Lymphocytes/100 WBC (Bld) 24.2 % 19-41 [facility] MCV (mean corpuscular volume ) determinationOrdered By: Jackie Ballard on 05-18-2024 MCV (RBC) [Entitic vol] 96.5 fL High 80-94 [facility] Mean corpuscular hemoglobin (MCH) determinationOrdered By: Jackie Ballard on 05-18-2024 MCH (RBC) [Entitic mass] 29.9 pg 27.0-32.0 [facility] Mean corpuscular hemoglobin concentration (MCHC) determinationOrdered By: Jackie Ballard on 05-18-2024 MCHC (RBC) [Mass/Vol] 30.9 g/dL Low 32-36 [facility] Mean platelet volume determi nationOrdered By: Jackie Ballard on 05-18-2024 Platelet mean volume (Bld) [Entitic vol] 9.4 fL 6.2-12.0 [facility] Monocyte percentageOrdered B y: Jackie Ballard on 05-18-2024 Monocytes/100 WBC (Bld) 12.6 % High 0-10 [facility] Neutrophil percentageOrdered By: Jackie Ballard on 05-18-2024 Neutrophils/100 WBC (Bld) 58.7 % 47-70 [facility] Nucleated red blood cell per centageOrdered By: Jackie Ballard on 05-18-2024 Nucleated RBC/100 WBC (Bld) [Ratio] 0 % 0-5 [facility] Platelet countOrdered By: Maninder Ballard on 05-18-2024 Platelets (Bld) [#/Vol] 381 10*3/uL 150-450 [facility] RBC Auto (Bld) [#/Vol]Ordere d By: Jackie Ballard on 05-18-2024 RBC (Bld) [#/Vol] 3.18 10*6/uL Low 4.6-6.2 [facility] TIBCOrdered By: Jackie conde on 05-18-2024 Total Iron Binding Capacity 289 ug/dL 250-450 [facility] Vitamin B12 measurementOrder ed By: Jackie Ballard on 05-18-2024 Cobalamin (Vitamin B12) [Mass/Vol] 271 pg/mL 211-911 [facility] White blood cell (WBC) count Ordered By: Jackie Ballard on 05-18-2024 WBC (Bld) [#/Vol] 5.2 10*3/uL 4.4-11.0 [facility] Absolute neutrophil countOrd ered By: Juan Rodriguez on 05-10-2024 Neutrophils (Bld) [#/Vol] 4.4 10*3/uL 2.0-7.7 [facility] Basophil percentageOrdered B y: Juan Rodriguez on 05-10-2024 Basophils/100 WBC (Bld) 0.6 % 0-1 [facility] CBC W/Diff, Automatedon 05-01-2023 Absolute Lymph 1.32 X10 3/uL Normal 0.83-4.51 [facility] Comment on above: Performed By: #### L 100.0100 ####[facility] [address] [place], [address] Absolute Neut 4.4 X10 3/uL Normal 2.0-7.7 [facility] Comment on above: Performed By: #### L 100.0100 ####[facility] [address] [place], [address] Basophils/100 WBC (Bld) 0.6 % Normal 0-1 [facility] Comment on above: Performed By: #### L 100.0100 ####[facility] [address] [place], [address] Eosinophils/100 WBC (Bld) 1.8 % Normal 0-5 [facility] Comment on above: Performed By: #### L 100.0100 ####[facility] [address] [place], [address] Erythrocyte distribution width (RBC) [Ratio] 13.6 % Normal 11.6-14.6 [facility] Comment on above: Performed By: #### L 100.0100 ####[facility] [address] [place], [address] Hematocrit (Bld) [Volume fraction] 27.9 % Low 40-54 [facility] Comment on above: Performed By: #### L 100.0100 ####[facility] [address] [place], [address] Hemoglobin (Bld) [Mass/Vol] 8.5 g/dL Low 13.0-16.5 [facility] Comment on above: Performed By: #### L 100.0100 ####[facility] [address] [place], [address] IG% 0.500 Normal 0.0-0.9 [facility] Comment on above: Result Comment: IG% - Immature Granulocytes (promyelocytes, myelocytes andmetamyelocytes) > 1% indicates that a LEFT SHIFT is Present. Performed By: #### L 100.0100 ####[facility] [address] [place], [address] Lymphocytes/100 WBC (Bld) 20.2 % Normal 19-41 [facility] Comment on above: Performed By: #### L 100.0100 ####[facility] [address] [place], [address] MCH (RBC) [Entitic mass] 30.1 pg Normal 27.0-32.0 [facility] Comment on above: Performed By: #### L 100.0100 ####[facility] [address] [place], [address] MCHC (RBC) [Mass/Vol] 30.5 g/dL Low 32-36 [facility] Comment on above: Performed By: #### L 100.0100 ####[facility] [address] [place], [address] MCV (RBC) [Entitic vol] 98.9 fL High 80-94 [facility] Comment on above: Performed By: #### L 100.0100 ####[facility] [address] [place], [address] Monocytes/100 WBC (Bld) 9.8 % Normal 0-10 [facility] Comment on above: Performed By: #### L 100.0100 ####[facility] [address] [place], [address] Neutrophils/100 WBC (Bld) 67.1 % Normal 47-70 [facility] Comment on above: Performed By: #### L 100.0100 ####[facility] [address] [place], [address] Nucleated RBC (Bld) [#/Vol] 0 10*3/uL Normal 0-5 [facility] Comment on above: Performed By: #### L 100.0100 ####[facility] [address] [place], [address] Platelet mean volume (Bld) [Entitic vol] 9.5 fL Normal 6.2-12.0 [facility] Comment on above: Performed By: #### L 100.0100 ####[facility] [address] [place], [address] Platelets (Bld) [#/Vol] 432 10*3/uL Normal 150-450 [facility] Comment on above: Performed By: #### L 100.0100 ####[facility] [address] [place], [address] RBC (Bld) [#/Vol] 2.82 10*6/uL Low 4.6-6.2 [facility] Comment on above: Performed By: #### L 100.0100 ####[facility] [address] [place], [address] RDW SD 49.1 fl High 35.1-43.9 [facility] Comment on above: Performed By: #### L 100.0100 ####[facility] [address] [place], [address] WBC (Bld) [#/Vol] 6.5 10*3/uL Normal 4.4-11.0 [facility] Comment on above: Performed By: #### L 100.0100 ####[facility] [address] [place], [address] Eosinophil percentageOrdered By: Juansammy Rodriguez on 05-10-2024 Eosinophils/100 WBC (Bld) 1.8 % 0-5 [facility] Erythrocyte distribution wid th ratioOrdered By: Firsthealthgar on 05-10-2024 Erythrocyte distribution width (RBC) [Ratio] 13.6 % 11.6-14.6 [facility] Erythrocyte distribution wid th standard deviationOrdered By: Firsthealthgar on 05-10-2024 Erythrocyte distribution width (RBC) [Entitic vol] 49.1 fL High 35.1-43.9 [facility] Hematocrit Auto (Bld) [Volum e fraction]Ordered By: Juan Negro on 05-10-2024 Hematocrit (Bld) [Volume fraction] 27.9 % Low 40-54 [facility] Hemoglobin measurementOrdere d By: First[facility]gar on 05-10-2024 Hemoglobin (Bld) [Mass/Vol] 8.5 g/dL Low 13.0-16.5 [facility] Immature granulocytes/100 WB C Auto (Bld)Ordered By: Juansammy Rodriguez on 05-10-2024 Immature granulocytes/100 WBC (Bld) 0.500 % 0.0-0.9 [facility] Comment on above: IG% - Immature Granu locytes (promyelocytes, myelocytes and metamyelocytes) > 1% indicates that a LEFT SHIFT is Present. Lymphocytes Auto (Unsp spec) [#/Vol]Ordered By: Juansammy Rodriguez on 05-10-2024 Lymphocytes (Bld) [#/Vol] 1.32 10*3/uL 0.83-4.51 [facility] Lymphocytes/100 WBC Auto (Un sp spec)Ordered By: Juan Rodriguez on 05-10-2024 Lymphocytes/100 WBC (Bld) 20.2 % 19-41 [facility] MCV (mean corpuscular volume ) determinationOrdered By: Juan Rodriguez on 05-10-2024 MCV (RBC) [Entitic vol] 98.9 fL High 80-94 [facility] Mean corpuscular hemoglobin (MCH) determinationOrdered By: Juan Rodriguez on 05-10-2024 MCH (RBC) [Entitic mass] 30.1 pg 27.0-32.0 [facility] Mean corpuscular hemoglobin concentration (MCHC) determinationOrdered By: Juan Rodriguez on 05-10-2024 MCHC (RBC) [Mass/Vol] 30.5 g/dL Low 32-36 [facility] Mean platelet volume determi nationOrdered By: Juan Rodriguez on 05-10-2024 Platelet mean volume (Bld) [Entitic vol] 9.5 fL 6.2-12.0 [facility] Monocyte percentageOrdered B y: Juan Rodriguez on 05-10-2024 Monocytes/100 WBC (Bld) 9.8 % 0-10 [facility] Neutrophil percentageOrdered By: Juan Rodriguez on 05-10-2024 Neutrophils/100 WBC (Bld) 67.1 % 47-70 [facility] Nucleated red blood cell per centageOrdered By: Juan Rodriguez on 05-10-2024 Nucleated RBC/100 WBC (Bld) [Ratio] 0 % 0-5 [facility] Platelet countOrdered By: Ra nicola Rodriguez on 05-10-2024 Platelets (Bld) [#/Vol] 432 10*3/uL 150-450 [facility] RBC Auto (Bld) [#/Vol]Ordere d By: Juan Rodriguez on 05-10-2024 RBC (Bld) [#/Vol] 2.82 10*6/uL Low 4.6-6.2 [facility] White blood cell (WBC) count Ordered By: Juan Rodriguez on 05-10-2024 WBC (Bld) [#/Vol] 6.5 10*3/uL 4.4-11.0 [facility] Basic Metabolic Profile (BMP )on 05-02-2024 BUN Normal 7-18 [facility] Comment on above: Result Comment: Canc elled via OM: Order cancelled - Patient discharged Performed By: #### L 100.0100, L500.2500 ####[facility] [address] [place], [address] BUN/CRE Normal 10-20 [facility] Comment on above: Result Comment: Canc elled via OM: Order cancelled - Patient discharged Performed By: #### L 100.0100, L500.2500 ####[facility] [address] [place], [address] CA,Total Normal 8.5-10.1 [facility] Comment on above: Result Comment: Canc elled via OM: Order cancelled - Patient discharged Performed By: #### L 100.0100, L500.2500 ####[facility] [address] [place], [address] CL Normal 98-107 [facility] Comment on above: Result Comment: Canc elled via OM: Order cancelled - Patient discharged Performed By: #### L 100.0100, L500.2500 ####[facility] [address] [place], [address] CO2 Normal 21.0-32.0 [facility] Comment on above: Result Comment: Canc elled via OM: Order cancelled - Patient discharged Performed By: #### L 100.0100, L500.2500 ####[facility] [address] [place], [address] CREAT,SERUM Normal 0.70-1.30 [facility] Comment on above: Result Comment: Canc elled via OM: Order cancelled - Patient discharged Performed By: #### L 100.0100, L500.2500 ####[facility] [address] [place], [address] EST GFR Normal >60 [facility] Comment on above: Result Comment: Canc elled via OM: Order cancelled - Patient discharged Performed By: #### L 100.0100, L500.2500 ####[facility] [address] [place], [address] EST GFR - AA Normal >60 [facility] Comment on above: Result Comment: Canc elled via OM: Order cancelled - Patient discharged Performed By: #### L 100.0100, L500.2500 ####[facility] [address] [place], [address] GAP Normal 5-15 [facility] Comment on above: Result Comment: Canc elled via OM: Order cancelled - Patient discharged Performed By: #### L 100.0100, L500.2500 ####[facility] [address] [place], [address] GLU Normal 74-106 [facility] Comment on above: Result Comment: Canc elled via OM: Order cancelled - Patient discharged Performed By: #### L 100.0100, L500.2500 ####[facility] [address] [place], [address] Potassium Normal 3.5-5.1 [facility] Comment on above: Result Comment: Canc elled via OM: Order cancelled - Patient discharged Performed By: #### L 100.0100, L500.2500 ####[facility] [address] [place], [address] Basic Metabolic Profile (BMP) Normal 136-145 [facility] Comment on above: Result Comment: Canc elled via OM: Order cancelled - Patient discharged Performed By: #### L 100.0100, L500.2500 ####[facility] [address] [place], [address] CBC W/Diff, Automatedon 12-0 Absolute Neut Normal 2.0-7.7 [facility] Comment on above: Result Comment: Canc elled via OM: Order cancelled - Patient discharged Performed By: #### L 100.0100, L500.2500 ####[facility] [address] [place], [address] HCT Normal 40-54 [facility] Comment on above: Result Comment: Canc elled via OM: Order cancelled - Patient discharged Performed By: #### L 100.0100, L500.2500 ####[facility] [address] [place], [address] HGB Normal 13.0-16.5 [facility] Comment on above: Result Comment: Canc elled via OM: Order cancelled - Patient discharged Performed By: #### L 100.0100, L500.2500 ####[facility] [address] [place], [address] MCH Normal 27.0-32.0 [facility] Comment on above: Result Comment: Canc elled via OM: Order cancelled - Patient discharged Performed By: #### L 100.0100, L500.2500 ####[facility] [address] [place], [address] MCHC Normal 32-36 [facility] Comment on above: Result Comment: Canc elled via OM: Order cancelled - Patient discharged Performed By: #### L 100.0100, L500.2500 ####[facility] [address] [place], [address] MCV Normal 80-94 [facility] Comment on above: Result Comment: Canc elled via OM: Order cancelled - Patient discharged Performed By: #### L 100.0100, L500.2500 ####[facility] [address] [place], [address] NEUT% Normal 47-70 [facility] Comment on above: Result Comment: Canc elled via OM: Order cancelled - Patient discharged Performed By: #### L 100.0100, L500.2500 ####[facility] [address] [place], [address] PLT Normal 150-450 [facility] Comment on above: Result Comment: Canc elled via OM: Order cancelled - Patient discharged Performed By: #### L 100.0100, L500.2500 ####[facility] [address] [place], [address] RBC Normal 4.6-6.2 [facility] Comment on above: Result Comment: Canc elled via OM: Order cancelled - Patient discharged Performed By: #### L 100.0100, L500.2500 ####[facility] [address] [place], [address] RDW CV Normal 11.6-14.6 [facility] Comment on above: Result Comment: Canc elled via OM: Order cancelled - Patient discharged Performed By: #### L 100.0100, L500.2500 ####[facility] [address] [place], [address] RDW SD Normal 35.1-43.9 [facility] Comment on above: Result Comment: Canc elled via OM: Order cancelled - Patient discharged Performed By: #### L 100.0100, L500.2500 ####[facility] [address] [place], [address] WBC Normal 4.4-11.0 [facility] Comment on above: Result Comment: Canc elled via OM: Order cancelled - Patient discharged Performed By: #### L 100.0100, L500.2500 ####[facility] [address] [place], [address] Basic Metabolic Profile (BMP )on 05-01-2024 BUN Normal 7-18 [facility] Comment on above: Result Comment: Canc elled via OM: Order cancelled - Patient discharged Performed By: #### L 100.0100, L500.2500 ####[facility] [address] [place], [address] BUN/CRE Normal 10-20 [facility] Comment on above: Result Comment: Canc elled via OM: Order cancelled - Patient discharged Performed By: #### L 100.0100, L500.2500 ####[facility] [address] [place], [address] CA,Total Normal 8.5-10.1 [facility] Comment on above: Result Comment: Canc elled via OM: Order cancelled - Patient discharged Performed By: #### L 100.0100, L500.2500 ####[facility] [address] [place], [address] CL Normal 98-107 [facility] Comment on above: Result Comment: Canc elled via OM: Order cancelled - Patient discharged Performed By: #### L 100.0100, L500.2500 ####[facility] [address] [place], [address] CO2 Normal 21.0-32.0 [facility] Comment on above: Result Comment: Canc elled via OM: Order cancelled - Patient discharged Performed By: #### L 100.0100, L500.2500 ####[facility] [address] [place], [address] CREAT,SERUM Normal 0.70-1.30 [facility] Comment on above: Result Comment: Canc elled via OM: Order cancelled - Patient discharged Performed By: #### L 100.0100, L500.2500 ####[facility] [address] [place], [address] EST GFR Normal >60 [facility] Comment on above: Result Comment: Canc elled via OM: Order cancelled - Patient discharged Performed By: #### L 100.0100, L500.2500 ####[facility] [address] [place] [facility], [address] EST GFR - AA Normal >60 [facility] Comment on above: Result Comment: Canc elled via OM: Order cancelled - Patient discharged Performed By: #### L 100.0100, L500.2500 ####[facility] [address] [place], [address] GAP Normal 5-15 [facility] Comment on above: Result Comment: Canc elled via OM: Order cancelled - Patient discharged Performed By: #### L 100.0100, L500.2500 ####[facility] [address] [place], [address] GLU Normal 74-106 [facility] Comment on above: Result Comment: Canc elled via OM: Order cancelled - Patient discharged Performed By: #### L 100.0100, L500.2500 ####[facility] [address] [place], [address] Potassium Normal 3.5-5.1 [facility] Comment on above: Result Comment: Canc elled via OM: Order cancelled - Patient discharged Performed By: #### L 100.0100, L500.2500 ####[facility] [address] [place], [address] Basic Metabolic Profile (BMP) Normal 136-145 [facility] Comment on above: Result Comment: Canc elled via OM: Order cancelled - Patient discharged Performed By: #### L 100.0100, L500.2500 ####[facility] [address] [place], [address] CBC W/Diff, Automatedon 12-0 Absolute Neut Normal 2.0-7.7 [facility] Comment on above: Result Comment: Canc elled via OM: Order cancelled - Patient discharged Performed By: #### L 100.0100, L500.2500 ####[facility] [address] [place], [address] HCT Normal 40-54 [facility] Comment on above: Result Comment: Canc elled via OM: Order cancelled - Patient discharged Performed By: #### L 100.0100, L500.2500 ####[facility] [address] [place], [address] HGB Normal 13.0-16.5 [facility] Comment on above: Result Comment: Canc elled via OM: Order cancelled - Patient discharged Performed By: #### L 100.0100, L500.2500 ####[facility] [address] [place], [address] MCH Normal 27.0-32.0 [facility] Comment on above: Result Comment: Canc elled via OM: Order cancelled - Patient discharged Performed By: #### L 100.0100, L500.2500 ####[facility] [address] [place], [address] MCHC Normal 32-36 [facility] Comment on above: Result Comment: Canc elled via OM: Order cancelled - Patient discharged Performed By: #### L 100.0100, L500.2500 ####[facility] [address] [place], [address] MCV Normal 80-94 [facility] Comment on above: Result Comment: Canc elled via OM: Order cancelled - Patient discharged Performed By: #### L 100.0100, L500.2500 ####[facility] [address] [place], [address] NEUT% Normal 47-70 [facility] Comment on above: Result Comment: Canc elled via OM: Order cancelled - Patient discharged Performed By: #### L 100.0100, L500.2500 ####[facility] [address] [place], [address] PLT Normal 150-450 [facility] Comment on above: Result Comment: Canc elled via OM: Order cancelled - Patient discharged Performed By: #### L 100.0100, L500.2500 ####[facility] [address] [place], [address] RBC Normal 4.6-6.2 [facility] Comment on above: Result Comment: Canc elled via OM: Order cancelled - Patient discharged Performed By: #### L 100.0100, L500.2500 ####[facility] [address] [place], [address] RDW CV Normal 11.6-14.6 [facility] Comment on above: Result Comment: Canc elled via OM: Order cancelled - Patient discharged Performed By: #### L 100.0100, L500.2500 ####[facility] [address] [place], [address] RDW SD Normal 35.1-43.9 [facility] Comment on above: Result Comment: Canc elled via OM: Order cancelled - Patient discharged Performed By: #### L 100.0100, L500.2500 ####[facility] [address] [place], [address] WBC Normal 4.4-11.0 [facility] Comment on above: Result Comment: Canc elled via OM: Order cancelled - Patient discharged Performed By: #### L 100.0100, L500.2500 ####[facility] [address] [place], [address] Basic Metabolic Profile (BMP )on 04-30-2024 BUN Normal 7-18 [facility] Comment on above: Result Comment: Canc elled via OM: Order cancelled - Patient discharged Performed By: #### L 500.2500, L100.0100 ####[facility] [address] [place], [address] BUN/CRE Normal 10-20 [facility] Comment on above: Result Comment: Canc elled via OM: Order cancelled - Patient discharged Performed By: #### L 500.2500, L100.0100 ####[facility] [address] [place], [address] CA,Total Normal 8.5-10.1 [facility] Comment on above: Result Comment: Canc elled via OM: Order cancelled - Patient discharged Performed By: #### L 500.2500, L100.0100 ####[facility] [address] [place], [address] CL Normal 98-107 [facility] Comment on above: Result Comment: Canc elled via OM: Order cancelled - Patient discharged Performed By: #### L 500.2500, L100.0100 ####[facility] [address] [place], [address] CO2 Normal 21.0-32.0 [facility] Comment on above: Result Comment: Canc elled via OM: Order cancelled - Patient discharged Performed By: #### L 500.2500, L100.0100 ####[facility] [address] [place], [address] CREAT,SERUM Normal 0.70-1.30 [facility] Comment on above: Result Comment: Canc elled via OM: Order cancelled - Patient discharged Performed By: #### L 500.2500, L100.0100 ####[facility] [address] [place], [address] EST GFR Normal >60 [facility] Comment on above: Result Comment: Canc elled via OM: Order cancelled - Patient discharged Performed By: #### L 500.2500, L100.0100 ####[facility] [address] [place], [address] EST GFR - AA Normal >60 [facility] Comment on above: Result Comment: Canc elled via OM: Order cancelled - Patient discharged Performed By: #### L 500.2500, L100.0100 ####[facility] [address] [place], [address] GAP Normal 5-15 [facility] Comment on above: Result Comment: Canc elled via OM: Order cancelled - Patient discharged Performed By: #### L 500.2500, L100.0100 ####[facility] [address] [place], [address] GLU Normal 74-106 [facility] Comment on above: Result Comment: Canc elled via OM: Order cancelled - Patient discharged Performed By: #### L 500.2500, L100.0100 ####[facility] [address] [place], [address] Potassium Normal 3.5-5.1 [facility] Comment on above: Result Comment: Canc elled via OM: Order cancelled - Patient discharged Performed By: #### L 500.2500, L100.0100 ####[facility] [address] [place], [address] Basic Metabolic Profile (BMP) Normal 136-145 [facility] Comment on above: Result Comment: Canc elled via OM: Order cancelled - Patient discharged Performed By: #### L 500.2500, L100.0100 ####[facility] [address] [place], [address] CBC W/Diff, Automatedon 11-3 0-2023 Absolute Neut Normal 2.0-7.7 [facility] Comment on above: Result Comment: Canc elled via OM: Order cancelled - Patient discharged Performed By: #### L 500.2500, L100.0100 ####[facility] [address] [place], [address] HCT Normal 40-54 [facility] Comment on above: Result Comment: Canc elled via OM: Order cancelled - Patient discharged Performed By: #### L 500.2500, L100.0100 ####[facility] [address] [place], [address] HGB Normal 13.0-16.5 [facility] Comment on above: Result Comment: Canc elled via OM: Order cancelled - Patient discharged Performed By: #### L 500.2500, L100.0100 ####[facility] [address] [place], [address] MCH Normal 27.0-32.0 [facility] Comment on above: Result Comment: Canc elled via OM: Order cancelled - Patient discharged Performed By: #### L 500.2500, L100.0100 ####[facility] [address] [place], [address] MCHC Normal 32-36 [facility] Comment on above: Result Comment: Canc elled via OM: Order cancelled - Patient discharged Performed By: #### L 500.2500, L100.0100 ####[facility] [address] [place], [address] MCV Normal 80-94 [facility] Comment on above: Result Comment: Canc elled via OM: Order cancelled - Patient discharged Performed By: #### L 500.2500, L100.0100 ####[facility] [address] [place], [address] NEUT% Normal 47-70 [facility] Comment on above: Result Comment: Canc elled via OM: Order cancelled - Patient discharged Performed By: #### L 500.2500, L100.0100 ####[facility] [address] [place], [address] PLT Normal 150-450 [facility] Comment on above: Result Comment: Canc elled via OM: Order cancelled - Patient discharged Performed By: #### L 500.2500, L100.0100 ####[facility] [address] [place], [address] RBC Normal 4.6-6.2 [facility] Comment on above: Result Comment: Canc elled via OM: Order cancelled - Patient discharged Performed By: #### L 500.2500, L100.0100 ####[facility] [address] [place], [address] RDW CV Normal 11.6-14.6 [facility] Comment on above: Result Comment: Canc elled via OM: Order cancelled - Patient discharged Performed By: #### L 500.2500, L100.0100 ####[facility] [address] [place], [address] RDW SD Normal 35.1-43.9 [facility] Comment on above: Result Comment: Canc elled via OM: Order cancelled - Patient discharged Performed By: #### L 500.2500, L100.0100 ####[facility] [address] [place], [address] WBC Normal 4.4-11.0 [facility] Comment on above: Result Comment: Canc elled via OM: Order cancelled - Patient discharged Performed By: #### L 500.2500, L100.0100 ####[facility] [address] [place], [address] Basic Metabolic Profile (BMP )on 04-29-2024 BUN Normal 7-18 [facility] Comment on above: Result Comment: Canc elled via OM: Order cancelled - Patient discharged Performed By: #### L 100.0100, L500.2500 ####[facility] [address] [place], [address] BUN/CRE Normal 10-20 [facility] Comment on above: Result Comment: Canc elled via OM: Order cancelled - Patient discharged Performed By: #### L 100.0100, L500.2500 ####[facility] [address] [place], [address] CA,Total Normal 8.5-10.1 [facility] Comment on above: Result Comment: Canc elled via OM: Order cancelled - Patient discharged Performed By: #### L 100.0100, L500.2500 ####[facility] [address] [place], [address] CL Normal 98-107 [facility] Comment on above: Result Comment: Canc elled via OM: Order cancelled - Patient discharged Performed By: #### L 100.0100, L500.2500 ####[facility] [address] [place], [address] CO2 Normal 21.0-32.0 [facility] Comment on above: Result Comment: Canc elled via OM: Order cancelled - Patient discharged Performed By: #### L 100.0100, L500.2500 ####[facility] [address] [place], [address] CREAT,SERUM Normal 0.70-1.30 [facility] Comment on above: Result Comment: Canc elled via OM: Order cancelled - Patient discharged Performed By: #### L 100.0100, L500.2500 ####[facility] [address] [place], [address] EST GFR Normal >60 [facility] Comment on above: Result Comment: Canc elled via OM: Order cancelled - Patient discharged Performed By: #### L 100.0100, L500.2500 ####[facility] [address] [place], [address] EST GFR - AA Normal >60 [facility] Comment on above: Result Comment: Canc elled via OM: Order cancelled - Patient discharged Performed By: #### L 100.0100, L500.2500 ####[facility] [address] [place], [address] GAP Normal 5-15 [facility] Comment on above: Result Comment: Canc elled via OM: Order cancelled - Patient discharged Performed By: #### L 100.0100, L500.2500 ####[facility] [address] [place], [address] GLU Normal 74-106 [facility] Comment on above: Result Comment: Canc elled via OM: Order cancelled - Patient discharged Performed By: #### L 100.0100, L500.2500 ####[facility] [address] [place], [address] Potassium Normal 3.5-5.1 [facility] Comment on above: Result Comment: Canc elled via OM: Order cancelled - Patient discharged Performed By: #### L 100.0100, L500.2500 ####[facility] [address] [place], [address] Basic Metabolic Profile (BMP) Normal 136-145 [facility] Comment on above: Result Comment: Canc elled via OM: Order cancelled - Patient discharged Performed By: #### L 100.0100, L500.2500 ####[facility] [address] [place], [address] CBC W/Diff, Automatedon 11-2 Absolute Neut Normal 2.0-7.7 [facility] Comment on above: Result Comment: Canc elled via OM: Order cancelled - Patient discharged Performed By: #### L 100.0100, L500.2500 ####[facility] [address] [place], [address] HCT Normal 40-54 [facility] Comment on above: Result Comment: Canc elled via OM: Order cancelled - Patient discharged Performed By: #### L 100.0100, L500.2500 ####[facility] [address] [place], [address] HGB Normal 13.0-16.5 [facility] Comment on above: Result Comment: Canc elled via OM: Order cancelled - Patient discharged Performed By: #### L 100.0100, L500.2500 ####[facility] [address] [place], [address] MCH Normal 27.0-32.0 [facility] Comment on above: Result Comment: Canc elled via OM: Order cancelled - Patient discharged Performed By: #### L 100.0100, L500.2500 ####[facility] [address] [place], [address] MCHC Normal 32-36 [facility] Comment on above: Result Comment: Canc elled via OM: Order cancelled - Patient discharged Performed By: #### L 100.0100, L500.2500 ####[facility] [address] [place], [address] MCV Normal 80-94 [facility] Comment on above: Result Comment: Canc elled via OM: Order cancelled - Patient discharged Performed By: #### L 100.0100, L500.2500 ####[facility] [address] [place], [address] NEUT% Normal 47-70 [facility] Comment on above: Result Comment: Canc elled via OM: Order cancelled - Patient discharged Performed By: #### L 100.0100, L500.2500 ####[facility] [address] [place], [address] PLT Normal 150-450 [facility] Comment on above: Result Comment: Canc elled via OM: Order cancelled - Patient discharged Performed By: #### L 100.0100, L500.2500 ####[facility] [address] [place], [address] RBC Normal 4.6-6.2 [facility] Comment on above: Result Comment: Canc elled via OM: Order cancelled - Patient discharged Performed By: #### L 100.0100, L500.2500 ####[facility] [address] [place], [address] RDW CV Normal 11.6-14.6 [facility] Comment on above: Result Comment: Canc elled via OM: Order cancelled - Patient discharged Performed By: #### L 100.0100, L500.2500 ####[facility] [address] [place], [address] RDW SD Normal 35.1-43.9 [facility] Comment on above: Result Comment: Canc elled via OM: Order cancelled - Patient discharged Performed By: #### L 100.0100, L500.2500 ####[facility] [address] [place], [address] WBC Normal 4.4-11.0 [facility] Comment on above: Result Comment: Canc elled via OM: Order cancelled - Patient discharged Performed By: #### L 100.0100, L500.2500 ####[facility] [address] [place], [address] Absolute neutrophil countOrd ered By: Joanna Sol on 04-28-2024 Neutrophils (Bld) [#/Vol] 6.0 10*3/uL 2.0-7.7 [facility] Basic Metabolic Profile (BMP )on 04-28-2024 BUN/CRE 22.5 RATIO High 10-20 [facility] Comment on above: Performed By: #### L 500.2500, L100.0100 ####[facility] [address] [place], [address] CA,Total 8.2 mg/dL Low 8.5-10.1 [facility] Comment on above: Performed By: #### L 500.2500, L100.0100 ####[facility] [address] [place], [address] Chloride [Moles/Vol] 115 mmol/L High 98-107 [facility] Comment on above: Performed By: #### L 500.2500, L100.0100 ####[facility] [address] [place], [address] CO2 [Moles/Vol] 23.0 mmol/L Normal 21.0-32.0 [facility] Comment on above: Performed By: #### L 500.2500, L100.0100 ####[facility] [address] [place], [address] Creatinine [Mass/Vol] 1.02 mg/dL Normal 0.70-1.30 [facility] Comment on above: Result Comment: The validity of the calculated GFR GFRAA in patients over70 years has not been determined. Clinical correlation isessential. Performed By: #### L 500.2500, L100.0100 ####[facility] [address] [place], [address] ECRCL 57.52 ml/min Normal [facility] Comment on above: Performed By: #### L 500.2500, L100.0100 ####[facility] [address] [place], [address] EST GFR - AA 90 mL/min Normal >60 [facility] Comment on above: Result Comment: Afri can [place] GFR Calc Performed By: #### L 500.2500, L100.0100 ####[facility] [address] [place], [address] GAP 5 Normal 5-15 [facility] Comment on above: Performed By: #### L 500.2500, L100.0100 ####[facility] [address] [place], [address] GFR/1.73 sq M.predicted among non-blacks MDRD (S/P/Bld) [Vol rate/Area] 74 mL/min/{1.73_m2} Normal >60 [facility] Comment on above: Result Comment: Non- GFR Calc Performed By: #### L 500.2500, L100.0100 ####[facility] [address] [place], [address] Glucose [Mass/Vol] 87 mg/dL Normal 74-106 [facility] Comment on above: Performed By: #### L 500.2500, L100.0100 ####[facility] [address] [place], [address] Potassium [Moles/Vol] 3.2 mmol/L Low 3.5-5.1 [facility] Comment on above: Performed By: #### L 500.2500, L100.0100 ####[facility] [address] [place], [address] Sodium [Moles/Vol] 144 mmol/L Normal 136-145 [facility] Comment on above: Performed By: #### L 500.2500, L100.0100 ####[facility] [address] [place], [address] Urea nitrogen [Mass/Vol] 23 mg/dL High 7-18 [facility] Comment on above: Performed By: #### L 500.2500, L100.0100 ####[facility] [address] [place], [address] Basophil percentageOrdered B y: Joannajorge a Sol on 04-28-2024 Basophils/100 WBC (Bld) 0.3 % 0-1 [facility] Blood urea nitrogen (BUN)/cr eatinine ratioOrdered By: Joannajorge a Sol on 04-28-2024 Urea nitrogen/Creatinine [Mass ratio] 22.5 mg/mg High 10-20 [facility] CBC W/Diff, Automatedon - Absolute Lymph 0.97 X10 3/uL Normal 0.83-4.51 [facility] Comment on above: Performed By: #### L 500.2500, L100.0100 ####[facility] [address] [place], [address] Absolute Neut 6.0 X10 3/uL Normal 2.0-7.7 [facility] Comment on above: Performed By: #### L 500.2500, L100.0100 ####[facility] [address] [place], [address] Basophils/100 WBC (Bld) 0.3 % Normal 0-1 [facility] Comment on above: Performed By: #### L 500.2500, L100.0100 ####[facility] [address] [place], [address] Eosinophils/100 WBC (Bld) 1.3 % Normal 0-5 [facility] Comment on above: Performed By: #### L 500.2500, L100.0100 ####[facility] [address] [place], [address] Erythrocyte distribution width (RBC) [Ratio] 13.2 % Normal 11.6-14.6 [facility] Comment on above: Performed By: #### L 500.2500, L100.0100 ####[facility] [address] [place], [address] Hematocrit (Bld) [Volume fraction] 23.2 % Low 40-54 [facility] Comment on above: Performed By: #### L 500.2500, L100.0100 ####[facility] [address] [place], [address] Hemoglobin (Bld) [Mass/Vol] 7.7 g/dL Low 13.0-16.5 [facility] Comment on above: Performed By: #### L 500.2500, L100.0100 ####[facility] [address] [place], [address] IG% 0.600 Normal 0.0-0.9 [facility] Comment on above: Result Comment: IG% - Immature Granulocytes (promyelocytes, myelocytes andmetamyelocytes) > 1% indicates that a LEFT SHIFT is Present. Performed By: #### L 500.2500, L100.0100 ####[facility] [address] [place], [address] Lymphocytes/100 WBC (Bld) 12.3 % Low 19-41 [facility] Comment on above: Performed By: #### L 500.2500, L100.0100 ####[facility] [address] [place], [address] MCH (RBC) [Entitic mass] 32.6 pg High 27.0-32.0 [facility] Comment on above: Performed By: #### L 500.2500, L100.0100 ####[facility] [address] [place], [address] MCHC (RBC) [Mass/Vol] 33.2 g/dL Normal 32-36 [facility] Comment on above: Performed By: #### L 500.2500, L100.0100 ####[facility] [address] [place], [address] MCV (RBC) [Entitic vol] 98.3 fL High 80-94 [facility] Comment on above: Performed By: #### L 500.2500, L100.0100 ####[facility] [address] [place], [address] Monocytes/100 WBC (Bld) 9.5 % Normal 0-10 [facility] Comment on above: Performed By: #### L 500.2500, L100.0100 ####[facility] [address] [place], [address] Neutrophils/100 WBC (Bld) 76.0 % High 47-70 [facility] Comment on above: Performed By: #### L 500.2500, L100.0100 ####[facility] [address] [place], [address] Nucleated RBC (Bld) [#/Vol] 0 10*3/uL Normal 0-5 [facility] Comment on above: Performed By: #### L 500.2500, L100.0100 ####[facility] [address] [place], [address] Platelet mean volume (Bld) [Entitic vol] 10.0 fL Normal 6.2-12.0 [facility] Comment on above: Performed By: #### L 500.2500, L100.0100 ####[facility] [address] [place], [address] Platelets (Bld) [#/Vol] 249 10*3/uL Normal 150-450 [facility] Comment on above: Performed By: #### L 500.2500, L100.0100 ####[facility] [address] [place], [address] RBC (Bld) [#/Vol] 2.36 10*6/uL Low 4.6-6.2 [facility] Comment on above: Performed By: #### L 500.2500, L100.0100 ####[facility] [address] [place], [address] RDW SD 44.6 fl High 35.1-43.9 [facility] Comment on above: Performed By: #### L 500.2500, L100.0100 ####[facility] [address] [place], [address] WBC (Bld) [#/Vol] 7.9 10*3/uL Normal 4.4-11.0 [facility] Comment on above: Performed By: #### L 500.2500, L100.0100 ####[facility] [address] [place], [address] Carbon dioxide measurementOr dered By: Joanna Sol on 04-28-2024 CO2 [Moles/Vol] 23.0 mmol/L 21.0-32.0 [facility] Chloride measurementOrdered By: Joanna Sol on 04-28-2024 Chloride [Moles/Vol] 115 mmol/L High 98-107 [facility] Discharge Instructionon 04-02 Discharge Instruction Normal [facility] Eosinophil percentageOrdered By: Joanna Sol on 04-28-2024 Eosinophils/100 WBC (Bld) 1.3 % 0-5 [facility] Erythrocyte distribution wid th ratioOrdered By: Joanna Sol on 04-28-2024 Erythrocyte distribution width (RBC) [Ratio] 13.2 % 11.6-14.6 [facility] Erythrocyte distribution wid th standard deviationOrdered By: Joanna Sol on 04-28-2024 Erythrocyte distribution width (RBC) [Entitic vol] 44.6 fL High 35.1-43.9 [facility] Estimated glomerular filtrat ion rate (GFR) AmericanOrdered By: Joanna Sol on 04-28-2024 Estimated GFR (MDRD) Amer 90 mL/min >60 [facility] Comment on above: GFR Calc Estimation of creatinine thalia aranceOrdered By: Joanna Sol on 04-28-2024 Estimated Creatinine Clearance Calc 57.52 ml/min [facility] Glomerular filtration rate ( GFR) estimationOrdered By: Joanna Sol on 04-28-2024 Estimated GFR (MDRD) Non-Af Amer 74 mL/min >60 [facility] Comment on above: Non- GFR Calc Glucose measurementOrdered B y: Joanna Sol on 04-28-2024 Glucose [Mass/Vol] 87 mg/dL 74-106 [facility] Hematocrit Auto (Bld) [Volum e fraction]Ordered By: Joanna Sol on 04-28-2024 Hematocrit (Bld) [Volume fraction] 23.2 % Low 40-54 [facility] Hemoglobin measurementOrdere d By: Joanna Sol on 04-28-2024 Hemoglobin (Bld) [Mass/Vol] 7.7 g/dL Low 13.0-16.5 [facility] Immature granulocytes/100 WB C Auto (Bld)Ordered By: Joanna Sol on 04-28-2024 Immature granulocytes/100 WBC (Bld) 0.600 % 0.0-0.9 [facility] Comment on above: IG% - Immature Granu locytes (promyelocytes, myelocytes and metamyelocytes) > 1% indicates that a LEFT SHIFT is Present. Lymphocytes Auto (Unsp spec) [#/Vol]Ordered By: Joanna Sol on 04-28-2024 Lymphocytes (Bld) [#/Vol] 0.97 10*3/uL 0.83-4.51 [facility] Lymphocytes/100 WBC Auto (Un sp spec)Ordered By: Joanna Sol on 04-28-2024 Lymphocytes/100 WBC (Bld) 12.3 % Low 19-41 [facility] MCV (mean corpuscular volume ) determinationOrdered By: Joanna Sol on 04-28-2024 MCV (RBC) [Entitic vol] 98.3 fL High 80-94 [facility] Mean corpuscular hemoglobin (MCH) determinationOrdered By: Joanna Sol on 04-28-2024 MCH (RBC) [Entitic mass] 32.6 pg High 27.0-32.0 [facility] Mean corpuscular hemoglobin concentration (MCHC) determinationOrdered By: Joanna Sol on 04-28-2024 MCHC (RBC) [Mass/Vol] 33.2 g/dL 32-36 [facility] Mean platelet volume determi nationOrdered By: Joanna Sol on 04-28-2024 Platelet mean volume (Bld) [Entitic vol] 10.0 fL 6.2-12.0 [facility] Monocyte percentageOrdered B y: Joanna Sol on 04-28-2024 Monocytes/100 WBC (Bld) 9.5 % 0-10 [facility] Neutrophil percentageOrdered By: Joanna Sol on 04-28-2024 Neutrophils/100 WBC (Bld) 76.0 % High 47-70 [facility] Nucleated red blood cell per centageOrdered By: Joanna Sol on 04-28-2024 Nucleated RBC/100 WBC (Bld) [Ratio] 0 % 0-5 [facility] Platelet countOrdered By: Na leandra Sol on 04-28-2024 Platelets (Bld) [#/Vol] 249 10*3/uL 150-450 [facility] Potassium measurementOrdered By: Joanna Sol on 04-28-2024 Potassium [Moles/Vol] 3.2 mmol/L Low 3.5-5.1 [facility] RBC Auto (Bld) [#/Vol]Ordere d By: Joanna Sol on 04-28-2024 RBC (Bld) [#/Vol] 2.36 10*6/uL Low 4.6-6.2 [facility] Serum anion gap measurementO rdered By: Joanna Sol on 04-28-2024 Anion gap [Moles/Vol] 5 mmol/L 5-15 [facility] Serum or plasma calcium ambar urement (mass/volume)Ordered By: Joanna Sol on 04-28-2024 Calcium [Mass/Vol] 8.2 mg/dL Low 8.5-10.1 [facility] Serum or plasma creatinine m easurement (mass/volume)Ordered By: Joanna Sol on 04-28-2024 Creatinine [Mass/Vol] 1.02 mg/dL 0.70-1.30 [facility] Comment on above: The validity of the calculated GFR & GFRAA in patients over 70 years has not been determined. Clinical correlation is essential. Serum or plasma urea nitroge n measurement (mass/volume)Ordered By: Joanna Sol on 04-28-2024 Urea nitrogen [Mass/Vol] 23 mg/dL High 7-18 [facility] Sodium levelOrdered By: Joanna Sol on 04-28-2024 Sodium [Moles/Vol] 144 mmol/L 136-145 [facility] White blood cell (WBC) count Ordered By: Joanna Sol on 04-28-2024 WBC (Bld) [#/Vol] 7.9 10*3/uL 4.4-11.0 [facility] Basic Metabolic Profile (BMP )on 04-27-2024 BUN/CRE 26.4 RATIO High 10-20 [facility] Comment on above: Performed By: #### L 100.0100, L500.2500 ####[facility] [address] [place], [place], [id number] CA,Total 8.2 mg/dL Low 8.5-10.1 [facility] Comment on above: Performed By: #### L 100.0100, L500.2500 ####[facility] [address] [place], [address] Chloride [Moles/Vol] 115 mmol/L High 98-107 [facility] Comment on above: Performed By: #### L 100.0100, L500.2500 ####[facility] [address] [place], [address] CO2 [Moles/Vol] 23.0 mmol/L Normal 21.0-32.0 [facility] Comment on above: Performed By: #### L 100.0100, L500.2500 ####[facility] [address] [place], [address] Creatinine [Mass/Vol] 1.06 mg/dL Normal 0.70-1.30 [facility] Comment on above: Result Comment: The validity of the calculated GFR GFRAA in patients over70 years has not been determined. Clinical correlation isessential. Performed By: #### L 100.0100, L500.2500 ####[facility] [address] [place], [address] ECRCL 55.35 ml/min Normal [facility] Comment on above: Performed By: #### L 100.0100, L500.2500 ####[facility] [address] [place], [address] EST GFR - AA 86 mL/min Normal >60 [facility] Comment on above: Result Comment: Afri can Mozambican GFR Calc Performed By: #### L 100.0100, L500.2500 ####[facility] [address] [place], [address] GAP 4 Low 5-15 [facility] Comment on above: Performed By: #### L 100.0100, L500.2500 ####[facility] [address] [place], [address] GFR/1.73 sq M.predicted among non-blacks MDRD (S/P/Bld) [Vol rate/Area] 71 mL/min/{1.73_m2} Normal >60 [facility] Comment on above: Result Comment: Non- GFR Calc Performed By: #### L 100.0100, L500.2500 ####[facility] [address] [place], [address] Glucose [Mass/Vol] 111 mg/dL High 74-106 [facility] Comment on above: Result Comment: Fast ing Glucose result from 100 to 125 mg/dLsuggests IMPAIRED HOMEOSTASIS per A.D.A. criteria. Performed By: #### L 100.0100, L500.2500 ####[facility] [address] [place], [address] Potassium [Moles/Vol] 3.5 mmol/L Normal 3.5-5.1 [facility] Comment on above: Performed By: #### L 100.0100, L500.2500 ####[facility] [address] [place], [address] Sodium [Moles/Vol] 143 mmol/L Normal 136-145 [facility] Comment on above: Performed By: #### L 100.0100, L500.2500 ####[facility] [address] [place], [address] Urea nitrogen [Mass/Vol] 28 mg/dL High 7-18 [facility] Comment on above: Performed By: #### L 100.0100, L500.2500 ####[facility] [address] [place], [address] CBC W/Diff, Automatedon 11-2 Absolute Lymph 0.87 X10 3/uL Normal 0.83-4.51 [facility] Comment on above: Performed By: #### L 100.0100, L500.2500 ####[facility] [address] [place], [address] Absolute Neut 8.2 X10 3/uL High 2.0-7.7 [facility] Comment on above: Performed By: #### L 100.0100, L500.2500 ####[facility] [address] [place], [address] Basophils/100 WBC (Bld) 0.5 % Normal 0-1 [facility] Comment on above: Performed By: #### L 100.0100, L500.2500 ####[facility] [address] [place], [address] Eosinophils/100 WBC (Bld) 0.4 % Normal 0-5 [facility] Comment on above: Performed By: #### L 100.0100, L500.2500 ####[facility] [address] [place], [address] Erythrocyte distribution width (RBC) [Ratio] 12.5 % Normal 11.6-14.6 [facility] Comment on above: Performed By: #### L 100.0100, L500.2500 ####[facility] [address] [place], [address] Hematocrit (Bld) [Volume fraction] 24.2 % Low 40-54 [facility] Comment on above: Performed By: #### L 100.0100, L500.2500 ####[facility] [address] [place], [address] Hemoglobin (Bld) [Mass/Vol] 8.0 g/dL Low 13.0-16.5 [facility] Comment on above: Performed By: #### L 100.0100, L500.2500 ####[facility] [address] [place], [address] IG% 0.600 Normal 0.0-0.9 [facility] Comment on above: Result Comment: IG% - Immature Granulocytes (promyelocytes, myelocytes andmetamyelocytes) > 1% indicates that a LEFT SHIFT is Present. Performed By: #### L 100.0100, L500.2500 ####[facility] [address] [place], [address] Lymphocytes/100 WBC (Bld) 8.6 % Low 19-41 [facility] Comment on above: Performed By: #### L 100.0100, L500.2500 ####[facility] [address] [place], [address] MCH (RBC) [Entitic mass] 32.9 pg High 27.0-32.0 [facility] Comment on above: Performed By: #### L 100.0100, L500.2500 ####[facility] [address] [place], [address] MCHC (RBC) [Mass/Vol] 33.1 g/dL Normal 32-36 [facility] Comment on above: Performed By: #### L 100.0100, L500.2500 ####[facility] [address] [place], [address] MCV (RBC) [Entitic vol] 99.6 fL High 80-94 [facility] Comment on above: Performed By: #### L 100.0100, L500.2500 ####[facility] [address] [place], [address] Monocytes/100 WBC (Bld) 8.4 % Normal 0-10 [facility] Comment on above: Performed By: #### L 100.0100, L500.2500 ####[facility] [address] [place], [address] Neutrophils/100 WBC (Bld) 81.5 % High 47-70 [facility] Comment on above: Performed By: #### L 100.0100, L500.2500 ####[facility] [address] [place], [address] Nucleated RBC (Bld) [#/Vol] 0 10*3/uL Normal 0-5 [facility] Comment on above: Performed By: #### L 100.0100, L500.2500 ####[facility] [address] [place], [address] Platelet mean volume (Bld) [Entitic vol] 10.0 fL Normal 6.2-12.0 [facility] Comment on above: Performed By: #### L 100.0100, L500.2500 ####[facility] [address] [place], [address] Platelets (Bld) [#/Vol] 240 10*3/uL Normal 150-450 [facility] Comment on above: Performed By: #### L 100.0100, L500.2500 ####[facility] [address] [place], [address] RBC (Bld) [#/Vol] 2.43 10*6/uL Low 4.6-6.2 [facility] Comment on above: Performed By: #### L 100.0100, L500.2500 ####[facility] [address] [place], [address] RDW SD 44.1 fl High 35.1-43.9 [facility] Comment on above: Performed By: #### L 100.0100, L500.2500 ####[facility] [address] [place], [address] WBC (Bld) [#/Vol] 10.1 10*3/uL Normal 4.4-11.0 [facility] Comment on above: Performed By: #### L 100.0100, L500.2500 ####[facility] [address] [place], [address] Colonoscopy Reporton 024 Colonoscopy Report Normal [facility] MR/POSTOP.ANEon 04-27-2024 MR/POSTOP.ANE Normal [facility] MR/[id number] 04-27-2024 MR/POSTOPAN2 Normal [facility] Surgery Specimen Level Atif 04-27-2024 Surgery Specimen Level IV Normal [facility] Comment on above: Performed By: #### P SUIV ####[facility] [address] [place], [address] Basic Metabolic Profile (BMP )on 04-26-2024 BUN/CRE 43.1 RATIO High 10-20 [facility] Comment on above: Performed By: #### L 100.0100, L501.9520, L500.2500 ####[facility] [address] [place], [address] CA,Total 7.9 mg/dL Low 8.5-10.1 [facility] Comment on above: Performed By: #### L 100.0100, L501.9520, L500.2500 ####[facility] [address] [place], [address] Chloride [Moles/Vol] 118 mmol/L High 98-107 [facility] Comment on above: Performed By: #### L 100.0100, L501.9520, L500.2500 ####[facility] [address] [place], [address] CO2 [Moles/Vol] 23.0 mmol/L Normal 21.0-32.0 [facility] Comment on above: Performed By: #### L 100.0100, L501.9520, L500.2500 ####[facility] [address] [place], [address] Creatinine [Mass/Vol] 1.02 mg/dL Normal 0.70-1.30 [facility] Comment on above: Result Comment: The validity of the calculated GFR GFRAA in patients over70 years has not been determined. Clinical correlation isessential. Performed By: #### L 100.0100, L501.9520, L500.2500 ####[facility] [address] [place], [address] ECRCL 57.52 ml/min Normal [facility] Comment on above: Performed By: #### L 100.0100, L501.9520, L500.2500 ####[facility] [address] [place], [address] EST GFR - AA 90 mL/min Normal >60 [facility] Comment on above: Result Comment: Afri can Mozambican GFR Calc Performed By: #### L 100.0100, L501.9520, L500.2500 ####[facility] [address] [place], [address] GAP 4 Low 5-15 [facility] Comment on above: Performed By: #### L 100.0100, L501.9520, L500.2500 ####[facility] [address] [place], [address] GFR/1.73 sq M.predicted among non-blacks MDRD (S/P/Bld) [Vol rate/Area] 74 mL/min/{1.73_m2} Normal >60 [facility] Comment on above: Result Comment: Non- GFR Calc Performed By: #### L 100.0100, L501.9520, L500.2500 ####[facility] [address] [place], [address] Glucose [Mass/Vol] 101 mg/dL Normal 74-106 [facility] Comment on above: Result Comment: Fast ing Glucose result from 100 to 125 mg/dLsuggests IMPAIRED HOMEOSTASIS per A.D.A. criteria. Performed By: #### L 100.0100, L501.9520, L500.2500 ####[facility] [address] [place], [address] Potassium [Moles/Vol] 3.9 mmol/L Normal 3.5-5.1 [facility] Comment on above: Performed By: #### L 100.0100, L501.9520, L500.2500 ####[facility] [address] [place], [address] Sodium [Moles/Vol] 145 mmol/L Normal 136-145 [facility] Comment on above: Performed By: #### L 100.0100, L501.9520, L500.2500 ####[facility] [address] [place], [address] Urea nitrogen [Mass/Vol] 44 mg/dL High 7-18 [facility] Comment on above: Performed By: #### L 100.0100, L501.9520, L500.2500 ####[facility] [address] [place], [address] CBC W/Diff, Automatedon 11-2 Absolute Lymph 1.16 X10 3/uL Normal 0.83-4.51 [facility] Comment on above: Performed By: #### L 100.0100, L501.9520, L500.2500 ####[facility] [address] [place], [address] Absolute Neut 3.0 X10 3/uL Normal 2.0-7.7 [facility] Comment on above: Performed By: #### L 100.0100, L501.9520, L500.2500 ####[facility] [address] [place], [address] Basophils/100 WBC (Bld) 0.6 % Normal 0-1 [facility] Comment on above: Performed By: #### L 100.0100, L501.9520, L500.2500 ####[facility] [address] [place], [address] Eosinophils/100 WBC (Bld) 2.4 % Normal 0-5 [facility] Comment on above: Performed By: #### L 100.0100, L501.9520, L500.2500 ####[facility] [address] [place], [address] Erythrocyte distribution width (RBC) [Ratio] 12.4 % Normal 11.6-14.6 [facility] Comment on above: Performed By: #### L 100.0100, L501.9520, L500.2500 ####[facility] [address] [place], [address] Hematocrit (Bld) [Volume fraction] 22.8 % Low 40-54 [facility] Comment on above: Performed By: #### L 100.0100, L501.9520, L500.2500 ####[facility] [address] [place], [address] Hemoglobin (Bld) [Mass/Vol] 7.2 g/dL Low 13.0-16.5 [facility] Comment on above: Performed By: #### L 100.0100, L501.9520, L500.2500 ####[facility] [address] [place], [address] IG% 0.400 Normal 0.0-0.9 [facility] Comment on above: Result Comment: IG% - Immature Granulocytes (promyelocytes, myelocytes andmetamyelocytes) > 1% indicates that a LEFT SHIFT is Present. Performed By: #### L 100.0100, L501.9520, L500.2500 ####[facility] [address] [place], [address] Lymphocytes/100 WBC (Bld) 23.6 % Normal 19-41 [facility] Comment on above: Performed By: #### L 100.0100, L501.9520, L500.2500 ####[facility] [address] [place], [address] MCH (RBC) [Entitic mass] 31.9 pg Normal 27.0-32.0 [facility] Comment on above: Performed By: #### L 100.0100, L501.9520, L500.2500 ####[facility] [address] [place], [address] MCHC (RBC) [Mass/Vol] 31.6 g/dL Low 32-36 [facility] Comment on above: Performed By: #### L 100.0100, L501.9520, L500.2500 ####[facility] [address] [place], [address] MCV (RBC) [Entitic vol] 100.9 fL High 80-94 [facility] Comment on above: Performed By: #### L 100.0100, L501.9520, L500.2500 ####[facility] [address] [place], [address] Monocytes/100 WBC (Bld) 11.2 % High 0-10 [facility] Comment on above: Performed By: #### L 100.0100, L501.9520, L500.2500 ####[facility] [address] [place], [address] Neutrophils/100 WBC (Bld) 61.8 % Normal 47-70 [facility] Comment on above: Performed By: #### L 100.0100, L501.9520, L500.2500 ####[facility] [address] [place], [address] Nucleated RBC (Bld) [#/Vol] 0 10*3/uL Normal 0-5 [facility] Comment on above: Performed By: #### L 100.0100, L501.9520, L500.2500 ####[facility] [address] [place], [address] Platelet mean volume (Bld) [Entitic vol] 9.9 fL Normal 6.2-12.0 [facility] Comment on above: Performed By: #### L 100.0100, L501.9520, L500.2500 ####[facility] [address] [place], [address] Platelets (Bld) [#/Vol] 209 10*3/uL Normal 150-450 [facility] Comment on above: Performed By: #### L 100.0100, L501.9520, L500.2500 ####[facility] [address] [place], [address] RBC (Bld) [#/Vol] 2.26 10*6/uL Low 4.6-6.2 [facility] Comment on above: Performed By: #### L 100.0100, L501.9520, L500.2500 ####[facility] [address] [place], [address] RDW SD 44.5 fl High 35.1-43.9 [facility] Comment on above: Performed By: #### L 100.0100, L501.9520, L500.2500 ####[facility] [address] [place], [address] WBC (Bld) [#/Vol] 4.9 10*3/uL Normal 4.4-11.0 [facility] Comment on above: Performed By: #### L 100.0100, L501.9520, L500.2500 ####[facility] [address] [place], [address] EGD Reporton 04-26-2024 EGD Report Normal [facility] International normalized rat io (INR) calculationOrdered By: Elian Maldonado on 04-26-2024 INR Coag (Bld) [Relative time] 1.3 {INR} [facility] MR/POSTOP.ANEon 04-26-2024 MR/POSTOP.ANE Normal [facility] MR/[id number] 04-26-2024 MR/POSTOPAN2 Normal [facility] Partial Thromboplast Timeon 04-26-2024 aPTT Coag (Bld) [Time] 29.4 s Normal 24.1-36.2 [facility] Comment on above: Performed By: #### L 300.4310, L300.3900 ####[facility] [address] [place], [address] Prothrombin Time w/INRon INR Coag (PPP) [Relative time] 1.3 {INR} Normal [facility] Comment on above: Performed By: #### L 300.4310, L300.3900 ####[facility] [address] [place], [address] PT Coag (PPP) [Time] 16.5 s High 11.7-14.9 [facility] Comment on above: Performed By: #### L 300.4310, L300.3900 ####[facility] [address] [place], [address] Prothrombin timeOrdered By: Elian Maldonado on 04-26-2024 PT Coag (PPP) [Time] 16.5 s High 11.7-14.9 [facility] TSH QnOrdered By: Elian Maldonado on 04-26-2024 Thyroid Stimulating Hormone (TSH) 5.340 uIU/mL High 0.358-3.74 0 [facility] Thyroid Stim Hormone (TSH)on 04-26-2024 TSH 5.340 uIU/mL High 0.358-3.74 0 [facility] Comment on above: Performed By: #### L 100.0100, L501.9520, L500.2500 ####[facility] [address] [place], [address] aPTT Coag (PPP) [Time]Ordere d By: Elian Maldonado on 04-26-2024 aPTT Coag (Bld) [Time] 29.4 s 24.1-36.2 [facility] 12 Lead EKGon 04-25-2024 12 Lead EKG Normal [facility] Albumin to globulin ratioOrd ered By: Butch Barcenas on 04-25-2024 Albumin/Globulin [Mass ratio] 1.3 {ratio} 0.9-2.4 [facility] Bilirubin, totalOrdered By: Butch Barcenas on 04-25-2024 Bilirubin [Mass/Vol] 0.90 mg/dL 0.20-1.00 [facility] Comment on above: For patients on eltr ombopag therapy, use of Dimension [place] TBIL is not recommended. CBC W/Diff, Automatedon 04-02 Absolute Lymph 2.03 X10 3/uL Normal 0.83-4.51 [facility] Comment on above: Performed By: #### L 500.4050, BTS, L501.4020, L100.0100 ####[facility] [address] [place], [address] Absolute Neut 5.5 X10 3/uL Normal 2.0-7.7 [facility] Comment on above: Performed By: #### L 500.4050, BTS, L501.4020, L100.0100 ####[facility] [address] [place], [address] Basophils/100 WBC (Bld) 0.7 % Normal 0-1 [facility] Comment on above: Performed By: #### L 500.4050, BTS, L501.4020, L100.0100 ####[facility] [address] [place], [address] Eosinophils/100 WBC (Bld) 0.8 % Normal 0-5 [facility] Comment on above: Performed By: #### L 500.4050, BTS, L501.4020, L100.0100 ####[facility] [address] [place], [address] Erythrocyte distribution width (RBC) [Ratio] 12.4 % Normal 11.6-14.6 [facility] Comment on above: Performed By: #### L 500.4050, BTS, L501.4020, L100.0100 ####[facility] [address] [place], [address] Hematocrit (Bld) [Volume fraction] 29.3 % Low 40-54 [facility] Comment on above: Performed By: #### L 500.4050, BTS, L501.4020, L100.0100 ####[facility] [address] [place], [address] Hemoglobin (Bld) [Mass/Vol] 9.5 g/dL Low 13.0-16.5 [facility] Comment on above: Performed By: #### L 500.4050, BTS, L501.4020, L100.0100 ####[facility] [address] [place], [address] IG% 0.600 Normal 0.0-0.9 [facility] Comment on above: Result Comment: IG% - Immature Granulocytes (promyelocytes, myelocytes andmetamyelocytes) > 1% indicates that a LEFT SHIFT is Present. Performed By: #### L 500.4050, BTS, L501.4020, L100.0100 ####[facility] [address] [place], [address] Lymphocytes/100 WBC (Bld) 23.8 % Normal 19-41 [facility] Comment on above: Performed By: #### L 500.4050, BTS, L501.4020, L100.0100 ####[facility] [address] [place], [address] MCH (RBC) [Entitic mass] 32.8 pg High 27.0-32.0 [facility] Comment on above: Performed By: #### L 500.4050, BTS, L501.4020, L100.0100 ####[facility] [address] [place], [address] MCHC (RBC) [Mass/Vol] 32.4 g/dL Normal 32-36 [facility] Comment on above: Performed By: #### L 500.4050, BTS, L501.4020, L100.0100 ####[facility] [address] [place], [address] MCV (RBC) [Entitic vol] 101.0 fL High 80-94 [facility] Comment on above: Performed By: #### L 500.4050, BTS, L501.4020, L100.0100 ####[facility] [address] [place], [address] Monocytes/100 WBC (Bld) 10.1 % High 0-10 [facility] Comment on above: Performed By: #### L 500.4050, BTS, L501.4020, L100.0100 ####[facility] [address] [place], [address] Neutrophils/100 WBC (Bld) 64.0 % Normal 47-70 [facility] Comment on above: Performed By: #### L 500.4050, BTS, L501.4020, L100.0100 ####[facility] [address] [place], [address] Nucleated RBC (Bld) [#/Vol] 0 10*3/uL Normal 0-5 [facility] Comment on above: Performed By: #### L 500.4050, BTS, L501.4020, L100.0100 ####[facility] [address] [place], [address] Platelet mean volume (Bld) [Entitic vol] 10.0 fL Normal 6.2-12.0 [facility] Comment on above: Performed By: #### L 500.4050, BTS, L501.4020, L100.0100 ####[facility] [address] [place], [address] Platelets (Bld) [#/Vol] 302 10*3/uL Normal 150-450 [facility] Comment on above: Performed By: #### L 500.4050, BTS, L501.4020, L100.0100 ####[facility] [address] [place], [address] RBC (Bld) [#/Vol] 2.90 10*6/uL Low 4.6-6.2 [facility] Comment on above: Performed By: #### L 500.4050, BTS, L501.4020, L100.0100 ####[facility] [address] [place], [address] RDW SD 44.7 fl High 35.1-43.9 [facility] Comment on above: Performed By: #### L 500.4050, BTS, L501.4020, L100.0100 ####[facility] [address] [place], [address] WBC (Bld) [#/Vol] 8.5 10*3/uL Normal 4.4-11.0 [facility] Comment on above: Performed By: #### L 500.4050, BTS, L501.4020, L100.0100 ####[facility] [address] [place], [address] Chest 1 View (Portable)on Chest 1 View (Portable) Normal [facility] Comprehensive Metabolic Prof ilon 04-25-2024 Albumin [Mass/Vol] 3.3 g/dL Normal 3.2-5.0 [facility] Comment on above: Order Comment: 'TROP ' Serial specimen #1, #2 or #3: 1 Performed By: #### L 500.4050, BTS, L501.4020, L100.0100 ####[facility] [address] [place], [address] Albumin/Globulin [Mass ratio] 1.3 {ratio} Normal 0.9-2.4 [facility] Comment on above: Order Comment: 'TROP ' Serial specimen #1, #2 or #3: 1 Performed By: #### L 500.4050, BTS, L501.4020, L100.0100 ####[facility] [address] [place], [address] ALK P 53 U/L Normal 45-117 [facility] Comment on above: Order Comment: 'TROP ' Serial specimen #1, #2 or #3: 1 Performed By: #### L 500.4050, BTS, L501.4020, L100.0100 ####[facility] [address] [place], [address] ALT [Catalytic activity/Vol] 11 U/L Low 16-61 [facility] Comment on above: Order Comment: 'TROP ' Serial specimen #1, #2 or #3: 1 Performed By: #### L 500.4050, BTS, L501.4020, L100.0100 ####[facility] [address] [place], [address] AST [Catalytic activity/Vol] 13 U/L Low 15-37 [facility] Comment on above: Order Comment: 'TROP ' Serial specimen #1, #2 or #3: 1 Performed By: #### L 500.4050, BTS, L501.4020, L100.0100 ####[facility] [address] [place], [address] Bilirubin [Mass/Vol] 0.90 mg/dL Normal 0.20-1.00 [facility] Comment on above: Order Comment: 'TROP ' Serial specimen #1, #2 or #3: 1 Result Comment: For patients on eltrombopag therapy, use of Dimension [place] TBIL is not recommended. Performed By: #### L 500.4050, BTS, L501.4020, L100.0100 ####[facility] [address] [place], [address] BUN/CRE 44.2 RATIO High 10-20 [facility] Comment on above: Order Comment: 'TROP ' Serial specimen #1, #2 or #3: 1 Performed By: #### L 500.4050, BTS, L501.4020, L100.0100 ####[facility] [address] [place], [address] CA,Total 8.9 mg/dL Normal 8.5-10.1 [facility] Comment on above: Order Comment: 'TROP ' Serial specimen #1, #2 or #3: 1 Performed By: #### L 500.4050, BTS, L501.4020, L100.0100 ####[facility] [address] [place], [address] Chloride [Moles/Vol] 114 mmol/L High 98-107 [facility] Comment on above: Order Comment: 'TROP ' Serial specimen #1, #2 or #3: 1 Performed By: #### L 500.4050, BTS, L501.4020, L100.0100 ####[facility] [address] [place], [address] CO2 [Moles/Vol] 24.0 mmol/L Normal 21.0-32.0 [facility] Comment on above: Order Comment: 'TROP ' Serial specimen #1, #2 or #3: 1 Performed By: #### L 500.4050, BTS, L501.4020, L100.0100 ####[facility] [address] [place], [address] Creatinine [Mass/Vol] 1.38 mg/dL High 0.70-1.30 [facility] Comment on above: Order Comment: 'TROP ' Serial specimen #1, #2 or #3: 1 Result Comment: The validity of the calculated GFR GFRAA in patients over70 years has not been determined. Clinical correlation isessential. Performed By: #### L 500.4050, BTS, L501.4020, L100.0100 ####[facility] [address] [place], [address] ECRCL 43.88 ml/min Normal [facility] Comment on above: Order Comment: 'TROP ' Serial specimen #1, #2 or #3: 1 Performed By: #### L 500.4050, BTS, L501.4020, L100.0100 ####[facility] [address] [place], [address] EST GFR - AA 64 mL/min Normal >60 [facility] Comment on above: Order Comment: 'TROP ' Serial specimen #1, #2 or #3: 1 Result Comment: Afri can [place] GFR Calc Performed By: #### L 500.4050, BTS, L501.4020, L100.0100 ####[facility] [address] [place], [address] GAP 7 Normal 5-15 [facility] Comment on above: Order Comment: 'TROP ' Serial specimen #1, #2 or #3: 1 Performed By: #### L 500.4050, BTS, L501.4020, L100.0100 ####[facility] [address] [place], [address] GFR/1.73 sq M.predicted among non-blacks MDRD (S/P/Bld) [Vol rate/Area] 53 mL/min/{1.73_m2} Low >60 [facility] Comment on above: Order Comment: 'TROP ' Serial specimen #1, #2 or #3: 1 Result Comment: Non- GFR Calc Performed By: #### L 500.4050, BTS, L501.4020, L100.0100 ####[facility] [address] [place], [address] Globulin (S) [Mass/Vol] 2.6 g/dL Normal 2.2-4.2 [facility] Comment on above: Order Comment: 'TROP ' Serial specimen #1, #2 or #3: 1 Performed By: #### L 500.4050, BTS, L501.4020, L100.0100 ####[facility] [address] [place], [address] Glucose [Mass/Vol] 142 mg/dL High 74-106 [facility] Comment on above: Order Comment: 'TROP ' Serial specimen #1, #2 or #3: 1 Result Comment: Fast ing Glucose result greater than or equal to 126 mg/dLsuggests DIABETES MELLITUS per A.D.A. criteria. Performed By: #### L 500.4050, BTS, L501.4020, L100.0100 ####[facility] [address] [place], [address] Potassium [Moles/Vol] 3.9 mmol/L Normal 3.5-5.1 [facility] Comment on above: Order Comment: 'TROP ' Serial specimen #1, #2 or #3: 1 Performed By: #### L 500.4050, BTS, L501.4020, L100.0100 ####[facility] [address] [place], [address] Sodium [Moles/Vol] 144 mmol/L Normal 136-145 [facility] Comment on above: Order Comment: 'TROP ' Serial specimen #1, #2 or #3: 1 Performed By: #### L 500.4050, BTS, L501.4020, L100.0100 ####[facility] [address] [place], [address] T PROT 5.9 g/dL Low 6.4-8.2 [facility] Comment on above: Order Comment: 'TROP ' Serial specimen #1, #2 or #3: 1 Performed By: #### L 500.4050, BTS, L501.4020, L100.0100 ####[facility] [address] [place], [address] Urea nitrogen [Mass/Vol] 61 mg/dL High 7-18 [facility] Comment on above: Order Comment: 'TROP ' Serial specimen #1, #2 or #3: 1 Performed By: #### L 500.4050, BTS, L501.4020, L100.0100 ####[facility] [address] [place], [address] Emergency Department Summary on 04-25-2024 Emergency Department Summary Normal [facility] L501.4020on 04-25-2024 TROPONIN-I HS 7 pg/mL Normal 3.0-78.0 [facility] Comment on above: Order Comment: 'TROP ' Serial specimen #1, #2 or #3: 1 Result Comment: Plea se Note: New Test Units and Gender Specific Reference Ranges. For more information see Policy Stat Procedure [place] High Sensitivity Troponin (TNIH) and attachments. Performed By: #### L 500.4050, BTS, L501.4020, L100.0100 ####[facility] [address] [place], [address] Laboratory - Chemistry and C hemistry - challengeOrdered By: Butch Barcenas on 04-25-2024 AST [Catalytic activity/Vol] 13 U/L Low 15-37 [facility] Lower GI hemoglobin IA Ql (S tl)Ordered By: Butch Barcenas on 04-25-2024 Stool Occult Blood (CHRIS) Positive Abnormal [facility] MR/CON.PCM.GIon 04-25-2024 MR/CON.PCM.GI Normal [facility] Serum globulin measurementOr dered By: Butch Barcenas on 04-25-2024 Globulin (S) [Mass/Vol] 2.6 g/dL 2.2-4.2 [facility] Serum or plasma alanine [place] otransferase (ALT) measurementOrdered By: Butch Barcenas on 04-25-2024 ALT [Catalytic activity/Vol] 11 U/L Low 16-61 [facility] Serum or plasma albumin ambar urement (mass/volume)Ordered By: Butch Barcenas on 04-25-2024 Albumin [Mass/Vol] 3.3 g/dL 3.2-5.0 [facility] Serum or plasma alkaline toni sphatase measurementOrdered By: Butch Barcenas on 04-25-2024 ALP [Catalytic activity/Vol] 53 U/L 45-117 [facility] Stool Occult Blood iFOBon STOB Positive Normal [facility] Comment on above: Performed By: #### M 100.7900 ####[facility] [address] [place], [address] Total proteinOrdered By: Aurora Barcenas on 04-25-2024 Protein [Mass/Vol] 5.9 g/dL Low 6.4-8.2 [facility] Troponin IOrdered By: Butch Barcenas on 04-25-2024 Troponin I High Sensitivity 7 pg/mL 3.0-78.0 [facility] Comment on above: Please Note: [place] t Units and Gender Specific Reference Ranges. For more information see Policy Stat Procedure [place] High Sensitivity Troponin (TNIH) and attachments. Type AND Screenon 04-25-2024 ABO and Rh group Nom (Bld) Blood group O Rh(D) positive Normal [facility] Comment on above: Order Comment: A Performed By: #### L 500.4050, BTS, L501.4020, L100.0100 ####[facility] [address] [place], [address] Renal Profileon 03-29-2024 Albumin [Mass/Vol] 3.2 g/dL Normal 3.2-5.0 [facility] Comment on above: Performed By: #### L 500.3600 ####[facility] [address] [place], [address] BUN/CRE 17.1 RATIO Normal - [facility] Comment on above: Performed By: #### L 500.3600 ####[facility] [address] [place], [address] CA,Total 9.0 mg/dL Normal 8.5-10.1 [facility] Comment on above: Performed By: #### L 500.3600 ####[facility] [address] [place], [address] Chloride [Moles/Vol] 112 mmol/L High 98-107 [facility] Comment on above: Performed By: #### L 500.3600 ####[facility] [address] [place], [address] CO2 [Moles/Vol] 26.0 mmol/L Normal 21.0-32.0 [facility] Comment on above: Performed By: #### L 500.3600 ####[facility] [address] [place], [address] Creatinine [Mass/Vol] 1.23 mg/dL Normal 0.70-1.30 [facility] Comment on above: Result Comment: The validity of the calculated GFR GFRAA in patients over70 years has not been determined. Clinical correlation isessential. Performed By: #### L 500.3600 ####[facility] [address] [place], [address] EST GFR - AA 73 mL/min Normal >60 [facility] Comment on above: Result Comment: Afri can [place] GFR Calc Performed By: #### L 500.3600 ####[facility] [address] [place], [address] GFR/1.73 sq M.predicted among non-blacks MDRD (S/P/Bld) [Vol rate/Area] 60 mL/min/{1.73_m2} Normal >60 [facility] Comment on above: Result Comment: Non- GFR Calc Performed By: #### L 500.3600 ####[facility] [address] [place], [address] Glucose [Mass/Vol] 94 mg/dL Normal 74-106 [facility] Comment on above: Performed By: #### L 500.3600 ####[facility] [address] [place], [address] Phosphate [Mass/Vol] 3.1 mg/dL Normal 2.5-4.9 [facility] Comment on above: Performed By: #### L 500.3600 ####[facility] [address] [place], [address] Potassium [Moles/Vol] 3.6 mmol/L Normal 3.5-5.1 [facility] Comment on above: Performed By: #### L 500.3600 ####[facility] [address] [place], [address] Sodium [Moles/Vol] 144 mmol/L Normal 136-145 [facility] Comment on above: Performed By: #### L 500.3600 ####[facility] [address] [place], [address] Urea nitrogen [Mass/Vol] 21 mg/dL High 7-18 [facility] Comment on above: Performed By: #### L 500.3600 ####[facility] [address] [place], [address] Echo Completeon 03-07-2024 Echo Complete Normal [facility] CBC W/Diff, Automatedon - Absolute Lymph 1.01 X10 3/uL Normal 0.83-4.51 [facility] Comment on above: Performed By: #### L 100.0100 ####[facility] [address] [place], [address] Absolute Neut 4.8 X10 3/uL Normal 2.0-7.7 [facility] Comment on above: Performed By: #### L 100.0100 ####[facility] [address] [place], [address] Basophils/100 WBC (Bld) 0.7 % Normal 0-1 [facility] Comment on above: Performed By: #### L 100.0100 ####[facility] [address] [place], [address] Eosinophils/100 WBC (Bld) 0.6 % Normal 0-5 [facility] Comment on above: Performed By: #### L 100.0100 ####[facility] [address] [place], [address] Erythrocyte distribution width (RBC) [Ratio] 13.0 % Normal 11.6-14.6 [facility] Comment on above: Performed By: #### L 100.0100 ####[facility] [address] [place], [address] Hematocrit (Bld) [Volume fraction] 41.1 % Normal 40-54 [facility] Comment on above: Performed By: #### L 100.0100 ####[facility] [address] [place], [address] Hemoglobin (Bld) [Mass/Vol] 13.3 g/dL Normal 13.0-16.5 [facility] Comment on above: Performed By: #### L 100.0100 ####[facility] [address] [place], [address] IG% 0.600 Normal 0.0-0.9 [facility] Comment on above: Result Comment: IG% - Immature Granulocytes (promyelocytes, myelocytes andmetamyelocytes) > 1% indicates that a LEFT SHIFT is Present. Performed By: #### L 100.0100 ####[facility] [address] [place], [address] Lymphocytes/100 WBC (Bld) 15.1 % Low 19-41 [facility] Comment on above: Performed By: #### L 100.0100 ####[facility] [address] [place], [address] MCH (RBC) [Entitic mass] 32.1 pg High 27.0-32.0 [facility] Comment on above: Performed By: #### L 100.0100 ####[facility] [address] [place], [address] MCHC (RBC) [Mass/Vol] 32.4 g/dL Normal 32-36 [facility] Comment on above: Performed By: #### L 100.0100 ####[facility] [address] [place], [address] MCV (RBC) [Entitic vol] 99.3 fL High 80-94 [facility] Comment on above: Performed By: #### L 100.0100 ####[facility] [address] [place], [address] Monocytes/100 WBC (Bld) 10.5 % High 0-10 [facility] Comment on above: Performed By: #### L 100.0100 ####[facility] [address] [place], [address] Neutrophils/100 WBC (Bld) 72.5 % High 47-70 [facility] Comment on above: Performed By: #### L 100.0100 ####[facility] [address] [place], [address] Nucleated RBC (Bld) [#/Vol] 0 10*3/uL Normal 0-5 [facility] Comment on above: Performed By: #### L 100.0100 ####[facility] [address] [place], [address] Platelet mean volume (Bld) [Entitic vol] 9.7 fL Normal 6.2-12.0 [facility] Comment on above: Performed By: #### L 100.0100 ####[facility] [address] [place], [address] Platelets (Bld) [#/Vol] 297 10*3/uL Normal 150-450 [facility] Comment on above: Performed By: #### L 100.0100 ####[facility] [address] [place], [address] RBC (Bld) [#/Vol] 4.14 10*6/uL Low 4.6-6.2 [facility] Comment on above: Performed By: #### L 100.0100 ####[facility] [address] [place], [address] RDW SD 47.0 fl High 35.1-43.9 [facility] Comment on above: Performed By: #### L 100.0100 ####[facility] [address] [place], [address] WBC (Bld) [#/Vol] 6.7 10*3/uL Normal 4.4-11.0 [facility] Comment on above: Performed By: #### L 100.0100 ####[facility] [address] [place], [address] MR/BMS.BVSon 02-18-2024 MR/BMS.BVS Normal [facility] Cardiology Visit Reporton Cardiology Visit Report Normal [facility] Office Visit Reporton 2023 Office Visit Report Normal [facility] Gastroenterology Visit Repor ton 01-21-2024 Gastroenterology Visit Report Normal [facility] Basic Metabolic Profile (BMP )on 01-20-2024 BUN/CRE 14.3 RATIO Normal 10-20 [facility] Comment on above: Performed By: #### L 500.2500 ####[facility] [address] [place], [address] CA,Total 9.3 mg/dL Normal 8.5-10.1 [facility] Comment on above: Performed By: #### L 500.2500 ####[facility] [address] [place], [address] Chloride [Moles/Vol] 111 mmol/L High 98-107 [facility] Comment on above: Performed By: #### L 500.2500 ####[facility] [address] [place], [address] CO2 [Moles/Vol] 26.0 mmol/L Normal 21.0-32.0 [facility] Comment on above: Performed By: #### L 500.2500 ####[facility] [address] [place], [address] Creatinine [Mass/Vol] 1.54 mg/dL High 0.70-1.30 [facility] Comment on above: Result Comment: The validity of the calculated GFR GFRAA in patients over70 years has not been determined. Clinical correlation isessential. Performed By: #### L 500.2500 ####[facility] [address] [place], [address] EST GFR - AA 56 mL/min Low >60 [facility] Comment on above: Result Comment: Afri can Mozambican GFR Calc Performed By: #### L 500.2500 ####[facility] [address] [place], [address] GAP 4 Low 5-15 [facility] Comment on above: Performed By: #### L 500.2500 ####[facility] [address] [place], [address] GFR/1.73 sq M.predicted among non-blacks MDRD (S/P/Bld) [Vol rate/Area] 46 mL/min/{1.73_m2} Low >60 [facility] Comment on above: Result Comment: Non- GFR Calc Performed By: #### L 500.2500 ####[facility] [address] [place], [address] Glucose [Mass/Vol] 92 mg/dL Normal 74-106 [facility] Comment on above: Performed By: #### L 500.2500 ####[facility] [address] [place], [address] Potassium [Moles/Vol] 4.4 mmol/L Normal 3.5-5.1 [facility] Comment on above: Performed By: #### L 500.2500 ####[facility] [address] [place], [address] Sodium [Moles/Vol] 141 mmol/L Normal 136-145 [facility] Comment on above: Performed By: #### L 500.2500 ####[facility] [address] [place], [address] Urea nitrogen [Mass/Vol] 22 mg/dL High 7-18 [facility] Comment on above: Performed By: #### L 500.2500 ####[facility] [address] [place], [address] Hemoglobinon 01-20-2024 Hemoglobin (Bld) [Mass/Vol] 13.1 g/dL Normal 13.0-16.5 [facility] Comment on above: Performed By: #### L 100.1300 ####[facility] [address] [place], [address] MR/BMS.BVSon 01-20-2024 MR/BMS.BVS Normal [facility] Basic Metabolic Profile (BMP )on 01-11-2024 BUN/CRE 24.1 RATIO High 10-20 [facility] Comment on above: Order Comment: CC: Anand BRIDGES Performed By: #### L 500.2500, L100.0100 ####[facility] [address] [place], [address] [place],Total 8.9 mg/dL Normal 8.5-10.1 [facility] Comment on above: Order Comment: CC: Anand BRIDGES Performed By: #### L 500.2500, L100.0100 ####[facility] [address] [place], [address] Chloride [Moles/Vol] 113 mmol/L High 98-107 [facility] Comment on above: Order Comment: CC: Anand BRIDGES Performed By: #### L 500.2500, L100.0100 ####[facility] [address] [place], [address] CO2 [Moles/Vol] 24.0 mmol/L Normal 21.0-32.0 [facility] Comment on above: Order Comment: CC: Anand BRIDGES Performed By: #### L 500.2500, L100.0100 ####[facility] [address] [place], [address] Creatinine [Mass/Vol] 1.41 mg/dL High 0.70-1.30 [facility] Comment on above: Order Comment: CC: Anand BRIDGES Result Comment: The validity of the calculated GFR GFRAA in patients over70 years has not been determined. Clinical correlation isessential. Performed By: #### L 500.2500, L100.0100 ####[facility] [address] [place], [address] EST GFR - AA 62 mL/min Normal >60 [facility] Comment on above: Order Comment: CC: Anand BRIDGES Result Comment: Afri can [place] GFR Calc Performed By: #### L 500.2500, L100.0100 ####[facility] [address] [place], [address] GAP 4 Low 5-15 [facility] Comment on above: Order Comment: CC: Anand BRIDGES Performed By: #### L 500.2500, L100.0100 ####[facility] [address] [place], [address] GFR/1.73 sq M.predicted among non-blacks MDRD (S/P/Bld) [Vol rate/Area] 51 mL/min/{1.73_m2} Low >60 [facility] Comment on above: Order Comment: CC: Anand BRIDGES Result Comment: Non- GFR Calc Performed By: #### L 500.2500, L100.0100 ####[facility] [address] [place], [address] Glucose [Mass/Vol] 94 mg/dL Normal 74-106 [facility] Comment on above: Order Comment: CC: Anand BRIDGES Performed By: #### L 500.2500, L100.0100 ####[facility] [address] [place], [address] Potassium [Moles/Vol] 4.5 mmol/L Normal 3.5-5.1 [facility] Comment on above: Order Comment: CC: Anand BRIDGES Performed By: #### L 500.2500, L100.0100 ####[facility] [address] [place], [address] Sodium [Moles/Vol] 141 mmol/L Normal 136-145 [facility] Comment on above: Order Comment: CC: Anand BRIDGES Performed By: #### L 500.2500, L100.0100 ####[facility] [address] [place], [address] Urea nitrogen [Mass/Vol] 34 mg/dL High 7-18 [facility] Comment on above: Order Comment: CC: Anand BRIDGES Performed By: #### L 500.2500, L100.0100 ####[facility] [address] [place], [address] CBC W/Diff, Automatedon 12-30 Absolute Lymph 0.99 X10 3/uL Normal 0.83-4.51 [facility] Comment on above: Order Comment: CC: Anand BRIDGES Performed By: #### L 500.2500, L100.0100 ####[facility] [address] [place], [address] Absolute Neut 5.1 X10 3/uL Normal 2.0-7.7 [facility] Comment on above: Order Comment: CC: Anand BRIDGES Performed By: #### L 500.2500, L100.0100 ####[facility] [address] [place], [address] Basophils/100 WBC (Bld) 0.4 % Normal 0-1 [facility] Comment on above: Order Comment: CC: Anand BRIDGES Performed By: #### L 500.2500, L100.0100 ####[facility] [address] [place], [address] Eosinophils/100 WBC (Bld) 0.7 % Normal 0-5 [facility] Comment on above: Order Comment: CC: Anand BRIDGES Performed By: #### L 500.2500, L100.0100 ####[facility] [address] [place], [address] Erythrocyte distribution width (RBC) [Ratio] 14.4 % Normal 11.6-14.6 [facility] Comment on above: Order Comment: CC: nAand BRIDGES Performed By: #### L 500.2500, L100.0100 ####[facility] [address] [place], [address] Hematocrit (Bld) [Volume fraction] 39.1 % Low 40-54 [facility] Comment on above: Order Comment: CC: Anand BRIDGES Performed By: #### L 500.2500, L100.0100 ####[facility] [address] [place], [address] Hemoglobin (Bld) [Mass/Vol] 12.7 g/dL Low 13.0-16.5 [facility] Comment on above: Order Comment: CC: Anand BRIDGES Performed By: #### L 500.2500, L100.0100 ####[facility] [address] [place], [address] IG% 1.200 High 0.0-0.9 [facility] Comment on above: Order Comment: CC: Anand BRIDGES Result Comment: IG% - Immature Granulocytes (promyelocytes, myelocytes andmetamyelocytes) > 1% indicates that a LEFT SHIFT is Present. Performed By: #### L 500.2500, L100.0100 ####[facility] [address] [place], [address] Lymphocytes/100 WBC (Bld) 14.5 % Low 19-41 [facility] Comment on above: Order Comment: CC: Anand BRIDGES Performed By: #### L 500.2500, L100.0100 ####[facility] [address] [place], [address] MCH (RBC) [Entitic mass] 31.8 pg Normal 27.0-32.0 [facility] Comment on above: Order Comment: CC: Anand BRIDGES Performed By: #### L 500.2500, L100.0100 ####[facility] [address] [place], [address] MCHC (RBC) [Mass/Vol] 32.5 g/dL Normal 32-36 [facility] Comment on above: Order Comment: CC: Anand BRIDGES Performed By: #### L 500.2500, L100.0100 ####[facility] [address] [place], [address] MCV (RBC) [Entitic vol] 97.8 fL High 80-94 [facility] Comment on above: Order Comment: CC: Anand BRIDGES Performed By: #### L 500.2500, L100.0100 ####[facility] [address] [place], [address] Monocytes/100 WBC (Bld) 8.8 % Normal 0-10 [facility] Comment on above: Order Comment: CC: Anand BRIDGES Performed By: #### L 500.2500, L100.0100 ####[facility] [address] [place], [address] Neutrophils/100 WBC (Bld) 74.4 % High 47-70 [facility] Comment on above: Order Comment: CC: Anand BRIDGES Performed By: #### L 500.2500, L100.0100 ####[facility] [address] [place], [address] Nucleated RBC (Bld) [#/Vol] 0 10*3/uL Normal 0-5 [facility] Comment on above: Order Comment: CC: Anand BRIDGES Performed By: #### L 500.2500, L100.0100 ####[facility] [address] [place], [address] Platelet mean volume (Bld) [Entitic vol] 9.3 fL Normal 6.2-12.0 [facility] Comment on above: Order Comment: CC: Anand BRIDGES Performed By: #### L 500.2500, L100.0100 ####[facility] [address] [place], [address] Platelets (Bld) [#/Vol] 273 10*3/uL Normal 150-450 [facility] Comment on above: Order Comment: CC: Anand BRIDGES Performed By: #### L 500.2500, L100.0100 ####[facility] [address] [place], [address] RBC (Bld) [#/Vol] 4.00 10*6/uL Low 4.6-6.2 [facility] Comment on above: Order Comment: CC: Anand BRIDGES Performed By: #### L 500.2500, L100.0100 ####[facility] [address] [place], [address] RDW SD 52.1 fl High 35.1-43.9 [facility] Comment on above: Order Comment: CC: Anand BRIDGES Performed By: #### L 500.2500, L100.0100 ####[facility] [address] [place], [address] WBC (Bld) [#/Vol] 6.8 10*3/uL Normal 4.4-11.0 [facility] Comment on above: Order Comment: CC: Anand BRIDGES Performed By: #### L 500.2500, L100.0100 ####[facility] [address] [place], [address] CBC W/Diff, Automatedon - Absolute Neut Normal 2.0-7.7 [facility] Comment on above: Result Comment: Canc elled via OM: Order cancelled - Patient discharged Performed By: #### L 100.0100 ####[facility] [address] [place], [address] HCT Normal 40-54 [facility] Comment on above: Result Comment: Canc elled via OM: Order cancelled - Patient discharged Performed By: #### L 100.0100 ####[facility] [address] [place], [address] HGB Normal 13.0-16.5 [facility] Comment on above: Result Comment: Canc elled via OM: Order cancelled - Patient discharged Performed By: #### L 100.0100 ####[facility] [address] [place], [address] MCH Normal 27.0-32.0 [facility] Comment on above: Result Comment: Canc elled via OM: Order cancelled - Patient discharged Performed By: #### L 100.0100 ####[facility] [address] [place], [address] MCHC Normal 32-36 [facility] Comment on above: Result Comment: Canc elled via OM: Order cancelled - Patient discharged Performed By: #### L 100.0100 ####[facility] [address] [place], [address] MCV Normal 80-94 [facility] Comment on above: Result Comment: Canc elled via OM: Order cancelled - Patient discharged Performed By: #### L 100.0100 ####[facility] [address] [place], [address] NEUT% Normal 47-70 [facility] Comment on above: Result Comment: Canc elled via OM: Order cancelled - Patient discharged Performed By: #### L 100.0100 ####[facility] [address] [place], [address] PLT Normal 150-450 [facility] Comment on above: Result Comment: Canc elled via OM: Order cancelled - Patient discharged Performed By: #### L 100.0100 ####[facility] [address] [place], [address] RBC Normal 4.6-6.2 [facility] Comment on above: Result Comment: Canc elled via OM: Order cancelled - Patient discharged Performed By: #### L 100.0100 ####[facility] [address] [place], [address] RDW CV Normal 11.6-14.6 [facility] Comment on above: Result Comment: Canc elled via OM: Order cancelled - Patient discharged Performed By: #### L 100.0100 ####[facility] [address] [place], [address] RDW SD Normal 35.1-43.9 [facility] Comment on above: Result Comment: Canc elled via OM: Order cancelled - Patient discharged Performed By: #### L 100.0100 ####[facility] [address] [place], [address] WBC Normal 4.4-11.0 [facility] Comment on above: Result Comment: Canc elled via OM: Order cancelled - Patient discharged Performed By: #### L 100.0100 ####[facility] [address] [place], [address] Basic Metabolic Profile (BMP )on 01-09-2024 BUN Normal 7-18 [facility] Comment on above: Result Comment: Canc elled via OM: Order cancelled - Patient discharged Performed By: #### L 500.2500, L100.0100 ####[facility] [address] [place], [address] BUN/CRE Normal 10-20 [facility] Comment on above: Result Comment: Canc elled via OM: Order cancelled - Patient discharged Performed By: #### L 500.2500, L100.0100 ####[facility] [address] [place], [address] CA,Total Normal 8.5-10.1 [facility] Comment on above: Result Comment: Canc elled via OM: Order cancelled - Patient discharged Performed By: #### L 500.2500, L100.0100 ####[facility] [address] [place], [address] CL Normal 98-107 [facility] Comment on above: Result Comment: Canc elled via OM: Order cancelled - Patient discharged Performed By: #### L 500.2500, L100.0100 ####[facility] [address] [place], [address] CO2 Normal 21.0-32.0 [facility] Comment on above: Result Comment: Canc elled via OM: Order cancelled - Patient discharged Performed By: #### L 500.2500, L100.0100 ####[facility] [address] [place], [address] CREAT,SERUM Normal 0.70-1.30 [facility] Comment on above: Result Comment: Canc elled via OM: Order cancelled - Patient discharged Performed By: #### L 500.2500, L100.0100 ####[facility] [address] [place], [address] EST GFR Normal >60 [facility] Comment on above: Result Comment: Canc elled via OM: Order cancelled - Patient discharged Performed By: #### L 500.2500, L100.0100 ####[facility] [address] [place], [address] EST GFR - AA Normal >60 [facility] Comment on above: Result Comment: Canc elled via OM: Order cancelled - Patient discharged Performed By: #### L 500.2500, L100.0100 ####[facility] [address] [place], [address] GAP Normal 5-15 [facility] Comment on above: Result Comment: Canc elled via OM: Order cancelled - Patient discharged Performed By: #### L 500.2500, L100.0100 ####[facility] [address] [place], [address] GLU Normal 74-106 [facility] Comment on above: Result Comment: Canc elled via OM: Order cancelled - Patient discharged Performed By: #### L 500.2500, L100.0100 ####[facility] [address] [place], [address] Potassium Normal 3.5-5.1 [facility] Comment on above: Result Comment: Canc elled via OM: Order cancelled - Patient discharged Performed By: #### L 500.2500, L100.0100 ####[facility] [address] [place], [address] Basic Metabolic Profile (BMP) Normal 136-145 [facility] Comment on above: Result Comment: Canc elled via OM: Order cancelled - Patient discharged Performed By: #### L 500.2500, L100.0100 ####[facility] [address] [place], [address] CBC W/Diff, Automatedon 08 0-2023 Absolute Neut Normal 2.0-7.7 [facility] Comment on above: Result Comment: Canc elled via OM: Order cancelled - Patient discharged Performed By: #### L 500.2500, L100.0100 ####[facility] [address] [place], [address] HCT Normal 40-54 [facility] Comment on above: Result Comment: Canc elled via OM: Order cancelled - Patient discharged Performed By: #### L 500.2500, L100.0100 ####[facility] [address] [place], [address] HGB Normal 13.0-16.5 [facility] Comment on above: Result Comment: Canc elled via OM: Order cancelled - Patient discharged Performed By: #### L 500.2500, L100.0100 ####[facility] [address] [place], [address] MCH Normal 27.0-32.0 [facility] Comment on above: Result Comment: Canc elled via OM: Order cancelled - Patient discharged Performed By: #### L 500.2500, L100.0100 ####[facility] [address] [place], [address] MCHC Normal 32-36 [facility] Comment on above: Result Comment: Canc elled via OM: Order cancelled - Patient discharged Performed By: #### L 500.2500, L100.0100 ####[facility] [address] [place], [address] MCV Normal 80-94 [facility] Comment on above: Result Comment: Canc elled via OM: Order cancelled - Patient discharged Performed By: #### L 500.2500, L100.0100 ####[facility] [address] [place], [address] NEUT% Normal 47-70 [facility] Comment on above: Result Comment: Canc elled via OM: Order cancelled - Patient discharged Performed By: #### L 500.2500, L100.0100 ####[facility] [address] [place], [address] PLT Normal 150-450 [facility] Comment on above: Result Comment: Canc elled via OM: Order cancelled - Patient discharged Performed By: #### L 500.2500, L100.0100 ####[facility] [address] [place], [address] RBC Normal 4.6-6.2 [facility] Comment on above: Result Comment: Canc elled via OM: Order cancelled - Patient discharged Performed By: #### L 500.2500, L100.0100 ####[facility] [address] [place], [address] RDW CV Normal 11.6-14.6 [facility] Comment on above: Result Comment: Canc elled via OM: Order cancelled - Patient discharged Performed By: #### L 500.2500, L100.0100 ####[facility] [address] [place], [address] RDW SD Normal 35.1-43.9 [facility] Comment on above: Result Comment: Canc elled via OM: Order cancelled - Patient discharged Performed By: #### L 500.2500, L100.0100 ####[facility] [address] [place], [address] WBC Normal 4.4-11.0 [facility] Comment on above: Result Comment: Canc elled via OM: Order cancelled - Patient discharged Performed By: #### L 500.2500, L100.0100 ####[facility] [address] [place], [address] Basic Metabolic Profile (BMP )on 01-08-2024 BUN/CRE 29.8 RATIO High 10-20 [facility] Comment on above: Performed By: #### L 500.2500, L100.0100 ####[facility] [address] [place], [address] CA,Total 8.5 mg/dL Normal 8.5-10.1 [facility] Comment on above: Performed By: #### L 500.2500, L100.0100 ####[facility] [address] [place], [address] Chloride [Moles/Vol] 111 mmol/L High 98-107 [facility] Comment on above: Performed By: #### L 500.2500, L100.0100 ####[facility] [address] [place], [address] CO2 [Moles/Vol] 21.0 mmol/L Normal 21.0-32.0 [facility] Comment on above: Performed By: #### L 500.2500, L100.0100 ####[facility] [address] [place], [address] Creatinine [Mass/Vol] 1.14 mg/dL Normal 0.70-1.30 [facility] Comment on above: Result Comment: The validity of the calculated GFR GFRAA in patients over70 years has not been determined. Clinical correlation isessential. Performed By: #### L 500.2500, L100.0100 ####[facility] [address] [place], [address] ECRCL 53.48 ml/min Normal [facility] Comment on above: Performed By: #### L 500.2500, L100.0100 ####[facility] [address] [place], [address] EST GFR - AA 79 mL/min Normal >60 [facility] Comment on above: Result Comment: Afri can Moz[place] GFR Calc Performed By: #### L 500.2500, L100.0100 ####[facility] [address] [place], [address] GAP 7 Normal 5-15 [facility] Comment on above: Performed By: #### L 500.2500, L100.0100 ####[facility] [address] [place], [address] GFR/1.73 sq M.predicted among non-blacks MDRD (S/P/Bld) [Vol rate/Area] 66 mL/min/{1.73_m2} Normal >60 [facility] Comment on above: Result Comment: Non- GFR Calc Performed By: #### L 500.2500, L100.0100 ####[facility] [address] [place], [address] Glucose [Mass/Vol] 87 mg/dL Normal 74-106 [facility] Comment on above: Performed By: #### L 500.2500, L100.0100 ####[facility] [address] [place], [address] Potassium [Moles/Vol] 4.2 mmol/L Normal 3.5-5.1 [facility] Comment on above: Performed By: #### L 500.2500, L100.0100 ####[facility] [address] [place], [address] Sodium [Moles/Vol] 139 mmol/L Normal 136-145 [facility] Comment on above: Performed By: #### L 500.2500, L100.0100 ####[facility] [address] [place], [address] Urea nitrogen [Mass/Vol] 34 mg/dL High 7-18 [facility] Comment on above: Performed By: #### L 500.2500, L100.0100 ####[facility] [address] [place], [address] BUN Normal 7-18 [facility] Comment on above: Result Comment: DUPL ICATE ORDER Performed By: #### L 500.2500 ####[facility] [address] [place], [address] BUN/CRE Normal 10-20 [facility] Comment on above: Result Comment: DUPL ICATE ORDER Performed By: #### L 500.2500 ####[facility] [address] [place], [address] CA,Total Normal 8.5-10.1 [facility] Comment on above: Result Comment: DUPL ICATE ORDER Performed By: #### L 500.2500 ####[facility] [address] [place], [address] CL Normal 98-107 [facility] Comment on above: Result Comment: DUPL ICATE ORDER Performed By: #### L 500.2500 ####[facility] [address] [place], [address] CO2 Normal 21.0-32.0 [facility] Comment on above: Result Comment: DUPL ICATE ORDER Performed By: #### L 500.2500 ####[facility] [address] [place], [address] CREAT,SERUM Normal 0.70-1.30 [facility] Comment on above: Result Comment: DUPL ICATE ORDER Performed By: #### L 500.2500 ####[facility] [address] [place], [address] EST GFR Normal >60 [facility] Comment on above: Result Comment: DUPL ICATE ORDER Performed By: #### L 500.2500 ####[facility] [address] [place], [address] EST GFR - AA Normal >60 [facility] Comment on above: Result Comment: DUPL ICATE ORDER Performed By: #### L 500.2500 ####[facility] [address] [place], [address] GAP Normal 5-15 [facility] Comment on above: Result Comment: DUPL ICATE ORDER Performed By: #### L 500.2500 ####[facility] [address] [place], [address] GLU Normal 74-106 [facility] Comment on above: Result Comment: DUPL ICATE ORDER Performed By: #### L 500.2500 ####[facility] [address] [place], [address] Potassium Normal 3.5-5.1 [facility] Comment on above: Result Comment: DUPL ICATE ORDER Performed By: #### L 500.2500 ####[facility] [address] [place], [address] Basic Metabolic Profile (BMP) Normal 136-145 [facility] Comment on above: Result Comment: DUPL ICATE ORDER Performed By: #### L 500.2500 ####[facility] [address] [place], [address] CBC W/Diff, Automatedon 08-0 9-2023 Absolute Lymph 1.00 X10 3/uL Normal 0.83-4.51 [facility] Comment on above: Performed By: #### L 500.2500, L100.0100 ####[facility] [address] [place], [address] Absolute Neut 4.4 X10 3/uL Normal 2.0-7.7 [facility] Comment on above: Performed By: #### L 500.2500, L100.0100 ####[facility] [address] [place], [address] Basophils/100 WBC (Bld) 0.3 % Normal 0-1 [facility] Comment on above: Performed By: #### L 500.2500, L100.0100 ####[facility] [address] [place], [address] Eosinophils/100 WBC (Bld) 0.5 % Normal 0-5 [facility] Comment on above: Performed By: #### L 500.2500, L100.0100 ####[facility] [address] [place], [address] Erythrocyte distribution width (RBC) [Ratio] 14.2 % Normal 11.6-14.6 [facility] Comment on above: Performed By: #### L 500.2500, L100.0100 ####[facility] [address] [place], [address] Hematocrit (Bld) [Volume fraction] 36.4 % Low 40-54 [facility] Comment on above: Performed By: #### L 500.2500, L100.0100 ####[facility] [address] [place], [address] Hemoglobin (Bld) [Mass/Vol] 11.9 g/dL Low 13.0-16.5 [facility] Comment on above: Performed By: #### L 500.2500, L100.0100 ####[facility] [address] [place], [address] IG% 0.800 Normal 0.0-0.9 [facility] Comment on above: Result Comment: IG% - Immature Granulocytes (promyelocytes, myelocytes andmetamyelocytes) > 1% indicates that a LEFT SHIFT is Present. Performed By: #### L 500.2500, L100.0100 ####[facility] [address] [place], [address] Lymphocytes/100 WBC (Bld) 16.2 % Low 19-41 [facility] Comment on above: Performed By: #### L 500.2500, L100.0100 ####[facility] [address] [place], [address] MCH (RBC) [Entitic mass] 31.7 pg Normal 27.0-32.0 [facility] Comment on above: Performed By: #### L 500.2500, L100.0100 ####[facility] [address] [place], [address] MCHC (RBC) [Mass/Vol] 32.7 g/dL Normal 32-36 [facility] Comment on above: Performed By: #### L 500.2500, L100.0100 ####[facility] [address] [place], [address] MCV (RBC) [Entitic vol] 97.1 fL High 80-94 [facility] Comment on above: Performed By: #### L 500.2500, L100.0100 ####[facility] [address] [place], [address] Monocytes/100 WBC (Bld) 11.1 % High 0-10 [facility] Comment on above: Performed By: #### L 500.2500, L100.0100 ####[facility] [address] [place], [address] Neutrophils/100 WBC (Bld) 71.1 % High 47-70 [facility] Comment on above: Performed By: #### L 500.2500, L100.0100 ####[facility] [address] [place], [address] Nucleated RBC (Bld) [#/Vol] 0 10*3/uL Normal 0-5 [facility] Comment on above: Performed By: #### L 500.2500, L100.0100 ####[facility] [address] [place], [address] Platelet mean volume (Bld) [Entitic vol] 9.7 fL Normal 6.2-12.0 [facility] Comment on above: Performed By: #### L 500.2500, L100.0100 ####[facility] [address] [place], [address] Platelets (Bld) [#/Vol] 194 10*3/uL Normal 150-450 [facility] Comment on above: Performed By: #### L 500.2500, L100.0100 ####[facility] [address] [place], [address] RBC (Bld) [#/Vol] 3.75 10*6/uL Low 4.6-6.2 [facility] Comment on above: Performed By: #### L 500.2500, L100.0100 ####[facility] [address] [place], [address] RDW SD 50.3 fl High 35.1-43.9 [facility] Comment on above: Performed By: #### L 500.2500, L100.0100 ####[facility] [address] [place], [address] WBC (Bld) [#/Vol] 6.2 10*3/uL Normal 4.4-11.0 [facility] Comment on above: Performed By: #### L 500.2500, L100.0100 ####[facility] [address] [place], [address] Discharge Instructionon 08-0 Discharge Instruction Normal [facility] Stool Occult Blood iFOBon STOB Positive Normal [facility] Comment on above: Performed By: #### M 100.7900 ####[facility] [address] [place], [address] Basic Metabolic Profile (BMP )on 01-07-2024 BUN/CRE 29.5 RATIO High 10-20 [facility] Comment on above: Performed By: #### L 500.2500 ####[facility] [address] [place], [address] CA,Total 8.4 mg/dL Low 8.5-10.1 [facility] Comment on above: Performed By: #### L 500.2500 ####[facility] [address] [place], [address] Chloride [Moles/Vol] 113 mmol/L High 98-107 [facility] Comment on above: Performed By: #### L 500.2500 ####[facility] [address] [place], [address] CO2 [Moles/Vol] 23.0 mmol/L Normal 21.0-32.0 [facility] Comment on above: Performed By: #### L 500.2500 ####[facility] [address] [place], [address] Creatinine [Mass/Vol] 1.32 mg/dL High 0.70-1.30 [facility] Comment on above: Result Comment: The validity of the calculated GFR GFRAA in patients over70 years has not been determined. Clinical correlation isessential. Performed By: #### L 500.2500 ####[facility] [address] [place], [address] ECRCL 46.19 ml/min Normal [facility] Comment on above: Performed By: #### L 500.2500 ####[facility] [address] [place], [address] EST GFR - AA 67 mL/min Normal >60 [facility] Comment on above: Result Comment: Afri can Mozambican GFR Calc Performed By: #### L 500.2500 ####[facility] [address] [place], [address] GAP 5 Normal 5-15 [facility] Comment on above: Performed By: #### L 500.2500 ####[facility] [address] [place], [address] GFR/1.73 sq M.predicted among non-blacks MDRD (S/P/Bld) [Vol rate/Area] 55 mL/min/{1.73_m2} Low >60 [facility] Comment on above: Result Comment: Non- GFR Calc Performed By: #### L 500.2500 ####[facility] [address] [place], [address] Glucose [Mass/Vol] 86 mg/dL Normal 74-106 [facility] Comment on above: Performed By: #### L 500.2500 ####[facility] [address] [place], [address] Potassium [Moles/Vol] 4.4 mmol/L Normal 3.5-5.1 [facility] Comment on above: Performed By: #### L 500.2500 ####[facility] [address] [place], [address] Sodium [Moles/Vol] 141 mmol/L Normal 136-145 [facility] Comment on above: Performed By: #### L 500.2500 ####[facility] [address] [place], [address] Urea nitrogen [Mass/Vol] 39 mg/dL High 7-18 [facility] Comment on above: Performed By: #### L 500.2500 ####[facility] [address] [place], [address] CBC W/Diff, Automatedon 08-0 8-4 Absolute Lymph 0.88 X10 3/uL Normal 0.83-4.51 [facility] Comment on above: Performed By: #### L 100.0100 ####[facility] [address] [place], [address] Absolute Neut 4.7 X10 3/uL Normal 2.0-7.7 [facility] Comment on above: Performed By: #### L 100.0100 ####[facility] [address] [place], [address] Basophils/100 WBC (Bld) 0.3 % Normal 0-1 [facility] Comment on above: Performed By: #### L 100.0100 ####[facility] [address] [place], [address] Eosinophils/100 WBC (Bld) 0.5 % Normal 0-5 [facility] Comment on above: Performed By: #### L 100.0100 ####[facility] [address] [place], [address] Erythrocyte distribution width (RBC) [Ratio] 14.1 % Normal 11.6-14.6 [facility] Comment on above: Performed By: #### L 100.0100 ####[facility] [address] [place], [address] Hematocrit (Bld) [Volume fraction] 34.7 % Low 40-54 [facility] Comment on above: Performed By: #### L 100.0100 ####[facility] [address] [place], [address] Hemoglobin (Bld) [Mass/Vol] 11.3 g/dL Low 13.0-16.5 [facility] Comment on above: Performed By: #### L 100.0100 ####[facility] [address] [place], [address] IG% 0.800 Normal 0.0-0.9 [facility] Comment on above: Result Comment: IG% - Immature Granulocytes (promyelocytes, myelocytes andmetamyelocytes) > 1% indicates that a LEFT SHIFT is Present. Performed By: #### L 100.0100 ####[facility] [address] [place], [address] Lymphocytes/100 WBC (Bld) 13.8 % Low 19-41 [facility] Comment on above: Performed By: #### L 100.0100 ####[facility] [address] [place], [address] MCH (RBC) [Entitic mass] 31.7 pg Normal 27.0-32.0 [facility] Comment on above: Performed By: #### L 100.0100 ####[facility] [address] [place], [address] MCHC (RBC) [Mass/Vol] 32.6 g/dL Normal 32-36 [facility] Comment on above: Performed By: #### L 100.0100 ####[facility] [address] [place], [address] MCV (RBC) [Entitic vol] 97.2 fL High 80-94 [facility] Comment on above: Performed By: #### L 100.0100 ####[facility] [address] [place], [address] Monocytes/100 WBC (Bld) 10.5 % High 0-10 [facility] Comment on above: Performed By: #### L 100.0100 ####[facility] [address] [place], [address] Neutrophils/100 WBC (Bld) 74.1 % High 47-70 [facility] Comment on above: Performed By: #### L 100.0100 ####[facility] [address] [place], [address] Nucleated RBC (Bld) [#/Vol] 0 10*3/uL Normal 0-5 [facility] Comment on above: Performed By: #### L 100.0100 ####[facility] [address] [place], [address] Platelet mean volume (Bld) [Entitic vol] 10.0 fL Normal 6.2-12.0 [facility] Comment on above: Performed By: #### L 100.0100 ####[facility] [address] [place], [address] Platelets (Bld) [#/Vol] 174 10*3/uL Normal 150-450 [facility] Comment on above: Performed By: #### L 100.0100 ####[facility] [address] [place], [address] RBC (Bld) [#/Vol] 3.57 10*6/uL Low 4.6-6.2 [facility] Comment on above: Performed By: #### L 100.0100 ####[facility] [address] [place], [address] RDW SD 50.3 fl High 35.1-43.9 [facility] Comment on above: Performed By: #### L 100.0100 ####[facility] [address] [place], [address] WBC (Bld) [#/Vol] 6.4 10*3/uL Normal 4.4-11.0 [facility] Comment on above: Performed By: #### L 100.0100 ####[facility] [address] 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, [address] Basic Metabolic Profile (BMP )on 01-06-2024 BUN/CRE 29.9 RATIO High 10-20 [facility] Comment on above: Performed By: #### L 500.2500, L501.9520, L100.0100 ####[facility] [address] [place], [address] CA,Total 8.4 mg/dL Low 8.5-10.1 [facility] Comment on above: Performed By: #### L 500.2500, L501.9520, L100.0100 ####[facility] [address] [place], [address] Chloride [Moles/Vol] 111 mmol/L High 98-107 [facility] Comment on above: Performed By: #### L 500.2500, L501.9520, L100.0100 ####[facility] [address] [place], [address] CO2 [Moles/Vol] 22.0 mmol/L Normal 21.0-32.0 [facility] Comment on above: Performed By: #### L 500.2500, L501.9520, L100.0100 ####[facility] [address] [place], [address] Creatinine [Mass/Vol] 1.74 mg/dL High 0.70-1.30 [facility] Comment on above: Result Comment: The validity of the calculated GFR GFRAA in patients over70 years has not been determined. Clinical correlation isessential. Performed By: #### L 500.2500, L501.9520, L100.0100 ####[facility] [address] [place], [address] ECRCL 35.04 ml/min Normal [facility] Comment on above: Performed By: #### L 500.2500, L501.9520, L100.0100 ####[facility] [address] [place], [address] EST GFR - AA 49 mL/min Low >60 [facility] Comment on above: Result Comment: Afri can Mozambican GFR Calc Performed By: #### L 500.2500, L501.9520, L100.0100 ####[facility] [address] [place], [address] GAP 8 Normal 5-15 [facility] Comment on above: Performed By: #### L 500.2500, L501.9520, L100.0100 ####[facility] [address] [place], [address] GFR/1.73 sq M.predicted among non-blacks MDRD (S/P/Bld) [Vol rate/Area] 40 mL/min/{1.73_m2} Low >60 [facility] Comment on above: Result Comment: Non- GFR Calc Performed By: #### L 500.2500, L501.9520, L100.0100 ####[facility] [address] [place], [address] Glucose [Mass/Vol] 86 mg/dL Normal 74-106 [facility] Comment on above: Performed By: #### L 500.2500, L501.9520, L100.0100 ####[facility] [address] [place], [address] Potassium [Moles/Vol] 4.2 mmol/L Normal 3.5-5.1 [facility] Comment on above: Performed By: #### L 500.2500, L501.9520, L100.0100 ####[facility] [address] [place], [address] Sodium [Moles/Vol] 141 mmol/L Normal 136-145 [facility] Comment on above: Performed By: #### L 500.2500, L501.9520, L100.0100 ####[facility] [address] [place], [address] Urea nitrogen [Mass/Vol] 52 mg/dL High 7-18 [facility] Comment on above: Performed By: #### L 500.2500, L501.9520, L100.0100 ####[facility] [address] [place], [address] CBC W/Diff, Automatedon 08-0 7-2024 Absolute Lymph 0.97 X10 3/uL Normal 0.83-4.51 [facility] Comment on above: Performed By: #### L 500.2500, L501.9520, L100.0100 ####[facility] [address] [place], [address] Absolute Neut 6.2 X10 3/uL Normal 2.0-7.7 [facility] Comment on above: Performed By: #### L 500.2500, L501.9520, L100.0100 ####[facility] [address] [place], [address] Basophils/100 WBC (Bld) 0.5 % Normal 0-1 [facility] Comment on above: Performed By: #### L 500.2500, L501.9520, L100.0100 ####[facility] [address] [place], [address] Eosinophils/100 WBC (Bld) 0.5 % Normal 0-5 [facility] Comment on above: Performed By: #### L 500.2500, L501.9520, L100.0100 ####[facility] [address] [place], [address] Erythrocyte distribution width (RBC) [Ratio] 14.4 % Normal 11.6-14.6 [facility] Comment on above: Performed By: #### L 500.2500, L501.9520, L100.0100 ####[facility] [address] [place], [address] Hematocrit (Bld) [Volume fraction] 35.5 % Low 40-54 [facility] Comment on above: Performed By: #### L 500.2500, L501.9520, L100.0100 ####[facility] [address] [place], [address] Hemoglobin (Bld) [Mass/Vol] 11.6 g/dL Low 13.0-16.5 [facility] Comment on above: Performed By: #### L 500.2500, L501.9520, L100.0100 ####[facility] [address] [place], [address] IG% 0.700 Normal 0.0-0.9 [facility] Comment on above: Result Comment: IG% - Immature Granulocytes (promyelocytes, myelocytes andmetamyelocytes) > 1% indicates that a LEFT SHIFT is Present. Performed By: #### L 500.2500, L501.9520, L100.0100 ####[facility] [address] [place], [address] Lymphocytes/100 WBC (Bld) 12.0 % Low 19-41 [facility] Comment on above: Performed By: #### L 500.2500, L501.9520, L100.0100 ####[facility] [address] [place], [address] MCH (RBC) [Entitic mass] 31.5 pg Normal 27.0-32.0 [facility] Comment on above: Performed By: #### L 500.2500, L501.9520, L100.0100 ####[facility] [address] [place], [address] MCHC (RBC) [Mass/Vol] 32.7 g/dL Normal 32-36 [facility] Comment on above: Performed By: #### L 500.2500, L501.9520, L100.0100 ####[facility] [address] [place], [address] MCV (RBC) [Entitic vol] 96.5 fL High 80-94 [facility] Comment on above: Performed By: #### L 500.2500, L501.9520, L100.0100 ####[facility] [address] [place], [address] Monocytes/100 WBC (Bld) 9.9 % Normal 0-10 [facility] Comment on above: Performed By: #### L 500.2500, L501.9520, L100.0100 ####[facility] [address] [place], [address] Neutrophils/100 WBC (Bld) 76.4 % High 47-70 [facility] Comment on above: Performed By: #### L 500.2500, L501.9520, L100.0100 ####[facility] [address] [place], [address] Nucleated RBC (Bld) [#/Vol] 0 10*3/uL Normal 0-5 [facility] Comment on above: Performed By: #### L 500.2500, L501.9520, L100.0100 ####[facility] [facility] [address] [place], [address] Platelet mean volume (Bld) [Entitic vol] 10.1 fL Normal 6.2-12.0 [facility] Comment on above: Performed By: #### L 500.2500, L501.9520, L100.0100 ####[facility] [address] [place], [address] Platelets (Bld) [#/Vol] 163 10*3/uL Normal 150-450 [facility] Comment on above: Performed By: #### L 500.2500, L501.9520, L100.0100 ####[facility] [address] [place], [address] RBC (Bld) [#/Vol] 3.68 10*6/uL Low 4.6-6.2 [facility] Comment on above: Performed By: #### L 500.2500, L501.9520, L100.0100 ####[facility] [address] [place], [address] RDW SD 50.6 fl High 35.1-43.9 [facility] Comment on above: Performed By: #### L 500.2500, L501.9520, L100.0100 ####[facility] [address] [place], [address] WBC (Bld) [#/Vol] 8.1 10*3/uL Normal 4.4-11.0 [facility] Comment on above: Performed By: #### L 500.2500, L501.9520, L100.0100 ####[facility] [address] [place], [address] Consultation - Nephrologyon 01-06-2024 Consultation - Nephrology Normal [facility] Consultation - Surgicalon Consultation - Surgical Normal [facility] Kidney and Bladderon 024 Kidney and Bladder Normal [facility] Thyroid Stim Hormone (TSH)on 01-06-2024 TSH 1.08 uIU/mL Normal 0.358-3.74 [facility] Comment on above: Performed By: #### L 500.2500, L501.9520, L100.0100 ####[facility] [address] [place], [address] Urine Electrolytes- Randomon 01-06-2024 UR CL 123 mmol/L Normal Not Establ. [facility] Comment on above: Performed By: #### L 500.9400 ####[facility] [address] [place], [address] UR K 49.9 mmol/L Normal Not Establ. [facility] Comment on above: Performed By: #### L 500.9400 ####[facility] [address] [place], [address] 12 Lead EKGon 01-05-2024 12 Lead EKG Normal [facility] BNP,B-Type NATRIURETIC PEPTI Britt 01-05-2024 Natriuretic peptide B (Bld) [Mass/Vol] 84.8 pg/mL Normal 0-100 [facility] Comment on above: Performed By: #### L 503.6620, L500.4050, L501.4020, L100.0100 ####[facility] [address] [place], [address] CBC W/Diff, Automatedon 08 Absolute Lymph 1.26 X10 3/uL Normal 0.83-4.51 [facility] Comment on above: Performed By: #### L 503.6620, L500.4050, L501.4020, L100.0100 ####[facility] [address] [place], [address] Absolute Neut 6.8 X10 3/uL Normal 2.0-7.7 [facility] Comment on above: Performed By: #### L 503.6620, L500.4050, L501.4020, L100.0100 ####[facility] [address] [place], [address] Basophils/100 WBC (Bld) 0.3 % Normal 0-1 [facility] Comment on above: Performed By: #### L 503.6620, L500.4050, L501.4020, L100.0100 ####[facility] [address] [place], [address] Eosinophils/100 WBC (Bld) 0.2 % Normal 0-5 [facility] Comment on above: Performed By: #### L 503.6620, L500.4050, L501.4020, L100.0100 ####[facility] [address] [place], [address] Erythrocyte distribution width (RBC) [Ratio] 14.4 % Normal 11.6-14.6 [facility] Comment on above: Performed By: #### L 503.6620, L500.4050, L501.4020, L100.0100 ####[facility] [address] [place], [address] Hematocrit (Bld) [Volume fraction] 42.1 % Normal 40-54 [facility] Comment on above: Performed By: #### L 503.6620, L500.4050, L501.4020, L100.0100 ####[facility] [address] [place], [address] Hemoglobin (Bld) [Mass/Vol] 13.8 g/dL Normal 13.0-16.5 [facility] Comment on above: Performed By: #### L 503.6620, L500.4050, L501.4020, L100.0100 ####[facility] [address] [place], [address] IG% 0.800 Normal 0.0-0.9 [facility] Comment on above: Result Comment: IG% - Immature Granulocytes (promyelocytes, myelocytes andmetamyelocytes) > 1% indicates that a LEFT SHIFT is Present. Performed By: #### L 503.6620, L500.4050, L501.4020, L100.0100 ####[facility] [address] [place], [address] Lymphocytes/100 WBC (Bld) 13.9 % Low 19-41 [facility] Comment on above: Performed By: #### L 503.6620, L500.4050, L501.4020, L100.0100 ####[facility] [address] [place], [address] MCH (RBC) [Entitic mass] 31.7 pg Normal 27.0-32.0 [facility] Comment on above: Performed By: #### L 503.6620, L500.4050, L501.4020, L100.0100 ####[facility] [address] [place], [address] MCHC (RBC) [Mass/Vol] 32.8 g/dL Normal 32-36 [facility] Comment on above: Performed By: #### L 503.6620, L500.4050, L501.4020, L100.0100 ####[facility] [address] [place], [address] MCV (RBC) [Entitic vol] 96.8 fL High 80-94 [facility] Comment on above: Performed By: #### L 503.6620, L500.4050, L501.4020, L100.0100 ####[facility] [address] [place], [address] Monocytes/100 WBC (Bld) 9.3 % Normal 0-10 [facility] Comment on above: Performed By: #### L 503.6620, L500.4050, L501.4020, L100.0100 ####[facility] [address] [place], [address] Neutrophils/100 WBC (Bld) 75.5 % High 47-70 [facility] Comment on above: Performed By: #### L 503.6620, L500.4050, L501.4020, L100.0100 ####[facility] [address] [place], [address] Nucleated RBC (Bld) [#/Vol] 0 10*3/uL Normal 0-5 [facility] Comment on above: Performed By: #### L 503.6620, L500.4050, L501.4020, L100.0100 ####[facility] [address] [place], [address] Platelet mean volume (Bld) [Entitic vol] 9.9 fL Normal 6.2-12.0 [facility] Comment on above: Performed By: #### L 503.6620, L500.4050, L501.4020, L100.0100 ####[facility] [address] [place], [address] Platelets (Bld) [#/Vol] 199 10*3/uL Normal 150-450 [facility] Comment on above: Performed By: #### L 503.6620, L500.4050, L501.4020, L100.0100 ####[facility] [address] [place], [address] RBC (Bld) [#/Vol] 4.35 10*6/uL Low 4.6-6.2 [facility] Comment on above: Performed By: #### L 503.6620, L500.4050, L501.4020, L100.0100 ####[facility] [address] [place], [address] RDW SD 51.1 fl High 35.1-43.9 [facility] Comment on above: Performed By: #### L 503.6620, L500.4050, L501.4020, L100.0100 ####[facility] [address] [place], [address] WBC (Bld) [#/Vol] 9.0 10*3/uL Normal 4.4-11.0 [facility] Comment on above: Performed By: #### L 503.6620, L500.4050, L501.4020, L100.0100 ####[facility] [address] [place], [address] CPK Total, Creatine Kinaseon 01-05-2024 CPK TOTAL 44 U/L Normal 39-308 [facility] Comment on above: Performed By: #### L 501.1400, L501.3620 ####[facility] [address] [place], [address] Chest 1 View (Portable)on Chest 1 View (Portable) Normal [facility] Comprehensive Metabolic Prof ilon 01-05-2024 Albumin [Mass/Vol] 3.6 g/dL Normal 3.2-5.0 [facility] Comment on above: Order Comment: 'TROP ' Serial specimen #1, #2 or #3: 1 Performed By: #### L 503.6620, L500.4050, L501.4020, L100.0100 ####[facility] [address] [place], [address] Albumin/Globulin [Mass ratio] 1.1 {ratio} Normal 0.9-2.4 [facility] Comment on above: Order Comment: 'TROP ' Serial specimen #1, #2 or #3: 1 Performed By: #### L 503.6620, L500.4050, L501.4020, L100.0100 ####[facility] [address] [place], [address] ALK P 63 U/L Normal 45-117 [facility] Comment on above: Order Comment: 'TROP ' Serial specimen #1, #2 or #3: 1 Performed By: #### L 503.6620, L500.4050, L501.4020, L100.0100 ####[facility] [address] [place], [address] ALT [Catalytic activity/Vol] 24 U/L Normal 16-61 [facility] Comment on above: Order Comment: 'TROP ' Serial specimen #1, #2 or #3: 1 Performed By: #### L 503.6620, L500.4050, L501.4020, L100.0100 ####[facility] [address] [place], [address] AST [Catalytic activity/Vol] 12 U/L Low 15-37 [facility] Comment on above: Order Comment: 'TROP ' Serial specimen #1, #2 or #3: 1 Performed By: #### L 503.6620, L500.4050, L501.4020, L100.0100 ####[facility] [address] [place], [address] Bilirubin [Mass/Vol] 1.40 mg/dL High 0.20-1.00 [facility] Comment on above: Order Comment: 'TROP ' Serial specimen #1, #2 or #3: 1 Result Comment: For patients on eltrombopag therapy, use of Dimension [place] TBIL is not recommended. Performed By: #### L 503.6620, L500.4050, L501.4020, L100.0100 ####[facility] [address] [place], [address] BUN/CRE 19.9 RATIO Normal 10-20 [facility] Comment on above: Order Comment: 'TROP ' Serial specimen #1, #2 or #3: 1 Performed By: #### L 503.6620, L500.4050, L501.4020, L100.0100 ####[facility] [address] [place], [address] CA,Total 9.4 mg/dL Normal 8.5-10.1 [facility] Comment on above: Order Comment: 'TROP ' Serial specimen #1, #2 or #3: 1 Performed By: #### L 503.6620, L500.4050, L501.4020, L100.0100 ####[facility] [address] [place], [address] Chloride [Moles/Vol] 110 mmol/L High 98-107 [facility] Comment on above: Order Comment: 'TROP ' Serial specimen #1, #2 or #3: 1 Performed By: #### L 503.6620, L500.4050, L501.4020, L100.0100 ####[facility] [address] [place], [address] CO2 [Moles/Vol] 24.0 mmol/L Normal 21.0-32.0 [facility] Comment on above: Order Comment: 'TROP ' Serial specimen #1, #2 or #3: 1 Performed By: #### L 503.6620, L500.4050, L501.4020, L100.0100 ####[facility] [address] [place], [address] Creatinine [Mass/Vol] 2.66 mg/dL High 0.70-1.30 [facility] Comment on above: Order Comment: 'TROP ' Serial specimen #1, #2 or #3: 1 Result Comment: The validity of the calculated GFR GFRAA in patients over70 years has not been determined. Clinical correlation isessential. Performed By: #### L 503.6620, L500.4050, L501.4020, L100.0100 ####[facility] [address] [place], [address] ECRCL 22.99 ml/min Normal [facility] Comment on above: Order Comment: 'TROP ' Serial specimen #1, #2 or #3: 1 Performed By: #### L 503.6620, L500.4050, L501.4020, L100.0100 ####[facility] [address] [place], [address] EST GFR - AA 30 mL/min Low >60 [facility] Comment on above: Order Comment: 'TROP ' Serial specimen #1, #2 or #3: 1 Result Comment: Afri can Mozambican GFR Calc Performed By: #### L 503.6620, L500.4050, L501.4020, L100.0100 ####[facility] [address] [place], [address] GAP 7 Normal 5-15 [facility] Comment on above: Order Comment: 'TROP ' Serial specimen #1, #2 or #3: 1 Performed By: #### L 503.6620, L500.4050, L501.4020, L100.0100 ####[facility] [address] [place], [address] GFR/1.73 sq M.predicted among non-blacks MDRD (S/P/Bld) [Vol rate/Area] 25 mL/min/{1.73_m2} Low >60 [facility] Comment on above: Order Comment: 'TROP ' Serial specimen #1, #2 or #3: 1 Result Comment: Non- GFR Calc Performed By: #### L 503.6620, L500.4050, L501.4020, L100.0100 ####[facility] [address] [place], [address] Globulin (S) [Mass/Vol] 3.2 g/dL Normal 2.2-4.2 [facility] Comment on above: Order Comment: 'TROP ' Serial specimen #1, #2 or #3: 1 Performed By: #### L 503.6620, L500.4050, L501.4020, L100.0100 ####[facility] [address] [place], [address] Glucose [Mass/Vol] 116 mg/dL High 74-106 [facility] Comment on above: Order Comment: 'TROP ' Serial specimen #1, #2 or #3: 1 Result Comment: Fast ing Glucose result from 100 to 125 mg/dLsuggests IMPAIRED HOMEOSTASIS per A.D.A. criteria. Performed By: #### L 503.6620, L500.4050, L501.4020, L100.0100 ####[facility] [address] [place], [address] Potassium [Moles/Vol] 4.9 mmol/L Normal 3.5-5.1 [facility] Comment on above: Order Comment: 'TROP ' Serial specimen #1, #2 or #3: 1 Performed By: #### L 503.6620, L500.4050, L501.4020, L100.0100 ####[facility] [address] [place], [address] Sodium [Moles/Vol] 141 mmol/L Normal 136-145 [facility] Comment on above: Order Comment: 'TROP ' Serial specimen #1, #2 or #3: 1 Performed By: #### L 503.6620, L500.4050, L501.4020, L100.0100 ####[facility] [address] [place], [address] T PROT 6.8 g/dL Normal 6.4-8.2 [facility] Comment on above: Order Comment: 'TROP ' Serial specimen #1, #2 or #3: 1 Performed By: #### L 503.6620, L500.4050, L501.4020, L100.0100 ####[facility] [address] [place], [address] Urea nitrogen [Mass/Vol] 53 mg/dL High 7-18 [facility] Comment on above: Order Comment: 'TROP ' Serial specimen #1, #2 or #3: 1 Performed By: #### L 503.6620, L500.4050, L501.4020, L100.0100 ####[facility] [address] [place], [address] Emergency Department Summary on 01-05-2024 Emergency Department Summary Normal [facility] H AND P Exam - Hospitaliston 01-05-2024 H&P Exam - Hospitalist Normal [facility] HH, Hemoglobin AND Hematocri ton 01-05-2024 Hematocrit (Bld) [Volume fraction] 38.3 % Low 40-54 [facility] Comment on above: Performed By: #### L 100.0600 ####[facility] [address] [place], [address] Hemoglobin (Bld) [Mass/Vol] 12.8 g/dL Low 13.0-16.5 [facility] Comment on above: Performed By: #### L 100.0600 ####[facility] [address] [place], [address] L501.4020on 01-05-2024 TROPONIN-I HS 6 pg/mL Normal 3.0-78.0 [facility] Comment on above: Order Comment: 'TROP ' Serial specimen #1, #2 or #3: 1 Result Comment: Plea se Note: New Test Units and Gender Specific Reference Ranges. For more information see Policy Stat Procedure [place] High Sensitivity Troponin (TNIH) and attachments. Performed By: #### L 503.6620, L500.4050, L501.4020, L100.0100 ####[facility] [address] [place], [address] Magnesiumon 01-05-2024 Magnesium [Mass/Vol] 2.6 mg/dL Normal 1.6-2.6 [facility] Comment on above: Performed By: #### L 501.2300, L501.5200 ####[facility] [address] [place], [address] Osmolality, Urineon 01-05-20 24 OSMOLALITY,UR 451 mOsm/KG Normal [facility] Comment on above: Result Comment: Norm al Urine Reference Ranges Random: 50 - 1200 mOsm/kg H20 depending on fluid intake Random: >850 mOsm/kg after 12 hour fluid restriction 24 hour: 300 - 900 mOsm/kg H2O Performed By: #### L 501.7400 ####[facility] [address] [place], [address] Phosphoruson 01-05-2024 Phosphate [Mass/Vol] 4.5 mg/dL Normal 2.5-4.9 [facility] Comment on above: Performed By: #### L 501.2300, L501.5200 ####[facility] [address] [place], [address] Protein+Creatinine Ratio,Uri neon 01-05-2024 PROT:CRE RATIO 197 mg/g CRE Normal 0-200 [facility] Comment on above: Performed By: #### L 501.0900 ####[facility] [address] [place], [address] Protein (U) [Mass/Vol] 13.5 mg/dL High <11.9 [facility] Comment on above: Performed By: #### L 501.0900 ####[facility] [address] [place], [address] UR CREAT 68.70 mg/dL Normal NO RANGE EST. [facility] Comment on above: Performed By: #### L 501.0900 ####[facility] [address] [place], [address] Uric Acidon 01-05-2024 URIC 10.3 mg/dL High 3.5-7.2 [facility] Comment on above: Result Comment: The drugs N-Acetylcysteine and Metamizole may falselydepress this assay. Performed By: #### L 501.1400, L501.3620 ####[facility] [address] [place], [address] Urinalysis, Completeon 01-04 BACTERIA RARE Normal None Seen [facility] Comment on above: Order Comment: CLEAN CATCH Performed By: #### L 400.0001 ####[facility] [address] [place], [address] CAST,HYALINE 0-5 SEEN Normal 0-5 [facility] Comment on above: Order Comment: CLEAN CATCH Performed By: #### L 400.0001 ####[facility] [address] [place], [address] EPI,SQUAMOUS 0-5 SEEN Normal 0-5 [facility] Comment on above: Order Comment: CLEAN CATCH Performed By: #### L 400.0001 ####[facility] [address] [place], [address] Mucus Ql (Urine sed) 1+ /hpf Normal [facility] Comment on above: Order Comment: CLEAN CATCH Performed By: #### L 400.0001 ####[facility] [address] [place], [address] RBC 25-50 SEEN Normal 0-5 [facility] Comment on above: Order Comment: CLEAN CATCH Performed By: #### L 400.0001 ####[facility] [address] [place], [address] WBC 0-5 SEEN Normal 0-5 [facility] Comment on above: Order Comment: CLEAN CATCH Performed By: #### L 400.0001 ####[facility] [address] [place], [address] Venous Duplex US - Nikita Extre mon 01-05-2024 Venous Duplex US - Nikita Extrem Normal [facility] BNP,B-Type NATRIURETIC PEPTI Britt 12-31-2023 Natriuretic peptide B (Bld) [Mass/Vol] 178.4 pg/mL High 0-100 [facility] Comment on above: Order Comment: PER P T-TO DO ALL TESTS FOR BRIDGES Performed By: #### L 503.6620, L500.4100, L100.0100, L500.2500, L500.3400 ####[facility] [address] [place], [address] Basic Metabolic Profile (BMP )on 12-31-2023 BUN/CRE 22.0 RATIO High 10-20 [facility] Comment on above: Order Comment: PER P T-TO DO ALL TESTS FOR BRIDGES Performed By: #### L 503.6620, L500.4100, L100.0100, L500.2500, L500.3400 ####[facility] [address] [place], [address] CA,Total 8.9 mg/dL Normal 8.5-10.1 [facility] Comment on above: Order Comment: PER P T-TO DO ALL TESTS FOR BRIDGES Performed By: #### L 503.6620, L500.4100, L100.0100, L500.2500, L500.3400 ####[facility] [address] [place], [address] Chloride [Moles/Vol] 115 mmol/L High 98-107 [facility] Comment on above: Order Comment: PER P T-TO DO ALL TESTS FOR CYRUS Performed By: #### L 503.6620, L500.4100, L100.0100, L500.2500, L500.3400 ####[facility] [address] [place], [address] CO2 [Moles/Vol] 25.0 mmol/L Normal 21.0-32.0 [facility] Comment on above: Order Comment: PER P T-TO DO ALL TESTS FOR CYRUS Performed By: #### L 503.6620, L500.4100, L100.0100, L500.2500, L500.3400 ####[facility] [address] [place], [address] Creatinine [Mass/Vol] 1.27 mg/dL Normal 0.70-1.30 [facility] Comment on above: Order Comment: PER P T-TO DO ALL TESTS FOR CYRUS Result Comment: The validity of the calculated GFR GFRAA in patients over70 years has not been determined. Clinical correlation isessential. Performed By: #### L 503.6620, L500.4100, L100.0100, L500.2500, L500.3400 ####[facility] [address] [place], [address] EST GFR - AA 70 mL/min Normal >60 [facility] Comment on above: Order Comment: PER P T-TO DO ALL TESTS FOR CYRUS Result Comment: Afri can Mozambican GFR Calc Performed By: #### L 503.6620, L500.4100, L100.0100, L500.2500, L500.3400 ####[facility] [address] [place], [address] GAP 3 Low 5-15 [facility] Comment on above: Order Comment: PER P T-TO DO ALL TESTS FOR CYRUS Performed By: #### L 503.6620, L500.4100, L100.0100, L500.2500, L500.3400 ####[facility] [address] [place], [address] GFR/1.73 sq M.predicted among non-blacks MDRD (S/P/Bld) [Vol rate/Area] 58 mL/min/{1.73_m2} Low >60 [facility] Comment on above: Order Comment: PER P T-TO DO ALL TESTS FOR CYRUS Result Comment: Non- GFR Calc Performed By: #### L 503.6620, L500.4100, L100.0100, L500.2500, L500.3400 ####[facility] [address] [place], [address] Glucose [Mass/Vol] 92 mg/dL Normal 74-106 [facility] Comment on above: Order Comment: PER P T-TO DO ALL TESTS FOR CYRUS Performed By: #### L 503.6620, L500.4100, L100.0100, L500.2500, L500.3400 ####[facility] [address] [place], [address] Potassium [Moles/Vol] 4.7 mmol/L Normal 3.5-5.1 [facility] Comment on above: Order Comment: PER P T-TO DO ALL TESTS FOR BRIDGES Performed By: #### L 503.6620, L500.4100, L100.0100, L500.2500, L500.3400 ####[facility] [address] [place], [address] Sodium [Moles/Vol] 143 mmol/L Normal 136-145 [facility] Comment on above: Order Comment: PER P T-TO DO ALL TESTS FOR BRIDGES Performed By: #### L 503.6620, L500.4100, L100.0100, L500.2500, L500.3400 ####[facility] [address] [place], [address] Urea nitrogen [Mass/Vol] 28 mg/dL High 7-18 [facility] Comment on above: Order Comment: PER P T-TO DO ALL TESTS FOR BRIDGES Performed By: #### L 503.6620, L500.4100, L100.0100, L500.2500, L500.3400 ####[facility] [address] [place], [address] CBC W/Diff, Automatedon 08-0 -2023 Absolute Lymph 1.20 X10 3/uL Normal 0.83-4.51 [facility] Comment on above: Order Comment: PER P T-TO DO ALL TESTS FOR BRIDGES Performed By: #### L 503.6620, L500.4100, L100.0100, L500.2500, L500.3400 ####[facility] [address] [place], [address] Absolute Neut 7.1 X10 3/uL Normal 2.0-7.7 [facility] Comment on above: Order Comment: PER P T-TO DO ALL TESTS FOR BRIDGES Performed By: #### L 503.6620, L500.4100, L100.0100, L500.2500, L500.3400 ####[facility] [address] [place], [address] Basophils/100 WBC (Bld) 0.3 % Normal 0-1 [facility] Comment on above: Order Comment: PER P T-TO DO ALL TESTS FOR BRIDGES Performed By: #### L 503.6620, L500.4100, L100.0100, L500.2500, L500.3400 ####[facility] [address] [place], [address] Eosinophils/100 WBC (Bld) 0.2 % Normal 0-5 [facility] Comment on above: Order Comment: PER P T-TO DO ALL TESTS FOR BRIDGES Performed By: #### L 503.6620, L500.4100, L100.0100, L500.2500, L500.3400 ####[facility] [address] [place], [address] Erythrocyte distribution width (RBC) [Ratio] 14.2 % Normal 11.6-14.6 [facility] Comment on above: Order Comment: PER P T-TO DO ALL TESTS FOR BRIDGES Performed By: #### L 503.6620, L500.4100, L100.0100, L500.2500, L500.3400 ####[facility] [address] [place], [address] Hematocrit (Bld) [Volume fraction] 43.5 % Normal 40-54 [facility] Comment on above: Order Comment: PER P T-TO DO ALL TESTS FOR BRIDGES Performed By: #### L 503.6620, L500.4100, L100.0100, L500.2500, L500.3400 ####[facility] [address] [place], [address] Hemoglobin (Bld) [Mass/Vol] 14.2 g/dL Normal 13.0-16.5 [facility] Comment on above: Order Comment: PER P T-TO DO ALL TESTS FOR BRIDGES Performed By: #### L 503.6620, L500.4100, L100.0100, L500.2500, L500.3400 ####[facility] [address] [place], [address] IG% 0.800 Normal 0.0-0.9 [facility] Comment on above: Order Comment: PER P T-TO DO ALL TESTS FOR BRIDGES Result Comment: IG% - Immature Granulocytes (promyelocytes, myelocytes andmetamyelocytes) > 1% indicates that a LEFT SHIFT is Present. Performed By: #### L 503.6620, L500.4100, L100.0100, L500.2500, L500.3400 ####[facility] [address] [place], [address] Lymphocytes/100 WBC (Bld) 12.9 % Low 19-41 [facility] Comment on above: Order Comment: PER P T-TO DO ALL TESTS FOR BRIDGES Performed By: #### L 503.6620, L500.4100, L100.0100, L500.2500, L500.3400 ####[facility] [address] [place], [address] MCH (RBC) [Entitic mass] 31.3 pg Normal 27.0-32.0 [facility] Comment on above: Order Comment: PER P T-TO DO ALL TESTS FOR BRIDGES Performed By: #### L 503.6620, L500.4100, L100.0100, L500.2500, L500.3400 ####[facility] [address] [place], [address] MCHC (RBC) [Mass/Vol] 32.6 g/dL Normal 32-36 [facility] Comment on above: Order Comment: PER P T-TO DO ALL TESTS FOR BRIDGES Performed By: #### L 503.6620, L500.4100, L100.0100, L500.2500, L500.3400 ####[facility] [address] [place], [address] MCV (RBC) [Entitic vol] 96.0 fL High 80-94 [facility] Comment on above: Order Comment: PER P T-TO DO ALL TESTS FOR BRIDGES Performed By: #### L 503.6620, L500.4100, L100.0100, L500.2500, L500.3400 ####[facility] [address] [place], [address] Monocytes/100 WBC (Bld) 10.0 % Normal 0-10 [facility] Comment on above: Order Comment: PER P T-TO DO ALL TESTS FOR BRIDGES Performed By: #### L 503.6620, L500.4100, L100.0100, L500.2500, L500.3400 ####[facility] [address] [place], [address] Neutrophils/100 WBC (Bld) 75.8 % High 47-70 [facility] Comment on above: Order Comment: PER P T-TO DO ALL TESTS FOR BRIDGES Performed By: #### L 503.6620, L500.4100, L100.0100, L500.2500, L500.3400 ####[facility] [address] [place], [address] Nucleated RBC (Bld) [#/Vol] 0 10*3/uL Normal 0-5 [facility] Comment on above: Order Comment: PER P T-TO DO ALL TESTS FOR BRIDGES Performed By: #### L 503.6620, L500.4100, L100.0100, L500.2500, L500.3400 ####[facility] [address] [place], [address] Platelet mean volume (Bld) [Entitic vol] 9.4 fL Normal 6.2-12.0 [facility] Comment on above: Order Comment: PER P T-TO DO ALL TESTS FOR BRIDGES Performed By: #### L 503.6620, L500.4100, L100.0100, L500.2500, L500.3400 ####[facility] [address] [place], [address] Platelets (Bld) [#/Vol] 255 10*3/uL Normal 150-450 [facility] Comment on above: Order Comment: PER P T-TO DO ALL TESTS FOR BRIDGES Performed By: #### L 503.6620, L500.4100, L100.0100, L500.2500, L500.3400 ####[facility] [address] [place], [address] RBC (Bld) [#/Vol] 4.53 10*6/uL Low 4.6-6.2 [facility] Comment on above: Order Comment: PER P T-TO DO ALL TESTS FOR BRIDGES Performed By: #### L 503.6620, L500.4100, L100.0100, L500.2500, L500.3400 ####[facility] [address] [place], [address] RDW SD 49.7 fl High 35.1-43.9 [facility] Comment on above: Order Comment: PER P T-TO DO ALL TESTS FOR BRIDGES Performed By: #### L 503.6620, L500.4100, L100.0100, L500.2500, L500.3400 ####[facility] [address] [place], [address] WBC (Bld) [#/Vol] 9.3 10*3/uL Normal 4.4-11.0 [facility] Comment on above: Order Comment: PER P T-TO DO ALL TESTS FOR BRIDGES Performed By: #### L 503.6620, L500.4100, L100.0100, L500.2500, L500.3400 ####[facility] [address] [place], [address] Cardiology Visit Reporton Cardiology Visit Report Normal [facility] Chest PA and Lateralon 12-30 Chest PA and Lateral Normal [facility] Lipid Profileon 12-31-2023 Cholesterol [Mass/Vol] 259 mg/dL High 200 [facility] Comment on above: Order Comment: PER P T-TO DO ALL TESTS FOR BRIDGES Result Comment: <200 mg/dL Desirable 200-240 mg/dL Borderline >240 mg/dL High Risk Performed By: #### L 503.6620, L500.4100, L100.0100, L500.2500, L500.3400 ####[facility] [address] [place], [address] Cholesterol in HDL [Mass/Vol] 45 mg/dL Normal [facility] Comment on above: Order Comment: PER P T-TO DO ALL TESTS FOR CYRUS Result Comment: The drugs N-Acetylcysteine and Metamizole may falselydepress this assay. Reference Range HDL <40 mg/dL Low HDL Cholesterol HDL >or= 60 mg/dL High HDL Cholesterol Performed By: #### L 503.6620, L500.4100, L100.0100, L500.2500, L500.3400 ####[facility] [address] [place], [address] Cholesterol in LDL [Mass/Vol] 176 mg/dL High 0-130 [facility] Comment on above: Order Comment: PER P T-TO DO ALL TESTS FOR CYRUS Performed By: #### L 503.6620, L500.4100, L100.0100, L500.2500, L500.3400 ####[facility] [address] [place], [address] Cholesterol in VLDL [Mass/Vol] 38 mg/dL Normal 5-40 [facility] Comment on above: Order Comment: PER P T-TO DO ALL TESTS FOR CYRUS Performed By: #### L 503.6620, L500.4100, L100.0100, L500.2500, L500.3400 ####[facility] [address] [place], [address] Triglyceride [Mass/Vol] 192 mg/dL Normal [facility] Comment on above: Order Comment: PER P T-TO DO ALL TESTS FOR CYRUS Result Comment: The drugs N-Acetylcysteine and Metamizole may falselydepress this assay.Serum Triglycerides Reference Interval Normal <150 mg/dL Borderline high 150 - 199 mg/dL High 200 - 499 mg/dL Very High > or = 500 mg/dL Performed By: #### L 503.6620, L500.4100, L100.0100, L500.2500, L500.3400 ####[facility] [address] [place], [address] Liver Profileon 12-31-2023 Albumin [Mass/Vol] 3.4 g/dL Normal 3.2-5.0 [facility] Comment on above: Order Comment: PER P T-TO DO ALL TESTS FOR BRIDGES Performed By: #### L 503.6620, L500.4100, L100.0100, L500.2500, L500.3400 ####[facility] [address] [place], [address] ALK P 66 U/L Normal 45-117 [facility] Comment on above: Order Comment: PER P T-TO DO ALL TESTS FOR BRIDGES Performed By: #### L 503.6620, L500.4100, L100.0100, L500.2500, L500.3400 ####[facility] [address] [place], [address] ALT [Catalytic activity/Vol] 30 U/L Normal 16-61 [facility] Comment on above: Order Comment: PER P T-TO DO ALL TESTS FOR BRIDGES Performed By: #### L 503.6620, L500.4100, L100.0100, L500.2500, L500.3400 ####[facility] [address] [place], [address] AST [Catalytic activity/Vol] 15 U/L Normal 15-37 [facility] Comment on above: Order Comment: PER P T-TO DO ALL TESTS FOR BRIDGES Performed By: #### L 503.6620, L500.4100, L100.0100, L500.2500, L500.3400 ####[facility] [address] [place], [address] Bilirubin [Mass/Vol] 1.40 mg/dL High 0.20-1.00 [facility] Comment on above: Order Comment: PER P T-TO DO ALL TESTS FOR BRIDGES Result Comment: For patients on eltrombopag therapy, use of Dimension [place] TBIL is not recommended. Performed By: #### L 503.6620, L500.4100, L100.0100, L500.2500, L500.3400 ####[facility] [address] [place], [address] Bilirubin.direct [Mass/Vol] 0.22 mg/dL Normal 0.00-0.30 [facility] Comment on above: Order Comment: PER P T-TO DO ALL TESTS FOR BRIDGES Performed By: #### L 503.6620, L500.4100, L100.0100, L500.2500, L500.3400 ####[facility] [address] [place], [address] Globulin (S) [Mass/Vol] 3.1 g/dL Normal 2.2-4.2 [facility] Comment on above: Order Comment: PER P T-TO DO ALL TESTS FOR BRIDGES Performed By: #### L 503.6620, L500.4100, L100.0100, L500.2500, L500.3400 ####[facility] [address] [place], [address] T PROT 6.5 g/dL Normal 6.4-8.2 [facility] Comment on above: Order Comment: PER P T-TO DO ALL TESTS FOR BRIDGES Performed By: #### L 503.6620, L500.4100, L100.0100, L500.2500, L500.3400 ####[facility] [address] [place], [address] L/S Spine Bending Flex/[place] 12-30-2023 L/S Spine Bending Flex/Ext Normal [facility] Orthopedic Visit Reporton Orthopedic Visit Report Normal [facility] CBC W/Diff, Automatedon 12-01 Absolute Lymph 1.34 X10 3/uL Normal 0.83-4.51 [facility] Comment on above: Performed By: #### L 100.0100, L500.4050, L506.1000, L501.9520 ####[facility] [address] [place], [address] Absolute Neut 6.7 X10 3/uL Normal 2.0-7.7 [facility] Comment on above: Performed By: #### L 100.0100, L500.4050, L506.1000, L501.9520 ####[facility] [address] [place], [address] Basophils/100 WBC (Bld) 0.3 % Normal 0-1 [facility] Comment on above: Performed By: #### L 100.0100, L500.4050, L506.1000, L501.9520 ####[facility] [address] [place], [address] Eosinophils/100 WBC (Bld) 0.2 % Normal 0-5 [facility] Comment on above: Performed By: #### L 100.0100, L500.4050, L506.1000, L501.9520 ####[facility] [address] [place], [address] Erythrocyte distribution width (RBC) [Ratio] 13.8 % Normal 11.6-14.6 [facility] Comment on above: Performed By: #### L 100.0100, L500.4050, L506.1000, L501.9520 ####[facility] [address] [place], [address] Hematocrit (Bld) [Volume fraction] 41.2 % Normal 40-54 [facility] Comment on above: Performed By: #### L 100.0100, L500.4050, L506.1000, L501.9520 ####[facility] [address] [place], [address] Hemoglobin (Bld) [Mass/Vol] 13.6 g/dL Normal 13.0-16.5 [facility] Comment on above: Performed By: #### L 100.0100, L500.4050, L506.1000, L501.9520 ####[facility] [address] [place], [address] IG% 1.100 High 0.0-0.9 [facility] Comment on above: Result Comment: IG% - Immature Granulocytes (promyelocytes, myelocytes andmetamyelocytes) > 1% indicates that a LEFT SHIFT is Present. Performed By: #### L 100.0100, L500.4050, L506.1000, L501.9520 ####[facility] [address] [place], [address] Lymphocytes/100 WBC (Bld) 15.0 % Low 19-41 [facility] Comment on above: Performed By: #### L 100.0100, L500.4050, L506.1000, L501.9520 ####[facility] [address] [place], [address] MCH (RBC) [Entitic mass] 31.3 pg Normal 27.0-32.0 [facility] Comment on above: Performed By: #### L 100.0100, L500.4050, L506.1000, L501.9520 ####[facility] [address] [place], [address] MCHC (RBC) [Mass/Vol] 33.0 g/dL Normal 32-36 [facility] Comment on above: Performed By: #### L 100.0100, L500.4050, L506.1000, L501.9520 ####[facility] [address] [place], [address] MCV (RBC) [Entitic vol] 94.7 fL High 80-94 [facility] Comment on above: Performed By: #### L 100.0100, L500.4050, L506.1000, L501.9520 ####[facility] [address] [place], [address] Monocytes/100 WBC (Bld) 8.9 % Normal 0-10 [facility] Comment on above: Performed By: #### L 100.0100, L500.4050, L506.1000, L501.9520 ####[facility] [address] [place], [address] Neutrophils/100 WBC (Bld) 74.5 % High 47-70 [facility] Comment on above: Performed By: #### L 100.0100, L500.4050, L506.1000, L501.9520 ####[facility] [address] [place], [address] Nucleated RBC (Bld) [#/Vol] 0 10*3/uL Normal 0-5 [facility] Comment on above: Performed By: #### L 100.0100, L500.4050, L506.1000, L501.9520 ####[facility] [address] [place], [address] Platelet mean volume (Bld) [Entitic vol] 9.5 fL Normal 6.2-12.0 [facility] Comment on above: Performed By: #### L 100.0100, L500.4050, L506.1000, L501.9520 ####[facility] [address] [place], [address] Platelets (Bld) [#/Vol] 236 10*3/uL Normal 150-450 [facility] Comment on above: Performed By: #### L 100.0100, L500.4050, L506.1000, L501.9520 ####[facility] [address] [place], [address] RBC (Bld) [#/Vol] 4.35 10*6/uL Low 4.6-6.2 [facility] Comment on above: Performed By: #### L 100.0100, L500.4050, L506.1000, L501.9520 ####[facility] [address] [place], [address] RDW SD 47.7 fl High 35.1-43.9 [facility] Comment on above: Performed By: #### L 100.0100, L500.4050, L506.1000, L501.9520 ####[facility] [address] [place], [address] WBC (Bld) [#/Vol] 9.0 10*3/uL Normal 4.4-11.0 [facility] Comment on above: Performed By: #### L 100.0100, L500.4050, L506.1000, L501.9520 ####[facility] [address] [place], [address] Comprehensive [facility] 12-29-2023 Albumin [Mass/Vol] 3.2 g/dL Normal 3.2-5.0 [facility] Comment on above: Performed By: #### L 100.0100, L500.4050, L506.1000, L501.9520 ####[facility] [address] [place], [address] Albumin/Globulin [Mass ratio] 1.1 {ratio} Normal 0.9-2.4 [facility] Comment on above: Performed By: #### L 100.0100, L500.4050, L506.1000, L501.9520 ####[facility] [address] [place], [address] ALK P 60 U/L Normal 45-117 [facility] Comment on above: Performed By: #### L 100.0100, L500.4050, L506.1000, L501.9520 ####[facility] [address] [place], [address] ALT [Catalytic activity/Vol] 26 U/L Normal 16-61 [facility] Comment on above: Performed By: #### L 100.0100, L500.4050, L506.1000, L501.9520 ####[facility] [address] [place], [address] AST [Catalytic activity/Vol] 18 U/L Normal 15-37 [facility] Comment on above: Performed By: #### L 100.0100, L500.4050, L506.1000, L501.9520 ####[facility] [address] [place], [address] Bilirubin [Mass/Vol] 1.40 mg/dL High 0.20-1.00 [facility] Comment on above: Result Comment: For patients on eltrombopag therapy, use of Dimension [place] TBIL is not recommended. Performed By: #### L 100.0100, L500.4050, L506.1000, L501.9520 ####[facility] [address] [place], [address] BUN/CRE 22.4 RATIO High 10-20 [facility] Comment on above: Performed By: #### L 100.0100, L500.4050, L506.1000, L501.9520 ####[facility] [address] [place], [address] CA,Total 8.8 mg/dL Normal 8.5-10.1 [facility] Comment on above: Performed By: #### L 100.0100, L500.4050, L506.1000, L501.9520 ####[facility] [address] [place], [address] Chloride [Moles/Vol] 110 mmol/L High 98-107 [facility] Comment on above: Performed By: #### L 100.0100, L500.4050, L506.1000, L501.9520 ####[facility] [address] [place], [address] CO2 [Moles/Vol] 24.0 mmol/L Normal 21.0-32.0 [facility] Comment on above: Performed By: #### L 100.0100, L500.4050, L506.1000, L501.9520 ####[facility] [address] [place], [address] Creatinine [Mass/Vol] 1.34 mg/dL High 0.70-1.30 [facility] Comment on above: Result Comment: The validity of the calculated GFR GFRAA in patients over70 years has not been determined. Clinical correlation isessential. Performed By: #### L 100.0100, L500.4050, L506.1000, L501.9520 ####[facility] [address] [place], [address] EST GFR - AA 66 mL/min Normal >60 [facility] Comment on above: Result Comment: Afri can [place] GFR Calc Performed By: #### L 100.0100, L500.4050, L506.1000, L501.9520 ####[facility] [address] [place], [address] GAP 6 Normal 5-15 [facility] Comment on above: Performed By: #### L 100.0100, L500.4050, L506.1000, L501.9520 ####[facility] [address] [place], [address] GFR/1.73 sq M.predicted among non-blacks MDRD (S/P/Bld) [Vol rate/Area] 54 mL/min/{1.73_m2} Low >60 [facility] Comment on above: Result Comment: Non- GFR Calc Performed By: #### L 100.0100, L500.4050, L506.1000, L501.9520 ####[facility] [address] [place], [address] Globulin (S) [Mass/Vol] 3.0 g/dL Normal 2.2-4.2 [facility] Comment on above: Performed By: #### L 100.0100, L500.4050, L506.1000, L501.9520 ####[facility] [address] [place], [address] Glucose [Mass/Vol] 94 mg/dL Normal 74-106 [facility] Comment on above: Performed By: #### L 100.0100, L500.4050, L506.1000, L501.9520 ####[facility] [address] [place], [address] Potassium [Moles/Vol] 4.4 mmol/L Normal 3.5-5.1 [facility] Comment on above: Performed By: #### L 100.0100, L500.4050, L506.1000, L501.9520 ####[facility] [address] [place], [address] Sodium [Moles/Vol] 140 mmol/L Normal 136-145 [facility] Comment on above: Performed By: #### L 100.0100, L500.4050, L506.1000, L501.9520 ####[facility] [address] [place], [address] T PROT 6.2 g/dL Low 6.4-8.2 [facility] Comment on above: Performed By: #### L 100.0100, L500.4050, L506.1000, L501.9520 ####[facility] [address] [place], [address] Urea nitrogen [Mass/Vol] 30 mg/dL High 7-18 [facility] Comment on above: Performed By: #### L 100.0100, L500.4050, L506.1000, L501.9520 ####[facility] [address] [place], [address] Thyroid Stim Hormone (TSH)on 12-29-2023 TSH 0.94 uIU/mL Normal 0.358-3.74 [facility] Comment on above: Performed By: #### L 100.0100, L500.4050, L506.1000, L501.9520 ####[facility] [address] [place], [address] Vitamin D,25 Hydroxyon 12-28 Vitamin D 25-OH 66.2 ng/mL Normal [facility] Comment on above: Result Comment: Maya min D 25(OH) Status Range Deficiency <20 ng/mL (50nmol/L) Insufficiency 20 - 30 ng/mL (50 - 75 nmol/L) Sufficiency 30 - 100 ng/mL (75 - 250 nmol/L) Toxicity >100 ng/mL (>250 nmol/L) Performed By: #### L 100.0100, L500.4050, L506.1000, L501.9520 ####[facility] [address] [place], [address] M100.678on 12-25-2023 M100.678 Normal Reference Ran ge = Negative FLUABV+SARS-CoV-2+RSV Pnl Resp [place]+probe GeneXpert Instrument, PCR method SARS-CoV-2 (COVID 19) Negative INFLUENZA A Negative INFLUENZA B Negative RSV PCR Negative Normal [facility] Comment on above: Performed By: #### M 100.678 ####[facility] [address] [facility] [place], [address] Urine Cultureon 12-17-2023 [facility] Below infection leve l. Gram negative prasanth [place] Count <1000 Normal [facility] Comment on above: Performed By: #### M 100.2200 ####[facility] [address] [facility] [place], [address] Urine Cultureon 12-11-2023 [facility] Normal [facility] Comment on above: Performed By: #### M 100.2200 ####[facility] [address] [place], [address] Dexa Bone Density Studyon Dexa Bone Density Study Normal W [facility] [facility] BNP,B-Type NATRIURETIC PEPTI Britt 12-09-2023 Natriuretic peptide B (Bld) [Mass/Vol] 203.9 pg/mL High 0-100 [facility] Comment on above: Performed By: #### L 500.2500, L100.0100, L503.6620 ####[facility] [address] [place], [address] Basic Metabolic Profile (BMP )on 12-09-2023 BUN/CRE 30.2 RATIO High 10-20 [facility] Comment on above: Performed By: #### L 500.2500, L100.0100, [id number] ####[facility] [address] [place], [address] CA,Total 9.1 mg/dL Normal 8.5-10.1 [facility] Comment on above: Performed By: #### L 500.2500, L100.0100, [id number] ####[facility] [address] [place], [address] Chloride [Moles/Vol] 110 mmol/L High 98-107 [facility] Comment on above: Performed By: #### L 500.2500, L100.0100, [id number] ####[facility] [address] [place], [address] CO2 [Moles/Vol] 26.0 mmol/L Normal 21.0-32.0 [facility] Comment on above: Performed By: #### L 500.2500, L100.0100, [id number] ####[facility] [address] [place], [address] Creatinine [Mass/Vol] 1.29 mg/dL Normal 0.70-1.30 [facility] Comment on above: Result Comment: The validity of the calculated GFR GFRAA in patients over70 years has not been determined. Clinical correlation isessential. Performed By: #### L 500.2500, L100.0100, [id number] ####[facility] [address] [place], [address] EST GFR - AA 69 mL/min Normal >60 [facility] Comment on above: Result Comment: Afri can Mozambican GFR Calc Performed By: #### L 500.2500, L100.0100, [id number] ####[facility] [address] [place], [address] GAP 5 Normal 5-15 [facility] Comment on above: Performed By: #### L 500.2500, L100.0100, [id number] ####[facility] [address] [place], [address] GFR/1.73 sq M.predicted among non-blacks MDRD (S/P/Bld) [Vol rate/Area] 57 mL/min/{1.73_m2} Low >60 [facility] Comment on above: Result Comment: Non- GFR Calc Performed By: #### L 500.2500, L100.0100, [id number] ####[facility] [address] [place], [address] Glucose [Mass/Vol] 102 mg/dL Normal 74-106 [facility] Comment on above: Result Comment: Fast ing Glucose result from 100 to 125 mg/dLsuggests IMPAIRED HOMEOSTASIS per A.D.A. criteria. Performed By: #### L 500.2500, L100.0100, [id number] ####[facility] [address] [place], [address] Potassium [Moles/Vol] 4.5 mmol/L Normal 3.5-5.1 [facility] Comment on above: Performed By: #### L 500.2500, L100.0100, [id number] ####[facility] [address] [place], [address] Sodium [Moles/Vol] 141 mmol/L Normal 136-145 [facility] Comment on above: Performed By: #### L 500.2500, L100.0100, [id number] ####[facility] [address] [place], [address] Urea nitrogen [Mass/Vol] 39 mg/dL High 7-18 [facility] Comment on above: Performed By: #### L 500.2500, L100.0100, [id number] ####[facility] [address] [place], [address] CBC W/Diff, Automatedon 07- 0-2024 Absolute Lymph 1.01 X10 3/uL Normal 0.83-4.51 [facility] Comment on above: Performed By: #### L 500.2500, L100.0100, [id number] ####[facility] [address] [place], [address] Absolute Neut 5.3 X10 3/uL Normal 2.0-7.7 [facility] Comment on above: Performed By: #### L 500.2500, L100.0100, [id number] ####[facility] [address] [place], [address] Basophils/100 WBC (Bld) 0.3 % Normal 0-1 [facility] Comment on above: Performed By: #### L 500.2500, L100.0100, [id number] ####[facility] [address] [place], [address] Eosinophils/100 WBC (Bld) 0.6 % Normal 0-5 [facility] Comment on above: Performed By: #### L 500.2500, L100.0100, [id number] ####[facility] [address] [place], [address] Erythrocyte distribution width (RBC) [Ratio] 13.6 % Normal 11.6-14.6 [facility] Comment on above: Performed By: #### L 500.2500, L100.0100, [id number] ####[facility] [address] [place], [address] Hematocrit (Bld) [Volume fraction] 41.8 % Normal 40-54 [facility] Comment on above: Performed By: #### L 500.2500, L100.0100, [id number] ####[facility] [address] [place], [address] Hemoglobin (Bld) [Mass/Vol] 13.8 g/dL Normal 13.0-16.5 [facility] Comment on above: Performed By: #### L 500.2500, L100.0100, [id number] ####[facility] [address] [place], [address] IG% 0.600 Normal 0.0-0.9 [facility] Comment on above: Result Comment: IG% - Immature Granulocytes (promyelocytes, myelocytes andmetamyelocytes) > 1% indicates that a LEFT SHIFT is Present. Performed By: #### L 500.2500, L100.0100, [id number] ####[facility] [address] [place], [address] Lymphocytes/100 WBC (Bld) 14.2 % Low 19-41 [facility] Comment on above: Performed By: #### L 500.2500, L100.0100, [id number] ####[facility] [address] [place], [address] MCH (RBC) [Entitic mass] 31.0 pg Normal 27.0-32.0 [facility] Comment on above: Performed By: #### L 500.2500, L100.0100, [id number] ####[facility] [address] [place], [address] MCHC (RBC) [Mass/Vol] 33.0 g/dL Normal 32-36 [facility] Comment on above: Performed By: #### L 500.2500, L100.0100, [id number] ####[facility] [address] [place], [address] MCV (RBC) [Entitic vol] 93.9 fL Normal 80-94 [facility] Comment on above: Performed By: #### L 500.2500, L100.0100, [id number] ####[facility] [address] [place], [address] Monocytes/100 WBC (Bld) 9.7 % Normal 0-10 [facility] Comment on above: Performed By: #### L 500.2500, L100.0100, [id number] ####[facility] [address] [place], [address] Neutrophils/100 WBC (Bld) 74.6 % High 47-70 [facility] Comment on above: Performed By: #### L 500.2500, L100.0100, [id number] ####[facility] [address] [place], [address] Nucleated RBC (Bld) [#/Vol] 0 10*3/uL Normal 0-5 [facility] Comment on above: Performed By: #### L 500.2500, L100.0100, [id number] ####[facility] [address] [place], [address] Platelet mean volume (Bld) [Entitic vol] 9.5 fL Normal 6.2-12.0 [facility] Comment on above: Performed By: #### L 500.2500, L100.0100, [id number] ####[facility] [address] [place], [address] Platelets (Bld) [#/Vol] 260 10*3/uL Normal 150-450 [facility] Comment on above: Performed By: #### L 500.2500, L100.0100, [id number] ####[facility] [address] [place], [address] RBC (Bld) [#/Vol] 4.45 10*6/uL Low 4.6-6.2 [facility] Comment on above: Performed By: #### L 500.2500, L100.0100, [id number] ####[facility] [address] [place], [address] RDW SD 46.5 fl High 35.1-43.9 [facility] Comment on above: Performed By: #### L 500.2500, L100.0100, [id number] ####[facility] [address] [place], [address] WBC (Bld) [#/Vol] 7.1 10*3/uL Normal 4.4-11.0 [facility] Comment on above: Performed By: #### L 500.2500, L100.0100, [id number] ####[facility] [address] [place], [address] Spine Lumbar (Routine)on Spine Lumbar (Routine) Normal [facility] Absolute lymphocyte countOrd ered By: Jose Hooks on 10-06-2023 Lymphocytes Auto (Unsp spec) [#/Vol] 1.41 10*3/uL 0.83-4.51 [facility] Automated lymphocyte count a s percentage of total leukocytesOrdered By: Jose Hooks on 10-06-2023 Lymphocytes/100 WBC Auto (Unsp spec) 17.4 % 19-41 [facility] Basophil percentageOrdered B y: Jose Hooks on 10-06-2023 Basophils/100 WBC (Bld) 1.0 % 0-1 [facility] Chloride [Moles/Vol] 107 mmol/L 98-107 [facility] Eosinophils/100 WBC (Bld) 2.0 % 0-5 [facility] Glucose [Mass/Vol] 92 mg/dL 74-106 [facility] Hemoglobin (Bld) [Mass/Vol] 14.1 g/dL 13.0-16.5 [facility] Monocytes/100 WBC (Bld) 8.5 % 0-10 [facility] Neutrophils (Bld) [#/Vol] 5.6 10*3/uL 2.0-7.7 [facility] Neutrophils/100 WBC (Bld) 68.6 % 47-70 [facility] Potassium [Moles/Vol] 3.8 mmol/L 3.5-5.1 [facility] Sodium [Moles/Vol] 139 mmol/L 136-145 [facility] WBC (Bld) [#/Vol] 8.1 10*3/uL 4.4-11.0 [facility] Culture, urineOrdered By: Xu Hooks on 10-06-2023 Bacteria identified Cx Nom (U) Culture exhibits no growth. [facility] Determination of erythrocyte mean corpuscular volume (MCV)Ordered By: Jose Hooks on 10-06-2023 MCV (RBC) [Entitic vol] 93.8 fL 80-94 [facility] Erythrocyte distribution wid th ratioOrdered By: Jose Hooks on 10-06-2023 Erythrocyte distribution width (RBC) [Ratio] 13.0 % 11.6-14.6 [facility] Erythrocyte distribution wid th standard deviationOrdered By: Jose Hooks on 10-06-2023 Erythrocyte distribution width (RBC) [Entitic vol] 44.3 fL 35.1-43.9 [facility] Hematocrit Auto (Bld) [Volum e fraction]Ordered By: Jose Hooks on 10-06-2023 Hematocrit (Bld) [Volume fraction] 43.9 % 40-54 [facility] Immature granulocytes/100 WB C Auto (Bld)Ordered By: Jose Hooks on 10-06-2023 Immature granulocytes/100 WBC (Bld) 2.500 % 0.0-0.9 [facility] Comment on above: IG% - Immature Granu locytes (promyelocytes, myelocytes and metamyelocytes) > 1% indicates that a LEFT SHIFT is Present. Laboratory - Chemistry and C hemistry - challengeOrdered By: Jose Hooks on 10-06-2023 CO2 [Moles/Vol] 27.0 mmol/L 21.0-32.0 [facility] Urea nitrogen/Creatinine [Mass ratio] 17.7 mg/mg 10-20 [facility] Laboratory - Hematology and Cell countsOrdered By: Jose Hooks on 10-06-2023 MCH (RBC) [Entitic mass] 30.1 pg 27.0-32.0 [facility] MCHC (RBC) [Mass/Vol] 32.1 g/dL 32-36 [facility] Nucleated RBC/100 WBC (Bld) [Ratio] 0 % 0-5 [facility] Platelet mean volume (Bld) [Entitic vol] 9.8 fL 6.2-12.0 [facility] Platelets (Bld) [#/Vol] 316 10*3/uL 150-450 [facility] No Panel InformationOrdered By: Jose Hooks on 10-06-2023 Estimated GFR (MDRD) Amer 68 mL/min >60 [facility] Comment on above: GFR Calc Estimated GFR (MDRD) Non-Af Amer 56 mL/min >60 [facility] Comment on above: Non- GFR Calc RBC Auto (Bld) [#/Vol]Ordere d By: Jose Hooks on 10-06-2023 RBC (Bld) [#/Vol] 4.68 10*6/uL 4.6-6.2 [facility] Serum or plasma calcium ambar urement (mass/volume)Ordered By: Jose Hooks on 10-06-2023 Calcium [Mass/Vol] 8.9 mg/dL 8.5-10.1 [facility] Serum or plasma creatinine m easurement (mass/volume)Ordered By: Jose Hooks on 10-06-2023 Creatinine [Mass/Vol] 1.30 mg/dL 0.70-1.30 [facility] Comment on above: The validity of the calculated GFR & GFRAA in patients over 70 years has not been determined. Clinical correlation is essential. Serum or plasma urea nitroge n measurement (mass/volume)Ordered By: Jose Hooks on 10-06-2023 Urea nitrogen [Mass/Vol] 23 mg/dL 7-18 [facility] Thin prep Papanicolaou smear with manual screeningOrdered By: Jose Hooks on 10-06-2023 Thin prep Papanicolaou smear with manual screening 5 5-15 [facility] Basophil percentageOrdered B y: Jay Wright on 10-03-2023 Chloride [Moles/Vol] 114 mmol/L 98-107 [facility] Glucose [Mass/Vol] 78 mg/dL 74-106 [facility] Hemoglobin (Bld) [Mass/Vol] 11.8 g/dL 13.0-16.5 [facility] Potassium [Moles/Vol] 3.7 mmol/L 3.5-5.1 [facility] Sodium [Moles/Vol] 144 mmol/L 136-145 [facility] WBC (Bld) [#/Vol] 8.2 10*3/uL 4.4-11.0 [facility] Determination of erythrocyte mean corpuscular volume (MCV)Ordered By: Jay Wright on 10-03-2023 MCV (RBC) [Entitic vol] 95.5 fL 80-94 [facility] Erythrocyte distribution wid th ratioOrdered By: Jay Wright on 10-03-2023 Erythrocyte distribution width (RBC) [Ratio] 13.1 % 11.6-14.6 [facility] Erythrocyte distribution wid th standard deviationOrdered By: Jay Wright on 10-03-2023 Erythrocyte distribution width (RBC) [Entitic vol] 45.5 fL 35.1-43.9 [facility] Hematocrit Auto (Bld) [Volum e fraction]Ordered By: Jay Wright on 10-03-2023 Hematocrit (Bld) [Volume fraction] 36.2 % 40-54 [facility] Laboratory - Chemistry and C hemistry - challengeOrdered By: Jay Wright on 10-03-2023 CO2 [Moles/Vol] 27.0 mmol/L 21.0-32.0 [facility] Urea nitrogen/Creatinine [Mass ratio] 15.6 mg/mg 10-20 [facility] Laboratory - Hematology and Cell countsOrdered By: Jay Wright on 10-03-2023 MCH (RBC) [Entitic mass] 31.1 pg 27.0-32.0 [facility] MCHC (RBC) [Mass/Vol] 32.6 g/dL 32-36 [facility] Platelet mean volume (Bld) [Entitic vol] 9.7 fL 6.2-12.0 [facility] Platelets (Bld) [#/Vol] 208 10*3/uL 150-450 [facility] No Panel InformationOrdered By: Jay Wright on 10-03-2023 Estimated Creatinine Clearance Calc 56.61 ml/min [facility] Estimated GFR (MDRD) Amer 84 mL/min >60 [facility] Comment on above: GFR Calc Estimated GFR (MDRD) Non-Af Amer 69 mL/min >60 [facility] Comment on above: Non- GFR Calc RBC Auto (Bld) [#/Vol]Ordere d By: Jay Wright on 10-03-2023 RBC (Bld) [#/Vol] 3.79 10*6/uL 4.6-6.2 [facility] Serum or plasma calcium ambar urement (mass/volume)Ordered By: Jay Wright on 10-03-2023 Calcium [Mass/Vol] 8.1 mg/dL 8.5-10.1 [facility] Serum or plasma creatinine m easurement (mass/volume)Ordered By: Jay Wright on 10-03-2023 Creatinine [Mass/Vol] 1.09 mg/dL 0.70-1.30 [facility] Comment on above: The validity of the calculated GFR & GFRAA in patients over 70 years has not been determined. Clinical correlation is essential. Serum or plasma urea nitroge n measurement (mass/volume)Ordered By: Jay Wright on 10-03-2023 Urea nitrogen [Mass/Vol] 17 mg/dL 7-18 [facility] Thin prep Papanicolaou smear with manual screeningOrdered By: Jay Wright on 10-03-2023 Thin prep Papanicolaou smear with manual screening 3 5-15 [facility] Basophil percentageOrdered B y: Jay Wright on 10-02-2023 Bilirubin [Mass/Vol] 0.70 mg/dL 0.20-1.00 [facility] Comment on above: For patients on eltr ombopag therapy, use of Dimension [place] TBIL is not recommended. Protein [Mass/Vol] 5.1 g/dL 6.4-8.2 [facility] Direct bilirubinOrdered By: Jay Wright on 10-02-2023 Bilirubin.direct [Mass/Vol] 0.21 mg/dL 0.00-0.30 [facility] Laboratory - Chemistry and C hemistry - challengeOrdered By: Jay Wright on 10-02-2023 ALP [Catalytic activity/Vol] 153 U/L 45-117 [facility] ALT [Catalytic activity/Vol] 110 U/L 16-61 [facility] Globulin (S) [Mass/Vol] 3.0 g/dL 2.2-4.2 [facility] Thin prep Papanicolaou smear with manual screeningOrdered By: Jay Wright on 10-02-2023 Thin prep Papanicolaou smear with manual screening 2.1 g/dL 3.2-5.0 [facility] Thin prep Papanicolaou smear with manual screening 74 U/L 15-37 [facility] Absolute lymphocyte countOrd ered By: Galilea Moncada on 10-01-2023 Lymphocytes Auto (Unsp spec) [#/Vol] 0.71 10*3/uL 0.83-4.51 [facility] Automated lymphocyte count a s percentage of total leukocytesOrdered By: Galilea Moncada on 10-01-2023 Lymphocytes/100 WBC Auto (Unsp spec) 3.0 % 19-41 [facility] Basophil percentageOrdered B y: Jay Wright on 10-01-2023 Lactate [Moles/Vol] 2.4 mmol/L 0.4-2.0 [facility] Comment on above: Critical Result(s) C alled at: 13:55:22 10/01/2023 by: BINDU BISHOP to Artemio Clement. Results read back by same. Basophil percentageOrdered B y: Galilea Moncada on 10-01-2023 Basophil percentage 4.4 mg/dL 2.5-4.9 [facility] Basophils/100 WBC (Bld) 0.3 % 0-1 [facility] Eosinophils/100 WBC (Bld) 0.0 % 0-5 [facility] Monocytes/100 WBC (Bld) 5.8 % 0-10 [facility] Neutrophils (Bld) [#/Vol] 20.9 10*3/uL 2.0-7.7 [facility] Neutrophils/100 WBC (Bld) 89.5 % 47-70 [facility] Blood manual differential co mment interpretation (narrative result)Ordered By: Galilea Moncada on 10-01-2023 Manual differential comment Joe (Bld) [Interp] SCANNED [facility] Comment on above: NEUTROPHILLIA PRESEN T Immature granulocytes/100 WB C Auto (Bld)Ordered By: Galilea Moncada on 10-01-2023 Immature granulocytes/100 WBC (Bld) 1.400 % 0.0-0.9 [facility] Comment on above: IG% - Immature Granu locytes (promyelocytes, myelocytes and metamyelocytes) > 1% indicates that a LEFT SHIFT is Present. Laboratory - Chemistry and C hemistry - challengeOrdered By: Galilea Moncada on 10-01-2023 Albumin/Globulin [Mass ratio] 0.8 {ratio} 0.9-2.4 [facility] Magnesium [Mass/Vol] 1.9 mg/dL 1.6-2.6 [facility] Laboratory - Hematology and Cell countsOrdered By: Galilea Moncada on 10-01-2023 Nucleated RBC/100 WBC (Bld) [Ratio] 0 % 0-5 [facility] Laboratory - Microbiology an d Antimicrobial susceptibilityOrdered By: Jay Wright on 10-01-2023 Bacteria identified Cx Nom (Bld) No growth in 5 days. [facility] Absolute lymphocyte countOrd ered By: Barbara Mathew on 09-30-2023 Lymphocytes Auto (Unsp spec) [#/Vol] 0.89 10*3/uL 0.83-4.51 [facility] Automated lymphocyte count a s percentage of total leukocytesOrdered By: Barbara Mathew on 09-30-2023 Lymphocytes/100 WBC Auto (Unsp spec) 6.9 % 19-41 [facility] Basophil percentageOrdered B y: Barbara Mathew on 09-30-2023 Basophil percentage >100 SEEN /hpf 0-5 [facility] Comment on above: Microscopic field is filled. Other elements may be obscured. Basophils/100 WBC (Bld) 0.3 % 0-1 [facility] Chloride [Moles/Vol] 113 mmol/L 98-107 [facility] Eosinophils/100 WBC (Bld) 0.3 % 0-5 [facility] Glucose [Mass/Vol] 111 mg/dL 74-106 [facility] Comment on above: Fasting Glucose resu lt from 100 to 125 mg/dL suggests IMPAIRED HOMEOSTASIS per A.D.A. criteria. Hemoglobin (Bld) [Mass/Vol] 13.9 g/dL 13.0-16.5 [facility] Monocytes/100 WBC (Bld) 9.4 % 0-10 [facility] Neutrophils (Bld) [#/Vol] 10.7 10*3/uL 2.0-7.7 [facility] Neutrophils/100 WBC (Bld) 82.8 % 47-70 [facility] Potassium [Moles/Vol] 3.9 mmol/L 3.5-5.1 [facility] Sodium [Moles/Vol] 141 mmol/L 136-145 [facility] WBC (Bld) [#/Vol] 12.9 10*3/uL 4.4-11.0 [facility] Bilirubin Test strip Ql (U)O rdered By: Barbara Mathew on 09-30-2023 Bilirubin Ql (U) 1 mg/dL Negative [facility] Comment on above: COLOR OF URINE MAY A FFECT DIPSTICK RESULTS. Culture, urineOrdered By: Josh Mathew on 09-30-2023 Bacteria identified Cx Nom (U) Escherichia coli [facility] Determination of erythrocyte mean corpuscular volume (MCV)Ordered By: Barbara Mathew on 09-30-2023 MCV (RBC) [Entitic vol] 94.9 fL 80-94 [facility] Erythrocyte distribution wid th ratioOrdered By: Barbara Mathew on 09-30-2023 Erythrocyte distribution width (RBC) [Ratio] 12.8 % 11.6-14.6 [facility] Erythrocyte distribution wid th standard deviationOrdered By: Barbara Mathew on 09-30-2023 Erythrocyte distribution width (RBC) [Entitic vol] 45.2 fL 35.1-43.9 [facility] Hematocrit Auto (Bld) [Volum e fraction]Ordered By: Barbara Mathew on 09-30-2023 Hematocrit (Bld) [Volume fraction] 42.6 % 40-54 [facility] Immature granulocytes/100 WB C Auto (Bld)Ordered By: Barbara Mathew on 09-30-2023 Immature granulocytes/100 WBC (Bld) 0.300 % 0.0-0.9 [facility] Comment on above: IG% - Immature Granu locytes (promyelocytes, myelocytes and metamyelocytes) > 1% indicates that a LEFT SHIFT is Present. Ketones Test strip Ql (U)Ord ered By: Barbara Mathew on 09-30-2023 Ketones Ql (U) 5 mg/dl Negative [facility] Laboratory - Chemistry and C hemistry - challengeOrdered By: Barbara Mathew on 09-30-2023 CO2 [Moles/Vol] 23.0 mmol/L 21.0-32.0 [facility] Urea nitrogen/Creatinine [Mass ratio] 19.1 mg/mg 10-20 [facility] Laboratory - Hematology and Cell countsOrdered By: Barbara Mathew on 09-30-2023 MCH (RBC) [Entitic mass] 31.0 pg 27.0-32.0 [facility] MCHC (RBC) [Mass/Vol] 32.6 g/dL 32-36 [facility] Nucleated RBC/100 WBC (Bld) [Ratio] 0 % 0-5 [facility] Platelet mean volume (Bld) [Entitic vol] 9.6 fL 6.2-12.0 [facility] Platelets (Bld) [#/Vol] 255 10*3/uL 150-450 [facility] Mucus LM Ql (Urine sed)Order ed By: Barbara Mathew on 09-30-2023 Mucus Ql (Urine sed) 0 SEEN /hpf [facility] Nitrite Test strip Ql (U)Ord ered By: Barbara Mathew on 09-30-2023 Nitrite Ql (U) Positive Negative [facility] No Panel InformationOrdered By: Barbara Mathew on 09-30-2023 Estimated Creatinine Clearance Calc 45.37 ml/min [facility] Estimated GFR (MDRD) Amer 65 mL/min >60 [facility] Comment on above: GFR Calc Estimated GFR (MDRD) Non-Af Amer 53 mL/min >60 [facility] Comment on above: Non- GFR Calc Urine RBC > 100 SEEN /hpf 0-5 [facility] Comment on above: Microscopic field is filled. Other elements may be obscured. No Panel InformationOrdered By: Galilea Moncada on 09-30-2023 Prostate Specific Antigen Screen 5.03 ng/mL 0.00-4.00 [facility] Comment on above: This test was perfor med using the TPSA assay method for theCrambu chemistry system. Values obtained with differentassay methods cannot be used interchangably.When changing PSA assays in the course of monitoring apatient, additional sequential testing should be carriedout to confirm baseline values. Protein Test strip Ql (U)Ord ered By: Barbara Mathew on 09-30-2023 Protein Ql (U) 500 mg/dl Negative [facility] RBC Auto (Bld) [#/Vol]Ordere d By: Barbara Mathew on 09-30-2023 RBC (Bld) [#/Vol] 4.49 10*6/uL 4.6-6.2 [facility] Serum or plasma calcium ambar urement (mass/volume)Ordered By: Barbara Mathew on 09-30-2023 Calcium [Mass/Vol] 8.6 mg/dL 8.5-10.1 [facility] Serum or plasma creatinine m easurement (mass/volume)Ordered By: Barbara Mathew on 09-30-2023 Creatinine [Mass/Vol] 1.36 mg/dL 0.70-1.30 [facility] Comment on above: The validity of the calculated GFR & GFRAA in patients over 70 years has not been determined. Clinical correlation is essential. Serum or plasma urea nitroge n measurement (mass/volume)Ordered By: Barbara Mathew on 09-30-2023 Urea nitrogen [Mass/Vol] 26 mg/dL 7-18 [facility] Squamous epithelial cells de tection in urine sediment by light microscopyOrdered By: Barbara Mathew on 09-30-2023 Epithelial cells.squamous LM Ql (Urine sed) 0 SEEN /hpf 0-5 [facility] Thin prep Papanicolaou smear with manual screeningOrdered By: Barbara Mathew on 09-30-2023 Thin prep Papanicolaou smear with manual screening 5 5-15 [facility] Urine blood detectionOrdered By: Barbara Mathew on 09-30-2023 RBC Ql (U) 250 /ul Negative [facility] Urine clarityOrdered By: Pamela Mathew on 09-30-2023 Clarity (U) Cloudy Clear [facility] Urine color determinationOrd ered By: Barbara Mathew on 09-30-2023 Color (U) Nargis Yellow [facility] Urine glucose detectionOrder ed By: Barbara Mathew on 09-30-2023 Glucose Ql (U) Normal mg/dl Normal [facility] Urine leukocyte esterase det ection by dipstickOrdered By: Barbara Matehw on 09-30-2023 Leukocyte esterase Test strip Ql (U) 500 /ul Negative [facility] Urine pHOrdered By: Barbara Sheth outrobby on 09-30-2023 pH (U) 6.5 [pH] 5.0 - 8.0 [facility] Urine sediment bacteria coun t by microscopy (number/high power field)Ordered By: Barbara Mathew on 09-30-2023 Bacteria LM.HPF (Urine sed) [#/Area] 0 /[HPF] None Seen [facility] Urine specific gravity measu rementOrdered By: Barbara Mathew on 09-30-2023 Specific gravity (U) [Rel density] 1.015 1.002-1.03 0 [facility] Urine urobilinogen measureme ntOrdered By: Barbara Mathew on 09-30-2023 Urobilinogen Ql (U) 1 mg/dl Normal [facility] Erythrocyte sedimentation ra teOrdered By: Jose Hooks on 09-09-2023 ESR (Bld) [Velocity] 6 mm/h 0-20 [facility] Laboratory - Chemistry and C hemistry - challengeOrdered By: Jose Hooks on 09-09-2023 CK [Catalytic activity/Vol] 63 U/L 39-308 [facility] No Panel InformationOrdered By: Jose Hooks on 09-09-2023 C-Reactive Protein Extended Range 7.07 mg/L 0.0-3.0 [facility] Comment on above: C-Reactive Protein ( CRP) provides useful information for thediagnosis, therapy and monitoring of inflammatory processesand associated diseases. For the evaluation of Relative Riskfor Cardiovascular Disease, a High Sensitivity CRP (HSCRP)should be ordered. Basophil percentageOrdered B y: Myrna Bridges on 09-08-2023 Bilirubin [Mass/Vol] 1.30 mg/dL 0.20-1.00 [facility] Comment on above: For patients on eltr ombopag therapy, use of Dimension [place] TBIL is not recommended. Cholesterol [Mass/Vol] 126 mg/dL <200 [facility] Comment on above: <200 mg/dL Desirable 200-240 mg/dL Borderline >240 mg/dL High Risk Protein [Mass/Vol] 6.7 g/dL 6.4-8.2 [facility] Triglyceride [Mass/Vol] 283 mg/dL <199 [facility] Comment on above: The drugs N-Acetylcy steine and Metamizole may falsely depress this assay.Serum Triglycerides Reference Interval Normal <150 mg/dL Borderline high 150 - 199 mg/dL High 200 - 499 mg/dL Very High > or = 500 mg/dL Basophil percentageOrdered B y: Karis Ca on 09-08-2023 Basophil percentage 3.3 mg/dL 2.5-4.9 [facility] Chloride [Moles/Vol] 113 mmol/L 98-107 [facility] Glucose [Mass/Vol] 99 mg/dL 74-106 [facility] Potassium [Moles/Vol] 4.0 mmol/L 3.5-5.1 [facility] Sodium [Moles/Vol] 142 mmol/L 136-145 [facility] Bilirubin Test strip Ql (U)O rdered By: Karis Ca on 09-08-2023 Bilirubin Ql (U) 1 mg/dL Negative [facility] Comment on above: COLOR OF URINE MAY A FFECT DIPSTICK RESULTS. Direct bilirubinOrdered By: Myrna Bridges on 09-08-2023 Bilirubin.direct [Mass/Vol] 0.25 mg/dL 0.00-0.30 [facility] Ketones Test strip Ql (U)Ord ered By: Karis Ca on 09-08-2023 Ketones Ql (U) Negative Negative [facility] Laboratory - Chemistry and C hemistry - challengeOrdered By: Myrna Bridges on 09-08-2023 ALP [Catalytic activity/Vol] 66 U/L 45-117 [facility] ALT [Catalytic activity/Vol] 19 U/L 16-61 [facility] Cholesterol in HDL [Mass/Vol] 36 mg/dL >40 [facility] Comment on above: The drugs N-Acetylcy steine and Metamizole may falsely depress this assay. Reference Range HDL <40 mg/dL Low HDL Cholesterol HDL >or= 60 mg/dL High HDL Cholesterol Cholesterol in LDL [Mass/Vol] 33 mg/dL 0-130 [facility] Globulin (S) [Mass/Vol] 3.3 g/dL 2.2-4.2 [facility] Laboratory - Chemistry and C hemistry - challengeOrdered By: Karis Ca on 09-08-2023 CO2 [Moles/Vol] 23.0 mmol/L 21.0-32.0 [facility] Urea nitrogen/Creatinine [Mass ratio] 15.8 mg/mg 10-20 [facility] Nitrite Test strip Ql (U)Ord ered By: Karis Ca on 09-08-2023 Nitrite Ql (U) Negative Negative [facility] No Panel InformationOrdered By: Myrna Bridges on 09-08-2023 VLDL Cholesterol 57 mg/dL 5-40 [facility] No Panel InformationOrdered By: Karis Ca on 09-08-2023 Estimated GFR (MDRD) Amer 63 mL/min >60 [facility] Comment on above: GFR Calc Estimated GFR (MDRD) Non-Af Amer 52 mL/min >60 [facility] Comment on above: Non- GFR Calc Protein Test strip Ql (U)Ord ered By: Karis Ca on 09-08-2023 Protein Ql (U) Negative Negative [facility] Serum or plasma calcium abmar urement (mass/volume)Ordered By: Karis Ca on 09-08-2023 Calcium [Mass/Vol] 8.8 mg/dL 8.5-10.1 [facility] Serum or plasma creatinine m easurement (mass/volume)Ordered By: Karis Ca on 09-08-2023 Creatinine [Mass/Vol] 1.39 mg/dL 0.70-1.30 [facility] Comment on above: The validity of the calculated GFR & GFRAA in patients over 70 years has not been determined. Clinical correlation is essential. Serum or plasma urea nitroge n measurement (mass/volume)Ordered By: Karis Ca on 09-08-2023 Urea nitrogen [Mass/Vol] 22 mg/dL 7-18 [facility] Thin prep Papanicolaou smear with manual screeningOrdered By: Myrna Bridges on 09-08-2023 Thin prep Papanicolaou smear with manual screening 3.4 g/dL 3.2-5.0 [facility] Thin prep Papanicolaou smear with manual screening 13 U/L 15-37 [facility] Urine blood detectionOrdered By: Karis Ca on 09-08-2023 RBC Ql (U) 10 /ul Negative [facility] Urine clarityOrdered By: Sue Ca on 09-08-2023 Clarity (U) Clear Clear [facility] Urine color determinationOrd ered By: Karis Ca on 09-08-2023 Color (U) Yellow Yellow [facility] Urine glucose detectionOrder ed By: Karis Ca on 09-08-2023 Glucose Ql (U) Normal mg/dl Normal [facility] Urine leukocyte esterase det ection by dipstickOrdered By: Karis Ca on 09-08-2023 Leukocyte esterase Test strip Ql (U) Negative Negative [facility] Urine pHOrdered By: Becky Ca on 09-08-2023 pH (U) 5.0 [pH] 5.0 - 8.0 [facility] Urine specific gravity measu rementOrdered By: Karis Ca on 09-08-2023 Specific gravity (U) [Rel density] 1.025 1.002-1.03 0 [facility] Urine urobilinogen measureme ntOrdered By: Karis Ca on 09-08-2023 Urobilinogen Ql (U) Normal mg/dl Normal [facility] Absolute lymphocyte countOrd ered By: Jose Hooks on 06-24-2023 Lymphocytes Auto (Unsp spec) [#/Vol] 1.02 10*3/uL 0.83-4.51 [facility] Automated lymphocyte count a s percentage of total leukocytesOrdered By: Jose Hooks on 06-24-2023 Lymphocytes/100 WBC Auto (Unsp spec) 14.1 % 19-41 [facility] Basophil percentageOrdered B y: Jose Hooks on 06-24-2023 Basophils/100 WBC (Bld) 1.0 % 0-1 [facility] Bilirubin [Mass/Vol] 1.40 mg/dL 0.20-1.00 [facility] Comment on above: For patients on eltr ombopag therapy, use of Dim[facility] [place] TBIL is not recommended. Chloride [Moles/Vol] 109 mmol/L 98-107 [facility] Eosinophils/100 WBC (Bld) 5.4 % 0-5 [facility] Glucose [Mass/Vol] 96 mg/dL 74-106 [facility] Hemoglobin (Bld) [Mass/Vol] 14.8 g/dL 13.0-16.5 [facility] Monocytes/100 WBC (Bld) 8.7 % 0-10 [facility] Neutrophils (Bld) [#/Vol] 5.1 10*3/uL 2.0-7.7 [facility] Neutrophils/100 WBC (Bld) 70.2 % 47-70 [facility] Potassium [Moles/Vol] 4.1 mmol/L 3.5-5.1 [facility] Protein [Mass/Vol] 6.3 g/dL 6.4-8.2 [facility] Sodium [Moles/Vol] 141 mmol/L 136-145 [facility] WBC (Bld) [#/Vol] 7.2 10*3/uL 4.4-11.0 [facility] Determination of erythrocyte mean corpuscular volume (MCV)Ordered By: Jose Hooks on 06-24-2023 MCV (RBC) [Entitic vol] 97.9 fL 80-94 [facility] Erythrocyte distribution wid th ratioOrdered By: Jose Jessee on 06-24-2023 Erythrocyte distribution width (RBC) [Ratio] 12.4 % 11.6-14.6 [facility] Erythrocyte distribution wid th standard deviationOrdered By: Jose Orellanaok on 06-24-2023 Erythrocyte distribution width (RBC) [Entitic vol] 44.8 fL 35.1-43.9 [facility] Hematocrit Auto (Bld) [Volum e fraction]Ordered By: Jose Hooks 06-24-2023 Hematocrit (Bld) [Volume fraction] 46.6 % 40-54 [facility] Immature granulocytes/100 WB C Auto (Bld)Ordered By: Jose Hooks on 06-24-2023 Immature granulocytes/100 WBC (Bld) 0.600 % 0.0-0.9 [facility] Comment on above: IG% - Immature Granu locytes (promyelocytes, myelocytes and metamyelocytes) > 1% indicates that a LEFT SHIFT is Present. Laboratory - Chemistry and C hemistry - challengeOrdered By: Jose Hooks on 06-24-2023 Albumin/Globulin [Mass ratio] 1.0 {ratio} 0.9-2.4 [facility] ALP [Catalytic activity/Vol] 72 U/L 45-117 [facility] ALT [Catalytic activity/Vol] 15 U/L 16-61 [facility] CO2 [Moles/Vol] 28.0 mmol/L 21.0-32.0 [facility] Globulin (S) [Mass/Vol] 3.2 g/dL 2.2-4.2 [facility] Urea nitrogen/Creatinine [Mass ratio] 11.5 mg/mg 10-20 [facility] Laboratory - Hematology and Cell countsOrdered By: Jose Hooks on 06-24-2023 MCH (RBC) [Entitic mass] 31.1 pg 27.0-32.0 [facility] MCHC (RBC) [Mass/Vol] 31.8 g/dL 32-36 [facility] Nucleated RBC/100 WBC (Bld) [Ratio] 0 % 0-5 [facility] Platelets (Bld) [#/Vol] 323 10*3/uL 150-450 [facility] No Panel InformationOrdered By: Jose Hooks on 06-24-2023 Estimated GFR (MDRD) Amer 59 mL/min >60 [facility] Comment on above: GFR Calc Estimated GFR (MDRD) Non-Af Amer 49 mL/min >60 [facility] Comment on above: Non- GFR Calc Vitamin D 25-Hydroxy 86.7 ng/mL [facility] Comment on above: Vitamin D 25(OH) Sta tus Range Deficiency <20 ng/mL (50nmol/L) Insufficiency 20 - 30 ng/mL (50 - 75 nmol/L) Sufficiency 30 - 100 ng/mL (75 - 250 nmol/L) Toxicity >100 ng/mL (>250 nmol/L) Platelet mean volume Cristi-Ec ker (Bld) [Entitic vol]Ordered By: Jose Hooks on 06-24-2023 Platelet mean volume (Bld) [Entitic vol] 9.8 fL 6.2-12.0 [facility] RBC Auto (Bld) [#/Vol]Ordere d By: Jose Hooks on 06-24-2023 RBC (Bld) [#/Vol] 4.76 10*6/uL 4.6-6.2 [facility] Serum or plasma calcium ambar urement (mass/volume)Ordered By: Jose Hooks on 06-24-2023 Calcium [Mass/Vol] 9.0 mg/dL 8.5-10.1 [facility] Serum or plasma creatinine m easurement (mass/volume)Ordered By: Jose Hooks on 06-24-2023 Creatinine [Mass/Vol] 1.48 mg/dL 0.70-1.30 [facility] Comment on above: The validity of the calculated GFR & GFRAA in patients over 70 years has not been determined. Clinical correlation is essential. Serum or plasma thyroid stim ulating hormone (TSH) measurement (units/volume)Ordered By: Jose Hooks on 06-24-2023 TSH Qn 0.59 uIU/mL 0.358-3.74 [facility] Serum or plasma urea nitroge n measurement (mass/volume)Ordered By: Jose Hooks on 06-24-2023 Urea nitrogen [Mass/Vol] 17 mg/dL 7-18 [facility] Thin prep Papanicolaou smear with manual screeningOrdered By: Jose Hooks on 06-24-2023 Thin prep Papanicolaou smear with manual screening 3.1 g/dL 3.2-5.0 [facility] Thin prep Papanicolaou smear with manual screening 13 U/L 15-37 [facility] Thin prep Papanicolaou smear with manual screening 4 5-15 [facility] Absolute lymphocyte countOrd ered By: Jose Hooks on 06-08-2023 Lymphocytes Auto (Unsp spec) [#/Vol] 1.01 10*3/uL 0.83-4.51 [facility] Basophil percentageOrdered B y: Jose Hooks on 06-08-2023 Basophils/100 WBC (Bld) 0.8 % 0-1 [facility] Eosinophils/100 WBC (Bld) 5.9 % 0-5 [facility] Neutrophils (Bld) [#/Vol] 5.6 10*3/uL 2.0-7.7 [facility] Neutrophils/100 WBC (Bld) 70.1 % 47-70 [facility] WBC (Bld) [#/Vol] 8.0 10*3/uL 4.4-11.0 [facility] Blood erythrocytes count (nu mber/volume)Ordered By: Jose Hooks on 06-08-2023 RBC (Bld) [#/Vol] 4.53 10*6/uL 4.6-6.2 [facility] Blood hemoglobin measurement (mass/volume)Ordered By: Jose Hooks on 06-08-2023 Hemoglobin (Bld) [Mass/Vol] 14.5 g/dL 13.0-16.5 [facility] Blood lymphocytes/100 leukoc ytesOrdered By: Jose Hooks on 06-08-2023 Lymphocytes/100 WBC (Bld) 12.7 % 19-41 [facility] Blood monocytes/100 leukocyt esOrdered By: Jose Hooks on 06-08-2023 Monocytes/100 WBC (Bld) 9.9 % 0-10 [facility] Blood platelet mean volumeOr dered By: Jose Hooks on 06-08-2023 Platelet mean volume (Bld) [Entitic vol] 9.4 fL 6.2-12.0 [facility] Determination of erythrocyte mean corpuscular volume (MCV)Ordered By: Jose Hooks on 06-08-2023 MCV (RBC) [Entitic vol] 96.9 fL 80-94 [facility] Hematocrit Auto (Bld) [Volum e fraction]Ordered By: Jose Hooks on 06-08-2023 Hematocrit (Bld) [Volume fraction] 43.9 % 40-54 [facility] Laboratory - Hematology and Cell countsOrdered By: Jose Hooks on 06-08-2023 Erythrocyte distribution width (RBC) [Entitic vol] 44.6 fL 35.1-43.9 [facility] Erythrocyte distribution width (RBC) [Ratio] 12.6 % 11.6-14.6 [facility] Immature granulocytes/100 WBC (Bld) 0.600 % 0.0-0.9 [facility] Comment on above: IG% - Immature Granu locytes (promyelocytes, myelocytes and metamyelocytes) > 1% indicates that a LEFT SHIFT is Present. MCH (RBC) [Entitic mass] 32.0 pg 27.0-32.0 [facility] Nucleated RBC/100 WBC (Bld) [Ratio] 0 % 0-5 [facility] MCHC Auto (RBC) [Mass/Vol]Or dered By: Jose Hooks on 06-08-2023 MCHC (RBC) [Mass/Vol] 33.0 g/dL 32-36 [facility] Platelets bldOrdered By: Jose Hooks on 06-08-2023 Platelets (Bld) [#/Vol] 365 10*3/uL 150-450 [facility] Absolute lymphocyte countOrd ered By: Uksum White on 05-30-2023 Lymphocytes Auto (Unsp spec) [#/Vol] 1.12 10*3/uL 0.83-4.51 [facility] Basophil percentageOrdered B y: White on 05-30-2023 Basophils/100 WBC (Bld) 0.5 % 0-1 [facility] Bilirubin [Mass/Vol] 1.00 mg/dL 0.20-1.00 [facility] Comment on above: For patients on eltr ombopag therapy, use of Dimension [place] TBIL is not recommended. Chloride [Moles/Vol] 115 mmol/L 98-107 [facility] Eosinophils/100 WBC (Bld) 5.0 % 0-5 [facility] Glucose [Mass/Vol] 87 mg/dL 74-106 [facility] Neutrophils (Bld) [#/Vol] 5.2 10*3/uL 2.0-7.7 [facility] Neutrophils/100 WBC (Bld) 69.6 % 47-70 [facility] Potassium [Moles/Vol] 3.9 mmol/L 3.5-5.1 [facility] Protein [Mass/Vol] 5.6 g/dL 6.4-8.2 [facility] Sodium [Moles/Vol] 144 mmol/L 136-145 [facility] WBC (Bld) [#/Vol] 7.5 10*3/uL 4.4-11.0 [facility] Blood erythrocytes count (nu mber/volume)Ordered By: Kusum Bishop on 05-30-2023 RBC (Bld) [#/Vol] 4.24 10*6/uL 4.6-6.2 [facility] Blood hemoglobin measurement (mass/volume)Ordered By: Kusum Bishop on 05-30-2023 Hemoglobin (Bld) [Mass/Vol] 13.6 g/dL 13.0-16.5 [facility] Blood lymphocytes/100 leukoc ytesOrdered By: Kusum Bishop on 05-30-2023 Lymphocytes/100 WBC (Bld) 15.0 % 19-41 [facility] Blood monocytes/100 leukocyt esOrdered By: Kusum Bishop on 05-30-2023 Monocytes/100 WBC (Bld) 9.0 % 0-10 [facility] Blood platelet mean volumeOr dered By: Kusum Bishop on 05-30-2023 Platelet mean volume (Bld) [Entitic vol] 8.9 fL 6.2-12.0 [facility] Determination of erythrocyte mean corpuscular volume (MCV)Ordered By: Kusum Bishop on 05-30-2023 MCV (RBC) [Entitic vol] 95.0 fL 80-94 [facility] Hematocrit Auto (Bld) [Volum e fraction]Ordered By: Kusum Bishop on 05-30-2023 Hematocrit (Bld) [Volume fraction] 40.3 % 40-54 [facility] Laboratory - Chemistry and C hemistry - challengeOrdered By: Kusum Bishop on 05-30-2023 ALP [Catalytic activity/Vol] 67 U/L 45-117 [facility] ALT [Catalytic activity/Vol] 19 U/L 16-61 [facility] CO2 [Moles/Vol] 26.0 mmol/L 21.0-32.0 [facility] Globulin (S) [Mass/Vol] 3.1 g/dL 2.2-4.2 [facility] Urea nitrogen/Creatinine [Mass ratio] 17.3 mg/mg 10-20 [facility] Laboratory - CoagulationOrde red By: Kusum Bishop on 05-30-2023 aPTT Coag (Bld) [Time] 85.7 s 24.1-36.2 [facility] - Hematology and Cell countsOrdered By: Kusum Bishop on 05-30-2023 Erythrocyte distribution width (RBC) [Entitic vol] 42.5 fL 35.1-43.9 [facility] Erythrocyte distribution width (RBC) [Ratio] 12.3 % 11.6-14.6 [facility] Immature granulocytes/100 WBC (Bld) 0.900 % 0.0-0.9 [facility] Comment on above: IG% - Immature Granu locytes (promyelocytes, myelocytes and metamyelocytes) > 1% indicates that a LEFT SHIFT is Present. MCH (RBC) [Entitic mass] 32.1 pg 27.0-32.0 [facility] Nucleated RBC/100 WBC (Bld) [Ratio] 0 % 0-5 [facility] MCHC Auto (RBC) [Mass/Vol]Or dered By: Kusum Bishop on 05-30-2023 MCHC (RBC) [Mass/Vol] 33.7 g/dL 32-36 [facility] No Panel InformationOrdered By: Kusum Bishop on 05-30-2023 Estimated Creatinine Clearance Calc 56.59 ml/min [facility] Estimated GFR (MDRD) Amer 83 mL/min >60 [facility] Comment on above: GFR Calc Estimated GFR (MDRD) Non-Af Amer 68 mL/min >60 [facility] Comment on above: Non- GFR Calc Platelets bldOrdered By: Pedro Bishop on 05-30-2023 Platelets (Bld) [#/Vol] 339 10*3/uL 150-450 [facility] Serum or plasma albumin ambar urement (mass/volume)Ordered By: Kusum Bishop on 05-30-2023 Albumin [Mass/Vol] 2.5 g/dL 3.2-5.0 [facility] Serum or plasma albumin/glob ulin mass ratioOrdered By: Kusum Bishop on 05-30-2023 Albumin/Globulin [Mass ratio] 0.8 {ratio} 0.9-2.4 [facility] Serum or plasma calcium ambar urement (mass/volume)Ordered By: Kusum Bishop on 05-30-2023 Calcium [Mass/Vol] 8.5 mg/dL 8.5-10.1 [facility] Serum or plasma creatinine m easurement (mass/volume)Ordered By: Kusum Bishop on 05-30-2023 Creatinine [Mass/Vol] 1.10 mg/dL 0.70-1.30 [facility] Comment on above: The validity of the calculated GFR & GFRAA in patients over 70 years has not been determined. Clinical correlation is essential. Serum or plasma urea nitroge n measurement (mass/volume)Ordered By: Kusum Bishop on 05-30-2023 Urea nitrogen [Mass/Vol] 19 mg/dL 7-18 [facility] Thin prep Papanicolaou smear with manual screeningOrdered By: Kusum Bishop on 05-30-2023 Thin prep Papanicolaou smear with manual screening 10 U/L 15-37 [facility] Thin prep Papanicolaou smear with manual screening 3 5-15 [facility] Absolute lymphocyte countOrd ered By: Fred Tam on 05-29-2023 Lymphocytes Auto (Unsp spec) [#/Vol] 0.99 10*3/uL 0.83-4.51 [facility] Basophil percentageOrdered B y: Fred Tam on 05-29-2023 Basophils/100 WBC (Bld) 0.6 % 0-1 [facility] Chloride [Moles/Vol] 113 mmol/L 98-107 [facility] Eosinophils/100 WBC (Bld) 6.3 % 0-5 [facility] Glucose [Mass/Vol] 108 mg/dL 74-106 [facility] Comment on above: Fasting Glucose resu lt from 100 to 125 mg/dL suggests IMPAIRED HOMEOSTASIS per A.D.A. criteria. Neutrophils (Bld) [#/Vol] 5.0 10*3/uL 2.0-7.7 [facility] Neutrophils/100 WBC (Bld) 69.1 % 47-70 [facility] Potassium [Moles/Vol] 4.1 mmol/L 3.5-5.1 [facility] Sodium [Moles/Vol] 144 mmol/L 136-145 [facility] WBC (Bld) [#/Vol] 7.3 10*3/uL 4.4-11.0 [facility] Blood erythrocytes count (nu mber/volume)Ordered By: Fred Tam on 05-29-2023 RBC (Bld) [#/Vol] 4.32 10*6/uL 4.6-6.2 [facility] Blood hemoglobin measurement (mass/volume)Ordered By: Fred Tam on 05-29-2023 Hemoglobin (Bld) [Mass/Vol] 13.9 g/dL 13.0-16.5 [facility] Blood lymphocytes/100 leukoc ytesOrdered By: Fred Tam on 05-29-2023 Lymphocytes/100 WBC (Bld) 13.6 % 19-41 [facility] Blood monocytes/100 leukocyt esOrdered By: Fred Tam on 05-29-2023 Monocytes/100 WBC (Bld) 9.2 % 0-10 [facility] Blood platelet mean volumeOr dered By: Fred Tam on 05-29-2023 Platelet mean volume (Bld) [Entitic vol] 9.0 fL 6.2-12.0 [facility] Determination of erythrocyte mean corpuscular volume (MCV)Ordered By: Fred Tam on 05-29-2023 MCV (RBC) [Entitic vol] 95.4 fL 80-94 [facility] Hematocrit Auto (Bld) [Volum e fraction]Ordered By: Fred Tam on 05-29-2023 Hematocrit (Bld) [Volume fraction] 41.2 % 40-54 [facility] INR in Blood by Coagulation assayOrdered By: Kusum Bishop on 05-29-2023 INR Coag (Bld) [Relative time] 1.4 {INR} [facility] Laboratory - Chemistry and C hemistry - challengeOrdered By: Fred Tam on 05-29-2023 CO2 [Moles/Vol] 28.0 mmol/L 21.0-32.0 [facility] Urea nitrogen/Creatinine [Mass ratio] 22.6 mg/mg 10-20 [facility] Laboratory - Chemistry and C hemistry - challengeOrdered By: Kusum Bishop on 05-29-2023 Magnesium [Mass/Vol] 2.1 mg/dL 1.6-2.6 [facility] Laboratory - CoagulationOrde red By: Kusum Bishop on 05-29-2023 PT Coag (PPP) [Time] 17.0 s 11.7-14.9 [facility] Laboratory - Hematology and Cell countsOrdered By: Fred Tam on 05-29-2023 Erythrocyte distribution width (RBC) [Entitic vol] 43.1 fL 35.1-43.9 [facility] Erythrocyte distribution width (RBC) [Ratio] 12.4 % 11.6-14.6 [facility] Immature granulocytes/100 WBC (Bld) 1.200 % 0.0-0.9 [facility] Comment on above: IG% - Immature Granu locytes (promyelocytes, myelocytes and metamyelocytes) > 1% indicates that a LEFT SHIFT is Present. MCH (RBC) [Entitic mass] 32.2 pg 27.0-32.0 [facility] Nucleated RBC/100 WBC (Bld) [Ratio] 0 % 0-5 [facility] Lower GI hemoglobin IA Ql (S tl)Ordered By: Fred Tam on 05-29-2023 Stool Occult Blood (CHRIS) Positive [facility] Stool Occult Blood (CHRIS) Positive [facility] MCHC Auto (RBC) [Mass/Vol]Or dered By: Fred Tam on 05-29-2023 MCHC (RBC) [Mass/Vol] 33.7 g/dL 32-36 [facility] No Panel InformationOrdered By: Fred Tam on 05-29-2023 Estimated Creatinine Clearance Calc 57.39 ml/min [facility] Estimated GFR (MDRD) Amer 86 mL/min >60 [facility] Comment on above: GFR Calc Estimated GFR (MDRD) Non-Af Amer 71 mL/min >60 [facility] Comment on above: Non- GFR Calc Platelets bldOrdered By: Elisa Tam on 05-29-2023 Platelets (Bld) [#/Vol] 370 10*3/uL 150-450 [facility] Serum or plasma calcium ambar urement (mass/volume)Ordered By: Fred Tam on 05-29-2023 Calcium [Mass/Vol] 8.5 mg/dL 8.5-10.1 [facility] Serum or plasma creatinine m easurement (mass/volume)Ordered By: Fred Tam on 05-29-2023 Creatinine [Mass/Vol] 1.06 mg/dL 0.70-1.30 [facility] Comment on above: The validity of the calculated GFR & GFRAA in patients over 70 years has not been determined. Clinical correlation is essential. Serum or plasma urea nitroge n measurement (mass/volume)Ordered By: Fred Tam on 05-29-2023 Urea nitrogen [Mass/Vol] 24 mg/dL 7-18 [facility] Thin prep Papanicolaou smear with manual screeningOrdered By: Fred Tam on 05-29-2023 Thin prep Papanicolaou smear with manual screening 3 5-15 [facility] Basophil percentageOrdered B y: Lm Delaney on 05-22-2023 Basophil percentage Not Reportable [facility] Erythrocyte sedimentation ra teOrdered By: Lm Delaney on 05-22-2023 ESR (Bld) [Velocity] 25 mm/h 0-20 [facility] No Panel InformationOrdered By: Lm Delaney on 05-22-2023 Anti-Nuclear Antibody Screen Negative Negative [facility] Comment on above: Performed at: [employer] [address] [id number] Director: Brian Montenegro PhD, Phone: [phone] [employer] Antibody Not Reportable [facility] Miscellaneous Test See comment [facility] Comment on above: TEST RESULTS LIMITSP [...] NegativeAGNA-1 A, Negative NegativeVGCC Antibody <1.0 pmol/L 0.0-30.1XAYUD0 Antibody,Cell-based IFA A, Negative NegativeLGI1 Antibody, Cell-based IFA A, Negative NegativeCommentsA: This test was developed and its performance characteristics determined by [facility]. It has not been cleared or approved by the Food and Drug Administration. TESTING PERFORMED AT [facility]. ORIGINAL REPORT ON FILE IN LAB CONTAINS ADDITIONAL TEST SITE INFORMATION. [employer]ENDER Antibody Not Reportable [facility] Serum DNA double strand anti body assay (units/volume)Ordered By: Lm Delaney on 05-22-2023 DNA double strand Ab Qn (S) Not Reportable [facility] Serum Rosa-1 antibody assay (u nits/volume)Ordered By: Lm Delaney on 05-22-2023 Rosa-1 extractable nuclear Ab Qn (S) Not Reportable [facility] Serum Scl-70 extractable nuc lear antibody assay (units/volume)Ordered By: Lm Delaney on 05-22-2023 SCL-70 extractable nuclear Ab Qn (S) Not Reportable [facility] Serum Cam extractable nucl ear antibody detectionOrdered By: Lm Delaney on 05-22-2023 Cam extractable nuclear Ab Ql (S) Not Reportable [facility] Serum or plasma C reactive p rotein measurement (mass/volume)Ordered By: Lm Delaney on 05-22-2023 CRP [Mass/Vol] 75.60 mg/L 0.0-3.0 [facility] Comment on above: C-Reactive Protein ( CRP) provides useful information for thediagnosis, therapy and monitoring of inflammatory processesand associated diseases. For the evaluation of Relative Riskfor Cardiovascular Disease, a High Sensitivity CRP (HSCRP)should be ordered. Basophil percentageOrdered B y: Lm Delaney on 05-21-2023 Chloride [Moles/Vol] 113 mmol/L 98-107 [facility] Cholesterol [Mass/Vol] 78 mg/dL <200 [facility] Comment on above: <200 mg/dL Desirable 200-240 mg/dL Borderline >240 mg/dL High Risk Glucose [Mass/Vol] 89 mg/dL 74-106 [facility] Potassium [Moles/Vol] 4.5 mmol/L 3.5-5.1 [facility] Sodium [Moles/Vol] 145 mmol/L 136-145 [facility] Triglyceride [Mass/Vol] 87 mg/dL <199 [facility] Comment on above: The drugs N-Acetylcy steine and Metamizole may falsely depress this assay.Serum Triglycerides Reference Interval Normal <150 mg/dL Borderline high 150 - 199 mg/dL High 200 - 499 mg/dL Very High > or = 500 mg/dL Laboratory - Chemistry and C hemistry - challengeOrdered By: Lm Delaney on 05-21-2023 CO2 [Moles/Vol] 25.0 mmol/L 21.0-32.0 [facility] Urea nitrogen/Creatinine [Mass ratio] 19.4 mg/mg 10- [facility] Laboratory - Drug toxicology Ordered By: Lm Delaney on 05-21-2023 Amphetamines Ql (U) Negative <1000 ng/mL [facility] Benzodiazepines Ql (U) Negative < 200 ng/mL [facility] Cannabinoids Screen Ql (U) Negative < 50 ng/mL [facility] Cocaine Ql (U) Negative < 300 ng/mL [facility] Opiates Ql (U) Negative < 300 ng/mL [facility] No Panel InformationOrdered By: Lm Delaney on 05-21-2023 MDMA (Ecstasy) Screen Negative < 500 ng/mL [facility] Urine Barbiturates Screen Negative < 200 ng/mL [facility] Urine Drug Screen Comment [facility] Comment on above: CONFIRMATORY TESTING FOR [...] Urine Methadone Screen Negative < 300 ng/mL [facility] Estimated Creatinine Clearance Calc 49.93 ml/min [facility] Estimated GFR (MDRD) Amer 72 mL/min >60 [facility] Comment on above: GFR Calc Estimated GFR (MDRD) Non-Af Amer 60 mL/min >60 [facility] Comment on above: Non- GFR Calc Serum or plasma calcium ambar urement (mass/volume)Ordered By: Lm Delaney on 05-21-2023 Calcium [Mass/Vol] 8.0 mg/dL 8.5-10.1 [facility] Serum or plasma cholesterol in HDL measurement (mass/volume)Ordered By: Lm Delaney on 05-21-2023 Cholesterol in HDL [Mass/Vol] 42 mg/dL >40 [facility] Comment on above: The drugs N-Acetylcy steine and Metamizole may falsely depress this assay. Reference Range HDL <40 mg/dL Low HDL Cholesterol HDL >or= 60 mg/dL High HDL Cholesterol Serum or plasma cholesterol in VLDL measurement (mass/volume)Ordered By: Lm Delaney on 05-21-2023 Cholesterol in VLDL [Mass/Vol] 17 mg/dL 5-40 [facility] Serum or plasma creatinine m easurement (mass/volume)Ordered By: Lm Delaney on 05-21-2023 Creatinine [Mass/Vol] 1.24 mg/dL 0.70-1.30 [facility] Comment on above: The validity of the calculated GFR & GFRAA in patients over 70 years has not been determined. Clinical correlation is essential. Serum or plasma low density lipoprotein (LDL) cholesterol measurement (mass/volume)Ordered By: Lm Delaney on 05-21-2023 Cholesterol in LDL [Mass/Vol] 19 mg/dL 0-130 [facility] Serum or plasma urea nitroge n measurement (mass/volume)Ordered By: Lm Delaney on 05-21-2023 Urea nitrogen [Mass/Vol] 24 mg/dL 7-18 [facility] Thin prep Papanicolaou smear with manual screeningOrdered By: Lm Delaney on 05-21-2023 Thin prep Papanicolaou smear with manual screening 7 5-15 [facility] Urine phencyclidine (PCP) de tectionOrdered By: mL Delaney on 05-21-2023 Phencyclidine Ql (U) Negative < 25 ng/mL [facility] Absolute lymphocyte countOrd ered By: Rl Cadena on 05-20-2023 Lymphocytes Auto (Unsp spec) [#/Vol] 0.84 10*3/uL 0.83-4.51 [facility] Basophil percentageOrdered B y: Lm Delaney on 05-20-2023 Basophil percentage < 10.0 umol/L 11-32 [facility] Basophil percentageOrdered B y: Rl Cadena on 05-20-2023 Basophil percentage 0 SEEN /hpf 0-5 [facility] Basophils/100 WBC (Bld) 0.6 % 0-1 [facility] Chloride [Moles/Vol] 109 mmol/L 98-107 [facility] Eosinophils/100 WBC (Bld) 1.0 % 0-5 [facility] Glucose [Mass/Vol] 139 mg/dL 74-106 [facility] Comment on above: Fasting Glucose resu lt greater than or equal to 126 mg/dL suggests DIABETES MELLITUS per A.D.A. criteria. Neutrophils (Bld) [#/Vol] 7.2 10*3/uL 2.0-7.7 [facility] Neutrophils/100 WBC (Bld) 79.6 % 47-70 [facility] Potassium [Moles/Vol] 3.9 mmol/L 3.5-5.1 [facility] Sodium [Moles/Vol] 139 mmol/L 136-145 [facility] WBC (Bld) [#/Vol] 9.1 10*3/uL 4.4-11.0 [facility] Bilirubin Test strip Ql (U)O rdered By: Rl Cadena on 05-20-2023 Bilirubin Ql (U) Negative Negative [facility] Blood erythrocytes count (nu mber/volume)Ordered By: Rl Cadena on 05-20-2023 RBC (Bld) [#/Vol] 4.86 10*6/uL 4.6-6.2 [facility] Blood hemoglobin measurement (mass/volume)Ordered By: Rl Cadena on 05-20-2023 Hemoglobin (Bld) [Mass/Vol] 15.2 g/dL 13.0-16.5 [facility] Blood lymphocytes/100 leukoc ytesOrdered By: Rl Cadena on 05-20-2023 Lymphocytes/100 WBC (Bld) 9.3 % 19-41 [facility] Blood monocytes/100 leukocyt esOrdered By: Rl Cadena on 05-20-2023 Monocytes/100 WBC (Bld) 8.9 % 0-10 [facility] Blood platelet mean volumeOr dered By: Rl Cadena on 05-20-2023 Platelet mean volume (Bld) [Entitic vol] 9.3 fL 6.2-12.0 [facility] Determination of erythrocyte mean corpuscular volume (MCV)Ordered By: Rl Cadena on 05-20-2023 MCV (RBC) [Entitic vol] 95.3 fL 80-94 [facility] Hematocrit Auto (Bld) [Volum e fraction]Ordered By: Rl Cadena on 05-20-2023 Hematocrit (Bld) [Volume fraction] 46.3 % 40-54 [facility] INR in Blood by Coagulation assayOrdered By: Rl Cadena on 05-20-2023 INR Coag (Bld) [Relative time] 1.0 {INR} [facility] Ketones Test strip Ql (U)Ord ered By: Rl Cadena on 05-20-2023 Ketones Ql (U) Negative Negative [facility] Laboratory - Chemistry and C hemistry - challengeOrdered By: Rl Cadena on 05-20-2023 CO2 [Moles/Vol] 22.0 mmol/L 21.0-32.0 [facility] Urea nitrogen/Creatinine [Mass ratio] 14.5 mg/mg 03-20 [facility] Laboratory - CoagulationOrde red By: Rl Cadena on 05-20-2023 aPTT Coag (Bld) [Time] 29.4 s 24.1-36.2 [facility] PT Coag (PPP) [Time] 13.6 s 11.7-14.9 [facility] Laboratory - Hematology and Cell countsOrdered By: Rl Cadena on 05-20-2023 Erythrocyte distribution width (RBC) [Entitic vol] 44.9 fL 35.1-43.9 [facility] Erythrocyte distribution width (RBC) [Ratio] 12.8 % 11.6-14.6 [facility] Immature granulocytes/100 WBC (Bld) 0.600 % 0.0-0.9 [facility] Comment on above: IG% - Immature Granu locytes (promyelocytes, myelocytes and metamyelocytes) > 1% indicates that a LEFT SHIFT is Present. MCH (RBC) [Entitic mass] 31.3 pg 27.0-32.0 [facility] Nucleated RBC/100 WBC (Bld) [Ratio] 0 % 0-5 [facility] MCHC Auto (RBC) [Mass/Vol]Or dered By: Rl Cadena on 05-20-2023 MCHC (RBC) [Mass/Vol] 32.8 g/dL 32-36 [facility] Mucus LM Ql (Urine sed)Order ed By: Rl Cadena on 05-20-2023 Mucus Ql (Urine sed) 0 SEEN /hpf [facility] Nitrite Test strip Ql (U)Ord ered By: Rl Cadena on 05-20-2023 Nitrite Ql (U) Negative Negative [facility] No Panel InformationOrdered By: Rl Cadena on 05-20-2023 Estimated Creatinine Clearance Calc 38.26 ml/min [facility] Estimated GFR (MDRD) Amer 54 mL/min >60 [facility] Comment on above: GFR Calc Estimated GFR (MDRD) Non-Af Amer 45 mL/min >60 [facility] Comment on above: Non- GFR Calc Troponin I High Sensitivity 6 pg/mL 3.0-78.0 [facility] Comment on above: Please Note: [place] t Units and Gender Specific Reference Ranges. For more information see Policy Stat Procedure [place] [facility] High Sensitivity Troponin (TNIH) and attachments. No Panel InformationOrdered By: Lm Delaney on 05-20-2023 Thyroid Stimulating Hormone (TSH) 0.42 uIU/mL 0.358-3.74 [facility] Platelets bldOrdered By: Arron Cadena on 05-20-2023 Platelets (Bld) [#/Vol] 265 10*3/uL 150-450 [facility] Protein Test strip Ql (U)Ord ered By: Rl Cadena on 05-20-2023 Protein Ql (U) 15 mg/dl Negative [facility] Serum or plasma calcium ambar urement (mass/volume)Ordered By: Rl Cadena on 05-20-2023 Calcium [Mass/Vol] 9.0 mg/dL 8.5-10.1 [facility] Serum or plasma creatinine m easurement (mass/volume)Ordered By: Rl Cadena on 05-20-2023 Creatinine [Mass/Vol] 1.59 mg/dL 0.70-1.30 [facility] Comment on above: The validity of the calculated GFR & GFRAA in patients over 70 years has not been determined. Clinical correlation is essential. Serum or plasma urea nitroge n measurement (mass/volume)Ordered By: Rl Cadena on 05-20-2023 Urea nitrogen [Mass/Vol] 23 mg/dL 7-18 [facility] Squamous epithelial cells de tection in urine sediment by light microscopyOrdered By: Rl Cadena on 05-20-2023 Epithelial cells.squamous LM Ql (Urine sed) 0 SEEN /hpf 0-5 [facility] Thin prep Papanicolaou smear with manual screeningOrdered By: Rl Cadena on 05-20-2023 Thin prep Papanicolaou smear with manual screening 8 5-15 [facility] Urine blood detectionOrdered By: Rl Cadena on 05-20-2023 RBC Ql (U) 25 /ul Negative [facility] RBC Ql (U) 0-5 SEEN /hpf 0-5 [facility] Urine clarityOrdered By: Arron Cadena on 05-20-2023 Clarity (U) Clear Clear [facility] Urine color determinationOrd ered By: Rl Cadena on 05-20-2023 Color (U) Yellow Yellow [facility] Urine glucose detectionOrder ed By: Rl Cadena on 05-20-2023 Glucose Ql (U) Normal mg/dl Normal [facility] Urine leukocyte esterase det ection by dipstickOrdered By: Rl Cadena on 05-20-2023 Leukocyte esterase Test strip Ql (U) Negative Negative [facility] Urine pHOrdered By: Rl hoffman on 05-20-2023 pH (U) 7.0 [pH] 5.0 - 8.0 [facility] Urine sediment bacteria coun t by microscopy (number/high power field)Ordered By: Rl Cadena on 05-20-2023 Bacteria LM.HPF (Urine sed) [#/Area] 0 /[HPF] None Seen [facility] Urine specific gravity measu rementOrdered By: Rl Cadena on 05-20-2023 Specific gravity (U) [Rel density] 1.010 1.002-1.03 0 [facility] Urobilinogen Auto test strip Ql (U)Ordered By: Rl Cadena on 05-20-2023 Urobilinogen Ql (U) 1 mg/dl Normal [facility] Laboratory - Microbiology an d Antimicrobial susceptibilityOrdered By: Jose Hooks on 05-06-2023 SARS-CoV-2 (COVID-19) RNA [place]+probe Ql (Unsp spec) [facility] SARS-CoV-2 (COVID-19) RNA [place]+probe Ql (Unsp spec) [facility] No Panel InformationOrdered By: Jose Hooks on 05-06-2023 Influenza Types A,B Direct FA (CHRIS) [facility] Influenza Types A,B Direct FA (CHRIS) [facility] RSV Ag Immune stain Ql (Tiss )Ordered By: Jose Hooks on 05-06-2023 Rapid RSV (DFA) RSV [facility] Rapid RSV (DFA) RSV [facility] Absolute lymphocyte countOrd ered By: Jose Hooks on 05-04-2023 Lymphocytes Auto (Unsp spec) [#/Vol] 1.05 10*3/uL 0.83-4.51 [facility] Basophil percentageOrdered B y: Jose Hooks on 05-04-2023 Basophils/100 WBC (Bld) 0.6 % 0-1 [facility] Bilirubin [Mass/Vol] 1.20 mg/dL 0.20-1.00 [facility] Comment on above: For patients on eltr ombopag therapy, use of Dimension [place] TBIL is not recommended. Chloride [Moles/Vol] 111 mmol/L 98-107 [facility] Eosinophils/100 WBC (Bld) 3.6 % 0-5 [facility] Glucose [Mass/Vol] 104 mg/dL 74-106 [facility] Comment on above: Fasting Glucose resu lt from 100 to 125 mg/dL suggests IMPAIRED HOMEOSTASIS per A.D.A. criteria. Neutrophils (Bld) [#/Vol] 5.1 10*3/uL 2.0-7.7 [facility] Neutrophils/100 WBC (Bld) 72.8 % 47-70 [facility] Potassium [Moles/Vol] 4.3 mmol/L 3.5-5.1 [facility] Protein [Mass/Vol] 6.6 g/dL 6.4-8.2 [facility] Sodium [Moles/Vol] 143 mmol/L 136-145 [facility] WBC (Bld) [#/Vol] 7.0 10*3/uL 4.4-11.0 [facility] Blood erythrocytes count (nu mber/volume)Ordered By: Jose Hooks on 05-04-2023 RBC (Bld) [#/Vol] 5.02 10*6/uL 4.6-6.2 [facility] Blood hemoglobin measurement (mass/volume)Ordered By: Jose Hooks on 05-04-2023 Hemoglobin (Bld) [Mass/Vol] 15.8 g/dL 13.0-16.5 [facility] Blood lymphocytes/100 leukoc ytesOrdered By: Jose Hooks on 05-04-2023 Lymphocytes/100 WBC (Bld) 15.1 % 19-41 [facility] Blood monocytes/100 leukocyt esOrdered By: Jose Hooks on 05-04-2023 Monocytes/100 WBC (Bld) 7.5 % 0-10 [facility] Blood platelet mean volumeOr dered By: Jose Hooks on 05-04-2023 Platelet mean volume (Bld) [Entitic vol] 9.3 fL 6.2-12.0 [facility] Determination of erythrocyte mean corpuscular volume (MCV)Ordered By: Jose Hooks on 05-04-2023 MCV (RBC) [Entitic vol] 98.2 fL 80-94 [facility] Hematocrit Auto (Bld) [Volum e fraction]Ordered By: Jose Hooks on 05-04-2023 Hematocrit (Bld) [Volume fraction] 49.3 % 40-54 [facility] Laboratory - Chemistry and C hemistry - challengeOrdered By: Jose Hooks on 05-04-2023 ALP [Catalytic activity/Vol] 64 U/L 45-117 [facility] ALT [Catalytic activity/Vol] 21 U/L 16-61 [facility] CO2 [Moles/Vol] 25.0 mmol/L 21.0-32.0 [facility] Globulin (S) [Mass/Vol] 3.4 g/dL 2.2-4.2 [facility] Urea nitrogen/Creatinine [Mass ratio] 20.3 mg/mg 10-20 [facility] Laboratory - Hematology and Cell countsOrdered By: Jose Jessee on 05-04-2023 Erythrocyte distribution width (RBC) [Entitic vol] 45.4 fL 35.1-43.9 [facility] Erythrocyte distribution width (RBC) [Ratio] 12.6 % 11.6-14.6 [facility] Immature granulocytes/100 WBC (Bld) 0.400 % 0.0-0.9 [facility] Comment on above: IG% - Immature Granu locytes (promyelocytes, myelocytes and metamyelocytes) > 1% indicates that a LEFT SHIFT is Present. MCH (RBC) [Entitic mass] 31.5 pg 27.0-32.0 [facility] Nucleated RBC/100 WBC (Bld) [Ratio] 0 % 0-5 [facility] MCHC Auto (RBC) [Mass/Vol]Or dered By: Jose Hooks on 05-04-2023 MCHC (RBC) [Mass/Vol] 32.0 g/dL 32-36 [facility] No Panel InformationOrdered By: Jose Hooks on 05-04-2023 Estimated GFR (MDRD) Amer 66 mL/min >60 [facility] Comment on above: GFR Calc Estimated GFR (MDRD) Non-Af Amer 55 mL/min >60 [facility] Comment on above: Non- GFR Calc Thyroid Stimulating Hormone (TSH) 0.98 uIU/mL 0.358-3.74 [facility] Platelets bldOrdered By: Jose Hooks on 05-04-2023 Platelets (Bld) [#/Vol] 297 10*3/uL 150-450 [facility] Serum or plasma albumin ambar urement (mass/volume)Ordered By: Jose Hooks on 05-04-2023 Albumin [Mass/Vol] 3.2 g/dL 3.2-5.0 [facility] Serum or plasma albumin/glob ulin mass ratioOrdered By: Jose Hooks on 05-04-2023 Albumin/Globulin [Mass ratio] 0.9 {ratio} 0.9-2.4 [facility] Serum or plasma calcium ambar urement (mass/volume)Ordered By: Jose Hooks on 05-04-2023 Calcium [Mass/Vol] 9.0 mg/dL 8.5-10.1 [facility] Serum or plasma creatinine m easurement (mass/volume)Ordered By: Jose Hooks on 05-04-2023 Creatinine [Mass/Vol] 1.33 mg/dL 0.70-1.30 [facility] Comment on above: The validity of the calculated GFR & GFRAA in patients over 70 years has not been determined. Clinical correlation is essential. Serum or plasma urea nitroge n measurement (mass/volume)Ordered By: Jose Hooks on 05-04-2023 Urea nitrogen [Mass/Vol] 27 mg/dL 7-18 [facility] Thin prep Papanicolaou smear with manual screeningOrdered By: Jose Hooks 05-04-2023 Thin prep Papanicolaou smear with manual screening 13 U/L 15-37 [facility] Thin prep Papanicolaou smear with manual screening 7 5-15 [facility] Basophil percentageOrdered B y: Myrna Bridges on 04-08-2023 Bilirubin [Mass/Vol] 1.00 mg/dL 0.20-1.00 [facility] Comment on above: For patients on eltr ombopag therapy, use of Dimension [place] TBIL is not recommended. Cholesterol [Mass/Vol] 107 mg/dL <200 [facility] Comment on above: <200 mg/dL Desirable 200-240 mg/dL Borderline >240 mg/dL High Risk Protein [Mass/Vol] 6.7 g/dL 6.4-8.2 [facility] Triglyceride [Mass/Vol] 112 mg/dL <199 [facility] Comment on above: The drugs N-Acetylcy steine and Metamizole may falsely depress this assay.Serum Triglycerides Reference Interval Normal <150 mg/dL Borderline high 150 - 199 mg/dL High 200 - 499 mg/dL Very High > or = 500 mg/dL Basophil percentageOrdered B y: Melody Whitmore on 04-08-2023 Chloride [Moles/Vol] 110 mmol/L 98-107 [facility] Glucose [Mass/Vol] 162 mg/dL 74-106 [facility] Comment on above: Fasting Glucose resu lt greater than or equal to 126 mg/dL suggests DIABETES MELLITUS per A.D.A. criteria. Potassium [Moles/Vol] 4.6 mmol/L 3.5-5.1 [facility] Sodium [Moles/Vol] 142 mmol/L 136-145 [facility] Direct bilirubinOrdered By: Myrna Bridges on 04-08-2023 Bilirubin.direct [Mass/Vol] 0.24 mg/dL 0.00-0.30 [facility] Laboratory - Chemistry and C hemistry - challengeOrdered By: Myrna Bridges on 04-08-2023 ALP [Catalytic activity/Vol] 66 U/L 45-117 [facility] ALT [Catalytic activity/Vol] 15 U/L 16-61 [facility] Globulin (S) [Mass/Vol] 2.9 g/dL 2.2-4.2 [facility] Laboratory - Chemistry and C hemistry - challengeOrdered By: Melody Whitmore on 04-08-2023 CO2 [Moles/Vol] 26.0 mmol/L 21.0-32.0 [facility] Magnesium [Mass/Vol] 2.4 mg/dL 1.6-2.6 [facility] Urea nitrogen/Creatinine [Mass ratio] 19.1 mg/mg 10-20 [facility] No Panel InformationOrdered By: Melody Whitmore on 04-08-2023 Estimated GFR (MDRD) Amer 55 mL/min >60 [facility] Comment on above: GFR Calc Estimated GFR (MDRD) Non-Af Amer 45 mL/min >60 [facility] Comment on above: Non- GFR Calc Serum or plasma albumin ambar urement (mass/volume)Ordered By: Myrna Bridges on 04-08-2023 Albumin [Mass/Vol] 3.8 g/dL 3.2-5.0 [facility] Serum or plasma calcium ambar urement (mass/volume)Ordered By: Melody Whitmore on 04-08-2023 Calcium [Mass/Vol] 9.1 mg/dL 8.5-10.1 [facility] Serum or plasma cholesterol in HDL measurement (mass/volume)Ordered By: Myrna Bridges on 04-08-2023 Cholesterol in HDL [Mass/Vol] 45 mg/dL >40 [facility] Comment on above: The drugs N-Acetylcy steine and Metamizole may falsely depress this assay. Reference Range HDL <40 mg/dL Low HDL Cholesterol HDL >or= 60 mg/dL High HDL Cholesterol Serum or plasma cholesterol in VLDL measurement (mass/volume)Ordered By: Myrna Bridges on 04-08-2023 Cholesterol in VLDL [Mass/Vol] 22 mg/dL 5-40 [facility] Serum or plasma creatinine m easurement (mass/volume)Ordered By: Melody Whitmore on 04-08-2023 Creatinine [Mass/Vol] 1.57 mg/dL 0.70-1.30 [facility] Comment on above: The validity of the calculated GFR & GFRAA in patients over 70 years has not been determined. Clinical correlation is essential. Serum or plasma low density lipoprotein (LDL) cholesterol measurement (mass/volume)Ordered By: Myrna Bridges on 04-08-2023 Cholesterol in LDL [Mass/Vol] 40 mg/dL 0-130 [facility] Serum or plasma urea nitroge n measurement (mass/volume)Ordered By: Melody Whitmore on 04-08-2023 Urea nitrogen [Mass/Vol] 30 mg/dL 7-18 [facility] Thin prep Papanicolaou smear with manual screeningOrdered By: Myrna Bridges on 04-08-2023 Thin prep Papanicolaou smear with manual screening 12 U/L 15-37 [facility] Thin prep Papanicolaou smear with manual screeningOrdered By: Melody Whitmore on 04-08-2023 Thin prep Papanicolaou smear with manual screening 6 5-15 [facility] Laboratory - Microbiology an d Antimicrobial susceptibilityOrdered By: Jose Hooks on 02-05-2023 SARS-CoV-2 (COVID-19) RNA [place]+probe Ql (Unsp spec) [facility] SARS-CoV-2 (COVID-19) RNA [place]+probe Ql (Unsp spec) [facility] No Panel InformationOrdered By: Jose Hooks on 02-05-2023 Influenza Types A,B Direct FA (CHRIS) [facility] Influenza Types A,B Direct FA (CHRIS) [facility] RSV Ag EIAOrdered By: Jose bull on 02-05-2023 RSV Ag Immune stain Ql (Tiss) [facility] RSV Ag Immune stain Ql (Tiss) [facility] Basophil percentageOrdered B y: Melody Whitmore on 01-06-2023 Bilirubin [Mass/Vol] 1.00 mg/dL 0.20-1.00 [facility] Comment on above: For patients on eltr ombopag therapy, use of Dimension [place] TBIL is not recommended. Chloride [Moles/Vol] 110 mmol/L 98-107 [facility] Glucose [Mass/Vol] 87 mg/dL 74-106 [facility] Potassium [Moles/Vol] 3.7 mmol/L 3.5-5.1 [facility] Protein [Mass/Vol] 5.5 g/dL 6.4-8.2 [facility] Sodium [Moles/Vol] 140 mmol/L 136-145 [facility] WBC (Bld) [#/Vol] 6.5 10*3/uL 4.4-11.0 [facility] Blood erythrocytes count (nu mber/volume)Ordered By: Melody Whitmore on 01-06-2023 RBC (Bld) [#/Vol] 4.31 10*6/uL 4.6-6.2 [facility] Blood hemoglobin measurement (mass/volume)Ordered By: Melody Whitmore on 01-06-2023 Hemoglobin (Bld) [Mass/Vol] 13.7 g/dL 13.0-16.5 [facility] Blood platelet mean volumeOr dered By: Melody Whitmore on 01-06-2023 Platelet mean volume (Bld) [Entitic vol] 9.3 fL 6.2-12.0 [facility] Determination of erythrocyte mean corpuscular volume (MCV)Ordered By: Melody Whitmore on 01-06-2023 MCV (RBC) [Entitic vol] 93.0 fL 80-94 [facility] Hematocrit Auto (Bld) [Volum e fraction]Ordered By: Melody Whitmore on 01-06-2023 Hematocrit (Bld) [Volume fraction] 40.1 % 40-54 [facility] Laboratory - Chemistry and C hemistry - challengeOrdered By: Melody Whitmore on 01-06-2023 ALP [Catalytic activity/Vol] 60 U/L 45-117 [facility] ALT [Catalytic activity/Vol] 29 U/L 16-61 [facility] CO2 [Moles/Vol] 26.0 mmol/L 21.0-32.0 [facility] Globulin (S) [Mass/Vol] 2.7 g/dL 2.2-4.2 [facility] Urea nitrogen/Creatinine [Mass ratio] 14.5 mg/mg 10-20 [facility] Laboratory - Hematology and Cell countsOrdered By: Melody Whitmore on 01-06-2023 Erythrocyte distribution width (RBC) [Entitic vol] 42.2 fL 35.1-43.9 [facility] Erythrocyte distribution width (RBC) [Ratio] 12.2 % 11.6-14.6 [facility] MCH (RBC) [Entitic mass] 31.8 pg 27.0-32.0 [facility] MCHC Auto (RBC) [Mass/Vol]Or dered By: Melody Whitmore on 01-06-2023 MCHC (RBC) [Mass/Vol] 34.2 g/dL 32-36 [facility] No Panel InformationOrdered By: Melody Whitmore on 01-06-2023 Estimated Creatinine Clearance Calc 51.99 ml/min [facility] Estimated GFR (MDRD) Amer 77 mL/min >60 [facility] Comment on above: GFR Calc Estimated GFR (MDRD) Non-Af Amer 64 mL/min >60 [facility] Comment on above: Non- GFR Calc Platelets bldOrdered By: Latoya Whitmore on 01-06-2023 Platelets (Bld) [#/Vol] 252 10*3/uL 150-450 [facility] Serum or plasma albumin ambar urement (mass/volume)Ordered By: Melody Whitmore on 01-06-2023 Albumin [Mass/Vol] 2.8 g/dL 3.2-5.0 [facility] Serum or plasma albumin/glob ulin mass ratioOrdered By: Melody Whitmore on 01-06-2023 Albumin/Globulin [Mass ratio] 1.0 {ratio} 0.9-2.4 [facility] Serum or plasma calcium ambar urement (mass/volume)Ordered By: Melodyberny Whitmore on 01-06-2023 Calcium [Mass/Vol] 8.3 mg/dL 8.5-10.1 [facility] Serum or plasma creatinine m easurement (mass/volume)Ordered By: Melody Whitmore on 01-06-2023 Creatinine [Mass/Vol] 1.17 mg/dL 0.70-1.30 [facility] Comment on above: The validity of the calculated GFR & GFRAA in patients over 70 years has not been determined. Clinical correlation is essential. Serum or plasma urea nitroge n measurement (mass/volume)Ordered By: Melodyberny Whitmore on 01-06-2023 Urea nitrogen [Mass/Vol] 17 mg/dL 7-18 [facility] Thin prep Papanicolaou smear with manual screeningOrdered By: Melodyberny Whitmore on 01-06-2023 Thin prep Papanicolaou smear with manual screening 20 U/L 15-37 [facility] Thin prep Papanicolaou smear with manual screening 4 5-15 [facility] No Panel InformationOrdered By: Melody Whitmore on 01-05-2023 Activated Clotting Time 221 sec 74-137 [facility] Absolute lymphocyte countOrd ered By: Jose Hooks on 12-24-2022 Lymphocytes Auto (Unsp spec) [#/Vol] 1.28 10*3/uL 0.83-4.51 [facility] Basophil percentageOrdered B y: Jose Hooks on 12-24-2022 Basophils/100 WBC (Bld) 0.8 % 0-1 [facility] Bilirubin [Mass/Vol] 1.30 mg/dL 0.20-1.00 [facility] Comment on above: For patients on eltr ombopag therapy, use of Dimension [place] TBIL is not recommended. Chloride [Moles/Vol] 110 mmol/L 98-107 [facility] Eosinophils/100 WBC (Bld) 3.9 % 0-5 [facility] Glucose [Mass/Vol] 105 mg/dL 74-106 [facility] Comment on above: Fasting Glucose resu lt from 100 to 125 mg/dL suggests IMPAIRED HOMEOSTASIS per A.D.A. criteria. Neutrophils (Bld) [#/Vol] 4.0 10*3/uL 2.0-7.7 [facility] Neutrophils/100 WBC (Bld) 64.7 % 47-70 [facility] Potassium [Moles/Vol] 3.8 mmol/L 3.5-5.1 [facility] Protein [Mass/Vol] 6.4 g/dL 6.4-8.2 [facility] Sodium [Moles/Vol] 142 mmol/L 136-145 [facility] WBC (Bld) [#/Vol] 6.1 10*3/uL 4.4-11.0 [facility] Blood erythrocytes count (nu mber/volume)Ordered By: Jose Hooks on 12-24-2022 RBC (Bld) [#/Vol] 4.68 10*6/uL 4.6-6.2 [facility] Blood hemoglobin measurement (mass/volume)Ordered By: Jose Hooks on 12-24-2022 Hemoglobin (Bld) [Mass/Vol] 15.1 g/dL 13.0-16.5 [facility] Blood lymphocytes/100 leukoc ytesOrdered By: Jose Hooks on 12-24-2022 Lymphocytes/100 WBC (Bld) 20.9 % 19-41 [facility] Blood monocytes/100 leukocyt esOrdered By: Jose Hooks on 12-24-2022 Monocytes/100 WBC (Bld) 9.2 % 0-10 [facility] Blood platelet mean volumeOr dered By: Jose Hooks on 12-24-2022 Platelet mean volume (Bld) [Entitic vol] 9.7 fL 6.2-12.0 [facility] Determination of erythrocyte mean corpuscular volume (MCV)Ordered By: Jose Hooks on 12-24-2022 MCV (RBC) [Entitic vol] 97.6 fL 80-94 [facility] Hematocrit Auto (Bld) [Volum e fraction]Ordered By: Jose Hooks on 12-24-2022 Hematocrit (Bld) [Volume fraction] 45.7 % 40-54 [facility] Laboratory - Chemistry and C hemistry - challengeOrdered By: Jose Hooks on 12-24-2022 ALP [Catalytic activity/Vol] 62 U/L 45-117 [facility] ALT [Catalytic activity/Vol] 20 U/L 16-61 [facility] CO2 [Moles/Vol] 27.0 mmol/L 21.0-32.0 [facility] Globulin (S) [Mass/Vol] 3.3 g/dL 2.2-4.2 [facility] Urea nitrogen/Creatinine [Mass ratio] 14.7 mg/mg 10-20 [facility] Laboratory - Hematology and Cell countsOrdered By: Jose Hooks on 12-24-2022 Erythrocyte distribution width (RBC) [Entitic vol] 45.3 fL 35.1-43.9 [facility] Erythrocyte distribution width (RBC) [Ratio] 12.6 % 11.6-14.6 [facility] Immature granulocytes/100 WBC (Bld) 0.500 % 0.0-0.9 [facility] Comment on above: IG% - Immature Granu locytes (promyelocytes, myelocytes and metamyelocytes) > 1% indicates that a LEFT SHIFT is Present. MCH (RBC) [Entitic mass] 32.3 pg 27.0-32.0 [facility] Nucleated RBC/100 WBC (Bld) [Ratio] 0 % 0-5 [facility] MCHC Auto (RBC) [Mass/Vol]Or dered By: Jose Hooks on 12-24-2022 MCHC (RBC) [Mass/Vol] 33.0 g/dL 32-36 [facility] No Panel InformationOrdered By: Jose Hooks on 12-24-2022 Estimated GFR (MDRD) Amer 58 mL/min >60 [facility] Comment on above: GFR Calc Estimated GFR (MDRD) Non-Af Amer 48 mL/min >60 [facility] Comment on above: Non- GFR Calc Thyroid Stimulating Hormone (TSH) 0.78 uIU/mL 0.358-3.74 [facility] Vitamin D 25-Hydroxy 84.7 ng/mL [facility] Comment on above: Vitamin D 25(OH) Sta tus Range Deficiency <20 ng/mL (50nmol/L) Insufficiency 20 - 30 ng/mL (50 - 75 nmol/L) Sufficiency 30 - 100 ng/mL (75 - 250 nmol/L) Toxicity >100 ng/mL (>250 nmol/L) Platelets bldOrdered By: Jose Hooks on 12-24-2022 Platelets (Bld) [#/Vol] 316 10*3/uL 150-450 [facility] Serum or plasma albumin ambar urement (mass/volume)Ordered By: Jose Hooks on 12-24-2022 Albumin [Mass/Vol] 3.1 g/dL 3.2-5.0 [facility] Serum or plasma albumin/glob ulin mass ratioOrdered By: Jose Hooks on 12-24-2022 Albumin/Globulin [Mass ratio] 0.9 {ratio} 0.9-2.4 [facility] Serum or plasma calcium ambar urement (mass/volume)Ordered By: Jose Hooks on 12-24-2022 Calcium [Mass/Vol] 8.7 mg/dL 8.5-10.1 [facility] Serum or plasma creatinine m easurement (mass/volume)Ordered By: Jose Hooks 12-24-2022 Creatinine [Mass/Vol] 1.50 mg/dL 0.70-1.30 [facility] Comment on above: The validity of the calculated GFR & GFRAA in patients over 70 years has not been determined. Clinical correlation is essential. Serum or plasma urea nitroge n measurement (mass/volume)Ordered By: Jose Hooks on 12-24-2022 Urea nitrogen [Mass/Vol] 22 mg/dL 7-18 [facility] Thin prep Papanicolaou smear with manual screeningOrdered By: Jose Hooks on 12-24-2022 Thin prep Papanicolaou smear with manual screening 12 U/L 15-37 [facility] Thin prep Papanicolaou smear with manual screening 5 5-15 [facility] Absolute lymphocyte countOrd ered By: Emre Hussein on 11-17-2022 Lymphocytes Auto (Unsp spec) [#/Vol] 0.94 10*3/uL 0.83-4.51 [facility] Basophil percentageOrdered B y: Emre Hussein on 11-17-2022 Basophils/100 WBC (Bld) 0.2 % 0-1 [facility] Chloride [Moles/Vol] 110 mmol/L 98-107 [facility] Eosinophils/100 WBC (Bld) 0.0 % 0-5 [facility] Glucose [Mass/Vol] 114 mg/dL 74-106 [facility] Comment on above: Fasting Glucose resu lt from 100 to 125 mg/dL suggests IMPAIRED HOMEOSTASIS per A.D.A. criteria. Neutrophils (Bld) [#/Vol] 9.0 10*3/uL 2.0-7.7 [facility] Neutrophils/100 WBC (Bld) 82.4 % 47-70 [facility] Potassium [Moles/Vol] 4.5 mmol/L 3.5-5.1 [facility] Sodium [Moles/Vol] 143 mmol/L 136-145 [facility] WBC (Bld) [#/Vol] 10.9 10*3/uL 4.4-11.0 [facility] Blood erythrocytes count (nu mber/volume)Ordered By: Emre Hussein on 11-17-2022 RBC (Bld) [#/Vol] 4.64 10*6/uL 4.6-6.2 [facility] Blood hemoglobin measurement (mass/volume)Ordered By: Emre Hussein on 11-17-2022 Hemoglobin (Bld) [Mass/Vol] 14.5 g/dL 13.0-16.5 [facility] Blood lymphocytes/100 leukoc ytesOrdered By: Emre Hussein on 11-17-2022 Lymphocytes/100 WBC (Bld) 8.6 % 19-41 [facility] Blood monocytes/100 leukocyt esOrdered By: Emre Hussein on 11-17-2022 Monocytes/100 WBC (Bld) 7.6 % 0-10 [facility] Blood platelet mean volumeOr dered By: Emre Hussein on 11-17-2022 Platelet mean volume (Bld) [Entitic vol] 9.5 fL 6.2-12.0 [facility] Determination of erythrocyte mean corpuscular volume (MCV)Ordered By: Emre Hussein on 11-17-2022 MCV (RBC) [Entitic vol] 94.6 fL 80-94 [facility] Hematocrit Auto (Bld) [Volum e fraction]Ordered By: Emre Hussein on 11-17-2022 Hematocrit (Bld) [Volume fraction] 43.9 % 40-54 [facility] Laboratory - Chemistry and C hemistry - challengeOrdered By: Emre Hussein on 11-17-2022 CO2 [Moles/Vol] 29.0 mmol/L 21.0-32.0 [facility] Urea nitrogen/Creatinine [Mass ratio] 23.7 mg/mg 10-20 [facility] Laboratory - Hematology and Cell countsOrdered By: Emre Hussein on 11-17-2022 Erythrocyte distribution width (RBC) [Entitic vol] 43.5 fL 35.1-43.9 [facility] Erythrocyte distribution width (RBC) [Ratio] 12.4 % 11.6-14.6 [facility] Immature granulocytes/100 WBC (Bld) 1.200 % 0.0-0.9 [facility] Comment on above: IG% - Immature Granu locytes (promyelocytes, myelocytes and metamyelocytes) > 1% indicates that a LEFT SHIFT is Present. MCH (RBC) [Entitic mass] 31.3 pg 27.0-32.0 [facility] Nucleated RBC/100 WBC (Bld) [Ratio] 0 % 0-5 [facility] MCHC Auto (RBC) [Mass/Vol]Or dered By: Emre Hussein on 11-17-2022 MCHC (RBC) [Mass/Vol] 33.0 g/dL 32-36 [facility] No Panel InformationOrdered By: Emre Hussein on 11-17-2022 Estimated Creatinine Clearance Calc 45.14 ml/min [facility] Estimated GFR (MDRD) Amer 63 mL/min >60 [facility] Comment on above: GFR Calc Estimated GFR (MDRD) Non-Af Amer 52 mL/min >60 [facility] Comment on above: Non- GFR Calc Troponin I High Sensitivity 8 pg/mL 3.0-78.0 [facility] Comment on above: Please Note: [place] t Units and Gender Specific Reference Ranges. For more information see Policy Stat Procedure [place] High Sensitivity Troponin (TNIH) and attachments. Platelets bldOrdered By: Jose Hussein on 11-17-2022 Platelets (Bld) [#/Vol] 306 10*3/uL 150-450 [facility] Serum or plasma calcium ambar urement (mass/volume)Ordered By: Emre Hussein on 11-17-2022 Calcium [Mass/Vol] 9.2 mg/dL 8.5-10.1 [facility] Serum or plasma creatinine m easurement (mass/volume)Ordered By: Emre Hussein on 11-17-2022 Creatinine [Mass/Vol] 1.39 mg/dL 0.70-1.30 [facility] Comment on above: The validity of the calculated GFR & GFRAA in patients over 70 years has not been determined. Clinical correlation is essential. Serum or plasma urea nitroge n measurement (mass/volume)Ordered By: Emre Hussein on 11-17-2022 Urea nitrogen [Mass/Vol] 33 mg/dL 7-18 [facility] Thin prep Papanicolaou smear with manual screeningOrdered By: Emre Hussein on 11-17-2022 Thin prep Papanicolaou smear with manual screening 4 5-15 [facility] Basophil percentageOrdered B y: Dr. Whitmore on 11-06-2022 Bilirubin [Mass/Vol] 1.40 mg/dL 0.20-1.00 [facility] Comment on above: For patients on eltr ombopag therapy, use of Dimension [place] TBIL is not recommended. Chloride [Moles/Vol] 103 mmol/L 98-107 [facility] Cholesterol [Mass/Vol] 242 mg/dL <200 [facility] Comment on above: <200 mg/dL Desirable 200-240 mg/dL Borderline >240 mg/dL High Risk Glucose [Mass/Vol] 113 mg/dL 74-106 [facility] Comment on above: Fasting Glucose resu lt from 100 to 125 mg/dL suggests IMPAIRED HOMEOSTASIS per A.D.A. criteria. Potassium [Moles/Vol] 4.0 mmol/L 3.5-5.1 [facility] Protein [Mass/Vol] 7.1 g/dL 6.4-8.2 [facility] Sodium [Moles/Vol] 142 mmol/L 136-145 [facility] Triglyceride [Mass/Vol] 247 mg/dL <199 [facility] Comment on above: The drugs N-Acetylcy steine and Metamizole may falsely depress this assay.Serum Triglycerides Reference Interval Normal <150 mg/dL Borderline high 150 - 199 mg/dL High 200 - 499 mg/dL Very High > or = 500 mg/dL Laboratory - Chemistry and C hemistry - challengeOrdered By: Dr. Whitmore on 11-06-2022 ALP [Catalytic activity/Vol] 79 U/L 45-117 [facility] ALT [Catalytic activity/Vol] 25 U/L 16-61 [facility] CO2 [Moles/Vol] 31.0 mmol/L 21.0-32.0 [facility] Globulin (S) [Mass/Vol] 3.7 g/dL 2.2-4.2 [facility] Natriuretic peptide B (Bld) [Mass/Vol] 59.8 pg/mL 0-100 [facility] Urea nitrogen/Creatinine [Mass ratio] 23.4 mg/mg 10-20 [facility] No Panel InformationOrdered By: Dr. Whitmore on 11-06-2022 Estimated GFR (MDRD) Amer 46 mL/min >60 [facility] Comment on above: GFR Calc Estimated GFR (MDRD) Non-Af Amer 38 mL/min >60 [facility] Comment on above: Non- GFR Calc Serum or plasma albumin ambar urement (mass/volume)Ordered By: Dr. Whitmore on 11-06-2022 Albumin [Mass/Vol] 3.4 g/dL 3.2-5.0 [facility] Serum or plasma albumin/glob ulin mass ratioOrdered By: Dr. Whitmore on 11-06-2022 Albumin/Globulin [Mass ratio] 0.9 {ratio} 0.9-2.4 [facility] Serum or plasma calcium ambar urement (mass/volume)Ordered By: Dr. Whitmore on 11-06-2022 Calcium [Mass/Vol] 9.1 mg/dL 8.5-10.1 [facility] Serum or plasma cholesterol in HDL measurement (mass/volume)Ordered By: Dr. Whitmore on 11-06-2022 Cholesterol in HDL [Mass/Vol] 37 mg/dL >40 [facility] Comment on above: The drugs N-Acetylcy steine and Metamizole may falsely depress this assay. Reference Range HDL <40 mg/dL Low HDL Cholesterol HDL >or= 60 mg/dL High HDL Cholesterol Serum or plasma cholesterol in VLDL measurement (mass/volume)Ordered By: Dr. Whitmore on 11-06-2022 Cholesterol in VLDL [Mass/Vol] 49 mg/dL 5-40 [facility] Serum or plasma creatinine m easurement (mass/volume)Ordered By: Dr. Whitmore on 11-06-2022 Creatinine [Mass/Vol] 1.84 mg/dL 0.70-1.30 [facility] Comment on above: The validity of the calculated GFR & GFRAA in patients over 70 years has not been determined. Clinical correlation is essential. Serum or plasma low density lipoprotein (LDL) cholesterol measurement (mass/volume)Ordered By: Dr. Whitmore on 11-06-2022 Cholesterol in LDL [Mass/Vol] 156 mg/dL 0-130 [facility] Serum or plasma urea nitroge n measurement (mass/volume)Ordered By: Dr. Whitmore on 11-06-2022 Urea nitrogen [Mass/Vol] 43 mg/dL 7-18 [facility] Thin prep Papanicolaou smear with manual screeningOrdered By: Dr. Whitmore on 11-06-2022 Thin prep Papanicolaou smear with manual screening 14 U/L 15-37 [facility] Thin prep Papanicolaou smear with manual screening 8 5-15 [facility] Basophil percentageOrdered B y: Myrna Bridges on 10-30-2022 Bilirubin [Mass/Vol] 1.20 mg/dL 0.20-1.00 [facility] Comment on above: For patients on eltr ombopag therapy, use of Dimension [place] TBIL is not recommended. Chloride [Moles/Vol] 112 mmol/L 98-107 [facility] Glucose [Mass/Vol] 75 mg/dL 74-106 [facility] Potassium [Moles/Vol] 4.3 mmol/L 3.5-5.1 [facility] Protein [Mass/Vol] 6.3 g/dL 6.4-8.2 [facility] Sodium [Moles/Vol] 145 mmol/L 136-145 [facility] WBC (Bld) [#/Vol] 7.0 10*3/uL 4.4-11.0 [facility] Blood erythrocytes count (nu mber/volume)Ordered By: Myrna Bridges on 10-30-2022 RBC (Bld) [#/Vol] 4.89 10*6/uL 4.6-6.2 [facility] Blood hemoglobin measurement (mass/volume)Ordered By: Myrna Bridges on 10-30-2022 Hemoglobin (Bld) [Mass/Vol] 15.4 g/dL 13.0-16.5 [facility] Blood platelet mean volumeOr dered By: Myrna Bridges on 10-30-2022 Platelet mean volume (Bld) [Entitic vol] 9.5 fL 6.2-12.0 [facility] Determination of erythrocyte mean corpuscular volume (MCV)Ordered By: Myrna Bridges on 10-30-2022 MCV (RBC) [Entitic vol] 96.1 fL 80-94 [facility] Hematocrit Auto (Bld) [Volum e fraction]Ordered By: Myrna Bridges on 10-30-2022 Hematocrit (Bld) [Volume fraction] 47.0 % 40-54 [facility] Laboratory - Chemistry and C hemistry - challengeOrdered By: Myrna Bridges on 10-30-2022 ALP [Catalytic activity/Vol] 64 U/L 45-117 [facility] ALT [Catalytic activity/Vol] 17 U/L 16-61 [facility] CO2 [Moles/Vol] 28.0 mmol/L 21.0-32.0 [facility] Globulin (S) [Mass/Vol] 3.2 g/dL 2.2-4.2 [facility] Magnesium [Mass/Vol] 2.6 mg/dL 1.6-2.6 [facility] Natriuretic peptide B (Bld) [Mass/Vol] 290.8 pg/mL 0-100 [facility] T4 [Mass/Vol] 11.5 ug/dL 4.5-12.1 [facility] Urea nitrogen/Creatinine [Mass ratio] 16.4 mg/mg 10-20 [facility] Laboratory - Hematology and Cell countsOrdered By: Myrna Bridges on 10-30-2022 Erythrocyte distribution width (RBC) [Entitic vol] 45.2 fL 35.1-43.9 [facility] Erythrocyte distribution width (RBC) [Ratio] 12.6 % 11.6-14.6 [facility] MCH (RBC) [Entitic mass] 31.5 pg 27.0-32.0 [facility] MCHC Auto (RBC) [Mass/Vol]Or dered By: Myrna Bridges on 10-30-2022 MCHC (RBC) [Mass/Vol] 32.8 g/dL 32-36 [facility] No Panel InformationOrdered By: Myrna Bridges on 10-30-2022 Estimated GFR (MDRD) Amer 66 mL/min >60 [facility] Comment on above: GFR Calc Estimated GFR (MDRD) Non-Af Amer 55 mL/min >60 [facility] Comment on above: Non- GFR Calc Thyroid Stimulating Hormone (TSH) 0.90 uIU/mL 0.358-3.74 [facility] Platelets bldOrdered By: Gopal Bridges on 10-30-2022 Platelets (Bld) [#/Vol] 287 10*3/uL 150-450 [facility] Serum or plasma albumin ambar urement (mass/volume)Ordered By: Myrna Bridges on 10-30-2022 Albumin [Mass/Vol] 3.1 g/dL 3.2-5.0 [facility] Serum or plasma albumin/glob ulin mass ratioOrdered By: Myrna Bridges on 10-30-2022 Albumin/Globulin [Mass ratio] 1.0 {ratio} 0.9-2.4 [facility] Serum or plasma calcium ambar urement (mass/volume)Ordered By: Myrna Bridges on 10-30-2022 Calcium [Mass/Vol] 8.9 mg/dL 8.5-10.1 [facility] Serum or plasma creatinine m easurement (mass/volume)Ordered By: Myrna Bridges on 10-30-2022 Creatinine [Mass/Vol] 1.34 mg/dL 0.70-1.30 [facility] Comment on above: The validity of the calculated GFR & GFRAA in patients over 70 years has not been determined. Clinical correlation is essential. Serum or plasma urea nitroge n measurement (mass/volume)Ordered By: Myrna Bridges on 10-30-2022 Urea nitrogen [Mass/Vol] 22 mg/dL 7-18 [facility] Thin prep Papanicolaou smear with manual screeningOrdered By: Myrna Bridges on 10-30-2022 Thin prep Papanicolaou smear with manual screening 13 U/L 15-37 [facility] Thin prep Papanicolaou smear with manual screening 5 5-15 [facility] Basophil percentageOrdered B y: Dr. Ca on 09-09-2022 Basophil percentage 2.4 mg/dL 2.5-4.9 [facility] Chloride [Moles/Vol] 111 mmol/L 98-107 [facility] Glucose [Mass/Vol] 85 mg/dL 74-106 [facility] Potassium [Moles/Vol] 3.8 mmol/L 3.5-5.1 [facility] Sodium [Moles/Vol] 144 mmol/L 136-145 [facility] Laboratory - Chemistry and C hemistry - challengeOrdered By: Dr. Ca on 09-09-2022 CO2 [Moles/Vol] 28.0 mmol/L 21.0-32.0 [facility] Urea nitrogen/Creatinine [Mass ratio] 14.4 mg/mg 10-20 [facility] No Panel InformationOrdered By: Dr. Ca on 09-09-2022 Estimated GFR (MDRD) Amer 63 mL/min >60 [facility] Comment on above: GFR Calc Estimated GFR (MDRD) Non-Af Amer 52 mL/min >60 [facility] Comment on above: Non- GFR Calc Serum or plasma albumin ambar urement (mass/volume)Ordered By: Dr. Ca on 09-09-2022 Albumin [Mass/Vol] 3.0 g/dL 3.2-5.0 [facility] Serum or plasma calcium ambar urement (mass/volume)Ordered By: Dr. Ca on 09-09-2022 Calcium [Mass/Vol] 8.8 mg/dL 8.5-10.1 [facility] Serum or plasma creatinine m easurement (mass/volume)Ordered By: Dr. Ca on 09-09-2022 Creatinine [Mass/Vol] 1.39 mg/dL 0.70-1.30 [facility] Comment on above: The validity of the calculated GFR & GFRAA in patients over 70 years has not been determined. Clinical correlation is essential. Serum or plasma urea nitroge n measurement (mass/volume)Ordered By: Dr. Ca on 09-09-2022 Urea nitrogen [Mass/Vol] 20 mg/dL 7-18 [facility] No Panel InformationOrdered By: Dr. Hooks on 08-04-2022 Thyroid Stimulating Hormone (TSH) 2.28 uIU/mL 0.358-3.74 [facility] Culture, urineOrdered By: Xu Hooks on 07-24-2022 Bacteria identified Cx Nom (U) Culture exhibits no growth. [facility] COVID-19 virus antigen assay Ordered By: Dr. Hooks on 07-22-2022 SARS-CoV-2 (COVID-19) Ag IA.rapid Ql (Resp) Not detected Not Detect [facility] Comment on above: Normal Reference Ran [...] Cx Nom (U) Culture exhibits no growth. [facility] Absolute lymphocyte countOrd ered By: Dr. Hooks on 06-19-2022 Lymphocytes Auto (Unsp spec) [#/Vol] 1.23 10*3/uL 0.83-4.51 [facility] Basophil percentageOrdered B y: Dr. Hooks on 06-19-2022 Basophils/100 WBC (Bld) 0.7 % 0-1 [facility] Bilirubin [Mass/Vol] 0.90 mg/dL 0.20-1.00 [facility] Comment on above: Slight Lipemia, Resu lt may be falsely increased. For patients on eltrombopag therapy, use of Dimension [place] TBIL is not recommended. Chloride [Moles/Vol] 110 mmol/L 98-107 [facility] Eosinophils/100 WBC (Bld) 3.4 % 0-5 [facility] Glucose [Mass/Vol] 82 mg/dL 74-106 [facility] Comment on above: Slight Lipemia, Resu lt may be falsely increased. Neutrophils (Bld) [#/Vol] 4.5 10*3/uL 2.0-7.7 [facility] Neutrophils/100 WBC (Bld) 66.5 % 47-70 [facility] Potassium [Moles/Vol] 4.7 mmol/L 3.5-5.1 [facility] Comment on above: Slight Lipemia, Resu lt may be falsely increased. Protein [Mass/Vol] 6.6 g/dL 6.4-8.2 [facility] Comment on above: Slight Lipemia, Resu lt may be falsely increased. Sodium [Moles/Vol] 143 mmol/L 136-145 [facility] WBC (Bld) [#/Vol] 6.8 10*3/uL 4.4-11.0 [facility] Blood erythrocytes count (nu mber/volume)Ordered By: Dr. Hooks on 06-19-2022 RBC (Bld) [#/Vol] 4.65 10*6/uL 4.6-6.2 [facility] Blood hemoglobin measurement (mass/volume)Ordered By: Dr. Hoosk on 06-19-2022 Hemoglobin (Bld) [Mass/Vol] 15.2 g/dL 13.0-16.5 [facility] Blood lymphocytes/100 leukoc ytesOrdered By: Dr. Hooks on 06-19-2022 Lymphocytes/100 WBC (Bld) 18.0 % 19-41 [facility] Blood monocytes/100 leukocyt esOrdered By: Dr. Hooks on 06-19-2022 Monocytes/100 WBC (Bld) 11.3 % 0-10 [facility] Blood platelet mean volumeOr dered By: Dr. Hooks on 06-19-2022 Platelet mean volume (Bld) [Entitic vol] 10.0 fL 6.2-12.0 [facility] Determination of erythrocyte mean corpuscular volume (MCV)Ordered By: Dr. Hooks on 06-19-2022 MCV (RBC) [Entitic vol] 97.2 fL 80-94 [facility] Hematocrit Auto (Bld) [Volum e fraction]Ordered By: Dr. Hooks on 06-19-2022 Hematocrit (Bld) [Volume fraction] 45.2 % 40-54 [facility] Laboratory - Chemistry and C hemistry - challengeOrdered By: Dr. Hooks on 06-19-2022 ALP [Catalytic activity/Vol] 69 U/L 45-117 [facility] ALT [Catalytic activity/Vol] 23 U/L 16-61 [facility] Comment on above: Slight Lipemia, Resu lt may be falsely increased. CO2 [Moles/Vol] 30.0 mmol/L 21.0-32.0 [facility] Comment on above: Slight Lipemia, Resu lt may be falsely increased. Globulin (S) [Mass/Vol] 3.2 g/dL 2.2-4.2 [facility] Urea nitrogen/Creatinine [Mass ratio] 17.6 mg/mg 10-20 [facility] Laboratory - Hematology and Cell countsOrdered By: Dr. Hooks on 06-19-2022 Erythrocyte distribution width (RBC) [Entitic vol] 43.4 fL 35.1-43.9 [facility] Erythrocyte distribution width (RBC) [Ratio] 12.1 % 11.6-14.6 [facility] Immature granulocytes/100 WBC (Bld) 0.100 % 0.0-0.9 [facility] Comment on above: IG% - Immature Granu locytes (promyelocytes, myelocytes and metamyelocytes) > 1% indicates that a LEFT SHIFT is Present. MCH (RBC) [Entitic mass] 32.7 pg 27.0-32.0 [facility] Nucleated RBC/100 WBC (Bld) [Ratio] 0 % 0-5 [facility] MCHC Auto (RBC) [Mass/Vol]Or dered By: Dr. Hooks on 06-19-2022 MCHC (RBC) [Mass/Vol] 33.6 g/dL 32-36 [facility] No Panel InformationOrdered By: Dr. Hooks on 06-19-2022 Estimated GFR (MDRD) Amer 72 mL/min >60 [facility] Comment on above: GFR Calc Estimated GFR (MDRD) Non-Af Amer 59 mL/min >60 [facility] Comment on above: Non- GFR Calc Thyroid Stimulating Hormone (TSH) 3.95 uIU/mL 0.358-3.74 [facility] Vitamin D 25-Hydroxy 68.6 ng/mL [facility] Comment on above: Vitamin D 25(OH) Sta tus Range Deficiency <20 ng/mL (50nmol/L) Insufficiency 20 - 30 ng/mL (50 - 75 nmol/L) Sufficiency 30 - 100 ng/mL (75 - 250 nmol/L) Toxicity >100 ng/mL (>250 nmol/L) Platelets bldOrdered By: Dr. Hooks on 06-19-2022 Platelets (Bld) [#/Vol] 311 10*3/uL 150-450 [facility] Serum or plasma albumin ambar urement (mass/volume)Ordered By: Dr. Hooks on 06-19-2022 Albumin [Mass/Vol] 3.4 g/dL 3.2-5.0 [facility] Serum or plasma albumin/glob ulin mass ratioOrdered By: Dr. Hooks on 06-19-2022 Albumin/Globulin [Mass ratio] 1.1 {ratio} 0.9-2.4 [facility] Serum or plasma calcium ambar urement (mass/volume)Ordered By: Dr. Hooks on 06-19-2022 Calcium [Mass/Vol] 8.8 mg/dL 8.5-10.1 [facility] Comment on above: Slight Lipemia, Resu lt may be falsely increased. Serum or plasma creatinine m easurement (mass/volume)Ordered By: Dr. Hooks on 06-19-2022 Creatinine [Mass/Vol] 1.25 mg/dL 0.70-1.30 [facility] Comment on above: Slight Lipemia, Resu lt may be falsely increased.The validity of the calculated GFR & GFRAA in patients over 70 years has not been determined. Clinical correlation is essential. Serum or plasma urea nitroge n measurement (mass/volume)Ordered By: Dr. Hooks on 06-19-2022 Urea nitrogen [Mass/Vol] 22 mg/dL 7-18 [facility] Comment on above: Slight Lipemia, Resu lt may be falsely increased. Thin prep Papanicolaou smear with manual screeningOrdered By: Dr. Hooks on 06-19-2022 Thin prep Papanicolaou smear with manual screening 16 U/L 15-37 [facility] Comment on above: Slight Lipemia, Resu lt may be falsely increased. Thin prep Papanicolaou smear with manual screening 3 5-15 [facility] Basophil percentageOrdered B y: Rina Olivier on 04-04-2022 Chloride [Moles/Vol] 109 mmol/L 98-107 [facility] Glucose [Mass/Vol] 96 mg/dL 74-106 [facility] Potassium [Moles/Vol] 3.8 mmol/L 3.5-5.1 [facility] Sodium [Moles/Vol] 143 mmol/L 136-145 [facility] Laboratory - Chemistry and C hemistry - challengeOrdered By: Rina Olivier on 04-04-2022 CO2 [Moles/Vol] 27.0 mmol/L 21.0-32.0 [facility] Urea nitrogen/Creatinine [Mass ratio] 18.2 mg/mg 10- [facility] No Panel InformationOrdered By: Rina Olivier on 04-04-2022 Estimated GFR (MDRD) Amer 61 mL/min >60 [facility] Comment on above: GFR Calc Estimated GFR (MDRD) Non-Af Amer 51 mL/min >60 [facility] Comment on above: Non- GFR Calc Serum or plasma calcium ambar urement (mass/volume)Ordered By: Rina Olivier on 04-04-2022 Calcium [Mass/Vol] 9.1 mg/dL 8.5-10.1 [facility] Serum or plasma creatinine m easurement (mass/volume)Ordered By: Rina Olivier on 04-04-2022 Creatinine [Mass/Vol] 1.43 mg/dL 0.70-1.30 [facility] Comment on above: The validity of the calculated GFR & GFRAA in patients over 70 years has not been determined. Clinical correlation is essential. Serum or plasma urea nitroge n measurement (mass/volume)Ordered By: Rina Olivier on 04-04-2022 Urea nitrogen [Mass/Vol] 26 mg/dL -18 [facility] Thin prep Papanicolaou smear with manual screeningOrdered By: Rina Olivier on 04-04-2022 Thin prep Papanicolaou smear with manual screening 7 5-15 [facility] Basophil percentageOrdered B y: Rina Olivier on 03-18-2022 Chloride [Moles/Vol] 110 mmol/L 98-107 [facility] Glucose [Mass/Vol] 100 mg/dL 74-106 [facility] Comment on above: Fasting Glucose resu lt from 100 to 125 mg/dL suggests IMPAIRED HOMEOSTASIS per A.D.A. criteria. Potassium [Moles/Vol] 4.2 mmol/L 3.5-5.1 [facility] Sodium [Moles/Vol] 143 mmol/L 136-145 [facility] Laboratory - Chemistry and C hemistry - challengeOrdered By: Rina Olivier on 03-18-2022 CO2 [Moles/Vol] 29.0 mmol/L 21.0-32.0 [facility] Natriuretic peptide B (Bld) [Mass/Vol] 224.4 pg/mL 0-100 [facility] Urea nitrogen/Creatinine [Mass ratio] 21.1 mg/mg 10-20 [facility] No Panel InformationOrdered By: Rina Olivier on 03-18-2022 Estimated GFR (MDRD) Amer 73 mL/min >60 [facility] Comment on above: GFR Calc Estimated GFR (MDRD) Non-Af Amer 60 mL/min >60 [facility] Comment on above: Non- GFR Calc Serum or plasma calcium ambar urement (mass/volume)Ordered By: Rina Olivier on 03-18-2022 Calcium [Mass/Vol] 9.0 mg/dL 8.5-10.1 [facility] Serum or plasma creatinine m easurement (mass/volume)Ordered By: Rina Olivier on 03-18-2022 Creatinine [Mass/Vol] 1.23 mg/dL 0.70-1.30 [facility] Comment on above: The validity of the calculated GFR & GFRAA in patients over 70 years has not been determined. Clinical correlation is essential. Serum or plasma urea nitroge n measurement (mass/volume)Ordered By: Rina Olivier on 03-18-2022 Urea nitrogen [Mass/Vol] 26 mg/dL 12-16 [facility] Thin prep Papanicolaou smear with manual screeningOrdered By: Rina Olivier on 03-18-2022 Thin prep Papanicolaou smear with manual screening 4 - [facility] Absolute lymphocyte counton 12-19-2021 Lymphocytes Auto (Unsp spec) [#/Vol] 1.37 10*3/uL 0.83-4.51 [facility] Work Phone: Basophil percentageon 2021 Basophils/100 WBC (Bld) 0.8 % 0-1 [facility] Work Phone: Bilirubin [Mass/Vol] 1.00 mg/dL 0.20-1.00 [facility] Work Phone: Comment on above: For patients on eltr ombopag therapy, use of Dimension [place] TBIL is not recommended. Chloride [Moles/Vol] 112 mmol/L 98-107 [facility] Work Phone: Eosinophils/100 WBC (Bld) 2.2 % 0-5 [facility] Work Phone: Glucose [Mass/Vol] 96 mg/dL 74-106 [facility] Work Phone: Neutrophils (Bld) [#/Vol] 4.1 10*3/uL 2.0-7.7 [facility] Work Phone: Neutrophils/100 WBC (Bld) 63.2 % 47-70 [facility] Work Phone: Potassium [Moles/Vol] 4.3 mmol/L 3.5-5.1 [facility] Work Phone: Protein [Mass/Vol] 6.6 g/dL 6.4-8.2 [facility] Work Phone: Sodium [Moles/Vol] 143 mmol/L 136-145 [facility] Work Phone: WBC (Bld) [#/Vol] 6.5 10*3/uL 4.4-11.0 [facility] Work Phone: Blood erythrocytes count (nu mber/volume)on 12-19-2021 RBC (Bld) [#/Vol] 4.28 10*6/uL 4.6-6.2 [facility] Work Phone: Blood hemoglobin measurement (mass/volume)on 12-19-2021 Hemoglobin (Bld) [Mass/Vol] 13.5 g/dL 13.0-16.5 [facility] Work Phone: Blood lymphocytes/100 leukoc yteson 12-19-2021 Lymphocytes/100 WBC (Bld) 21.2 % 19-41 [facility] Work Phone: Blood monocytes/100 leukocyt eson 12-19-2021 Monocytes/100 WBC (Bld) 12.1 % 0-10 [facility] Work Phone: Blood platelet mean volumeon 12-19-2021 Platelet mean volume (Bld) [Entitic vol] 9.6 fL 6.2-12.0 [facility] Work Phone: Determination of erythrocyte mean corpuscular volume (MCV)on 12-19-2021 MCV (RBC) [Entitic vol] 96.5 fL 80-94 [facility] Work Phone: Hematocrit Auto (Bld) [Volum e fraction]on 12-19-2021 Hematocrit (Bld) [Volume fraction] 41.3 % 40-54 [facility] Work Phone: Laboratory - Chemistry and C hemistry - challengeon 12-19-2021 ALP [Catalytic activity/Vol] 56 U/L 45-117 [facility] Work Phone: ALT [Catalytic activity/Vol] 17 U/L 16-61 [facility] Work Phone: CO2 [Moles/Vol] 25.0 mmol/L 21.0-32.0 [facility] Work Phone: Globulin (S) [Mass/Vol] 3.5 g/dL 2.2-4.2 [facility] Work Phone: Urea nitrogen/Creatinine [Mass ratio] 15.6 mg/mg 10-20 [facility] Work Phone: Laboratory - Hematology and Cell countson 12-19-2021 Erythrocyte distribution width (RBC) [Entitic vol] 45.8 fL 35.1-43.9 [facility] Work Phone: Erythrocyte distribution width (RBC) [Ratio] 13.1 % 11.6-14.6 [facility] Work Phone: Immature granulocytes/100 WBC (Bld) 0.500 % 0.0-0.9 [facility] Work Phone: Comment on above: IG% - Immature Granu locytes (promyelocytes, myelocytes and metamyelocytes) > 1% indicates that a LEFT SHIFT is Present. MCH (RBC) [Entitic mass] 31.5 pg 27.0-32.0 [facility] Work Phone: Nucleated RBC/100 WBC (Bld) [Ratio] 0 % 0-5 [facility] Work Phone: MCHC Auto (RBC) [Mass/Vol]on 12-19-2021 MCHC (RBC) [Mass/Vol] 32.7 g/dL 32-36 [facility] Work [facility]: No Panel Informationon 12-19 Estimated GFR (MDRD) Amer 70 mL/min >60 [facility] Work Phone: Comment on above: GFR Calc Estimated GFR (MDRD) Non-Af Amer 58 mL/min >60 [facility] Work Phone: Comment on above: Non- GFR Calc Thyroid Stimulating Hormone (TSH) 1.72 uIU/mL 0.358-3.74 [facility] Work Phone: Vitamin D 25-Hydroxy 40.9 ng/mL [facility] Work Phone: Comment on above: Vitamin D 25(OH) Sta tus Range Deficiency <20 ng/mL (50nmol/L) Insufficiency 20 - 30 ng/mL (50 - 75 nmol/L) Sufficiency 30 - 100 ng/mL (75 - 250 nmol/L) Toxicity >100 ng/mL (>250 nmol/L) Platelets bldon 12-19-2021 Platelets (Bld) [#/Vol] 334 10*3/uL 150-450 [facility] Work Phone: Serum or plasma albumin ambar urement (mass/volume)on 12-19-2021 Albumin [Mass/Vol] 3.1 g/dL 3.2-5.0 [facility] Work Phone: Serum or plasma albumin/glob ulin mass ratioon 12-19-2021 Albumin/Globulin [Mass ratio] 0.9 {ratio} 0.9-2.4 [facility] Work Phone: Serum or plasma calcium ambar urement (mass/volume)on 12-19-2021 Calcium [Mass/Vol] 8.9 mg/dL 8.5-10.1 [facility] Work Phone: Serum or plasma creatinine m easurement (mass/volume)on 12-19-2021 Creatinine [Mass/Vol] 1.28 mg/dL 0.70-1.30 [facility] Work Phone: Comment on above: The validity of the calculated GFR & GFRAA in patients over 70 years has not been determined. Clinical correlation is essential. Serum or plasma urea nitroge n measurement (mass/volume)on 12-19-2021 Urea nitrogen [Mass/Vol] 20 mg/dL 7-18 [facility] Work Phone: Thin prep Papanicolaou smear with manual screeningon 12-19-2021 Thin prep Papanicolaou smear with manual screening 20 U/L 15-37 [facility] Work Phone: Thin prep Papanicolaou smear with manual screening 6 5-15 [facility] Work Phone: Basophil percentageon 2021 Basophil percentage 2.4 mg/dL 2.5-4.9 [facility] Work Phone: Chloride [Moles/Vol] 112 mmol/L 98-107 [facility] Work Phone: Glucose [Mass/Vol] 87 mg/dL 74-106 [facility] Work Phone: Potassium [Moles/Vol] 3.7 mmol/L 3.5-5.1 [facility] Work Phone: Sodium [Moles/Vol] 141 mmol/L 136-145 [facility] Work Phone: Laboratory - Chemistry and C hemistry - challengeon 12-05-2021 CO2 [Moles/Vol] 22.0 mmol/L 21.0-32.0 [facility] Work Phone: Urea nitrogen/Creatinine [Mass ratio] 16.5 mg/mg 10-20 [facility] Work Phone: No Panel Informationon 12-05 Estimated GFR (MDRD) Amer 84 mL/min >60 [facility] Work Phone: Comment on above: GFR Calc Estimated GFR (MDRD) Non-Af Amer 69 mL/min >60 [facility] Work Phone: Comment on above: Non- GFR Calc Serum or plasma albumin ambar urement (mass/volume)on 12-05-2021 Albumin [Mass/Vol] 2.9 g/dL 3.2-5.0 [facility] Work Phone: Serum or plasma calcium ambar urement (mass/volume)on 12-05-2021 Calcium [Mass/Vol] 8.5 mg/dL 8.5-10.1 [facility] Work Phone: Serum or plasma creatinine m easurement (mass/volume)on 12-05-2021 Creatinine [Mass/Vol] 1.09 mg/dL 0.70-1.30 [facility] [facility] Work Phone: Comment on above: The validity of the calculated GFR & GFRAA in patients over 70 years has not been determined. Clinical correlation is essential. Serum or plasma urea nitroge n measurement (mass/volume)on 12-05-2021 Urea nitrogen [Mass/Vol] 18 mg/dL 7-18 [facility] Work Phone: Basophil percentageon 2021 Basophil percentage < 0.2 AI 0.0-0.9 [facility] Work Phone: Dilute Steve's viper venom timeon 10-15-2021 dRVVT Coag (PPP) [Time] 59.3 s 0.0-47.0 [facility] Work Phone: No Panel Informationon 10-15 Centromere B Antibody <0.2 AI 0.0-0.9 [facility] Work Phone: Miscellaneous Test See comment [facility] Work Phone: Comment on above: TEST RESULT UNITS RE F INTERVALRheumatoid Arthritis ProfileRheumatoid Factor (RF) 11.2 IU/mL <14.0Anti-CCP Ab, IgG/IgA 8 units 0-19 Negative <20 Weak positive 20 - 39 Moderate positive 40 - 59 Strong positive >59 TESTING PERFORMED AT [facility]. ORIGINAL REPORT ON FILE IN LAB CONTAINS ADDITIONAL TEST SITE INFORMATION. [employer] Antibody 0.2 AI 0.0-0.9 [facility] Work Phone: Serum DNA double strand anti body assay (units/volume)on 10-15-2021 DNA double strand Ab Qn (S) 5 [IU]/mL 0-9 [facility] Work Phone: Comment on above: Negative <5 Equivoca l 5 - 9 Positive >9 Serum Rosa-1 antibody assay (u nits/volume)on 10-15-2021 Rosa-1 extractable nuclear Ab Qn (S) <0.2 AI 0.0-0.9 [facility] Work Phone: Serum Scl-70 extractable nuc lear antibody assay (units/volume)on 10-15-2021 SCL-70 extractable nuclear Ab Qn (S) 0.2 AI 0.0-0.9 [facility] Work Phone: Serum Cam extractable nucl ear antibody detectionon 10-15-2021 Cam extractable nuclear Ab Ql (S) <0.2 AI 0.0-0.9 [facility] Work Phone: Thin prep Papanicolaou smear with manual screeningon 10-15-2021 Thin prep Papanicolaou smear with manual screening 50.5 sec 0.0-47.6 [facility] Work Phone: Thin prep Papanicolaou smear with manual screening 1.10 Ratio 0.00-1.34 [facility] Work Phone: Thin prep Papanicolaou smear with manual screening 38.2 sec 0.0-51.9 [facility] Work Phone: Thin prep Papanicolaou smear with manual screening Comment: . [facility] Work Phone: Comment on above: No lupus anticoagula nt was detected. PTT-LA and dRVVT results areconsistent with specific inhibitors to one or more common pathway factors(X, V, II or fibrinogen). The dPT was extended but the dPT confirmatoryratio was normal. As antibody titers may fluctuate with time, repeattesting may be indicated and ideally should be performed in the absence ofanticoagulant therapy.Performed [facility] [place], [place] [id number] Director: Kunal Cruz MD, Phone: [phone] Thrombin time in platelet po or plasmaon 10-15-2021 Thrombin time Coag (PPP) [Time] 18.6 sec 0.0-23.0 [facility] Work Phone: Basophil percentageon 2021 Basophil percentage 3.2 mg/dL 2.5-4.9 [facility] Work Phone: Chloride [Moles/Vol] 108 mmol/L 98-107 [facility] Work Phone: Glucose [Mass/Vol] 107 mg/dL 74-106 [facility] Work Phone: Comment on above: Fasting Glucose resu lt from 100 to 125 mg/dL suggests IMPAIRED HOMEOSTASIS per A.D.A. criteria. Potassium [Moles/Vol] 4.1 mmol/L 3.5-5.1 [facility] Work Phone: Sodium [Moles/Vol] 142 mmol/L 136-145 [facility] Work Phone: WBC (Bld) [#/Vol] 6.8 10*3/uL 4.4-11.0 [facility] Work Phone: Blood erythrocytes count (nu mber/volume)on 10-10-2021 RBC (Bld) [#/Vol] 4.55 10*6/uL 4.6-6.2 [facility] Work Phone: Blood hemoglobin measurement (mass/volume)on 10-10-2021 Hemoglobin (Bld) [Mass/Vol] 13.9 g/dL 13.0-16.5 [facility] Work Phone: Blood platelet mean volumeon 10-10-2021 Platelet mean volume (Bld) [Entitic vol] 9.3 fL 6.2-12.0 [facility] Work Phone: Determination of erythrocyte mean corpuscular volume (MCV)on 10-10-2021 MCV (RBC) [Entitic vol] 91.2 fL 80-94 [facility] Work Phone: Hematocrit Auto (Bld) [Volum e fraction]on 10-10-2021 Hematocrit (Bld) [Volume fraction] 41.5 % 40-54 [facility] Work Phone: Laboratory - Chemistry and C hemistry - challengeon 10-10-2021 CO2 [Moles/Vol] 28.0 mmol/L 21.0-32.0 [facility] Work Phone: Urea nitrogen/Creatinine [Mass ratio] 20.3 mg/mg 10-20 [facility] Work Phone: Laboratory - Hematology and Cell countson 10-10-2021 Erythrocyte distribution width (RBC) [Entitic vol] 48.0 fL 35.1-43.9 [facility] Work Phone: Erythrocyte distribution width (RBC) [Ratio] 14.2 % 11.6-14.6 [facility] Work Phone: MCH (RBC) [Entitic mass] 30.5 pg 27.0-32.0 [facility] Work Phone: MCHC Auto (RBC) [Mass/Vol]on 10-10-2021 MCHC (RBC) [Mass/Vol] 33.5 g/dL 32-36 [facility] Work Phone: No Panel Informationon 10-10 Estimated GFR (MDRD) Amer 59 mL/min >60 [facility] Work Phone: Comment on above: GFR Calc Estimated GFR (MDRD) Non-Af Amer 49 mL/min >60 [facility] Work Phone: Comment on above: Non- GFR Calc Platelets bldon 10-10-2021 Platelets (Bld) [#/Vol] 364 10*3/uL 150-450 [facility] Work Phone: Serum or plasma albumin ambar urement (mass/volume)on 10-10-2021 Albumin [Mass/Vol] 2.7 g/dL 3.2-5.0 [facility] Work Phone: Serum or plasma calcium ambar urement (mass/volume)on 10-10-2021 Calcium [Mass/Vol] 9.5 mg/dL 8.5-10.1 [facility] Work Phone: Serum or plasma creatinine m easurement (mass/volume)on 10-10-2021 Creatinine [Mass/Vol] 1.48 mg/dL 0.70-1.30 [facility] Work Phone: Comment on above: The validity of the calculated GFR & GFRAA in patients over 70 years has not been determined. Clinical correlation is essential. Serum or plasma urea nitroge n measurement (mass/volume)on 10-10-2021 Urea nitrogen [Mass/Vol] 30 mg/dL 7-18 [facility] Work Phone: Absolute lymphocyte counton 09-18-2021 Lymphocytes Auto (Unsp spec) [#/Vol] 0.61 10*3/uL 0.83-4.51 [facility] Work Phone: Basophil percentageon 2021 Basophils/100 WBC (Bld) 0.3 % 0-1 [facility] Work Phone: Bilirubin [Mass/Vol] 1.40 mg/dL 0.20-1.00 [facility] Work Phone: Comment on above: For patients on eltr ombopag therapy, use of Dimension [place] TBIL is not recommended. Chloride [Moles/Vol] 107 mmol/L 98-107 [facility] Work Phone: Eosinophils/100 WBC (Bld) 0.2 % 0-5 [facility] Work Phone: Glucose [Mass/Vol] 131 mg/dL 74-106 [facility] Work Phone: Comment on above: Fasting Glucose resu lt greater than or equal to 126 mg/dL suggests DIABETES MELLITUS per A.D.A. criteria. Neutrophils (Bld) [#/Vol] 10.2 10*3/uL 2.0-7.7 [facility] Work Phone: Neutrophils/100 WBC (Bld) 87.8 % 47-70 [facility] Work Phone: Potassium [Moles/Vol] 4.3 mmol/L 3.5-5.1 [facility] Work Phone: Protein [Mass/Vol] 6.4 g/dL 6.4-8.2 [facility] Work Phone: Sodium [Moles/Vol] 140 mmol/L 136-145 [facility] Work Phone: WBC (Bld) [#/Vol] 11.6 10*3/uL 4.4-11.0 [facility] Work Phone: Blood erythrocytes count (nu mber/volume)on 09-18-2021 RBC (Bld) [#/Vol] 4.90 10*6/uL 4.6-6.2 [facility] Work Phone: Blood hemoglobin measurement (mass/volume)on 09-18-2021 Hemoglobin (Bld) [Mass/Vol] 15.0 g/dL 13.0-16.5 [facility] Work Phone: Blood lymphocytes/100 leukoc yteson 09-18-2021 Lymphocytes/100 WBC (Bld) 5.3 % 19-41 [facility] Work Phone: Blood monocytes/100 leukocyt eson 09-18-2021 Monocytes/100 WBC (Bld) 4.8 % 0-10 [facility] Work Phone: Blood platelet mean volumeon 09-18-2021 Platelet mean volume (Bld) [Entitic vol] 9.8 fL 6.2-12.0 [facility] Work Phone: Culture, urineon 09-18-2021 Bacteria identified Cx Nom (U) Pseudomonas aeroginosa [facility] Work Phone: Determination of erythrocyte mean corpuscular volume (MCV)on 09-18-2021 MCV (RBC) [Entitic vol] 91.8 fL 80-94 [facility] Work Phone: Hematocrit Auto (Bld) [Volum e fraction]on 09-18-2021 Hematocrit (Bld) [Volume fraction] 45.0 % 40-54 [facility] Work Phone: Laboratory - Chemistry and C hemistry - challengeon 09-18-2021 ALP [Catalytic activity/Vol] 70 U/L 45-117 [facility] Work Phone: ALT [Catalytic activity/Vol] 28 U/L 16-61 [facility] Work Phone: CO2 [Moles/Vol] 24.0 mmol/L 21.0-32.0 [facility] Work Phone: Globulin (S) [Mass/Vol] 3.4 g/dL 2.2-4.2 [facility] Work Phone: Urea nitrogen/Creatinine [Mass ratio] 26.1 mg/mg 10-20 [facility] Work Phone: Laboratory - Hematology and Cell countson 09-18-2021 Erythrocyte distribution width (RBC) [Entitic vol] 48.2 fL 35.1-43.9 [facility] Work Phone: Erythrocyte distribution width (RBC) [Ratio] 14.3 % 11.6-14.6 [facility] Work Phone: Immature granulocytes/100 WBC (Bld) 1.600 % 0.0-0.9 [facility] Work Phone: Comment on above: IG% - Immature Granu locytes (promyelocytes, myelocytes and metamyelocytes) > 1% indicates that a LEFT SHIFT is Present. MCH (RBC) [Entitic mass] 30.6 pg 27.0-32.0 [facility] Work Phone: Nucleated RBC/100 WBC (Bld) [Ratio] 0 % 0-5 [facility] Work Phone: MCHC Auto (RBC) [Mass/Vol]on 09-18-2021 MCHC (RBC) [Mass/Vol] 33.3 g/dL 32-36 [facility] Work Phone: No Panel Informationon 09-18 Estimated GFR (MDRD) Amer 54 mL/min >60 [facility] Work Phone: Comment on above: GFR Calc Estimated GFR (MDRD) Non-Af Amer 44 mL/min >60 [facility] Work Phone: Comment on above: Non- GFR Calc Thyroid Stimulating Hormone (TSH) 0.41 uIU/mL 0.358-3.74 [facility] Work Phone: Vitamin D 25-Hydroxy 38.1 ng/mL [facility] Work Phone: Comment on above: Vitamin D 25(OH) Sta tus Range Deficiency <20 ng/mL (50nmol/L) Insufficiency 20 - 30 ng/mL (50 - 75 nmol/L) Sufficiency 30 - 100 ng/mL (75 - 250 nmol/L) Toxicity >100 ng/mL (>250 nmol/L) Platelets bldon 09-18-2021 Platelets (Bld) [#/Vol] 236 10*3/uL 150-450 [facility] Work Phone: Serum or plasma albumin ambar urement (mass/volume)on 09-18-2021 Albumin [Mass/Vol] 3.0 g/dL 3.2-5.0 [facility] Work Phone: Serum or plasma albumin/glob ulin mass ratioon 09-18-2021 Albumin/Globulin [Mass ratio] 0.9 {ratio} 0.9-2.4 [facility] Work Phone: Serum or plasma calcium ambar urement (mass/volume)on 09-18-2021 Calcium [Mass/Vol] 8.4 mg/dL 8.5-10.1 [facility] Work Phone: Serum or plasma creatinine m easurement (mass/volume)on 09-18-2021 Creatinine [Mass/Vol] 1.61 mg/dL 0.70-1.30 [facility] Work Phone: Comment on above: The validity of the calculated GFR & GFRAA in patients over 70 years has not been determined. Clinical correlation is essential. Serum or plasma urea nitroge n measurement (mass/volume)on 09-18-2021 Urea nitrogen [Mass/Vol] 42 mg/dL 7-18 [facility] Work Phone: Thin prep Papanicolaou smear with manual screeningon 09-18-2021 Thin prep Papanicolaou smear with manual screening 11 U/L 15-37 [facility] Work Phone: Thin prep Papanicolaou smear with manual screening 9 5-15 [facility] Work Phone: Culture, urineon 08-26-2021 Bacteria identified Cx Nom (U) Pseudomonas aeroginosa [facility] Work Phone: Absolute lymphocyte counton 08-07-2021 Lymphocytes Auto (Unsp spec) [#/Vol] 1.39 10*3/uL 0.83-4.51 [facility] Work Phone: Basophil percentageon 2021 Basophils/100 WBC (Bld) 0.5 % 0-1 [facility] Work Phone: Chloride [Moles/Vol] 111 mmol/L 98-107 [facility] Work Phone: Eosinophils/100 WBC (Bld) 3.8 % 0-5 [facility] Work Phone: Glucose [Mass/Vol] 82 mg/dL 74-106 [facility] Work Phone: Neutrophils (Bld) [#/Vol] 4.1 10*3/uL 2.0-7.7 [facility] Work Phone: Neutrophils/100 WBC (Bld) 63.2 % 47-70 [facility] Work Phone: Potassium [Moles/Vol] 4.9 mmol/L 3.5-5.1 [facility] Work Phone: Sodium [Moles/Vol] 143 mmol/L 136-145 [facility] Work Phone: WBC (Bld) [#/Vol] 6.5 10*3/uL 4.4-11.0 [facility] Work Phone: Blood erythrocytes count (nu mber/volume)on 08-07-2021 RBC (Bld) [#/Vol] 4.65 10*6/uL 4.6-6.2 [facility]: Blood hemoglobin measurement (mass/volume)on 08-07-2021 Hemoglobin (Bld) [Mass/Vol] 14.3 g/dL 13.0-16.5 [facility] Work Phone: Blood lymphocytes/100 leukoc yteson 08-07-2021 Lymphocytes/100 WBC (Bld) 21.3 % 19-41 [facility] Work Phone: Blood monocytes/100 leukocyt eson 08-07-2021 Monocytes/100 WBC (Bld) 10.6 % 0-10 [facility] Work Phone: Blood platelet mean volumeon 08-07-2021 Platelet mean volume (Bld) [Entitic vol] 10.0 fL 6.2-12.0 [facility] Work Phone: Determination of erythrocyte mean corpuscular volume (MCV)on 08-07-2021 MCV (RBC) [Entitic vol] 92.3 fL 80-94 [facility] Work Phone: Erythrocyte sedimentation ra sb 08-07-2021 ESR (Bld) [Velocity] 21 mm/h 0-20 [facility] Work Phone: Hematocrit Auto (Bld) [Volum e fraction]on 08-07-2021 Hematocrit (Bld) [Volume fraction] 42.9 % 40-54 [facility] Work Phone: Laboratory - Chemistry and C hemistry - challengeon 08-07-2021 CO2 [Moles/Vol] 29.0 mmol/L 21.0-32.0 [facility] Work Phone: Urea nitrogen/Creatinine [Mass ratio] 20.0 mg/mg 10-20 [facility] Work Phone: Laboratory - Hematology and Cell countson 08-07-2021 Erythrocyte distribution width (RBC) [Entitic vol] 44.2 fL 35.1-43.9 [facility] Work Phone: Erythrocyte distribution width (RBC) [Ratio] 13.2 % 11.6-14.6 [facility] Work Phone: Immature granulocytes/100 WBC (Bld) 0.600 % 0.0-0.9 [facility] Work Phone: Comment on above: IG% - Immature Granu locytes (promyelocytes, myelocytes and metamyelocytes) > 1% indicates that a LEFT SHIFT is Present. MCH (RBC) [Entitic mass] 30.8 pg 27.0-32.0 [facility] Work Phone: Nucleated RBC/100 WBC (Bld) [Ratio] 0 % 0-5 [facility] Work Phone: MCHC Auto (RBC) [Mass/Vol]on 08-07-2021 MCHC (RBC) [Mass/Vol] 33.3 g/dL 32-36 [facility] Work Phone: No Panel Informationon 08-07 Estimated GFR (MDRD) Amer 56 mL/min >60 [facility] Work Phone: Comment on above: GFR Calc Estimated GFR (MDRD) Non-Af Amer 46 mL/min >60 [facility] Work Phone: Comment on above: Non- GFR Calc Platelets bldon 08-07-2021 Platelets (Bld) [#/Vol] 288 10*3/uL 150-450 [facility] Work Phone: Serum or plasma C reactive p rotein measurement (mass/volume)on 08-07-2021 CRP [Mass/Vol] mg/L 0.0-3.0 [facility] Work Phone: Comment on above: C-Reactive Protein ( CRP) provides useful information for thediagnosis, therapy and monitoring of inflammatory processesand associated diseases. For the evaluation of Relative Riskfor Cardiovascular Disease, a High Sensitivity CRP (HSCRP)should be ordered. Serum or plasma calcium ambar urement (mass/volume)on 08-07-2021 Calcium [Mass/Vol] 9.6 mg/dL 8.5-10.1 [facility] Work Phone: Serum or plasma creatinine m easurement (mass/volume)on 08-07-2021 Creatinine [Mass/Vol] 1.55 mg/dL 0.70-1.30 [facility] Work Phone: Comment on above: The validity of the calculated GFR & GFRAA in patients over 70 years has not been determined. Clinical correlation is essential. Serum or plasma urea nitroge n measurement (mass/volume)on 08-07-2021 Urea nitrogen [Mass/Vol] 31 mg/dL 7-18 [facility] Work Phone: Thin prep Papanicolaou smear with manual screeningon 08-07-2021 Thin prep Papanicolaou smear with manual screening 3 5-15 [facility] Work Phone: Absolute lymphocyte counton 06-20-2021 Lymphocytes Auto (Unsp spec) [#/Vol] 1.18 10*3/uL 0.83-4.51 [facility] Work Phone: Basophil percentageon 2021 Basophils/100 WBC (Bld) 0.6 % 0-1 [facility] Work Phone: Bilirubin [Mass/Vol] 0.80 mg/dL 0.20-1.00 [facility] Work Phone: Comment on above: For patients on eltr ombopag therapy, use of Dimension [place] TBIL is not recommended. Chloride [Moles/Vol] 108 mmol/L 98-107 [facility] Work Phone: Eosinophils/100 WBC (Bld) 3.2 % 0-5 [facility] Work Phone: Glucose [Mass/Vol] 108 mg/dL 74-106 [facility] Work Phone: Comment on above: Fasting Glucose resu lt from 100 to 125 mg/dL suggests IMPAIRED HOMEOSTASIS per A.D.A. criteria. Neutrophils (Bld) [#/Vol] 4.2 10*3/uL 2.0-7.7 [facility] Work Phone: Neutrophils/100 WBC (Bld) 67.7 % 47-70 [facility] Work Phone: Potassium [Moles/Vol] 4.5 mmol/L 3.5-5.1 [facility] Work Phone: Protein [Mass/Vol] 6.5 g/dL 6.4-8.2 [facility] Work Phone: Sodium [Moles/Vol] 141 mmol/L 136-145 [facility] Work Phone: WBC (Bld) [#/Vol] 6.2 10*3/uL 4.4-11.0 [facility] Work Phone: Blood erythrocytes count (nu mber/volume)on 06-20-2021 RBC (Bld) [#/Vol] 4.36 10*6/uL 4.6-6.2 [facility] Work Phone: Blood hemoglobin measurement (mass/volume)on 06-20-2021 Hemoglobin (Bld) [Mass/Vol] 13.2 g/dL 13.0-16.5 [facility] Work Phone: Blood lymphocytes/100 leukoc yteson 06-20-2021 Lymphocytes/100 WBC (Bld) 19.1 % 19-41 [facility] Work Phone: Blood monocytes/100 leukocyt eson 06-20-2021 Monocytes/100 WBC (Bld) 9.1 % 0-10 [facility] Work Phone: Blood platelet mean volumeon 06-20-2021 Platelet mean volume (Bld) [Entitic vol] 10.2 fL 6.2-12.0 [facility] Work Phone: Determination of erythrocyte mean corpuscular volume (MCV)on 06-20-2021 MCV (RBC) [Entitic vol] 92.0 fL 80-94 [facility] Work Phone: Hematocrit Auto (Bld) [Volum e fraction]on 06-20-2021 Hematocrit (Bld) [Volume fraction] 40.1 % 40-54 [facility] Work Phone: Laboratory - Chemistry and C hemistry - challengeon 06-20-2021 ALP [Catalytic activity/Vol] 57 U/L 45-117 [facility] Work Phone: ALT [Catalytic activity/Vol] 32 U/L 16-61 [facility] Work Phone: CO2 [Moles/Vol] 28.0 mmol/L 21.0-32.0 [facility] Work Phone: Globulin (S) [Mass/Vol] 3.2 g/dL 2.2-4.2 [facility] Work Phone: Urea nitrogen/Creatinine [Mass ratio] 16.4 mg/mg 10-20 [facility] Work Phone: Laboratory - Hematology and Cell countson 06-20-2021 Erythrocyte distribution width (RBC) [Entitic vol] 44.2 fL 35.1-43.9 [facility] Work Phone: Erythrocyte distribution width (RBC) [Ratio] 13.2 % 11.6-14.6 [facility] Work Phone: Immature granulocytes/100 WBC (Bld) 0.300 % 0.0-0.9 [facility] Work Phone: Comment on above: IG% - Immature Granu locytes (promyelocytes, myelocytes and metamyelocytes) > 1% indicates that a LEFT SHIFT is Present. MCH (RBC) [Entitic mass] 30.3 pg 27.0-32.0 [facility] Work Phone: Nucleated RBC/100 WBC (Bld) [Ratio] 0 % 0-5 [facility] Work Phone: MCHC Auto (RBC) [Mass/Vol]on 06-20-2021 MCHC (RBC) [Mass/Vol] 32.9 g/dL 32-36 [facility] Work Phone: No Panel Informationon 06-20 Estimated GFR (MDRD) Amer 66 mL/min >60 [facility] Work Phone: Comment on above: GFR Calc Estimated GFR (MDRD) Non-Af Amer 55 mL/min >60 [facility] Work Phone: Comment on above: Non- GFR Calc Thyroid Stimulating Hormone (TSH) 0.42 uIU/mL 0.358-3.74 [facility] Work Phone: Vitamin D 25-Hydroxy 39.6 ng/mL [facility] Work Phone: Comment on above: Vitamin D 25(OH) Sta tus Range Deficiency <20 ng/mL (50nmol/L) Insufficiency 20 - 30 ng/mL (50 - 75 nmol/L) Sufficiency 30 - 100 ng/mL (75 - 250 nmol/L) Toxicity >100 ng/mL (>250 nmol/L) Platelets bldon 06-20-2021 Platelets (Bld) [#/Vol] 293 10*3/uL 150-450 [facility] Work Phone: Serum or plasma albumin ambar urement (mass/volume)on 06-20-2021 Albumin [Mass/Vol] 3.3 g/dL 3.2-5.0 [facility] Work Phone: Serum or plasma albumin/glob ulin mass ratioon 06-20-2021 Albumin/Globulin [Mass ratio] 1.0 {ratio} 0.9-2.4 [facility] Work Phone: Serum or plasma calcium ambar urement (mass/volume)on 06-20-2021 Calcium [Mass/Vol] 8.7 mg/dL 8.5-10.1 [facility] Work Phone: Serum or plasma creatinine m easurement (mass/volume)on 06-20-2021 Creatinine [Mass/Vol] 1.34 mg/dL 0.70-1.30 [facility] Work Phone: Comment on above: The validity of the calculated GFR & GFRAA in patients over 70 years has not been determined. Clinical correlation is essential. Serum or plasma urea nitroge n measurement (mass/volume)on 06-20-2021 Urea nitrogen [Mass/Vol] 22 mg/dL 7-18 [facility] Work Phone: Thin prep Papanicolaou smear with manual screeningon 06-20-2021 Thin prep Papanicolaou smear with manual screening 18 U/L 15-37 [facility] Work Phone: Thin prep Papanicolaou smear with manual screening 5 5-15 [facility] Work Phone: Blood hemoglobin measurement (mass/volume)on 05-02-2021 Hemoglobin (Bld) [Mass/Vol] 9.2 g/dL 13.0-16.5 [facility] Work Phone: Hematocrit Auto (Bld) [Volum e fraction]on 05-02-2021 Hematocrit (Bld) [Volume fraction] 28.2 % 40-54 [facility] Work Phone: CNOVon 04-04-2021 CNOV Office Visit ([facility]NEY CL[facility]) KULWANT ANDRADE ([id number]) 1940 M Date Time Provider Department 04/04/21 [...] circumflex. He has no previous history of MT. ?There was a vague history of cardiomyopathy in the past. Pt has undergone some sort of ablation at [facility] in the remote past, but does not [...] Cardiovascular: Negati (more content not included)... Normal [facility] XR CHEST 2V FRONTAL/LATon XR CHEST 2V [...] of bilateral pleural effusions and bibasilar infiltrate/atelectasis. Bag Machine Set Up Operator: [email or web address] Transcribe Date/Time: Apr 04 2021 2:56P Dictated by : GALILEA BOLES MD This examination was interpreted and the report reviewed and electronically signed by: GALILEA BOLES MD on Apr 04 2021 2:58PM EST [id number] Normal [facility] CNOVon 03-15-2021 CNOV Office Visit (SIDNEY CC) KULWANT ANDRADE ([id number]) 1940 M Date Time Provider Department 03/15/21 10:00 AM YANCY SHIPMAN During your visit today, we recorded the following information about you: Pulse Respiration Blood pressure Weight 66/minute 16/minute 104/62 73.5 kg Height 1.803 m Yancy Shipman APRN.CNP 03/15/2021 10:47 AM Signed HPI: This is a 80 year old man, who was transferred from [facility] s/[facility] for evaluation of 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 He has no previous history of MT. ?There was a vague history of cardiomyopathy in the past. Pt has undergone some sort of ablation at [facility] in the remote past, but does not [...] Procedure Laterality (more content not included)... Normal [facility] Basic metabolic 2000 panelon 03-05-2021 Anion gap [Moles/Vol] 12 mmol/L Normal 9-18 [facility] Comment on above: Order Comment: Speci men Type: BLOOD SPECIMEN Performed By: #### 2 4321-2, ####[facility]ORATORYCLIA [id number] [place] [address] [place] Calcium [Mass/Vol] 8.2 mg/dL Low 8.5-10.2 [facility] Comment on above: Order Comment: Speci men Type: BLOOD SPECIMEN Performed By: #### 2 4320-2, ####[facility]ATORYCLIA [id number] [address] [place] Chloride [Moles/Vol] 104 mmol/L Normal 97-105 [facility] Comment on above: Order Comment: Speci men Type: BLOOD SPECIMEN Performed By: #### 2 4320-2, ####[facility]ATORYCLIA [id number] [place] [address] [place] CO2 [Moles/Vol] 24 mmol/L Normal 22-30 [facility] Comment on above: Order Comment: Speci men Type: BLOOD SPECIMEN Performed By: #### 2 4320-2, ####[facility]ORYCLIA [id number] [place] [address] [place] Creatinine [Mass/Vol] 1.04 mg/dL Normal 0.73-1.22 [facility] Comment on above: Order Comment: Speci men Type: BLOOD SPECIMEN Performed By: #### 2 4320-2, ####[facility]ORYCLIA [id number] [place] [address] [place] GFR/1.73 sq M.predicted MDRD (S/P/Bld) [Vol rate/Area] mL/min/{1.73_m2} Normal [facility] Comment on above: Order Comment: Speci men [...] actual GFR. Performed By: #### 2 432-, 16485-3 ####[facility]ORYCLIA [id number] [place] [address] [place] Glucose [Mass/Vol] 89 mg/dL Normal 74-99 [facility] Comment on above: Order Comment: Speci men Type: BLOOD SPECIMEN Result Comment: The [place] Diabetes Association (ADA) provides guidance for cutoff [...] Standards of Medical Care in Diabetes 2016, [place] [employer]. Diabetes Care. 2016.39(Suppl 1). Performed By: #### 2 432-, 94474-2 ####[facility]ORYCLIA [id number] [place] [address] [place] Potassium [Moles/Vol] 3.9 mmol/L Normal 3.7-5.1 [facility] Comment on above: Order Comment: Speci men Type: BLOOD SPECIMEN Performed By: #### 2 4321-2, ####[facility]ORYCLIA [id number] [address] Sodium [Moles/Vol] 140 mmol/L Normal 136-144 [facility] Comment on above: Order Comment: Speci men Type: BLOOD SPECIMEN Performed By: #### 2 4321-2, ####[facility]ORYCLIA [id number] [address] Urea nitrogen [Mass/Vol] 16 mg/dL Normal 9-24 [facility] Comment on above: Order Comment: Speci men Type: BLOOD SPECIMEN Performed By: #### 2 432-2, ####[facility]ATORYCLIA [id number] [address] CBC panel Auto (Bld)on 03-05 Erythrocyte distribution width (RBC) [Ratio] 13.7 % Normal 11.5-15.0 [facility] Comment on above: Order Comment: Speci men Type: BLOOD SPECIMEN Performed By: #### 5 8410-2 ####[facility]ORYCLIA [id number] [address] Hematocrit (Bld) [Volume fraction] 24.5 % Low 39.0-51.0 [facility] Comment on above: Order Comment: Speci men Type: BLOOD SPECIMEN Performed By: #### 5 8410-2 ####[facility]ORYCLIA [id number] [address] Hemoglobin (Bld) [Mass/Vol] 7.8 g/dL Low 13.0-17.0 [facility] Comment on above: Order Comment: Speci men Type: BLOOD SPECIMEN Performed By: #### 5 8410-2 ####[facility]ORYCLIA [id number] [address] MCH (RBC) [Entitic mass] 31.0 pg Normal 26.0-34.0 [facility] Comment on above: Order Comment: Speci men Type: BLOOD SPECIMEN Performed By: #### 5 8410-2 ####[facility]ORYCLIA [id number] [address] MCHC (RBC) [Mass/Vol] 31.8 g/dL Normal 30.5-36.0 [facility] Comment on above: Order Comment: Speci men Type: BLOOD SPECIMEN Performed By: #### 5 8410-2 ####[facility]ORYCLIA [id number] [address] MCV (RBC) [Entitic vol] 97.2 fL Normal 80.0-100.0 [facility] Comment on above: Order Comment: Speci men Type: BLOOD SPECIMEN Performed By: #### 5 8410-2 ####[facility]ORYCLIA [id number] [address] Nucleated RBC (Bld) [#/Vol] 0.04 10*3/uL High <0.01 [facility] Comment on above: Order Comment: Speci men Type: BLOOD SPECIMEN Performed By: #### 5 8410-2 ####[facility]ORYCLIA [id number] [address] Platelet mean volume (Bld) [Entitic vol] 9.5 fL Normal 9.0-12.7 [facility] Comment on above: Order Comment: Speci men Type: BLOOD SPECIMEN Performed By: #### 5 8410-2 ####[facility]ORYCLIA [id number] [address] Platelets (Bld) [#/Vol] 326 10*3/uL Normal 150-400 [facility] Comment on above: Order Comment: Speci men Type: BLOOD SPECIMEN Performed By: #### 5 8410-2 ####[facility]ORYCLIA [id number] [address] RBC (Bld) [#/Vol] 2.52 10*6/uL Low 4.20-6.00 [facility] Comment on above: Order Comment: Speci men Type: BLOOD SPECIMEN Performed By: #### 5 8410-2 ####[facility]ORYCLIA [id number] [address] OF [facility] WBC (Bld) [#/Vol] 7.02 10*3/uL Normal 3.70-11.00 [facility] Comment on above: Order Comment: Speci men Type: BLOOD SPECIMEN Performed By: #### 5 8410-2 ####[facility]ATORYCLIA [id number] [place] [id number] [facility] CNDSon 03-05-2021 CNDS HNO ID: [id number] Author: Yancy Shipman APRN.RUBBER CHEMIST Service: Cardiovascular Surgery Author Type: Nurse Practitioner Type: Discharge Summary Filed: 03/05/2021 2:10 PM Note Text: Attestation signed by Todd Grewal MD at 03/12/2021 8:58 PM Attending Note I have personally performed a face to face assessment of the patient and have reviewed the PA/TEXTILE SCRAP SALVAGER note. 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 He has no previous history of MT. ?There was a vague history of cardiomyopathy in the past. Pt has undergone some sort of ablation at [facility] in the remote past, but does not [...] svt-pda; left (more content not included)... Normal [facility] Magnesium SerPl-mCncon 03-05 Magnesium [Mass/Vol] 2.1 mg/dL Normal 1.7-2.3 [facility] Comment on above: Order Comment: Speci men Type: BLOOD SPECIMEN Performed By: #### 2 4321-2, 77135-8 ####[facility]ATORYCLIA [id number] [address] [place] THERAPY NTon 03-05-2021 THERAPY NT HNO ID: [id number] Author: Annalise Pace PT Service: Physical Therapy Author Type: Physical Therapist Type: Therapy (PT/OT/Speech/Resp) Filed: 03/05/2021 11:50 AM Note Text: Physical Therapy Treatment SERVICE DATE: 03/05/2021 SERVICE TIME: 1100 to 1125 ROOM: [place] [address] Recommended Discharge Disposition: Acute Rehab Recommended Discharge [...] Environment Patient Lives With: Self/Alone Assistance Available: 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 Normal [facility] Basic metabolic 2000 panelon 03-04-2021 Anion gap [Moles/Vol] 12 mmol/L Normal 9-18 [facility] Comment on above: Order Comment: Speci men Type: BLOOD SPECIMEN Performed By: #### 2 4321-2 ####[facility]ATORYCLIA [id number] [place] [address] [place] Calcium [Mass/Vol] 7.8 mg/dL Low 8.5-10.2 [facility] Comment on above: Order Comment: Speci men Type: BLOOD SPECIMEN Performed By: #### 2 4321-2 ####[facility]ATORYCLIA [id number] [address] [place] Chloride [Moles/Vol] 106 mmol/L High 97-105 [facility] Comment on above: Order Comment: Speci men Type: BLOOD SPECIMEN Performed By: #### 2 4321-2 ####[facility]ORYCLIA [id number] [address] [place] CO2 [Moles/Vol] 23 mmol/L Normal 22-30 [facility] Comment on above: Order Comment: Speci men Type: BLOOD SPECIMEN Performed By: #### 2 4321-2 ####[facility]ORYCLIA [id number] [address] [place] Creatinine [Mass/Vol] 0.94 mg/dL Normal 0.73-1.22 [facility] Comment on above: Order Comment: Speci men Type: BLOOD SPECIMEN Performed By: #### 2 4321-2 ####[facility]ORYCLIA [id number] [address] [place] GFR/1.73 sq M.predicted MDRD (S/P/Bld) [Vol rate/Area] mL/min/{1.73_m2} Normal [facility] Comment on above: Order Comment: Speci men [...] actual GFR. Performed By: #### 2 4321-2 ####[facility]ATORYCLIA [id number] [address] Glucose [Mass/Vol] 86 mg/dL Normal 74-99 [facility] Comment on above: Order Comment: Speci men Type: BLOOD SPECIMEN Result Comment: The [place] Diabetes Association (ADA) provides guidance for cutoff [...] Standards of Medical Care in Diabetes 2016, [place] [employer]. Diabetes Care. 2016.39(Suppl 1). Performed By: #### 2 4321-2 ####[facility]ATORYCLIA [id number] [address] STATES OF [facility] Potassium [Moles/Vol] 3.3 mmol/L Low 3.7-5.1 [facility] Comment on above: Order Comment: Speci men Type: BLOOD SPECIMEN Performed By: #### 2 4321-2 ####[facility]ORYCLIA [id number] [address] Sodium [Moles/Vol] 141 mmol/L Normal 136-144 [facility] Comment on above: Order Comment: Speci men Type: BLOOD SPECIMEN Performed By: #### 2 4321-2 ####[facility]ORYCLIA [id number] [address] Urea nitrogen [Mass/Vol] 16 mg/dL Normal 9-24 [facility] Comment on above: Order Comment: Speci men Type: BLOOD SPECIMEN Performed By: #### 2 4321-2 ####[facility]ATORYCLIA [id number] [address] CASE MANAGEMon 03-04-2021 CASE MANAGEM HNO ID: [id number] Author: Pooja Johnson RN Service: Nursing Author Type: Registered Nurse Type: Care Mgt Progress Note Filed: 03/04/2021 3:23 PM Note Text: CARE MANAGEMENT PROGRESS NOTE SERVICE DATE: 03/04/2021 SERVICE TIME: 3:22 PM LOS: 9 days Auth to [facility] obtained. Auth is good through 03/06. Can d/c when medically ready SIGNATURE: Pooja Johnson RN PATIENT NAME: Kulwant Andrade DATE: March 04, 2021 TIME: 3:22 PM PAGER/CONTACT #: [phone] Normal [facility] CASE MANAGEM HNO ID: [id number] Author: Pooja Johnson RN Service: Nursing Author Type: Registered Nurse Type: Care Mgt Progress Note Filed: 03/04/2021 8:37 AM Note Text: CARE MANAGEMENT PROGRESS NOTE SERVICE DATE: 03/04/2021 SERVICE TIME: 8:34 AM LOS: 9 days Updated clinicals sent to [facility]. Will need auth. Asked for auth to be initiated today. SIGNATURE: Pooja Johnson RN PATIENT NAME: Kulwant Andrade DATE: March 04, 2021 TIME: 8:34 AM PAGER/CONTACT #: [phone] - Normal [facility] CBC panel Auto (Bld)on 03-04 Erythrocyte distribution width (RBC) [Ratio] 13.5 % Normal 11.5-15.0 [facility] Comment on above: Order Comment: Speci men Type: BLOOD SPECIMEN Performed By: #### 5 8410-2 ####[facility]ORYCLIA [id number] [address] STATES OF [facility] Hematocrit (Bld) [Volume fraction] 23.4 % Low 39.0-51.0 [facility] Comment on above: Order Comment: Speci men Type: BLOOD SPECIMEN Performed By: #### 5 8410-2 ####[facility]ORYCLIA [id number] [address] [place] Hemoglobin (Bld) [Mass/Vol] 7.7 g/dL Low 13.0-17.0 [facility] Comment on above: Order Comment: Speci men Type: BLOOD SPECIMEN Performed By: #### 5 8410-2 ####[facility]ORYCLIA [id number] [address] MCH (RBC) [Entitic mass] 31.8 pg Normal 26.0-34.0 [facility] Comment on above: Order Comment: Speci men Type: BLOOD SPECIMEN Performed By: #### 5 8410-2 ####[facility]ORYCLIA [id number] [address] MCHC (RBC) [Mass/Vol] 32.9 g/dL Normal 30.5-36.0 [facility] Comment on above: Order Comment: Speci men Type: BLOOD SPECIMEN Performed By: #### 5 8410-2 ####[facility]ORYCLIA [id number] [address] MCV (RBC) [Entitic vol] 96.7 fL Normal 80.0-100.0 [facility] Comment on above: Order Comment: Speci men Type: BLOOD SPECIMEN Performed By: #### 5 8410-2 ####[facility]ORYCLIA [id number] [address] Nucleated RBC (Bld) [#/Vol] 0.05 10*3/uL High <0.01 [facility] Comment on above: Order Comment: Speci men Type: BLOOD SPECIMEN Performed By: #### 5 8410-2 ####[facility]ORYCLIA [id number] [address] Platelet mean volume (Bld) [Entitic vol] 10.0 fL Normal 9.0-12.7 [facility] Comment on above: Order Comment: Speci men Type: BLOOD SPECIMEN Performed By: #### 5 8410-2 ####[facility]ATORYCLIA [id number] [place] [address] [place] Platelets (Bld) [#/Vol] 268 10*3/uL Normal 150-400 [facility] Comment on above: Order Comment: Speci men Type: BLOOD SPECIMEN Performed By: #### 5 8410-2 ####[facility]ORYCLIA [id number] [address] [place] RBC (Bld) [#/Vol] 2.42 10*6/uL Low 4.20-6.00 [facility] Comment on above: Order Comment: Speci men Type: BLOOD SPECIMEN Performed By: #### 5 8410-2 ####[facility]ATORYCLIA [id number] [address] WBC (Bld) [#/Vol] 6.07 10*3/uL Normal 3.70-11.00 [facility] Comment on above: Order Comment: Speci men Type: BLOOD SPECIMEN Performed By: #### 5 8410-2 ####[facility]ORYCLIA [id number] [address] Magnesium SerPl-mCncon 03-04 Magnesium [Mass/Vol] 1.9 mg/dL Normal 1.7-2.3 [facility] Comment on above: Order Comment: Speci men Type: BLOOD SPECIMEN Performed By: #### 1 9123-9 ####[facility]ATORYCLIA [id number] [address] NUTRITIONon 03-04-2021 NUTRITION HNO ID: [id number] Author: Kiera Valdez RD Service: Nutrition Therapy Author Type: Registered Dietitian Type: Nutrition Filed: 03/04/2021 1:31 PM Note Text: NUTRITION THERAPY PROGRESS NOTE SERVICE DATE: 03/04/2021 SERVICE TIME: 11:05 Nutrition Assessment: Recommended Malnutrition Diagnosis: No Malnutrition Identified (02/25/21 1220 : Kiera Valdez RD) Estimated kilocalorie needs: 5379-1666 Calorie Calculation Method: 25-30 kcals/kg Estimated protein [...] March 04, 2021 TIME: 11:05 AM PAGER: 1897 [facility] ALLIED HEALTHon 03-03-2021 ALLIED HEALTH HNO ID: [id number] Author: RT Aminta(R) Service: Radiology Author Type: [...] Aminta(R) March 03, 2021 8:08 AM Normal [facility] Basic metabolic 2000 panelon 03-03-2021 Anion gap [Moles/Vol] 13 mmol/L Normal 9-18 [facility] Comment on above: Order Comment: Speci men Type: BLOOD SPECIMEN Performed By: #### 2 4321-2 ####[facility]ORYCLIA [id number] [address] STATES OF [facility] Calcium [Mass/Vol] 7.9 mg/dL Low 8.5-10.2 [facility] Comment on above: Order Comment: Speci men Type: BLOOD SPECIMEN Performed By: #### 2 4321-2 ####[facility]ATORYCLIA [id number] [place] [address] [place] Chloride [Moles/Vol] 106 mmol/L High 97-105 [facility] Comment on above: Order Comment: Speci men Type: BLOOD SPECIMEN Performed By: #### 2 4321-2 ####[facility]ORYCLIA [id number] [place] [address] [place] CO2 [Moles/Vol] 22 mmol/L Normal 22-30 [facility] Comment on above: Order Comment: Speci men Type: BLOOD SPECIMEN Performed By: #### 2 4321-2 ####[facility]ORYCLIA [id number] [address] STATES OF [facility] Creatinine [Mass/Vol] 0.93 mg/dL Normal 0.73-1.22 [facility] Comment on above: Order Comment: Speci men Type: BLOOD SPECIMEN Performed By: #### 2 4321-2 ####[facility]ORYCLIA [id number] [address] [place] GFR/1.73 sq M.predicted MDRD (S/P/Bld) [Vol rate/Area] mL/min/{1.73_m2} Normal [facility] Comment on above: Order Comment: Speci men [...] actual GFR. Performed By: #### 2 4321-2 ####[facility]ORYCLIA [id number] [address] STATES OF [facility] Glucose [Mass/Vol] 89 mg/dL Normal 74-99 [facility] Comment on above: Order Comment: Speci [facility] Type: BLOOD SPECIMEN Result Comment: The [place] Diabetes Association (ADA) provides guidance for cutoff [...] Standards of Medical Care in Diabetes 2016, [place] [employer]. Diabetes Care. 2016.39(Suppl 1). Performed By: #### 2 4321-2 ####[facility]ATORYCLIA [id number] [address] Potassium [Moles/Vol] 3.5 mmol/L Low 3.7-5.1 [facility] Comment on above: Order Comment: Speci men Type: BLOOD SPECIMEN Performed By: #### 2 4321-2 ####[facility]ATORYCLIA [id number] [address] Sodium [Moles/Vol] 141 mmol/L Normal 136-144 [facility] Comment on above: Order Comment: Speci men Type: BLOOD SPECIMEN Performed By: #### 2 4321-2 ####[facility]ORYCLIA [id number] [address] Urea nitrogen [Mass/Vol] 20 mg/dL Normal 9-24 [facility] Comment on above: Order Comment: Speci men Type: BLOOD SPECIMEN Performed By: #### 2 4321-2 ####[facility]ORYCLIA [id number] [address] CBC panel Auto (Bld)on 03-03 Erythrocyte distribution width (RBC) [Ratio] 13.5 % Normal 11.5-15.0 [facility] Comment on above: Order Comment: Speci men Type: BLOOD SPECIMEN Performed By: #### 5 8410-2 ####[facility]ORYCLIA [id number] [address] Hematocrit (Bld) [Volume fraction] 22.3 % Low 39.0-51.0 [facility] Comment on above: Order Comment: Speci men Type: BLOOD SPECIMEN Performed By: #### 5 8410-2 ####[facility]ORYCLIA [id number] [address] Hemoglobin (Bld) [Mass/Vol] 7.2 g/dL Low 13.0-17.0 [facility] Comment on above: Order Comment: Speci men Type: BLOOD SPECIMEN Performed By: #### 5 8410-2 ####[facility]ORYCLIA [id number] [address] MCH (RBC) [Entitic mass] 31.3 pg Normal 26.0-34.0 [facility] Comment on above: Order Comment: Speci men Type: BLOOD SPECIMEN Performed By: #### 5 8410-2 ####[facility]ORYCLIA [id number] [address] MCHC (RBC) [Mass/Vol] 32.3 g/dL Normal 30.5-36.0 [facility] Comment on above: Order Comment: Speci men Type: BLOOD SPECIMEN Performed By: #### 5 8410-2 ####[facility]ORYCLIA [id number] [address] MCV (RBC) [Entitic vol] 97.0 fL Normal 80.0-100.0 [facility] Comment on above: Order Comment: Speci men Type: BLOOD SPECIMEN Performed By: #### 5 8410-2 ####[facility]ORYCLIA [id number] [address] Nucleated RBC (Bld) [#/Vol] 0.05 10*3/uL High <0.01 [facility] Comment on above: Order Comment: Speci men Type: BLOOD SPECIMEN Performed By: #### 5 8410-2 ####[facility]ORYCLIA [id number] [address] Platelet mean volume (Bld) [Entitic vol] 9.7 fL Normal 9.0-12.7 [facility] Comment on above: Order Comment: Speci men Type: BLOOD SPECIMEN Performed By: #### 5 8410-2 ####[facility]ORYCLIA [id number] [address] Platelets (Bld) [#/Vol] 221 10*3/uL Normal 150-400 [facility] Comment on above: Order Comment: Speci men Type: BLOOD SPECIMEN Performed By: #### 5 8410-2 ####[facility]ORYCLIA [id number] [address] RBC (Bld) [#/Vol] 2.30 10*6/uL Low 4.20-6.00 [facility] Comment on above: Order Comment: Speci men Type: BLOOD SPECIMEN Performed By: #### 5 8410-2 ####[facility]ATORYCLIA [id number] [place] [id number] [facility] WBC (Bld) [#/Vol] 6.46 10*3/uL Normal 3.70-11.00 [facility] Comment on above: Order Comment: Speci men Type: BLOOD SPECIMEN Performed By: #### 5 8410-2 ####[facility]ORYCLIA [id number] [address] THERAPY NTon 03-03-2021 THERAPY NT HNO ID: [id number] Author: Daphnie Blackburn OT/L Service: Occupational Therapy Author Type: Occupational Therapist Type: Therapy (PT/OT/Speech/Resp) Filed: 03/03/2021 10:39 AM Note Text: Occupational Therapy Treatment SERVICE DATE: 03/03/2021 SERVICE TIME: 1009 to 1028 ROOM: [place] [address] Recommended Discharge Disposition: Acute Rehab Recommended Discharge [...] Environment Patient Lives With: Self/Alone Assistance Available: 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 Normal [facility] XR CHEST 2V FRONTAL/LATon XR CHEST 2V [...] described above with persistent bilateral pleural effusions Bag Machine Set Up Operator: JABARI Transcribe Date/Time: Mar 03 2021 9:04A Dictated by : ZENY MORAN MD This examination was interpreted and the report reviewed and electronically signed by: ZENY MORAN MD on Mar 03 2021 9:06AM EST [id number] Normal [facility] ALLIED HEALTHon 03-02-2021 ALLIED HEALTH HNO ID: [id number] Author: RT Riya(R) Service: Radiology Author Type: [...] Riya(R) March 02, 2021 4:54 AM Normal [facility] Basic metabolic 2000 panelon 03-02-2021 Anion gap [Moles/Vol] 10 mmol/L Normal 9-18 [facility] Comment on above: Order Comment: Speci men Type: BLOOD SPECIMEN Performed By: #### 2 4321-2 ####[facility]ATORYCLIA [id number] [address] OF [facility] Calcium [Mass/Vol] 7.7 mg/dL Low 8.5-10.2 [facility] Comment on above: Order Comment: Speci men Type: BLOOD SPECIMEN Performed By: #### 2 4321-2 ####[facility]ORYCLIA [id number] [address] OF [facility] Chloride [Moles/Vol] 107 mmol/L High 97-105 [facility] Comment on above: Order Comment: Speci men Type: BLOOD SPECIMEN Performed By: #### 2 4321-2 ####[facility]ORYCLIA [id number] [address] [place] CO2 [Moles/Vol] 22 mmol/L Normal 22-30 [facility] Comment on above: Order Comment: Speci men Type: BLOOD SPECIMEN Performed By: #### 2 4321-2 ####[facility]ATORYCLIA [id number] [address] OF [facility] Creatinine [Mass/Vol] 0.96 mg/dL Normal 0.73-1.22 [facility] Comment on above: Order Comment: Speci men Type: BLOOD SPECIMEN Performed By: #### 2 4321-2 ####[facility]ORATORYCLIA [id number] [place] [address] [place] GFR/1.73 sq M.predicted MDRD (S/P/Bld) [Vol rate/Area] mL/min/{1.73_m2} Normal [facility] Comment on above: Order Comment: Speci men [...] actual GFR. Performed By: #### 2 4321-2 ####[facility] LABORATORYCLIA [id number] [place] [id number] [place] Glucose [Mass/Vol] 92 mg/dL Normal 74-99 [facility] Comment on above: Order Comment: Speci men Type: BLOOD SPECIMEN Result Comment: The [place] Diabetes Association (ADA) provides guidance for cutoff [...] Standards of Medical Care in Diabetes 2016, [place] [employer]. Diabetes Care. 2016.39(Suppl 1). Performed By: #### 2 4321-2 ####[facility]ORATORYCLIA [id number] [place] [address] [place] Potassium [Moles/Vol] 3.7 mmol/L Normal 3.7-5.1 [facility] Comment on above: Order Comment: Speci men Type: BLOOD SPECIMEN Performed By: #### 2 4321-2 ####[facility]ORATORYCLIA [id number] [address] Sodium [Moles/Vol] 139 mmol/L Normal 136-144 [facility] Comment on above: Order Comment: Speci men Type: BLOOD SPECIMEN Performed By: #### 2 4321-2 ####[facility]ORATORYCLIA [id number] [address] Urea nitrogen [Mass/Vol] 22 mg/dL Normal 9-24 [facility] Comment on above: Order Comment: Speci men Type: BLOOD SPECIMEN Performed By: #### 2 4321-2 ####[facility]ORATORYCLIA [id number] [address] CBC panel Auto (Bld)on 03-02 Erythrocyte distribution width (RBC) [Ratio] 13.1 % Normal 11.5-15.0 [facility] Comment on above: Order Comment: Speci men Type: BLOOD SPECIMEN Performed By: #### 5 8410-2 ####[facility]ORATORYCLIA [id number] [address] Hematocrit (Bld) [Volume fraction] 20.2 % Low 39.0-51.0 [facility] Comment on above: Order Comment: Speci men Type: BLOOD SPECIMEN Performed By: #### 5 8410-2 ####[facility]ORATORYCLIA [id number] [address] Hemoglobin (Bld) [Mass/Vol] 6.4 g/dL Low 13.0-17.0 [facility] Comment on above: Order Comment: Speci men Type: BLOOD SPECIMEN Performed By: #### 5 8410-2 ####[facility]ORATORYCLIA [id number] [address] MCH (RBC) [Entitic mass] 31.8 pg Normal 26.0-34.0 [facility] Comment on above: Order Comment: Speci men Type: BLOOD SPECIMEN Performed By: #### 5 8410-2 ####[facility]ATORYCLIA [id number] [address] MCHC (RBC) [Mass/Vol] 31.7 g/dL Normal 30.5-36.0 [facility] Comment on above: Order Comment: Speci men Type: BLOOD SPECIMEN Performed By: #### 5 8410-2 ####[facility]ATORYCLIA [id number] [address] MCV (RBC) [Entitic vol] 100.5 fL High 80.0-100.0 [facility] Comment on above: Order Comment: Speci men Type: BLOOD SPECIMEN Performed By: #### 5 8410-2 ####[facility]ATORYCLIA [id number] [address] Nucleated RBC (Bld) [#/Vol] 0.03 10*3/uL High <0.01 [facility] Comment on above: Order Comment: Speci men Type: BLOOD SPECIMEN Performed By: #### 5 8410-2 ####[facility]ATORYCLIA [id number] [address] Platelet mean volume (Bld) [Entitic vol] 10.0 fL Normal 9.0-12.7 [facility] Comment on above: Order Comment: Speci men Type: BLOOD SPECIMEN Performed By: #### 5 8410-2 ####[facility]ATORYCLIA [id number] [address] Platelets (Bld) [#/Vol] 195 10*3/uL Normal 150-400 [facility] Comment on above: Order Comment: Speci men Type: BLOOD SPECIMEN Performed By: #### 5 8410-2 ####[facility]ATORYCLIA [id number] [address] RBC (Bld) [#/Vol] 2.01 10*6/uL Low 4.20-6.00 [facility] Comment on above: Order Comment: Speci men Type: BLOOD SPECIMEN Performed By: #### 5 8410-2 ####[facility]ORYCLIA [id number] [address] WBC (Bld) [#/Vol] 6.48 10*3/uL Normal 3.70-11.00 [facility] Comment on above: Order Comment: Speci men Type: BLOOD SPECIMEN Performed By: #### 5 8410-2 ####[facility]ATORYCLIA [id number] [address] TYPE AND SCREENon 03-02-2021 ABO O Normal [facility] Comment on above: Order Comment: Speci men Type: BLOOD SPECIMEN Performed By: #### T SCR ####[facility] BANKCLIA [id number] [address] HISTORICAL AB SCR STATUS Negative Normal [facility] Comment on above: Order Comment: Speci men Type: BLOOD SPECIMEN Performed By: #### T SCR ####[facility] BANKCLIA [id number] [address] Rh Nom (Bld) Positive Normal [facility] Comment on above: Order Comment: Speci men Type: BLOOD SPECIMEN Performed By: #### T SCR ####[facility] BANKCLIA [id number] [address] TYPE AND SCREEN EXPIRATION 03/05/2021 23:59 Normal [facility] Comment on above: Order Comment: Speci men Type: BLOOD SPECIMEN Performed By: #### T SCR ####[facility] BANKCLIA [id number] [address] XR CHEST 1V FRONTALon 2020 XR [...] bilaterally. Likely small right-sided effusion, essentially unchanged. Bag Machine Set Up Operator: PSCB Transcribe Date/Time: Mar 02 2021 7:34A Dictated by : MELVINA MARCIAL MD This examination was interpreted and the report reviewed and electronically signed by: MELVINA MARCIAL MD on Mar 02 2021 7:37AM EST [id number] Normal [facility] ALLIED HEALTHon 03-01-2021 ALLIED HEALTH HNO ID: [id number] Author: RT Marimar(R) Service: Radiology Author Type: [...] Marimar(R) March 01, 2021 8:09 AM Normal [facility] Basic metabolic 2000 panelon 03-01-2021 Anion gap [Moles/Vol] 10 mmol/L Normal 9-18 [facility] Comment on above: Order Comment: Speci men Type: BLOOD SPECIMEN Performed By: #### T SCR #### [facility] CLIA [id number] [address] STATES OF [facility] Calcium [Mass/Vol] 7.6 mg/dL Low 8.5-10.2 [facility] Comment on above: Order Comment: Speci men Type: BLOOD SPECIMEN Performed By: #### T SCR #### [facility] CLIA [id number] [address] STATES OF [facility] Chloride [Moles/Vol] 110 mmol/L High 97-105 [facility] Comment on above: Order Comment: Speci men Type: BLOOD SPECIMEN Performed By: #### T SCR #### [facility] CLIA [id number] [address] [place] CO2 [Moles/Vol] 18 mmol/L Low 22-30 [facility] Comment on above: Order Comment: Speci men Type: BLOOD SPECIMEN Performed By: #### T SCR #### [facility] CLIA [id number] [address] [place] Creatinine [Mass/Vol] 0.90 mg/dL Normal 0.73-1.22 [facility] Comment on above: Order Comment: Speci men Type: BLOOD SPECIMEN Performed By: #### T SCR #### [facility] CLIA [id number] [address] [place] GFR/1.73 sq M.predicted MDRD (S/P/Bld) [Vol rate/Area] mL/min/{1.73_m2} Normal [facility] Comment on above: Order Comment: Speci men [...] GFR. Performed By: #### T SCR #### [facility] CLIA [id number] 1 [place] [address] [place] Glucose [Mass/Vol] 110 mg/dL High 74-99 [facility] Comment on above: Order Comment: Speci men Type: BLOOD SPECIMEN Result Comment: The [place] Diabetes Association (ADA) provides guidance for cutoff [...] Standards of Medical Care in Diabetes 2016, [place] [employer]. Diabetes Care. 2016.39(Suppl 1). Performed By: #### T SCR #### [facility] CLIA [id number] [address] [place] Potassium [Moles/Vol] 4.0 mmol/L Normal 3.7-5.1 [facility] Comment on above: Order Comment: Speci men Type: BLOOD SPECIMEN Performed By: #### T SCR #### [facility] CLIA [id number] 1 [place] [address] [place] Sodium [Moles/Vol] 138 mmol/L Normal 136-144 [facility] Comment on above: Order Comment: Speci men Type: BLOOD SPECIMEN Performed By: #### T SCR #### [facility] CLIA [id number] [address] Urea nitrogen [Mass/Vol] 22 mg/dL Normal 9-24 [facility] Comment on above: Order Comment: Speci men Type: BLOOD SPECIMEN Performed By: #### T SCR #### [facility] CLIA [id number] [address] CASE MANAGEMon 03-01-2021 CASE MANAGEM HNO ID: [id number] Author: Irais Weber RN Service: ? Author Type: Registered Nurse Type: Care Mgt Progress Note Filed: 03/01/2021 1:17 PM Note Text: CARE MANAGEMENT PROGRESS NOTE SERVICE DATE: 03/01/2021 SERVICE TIME: 1:13 PM LOS: 6 days Needs Prior to Discharge: To Be Determined;Discharge Prescriptions;OT/PT Evaluation;Precertifica tion;Discharge Transportation Spoke with pt's dtr Luna re acute rehab at [facility]. They are stating inappropriate LOC at this [...] 01, 2021 TIME: 1:13 PM PAGER/CONTACT #: [phone] Normal [facility] CBC panel Auto (Bld)on 03-01 Erythrocyte distribution width (RBC) [Ratio] 13.1 % Normal 11.5-15.0 [facility] Comment on above: Order Comment: Speci men Type: BLOOD SPECIMEN Performed By: #### 5 8410-2 ####[facility]ATORYCLIA [id number] [address] Hematocrit (Bld) [Volume fraction] 21.8 % Low 39.0-51.0 [facility] Comment on above: Order Comment: Speci men Type: BLOOD SPECIMEN Performed By: #### 5 8410-2 ####[facility]ORYCLIA [id number] [address] Hemoglobin (Bld) [Mass/Vol] 7.0 g/dL Low 13.0-17.0 [facility] Comment on above: Order Comment: Speci men Type: BLOOD SPECIMEN Performed By: #### 5 8410-2 ####[facility]ORYCLIA [id number] [address] MCH (RBC) [Entitic mass] 31.7 pg Normal 26.0-34.0 [facility] Comment on above: Order Comment: Speci men Type: BLOOD SPECIMEN Performed By: #### 5 8410-2 ####[facility]ORYCLIA [id number] [address] MCHC (RBC) [Mass/Vol] 32.1 g/dL Normal 30.5-36.0 [facility] Comment on above: Order Comment: Speci men Type: BLOOD SPECIMEN Performed By: #### 5 8410-2 ####[facility]ORYCLIA [id number] [address] MCV (RBC) [Entitic vol] 98.6 fL Normal 80.0-100.0 [facility] Comment on above: Order Comment: Speci men Type: BLOOD SPECIMEN Performed By: #### 5 8410-2 ####[facility]ORYCLIA [id number] [address] Nucleated RBC (Bld) [#/Vol] 10*3/uL Normal <0.01 [facility] Comment on above: Order Comment: Speci men Type: BLOOD SPECIMEN Performed By: #### 5 8410-2 ####[facility]ORYCLIA [id number] [address] Platelet mean volume (Bld) [Entitic vol] 10.2 fL Normal 9.0-12.7 [facility] Comment on above: Order Comment: Speci men Type: BLOOD SPECIMEN Performed By: #### 5 8410-2 ####[facility]ORYCLIA [id number] [address] Platelets (Bld) [#/Vol] 207 10*3/uL Normal 150-400 [facility] Comment on above: Order Comment: Speci men Type: BLOOD SPECIMEN Performed By: #### 5 8410-2 ####[facility]ORYCLIA [id number] [address] RBC (Bld) [#/Vol] 2.21 10*6/uL Low 4.20-6.00 [facility] Comment on above: Order Comment: Speci men Type: BLOOD SPECIMEN Performed By: #### 5 8410-2 ####[facility]ORYCLIA [id number] [address] WBC (Bld) [#/Vol] 8.25 10*3/uL Normal 3.70-11.00 [facility] Comment on above: Order Comment: Speci men Type: BLOOD SPECIMEN Performed By: #### 5 8410-2 ####[facility]ORYCLIA [id number] [address] XR CHEST 1V FRONTALon 2020 XR [...] . IMPRESSION: Stable appearance of the chest. Bag Machine Set Up Operator: JABARI Transcribe Date/Time: Mar 01 2021 9:22A Dictated by : ANMOL YAP MD This examination was interpreted and the report reviewed and electronically signed by: ANMOL YAP MD on Mar 01 2021 9:23AM EST [id number] Normal [facility] Basic metabolic 2000 panelon 02-28-2021 Anion gap [Moles/Vol] 7 mmol/L Low 9-18 [facility] Comment on above: Order Comment: Speci men Type: BLOOD SPECIMEN Performed By: #### 2 4320-2, ####[facility]ORYCLIA [id number] [address] STATES OF [facility] Calcium [Mass/Vol] 7.3 mg/dL Low 8.5-10.2 [facility] Comment on above: Order Comment: Speci men Type: BLOOD SPECIMEN Performed By: #### 2 4320-2, ####[facility]ORYCLIA [id number] [place] [address] [place] Chloride [Moles/Vol] 113 mmol/L High 97-105 [facility] Comment on above: Order Comment: Speci men Type: BLOOD SPECIMEN Performed By: #### 2 4320-2, ####[facility]ATORYCLIA [id number] [place] [address] [place] CO2 [Moles/Vol] 19 mmol/L Low 22-30 [facility] Comment on above: Order Comment: Speci men Type: BLOOD SPECIMEN Performed By: #### 2 4320-2, ####[facility]ORYCLIA [id number] [place] [address] [place] Creatinine [Mass/Vol] 1.09 mg/dL Normal 0.73-1.22 [facility] Comment on above: Order Comment: Speci men Type: BLOOD SPECIMEN Performed By: #### 2 4320-2, ####[facility]ORYCLIA [id number] [place] [address] [place] GFR/1.73 sq M.predicted MDRD (S/P/Bld) [Vol rate/Area] mL/min/{1.73_m2} Normal [facility] Comment on above: Order Comment: Speci men Type: BLOOD SPECIMEN Result Comment: >60 eGFR (Estimated GFR) Units of measure: mL/min/1.73 meters squared eGFR is derived from the reexpressed MDRD Study equation using the following parameters: serum creatinine, age, gender and race. The creatinine assay has been calibrated to be traceable to IDMO. An eGFR <60 mL/min/1.73m2 for >3 months is consistent with chronic kidney disease. Refer to KDOQI guidelines for clinical interpretation. In patients with unstable renal function, e.g. those with acute kidney injury, the eGFR may not accurately reflect actual GFR. Performed By: #### 2 4321-2, 33130-6 ####[facility]PITALIA [id number] [place] [id number] [place] Glucose [Mass/Vol] 143 mg/dL High 74-99 [facility] Comment on above: Order Comment: Speci men Type: BLOOD SPECIMEN Result Comment: The [place] Diabetes Association (ADA) provides guidance for cutoff [...] Standards of Medical Care in Diabetes 2016, [place] [employer]. Diabetes Care. 2016.39(Suppl 1). Performed By: #### 2 4321-2, 29057-6 ####[facility]ORATORYCLIA [id number] [place] [address] [place] Potassium [Moles/Vol] 4.7 mmol/L Normal 3.7-5.1 [facility] Comment on above: Order Comment: Speci men Type: BLOOD SPECIMEN Performed By: #### 2 4321-2, ####[facility]ORATORYCLIA [id number] [place] [address] [facility] Sodium [Moles/Vol] 139 mmol/L Normal 136-144 [facility] Comment on above: Order Comment: Speci men Type: BLOOD SPECIMEN Performed By: #### 2 4321-2, ####[facility]ORATORYCLIA [id number] [place] [address] [facility] Urea nitrogen [Mass/Vol] 23 mg/dL Normal 9-24 [facility] Comment on above: Order Comment: Speci men Type: BLOOD SPECIMEN Performed By: #### 2 4321-2, ####[facility] LABORATORYCLIA [id number] [place] [id number] [facility] CASE MANAGEMon 02-28-2021 CASE MANAGEM HNO ID: [id number] Author: Irais Weber RN Service: ? Author [...] have anyone to stay with him at [facility]. He would like to be set up for acute rehab at [facility]. Explained will need authorization from [employer], repeat PT/OT evals. Referral sent to [facility] acute rehab. SIGNATURE: Irais Weber RN PATIENT NAME: Kulwant Andrade DATE: February 28, 2021 TIME: 3:10 PM PAGER/CONTACT #: [phone] Normal [facility] CBC panel Auto (Bld)on 02-28 Erythrocyte distribution width (RBC) [Ratio] 12.8 % Normal 11.5-15.0 [facility] Comment on above: Order Comment: Speci men Type: BLOOD SPECIMEN Performed By: #### 5 8410-2 ####[facility]ORATORYCLIA [id number] [address] Hematocrit (Bld) [Volume fraction] 22.3 % Low 39.0-51.0 [facility] Comment on above: Order Comment: Speci men Type: BLOOD SPECIMEN Performed By: #### 5 8410-2 ####[facility]ATORYCLIA [id number] [address] Hemoglobin (Bld) [Mass/Vol] 7.0 g/dL Low 13.0-17.0 [facility] Comment on above: Order Comment: Speci men Type: BLOOD SPECIMEN Performed By: #### 5 8410-2 ####[facility]ATORYCLIA [id number] [address] MCH (RBC) [Entitic mass] 32.1 pg Normal 26.0-34.0 [facility] Comment on above: Order Comment: Speci men Type: BLOOD SPECIMEN Performed By: #### 5 8410-2 ####[facility]ATORYCLIA [id number] [address] MCHC (RBC) [Mass/Vol] 31.4 g/dL Normal 30.5-36.0 [facility] Comment on above: Order Comment: Speci men Type: BLOOD SPECIMEN Performed By: #### 5 8410-2 ####[facility]ATORYCLIA [id number] [address] MCV (RBC) [Entitic vol] 102.3 fL High 80.0-100.0 [facility] Comment on above: Order Comment: Speci men Type: BLOOD SPECIMEN Performed By: #### 5 8410-2 ####[facility]ATORYCLIA [id number] [address] Nucleated RBC (Bld) [#/Vol] 10*3/uL Normal <0.01 [facility] Comment on above: Order Comment: Speci men Type: BLOOD SPECIMEN Performed By: #### 5 8410-2 ####[facility]ORYCLIA [id number] [address] Platelet mean volume (Bld) [Entitic vol] 10.3 fL Normal 9.0-12.7 [facility] Comment on above: Order Comment: Speci men Type: BLOOD SPECIMEN Performed By: #### 5 8410-2 ####[facility]ATORYCLIA [id number] [address] Platelets (Bld) [#/Vol] 165 10*3/uL Normal 150-400 [facility] Comment on above: Order Comment: Speci men Type: BLOOD SPECIMEN Performed By: #### 5 8410-2 ####[facility]ORYCLIA [id number] [address] RBC (Bld) [#/Vol] 2.18 10*6/uL Low 4.20-6.00 [facility] Comment on above: Order Comment: Speci men Type: BLOOD SPECIMEN Performed By: #### 5 8410-2 ####[facility]ORYCLIA [id number] [address] WBC (Bld) [#/Vol] 9.42 10*3/uL Normal 3.70-11.00 [facility] Comment on above: Order Comment: Speci men Type: BLOOD SPECIMEN Performed By: #### 5 8410-2 ####[facility]ATORYCLIA [id number] [address] Magnesium SerPl-mCncon 02-28 Magnesium [Mass/Vol] 2.0 mg/dL Normal 1.7-2.3 [facility] Comment on above: Order Comment: Speci men Type: BLOOD SPECIMEN Performed By: #### 2 4321-2, 27065-0 ####[facility]ATORYCLIA [id number] [address] [place] PT EDon 02-28-2021 PT ED HNO ID: [id number] Author: Emani Sheehan RD Service: Nutrition Therapy [...] 2021 TIME: 3:30 PM PAGER: [phone] Normal [facility] XR CHEST 1V FRONTALon 2020 XR CHEST [...] the lung bases most consistent with atelectasis. Bag Machine Set Up Operator: JABARI Transcribe Date/Time: Feb 28 2021 6:53A Dictated by : ISABEL MAK MD This examination was interpreted and the report reviewed and electronically signed by: ISABEL MAK MD on Feb 28 2021 6:54AM EST [id number] Normal [facility] ALLIED HEALTHon 02-27-2021 ALLIED HEALTH HNO ID: [id number] Author: RT Bela(R) Service: Radiology Author Type: [...] Bela(R) February 27, 2021 5:40 AM Normal [facility] ANES POSTPROC EVALon 021 ANES POSTPROC EVAL HNO ID: [id number] Author: Rodrigo Rubin DO Service: Anesthesiology Author Type: Physician Type: Anesthesia Postprocedure Evaluation Filed: 02/27/2021 7:21 AM Note Text: POST ANESTHESIA EVALUATION NOTE : 1940 Procedure Summary Date: 02/26/21 Room / Location: [place] OR 05 / [place] Anesthesia Start: 943 Anesthesia Stop: 1426 Procedure: BYPASS GRAFT ARTERY CORONARY ON-PUMP THREE CORONARY ARTERIAL GRAFTS (N/A Chest) 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 Surgeons: Todd Grewal [...] February 27, 2021 TIME: 7:18 AM CSN: [id number] Normal [facility] Basic metabolic 2000 panelon 02-27-2021 Anion gap [Moles/Vol] 7 mmol/L Low 9-18 [facility] Comment on above: Order Comment: Speci men Type: BLOOD SPECIMEN Performed By: #### 2 4320-07, ####[facility]ORATORYCLIA [id number] [place] [address] [place] Calcium [Mass/Vol] 7.9 mg/dL Low 8.5-10.2 [facility] Comment on above: Order Comment: Speci men Type: BLOOD SPECIMEN Performed By: #### 2 4320-07, ####[facility]ATORYCLIA [id number] [place] [address] [place] Chloride [Moles/Vol] 112 mmol/L High 97-105 [facility] Comment on above: Order Comment: Speci men Type: BLOOD SPECIMEN Performed By: #### 2 2, ####[facility]ATORYCLIA [id number] [place] [address] [place] CO2 [Moles/Vol] 21 mmol/L Low 22-30 [facility] Comment on above: Order Comment: Speci men Type: BLOOD SPECIMEN Performed By: #### 2 4320-07, ####[facility]ATORYCLIA [id number] [place] [address] [place] Creatinine [Mass/Vol] 1.04 mg/dL Normal 0.73-1.22 [facility] Comment on above: Order Comment: Speci men Type: BLOOD SPECIMEN Performed By: #### 2 4321-2, 45381-0 ####[facility]ATORYCLIA [id number] [place] [address] [place] GFR/1.73 sq M.predicted MDRD (S/P/Bld) [Vol rate/Area] mL/min/{1.73_m2} Normal [facility] Comment on above: Order Comment: Speci men [...] actual GFR. Performed By: #### 2 4321-2, 29537-0 ####[facility]ATORYCLIA [id number] [place] [address] [place] Glucose [Mass/Vol] 90 mg/dL Normal 74-99 [facility] Comment on above: Order Comment: Speci men Type: BLOOD SPECIMEN Result Comment: The [place] Diabetes Association (ADA) provides guidance for cutoff [...] Standards of Medical Care in Diabetes 2016, [place] [employer]. Diabetes Care. 2016.39(Suppl 1). Performed By: #### 2 4321-2, ####[facility]ATORYCLIA [id number] [address] Potassium [Moles/Vol] 5.1 mmol/L Normal 3.7-5.1 [facility] Comment on above: Order Comment: Speci men Type: BLOOD SPECIMEN Performed By: #### 2 4321-2, ####[facility]ATORYCLIA [id number] [place], [place] [address] [place] [address] Sodium [Moles/Vol] 140 mmol/L Normal 136-144 [facility] Comment on above: Order Comment: Speci men Type: BLOOD SPECIMEN Performed By: #### 2 432-2, ####[facility]ORYCLIA [id number] [address] Urea nitrogen [Mass/Vol] 21 mg/dL Normal 9-24 [facility] Comment on above: Order Comment: Speci men Type: BLOOD SPECIMEN Performed By: #### 2 432-2, ####[facility]ORYCLIA [id number] [address] CASE MANAGEMon 02-27-2021 CASE MANAGEM HNO ID: [id number] Author: Irais Weber RN Service: ? Author Type: Registered Nurse Type: Care Mgt Progress Note Filed: 02/27/2021 11:02 AM Note Text: CARE MANAGEMENT PROGRESS NOTE SERVICE DATE: 02/27/2021 SERVICE TIME: 11:01 AM LOS: 4 days [place] of Choice Given: Yes Level of Care [...] finding someone to stay with him at [facility]. He is agreeable to [facility] and prefers [facility] - referral created. SIGNATURE: Irais Weber RN PATIENT NAME: Kulwant Andrade DATE: February 27, 2021 TIME: 11:01 AM PAGER/CONTACT #: [phone] Normal [facility] CBC panel Auto (Bld)on 02-27 Erythrocyte distribution width (RBC) [Ratio] 12.5 % Normal 11.5-15.0 [facility] Comment on above: Order Comment: Speci men Type: BLOOD SPECIMEN Performed By: #### 5 8410-2 ####[facility]ATORYCLIA [id number] [address] Hematocrit (Bld) [Volume fraction] 26.7 % Low 39.0-51.0 [facility] Comment on above: Order Comment: Speci men Type: BLOOD SPECIMEN Performed By: #### 5 8410-2 ####[facility]ATORYCLIA [id number] [address] OF [facility] Hemoglobin (Bld) [Mass/Vol] 8.5 g/dL Low 13.0-17.0 [facility] Comment on above: Order Comment: Speci men Type: BLOOD SPECIMEN Performed By: #### 5 8410-2 ####[facility]ATORYCLIA [id number] [address] OF [facility] MCH (RBC) [Entitic mass] 31.0 pg Normal 26.0-34.0 [facility] Comment on above: Order Comment: Speci men Type: BLOOD SPECIMEN Performed By: #### 5 8410-2 ####[facility]ATORYCLIA [id number] [address] OF [facility] MCHC (RBC) [Mass/Vol] 31.8 g/dL Normal 30.5-36.0 [facility] Comment on above: Order Comment: Speci men Type: BLOOD SPECIMEN Performed By: #### 5 8410-2 ####[facility]ATORYCLIA [id number] [address] MCV (RBC) [Entitic vol] 97.4 fL Normal 80.0-100.0 [facility] Comment on above: Order Comment: Speci men Type: BLOOD SPECIMEN Performed By: #### 5 8410-2 ####[facility]ATORYCLIA [id number] [address] Nucleated RBC (Bld) [#/Vol] 10*3/uL Normal <0.01 [facility] Comment on above: Order Comment: Speci men Type: BLOOD SPECIMEN Performed By: #### 5 8410-2 ####[facility]ATORYCLIA [id number] [address] Platelet mean volume (Bld) [Entitic vol] 10.1 fL Normal 9.0-12.7 [facility] Comment on above: Order Comment: Speci men Type: BLOOD SPECIMEN Performed By: #### 5 8410-2 ####[facility]ATORYCLIA [id number] [address] Platelets (Bld) [#/Vol] 201 10*3/uL Normal 150-400 [facility] Comment on above: Order Comment: Speci men Type: BLOOD SPECIMEN Performed By: #### 5 8410-2 ####[facility]ATORYCLIA [id number] [address] OF [facility] RBC (Bld) [#/Vol] 2.74 10*6/uL Low 4.20-6.00 [facility] Comment on above: Order Comment: Speci men Type: BLOOD SPECIMEN Performed By: #### 5 8410-2 ####[facility]ORYCLIA [id number] [address] WBC (Bld) [#/Vol] 10.26 10*3/uL Normal 3.70-11.00 [facility] Comment on above: Order Comment: Speci men Type: BLOOD SPECIMEN Performed By: #### 5 8410-2 ####[facility]ATORYCLIA [id number] [place] [address] [place] Magnesium SerPl-mCncon 02-27 Magnesium [Mass/Vol] 1.8 mg/dL Normal 1.7-2.3 [facility] Comment on above: Order Comment: Speci men Type: BLOOD SPECIMEN Performed By: #### 2 4321-2, 10605-9 ####[facility]ATORYCLIA [id number] [place] [address] [facility] NUTRITIONon 02-27-2021 NUTRITION HNO ID: [id number] Author: Tsering Keyes RD Service: Nutrition Therapy Author Type: Registered Dietitian Type: Nutrition Filed: 02/27/2021 8:45 AM Note Text: NUTRITION THERAPY PROGRESS NOTE SERVICE DATE: 02/27/2021 SERVICE TIME: 8:37 Nutrition Assessment: Recommended Malnutrition Diagnosis: No Malnutrition Identified (02/25/21 1220 : Kiera Valdez RD) Estimated kilocalorie needs: 6221-7139 Calorie Calculation Method: 25-30 kcals/kg Estimated protein [...] February 27, 2021 TIME: 8:37 AM PAGER: [phone] Normal [facility] THERAPY NTon 02-27-2021 THERAPY NT HNO ID: [id number] Author: Tsering Lopez OTR/L Service: Occupational Therapy Author Type: Occupational Therapist Type: Therapy (PT/OT/Speech/Resp) Filed: 02/27/2021 3:06 PM Note Text: Occupational Therapy Evaluation SERVICE DATE: 02/27/2021 SERVICE TIME: 1422 to 1437 ROOM: [place] [address] Recommended Discharge Disposition: Subacute/SNF Recommended Discharge Disposition [...] Environment Patient Lives With: Self/Alone 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 PLAN: (more content not included)... 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 Overlying cardiac rehabilitation specialist leads. Intact median sternotomy wires. Lungs and pleura: Patchy diminished aeration at both lung bases most likely atelectasis. Small lung volumes. No pneumothorax. Cardiomediastinal silhouette: Normal cardiomediastinal silhouette. Other: No significant additional findings. IMPRESSION: Status post extubation. Postextubation atelectasis at the lung bases. Bag Machine Set Up Operator: PSCB Transcribe Date/Time: Feb 27 2021 6:57A Dictated by : ISABEL MAK MD This examination was interpreted and the report reviewed and electronically signed by: ISABEL MAK MD on Feb 27 2021 6:58AM EST [id number] Normal [facility] ALLIED HEALTHon 02-26-2021 ALLIED HEALTH HNO ID: [id number] Author: RT Wilbert(Dana) Service: ? Author Type: [...] Wilbert(R) February 26, 2021 2:53 PM Normal [facility] ANES PRE-OPon 02-26-2021 ANES PRE-OP HNO ID: [id number] Author: Rodrigo Rubin DO Service: Anesthesiology Author [...] - omeprazole (more content not included)... Normal [facility] ARTERIAL BLOOD GASESon 02-26 BASE DEFICIT, ARTERIAL -5.5 mmol/L Low -2-0 [facility] Comment on above: Order Comment: Speci men Type: ARTERIAL BLOOD SPECIMEN Performed By: #### A LLBG ####[facility]ORATORYCLIA [id number] [place] [address] [place] Body temperature 97.16 [degF] Normal [facility] Comment on above: Order Comment: Speci men Type: ARTERIAL BLOOD SPECIMEN Performed By: #### A LLBG ####[facility]ORYCLIA [id number] [address] CALCIUM IONIZED, PH CORRECTED 1.21 mmol/L Normal 1.08-1.30 [facility] Comment on above: Order Comment: Speci men Type: ARTERIAL BLOOD SPECIMEN Performed By: #### A LLBG ####[facility]ORYCLIA [id number] [address] Calcium.ionized (BldV) [Mass/Vol] 1.27 mmol/L Normal 1.08-1.30 [facility] Comment on above: Order Comment: Speci men Type: ARTERIAL BLOOD SPECIMEN Performed By: #### A LLBG ####[facility]ATORYCLIA [id number] [address] OF [facility] Carboxyhemoglobin (BldA) [Mass fraction] 1.0 % Normal 0.0-2.0 [facility] Comment on above: Order Comment: Speci men Type: ARTERIAL BLOOD SPECIMEN Result Comment: Carb oxyhemoglobin Reference Range for Smokers: 2.0-8.0% Performed By: #### A LLBG ####[facility]ORYCLIA [id number] [address] [place] CO2 (Bld) [Partial pressure] 42 mm Hg Normal 36-46 [facility] Comment on above: Order Comment: Speci men Type: ARTERIAL BLOOD SPECIMEN Performed By: #### A LLBG ####[facility]ORYCLIA [id number] [address] OF [place] CO2 [Moles/Vol] 19.0 mmol/L Low 22-28 [facility] Comment on above: Order Comment: Speci men Type: ARTERIAL BLOOD SPECIMEN Performed By: #### A LLBG ####[facility]ORYCLIA [id number] [address] [place] CO2 adjusted to patient's actual temperature (Bld) [Partial pressure] 40 mmHg Normal 36-46 [facility] Comment on above: Order Comment: Speci men Type: ARTERIAL BLOOD SPECIMEN Performed By: #### A LLBG ####[facility]ORYCLIA [id number] [address] Glucose [Mass/Vol] 99 mg/dL Normal 60-105 [facility] Comment on above: Order Comment: Speci men Type: ARTERIAL BLOOD SPECIMEN Performed By: #### A LLBG ####[facility]ORYCLIA [id number] [address] HCO3 (Bld) [Moles/Vol] 20 mmol/L Low 22-26 [facility] Comment on above: Order Comment: Speci men Type: ARTERIAL BLOOD SPECIMEN Performed By: #### A LLBG ####[facility]ORYCLIA [id number] [address] Hematocrit (Bld) [Volume fraction] 29.7 % Low 39.0-51.0 [facility] Comment on above: Order Comment: Speci men Type: ARTERIAL BLOOD SPECIMEN Performed By: #### A LLBG ####[facility]ORYCLIA [id number] [address] Hemoglobin (Bld) [Mass/Vol] 9.6 g/dL Low 13.0-17.0 [facility] Comment on above: Order Comment: Speci men Type: ARTERIAL BLOOD SPECIMEN Performed By: #### A LLBG ####[facility]ORYCLIA [id number] [address] Methemoglobin (Bld) [Mass fraction] % Normal 0.0-1.5 [facility] Comment on above: Order Comment: Speci men Type: ARTERIAL BLOOD SPECIMEN Performed By: #### A LLBG ####[facility]ATORYCLIA [id number] [address] O2 THERAPY Ventilator Normal [facility] Comment on above: Order Comment: Speci men Type: ARTERIAL BLOOD SPECIMEN Performed By: #### A LLBG ####[facility]ATORYCLIA [id number] [place], [place] [id number] [place] [address] OF [facility] Oxygen (Bld) [Partial pressure] 118 mm Hg High 85-95 [facility] Comment on above: Order Comment: Speci men Type: ARTERIAL BLOOD SPECIMEN Performed By: #### A LLBG ####[facility]ATORYCLIA [id number] [place], [place] [address] [place] [address] Oxygen adjusted to patient's actual temperature (Bld) [Partial pressure] 113 mmHg High 85-95 [facility] Comment on above: Order Comment: Speci men Type: ARTERIAL BLOOD SPECIMEN Performed By: #### A LLBG ####[facility]ATORYCLIA [id number] [address] OXYGEN SATURATION, ARTERIAL 97 % Normal 95-98 [facility] Comment on above: Order Comment: Speci men Type: ARTERIAL BLOOD SPECIMEN Performed By: #### A LLBG ####[facility]ATORYCLIA [id number] [address] Oxyhemoglobin (BldA) [Mass fraction] 95 % Normal 95-98 [facility] Comment on above: Order Comment: Speci men Type: ARTERIAL BLOOD SPECIMEN Performed By: #### A LLBG ####[facility]ATORYCLIA [id number] [address] [place] pH (Bld) 7.30 [pH] Low 7.35-7.45 [facility] Comment on above: Order Comment: Speci men Type: ARTERIAL BLOOD SPECIMEN Performed By: #### A LLBG ####[facility]ORATORYCLIA [id number] [address] pH adjusted to patient's actual temperature (Bld) 7.31 Low 7.35-7.45 [facility] Comment on above: Order Comment: Speci men Type: ARTERIAL BLOOD SPECIMEN Performed By: #### A LLBG ####[facility]ATORYCLIA [id number] [address] Potassium [Moles/Vol] 4.7 mmol/L Normal 3.5-5.0 [facility] Comment on above: Order Comment: Speci men Type: ARTERIAL BLOOD SPECIMEN Performed By: #### A LLBG ####[facility]ORYCLIA [id number] [address] Sodium [Moles/Vol] 138 mmol/L Normal 136-144 [facility] Comment on above: Order Comment: Speci men Type: ARTERIAL BLOOD SPECIMEN Performed By: #### A LLBG ####[facility]ORYCLIA [id number] [address] BASE DEFICIT, ARTERIAL -6.1 mmol/L Low -2-0 [facility] Comment on above: Order Comment: Speci men Type: ARTERIAL BLOOD SPECIMEN Performed By: #### A LLBG ####[facility]ATORYCLIA [id number] [address] Body temperature 96.08 [degF] Normal [facility] Comment on above: Order Comment: Speci men Type: ARTERIAL BLOOD SPECIMEN Performed By: #### A LLBG ####[facility]ATORYCLIA [id number] [address] CALCIUM IONIZED, PH CORRECTED 1.24 mmol/L Normal 1.08-1.30 [facility] Comment on above: Order Comment: Speci men Type: ARTERIAL BLOOD SPECIMEN Performed By: #### A LLBG ####[facility]ORYCLIA [id number] [address] Calcium.ionized (BldV) [Mass/Vol] 1.26 mmol/L Normal 1.08-1.30 [facility] Comment on above: Order Comment: Speci men Type: ARTERIAL BLOOD SPECIMEN Performed By: #### A LLBG ####[facility]ORYCLIA [id number] [address] Carboxyhemoglobin (BldA) [Mass fraction] 1.1 % Normal 0.0-2.0 [facility] Comment on above: Order Comment: Speci men Type: ARTERIAL BLOOD SPECIMEN Result Comment: Carb oxyhemoglobin Reference Range for Smokers: 2.0-8.0% Performed By: #### A LLBG ####[facility]ORYCLIA [id number] [address] CO2 (Bld) [Partial pressure] 32 mm Hg Low 36-46 [facility] Comment on above: Order Comment: Speci men Type: ARTERIAL BLOOD SPECIMEN Performed By: #### A LLBG ####[facility]ORYCLIA [id number] [address] CO2 [Moles/Vol] 16.9 mmol/L Low 22-28 [facility] Comment on above: Order Comment: Speci men Type: ARTERIAL BLOOD SPECIMEN Performed By: #### A LLBG ####[facility]ORYCLIA [id number] [address] CO2 adjusted to patient's actual temperature (Bld) [Partial pressure] 30 mmHg Low 36-46 [facility] Comment on above: Order Comment: Speci men Type: ARTERIAL BLOOD SPECIMEN Performed By: #### A LLBG ####[facility]ORYCLIA [id number] [address] Glucose [Mass/Vol] 90 mg/dL Normal 60-105 [facility] Comment on above: Order Comment: Speci men Type: ARTERIAL BLOOD SPECIMEN Performed By: #### A LLBG ####[facility]ORYCLIA [id number] [address] HCO3 (Bld) [Moles/Vol] 18 mmol/L Low 22-26 [facility] Comment on above: Order Comment: Speci men Type: ARTERIAL BLOOD SPECIMEN Performed By: #### A LLBG ####[facility]ORYCLIA [id number] [address] Hematocrit (Bld) [Volume fraction] 29.7 % Low 39.0-51.0 [facility] Comment on above: Order Comment: Speci men Type: ARTERIAL BLOOD SPECIMEN Performed By: #### A LLBG ####[facility]ORYCLIA [id number] [address] Hemoglobin (Bld) [Mass/Vol] 9.6 g/dL Low 13.0-17.0 [facility] Comment on above: Order Comment: Speci men Type: ARTERIAL BLOOD SPECIMEN Performed By: #### A LLBG ####[facility]ATORYCLIA [id number] [address] Methemoglobin (Bld) [Mass fraction] 1.4 % Normal 0.0-1.5 [facility] Comment on above: Order Comment: Speci men Type: ARTERIAL BLOOD SPECIMEN Performed By: #### A LLBG ####[facility]ATORYCLIA [id number] [address] O2 THERAPY Ventilator Normal [facility] Comment on above: Order Comment: Speci men Type: ARTERIAL BLOOD SPECIMEN Performed By: #### A LLBG ####[facility]ORYCLIA [id number] [address] Oxygen (Bld) [Partial pressure] 179 mm Hg High 85-95 [facility] Comment on above: Order Comment: Speci men Type: ARTERIAL BLOOD SPECIMEN Performed By: #### A LLBG ####[facility]ORYCLIA [id number] [address] Oxygen adjusted to patient's actual temperature (Bld) [Partial pressure] 173 mmHg High 85-95 [facility] Comment on above: Order Comment: Speci men Type: ARTERIAL BLOOD SPECIMEN Performed By: #### A LLBG ####[facility]ORYCLIA [id number] [address] OXYGEN SATURATION, ARTERIAL 98 % Normal 95-98 [facility] Comment on above: Order Comment: Speci men Type: ARTERIAL BLOOD SPECIMEN Performed By: #### A LLBG ####[facility]ORYCLIA [id number] [address] [place] Oxyhemoglobin (BldA) [Mass fraction] 96 % Normal 95-98 [facility] Comment on above: Order Comment: Speci men Type: ARTERIAL BLOOD SPECIMEN Performed By: #### A LLBG ####[facility]ORYCLIA [id number] [address] [place] pH (Bld) 7.37 [pH] Normal 7.35-7.45 [facility] Comment on above: Order Comment: Speci men Type: ARTERIAL BLOOD SPECIMEN Performed By: #### A LLBG ####[facility]ORYCLIA [id number] [address] pH adjusted to patient's actual temperature (Bld) 7.39 Normal 7.35-7.45 [facility] Comment on above: Order Comment: Speci men Type: ARTERIAL BLOOD SPECIMEN Performed By: #### A LLBG ####[facility]ATORYCLIA [id number] [address] [place] Potassium [Moles/Vol] 3.6 mmol/L Normal 3.5-5.0 [facility] Comment on above: Order Comment: Speci men Type: ARTERIAL BLOOD SPECIMEN Performed By: #### A LLBG ####[facility]ORYCLIA [id number] [address] STATES OF [facility] Sodium [Moles/Vol] 140 mmol/L Normal 136-144 [facility] Comment on above: Order Comment: Speci men Type: ARTERIAL BLOOD SPECIMEN Performed By: #### A LLBG ####[facility]ORYCLIA [id number] [place] [address] [place] Basic metabolic 2000 panelon 02-26-2021 Anion gap [Moles/Vol] 9 mmol/L Normal 9-18 [facility] Comment on above: Order Comment: Speci men Type: BLOOD SPECIMEN Performed By: #### 2 4321-2, 38302-1 ####[facility]ORYCLIA [id number] [address] [place] Calcium [Mass/Vol] 8.6 mg/dL Normal 8.5-10.2 [facility] Comment on above: Order Comment: Speci men Type: BLOOD SPECIMEN Performed By: #### 2 432-2, ####[facility]ATORYCLIA [id number] [place], [place] [address] [place] [address] [place] Chloride [Moles/Vol] 112 mmol/L High 97-105 [facility] Comment on above: Order Comment: Speci men Type: BLOOD SPECIMEN Performed By: #### 2 432-2, ####[facility]ORYCLIA [id number] [address] [place] CO2 [Moles/Vol] 19 mmol/L Low 22-30 [facility] Comment on above: Order Comment: Speci men Type: BLOOD SPECIMEN Performed By: #### 2 4322, ####[facility]ORYCLIA [id number] [address] [place] Creatinine [Mass/Vol] 1.06 mg/dL Normal 0.73-1.22 [facility] Comment on above: Order Comment: Speci men Type: BLOOD SPECIMEN Performed By: #### 2 432-2, ####[facility]ORYCLIA [id number] [address] [place] GFR/1.73 sq M.predicted MDRD (S/P/Bld) [Vol rate/Area] mL/min/{1.73_m2} Normal [facility] Comment on above: Order Comment: Speci men [...] actual GFR. Performed By: #### 2 4320-07, ####[facility]ATORYCLIA [id number] [address] [place] Glucose [Mass/Vol] 98 mg/dL Normal 74-99 [facility] Comment on above: Order Comment: Speci men Type: BLOOD SPECIMEN Result Comment: The [place] [employer] (ADA) provides guidance for cutoff [...] Standards of Medical Care in Diabetes 2016, [place] [employer]. Diabetes Care. 2016.39(Suppl 1). Performed By: #### 2 4320-07, ####[facility]ATORYCLIA [id number] [address] [place] Potassium [Moles/Vol] 4.0 mmol/L Normal 3.7-5.1 [facility] Comment on above: Order Comment: Speci men Type: BLOOD SPECIMEN Performed By: #### 2 ####[facility]ORYCLIA [id number] [address] [place] Sodium [Moles/Vol] 140 mmol/L Normal 136-144 [facility] Comment on above: Order Comment: Speci men Type: BLOOD SPECIMEN Performed By: #### 2 4320-07, ####[facility]ORYCLIA [id number] [address] STATES OF [facility] Urea nitrogen [Mass/Vol] 21 mg/dL Normal 9-24 [facility] Comment on above: Order Comment: Speci men Type: BLOOD SPECIMEN Performed By: #### 2 4320-07, ####[facility]ATORYCLIA [id number] [address] CBC panel Auto (Bld)on 02-26 Erythrocyte distribution width (RBC) [Ratio] 12.4 % Normal 11.5-15.0 [facility] Comment on above: Order Comment: Speci men Type: BLOOD SPECIMEN Performed By: #### 5 8410-2 ####[facility]ORYCLIA [id number] [address] Hematocrit (Bld) [Volume fraction] 30.6 % Low 39.0-51.0 [facility] Comment on above: Order Comment: Speci men Type: BLOOD SPECIMEN Performed By: #### 5 8410-2 ####[facility]ORYCLIA [id number] [address] Hemoglobin (Bld) [Mass/Vol] 9.9 g/dL Low 13.0-17.0 [facility] Comment on above: Order Comment: Speci men Type: BLOOD SPECIMEN Performed By: #### 5 8410-2 ####[facility]ORYCLIA [id number] [address] MCH (RBC) [Entitic mass] 31.4 pg Normal 26.0-34.0 [facility] Comment on above: Order Comment: Speci men Type: BLOOD SPECIMEN Performed By: #### 5 8410-2 ####[facility]ORYCLIA [id number] [address] MCHC (RBC) [Mass/Vol] 32.4 g/dL Normal 30.5-36.0 [facility] Comment on above: Order Comment: Speci men Type: BLOOD SPECIMEN Performed By: #### 5 8410-2 ####[facility]ORYCLIA [id number] [address] MCV (RBC) [Entitic vol] 97.1 fL Normal 80.0-100.0 [facility] Comment on above: Order Comment: Speci men Type: BLOOD SPECIMEN Performed By: #### 5 8410-2 ####[facility]ORYCLIA [id number] [address] Nucleated RBC (Bld) [#/Vol] 10*3/uL Normal <0.01 [facility] Comment on above: Order Comment: Speci men Type: BLOOD SPECIMEN Performed By: #### 5 8410-2 ####[facility]ORYCLIA [id number] [address] Platelet mean volume (Bld) [Entitic vol] 10.0 fL Normal 9.0-12.7 [facility] Comment on above: Order Comment: Speci men Type: BLOOD SPECIMEN Performed By: #### 5 8410-2 ####[facility]ORYCLIA [id number] [address] Platelets (Bld) [#/Vol] 206 10*3/uL Normal 150-400 [facility] Comment on above: Order Comment: Speci men Type: BLOOD SPECIMEN Performed By: #### 5 8410-2 ####[facility]ORYCLIA [id number] [address] RBC (Bld) [#/Vol] 3.15 10*6/uL Low 4.20-6.00 [facility] Comment on above: Order Comment: Speci men Type: BLOOD SPECIMEN Performed By: #### 5 8410-2 ####[facility]ORYCLIA [id number] [address] WBC (Bld) [#/Vol] 9.59 10*3/uL Normal 3.70-11.00 [facility] Comment on above: Order Comment: Speci men Type: BLOOD SPECIMEN Performed By: #### 5 8410-2 ####[facility]ORYCLIA [id number] [address] Erythrocyte distribution width (RBC) [Ratio] 12.3 % Normal 11.5-15.0 [facility] Comment on above: Order Comment: Speci men Type: BLOOD SPECIMEN Performed By: #### 5 8410-2 ####[facility]ORYCLIA [id number] [address] Hematocrit (Bld) [Volume fraction] 36.1 % Low 39.0-51.0 [facility] Comment on above: Order Comment: Speci men Type: BLOOD SPECIMEN Performed By: #### 5 8410-2 ####[facility]ORYCLIA [id number] [address] Hemoglobin (Bld) [Mass/Vol] 11.7 g/dL Low 13.0-17.0 [facility] Comment on above: Order Comment: Speci men Type: BLOOD SPECIMEN Performed By: #### 5 8410-2 ####[facility]ORYCLIA [id number] [address] MCH (RBC) [Entitic mass] 31.2 pg Normal 26.0-34.0 [facility] Comment on above: Order Comment: Speci men Type: BLOOD SPECIMEN Performed By: #### 5 8410-2 ####[facility]ORYCLIA [id number] [address] MCHC (RBC) [Mass/Vol] 32.4 g/dL Normal 30.5-36.0 [facility] Comment on above: Order Comment: Speci men Type: BLOOD SPECIMEN Performed By: #### 5 8410-2 ####[facility]ORYCLIA [id number] [address] MCV (RBC) [Entitic vol] 96.3 fL Normal 80.0-100.0 [facility] Comment on above: Order Comment: Speci men Type: BLOOD SPECIMEN Performed By: #### 5 8410-2 ####[facility]ORYCLIA [id number] [address] Nucleated RBC (Bld) [#/Vol] 10*3/uL Normal <0.01 [facility] Comment on above: Order Comment: Speci men Type: BLOOD SPECIMEN Performed By: #### 5 8410-2 ####[facility]ORYCLIA [id number] [address] Platelet mean volume (Bld) [Entitic vol] 10.1 fL Normal 9.0-12.7 [facility] Comment on above: Order Comment: Speci men Type: BLOOD SPECIMEN Performed By: #### 5 8410-2 ####[facility]ORYCLIA [id number] [address] Platelets (Bld) [#/Vol] 236 10*3/uL Normal 150-400 [facility] Comment on above: Order Comment: Speci men Type: BLOOD SPECIMEN Performed By: #### 5 8410-2 ####[facility]ORYCLIA [id number] [address] RBC (Bld) [#/Vol] 3.75 10*6/uL Low 4.20-6.00 [facility] Comment on above: Order Comment: Speci men Type: BLOOD SPECIMEN Performed By: #### 5 8410-2 ####[facility]ATORYCLIA [id number] [address] WBC (Bld) [#/Vol] 5.67 10*3/uL Normal 3.70-11.00 [facility] Comment on above: Order Comment: Speci men Type: BLOOD SPECIMEN Performed By: #### 5 8410-2 ####[facility]ORATORYCLIA [id number] [address] CONSULTon 02-26-2021 CONSULT HNO ID: [id number] Author: Kishore Schwab MD Service: Critical Care [...] disease noted on recent cardiac cath in [place] with preserved EF. Patient had noted increased [...] equal reacti (more content not included)... Normal [facility] Magnesium SerPl-mCncon 02-26 Magnesium [Mass/Vol] 2.4 mg/dL High 1.7-2.3 [facility] Comment on above: Order Comment: Speci men Type: BLOOD SPECIMEN Performed By: #### 2 4321-2, 22048-5 ####[facility] LABORATORYCLIA [id number] [place] [id number] [place] OPERATIVE NOon 02-26-2021 OPERATIVE NO HNO ID: [id number] Author: Todd Grewal MD Service: Cardiac Surgery Author Type: Physician Type: Operative Report Filed: 02/26/2021 4:15 PM Note Text: [facility] CARDIO-THORACICSURGERY OPERATIVE/PROCEDURE REPORT LOG ID: [id number] SURGERY/PROCEDURE DATE: 02/26/2021 INCISION/PROCEDURE START TIME: 10:45 AM INCISION CLOSE/PROCEDURE END TIME: 2:10 PM SURGEON(S)/PROCEDURALIS T(S) AND COMPUTATIONAL THEORY SCIENTIST(S): Surgeon(s) and Role: * Todd Grewal MD - Primary Physician Eyewear Consultant: Timo Hooper PA-C Fruit Farmer: Lorrie Holt SA ANESTHESIA: General CTS OP [...] aorta posterior descending (PDA) Left RE: Skeletonized Holstein Technique: Direct vision (open) Vein(s) Harvested: Left leg greater saphenous Holstein Technique: Endoscopic POST-BYPASS: Aortic Occlusion: Aortic cross [...] pump and the cell saver. Specimens: None SURGEON/COMPUTATIONAL THEORY SCIENTIST PARTICIPATION: The primary Surgeon/Proceduralist performed the procedure with assistance. No qualified Resident/Fellow was available. Information Systems Security Analyst: opened and closed Second Assist: opened, closed and harvested graft Grafts Harvested: left greater saphenous vein OTHER FINDINGS/DETAILS: FAHEEM Denis: first aid instructor Lorrie Holt SA second assist and harvest vein COMPLETED BY: Todd Grewal MD PATIENT NAME: Kulwant Andrade DATE: February 26, 2021 TIME: 4:09 PM AGE: [age] year old Normal [facility] PT panel Coag (PPP)on 2020 INR Coag (PPP) [Relative time] 1.1 {INR} Normal 0.9-1.3 [facility] Comment on above: Order Comment: Speci men Type: BLOOD SPECIMEN Result Comment: Maya min K Antagonist (VKA) Therapeutic Range: INR 2 to 3 (Target INR of 2.5) Note: For patients treated with VKA drugs, such as warfarin, the [place] [employer] 2012 Guideline recommends [...] Chest 2012, 141:7S-47S Renny RA, et al. [facility] 2017, 70: 252-289 Performed By: #### 3 4528-0, 53892-6 ####[facility]ATORYCLIA [id number] [address] PT Coag (PPP) [Time] 11.8 s Normal 9.7-13.0 [facility] Comment on above: Order Comment: Speci men Type: BLOOD SPECIMEN Performed By: #### 3 4528-0, 42499-8 ####[facility]ORATORYCLIA [id number] [address] THROMBOGRAPH HEPARINASE PANE Filiberto 02-26-2021 Clot angle after addition of heparinase TEG (Bld) [Angle] 74.8 degrees High 47.0-74.0 [facility] Comment on above: Order Comment: Speci men Type: BLOOD SPECIMEN Performed By: #### T EGHPP ####[facility]ATORYCLIA [id number] [address] Clot Lysis 30 Min post maximum clot amplitude TEG (Bld) [Length fraction] 1.7 % Normal 0.0-8.0 [facility] Comment on above: Order Comment: Speci men Type: BLOOD SPECIMEN Performed By: #### T EGHPP ####[facility]ATORYCLIA [id number] [address] Clotting time after addition of heparinase TEG (Bld) 6.3 minutes Normal 4.0-10.0 [facility] Comment on above: Order Comment: Speci men Type: BLOOD SPECIMEN Performed By: #### T EGHPP ####[facility]ATORYCLIA [id number] [address] Coagulation index TEG Qn (Bld) 1.2 Normal -4.6-3.2 [facility] Comment on above: Order Comment: Speci men Type: BLOOD SPECIMEN Result Comment: The Coagulation Index, a secondary parameter, is labeled by the city bus driver as for research use only and is used per the city bus driver's instructions. Its performance characteristics were determined by [facility] [place] in a manner consistent with CLIA requirements. This test has not been cleared by the U.S. Food and Drug Administration. Performed By: #### T EGHPP ####[facility]ATORYCLIA [id number] [address] Maximum clot firmness after addition of heparinase TEG (Bld) [Length] 63.6 mm Normal 51.0-75.0 [facility] Comment on above: Order Comment: Speci men Type: BLOOD SPECIMEN Performed By: #### T EGHPP ####[facility]ATORYCLIA [id number] [address] THROMBOGRAPH PANELon 09-28-2 021 Clot angle TEG (Bld) [Angle] 13.2 degrees Low 47.0-74.0 [facility] Comment on above: Order Comment: Speci men Type: BLOOD SPECIMEN Performed By: #### T EGPNP ####[facility]ATORYCLIA [id number] [address] Clot Lysis 30 Min post maximum clot amplitude TEG (Bld) [Length fraction] 0.0 % Normal 0.0-8.0 [facility] Comment on above: Order Comment: Speci men Type: BLOOD SPECIMEN Performed By: #### T EGPNP ####[facility]ATORYCLIA [id number] [address] Clotting time TEG (Bld) 52.8 minutes High 4.0-10.0 [facility] Comment on above: Order Comment: Speci men Type: BLOOD SPECIMEN Performed By: #### T EGPNP ####[facility]ORATORYCLIA [id number] [address] STATES OF [facility] Coagulation index TEG Qn (Bld) -40.1 Low -4.6-3.2 [facility] Comment on above: Order Comment: Speci men Type: BLOOD SPECIMEN Result Comment: The Coagulation Index, a secondary parameter, is labeled by the city bus driver as for research use only and is used per the city bus driver's instructions. Its performance characteristics were determined by [facility] [place] in a manner consistent with CLIA requirements. This test has not been cleared by the U.S. Food and Drug Administration. Performed By: #### T EGPNP ####[facility]ORATORYCLIA [id number] [place] [id number] [place] [facility] Maximum clot firmness TEG (Bld) [Length] 60.5 mm Normal 51.0-75.0 [facility] Comment on above: Order Comment: Speci men Type: BLOOD SPECIMEN Performed By: #### T EGPNP ####[facility]ORATORYCLIA [id number] [place] [id number] [place] XR CHEST 1V FRONTALon [...] available at time of dictation as requested. Bag Machine Set Up Operator: PSCB Transcribe Date/Time: Feb 26 2021 2:58P Dictated by : JAVI LOCKE MD This examination was interpreted and the report reviewed and electronically signed by: JAVI LOCKE MD on Feb 26 2021 3:06PM EST [id number] Normal [facility] aPTT PPPon 02-26-2021 aPTT Coag (PPP) [Time] 43.9 s High 23.0-32.4 [facility] Comment on above: Order Comment: Speci men Type: BLOOD SPECIMEN Performed By: #### 3 4528-0, 64886-7 ####[facility]ORATORYCLIA [id number] [address] OF [facility] ALLIED HEALTHon 02-25-2021 ALLIED HEALTH HNO ID: [id number] Author: Oneida Catherine Instructional Systems Designer Service: Cardiac Rehab Author Type: Instructional Systems Designer Type: Allied Health Filed: 02/25/2021 1:11 PM [...] Assistive Device: IV Pole SIGNATURE: Oneida Catherine Instructional Systems Designer PATIENT NAME: Kulawnt Andrade DATE: February 25, 2021 TIME: 1:11 PM PAGER/CONTACT #: [phone] Normal [facility] Basic metabolic 2000 panelon 02-25-2021 Anion gap [Moles/Vol] 11 mmol/L Normal 9-18 [facility] Comment on above: Order Comment: Speci men Type: BLOOD SPECIMEN Performed By: #### 2 4321-2, ####[facility]ATORYCLIA [id number] [place] [address] [place] Calcium [Mass/Vol] 9.0 mg/dL Normal 8.5-10.2 [facility] Comment on above: Order Comment: Speci men Type: BLOOD SPECIMEN Performed By: #### 2 4321-2, ####[facility]ORATORYCLIA [id number] [place] [address] [place] Chloride [Moles/Vol] 106 mmol/L High 97-105 [facility] Comment on above: Order Comment: Speci men Type: BLOOD SPECIMEN Performed By: #### 2 4321-2, ####[facility]ATORYCLIA [id number] [place] [address] [place] CO2 [Moles/Vol] 23 mmol/L Normal 22-30 [facility] Comment on above: Order Comment: Speci men Type: BLOOD SPECIMEN Performed By: #### 2 4321-2, ####[facility]ATORYCLIA [id number] [place] [address] [place] Creatinine [Mass/Vol] 1.24 mg/dL High 0.73-1.22 [facility] Comment on above: Order Comment: Speci men Type: BLOOD SPECIMEN Performed By: #### 2 4321-2, ####[facility]ATORYCLIA [id number] [place] [address] [place] GFR/1.73 sq M.predicted MDRD (S/P/Bld) [Vol rate/Area] mL/min/{1.73_m2} Normal [facility] Comment on above: Order Comment: Speci men [...] actual GFR. Performed By: #### 2 432-, ####[facility]ORATORYCLIA [id number] [place] [address] [place] Glucose [Mass/Vol] 92 mg/dL Normal 74-99 [facility] Comment on above: Order Comment: Speci [facility] Type: BLOOD SPECIMEN Result Comment: The [place] Diabetes Association (ADA) provides guidance for cutoff [...] Standards of Medical Care in Diabetes 2016, [place] [employer] Association. Diabetes Care. 2016.39(Suppl 1). Performed By: #### 2 4320-07, ####[facility]ATORYCLIA [id number] [place] [address] [place] Potassium [Moles/Vol] 3.9 mmol/L Normal 3.7-5.1 [facility] Comment on above: Order Comment: Speci [facility] Type: BLOOD SPECIMEN Performed By: #### 2 432-, ####[facility]ORATORYCLIA [id number] [place] [address] [place] Sodium [Moles/Vol] 140 mmol/L Normal 136-144 [facility] Comment on above: Order Comment: Speci men Type: BLOOD SPECIMEN Performed By: #### 2 432-2, ####[facility]ORATORYCLIA [id number] [place] [address] [facility] Urea nitrogen [Mass/Vol] 19 mg/dL Normal 9-24 [facility] Comment on above: Order Comment: Speci men Type: BLOOD SPECIMEN Performed By: #### 2 432-2, ####[facility]ORATORYCLIA [id number] [place] [address] [facility] CASE MGT INIT ASSESon 2020 CASE MGT INIT ASSKECIA HNO ID: [id number] Author: Vandana Warren RN Service: Nursing Author Type: Registered Nurse Type: Care Mgt Initial Assessment Filed: 02/25/2021 3:28 PM Note Text: CARE MANAGEMENT: ASSESSMENT AND DISCHARGE PLAN SERVICE DATE: February 25, 2021 SERVICE TIME: 3:25 PM PRIMARY CARE PHYSICIAN: No primary care provider on file. Phone: None ADMISSION STATUS: Inpatient Needs Prior to Discharge: To Be Determined MEDICAL: [employer] MEDICARE PPO Patient/Director Hr Communications Stated Goals: To have reduction in symptoms;To have reduction in pain;To improve my functional status;To return home to life as it was Health Insurance: [employer] Medicare Health Issues Impacting Discharge Plan: Newly diagnosed Newly Diagnosed: CAD Last Discharge Date: N/A Is this Within the Past 30 days? Last discharge within 30 days: No Advance Directive: Current Advance Directive: Health Care Power of Lithographer Helper In Chart: No Health LiteracyHow often do [...] None Has the Patient Been in a Care Home Facility in the Past 30 days?: No [...] plan for meeting these needs: Home with [facility] after CABG Patient's perception of need for this admission: need CABG Medication Adherance I am convinced of the importance of my prescription medication: 0 - Agree Completely I worry that my prescription medication will do more harm than good to me : 0 - Disagree Completely I feel financially burdened by my [id number]-[id number] expenses for my prescription medication:: 0 - Disagree Completely Risk Score: 0 Patient is categorized as: Low risk < 2 Are you interested in bedside delivery of your medications? No Is Patient Psychosocially Complex?: No ASSESSMENT AND PLAN: Medical Needs: Medical Needs: None Psychosocial Needs: Psychosocial Needs: None FREEDOM OF CHOICE EXPLAINED: [place] of Choice Given: No Reason Not Given: Unable to complete with this assessment - revisit POTENTIAL TRANSITION PLANS Home;Home Care Patient from home alone, lives next door to lluvia Carrasco. 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 Patient admitted after heart cath needing CABG. OR scheduled for 02/26/2021. +PCP (oyster picker is Dr. Michelle in [place]) +Rx ([facility] [place]) Plan at discharge is for patient to return home with [facility]. Family will transport patient home. Patient will need PT/OT evals postoperatively. SIGNATURE: Vandana Warren RN PATIENT NAME: Kulwant Andrade DATE: February 25, 2021 TIME: 3:25 PM PAGER/CONTACT #: [phone] Normal [facility] CBC panel Auto (Bld)on 02-25 Erythrocyte distribution width (RBC) [Ratio] 12.4 % Normal 11.5-15.0 [facility] Comment on above: Order Comment: Speci men Type: BLOOD SPECIMEN Performed By: #### 5 8410-2 ####[facility]ORATORYCLIA [id number] [address] Hematocrit (Bld) [Volume fraction] 40.0 % Normal 39.0-51.0 [facility] Comment on above: Order Comment: Speci men Type: BLOOD SPECIMEN Performed By: #### 5 8410-2 ####[facility]ATORYCLIA [id number] [address] Hemoglobin (Bld) [Mass/Vol] 13.2 g/dL Normal 13.0-17.0 [facility] Comment on above: Order Comment: Speci men Type: BLOOD SPECIMEN Performed By: #### 5 8410-2 ####[facility]ORATORYCLIA [id number] [address] MCH (RBC) [Entitic mass] 31.4 pg Normal 26.0-34.0 [facility] Comment on above: Order Comment: Speci men Type: BLOOD SPECIMEN Performed By: #### 5 8410-2 ####[facility]ORATORYCLIA [id number] [address] MCHC (RBC) [Mass/Vol] 33.0 g/dL Normal 30.5-36.0 [facility] Comment on above: Order Comment: Speci men Type: BLOOD SPECIMEN Performed By: #### 5 8410-2 ####[facility]ORATORYCLIA [id number] [address] MCV (RBC) [Entitic vol] 95.0 fL Normal 80.0-100.0 [facility] Comment on above: Order Comment: Speci men Type: BLOOD SPECIMEN Performed By: #### 5 8410-2 ####[facility]ORATORYCLIA [id number] [address] Nucleated RBC (Bld) [#/Vol] 10*3/uL Normal <0.01 [facility] Comment on above: Order Comment: Speci men Type: BLOOD SPECIMEN Performed By: #### 5 8410-2 ####[facility]ORATORYCLIA [id number] [address] Platelet mean volume (Bld) [Entitic vol] 9.7 fL Normal 9.0-12.7 [facility] Comment on above: Order Comment: Speci men Type: BLOOD SPECIMEN Performed By: #### 5 8410-2 ####[facility]ATORYCLIA [id number] [address] Platelets (Bld) [#/Vol] 260 10*3/uL Normal 150-400 [facility] Comment on above: Order Comment: Speci men Type: BLOOD SPECIMEN Performed By: #### 5 8410-2 ####[facility]ATORYCLIA [id number] [address] RBC (Bld) [#/Vol] 4.21 10*6/uL Normal 4.20-6.00 [facility] Comment on above: Order Comment: Speci men Type: BLOOD SPECIMEN Performed By: #### 5 8410-2 ####[facility]ORATORYCLIA [id number] [address] WBC (Bld) [#/Vol] 6.66 10*3/uL Normal 3.70-11.00 [facility] Comment on above: Order Comment: Speci men Type: BLOOD SPECIMEN Performed By: #### 5 8410-2 ####[facility]ORATORYCLIA [id number] [address] Guera 02-25-2021 EDWARDN Telephone (AGVASLESLYE) ARNIEKULWANT ([id number]) 1940 M Date Time Provider Department 02/25/21 TODD GREAWL During your visit today, we recorded the [...] [681] Primary Visit Diagnosis:Coronary artery disease involving [place] coronary artery of [place] heart without angina pectoris [I25.10] Order(s):SURGICAL REQUEST - ELECTIVE (12/2019) [6282994] Order #: [id number]: 1 Prescriptions as of 02/25/2021 - famotidine [...] Status:Closed by YONY ARRIAGA on 02/25/21 Normal [facility] Magnesium SerPl-mCncon 02-25 Magnesium [Mass/Vol] 2.1 mg/dL Normal 1.7-2.3 [facility] Comment on above: Order Comment: Speci men Type: BLOOD SPECIMEN Performed By: #### 2 6237-7, 76028-9 ####[facility]ATORYCLIA [id number] [address] NUTRITIONon 02-25-2021 NUTRITION HNO ID: [id number] Author: Kiera Valdez RD Service: Nutrition Therapy Author Type: Registered Dietitian Type: Nutrition Filed: 02/25/2021 2:51 PM Note Text: NUTRITION THERAPY INITIAL ASSESSMENT SERVICE DATE: 02/25/2021 SERVICE TIME: 12:20 Nutrition Assessment: Recommended Malnutrition Diagnosis: No Malnutrition Identified Nutrition Diagnosis: Problem: Increased nutrient needs Related to: Acute illness (upcoming CABG) As evidenced by: Medical condition Estimated kilocalorie needs: 6695-8381 Calorie Calculation Method: 25-30 kcals/kg Estimated protein [...] 25, 2021 TIME: 12:20 PM PAGER: [phone] [facility] PT EDon 02-25-2021 PT ED HNO ID: [id number] Author: Kiera Valdez RD Service: Nutrition Therapy [...] 25, 2021 TIME: 2:51 PM PAGER: [phone] [facility] TYPE AND SCREENon 02-25-2021 ABO O [facility] Comment on above: Order Comment: Speci men Type: BLOOD SPECIMEN Performed By: #### T SCR #### [facility] CLIA [id number] [address] [place] HISTORICAL AB SCR STATUS Negative [facility] Comment on above: Order Comment: Speci men Type: BLOOD SPECIMEN Performed By: #### T SCR #### [facility] CLIA [id number] [address] Rh Nom (Bld) Positive Normal [facility] Comment on above: Order Comment: Speci men Type: BLOOD SPECIMEN Performed By: #### T SCR #### [facility] CLIA [id number] [address] TYPE AND SCREEN EXPIRATION 02/28/2021 23:59 Normal [facility] Comment on above: Order Comment: Speci men Type: BLOOD SPECIMEN Performed By: #### T SCR #### [facility] CLIA [id number] [address] UA WITH CULTURE IF INDICATED on 02-25-2021 Bacteria LM.HPF (Urine sed) [#/Area] None Seen Normal None Seen [facility] Comment on above: Order Comment: Speci men Type: URINE SPECIMEN Performed By: #### U ACII ####[facility]ORATORYCLIA [id number] [address] Bilirubin Ql (U) Detected Abnormal Negative [facility] Comment on above: Order Comment: Speci men Type: URINE SPECIMEN Performed By: #### U ACII ####[facility]ATORYCLIA [id number] [address] Clarity (Unsp spec) Clear Normal Clear [facility] Comment on above: Order Comment: Speci men Type: URINE SPECIMEN Performed By: #### U ACII ####[facility]ORYCLIA [id number] [address] Color (U) Yellow Normal Yellow [facility] Comment on above: Order Comment: Speci men Type: URINE SPECIMEN Performed By: #### U ACII ####[facility]ORYCLIA [id number] [address] Epithelial cells LM.HPF (Urine sed) [#/Area] 0.3 /[HPF] Normal [facility] Comment on above: Order Comment: Speci men Type: URINE SPECIMEN Performed By: #### U ACII ####[facility]ATORYCLIA [id number] [place], [place] [address] [place] [address] Glucose Test strip (U) [Mass/Vol] Negative Normal Negative [facility] Comment on above: Order Comment: Speci men Type: URINE SPECIMEN Performed By: #### U ACII ####[facility]ATORYCLIA [id number] [address] Hemoglobin Ql (U) Negative Normal Negative [facility] Comment on above: Order Comment: Speci men Type: URINE SPECIMEN Performed By: #### U ACII ####[facility]ORYCLIA [id number] [address] Hyaline casts (Urine sed) [#/Area] 0 /[LPF] Normal 0 /LPF [facility] Comment on above: Order Comment: Speci men Type: URINE SPECIMEN Performed By: #### U ACII ####[facility]ORYCLIA [id number] [address] Ketones Ql (U) Negative Normal Negative [facility] Comment on above: Order Comment: Speci men Type: URINE SPECIMEN Performed By: #### U ACII ####[facility]ORYCLIA [id number] [address] Leukocyte esterase Test strip Ql (U) Negative Normal Negative [facility] Comment on above: Order Comment: Speci men Type: URINE SPECIMEN Performed By: #### U ACII ####[facility]ORYCLIA [id number] [address] OF [facility] Nitrite Ql (U) Negative Normal Negative [facility] Comment on above: Order Comment: Speci men Type: URINE SPECIMEN Performed By: #### U ACII ####[facility]ORYCLIA [id number] [address] pH (U) 6.0 [pH] Normal 5.0-8.0 [facility] Comment on above: Order Comment: Speci men Type: URINE SPECIMEN Performed By: #### U ACII ####[facility]ORYCLIA [id number] [address] Protein (U) [Mass/Vol] Negative Normal Negative [facility] Comment on above: Order Comment: Speci men Type: URINE SPECIMEN Performed By: #### U ACII ####[facility]ORYCLIA [id number] [address] RBC LM.HPF (Urine sed) [#/Area] 0-3 /HPF Normal 0-3 /HPF [facility] Comment on above: Order Comment: Speci men Type: URINE SPECIMEN Performed By: #### U ACII ####[facility]ORYCLIA [id number] [address] Specific gravity (U) [Rel density] 1.024 Normal 1.005-1.03 0 [facility] Comment on above: Order Comment: Speci men Type: URINE SPECIMEN Performed By: #### U ACII ####[facility]ORYCLIA [id number] [address] Urobilinogen Ql (U) 1.0 EU/dL Normal 0.2-1.0 EU/dL [facility] Comment on above: Order Comment: Speci men Type: URINE SPECIMEN Performed By: #### U ACII ####[facility]ORYCLIA [id number] [address] WBC LM.HPF (Urine sed) [#/Area] 0-5 /HPF Normal 0-5 /HPF [facility] Comment on above: Order Comment: Speci men Type: URINE SPECIMEN Performed By: #### U ACII ####[facility]ORYCLIA [id number] [address] aPTT PPPon 02-25-2021 aPTT Coag (PPP) [Time] 56.5 s High 23.0-32.4 [facility] Comment on above: Order Comment: Speci men Type: BLOOD SPECIMEN Performed By: #### 1 4979-9 ####[facility]ORYCLIA [id number] [address] [place] Basic metabolic 2000 panelon 02-24-2021 Anion gap [Moles/Vol] 10 mmol/L Normal 9-18 [facility] Comment on above: Order Comment: Speci men Type: BLOOD SPECIMEN Performed By: #### 2 4321-2 ####[facility]ORYCLIA [id number] [address] Calcium [Mass/Vol] 8.9 mg/dL Normal 8.5-10.2 [facility] Comment on above: Order Comment: Speci men Type: BLOOD SPECIMEN Performed By: #### 2 4321-2 ####[facility]ORYCLIA [id number] [address] STATES OF [facility] Chloride [Moles/Vol] 107 mmol/L High 97-105 [facility] Comment on above: Order Comment: Speci men Type: BLOOD SPECIMEN Performed By: #### 2 4321-2 ####[facility]ORYCLIA [id number] [address] [place] CO2 [Moles/Vol] 24 mmol/L Normal 22-30 [facility] Comment on above: Order Comment: Speci men Type: BLOOD SPECIMEN Performed By: #### 2 4321-2 ####[facility]ORYCLIA [id number] [address] [place] Creatinine [Mass/Vol] 1.06 mg/dL Normal 0.73-1.22 [facility] Comment on above: Order Comment: Speci men Type: BLOOD SPECIMEN Performed By: #### 2 4321-2 ####[facility]ORYCLIA [id number] [place] [address] [place] GFR/1.73 sq M.predicted MDRD (S/P/Bld) [Vol rate/Area] mL/min/{1.73_m2} Normal [facility] Comment on above: Order Comment: Speci men [...] actual GFR. Performed By: #### 2 4321-2 ####[facility]ITAL[facility] [id number] [place] [address] [place] Glucose [Mass/Vol] 96 mg/dL Normal 74-99 [facility] Comment on above: Order Comment: Speci men Type: BLOOD SPECIMEN Result Comment: The [place] Diabetes Association (ADA) provides guidance for cutoff [...] Standards of Medical Care in Diabetes 2016, [place] [employer] Association. Diabetes Care. 2016.39(Suppl 1). Performed By: #### 2 4321-2 ####[facility]ORYCLIA [id number] [address] [place] Potassium [Moles/Vol] 4.0 mmol/L Normal 3.7-5.1 [facility] Comment on above: Order Comment: Speci [facility] Type: BLOOD SPECIMEN Performed By: #### 2 4321-2 ####[facility]ORYCLIA [id number] [address] Sodium [Moles/Vol] 141 mmol/L Normal 136-144 [facility] Comment on above: Order Comment: Speci men Type: BLOOD SPECIMEN Performed By: #### 2 4321-2 ####[facility]ORYCLIA [id number] [address] Urea nitrogen [Mass/Vol] 18 mg/dL Normal 9-24 [facility] Comment on above: Order Comment: Speci men Type: BLOOD SPECIMEN Performed By: #### 2 4321-2 ####[facility]ORYCLIA [id number] [address] CBC panel Auto (Bld)on 02-24 Erythrocyte distribution width (RBC) [Ratio] 12.4 % Normal 11.5-15.0 [facility] Comment on above: Order Comment: Speci men Type: BLOOD SPECIMEN Performed By: #### 5 8410-2 ####[facility]ORYCLIA [id number] [address] Hematocrit (Bld) [Volume fraction] 40.2 % Normal 39.0-51.0 [facility] Comment on above: Order Comment: Speci men Type: BLOOD SPECIMEN Performed By: #### 5 8410-2 ####[facility]ORYCLIA [id number] [address] Hemoglobin (Bld) [Mass/Vol] 13.0 g/dL Normal 13.0-17.0 [facility] Comment on above: Order Comment: Speci men Type: BLOOD SPECIMEN Performed By: #### 5 8410-2 ####[facility]ORYCLIA [id number] [address] MCH (RBC) [Entitic mass] 30.7 pg Normal 26.0-34.0 [facility] Comment on above: Order Comment: Speci men Type: BLOOD SPECIMEN Performed By: #### 5 8410-2 ####[facility]ORYCLIA [id number] [address] MCHC (RBC) [Mass/Vol] 32.3 g/dL Normal 30.5-36.0 [facility] Comment on above: Order Comment: Speci men Type: BLOOD SPECIMEN Performed By: #### 5 8410-2 ####[facility]ORYCLIA [id number] [address] MCV (RBC) [Entitic vol] 94.8 fL Normal 80.0-100.0 [facility] Comment on above: Order Comment: Speci men Type: BLOOD SPECIMEN Performed By: #### 5 8410-2 ####[facility]ORYCLIA [id number] [address] Nucleated RBC (Bld) [#/Vol] 10*3/uL Normal <0.01 [facility] Comment on above: Order Comment: Speci men Type: BLOOD SPECIMEN Performed By: #### 5 8410-2 ####[facility]ORYCLIA [id number] [address] Platelet mean volume (Bld) [Entitic vol] 9.7 fL Normal 9.0-12.7 [facility] Comment on above: Order Comment: Speci men Type: BLOOD SPECIMEN Performed By: #### 5 8410-2 ####[facility]ORYCLIA [id number] [address] Platelets (Bld) [#/Vol] 243 10*3/uL Normal 150-400 [facility] Comment on above: Order Comment: Speci men Type: BLOOD SPECIMEN Performed By: #### 5 8410-2 ####[facility]ORYCLIA [id number] [address] RBC (Bld) [#/Vol] 4.24 10*6/uL Normal 4.20-6.00 [facility] Comment on above: Order Comment: Speci men Type: BLOOD SPECIMEN Performed By: #### 5 8410-2 ####[facility]ORYCLIA [id number] [place] [address] [place] [facility] WBC (Bld) [#/Vol] 5.65 10*3/uL Normal 3.70-11.00 [facility] Comment on above: Order Comment: Speci men Type: BLOOD SPECIMEN Performed By: #### 5 8410-2 ####[facility]ORYCLIA [id number] [place] [address] [facility] CONSULTon 02-24-2021 CONSULT HNO ID: [id number] Author: Todd Grewal MD Service: Cardiac Surgery Author Type: Physician Type: Consults Filed: 02/25/2021 3:31 PM Note Text: CARDIOTHORACIC SURGERY CONSULT / HANDP SERVICE DATE: 02/24/2021 SERVICE TIME: 242 Subjective PRIMARY SERVICE: Cardiothoracic Surgery CHIEF COMPLAINT: Symptomatic severe multivessel coronary disease HPI: This is a 80 year old man transferred from [facility] after left heart catheterization for evaluation [...] Is undergone some sort of ablation at [facility] in the remote past but [...] PHYSICAL EXAM: (more content not included)... 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 Copy left in patient chart. Normal [facility] aPTT PPPon 02-24-2021 aPTT Coag (PPP) [Time] 57.3 s High 23.0-32.4 [facility] Comment on above: Order Comment: Speci men Type: BLOOD SPECIMEN Performed By: #### 1 4979-9 ####[facility]ORYCLIA [id number] [address] aPTT Coag (PPP) [Time] 63.5 s High 23.0-32.4 [facility] Comment on above: Order Comment: Speci men Type: BLOOD SPECIMEN Performed By: #### 1 4979-9 ####[facility]ORYCLIA [id number] [address] aPTT Coag (PPP) [Time] 72.3 s High 23.0-32.4 [facility] Comment on above: Order Comment: Speci men Type: BLOOD SPECIMEN Performed By: #### 1 4979-9 ####[facility]ORYCLIA [id number] [address] CBC W Auto Differential pane l (Bld)on 02-23-2021 Basophils (Bld) [#/Vol] 0.04 10*3/uL Normal <0.11 [facility] Comment on above: Order Comment: Speci men Type: BLOOD SPECIMEN Performed By: #### 5 7021-8 ####[facility]ORYCLIA [id number] [address] Basophils/100 WBC (Bld) 0.6 % Normal [facility] Comment on above: Order Comment: Speci men Type: BLOOD SPECIMEN Performed By: #### 5 7021-8 ####[facility]ORYCLIA [id number] [address] Differential cell count method Nom (Bld) Auto Normal [facility] Comment on above: Order Comment: Speci men Type: BLOOD SPECIMEN Performed By: #### 5 7021-8 ####[facility]ORYCLIA [id number] [address] STATES OF [facility] Eosinophils (Bld) [#/Vol] 0.08 10*3/uL Normal <0.46 [facility] Comment on above: Order Comment: Speci men Type: BLOOD SPECIMEN Performed By: #### 5 7021-8 ####[facility]ORYCLIA [id number] [address] Eosinophils/100 WBC (Bld) 1.2 % Normal [facility] Comment on above: Order Comment: Speci men Type: BLOOD SPECIMEN Performed By: #### 5 7021-8 ####[facility]ORYCLIA [id number] [address] Erythrocyte distribution width (RBC) [Ratio] 12.3 % Normal 11.5-15.0 [facility] Comment on above: Order Comment: Speci men Type: BLOOD SPECIMEN Performed By: #### 5 7021-8 ####[facility]ORYCLIA [id number] [address] Hematocrit (Bld) [Volume fraction] 40.1 % Normal 39.0-51.0 [facility] Comment on above: Order Comment: Speci men Type: BLOOD SPECIMEN Performed By: #### 5 7021-8 ####[facility]ORYCLIA [id number] [address] Hemoglobin (Bld) [Mass/Vol] 13.3 g/dL Normal 13.0-17.0 [facility] Comment on above: Order Comment: Speci men Type: BLOOD SPECIMEN Performed By: #### 5 7021-8 ####[facility]ORYCLIA [id number] [address] IMMATURE GRAN % 0.3 % Normal [facility] Comment on above: Order Comment: Speci men Type: BLOOD SPECIMEN Performed By: #### 5 7021-8 ####[facility]ORYCLIA [id number] [address] IMMATURE GRAN ABS <0.03 Normal <0.10 [facility] Comment on above: Order Comment: Speci men Type: BLOOD SPECIMEN Performed By: #### 5 7021-8 ####[facility]ORYCLIA [id number] [address] Lymphocytes (Bld) [#/Vol] 1.05 10*3/uL Normal 1.00-4.00 [facility] Comment on above: Order Comment: Speci men Type: BLOOD SPECIMEN Performed By: #### 5 7021-8 ####[facility]ORYCLIA [id number] [address] Lymphocytes/100 WBC (Bld) 15.2 % Normal [facility] Comment on above: Order Comment: Speci men Type: BLOOD SPECIMEN Performed By: #### 5 7021-8 ####[facility]ORYCLIA [id number] [address] MCH (RBC) [Entitic mass] 31.5 pg Normal 26.0-34.0 [facility] Comment on above: Order Comment: Speci men Type: BLOOD SPECIMEN Performed By: #### 5 7021-8 ####[facility]ORYCLIA [id number] [address] MCHC (RBC) [Mass/Vol] 33.2 g/dL Normal 30.5-36.0 [facility] Comment on above: Order Comment: Speci men Type: BLOOD SPECIMEN Performed By: #### 5 7021-8 ####[facility]ORYCLIA [id number] [address] MCV (RBC) [Entitic vol] 95.0 fL Normal 80.0-100.0 [facility] Comment on above: Order Comment: Speci men Type: BLOOD SPECIMEN Performed By: #### 5 7021-8 ####[facility]ORYCLIA [id number] [address] Monocytes (Bld) [#/Vol] 0.58 10*3/uL Normal <0.87 [facility] Comment on above: Order Comment: Speci men Type: BLOOD SPECIMEN Performed By: #### 5 7021-8 ####[facility]ORYCLIA [id number] [address] Monocytes/100 WBC (Bld) 8.4 % Normal [facility] Comment on above: Order Comment: Speci men Type: BLOOD SPECIMEN Performed By: #### 5 7021-8 ####[facility]ORYCLIA [id number] [address] Neutrophils (Bld) [#/Vol] 5.16 10*3/uL Normal 1.45-7.50 [facility] Comment on above: Order Comment: Speci men Type: BLOOD SPECIMEN Performed By: #### 5 7021-8 ####[facility]ORYCLIA [id number] [address] Neutrophils/100 WBC (Bld) 74.3 % Normal [facility] Comment on above: Order Comment: Speci men Type: BLOOD SPECIMEN Performed By: #### 5 7021-8 ####[facility]ORYCLIA [id number] [address] Nucleated RBC (Bld) [#/Vol] 10*3/uL Normal <0.01 [facility] Comment on above: Order Comment: Speci men Type: BLOOD SPECIMEN Performed By: #### 5 7021-8 ####[facility]ORYCLIA [id number] [address] Nucleated RBC/100 WBC (Bld) [Ratio] 0.0 /100 WBC Normal 0.0 [facility] Comment on above: Order Comment: Speci men Type: BLOOD SPECIMEN Performed By: #### 5 7021-8 ####[facility]ORYCLIA [id number] [address] Platelet mean volume (Bld) [Entitic vol] 9.6 fL Normal 9.0-12.7 [facility] Comment on above: Order Comment: Speci men Type: BLOOD SPECIMEN Performed By: #### 5 7021-8 ####[facility]ORYCLIA [id number] [address] OF [facility] Platelets (Bld) [#/Vol] 245 10*3/uL Normal 150-400 [facility] Comment on above: Order Comment: Speci men Type: BLOOD SPECIMEN Performed By: #### 5 7021-8 ####[facility]CLIA [id number] [address] RBC (Bld) [#/Vol] 4.22 10*6/uL Normal 4.20-6.00 [facility] Comment on above: Order Comment: Speci men Type: BLOOD SPECIMEN Performed By: #### 5 7021-8 ####[facility]CLIA [id number] [address] WBC (Bld) [#/Vol] 6.93 10*3/uL Normal 3.70-11.00 [facility] Comment on above: Order Comment: Speci men Type: BLOOD SPECIMEN Performed By: #### 5 7021-8 ####[facility]ORYCLIA [id number] [address] CBC panel Auto (Bld)on 02-23 Erythrocyte distribution width (RBC) [Ratio] 12.2 % Normal 11.5-15.0 [facility] Comment on above: Order Comment: Speci men Type: BLOOD SPECIMEN Performed By: #### 5 8410-2 ####[facility]ORYCLIA [id number] [address] Hematocrit (Bld) [Volume fraction] 39.4 % Normal 39.0-51.0 [facility] Comment on above: Order Comment: Speci men Type: BLOOD SPECIMEN Performed By: #### 5 8410-2 ####[facility]ORYCLIA [id number] [address] Hemoglobin (Bld) [Mass/Vol] 13.0 g/dL Normal 13.0-17.0 [facility] Comment on above: Order Comment: Speci men Type: BLOOD SPECIMEN Performed By: #### 5 8410-2 ####[facility]ORYCLIA [id number] [address] MCH (RBC) [Entitic mass] 31.0 pg Normal 26.0-34.0 [facility] Comment on above: Order Comment: Speci men Type: BLOOD SPECIMEN Performed By: #### 5 8410-2 ####[facility]ORYCLIA [id number] [address] MCHC (RBC) [Mass/Vol] 33.0 g/dL Normal 30.5-36.0 [facility] Comment on above: Order Comment: Speci men Type: BLOOD SPECIMEN Performed By: #### 5 8410-2 ####[facility]ORYCLIA [id number] [address] MCV (RBC) [Entitic vol] 94.0 fL Normal 80.0-100.0 [facility] Comment on above: Order Comment: Speci men Type: BLOOD SPECIMEN Performed By: #### 5 8410-2 ####[facility]ORYCLIA [id number] [address] Nucleated RBC (Bld) [#/Vol] 10*3/uL Normal <0.01 [facility] Comment on above: Order Comment: Speci men Type: BLOOD SPECIMEN Performed By: #### 5 8410-2 ####[facility]ORYCLIA [id number] [address] Platelet mean volume (Bld) [Entitic vol] 9.7 fL Normal 9.0-12.7 [facility] Comment on above: Order Comment: Speci men Type: BLOOD SPECIMEN Performed By: #### 5 8410-2 ####[facility]ORYCLIA [id number] [address] Platelets (Bld) [#/Vol] 233 10*3/uL Normal 150-400 [facility] Comment on above: Order Comment: Speci men Type: BLOOD SPECIMEN Performed By: #### 5 8410-2 ####[facility]ORYCLIA [id number] [address] RBC (Bld) [#/Vol] 4.19 10*6/uL Low 4.20-6.00 [facility] Comment on above: Order Comment: Speci men Type: BLOOD SPECIMEN Performed By: #### 5 8410-2 ####[facility]ORYCLIA [id number] [address] WBC (Bld) [#/Vol] 6.29 10*3/uL Normal 3.70-11.00 [facility] Comment on above: Order Comment: Speci men Type: BLOOD SPECIMEN Performed By: #### 5 8410-2 ####[facility]ORYCLIA [id number] [place] [address] [place] CONSULTon 02-23-2021 CONSULT HNO ID: [id number] Author: Bindu Sheehan PA-C Service: Cardiovascular Surgery Author Type: Physician Eyewear Consultant Type: Consults Filed: 02/23/2021 9:08 AM Note [...] and subsequently ended up [facility] days in 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 He did follow up with the [employer] covid vaccination. He states ever since that [...] 02/22. He did undergo cardiac cath in [place] (Dr. Michelle), with results as follow: ? Elevated LVED pressure Normal LV size, wall motion, and systolic function LVEF 55% Elem multivessel CAD Collateral flow left to right [...] the perioperative course: - CAD of the [place] vessel. Stable with no angina at rest [...] tablet, Ta (more content not included)... Normal [facility] CONSULT HNO ID: [id number] Author: Rober Hoffmann MD Service: Cardiovascular Disease [...] dyspnea in the recent past. No prior MT. Physsically active. 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 Non smoker non diabetic , H/o Htn > 20 yrs. 1. Coronary artery disease of [place] artery of [place] heart with stable angina pectoris (HCC) - [...] 3.090 10/02/2020 (more content not included)... Normal [facility] CT CHEST WO IVCONon 02-24-20 CT CHEST WO IVCON * * *Final Report* * * DATE OF EXAM: Feb 23 2021 10:17AM [facility] 0541 - CT CHEST WO IVCON / [...] and renal pelvis, likely from recent catheterization. Recruitment Advertising Manager (topogram) images: No additional findings. IMPRESSION: 1. [...] an addendum can be performed if requested.-- Bag Machine Set Up Operator: JABARI Transcribe Date/Time: Feb 25 2021 8:13A Dictated by : JAYME SHRESTHA MD This examination was interpreted and the report reviewed and electronically signed by: JAYME SHRESTHA MD on Feb 25 2021 8:27AM EST [id number] Normal [facility] Comprehensive metabolic 2000 panelon 02-23-2021 Albumin [Mass/Vol] 3.9 g/dL Normal 3.9-4.9 [facility] Comment on above: Order Comment: Speci men Type: BLOOD SPECIMEN Performed By: #### 1 9123-9, 3016-3, 63593-6, LIPB ####[facility]ORYCLIA [id number] [address] ALP [Catalytic activity/Vol] 62 U/L Normal 38-113 [facility] Comment on above: Order Comment: Speci men Type: BLOOD SPECIMEN Performed By: #### 1 9123-9, 3016-3, 69615-7, LIPB ####[facility]ORYCLIA [id number] [address] STATES OF [facility] ALT With P-5'-P [Catalytic activity/Vol] 9 U/L Low 10-54 [facility] Comment on above: Order Comment: Speci men Type: BLOOD SPECIMEN Performed By: #### 1 9123-9, 3016-3, 10460-7, LIPB ####[facility]ORYCLIA [id number] [address] OF [facility] Anion gap [Moles/Vol] 11 mmol/L Normal 9-18 [facility] Comment on above: Order Comment: Speci men Type: BLOOD SPECIMEN Performed By: #### 1 9123-9, 3016-3, 92642-8, LIPB ####[facility]ORYCLIA [id number] [address] OF [facility] AST With P-5'-P [Catalytic activity/Vol] 12 U/L Low 14-40 [facility] Comment on above: Order Comment: Speci men Type: BLOOD SPECIMEN Performed By: #### 1 23-9, 3016-3, 83244-8, LIPB ####[facility]ORYCLIA [id number] [place], [place] [address] [place] [address] [place] Bilirubin [Mass/Vol] 0.8 mg/dL Normal 0.2-1.3 [facility] Comment on above: Order Comment: Speci men Type: BLOOD SPECIMEN Performed By: #### 1 23-9, 3016-3, 36149-7, LIPB ####[facility]ORYCLIA [id number] [place], [place] [address] [place] [address] [place] Calcium [Mass/Vol] 8.9 mg/dL Normal 8.5-10.2 [facility] Comment on above: Order Comment: Speci men Type: BLOOD SPECIMEN Performed By: #### 1 9122-9, 6-3, 72525-6, LIPB ####[facility]ORYCLIA [id number] [address] [place] Chloride [Moles/Vol] 107 mmol/L High 97-105 [facility] Comment on above: Order Comment: Speci men Type: BLOOD SPECIMEN Performed By: #### 1 9122-9, 6-3, 84646-9, LIPB ####[facility]ORYCLIA [id number] [place], [place] [address] [place] [address] [place] CO2 [Moles/Vol] 24 mmol/L Normal 22-30 [facility] Comment on above: Order Comment: Speci men Type: BLOOD SPECIMEN Performed By: #### 1 23-9, 6-3, 42763-4, LIPB ####[facility]ORYCLIA [id number] [place] [address] [place] Creatinine [Mass/Vol] 1.02 mg/dL Normal 0.73-1.22 [facility] Comment on above: Order Comment: Speci men Type: BLOOD SPECIMEN Performed By: #### 1 23-9, 3016-3, 34726-5, LIPB ####[facility]ORYCLIA [id number] [place] [address] [place] GFR/1.73 sq M.predicted MDRD (S/P/Bld) [Vol rate/Area] mL/min/{1.73_m2} Normal [facility] Comment on above: Order Comment: Speci men [...] GFR. Performed By: #### 1 9123-9, 3016-3, 97229-0, LIPB ####[facility]ORYCLIA [id number] [place] [id number] [place] Glucose [Mass/Vol] 96 mg/dL Normal 74-99 [facility] Comment on above: Order Comment: Speci men Type: BLOOD SPECIMEN Result Comment: The [place] Diabetes Association (ADA) provides guidance for cutoff [...] Standards of Medical Care in Diabetes 2016, [place] [employer]. Diabetes Care. 2016.39(Suppl 1). Performed By: #### 1 9123-9, 3016-3, 53673-9, LIPB ####[facility]ORYCLIA [id number] [place] [address] [place] Potassium [Moles/Vol] 3.9 mmol/L Normal 3.7-5.1 [facility] Comment on above: Order Comment: Speci men Type: BLOOD SPECIMEN Performed By: #### 1 9123-9, 3016-3, 06016-1, LIPB ####[facility]ORYCLIA [id number] [place], [place] [address] [place] [address] STATES OF [facility] Protein [Mass/Vol] 6.2 g/dL Low 6.3-8.0 [facility] Comment on above: Order Comment: Speci men Type: BLOOD SPECIMEN Performed By: #### 1 9123-9, 3016-3, 42973-5, LIPB ####[facility]ORYCLIA [id number] [address] STATES OF [facility] Sodium [Moles/Vol] 142 mmol/L Normal 136-144 [facility] Comment on above: Order Comment: Speci men Type: BLOOD SPECIMEN Performed By: #### 1 9123-9, 3016-3, 21147-3, LIPB ####[facility]ORYCLIA [id number] [address] STATES OF [facility] Urea nitrogen [Mass/Vol] 17 mg/dL Normal 9-24 [facility] Comment on above: Order Comment: Speci men Type: BLOOD SPECIMEN Performed By: #### 1 9123-9, 3016-3, 14397-2, LIPB ####[facility]ORYCLIA [id number] [address] [place] HGB A1Con 02-23-2021 Average glucose Estimated from glycated hemoglobin (Bld) [Mass/Vol] 105 mg/dL Normal [facility] Comment on above: Order Comment: Speci men Type: BLOOD SPECIMEN Result Comment: eAG: (Estimated average glucose) is a calculated value from HgbA1c and is area representative of the average blood glucose level in the last 2-3 month period. Performed By: #### H BA1C ####[facility]ORYCLIA [id number] [address] [place] HbA1c (Bld) [Mass fraction] 5.3 % Normal 4.3-5.6 [facility] Comment on above: Order Comment: Speci men Type: BLOOD SPECIMEN Performed By: #### H BA1C ####[facility]ORYCLIA [id number] [address] HIGH SENSITIVITY TROPONIN To n 02-23-2021 HIGH SENSITIVITY KELLY 22 ng/L High <12 [facility] Comment on above: Order Comment: [...] day MACE. Performed By: #### H STNT ####[facility]ORYCLIA [id number] [address] HIGH SENSITIVITY KELLY 19 ng/L High <12 [facility] Comment on above: Order Comment: [facility] Type: BLOOD SPECIMEN Result Comment: When assessing [...] day MACE. Performed By: #### H STNT ####[facility]ORYCLIA [id number] [address] HISTORY PHYSICALon HISTORY PHYSICAL HNO ID: [id number] Author: Manpreet Lawson MD Service: General Internal Medicine Author Type: Physician Type: HANDP Filed: 02/23/2021 7:57 AM Note Text: DEPARTMENT OF HOSPITAL MEDICINE HISTORY AND PHYSICAL EXAM SERVICE DATE: 02/23/2021 SERVICE TIME: 6:37 AM Primary Care Physician: Javi Bates MD NIGHT AND WEEKEND COVERAGE: From 7am - 7pm, please call Sound After 7pm, please call cross cover pager #[phone] Subjective CHIEF COMPLAINT: SOB/AWAN Completed Covid vaccines [...] 02/22. He did undergo cardiac cath in [place] (Dr. Michelle), with results as follow: Elevated LVED pressure Normal LV size, wall motion, and systolic function LVEF 55% Elem multivessel CAD Collateral flow left to right [...] the last (more content not included)... Normal [facility] LIPID PANEL BASICon 02-24-20 21 Cholesterol [Mass/Vol] 256 mg/dL High <200 [facility] Comment on above: Order Comment: Speci men Type: BLOOD SPECIMEN Result Comment: <200 mg/dL, Desirable 200-239 mg/dL, Borderline high >239 mg/dL, High Performed By: #### 1 9123-9, 3016-3, 15747-0, LIPB ####[facility]ORYCLIA [id number] [address] OF [facility] Cholesterol in HDL [Mass/Vol] 42 mg/dL Normal >39 [facility] Comment on above: Order Comment: Speci men Type: BLOOD SPECIMEN Result Comment: 40-5 9 mg/dL, Acceptable >59 mg/dL, High: Negative risk factor for coronary heart disease <40 mg/dL, Low: Positive risk factor for coronary heart disease Performed By: #### 1 9123-9, 6-3, 68426-4, LIPB ####[facility]ORYCLIA [id number] [address] [place] OF [facility] Cholesterol in LDL [Mass/Vol] 176 mg/dL High <100 [facility] Comment on above: Order Comment: Spec men Type: BLOOD SPECIMEN Result Comment: <100 mg/dL, Optimal 100-129 mg/dL, Near optimal/above optimal 130-159 mg/dL, Borderline high 160-189 mg/dL, High >189 mg/dL, Very high Secondary prevention optimal LDL Cholesterol levels are recommended to be < 70 mg/dL Performed By: #### 1 9123-9, 3016-3, 13558-3, LIPB ####[facility]ORATORYCLIA [id number] [address] OF [facility] Cholesterol in LDL/Cholesterol in HDL [Mass ratio] 4.19 {ratio} High <2.54 [facility] Comment on above: Order Comment: Speci men Type: BLOOD SPECIMEN Result Comment: Loc enriquez: 1. National Cholesterol Education Program ATP III Guideline At-A-Glance Quick Desk Reference: National Heart, Lung, and Blood [place]. National Institutes of Health. 2001: NIH Publication No. 01-3305. 2. An International Atherosclerosis Society position paper: global recommendations for the management of dyslipidemia: executive summary, Atherosclerosis. 2014: 232(2):410-413. Performed By: #### 1 9123-9, 3016-3, 63304-3, LIPB ####[facility]ATORYCLIA [id number] [address] [facility] Cholesterol in VLDL [Mass/Vol] 38 mg/dL High <30 [facility] Comment on above: Order Comment: Speci men Type: BLOOD SPECIMEN Performed By: #### 1 9123-9, 3016-3, 56501-5, LIPB ####[facility]ORATORYCLIA [id number] [address] [place] Cholesterol non HDL [Mass/Vol] 214 mg/dL High <130 [facility] Comment on above: Order Comment: Speci men Type: BLOOD SPECIMEN Result Comment: <130 mg/dL, Optimal 130-159 mg/dL, Near optimal/above optimal 160-189 mg/dL, Borderline high 190-219 mg/dL, High >219 mg/dL, Very high Secondary prevention optimal non HDL Cholesterol levels are recommended to be <100 mg/dL Performed By: #### 1 9123-9, 3016-3, 21972-5, LIPB ####[facility]ATORYCLIA [id number] [address] Cholesterol.total/Brenda sterol in HDL [Mass ratio] 6.10 {ratio} High <5.10 [facility] Comment on above: Order Comment: Speci men Type: BLOOD SPECIMEN Performed By: #### 1 9123-9, 3016-3, 62594-3, LIPB ####[facility]ORATORYCLIA [id number] [address] STATES OF [facility] FASTING TIME 0 hrs Normal [facility] Comment on above: Order Comment: Speci men Type: BLOOD SPECIMEN Performed By: #### 1 9123-9, 3015-3, 55430-5, LIPB ####[facility]ORATORYCLIA [id number] [address] STATES OF [facility] Triglyceride [Mass/Vol] 191 mg/dL High <150 [facility] Comment on above: Order Comment: Speci men Type: BLOOD SPECIMEN Result Comment: <150 mg/dL, Normal 150-199 mg/dL, Borderline high 200-499 mg/dL, High >499 mg/dL, Very high Performed By: #### 1 9123-9, 3015-3, , LIPB ####[facility]ORATORYCLIA [id number] [address] [place] Magnesium SerPl-mCncon 02-23 Magnesium [Mass/Vol] 2.0 mg/dL Normal 1.7-2.3 [facility] Comment on above: Order Comment: Speci men Type: BLOOD SPECIMEN Performed By: #### 1 9123-9, 3015-3, , LIPB ####[facility]ATORYCLIA [id number] [address] STATES OF [facility] PT panel Coag (PPP)on 2020 INR Coag (PPP) [Relative time] 1.0 {INR} Normal 0.9-1.3 [facility] Comment on above: Order Comment: Speci men Type: BLOOD SPECIMEN Result Comment: Maya min K Antagonist (VKA) Therapeutic Range: INR 2 to 3 (Target INR of 2.5) Note: For patients treated with VKA drugs, such as warfarin, the [place] [employer] 2012 Guideline recommends [...] Chest 2012, 141:7S-47S Renny BULLOCK et al. [facility] 2017, 70: 252-289 Performed By: #### 3 4528-0, 24559-0 ####[facility]ORATORYCLIA [id number] [address] [place] PT Coag (PPP) [Time] 10.7 s Normal 9.7-13.0 [facility] Comment on above: Order Comment: Speci men Type: BLOOD SPECIMEN Performed By: #### 3 4528-0, 72765-2 ####[facility]ORATORYCLIA [id number] [address] OF [facility] SARS-CoV-2 RNA Resp Ql [place]+p robeon 02-23-2021 SARS-CoV-2 (COVID-19) RNA [place]+probe Ql (Resp) COVID 19 RESULT: SARS-CoV-2 (Agent of COVID-19) Not Detected by PCR. This test has been authorized by FDA under an Emergency Use Authorization (EUA) Normal [facility] Comment on above: Performed By: #### 9 4500-6 ####[facility]ORATORYCLIA [id number] [address] STAPH AUREUS PCRon S. aureus and MRSA panel [place]+probe (Nose) Normal Negative [facility] Comment on above: Order Comment: Speci men Type: BLOOD SPECIMEN Result Comment: Nega tive for Staphylococcus aureus by PCR. Negative for MRSA by PCR Performed By: #### T SCR #### [facility] CLIA [id number] [place] TSH SerPl-aCncon 02-23-2021 TSH Qn 3.380 m[IU]/L Normal 0.270-4.20 0 [facility] Comment on above: Order Comment: Speci men Type: BLOOD SPECIMEN Performed By: #### 1 9123-9, 3016-3, 06169-7, LIPB ####[facility]ATORYCLIA [id number] [address] aPTT PPPon 02-23-2021 aPTT Coag (PPP) [Time] 48.4 s High 23.0-32.4 [facility] Comment on above: Order Comment: Speci men Type: BLOOD SPECIMEN Performed By: #### 1 4979-9 ####[facility]ORATORYCLIA [id number] [address] aPTT Coag (PPP) [Time] 55.0 s High 23.0-32.4 [facility] Comment on above: Order Comment: Speci men Type: BLOOD SPECIMEN Performed By: #### 3 4528-0, 87299-2 ####[facility] LABORATORYCLIA [id number] [address] CNPMeredith 12-07-2020 [facility] ([facility] KULWANT ANDRADE ([id number]) 1940 Date Time Provider Department 12/07/20 [facility] During your visit today, we recorded the following information about you: Javi Bates MD 12/07/2020 12:44 PM Signed Let patient know all labs for myasthenia gravis testing were negative. Caitlin Abrams Ma 12/07/2020 1:43 PM Signed Patient was notified Caitlin Abrams Ma Allergies As of Date: 12/07/2020 Noted Allergy Reaction ERYTHROMYCIN 04/15/2005 4 - Hives Date Reviewed: 11/12/2020 Reviewed by: Sofiya Zanick, SAND HAULER.RUBBER CHEMIST - Fully Assessed Reason for Visit: Results [...] by CAITLIN ABRAMS MA on 12/07/[address] [facility] Actylcholine Bindingon 11-22 Acetylcholin Rec/Bin <0.02 Normal <0.21 [facility] Comment on above: Performed By: #### A CHRAB, WSR, CRP ####[facility] [address] [place], [place] [phone]#### MUSK #### [address] [phone] Actylcholine Bind Ql Negative Normal Negative [facility] Comment on above: Performed By: #### A CHRAB, WSR, CRP ####[facility] [place], [place] [phone]#### MUSK #### [facility] [place], [place] [phone] C-Reactive Proteinon 021 C-Reactive Protein 28.8 mg/dL High <0.9 [facility] Comment on above: Performed By: #### A CHRAB, WSR, CRP ####[facility] [place], [place] [phone]#### MUSK #### [facility] [place], [place] [phone] LRP4 Autoab Teston 1 LRP4 Auto Ab (NOTE) Normal [facility] Comment on above: Result Comment: INTE RPRETATION NEGATIVE This test did not detect abnormal levels of anti-LRP4 antibodies. TECHNICAL RESULTS -------- Interpretive Result Table -------- INTERPRETIVE RESULT: Negative TEST: anti-LRP4 TECHNICAL RESULT: Negative REFERENCE RANGE: Negative -------- -------- COMMENTS This result does not exclude a diagnosis of Myasthenia Gravis. Recommendations: Health care providers, please contact the [employer] Client Services Department at if you wish to speak with a clinical ux consultant regarding this test result. Other testing available: [employer] recommends additional testing, if not already performed, and currently offers the following test: MuSK Antibody Test. Please contact the [employer] Client Services Department or visit [employer] for information regarding additional testing that may [...] et al. (2010) BMC Neurol 2010;10:46. (PMID: 67698792) 2. Robert Patel et al. (2013) J Autoimmun 52: 139. (PMID: 49453411) 3. Jayson A, et al. (2013) Autoimmun Rev 12: 931-5. (PMID: 75941424) 4. Helder HANNA et al. (2015) Biochim Biophys Acta 1852(4): 651-7. (PMID: 94092572) This test was developed and its analytical performance characteristics have been determined by [employer] It has not been cleared or approved by the U.S. Food and Drug Administration. This assay has been validated pursuant to the CLIA regulations and is used for clinical purposes. Laboratory oversight provided by Nellie Forte M.D., Ph.D., CLIA license [place], [employer] (CLIA# [id number]) Testing performed at: [employer] [address] [place] [address] Performed By: #### A CHR, WSR, CRP ####[place] [address] [place], [place] [phone]#### MUSK #### [address] [phone] MuSK Antibody Teston 021 MuSK Antibody 0.00 nmol/L Normal 0.00-0.[address] [facility] Comment on above: Result Comment: (NOT E) A negative result does not exclude the diagnosis of autoimmune myasthenia gravis. Testing for acetylcholine receptor binding and modulating antibodies, and striational antibody should be considered. ADDITIONAL INFORMATION This test was developed using an analyte specific reagent. Its performance characteristics were determined by [facility] in a manner consistent with CLIA requirements. This test has not been cleared or approved by the U.S. Food and Drug Administration. Performed By: #### A CHRAB, WSR, CRP ####[place] [address] [place], [place] [phone]#### MUSK #### [address] [place] [phone] Sed Rate Westergrenon 2020 Sed Rate Westergren 93 mm/hr High 0-15 [facility] Comment on above: Performed By: #### A CHRAB, WSR, CRP ####[facility] [address] [place], [place] [phone]#### MUSK #### [facility] [place], [place] [phone] CNPMeredith 11-21-2020 CNPN Telephone (NEPHST) KULWANT ANDRADE ([id number]) 1940 M Date Time Provider Department 11/21/20 [...] 158/94 11/19/20 was 174/98. Please advise at [phone]. Dayan Barrett MA 11/21/2020 2:20 PM Signed spoke with patient Allergies As of Date: 11/21/2020 Noted Allergy Reaction ERYTHROMYCIN 04/15/2005 4 - Hives Date Reviewed: 11/12/2020 Reviewed by: Sofiya Song APRN.RUBBER CHEMIST - Fully Assessed Reason for Visit: Elevated [...] by DAYAN BARRETT MA on 11/21/[address] [facility] US KIDNEY/BLADDERon 11-22-19 KIDNEY/BLADDER * * [...] right renal calculus. Multiple left renal cyst. Bag Machine Set Up Operator: JABARI Transcribe Date/Time: Nov 21 2020 2:32P Dictated by : DUKE SAAVEDRA MD This examination was interpreted and the report reviewed and electronically signed by: DUKE SAAVEDRA MD on Nov 21 2020 2:35PM EST [id number] [facility] ([employer]) KULWANT ANDRADE ([id number]) 1940 M Date Time Provider Department 11/20/20 JAVI BATES [facility] During your visit today, we recorded the [...] heart catheterization on 12/11. When patient visited bonding machine tender Sofiya Song on 11/12/2020 he was take [...] Date Reviewed: 11/12/2020 Reviewed by: Sofiya Song APRN.RUBBER CHEMIST - Fully Assessed Reason for Visit: Patient Update [1234] Primary Visit Diagnosis:ESRD (end stage renal disease) on dialysis (HCC) [N18.6, Z99.2] Other Visit Diagnoses:Elevated sed rate [R70.0] CRP elevated [R79.82] Muscle weakness [M62.81] Order(s):C-REACTIVE PROTEIN (CRP) [SQCRP] Order #: [id number] FUTURE SED RATE WESTERGREN [SQWSR] Order #: [id number] FUTURE MUSK ANTIBODY TEST [SQMUSK] Order #: [id number] FUTURE ACETYLCHOLINE REC BINDING AB [SQACHRAB] Order #: [id number] FUTURE LRP4 AUTOANTIBODY TEST [CBMPF6PP] Order #: [id number] FUTURE Prescriptions as of 11/20/2020 Sig: TYLENOL [...] Status:Closed by JAVI BATES on 11/23/[address] [facility] CBC and Differentialon 11-12 Abs Baso <0.03 Normal <0.[address] [facility] Comment on above: Performed By: #### V ITD, SERMPA, PTHI, RFP ####[facility] [address] [place], [place] [phone] Abs Eosin <0.03 Normal <0.[address] [facility] Comment on above: Performed By: #### V ITD, SERMPA, PTHI, RFP ####[place] [address] [address] Ave[address] [place] [phone] Abs Traill 0.30 k/uL Normal <0.[address] [facility] Comment on above: Performed By: #### V ITD, SERMPA, PTHI, RFP ####[address] [place] [phone] Abs Neut 10.80 k/uL High 1.45-7.[address] [facility] Comment on above: Performed By: #### V ITD, SERMPA, PTHI, RFP ####[place] [address] [place] [phone] Absolute nRBC <0.01 Normal <0.[address] [facility] Comment on above: Performed By: #### V ITD, SERMPA, PTHI, RFP ####[place] [address] [phone] Basophils/100 WBC (Bld) 0.1 % Normal C [facility] Comment on above: Performed By: #### V ITD, SERMPA, PTHI, RFP ####[address] [place] [phone] DTYPE Auto Diff Normal [facility] Comment on above: Performed By: #### V ITD, SERMPA, PTHI, RFP ####[address] [place] [phone] Eosinophils/100 WBC (Bld) 0.0 % Normal [facility] Comment on above: Performed By: #### V ITD, SERMPA, PTHI, RFP ####[address] [place] [phone] Erythrocyte distribution width (RBC) [Ratio] 13.2 % Normal 11.5-15.[address] [facility] Comment on above: Performed By: #### V ITD, SERMPA, PTHI, RFP ####[place] [address] [address] [place] Av[place], [place] [phone] Hematocrit (Bld) [Volume fraction] 38.5 % Low 39.0-51.[address] [facility] Comment on above: Performed By: #### V ITD, SERMPA, PTHI, RFP ####[address] [place] [phone] Hemoglobin (Bld) [Mass/Vol] 12.7 g/dL Low 13.0-17.[address] [facility] Comment on above: Performed By: #### V ITD, SERMPA, PTHI, RFP ####[place] [phone] Lymphocytes (Bld) [#/Vol] 0.30 10*3/uL Low 1.00-4.[address] [facility] Comment on above: Performed By: #### V ITD, SERMPA, PTHI, RFP ####[place] [phone] Lymphocytes/100 WBC (Bld) 2.6 % Normal [facility] Comment on above: Performed By: #### V ITD, SERMPA, PTHI, RFP ####[place] [phone] MCH 31.4 pG Normal 26.0-34.[address] [facility] Comment on above: Performed By: #### V ITD, SERMPA, PTHI, RFP ####[place] [address] [place] [phone] MCHC (RBC) [Mass/Vol] 33.0 g/dL Normal 30.5-36.0 [facility] Comment on above: Performed By: #### V ITD, SERMPA, PTHI, RFP ####[address] [place] [phone] MCV (RBC) [Entitic vol] 95.1 fL Normal 80.0-100.0 C [facility] Comment on above: Performed By: #### V ITD, SERMPA, PTHI, RFP ####[place] [address] [place] AveCWich[place], [place] [phone] Monocytes/100 WBC (Bld) 2.6 % Normal C [facility] Comment on above: Performed By: #### V ITD, SERMPA, PTHI, RFP ####[place] [address] AveCWich[address] [place], [place] [phone] Neutrophils/100 WBC (Bld) 94.7 % Normal [facility] Comment on above: Performed By: #### V ITD, SERMPA, PTHI, RFP ####[place] [address] AveCWich[address] [place], [place] [phone] NRBCs 0.0 /100 WBC Normal [address] [facility] Comment on above: Performed By: #### V ITD, SERMPA, PTHI, RFP ####[place] [address] AveCWich[address] [place], [place] [phone] Platelet mean volume (Bld) [Entitic vol] 9.0 fL Normal 9.0-12.[address] [facility] Comment on above: Performed By: #### V ITD, SERMPA, PTHI, RFP ####[place] [address] AveCWich[place], [place] [phone] Platelets (Bld) [#/Vol] 271 10*3/uL Normal 150-[address] [facility] Comment on above: Performed By: #### V ITD, SERMPA, PTHI, RFP ####[place] [address] AveCWich[address] [place], [place] [phone] RBC (Bld) [#/Vol] 4.05 10*6/uL Low 4.20-6.00 [facility] Comment on above: Performed By: #### V ITD, SERMPA, PTHI, RFP ####[place] [address] [place], [place] [phone] WBC (Bld) [#/Vol] 11.41 10*3/uL High 3.70-11.00 [facility] Comment on above: Performed By: #### V ITD, SERMPA, PTHI, RFP ####[facility] [address] [place], [place] [phone] CNOVon 11-12-2020 CNOV Office Visit (NEPHST ) KULWANT ANDRADE ([id number]) 1940 M Date Time Provider Department 11/12/20 2:00 PM SOFIYA SONG During your visit today, we recorded the following information about you: Respiration Weight Height 12/minute 80.3 kg 1.803 m Sofiya Song APRN.RUBBER CHEMIST 11/12/2020 3:47 PM Signed [facility] NEPHROLOGY AND HYPERTENSION [facility] SERVICE DATE: 11/11/2020 [...] 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 Done [facility]. Prior bonding machine tender: none Creatinine has been abnormal since September [...] well nourished. (more content not included)... Normal [facility] Monclnl Protein, Seron 11-12 K/L Ratio, Serum 1.09 Normal 0.26-1.65 [facility] Comment on above: Performed By: #### V ITD, SERMPA, PTHI, RFP ####[facility] [place], [place] [phone] [place], Free, Serum 16.6 mg/L Normal 3.30-19.40 [facility] Comment on above: Result Comment: Test performed by an immunoturbidimetric assay on Optilite instrument from [facility]. Immunoglobulin free light chain assay results should be interpreted in conjunction with other tests and in correlation with clinical picture. Performed By: #### V ITD, SERMPA, PTHI, RFP ####[address] [place] [phone] Lambda, Free, Serum 15.2 mg/L Normal 5.7-26.3 [facility] Comment on above: Result Comment: Test performed by an immunoturbidimetric assay on Optilite instrument from [facility]. Immunoglobulin free light chain assay results should be interpreted in conjunction with other tests and in correlation with clinical picture. Performed By: #### V ITD, SERMPA, PTHI, RFP ####[place] [phone] MPA Result No M protein is identified. Normal No M protein is identified . [facility] Comment on above: Performed By: #### V ITD, SERMPA, PTHI, RFP ####[address] [place] [phone] [facility] Serum IgA 101 mg/dL Normal 70-[address] [facility] Comment on above: Performed By: #### V ITD, SERMPA, PTHI, RFP ####[address] [place] [phone] [facility] Serum IgG 557 mg/dL Low 700-[address] [facility] Comment on above: Performed By: #### V ITD, SERMPA, PTHI, RFP ####[address]CMichelle V[place] [phone] MPA Serum IgM 75 mg/dL Normal 40-[address] [facility] Comment on above: Performed By: #### V ITD, SERMPA, PTHI, RFP ####[address] [place] [phone] Staff Review Reviewed by Yancy Barr MD ([id number]) Normal [facility] Comment on above: Performed By: #### V ITD, SERMPA, PTHI, RFP ####[facility] [place] AveClevelM[place], [place] [phone] Monoclonal Prot Uron 021 UMPA Result No M protein is identified. Normal No M protein is identified . [facility] Comment on above: Performed By: #### U RMPA, UAWMIC ####[facility] [address] AveClevelMorrow, [place] [phone] UMPA Staff Review Reviewed by Yancy Barr MD ([id number]) Normal [facility] Comment on above: Performed By: #### U RMPA, UAWMIC ####[facility] [place] AveCWich[place], [place] [phone] PTH, Intacton 11-12-2020 PTH, Intact 28 pg/mL Normal 15-[address] [facility] Comment on above: Performed By: #### V ITD, SERMPA, PTHI, RFP ####[facility] [place] AveCWich[place], [place] [phone] Protein/Creatinine Ratioon 0 11-12-2020 Creatinine,Urine,Ran 168.5 mg/dL Normal 20-300 [facility] Comment on above: Performed By: #### P RATIO ####[place] [address] AveCW[address] [place], [place] [phone] Protein (U) [Mass/Vol] 20 mg/dL Normal 0-20 [facility] Comment on above: Performed By: #### P RATIO ####[place] [address] AveClevelM[place], [place] [phone] Protein/Creatinine Ratio 0.1 Normal <0.[address] [facility] Comment on above: Performed By: #### P RATIO ####[place] [address] AveCsycamore medical centerandCoello, [place] [phone] Renal Function Panelon 06-14 -2021 Albumin [Mass/Vol] 4.1 g/dL Normal 3.9-4.9 [facility] Comment on above: Performed By: #### V ITD, SERMPA, PTHI, RFP ####[place] [address] [address] [phone] Anion gap [Moles/Vol] 14 mmol/L Normal 9-18 [facility] Comment on above: Performed By: #### V ITD, SERMPA, PTHI, RFP ####[place] [phone] Calcium [Mass/Vol] 8.9 mg/dL Normal 8.5-10.2 [facility] Comment on above: Performed By: #### V ITD, SERMPA, PTHI, RFP ####[place] [phone] Chloride [Moles/Vol] 108 mmol/L High 97-105 [facility] Comment on above: Performed By: #### V ITD, SERMPA, PTHI, RFP ####[place] [phone] CO2 [Moles/Vol] 20 mmol/L Low 22-[address] [facility] Comment on above: Performed By: #### V ITD, SERMPA, PTHI, RFP ####[place] [address] [address] [phone] Creatinine [Mass/Vol] 1.54 mg/dL High 0.73-1.22 [facility] Comment on above: Performed By: #### V ITD, SERMPA, PTHI, RFP ####[place] [address] [address] [phone] eGFR- Amer. 53 Normal [facility] Comment on above: Performed By: #### V ITD, SERMPA, PTHI, RFP ####[place] [address] [place] [phone] eGFR-All Other Races 44 . Normal [facility] Comment on above: Result Comment: eGFR (Estimated [...] By: #### V ITD, SERMPA, PTHI, RFP ####[facility] [place], [place] [phone] Glucose [Mass/Vol] 191 mg/dL High 74-99 [facility] Comment on above: Result Comment: The [place] [employer] (ADA) provides guidance for cutoff [...] Standards of Medical Care in Diabetes 2016, [place] [employer]. Diabetes Care. 2016.39(Suppl 1). Performed By: #### V ITD, SERMPA, PTHI, RFP ####[facility] [address] [place], [place] [phone] Phosphate [Mass/Vol] 3.4 mg/dL Normal 2.7-4.8 [facility] Comment on above: Performed By: #### V ITD, SERMPA, PTHI, RFP ####[facility] [address] [place] Av[place], [place] [phone] Potassium [Moles/Vol] 4.9 mmol/L Normal 3.7-5.1 [facility] Comment on above: Performed By: #### V ITD, SERMPA, PTHI, RFP ####[facility] [place] Ave[address] [place] [phone] Sodium [Moles/Vol] 142 mmol/L Normal 136-144 [facility] Comment on above: Performed By: #### V ITD, SERMPA, PTHI, RFP ####[place] [address] [place] [phone] Urea nitrogen [Mass/Vol] 44 mg/dL High 9-[address] [facility] Comment on above: Performed By: #### V ITD, SERMPA, PTHI, RFP ####[place] [address] [place] [phone] Urinalysis with Microscopico n 11-12-2020 Bilirubin, Urine Negative Normal Negative [facility] Comment on above: Performed By: #### U RMPA, UAWMIC ####[place] [address] Ave[address] [place] [phone] Clarity (U) Clear Normal Clear [facility] [facility] Comment on above: Performed By: #### U RMPA, UAWMIC ####[place] [address] [address] [place] [phone] Color (U) Yellow Normal Yellow [facility] Comment on above: Performed By: #### U RMPA, UAWMIC ####[facility]rystal [place] [phone] Comments SEE COMMENT Normal [facility] Comment on above: Result Comment: N/A Performed By: #### U RMPA, UAWMIC ####[facility] AveCWichita [place], [place] [phone] Glucose Ql (U) Negative Normal Negative [facility] Comment on above: Performed By: #### U RMPA, UAWMIC ####[facility] AveClevelM[place], [place] [phone] Hemoglobin/Blood,Ur Negative Normal Negative [facility] Comment on above: Performed By: #### U RMPA, UAWMIC ####[facility]Clevel[place], [place] [phone] Ketones Ql (U) Negative Normal Negative [facility] Comment on above: Performed By: #### U RMPA, UAWMIC ####[place] [address] [address]CC[address] [place] [phone] Leukest Negative Normal Negative [facility] Comment on above: Performed By: #### U RMPA, UAWMIC ####[place] [address] [address] [place] [phone] Nitrite Ql (U) Negative Normal Negative [facility] Comment on above: Performed By: #### U RMPA, UAWMIC ####[place] [address] [address] [place] [phone] pH (U) 5.0 [pH] Normal 5.0-8.[address] [facility] Comment on above: Performed By: #### U RMPA, UAWMIC ####[place] [address] [address]CC[address] [place] [phone] Protein, Urine 1+ Critically abnormal Negative [facility] Comment on above: Performed By: #### U RMPA, UAWMIC ####[place] [address] [address] [place] [phone] RBC 0-3 Normal 0-[address] [facility] Comment on above: Performed By: #### U RMPA, UAWMIC ####[place] [address] AveCWichita [place], [place] [phone] Specific [place], Ur 1.023 Normal 1.005-1 .[address] [facility] Comment on above: Performed By: #### U RMPA, UAWMIC ####[facility] [address] AvLos [place], [place] [phone] Urine Chris Comment SEE COMMENT Normal [facility] Comment on above: Result Comment: N/A Performed By: #### U RMPA, UAWMIC ####[facility] [place], [place] [phone] Urobilinogen (U) [Mass/Vol] Negative Normal Negative [facility] Comment on above: Performed By: #### U RMPA, UAWMIC ####[facility] [address] [place], [place] [phone] WBC 0-5 Normal 0-[address] [facility] Comment on above: Performed By: #### U RMPA, UAWMIC ####[place] [address] [place], [place] [phone] Vitamin D 25 Hydroxyon 11-12 Vitamin D 25 Hydroxy 57.5 ng/mL Normal 31.0-80.0 [facility] Comment on above: Result Comment: Clas sification of 25 [place] Vitamin D status: Insufficiency/Moderate Deficiency: < or = 30 ng/mL Sufficiency/Optimal Levels: 31 to 80 ng/mL Toxicity: > 100 ng/mL Test performed by chemiluminescent immunoassay. Performed By: #### V ITD, SERMPA, PTHI, RFP ####[facility] [place], [place] [phone] [facility] KULWANT ANDRADE ([id number]) 1940 M Date Time Provider Department 11/08/20 [...] PSR to make pulmonology apt Ankush Tee [facility] 11/13/2020 8:35 AM Signed Patient stated he is seeing Pulmonology at [facility]. He states it is Dr. Mckeon and he will have the records sent to PCP. Allergies As of Date: 11/08/2020 Noted Allergy Reaction ERYTHROMYCIN 04/15/2005 4 - Hives Date Reviewed: 10/11/2020 Reviewed by: Javi Bates MD - Fully Assessed Reason for Visit: Results [95] Primary Visit Diagnosis:Lung nodule [R91.1] Order(s):CONSULT TO PULMONARY MEDICINE [2352965] Order #: [id number]: 1 Prescriptions as of 11/08/2020 Sig: TYLENOL [...] Status:Closed by ANKUSH LEÓN RN on 11/13/20 [facility] CNPNon 10-22-2020 CNPN Telephone ([employer]) KULWANT ANDRADE ([id number]) 1940 M Date Time Provider Department 10/22/20 [...] message below with verbalized understanding. Transferred to [facility]. Allergies As of Date: 10/22/2020 Noted Allergy Reaction ERYTHROMYCIN 04/15/2005 4 - Hives Date Reviewed: 10/11/2020 Reviewed by: Javi Bates MD - Fully Assessed Reason for Visit: Results [95] Primary Visit Diagnosis:Stage 3b chronic kidney disease (HCC) [N18.32] Order(s):CONSULT TO NEPHROLOGY [9065] Order #: [id number]: 1 FUTURE Prescriptions as of 10/22/2020 Sig: [...] by Reji ALBERTS RN on 10/23/[address] [facility] Basic Metabolic Panlon 10-18 Anion gap [Moles/Vol] 12 mmol/L Normal 9-18 [facility] Comment on above: Performed By: #### B MP, ICA, PTHI ####[facility] [place], [place] [phone] Calcium [Mass/Vol] 9.3 mg/dL Normal 8.5-10.2 [facility] Comment on above: Performed By: #### B MP, ICA, PTHI ####[facility] [address] [place], [place] [phone] Chloride [Moles/Vol] 107 mmol/L High 97-105 [facility] Comment on above: Performed By: #### B MP, ICA, PTHI ####[facility] [address] AvLos [place], [place] [phone] CO2 [Moles/Vol] 22 mmol/L Normal 22-[address] [facility] Comment on above: Performed By: #### B MP, ICA, PTHI ####[facility], [place] [phone] Creatinine [Mass/Vol] 2.03 mg/dL High 0.73-1.22 [facility] Comment on above: Performed By: #### B MP, ICA, PTHI ####[place] [address] [address], [place] [phone] eGFR- Amer. 39 Normal [facility] Comment on above: Performed By: #### B MP, ICA, PTHI ####[facility], [place] [phone] eGFR-All Other Races 32 . Normal [facility] Comment on above: Result Comment: eGFR (Estimated [...] Performed By: #### B MP, ICA, PTHI ####[facility] [place], [place] [phone] Glucose [Mass/Vol] 93 mg/dL Normal 74-99 [facility] Comment on above: Result Comment: The [place] [employer] (ADA) provides guidance for cutoff [...] Standards of Medical Care in Diabetes 2016, [place] [employer]. Diabetes Care. 2016.39(Suppl 1). Performed By: #### B MP, ICA, PTHI ####[address] [phone] Potassium [Moles/Vol] 4.2 mmol/L Normal 3.7-5.1 [facility] Comment on above: Performed By: #### B MP, ICA, PTHI ####[address] [phone] Sodium [Moles/Vol] 141 mmol/L Normal 136-144 [facility] Comment on above: Performed By: #### B MP, ICA, PTHI ####[address] [phone] Urea nitrogen [Mass/Vol] 61 mg/dL High 9-[address] [facility] Comment on above: Performed By: #### B MP, ICA, PTHI ####[address] [phone] Calcium, Ionizedon 1 Calcium [Moles/Vol] 1.27 mmol/L Normal 1.08-1.30 [facility] Comment on above: Performed By: #### B MP, ICA, PTHI ####[address] [phone] Calcium, Ionized 1.34 mmol/L High 1.08-1.30 [facility] Comment on above: Performed By: #### B MP, ICA, PTHI ####[facility] [address] [place], [place] [phone] PTH, Intacton 10-18-2020 PTH, Intact 31 pg/mL Normal 15-[address] [facility] Comment on above: Performed By: #### B MP, ICA, PTHI ####[facility] [address] [place], [place] [phone] CNOVon 10-11-2020 CNOV Office Visit ([facility] ) KULWANT ANDRADE ([id number]) 1940 M Date Time Provider Department 10/11/20 8:40 AM [facility] your visit today, we recorded the following information about you: Temperature Pulse Respiration Blood pressure 97.8 degrees 101/minute 14/minute 98/56 Weight 79.2 kg Javi Bates MD 10/11/2020 4:45 PM Signed Chief Complaint Patient presents with: Follow Up Pain: joint pain, ankles, hips Shortness of Breath: onset 07/30/20 after vaccine HPI Kulwant Andrade is a 80 year old male who presents here today for Above Complaints.. 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 He [...] COVID-19 VACCIN (more content not included)... Normal [facility] ANAon 10-08-2020 KHANH by EIA 1.4 OD Ratio Normal [facility] Comment on above: Result Comment: OD R atio is interpreted as follows: Negative <1.0 Positive >=1.0 Performed By: #### R FP, CBCDIF, ICA, CRP, WSR, VITD, ANAS, SERFOL, PTHI ####[facility] [place], [place] [phone] KHANH by EIA, Qual Positive Critically abnormal Negative [facility] Comment on above: Result Comment: Resu lts are to be used as an aid to diagnosis. Confirmation testing for specific antibodies should be run if a positive assay is obtained. A positive result suggests certain diseases and should be confirmed by clinical findings. Performed By: #### R FP, CBCDIF, ICA, CRP, WSR, VITD, ANAS, SERFOL, PTHI ####[place] [address] [place] [phone] C-Reactive Proteinon 021 C-Reactive Protein 1.3 mg/dL High <0.9 [facility] Comment on above: Performed By: #### R FP, CBCDIF, ICA, CRP, WSR, VITD, ANAS, SERFOL, PTHI ####[place] [address] [place] [phone] CBC and Differentialon 10-08 Abs Baso 0.05 k/uL Normal <0.[address] [facility] Comment on above: Performed By: #### R FP, CBCDIF, ICA, CRP, WSR, VITD, ANAS, SERFOL, PTHI ####[place] [address] [place] [phone] Abs Traill 0.70 k/uL Normal <0.[address] [facility] Comment on above: Performed By: #### R FP, CBCDIF, ICA, CRP, WSR, VITD, ANAS, SERFOL, PTHI ####[place] [address] [place] [phone] Abs Neut 4.06 k/uL Normal 1.45-7.[address] [facility] Comment on above: Performed By: #### R FP, CBCDIF, ICA, CRP, WSR, VITD, ANAS, SERFOL, PTHI ####[place] [address] [place] [phone] Absolute nRBC <0.01 Normal <0.[address] [facility] Comment on above: Performed By: #### R FP, CBCDIF, ICA, CRP, WSR, VITD, ANAS, SERFOL, PTHI ####[place] [address] [place] [phone] Basophils/100 WBC (Bld) 0.8 % Normal C [facility] Comment on above: Performed By: #### R FP, CBCDIF, ICA, CRP, WSR, VITD, ANAS, SERFOL, PTHI ####[place] [address] [place] [phone] DTYPE Auto Diff Normal [facility] Comment on above: Performed By: #### R FP, CBCDIF, ICA, CRP, WSR, VITD, ANAS, SERFOL, PTHI ####[place] [address] [place] [phone] Eosinophils (Bld) [#/Vol] 0.27 10*3/uL Normal <0.[address] [facility] Comment on above: Performed By: #### R FP, CBCDIF, ICA, CRP, WSR, VITD, ANAS, SERFOL, PTHI ####[place] [address] [place] [phone] Eosinophils/100 WBC (Bld) 4.1 % Normal [facility] Comment on above: Performed By: #### R FP, CBCDIF, ICA, CRP, WSR, VITD, ANAS, SERFOL, PTHI ####[place] [address] [place] [phone] Erythrocyte distribution width (RBC) [Ratio] 12.0 % Normal 11.5-15.[address] [facility] Comment on above: Performed By: #### R FP, CBCDIF, ICA, CRP, WSR, VITD, ANAS, SERFOL, PTHI ####[place] [address] [place] [phone] Hematocrit (Bld) [Volume fraction] 45.1 % Normal 39.0-51.[address] [facility] Comment on above: Performed By: #### R FP, CBCDIF, ICA, CRP, WSR, VITD, ANAS, SERFOL, PTHI ####[place] [address] [place], [place] [phone] Hemoglobin (Bld) [Mass/Vol] 14.6 g/dL Normal 13.0-17.[address] [facility] Comment on above: Performed By: #### R FP, CBCDIF, ICA, CRP, WSR, VITD, ANAS, SERFOL, PTHI ####[place] [phone] Lymphocytes (Bld) [#/Vol] 1.47 10*3/uL Normal 1.00-4.[address] [facility] Comment on above: Performed By: #### R FP, CBCDIF, ICA, CRP, WSR, VITD, ANAS, SERFOL, PTHI ####[place] [phone] Lymphocytes/100 WBC (Bld) 22.4 % Normal [facility] Comment on above: Performed By: #### R FP, CBCDIF, ICA, CRP, WSR, VITD, ANAS, SERFOL, PTHI ####[place] [phone] MCH 31.3 pG Normal 26.0-34.[address] [facility] Comment on above: Performed By: #### R FP, CBCDIF, ICA, CRP, WSR, VITD, ANAS, SERFOL, PTHI ####[address] [place], [place] [phone] MCHC (RBC) [Mass/Vol] 32.4 g/dL Normal 30.5-36.0 [facility] Comment on above: Performed By: #### R FP, CBCDIF, ICA, CRP, WSR, VITD, ANAS, SERFOL, PTHI ####[address] [place] [phone] MCV (RBC) [Entitic vol] 96.8 fL Normal 80.0-100.0 C [facility] Comment on above: Performed By: #### R FP, CBCDIF, ICA, CRP, WSR, VITD, ANAS, SERFOL, PTHI ####[place] [address]CW[address] [place], [place] [phone] Monocytes/100 WBC (Bld) 10.7 % Normal C [facility] Comment on above: Performed By: #### R FP, CBCDIF, ICA, CRP, WSR, VITD, ANAS, SERFOL, PTHI ####[place] [address] [place] [phone] Neutrophils/100 WBC (Bld) 62.0 % Normal [facility] Comment on above: Performed By: #### R FP, CBCDIF, ICA, CRP, WSR, VITD, ANAS, SERFOL, PTHI ####[place] [address]CW[address] [place], [place] [phone] NRBCs 0.0 /100 WBC Normal [address] [facility] Comment on above: Performed By: #### R FP, CBCDIF, ICA, CRP, WSR, VITD, ANAS, SERFOL, PTHI ####[place] [address]CW[address] [place], [place] [phone] Platelet mean volume (Bld) [Entitic vol] 9.1 fL Normal 9.0-12.[address] [facility] Comment on above: Performed By: #### R FP, CBCDIF, ICA, CRP, WSR, VITD, ANAS, SERFOL, PTHI ####[place] [address] AveCWich[address] [place], [place] [phone] Platelets (Bld) [#/Vol] 512 10*3/uL High 150-[address] [facility] Comment on above: Performed By: #### R FP, CBCDIF, ICA, CRP, WSR, VITD, ANAS, SERFOL, PTHI ####[facility] [address] [place], [place] [phone] RBC (Bld) [#/Vol] 4.66 10*6/uL Normal 4.20-6.00 [facility] Comment on above: Performed By: #### R FP, CBCDIF, ICA, CRP, WSR, VITD, ANAS, SERFOL, PTHI ####[facility] [address] [place], [place] [phone] WBC (Bld) [#/Vol] 6.55 10*3/uL Normal 3.70-11.00 [facility] Comment on above: Performed By: #### R FP, CBCDIF, ICA, CRP, WSR, VITD, ANAS, SERFOL, PTHI ####[facility] [address] [place], [place] [phone] BRENDAOVon 10-08-2020 [facility] Office [facility] KULWANT ANDRADE ([id number]) 1940 M Date Time Provider Department 10/08/20 8:40 AM MARTHA FLOWER [facility] During your visit today, we recorded the following information about you: Pulse Respiration Blood pressure 72/minute 20/minute 102/70 Martha Flower APRN.[employer] 10/08/2020 9:11 AM Signed This is a [...] results. - (more content not included)... Normal [facility] Calcium, Ionizedon 1 Calcium [Moles/Vol] 1.33 mmol/L High 1.08-1.30 [facility] Comment on above: Performed By: #### R FP, CBCDIF, ICA, CRP, WSR, VITD, ANAS, SERFOL, PTHI ####[place] [address]CW[address] [place], [place] [phone] Calcium, Ionized 1.37 mmol/L High 1.08-1.30 [facility] Comment on above: Performed By: #### R FP, CBCDIF, ICA, CRP, WSR, VITD, ANAS, SERFOL, PTHI ####[place] [address]CW[address] [place], [place] [phone] Folate, Serumon 10-08-2020 Folate [Mass/Vol] 9.4 ng/mL Normal >4.7 [facility] Comment on above: Performed By: #### R FP, CBCDIF, ICA, CRP, WSR, VITD, ANAS, SERFOL, PTHI ####[address] [place] [phone] PTH, Intacton 10-08-2020 PTH, Intact 12 pg/mL Low 15-[address] [facility] Comment on above: Performed By: #### R FP, CBCDIF, ICA, CRP, WSR, VITD, ANAS, SERFOL, PTHI ####[address] [place] [phone] Remote B12 (for [facility] use only )on 10-08-2020 Cobalamin (Vitamin B12) [Mass/Vol] 451 pg/mL Normal 232-[address] [facility] Comment on above: Performed By: #### R B12 ####[place] [address], [place] [phone] Renal Function Panelon 10-08 Albumin [Mass/Vol] 4.3 g/dL Normal 3.9-4.9 [facility] Comment on above: Performed By: #### R FP, CBCDIF, ICA, CRP, WSR, VITD, ANAS, SERFOL, PTHI ####[place] [address] [place] [phone] Anion gap [Moles/Vol] 13 mmol/L Normal 9-18 [facility] Comment on above: Performed By: #### R FP, CBCDIF, ICA, CRP, WSR, VITD, ANAS, SERFOL, PTHI ####[place] [address] [place] [phone] Calcium [Mass/Vol] 10.2 mg/dL Normal 8.5-10.2 [facility] Comment on above: Performed By: #### R FP, CBCDIF, ICA, CRP, WSR, VITD, ANAS, SERFOL, PTHI ####[place] [phone] Chloride [Moles/Vol] 104 mmol/L Normal 97-105 [facility] Comment on above: Performed By: #### R FP, CBCDIF, ICA, CRP, WSR, VITD, ANAS, SERFOL, PTHI ####[place] [address] [place] [phone] CO2 [Moles/Vol] 25 mmol/L Normal 22-[address] [facility] Comment on above: Performed By: #### R FP, CBCDIF, ICA, CRP, WSR, VITD, ANAS, SERFOL, PTHI ####[place] [address] [place] [phone] Creatinine [Mass/Vol] 1.82 mg/dL High 0.73-1.22 [facility] Comment on above: Performed By: #### R FP, CBCDIF, ICA, CRP, WSR, VITD, ANAS, SERFOL, PTHI ####[place] [address] [place] [phone] eGFR- Amer. 44 Normal [facility] Comment on above: Performed By: #### R FP, CBCDIF, ICA, CRP, WSR, VITD, ANAS, SERFOL, PTHI ####[facility] [place], [place] [phone] eGFR-All Other Races 36 . Normal [facility] Comment on above: Result Comment: eGFR (Estimated [...] ICA, CRP, WSR, VITD, ANAS, SERFOL, PTHI ####[facility] [place], [place] [phone] Glucose [Mass/Vol] 99 mg/dL Normal 74-99 [facility] Comment on above: Result Comment: The [place] [employer] (ADA) provides guidance for cutoff [...] Standards of Medical Care in Diabetes 2016, [place] [employer]. Diabetes Care. 2016.39(Suppl 1). Performed By: #### R FP, CBCDIF, ICA, CRP, WSR, VITD, ANAS, SERFOL, PTHI ####[facility] [place], [place] [phone] Phosphate [Mass/Vol] 3.8 mg/dL Normal 2.7-4.8 [facility] Comment on above: Performed By: #### R FP, CBCDIF, ICA, CRP, WSR, VITD, ANAS, SERFOL, PTHI ####[facility] [place], [place] [phone] Potassium [Moles/Vol] 4.5 mmol/L Normal 3.7-5.1 [facility] Comment on above: Performed By: #### R FP, CBCDIF, ICA, CRP, WSR, VITD, ANAS, SERFOL, PTHI ####[facility] [place], [place] [phone] Sodium [Moles/Vol] 142 mmol/L Normal 136-144 [facility] Comment on above: Performed By: #### R FP, CBCDIF, ICA, CRP, WSR, VITD, ANAS, SERFOL, PTHI ####[place] [address], [place] [phone] Urea nitrogen [Mass/Vol] 41 mg/dL High 9-[address] [facility] Comment on above: Performed By: #### R FP, CBCDIF, ICA, CRP, WSR, VITD, ANAS, SERFOL, PTHI ####[place] [address] [place], [place] [phone] Sed Rate Westergrenon 2020 Sed Rate Westergren 109 mm/hr High 0-15 [facility] Comment on above: Performed By: #### R FP, CBCDIF, ICA, CRP, WSR, VITD, ANAS, SERFOL, PTHI ####[facility] [place], [place] [phone] Vitamin D 25 Hydroxyon 10-08 Vitamin D 25 Hydroxy 60.9 ng/mL Normal 31.0-80.0 [facility] Comment on above: Result Comment: Clas sification of 25 [place] Vitamin D status: Insufficiency/Moderate Deficiency: < or = 30 ng/mL Sufficiency/Optimal Levels: 31 to 80 ng/mL Toxicity: > 100 ng/mL Test performed by chemiluminescent immunoassay. Performed By: #### R FP, CBCDIF, ICA, CRP, WSR, VITD, ANAS, SERFOL, PTHI ####[facility] AveCWich[place], [place] [phone] CBC and Differentialon 10-02 Abs Baso 0.03 k/uL Normal <0.[address] [facility] Comment on above: Performed By: #### C BCDIF, CMP, TSH ####[place] [address] [place] [phone] Abs Traill 0.73 k/uL Normal <0.[address] [facility] Comment on above: Performed By: #### C BCDIF, CMP, TSH ####[place] [address] [place] [phone] Abs Neut 5.77 k/uL Normal 1.45-7.[address] [facility] Comment on above: Performed By: #### C BCDIF, CMP, TSH ####[place] [address] AveClevelDaniel [place] [phone] Absolute nRBC <0.01 Normal <0.[address] [facility] Comment on above: Performed By: #### C BCDIF, CMP, TSH ####[place] [address] AveCC[address] [place] [phone] Basophils/100 WBC (Bld) 0.4 % Normal C [facility] Comment on above: Performed By: #### C BCDIF, CMP, TSH ####[place] [address] AveClevelDaniel [place] [phone] DTYPE Auto Diff Normal [facility] Comment on above: Performed By: #### C BCDIF, CMP, TSH ####[place] [address]CC[address] [place] [phone] Eosinophils (Bld) [#/Vol] 0.59 10*3/uL High <0.[address] [facility] Comment on above: Performed By: #### C BCDIF, CMP, TSH ####[facility] AveClevelDaniel [place] [phone] Eosinophils/100 WBC (Bld) 7.5 % Normal [facility] Comment on above: Performed By: #### C BCDIF, CMP, TSH ####[facility] AveClevelDaniel [place] [phone] Erythrocyte distribution width (RBC) [Ratio] 12.4 % Normal 11.5-15.[address] [facility] Comment on above: Performed By: #### C BCDIF CMP, TSH ####[facility]CC[address] [place] [phone] Hematocrit (Bld) [Volume fraction] 40.5 % Normal 39.0-51.[address] [facility] Comment on above: Performed By: #### C BCDIF, CMP, TSH ####[facility] AveClevelDaniel [place] [phone] Hemoglobin (Bld) [Mass/Vol] 13.3 g/dL Normal 13.0-17.[address] [facility] Comment on above: Performed By: #### C BCDIF, CMP, TSH ####[facility] AveClevelDaniel [place] [phone] Lymphocytes (Bld) [#/Vol] 0.76 10*3/uL Low 1.00-4.[address] [facility] Comment on above: Performed By: #### C BCDIF, CMP, TSH ####[facility] AveClevelandGrace [place] [phone] Lymphocytes/100 WBC (Bld) 9.6 % Normal [facility] Comment on above: Performed By: #### C BCDIF, CMP, TSH ####[facility] [phone] MCH 31.1 pG Normal 26.0-34.[address] [facility] Comment on above: Performed By: #### C BCDIF, CMP, TSH ####[facility], [place] [phone] MCHC (RBC) [Mass/Vol] 32.8 g/dL Normal 30.5-36.0 [facility] Comment on above: Performed By: #### C BCDIF, CMP, TSH ####[facility], [place] [phone] MCV (RBC) [Entitic vol] 94.8 fL Normal 80.0-100.0 [facility] Comment on above: Performed By: #### C BCDIF, CMP, TSH ####[facility]CW[address] [place], [place] [phone] Monocytes/100 WBC (Bld) 9.3 % Normal [facility] Comment on above: Performed By: #### C BCDIF, CMP, TSH ####[facility], [place] [phone] Neutrophils/100 WBC (Bld) 73.2 % Normal [facility] Comment on above: Performed By: #### C BCDIF, CMP, TSH ####[facility], [place] [phone] NRBCs 0.0 /100 WBC Normal [address] [facility] Comment on above: Performed By: #### C BCDIF, CMP, TSH ####[facility] [address], [place] [phone] Platelet mean volume (Bld) [Entitic vol] 9.3 fL Normal 9.0-12.[address] [facility] Comment on above: Performed By: #### C BCDIF, CMP, TSH ####[facility], [place] [phone] Platelets (Bld) [#/Vol] 354 10*3/uL Normal 150-[address] [facility] Comment on above: Performed By: #### C BCDIF, CMP, TSH ####[facility] [place], [place] [phone] RBC (Bld) [#/Vol] 4.27 10*6/uL Normal 4.20-6.00 [facility] Comment on above: Performed By: #### C BCDIF, CMP, TSH ####[facility] [address] [place], [place] [phone] WBC (Bld) [#/Vol] 7.88 10*3/uL Normal 3.70-11.00 [facility] Comment on above: Performed By: #### C BCDIF, CMP, TSH ####[facility] [place], [place] [phone] CNOVon 10-02-2020 [facility] Office Visit ([facility] ) KULWANT ANDRADE ([id number]) 1940 M Date Time Provider Department 10/02/20 8:45 AM MAGALYS GUTIERRES [facility] During your visit today, we recorded the [...] history is provided by the patient. No foreign language professor was used. Musculoskeletal Problem This is [...] weight. He (more content not included)... [facility] Tele[facility] ([facility]) KULWANT ANDRADE ([id number]) 1940 M Date Time Provider Department 10/02/20 [...] [M79.10] Order(s):CALCIUM IONIZED B [SQICA] Order #: [id number] FUTURE RENAL FUNCTION PANEL [SQRFP] Order #: [id number] FUTURE PTH INTACT BLD [SQPTHI] Order #: [id number] FUTURE VITAMIN D 25 HYDROXY [SQVITD] Order #: [id number] FUTURE Prescriptions as of 10/02/2020 Sig: SPIRONOLACTONE [...] Status:Closed by LORRIE PÉREZ on 10/11/[address] [facility] Comp Metabolic Panelon 10-02 Albumin [Mass/Vol] 4.0 g/dL Normal 3.9-4.9 [facility] Comment on above: Performed By: #### C BCDIF, CMP, TSH ####[facility] [place], [place] [phone] ALP [Catalytic activity/Vol] 66 U/L Normal 38-[address] [facility] Comment on above: Performed By: #### C BCDIF, CMP, TSH ####[facility] [place], [place] [phone] ALT [Catalytic activity/Vol] 15 U/L Normal 10-[address] [facility] Comment on above: Performed By: #### C BCDIF, CMP, TSH ####[facility] [address] [place], [place] [phone] Anion gap [Moles/Vol] 12 mmol/L Normal 9-18 [facility] Comment on above: Performed By: #### C BCDIF, CMP, TSH ####[facility] [place], [place] [phone] AST [Catalytic activity/Vol] 15 U/L Normal 14-[address] [facility] Comment on above: Performed By: #### C BCDIF, CMP, TSH ####[facility] [place] [phone] Bilirubin [Mass/Vol] 0.5 mg/dL Normal 0.2-1.3 [facility] Comment on above: Performed By: #### C BCDIF CMP, TSH ####[facility] [place] [phone] Calcium [Mass/Vol] 10.4 mg/dL High 8.5-10.2 [facility] Comment on above: Performed By: #### C BCDIF CMP, TSH ####[place] [address] [place] [phone] Chloride [Moles/Vol] 104 mmol/L Normal 97-105 [facility] Comment on above: Performed By: #### C BCSAHARAFLEFTY, TSH ####[facility] [phone] CO2 [Moles/Vol] 25 mmol/L Normal 22-[address] [facility] Comment on above: Performed By: #### C BCLEFTY GANDARA, TSH ####[facility] [place] [phone] Creatinine [Mass/Vol] 2.03 mg/dL High 0.73-1.22 [facility] Comment on above: Performed By: #### C BCSAHARAF CMP, TSH ####[facility] [phone] eGFR- Amer. 39 Normal [facility] Comment on above: Performed By: #### C BCDIF CMP, TSH ####[facility] [phone] eGFR-All Other Races 32 . Normal [facility] Comment on above: Result Comment: eGFR (Estimated GFR) Units of measure: mL/min/1.73 meters squared eGFR is derived from the reexpressed MDRD Study equation using the following parameters: serum creatinine, age, gender and race. The creatinine assay has been calibrated to be traceable to IDMO. An eGFR <60 mL/min/1.73m2 for >3 months is consistent with chronic kidney disease. Refer to KDOQI guidelines for clinical interpretation. In patients with unstable renal function, e.g. those with acute kidney injury, the eGFR may not accurately reflect actual GFR. Performed By: #### C LEFTY INGRAM, TSH ####[facility] [place], [place] [phone] Glucose [Mass/Vol] 98 mg/dL Normal 74-99 [facility] Comment on above: Result Comment: The [place] [employer] Association (ADA) provides guidance for cutoff [...] Standards of Medical Care in Diabetes 2016, [place] [employer]. Diabetes Care. 2016.39(Suppl 1). Performed By: #### C LEFTY INGRAM, TSH ####[facility] [place], [place] [phone] Potassium [Moles/Vol] 5.2 mmol/L High 3.7-5.1 [facility] Comment on above: Performed By: #### C LEFTY INGRAM, TSH ####[facility] [place], [place] [phone] Protein [Mass/Vol] 6.8 g/dL Normal 6.3-8.0 [facility] Comment on above: Performed By: #### C BCLEFTY GANDARA, TSH ####[facility] [place], [place] [phone] Sodium [Moles/Vol] 141 mmol/L Normal 136-144 [facility] Comment on above: Performed By: #### C BCSAHARAFLEFTY, TSH ####[facility] [place], [place] [phone] Urea nitrogen [Mass/Vol] 43 mg/dL High 9-[address] [facility] Comment on above: Performed By: #### C JACQUELINEF CMP, TSH ####[facility] [place], [place] [phone] TSHon 10-02-2020 TSH Qn 3.090 m[IU]/L Normal 0.270-4.[address] [facility] Comment on above: Performed By: #### C JACQUELINEFLEFTY, TSH ####[facility] [place], [place] [phone] IR INJ FACET JOINT LUMBAR W/ GUIDEon [...] Date: 01/04/2020 4:33:52 PM Ordering Provider:Javi Coronel [facility] ([place]) Office Visit: teodora/crispin 04-27-2017 Documentation of current medications (procedure) Done Invalid Interpretation Code [facility] Work Phone: Fall risk assessment No Invalid Interpretation Code [facility] Work Phone: Tobacco smoking status NHIS Never Invalid Interpretation Code [facility] Work Phone: Tobacco use CPHS Never smoker Invalid Interpretation Code [facility] Work Phone: Lab Report: Basic Metabolic Profile (BMP)on 11-20-2016 Anion gap 4 mmol/L Low 5-15 [facility] Work Phone: BUN/Creatinine Ratio 23.0 RATIO High 10-20 [facility] Work Phone: Calcium 8.3 mg/dL Low 8.5-10.1 [facility] Work Phone: Chloride 111 mmol/L High 98-107 [facility] Work Phone: CO2 29.0 mmol/L Invalid Interpretation Code 21.0-32.0 [facility] Work Phone: Creatinine 1.00 mg/dL Invalid Interpretation Code 0.70-1.30 [facility] [employer] Work Phone: eGFR (non-black) 94 mL/min/{1.73_m2} Invalid Interpretation Code >60 [facility] Work Phone: eGFR (non-black) 78 mL/min/{1.73_m2} Invalid Interpretation Code >60 [facility] [employer] Work Phone: Glucose mass conc 84 mg/dL Invalid Interpretation Code 70-110 [facility] Work Phone: Potassium molar conc 4.0 mmol/L Invalid Interpretation Code 3.5-5.1 [facility] [employer] Work Phone: Sodium 144 mmol/L Invalid Interpretation Code 136-145 [facility] [employer] Work Phone: Urea nitrogen 23 mg/dL High 7-18 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 11-03-2016 Left ventricular Ejection fraction 55 % Invalid Interpretation Code [facility] Work Phone: Replaced Document: Caleb Rojas CG Observationson 06-13-2016 EKG QRS axis -20 deg Invalid Interpretation Code [facility] Work Phone: Interpretation Sinus Rhythm - frequ ent ectopic ventricular beat s # VECs = 2BORDERLINE RHYTHM Invalid Interpretation Code [facility] [employer] Work Phone: P [place] -1 deg Invalid Interpretation Code [facility] [employer] Work Phone: [place] Interval 190 ms Invalid Interpretation Code [facility] Work Phone: Pulse (Heart Rate) 61 /min Invalid Interpretation Code [facility] Work Phone: QRS Duration 94 ms Invalid Interpretation Code [facility] Work Phone: QT Interval new path ms Invalid Interpretation Code [facility] Work Phone: QTc Hayes 425 ms Invalid Interpretation Code [facility] Work Phone: T [place] 27 deg Invalid Interpretation Code [facility] Work Phone: Clinical Lists Updateon Alanine aminotransferase (ALT) 18 U/L Invalid Interpretation Code [facility] Work Phone: Alkaline phosphatase (ALP) 56 U/L Invalid Interpretation Code [facility] Work Phone: Aspartate aminotransferase (AST) 14 U/L Invalid Interpretation Code [facility] Work Phone: Bilirubin (total) 1.60 mg/dL High [facility] Work Phone: Hematocrit (HCT) 45.1 % Invalid Interpretation Code [facility] Work Phone: Hemoglobin mass conc (Bld) 15.6 g/dL Invalid Interpretation Code [facility] Work Phone: Platelets 232 10*3/mm3 Invalid Interpretation Code [facility] Work Phone: WBC (Leukocytes) 6.4 10*3/uL Invalid Interpretation Code [facility] Work Phone: Lab Report: Magnesiumon 05-01 Magnesium 2.5 mg/dL High 1.8-2.4 [facility] Work Phone: Lab Report: Thyroid Stim Hor tiffany (TSH)on 05-13-2016 Thyroid stimulating hormone (TSH) 9.09 u[iU]/mL High 0.358-3.74 [facility] Work Phone: HEPATIC FUNCTION PANEL ([phone])Ordered By: Nutter Up on 11-22-2015 Albumin [Mass/Vol] 4.2 g/dL Normal 3.5-4.8 [facility]; [facility] Work Phone: [...] Phone: Protein [Mass/Vol] 6.5 g/dL Normal 6.0-8.5 [facility]; [facility] Work Phone: LIPID PANEL ([phone])Ordered B y: Nutter Up on 11-22-2015 Cholesterol [Mass/Vol] 188 mg/dL Normal [...] Phone: Metabolic Panel, Basic ([phone])Ordered By: Nutter Up on 11-22-2015 Calcium [Mass/Vol] 9.0 mg/dL Normal 8.6-10.[address] [facility]; [facility] Work Phone: Chloride [Moles/Vol] 103 mmol/L Normal 97-108 [facility]; [facility] Work Phone: CO2 [Moles/Vol] 26 mmol/L Normal 18-29 [facility]; [facility] Work Phone: Creatinine [Mass/Vol] 1.16 mg/dL Normal 0.76-1.27 [facility]; [facility] Work Phone: GFR/1.73 sq M.predicted among blacks CKD-EPI (S/P/Bld) [Vol rate/Area] 72 mL/min/1.73 Normal [facility]; [facility] Work Phone: GFR/1.73 sq M.predicted among non-blacks CKD-EPI (S/P/Bld) [Vol rate/Area] 62 mL/min/1.73 Normal [facility]; [facility] Work Phone: Glucose [Mass/Vol] 91 mg/dL Normal 65-[address] [facility]; [facility] Work Phone: Potassium [Moles/Vol] 3.6 mmol/L Normal 3.5-5.2 [facility]; [facility] Work Phone: Sodium [Moles/Vol] 145 mmol/L Abnormal 134-[address] [facility]; [facility] Work Phone: Urea nitrogen [Mass/Vol] 25 mg/dL Normal 8-27 [facility]; [facility] Work Phone: Urea nitrogen/Creatinine [Mass ratio] 22 mg/mg Normal 10-22 [facility]; [facility] Work Phone: KHANH (ANTINUCLEAR ANTIBODY) ( [phone])Ordered By: Nutter Up on 08-08-2015 Nuclear Ab Ql (S) Negative Normal [facility]; [facility] Work Phone: C-REACTIVE PROTEIN ([phone])Or dered By: Nutter Up on 08-08-2015 CRP [Mass/Vol] 3.1 mg/L Normal 0.0-4.9 [facility]; [facility] Work Phone: CBC W/AUTO DIFF WBC ([phone])O rdered By: Nutter Up on 08-08-2015 Basophils (Bld) [#/Vol] 0.0 10*3/uL [...] (RBC) [Entitic mass] 30.5 pg Normal 26.6-33.0 [facility]; [facility] Work Phone: MCHC (RBC) [Mass/Vol] 34.5 g/dL Normal 31.5-35.7 [facility]; [facility] Work Phone: MCV (RBC) [Entitic vol] 88 fL Normal 79-97 [facility]; [facility] Work Phone: Monocytes (Bld) [#/Vol] 0.7 10*3/uL Normal 0.1-0.9 [facility]; [facility] Work Phone: Monocytes/100 WBC (Bld) 9 % Normal [facility]; [facility] Work Phone: Neutrophils (Bld) [#/Vol] 5.6 10*3/uL Normal 1.4-7.0 [facility]; [facility] Work Phone: Neutrophils/100 WBC (Bld) 72 % Normal [facility]; [facility] Work Phone: Platelets (Bld) [#/Vol] 279 10*3/uL Normal 150-379 [facility]; [facility] Work Phone: RBC (Bld) [#/Vol] 5.01 10*6/uL [facility].14[facility] Work Phone: WBC (Bld) [#/Vol] 7.9 10*3/uL Normal 3.4-10.[address] [facility]; [facility] Work Phone: CCP ANTIBODY ([phone])Ordered By: Nutter Up on 08-08-2015 Cyclic citrullinated peptide IgA+IgG IA Qn 15 {units} Normal 0-19 [facility]; [facility] Work Phone: METABOLIC PANEL, COMPREHENSI VE ([phone])Ordered By: Nutter Up on 08-08-2015 Albumin [Mass/Vol] 4.3 g/dL Normal 3.5-4.[address] [facility]; [facility] Work Phone: Albumin/Globulin [Mass ratio] 1.6 {ratio} Normal 1.1-2.5 [facility]; [facility] Work Phone: ALP [Catalytic activity/Vol] 78 U/L Normal 39-117 [facility]; [facility] Work Phone: ALT [Catalytic activity/Vol] 11 U/L Normal 0-44 [facility]; [facility] Work Phone: AST [Catalytic activity/Vol] 16 U/L Normal 0-40 [facility]; [facility] Work Phone: Bilirubin [Mass/Vol] 1.0 mg/dL Normal 0.0-1.2 [facility]; [facility] Work Phone: Calcium [Mass/Vol] 9.6 mg/dL Normal 8.6-10.[address] [facility]; [facility] Work Phone: Chloride [Moles/Vol] 103 mmol/L Normal 97-108 [facility]; [facility] Work Phone: CO2 [Moles/Vol] 23 mmol/L Normal 18-29 [facility] Internal [facility]; [facility] Work Phone: Creatinine [Mass/Vol] 1.08 mg/dL Normal 0.76-1.27 [facility]; [facility] Work Phone: GFR/1.73 sq M.predicted among blacks CKD-EPI (S/P/Bld) [Vol rate/Area] 79 mL/min/1.73 Normal [facility]; [facility] Work Phone: GFR/1.73 sq M.predicted among non-blacks CKD-EPI (S/P/Bld) [Vol rate/Area] 68 mL/min/1.73 Normal [facility]; [facility] Work Phone: Globulin (S) [Mass/Vol] 2.7 g/dL Normal 1.5-4.5 [facility]; [facility] Work Phone: Glucose [Mass/Vol] 129 mg/dL Abnormal 65-[address] [facility]; [facility] Work Phone: Potassium [Moles/Vol] 3.6 mmol/L Normal 3.5-5.2 [facility] prehensive Internal Medicine; [facility] Work Phone: Protein [Mass/Vol] 7.0 g/dL Normal 6.0-8.[address] [facility]; [facility] Work Phone: Sodium [Moles/Vol] 144 mmol/L Normal 134-[address] [facility]; [facility] Work Phone: Urea nitrogen [Mass/Vol] 18 mg/dL Normal 8-27 [facility]; [facility] Work Phone: Urea nitrogen/Creatinine [Mass ratio] 17 mg/mg Normal 10-22 [facility]; [facility] Work Phone: RHEUMATOID FACTOR-QUANT ([phone])Ordered By: Nutter Up on 08-08-2015 Rheumatoid factor Qn 3.2 [IU]/mL Normal 0.0-13.9 [facility] prehensive Internal Medicine; [facility] Work Phone: SED RATE ERYTHROCYTE ([id number]) Ordered By: Nutter Up on 08-08-2015 ESR (Bld) [Velocity] 5 mm/h Normal 0-30 [facility]; [facility] Work Phone: URIC ACID BLOOD ([phone])Order ed By: Nutter Up on 08-08-2015 Urate [Mass/Vol] 7.4 mg/dL Normal 3.7-8.6 [facility]; [facility] Work Phone: CBC W/AUTO DIFF WBC ([id number])O rdered By: Nutter Up on 05-21-2015 Basophils (Bld) [#/Vol] 0.0 10*3/uL Normal 0.0-0.2 [facility]; [facility] [...] [facility] Work Phone: LIPID PANEL ([phone])Ordered B y: Nutter Up on 05-21-2015 Cholesterol [Mass/Vol] 246 mg/dL Abnormal [...] Medicine Work Phone: METABOLIC PANEL, COMPREHENSI VE ([phone])Ordered By: Nutter Up on 05-21-2015 Albumin [Mass/Vol] 3.9 g/dL Normal 3.5-4.[address] [facility]; [facility] Work Phone: Albumin/Globulin [Mass ratio] 1.5 {ratio} Normal 1.1-2.5 [facility]; [facility] Work Phone: ALP [Catalytic activity/Vol] 66 U/L Normal 39-117 [facility]; [facility] Work Phone: ALT [Catalytic activity/Vol] 12 U/L Normal 0-44 [facility]; [facility] Work Phone: AST [Catalytic activity/Vol] 11 U/L Normal 0-40 [facility] Internal Medicine; [facility] Work Phone: Bilirubin [Mass/Vol] 1.1 mg/dL Normal 0.0-1.2 [facility]; [facility] Work Phone: Calcium [Mass/Vol] 8.9 mg/dL Normal 8.6-10.[address] [facility]; [facility] Work Phone: Chloride [Moles/Vol] 106 mmol/L Normal 97-108 [facility]; [facility] Work Phone: CO2 [Moles/Vol] 23 mmol/L Normal 18-29 [facility]; [facility] Work Phone: Creatinine [Mass/Vol] 1.08 mg/dL Normal 0.76-1.27 [facility]; [facility] Work Phone: GFR/1.73 sq M.predicted among blacks CKD-EPI (S/P/Bld) [Vol rate/Area] 79 mL/min/1.73 Normal [facility]; [facility] Work Phone: GFR/1.73 sq M.predicted among non-blacks CKD-EPI (S/P/Bld) [Vol rate/Area] 68 mL/min/1.73 Normal [facility] Internal Medicine; [facility] Work Phone: Globulin (S) [Mass/Vol] 2.6 g/dL Normal 1.5-4.5 [facility]; [facility] Work Phone: Glucose [Mass/Vol] 87 mg/dL Normal 65-[address] [facility]; [facility] Work Phone: Potassium [Moles/Vol] 4.0 mmol/L Normal 3.5-5.2 [facility] Internal Medicine; [facility] Work Phone: Protein [Mass/Vol] 6.5 g/dL Normal 6.0-8.[address] [facility]; [facility] Work Phone: Sodium [Moles/Vol] 146 mmol/L Abnormal 134-[address] [facility]; [facility] Work Phone: Urea nitrogen [Mass/Vol] 16 mg/dL Normal 8-27 [facility]; [facility] Work Phone: Urea nitrogen/Creatinine [Mass ratio] 15 mg/mg Normal 10-22 [facility]; [facility] Work Phone: PSA (PROSTATE SPECIFIC ANTIG EN) (V76.44)Ordered By: Nutter Up on 05-21-2015 Prostate specific Ag [Mass/Vol] 0.8 ng/mL Normal 0.0-4.0 [facility]; [facility] Work Phone: TSH ([phone])Ordered By: Holli [employer] Educator on 05-21-2015 TSH Qn 1.370 {uIU/mL} Normal 0.450-4.50 0 [facility]; [facility] Work Phone: Vitamin D Hydroxy ([phone])Ord ered By: Nutter Up on 05-21-2015 25-hydroxyvitamin D [Mass/Vol] 26.7 ng/mL Abnormal 30.0-100.0 [facility]; [facility] Work Phone: CALCIFEDIOL ([phone])Ordered B y: Nutter Up on 01-18-2015 25-hydroxyvitamin D [Mass/Vol] 44.9 ng/mL Normal 30.0-100.0 [facility]; [facility] Work Phone: CBC WITH MANUAL DIFF ([phone]) Ordered By: Nutter Up on 01-18-2015 Basophils (Bld) [#/Vol] 0.0 10*3/uL [...] MCHC (RBC) [Mass/Vol] 33.6 g/dL Normal 31.5-35.7 [facility] prehensive Internal Medicine; [facility] [...] [facility] Work Phone: Lipid Panel ([id number])Ordered B y: Nutter Up on 01-18-2015 Cholesterol [Mass/Vol] 248 mg/dL Abnormal [...] Medicine Work Phone: Metabolic Panel, Comprehensi ve ([id number])Ordered By: Nutter Up on 01-18-2015 Albumin [Mass/Vol] 4.4 g/dL Normal 3.5-4.[address] [facility]; [facility] Work Phone: Albumin/Globulin [Mass ratio] 1.9 {ratio} Normal 1.1-2.5 [facility] Internal Medicine; [facility] Work Phone: ALP [Catalytic activity/Vol] 65 U/L Normal 39-117 [facility] Internal Medicine; [facility] Work Phone: ALT [Catalytic activity/Vol] 9 U/L Normal 0-44 [facility] Internal Medicine; [facility] Work Phone: AST [Catalytic activity/Vol] 12 U/L Normal 0-40 [facility] Internal Medicine; [facility] Work Phone: Bilirubin [Mass/Vol] 1.2 mg/dL Normal 0.0-1.2 [facility]; [facility] Work Phone: Calcium [Mass/Vol] 9.1 mg/dL Normal 8.6-10.[address] [facility] Internal Medicine; [facility] Work Phone: Chloride [Moles/Vol] 102 mmol/L Normal 97-108 [facility] rehensive Internal Medicine; [facility] Work Phone: CO2 [Moles/Vol] 24 mmol/L Normal 18-29 [facility] Internal Medicine; [facility] Work Phone: Creatinine [Mass/Vol] 1.12 mg/dL Normal 0.76-1.27 [facility] Internal Medicine; [facility] Work Phone: GFR/1.73 sq M.predicted among blacks CKD-EPI (S/P/Bld) [Vol rate/Area] 75 mL/min/1.73 Normal [facility] Internal Medicine; [facility] Work Phone: GFR/1.73 sq M.predicted among non-blacks CKD-EPI (S/P/Bld) [Vol rate/Area] 65 mL/min/1.73 Normal [facility]; [facility] Work Phone: Globulin (S) [Mass/Vol] 2.3 g/dL Normal 1.5-4.5 [facility]; [facility] Work Phone: Glucose [Mass/Vol] 85 mg/dL Normal 65-99 [facility]; [facility] Work Phone: Potassium [Moles/Vol] 4.0 mmol/L Normal 3.5-5.2 Com prehensive [facility] Medicine; [facility] Work Phone: Protein [Mass/Vol] 6.7 g/dL Normal 6.0-8.[address] [facility] Internal Medicine; [facility] Work Phone: Sodium [Moles/Vol] 145 mmol/L Abnormal 134-144 [facility]; [facility] Work Phone: Urea nitrogen [Mass/Vol] 17 mg/dL Normal 8-27 [facility]; [facility] Work Phone: Urea nitrogen/Creatinine [Mass ratio] 15 mg/mg Normal 10-22 [facility]; [facility] Work Phone: TSH ([id number])Ordered By: Holli m Healthcare Educator on 01-18-2015 TSH Qn 10.550 {uIU/mL} Abnormal 0.450-4.50 0 [facility]; [facility] Work Phone: Rapid Strep Test, Office ([phone])on 10-31-2014 S. pyogenes Ag EIA Ql (Throat) Negative Normal [facility]; [facility] Work Phone: Rapid Strep Test, Office ([phone])Ordered By: Madison Cam on 10-05-2014 S. pyogenes Ag EIA Ql (Throat) Negative Normal [facility]; [facility] Work Phone: C-REACTIVE PROTEIN ([id number])Or dered By: Nutter Up on 09-27-2014 CRP [Mass/Vol] 4.1 mg/L Normal 0.0-4.9 [facility] Internal Medicine; [facility] Work Phone: CBC with auto diff ([id number])Or dered By: Nutter Up on 09-27-2014 Basophils (Bld) [#/Vol] 0.0 10*3/uL [...] MCHC (RBC) [Mass/Vol] 34.4 g/dL Normal 31.5-35.7 [facility]; [facility] Work Phone: MCV (RBC) [Entitic vol] 86 fL Normal 79-97 [facility]; [facility] Work Phone: Monocytes (Bld) [#/Vol] 0.6 10*3/uL Normal 0.1-0.9 [facility]; [facility] Work Phone: Monocytes/100 WBC (Bld) 8 % Normal [facility]; [facility] Work Phone: Neutrophils (Bld) [#/Vol] 5.7 10*3/uL Normal 1.4-7.0 [facility]; [facility] Work Phone: Neutrophils/100 WBC (Bld) 67 % Normal [facility]; [facility] Work Phone: Platelets (Bld) [#/Vol] 286 10*3/uL Normal 150-379 [facility]; [facility] Work Phone: RBC (Bld) [#/Vol] 4.68 10*6/uL [facility] Work Phone: WBC (Bld) [#/Vol] 8.3 10*3/uL Normal 3.4-10.8 Compre hensive Internal Medicine; [facility] Work Phone: CCP ANTIBODY ([id number])Ordered By: Nutter Up on 09-27-2014 Cyclic citrullinated peptide IgA+IgG IA Qn 3 {units} Normal 0-19 [facility]; [facility] Work Phone: LIPID PANEL ([id number])Ordered B y: Nutter Up on 09-27-2014 Cholesterol [Mass/Vol] 248 mg/dL Abnormal 100-199 [facility]; [facility] Work Phone: [...] Medicine Work Phone: METABOLIC PANEL, COMPREHENSI VE ([id number])Ordered By: Nutter Up on 09-27-2014 Albumin [Mass/Vol] 4.2 g/dL Normal 3.5-4.[address] [facility] Internal Medicine; [facility] Work Phone: Albumin/Globulin [Mass ratio] 1.8 {ratio} Normal 1.1-2.5 [facility] Internal Medicine; [facility] [...] Phone: Calcium [Mass/Vol] 9.5 mg/dL Normal 8.6-10.2 [facility] Internal [facility]; [facility] Internal Medicine Work Phone: Chloride [Moles/Vol] 101 mmol/L Normal 97-108 [facility]; [facility] Medicine Work Phone: CO2 [Moles/Vol] 23 mmol/L Normal 18-29 [facility]; [facility] Work Phone: Creatinine [Mass/Vol] 1.23 mg/dL Normal 0.76-1.27 [facility]; [facility] Work Phone: GFR/1.73 sq M.predicted among blacks CKD-EPI (S/P/Bld) [Vol rate/Area] 67 mL/min/1.73 Normal [facility]; [facility] Work Phone: GFR/1.73 sq M.predicted among non-blacks CKD-EPI (S/P/Bld) [Vol rate/Area] 58 mL/min/1.73 Abnormal [facility] Internal Medicine; [facility] Work Phone: Globulin (S) [Mass/Vol] 2.4 g/dL Normal 1.5-4.5 [facility]; [facility] Work Phone: Glucose [Mass/Vol] 113 mg/dL Abnormal 65-[address] [facility] Internal Medicine; [facility] Work Phone: Potassium [Moles/Vol] 4.2 mmol/L Normal 3.5-5.2 [facility] Internal Medicine; [facility] Work Phone: Protein [Mass/Vol] 6.6 g/dL Normal 6.0-8.[address] [facility] Internal Medicine; [facility] Work Phone: Sodium [Moles/Vol] 143 mmol/L Normal 134-[address] [facility] Internal Medicine; [facility] Work Phone: Urea nitrogen [Mass/Vol] 20 mg/dL Normal 8-27 [facility] Internal Medicine; [facility] Work Phone: Urea nitrogen/Creatinine [Mass ratio] 16 mg/mg Normal 10-22 [facility] Internal [facility]; [facility] Work Phone: SED RATE ERYTHROCYTE ([id number]) Ordered By: Nutter Up on 09-27-2014 ESR (Bld) [Velocity] 8 mm/h Normal 0-30 [facility] Internal Medicine; [facility] Work Phone: TSH ([id number])Ordered By: Syste m Healthcare Educator on 09-27-2014 TSH Qn 2.360 {uIU/mL} Normal 0.450-4.50 0 [facility]; [facility] Work Phone: URINALYSIS, W/ MICRO ([id number]) Ordered By: Nutter Up on 09-27-2014 Appearance (U) Clear Normal Comprehens [...] Phone: URINE PAYTON CULTURE (MELVIN COL COUNT) ([id number])Ordered By: Nutter Up on 09-27-2014 Bacteria identified Cx Nom (U) Final report Abnormal [facility]; [facility] Work Phone: Bacteria identified Cx Nom (U) Escherichia coli Abnormal [facility]; [facility] Work Phone: Bacteria identified Cx Nom (U) BETAGB Abnormal [facility]; [facility] Work Phone: Office Visiton 09-20-2014 General cardiovascular disease 10Y risk [#] [place] 33 % Invalid Interpretation Code [facility] Work Phone: KHANH (ANTINUCLEAR ANTIBODY) ( [phone])Ordered By: Nutter Up on 06-27-2014 Nuclear Ab Ql (S) Negative Normal Compreh ensive Internal Medicine; [facility] Work Phone: C-REACTIVE PROTEIN ([phone])Or dered By: Nutter Up on 06-27-2014 CRP [Mass/Vol] 4.3 mg/L Normal 0.0-4.9 [facility]; [facility] Work Phone: CBC, PLATELETS & AUT DIFF ([phone])Ordered By: Nutter Up on 06-27-2014 Basophils (Bld) [#/Vol] 0.0 10*3/uL [...] MCHC (RBC) [Mass/Vol] 34.5 g/dL Normal 31.5-35.7 [facility] prehensive Internal Medicine; [facility] [...] RBC (Bld) [#/Vol] 5.04 10*6/uL Normal 4.14-5.80 [facility] Internal Medicine; [facility] Internal Medicine Work Phone: WBC (Bld) [#/Vol] 5.6 10*3/uL Normal 3.4-10.[address] [facility] Internal Medicine; [facility] Internal Medicine Work Phone: LDH (LD) (LACTATE DEHYDROGEN ASE) ([id number])Ordered By: Nutter Up on 06-27-2014 LDH [Catalytic activity/Vol] 199 U/L Normal 121-224 [facility] Internal Medicine; [facility] Medicine Work Phone: METABOLIC PANEL, COMPREHENSI VE ([id number])Ordered By: Nutter Up on 06-27-2014 Albumin [Mass/Vol] 4.5 g/dL Normal 3.5-4.[address] [facility] Internal Medicine; [facility] Medicine Work Phone: Albumin/Globulin [Mass ratio] 1.8 {ratio} Normal 1.1-2.5 [facility] Internal Medicine; [facility] Medicine Work Phone: ALP [Catalytic activity/Vol] 73 U/L Normal 39-117 [facility] Internal Medicine; [facility] Medicine Work Phone: ALT [Catalytic activity/Vol] 12 U/L Normal 0-44 [facility] Internal Medicine; [facility] Medicine Work Phone: AST [Catalytic activity/Vol] 13 U/L Normal 0-40 [facility] Internal Medicine; [facility] Medicine Work Phone: Bilirubin [Mass/Vol] 1.1 mg/dL Normal 0.0-1.2 [facility] Internal Medicine; [facility] Medicine Work Phone: Calcium [Mass/Vol] 9.9 mg/dL Normal 8.6-10.[address] [facility] Internal Medicine; [facility] Internal Medicine Work Phone: Chloride [Moles/Vol] 101 mmol/L Normal 97-108 [facility] Internal Medicine; [facility] Internal Medicine Work Phone: CO2 [Moles/Vol] 23 mmol/L Normal 18-29 [facility] Internal Medicine; [facility] Work Phone: Creatinine [Mass/Vol] 1.15 mg/dL Normal 0.76-1.27 [facility]; [facility] Work Phone: GFR/1.73 sq M.predicted among blacks CKD-EPI (S/P/Bld) [Vol rate/Area] 74 mL/min/1.73 Normal [facility]; [facility] Work Phone: GFR/1.73 sq M.predicted among non-blacks CKD-EPI (S/P/Bld) [Vol rate/Area] 64 mL/min/1.73 Normal [facility]; [facility] Work Phone: Globulin (S) [Mass/Vol] 2.5 g/dL Normal 1.5-4.5 [facility] Internal [facility]; [facility] Work Phone: Glucose [Mass/Vol] 81 mg/dL Normal 65-[address] [facility] Internal Medicine; [facility] Work Phone: Potassium [Moles/Vol] 4.0 mmol/L Normal 3.5-5.2 [facility] Internal Medicine; [facility] Work Phone: Protein [Mass/Vol] 7.0 g/dL Normal 6.0-8.[address] [facility] Internal [facility]; [facility] Work Phone: Sodium [Moles/Vol] 142 mmol/L Normal 134-[address] [facility] Internal [facility]; [facility] Work Phone: Urea nitrogen [Mass/Vol] 20 mg/dL Normal 8-27 [facility] Internal Medicine; [facility] Work Phone: Urea nitrogen/Creatinine [Mass ratio] 17 mg/mg Normal 10-22 [facility]; [facility] Work Phone: RHEUMATOID FACTOR-QUANT ([phone])Ordered By: Nutter Up on 06-27-2014 Rheumatoid factor Qn 8.1 [IU]/mL Normal 0.0-13.9 [facility]; [facility] Work Phone: TSH ([id number])Ordered By: Syste m Healthcare Educator on 06-27-2014 TSH Qn 1.650 {uIU/mL} Normal 0.450-4.50 0 [facility]; [facility] Work Phone: Vitamin D Hydroxy ([id number])Ord ered By: Nutter Up on 06-27-2014 25-hydroxyvitamin D [Mass/Vol] 45.4 ng/mL Normal 30.0-100.0 [facility]; [facility] Work Phone: LIPID PANEL ([id number])Ordered B y: Nutter Up on 06-16-2014 Cholesterol [Mass/Vol] 250 mg/dL Abnormal [...] Medicine Work Phone: METABOLIC PANEL, COMPREHENSI VE ([phone])Ordered By: Nutter Up on 06-16-2014 Albumin [Mass/Vol] 4.2 g/dL Normal 3.5-4.8 [facility]; [facility] Work Phone: Albumin/Globulin [Mass ratio] 1.8 {ratio} Normal 1.1-2.5 [facility]; [facility] Work Phone: ALP [Catalytic activity/Vol] 67 U/L Normal 39-117 [facility]; [facility] Work Phone: ALT [Catalytic activity/Vol] 9 U/L Normal 0-44 [facility]; [facility] Work Phone: AST [Catalytic activity/Vol] 13 U/L Normal 0-40 [facility]; [facility] Work Phone: Bilirubin [Mass/Vol] 1.0 mg/dL Normal 0.0-1.2 [facility]; [facility] Work Phone: Calcium [Mass/Vol] 9.1 mg/dL Normal 8.6-10.[address] [facility] Internal [facility]; [facility] Work Phone: Chloride [Moles/Vol] 105 mmol/L Normal 97-108 [facility]; [facility] Work Phone: CO2 [Moles/Vol] 23 mmol/L Normal 18-29 [facility] Internal Medicine; [facility] Internal Medicine Work Phone: Creatinine [Mass/Vol] 1.03 mg/dL Normal 0.76-1.27 [facility]; [facility] Internal Medicine Work Phone: GFR/1.73 sq M.predicted among blacks CKD-EPI (S/P/Bld) [Vol rate/Area] 84 mL/min/1.73 Normal [facility]; [facility] Work Phone: GFR/1.73 sq M.predicted among non-blacks CKD-EPI (S/P/Bld) [Vol rate/Area] 73 mL/min/1.73 Normal [facility] Internal Medicine; [facility] Work Phone: Globulin (S) [Mass/Vol] 2.3 g/dL Normal 1.5-4.5 [facility]; [facility] Work Phone: Glucose [Mass/Vol] 87 mg/dL Normal 65-[address] [facility] Internal Medicine; [facility] Internal Medicine Work Phone: Potassium [Moles/Vol] 3.7 mmol/L Normal 3.5-5.2 [facility] Internal [facility]; [facility] Internal Medicine Work Phone: Protein [Mass/Vol] 6.5 g/dL Normal 6.0-8.[address] [facility] Internal Medicine; [facility] Medicine Work Phone: Sodium [Moles/Vol] 147 mmol/L Abnormal 134-144 Compre hensive Internal Medicine; [facility] Work Phone: Urea nitrogen [Mass/Vol] 17 mg/dL Normal 8-27 [facility]; [facility] Work Phone: Urea nitrogen/Creatinine [Mass ratio] 17 mg/mg Normal 10-22 [facility]; [facility] Work Phone: TSH ([id number])Ordered By: Holli jo Healthcare Educator on 06-16-2014 TSH Qn 1.070 {uIU/mL} Normal 0.450-4.50 0 [facility]; [facility] Work Phone: Office Visit: [facility] 05-03-20 14 cardiac risk group B Invalid Interpretation Code [facility] Work Phone: LIPID PANEL ([id number])Ordered B y: Nutter Up on 02-14-2014 Cholesterol [Mass/Vol] 250 mg/dL Abnormal [...] Medicine Work Phone: METABOLIC PANEL, COMPREHENSI VE ([phone])Ordered By: Nutter Up on 02-14-2014 Albumin [Mass/Vol] 4.3 g/dL Normal 3.5-4.8 [facility]; [facility] Work Phone: Albumin/Globulin [Mass ratio] 1.8 {ratio} Normal 1.1-2.5 [facility]; [facility] Work Phone: ALP [Catalytic activity/Vol] 71 U/L Normal 39-117 [facility]; [facility] Work Phone: ALT [Catalytic activity/Vol] 11 U/L Normal 0-44 [facility]; [facility] Work Phone: AST [Catalytic activity/Vol] 10 U/L Normal 0-40 [facility]; [facility] Work Phone: Bilirubin [Mass/Vol] 0.7 mg/dL Normal 0.0-1.2 Comp rehensive Internal Medicine; [facility] Work Phone: Calcium [Mass/Vol] 9.1 mg/dL Normal 8.6-10.[address] [facility] Internal [facility]; [facility] Work Phone: Chloride [Moles/Vol] 100 mmol/L Normal 97-108 [facility] rehensive [facility] Medicine; [facility] Work Phone: CO2 [Moles/Vol] 25 mmol/L Normal 18-29 [facility]; [facility] Work Phone: Creatinine [Mass/Vol] 1.06 mg/dL Normal 0.76-1.27 [facility]; [facility] [...] Phone: Glucose [Mass/Vol] 85 mg/dL Normal 65-99 [facility]; [facility] Work Phone: Potassium [Moles/Vol] 4.0 mmol/L Normal 3.5-5.2 [facility] prehensive Internal Medicine; [facility] Work Phone: Protein [Mass/Vol] 6.7 g/dL Normal 6.0-8.[address] [facility]; [facility] Work Phone: Sodium [Moles/Vol] 142 mmol/L Normal 134-[address] [facility] Internal Medicine; [facility] Medicine Work Phone: Urea nitrogen [Mass/Vol] 18 mg/dL Normal 8-27 [facility]; [facility] Work Phone: Urea nitrogen/Creatinine [Mass ratio] 17 mg/mg Normal 10-22 [facility]; [facility] Work Phone: PSA (PROSTATE SPECIFIC ANTIG EN) (V76.44)Ordered By: Nutter Up on 02-14-2014 Prostate specific Ag [Mass/Vol] 1.7 ng/mL Normal 0.0-4.0 [facility]; [facility] Work Phone: TSH ([id number])Ordered By: Holli m Healthcare Educator on 02-14-2014 TSH Qn 9.320 {uIU/mL} Abnormal 0.450-4.50 0 [facility]; [facility] Work Phone: TSH Qn TSHA Normal [facility]; [facility] Work Phone: Vitamin D Hydroxy ([id number])Ord ered By: Nutter Up on 02-14-2014 25-hydroxyvitamin D [Mass/Vol] 32.6 ng/mL Normal 30.0-100.0 [facility]; [facility] Work Phone: URINE PAYTON CULTURE (MELVIN COL COUNT) ([id number])Ordered By: Nutter Up on 11-10-2013 Bacteria identified Cx Nom (U) Final report Normal [facility]; [facility] Work Phone: Bacteria identified Cx Nom (U) MUG Normal [facility]; [facility] Work Phone: URINE PAYTON CULTURE (MELVIN COL COUNT) ([id number])Ordered By: Nutter Up on 10-21-2013 Bacteria identified Cx Nom (U) Final report Abnormal [facility]; [facility] Work Phone: Bacteria identified Cx Nom (U) Enterococcus faecalis Abnormal Comprehens [facility]; [facility] Work Phone: Other Antibiotic [Susc] MIHEAD Normal C o[facility]rehens[facility]; [facility] Work Phone: CBC WITH MANUAL DIFF ([id number]) Ordered By: Nutter Up on 10-07-2013 Basophils (Bld) [#/Vol] 0.0 10*3/uL [...] MCHC (RBC) [Mass/Vol] 34.8 g/dL Normal 31.5-35.7 [facility] prehensive Internal Medicine; [facility] [...] RBC (Bld) [#/Vol] 4.76 10*6/uL Normal 4.14-5.80 [facility] ehens[facility]; [facility] Work Phone: WBC (Bld) [#/Vol] 7.2 10*3/uL Normal 3.4-10.8 Compre hensive Internal Medicine; [facility] Work Phone: LIPID PANEL ([id number])Ordered B y: Nutter Up on 10-07-2013 Cholesterol [Mass/Vol] 243 mg/dL Abnormal [...] Triglyceride [Mass/Vol] 234 mg/dL Abnormal 0-149 [facility]; [facility] Work Phone: METABOLIC PANEL, COMPREHENSI VE ([id number])Ordered By: Nutter Up on 10-07-2013 Albumin [Mass/Vol] 4.2 g/dL Normal 3.5-4.[address] [facility] Internal Medicine; [facility] Medicine Work Phone: Albumin/Globulin [Mass ratio] 1.5 {ratio} Normal 1.1-2.5 [facility]; [facility] Work Phone: ALP [Catalytic activity/Vol] 76 U/L Normal 39-117 [facility]; [facility] Work Phone: ALT [Catalytic activity/Vol] 25 U/L Normal 0-44 [facility]; [facility] Work Phone: AST [Catalytic activity/Vol] 26 U/L Normal 0-40 [facility]; [facility] Work Phone: Bilirubin [Mass/Vol] 0.7 mg/dL Normal 0.0-1.2 [facility] Internal Medicine; [facility] Medicine Work Phone: Calcium [Mass/Vol] 9.3 mg/dL Normal 8.6-10.[address] [facility] Internal Medicine; [facility] Work Phone: Chloride [Moles/Vol] 104 mmol/L Normal 97-108 [facility] Internal Medicine; [facility] Work Phone: CO2 [Moles/Vol] 24 mmol/L Normal 19-28 [facility]; [facility] Work Phone: Creatinine [Mass/Vol] 1.15 mg/dL Normal 0.76-1.27 [facility]; [facility] Work Phone: GFR/1.73 sq M.predicted among blacks CKD-EPI (S/P/Bld) [Vol rate/Area] 74 mL/min/1.73 Normal [facility]; [facility] Work Phone: GFR/1.73 sq M.predicted among non-blacks CKD-EPI (S/P/Bld) [Vol rate/Area] 64 mL/min/1.73 Normal [facility]; [facility] Work Phone: Globulin (S) [Mass/Vol] 2.8 g/dL Normal 1.5-4.5 [facility]; [facility] Work Phone: Glucose [Mass/Vol] 96 mg/dL Normal 65-[address] [facility]; [facility] Work Phone: Potassium [Moles/Vol] 4.2 mmol/L Normal 3.5-5.2 [facility] [facility] Internal Medicine; [facility] Work Phone: Protein [Mass/Vol] 7.0 g/dL Normal 6.0-8.[address] [facility] Internal Medicine; [facility] Work Phone: Sodium [Moles/Vol] 144 mmol/L Normal 134-[address] [facility] Internal Medicine; [facility] Work Phone: Urea nitrogen [Mass/Vol] 23 mg/dL Normal 8-27 [facility] Internal Medicine; [facility] Work Phone: Urea nitrogen/Creatinine [Mass ratio] 20 mg/mg Normal 10-22 [facility] Internal Medicine; [facility] Work Phone: PSA (PROSTATE SPECIFIC ANTIG EN) (V76.44)Ordered By: Nutter Up on 10-07-2013 Prostate specific Ag [Mass/Vol] 5.3 ng/mL Abnormal 0.0-4.0 [facility]; [facility] Work Phone: URINALYSIS, W/ MICRO ([id number]) Ordered By: Nutter Up on 10-07-2013 Appearance (U) Clear Normal Comprehens [facility] Internal Medicine; [facility] Work Phone: Bilirubin Ql (U) Negative Normal Comprehe nsive Internal Medicine; [facility] Internal Medicine Work Phone: Color (U) Yellow Normal [facility]; [facility] Work Phone: Glucose Ql (U) Negative Normal Comprehens [facility] Internal Medicine; [facility] Work Phone: Hemoglobin Ql (U) Negative Normal Compreh ensive Internal Medicine; [facility] Internal Medicine Work Phone: Ketones Ql [...] Internal Medicine Work Phone: Vitamin D Hydroxy ([id number])Ord ered By: Nutter Up on 10-07-2013 25-hydroxyvitamin D [Mass/Vol] 43.1 ng/mL Normal 30.0-100.0 [facility]; [facility] Work Phone: CBC WITH MANUAL DIFF ([id number]) Ordered By: Nutter Up on 06-08-2013 Basophils (Bld) [#/Vol] 0.1 10*3/uL [...] MCHC (RBC) [Mass/Vol] 33.6 g/dL Normal 31.5-35.7 [facility] prehensive Internal Medicine; [facility] Work Phone: MCV (RBC) [Entitic vol] 87 fL Normal 79-97 [facility]; [facility] Work Phone: Monocytes (Bld) [#/Vol] 0.8 10*3/uL Normal 0.1-0.9 [facility]; [facility] Work Phone: Monocytes/100 WBC (Bld) 12 % Normal 4-12 [facility]; [facility] Work Phone: Neutrophils (Bld) [#/Vol] 4.2 10*3/uL Normal 1.4-7.0 [facility]; [facility] Work Phone: Neutrophils/100 WBC (Bld) 58 % Normal 40-74 [facility]; [facility] Work Phone: Platelets (Bld) [#/Vol] 272 10*3/uL Normal 155-379 [facility]; [facility] Work Phone: RBC (Bld) [#/Vol] 4.89 10*6/uL Normal 4.14-5.80 [facility] ehensive Internal Medicine; [facility] Work Phone: WBC (Bld) [#/Vol] 7.2 10*3/uL Normal 3.4-10.8 Compre [facility] Internal Medicine; [facility] Work Phone: LIPID PANEL ([id number])Ordered B y: Nutter Up on 06-08-2013 Cholesterol [Mass/Vol] 243 mg/dL Abnormal 100-199 [facility]; [facility] Work Phone: [...] in VLDL [Mass/Vol] 49 mg/dL Abnormal 5-40 [facility] Internal Medicine; [facility] Work Phone: Triglyceride [Mass/Vol] 245 mg/dL Abnormal 0-149 [facility]; [facility] Work Phone: METABOLIC PANEL, COMPREHENSI VE ([id number])Ordered By: Nutter Up on 06-08-2013 Albumin [Mass/Vol] 4.2 g/dL Normal 3.5-4.[address] [facility] Internal Medicine; [facility] Work Phone: Albumin/Globulin [Mass ratio] 1.5 {ratio} Normal 1.1-2.5 [facility] Internal Medicine; [facility] Work Phone: ALP [Catalytic activity/Vol] 84 U/L Normal 39-117 [facility] Internal Medicine; [facility] Work Phone: ALT [Catalytic activity/Vol] 20 U/L Normal 0-44 [facility] Internal Medicine; [facility] Work Phone: AST [Catalytic activity/Vol] 18 U/L Normal 0-40 [facility] Internal Medicine; [facility] Work Phone: Bilirubin [Mass/Vol] 0.9 mg/dL Normal 0.0-1.2 [facility]; [facility] Work Phone: Calcium [Mass/Vol] 9.2 mg/dL Normal 8.6-10.[address] [facility] Internal Medicine; [facility] Work Phone: Chloride [Moles/Vol] 102 mmol/L Normal 97-108 [facility]; [facility] Work Phone: CO2 [Moles/Vol] 25 mmol/L Normal 19-28 [facility] Internal Medicine; [facility] Internal Medicine Work Phone: Creatinine [Mass/Vol] 1.13 mg/dL Normal 0.76-1.27 [facility]; [facility] Internal Medicine Work Phone: GFR/1.73 sq [...] Phone: Glucose [Mass/Vol] 91 mg/dL Normal 65-99 [facility]; [facility] Work Phone: Potassium [Moles/Vol] 3.8 mmol/L Normal 3.5-5.2 [facility] prehensive Internal Medicine; [facility] Work Phone: Protein [Mass/Vol] 7.0 g/dL Normal 6.0-8.[address] [facility] Internal Medicine; [facility] Work Phone: Sodium [Moles/Vol] 141 mmol/L Normal 134-[address] [facility] Internal Medicine; [facility] Work Phone: Urea nitrogen [Mass/Vol] 16 mg/dL Normal 8-27 [facility] Internal Medicine; [facility] Work Phone: Urea nitrogen/Creatinine [Mass ratio] 14 mg/mg Normal 10-22 [facility] Internal Medicine; [facility] Work Phone: TSH ([id number])Ordered By: Holli m Healthcare Educator on 06-08-2013 TSH Qn 1.830 {uIU/mL} Normal 0.450-4.50 0 [facility] Internal Medicine; [facility] Work Phone: Vitamin D Hydroxy ([phone])Ord ered By: Nutter Up on 06-08-2013 25-hydroxyvitamin D [Mass/Vol] 45.6 ng/mL Normal 30.0-100.0 [facility] Internal Medicine; [facility] Work Phone: CBC WITH MANUAL DIFF ([id number]) Ordered By: Nutter Up on 02-15-2013 Basophils (Bld) [#/Vol] 0.0 10*3/uL [...] MCHC (RBC) [Mass/Vol] 34.3 g/dL Normal 31.5-35.7 [facility] prehensive Internal Medicine; [facility] [...] (Bld) [#/Vol] 5.8 10*3/uL Normal 3.4-10.8 Compre [facility] Internal Medicine; [facility] Work Phone: LIPID PANEL ([id number])Ordered B y: Nutter Up on 02-15-2013 Cholesterol [Mass/Vol] 263 mg/dL Abnormal [...] in VLDL [Mass/Vol] 39 mg/dL Normal 5-40 [facility] Internal Medicine; [facility] Work Phone: Triglyceride [Mass/Vol] 197 mg/dL Abnormal 0-149 [facility]; [facility] Work Phone: METABOLIC PANEL, COMPREHENSI VE ([phone])Ordered By: Nutter Up on 02-15-2013 Albumin [Mass/Vol] 4.4 g/dL Normal 3.5-4.[address] [facility] Internal Medicine; [facility] Work Phone: Albumin/Globulin [Mass ratio] 1.7 {ratio} Normal 1.1-2.5 [facility] Internal Medicine; [facility] Work Phone: ALP [Catalytic activity/Vol] 78 U/L Normal 44-103 [facility] Internal Medicine; [facility] Work Phone: ALT [Catalytic activity/Vol] 12 U/L Normal 0-44 [facility] Internal Medicine; [facility] Work Phone: AST [Catalytic activity/Vol] 14 U/L Normal 0-40 [facility] Internal Medicine; [facility] Work Phone: Bilirubin [Mass/Vol] 1.0 mg/dL Normal 0.0-1.2 [facility]; [facility] Work Phone: Calcium [Mass/Vol] 9.3 mg/dL Normal 8.6-10.[address] [facility] Internal Medicine; [facility] Work Phone: Chloride [Moles/Vol] 101 mmol/L Normal 97-108 [facility]; [facility] Work Phone: CO2 [Moles/Vol] 24 mmol/L Normal 19-28 [facility] Internal Medicine; [facility] Work Phone: Creatinine [Mass/Vol] 1.07 mg/dL Normal 0.76-1.27 [facility] Internal Medicine; [facility] Work Phone: GFR/1.73 sq M.predicted among blacks CKD-EPI (S/P/Bld) [Vol rate/Area] 81 mL/min/1.73 Normal [facility] Internal Medicine; [facility] Work Phone: GFR/1.73 sq M.predicted among non-blacks CKD-EPI (S/P/Bld) [Vol rate/Area] 70 mL/min/1.73 Normal [facility]; [facility] Work Phone: Globulin (S) [Mass/Vol] 2.6 g/dL Normal 1.5-4.5 [facility]; [facility] Work Phone: Glucose [Mass/Vol] 84 mg/dL Normal 65-[address] [facility] Internal Medicine; [facility] Work Phone: Potassium [Moles/Vol] 4.2 mmol/L Normal 3.5-5.2 [facility] prehensive Internal Medicine; [facility] Work Phone: Protein [Mass/Vol] 7.0 g/dL Normal 6.0-8.[address] [facility] Internal Medicine; [facility] Work Phone: Sodium [Moles/Vol] 141 mmol/L Normal 134-[address] [facility] Internal Medicine; [facility] Work Phone: Urea nitrogen [Mass/Vol] 15 mg/dL Normal 8-27 [facility] Internal Medicine; [facility] Work Phone: Urea nitrogen/Creatinine [Mass ratio] 14 mg/mg Normal 10-22 [facility] Internal Medicine; [facility] Work Phone: TSH ([id number])Ordered By: Holli jo Healthcare Educator on 02-15-2013 TSH Qn 1.680 {uIU/mL} Normal 0.450-4.50 0 [facility] Internal Medicine; [facility] Work Phone: Vitamin D Hydroxy ([id number])Ord ered By: Nutter Up on 02-15-2013 25-hydroxyvitamin D [Mass/Vol] 51.0 ng/mL Normal 30.0-100.0 [facility] Internal Medicine; [facility] Work Phone: Replaced Document: Caleb Crystal LEANDER Friedman 01-25-2013 Pulse (Heart Rate) 409 ms Invalid Interpretation Code [facility] Work Phone: Lab Report: Ordered by Dr. Jani doshi 10-14-2012 Cholesterol 229 mg/dL Invalid Interpretation Code [facility] [employer] Work Phone: HDL Cholesterol 35 mg/dL Invalid Interpretation Code [facility] [employer] Work Phone: LDL Cholesterol 155 mg/dL Invalid Interpretation Code [facility] [employer] Work Phone: Triglyceride 195 mg/dL Invalid Interpretation Code [facility] [employer] Work Phone: very low density lipoproteins 39 mg/dL Invalid Interpretation Code [facility] [employer] Work Phone: LIPID PANEL ([id number])Ordered B y: Nutter Up on 10-13-2012 Cholesterol [Mass/Vol] 229 mg/dL Abnormal [...] doshi 10-13-2012 Albumin 4.2 g/dL Normal 3.5-4.8 [facility] [employer] Work Phone: Albumin/Globulin Ratio 1.8 {ratio} Normal 1.1-2.5 [facility] [employer] Work Phone: Protein 6.6 g/dL Normal 6.0-8.5 [facility] [employer] Work Phone: Globulin 2.4 g/dL Invalid Interpretation Code [facility] [employer] Work Phone: METABOLIC PANEL, COMPREHENSI VE ([id number])Ordered By: Nutter Up on 10-13-2012 ALP [Catalytic activity/Vol] 73 U/L Normal 25-160 [facility]; [facility] Work Phone: ALT [Catalytic activity/Vol] 12 U/L Normal 0-44 [facility]; [facility] Work Phone: AST [Catalytic activity/Vol] 17 U/L Normal 0-40 [facility] Internal Medicine; [facility] Work Phone: Bilirubin [Mass/Vol] 0.9 mg/dL Normal 0.0-1.2 [facility]; [facility] Work Phone: Calcium [Mass/Vol] 8.8 mg/dL Normal 8.6-10.[address] [facility] Internal Medicine; [facility] Work Phone: Chloride [Moles/Vol] 107 mmol/L Normal 97-108 [facility]; [facility] Work Phone: CO2 [Moles/Vol] 21 mmol/L Normal 20-32 [facility] Internal Medicine; [facility] Work Phone: Creatinine [Mass/Vol] 1.19 mg/dL Normal 0.76-1.27 [facility] Internal Medicine; [facility] Work Phone: GFR/1.73 sq M.predicted among blacks CKD-EPI (S/P/Bld) [Vol rate/Area] 71 mL/min/1.73 Normal [facility] Internal Medicine; [facility] Work Phone: GFR/1.73 sq M.predicted among non-blacks CKD-EPI (S/P/Bld) [Vol rate/Area] 62 mL/min/1.73 Normal [facility]; [facility] Work Phone: Globulin (S) [Mass/Vol] 2.4 g/dL Normal 1.5-4.5 [facility]; [facility] Work Phone: Glucose [Mass/Vol] 97 mg/dL Normal 65-[address] [facility] Internal Medicine; [facility] Work Phone: Potassium [Moles/Vol] 4.0 mmol/L Normal 3.5-5.2 [facility] prehensive Internal Medicine; [facility] Work Phone: Sodium [Moles/Vol] 144 mmol/L Normal 134-144 [facility]; [facility] Work Phone: Urea nitrogen [Mass/Vol] 23 mg/dL Normal 8-27 [facility]; [facility] Work Phone: Urea nitrogen/Creatinine [Mass ratio] 19 mg/mg Normal 10-22 [facility]; [facility] Work Phone: PSA (PROSTATE SPECIFIC ANTIG EN) (V76.44)Ordered By: Nutter Up on 10-13-2012 Prostate specific Ag [Mass/Vol] 1.0 ng/mL Normal 0.0-4.0 [facility] Internal Medicine; [facility] Work Phone: TSH ([id number])Ordered By: Holli m Healthcare Educator on 10-13-2012 TSH Qn 1.070 {uIU/mL} Normal 0.450-4.50 0 [facility] Internal Medicine; [facility] Work Phone: Vitamin D Hydroxy ([phone])Ord ered By: Nutter Up on 10-13-2012 25-hydroxyvitamin D [Mass/Vol] 45.3 ng/mL Normal 30.0-100.0 [facility] Internal Medicine; [facility] Internal Medicine Work Phone: Clinical Lists Update: Prelo sider mechanic 06-15-2012 Erythrocytes (RBC) 4.90 10*6/uL Invalid Interpretation Code [facility] Work Phone: MCH 29.4 pg Invalid Interpretation Code [facility] Work Phone: MCHC mass conc (RBC) 34.0 % Invalid Interpretation Code [facility] Work Phone: MCV 86.5 fL Invalid Interpretation Code [facility] Work Phone: KHANH (ANTINUCLEAR ANTIBODY) ( [phone])Ordered By: Nutter Up on 03-19-2012 Nuclear Ab Ql (S) Negative Normal [facility]; [facility] Work Phone: C-REACTIVE PROTEIN ([id number])Or dered By: Nutter Up on 03-19-2012 CRP [Mass/Vol] 3.9 mg/L Normal 0.0-4.9 Com[facility] Internal Medicine; [facility] Work Phone: RHEUMATOID FACTOR-QUANT ([phone])Ordered By: Nutter Up on 03-19-2012 Rheumatoid factor Qn 10.2 [IU]/mL Normal 0.0-13.9 [facility]; [facility] Work Phone: SED RATE ERYTHROCYTE ([id number]) Ordered By: Nutter Up on 03-19-2012 ESR (Bld) [Velocity] 15 mm/h Normal 0-30 Comp rehensive Internal Medicine; [facility] Work Phone: Uric Acid Blood ([id number])Order ed By: Nutter Up on 03-19-2012 Urate [Mass/Vol] 7.5 mg/dL Normal 3.7-8.6 Comprehe nsive Internal Medicine; [facility] Work Phone: VITAMIN B-12 (CYANOCOBALAMIN ) ([id number])Ordered By: Nutter Up on 03-19-2012 Cobalamin (Vitamin B12) [Mass/Vol] 448 pg/mL Normal 211-946 [facility]; [facility] Work Phone: CBC WITH MANUAL DIFF ([id number]) Ordered By: Nutter Up on 03-02-2012 Basophils (Bld) [#/Vol] 0.0 10*3/uL [...] MCHC (RBC) [Mass/Vol] 34.5 g/dL Normal 31.5-35.7 [facility] prehensive Internal Medicine; [facility] [...] RBC (Bld) [#/Vol] 4.42 10*6/uL [facility].14[facility] Work Phone: WBC (Bld) [#/Vol] 5.3 10*3/uL Normal 4.0-10.5 [facility]; [facility] Work Phone: LIPID PANEL ([id number])Ordered B y: Nutter Up on 03-02-2012 Cholesterol [Mass/Vol] 226 mg/dL Abnormal [...] Medicine Work Phone: METABOLIC PANEL, COMPREHENSI VE ([phone])Ordered By: Nutter Up on 03-02-2012 Albumin [Mass/Vol] 4.3 g/dL Normal 3.6-4.[address] [facility] Internal Medicine; [facility] Work Phone: Albumin/Globulin [Mass ratio] 1.9 {ratio} Normal 1.1-2.5 [facility]; [facility] Work Phone: ALP [Catalytic activity/Vol] 68 U/L Normal 25-160 [facility]; [facility] Work Phone: ALT [Catalytic activity/Vol] 26 U/L Normal 0-55 [facility] Internal Medicine; [facility] Work Phone: AST [Catalytic activity/Vol] 17 U/L Normal 0-40 [facility] Internal Medicine; [facility] Work Phone: Bilirubin [Mass/Vol] 1.3 mg/dL Abnormal 0.0-1.2 [facility]; [facility] Work Phone: Calcium [Mass/Vol] 9.4 mg/dL Normal 8.6-10.[address] [facility] Internal Medicine; [facility] Work Phone: Chloride [Moles/Vol] 104 mmol/L Normal 97-108 [facility] Internal Medicine; [facility] Work Phone: CO2 [Moles/Vol] 26 mmol/L Normal 20-32 [facility] Internal Medicine; [facility] Work Phone: Creatinine [Mass/Vol] 1.07 mg/dL Normal 0.76-1.27 [facility] Internal Medicine; [facility] Internal Medicine Work Phone: GFR/1.73 sq M.predicted among blacks CKD-EPI (S/P/Bld) [Vol rate/Area] 81 mL/min/1.73 Normal [facility] Internal Medicine; [facility] Work Phone: GFR/1.73 sq M.predicted among non-blacks CKD-EPI (S/P/Bld) [Vol rate/Area] 70 mL/min/1.73 Normal [facility]; [facility] Work Phone: Globulin (S) [Mass/Vol] 2.3 g/dL Normal 1.5-4.5 [facility] Internal Medicine; [facility] Internal Medicine Work Phone: Glucose [Mass/Vol] 92 mg/dL Normal 65-[address] [facility] Internal Medicine; [facility] Internal Medicine Work Phone: Potassium [Moles/Vol] 4.2 mmol/L Normal 3.5-5.2 [facility] Internal Medicine; [facility] Internal Medicine Work Phone: Protein [Mass/Vol] 6.6 g/dL Normal 6.0-8.[address] [facility] Internal Medicine; [facility] Internal Medicine Work Phone: Sodium [Moles/Vol] 143 mmol/L Normal 134-[address] [facility] Internal Medicine; [facility] Internal Medicine Work Phone: Urea nitrogen [Mass/Vol] 16 mg/dL Normal 8-27 [facility] Internal Medicine; [facility] Internal Medicine Work Phone: Urea nitrogen/Creatinine [Mass ratio] 15 mg/mg Normal 10-22 [facility] Internal Medicine; [facility] Internal Medicine Work Phone: TSH ([phone])Ordered By: Holli m Healthcare Educator on 03-02-2012 TSH Qn 0.972 {uIU/mL} Normal 0.450-4.50 0 [facility] Work Phone: Vitamin D Hydroxy ([phone])Ord ered By: Nutter Up on 03-02-2012 25-hydroxyvitamin D [Mass/Vol] 44.2 ng/mL Normal 30.0-100.0 [facility] Work Phone: Anti-TPO Antibody ([id number])Ord ered By: Nutter Up on 01-06-2012 TPO Ab Qn 8 [IU]/mL Normal 0-34 [facility] Work Phone: T3, FREE (TRIDOTHYRONINE) ([phone])Ordered By: Nutter Up on 01-06-2012 Free T3 [Mass/Vol] 3.0 pg/mL Normal 2.0-4.[address] [facility] Internal Medicine; [facility] Internal Medicine Work Phone: T4, FREE (THYROXINE) ([id number]) Ordered By: Nutter Up on 01-06-2012 Free T4 [Mass/Vol] 1.08 ng/dL Normal 0.82-1.[address] [facility] Internal Medicine; [facility] Internal Medicine Work Phone: TSH ([id number])Ordered By: Holli m Healthcare Educator on 01-06-2012 TSH Qn 5.160 {uIU/mL} Abnormal 0.450-4.50 0 [facility]; [facility] Work Phone: CBC WITH MANUAL DIFF ([id number]) Ordered By: Nutter Up on 11-24-2011 Basophils (Bld) [#/Vol] 0.0 10*3/uL [...] MCHC (RBC) [Mass/Vol] 34.8 g/dL Normal 31.5-35.7 [facility]; [facility] Work Phone: MCV (RBC) [Entitic vol] 87 fL Normal 79-97 [facility]; [facility] Work Phone: Monocytes (Bld) [#/Vol] 0.4 10*3/uL Normal 0.1-1.0 [facility] Internal Medicine; [facility] Work Phone: Monocytes/100 WBC (Bld) 7 % Normal 4-13 [facility]; [facility] Work Phone: Neutrophils (Bld) [#/Vol] 3.6 10*3/uL Normal 1.8-7.8 [facility] Internal Medicine; [facility] Work Phone: Neutrophils/100 WBC (Bld) 65 % Normal 40-74 [facility] Internal Medicine; [facility] Work Phone: Platelets (Bld) [#/Vol] 240 10*3/uL Normal 140-415 [facility] Internal Medicine; [facility] Work Phone: RBC (Bld) [#/Vol] 4.81 10*6/uL Normal 4.14-5.80 [facility] Work Phone: WBC (Bld) [#/Vol] 5.5 10*3/uL Normal 4.0-10.[address] [facility] Internal Medicine; [facility] Work Phone: FREE TRIDOTHYRONINE (T3) ([phone])Ordered By: Nutter Up on 11-24-2011 Free T3 [Mass/Vol] 2.7 pg/mL Normal 2.0-4.[address] [facility] Internal Medicine; [facility] Work Phone: LIPID PANEL ([id number])Ordered B y: Nutter Up on 11-24-2011 Cholesterol [Mass/Vol] 228 mg/dL Abnormal 100-199 [facility]; [facility] Work [...] Triglyceride [Mass/Vol] 378 mg/dL Abnormal 0-149 [facility]; [facility] Internal Medicine Work Phone: METABOLIC PANEL, COMPREHENSI VE ([id number])Ordered By: Nutter Up on 11-24-2011 Albumin [Mass/Vol] 4.1 g/dL Normal 3.6-4.[address] [facility] Internal Medicine; [facility] Internal Medicine Work Phone: Albumin/Globulin [Mass ratio] 1.6 {ratio} Normal 1.1-2.5 [facility] Internal [facility]; [facility] Work Phone: ALP [Catalytic activity/Vol] 78 U/L Normal 25-160 [facility] Internal Medicine; [facility] Work Phone: ALT [Catalytic activity/Vol] 51 U/L Normal 0-55 [facility]; [facility] Internal Medicine Work Phone: AST [Catalytic activity/Vol] 31 U/L Normal 0-40 [facility]; Comprehensive Internal Medicine Work Phone: Bilirubin [Mass/Vol] 1.3 mg/dL Abnormal 0.0-1.2 [facility] Internal Medicine; [facility] Internal Medicine Work Phone: Calcium [Mass/Vol] 8.7 mg/dL Normal 8.6-10.2 [facility] Internal Medicine; [facility] Internal Medicine Work Phone: Chloride [Moles/Vol] 105 mmol/L Normal 97-108 [facility]; [facility] Internal Medicine Work Phone: CO2 [Moles/Vol] 22 mmol/L Normal 20-32 [facility] Internal Medicine; [facility] Work Phone: Creatinine [Mass/Vol] 1.05 mg/dL Normal 0.76-1.27 [facility] Internal Medicine; [facility] Work Phone: GFR/1.73 sq M.predicted among blacks CKD-EPI (S/P/Bld) [Vol rate/Area] 83 mL/min/1.73 Normal [facility] Internal Medicine; [facility] Work Phone: GFR/1.73 sq M.predicted among non-blacks CKD-EPI (S/P/Bld) [Vol rate/Area] 72 mL/min/1.73 Normal [facility] Internal Medicine; [facility] Work Phone: Globulin (S) [Mass/Vol] 2.6 g/dL Normal 1.5-4.5 [facility] Internal Medicine; [facility] Work Phone: Glucose [Mass/Vol] 92 mg/dL Normal 65-[address] [facility] Internal Medicine; [facility] Work Phone: Potassium [Moles/Vol] 3.6 mmol/L Normal 3.5-5.2 [facility] Internal Medicine; [facility] Work Phone: Protein [Mass/Vol] 6.7 g/dL Normal 6.0-8.[address] [facility] Internal Medicine; [facility] Work Phone: Sodium [Moles/Vol] 141 mmol/L Normal 134-[address] [facility] Internal Medicine; [facility] Work Phone: Urea nitrogen [Mass/Vol] 13 mg/dL Normal 8-27 [facility] Internal Medicine; [facility] Work Phone: Urea nitrogen/Creatinine [Mass ratio] 12 mg/mg Normal 10-22 [facility] Internal Medicine; [facility] Work Phone: MICROSOMAL ANTIBODY ([id number])O rdered By: Nutter Up on 11-24-2011 TPO Ab Qn 10 [IU]/mL Normal 0-34 [facility] Internal Medicine; [facility] Work Phone: THYROXINE FREE ([id number])Ordere d By: Nutter Up on 11-24-2011 Free T4 [Mass/Vol] 0.98 ng/dL Normal 0.82-1.77 Compre hensive Internal Medicine; [facility] Work Phone: TSH (THYROID STIMULATING HOR TIFFANY) ([id number])Ordered By: Nutter Up on 11-24-2011 TSH Qn 4.700 {uIU/mL} Abnormal 0.450-4.50 0 [facility]; [facility] Work Phone: KHANH (ANTINUCLEAR ANTIBODY) ( [id number])Ordered By: Nutter Up on 09-29-2011 Nuclear Ab Ql (S) Negative Normal Compreh ensive Internal Medicine; [facility] Work Phone: C-REACTIVE PROTEIN ([id number])Or dered By: Nutter Up on 09-29-2011 CRP [Mass/Vol] 1.2 mg/L Normal 0.0-4.9 Comprehens brian Internal Medicine; [facility] Work Phone: Potassium Serum ([id number])Order ed By: Nutter Up on 09-29-2011 Potassium [Moles/Vol] 3.8 mmol/L Normal 3.5-5.2 Com prehensive Internal Medicine; [facility] Work Phone: RHEUMATOID FACTOR-QUANT ([phone])Ordered By: Nutter Up on 09-29-2011 Rheumatoid factor Qn 7.2 [IU]/mL Normal 0.0-13.9 Com prehensive Internal Medicine; [facility] Work Phone: SED RATE ERYTHROCYTE ([id number]) Ordered By: Nutter Up on 09-29-2011 ESR (Bld) [Velocity] 9 mm/h Normal 0-30 Comp rehensive Internal Medicine; [facility] Work Phone: TSH ([id number])Ordered By: Holli m [employer] Educator on 09-29-2011 TSH Qn 6.580 {uIU/mL} Abnormal 0.450-4.50 0 [facility]; [facility] Work Phone: Vitamin D Hydroxy ([id number])Ord ered By: Nutter Up on 09-29-2011 25-hydroxyvitamin D [Mass/Vol] 35.2 ng/mL Normal 30.0-100.0 [facility]; [facility] Work Phone: CBC WITH MANUAL DIFF ([id number]) Ordered By: Nutter Up on 05-09-2011 Basophils (Bld) [#/Vol] 0.0 10*3/uL [...] MCHC (RBC) [Mass/Vol] 33.4 g/dL Normal 32.0-36.0 [facility] prehensive Internal Medicine; [facility] Work Phone: MCV (RBC) [Entitic vol] 90 fL Normal 80-98 [facility]; [facility] Work Phone: Monocytes (Bld) [#/Vol] 0.5 10*3/uL Normal 0.1-1.0 [facility]; [facility] Work Phone: Monocytes/100 WBC (Bld) 8 % Normal 4-13 [facility]; [facility] Work Phone: Neutrophils (Bld) [#/Vol] 3.6 10*3/uL Normal 1.8-7.8 [facility]; [facility] Work Phone: Neutrophils/100 WBC (Bld) 58 % Normal 40-74 [facility]; [facility] Work Phone: Platelets (Bld) [#/Vol] 238 10*3/uL Normal 140-415 [facility]; [facility] Work Phone: RBC (Bld) [#/Vol] 4.71 10*6/uL Normal 4.10-5.60 [facility] ehensive Internal Medicine; [facility] Work Phone: WBC (Bld) [#/Vol] 6.3 10*3/uL Normal 4.0-10.5 [facility] Internal Medicine; [facility] Work Phone: LIPID PANEL ([id number])Ordered B y: Nutter Up on 05-09-2011 Cholesterol [Mass/Vol] 247 mg/dL Abnormal 100-199 [facility]; [facility] Work Phone: Cholesterol in HDL [Mass/Vol] 36 mg/dL Abnormal [facility]; [facility] Work Phone: Cholesterol in LDL [Mass/Vol] 162 mg/dL Abnormal 0-99 [facility]; [facility] Work Phone: Cholesterol in LDL/Cholesterol in HDL [Mass ratio] 4.5 {ratio_units} Abnormal 0.0-3.6 [facility] Internal Medicine; [facility] Work Phone: Cholesterol in VLDL [Mass/Vol] 49 mg/dL Abnormal 5-40 [facility] Internal Medicine; [facility] Work Phone: Triglyceride [Mass/Vol] 246 mg/dL Abnormal 0-149 [facility]; [facility] Work Phone: METABOLIC PANEL, COMPREHENSI VE ([id number])Ordered By: Nutter Up on 05-09-2011 Albumin [Mass/Vol] 4.2 g/dL Normal 3.6-4.[address] [facility] Internal Medicine; [facility] Work Phone: Albumin/Globulin [Mass ratio] 1.6 {ratio} Normal 1.1-2.5 [facility] Internal Medicine; [facility] Work Phone: ALP [Catalytic activity/Vol] 67 U/L Normal 25-160 [facility] Internal Medicine; [facility] Work Phone: ALT [Catalytic activity/Vol] 17 U/L Normal 0-55 [facility] Internal Medicine; [facility] Work Phone: AST [Catalytic activity/Vol] 16 U/L Normal 0-40 [facility] Internal Medicine; [facility] Work Phone: Bilirubin [Mass/Vol] 0.9 mg/dL Normal 0.0-1.2 [facility] rehensive Internal Medicine; [facility] Work Phone: Calcium [Mass/Vol] 9.2 mg/dL Normal 8.6-10.[address] [facility] Internal Medicine; [facility] Work Phone: Chloride [Moles/Vol] 103 mmol/L Normal 97-108 Comp rehensive Internal Medicine; [facility] Work Phone: CO2 [Moles/Vol] 27 mmol/L Normal 20-32 [facility] Internal Medicine; [facility] Work Phone: Creatinine [Mass/Vol] 1.20 mg/dL Normal 0.76-1.27 [facility] prehensive Internal Medicine; [facility] [...] Phone: Glucose [Mass/Vol] 88 mg/dL Normal 65-99 [facility]; [facility] Work Phone: Potassium [Moles/Vol] 3.7 mmol/L Normal 3.5-5.2 [facility] prehensive Internal Medicine; [facility] Work Phone: Protein [Mass/Vol] 6.8 g/dL Normal 6.0-8.[address] [facility] Internal Medicine; [facility] Work Phone: Sodium [Moles/Vol] 143 mmol/L Normal 135-[address] [facility] Internal Medicine; [facility] Work Phone: Urea nitrogen [Mass/Vol] 19 mg/dL Normal 8-27 [facility]; [facility] Work Phone: Urea nitrogen/Creatinine [Mass ratio] 16 mg/mg Normal 10-22 [facility]; [facility] Work Phone: Vitamin D Hydroxy ([id number])Ord ered By: Nutter Up on 05-09-2011 25-hydroxyvitamin D [Mass/Vol] 34.6 ng/mL Normal 30.0-100.0 [facility] Internal Medicine; [facility] Work Phone: HEPATIC FUNCTION PANEL ([phone])Ordered By: Nutter Up on 01-07-2011 Bilirubin.direct [Mass/Vol] 0.22 mg/dL Normal 0.00-0.40 [facility]; [facility] Work Phone: LIPID PANEL ([id number])Ordered B y: Nutter Up on 01-07-2011 Cholesterol [Mass/Vol] 234 mg/dL Abnormal [...] Medicine Work Phone: METABOLIC PANEL, COMPREHENSI VE ([id number])Ordered By: Nutter Up on 01-07-2011 Albumin [Mass/Vol] 4.1 g/dL Normal 3.6-4.8 [facility] Internal Medicine; [facility] Work Phone: [...] Bilirubin [Mass/Vol] 1.1 mg/dL Normal 0.0-1.2 Comp [facility] Internal Medicine; [facility] Work Phone: Calcium [Mass/Vol] 8.8 mg/dL Normal 8.6-10.2 [facility] Internal Medicine; [facility] Work Phone: Chloride [Moles/Vol] 104 mmol/L Normal 97-108 [facility]; [facility] Work Phone: CO2 [Moles/Vol] 24 mmol/L Normal 20-32 [facility] Internal Medicine; [facility] Work Phone: Creatinine [Mass/Vol] 1.14 mg/dL Normal 0.76-1.27 [facility] Internal Medicine; [facility] Work Phone: GFR/1.73 sq M.predicted among blacks MDRD (S/P/Bld) [Vol rate/Area] 76 mL/min/{1.73_m2} Normal [facility]; [facility] Work Phone: GFR/1.73 sq M.predicted among non-blacks CKD-EPI (S/P/Bld) [Vol rate/Area] 66 mL/min/1.73 Normal [facility] Internal Medicine; [facility] Work Phone: Globulin (S) [Mass/Vol] 2.6 g/dL Normal 1.5-4.5 [facility]; [facility] Work Phone: Glucose [Mass/Vol] 93 mg/dL Normal 65-[address] [facility] Internal Medicine; [facility] Work Phone: Potassium [Moles/Vol] 3.9 mmol/L Normal 3.5-5.2 [facility] Internal Medicine; [facility] Work Phone: Protein [Mass/Vol] 6.7 g/dL Normal 6.0-8.[address] [facility] Internal Medicine; [facility] Work Phone: Sodium [Moles/Vol] 141 mmol/L Normal 135-[address] [facility] Internal Medicine; [facility] Work Phone: Urea nitrogen [Mass/Vol] 25 mg/dL Normal 8-27 [facility] Internal Medicine; [facility] Work Phone: Urea nitrogen/Creatinine [Mass ratio] 22 mg/mg Normal 10-22 [facility] Internal Medicine; [facility] Work Phone: Vitamin D Hydroxy ([id number])Ord ered By: Nutter Up on 01-07-2011 1,25-dihydroxyvitamin D3 [Mass/Vol] 30.3 ng/mL Abnormal 32.0-100.0 [facility]; [facility] Work Phone: PAYTON CULTURE-OTHER ([id number])Ord ered By: Nutter Up on 08-28-2010 Bacteria identified Respiratory culture Nom (Unsp spec) Final report Normal [facility]; [facility] Work Phone: Bacteria identified Respiratory culture Nom (Unsp spec) RRF Normal [facility]; [facility] Work Phone: Rapid Strep Test, Office ([phone])Ordered By: Josi Holloway on 08-28-2010 S. pyogenes Ag EIA Ql (Throat) Negative Normal [facility]; [facility] Work Phone: LIPID PANEL ([id number])Ordered B y: Nutter Up on 07-09-2010 Cholesterol [Mass/Vol] 263 mg/dL Abnormal [...] Medicine Work Phone: METABOLIC PANEL, COMPREHENSI VE ([phone])Ordered By: Nutter Up on 07-09-2010 Albumin [Mass/Vol] 4.3 g/dL Normal 3.6-4.8 Compre hensive Internal Medicine; [facility] Work Phone: Albumin/Globulin [Mass ratio] 1.6 {ratio} Normal 1.1-2.5 [facility] Internal Medicine; [facility] Work Phone: ALP [Catalytic activity/Vol] 70 U/L Normal 25-160 [facility] Internal Medicine; [facility] Work Phone: ALT [Catalytic activity/Vol] 13 U/L Normal 0-55 [facility] Internal Medicine; [facility] Work Phone: AST [Catalytic activity/Vol] 13 U/L Normal 0-40 [facility] Internal Medicine; [facility] Work Phone: Bilirubin [Mass/Vol] 0.9 mg/dL Normal 0.0-1.2 [facility] rehensive Internal Medicine; [facility] Work Phone: Calcium [Mass/Vol] 9.1 mg/dL Normal 8.6-10.2 [facility] Internal Medicine; [facility] Work Phone: Chloride [Moles/Vol] 104 mmol/L Normal 97-108 Comp rehensive Internal Medicine; [facility] Work Phone: CO2 [Moles/Vol] 24 mmol/L Normal 20-32 [facility] Internal Medicine; [facility] Work Phone: Creatinine [Mass/Vol] 1.11 mg/dL Normal 0.76-1.27 [facility]; [facility] Internal Medicine Work Phone: GFR/1.73 sq M.predicted among blacks MDRD (S/P/Bld) [Vol rate/Area] mL/min/{1.73_m2} Normal [facility] Internal Medicine; [facility] Work Phone: GFR/1.73 sq M.predicted MDRD (S/P/Bld) [Vol rate/Area] mL/min/{1.73_m2} Normal [facility] Internal Medicine; [facility] Internal Medicine Work Phone: Globulin (S) [Mass/Vol] 2.7 g/dL Normal 1.5-4.5 [facility] Internal Medicine; [facility] Internal Medicine Work Phone: Glucose [Mass/Vol] 93 mg/dL Normal 65-[address] [facility] Internal Medicine; [facility] Work Phone: Potassium [Moles/Vol] 3.7 mmol/L Normal 3.5-5.2 [facility] Internal Medicine; [facility] Work Phone: Protein [Mass/Vol] 7.0 g/dL Normal 6.0-8.[address] [facility] Internal Medicine; [facility] Work Phone: Sodium [Moles/Vol] 143 mmol/L Normal 135-[address] [facility] Internal Medicine; [facility] Work Phone: Urea nitrogen [Mass/Vol] 21 mg/dL Normal 8-27 [facility] Internal Medicine; [facility] Work Phone: Urea nitrogen/Creatinine [Mass ratio] 19 mg/mg Normal 10-22 [facility] Internal Medicine; [facility] Work Phone: PSA (PROSTATE SPECIFIC ANTIG EN) (V76.44)Ordered By: Nutter Up on 07-09-2010 Prostate specific Ag [Mass/Vol] 0.8 ng/mL Normal 0.0-4.0 [facility] Internal Medicine; [facility] Work Phone: Vitamin D Hydroxy ([id number])Ord ered By: Nutter Up on 07-09-2010 1,25-dihydroxyvitamin D3 [Mass/Vol] 20.2 ng/mL Abnormal 32.0-100.0 [facility] Internal Medicine; [facility] Work Phone: LIPID PANEL ([id number])Ordered B y: Nutter Up on 11-14-2009 Cholesterol [Mass/Vol] 201 mg/dL Abnormal 100-199 [facility] Internal Medicine; [facility] Work Phone: Cholesterol in HDL [Mass/Vol] 37 mg/dL Abnormal [facility]; [facility] Work Phone: Cholesterol in LDL [Mass/Vol] 125 mg/dL Abnormal 0-99 [facility] Internal Medicine; [facility] Work Phone: Cholesterol in LDL/Cholesterol in HDL [Mass ratio] 3.4 {ratio_units} Normal 0.0-3.6 [facility]; [facility] Work Phone: Cholesterol in VLDL [Mass/Vol] 39 mg/dL Normal 5-40 [facility] Internal Medicine; [facility] Work Phone: Triglyceride [Mass/Vol] 194 mg/dL Abnormal 0-149 [facility] Internal Medicine; [facility] Internal Medicine Work Phone: METABOLIC PANEL, COMPREHENSI VE ([phone])Ordered By: Nutter Up on 11-14-2009 Albumin [Mass/Vol] 4.1 g/dL Normal 3.6-4.[address] [facility] Internal Medicine; [facility] Internal Medicine Work Phone: Albumin/Globulin [Mass ratio] 1.5 {ratio} Normal 1.1-2.5 [facility] Internal Medicine; [facility] Internal Medicine Work Phone: ALP [Catalytic activity/Vol] 71 U/L Normal 25-160 [facility] Internal Medicine; [facility] Internal Medicine Work Phone: ALT [Catalytic activity/Vol] 14 U/L Normal 0-55 [facility] Internal Medicine; [facility] Work Phone: AST [Catalytic activity/Vol] 12 U/L Normal 0-40 [facility] Internal Medicine; [facility] Work Phone: Bilirubin [Mass/Vol] 1.3 mg/dL Abnormal 0.0-1.2 [facility]; [facility] Internal Medicine Work Phone: Calcium [Mass/Vol] 8.8 mg/dL Normal 8.6-10.[address] [facility] Internal Medicine; [facility] Internal Medicine Work Phone: Chloride [Moles/Vol] 104 mmol/L Normal 97-108 [facility]; [facility] Work Phone: CO2 [Moles/Vol] 24 mmol/L Normal 20-32 [facility] Internal Medicine; [facility] Work Phone: Creatinine [Mass/Vol] 1.23 mg/dL Normal 0.76-1.27 [facility] Internal Medicine; [facility] Internal Medicine Work Phone: GFR/1.73 sq [...] Glucose [Mass/Vol] 97 mg/dL Normal 65-99 [facility]; [facility] Work Phone: Potassium [Moles/Vol] 3.4 mmol/L Abnormal 3.5-5.2 Com prehensive Internal Medicine; [facility] Work Phone: Protein [Mass/Vol] 6.9 g/dL Normal 6.0-8.5 [facility]; [facility] Work Phone: Sodium [Moles/Vol] 142 mmol/L Normal 135-145 [facility] Internal Medicine; [facility] Work Phone: Urea nitrogen [Mass/Vol] 21 mg/dL Normal 5-26 [facility]; [facility] Work Phone: Urea nitrogen/Creatinine [Mass ratio] 17 mg/mg Normal 8-27 [facility]; [facility] Work Phone: URINE PAYTON CULTURE-MELVIN COL C OUNT ([id number])Ordered By: Sherron Mercer on 05-22-2009 Bacteria identified Cx Nom (U) Final report Normal [facility]; [facility] Work Phone: Bacteria identified Cx Nom (U) [id number] Normal [facility]; [facility] Work Phone: Urinalysis, Office ([phone])Or dered By: Kanika Martinez on 05-22-2009 Bilirubin [...] Medicine Work Phone: CBC WITH MANUAL DIFF ([id number]) Ordered By: Sherron Mercer on 05-14-2009 Basophils [...] MCHC (RBC) [Mass/Vol] 34.2 g/dL Normal 32.0-36.0 [facility] prehensive Internal Medicine; [facility] Work Phone: MCV (RBC) [Entitic vol] 90 fL Normal 80-98 [facility]; [facility] Work Phone: Monocytes (Bld) [#/Vol] 0.5 10*3/uL Normal 0.1-1.0 [facility]; [facility] Work Phone: Monocytes/100 WBC (Bld) 9 % Normal 4-13 [facility]; [facility] Work Phone: Neutrophils (Bld) [#/Vol] 3.2 10*3/uL Normal 1.8-7.8 [facility]; [facility] Work Phone: Neutrophils/100 WBC (Bld) 57 % Normal 40-74 [facility]; [facility] Work Phone: Platelets (Bld) [#/Vol] 251 10*3/uL Normal 140-415 [facility]; [facility] Work Phone: RBC (Bld) [#/Vol] 4.83 10*6/uL Normal 4.10-5.60 [facility] ehensive Internal Medicine; [facility] Work Phone: WBC (Bld) [#/Vol] 5.7 10*3/uL Normal 4.0-10.5 [facility]; [facility] Work Phone: HEPATIC FUNCTION PANEL ([phone])Ordered By: on 05-14-2009 Bilirubin.direct [Mass/Vol] 0.25 mg/dL Normal 0.00-0.40 [facility]; [facility] Work Phone: LIPID PANEL ([id number])Ordered B y: on 05-14-2009 Cholesterol [Mass/Vol] 221 [...] Triglyceride [Mass/Vol] 195 mg/dL Abnormal 0-149 [facility]; [facility] Work Phone: METABOLIC PANEL, COMPREHENSI VE ([id number])Ordered By: on 05-14-2009 Albumin [Mass/Vol] 4.2 g/dL Normal 3.6-4.[address] [facility] Internal Medicine; [facility] Work [...] Phone: Bilirubin [Mass/Vol] 1.3 mg/dL Abnormal 0.1-1.2 [facility]; [facility] Work Phone: Calcium [Mass/Vol] 9.4 mg/dL Normal 8.5-10.[address] [facility] Internal Medicine; [facility] Internal Medicine Work Phone: Chloride [Moles/Vol] 102 mmol/L Normal 97-108 [facility] Internal Medicine; [facility] Work Phone: CO2 [Moles/Vol] 26 mmol/L Normal 20-32 [facility] Internal Medicine; [facility] Internal Medicine Work Phone: Creatinine [Mass/Vol] 1.15 mg/dL Normal 0.76-1.27 [facility] Internal Medicine; [facility] Internal Medicine Work Phone: GFR/1.73 sq M.predicted among blacks MDRD (S/P/Bld) [Vol rate/Area] mL/min/{1.73_m2} Normal [facility] Internal Medicine; [facility] Work Phone: GFR/1.73 sq M.predicted MDRD (S/P/Bld) [Vol rate/Area] mL/min/{1.73_m2} Normal [facility] Internal Medicine; [facility] Internal Medicine Work Phone: Globulin (S) [Mass/Vol] 3.0 g/dL Normal 1.5-4.5 [facility]; [facility] Internal Medicine Work Phone: Glucose [Mass/Vol] 84 mg/dL Normal 65-[address] [facility] Internal Medicine; [facility] Internal Medicine Work Phone: Potassium [Moles/Vol] 3.5 mmol/L Normal 3.5-5.2 [facility] Internal Medicine; [facility] Internal Medicine Work Phone: Protein [Mass/Vol] 7.2 g/dL Normal 6.0-8.[address] [facility] Internal Medicine; [facility] Internal Medicine Work Phone: Sodium [Moles/Vol] 143 mmol/L Normal 135-145 Compre hensive Internal Medicine; [facility] Work Phone: Urea nitrogen [Mass/Vol] 15 mg/dL Normal 5-26 [facility]; [facility] Work Phone: Urea nitrogen/Creatinine [Mass ratio] 13 mg/mg Normal 8-27 [facility]; [facility] Work Phone: URINALYSIS W/O MICRO ([id number]) Ordered By: Sherron Mercer on 05-14-2009 Appearance [...] Medicine Work Phone: CBC WITH MANUAL DIFF ([id number]) Ordered By: Sherron Mercer on 11-03-2008 Basophils [...] (Bld) [Volume fraction] 43.8 % Normal 36.0-50.0 [facility] Internal Medicine; [facility] Work Phone: Hemoglobin (Bld) [Mass/Vol] 15.3 g/dL Normal 12.5-17.0 [facility]; [facility] Work Phone: Lymphocytes (Bld) [#/Vol] 1.6 10*3/uL Normal 0.7-4.5 [facility]; [facility] Work Phone: Lymphocytes/100 WBC (Bld) 26 % Normal 14-46 [facility]; [facility] Work Phone: MCH (RBC) [Entitic mass] 31.6 pg Normal 27.0-34.0 [facility]; [facility] Work Phone: MCHC (RBC) [Mass/Vol] 34.9 g/dL Normal 32.0-36.0 [facility] prehensive Internal Medicine; [facility] [...] PANEL ([id number])Ordered By: Sherron Mercer on 11-03-2008 Bilirubin.direct [Mass/Vol] 0.19 mg/dL Normal 0.00-0.40 [facility]; [facility] Work Phone: LIPID PANEL ([id number])Ordered B y: Sherron Fast on 11-03-2008 Cholesterol [...] HDL [Mass ratio] 4.9 {ratio_units} Abnormal 0.0-3.6 [facility]; [facility] Work Phone: Cholesterol in VLDL [Mass/Vol] 67 mg/dL Abnormal 5-40 [facility]; [facility] Work Phone: Triglyceride [Mass/Vol] 336 mg/dL Abnormal 0-149 [facility]; [facility] Work Phone: METABOLIC PANEL, COMPREHENSI VE ([id number])Ordered By: Sherron Mercer on 11-03-2008 Albumin [Mass/Vol] 4.3 g/dL Normal 3.6-4.[address] [facility]; [facility] Work Phone: Albumin/Globulin [Mass ratio] 1.6 {ratio} Normal 1.1-2.5 [facility]; [facility] Work Phone: ALP [Catalytic activity/Vol] 68 U/L Normal 25-160 [facility]; [facility] Work Phone: ALT [Catalytic activity/Vol] 16 U/L Normal 0-55 [facility]; [facility] Work Phone: AST [Catalytic activity/Vol] 20 U/L Normal 0-40 [facility]; [facility] Work Phone: Bilirubin [Mass/Vol] 1.0 mg/dL Normal 0.1-1.2 [facility] rehensive Internal Medicine; [facility] Work Phone: Calcium [Mass/Vol] 9.3 mg/dL Normal 8.5-10.[address] [facility] Internal [facility]; [facility] Work Phone: Chloride [Moles/Vol] 101 mmol/L Normal 97-108 [facility] Work Phone: CO2 [Moles/Vol] 28 mmol/L Normal 20-32 [facility] Internal Medicine; [facility] Medicine Work Phone: Creatinine [Mass/Vol] 1.10 mg/dL Normal 0.76-1.27 [facility] prehensive Internal Medicine; [facility] [...] Phone: Glucose [Mass/Vol] 85 mg/dL Normal 65-[address] [facility] Internal Medicine; [facility] Medicine Work Phone: Potassium [Moles/Vol] 3.9 mmol/L Normal 3.5-5.2 [facility] prehensive Internal Medicine; [facility] Work Phone: Protein [Mass/Vol] 7.0 g/dL Normal 6.0-8.[address] [facility]; [facility] Work Phone: Sodium [Moles/Vol] 141 mmol/L Normal 135-[address] [facility]; [facility] Work Phone: Urea nitrogen [Mass/Vol] 17 mg/dL Normal 5-26 [facility]; [facility] Work Phone: Urea nitrogen/Creatinine [Mass ratio] 15 mg/mg Normal 8-27 [facility]; [facility] Work Phone: TSH ([id number])Ordered By: Sherron Fast on 11-03-2008 TSH Qn 4.082 {uIU/mL} Normal 0.450-4.50 0 [facility]; [facility] Work Phone: HEPATIC FUNCTION PANEL ([id number])Ordered By: Sherron Fast on 08-02-2008 Albumin [Mass/Vol] 4.7 g/dL Normal 3.6-4.[address] [facility] Internal Medicine; [facility] Work Phone: ALP [Catalytic [...] Phone: Bilirubin.direct [Mass/Vol] 0.22 mg/dL Normal 0.00-0.40 [facility]; [facility] Work Phone: Protein [Mass/Vol] 7.4 g/dL Normal 6.0-8.[address] [facility]; [facility] Work Phone: LIPID PANEL ([id number])Ordered B y: Sherron Fast on 08-02-2008 Cholesterol [...] [facility] Work Phone: PAYTON CULTURE-OTHER ([id number])Ord ered By: Pamela López on 07-05-2008 Bacteria identified Respiratory culture Nom (Unsp spec) Final report Normal [facility]; [facility] Work Phone: Bacteria identified Respiratory culture Nom (Unsp spec) RRF Normal [facility]; [facility] Work Phone: Rapid Flu ([phone])Ordered By: Pamela López on 07-05-2008 FLUAV Ag IA Ql (Throat) Negative Normal [facility]; [facility] Work Phone: Rapid Strep Test, Office ([phone])Ordered By: Pamela López on 07-05-2008 S. pyogenes Ag EIA Ql (Throat) Negative Normal [facility]; [facility] Work Phone: CBC WITH MANUAL DIFF ([id number]) Ordered By: Sherron Mercer on 04-17-2008 Basophils [...] Lymphocytes/100 WBC (Bld) 25 % Normal 14-46 [facility]; [facility] Work Phone: MCH (RBC) [Entitic mass] 30.7 pg Normal 27.0-34.0 [facility]; [facility] Work Phone: MCHC (RBC) [Mass/Vol] 33.8 g/dL Normal 32.0-36.0 [facility] Internal Medicine; [facility] Work Phone: MCV (RBC) [Entitic vol] 91 fL Normal 80-98 [facility]; [facility] Work Phone: Monocytes (Bld) [#/Vol] 0.6 10*3/uL Normal 0.1-1.0 [facility]; [facility] Work Phone: Monocytes/100 WBC (Bld) 8 % Normal 4-13 [facility]; [facility] Work Phone: Neutrophils (Bld) [#/Vol] 4.7 10*3/uL Normal 1.8-7.8 [facility]; [facility] Work Phone: Neutrophils/100 WBC (Bld) 65 % Normal 40-74 [facility]; [facility] Work Phone: Platelets (Bld) [#/Vol] 246 10*3/uL Normal 140-415 [facility]; [facility] Work Phone: RBC (Bld) [#/Vol] 5.02 10*6/uL Normal 4.10-5.60 [facility] Medicine; [facility] Work Phone: WBC (Bld) [#/Vol] 7.3 10*3/uL Normal 4.0-10.[address] [facility]; [facility] Work Phone: HEPATIC FUNCTION PANEL ([phone] [id number])Ordered By: Sherron Mercer on 04-17-2008 Albumin [Mass/Vol] 4.2 g/dL Normal 3.6-4.[address] [facility] Internal Medicine; [facility] Work Phone: ALP [Catalytic [...] Phone: Protein [Mass/Vol] 7.1 g/dL Normal 6.0-8.5 [facility]; [facility] Work Phone: LIPID PANEL ([id number])Ordered B y: Sherron Mercer on 04-17-2008 Cholesterol [...] 04-17-2008 Calcium [Mass/Vol] 9.4 mg/dL Normal 8.5-10.[address] [facility]; [facility] Work Phone: Chloride [Moles/Vol] 105 mmol/L Normal 97-108 [facility]; [facility] Work Phone: CO2 [Moles/Vol] 23 mmol/L Normal 20-32 [facility] Internal Medicine; [facility] Work Phone: Creatinine [Mass/Vol] 1.20 mg/dL Normal 0.76-1.27 [facility]; [facility] Work Phone: GFR/1.73 sq M.predicted among blacks MDRD (S/P/Bld) [Vol rate/Area] mL/min/{1.73_m2} Normal [facility]; [facility] Work Phone: GFR/1.73 sq M.predicted MDRD (S/P/Bld) [Vol rate/Area] mL/min/{1.73_m2} Normal [facility]; [facility] Work Phone: Glucose [Mass/Vol] 85 mg/dL Normal 65-[address] [facility]; [facility] Work Phone: Potassium [Moles/Vol] 4.2 mmol/L Normal 3.5-5.2 [facility]; [facility] Work Phone: Sodium [Moles/Vol] 146 mmol/L Abnormal 135-[address] [facility]; [facility] Work Phone: Urea nitrogen [Mass/Vol] 19 mg/dL Normal 5-26 [facility]; [facility] Work Phone: Urea nitrogen/Creatinine [Mass ratio] 16 mg/mg Normal 8-27 [facility]; [facility] Work Phone: PSA (PROSTATE SPECIFIC ANTIG EN) (V76.44)Ordered By: Sherron Fast on 04-17-2008 Prostate specific Ag [Mass/Vol] 0.9 ng/mL Normal 0.0-4.0 [facility]; [facility] Work Phone: CBC WITH MANUAL DIFF ([id number]) Ordered By: Sherron Mercer on 01-18-2008 Basophils [...] MCHC (RBC) [Mass/Vol] 33.7 g/dL Normal 32.0-36.0 [facility] prehensive Internal Medicine; [facility] [...] [facility] Work Phone: LIPID PANEL ([id number])Ordered B y: Sherron Fast on 01-18-2008 Cholesterol [...] [facility] Work Phone: LIPID PANEL ([id number])Ordered B y: Sherron Fast on 08-03-2007 Cholesterol [...] Medicine Work Phone: METABOLIC PANEL, COMPREHENSI VE ([id number])Ordered By: Sherron Fast on 08-03-2007 Albumin [Mass/Vol] 4.4 g/dL Normal 3.6-4.8 [facility]; [facility] Work Phone: Albumin/Globulin [Mass ratio] 1.5 {ratio} Normal 1.1-2.5 [facility]; [facility] Work Phone: ALP [Catalytic activity/Vol] 73 U/L Normal 25-160 [facility]; [facility] Work Phone: ALT [Catalytic activity/Vol] 19 U/L Normal 0-55 [facility]; [facility] Work Phone: AST [Catalytic activity/Vol] 19 U/L Normal 0-40 [facility]; [facility] Work Phone: Bilirubin [Mass/Vol] 1.1 mg/dL Normal 0.1-1.2 [facility]; [facility] Work Phone: Calcium [Mass/Vol] 9.3 mg/dL Normal 8.5-10.[address] [facility] Internal Medicine; [facility] Work Phone: Chloride [Moles/Vol] 100 mmol/L Normal 96-109 [facility] Internal Medicine; [facility] Work Phone: CO2 [Moles/Vol] 25 mmol/L Normal 20-32 [facility] Internal Medicine; [facility] Work Phone: Creatinine [Mass/Vol] 1.2 mg/dL Normal 0.5-1.5 [facility]; [facility] Work Phone: Globulin (S) [Mass/Vol] 3.0 g/dL Normal 1.5-4.5 [facility]; [facility] Work Phone: Glucose [Mass/Vol] 43 mg/dL Abnormal 65-[address] [facility] Internal Medicine; [facility] Work Phone: Potassium [Moles/Vol] 4.3 mmol/L Normal 3.5-5.5 [facility] Internal Medicine; [facility] Work Phone: Protein [Mass/Vol] 7.4 g/dL Normal 6.0-8.[address] [facility] Internal Medicine; [facility] Work Phone: Sodium [Moles/Vol] 143 mmol/L Normal 135-[address] [facility] Internal Medicine; [facility] Work Phone: Urea nitrogen [Mass/Vol] 21 mg/dL Normal 5-26 [facility]; [facility] Work Phone: Urea nitrogen/Creatinine [Mass ratio] 18 mg/mg Normal 8-27 [facility]; [facility] Work Phone: PSA (PROSTATE SPECIFIC ANTIG EN) ([id number])Ordered By: Sherron Mercer on 08-03-2007 Prostate specific Ag [Mass/Vol] 0.6 ng/mL Normal 0.0-4.0 [facility]; [facility] Work Phone: Rapid Strep Test, Office ([phone])Ordered By: Jaquelin Everett on 05-20-2007 S. pyogenes Ag EIA Ql (Throat) Negative Normal [facility]; [facility] Work Phone: METABOLIC PANEL, COMPREHENSI VE ([id number])Ordered By: Sherron Mercer on 03-15-2007 Albumin [Mass/Vol] 4.3 g/dL Normal 3.6-4.[address] [facility]; [facility] Work Phone: Albumin/Globulin [Mass ratio] 1.7 {ratio} Normal 1.1-2.5 [facility]; [facility] Work Phone: ALP [Catalytic activity/Vol] 61 U/L Normal 25-160 [facility]; [facility] Work Phone: ALT [Catalytic activity/Vol] 12 U/L Normal 0-55 [facility]; [facility] Work Phone: AST [Catalytic activity/Vol] 17 U/L Normal 0-40 [facility]; [facility] Work Phone: Bilirubin [Mass/Vol] 1.7 mg/dL Abnormal 0.1-1.2 [facility]; [facility] Work Phone: Calcium [Mass/Vol] 9.4 mg/dL Normal 8.5-10.[address] [facility] Internal Medicine; [facility] Work Phone: Chloride [Moles/Vol] 103 mmol/L Normal 96-109 [facility] Internal Medicine; [facility] Work Phone: CO2 [Moles/Vol] 28 mmol/L Normal 20-32 [facility] Internal Medicine; [facility] Work Phone: Creatinine [Mass/Vol] 1.2 mg/dL Normal 0.5-1.5 [facility] prehensive Internal Medicine; [facility] Work Phone: Globulin (S) [Mass/Vol] 2.6 g/dL Normal 1.5-4.5 [facility]; [facility] Work Phone: Glucose [Mass/Vol] 92 mg/dL Normal 65-[address] [facility] Internal Medicine; [facility] Work Phone: Potassium [Moles/Vol] 3.8 mmol/L Normal 3.5-5.5 [facility] prehensive Internal Medicine; [facility] Work Phone: Protein [Mass/Vol] 6.9 g/dL Normal 6.0-8.[address] [facility] Internal Medicine; [facility] Work Phone: Sodium [Moles/Vol] 142 mmol/L Normal 135-[address] [facility] Internal Medicine; [facility] Work Phone: Urea nitrogen [Mass/Vol] 19 mg/dL Normal 5-26 [facility]; [facility] Work Phone: Urea nitrogen/Creatinine [Mass ratio] 16 mg/mg Normal 8-27 [facility]; [facility] Work Phone: Culture, urine Bacteria identified Cx Nom (U) Pseudomonas aeroginosa [facility] Work Phone: Bacteria identified Cx Nom (U) Culture exhibits no growth. [facility] Work Phone: Vital Signs Date Time Vital Sign Value Performing Clinician Facility 11-14-2024 16:19-0400 Diastolic blood pressure 92 mm[Hg] [facility] PIPELINE CONSTRUCTION INSPECTOR-C Work Phone: [facility] 11-14-2024 16:19-0400 Heart rate 54 /min [facility] PIPELINE CONSTRUCTION INSPECTOR-C Work Phone: [facility] 11-14-2024 16:19-0400 Respiratory rate 18 /min [facility] PIPELINE CONSTRUCTION INSPECTOR-C Work Phone: [facility] 11-14-2024 16:19-0400 SaO2% (BldA) [Mass fraction] 98 % Juansammy Rodriguez PIPELINE CONSTRUCTION INSPECTOR-C Work Phone: [facility] 11-14-2024 16:19-0400 Systolic blood pressure 171 mm[Hg] Juan Negro PIPELINE CONSTRUCTION INSPECTOR-C Work Phone: [facility] 11-14-2024 14:20-0400 Body height 180.34 cm Juan Negro PIPELINE CONSTRUCTION INSPECTOR-C Work Phone: [facility] 11-14-2024 14:20-0400 Body temperature 97.5 [degF] Juan Davisgar PIPELINE CONSTRUCTION INSPECTOR-C Work Phone: [facility] 11-01-2024 07:31-0400 Body mass index (BMI) [Ratio] 22.8 kg/m2 Juan Davisgar PIPELINE CONSTRUCTION INSPECTOR-C Work Phone: [facility] 11-01-2024 07:31-0400 Body weight 74.38 kg Juan Negro PIPELINE CONSTRUCTION INSPECTOR-C Work Phone: [facility] 11-01-2024 07:31-0400 Diastolic blood pressure 62 mm[Hg] Juan Davisgar PIPELINE CONSTRUCTION INSPECTOR-C Work Phone: [facility] 11-01-2024 07:31-0400 Heart rate 57 /min Juan Davisgar PIPELINE CONSTRUCTION INSPECTOR-C Work Phone: [facility] 11-01-2024 07:31-0400 Respiratory rate 16 /min Juan Engro PIPELINE CONSTRUCTION INSPECTOR-C Work Phone: [facility] 11-01-2024 07:31-0400 Systolic blood pressure 100 mm[Hg] Juan Negro PIPELINE CONSTRUCTION INSPECTOR-C Work Phone: [facility] 08-16-2024 17:32-0400 Body height 180.[address] Butch Barcenas DO Work Phone: [facility] 08-16-2024 17:32-0400 Body mass index (BMI) [Ratio] 22.8 kg/m2 Dr. Butch Barcenas DO Work Phone: [facility] 08-16-2024 17:32-0400 Body temperature 98.9 [degF] Dr. Butch Barcenas DO Work Phone: [facility] 08-16-2024 17:32-0400 Body weight 74.[address] Bucth Barcenas DO Work Phone: [facility] 08-16-2024 17:32-0400 Diastolic blood pressure 84 mm[Hg] Dr. Butch Barcenas DO Work Phone: [facility] 08-16-2024 17:32-0400 Heart rate 87 /min Dr. Butch Barcenas DO Work Phone: 6(454)[phone] [place] [address] 08-16-2024 17:32-0400 Respiratory rate 18 /min Dr. Butch Barcenas DO Work Phone: 5(918)[phone] [place] [address] 08-16-2024 17:32-0400 SaO2% (BldA) [Mass fraction] 100 % Dr. Butch Barcenas DO Work Phone: [facility] 08-16-2024 17:32-0400 Systolic blood pressure 179 mm[Hg] Dr. Butch Barcenas DO Work Phone: [facility] 07-07-2024 13:45-0500 Body height 180.[address] DAY NEWBERRY MD [facility] 07-07-2024 13:45-0500 Body weight 78.[address] DAY NEWBERRY MD [facility] 07-07-2024 13:45-0500 Body weight 24.24 kg/m2 DR DAY NEWBERRY MD [facility] 07-07-2024 13:45-0500 Diastolic Blood Pressure Non-Invasive 79 mm[Hg] DR DAY NEWBERRY MD [facility] 07-07-2024 13:45-0500 Heart rate 65 /min DR DAY NEWBERRY MD [facility] 07-07-2024 13:45-0500 Respiratory rate 20 /min DR DAY NEWBERRY MD [facility] 07-07-2024 13:45-0500 Systolic Blood Pressure Non-Invasive 120 mm[Hg] DR DAY NEWBERRY MD [facility] 05-18-2024 10:04-0500 Body mass index (BMI) [Ratio] 23.6 kg/m2 Dr. Butch Barcenas DO Work Phone: 0(603)[phone] [place] [address] 05-18-2024 10:04-0500 Body weight 76.[address] Butch Barcenas DO Work Phone: 0(342)[phone] [place] [address] 05-18-2024 10:04-0500 Diastolic blood pressure 67 mm[Hg] Dr. Butch Barcenas DO Work Phone: 5(238)265-31[address] [place] [address] 05-18-2024 10:04-0500 Heart rate 66 /min Dr. Butch Barcenas DO Work Phone: 0(867)347-009753 [place] [address] 05-18-2024 10:04-0500 Respiratory rate 16 /min Dr. Butch Barcenas DO Work Phone: [phone])[phone] [place] [address] 05-18-2024 10:04-0500 SaO2% (BldA) [Mass fraction] 98 % Dr. Butch Barcenas DO Work Phone: [facility] 05-18-2024 10:04-0500 Systolic blood pressure 115 mm[Hg] Dr. Butch Barcenas DO Work Phone: [facility] 04-28-2024 08:51-0500 Body temperature 97.8 [degF] Dr. Butch Barcenas DO Work Phone: [facility] 04-28-2024 08:51-0500 Diastolic blood pressure 68 mm[Hg] Dr. Butch Barcenas DO Work Phone: [facility] 04-28-2024 08:51-0500 Heart rate 98 /min Dr. Butch Barcenas DO Work Phone: 0(605)[phone] [place] [address] 04-28-2024 08:51-0500 Respiratory rate 16 /min Dr. Butch Barcenas DO Work Phone: [phone])[phone] [place] [address] 04-28-2024 08:51-0500 SaO2% (BldA) [Mass fraction] 98 % Dr. Butch Barcenas DO Work Phone: 3(127)[phone] [place] [address] 04-28-2024 08:51-0500 Systolic blood pressure 116 mm[Hg] Dr. Butch Barcenas DO Work Phone: 8(187)141-156453 [place] [address] 04-27-2024 02:48-0500 Body mass index (BMI) [Ratio] 22 kg/m2 Dr. Butch Barcenas DO Work Phone: 0(755)[phone] [place] [address] 04-26-2024 10:54-0500 Body weight 71.[address] Butch Barcenas DO Work Phone: 5(912)[phone] [place] [address] 10-03-2023 08:02-0400 SaO2% (BldA) [Mass fraction] 97 % Dr. Jose Hooks Work Phone: [facility] 10-03-2023 07:58-0400 Body temperature 97.6 [degF] Dr. Jose Hooks Work Phone: [facility] 10-03-2023 07:58-0400 Diastolic blood pressure 94 mm[Hg] Dr. Jose Hooks Work Phone: [facility] 10-03-2023 07:58-0400 Heart rate 60 /min Dr. Jose Hooks Work Phone: [facility] 10-03-2023 07:58-0400 Respiratory rate 16 /min Dr. Jose Hooks Work Phone: [facility] 10-03-2023 07:58-0400 Systolic blood pressure 168 mm[Hg] Dr. Jose Hooks Work Phone: [facility] 10-03-2023 00:28-0400 Body mass index (BMI) [Ratio] 25 kg/m2 Dr. Jose Hooks Work Phone: [facility] 10-03-2023 00:28-0400 Body weight 81.[address] Jose Hooks Work Phone: 2(452)633-700006 [place] [address] 10-01-2023 10:43-0400 Body height 180.[address] Jose Hooks Work Phone: 2(695)[phone] [place] [address] 09-30-2023 18:34-0400 Inhaled oxygen flow rate 95 L/min Dr. Jose Hooks Work Phone: 4(144)038-963219 [place] [address] 09-30-2023 16:36-0400 Body temperature 99.4 [degF] Dr. Jose Hooks Work Phone: 3(975)255-759713 [address] 09-30-2023 16:36-0400 Diastolic blood pressure 69 mm[Hg] Dr. Jose Hooks Work Phone: 8(664)[phone] [address] 09-30-2023 16:36-0400 Heart rate 74 /min Dr. Jose Hooks Work Phone: 4(837)814-201919 [place] [address] 09-30-2023 16:36-0400 Respiratory rate 16 /min Dr. Jose Hooks Work Phone: 5(866)962-[address] [place] [address] 09-30-2023 16:36-0400 SaO2% (BldA) [Mass fraction] 92 % Dr. Jose Hooks Work Phone: 7(396)[phone] [place] [address] 09-30-2023 16:36-0400 Systolic blood pressure 122 mm[Hg] Dr. Jose Hooks Work Phone: 3(497)515-984406 [place] [address] 09-30-2023 09:39-0400 Body mass index (BMI) [Ratio] 23.7 kg/m2 Dr. Jose Hooks Work Phone: 8(088)[phone] [place] [address] 09-30-2023 09:39-0400 Body weight 77.[address] Jose Hooks Work Phone: [facility] 09-30-2023 09:37-0400 Body height 180.[address] Jose Hooks Work Phone: [phone])[phone] [place] [address] 08-18-2023 13:14-0400 Body temperature 98.4 [degF] Dr. Jose Hooks Work Phone: 9(915)891-966106 [place] [address] 08-18-2023 13:14-0400 Body weight 80.[address] Jose Hooks Work Phone: 7(214)397-189406 [place] [address] 08-18-2023 13:14-0400 Diastolic blood pressure 94 mm[Hg] Dr. Jose Hooks Work Phone: 1(578)596-294113 [address] 08-18-2023 13:14-0400 Heart rate 59 /min Dr. Jose Hooks Work Phone: 3(663)761-840413 [address] 08-18-2023 13:14-0400 Respiratory rate 16 /min Dr. Jose Hooks Work Phone: 5(386)114-180119 [place] [address] 08-18-2023 13:14-0400 SaO2% (BldA) [Mass fraction] 94 % Dr. Jose Hooks Work Phone: 6(627)561-452213 [address] 08-18-2023 13:14-0400 Systolic blood pressure 165 mm[Hg] Dr. Jose Hooks Work Phone: 9(453)249-562906 [place] [address] 06-25-2023 11:00-0500 Body temperature 98.4 [degF] Dr. Jose Hooks Work Phone: 3(139)376-236606 [place] [address] 06-25-2023 11:00-0500 Body weight 76.[address] Jose Hooks Work Phone: 4(827)491-779506 [place] [address] 06-25-2023 11:00-0500 Diastolic blood pressure 79 mm[Hg] Dr. Jose Hooks Work Phone: 0(564)959-136706 [place] [address] 06-25-2023 11:00-0500 Heart rate 65 /min Dr. Jose Hooks Work Phone: 5(246)932-455506 [place] [address] 06-25-2023 11:00-0500 Respiratory rate 16 /min Dr. Jose Hooks Work Phone: [facility] 06-25-2023 11:00-0500 SaO2% (BldA) [Mass fraction] 96 % Dr. Jose Hooks Work Phone: [facility] 06-25-2023 11:00-0500 Systolic blood pressure 115 mm[Hg] Dr. Jose Hooks Work Phone: 4(286)453-561406 [place] [address] 06-03-2023 09:05-0500 Body height 180.[address] Jose Hooks Work Phone: 1(088)227-545406 [place] [address] 06-03-2023 09:05-0500 Body weight 74.[address] Jose Hooks Work Phone: 7(268)296-225606 [place] [address] 06-02-2023 11:31-0500 Body mass index (BMI) [Ratio] 22.9 kg/m2 Dr. Jose Hooks Work Phone: 5(304)392-583706 [place] [address] 05-30-2023 16:35-0500 Diastolic blood pressure 93 mm[Hg] Dr. Jose Hooks Work Phone: 0(655)288-608506 [place] [address] 05-30-2023 16:35-0500 Heart rate 77 /min Dr. Jose Hooks Work Phone: 8(312)202-262106 [place] [address] 05-30-2023 16:35-0500 Respiratory rate 16 /min Dr. Jose Hooks Work Phone: [facility] 05-30-2023 16:35-0500 SaO2% (BldA) [Mass fraction] 97 % Dr. Jose Hooks Work Phone: [facility] 05-30-2023 16:35-0500 Systolic blood pressure 137 mm[Hg] Dr. Jose Hooks Work Phone: [facility] 05-30-2023 11:13-0500 Body height 180.[address] Jose Hooks Work Phone: 5(705)076-641106 [place] [address] 05-30-2023 11:13-0500 Body weight 74.[address] Jose Hooks Work Phone: 3(376)527-709506 [place] [address] 05-30-2023 10:00-0500 Diastolic blood pressure 85 mm[Hg] Dr. Jose Hooks Work Phone: [facility] 05-30-2023 10:00-0500 Heart rate 66 /min Dr. Jose Hooks Work Phone: [facility] 05-30-2023 10:00-0500 Systolic blood pressure 120 mm[Hg] Dr. Jose Hooks Work Phone: [facility] 05-30-2023 09:58-0500 Body temperature 97.9 [degF] Dr. Jose Hooks Work Phone: [facility] 05-30-2023 09:58-0500 Respiratory rate 18 /min Dr. Jose Hooks Work Phone: [facility] 05-30-2023 09:58-0500 SaO2% (BldA) [Mass fraction] 96 % Dr. Jose Hooks Work Phone: [facility] 05-30-2023 06:00-0500 Body mass index (BMI) [Ratio] 22.9 kg/m2 Dr. Jose Hooks Work Phone: [facility] 05-29-2023 16:44-0500 Diastolic blood pressure 89 mm[Hg] Dr. Jose Hooks Work Phone: [facility] 05-29-2023 16:44-0500 Heart rate 69 /min Dr. Jose Hooks Work Phone: [facility] 05-29-2023 16:44-0500 Respiratory rate 18 /min Dr. Jose Hooks Work Phone: [facility] 05-29-2023 16:44-0500 SaO2% (BldA) [Mass fraction] 96 % Dr. Jose Hooks Work Phone: [facility] 05-29-2023 16:44-0500 Systolic blood pressure 141 mm[Hg] Dr. Jose Hooks Work Phone: [facility] 05-29-2023 14:37-0500 Body mass index (BMI) [Ratio] 24.2 kg/m2 Dr. Jose Hooks Work Phone: [facility] 05-29-2023 14:37-0500 Body weight 76.[address] Jose Hooks Work Phone: [facility] 05-29-2023 14:06-0500 Body height 177.[address] Jose Hooks Work Phone: [facility] 05-29-2023 14:06-0500 Body temperature 98.2 [degF] Dr. Jose Hooks Work Phone: [facility] 05-23-2023 15:32-0500 Inhaled oxygen flow rate 0 L/min Dr. Jose Hooks Work Phone: [facility] 05-23-2023 15:32-0500 SaO2% (BldA) [Mass fraction] 91 % Dr. Jose Hooks Work Phone: [facility] 05-23-2023 13:25-0500 Body temperature 97.5 [degF] Dr. Jose Hooks Work Phone: [facility] 05-23-2023 13:25-0500 Diastolic blood pressure 72 mm[Hg] Dr. Jose Hooks Work Phone: [facility] 05-23-2023 13:25-0500 Heart rate 60 /min Dr. Jose Hooks Work Phone: [facility] 05-23-2023 13:25-0500 Respiratory rate 16 /min Dr. Jose Hooks Work Phone: [facility] 05-23-2023 13:25-0500 Systolic blood pressure 118 mm[Hg] Dr. Jose Hooks Work Phone: [facility] 05-23-2023 13:15-0500 Body mass index (BMI) [Ratio] 21.4 kg/m2 Dr. Jose Hooks Work Phone: [facility] 05-22-2023 14:59-0500 Body height 185.[address] Jose Hooks Work Phone: [facility] 05-22-2023 14:59-0500 Body weight 74.[address] Jose Hooks Work Phone: 5(217)205-181606 [place] [address] 05-20-2023 12:37-0500 Body height 185.[address] Jose Hooks Work Phone: 0(333)414-820819 [place] [address] 05-20-2023 12:37-0500 Body mass index (BMI) [Ratio] 21.4 kg/m2 Dr. Jose Hooks Work Phone: 9(395)087-327613 [address] 05-20-2023 12:37-0500 Body weight 74.[address] Jose Hooks Work Phone: 6(462)878-177019 [place] [address] 05-20-2023 12:00-0500 Body temperature 98 [degF] Dr. Jose Hooks Work Phone: 9(728)827-835619 [place] [address] 05-20-2023 12:00-0500 Diastolic blood pressure 84 mm[Hg] Dr. Jose Hooks Work Phone: 0(805)372-738419 [place] [address] 05-20-2023 12:00-0500 Heart rate 82 /min Dr. Jose Hooks Work Phone: 3(276)175-161919 [place] [address] 05-20-2023 12:00-0500 Respiratory rate 16 /min Dr. Jose Hooks Work Phone: 3(186)918-198019 [place] [address] 05-20-2023 12:00-0500 SaO2% (BldA) [Mass fraction] 94 % Dr. Jose Hooks Work Phone: 7(505)872-864406 [place] [address] 05-20-2023 12:00-0500 Systolic blood pressure 144 mm[Hg] Dr. Jose Hooks Work Phone: 8([phone] [place] [address] 04-15-2023 15:21-0500 Body height 180.[address] Jose Hooks Work Phone: 8(083)734-029819 [place] [address] 04-15-2023 15:18-0500 Body mass index (BMI) [Ratio] 24.8 kg/m2 Dr. Jose Hooks Work Phone: 3(871)584-239813 [address] 04-15-2023 15:18-0500 Body weight 78.[address] Jose Hooks Work Phone: [facility] 04-15-2023 15:18-0500 Diastolic blood pressure 89 mm[Hg] Dr. Jose Hooks Work Phone: [facility] 04-15-2023 15:18-0500 Heart rate 63 /min Dr. Jose Hooks Work Phone: [facility] 04-15-2023 15:18-0500 Respiratory rate 18 /min Dr. Jose Hooks Work Phone: [facility] 04-15-2023 15:18-0500 SaO2% (BldA) [Mass fraction] 97 % Dr. Jose Hooks Work Phone: [facility] 04-15-2023 15:18-0500 Systolic blood pressure 129 mm[Hg] Dr. Jose Hooks Work Phone: 7(932)852-334206 [place] [address] 04-13-2023 08:14-0500 Body height 180.[address] Jose Hooks Work Phone: 4(803)310-325906 [place] [address] 04-13-2023 08:14-0500 Body weight 78.[address] Jose Hooks Work Phone: [facility] 03-13-2023 08:22-0400 Body weight 77.[address] Jose Hooks Work Phone: [facility] 02-11-2023 07:34-0400 Body height 180.[address] Jose Hooks Work Phone: [facility] 02-11-2023 07:34-0400 Body weight 79.[address] Jose Hooks Work Phone: [facility] 01-15-2023 14:56-0400 Body height 180.[address] Jose Hooks Work Phone: [facility] 01-15-2023 14:56-0400 Body mass index (BMI) [Ratio] 23.6 kg/m2 Dr. Jose Hooks Work Phone: [facility] 01-15-2023 14:56-0400 Body weight 76.[address] Jose Hooks Work Phone: [facility] 01-15-2023 14:56-0400 Diastolic blood pressure 90 mm[Hg] Dr. Jose Hooks Work Phone: [facility] 01-15-2023 14:56-0400 Heart rate 63 /min Dr. Jose Hooks Work Phone: [facility] 01-15-2023 14:56-0400 Respiratory rate 18 /min Dr. Jose Hooks Work Phone: 1(975)340-754406 [place] [address] 01-15-2023 14:56-0400 SaO2% (BldA) [Mass fraction] 95 % Dr. Jose Hooks Work Phone: 3(514)281-417506 [place] [address] 01-15-2023 14:56-0400 Systolic blood pressure 142 mm[Hg] Dr. Jose Hooks Work Phone: 6(532)351-374706 [place] [address] 01-12-2023 13:54-0400 Body mass index (BMI) [Ratio] 23.2 kg/m2 Dr. Jose Hooks Work Phone: 1(084)396-123006 [place] [address] 01-12-2023 13:51-0400 Body weight 75.[address] Jose Hooks Work Phone: 6(257)095-592506 [place] [address] 01-12-2023 13:07-0400 Diastolic blood pressure 85 mm[Hg] Dr. Jose Hooks Work Phone: [facility] 01-12-2023 13:07-0400 Heart rate 64 /min Dr. Jose Hooks Work Phone: [facility] 01-12-2023 13:07-0400 Systolic blood pressure 121 mm[Hg] Dr. Jose Hooks Work Phone: [facility] 01-06-2023 10:02-0400 Body temperature 97.1 [degF] Dr. Jose Hooks Work Phone: [facility] 01-06-2023 10:02-0400 Diastolic blood pressure 98 mm[Hg] Dr. Jose Hooks Work Phone: [facility] 01-06-2023 10:02-0400 Heart rate 56 /min Dr. Jose Hooks Work Phone: [facility] 01-06-2023 10:02-0400 Respiratory rate 18 /min Dr. Jose Hooks Work Phone: [facility] 01-06-2023 10:02-0400 SaO2% (BldA) [Mass fraction] 96 % Dr. Jose Hooks Work Phone: [facility] 01-06-2023 10:02-0400 Systolic blood pressure 140 mm[Hg] Dr. Jose Hooks Work Phone: [facility] 01-06-2023 05:26-0400 Body mass index (BMI) [Ratio] 23.3 kg/m2 Dr. Jose Hooks Work Phone: 6(529)630-543006 [place] [address] 01-06-2023 05:26-0400 Body weight 75.[address] Jose Hooks Work Phone: 5(340)598-090106 [place] [address] 01-05-2023 11:05-0400 Body height 180.[address] Jose Hooks Work Phone: [facility] 12-09-2022 13:00-0400 Body mass index (BMI) [Ratio] 23.1 kg/m2 Dr. Jose Hooks Work Phone: [facility] 12-09-2022 13:00-0400 Body weight 75.[address] Jose Hooks Work Phone: [facility] 12-09-2022 13:00-0400 Diastolic blood pressure 85 mm[Hg] Dr. Jose Hooks Work Phone: [facility] 12-09-2022 13:00-0400 Heart rate 64 /min Dr. Jose Hooks Work Phone: [facility] 12-09-2022 13:00-0400 Respiratory rate 16 /min Dr. Jose Hooks Work Phone: [facility] 12-09-2022 13:00-0400 Systolic blood pressure 121 mm[Hg] Dr. Jose Hooks Work Phone: [facility] 11-17-2022 23:19-0400 Diastolic blood pressure 96 mm[Hg] Dr. Jose Hooks Work Phone: 3(425)950-287906 [place] [address] 11-17-2022 23:19-0400 Heart rate 62 /min Dr. Jose Hooks Work Phone: 0(669)366-867906 [place] [address] 11-17-2022 23:19-0400 Respiratory rate 15 /min Dr. Jose Hooks Work Phone: 7(880)748-156906 [place] [address] 11-17-2022 23:19-0400 SaO2% (BldA) [Mass fraction] 97 % Dr. Jose Hooks Work Phone: 4(453)970-083919 [place] [address] 11-17-2022 23:19-0400 Systolic blood pressure 179 mm[Hg] Dr. Jose Hooks Work Phone: 3(191)317-989106 [place] [address] 11-17-2022 18:12-0400 Body mass index (BMI) [Ratio] 23.5 kg/m2 Dr. Jose Hooks Work Phone: 5(674)325-177519 [place] [address] 11-17-2022 18:12-0400 Body temperature 97.8 [degF] Dr. Jose Hooks Work Phone: 3(772)941-886119 [place] [address] 11-17-2022 18:12-0400 Body weight 76.[address] Jose Hooks Work Phone: 3(689)807-165506 [place] [address] 11-04-2022 11:26-0400 Body height 180.[address] Jose Hooks Work Phone: 3(995)695-010106 [place] [address] 11-04-2022 11:26-0400 Body mass index (BMI) [Ratio] 22.6 kg/m2 Dr. Jose Hooks Work Phone: 0(665)463-365506 [place] [address] 11-04-2022 11:26-0400 Body weight 73.[address] Jose Hooks Work Phone: 0(358)296-170319 [place] [address] 11-04-2022 11:26-0400 Diastolic blood pressure 83 mm[Hg] Dr. Jose Hooks Work Phone: [facility] 11-04-2022 11:26-0400 Heart rate 55 /min Dr. Jose Hooks Work Phone: [facility] 11-04-2022 11:26-0400 Respiratory rate 16 /min Dr. Jose Hooks Work Phone: [facility] 11-04-2022 11:26-0400 Systolic blood pressure 122 mm[Hg] Dr. Jose Hooks Work Phone: 0(849)423-172606 [place] [address] 06-26-2022 09:41-0500 Body height 180.[address] Jose Hooks Work Phone: 1(305)728-805906 [place] [address] 06-26-2022 09:41-0500 Body mass index (BMI) [Ratio] 23.8 kg/m2 Dr. Jose Hooks Work Phone: 1(430)367-215919 [place] [address] 06-26-2022 09:41-0500 Body weight 77.[address] Jose Hooks Work Phone: 2(410)715-484113 [address] 06-26-2022 09:41-0500 Diastolic blood pressure 81 mm[Hg] Dr. Jose Hooks Work Phone: 0(159)693-266806 [place] [address] 06-26-2022 09:41-0500 Heart rate 63 /min Dr. Jose Hooks Work Phone: 7(181)049-451806 [place] [address] 06-26-2022 09:41-0500 Respiratory rate 18 /min Dr. Jose Hooks Work Phone: 8(132)284-248106 [place] [address] 06-26-2022 09:41-0500 SaO2% (BldA) [Mass fraction] 97 % Dr. Jose Hooks Work Phone: 0(511)512-722406 [place] [address] 06-26-2022 09:41-0500 Systolic blood pressure 147 mm[Hg] Dr. Jose Hooks Work Phone: 4(454)999-347506 [place] [address] 03-18-2022 14:14-0400 Diastolic blood pressure 90 mm[Hg] Dr. Jose Hooks Work Phone: [facility] 03-18-2022 14:14-0400 Systolic blood pressure 160 mm[Hg] Dr. Jose Hooks Work Phone: [facility] 03-18-2022 13:46-0400 Body height 180.[address] Jose Hooks Work Phone: [facility] Work Phone: 03-18-2022 13:46-0400 Body mass index (BMI) [Ratio] 23.8 kg/m2 Dr. Jose Hooks Work Phone: [facility] 03-18-2022 13:46-0400 Body weight 77.[address] Jose Hooks Work Phone: [facility] 03-18-2022 13:46-0400 Heart rate 58 /min Dr. Jose Hooks Work Phone: [facility] 03-18-2022 13:46-0400 Respiratory rate 16 /min Dr. Jose Hooks Work Phone: [facility] 01-09-2022 09:17-0400 Body height 180.[address] Jose Hooks Work Phone: [facility] Work Phone: 01-09-2022 09:17-0400 Diastolic blood pressure 80 mm[Hg] Dr. Jose Hooks Work Phone: [facility] Work Phone: 01-09-2022 09:17-0400 Systolic blood pressure 130 mm[Hg] Dr. Jose Hooks Work Phone: [facility] Work Phone: 01-09-2022 09:17-0400 Body mass index (BMI) [Ratio] 23.7 kg/m2 Dr. Jose Hooks Work Phone: [facility] Work Phone: 01-09-2022 09:17-0400 Body weight 77.[address] Jose Hooks Work Phone: [facility] Work Phone: 01-09-2022 09:17-0400 Heart rate 67 /min Dr. Jose Hooks Work Phone: [facility] Work Phone: 01-09-2022 09:17-0400 Respiratory rate 18 /min Dr. Jose Hooks Work Phone: [facility] Work Phone: 01-09-2022 09:17-0400 SaO2% (BldA) [Mass fraction] 96 % Dr. Jose Hooks Work Phone: [facility] Work Phone: 12-25-2021 09:54-0400 Diastolic blood pressure 100 mm[Hg] Dr. Jose Hooks Work Phone: [facility] Work Phone: 12-25-2021 09:54-0400 Heart rate 68 /min Dr. Jose Hooks Work Phone: [facility] Work Phone: 12-25-2021 09:54-0400 Systolic blood pressure 160 mm[Hg] Dr. Jose Hooks Work Phone: [facility] Work Phone: 09-18-2021 08:49-0400 Body height 180.[address] Jose Hooks Work Phone: [facility] Work Phone: 09-18-2021 08:49-0400 Body mass index (BMI) [Ratio] 23.8 kg/m2 Dr. Jose Hooks Work Phone: [facility] Work Phone: 09-18-2021 08:49-0400 Body weight 77.[address] Jose Hooks Work Phone: [facility] Work Phone: 09-18-2021 08:49-0400 Diastolic blood pressure 59 mm[Hg] Dr. Jose Hooks Work Phone: [facility] Work Phone: 09-18-2021 08:49-0400 Heart rate 59 /min Dr. Jose Hooks Work Phone: [facility] Work Phone: 09-18-2021 08:49-0400 Respiratory rate 18 /min Dr. Jose Hooks Work Phone: [facility] Work Phone: 09-18-2021 08:49-0400 SaO2% (BldA) [Mass fraction] 98 % Dr. Jose Hooks Work Phone: [facility] Work Phone: 09-18-2021 08:49-0400 Systolic blood pressure 101 mm[Hg] Dr. Jose Hooks Work Phone: [facility] Work Phone: 09-18-2021 08:49-0400 Body height 180.[address] Jose Hooks Work Phone: [facility] Work Phone: 09-18-2021 08:49-0400 Body mass index (BMI) [Ratio] 23.8 kg/m2 Dr. Jose Hooks Work Phone: [facility] Work Phone: 09-18-2021 08:49-0400 Body weight 77.[address] Jose Hooks Work Phone: [facility] Work Phone: 09-18-2021 08:49-0400 Diastolic blood pressure 59 mm[Hg] Dr. Jose Hooks Work Phone: [facility] Work Phone: 09-18-2021 08:49-0400 Heart rate 59 /min Dr. Jose Hooks Work Phone: [facility] Work Phone: 09-18-2021 08:49-0400 Respiratory rate 18 /min Dr. Jose Hooks Work Phone: [facility] Work Phone: 09-18-2021 08:49-0400 SaO2% (BldA) [Mass fraction] 98 % Dr. Jose Hooks Work Phone: [facility] Work Phone: 09-18-2021 08:49-0400 Systolic blood pressure 101 mm[Hg] Dr. Jose Hooks Work Phone: [facility] Work Phone: 09-04-2021 10:29-0400 Body weight 79.[address] Jose Hooks Work Phone: [facility] Work Phone: 09-04-2021 10:29-0400 Body height 180.[address] Javi Bates Work Phone: [facility] Work Phone: 09-04-2021 10:29-0400 Body weight 79.[address] Javi Bates Work Phone: [facility] Work Phone: 08-05-2021 13:10-0500 Body weight 79.[address] Jose Hooks Work Phone: [facility] Work Phone: 08-05-2021 12:10-0500 Body height 180.[address] Javi Bates Work Phone: [facility] Work Phone: 08-05-2021 12:10-0500 Body weight 79.[address] Javi Bates Work Phone: [facility] Work Phone: 07-09-2021 08:15-0500 Body weight 77.[address] Javi Bates Work Phone: [facility] Work Phone: 07-09-2021 07:40-0500 Body mass index (BMI) [Ratio] 23.7 kg/m2 Dr. Javi Bates Work Phone: [facility] Work Phone: 07-09-2021 07:40-0500 Body temperature 97.8 [degF] Dr. Javi Bates Work Phone: [facility] Work Phone: 07-09-2021 07:40-0500 Diastolic blood pressure 71 mm[Hg] Dr. Javi Bates Work Phone: [facility] Work Phone: 07-09-2021 07:40-0500 Heart rate 57 /min Dr. Javi Bates Work Phone: [facility] Work Phone: 07-09-2021 07:40-0500 Respiratory rate 18 /min Dr. Javi Bates Work Phone: [facility] Work Phone: 07-09-2021 07:40-0500 SaO2% (BldA) [Mass fraction] 97 % Dr. Javi Bates Work Phone: [facility] Work Phone: 07-09-2021 07:40-0500 Systolic blood pressure 109 mm[Hg] Dr. Javi Bates Work Phone: [facility] Work Phone: 06-27-2021 08:58-0500 Body mass index (BMI) [Ratio] 23.7 kg/m2 Dr. Javi Bates Work Phone: [facility] Work Phone: 06-27-2021 08:58-0500 Body weight 77.[address] Javi Bates Work Phone: [facility] Work Phone: 06-27-2021 08:58-0500 Diastolic blood pressure 71 mm[Hg] Dr. Javi Bates Work Phone: [facility] Work Phone: 06-27-2021 08:58-0500 Heart rate 57 /min Dr. Javi Bates Work Phone: [facility] Work Phone: 06-27-2021 08:58-0500 Respiratory rate 18 /min Dr. Javi Bates Work Phone: [facility] Work Phone: 06-27-2021 08:58-0500 SaO2% (BldA) [Mass fraction] 97 % Dr. Javi Bates Work Phone: [facility] Work Phone: 06-27-2021 08:58-0500 Systolic blood pressure 109 mm[Hg] Dr. Javi Bates Work Phone: [facility] Work Phone: 05-16-2021 14:27-0500 Diastolic blood pressure 94 mm[Hg] Dr. Javi Bates Work Phone: [facility] Work Phone: 05-16-2021 14:27-0500 Heart rate 87 /min Dr. Javi Bates Work Phone: [facility] Work Phone: 05-16-2021 14:27-0500 Respiratory rate 15 /min Dr. Javi Bates Work Phone: [facility] Work Phone: 05-16-2021 14:27-0500 SaO2% (BldA) [Mass fraction] 99 % Dr. Javi Bates Work Phone: [facility] Work Phone: 05-16-2021 14:27-0500 Systolic blood pressure 138 mm[Hg] Dr. Javi Bates Work Phone: [facility] Work Phone: 05-16-2021 11:05-0500 Body mass index (BMI) [Ratio] 23.3 kg/m2 Dr. Javi Bates Work Phone: [facility] Work Phone: 05-16-2021 11:05-0500 Body temperature 97.7 [degF] Dr. Javi Bates Work Phone: [facility] Work Phone: 05-16-2021 11:05-0500 Body weight [address] Javi Bates Work Phone: [facility] Work Phone: 05-16-2021 10:05-0500 Body weight 75.[address] Javi Bates Work Phone: [facility] Work Phone: 05-16-2021 10:05-0500 Diastolic blood pressure 78 mm[Hg] Dr. Javi Bates Work Phone: [facility] Work Phone: 05-16-2021 10:05-0500 Heart rate 60 /min Dr. Javi Bates Work Phone: [facility] Work Phone: 05-16-2021 10:05-0500 Respiratory rate 18 /min Dr. Javi Bates Work Phone: [facility] Work Phone: 05-16-2021 10:05-0500 Systolic blood pressure 114 mm[Hg] Dr. Javi Bates Work Phone: [facility] Work Phone: 05-03-2021 13:41-0500 Body temperature 96.5 [degF] Dr. Javi Bates Work Phone: [facility] Work Phone: 05-03-2021 13:41-0500 Diastolic blood pressure 68 mm[Hg] Dr. Javi Bates Work Phone: [facility] Work Phone: 05-03-2021 13:41-0500 Heart rate 69 /min Dr. Javi Bates Work Phone: [facility] Work Phone: 05-03-2021 13:41-0500 Respiratory rate 16 /min Dr. Javi Bates Work Phone: [facility] Work Phone: 05-03-2021 13:41-0500 SaO2% (BldA) [Mass fraction] 98 % Dr. Javi Bates Work Phone: [facility] Work Phone: 05-03-2021 13:41-0500 Systolic blood pressure 112 mm[Hg] Dr. Javi Bates Work Phone: [facility] Work Phone: 05-03-2021 06:56-0500 Body mass index (BMI) [Ratio] 21.9 kg/m2 Dr. Javi Bates Work Phone: [facility] Work Phone: 05-03-2021 06:56-0500 Body weight 73.[address] Javi Bates Work Phone: [facility] Work Phone: 10-31-2020 14:10-0400 Body mass index (BMI) [Ratio] 23.7 kg/m2 Dr. Javi Bates Work Phone: [facility] Work Phone: 04-27-2017 08:52-0500 BMI (Body Mass Index) 25.82 kg/m2 Cordelia Rivera [facility] Work Phone: 04-27-2017 08:52-0500 BP Diastolic 81 mm[Hg] Cordelia Rivera [facility] Work Phone: 04-27-2017 08:52-0500 BP Systolic 131 mm[Hg] Cordelia Rivera [facility] Work Phone: 04-27-2017 08:52-0500 Height 177.8 cm Cordelia [facility] Work Phone: 04-27-2017 08:52-0500 Pulse (Heart Rate) 64 /min [facility] Work Phone: 04-27-2017 08:52-0500 Respiratory Rate 18 /min [facility] Work Phone: 04-27-2017 08:52-0500 Weight 81.65 kg [facility] Work Phone: 06-13-2016 11:52-0500 BSA (Body Surface Area) 2.03 m2 [facility] Work Phone: 05-05-2016 12:59-0500 BP Diastolic 90 mm[Hg] [facility] Work Phone: 05-05-2016 12:59-0500 BP Systolic 130 mm[Hg] [facility] Work Phone: 12-05-2015 13:09-0400 Body [...] 13:49-0400 Systolic blood pressure 118 mm[Hg] Myrna Rvias RN [facility]; [facility] [...] Respiratory rate 18 /min [facility] Work Phone: 11-07-2015 13:17-0400 SaO2% (BldA) [Mass fraction] 97 % Myrna Rivas RN [facility]; [facility] Work Phone: 11-07-2015 13:17-0400 Systolic blood pressure 158 mm[Hg] Myrna Rivas RN [facility]; [facility] Work Phone: 10-24-2015 12:25-0400 Body height 177.8 cm Jonna Richards [facility]; [facility] Work Phone: 10-24-2015 12:25-0400 Body mass index (BMI) [Ratio] 25.77 kg/m2 Jonna Richards [facility]; [facility] Work Phone: 10-24-2015 12:25-0400 Body surface area Derived from formula 1.99 m2 Jonna Richards [facility]; [facility] Work Phone: 10-24-2015 12:250400 Body weight 81.47 kg Jonna Richards [facility]; [facility] [...] (BldA) [Mass fraction] 95 % Jonna Richards [facility]; [facility] Work Phone: 10-24-2015 12:25-0400 Systolic blood pressure 124 mm[Hg] Jonna Richards [facility]; [facility] Work Phone: 10-15-2015 13:33-0400 Body height 177.8 cm Stefano Emoctavio [facility]; [facility] Work Phone: 10-15-2015 13:33-0400 Body mass index (BMI) [Ratio] 26.2 kg/m2 [facility]; [facility] Work Phone: 10-15-2015 13:33-0400 Body surface area Derived from formula 2.01 m2 Stefano Emoctavio [facility]; [facility] Work Phone: 10-15-2015 13:33-0400 Body temperature 98 [degF] Stefano Emoctavio [facility]; [facility] Work Phone: 10-15-2015 13:33-0400 Body weight 82.83 kg [place] Emoctavio [facility]; [facility] [...] (BldA) [Mass fraction] 96 % Jackie Gaytan [facility]; [facility] Work Phone: 10-03-2015 09:54-0400 Systolic blood pressure 132 mm[Hg] Jackie Gaytan [facility]; [facility] Work Phone: 08-08-2015 10:45-0500 Body height 177.8 cm Jackie Gaytan [facility]; [facility] [...] 10:45-0500 Body weight 86.64 kg Jackie Gaytan [facility]; [facility] [...] (BldA) [Mass fraction] 96 % Jackie Gaytan [facility]; [facility] Work Phone: 08-08-2015 10:45-0500 Systolic blood pressure 126 mm[Hg] Jackie Gaytan [facility]; [facility] Work Phone: 06-13-2015 13:27-0500 Body height 177.8 cm Jackie Gaytan [facility]; [facility] Work Phone: 06-13-2015 13:27-0500 Body mass index (BMI) [Ratio] 27.26 kg/m2 Jackie Gaytan [facility]; [facility] Work Phone: 06-13-2015 13:27-0500 Body surface area Derived from formula 2.04 m2 Jackie Gaytan [facility]; [facility] Work Phone: 06-13-2015 13:27-0500 Body temperature 98.5 [degF] Jackie Gaytan [facility]; [facility] Work Phone: 06-13-2015 13:27-0500 Body weight 86.18 kg Jackie Gaytan [facility]; [facility] Work Phone: 06-13-2015 13:27-0500 Diastolic blood pressure 84 mm[Hg] Jackie Gaytan [facility]; [facility] Work Phone: 06-13-2015 13:27-0500 Heart rate 96 /min Jackie Gaytan [facility]; [facility] Work Phone: 06-13-2015 13:27-0500 Respiratory rate 16 /min Jackie Darby [facility]; [facility] Work Phone: 06-13-2015 13:27-0500 SaO2% (BldA) [Mass fraction] 95 % Jackie Gaytan [facility]; [facility] Work Phone: 06-13-2015 13:27-0500 Systolic blood pressure 132 mm[Hg] Jackie Darby [facility]; [facility] Work Phone: 01-24-2015 13:33-0400 Body height 177.8 cm Jackie Gaytan [facility]; [facility] Work Phone: 01-24-2015 13:33-0400 Body mass index (BMI) [Ratio] 26.26 kg/m2 Jackie Gaytan [facility]; [facility] Work Phone: 01-24-2015 13:33-0400 Body surface area Derived from formula 2.01 m2 Jackie Gaytan [facility]; [facility] Work Phone: 01-24-2015 13:33-0400 Body temperature 97.2 [degF] Jackie Gaytan [facility]; [facility] Work Phone: 01-24-2015 13:33-0400 Body weight 83.01 kg Jackie Gaytan [facility]; [facility] Work Phone: 01-24-2015 13:33-0400 Diastolic blood pressure 88 mm[Hg] Jackie Gaytan [facility]; [facility] Work Phone: 01-24-2015 13:33-0400 Heart rate 92 /min Jackie Gaytan [facility]; [facility] Work Phone: 01-24-2015 13:33-0400 Respiratory rate 16 /min Jackie Gaytan [facility]; [facility] Work Phone: 01-24-2015 13:33-0400 Systolic blood pressure 124 mm[Hg] Jackie Gaytan [facility]; [facility] Work Phone: 10-31-2014 10:31-0400 Body height 177.8 cm Yulisa Slarb VISUAL DESIGNER [facility]; [facility] Work Phone: 10-31-2014 10:31-0400 Body mass index (BMI) [Ratio] 26.13 kg/m2 Yulisa Slarb VISUAL DESIGN[employer] [facility]; [facility] Work Phone: 10-31-2014 10:31-0400 Body surface area Derived from formula 2.01 m2 Yulisa Slarb VISUAL DESIGNER [facility]; [facility] Work Phone: 10-31-2014 10:31-0400 Body temperature 97.6 [degF] Yulisa Slarb VISUAL DESIGNER [facility]; [facility] Work Phone: 10-31-2014 10:31-0400 Body weight 82.61 kg Yulisa Slarb VISUAL DESIGNER [facility]; [facility] Work Phone: 10-31-2014 10:31-0400 Diastolic blood pressure 80 mm[Hg] Yulisa Slarb VISUAL DESIGNER [facility]; [facility] Work Phone: 10-31-2014 10:31-0400 Heart rate 94 /min Yulisa Slarb VISUAL DESIGNER [facility]; [facility] Work Phone: 10-31-2014 10:31-0400 Respiratory rate 16 /min Yulisa Slarb VISUAL DESIGNER [facility]; [facility] Work Phone: 10-31-2014 10:31-0400 SaO2% (BldA) [Mass fraction] 97 % Yulisa Slarb VISUAL DESIGNER [facility]; [facility] Work Phone: 10-31-2014 10:31-0400 Systolic blood pressure 132 mm[Hg] Yulisa Slarb VISUAL DESIGNER [facility]; [facility] Work [...] 13:27-0400 Body temperature 97.6 [degF] Jackie Gaytan [facility]; [facility] Work Phone: 09-27-2014 13:27-0400 Body weight 83.46 kg Jackie Lukas [facility]; [facility] Work Phone: 09-27-2014 13:27-0400 Diastolic blood pressure 80 mm[Hg] Jackie Gaytan [facility]; [facility] Work Phone: 09-27-2014 13:27-0400 Heart rate 104 /min Jackie Gaytan [facility]; [facility] Work Phone: 09-27-2014 13:27-0400 Respiratory rate 16 /min Jackie Gaytan [facility]; [facility] Work Phone: 09-27-2014 13:27-0400 Systolic blood pressure 132 mm[Hg] Jackie Gaytan [facility]; [facility] Work Phone: 06-27-2014 09:47-0500 Body height 177.8 cm Jackie Gaytan [facility]; [facility] Work Phone: 06-27-2014 09:47-0500 Body mass index (BMI) [Ratio] 27.26 kg/m2 Jackie Gaytan [facility]; [facility] Work Phone: 06-27-2014 09:47-0500 Body surface area Derived from formula 2.04 m2 aJckie Gaytan [facility]; [facility] Work Phone: 06-27-2014 09:47-0500 Body temperature 97.6 [degF] Jackie Gaytan [facility]; [facility] [...] 05-03-2014 10:34-0500 Pulse (Heart Rate) Cordelia Rivera [facility] Work Phone: 02-24-2014 10:05-0400 Body height [...] 09:47-0400 Body height 177.8 cm Faith Hill [facility]; [facility] Work Phone: 10-21-2013 09:47-0400 Body mass index (BMI) [Ratio] 26.26 kg/m2 [facility]; [facility] Work Phone: 10-21-2013 09:47-0400 Body surface area Derived from formula 2.01 m2 Faithtamika Hill [facility]; [facility] Work Phone: 10-21-2013 09:47-0400 Body temperature 96.8 [degF] Faith Janebrendaanand [facility]; [facility] Work Phone: 10-21-2013 09:47-0400 Body weight 83.01 kg [facility]; [facility] Work Phone: 10-21-2013 09:47-0400 Diastolic blood pressure 80 mm[Hg] [facility]; [facility] Work Phone: 10-21-2013 09:47-0400 Heart rate 83 /min [facility]; [facility] Work Phone: 10-21-2013 09:47-0400 Respiratory rate 16 /min [facility]; [facility] Work Phone: 10-21-2013 09:47-0400 SaO2% (BldA) [Mass fraction] 98 % [facility]; [facility] Work Phone: 10-21-2013 09:47-0400 Systolic blood pressure 122 mm[Hg] [facility] Work Phone: 06-30-2013 09:41-0500 Body height 177.8 cm Jackie Gaytan [facility]; [facility] Work Phone: 06-30-2013 09:41-0500 Body mass index (BMI) [Ratio] 27.12 kg/m2 Jackie Gaytan [facility]; [facility] Work Phone: 06-30-2013 09:41-0500 Body surface area Derived from formula 2.04 m2 Jackie Gaytan [facility]; [facility] Work Phone: 06-30-2013 09:41-0500 Body temperature 97.1 [degF] Jackie Gaytan [facility]; [facility] Work Phone: 06-30-2013 09:41-0500 Body weight 85.73 kg Jackie Gaytan [facility]; [facility] Work Phone: 06-30-2013 09:41-0500 Diastolic blood pressure 82 mm[Hg] Jackie Gaytan [facility]; [facility] Work Phone: 06-30-2013 09:41-0500 Heart rate 78 /min Jackie Gaytan [facility]; [facility] Work Phone: 06-30-2013 09:41-0500 Respiratory rate 18 /min Jackie Gaytan [facility]; [facility] Work Phone: 06-30-2013 09:41-0500 Systolic blood pressure 128 mm[Hg] Jackie Gaytan [facility]; [facility] Work Phone: 02-22-2013 09:53-0400 Body height 177.8 cm Jackie Gaytan [facility]; [facility] Work Phone: 02-22-2013 09:53-0400 Body mass index (BMI) [Ratio] 26.4 kg/m2 Jackie Gaytan [facility]; [facility] Work Phone: 02-22-2013 09:53-0400 Body surface area Derived from formula 2.01 m2 Jackie Darby [facility]; [facility] Work Phone: 02-22-2013 09:53-0400 Body temperature 97.2 [degF] Jackie Gaytan [facility]; [facility] Work Phone: 02-22-2013 09:53-0400 Body weight 83.46 kg Jackie Gaytan [facility]; [facility] Work Phone: 02-22-2013 09:53-0400 Diastolic blood pressure 78 mm[Hg] Jackie Gaytan [facility]; [facility] Work Phone: 02-22-2013 09:53-0400 Heart rate 70 /min Jackie Gaytan [facility]; [facility] Work Phone: 02-22-2013 09:53-0400 Respiratory rate 16 /min Jackie Gaytan [facility]; [facility] Work Phone: 02-22-2013 09:53-0400 Systolic blood pressure 122 mm[Hg] Jackie Gaytan [facility]; [facility] Work Phone: 10-22-2012 10:32-0400 Body height 177.8 cm Jackie Gaytan [facility]; [facility] Work Phone: 10-22-2012 10:32-0400 Body mass index (BMI) [Ratio] 26.54 kg/m2 Jackie Gaytan [facility]; [facility] Work Phone: 10-22-2012 10:32-0400 Body surface area Derived from formula 2.02 m2 Jackie Gaytan [facility]; [facility] Work Phone: 10-22-2012 10:32-0400 Body temperature 96.3 [degF] Jackie Gaytan [facility]; [facility] Work Phone: 10-22-2012 10:32-0400 Body weight 83.92 kg Jackie Gaytan [facility]; [facility] [...] Diastolic blood pressure 62 mm[Hg] Jackie Gaytan [facility]; [facility] [...] Systolic blood pressure 132 mm[Hg] Jackie Gaytan [facility]; [facility] Work Phone: 01-15-2011 13:30-0400 Body height 177.8 cm Jackie Gaytan [facility]; [facility] [...] 13:30-0400 Body weight 80.29 kg Jackie Lukas [facility]; [facility] [...] Systolic blood pressure 114 mm[Hg] Jackie Gaytan [facility]; [facility] Work Phone: 10-11-2010 13:10-0400 Body height 177.8 cm Jackie Lukas [facility]; [facility] Work Phone: 10-11-2010 13:10-0400 Body mass index (BMI) [Ratio] 26.11 kg/m2 Jackie Lukas [facility]; [facility] Work Phone: 10-11-2010 13:10-0400 Body surface area Derived from formula 2.01 m2 Jackie Lukas [facility]; [facility] Work Phone: 10-11-2010 13:10-0400 Body temperature 97.3 [degF] Jackie Lukas [facility]; [facility] Work Phone: 10-11-2010 13:10-0400 Body weight 82.56 kg Jackie Lukas [facility]; [facility] Work Phone: 10-11-2010 13:10-0400 Diastolic blood pressure 88 mm[Hg] Jackie Gaytan [facility]; [facility] Work Phone: 10-11-2010 13:10-0400 Heart rate 78 /min Jackie Gaytan [facility]; [facility] Work Phone: 10-11-2010 13:10-0400 Respiratory rate 16 /min Jackie Lukas [facility]; [facility] Work Phone: 10-11-2010 13:10-0400 Systolic blood pressure 122 mm[Hg] Jackie Gaytan [facility]; [facility] Work Phone: 08-28-2010 11:25-0400 Body height 182.88 cm Josi Holloway [facility]; [facility] Work Phone: 08-28-2010 11:25-0400 Body mass index (BMI) [Ratio] 25.09 kg/m2 Josi [facility]; [facility] Work Phone: 08-28-2010 11:25-0400 Body surface area Derived from formula 2.06 m2 Josi [facility]; [facility] Work Phone: 08-28-2010 11:25-0400 Body temperature 98.1 [degF] Josi Holloway [facility]; [facility] Work Phone: 08-28-2010 11:25-0400 Body weight 83.92 kg Josi Holloway [facility]; [facility] Work Phone: 08-28-2010 11:25-0400 Diastolic blood pressure 60 mm[Hg] Josi Holloway [facility]; [facility] Work Phone: 08-28-2010 11:25-0400 Heart rate 72 /min Josi Holloway [facility]; [facility] Work Phone: 08-28-2010 11:25-0400 Respiratory rate 16 /min Josi Holloway [facility]; [facility] Work Phone: 08-28-2010 11:25-0400 Systolic blood pressure 112 mm[Hg] Josi Holloway [facility]; [facility] [...] 13:05-0400 Diastolic blood pressure 70 mm[Hg] Jackie Gyatan [facility]; [facility] Work [...] index (BMI) [Ratio] 25.74 kg/m2 Jackie Gaytan [facility]; [facility] [...] 07-05-2008 07:54-0500 Body height 0 cm Pamela [facility]; [facility] Work Phone: 07-05-2008 07:54-0500 Body temperature 98 [degF] Pamela [facility]; [facility] Work Phone: 07-05-2008 07:54-0500 Body weight 84.45 kg Pamela [facility]; [facility] Work Phone: 07-05-2008 07:54-0500 Diastolic blood pressure 70 mm[Hg] Pamela [facility]; [facility] Work Phone: 07-05-2008 07:54-0500 Head Occipital-frontal circumference 0 cm Pamela [facility]; [facility] Work Phone: 07-05-2008 07:54-0500 Heart rate 91 /min Pamela [facility]; [facility] Work Phone: 07-05-2008 07:54-0500 Respiratory rate 18 /min Pamela [facility]; [facility] Work Phone: 07-05-2008 07:54-0500 SaO2% (BldA) [Mass fraction] 97 % Pamela [facility]; [facility] Work Phone: 07-05-2008 07:54-0500 Systolic blood pressure 120 mm[Hg] Pamela [facility]; [facility] Work Phone: 05-30-2008 13:17-0500 Body height 182.88 cm [facility]; [facility] Work Phone: 05-30-2008 13:17-0500 Body mass index (BMI) [Ratio] 24.73 kg/m2 [facility]; [facility] Work Phone: 05-30-2008 13:17-0500 Body surface area Derived from formula 2.05 m2 [facility]; [facility] Work Phone: 05-30-2008 13:17-0500 Body temperature 98.6 [degF] [facility]; [facility] Work Phone: 05-30-2008 13:17-0500 Body weight 82.7 kg [facility]; [facility] Work Phone: 05-30-2008 13:17-0500 Diastolic blood pressure 78 mm[Hg] [facility]; [facility] Work Phone: 05-30-2008 13:17-0500 Head Occipital-frontal circumference 0 cm [facility]; [facility] Work Phone: 05-30-2008 13:17-0500 Heart rate 76 /min [facility]; [facility] Work Phone: 05-30-2008 13:17-0500 Respiratory rate 18 /min [facility]; [facility] Work Phone: 05-30-2008 13:17-0500 Systolic blood pressure 124 mm[Hg] [facility]; [facility] Work Phone: 04-25-2008 12:58-0500 Body height 0 cm Jackie Gaytan [facility]; [facility] [...] 13:28-0400 Body temperature 97.9 [degF] Jackie Gaytan [facility]; [facility] Work Phone: 01-25-2008 13:28-0400 Body weight 79.83 kg Jackie Gaytan [facility]; [facility] Work Phone: 01-25-2008 13:28-0400 Diastolic blood pressure 78 mm[Hg] Jackie Gaytan [facility]; [facility] Work Phone: 01-25-2008 13:28-0400 Head Occipital-frontal circumference 0 cm Jackie Gaytan [facility]; [facility] [...] 10:51-0400 Body height 182.88 cm Jackie Gaytan [facility]; [facility] Work Phone: 08-09-2007 10:51-0400 Body mass index (BMI) [Ratio] 24.55 kg/m2 Jackie Gaytan [facility]; [facility] [...] Diastolic blood pressure 74 mm[Hg] Jackie Gaytan [facility]; [facility] Work Phone: 08-09-2007 10:51-0400 Head Occipital-frontal circumference 0 cm Jackie Gaytan [facility] [facility] Work Phone: 08-09-2007 10:51-0400 Heart rate 80 /min Jackie Gaytan [facility] Internal Medicine; [facility] Work Phone: 08-09-2007 10:51-0400 Respiratory rate 16 /min Jackie Gaytan [facility] Internal Medicine; [facility] Work Phone: 08-09-2007 10:51-0400 Systolic blood pressure 112 mm[Hg] Jackie Gaytan [facility] Internal Medicine; [facility] [...] 13:14-0400 Body height 182.88 cm Jackie Gaytan [facility] Internal Medicine; [facility] Work Phone: 03-24-2007 13:14-0400 Body mass index (BMI) [Ratio] 24.14 kg/m2 Jackie Gaytan [facility] Internal Medicine; [facility] Work Phone: 03-24-2007 13:14-0400 Body surface area Derived from formula 2.03 m2 Jackie Gaytan [facility] Internal Medicine; [facility] Work Phone: 03-24-2007 13:14-0400 Body temperature 98 [degF] Jackie Gaytan [facility]; [facility] Work Phone: 03-24-2007 13:14-0400 Body weight 80.74 kg Jackie Gaytan [facility] Internal Medicine; [facility] Work Phone: 03-24-2007 13:14-0400 Diastolic blood pressure 88 mm[Hg] Jackie Gaytan [facility] Internal Medicine; [facility] [...] 14:58-0400 Respiratory rate 16 /min Jackie Gaytan [facility] Internal Medicine; [facility] Work Phone: 12-28-2006 14:58-0400 Systolic blood pressure 102 mm[Hg] Jackie Gaytan [facility] Internal Medicine; [facility] Work Phone: 12-16-2006 13:11-0400 Body height 182.88 cm Myrna Rivas [facility] Internal Medicine; [facility] Work Phone: 12-16-2006 13:11-0400 Body mass index (BMI) [Ratio] 23.36 kg/m2 Myrna Rivas [facility] Internal Medicine; [facility] Work Phone: 12-16-2006 13:11-0400 Body surface area Derived from formula 2 m2 Myrna Rivas [facility] Internal Medicine; [facility] [...] Patient encounter procedure Dr. Melody Whitmore MD -[facility] Work Phone: Start: 11-01-2024 End: 11-01-2024 ambulatory Juan Negro PIPELINE CONSTRUCTION INSPECTOR-C Work Phone: [facility] Work Phone: Start: 09-30-2024 End: 09-30-2024 ambulatory Juan Negro PIPELINE CONSTRUCTION INSPECTOR-C Work Phone: [facility] Work Phone: Start: 09-30-2024 End: 09-30-[address] [facility] Start: 09-30-2024 End: 09-30-2024 ambulatory [facility] Facility:[facility] Start: 08-24-2024 End: 08-24-2024 ambulatory [facility] PIPELINE CONSTRUCTION INSPECTOR-C Work Phone: [facility] Work Phone: Start: 08-24-2024 End: 08-24-[address] Yahaira Rangel MD -[facility] Start: 08-24-[address] Yahaira Rangel MD -[facility] Start: 08-24-2024 End: 08-24-2024 ambulatory Yahaira RICE Facility:[facility] Start: 08-22-2024 ambulatory [facility] Facility:[facility] Start: 08-22-[address] Yahaira Rangel MD -[facility] Start: 08-18-2024 ambulatory [place] [facility] Start: 08-17-2024 End: 08-17-2024 ambulatory Juan Negro PIPELINE CONSTRUCTION INSPECTOR-C Work Phone: [facility] Work Phone: Start: 08-17-2024 End: 08-17-[address] Yahaira Rangel MD -[facility] Start: 08-16-2024 End: 08-16-2024 Emergency department patient visit Dr. Butch Barcenas DO Work Phone: -Emergency Department Work Phone: Start: 08-16-2024 End: 08-17-2024 ambulatory [facility] Facility:[facility] Start: 08-04-2024 End: 08-13-2024 Evaluation and management of inpatient OSCAR TURCIOS DO Facility:[facility] Start: 08-02-2024 End: 08-04-[address] DAY NEWBERRY MD Facility:[facility] Start: 07-21-2024 End: 07-21-[address] Day Newberry MD -Laboratory, [place] Work Phone: Start: 07-21-2024 End: 07-21-2024 ambulatory [facility] Facility:[facility] Start: 07-15-2024 End: 07-15-2024 Patient encounter procedure Juan Rodriguez NP-C -Laboratory, [facility] Start: 07-15-2024 End: 07-15-2024 ambulatory [facility] Facility:[facility] Start: 07-07-2024 End: 07-07-2024 ambulatory CORKY HERNANDEZ MD Facility[place] [place] Start: 07-07-2024 End: 07-07-[address] DAY NEWBERRY MD [facility] Start: 07-07-2024 End: 07-07-[address] DAY NEWBERRY MD [facility] Start: 07-07-2024 End: 07-07-2024 ambulatory CORKY HERNANDEZ MD Facility[place] [place] Start: 06-29-2024 ambulatory [facility] Facility:[place] Start: 06-13-2024 End: 06-13-2024 Patient encounter procedure Jackie Ballard NP-C -Laboratory, [place] Work Phone: Start: 06-13-2024 End: 06-13-2024 ambulatory [facility] Facility:[facility] Start: 06-06-2024 ambulatory [facility] Start: 06-06-2024 Non-patient / Non-visit Dr. Lm stacy MD -[facility] Start: 06-06-2024 End: 06-06-2024 Patient encounter procedure Juan Rodriguez PIPELINE CONSTRUCTION INSPECTOR-C -Cardiovascular Services Work Phone: Start: 06-06-2024 End: 06-06-2024 ambulatory [facility] Facility:[facility] Start: 06-03-2024 End: 06-03-2024 Patient encounter procedure Juan Rodriguez PIPELINE CONSTRUCTION INSPECTOR-C -Radiology, [place] Work Phone: Start: 06-03-2024 End: 06-03-2024 ambulatory [facility] Facility:[facility] Start: 05-18-2024 End: 05-18-2024 Patient encounter procedure Jackie Ballard PIPELINE CONSTRUCTION INSPECTOR-C -Laboratory Work Phone: Start: 05-18-2024 End: 05-18-2024 Patient encounter procedure Jackie Ballard PIPELINE CONSTRUCTION INSPECTOR-C -[facility] Work Phone: Start: 05-18-2024 End: 05-18-2024 ambulatory Jackie Ballard Facility:[facility] Start: 05-18-2024 End: 05-18-2024 ambulatory Jackie Ballard Facility:[facility] Start: 05-10-2024 End: 05-10-2024 Patient encounter procedure Juan Rodriguez PIPELINE CONSTRUCTION INSPECTOR-C -Laboratory Work Phone: Start: 05-10-2024 End: 05-10-2024 ambulatory [facility] Facility:[facility] Start: 04-28-2024 Non-patient / Non-visit Dr. Leandra Sol MD -[facility] Work Phone: Start: 04-27-2024 ambulatory [facility] Start: 04-27-2024 Non-patient / Non-visit Taco Driscoll nd, DO -[facility] Start: 04-27-2024 Non-patient / Non-visit Dr. Leandra Sol MD -[facility] Work Phone: Start: 04-26-2024 Non-patient / Non-visit Taco Driscoll nd DO [facility] Start: 04-26-2024 Non-patient / Non-visit Dr. Leandra Sol MD -[facility] Work Phone: Start: 04-26-2024 ambulatory Taco Rose Facility :[facility] Start: 04-25-2024 Non-patient / Non-visit Taco Driscoll nd DO -[facility] Start: 04-25-2024 ambulatory Joanna Sol Facility :[facility] Start: 04-25-2024 End: 04-28-2024 Evaluation and management of inpatient Dr. Joanna Sol MD -Progressive Care Unit Work Phone: Start: 03-29-2024 End: 03-29-2024 ambulatory Jose Chi Jessee Facility:[facility] Start: 03-15-2024 ambulatory Jose Chi [place] [facility] Start: 03-15-2024 End: 03-15-2024 ambulatory Rina Olivier PA Facility:[facility] Start: 03-08-2024 ambulatory Jose Chi [place] [facility] Start: 03-07-2024 ambulatory Melody Pedersenan [facility] Start: 03-07-2024 End: 03-07-2024 ambulatory Rina Olivier PA Facility:[facility] Start: 02-18-2024 End: 02-18-2024 ambulatory Jose Chi [place] [facility] Start: 02-17-2024 End: 02-18-2024 ambulatory Rina Olivier PA Facility:[facility] Start: 01-28-2024 End: 01-28-2024 ambulatory Taco Friend Facility:[facility] Start: 01-21-2024 End: 01-21-2024 ambulatory Jose Chi [place] Facility:[facility] Start: 01-20-2024 End: 01-20-2024 ambulatory Emely Abad [facility] Start: 01-20-2024 End: 01-20-2024 ambulatory Emely Abad Facility:[facility] Start: 01-11-2024 End: 01-11-2024 ambulatory Jose Chi Jessee Facility:[facility] Start: 01-05-2024 ambulatory Jose Chi [place] [facility] Start: 01-05-2024 End: 01-08-2024 Evaluation and management of inpatient Jose Chi Jessee Facility:[facility] Start: 12-31-2023 End: 12-31-2023 ambulatory Jose Chi Jes[place] [facility] Start: 12-30-2023 End: 12-31-2023 ambulatory Jose Chi Jessee Facility:[facility] Start: 12-29-2023 End: 12-29-2023 ambulatory Jose Chi Jessee Facility:[facility] Start: 12-25-2023 End: 12-25-2023 ambulatory Jose Chi Jessee Facility:[facility] Start: 12-16-2023 End: 12-16-2023 ambulatory Jose Chi Jessee Facility:[facility] Start: 12-10-2023 End: 12-10-2023 ambulatory Jose Chi Jessee Facility:[facility] Start: 12-09-2023 End: 12-09-2023 ambulatory Jose Chi Jessee Facility:[facility] Start: 11-30-2023 End: 11-30-2023 ambulatory Jose Chi Jessee Facility:[facility] Start: 10-19-[address] Butch Barcenas DO Work Phone: [facility] Start: 10-06-2023 End: 10-06-[address] Jose Hooks Work Phone: [facility] Work Phone: Start: 10-06-2023 End: 10-06-[address] Jose Hooks Work Phone: [facility]-Laboratory Work Phone: Start: 10-03-2023 Non-patient / Non-visit Dr. Xu Hooks Work Phone: [facility] Inpatient Physicians Work Phone: Start: 10-02-2023 Non-patient / Non-visit Dr. Xu Hooks [facility] Work Phone: Start: 10-01-2023 Non-patient / Non-visit Dr. Xu Hooks Work Phone: [facility] Inpatient Physicians Work Phone: Start: 09-30-2023 End: 10-03-2023 Evaluation and management of inpatient Dr. Jose Hooks [facility] Work Phone: Start: 09-09-2023 End: 09-09-[address] Jose Hooks Work Phone: [facility] Work Phone: Start: 09-09-2023 End: 09-09-[address] Jose Hooks Work Phone: [facility]-Laboratory, y Office 3rd Ctr Start: 09-08-2023 End: 09-08-[address] Jose Hooks Work Phone: [facility] Work Phone: Start: 09-08-2023 End: 09-08-[address] Jose Hooks [facility] Start: 08-18-2023 End: 08-18-[address] Jose Hooks Work Phone: [facility] Vascular Surgery Work Phone: Start: 08-18-2023 Non-patient / Non-visit Dr. Xu Hooks Work Phone: [facility] Start: 08-18-2023 End: 08-18-[address] Jose Hooks Work Phone: [facility] Work Phone: Start: 08-18-2023 End: 08-18-[address] Jose Hooks [facility] Work [facility]: Start: 07-15-2023 End: 07-15-[address] Jose Hooks Work Phone: [facility] Gastroenterology Work Phone: Start: 06-25-2023 End: 06-25-[address] Jose Hooks Work Phone: [facility] Vascular Surgery Work Phone: Start: 06-24-2023 End: 06-24-[address] Jose Hooks Work Phone: [facility] Work Phone: Start: 06-24-2023 End: 06-24-[address] Jose Hooks Work Phone: [facility]-Laboratory, Phy Office 3rd Flr Start: 06-08-2023 End: 06-08-[address] Jose Hooks [facility] Start: 06-03-2023 Non-patient / Non-visit Dr. Xu Hooks Work Phone: [facility] Start: 06-03-2023 End: 06-03-2023 Admission to same day surgery center Dr. Jose Hooks Work Phone: [facility]-Operations Accountant/Special Procedures Work Phone: Start: 05-30-2023 Non-patient / Non-visit Dr. Xu Hooks Work Phone: [facility] Start: 05-30-2023 Non-patient / Non-visit Dr. Xu Hooks Work Phone: [facility] Inpatient Physicians Work Phone: Start: 05-30-2023 Non-patient / Non-visit Dr. Xu Hooks Work Phone: [facility] Start: 05-29-2023 End: 05-30-2023 Evaluation and management of inpatient Dr. Jose Hooks Work [facility] Work [facility]: Start: 05-23-2023 Non-patient / Non-visit Dr. Xu Hooks Work Phone: [facility] Inpatient Physicians Work Phone: Start: 05-22-2023 Non-patient / Non-visit Dr. Xu Hooks Work Phone: [facility] Inpatient Physicians Work Phone: Start: 05-21-2023 Non-patient / Non-visit Dr. Xu Hooks Work Phone: [facility] Start: 05-21-2023 Non-patient / Non-visit Dr. Xu Hooks Work Phone: [facility] Inpatient Physicians Work Phone: Start: 05-20-2023 Non-patient / Non-visit Dr. Xu Hooks Work Phone: [facility] Inpatient Physicians Work Phone: Start: 05-20-2023 End: 05-23-2023 Evaluation and management of inpatient Dr. Jose Hooks Work Phone[facility] Work Phone: Start: 05-06-2023 End: 05-06-[address] oJse Hooks Work Phone: [facility] Work Phone: Start: 05-06-2023 End: 05-06-[address] Jose Hooks Work Phone[facility] Work Phone: Start: 05-04-2023 End: 05-04-[address] Jose Hooks Work Phone: [facility]-Laboratory, Phy Office 3rd Flr Start: 04-20-2023 End: 04-30-[address] Jose Hooks Work Phone: [facility] Work Phone: Start: 04-20-2023 End: 04-30-[address] Jose Hooks Work Phone: [facility]-Cardiac Rehab Work Phone: Start: 04-15-2023 End: 04-15-[address] Jose Hooks Work Phone: [facility] Work Phone: Start: 04-08-[address] Jose ferrell Work Phone: [facility]-Cardiac Rehab Work Phone: Start: 04-08-2023 End: 04-08-[address] Jose Hooks Work Phone: [facility] Work Phone: Start: 04-08-2023 End: 04-08-[address] Jose Hooks [facility]: Start: 03-30-2023 End: 03-31-[address] Jose Hooks Work Phone: [facility]-Cardiac Rehab Work Phone: Start: 02-25-2023 End: 02-28-[address] Jose Hooks Work Phone: [facility] Work Phone: Start: 02-25-2023 End: 02-28-[address] Jose Hooks Work Phone: [facility]-Cardiac Rehab Work Phone: Start: 02-23-[address] Jose ferrell Work Phone: [facility]-Cardiac Rehab Work Phone: Start: 02-17-2023 End: 02-17-[address] Jose Hooks Work Phone: [facility] Work Phone: Start: 02-17-2023 End: 02-17-[address] Jose Hooks Work Phone[facility] Work Phone: Start: 02-11-[address] Jose ferrell Work Phone: [facility]-Cardiac Rehab Work Phone: Start: 02-05-2023 End: 02-05-[address] Jose Hooks Work Phone: [facility] Work Phone: Start: 02-05-2023 End: 02-05-[address] Jose Hooks Work Phone: [facility] Work Phone: Start: 01-28-2023 End: 01-29-[address] Jose Hooks Work Phone: [facility] Work Phone: Start: 01-28-2023 End: 01-29-[address] Jose Hooks Work Phone: [facility]-Cardiac Rehab Work Phone: Start: 01-28-[address] Jose ferrell Work Phone: [facility]-Cardiac Rehab Work Phone: Start: 01-16-[address] Jose ferrell Work Phone: [facility]-Cardiac Rehab Work Phone: Start: 01-15-2023 End: 01-15-[address] Jose Hooks Work Phone: [facility] Work Phone: Start: 01-12-2023 End: 01-12-[address] Jose Hooks Work Phone: [facility] Work Phone: Start: 01-12-2023 End: 01-12-[address] Jose Hooks Work Phone: [facility]-Cardiac Rehab Work Phone: Start: 01-06-2023 Non-patient / Non-visit Dr. Xu Hooks Work Phone: [facility] Start: 01-05-2023 End: 01-06-2023 Evaluation and management of inpatient Dr. Jose Hooks Work Phone: [facility]-Progressive Care Unit Work Phone: Start: 01-05-2023 End: 01-06-[address] Jose Hooks Work Phone: [facility] Work Phone: Start: 01-05-2023 Non-patient / Non-visit Dr. Xu Hooks Work Phone: [facility] Start: 12-24-2022 End: 12-24-[address] Jose Hooks Work Phone: [facility] Work Phone: Start: 12-24-2022 End: 12-24-[address] Jose Hooks Work Phone: [facility]-Laboratory, Phy Office [address] [place] [address] Start: 12-09-2022 End: 12-09-[address] Jose Hooks Work Phone: [facility] Work Phone: Start: 11-17-2022 End: 11-17-2022 Emergency department patient visit Dr. Jose Hooks Work Phone: [facility]-Emergency Department Work Phone: Start: 11-13-2022 Non-patient / Non-visit Dr. Xu Hooks Work Phone: [facility] Start: 11-11-2022 Non-patient / Non-visit Dr. Xu Hooks Work Phone: [facility] Start: 11-11-2022 End: 11-11-[address] Jose Hooks Work Phone: [facility] Work Phone: Start: 11-11-2022 End: 11-11-[address] Jose Hooks [facility] Start: 11-06-2022 End: 11-06-[address] Jose Hooks Work Phone: [facility]-Laboratory Start: 11-04-2022 End: 11-04-[address] Jose Hooks Work Phone: [facility] Start: 10-30-2022 End: 10-30-[address] Jose Hooks Work Phone: [facility] Work Phone: Start: 10-30-2022 End: 10-30-[address] Jose Hooks Work Phone: [facility] Start: 10-29-2022 End: 10-29-[address] Jose Hooks Work Phone: [facility] Work Phone: Start: 10-29-2022 End: 10-29-[address] Jose Hooks Work Phone: [facility]-Physical Therapy Work Phone: Start: 10-29-[address] Jose ferrell Work Phone: [facility]-Physical Therapy Start: 09-09-2022 End: 09-09-[address] Jose Hooks [facility] Start: 08-04-2022 End: 08-04-[address] Jose Hooks Work Phone: [facility] Work Phone: Start: 08-04-2022 End: 08-04-[address] Jose Hooks Work Phone[facility] Start: 07-22-2022 End: 07-22-[address] Jose Hooks Work Phone: [facility] Work Phone: Start: 07-22-2022 End: 07-22-[address] Jose Hooks Work Phone: [facility]-Pulmonary Services/Neurology Start: 07-09-2022 End: 07-09-[address] Jose Hooks Work Phone: [facility] Work Phone: Start: 07-09-2022 End: 07-09-[address] Jose Hooks Work Phone: [facility] Office 3rd Flr Start: 06-26-2022 End: 06-26-[address] Jose Hooks Work Phone: [facility] Start: 06-19-2022 End: 06-19-[address] Jose Hooks Work Phone: [facility] Work Phone: Start: 06-19-2022 End: 06-19-[address] Jose Hooks Work Phone[facility] Office 3rd Flr Start: 04-04-2022 End: 04-04-[address] Jose Hooks Work Phone: [facility] Work Phone: Start: 04-04-2022 End: 04-04-[address] Jose Hooks Work Phone: [facility]-Laboratory Start: 03-18-2022 Non-patient / Non-visit Dr. Xu Hooks Work Phone: [facility] Start: 03-18-2022 End: 03-18-[address] Jose Hooks Work Phone: [facility] Work Phone: Start: 03-18-2022 End: 03-18-[address] Jose Hooks Work Phone: [facility] Start: 01-22-2022 End: 01-22-[address] Jose Hooks Work Phone: [facility] Work Phone: Start: 01-22-2022 End: 01-22-[address] Jose Hooks Work [facility] Start: 01-13-2022 Non-patient / Non-visit Dr. Xu Hooks Work Phone: [facility] Start: 01-13-2022 End: 01-13-[address] Jose Hooks Work [facility] Start: 01-09-2022 End: 01-09-[address] Jose Hooks Work Phone: [facility] Start: 12-25-2021 End: 12-25-[address] Jose Hooks Work Phone: [facility] Start: 12-19-2021 End: 12-19-[address] Jose Hooks Work [facility] Fl[facility] Start: 12-05-2021 End: 12-05-[address] Jose Hooks Work Phone: [facility]-Laboratory Start: 11-14-2021 End: 11-14-[address] Jose Hooks Work Phone: [facility] Start: 10-16-2021 End: 10-16-[address] Jose Hooks Work Phone: [facility] Start: 10-15-2021 End: 10-15-[address] [facility] Start: 10-10-2021 End: 10-10-[address] [facility] Start: 10-07-2021 End: 10-07-[address] Jose Hooks Work Phone: [facility] Start: 10-02-2021 End: 10-02-[address] Jose Hooks Work Phone: [facility] Start: 09-18-2021 End: 09-18-[address] [facility] Start: 09-18-2021 End: 09-18-[address] Jose Hooks Work Phone: [facility] Start: 09-06-2021 End: 09-28-[address] Jose Hooks Work Phone: [facility] Start: 09-06-[address] Jose ferrell Work Phone: [facility] Start: 09-04-[address] Orestes Bates Work Phone: [facility] Start: 08-26-2021 End: 08-29-[address] Javi Bates Work Phone: [facility] Start: 08-26-2021 End: 08-26-[address] Javi Bates Work Phone: [facility]Laboratory, Specimen Start: 08-07-2021 End: 08-07-[address] Javi Bates Work Phone: [facility], y Office 3rd Flr Start: 07-29-2021 End: 07-29-[address] Javi Bates Work Phone: [facility] Start: 07-16-2021 End: 07-16-[address] Javi Bates Work Phone: [facility] Start: 07-09-2021 End: 07-09-[address] Javi Bates Work Phone: [facility] Start: 06-27-2021 End: 06-27-[address] Javi Bates Work Phone: [facility] Start: 06-20-2021 End: 06-20-[address] Javi Bates Work Phone: [facility], y Office 3rd Flr Start: 05-16-2021 Non-patient / Non-visit Dr. Maninder Bates Work Phone: [facility] Start: 05-16-2021 End: 05-16-2021 Emergency department patient visit Dr. Javi Bates Work Phone: [facility]Emergency Department Start: 05-16-2021 End: 05-16-[address] Javi Bates Work Phone: [facility] Start: 05-03-[address] Javi Bates Work Phone: [facility] Out Start: 12-05-2015 End: 12-05-2015 Office [...] [facility] Start: 01-25-2008 End: 01-25-2008 Hserron Fast DO Work Phone: [facility] Start: 02-17-2007 End: 02-17-2007 Sherron Fast DO Work Phone: [facility] [...] knee, four or more views Juan Rodriguez PIPELINE CONSTRUCTION INSPECTOR-C Work Phone: Start: 09-30-2024 Serum inorganic phosphate measurement Juan Rodriguez PIPELINE CONSTRUCTION INSPECTOR-C Work Phone: Start: 08-17-2024 Vitamin D, 25-hydroxy measurement Juan Rodriguez PIPELINE CONSTRUCTION INSPECTOR-C Work Phone: Comment on above: Vitamin D [...] on above: REKHA Mid LAD using Resolute Renwick 2.75x15 mm, REKHA Prox LAD using Resolute Renwick 3.0x38 mm Start: 11-17-2022 Plain chest X-ray [...] SPEC IMEN Performed By: #### T SCR ####[facility] [id number] [address] Start: 02-25-2021 Antibody screen Comment on above: Order Comment: Specimen Type: BLOOD SPEC IMEN Performed By: #### T SCR #### [facility] CLIA [id number] [address] Start: 01-30-2021 History of coronary artery bypass grafting History of coronary artery bypass graft x 3 Dr. Melody Whitmore MD Comment on above: CABG x3- SPRINGER in situ mammary end to arpit e mid LAD, SVG aorta end to side OM1, SVG aorta to PDA Dr. Grewal @ [facility] 02/26/21 Start: 02-11-2017 End: 02-11-2017 Follow Up Appt 6 months Rina Olivier PA-C Work Phone: Start: 02-11-2017 End: 02-11-2017 PFM Rina Olivier PA-C Work Phone: Start: 11-26-2016 End: 11-27-2016 Referral to bonding machine tender Geovanny Michelle MD Start: 11-10-2016 End: 11-11-2016 [...] 05-08-2016 End: 08-01-2016 Echocardiography Cindy A Keyes BOTTLE GAUGER-C Start: 05-08-2016 End: 08-01-2016 Follow Up Appt 3 months Cindy A Keyes BOTTLE GAUGER-C Start: 05-08-2016 End: 05-13-2016 Magnesium [Mass/volume] in Serum or Plasma Cindy A Keyes BOTTLE GAUGER-C Start: 05-08-2016 End: 08-01-2016 MMM Cindy A Keyes BOTTLE GAUGER-C Start: 05-08-2016 End: 05-16-2016 Thyrotropin [Units/volume] in Serum or Plasma Cindy A Keyes BOTTLE GAUGER-C Start: 05-05-2016 End: 08-01-2016 24 hour holter monitor Cindy A Keyes BOTTLE GAUGER-C Start: 05-05-2016 End: 05-05-2016 Ecg routine ecg w/least 12 lds w/i&r Cindy A Keyes BOTTLE GAUGER-C Start: 05-05-2016 End: 05-05-2016 Follow Up Appt Other Cindy A Keyes BOTTLE GAUGER-C Start: 12-05-2015 End: 12-05-2015 Comments: See Note; NOTES: [facility] Physical Therapy [facility] [address] [place] [address] Fax REHABILITATION SERVICES DISCHARGE SUMMARY MR#: [id number] Acct: [id number] Name: KULWANT ANDRADE Rep #: [id number] : 1940 75 From: Vandana Chavez PT, [...] 10-22-2015 End: 10-22-2015 Comments: See Note; NOTES: [facility] Medical Records Department [address] [place] [address] Emergency Department Summary MR#: [id number] Acct: [id number] Name: KULWANT ANDRADE Rep #: [id number] : 1940 75 From: Wilder Lee MD PCP: Sherron Mercer DO Status: [...] etiology. Ke Lee MD T: NTS JOB: [id number] 10/22/15 0828 <Electronically signed by Wilder Lee MD> Date Wilder Lee MD Cosigner Signature (If Indicated): Date CC: Sherron Mercer DO Date Dictated: 10/12/152033 Date Transcribed: 10/12/152033 Bag Machine Set Up Operator: Signed Sherron Mercer DO Work Phone: Start: 10-16-2015 End: 10-16-2015 Comments: See Note; NOTES: [facility] Cardiovascular Services [address] [place] [address] Renal Artery Duplex Ultrasound 10/16/15 0857 MR#: [id number] Acct: [id number] Name: KULWANT ANDRADE Rep #: [id number] : 1940 75 From: Kulwant Epstein MD [...] Date Dictated: 10/16/15 0857 Date Transcribed: 10/16/152148 Bag Machine Set Up Operator: Signed Sherron Mercer DO Work Phone: Start: 10-16-2015 End: 10-16-2015 Comments: See Note; NOTES: [facility] Imaging Services [address] [place] [address] Verdana 4d Nuclear Stress Test - Treadmky MR#: [id number] Acct: [id number] Name: KULWANT ANDRADE Rep #: [id number] : 1940 75 From: Geovanny Michelle MD [...] LVEF of 56%. Geovanny Michelle MD T: [facility] JOB: [id number] 10/16/15 1443 <Electronically signed by Geovanny Michelle MD> Date Geovanny Michelle MD CC: Sherron Umesh FONTAINE Date Dictated: 10/16/15 1146 Date Transcribed: 10/16/15 114 Bag Machine Set Up Operator: Signed Sherron Jorge A Mercer DO Work Phone: Start: 10-08-2015 End: 10-08-2015 Ecg routine ecg w/least 12 lds w/i&r [MEASUREMENTS ANALYSIS] Date of Test: 10/08/2015 14:45:19; Heart Rate: 67; [place] Interval: 184; QRS: 93; QT Interval: 420; Corrected QT Interval (QTc): 432; P Wave [place]: 32; QRS Wave [place]: -14; T Wave [place]: -1; Blood Pressure: 164/104 [ECG DIAGNOSTIC STATEMENTS] Date of Test: 10/08/2015 14:45:19; Summary: Sinus Rhythm WITHIN NORMAL LIMITS Sherron Mercer DO Work Phone: Start: 10-03-2015 End: 10-03-2015 Comments: See Note; NOTES: [facility] Medical Records Department [address] [place] [address] Discharge Instruction 10/01/15 1035 MR#: [id number] Acct: [id number] Name: KULWANT ANDRADE Rep #: [id number] : 1940 75 From: Ajay Frias MD [...] any unexpected problems, contact your doctor. Call [facility] ([phone]) or report to the closest Emergency Room. Call 911 if necessary. 10/03/152334 <Electronically signed by Ajay Frias MD> Date Ajay Frias MD Cosigner Signature (If Indicated): Date CC: Sherron Lei DO Work Phone: Start: 10-03-2015 End: 10-03-2015 Comments: See Note; NOTES: [facility] Medical Records Department [address] [place] [address] Emergency Department Summary MR#: [id number] Acct: [id number] Name: KULWANT ANDRADE Rep #: [id number] : 1940 75 From: Ajay Frias MD PCP: Sherron Mercer DO Status: [facility] ER DATE OF SERVICE: 10/01/2015 ADDENDUM: [...] C: Sherron Mercer DO T: NTS JOB: [id number] 10/03/152334 <Electronically signed by Ajay Frias MD> Date Ajay Frias MD Cosigner Signature (If Indicated): Date CC: Sherron Mercer DO Date Dictated: 10/01/15 1037 Date Transcribed: 10/01/15 1037 Bag Machine Set Up Operator: Signed Sherron Mercer DO Work Phone: Start: 10-01-2015 End: 10-01-2015 Comments: See Note; NOTES: [facility] Imaging Services [address] [place] [address] Verdana 4d CTA Head W/WO Contrast MR#: [id number] Acct: [id number] Name: KULWANT ANDRADE Rep #: [id number] : 1940 M 75 From: Charanjit Smith MD PCP: Sherron Mercer DO Status: REG ER Study: CTA Head W/WO Contrast Date of Exam: 10/01/15 Exam# [id number] Ordering Dr: Wilder Lee MD STUDY: CTA [...] There is no demonstrated aneurysm of the [place]. 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 Decreased attenuation in the right temporal lobe suggestive of prior ischemic change. Mucosal thickening of the right maxillary sinus and ethmoid sinus. IMPRESSION: No acute abnormality is seen. Electronically Signed: Charanjit Smith MD at 8:01 EDT Tel [phone], Service support [phone], CC: Ke Lee MD; Sherron Mercer DO Bag Machine Set Up Operator: Signed Sherron Mercer DO Work Phone: Start: 10-01-2015 End: 10-01-2015 Comments: See Note; NOTES: [facility] Imaging Services [address] [place] [address] Verdana 4d Brain/Head without Contrast MR#: [id number] Acct: [id number] Name: KULWANT ANDRADE Rep #: [id number] : 1940 M 75 From: Charanjit Smith MD PCP: Sherron Mercer DO Status: [facility] ER Study: Brain/Head without Contrast Date of Exam: 10/01/15 Exam# [id number] Ordering Dr: Wilder Lee MD STUDY: CT [...] Charanjit Smith MD at 7:51 EDT Tel [phone], Service support [phone], CC: Ke Lee MD; Sherron Mercer DO Bag Machine Set Up Operator: Signed Sherron Mercer DO Work Phone: Start: 09-19-2015 End: 09-19-2015 Comments: See Note; NOTES: [facility] Physical Therapy [facility] [address] [place] [address]. [address] [place] [address] Fax REHABILITATION SERVICES INITIAL EVALUATION MR#: [id number] Acct: [id number] Name: KULWANT ANDRADE Rep #: [id number] : 1940 75 From: Vandana Chavez PT, [...] to be FAXED BACK to us at [phone] for Medicare purposes. Please let me know [...] 08-08-2015 End: 08-08-2015 Comments: See Note; NOTES: [facility] Imaging Services [address] [place] [address] Verdana 4d Foot min 3 Views MR#: [id number] Acct: [id number] Name: KULWANT ANDRADE Rep #: [id number] : 1940 M 74 From: Charanjit Smith MD PCP: Sherron Mercer DO Status: REG CLI Study: Foot min 3 Views Date of Exam: 08/08/15 Exam# [id number] Ordering Dr: Sehrron Mercer DO STUDY: X-RAY - RIGHT FOOT [...] Charanjit Smith MD at 13:43 EST Tel [phone], Service support [phone], RAD/Foot min 3 Views IMPRESSION: Soft tissue swelling. Vascular calcifications Electronically Signed: Charanjit Smith MD at 13:43 EST Tel [phone], Service support [phone], CC: Sherron Mercer DO Bag Machine Set Up Operator: Signed Sherron Mercer DO Work Phone: Start: 08-08-2015 End: 08-08-2015 Comments: See Note; NOTES: [facility] Imaging Services [facility] [place] [address] Verdana 4d Knee 4 or More Views MR#: [id number] Acct: [id number] Name: KULWANT ANDRADE Rep #: [id number] : 1940 74 From: Charanjit Smith MD PCP: Sherron Mercer DO Status: REG CLI Study: Knee 4 or More Views Date of Exam: 08/08/15 Exam# [id number] Ordering Dr: Sherron Mercer DO STUDY: X-RAY [...] Charanjit Smith MD at 13:41 EST Tel [phone], Service support [phone], RAD/Knee 4 or More Views IMPRESSION: Degenerative arthrosis. Electronically Signed: Charanjit Smith MD at 13:41 EST Tel [phone], Service support [phone], CC: Sherron Mercer DO Bag Machine Set Up Operator: Signed Sherron Mercer DO Work Phone: Start: 03-20-2015 End: 03-20-2015 Documentation of current medications Rina Olivier PA-C Work Phone: Start: 03-20-2015 End: 03-20-2015 Follow Up Appt 6 months Rina Olivier PA-C Work Phone: Start: 03-20-2015 End: 03-20-2015 Follow Up Appt Other Rina Olivier PA-C Work Phone: Start: 03-20-2015 End: 03-20-2015 [facility] Rina Olivier PA-C Work Phone: Start: 03-18-2015 End: 03-18-2015 Comments: See Note; NOTES: [facility] Cardiovascular Services [address] [place] [address] Carotid Duplex Ultrasound 03/15/15 1057 MR#: [id number] Acct: [id number] Name: KULWANT ANDRADE Rep #: [id number] : 1940 74 From: Nils Lopez MD [...] in the left bulb. Procedure Carotid Duplex 19126. Exam performed in department. Interpretation Summary Mild (<50%) stenosis right extracranial internal carotid. Mild (<50%) stenosis left extracranial internal carotid. Flow within the vertebral arteries is antegrade bilaterally. Ordering Physician: Sherron Mercer Performed By: Marie Cortez RVT 03/18/15 1748 Date Nils Lopez MD CC: Sherron Mercer DO Date Dictated: 03/15/15 1057 Date Transcribed: 03/18/151747 Bag Machine Set Up Operator: Signed Sherron Mercer DO Work Phone: Start: [...] 04-18-2014 End: 04-18-2014 Comments: See Note; NOTES: [facility] Cardiovascular Services [address] [facility] [address] Carotid Duplex Ultrasound 04/17/14 1103 MR#: [id number] Acct: [id number] Name: KULWANT ANDRADE Rep #: [id number] : 1940 73 From: Nils Lopez MD [...] Date Dictated: 04/17/14 1103 Date Transcribed: 04/18/142055 Bag Machine Set Up Operator: Signed Sherron Mercer DO Work Phone: Start: 10-10-2013 End: 10-10-2013 Comments: See Note; NOTES: [facility] Medical Records Department [address] [place] [address] Emergency Department Summary MR#: [id number] Acct: [id number] Name: KULWANT ANDRADE Rep #: [id number] : 1940 73 From: Geovanny Arias MD [...] with Ro[facility]phin [facility] IMPRESSION: Urinary tract infection. DISPOSITION: Home, stable condition. Geovanny Arias MD T: NTS JOB: [id number] 10/10/13 0817 <Electronically signed by Geovanny Arias MD> Date Geovanny Arias MD CC: Sherron Mercer DO Date Dictated: 09/25/13 1436 Date Transcribed: 09/25/13 143 Bag Machine Set Up Operator: Signed Sherron Mercer DO Work Phone: Start: 09-25-2013 End: 09-26-2013 Comments: See Note; NOTES: [facility] Medical Records Department [address] [place] [address] Discharge Instruction 09/25/13 1439 MR#: [id number] Acct: [id number] Name: KULWANT ANDRADE Rep #: [id number] : 1940 73 From: Geovanny Arias MD PCP: Sherron Mercer DO Status: [facility] ER ED Disposition - Plan for ED Patient: Chief Complaint: Complaint Instructions: Understanding Urinary Tract Infections (UTIs) Prescriptions: Levofloxacin [Levaquin] 750 mg PO DAILY #5 tablet Referrals: Sherron Mercer DO [Primary Care Provider] - 3-5 Days What to do if you have Problems For any increased pain, shortness of breath, bleeding, nausea or vomiting, chest pain, or any unexpected problems, contact your doctor. Call [facility] ) or report to the closest Emergency Room. Call 911 if necessary. 09/25/13 1440 <Electronically signed by Geovanny Arias MD> Date Geovanny Arias MD CC: Sherron Fast DO Sherron A Fast DO Work Phone: Start: 09-25-2013 End: 09-26-2013 Comments: See Note; NOTES: [facility] Imaging Services [address] [place] [address] CAT Scan Report MR#: [id number] Acct: [id number] Name: KULWANT ANDRADE Rep #: [id number] : 1940 73 From: Rl Langston DO PCP: Sherron Mercer DO Status: REG ER Study: Abdomen/Pelvis without Cont Date of Exam: 09/25/13 Exam# [id number] Ordering Dr: Geovanny Arias MD STUDY: CT [...] DO at 14:14 EDT , Service support [phone], CC: Sehrron Mercer DO; OUT OF TOWN DOCTOR; Geovanny Arias MD Bag Machine Set Up Operator: Signed Sherron Jules Fast DO Work Phone: [...] Work Phone: Start: 01-25-2013 End: 01-25-2013 PFM Rina Olivier PA-C Work Phone: Start: 07-26-2012 End: [...] on knee S/P knee surgery Juan Rodriguez PIPELINE CONSTRUCTION INSPECTOR-C Work Phone: Insertion of inferio r vena caval filter DR DAY NEWBERRY MD Lumbar spinal fusion DR ENRICO NEWBERRY MD Comment on above: L4-L5 Urine culture Dr. Jose Hooks Work Phone: Urine culture Dr. Jose Hooks Work Phone: Urine culture Dr. Jose Hooks Work Phone: Plan of Treatment Date Care Activity Detail Author Start: 11-14-2024 [facility] Start: 08-16-2024 [facility] Start: 04-28-2024 Patient discharge [facility] Start: 04-26-2024 [facility] Start: 04-25-2024 Application of intermittent pneumatic compression device [facility] Start: 04-25-2024 Referral to gastroenterology service [facility] Start: 04-25-2024 Assessment of risk of venous thromboembolism [facility] Start: 04-25-2024 Insertion of catheter into peripheral vein [facility] Start: 04-25-2024 Measuring intake and output [facility] Start: 04-25-2024 Providing care according to standard [facility] Start: 04-25-2024 Referral to occupational therapist [facility] Start: 04-25-2024 Referral to service [facility] Start: 04-25-2024 [facility] Start: 04-25-2024 Following clinical pathway protocol [facility] Start: 04-25-2024 Admission procedure [facility] Start: 10-03-2023 Patient discharge [facility] Start: 10-01-2023 Bacteria identified in Blood by Culture Blood Culture [facility] Start: 10-01-2023 Blood culture [facility] Start: 10-01-2023 [facility] Start: 09-30-2023 Following clinical pathway protocol [facility] Start: 09-30-2023 Application of intermittent pneumatic compression device [facility] Start: 09-30-2023 Assessment of risk of venous thromboembolism [facility] Start: 09-30-2023 Documentation procedure [facility] Start: 09-30-2023 Insertion of catheter into peripheral vein [facility] Start: 09-30-2023 Measuring intake and output [facility] Start: 09-30-2023 Providing care according to standard [facility] Start: 09-30-2023 Provision of activity privileges [facility] Start: 09-30-2023 Referral to service [facility] Start: 09-30-2023 [facility] Start: 09-30-2023 Verification routine [facility] Start: 09-30-2023 Admission procedure [facility] Start: 09-30-2023 Hospital admission, emergency, from emergency room, medical nature [facility] Start: 09-30-2023 Bacteria identified in Urine by Culture [facility] Start: 09-30-2023 [facility] Start: 06-03-2023 Patient discharge [facility] Start: 05-30-2023 Partial thromboplastin time, activated [facility] Start: 05-30-2023 Referral to vascular surgeon [facility] Start: 05-30-2023 Patient discharge [facility] Start: 05-30-2023 Referral to service [facility] Start: 05-29-2023 End: 05-30-2023 [facility] Start: 05-29-2023 Assessment of risk of venous thromboembolism [facility] Start: 05-29-2023 Fall prevention [facility] Start: 05-29-2023 Inhalation therapy procedure [facility] Start: 05-29-2023 Insertion of catheter into peripheral vein [facility] Start: 05-29-2023 Introduction of urinary catheter [facility] Start: 05-29-2023 Measuring intake and output [facility] Start: 05-29-2023 Oxygen therapy [facility] Start: 05-29-2023 Providing care according to standard [facility] Start: 05-29-2023 Provision of activity privileges [facility] Start: 05-29-2023 Referral to gastroenterology service [facility] Start: 05-29-2023 Referral to occupational therapist [facility] Start: 05-29-2023 Referral to service [facility] Start: 05-29-2023 Following clinical pathway protocol [facility] Start: 05-29-2023 Admission procedure [facility] Start: 05-29-2023 Hospital admission, emergency, from emergency room, medical nature [facility] Start: 05-29-2023 Partial thromboplastin time, activated [facility] Start: 05-29-2023 Prothrombin time [facility] Start: 05-29-2023 Esophagogastroduodenoscopy transoral diagnostic EGD DIAGNOSTIC BRUSH WASH [facility] Start: 05-23-2023 Referral to service [facility] Start: 05-23-2023 Patient discharge [facility] Start: 05-22-2023 Procedure [facility] Start: 05-21-2023 Blood chemistry [facility] Start: 05-20-2023 Telemedicine consultation with patient [facility] Start: 05-20-2023 Following clinical pathway protocol [facility] Start: 05-20-2023 Assessment of risk of venous thromboembolism [facility] Start: 05-20-2023 Cardiac monitoring [facility] Start: 05-20-2023 Catheterization of vein [facility] Start: 05-20-2023 Continuous pulse oximetry [facility] Start: 05-20-2023 Electroencephalogram [facility] Start: 05-20-2023 Elevation of head of bed [facility] Start: 05-20-2023 Exercises [facility] Start: 05-20-2023 Implementation of planned interventions [facility] Start: 05-20-2023 Insertion of catheter into peripheral vein [facility] Start: 05-20-2023 Measuring intake and output [facility] Start: 05-20-2023 MRI of brain without contrast Brain without Contrast [facility] Start: 05-20-2023 Notification of physician [facility] Start: 05-20-2023 Oxygen therapy [facility] Start: 05-20-2023 Providing care according to standard [facility] Start: 05-20-2023 Provision of activity privileges [facility] Start: 05-20-2023 Referral to occupational therapist [facility] Start: 05-20-2023 Referral to service [facility] Start: 05-20-2023 Speech therapy assessment [facility] Start: 05-20-2023 Tobacco use cessation education [facility] Start: 05-20-2023 [facility] Start: 05-20-2023 Vital signs measurements [facility] Start: 05-20-2023 Verification routine [facility] Start: 05-20-2023 Admission procedure [facility] Start: 05-20-2023 Oxygen therapy [facility] Start: 05-20-2023 Thyroid stimulating hormone measurement [facility] Start: 01-12-2023 Patient referral to [facility] Start: 01-06-2023 Patient referral [facility] Work Phone: Start: 01-06-2023 Patient discharge [facility] Start: 01-05-2023 Following clinical pathway protocol [facility] Start: 01-05-2023 Admission procedure [facility] Start: 01-05-2023 Ambulation without limitation [facility] Start: 01-05-2023 Cardiac monitoring [facility] Start: 01-05-2023 Cardiac rehabilitation - phase 1 [facility] Start: 01-05-2023 Cardiac rehabilitation - phase 2 [facility] Start: 01-05-2023 Notification of physician [facility] Start: 01-05-2023 Oxygen therapy [facility] Start: 01-05-2023 Patient discharge [facility] Start: 01-05-2023 Provision of activity privileges [facility] Start: 01-05-2023 Taking patient vital signs [facility] Start: 01-05-2023 Vascular disease risk assessment [facility] Start: 01-05-2023 Vital signs measurements [facility] Start: 01-05-2023 End: 01-05-2023 [facility] Start: 07-22-2022 [facility] Start: 08-05-2021 [facility] Start: 10-07-2017 End: 10-07-2017 Appointment Appointment [facility] Work Phone: Start: 05-05-2017 End: 05-05-2017 Appointment Appointment [facility] Work Phone: Start: 04-27-2017 End: 04-28-2017 Colonoscopy flx dx w/collj spec when pfrmd Colonoscopy [facility] Work Phone: Start: 02-11-2017 End: 02-11-2017 Follow Up Appt 6 months Follow Up Appt 6 months [facility] Work Phone: Start: 02-11-2017 End: 02-11-2017 PFM PFM [facility] Work Phone: Start: 11-26-2016 End: 11-26-2016 Nephrology Referral Nephrology Referral Karis Ca, [facility] [address], [place], [address] [facility] Work Phone: Start: 11-10-2016 End: 11-11-2016 Venous doppler Venous doppler [facility] Work Phone: Start: 11-03-2016 End: 11-20-2016 *BMP *BMP [facility] Work Phone: Start: 11-03-2016 End: 11-03-2016 Follow Up Appt 3 months Follow Up Appt 3 months [facility] Work Phone: Start: 11-03-2016 End: 11-03-2016 MMM MMM [facility] Work Phone: Start: 10-14-2016 End: 10-15-2016 Renal doppler Renal doppler [facility] Work Phone: Start: 10-14-2016 End: 10-15-2016 Us abdominal real time w/image limited US Kidney [facility] Work Phone: Start: 09-05-2016 End: 09-08-2016 Ambulatory BP Monitor 24 HR Ambulatory BP Monitor 24 HR [facility] Work Phone: Start: 08-08-2016 End: 2016 *BMP *BMP [facility] Work Phone: Start: 08-08-2016 End: 08-08-2016 Follow Up Appt Other Follow Up Appt Other [facility] Work Phone: Start: 06-13-2016 End: 06-13-2016 Ecg routine ecg w/least 12 lds w/i&r EKG (In office) [facility] Work Phone: Start: 06-13-2016 End: 06-13-2016 Follow Up Appt Other Follow Up Appt Other [facility] Work Phone: Start: 06-13-2016 End: 06-13-2016 MMM MMM [facility] Work Phone: Start: 05-08-2016 End: 05-13-2016 *BMP *BMP [facility] Work Phone: Start: 05-08-2016 End: 05-08-2016 Echocardiography Echocardiogram (complete) [facility] Work Phone: Start: 05-08-2016 End: 08-01-2016 Follow Up Appt 3 months Follow Up Appt 3 months [facility] Work Phone: Start: 05-08-2016 End: 05-13-2016 Magnesium *Magnesium [facility] Work Phone: Start: 05-08-2016 End: 08-01-2016 MMM MMM [facility] Work Phone: Start: 05-08-2016 End: 05-16-2016 Thyroid stimulating hormone (TSH) *TSH [facility] Work Phone: Start: 05-05-2016 End: 05-05-2016 24 hour holter monitor 24 hour holter monitor [facility] Work Phone: Start: 05-05-2016 End: 05-05-2016 Ecg routine ecg w/least 12 lds w/i&r EKG (In office) [facility] Work Phone: Start: 05-05-2016 End: 05-05-2016 Follow Up Appt Other Follow Up Appt Other [facility] Work Phone: Start: 11-21-2015 Provider Instructions for Treatment [facility] Work Phone: Start: 11-07-2015 Provider Instructions for Treatment [facility] Work Phone: Start: 11-07-2015 Basic metabolic panel calcium total [facility] Work Phone: Start: 11-05-2015 End: 11-05-2015 Follow Up Appt 6 months Follow Up Appt 6 months [facility] Work Phone: Start: 11-05-2015 End: 11-05-2015 MMM MMM [facility] Work Phone: Start: 10-24-2015 Procedure Education [facility] [...] 6 months Follow Up Appt 6 months [facility] Work Phone: Start: 03-20-2015 End: 03-20-2015 Follow Up Appt Other Follow Up Appt Other [facility] Work Phone: Start: 03-20-2015 End: 03-20-2015 PFM PFM [facility] Work Phone: Start: 01-24-2015 Procedure [...] 6 months Follow Up Appt 6 months [facility] Work Phone: Start: 09-20-2014 End: 09-20-2014 MMM MMM [facility] Work Phone: Start: 05-03-2014 End: 05-03-2014 Ecg routine ecg w/least 12 lds w/i&r EKG (In office) [facility] Work Phone: Start: 05-03-2014 End: 05-03-2014 Follow Up Appt Other Follow Up Appt Other [facility] Work Phone: Start: 05-03-2014 End: 05-03-2014 PFM PFM [facility] Work Phone: Start: 03-06-2014 Patient Education [facility] Work Phone: Start: 02-24-2014 Procedure Education [facility] Work Phone: Start: 10-21-2013 Patient Education [facility] Work Phone: Start: 09-19-2013 End: 09-19-2013 Follow Up Appt 6 months Follow Up Appt 6 months [facility] Work Phone: Start: 09-19-2013 End: 09-19-2013 MMM MMM [facility] Work Phone: Start: 06-30-2013 Provider Instructions for Treatment [facility] Work Phone: Start: 01-25-2013 End: 01-25-2013 Ecg routine ecg w/least 12 lds w/i&r EKG (In office) [facility] Work Phone: Start: 01-25-2013 End: 01-25-2013 Follow Up Appt 6 months Follow Up Appt 6 months [facility] Work Phone: Start: 01-25-2013 End: 01-25-2013 Follow Up Appt Other Follow Up Appt Other [facility] Work Phone: Start: 01-25-2013 End: 01-25-2013 PFM PFM [facility] Work Phone: Start: 10-22-2012 Patient Education [facility] Work Phone: Start: 07-26-2012 End: 07-26-2012 Follow Up Appt 6 months Follow Up Appt 6 months [facility] Work Phone: Start: 07-26-2012 End: 07-26-2012 MMM MMM [facility] Work Phone: Start: 06-19-2012 25 hydroxy includes [...] w/least 12 lds w/i&r EKG (In office) [facility] Work Phone: Start: 01-16-2012 End: 01-16-2012 Echocardiography Echocardiogram (complete) [facility] Work Phone: Start: 01-16-2012 End: 01-17-2013 Follow Up Appt 6 months Follow Up Appt 6 months [facility] Work Phone: Start: 12-09-2011 Patient [...] Internal Medicine Work Phone: Anion gap measurement [facility] Antibody to lupus La protein measurement [facility] Antibody to SS-A measurement [facility] Bacteria identified in Urine by Culture Urine Culture [facility] Blood ammonia measurement [facility] Brain natriuretic pe ptide measurement [facility] BUN/Creatinine ratio [facility] Calcium [Mass/volume ] in Serum or Plasma [facility] Carbon dioxide, tota l [Moles/volume] in Serum or Plasma [facility] Centromere protein B Ab [Units/volume] in Serum [facility] Chloride [Moles/volu me] in Serum or Plasma [facility] Cholesterol [Mass/vo lume] in Serum or Plasma [facility] Cholesterol in HDL [ Mass/volume] in Serum or Plasma [facility] Cholesterol in LDL [ Mass/volume] in Serum or Plasma [facility] Chromatin Ab [Units/ volume] in Serum or Plasma [facility] Comprehensive metabo lic 2000 panel - Serum or Plasma [facility] Creatinine [Moles/vo lume] in Serum or Plasma [facility] DNA double strand Ab [Units/volume] in Serum [facility] Glucose [Mass/volume ] in Serum or Plasma [facility] INR in Blood by Coagulation assay [facility] Rosa-1 extractable nuc lear Ab [Units/volume] in Serum [facility] Lipid 1995 panel - S justine or Plasma [facility] Lipid 1995 panel - S justine or Plasma [facility] Lipid 1995 panel - S [facility] or Plasma [facility] Measurement of renal function [facility] Nuclear Ab [Presence] in Serum [facility] Patient Education [facility] Work Phone: Patient referral [facility] Work Phone: Potassium [Moles/vol ume] in Serum or Plasma [facility] Radionuclide imaging of perfusion of myocardium under exercise stress [facility] SCL-70 extractable n uclear Ab [Units/volume] in Serum by Immunoassay [facility] Cam extractable nu clear Ab [Presence] in Serum [facility] Sodium [Moles/volume ] in Serum or Plasma [facility] Triglycerides measurement [facility] Urea nitrogen [Mass/ volume] in Serum or Plasma [facility] US Heart [facility] VLDL cholesterol measurement [facility] [...] Internal Medicine; [facility] Work Phone: [facility] Immunizations Immunization Date Immunization Notes Care Provider Fa cility 05-09-2023 RSV Adult Recombinan t (Arexvy) Dr. Butch Barcenas DO Work Phone: [facility] 10-09-2021 Covid (Moderna) Dr. Butch ramirez DO Work Phone: [facility] 05-22-2021 Covid (Moderna) Dr. Butch ramirez DO Work Phone: [facility] 03-06-2021 influenza, injectabl e, quadrivalent, preservative free Dr. Jose Hooks Work Phone: [facility] 03-06-2021 influenza, seasonal, injectable Dr. Javi Bates Work Phone: [facility] 03-06-2021 Seasonal, quadrivale nt, recombinant, injectable influenza vaccine, preservative free Dr. Butch Barcenas DO Work Phone: [facility] 01-29-2021 Covid (Gus & Gus) Dr. Javi Bates Work Phone: [facility] 12-26-2020 tetanus toxoid, redu parth diphtheria toxoid, and acellular pertussis vaccine, adsorbed Dr. Butch Barcenas DO Work Phone: [facility] 12-19-[address] Butch Barcenas DO Work Phone: [facility] 12-17-2020 pneumococcal polysaccharide vaccine, [address] Butch Barcenas DO Work Phone: [facility] 07-30-2020 Covid (Moderna) Dr. Javi Bates Work Phone: [facility] 02-20-2009 influenza, seasonal, injectable Sherron Fast DO Work Phone: [facility] Work Phone: 02-20-2009 pneumococcal polysaccharide vaccine, 23 valent Sherron Fast DO Work Phone: [facility] Work Phone: Payers Date Payer Category Payer Medicare [id number] 2024 Private Health Insurance [id number] 2023 Self-pay [id number] 2023 Private Health Insurance [id number] 2007 Unknown [id number] 1940 Unknown [id number] 2.16.8 40.1.015371.3.579.2.627 1940 Unknown [id number] 2.16.8 40.1.340535.3.579.2.627 1942 Unknown [id number] 2.16.8 40.1.577938.3.579.2.627 1942 Unknown [id number] 2.16.8 40.1.706620.3.579.2.627 Unknown Unknown [id number] 2.16.8 40.1.997848.3.579.2.462 Unknown [id number] 2.16.8 40.1.879093.3.579.2.462 Unknown [id number] 2.16.8 40.1.299411.3.579.2.462 Unknown [id number] 2.16.8 40.1.350993.3.579.2.462 Unknown [id number] 2.16.8 40.1.522425.3.579.2.462 Unknown [id number] 2.16.8 40.1.719034.3.579.2.462 Unknown [id number] 2.16.8 40.1.467241.3.579.2.462 Unknown [id number] 2.16.8 40.1.340964.3.579.2.462 Unknown [id number] 2.16.8 40.1.714088.3.579.2.462 Unknown [id number] 2.16.8 40.1.783087.3.579.2.462 Unknown [id number] 2.16.8 40.1.872279.3.579.2.462 Unknown [id number] 2.16.8 40.1.033594.3.579.2.462 Unknown [id number] 2.16.8 40.1.506308.3.579.2.462 Unknown [id number] 2.16.8 40.1.742866.3.579.2.462 Unknown [id number] 2.16.8 40.1.714929.3.579.2.462 Unknown [id number] 2.16.8 40.1.907001.3.579.2.462 Unknown [id number] 2.16.8 40.1.713048.3.579.2.462 Unknown [id number] 2.16.8 40.1.426441.3.579.2.462 Unknown [id number] 2.16.8 40.1.216491.3.579.2.462 Unknown [id number] 2.16.8 40.1.460976.3.579.2.462 Unknown [id number] 2.16.8 40.1.713835.3.579.2.462 Unknown [id number] 2.16.8 40.1.477280.3.579.2.462 Unknown [id number] 2.16.8 40.1.028649.3.579.2.462 Unknown [id number] 2.16.8 40.1.601312.3.579.2.462 Unknown [id number] 2.16.8 40.1.321577.3.579.2.462 Unknown [id number] 2.16.8 40.1.054441.3.579.2.462 Unknown [id number] 2.16.8 40.1.941919.3.579.2.462 Unknown [id number] 2.16.8 40.1.757006.3.579.2.462 Unknown [id number] 2.16.8 40.1.595259.3.579.2.462 Unknown [id number] 2.16.8 40.1.303090.3.579.2.462 Unknown [id number] 2.16.8 40.1.250479.3.579.2.462 Unknown [id number] 2.16.8 40.1.704391.3.579.2.462 Unknown [id number] 2.16.8 40.1.023529.3.579.2.462 Unknown [id number] 2.16.8 40.1.263875.3.579.2.462 Unknown [id number] 2.16.8 40.1.298247.3.579.2.462 Unknown [id number] 2.16.8 40.1.104328.3.579.2.462 Unknown [id number] 2.16.8 40.1.270247.3.579.2.462 Unknown [id number] 2.16.8 40.1.577174.3.579.2.462 Unknown [id number] 2.16.8 40.1.499800.3.579.2.462 Unknown [id number] 2.16.8 40.1.025010.3.579.2.462 Unknown [id number] 2.16.8 40.1.619546.3.579.2.462 Unknown [id number] 2.16.8 40.1.975470.3.579.2.462 Unknown [id number] 2.16.8 40.1.077158.3.579.2.462 Unknown [id number] 2.16.8 40.1.448534.3.579.2.462 Unknown [id number] 2.16.8 40.1.275741.3.579.2.462 Unknown [id number] 2.16.8 40.1.860529.3.579.2.462 Unknown [id number] 2.16.8 40.1.868873.3.579.2.462 Unknown [id number] 2.16.8 40.1.768340.3.579.2.462 Unknown [id number] 2.16.8 40.1.371088.3.579.2.462 Unknown [id number] 2.16.8 40.1.779688.3.579.2.462 Unknown [id number] 2.16.8 40.1.419091.3.579.2.462 Unknown [id number] 2.16.8 40.1.289013.3.579.2.462 Unknown [id number] 2.16.8 40.1.652138.3.579.2.462 Unknown [id number] 2.16.8 40.1.028333.3.579.2.462 Unknown [id number] 2.16.8 40.1.696963.3.579.2.462 Unknown [id number] 2.16.8 40.1.757390.3.579.2.462 Unknown [id number] 2.16.8 40.1.967793.3.579.2.462 Unknown [id number] 2.16.8 40.1.326638.3.579.2.462 Unknown [id number] 2.16.8 40.1.648538.3.579.2.462 Social History Date Type Detail Facility [facility] Work Phone: Never smoker. [facility] Work Phone: Start: 07-09-2021 End: 05-20-2023 Tobacco smoking status NHIS Unknown if ever smoked [facility] Start: 06-04-2017 None [facility] Start: 1940 Sex Assigned At Male W [facility] Start: 05-23-2023 Non-smoker [facility] Start: 07-07-2024 End: 08-16-2024 Tobacco smoking status Never smoked tobacco (finding) [facility] Sexual Orientation Pardeep Yvan burton [facility] Start: 01-03-2020 End: 10-05-2024 Sex Male (finding) [facility] Medical Equipment Procedure Code Equipment Code Equipment Origin al Text Equipment Identifier Dates Colonoscopy Ligation clip, metallic ()[id number] FDA Start: 04-27-2024 Drug-eluting coronary artery stent, vux-ozhkmhuseatuu-ss lymer-coated ()[id number] FDA Start: 01-05-2023 Drug-eluting coronary artery stent, zhv-jnidnmdvtaaao-ur lymer-coated ()[id number] FDA Start: 01-05-2023 Vena cava filter , temporary/permanent ()[id number] FDA Start: 06-03-2023 Goals Date Patient Goal Desired Activity /State Functional Status Date Assessment Result Facility 07-07-2024 Functional Status Sensory Defici ts Hearing deficit, left ear, Hearing deficit, right ear [facility] 04-28-2024 Functional status Ambulates;Bedside Commo de [facility] Work Phone: 10-03-2023 Functional status Ambulates;Up ad morenita [facility] Work Phone: 05-30-2023 Functional status Ambulates [facility] Work Phone: 05-23-2023 Functional status Activity Abili ty With Assist of 1 [facility] Work Phone: 05-22-2023 Functional status Ambulates [facility] Work Phone: 01-06-2023 Functional status Ambulates [facility] Work Phone: Mental Status Date Assessment Result Facility 08-16-2024 Cognitive function Level Of Cons ciousness Awake;Alert;Appropriate;Follow s Commands [facility] Work Phone: 04-28-2024 Cognitive function Voice/Name [facility] Work Phone: 10-03-2023 Cognitive function Voice/Name [facility] Work Phone: 05-30-2023 Cognitive function Voice/Name [facility] Work Phone: 05-23-2023 Cognitive function Voice/Name [facility] Work Phone: 05-20-2023 Cognitive function Voice/Name [facility] Work Phone: 01-06-2023 Cognitive function Voice/Name [facility] Work Phone: 11-17-2022 Cognitive function Voice/Name [facility] Work Phone: 05-03-2021 Cognitive function Voice/Name [facility] Work Phone: Clinical Notes 10-02-2020 to 11-14-2024 Note Date & Type Note Facility 11-14-2024 Radiology Diagnostic study note [facility] Services [address], [place] [address] Knee 4 or More Views MR#: [id number] Acct: [id number] Name: KULWANT ANDRADE Rep #: [id number] : 1940 M 84 From: Pet er Peer DO PCP: RANI Hdz Status: REG ER Study:Knee 4 or More Views Date of Exam: 11/14/24 Exam# [id number] Ordering Dr: Abbie Good DO PROCEDURE: KNEE [...] arthroplasty without obvious hardware complication. Reading [facility] CC: RANI Rodriguez; Dr. 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 [place], [place] [address] OFFICE VISIT Date of Service: 11/01/24 MR#: [id number] Acct: [id number] Name: KULWANT ANDRADE Rep #: [id number] : 1940 Provider: Dr. Jamel Whitmore MD Age/Sex: 84/M Location: [facility] Status: Signed HPI HPI History of Present [...] NIBP Intake Visit Reasons: 6 M FU Screw Supervisor Required: No Accompanied by: Self Is patient [...] mg tablet 25 mg PO BID BLOOD [place] ESSURE #60 03/21/24 11/01/24 Rx tabs cholecalciferol [...] Cardiology follow-up encounter H/O Legionnaire's disease (~2018) [place] filter in place Kidney stones GI bleed Pulmonary embolism Coronary artery disease TIA (transient ischemic attack) Postoperative atrial fibrillation Atherosclerotic heart disease of [place] coronary artery without angina pectoris CAD (coronary [...] 03/16/2024: Interpretation: There were a total of 307429 beats recorded over the 48 hour period. [...] function LVEF: by LV gram 55 % Elem Multivessel CAD Collateral Flow: left to right [...] AORTIC ROOT: Angiographically normal COMPLICATIONS CABG 02/26/2021 [facility]: SPRINGER to the LAD SVG to OM1 [...] SVG aorta to PDA Dr. Grewal @ [facility] 02/26/21 Plan: See #1 above. (3) [...] 1005 MD> Date _ [facility] Signature: Date (if applicable) CC: PIPELINE CONSTRUCTION INSPECTOR-C Juan Rodriguez ~ [facility]12-18-2024 Evaluation note* Diagnosis Onset Date Resolution Status Admit Date Fatigue acute May 18, 2024 9:43am SOB (shortness of breath) acute May 18, 2024 9:43am GI bleed resolved May 18, 2024 9:43am [facility] Work Phone: 1(723) 305-636311-28-2024 [facility]11-25-2024 Evaluation note* Diagnosis Onset Date Resolution Status Admit Date Acute kidney injury resolved 2023 11:34am GI bleed inactive April 25, 2024 11:34am Fatigue acute May 18, 2024 9:43am SOB (shortness of breath) acute May 18, 2024 9:43am GI bleed resolved May 18, 2024 9:43am [facility] Work Phone: 1(559) 589-700911-25-2024 [facility]08-09-2024 [facility]05-03-2024 Progress note Author Jay Wright [facility] October 02, 2023 1:32pm Note Date/Time October 02, 2023 11:43a m [facility] Medical Records Department [address] [place] [address] Progress Note - Hospitalist 10/02/23 1143 MR#: [id number] Acct: [id number] Name: KULWANT ANDRADE Rep #:[id number] : 1940 83 From: Jay santos DO [...] is an 83-year-old male who presented to [facility] ED on09/30/2023 with gross hematuria. 1. [...] CABG and recent stenting ? Follows with [facility]. Most recent stenting was done [...] 35 minutes. Charges/Coding Visit Charges Inpatient E&M: 43797 Subs Hosp L2 10/02/23 1332 <Electronically signed by Jay Wright DO> Cosigner Signature (if applicable): CC: ~ Signed [facility] Work Phone: 1(698) 132-801405-02-2024 Progress note Author Jay Adriana [facility] October 01, 2023 4:40pm Note Date/Time October 01, 2023 1:46pm [facility] Medical Records Department [address] [place] [address] Progress Note - Hospitalist 10/01/23 1346 MR#: [id number] Acct: [id number] Name: KULWANT ANDRADE Rep #:[id number] : 1940 83 From: Jay santos DO [...] here until 10/04. Patient was admitted to [facility] and again had fevers and chills yesterday [...] ago. Patient was scheduled to follow-up with [facility] on 10/13 and patient and [...] 89.5 H, Lymph % (Auto) 3.0 L, Traill % (Auto) 5.8, Eos % (Auto) 0.0, [...] is an 83-year-old male who presented to [facility] ED on09/30/2023 with gross hematuria. 1. Sepsis secondary to E. coli UTI Initially admitted to [facility], not septic on admission. However, that sepsis [...] maintain MAP greater than 65. Hold on green jobs trainer consult for now, can add as needed. [...] CABG and recent stenting ? Follows with [facility]. Most recent stenting was done [...] 50 minutes. Charges/Coding Visit Charges Inpatient E&M: 27601 Subs Hosp L3 10/01/23 1640 <Electronically signed by Jay Wright DO> Cosigner Signature (if applicable): CC: ~ Signed [facility] Work Phone: 1(872) 515-532605-01-2024 History and physical note Author Galilea Moncada [facility] September 30, 2023 6:36pm Note Date/Time September 30, 2023 4:14pm [facility] System Medical Records Department [address] [place] [address] H&P Exam - Hospitalist 09/30/23 1556 MR#: [id number] Acct: [id number] Name: KULWANT ANDRADE Rep #:[id number] : 1940 83 From: Galilea Pena DO PCP: Dr. Jose Hooks MD Status:ADM I N [facility] - General General Date of Admission: [...] kidney surgery and osteoarthritis who presents to [facility] ER complaining of gross hematuria. Mr. [...] status expected to be greater than 48hours. 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 [...] 82.8 H, Lymph % (Auto) 6.9 L, Traill % (Auto) 9.4, Eos % (Auto) 0.3, [...] Clarity Cloudy, Urine pH 6.5, Ur Specific [place] 1.015, Urine Protein 500 H, Urine Glucose [...] and sensitivity data. Give Tylenol as needed [id number] (level 1-5 out of 10) pain or [...] 75 minutes. Charges/Coding Visit Charges Inpatient E&M: 74548 Init Hosp L3 09/30/23 0817 <Electronically signed by Galilea Lopez DO> Cosigner Signature (if applicable): CC: Dr. Galilea Lopez DO; Dr. Jose Hooks MD~ Signed [facility] Work Phone: 1(483) 974-120705-01-2024 Discharge summary Author Barbara Mathew [facility] September 30, 2023 4:03pm Note Date/Time September 30, 2023 10:08a m [facility] Medical Records Department [address] [place] [address] Emergency Department Summary 09/30/23 MR#: [id number] Acct: [id number] Name: KULWANT ANDRADE Rep #:[id number] : 1940 83 From: Barbara Mathew MD [...] History Acid reflux Atherosclerotic heart disease of [place] coronary artery without angina pectoris Benign neoplasm [...] 82.8 H Lymph % (Auto) 6.9 L Traill % (Auto) 9.4 Eos % (Auto) 0.3 [...] Clarity Cloudy Urine pH 6.5 Ur Specific [place] 1.015 Urine Protein 500 H Urine Glucose [...] your Primary Care Provider. Call [facility] ([phone]) or report to the closest Emergency Room. Call 911 if necessary. 09/30/23 1527 <Electronically signed by Barbara Mathew MD> Cosigner Signature (if applicable): CC: Dr. Jose Hooks MD ~ Signed [facility] Work Phone: 1(475) 844-368105-01-2024 Discharge summary Author Barbara [facility] September 30, 2023 4:03pm Note Date/Time September 30, 2023 10:08a m [facility] System Medical Records Department [address] [place] [address] Emergency Department Summary 09/30/23 MR#: [id number] Acct: [id number] Name: KULWANT ANDRADE Rep #:[id number] : 1940 83 From: Barbara Mathew MD [...] History Acid reflux Atherosclerotic heart disease of [place] coronary artery without angina pectoris Benign neoplasm [...] 82.8 H Lymph % (Auto) 6.9 L Traill % (Auto) 9.4 Eos % (Auto) 0.3 [...] Clarity Cloudy Urine pH 6.5 Ur Specific [place] 1.015 Urine Protein 500 H Urine Glucose [...] your Primary Care Provider. Call [facility] ([phone]) or report to the closest Emergency Room. Call 911 if necessary. 09/30/23 1527 <Electronically signed by Barbara Mathew MD> Cosigner Signature (if applicable): CC: Dr. Jose Hooks MD ~ Signed [facility] Work Phone: 1(539) 791-816812-30-2023 Discharge summary Author Jaya Almanza [facility] May 30, 2023 2:24pm Note Date/Time May 30, 2023 2:24pm [facility] System Medical Records Department [address] [place] [address] Discharge Summary 05/30/23 1420 MR#: [id number] Acct: [id number] Name: KULWANT ANDRADE Rep #:[id number] : 1940 82 From: Jaya Prince PCP: Dr. Jose Hooks MD Status:ADM I N Location: [place] [address] Providers Date of Admission: 05/29/23 Date of Discharge: 05/30/23 Primary Care Physician: Dr. Jose Hooks MD Consultations 05/29/23 17:42 Consult: Gastroenterology Routine Consulting Provider: [facility] Reason for Consult: GI bleed, ABLA [...] 9% proximal RCA, SVG to RPDA patent, [place] RPDA DA 60% distal, small 1.5 mm [...] subcutaneous pen injector (Repatha SureClick) 140 mg [id number] CHOLESTEROL #2 mL 01/15/23 ezetimibe 10 mg [...] (Auto) 69.1, Lymph % (Auto) 13.6 L, Traill % (Auto) 9.2, Eos % (Auto) 6.3 [...] (Auto) 69.6, Lymph % (Auto) 15.0 L, Traill % (Auto) 9.0, Eos % (Auto) 5.0, [...] to go home. Visit Charges Inpatient E&M: 02829 Disch Hosp >30min 05/30/23 1424 <Electronically signed by Jaya Almanza MD> Cosigner Signature (if applicable): CC: Dr. Jaya Almanza MD; Dr. Jose Hooks MD~ Signed [facility] Work Phone: 1(294) 644-405712-30-2023 Discharge summary Author Jaya Almanza [facility] May 30, 2023 2:20pm Note Date/Time May 30, 2023 2:17pm [facility] System Medical Records Department [address] [place] [address] Instructions for Home/Discharge Instructions 05/30/23 1141 MR#: [id number] Acct: [id number] Name: KULWANT ANDRADE Rep #:[id number] : 1940 82 From: Jaya Prince PCP: [...] MD; Dr. Jose Hooks MD ~ Signed [facility] Work Phone: 1(990) 787-967912-30-2023 Consult note Author Taco Rose [facility] May 30, 2023 8:23am Note Date/Time May 30, 2023 8:15am [facility] Medical Records Department [address] [place] [address] Consultation - GI 05/29/23 2300 MR#: [id number] Acct: [id number] Name: KULWANT ANDRADE Rep #:[id number] : 1940 82 From: Taco Rose DO PCP: Dr. Jose Hooks MD Status:ADM I N Location: [place] [address] ADDENDUM by Taco Rose DO on 05/30/23 [...] to home who now re-presents to the [facility] ED on 05/29/23 with history ofonset of [...] positive, typeand screen initiated per ED physician. [facility] Medical History (Updated 05/30/23 @ 08:[address] España Friend, DO) Acid reflux Atherosclerotic heart disease of [place] coronary artery without angina pectoris Benign neoplasm [...] subcutaneous pen injector (Repatha SureClick) 140 mg [id number] CHOLESTEROL #2 mL 01/15/23 [Rx Last Taken [...] (Auto) 69.1, Lymph % (Auto) 13.6 L, Traill % (Auto) 9.2, Eos % (Auto) 6.3 [...] (Auto) 69.6, Lymph % (Auto) 15.0 L, Traill % (Auto) 9.0, Eos % (Auto) 5.0, [...] to home who now re-presents to the [facility] ED on 05/29/23 with history of onset [...] mental status. Charges/Coding Visit Charges Inpatient E&M: 84994 Init Hosp L3 05/30/23 0822 <Electronically signed by Taco Friend DO> Cosigner Signature (if applicable): CC: Dr. Kusum Bishop MD; Dr. Fred Tam MD; Dr. Jose Hooks MD~ Signed [facility] Work Phone: 1(346) 937-388212-30-2023 Procedure [facility] 05-30-2023 Procedure [facility]12-30-2023 Discharge summary Author Fred Tam [facility] May 29, 2023 11:37pm Note Date/Time May 29, 2023 2:34pm [facility] Medical Records Department [address] [place] [address] Emergency Department Summary 05/29/23 MR#: [id number] Acct: [id number] Name: KULWANT ANDRADE Rep #:[id number] : 1940 82 From: Fred Tam MD PCP: Dr. Jose Hooks MD Status:ADM I N Location: [place] [address] HPI HPI - GI History of Present [...] requiring transfusion of several units of blood. [facility] Medical History (Updated 05/29/23 @ 23:[address] 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 [...] subcutaneous pen injector (Repatha SureClick) 140 mg [id number] CHOLESTEROL #2 mL 01/15/23 [Rx Last Taken [...] (Auto) 69.1 Lymph % (Auto) 13.6 L Traill % (Auto) 9.2 Eos % (Auto) 6.3 [...] Management Discussion w/another healthcare provider: Hospitalist and Java Technical Architect (GI friend) Discharge Plan Dx/Rx/DC Orders Clinical Impression: Anticoagulated by anticoagulation treatment, ABLA (acute blood loss anemia), Acute upper gastrointestinal bleeding, Bilateral pulmonary embolism Disposition Disposition: Acute Care Hospital [facility] Discharge Date/Time: 05/29/23 17:16 What to do if you have Problems For any increased pain, shortness of breath, bleeding, nausea or vomiting, chestpain, or any unexpected problems, contact your Primary Care Provider. Call [facility] ([phone]) or report to the closest Emergency Room. Call 911 if necessary. 05/29/23 5250 <Electronically signed by Fred Tam MD> Cosigner Signature (if applicable): CC: Dr. Jose Hooks MD ~ Signed [facility] Work Phone: 1(711) 973-575012-29-2023 History and physical note Author Kusum Bishop [facility] May 29, 2023 6:33pm Note Date/Time May 29, 2023 4:03pm [facility] Medical Records Department [address] [place] [address] H&P Exam - Hospitalist 05/29/23 1601 MR#: [id number] Acct: [id number] Name: KULWANT ANDRADE Rep #:[id number] : 1940 82 From: Kusum Bishop MD PCP: Dr. Jose Hooks MD Status:ADM I N Location: [place] [id number]- 1 HPI - General General Date of [...] to home who now re-presents to the [facility] ED on 05/29/23 with history of onset [...] drip ongoing. ED discussed casewith Dr. Rose. [facility] Medical History (Updated 05/29/23 @ 18:[address] Kusum Bishop MD) Acid reflux Atherosclerotic heart disease of [place] coronary artery without angina pectoris Benign neoplasm [...] subcutaneous pen injector (Repatha SureClick) 140 mg [id number] CHOLESTEROL #2 mL 01/15/23 [Rx Last Taken [...] (Auto) 69.1, Lymph % (Auto) 13.6 L, Traill % (Auto) 9.2, Eos % (Auto) 6.3 [...] to home who now re-presents to the [facility] ED on 05/29/23 with history of onset [...] 9% proximal RCA, SVG to RPDA patent, [place] RPDA DA 60% distal, small 1.5 mm [...] Time: 16minutes. Charges/Coding Visit Charges Inpatient E&M: 74991 Init Hosp L3 Procedures Hospitalists Procedures: 83352 Advncd Care Plan 30 Min 05/29/23 1833 <Electronically signed by Kusum Bishop MD> Cosigner Signature (if applicable): CC: Dr. Kusum Bishop MD; Dr. Jose Hooks MD~ Signed [facility] Work Phone: 1(279) 244-338112-23-2023 Discharge summary Author Lm Delaney [facility] May 23, 2023 11:12am Note Date/Time May 23, 2023 11:06am [facility] System Medical Records Department [address] [place] [address] Discharge Summary 05/23/23 1056 MR#: [id number] Acct: [id number] Name: KULWANT ANDRADE Rep #:[id number] : 1940 82 From: Lm Delaney DO PCP: Dr. Jose Hooks MD Status:ADM I N Location: [place] [address] Providers Date of Admission: 05/20/23 Primary Care [...] subcutaneous pen injector (Repatha SureClick) 140 mg [id number] CHOLESTEROL #2 mL 01/15/23 ezetimibe 10 mg [...] see if you need a referral to tobacco shaker. 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 Options include: [facility] Movement Disorder [phone]. [facility] movement disorder [phone].[facility] [phone]. Discharge Orders/Prescriptions Prescriptions: New Eliquis 5 mg [...] Self Care Charges/Coding Visit Charges Inpatient E&M: 45090 Disch Hosp >30min 05/23/23 1112 <Electronically signed by Lm Delaney DO> Cosigner Signature (if applicable): CC: Dr. Lm Delaney DO; Dr. Jose Hooks MD~ Signed [facility] Work Phone: 1(779) 414-784612-23-2023 Progress note Author Lm [facility] May 23, 2023 10:56am Note Date/Time May 23, 2023 8:15am [facility] System Medical Records Department [address] [place] [address] Progress Note - Hospitalist 05/23/23 0806 MR#: [id number] Acct: [id number] Name: KULWANT ANDRADE Rep #:[id number] : 1940 82 From: Lm Delaney DO PCP: Dr. Jose Hooks MD Status:ADM I N Location: [place] [address] Reason for Visit Reason for Visit: Diagnoses [...] Cosigner Signature (if applicable): CC: ~ Signed [facility] Work Phone: 1(417) 513-220812-22-2023 Consult note Author Deborah Drake [facility] May 22, 2023 7:29pm Note Date/Time May 21, 2023 1:48pm [facility] Medical Records Department [address] [place] [address] Consultation - Neurology 05/21/23 1345 MR#: [id number] Acct: [id number] Name: KULWANT ANDRADE Rep #:[id number] : 1940 82 From: Deborah Drake MD PCP: Dr. Jose Hooks MD Status:ADM I N Location: [place] [address] Assessment and Plan: Neuro Assessment/Plan KULWANT ANDRADE [...] panel, anti-MOG, autoimune encephalitis panel (sendout lab), [id number], HIV, RPR, lyme - send UDS - recommend LP tomorrow with the following labs: cell count, protein, glucose, cytology, flow cytometry, HSV, VSV, VDRL, [place] n[place] virus, lyme, enterovirus, listeria monocytogenies, gram stain, CSF autoimmune panel (sendout lab), RT-QuIC Transfer to [facility] for the following reasons: I personally attended [...] shaking and jerking with standing or eating. 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 Coordination: No dysmetria on urtukj-zoye-siazzd, finger follow finger or gqzz-sjil-ztxb. -? Gait- there is myoclonus with standing, [...] 14:55 EST Reading Location ID and State: [facility] / [place] , Service support , Active Medications Active [...] mls @ 15 mls/hr 05/20/23 12:45 IV .[id number] PRN Additional IVPB Infusion Sodium Chloride 250 mls @ 15 mls/hr 05/20/23 12:45 IV .P71U70T PRN Saline Flush Labetalol HCl 10 - [...] panel, anti-MOG, autoimune encephalitis panel (sendout lab), [id number], HIV, RPR, lyme - send UDS - [...] Parekh DO; Raffaele Bustillos MD ~* Signed [facility] Work Phone: 1(326) 644-868712-22-2023 Consult note Author Deborah Drake [facility] May 22, 2023 7:27pm Note Date/Time May 22, 2023 7:27pm [facility] System Medical Records Department [address] [place] [address] Consultation - Neurology 05/22/231923 MR#: [id number] Acct: [id number] Name: KULWANT ADNRADE Rep #:[id number] : 1940 82 From: Deborah Drake MD PCP: Dr. Jose Hooks MD Status:ADM I N Location: [place] [address] Assessment and Plan: Neuro Assessment/Plan Assessment/Plan KULWANT [...] KHANH, paraneoplastic panel, anti-MOG, autoimune encephalitis panel, [id number]. Please also send: HIV, RPR, lyme - [...] last injection even though it was filled. 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 [...] subcutaneous pen injector (Repatha SureClick) 140 mg [id number] CHOLESTEROL #2 mL 01/15/23 [Rx Last Taken [...] 4 Status: Complete hours and PRN Freq: [id number] Protocol: Activity Type Activity Date Activity User E-sign Co-sign Detail Recorded Client Recorded Date Recorded By Document 05/20/23 13:29 ME Desktop 05/20/23 13:46 ME 05/20/23 13:29 NIH Stroke Scale [NIHSS] A [...] 13:09 EST Reading Location ID and State: [facility] / [place] Tel , Service support , Active Medications [...] 75 Mg Tablet PO 75 mg DAILY VASIEL Administration Ezetimibe 10 mg 05/21/23 10:00 05/22/23 09:31 Ezetimibe 10 Mg Tablet PO 10 mg DAILY VASILE Administration Hydralazine HCl 5 mg 05/20/23 12:36 Hydralazine 20 Mg/Ml Vial IV Q30M PRN to maintain BP goals Sodium Chloride 250 mls @ 15 mls/hr 05/20/23 12:45 IV .[id number] PRN Additional IVPB Infusion Sodium Chloride 250 mls @ 15 mls/hr 05/20/23 12:45 IV .Z25K09L PRN Saline Flush Labetalol HCl 10 - [...] MD; Ilene Parekh DO; Raffaele Bustillos MD~ [facility] Work Phone: 1([phone]) 137-405812-22-2023 Progress note Author Lm [facility] May 22, 2023 3:44pm Note Date/Time May 22, 2023 9:00am [facility] Medical Records Department [address] [place] [address] Progress Note - Hospitalist 05/22/23 0849 MR#: [id number] Acct: [id number] Name: KULWANT ANDRADE Rep #:[id number] : 1940 82 From: Lm Delaney DO PCP: Dr. Jose Hooks MD Status:ADM I N Location: [place] [address] Reason for Visit Reason for Visit: Diagnoses [...] UDS, KHANH, ESR, anti-MOG, autoimmune encephalitis panel: [id number], HIV, RPR, Lyme. LP (will need to [...] the encounter. Charges/Coding Visit Charges Inpatient E&M: 48205 [facility] Hosp 05/22/23 1544 <Electronically signed by Lm Delaney DO> Cosigner Signature (if applicable): CC: ~ Signed [facility] Work Phone: 1(842) 848-899512-21-2023 Progress note Author Lm [facility] May 21, 2023 1:34pm Note Date/Time May 21, 2023 8:53am [facility] Medical Records Department [address] [place] [address] Progress Note - Hospitalist 05/21/23 0850 MR#: [id number] Acct: [id number] Name: KULWANT ANDRADE Rep #:[id number] : 1940 82 From: Lm Delaney DO PCP: Dr. Jose Hooks MD Status:ADM I N Location: [place] [address] Reason for Visit Reason for Visit: Diagnoses [...] 79.6 H, Lymph % (Auto) 9.3 L, Traill % (Auto) 8.9, Eos % (Auto) 1.0, [...] Clarity Clear, Urine pH 7.0, Ur Specific [place] 1.010, Urine Protein 15 H, Urine Glucose [...] Reading Location ID and State: 603 / [employer] , Service support , Head/Neck CTA 05/20/23 08:42 IMPRESSION: Atherosclerotic calcific plaques at the origin of the left internal carotid artery causing between 50 and 69% stenosis. Mild calcific plaque at the origin of the right internal carotid artery causing less than 50% stenosis. Electronically Signed: Charanjit Smith MD at 9:08 EST Reading Location ID and State: [employer] / [employer] , Service support , ADDENDUM: 05/20/23 0916 [...] full code. Charges/Coding Visit Charges Inpatient E&M: 90330 Subs Hosp L2 05/21/23 1334 <Electronically signed by Lm Delaney DO> Cosigner Signature (if applicable): CC: ~ Signed [facility] Work Phone: 1(362) 751-328612-20-2023 Discharge summary Author Rl Chairezehne [facility] May 20, 2023 3:25pm Note Date/Time May 20, 2023 9:07am [facility] Medical Records Department [address] [place] [address] Emergency Department Summary 05/20/23 MR#: [id number] Acct: [id number] Name: KULWANT ANDRADE Rep #:[id number] : 1940 82 From: Rl Scott PCP: Dr. Jose Hooks MD Status:ADM I N Location: [place] [address] HPI History of Present Illness Chief Complaint: [...] on a blood thinner other than aspirin. 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 N.B. : The above Results were Read Back by Charanjit Smith MD to Rl Cadena and understanding confirmed on 05/20/2023 09:01:17 (ET). Electronically Signed: Charanjit Smith MD at 9:03 EST Reading Location ID and State: 603 / [employer] , Service support , Head/Neck CTA 05/20/23 08:42 IMPRESSION: Atherosclerotic calcific plaques at the origin of the left internal carotid artery causing between 50 and 69% stenosis. Mild calcific plaque at the origin of the right internal carotid artery causing less than 50% stenosis. Electronically Signed: Charanjit Smith MD at 9:08 EST Reading Location ID and State: 603 / [employer] , Service support , ADDENDUM: 05/20/23 0916 [...] your Primary Care Provider. Call [facility] ([phone]) or report to the closest Emergency Room. Call 911 if necessary. 05/20/23 5457 <Electronically signed by Rl Cadena DO> Cosigner Signature (if applicable): CC: Dr. Jose Hooks MD ~ Signed [facility] Work Phone: 1(441) 175-530012-20-2023 History and physical note Author Lm Delaney [facility] May 20, 2023 12:30pm Note Date/Time May 20, 2023 12:30pm [facility] Medical Records Department [address] [place] [address] H&P Exam - Hospitalist 05/20/23 1221 MR#: [id number] Acct: [id number] Name: KULWANT ANDRADE Rep #:[id number] : 1940 82 From: Lm Delaney DO PCP: Dr. Jose Hooks MD Status:ADM I N [facility] HPI - General General Date [...] service was contacted and patient being hospitalized. 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 Charges/Coding Visit Charges Inpatient E&M: 35176 Init Hosp L3 05/20/23 1230 <Electronically signed by Lm Delaney DO> Cosigner Signature (if applicable): CC: Dr. Lm Delaney DO; Dr. Jose Hooks MD~ Signed [facility] Work Phone: 1(467) 185-961108-30-2023 Discharge summary Author Bindu Schofield [facility] January 28, 2023 3:40pm Note Date/Time January 28, 2023 3: 31pm [facility] Physical Therapy [facility] [address] [place] [address]. [address] [place] [address] / REHABILITATION SERVICES DISCHARGE SUMMARY MR#: [id number] Acct: [id number] Name: ANDRADEKULWANT Sheth Rep #: [id number] : 1940 82 From: Cert. SANTHOSH Moya, CONNIE Referring Dr.: Dr. Jose Hooks MD Status: REG [facility] Insurance: [facility] SELF PAY INSURANCE Patient Information Patient Information: [...] by Eron Queen PT. SANTHOSH, CONNIE> 01/28/23 2645 CC: Dr. Jose Hooks MD ~ WAI Signed [facility] Work Phone: 1(814) 117-250811-04-2021 NoteHNO ID: [id number] Author: Kirby Izquierdo APRN.RUBBER CHEMIST Service: ? Author Type: Nurse Practitioner Type: [...] circumflex. He has no previous history of MT. ?There was a vague history of cardiomyopathy in the past. Pt has undergone some sort of ablation at [facility] in the remote past, but does not [...] dysuria. Musculoskeletal: Negative fo (more content not included)...[facility]10-15-2021 NoteHNO ID: [id number] Author: Yancy Shipman APRN.EDWARD Service: ? 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 He has no previous history of MT. ?There was a vague history of cardiomyopathy in the past. Pt has undergone some sort of ablation at [facility] in the remote past, but does not [...] HISTORY OF excision of (more content not included)...[facility]10-05-2021 NoteHNO ID: [id number] Author: Cleopatra Walton RN Service: Care Management Author Type: Registered Nurse Type: Care Mgt Progress Note Filed: 03/05/2021 3:12 PM Note Text: CARE MANAGEMENT DISCHARGE NOTE SERVICE DATE: 03/05/2021 SERVICE TIME: 3:00 PM LOS: 10 days Admission Date: 02/23/2021 DISCHARGE ARRANGEMENT (list agency and phone number) Discharge Arrangement: [facility] facility Was an expedited discharge program used?: No Provider Name: [facility] CAREGIVER ASSESSMENT: HANDOFF COMMUNICATION: Handoff to: Primary Care Physician Primary Care Physician Name/Phone: Unknown TRANSPORTATION ARRANGEMENTS: Transportation Arrangements: Ambulance/[facility] [employer] Agency and Phone #:: [facility] ( [facility] ) [phone] / [phone] Date of Trip: 03/05/21 Time of Trip: 1600 Type of Service: Wheelchair Discussion of financial coverage occurred with: Family Career Development Director Location: [facility] Destination: [facility] Financial Care Management Responsibility: None ADDITIONAL CONTACT RESOURCES: None Patient has been discharged to [facility]. [facility] is transporting patient via at 16:00. Patient and his dtr notified. RN aware of discharge time. Discharge orders faxed SIGNATURE: Cleopatra Walton RN PATIENT NAME: Kulwant Andrade DATE: March 05, 2021 TIME: 3:00 PM [facility]TACT [phone] NoteHNO ID: [id number] Author: Isiah Canada RPh Service: Pharmacy Author [...] RPh March 05, 2021 2:47 PM Pager: [phone] 03/05/2021 2:47 PM Medication List START taking [...] known as: PriLOSEC TYLENOL PM EXTRA STRENGTH [facility]10-05-2021 NoteHNO ID: [id number] Author: Yancy Shipman APRN.RUBBER CHEMIST Service: Cardiovascular Surgery Author Type: Nurse Practitioner [...] a 80 year old man, transferred from [facility] s/p [facility] for evaluation of 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 He has no previous history of MT. ?There was a vague history of cardiomyopathy in the past. Pt has undergone some sort of ablation at [facility] in the remote past, but does not [...] is central vascular prominence. (more content not included)...[facility]10-04-2021 NoteHNO ID: [id number] Author: Yancy Shipman APRN.EDWARD Service: Cardiovascular Surgery Author Type: Nurse Practitioner Type: Progress Notes Filed: 03/04/2021 10:25 AM Note Text: CARDIOTHORACIC SURGERY POSTOP PROGRESS NOTE SERVICE DATE: 03/03/2021 SERVICE TIME: 09:30 AM [facility] S/P SURGERY: Procedure(s) (LRB): BYPASS GRAFT ARTERY CORONARY ON-PUMP SINGLE CORONARY ARTERIAL GRAFT (N/A) BYPASS GRAFT ARTERY CORONARY ON-PUMP USING VENOUS GRAFT(S) AND ARTERIAL GRAFT(S); TWO VENOUS GRAFTS (N/A) ENDOSCOPIC HARVEST VEIN FOR CORONARY ARTERY BYPASS PROCEDURE (N/A) DATE OF SURGERY: 02/26/2021 POSTOP DAY #6 LOS: 9 HPI:??This is a 80 year old man, transferred from [facility] s/[facility] for evaluation of 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 He has no previous history of MT. ?There was a vague history of cardiomyopathy in the past. Pt has undergone some sort of ablation at [facility] in the remote past, but does not [...] DATA: Diagnostic tests review (more content not included)...[facility]10-03-2021 NoteHNO ID: [id number] Author: Timo Hooper PA-C Service: Cardiovascular Surgery Author Type: Physician Eyewear Consultant Type: Progress Notes Filed: 03/03/2021 11:26 AM [...] a 80 year old man transferred from [facility] after left heart catheterization for evaluation [...] ?Is undergone some sort of ablation at [facility] in the remote past but [...] 22 18* BUN 2 (more content not included)...[facility]10-02-2021 Note HNO ID: [id number] Author: Owen Rubin RN Service: Nursing Author Type: Registered Nurse Type: Nursing Progress Note Filed: 03/02/2021 3:42 PM Note Text: Pt transferred to [address] [place]10-02-2021 NoteHNO ID: [id number] Author: Bety Swain PA-C Service: Cardiovascular Surgery Author Type: Physician Eyewear Consultant Type: Progress Notes Filed: 03/02/2021 11:42 AM [...] a 80 year old man transferred from [facility] after left heart catheterization for evaluation [...] ?Is undergone some sort of ablation at [facility] in the remote past but [...] bilateral lower lung z (more content not included)...[facility]10-02-2021 NoteHNO ID: [id number] Author: Owen Rubin RN Service: Nursing Author Type: Registered Nurse Type: Nursing Progress Note Filed: 03/02/2021 2:06 PM Note Text: HgB 6.4 FAHEEM Albert aware See [facility]10-[facility]-2021 NoteHNO ID: [id number] Author: Kishore Schwab MD Service: Critical Care [...] 6.9 (02/26/211512) Peak Inspiratory (more content not included)...[facility] 03-01-2021 NoteHNO ID: [id number] Author: Bindu Sheehan PA-C Service: Cardiovascular Surgery Author Type: Physician Eyewear Consultant Type: Progress Notes Filed: 03/01/2021 2:09 PM [...] a 80 year old man transferred from [facility] after left heart catheterization for evaluation [...] ?Is undergone some sort of ablation at [facility] in the remote past but [...] 02/23/21 0515 Admissio (more content not included)... [facility]09-30-2021 NoteHNO ID: [id number] Author: Tameka Nj PA-C Service: Cardiovascular Surgery Author Type: Physician Eyewear Consultant Type: Progress Notes Filed: 02/28/2021 10:29 AM [...] a 80 year old man transferred from [facility] after left heart catheterization for evaluation [...] Is undergone some sort of ablation at [facility] in the remote past but [...] tests reviewed for today's (more content not included)...[facility]09-29-2021 NoteHNO ID: [id number] Author: Kishore Schwab MD Service: Critical Care [...] Respiratory Rate (BPM): 12 (more content not included)...[facility]09-29-2021 NoteHNO ID: [id number] Author: Bindu Sheehan PA-C Service: Cardiovascular Surgery Author Type: Physician Eyewear Consultant Type: Progress Notes Filed: 02/27/2021 9:41 AM [...] and subsequently ended up admitted [facility] spent 9 days in the ICU was [...] 02/22. ?He did undergo cardiac cath in [place] (Dr. Michelle), with results as follow: ? [...] > 4.21 -- W (more content not included)...[facility]09-28-2021 NoteHNO ID: [id number] Author: Lisseth Navarrete RPh Service: Pharmacy Author [...] care for this patient. Signature: Lisseth Navarrete [facility] Pager/Extension: [phone]021 NoteHNO ID: [id number] Author: Emily Ray APRN.MOTOR COACH SUPERVISOR Service: Anesthesiology Author Type: Nurse Formal Service Waiter Type: Anesthesia Procedure Notes Filed: 02/26/2021 10:31 [...] 1 Airway not difficult SIGNATURE: Emily Ray APRN.MOTOR COACH SUPERVISOR PATIENT NAME: Kulwant Andrade DATE: February 26, 2021 TIME: 10:26 AM CSN: [id number]021 NoteHNO ID: [id number] Author: Emily Ray APRN.CRNA Service: Anesthesiology Author Type: Nurse Formal Service Waiter Type: Anesthesia Procedure Notes Filed: 02/26/2021 10:17 AM Note Text: ANESTHESIOLOGY PROCEDURE NOTE A-Line General Information Procedure Start Time/Medication Administration: 02/26/2021 9:53 AM Patient location during procedure: OR Timeout Performed Pre-procedure: timeout performed Indication: continuous blood pressure monitoring Staffing Anesthesiologist: Rodrigo Rubin DO MOTOR COACH SUPERVISOR: Emily Ray APRN.MOTOR COACH SUPERVISOR SRNA: OLAMIDE Chu Performed by: OLAMIDE Preparation [...] February 26, 2021 TIME: 10:17 AM CSN: [id number]021 NoteHNO ID: [id number] Author: Nu Bello DO Service: Hospital Medicine Author Type: Physician Type: Progress Notes Filed: 02/25/2021 7:04 PM Note Text: DEPARTMENT OF HOSPITAL MEDICINE PROGRESS NOTE SERVICE DATE: 02/23/2021 SERVICE TIME: 7:21 PM Hospital Medicine/Primary Attending: Nu Bello DO NIGHT AND WEEKEND COVERAGE: [place] COVERAGE: After 7pm, please call cross cover pager #[phone] Subjective Patient feels well today. Denies CP, [...] 0600 02/23/21 0700 vte current anticoag therapy ([place]) 02/23/21 0700 activity - mobilize patient ([place]) VTE Prophylaxis: currently on heparin drip Disposition: Home Plan of care discussed with: Provider, RN, Patient SIGNATURE: Nu Bello DO PATIENT NAME: Kulwant Andrade DATE: February 05, 2021 TIME: 7:04 PM etx [id number]021 NoteHNO ID: [id number] Author: Kirby Izquierdo APRN.RUBBER CHEMIST Service: Cardiovascular Surgery Author Type: Nurse Practitioner [...] with VKA drugs, such as warfarin, the [place] C (more content not included)...[facility]09-26-2021 NoteHNO ID: [id number] Author: Nu Bello DO Service: Hospital Medicine Author Type: Physician Type: Progress Notes Filed: 02/24/2021 6:50 PM Note Text: DEPARTMENT OF HOSPITAL MEDICINE PROGRESS NOTE SERVICE DATE: 02/23/2021 SERVICE TIME: 7:21 PM Hospital Medicine/Primary Attending: Nu Bello DO NIGHT AND WEEKEND COVERAGE: [place] COVERAGE: After 7pm, please call cross cover pager #[phone] Subjective Patient feels well today. Denies CP, [...] -- 02/23/21 0700 vte current anticoag therapy ([place], [place]) 02/23/21 0700 activity - mobilize patient ([place]) VTE Prophylaxis: currently on heparin drip Disposition: Home Plan of care discussed with: Provider, RN, Patient SIGNATURE: Nu Bello DO PATIENT NAME: Kulwant Andrade DATE: February 24, 2021 TIME: 6:49 PM etx [id number]021 NoteHNO ID: [id number] Author: Nu Bello DO Service: Hospital Medicine Author Type: Physician Type: Progress Notes Filed: 02/23/2021 7:35 PM Note Text: DEPARTMENT OF HOSPITAL MEDICINE PROGRESS NOTE SERVICE DATE: 02/23/2021 SERVICE TIME: 7:21 PM Hospital Medicine/Primary Attending: Nu Bello, NIGHT AND WEEKEND COVERAGE: [place] COVERAGE: After 7pm, please call cross cover pager #[phone] Subjective Patient feels well today. Denies CP, [...] -- 02/23/21 0700 vte current anticoag therapy ([place]) 02/23/21 0700 activity - mobilize patient ([place], [place]) VTE Prophylaxis: currently on heparin drip Disposition: Home Plan of care discussed with: Provider, RN, Patient SIGNATURE: Nu Bello DO PATIENT NAME: Kulwant Andrade DATE: February 23, 2021 TIME: 7:21 PM etx [id number]021 Evaluation note* Diagnosis Onset Date Resolution Status Atherosclerotic heart diseas e of [place] coronary artery without angina pectoris acute History of coronary artery bypass graft x January, acute Postoperative atrial fibrillation acute Essential hypertension chron ic Hyperlipidemia chronic Atherosclerotic heart diseas e of [place] coronary artery without angina pectoris acute History of coronary artery bypass graft x January, acute Postoperative atrial fibrillation acute Essential hypertension chron ic Hyperlipidemia [facility] Work Phone: [phone]) 662-139609-01-2021 Evaluation note* Diagnosis Onset Date Resolution Status Atherosclerotic heart diseas e of [place] coronary artery without angina pectoris acute History of coronary artery bypass graft x January, acute Postoperative atrial fibrillation acute Essential hypertension chron ic Hyperlipidemia chronic Atherosclerotic heart diseas e of [place] coronary artery without angina pectoris acute Diminished pulses in lower extremity acute History of coronary artery bypass graft x January, acute Myalgia acute Postoperative atrial fibrillation acute Essential hypertension chron ic Hyperlipidemia [facility] Work Phone: 1([phone]) 403-208009-01-2021 Evaluation note* Diagnosis Onset Date Resolution Status Atherosclerotic heart diseas e of [place] coronary artery without angina pectoris acute Diminished pulses in lower extremity acute History of coronary artery bypass graft x January, acute Myalgia acute Postoperative atrial fibrillation acute Essential hypertension chron ic Hyperlipidemia [facility] Work Phone: 1(697) 760-569409-01-2021 Evaluation note* Diagnosis Onset Date Resolution Status Atherosclerotic heart diseas e of [place] coronary artery without angina pectoris acute History of coronary artery bypass graft x January, acute Postoperative atrial fibrillation acute Essential hypertension chron ic Hyperlipidemia chronic History of coronary artery bypass graft x January, acute Postoperative atrial fibrillation acute Essential hypertension chron ic Hyperlipidemia [facility] Work Phone: [phone]) 288-709409-01-2021 Evaluation note* Diagnosis Onset Date Resolution Status Atherosclerotic heart diseas e of [place] coronary artery without angina pectoris acute History [...] fibrillation acute Essential hypertension chron ic Hyperlipidemia [facility] Work Phone: [phone]) [phone] Evaluation note* Diagnosis Onset Date Resolution Status Edema acute History of coronary artery bypass graft x January, acute Postoperative atrial fibrillation acute Essential hypertension chron ic Hyperlipidemia chronic History of coronary artery bypass graft x January, acute Postoperative atrial fibrillation acute Essential hypertension chron ic Hyperlipidemia [facility] Work Phone: 1(953) 996-864209-01-2021 Evaluation note* Diagnosis Onset Date Resolution Status History of coronary artery bypass graft x January, acute Postoperative atrial fibrillation acute Essential hypertension chron ic Hyperlipidemia [facility] Work Phone: 1(844) 312-358409-01-2021 Evaluation note* Diagnosis Onset Date Resolution Status Dyspnea on exertion acute History of coronary artery bypass graft x January, acute Chronic kidney disease chron ic Essential hypertension chron ic Hyperlipidemia [facility] Work Phone: [phone]) 132-467309-01-2021 Evaluation note* Diagnosis Onset Date Resolution Status Chronic kidney disease chron ic Dyspnea on exertion chronic Essential hypertension chron ic History of coronary artery bypass graft x January, chronic Hyperlipidemia chronic Chronic kidney disease chron ic Dyspnea on exertion chronic Essential hypertension chron ic History of coronary artery bypass graft x January, chronic Hyperlipidemia [facility] Work Phone: [phone]) 640-408909-01-2021 Evaluation note* Diagnosis Onset Date Resolution Status [...] artery bypass graft x January, chronic Hyperlipidemia [facility] Work Phone: 1(618) 629-906409-01-2021 Evaluation note* Diagnosis Onset Date Resolution Status Essential hypertension chron ic History of coronary artery bypass graft x January, chronic Hyperlipidemia 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, chronic Hyperlipidemia chronic Atherosclerotic heart diseas e of [place] coronary artery without angina pectoris acute Dysarthria acute Stroke acute Essential hypertension chron ic Hyperlipidemia chronic ABLA (acute blood loss anemia) acute Acute upper gastrointestinal bleeding acute Anticoagulated by anticoagulation treatment acute Bilateral pulmonary embolism acute GI bleed acute [facility] Work Phone: [phone]) 272-503709-01-2021 Evaluation note* Diagnosis Onset Date Resolution Status 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 Done [facility]. Prior bonding machine tender: none Creatinine has been abnormal since September [...] or rubs. Abdomen: Norm (more content not included)...[facility]05-13-2021 NoteHNO ID: [id number] Author: Javi Bates MD Service: ? Author Type: Physician Type: Progress Notes Filed: 10/11/2020 4:45 PM Note Text: Chief Complaint Patient presents with: Follow Up Pain: joint pain, ankles, hips Shortness of Breath: onset 07/30/20 after vaccine HPI Kulwant Andrade is a 80 year old male who presents here today for Above Complaints.. 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 He [...] was 7), CRP of 1.3 and positive [facility] Past medical history, appointments, medications, allergies reviewed. [...] on 10/03/2023 MENINGOCOCCAL CONJUGATE (more content not included)...[facility] 10-08-2020 NoteHNO ID: [id number] Author: Martha Flower APRN.RUBBER CHEMIST Service: ? Author Type: Nurse Practitioner Type: [...] (CRP) - KHANH BLOOD - SED RATE [facility] - FOLATE SERUM - B-12 LEVEL (B12) (FOR REMOTE [facility] USE) Follow up pending lab testing or sooner as needed. Discussed treatment plan and patient voices understanding. Mckenzie (more content not included)...[facility]05-04-2021 NoteHNO ID: [id number] Author: Magalys Gutierres APRN.RUBBER CHEMIST Service: ? Author Type: Nurse Practitioner Type: Progress Notes Filed: 10/02/2020 2:57 PM Note Text: This note was created using Edfa3lyriter. Subjective Kulwant Andrade is a 80 year [...] history is provided by the patient. No foreign language professor was used. Musculoskeletal Problem This is [...] Nose: Nose normal. Mouth/Throat: (more content not included)...[facility] note Author Ana Keyes [facility] January 06, 2023 10:26am Note Date/Time January 06, 2023 10: 26am [facility] Medical Records Department [address] [place] [address] Counseling Note - Pharmacy 01/06/23 1025 MR#: [id number] Acct: [id number] Name: KULWANT ANDRADE Rep #:[id number] : 1940 82 From: Ana Keyes PCP: Dr. Jose Hooks MD Status:ADM I NO Y Location: [place] [address] Pharmacy [facility] Pharmacy Service has performed discharge [...] understanding of their dischargemedications. Patient counseled by diploma pharmacy technicianRenetta. Medications at Discharge Home Medications aspirin 81 mg chewable tablet 81 mg PO DAILY [facility] 02/22/21 pantoprazole 40 mg tablet,delayed release 40 mg PO DAILY reflux 30 days #30 tabs1 cholecalciferol (vitamin D3) 25 mcg (1,000 unit) capsule 25 mcg PO DAILY [id number]/27/22 levothyroxine 75 mcg tablet 88 mcg PO DAILY@0600 thyroid 06/26/22 metoprolol tartrate 25 mg tablet 25 mg PO BID blood pressure #180 tabs 08/28/22 evolocumab 140 mg/mL subcutaneous pen injector (Repatha SureClick) 140 mg [id number] cholesterol #2 mL 11/18/22 furosemide 20 mg tablet (Lasix) 20 mg PO DAILY PRN edema, sob, weight gain #60 tabs 11/18/22 amlodipine 2.5 mg tablet 2.5 mg PO DAILY #60 tabs 01/05/23 clopidogrel 75 mg tablet 75 mg PO DAILY #30 tabs 01/05/23 01/06/23 1026 <Electronically signed by Ana Keyes> Date _ Ana Keyes Cosigner Signature (if applicable): Date __ CC: ~ Signed [facility] Work Phone: Discharge summary Author Melody Whitmore [facility] January 06, 2023 11:29am Note Date/Time January 06, 2023 11: 29am [facility] Medical Records Department [address] [place] [address] Instructions for Home/Discharge Instructions 01/06/23 1127 MR#: [id number] Acct: [id number] Name: KULWANT ANDRADE Rep #:[id number] : 1940 82 From: Meoldy Whitmore MD PCP: Dr. Jose Hooks MD [...] CC: Dr. Jose Hooks MD ~ Signed [facility] Work Phone: Discharge summary Author Jay Wright [facility] October 03, 2023 9:30am Note Date/Time October 03, 2023 9:26am [facility] Medical Records Department [address] [place] [address] Instructions for Home/Discharge Instructions 10/03/23925 MR#: [id number] Acct: [id number] Name: KULWANT ANDRADE Rep #:[id number] : 1940 83 From: Jay santos DO [...] DO; Dr. Jose Hooks MD ~ Signed [facility] Work Phone: Discharge summary Author Jay Wright [facility] October 03, 2023 10:59am Note Date/Time October 03, 2023 10:59a m [facility] Medical Records Department [address] [place] [address] Discharge Summary 10/03/23 1050 MR#: [id number] Acct: [id number] Name: KULWANT ANDRADE #:[id number] : 1940 83 From: Jay santos DO PCP: Dr. Jose Hooks MD Status:DIS I N Location: [facility] [place] [id number] Providers Date of Admission: 09/30/23 Date of [...] is an 83-year-old male who presented to [facility] ED on09/30/2023 with gross hematuria. Hospital course as noted below. Patient discharged home with no therapy needs in stable condition on 10/02. 1. Sepsis secondary to E. coli UTI, improving Initially admitted to [facility], not septic on admission. However, that sepsis [...] CABG and recent stenting ? Follows with [facility]. Most recent stenting was done [...] Self Care Charges/Coding Visit Charges Inpatient E&M: 83607 Disch Hosp >30min 10/03/23 1059 <Electronically signed by Jay Wright DO> Cosigner Signature (if applicable): CC: Dr. Jay Wright DO; Dr. Jose Hooks MD~ Signed [facility] Work Phone: Evaluation + Plan note Future Appointments [facility] Evaluation note* Diagnosis Onset Date Resolution Status Dysarthria acute ABLA (acute blood loss anemia) acute Acute upper gastrointestinal bleeding acute Anticoagulated by anticoagulation treatment acute Bilateral pulmonary embolism acute GI bleed resolved Bilateral pulmonary embolism acute S/P insertion of IVC (inferior vena caval) filter acute Barretts esophagus chronic GI bleed resolved S/P insertion of IVC (inferior vena caval) filter acute [facility] Work Phone: Evaluation note* Diagnosis Onset Date Resolution Status Bilateral pulmonary embolism acute S/P insertion of IVC (inferior vena caval) filter acute Barretts esophagus chronic GI bleed resolved S/P insertion of IVC (inferior vena caval) filter acute Hematuria acute [facility] Work Phone: Evaluation note* Diagnosis Onset [...] (acute kidney injury) re solved Sepsis resolved [facility] Work Phone: Evaluation note* Diagnosis Onset Date Resolution Status Bilateral pulmonary embolism acute S/P insertion of IVC (inferior vena caval) filter acute Barretts esophagus chronic GI bleed resolved S/P insertion of IVC (inferior vena caval) filter acute Bladder mass acute UTI (urinary tract infection) acute Adverse drug reaction resolv ed BART (acute kidney injury) re solved Gross hematuria resolved Sepsis resolved [facility] Work Phone: Evaluation noteNo assessment information available [facility] Work Phone: History and physical note Author Lm Delaney [facility] May 20, 2023 12:30pm Note Date/Time May 20, 2023 12:30pm [facility] Medical Records Department [address] [place] [id number] H&P Exam - Hospitalist 05/20/23 1221 MR#: [id number] Acct: [id number] Name: KULWANT ANDRADE Rep #:[id number] : 1940 82 From: mL Delaney DO PCP: Dr. Jose Hooks MD Status:ADM I N Location: [place] [address] HPI - General General Date of Admission: [...] service was contacted and patient being hospitalized. 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 Charges/Coding Visit Charges Inpatient E&M: 87901 Init Hosp L3 05/20/23 1230 <Electronically signed by mL Delaney DO> Cosigner Signature (if applicable): CC: Dr. Lm Delaney DO; Dr. Jose Hooks MD~ Signed [facility] Work Phone: Hospital course Narrative No data available for this section [facility] Hospital Discharge instructionsAmbulatory Orders* Phase II, Outpatient Cardiac Rehab Location: None Selected [facility] Work Phone: Hospital Discharge instructions No data available for this section [facility] Hospital Discharge instructions Additional Instructions May discharge to a SNF.[facility] Work Phone: Hospital Discharge instructions Additional Instructions If you continue to have significant discomfort call the orthopedic surgeons office to see if you can get an appointment sooner than scheduled.[facility] Work Phone: Instructions* Name Dates Details [...] note No data available for this section [facility] Progress note Author Melody Whitmore [facility] Note Date/Time November 01, 2024 10:04 am [facility] ealt System [facility] [address] [place] [address] OFFICE VISIT Date of Service: 11/01/24 MR#: [id number] Acct: [id number] Name: KULWANT ANDRADE Rep #: [id number] : 1940 Provider: Dr. Jamel Whitmore MD Age/Sex: 84/M Location: [facility] [place] Status: Signed HPI HPI History of Present [...] NIBP Intake Visit Reasons: 6 M FU Screw Supervisor Required: No Accompanied by: Self Is patient [...] mg tablet 25 mg PO BID BLOOD [place] ESSURE #60 03/21/24 11/01/24 Rx tabs cholecalciferol [...] Cardiology follow-up encounter H/O Legionnaire's disease (~2018) [place] filter in place Kidney stones GI bleed Pulmonary embolism Coronary artery disease TIA (transient ischemic attack) Postoperative atrial fibrillation Atherosclerotic heart disease of [place] coronary artery without angina pectoris CAD (coronary [...] 03/16/2024: Interpretation: There were a total of 111977 beats recorded over the 48 hour period. [...] function LVEF: by LV gram 55 % Elem Multivessel CAD Collateral Flow: left to right [...] AORTIC ROOT: Angiographically normal COMPLICATIONS CABG 02/26/2021 [facility]: SPRINGER to the LAD SVG to OM1 [...] SVG aorta to PDA Dr. Grewal @ [facility] CC 02/26/21 Plan: See #1 above. (3) [...] MD Cosign Signature: Date (if applicable) CC: PIPELINE CONSTRUCTION INSPECTOR-C Juan Rodriguez ~ [facility] Work Phone: Reason for referral (narrative)No reason for referral information availableWThe [facility] Work Phone: Summary Purpose Family History No [...] Date/ Time Name of Medical Power of Lithographer Helper daughter May 16, 2021 1:22pm Advance Directives Yes January 7:38am Living Will Yes July 09 9:40am Power of Lithographer Helper Yes July 09, 2021 9:40am Advance Directive Response Recorded Date/ Time Advance Directives Yes January 7:38am Living Will Yes July 09 9:40am Power of Lithographer Helper Yes July 09, 2021 9:40am Advance Directive Response Recorded Date/ Time Advance Directives Yes January 6:38am Living Will Yes July 09 8:40am Power of Lithographer Helper Yes July 09, 2021 8:40am Advance Directive Response Recorded Date/ Time Advance Directives No December 15 9:35am Living Will No December 15, 2022 9:35am Power of Lithographer Helper No December 15 9:35am Advance Directive Response Recorded Date/ Time Advance Directives on File Yes 2022 7:21am Name of Medical Power of Lithographer Helper Luna valdez er January 05, 2023 7:21am Advance Directives Yes January 05 023 7:21am Living Will Yes January 05, 2023 7:21am Power of Lithographer Helper Yes January 05 7:21am Advance Directive Response Recorded Date/ Time Advance Directives on File Yes 2022 1:14pm Advance Directives Yes January 05 023 7:21am Living Will Yes January 12 1:14pm Power of Lithographer Helper Yes January 12 023 1:14pm Advance Directives on File Yes 2022 7:21am Name of Medical Power of Lithographer Helper Luna [place] er January 05, 2023 7:21am Advance Directive Response Recorded Date/ Time Advance Directives on File Yes t 2022 12:14pm Advance Directives Yes January 05, 2 023 6:21am Living Will Yes January 12 12:14pm Power of Lithographer Helper Yes January 12, 023 12:14pm Advance Directives on File Yes 2022 6:21am Name of Medical Power of Lithographer Helper Luna daught er January 05, 2023 6:21am Advance Directive Response Recorded Date/ Time Advance Directives on File Yes Augus t 2022 12:14pm Advance Directives Yes January 05, 023 6:21am Living Will Yes January 12 12:14pm Power of Lithographer Helper Yes January 12, 2 023 12:14pm Advance Directive Response Recorded Date/ Time Name of Medical Power of Lithographer Helper luna Mast May 20, 2023 12:37pm Advance Directives Yes January 05, 2 023 6:21am Living Will Yes May 20, 023 12:37pm Power of Lithographer Helper Yes May 20, 2023 12:37pm Advance Directive Response Recorded Date/ Time Name of Medical Power of Lithographer Helper luna Mast May 20, 2023 12:37pm Name of Medical Power of Lithographer Helper Luna Mast May 29, 2023 2:38pm Advance Directives Yes January 05, 2 023 6:21am Living Will Yes May 29 023 2:38pm Power of Lithographer Helper Yes May 29, 2023 2:38pm Advance Directive Response Recorded Date/ Time Name of Medical Power of Lithographer Helper luna Mast May 20, 2023 12:37pm Name of Medical Power of Lithographer Helper Luna Mast May 29, 2023 5:26pm Advance Directives Yes January 05, 2 023 6:21am Living Will Yes May 29, 023 5:26pm Power of Lithographer Helper Yes May 29, 2023 5:26pm Advance Directive Response Recorded Date/ Time Advance Directives on File Yes Junroyce 2023 9:05am Name of Medical Power of Lithographer Helper Luna daught er June 03, 2023 9:05am Advance Directives Yes June 03, 2023 9:05am Living Will Yes June 03 9:05am Power of Lithographer Helper Yes June 03 024 9:05am Name of Medical Power of Lithographer Helper luna Mast May 20, 2023 12:37pm Name of Medical Power of Lithographer Helper Luna Mast May 29, 2023 5:26pm Advance Directive Response Recorded Date/ Time Advance Directives on File Yes 2023 10:05am Name of Medical Power of Lithographer Helper Luna daught er June 03, 2023 10:05am Advance Directives Yes June 03, 2023 10:05am Living Will Yes June 03 10:05am Power of Lithographer Helper Yes June 03 024 10:05am Name of Medical Power of Lithographer Helper luna Mast May 20, 2023 1:37pm Name of Medical Power of Lithographer Helper Luna Mast May 29, 2023 6:26pm Advance Directive Response Recorded Date/ Time Advance Directives on File Yes 2023 10:05am Name of Medical Power of Lithographer Helper Luna daught er June 03, 2023 10:05am Name of Medical Power of Lithographer Helper LUNA MAST September 30, 2023 9:59am Advance Directives Yes June 03, 2023 10:05am Living Will Yes September 30, 2023 9: 59am Power of Lithographer Helper Yes September 30, 2023 9:59am Advance Directive Response Recorded Date/ Time Name of Medical Power of Lithographer Helper LUNA MAST September 30, 2023 5:02pm Advance Directives Yes June 03, 2023 10:05am Living Will Yes September 30, 2023 5: 02pm Power of Lithographer Helper Yes September 30, 2023 5:02pm Advance Directive Response Recorded Date/ Time Living Will Yes April 25, 024 1:55pm Power of Lithographer Helper Yes April 25, 2024 1:55pm Name of Medical Power of Lithographer Helper LUNA MAST April 25, 2024 1:55pm Living Will Yes August 16, 2024 5:42pm Power of Lithographer Helper Yes August 16 5:42pm Name of Medical Power of Lithographer Helper ? August 16, 2024 5:42pm Advance Directives Yes June 03, 2023 10:05am Advance Directive Response Recorded Date/ Time Living Will Yes August 16, 2024 5:42pm Do you have a Healthcare Power of Lithographer Helper? Yes August 16, 2024 5:42pm Name of Medical Power of Lithographer Helper ? August 16, 2024 5:42pm Advance Directives Yes June 03, 2023 10:05am Advance Directive Response Recorded Date/ Time Do you have a Healthcare Power of Lithographer Helper? Yes November 14, 2024 4:00pm Living Will Yes August 16, 2024 5:42pm Do you have a Healthcare Power of Lithographer Helper? Yes August 16, 2024 5:42pm Name of Medical Power of Lithographer Helper ? August 16, 2024 5:42pm Advance Directives Yes June 03, 2023 10:05am Chief Complaint and Reason for Visit Chief Complaint 2 units PRBCS 6 MO F/U (WITH PFM) LEFT LEG 6 wk FU S/P CABG LLE DVT S/P CABG S/P CABG Reason for Visit Atherosclerotic hear t disease of [place] coronary artery without angina pectoris History of coronary artery bypass graft x 3 Postoperative atrial fibrillation Essential hypertension Hyperlipidemia Atherosclerotic heart disease of [place] coronary artery without angina pectoris History of coronary artery bypass graft x 3 Postoperative atrial fibrillation Essential hypertension Hyperlipidemia Chief Complaint 6 MO F/U (WITH PFM) LEFT LEG 6 wk FU S/P CABG LLE DVT S/P CABG S/P CABG S/P CABG Reason for Visit Atherosclerotic hear t disease of [place] coronary artery without angina pectoris History of coronary artery bypass graft x 3 Postoperative atrial fibrillation Essential hypertension Hyperlipidemia Atherosclerotic heart disease of [place] coronary artery without angina pectoris History of coronary artery bypass graft x 3 Postoperative atrial fibrillation Essential hypertension Hyperlipidemia Chief Complaint 6 wk FU S/P CABG LLE DVT S/P CABG S/P CABG S/P CABG 3 M FU Reason for Visit Atherosclerotic hear t disease of [place] coronary artery without angina pectoris History of coronary artery bypass graft x 3 Postoperative atrial fibrillation Essential hypertension Hyperlipidemia Atherosclerotic heart disease of [place] coronary artery without angina pectoris Diminished pulses in lower extremity History of coronary artery bypass graft x 3 Myalgia Postoperative atrial fibrillation Essential hypertension Hyperlipidemia Chief Complaint 6 wk FU S/P CABG LLE DVT S/P CABG S/P CABG S/P CABG 3 M FU CLAUDICATION Reason for Visit Atherosclerotic hear t disease of [place] coronary artery without angina pectoris History of coronary artery bypass graft x 3 Postoperative atrial fibrillation Essential hypertension Hyperlipidemia Atherosclerotic heart disease of [place] coronary artery without angina pectoris Diminished pulses in lower extremity History of coronary artery bypass graft x 3 Myalgia Postoperative atrial fibrillation Essential hypertension Hyperlipidemia Chief Complaint 6 wk FU S/P CABG LLE DVT S/P CABG S/P CABG S/P CABG 3 M FU CLAUDICATION WEAKNESS Reason for Visit Atherosclerotic hear t disease of [place] coronary artery without angina pectoris History of coronary artery bypass graft x 3 Postoperative atrial fibrillation Essential hypertension Hyperlipidemia Atherosclerotic heart disease of [place] coronary artery without angina pectoris Diminished pulses in lower extremity History of coronary artery bypass graft x 3 Myalgia Postoperative atrial fibrillation Essential hypertension Hyperlipidemia Chief Complaint 6 wk FU S/P CABG LLE DVT S/P CABG S/P CABG S/P CABG 3 M FU CLAUDICATION WEAKNESS ACUTE ON CHRONIC RENAL FAILURE Reason for Visit Atherosclerotic hear t disease of [place] coronary artery without angina pectoris History of coronary artery bypass graft x 3 Postoperative atrial fibrillation Essential hypertension Hyperlipidemia Atherosclerotic heart disease of [place] coronary artery without angina pectoris Diminished pulses in lower extremity History of coronary artery bypass graft x 3 Myalgia Postoperative atrial fibrillation Essential hypertension Hyperlipidemia Chief Complaint S/P CABG S/P CABG S/P CABG 3 M FU CLAUDICATION WEAKNESS ACUTE ON CHRONIC RENAL FAILURE WEAKNESS Reason for Visit Atherosclerotic hear t disease of [place] coronary artery without angina pectoris Diminished pulses in lower extremity History of coronary artery bypass graft x 3 Myalgia Postoperative atrial fibrillation Essential hypertension Hyperlipidemia Chief Complaint S/P CABG S/P CABG 3 M FU CLAUDICATION WEAKNESS ACUTE ON CHRONIC RENAL FAILURE WEAKNESS Reason for Visit Atherosclerotic hear t disease of [place] coronary artery without angina pectoris Diminished pulses in lower extremity History of coronary artery bypass graft x 3 Myalgia Postoperative atrial fibrillation Essential hypertension Hyperlipidemia Chief Complaint CLAUDICATION WEAKNESS ACUTE ON CHRONIC RENAL FAILURE WEAKNESS 3 M FU PER MMM BILAT LOWER WEAKNESS BILAT LOWER WEAKNESS Reason for Visit Atherosclerotic hear t disease of [place] coronary artery without angina pectoris History of coronary artery bypass graft x 3 Postoperative atrial fibrillation Essential hypertension Hyperlipidemia History of coronary artery bypass graft x 3 Postoperative atrial fibrillation Essential hypertension Hyperlipidemia Chief Complaint 3 M FU PER MMM BILAT LOWER WEAKNESS BILAT LOWER WEAKNESS L.E. EDEMA SWELLING OF LEGS Reason for Visit Atherosclerotic hear t disease of [place] coronary artery without angina pectoris History of [...] for Visit Atherosclerotic hear t disease of [place] coronary artery without angina pectoris History of [...] SOB WEAKESS CAD PCI w/coronary stenting S/P [facility] 01/01/23 PCI with coronary stent Reason for [...] SOB WEAKESS CAD PCI w/coronary stenting S/P [facility] 01/01/23 PCI with coronary stent VIRAL SYMPTOMS [...] SOB WEAKESS CAD PCI w/coronary stenting S/P [facility] 01/01/23 PCI with coronary stent VIRAL SYMPTOMS [...] SOB WEAKESS CAD PCI w/coronary stenting S/P [facility] 01/01/23 PCI with coronary stent VIRAL SYMPTOMS [...] SOB WEAKESS CAD PCI w/coronary stenting S/P [facility] 01/01/23 PCI with coronary stent VIRAL SYMPTOMS Presence of coronary angioplasty implant and graft PCI with coronary stent PCI with coronary stent E ORDERS PCI with coronary stent Reason for Visit Essential hypertensi on History of coronary artery bypass graft x 3 Hyperlipidemia Chief Complaint SOB WEAKESS CAD PCI w/coronary stenting S/P [facility] 01/01/23 PCI with coronary stent VIRAL SYMPTOMS [...] Chief Complaint PCI w/coronary stent ing S/P [facility] 01/01/23 PCI with coronary stent VIRAL SYMPTOMS [...] x 3 Hyperlipidemia Atherosclerotic heart disease of [place] coronary artery without angina pectoris Dysarthria Stroke [...] x 3 Hyperlipidemia Atherosclerotic heart disease of [place] coronary artery without angina pectoris Dysarthria Stroke [...] x 3 Hyperlipidemia Atherosclerotic heart disease of [place] coronary artery without angina pectoris Dysarthria Stroke [...] embolism without acute cor pulmona 3-4 W 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 Reason for Visit History of coronary [...] embolism without acute cor pulmona 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 BILAT LEGS US [...] embolism without acute cor pulmona 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 BILAT LEGS US [...] embolism without acute cor pulmona 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 BILAT LEGS US F/U GROSS HEMATURIA WITH BLADDER MASS AND UTI Reason for Visit Bilateral pulmonary embolism S/P insertion of IVC (inferior vena caval) filter Barretts esophagus GI bleed S/P insertion of IVC (inferior vena caval) filter Hematuria Chief Complaint 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 BILAT LEGS US [...] kidney injury) Sepsis Chief Complaint 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 LEGS US [...] x 3 Hyperlipidemia Atherosclerotic heart disease of [place] coronary artery without angina pectoris Dysarthria Stroke [...] general illness August 16, 2024 5:2 9pm ALF LAB WORK August 17, 2024 5 :00am [...] general illness August 16, 2024 5:2 9pm ALF LAB WORK August 17, 2024 5 :00am ALF LAB WORK August 24, 2024 5 :00am Chief Complaint Admit Date EORDER June 13, 2024 2 :54pm general illness August 16, 2024 5:2 9pm ALF LAB WORK August 17, 2024 5 :00am ALF LAB WORK August 24, 2024 5 :00am CKD September 30, 2024 3:38pm Chief Complaint Admit Date general illness August 16, 2024 5:2 9pm ALF LAB WORK August 17, 2024 5 :00am ALF LAB WORK August 24, 2024 5 :00am [...] general illness August 16, 2024 5:2 9pm ALF LAB WORK August 17, 2024 5 :00am ALF LAB WORK August 24, 2024 5 :00am CKD September 30, 2024 3:38pm 6 M FU November 01, 2024 9:30a m Additional Source Comments (unrecognized sect ion and content) No Status Records FoundNo Status Records FoundNo Status Records FoundNo Status Records FoundNo Status Records Found INFORMATION SOURCE (unrecogn ized section and content) DATE CREATED AUTHOR 01/05/2020 [facility] ([place]) DATE CREATED AUTHOR AUTHOR'S ORGANIZ ATION 04/06/2021 [facility] DATE CREATED AUTHOR AUTHOR'S ORGANIZ ATION 06/30/[address] [facility] DATE CREATED AUTHOR AUTHOR'S ORGANIZ ATION 11/05/2024 [facility] DATE CREATED AUTHOR AUTHOR'S ORGANIZ ATION 11/16/2024 [facility] Goals (unrecognized section and content) Goals may [...] Care Provider, Referring Provider Active Myrna Bridges PIPELINE CONSTRUCTION INSPECTOR, PIPELINE CONSTRUCTION INSPECTOR-C Attending Provider Active Team Status: Active Member Role Status Dates Dr. Jose Hooks MD Primary Care Provider Active Dr. Winston Mclaughlin MD Attending Provider Active Rina Olivier [...] MD Primary Care Provider Active Myrna Bridges PIPELINE CONSTRUCTION INSPECTOR, PIPELINE CONSTRUCTION INSPECTOR-C Attending Provider, Referring P rovider Active Team Status: Active Member Role Status Dates Dr. Jose Hooks MD Primary Care Provider Active Myrna Bridges PIPELINE CONSTRUCTION INSPECTOR, PIPELINE CONSTRUCTION INSPECTOR-C Referring Provider, Other Provi kathie Active Dr. Eliseo Pittman MD Attending Provider Active Team Status: Inactive Member Role Status Dates Dr. Jose Hooks MD Primary Care Provider Active Myrna Bridges PIPELINE CONSTRUCTION INSPECTOR, PIPELINE CONSTRUCTION INSPECTOR-C Attending Provider, Referring P prem Active Dr. [...] Bindu Vazquez MD Other Provider Active Dr. Mevlina Luis MD Other Provider Active Dr. Ralph [...] Active Member Role Status Dates Juan Rodriguez PIPELINE CONSTRUCTION INSPECTOR-C Primary Care Provider Active Team Status: Inactive Member Role Status Dates Dr. Butch Barcenas DO Emergency Provider Active Start: April 25, 2024 End: April 28, 2024 Juan Rodriguez PIPELINE CONSTRUCTION INSPECTOR-C Primary Care Provider Active Start: April 25, [...] Active Start: April 25, 2024 Juan Rodriguez PIPELINE CONSTRUCTION INSPECTOR-C Primary Care Provider Active Start: April 25, [...] April 26, 2024 Dr. Joanna Sol MD Other Provider [...] Start: April 27, 2024 Juan Negro , PIPELINE CONSTRUCTION INSPECTOR-C Primary Care Provider Active Start: April 27, 2024 Dr. Joanna Sol MD Admit Provider Active St art: April 27, 2024 Dr. Joanna Sol MD Attending Provider Active Start: April 27, 2024 Dr. Joanna Sol MD Other Provider Active St art: April 27, 2024 Team Status: Active Member Role Status Dates Juan Rodriguez PIPELINE CONSTRUCTION INSPECTOR-C Primary Care Provider Active Start: April 27, 2024 Dr. Taco Rose DO Attending Provider Active Start: April 27, 2024 Dr. Joanna Sol MD Referring Provider Active Start: April 27, 2024 Team Status: Active Member Role Status Dates Dr. Butch Barcenas DO Emergency Provider Active Start: April 28, 2024 Juan Rodriguez PIPELINE CONSTRUCTION INSPECTOR-C Primary Care Provider Active Start: April 28, 2024 Dr. Joanna Sol MD Admit Provider Active St art: April 28, 2024 Dr. Joanna Sol MD Attending Provider Active Start: April 28, 2024 Dr. Joanna Sol MD Other Provider Active St art: April 28, 2024 Team Status: Inactive Member Role Status Dates Juan Rodriguez , PIPELINE CONSTRUCTION INSPECTOR-C Primary Care Provider Active Start: May 10, 2024 End: May 10, 2024 Juan Rodriguez PIPELINE CONSTRUCTION INSPECTOR-C Attending Provider Active St art: May 10, 2024 End: May 10, 2024 Juan Rodriguez PIPELINE CONSTRUCTION INSPECTOR-C Referring Provider Active St art: May 10, 2024 End: May 10, 2024 Team Status: Inactive Member Role Status Dates Juan Rodriguez PIPELINE CONSTRUCTION INSPECTOR-C Primary Care Provider Active Start: May 18, 2024 End: May 18, 2024 Juan Rodriguez PIPELINE CONSTRUCTION INSPECTOR-C Referring Provider Active St art: May 18, 2024 End: May 18, 2024 RANI Lorenz Attending Provider Active Start: May 18, 2024 End: May 18, 2024 Team Status: Inactive Member Role Status Dates Juan Rodriguez PIPELINE CONSTRUCTION INSPECTOR-C Primary Care Provider Active Start: May 18, 2024 End: May 18, 2024 Jackie Ballard NP-C Attending Provider Active Start: May 18, 2024 End: May 18, 2024 Jackie Ballard PIPELINE CONSTRUCTION INSPECTOR-C Referring Provider Active Start: May 18, 2024 End: May 18, 2024 Team Status: Inactive Member Role Status Dates Juan Rodriguez , PIPELINE CONSTRUCTION INSPECTOR-C Primary Care Provider Active Start: June 03, 2024 End: June 03, 2024 Juan Rodriguez , PIPELINE CONSTRUCTION INSPECTOR-C Attending Provider Active St art: June 03, 2024 End: June 03, 2024 Juan Rodriguez , PIPELINE CONSTRUCTION INSPECTOR-C Referring Provider Active St art: June 03, 2024 End: June 03, 2024 Team Status: Inactive Member Role Status Dates Juansammy Rodriguez , PIPELINE CONSTRUCTION INSPECTOR-C Primary Care Provider Active Start: June 06, 2024 End: June 06, 2024 Juan Rodriguez , PIPELINE CONSTRUCTION INSPECTOR-C Attending Provider Active St art: June 06, 2024 End: June 06, 2024 Juan Rodriguez , PIPELINE CONSTRUCTION INSPECTOR-C Referring Provider Active St art: June 06, 2024 End: June 06, 2024 Team Status: Active Member Role Status Dates Juan Rodriguez , PIPELINE CONSTRUCTION INSPECTOR-C Primary Care Provider Active Start: June 06, 2024 Juan Rodriguez , PIPELINE CONSTRUCTION INSPECTOR-C Referring Provider Active St art: June 06, 2024 Dr. Lm Maxwell MD Attending Provider Active S tart: June 06, 2024 Team Status: Inactive Member Role Status Dates Juan Rodriguez , PIPELINE CONSTRUCTION INSPECTOR-C Primary Care Provider Active Start: June 13, 2024 End: June 13, 2024 Jackie Ballard , PIPELINE CONSTRUCTION INSPECTOR-C Attending Provider Active Start: June 13, 2024 End: June 13, 2024 Jackie Ballard , PIPELINE CONSTRUCTION INSPECTOR-C Referring Provider Active Start: June 13, 2024 End: June 13, 2024 Team Status: Inactive Member Role Status Dates Juan Rodriguez , PIPELINE CONSTRUCTION INSPECTOR-C Primary Care Provider Active Start: July 15, 2024 End: July 15, 2024 Juan Rodriguez , PIPELINE CONSTRUCTION INSPECTOR-C Attending Provider Active St art: July 15, 2024 End: July 15, 2024 Juan Rodriguez , PIPELINE CONSTRUCTION INSPECTOR-C Referring Provider Active St art: July 15, 2024 End: July 15, 2024 Team Status: Inactive Member Role Status Dates Juansammy Rodriguez , PIPELINE CONSTRUCTION INSPECTOR-C Primary Care Provider Active Start: July 21, 2024 End: July 21, 2024 Dr. Day Newberry MD Attending Provider Active Start: July 21, 2024 End: July 21, 2024 Dr. Day Newberry MD Referring Provider Active Start: July 21, 2024 End: July 21, 2024 Team Status: Inactive Member Role Status Dates Juan Negro , PIPELINE CONSTRUCTION INSPECTOR-C Primary Care Provider Active Start: August 16, 2024 End: August 16, 2024 Dr. Rl Cadena DO Emergency Provider Active Start: August 16, 2024 End: August 16, 2024 Team Status: Inactive Member Role Status Dates Juan Negro , PIPELINE CONSTRUCTION INSPECTOR-C Primary Care Provider Active Start: August 16, 2024 End: August 16, 2024 Dr. Rl Cadena DO Attending Provider Active Start: August 16, 2024 End: August 16, 2024 Dr. Rl Cadena DO Emergency Provider Active Start: August 16, 2024 End: August 16, 2024 Team Status: Inactive Member Role Status Dates Juan Negro , PIPELINE CONSTRUCTION INSPECTOR-C Primary Care Provider Active Start: August 17, 2024 End: August 17, 2024 Dr. Yahaira RICE MD Attending Provider Active Start: August 17, 2024 End: August 17, 2024 Team Status: Active Member Role Status Dates Juansammy Rodriguez , PIPELINE CONSTRUCTION INSPECTOR-C Primary Care Provider Active Start: August 22, 2024 Dr. Yahaira RICE MD Attending Provider Active Start: August 22, 2024 Team Status: Active Member Role Status Dates Juan Negro , PIPELINE CONSTRUCTION INSPECTOR-C Primary Care Provider Active Start: August 24, 2024 Dr. Yahaira RICE MD Attending Provider Active Start: August 24, 2024 Team Status: Inactive Member Role Status Dates Juan Negro , PIPELINE CONSTRUCTION INSPECTOR-C Primary Care Provider Active Start: August 24, 2024 End: August 24, 2024 Dr. Yahaira RICE MD Attending Provider Active Start: August 24, 2024 End: August 24, 2024 Team Status: Inactive Member Role Status Dates Juan Negro , PIPELINE CONSTRUCTION INSPECTOR-C Primary Care Provider Active Start: September 30, [...] BE BASED ON THE PRIMARY CLINICAL RECORDS. [employer] [facility]. provides no warranty or guarantee of the accuracy or completeness of information in this document.
[2025-01-05 13:06] LABS: AST(SGOT) 15 U/L (<=37); Alanine Aminotransfer ALT/SGPT 6 U/L (<=46); Albumin, Serum 3.9 g/dL (3.4-4.8); Alkaline Phosphatase 74 U/L (40-129); Anion Gap 12 (5-15); BUN 16 mg/dL (4-19); BUN/Creat Ratio 11.9 RATIO (10-20); Calcium,Total 9.1 mg/dL (7.6-11.0); Carbon Dioxide 23.7 mmol/L (21.0-32.0); Chloride 107 mmol/L (98-108); Cholesterol 235 mg/dL (<=200); Globulin 2.7 g/dL (2.2-4.2); Glucose 87 mg/dL (70-99); Low Density Lipoprotein Calc. 157 mg/dL; Potassium 4.2 mmol/L (3.3-5.1); Triglycerides 220 mg/dL; Very Low Density Lipoprotein 44 mg/dL (5-40); cholesterol:hdl ratio screen 6.83
== END | disposition home or self-care (01) ==
LOC: MTLAB 10:47
PROVIDERS: PCP Nurse Practitioner Family; Referring Provider Internal Medicine Cardiovascular Disease; Visit Provider Internal Medicine Cardiovascular Disease
DX: I25.10 Atherosclerotic heart disease of native coronary artery without angina pectoris (principal)
CPT/HCPCS: 36415; 80053; 80061

== ENCOUNTER → 2025-02-01 | Outpatient (CLI) | payer MEDICARE, SELFPAY ==
[2023-04-13 08:14] VITALS: BMI 24.3
--- NOTE | 2025-02-01 09:37 | VDLE_ITS ---
Reason For Study Reason For Study: Left leg pain RIGHT LEFT CFV is compressible, spontaneous, phasic, competent GSV is normal. and demonstrates normal augmentation. CFV is compressible, spontaneous, phasic, competent, Procedure and demonstrates normal augmentation. This is a venous duplex using B-mode, color flow and FV is compressible, phasic, and INCOMPETENT for spectral Doppler. greater than 1.0 second. Exam performed in department. POP V is compressible, spontaneous, phasic, competent A preliminary report was called and/or faxed to Michael and demonstrates normal augmentation. GLASS CALIBRATOR-C. PTV is compressible. LT PerV is compressible. T/P trunk is partially compressible with bright intraluminal echoes consistent with Chronic DVT. Venous flow noted. PTV is compressible. LT PerV is compressible. Nonvascularized structure noted in the left popliteal fossa that measures 1.29 x 2.68 x 4.66 cm. VL/Venous Duplex US, Unilateral Interpretation Summary Chronic deep vein thrombosis noted in the left tibioperoneal trunk vein. Incidental reflux noted in the left femoral vein. Nonvascularized structure noted in the left popliteal fossa that measures 1.29 x 2.68 x 4.66 cm. Ordering Physician: Kayla Rodriguez Referring Physician: Kayla Rodriguez Performed By: Oneida Mcallister RVT
== END | disposition home or self-care (01) ==
PROVIDERS: PCP Nurse Practitioner Family; Referring Provider Nurse Practitioner Family; Visit Provider Nurse Practitioner Family
DX: M79.605 Pain in left leg (principal); Z86.718 Personal history of other venous thrombosis and embolism
CPT/HCPCS: 93971

== ENCOUNTER → 2025-03-01 | Outpatient (CLI) | payer MEDICARE, SELFPAY ==
[2023-04-13 08:14] VITALS: BMI 24.3
[2025-03-01 16:09] LABS: CRP 17.70 mg/L (0.0-3.0)
[2025-03-01 16:23] LABS: Hematocrit 39.2 % (40-54); Hemoglobin 13.0 g/dL (13.0-16.5); Immature Granulocytes Count 0.010 X10^3/uL (0.0-0.0); Mean Corp Hgb Conc 33.2 g/dL (32-36); Mean Corpuscular Volume 93.1 fL (80-94); Mean Platelet Vol. 10.2 fl (6.2-12.0); NRBC Flagged by Analyzer 0 % (0-5); Platelet Count 304 K/mm3 (150-450); RBC Distribution Width CV 13.5 % (11.6-14.6); RBC Distribution Width SD 45.5 fl (35.1-43.9); Red Blood Count 4.21 M/mm3 (4.6-6.2); White Blood Count 5.0 K/mm3 (4.4-11.0)
== END | disposition home or self-care (01) ==
LOC: MTLAB 12:55
PROVIDERS: PCP Nurse Practitioner Family; Referring Provider Specialist; Visit Provider Specialist
DX: T84.84XA Pain due to internal orthopedic prosthetic devices, implants and grafts, initial encounter (principal); T84.82XD Fibrosis due to internal orthopedic prosthetic devices, implants and grafts, subsequent encounter
CPT/HCPCS: 36415; 85025; 85652; 86140

== ENCOUNTER → 2025-05-10 | Outpatient (CLI) | payer MEDICARE, SELFPAY ==
[2023-04-13 08:14] VITALS: BMI 24.3
[2025-05-10 18:18] LABS: AST(SGOT) 14 U/L (<=37); Alanine Aminotransfer ALT/SGPT 12 U/L (<=46); Albumin, Serum 3.8 g/dL (3.4-4.8); Alkaline Phosphatase 71 U/L (40-129); Anion Gap 12 (5-15); BUN 25 mg/dL (4-19); BUN/Creat Ratio 18.8 RATIO (10-20); Calcium,Total 9.4 mg/dL (7.6-11.0); Carbon Dioxide 24.2 mmol/L (21.0-32.0); Chloride 109 mmol/L (98-108); Globulin 2.6 g/dL (2.2-4.2); Glucose 97 mg/dL (70-99); Magnesium 2.4 mg/dL (1.5-2.2); Potassium 4.5 mmol/L (3.3-5.1)
== END | disposition home or self-care (01) ==
LOC: MTLAB 15:59
PROVIDERS: PCP Nurse Practitioner Family; Referring Provider Internal Medicine Cardiovascular Disease; Visit Provider Internal Medicine Cardiovascular Disease
DX: I12.9 Hypertensive chronic kidney disease with stage 1 through stage 4 chronic kidney disease, or unspecified chronic kidney disease (principal); I43 Cardiomyopathy in diseases classified elsewhere; N18.9 Chronic kidney disease, unspecified; I25.10 Atherosclerotic heart disease of native coronary artery without angina pectoris; Z95.1 Presence of aortocoronary bypass graft; E78.5 Hyperlipidemia, unspecified; I49.3 Ventricular premature depolarization
CPT/HCPCS: 36415; 80053; 83735; 84443